=== PATIENT | male | born 1960 | race Caucasian/White ===

== ENCOUNTER 2017-01-29 14:13 | Inpatient (IN) | payer OTHER ==
[~2017-01-29] VITALS: Ht 188 cm; Wt 114.9 kg
[2017-01-29] VITALS (10 sets, daily range): BP systolic 12–150; BP diastolic 79–110
[~2017-01-29 14:13] MED LIST: AC325T; AC325T PO; AC500T PO; ACET-168 PO; ACET-2267 PO; ACID1TAB PO; AMOX-358 PO; AMPI500C9 PO; ASP325T PO; B&C/1TAB2 PO; CALC625T PO; CEFD300C3 PO; CEPH-38 PO; CEPH500C PO; CHOL4PAC16 PO; CIPR500T78 PO; CLAR-19 PO; CLIN-62 PO; CLON1TAB36 PO; CYCL-97 PO; DIAZ5TAB3 PO; DOCU-161 PO; GABA300C PO; GEMF600T3 PO; HYDR-2997 PO; HYDR-3583 PO; HYDR-3720 PO; HYDR-757 PO; HYDR1TAB85 PO; INSASP10V SQ; INSHRV SC; INSR1U SC; INSU100I16 SQ; INSU100I23 SQ; INSU100V5 SQ; INSU300I SQ; K-VANC1PB IV; LEVE1U SQ; LVF500T PO; MPR22TI TP; MTF500T PO; MULT-608 PO; MULT-974 PO; MULT1CAP27 PO; Multivitamins/Minerals Therap PO; OLOP30.5 NS; OXYC-12 PO; OXYC-272 PO; OXYC-465 PO; OXYC1TAB87 PO; PANT40VI3 IV; PNT40TEC PO; PROVIGIL 200 MG; ROSU10TA24 PO; SCR1T1 PO; SULF1TAB7 PO; VANCADD1 IV; VANCOMYCIN; ZOLP10TA5 PO; [UNRECOGNIZED DRUG - OTHER] IV
[2017-01-29] MEDS ORDERED: 1/2 NS W/KCL 20 MEQ/L 1,000 ML IV SCH (14:20)
[2017-01-29] MEDS ORDERED: 1/2 NS IV SOLUTION 1,000 ML IV SCH (14:20)
[2017-01-29] MEDS ORDERED: NS IV 1000 ML 1,000 ML IV ONE (14:20)
[2017-01-29] MEDS ORDERED: D5 1/2 NS W/KCL 20 MEQ/L 1,000 ML IV SCH (14:20)
[2017-01-29] MEDS ORDERED: D5 1/2 NS 1000 ML IV SOLUTION 1,000 ML IV SCH (14:30)
[2017-01-29] MEDS ORDERED: inSUlin REGULAR TPN/DRIP ONLY 250 UNITS in NORMAL SALINE 250 ML IV SCH (14:30)
--- NOTE | 2017-01-29 14:34 | History & Physicial ---
History of Present Illness History of Present Illness Reason for visit/HPI PT IS A 56 Y/O MALE WHO IS KNOWN TO ME FROM CLINIC. LUIS IS NOTORIOUSLY NON- COMPLIANT WITH DIABETIC MEDICATIONS AND ADMITS THAT HE HAS NOT BEEN TAKING HIS INSULIN FOR SEVERAL MONTHS. HIS REPORTS THAT THEY WERE ON A TRIP LAST WEEK, WHEN THEY GOT HOME ON SUNDAY HE WAS TIRED, AND SLEPT A LOT, AND WAS STILL "WIPED OUT" LAST NIGHT. THE PATIENT AND HIS REPORTS THAT LAST NIGHT HE WAS COMPLAINING OF HIS RIGHT ARM FEELING WEAK AND PAINFUL, THIS WAS AROUND 8PM, HE REPORTEDLY TOLD HER THAT THE SENSATION RESOLVED, AND THEN HE WENT TO BED. SHE CALLED TO WAKE HIM UP TODAY AROUND 10AM, HE WENT OUT TO FEED THE COWS, WAS STILL FEELING POORLY AND WAS SEEN IN THE OFFICE AROUND 2PM. HE DROVE HIMSELF TO THE OFFICE. BY THE TIME I GOT TO THE ROOM TO EVALUATE LUIS, HE WAS CONFUSED, NOT TRACKING CORRECTLY. DID NOT EAT BREAKFAST OR LUNCH TODAY AND HIS FSBS WAS 284. 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, 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 Recreational Drug Use: No 2nd Hand Smoke Exposure: No Physical Abuse Screen: No Sexual Abuse: No Recent Foreign Travel: No Contact w/other who traveled: No Recent Hopitalizations: Yes Recent Infectious Disease Expo: No Immunizations Up To Date Tetanus Booster (TDap): Unknown Date of Pneumonia Vaccine: Jan 02, 2011 Date of Influenza Vaccine: Aug 05, 2013 Seasonal Allergies Seasonal Allergies: No Surgeries HX Surgeries: Yes (BACK FUSION, bilateral toe amputation) Surgeries: Abdominal, Amputation, Appendectomy, Gallbladder, Orthopedic, Tonsillectomy Respiratory Hx Respiratory Disorders: No Cardiovascular Hx Cardiovascular Disorders: Yes Cardiac Disorders: High Cholesterol, Hypertension Neurological Hx Neurological Disorders: No Reproductive System Hx Reproductive Disorders: No Sexually Transmitted Disease: No HIV/AIDS: No Genitourinary Hx Genitourinary Disorders: No Gastrointestinal Hx Gastrointestinal Disorders: Yes Gastrointestinal Disorders: Abdominal Hernia Musculoskeletal Hx Musculoskeletal Disorders: Yes Musculoskeletal Disorders: Degenerate Disk Disease, Chronic Back Pain Endocrine Hx Endocrine Disorders: Yes Endocrine Disorders: Diabetes, Insulin dep HEENT HX ENT Disorders: No Loss of Vision: Denies Hearing Impairment: Denies Cancer Hx Cancer: No Psychosocial Hx Psychiatric Problems: Yes Behavioral Health Disorders: Anxiety, Depression Integumentary HX Skin/Integumentary Disorder: No Blood Transfusions Hx Blood Disorders: No Adverse Reaction to a Blood Tr: No Reviewed Nursing Assessment Reviewed/Agree w Nursing PMH: Yes Family Medical History Significant Family History: Heart Disease, Diabetes, Hypertension Family Hx: Family history: Cardiovascular disease 19 FATHER Family history: Diabetes mellitus 19 MOTHER Constitutional: No chills, No diaphoresis, malaise, weakness EENTM: other (VISION CHANGES PER FAMILY), No hearing loss Respiratory: No cough, No dyspnea on exertion, No short of breath Cardiovascular: No chest pain, No palpitations Gastrointestinal: abdominal pain (MID EPIGASTRIC), diarrhea (RECENTLY) Genitourinary: no symptoms reported Musculoskeletal: muscle pain (RIGHT ARM), muscle weakness Skin: other (SMALL ABRASION OF DORSUM OF GREAT TOES BILATERALLY) Psychiatric/Neurological: Denies Anxiety, Denies Headache, Denies Pre-Existing Deficit, Denies Tingling, Denies Tremors, Weakness (RIGHT ARM AND LEG) Physical Exam Vital Signs Vital Sign - Last 12Hours 01/29/17 14:30 Temp 99.3 Pulse 77 Resp 18 B/P (MAP) 129/91 Pulse Ox 99 O2 Delivery Room Air Capillary Refill : General Appearance: Other (MODERATE CONFUSION/WORD FINDING DIFFICULTY, ABLE TO STATE MY FIRST NAME AND THAT HE IS AT HOSPITAL) Eyes: Bilateral Eye EOMI, Bilateral Eye Normal Inspection, Bilateral Eye PERRL HEENT: Other (SLIGHTLY SLUGGISH PUPILS) Neck: Full Range of Motion, Normal Inspection, Non Tender, Supple Respiratory: Chest Non Tender, Lungs Clear, Normal Breath Sounds, No Accessory Muscle Use, No Respiratory Distress Cardiovascular: Regular Rate, Rhythm, No Edema, No Murmur, Other (DECREASED PERIPHERAL PULSES) Gastrointestinal: No Organomegaly, No Pulsatile Mass, Soft, Tenderness ( EPIGASTRIC), Other (DECREASED BOWEL SOUNDS) Rectal: Deferred Back: Normal Inspection, No Vertebral Tenderness Extremity: No Pedal Edema, Slow Capillary Refill, Other (AMPUTATION OF ALL DIGITS EXCEPT GREAT TOE ON LEFT FOOT AND TWO DIGITS ON RIGHT) Neurologic/Psychiatric: Motor Weakness (RIGHT UPPER AND LOWER EXTREMITY 3/5, LEFT 5/5), Other (AROUSABLE, ORIENTED TO PERSON, PLACE, NOT TIME, SLOW TO RESPOND) Skin: Warm/Dry Lymphatic: No Adenopathy Assessment/Plan Assessment and Plan WEAKNESS CONFUSION ENCEPHALOPATHY UNDETERMINED ETIOLOGY NONCOMPLIANT DIABETIC INSULIN DEPENDENT DIABETES HYPERTENSION HYPERLIPIDEMIA UPPER AND LOWER EXTREMITY WEAKNESS ON RIGHT HX OF INSECT BITES RECENT GASTROINTESTINAL ILLNESS RECENT TRAVEL TO [place] ENCEPHALOPATHY WITH WEAKNESS, HX OF INSECT BITES, TRAVEL ON PLANE - WILL TREAT WITH BROAD SPECTRUM ANTIBIOTICS, WAITING ON LUMBAR PUNCTURE, BLOOD CULTURE, MRI NEGATIVE, CT HEAD NEGATIVE, CAROTID NEGATIVE FOR MAJOR PLAQUE BUILD UP. PT'S HAS HISTORY OF ORAL APHTHOUS ULCERS, LAST ONE 3 WEEKS AGO - WILL TREAT PT WITH ACYCLOVIR IV, ONCE ABLE TO RELIABLY TAKE ORAL MEDICATIONS, WILL TREAT WITH ORAL ACYCLOVIR. HX OF INSECT BITES, SPECIFICALLY TIC - WILL CHECK TICK PANEL AND TREAT WITH IV DOXYCYCLINE UNTIL TICK PANEL COMES BACK. RECENT GI ILLNESS - CHECK CT SCAN OF ABDOMEN AND PELVIS. HYPERLIPIDEMIA - WHEN TAKING PO- WILL START LUIS ON STATIN HTN - START ON AZEB-INHIBITOR WHEN TAKING PO DIABETES - DIABETIC PROTOCOL WITH SLIDING SCALE, MONITOR FSBS CLOSELY. I HAVE DISCUSSED PT WITH [facility] - THEY DID NOT SEE ANY SIGN OF STROKE ON MRI, RECOMMENDED AGAINST ANY ACUTE STROKE TREATMENT AT THIS TIME. I HAVE INFORMED PT'S FAMILY OF THE PLAN AND THEY VOCALIZED UNDERSTANDING AND AGREEMENT WITH THE PLAN. Problems: Admission Diagnosis WEAKNESS CONFUSION ENCEPHALOPATHY UNDETERMINED ETIOLOGY NONCOMPLIANT DIABETIC INSULIN DEPENDENT DIABETES HYPERTENSION HYPERLIPIDEMIA UPPER AND LOWER EXTREMITY WEAKNESS ON RIGHT HX OF INSECT BITES RECENT GASTROINTESTINAL ILLNESS RECENT TRAVEL TO [place] ROSA MARIA HA MD Jan 29, 2017 14:34
--- NOTE | 2017-01-29 15:14 | Diagnostic Imaging Report ---
EXAM: CT head. TECHNIQUE: Noncontrast axial images of the brain were obtained. INDICATION: Confusion. Right arm weakness. FINDINGS: There is no intracranial hemorrhage, edema or mass effect. The brain parenchyma appears unremarkable. No hydrocephalus. The visualized portions of the orbits and paranasal sinuses appear unremarkable. IMPRESSION: Unremarkable study. Dictated by: Dictated on workstation # [id number]
[2017-01-29] MEDS ORDERED: ACET325T49 PO (15:51)
[2017-01-29] MEDS ORDERED: CLON1TAB3 PO (15:51)
[2017-01-29] MEDS ORDERED: LIDOCAINE UROJET 2% GEL 10 ML PKG ONE (15:52)
[2017-01-29] MEDS ORDERED: CATHETER FLUSH 10 ML SYR IV PRN (16:00)
[2017-01-29 16:12] LABS: MEAN PLATELET VOLUME 11.1 FL (7.4-10.4); RED BLOOD COUNT 5.56 10^6/uL (4.35-5.85); RED CELL DISTRIBUTION WIDTH 12.9 % (10.0-14.5); WHITE BLOOD COUNT 6.4 10^3/uL (4.3-11.0)
[2017-01-29 16:25] LABS: ANION GAP 10 MMOL/L (5-14); BLOOD UREA NITROGEN 15 MG/DL (7-18); BUN/CREATININE RATIO 15; CARBON DIOXIDE 23 MMOL/L (21-32); CHLORIDE 102 MMOL/L (98-107); CREATININE SERUM 1.01 MG/DL (0.60-1.30); POTASSIUM 4.1 MMOL/L (3.6-5.0); SODIUM 135 MMOL/L (135-145)
[2017-01-29 16:26] LABS: GFR ESTIMATED > 60; GLUCOSE 252 MG/DL (70-105)
[2017-01-29] MEDS ORDERED: FLU TRIvalent (5 YOA+) 2016-17 (AFLURIA) 0.5 ML IM ONE (17:30)
[2017-01-29 17:49] LABS: PROTHROMBIN TIME PATIENT 12.7 SEC (12.2-14.7)
[2017-01-29 17:50] LABS: BILIRUBIN,URINE NEGATIVE (NEGATIVE); KETONES,URINE 3+ (NEGATIVE); LEUKOCYTE ESTERASE ,URINE NEGATIVE (NEGATIVE); NITRITE,URINE NEGATIVE (NEGATIVE); PH,URINE 7 (5-9); PROTEIN,URINE 1+ (NEGATIVE); UROBILINOGEN,URINE NORMAL (NORMAL)
[2017-01-29] MEDS ORDERED: GADOBUTROL 15 MMOL/15 ML (GADAVIST) VIAL IV ONE (18:00)
--- NOTE | 2017-01-29 18:28 | Diagnostic Imaging Report ---
PROCEDURE: MR imaging of the brain with and without contrast. TECHNIQUE: Multiplanar, multisequence MR imaging of the brain was performed with and without contrast. INDICATION: Altered mental status, speech abnormalities, and right-sided weakness. FINDINGS: The diffusion series demonstrates no evidence of restriction to suggest acute ischemia. There is no MR evidence of acute intracranial hemorrhage. Sutton and white matter signal characteristics appear unremarkable. There is no intracranial mass effect or shift. There is no hydrocephalus. There is no abnormal extra-axial fluid collection. The basilar cisterns appear patent. The posterior fossa demonstrates no acute abnormalities. The pituitary gland and the pineal region appear normal. There is normal alignment of the craniocervical junction. Post contrast imaging of the brain demonstrates no MR evidence of pathologic intracranial enhancement. The intraorbital contents appear unremarkable. There are few fluid-opacified left mastoid air cells. The paranasal sinuses are clear. Expected arterial and dural venous sinus flow voids appear preserved. IMPRESSION: 1. No MR evidence of an acute intracranial abnormality. There is no evidence of acute ischemia or hemorrhage. There is no mass effect or hydrocephalus. There is no focal parenchymal signal abnormality and there is no evidence of pathologic intracranial enhancement. Dictated by: Dictated on workstation # [id number]
[2017-01-29] MEDS: NS IV 1000 ML 1,000 ML IV SCH (18:29)
[2017-01-29] MEDS: inSUlin (REGULAR) HUMAN 1 UNIT/0.01 ML (CHARGE PER UNIT) SC SCH (18:30)
[2017-01-29] MEDS ORDERED: VANCOMYCIN INJECTION 0.1 MG in NS (IVPB) 250 ML IV SCH (18:45)
[2017-01-29 19:08] LABS: ANION GAP 9 MMOL/L (5-14); BLOOD UREA NITROGEN 14 MG/DL (7-18); BUN/CREATININE RATIO 14; CALCIUM 8.6 MG/DL (8.5-10.1); CARBON DIOXIDE 24 MMOL/L (21-32); CHLORIDE 104 MMOL/L (98-107); GFR ESTIMATED > 60; GLUCOSE 201 MG/DL (70-105); POTASSIUM 3.7 MMOL/L (3.6-5.0); SODIUM 137 MMOL/L (135-145)
--- NOTE | 2017-01-29 19:18 | Diagnostic Imaging Report ---
PROCEDURE: CT abdomen and pelvis without contrast. TECHNIQUE: Multiple contiguous axial images were obtained through the abdomen and pelvis without the use of intravenous contrast. INDICATION: Abdominal tenderness. COMPARISON: CT abdomen and pelvis of 04/03/2014 FINDINGS: The lung bases are clear. No pericardial or pleural effusion. Kidneys are symmetric in size. No renal or ureteral calculi. No obstructive uropathy on either side. Urinary bladder is decompressed by Romero catheter. Prostate is not enlarged. Evaluation of the abdominal viscera is mildly limited without IV contrast. Allowing for this, liver, spleen, pancreas, and adrenals are normal. The stomach is decompressed. No bowel obstruction. Cholecystectomy. No bile duct dilatation. No pericolonic inflammatory changes. The appendix is normal. Normal caliber abdominal aorta. No abdominal or pelvic lymphadenopathy. No concerning osseous lesions. Long segment posterior instrumented fusion in the lower lumbar spine. There is also changes of discectomies in the lower lumbar spine. IMPRESSION: 1. No acute intra-abdominal process. 2. No abdominal aortic aneurysm. Dictated by: Dictated on workstation # [id number]
[2017-01-29 19:30] LABS: THYROID STIMULATING HORMONE 1.11 UIU/ML (0.35-4.94)
[2017-01-29] MEDS ORDERED: VANCOMYCIN 2000 MG/NS 500 ML IVPB IV NR ×2 (19:30)
[2017-01-29 19:32] LABS: BILIRUBIN,DIRECT 0.3 MG/DL (0.0-0.3); BILIRUBIN,INDIRECT 1.1 MG/DL; BILIRUBIN,TOTAL 1.4 MG/DL (0.1-1.0); MAGNESIUM 1.8 MG/DL (1.8-2.4); PHOSPHORUS 1.3 MG/DL (2.3-4.7)
[2017-01-29 19:33] LABS: ALBUMIN 3.7 G/DL (3.2-4.5); TOTAL PROTEIN 6.9 G/DL (6.4-8.2)
--- NOTE | 2017-01-29 20:08 | Progress Note-Standard ---
Standard Progress Note Progress Notes/Assess & Plan Progress/Assessment & Plan 01/29/17 [id number]: Called to ICU [address] Ha. Platelet count > 100, [address] of head normal. Consent obtained from patient's ; however, patient did consent by shaking his head yes. Patients LP was performed in a left lateral position. Midline scar noted on patient's lower back from what the patient indicated to me was from a fusion. Landmarks easy to identify. Patient' s lower back was cleaned with chloraprep. Sterile drape applied. 22g 3.5 inch spinal needle utilized to access space after 2 cc Lidocaine. CSF was easily obtained with 1 stick and opening pressure was measured at 32 mm Hg. A total of 4 cc of CSF was collected in each of the 4 vials, in numerical order 1-4. CSF was clear. Needle removed and bandaid applied over site. No complications. Patient tolerated well and assisted back to supine position. I will call appearance of CSF and opening pressure to Dr. Ha. Reported off to [employer]PERATOR. YASMINE THOMAS CRNA Jan 29, 2017 20:08
[2017-01-29 20:13] LABS: APPEARANCE,CSF CLEAR; COLOR,CSF COLORLESS; WHITE BLOOD CELL,CSF 0 CELLS (0-5)
[2017-01-29 20:30] LABS: ANION GAP 10 MMOL/L (5-14); BLOOD UREA NITROGEN 14 MG/DL (7-18); BUN/CREATININE RATIO 14; CALCIUM 8.8 MG/DL (8.5-10.1); CARBON DIOXIDE 24 MMOL/L (21-32); CHLORIDE 103 MMOL/L (98-107); CREATININE SERUM 1.01 MG/DL (0.60-1.30); GFR ESTIMATED > 60; GLUCOSE 181 MG/DL (70-105); POTASSIUM 3.8 MMOL/L (3.6-5.0); SODIUM 137 MMOL/L (135-145)
[2017-01-29 20:33] LABS: CSF GLUCOSE 138 MG/DL (50-80); CSF TOTAL PROTEIN 74 MG/DL (15-40)
[2017-01-29] MEDS: POTASSIUM CL 10MEQ/50ML IVPB 50 ML IV SCH ×2 (20:54→21:20)
[2017-01-29] MEDS ORDERED: clonazePAM 1 MG (KlonoPIN) TAB PO SCH (21:00)
[2017-01-29] MEDS: DOXYCYCLINE INJECTION 100 MG in NS (IVPB) 100 ML IV SCH (21:55)
[2017-01-29] MEDS: cefTRIAXone INJECTION 2,000 MG in NS (IVPB) 50 ML IV SCH (21:55)
[2017-01-29] MEDS ORDERED: clonazePAM 1 MG (KlonoPIN) TAB ONE (22:05)
[2017-01-29] MEDS ORDERED: ACETAMINOPHEN 325 MG TABLET/CAPLET (TYLENOL) ONE (22:06)
[2017-01-29] MEDS: ACETAMINOPHEN 325 MG TABLET/CAPLET (TYLENOL) PO PRN (22:20)
[2017-01-29] MEDS: NS IV SCH (23:58)
[2017-01-29] MEDS: ACYCLOVIR IV SCH (23:58)
[2017-01-30] VITALS (15 sets, daily range): BP systolic 97–136; BP diastolic 60–86
[2017-01-30] MEDS: inSUlin (REGULAR) HUMAN 1 UNIT/0.01 ML (CHARGE PER UNIT) SC SCH ×2 (00:32→05:50)
[2017-01-30] MEDS: NS IV 1000 ML 1,000 ML IV SCH ×3 (03:00→23:00)
[2017-01-30 04:01] LABS: BASOPHILS % (AUTO) 0 % (0-10); EOSINOPHILS # (AUTO) 0.1 10^3/uL (0.0-0.3); EOSINOPHILS % (AUTO) 1 % (0-10); LYMPHOCYTES # (AUTO) 2.5 X 10^3 (1.0-4.0); LYMPHOCYTES % (AUTO) 35 % (12-44); MEAN CORPUSCULAR HEMOGLOBIN 30 PG (25-34); MEAN CORPUSCULAR HGB CONC 36 G/DL (32-36); MEAN CORPUSCULAR VOLUME 83 FL (80-99); MEAN PLATELET VOLUME 10.5 FL (7.4-10.4); MONOCYTES # (AUTO) 0.6 X 10^3 (0.0-1.0); MONOCYTES % (AUTO) 8 % (0-12); NEUTROPHILS % (AUTO) 56 % (42-75); PLATELET COUNT 144 10^3/uL (130-400); RED BLOOD COUNT 5.16 10^6/uL (4.35-5.85); RED CELL DISTRIBUTION WIDTH 13.1 % (10.0-14.5); WHITE BLOOD COUNT 7.2 10^3/uL (4.3-11.0)
[2017-01-30 04:26] LABS: ALANINE AMINOTRANSFERASE 17 U/L (0-55); ALBUMIN 3.3 G/DL (3.2-4.5); ANION GAP 11 MMOL/L (5-14); ASPARTATE AMINO TRANSFERASE 18 U/L (5-34); BILIRUBIN,TOTAL 1.2 MG/DL (0.1-1.0); BLOOD UREA NITROGEN 14 MG/DL (7-18); BUN/CREATININE RATIO 14; CALCIUM 8.2 MG/DL (8.5-10.1); CARBON DIOXIDE 20 MMOL/L (21-32); CHLORIDE 107 MMOL/L (98-107); CHOLESTEROL 290 MG/DL (< 200); CREATININE SERUM 0.98 MG/DL (0.60-1.30); DIRECT LDL 138 MG/DL (1-129); GFR ESTIMATED > 60; GLUCOSE 168 MG/DL (70-105); MAGNESIUM 1.9 MG/DL (1.8-2.4); PHOSPHORUS 2.8 MG/DL (2.3-4.7); POTASSIUM 3.8 MMOL/L (3.6-5.0); SODIUM 138 MMOL/L (135-145); TOTAL PROTEIN 6.2 G/DL (6.4-8.2); TRIGLYCERIDES 493 MG/DL (<150); VLDL CHOLESTEROL 99 MG/DL (5-40)
[2017-01-30] MEDS: POTASSIUM CL 10MEQ/50ML IVPB 50 ML IV SCH (04:55)
[2017-01-30] MEDS: NS IV SCH (05:50)
[2017-01-30] MEDS: ENOXAPARIN 40 MG/0.4 ML (LOVENOX) SYR SC SCH (05:50)
[2017-01-30] MEDS: ACYCLOVIR IV SCH (05:50)
[2017-01-30] MEDS ORDERED: POTASSIUM CL 10MEQ/50ML IVPB 50 ML IV SCH (06:00)
[2017-01-30] MEDS ORDERED: KCL 20 MEQ TAB (K-DUR) PO SCH (06:00)
[2017-01-30] MEDS ORDERED: MAGNESIUM 1 GM/100 ML IVPB 100 ML IV SCH (06:00)
[2017-01-30] MEDS: DOXYCYCLINE INJECTION 100 MG in NS (IVPB) 100 ML IV SCH ×2 (08:07→20:07)
[2017-01-30] MEDS: VANCOMYCIN 1,750 MG/NS 500 ML IVPB IV SCH ×4 (08:07→20:58)
[2017-01-30] MEDS: cefTRIAXone INJECTION 2,000 MG in NS (IVPB) 50 ML IV SCH ×2 (08:07→20:37)
--- NOTE | 2017-01-30 08:24 | Diagnostic Imaging Report ---
PROCEDURE: US Carotid Duplex Bilateral. TECHNIQUE: Multiple real-time grayscale images were obtained over the carotid arteries in various projections bilaterally. Additional duplex Doppler and color Doppler images were also obtained. INDICATION: Confusion. Concern for TIA. FINDINGS: The carotid arteries demonstrate no significant plaque seen on grayscale images. Color Doppler demonstrates patency of the common, internal and external carotid arteries on both sides. The vertebral arteries demonstrate antegrade flow bilaterally. Peak systolic velocities are 44 cm/s, 68 cm/s and 82 cm/s from proximal to distal on the right and 59 cm/s, 60 cm/s and 53 cm/s on the left. ICA/CCA ratios are up to 1.1 on the right and 0.7 on the left. IMPRESSION: Estimated underlying stenosis is 0-25% bilaterally. Dictated by: Dictated on workstation # [id number]
--- NOTE | 2017-01-30 08:49 | Progress Note (SOAP) ---
Subjective Subjective/Events-last exam PT STATES THAT HE IS A LITTLE BETTER TODAY - HE DENIES CHEST PAIN, FEELING SHORT OF BREATH. HE REPORTS THAT HE FEELS A LITTLE STRONGER Review of Systems General: No Chills, No Fatigue HEENT: No Head Aches Pulmonary: No Dyspnea, No Cough Cardiovascular: No: Chest Pain Gastrointestinal: No: Abdominal Pain, Nausea Genitourinary: No Dysuria Neurological: Weakness (RIGHT HAND), No: Confusion Objective Exam Vital Signs Date Time Temp Pulse Resp B/P (MAP) Pulse Ox O2 Delivery O2 Flow Rate FiO2 01/30/17 07:00 87 01/30/17 06:00 78 6 109/80 98 Room Air 01/30/17 05:00 76 5 106/68 95 Room Air 01/30/17 04:22 96.9 01/30/17 04:00 98 01/30/17 04:00 84 5 113/75 97 Room Air 01/30/17 03:00 92 11 104/70 92 Room Air 01/30/17 02:00 17 99/70 95 Room Air 01/30/17 01:00 95 17 97/70 96 Room Air 01/30/17 01:00 96 01/30/17 00:01 97.1 89 18 136/81 100 Room Air 01/30/17 00:00 97 01/29/17 23:00 78 13 135/85 97 Room Air 01/29/17 22:00 73 12 12/79 97 Room Air 01/29/17 21:00 81 9 126/86 97 Room Air 01/29/17 20:00 97.6 98 20 126/103 100 Room Air 01/29/17 20:00 100 01/29/17 19:00 150/110 01/29/17 19:00 94 01/29/17 18:00 147/88 01/29/17 17:00 76 10 129/84 94 Room Air 01/29/17 16:00 75 18 132/91 98 Room Air 01/29/17 15:00 78 20 144/94 98 Room Air 01/29/17 14:30 99.3 77 18 129/91 98 Room Air 01/29/17 14:30 99 I & O 01/30/17 06:59 Intake Total 50 ml Output Total 900 ml Balance -850 ml Capillary Refill : Greater Than 3 Seconds General Appearance: No Apparent Distress, WD/WN HEENT: PERRL/EOMI, Pharynx Normal Neck: Full Range of Motion, Supple Respiratory: Chest Non Tender, Lungs Clear, Normal Breath Sounds Cardiovascular: Regular Rate, Rhythm Gastrointestinal: normal bowel sounds, non tender, soft, no organomegaly, no pulsatile mass Extremity: Normal Capillary Refill, No Pedal Edema, Other (SURGICAL DEFORMITIES OF FEET) Neurologic/Psychiatric: Alert, Oriented x3, No Motor/Sensory Deficits, Normal Mood/Affect Skin: Warm/Dry Lymphatic: No Adenopathy Results Lab Bad table Assessment/Plan Assessment/Plan Assess & Plan/Chief Complaint WEAKNESS CONFUSION ENCEPHALOPATHY UNDETERMINED ETIOLOGY NONCOMPLIANT DIABETIC INSULIN DEPENDENT DIABETES HYPERTENSION HYPERLIPIDEMIA UPPER AND LOWER EXTREMITY WEAKNESS ON RIGHT HX OF INSECT BITES RECENT GASTROINTESTINAL ILLNESS RECENT TRAVEL TO [place] ENCEPHALOPATHY WITH WEAKNESS, HX OF INSECT BITES, TRAVEL ON PLANE - WILL TREAT WITH BROAD SPECTRUM ANTIBIOTICS, WAITING ON LUMBAR PUNCTURE, BLOOD CULTURE, MRI NEGATIVE, CT HEAD NEGATIVE, CAROTID NEGATIVE FOR MAJOR PLAQUE BUILD UP. PT'S HAS HISTORY OF ORAL APHTHOUS ULCERS, LAST ONE 3 WEEKS AGO - WILL TREAT PT WITH ACYCLOVIR IV, ONCE ABLE TO RELIABLY TAKE ORAL MEDICATIONS, WILL TREAT WITH ORAL ACYCLOVIR. HX OF INSECT BITES, SPECIFICALLY TIC - WILL CHECK TICK PANEL AND TREAT WITH IV DOXYCYCLINE UNTIL TICK PANEL COMES BACK. RECENT GI ILLNESS - CHECK CT SCAN OF ABDOMEN AND PELVIS. HYPERLIPIDEMIA - WHEN TAKING PO- WILL START LUIS ON STATIN HTN - START ON AZEB-INHIBITOR WHEN TAKING PO DIABETES - DIABETIC PROTOCOL WITH SLIDING SCALE, MONITOR FSBS CLOSELY. I HAVE DISCUSSED PT WITH NEUROLOGY - THEY DID NOT SEE ANY SIGN OF STROKE ON MRI, RECOMMENDED AGAINST ANY ACUTE STROKE TREATMENT AT THIS TIME. I HAVE INFORMED PT'S FAMILY OF THE PLAN AND THEY VOCALIZED UNDERSTANDING AND AGREEMENT WITH THE PLAN. Clinical Quality Measures DVT/VTE Risk/Contraindication: Risk Factor Score Per Nursin RFS Level Per Nursing on Admit: 4+=Very High Stroke: Date of last known well: Jan 28, 2017 ROSA MARIA PRADO MD Jan 30, 2017 08:49
--- NOTE | 2017-01-30 09:18 | Diagnostic Imaging Report ---
INDICATION: Confusion, right-sided weakness. EXAMINATION: Chest 01/30/2017 Comparison made with prior examination from 12/01/15. FINDINGS: The heart is prominent but stable. Pulmonary vasculature is unremarkable. No infiltrates or effusions appreciated. There is no pneumothorax. IMPRESSION: 1. Stable chest with no acute process. Dictated by: Dictated on workstation # [id number]
--- NOTE | 2017-01-30 10:26 | Physical Therapy Evaluation ---
PT Evaluation-General Medical Diagnosis Admission Date Jan 29, 2017 at 14:30 Medical Diagnosis: diabetic ketoacidosis and right sided weakness Onset Date: Jan 29, 2017 Therapy Diagnosis Therapy Diagnosis: impaired mobility, endurance Height/Weight Height (Feet): 6 Height (Inches): 2.00 Weight (Pounds): 246 Weight (Ounces): 9.0 Precautions Precautions/Isolations: Standard Precautions Referral Physician: Melida Ha MD Reason for Referral: Evaluation/Treatment Medical History Pertinent Medical History: DM, HTN Additional Medical History high cholesterol, abdominal hernia, DDD, chronic back pain, anxiety, depression , surg (bilateral toe amputations, back fusions, abdominal, appendectomy, gallbladder, tonsillectomy) Current History Admitted from Dr. Ha's office with confusion, right side weakness Reviewed History: Yes Social History Home: [facility] Current Living Status: Spouse Unsure about steps, patient is a poor historian. Prior/Core FIM Prior Level of Function Functional [place] Measure 0=Not Assessed/NA 4=Minimal Assistance 1=Total Assistance 5=Supervision or Setup 2=Maximal Assistance 6=Modified [place] 3=Moderate Assistance 7=Complete [place] Bed Mobility: 7 Transfers (B,C,W/C) (FIM): 7 Gait: 7 PT Evaluation-Current Subjective Patient in bed pre tx, agrees to PT. He is nauseated but is willing to do what he can. He has no complaints of pain at this time. Pt/Family Goals "to get better and go home" Objective Patient Orientation: Confused Attachments: Romero Catheter, IV ROM/Strength ROM Lower Extremities WNL Strenght Lower Extremities 4+/5 gross bilateral lower extremities Integumentary/Posture Bladder Incontinence: Romero Cath Neuromuscular (Tone, Coordination, Reflexes) WNL Sensory Vision: Functional Hearing: Functional Sensation Right Lower Extremit: Impaired Sensation Left Lower Extremity: Impaired Sensation Lower Extremities Patient seems to have intact light touch sensation but it is decreased according to patient. Transfers Functional [place] Measure 0=Not Assessed/NA 4=Minimal Assistance 1=Total Assistance 5=Supervision or Setup 2=Maximal Assistance 6=Modified [place] 3=Moderate Assistance 7=Complete [place] Transfers (B, C, W/C) (FIM): 4 Scootin Rollin Supine to/from Sit: 5 Sit to/from Stand: 4 required some effort to go from supine to sit but he was able to do it without assist, patient did stand at the edge of the bed for a few minutes Gait Gait (FIM): 1 Distance: 3' Gait Level of Assist: 4 Gait Persons Needed: 1 Gait Assistive Device: None Comments/Gait Description slow, patient is not feeling well and did not want to walk further Balance Sitting Static: Normal Sitting Dynamic: Normal Standing Static: Fair Standing Dynamic: Fair Treatment evaluation, bed mobility and transfers, ambulation. Patient in recliner post tx with nurse call, phone, tray, all needs met. Nurse notified patient is in a chair. Assessment/Needs Patient is confused, has impairments in mobility, endurance. He was also ill and that could have contributed to his mobility impairments. 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 Time Frame: Feb 06, 2017 Transfers (B,C,W/C) (FIM): 5 Gait (FIM): 2 Distance: 50' Gait Level of Assist: 5 Gait Assistive Device: FWW PT Plan Problem List Problem List: Activity Tolerance, Functional Strength, Safety, Balance, Gait, Transfer Treatment/Plan Treatment Plan: Continue Plan of Care Treatment Plan: Bed Mobility, Education, Functional Activity Amy, Functional Strength, Gait, Safety, Therapeutic Exercise, Transfers Treatment Duration: Feb 06, 2017 # of days/week 5-6 Visits Per Week: 5-6 Minutes/Day (M-F): 15-30 Minutes/Day (Sat/For[place]): 15-30 Pt/Family Agrees w/Plan: Yes Safety Risks/Education Patient Education: Gait Training, Transfer Techniques, Correct Positioning, Safety Issues Teaching Recipient: Patient Teaching Methods: Demonstration, Discussion Response to Teaching: Reinforcement Needed Discharge Recommendations Therapy D/C Recommendations: Home w/ Family Support Time/GCodes Time In: 1000 Time Out: 1020 Total Billed Treatment Time: 20 Total Billed Treatment 1 visit EVL 20 min MAGDALENA WEN PT Jan 30, 2017 10:26
--- NOTE | 2017-01-30 11:19 | Occupational Therapy Eval ---
OT Evaluation-General/PLF Medical Diagnosis Admission Date Jan 29, 2017 at 14:30 Medical Diagnosis: diabetic ketoacidosis and right sided weakness Onset Date: Jan 29, 2017 Therapy Diagnosis Therapy Diagnosis: weakness, decr activity tolerance, decr self care Height/Weight Height (Feet): 6 Height (Inches): 2.00 Weight (Pounds): 246 Weight (Ounces): 9.0 Precautions Precautions/Isolations: Droplet Isolation, Standard Precautions Safety Interventions: None Referral Physician: Melida Ha MD Referral Reason: Evaluation/Treatment Medical History Pertinent Medical History: DM, HTN Additional Medical History Back fusion, bilat toe amputation, abdominal hernia, DJD, chronic back pain, anxiety, depression. Current History Weakness on R, confusion, encephalopathy Reviewed History: Yes Social History Home: [facility] Current Living Status: Spouse ADL-Prior Level of Function ADL PLOF Comments Pt reproted that he has been able to manage all of his basic ADLs without assistance. 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 Reported he has a headache a the base of his skull but did not rate or describe pain. Appearance Alert, cooperative Mental Status/Objective Patient Orientation: Person, Place, Situation Attachments: Romero Catheter, IV, Oxygen, Telemetry Current Hand Dominance: Right Upper Extremity ROM Grossly WFL except unable to fully extend R elbow due to discomfort. 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 It has returned. He thinks it's likely tendonitis. Upper Extremity Strength Grossly 4+/5 bilat (except R elbow) ADL-Treatment ADL-Current Pt hasn't been up out of bed to eat or toilet. Functional [place] Measure 0=Not Assessed/NA 4=Minimal Assistance 1=Total Assistance 5=Supervision or Setup 2=Maximal Assistance 6=Modified [place] 3=Moderate Assistance 7=Complete IndependenceIRFPAI Quality Coding Scale 6 Independent with activity with or without an assistive device 5 Patient requires set up or clean up by helper. Patient completes activity by themselves 4 Supervision or touching assist (CGA). [place] provide cues , steadying assist 3 The helper provides less than half the effort to complete the activity 2 The helper provides more than half the effort to complete the activity 1 Dependent. The helper does all the effort to complete an activity 7 Patient refused to complete or attempt activity 9 The patient did not perform the activity before the current illness or injury 88 Not attempted due to Medical conditions or safety concerns Other Treatments Reviewed treatment plan, with pt agreement. Education OT Patient Education: Purpose of tx/functional activities, Rehab process Teaching Recipient: Patient Teaching Methods: Discussion Response to Teaching: Verbalize Understanding OT Residential Goals Postal Transportation Clerk Goals Time Frame: Feb 06, 2017 Eating (FIM): 6 Grooming(FIM): 6 Bathing(FIM): 6 Upper Body Dressing(FIM): 6 Lower Body Dressing(FIM): 6 Toileting(FIM): 6 Transfers (B,C,W/C) (FIM): 6 Toilet/Commode Transfer(FIM): 6 Shower Transfer(FIM): 6 Additional Goals: 2-Verbalize Understanding, 3-ImproveStrength/Amy 1=Demonstrate adherence to instructed precautions during ADL tasks. 2=Patient will verbalize/demonstrate understanding of assistive devices/ modifications for ADL. 3=Patient will improve strength/tolerance for activity to enable patient to perform ADL's. OT Education/Plan Problem List/Assessment Assessment: Decreased Activ Tolerance, Decreased UE Strength, Dependent Transfers, Impaired Funct Balance, Impaired Self-Care Skills Pt would benefit from skilled OT to increase his independence in basic self care to allow him to safely return to his home, with . Discharge Recommendations Plan/Recommendations: Continue POC Treatment Plan/Plan of Care Treatment,Training & Education: Yes Patient would benefit from OT for education, treatment and training to promote independence in ADL's, mobility, safety and/or upper extremity function for ADL' s. Plan of Care: ADL Retraining, Functional Mobility, UE Funct Exercise/Act, UE Neuromus Re-Ed/Coord Treatment Duration: Feb 06, 2017 # of days/week 5 Visits Per Week: 5 Agreement: Yes Rehab Potential: Good Time/GCodes Start Time: 09:00 Stop Time: 09:14 Total Time Billed (hr/min): 14 Billed Treatment Time visit, 14 minutes evaluation low complexity JOANN RAUSCH OT Jan 30, 2017 11:19
--- NOTE | 2017-01-30 14:49 | ST Dysphagia Evaluation ---
Speech Evaluation-General Medical Diagnosis diabetic ketoacidosis and right sided weakness Onset Date: Jan 29, 2017 Therapy Diagnosis Therapy Diagnosis: Oropharyngeal Swallow Function WNL Precautions Precautions/Isolations: Droplet Isolation, Standard Precautions Referral Referring Physician: Dr. Melida Ha Reason for Referral: Evaluation/Treatment Bedside Swallowing Evaluation Medical History Pertinent Medical History: DM, HTN Reviewed History: Yes Social History Current Living Status: Spouse Speech PLF/Current-Dysphagia Prior Level of Function The patient denied any challenges with his swallowing function prior to admission. At home, the patient consumes a regular diet with thin liquids. Subjective The patient was recently admitted to [facility] with increased confusion and right sided weakness. The patient was seated upright in chair upon entrance. The patient greeted the clinician appropriately and agreed to participate in the dysphagia evaluation. CXR: 01/30/2017: Stable chest with no acute process. Cognitive Status Patient Orientation: Person, Place, Time, Situation Oral Motor Skills Dentition: Natural Ability to Follow Directions: Excellent The patient is NPO pending the results of the swallowing evaluation. Oral Expression Ability: Mild Impairment Voice Voice Phonatory-Based Quality: Normal Voice Pitch: Normal Voice Loudness: Normal Face Facial Symmetry: Symmetrical Oral-Facial Assessment Oral-Facial Dentition: Normal Smile: Normal Puff Cheeks: Normal Lingual Protrusion: Normal Lingual ROM: Normal Lingual Strength: Normal Pharynx Velopharyngeal Move.: Normal Volitional Dry Swallow: Yes Dysphagia Evaluation Consistencies Presented: Regular, Thin Liquid, Pureed No oral impairments were noted throughout the evaluation. No pharyngeal impairments were noted throughout the evaluation. - Thin Liquid, Puree, Solid: No signs/symptoms of aspiration or laryngeal penetration were demonstrated with multiple boluses of each consistency provided. The patient's vocal quality remained clear throughout the assessment. To note: The patient did report nausea with all consistencies provided. The patient's RN was notified of the patient's report. Dietary Recommendations: Regular Liquid Recommendations: Thin Swallowing Precautions: Small Bites and Sips, Sitting Upright 90 Degrees Dysphagia Evaluation Summary Oropharyngeal Swallow Function WNL Speech-Plan Treatment Plan Speech Therapy Treatment Plan: Discontinue ST Evaluation, only. Rehab Potential: Good Safety Risks/Education Teaching Recipient: Patient Teaching Methods: Discussion Response to Teaching: Verbalize Understanding Education Topics Provided: Results, Recommendations, Signs/symptoms of aspiration Time Speech Therapy Time In: 10:30 Speech Therapy Time Out: 10:45 Total Billed Time: 15 Billed Treatment Time 1, CECIL CHEEMA Jan 30, 2017 14:49
--- NOTE | 2017-01-30 15:00 | Consultation-Cardiology ---
HPI-Cardiology Cardiology Consultation Date of Consultation 01/30/17 Date of Admission Indication: change in mental status HPI 56 years old gentleman with history of hypertension, hyperlipidemia and diabetes mellitus, noncompliance with medication or appointments, last seen in my office was 2 years ago, went to Dr. Ha's office yesterday afternoon after having 2 days of increasing weakness more pronounced on the right side. She referred him for direct admission to the hospital by the time he arrived to the hospital he had more profound weakness, slurred speech, unable to talk, underwent extensive workup including CT scan of the head, MRI of the head and carotid ultrasound which were all negative. Patient was monitored in the intensive care unit, overnight he had some improvement, still having slight slurred speech but significantly better than last night, his weakness is better. Patient was started on broad-spectrum antibiotics. No signs of stroke were noted, case was discussed with Dr. kathleen yesterday and she discussed it with [facility] neurologist. 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 Alcohol Use: Denies Use Recreational Drug Use: No Smoking Status: Never a Smoker 2nd Hand Smoke Exposure: No Recent Foreign Travel: No Recent Infectious Disease Expo: No Recent Hopitalizations: Yes Physical Abuse Screen: No Sexual Abuse: No Immunizations Up To Date Tetanus Booster (TDap): Unknown Date of Pneumonia Vaccine: Jan 02, 2011 Date of Influenza Vaccine: Aug 05, 2013 Past Medical History past medical history as discussed below Family Medical History Significant Family History: Heart Disease, Diabetes, Hypertension Family History: Family history: Cardiovascular disease 19 FATHER Family history: Diabetes mellitus 19 MOTHER Constitutional: see HPI, malaise, weakness EENTM: no symptoms reported, see HPI Respiratory: no symptoms reported, see HPI Cardiovascular: no symptoms reported, see HPI Gastrointestinal: no symptoms reported, see HPI Genitourinary: no symptoms reported, see HPI Musculoskeletal: see HPI, muscle weakness Skin: no symptoms reported, see HPI Psychiatric/Neurological: See HPI, Weakness, Other (slurred speech) Reviewed Test Results Reviewed Test Results Lab Laboratory Tests Test 01/29/17 15:49 01/29/17 15:55 01/29/17 17:10 01/29/17 18:21 Range/Units Glucometer 235 H 192 H 70-110 MG/DL White Blood Count 6.4 4.3-11.0 10^3/uL Red Blood Count 5.56 4.35-5.85 10^6/uL Hemoglobin 16.6 13.3-17.7 G/DL Hematocrit 46 40-54 % Mean Corpuscular Volume 82 80-99 FL Mean Corpuscular Hemoglobin 30 25-34 PG Mean Corpuscular Hemoglobin Concent 37 H 32-36 G/DL Red Cell Distribution Width 12.9 10.0-14.5 % Platelet Count 148 130-400 10^3/uL Mean Platelet Volume 11.1 H 7.4-10.4 FL Sodium Level 135 135-145 MMOL/L Potassium Level 4.1 3.6-5.0 MMOL/L Chloride Level 102 98-107 MMOL/L Carbon Dioxide Level 23 21-32 MMOL/L Anion Gap 10 5-14 MMOL/L Blood Urea Nitrogen 15 7-18 MG/DL Creatinine 1.01 0.60-1.30 MG/DL Estimat Glomerular Filtration Rate > 60 BUN/Creatinine Ratio 15 Glucose Level 252 H 70-105 MG/DL Hemoglobin A1c 10.7 H 4.5-6.2 % Calcium Level 9.0 8.5-10.1 MG/DL Urine Color YELLOW Urine Clarity CLEAR Urine pH 7 5-9 Urine Specific [place] 1.005 L 1.016-1.022 Urine Protein 1+ H NEGATIVE Urine Glucose (UA) 4+ H NEGATIVE Urine Ketones 3+ H NEGATIVE Urine Nitrite NEGATIVE NEGATIVE Urine Bilirubin NEGATIVE NEGATIVE Urine Urobilinogen NORMAL NORMAL MG/DL Urine Leukocyte Esterase NEGATIVE NEGATIVE Urine RBC (Auto) NEGATIVE NEGATIVE Urine RBC RARE /HPF Urine WBC NONE /HPF Urine Crystals NONE /LPF Urine Bacteria NONE /HPF Urine Casts NONE /LPF Urine Mucus NEGATIVE /LPF Urine Culture Indicated NO Test 01/29/17 18:35 01/29/17 19:51 01/29/17 19:54 01/29/17 23:56 Range/Units Sodium Level 137 137 135-145 MMOL/L Potassium Level 3.7 3.8 3.6-5.0 MMOL/L Chloride Level 104 103 98-107 MMOL/L Carbon Dioxide Level 24 24 21-32 MMOL/L Anion Gap 9 10 5-14 MMOL/L Blood Urea Nitrogen 14 14 7-18 MG/DL Creatinine 1.00 1.01 0.60-1.30 MG/DL Estimat Glomerular Filtration Rate > 60 > 60 BUN/Creatinine Ratio 14 14 Glucose Level 201 H 181 H 70-105 MG/DL Calcium Level 8.6 8.8 8.5-10.1 MG/DL Phosphorus Level 1.3 L 2.3-4.7 MG/DL Magnesium Level 1.8 1.8-2.4 MG/DL Total Bilirubin 1.4 H 0.1-1.0 MG/DL Direct Bilirubin 0.3 0.0-0.3 MG/DL Indirect Bilirubin 1.1 MG/DL Aspartate Amino Transf (AST/SGOT) 16 5-34 U/L Alanine Aminotransferase (ALT/SGPT) 18 0-55 U/L Alkaline Phosphatase 74 40-136 U/L Total Protein 6.9 6.4-8.2 G/DL Albumin 3.7 3.2-4.5 G/DL Thyroid Stimulating Hormone (TSH) 1.11 0.35-4.94 UIU/ML Free Thyroxine 1.02 0.70-1.48 NG/DL CSF Tube Number 4 CSF Appearance CLEAR CSF Color COLORLESS CSF WBC 0 0-5 CELLS CSF RBC 0 0-0 CELLS CSF Lymphocytes % CSF Mononuclear WBCs % CSF Polynuclear WBCs % CSF Glucose 138 H 50-80 MG/DL CSF Total Protein 74 H 15-40 MG/DL Lactic Acid Level 1.67 0.50-2.00 MMOL/L Glucometer 152 H 70-110 MG/DL Test 01/30/17 03:40 Range/Units White Blood Count 7.2 4.3-11.0 10^3/uL Red Blood Count 5.16 4.35-5.85 10^6/uL Hemoglobin 15.6 13.3-17.7 G/DL Hematocrit 43 40-54 % Mean Corpuscular Volume 83 80-99 FL Mean Corpuscular Hemoglobin 30 25-34 PG Mean Corpuscular Hemoglobin Concent 36 32-36 G/DL Red Cell Distribution Width 13.1 10.0-14.5 % Platelet Count 144 130-400 10^3/uL Mean Platelet Volume 10.5 H 7.4-10.4 FL Neutrophils (%) (Auto) 56 42-75 % Lymphocytes (%) (Auto) 35 12-44 % Monocytes (%) (Auto) 8 0-12 % Eosinophils (%) (Auto) 1 0-10 % Basophils (%) (Auto) 0 0-10 % Neutrophils # (Auto) 4.0 1.8-7.8 X 10^3 Lymphocytes # (Auto) 2.5 1.0-4.0 X 10^3 Monocytes # (Auto) 0.6 0.0-1.0 X 10^3 Eosinophils # (Auto) 0.1 0.0-0.3 10^3/uL Basophils # (Auto) 0.0 0.0-0.1 10^3/uL Sodium Level 138 135-145 MMOL/L Potassium Level 3.8 3.6-5.0 MMOL/L Chloride Level 107 98-107 MMOL/L Carbon Dioxide Level 20 L 21-32 MMOL/L Anion Gap 11 5-14 MMOL/L Blood Urea Nitrogen 14 7-18 MG/DL Creatinine 0.98 0.60-1.30 MG/DL Estimat Glomerular Filtration Rate > 60 BUN/Creatinine Ratio 14 Glucose Level 168 H 70-105 MG/DL Calcium Level 8.2 L 8.5-10.1 MG/DL Phosphorus Level 2.8 2.3-4.7 MG/DL Magnesium Level 1.9 1.8-2.4 MG/DL Total Bilirubin 1.2 H 0.1-1.0 MG/DL Aspartate Amino Transf (AST/SGOT) 18 5-34 U/L Alanine Aminotransferase (ALT/SGPT) 17 0-55 U/L Alkaline Phosphatase 63 40-136 U/L Total Protein 6.2 L 6.4-8.2 G/DL Albumin 3.3 3.2-4.5 G/DL Triglycerides Level 493 H <150 MG/DL Cholesterol Level 290 H < 200 MG/DL LDL Cholesterol Direct 138 H 1-129 MG/DL VLDL Cholesterol 99 H 5-40 MG/DL HDL Cholesterol 34 L 40-60 MG/DL Physical Exam Vital Signs Vital Sign - Last 12Hours 01/29/17 14:30 Temp 99.3 Pulse 77 Resp 18 B/P (MAP) 129/91 Pulse Ox 99 O2 Delivery Room Air Capillary Refill : Greater Than 3 Seconds General Appearance: WD/WN, Moderate Distress Eyes: Bilateral Eye EOMI, Bilateral Eye Normal Inspection, Bilateral Eye PERRL HEENT: PERRL/EOMI, TMs Normal, Normal ENT Inspection, Pharynx Normal Neck: Full Range of Motion, Normal Inspection, Non Tender, Supple, Carotid Bruit Respiratory: Chest Non Tender, Lungs Clear, Normal Breath Sounds, No Accessory Muscle Use, No Respiratory Distress Cardiovascular: Regular Rate, Rhythm, No Edema, No Gallop, No JVD, No Murmur, Normal Peripheral Pulses Gastrointestinal: Normal Bowel Sounds, No Organomegaly, No Pulsatile Mass, Non Tender, Soft Back: Normal Inspection, No CVA Tenderness, No Vertebral Tenderness Extremity: Normal Capillary Refill, Normal Inspection, Normal Range of Motion, Non Tender, No Calf Tenderness, No Pedal Edema Neurologic/Psychiatric: Alert, Oriented x3, Other (slurred speech with weakness on the right side, improvement today compared to yesterday.) Skin: Normal Color, Warm/Dry Lymphatic: No Adenopathy A/P-Cardiology Admission Diagnosis Change in mental status Hypertension Hyperlipidemia Diabetes mellitus Assessment/Plan Acute change in mental status, unknown etiology, questionable encephalopathy, started on broad-spectrum antibiotics, CT scan of the head, MRI of the head and carotid ultrasound were all normal, case was discussed with Dr. Ha. I'll likely to be stroke. Reviewed with [facility] neurologist. Improving today. Continue to monitor Generalized fatigue and loss of energy. Secondary to above. History of chest pain, atypical in presentation, currently no active chest pain. Continue to monitor. The mellitus, poorly controlled, noncompliant with medication, managed by primary care physician. 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 DEE was normal in the past. Clinical Quality Measures DVT/VTE Risk/Contraindication: Risk Factor Score Per Nursin RFS Level Per Nursing on Admit: 4+=Very High Stroke: Date of last known well: Jan 28, 2017 JONH MARIA MD Jan 30, 2017 15:00
[2017-01-30] MEDS: ACYCLOVIR 800 MG/NS 250 ML IVPB IV SCH ×4 (15:02→21:39)
[2017-01-30] MEDS: inSUlin ASPART (NovoLOG) 1 UNIT/0.01 ML (CHARGE PER UNIT) SC SCH ×2 (16:21→21:39)
[2017-01-30] MEDS ORDERED: clonazePAM 1 MG (KlonoPIN) TAB PO SCH (21:00)
[2017-01-30] MEDS: ACETAMINOPHEN 325 MG TABLET/CAPLET (TYLENOL) PO PRN (21:20)
[2017-01-31 00:20] VITALS: BP 119/62
[2017-01-31 04:05] VITALS: BP 111/61
[2017-01-31 04:42] LABS: BASOPHILS % (AUTO) 0 % (0-10); EOSINOPHILS # (AUTO) 0.1 10^3/uL (0.0-0.3); EOSINOPHILS % (AUTO) 1 % (0-10); LYMPHOCYTES # (AUTO) 1.8 X 10^3 (1.0-4.0); LYMPHOCYTES % (AUTO) 32 % (12-44); MEAN CORPUSCULAR HEMOGLOBIN 30 PG (25-34); MEAN CORPUSCULAR HGB CONC 35 G/DL (32-36); MEAN CORPUSCULAR VOLUME 86 FL (80-99); MEAN PLATELET VOLUME 10.8 FL (7.4-10.4); MONOCYTES # (AUTO) 0.7 X 10^3 (0.0-1.0); MONOCYTES % (AUTO) 12 % (0-12); NEUTROPHILS # (AUTO) 3.2 X 10^3 (1.8-7.8); NEUTROPHILS % (AUTO) 55 % (42-75); PLATELET COUNT 124 10^3/uL (130-400); RED BLOOD COUNT 4.56 10^6/uL (4.35-5.85); RED CELL DISTRIBUTION WIDTH 13.4 % (10.0-14.5); WHITE BLOOD COUNT 5.8 10^3/uL (4.3-11.0)
[2017-01-31 05:01] LABS: CALCIUM 7.5 MG/DL (8.5-10.1); CREATININE SERUM 1.76 MG/DL (0.60-1.30); MAGNESIUM 1.7 MG/DL (1.8-2.4); PHOSPHORUS 2.7 MG/DL (2.3-4.7); POTASSIUM 3.4 MMOL/L (3.6-5.0)
[2017-01-31] MEDS: ACYCLOVIR 800 MG/NS 250 ML IVPB IV SCH ×2 (05:46)
[2017-01-31] MEDS: inSUlin ASPART (NovoLOG) 1 UNIT/0.01 ML (CHARGE PER UNIT) SC SCH ×3 (05:46→16:00)
[2017-01-31] MEDS: ENOXAPARIN 40 MG/0.4 ML (LOVENOX) SYR SC SCH (05:46)
[2017-01-31] MEDS ORDERED: TROUGH ORDER-PHARMACY XX NR (07:00)
[2017-01-31 08:47] VITALS: BP 119/74
--- NOTE | 2017-01-31 08:54 | Cardiology Progress Note ---
Subjective Subjective/Events-last exam Patient sitting up in chair, complaining of generalized fatigue. Denies any CP or dyspnea. Review of Systems General: No Night Sweats, No Fatigue, No Malaise HEENT: No Visual Changes, No Dysphasia, No Sore Throat Pulmonary: No Dyspnea, No Cough Cardiovascular: No: Chest Pain, Palpitations Gastrointestinal: Nausea, No: Vomiting Genitourinary: No Dysuria Musculoskeletal: No: back pain, neck pain Neurological: Weakness, No: Change in speech, Confusion, Numbness Objective-Cardiology Exam Last Set of Vital Signs Vital Signs 01/31/17 08:47 Temp 98.2 Pulse 98 Resp 24 B/P (MAP) 119/74 Pulse Ox 99 O2 Delivery Room Air Capillary Refill : Greater Than 3 Seconds I&O Intake and Output 01/31/17 00:00 Intake Total 3619.5 ml Output Total 1050 ml Balance 2569.5 ml Intake Oral 1050 ml IV Total 2569.5 ml Output Urine Total 1050 ml # Voids 1 # Bowel Movements 1 General: Alert, Oriented X3 HEENT: Atraumatic, PERRLA Lungs: Clear to Auscultation Heart: Regular Rate, Normal S1, Normal S2 Abdomen: Normal Bowel Sounds Skin: No Rashes, No Significant Lesion Neuro: Normal Speech, Cranial Nerves 3-12 NL Psych/Mental Status: Mental Status NL, Mood NL Results Lab Laboratory Tests 01/31/17 04:10 A/P-Cardiology Admission Diagnosis Change in mental status Hypertension Hyperlipidemia Diabetes mellitus Assessment/Plan Acute change in mental status, unknown etiology, questionable encephalopathy, started on broad-spectrum antibiotics, CT scan of the head, MRI of the head and carotid ultrasound were all normal, case was discussed with Dr. Ha, Reviewed with neurologist. Improving. Continue to monitor Generalized fatigue and loss of energy. Secondary to above. History of chest pain, atypical in presentation, currently no active chest pain. Continue to monitor. Diabetes mellitus, poorly controlled, noncompliant with medication, managed by primary care physician. Hyperlipidemia, Non compliant with medication in the past. Planning to start on statin once tolerating PO. Hypertension, controlled. Continue to monitor BP/HR. 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 DEE was normal in the past. Clinical Quality Measures DVT/VTE Risk/Contraindication: Risk Factor Score Per Nursin RFS Level Per Nursing on Admit: 4+=Very High Stroke: Date of last known well: Jan 28, 2017 CHRISTOPHER CASTELLANO Jan 31, 2017 08:54
[2017-01-31] MEDS: cefTRIAXone INJECTION 2,000 MG in NS (IVPB) 50 ML IV SCH (09:00)
[2017-01-31] MEDS: DOXYCYCLINE INJECTION 100 MG in NS (IVPB) 100 ML IV SCH (09:10)
--- NOTE | 2017-01-31 09:12 | Physical Therapy Daily Note ---
PT Daily Note-Current Subjective Pt sitting in recliner upon arrival. Pt reports feeling pretty groggy and that this episode was one of the worst feelings. Pt reports being able to talk and communicate better than yesterday. Pt agrees to PT. Pain Location: No Pain Reported Mental Status Patient Orientation: Person, Place, Time, Situation Attachments: IV Transfers Functional [place] Measure 0=Not Assessed/NA 4=Minimal Assistance 1=Total Assistance 5=Supervision or Setup 2=Maximal Assistance 6=Modified [place] 3=Moderate Assistance 7=Complete IndependenceIRFPAI Quality Coding Scale 6 Independent with activity with or without an assistive device 5 Patient requires set up or clean up by helper. Patient completes activity by themselves 4 Supervision or touching assist (CGA). [place] provide cues , steadying assist 3 The helper provides less than half the effort to complete the activity 2 The helper provides more than half the effort to complete the activity 1 Dependent. The helper does all the effort to complete an activity 7 Patient refused to complete or attempt activity 9 The patient did not perform the activity before the current illness or injury 88 Not attempted due to Medical conditions or safety concerns Transfers (B, C, W/C) (FIM): 5 Scootin Sit to/from Stand: 5 Bed to/from Chair: 5 Weight Bearing Weight Bearing Restriction: Full Weight Bearing Location Restriction: LE Bilateral Gait Training Gait (FIM): 5 Distance (FIM): 3=150 ft Distance: 150' Gait Level of Assist: 5 Gait Persons Needed: 1 Gait Assistive Device: None Pt pushed IV pole and used it for support if needed. Pt's ulises is slow but steady and no LOB. Treatments Pt communicated medical history and timeline of what occurred to get him to hospital. Pt communicating better. Pt able to put own shoes on as well as sit to stand transfer at A with no AD. Pt ambulated in hallway while pushing IV pole at A, no AD. Dr Ha arrived as pt transferred back to recliner to rest. Dr Ha reports taking pt off Precautions due to testing coming back negative. Dr aH will try to have pt discharging later today. Pt is left to visit with with all needs met at end of tx. Assessment Pt is improving with communication, transfers and mobility safely. PT Intermediate Goals Intermediate Goals PT Cardiology Tech Goals Time Frame: Feb 06, 2017 Transfers (B,C,W/C) (FIM): 5 Gait (FIM): 2 Distance: 50' Gait Level of Assist: 5 Gait Assistive Device: FWW PT Plan Problem List Problem List: Activity Tolerance, Functional Strength, Gait Treatment/Plan Treatment Plan: Continue Plan of Care Treatment Plan: Bed Mobility, Education, Functional Activity Amy, Functional Strength, Gait, Safety, Therapeutic Exercise, Transfers Treatment Duration: Feb 06, 2017 Visits Per Week: 5-6 Minutes/Day (M-F): 15-30 Minutes/Day (Sat/[place]): 15-30 Safety Risks/Education Patient Education: Correct Positioning, Safety Issues Teaching Recipient: Patient Teaching Methods: Discussion Response to Teaching: Verbalize Understanding Time/GCodes Time In: 840 Time Out: 905 Total Billed Treatment Time: 25 Total Billed Treatment visit, FA (10m) & GT (15m) FERNANDA CARNEY PTA Jan 31, 2017 09:12
--- NOTE | 2017-01-31 09:26 | Discharge Summary ---
Diagnosis/Chief Complaint Date of Admission Jan 29, 2017 at 14:30 Date of Discharge Admission Diagnosis Admission Diagnosis WEAKNESS CONFUSION ENCEPHALOPATHY UNDETERMINED ETIOLOGY NONCOMPLIANT DIABETIC INSULIN DEPENDENT DIABETES HYPERTENSION HYPERLIPIDEMIA UPPER AND LOWER EXTREMITY WEAKNESS ON RIGHT HX OF INSECT BITES RECENT GASTROINTESTINAL ILLNESS RECENT TRAVEL TO [place] Discharge Diagnosis WEAKNESS CONFUSION ENCEPHALOPATHY UNDETERMINED ETIOLOGY NONCOMPLIANT DIABETIC INSULIN DEPENDENT DIABETES HYPERTENSION HYPERLIPIDEMIA UPPER AND LOWER EXTREMITY WEAKNESS ON RIGHT HX OF INSECT BITES RECENT GASTROINTESTINAL ILLNESS RECENT TRAVEL TO [place] Reason Hospital Visit PT IS A 56 Y/O MALE WHO IS KNOWN TO ME FROM CLINIC. LUIS IS NOTORIOUSLY NON- COMPLIANT WITH DIABETIC MEDICATIONS AND ADMITS THAT HE HAS NOT BEEN TAKING HIS INSULIN FOR SEVERAL MONTHS. HIS REPORTS THAT THEY WERE ON A TRIP LAST WEEK, WHEN THEY GOT HOME ON SUNDAY HE WAS TIRED, AND SLEPT A LOT, AND WAS STILL "WIPED OUT" LAST NIGHT. THE PATIENT AND HIS REPORTS THAT LAST NIGHT HE WAS COMPLAINING OF HIS RIGHT ARM FEELING WEAK AND PAINFUL, THIS WAS AROUND 8PM, HE REPORTEDLY TOLD HER THAT THE SENSATION RESOLVED, AND THEN HE WENT TO BED. SHE CALLED TO WAKE HIM UP TODAY AROUND 10AM, HE WENT OUT TO FEED THE COWS, WAS STILL FEELING POORLY AND WAS SEEN IN THE OFFICE AROUND 2PM. HE DROVE HIMSELF TO THE OFFICE. BY THE TIME I GOT TO THE ROOM TO EVALUATE LUIS, HE WAS CONFUSED, NOT TRACKING CORRECTLY. DID NOT EAT BREAKFAST OR LUNCH TODAY AND HIS FSBS WAS 284. Discharge Summary Discharge Physical Examination Allergies: Coded Allergies: No Known Drug Allergies (Unverified , 07/23/13) Vitals & I&Os General Appearance: Alert, Oriented X3 HEENT: Atraumatic, PERRLA Respiratory: Clear to Auscultation Cardiovascular: Regular Rate, Normal S1, Normal S2 Abdominal: Normal Bowel Sounds Skin: No Rashes, No Significant Lesion Neuro: Normal Speech, Cranial Nerves 3-12 NL Psych/Mental Status: Mental Status NL, Mood NL Hospital Course WEAKNESS CONFUSION ENCEPHALOPATHY UNDETERMINED ETIOLOGY NONCOMPLIANT DIABETIC INSULIN DEPENDENT DIABETES HYPERTENSION HYPERLIPIDEMIA UPPER AND LOWER EXTREMITY WEAKNESS ON RIGHT HX OF INSECT BITES RECENT GASTROINTESTINAL ILLNESS RECENT TRAVEL TO [place] ENCEPHALOPATHY WITH WEAKNESS, HX OF INSECT BITES, TRAVEL ON PLANE - WILL TREAT WITH BROAD SPECTRUM ANTIBIOTICS, LUMBAR PUNCTURE, BLOOD CULTURE, MRI NEGATIVE, CT HEAD NEGATIVE, CAROTID NEGATIVE FOR MAJOR PLAQUE BUILD UP. 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 HX OF INSECT BITES, SPECIFICALLY TIC - WILL CHECK TICK PANEL AND TREAT WITH DOXYCYCLINE. RECENT GI ILLNESS - CHECK CT SCAN OF ABDOMEN AND PELVIS. - NEGATIVE HYPERLIPIDEMIA - WHEN TAKING PO- WILL START LUIS ON STATIN HTN - START ON AZEB-INHIBITOR WHEN TAKING PO DIABETES - DIABETIC PROTOCOL WITH SLIDING SCALE, MONITOR FSBS CLOSELY. I HAVE DISCUSSED PT WITH NEUROLOGY - THEY DID NOT SEE ANY SIGN OF STROKE ON MRI, RECOMMENDED AGAINST ANY ACUTE STROKE TREATMENT AT THIS TIME. I HAVE INFORMED PT'S FAMILY OF THE PLAN AND THEY VOCALIZED UNDERSTANDING AND AGREEMENT WITH THE PLAN. Pending Labs Discharge Condition at discharge IMPROVED Instructions to patient/family Please see electonic discharge instructions given to patient. Discharge Medications Reviewed and agree with Discharge Medication list on patient's Discharge Instruction sheet Clinical Quality Measures DVT/VTE Risk/Contraindication: Risk Factor Score Per Nursin RFS Level Per Nursing on Admit: 4+=Very High Stroke: Date of last known well: Jan 28, 2017 ROSA MARIA PRADO MD Jan 31, 2017 09:26
[2017-01-31] MEDS ORDERED: DOXY100T2 PO (09:33)
[2017-01-31] MEDS ORDERED: [UNRECOGNIZED DRUG - CODE] MC (09:33)
[2017-01-31] MEDS ORDERED: ACYC400T PO (09:33)
[2017-01-31] MEDS ORDERED: LISI10TA2 PO (09:33)
[2017-01-31] MEDS ORDERED: ATOR40TA PO (09:33)
[2017-01-31] MEDS ORDERED: INSU300I SQ (09:33)
[2017-01-31] MEDS ORDERED: CLOP75TA69 PO (09:33)
--- NOTE | 2017-01-31 09:34 | Discharge Inst-Complex ---
PDI Med Rec & Follow Up Appt. New Medications: Atorvastatin Calcium (Lipitor) 40 Mg Tablet 40 MG PO DAILY, #30 TAB 6 Refills Clopidogrel Bisulfate (Plavix) 75 Mg Tablet 75 MG PO DAILY, #30 TAB 6 Refills Doxycycline Hyclate (Doxycycline Hyclate) 100 Mg Tablet 100 MG PO BID for 10 Days, #20 TAB Insulin Glargine,Hum.rec.anlog (Toujeo Solostar) 300 Unit/1 Ml Insuln.pen 10 UNIT SQ DAILY, #3 EA Lisinopril (Lisinopril) 10 Mg Tablet 10 MG PO DAILY, #90 TAB 3 Refills Convent, Insulin Disposable (Easy Touch Pen Needle) 1 Each Dis.needle 1 EACH MC DAILY for DIABETIC INJECTION, #100 6 Refills USE WITH INSULIN PEN Acyclovir (Acyclovir) 400 Mg Tablet 800 MG PO 5XD for 5 Days, #25 TAB Continued Medications: Acetaminophen (Acetaminophen) 325 Mg Tablet 650 MG PO HS, TAB TAKES 2 (325 MG) TABLETS Clonazepam (Clonazepam) 1 Mg Tablet 2 MG PO HS TAKES 2 (1 MG) TABLETS Prescription: Transmitted to Pharmacy Activity, Diet and PDI Resume Normal Activity: No (NO DRIVING OR TRACTOR DRIVING X 1 WEEK) Discharge Diet: ADA Diet Diet After 24 Hours: Clear Liquid if Nauseous Drink 6-8 Glasses of Fluid/Day: Yes Driving Instructions: No Driving for 1 Week Symptoms to Reoprt to : Appetite Changes, Bleeding Excessive, Pain Increased , Constipation(Persistant), Fever Over 101 Degrees F, Pain/Pressure in Chest, Shortness of Breath For Problems or Questions: Contact Your Physician, Go to Emergency Room ROSA MARIA PRADO MD Jan 31, 2017 09:34
[2017-01-31] MEDS: ACYCLOVIR 400 MG TABLET (ZOVIRAX) PO SCH ×2 (10:06→13:33)
[2017-01-31] MEDS: NS IV 1000 ML 1,000 ML IV SCH (10:34)
--- NOTE | 2017-01-31 11:34 | Cardiology Progress Note ---
Subjective Subjective/Events-last exam patient is sitting up in a chair, feeling better, still having some slurred speech and right side weakness. Overall slightly better compared to yesterday. Review of Systems General: No Chills, No Night Sweats, No Fatigue, No Malaise, No Appetite, No Other HEENT: No Head Aches, No Visual Changes, No Eye Pain, No Ear Pain, No Dysphasia , No Sinus Congestion, No Post Nasal Drip, No Sore Throat, No Other Pulmonary: No Dyspnea, No Cough, No Pleuritic Chest Pain, No Other Cardiovascular: No: Chest Pain, Edema, Lt Headedness, Orthopnea, Other, Palpitations, Paroxysmal Noc. Dyspnea Objective-Cardiology Exam Last Set of Vital Signs Vital Signs 01/31/17 08:47 Temp 98.2 Pulse 98 Resp 24 B/P (MAP) 119/74 Pulse Ox 99 O2 Delivery Room Air Capillary Refill : Greater Than 3 Seconds I&O Intake and Output 01/31/17 00:00 Intake Total 3619.5 ml Output Total 1050 ml Balance 2569.5 ml Intake Oral 1050 ml IV Total 2569.5 ml Output Urine Total 1050 ml # Voids 1 # Bowel Movements 1 General: Alert, Oriented X3, Cooperative HEENT: Atraumatic, PERRLA Lungs: Clear to Auscultation Heart: Regular Rate, Normal S1, Normal S2 Abdomen: Normal Bowel Sounds Skin: No Rashes, No Significant Lesion Neuro: Normal Speech, Cranial Nerves 3-12 NL Psych/Mental Status: Mental Status NL, Mood NL Results Lab Laboratory Tests 01/31/17 04:10 A/P-Cardiology Admission Diagnosis Change in mental status Hypertension Hyperlipidemia Diabetes mellitus Assessment/Plan Acute change in mental status, unknown etiology, questionable encephalopathy, started on broad-spectrum antibiotics, CT scan of the head, MRI of the head and carotid ultrasound were all normal, case was discussed with Dr. Ha, Reviewed with neurologist. still having some residual slurred speech and weakness but overall improving. Generalized fatigue and loss of energy. Secondary to above. History of chest pain, atypical in presentation, currently no active chest pain. Continue to monitor. Diabetes mellitus, poorly controlled, noncompliant with medication, managed by primary care physician. Hyperlipidemia, Non compliant with medication in the past. Planning to start on statin once tolerating PO. Hypertension, controlled. Continue to monitor BP/HR. 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 DEE was normal in the past. Clinical Quality Measures DVT/VTE Risk/Contraindication: Risk Factor Score Per Nursin RFS Level Per Nursing on Admit: 4+=Very High Stroke: Date of last known well: Jan 28, 2017 JONH MARIA MD Jan 31, 2017 11:34
[2017-01-31 12:00] VITALS: BP 137/77
--- NOTE | 2017-01-31 12:00 | Occ Therapy Progress Note ---
Therapy Progress Note Pt. up in bathroom independently. OT checked on him before discharge. Pt. states that he does not need help with daily things. States that he is doing "fine" with tasks such as bathing and dressing. OT asked he felt he needed to practice before discharge. Pt. states "no." Pt. to discharge. 1, visit 1109 DAVID ESCOBAR OT Jan 31, 2017 12:00
[2017-01-31 13:48] LABS: EHRLICHIA CHAFFEENSIS G ABY <1:16 (<1:16)
[2017-01-31 14:42] LABS: IGG ROCKY MOUNTAIN SPOTTED FEV <1:16 (<1:16); IGM ROCKY MOUNTAIN SPOTTED FEV <1:10 (<1:10)
[2017-01-31 16:12] VITALS: BP 137/77
[2017-02-01 07:27] LABS: TULAREMIA ANTIBODY <1:20
[2017-02-01 15:45] LABS: LYME ANTIBODY C 0.27 (0.00-0.90)
--- OUTSIDE RECORDS SUMMARY | 2017-02-13 18:37 | XMS REPORT | Continuity of Care Document ---
Author Author [facility] Organization [facility] Address Unknown Phone Unavailable Care Team Providers Care Clay Molder Name Role Phone NasraGildardo ventura PCP [phone] Source Comments Some departments are not documenting in the electronic medical record. If you do not see the information that you expected, contact Release of Information in the Health Information Management department at [phone] for further assistance in locating additional records.[facility] Active Allergies and Adverse Reactions No Known Allergies Current Medications Prescription Sig. Disp. Refills Start End Date Status Date clonazePAM (KLONOPIN) 1 Take 1 mg by mouth at Active mg tablet bedtime daily. pregabalin (LYRICA) 75 mg Take 1 Cap by mouth three 270 Cap 3 Active capsule times daily. 14 Active Problems Problem Noted Date Diabetic foot (HCC) 11/19/2013 S/P repair of ventral hernia 08/30/2013 Ventral hernia 08/13/2013 Abdominal pain 08/11/2013 Most Recent Encounters Date Type Specialty Providers Description 01/30/2017 Ancillary Radiology Outpatient, Radiologist Diagnosis unknown Orders (Primary Dx) 01/29/2017 Hospital Radiology Encounter 01/29/2017 Hospital Radiology Encounter 01/29/2017 Hospital Radiology Encounter Immunizations Name Dates Previously Given Next Due Flu Vaccine Trivalent=>3 08/31/2013 Yo (Preservative Free) Social History Tobacco Use Types Packs/Day Years Used Date Never Smoker Smokeless Tobacco: Never Used Alcohol Use Drinks/Week oz/Week Comments No Last Filed Vital Signs Vital Sign Reading Time Taken Blood Pressure 146/79 11/17/2013 3:22 PM [employer] Pulse 100 11/17/2013 3:22 PM [employer] Temperature 36.2 C (97.1 F) 11/17/2013 3:22 PM [employer] Respiratory Rate 20 11/17/2013 3:22 PM [employer] Height 1.88 m (6' 2") 11/17/2013 3:22 PM [employer] Weight 116.121 kg (256 lb) 11/17/2013 3:22 PM [employer] Body Mass Index 32.85 11/17/2013 3:22 PM [employer] Oxygen Saturation 99% 09/20/2013 9:44 PM [employer] Plan of Care Health Maintenance Due Date Last Done Comments Hepatitis C Screening 1962 Physical (Comprehensive) 1969 Exam Pertussis Vaccine 1973 Tetanus Vaccine 1979 Colorectal Cancer 2012 Screening Influenza Vaccine 07/06/2017 08/31/2013 Results from Last 3 Months * CT HEAD EXTERNAL IMAGING (01/29/2017 12:30 AM) Narrative This order has been auto finalized and does not contain a result. * US CAROTID EXTERNAL IMAGING (01/29/2017 12:15 AM) Narrative This order has been auto finalized and does not contain a result. * MRI HEAD EXTERNAL IMAGING (01/29/2017) Narrative This order has been auto finalized and does not contain a result.
--- OUTSIDE RECORDS SUMMARY | 2017-02-13 18:39 | XMS REPORT | Continuity of Care Document ---
Author Author [facility] Organization [facility] Address Unknown Phone Unavailable Allergies Active Description Code Type Severity Reaction Onset Reported/Identified Relationship to Patient Clinical Status Yes No Known Drug Allergies [id number] Drug Allergy Unknown N/ A 07/23/2013 Medications Problems Date Dx Coded Attending Type Code Diagnosis Diagnosed By 10/04/1599 MARIANNE RUIZ APRN Ot E10.621 TYPE 1 DIABETES MELLITUS WITH FOOT ULCER 10/04/1599 MARIANNE RUIZ APRN Ot L97.529 NON-PRESSURE CHRONIC ULCER OTH PRT LEFT 05/01/2010 Ot 338.18 05/01/2010 Ot 789.09 05/01/2010 Ot 998.13 11/04/2011 Ot 250.80 11/04/2011 Ot 681.10 11/04/2011 Ot 682.6 11/04/2011 Ot 707.15 11/04/2011 Ot 730.17 11/04/2011 Ot 731.8 11/04/2011 Ot 785.4 11/04/2011 Ot V15.81 11/13/2011 Ot 730.27 11/25/2011 Ot 250.00 11/25/2011 Ot 997.62 12/02/2011 Ot 041.12 12/02/2011 Ot 250.00 12/02/2011 Ot 997.62 12/22/2011 Ot 041.12 12/22/2011 Ot 250.00 12/22/2011 Ot 296.20 12/22/2011 Ot 300.00 12/22/2011 Ot 682.7 12/22/2011 Ot 997.62 12/22/2011 Ot V58.67 12/26/2011 Ot 250.00 12/26/2011 Ot 276.50 12/26/2011 Ot 401.9 12/26/2011 Ot 787.01 12/26/2011 Ot E930.8 12/26/2011 Ot V58.67 02/24/2012 Ot 686.9 03/05/2012 Ot 686.9 03/21/2012 Ot 730.20 03/25/2012 Ot 730.20 04/24/2012 Ot 038.40 04/24/2012 Ot 250.00 04/24/2012 Ot 311 04/24/2012 Ot 784.0 04/24/2012 Ot 995.91 04/24/2012 Ot 999.32 04/24/2012 Ot V15.82 04/24/2012 Ot V49.72 04/24/2012 Ot V58.67 05/01/2012 Ot 682.6 07/17/2012 Ot V58.69 07/17/2012 Ot V58.81 01/02/2013 Ot 730.27 03/20/2013 Ot 681.10 04/06/2013 Ot 682.7 04/06/2013 Ot 730.27 07/24/2013 JUDIE HANSEN, BRENTON R Ot 250.00 07/24/2013 JUDIE HANSEN, BRENTON R Ot 458.9 07/24/2013 JUDIE HANSEN, BRENTON R Ot 553.21 07/24/2013 JUDIE HANSEN, BRENTON R Ot V12.79 07/24/2013 JUDIE HANSEN, BRENTON R Ot V45.89 10/10/2013 SAMUEL DPM, JOBY Marie Ot 250.00 10/10/2013 BLAKIPHO DPM, JOBY Marie Ot 701.1 10/10/2013 DREWHO DPM, JOBY Marie Ot 735.4 10/30/2013 JUDIE HANSEN, BRENTON R Ot 250.00 10/30/2013 JUDIE HANSEN, BRENTON R Ot 300.00 10/30/2013 JUDIE HANSEN, BRENTON R Ot 311 10/30/2013 JUDIE HANSEN, BRENTON R Ot 338.29 10/30/2013 JUDIE HANSEN, BRENTON R Ot 682.2 10/30/2013 JUDIE HANSEN, BRENTON R Ot 707.9 10/30/2013 JUDIE HANSEN, BRENTON R Ot 722.6 10/30/2013 JUDIE HANSEN, BRENTON R Ot 786.05 10/30/2013 JUDIE HANSEN, BRENTON R Ot 789.00 10/30/2013 JUDIE HANSEN, BRENTON R Ot 998.59 10/30/2013 JUDIE HANSEN, BRENTON R Ot V45.89 10/30/2013 JUDIE HANSEN, BRENTON R Ot V49.71 10/30/2013 JUDIE HANSEN, BRENTON R Ot V49.72 10/30/2013 JUDIE HANSEN, BRENTON R Ot V58.67 11/09/2013 JOHAN HANSEN, JAMES K Ot 724.5 11/09/2013 JOHAN HANSEN, JAMES K Ot 729.5 11/09/2013 JOHAN HANSEN, JAMES K Ot 959.19 11/09/2013 JOHAN HANSEN, JAMES K Ot E000.8 11/09/2013 JOHAN HANSEN, JAMES K Ot E001.0 11/09/2013 JOHAN HANSEN, JAMES K Ot E849.4 11/09/2013 JOHAN HANSEN, JAMES K Ot E885.9 01/28/2014 JUDIE HANSEN, BRENTON R Ot 682.7 01/28/2014 JUDIE HANSEN, BRENTON R Ot 730.27 04/06/2014 JUDIE HANSEN, BRENTON R Ot 250.00 04/06/2014 JUDIE HANSEN, BRENTON R Ot 276.8 04/06/2014 JUDIE HANSEN, BRENTON R Ot 368.13 04/06/2014 JUDIE HANSEN, BRENTON R Ot 401.9 04/06/2014 JUDIE HANSEN, BRENTON R Ot 531.90 04/06/2014 JUDIE HANSEN, BRENTON R Ot 535.40 04/06/2014 JUDIE HANSEN, BRENTON R Ot 535.50 04/06/2014 JUDIE HANSEN, BRENTON R Ot 536.9 04/06/2014 JUDIE HANSEN, BRENTON R Ot 562.11 04/06/2014 JUDIE HANSEN, BRENTON R Ot 564.00 04/06/2014 JUDIE HANSEN, BRENTON R Ot 584.9 04/06/2014 JUDIE HANSEN, BRENTON R Ot 599.0 04/06/2014 JUDIE HANSEN, BRENTON R Ot 780.64 04/06/2014 JUDIE HANSEN, BRENTON R Ot 781.6 04/06/2014 JUDIE HANSEN, BRENTON R Ot 787.91 07/14/2014 SAMUEL RO, JOBY G Ot 250.00 07/14/2014 BLANCHO DPM, JOBY Marie Ot 681.10 07/14/2014 BLANCHO DPM, JOBY Marie Ot 707.15 07/14/2014 BLANCHO DPM, JOBY Marie Ot V58.67 09/21/2014 JUDIE HANSEN, BRENTON R Ot 250.70 09/21/2014 JUDIE HANSEN, BRENTON R Ot 785.4 09/21/2014 JUDIE HANSEN, BRENTON R Ot V58.63 10/08/2014 JUDIE HANSEN, BRENTON R Ot 250.70 10/08/2014 JUDIE HANSEN, BRENTON R Ot 785.4 10/08/2014 JUDIE HANSEN, BRENTON R Ot V58.63 11/30/2014 Ot 783.21 11/30/2014 Ot 789.00 11/30/2014 Ot 782.0 11/30/2014 Ot 250.02 11/30/2014 Ot 603.9 11/30/2014 Ot 728.84 11/30/2014 Ot 789.09 11/30/2014 Ot V45.4 11/30/2014 Ot 730.27 11/30/2014 Ot 682.7 11/30/2014 Ot V72.83 11/30/2014 Ot 682.7 11/30/2014 Ot 728.71 11/30/2014 Ot 729.6 11/30/2014 Ot V90.10 11/30/2014 Ot 780.60 11/30/2014 Ot 686.9 11/30/2014 Ot 681.10 11/30/2014 Ot 730.27 11/30/2014 Ot V72.84 11/30/2014 Ot 730.27 11/30/2014 DEBORAH HANSEN, EMA Delgado Ot 724.02 11/30/2014 BLANCHO DPM, JOBY Marie Ot V72.84 11/30/2014 JUDIE HANSEN, BRENTON R Ot 780.79 11/30/2014 Ot 682.7 11/30/2014 Ot 730.27 11/30/2014 CANDACE HANSEN, JONH Mchugh Ot 278.00 11/30/2014 CANDACE HANSEN, JONH Mchugh Ot 397.0 11/30/2014 CANDACE HANSEN, JONH Mchugh Ot 424.0 11/30/2014 JONH MARIA MD Ot 780.79 11/30/2014 CANDACE HANSEN, JONH Mchugh Ot 785.1 11/30/2014 CANDACE HANSEN, JONH Jeison Ot 786.50 11/30/2014 CANDACE HANSEN, JONH Mchugh Ot V85.30 11/30/2014 BLANCHO DPM, JOBY Marie Ot 892.0 11/30/2014 BLANCHO DPM, JOBY Marie Ot E000.8 11/30/2014 BLANCHO DPM, JOBY Marie Ot E928.9 11/30/2014 BLANCHO DPM, JOBY Marie Ot V72.84 11/30/2014 JUDIE HANSEN, BRENTON Alaina Ot 250.70 11/30/2014 JUDIE HANSEN, BRENTON R Ot 785.4 11/30/2014 JUDIE HANSEN, BRENTON Foley Ot V58.63 12/03/2014 BLANCHO DPM, JOBY Marie Ot 250.80 12/03/2014 BLANCHO DPM, JOBY Marie Ot 401.9 12/03/2014 BLANCHO DPM, JOBY Marie Ot 707.15 12/03/2014 BLANCHO DPM, JOBY Marie Ot 707.22 12/03/2014 BLANCHO DPM, JOBY Marie Ot V15.81 01/29/2015 BLANCHO DPM, JOBY Marie Ot 250.00 01/29/2015 BLANCHO DPM, JOBY Marie Ot 682.7 02/02/2015 BLANCHO DPM, JOBY Marie Ot 250.80 02/02/2015 BLANCHO DPM, JOBY Marie Ot 443.9 02/02/2015 BLANCHO DPM, JOBY Marie Ot 681.10 02/02/2015 BLANCHO DPM, JOBY Marie Ot 707.15 02/02/2015 BLANCHO DPM, JOBY Marie Ot 250.80 02/02/2015 BLANCHO DPM, JOBY Marie Ot 443.9 02/02/2015 BLANCHO DPM, JOBY Marie Ot 681.10 02/02/2015 BLANCHO DPM, JOBY Marie Ot 707.15 02/03/2015 Ot 782.0 02/03/2015 Ot 250.02 02/03/2015 Ot 603.9 02/03/2015 Ot 728.84 02/03/2015 Ot 789.09 02/03/2015 Ot V45.4 02/03/2015 Ot 730.27 02/03/2015 Ot 682.7 02/03/2015 Ot V72.83 02/03/2015 Ot 682.7 02/03/2015 Ot 728.71 02/03/2015 Ot 729.6 02/03/2015 Ot V90.10 02/03/2015 Ot 780.60 02/03/2015 Ot 686.9 02/03/2015 Ot 681.10 02/03/2015 Ot 730.27 02/03/2015 Ot V72.84 02/03/2015 Ot 730.27 02/03/2015 DEBORAH HANSEN, EMA Delgado Ot 724.02 02/03/2015 BLANCHO DPM, JOBY Marie Ot V72.84 02/03/2015 JUDIE HANSEN, BRENTON Foley Ot 780.79 02/03/2015 Ot 682.7 02/03/2015 Ot 730.27 02/03/2015 CANDACE HANSEN, JONH Mchugh Ot 278.00 02/03/2015 CANDACE HANSEN, JONH Mchugh Ot 397.0 02/03/2015 CANDACE HANSEN, JONH Mchugh Ot 424.0 02/03/2015 CANDACE HANSEN, JONH Mchugh Ot 780.79 02/03/2015 CANDACE HANSEN, JONH Mchugh Ot 785.1 02/03/2015 CANDACE HANSEN, JONH Mchugh Ot 786.50 02/03/2015 CANDACE HANSEN, JONH Mchugh Ot V85.30 02/03/2015 BLANCHO DPM, JOBY Marie Ot 892.0 02/03/2015 BLANCHO DPM, JOBY Marie Ot E000.8 02/03/2015 BLANCHO DPM, JOBY Marie Ot E928.9 02/03/2015 BLANCHO DPM, JOBY Marie Ot V72.84 02/03/2015 JUDIE HANSEN, BRENTON Foley Ot 250.70 02/03/2015 JUDIE HANSEN, BRENTON Foley Ot 785.4 02/03/2015 JUDIE HANSEN, BRENTON Foley Ot V58.63 02/03/2015 BLANCHO DPM, JOBY Marie Ot 250.00 02/03/2015 BLANCHO DPM, JOBY Marie Ot 682.7 02/03/2015 BLANCHO DPM, JOBY Marie Ot 707.15 02/03/2015 BLANCHO DPM, JOBY Marie Ot V72.83 02/03/2015 BLANCHO DPM, JOBY Marie Ot V74.8 02/16/2015 BLANCHO DPM, JOBY Marie Ot 250.00 02/16/2015 BLANCHO DPM, JOBY Marie Ot 682.7 04/26/2015 JUDIE HANSEN, BRENTON R Ot 041.09 04/26/2015 JUDIE HANSEN, BRENTON R Ot 041.49 04/26/2015 JUDIE HANSEN, BRENTON R Ot 250.60 04/26/2015 JUDIE HANSEN, BRENTON R Ot 250.80 04/26/2015 JUDIE HANSEN, BRENTON R Ot 357.2 04/26/2015 JDUIE HANSEN, BRENTON R Ot 401.9 04/26/2015 JUDIE HANSEN, BRENTON R Ot 682.7 04/26/2015 JUDIE HANSEN, BRENTON R Ot 707.15 04/26/2015 JUDIE HANSEN, BRENTON R Ot 707.23 04/26/2015 JUDIE HANSEN, BRENTON R Ot V12.04 04/26/2015 JUDIE HANSEN, BRENTON R Ot V49.72 04/26/2015 JUDIE HANSEN, BRENTON R Ot V58.67 05/04/2015 EMIGDIO HANSEN, COLTON Marie Ot 250.60 05/04/2015 EMIGDIO HANSEN, COLTON Marie Ot 250.80 05/04/2015 EMIGDIO HANSEN, COLTON Marie Ot 682.7 05/04/2015 EMIGDIO HANSEN, COLTON Marie Ot 707.15 05/04/2015 EMIGDIO HANSEN, COLTON Marie Ot 735.4 05/04/2015 EMIGDIO HANSEN, COLTON Marie Ot V49.72 05/13/2015 JUDIE HANSEN, BRENTON R Ot 041.89 05/13/2015 JUDIE HANSEN, BRENTON R Ot 250.80 05/13/2015 JUDIE HANSEN, BRENTON R Ot 401.9 05/13/2015 JUDIE HANSEN, BRENTON R Ot 707.15 05/13/2015 JUIDE HANSEN, BRENTON R Ot 730.27 05/13/2015 JUDIE HANSEN, BRENTON R Ot V49.72 05/13/2015 JUDIE HANSEN, BRENTON R Ot V58.67 05/13/2015 JUDIE HANSEN, BRENTON R Ot 041.89 05/13/2015 JUDIE HANSEN, BRENTON R Ot 250.80 05/13/2015 JUDIE HANSEN, BRENTON R Ot 401.9 05/13/2015 JUDIE HANSEN, BRENTON R Ot 707.15 05/13/2015 JUDIE HANSEN, BRENTON R Ot 730.27 05/13/2015 JUDIE HANSEN, BRENTON R Ot V49.72 05/13/2015 JUDIE HANSEN, BRENTON R Ot V58.67 05/13/2015 JUDIE HANSEN, BRENTON R Ot 041.89 05/13/2015 JUDIE HANSEN, BRENTON R Ot 250.80 05/13/2015 JUDIE HANSEN, BRENTON R Ot 401.9 05/13/2015 JUDIE HANSEN, BRENTON R Ot 707.15 05/13/2015 JUDIE HANSEN, BRENTON R Ot 730.27 05/13/2015 JUDIE HANSEN, BRENTON R Ot V49.72 05/13/2015 JUDIE HANSEN, BRENTON R Ot V58.67 05/13/2015 JUDIE HANSEN, BRENTON R Ot 041.89 05/13/2015 JUDIE HANSEN, BRENTON R Ot 250.80 05/13/2015 JUDIE HANSEN, BRENTON R Ot 401.9 05/13/2015 JUDIE HANSEN, BRENTON R Ot 707.15 05/13/2015 JUDIE HANSEN, BRENTON R Ot 730.27 05/13/2015 JUDIE HANSEN, BRENTON R Ot V49.72 05/13/2015 JUDIE HANSEN, BRENTON R Ot V58.67 05/14/2015 EMIGDIO HANSEN, COLTON Marie Ot 250.60 05/14/2015 EMIGDIO HANSEN, COLTON Marie Ot 250.80 05/14/2015 EMIGDIO HANSEN, COLTON Marie Ot 682.7 05/14/2015 EMIGDIO HANSEN, COLTON Marie Ot 707.15 05/14/2015 EMIGDIO HANSEN, COLTON Marie Ot 735.4 05/14/2015 EMIGDIO HANSEN, COLTON Marie Ot V49.72 05/17/2015 EMIGDIO HANSEN, COLTON Marie Ot 250.80 05/17/2015 EMIGDIO HANSEN, COLTON Marie Ot 707.15 05/17/2015 JUDIE HANSEN, BRENTON R Ot 041.10 05/17/2015 JUDIE HANSEN, BRENTON R Ot 041.89 05/17/2015 JUDIE HANSEN, BRENTON R Ot 250.80 05/17/2015 JUDIE HANSEN, BRENTON R Ot 401.9 05/17/2015 JUDIE HANSEN, BRENTON R Ot 707.15 05/17/2015 JUDIE HANSEN, BRENTON R Ot 730.27 05/17/2015 JUDIE HANSEN, BRENTON R Ot V49.72 05/17/2015 JUDIE HANSEN, BRENTON R Ot V58.67 05/24/2015 EMIGDIO HANSEN, COLTON Marie Ot 250.60 05/24/2015 EMIGDIO HANSEN, COLTON Marie Ot 250.80 05/24/2015 EMIGDIO HANSEN, COLTON Marie Ot 682.7 05/24/2015 EMIGDIO HANSEN, COLTON Marie Ot 707.15 05/24/2015 EMIGDIO HANSEN, COLTON Marie Ot 735.4 05/24/2015 EMIGDIO HANSEN, COLTON Marie Ot V49.72 06/28/2015 JUDIE HANSEN, BRENTON R Ot 730.20 08/04/2015 JUDIE HANSEN, BRENTON R Ot 730.20 08/13/2015 ASHLEE SANTO DO Ot 724.02 02/28/2016 BRENTON DIMAS MD Ot B95.8 UNSP STAPHYLOCOCCUS THE CAUSE OF DISE 02/28/2016 BRENTON DIMAS MD Ot L08.9 LOCAL INFECTION OF THE SKIN AND SUBCUTAN 05/31/2016 Ot I82.409 ACUTE EMBOLISM AND THOMBOS UNSP DEEP VN 05/31/2016 Ot R60.9 EDEMA, UNSPECIFIED 05/31/2016 BRENTON DIMAS MD Ot B95.8 UNSP STAPHYLOCOCCUS THE CAUSE OF DISE 05/31/2016 BRENTON DIMAS MD Ot L08.9 LOCAL INFECTION OF THE SKIN AND SUBCUTAN 06/02/2016 ROSA MARIA PRADO MD Ot E11.9 TYPE 2 DIABETES MELLITUS WITHOUT COMPLIC 06/02/2016 ROSA MARIA PRADO MD Ot E78.5 HYPERLIPIDEMIA, UNSPECIFIED 06/02/2016 ROSA MARIA PRADO MD Ot E86.0 DEHYDRATION 06/02/2016 ROSA MARIA PRADO MD Ot M79.1 MYALGIA 06/02/2016 ROSA MARIA PRADO MD Ot N28.9 DISORDER OF KIDNEY AND URETER, UNSPECIFI 06/02/2016 ROSA MARIA PRADO MD Ot R19.7 DIARRHEA, UNSPECIFIED 06/02/2016 ROSA MARIA PRADO MD Ot R53.1 WEAKNESS 06/02/2016 ROSA MARIA PRADO MD Ot T67.5XXA HEAT EXHAUSTION, UNSPECIFIED, INITIAL EN 06/02/2016 ROSA MARIA PRADO MD Ot X30.XXXA EXPOSURE TO EXCESSIVE NATURAL HEAT, INIT 06/02/2016 ROSA MARIA PRADO MD Ot Y99.0 CIVILIAN ACTIVITY DONE FOR INCOME OR PAY 06/02/2016 ROSA MARIA PRADO MD Ot Z79.4 INFORMATION ASSISTANT (CURRENT) USE OF INSULIN 07/19/2016 MISAEL MAY [facility] Ot M54.5 LOW BACK PAIN 10/05/2016 JAJA AVITIA APRN Ot E11.9 TYPE 2 DIABETES MELLITUS WITHOUT COMPLIC 10/05/2016 JAJA AVITIA APRN Ot I10 ESSENTIAL (PRIMARY) HYPERTENSION 10/05/2016 JAJA AVITIA APRN Ot S90.31XA CONTUSION OF RIGHT FOOT, INITIAL ENCOUNT 10/05/2016 JAJA AVITIA APRN Ot S99.921A UNSPECIFIED INJURY OF RIGHT FOOT, INITIA 10/05/2016 JAJA AVITIA APRN Ot W20.8XXA OTH CAUSE OF STRIKE BY THROWN, PROJECTED 10/05/2016 JAJA AVITIA APRN Ot Y92.[address] [facility] [address] IN [facility] NON-INSTITUT ( PRIVATE 10/05/2016 JAJA AVITIA APRN Ot Y93.89 ACTIVITY, OTHER SPECIFIED 10/05/2016 JAJA AVITIA APRN Ot Y99.8 OTHER EXTERNAL CAUSE STATUS 10/05/2016 JAJA AVITIA APRN Ot Z79.4 INFORMATION ASSISTANT (CURRENT) USE OF INSULIN 10/05/2016 JAJA AVITIA APRN Ot Z79.899 OTHER INTERMEDIATE (CURRENT) DRUG THERAPY 10/05/2016 JAJA AVITIA APRN Ot Z87.39 PERSONAL HISTORY OF DISEASES OF THE MS S 10/05/2016 JAJA AVITIA APRN Ot Z89.421 ACQUIRED ABSENCE OF OTHER RIGHT TOE(S) 10/05/2016 Ot I82.409 ACUTE EMBOLISM AND THOMBOS UNSP DEEP VN 10/05/2016 Ot R60.9 EDEMA, UNSPECIFIED 10/05/2016 BRENTON DIMAS MD Ot B95.8 UNSP STAPHYLOCOCCUS THE CAUSE OF DISE 10/05/2016 BRENTON DIMAS MD Ot L08.9 LOCAL INFECTION OF THE SKIN AND SUBCUTAN 10/05/2016 MISAEL MAYP Ot M54.5 LOW BACK PAIN 10/25/2016 Ot I82.409 ACUTE EMBOLISM AND THOMBOS UNSP DEEP VN 10/25/2016 Ot R60.9 EDEMA, UNSPECIFIED 10/25/2016 BRENTON DIMAS MD Ot B95.8 UNSP STAPHYLOCOCCUS THE CAUSE OF DISE 10/25/2016 BRENTON DIMAS MD Ot L08.9 LOCAL INFECTION OF THE SKIN AND SUBCUTAN 10/25/2016 MISAEL MAY [facility] Ot M54.5 LOW BACK PAIN 10/25/2016 MISAEL MAY [facility] Ot E11.622 TYPE 2 DIABETES MELLITUS WITH OTHER SKIN 10/25/2016 MISAEL MAY [employer] Ot L97.529 NON-PRESSURE CHRONIC ULCER OTH PRT LEFT 10/25/2016 MARIANNE RUIZ INTELLIGENCE OFFICER Ot E10.621 TYPE 1 DIABETES MELLITUS WITH FOOT ULCER 10/25/2016 MARIANNE RUIZ INTELLIGENCE OFFICER Ot L97.529 NON-PRESSURE CHRONIC ULCER OTH PRT LEFT 01/30/2017 ROSA MARIA PRADO MD Ot E11.9 TYPE 2 DIABETES MELLITUS WITHOUT COMPLIC 01/30/2017 ROSA MARIA PRADO MD Ot E78.5 HYPERLIPIDEMIA, UNSPECIFIED 01/30/2017 ROSA MARIA PRADO MD Ot G93.40 ENCEPHALOPATHY, UNSPECIFIED 01/30/2017 ROSA MARIA PRADO MD Ot I10 ESSENTIAL (PRIMARY) HYPERTENSION 01/30/2017 ROSA MARIA PRADO MD Ot R29.898 OTH SYMPTOMS AND SIGNS INVOLVING THE MUS 01/30/2017 ROSA MARIA PRADO MD Ot Z79.4 INTERMEDIATE (CURRENT) USE OF INSULIN 01/30/2017 ROSA MARIA PRADO MD Ot Z91.14 PATIENT'S OTHER NONCOMPLIANCE WITH MEDIC 01/31/2017 ROSA MARIA PRADO MD Ot E11.9 TYPE 2 DIABETES MELLITUS WITHOUT COMPLIC 01/31/2017 ROSA MARIA PRADO MD Ot E78.5 HYPERLIPIDEMIA, UNSPECIFIED 01/31/2017 ROSA MARIA PRADO MD Ot G93.40 ENCEPHALOPATHY, UNSPECIFIED 01/31/2017 ROSA MARIA PRADO MD Ot I10 ESSENTIAL (PRIMARY) HYPERTENSION 01/31/2017 ROSA MARIA PRADO MD Ot R29.898 OTH SYMPTOMS AND SIGNS INVOLVING THE MUS 01/31/2017 ROSA MARIA PRADO MD Ot Z79.4 INFORMATION ASSISTANT (CURRENT) USE OF INSULIN 01/31/2017 ROSA MARIA PRADO MD, Ot Z91.14 PATIENT'S OTHER NONCOMPLIANCE WITH MEDIC 01/31/2017 ROSA MARIA PRADO MD Ot E11.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 AN 01/31/2017 ROSA MARIA PRADO MD Ot E11.65 TYPE 2 DIABETES MELLITUS WITH HYPERGLYCE 01/31/2017 ROSA MARIA PRADO MD, Ot E78.5 HYPERLIPIDEMIA, UNSPECIFIED 01/31/2017 ROSA MARIA PRADO MD, Ot G93.40 ENCEPHALOPATHY, UNSPECIFIED 01/31/2017 ROSA MARIA PRADO MD Ot I10 ESSENTIAL (PRIMARY) HYPERTENSION 01/31/2017 ROSA MARIA PRADO MD Ot R29.898 OTH SYMPTOMS AND SIGNS INVOLVING THE MUS 01/31/2017 ROSA MARIA PRADO MD, Ot Z79.4 INTERMEDIATE (CURRENT) USE OF INSULIN 01/31/2017 ROSA MARIA PRADO MD, Ot Z91.14 PATIENT'S OTHER NONCOMPLIANCE WITH MEDIC Procedures Code Description Performed By Performed On [id number] DRAINAGE OF SPINAL CANAL, PERCUTANEOUS A 01/29/2017 Results Test Result Range Capillary blood glucose measurement by glucometer (mass/volume) - 06/01/16 15: 49 Capillary blood glucose measurement by glucometer (mass/volume) 163 mg/dL 70-110 Clostridium difficile detection - 06/01/16 18:36 C DIFF MOLECULAR RESULT Negative for toxigenic C diff by DNA amplification NRG Capillary blood glucose measurement by glucometer (mass/volume) - 06/01/16 22: 14 Capillary blood glucose measurement by glucometer (mass/volume) 111 mg/dL 70-110 Capillary blood glucose measurement by glucometer (mass/volume) - 06/02/16 05: 40 Capillary blood glucose measurement by glucometer (mass/volume) 124 mg/dL 70-110 Capillary blood glucose measurement by glucometer (mass/volume) - 06/02/16 11: 21 Capillary blood glucose measurement by glucometer (mass/volume) 139 mg/dL 70-110 Capillary blood glucose measurement by glucometer (mass/volume) - 06/02/16 15: 34 Capillary blood glucose measurement by glucometer (mass/volume) 147 mg/dL 70-110 PT panel in platelet poor plasma by coagulation assay - 01/29/17 13:55 Prothrombin time (PT) in platelet poor plasma by coagulation assay 12.7 s 12.2-14.7 INR in platelet poor plasma or blood by coagulation assay 1.0 0.8-1.4 Activated partial thromboplastin time (aPTT) in platelet poor plasma bycoagulation assay - 01/29/17 13:55 Activated partial thromboplastin time (aPTT) in platelet poor plasma bycoagulation assay 28 s 24-35 Fibrin D-dimer FEU measurement in platelet poor plasma (mass/volume) - 13:55 Fibrin D-dimer FEU measurement in platelet poor plasma (mass/volume) 0.43 ug/mL 0.00-0.49 Tick identification panel - 01/29/17 13:55 Serum Ehrlichia chaffeensis IgG antibody detection <1:16 <1:16 Serum Ehrlichia chaffeensis IgM antibody detection <1:10 <1:10 Serum Rickettsia rickettsii IgG antibody assay (units/volume) < <1:16 [place] spotted fever panel < <1: 10 Francisella tularensis antibody assay <1:20 NR Borrelia burgdorferi (Lyme disease) antibody 0.27 0.00-0.90 Capillary blood glucose measurement by glucometer (mass/volume) - 01/29/17 15: 49 Capillary blood glucose measurement by glucometer (mass/volume) 235 mg/dL 70-110 Automated blood complete blood count (hemogram) panel - 01/29/17 15:55 Blood leukocytes automated count (number/volume) 6.4 10*3/ uL 4.3-11.0 Blood erythrocytes automated count (number/volume) 5.56 10*6 /uL 4.35-5.85 Venous blood hemoglobin measurement (mass/volume) 16.6 g/dL 13.3-17.7 Blood hematocrit (volume fraction) 46 % 40-54 Automated erythrocyte mean corpuscular volume 82 [foz_us] 80-99 Automated erythrocyte mean corpuscular hemoglobin (mass per erythrocyte) 30 pg 25-34 Automated erythrocyte mean corpuscular hemoglobin concentration measurement ( mass/volume) 37 g/dL 32-36 Automated erythrocyte distribution width ratio 12.9 % 10.0-14.5 Automated blood platelet count (count/volume) 148 10*3/uL 130-400 Automated blood platelet mean volume measurement 11.1 [foz_ us] 7.4-10.4 Whole blood basic metabolic panel - 01/29/17 15:55 Serum or plasma sodium measurement (moles/volume) 135 mmol/ L 135-145 Serum or plasma potassium measurement (moles/volume) 4.1 mmol/L 3.6-5.0 Serum or plasma chloride measurement (moles/volume) 102 mmol /L 98-107 Carbon dioxide 23 mmol/L 21-32 Serum or plasma anion gap determination (moles/volume) 10 mmol/L 5-14 Serum or plasma urea nitrogen measurement (mass/volume) 15 mg/dL 7-18 Serum or plasma creatinine measurement (mass/volume) 1.01 mg /dL 0.60-1.30 Serum or plasma urea nitrogen/creatinine mass ratio 15 NRG Serum or plasma creatinine measurement with calculation of estimated glomerular filtration rate > NRG Serum or plasma glucose measurement (mass/volume) 252 mg/dL 70-105 Serum or plasma calcium measurement (mass/volume) 9.0 mg/dL 8.5-10.1 Hemoglobin A1c - 01/29/17 15:55 Hemoglobin A1c 10.7 % 4.5-6.2 Complete urinalysis with reflex to culture - 01/29/17 17:10 Urine color determination YELLOW NRG Urine clarity determination CLEAR NRG Urine pH measurement by test strip 7 5- 9 Specific gravity of urine by test strip 1.005 1.016-1.022 Urine protein assay by test strip, semi-quantitative 1+ NEGATIVE Urine glucose detection by automated test strip 4+ NEGATIVE Erythrocytes detection in urine sediment by light microscopy NEGATIVE NEGATIVE Urine ketones detection by automated test strip 3+ NEGATIVE Urine nitrite detection by test strip NEGATIVE NEGATIVE Urine total bilirubin detection by test strip NEGATIVE NEGATIVE Urine urobilinogen measurement by automated test strip (mass/volume) NORMAL NORMAL Urine leukocyte esterase detection by dipstick NEGATIVE NEGATIVE Automated urine sediment erythrocyte count by microscopy (number/high power field) RARE NRG Automated urine sediment leukocyte count by microscopy (number/high power field ) NONE NRG Bacteria detection in urine sediment by light microscopy NONE NRG Crystals detection in urine sediment by light microscopy NONE NRG Casts detection in urine sediment by light microscopy NONE NRG Mucus detection in urine sediment by light microscopy NEGATIVE NRG Complete urinalysis with reflex to culture NO NRG Capillary blood glucose measurement by glucometer (mass/volume) - 01/29/17 18: 21 Capillary blood glucose measurement by glucometer (mass/volume) 192 mg/dL 70-110 Whole blood basic metabolic panel - 01/29/17 18:35 Serum or plasma sodium measurement (moles/volume) 137 mmol/ L 135-145 Serum or plasma potassium measurement (moles/volume) 3.7 mmol/L 3.6-5.0 Serum or plasma chloride measurement (moles/volume) 104 mmol /L 98-107 Carbon dioxide 24 mmol/L 21-32 Serum or plasma anion gap determination (moles/volume) 9 mmol/L 5-14 Serum or plasma urea nitrogen measurement (mass/volume) 14 mg/dL 7-18 Serum or plasma creatinine measurement (mass/volume) 1.00 mg /dL 0.60-1.30 Serum or plasma urea nitrogen/creatinine mass ratio 14 NRG Serum or plasma creatinine measurement with calculation of estimated glomerular filtration rate > NRG Serum or plasma glucose measurement (mass/volume) 201 mg/dL 70-105 Serum or plasma calcium measurement (mass/volume) 8.6 mg/dL 8.5-10.1 Liver function panel (serum or plasma alk phos, alb, total and direct bili, total protein, ALT, AST) - 01/29/17 18:35 Serum or plasma total bilirubin measurement (mass/volume) 1.4 mg/dL 0.1-1.0 Serum or plasma alkaline phosphatase measurement (enzymatic activity/volume) 74 U/L 40-136 Serum or plasma aspartate aminotransferase measurement (enzymatic activity/ volume) 16 U/L 5-34 Serum or plasma alanine aminotransferase measurement (enzymatic activity/volume ) 18 U/L 0-55 Serum or plasma protein measurement (mass/volume) 6.9 g/dL 6.4-8.2 Serum or plasma albumin measurement (mass/volume) 3.7 g/dL 3.2-4.5 Bilirubin direct 0.3 mg/dL 0.0-0.3 Serum or plasma indirect bilirubin measurement (mass/volume) 1.1 mg/dL NRG Serum or plasma phosphate measurement (mass/volume) - 01/29/17 18:35 Serum or plasma phosphate measurement (mass/volume) 1.3 mg/ dL 2.3-4.7 Magnesium - 01/29/17 18:35 Magnesium 1.8 mg/dL 1.8-2.4 THYROID STIMULATING HORMONE - 01/29/17 18:35 THYROID STIMULATING HORMONE 1.11 u[iU]/mL 0.35-4.94 Serum or plasma thyroxine (T4) free measurement (mass/volume) - 01/29/17 18:35 Serum or plasma thyroxine (T4) free measurement (mass/volume) 1.02 ng/dL 0.70-1.48 Bacterial blood culture - 01/29/17 18:35 Bacterial blood culture NG NRG Bacterial blood culture - 01/29/17 18:42 Bacterial blood culture NG NRG Cerebrospinal fluid cell count - 01/29/17 19:51 Cerebrospinal fluid appearance description CLEAR NRG Cerebrospinal fluid color identification COLORLESS NRG Cerebrospinal fluid leukocytes count (number/volume) 0 % 0-5 Cerebrospinal fluid erythrocytes count (number/volume) 0 % 0-0 Manual cerebrospinal fluid lymphocytes/100 leukocytes TNP NRG Manual cerebrospinal fluid mononuclear cells/100 leukocytes TNP NRG Manual cerebrospinal fluid polymorphonuclear cells/100 leukocytes TNP NR Cerebrospinal fluid cell count on specimen from last tube collected 4 NRG Cerebrospinal fluid glucose measurement (mass/volume) - 01/29/17 19:51 Cerebrospinal fluid glucose measurement (mass/volume) 138 mg /dL 50-80 Cerebrospinal fluid protein measurement (mass/volume) - 01/29/17 19:51 Cerebrospinal fluid protein measurement (mass/volume) 74 mg/ dL 15-40 Gram stain microscopy - 01/29/17 19:51 Gram stain microscopy Called to Julienne in ICU 01/29/17 21:25 by Canelo Manzanares NRG Bacterial cerebrospinal fluid culture - 01/29/17 19:51 Bacterial cerebrospinal fluid culture NG NRG Virus identification by culture - 01/29/17 19:51 Virus identification by culture FOOTNOTE NRG Blood lactic acid measurement (moles/volume) - 01/29/17 19:54 Blood lactic acid measurement (moles/volume) 1.67 mmol/L 0.50-2.00 Whole blood basic metabolic panel - 01/29/17 19:54 Serum or plasma sodium measurement (moles/volume) 137 mmol/ L 135-145 Serum or plasma potassium measurement (moles/volume) 3.8 mmol/L 3.6-5.0 Serum or plasma chloride measurement (moles/volume) 103 mmol /L 98-107 Carbon dioxide 24 mmol/L 21-32 Serum or plasma anion gap determination (moles/volume) 10 mmol/L 5-14 Serum or plasma urea nitrogen measurement (mass/volume) 14 mg/dL 7-18 Serum or plasma creatinine measurement (mass/volume) 1.01 mg /dL 0.60-1.30 Serum or plasma urea nitrogen/creatinine mass ratio 14 NRG Serum or plasma creatinine measurement with calculation of estimated glomerular filtration rate > NRG Serum or plasma glucose measurement (mass/volume) 181 mg/dL 70-105 Serum or plasma calcium measurement (mass/volume) 8.8 mg/dL 8.5-10.1 Capillary blood glucose measurement by glucometer (mass/volume) - 01/29/17 23: 56 Capillary blood glucose measurement by glucometer (mass/volume) 152 mg/dL 70-110 Complete blood count (CBC) with automated white blood cell (WBC) differential - 01/30/17 03:40 Blood leukocytes automated count (number/volume) 7.2 10*3/ uL 4.3-11.0 Blood erythrocytes automated count (number/volume) 5.16 10*6 /uL 4.35-5.85 Venous blood hemoglobin measurement (mass/volume) 15.6 g/dL 13.3-17.7 Blood hematocrit (volume fraction) 43 % 40-54 Automated erythrocyte mean corpuscular volume 83 [foz_us] 80-99 Automated erythrocyte mean corpuscular hemoglobin (mass per erythrocyte) 30 pg 25-34 Automated erythrocyte mean corpuscular hemoglobin concentration measurement ( mass/volume) 36 g/dL 32-36 Automated erythrocyte distribution width ratio 13.1 % 10.0-14.5 Automated blood platelet count (count/volume) 144 10*3/uL 130-400 Automated blood platelet mean volume measurement 10.5 [foz_ us] 7.4-10.4 Automated blood neutrophils/100 leukocytes 56 % 42-75 Automated blood lymphocytes/100 leukocytes 35 % 12-44 Blood monocytes/100 leukocytes 8 % 0-12 Automated blood eosinophils/100 leukocytes 1 % 0-10 Automated blood basophils/100 leukocytes 0 % 0-10 Blood neutrophils automated count (number/volume) 4.0 10*3 1.8-7.8 Blood lymphocytes automated count (number/volume) 2.5 10*3 1.0-4.0 Blood monocytes automated count (number/volume) 0.6 10*3 0.0-1.0 Automated eosinophil count 0.1 10*3/uL 0.0-0.3 Automated blood basophil count (count/volume) 0.0 10*3/uL 0.0-0.1 Comprehensive metabolic panel - 01/30/17 03:40 Serum or plasma sodium measurement (moles/volume) 138 mmol/ L 135-145 Serum or plasma potassium measurement (moles/volume) 3.8 mmol/L 3.6-5.0 Serum or plasma chloride measurement (moles/volume) 107 mmol /L 98-107 Carbon dioxide 20 mmol/L 21-32 Serum or plasma anion gap determination (moles/volume) 11 mmol/L 5-14 Serum or plasma urea nitrogen measurement (mass/volume) 14 mg/dL 7-18 Serum or plasma creatinine measurement (mass/volume) 0.98 mg /dL 0.60-1.30 Serum or plasma urea nitrogen/creatinine mass ratio 14 NRG Serum or plasma creatinine measurement with calculation of estimated glomerular filtration rate > NRG Serum or plasma glucose measurement (mass/volume) 168 mg/dL 70-105 Serum or plasma calcium measurement (mass/volume) 8.2 mg/dL 8.5-10.1 Serum or plasma total bilirubin measurement (mass/volume) 1.2 mg/dL 0.1-1.0 Serum or plasma alkaline phosphatase measurement (enzymatic activity/volume) 63 U/L 40-136 Serum or plasma aspartate aminotransferase measurement (enzymatic activity/ volume) 18 U/L 5-34 Serum or plasma alanine aminotransferase measurement (enzymatic activity/volume ) 17 U/L 0-55 Serum or plasma protein measurement (mass/volume) 6.2 g/dL 6.4-8.2 Serum or plasma albumin measurement (mass/volume) 3.3 g/dL 3.2-4.5 Serum or plasma phosphate measurement (mass/volume) - 01/30/17 03:40 Serum or plasma phosphate measurement (mass/volume) 2.8 mg/ dL 2.3-4.7 Magnesium - 01/30/17 03:40 Magnesium 1.9 mg/dL 1.8-2.4 Lipid 1996 panel - 01/30/17 03:40 Serum or plasma triglyceride measurement (mass/volume) 493 mg/dL <150 Serum or plasma cholesterol measurement (mass/volume) 290 mg /dL < 200 Serum or plasma cholesterol in HDL measurement (mass/volume) 34 mg/dL 40-60 Cholesterol in LDL [mass/volume] in serum or plasma by direct assay 138 mg/dL 1-129 Serum or plasma cholesterol in VLDL measurement (mass/volume) 99 mg/dL 5-40 Capillary blood glucose measurement by glucometer (mass/volume) - 01/30/17 15: 55 Capillary blood glucose measurement by glucometer (mass/volume) 220 mg/dL 70-110 Capillary blood glucose measurement by glucometer (mass/volume) - 01/30/17 21: 01 Capillary blood glucose measurement by glucometer (mass/volume) 167 mg/dL 70-110 Complete blood count (CBC) with automated white blood cell (WBC) differential - 01/31/17 04:10 Blood leukocytes automated count (number/volume) 5.8 10*3/ uL 4.3-11.0 Blood erythrocytes automated count (number/volume) 4.56 10*6 /uL 4.35-5.85 Venous blood hemoglobin measurement (mass/volume) 13.6 g/dL 13.3-17.7 Blood hematocrit (volume fraction) 39 % 40-54 Automated erythrocyte mean corpuscular volume 86 [foz_us] 80-99 Automated erythrocyte mean corpuscular hemoglobin (mass per erythrocyte) 30 pg 25-34 Automated erythrocyte mean corpuscular hemoglobin concentration measurement ( mass/volume) 35 g/dL 32-36 Automated erythrocyte distribution width ratio 13.4 % 10.0-14.5 Automated blood platelet count (count/volume) 124 10*3/uL 130-400 Automated blood platelet mean volume measurement 10.8 [foz_ us] 7.4-10.4 Automated blood neutrophils/100 leukocytes 55 % 42-75 Automated blood lymphocytes/100 leukocytes 32 % 12-44 Blood monocytes/100 leukocytes 12 % 0-12 Automated blood eosinophils/100 leukocytes 1 % 0-10 Automated blood basophils/100 leukocytes 0 % 0-10 Blood neutrophils automated count (number/volume) 3.2 10*3 1.8-7.8 Blood lymphocytes automated count (number/volume) 1.8 10*3 1.0-4.0 Blood monocytes automated count (number/volume) 0.7 10*3 0.0-1.0 Automated eosinophil count 0.1 10*3/uL 0.0-0.3 Automated blood basophil count (count/volume) 0.0 10*3/uL 0.0-0.1 Whole blood basic metabolic panel - 01/31/17 04:10 Serum or plasma sodium measurement (moles/volume) 140 mmol/ L 135-145 Serum or plasma potassium measurement (moles/volume) 3.4 mmol/L 3.6-5.0 Serum or plasma chloride measurement (moles/volume) 110 mmol /L 98-107 Carbon dioxide 22 mmol/L 21-32 Serum or plasma anion gap determination (moles/volume) 8 mmol/L 5-14 Serum or plasma urea nitrogen measurement (mass/volume) 18 mg/dL 7-18 Serum or plasma creatinine measurement (mass/volume) 1.76 mg /dL 0.60-1.30 Serum or plasma urea nitrogen/creatinine mass ratio 10 NRG Serum or plasma creatinine measurement with calculation of estimated glomerular filtration rate 41 NRG Serum or plasma glucose measurement (mass/volume) 170 mg/dL 70-105 Serum or plasma calcium measurement (mass/volume) 7.5 mg/dL 8.5-10.1 Serum or plasma phosphate measurement (mass/volume) - 01/31/17 04:10 Serum or plasma phosphate measurement (mass/volume) 2.7 mg/ dL 2.3-4.7 Magnesium - 01/31/17 04:10 Magnesium 1.7 mg/dL 1.8-2.4 Vancomycin trough - 01/31/17 07:20 Vancomycin trough 25.4 ug/mL 10.0-20.0 Capillary blood glucose measurement by glucometer (mass/volume) - 01/31/17 10: 40 Capillary blood glucose measurement by glucometer (mass/volume) 139 mg/dL 70-110 Capillary blood glucose measurement by glucometer (mass/volume) - 01/31/17 15: 56 Capillary blood glucose measurement by glucometer (mass/volume) 204 mg/dL 70-110 Encounters ACCT No. Visit Date/Time Discharge Status Pt. Type Provider Facility Loc./Unit Complaint [id number] 01/29/2017 14:30:00 2016 16:15:00 DIS Inpatient ROSA MARIA PRADO MD [facility] 4TH POSSIBLE DKA, CONFUSION [id number] 10/12/2016 11:53:00 2015 16:00:00 DIS Outpatient MARIANNE RIUZ APRN [facility] WOUNDCARE [id number] 10/05/2016 18:46:00 2015 20:18:00 DIS Emergency AVITIAJAJA APRN [facility] ER RT FOOT PAIN [id number] 05/31/2016 19:46:00 2015 16:10:00 DIS Inpatient ROSA MARIA PRADO MD [facility] 4TH DEHYDRATION;ACUTE RENAL FAILURE;HEAT EXHAUSTION [id number] 12/06/2015 08:37:00 2015 00:01:00 DIS Outpatient BRENTON DIMAS MD [facility] SDC STAFF INFECTION R LOWER EXTREMITY [id number] 06/03/2015 08:20:00 2014 00:01:00 DIS Outpatient BRENTON DIMAS MD [facility] SURG RCR [id number] 08/03/2015 16:31:00 2014 23:59:59 CLS Outpatient ASHLEE SANTO DO [facility] RAD [id number] 05/10/2015 14:01:00 2014 09:17:00 DIS Outpatient COLTON BEAL MD [facility] WOUNDCARE [id number] 05/10/2015 17:52:00 2014 18:12:00 DIS Inpatient BRENTON DIMAS MD [facility] SURGICAL [id number] 04/30/2015 10:44:00 2014 23:59:59 CLS Outpatient COLTON BEAL MD [facility] LAB [id number] 04/23/2015 13:12:00 2014 16:22:00 DIS Inpatient BRENTON DIMAS MD [facility] SURGICAL [id number] 02/02/2015 09:30:00 2014 23:59:59 CLS Preadmit BLAJOBY REYES DPM [facility] [id number] 01/30/2015 08:30:00 2014 20:08:00 DIS Inpatient BLANCHO DPMJOBY [facility] SURGICAL [id number] 01/28/2015 13:58:00 2014 23:59:59 CLS Outpatient BLANCHO DPMJOBY [facility] RAD [id number] 01/28/2015 13:42:00 2014 23:59:59 CLS Outpatient BLANCHO DPMJOBY [facility] PREOP [id number] 11/30/2014 12:14:00 2014 16:17:00 DIS Inpatient BLANCHO DPMJOBY [facility] SURGICAL [id number] 10/09/2014 00:09:00 2013 23:59:59 CLS Preadmit BRENTON DIMAS MD [facility] SURG RCR [id number] 07/13/2014 22:17:00 2013 00:01:00 DIS Outpatient BRENTON DIMAS MD [facility] SURG RCR [id number] 07/14/2014 10:17:00 2013 16:25:00 DIS Outpatient BLANCHO DPMJOBY [facility] SD [id number] 07/08/2014 10:47:00 2013 23:59:59 CLS Outpatient BLANCHO DPMJOBY [facility] PREOP [id number] 05/06/2014 09:33:00 2013 23:59:59 CLS Outpatient JONH MARIA MD [facility] CARD [id number] 04/02/2014 15:17:00 2013 10:10:00 DIS Inpatient BRENTON DIMAS MD [facility] 4TH [id number] 01/23/2014 10:30:00 2013 23:59:59 CLS Outpatient BRENTON DIMAS MD [facility] LAB [id number] 11/09/2013 07:36:00 2013 10:14:00 DIS Emergency JOHAN HANSEN, JAMES Rivero [facility] ER [id number] 11/05/2013 05:40:00 2013 23:59:59 CLS Outpatient BRENTON DIMAS MD [facility] SURG RCR [id number] 10/27/2013 00:55:00 2012 11:48:00 DIS Inpatient BRENTON DIMAS MD [facility] 4TH [id number] 10/10/2013 10:03:00 2012 16:38:00 DIS Outpatient BLANCHO JOBY ORTEZ [facility] [id number] 10/03/2013 09:36:00 2012 23:59:59 CLS Outpatient DREWHO JOBY ORTEZ [facility] PREOP [id number] 07/22/2013 00:01:00 2012 11:22:00 DIS Inpatient BRENTON DIMAS MD [facility] SURGICAL [id number] 06/25/2013 07:48:00 2012 23:59:59 CLS Outpatient EMA CABRERA MD [facility] RAD [id number] 10/12/2016 09:54:00 ACT Outpatient MISAEL MAY [facility] RAD LT FOOT PAIN,INJURY LT FOOT,DIABETIC FOOT ULCER [id number] 07/18/2016 12:18:00 ACT Outpatient MISAEL MAY [facility] RAD LOW BACK PAIN [id number] 02/29/2016 00:09:00 PEN Preadmit BRENTON DIMAS MD [facility] STAFF INFECTION R LOWER EXTREMITY [id number] 11/25/2015 13:26:00 Document Registration [id number] 11/30/2014 12:15:00 Document Registration [id number] 01/29/2014 00:00:00 Document Registration [id number] 01/20/2013 09:43:00 Document Registration [id number] 01/02/2013 07:53:00 Document Registration [id number] 01/01/2013 09:27:00 Document Registration [id number] 01/01/2013 07:41:00 Document Registration [id number] 12/30/2012 08:49:00 Document Registration [id number] 09/18/2012 16:45:00 Document Registration [id number] 05/13/2012 10:42:00 Document Registration [id number] 04/18/2012 18:48:00 Document Registration [id number] 04/18/2012 13:38:00 Document Registration [id number] 02/28/2012 07:35:00 Document Registration [id number] 02/14/2012 17:33:00 Document Registration [id number] 02/13/2012 07:38:00 Document Registration [id number] 01/03/2012 19:25:00 Document Registration [id number] 12/24/2011 23:50:00 Document Registration [id number] 12/24/2011 09:03:00 Document Registration [id number] 12/18/2011 14:02:00 Document Registration [id number] 12/18/2011 09:06:00 Document Registration [id number] 12/15/2011 08:27:00 Document Registration [id number] 11/29/2011 08:30:00 Document Registration [id number] 11/27/2011 21:35:00 Document Registration [id number] 11/23/2011 16:00:00 Document Registration [id number] 11/13/2011 09:28:00 Document Registration [id number] 11/07/2011 11:27:00 Document Registration [id number] 10/30/2011 13:00:00 Document Registration [id number] 08/15/2011 13:20:00 Document Registration [id number] 08/01/2011 14:08:00 Document Registration [id number] 12/27/2010 11:12:00 Document Registration [id number] 05/01/2010 11:08:00 Document Registration [id number] 09/16/2009 07:07:00 Document Registration [id number] 07/23/2009 09:19:00 Document Registration
== END 2017-01-31 16:15 | disposition home or self-care (01) | DRG 72 ==
LOC: DELPENDDIS → ICU 14:30 → 4TH 01-30 12:30
PROVIDERS: ADMIT Family Medicine; ATTEND Family Medicine
PROC: 009U3ZX Drainage of Spinal Canal, Percutaneous Approach, Diagnostic (ICD-10-PCS; principal; 2017-01-29)
DX: G93.40 Encephalopathy, unspecified (principal); E11.65 Type 2 diabetes mellitus with hyperglycemia; E11.51 Type 2 diabetes mellitus with diabetic peripheral angiopathy without gangrene; R29.898 Other symptoms and signs involving the musculoskeletal system; I10 Essential (primary) hypertension; E78.5 Hyperlipidemia, unspecified; Z91.14 Patient's other noncompliance with medication regimen; Z79.4 Long term (current) use of insulin
CPT/HCPCS: 36415; 70450; 70553; 71010; 74176; 80048; 80053; 80061; 80076; 80202; 81000; 82945; 82962; 83036; 83605; 83735; 84100; 84157; 84439; 84443; 85025; 85027; 85379; 85610; 85730; 86618; 86666; 86668; 86757; 87040; 87070; 87205; 87252; 89051; 93880

== ENCOUNTER 2017-05-10 09:49 | Outpatient (CLI) | payer OTHER ==
[~2017-05-10] VITALS: Ht 188 cm; Wt 112.2 kg
[~2017-05-10 09:49] MED LIST changes: +ACET325T49 PO; +ACYC400T PO; +ATOR40TA PO; +CLON1TAB3 PO; +CLOP75TA69 PO; +DOXY100T2 PO; +LISI10TA2 PO; +[UNRECOGNIZED DRUG - CODE] MC
[2017-05-10] MEDS ORDERED: INSU300I SQ (10:05)
[2017-05-10] MEDS ORDERED: LOSA25TA21 PO (10:05)
[2017-05-10 10:12] VITALS: BP 132/91
== END 2017-05-10 12:11 | disposition home or self-care (01) ==
LOC: PREOP 09:49
PROVIDERS: ATTEND Podiatrist
DX: Z01.818 Encounter for other preprocedural examination (principal); Z11.2 Encounter for screening for other bacterial diseases; M21.611 Bunion of right foot
CPT/HCPCS: 87081

== ENCOUNTER 2017-05-30 06:52 | Day surgery (SDC) | payer OTHER ==
[~2017-05-30] VITALS: Ht 188 cm; Wt 112.2 kg
[~2017-05-30 06:52] MED LIST changes: +LOSA25TA21 PO
[2017-05-30 07:00] VITALS: BP 131/82
--- NOTE | 2017-05-30 07:42 | Progress Note-Pre Operative ---
Pre-Operative Progress Note H&P Reviewed The H&P was reviewed, patient examined and no changes noted. Date Seen by Provider: May 30, 2017 Time Seen by Provider: 07:41 Date H&P Reviewed: May 30, 2017 Time H&P Reviewed: 07:41 Pre-Operative Diagnosis: Bunion Right Foot JOBY BAKER DPM May 30, 2017 07:42
[2017-05-30] MEDS ORDERED: ceFAZolin 2 GM/NS 50 ML IV ONE (07:45)
[2017-05-30] MEDS ORDERED: LACTATED RINGERS 1,000 ML IV PRN (08:16)
[2017-05-30] MEDS ORDERED: inSUlin (REGULAR) HUMAN 1 UNIT/0.01 ML (CHARGE PER UNIT) IV ONE (08:30)
[2017-05-30] MEDS ORDERED: BUPIVACAINE 0.5% 30 ML (SENSORCAINE) VIAL ONE (08:38)
[2017-05-30] MEDS ORDERED: MIDAZOLAM 2 MG/2 ML (VERSED) VIAL ONE (08:40)
[2017-05-30] MEDS ORDERED: LACTATED RINGERS 1,000 ML IV ONE (08:40)
[2017-05-30] MEDS ORDERED: LIDOCAINE PF 2% 5 ML (XYLOCAINE) VIAL ONE (08:40)
[2017-05-30] MEDS ORDERED: fentaNYL INJECTION 100 MCG/2 ML AMP ONE (08:40)
[2017-05-30] MEDS ORDERED: proPOfol 200 MG/20 ML (DIPRIVAN) VIAL IV ONE ×2 (08:40→09:14)
[2017-05-30] MEDS ORDERED: ONDANSETRON 4 MG/2 ML (SDV) Z0FRAN ONE (09:14)
[2017-05-30] MEDS ORDERED: OXYC-201 PO (09:47)
--- NOTE | 2017-05-30 09:49 | Discharge Inst-Surgical ---
Discharge Inst-Surgical Consults/Follow Up Patient Instructions: KEEP DRESSING CLEAN, DRY AND INTACT. WEAR SURGICAL SHOE AT ALL TIMES OF WEIGHT BEARING CALL DR BAKER'S OFFICE FOR FOLLOW UP IN 2 WEEKS. [phone] JOBY BAKER DPM May 30, 2017 09:49
[2017-05-30 10:15] VITALS: BP 102/72
[2017-05-30 10:45] VITALS: BP 113/75
[2017-05-30 11:15] VITALS: BP 123/79
--- NOTE | 2017-06-05 11:39 | OPERATIVE REPORT ---
DATE OF SERVICE: 05/30/2017 SURGEON: JOBY BAKER DPM BRAKE REPAIRER HYDRAULIC: None. PREOPERATIVE DIAGNOSIS: Bunion deformity right foot. POSTOPERATIVE DIAGNOSIS: Bunion deformity right foot. PROCEDURE PERFORMED: Amputation of the right great toe. ANESTHESIA: General anesthesia. HEMOSTASIS: Pneumatic ankle tourniquet at 250 mmHg. BLOOD LOSS: Minimal. MATERIALS USED: Three-0 nylon. INTRAOPERATIVE INJECTABLES: Twenty mL 0.5% Marcaine pain. COMPLICATIONS: None. INDICATIONS FOR THE PROCEDURE: The patient is a 56-year-old male with painful bunion deformity of his right foot. He has exhausted all conservative measures at this time and is requiring surgical intervention. He has signed the consent prior to being taken back to the OR. DESCRIPTION OF THE PROCEDURE: Under mild sedation, the patient was brought to the OR and placed on the operating table in supine position. Following administration of general anesthesia, pneumatic calf tourniquet was placed on the right lower extremity. The right lower extremity was scrubbed, prepped, and draped in the ascetic manner. Proper timeout was performed. Right lower extremity was identified as the surgical site. Next, 2 semielliptical incisions were made circumferencing the great toe at the level of the metatarsophalangeal joint. The dissection was taken down to the level of the joint. The joint was disarticulated. The great toe was passed from the surgical field. All bleeders were cauterized and ligated as necessary. The wound was flushed with copious amounts of sterile saline. The skin was re-approximated and closed with 3-0 nylon. Then, 20 mL 0.5% Marcaine plain were injected in the foot. dry sterile dressing consisted of 4 x 4's, Webril, Feng wrap. The patient tolerated the procedure and anesthesia well. He was transferred from operating room to recovery with vital signs stable, neurovascular status intact to the right lower extremity. Job ID: [id number] DocumentID: [id number] Dictated Date: 05/30/2017 09:52:52 Office Machine Service Supervisor Date: 06/05/2017 11:38:52 Dictated By: JOBY BAKER DPM
== END 2017-05-30 11:15 | disposition home or self-care (01) ==
LOC: SDC 06:52
PROVIDERS: ATTEND Podiatrist
DX: M21.611 Bunion of right foot (principal); F41.9 Anxiety disorder, unspecified; M12.9 Arthropathy, unspecified; E11.9 Type 2 diabetes mellitus without complications; I10 Essential (primary) hypertension; E78.5 Hyperlipidemia, unspecified; Z79.899 Other long term (current) drug therapy; Z86.73 Personal history of transient ischemic attack (TIA), and cerebral infarction without residual deficits
CPT/HCPCS: 82962; 88305

== ENCOUNTER → 2017-06-25 | Outpatient (CLI) | payer OTHER ==
[~2017-06-25] MED LIST changes: +OXYC-201 PO
== END ==
LOC: WOUNDCARE 09:30
PROVIDERS: ATTEND Nurse Practitioner
DX: T81.31XA Disruption of external operation (surgical) wound, not elsewhere classified, initial encounter (principal); E11.621 Type 2 diabetes mellitus with foot ulcer; L97.512 Non-pressure chronic ulcer of other part of right foot with fat layer exposed
CPT/HCPCS: 11042

== ENCOUNTER → 2017-07-05 | Outpatient (CLI) | payer OTHER | LOC: WOUNDCARE 15:48 | PROVIDERS: ATTEND Nurse Practitioner | DX: T81.31XA Disruption of external operation (surgical) wound, not elsewhere classified, initial encounter (principal); E11.621 Type 2 diabetes mellitus with foot ulcer; L97.512 Non-pressure chronic ulcer of other part of right foot with fat layer exposed | CPT/HCPCS: 11042; 87070; 87075; 87205 ==

== ENCOUNTER → 2017-07-10 | Outpatient (CLI) | payer OTHER | LOC: WOUNDCARE 10:51 | PROVIDERS: ATTEND Nurse Practitioner | DX: T81.31XA Disruption of external operation (surgical) wound, not elsewhere classified, initial encounter (principal); L97.512 Non-pressure chronic ulcer of other part of right foot with fat layer exposed; E11.621 Type 2 diabetes mellitus with foot ulcer | CPT/HCPCS: 11042 ==

== ENCOUNTER → 2017-07-17 | Outpatient (CLI) | payer OTHER | LOC: WOUNDCARE 10:38 | PROVIDERS: ATTEND Nurse Practitioner | DX: E11.621 Type 2 diabetes mellitus with foot ulcer (principal); L97.512 Non-pressure chronic ulcer of other part of right foot with fat layer exposed; T81.31XA Disruption of external operation (surgical) wound, not elsewhere classified, initial encounter | CPT/HCPCS: 11042 ==

== ENCOUNTER → 2017-07-24 | Outpatient (CLI) | payer OTHER | LOC: WOUNDCARE 11:21 | PROVIDERS: ATTEND Nurse Practitioner | DX: T81.31XA Disruption of external operation (surgical) wound, not elsewhere classified, initial encounter (principal); L97.512 Non-pressure chronic ulcer of other part of right foot with fat layer exposed; E11.621 Type 2 diabetes mellitus with foot ulcer | CPT/HCPCS: 11042 ==

== ENCOUNTER → 2017-07-31 | Outpatient (CLI) | payer OTHER | LOC: WOUNDCARE 10:42 | PROVIDERS: ATTEND Nurse Practitioner | DX: E11.621 Type 2 diabetes mellitus with foot ulcer (principal); T81.31XA Disruption of external operation (surgical) wound, not elsewhere classified, initial encounter; L97.512 Non-pressure chronic ulcer of other part of right foot with fat layer exposed | CPT/HCPCS: 99212 ==

== ENCOUNTER → 2017-08-04 19:50 | Outpatient (RCR) | payer OTHER ==
[2017-07-11 11:03] LABS: CALCIUM 8.7 MG/DL (8.5-10.1); CREATININE SERUM 1.38 MG/DL (0.60-1.30); POTASSIUM 4.3 MMOL/L (3.6-5.0)
[2017-07-11] MEDS: CATHETER FLUSH 10 ML SYR IV PRN (11:35)
[2017-07-11 12:04] VITALS: BP 144/92
[2017-07-12] MEDS: VANCOMYCIN 1500 MG/NS 500 ML IVPB IV SCH ×4 (08:29→20:35)
[2017-07-12] MEDS: CATHETER FLUSH 10 ML SYR IV PRN ×2 (08:29→20:35)
[2017-07-12 08:43] VITALS: BP 166/99
[2017-07-12 19:30] VITALS: BP 131/78
[2017-07-13] MEDS: CATHETER FLUSH 10 ML SYR IV PRN ×3 (09:14→21:12)
[2017-07-13] MEDS: VANCOMYCIN 1500 MG/NS 500 ML IVPB IV SCH ×4 (09:15→21:12)
[2017-07-13 11:30] VITALS: BP 149/94
[2017-07-13 21:10] VITALS: BP 147/84
[2017-07-14] MEDS: CATHETER FLUSH 10 ML SYR IV PRN ×3 (08:32→20:12)
[2017-07-14] MEDS: VANCOMYCIN 1500 MG/NS 500 ML IVPB IV SCH ×4 (08:32→20:12)
[2017-07-14 10:42] VITALS: BP 147/83
[2017-07-14 22:45] VITALS: BP 124/70
[2017-07-15] MEDS: CATHETER FLUSH 10 ML SYR IV PRN ×2 (08:41→10:42)
[2017-07-15] MEDS: VANCOMYCIN 1500 MG/NS 500 ML IVPB IV SCH ×4 (08:41→19:59)
[2017-07-15 10:45] VITALS: BP 130/86
[2017-07-15 22:33] VITALS: BP 127/93
[2017-07-16] MEDS: CATHETER FLUSH 10 ML SYR IV PRN ×3 (08:20→20:00)
[2017-07-16] MEDS: VANCOMYCIN 1500 MG/NS 500 ML IVPB IV SCH ×4 (08:20→20:00)
[2017-07-16 10:40] VITALS: BP 143/87
[2017-07-16 22:15] VITALS: BP 149/77
[2017-07-17] MEDS: CATHETER FLUSH 10 ML SYR IV PRN ×3 (08:30→19:58)
[2017-07-17] MEDS: VANCOMYCIN 1500 MG/NS 500 ML IVPB IV SCH ×4 (08:30→19:58)
[2017-07-17 09:05] VITALS: BP 136/85
[2017-07-17 19:55] VITALS: BP 145/79
[2017-07-18] MEDS: VANCOMYCIN 1500 MG/NS 500 ML IVPB IV SCH ×4 (08:26→21:16)
[2017-07-18] MEDS: CATHETER FLUSH 10 ML SYR IV PRN ×2 (08:26→10:35)
[2017-07-18 09:11] VITALS: BP 159/99
[2017-07-18 20:42] LABS: CALCIUM 8.7 MG/DL (8.5-10.1); CREATININE SERUM 1.64 MG/DL (0.60-1.30)
[2017-07-18 21:20] VITALS: BP 139/76
[2017-07-19 09:18] VITALS: BP 139/98
[2017-07-19] MEDS: CATHETER FLUSH 10 ML SYR IV PRN (09:18)
[2017-07-19] MEDS: VANCOMYCIN 1500 MG/NS 500 ML IVPB IV SCH ×4 (09:18→19:56)
[2017-07-19 11:33] VITALS: BP 139/98
[2017-07-19 12:28] VITALS: BP 124/80
[2017-07-20] MEDS: VANCOMYCIN 1500 MG/NS 500 ML IVPB IV SCH ×4 (07:24→18:57)
[2017-07-20] MEDS: CATHETER FLUSH 10 ML SYR IV PRN ×2 (07:24→09:28)
[2017-07-20 09:30] VITALS: BP 159/93
[2017-07-20 18:59] VITALS: BP 115/76
[2017-07-20 22:14] VITALS: BP 115/76
[2017-07-21 08:35] VITALS: BP 115/76
[2017-07-21] MEDS: CATHETER FLUSH 10 ML SYR IV PRN ×2 (08:55→10:26)
[2017-07-21] MEDS: VANCOMYCIN 1500 MG/NS 500 ML IVPB IV SCH ×4 (08:55→19:59)
[2017-07-21 23:11] VITALS: BP 136/77
[2017-07-22] MEDS: VANCOMYCIN 1500 MG/NS 500 ML IVPB IV SCH ×4 (08:45→19:59)
[2017-07-22 10:04] VITALS: BP 142/90
[2017-07-22 19:51] VITALS: BP 139/78
[2017-07-22] MEDS: CATHETER FLUSH 10 ML SYR IV PRN (19:59)
[2017-07-23] MEDS: CATHETER FLUSH 10 ML SYR IV PRN (08:30)
[2017-07-23] MEDS: VANCOMYCIN 1500 MG/NS 500 ML IVPB IV SCH ×4 (10:10→19:47)
[2017-07-23 12:27] VITALS: BP 135/98
[2017-07-23 19:43] VITALS: BP 155/78
[2017-07-24 08:02] VITALS: BP 156/108
[2017-07-24] MEDS: VANCOMYCIN 1500 MG/NS 500 ML IVPB IV SCH ×4 (08:02→19:43)
[2017-07-24] MEDS: CATHETER FLUSH 10 ML SYR IV PRN (08:02)
[2017-07-24 10:14] VITALS: BP 156/108
[2017-07-25 00:49] VITALS: BP 143/81
[2017-07-25 08:14] VITALS: BP 145/101
[2017-07-25] MEDS: CATHETER FLUSH 10 ML SYR IV PRN ×2 (08:14→10:18)
[2017-07-25] MEDS: VANCOMYCIN 1500 MG/NS 500 ML IVPB IV SCH ×4 (08:14→19:42)
[2017-07-25 19:30] VITALS: BP 135/88
[2017-07-25 21:41] VITALS: BP 135/88
[2017-07-26] MEDS: CATHETER FLUSH 10 ML SYR IV PRN ×2 (08:23→10:27)
[2017-07-26] MEDS: VANCOMYCIN 1500 MG/NS 500 ML IVPB IV SCH ×4 (08:23→20:05)
[2017-07-26 10:30] VITALS: BP 156/107
[2017-07-26 22:10] VITALS: BP 162/79
[2017-07-27] MEDS: VANCOMYCIN 1500 MG/NS 500 ML IVPB IV SCH ×4 (08:19→19:39)
[2017-07-27] MEDS: CATHETER FLUSH 10 ML SYR IV PRN (10:28)
[2017-07-27 10:29] VITALS: BP 160/98
[2017-07-27 21:45] VITALS: BP 155/90
[2017-07-28] MEDS: CATHETER FLUSH 10 ML SYR IV PRN ×3 (08:29→19:52)
[2017-07-28] MEDS: VANCOMYCIN 1500 MG/NS 500 ML IVPB IV SCH ×4 (08:30→19:52)
[2017-07-28 10:40] VITALS: BP 151/89
[2017-07-28 19:52] VITALS: BP 155/90
[2017-07-29] MEDS: VANCOMYCIN 1500 MG/NS 500 ML IVPB IV SCH ×4 (08:30→19:38)
[2017-07-29] MEDS: CATHETER FLUSH 10 ML SYR IV PRN ×3 (08:30→19:38)
[2017-07-29 11:00] VITALS: BP 105/85
[2017-07-29 19:38] VITALS: BP 138/82
[2017-07-30] MEDS: VANCOMYCIN 1500 MG/NS 500 ML IVPB IV SCH ×4 (08:40→19:51)
[2017-07-30] MEDS: CATHETER FLUSH 10 ML SYR IV PRN ×2 (08:40→10:45)
[2017-07-30 10:50] VITALS: BP 152/101
[2017-07-30 23:18] VITALS: BP 133/78
[2017-07-31 08:20] VITALS: BP 141/98
[2017-07-31] MEDS: VANCOMYCIN 1500 MG/NS 500 ML IVPB IV SCH ×4 (08:28→19:43)
[2017-07-31] MEDS: CATHETER FLUSH 10 ML SYR IV PRN (08:28)
[2017-07-31 21:54] VITALS: BP 159/84
[2017-08-01] MEDS: VANCOMYCIN 1500 MG/NS 500 ML IVPB IV SCH ×4 (07:55→18:28)
[2017-08-01] MEDS: CATHETER FLUSH 10 ML SYR IV PRN ×2 (07:55→10:00)
[2017-08-01 08:26] VITALS: BP 141/98
[2017-08-01 18:26] VITALS: BP 135/83
[2017-08-01 20:55] VITALS: BP 135/83
[2017-08-02 08:16] VITALS: BP 139/89
[2017-08-02] MEDS: VANCOMYCIN 1500 MG/NS 500 ML IVPB IV SCH ×4 (08:21→19:58)
[2017-08-02 10:27] VITALS: BP 139/89
[2017-08-02 19:53] VITALS: BP 134/90
[2017-08-03] MEDS: CATHETER FLUSH 10 ML SYR IV PRN (07:52)
[2017-08-03] MEDS: VANCOMYCIN 1500 MG/NS 500 ML IVPB IV SCH ×4 (07:55→20:49)
[2017-08-03 10:05] VITALS: BP 156/91
[2017-08-03 21:00] VITALS: BP 118/81
[~2017-08-04] VITALS: Ht 193 cm; Wt 109.8 kg
[2017-08-04 08:30] VITALS: BP 157/101
[2017-08-04] MEDS: VANCOMYCIN 1500 MG/NS 500 ML IVPB IV SCH ×4 (08:30→19:54)
[2017-08-04] MEDS: CATHETER FLUSH 10 ML SYR IV PRN ×2 (08:34→10:39)
[2017-08-04 10:40] VITALS: BP 157/101
[~2017-08-04 19:50] MED LIST changes: +TROUGH ORDER-PHARMACY XX NR; +TROUGH ORDER-PHARMACY XX ONE; +VANCOMYCIN 2,500 MG/NS 500 ML IVPB IV NR; +inSUlin (REGULAR) HUMAN 1 UNIT/0.01 ML (CHARGE PER UNIT) SC ONE
[2017-08-04 19:54] VITALS: BP 152/85
== END | disposition home or self-care (01) ==
LOC: SDC 07-11 10:20 → 4TH RCR 07-12 19:30 → SDC 07-13 09:08 → 4TH RCR 07-13 21:05 → SDC 07-14 08:25 → 4TH RCR 07-14 20:05 → SDC 07-15 08:25 → 4TH RCR 07-15 19:55 → SDC 07-16 08:07 → 4TH RCR 07-16 19:50 → SDC 07-17 08:23 → 4TH RCR 07-17 20:00 → SDC 07-18 08:14 → 4TH RCR 07-18 20:20 → SDC 07-19 09:09 → 4TH RCR 07-19 19:15 → SDC 07-20 06:35 → 4TH RCR 07-20 18:55 → SDC 07-21 08:35 → 4TH RCR 07-21 19:30 → SDC 07-22 08:30 → 4TH RCR 07-22 19:51 → SDC 07-23 08:10 → 4TH RCR 07-23 19:43 → SDC 07-24 07:55 → 4TH RCR 07-24 19:25 → SDC 07-25 08:07 → 4TH RCR 07-25 19:30 → SDC 07-26 08:16 → 4TH RCR 07-26 19:50 → SDC 07-27 07:51 → 4TH RCR 07-27 19:40 → SDC 07-28 08:00 → 4TH RCR 07-28 19:55 → SDC 07-29 08:25 → 4TH RCR 07-29 19:35 → SDC 07-30 08:31 → 4TH RCR 07-30 19:30
PROVIDERS: ATTEND Nurse Practitioner
DX: L97.512 Non-pressure chronic ulcer of other part of right foot with fat layer exposed; E11.621 Type 2 diabetes mellitus with foot ulcer; T81.31XA Disruption of external operation (surgical) wound, not elsewhere classified, initial encounter
CPT/HCPCS: 36415; 36569; 36584; 36592; 76937; 80048; 80202; 96365; 96366; 99211

== ENCOUNTER → 2017-08-07 | Outpatient (CLI) | payer OTHER ==
[~2017-08-07] MED LIST changes: -TROUGH ORDER-PHARMACY XX NR; -TROUGH ORDER-PHARMACY XX ONE; -VANCOMYCIN 2,500 MG/NS 500 ML IVPB IV NR; -inSUlin (REGULAR) HUMAN 1 UNIT/0.01 ML (CHARGE PER UNIT) SC ONE
== END ==
LOC: WOUNDCARE 10:29
PROVIDERS: ATTEND Nurse Practitioner
DX: T81.31XA Disruption of external operation (surgical) wound, not elsewhere classified, initial encounter (principal); L97.512 Non-pressure chronic ulcer of other part of right foot with fat layer exposed; E11.621 Type 2 diabetes mellitus with foot ulcer
CPT/HCPCS: 99212

== ENCOUNTER 2017-08-09 08:28 | Outpatient (RCR) | payer OTHER ==
[2017-08-05] MEDS: CATHETER FLUSH 10 ML SYR IV PRN ×2 (08:29→10:42)
[2017-08-05 08:30] VITALS: BP 146/89
[2017-08-05] MEDS: VANCOMYCIN 1500 MG/NS 500 ML IVPB IV SCH ×4 (08:30→18:52)
[2017-08-05 10:44] VITALS: BP 146/89
[2017-08-05 22:06] VITALS: BP 156/91
[2017-08-06] MEDS: CATHETER FLUSH 10 ML SYR IV PRN ×4 (08:52→21:55)
[2017-08-06 08:53] VITALS: BP 154/101
[2017-08-06] MEDS: VANCOMYCIN 1500 MG/NS 500 ML IVPB IV SCH ×4 (08:53→19:48)
[2017-08-06 11:01] VITALS: BP 154/101
[2017-08-06 21:55] VITALS: BP 158/89
[2017-08-07] MEDS: VANCOMYCIN 1500 MG/NS 500 ML IVPB IV SCH ×4 (08:07→19:40)
[2017-08-07] MEDS: CATHETER FLUSH 10 ML SYR IV PRN ×4 (08:07→21:45)
[2017-08-07 08:26] VITALS: BP 139/97
[2017-08-07 21:45] VITALS: BP 159/89
[2017-08-08] MEDS: VANCOMYCIN 1500 MG/NS 500 ML IVPB IV SCH ×4 (08:31→19:41)
[2017-08-08] MEDS: CATHETER FLUSH 10 ML SYR IV PRN ×2 (08:32→19:41)
[2017-08-08 08:35] VITALS: BP 159/108
[2017-08-08 10:35] VITALS: BP 159/108
[2017-08-08 20:46] VITALS: BP 144/80
[~2017-08-09] VITALS: Ht 193 cm; Wt 109.8 kg
[2017-08-09] MEDS: CATHETER FLUSH 10 ML SYR IV PRN ×2 (08:48→10:53)
[2017-08-09] MEDS: VANCOMYCIN 1500 MG/NS 500 ML IVPB IV SCH ×2 (08:48)
[2017-08-09 10:55] VITALS: BP 149/94
[2017-08-09 12:07] VITALS: BP 149/94
== END 2017-11-03 | disposition home or self-care (01) ==
LOC: SDC 08:28
PROVIDERS: ATTEND Nurse Practitioner
DX: E11.621 Type 2 diabetes mellitus with foot ulcer (principal); L97.512 Non-pressure chronic ulcer of other part of right foot with fat layer exposed; T81.31XA Disruption of external operation (surgical) wound, not elsewhere classified, initial encounter
CPT/HCPCS: 96365; 96366

== ENCOUNTER → 2017-08-14 | Outpatient (CLI) | payer OTHER | LOC: WOUNDCARE 10:47 | PROVIDERS: ATTEND Nurse Practitioner | DX: E11.621 Type 2 diabetes mellitus with foot ulcer (principal); L97.512 Non-pressure chronic ulcer of other part of right foot with fat layer exposed; T81.31XA Disruption of external operation (surgical) wound, not elsewhere classified, initial encounter | CPT/HCPCS: 11042 ==

== ENCOUNTER → 2017-08-21 | Outpatient (CLI) | payer OTHER | LOC: WOUNDCARE 10:39 | PROVIDERS: ATTEND Nurse Practitioner | DX: T81.31XA Disruption of external operation (surgical) wound, not elsewhere classified, initial encounter (principal); E11.621 Type 2 diabetes mellitus with foot ulcer; L97.512 Non-pressure chronic ulcer of other part of right foot with fat layer exposed | CPT/HCPCS: 11042 ==

== ENCOUNTER → 2017-08-28 | Outpatient (CLI) | payer OTHER | LOC: WOUNDCARE 10:27 | PROVIDERS: ATTEND Nurse Practitioner | DX: E11.621 Type 2 diabetes mellitus with foot ulcer (principal); L97.512 Non-pressure chronic ulcer of other part of right foot with fat layer exposed; T81.31XA Disruption of external operation (surgical) wound, not elsewhere classified, initial encounter | CPT/HCPCS: 97597 ==

== ENCOUNTER → 2018-03-19 | Outpatient (CLI) | payer OTHER ==
[~2018-03-19] MED LIST changes: -ROSU10TA24 PO; +ROSU10TA26 PO
== END ==
LOC: WOUNDCARE 08:01
PROVIDERS: ATTEND Nurse Practitioner
DX: E11.621 Type 2 diabetes mellitus with foot ulcer (principal); L97.522 Non-pressure chronic ulcer of other part of left foot with fat layer exposed
CPT/HCPCS: 11042; 87070; 87075; 87077; 87101; 87186; 87205

== ENCOUNTER → 2018-03-25 | Outpatient (CLI) | payer OTHER | LOC: WOUNDCARE 14:21 | PROVIDERS: ATTEND Surgery | DX: E11.621 Type 2 diabetes mellitus with foot ulcer (principal); L97.522 Non-pressure chronic ulcer of other part of left foot with fat layer exposed; E11.42 Type 2 diabetes mellitus with diabetic polyneuropathy; E11.65 Type 2 diabetes mellitus with hyperglycemia | CPT/HCPCS: 11042 ==

== ENCOUNTER 2018-04-02 09:59 | Outpatient (RCR) | payer OTHER ==
[2018-03-22 13:00] VITALS: BP 121/81
--- NOTE | 2018-03-22 15:08 | Diagnostic Imaging Report ---
INDICATION: PICC line placement. EXAMINATION: Single view of the chest was obtained at 2:32 p.m. COMPARISON: Prior chest from 01/30/2017. FINDINGS: A left upper extremity PICC line appears to have the tip projected over the lower portion of the right atrium. This could be pulled back approximately 5 cm. The lungs are clear. No pneumothorax is seen. There is no effusion. IMPRESSION: Left upper extremity PICC line, as described. Dictated by: Dictated on workstation # [id number]
[2018-03-22] MEDS: VANCOMYCIN 1,750 MG/NS 500 ML IVPB IV SCH ×2 (15:27)
--- NOTE | 2018-03-22 16:10 | Diagnostic Imaging Report ---
PATIENT HISTORY: PICC PLACEMENT. TECHNIQUE: Two views of the chest. COMPARISON: 03/22/2018 FINDINGS: Lung volumes are low. No focal consolidation is seen. There is no pleural effusion or pneumothorax. The tip of the left PICC line projects over the low SVC. Linear densities overlying the chest are thought to be external to the patient. The heart is normal in size given technique. IMPRESSION: The tip of the left PICC line projects over the low SVC. Dictated by: Dictated on workstation # [id number]
[2018-03-22 16:44] VITALS: BP 121/81
[2018-03-22 18:44] VITALS: BP 121/81
[2018-03-23] MEDS: VANCOMYCIN 1,750 MG/NS 500 ML IVPB IV SCH ×4 (09:30→20:29)
[2018-03-23 11:35] VITALS: BP 128/87
[2018-03-23 20:25] VITALS: BP 135/84
[2018-03-23 23:30] VITALS: BP 135/84
[2018-03-24] MEDS: VANCOMYCIN 1,750 MG/NS 500 ML IVPB IV SCH ×4 (09:29→19:57)
[2018-03-24 11:33] VITALS: BP 119/89
[2018-03-24 22:15] VITALS: BP 121/89
[2018-03-25] MEDS: VANCOMYCIN 1,750 MG/NS 500 ML IVPB IV SCH ×4 (10:29→20:12)
[2018-03-25 12:44] VITALS: BP 129/84
--- NOTE | 2018-03-25 12:56 | Diagnostic Imaging Report ---
INDICATION: PICC line. COMPARISON: 03/22/2018. FINDINGS: The left PICC catheter distal tip is believed seen at the mid to upper SVC level. The cardiomediastinal and hilar contours are stable. No focal consolidation. IMPRESSION: The left PICC line is at the mid to upper SVC. Dictated by: Dictated on workstation # [id number]
[2018-03-25 20:12] VITALS: BP 133/83
[2018-03-26 08:50] VITALS: BP 130/92
[2018-03-26] MEDS: VANCOMYCIN 1,750 MG/NS 500 ML IVPB IV SCH ×4 (08:50→21:45)
[2018-03-26 19:54] VITALS: BP 136/85
[2018-03-27] MEDS: VANCOMYCIN 1,750 MG/NS 500 ML IVPB IV SCH ×4 (10:03→20:30)
[2018-03-27 12:10] VITALS: BP 115/83
[2018-03-27 22:42] VITALS: BP 123/83
[2018-03-28 09:25] VITALS: BP 136/90
[2018-03-28] MEDS: VANCOMYCIN 1,750 MG/NS 500 ML IVPB IV SCH ×4 (09:42→20:48)
[2018-03-28 20:48] VITALS: BP 128/72
[2018-03-29 09:45] VITALS: BP 139/93
[2018-03-29] MEDS: VANCOMYCIN 1,750 MG/NS 500 ML IVPB IV SCH ×4 (10:45→21:59)
[2018-03-29 22:05] VITALS: BP 132/78
[2018-03-30 09:40] VITALS: BP 142/89
[2018-03-30] MEDS: VANCOMYCIN 1,750 MG/NS 500 ML IVPB IV SCH ×4 (09:48→20:19)
[2018-03-30 22:20] VITALS: BP 147/68
[2018-03-31 09:25] VITALS: BP 113/88
[2018-03-31] MEDS: VANCOMYCIN 1,750 MG/NS 500 ML IVPB IV SCH ×4 (09:35→21:00)
[2018-03-31 21:10] VITALS: BP 146/80
[2018-04-01] MEDS: VANCOMYCIN INJECTION 1,500 MG in NS IV 500 ML 500 ML IV SCH ×2 (09:38→19:56)
[2018-04-01 11:43] VITALS: BP 118/95
[2018-04-01 22:14] VITALS: BP 113/78
[~2018-04-02] VITALS: Ht 193 cm; Wt 109.8 kg
[~2018-04-02 09:59] MED LIST changes: -CLON1TAB3 PO; +CLON1TAB4 PO; +NS IV 500 ML 0 ML ONE; -ROSU10TA26 PO; +ROSU10TA27 PO; +TROUGH ORDER-PHARMACY XX ONE; +VANCOMYCIN 1000 MG/VIAL ONE
[2018-04-02] MEDS: VANCOMYCIN INJECTION 1,500 MG in NS IV 500 ML 500 ML IV SCH (10:05)
[2018-04-02 12:07] VITALS: BP 115/88
[2018-05-15] MEDS ORDERED: DULO30CA48 PO (15:22)
[2018-05-15] MEDS ORDERED: MELO15TA39 PO (15:22)
[2018-05-15] MEDS ORDERED: PREG50CA2 PO (15:26)
[2018-05-30] MEDS ORDERED: METR500P4 IV (14:35)
[2018-05-30] MEDS ORDERED: VANC1.2514 IV (14:35)
[2018-05-30] MEDS ORDERED: CEFE2PIG IV (14:35)
[2018-05-31] MEDS ORDERED: CARV6.252 PO (10:42)
[2018-05-31] MEDS ORDERED: ATOR80TA76 PO (10:42)
[2018-05-31] MEDS ORDERED: ASPI-983 PO (10:42)
[2018-05-31] MEDS ORDERED: TICA90TA PO (10:42)
[2018-05-31] MEDS ORDERED: INSU100V16 SQ (10:42)
[2018-05-31] MEDS ORDERED: METR500T21 PO (10:50)
== END 2018-06-20 | disposition home or self-care (01) ==
LOC: SDC 09:59
PROVIDERS: ATTEND Surgery
DX: E11.621 Type 2 diabetes mellitus with foot ulcer (principal); L97.522 Non-pressure chronic ulcer of other part of left foot with fat layer exposed
CPT/HCPCS: 36415; 36569; 36592; 71045; 76937; 80202; 96365; 96366; 99211

== ENCOUNTER → 2018-04-02 | Outpatient (CLI) | payer OTHER | LOC: WOUNDCARE 13:25 | PROVIDERS: ATTEND Surgery | DX: E11.621 Type 2 diabetes mellitus with foot ulcer (principal); L97.522 Non-pressure chronic ulcer of other part of left foot with fat layer exposed; E11.42 Type 2 diabetes mellitus with diabetic polyneuropathy; E11.65 Type 2 diabetes mellitus with hyperglycemia | CPT/HCPCS: 11042 ==

== ENCOUNTER → 2018-04-10 | Outpatient (CLI) | payer OTHER ==
[~2018-04-10] MED LIST changes: +CLON1TAB3 PO; -CLON1TAB4 PO; -NS IV 500 ML 0 ML ONE; +ROSU10TA26 PO; -ROSU10TA27 PO; -TROUGH ORDER-PHARMACY XX ONE; -VANCOMYCIN 1000 MG/VIAL ONE
== END ==
LOC: WOUNDCARE 10:02
PROVIDERS: ATTEND Surgery
DX: E11.621 Type 2 diabetes mellitus with foot ulcer (principal); E11.42 Type 2 diabetes mellitus with diabetic polyneuropathy; E11.65 Type 2 diabetes mellitus with hyperglycemia; L97.522 Non-pressure chronic ulcer of other part of left foot with fat layer exposed
CPT/HCPCS: 11042

== ENCOUNTER 2018-05-15 10:26 | Day surgery (SDC) | payer OTHER ==
[~2018-05-15] VITALS: Ht 193 cm; Wt 115.7 kg
[2018-05-15] VITALS (18 sets, daily range): BP systolic 80–120; BP diastolic 56–90
[~2018-05-15 10:26] MED LIST changes: -CLON1TAB3 PO; +CLON1TAB4 PO; -ROSU10TA26 PO; +ROSU10TA27 PO
[2018-05-15] MEDS ORDERED: morphine INJ 10 MG/ML 1ML (SYR OR VIAL) IV STA (10:38)
[2018-05-15 10:45] LABS: BASOPHILS % (AUTO) 0 % (0-10); EOSINOPHILS # (AUTO) 0.1 10^3/uL (0.0-0.3); EOSINOPHILS % (AUTO) 1 % (0-10); HEMATOCRIT 48 % (40-54); HEMOGLOBIN 17.3 G/DL (13.3-17.7); LYMPHOCYTES # (AUTO) 2.7 X 10^3 (1.0-4.0); LYMPHOCYTES % (AUTO) 40 % (12-44); MEAN CORPUSCULAR HEMOGLOBIN 30 PG (25-34); MEAN CORPUSCULAR HGB CONC 36 G/DL (32-36); MEAN CORPUSCULAR VOLUME 83 FL (80-99); MEAN PLATELET VOLUME 11.2 FL (7.4-10.4); MONOCYTES # (AUTO) 0.6 X 10^3 (0.0-1.0); MONOCYTES % (AUTO) 8 % (0-12); NEUTROPHILS # (AUTO) 3.4 X 10^3 (1.8-7.8); NEUTROPHILS % (AUTO) 51 % (42-75); PLATELET COUNT 154 10^3/uL (130-400); RED BLOOD COUNT 5.75 10^6/uL (4.35-5.85); RED CELL DISTRIBUTION WIDTH 13.1 % (10.0-14.5); WHITE BLOOD COUNT 6.7 10^3/uL (4.3-11.0)
[2018-05-15] MEDS ORDERED: NITROGLYCERIN 0.4 MG SL TABS BTL 25'S SL PRN (10:45)
[2018-05-15] MEDS ORDERED: ASPIRIN 81 MG CHEW (CHILDREN'S ASA) PO ONE (10:45)
[2018-05-15] MEDS ORDERED: LIDOCAINE 1% INJ 20 ML 20 ML VIAL ONE (10:47)
[2018-05-15] MEDS ORDERED: MIDAZOLAM 5 MG/5 ML (VERSED) VIAL ONE (10:48)
[2018-05-15] MEDS ORDERED: NS IV 1000 ML 1,000 ML ONE (10:48)
[2018-05-15] MEDS ORDERED: HEParin 1000 UNIT/ML (10ML VIAL) FOR BOLUS ONE (10:48)
[2018-05-15] MEDS ORDERED: fentaNYL INJECTION 100 MCG/2 ML AMP ONE ×2 (10:48→14:59)
[2018-05-15] MEDS ORDERED: HEParin (CATH LAB) 2,000 ML IV ONE (10:48)
[2018-05-15] MEDS ORDERED: NS IV 1000 ML 1,000 ML IV ONE (10:53)
[2018-05-15] MEDS ORDERED: NS IV 500 ML 500 ML ONE (10:54)
[2018-05-15] MEDS ORDERED: TICAGRELOR 90 MG TABLET (BRILINTA) PO ONE ×3 (10:59→12:29)
[2018-05-15] MEDS ORDERED: HEParin 1000 UNIT/ML (10ML VIAL) FOR BOLUS IV SCH (11:00)
[2018-05-15] MEDS ORDERED: NITRO DRIP 25000 MCG/D5W 250 ML IV ONE (11:06)
--- NOTE | 2018-05-15 11:07 | ED Chest Pain ---
General Chief Complaint: Chest Pain Stated Complaint: CHEST/LEFT ARM PAIN Source: patient Exam Limitations: other (PT IS VAGUE HISTORIAN) History of Present Illness Date Seen by Provider: May 15, 2018 Time Seen by Provider: 10:30 Initial Comments PT ARRIVES VIA POV FROM HOME C/O CHEST PAIN THAT WOKE HIM FROM SLEEP AT 0300 THIS AM PAIN IS IN CENTER AND LEFT MID AND UPPER CHEST, AND RADIATES DOWN LEFT ARM RATES PAIN 6-7/10 NOTHING WORSENS OR IMPROVES PAIN + SHORTNESS OF BREATH + SWEATS + NAUSEA, NO VOMITING NO DIZZINESS NO PALPITATIONS LEFT ARM FEELS A LITTLE NUMB NO HISTORY OF SIMILAR PT IS INSULIN DEPENDENT DIABETIC HAS NOT TAKEN ANY MEDICATIONS TODAY AND HAS NOT EATEN TODAY PT HAS HISTORY OF HTN AND HYPERLIPIDEMIA, AND HAS BEEN ON MEDICATIONS IN THE PAST, BUT THEY WERE DISCONTINUED PT ONLY TAKES INSULIN, LYRICA, CYMBALTA NOW. PER OLD RECORDS, PT HAS ALSO BEEN PRESCRIBED PLAVIX IN THE PAST Allergies and Home Medications Allergies Coded Allergies: rofecoxib (Verified Allergy, Severe, HOSPITALIZED D/T REACTION, 05/10/17) Home Medications Acetaminophen 325 Mg Tablet, 650 MG PO HS, (Reported) TAKES 2 (325 MG) TABLETS Atorvastatin Calcium 40 Mg Tablet, 40 MG PO DAILY Prescribed by: ROSA MARIA PRADO on 01/31/17 09 Clonazepam 1 Mg Tablet, 2 MG PO HS, (Reported) TAKES 2 (1 MG) TABLETS Clopidogrel Bisulfate 75 Mg Tablet, 75 MG PO DAILY Prescribed by: ROSA MARIA PRADO on 01/31/17932 Insulin Glargine,Hum.rec.anlog 300 Unit/1 Ml Insuln.pen, 25 UNIT SQ DAILY, ( Reported) Losartan Potassium 25 Mg Tablet, 25 MG PO DAILY, (Reported) Oxycodone HCl/Acetaminophen 1 Each Tablet, 1-2 EACH PO Q6H PRN for PAIN-SEVERE Prescribed by: JOBY BAKER on 05/30/17 0947 Patient Home Medication List Home Medication List Reviewed: Yes Review of Systems Constitutional: no symptoms reported Respiratory: See HPI, Shortness of Air Cardiovascular: See HPI, Chest Pain; Denies Edema, Denies Lightheadedness, Denies Palpitations, Denies Syncope Gastrointestinal: Denies Abdominal Pain; Nausea; Denies Vomiting Genitourinary: No Symptoms Reported Musculoskeletal: see HPI; No back pain Skin: other (CHRONIC DIABETIC FOOT ULCER, LEFT FOOT) Psychiatric/Neurological: See HPI Endocrine: No Symptoms Reported Hematologic/Lymphatic: No Symptoms Reported Past Hpbomku-Sgbmna-Cibtzr Hx Patient Social History Alcohol Use: Denies Use Recreational Drug Use: No Smoking Status: Never a Smoker 2nd Hand Smoke Exposure: No Recent Foreign Travel: No Contact w/Someone Who Travel: No Recent Hopitalizations: No Immunizations Up To Date Tetanus Booster (TDap): Unknown PED Vaccines UTD: No Date of Pneumonia Vaccine: Jan 02, 2011 Date of Influenza Vaccine: Aug 05, 2013 Seasonal Allergies Seasonal Allergies: No Past Medical History Surgeries: Yes (BACK FUSION, ALL RIGHT TOES AMPUTATED, LEFT TOES 2 AND 3 AMPUTATED; HERNIA REPAIR WITH INFECTION/COMPLICATIONS; PORT RIGHT CHEST/REMOVED DUE TO INFECTION; BILATERAL KNEE SCOPES; LEFT OPEN ACL REPAIR) Abdominal, Amputation, Appendectomy, Gallbladder, Orthopedic, Tonsillectomy Respiratory: No Cardiac: Yes (ON MEDICATIONS IN PAST FOR HTN AND HYPERLIPIDEMIA, BUT NOT NOW) High Cholesterol, Hypertension Neurological: Yes Neuropathy, Stroke Reproductive Disorders: No Sexually Transmitted Disease: No HIV/AIDS: No Genitourinary: Yes Kidney Stones Gastrointestinal: Yes Abdominal Hernia Musculoskeletal: Yes (OSTEOMYELITIS WITH MULTIPLE TOE AMPUTATIONS) Degenerate Disk Disease, Arthritis, Chronic Back Pain Endocrine: Yes Diabetes, Insulin dep Loss of Vision: Bilateral Hearing Impairment: Denies Cancer: No Psychosocial: Yes Anxiety Integumentary: Yes (DIABETIC FOOT ULCERS; POST OP WOUND INFECTIONS TO ABDOMEN AFTER HERNIA SURGERY AND FOR FOOT INFECTIONS/OSTEOMYELITIS--IV VANCOMYCIN VIA PORT, THEN HAD INFECTED PORT. ) Blood Disorders: No Adverse Reaction/Blood Tranf: No (N/A) Family Medical History Family history: Cardiovascular disease 19 FATHER Family history: Diabetes mellitus 19 MOTHER Heart Disease, Diabetes, Hypertension Physical Exam Vital Signs Capillary Refill : Height, Weight, BMI Height: 6'4.00" Weight: 242lbs.0.0oz.[id number]; 29.5 BMI Method:Stated General Appearance: No Apparent Distress, WD/WN HEENT: Other (NO UPPER TEETH, MANY MISSING LOWER TEETH) Neck: Normal Inspection Respiratory: Normal Breath Sounds, No Accessory Muscle Use, No Respiratory Distress Cardiovascular: Regular Rate, Rhythm, No Edema, No JVD, No Murmur, Normal Peripheral Pulses Gastrointestinal: No Pulsatile Mass, Non Tender, Soft Extremity: Normal Capillary Refill, Normal Inspection, Normal Range of Motion, Non Tender, No Calf Tenderness, No Pedal Edema Neurologic/Psychiatric: Alert, Oriented x3, No Motor/Sensory Deficits, Normal Mood/Affect, vice president of product marketing II-XII Norm as Tested Skin: Normal Color, Warm/Dry Critical Care Note Critical Care Total Time (minutes) 20 Progress/Results/Core Measures Results/Orders Lab Results Laboratory Tests Test 05/15/18 10:40 Range/Units White Blood Count 6.7 4.3-11.0 10^3/uL Red Blood Count 5.75 4.35-5.85 10^6/uL Hemoglobin 17.3 13.3-17.7 G/DL Hematocrit 48 40-54 % Mean Corpuscular Volume 83 80-99 FL Mean Corpuscular Hemoglobin 30 25-34 PG Mean Corpuscular Hemoglobin Concent 36 32-36 G/DL Red Cell Distribution Width 13.1 10.0-14.5 % Platelet Count 154 130-400 10^3/uL Mean Platelet Volume 11.2 H 7.4-10.4 FL Neutrophils (%) (Auto) 51 42-75 % Lymphocytes (%) (Auto) 40 12-44 % Monocytes (%) (Auto) 8 0-12 % Eosinophils (%) (Auto) 1 0-10 % Basophils (%) (Auto) 0 0-10 % Neutrophils # (Auto) 3.4 1.8-7.8 X 10^3 Lymphocytes # (Auto) 2.7 1.0-4.0 X 10^3 Monocytes # (Auto) 0.6 0.0-1.0 X 10^3 Eosinophils # (Auto) 0.1 0.0-0.3 10^3/uL Basophils # (Auto) 0.0 0.0-0.1 10^3/uL Sodium Level 134 L 135-145 MMOL/L Potassium Level 4.5 3.6-5.0 MMOL/L Chloride Level 101 98-107 MMOL/L Carbon Dioxide Level 20 L 21-32 MMOL/L Anion Gap 13 5-14 MMOL/L Blood Urea Nitrogen 18 7-18 MG/DL Creatinine 1.15 0.60-1.30 MG/DL Estimat Glomerular Filtration Rate > 60 BUN/Creatinine Ratio 16 Glucose Level 327 H 70-105 MG/DL Calcium Level 9.9 8.5-10.1 MG/DL Magnesium Level 2.2 1.8-2.4 MG/DL Total Bilirubin 1.4 H 0.1-1.0 MG/DL Aspartate Amino Transf (AST/SGOT) 21 5-34 U/L Alanine Aminotransferase (ALT/SGPT) 22 0-55 U/L Alkaline Phosphatase 76 40-136 U/L Myoglobin 98.5 H 10.0-92.0 NG/ML Troponin I < 0.30 <0.30 NG/ML B-Type Natriuretic Peptide 11.6 <100.0 PG/ML Total Protein 7.8 6.4-8.2 GM/DL Albumin 4.1 3.2-4.5 GM/DL Amylase Level 38 25-125 U/L Lipase 71 8-78 U/L My Orders Orders - PAUL IRVING DO Cbc With Automated Diff (05/15/18 10:38) Magnesium (05/15/18 10:38) Chest 1 View, Ap/Pa Only (05/15/18 10:38) Ekg Tracing (05/15/18 10:38) Cardiac Profile 1 (05/15/18 10:38) Comprehensive Metabolic Panel (05/15/18 10:38) Myoglobin Serum (05/15/18 10:38) Protime With Inr (05/15/18 10:38) Partial Thromboplastin Time (05/15/18 10:38) O2 (05/15/18 10:38) Monitor-Rhythm Ecg Trace Only (05/15/18 10:38) Lipid Panel (05/16/18 06:00) Aspirin Chewable Tablet (Baby Aspirin Ch (05/15/18 10:45) Nitroglycerin 0.4 Mg Btl 25's (Nitrostat (05/15/18 10:45) Morphine Injection (Morphine Injection (05/15/18 10:38) Saline Lock/Iv-Start (05/15/18 10:38) Lipase (05/15/18 10:38) Amylase (05/15/18 10:38) BNP (05/15/18 10:38) Ticagrelor Tablet (Brilinta Tablet) (05/15/18 11:00) Heparin (Bolus Per Protocol) (Heparin (B (05/15/18 11:00) Progress Progress Note : Progress Note PAIN SLIGHTLY IMPROVED WITH MEDICATIONS Initial ECG Impression Date: May 15, 2018 Initial ECG Impression Time: 10:29 Initial ECG Rate: 85 Initial ECG Rhythm: Normal Sinus Initial ECG Impression: Acute CT (ANTERIOR) Initial ECG Comparisson: Changed (FROM 2013) EKG : EKG Time: 10:50 Rate: 115 Rhythm: S.Tach ECG Impression: Acute CT (ANTERIOR) Departure Communication (Admissions) 1034--PAGING DR. PRINGLE, [employer]OCK WO[employer] INSULATOR PER CALL LIST 1041--PAGING DR. PRINGLE 1042--NO ANSWER ON DR. PRINGLE'S CELL PHONE 1042--NO ANSWER ON DR. MARIA'S CELL PHONE 1043--CONTACTED DR. RANKIN, STATES HE IS ROCK WOOL INSULATOR TODAY. INFORMED OF STEMI. HE ADVISES TO CALL IN COSTUME TECHNICIAN, GIVE BRILINTA 180 MG AND HEPARIN BOLUS 5000 UNITS 1049--DR. RANKIN HERE, CARE TURNED OVER TO HIM Impression Primary Impression: ACUTE ANTERIOR STEMI Additional Impression: IDDM (insulin dependent diabetes mellitus) Disposition: ADMITTED INPATIENT (TO COSTUME TECHNICIAN) Condition: Improved Admissions Decision to Admit Reason: Admit from ER (General) (TO COSTUME TECHNICIAN) Decision to Admit/Date: May 15, 2018 Time/Decision to Admit Time: 19:35 Departure-Patient Inst. Referrals: ROSA MARIA PRADO MD (PCP) Primary Care Physician PAUL IRVING DO May 15, 2018 11:07
[2018-05-15] MEDS ORDERED: ONDANSETRON 4 MG/2 ML (SDV) Z0FRAN ONE ×2 (11:10→14:16)
[2018-05-15 11:13] LABS: ALANINE AMINOTRANSFERASE 22 U/L (0-55); ALBUMIN 4.1 GM/DL (3.2-4.5); ALKALINE PHOSPHATASE 76 U/L (40-136); AMYLASE 38 U/L (25-125); BILIRUBIN,TOTAL 1.4 MG/DL (0.1-1.0); BUN/CREATININE RATIO 16; CALCIUM 9.9 MG/DL (8.5-10.1); CARBON DIOXIDE 20 MMOL/L (21-32); CHLORIDE 101 MMOL/L (98-107); CREATININE SERUM 1.15 MG/DL (0.60-1.30); GFR ESTIMATED > 60; GLUCOSE 327 MG/DL (70-105); LIPASE 71 U/L (8-78); MAGNESIUM 2.2 MG/DL (1.8-2.4); POTASSIUM 4.5 MMOL/L (3.6-5.0); SODIUM 134 MMOL/L (135-145); TOTAL PROTEIN 7.8 GM/DL (6.4-8.2)
[2018-05-15 11:20] LABS: MYOGLOBIN SERUM 98.5 NG/ML (10.0-92.0)
[2018-05-15 11:30] LABS: INR 0.9 (0.8-1.4); PROTHROMBIN TIME PATIENT 12.2 SEC (12.2-14.7)
[2018-05-15] MEDS ORDERED: EPTIFIBATIDE BOLUS 20 ML IV ONE (12:09)
[2018-05-15] MEDS ORDERED: EPTIFIBATIDE DRIP 100 ML IV ONE (12:09)
[2018-05-15] MEDS ORDERED: NS IV 1000 ML 1,000 ML IV SCH (12:30)
--- NOTE | 2018-05-15 12:41 | History & Physicial-Cardiolgy ---
HPI-Cardiology Cardiology Consultation: Date of Consultation 05/15/18 Date of Admission Attending Physician Chris Brennan MD Admitting Physician Melida Ha MD Consulting Physician Chris BRENNAN MD HPI: Time Seen by Provider: 10:49 Chief Complaint: Chest pain PT ARRIVES VIA POV FROM HOME C/O CHEST PAIN THAT WOKE HIM FROM SLEEP AT 0300 THIS AM This is a 57-year-old gentleman with no past history of cardiac pathology. He does have history of hypertension and hyperlipidemia. He also has history of insulin dependent diabetes. He is having substernal chest pain radiating to the left arm. Moderate intensity. He has been having chest pain for 7-8 hours before admission. Also complains of shortness of breath, sweating and nausea. No other symptoms. Review of Systems-Cardiology Review of Systems Constitutional: As described under HPI; No As described under HPI, No no symptoms reported, No chills, No fever, No lightheadedness Eyes: No As described under HPI, No no symptoms reported, No blindness, No blurred vision, No contact lenses, No drainage, No decreased acuity, No foreign body sensation, No pain, No vision change Ears/Nose/Throat: No As described under HPI, No no symptoms reported, No chronic hearing loss, No ear discharge, No ear pain, No nasal drainage, No ulcerations Respiratory: No no symptoms reported; As described under HPI; No As described under HPI, No cough, No orthopnea; shortness of breath; No SOB with excertion Cardiovascular: No no symptoms reported; As described under HPI; No As described under HPI; chest pain; No edema, No irregular heart rate, No lightheadedness, No palpitations Gastrointestinal: No no symptoms reported, No As described under HPI, No abdomen distended, No abdominal pain, No blood streaked bowels, No constipation , No diarrhea; nausea; No vomiting, No stool coloration changes Genitourinary: No As described under HPI, No burning, No dysuria, No discharge , No frequency, No flank pain, No hematuria, No urgency Musculoskeletal: No no symptoms reported, No As describe under HPI, No back pain, No gout, No joint pain, No joint swelling, No muscle pain, No muscle stiffness, No neck pain, No other Skin: No no symptoms reported, No As described under HPI, No change in color, No change in hair/nails, No dryness, No lesions, No lumps, No rash, No other, No skin related problems, No ulcerations, No rash on exposed areas, No ulcerations on exposed areas Psychiatric/Neurological: No no symptoms reported, No As described under HPI, No anxiety, No depression, No emotional problems, No headache, No numbness, No pre-existing deficit, No seizure, No tingling, No tremors, No weakness, No other , No focal weakness, No syncope Hematologic: No no symptoms reported, No As described under HPI, No anemia, No blood clots, No easy bleeding, No easy bruising, No swollen glands, No other, No bleeding abnormalities CUV-Xejpbj-Tbmzsg Hx Patient Social History Alcohol Use: Denies Use Recreational Drug Use: No Smoking Status: Never a Smoker 2nd Hand Smoke Exposure: No Recent Foreign Travel: No Immunizations Up To Date Tetanus Booster (TDap): Unknown Date of Pneumonia Vaccine: Jan 02, 2011 Date of Influenza Vaccine: Aug 05, 2013 Past Medical History PMH As described under Assessment. Family Medical History Family History: Family history: Cardiovascular disease 19 FATHER Family history: Diabetes mellitus 19 MOTHER Allergies and Home Medications Allergies Coded Allergies: rofecoxib (Verified Allergy, Severe, HOSPITALIZED D/T REACTION, 05/10/17) Home Medications Clonazepam 1 Mg Tablet, 2 MG PO HS, (Reported) TAKES 2 (1 MG) TABLETS Duloxetine HCl 30 Mg Capsule.dr, 30 MG PO DAILY, (Reported) Insulin Glargine,Hum.rec.anlog 300 Unit/1 Ml Insuln.pen, 50 UNIT SQ DAILY, ( Reported) Meloxicam 15 Mg Tablet, 15 MG PO DAILY, (Reported) Pregabalin 50 Mg Capsule, 50 MG PO DAILY, (Reported) Patient Home Medication List Home Medication List Reviewed: Yes Physical Exam-Cardiology Physical Exam Vital Signs/I&O 05/15/18 05/15/18 05/15/18 05/15/18 10:29 10:32 10:55 11:32 Temp 96.1 Pulse 111 86 Resp 20 B/P (MAP) 101/81 117/107 (110) Pulse Ox 100 100 O2 Delivery Nasal Cannula Nasal Cannula Nasal Cannula Nasal Cannula O2 Flow Rate 2.00 2.0 2.0 2.00 FiO2 100 05/15/18 05/15/18 05/15/1818 13:00 13:00 13:15 13:30 Temp 97.4 Pulse 82 83 82 78 Resp 14 16 14 B/P (MAP) 119/82 (94) 120/90 (100) 117/84 (95) Pulse Ox 94 92 97 O2 Delivery Nasal Cannula Nasal Cannula Nasal Cannula O2 Flow Rate 2.00 2.00 2.00 05/15/18 05/15/18 05/15/18 05/15/18 13:45 14:00 14:15 14:15 Pulse 79 80 89 Resp 12 14 18 B/P (MAP) 117/82 (94) 116/81 (93) 80/56 (64) Pulse Ox 92 97 98 O2 Delivery Nasal Cannula Nasal Cannula Nasal Cannula Nasal Cannula O2 Flow Rate 2.00 2.00 2.00 2.00 05/15/18 05/15/18 05/15/18 05/15/18 14:30 14:45 15:00 15:30 Pulse 74 73 69 70 Resp 15 12 18 15 B/P (MAP) 89/70 (76) 107/79 (88) 113/78 (90) 104/82 (89) Pulse Ox 98 99 100 100 O2 Delivery Nasal Cannula Nasal Cannula Nasal Cannula Nasal Cannula O2 Flow Rate 2.00 2.00 2.00 2.00 05/15/18 05/15/18 05/15/18 05/15/18 16:00 17:00 17:23 18:00 Pulse 71 82 83 Resp 14 16 18 B/P (MAP) 111/79 (90) 104/73 (83) 105/74 (84) Pulse Ox 98 91 96 O2 Delivery Nasal Cannula Nasal Cannula Room Air Room Air O2 Flow Rate 2.00 2.00 05/15/18 19:00 Pulse 89 Capillary Refill : Constitutional: appears stated age, AAO x 3, apparent distress, well-developed , well-nourished HEENT: PERRL; No normal ENT inspection, No TMs normal, No pharynx normal, No scleral icterus (R), No scleral icterus (L), No pale conjunctivae (R), No pale conjunctivae (L), No photophobia, No TM abnormal (R), No TM abnormal (L), No pharyngeal erythema, No tonsillar exudate, No other, No discharge, No EOMI; hearing is well preserved; No hard of hearing; oral hygience is good; No ulceration, No xanthelasmas are seen Neck: No non-tender, No full range of motion, No supple, No normal inspection, No carotid bruit, No limited range of motion, No lymphadenopathy (R), No lymphadenopathy (L), No tender lateral, No tender midline, No thyromegaly, No other; carotid pulses are 2 + bilaterally; No with good upstrokes Respiratory: No accessory muscle use, No respiratory distress, No chest tender , No chest expansion is symmetric; chest is bilaterally symmetric; No lungs clear to percussion; lungs clear to auscultation; No crackles, No rhonchi, No rales, No stridor, No wheezing, No pleural rub, No other Cardiovascular: regular rate-rhythm; No irregularly irregular, No extra beats, No parasternal heave is noted, No JVD, No edema, No bradycardia, No tachycardia , No point of maximal impulse, No cardiac thrills are palpable; S1 and S2; No gallop/S3, No gallop/S4, No diastolic murmur, No systolic murmur, No friction rub, No click, No other Gastrointestinal: No spleenomegaly Rectal: deferred Extremities: No normal range of motion, No non-tender, No normal inspection, No pedal edema, No calf tenderness, No normal capillary refill, No pelvis stable , No calf tenderness, No inflammation, No pedal edema, No slow capillary refill , No swelling, No other, No abrasion, No clubbing, No cyanosis, No ecchymosis, No laceration, No no lower extremity edema bilateral, No significant edema, No tenderness, No wound Neurologic/Psychiatric: alert, oriented x 3, power is 5/5 both on sides Skin: No normal color, No warm/dry, No cyanosis, No cool, No diaphoresis, No damp, No ecchymosis, No jaundice, No mottled, No pallor, No rash, No tattoos/ piercings, No ulcerations, No rash on exposed areas, No ulcerations on exposed areas, No other Data Review Labs Laboratory Tests 05/15/18 10:40: White Blood Count 6.7, Red Blood Count 5.75, Hemoglobin 17.3, Hematocrit 48, Mean Corpuscular Volume 83, Mean Corpuscular Hemoglobin 30, Mean Corpuscular Hemoglobin Concent 36, Red Cell Distribution Width 13.1, Platelet Count 154, Mean Platelet Volume 11.2H, Neutrophils (%) (Auto) 51, Lymphocytes (%) (Auto) 40 , Monocytes (%) (Auto) 8, Eosinophils (%) (Auto) 1, Basophils (%) (Auto) 0, Neutrophils # (Auto) 3.4, Lymphocytes # (Auto) 2.7, Monocytes # (Auto) 0.6, Eosinophils # (Auto) 0.1, Basophils # (Auto) 0.0, Prothrombin Time 12.2, INR Comment 0.9, Activated Partial Thromboplast Time 27, Sodium Level 134L, Potassium Level 4.5, Chloride Level 101, Carbon Dioxide Level 20L, Anion Gap 13 , Blood Urea Nitrogen 18, Creatinine 1.15, Estimat Glomerular Filtration Rate > 60, BUN/Creatinine Ratio 16, Glucose Level 327H, Calcium Level 9.9, Magnesium Level 2.2, Total Bilirubin 1.4H, Aspartate Amino Transf (AST/SGOT) 21, Alanine Aminotransferase (ALT/SGPT) 22, Alkaline Phosphatase 76, Myoglobin 98.5H, Troponin I < 0.30, B-Type Natriuretic Peptide 11.6, Total Protein 7.8, Albumin 4.1, Amylase Level 38, Lipase 71 05/15/18 14:20: Troponin I 0.62*H 05/15/18 14:32: Glucometer 234H 05/15/18 20:29: Glucometer 309H ECG Impression ECG Initial ECG Rhythm: Normal Sinus Initial ECG Impression: Acute RI A/P-Cardiology Assessment/Admission Diagnosis Acute coronary syndrome, Diabetes, Hyponatremia, High hemoglobin and hematocrit, Hypertension, hyperlipidemia Admission Status: Inpatient Order (span 2 midnights) Reason for Inpatient Admission: Acute RI Plan Acute coronary syndrome: Acute chest pain with Q waves in the anterior precordial leads and ST elevation suggest either ST elevation RI or chest pain with concomitant previous old anterior infarct with akinesis and baseline ST elevation. No old EKG are available. The patient has been having chest pain for 7-8 hours however the first troponin is negative. Urgent coronary angiography is still recommended. Aspirin bolus, Brilinta bolus, 5000 of IV heparin. Hyponatremia: Likely secondary to psychotropic medications. Diabetes: Continue insulin. Medical consultation. High hemoglobin and hematocrit. Hypertension and hyperlipidemia Chris BRENNAN MD May 15, 2018 12:41 pm
--- NOTE | 2018-05-15 12:42 | Coronary Angiography & PCI ---
Coronary Angiography & PCI DATE OF PROCEDURE: 05/15/18 INDICATION: Acute coronary syndrome PREOPERATIVE DIAGNOSIS: Acute coronary syndrome POSTOPERATIVE DIAGNOSIS: 1. 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 2. Severe ostial OM 2 artery stenosis treated successfully with a drug-eluting stent. 3. Severe distal RCA stenosis. HISTORY: This is a 57-year-old gentleman with history of diabetes, hypertension and hyperlipidemia. He presented to the ER with moderate to severe chest pain for 7-8 hours. First troponin is negative. EKG shows sinus rhythm with anterior Q waves and ST elevation. Therefore, the patient was scheduled for coronary angiography. PROCEDURES PERFORMED: 1. Coronary angiography. 2. Left heart catheterization. 3. Attempted PCI to the LAD. 4. Attempted PCI to OM1 artery. 5. Successful PCI with drug-eluting stent to OM 2 artery. 6. Aortic arch angiography. COMPLICATIONS: None. SPECIMENS: None. ESTIMATED BLOOD LOSS: 10 mL ANESTHESIA: Conscious sedation ANTICOAGULATION: IV heparin, IV Integrilin CONTRAST: 375 mL. FLUOROSCOPY: 38 minutes. FLOUROSCOPY DOSE: [id number]. PROCEDURE DETAILS: The patient is a 57 male and was brought to the photonic laboratory technician after informed consent was taken. All the risks and complications were explained in detail; this included the risk of bleeding, vascular damage, stroke , ME and even . The patient was draped and prepped in the usual sterile fashion. Access was gained in the right femoral artery with a 6 Urdu sheath. Left cardiac system was engaged with an EBU 3.5 guide catheter. RCA was engaged with a JR4 catheter. Left heart catheterization and aortic arch angiography was done with a pigtail catheter. FINDINGS: 1.Left main: Patent. 2.LAD: Total occlusion of the mid LAD, likely chronic. 3.Left circumflex artery: Total occlusion of the OM 1 artery likely chronic. Severe ostial stenosis of OM 2 artery. Stenosis severity is 99 percent. 4.RCA: Severe distal RCA and ostial PDA stenosis. 5.Left heart catheterization: Normal LV function with apical akinesis. No gradient across the aortic valve. 6. Aortic arch angiogram: No evidence of dissection or aneurysm. Patent segments proximally of the great arteries including brachiocephalic artery, common carotid artery, left subclavian artery. RECOMMENDATIONS: Attempted PCI to the LAD and OM 1 artery. PCI to OM 2 artery. INTERVENTION DETAILS: Reviewing the EKG showed Q waves in the anterior lead with ST elevation therefore we decided to proceed with an EBU 3.5 guide catheter and a whisper guidewire. Heparin was given for anticoagulation. 1 ACT was done. ACT was over 250 seconds. IV Integrilin was started after double bolus. Brilinta 180 mg bolus was given. Mid LAD occlusion was noted however there was no stump. There was very faint filling distally therefore we tried to cross the lesion with the whisper wire and then with the whisper wire and then with a 2.0x12 balloon, were unsuccessful in crossing. We tried with BMW as well as with a choice floppy wire but were unable to cross distally. This was likely due to the lesion being chronic. We therefore took the wire and balloon out into the guide catheter and decided to evaluate the left circumflex system since the LAD lesion could be a chronic total occlusion due to a previous infarct with Q waves on the EKG and persistent ST elevation due to akinetic distal anterior and apex. There was a total occlusion at the ostium of an OM1 artery. We tried whisper wire and then BMW within without the support of a balloon and were not able to cross distally which again suggested likely chronic nature of this occlusion. There was a severe ostial stenosis of OM 2 artery. This lesion was crossed with a choice floppy wire. Predilated with a 2.0 balloon. We then placed a 2.25 x 12mm Xience Alpine stent at 14 bibiana. Stenosis severity was reduced from 99 percent to 0 percent. ROBER 3 flow. Also to note that the ostium of this OM artery was hazy looking and could be the likely culprit lesion. After the stent was placed there was mild pinching of the AV groove artery. However there was ROBER-3 flow. Patient's chest pain improved. Mynx closure of the RFA. CONCLUSIONS: 1. PCI with BEBA to ostium of the second OM artery. 2. Unsuccessful PCI attempt to mid LAD and OM 1 artery. Likely chronic total occlusion. 3. Acute coronary syndrome is likely non-STEMI due to subtotal occlusion of a second OM artery. The EKG probably demonstrates an old anterior infarct with persistent ST elevations due to distal anterior wall and apical akinesis. 4. Dual antiplatelet therapy. High dose statin. Beta osmar and AZEB inhibitor. Continue Integrilin overnight. Casper Brennan MD, FACP, FACC, [facility] Interventional Cardiology Chris BRENNAN MD May 15, 2018 12:42 pm
--- NOTE | 2018-05-15 12:42 | Cardiac Procedure Note-CS/ASA ---
Pre-Procedure Note Pre-Op Procedure Note H&P Reviewed The H&P was reviewed, patient examined and no changes noted. Date H&P Reviewed: May 15, 2018 Time H&P Reviewed: 10:30 Conscious Sedation Pre-Proced Time Reviewed: 10:30 ASA Class: 3 Airway Mallampati Classification: ([place]shosh[place] appropriate class) I. II. III, IV Lungs Heart ASA score ASA 1: a normal healthy patient ASA 2: a patient with a mild systemic disease (mid diabetes, controlled hypertension, obesity ASA 3: a patient with a severe systemic disease that limits activity (angina , COPD, prior Myocardial infarction) ASA 4: a patient with an incapacitating disease that is a constant threat to life (CHF, renal failure) ASA 5: a moribund patient not expected to survive 24 hrs. (ruptured aneurysm) ASA 6: a declared brain patient whose organs are being harvested. For emergent operations, add the letter E after the classification Grade 1 Sedation Plan: Analgesia, Amnesia, Plan communicated to team members, Discussed options with patient/fam, Discussed risks with patient/fam Note The patient is an appropriate candidate to undergo the planned procedure, sedation, and anesthesia. The patient immediately re-assessed prior to indication. Chris RANKIN MD May 15, 2018 12:42
[2018-05-15] MEDS ORDERED: PATIENT MAY USE OWN MEDS, ALL PO SCH (12:45)
[2018-05-15] MEDS: NS IV 1000 ML 1,000 ML IV SCH ×2 (13:00→14:34)
[2018-05-15] MEDS ORDERED: NITROGLYCERIN 0.4 MG SL TABS BTL 25'S SL ONE (14:05)
[2018-05-15] MEDS ORDERED: morphine INJ 4 MG/ML 1 ML (VIAL/SYRINGE) ONE (14:09)
[2018-05-15] MEDS ORDERED: morphine INJ 4 MG/ML 1 ML (VIAL/SYRINGE) IVP PRN (14:15)
[2018-05-15] MEDS: fentaNYL INJECTION 100 MCG/2 ML AMP IVP PRN ×5 (15:06→23:21)
[2018-05-15] MEDS ORDERED: DULO30CA48 PO (15:22)
[2018-05-15] MEDS ORDERED: MELO15TA39 PO (15:22)
[2018-05-15] MEDS ORDERED: PREG50CA2 PO (15:26)
[2018-05-15] MEDS: EPTIFIBATIDE DRIP 100 ML IV SCH ×3 (16:27→23:04)
[2018-05-15] MEDS: SUCRALFATE 1 GM (CARAFATE) TAB PO SCH ×2 (16:27→21:54)
[2018-05-15] MEDS: PANTOPRAZOLE 40 MG/10 ML (PROTONIX) VIAL IV SCH ×2 (16:32→21:54)
[2018-05-15] MEDS ORDERED: NON-FORMULARY MEDICATION 1 EA EA (Clonazepam 2 MG) PO SCH (21:00)
[2018-05-15] MEDS ORDERED: clonazePAM 1 MG (KlonoPIN) TAB PO SCH ×2 (21:00)
[2018-05-15] MEDS ORDERED: ACETAMINOPHEN 325 MG TABLET PO ONE (21:00)
[2018-05-15] MEDS: TICAGRELOR 90 MG TABLET (BRILINTA) PO SCH (21:55)
[2018-05-15] MEDS: inSUlin ASPART (NovoLOG) 1 UNIT/0.01 ML (CHARGE PER UNIT) SQ SCH (21:56)
[2018-05-15] MEDS ORDERED: lisINopril 40 MG (PRINIVIL) TABLET PO ONE (22:45)
[2018-05-15] MEDS ORDERED: lisINopril 5 MG (PRINIVIL) TABLET PO ONE (22:45)
[2018-05-15] MEDS ORDERED: meTOprolol TARTRATE 25 MG (LOPRESSOR) TABLET ONE (23:11)
[2018-05-15] MEDS ORDERED: lisINopril 5 MG (PRINIVIL) TABLET ONE (23:11)
[2018-05-16] VITALS (15 sets, daily range): BP systolic 95–152; BP diastolic 62–93
[2018-05-16] MEDS: fentaNYL INJECTION 100 MCG/2 ML AMP IVP PRN ×5 (00:30→10:20)
[2018-05-16] MEDS: NS IV 1000 ML 1,000 ML IV SCH ×2 (01:23→12:03)
[2018-05-16 04:05] LABS: BASOPHILS % (AUTO) 0 % (0-10); EOSINOPHILS # (AUTO) 0.1 10^3/uL (0.0-0.3); EOSINOPHILS % (AUTO) 1 % (0-10); HEMATOCRIT 42 % (40-54); HEMOGLOBIN 15.1 G/DL (13.3-17.7); LYMPHOCYTES # (AUTO) 2.4 X 10^3 (1.0-4.0); LYMPHOCYTES % (AUTO) 36 % (12-44); MEAN CORPUSCULAR HEMOGLOBIN 31 PG (25-34); MEAN CORPUSCULAR HGB CONC 36 G/DL (32-36); MEAN CORPUSCULAR VOLUME 85 FL (80-99); MEAN PLATELET VOLUME 10.7 FL (7.4-10.4); MONOCYTES # (AUTO) 0.6 X 10^3 (0.0-1.0); MONOCYTES % (AUTO) 9 % (0-12); NEUTROPHILS # (AUTO) 3.6 X 10^3 (1.8-7.8); NEUTROPHILS % (AUTO) 54 % (42-75); PLATELET COUNT 120 10^3/uL (130-400); RED BLOOD COUNT 4.88 10^6/uL (4.35-5.85); RED CELL DISTRIBUTION WIDTH 13.1 % (10.0-14.5); WHITE BLOOD COUNT 6.6 10^3/uL (4.3-11.0)
[2018-05-16 04:30] LABS: BUN/CREATININE RATIO 17; CALCIUM 8.4 MG/DL (8.5-10.1); CARBON DIOXIDE 23 MMOL/L (21-32); CHLORIDE 105 MMOL/L (98-107); CHOLESTEROL 322 MG/DL (< 200); CREATININE SERUM 1.12 MG/DL (0.60-1.30); GFR ESTIMATED > 60; GLUCOSE 174 MG/DL (70-105); HDL CHOLESTEROL 29 MG/DL (40-60); MAGNESIUM 2.1 MG/DL (1.8-2.4); PHOSPHORUS 2.9 MG/DL (2.3-4.7); POTASSIUM 4.2 MMOL/L (3.6-5.0); SODIUM 137 MMOL/L (135-145); TRIGLYCERIDES 915 MG/DL (<150)
[2018-05-16] MEDS: EPTIFIBATIDE DRIP 100 ML IV SCH ×2 (04:42→10:54)
[2018-05-16] MEDS: SUCRALFATE 1 GM (CARAFATE) TAB PO SCH ×2 (05:32→09:24)
[2018-05-16] MEDS ORDERED: MAGNESIUM 1 GM/100 ML IVPB 100 ML IV SCH (06:00)
[2018-05-16] MEDS ORDERED: POTASSIUM CL 10MEQ/50ML IVPB 50 ML IV SCH (06:00)
[2018-05-16] MEDS ORDERED: KCL 20 MEQ TAB (K-DUR) PO SCH (06:00)
[2018-05-16] MEDS: inSUlin ASPART (NovoLOG) 1 UNIT/0.01 ML (CHARGE PER UNIT) SQ SCH ×2 (06:06→10:48)
[2018-05-16] MEDS ORDERED: ASPIRIN E.C. 81 MG (ECOTRIN) TAB PO SCH (09:00)
--- NOTE | 2018-05-16 09:08 | Consultation ---
History of Present Illness History of Present Illness Patient Consulted On(dm/time) 05/16/18 09:01 Date Seen by Provider: May 16, 2018 Time Seen by Provider: 08:30 Reason for Visit: CHEST PAIN History of Present Illness PT IS A 57 Y/O MALE WHO IS WELL KNOWN TO ME FROM CLINIC. HE IS A NOTORIOUSLY NON COMPLIANT DIABETIC - WITH PERIODS OF TIME THAT HE IS COMPLIANT WITH HIS MEDICATION REGIMEN, AND THEN HE WILL SLIDE BACK DOWN THE PATH OF NON COMPLIANCE. HE PRESENTED TO THE HOSPITAL YESTERDAY MID MORNING WITH CHEST PAIN OF ABOUT 7 HOURS DURATION. HE REPORTS THAT HE WAS NOT DOING ANY STRENUOUS ACTIVITY ON THE DAY OF OR THE DAY PRIOR TO HIS ADMISSION. HE WAS TAKEN BY DR. RANKIN FOR HEART CATHETERIZATION AND IT WAS FOUND THAT HIS LAD WAS COMPLETELY OCCLUDED WITH OM OCCLUDED WELL. THIS MORNING, DESPITE INTERVENTION OF THE OM - LUIS IS STILL HAVING CHEST PAIN. Allergies and Home Medications Allergies Coded Allergies: rofecoxib (Verified Allergy, Severe, HOSPITALIZED D/T REACTION, 05/10/17) Home Medications Clonazepam 1 Mg Tablet, 2 MG PO HS, (Reported) TAKES 2 (1 MG) TABLETS Duloxetine HCl 30 Mg Capsule.dr, 30 MG PO DAILY, (Reported) Insulin Glargine,Hum.rec.anlog 300 Unit/1 Ml Insuln.pen, 50 UNIT SQ DAILY, ( Reported) Meloxicam 15 Mg Tablet, 15 MG PO DAILY, (Reported) Pregabalin 50 Mg Capsule, 50 MG PO DAILY, (Reported) Patient Home Medication List Home Medication List Reviewed: Yes Past Vdlktbd-Rbjgsb-Fbsfei Hx Past Med/Social Hx: Reviewed Nursing Past Med/Soc Hx, Reviewed and Corrections made Patient Social History Alcohol Use: Denies Use Recreational Drug Use: No Smoking Status: Never a Smoker 2nd Hand Smoke Exposure: No Recent Foreign Travel: No Contact w/Someone Who Travel: No Recent Infectious Disease Expo: No Recent Hopitalizations: No Physical Abuse: No Sexual Abuse: No Immunizations Up To Date Tetanus Booster (TDap): Unknown PED Vaccines UTD: No Date of Pneumonia Vaccine: Jan 02, 2011 Date of Influenza Vaccine: Aug 05, 2013 Seasonal Allergies Seasonal Allergies: No Past Medical History Surgeries: Yes Abdominal, Amputation, Appendectomy, Gallbladder, Orthopedic, Tonsillectomy Respiratory: No Currently Using CPAP: No Currently Using BIPAP: No Cardiac: Yes High Cholesterol, Hypertension Neurological: No Neuropathy, Stroke Reproductive Disorders: No Sexually Transmitted Disease: No HIV/AIDS: No Genitourinary: Yes Kidney Stones Gastrointestinal: Yes Abdominal Hernia Musculoskeletal: Yes (OSTEOMYELITIS WITH MULTIPLE TOE AMPUTATIONS, BACK FUSION X3) Degenerate Disk Disease, Arthritis, Chronic Back Pain Endocrine: Yes Diabetes, Insulin dep HEENT: No Loss of Vision: Bilateral Hearing Impairment: Denies Cancer: No Psychosocial: Yes Anxiety, Depression Nursing Suicide Risk Score: 0 Integumentary: No Blood Disorders: No Adverse Reaction/Blood Tranf: No Family Medical History Reviewed and Corrections made Family history: Cardiovascular disease 19 FATHER Family history: Diabetes mellitus 19 MOTHER Heart Disease, Diabetes, Hypertension, Psychiatric Problems (DEPRESSION, BIPLOAR ), Renal Disease, Vascular Disease (PAD IN HIS MOM) Review of Systems-General Constitutional: No chills, No dizziness, No fever, No malaise, No weakness EENTM: No hoarseness Respiratory: No cough, No dyspnea on exertion, No short of breath Cardiovascular: chest pain Gastrointestinal: No abdominal pain, No constipation, No diarrhea Genitourinary: no symptoms reported Musculoskeletal: No muscle pain, No muscle weakness Skin: other (CHRONIC FOOT WOUNDS) Psychiatric/Neurological: Anxiety, Paresthesia All Other Systems Reviewed Negative Unless Noted: Yes Physical Exam-General Problems Physical Exam Vital Signs Vital Signs - First Documented 05/15/18 05/15/18 05/15/18 00:00 10:29 10:55 Temp 98.4 Pulse 111 Resp 20 B/P (MAP) 101/81 Pulse Ox 100 O2 Delivery Nasal Cannula O2 Flow Rate 2.00 FiO2 100 Capillary Refill : Less Than 3 Seconds General Appearance: WD/WN, no apparent distress Eyes: Bilateral Eye Normal Inspection, Bilateral Eye PERRL, Bilateral Eye EOMI HEENT: PERRL/EOMI, pharynx normal Neck: non-tender, full range of motion, supple, normal inspection Respiratory: chest non-tender, lungs clear, normal breath sounds, no respiratory distress, no accessory muscle use Cardiovascular: regular rate, rhythm, no edema Peripheral Pulses: 0 Carotid (R), 0 Carotid (L) Gastrointestinal: normal bowel sounds, non tender, soft, no organomegaly, no pulsatile mass Rectal: deferred Back: normal inspection Extremities: normal range of motion, non-tender, no pedal edema Neurologic/Psychiatric: home manager II-XII nml as tested, no motor/sensory deficits, alert, normal mood/affect, oriented x 3 Skin: warm/dry Assessment/Plan Assessment/Plan Admission Diagnosis/Plan CORONARY ARTERY DISEASE UNCONTROLLED DIABETES MELLITUS HYPERLIPIDEMIA HYPERTRIGLYCERIDEMIA CHRONIC DIABETIC FOOT WOUNDS DEPRESSION LUIS IS WELL KNOWN TO ME, HE HAS HISTORY OF EXTREME NON COMPLIANCE WITH HIS DIABETIC REGIMEN. FOR THE PAST YEAR HE HAS BEEN A LITTLE MORE DILIGENT WITH HIS COMPLIANCE, HOWEVER HE STILL HAS POORLY CONTROLLED DIABETES. HE WILL BE RESTARTED ON HIS DIABETIC REGIMEN. TODAY WE DISCUSSED THAT UPON DISCHARGE, WE WILL LOOK INTO A CONTINUOUS GLUCOSE MONITOR FOR HIM AND HOPEFULLY WE CAN GET HIS INSURANCE TO COVER THIS - HE NEEDS MORE ACCOUNTABILITY WITH HIS DIABETES FOR IMPROVED CONTROL AND HOPEFULLY IMPROVED QUALITY OF LIFE WITH LESS DIABETIC COMPLICATIONS. HYPERLIPIDEMIA, HYPERTRIGLYCERIDEMIA - PT ON STATIN - HE HAS HISTORY OF STATIN INTOLERANCE AND THEN NON COMPLIANCE WITH THE MEDICATION - AN OUTPATIENT, WE NEED TO CONSIDER REPATHA. CORONARY ARTERY DISEASE - WITH LAD OCCLUSION - DEFER TO DR. RANKIN - WE WILL POSSIBLY TRANSFER LUIS TO [facility] FOR FURTHER ATTEMPTS AT OPENING HIS BLOCKED VESSELS. THANK YOU FOR THE CONSULT Admission Status: Other (Same Day Surgery) Clinical Quality Measures DVT/VTE Risk/Contraindication: Risk Factor Score Per Nursin RFS Level Per Nursing on Admit: 1=Low/No VTE PPX ROSA MARIA PRADO MD May 16, 2018 09:08
[2018-05-16] MEDS: TICAGRELOR 90 MG TABLET (BRILINTA) PO SCH (09:24)
[2018-05-16] MEDS ORDERED: PANTOPRAZOLE 40 MG (PROTONIX) TAB PO SCH (10:00)
--- NOTE | 2018-05-16 12:20 | Diagnostic Imaging Report ---
INDICATION: Dyspnea. TECHNIQUE: Single view chest at 3:23 AM. CORRELATION STUDY: 03/25/2018 FINDINGS: Limited depth of inspiration. Given this, the heart size is enlarged. Vasculature overall within normal limits. The lungs appear generally clear. The previously noted left-sided central line is not visualized. IMPRESSION: 1. Cardiac enlargement without failure. Limited depth of inspiration. Dictated by: Dictated on workstation # [id number]
--- NOTE | 2018-05-16 12:44 | Cardiology Progress Note ---
Cardiology SOAP Progress Note Subjective: Still having chest pressure/pain. Objective: I&O/Vital Signs 05/16/18 05/16/18 05/16/18 05/16/18 03:00 04:00 04:00 05:00 Pulse 68 69 75 Resp 14 24 19 B/P (MAP) 104/72 (83) 114/81 (92) 125/93 (104) Pulse Ox 95 96 97 98 O2 Delivery Nasal Cannula Room Air Nasal Cannula Room Air O2 Flow Rate 1.00 2.00 1.00 05/16/18 05/16/18 05/16/18 05/16/18 06:00 07:00 07:00 08:00 Pulse 72 70 70 77 Resp 14 15 30 B/P (MAP) 115/72 (86) 109/73 (85) 125/82 (96) Pulse Ox 93 97 96 O2 Delivery Room Air Room Air Room Air 05/16/18 05/16/18 05/16/18 05/16/18 08:00 09:00 10:00 11:00 Pulse 86 93 76 Resp 45 10 9 B/P (MAP) 111/92 (98) 99/66 (77) 106/71 (83) Pulse Ox 96 96 95 96 O2 Delivery Room Air Room Air Room Air Room Air 05/16/18 05/16/18 05/16/18 12:00 12:00 13:00 Temp 98.3 Pulse 80 87 Resp 9 10 B/P (MAP) 95/69 (78) 118/90 (99) Pulse Ox 96 93 99 O2 Delivery Room Air Room Air 05/16/18 00:00 Intake Total 1780 ml Output Total 700 ml Balance 1080 ml Weight (Pounds): 255 Weight (Ounces): 0.0 Weight (Calculated Kilograms): 115.984559 Constitutional: appears stated age, AAO x 3, apparent distress, well-developed , well-nourished Respiratory: No accessory muscle use, No respiratory distress, No chest tender , No chest expansion is symmetric; chest is bilaterally symmetric; No lungs clear to percussion; lungs clear to auscultation; No crackles, No rhonchi, No rales, No stridor, No wheezing, No pleural rub, No other Cardiovascular: regular rate-rhythm; No irregularly irregular, No extra beats, No parasternal heave is noted, No JVD, No edema, No bradycardia, No tachycardia , No point of maximal impulse, No cardiac thrills are palpable; S1 and S2; No gallop/S3, No gallop/S4, No diastolic murmur, No systolic murmur, No friction rub, No click, No other Gastrointestional: No spleenomegaly Extremities: No normal range of motion, No non-tender, No normal inspection, No pedal edema, No calf tenderness, No normal capillary refill, No pelvis stable , No calf tenderness, No inflammation, No pedal edema, No slow capillary refill , No swelling, No other, No abrasion, No clubbing, No cyanosis, No ecchymosis, No laceration, No no lower extremity edema bilateral, No significant edema, No tenderness, No wound Neurologic/Psychiatric: alert, oriented x 3, power is 5/5 both on sides Skin: No normal color, No warm/dry, No cyanosis, No cool, No diaphoresis, No damp, No ecchymosis, No jaundice, No mottled, No pallor, No rash, No tattoos/ piercings, No ulcerations, No rash on exposed areas, No ulcerations on exposed areas, No other Results/Procedures: Labs Laboratory Tests 05/15/18 14:32: Glucometer 234H 05/15/18 20:29: Glucometer 309H 05/16/18 03:50: White Blood Count 6.6, Red Blood Count 4.88, Hemoglobin 15.1, Hematocrit 42, Mean Corpuscular Volume 85, Mean Corpuscular Hemoglobin 31, Mean Corpuscular Hemoglobin Concent 36, Red Cell Distribution Width 13.1, Platelet Count 120L, Mean Platelet Volume 10.7H, Neutrophils (%) (Auto) 54, Lymphocytes (%) (Auto) 36 , Monocytes (%) (Auto) 9, Eosinophils (%) (Auto) 1, Basophils (%) (Auto) 0, Neutrophils # (Auto) 3.6, Lymphocytes # (Auto) 2.4, Monocytes # (Auto) 0.6, Eosinophils # (Auto) 0.1, Basophils # (Auto) 0.0, Sodium Level 137, Potassium Level 4.2, Chloride Level 105, Carbon Dioxide Level 23, Anion Gap 9, Blood Urea Nitrogen 19H, Creatinine 1.12, Estimat Glomerular Filtration Rate > 60, BUN/ Creatinine Ratio 17, Glucose Level 174H, Calcium Level 8.4L, Phosphorus Level 2.9, Magnesium Level 2.1, Troponin I 16.33*H, Triglycerides Level 915H, Cholesterol Level 322H, LDL Cholesterol Direct 138H, VLDL Cholesterol , HDL Cholesterol 29L 05/16/18 10:41: Glucometer 238H A/P: Assessment/Dx: Acute coronary syndrome, Diabetes, Hyponatremia, High hemoglobin and hematocrit, Hypertension, hyperlipidemia Plan: Acute coronary syndrome: Continue aspirin, Brilinta. Continue IV Integrilin. Still having pain. Will transfer to [facility] for likely intervention to MACHINE SNELLER LAD lesion. Discussed with principal secretary refrigeration insulator who accepted the patient for transfer. Hyponatremia: Likely secondary to psychotropic medications. Diabetes: Continue insulin. Dr. Ha's consultation is appreciated. High hemoglobin and hematocrit. Hypertension and hyperlipidemia- statin intolerant. Cough with lisinopril. Blood pressure borderline therefore valsartan not started. Hypertriglyceridemia: Fenofibrate. Thank you for your consultation. Please call me if you have any questions. Casper Brennan MD, FACP, FACC, FSCAI, FHRS, CCDS Interventional Cardiology Cardiac Electrophysiology Vascular Medicine and Endovascular Interventions Chris BRENNAN MD May 16, 2018 12:44 pm
[2018-05-16] MEDS ORDERED: LORazepam INJ 2 MG/ML (ATIVAN) VIAL IVP ONE (13:00)
--- NOTE | 2018-05-16 14:24 | Cardiology Discharge Summary ---
Diagnosis/Chief Complaint Date of Admission 05/15/2018 Date of Discharge 05/16/2018 Admission Diagnosis Non-ST elevation [place] Final/Discharge Diagnosis Non-ST elevation [place] refractory to medical therapy, PCI to COSTUME DESIGN TEACHER of the LAD is recommended Chief Complaint/HPI Chief Complaint/HPI This is a 57-year-old gentleman with no past history of cardiac pathology. He does have history of hypertension and hyperlipidemia. He also has history of insulin dependent diabetes. He is having substernal chest pain radiating to the left arm. Moderate intensity. He has been having chest pain for 7-8 hours before admission. Also complains of shortness of breath, sweating and nausea. No other symptoms. Discharge Summary Procedures Coronary angiography showed chronic total occlusion of mid LAD and ostial OM1 artery. Unsuccessful attempt at PCI. Severe hazy looking stenosis of ostial OM 2 which was treated with a drug-eluting stent. LV gram showed apical akinesis. Discharge Physical Examination Stable cardiovascular examination. Hospital Course Patient was continued on IV Integrilin overnight. Second troponin done almost 12 hours since the patient has been having chest pain was 0.6. Troponin done this morning was 16. EKG shows sinus rhythm with Q waves in the anterior precordial leads with persistent ST elevation however better than on admission. Patient continued to have chest discomfort at rest. Pending Labs Laboratory Tests 05/16/18 10:41: Glucometer 238 Discussion & Recommendations Discussion The patient likely had chronic total occlusion of the LAD with persistent ST elevation due to dyskinetic apex. Worsening of ST segment elevation could be secondary to either loss of collaterals from left circumflex artery or occlusion of a small channel which may have been providing some blood flow to the distal LAD. It is unlikely that the mid LAD occlusion is acute since even after 8 hours of severe pain the first troponin was negative. The second troponin done after 12 hours of pain was 0.6. I would have expected that if this is an acute occlusion of the LAD causing ST injury pattern, his troponin levels should have been much higher. Severe ostial OM 2 stenosis were treated with drug-eluting stent with improvement in chest pain during coronary angiography, suggesting that it could be the culprit lesion. However discomfort recurred once the patient went back to the ICU. I discussed at length with the patient and family. I also discussed the case with my senior svp. And my decision was that the patient may need the LAD to be intervened on, however since it has been chronically occluded very likely, I would like that intervention to be done in a hospital with cardiac surgery backup. Therefore I called [facility] and spoke to his rail switchman supervisor photocomposition who accepted the patient for transfer to their ICU. Patient will continue dual antiplatelet therapy. Continue IV Integrilin. Hypertriglyceridemia: Fenofibrate. Hyperlipidemia: Patient was previously intolerant to statins. Might require ezetimibe and/or Repatha. Follow up appt.: Follow-up with my office after discharge from [facility]. Follow-up at Dr. Ha as well. Dicharge Diet: Cardiac Diet Activity as Tolerated: Yes Home Medications Reviewed patient Home Medication Reconciliation performed by pharmacy medication reconciliations emissions testing and repair technician and/or nursing. Patients Allergies have been reviewed. Discharge Home Medications: Reviewed and agree with Discharge Medication list on patient's Discharge Instruction sheet Condition at discharge Guarded prognosis. Instructions to patient/family Discussed at length with the patient and family. They understand and every aspect of the care and the need to transfer to [facility] in [place]. Clinical Quality Measures DVT/VTE Risk/Contraindication: Risk Factor Score Per Nursin RFS Level Per Nursing on Admit: 1=Low/No VTE PPX Chris RANKIN MD May 16, 2018 2:24 pm
[2018-05-16] MEDS ORDERED: FENOFIBRATE 134 MG (LOFIBRA) CAPSULE PO SCH (21:00)
[2018-05-16] MEDS ORDERED: ATORVASTATIN 80 MG (LIPITOR) TABLET PO SCH (21:00)
== END 2018-05-16 13:37 | disposition short-term general hospital (02) ==
LOC: EDUNIT# 10:26 → ER 10:29 → CATH 10:49 → ICU 13:00 → CATH 05-16 13:37 → ICU 05-16 14:14
PROVIDERS: ATTEND Internal Medicine Interventional Cardiology
DX: I21.4 Non-ST elevation (NSTEMI) myocardial infarction (principal); I25.10 Atherosclerotic heart disease of native coronary artery without angina pectoris; E87.1 Hypo-osmolality and hyponatremia; I10 Essential (primary) hypertension; E78.5 Hyperlipidemia, unspecified; E78.1 Pure hyperglyceridemia; E11.40 Type 2 diabetes mellitus with diabetic neuropathy, unspecified; Z79.4 Long term (current) use of insulin; Z79.899 Other long term (current) drug therapy
CPT/HCPCS: 36221; 36415; 71045; 80048; 80053; 80061; 82150; 82962; 83690; 83735; 83874; 83880; 84100; 84484; 85025; 85347; 85610; 85730; 93005; 93041; 93306; 93458; 96374

== ENCOUNTER 2018-05-28 11:50 | Inpatient (IN) | payer OTHER ==
[~2018-05-28] VITALS: Ht 193 cm; Wt 117.3 kg
[2018-05-28 11:50] VITALS: BP 126/81
[~2018-05-28 11:50] MED LIST changes: +DULO30CA48 PO; +MELO15TA39 PO; +PREG50CA2 PO
--- OUTSIDE RECORDS SUMMARY | 2018-05-28 12:14 | XMS REPORT | Clinical Summary ---
Author Author [facility] Organization [facility] Address Unknown Phone Unavailable Care Team Providers Care Plant And Machinery Valuer Name Role Phone Gordo Ferguson MD Unavailable Gildardo Craig MD PCP Georgina Roberts RN Unavailable Unavailable Bren Howard RN Unavailable Unavailable Rohini Muniz DO Unavailable Unavailable Source Comments Some departments are not documenting in the electronic medical record. If you do not see the information that you expected, contact Release of Information in the Health Information Management department at [phone] for further assistance in locating additional records.[facility] Allergies No Known Allergies Current Medications Prescription Sig. [...] 08/30/2013 Ventral hernia 08/13/2013 Abdominal pain 08/11/2013 Immunizations Name Dates Previously Given Next Due Flu Vaccine Trivalent=>3 08/31/2013 Yo (Preservative Free) Social History Tobacco Use Types Packs/Day Years Used Date Never Smoker Smokeless Tobacco: Never Used Alcohol Use Drinks/Week oz/Week Comments No Sex Assigned at Date Recorded Not on file Last Filed Vital Signs Vital Sign Reading Time Taken Blood Pressure 146/79 11/17/2013 3:22 PM BOILER REPAIRMAN Pulse 100 11/17/2013 3:22 PM BOILER REPAIRMAN Temperature 36.2 C (97.1 F) 11/17/2013 3:22 PM BOILER REPAIRMAN Respiratory Rate 20 11/17/2013 3:22 PM BOILER REPAIRMAN Oxygen Saturation 99% 09/20/2013 9:44 PM BOILER REPAIRMAN Inhaled Oxygen - - Concentration Weight 116.1 kg (256 lb) 11/17/2013 3:22 PM BOILER REPAIRMAN Height 188 cm (6' 2") 11/17/2013 3:22 PM BOILER REPAIRMAN Body Mass Index 32.87 11/17/2013 3:22 PM BOILER REPAIRMAN Plan of Treatment Health Maintenance Due Date Last Done Comments HEPATITIS C SCREENING 1962 PHYSICAL (COMPREHENSIVE) 1969 EXAM PERTUSSIS VACCINE 1973 HIV SCREENING 1977 TETANUS VACCINE 1979 COLORECTAL CANCER 2012 SCREENING SHINGLES RECOMBINANT 2012 VACCINE (1 of 2) INFLUENZA VACCINE 08/05/2018 08/31/2013 Results Not on filefrom Last 3 Months
--- OUTSIDE RECORDS SUMMARY | 2018-05-28 12:17 | XMS REPORT | CCD ---
Author Author Madeline Kenneyd MD, [facility] Address [address] [place] [address] Phone Care Team Providers Care Instrument And Control Technician Name Role Phone PP Unavailable CCM Unavailable Summary Purpose Interface Exchange Insurance Providers Payer name Policy type / Coverage type Covered constitution party ID Effective Begin Date Effective End Date Blue Cross Blue Shield [facility] Blue Cross/Blue Shield [id number] Unknown Family history Father Diagnosis Age At Onset Hyperlipidemia Unknown Heart Attack Unknown Mother Diagnosis Age At Onset Hypertension Unknown Social History Social History Element Codes Description Effective Dates Marital status Unknown Mignon 01/20/2016 Number of children Unknown 4 01/20/2016 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/[address]: 107915976 Never smoker 01/20/[address]: 943814427 Never drinks alcohol 01/20/2016 Allergies, Adverse Reactions, Alerts Allergies, Adverse Reactions, Alerts data not found Past Medical History Illness Codes Condition Status Onset Date Resolved Date Other fatigue ICD-9: 780.79 ICD-10: R53.83 Active 08/27/2017 Unknown Other malaise ICD-9: 780.79 ICD-10: R53.81 Active 08/27/2017 Unknown Pain in left shoulder ICD-9: 719.41 ICD-10: M25.512 Active 08/27/2017 Unknown Pain in right shoulder ICD-9: 719.41 ICD-10: M25.511 Active 08/27/2017 Unknown Essential (primary) hypertension ICD-9: 401.1 ICD-10: I10 Active 03/01/2017 Unknown Type 2 diabetes mellitus with hyperglycemia ICD-9: 250.00 ICD-10: E11.65 Active 06/21/2016 Unknown VACCIN FOR INFLUENZA ICD-9: V04.81 ICD-10: Z23 Active 08/16/2017 Unknown Zoster without complications ICD-9: 053.9 ICD-10: B02.9 Active 07/26/2017 Unknown Cellulitis of right lower limb ICD-9: 682.7 ICD-10: L03.115 Active 10/12/2016 Unknown Laceration without foreign body of left forearm, initial encounter ICD-9: 881.00 ICD-10: S51.812A Active 06/29/2017 Unknown Dysuria ICD-9: 788.1 ICD-10: R30.0 Active 06/21/2017 Unknown Type 2 diabetes mellitus with foot ulcer ICD-9: 250.80 ICD-10: E11.621 Active 10/08/2016 Unknown Acute laryngopharyngitis ICD-9: 465.0 ICD-10: J06.0 Active 06/07/2017 Unknown Gastro-esophageal reflux disease without esophagitis ICD-9: 530.81 ICD-10: K21.9 Active 06/07/2017 Unknown Insect bite (nonvenomous) of abdominal wall, initial encounter ICD-9: 911.4 ICD-10: S30.861A Active 05/17/2017 Unknown Diabetes Unknown Active 05/04/2017 Unknown Allergic contact dermatitis due to plants, except food ICD-9: 692.6 ICD-10: L23.7 Active 01/19/2016 Unknown Cough ICD-9: 786.2 ICD-10: R05 Active 02/16/2017 Unknown Acute recurrent maxillary sinusitis ICD-9: 461.0 ICD-10: J01.01 Active 02/16/2017 Unknown Nasal congestion ICD-9 : 478.19 ICD-10: R09.81 Active 02/16/2017 Unknown Disorientation, unspecified ICD-9: 293.0 ICD-10: R41.0 Active 01/29/2017 Unknown Muscle weakness (generalized) ICD-9: 728.87 ICD-10: M62.81 Active 01/29/2017 Unknown Pain in right foot ICD -9: 729.5 ICD-10: M79.671 Active 10/08/2016 Unknown Low back pain ICD-9: 724.2 ICD-10: M54.5 Active 07/17/2016 Unknown Other deformities of toe(s) (acquired), left foot ICD-9: 735.5 ICD-10: M20.5X2 Active 07/17/2016 Unknown Mixed hyperlipidemia ICD-9: 272.2 ICD-10: E78.2 Active 05/22/2016 Unknown Other hemoglobinopathies ICD-9: 282.7 ICD-10: D58.2 Active 05/22/2016 Unknown Encounter for general adult medical examination without abnormal findings ICD-9: V70.0 ICD-10: Z00.00 Active 05/16/2016 Unknown Dehydration ICD-9: 276.51 ICD-10: E86.0 Active 05/14/2016 Unknown Type 2 diabetes mellitus with other specified complication ICD-9: 250.80 ICD-10: E11.69 Active 05/14/2016 Unknown Problems Condition Codes Effective Dates Condition Status Other fatigue ICD-9: 780.79 ICD-10: R53.83 08/27/2017 Active Other malaise ICD-9: 780.79 ICD-10: R53.81 08/27/2017 Active Pain in left shoulder ICD-9: 719.41 ICD-10: M25.512 08/27/2017 Active Pain in right shoulder ICD-9: 719.41 ICD-10: M25.511 08/27/2017 Active Essential (primary) hypertension ICD-9: 401.1 ICD-10: I10 03/01/2017 Active Type 2 diabetes mellitus with hyperglycemia ICD-9: 250.00 ICD-10: E11.65 06/21/2016 Active VACCIN FOR INFLUENZA ICD-9: V04.81 ICD-10: Z23 08/16/2017 Active Zoster without complications ICD-9: 053.9 ICD-10: B02.9 07/26/2017 Active Cellulitis of right lower limb ICD-9: 682.7 ICD-10: L03.115 10/12/2016 Active Laceration without foreign body of left forearm, initial encounter ICD-9: 881.00 ICD-10: S51.812A 06/29/2017 Active Dysuria ICD-9: 788.1 ICD-10: R30.0 06/21/2017 Active Type 2 diabetes mellitus with foot ulcer ICD-9: 250.80 ICD-10: E11.621 10/08/2016 Active Acute laryngopharyngitis ICD-9: 465.0 ICD-10: J06.0 06/07/2017 Active Gastro-esophageal reflux disease without esophagitis ICD-9: 530.81 ICD-10: K21.9 06/07/2017 Active Insect bite (nonvenomous) of abdominal wall, initial encounter ICD-9: 911.4 ICD-10: S30.861A 05/17/2017 Active Diabetes Unknown 05/04/2017 Active Allergic contact dermatitis due to plants, except food ICD-9: 692.6 ICD-10: L23.7 01/19/2016 Active Cough ICD-9: 786.2 ICD-10: R05 02/16/2017 Active Acute recurrent maxillary sinusitis ICD-9: 461.0 ICD-10: J01.01 02/16/2017 Active Nasal congestion ICD-9 : 478.19 ICD-10: R09.81 02/16/2017 Active Disorientation, unspecified ICD-9: 293.0 ICD-10: R41.0 01/29/2017 Active Muscle weakness (generalized) ICD-9: 728.87 ICD-10: M62.81 01/29/2017 Active Pain in right foot ICD -9: 729.5 ICD-10: M79.671 10/08/2016 Active Low back pain ICD-9: 724.2 ICD-10: M54.5 07/17/2016 Active Other deformities of toe(s) (acquired), left foot ICD-9: 735.5 ICD-10: M20.5X2 07/17/2016 Active Mixed hyperlipidemia ICD-9: 272.2 ICD-10: E78.2 05/22/2016 Active Other hemoglobinopathies ICD-9: 282.7 ICD-10: D58.2 05/22/2016 Active Encounter for general adult medical examination without abnormal findings ICD-9: V70.0 ICD-10: Z00.00 05/16/2016 Active Dehydration ICD-9: 276.51 ICD-10: E86.0 05/14/2016 Active Type 2 diabetes mellitus with other specified complication ICD-9: 250.80 ICD-10: E11.69 05/14/2016 Active Medications Medication Codes Instructions Start Date Stop Date Status Fill Instructions Tamiflu 75 mg capsule RxNorm: 182619 1 Capsule(s) PO BID 201712/03/2017 Active doxycycline hyclate 100 mg capsule RxNorm: 9207856 1 Capsule(s) PO BID 09/07/2017 09/20/2017 Inactive doxycycline hyclate 100 mg capsule RxNorm: 4967309 1 Capsule(s) PO BID 08/27/2017 09/06/2017 Inactive prednisone 20 mg tablet RxNorm: 014837 2 Tablet(s) PO daily 08/31/2017 Inactive clopidogrel 75 mg tablet RxNorm: 082012 1 Tablet(s) PO daily 02/19/2018 Active atorvastatin 40 mg tablet RxNorm: 457501 1 Tablet(s) PO QHS 02/19/2018 Active losartan 25 mg tablet RxNorm: 310815 TAKE ONE TABLET BY MOUTH DAILY 08/22/2017 02/17/2018 Active Toujeo SoloStar 300 unit/mL (1.5 mL) subcutaneous insulin pen RxNorm: 1129255 45 Unit(s) daily 08/17/2017 08/20/2017 Inactive mupirocin 2 % topical ointment RxNorm: 820504 1 Application TOP TID to the lesions on chest 08/16/2017 08/25/2017 Inactive Toujeo SoloStar 300 unit/mL (1.5 mL) subcutaneous insulin pen RxNorm: 3793332 40 Unit(s) daily 08/16/2017 08/16/2017 Inactive valacyclovir 1 gram tablet RxNorm: 175861 1 Tablet(s) PO TID 08/01/2017 Inactive clonazepam 1 mg tablet RxNorm: 067708 1 Tablet(s) PO Q8 as needed 07/03/2017 09/30/2017 Inactive Levaquin 500 mg tablet RxNorm: 935249 1 Tablet(s) PO daily 06/25/2017 Inactive Levaquin 500 mg tablet RxNorm: 311614 1 Tablet(s) PO daily 06/21/2017 Inactive losartan 25 mg tablet RxNorm: 849391 1 Tablet(s) PO daily 201608/16/2017 Inactive nystatin 100,000 unit/mL oral suspension RxNorm: 437044 5 Milliliter(s) PO QID Swish et swallow 06/18/2017 06/17/2017 Inactive nystatin 100,000 unit/mL oral suspension RxNorm: 897101 5 Milliliter(s) PO QID Swish et swallow 06/18/2017 06/27/2017 Inactive Cipro 500 mg tablet RxNorm: 769401 1 Tablet(s) PO BID 201606/18/2017 Inactive Cipro 500 mg tablet RxNorm: 087257 1 Tablet(s) PO BID 201606/11/2017 Inactive Toujeo SoloStar 300 unit/mL (1.5 mL) subcutaneous insulin pen RxNorm: 7378290 INJECT 10 UNITS UNDER THE SKIN DAILY 06/12/2017 08/15/2017 Inactive Keflex 500 mg capsule RxNorm: 145637 1 Capsule(s) PO TID 201606/13/2017 Inactive doxycycline hyclate 100 mg capsule RxNorm: 9958586 1 Capsule(s) PO BID 05/17/2017 05/21/2017 Inactive doxycycline hyclate 100 mg capsule RxNorm: 1246405 1 Capsule(s) PO BID 05/11/2017 05/16/2017 Inactive losartan 25 mg tablet RxNorm: 782245 1 Tablet(s) PO daily 201606/17/2017 Inactive atorvastatin 40 mg tablet RxNorm: 536341 1 Tablet(s) PO daily 03/01/2017 08/23/2017 Inactive clopidogrel 75 mg tablet RxNorm: 918236 1 Tablet(s) PO daily 08/23/2017 Inactive Flonase Allergy Relief 50 mcg/actuation nasal spray, suspension RxNorm: 1997050 2 Ralph NASAL daily 02/16/20172016 Inactive Augmentin 875 mg-125 mg tablet RxNorm: 735556 1 Tablet(s) PO BID 02/16/2017 02/22/2017 Inactive GET PROBIOTIC TO TAKE WHILE ON ABX Tamiflu 75 mg capsule RxNorm: 371459 1 Capsule(s) PO BID 201602/20/2017 Inactive ceftriaxone 500 mg solution for injection RxNorm: 3513073 1 Milliliter(s) Inj 02/16/2017 02/16/2017 Inactive Kenalog 40 mg/mL suspension for injection RxNorm: 1389659 1 Milliliter(s) Inj 02/16/2017 02/16/2017 Inactive Toujeo SoloStar 300 unit/mL (1.5 mL) subcutaneous insulin pen RxNorm: 2277503 25 Unit(s) SQ QAM 02/12/2017 06/10/2017 Inactive Toujeo SoloStar 300 unit/mL (1.5 mL) subcutaneous insulin pen RxNorm: 1763571 10 Unit(s) SQ QAM 02/05/2017 02/11/2017 Inactive lisinopril 10 mg tablet RxNorm: 611820 1 Tablet(s) PO daily 02/28/2017 Inactive atorvastatin 40 mg tablet RxNorm: 901863 1 Tablet(s) PO daily 02/01/2017 02/28/2017 Inactive doxycycline hyclate 100 mg capsule RxNorm: 3013281 1 Capsule(s) PO BID 02/01/2017 02/10/2017 Inactive clonazepam 1 mg tablet RxNorm: 452846 1 Tablet(s) PO Q8 as needed 10/09/2016 01/05/2017 Inactive ceftriaxone 1 gram solution for injection RxNorm: 1746408 Inj 10/06/2016 10/06/2016 Inactive cyclobenzaprine 10 mg tablet RxNorm: 174389 1/2-1 Tablet(s) PO TID PRN 07/18/2016 01/28/2017 Inactive clonazepam 1 mg tablet RxNorm: 939623 1 Tablet(s) PO Q8 as needed 05/31/2016 05/29/2016 Inactive clonazepam 1 mg tablet RxNorm: 810662 1 Tablet(s) PO Q8 as needed 05/31/2016 08/28/2016 Inactive Toujeo SoloStar 300 unit/mL (1.5 mL) subcutaneous insulin pen RxNorm: 4677542 10 Unit(s) SQ daily 05/23/2016 01/28/2017 Inactive Crestor 10 mg tablet RxNorm: 812717 1 Tablet(s) PO QHS 201501/28/2017 Inactive Crestor 10 mg tablet RxNorm: 102042 1 Tablet(s) PO QHS 201505/18/2016 Inactive clonazepam 1 mg tablet RxNorm: 484779 1 Tablet(s) PO Q8 as needed 04/25/2016 05/30/2016 Inactive prednisone 20 mg tablet RxNorm: 614858 3 Tablet(s) PO daily 06/201602/10/2016 Inactive prednisone 20 mg tablet RxNorm: 809025 3 Tablet(s) PO daily 06/201605/14/2016 Inactive Kenalog 40 mg/mL suspension for injection RxNorm: 9760571 Milliliter(s) Inj 01/20/2016 01/20/2016 Inactive acetaminophen 500 mg tablet RxNorm: 452088 1-2 Tablet(s) PO as needed No Start Date Active clopidogrel 75 mg tablet RxNorm: 617582 1 Tablet(s) PO daily No Start Date 02/28/2017 Inactive clonazepam 1 mg tablet RxNorm: 127796 1 Tablet(s) PO QHS No Start Date 04/24/2016 Inactive acyclovir 400 mg tablet RxNorm: 558196 2 Tablet(s) PO 5x daily No Start Date 02/28/2017 Inactive Medication Administered Medication Codes Instructions Start Date Status ceftriaxone 500 mg solution for injection RxNorm: 6369805 1Milliliter 02/16/2017 No longer Active Kenalog 40 mg/mL suspension for injection RxNorm: 8266516 1Milliliter 02/16/2017 No longer Active ceftriaxone 1 gram solution for injection RxNorm: 0407216 10/06/2016 No longer Active Kenalog 40 mg/mL suspension for injection RxNorm: 1591104 Milliliter 01/20/2016 No longer Active Immunizations Vaccine Codes Date Status Influenza CVX: 141 08/16/2017 completed Assessments Condition Codes Effective Dates Pain in left shoulder ICD-10: M25.512 ICD-9: 719.41 08/27/2017 Other fatigue ICD-10: R53.83 ICD-9: 780.79 08/27/2017 Other malaise ICD-10: R53.81 ICD-9: 780.79 08/27/2017 Pain in right shoulder ICD-10: M25.511 ICD-9: 719.41 08/27/2017 Type 2 diabetes mellitus with hyperglycemia ICD-10: E11.65 ICD-9: 250.00 08/16/2017 Essential (primary) hypertension ICD-10: I10 ICD-9: 401.1 08/16/2017 VACCIN FOR INFLUENZA ICD-10: Z23 ICD-9: V04.81 08/16/2017 Zoster without complications ICD-10: B02.9 ICD-9: 053.9 07/26/2017 Cellulitis of right lower limb ICD-10: L03.115 ICD-9: 682.7 07/03/2017 Laceration without foreign body of left forearm, initial encounter ICD-10: S51.812A ICD-9: 881.00 06/29/2017 Dysuria ICD-10: R30.0 ICD-9: 788.1 06/21/2017 Type 2 diabetes mellitus with foot ulcer ICD-10: E11.621 ICD-9: 250.80 06/18/2017 Gastro-esophageal reflux disease without esophagitis ICD-10 : K21.9 ICD-9: 530.81 06/07/2017 Acute laryngopharyngitis ICD-10: J06.0 ICD-9: 465.0 06/07/2017 Insect bite (nonvenomous) of abdominal wall, initial encounter ICD-10: S30.861A ICD-9: 911.4 05/17/2017 Allergic contact dermatitis due to plants, except food ICD- 10: L23.7 ICD-9: 692.6 05/04/2017 Cough ICD-10: R05 ICD-9: 786.2 03/01/2017 Acute recurrent maxillary sinusitis ICD-10: J01.01 ICD-9: 461.0 02/16/2017 Nasal congestion ICD-10: R09.81 ICD-9: 478.19 02/16/2017 Muscle weakness (generalized) ICD-10: M62.81 ICD-9: 728.87 02/05/2017 Disorientation, unspecified ICD-10: R41.0 ICD-9: 293.0 02/05/2017 Pain in right foot ICD-10: M79.671 ICD-9: 729.5 10/09/2016 Other deformities of toe(s) (acquired), left foot ICD-10: M20.5X2 ICD-9: 735.5 07/18/2016 Low back pain ICD-10: M54.5 ICD-9: 724.2 07/18/2016 Other hemoglobinopathies ICD-10: D58.2 ICD-9: 282.7 05/23/2016 Mixed hyperlipidemia ICD-10: E78.2 ICD-9: 272.2 05/23/2016 Encounter for general adult medical examination without abnormal findings ICD-10: Z00.00 ICD-9: V70.0 05/17/2016 Dehydration ICD-10: E86.0 ICD-9: 276.51 05/15/2016 Type 2 diabetes mellitus with other specified complication ICD-10: E11.69 ICD-9: 250.80 05/15/2016 Reason For Visit Reason For Visit Effective Dates Notes fatigue 08/27/2017 diabetes mellitus 08/16/2017 rash 07/26/2017 Post-op wound 07/03/2017 laceration of the arm 06/29/2017 Post-op wound 06/18/2017 sore throat 06/07/2017 hyperglycemia 05/17/2017 rash 05/04/2017 cough 03/15/2017 cough 03/01/2017 dyspnea 02/16/2017 diabetes mellitus 02/12/2017 Hospital Follow Up 02/05/2017 possible stroke arm pain 01/29/2017 foot pain 10/09/2016 foot pain 10/06/2016 back pain 07/18/2016 diabetes mellitus 06/22/2016 diabetes mellitus 05/23/2016 fatigue 05/15/2016 anxiety 01/20/2016 Results Observation Observation Code Item Item Code Result Date [place] Spotted Fever Igg/Igm 908192 FEI MT SPOTTED FEVER IGM EIA . 09/05/2017 [place] Spotted Fever Igg/Igm 561409 RMSF, IGM 0.17 index 09/05/2017 [place] Spotted Fever Igg/Igm 441634 FEI MT SPOTTED FEVER IGG EIA FLEX . 09/05/2017 [place] Spotted Fever Igg/Igm 296187 RMSF, IGG SCREEN-FLEX Positive 09/05/2017 Fei Mtn Spot'D Fev Igg 096255 RMSF, IGG -TITER IFA <1:64 11/2016 Ehrlichia Chaffeensis Antibody Igm 887776 EHRLICHIA CHAFFEENSIS IGM < 1:16 09/03/2017 Ehrlichia Chaffeensis Antibody Igg 814480 EHRLICHIA CHAFFEENSIS IGG <1:64 09/03/2017 Lymes Disease Total Antibodies With Western Blot Reflex B. BURGDORFERI, IGG/IGM 0.223 08/30/2017 Lymes Disease Total Antibodies With Western Blot Reflex C-Reactive Protein Qnt Crqnt CRP 0.00 mg/dl 08/27/2017 Sed Rate Ord21 ESR 8 mm/hr 08/27/2017 Comp Metabolic Hrp292 NA 135 mEq/L 08/16/2017 Comp Metabolic Jxd780 K 4.1 mEq/L 08/16/2017 Comp Metabolic Vjh432 CL 98 mEq/L 08/16/2017 Comp Metabolic Jgw934 CO2 28.0 mEq/L 08/16/2017 Comp Metabolic Vea313 ANION GAP 13 08/16/2017 Comp Metabolic Dum867 GLUCOSE 299 mg/dL 08/16/2017 Comp Metabolic Dlt942 Creat 0.9 mg/dL 08/16/2017 Comp Metabolic Yji702 eGFR 90 ml/min/1.73m2 08/16/2017 Comp Metabolic Pjb060 BUN 20 mg/dL 08/16/2017 Comp Metabolic Dab406 B/C Ratio 21.5 Ratio 08/16/2017 Comp Metabolic Yqs590 CALCIUM 9.2 mg/dL 08/16/2017 Comp Metabolic Xsw648 ALK PHOS 84 U/L 08/16/2017 Comp Metabolic Wvi370 AST(SGOT) 19 U/L 08/16/2017 Comp Metabolic Qgb885 ALT(SGPT) 24 U/L 08/16/2017 Comp Metabolic Ruv014 BILI T 1.1 mg/dL 08/16/2017 Comp Metabolic Ymg822 ALBUMIN 4.2 g/dL 08/16/2017 Comp Metabolic Zkf009 TPRO 7.2 g/dL 08/16/2017 Comp Metabolic Eqd034 GLOB 3.0 g/dL 08/16/2017 Comp Metabolic Cqq000 A/G Ratio 1.4 Ratio 08/16/2017 Comp Metabolic Nih310 Osmo 284 mOsmo 08/16/2017 %Hba1C Tle124 % HbA1c 33162-3 12.5 % 08/16/2017 %Hba1C Gwh087 Gluc Ave 312 mg/dL 08/16/2017 Urine Culture Ucult Complete NO Growth Day 2 06/23/2017 Urine Culture Ucult Preliminary NO Growth Day 1 06/23/2017 C RAP A SC 5593350 Strep A Negative 06/08/2017 %Hba1C Qts330 % HbA1c 35826-4 9.5 % 05/04/2017 %Hba1C Blg530 Gluc Ave 226 mg/dL 05/04/2017 Tsh Ord6 hTSH II 1.47 uIU/mL 05/04/2017 Cbc With Differential Ord2 WBC 6.14 K/ul 05/04/2017 Cbc With Differential Ord2 RBC 4.86 M/ul 05/04/2017 Cbc With Differential Ord2 HGB 15.4 g/dl 05/04/2017 Cbc With Differential Ord2 Neut% 49.8 % 05/04/2017 Cbc With Differential Ord2 HCT 43.7 % 05/04/2017 Cbc With Differential Ord2 Lymph% 40.4 % 05/04/2017 Cbc With Differential Ord2 MCV 89.9 fl 05/04/2017 Cbc With Differential Ord2 Parker% 8.5 % 05/04/2017 Cbc With Differential Ord2 MCH 31.7 pg 05/04/2017 Cbc With Differential Ord2 Eos% 1.0 % 05/04/2017 Cbc With Differential Ord2 MCHC 35.2 pg 05/04/2017 Cbc With Differential Ord2 Baso% 0.3 % 05/04/2017 Cbc With Differential Ord2 PLT 158 K/ul 05/04/2017 Cbc With Differential Ord2 Neut ABS# 3.06 K/ul 05/04/2017 Cbc With Differential Ord2 RDW 13.6 % 05/04/2017 Cbc With Differential Ord2 Lymph ABS# 2.48 K/ul 05/04/2017 Cbc With Differential Ord2 Parker ABS# 0.5 K/ul 05/04/2017 Cbc With Differential Ord2 Eos ABS# 0.1 K/ul 05/04/2017 Cbc With Differential Ord2 Baso ABS# 0.0 K/ul 05/04/2017 Comp Metabolic Tpm734 NA 135 mEq/L 05/04/2017 Comp Metabolic Xje347 K 4.2 mEq/L 05/04/2017 Comp Metabolic Kqy048 CL 99 mEq/L 05/04/2017 Comp Metabolic Qdm897 CO2 26.0 mEq/L 05/04/2017 Comp Metabolic Qbf766 ANION GAP 14 05/04/2017 Comp Metabolic Yio807 GLUCOSE 277 mg/dL 05/04/2017 Comp Metabolic Dtv282 Creat 0.9 mg/dL 05/04/2017 Comp Metabolic Uws629 eGFR 96 ml/min/1.73m2 05/04/2017 Comp Metabolic Psu674 BUN 23 mg/dL 05/04/2017 Comp Metabolic Rfs858 B/C Ratio 26.1 Ratio 05/04/2017 Comp Metabolic Ckk956 CALCIUM 8.9 mg/dL 05/04/2017 Comp Metabolic Tux069 ALK PHOS 81 U/L 05/04/2017 Comp Metabolic Pkc005 AST(SGOT) 21 U/L 05/04/2017 Comp Metabolic Znf248 ALT(SGPT) 27 U/L 05/04/2017 Comp Metabolic Qul593 BILI T 1.2 mg/dL 05/04/2017 Comp Metabolic Ncz850 ALBUMIN 4.0 g/dL 05/04/2017 Comp Metabolic Pad605 TPRO 6.7 g/dL 05/04/2017 Comp Metabolic Cei374 GLOB 2.7 g/dL 05/04/2017 Comp Metabolic Hcw462 A/G Ratio 1.5 Ratio 05/04/2017 Comp Metabolic Wyf288 Osmo 284 mOsmo 05/04/2017 C A/B FLU 9399601 Influenza A Scr Negative 02/16/2017 C A/B FLU 0178820 Influenza B Scr Positive 02/16/2017 Cbc With Differential Ord2 WBC 5.22 K/ul 05/23/2016 Cbc With Differential Ord2 RBC 5.21 M/ul 05/23/2016 Cbc With Differential Ord2 HGB 15.8 g/dl 05/23/2016 Cbc With Differential Ord2 HCT 45.6 % 05/23/2016 Cbc With Differential Ord2 Neut% 50.3 % 05/23/2016 Cbc With Differential Ord2 MCV 87.5 fl 05/23/2016 Cbc With Differential Ord2 Lymph% 39.7 % 05/23/2016 Cbc With Differential Ord2 Parker% 8.8 % 05/23/2016 Cbc With Differential Ord2 MCH 30.3 pg 05/23/2016 Cbc With Differential Ord2 MCHC 34.6 pg 05/23/2016 Cbc With Differential Ord2 Eos% 1.0 % 05/23/2016 Cbc With Differential Ord2 PLT 141 K/ul 05/23/2016 Cbc With Differential Ord2 Baso% 0.2 % 05/23/2016 Cbc With Differential Ord2 Neut ABS# 2.63 K/ul 05/23/2016 Cbc With Differential Ord2 RDW 13.2 % 05/23/2016 Cbc With Differential Ord2 Lymph ABS# 2.07 K/ul 05/23/2016 Cbc With Differential Ord2 Parker ABS# 0.5 K/ul 05/23/2016 Cbc With Differential Ord2 Eos ABS# 0.1 K/ul 05/23/2016 Cbc With Differential Ord2 Baso ABS# 0.0 K/ul 05/23/2016 Lipid Ord30 CHOL 397 mg/dL 05/17/2016 Lipid Ord30 HDL 48.0 mg/dl 05/17/2016 Lipid Ord30 TRIG 578 mg/dL 05/17/2016 Lipid Ord30 LDL Unable to calculate Due to elevated triglycerides mg/dL 05/17/2016 Lipid Ord30 C/HDL 8.3 Ratio 05/17/2016 %Hba1C Pxv747 % HbA1c 68956-9 12.4 % 05/16/2016 %Hba1C Ypj843 Gluc Ave 309 mg/dL 05/16/2016 Cbc With Differential Ord2 WBC 6.40 K/ul 05/15/2016 Cbc With Differential Ord2 RBC 5.96 M/ul 05/15/2016 Cbc With Differential Ord2 HGB 18.1 g/dl 05/15/2016 Cbc With Differential Ord2 HCT 52.1 % 05/15/2016 Cbc With Differential Ord2 Neut% 59.3 % 05/15/2016 Cbc With Differential Ord2 Lymph% 31.9 % 05/15/2016 Cbc With Differential Ord2 MCV 87.4 fl 05/15/2016 Cbc With Differential Ord2 Parker% 7.8 % 05/15/2016 Cbc With Differential Ord2 MCH 30.4 pg 05/15/2016 Cbc With Differential Ord2 MCHC 34.7 pg 05/15/2016 Cbc With Differential Ord2 Eos% 0.8 % 05/15/2016 Cbc With Differential Ord2 Baso% 0.2 % 05/15/2016 Cbc With Differential Ord2 PLT 184 K/ul 05/15/2016 Cbc With Differential Ord2 Neut ABS# 3.80 K/ul 05/15/2016 Cbc With Differential Ord2 RDW 14.0 % 05/15/2016 Cbc With Differential Ord2 Lymph ABS# 2.04 K/ul 05/15/2016 Cbc With Differential Ord2 Parker ABS# 0.5 K/ul 05/15/2016 Cbc With Differential Ord2 Eos ABS# 0.1 K/ul 05/15/2016 Cbc With Differential Ord2 Baso ABS# 0.0 K/ul 05/15/2016 Tsh Ord6 hTSH II 1.70 uIU/mL 05/15/2016 Comp Metabolic Ssr414 NA 135 mEq/L 05/15/2016 Comp Metabolic Rnt866 K 3.9 mEq/L 05/15/2016 Comp Metabolic Qbp550 CL 96 mEq/L 05/15/2016 Comp Metabolic Bzc077 CO2 27.0 mEq/L 05/15/2016 Comp Metabolic Xcq563 ANION GAP 16 05/15/2016 Comp Metabolic Bfq142 GLUCOSE 183 mg/dL 05/15/2016 Comp Metabolic Not078 Creat 1.1 mg/dL 05/15/2016 Comp Metabolic Tug350 eGFR 71 ml/min/1.73m2 05/15/2016 Comp Metabolic Dwh681 BUN 17 mg/dL 05/15/2016 Comp Metabolic Lxc917 B/C Ratio 14.9 Ratio 05/15/2016 Comp Metabolic Mzt134 CALCIUM 9.6 mg/dL 05/15/2016 Comp Metabolic Kas210 ALK PHOS 100 U/L 05/15/2016 Comp Metabolic Ltu443 AST(SGOT) 20 U/L 05/15/2016 Comp Metabolic Jkj649 ALT(SGPT) 20 U/L 05/15/2016 Comp Metabolic Wzg204 BILI T 1.3 mg/dL 05/15/2016 Comp Metabolic Ald844 ALBUMIN 4.6 g/dL 05/15/2016 Comp Metabolic Deu041 TPRO 8.1 g/dL 05/15/2016 Comp Metabolic Srp504 GLOB 3.5 g/dL 05/15/2016 Comp Metabolic Uqi770 A/G Ratio 1.3 Ratio 05/15/2016 Comp Metabolic Qib553 Osmo 276 mOsmo 05/15/2016 Review of Systems System Result Effective Dates Constitutional recent illness 08/27/2017 Constitutional No chills 08/27/2017 Constitutional No diaphoresis 08/27/2017 Constitutional No fever 08/27/2017 Constitutional malaise 08/27/2017 Constitutional fatigue 08/27/2017 Eyes No eye erythema 08/27/2017 Ears/Nose/Throat/Neck nasal allergies Ears/Nose/Throat/Neck No sinus congestion 08/27/2017 Ears/Nose/Throat/Neck No sore throat Cardiovascular No chest pain/pressure Cardiovascular No dyspnea 08/27/2017 Respiratory No cough 08/27/2017 Respiratory No dyspnea 08/27/2017 Gastrointestinal No abdominal pain 2016 Musculoskeletal arthralgia(s) 08/27/2017 Musculoskeletal joint complaint 2016 Neurologic No alteration of consciousness 08/27/2017 Neurologic No mental status change 2016 Constitutional No recent illness 2016 Constitutional No anorexia 08/16/2017 Constitutional No night sweats 2016 Constitutional No chills 08/16/2017 Constitutional No diaphoresis 08/16/2017 Constitutional No fatigue 08/16/2017 Constitutional No fever 08/16/2017 Constitutional No insomnia 08/16/2017 Constitutional No malaise 08/16/2017 Eyes No eye discharge 08/16/2017 Eyes No eye erythema 08/16/2017 Ears/Nose/Throat/Neck No dizziness 2016 Ears/Nose/Throat/Neck No headache 2016 Cardiovascular No chest pain/pressure 10/2017 Cardiovascular No dyspnea 08/16/2017 Respiratory No cough 08/16/2017 Gastrointestinal No abdominal pain 2016 Gastrointestinal No constipation 2016 Gastrointestinal No diarrhea 08/16/2017 Genitourinary/Nephrology No dysuria 08/16 Musculoskeletal joint complaint 2016 Dermatologic No rash 08/16/2017 Neurologic No alteration of consciousness 08/16/2017 Psychiatric No depression 08/16/2017 Endocrine No dry or coarse skin 2016 Dermatologic sores 08/16/2017 Constitutional No recent illness 2016 Constitutional No chills 07/26/2017 Constitutional No diaphoresis 07/26/2017 Constitutional No fever 07/26/2017 Eyes No eye erythema 07/26/2017 Ears/Nose/Throat/Neck No nasal allergies 07/26/2017 Ears/Nose/Throat/Neck No nasal discharge 07/26/2017 Cardiovascular No dyspnea 07/26/2017 Cardiovascular No chest pain/pressure Respiratory No cough 07/26/2017 Respiratory No chest congestion 2016 Respiratory No dyspnea 07/26/2017 Gastrointestinal No abdominal pain 2016 Dermatologic rash 07/26/2017 Neurologic No alteration of consciousness 07/26/2017 Neurologic No mental status change 2016 Constitutional No recent illness 2016 Constitutional No anorexia 07/03/2017 Constitutional No night sweats 2016 Constitutional No chills 07/03/2017 Constitutional No diaphoresis 07/03/2017 Constitutional No fatigue 07/03/2017 Constitutional No fever 07/03/2017 Constitutional No insomnia 07/03/2017 Constitutional No malaise 07/03/2017 Constitutional No weight loss 07/03/2017 Constitutional No weight gain 07/03/2017 Dermatologic sores 07/03/2017 Constitutional No recent illness 2016 Constitutional No night sweats 2016 Constitutional No anorexia 06/29/2017 Constitutional No chills 06/29/2017 Constitutional No diaphoresis 06/29/2017 Constitutional fatigue 06/29/2017 Constitutional No fever 06/29/2017 Constitutional No insomnia 06/29/2017 Constitutional No malaise 06/29/2017 Constitutional No weight loss 06/29/2017 Constitutional No weight gain 06/29/2017 Dermatologic laceration 06/29/2017 Constitutional No recent illness 2016 Constitutional No anorexia 06/18/2017 Constitutional No night sweats 2016 Constitutional No chills 06/18/2017 Constitutional No diaphoresis 06/18/2017 Constitutional No fatigue 06/18/2017 Constitutional No fever 06/18/2017 Constitutional No insomnia 06/18/2017 Constitutional No malaise 06/18/2017 Constitutional No weight loss 06/18/2017 Constitutional No weight gain 06/18/2017 Dermatologic sores 06/18/2017 Constitutional recent illness 06/07/2017 Constitutional No anorexia 06/07/2017 Constitutional No night sweats 2016 Constitutional No chills 06/07/2017 Constitutional No diaphoresis 06/07/2017 Constitutional fatigue 06/07/2017 Constitutional No fever 06/07/2017 Constitutional No insomnia 06/07/2017 Constitutional No malaise 06/07/2017 Constitutional No weight loss 06/07/2017 Constitutional No weight gain 06/07/2017 Dermatologic erythema 06/07/2017 Ears/Nose/Throat/Neck sore throat 2016 Musculoskeletal joint complaint 2016 Genitourinary/Nephrology No dysuria 06/07 Gastrointestinal No abdominal pain 2016 Respiratory No cough 06/07/2017 Cardiovascular No chest pain/pressure 01/2017 Cardiovascular No dyspnea 06/07/2017 Eyes No eye erythema 06/07/2017 Eyes No eye discharge 06/07/2017 Gastrointestinal gastroesophageal reflux 06/07/2017 Constitutional No recent illness 2016 Constitutional No anorexia 05/17/2017 Constitutional No night sweats 2016 Constitutional No chills 05/17/2017 Constitutional No diaphoresis 05/17/2017 Constitutional No fatigue 05/17/2017 Constitutional No fever 05/17/2017 Constitutional No insomnia 05/17/2017 Constitutional No malaise 05/17/2017 Constitutional No weight loss 05/17/2017 Constitutional No weight gain 05/17/2017 Constitutional No obesity 05/17/2017 Eyes No eye pain 05/17/2017 Eyes No vision change 05/17/2017 Ears/Nose/Throat/Neck No dizziness 2016 Ears/Nose/Throat/Neck No headache 2016 Cardiovascular No chest pain/pressure Cardiovascular No dyspnea 05/17/2017 Cardiovascular No palpitations 2016 Respiratory No chest congestion 2016 Respiratory No chest tightness 2016 Respiratory No cigarette smoking 2016 Respiratory No cough 05/17/2017 Gastrointestinal No abdominal pain 2016 Gastrointestinal No constipation 2016 Gastrointestinal No diarrhea 05/17/2017 Genitourinary/Nephrology No anuria/oliguria 05/17/2017 Genitourinary/Nephrology No dysuria 05/17 Musculoskeletal No stiffness 05/17/2017 Musculoskeletal No swelling 05/17/2017 Musculoskeletal No arthralgia(s) 2016 Musculoskeletal No back pain 05/17/2017 Musculoskeletal No bone fracture 2016 Musculoskeletal No muscle weakness 2016 Dermatologic No rash 05/17/2017 Dermatologic No sores 05/17/2017 Neurologic No alteration of consciousness 05/17/2017 Neurologic No dizziness 05/17/2017 Neurologic No mental status change 2016 Psychiatric No anxiety 05/17/2017 Psychiatric No depression 05/17/2017 Endocrine No polydipsia 05/17/2017 Endocrine No polyuria 05/17/2017 Hematologic/Lymphatic No abnormal ecchymoses 05/17/2017 Hematologic/Lymphatic No abnormal bleeding and bruising 05/17/2017 Allergy/Immunology No rhinitis 2016 Allergy/Immunology No urticaria 2016 Dermatologic rash 05/04/2017 Constitutional No recent illness 2016 Constitutional No anorexia 05/04/2017 Constitutional No night sweats 2016 Constitutional No chills 05/04/2017 Constitutional No diaphoresis 05/04/2017 Constitutional No fatigue 05/04/2017 Constitutional No fever 05/04/2017 Constitutional No insomnia 05/04/2017 Constitutional No malaise 05/04/2017 Constitutional No weight loss 05/04/2017 Constitutional No weight gain 05/04/2017 Constitutional No recent illness 2016 Constitutional No anorexia 03/15/2017 Constitutional No night sweats 2016 Constitutional No chills 03/15/2017 Constitutional No diaphoresis 03/15/2017 Constitutional No fatigue 03/15/2017 Constitutional No fever 03/15/2017 Constitutional No insomnia 03/15/2017 Constitutional No malaise 03/15/2017 Constitutional No weight loss 03/15/2017 Constitutional No weight gain 03/15/2017 Constitutional No obesity 03/15/2017 Eyes No eye pain 03/15/2017 Eyes No vision change 03/15/2017 Ears/Nose/Throat/Neck No dizziness 2016 Ears/Nose/Throat/Neck No headache 2016 Cardiovascular No dyspnea 03/15/2017 Cardiovascular No palpitations 2016 Cardiovascular No chest pain/pressure 09/2017 Respiratory No chest congestion 2016 Respiratory No chest tightness 2016 Respiratory No cigarette smoking 2016 Respiratory No cough 03/15/2017 Gastrointestinal No abdominal pain 2016 Gastrointestinal No constipation 2016 Gastrointestinal No diarrhea 03/15/2017 Genitourinary/Nephrology No dysuria 03/15 Genitourinary/Nephrology No anuria/oliguria 03/15/2017 Musculoskeletal No stiffness 03/15/2017 Musculoskeletal No swelling 03/15/2017 Musculoskeletal No arthralgia(s) 2016 Musculoskeletal No bone fracture 2016 Musculoskeletal No muscle weakness 2016 Musculoskeletal No back pain 03/15/2017 Dermatologic No rash 03/15/2017 Dermatologic No sores 03/15/2017 Neurologic No alteration of consciousness 03/15/2017 Neurologic No dizziness 03/15/2017 Neurologic No mental status change 2016 Psychiatric No anxiety 03/15/2017 Psychiatric No depression 03/15/2017 Endocrine No polyuria 03/15/2017 Endocrine No polydipsia 03/15/2017 Hematologic/Lymphatic No abnormal ecchymoses 03/15/2017 Hematologic/Lymphatic No abnormal bleeding and bruising 03/15/2017 Allergy/Immunology No rhinitis 2016 Allergy/Immunology No urticaria 2016 Constitutional recent illness 03/01/2017 Constitutional No anorexia 03/01/2017 Constitutional No night sweats 2016 Constitutional No chills 03/01/2017 Constitutional No diaphoresis 03/01/2017 Constitutional fatigue 03/01/2017 Constitutional No fever 03/01/2017 Constitutional No insomnia 03/01/2017 Constitutional No malaise 03/01/2017 Constitutional No weight loss 03/01/2017 Constitutional No weight gain 03/01/2017 Constitutional No obesity 03/01/2017 Eyes No blindness 03/01/2017 Eyes No eye discharge 03/01/2017 Eyes No eye erythema 03/01/2017 Eyes No eye floaters 03/01/2017 Eyes No eye foreign body 03/01/2017 Eyes No eye pain 03/01/2017 Eyes No eye tearing 03/01/2017 Eyes No eye trauma 03/01/2017 Eyes No eyelid edema 03/01/2017 Eyes No eyelid erythema 03/01/2017 Eyes No eyelid pain 03/01/2017 Eyes No photophobia 03/01/2017 Eyes No vision change 03/01/2017 Eyes No amblyopia 03/01/2017 Eyes No cataract 03/01/2017 Eyes No glaucoma 03/01/2017 Eyes No macular degeneration 03/01/2017 Ears/Nose/Throat/Neck dizziness 2016 Ears/Nose/Throat/Neck No headache 2016 Cardiovascular No arrhythmia 03/01/2017 Cardiovascular No chest pain/pressure Cardiovascular No claudication 2016 Cardiovascular dyspnea 03/01/2017 Cardiovascular No edema 03/01/2017 Cardiovascular No exercise intolerance Cardiovascular No fatigue 03/01/2017 Cardiovascular No hypertension 2016 Cardiovascular No near-syncope/dizziness 03/01/2017 Cardiovascular No orthopnea 03/01/2017 Cardiovascular No palpitations 2016 Cardiovascular No paroxysmal nocturnal dyspnea 03/01/2017 Cardiovascular No syncope 03/01/2017 Respiratory No asthma 03/01/2017 Respiratory No pleuritic pain 03/01/2017 Respiratory No productive sputum 2016 Respiratory No foul smelling sputum 03/01 Respiratory No apneic events 03/01/2017 Respiratory No aspiration 03/01/2017 Respiratory No chest congestion 2016 Respiratory chest tightness 03/01/2017 Respiratory No cigarette smoking 2016 Respiratory cough 03/01/2017 Respiratory No daytime hypersomnolence Respiratory dyspnea on exertion 2016 Respiratory dyspnea 03/01/2017 Respiratory No hemoptysis 03/01/2017 Respiratory No hiccups 03/01/2017 Respiratory nocturnal cough 03/01/2017 Respiratory No passive smoking 2016 Respiratory No pedal edema 03/01/2017 Respiratory No orthopnea 03/01/2017 Respiratory No snoring 03/01/2017 Respiratory No stridor 03/01/2017 Respiratory No wheezing 03/01/2017 Gastrointestinal No abdominal pain 2016 Gastrointestinal No constipation 2016 Gastrointestinal No diarrhea 03/01/2017 Genitourinary/Nephrology No anuria/oliguria 03/01/2017 Genitourinary/Nephrology No dysuria 03/01 Musculoskeletal No stiffness 03/01/2017 Musculoskeletal No swelling 03/01/2017 Musculoskeletal No arthralgia(s) 2016 Musculoskeletal No back pain 03/01/2017 Dermatologic No rash 03/01/2017 Dermatologic No sores 03/01/2017 Neurologic No alteration of consciousness 03/01/2017 Neurologic No headache 03/01/2017 Neurologic No mental status change 2016 Psychiatric No anxiety 03/01/2017 Psychiatric No depression 03/01/2017 Hematologic/Lymphatic No abnormal ecchymoses 03/01/2017 Hematologic/Lymphatic No abnormal bleeding and bruising 03/01/2017 Endocrine No dry or coarse skin 2016 Endocrine No hair loss 03/01/2017 Endocrine No polyuria 03/01/2017 Endocrine No polydipsia 03/01/2017 Allergy/Immunology No anaphylactoid reaction 03/01/2017 Allergy/Immunology No food allergy 2016 Constitutional recent illness 02/16/2017 Constitutional No anorexia 02/16/2017 Constitutional No night sweats 2016 Constitutional chills 02/16/2017 Constitutional diaphoresis 02/16/2017 Constitutional fatigue 02/16/2017 Constitutional fever 02/16/2017 Constitutional No insomnia 02/16/2017 Constitutional malaise 02/16/2017 Constitutional No weight loss 02/16/2017 Constitutional No weight gain 02/16/2017 Eyes No eye erythema 02/16/2017 Eyes No eye discharge 02/16/2017 Ears/Nose/Throat/Neck dizziness 2016 Ears/Nose/Throat/Neck headache 2016 Ears/Nose/Throat/Neck nasal allergies Ears/Nose/Throat/Neck No nasal discharge 02/16/2017 Ears/Nose/Throat/Neck No otitis media Ears/Nose/Throat/Neck sinus congestion Ears/Nose/Throat/Neck No sore throat Cardiovascular No chest pain/pressure Respiratory No productive sputum 2016 Respiratory chest congestion 02/16/2017 Respiratory cough 02/16/2017 Respiratory dyspnea on exertion 2016 Gastrointestinal No abdominal pain 2016 Gastrointestinal No constipation 2016 Gastrointestinal diarrhea 02/16/2017 Genitourinary/Nephrology No dysuria 02/16 Musculoskeletal No joint complaint 2016 Dermatologic No rash 02/16/2017 Neurologic No alteration of consciousness 02/16/2017 Constitutional recent illness 02/12/2017 Constitutional No anorexia 02/12/2017 Constitutional No night sweats 2016 Constitutional No chills 02/12/2017 Constitutional No diaphoresis 02/12/2017 Constitutional fatigue 02/12/2017 Constitutional No fever 02/12/2017 Constitutional insomnia 02/12/2017 Constitutional malaise 02/12/2017 Constitutional No weight loss 02/12/2017 Constitutional No weight gain 02/12/2017 Constitutional No obesity 02/12/2017 Eyes No eye pain 02/12/2017 Eyes No vision change 02/12/2017 Ears/Nose/Throat/Neck No dizziness 2016 Ears/Nose/Throat/Neck No facial weakness 02/12/2017 Ears/Nose/Throat/Neck No headache 2016 Cardiovascular No chest pain/pressure 08/2017 Cardiovascular No palpitations 2016 Cardiovascular No orthopnea 02/12/2017 Cardiovascular No dyspnea 02/12/2017 Respiratory No chest congestion 2016 Respiratory No chest tightness 2016 Respiratory No cigarette smoking 2016 Gastrointestinal No constipation 2016 Gastrointestinal No diarrhea 02/12/2017 Gastrointestinal No abdominal pain 2016 Respiratory cough 02/12/2017 Respiratory No productive sputum 2016 Respiratory wheezing 02/12/2017 Genitourinary/Nephrology No anuria/oliguria 02/12/2017 Genitourinary/Nephrology No dysuria 02/12 Musculoskeletal No stiffness 02/12/2017 Musculoskeletal No arthralgia(s) 2016 Musculoskeletal No swelling 02/12/2017 Musculoskeletal back pain 02/12/2017 Musculoskeletal No bone pain 02/12/2017 Dermatologic No drainage 02/12/2017 Dermatologic No rash 02/12/2017 Dermatologic No sores 02/12/2017 Neurologic No alteration of consciousness 02/12/2017 Neurologic No headache 02/12/2017 Psychiatric No anxiety 02/12/2017 Psychiatric No depression 02/12/2017 Endocrine No polyuria 02/12/2017 Endocrine No polydipsia 02/12/2017 Endocrine No sweating 02/12/2017 Hematologic/Lymphatic No abnormal ecchymoses 02/12/2017 Hematologic/Lymphatic No abnormal bleeding and bruising 02/12/2017 Allergy/Immunology No anaphylactoid reaction 02/12/2017 Allergy/Immunology No rhinitis 2016 Allergy/Immunology No urticaria 2016 Constitutional recent illness 02/05/2017 Constitutional anorexia 02/05/2017 Constitutional No night sweats 2016 Constitutional No chills 02/05/2017 Constitutional diaphoresis 02/05/2017 Constitutional fatigue 02/05/2017 Constitutional No fever 02/05/2017 Constitutional No insomnia 02/05/2017 Constitutional No malaise 02/05/2017 Constitutional No weight loss 02/05/2017 Constitutional No weight gain 02/05/2017 Eyes No eye discharge 02/05/2017 Eyes No eye erythema 02/05/2017 Eyes vision change 02/05/2017 Ears/Nose/Throat/Neck dizziness 2016 Ears/Nose/Throat/Neck headache 2016 Cardiovascular No chest pain/pressure 01/2017 Cardiovascular No dyspnea 02/05/2017 Cardiovascular No edema 02/05/2017 Respiratory No cough 02/05/2017 Gastrointestinal No abdominal pain 2016 Gastrointestinal No constipation 2016 Gastrointestinal No diarrhea 02/05/2017 Gastrointestinal nausea 02/05/2017 Gastrointestinal No vomiting 02/05/2017 Genitourinary/Nephrology No dysuria 02/05 Musculoskeletal joint complaint 2016 Dermatologic No rash 02/05/2017 Neurologic gait abnormality 02/05/2017 Psychiatric anxiety 02/05/2017 Endocrine No dry or coarse skin 2016 Constitutional recent illness 01/29/2017 Constitutional anorexia 01/29/2017 Constitutional No night sweats 2016 Constitutional No chills 01/29/2017 Constitutional diaphoresis 01/29/2017 Constitutional fatigue 01/29/2017 Constitutional No fever 01/29/2017 Constitutional No insomnia 01/29/2017 Constitutional No malaise 01/29/2017 Constitutional No weight loss 01/29/2017 Constitutional No weight gain 01/29/2017 Eyes No eye erythema 01/29/2017 Eyes No eye discharge 01/29/2017 Ears/Nose/Throat/Neck dizziness 2016 Ears/Nose/Throat/Neck headache 2016 Eyes vision change 01/29/2017 Cardiovascular No chest pain/pressure Cardiovascular No dyspnea 01/29/2017 Cardiovascular No edema 01/29/2017 Respiratory No cough 01/29/2017 Gastrointestinal No abdominal pain 2016 Gastrointestinal No constipation 2016 Gastrointestinal No diarrhea 01/29/2017 Gastrointestinal nausea 01/29/2017 Gastrointestinal No vomiting 01/29/2017 Genitourinary/Nephrology No dysuria 01/29 Musculoskeletal joint complaint 2016 Dermatologic No rash 01/29/2017 Neurologic gait abnormality 01/29/2017 Psychiatric anxiety 01/29/2017 Endocrine No dry or coarse skin 2016 Dermatologic erythema 10/09/2016 Musculoskeletal joint complaint 2015 Dermatologic sores 10/09/2016 Constitutional No recent illness 2015 Constitutional No anorexia 10/06/2016 Constitutional No night sweats 2015 Constitutional No diaphoresis 10/06/2016 Constitutional No fatigue 10/06/2016 Constitutional No fever 10/06/2016 Constitutional No chills 10/06/2016 Constitutional No insomnia 10/06/2016 Constitutional No malaise 10/06/2016 Constitutional No weight loss 10/06/2016 Constitutional No weight gain 10/06/2016 Dermatologic erythema 10/06/2016 Dermatologic No drainage 10/06/2016 Musculoskeletal joint complaint 2015 Musculoskeletal back pain 07/18/2016 Constitutional No recent illness 2015 Constitutional No anorexia 07/18/2016 Constitutional No night sweats 2015 Constitutional No chills 07/18/2016 Constitutional fatigue 07/18/2016 Constitutional No diaphoresis 07/18/2016 Constitutional No fever 07/18/2016 Constitutional No insomnia 07/18/2016 Constitutional No weight loss 07/18/2016 Constitutional No malaise 07/18/2016 Constitutional No weight gain 07/18/2016 Musculoskeletal joint complaint 2015 Dermatologic sores 07/18/2016 Ears/Nose/Throat/Neck No dizziness 2015 Ears/Nose/Throat/Neck No headache 2015 Cardiovascular No chest pain/pressure Respiratory No cough 07/18/2016 Gastrointestinal No abdominal pain 2015 Genitourinary/Nephrology No dysuria 07/18 Neurologic No alteration of consciousness 07/18/2016 Constitutional No recent illness 2015 Constitutional No anorexia 06/22/2016 Constitutional No night sweats 2015 Constitutional No chills 06/22/2016 Constitutional No diaphoresis 06/22/2016 Constitutional No fatigue 06/22/2016 Constitutional No fever 06/22/2016 Constitutional No insomnia 06/22/2016 Constitutional No malaise 06/22/2016 Constitutional No weight loss 06/22/2016 Constitutional No weight gain 06/22/2016 Eyes No eye discharge 06/22/2016 Eyes No eye erythema 06/22/2016 Ears/Nose/Throat/Neck No dizziness 2015 Ears/Nose/Throat/Neck No headache 2015 Cardiovascular No chest pain/pressure Cardiovascular No dyspnea 06/22/2016 Cardiovascular No edema 06/22/2016 Respiratory No cough 06/22/2016 Gastrointestinal No abdominal pain 2015 Gastrointestinal No constipation 2015 Gastrointestinal No diarrhea 06/22/2016 Genitourinary/Nephrology No dysuria 06/22 Musculoskeletal No joint complaint 2015 Dermatologic No rash 06/22/2016 Neurologic No alteration of consciousness 06/22/2016 Psychiatric depression 06/22/2016 Musculoskeletal back pain 06/22/2016 Constitutional No recent illness 2015 Constitutional No anorexia 05/23/2016 Constitutional No night sweats 2015 Constitutional No chills 05/23/2016 Constitutional No diaphoresis 05/23/2016 Constitutional No fatigue 05/23/2016 Constitutional No insomnia 05/23/2016 Constitutional No fever 05/23/2016 Constitutional No malaise 05/23/2016 Constitutional No weight loss 05/23/2016 Constitutional No weight gain 05/23/2016 Eyes No eye discharge 05/23/2016 Eyes No eye erythema 05/23/2016 Ears/Nose/Throat/Neck No dizziness 2015 Ears/Nose/Throat/Neck No headache 2015 Cardiovascular No chest pain/pressure Cardiovascular No dyspnea 05/23/2016 Respiratory No cough 05/23/2016 Gastrointestinal No abdominal pain 2015 Gastrointestinal No constipation 2015 Gastrointestinal No diarrhea 05/23/2016 Genitourinary/Nephrology No dysuria 05/23 Dermatologic No rash 05/23/2016 Musculoskeletal joint complaint 2015 Neurologic No alteration of consciousness 05/23/2016 Endocrine No dry or coarse skin 2015 Psychiatric No depression 05/23/2016 Constitutional recent illness 05/15/2016 Constitutional anorexia 05/15/2016 Constitutional chills 05/15/2016 Constitutional diaphoresis 05/15/2016 Constitutional fatigue 05/15/2016 Constitutional No fever 05/15/2016 Constitutional No insomnia 05/15/2016 Constitutional No malaise 05/15/2016 Constitutional No weight loss 05/15/2016 Constitutional No weight gain 05/15/2016 Eyes No eye discharge 05/15/2016 Eyes No eye erythema 05/15/2016 Ears/Nose/Throat/Neck dizziness 2015 Ears/Nose/Throat/Neck headache 2015 Cardiovascular No chest pain/pressure 09/2016 Respiratory No cough 05/15/2016 Respiratory dyspnea on exertion 2015 Gastrointestinal No abdominal pain 2015 Gastrointestinal No constipation 2015 Gastrointestinal No diarrhea 05/15/2016 Cardiovascular No near-syncope/dizziness 05/15/2016 Cardiovascular No syncope 05/15/2016 Gastrointestinal nausea 05/15/2016 Gastrointestinal No vomiting 05/15/2016 Genitourinary/Nephrology No dysuria 05/15 Musculoskeletal joint complaint 2015 Dermatologic No rash 05/15/2016 Dermatologic No sores 05/15/2016 Neurologic No alteration of consciousness 05/15/2016 Neurologic paresthesia 05/15/2016 Psychiatric anxiety 05/15/2016 Endocrine No dry or coarse skin 2015 Endocrine No polydipsia 05/15/2016 Endocrine weakness 05/15/2016 Endocrine sweating 05/15/2016 Hematologic/Lymphatic No abnormal ecchymoses 05/15/2016 Constitutional No recent illness 2015 Constitutional No fatigue 01/20/2016 Constitutional No fever 01/20/2016 Constitutional No malaise 01/20/2016 Eyes No eye erythema 01/20/2016 Eyes No photophobia 01/20/2016 Ears/Nose/Throat/Neck No nasal allergies 01/20/2016 Ears/Nose/Throat/Neck No nasal discharge 01/20/2016 Ears/Nose/Throat/Neck No otalgia 2015 Ears/Nose/Throat/Neck No postnasal drip 01/20/2016 Ears/Nose/Throat/Neck No sinus congestion 01/20/2016 Cardiovascular No chest pain/pressure Cardiovascular No dyspnea 01/20/2016 Cardiovascular No edema 01/20/2016 Respiratory No productive sputum 2015 Respiratory No chest congestion 2015 Respiratory No cough 01/20/2016 Respiratory No cigarette smoking 2015 Respiratory No dyspnea 01/20/2016 Gastrointestinal No abdominal pain 2015 Gastrointestinal No constipation 2015 Gastrointestinal No diarrhea 01/20/2016 Gastrointestinal No gastroesophageal reflux 01/20/2016 Gastrointestinal No nausea 01/20/2016 Gastrointestinal No vomiting 01/20/2016 Genitourinary/Nephrology No dysuria 01/19 Musculoskeletal back pain 01/20/2016 Dermatologic rash 01/20/2016 Neurologic No alteration of consciousness 01/20/2016 Neurologic No mental status change 2015 Physical Exam Exam Name System Name Item Name Status Result Effective Dates Notes Full Exam - General 1994 Constitutional general appearance Overall: well developed 08/27/2017 None Full Exam - General 1994 Constitutional general appearance Overall: in no acute distress 08/27/2017 None Full Exam - General 1994 Constitutional general appearance Overall: well nourished 08/27/2017 None Full Exam - General 1994 Eyes conjunctiva /eyelids Overall: conjunctiva clear 08/27/2017 None Full Exam - General 1994 Eyes pupils and irises Overall: pupils equal, round, reactive to light and accomodation 08/27/2017 None Full Exam - General 1994 Ears/Nose/Throat oral cavity/pharynx/larynx Overall: oral mucosa clear 08/27/2017 None Full Exam - General 1994 Respiratory auscultation Overall: breath sounds clear bilaterally 08/27/2017 None Full Exam - General 1994 Respiratory respiratory effort/rhythm Overall: no retractions 08/27/2017 None Full Exam - General 1994 Respiratory respiratory effort/rhythm Overall: normal rate 08/27/2017 None Full Exam - General 1994 Cardiovascular auscultation of heart Overall: regular rate 08/27/2017 None Full Exam - General 1994 Cardiovascular auscultation of heart Overall: normal heart sounds 08/27/2017 None Full Exam - General 1994 Lymphatic neck nodes Overall: anterior cervical chain benign 08/27/2017 None Full Exam - General 1994 Lymphatic neck nodes Overall: posterior cervical chain benign 08/27/2017 None Full Exam - General 1994 Integument inspection of skin Rash/Lesions: surgical site 08/27/2017 healing lesion on surgical site on right foot at site where great toe would have been prior to surgical removal. Full Exam - General 1994 Psychiatric orientation/consciousness Overall: oriented to person, place and time 08/27/2017 None Full Exam - General 1994 Ears/Nose/Throat lips/teeth/gingiva Overall: benign lips 08/27/2017 None Full Exam - General 1994 Neurologic cranial nerves Overall: crainial nerves 2 - 12 grossly intact 08/27/2017 None Full Exam - General 1994 Psychiatric mood and affect Overall: normal mood and affect 08/27/2017 None Full Exam - General 1994 Psychiatric appearance Overall: well-groomed, good eye contact 08/27/2017 None Full Exam - General 1994 Musculoskeletal upper extremity Overall: normal shoulder 08/27/2017 None Full Exam - General 1994 Constitutional general appearance Overall: well developed 08/16/2017 None Full Exam - General 1994 Constitutional general appearance Overall: in no acute distress 08/16/2017 None Full Exam - General 1994 Constitutional general appearance Overall: well nourished 08/16/2017 None Full Exam - General 1994 Eyes conjunctiva /eyelids Overall: conjunctiva clear 08/16/2017 None Full Exam - General 1994 Eyes pupils and irises Overall: pupils equal, round, reactive to light and accomodation 08/16/2017 None Full Exam - General 1994 Ears/Nose/Throat otoscopic exam Overall: external auditory canals clear 08/16/2017 None Full Exam - General 1994 Ears/Nose/Throat otoscopic exam Overall: tympanic membranes clear 08/16/2017 None Full Exam - General 1994 Ears/Nose/Throat oral cavity/pharynx/larynx Overall: oral mucosa clear 08/16/2017 None Full Exam - General 1994 Respiratory auscultation Overall: breath sounds clear bilaterally 08/16/2017 None Full Exam - General 1994 Respiratory respiratory effort/rhythm Overall: no retractions 08/16/2017 None Full Exam - General 1994 Respiratory respiratory effort/rhythm Overall: normal rate 08/16/2017 None Full Exam - General 1994 Cardiovascular auscultation of heart Overall: regular rate 08/16/2017 None Full Exam - General 1994 Cardiovascular auscultation of heart Overall: normal heart sounds 08/16/2017 None Full Exam - General 1994 Abdomen abdominal exam Overall: no tenderness 08/16/2017 None Full Exam - General 1994 Abdomen abdominal exam Overall: normal bowel sounds 08/16/2017 None Full Exam - General 1994 Lymphatic neck nodes Overall: anterior cervical chain benign 08/16/2017 None Full Exam - General 1994 Lymphatic neck nodes Overall: posterior cervical chain benign 08/16/2017 None Full Exam - General 1994 Neurologic sensation Touch: (specify location of deficit): two-point discrimination _ 08/16/2017 None Full Exam - General 1994 Neurologic sensation Touch: (specify location of deficit): decreased 08/16/2017 missing toes 2 -5 left foot and middle toes x 2 right foot Full Exam - General 1994 Psychiatric orientation/consciousness Overall: oriented to person, place and time 08/16/2017 None Full Exam - General 1994 Integument inspection of skin Rash/Lesions: surgical site 08/16/2017 healing lesion on surgical site on right foot at site where great toe would have been prior to surgical removal. Full Exam - Dermatology Constitutional general appearance Overall: well nourished 07/26/2017 None Full Exam - Dermatology Constitutional general appearance Overall: well developed 07/26/2017 None Full Exam - Dermatology Constitutional general appearance Overall: in no acute distress 07/26/2017 None Full Exam - Dermatology Eyes conjunctiva/ eyelids Overall: clear conjunctiva bilaterally 07/26/2017 None Full Exam - Dermatology Eyes conjunctiva/ eyelids Overall: normal eyelids 07/26/2017 None Full Exam - Dermatology Ears/Nose/Throat lips/teeth/gingiva Overall: normal dentition 07/26/2017 None Full Exam - Dermatology Respiratory respiratory effort/rhythm Overall: no retractions 07/26/2017 None Full Exam - Dermatology Respiratory respiratory effort/rhythm Overall: normal rate 07/26/2017 None Full Exam - Dermatology Musculoskeletal head and neck Overall: head atraumatic 07/26/2017 None Full Exam - Dermatology Musculoskeletal gait and station Overall: normal gait 07/26/2017 None Full Exam - Dermatology Musculoskeletal gait and station Overall: normal station 07/26/2017 None Full Exam - Dermatology Integument insp & palp - back Location: on the left lower back 07/26/2017 None Full Exam - Dermatology Integument insp & palp - abdomen Location: on the left lower abdomen 07/26/2017 None Full Exam - Dermatology Integument insp & palp - abdomen Color: erythematous 07/26/2017 None Full Exam - Dermatology Integument insp & palp - abdomen Lesion: vesicle 07/26/2017 None Full Exam - Dermatology Integument insp & palp - back Lesion: vesicle 07/26/2017 None Full Exam - Dermatology Integument insp & palp - back Color: erythematous 07/26/2017 None Full Exam - Dermatology Psychiatric orientation Overall: oriented to person, place and time 07/26/2017 None Full Exam - Dermatology Psychiatric mood and affect Overall: normal mood and affect 07/26/2017 None Full Exam - General 1994 Constitutional general appearance Overall: well developed 07/03/2017 None Full Exam - General 1994 Constitutional general appearance Overall: in no acute distress 07/03/2017 None Full Exam - General 1994 Constitutional general appearance Overall: well nourished 07/03/2017 None Full Exam - General 1994 Respiratory auscultation Overall: breath sounds clear bilaterally 07/03/2017 None Full Exam - General 1994 Respiratory respiratory effort/rhythm Overall: no retractions 07/03/2017 None Full Exam - General 1994 Respiratory respiratory effort/rhythm Overall: normal rate 07/03/2017 None Full Exam - General 1994 Cardiovascular auscultation of heart Overall: regular rate 07/03/2017 None Full Exam - General 1994 Cardiovascular auscultation of heart Overall: normal heart sounds 07/03/2017 None Full Exam - General 1994 Cardiovascular auscultation of heart Overall: no murmurs 07/03/2017 None Full Exam - General 1994 Musculoskeletal lower extremity Inspection - foot: redness 07/03/2017 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 with approx 3cm x 3cm wound opening-boggy - culture obtain, 0.5cm ulcer anterior ankle Full Exam - General 1994 Psychiatric orientation/consciousness Overall: oriented to person, place and time 07/03/2017 None Full Exam - Dermatology Constitutional general appearance Overall: well developed 06/29/2017 None Full Exam - Dermatology Constitutional general appearance Overall: well nourished 06/29/2017 None Full Exam - Dermatology Constitutional general appearance Overall: in no acute distress 06/29/2017 None Full Exam - Dermatology Constitutional general appearance Overall: well groomed 06/29/2017 None Full Exam - Dermatology Psychiatric orientation Overall: oriented to person, place and time 06/29/2017 None Full Exam - Dermatology Integument insp & palp - left upper extremity Location: on the forearm 06/29/2017 1cm healing laceration anterior forearm and 2cm superficial abrasion lateral forearm Full Exam - General 1994 Musculoskeletal lower extremity Inspection - foot: redness 06/18/2017 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, area approx 6cm x 5cm and macerated, 1+ edema noted to right ankle Full Exam - General 1994 Constitutional general appearance Overall: well developed 06/18/2017 None Full Exam - General 1994 Constitutional general appearance Overall: in no acute distress 06/18/2017 None Full Exam - General 1994 Constitutional general appearance Overall: well nourished 06/18/2017 None Full Exam - General 1994 Respiratory auscultation Overall: breath sounds clear bilaterally 06/18/2017 None Full Exam - General 1994 Respiratory respiratory effort/rhythm Overall: no retractions 06/18/2017 None Full Exam - General 1994 Respiratory respiratory effort/rhythm Overall: normal rate 06/18/2017 None Full Exam - General 1994 Cardiovascular auscultation of heart Overall: no murmurs 06/18/2017 None Full Exam - General 1994 Cardiovascular auscultation of heart Overall: normal heart sounds 06/18/2017 None Full Exam - General 1994 Cardiovascular auscultation of heart Overall: regular rate 06/18/2017 None Full Exam - General 1994 Psychiatric orientation/consciousness Overall: oriented to person, place and time 06/18/2017 None Full Exam - General 1994 Constitutional general appearance Development: well developed 06/07/2017 None Full Exam - General 1994 Constitutional general appearance Development: appears stated age 0806/07/2017 None Full Exam - General 1994 Constitutional general appearance Overall: in no acute distress 06/07/2017 None Full Exam - General 1994 Constitutional general appearance Overall: well nourished 06/07/2017 None Full Exam - General 1994 Eyes conjunctiva /eyelids Overall: conjunctiva clear 06/07/2017 None Full Exam - General 1994 Eyes conjunctiva /eyelids Overall: cornea clear 06/07/2017 None Full Exam - General 1994 Eyes conjunctiva /eyelids Overall: eyelids normal 06/07/2017 None Full Exam - General 1994 Eyes pupils and irises Overall: pupils equal, round, reactive to light and accomodation 06/07/2017 None Full Exam - General 1994 Ears/Nose/Throat otoscopic exam Overall: external auditory canals clear 06/07/2017 None Full Exam - General 1994 Ears/Nose/Throat otoscopic exam Overall: tympanic membranes clear 06/07/2017 None Full Exam - General 1994 Ears/Nose/Throat lips/teeth/gingiva Overall: benign lips 06/07/2017 None Full Exam - General 1994 Ears/Nose/Throat lips/teeth/gingiva Overall: normal dentition 06/07/2017 None Full Exam - General 1994 Neck thyroid Overall: normal size 01/2017 None Full Exam - General 1994 Neck thyroid Overall: normal consistency 06/07/2017 None Full Exam - General 1994 Neck thyroid Overall: nontender 2016 None Full Exam - General 1994 Respiratory auscultation Overall: breath sounds clear bilaterally 06/07/2017 None Full Exam - General 1994 Respiratory respiratory effort/rhythm Overall: no retractions 06/07/2017 None Full Exam - General 1994 Respiratory respiratory effort/rhythm Overall: normal rate 06/07/2017 None Full Exam - General 1994 Cardiovascular extremities Overall: no clubbing 06/07/2017 None Full Exam - General 1994 Cardiovascular auscultation of heart Overall: regular rate 06/07/2017 None Full Exam - General 1994 Cardiovascular auscultation of heart Overall: normal heart sounds 06/07/2017 None Full Exam - General 1994 Cardiovascular auscultation of heart Overall: no murmurs 06/07/2017 None Full Exam - General 1994 Abdomen abdominal exam Overall: no tenderness 06/07/2017 None Full Exam - General 1994 Abdomen abdominal exam Overall: normal bowel sounds 06/07/2017 None Full Exam - General 1994 Lymphatic neck nodes Overall: anterior cervical chain benign 06/07/2017 None Full Exam - General 1994 Lymphatic neck nodes Overall: posterior cervical chain benign 06/07/2017 None Full Exam - General 1994 Musculoskeletal head and neck Overall: head atraumatic 06/07/2017 None Full Exam - General 1994 Integument inspection of skin Overall: few scattered moles, no gross abnormalities 06/07/2017 None Full Exam - General 1994 Neurologic mental status Overall: alert 06/07/2017 None Full Exam - General 1994 Neurologic mental status Overall: oriented 06/07/2017 None Full Exam - General 1994 Psychiatric orientation/consciousness Overall: oriented to person, place and time 06/07/2017 None Full Exam - General 1994 Psychiatric mood and affect Overall: normal mood and affect 06/07/2017 None Full Exam - General 1994 Ears/Nose/Throat oral cavity/pharynx/larynx Overall: oral mucosa clear 06/07/2017 erythema of posterior pharynx Full Exam - General 1994 Musculoskeletal lower extremity Inspection - foot: redness 06/07/2017 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 -sutures in intact with purulent drainge and erythema to midfoot , 1+ edema noted to right ankle Full Exam - General 1994 Constitutional general appearance Development: well developed 05/17/2017 None Full Exam - General 1994 Constitutional general appearance Development: appears stated age 0705/17/2017 None Full Exam - General 1994 Constitutional general appearance Overall: in no acute distress 05/17/2017 None Full Exam - General 1994 Constitutional general appearance Overall: well nourished 05/17/2017 None Full Exam - General 1994 Eyes conjunctiva /eyelids Overall: conjunctiva clear 05/17/2017 None Full Exam - General 1994 Eyes conjunctiva /eyelids Overall: cornea clear 05/17/2017 None Full Exam - General 1994 Eyes conjunctiva /eyelids Overall: eyelids normal 05/17/2017 None Full Exam - General 1994 Eyes pupils and irises Overall: pupils equal, round, reactive to light and accomodation 05/17/2017 None Full Exam - General 1994 Ears/Nose/Throat otoscopic exam Overall: external auditory canals clear 05/17/2017 None Full Exam - General 1994 Ears/Nose/Throat otoscopic exam Overall: tympanic membranes clear 05/17/2017 None Full Exam - General 1994 Ears/Nose/Throat lips/teeth/gingiva Overall: benign lips 05/17/2017 None Full Exam - General 1994 Ears/Nose/Throat lips/teeth/gingiva Overall: normal dentition 05/17/2017 None Full Exam - General 1994 Ears/Nose/Throat oral cavity/pharynx/larynx Overall: oral mucosa clear 05/17/2017 None Full Exam - General 1994 Neck thyroid Overall: normal size None Full Exam - General 1994 Neck thyroid Overall: normal consistency 05/17/2017 None Full Exam - General 1994 Neck thyroid Overall: nontender 2016 None Full Exam - General 1994 Respiratory auscultation Overall: breath sounds clear bilaterally 05/17/2017 None Full Exam - General 1994 Respiratory respiratory effort/rhythm Overall: no retractions 05/17/2017 None Full Exam - General 1994 Respiratory respiratory effort/rhythm Overall: normal rate 05/17/2017 None Full Exam - General 1994 Cardiovascular extremities Overall: no clubbing 05/17/2017 None Full Exam - General 1994 Cardiovascular auscultation of heart Overall: regular rate 05/17/2017 None Full Exam - General 1994 Cardiovascular auscultation of heart Overall: normal heart sounds 05/17/2017 None Full Exam - General 1994 Cardiovascular auscultation of heart Overall: no murmurs 05/17/2017 None Full Exam - General 1994 Abdomen abdominal exam Overall: no tenderness 05/17/2017 None Full Exam - General 1994 Abdomen abdominal exam Overall: normal bowel sounds 05/17/2017 None Full Exam - General 1994 Lymphatic neck nodes Overall: anterior cervical chain benign 05/17/2017 None Full Exam - General 1994 Lymphatic neck nodes Overall: posterior cervical chain benign 05/17/2017 None Full Exam - General 1994 Musculoskeletal head and neck Overall: head atraumatic 05/17/2017 None Full Exam - General 1994 Integument inspection of skin Overall: few scattered moles, no gross abnormalities 05/17/2017 None Full Exam - General 1994 Neurologic mental status Overall: alert 05/17/2017 None Full Exam - General 1994 Neurologic mental status Overall: oriented 05/17/2017 None Full Exam - General 1994 Psychiatric orientation/consciousness Overall: oriented to person, place and time 05/17/2017 None Full Exam - General 1994 Psychiatric mood and affect Overall: normal mood and affect 05/17/2017 None Full Exam - General 1994 Constitutional general appearance Development: well developed 05/04/2017 None Full Exam - General 1994 Constitutional general appearance Development: appears stated age 0605/04/2017 None Full Exam - General 1994 Constitutional general appearance Overall: in no acute distress 05/04/2017 None Full Exam - General 1994 Constitutional general appearance Overall: well nourished 05/04/2017 None Full Exam - General 1994 Respiratory auscultation Overall: breath sounds clear bilaterally 05/04/2017 None Full Exam - General 1994 Respiratory respiratory effort/rhythm Overall: no retractions 05/04/2017 None Full Exam - General 1994 Respiratory respiratory effort/rhythm Overall: normal rate 05/04/2017 None Full Exam - General 1994 Cardiovascular auscultation of heart Overall: regular rate 05/04/2017 None Full Exam - General 1994 Cardiovascular auscultation of heart Overall: normal heart sounds 05/04/2017 None Full Exam - General 1994 Cardiovascular auscultation of heart Overall: no murmurs 05/04/2017 None Full Exam - General 1994 Psychiatric orientation/consciousness Overall: oriented to person, place and time 05/04/2017 None Full Exam - General 1994 Integument inspection of skin Location: right leg 05/04/2017 patch right thigh-pruritic Full Exam - General 1994 Integument inspection of skin Location: left arm 05/04/2017 None Full Exam - General 1994 Integument inspection of skin Location: right arm 05/04/2017 linear vesicular rash Full Exam - General 1994 Integument inspection of skin Location: face 05/04/2017 patch left pentecostalism Full Exam - General 1994 Constitutional general appearance Development: well developed 03/15/2017 None Full Exam - General 1994 Constitutional general appearance Development: appears stated age 0503/15/2017 None Full Exam - General 1994 Constitutional general appearance Overall: in no acute distress 03/15/2017 None Full Exam - General 1994 Constitutional general appearance Overall: well nourished 03/15/2017 None Full Exam - General 1994 Eyes conjunctiva /eyelids Overall: conjunctiva clear 03/15/2017 None Full Exam - General 1994 Eyes conjunctiva /eyelids Overall: cornea clear 03/15/2017 None Full Exam - General 1994 Eyes conjunctiva /eyelids Overall: eyelids normal 03/15/2017 None Full Exam - General 1994 Eyes pupils and irises Overall: pupils equal, round, reactive to light and accomodation 03/15/2017 None Full Exam - General 1994 Ears/Nose/Throat otoscopic exam Overall: external auditory canals clear 03/15/2017 None Full Exam - General 1994 Ears/Nose/Throat otoscopic exam Overall: tympanic membranes clear 03/15/2017 None Full Exam - General 1994 Ears/Nose/Throat lips/teeth/gingiva Overall: benign lips 03/15/2017 None Full Exam - General 1994 Ears/Nose/Throat lips/teeth/gingiva Overall: normal dentition 03/15/2017 None Full Exam - General 1994 Ears/Nose/Throat oral cavity/pharynx/larynx Overall: oral mucosa clear 03/15/2017 None Full Exam - General 1994 Neck thyroid Overall: normal size 09/2017 None Full Exam - General 1994 Neck thyroid Overall: normal consistency 03/15/2017 None Full Exam - General 1994 Neck thyroid Overall: nontender 2016 None Full Exam - General 1994 Respiratory auscultation Overall: breath sounds clear bilaterally 03/15/2017 None Full Exam - General 1994 Respiratory respiratory effort/rhythm Overall: no retractions 03/15/2017 None Full Exam - General 1994 Respiratory respiratory effort/rhythm Overall: normal rate 03/15/2017 None Full Exam - General 1994 Cardiovascular extremities Overall: no clubbing 03/15/2017 None Full Exam - General 1994 Cardiovascular auscultation of heart Overall: regular rate 03/15/2017 None Full Exam - General 1994 Cardiovascular auscultation of heart Overall: normal heart sounds 03/15/2017 None Full Exam - General 1994 Cardiovascular auscultation of heart Overall: no murmurs 03/15/2017 None Full Exam - General 1994 Abdomen abdominal exam Overall: no tenderness 03/15/2017 None Full Exam - General 1994 Abdomen abdominal exam Overall: normal bowel sounds 03/15/2017 None Full Exam - General 1994 Lymphatic neck nodes Overall: anterior cervical chain benign 03/15/2017 None Full Exam - General 1994 Lymphatic neck nodes Overall: posterior cervical chain benign 03/15/2017 None Full Exam - General 1994 Musculoskeletal head and neck Overall: head atraumatic 03/15/2017 None Full Exam - General 1994 Integument inspection of skin Overall: few scattered moles, no gross abnormalities 03/15/2017 None Full Exam - General 1994 Neurologic mental status Overall: alert 03/15/2017 None Full Exam - General 1994 Neurologic mental status Overall: oriented 03/15/2017 None Full Exam - General 1994 Psychiatric orientation/consciousness Overall: oriented to person, place and time 03/15/2017 None Full Exam - General 1994 Psychiatric mood and affect Overall: normal mood and affect 03/15/2017 None Full Exam - General 1994 Constitutional general appearance Development: well developed 03/01/2017 None Full Exam - General 1994 Constitutional general appearance Development: appears stated age 0403/01/2017 None Full Exam - General 1994 Constitutional general appearance Overall: in no acute distress 03/01/2017 None Full Exam - General 1994 Constitutional general appearance Overall: well nourished 03/01/2017 None Full Exam - General 1994 Eyes conjunctiva /eyelids Overall: conjunctiva clear 03/01/2017 None Full Exam - General 1994 Eyes conjunctiva /eyelids Overall: cornea clear 03/01/2017 None Full Exam - General 1994 Eyes conjunctiva /eyelids Overall: eyelids normal 03/01/2017 None Full Exam - General 1994 Eyes pupils and irises Overall: pupils equal, round, reactive to light and accomodation 03/01/2017 None Full Exam - General 1994 Ears/Nose/Throat otoscopic exam Overall: external auditory canals clear 03/01/2017 None Full Exam - General 1994 Ears/Nose/Throat otoscopic exam Overall: tympanic membranes clear 03/01/2017 None Full Exam - General 1994 Ears/Nose/Throat lips/teeth/gingiva Overall: benign lips 03/01/2017 None Full Exam - General 1994 Ears/Nose/Throat lips/teeth/gingiva Overall: normal dentition 03/01/2017 None Full Exam - General 1994 Ears/Nose/Throat oral cavity/pharynx/larynx Overall: oral mucosa clear 03/01/2017 None Full Exam - General 1994 Neck thyroid Overall: normal size None Full Exam - General 1994 Neck thyroid Overall: normal consistency 03/01/2017 None Full Exam - General 1994 Neck thyroid Overall: nontender 2016 None Full Exam - General 1994 Respiratory auscultation Overall: breath sounds clear bilaterally 03/01/2017 None Full Exam - General 1994 Respiratory respiratory effort/rhythm Overall: no retractions 03/01/2017 None Full Exam - General 1994 Respiratory respiratory effort/rhythm Overall: normal rate 03/01/2017 None Full Exam - General 1994 Cardiovascular extremities Overall: no clubbing 03/01/2017 None Full Exam - General 1994 Cardiovascular auscultation of heart Overall: regular rate 03/01/2017 None Full Exam - General 1994 Cardiovascular auscultation of heart Overall: normal heart sounds 03/01/2017 None Full Exam - General 1994 Cardiovascular auscultation of heart Overall: no murmurs 03/01/2017 None Full Exam - General 1994 Abdomen abdominal exam Overall: no tenderness 03/01/2017 None Full Exam - General 1994 Abdomen abdominal exam Overall: normal bowel sounds 03/01/2017 None Full Exam - General 1994 Lymphatic neck nodes Overall: anterior cervical chain benign 03/01/2017 None Full Exam - General 1994 Lymphatic neck nodes Overall: posterior cervical chain benign 03/01/2017 None Full Exam - General 1994 Musculoskeletal head and neck Overall: head atraumatic 03/01/2017 None Full Exam - General 1994 Integument inspection of skin Overall: few scattered moles, no gross abnormalities 03/01/2017 None Full Exam - General 1994 Neurologic mental status Overall: alert 03/01/2017 None Full Exam - General 1994 Neurologic mental status Overall: oriented 03/01/2017 None Full Exam - General 1994 Psychiatric orientation/consciousness Overall: oriented to person, place and time 03/01/2017 None Full Exam - General 1994 Psychiatric mood and affect Overall: normal mood and affect 03/01/2017 None Full Exam - General 1994 Constitutional general appearance Development: well developed 02/16/2017 None Full Exam - General 1994 Constitutional general appearance Development: appears stated age 0402/16/2017 None Full Exam - General 1994 Constitutional general appearance Overall: in no acute distress 02/16/2017 None Full Exam - General 1994 Constitutional general appearance Overall: well nourished 02/16/2017 None Full Exam - General 1994 Eyes conjunctiva /eyelids Overall: conjunctiva clear 02/16/2017 None Full Exam - General 1994 Eyes conjunctiva /eyelids Overall: cornea clear 02/16/2017 None Full Exam - General 1994 Eyes conjunctiva /eyelids Overall: eyelids normal 02/16/2017 None Full Exam - General 1994 Eyes pupils and irises Overall: pupils equal, round, reactive to light and accomodation 02/16/2017 None Full Exam - General 1994 Ears/Nose/Throat otoscopic exam Overall: external auditory canals clear 02/16/2017 None Full Exam - General 1994 Ears/Nose/Throat otoscopic exam Overall: tympanic membranes clear 02/16/2017 None Full Exam - General 1994 Ears/Nose/Throat lips/teeth/gingiva Overall: benign lips 02/16/2017 None Full Exam - General 1994 Ears/Nose/Throat lips/teeth/gingiva Overall: normal dentition 02/16/2017 None Full Exam - General 1994 Ears/Nose/Throat oral cavity/pharynx/larynx Overall: oral mucosa clear 02/16/2017 None Full Exam - General 1994 Neck thyroid Overall: normal size None Full Exam - General 1994 Neck thyroid Overall: normal consistency 02/16/2017 None Full Exam - General 1994 Neck thyroid Overall: nontender 2016 None Full Exam - General 1994 Respiratory auscultation Overall: breath sounds clear bilaterally 02/16/2017 None Full Exam - General 1994 Respiratory respiratory effort/rhythm Overall: no retractions 02/16/2017 None Full Exam - General 1994 Respiratory respiratory effort/rhythm Overall: normal rate 02/16/2017 None Full Exam - General 1994 Cardiovascular extremities Overall: no clubbing 02/16/2017 None Full Exam - General 1994 Cardiovascular auscultation of heart Overall: regular rate 02/16/2017 None Full Exam - General 1994 Cardiovascular auscultation of heart Overall: normal heart sounds 02/16/2017 None Full Exam - General 1994 Cardiovascular auscultation of heart Overall: no murmurs 02/16/2017 None Full Exam - General 1994 Abdomen abdominal exam Overall: no tenderness 02/16/2017 None Full Exam - General 1994 Abdomen abdominal exam Overall: normal bowel sounds 02/16/2017 None Full Exam - General 1994 Lymphatic neck nodes Overall: anterior cervical chain benign 02/16/2017 None Full Exam - General 1994 Lymphatic neck nodes Overall: posterior cervical chain benign 02/16/2017 None Full Exam - General 1994 Musculoskeletal head and neck Overall: head atraumatic 02/16/2017 None Full Exam - General 1994 Integument inspection of skin Overall: few scattered moles, no gross abnormalities 02/16/2017 None Full Exam - General 1994 Neurologic mental status Overall: alert 02/16/2017 None Full Exam - General 1994 Neurologic mental status Overall: oriented 02/16/2017 None Full Exam - General 1994 Psychiatric orientation/consciousness Overall: oriented to person, place and time 02/16/2017 None Full Exam - General 1994 Psychiatric mood and affect Overall: normal mood and affect 02/16/2017 None Full Exam - General 1994 Constitutional general appearance Development: well developed 02/12/2017 None Full Exam - General 1994 Constitutional general appearance Development: appears stated age 0402/12/2017 None Full Exam - General 1994 Eyes conjunctiva /eyelids Overall: conjunctiva clear 02/12/2017 None Full Exam - General 1994 Eyes conjunctiva /eyelids Overall: cornea clear 02/12/2017 None Full Exam - General 1994 Eyes conjunctiva /eyelids Overall: eyelids normal 02/12/2017 None Full Exam - General 1994 Eyes pupils and irises Overall: pupils equal, round, reactive to light and accomodation 02/12/2017 None Full Exam - General 1994 Ears/Nose/Throat otoscopic exam Overall: external auditory canals clear 02/12/2017 None Full Exam - General 1994 Ears/Nose/Throat otoscopic exam Overall: tympanic membranes clear 02/12/2017 None Full Exam - General 1994 Ears/Nose/Throat lips/teeth/gingiva Overall: benign lips 02/12/2017 None Full Exam - General 1994 Ears/Nose/Throat lips/teeth/gingiva Overall: normal dentition 02/12/2017 None Full Exam - General 1994 Ears/Nose/Throat oral cavity/pharynx/larynx Overall: oral mucosa clear 02/12/2017 None Full Exam - General 1994 Neck thyroid Overall: normal size 08/2017 None Full Exam - General 1994 Neck thyroid Overall: normal consistency 02/12/2017 None Full Exam - General 1994 Neck thyroid Overall: nontender 2016 None Full Exam - General 1994 Respiratory auscultation Overall: breath sounds clear bilaterally 02/12/2017 None Full Exam - General 1994 Respiratory respiratory effort/rhythm Overall: no retractions 02/12/2017 None Full Exam - General 1994 Respiratory respiratory effort/rhythm Overall: normal rate 02/12/2017 None Full Exam - General 1994 Cardiovascular auscultation of heart Overall: regular rate 02/12/2017 None Full Exam - General 1994 Cardiovascular auscultation of heart Overall: normal heart sounds 02/12/2017 None Full Exam - General 1994 Cardiovascular auscultation of heart Overall: no murmurs 02/12/2017 None Full Exam - General 1994 Abdomen abdominal exam Overall: no tenderness 02/12/2017 None Full Exam - General 1994 Abdomen abdominal exam Overall: normal bowel sounds 02/12/2017 None Full Exam - General 1994 Lymphatic neck nodes Overall: anterior cervical chain benign 02/12/2017 None Full Exam - General 1994 Lymphatic neck nodes Overall: posterior cervical chain benign 02/12/2017 None Full Exam - General 1994 Integument inspection of skin Overall: few scattered moles, no gross abnormalities 02/12/2017 None Full Exam - General 1994 Neurologic mental status Overall: alert 02/12/2017 None Full Exam - General 1994 Neurologic mental status Overall: oriented 02/12/2017 None Full Exam - General 1994 Psychiatric orientation/consciousness Overall: oriented to person, place and time 02/12/2017 None Full Exam - General 1994 Psychiatric mood and affect Overall: normal mood and affect 02/12/2017 None Full Exam - General 1994 Constitutional general appearance Overall: in no acute distress 02/12/2017 None Full Exam - General 1994 Constitutional general appearance Overall: well nourished 02/12/2017 None Full Exam - General 1994 Cardiovascular extremities Overall: no clubbing 02/12/2017 None Full Exam - General 1994 Musculoskeletal head and neck Overall: head atraumatic 02/12/2017 None Full Exam - General 1994 Constitutional general appearance Overall: well developed 02/05/2017 None Full Exam - General 1994 Eyes conjunctiva /eyelids Overall: conjunctiva clear 02/05/2017 None Full Exam - General 1994 Eyes pupils and irises Overall: pupils equal, round, reactive to light and accomodation 02/05/2017 None Full Exam - General 1994 Ears/Nose/Throat otoscopic exam Overall: external auditory canals clear 02/05/2017 None Full Exam - General 1994 Ears/Nose/Throat otoscopic exam Overall: tympanic membranes clear 02/05/2017 None Full Exam - General 1994 Ears/Nose/Throat oral cavity/pharynx/larynx Overall: oral mucosa clear 02/05/2017 None Full Exam - General 1994 Respiratory auscultation Overall: breath sounds clear bilaterally 02/05/2017 None Full Exam - General 1994 Respiratory respiratory effort/rhythm Overall: no retractions 02/05/2017 None Full Exam - General 1994 Respiratory respiratory effort/rhythm Overall: normal rate 02/05/2017 None Full Exam - General 1994 Cardiovascular extremities Overall: no clubbing 02/05/2017 None Full Exam - General 1994 Cardiovascular auscultation of heart Overall: regular rate 02/05/2017 None Full Exam - General 1994 Cardiovascular auscultation of heart Overall: normal heart sounds 02/05/2017 None Full Exam - General 1994 Cardiovascular auscultation of heart Overall: no murmurs 02/05/2017 None Full Exam - General 1994 Abdomen abdominal exam Overall: no tenderness 02/05/2017 None Full Exam - General 1994 Abdomen abdominal exam Bowel sounds: hypoactive 02/05/2017 None Full Exam - General 1994 Lymphatic neck nodes Overall: anterior cervical chain benign 02/05/2017 None Full Exam - General 1994 Lymphatic neck nodes Overall: posterior cervical chain benign 02/05/2017 None Full Exam - General 1994 Musculoskeletal gait and station Gait: asymmetric 02/05/2017 None Full Exam - General 1994 Neurologic mental status Level of alertness: lethargic 02/05/2017 None Full Exam - General 1994 Neurologic gait Conventional walking: ataxic rhythm 02/05/2017 decreased strength RUE/RLE 4/5, LUE /LLE 5/5 Full Exam - General 1994 Psychiatric orientation/consciousness Overall: oriented to person, place and time 02/05/2017 None Full Exam - General 1994 Constitutional general appearance Overall: in no acute distress 02/05/2017 None Full Exam - General 1994 Constitutional general appearance Overall: well nourished 02/05/2017 None Full Exam - General 1994 Constitutional general appearance Overall: well developed 01/29/2017 moderate confusion- difficulty finding words Full Exam - General 1994 Eyes conjunctiva /eyelids Overall: conjunctiva clear 01/29/2017 None Full Exam - General 1994 Eyes pupils and irises Overall: pupils equal, round, reactive to light and accomodation 01/29/2017 None Full Exam - General 1994 Ears/Nose/Throat otoscopic exam Overall: external auditory canals clear 01/29/2017 None Full Exam - General 1994 Ears/Nose/Throat otoscopic exam Overall: tympanic membranes clear 01/29/2017 None Full Exam - General 1994 Ears/Nose/Throat oral cavity/pharynx/larynx Overall: oral mucosa clear 01/29/2017 None Full Exam - General 1994 Respiratory auscultation Overall: breath sounds clear bilaterally 01/29/2017 None Full Exam - General 1994 Respiratory respiratory effort/rhythm Overall: no retractions 01/29/2017 None Full Exam - General 1994 Respiratory respiratory effort/rhythm Overall: normal rate 01/29/2017 None Full Exam - General 1994 Cardiovascular auscultation of heart Overall: regular rate 01/29/2017 None Full Exam - General 1994 Cardiovascular auscultation of heart Overall: normal heart sounds 01/29/2017 None Full Exam - General 1994 Abdomen abdominal exam Overall: no tenderness 01/29/2017 None Full Exam - General 1994 Lymphatic neck nodes Overall: anterior cervical chain benign 01/29/2017 None Full Exam - General 1994 Lymphatic neck nodes Overall: posterior cervical chain benign 01/29/2017 None Full Exam - General 1994 Psychiatric orientation/consciousness Overall: oriented to person, place and time 01/29/2017 None Full Exam - General 1994 Cardiovascular auscultation of heart Overall: no murmurs 01/29/2017 None Full Exam - General 1994 Cardiovascular extremities Overall: no clubbing 01/29/2017 None Full Exam - General 1994 Abdomen abdominal exam Bowel sounds: hypoactive 01/29/2017 None Full Exam - General 1994 Musculoskeletal gait and station Gait: asymmetric 01/29/2017 unsteady Full Exam - General 1994 Neurologic gait Conventional walking: ataxic rhythm 01/29/2017 decreased strength RUE/RLE 3/5, LUE /LLE 5/5 Full Exam - General 1994 Neurologic mental status Level of alertness: lethargic 01/29/2017 oriented to person/ place but not time Full Exam - Dermatology Constitutional general appearance Overall: well nourished 10/09/2016 None Full Exam - Dermatology Constitutional general appearance Overall: well developed 10/09/2016 None Full Exam - Dermatology Constitutional general appearance Overall: in no acute distress 10/09/2016 None Full Exam - Dermatology Constitutional general appearance Overall: of normal body habitus 10/09/2016 None Full Exam - Dermatology Constitutional general appearance Overall: well groomed 10/09/2016 None Full Exam - Dermatology Integument insp & palp - right lower extremity Location: on the foot 10/09/2016 scabbed lesion end of right foot and top of right great toe Full Exam - Dermatology Integument insp & palp - right lower extremity Color: erythematous 10/09/2016 erythema and swelling of right great toe (all other toes missing)/foot and extends to midfoot. -Improved Full Exam - Dermatology Psychiatric orientation Overall: oriented to person, place and time 10/09/2016 None Full Exam - Dermatology Constitutional general appearance Overall: well nourished 10/06/2016 None Full Exam - Dermatology Constitutional general appearance Overall: well developed 10/06/2016 None Full Exam - Dermatology Constitutional general appearance Overall: in no acute distress 10/06/2016 None Full Exam - Dermatology Constitutional general appearance Overall: of normal body habitus 10/06/2016 None Full Exam - Dermatology Constitutional general appearance Overall: well groomed 10/06/2016 None Full Exam - Dermatology Psychiatric orientation Overall: oriented to person, place and time 10/06/2016 None Full Exam - Dermatology Integument insp & palp - right lower extremity Location: on the foot 10/06/2016 None Full Exam - Dermatology Integument insp & palp - right lower extremity Color: erythematous 10/06/2016 erythema and swelling of right great toe (all other toes missing)/foot and extends to right ankle. Full Exam - General 1994 Constitutional general appearance Overall: well developed 07/18/2016 None Full Exam - General 1994 Constitutional general appearance Overall: in no acute distress 07/18/2016 None Full Exam - General 1994 Constitutional general appearance Overall: well nourished 07/18/2016 None Full Exam - General 1994 Eyes conjunctiva /eyelids Overall: conjunctiva clear 07/18/2016 None Full Exam - General 1994 Eyes pupils and irises Overall: pupils equal, round, reactive to light and accomodation 07/18/2016 None Full Exam - General 1994 Ears/Nose/Throat otoscopic exam Overall: external auditory canals clear 07/18/2016 None Full Exam - General 1994 Ears/Nose/Throat otoscopic exam Overall: tympanic membranes clear 07/18/2016 None Full Exam - General 1994 Ears/Nose/Throat oral cavity/pharynx/larynx Overall: oral mucosa clear 07/18/2016 None Full Exam - General 1994 Respiratory auscultation Overall: breath sounds clear bilaterally 07/18/2016 None Full Exam - General 1994 Respiratory respiratory effort/rhythm Overall: no retractions 07/18/2016 None Full Exam - General 1994 Respiratory respiratory effort/rhythm Overall: normal rate 07/18/2016 None Full Exam - General 1994 Cardiovascular auscultation of heart Overall: regular rate 07/18/2016 None Full Exam - General 1994 Cardiovascular auscultation of heart Overall: normal heart sounds 07/18/2016 None Full Exam - General 1994 Abdomen abdominal exam Overall: no tenderness 07/18/2016 None Full Exam - General 1994 Abdomen abdominal exam Overall: normal bowel sounds 07/18/2016 None Full Exam - General 1994 Lymphatic neck nodes Overall: anterior cervical chain benign 07/18/2016 None Full Exam - General 1994 Lymphatic neck nodes Overall: posterior cervical chain benign 07/18/2016 None Full Exam - General 1994 Neurologic sensation Touch: (specify location of deficit): two-point discrimination _ 07/18/2016 None Full Exam - General 1994 Neurologic sensation Touch: (specify location of deficit): decreased 07/18/2016 missing toes 2 -5 left foot and middle toes x 2 right foot Full Exam - General 1994 Psychiatric orientation/consciousness Overall: oriented to person, place and time 07/18/2016 None Full Exam - General 1994 Integument inspection of skin Location: left foot 07/18/2016 ulcer tip of 4th toe Full Exam - General 1994 Musculoskeletal lower extremity Inspection - foot: claw toes 07/18/2016 None Full Exam - General 1994 Constitutional general appearance Overall: well developed 06/22/2016 None Full Exam - General 1994 Constitutional general appearance Overall: in no acute distress 06/22/2016 None Full Exam - General 1994 Constitutional general appearance Overall: well nourished 06/22/2016 None Full Exam - General 1994 Eyes conjunctiva /eyelids Overall: conjunctiva clear 06/22/2016 None Full Exam - General 1994 Eyes pupils and irises Overall: pupils equal, round, reactive to light and accomodation 06/22/2016 None Full Exam - General 1994 Ears/Nose/Throat otoscopic exam Overall: external auditory canals clear 06/22/2016 None Full Exam - General 1994 Ears/Nose/Throat otoscopic exam Overall: tympanic membranes clear 06/22/2016 None Full Exam - General 1994 Ears/Nose/Throat oral cavity/pharynx/larynx Overall: oral mucosa clear 06/22/2016 None Full Exam - General 1994 Respiratory auscultation Overall: breath sounds clear bilaterally 06/22/2016 None Full Exam - General 1994 Respiratory respiratory effort/rhythm Overall: no retractions 06/22/2016 None Full Exam - General 1994 Respiratory respiratory effort/rhythm Overall: normal rate 06/22/2016 None Full Exam - General 1994 Cardiovascular auscultation of heart Overall: regular rate 06/22/2016 None Full Exam - General 1994 Cardiovascular auscultation of heart Overall: normal heart sounds 06/22/2016 None Full Exam - General 1994 Abdomen abdominal exam Overall: no tenderness 06/22/2016 None Full Exam - General 1994 Abdomen abdominal exam Overall: normal bowel sounds 06/22/2016 None Full Exam - General 1994 Lymphatic neck nodes Overall: anterior cervical chain benign 06/22/2016 None Full Exam - General 1994 Lymphatic neck nodes Overall: posterior cervical chain benign 06/22/2016 None Full Exam - General 1994 Integument inspection of skin Overall: no rash, lesions 06/22/2016 None Full Exam - General 1994 Neurologic sensation Touch: (specify location of deficit): two-point discrimination _ 06/22/2016 None Full Exam - General 1994 Neurologic sensation Touch: (specify location of deficit): decreased 06/22/2016 missing toes 2 -5 left foot and middle toes x 2 right foot Full Exam - General 1994 Psychiatric orientation/consciousness Overall: oriented to person, place and time 06/22/2016 None Full Exam - General 1994 Constitutional general appearance Overall: well developed 05/23/2016 None Full Exam - General 1994 Constitutional general appearance Overall: in no acute distress 05/23/2016 None Full Exam - General 1994 Constitutional general appearance Overall: well nourished 05/23/2016 None Full Exam - General 1994 Eyes conjunctiva /eyelids Overall: conjunctiva clear 05/23/2016 None Full Exam - General 1994 Eyes pupils and irises Overall: pupils equal, round, reactive to light and accomodation 05/23/2016 None Full Exam - General 1994 Ears/Nose/Throat otoscopic exam Overall: external auditory canals clear 05/23/2016 None Full Exam - General 1994 Ears/Nose/Throat otoscopic exam Overall: tympanic membranes clear 05/23/2016 None Full Exam - General 1994 Ears/Nose/Throat oral cavity/pharynx/larynx Overall: oral mucosa clear 05/23/2016 None Full Exam - General 1994 Respiratory auscultation Overall: breath sounds clear bilaterally 05/23/2016 None Full Exam - General 1994 Respiratory respiratory effort/rhythm Overall: no retractions 05/23/2016 None Full Exam - General 1994 Respiratory respiratory effort/rhythm Overall: normal rate 05/23/2016 None Full Exam - General 1994 Cardiovascular auscultation of heart Overall: regular rate 05/23/2016 None Full Exam - General 1994 Cardiovascular auscultation of heart Overall: normal heart sounds 05/23/2016 None Full Exam - General 1994 Abdomen abdominal exam Overall: no tenderness 05/23/2016 None Full Exam - General 1994 Abdomen abdominal exam Overall: normal bowel sounds 05/23/2016 None Full Exam - General 1994 Lymphatic neck nodes Overall: anterior cervical chain benign 05/23/2016 None Full Exam - General 1994 Lymphatic neck nodes Overall: posterior cervical chain benign 05/23/2016 None Full Exam - General 1994 Integument inspection of skin Overall: no rash, lesions 05/23/2016 None Full Exam - General 1994 Neurologic sensation Touch: (specify location of deficit): two-point discrimination _ 05/23/2016 None Full Exam - General 1994 Neurologic sensation Touch: (specify location of deficit): decreased 05/23/2016 missing toes 2 -5 left foot and middle toes x 2 right foot Full Exam - General 1994 Psychiatric orientation/consciousness Overall: oriented to person, place and time 05/23/2016 None Full Exam - General 1994 Constitutional general appearance Overall: well developed 05/15/2016 None Full Exam - General 1994 Constitutional general appearance Overall: in no acute distress 05/15/2016 None Full Exam - General 1994 Constitutional general appearance Overall: well nourished 05/15/2016 None Full Exam - General 1994 Psychiatric orientation/consciousness Overall: oriented to person, place and time 05/15/2016 None Full Exam - General 1994 Integument inspection of skin Overall: no rash, lesions 05/15/2016 None Full Exam - General 1994 Neurologic gait Conventional walking: unsteady 05/15/2016 None Full Exam - General 1994 Neurologic sensation Touch: (specify location of deficit): two-point discrimination _ 05/15/2016 None Full Exam - General 1994 Neurologic sensation Touch: (specify location of deficit): decreased 05/15/2016 missing toes 2 -5 left foot and middle toes x 2 right foot Full Exam - General 1994 Lymphatic neck nodes Overall: anterior cervical chain benign 05/15/2016 None Full Exam - General 1994 Lymphatic neck nodes Overall: posterior cervical chain benign 05/15/2016 None Full Exam - General 1994 Abdomen abdominal exam Overall: no tenderness 05/15/2016 None Full Exam - General 1994 Abdomen abdominal exam Overall: normal bowel sounds 05/15/2016 None Full Exam - General 1994 Cardiovascular auscultation of heart Overall: regular rate 05/15/2016 None Full Exam - General 1994 Cardiovascular auscultation of heart Overall: normal heart sounds 05/15/2016 None Full Exam - General 1994 Respiratory respiratory effort/rhythm Overall: no retractions 05/15/2016 None Full Exam - General 1994 Respiratory respiratory effort/rhythm Overall: normal rate 05/15/2016 None Full Exam - General 1994 Respiratory auscultation Overall: breath sounds clear bilaterally 05/15/2016 None Full Exam - General 1994 Ears/Nose/Throat otoscopic exam Overall: external auditory canals clear 05/15/2016 None Full Exam - General 1994 Ears/Nose/Throat otoscopic exam Overall: tympanic membranes clear 05/15/2016 None Full Exam - General 1994 Ears/Nose/Throat oral cavity/pharynx/larynx Overall: oral mucosa clear 05/15/2016 None Full Exam - General 1994 Eyes conjunctiva /eyelids Overall: conjunctiva clear 05/15/2016 None Full Exam - General 1994 Eyes pupils and irises Overall: pupils equal, round, reactive to light and accomodation 05/15/2016 None Full Exam - General 1994 Constitutional general appearance Overall: well developed 01/20/2016 None Full Exam - General 1994 Constitutional general appearance Overall: in no acute distress 01/20/2016 None Full Exam - General 1994 Constitutional general appearance Overall: well nourished 01/20/2016 None Full Exam - General 1994 Eyes pupils and irises Overall: pupils equal, round, reactive to light and accomodation 01/20/2016 None Full Exam - General 1994 Eyes conjunctiva /eyelids Overall: conjunctiva clear 01/20/2016 None Full Exam - General 1994 Eyes conjunctiva /eyelids Overall: cornea clear 01/20/2016 None Full Exam - General 1994 Eyes conjunctiva /eyelids Overall: eyelids normal 01/20/2016 None Full Exam - General 1994 Ears/Nose/Throat otoscopic exam Overall: external auditory canals clear 01/20/2016 None Full Exam - General 1994 Ears/Nose/Throat otoscopic exam Overall: tympanic membranes clear 01/20/2016 None Full Exam - General 1994 Ears/Nose/Throat lips/teeth/gingiva Overall: benign lips 01/20/2016 None Full Exam - General 1994 Ears/Nose/Throat oral cavity/pharynx/larynx Overall: oral mucosa clear 01/20/2016 None Full Exam - General 1994 Ears/Nose/Throat oral cavity/pharynx/larynx Overall: oropharyngeal mucosa clear 01/20/2016 None Full Exam - General 1994 Ears/Nose/Throat oral cavity/pharynx/larynx Overall: no masses 01/20/2016 None Full Exam - General 1994 Respiratory auscultation Overall: breath sounds clear bilaterally 01/20/2016 None Full Exam - General 1994 Respiratory respiratory effort/rhythm Overall: no retractions 01/20/2016 None Full Exam - General 1994 Respiratory respiratory effort/rhythm Overall: normal rate 01/20/2016 None Full Exam - General 1994 Cardiovascular auscultation of heart Overall: regular rate 01/20/2016 None Full Exam - General 1994 Cardiovascular auscultation of heart Overall: normal heart sounds 01/20/2016 None Full Exam - General 1994 Cardiovascular extremities Overall: no clubbing 01/20/2016 None Full Exam - General 1994 Abdomen abdominal exam Overall: no tenderness 01/20/2016 None Full Exam - General 1994 Abdomen abdominal exam Overall: normal bowel sounds 01/20/2016 None Full Exam - General 1994 Lymphatic neck nodes Overall: anterior cervical chain benign 01/20/2016 None Full Exam - General 1994 Lymphatic neck nodes Overall: posterior cervical chain benign 01/20/2016 None Full Exam - General 1994 Musculoskeletal gait and station Overall: normal gait 01/20/2016 None Full Exam - General 1994 Musculoskeletal gait and station Overall: normal station 01/20/2016 None Full Exam - General 1994 Integument inspection of skin Location: right arm 01/20/2016 None Full Exam - General 1994 Integument inspection of skin Rash/Lesions: vesicle 01/20/2016 None Full Exam - General 1994 Integument inspection of skin Pigmentation: erythematous 01/20/2016 None Full Exam - General 1994 Neurologic gait Overall: no ataxia, no unsteadiness 01/20/2016 None Full Exam - General 1994 Neurologic cranial nerves Overall: crainial nerves 2 - 12 grossly intact 01/20/2016 None Full Exam - General 1994 Psychiatric orientation/consciousness Overall: oriented to person, place and time 01/20/2016 None Full Exam - General 1994 Psychiatric mood and affect Overall: normal mood and affect 01/20/2016 None Full Exam - General 1994 Psychiatric speech Overall: normal quality, no aphasia 01/20/2016 None Full Exam - General 1994 Psychiatric speech Overall: normal quality, quantity, rate 01/20/2016 None Procedures Procedure Codes Date FLU VAC NO PRSV 4 MENA 3 YRS+ CPT-4: 77414 08/16/2017 IMMUNIZATION ADMIN CPT -4: 81435 08/16/2017 URINALYSIS NONAUTO W/O SCOPE CPT-4: 19458 06/21/2017 TRIAMCINOLONE ACET INJ NOS CPT-4: J3301 05/04/2017 THER/PROPH/DIAG INJ SC/IM CPT-4: 40745 05/04/2017 TRIAMCINOLONE ACET INJ NOS CPT-4: J3301 02/16/2017 ROCEPHIN, PER 250 MG CPT-4: J0696 02/16/2017 ROCEPHIN, PER 250 MG CPT-4: J0696 10/06/2016 URINALYSIS NONAUTO W/O SCOPE CPT-4: 66742 07/18/2016 TRIAMCINOLONE ACET INJ NOS CPT-4: J3301 01/20/2016 Vital Signs Date Vital 08/27/2017 Blood Pressure 1: 134/76 Code : 8480-6 Heart Rate 1: 98 bpm Height: SpO2: 97% Weight: 08/16/2017 Blood Pressure 1: 128/80 Code : 8480-6 BMI: 32.0 Code : 83117-7 Heart Rate 1 : 94 bpm Height: 6'2" SpO2: 99% Weight: 249 lbs 07/26/2017 Blood Pressure 1: 130/72 Code : 8480-6 Heart Rate 1: 101 bpm Height: 6'2" SpO2: 97% Weight: 07/03/2017 Blood Pressure 1: 140/82 Code : 8480-6 Heart Rate 1: 105 bpm Height: 6'2" SpO2: 97% Weight: 06/29/2017 Blood Pressure 1: 130/74 Code : 8480-6 Heart Rate 1: 99 bpm Height: 6'2" SpO2: 97% Weight: 06/18/2017 Blood Pressure 1: 166/100 Code: 8480-6 Blood Pressure 1: 156/90 Code: 8480-6 Heart Rate 1: 102 bpm Height: SpO2 : 97% Temperature: 36.6 (C) / 97.9 (F) Weight: 06/07/2017 Blood Pressure 1: 146/86 Code : 8480-6 Heart Rate 1: 95 bpm Height: 6'2" SpO2: 99% 05/17/2017 Blood Pressure 1: 142/92 Code : 8480-6 BMI: 31.8 Code : 25654-2 Heart Rate 1 : 102 bpm Height: 6'2" SpO2: 95% Weight: 248 lbs 05/04/2017 Blood Pressure 1: 144/92 Code : 8480-6 Heart Rate 1: 94 bpm Height: 6'2" SpO2: 97% Weight: 03/15/2017 Blood Pressure 1: 128/84 Code : 8480-6 Heart Rate 1: 90 bpm Respiratory Rate : 16 bpm SpO2: 96% Temperature: 36.3 (C) / 97.4 (F) Weight: 244 lbs 03/01/2017 Blood Pressure 1: 115/86 Code : 8480-6 Heart Rate 1: 93 bpm Respiratory Rate : 16 bpm SpO2: 97% Temperature: 37.1 (C) / 98.7 (F) Weight: 242 lbs 02/16/2017 Blood Pressure 1: 122/72 Code : 8480-6 BMI: 31.8 Code : 89746-9 Heart Rate 1 : 85 bpm Height: 6'2" SpO2: 96% Temperature: 36.6 (C) / 97.9 (F) Weight: 248 lbs 02/12/2017 Blood Pressure 1: 126/76 Code : 8480-6 BMI: 31.8 Code : 29174-4 Heart Rate 1 : 106 bpm Height: 6'2" SpO2: 91% Weight: 248 lbs 02/05/2017 Blood Pressure 1: 146/86 Code : 8480-6 BMI: 31.9 Code : 11422-8 Heart Rate 1 : 98 bpm Height: 6'2" SpO2: 87% Temperature: 36.7 (C) / 98.0 (F) Weight: 248 lbs 8 oz 01/29/2017 Blood Pressure 1: 132/84 Code : 8480-6 BMI: 31.8 Code : 35898-6 Heart Rate 1 : 83 bpm Height: 6'2" SpO2: 97% Weight: 248 lbs 10/13/2016 Blood Pressure 1: 128/72 Code : 8480-6 Heart Rate 1: 86 bpm SpO2: 94% 10/09/2016 Blood Pressure 1: 128/68 Code : 8480-6 Heart Rate 1: 136 bpm SpO2: 94% Temperature: 36.8 (C) / 98.2 (F) 10/06/2016 Blood Pressure 1: 140/80 Code : 8480-6 BMI: 32.1 Code : 27572-5 Heart Rate 1 : 94 bpm Height: 6'2" SpO2: 95% Weight: 250 lbs 07/18/2016 Blood Pressure 1: 128/86 Code : 8480-6 BMI: 32.1 Code : 30854-7 Heart Rate 1 : 89 bpm Height: 6'2" SpO2: 96% Weight: 250 lbs 06/22/2016 Blood Pressure 1: 118/70 Code : 8480-6 BMI: 32.1 Code : 68382-9 Heart Rate 1 : 70 bpm Height: 6'2" SpO2: 97% Weight: 250 lbs 05/23/2016 Blood Pressure 1: 128/80 Code : 8480-6 BMI: 32.1 Code : 07957-9 Heart Rate 1 : 76 bpm Height: 6'2" SpO2: 98% Weight: 250 lbs 05/15/2016 Blood Pressure 1: 110/90 Code : 8480-6 BMI: 31.3 Code : 42814-0 Heart Rate 1 : 111 bpm Height: 6'2" SpO2: 97% Temperature: 36.6 (C) / 97.8 (F) Weight: 244 lbs 01/20/2016 Blood Pressure 1: 128/76 Code : 8480-6 BMI: 33.0 Code : 19519-2 Heart Rate 1 : 103 bpm Height: 6'2" SpO2: 95% Weight: 257 lbs Functional Status No Functional Status data History of Present Illness Symptom Name Status Result Effective Date Notes fatigue Limitation on Activities moderately limits activities 08/27/2017 None fatigue Pertinent Findings Denies dyspnea 08/27/2017 None fatigue Pertinent Findings dysarthria 08/27/2017 None malaise Quality acute 08/27/2017 None malaise Limitation on Activities moderately limits activities 08/27/2017 None hypertension Quality primary hypertension 08/16/2017 None hypertension Onset and Resolution ongoing 08/16/2017 None hypertension Onset of Symptom during adulthood 08/16/2017 None diabetes mellitus Quality insulin dependent 08/16/2017 None diabetes mellitus Alleviating Factors insulin 08/16/2017 None diabetes mellitus Exacerbating Factors diet 08/16/2017 None diabetes mellitus Test results Pt checking blood glucose readings, did not bring results to clinic 08/16/2017 None diabetes mellitus Glucose monitoring occasional glucose testing 08/16/2017 None diabetes mellitus Pertinent Findings Denies dizziness 08/16/2017 None hypertension Alleviating Factors medication 08/16/2017 None hypertension Blood Pressure Values not checking blood pressure at home 08/16/2017 None hypertension Pertinent Findings Denies dyspnea 08/16/2017 None hypertension Pertinent Findings edema 08/16/2017 if he is up on them skin lesion Location chest 08/16/2017 None skin lesion Quality acute 08/16/2017 None rash Location-Major on the abdomen 07/26/2017 None rash Location-Major on the back 07/26/2017 None rash Color red 2016 None rash Onset and Resolution sudden in onset 07/26/2017 None rash Onset of Symptom 4 days ago 07/26/2017 None rash Triggers no known triggers 07/26/2017 None rash Pertinent Findings itching 07/26/2017 None rash Pertinent Findings pain 07/26/2017 None Post-op wound Significant Medical Conditions diabetes 07/03/2017 None Post-op wound Significant Medical Conditions hypertension 07/03/2017 None Post-op wound Pertinent Findings pain 07/03/2017 None Post-op wound Pertinent Findings Denies fever 07/03/2017 None Post-op wound Pertinent Findings redness around the incision site 07/03/2017 None Post-op wound General Recovery poorly 07/03/2017 None laceration of the arm Location on the left 06/29/2017 None laceration of the arm Quality acute 06/29/2017 None laceration of the arm Onset of Symptom 2 days ago 06/29/2017 None laceration of the arm Limitation on Activities does not limit activities 06/29/2017 None laceration of the arm Severity mild 06/29/2017 None laceration of the arm Pertinent Findings Denies fever 06/29/2017 None Post-op wound Procedure Performed _ 06/18/2017 resection of 1st metatarsal head right food on 05/[address] Curran Post-op wound General Recovery poorly 06/18/2017 culture grew enterobactor and pseudomonas, took cipro-not getting better Post-op wound Instructions wet to dry dressings at home with betadine 06/18/2017 None Post-op wound Significant Medical Conditions diabetes 06/18/2017 None Post-op wound Significant Medical Conditions hypertension 06/18/2017 None Post-op wound Additional Comments Patient followed pre/post op instructions 06/18/2017 None Post-op wound Pertinent Findings pain 06/18/2017 None Post-op wound Pertinent Findings Denies fever 06/18/2017 None Post-op wound Pertinent Findings redness around the incision site 06/18/2017 None sore throat Location on both sides 06/07/2017 None sore throat Quality acute 06/07/2017 None sore throat Onset and Resolution ongoing 06/07/2017 None sore throat Onset of Symptom 1 weeks ago 06/07/2017 None sore throat Limitation on Activities does not limit oral intake 06/07/2017 None sore throat Frequency of Episodes unchanged 06/07/2017 None sore throat Triggers swallowing 06/07/2017 None sore throat Pertinent Findings Denies cough 06/07/2017 None sore throat Pertinent Findings decreased energy level 06/07/2017 None sore throat Pertinent Findings Denies facial pain 06/07/2017 None sore throat Pertinent Findings Denies ill contacts 06/07/2017 None sore throat Pertinent Findings Denies unable to swallow 06/07/2017 None hyperglycemia Quality chronic 05/17/2017 None hyperglycemia Onset and Resolution ongoing 05/17/2017 None hyperglycemia Onset of Symptom during adulthood 05/17/2017 None hyperglycemia Severity mild 05/17/2017 None hyperglycemia Frequency of Episodes increasing 05/17/2017 None hyperglycemia Significant Medical Conditions diabetes mellitus 05/17/2017 None hyperglycemia Triggers no known associated factors 05/17/2017 None hyperglycemia Alleviating Factors medication 05/17/2017 None hyperglycemia Exacerbating Factors diet 05/17/2017 None rash Location-Major in a generalized area 05/04/2017 None rash Pertinent Findings history of exposure 05/04/2017 None rash Alleviating Factors no alleviating factors 05/04/2017 None rash Location-Extremities on the right leg 05/04/2017 None rash Quality chronic 05/04/2017 None rash Color erythematous 05/04/2017 None rash Onset and Resolution ongoing 05/04/2017 None rash Onset of Symptom _ days ago 05/04/2017 None rash Limitation on Activities does not limit activities 05/04/2017 None rash Severity worsening 05/04/2017 None rash Prior Treatments unresponsive to treatment 05/04/2017 None rash Triggers outside 05/04/2017 None cough Location in the larynx 03/15/2017 None cough Quality dry 09/2017 None cough Onset and Resolution resolved 03/15/2017 None cough Onset of Symptom 1 months ago 03/15/2017 None cough Limitation on Activities does not limit activities 03/15/2017 None cough Frequency of Episodes decreasing 03/15/2017 None cough Triggers known allergens 03/15/2017 lisinopril cough Location in the throat 03/01/2017 None cough Quality chronic 03/01/2017 None cough Quality dry None cough Onset and Resolution ongoing 03/01/2017 None cough Quality interrupts sleep 03/01/2017 None cough Quality hacking 03/01/2017 None cough Onset of Symptom 1 months ago 03/01/2017 None cough Limitation on Activities moderately limits activities 03/01/2017 None cough Frequency of Episodes daily 03/01/2017 None cough Triggers no known associated factors 03/01/2017 None cough Exacerbating Factors exercise 03/01/2017 None cough Pertinent Findings Denies chest discomfort 03/01/2017 None cough Pertinent Findings Denies apnea 03/01/2017 None cough Pertinent Findings Denies chills 03/01/2017 None cough Pertinent Findings Denies cyanosis 03/01/2017 None cough Pertinent Findings Denies day care 03/01/2017 None cough Pertinent Findings Denies drooling 03/01/2017 None cough Pertinent Findings Denies drug abuse 03/01/2017 None cough Pertinent Findings Denies dry eyes 03/01/2017 None cough Pertinent Findings Denies dysphagia 03/01/2017 None cough Pertinent Findings dyspnea 03/01/2017 None cough Pertinent Findings Denies eczema 03/01/2017 None cough Pertinent Findings Denies facial pain 03/01/2017 None cough Pertinent Findings Denies facial swelling 03/01/2017 None cough Pertinent Findings Denies family history of allergies 03/01/2017 None cough Pertinent Findings Denies family history of asthma 03/01/2017 None cough Pertinent Findings Denies family history of pulmonary disease 03/01/2017 None cough Pertinent Findings Denies fever 03/01/2017 None cough Pertinent Findings Denies frothy pink sputum 03/01/2017 None cough Pertinent Findings Denies grunting 03/01/2017 None cough Pertinent Findings Denies heartburn 03/01/2017 None cough Pertinent Findings Denies hemoptysis 03/01/2017 None cough Pertinent Findings Denies hiccups 03/01/2017 None cough Pertinent Findings Denies hoarseness 03/01/2017 None cough Pertinent Findings Denies ill contacts 03/01/2017 None cough Pertinent Findings Denies lethargy 03/01/2017 None cough Pertinent Findings Denies muscle aches 03/01/2017 None dyspnea Quality breathlessness 02/16/2017 None dyspnea Quality chest tightness 02/16/2017 None dyspnea Quality shortness of breath 02/16/2017 None dyspnea Onset and Resolution sudden in onset 02/16/2017 None dyspnea Pertinent Findings chest discomfort 02/16/2017 None dyspnea Pertinent Findings cough 02/16/2017 None dyspnea Pertinent Findings fever 02/16/2017 None dyspnea Pertinent Findings lethargy 02/16/2017 None dyspnea Pertinent Findings lightheadedness 02/16/2017 None dyspnea Pertinent Findings weakness 02/16/2017 None cough Location in the throat 02/16/2017 None cough Quality acute None cough Onset and Resolution sudden in onset 02/16/2017 None cough Alleviating Factors OTC medications 02/16/2017 mucinex, sharron cough Pertinent Findings chest discomfort 02/16/2017 None cough Pertinent Findings chills 02/16/2017 None cough Pertinent Findings dyspnea 02/16/2017 None cough Pertinent Findings fever 02/16/2017 None cough Pertinent Findings weakness 02/16/2017 None diarrhea Onset and Resolution sudden in onset 02/16/2017 None diarrhea Pertinent Findings chills 02/16/2017 None diarrhea Pertinent Findings cough 02/16/2017 None diarrhea Pertinent Findings fever 02/16/2017 None diarrhea Pertinent Findings dyspnea 02/16/2017 None diarrhea Pertinent Findings lightheadedness 02/16/2017 None diabetes mellitus Quality insulin dependent 02/12/2017 None diabetes mellitus Test results HgbA1c level 11.7 02/12/2017 None diabetes mellitus Blood glucose levels greater than 120 02/12/2017 None diabetes mellitus Glucose monitoring daily 02/12/2017 None diabetes mellitus Significant Medications insulin 02/12/2017 None diabetes mellitus Alleviating Factors medication 02/12/2017 None diabetes mellitus Exacerbating Factors diet 02/12/2017 None diabetes mellitus Nutrition regular diet 02/12/2017 None diabetes mellitus Exercise no exercise 02/12/2017 None diabetes mellitus Onset of Symptom onset as an adult 02/12/2017 None diabetes mellitus Pertinent Findings Denies vomiting 02/12/2017 None diabetes mellitus Pertinent Findings Denies dehydration 02/12/2017 None diabetes mellitus Pertinent Findings dizziness 02/12/2017 improved Hospital Follow Up _ Other: possible stroke 02/05/2017 None Hospital Follow Up Quality acute illness 02/05/2017 None Hospital Follow Up Pertinent Findings other neurologic symptoms 02/05/2017 None dizziness Quality acute 02/05/2017 None dizziness Onset and Resolution ongoing 02/05/2017 None dizziness Onset of Symptom _ weeks ago 02/05/2017 None dizziness Limitation on Activities moderately limits activities 02/05/2017 None dizziness Frequency of Episodes unchanged 02/05/2017 None arm pain Location right arm 01/29/2017 None arm pain Onset of Symptom 1 days ago 01/29/2017 None arm pain Limitation on Activities moderately limits activities 01/29/2017 None arm pain Severity moderate 01/29/2017 None arm pain Extent of Symptoms tingling of right upper extremity 01/29/2017 None arm pain Frequency of Episodes increasing 01/29/2017 None arm pain Significant Medical Conditions diabetes 01/29/2017 None foot pain Location on the right 10/09/2016 None foot pain Quality constant 10/09/2016 None foot pain Quality worsening 10/09/2016 None foot pain Onset and Resolution ongoing 10/09/2016 None foot pain Onset of Symptom 1 days ago 10/09/2016 None foot pain Frequency of Episodes increasing 10/09/2016 None foot pain Limitation on Activities allows weight bearing activity 10/09/2016 None foot pain Severity moderate 10/09/2016 None foot pain Significant Medical Conditions diabetes mellitus 10/09/2016 None foot pain Pertinent Findings decreased range of motion 10/09/2016 None foot pain Pertinent Findings limping 10/09/2016 None foot pain Pertinent Findings pain with movement 10/09/2016 None foot pain Pertinent Findings redness 10/09/2016 None foot pain Location on the right 10/06/2016 None foot pain Quality worsening 10/06/2016 None foot pain Quality constant 10/06/2016 None foot pain Onset of Symptom 1 days ago 10/06/2016 None foot pain Pertinent Findings decreased range of motion 10/06/2016 None foot pain Pertinent Findings limping 10/06/2016 None foot pain Pertinent Findings pain with movement 10/06/2016 None foot pain Pertinent Findings redness 10/06/2016 None foot pain Onset and Resolution ongoing 10/06/2016 None foot pain Frequency of Episodes increasing 10/06/2016 None foot pain Limitation on Activities allows weight bearing activity 10/06/2016 None foot pain Severity moderate 10/06/2016 None foot pain Significant Medical Conditions diabetes mellitus 10/06/2016 None back pain Location lumbar spine 07/18/2016 None back pain Onset of Symptom 1 days ago 07/18/2016 None back pain Pertinent Findings morning stiffness 07/18/2016 None back pain Pertinent Findings Denies sleep disturbance 07/18/2016 None back pain Location in the midline of in the lower back area 07/18/2016 None back pain Quality acute 07/18/2016 None back pain Onset and Resolution ongoing 07/18/2016 None back pain Limitation on Activities does not limit activities 07/18/2016 None back pain Frequency of Episodes increasing 07/18/2016 None back pain Triggers activity 07/18/2016 None back pain Alleviating Factors rest 07/18/2016 None back pain Radiating does not radiate 07/18/2016 None diabetes mellitus Severity moderate 06/22/2016 None diabetes mellitus Exacerbating Factors diet 06/22/2016 None diabetes mellitus Pertinent Findings Denies dizziness 06/22/2016 None diabetes mellitus Pertinent Findings Denies dyspnea 06/22/2016 None diabetes mellitus Test results Pt checking blood glucose readings, did not bring results to clinic 06/22/2016 None diabetes mellitus Blood glucose levels greater than 120 06/22/2016 None diabetes mellitus Glucose monitoring occasional glucose testing 06/22/2016 None diabetes mellitus Test results HgbA1c level 12.4 06/22/2016 None diabetes mellitus Quality insulin dependent 06/22/2016 None diabetes mellitus Significant Medications insulin 06/22/2016 None diabetes mellitus Alleviating Factors medication 06/22/2016 None diabetes mellitus Nutrition regular diet 06/22/2016 None diabetes mellitus Quality NIDDM 05/23/2016 None diabetes mellitus Glucose monitoring occasional glucose testing 05/23/2016 None diabetes mellitus Pertinent Findings Denies dizziness 05/23/2016 None diabetes mellitus Pertinent Findings Denies dyspnea 05/23/2016 None diabetes mellitus Severity moderate 05/23/2016 None diabetes mellitus Test results HgbA1c level 12.4 05/23/2016 None diabetes mellitus Blood glucose levels does not test 05/23/2016 None diabetes mellitus Exacerbating Factors diet 05/23/2016 None diabetes mellitus Exercise no exercise 05/23/2016 None fatigue Limitation on Activities moderately limits activities 05/15/2016 None fatigue Onset of Symptom 2 days ago 05/15/2016 None fatigue Frequency of Episodes daily 05/15/2016 None fatigue Pertinent Findings dizziness 05/15/2016 None fatigue Pertinent Findings lightheadedness 05/15/2016 None fatigue Onset and Resolution sudden in onset 05/15/2016 None anxiety Quality agitation 01/20/2016 None anxiety Onset and Resolution ongoing 01/20/2016 None rash Location-Extremities on the right arm 01/20/2016 None rash Quality new 01/19 None rash Color red 2015 None rash Onset and Resolution sudden in onset 01/20/2016 None rash Onset of Symptom 1 days ago 01/20/2016 None rash Alleviating Factors no alleviating factors 01/20/2016 None rash Pertinent Findings itching 01/20/2016 None Advance Directives No Advance Directive data Encounters Encounter Performer Location Codes Date EST. PATIENT, LEVEL III Diagnosis: Other malaise[ICD10: R53.81] Diagnosis: Other fatigue[ICD10: R53.83] Diagnosis: Pain in right shoulder[ICD10: M25.511] Diagnosis: Pain in left shoulder[ICD10: M25.512] Madeline Ha MD, [facility] CPT-4: 98545 08/27/2017 ([id number]) 77931 EST. PATIENT, LEVEL IV Diagnosis: Essential (primary) hypertension[ICD10: I10] Diagnosis: Type 2 diabetes mellitus with hyperglycemia[ICD10: E11.65] Diagnosis: VACCIN FOR INFLUENZA[ICD10: Z23] Melida Ha MD, [facility] CPT-4: 85318 08/16/2017 82374 EST. PATIENT, LEVEL III Diagnosis: Zoster without complications[ICD10: B02.9] Madeline Ha MD, [facility] CPT-4: 87301 07/26/2017 ([id number]) 54709 EST. PATIENT, LEVEL III Diagnosis: Cellulitis of right lower limb[ICD10: L03.115] Marcela Ha MD, [facility] CPT-4: 15163 07/03/2017 07752 EST. PATIENT, LEVEL II Diagnosis: Laceration without foreign body of left forearm, initial encounter[ ICD10: S51.812A] Marcela Ha MD, [facility] CPT-4: 85567 06/29/2017 ([id number]) 71843 EST. PATIENT, LEVEL III Diagnosis: Cellulitis of right lower limb[ICD10: L03.115] Diagnosis: Type 2 diabetes mellitus with foot ulcer[ICD10: E11.621] Marcela Ha MD , [facility] CPT-4: 13333 06/18/2017 ([id number]) 89638 EST. PATIENT, LEVEL IV Diagnosis: Cellulitis of right lower limb[ICD10: L03.115] Diagnosis: Acute laryngopharyngitis[ICD10: J06.0] Diagnosis: Gastro-esophageal reflux disease without esophagitis[ICD10: K21.9] Marcela Ha MD, [facility] CPT-4: 43404 06/07/2017 ([id number]) 09217 EST. PATIENT, LEVEL III Diagnosis: Type 2 diabetes mellitus with hyperglycemia[ICD10: E11.65] Diagnosis: Insect bite (nonvenomous) of abdominal wall, initial encounter[ICD10 : S30.861A] Marcela Ha MD, [facility] CPT-4: 56142 05/17/2017 ([id number]) 69845 EST. PATIENT, LEVEL III Diagnosis: Allergic contact dermatitis due to plants, except food[ICD10: L23.7] Melida Ha MD, [facility] CPT-4: 01278 05/04/2017 ([id number]) 93273 EST. PATIENT, LEVEL III Diagnosis: Essential (primary) hypertension[ICD10: I10] Marcela Ha MD, [facility] CPT-4: 27926 03/15/2017 ([id number]) 94525 EST. PATIENT, LEVEL III Diagnosis: Cough[ICD10: R05] Diagnosis: Essential (primary) hypertension[ICD10: I10] Marcela Ha MD, [facility] CPT-4: 23769 03/01/2017 ([id number]) 90142 EST. PATIENT, LEVEL III Diagnosis: Cough[ICD10: R05] Diagnosis: Nasal congestion[ICD10: R09.81] Diagnosis: Acute recurrent maxillary sinusitis[ICD10: J01.01] Marcela Ha MD [facility] CPT-4: 78398 02/16/2017 ([id number]) 87199 EST. PATIENT, LEVEL III Diagnosis: Type 2 diabetes mellitus with hyperglycemia[ICD10: E11.65] Marcela Ha MD [facility] CPT-4: 93657 02/12/2017 ([id number]) 79806 EST. PATIENT, LEVEL IV Diagnosis: Type 2 diabetes mellitus with hyperglycemia[ICD10: E11.65] Diagnosis: Muscle weakness (generalized)[ICD10: M62.81] Diagnosis: Disorientation, unspecified[ICD10: R41.0] Marcela Ha MD [facility] CPT-4: 58167 02/05/2017 ([id number]) Patient admitted to the hospital from clinic (NO CHARGE) Diagnosis: Type 2 diabetes mellitus with hyperglycemia[ICD10: E11.65] Diagnosis: Disorientation, unspecified[ICD10: R41.0] Diagnosis: Muscle weakness (generalized)[ICD10: M62.81] Marcela Ha MD [facility] CPT-4: 16362K 01/29/2017 ([id number]) Miscellaneous no charge Diagnosis: Cellulitis of right lower limb[ICD10: L03.115] Marcela Ha MD [facility] CPT-4: 28475 10/13/2016 ([id number]) Miscellaneous no charge Diagnosis: Type 2 diabetes mellitus with foot ulcer[ICD10: E11.621] Diagnosis: Pain in right foot[ICD10: M79.671] Marcela Ha MD [facility] CPT-4: 58906 10/09/2016 09252 EST. PATIENT, LEVEL II Diagnosis: Cellulitis of right lower limb[ICD10: L03.115] Marcela Ha MD [facility] CPT-4: 51040 10/06/2016 ([id number]) 14461 EST. PATIENT, LEVEL IV Diagnosis: Low back pain[ICD10: M54.5] Diagnosis: Other deformities of toe(s) (acquired), left foot[ICD10: M20.5X2] Diagnosis: Type 2 diabetes mellitus with foot ulcer[ICD10: E11.621] Marcela Ha MD [facility] CPT-4: 58826 07/18/2016 ([id number]) 00214 EST. PATIENT, LEVEL III Diagnosis: Type 2 diabetes mellitus with hyperglycemia[ICD10: E11.65] Marcela Ha MD, [facility] CPT-4: 36563 06/22/2016 ([id number]) 22011 EST. PATIENT, LEVEL IV Diagnosis: Type 2 diabetes mellitus with hyperglycemia[ICD10: E11.65] Diagnosis: Mixed hyperlipidemia[ICD10: E78.2] Diagnosis: Other hemoglobinopathies[ICD10: D58.2] Marcela Ha MD, [facility] CPT-4: 84096 05/23/2016 ([id number]) 95912 EST. PATIENT, LEVEL IV Diagnosis: Type 2 diabetes mellitus with other specified complication[ICD10: E11.69] Diagnosis: Dehydration[ICD10: E86.0] Marcela Ha MD, [facility] [facility] CPT-4: 62620 05/15/2016 (18111) OFFICE VISIT, NEW - LEVEL 3 Diagnosis: Allergic contact dermatitis due to plants, except food[ICD10: L23.7] Madeline Ha MD, [facility] CPT-4: 86152 01/20/2016 Plan of Care Planned Activity Notes Codes Status Date Appointment: Madeline Kennedy [facility]el: [facility] (15 min) Moderate 08/27/2017 Patient Education: Patient Medication Summary Completed 08/27/2017 Appointment: Melida Ha WPtel: [facility] [place] [place] (30 min) Complex 08/16/2017 Patient Education: Patient Medication Summary Completed 08/16/2017 Patient Education: Obesity Completed 08/16/2017 Appointment: Mad[facility] Kennedy [facility]el: [phone] [facility] [place] (30 min) Complex 08/07/2017 Appointment: Madeline Kennedy WPtel: [facility] [place] (15 min) Moderate 07/26/2017 Patient Education: Patient Medication Summary Completed 07/26/2017 Appointment: Marcela Oshea [facility]Ptel[facility] [phone] [phone] [place] (30 min) Complex 07/03/2017 Patient Education: Patient Medication Summary Completed 07/03/2017 Appointment: Marcela Oshea [facility]Ptel[facility] [phone] [facility] [place] (15 min) Moderate 06/29/2017 Patient Education: Patient Medication Summary Completed 06/29/2017 Appointment: Lab Draw 06/21/2017 Patient Education: Patient Medication Summary Completed 06/21/2017 Appointment: Marcela Oshea WPtel: [facility] [place] (15 min) Moderate 06/18/2017 Patient Education: Patient Medication Summary Completed 06/18/2017 Appointment: Marcela Oshea WPtel: [phone] [place] (10 min) Simple 06/07/2017 Patient Education: Patient Medication Summary Completed 06/07/2017 Appointment: Marcela Oshea WPtel: [facility] [place] (30 min) Complex 05/17/2017 Patient Education: Patient Medication Summary Completed 05/17/2017 Patient Education: Obesity Completed 05/17/2017 Appointment: Marcela Oshea WPtel: [phone] [place] (30 min) Complex 05/04/2017 Patient Education: Patient Medication Summary Completed 05/04/2017 Appointment: Marcela Oshea WPtel: [phone] [place] (15 min) Moderate 03/15/2017 Patient Education: Patient Medication Summary Completed 03/15/2017 Appointment: Marcela Oshea WPtel: [phone] [place] (30 min) Complex 03/12/2017 Patient Education: Patient Medication Summary Completed 03/01/2017 Appointment: Marcela Oshea WPtel: [address] [place] [id number] [place] (15 min) Moderate 02/16/2017 Patient Education: Patient Medication Summary Completed 02/16/2017 Appointment: Marclea Oshea [facility]Ptel: [phone] [phone] [place] (30 min) Complex 02/12/2017 Patient Education: Patient Medication Summary Completed 02/12/2017 Appointment: Marcela Oshea WPtel: [phone] [phone] [place] (30 min) Complex 02/06/2017 Appointment: Marcela Oshea WPtel: [phone] [facility] [place] (30 min) Complex 02/05/2017 Patient Education: Patient Medication Summary Completed 02/05/2017 Appointment: Marcela Oshea WPtel: [phone] [phone] [place] (30 min) Complex 01/30/2017 Appointment: Marcela Oshea [facility]Ptel: [phone] [facility] [place] (30 min) Complex 01/29/2017 Patient Education: Patient Medication Summary Completed 01/29/2017 Patient Education: Obesity Completed 01/29/2017 Appointment: Marcela Oshea [facility]Ptel: [phone] [phone] [place] (15 min) Moderate 10/13/2016 Patient Education: Patient Medication Summary Completed 10/13/2016 Appointment: Marcela Oshea [facility]Ptel: [phone] [phone] [place] (30 min) Complex 10/12/2016 Appointment: Marcela Oshea [facility]Ptel: [phone] [phone] [place] (30 min) Complex 10/09/2016 Patient Education: Patient Medication Summary Completed 10/09/2016 Appointment: Marcela Oshea WPtel: [phone] [phone] [place] (10 min) Simple 10/06/2016 Patient Education: Patient Medication Summary Completed 10/06/2016 Appointment: Marcela Oshea WPtel: [phone] [phone] [place] (30 min) Complex 08/24/2016 Referral: Sun Glynn Referral Completed 07/21/2016 Appointment: Marcela Oshea WPtel: [phone] [phone] [place] (30 min) Complex 07/18/2016 Patient Education: Patient Medication Summary Completed 07/18/2016 Patient Education: Obesity Completed 07/18/2016 Care Plan: Referral Order SNOMED-CT : [id number] Pending 07/18/2016 Appointment: Marcela Oshea [facility]Ptel: [phone] [facility] [place] (30 min) Complex 06/22/2016 Patient Education: Patient Medication Summary Completed 06/22/2016 Patient Education: Obesity Completed 06/22/2016 Appointment: Marcela Oshea WPtel: [phone] [place] (30 min) Complex 05/23/2016 Patient Education: Patient Medication Summary Completed 05/23/2016 Patient Education: Obesity Completed 05/23/2016 Patient Education: Patient Medication Summary Completed 05/17/2016 Patient Education: Patient Medication Summary Completed 05/17/2016 Care Plan: Cbc With Differential Pending 05/17/2016 Appointment: Marcela Oshea [facility]Ptel: [phone] [phone] [place] (15 min) Moderate 05/15/2016 Patient Education: Patient Medication Summary Completed 05/15/2016 Patient Education: Obesity Completed 05/15/2016 Patient Education: Patient Medication Summary Completed 01/20/2016 Patient Education: Obesity Completed 01/20/2016 Referral: Sun Glynn Referral Initiated Instructions No Instructions
[2018-05-28] MEDS ORDERED: CEFEPIME INJECTION 2,000 MG in NS (IVPB) 50 ML IV SCH (12:19)
--- OUTSIDE RECORDS SUMMARY | 2018-05-28 12:20 | XMS REPORT | CCD ---
Author Author Madeline Kennedy MD, [facility] Address [address] [place] [address] Phone Care Team Providers Care Grain Origination Specialist Name Role Phone PP Unavailable CCM Unavailable Summary Purpose Interface Exchange Insurance Providers Payer name Policy type / Coverage type Covered republican ID Effective Begin Date Effective End Date Blue Cross Blue Shield [facility] Blue Cross/Blue Shield [id number] Unknown Family history Father Diagnosis Age At Onset Hyperlipidemia Unknown Heart Attack Unknown Mother Diagnosis Age At Onset Hypertension Unknown Social History Social History Element Codes Description Effective Dates Marital status Unknown Mignon 01/20/2016 Number of children Unknown 4 01/20/2016 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/[address]: 539388593 Never smoker 01/20/[address]: 925758761 Never drinks alcohol 01/20/2016 Allergies, Adverse Reactions, [...] Start Date Stop Date Status Fill Instructions clonazepam 1 mg tablet RxNorm: 795186 1 Tablet(s) PO Q8 as needed 12/12/2017 03/11/2018 Active Tamiflu 75 mg capsule RxNorm: 028590 1 Capsule(s) PO BID 201712/03/2017 Inactive doxycycline hyclate 100 mg capsule RxNorm: 9418052 1 Capsule(s) PO BID 09/07/2017 09/20/2017 Inactive doxycycline hyclate 100 mg capsule RxNorm: 5770084 1 Capsule(s) PO BID 08/27/2017 09/06/2017 Inactive prednisone 20 mg tablet RxNorm: 934704 2 Tablet(s) PO daily 08/31/2017 Inactive clopidogrel 75 mg tablet RxNorm: 706891 1 Tablet(s) PO daily 02/19/2018 Active atorvastatin 40 mg tablet RxNorm: 571232 1 Tablet(s) PO QHS 02/19/2018 Active losartan 25 mg tablet RxNorm: 402736 TAKE ONE TABLET BY MOUTH DAILY 08/22/2017 02/17/2018 Active Toujeo SoloStar 300 unit/mL (1.5 mL) subcutaneous insulin pen RxNorm: 5922544 45 Unit(s) daily 08/17/2017 08/20/2017 Inactive mupirocin 2 % topical ointment RxNorm: 556581 1 Application TOP TID to the lesions on chest 08/16/2017 08/25/2017 Inactive Toujeo SoloStar 300 unit/mL (1.5 mL) subcutaneous insulin pen RxNorm: 9225633 40 Unit(s) daily 08/16/2017 08/16/2017 Inactive valacyclovir 1 gram tablet RxNorm: 894226 1 Tablet(s) PO TID 08/01/2017 Inactive clonazepam 1 mg tablet RxNorm: 332246 1 Tablet(s) PO Q8 as needed 07/03/2017 09/30/2017 Inactive Levaquin 500 mg tablet RxNorm: 838209 1 Tablet(s) PO daily 06/25/2017 Inactive Levaquin 500 mg tablet RxNorm: 444234 1 Tablet(s) PO daily 06/21/2017 Inactive losartan 25 mg tablet RxNorm: 784539 1 Tablet(s) PO daily 201608/16/2017 Inactive nystatin 100,000 unit/mL oral suspension RxNorm: 399102 5 Milliliter(s) PO QID Swish et swallow 06/18/2017 06/17/2017 Inactive nystatin 100,000 unit/mL oral suspension RxNorm: 783016 5 Milliliter(s) PO QID Swish et swallow 06/18/2017 06/27/2017 Inactive Cipro 500 mg tablet RxNorm: 034932 1 Tablet(s) PO BID 201606/18/2017 Inactive Cipro 500 mg tablet RxNorm: 711858 1 Tablet(s) PO BID 201606/11/2017 Inactive Toujeo SoloStar 300 unit/mL (1.5 mL) subcutaneous insulin pen RxNorm: 3056915 INJECT 10 UNITS UNDER THE SKIN DAILY 06/12/2017 08/15/2017 Inactive Keflex 500 mg capsule RxNorm: 176137 1 Capsule(s) PO TID 201606/13/2017 Inactive doxycycline hyclate 100 mg capsule RxNorm: 5929857 1 Capsule(s) PO BID 05/17/2017 05/21/2017 Inactive doxycycline hyclate 100 mg capsule RxNorm: 2094515 1 Capsule(s) PO BID 05/11/2017 05/16/2017 Inactive losartan 25 mg tablet RxNorm: 876227 1 Tablet(s) PO daily 201606/17/2017 Inactive atorvastatin 40 mg tablet RxNorm: 795349 1 Tablet(s) PO daily 03/01/2017 08/23/2017 Inactive clopidogrel 75 mg tablet RxNorm: 672521 1 Tablet(s) PO daily 08/23/2017 Inactive Flonase Allergy Relief 50 mcg/actuation nasal spray, suspension RxNorm: 1367545 2 [place] NASAL daily 02/16/20172016 Inactive Augmentin 875 mg-125 mg tablet RxNorm: 428686 1 Tablet(s) PO BID 02/16/2017 02/22/2017 Inactive GET PROBIOTIC TO TAKE WHILE ON ABX Tamiflu 75 mg capsule RxNorm: 072754 1 Capsule(s) PO BID 201602/20/2017 Inactive ceftriaxone 500 mg solution for injection RxNorm: 8340780 1 Milliliter(s) Inj 02/16/2017 02/16/2017 Inactive Kenalog 40 mg/mL suspension for injection RxNorm: 3760830 1 Milliliter(s) Inj 02/16/2017 02/16/2017 Inactive Toujeo SoloStar 300 unit/mL (1.5 mL) subcutaneous insulin pen RxNorm: 7571111 25 Unit(s) SQ QAM 02/12/2017 06/10/2017 Inactive Toujeo SoloStar 300 unit/mL (1.5 mL) subcutaneous insulin pen RxNorm: 5757298 10 Unit(s) SQ QAM 02/05/2017 02/11/2017 Inactive lisinopril 10 mg tablet RxNorm: 994158 1 Tablet(s) PO daily 02/28/2017 Inactive atorvastatin 40 mg tablet RxNorm: 440876 1 Tablet(s) PO daily 02/01/2017 02/28/2017 Inactive doxycycline hyclate 100 mg capsule RxNorm: 0078758 1 Capsule(s) PO BID 02/01/2017 02/10/2017 Inactive clonazepam 1 mg tablet RxNorm: 123170 1 Tablet(s) PO Q8 as needed 10/09/2016 01/05/2017 Inactive ceftriaxone 1 gram solution for injection RxNorm: 8458497 Inj 10/06/2016 10/06/2016 Inactive cyclobenzaprine 10 mg tablet RxNorm: 683980 1/2-1 Tablet(s) PO TID PRN 07/18/2016 01/28/2017 Inactive clonazepam 1 mg tablet RxNorm: 662217 1 Tablet(s) PO Q8 as needed 05/31/2016 05/29/2016 Inactive clonazepam 1 mg tablet RxNorm: 024906 1 Tablet(s) PO Q8 as needed 05/31/2016 08/28/2016 Inactive Toujeo SoloStar 300 unit/mL (1.5 mL) subcutaneous insulin pen RxNorm: 0725720 10 Unit(s) SQ daily 05/23/2016 01/28/2017 Inactive Crestor 10 mg tablet RxNorm: 796753 1 Tablet(s) PO QHS 201501/28/2017 Inactive Crestor 10 mg tablet RxNorm: 016197 1 Tablet(s) PO QHS 201505/18/2016 Inactive clonazepam 1 mg tablet RxNorm: 887568 1 Tablet(s) PO Q8 as needed 04/25/2016 05/30/2016 Inactive prednisone 20 mg tablet RxNorm: 445708 3 Tablet(s) PO daily 06/201602/10/2016 Inactive prednisone 20 mg tablet RxNorm: 939597 3 Tablet(s) PO daily 06/201605/14/2016 Inactive Kenalog 40 mg/mL suspension for injection RxNorm: 5359961 Milliliter(s) Inj 01/20/2016 01/20/2016 Inactive acetaminophen 500 mg tablet RxNorm: 583123 1-2 Tablet(s) PO as needed No Start Date Active clopidogrel 75 mg tablet RxNorm: 011245 1 Tablet(s) PO daily No Start Date 02/28/2017 Inactive clonazepam 1 mg tablet RxNorm: 395514 1 Tablet(s) PO QHS No Start Date 04/24/2016 Inactive acyclovir 400 mg tablet RxNorm: 342456 2 Tablet(s) PO 5x daily No Start Date 02/28/2017 Inactive Medication Administered Medication Codes Instructions Start Date Status ceftriaxone 500 mg solution for injection RxNorm: 4702001 1Milliliter 02/16/2017 No longer Active Kenalog 40 mg/mL suspension for injection RxNorm: 0785312 1Milliliter 02/16/2017 No longer Active ceftriaxone 1 gram solution for injection RxNorm: 1240289 10/06/2016 No longer Active Kenalog 40 mg/mL suspension for injection RxNorm: 9670665 Milliliter 01/20/2016 No longer Active Immunizations Vaccine [...] Observation Code Item Item Code Result Date [place] Spotted Fever Igg/Igm 630900 FEI MT SPOTTED FEVER IGM EIA . 09/05/2017 [place] Spotted Fever Igg/Igm 304464 RMSF, IGM 0.17 index 09/05/2017 [place] Spotted Fever Igg/Igm 275654 FEI MT SPOTTED FEVER IGG EIA FLEX . 09/05/2017 [place] Spotted Fever Igg/Igm 082433 RMSF, IGG SCREEN-FLEX Positive 09/05/2017 Fei Mtn Spot'D Fev Igg 516423 RMSF, IGG -TITER IFA <1:64 11/2016 Ehrlichia Chaffeensis Antibody Igm 420206 EHRLICHIA CHAFFEENSIS IGM < 1:16 09/03/2017 Ehrlichia Chaffeensis Antibody Igg 033762 EHRLICHIA CHAFFEENSIS IGG <1:64 09/03/2017 Lymes Disease Total Antibodies With Western Blot Reflex B. BURGDORFERI, IGG/IGM 0.223 08/30/2017 Lymes Disease Total Antibodies With Western Blot Reflex C-Reactive Protein Qnt Crqnt CRP 0.00 mg/dl 08/27/2017 Sed Rate Ord21 ESR 8 mm/hr 08/27/2017 Comp Metabolic Zow701 NA 135 mEq/L 08/16/2017 Comp Metabolic Sag854 K 4.1 mEq/L 08/16/2017 Comp Metabolic Vqz626 CL 98 mEq/L 08/16/2017 Comp Metabolic Evc465 CO2 28.0 mEq/L 08/16/2017 Comp Metabolic Yiy877 ANION GAP 13 08/16/2017 Comp Metabolic Lbj995 GLUCOSE 299 mg/dL 08/16/2017 Comp Metabolic Zhu184 Creat 0.9 mg/dL 08/16/2017 Comp Metabolic Oht913 eGFR 90 ml/min/1.73m2 08/16/2017 Comp Metabolic Yma584 BUN 20 mg/dL 08/16/2017 Comp Metabolic Aww875 B/C Ratio 21.5 Ratio 08/16/2017 Comp Metabolic Wqu400 CALCIUM 9.2 mg/dL 08/16/2017 Comp Metabolic Xjw427 ALK PHOS 84 U/L 08/16/2017 Comp Metabolic Ppw826 AST(SGOT) 19 U/L 08/16/2017 Comp Metabolic Inu155 ALT(SGPT) 24 U/L 08/16/2017 Comp Metabolic Jnf425 BILI T 1.1 mg/dL 08/16/2017 Comp Metabolic Zcp596 ALBUMIN 4.2 g/dL 08/16/2017 Comp Metabolic Nzv129 TPRO 7.2 g/dL 08/16/2017 Comp Metabolic Aue072 GLOB 3.0 g/dL 08/16/2017 Comp Metabolic Jcv900 A/G Ratio 1.4 Ratio 08/16/2017 Comp Metabolic Xvl689 Osmo 284 mOsmo 08/16/2017 %Hba1C Jam086 % HbA1c 76060-6 12.5 % 08/16/2017 %Hba1C Xzl514 Gluc Ave 312 mg/dL 08/16/2017 Urine Culture Ucult Complete NO Growth Day 2 06/23/2017 Urine Culture Ucult Preliminary NO Growth Day 1 06/23/2017 C RAP A SC [id number] Strep A Negative 06/08/2017 %Hba1C Hex912 % HbA1c 43540-6 9.5 % 05/04/2017 %Hba1C Bkq580 Gluc Ave 226 mg/dL 05/04/2017 Tsh Ord6 [...] 89.9 fl 05/04/2017 Cbc With Differential Ord2 [place]% 8.5 % 05/04/2017 Cbc With Differential Ord2 [...] 2.48 K/ul 05/04/2017 Cbc With Differential Ord2 [place] ABS# 0.5 K/ul 05/04/2017 Cbc With Differential Ord2 Eos ABS# 0.1 K/ul 05/04/2017 Cbc With Differential Ord2 Baso ABS# 0.0 K/ul 05/04/2017 Comp Metabolic Bpv957 NA 135 mEq/L 05/04/2017 Comp Metabolic Rep444 K 4.2 mEq/L 05/04/2017 Comp Metabolic Oen999 CL 99 mEq/L 05/04/2017 Comp Metabolic Zua386 CO2 26.0 mEq/L 05/04/2017 Comp Metabolic Skg687 ANION GAP 14 05/04/2017 Comp Metabolic Eqw884 GLUCOSE 277 mg/dL 05/04/2017 Comp Metabolic Grd011 Creat 0.9 mg/dL 05/04/2017 Comp Metabolic Xty672 eGFR 96 ml/min/1.73m2 05/04/2017 Comp Metabolic Phs511 BUN 23 mg/dL 05/04/2017 Comp Metabolic Rxw667 B/C Ratio 26.1 Ratio 05/04/2017 Comp Metabolic Ffk890 CALCIUM 8.9 mg/dL 05/04/2017 Comp Metabolic Dzz871 ALK PHOS 81 U/L 05/04/2017 Comp Metabolic Jql220 AST(SGOT) 21 U/L 05/04/2017 Comp Metabolic Phg913 ALT(SGPT) 27 U/L 05/04/2017 Comp Metabolic Zcs477 BILI T 1.2 mg/dL 05/04/2017 Comp Metabolic Kvp616 ALBUMIN 4.0 g/dL 05/04/2017 Comp Metabolic Jwr105 TPRO 6.7 g/dL 05/04/2017 Comp Metabolic Djh183 GLOB 2.7 g/dL 05/04/2017 Comp Metabolic Hmt034 A/G Ratio 1.5 Ratio 05/04/2017 Comp Metabolic Jdc790 Osmo 284 mOsmo 05/04/2017 C A/B FLU 1556288 Influenza A Scr Negative 02/16/2017 C A/B FLU 8744160 Influenza B Scr Positive 02/16/2017 Cbc With [...] 39.7 % 05/23/2016 Cbc With Differential Ord2 [place]% 8.8 % 05/23/2016 Cbc With Differential Ord2 [...] 2.07 K/ul 05/23/2016 Cbc With Differential Ord2 [place] ABS# 0.5 K/ul 05/23/2016 Cbc With Differential Ord2 Eos ABS# 0.1 K/ul 05/23/2016 Cbc With Differential Ord2 Baso ABS# 0.0 K/ul 05/23/2016 Lipid Ord30 CHOL 397 mg/dL 05/17/2016 Lipid Ord30 HDL 48.0 mg/dl 05/17/2016 Lipid Ord30 TRIG 578 mg/dL 05/17/2016 Lipid Ord30 LDL Unable to calculate Due to elevated triglycerides mg/dL 05/17/2016 Lipid Ord30 C/HDL 8.3 Ratio 05/17/2016 %Hba1C Kef885 % HbA1c 36588-0 12.4 % 05/16/2016 %Hba1C Lst684 Gluc Ave 309 mg/dL 05/16/2016 Cbc With [...] 87.4 fl 05/15/2016 Cbc With Differential Ord2 [place]% 7.8 % 05/15/2016 Cbc With Differential Ord2 [...] 2.04 K/ul 05/15/2016 Cbc With Differential Ord2 [place] ABS# 0.5 K/ul 05/15/2016 Cbc With Differential Ord2 Eos ABS# 0.1 K/ul 05/15/2016 Cbc With Differential Ord2 Baso ABS# 0.0 K/ul 05/15/2016 Tsh Ord6 hTSH II 1.70 uIU/mL 05/15/2016 Comp Metabolic Plj820 NA 135 mEq/L 05/15/2016 Comp Metabolic Znm995 K 3.9 mEq/L 05/15/2016 Comp Metabolic Ffk888 CL 96 mEq/L 05/15/2016 Comp Metabolic Ool395 CO2 27.0 mEq/L 05/15/2016 Comp Metabolic Jyk728 ANION GAP 16 05/15/2016 Comp Metabolic Seh090 GLUCOSE 183 mg/dL 05/15/2016 Comp Metabolic Iwa373 Creat 1.1 mg/dL 05/15/2016 Comp Metabolic Byd056 eGFR 71 ml/min/1.73m2 05/15/2016 Comp Metabolic Jno656 BUN 17 mg/dL 05/15/2016 Comp Metabolic Kpk644 B/C Ratio 14.9 Ratio 05/15/2016 Comp Metabolic Chp102 CALCIUM 9.6 mg/dL 05/15/2016 Comp Metabolic Skl460 ALK PHOS 100 U/L 05/15/2016 Comp Metabolic Quw964 AST(SGOT) 20 U/L 05/15/2016 Comp Metabolic Epf269 ALT(SGPT) 20 U/L 05/15/2016 Comp Metabolic Vkp300 BILI T 1.3 mg/dL 05/15/2016 Comp Metabolic Aul263 ALBUMIN 4.6 g/dL 05/15/2016 Comp Metabolic Qng693 TPRO 8.1 g/dL 05/15/2016 Comp Metabolic Lsy313 GLOB 3.5 g/dL 05/15/2016 Comp Metabolic Zer033 A/G Ratio 1.3 Ratio 05/15/2016 Comp Metabolic Imo918 Osmo 276 mOsmo 05/15/2016 Review of Systems [...] of skin Location: face 05/04/2017 patch left congregational Full Exam - General 1994 Constitutional general [...] NO PRSV 4 MENA 3 YRS+ CPT-4: 01881 08/16/2017 IMMUNIZATION ADMIN CPT -4: 66957 08/16/2017 URINALYSIS NONAUTO W/O SCOPE CPT-4: 40974 06/21/2017 TRIAMCINOLONE ACET INJ NOS CPT-4: J3301 05/04/2017 THER/PROPH/DIAG INJ SC/IM CPT-4: 50903 05/04/2017 TRIAMCINOLONE ACET INJ NOS CPT-4: J3301 02/16/2017 ROCEPHIN, PER 250 MG CPT-4: J0696 02/16/2017 ROCEPHIN, PER 250 MG CPT-4: J0696 10/06/2016 URINALYSIS NONAUTO W/O SCOPE CPT-4: 51683 07/18/2016 TRIAMCINOLONE ACET INJ NOS CPT-4: J3301 01/20/2016 Vital Signs Date Vital 08/27/2017 Blood Pressure 1: 134/76 Code : 8480-6 Heart Rate 1: 98 bpm Height: SpO2: 97% Weight: 08/16/2017 Blood Pressure 1: 128/80 Code : 8480-6 BMI: 32.0 Code : 08993-4 Heart Rate 1 : 94 bpm Height: [...] Code : 8480-6 BMI: 31.8 Code : 21063-2 Heart Rate 1 : 102 bpm Height: [...] Code : 8480-6 BMI: 31.8 Code : 09689-5 Heart Rate 1 : 85 bpm Height: 6'2" SpO2: 96% Temperature: 36.6 (C) / 97.9 (F) Weight: 248 lbs 02/12/2017 Blood Pressure 1: 126/76 Code : 8480-6 BMI: 31.8 Code : 23058-0 Heart Rate 1 : 106 bpm Height: 6'2" SpO2: 91% Weight: 248 lbs 02/05/2017 Blood Pressure 1: 146/86 Code : 8480-6 BMI: 31.9 Code : 53400-4 Heart Rate 1 : 98 bpm Height: 6'2" SpO2: 87% Temperature: 36.7 (C) / 98.0 (F) Weight: 248 lbs 8 oz 01/29/2017 Blood Pressure 1: 132/84 Code : 8480-6 BMI: 31.8 Code : 39116-9 Heart Rate 1 : 83 bpm Height: 6'2" SpO2: 97% Weight: 248 lbs 10/13/2016 Blood Pressure 1: 128/72 Code : 8480-6 Heart Rate 1: 86 bpm SpO2: 94% 10/09/2016 Blood Pressure 1: 128/68 Code : 8480-6 Heart Rate 1: 136 bpm SpO2: 94% Temperature: 36.8 (C) / 98.2 (F) 10/06/2016 Blood Pressure 1: 140/80 Code : 8480-6 BMI: 32.1 Code : 17534-1 Heart Rate 1 : 94 bpm Height: 6'2" SpO2: 95% Weight: 250 lbs 07/18/2016 Blood Pressure 1: 128/86 Code : 8480-6 BMI: 32.1 Code : 48383-7 Heart Rate 1 : 89 bpm Height: 6'2" SpO2: 96% Weight: 250 lbs 06/22/2016 Blood Pressure 1: 118/70 Code : 8480-6 BMI: 32.1 Code : 68172-2 Heart Rate 1 : 70 bpm Height: 6'2" SpO2: 97% Weight: 250 lbs 05/23/2016 Blood Pressure 1: 128/80 Code : 8480-6 BMI: 32.1 Code : 92949-1 Heart Rate 1 : 76 bpm Height: 6'2" SpO2: 98% Weight: 250 lbs 05/15/2016 Blood Pressure 1: 110/90 Code : 8480-6 BMI: 31.3 Code : 12760-2 Heart Rate 1 : 111 bpm Height: 6'2" SpO2: 97% Temperature: 36.6 (C) / 97.8 (F) Weight: 244 lbs 01/20/2016 Blood Pressure 1: 128/76 Code : 8480-6 BMI: 33.0 Code : 61883-5 Heart Rate 1 : 103 bpm Height: [...] in left shoulder[ICD10: M25.512] Madeline Ha MD, [facility] CPT-4: 30563 08/27/2017 ([id number]) 76089 EST. PATIENT, LEVEL IV Diagnosis: Essential (primary) hypertension[ICD10: I10] Diagnosis: Type 2 diabetes mellitus with hyperglycemia[ICD10: E11.65] Diagnosis: VACCIN FOR INFLUENZA[ICD10: Z23] [facility] CPT-4: 63365 08/16/2017 [id number] EST. PATIENT, LEVEL III Diagnosis: Zoster without complications[ICD10: B02.9] Madeline Ha MD, [facility] CPT-4: 37763 07/26/2017 [id number] [id number] EST. PATIENT, LEVEL III Diagnosis: Cellulitis of right lower limb[ICD10: L03.115] Marcela Ha MD, [facility] CPT-4: 55465 07/03/2017 04815 EST. PATIENT, LEVEL II Diagnosis: Laceration without foreign body of left forearm, initial encounter[ ICD10: S51.812A] Marcela Ha MD [facility] CPT-4: 42495 06/29/2017 ([id number]) 97109 EST. PATIENT, LEVEL III Diagnosis: Cellulitis of right lower limb[ICD10: L03.115] Diagnosis: Type 2 diabetes mellitus with foot ulcer[ICD10: E11.621] Marcela Ha MD [facility] CPT-4: 68395 06/18/2017 ([id number]) 29163 EST. PATIENT, LEVEL IV Diagnosis: Cellulitis of right lower limb[ICD10: L03.115] Diagnosis: Acute laryngopharyngitis[ICD10: J06.0] Diagnosis: Gastro-esophageal reflux disease without esophagitis[ICD10: K21.9] Marcela Ha MD [facility] CPT-4: 84129 06/07/2017 ([id number]) 45756 EST. PATIENT, LEVEL III Diagnosis: Type 2 diabetes mellitus with hyperglycemia[ICD10: E11.65] Diagnosis: Insect bite (nonvenomous) of abdominal wall, initial encounter[ICD10 : S30.861A] Marcela Ha MD [facility] CPT-4: 68654 05/17/2017 ([id number]) 23796 EST. PATIENT, LEVEL III Diagnosis: Allergic contact dermatitis due to plants, except food[ICD10: L23.7] Melida Ha MD [facility] CPT-4: 79101 05/04/2017 ([id number]) 57683 EST. PATIENT, LEVEL III Diagnosis: Essential (primary) hypertension[ICD10: I10] Marcela Ha MD [facility] CPT-4: 07669 03/15/2017 ([id number]) 97559 EST. PATIENT, LEVEL III Diagnosis: Cough[ICD10: R05] Diagnosis: Essential (primary) hypertension[ICD10: I10] Marcela Ha MD [facility] CPT-4: 35055 03/01/2017 ([id number]) 15288 EST. PATIENT, LEVEL III Diagnosis: Cough[ICD10: R05] Diagnosis: Nasal congestion[ICD10: R09.81] Diagnosis: Acute recurrent maxillary sinusitis[ICD10: J01.01] Marcela Ha MD, [facility] CPT-4: 47107 02/16/2017 ([id number]) 84079 EST. PATIENT, LEVEL III Diagnosis: Type 2 diabetes mellitus with hyperglycemia[ICD10: E11.65] Marcela Ha MD [facility] CPT-4: 64304 02/12/2017 ([id number]) 56200 EST. PATIENT, LEVEL IV Diagnosis: Type 2 diabetes mellitus with hyperglycemia[ICD10: E11.65] Diagnosis: Muscle weakness (generalized)[ICD10: M62.81] Diagnosis: Disorientation, unspecified[ICD10: R41.0] Marcela Ha MD, [facility] CPT-4: 89781 02/05/2017 ([id number]) Patient admitted to the hospital from clinic (NO CHARGE) Diagnosis: Type 2 diabetes mellitus with hyperglycemia[ICD10: E11.65] Diagnosis: Disorientation, unspecified[ICD10: R41.0] Diagnosis: Muscle weakness (generalized)[ICD10: M62.81] Marcela Ha MD, [facility] CPT-4: 97713J 01/29/2017 ([id number]) Miscellaneous no charge Diagnosis: Cellulitis of right lower limb[ICD10: L03.115] Marcela Ha MD, [facility] CPT-4: 99039 10/13/2016 ([id number]) Miscellaneous no charge Diagnosis: Type 2 diabetes mellitus with foot ulcer[ICD10: E11.621] Diagnosis: Pain in right foot[ICD10: M79.671] Marcela Ha MD, [facility] CPT-4: 12927 10/09/2016 85565 EST. PATIENT, LEVEL II Diagnosis: Cellulitis of right lower limb[ICD10: L03.115] [facility] CPT-4: 21585 10/06/2016 ([id number]) 17718 EST. PATIENT, LEVEL IV Diagnosis: Low back pain[ICD10: M54.5] Diagnosis: Other deformities of toe(s) (acquired), left foot[ICD10: M20.5X2] Diagnosis: Type 2 diabetes mellitus with foot ulcer[ICD10: E11.621] [facility] CPT-4: 56864 07/18/2016 ([id number]) 21769 EST. PATIENT, LEVEL III Diagnosis: Type 2 diabetes mellitus with hyperglycemia[ICD10: E11.65] [facility] CPT-4: 18964 06/22/2016 ([id number]) 63836 EST. 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 PATIENT, LEVEL IV Diagnosis: Type 2 diabetes mellitus with other specified complication[ICD10: E11.69] Diagnosis: Dehydration[ICD10: E86.0] Marcela Ha MD, [facility] CPT-4: 43313 05/15/2016 ([id number]) OFFICE VISIT, NEW - LEVEL 3 Diagnosis: Allergic contact dermatitis due to plants, except food[ICD10: L23.7] [facility] CPT-4: 01531 01/20/2016 Plan of Care Planned Activity Notes Codes Status Date Appointment: [facility] [phone] [facility] (15 min) Moderate 08/27/2017 Patient Education: Patient Medication Summary Completed 08/27/2017 Appointment: Melida Ha [facility] [place] [place] (30 min) Complex 08/16/2017 Patient Education: Patient Medication Summary Completed 08/16/2017 Patient Education: Obesity Completed 08/16/2017 Appointment: Madeline Kennedy [facility]Ptel[facility] [place] (30 min) Complex 08/07/2017 Appointment: Madeline Kennedy WPtel[facility] [place] (15 min) Moderate 07/26/2017 Patient Education: Patient Medication Summary Completed 07/26/2017 Appointment: [facility] [phone] [phone] [place] (30 min) Complex 07/03/2017 Patient Education: Patient Medication Summary Completed 07/03/2017 App[facility]ment: [facility] [phone] [phone] [place] (15 min) Moderate 06/29/2017 Patient Education: Patient Medication Summary Completed 06/29/2017 Appointment: Lab Draw 06/21/2017 Patient Education: Patient Medication Summary Completed 06/21/2017 Appointment: Marcela Oshea WPtel[phone] (15 min) Moderate 06/18/2017 Patient Education: Patient Medication Summary Completed 06/18/2017 Appointment: Marcela Oshea WPtel: [phone] [place] (10 min) Simple 06/07/2017 Patient Education: Patient Medication Summary Completed 06/07/2017 Appointment: Marcela Oshea WPtel: [phone] [place] (30 min) Complex 05/17/2017 Patient Education: Patient Medication Summary Completed 05/17/2017 Patient Education: Obesity Completed 05/17/2017 Appointment: Marcela Oshea WPtel: [phone] [place] (30 min) Complex 05/04/2017 Patient Education: Patient Medication Summary Completed 05/04/2017 Appointment: [facility] [phone] [phone] [place] (15 min) Moderate 03/15/2017 Patient Education: Patient Medication Summary Completed 03/15/2017 App[facility]ment: [facility] [phone] [phone] [place] (30 min) Complex 03/12/2017 Patient Education: Patient Medication Summary Completed 03/01/2017 Appointment: [facility] [phone] [phone] [place] (15 min) Moderate 02/16/2017 Patient Education: Patient Medication Summary Completed 02/16/2017 App[facility]ment: [facility] [phone] [phone] [place] (30 min) Complex 02/12/2017 Patient Education: Patient Medication Summary Completed 02/12/2017 App[facility]ment: [facility] [phone] [phone] [place] (30 min) Complex 02/06/2017 Appointment: [facility] [phone] [phone] [place] (30 min) Complex 02/05/2017 Patient Education: Patient Medication Summary Completed 02/05/2017 Appointment: [facility] [phone] [phone] [place] (30 min) Complex 01/30/2017 Appointment: [facility] [phone] [phone] [place] (30 min) Complex 01/29/2017 Patient Education: Patient Medication Summary Completed 01/29/2017 Patient Education: Obesity Completed 01/29/2017 Appointment: [facility] [phone] [phone] [place] (15 min) Moderate 10/13/2016 Patient Education: Patient Medication Summary Completed 10/13/2016 Appointment: Marecla Oshea WPtel: [phone] [phone] [place] (30 min) Complex 10/12/2016 Appointment: Marcela Oshea WPtel: [phone] [phone] [place] (30 min) Complex 10/09/2016 Patient Education: Patient Medication Summary Completed 10/09/2016 Appointment: Marcela Oshea WPtel: [phone] [phone] [place] (10 min) Simple 10/06/2016 Patient Education: Patient Medication Summary Completed 10/06/2016 Appointment: Marcela Oshea WPtel: [phone] [phone] [place] (30 min) Complex 08/24/2016 Referral: Sun Glynn Referral Completed 07/21/2016 Appointment: Marcela Oshea WPtel: [phone] [phone] [place] (30 min) Complex 07/18/2016 Patient Education: Patient Medication Summary Completed 07/18/2016 Patient Education: Obesity Completed 07/18/2016 Care Plan: Referral Order SNOMED-CT : [id number] Pending 07/18/2016 Appointment: Marcela Oshea WPtel: [phone] [phone] [place] (30 min) Complex 06/22/2016 Patient Education: Patient Medication Summary Completed 06/22/2016 Patient Education: Obesity Completed 06/22/2016 Appointment: Marcela Oshea WPtel: [phone] [phone] (30 min) Complex 05/23/2016 Patient Education: Patient Medication Summary Completed 05/23/2016 Patient Education: Obesity Completed 05/23/2016 Patient Education: Patient Medication Summary Completed 05/17/2016 Patient Education: Patient Medication Summary Completed 05/17/2016 Care Plan: Cbc With Differential Pending 05/17/2016 [facility]ment[phone] [place] (15 min) Moderate 05/15/2016 Patient Education: Patient Medication Summary Completed 05/15/2016 Patient Education: Obesity Completed 05/15/2016 Patient Education: Patient Medication Summary Completed 01/20/2016 Patient Education: Obesity Completed 01/20/2016 Referral: Sun Glynn Referral Initiated Instructions No Instructions
[2018-05-28] MEDS ORDERED: CATHETER FLUSH 10 ML SYR IV PRN (12:30)
--- NOTE | 2018-05-28 13:26 | Physical Therapy Evaluation ---
PT Evaluation-General Medical Diagnosis Admission Date May 28, 2018 at 11:50 Medical Diagnosis: left great toe and 4th/5th toe amputation Onset Date: May 16, 2018 Therapy Diagnosis Therapy Diagnosis: generalized weakness/debility Height/Weight Height (Feet): 6 Height (Inches): 4.00 Weight (Pounds): 258 Weight (Ounces): 9.0 Weight Bear Status Right Lower Extremity: Right Full Weight Bearing Left Lower Extremity: Left Non Weight Bearing Referral Physician: Justin Reason for Referral: Evaluation/Treatment Medical History Pertinent Medical History: DM, HTN, TX Additional Medical History on vent for several days secondary to TX/stenting/amputations/osteomyelitis Current History transfer from [facility] Home: Single Level Current Living Status: Spouse Entry Into Home: Stairs With Railing PT Steps Into Home: 4 Prior/Core FIM Prior Level of Function Functional [place] Measure 0=Not Assessed/NA 4=Minimal Assistance 1=Total Assistance 5=Supervision or Setup 2=Maximal Assistance 6=Modified [place] 3=Moderate Assistance 7=Complete [place] Bed Mobility: 7 Transfers (B,C,W/C) (FIM): 7 Gait: 7 Locomotion: 7 PT Evaluation-Current Subjective Patient agrees to PT. Pain Numeric Pain Scale: 5-Moderate Pain Location: Left Location Body Site: Foot Pain Description: Ache, Pressure, Acute Objective Patient Orientation: Normal For Age Problem Solving: Fair ROM/Strength ROM Lower Extremities right LE WFL left LE in CAM boot Strenght Lower Extremities right LE 4/5 grossly left LE NT due to NWB Integumentary/Posture Integumentary refer to nursing notes (multiple gluteal decubitus ulcers left ) Bowel Incontinence: No Bladder Incontinence: No Posture WFL Neuromuscular (Tone, Coordination, Reflexes) grossly intact Sensory Vision: Functional Hearing: Functional Sensation Right Lower Extremit: Impaired Sensation Left Lower Extremity: Impaired Transfers Functional [place] Measure 0=Not Assessed/NA 4=Minimal Assistance 1=Total Assistance 5=Supervision or Setup 2=Maximal Assistance 6=Modified [place] 3=Moderate Assistance 7=Complete IndependenceIRFPAI Quality Coding Scale 6 Independent with activity with or without an assistive device 5 Patient requires set up or clean up by helper. Patient completes activity by themselves 4 Supervision or touching assist (CGA). [place] provide cues , steadying assist 3 The helper provides less than half the effort to complete the activity 2 The helper provides more than half the effort to complete the activity 1 Dependent. The helper does all the effort to complete an activity 7 Patient refused to complete or attempt activity 9 The patient did not perform the activity before the current illness or injury 88 Not attempted due to Medical conditions or safety concerns Transfers (B, C, W/C) (FIM): 5 Scootin Rollin Roll Left to Right (QC): 6 Supine to/from Sit: 5 Sit to/from Stand: 5 Sit to Lying (QC): 6 Lying to Sitting/Side of Bed(Q: 6 Sit to Stand (QC): 5 Chair/Bzz-nh-Mnxdy Xfer(QC): 5 Car Transfer (QC): 6 Gait Does the Patient Walk?: Yes Mode of Locomotion: Walk (knee scooter) Anticipated Mode of Locomotion: Walk Gait (FIM): 5 Distance (FIM): 3=150 ft Walk 10 feet (QC): 5 Walk 50 ft with 2 Turns(QC): 5 Walk 150 ft (QC): 5 Walking 10ft/uneven surface-QC: 5 Distance: 200' x 4 Gait Level of Assist: 5 Comments/Gait Description knee scooter for NWB left LE Patient is able to perform NWB left LE with FWW short distances only, SBA Stairs Stairs (FIM): 1 #of Steps: 1 Level of Assist: 5 1 Step (curb) (QC): 5 4 Steps (QC): 88 Assistive Device: Walker 12 Steps (QC): 88 Balance Sitting Static: Normal Sitting Dynamic: Normal Standing Static: Fair Standing Dynamic: Fair Picking up an Object (QC): 5 Treatment Patient agreed to p.m. treatment. SBA to modified independent with transfers and mobility with knee scooter 200' x 4 with recovery periods due to fatigue. Bilateral Le exercises in sit and supine 15 reps each x 2 sets of the following : AP, LAQ, SAQ, HS, SLR, QS. Patient has had a plantar release of the right foot years prior. Unable to demonstrate plantarflexion right foot. Assessment/Needs 57 y.o. male, will benefit from skilled PT to address functional mobility to ensure safe return to home with family at maximum LOF. Patient is very adamant about possible LOS and wanting to return to home [place]. PT discussed with patient the pros of receiving therapy services vs the possible negative side effects of returning home too quickly. PT consulted with SW about patient's concerns. PT to increase activity as tolerated by patient. Rehab Potential: Fair Post Rehab Potential-Barriers: NWB left LE compliance PT Detention Goals Detention Goals PT Detention Goals Time Frame: Jun 14, 2018 Transfers (B,C,W/C) (FIM): 6 Sit to Lying (QC): 6 Lying-Sitting on Side/Bed(QC): 6 Sit to Stand (QC): 6 Rollin Roll Left to Right (QC): 6 Chair/Bvh-eu-Qrgkw Xfer(QC): 6 Car Transfer (QC): 6 Does the Patient Walk: Yes Gait (FIM): 6 Gait distance (FIM): 3=150 ft Distance: 250' Walk 10 feet (QC): 6 Walk 10ft-Uneven Surface(QC): 6 Walk 50ft with 2 Turns (QC): 6 Walk 150 ft (QC): 6 Gait Level of Assist: 6 Gait Assistive Device: FWW (and knee scooter) Stairs (FIM): 2 # of Steps: 4 1 Step (curb) (QC): 5 4 Steps (QC): 5 12 Steps (QC): 88 Stairs Level Of Assist: 5 Picking up an Object (QC): 6 PT Plan Problem List Problem List: Activity Tolerance, Functional Strength, Safety, Gait Treatment/Plan Treatment Plan: Continue Plan of Care Treatment Plan: Bed Mobility, Education, Functional Activity Amy, Functional Strength, Group Therapy, Gait, Safety, Therapeutic Exercise, Transfers Treatment Duration: Jun 14, 2018 Frequency: At least 5 of 7 days/Wk (IRF) Estimated Hrs Per Day: 1.5 hours per day Patient and/or Family Agrees t: Yes Safety Risks/Education Patient Education: Gait Training, Safety Issues Teaching Recipient: Patient Teaching Methods: Demonstration, Discussion Response to Teaching: Verbalize Understanding, Return Demonstration Discharge Recommendations Therapy D/C Recommendations: Home w/ Family Support Time/GCodes Time In: 1150 Time Out: 1440 Total Billed Treatment Time: 75 Total Billed Treatment 2 visits EVModC 15 min ([id number]) EX x 2 31 min ([id number]) FA x 2 29 min ([id number]) MORAIMA PETTY PT May 28, 2018 13:26
--- NOTE | 2018-05-28 13:55 | ST Cognitive Linguistic Eval ---
Speech Evaluation-General Medical Diagnosis left great toe and 4th/5th toe amputation Onset Date: May 16, 2018 Therapy Diagnosis Therapy Diagnosis: Cognition Referral Referring Physician: Dr. 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 Subjective Pt pleasant and cooperative. Pain Numeric Pain Scale: 0-No Pain Language Eval: Auditory Comprehends Simple Yes/No Ques: Functional Follows Complex Directions: Functional Follows General Conversations: Functional Language Eval: Verbal Language Completes Spontaneous Greeting: Functional Requests Basic Needs: Functional States Basic Personal Info: Functional Expresses Complex Ideas: Functional Language Evaluation: Reading NT Objective Cognitive Domain Attention: WNL Memory: WNL Problem Solving: Functional Objective Formal/Standardized Tests [facility] Cognitive Assessment was administered to assess cognitive-linguistic functioning. The results are as follows: MEMORY - 3 word recall: Immediate 3/3/; delayed 3/3; and remote 3/3, Details in Paragraphs - Immediate 4/4; Delayed 4/4. ORGANIZATION: 3/3 PROBLEM SOLVING: Simple 3/4; Abstract - 2/2.Comparison 4/5. Results Pt's cognitive-linguistic skills are WFL. Impression Functional cognitive-linguistic skills. Communication/Social Cognition Comprehension: 7 Expression: 7 Social Interaction: 7 Problem Solvin Memory: 7 Speech Patient Assess Expression of Ideas/Wants: Expression (4) Understanding Verbal Content: Understands (4) Repetition of Three Words: Three (3) Temporal Orientation: Year: Correct (3) Temporal Orientation: Month: Accurate within 5 days(2) Temporal Orientation: Day: Correct (1) Recall : Wear to say "Sock": Yes, no cue required (2) Recall : Color: Yes, no cue required (2) Recall : Bed: Yes, no cue required (2) Speech Short Term Goals Short Term Goals Short Term Goals Skilled ST not indicated at this time. Speech Usp Goals Medication Aid Goals Skilled ST not indicated at this time. Speech-Plan Patient/Family Goals Patient/Family Goals: to return home Treatment Plan Speech Therapy Treatment Plan: Discontinue ST Skilled ST not indicated. Frequency: Modified Program (IRF) (ST not indicated) Estimated Hrs Per Day: Other (0) Rehab Potential: Good Pt/Family Agrees to Plan: Yes Safety Risks/Education Teaching Recipient: Patient Teaching Methods: Discussion Response to Teaching: Verbalize Understanding Time Speech Therapy Time In: 13:10 Speech Therapy Time Out: 13:40 Total Billed Time: 30 Billed Treatment Time 1, BHARATNDCHAPARRO Morel May 28, 2018 13:55
--- NOTE | 2018-05-28 14:21 | Occupational Therapy Eval ---
OT Evaluation-General/PLF Medical Diagnosis Admission Date May 28, 2018 at 11:50 Medical Diagnosis: left great toe and 4th/5th toe amputation Onset Date: May 15, 2018 Therapy Diagnosis Therapy Diagnosis: decr self care, decr act tolerance, decr funct mob, weakness Height/Weight Height (Feet): 6 Height (Inches): 4.00 Weight (Pounds): 258 Weight (Ounces): 9.0 Precautions Precautions/Isolations: Fall Prevention, Standard Precautions Weight Bear Status Weight Bearing Restriction: Non Weight Bearing Location Restriction: L LE Referral Physician: Justin Referral Reason: Evaluation/Treatment Medical History Pertinent Medical History: CAD, DM, HTN, MD Additional Medical History Diabetic infection L foot, hx amputation L toes, all toes on R amputated. Failed bunionectomy. Enlarged heart. Bipolar. Chronic chest pain. Back fusion. Abdominal hernia. DDD. Chronic back pain. Anxiety, depression Current History Acute MD with stent, sent to [facility] for additional interventions. Had debridement and amputation toes 1,4,5 L foot. Complicated by time on vent. Reviewed History: Yes Social History Home: Single Level Current Living Status: Spouse Entry Into Home: Stairs With Railing Steps Into Home: 4 ADL-Prior Level of Function ADL PLOF Comments Pt reported that he has been able to manage all of his basic self care needs and also care for his home. 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 Pain reported 0/10 Appearance Alert, cooperative Mental Status/Objective Patient Orientation: Person, Place, Time, Situation Attachments: Central Line (midline L arm) Current Glasses/Contacts: Yes (reading) Dentures/Partials: No (no upper teeth - has upper denture but doesn't wear it) Hand Dominance: Right Upper Extremity ROM Grossly WFL bilat Upper Extremity Sensation No problems, per pt report Upper Extremity Strength Grossly 4+/5 bilat ADL-Treatment ADL-Current Pt declined to shower or change clothes today. He said that he can't get L leg wet for two weeks after surgery.has cam boot on L LE. Pt left up in recliner, all needs met. Functional [place] Measure 0=Not Assessed/NA 4=Minimal Assistance 1=Total Assistance 5=Supervision or Setup 2=Maximal Assistance 6=Modified [place] 3=Moderate Assistance 7=Complete IndependenceIRFPAI Quality Coding Scale 6 Independent with activity with or without an assistive device 5 Patient requires set up or clean up by helper. Patient completes activity by themselves 4 Supervision or touching assist (CGA). [place] provide cues , steadying assist 3 The helper provides less than half the effort to complete the activity 2 The helper provides more than half the effort to complete the activity 1 Dependent. The helper does all the effort to complete an activity 7 Patient refused to complete or attempt activity 9 The patient did not perform the activity before the current illness or injury 88 Not attempted due to Medical conditions or safety concerns Eating (FIM): 7 (Pt was able to open packages, feed himself, get a drink without assistance. Reported he could eat steak and anything he wants except spicy foods) Eating (QC): 6 Education OT Patient Education: Purpose of tx/functional activities, Rehab process Teaching Recipient: Patient Teaching Methods: Discussion Response to Teaching: Verbalize Understanding OT Short Term Goals Short Term Goals Time Frame: Jun 04, 2018 Toileting(FIM): 5 Toilet/Commode Transfer(FIM): 5 Additional Short Term Goals: 1-Demonstrate ADL Tasks, 2-Verbalize Understanding , 3-ImproveStrength/Amy 1=Demonstrate adherence to instructed precautions during ADL tasks. 2=Patient will verbalize/demonstrate understanding of assistive devices/ modifications for ADL. 3=Patient will improve strength/tolerance for activity to enable patient to perform ADL's. OT Glove Former Goals Glove Former Goals Time Frame: Jun 14, 2018 Eating (FIM): 7 Eating (QC): 6 Groomin Oral Hygiene (QC): 6 Bathing(FIM): 6 Shower/Bathe Self (QC): 6 Upper Body Dressing(FIM): 6 Upper Body Dressing (QC): 6 Lower Body Dressing(FIM): 6 Lower Body Dressing (QC): 6 On/Off Footwear (QC): 6 Toileting(FIM): 6 Toileting Hygiene (QC): 6 Toilet/Commode Transfer(FIM): 6 Toilet/Commode Transfer (QC): 6 Shower Transfer(FIM): 6 Additional Goals: 1-Demonstrate ADL Tasks, 2-Verbalize Understanding, 3- ImproveStrength/Amy 1=Demonstrate adherence to instructed precautions during ADL tasks. 2=Patient will verbalize/demonstrate understanding of assistive devices/ modifications for ADL. 3=Patient will improve strength/tolerance for activity to enable patient to perform ADL's. OT Education/Plan Problem List/Assessment Assessment: Decreased Activ Tolerance, Decreased UE Strength, Dependent Transfers, Impaired Funct Balance, Impaired Self-Care Skills Pt would benefit from skilled OT to increase his independence with basic self car to allow him to safely return to his home after surgery and time spent in ICU Discharge Recommendations Plan/Recommendations: Continue POC Treatment Plan/Plan of Care Treatment,Training & Education: Yes Patient would benefit from OT for education, treatment and training to promote independence in ADL's, mobility, safety and/or upper extremity function for ADL' s. Plan of Care: ADL Retraining, Functional Mobility, Group Exercise/Act as Ind ( education, exercise, activity tolerance, funct mobility), UE Funct Exercise/Act , UE Neuromus Re-Ed/Coord, OTHER (energy conservation educaiton) Treatment Duration: Jun 14, 2018 Frequency: At least 5 of 7 days/Wk (IRF) Estimated Hrs Per Day: 1.5 hours per day Agreement: Yes Rehab Potential: Good Time/GCodes Start Time: 12:30 Stop Time: 13:00 Total Time Billed (hr/min): 30 Billed Treatment Time visit, evaluation moderate intensity 20 minutes, ADL 10 minutes JOANN RAUSCH OT May 28, 2018 14:21
[2018-05-28] MEDS: metroNIDAZOLE 500MG/100ML IVPB 100 ML IV SCH ×2 (14:35→21:51)
[2018-05-28] MEDS: CATHETER FLUSH 10 ML SYR IV SCH ×2 (14:35→20:16)
--- NOTE | 2018-05-28 15:13 | HISTORY AND PHYSICAL ---
DATE OF SERVICE: 05/28/2018 CHIEF COMPLAINT: Difficulty with walking. 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 The patient underwent drug-eluting coronary stent placement, but just before discharge from ICU, he developed a fever, which was felt to be due to left foot ulcer. ID consultation was obtained. The patient was placed on vancomycin and Zosyn. The patient was transferred to hospitalist service after no further chest discomfort. Antibiotics were later adjusted to vancomycin, cefepime and Flagyl. Zosyn was discontinued. The patient was continued on antibiotics for chronic left foot ulcer with infection.He was seen by DPM and underwent amputation of the infected toes and foot He has a boot and is nonweightbearing on the left lower extremity. He is using a knee scooter for mobility as well as a wheelchair. He is now referred to inpatient rehabilitation unit at [facility]. He lives with his spouse in [place], [place]. Currently, he is standby assist for transfers. He is nonweightbearing on the left lower extremity. He utilizes a knee scooter to ambulate short distances. He requires assistance for wheelchair mobility. He is modified independent for eating, set up for grooming, min assist for upper body dressing, dependent for lower body dressing. He is reported to be continent of bowel and bladder. PAST MEDICAL HISTORY: Infection of diabetic foot ulcer left, diabetes mellitus, dilated cardiomyopathy, acute coronary syndrome, hypertension, type 2 diabetes mellitus with circulatory disorder, status post drug-eluting coronary stent placement, acute delirium, history of bipolar disorder, metabolic acidosis, thrombocytopenia, fever, type 2 diabetes mellitus with hyperglycemia, tobacco use. PAST SURGICAL HISTORY: He is status post wound debridement and toe amputation workup 1, 4, 5 on the left, metatarsal head excision 2 and 3 on left and gastrocnemius recession, left.He has had amputaion of the toes of the rt foot in the past and reports no issues with regard to pain or ulcers in the rt leg PAST SURGICAL HISTORY: As per above. ALLERGIES: ZYVOX. FAMILY HISTORY: Dm,cardiac D SOCIAL HISTORY: As per above. REVIEW OF SYSTEMS: A 10-point review of systems, he reports no pain or numbness in the right foot. MEDICATIONS: 1. ASA 81 mg p.o. daily. 2. Lipitor 80 mg p.o. daily. 3. Coreg 6.25 mg p.o. b.i.d. 4. Maxipime 2000 mg IV q.12 hours for 11 days. 5. Flagyl 500 mg q.8 hours for 11 days. 6. Brilinta 90 mg p.o. b.i.d. 7. Vancomycin 1500 mg q.12 hours for 11 days. His PCP is Dr. Ha. Case was discussed with referring hospitalist today with Dr. Cheng by phone. PHYSICAL EXAMINATION: GENERAL: Significant for a male, appearing in his stated age, sitting in a chair in no acute distress with Boot on left. VITAL SIGNS: Within normal limits. He is afebrile. HEENT: Vision, speech, hearing grossly intact. No oral lesion is noted. NECK: Supple without mass. HEART: Regular rhythm. CHEST: Clear. ABDOMEN: Soft, nontender, bowel sounds are present. EXTREMITIES: No lower leg edema. No calf tenderness on the right.Well healed Amputaions of the toes Left foot is in boot. MUSCULOSKELETAL: The patient has functional active range of motion of both upper limbs and right lower limb. NEUROLOGIC: Cognition is grossly intact. Sensation is intact to touch to right leg. Strength 4+/5 both upper limbs. Left lower limb not tested due to nonweightbearing status. Right lower limb grossly 4/5. SKIN: He has pressure sores over the left buttock with Xeroform being applied daily. IMPRESSION: 1. Disuse myopathy s/p Sepsis with Vent support due to Infected daibetic foot ulcer 2 Ambulatory dysfunction secondary to left forefoot amputation as outlined above. Nonweightbearing left lower extremity. 3 An infected left diabetic foot ulcer, status post surgical procedure and on IV antibiotics x3 for the next 11 days. 4 Multivessel coronary artery disease, status post care by Dr. Rose, Cardiology, [facility], status post stent. 5. Type 2 diabetes mellitus with circulatory disorder. 6. History of bipolar disorder. 7. Thrombocytopenia. 8. Tobaccoism. 9.prior amputaion of the rt toes well healed PLAN: The patient will have a comprehensive program of inpatient rehabilitation with goal of maximizing level of functional independence prior to discharge home with his spouse. He has commercial insurance thru his 's insurance and they approved his stay for initial seven days. The patient will have PT and OT 90 minutes per day each discipline, 5 days a week for 7 to 10 days with the goal of maximizing level of function dependence prior to discharge home with his spouse. Hopefully, modified independent to supervision for ADLs and mobility skills at the wheelchair level of function. Speech therapy to do cognitive assessment and treat as indicated. Rehabilitation nursing to assist with bowel, bladder, skin, wound care, medication administration, pain management and social studies department chair to assist with discharge planning and community reentry. Clinical pharmacist to follow vancomycin peak and troughs as needed. Additional labs as needed. Consult Dr. Ha, PCP for postop medical management. Consult Dr. Linn, neonatal specialist. Consult Dr. Brennan Cardiology.F/U with his surgeon upon discharge from this facility. ESTIMATED LENGTH OF STAY: 10 to 14 days. PROGNOSIS: Rehab prognosis appears good for the above goals in mind. DIET: Carb consistent. CODE STATUS: Full code. Job ID: [id number] DocumentID: [id number] Dictated Date: 05/28/2018 14:22:50 Program Services Assistant Date: 05/28/2018 15:12:25 Dictated By: MICHEL CHENG MD MTDD
--- NOTE | 2018-05-28 15:41 | Occupational Ther Daily Note ---
OT Current Status-Daily Note Subjective Pt seen in room, up in recliner, agreeable to OT. No pain mentioned. Appearance Alert, cooperative Mental Status/Objective Functional [place] Measure 0=Not Assessed/NA 4=Minimal Assistance 1=Total Assistance 5=Supervision or Setup 2=Maximal Assistance 6=Modified [place] 3=Moderate Assistance 7=Complete [place] ADL-Treatment Pt agreeable to toileting. Able to get up from recliner but a little difficulty placing scooter. Awkward positioning of scooter to get through bathroom door and for toilet transfer. Able to get on/off tall toilet using grab bar and scooter handle for balance - would benefit from BSC over toilet but toilet seat doesn't fit him well. Used FWW for balance for hygiene - one time LOB backwards , with OT helping and reaching for grab bar to catch himself. Walked to sink with CGA, FWW to wash hands and then to recliner, CGA. Skilled cues for walker and hand placement at sink and for transfer Functional [place] Measure 0=Not Assessed/NA 4=Minimal Assistance 1=Total Assistance 5=Supervision or Setup 2=Maximal Assistance 6=Modified [place] 3=Moderate Assistance 7=Complete IndependenceIRFPAI Quality Coding Scale 6 Independent with activity with or without an assistive device 5 Patient requires set up or clean up by helper. Patient completes activity by themselves 4 Supervision or touching assist (CGA). Allred provide cues , steadying assist 3 The helper provides less than half the effort to complete the activity 2 The helper provides more than half the effort to complete the activity 1 Dependent. The helper does all the effort to complete an activity 7 Patient refused to complete or attempt activity 9 The patient did not perform the activity before the current illness or injury 88 Not attempted due to Medical conditions or safety concerns Grooming (FIM): 5 (SBA standing at sink to wash hands. Pt educ to lean against sink for balance assist) Oral Hygiene (QC): 4 Toileting (FIM): 4 (CGA for balance with clothing management and for wiping. Pt had old football injury that limits shoulder positioning for wiping with R UE. ) Toileting Hygiene (QC): 4 Toilet/Commode Transfer (FIM): 4 (CGA getting on and off tall toilet, with grab bar, FWW) Toilet Transfer (QC): 4 (CGA) Other Treatment Pt did 10-12 reps bilat UE exercise with red theraband (medium resistance), after pt educ. Occasional verbal or physical cues to do them correctly. To strengthen arms to help with safe transfers. Pt left up in recliner, all needs met. Education OT Patient Education: Exercise program, Modified ADL techniques, Purpose of tx/ functional activities, Safety issues, Transfer techniques Teaching Recipient: Patient Teaching Methods: Demonstration, Discussion Response to Teaching: Verbalize Understanding, Return Demonstration OT Short Term Goals Short Term Goals 1=Demonstrate adherence to instructed precautions during ADL tasks. 2=Patient will verbalize/demonstrate understanding of assistive devices/ modifications for ADL. 3=Patient will improve strength/tolerance for activity to enable patient to perform ADL's. OT Engine Mechanic Goals Engine Mechanic Goals Time Frame: Jun 14, 2018 Eating (FIM): 6 Toileting(FIM): 6 1=Demonstrate adherence to instructed precautions during ADL tasks. 2=Patient will verbalize/demonstrate understanding of assistive devices/ modifications for ADL. 3=Patient will improve strength/tolerance for activity to enable patient to perform ADL's. OT Education/Plan Problem List/Assessment Pt would benefit from skilled OT to increase his independence with basic self car to allow him to safely return to his home after surgery and time spent in ICU Discharge Recommendations Plan/Recommendations: Continue POC Treatment Plan/Plan of Care Patient would benefit from OT for education, treatment and training to promote independence in ADL's, mobility, safety and/or upper extremity function for ADL' s. Plan of Care: ADL Retraining, Functional Mobility, Group Exercise/Act as Ind ( education, exercise, activity tolerance, funct mobility), UE Funct Exercise/Act , UE Neuromus Re-Ed/Coord, OTHER (energy conservation educaiton) Treatment Duration: Jun 14, 2018 Frequency: At least 5 of 7 days/Wk (IRF) Estimated Hrs Per Day: 1.5 hours per day Agreement: Yes Rehab Potential: Good Time/GCodes Start Time: 14:45 Stop Time: 15:30 Total Time Billed (hr/min): 45 Billed Treatment Time visit, 35 minutes ADL, 10 minutes exercise JOANN RAUSCH OT May 28, 2018 15:41
[2018-05-28 16:03] VITALS: BP 116/75
--- NOTE | 2018-05-28 16:53 | Consultation-Cardiology ---
HPI-Cardiology Cardiology Consultation: Date of Consultation 05/28/18 Date of Admission Attending Physician Beni Anderson MD Admitting Physician Melida Ha MD Consulting Physician Chris BRENNAN MD HPI: Time Seen by Provider: 17:00 Chief Complaint: Inpatient rehabilitation This is a 57-year-old gentleman who has history of diabetes. He presented recently to our hospital with complaints of chest pain and was diagnosed with high risk ACS. PCI to OM 2 was done with drug-eluting stent. Patient had total occlusion of mid LAD and continued to have resting chest pain therefore was transferred to [facility] for RESEARCH DEVELOPMENT DIRECTOR LAD PCI which was successfully performed. The patient became agitated and was intubated at the hospital. Intra-aortic balloon pump was also placed. Subsequently the patient also became septic because of diabetic ulcers on left lower extremity and was treated with broad spectrum antibiotics. Patient subsequently improved and was transferred to our hospital for inpatient rehabilitation. Review of Systems-Cardiology Review of Systems Constitutional: As described under HPI; No As described under HPI, No no symptoms reported, No chills, No fever, No lightheadedness Eyes: No As described under HPI, No no symptoms reported, No blindness, No blurred vision, No contact lenses, No drainage, No decreased acuity, No foreign body sensation, No pain, No vision change Ears/Nose/Throat: No As described under HPI, No no symptoms reported, No chronic hearing loss, No ear discharge, No ear pain, No nasal drainage, No ulcerations Respiratory: No no symptoms reported; As described under HPI; No As described under HPI, No cough, No orthopnea, No shortness of breath, No SOB with excertion Cardiovascular: No no symptoms reported; As described under HPI; No As described under HPI, No chest pain, No edema, No irregular heart rate, No lightheadedness, No palpitations Gastrointestinal: No no symptoms reported, No As described under HPI, No abdomen distended, No abdominal pain, No blood streaked bowels, No constipation , No diarrhea, No nausea, No vomiting, No stool coloration changes Genitourinary: No As described under HPI, No burning, No dysuria, No discharge , No frequency, No flank pain, No hematuria, No urgency Skin: No rash, No skin related problems; ulcerations Psychiatric/Neurological: No anxiety, No depression, No seizure, No focal weakness, No syncope Hematologic: No bleeding abnormalities TYT-Jubrwx-Ekaxur Hx Patient Social History Smoking Status: Never a Smoker 2nd Hand Smoke Exposure: No Recent Foreign Travel: No Recent Infectious Disease Expo: No Immunizations Up To Date Tetanus Booster (TDap): Unknown Date of Pneumonia Vaccine: Jan 02, 2011 Date of Influenza Vaccine: Aug 05, 2013 Past Medical History PMH As described under Assessment. Family Medical History Family History: Family history: Cardiovascular disease 19 FATHER Family history: Diabetes mellitus 19 MOTHER Allergies and Home Medications Allergies Coded Allergies: linezolid (Verified Allergy, Unknown, 05/28/18) Home Medications Clonazepam 1 Mg Tablet, 2 MG PO HS, (Reported) TAKES 2 (1 MG) TABLETS Duloxetine HCl 30 Mg Capsule.dr, 30 MG PO DAILY, (Reported) Insulin Glargine,Hum.rec.anlog 300 Unit/1 Ml Insuln.pen, 50 UNIT SQ DAILY, ( Reported) Meloxicam 15 Mg Tablet, 15 MG PO DAILY, (Reported) Pregabalin 50 Mg Capsule, 50 MG PO DAILY, (Reported) Patient Home Medication List Home Medication List Reviewed: Yes Physical Exam-Cardiology Physical Exam Vital Signs/I&O 05/28/18 05/28/18 05/28/18 11:50 14:52 16:03 Temp 98.4 97.0 Pulse 91 87 Resp 16 16 B/P (MAP) 126/81 (96) 116/75 (89) Pulse Ox 96 95 O2 Delivery Room Air Room Air Room Air Capillary Refill : Constitutional: appears stated age, AAO x 3; No apparent distress; well- developed, well-nourished HEENT: PERRL; No normal ENT inspection, No TMs normal, No pharynx normal, No scleral icterus (R), No scleral icterus (L), No pale conjunctivae (R), No pale conjunctivae (L), No photophobia, No TM abnormal (R), No TM abnormal (L), No pharyngeal erythema, No tonsillar exudate, No other, No discharge, No EOMI; hearing is well preserved; No hard of hearing; oral hygience is good; No ulceration, No xanthelasmas are seen Neck: No non-tender, No full range of motion, No supple, No normal inspection, No carotid bruit, No limited range of motion, No lymphadenopathy (R), No lymphadenopathy (L), No tender lateral, No tender midline, No thyromegaly, No other; carotid pulses are 2 + bilaterally; No with good upstrokes Respiratory: No accessory muscle use, No respiratory distress, No chest tender , No chest expansion is symmetric; chest is bilaterally symmetric; No lungs clear to percussion; lungs clear to auscultation; No crackles, No rhonchi, No rales, No stridor, No wheezing, No pleural rub, No other Cardiovascular: regular rate-rhythm; No irregularly irregular, No extra beats, No parasternal heave is noted, No JVD, No edema, No bradycardia, No tachycardia , No point of maximal impulse, No cardiac thrills are palpable; S1 and S2; No gallop/S3, No gallop/S4, No diastolic murmur, No systolic murmur, No friction rub, No click, No other Gastrointestinal: No tender, No soft, No round, No distended, No pulsatile mass , No organomegaly, No guarding, No rebound, No tenderness, No hernia, No mass, No audible bowel sounds, No abnormal bowel sounds, No abdominal bruits, No spleenomegaly, No other Rectal: deferred Extremities: No normal range of motion, No non-tender, No normal inspection, No pedal edema, No calf tenderness, No normal capillary refill, No pelvis stable , No calf tenderness, No inflammation, No pedal edema, No slow capillary refill , No swelling, No other, No abrasion, No clubbing, No cyanosis, No ecchymosis, No laceration, No no lower extremity edema bilateral, No significant edema, No tenderness, No wound Neurologic/Psychiatric: no motor/sensory deficits, alert, normal mood/affect, oriented x 3, power is 5/5 both on sides Skin: No normal color, No warm/dry, No cyanosis, No cool, No diaphoresis, No damp, No ecchymosis, No jaundice, No mottled, No pallor, No rash, No tattoos/ piercings, No ulcerations, No rash on exposed areas, No ulcerations on exposed areas, No other Data Review Labs Laboratory Tests 05/28/18 16:00: Glucometer 200H 05/28/18 22:19: Glucometer 207H ECG Impression ECG Initial ECG Rhythm: Normal Sinus A/P-Cardiology Assessment/Admission Diagnosis Recent ACS, PCI to mid LAD and OM 2 with drug-eluting stents, Cardiomyopathy, Nonhealing ulcers left lower extremity, Diabetes Plan Recent ACS, PCI to mid LAD and OM 2 with drug-eluting stents, dual antiplatelet therapy for at least 1 year. Statin, AZEB inhibitor and beta osmar. Cardiomyopathy, continue AZEB inhibitor and beta osmar. Nonhealing ulcers left lower extremity, PAD will be ruled out. I will recommend checking bilateral lower extremity arterial duplex. Diabetes, deferred to the primary team. Thank you for your consultation. Please call me if you have any questions. Casper Brennan MD, FACP, FACC, FSCAI, FHRS, CCDS Interventional Cardiology Cardiac Electrophysiology Vascular Medicine and Endovascular Interventions Clinical Quality Measures DVT/VTE Risk/Contraindication: Risk Factor Score Per Nursin RFS Level Per Nursing on Admit: 4+=Very High Chris BRENNAN MD May 28, 2018 4:53 pm
[2018-05-28] MEDS: VANCOMYCIN 1500 MG/NS 500 ML IVPB IV SCH ×2 (18:07)
[2018-05-28] MEDS: ACETAMINOPHEN 325 MG TABLET PO PRN ×2 (18:43→22:57)
--- NOTE | 2018-05-28 18:47 | Wound Care Assessment ---
Wound Care Assessment Date Seen by Provider: May 28, 2018 Time Seen by Provider: 16:45 Chief Complaint L lower back wound. HPI The patient is a 57 year old male recovering from a heart attack complicated by sepsis, respiratory failure. He developed a pressure injury to the left lower back area, currently treated with a bordered foam dressing. The patient has a healing, dressed L forefoot surgical wound under the care of the operating compo caster. The area of his L lower back is very tender and he avoids pressure to the area. Past Medical History: Admits Diabetes Type II, Admits Heart Disease Smoking Status: Never a Smoker Review of Systems Pulmonary: No Dyspnea Cardiovascular: No: Chest Pain Exam Vital Signs Date Time Temp Pulse Resp B/P (MAP) Pulse Ox O2 Delivery O2 Flow Rate FiO2 05/28/18 16:03 97.0 87 16 116/75 (89) 95 Room Air Capillary Refill : General Appearance: no apparent distress Respiratory: no respiratory distress Skin: other (L lower back -- 3.5 x 2.5 x 0.3 cm base 50% eschar, 50% slough, small s.s. drainage.) Results Laboratory Tests 05/28/18 16:00: Glucometer 200H Assessment/Plan/Dx 1. Pressure ulcer, L lower back, unstageable. 2. Diabetes mellitus, poorly controlled. 3. Coronary artery disease. 4. S/P transmetatarsal amputation, L foot. Plan: would recommend continued bordered foam dressing to L lower back wound, air mattress. COLTON BEAL MD May 28, 2018 18:47
[2018-05-28] MEDS: CARVEDILOL 6.25 MG (COREG) TAB PO SCH (20:16)
[2018-05-28] MEDS: ATORVASTATIN 80 MG (LIPITOR) TABLET PO SCH (20:16)
[2018-05-28] MEDS: TICAGRELOR 90 MG TABLET (BRILINTA) PO SCH (20:16)
[2018-05-28] MEDS: CEFEPIME INJECTION 2,000 MG in NS (IVPB) 50 ML IV SCH (20:16)
[2018-05-28] MEDS ORDERED: clonazePAM 1 MG (KlonoPIN) TAB PO ONE (21:15)
[2018-05-28] MEDS ORDERED: clonazePAM 1 MG (KlonoPIN) TAB ONE (21:53)
[2018-05-28] MEDS: inSUlin ASPART (NovoLOG) 1 UNIT/0.01 ML (CHARGE PER UNIT) SC SCH (22:57)
[2018-05-29] MEDS: CATHETER FLUSH 10 ML SYR IV SCH ×3 (05:41→22:16)
[2018-05-29] MEDS: metroNIDAZOLE 500MG/100ML IVPB 100 ML IV SCH ×3 (05:41→22:16)
[2018-05-29 06:00] VITALS: BP 106/65
[2018-05-29] MEDS: inSUlin ASPART (NovoLOG) 1 UNIT/0.01 ML (CHARGE PER UNIT) SC SCH ×4 (06:30→20:35)
--- NOTE | 2018-05-29 08:41 | Consultation ---
History of Present Illness History of Present Illness Patient Consulted On(dm/time) 05/29/18 08:38 Date Seen by Provider: May 29, 2018 Time Seen by Provider: 09:00 Reason for Visit: SEPSIS POST PARTIAL LEFT FOOT AMPUTATION, AND CO History of Present Illness PT IS A 57 Y/O MALE WHO IS WELL KNOWN TO ME FROM CLINIC. HE PRESENTED TO [facility] ABOUT A WEEK AND A HALF AGO WITH CHEST PAIN, HE WAS TAKEN FOR HEART CATH, A STENT WAS PLACED, BUT PT PROGRESSIVELY HAD WORSENING SYMPTOMS, HE WAS SHIPPED TO [facility] IN [place] FOR EVALUATION BY CARDIOTHORACIC SURGEON WHO TOOK PT FOR REPEAT CATHETERIZATION, STENTING AND THEN HE THEN WENT INTO SEPTIC SHOCK FROM INFECTION ON HIS FOOT AND WAS SUBSEQUENTLY TAKEN FOR TRANSMETATARSAL AMPUTATION. HE HAD PROGRESSIVE WEAKNESS AND REQUIRED ADMISSION TO INPATIENT REHAB FOR CONTINUED IV ANTIBIOTICS WELL STRENGTHENING WITH PHYSICAL AND OCCUPATIONAL THERAPY PRIOR TO HIS DISCHARGE TO HOME. Allergies and Home Medications Allergies Coded Allergies: linezolid (Verified Allergy, Unknown, 05/28/18) Home Medications Clonazepam 1 Mg Tablet, 2 MG PO HS, (Reported) TAKES 2 (1 MG) TABLETS Duloxetine HCl 30 Mg Capsule.dr, 30 MG PO DAILY, (Reported) Insulin Glargine,Hum.rec.anlog 300 Unit/1 Ml Insuln.pen, 50 UNIT SQ DAILY, ( Reported) Meloxicam 15 Mg Tablet, 15 MG PO DAILY, (Reported) Pregabalin 50 Mg Capsule, 50 MG PO DAILY, (Reported) Patient Home Medication List Home Medication List Reviewed: Yes Past Fyjfsdl-Axbzsf-Altqsz Hx Past Med/Social Hx: Reviewed Nursing Past Med/Soc Hx, Reviewed and Corrections made Patient Social History Alcohol Use: Denies Use Recreational Drug Use: No Smoking Status: Never a Smoker 2nd Hand Smoke Exposure: No Recent Foreign Travel: No Contact w/Someone Who Travel: No Recent Infectious Disease Expo: No Recent Hopitalizations: Yes Ebola Symptoms: Denies Symptoms Listed Physical Abuse: No Sexual Abuse: No Mistreated: No Fear: No Immunizations Up To Date Tetanus Booster (TDap): Unknown PED Vaccines UTD: No Date of Pneumonia Vaccine: Jan 02, 2011 Date of Influenza Vaccine: Aug 05, 2013 Seasonal Allergies Seasonal Allergies: No Past Medical History Surgeries: Yes (ACL; Wrist; Heart stents) Abdominal, Amputation, Appendectomy, Gallbladder, Orthopedic, Tonsillectomy Respiratory: No Currently Using CPAP: No Currently Using BIPAP: No Cardiac: Yes (Heart stents) Coronary Artery Disease, Heart Attack, High Cholesterol, Hypertension Neurological: Yes Neuropathy, Stroke Reproductive Disorders: No Sexually Transmitted Disease: No HIV/AIDS: No Genitourinary: No Kidney Stones Gastrointestinal: Yes Abdominal Hernia Musculoskeletal: Yes (OSTEOMYELITIS WITH MULTIPLE TOE AMPUTATIONS, BACK FUSION X3) Degenerate Disk Disease, Arthritis, Chronic Back Pain Endocrine: Yes Diabetes, Insulin dep Are Your Blood Sugars Over 250: Yes HEENT: No Loss of Vision: Bilateral Hearing Impairment: Denies Cancer: No Psychosocial: Yes Anxiety, Depression Integumentary: No Blood Disorders: No Adverse Reaction/Blood Tranf: No Family Medical History Reviewed and Corrections made Family history: Cardiovascular disease 19 FATHER Family history: Diabetes mellitus 19 MOTHER Heart Disease (MOM), Diabetes (MOM), Hypertension (MOM), Psychiatric Problems ( BROTHER BIPOLAR, MOM BIPOLAR/DEPRESSION), Renal Disease, Vascular Disease Review of Systems-General Constitutional: No chills, No fever, No malaise; weakness EENTM: No hoarseness, No throat pain Respiratory: No cough, No dyspnea on exertion, No short of breath Cardiovascular: No chest pain; Hx of Intervention; No palpitations Gastrointestinal: No abdominal pain, No constipation, No diarrhea Genitourinary: no symptoms reported Musculoskeletal: other (RECENT AMPUTATION LEFT FOOT) Skin: other (RECENT AMPUTATION WITH SURGICAL SITE LEFT FOREFOOT) Psychiatric/Neurological: Anxiety, Depressed All Other Systems Reviewed Negative Unless Noted: Yes Physical Exam-General Problems Physical Exam Vital Signs Vital Signs - First Documented 05/28/18 11:50 Temp 98.4 Pulse 91 Resp 16 B/P (MAP) 126/81 (96) Pulse Ox 96 O2 Delivery Room Air Capillary Refill : General Appearance: WD/WN, no apparent distress Eyes: Bilateral Eye Normal Inspection, Bilateral Eye PERRL, Bilateral Eye EOMI HEENT: PERRL/EOMI, pharynx normal Neck: non-tender, supple, normal inspection Respiratory: chest non-tender, lungs clear, normal breath sounds, no respiratory distress, no accessory muscle use Cardiovascular: regular rate, rhythm Gastrointestinal: normal bowel sounds, non tender, soft, no organomegaly Rectal: deferred Back: no CVA tenderness, no vertebral tenderness Extremities: normal range of motion, non-tender, other (LEFT LEG IN IMMOBILIZING FOOT BRACE, DRESSING C/D/I ON FOOT OF LEFT) Neurologic/Psychiatric: traveling missionary II-XII nml as tested, no motor/sensory deficits, alert, normal mood/affect, oriented x 3 Skin: warm/dry Lymphatic: no adenopathy Assessment/Plan Assessment/Plan Admission Diagnosis/Plan MYOCARDIAL INFARCTION CORONARY ARTERY DISEASE STATUS POST STENTING OF LAD HYPERTENSION DIABETES MELLITUS HYPERLIPIDEMIA DEPRESSION LEFT FOOT DIABETIC ULCERATION NOW STATUS POST AMPUTATION 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 HYPERTENSION - CONTINUE WITH CURRENT MANAGEMENT. DIABETES MELLITUS - CONTINUE WITH SLIDING SCALE, STARTED LEVEMIR 10 UNITS AT HS , MONITOR FSBS CLOSELY WE ARE NOW IN CONTROL OF [facility] DIET AND THE LAST HOSPITALIZATION FOR UNCONTROLLED DIABETES HE DID NOT REQUIRE EVEN HALF OF HIS HOME DOSE OF INSULIN DUE TO HIS LACK OF RESTRICTION OF HIS DIETARY INTAKE WHEN AT HOME. HYPERLIPIDEMIA - CONTINUE WITH STATIN THERAPY. DEPRESSION - RESTART CYMBALTA. LEFT FOOT DIABETIC ULCERATION NOW STATUS POST AMPUTATION- CONTINUE WITH IV ANTIBIOTICS - MONITOR RENAL FUNCTION AND VANCOMYCIN LEVELS. PERIPHERAL NEUROPATHY - HOLD LYRICA AT THIS TIME, MONITOR SYMPTOMS. THANK YOU FOR CONSULT - I WILL FOLLOW PT WHILE HE IS IN THE HOSPITAL ON INPT REHAB. Admission Status: Inpatient Order (span 2 midnights) Reason for Inpatient Admission: INPT REHAB FOR IV ANTIBIOTICS STRENGTHENING Clinical Quality Measures DVT/VTE Risk/Contraindication: Risk Factor Score Per Nursin RFS Level Per Nursing on Admit: 4+=Very High ROSA MARIA PRADO MD May 29, 2018 08:40
--- NOTE | 2018-05-29 09:07 | PM & R (SOAP) Progress Note ---
Subjective This was a face to face visit with the patient. Date Seen by Provider: May 29, 2018 Time Seen by Provider: 07:50 Subjective/Events-last exam Patient was seen in his room this AM Case discussed with RN Patients midline not functioning Has been switched out by Team for continuation of IV antibiotics ,Patient adjusting well to unit Patient min assist for transfers Objective Physician Exam Last Set of Vital Signs Vital Signs Date Time Temp Pulse Resp B/P (MAP) Pulse Ox O2 Delivery O2 Flow Rate FiO2 05/29/18 06:00 98.4 65 16 106/65 (79) 94 Room Air Capillary Refill : I&O Intake and Output 05/29/18 00:00 Intake Total 1165 ml Balance 1165 ml Intake Oral 400 ml IV Total 765 ml # Voids 1 # Bowel Movements 1 Daily Weight Change No General: Alert, Oriented X3, Cooperative, No Acute Distress HEENT: Atraumatic, PERRLA, EOMI, Mucous Memb Moist/[place] Neck: Supple, No JVD Lungs: Clear to Auscultation Heart: Regular Rate Abdomen: Normal Bowel Sounds, Soft, No Tenderness Extremities: Other (and rt foot well healed with prior amputaion of all 5 toes) Neuro: Other (Strength 4+/6 BUES and 4/5 RLE left not tested due to boot and NWBstatus) Results Lab Data Laboratory Tests 05/28/18 16:00: Glucometer 200H 05/28/18 22:19: Glucometer 207H 05/29/18 02:32: Glucometer 175H 05/29/18 06:01: Glucometer 178H Assessment/Plan Assessment and Plan 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
--- NOTE | 2018-05-29 09:23 | PM&R Post Admission Assessment ---
Post Admission Physician Asses Date seen by provider: May 29, 2018 Time seen by provider: 08:00 The preadmission screen agrees with the post admission assessment that the patient is a good candidate for inpatient rehabilitation. The patient will have a comprehensive program of inpatient rehabilitation with a goal of maximizing level of functional independence prior to discharge home with spouse and HHC. The patient will have PT/OT ninety minutes per day, each discipline, five days a week for gait, strengthening, conditioning, balance, ADLs, any patient/family/caregiver training as necessary. Speech therapy to do cognitive assessment and treat as indicated. Rehabilitation nursing to assist with bowel, bladder, skin, wound care, medication administration, pain management. Librarian Head to assist with discharge planning, community reentry. SCD's for DVT prophylaxis. He appears to be well motivated to participate in three hours of therapy a day. He should be able to tolerate three hours of therapy a day from a medical and surgical standpoint. He should benefit from the three hours of therapy a day. He has a reasonable discharge plan, reasonable discharge rehabilitation goals and a supportive family. He has various comorbidities that need to be closely monitored with medications and treatments adjusted on a daily basis as needed. These include: CAD DM2 Wound on back Barriers to discharge for this patient who had been independent prior to this are for him to be modified independent to supervision for ADLs and mobility skills at the w/c level prior to discharge home with spouse and HHC, so as to lessen the burden of the caregivers. Risks for this patient include: 1. Fall 2. Fracture 3. DVT 4. Pulmonary embolism 5. Wound infection 6. Skin breakdown 7. Contractures 8. Poorly controlled pain 9. Urinary retention 10. UTI 11. Respiratory infection 12. Aspiration 13. Angina 14.poorly controlled DM Estimated Length of Stay: 10-14 days Prognosis: Rehab prognosis appears good for goal of discharge home with spouse and HHC modified independent to supervision for ADLs and mobility skills. [facility] code 03.3 Etiologic Diagnosis Disuse myopathy General: Alert, Oriented X3, Cooperative, No Acute Distress HEENT: Atraumatic, PERRLA, EOMI, Mucous Memb Moist/[place] Neck: Supple, No JVD Lungs: Clear to Auscultation Heart: Regular Rate Abdomen: Normal Bowel Sounds, Soft, No Tenderness Extremities: Other (and rt foot well healed with prior amputaion of all 5 toes) Neuro: Other (Strength 4+/6 BUES and 4/5 RLE left not tested due to boot and NWBstatus) MICHEL CHENG MD May 29, 2018 09:23
[2018-05-29] MEDS: TICAGRELOR 90 MG TABLET (BRILINTA) PO SCH ×2 (09:25→20:30)
[2018-05-29] MEDS: ASPIRIN E.C. 81 MG (ECOTRIN) TAB PO SCH (09:26)
[2018-05-29] MEDS: CARVEDILOL 6.25 MG (COREG) TAB PO SCH ×2 (09:26→20:31)
[2018-05-29] MEDS: CEFEPIME INJECTION 2,000 MG in NS (IVPB) 50 ML IV SCH ×2 (09:26→20:30)
--- NOTE | 2018-05-29 09:50 | Cardiology Progress Note ---
Cardiology SOAP Progress Note Subjective: No cardiac complaints. Objective: I&O/Vital Signs 05/29/18 06:00 Temp 98.4 Pulse 65 Resp 16 B/P (MAP) 106/65 (79) Pulse Ox 94 O2 Delivery Room Air 05/28/18 23:59 Intake Total 1165 ml Balance 1165 ml Weight (Pounds): 258 Weight (Ounces): 9.0 Weight (Calculated Kilograms): [id number] Constitutional: appears stated age, AAO x 3; No apparent distress; well- developed, well-nourished Respiratory: No accessory muscle use, No respiratory distress, No chest tender , No chest expansion is symmetric; chest is bilaterally symmetric; No lungs clear to percussion; lungs clear to auscultation; No crackles, No rhonchi, No rales, No stridor, No wheezing, No pleural rub, No other Cardiovascular: regular rate-rhythm; No irregularly irregular, No extra beats, No parasternal heave is noted, No JVD, No edema, No bradycardia, No tachycardia , No point of maximal impulse, No cardiac thrills are palpable; S1 and S2; No gallop/S3, No gallop/S4, No diastolic murmur, No systolic murmur, No friction rub, No click, No other Gastrointestional: No tender, No soft, No round, No distended, No pulsatile mass, No organomegaly, No guarding, No rebound, No tenderness, No hernia, No mass, No audible bowel sounds, No abnormal bowel sounds, No abdominal bruits, No spleenomegaly, No other Extremities: No normal range of motion, No non-tender, No normal inspection, No pedal edema, No calf tenderness, No normal capillary refill, No pelvis stable , No calf tenderness, No inflammation, No pedal edema, No slow capillary refill , No swelling, No other, No abrasion, No clubbing, No cyanosis, No ecchymosis, No laceration, No no lower extremity edema bilateral, No significant edema, No tenderness, No wound Neurologic/Psychiatric: no motor/sensory deficits, alert, normal mood/affect, oriented x 3, power is 5/5 both on sides Skin: No normal color, No warm/dry, No cyanosis, No cool, No diaphoresis, No damp, No ecchymosis, No jaundice, No mottled, No pallor, No rash, No tattoos/ piercings, No ulcerations, No rash on exposed areas, No ulcerations on exposed areas, No other Results/Procedures: Labs Laboratory Tests 05/28/18 16:00: Glucometer 200H 05/28/18 22:19: Glucometer 207H 05/29/18 02:32: Glucometer 175H 05/29/18 06:01: Glucometer 178H A/P: Assessment/Dx: Recent ACS, PCI to mid LAD and OM 2 with drug-eluting stents, Cardiomyopathy, Nonhealing ulcers left lower extremity, Diabetes Plan: Recent ACS, PCI to mid LAD and OM 2 with drug-eluting stents, dual antiplatelet therapy for at least 1 year. Statin, AZEB inhibitor and beta osmar. Cardiomyopathy, continue AZEB inhibitor and beta osmar. Nonhealing ulcers left lower extremity, PAD will be ruled out. I will recommend checking bilateral lower extremity arterial duplex. Diabetes, deferred to the primary team. Thank you for your consultation. Please call me if you have any questions. Casper Brennan MD, FACP, FACC, FSCAI, FHRS, CCDS Interventional Cardiology Cardiac Electrophysiology Vascular Medicine and Endovascular Interventions Chris BRENNAN MD May 29, 2018 9:50 am
[2018-05-29] MEDS: VANCOMYCIN 1500 MG/NS 500 ML IVPB IV SCH ×4 (10:39→18:29)
--- NOTE | 2018-05-29 10:51 | Physical Therapy Daily Note ---
PT Daily Note-Current Subjective Pt. initially stated he would not be able to have Rx b/c he was waiting on special nurses from surgery to come change his IV site. This MARINE MECHANIC suggesting we dont really know when they will come and that we could exercise etc until they arrive. Pt. then agreed to Rx.. States he is concerned about the IV in his left arm as it is apparently "no good" and they cant get blood in or out of it. Pt. c /o it is stiff and very sore to touch Pain Comment: pain only in left IV sight if touched, also uncomfortable to put weight arm Mental Status Patient Orientation: Normal For Age Attachments: Other-See Comments (boot left LE), IV Transfers Functional [place] Measure 0=Not Assessed/NA 4=Minimal Assistance 1=Total Assistance 5=Supervision or Setup 2=Maximal Assistance 6=Modified [place] 3=Moderate Assistance 7=Complete IndependenceIRFPAI Quality Coding Scale 6 Independent with activity with or without an assistive device 5 Patient requires set up or clean up by helper. Patient completes activity by themselves 4 Supervision or touching assist (CGA). [place] provide cues , steadying assist 3 The helper provides less than half the effort to complete the activity 2 The helper provides more than half the effort to complete the activity 1 Dependent. The helper does all the effort to complete an activity 7 Patient refused to complete or attempt activity 9 The patient did not perform the activity before the current illness or injury 88 Not attempted due to Medical conditions or safety concerns Transfers (B, C, W/C) (FIM): 5 Scootin Rollin Supine to/from Sit: 6 Sit to/from Stand: 6 Bed to/from Chair: 4 pt.needs instruction for safety and weight bearing status, pt. tends to put wt on LLE and not be in safe position for moving , educated and instructed multiple times, but still not always compliant Weight Bearing Right Lower Extremity: Right Full Weight Bearing Left Lower Extremity: Left Non Weight Bearing Gait Training Does the Patient Walk?: Yes Gait (FIM): 1 Distance (FIM): 1=up to 49 ft (5-10ftx3) Gait Level of Assist: 4 Gait Persons Needed: 1 Gait Assistive Device: FWW pt. with boot with very thick sole has much difficulty non wt bearing. attempt at use of scooter with pt. noted to have LOB with this MARINE MECHANIC and with OT, FWW used for TRFs and w/c training done this date to maintain NWB status Wheelchair Training Does the Pt Use a Wheelchair?: Yes Wheelchair (FIM): 4 Wheelchair Distance: 3=150 ft (x2) Wheelchair Level of Assist: 4 Type of Wheelchair: Manual pt. needed much education to use w/c, haphazard, educated in use of brakes, turns, revers, 360 turns as well as using RLE also, pts LLE up on elevated leg rest. Exercises Supine Ex: Bridging, Ankle pumps, Quad Set, Rolling, Glut sets, Heel Slides, Short Arc Quads, Scooting, Straight leg raise, Hip abd/add Supine Reps: 10 (x2) Treatments pt. did sidelying clam shells and hip abduction laying on right side exercising left LE. Pt. also performed prone exercise for glut sets and ham curls and hip extensions with knee bent x 15 ea Assessment Current Status: Good Progress pt. with no toes on RLE and decreased sensation in foot and LE as well as NWB on left, this leaving pt. with poor balance when attempting to use scooter. therefore w/c instruction was initiated this date. PT Gas Plant Operator Goals Intermediate Goals PT Intermediate Goals Time Frame: Jun 14, 2018 Transfers (B,C,W/C) (FIM): 6 Sit to Lying (QC): 6 Lying-Sitting on Side/Bed(QC): 6 Sit to Stand (QC): 6 Rollin Roll Left to Right (QC): 6 Chair/Eby-wv-Ckwve Xfer(QC): 6 Car Transfer (QC): 6 Does the Patient Walk: Yes Gait (FIM): 6 Gait distance (FIM): 3=150 ft Distance: 250' Walk 10 feet (QC): 6 Walk 10ft-Uneven Surface(QC): 6 Walk 50ft with 2 Turns (QC): 6 Walk 150 ft (QC): 6 Gait Level of Assist: 6 Gait Assistive Device: FWW (and knee scooter) Stairs (FIM): 2 # of Steps: 4 1 Step (curb) (QC): 5 4 Steps (QC): 5 12 Steps (QC): 88 Stairs Level Of Assist: 5 Picking up an Object (QC): 6 PT Plan Treatment/Plan Treatment Plan: Continue Plan of Care Treatment Plan: Bed Mobility, Education, Functional Activity Amy, Functional Strength, Group Therapy, Gait, Safety, Therapeutic Exercise, Transfers Treatment Duration: Jun 14, 2018 Frequency: At least 5 of 7 days/Wk (IRF) Estimated Hrs Per Day: 1.5 hours per day Patient and/or Family Agrees t: Yes Safety Risks/Education Patient Education: Gait Training, Transfer Techniques, Correct Positioning, W/ C Management, Disease Process, Safety Issues Teaching Recipient: Patient Teaching Methods: Demonstration, Discussion Response to Teaching: Verbalize Understanding, Return Demonstration, Reinforcement Needed Time/GCodes Time In: 800 Time Out: 930 Total Billed Treatment Time: 90 Total Billed Treatment 1,WC25m,FA30m,EX35m G Codes Necessary: No ELTON VALDES MARINE MECHANIC May 29, 2018 10:51
[2018-05-29] MEDS: DULoxetine 30 MG (CYMBALTA) CAP PO SCH (11:15)
--- NOTE | 2018-05-29 11:53 | Occupational Ther Daily Note ---
OT Current Status-Daily Note Subjective Pt seen in room, up in bed, agreeable to OT. Discomfort with some movements R shoulder due to old high school injury. Appearance Alert, cooperative Mental Status/Objective Functional [place] Measure 0=Not Assessed/NA 4=Minimal Assistance 1=Total Assistance 5=Supervision or Setup 2=Maximal Assistance 6=Modified [place] 3=Moderate Assistance 7=Complete [place] ADL-Treatment Functional [place] Measure 0=Not Assessed/NA 4=Minimal Assistance 1=Total Assistance 5=Supervision or Setup 2=Maximal Assistance 6=Modified [place] 3=Moderate Assistance 7=Complete IndependenceIRFPAI Quality Coding Scale 6 Independent with activity with or without an assistive device 5 Patient requires set up or clean up by helper. Patient completes activity by themselves 4 Supervision or touching assist (CGA). [place] provide cues , steadying assist 3 The helper provides less than half the effort to complete the activity 2 The helper provides more than half the effort to complete the activity 1 Dependent. The helper does all the effort to complete an activity 7 Patient refused to complete or attempt activity 9 The patient did not perform the activity before the current illness or injury 88 Not attempted due to Medical conditions or safety concerns Other Treatment Delays getting tx this am due to procedures and IVs. Pt got up from supine to sit EOB, sit to stand SBA and walked with CGA, FWW to recliner. Pt did 10-15 reps bilat UE exercise with red theraband and also bilat ex with exercise bar. Focus on not holding his breath, ROM, quality movements as well as strengthening. Pt educ on pacing himself for energy conservation as well. Pt left up in recliner, all needs met. Education OT Patient Education: Energy conservation, Exercise program, Purpose of tx/ functional activities Teaching Recipient: Patient Teaching Methods: Demonstration, Discussion Response to Teaching: Verbalize Understanding, Return Demonstration, Reinforcement Needed OT Short Term Goals Short Term Goals Time Frame: Jun 04, 2018 Toileting(FIM): 5 Toilet/Commode Transfer(FIM): 5 Additional Short Term Goals: 1-Demonstrate ADL Tasks, 2-Verbalize Understanding , 3-ImproveStrength/Amy 1=Demonstrate adherence to instructed precautions during ADL tasks. 2=Patient will verbalize/demonstrate understanding of assistive devices/ modifications for ADL. 3=Patient will improve strength/tolerance for activity to enable patient to perform ADL's. OT Commutator V Ring Assembler Goals Care Home Goals Time Frame: Jun 14, 2018 Eating (FIM): 7 Eating (QC): 6 Groomin Oral Hygiene (QC): 6 Bathing(FIM): 6 Shower/Bathe Self (QC): 6 Upper Body Dressing(FIM): 6 Upper Body Dressing (QC): 6 Lower Body Dressing(FIM): 6 Lower Body Dressing (QC): 6 On/Off Footwear (QC): 6 Toileting(FIM): 6 Toileting Hygiene (QC): 6 Toilet/Commode Transfer(FIM): 6 Toilet/Commode Transfer (QC): 6 Shower Transfer(FIM): 6 Additional Goals: 1-Demonstrate ADL Tasks, 2-Verbalize Understanding, 3- ImproveStrength/Amy 1=Demonstrate adherence to instructed precautions during ADL tasks. 2=Patient will verbalize/demonstrate understanding of assistive devices/ modifications for ADL. 3=Patient will improve strength/tolerance for activity to enable patient to perform ADL's. OT Education/Plan Problem List/Assessment Pt would benefit from skilled OT to increase his independence with basic self car to allow him to safely return to his home after surgery and time spent in ICU Discharge Recommendations Plan/Recommendations: Continue POC Treatment Plan/Plan of Care Patient would benefit from OT for education, treatment and training to promote independence in ADL's, mobility, safety and/or upper extremity function for ADL' s. Plan of Care: ADL Retraining, Functional Mobility, Group Exercise/Act as Ind ( education, exercise, activity tolerance, funct mobility), UE Funct Exercise/Act , UE Neuromus Re-Ed/Coord, OTHER (energy conservation educaiton) Treatment Duration: Jun 14, 2018 Frequency: At least 5 of 7 days/Wk (IRF) Estimated Hrs Per Day: 1.5 hours per day Agreement: Yes Rehab Potential: Good Time/GCodes Start Time: 11:00 Stop Time: 11:30 Total Time Billed (hr/min): 30 Billed Treatment Time visit, 30 minutes exercise JOANN RAUSCH OT May 29, 2018 11:53
--- NOTE | 2018-05-29 13:10 | Diagnostic Imaging Report ---
PROCEDURE: US Bilateral lower extremity arterial. TECHNIQUE: Multiple real-time grayscale images are obtained through both lower extremity arterial systems with color Doppler imaging and color Doppler spectral analysis. INDICATION: Lower extremity ulcers, leg pain. FINDINGS: The previous bilateral lower extremity arterial Doppler exam of 02/13/2012 noted atherosclerotic disease involving the arterial systems of both lower legs but failed to show any sign of a hemodynamically significant stenosis. On this exam, there is no abrupt alteration of the velocities to suggest a hemodynamically significant stenosis. Furthermore, triphasic and biphasic waveforms are seen at most of the levels although the waveform in the dorsalis pedis artery does seem dampened. The arteries of the lower leg near the ankle and foot could not be evaluated due to the patient's external dressings. IMPRESSION: 1. There is still no evidence for a hemodynamically significant stenosis of either lower extremity. 2. If clinical concern regarding an underlying abnormality persists, then CTA of the aorta with bilateral runoffs will be recommended. Dictated by: Dictated on workstation # [id number]
--- NOTE | 2018-05-29 13:41 | Occupational Ther Daily Note ---
OT Current Status-Daily Note Subjective Pt seen in room, up in recliner, agreeable to OT. No pain mentioned. Appearance Alert, cooperative Mental Status/Objective Functional [place] Measure 0=Not Assessed/NA 4=Minimal Assistance 1=Total Assistance 5=Supervision or Setup 2=Maximal Assistance 6=Modified [place] 3=Moderate Assistance 7=Complete [place] ADL-Treatment IV site and CAM boot/lower leg covered with plastic for shower. Pt got up from recliner and walked with CGA, FWW to bathroom. Cues to not put walker too far out in front of him. Stood with close SBA, FWW at toilet to urinate. Walked CGA , FWW to shower and transferred into shower/onto shower bench with SBA, using grab bars. Pt washed and dried all parts except back, seated, using hand held shower. Donned shirt with setup. Walked to recliner and donned underwear/shorts with setup and SBA for standing to pull them up. Also donned sock/shoe with setup. Pt is not to take CAM boot off. Stood at sink with close SBA, FWW to brush teeth,comb hair. Cues for pt to not put weight on L leg while standing and for walker placement. Pt left up in recliner, all needs met. Functional [place] Measure 0=Not Assessed/NA 4=Minimal Assistance 1=Total Assistance 5=Supervision or Setup 2=Maximal Assistance 6=Modified [place] 3=Moderate Assistance 7=Complete IndependenceIRFPAI Quality Coding Scale 6 Independent with activity with or without an assistive device 5 Patient requires set up or clean up by helper. Patient completes activity by themselves 4 Supervision or touching assist (CGA). [place] provide cues , steadying assist 3 The helper provides less than half the effort to complete the activity 2 The helper provides more than half the effort to complete the activity 1 Dependent. The helper does all the effort to complete an activity 7 Patient refused to complete or attempt activity 9 The patient did not perform the activity before the current illness or injury 88 Not attempted due to Medical conditions or safety concerns Grooming (FIM): 5 (SBA to brush teeth, comb hair. Washed face and hands in shower) Oral Hygiene (QC): 4 Bathing (FIM): 5 (Washed and dried all parts except back, setup. Shower bench, grab bar, hand held shower) Shower/Bathe Self (QC): 5 Upper Body (FIM): 5 (Setup to don t shirt) Upper Body Dressing (QC): 5 Lower Body Dressing (FIM): 5 (SBA when standing to pull pants up. pt educ modified techniques, FWW) Lower Body Dressing (QC): 4 (SBA) On/Off Footwear (QC): 5 (setup) Toileting (FIM): 5 (Close SBA to stand at toilet and manage clothing, grab bar , FWW) Toileting Hygiene (QC): 4 (SBA) Shower Transfer(FIM): 5 (Close SBA, shower bench, grab bar, FWW. Pt educ technique) Education OT Patient Education: Modified ADL techniques, Progress toward Goal/Update tx plan, Purpose of tx/functional activities, Safety issues, Transfer techniques Teaching Recipient: Patient Teaching Methods: Discussion Response to Teaching: Verbalize Understanding, Return Demonstration, Reinforcement Needed OT Short Term Goals Short Term Goals Time Frame: Jun 04, 2018 Toileting(FIM): 5 Toilet/Commode Transfer(FIM): 5 Additional Short Term Goals: 1-Demonstrate ADL Tasks, 2-Verbalize Understanding , 3-ImproveStrength/Amy 1=Demonstrate adherence to instructed precautions during ADL tasks. 2=Patient will verbalize/demonstrate understanding of assistive devices/ modifications for ADL. 3=Patient will improve strength/tolerance for activity to enable patient to perform ADL's. OT Supervisor Type Bar And Segment Goals Supervisor Type Bar And Segment Goals Time Frame: Jun 14, 2018 Eating (FIM): 7 Eating (QC): 6 Groomin Oral Hygiene (QC): 6 Bathing(FIM): 6 Shower/Bathe Self (QC): 6 Upper Body Dressing(FIM): 6 Upper Body Dressing (QC): 6 Lower Body Dressing(FIM): 6 Lower Body Dressing (QC): 6 On/Off Footwear (QC): 6 Toileting(FIM): 6 Toileting Hygiene (QC): 6 Toilet/Commode Transfer(FIM): 6 Toilet/Commode Transfer (QC): 6 Shower Transfer(FIM): 6 Additional Goals: 1-Demonstrate ADL Tasks, 2-Verbalize Understanding, 3- ImproveStrength/Amy 1=Demonstrate adherence to instructed precautions during ADL tasks. 2=Patient will verbalize/demonstrate understanding of assistive devices/ modifications for ADL. 3=Patient will improve strength/tolerance for activity to enable patient to perform ADL's. OT Education/Plan Problem List/Assessment Pt would benefit from skilled OT to increase his independence with basic self car to allow him to safely return to his home after surgery and time spent in ICU Discharge Recommendations Plan/Recommendations: Continue POC Treatment Plan/Plan of Care Patient would benefit from OT for education, treatment and training to promote independence in ADL's, mobility, safety and/or upper extremity function for ADL' s. Plan of Care: ADL Retraining, Functional Mobility, Group Exercise/Act as Ind ( education, exercise, activity tolerance, funct mobility), UE Funct Exercise/Act , UE Neuromus Re-Ed/Coord, OTHER (energy conservation educaiton) Treatment Duration: Jun 14, 2018 Frequency: At least 5 of 7 days/Wk (IRF) Estimated Hrs Per Day: 1.5 hours per day Agreement: Yes Rehab Potential: Good Time/GCodes Start Time: 12:30 Stop Time: 13:30 Total Time Billed (hr/min): 60 Billed Treatment Time visit, 60 minutes ADL JOANN RAUSCH OT May 29, 2018 13:41
--- NOTE | 2018-05-29 17:31 | Individualized Plan of Care ---
Individualized Plan of Care Rehab Nursing IPOC Order Admission Date May 28, 2018 at 11:50 Current Orders Orders Admission Order(Inpt,Obs,Sdc) (05/28/18 11:49) Vital Signs: Routine (Order) 08,16,00 (05/28/18 11:49) Bike Technician-Inpt Rehab Con (05/28/18 11:49) Rehab Nursing Orders-Ipoc (05/28/18 11:49) Physical Therapy Rehab Orders (05/28/18 11:49) Occupational Therapy Rehab Ord (05/28/18 11:49) Speech Therapy Rehab Orders (05/28/18 11:49) Turn And Reposition Q2HR (05/28/18 11:49) Intake & Output 06,14,22 (05/28/18 11:49) Weight Bearing Status (05/28/18 11:49) Weekly Weight (Lbs) WEEK (05/28/18 11:49) Code/Resuscitation (05/28/18 11:49) Initiate Admission Nursing Pro .admission (05/28/18 11:49) Accucheck Achs ACHS (05/28/18 11:55) Consult Physician (05/28/18 11:55) Consult Physician (05/28/18 11:57) Cho 60g/M 1snack (16-2000 Rustam) (05/28/18 Lunch) Aspirin Enteric Coated Tablet (Ecotrin T (05/29/18 09:00) Carvedilol Tablet (Coreg Tablet) (05/28/18 21:00) Cefepime Injection (Maxipime Injection) (05/28/18 12:19) Metronidazole 500mg/100ml Ivpb (Flagyl 5 (05/28/18 14:00) Ticagrelor Tablet (Brilinta Tablet) (05/28/18 21:00) Pharmacy Communication (Pharmacy Communi (05/28/18 12:00) Admission Arrival Bed Request (05/28/18 12:06) Atorvastatin Tablet (Lipitor Tablet) (05/28/18 21:00) Sodium Chloride Flush (Catheter Flush Sy (05/28/18 14:00) Sodium Chloride Flush (Catheter Flush Sy (05/28/18 12:30) Cefepime Injection (Maxipime Injection) (05/28/18 21:00) Vancomycin Injection (Vancomycin Injecti (05/28/18 18:00) Trough Order (Trough Order-Pharmacy Orde (05/30/18 05:00) Vancomycin,Trough (05/30/18 05:00) Ambulate TID (05/28/18 14:01) Sequential Compression Device 08,20 (05/28/18 14:01) Dvt/Vte Risk - Notifiy Physici 08 (05/28/18 14:01) Patient Visit (05/28/18 ) Speech Sound Lang Comp (05/28/18 ) Patient Visit (05/28/18 ) Pt Eval Moderate Complexity (05/28/18 ) Exercise Therap, Ea 15 Min (05/28/18 ) Functional Activities, Ea 15 (05/28/18 ) Consult Physician (05/28/18 15:37) Diabetes Education (05/28/18 17:44) Insulin Aspart (Novolog) (Novolog (Charg (05/28/18 21:00) Acetaminophen Tablet/Caplet (Tylenol T (05/28/18 18:30) Advanced Wound Care Dressing O Q48H (05/28/18 18:40) Clonazepam Tablet (Klonopin Tablet) (05/28/18 21:15) Clonazepam Tablet (Klonopin Tablet) (05/28/18 21:53) Picc Line Evaluation .on order (05/29/18 07:58) Cbc No Diff (05/30/18 05:00) Comprehensive Metabolic Panel (05/30/18 05:00) Chest Pa/Lat (2 View) (05/30/18 06:00) Duloxetine Capsule (Cymbalta Capsule) (05/29/18 09:30) Insulin Determir (Per Unit) (Levemir (Pe (05/29/18 21:00) Us Adelso Lower Ext [id number] (05/29/18 09:50) Amb Us Guide Vascular Access (05/29/18 ) Patient Visit (05/29/18 ) Wheelchair Mgmt/Propulsn 15min (05/29/18 ) Functional Activities, Ea 15 (05/29/18 ) Exercise Therap, Ea 15 Min (05/29/18 ) Rehab Nursing Orders: Ongoing Assess. of Cognitive Status, Ongoing Assess. of Function Status, Disease Management & Educaiton, DVT Prophylaxis, Fall Prevention, Fluid/Electrolyte/Nutrition Mgmt, Infection Prevention, Medication Management & Education, Management of Risks & Complications, Management of Skin Intergrity, Nutrition Management, Pain Management, Patient/Family Support Other Nursing Orders: Monitor for postop urinary retention and constipation PT IPOC Problem List: Activity Tolerance, Functional Strength, Safety, Gait Treatment Plan: Continue Plan of Care Bed Mobility, Education, Functional Activity Amy, Functional Strength, Group Therapy, Gait, Safety, Therapeutic Exercise, Transfers Treatment Duration: Jun 14, 2018 Frequency: At least 5 of 7 days/Wk (IRF) Estimated Hrs Per Day: 1.5 hours per day OT IPOC Problems: Decreased Activ Tolerance, Decreased UE Strength, Dependent Transfers , Impaired Funct Balance, Impaired Self-Care Skills OT Treatment, Training and Edu: Yes OT Problems Pt would benefit from skilled OT to increase his independence with basic self car to allow him to safely return to his home after surgery and time spent in ICU Plan of Care: ADL Retraining, Functional Mobility, Group Exercise/Act as Ind ( education, exercise, activity tolerance, funct mobility), UE Funct Exercise/Act , UE Neuromus Re-Ed/Coord, OTHER (energy conservation educaiton) Treatment Duration: Jun 14, 2018 Frequency: At least 5 of 7 days/Wk (IRF) Estimated Hrs Per Day: 1.[address] IPOC Speech Therapy Treatment Plan: Discontinue ST Treatment Duration: May 29, 2018 Frequency: Modified Program (IRF) (ST not indicated) Estimated Hrs Per Day: Other (0) Bike Technician/Case Mgmt Bike Technician/Case Managemen: Discharge Planning, Patient/Family Counseling Dietitian/Radiology Clerk Dietitian/Radiology Clerk to monitor nutritional status and make changes and/or recommendations as needed and work with speech pathology on dietary upgrades as the occur. Physician IPOC Medical Issues being managed closely and that require the 24 hour availability of a physician: DM CAD Depression C code 03.3 Etiologic DX Disuse myopathy Medical Issues: Bowel/Bladder Function, DVT Prophylaxis, Falls Precautions, Fluid/Electrolyte/Nutrition Balance, Infection Protection, Pain Management, Weight Bearing Precautions, Wound Care, Other (List) (as per above) Brief Synthesis of Preadmission Screen, Post-Admission Evaluation, and Therapy Evaluations: 57 yo male who developed sepsis as a result of infected diaaaabetic foot ulcer This was treated at OSH and then Amputaion of left toes were done to eradicate source of infection Now left foot in boot and NWB LLE PMH DM and prior amputations of rt toes with good healing Patient had been Modifiec Independent prior to this DR Ha PCP DR Linn wound care Patient also had Stenting for CAD while at OSH and Cardiology following patient here as well Patient ahs a supportive spouse who works at this facility Medical Prognosis: Good Anticipated Length of Stay: 06-07-18 Modified Independent to supervision for adls and mobility skills at the w/c level Anticipated d/c Destination: Home with spouse and [facility] MICHEL CHENG MD May 29, 2018 17:31
[2018-05-29 17:50] VITALS: BP 106/70
[2018-05-29] MEDS: ATORVASTATIN 80 MG (LIPITOR) TABLET PO SCH (20:31)
[2018-05-29] MEDS: inSUlin DETERMIR 1 UNIT/0.01 ML (LEVEMIR) CHARGE PER UNIT SQ SCH (20:35)
[2018-05-29] MEDS: ACETAMINOPHEN 325 MG TABLET PO PRN (21:20)
[2018-05-29] MEDS ORDERED: clonazePAM 1 MG (KlonoPIN) TAB ONE (22:08)
[2018-05-29] MEDS ORDERED: clonazePAM 1 MG (KlonoPIN) TAB PO PRN (22:15)
[2018-05-30] MEDS ORDERED: TROUGH ORDER-PHARMACY XX NR (05:00)
[2018-05-30] MEDS: metroNIDAZOLE 500MG/100ML IVPB 100 ML IV SCH ×3 (05:01→21:50)
[2018-05-30 05:15] LABS: HEMOGLOBIN 9.7 G/DL (13.3-17.7); MEAN PLATELET VOLUME 10.5 FL (7.4-10.4); RED BLOOD COUNT 3.19 10^6/uL (4.35-5.85); RED CELL DISTRIBUTION WIDTH 12.8 % (10.0-14.5); WHITE BLOOD COUNT 5.9 10^3/uL (4.3-11.0)
[2018-05-30 05:34] LABS: ALANINE AMINOTRANSFERASE 19 U/L (0-55); ALBUMIN 2.7 GM/DL (3.2-4.5); ALKALINE PHOSPHATASE 68 U/L (40-136); BILIRUBIN,TOTAL 0.8 MG/DL (0.1-1.0); BUN/CREATININE RATIO 19; CALCIUM 7.9 MG/DL (8.5-10.1); CARBON DIOXIDE 25 MMOL/L (21-32); CHLORIDE 106 MMOL/L (98-107); GFR ESTIMATED > 60; GLUCOSE 200 MG/DL (70-105); POTASSIUM 3.7 MMOL/L (3.6-5.0); SODIUM 137 MMOL/L (135-145); TOTAL PROTEIN 5.9 GM/DL (6.4-8.2)
[2018-05-30 05:40] VITALS: BP 108/70
[2018-05-30 05:40] LABS: VANCOMYCIN,TROUGH 20.3 UG/ML (10.0-20.0)
[2018-05-30] MEDS: VANCOMYCIN 1500 MG/NS 500 ML IVPB IV SCH ×2 (06:00)
[2018-05-30] MEDS: CATHETER FLUSH 10 ML SYR IV SCH ×3 (06:02→21:50)
[2018-05-30] MEDS: inSUlin ASPART (NovoLOG) 1 UNIT/0.01 ML (CHARGE PER UNIT) SC SCH ×4 (07:00→21:04)
[2018-05-30] MEDS ORDERED: ONDANSETRON 4 MG/2 ML (SDV) Z0FRAN ONE (07:20)
[2018-05-30] MEDS ORDERED: ONDANSETRON 4 MG/2 ML (SDV) Z0FRAN IVP PRN (07:30)
--- NOTE | 2018-05-30 08:07 | PM & R (SOAP) Progress Note ---
Subjective This was a face to face visit with the patient. Date Seen by Provider: May 30, 2018 Time Seen by Provider: 07:35 Subjective/Events-last exam Patient was seen in his room this AM Patient c/o nausea this Am and Pain Left thigh Has bruising and mild tenderness left medial thigh from procedure at OSH.Patient SBA for transfers Review of Systems Gastrointestinal: Nausea Musculoskeletal: leg pain Objective Physician Exam Last Set of Vital Signs Vital Signs Date Time Temp Pulse Resp B/P (MAP) Pulse Ox O2 Delivery O2 Flow Rate FiO2 05/30/18 05:40 97.0 94 18 108/70 (83) 98 Room Air Capillary Refill : I&O Intake and Output 05/30/18 00:00 Intake Total 2014 ml Balance 2014 ml Intake Oral 1300 ml IV Total 715 ml # Voids 5 General: Alert, Oriented X3, Cooperative, No Acute Distress HEENT: Atraumatic, PERRLA, EOMI, Mucous Memb Moist/[place] Neck: Supple, No JVD Lungs: Clear to Auscultation Heart: Regular Rate Abdomen: Normal Bowel Sounds, Soft, No Tenderness Extremities: Other (and rt foot well healed with prior amputaion of all 5 toes) Neuro: Other (Strength 4+/6 BUES and 4/5 RLE left not tested due to boot and NWBstatus) Results Lab Data Laboratory Tests 05/28/18 16:00: Glucometer 200H 05/28/18 22:19: Glucometer 207H 05/29/18 02:32: Glucometer 175H 05/29/18 06:01: Glucometer 178H 05/29/18 10:57: Glucometer 209H 05/29/18 15:46: Glucometer 201H 05/29/18 20:05: Glucometer 206H 05/30/18 05:00: White Blood Count 5.9, Red Blood Count 3.19L, Hemoglobin 9.7L, Hematocrit 29L, Mean Corpuscular Volume 89, Mean Corpuscular Hemoglobin 30, Mean Corpuscular Hemoglobin Concent 34, Red Cell Distribution Width 12.8, Platelet Count 281, Mean Platelet Volume 10.5H, Sodium Level 137, Potassium Level 3.7, Chloride Level 106, Carbon Dioxide Level 25, Anion Gap 6, Blood Urea Nitrogen 17, Creatinine 0.90, Estimat Glomerular Filtration Rate > 60, BUN/Creatinine Ratio 19, Glucose Level 200H, Calcium Level 7.9L, Total Bilirubin 0.8, Aspartate Amino Transf (AST/SGOT) 19, Alanine Aminotransferase (ALT/SGPT) 19, Alkaline Phosphatase 68, Total Protein 5.9L, Albumin 2.7L, Vancomycin Level Trough 20.3H Assessment/Plan Assessment and Plan Disuse myopathy s/p sepsis due to infected diabetic left foot ulcer s/p Amputation at OSH DM Prior amputations rt toes Nausea multifactorial Multivessel CAD s/p Stent OSH Depression on meds Insomnia-patient requested Klonopin last evening 10 more days of IV antibiotics Plan Continue PT/OT Zofran for nausea F/U with PCP PRN see Orders DR lester covering my service from 06-02-18 til 06-07-18 Co-Morbidities that are continuing to impact the rehab process: (include details ) MICHEL CHENG MD May 30, 2018 08:07
--- NOTE | 2018-05-30 09:43 | Occupational Ther Daily Note ---
OT Current Status-Daily Note Subjective Pt seen in room, up in recliner, reluctantly agreeable to OT. "I just don't feel good today. I've already thrown up once." Appearance Alert, participative Mental Status/Objective Functional [place] Measure 0=Not Assessed/NA 4=Minimal Assistance 1=Total Assistance 5=Supervision or Setup 2=Maximal Assistance 6=Modified [place] 3=Moderate Assistance 7=Complete [place] ADL-Treatment Vitals checked by nursing and WNL. Pt got up from recliner with SBA and walked with close SBA, FWW to w/c. Pt educ walker placement prior to sitting. Pt propelled himself to gym, per w/c and locked brakes appropriately. He did 12 minutes bilat UE exercise on arm bike set at 15W resistance, working at a steady pace and taking a recovery break at midpoint. He also did graded clothes pins and peg activity with 1# weight on each arm. To strengthen arms for standing during ADLs but also to work on increasing activity tolerance after cardiac procedures. He did not become SOB during activities. He propelled himself back to his room and positioned w/c at sink to brush teeth, comb hair, shave. He was able to do them with setup, seated (modified technique). He is used to doing them in standing but it is difficult to stand for that length of time and not put weight on L UE. Pt left up in bathroom, nursing notified. Functional [place] Measure 0=Not Assessed/NA 4=Minimal Assistance 1=Total Assistance 5=Supervision or Setup 2=Maximal Assistance 6=Modified [place] 3=Moderate Assistance 7=Complete IndependenceIRFPAI Quality Coding Scale 6 Independent with activity with or without an assistive device 5 Patient requires set up or clean up by helper. Patient completes activity by themselves 4 Supervision or touching assist (CGA). [place] provide cues , steadying assist 3 The helper provides less than half the effort to complete the activity 2 The helper provides more than half the effort to complete the activity 1 Dependent. The helper does all the effort to complete an activity 7 Patient refused to complete or attempt activity 9 The patient did not perform the activity before the current illness or injury 88 Not attempted due to Medical conditions or safety concerns Grooming (FIM): 5 (setup) Education OT Patient Education: Modified ADL techniques, Purpose of tx/functional activities, Safety issues, Transfer techniques Teaching Recipient: Patient Teaching Methods: Discussion Response to Teaching: Verbalize Understanding OT Short Term Goals Short Term Goals Time Frame: Jun 04, 2018 Toileting(FIM): 5 Toilet/Commode Transfer(FIM): 5 Additional Short Term Goals: 1-Demonstrate ADL Tasks, 2-Verbalize Understanding , 3-ImproveStrength/Amy 1=Demonstrate adherence to instructed precautions during ADL tasks. 2=Patient will verbalize/demonstrate understanding of assistive devices/ modifications for ADL. 3=Patient will improve strength/tolerance for activity to enable patient to perform ADL's. OT Prison Goals Functional Analyst Goals Time Frame: Jun 14, 2018 Eating (FIM): 7 Eating (QC): 6 Groomin Oral Hygiene (QC): 6 Bathing(FIM): 6 Shower/Bathe Self (QC): 6 Upper Body Dressing(FIM): 6 Upper Body Dressing (QC): 6 Lower Body Dressing(FIM): 6 Lower Body Dressing (QC): 6 On/Off Footwear (QC): 6 Toileting(FIM): 6 Toileting Hygiene (QC): 6 Toilet/Commode Transfer(FIM): 6 Toilet/Commode Transfer (QC): 6 Shower Transfer(FIM): 6 Additional Goals: 1-Demonstrate ADL Tasks, 2-Verbalize Understanding, 3- ImproveStrength/Amy 1=Demonstrate adherence to instructed precautions during ADL tasks. 2=Patient will verbalize/demonstrate understanding of assistive devices/ modifications for ADL. 3=Patient will improve strength/tolerance for activity to enable patient to perform ADL's. OT Education/Plan Problem List/Assessment Pt would benefit from skilled OT to increase his independence with basic self car to allow him to safely return to his home after surgery and time spent in ICU Discharge Recommendations Plan/Recommendations: Continue POC Treatment Plan/Plan of Care Patient would benefit from OT for education, treatment and training to promote independence in ADL's, mobility, safety and/or upper extremity function for ADL' s. Plan of Care: ADL Retraining, Functional Mobility, Group Exercise/Act as Ind ( education, exercise, activity tolerance, funct mobility), UE Funct Exercise/Act , UE Neuromus Re-Ed/Coord, OTHER (energy conservation educaiton) Treatment Duration: Jun 14, 2018 Frequency: At least 5 of 7 days/Wk (IRF) Estimated Hrs Per Day: 1.5 hours per day Agreement: Yes Rehab Potential: Good Time/GCodes Start Time: 08:30 Stop Time: 09:30 Total Time Billed (hr/min): 60 Billed Treatment Time visit, 45 minutes exercise, 15 minutes ADL JOANN RAUSCH OT May 30, 2018 09:43
[2018-05-30] MEDS: CARVEDILOL 6.25 MG (COREG) TAB PO SCH ×2 (10:17→21:12)
[2018-05-30] MEDS: CEFEPIME INJECTION 2,000 MG in NS (IVPB) 50 ML IV SCH ×2 (10:17→21:12)
[2018-05-30] MEDS: TICAGRELOR 90 MG TABLET (BRILINTA) PO SCH ×2 (10:17→21:12)
[2018-05-30] MEDS: DULoxetine 30 MG (CYMBALTA) CAP PO SCH (10:18)
[2018-05-30] MEDS: ASPIRIN E.C. 81 MG (ECOTRIN) TAB PO SCH (10:18)
--- NOTE | 2018-05-30 10:25 | Diagnostic Imaging Report ---
Indication: Sepsis. Comparison made with prior examination from 05/16/2018. Findings: Heart size is normal. There is some right basilar atelectasis and/or pneumonitis. There is no pleural effusion or pneumothorax. The mediastinum is unremarkable. Impression: Minimal right basilar atelectasis and/or pneumonitis. Dictated by: Dictated on workstation # [id number]
--- NOTE | 2018-05-30 11:44 | Physical Therapy Daily Note ---
PT Daily Note-Current Transfers Functional [place] Measure 0=Not Assessed/NA 4=Minimal Assistance 1=Total Assistance 5=Supervision or Setup 2=Maximal Assistance 6=Modified [place] 3=Moderate Assistance 7=Complete IndependenceIRFPAI Quality Coding Scale 6 Independent with activity with or without an assistive device 5 Patient requires set up or clean up by helper. Patient completes activity by themselves 4 Supervision or touching assist (CGA). [place] provide cues , steadying assist 3 The helper provides less than half the effort to complete the activity 2 The helper provides more than half the effort to complete the activity 1 Dependent. The helper does all the effort to complete an activity 7 Patient refused to complete or attempt activity 9 The patient did not perform the activity before the current illness or injury 88 Not attempted due to Medical conditions or safety concerns Transfers (B, C, W/C) (FIM): 6 Supine to/from Sit: 6 Sit to/from Stand: 6 Bed to/from Chair: 5 Needs frequent cues to maintain non wt bearing status. Weight Bearing Right Lower Extremity: Right Full Weight Bearing Left Lower Extremity: Left Non Weight Bearing Gait Training Gait (FIM): 2 Distance (FIM): 6=320-55 ft Distance: 100 Gait Level of Assist: 5 Gait Persons Needed: 1 Gait Assistive Device: FWW needs frequent cues to remain NWB on the left foot. Most steps are at a TTWB status. Wheelchair Training Wheelchair (FIM): 5 Distance: 150 Type of Wheelchair: Manual Exercises Supine Ex: Bridging, Rolling, Glut sets, Lower trunk rotation, Heel Slides, Short Arc Quads, Straight leg raise, Hip abd/add Seated Therapy Exercises: Long arc quads Assessment Current Status: Fair Progress Pt's mobility is improving. Continues to struggle with NWB on left foot. He will benefit from continued therapy. PT Longterm Goals Medical Research Scientist Goals PT Medical Research Scientist Goals Time Frame: Jun 14, 2018 Transfers (B,C,W/C) (FIM): 6 Sit to Lying (QC): 6 Lying-Sitting on Side/Bed(QC): 6 Sit to Stand (QC): 6 Rollin Roll Left to Right (QC): 6 Chair/[id number] Xfer(QC): 6 Car Transfer (QC): 6 Does the Patient Walk: Yes Gait (FIM): 6 Gait distance (FIM): 3=150 ft Distance: 250' Walk 10 feet (QC): 6 Walk 10ft-Uneven Surface(QC): 6 Walk 50ft with 2 Turns (QC): 6 Walk 150 ft (QC): 6 Gait Level of Assist: 6 Gait Assistive Device: FWW (and knee scooter) Stairs (FIM): 2 # of Steps: 4 1 Step (curb) (QC): 5 4 Steps (QC): 5 12 Steps (QC): 88 Stairs Level Of Assist: 5 Picking up an Object (QC): 6 PT Plan Treatment/Plan Treatment Plan: Continue Plan of Care Treatment Plan: Bed Mobility, Education, Functional Activity Amy, Functional Strength, Group Therapy, Gait, Safety, Therapeutic Exercise, Transfers Treatment Duration: Jun 14, 2018 Frequency: At least 5 of 7 days/Wk (IRF) Estimated Hrs Per Day: 1.5 hours per day Patient and/or Family Agrees t: Yes Time/GCodes Time In: 1040 Time Out: 1120 Total Billed Treatment Time: 60 Total Billed Treatment visit, ex 30min, FA 15, gt 15 SHE CARL PT May 30, 2018 11:44
[2018-05-30] MEDS ORDERED: CEFE2PIG IV (14:35)
[2018-05-30] MEDS ORDERED: VANC1.2514 IV (14:35)
[2018-05-30] MEDS ORDERED: METR500P4 IV (14:35)
--- NOTE | 2018-05-30 14:46 | Occupational Ther Daily Note ---
OT Current Status-Daily Note Subjective Pt seen in room, up in recliner, agreeable to OT. Pt stated that he would like to go home tomorrow when his gets off work. No pain mentioned except uncomfortable R shoulder with some exercise. Appearance Alert, cooperative Mental Status/Objective Functional [place] Measure 0=Not Assessed/NA 4=Minimal Assistance 1=Total Assistance 5=Supervision or Setup 2=Maximal Assistance 6=Modified [place] 3=Moderate Assistance 7=Complete [place] Attachments: Other-See Comments (Gilberto barnardot Carlita) ADL-Treatment Functional [place] Measure 0=Not Assessed/NA 4=Minimal Assistance 1=Total Assistance 5=Supervision or Setup 2=Maximal Assistance 6=Modified [place] 3=Moderate Assistance 7=Complete IndependenceIRFPAI Quality Coding Scale 6 Independent with activity with or without an assistive device 5 Patient requires set up or clean up by helper. Patient completes activity by themselves 4 Supervision or touching assist (CGA). [place] provide cues , steadying assist 3 The helper provides less than half the effort to complete the activity 2 The helper provides more than half the effort to complete the activity 1 Dependent. The helper does all the effort to complete an activity 7 Patient refused to complete or attempt activity 9 The patient did not perform the activity before the current illness or injury 88 Not attempted due to Medical conditions or safety concerns Other Treatment Pt got up from recliner without help. Able to get L foot onto leg scooter without help and said that he thought he did a better job maintaining his weightbearing status when he used leg scooter. Walked to gym, using leg scooter. Locked it appropriately to sit in chair with arms, with cue to reach back before sitting. Pt did 15 reps shoulder and 20 reps elbow, forearm and wrist exercise with 2# weight, with education on each exercise. Some of the exercises bothered his R shoulder so he either modified them or did fewer reps. Also did 15-20 reps bilat UE exercise with exercise bar and 2# weight, all to strengthen arms for safe transfers and for standing during ADLs. Care transferred to PT. Education OT Patient Education: Exercise program, Purpose of tx/functional activities Teaching Recipient: Patient Teaching Methods: Demonstration, Discussion Response to Teaching: Verbalize Understanding, Return Demonstration OT Short Term Goals Short Term Goals Time Frame: Jun 04, 2018 Toileting(FIM): 5 Toilet/Commode Transfer(FIM): 5 Additional Short Term Goals: 1-Demonstrate ADL Tasks, 2-Verbalize Understanding , 3-ImproveStrength/Amy 1=Demonstrate adherence to instructed precautions during ADL tasks. 2=Patient will verbalize/demonstrate understanding of assistive devices/ modifications for ADL. 3=Patient will improve strength/tolerance for activity to enable patient to perform ADL's. OT Adjunct Trainer Goals Adjunct Trainer Goals Time Frame: Jun 14, 2018 Eating (FIM): 7 Eating (QC): 6 Groomin Oral Hygiene (QC): 6 Bathing(FIM): 6 Shower/Bathe Self (QC): 6 Upper Body Dressing(FIM): 6 Upper Body Dressing (QC): 6 Lower Body Dressing(FIM): 6 Lower Body Dressing (QC): 6 On/Off Footwear (QC): 6 Toileting(FIM): 6 Toileting Hygiene (QC): 6 Toilet/Commode Transfer(FIM): 6 Toilet/Commode Transfer (QC): 6 Shower Transfer(FIM): 6 Additional Goals: 1-Demonstrate ADL Tasks, 2-Verbalize Understanding, 3- ImproveStrength/Amy 1=Demonstrate adherence to instructed precautions during ADL tasks. 2=Patient will verbalize/demonstrate understanding of assistive devices/ modifications for ADL. 3=Patient will improve strength/tolerance for activity to enable patient to perform ADL's. OT Education/Plan Problem List/Assessment Pt would benefit from skilled OT to increase his independence with basic self car to allow him to safely return to his home after surgery and time spent in ICU Discharge Recommendations Plan/Recommendations: Continue POC Treatment Plan/Plan of Care Patient would benefit from OT for education, treatment and training to promote independence in ADL's, mobility, safety and/or upper extremity function for ADL' s. Plan of Care: ADL Retraining, Functional Mobility, Group Exercise/Act as Ind ( education, exercise, activity tolerance, funct mobility), UE Funct Exercise/Act , UE Neuromus Re-Ed/Coord, OTHER (energy conservation educaiton) Treatment Duration: Jun 14, 2018 Frequency: At least 5 of 7 days/Wk (IRF) Estimated Hrs Per Day: 1.5 hours per day Agreement: Yes Rehab Potential: Good Time/GCodes Start Time: 13:00 Stop Time: 13:30 Total Time Billed (hr/min): 30 Billed Treatment Time visit, 30 minutes exercise JOANN RAUSCH OT May 30, 2018 14:46
--- NOTE | 2018-05-30 14:56 | Physical Therapy Daily Note ---
PT Daily Note-Current Subjective Patient agrees to PT. No c/o. Pain Numeric Pain Scale: 3 Location: Left Location Body Site: Hip Pain Description: Burning Mental Status Patient Orientation: Normal For Age Transfers Functional [place] Measure 0=Not Assessed/NA 4=Minimal Assistance 1=Total Assistance 5=Supervision or Setup 2=Maximal Assistance 6=Modified [place] 3=Moderate Assistance 7=Complete IndependenceIRFPAI Quality Coding Scale 6 Independent with activity with or without an assistive device 5 Patient requires set up or clean up by helper. Patient completes activity by themselves 4 Supervision or touching assist (CGA). [place] provide cues , steadying assist 3 The helper provides less than half the effort to complete the activity 2 The helper provides more than half the effort to complete the activity 1 Dependent. The helper does all the effort to complete an activity 7 Patient refused to complete or attempt activity 9 The patient did not perform the activity before the current illness or injury 88 Not attempted due to Medical conditions or safety concerns Transfers (B, C, W/C) (FIM): 6 Scootin Rollin Roll Left to Right (QC): 6 Supine to/from Sit: 6 Sit to/from Stand: 6 Sit to Lying (QC): 6 Sit to Stand (QC): 6 Chair/Fpi-fo-Hqjii Xfer(QC): 6 Bed to/from Chair: 6 Car Transfer (QC): 6 Weight Bearing Right Lower Extremity: Right Full Weight Bearing Left Lower Extremity: Left Non Weight Bearing Gait Training Does the Patient Walk?: Yes Gait (FIM): 6 Distance (FIM): 3=150 ft Distance: >400' x 4 Walk 10 feet (QC): 6 Walk 50 ft with 2 Turns(QC): 6 Walk 150 ft (QC): 6 Walking 10ft/uneven surface-QC: 6 Gait Level of Assist: 6 knee scooter inside and outside on all terrains and up and down ramp Assessment Patient progressing quickly with treatment plan and will dismiss to home tomorrow with family. PT Short Term Goals Short Term Goals Wheelchair Distance: 150 PT Halfway Goals Cotton Stripper Goals PT Halfway Goals Time Frame: Jun 14, 2018 Transfers (B,C,W/C) (FIM): 6 Sit to Lying (QC): 6 Lying-Sitting on Side/Bed(QC): 6 Sit to Stand (QC): 6 Rollin Roll Left to Right (QC): 6 Chair/Zhi-af-Iucpr Xfer(QC): 6 Car Transfer (QC): 6 Does the Patient Walk: Yes Gait (FIM): 6 Gait distance (FIM): 3=150 ft Distance: 250' Walk 10 feet (QC): 6 Walk 10ft-Uneven Surface(QC): 6 Walk 50ft with 2 Turns (QC): 6 Walk 150 ft (QC): 6 Gait Level of Assist: 6 Gait Assistive Device: FWW (and knee scooter) Stairs (FIM): 2 # of Steps: 4 1 Step (curb) (QC): 5 4 Steps (QC): 5 12 Steps (QC): 88 Stairs Level Of Assist: 5 Picking up an Object (QC): 6 PT Plan Treatment/Plan Treatment Plan: Continue Plan of Care Treatment Plan: Bed Mobility, Education, Functional Activity Amy, Functional Strength, Group Therapy, Gait, Safety, Therapeutic Exercise, Transfers Treatment Duration: Jun 14, 2018 Frequency: At least 5 of 7 days/Wk (IRF) Estimated Hrs Per Day: 1.5 hours per day Patient and/or Family Agrees t: Yes Time/GCodes Time In: 1330 Time Out: 1400 Total Billed Treatment Time: 30 Total Billed Treatment 1 visit FA x 2 30 min MORAIMA PETTY PT May 30, 2018 14:56
[2018-05-30 16:05] VITALS: BP 116/72
--- NOTE | 2018-05-30 17:20 | Cardiology Progress Note ---
Cardiology SOAP Progress Note Subjective: No cardiac complaints. Objective: I&O/Vital Signs 05/30/18 05/30/18 05/30/18 05:40 09:00 16:05 Temp 97.0 98.0 Pulse 94 88 Resp 18 16 B/P (MAP) 108/70 (83) 116/72 (87) Pulse Ox 98 97 O2 Delivery Room Air Room Air 05/29/18 23:59 Intake Total 1515 ml Balance 1515 ml Weight (Pounds): 258 Weight (Ounces): 9.0 Weight (Calculated Kilograms): 117.588640 Constitutional: appears stated age, AAO x 3; No apparent distress; well- developed, well-nourished Respiratory: No accessory muscle use, No respiratory distress, No chest tender , No chest expansion is symmetric; chest is bilaterally symmetric; No lungs clear to percussion; lungs clear to auscultation; No crackles, No rhonchi, No rales, No stridor, No wheezing, No pleural rub, No other Cardiovascular: regular rate-rhythm; No irregularly irregular, No extra beats, No parasternal heave is noted, No JVD, No edema, No bradycardia, No tachycardia , No point of maximal impulse, No cardiac thrills are palpable; S1 and S2; No gallop/S3, No gallop/S4, No diastolic murmur, No systolic murmur, No friction rub, No click, No other Gastrointestional: No tender, No soft, No round, No distended, No pulsatile mass, No organomegaly, No guarding, No rebound, No tenderness, No hernia, No mass, No audible bowel sounds, No abnormal bowel sounds, No abdominal bruits, No spleenomegaly, No other Extremities: No normal range of motion, No non-tender, No normal inspection, No pedal edema, No calf tenderness, No normal capillary refill, No pelvis stable , No calf tenderness, No inflammation, No pedal edema, No slow capillary refill , No swelling, No other, No abrasion, No clubbing, No cyanosis, No ecchymosis, No laceration, No no lower extremity edema bilateral, No significant edema, No tenderness, No wound Neurologic/Psychiatric: no motor/sensory deficits, alert, normal mood/affect, oriented x 3, power is 5/5 both on sides Skin: No normal color, No warm/dry, No cyanosis, No cool, No diaphoresis, No damp, No ecchymosis, No jaundice, No mottled, No pallor, No rash, No tattoos/ piercings, No ulcerations, No rash on exposed areas, No ulcerations on exposed areas, No other Results/Procedures: Labs Laboratory Tests 05/29/18 20:05: Glucometer 206H 05/30/18 05:00: White Blood Count 5.9, Red Blood Count 3.19L, Hemoglobin 9.7L, Hematocrit 29L, Mean Corpuscular Volume 89, Mean Corpuscular Hemoglobin 30, Mean Corpuscular Hemoglobin Concent 34, Red Cell Distribution Width 12.8, Platelet Count 281, Mean Platelet Volume 10.5H, Sodium Level 137, Potassium Level 3.7, Chloride Level 106, Carbon Dioxide Level 25, Anion Gap 6, Blood Urea Nitrogen 17, Creatinine 0.90, Estimat Glomerular Filtration Rate > 60, BUN/Creatinine Ratio 19, Glucose Level 200H, Calcium Level 7.9L, Total Bilirubin 0.8, Aspartate Amino Transf (AST/SGOT) 19, Alanine Aminotransferase (ALT/SGPT) 19, Alkaline Phosphatase 68, Total Protein 5.9L, Albumin 2.7L, Vancomycin Level Trough 20.3H 05/30/18 11:56: Glucometer 176H 05/30/18 16:02: Glucometer 191H A/P: Assessment/Dx: Recent ACS, PCI to mid LAD and OM 2 with drug-eluting stents, Cardiomyopathy, Nonhealing ulcers left lower extremity, Diabetes Plan: Recent ACS, PCI to mid LAD and OM 2 with drug-eluting stents, dual antiplatelet therapy for at least 1 year. Statin, AZEB inhibitor and beta osmar. Cardiomyopathy, continue AZEB inhibitor and beta osmar. Nonhealing ulcers left lower extremity, PAD will be ruled out. I will recommend checking bilateral lower extremity arterial duplex. Diabetes, deferred to the primary team. Thank you for your consultation. Please call me if you have any questions. Casper Brennan MD, FACP, FACC, FSCAI, FHRS, CCDS Interventional Cardiology Cardiac Electrophysiology Vascular Medicine and Endovascular Interventions Chris BRENNAN MD May 30, 2018 5:20 pm
[2018-05-30] MEDS: VANCOMYCIN 1250 MG/NS 250 ML IVPB IV SCH ×2 (17:30)
[2018-05-30] MEDS ORDERED: clonazePAM 1 MG (KlonoPIN) TAB PO PRN (20:00)
[2018-05-30] MEDS: ATORVASTATIN 80 MG (LIPITOR) TABLET PO SCH (21:12)
[2018-05-30] MEDS: inSUlin DETERMIR 1 UNIT/0.01 ML (LEVEMIR) CHARGE PER UNIT SQ SCH (21:12)
[2018-05-30] MEDS: ACETAMINOPHEN 325 MG TABLET PO PRN (21:50)
[2018-05-31 06:00] VITALS: BP 109/73
[2018-05-31] MEDS: CATHETER FLUSH 10 ML SYR IV SCH ×2 (06:04→13:38)
[2018-05-31] MEDS: metroNIDAZOLE 500MG/100ML IVPB 100 ML IV SCH ×2 (06:05→13:25)
[2018-05-31] MEDS: inSUlin ASPART (NovoLOG) 1 UNIT/0.01 ML (CHARGE PER UNIT) SC SCH ×3 (06:09→17:38)
[2018-05-31] MEDS: VANCOMYCIN 1250 MG/NS 250 ML IVPB IV SCH ×4 (06:59→17:54)
[2018-05-31 09:15] VITALS: BP 114/69
[2018-05-31] MEDS: TICAGRELOR 90 MG TABLET (BRILINTA) PO SCH (09:21)
[2018-05-31] MEDS: ASPIRIN E.C. 81 MG (ECOTRIN) TAB PO SCH (09:21)
[2018-05-31] MEDS: DULoxetine 30 MG (CYMBALTA) CAP PO SCH (09:21)
[2018-05-31] MEDS: CARVEDILOL 6.25 MG (COREG) TAB PO SCH (09:21)
[2018-05-31] MEDS: CEFEPIME INJECTION 2,000 MG in NS (IVPB) 50 ML IV SCH ×2 (09:22→18:16)
--- NOTE | 2018-05-31 10:37 | Progress Note ---
Subjective Date Seen by Provider: May 31, 2018 Time Seen by Provider: 10:30 Subjective/Events-last exam pt is a 57 y/o male who is known to me from clinic. Jarett is going home to continue with iv antibiotics as an outpatient. He states that he is going to go to diabetic education classes with his . Review of Systems General: Fatigue HEENT: No Head Aches Pulmonary: No Dyspnea, No Cough Cardiovascular: No: Chest Pain Gastrointestinal: No: Nausea, Abdominal Pain Genitourinary: No Dysuria Neurological: Weakness; No: Confusion Objective Exam Last Set of Vital Signs Vital Signs Date Time Temp Pulse Resp B/P (MAP) Pulse Ox O2 Delivery O2 Flow Rate FiO2 05/31/18 09:15 98.4 90 18 114/69 (84) 98 Room Air Capillary Refill : I&O Intake and Output 05/31/18 00:00 Intake Total 1310 ml Balance 1310 ml Intake Oral 1050 ml IV Total 260 ml # Voids 6 General: Alert, Oriented X3, Cooperative, No Acute Distress HEENT: Atraumatic, PERRLA, EOMI, Mucous Memb Moist/[place] Neck: Supple, No JVD Lungs: Clear to Auscultation Heart: Regular Rate Abdomen: Normal Bowel Sounds, Soft, No Tenderness Extremities: Other (and rt foot well healed with prior amputaion of all 5 toes) Neuro: Other (Strength 4+/6 BUES and 4/5 RLE left not tested due to boot and NWBstatus) Results Lab Laboratory Tests 05/30/18 11:56: Glucometer 176H 05/30/18 16:02: Glucometer 191H 05/30/18 20:52: Glucometer 184H 05/31/18 06:09: Glucometer 195H Assessment/Plan Assessment/Plan Assess & Plan/Chief Complaint MYOCARDIAL INFARCTION CORONARY ARTERY DISEASE STATUS POST STENTING OF LAD HYPERTENSION DIABETES MELLITUS HYPERLIPIDEMIA DEPRESSION LEFT FOOT DIABETIC ULCERATION NOW STATUS POST AMPUTATION PERIPHERAL NEUROPATHY MYOCARDIAL INFARCTION WITH CORONARY ARTERY DISEASE AND STATUS POST STENTING OF LAD - WAITING ON REPORT FROM [facility] - PT IS ON BRILINTA, STATIN, BETA TRISHA THERAPY - CONTINUE CURRENT MANAGEMENT. HYPERTENSION - CONTINUE WITH CURRENT MANAGEMENT. DIABETES MELLITUS - PT TO CONTINUE WITH HOME REGIMEN OF TOUJEO AND MEALTIME INSULIN. HYPERLIPIDEMIA - CONTINUE WITH STATIN THERAPY. DEPRESSION - RESTART CYMBALTA. LEFT FOOT DIABETIC ULCERATION NOW STATUS POST AMPUTATION- CONTINUE WITH IV ANTIBIOTICS - MONITOR RENAL FUNCTION AND VANCOMYCIN LEVELS. PERIPHERAL NEUROPATHY - RESTART LYRICA AT THIS TIME, MONITOR SYMPTOMS. THANK YOU FOR CONSULT - I WILL FOLLOW PT WHILE HE IS IN THE HOSPITAL ON INPT REHAB. Clinical Quality Measures DVT/VTE Risk/Contraindication: Risk Factor Score Per Nursin RFS Level Per Nursing on Admit: 4+=Very High ROSA MARIA PRADO MD May 31, 2018 10:37
[2018-05-31] MEDS ORDERED: TICA90TA PO (10:42)
[2018-05-31] MEDS ORDERED: ATOR80TA76 PO (10:42)
[2018-05-31] MEDS ORDERED: ASPI-983 PO (10:42)
[2018-05-31] MEDS ORDERED: CARV6.252 PO (10:42)
[2018-05-31] MEDS ORDERED: INSU100V16 SQ (10:42)
--- NOTE | 2018-05-31 10:46 | Occupational Ther Daily Note ---
OT Current Status-Daily Note Subjective Pt seen in room, up on scooter, agreeable to OT. No pain mentioned except in L thigh. Appearance Alert, cooperative Mental Status/Objective Functional [place] Measure 0=Not Assessed/NA 4=Minimal Assistance 1=Total Assistance 5=Supervision or Setup 2=Maximal Assistance 6=Modified [place] 3=Moderate Assistance 7=Complete [place] ADL-Treatment Pt walked into bathroom using knee scooter and positioned it for toilet transfer. Able to manage clothing and hygiene - balanced with grab bar to wipe. Pt attempted to "furniture walk" to shower which would not have been compliant with WB restrictions. Suggested to pt that he may want to use FWW in bathroom at home if there is not space to safely maneuver scooter. He used knee scooter to walk to shower and was able to get in/out of shower without help. Bathed mod I and washed/dried all parts except back. Used knee scooter to transfer to tall toilet for dressing. Groomed at sink using knee scooter. Pt returned to recliner to put sock and shoe on. He reported some bloody drainage from R foot and nursing looked at it. Pt walked with knee scooter to shower room and was shown how to use transfer tub bench since he has a tub/shower in his bathroom at home. He practiced transfer dry run and is considering it for home. Information provided to pt on where to purchase it. Pt returned to room, up in recliner, all needs met. Able to open food packages, cut up food, feed himself, get a drink without help and at normal speed. Functional [place] Measure 0=Not Assessed/NA 4=Minimal Assistance 1=Total Assistance 5=Supervision or Setup 2=Maximal Assistance 6=Modified [place] 3=Moderate Assistance 7=Complete IndependenceIRFPAI Quality Coding Scale 6 Independent with activity with or without an assistive device 5 Patient requires set up or clean up by helper. Patient completes activity by themselves 4 Supervision or touching assist (CGA). [place] provide cues , steadying assist 3 The helper provides less than half the effort to complete the activity 2 The helper provides more than half the effort to complete the activity 1 Dependent. The helper does all the effort to complete an activity 7 Patient refused to complete or attempt activity 9 The patient did not perform the activity before the current illness or injury 88 Not attempted due to Medical conditions or safety concerns Eating (FIM): 7 (Able to order food, open packages, cut up food, feed himself, get a drink without help and at normal speed) Eating (QC): 6 Grooming (FIM): 6 (Stood at sink, using knee scooter for balance. ABle to brush teeth, comb hair. Chose not to shave. Washed face and hand in shower) Oral Hygiene (QC): 6 Bathing (FIM): 6 (Washed and dried all parts except back. Turned water on and off and retrieved towel from bar. Shower bench, grab bars, hand held shower) Shower/Bathe Self (QC): 6 Upper Body (FIM): 6 (Doffed and donned clothing. Retrieved clean clothes) Upper Body Dressing (QC): 6 Lower Body Dressing (FIM): 6 (Doffed and donned pants and underwear, R shoe and sock, extra time, modified technique. Is not supposed to remove CAM boot on L foot. Grab bar or scooter for balance.) Lower Body Dressing (QC): 6 On/Off Footwear (QC): 6 Toileting (FIM): 6 (On/off tall toilet, using grab bar for balance and for standing for hygiene. ) Toileting Hygiene (QC): 6 Toilet/Commode Transfer (FIM): 6 (On/off tall toilet, using grab bar and scooter handle for balance.) Toilet Transfer (QC): 6 Shower Transfer(FIM): 6 (In/out of shower and on/off shower bench, using grab bar and scooter handle for balance. ) Education OT Patient Education: Modified ADL techniques, Progress toward Goal/Update tx plan, Purpose of tx/functional activities, Safety issues, Transfer techniques, Use of adapted equipment Teaching Recipient: Patient Teaching Methods: Discussion Response to Teaching: Verbalize Understanding, Return Demonstration OT Short Term Goals Short Term Goals Time Frame: Jun 04, 2018 Toileting(FIM): 5 Toilet/Commode Transfer(FIM): 5 Additional Short Term Goals: 1-Demonstrate ADL Tasks, 2-Verbalize Understanding , 3-ImproveStrength/Amy 1=Demonstrate adherence to instructed precautions during ADL tasks. 2=Patient will verbalize/demonstrate understanding of assistive devices/ modifications for ADL. 3=Patient will improve strength/tolerance for activity to enable patient to perform ADL's. OT Long-Term Goals Long-Term Goals Time Frame: Jun 14, 2018 Eating (FIM): 7 (met 05-31-18) Eating (QC): 6 (met 05-31-18) Groomin (met 05-31-18) Oral Hygiene (QC): 6 (met 05-31-18) Bathing(FIM): 6 (met 05-31-18) Shower/Bathe Self (QC): 6 (met 05-31-18) Upper Body Dressing(FIM): 6 (met 05-31-18) Upper Body Dressing (QC): 6 (met 05-31-18) Lower Body Dressing(FIM): 6 (met 05-31-18) Lower Body Dressing (QC): 6 (met 05-31-18) On/Off Footwear (QC): 6 (met 05-31-18) Toileting(FIM): 6 (met 05-31-18) Toileting Hygiene (QC): 6 (met 05-31-18) Toilet/Commode Transfer(FIM): 6 (met 05-31-18) Toilet/Commode Transfer (QC): 6 (met 05-31-18) Shower Transfer(FIM): 6 (met 05-31-18) Additional Goals: 1-Demonstrate ADL Tasks, 2-Verbalize Understanding, 3- ImproveStrength/Amy 1=Demonstrate adherence to instructed precautions during ADL tasks. 2=Patient will verbalize/demonstrate understanding of assistive devices/ modifications for ADL. 3=Patient will improve strength/tolerance for activity to enable patient to perform ADL's. OT Education/Plan Problem List/Assessment Pt would benefit from skilled OT to increase his independence with basic self car to allow him to safely return to his home after surgery and time spent in ICU Discharge Recommendations Plan/Recommendations: Discharge/Goals Met (anticipate DC later today) Treatment Plan/Plan of Care Patient would benefit from OT for education, treatment and training to promote independence in ADL's, mobility, safety and/or upper extremity function for ADL' s. Plan of Care: ADL Retraining, Functional Mobility, Group Exercise/Act as Ind ( education, exercise, activity tolerance, funct mobility), UE Funct Exercise/Act , UE Neuromus Re-Ed/Coord, OTHER (energy conservation educaiton) Treatment Duration: Jun 14, 2018 Frequency: At least 5 of 7 days/Wk (IRF) Estimated Hrs Per Day: 1.5 hours per day Agreement: Yes Rehab Potential: Good Time/GCodes Start Time: 08:30 Stop Time: 09:35 Total Time Billed (hr/min): 65 Billed Treatment Time visit, 65 minutes ADL JOANN RAUSCH OT May 31, 2018 10:46
[2018-05-31] MEDS ORDERED: METR500T21 PO (10:50)
--- NOTE | 2018-05-31 10:52 | Discharge Inst-Complex ---
PDI Med Rec & Follow Up Appt. New Medications: Cefepime HCl/D5w (Cefepime-Dextrose 2 gm/50 ml) 2 Gm/50 Ml Piggyback 2 GM IV BID for 6 Days, ML LAST DOSE DUE ON 06/07/18 Insulin Aspart (Novolog) 100 Unit/1 Ml Susp 10 UNIT SQ AC, #2 VIAL Metronidazole (Metronidazole) 500 Mg Tablet 500 MG PO TID, #14 TAB Metronidazole/Sodium Chloride (Metronidazole 500 mg/100 ml) 500 Mg/100 Ml Piggyback 500 MG IV Q8HR for 6 Days, ML LAST DOSE DUE ON 06/07/18 Vancomycin HCl in Dextrose 5 % (Vancomycin 1.25 Gram/250Ml-D5w) 1.25 Gm/250 Ml Plast..bag 1.25 GM IV BID for 6 Days, ML LAST DOSE DUE ON 06/07/18 Aspirin (Aspirin EC) 81 Mg Tablet.dr 81 MG PO DAILY, #100 TAB 3 Refills Atorvastatin Calcium (Atorvastatin Calcium) 80 Mg Tablet 80 MG PO HS, #30 TAB 6 Refills Carvedilol (Carvedilol) 6.25 Mg Tablet 6.25 MG PO BID, #30 TAB 6 Refills Ticagrelor (Brilinta) 90 Mg Tablet 90 MG PO BID, #30 TAB 6 Refills Continued Medications: Clonazepam (Clonazepam) 1 Mg Tablet 2 MG PO HS TAKES 2 (1 MG) TABLETS Duloxetine HCl (Duloxetine HCl) 30 Mg Capsule.dr 30 MG PO DAILY, CAP Insulin Glargine,Hum.rec.anlog ([place] Solostar) 300 Unit/1 Ml Insuln.pen 50 UNIT SQ DAILY, EA Pregabalin (Lyrica) 50 Mg Capsule 50 MG PO DAILY, CAP Discontinued Medications: Meloxicam (Meloxicam) 15 Mg Tablet 15 MG PO DAILY, TAB Prescription: RX on Chart Patient Instructions: we are determining if he can take the flagyl orally versus IV - a phone call has been placed to the [facility] for clarification on the flagyl. the nurse at [facility] rehab will tell Jarett if he can do the flagyl (metronidazole) orally and then he will not have to come back to the hospital three times a day for the flagyl. Activity, Diet and PDI Resume Normal Activity: Yes Discharge Diet: ADA Diet Symptoms to Reoprt to : Appetite Changes, Fever Over 101 Degrees F, Pain/ Pressure in Chest, Cough Up/Vomit Blood, Pain/Pressure in Jaw, Diarrhea( Persistant), Shortness of Breath For Problems or Questions: Contact Your Physician, Go to Emergency Room Infection Signs and Symptoms: Increased Redness, Foul Odor of Wound, Increased Swelling, Temperature Above 101 F ROSA MARIA PRADO MD May 31, 2018 10:52
[2018-05-31] MEDS: ACETAMINOPHEN 325 MG TABLET PO PRN ×2 (10:53→17:32)
--- NOTE | 2018-05-31 10:53 | Progress Note ---
Subjective Date Seen by Provider: May 31, 2018 Time Seen by Provider: 11:26 Subjective/Events-last exam DUPLICATE NOTE Objective Exam Last Set of Vital Signs Vital Signs Date Time Temp Pulse Resp B/P (MAP) Pulse Ox O2 Delivery O2 Flow Rate FiO2 05/31/18 09:15 98.4 90 18 114/69 (84) 98 Room Air Capillary Refill : I&O Intake and Output 05/31/18 00:00 Intake Total 1310 ml Balance 1310 ml Intake Oral 1050 ml IV Total 260 ml # Voids 6 General: Alert, Oriented X3, Cooperative, No Acute Distress HEENT: Atraumatic, PERRLA, EOMI, Mucous Memb Moist/[place] Neck: Supple, No JVD Lungs: Clear to Auscultation Heart: Regular Rate Abdomen: Normal Bowel Sounds, Soft, No Tenderness Extremities: Other (and rt foot well healed with prior amputaion of all 5 toes) Neuro: Other (Strength 4+/6 BUES and 4/5 RLE left not tested due to boot and NWBstatus) Results Lab Laboratory Tests 05/30/18 11:56: Glucometer 176H 05/30/18 16:02: Glucometer 191H 05/30/18 20:52: Glucometer 184H 05/31/18 06:09: Glucometer 195H Assessment/Plan Assessment/Plan Assess & Plan/Chief Complaint DUPLICATE NOTE Clinical Quality Measures DVT/VTE Risk/Contraindication: Risk Factor Score Per Nursin RFS Level Per Nursing on Admit: 4+=Very High ROSA MARIA PRADO MD May 31, 2018 10:53
--- NOTE | 2018-05-31 11:50 | Physical Therapy Daily Note ---
PT Daily Note-Current Subjective Patient is very motivated to return to home on this date. Agrees to PT. Pain Numeric Pain Scale: 5-Moderate Pain Location: Left Location Body Site: Hip Pain Description: Ache Mental Status Patient Orientation: Normal For Age Transfers Functional [place] Measure 0=Not Assessed/NA 4=Minimal Assistance 1=Total Assistance 5=Supervision or Setup 2=Maximal Assistance 6=Modified [place] 3=Moderate Assistance 7=Complete IndependenceIRFPAI Quality Coding Scale 6 Independent with activity with or without an assistive device 5 Patient requires set up or clean up by helper. Patient completes activity by themselves 4 Supervision or touching assist (CGA). [place] provide cues , steadying assist 3 The helper provides less than half the effort to complete the activity 2 The helper provides more than half the effort to complete the activity 1 Dependent. The helper does all the effort to complete an activity 7 Patient refused to complete or attempt activity 9 The patient did not perform the activity before the current illness or injury 88 Not attempted due to Medical conditions or safety concerns Transfers (B, C, W/C) (FIM): 6 Scootin Rollin Roll Left to Right (QC): 6 Supine to/from Sit: 6 Sit to/from Stand: 6 Sit to Lying (QC): 6 Sit to Stand (QC): 6 Chair/Ulx-yc-Ekmvf Xfer(QC): 6 Bed to/from Chair: 6 Car Transfer (QC): 6 Weight Bearing Right Lower Extremity: Right Full Weight Bearing Left Lower Extremity: Left Non Weight Bearing Gait Training Does the Patient Walk?: Yes Gait (FIM): 6 Distance (FIM): 3=150 ft Distance: >300' x 4 Walk 10 feet (QC): 6 Walk 50 ft with 2 Turns(QC): 6 Walk 150 ft (QC): 6 Walking 10ft/uneven surface-QC: 6 Gait Level of Assist: 6 knee scooter use on all terrains/up and down ramp with knee scooter without difficulty (family has ramp placement at home) Balance Picking up an Object (QC): 6 Assessment Patient seen by skilled PT to address functional strength and mobility to ensure safe return to home with family at maximum LOF. Patient is currently at modified independent LOF with all gross motor skills safely and ambulates with knee scooter on all terrains without difficulty. Patient's family have installed a ramp for use at home, therefore, step goals not attained. All other goals attained and, from a PT standpoint, patient is safe to return to home on this date. PT Short Term Goals Short Term Goals Wheelchair Distance: 150 PT Forest Examiner Goals Alf Goals PT Alf Goals Time Frame: Jun 14, 2018 Transfers (B,C,W/C) (FIM): 6 (met 05/31/18) Sit to Lying (QC): 6 (met 05/31/18) Lying-Sitting on Side/Bed(QC): 6 (met 05/31/18) Sit to Stand (QC): 6 (met 05/2718) Rollin (met 05/31/18) Roll Left to Right (QC): 6 (met 05/31/18) Chair/Nhm-gr-Rwgdx Xfer(QC): 6 (met 05/31/18) Car Transfer (QC): 6 (met 05/31/18) Does the Patient Walk: Yes Gait (FIM): 6 (met 05/31/18) Gait distance (FIM): 3=150 ft Distance: 250' Walk 10 feet (QC): 6 (met 05/31/18) Walk 10ft-Uneven Surface(QC): 6 (met 05/31/18) Walk 50ft with 2 Turns (QC): 6 (met 05/31/18) Walk 150 ft (QC): 6 (met 05/31/18) Gait Level of Assist: 6 (met 05/31/18) Gait Assistive Device: FWW (and knee scooter) Stairs (FIM): 2 # of Steps: 4 1 Step (curb) (QC): 5 4 Steps (QC): 5 12 Steps (QC): 88 Stairs Level Of Assist: 5 Picking up an Object (QC): 6 (met 05/31/18) PT Plan Treatment/Plan Treatment Plan: Discontinue PT Treatment Plan: Bed Mobility, Education, Functional Activity Amy, Functional Strength, Group Therapy, Gait, Safety, Therapeutic Exercise, Transfers Treatment Duration: Jun 14, 2018 Frequency: At least 5 of 7 days/Wk (IRF) Estimated Hrs Per Day: 1.5 hours per day Patient and/or Family Agrees t: Yes Time/GCodes Time In: 1112 Time Out: 1142 Total Billed Treatment Time: 30 Total Billed Treatment 1 visit FA x 2 30 min MORAIMA PETTY PT May 31, 2018 11:50
--- NOTE | 2018-05-31 11:51 | Therapy Team Discharge Summary ---
Therapy Discharge Summary Discharge Recommendations Date of Discharge Therapy D/C Recommendations: Home w/ Family Support Physical Therapy Patient seen by skilled PT to address functional strength and mobility to ensure safe return to home with family at maximum LOF. Patient is currently at modified independent LOF with all gross motor skills safely and ambulates with knee scooter on all terrains without difficulty. Patient's family have installed a ramp for use at home, therefore, step goals not attained. All other goals attained and, from a PT standpoint, patient is safe to return to home on this date. Occupational Therapy Decreased Activ Tolerance, Decreased UE Strength, Dependent Transfers, Impaired Funct Balance, Impaired Self-Care Skills PT Senior Living Goals Aircraft Shipping Checker Goals PT Senior Living Goals Time Frame: Jun 14, 2018 Transfers (B,C,W/C) (FIM): 6 (met 05/31/18) Roll Left to Right (QC): 6 (met 05/31/18) Sit to Lying (QC): 6 (met 05/31/18) Lying-Sitting on Side/Bed(QC): 6 (met 05/31/18) Sit to Stand (QC): 6 (met 05/2718) Chair/Ozt-ri-Badyd Xfer(QC): 6 (met 05/31/18) Car Transfer (QC): 6 (met 05/31/18) Does the Patient Walk: Yes Gait (FIM): 6 (met 05/31/18) Gait distance (FIM): 3=150 ft Distance: 250' Walk 10 feet (QC): 6 (met 05/31/18) Walk 10ft-Uneven Surface(QC): 6 (met 05/31/18) Walk 50ft with 2 Turns (QC): 6 (met 05/31/18) Walk 150 ft (QC): 6 (met 05/31/18) Gait Level of Assist: 6 (met 05/31/18) Gait Assistive Device: FWW (and knee scooter) Stairs (FIM): 2 # of Steps: 4 1 Step (curb) (QC): 5 4 Steps (QC): 5 12 Steps (QC): 88 Stairs Level Of Assist: 5 Picking up an Object (QC): 6 (met 05/31/18) OT Aircraft Shipping Checker Goals Aircraft Shipping Checker Goals Time Frame: Jun 14, 2018 Eating (FIM): 7 (met 05-31-18) Eating (QC): 6 (met 05-31-18) Oral Hygiene (QC): 6 (met 05-31-18) Grooming(FIM): 6 (met 05-31-18) Bathing(FIM): 6 (met 05-31-18) Shower/Bathe Self (QC): 6 (met 05-31-18) Upper Body Dressing(FIM): 6 (met 05-31-18) Upper Body Dressing (QC): 6 (met 05-31-18) Lower Body Dressing(FIM): 6 (met 05-31-18) Lower Body Dressing (QC): 6 (met 05-31-18) On/Off Footwear (QC): 6 (met 05-31-18) Toileting(FIM): 6 (met 05-31-18) Toileting Hygiene (QC): 6 (met 05-31-18) Toilet/Commode Transfer(FIM): 6 (met 05-31-18) Toilet/Commode Transfer (QC): 6 (met 05-31-18) Shower Transfer(FIM): 6 (met 05-31-18) Additional Goals: 1-Demonstrate ADL Tasks, 2-Verbalize Understanding, 3- ImproveStrength/Amy 1=Demonstrate adherence to instructed precautions during ADL tasks. 2=Patient will verbalize/demonstrate understanding of assistive devices/ modifications for ADL. 3=Patient will improve strength/tolerance for activity to enable patient to perform ADL's. Speech Senior Living Goals Aircraft Shipping Checker Goals Skilled ST not indicated at this time. MORAIMA PETTY PT May 31, 2018 11:51
[2018-05-31] MEDS ORDERED: TROUGH ORDER-PHARMACY XX NR (17:00)
--- NOTE | 2018-05-31 17:56 | Cardiology Progress Note ---
Cardiology SOAP Progress Note Subjective: No cardiac complaints. Objective: I&O/Vital Signs 05/31/18 05/31/18 06:00 09:15 Temp 98.5 98.4 Pulse 89 90 Resp 18 18 B/P (MAP) 109/73 (85) 114/69 (84) Pulse Ox 94 98 O2 Delivery Room Air Room Air 05/31/18 00:00 Intake Total 950 ml Balance 950 ml Weight (Pounds): 258 Weight (Ounces): 9.0 Weight (Calculated Kilograms): 117.896260 Constitutional: appears stated age, AAO x 3; No apparent distress; well- developed, well-nourished Respiratory: No accessory muscle use, No respiratory distress, No chest tender , No chest expansion is symmetric; chest is bilaterally symmetric; No lungs clear to percussion; lungs clear to auscultation; No crackles, No rhonchi, No rales, No stridor, No wheezing, No pleural rub, No other Cardiovascular: regular rate-rhythm; No irregularly irregular, No extra beats, No parasternal heave is noted, No JVD, No edema, No bradycardia, No tachycardia , No point of maximal impulse, No cardiac thrills are palpable; S1 and S2; No gallop/S3, No gallop/S4, No diastolic murmur, No systolic murmur, No friction rub, No click, No other Gastrointestional: No tender, No soft, No round, No distended, No pulsatile mass, No organomegaly, No guarding, No rebound, No tenderness, No hernia, No mass, No audible bowel sounds, No abnormal bowel sounds, No abdominal bruits, No spleenomegaly, No other Extremities: No normal range of motion, No non-tender, No normal inspection, No pedal edema, No calf tenderness, No normal capillary refill, No pelvis stable , No calf tenderness, No inflammation, No pedal edema, No slow capillary refill , No swelling, No other, No abrasion, No clubbing, No cyanosis, No ecchymosis, No laceration, No no lower extremity edema bilateral, No significant edema, No tenderness, No wound Neurologic/Psychiatric: no motor/sensory deficits, alert, normal mood/affect, oriented x 3, power is 5/5 both on sides Skin: No normal color, No warm/dry, No cyanosis, No cool, No diaphoresis, No damp, No ecchymosis, No jaundice, No mottled, No pallor, No rash, No tattoos/ piercings, No ulcerations, No rash on exposed areas, No ulcerations on exposed areas, No other Results/Procedures: Labs Laboratory Tests 05/30/18 20:52: Glucometer 184H 05/31/18 06:09: Glucometer 195H 05/31/18 11:09: Glucometer 225H 05/31/18 17:15: Vancomycin Level Trough 15.9 05/31/18 17:36: Glucometer 175H A/P: Assessment/Dx: Recent ACS, PCI to mid LAD and OM 2 with drug-eluting stents, Cardiomyopathy, Nonhealing ulcers left lower extremity, Diabetes Plan: Recent ACS, PCI to mid LAD and OM 2 with drug-eluting stents, dual antiplatelet therapy for at least 1 year. Statin, AZEB inhibitor and beta osmar. Cardiomyopathy, continue AZEB inhibitor and beta osmar. Nonhealing ulcers left lower extremity, PAD will be ruled out. US LE arteries did not show severe PAD. Diabetes, deferred to the primary team. I will be happy to follow as outpatient. Thank you for your consultation. Please call me if you have any questions. Casper Brennan MD, FACP, FACC, FSCAI, FHRS, CCDS Interventional Cardiology Cardiac Electrophysiology Vascular Medicine and Endovascular Interventions Chris BRENNAN MD May 31, 2018 5:56 pm
[2018-05-31 19:20] VITALS: BP 114/69
--- NOTE | 2018-06-03 13:44 | Therapy Team Discharge Summary ---
Therapy Discharge Summary Discharge Recommendations Date of Discharge May 31, 2018 at 19:20 Therapy D/C Recommendations: Home w/ Family Support Occupational Therapy Pt was seen for skilled OT to increase his independence in basic self care to allow him to safely return home after toe amputations, other LE surgery, heart procedures. He was NWB on L UE. On admission he was indep with eating, setup grooming and upper body dressing, SBA bathing and lower body dressing and CGA toileting, toilet and shower transfers. By discharge he had improved to indep eating and modified indep with all other basic ADLs. He used knee scooter, FWW, BSC over toilet, shower bench, grab bars, hand held shower. No continued therapy recommended. See tx plan for goals met. DC OT. Decreased Activ Tolerance, Decreased UE Strength, Dependent Transfers, Impaired Funct Balance, Impaired Self-Care Skills PT Platform Beater Goals Platform Beater Goals PT [facility]it[facility]iary Goals Time Frame: Jun 14, 2018 Transfers (B,C,W/C) (FIM): 6 (met 05/31/18) Roll Left to Right (QC): 6 (met 05/31/18) Sit to Lying (QC): 6 (met 05/31/18) Lying-Sitting on Side/Bed(QC): 6 (met 05/31/18) Sit to Stand (QC): 6 (met 05/2718) Chair/Xxi-jh-Kzxsp Xfer(QC): 6 (met 05/31/18) Car Transfer (QC): 6 (met 05/31/18) Does the Patient Walk: Yes Gait (FIM): 6 (met 05/31/18) Gait distance (FIM): 3=150 ft Distance: 250' Walk 10 feet (QC): 6 (met 05/31/18) Walk 10ft-Uneven Surface(QC): 6 (met 05/31/18) Walk 50ft with 2 Turns (QC): 6 (met 05/31/18) Walk 150 ft (QC): 6 (met 05/31/18) Gait Level of Assist: 6 (met 05/31/18) Gait Assistive Device: FWW (and knee scooter) Stairs (FIM): 2 # of Steps: 4 1 Step (curb) (QC): 5 4 Steps (QC): 5 12 Steps (QC): 88 Stairs Level Of Assist: 5 Picking up an Object (QC): 6 (met 05/31/18) OT Platform Beater Goals Penitentiary Goals Time Frame: Jun 14, 2018 Eating (FIM): 7 (met 05-31-18) Eating (QC): 6 (met 05-31-18) Oral Hygiene (QC): 6 (met 05-31-18) Grooming(FIM): 6 (met 05-31-18) Bathing(FIM): 6 (met 05-31-18) Shower/Bathe Self (QC): 6 (met 05-31-18) Upper Body Dressing(FIM): 6 (met 05-31-18) Upper Body Dressing (QC): 6 (met 05-31-18) Lower Body Dressing(FIM): 6 (met 05-31-18) Lower Body Dressing (QC): 6 (met 05-31-18) On/Off Footwear (QC): 6 (met 05-31-18) Toileting(FIM): 6 (met 05-31-18) Toileting Hygiene (QC): 6 (met 05-31-18) Toilet/Commode Transfer(FIM): 6 (met 05-31-18) Toilet/Commode Transfer (QC): 6 (met 05-31-18) Shower Transfer(FIM): 6 (met 05-31-18) Additional Goals: 1-Demonstrate ADL Tasks, 2-Verbalize Understanding, 3- ImproveStrength/Amy 1=Demonstrate adherence to instructed precautions during ADL tasks. 2=Patient will verbalize/demonstrate understanding of assistive devices/ modifications for ADL. 3=Patient will improve strength/tolerance for activity to enable patient to perform ADL's. Speech Platform Beater Goals Penitentiary Goals Skilled ST not indicated at this time. JOANN RAUSCH OT Jun 03, 2018 13:44
--- NOTE | 2018-06-12 04:49 | DISCHARGE SUMMARY ---
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 The patient underwent drug-eluting coronary stent placement, but just before discharge from ICU, developed a fever, which was felt to be due to left foot ulcer. ID was consulted. The patient was placed on vancomycin and Zosyn. The patient was transferred to hospital service after no further chest discomfort, antibiotics were adjusted. The patient was continued on antibiotics for chronic left foot ulcer. It was felt that it was best to do amputation, otherwise be difficult for his infection to clear up. He had been on IV antibiotics for quite some time. He had amputation with DPM and is nonweightbearing to left lower extremity. He was using a knee scooter for mobility as well as a wheelchair. He was referred to inpatient rehabilitation unit [facility]. He lives with his spouse in [facility]. PAST MEDICAL HISTORY: 1. Infection, a diabetic foot ulcer left, diabetes mellitus, dilated cardiomyopathy, acute coronary syndrome, hypertension, type 2 diabetes mellitus with circulatory disorder status post drug eluting coronary stent placement, acute delirium, history of bipolar disorder, metabolic acidosis, thrombocytopenia, fever, type 2 diabetes mellitus and tobacco use. PCP, Dr. Ha. He has been followed by Dr. Linn as well as wound care clinic. He is status post wound debridement and toe amputation 1, 4 and 5 on the left, metatarsal head excision 2 and 3 on the left and gastrocnemius resection left. He has had amputation of all the toes of the right foot in the past. Reports no issues with regards to pain of ulcers in the right leg and incision has healed well. MEDICAL COURSE: He was continued on his IV antibiotics and followed by Dr. Ha, seen by Dr. Brennan, cardiology as well. He was also seen by Dr. Linn regarding a pressure ulcer left lower back unstageable. Recommendation was continue with bordered foam dressing to left lower back wound and air mattress. The patient was anxious for discharge to home and so his stay was fairly brief. CBC on 05/30/2018 showed WBC 5.9, H and H 9.7/29, platelet count 281 K. Glucometer readings from 05/30/2018 to 05/31/2018 varied between 175 and 225. Chemistry on 05/30/2018 showed normal BUN and creatinine, sodium, potassium, calcium low at 7.9, total protein, albumin low at 5.9 and 2.7. Lower extremity ultrasound on 05/29/2018 showed no evidence for hemodynamically significant stenosis of either lower limb. A chest x-ray revealed minimal right basilar atelectasis and/or pneumonitis on 05/30/2018. This was reviewed by Dr. Ha. REHABILITATION COURSE: The patient was assessed by speech therapy upon admission and found to be cognitively intact. They signed off. OT NOTES: Upon admission, he was independent with eating, set up for grooming and upper body dressing, standby assist for bathing and lower body dressing, contact guard for toileting, toilet and shower transfers. By discharge, he had improved to independent eating and modified independent with all other basic ADLs. No continue therapy was recommended. He will have assistance from his spouse at home. PT NOTES: Upon admission, the patient was standby assist for transfers and the patient is able to perform nonweightbearing left lower extremity from wheeled walker for short distances only, standby assist. The patient is a standby assist for mobility with knee scooter. Upon discharge, the patient was modified independent level of function with all gross motor skills, safety and ambulation with the scooter on all terrains without difficulty. The patient's family have installed a ramp for use at home. Therefore, step goals not attained. DISCHARGE INSTRUCTIONS: The patient will have followup with his hydrology teacher and Dr. Tabor and PCP, Dr. Ha. Continue current diet. He is nonweightbearing left lower extremity. Accu-Cheks as per home regimen. DISCHARGE MEDICATIONS: ASA 81 mg p.o. daily, Lipitor 80 mg p.o. each day at bedtime. Coreg 6.25 mg p.o. b.i.d., cefepime 2 grams IV b.i.d. for 5 days, NovoLog 10 units subcu a.c. Flagyl 500 mg p.o. t.i.d. and 500 mg IV q.8h. for 6 days first. Brilinta 90 mg p.o. b.i.d., vancomycin 1.25 gram IV b.i.d., clonazepam 2 mg p.o. each day at bedtime, Cymbalta 30 mg p.o. daily, Toujeo SoloStar 50 units subcu daily, Lyrica 50 mg p.o. daily. DISCHARGE DIAGNOSES: 1. Postop anemia 2. 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 3. Disuse myopathy. 4. Difficulty walking. 5. Recent myocardial infarction. 6. Coronary artery disease. 7. Diabetes mellitus type 2 with polyneuropathy. 8. Diabetes mellitus type 2 9. Pressure ulcer left low back unstageable followed by Dr. Linn with pressure relief and topical care. 10. Dilated cardiomyopathy. 11. Hypertension, controlled with medication. 12. Presence of coronary angioplasty and drug-eluting stent. CONDITION AT DISCHARGE: Improved and stable. PROGNOSIS: Rehab prognosis appears good for some continued improvement at home with wound healing and return to independent living. Job ID: [id number] DocumentID: [id number] Dictated Date: 06/11/2018 12:13:32 Rigging Worker Date: 06/12/2018 04:48:31 Dictated By: MICHEL CHENG MD [facility]
== END 2018-05-31 19:20 | disposition home or self-care (01) | DRG 91 ==
PROVIDERS: ADMIT Physical Medicine & Rehabilitation; ATTEND Physical Medicine & Rehabilitation
DX: G72.89 Other specified myopathies (principal); Z47.81 Encounter for orthopedic aftercare following surgical amputation; Z89.432 Acquired absence of left foot; R26.2 Difficulty in walking, not elsewhere classified; I21.9 Acute myocardial infarction, unspecified; I42.0 Dilated cardiomyopathy; I25.10 Atherosclerotic heart disease of native coronary artery without angina pectoris; I10 Essential (primary) hypertension; L89.140 Pressure ulcer of left lower back, unstageable; E11.42 Type 2 diabetes mellitus with diabetic polyneuropathy; E11.65 Type 2 diabetes mellitus with hyperglycemia; F31.9 Bipolar disorder, unspecified; D69.6 Thrombocytopenia, unspecified; E78.00 Pure hypercholesterolemia, unspecified; F41.9 Anxiety disorder, unspecified; F32.9 Major depressive disorder, single episode, unspecified; M19.91 Primary osteoarthritis, unspecified site; Z95.5 Presence of coronary angioplasty implant and graft; Z86.73 Personal history of transient ischemic attack (TIA), and cerebral infarction without residual deficits; Z98.1 Arthrodesis status
CPT/HCPCS: 36415; 71046; 76937; 80053; 80202; 82962; 85027; 93925

== ENCOUNTER → 2018-06-12 | Outpatient (CLI) | payer OTHER ==
[~2018-06-12] MED LIST changes: +ASPI-983 PO; +ATOR80TA76 PO; +CARV6.252 PO; +CEFE2PIG IV; +INSU100V16 SQ; +METR500P4 IV; +METR500T21 PO; +TICA90TA PO; +VANC1.2514 IV
== END ==
LOC: WOUNDCARE 09:57
PROVIDERS: ATTEND Surgery
DX: E11.622 Type 2 diabetes mellitus with other skin ulcer (principal); L97.322 Non-pressure chronic ulcer of left ankle with fat layer exposed
CPT/HCPCS: 99213

== ENCOUNTER → 2018-06-19 | Outpatient (CLI) | payer OTHER | LOC: WOUNDCARE 09:55 | PROVIDERS: ATTEND Surgery | DX: E11.622 Type 2 diabetes mellitus with other skin ulcer (principal); L89.322 Pressure ulcer of left buttock, stage 2 | CPT/HCPCS: 99212 ==

== ENCOUNTER 2018-06-28 18:47 | Outpatient (RCR) | payer OTHER ==
[2018-06-01] MEDS: VANCOMYCIN 1250 MG/NS 250 ML IVPB IV SCH ×4 (09:16→20:18)
[2018-06-01] MEDS: CEFEPIME 2 GM/NS 50 ML IVPB IV SCH ×4 (09:17→20:19)
[2018-06-01 11:00] VITALS: BP 104/59
[2018-06-01 22:53] VITALS: BP 119/59
[2018-06-02 07:40] VITALS: BP 110/67
[2018-06-02] MEDS: CEFEPIME 2 GM/NS 50 ML IVPB IV SCH ×4 (07:44→21:27)
[2018-06-02] MEDS: VANCOMYCIN 1250 MG/NS 250 ML IVPB IV SCH ×4 (07:58→20:07)
[2018-06-02 22:04] VITALS: BP 114/67
[2018-06-03] MEDS: VANCOMYCIN 1250 MG/NS 250 ML IVPB IV SCH ×4 (07:39→19:46)
[2018-06-03] MEDS: CEFEPIME 2 GM/NS 50 ML IVPB IV SCH ×4 (08:53→20:48)
[2018-06-03 09:23] VITALS: BP 118/74
[2018-06-03 19:47] VITALS: BP 110/63
[2018-06-04] MEDS: CEFEPIME 2 GM/NS 50 ML IVPB IV SCH ×4 (07:43→18:43)
[2018-06-04] MEDS: VANCOMYCIN 1250 MG/NS 250 ML IVPB IV SCH ×4 (08:09→18:43)
[2018-06-04 09:35] VITALS: BP 114/69
[2018-06-04 09:48] LABS: ALANINE AMINOTRANSFERASE 11 U/L (0-55); ALBUMIN 2.8 GM/DL (3.2-4.5); ALKALINE PHOSPHATASE 70 U/L (40-136); BILIRUBIN,TOTAL 0.7 MG/DL (0.1-1.0); BUN/CREATININE RATIO 11; CALCIUM 8.8 MG/DL (8.5-10.1); CARBON DIOXIDE 26 MMOL/L (21-32); CHLORIDE 105 MMOL/L (98-107); CREATININE SERUM 0.92 MG/DL (0.60-1.30); GFR ESTIMATED > 60; GLUCOSE 106 MG/DL (70-105); POTASSIUM 4.2 MMOL/L (3.6-5.0); SODIUM 138 MMOL/L (135-145); TOTAL PROTEIN 6.1 GM/DL (6.4-8.2)
[2018-06-04 18:44] VITALS: BP 113/61
[2018-06-04 20:34] VITALS: BP 113/61
[2018-06-05 07:25] VITALS: BP 98/73
[2018-06-05] MEDS: CEFEPIME 2 GM/NS 50 ML IVPB IV SCH ×4 (07:27→19:15)
[2018-06-05] MEDS: VANCOMYCIN 1250 MG/NS 250 ML IVPB IV SCH ×4 (08:09→19:14)
--- NOTE | 2018-06-05 09:13 | Physician Query-Final Dx ---
OMAR OCONNOR 06/05/18 0913: Clinic Account Progress/Dx Physician Query: Please give diagnosis Please give a diagnosis for the Vancomycin and Cefepime treatment thank you Date of Service Jun 05, 2018 at 07:20 RED ABREU DO 06/05/18 1926: Clinic Account Progress/Dx DIAGNOSIS: Diagnosis Sepsis OMAR OCONNOR Jun 05, 2018 09:13 RED ABREU DO Jun 05, 2018 19:26
[2018-06-05 19:16] VITALS: BP 114/69
[2018-06-05 22:16] VITALS: BP 114/69
[2018-06-06 07:30] VITALS: BP 103/73
[2018-06-06] MEDS: VANCOMYCIN 1250 MG/NS 250 ML IVPB IV SCH ×4 (07:43→19:39)
[2018-06-06 07:53] LABS: BASOPHILS % (AUTO) 1 % (0-10); EOSINOPHILS # (AUTO) 0.1 10^3/uL (0.0-0.3); EOSINOPHILS % (AUTO) 1 % (0-10); HEMATOCRIT 34 % (40-54); LYMPHOCYTES % (AUTO) 24 % (12-44); MEAN CORPUSCULAR HEMOGLOBIN 29 PG (25-34); MEAN CORPUSCULAR HGB CONC 32 G/DL (32-36); MEAN CORPUSCULAR VOLUME 91 FL (80-99); MONOCYTES # (AUTO) 0.5 X 10^3 (0.0-1.0); MONOCYTES % (AUTO) 13 % (0-12); NEUTROPHILS # (AUTO) 2.7 X 10^3 (1.8-7.8); NEUTROPHILS % (AUTO) 62 % (42-75); PLATELET COUNT 345 10^3/uL (130-400); RED BLOOD COUNT 3.78 10^6/uL (4.35-5.85); RED CELL DISTRIBUTION WIDTH 14.1 % (10.0-14.5); WHITE BLOOD COUNT 4.3 10^3/uL (4.3-11.0)
[2018-06-06 08:22] LABS: ERYTHROCYTE SEDIMENTATION RATE 57 MM/HR (0-30)
[2018-06-06] MEDS: CEFEPIME 2 GM/NS 50 ML IVPB IV SCH ×4 (09:04→19:39)
[2018-06-07 00:59] VITALS: BP 117/66
[2018-06-07 07:35] VITALS: BP 113/70
[2018-06-07] MEDS: VANCOMYCIN 1250 MG/NS 250 ML IVPB IV SCH ×4 (07:35→19:41)
[2018-06-07] MEDS: CEFEPIME 2 GM/NS 50 ML IVPB IV SCH ×2 (19:41)
[2018-06-07 21:50] VITALS: BP 106/59
[2018-06-08] MEDS: CEFEPIME 2 GM/NS 50 ML IVPB IV SCH ×4 (07:50→19:26)
[2018-06-08] MEDS: VANCOMYCIN 1250 MG/NS 250 ML IVPB IV SCH ×4 (07:52→19:26)
[2018-06-08 07:56] VITALS: BP_SYST 106; BP_SYST 108; BP_DIAS 59; BP_DIAS 70
[2018-06-08 21:31] VITALS: BP 130/68
[2018-06-09 07:44] VITALS: BP 119/63
[2018-06-09] MEDS: VANCOMYCIN 1250 MG/NS 250 ML IVPB IV SCH ×4 (07:49→19:30)
[2018-06-09] MEDS: CEFEPIME 2 GM/NS 50 ML IVPB IV SCH ×4 (07:50→19:29)
[2018-06-10 00:31] VITALS: BP 113/66
[2018-06-10 07:35] VITALS: BP 120/70
[2018-06-10] MEDS: CEFEPIME 2 GM/NS 50 ML IVPB IV SCH ×4 (07:44→21:01)
[2018-06-10 07:54] LABS: HEMOGLOBIN 11.7 G/DL (13.3-17.7); MEAN PLATELET VOLUME 9.1 FL (7.4-10.4); RED BLOOD COUNT 4.03 10^6/uL (4.35-5.85); RED CELL DISTRIBUTION WIDTH 14.1 % (10.0-14.5); WHITE BLOOD COUNT 4.9 10^3/uL (4.3-11.0)
[2018-06-10] MEDS: VANCOMYCIN 1250 MG/NS 250 ML IVPB IV SCH ×4 (08:05→19:41)
[2018-06-10 08:13] LABS: ALANINE AMINOTRANSFERASE 19 U/L (0-55); ALBUMIN 3.2 GM/DL (3.2-4.5); ALKALINE PHOSPHATASE 72 U/L (40-136); BILIRUBIN,TOTAL 0.8 MG/DL (0.1-1.0); BUN/CREATININE RATIO 18; CALCIUM 9.3 MG/DL (8.5-10.1); CARBON DIOXIDE 31 MMOL/L (21-32); CHLORIDE 101 MMOL/L (98-107); CREATININE SERUM 0.87 MG/DL (0.60-1.30); GFR ESTIMATED > 60; GLUCOSE 129 MG/DL (70-105); POTASSIUM 4.2 MMOL/L (3.6-5.0); SODIUM 142 MMOL/L (135-145); TOTAL PROTEIN 6.9 GM/DL (6.4-8.2)
[2018-06-10 08:19] LABS: VANCOMYCIN,TROUGH 16.4 UG/ML (10.0-20.0)
[2018-06-10 09:20] VITALS: BP 120/70
[2018-06-10 20:26] VITALS: BP_SYST 116; BP_SYST 120; BP_DIAS 64; BP_DIAS 70
[2018-06-11 07:25] VITALS: BP 116/74
[2018-06-11] MEDS: CEFEPIME 2 GM/NS 50 ML IVPB IV SCH ×4 (07:30→18:55)
[2018-06-11] MEDS: VANCOMYCIN 1250 MG/NS 250 ML IVPB IV SCH ×4 (07:40→18:55)
[2018-06-11 18:57] VITALS: BP 120/68
[2018-06-11 23:03] VITALS: BP 120/68
[2018-06-12 07:30] VITALS: BP 119/78
[2018-06-12] MEDS: CEFEPIME 2 GM/NS 50 ML IVPB IV SCH ×4 (07:35→19:45)
[2018-06-12] MEDS: VANCOMYCIN 1250 MG/NS 250 ML IVPB IV SCH ×4 (08:03→18:44)
[2018-06-12 18:48] VITALS: BP 119/78
[2018-06-12 18:52] VITALS: BP 119/78
[2018-06-12 20:23] VITALS: BP 119/78
[2018-06-13 07:25] VITALS: BP 105/67
[2018-06-13] MEDS: VANCOMYCIN 1250 MG/NS 250 ML IVPB IV SCH ×4 (07:37→20:28)
[2018-06-13] MEDS: CEFEPIME 2 GM/NS 50 ML IVPB IV SCH ×4 (07:38→19:51)
[2018-06-13 22:00] VITALS: BP 110/66
[2018-06-14] MEDS: CEFEPIME 2 GM/NS 50 ML IVPB IV SCH ×4 (07:37→18:53)
[2018-06-14 07:40] VITALS: BP 116/77
[2018-06-14] MEDS: VANCOMYCIN 1250 MG/NS 250 ML IVPB IV SCH ×4 (08:04→18:48)
[2018-06-14 09:30] VITALS: BP 116/77
[2018-06-14 18:57] VITALS: BP 132/70
[2018-06-14 20:14] VITALS: BP 132/70
[2018-06-15] MEDS: CATHETER FLUSH 10 ML SYR IV PRN ×2 (08:20→09:40)
[2018-06-15] MEDS: VANCOMYCIN 1250 MG/NS 250 ML IVPB IV SCH ×4 (08:20→19:43)
[2018-06-15] MEDS: CEFEPIME 2 GM/NS 50 ML IVPB IV SCH ×4 (08:20→19:44)
[2018-06-15 09:45] VITALS: BP 109/76
[2018-06-15 20:57] VITALS: BP 115/75
[2018-06-16] MEDS: CEFEPIME 2 GM/NS 50 ML IVPB IV SCH ×4 (08:21→19:02)
[2018-06-16] MEDS: VANCOMYCIN 1250 MG/NS 250 ML IVPB IV SCH ×4 (08:22→18:42)
[2018-06-16] MEDS: CATHETER FLUSH 10 ML SYR IV PRN ×2 (08:22→09:37)
[2018-06-16 08:47] VITALS: BP 123/78
[2018-06-16 18:45] VITALS: BP 113/72
[2018-06-16 20:05] VITALS: BP 113/72
[2018-06-17] MEDS: CEFEPIME 2 GM/NS 50 ML IVPB IV SCH ×4 (07:50→19:53)
[2018-06-17] MEDS: CATHETER FLUSH 10 ML SYR IV PRN ×2 (07:51→19:53)
[2018-06-17 08:02] LABS: BASOPHILS % (AUTO) 1 % (0-10); EOSINOPHILS # (AUTO) 0.1 10^3/uL (0.0-0.3); EOSINOPHILS % (AUTO) 1 % (0-10); HEMATOCRIT 40 % (40-54); LYMPHOCYTES # (AUTO) 1.3 X 10^3 (1.0-4.0); LYMPHOCYTES % (AUTO) 30 % (12-44); MEAN CORPUSCULAR HEMOGLOBIN 29 PG (25-34); MEAN CORPUSCULAR HGB CONC 33 G/DL (32-36); MEAN CORPUSCULAR VOLUME 89 FL (80-99); MEAN PLATELET VOLUME 10.1 FL (7.4-10.4); MONOCYTES # (AUTO) 0.6 X 10^3 (0.0-1.0); MONOCYTES % (AUTO) 13 % (0-12); NEUTROPHILS # (AUTO) 2.4 X 10^3 (1.8-7.8); NEUTROPHILS % (AUTO) 55 % (42-75); PLATELET COUNT 235 10^3/uL (130-400); RED BLOOD COUNT 4.45 10^6/uL (4.35-5.85); RED CELL DISTRIBUTION WIDTH 14.4 % (10.0-14.5); WHITE BLOOD COUNT 4.3 10^3/uL (4.3-11.0)
[2018-06-17] MEDS: VANCOMYCIN 1250 MG/NS 250 ML IVPB IV SCH ×4 (08:20→19:53)
[2018-06-17 08:28] LABS: ALANINE AMINOTRANSFERASE 22 U/L (0-55); ALBUMIN 3.7 GM/DL (3.2-4.5); ALKALINE PHOSPHATASE 80 U/L (40-136); BILIRUBIN,TOTAL 0.5 MG/DL (0.1-1.0); BUN/CREATININE RATIO 23; CALCIUM 9.2 MG/DL (8.5-10.1); CARBON DIOXIDE 24 MMOL/L (21-32); CHLORIDE 107 MMOL/L (98-107); CREATININE SERUM 0.88 MG/DL (0.60-1.30); GFR ESTIMATED > 60; GLUCOSE 66 MG/DL (70-105); POTASSIUM 4.3 MMOL/L (3.6-5.0); SODIUM 139 MMOL/L (135-145); TOTAL PROTEIN 7.6 GM/DL (6.4-8.2)
[2018-06-17 08:35] LABS: ERYTHROCYTE SEDIMENTATION RATE 29 MM/HR (0-30); VANCOMYCIN,TROUGH 17.3 UG/ML (10.0-20.0)
[2018-06-17 09:17] VITALS: BP 118/76
[2018-06-17 21:28] VITALS: BP 126/79
[2018-06-18] MEDS: CEFEPIME 2 GM/NS 50 ML IVPB IV SCH ×4 (08:30→19:45)
[2018-06-18] MEDS: VANCOMYCIN 1250 MG/NS 250 ML IVPB IV SCH ×4 (08:31→19:45)
[2018-06-18] MEDS: CATHETER FLUSH 10 ML SYR IV PRN ×2 (08:42→19:45)
[2018-06-18 10:00] VITALS: BP 108/79
[2018-06-18 22:17] VITALS: BP 130/73
[2018-06-19] MEDS: VANCOMYCIN 1250 MG/NS 250 ML IVPB IV SCH ×4 (08:37→19:41)
[2018-06-19] MEDS: CEFEPIME 2 GM/NS 50 ML IVPB IV SCH ×4 (08:38→19:41)
[2018-06-19 09:10] VITALS: BP 113/77
[2018-06-19] MEDS: CATHETER FLUSH 10 ML SYR IV PRN (19:42)
[2018-06-19 21:37] VITALS: BP 134/77
[2018-06-20] MEDS: CEFEPIME 2 GM/NS 50 ML IVPB IV SCH ×4 (08:15→19:40)
[2018-06-20] MEDS: VANCOMYCIN 1250 MG/NS 250 ML IVPB IV SCH ×4 (08:15→19:40)
[2018-06-20 09:42] VITALS: BP 145/85
[2018-06-20 19:20] VITALS: BP 137/74
[2018-06-20] MEDS: CATHETER FLUSH 10 ML SYR IV PRN (19:40)
[2018-06-21 08:15] VITALS: BP 137/74
[2018-06-21] MEDS: CEFEPIME 2 GM/NS 50 ML IVPB IV SCH ×4 (08:26→18:43)
[2018-06-21] MEDS: VANCOMYCIN 1250 MG/NS 250 ML IVPB IV SCH ×4 (08:26→18:42)
[2018-06-21 18:49] VITALS: BP 118/74
[2018-06-21 20:01] VITALS: BP 118/74
[2018-06-22] MEDS: CEFEPIME 2 GM/NS 50 ML IVPB IV SCH ×4 (08:12→19:51)
[2018-06-22] MEDS: VANCOMYCIN 1250 MG/NS 250 ML IVPB IV SCH ×4 (08:21→19:51)
[2018-06-22 09:52] VITALS: BP 105/78
[2018-06-22] MEDS: CATHETER FLUSH 10 ML SYR IV PRN ×2 (19:59→22:00)
[2018-06-22 22:08] VITALS: BP 115/69
[2018-06-23] MEDS: CEFEPIME 2 GM/NS 50 ML IVPB IV SCH ×4 (08:18→19:30)
[2018-06-23] MEDS: VANCOMYCIN 1250 MG/NS 250 ML IVPB IV SCH ×4 (08:20→19:29)
[2018-06-23] MEDS: CATHETER FLUSH 10 ML SYR IV PRN (09:40)
[2018-06-23 10:23] VITALS: BP 134/85
[2018-06-23 21:25] VITALS: BP 112/73
[2018-06-24 07:30] VITALS: BP 122/80
[2018-06-24] MEDS: CEFEPIME 2 GM/NS 50 ML IVPB IV SCH ×4 (07:42→19:36)
[2018-06-24 08:03] LABS: BASOPHILS % (AUTO) 0 % (0-10); EOSINOPHILS # (AUTO) 0.1 10^3/uL (0.0-0.3); EOSINOPHILS % (AUTO) 1 % (0-10); HEMATOCRIT 37 % (40-54); LYMPHOCYTES # (AUTO) 1.3 X 10^3 (1.0-4.0); LYMPHOCYTES % (AUTO) 24 % (12-44); MEAN CORPUSCULAR HEMOGLOBIN 29 PG (25-34); MEAN CORPUSCULAR HGB CONC 33 G/DL (32-36); MEAN CORPUSCULAR VOLUME 90 FL (80-99); MEAN PLATELET VOLUME 10.6 FL (7.4-10.4); MONOCYTES # (AUTO) 0.6 X 10^3 (0.0-1.0); MONOCYTES % (AUTO) 12 % (0-12); NEUTROPHILS # (AUTO) 3.4 X 10^3 (1.8-7.8); NEUTROPHILS % (AUTO) 63 % (42-75); PLATELET COUNT 166 10^3/uL (130-400); RED CELL DISTRIBUTION WIDTH 14.4 % (10.0-14.5); WHITE BLOOD COUNT 5.3 10^3/uL (4.3-11.0)
[2018-06-24 08:26] LABS: ALANINE AMINOTRANSFERASE 25 U/L (0-55); ALBUMIN 3.5 GM/DL (3.2-4.5); ALKALINE PHOSPHATASE 67 U/L (40-136); BILIRUBIN,TOTAL 0.5 MG/DL (0.1-1.0); BUN/CREATININE RATIO 23; CALCIUM 8.9 MG/DL (8.5-10.1); CARBON DIOXIDE 28 MMOL/L (21-32); CHLORIDE 104 MMOL/L (98-107); CREATININE SERUM 0.83 MG/DL (0.60-1.30); GFR ESTIMATED > 60; GLUCOSE 110 MG/DL (70-105); POTASSIUM 4.1 MMOL/L (3.6-5.0); SODIUM 138 MMOL/L (135-145); TOTAL PROTEIN 6.9 GM/DL (6.4-8.2)
[2018-06-24 08:31] LABS: VANCOMYCIN,TROUGH 15.3 UG/ML (10.0-20.0)
[2018-06-24 08:48] LABS: BASOPHILS % (MANUAL) 0 %; EOSINOPHILS % (MANUAL) 4 %; ERYTHROCYTE SEDIMENTATION RATE 29 MM/HR (0-30); LYMPHOCYTES % (MANUAL) 30 %; MONOCYTES % (MANUAL) 6 %; NEUTROPHILS % (MANUAL) 60 %; SMUDGE CELLS SLIGHT
[2018-06-24 08:49] LABS: RBC MORPH NORMAL
[2018-06-24] MEDS: VANCOMYCIN 1250 MG/NS 250 ML IVPB IV SCH ×4 (08:50→19:37)
[2018-06-24] MEDS: CATHETER FLUSH 10 ML SYR IV PRN (19:37)
[2018-06-24 21:06] VITALS: BP 126/81
[2018-06-25 07:48] VITALS: BP 108/79
[2018-06-25] MEDS: CEFEPIME 2 GM/NS 50 ML IVPB IV SCH ×4 (07:48→19:08)
[2018-06-25] MEDS: VANCOMYCIN 1250 MG/NS 250 ML IVPB IV SCH ×4 (07:48→19:08)
[2018-06-25] MEDS: CATHETER FLUSH 10 ML SYR IV PRN (07:48)
[2018-06-25 19:10] VITALS: BP 126/78
[2018-06-25 19:16] VITALS: BP 126/78
[2018-06-25 21:56] VITALS: BP 126/78
[2018-06-26 08:00] VITALS: BP 121/74
[2018-06-26] MEDS: VANCOMYCIN 1250 MG/NS 250 ML IVPB IV SCH ×4 (08:06→18:41)
[2018-06-26] MEDS: CEFEPIME 2 GM/NS 50 ML IVPB IV SCH ×4 (09:15→18:42)
[2018-06-26 18:42] VITALS: BP 127/70
[2018-06-27] MEDS: CEFEPIME 2 GM/NS 50 ML IVPB IV SCH ×4 (07:55→18:55)
[2018-06-27] MEDS: VANCOMYCIN 1250 MG/NS 250 ML IVPB IV SCH ×4 (08:00→18:55)
[2018-06-27 09:15] VITALS: BP 114/76
[2018-06-27 18:55] VITALS: BP 118/64
[2018-06-27 20:40] VITALS: BP 118/64
[~2018-06-28] VITALS: Ht 175.3 cm; Wt 81.6 kg
[2018-06-28] MEDS: CEFEPIME 2 GM/NS 50 ML IVPB IV SCH ×4 (07:52→18:47)
[2018-06-28] MEDS: VANCOMYCIN 1250 MG/NS 250 ML IVPB IV SCH ×4 (07:52→18:48)
[2018-06-28 08:16] VITALS: BP 114/75
--- NOTE | 2018-06-28 09:32 | Diagnostic Imaging Report ---
CLINICAL INDICATION: Patient with chest heaviness, cough since yesterday. EXAM: Chest x-ray PA and lateral views. COMPARISONS: Chest x-ray dated 05/30/2018. FINDINGS: Lungs/pleura: Lungs are clear. There is no pneumothorax. There is no pleural effusion. Mediastinum: Unremarkable. Pulmonary vasculature: Unremarkable. Heart: There is stable mild cardiomegaly. Bones/extrathoracic soft tissue: There are hypertrophic spurs seen throughout the thoracic spine. Incompletely imaged fusion hardware of the lumbar spine noted on lateral view. IMPRESSION: 1: Stable mild cardiomegaly with no significant pulmonary vascular congestion. 2: Otherwise, there is no radiographic evidence of acute cardiopulmonary process. Dictated by: Dictated on workstation # [id number]
[~2018-06-28 18:47] MED LIST changes: +CATHETER FLUSH 10 ML SYR IV PRN; +CLON1TAB13 PO; -CLON1TAB4 PO; +HYDR-4226 PO; -HYDR-757 PO; -LOSA25TA21 PO; +LOSA25TA6 PO; +ONDANSETRON 4 MG/2 ML (SDV) Z0FRAN IVP ONE; +ONDANSETRON 4 MG/2 ML (SDV) Z0FRAN ONE; -OXYC-201 PO; +OXYC1TAB16 PO; +TROUGH ORDER-PHARMACY XX NR
[2018-06-28] MEDS: CATHETER FLUSH 10 ML SYR IV PRN ×2 (18:47→20:00)
[2018-06-28 18:52] VITALS: BP 122/68
[2018-06-28 20:15] VITALS: BP 122/68
== END 2018-08-30 | disposition home or self-care (01) ==
LOC: 4TH RCR 18:47
PROVIDERS: ATTEND Family Medicine
DX: A41.9 Sepsis, unspecified organism (principal)
CPT/HCPCS: 36415; 36592; 71046; 76937; 80053; 80202; 82962; 85007; 85025; 85027; 85652; 93005; 96365; 96366; 96367; 96368; 99211

== ENCOUNTER → 2018-07-05 | Outpatient (CLI) | payer OTHER ==
[~2018-07-05] MED LIST changes: -CATHETER FLUSH 10 ML SYR IV PRN; -ONDANSETRON 4 MG/2 ML (SDV) Z0FRAN IVP ONE; -ONDANSETRON 4 MG/2 ML (SDV) Z0FRAN ONE; -TROUGH ORDER-PHARMACY XX NR
== END ==
LOC: WOUNDCARE 11:10
PROVIDERS: ATTEND Surgery
DX: E11.622 Type 2 diabetes mellitus with other skin ulcer (principal); L89.322 Pressure ulcer of left buttock, stage 2
CPT/HCPCS: 99213

== ENCOUNTER → 2018-07-10 | Outpatient (CLI) | payer OTHER | LOC: WOUNDCARE 11:27 | PROVIDERS: ATTEND Surgery | DX: E11.622 Type 2 diabetes mellitus with other skin ulcer (principal); L89.322 Pressure ulcer of left buttock, stage 2 | CPT/HCPCS: 99212 ==

== ENCOUNTER → 2018-07-22 | Outpatient (CLI) | payer OTHER | LOC: WOUNDCARE 12:18 | PROVIDERS: ATTEND Surgery | DX: E11.622 Type 2 diabetes mellitus with other skin ulcer (principal); L89.322 Pressure ulcer of left buttock, stage 2 | CPT/HCPCS: 97597 ==

== ENCOUNTER 2018-07-26 10:38 | Outpatient (RCR) | payer OTHER | END 2018-08-04 | disposition home or self-care (01) | LOC: CR 10:38 | PROVIDERS: ATTEND Internal Medicine Cardiovascular Disease | DX: Z48.812 Encounter for surgical aftercare following surgery on the circulatory system (principal); Z95.5 Presence of coronary angioplasty implant and graft | CPT/HCPCS: 93798 ==

== ENCOUNTER 2018-08-05 14:07 | Outpatient (RCR) | payer OTHER ==
[~2018-08-05 14:07] MED LIST changes: +METR-197 PO; -METR500T21 PO
[2018-10-20] MEDS ORDERED: CEPH-507 PO (13:05)
== END 2018-11-03 | disposition home or self-care (01) ==
LOC: CR 14:07
PROVIDERS: ATTEND Internal Medicine Cardiovascular Disease
DX: Z48.812 Encounter for surgical aftercare following surgery on the circulatory system (principal); Z95.5 Presence of coronary angioplasty implant and graft
CPT/HCPCS: 93798

== ENCOUNTER → 2018-08-14 | Outpatient (CLI) | payer OTHER ==
[~2018-08-14] MED LIST changes: -METR-197 PO; +METR500T21 PO
== END ==
LOC: WOUNDCARE 12:20
PROVIDERS: ATTEND Surgery
DX: E11.622 Type 2 diabetes mellitus with other skin ulcer (principal); L89.322 Pressure ulcer of left buttock, stage 2
CPT/HCPCS: 99212

== ENCOUNTER → 2018-10-14 | Outpatient (CLI) | payer OTHER ==
[~2018-10-14] MED LIST changes: +METR-197 PO; -METR500T21 PO
--- NOTE | 2018-10-14 14:32 | Diagnostic Imaging Report ---
EXAMINATION: PA and lateral chest at 2:05 PM. INDICATION: Cough and congestion. FINDINGS: The heart size is within normal limits and the heart does seem somewhat less prominent than noted on the prior exam of 06/28/2018. The lungs are clear. There is no sign of failure, pneumonia, or pleural effusion. The mediastinum is not widened. The osseous structures are intact. IMPRESSION: There is no evidence for active disease. Dictated by: Dictated on workstation # [id number]
== END ==
LOC: RAD 13:34
PROVIDERS: ATTEND Nurse Practitioner Family
DX: R05 Cough (principal); R09.81 Nasal congestion
CPT/HCPCS: 71046

== ENCOUNTER → 2018-10-17 | Outpatient (CLI) | payer OTHER ==
[~2018-10-17] MED LIST changes: +CEPH-507 PO
== END ==
LOC: CARD 12:41
PROVIDERS: ATTEND Internal Medicine Interventional Cardiology
DX: I42.9 Cardiomyopathy, unspecified (principal); I25.10 Atherosclerotic heart disease of native coronary artery without angina pectoris; I51.9 Heart disease, unspecified
CPT/HCPCS: 93306

== ENCOUNTER 2018-10-20 10:30 | Emergency (ER) | payer OTHER ==
[~2018-10-20] VITALS: Ht 193 cm; Wt 113.4 kg
[~2018-10-20 10:30] MED LIST changes: -CEPH-507 PO
--- OUTSIDE RECORDS SUMMARY | 2018-10-20 10:36 | XMS REPORT | Clinical Summary ---
Author Author [facility] Organization [facility] Address Unknown Phone Unavailable Care Team Providers Care Hunting Guide Name Role Phone Gordo Ferguson MD Unavailable Gildardo Craig MD PCP Georgina Roberts RN Unavailable Unavailable Bren Howard RN Unavailable Unavailable Rohini Muniz DO Unavailable Unavailable Source Comments Some departments are not documenting in the electronic medical record. If you do not see the information that you expected, contact Release of Information in the Health Information Management department at [phone] for further assistance in locating additional records.[facility] Allergies No Known Allergies Medications End Date Status Medication Sig Dispensed Refills Start Date Active clonazePAM (KLONOPIN) 1 Take 1 mg by 0 mg tablet mouth at bedtime daily. Active pregabalin (LYRICA) 75 mg Take 1 Cap by 270 Cap 3 capsule mouth three 4 times daily. Active Problems Problem Noted Date Diabetic foot 11/19/2013 S/P repair of ventral hernia 08/30/2013 Ventral hernia 08/13/2013 Abdominal pain 08/11/2013 Immunizations Name Dates Previously Given Next Due Flu Vaccine Trivalent=>3 08/31/2013 Yo (Preservative Free) Social History Date Tobacco Use Types Packs/Day Years Used Never Smoker Smokeless Tobacco: Never Used Alcohol Use Drinks/Week oz/Week Comments No Sex Assigned at Date Recorded Not on file Industry Job Start Date Occupation Not on file Not on file Not on file Travel End Travel History Travel Start No recent travel history available. Last Filed Vital Signs Time Taken Vital Sign Reading 11/17/2013 3:22 PM [employer] Blood Pressure 146/79 11/17/2013 3:22 PM [employer]AC[employer] NEUROPSYCHOLOGIST Pulse 100 11/17/2013 3:22 PM FACULTY NEUROPSYCHOLOGIST Temperature 36.2 C (97.1 F) 11/17/2013 3:22 PM FACULTY NEUROPSYCHOLOGIST Respiratory Rate 20 09/20/2013 9:44 PM FACULTY NEUROPSYCHOLOGIST Oxygen Saturation 99% - Inhaled Oxygen - Concentration 11/17/2013 3:22 PM FACULTY NEUROPSYCHOLOGIST Weight 116.1 kg (256 lb) 11/17/2013 3:22 PM FACULTY NEUROPSYCHOLOGIST Height 188 cm (6' 2") 11/17/2013 3:22 PM FACULTY NEUROPSYCHOLOGIST Body Mass Index 32.87 Plan of Treatment Health Maintenance Due Date Last Done Comments HEPATITIS C SCREENING 1962 PHYSICAL (COMPREHENSIVE) 1969 EXAM HIV SCREENING 1977 DTAP/TDAP VACCINES (1 - 1980 Tdap) COLORECTAL CANCER 2012 SCREENING SHINGLES RECOMBINANT 2012 VACCINE (1 of 2) INFLUENZA VACCINE 06/05/2018 08/31/2013 Results Not on filefrom Last 3 Months Advance Directives Patient has advance care planning documents, and code status on file. For more information, please contact: [facility] [address] [place] [address] Date Inactivated Comments Code Status Date Activated 09/08/2013 6:52 PM Full Code 08/30/2013 11:52 PM Provider has discussed Code Status Yes w/Patient or Family? 08/16/2013 7:47 PM Full Code 08/13/2013 5:24 PM Provider has discussed Code Status Yes w/Patient or Family?
--- OUTSIDE RECORDS SUMMARY | 2018-10-20 10:41 | XMS REPORT | CCD ---
Author Author Madeline Kennedy MD, [facility] Address [address] [place] [address] Phone Care Team Providers Care [facility] Hand Name Role Phone PP Unavailable CCM Unavailable Summary Purpose Interface Exchange Insurance Providers Payer name Policy type / Coverage type Covered republican ID Effective Begin Date Effective End Date Blue Cross Blue Shield [facility] Blue Cross/Blue Shield [id number] Unknown Family history Father Diagnosis Age At Onset Hyperlipidemia Unknown Heart Attack Unknown Mother Diagnosis Age At Onset Hypertension Unknown Social History Social History Element Codes Description Effective Dates Marital status Unknown Mignon 01/20/2016 Number of children Unknown 4 01/20/2016 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3 Active 10/17/2018 Unknown Acute bronchitis, unspecified ICD-9: 466.0 ICD-10: J20.9 Active 10/14/2018 Unknown Cough ICD-9: 786.2 ICD-10: R05 Active 02/16/2017 Unknown Acute laryngopharyngitis ICD-9: 465.0 ICD-10: J06.0 Active 06/07/2017 Unknown Acute recurrent maxillary sinusitis ICD-9: 461.0 ICD-10: J01.01 Active 02/16/2017 Unknown Type 2 diabetes mellitus with hyperglycemia ICD-9: 250.00 ICD-10: E11.65 Active 06/21/2016 Unknown Essential (primary) hypertension ICD-9: 401.1 ICD-10: I10 Active 03/01/2017 Unknown Mixed hyperlipidemia ICD-9: 272.2 ICD-10: E78.2 Active 05/22/2016 Unknown Bipolar disorder, current episode depressed, moderate ICD-9: 296.52 ICD-10: F31.32 Active 03/07/2018 Unknown Type 2 diabetes mellitus with other specified complication ICD-9: 250.80 ICD-10: E11.69 Active 05/14/2016 Unknown VACCIN FOR INFLUENZA ICD-9: V04.81 ICD-10: Z23 Active 08/16/2017 Unknown Insomnia due to medical condition ICD-9: 327.01 ICD-10: G47.01 Active 07/16/2018 Unknown Other allergic rhinitis ICD-9: 477.8 ICD-10: J30.89 Active 06/28/2018 Unknown Diarrhea, unspecified ICD-9: 787.91 ICD-10: R19.7 Active 06/21/2018 Unknown Localized edema ICD-9 : 782.3 ICD-10: R60.0 Active 06/04/2018 Unknown Myalgia ICD-9: 729.1 ICD-10: M79.1 Active 04/29/2018 Unknown Pain in left hip ICD-9 : 719.45 ICD-10: M25.552 Active 05/02/2018 Unknown Pain in right hip ICD- 9: 719.45 ICD-10: M25.551 Active 05/02/2018 Unknown Major depressive disorder, single episode, moderate ICD-9: 296.22 ICD-10: F32.1 Active 02/28/2018 Unknown Orthostatic hypotension ICD-9: 458.0 ICD-10: I95.1 Active 02/28/2018 Unknown Other fatigue ICD-9: 780.79 ICD-10: R53.83 Active 08/27/2017 Unknown Gastro-esophageal reflux disease without esophagitis ICD-9: 530.81 ICD-10: K21.9 Active 06/07/2017 Unknown Other malaise ICD-9: 780.79 ICD-10: R53.81 Active 08/27/2017 Unknown Type 2 diabetes mellitus with foot ulcer ICD-9: 250.80 ICD-10: E11.621 Active 10/08/2016 Unknown Pain in left shoulder ICD-9: 719.41 ICD-10: M25.512 Active 08/27/2017 Unknown Pain in right shoulder ICD-9: 719.41 ICD-10: M25.511 Active 08/27/2017 Unknown Zoster without complications ICD-9: 053.9 ICD-10: B02.9 Active 07/26/2017 Unknown Cellulitis of right lower limb ICD-9: 682.7 ICD-10: L03.115 Active 10/12/2016 Unknown Laceration without foreign body of left forearm, initial encounter ICD-9: 881.00 ICD-10: S51.812A Active 06/29/2017 Unknown Dysuria ICD-9: 788.1 ICD-10: R30.0 Active 06/21/2017 Unknown Insect bite (nonvenomous) of abdominal wall, initial encounter ICD-9: 911.4 ICD-10: S30.861A Active 05/17/2017 Unknown Diabetes Unknown Active 05/04/2017 Unknown Allergic contact dermatitis due to plants, except food ICD-9: 692.6 ICD-10: L23.7 Active 01/19/2016 Unknown Nasal congestion ICD-9 : 478.19 ICD-10: [...] ICD-9: 735.5 ICD-10: M20.5X2 Active 07/17/2016 Unknown Other hemoglobinopathies ICD-9: 282.7 ICD-10: D58.2 Active 05/22/2016 Unknown Encounter for general adult medical examination without abnormal findings ICD-9: V70.0 ICD-10: Z00.00 Active 05/16/2016 Unknown Dehydration ICD-9: 276.51 ICD-10: E86.0 Active 05/14/2016 Unknown Problems Condition Codes Effective Dates Condition Status Cellulitis of left lower limb ICD-9: 682.7 ICD-10: L03.116 10/17/2018 Active Cellulitis of right lower limb ICD-9: 682.6 ICD-10: L03.115 10/17/2018 Active Spontaneous ecchymoses ICD-9: 782.7 ICD-10: R23.3 10/17/2018 Active Acute bronchitis, unspecified ICD-9: 466.0 ICD-10: J20.9 10/14/2018 Active Cough ICD-9: 786.2 ICD-10: R05 02/16/2017 Active Acute laryngopharyngitis ICD-9: 465.0 ICD-10: J06.0 06/07/2017 Active Acute recurrent maxillary sinusitis ICD-9: 461.0 ICD-10: J01.01 02/16/2017 Active Type 2 diabetes mellitus with hyperglycemia ICD-9: 250.00 ICD-10: E11.65 06/21/2016 Active Essential (primary) hypertension ICD-9: 401.1 ICD-10: I10 03/01/2017 Active Mixed hyperlipidemia ICD-9: 272.2 ICD-10: E78.2 05/22/2016 Active Bipolar disorder, current episode depressed, moderate ICD-9: 296.52 ICD-10: F31.32 03/07/2018 Active Type 2 diabetes mellitus with other specified complication ICD-9: 250.80 ICD-10: E11.69 05/14/2016 Active VACCIN FOR INFLUENZA ICD-9: V04.81 ICD-10: Z23 08/16/2017 Active Insomnia due to medical condition ICD-9: 327.01 ICD-10: G47.01 07/16/2018 Active Other allergic rhinitis ICD-9: 477.8 ICD-10: J30.89 06/28/2018 Active Diarrhea, unspecified ICD-9: 787.91 ICD-10: R19.7 06/21/2018 Active Localized edema ICD-9 : 782.3 ICD-10: R60.0 06/04/2018 Active Myalgia ICD-9: 729.1 ICD-10: M79.1 04/29/2018 Active Pain in left hip ICD-9 : 719.45 ICD-10: M25.552 05/02/2018 Active Pain in right hip ICD- 9: 719.45 ICD-10: M25.551 05/02/2018 Active Major depressive disorder, single episode, moderate ICD-9: 296.22 ICD-10: F32.1 02/28/2018 Active Orthostatic hypotension ICD-9: 458.0 ICD-10: I95.1 02/28/2018 Active Other fatigue ICD-9: 780.79 ICD-10: R53.83 08/27/2017 Active Gastro-esophageal reflux disease without esophagitis ICD-9: 530.81 ICD-10: K21.9 06/07/2017 Active Other malaise ICD-9: 780.79 ICD-10: R53.81 08/27/2017 Active Type 2 diabetes mellitus with foot ulcer ICD-9: 250.80 ICD-10: E11.621 10/08/2016 Active Pain in left shoulder ICD-9: 719.41 ICD-10: M25.512 08/27/2017 Active Pain in right shoulder ICD-9: 719.41 ICD-10: M25.511 08/27/2017 Active Zoster without complications ICD-9: 053.9 ICD-10: B02.9 07/26/2017 Active Cellulitis of right lower limb ICD-9: 682.7 ICD-10: L03.115 10/12/2016 Active Laceration without foreign body of left forearm, initial encounter ICD-9: 881.00 ICD-10: S51.812A 06/29/2017 Active Dysuria ICD-9: 788.1 ICD-10: R30.0 06/21/2017 Active Insect bite (nonvenomous) of abdominal wall, initial encounter ICD-9: 911.4 ICD-10: S30.861A 05/17/2017 Active Diabetes Unknown 05/04/2017 Active Allergic contact dermatitis due to plants, except food ICD-9: 692.6 ICD-10: L23.7 01/19/2016 Active Nasal congestion ICD-9 : 478.19 ICD-10: R09.81 02/16/2017 Active Disorientation, unspecified ICD-9: 293.0 ICD-10: R41.0 01/29/2017 Active Muscle weakness (generalized) ICD-9: 728.87 ICD-10: M62.81 01/29/2017 Active Pain in right foot ICD -9: 729.5 ICD-10: M79.671 10/08/2016 Active Low back pain ICD-9: 724.2 ICD-10: M54.5 07/17/2016 Active Other deformities of toe(s) (acquired), left foot ICD-9: 735.5 ICD-10: M20.5X2 07/17/2016 Active Other hemoglobinopathies ICD-9: 282.7 ICD-10: D58.2 05/22/2016 Active Encounter for general adult medical examination without abnormal findings ICD-9: V70.0 ICD-10: Z00.00 05/16/2016 Active Dehydration ICD-9: 276.51 ICD-10: E86.0 05/14/2016 Active Medications Medication Codes Instructions Start Date Stop Date Status Fill Instructions Levaquin 500 mg tablet RxNorm: 852202 1 Tablet(s) PO daily 10/23/2018 Active albuterol sulfate 2.5 mg/3 mL (0.083 %) solution for nebulization RxNorm: 788951 3 Milliliter(s) INH UD 10/14/2018 No Stop Date Active Tessalon Perles 100 mg capsule RxNorm: 026585 1-2 Capsule(s) PO TID PRN 10/14/2018 No Stop Date Active Levaquin 500 mg tablet RxNorm: 953014 1 Tablet(s) PO daily 08/201810/16/2018 Inactive Coreg 6.25 mg tablet RxNorm: 609019 TAKE ONE TABLET BY MOUTH TWICE A DAY 09/30/2018 03/28/2019 Active albuterol sulfate 2.5 mg/3 mL (0.083 %) solution for nebulization RxNorm: 425975 3 Milliliter(s) INH UD 09/30/201807/2018 Inactive Kenalog 40 mg/mL suspension for injection RxNorm: 9768634 1.5 Milliliter(s) Inj 09/30/2018 09/30/2018 Inactive Keflex 500 mg capsule RxNorm: 888148 1 Capsule(s) PO TID 201710/03/2018 Inactive prednisone 20 mg tablet RxNorm: 146800 2 Tablet(s) PO daily 09/29/2018 Inactive Kenalog 40 mg/mL suspension for injection RxNorm: 3647404 Milliliter(s) Inj 09/11/2018 09/11/2018 Inactive Zyrtec 10 mg tablet RxNorm: 5083497 1 Tablet(s) PO daily 09/0910/08/2018 Inactive Keflex 500 mg capsule RxNorm: 316393 1 Capsule(s) PO TID 201709/15/2018 Inactive Tresiba FlexTouch U-200 insulin 200 unit/mL (3 mL) subcutaneous pen RxNorm: 2134068 50 Unit(s) SQ daily 08/30/2018 08/29/2018 Inactive please give him 30 day supply Tresiba FlexTouch U-200 insulin 200 unit/mL (3 mL) subcutaneous pen RxNorm: 7553986 50 Unit(s) SQ daily 08/30/2018 09/28/2018 Inactive please give him 30 day supply Novolog Flexpen U-100 Insulin aspart 100 unit/mL subcutaneous RxNorm: 2125484 8 Unit(s) SQ AC 08/13/2018 No Stop Date Active Novolog Flexpen U-100 Insulin aspart 100 unit/mL subcutaneous RxNorm: 9312045 8 Unit(s) SQ AC 07/22/20182017 Inactive this is an update on his medication Novolog Flexpen U-100 Insulin aspart 100 unit/mL subcutaneous RxNorm: 2606201 12 Unit(s) SQ AC 07/05/20182017 Inactive this is an update on his medication Toujeo SoloStar U-300 Insulin 300 unit/mL (1.5 mL) subcutaneous pen RxNorm: 8986538 INJECT 50 UNITS UNDER THE SKIN DAILY 07/01/2018 08/29/2018 Inactive Mucinex 600 mg tablet, extended release RxNorm: 330940 1 Tablet(s) PO BID 06/28/2018 07/04/2018 Inactive Zofran 4 mg tablet RxNorm: 906784 1 Tablet(s) PO TID as needed nausea 06/28/2018 07/02/2018 Inactive Kenalog 40 mg/mL suspension for injection RxNorm: 2155768 Milliliter(s) Inj 06/28/2018 06/28/2018 Inactive Flonase Allergy Relief 50 mcg/actuation nasal spray, suspension RxNorm: 8653309 1 [place] NASAL BID 06/28/20182017 Inactive Lyrica 50 mg capsule RxNorm: 356520 Capsule(s) PO daily 201707/07/2018 Inactive Novolog Flexpen U-100 Insulin aspart 100 unit/mL subcutaneous RxNorm: 1785338 10 Unit(s) SQ AC 06/18/20182017 Inactive this is an update on his medication Lasix 20 mg tablet RxNorm: 599263 1 Tablet(s) PO BIW 201707/02/2018 Inactive atorvastatin 80 mg tablet RxNorm: 787044 1 Tablet(s) PO QHS 04/201812/06/2018 Active clonazepam 1 mg tablet RxNorm: 078164 2 Tablet(s) PO HS 201706/04/2019 Active clonazepam 1 mg tablet RxNorm: 050166 2 Tablet(s) PO HS as needed 06/10/2018 06/09/2018 Inactive Lyrica 50 mg capsule RxNorm: 221309 Capsule(s) PO daily 201707/08/2018 Inactive Lasix 20 mg tablet RxNorm: 322467 1 Tablet(s) PO TIW 201706/11/2018 Inactive Toujeo SoloStar U-300 Insulin 300 unit/mL (1.5 mL) subcutaneous pen RxNorm: 5289365 50 Unit(s) SQ daily 05/07/2018 06/30/2018 Inactive meloxicam 15 mg tablet RxNorm: 641471 15 Milligram(s) PO daily 05/02/2018 05/12/2018 Inactive ketorolac 30 mg/mL injection solution RxNorm: 290336 2 Milliliter(s) Inj 05/02/2018 05/02/2018 Inactive Toujeo SoloStar U-300 Insulin 300 unit/mL (1.5 mL) subcutaneous pen RxNorm: 4391518 45 Unit(s) daily 04/29/2018 Inactive clonazepam 1 mg tablet RxNorm: 238507 1 Tablet(s) PO Q8 as needed 04/29/2018 06/09/2018 Inactive doxycycline hyclate 100 mg tablet RxNorm: 0131887 1 Tablet(s) PO BID 04/29/2018 05/12/2018 Inactive Cymbalta 30 mg capsule,delayed release RxNorm: 878672 1 Capsule(s) PO QAM 03/13/2018 10/08/2018 Inactive Lexapro 10 mg tablet RxNorm: 325500 1 Tablet(s) PO QPM 201703/03/2018 Inactive Toujeo SoloStar U-300 Insulin 300 unit/mL (1.5 mL) subcutaneous pen RxNorm: 2449428 20 Unit(s) daily 02/28/2018 Inactive Protonix 40 mg tablet,delayed release RxNorm: 813085 1 Tablet(s) PO daily 01/29/2018 06/09/2018 Inactive clonazepam 1 mg tablet RxNorm: 134868 1 Tablet(s) PO Q8 as needed 12/12/2017 03/10/2018 Inactive Tamiflu 75 mg capsule RxNorm: 631250 1 Capsule(s) PO BID 201712/03/2017 Inactive doxycycline hyclate 100 mg capsule RxNorm: 8169739 1 Capsule(s) PO BID 09/07/2017 09/20/2017 Inactive doxycycline hyclate 100 mg capsule RxNorm: 1383573 1 Capsule(s) PO BID 08/27/2017 09/06/2017 Inactive prednisone 20 mg tablet RxNorm: 529284 2 Tablet(s) PO daily 08/31/2017 Inactive clopidogrel 75 mg tablet RxNorm: 134355 1 Tablet(s) PO daily 06/09/2018 Inactive atorvastatin 40 mg tablet RxNorm: 409725 1 Tablet(s) PO QHS 02/27/2018 Inactive losartan 25 mg tablet RxNorm: 633783 TAKE ONE TABLET BY MOUTH DAILY 08/22/2017 06/09/2018 Inactive Toujeo SoloStar 300 unit/mL (1.5 mL) subcutaneous insulin pen RxNorm: 9682483 45 Unit(s) daily 08/17/2017 08/20/2017 Inactive mupirocin 2 % topical ointment RxNorm: 639244 1 Application TOP TID to the lesions on chest 08/16/2017 08/25/2017 Inactive Toujeo SoloStar 300 unit/mL (1.5 mL) subcutaneous insulin pen RxNorm: 7212133 40 Unit(s) daily 08/16/2017 08/16/2017 Inactive valacyclovir 1 gram tablet RxNorm: 960075 1 Tablet(s) PO TID 08/01/2017 Inactive clonazepam 1 mg tablet RxNorm: 657666 1 Tablet(s) PO Q8 as needed 07/03/2017 09/30/2017 Inactive Levaquin 500 mg tablet RxNorm: 595331 1 Tablet(s) PO daily 06/25/2017 Inactive Levaquin 500 mg tablet RxNorm: 975716 1 Tablet(s) PO daily 06/21/2017 Inactive losartan 25 mg tablet RxNorm: 408476 1 Tablet(s) PO daily 201608/16/2017 Inactive nystatin 100,000 unit/mL oral suspension RxNorm: 465091 5 Milliliter(s) PO QID Swish et swallow 06/18/2017 06/17/2017 Inactive nystatin 100,000 unit/mL oral suspension RxNorm: 951264 5 Milliliter(s) PO QID Swish et swallow 06/18/2017 06/27/2017 Inactive Cipro 500 mg tablet RxNorm: 302126 1 Tablet(s) PO BID 201606/18/2017 Inactive Cipro 500 mg tablet RxNorm: 865742 1 Tablet(s) PO BID 201606/11/2017 Inactive Toujeo SoloStar 300 unit/mL (1.5 mL) subcutaneous insulin pen RxNorm: 8689403 INJECT 10 UNITS UNDER THE SKIN DAILY 06/12/2017 08/15/2017 Inactive Keflex 500 mg capsule RxNorm: 725135 1 Capsule(s) PO TID 201606/13/2017 Inactive doxycycline hyclate 100 mg capsule RxNorm: 7983699 1 Capsule(s) PO BID 05/17/2017 05/21/2017 Inactive doxycycline hyclate 100 mg capsule RxNorm: 4398855 1 Capsule(s) PO BID 05/11/2017 05/16/2017 Inactive losartan 25 mg tablet RxNorm: 352198 1 Tablet(s) PO daily 201606/17/2017 Inactive atorvastatin 40 mg tablet RxNorm: 631901 1 Tablet(s) PO daily 03/01/2017 08/23/2017 Inactive clopidogrel 75 mg tablet RxNorm: 152770 1 Tablet(s) PO daily 08/23/2017 Inactive Flonase Allergy Relief 50 mcg/actuation nasal spray, suspension RxNorm: 9730569 2 [place] NASAL daily 02/16/20172016 Inactive Augmentin 875 mg-125 mg tablet RxNorm: 303516 1 Tablet(s) PO BID 02/16/2017 02/22/2017 Inactive GET PROBIOTIC TO TAKE WHILE ON ABX Tamiflu 75 mg capsule RxNorm: 185550 1 Capsule(s) PO BID 201602/20/2017 Inactive ceftriaxone 500 mg solution for injection RxNorm: 1652146 1 Milliliter(s) Inj 02/16/2017 02/16/2017 Inactive Kenalog 40 mg/mL suspension for injection RxNorm: 3526764 1 Milliliter(s) Inj 02/16/2017 02/16/2017 Inactive Toujeo SoloStar 300 unit/mL (1.5 mL) subcutaneous insulin pen RxNorm: 0138788 25 Unit(s) SQ QAM 02/12/2017 06/10/2017 Inactive Toujeo SoloStar 300 unit/mL (1.5 mL) subcutaneous insulin pen RxNorm: 3813739 10 Unit(s) SQ QAM 02/05/2017 02/11/2017 Inactive lisinopril 10 mg tablet RxNorm: 018859 1 Tablet(s) PO daily 02/28/2017 Inactive atorvastatin 40 mg tablet RxNorm: 427666 1 Tablet(s) PO daily 02/01/2017 02/28/2017 Inactive doxycycline hyclate 100 mg capsule RxNorm: 6447278 1 Capsule(s) PO BID 02/01/2017 02/10/2017 Inactive clonazepam 1 mg tablet RxNorm: 286408 1 Tablet(s) PO Q8 as needed 10/09/2016 01/05/2017 Inactive ceftriaxone 1 gram solution for injection RxNorm: 5402744 Inj 10/06/2016 10/06/2016 Inactive cyclobenzaprine 10 mg tablet RxNorm: 409938 1/2-1 Tablet(s) PO TID PRN 07/18/2016 01/28/2017 Inactive clonazepam 1 mg tablet RxNorm: 170384 1 Tablet(s) PO Q8 as needed 05/31/2016 05/29/2016 Inactive clonazepam 1 mg tablet RxNorm: 925089 1 Tablet(s) PO Q8 as needed 05/31/2016 08/28/2016 Inactive Alyson SigalaoStar 300 unit/mL (1.5 mL) subcutaneous insulin pen RxNorm: 8383672 10 Unit(s) SQ daily 05/23/2016 01/28/2017 Inactive Crestor 10 mg tablet RxNorm: 642065 1 Tablet(s) PO QHS 201501/28/2017 Inactive Crestor 10 mg tablet RxNorm: 320451 1 Tablet(s) PO QHS 201505/18/2016 Inactive clonazepam 1 mg tablet RxNorm: 646369 1 Tablet(s) PO Q8 as needed 04/25/2016 05/30/2016 Inactive prednisone 20 mg tablet RxNorm: 330776 3 Tablet(s) PO daily 06/201602/10/2016 Inactive prednisone 20 mg tablet RxNorm: 554555 3 Tablet(s) PO daily 06/201605/14/2016 Inactive Kenalog 40 mg/mL suspension for injection RxNorm: 5499827 Milliliter(s) Inj 01/20/2016 01/20/2016 Inactive aspirin 81 mg tablet,delayed release RxNorm: 480149 1 Tablet(s) PO daily No Start Date Active Brilinta 90 mg tablet RxNorm: 3181927 1 Tablet(s) PO BID No Start Date Active valsartan 80 mg tablet RxNorm: 084110 1 Tablet(s) PO daily No Start Date Active acetaminophen 500 mg tablet RxNorm: 724405 1-2 Tablet(s) PO as needed No Start Date Active clopidogrel 75 mg tablet RxNorm: 002018 1 Tablet(s) PO daily No Start Date 02/28/2017 Inactive Novolog Flexpen U-100 Insulin aspart 100 unit/mL subcutaneous RxNorm: 9768732 5 units with breakfast lunch and 10 supper Unit(s) SQ No Start Date 06/17/2018 Inactive clonazepam 1 mg tablet RxNorm: 830129 1 Tablet(s) PO QHS No Start Date 04/24/2016 Inactive Coreg 6.25 mg tablet RxNorm: 635059 1 Tablet(s) PO BID No Start Date 09/29/2018 Inactive acyclovir 400 mg tablet RxNorm: 361031 2 Tablet(s) PO 5x daily No Start Date 02/28/2017 Inactive Lyrica 50 mg capsule RxNorm: 097995 Capsule(s) PO BID No Start Date 06/09/2018 Inactive Vraylar 3 mg capsule RxNorm: 8204411 1 Capsule(s) PO daily No Start Date 03/12/2018 Inactive Medication Administered Medication Codes Instructions Start Date Status Kenalog 40 mg/mL suspension for injection RxNorm: 6684937 1.5Milliliter 09/30/2018 No longer Active Kenalog 40 mg/mL suspension for injection RxNorm: 9604609 Milliliter 09/11/2018 No longer Active Kenalog 40 mg/mL suspension for injection RxNorm: 7949784 Milliliter 06/28/2018 No longer Active ketorolac 30 mg/mL injection solution RxNorm: 541732 2Milliliter 05/02/2018 No longer Active ceftriaxone 500 mg solution for injection RxNorm: 5519986 1Milliliter 02/16/2017 No longer Active Kenalog 40 mg/mL suspension for injection RxNorm: 8773946 1Milliliter 02/16/2017 No longer Active ceftriaxone 1 gram solution for injection RxNorm: 7907823 10/06/2016 No longer Active Kenalog 40 mg/mL suspension for injection RxNorm: 5268218 Milliliter 01/20/2016 No longer Active Immunizations Vaccine Codes Date Status Influenza CVX: 141 07/22/2018 completed Influenza CVX: 141 08/16/2017 completed Assessments Condition Codes Effective Dates Spontaneous ecchymoses ICD-10: R23.3 ICD-9: 782.7 10/17/2018 Cellulitis of left lower limb ICD-10: L03.116 ICD-9: 682.7 10/17/2018 Cellulitis of right lower limb ICD-10: L03.115 ICD-9: 682.6 10/17/2018 Cough ICD-10: R05 ICD-9: 786.2 10/14/2018 Acute bronchitis, unspecified ICD-10: J20.9 ICD-9: 466.0 10/14/2018 Acute laryngopharyngitis ICD-10: J06.0 ICD-9: 465.0 09/30/2018 Acute recurrent maxillary sinusitis ICD-10: J01.01 ICD-9: 461.0 09/11/2018 Type 2 diabetes mellitus with hyperglycemia ICD-10: E11.65 ICD-9: 250.00 09/09/2018 Mixed hyperlipidemia ICD-10: E78.2 ICD-9: 272.2 09/06/2018 Essential (primary) hypertension ICD-10: I10 ICD-9: 401.1 09/06/2018 Bipolar disorder, current episode depressed, moderate ICD-10 : F31.32 ICD-9: 296.52 07/22/2018 VACCIN FOR INFLUENZA ICD-10: Z23 ICD-9: V04.81 07/22/2018 Type 2 diabetes mellitus with other specified complication ICD-10: E11.69 ICD-9: 250.80 07/22/2018 Insomnia due to medical condition ICD-10: G47.01 ICD-9: 327.01 07/16/2018 Other allergic rhinitis ICD-10: J30.89 ICD-9: 477.8 06/28/2018 Diarrhea, unspecified ICD-10: R19.7 ICD-9: 787.91 06/21/2018 Localized edema ICD-10: R60.0 ICD-9: 782.3 06/04/2018 Pain in right hip ICD-10: M25.551 ICD-9: 719.45 05/13/2018 Myalgia ICD-10: M79.1 ICD-9: 729.1 05/13/2018 Pain in left hip ICD-10: M25.552 ICD-9: 719.45 05/13/2018 Major depressive disorder, single episode, moderate ICD-10: F32.1 ICD-9: 296.22 04/29/2018 Orthostatic hypotension ICD-10: I95.1 ICD-9: 458.0 03/07/2018 Other fatigue ICD-10: R53.83 ICD-9: 780.79 02/28/2018 Gastro-esophageal reflux disease without esophagitis ICD-10 : K21.9 ICD-9: 530.81 02/13/2018 Other malaise ICD-10: R53.81 ICD-9: 780.79 02/13/2018 Type 2 diabetes mellitus with foot ulcer ICD-10: E11.621 ICD-9: 250.80 01/29/2018 Pain in left shoulder ICD-10: M25.512 ICD-9: 719.41 08/27/2017 Pain in right shoulder ICD-10: M25.511 ICD-9: 719.41 08/27/2017 Zoster without complications ICD-10: B02.9 ICD-9: 053.9 07/26/2017 Cellulitis of right lower limb ICD-10: L03.115 ICD-9: 682.7 07/03/2017 Laceration without foreign body of left forearm, initial encounter ICD-10: S51.812A ICD-9: 881.00 06/29/2017 Dysuria ICD-10: R30.0 ICD-9: 788.1 06/21/2017 Insect bite (nonvenomous) of abdominal wall, initial encounter ICD-10: S30.861A ICD-9: 911.4 05/17/2017 Allergic contact dermatitis due to plants, except food ICD- 10: L23.7 ICD-9: 692.6 05/04/2017 Nasal congestion ICD-10: R09.81 ICD-9: 478.19 02/16/2017 Muscle weakness (generalized) ICD-10: M62.81 ICD-9: 728.87 02/05/2017 Disorientation, unspecified ICD-10: R41.0 ICD-9: 293.0 02/05/2017 Pain in right foot ICD-10: M79.671 ICD-9: 729.5 10/09/2016 Other deformities of toe(s) (acquired), left foot ICD-10: M20.5X2 ICD-9: 735.5 07/18/2016 Low back pain ICD-10: M54.5 ICD-9: 724.2 07/18/2016 Other hemoglobinopathies ICD-10: D58.2 ICD-9: 282.7 05/23/2016 Encounter for general adult medical examination without abnormal findings ICD-10: Z00.00 ICD-9: V70.0 05/17/2016 Dehydration ICD-10: E86.0 ICD-9: 276.51 05/15/2016 Reason For Visit Reason For Visit Effective Dates Notes lower leg pain 10/17/2018 cough 10/14/2018 cough 09/30/2018 cough 09/09/2018 diabetes mellitus 07/22/2018 insomnia 07/16/2018 cough 07/01/2018 cough 06/28/2018 diabetes mellitus 06/18/2018 diabetes mellitus 06/04/2018 arthralgias/myalgias 05/13/2018 arthralgias/myalgias 05/02/2018 dizziness 04/29/2018 fatigue 03/13/2018 fatigue 03/07/2018 fatigue 02/28/2018 fatigue 02/13/2018 sores 01/29/2018 fatigue 08/27/2017 diabetes mellitus 08/16/2017 rash 07/26/2017 [...] Observation Code Item Item Code Result Date Culture Sputum 267931 LOWER RESPIRATORY TRACT CULTURE SEE NOTES 10/16/2018 LIPID GRP [id number] CHOLESTEROL TNP:Duplicate Order 09/10/2018 LIPID GRP [id number] Triglyceride TNP:Duplicate Order 2017 LIPID GRP 3718207 HDL CHOLESTEROL TNP:Duplicate Order 2017 LIPID GRP 3224349 Chol/HDL Ratio TNP:Duplicate Order 2017 LIPID GRP 1790264 LDL Cholesterol TNP:Duplicate Order 2017 A1C HPLC [id number] Hgb A1c 73603-5 TNP:Duplicate Order 2017 C Diff An [id number] GDH TNP:Lab Request 06/22/2018 C Diff An [id number] Toxin A/B TNP:Lab Request 06/22/2018 C Diff An [id number] C Diff Analyzer TNP:Lab Request 2017 C Diff An [id number] IC OK? TNP:Lab Request 06/22/2018 CBC [id number] WBC 6.4 10e9/L 05/02/2018 CBC [id number] RBC 5.60 10e12/L 05/02/2018 CBC 2664552 HEMOGLOBIN 17.0 g/dL 05/02/2018 CBC 2802609 HEMATOCRIT 48.0 % 05/02/2018 CBC [id number] MCV 85.7 fL 05/02/2018 CBC 7137872 MCH 30.4 pg 05/02/2018 CBC 2514844 MCHC 35.4 g/dL 05/02/2018 CBC 2271332 PLATELET COUNT 166 10e9/L 05/02/2018 CBC 5416695 Mean Plt Volume 11.6 fL 05/02/2018 CBC 5562549 Neut Auto 48.6 % 05/02/2018 CBC 4046003 Lymph Auto 41.7 % 05/02/2018 CBC 3045248 [place] Auto 8.1 % 05/02/2018 CBC 0215727 RDW 13.1 % 05/02/2018 CBC [id number] Eos Auto 1.1 % 05/02/2018 CBC [id number] Baso Auto 0.5 % 05/02/2018 CBC [id number] Neutrophil Abs 3.11 10e9/L 05/02/2018 CBC [id number] Lymphocyte Abs 2.67 10e9/L 05/02/2018 CBC [id number] Monocyte Abs 0.52 10e9/L 05/02/2018 CBC [id number] Eosinophil Abs 0.07 10e9/L 05/02/2018 CBC [id number] RDW-SD 40.0 fL 05/02/2018 CBC [id number] Basophil Abs 0.03 10e9/L 05/02/2018 CHEM 14 [id number] AST 17 U/L 05/02/2018 CHEM 14 7431834 ALT 17 U/L 05/02/2018 CHEM 14 8156324 BUN 17 mg/dL 05/02/2018 CHEM 14 2384095 ALBUMIN 4.0 g/dL 05/02/2018 CHEM 14 1893065 CHLORIDE 97 mmol/L 05/02/2018 CHEM 14 7188676 Bili Total 0.9 mg/dL 05/02/2018 CHEM 14 5532387 ALK PHOS 67 U/L 05/02/2018 CHEM 14 6490334 SODIUM 135 mmol/L 05/02/2018 CHEM 14 3212347 CREATININE 1.18 mg/dL 05/02/2018 CHEM 14 4840981 CALCIUM 9.4 mg/dL 05/02/2018 CHEM 14 6292332 POTASSIUM 4.4 mmol/L 05/02/2018 CHEM 14 0788376 TOTAL PROTEIN 6.9 g/dL 05/02/2018 CHEM 14 6960654 GLUCOSE 316 mg/dL 05/02/2018 CHEM 14 7972651 Bicarbonate 29 mmol/L 05/02/2018 CHEM 14 7083532 AGAP 9 mmol/L 05/02/2018 MEAN GLUC 4740711 Calc Mean Gluc 283 mg/dL 05/02/2018 A1C HPLC 8173445 Hgb A1c 26965-9 11.5 % 05/02/2018 GFR CALC 8041310 GFR Non Afr Amr >60 mL/min 05/02/2018 GFR CALC 8949633 GFR Afr Amr >60 mL/min 05/02/2018 JIC Gold [id number] JIC Gold Complete 02/28/2018 GFR CALC 4111128 GFR Non Afr Amr >60 mL/min 02/28/2018 GFR CALC 0398389 GFR Afr Amr >60 mL/min 02/28/2018 UA W/CII 0822426 UA Urine Appear Normal 02/28/2018 UA W/CII 5895967 UA Protein 1+ 02/28/2018 UA W/CII 3159939 UA Hemoglobin Negative 02/28/2018 UA W/CII 3254951 UA Glucose 4+ 02/28/2018 UA W/CII 4565172 UA Ketones Trace 02/28/2018 UA W/CII 4047472 UA pH 5.5 02/28/2018 UA W/CII 3706728 U Spec [place] 1.015 02/28/2018 UA W/CII 1685497 UA Bilirubin Negative 02/28/2018 UA W/CII 2155475 UA Nitrite NEG 02/28/2018 UA W/CII 1943406 UA Leuk Esteras Negative 02/28/2018 MICR 3558207 UA WBC/hpf 1 02/28/2018 MICR [id number] UA RBC hpf 2 02/28/2018 MICR [id number] UA WBC auto 3.8 /uL 02/28/2018 MICR [id number] UA RBC auto 12.2 /uL 02/28/2018 MICR 1000807 UA SQ EPI auto 2.3 /uL 02/28/2018 MICR [id number] UA H Cast auto 0.10 /uL 02/28/2018 CBC [id number] WBC 6.4 10e9/L 02/28/2018 CBC 5329725 RBC 5.51 10e12/L 02/28/2018 CBC 8557882 HEMOGLOBIN 16.7 g/dL 02/28/2018 CBC [id number] HEMATOCRIT 46.9 % 02/28/2018 CBC 5568429 MCV 85.1 fL 02/28/2018 CBC 9662601 MCH 30.3 pg 02/28/2018 CBC 6445666 MCHC 35.6 g/dL 02/28/2018 CBC [id number] PLATELET COUNT 173 10e9/L 02/28/2018 CBC 7567077 Mean Plt Volume 11.6 fL 02/28/2018 CBC 3652054 Neut Auto 51.8 % 02/28/2018 CBC 9581223 Lymph Auto 39.9 % 02/28/2018 CBC 7206910 [place] Auto 7.3 % 02/28/2018 CBC 8377767 Eos Auto 0.8 % 02/28/2018 CBC 6260436 RDW 13.3 % 02/28/2018 CBC [id number] Baso Auto 0.2 % 02/28/2018 CBC 8220160 Neutrophil Abs 3.32 10e9/L 02/28/2018 CBC 3900844 Lymphocyte Abs 2.55 10e9/L 02/28/2018 CBC [id number] Monocyte Abs 0.47 10e9/L 02/28/2018 CBC 0499845 Eosinophil Abs 0.05 10e9/L 02/28/2018 CBC 1297794 Basophil Abs 0.01 10e9/L 02/28/2018 CBC 0728677 RDW-SD 40.8 fL 02/28/2018 CHEM 14 2417992 AST 17 U/L 02/28/2018 CHEM 14 8485637 ALT 17 U/L 02/28/2018 CHEM 14 7923068 BUN 20 mg/dL 02/28/2018 CHEM 14 4717588 ALBUMIN 4.1 g/dL 02/28/2018 CHEM 14 2859709 CHLORIDE 97 mmol/L 02/28/2018 CHEM 14 5921960 Bili Total 1.3 mg/dL 02/28/2018 CHEM 14 0648637 ALK PHOS 78 U/L 02/28/2018 CHEM 14 0657071 SODIUM 135 mmol/L 02/28/2018 CHEM 14 9148224 CREATININE 1.09 mg/dL 02/28/2018 CHEM 14 0699945 CALCIUM 9.6 mg/dL 02/28/2018 CHEM 14 6948772 POTASSIUM 3.8 mmol/L 02/28/2018 CHEM 14 3489996 TOTAL PROTEIN 7.3 g/dL 02/28/2018 CHEM 14 9909209 GLUCOSE 349 mg/dL 02/28/2018 CHEM 14 3250655 Bicarbonate 29 mmol/L 02/28/2018 CHEM 14 1385475 AGAP 9 mmol/L 02/28/2018 [place] Spotted Fever Igg/Igm 139166 FEI MT SPOTTED FEVER IGM EIA . 09/05/2017 [place] Spotted Fever Igg/Igm 262084 RMSF, IGM 0.17 index 09/05/2017 [place] Spotted Fever Igg/Igm 976806 FEI MT SPOTTED FEVER IGG EIA FLEX . 09/05/2017 [place] Spotted Fever Igg/Igm 244076 RMSF, IGG SCREEN-FLEX Positive 09/05/2017 Fei Mtn Spot'D Fev Igg 153789 RMSF, IGG -TITER IFA <1:64 11/2016 Ehrlichia Chaffeensis Antibody Igm [id number] EHRLICHIA CHAFFEENSIS IGM < 1:16 09/03/2017 Ehrlichia Chaffeensis Antibody Igg 819104 EHRLICHIA CHAFFEENSIS IGG <1:64 09/03/2017 Lymes Disease Total Antibodies With Western Blot Reflex B. BURGDORFERI, IGG/IGM 0.223 08/30/2017 Lymes Disease Total Antibodies With Western Blot Reflex C-Reactive Protein Qnt Crqnt CRP 0.00 mg/dl 08/27/2017 Sed Rate Ord21 ESR 8 mm/hr 08/27/2017 Comp Metabolic Kyh787 NA 135 mEq/L 08/16/2017 Comp Metabolic Ulz751 K 4.1 mEq/L 08/16/2017 Comp Metabolic Wcs144 CL 98 mEq/L 08/16/2017 Comp Metabolic Gqv441 CO2 28.0 mEq/L 08/16/2017 Comp Metabolic Rml595 ANION GAP 13 08/16/2017 Comp Metabolic Kvv284 GLUCOSE 299 mg/dL 08/16/2017 Comp Metabolic Ujs060 Creat 0.9 mg/dL 08/16/2017 Comp Metabolic Sxh504 eGFR 90 ml/min/1.73m2 08/16/2017 Comp Metabolic Hxv991 BUN 20 mg/dL 08/16/2017 Comp Metabolic Kwn842 B/C Ratio 21.5 Ratio 08/16/2017 Comp Metabolic Lms276 CALCIUM 9.2 mg/dL 08/16/2017 Comp Metabolic Odz347 ALK PHOS 84 U/L 08/16/2017 Comp Metabolic Htj129 AST(SGOT) 19 U/L 08/16/2017 Comp Metabolic Jgd808 ALT(SGPT) 24 U/L 08/16/2017 Comp Metabolic Ddk934 BILI T 1.1 mg/dL 08/16/2017 Comp Metabolic Iid905 ALBUMIN 4.2 g/dL 08/16/2017 Comp Metabolic Ujx909 TPRO 7.2 g/dL 08/16/2017 Comp Metabolic Qud428 GLOB 3.0 g/dL 08/16/2017 Comp Metabolic Eaq778 A/G Ratio 1.4 Ratio 08/16/2017 Comp Metabolic Ccx672 Osmo 284 mOsmo 08/16/2017 %Hba1C Opu732 % HbA1c 36869-3 12.5 % 08/16/2017 %Hba1C Pfc320 Gluc Ave 312 mg/dL 08/16/2017 Urine Culture Ucult Complete NO Growth Day 2 06/23/2017 Urine Culture Ucult Preliminary NO Growth Day 1 06/23/2017 C RAP A SC [id number] Strep A Negative 06/08/2017 %Hba1C Dut599 % HbA1c 72421-6 9.5 % 05/04/2017 %Hba1C Yok952 Gluc Ave 226 mg/dL 05/04/2017 Tsh Ord6 hTSH II 1.47 uIU/mL 05/04/2017 Cbc With Differential Ord2 WBC 6.14 K/ul 05/04/2017 Cbc With Differential Ord2 RBC 4.86 M/ul 05/04/2017 Cbc With Differential Ord2 HGB 15.4 g/dl 05/04/2017 Cbc With Differential Ord2 HCT 43.7 % 05/04/2017 Cbc With Differential Ord2 Neut% 49.8 % 05/04/2017 Cbc With Differential Ord2 Lymph% 40.4 % 05/04/2017 Cbc With Differential Ord2 MCV 89.9 fl 05/04/2017 Cbc With Differential Ord2 MCH 31.7 pg 05/04/2017 Cbc With Differential Ord2 [place]% 8.5 % 05/04/2017 Cbc With Differential Ord2 Eos% 1.0 % 05/04/2017 Cbc With Differential Ord2 MCHC 35.2 pg 05/04/2017 Cbc With Differential Ord2 Baso% 0.3 % 05/04/2017 Cbc With Differential Ord2 PLT 158 K/ul 05/04/2017 Cbc With Differential Ord2 Neut ABS# 3.06 K/ul 05/04/2017 Cbc With Differential Ord2 RDW 13.6 % 05/04/2017 Cbc With Differential Ord2 Lymph ABS# 2.48 K/ul 05/04/2017 Cbc With Differential Ord2 [place] ABS# 0.5 K/ul 05/04/2017 Cbc With Differential Ord2 Eos ABS# 0.1 K/ul 05/04/2017 Cbc With Differential Ord2 Baso ABS# 0.0 K/ul 05/04/2017 Comp Metabolic Xjx841 NA 135 mEq/L 05/04/2017 Comp Metabolic Qnn517 K 4.2 mEq/L 05/04/2017 Comp Metabolic Rtr868 CL 99 mEq/L 05/04/2017 Comp Metabolic Rnh812 CO2 26.0 mEq/L 05/04/2017 Comp Metabolic Zug426 ANION GAP 14 05/04/2017 Comp Metabolic Uej351 GLUCOSE 277 mg/dL 05/04/2017 Comp Metabolic Ztj010 Creat 0.9 mg/dL 05/04/2017 Comp Metabolic Mav794 eGFR 96 ml/min/1.73m2 05/04/2017 Comp Metabolic Vlh724 BUN 23 mg/dL 05/04/2017 Comp Metabolic Oyi818 B/C Ratio 26.1 Ratio 05/04/2017 Comp Metabolic Woa647 CALCIUM 8.9 mg/dL 05/04/2017 Comp Metabolic Rxv866 ALK PHOS 81 U/L 05/04/2017 Comp Metabolic Ohp881 AST(SGOT) 21 U/L 05/04/2017 Comp Metabolic Kwz340 ALT(SGPT) 27 U/L 05/04/2017 Comp Metabolic Alr609 BILI T 1.2 mg/dL 05/04/2017 Comp Metabolic Ghc910 ALBUMIN 4.0 g/dL 05/04/2017 Comp Metabolic Tug549 TPRO 6.7 g/dL 05/04/2017 Comp Metabolic Gji942 GLOB 2.7 g/dL 05/04/2017 Comp Metabolic Jng052 A/G Ratio 1.5 Ratio 05/04/2017 Comp Metabolic Vnx820 Osmo 284 mOsmo 05/04/2017 C A/B FLU [id number] Influenza A Scr Negative 02/16/2017 C A/B FLU 3301621 Influenza B Scr Positive 02/16/2017 Cbc With [...] 39.7 % 05/23/2016 Cbc With Differential Ord2 MCH 30.3 pg 05/23/2016 Cbc With Differential Ord2 [place]% 8.8 % 05/23/2016 Cbc With Differential Ord2 Eos% 1.0 % 05/23/2016 Cbc With Differential Ord2 MCHC 34.6 pg 05/23/2016 Cbc With Differential Ord2 Baso% 0.2 % 05/23/2016 Cbc With Differential Ord2 PLT 141 K/ul 05/23/2016 Cbc With Differential Ord2 Neut ABS# 2.63 K/ul 05/23/2016 Cbc With Differential Ord2 RDW 13.2 % 05/23/2016 Cbc With Differential Ord2 Lymph ABS# 2.07 K/ul 05/23/2016 Cbc With Differential Ord2 [place] ABS# 0.5 K/ul 05/23/2016 Cbc With Differential Ord2 Eos ABS# 0.1 K/ul 05/23/2016 Cbc With Differential Ord2 Baso ABS# 0.0 K/ul 05/23/2016 Lipid Ord30 CHOL 397 mg/dL 05/17/2016 Lipid Ord30 HDL 48.0 mg/dl 05/17/2016 Lipid Ord30 TRIG 578 mg/dL 05/17/2016 Lipid Ord30 LDL Unable to calculate Due to elevated triglycerides mg/dL 05/17/2016 Lipid Ord30 C/HDL 8.3 Ratio 05/17/2016 %Hba1C Vct951 % HbA1c 61478-3 12.4 % 05/16/2016 %Hba1C Emb526 Gluc Ave 309 mg/dL 05/16/2016 Cbc With Differential Ord2 WBC 6.40 K/ul 05/15/2016 Cbc With Differential Ord2 RBC 5.96 M/ul 05/15/2016 Cbc With Differential Ord2 HGB 18.1 g/dl 05/15/2016 Cbc With Differential Ord2 Neut% 59.3 % 05/15/2016 Cbc With Differential Ord2 HCT 52.1 % 05/15/2016 Cbc With Differential Ord2 Lymph% 31.9 % 05/15/2016 Cbc With Differential Ord2 MCV 87.4 fl 05/15/2016 Cbc With Differential Ord2 [place]% 7.8 % 05/15/2016 Cbc With Differential Ord2 MCH 30.4 pg 05/15/2016 Cbc With Differential Ord2 Eos% 0.8 % 05/15/2016 Cbc With Differential Ord2 MCHC 34.7 pg 05/15/2016 Cbc With Differential Ord2 Baso% 0.2 % 05/15/2016 Cbc With Differential Ord2 PLT 184 K/ul 05/15/2016 Cbc With Differential Ord2 Neut ABS# 3.80 K/ul 05/15/2016 Cbc With Differential Ord2 RDW 14.0 % 05/15/2016 Cbc With Differential Ord2 Lymph ABS# 2.04 K/ul 05/15/2016 Cbc With Differential Ord2 [place] ABS# 0.5 K/ul 05/15/2016 Cbc With Differential Ord2 Eos ABS# 0.1 K/ul 05/15/2016 Cbc With Differential Ord2 Baso ABS# 0.0 K/ul 05/15/2016 Tsh Ord6 hTSH II 1.70 uIU/mL 05/15/2016 Comp Metabolic Vge249 NA 135 mEq/L 05/15/2016 Comp Metabolic Kvq967 K 3.9 mEq/L 05/15/2016 Comp Metabolic Jmr067 CL 96 mEq/L 05/15/2016 Comp Metabolic Bop625 CO2 27.0 mEq/L 05/15/2016 Comp Metabolic Ome326 ANION GAP 16 05/15/2016 Comp Metabolic Zos716 GLUCOSE 183 mg/dL 05/15/2016 Comp Metabolic Wtw129 Creat 1.1 mg/dL 05/15/2016 Comp Metabolic Fmo070 eGFR 71 ml/min/1.73m2 05/15/2016 Comp Metabolic Cyq066 BUN 17 mg/dL 05/15/2016 Comp Metabolic Agg186 B/C Ratio 14.9 Ratio 05/15/2016 Comp Metabolic Dgb506 CALCIUM 9.6 mg/dL 05/15/2016 Comp Metabolic Rls741 ALK PHOS 100 U/L 05/15/2016 Comp Metabolic Hjc326 AST(SGOT) 20 U/L 05/15/2016 Comp Metabolic Try144 ALT(SGPT) 20 U/L 05/15/2016 Comp Metabolic Xsu751 BILI T 1.3 mg/dL 05/15/2016 Comp Metabolic Ohn527 ALBUMIN 4.6 g/dL 05/15/2016 Comp Metabolic Sju558 TPRO 8.1 g/dL 05/15/2016 Comp Metabolic Pyo667 GLOB 3.5 g/dL 05/15/2016 Comp Metabolic Cpo521 A/G Ratio 1.3 Ratio 05/15/2016 Comp Metabolic Fxl293 Osmo 276 mOsmo 05/15/2016 Review of Systems System Result Effective Dates Constitutional No recent illness 2017 Constitutional No chills 10/17/2018 Constitutional No diaphoresis 10/17/2018 Constitutional No fever 10/17/2018 Eyes No eye erythema 10/17/2018 Ears/Nose/Throat/Neck No nasal discharge 10/17/2018 Cardiovascular No chest pain/pressure Respiratory No cough 10/17/2018 Neurologic No alteration of consciousness 10/17/2018 Neurologic No mental status change 2017 Dermatologic ecchymosis 10/17/2018 Constitutional recent illness 10/14/2018 Constitutional No anorexia 10/14/2018 Constitutional No night sweats 2017 Constitutional No chills 10/14/2018 Constitutional No diaphoresis 10/14/2018 Constitutional fatigue 10/14/2018 Constitutional No fever 10/14/2018 Constitutional insomnia 10/14/2018 Constitutional No malaise 10/14/2018 Constitutional No weight loss 10/14/2018 Eyes No eye discharge 10/14/2018 Eyes No eye erythema 10/14/2018 Ears/Nose/Throat/Neck No dizziness 2017 Ears/Nose/Throat/Neck headache 2017 Ears/Nose/Throat/Neck nasal discharge 08/2018 Ears/Nose/Throat/Neck No otalgia 2017 Ears/Nose/Throat/Neck sinus congestion Ears/Nose/Throat/Neck No sore throat 08/2018 Cardiovascular No chest pain/pressure 08/2018 Cardiovascular No dyspnea 10/14/2018 Cardiovascular No edema 10/14/2018 Respiratory No productive sputum 2017 Respiratory cough 10/14/2018 Gastrointestinal No nausea 10/14/2018 Gastrointestinal No vomiting 10/14/2018 Genitourinary/Nephrology No dysuria 10/14 Musculoskeletal joint complaint 2017 Dermatologic No rash 10/14/2018 Neurologic No alteration of consciousness 10/14/2018 Endocrine No dry or coarse skin 2017 Constitutional recent illness 09/30/2018 Constitutional No chills 09/30/2018 Constitutional No diaphoresis 09/30/2018 Constitutional fatigue 09/30/2018 Constitutional No fever 09/30/2018 Eyes No eye discharge 09/30/2018 Eyes No eye erythema 09/30/2018 Ears/Nose/Throat/Neck No dizziness 2017 Ears/Nose/Throat/Neck headache 2017 Ears/Nose/Throat/Neck nasal discharge Ears/Nose/Throat/Neck No otalgia 2017 Ears/Nose/Throat/Neck sinus congestion Ears/Nose/Throat/Neck sore throat 2017 Cardiovascular No chest pain/pressure Cardiovascular No dyspnea 09/30/2018 Cardiovascular No edema 09/30/2018 Respiratory productive sputum 09/30/2018 Respiratory cough 09/30/2018 Gastrointestinal No nausea 09/30/2018 Gastrointestinal No vomiting 09/30/2018 Neurologic No alteration of consciousness 09/30/2018 Constitutional No malaise 09/30/2018 Respiratory No dyspnea 09/30/2018 Respiratory chest congestion 09/30/2018 Neurologic No mental status change 2017 Constitutional recent illness 09/09/2018 Constitutional No anorexia 09/09/2018 Constitutional No night sweats 2017 Constitutional No chills 09/09/2018 Constitutional No diaphoresis 09/09/2018 Constitutional fatigue 09/09/2018 Constitutional insomnia 09/09/2018 Constitutional No fever 09/09/2018 Constitutional No weight loss 09/09/2018 Constitutional weight gain 09/09/2018 Constitutional No malaise 09/09/2018 Eyes No eye discharge 09/09/2018 Eyes No eye erythema 09/09/2018 Ears/Nose/Throat/Neck No dizziness 2017 Ears/Nose/Throat/Neck headache 2017 Ears/Nose/Throat/Neck nasal discharge 03/2018 Ears/Nose/Throat/Neck No otalgia 2017 Ears/Nose/Throat/Neck sinus congestion Ears/Nose/Throat/Neck No sore throat 03/2018 Cardiovascular No chest pain/pressure 03/2018 Cardiovascular No dyspnea 09/09/2018 Cardiovascular No edema 09/09/2018 Respiratory No productive sputum 2017 Respiratory cough 09/09/2018 Gastrointestinal No vomiting 09/09/2018 Gastrointestinal No nausea 09/09/2018 Genitourinary/Nephrology No dysuria 09/09 Musculoskeletal joint complaint 2017 Dermatologic No rash 09/09/2018 Dermatologic sores 09/09/2018 Neurologic No alteration of consciousness 09/09/2018 Endocrine No dry or coarse skin 2017 Constitutional No recent illness 2017 Constitutional No anorexia 07/22/2018 Constitutional No night sweats 2017 Constitutional No chills 07/22/2018 Constitutional No diaphoresis 07/22/2018 Constitutional No fatigue 07/22/2018 Constitutional No fever 07/22/2018 Constitutional No insomnia 07/22/2018 Constitutional No malaise 07/22/2018 Constitutional No weight loss 07/22/2018 Constitutional No weight gain 07/22/2018 Eyes No eye discharge 07/22/2018 Eyes No eye erythema 07/22/2018 Ears/Nose/Throat/Neck No dizziness 2017 Ears/Nose/Throat/Neck No headache 2017 Cardiovascular No chest pain/pressure Cardiovascular No dyspnea 07/22/2018 Respiratory No cough 07/22/2018 Gastrointestinal No abdominal pain 2017 Gastrointestinal No constipation 2017 Gastrointestinal No diarrhea 07/22/2018 Genitourinary/Nephrology No dysuria 07/22 Dermatologic No rash 07/22/2018 Neurologic No alteration of consciousness 07/22/2018 Psychiatric No depression 07/22/2018 Endocrine No dry or coarse skin 2017 Constitutional No recent illness 2017 Constitutional No anorexia 07/16/2018 Constitutional No night sweats 2017 Constitutional No chills 07/16/2018 Constitutional No diaphoresis 07/16/2018 Constitutional No fatigue 07/16/2018 Constitutional No fever 07/16/2018 Constitutional insomnia 07/16/2018 Constitutional No malaise 07/16/2018 Constitutional No weight loss 07/16/2018 Eyes No eye discharge 07/16/2018 Eyes No eye erythema 07/16/2018 Ears/Nose/Throat/Neck No headache 2017 Cardiovascular No chest pain/pressure 09/2018 Cardiovascular No dyspnea 07/16/2018 Cardiovascular No edema 07/16/2018 Respiratory No productive sputum 2017 Respiratory No cough 07/16/2018 Gastrointestinal No abdominal pain 2017 Gastrointestinal No constipation 2017 Gastrointestinal No diarrhea 07/16/2018 Genitourinary/Nephrology No dysuria 07/16 Musculoskeletal No joint complaint 2017 Dermatologic No rash 07/16/2018 Neurologic No alteration of consciousness 07/16/2018 Psychiatric No depression 07/16/2018 Constitutional No weight gain 07/16/2018 Ears/Nose/Throat/Neck No dizziness 2017 Dermatologic No sores 07/16/2018 Constitutional recent illness 07/01/2018 Constitutional No chills 07/01/2018 Constitutional No diaphoresis 07/01/2018 Constitutional No fever 07/01/2018 Respiratory cough 07/01/2018 Respiratory No chest congestion 2017 Constitutional recent illness 06/28/2018 Constitutional chills 06/28/2018 Constitutional diaphoresis 06/28/2018 Constitutional fever 06/28/2018 Eyes No eye erythema 06/28/2018 Ears/Nose/Throat/Neck nasal allergies Ears/Nose/Throat/Neck nasal discharge Ears/Nose/Throat/Neck postnasal drip Ears/Nose/Throat/Neck No sinus congestion 06/28/2018 Ears/Nose/Throat/Neck No sore throat Cardiovascular No chest pain/pressure Respiratory chest congestion 06/28/2018 Respiratory dyspnea on exertion 2017 Respiratory No productive sputum 2017 Gastrointestinal No abdominal pain 2017 Neurologic No alteration of consciousness 06/28/2018 Neurologic No mental status change 2017 Constitutional recent illness 06/18/2018 Constitutional No anorexia 06/18/2018 Constitutional No night sweats 2017 Constitutional No chills 06/18/2018 Constitutional No diaphoresis 06/18/2018 Constitutional No fatigue 06/18/2018 Constitutional No fever 06/18/2018 Constitutional No insomnia 06/18/2018 Constitutional No malaise 06/18/2018 Eyes No eye discharge 06/18/2018 Eyes No eye erythema 06/18/2018 Ears/Nose/Throat/Neck dizziness 2017 Ears/Nose/Throat/Neck No headache 2017 Cardiovascular No chest pain/pressure Cardiovascular No dyspnea 06/18/2018 Cardiovascular No edema 06/18/2018 Respiratory No productive sputum 2017 Respiratory No cough 06/18/2018 Gastrointestinal No abdominal pain 2017 Gastrointestinal No constipation 2017 Genitourinary/Nephrology No dysuria 06/18 Musculoskeletal No joint complaint 2017 Musculoskeletal muscle weakness 2017 Musculoskeletal myalgias 06/18/2018 Dermatologic No rash 06/18/2018 Dermatologic sores 06/18/2018 Neurologic No alteration of consciousness 06/18/2018 Psychiatric No depression 06/18/2018 Constitutional weight loss 06/18/2018 Gastrointestinal No diarrhea 06/18/2018 Constitutional recent illness 06/04/2018 Constitutional chills 06/04/2018 Constitutional diaphoresis 06/04/2018 Constitutional fatigue 06/04/2018 Constitutional No fever 06/04/2018 Constitutional No insomnia 06/04/2018 Eyes No eye discharge 06/04/2018 Eyes No eye erythema 06/04/2018 Ears/Nose/Throat/Neck dizziness 2017 Ears/Nose/Throat/Neck No headache 2017 Cardiovascular No chest pain/pressure Cardiovascular No dyspnea 06/04/2018 Cardiovascular edema 06/04/2018 Respiratory No productive sputum 2017 Respiratory cough 06/04/2018 Gastrointestinal No abdominal pain 2017 Gastrointestinal No constipation 2017 Gastrointestinal No diarrhea 06/04/2018 Gastrointestinal No nausea 06/04/2018 Gastrointestinal No vomiting 06/04/2018 Musculoskeletal No joint complaint 2017 Musculoskeletal myalgias 06/04/2018 Dermatologic No rash 06/04/2018 Neurologic No alteration of consciousness 06/04/2018 Psychiatric depression 06/04/2018 Constitutional weight gain 06/04/2018 Cardiovascular exercise intolerance 06/04 Cardiovascular fatigue 06/04/2018 Dermatologic sores 06/04/2018 Constitutional night sweats 05/13/2018 Constitutional fatigue 05/13/2018 Constitutional insomnia 05/13/2018 Constitutional malaise 05/13/2018 Eyes photophobia 05/13/2018 Ears/Nose/Throat/Neck dizziness 2017 Ears/Nose/Throat/Neck neck pain 2017 Cardiovascular No chest pain/pressure 07/2018 Cardiovascular No dyspnea 05/13/2018 Cardiovascular No edema 05/13/2018 Respiratory No cough 05/13/2018 Gastrointestinal No abdominal pain 2017 Gastrointestinal No vomiting 05/13/2018 Genitourinary/Nephrology No dysuria 05/13 Musculoskeletal arthralgia(s) 05/13/2018 Musculoskeletal muscle weakness 2017 Musculoskeletal myalgias 05/13/2018 Dermatologic No rash 05/13/2018 Neurologic neck pain 05/13/2018 Neurologic weakness 05/13/2018 Psychiatric anxiety 05/13/2018 Psychiatric depression 05/13/2018 Constitutional fatigue 05/02/2018 Constitutional insomnia 05/02/2018 Constitutional malaise 05/02/2018 Eyes photophobia 05/02/2018 Ears/Nose/Throat/Neck neck pain 2017 Constitutional night sweats 05/02/2018 Musculoskeletal arthralgia(s) 05/02/2018 Musculoskeletal muscle weakness 2017 Musculoskeletal myalgias 05/02/2018 Neurologic neck pain 05/02/2018 Neurologic weakness 05/02/2018 Ears/Nose/Throat/Neck dizziness 2017 Cardiovascular No chest pain/pressure Cardiovascular No dyspnea 05/02/2018 Cardiovascular No edema 05/02/2018 Respiratory No cough 05/02/2018 Gastrointestinal No abdominal pain 2017 Gastrointestinal No vomiting 05/02/2018 Genitourinary/Nephrology No dysuria 05/02 Dermatologic No rash 05/02/2018 Psychiatric depression 05/02/2018 Psychiatric anxiety 05/02/2018 Constitutional recent illness 04/29/2018 Constitutional No anorexia 04/29/2018 Constitutional night sweats 04/29/2018 Constitutional chills 04/29/2018 Constitutional diaphoresis 04/29/2018 Constitutional fatigue 04/29/2018 Constitutional No fever 04/29/2018 Constitutional No insomnia 04/29/2018 Constitutional No malaise 04/29/2018 Constitutional No weight loss 04/29/2018 Constitutional No weight gain 04/29/2018 Eyes No eye discharge 04/29/2018 Eyes No eye erythema 04/29/2018 Ears/Nose/Throat/Neck dizziness 2017 Ears/Nose/Throat/Neck No headache 2017 Cardiovascular No chest pain/pressure Cardiovascular No dyspnea 04/29/2018 Cardiovascular No edema 04/29/2018 Respiratory No productive sputum 2017 Respiratory No cough 04/29/2018 Gastrointestinal No abdominal pain 2017 Gastrointestinal No constipation 2017 Gastrointestinal diarrhea 04/29/2018 Gastrointestinal No nausea 04/29/2018 Gastrointestinal No vomiting 04/29/2018 Genitourinary/Nephrology No dysuria 04/29 Musculoskeletal No joint complaint 2017 Musculoskeletal myalgias 04/29/2018 Dermatologic No rash 04/29/2018 Dermatologic sores 04/29/2018 Neurologic No alteration of consciousness 04/29/2018 Psychiatric depression 04/29/2018 Musculoskeletal muscle weakness 2017 Constitutional recent illness 03/13/2018 Constitutional No anorexia 03/13/2018 Constitutional No night sweats 2017 Constitutional chills 03/13/2018 Constitutional diaphoresis 03/13/2018 Constitutional fatigue 03/13/2018 Constitutional No fever 03/13/2018 Constitutional No insomnia 03/13/2018 Constitutional No malaise 03/13/2018 Constitutional No weight loss 03/13/2018 Constitutional No weight gain 03/13/2018 Eyes No eye discharge 03/13/2018 Eyes No eye erythema 03/13/2018 Ears/Nose/Throat/Neck dizziness 2017 Ears/Nose/Throat/Neck No headache 2017 Cardiovascular No chest pain/pressure 07/2018 Cardiovascular No dyspnea 03/13/2018 Cardiovascular No edema 03/13/2018 Respiratory No productive sputum 2017 Respiratory No cough 03/13/2018 Gastrointestinal No abdominal pain 2017 Gastrointestinal No constipation 2017 Gastrointestinal No diarrhea 03/13/2018 Gastrointestinal No nausea 03/13/2018 Gastrointestinal No vomiting 03/13/2018 Genitourinary/Nephrology No dysuria 03/13 Musculoskeletal No joint complaint 2017 Musculoskeletal myalgias 03/13/2018 Dermatologic No rash 03/13/2018 Dermatologic sores 03/13/2018 Neurologic No alteration of consciousness 03/13/2018 Psychiatric depression 03/13/2018 Constitutional recent illness 03/07/2018 Constitutional No anorexia 03/07/2018 Constitutional No night sweats 2017 Constitutional chills 03/07/2018 Constitutional diaphoresis 03/07/2018 Constitutional fatigue 03/07/2018 Constitutional No fever 03/07/2018 Constitutional No insomnia 03/07/2018 Constitutional No malaise 03/07/2018 Constitutional No weight loss 03/07/2018 Constitutional No weight gain 03/07/2018 Eyes No eye discharge 03/07/2018 Eyes No eye erythema 03/07/2018 Ears/Nose/Throat/Neck dizziness 2017 Ears/Nose/Throat/Neck No headache 2017 Cardiovascular No chest pain/pressure 01/2018 Cardiovascular No dyspnea 03/07/2018 Cardiovascular No edema 03/07/2018 Respiratory No productive sputum 2017 Respiratory No cough 03/07/2018 Gastrointestinal No abdominal pain 2017 Gastrointestinal No constipation 2017 Gastrointestinal No diarrhea 03/07/2018 Gastrointestinal No nausea 03/07/2018 Gastrointestinal No vomiting 03/07/2018 Genitourinary/Nephrology No dysuria 03/07 Musculoskeletal No joint complaint 2017 Musculoskeletal myalgias 03/07/2018 Dermatologic No rash 03/07/2018 Dermatologic sores 03/07/2018 Neurologic No alteration of consciousness 03/07/2018 Psychiatric depression 03/07/2018 Endocrine No dry or coarse skin 2017 Endocrine weakness 03/07/2018 Hematologic/Lymphatic No abnormal ecchymoses 03/07/2018 Constitutional recent illness 02/28/2018 Constitutional fatigue 02/28/2018 Constitutional No fever 02/28/2018 Constitutional No insomnia 02/28/2018 Constitutional No malaise 02/28/2018 Constitutional No weight loss 02/28/2018 Constitutional No weight gain 02/28/2018 Constitutional chills 02/28/2018 Constitutional No night sweats 2017 Constitutional No anorexia 02/28/2018 Constitutional diaphoresis 02/28/2018 Eyes No eye erythema 02/28/2018 Eyes No eye discharge 02/28/2018 Ears/Nose/Throat/Neck dizziness 2017 Ears/Nose/Throat/Neck No headache 2017 Cardiovascular No chest pain/pressure Cardiovascular No edema 02/28/2018 Cardiovascular No dyspnea 02/28/2018 Respiratory No cough 02/28/2018 Respiratory No productive sputum 2017 Gastrointestinal No constipation 2017 Gastrointestinal No diarrhea 02/28/2018 Gastrointestinal No abdominal pain 2017 Gastrointestinal No nausea 02/28/2018 Gastrointestinal No vomiting 02/28/2018 Genitourinary/Nephrology No dysuria 02/28 Musculoskeletal No joint complaint 2017 Musculoskeletal myalgias 02/28/2018 Dermatologic No rash 02/28/2018 Dermatologic sores 02/28/2018 Neurologic No alteration of consciousness 02/28/2018 Psychiatric depression 02/28/2018 Endocrine No dry or coarse skin 2017 Endocrine weakness 02/28/2018 Hematologic/Lymphatic No abnormal ecchymoses 02/28/2018 Constitutional anorexia 02/13/2018 Constitutional No chills 02/13/2018 Constitutional No diaphoresis 02/13/2018 Constitutional fatigue 02/13/2018 Constitutional No fever 02/13/2018 Constitutional malaise 02/13/2018 Constitutional weight loss 02/13/2018 Eyes No eye discharge 02/13/2018 Eyes No eye erythema 02/13/2018 Ears/Nose/Throat/Neck No dizziness 2017 Ears/Nose/Throat/Neck headache 2017 Cardiovascular No chest pain/pressure 09/2018 Cardiovascular No dyspnea 02/13/2018 Respiratory No cough 02/13/2018 Gastrointestinal No abdominal pain 2017 Gastrointestinal gastroesophageal reflux 02/13/2018 Genitourinary/Nephrology No dysuria 02/13 Musculoskeletal joint complaint 2017 Neurologic No alteration of consciousness 02/13/2018 Ears/Nose/Throat/Neck nasal allergies 09/2018 Ears/Nose/Throat/Neck No nasal discharge 02/13/2018 Ears/Nose/Throat/Neck No sinus congestion 02/13/2018 Ears/Nose/Throat/Neck No postnasal drip 02/13/2018 Respiratory No chest congestion 2017 Respiratory No cigarette smoking 2017 Gastrointestinal No constipation 2017 Gastrointestinal diarrhea 02/13/2018 Gastrointestinal No vomiting 02/13/2018 Gastrointestinal No nausea 02/13/2018 Gastrointestinal No melena 02/13/2018 Gastrointestinal No hematochezia 2017 Neurologic No mental status change 2017 Constitutional No recent illness 2017 Constitutional anorexia 01/29/2018 Constitutional No night sweats 2017 Constitutional No chills 01/29/2018 Constitutional No diaphoresis 01/29/2018 Constitutional fatigue 01/29/2018 Constitutional No fever 01/29/2018 Constitutional No insomnia 01/29/2018 Constitutional No malaise 01/29/2018 Constitutional weight loss 01/29/2018 Constitutional No weight gain 01/29/2018 Eyes No eye discharge 01/29/2018 Eyes No eye erythema 01/29/2018 Ears/Nose/Throat/Neck No dizziness 2017 Ears/Nose/Throat/Neck No headache 2017 Cardiovascular No chest pain/pressure Cardiovascular No dyspnea 01/29/2018 Cardiovascular No edema 01/29/2018 Respiratory No cough 01/29/2018 Gastrointestinal No abdominal pain 2017 Musculoskeletal joint complaint 2017 Genitourinary/Nephrology No dysuria 01/29 Dermatologic sores 01/29/2018 Neurologic No alteration of consciousness 01/29/2018 Gastrointestinal gastroesophageal reflux 01/29/2018 Constitutional recent illness 08/27/2017 Constitutional No chills [...] Result Effective Dates Notes Full Exam - Dermatology Constitutional general appearance Overall: well nourished 10/17/2018 None Full Exam - Dermatology Constitutional general appearance Overall: well developed 10/17/2018 None Full Exam - Dermatology Constitutional general appearance Overall: in no acute distress 10/17/2018 None Full Exam - Dermatology Eyes conjunctiva/ eyelids Overall: clear conjunctiva bilaterally 10/17/2018 None Full Exam - Dermatology Eyes conjunctiva/ eyelids Overall: clear corneas 10/17/2018 None Full Exam - Dermatology Eyes conjunctiva/ eyelids Overall: normal eyelids 10/17/2018 None Full Exam - Dermatology Ears/Nose/Throat lips/teeth/gingiva Overall: benign lips 10/17/2018 None Full Exam - Dermatology Ears/Nose/Throat oropharynx Overall: clear oral mucosa 10/17/2018 None Full Exam - Dermatology Respiratory respiratory effort/rhythm Overall: no retractions 10/17/2018 None Full Exam - Dermatology Respiratory respiratory effort/rhythm Overall: normal rate 10/17/2018 None Full Exam - Dermatology Musculoskeletal head and neck Overall: head atraumatic 10/17/2018 None Full Exam - Dermatology Psychiatric orientation Overall: oriented to person, place and time 10/17/2018 None Full Exam - Dermatology Psychiatric mood and affect Overall: normal mood and affect 10/17/2018 None Full Exam - Dermatology Integument insp & palp - right lower extremity Lesion: patch 10/17/2018 mild ecchymosis with faint erythema over anterior walsh - approximately 1 inch in diameter Full Exam - Dermatology Integument insp & palp - left lower extremity Lesion: patch 10/17/2018 None Full Exam - Dermatology Integument insp & palp - left lower extremity Location: on the walsh 10/17/2018 mild ecchymosis with faint erythema over anterior walsh - approximately 1-2 inch in diameter Full Exam - ENT Constitutional general appearance Overall: well nourished 10/14/2018 None Full Exam - ENT Constitutional general appearance Overall: well developed 10/14/2018 None Full Exam - ENT Constitutional general appearance Overall: in no acute distress 10/14/2018 None Full Exam - ENT Ears/Nose/Throat otoscopic exam Overall: external auditory canals normal 10/14/2018 None Full Exam - ENT Ears/Nose/Throat otoscopic exam Overall: tympanic membranes normal 10/14/2018 None Full Exam - ENT Ears/Nose/Throat oropharynx Overall: oral mucosa clear 10/14/2018 None Full Exam - ENT Face and Head palpation Left maxillary sinus: tender 10/14/2018 None Full Exam - ENT Face and Head palpation Right maxillary sinus: tender 10/14/2018 None Full Exam - ENT Respiratory inspection Overall: no retractions 10/14/2018 None Full Exam - ENT Respiratory inspection Overall: normal rate 08/2018 None Full Exam - ENT Cardiovascular auscultation of heart Overall: regular rate 10/14/2018 None Full Exam - ENT Cardiovascular auscultation of heart Overall: normal heart sounds 10/14/2018 None Full Exam - ENT Lymphatic palpation of lymph nodes Overall: anterior cervical chain benign 10/14/2018 None Full Exam - ENT Lymphatic palpation of lymph nodes Overall: posterior cervical chain benign 10/14/2018 None Full Exam - ENT Musculoskeletal spine, ribs and pelvis Overall: good posture 10/14/2018 None Full Exam - ENT Integument inspection of skin Overall: no rash, lesions 10/14/2018 None Full Exam - ENT Neurologic orientation Overall: oriented to person, place and time 10/14/2018 None Full Exam - ENT Respiratory auscultation Overall: breath sounds clear bilaterally 10/14/2018 with deep cough Full Exam - ENT Constitutional general appearance Overall: well nourished 09/30/2018 None Full Exam - ENT Constitutional general appearance Overall: well developed 09/30/2018 None Full Exam - ENT Constitutional general appearance Overall: in no acute distress 09/30/2018 None Full Exam - ENT Ears/Nose/Throat oropharynx Overall: oral mucosa clear 09/30/2018 None Full Exam - ENT Face and Head palpation Left maxillary sinus: tender 09/30/2018 None Full Exam - ENT Face and Head palpation Right maxillary sinus: tender 09/30/2018 None Full Exam - ENT Respiratory inspection Overall: no retractions 09/30/2018 None Full Exam - ENT Respiratory inspection Overall: normal rate None Full Exam - ENT Respiratory auscultation Overall: breath sounds clear bilaterally 09/30/2018 None Full Exam - ENT Cardiovascular auscultation of heart Overall: regular rate 09/30/2018 None Full Exam - ENT Cardiovascular auscultation of heart Overall: normal heart sounds 09/30/2018 None Full Exam - ENT Lymphatic palpation of lymph nodes Overall: anterior cervical chain benign 09/30/2018 None Full Exam - ENT Lymphatic palpation of lymph nodes Overall: posterior cervical chain benign 09/30/2018 None Full Exam - ENT Musculoskeletal spine, ribs and pelvis Overall: good posture 09/30/2018 None Full Exam - ENT Neurologic orientation Overall: oriented to person, place and time 09/30/2018 None Full Exam - ENT Ears/Nose/Throat oropharynx Posterior Pharynx: clear post nasal drainage 09/30/2018 None Full Exam - ENT Respiratory auscultation Diffuse: diminished None Full Exam - ENT Respiratory auscultation Right lower lung field: rhonchi 09/30/2018 None Full Exam - ENT Constitutional general appearance Overall: well nourished 09/09/2018 None Full Exam - ENT Constitutional general appearance Overall: well developed 09/09/2018 None Full Exam - ENT Constitutional general appearance Overall: in no acute distress 09/09/2018 None Full Exam - ENT Neurologic orientation Overall: oriented to person, place and time 09/09/2018 None Full Exam - ENT Integument inspection of skin Overall: no rash, lesions 09/09/2018 None Full Exam - ENT Musculoskeletal spine, ribs and pelvis Overall: good posture 09/09/2018 None Full Exam - ENT Lymphatic palpation of lymph nodes Overall: anterior cervical chain benign 09/09/2018 None Full Exam - ENT Lymphatic palpation of lymph nodes Overall: posterior cervical chain benign 09/09/2018 None Full Exam - ENT Cardiovascular auscultation of heart Overall: normal heart sounds 09/09/2018 None Full Exam - ENT Cardiovascular auscultation of heart Overall: regular rate 09/09/2018 None Full Exam - ENT Respiratory auscultation Overall: breath sounds clear bilaterally 09/09/2018 None Full Exam - ENT Respiratory inspection Overall: no retractions 09/09/2018 None Full Exam - ENT Respiratory inspection Overall: normal rate 03/2018 None Full Exam - ENT Face and Head palpation Left maxillary sinus: tender 09/09/2018 None Full Exam - ENT Face and Head palpation Right maxillary sinus: tender 09/09/2018 None Full Exam - ENT Ears/Nose/Throat otoscopic exam Overall: tympanic membranes normal 09/09/2018 None Full Exam - ENT Ears/Nose/Throat otoscopic exam Overall: external auditory canals normal 09/09/2018 None Full Exam - ENT Ears/Nose/Throat oropharynx Overall: oral mucosa clear 09/09/2018 None Full Exam - General 1994 Constitutional general appearance Overall: well developed 07/22/2018 None Full Exam - General 1994 Constitutional general appearance Overall: in no acute distress 07/22/2018 None Full Exam - General 1994 Constitutional general appearance Overall: well nourished 07/22/2018 None Full Exam - General 1994 Eyes conjunctiva /eyelids Overall: conjunctiva clear 07/22/2018 None Full Exam - General 1994 Eyes pupils and irises Overall: pupils equal, round, reactive to light and accomodation 07/22/2018 None Full Exam - General 1994 Ears/Nose/Throat otoscopic exam Overall: external auditory canals clear 07/22/2018 None Full Exam - General 1994 Ears/Nose/Throat otoscopic exam Overall: tympanic membranes clear 07/22/2018 None Full Exam - General 1994 Ears/Nose/Throat oral cavity/pharynx/larynx Overall: oral mucosa clear 07/22/2018 None Full Exam - General 1994 Respiratory auscultation Overall: breath sounds clear bilaterally 07/22/2018 None Full Exam - General 1994 Respiratory respiratory effort/rhythm Overall: no retractions 07/22/2018 None Full Exam - General 1994 Respiratory respiratory effort/rhythm Overall: normal rate 07/22/2018 None Full Exam - General 1994 Cardiovascular auscultation of heart Overall: regular rate 07/22/2018 None Full Exam - General 1994 Cardiovascular auscultation of heart Overall: normal heart sounds 07/22/2018 None Full Exam - General 1994 Abdomen abdominal exam Overall: no tenderness 07/22/2018 None Full Exam - General 1994 Abdomen abdominal exam Overall: normal bowel sounds 07/22/2018 None Full Exam - General 1994 Lymphatic neck nodes Overall: anterior cervical chain benign 07/22/2018 None Full Exam - General 1994 Lymphatic neck nodes Overall: posterior cervical chain benign 07/22/2018 None Full Exam - General 1994 Integument inspection of skin Overall: no rash, lesions 07/22/2018 None Full Exam - General 1994 Psychiatric orientation/consciousness Overall: oriented to person, place and time 07/22/2018 None Full Exam - General 1994 Neurologic cranial nerves Overall: crainial nerves 2 - 12 grossly intact 07/22/2018 None Full Exam - General 1994 Constitutional general appearance Overall: well developed 07/16/2018 None Full Exam - General 1994 Constitutional general appearance Overall: in no acute distress 07/16/2018 None Full Exam - General 1994 Constitutional general appearance Overall: well nourished 07/16/2018 None Full Exam - General 1994 Eyes conjunctiva /eyelids Overall: conjunctiva clear 07/16/2018 None Full Exam - General 1994 Eyes conjunctiva /eyelids Overall: cornea clear 07/16/2018 None Full Exam - General 1994 Eyes conjunctiva /eyelids Overall: eyelids normal 07/16/2018 None Full Exam - General 1994 Ears/Nose/Throat otoscopic exam Overall: external auditory canals clear 07/16/2018 None Full Exam - General 1994 Ears/Nose/Throat otoscopic exam Overall: tympanic membranes clear 07/16/2018 None Full Exam - General 1994 Ears/Nose/Throat lips/teeth/gingiva Overall: benign lips 07/16/2018 None Full Exam - General 1994 Ears/Nose/Throat oral cavity/pharynx/larynx Overall: oral mucosa clear 07/16/2018 None Full Exam - General 1994 Respiratory auscultation Overall: breath sounds clear bilaterally 07/16/2018 None Full Exam - General 1994 Respiratory respiratory effort/rhythm Overall: no retractions 07/16/2018 None Full Exam - General 1994 Respiratory respiratory effort/rhythm Overall: normal rate 07/16/2018 None Full Exam - General 1994 Cardiovascular auscultation of heart Overall: regular rate 07/16/2018 None Full Exam - General 1994 Cardiovascular auscultation of heart Overall: normal heart sounds 07/16/2018 None Full Exam - General 1994 Abdomen abdominal exam Overall: no tenderness 07/16/2018 None Full Exam - General 1994 Abdomen abdominal exam Overall: normal bowel sounds 07/16/2018 None Full Exam - General 1994 Lymphatic neck nodes Overall: anterior cervical chain benign 07/16/2018 None Full Exam - General 1994 Lymphatic neck nodes Overall: posterior cervical chain benign 07/16/2018 None Full Exam - General 1994 Musculoskeletal head and neck Overall: head atraumatic 07/16/2018 None Full Exam - General 1994 Neurologic cranial nerves Overall: crainial nerves 2 - 12 grossly intact 07/16/2018 None Full Exam - General 1994 Psychiatric orientation/consciousness Overall: oriented to person, place and time 07/16/2018 None Full Exam - General 1994 Psychiatric mood and affect Mood: euphoric 07/16/2018 None Full Exam - General 1994 Respiratory auscultation Overall: breath sounds clear bilaterally 07/01/2018 None Full Exam - General 1994 Respiratory respiratory effort/rhythm Overall: no retractions 07/01/2018 None Full Exam - General 1994 Respiratory respiratory effort/rhythm Overall: normal rate 07/01/2018 None Full Exam - General 1994 Constitutional general appearance Overall: well developed 06/28/2018 None Full Exam - General 1994 Constitutional general appearance Overall: in no acute distress 06/28/2018 None Full Exam - General 1994 Constitutional general appearance Overall: well nourished 06/28/2018 None Full Exam - General 1994 Eyes conjunctiva /eyelids Overall: conjunctiva clear 06/28/2018 None Full Exam - General 1994 Eyes conjunctiva /eyelids Overall: eyelids normal 06/28/2018 None Full Exam - General 1994 Eyes conjunctiva /eyelids Overall: cornea clear 06/28/2018 None Full Exam - General 1994 Eyes pupils and irises Overall: pupils equal, round, reactive to light and accomodation 06/28/2018 None Full Exam - General 1994 Ears/Nose/Throat otoscopic exam Overall: external auditory canals clear 06/28/2018 None Full Exam - General 1994 Ears/Nose/Throat otoscopic exam Overall: tympanic membranes clear 06/28/2018 None Full Exam - General 1994 Ears/Nose/Throat lips/teeth/gingiva Overall: benign lips 06/28/2018 None Full Exam - General 1994 Ears/Nose/Throat oral cavity/pharynx/larynx Overall: oral mucosa clear 06/28/2018 None Full Exam - General 1994 Ears/Nose/Throat oral cavity/pharynx/larynx Posterior Pharynx: clear post nasal drainage 06/28/2018 None Full Exam - General 1994 Ears/Nose/Throat oral cavity/pharynx/larynx Oropharynx: erythema 06/28/2018 mild Full Exam - General 1994 Respiratory auscultation Overall: breath sounds clear bilaterally 06/28/2018 None Full Exam - General 1994 Respiratory auscultation Diffuse: diminished 06/28/2018 None Full Exam - General 1994 Respiratory respiratory effort/rhythm Overall: normal rate 06/28/2018 None Full Exam - General 1994 Respiratory respiratory effort/rhythm Overall: no retractions 06/28/2018 None Full Exam - General 1994 Cardiovascular auscultation of heart Rate: regular rate 06/28/2018 None Full Exam - General 1994 Musculoskeletal head and neck Overall: head atraumatic 06/28/2018 None Full Exam - General 1994 Neurologic cranial nerves Overall: crainial nerves 2 - 12 grossly intact 06/28/2018 None Full Exam - General 1994 Psychiatric orientation/consciousness Overall: oriented to person, place and time 06/28/2018 None Full Exam - General 1994 Psychiatric mood and affect Overall: normal mood and affect 06/28/2018 None Full Exam - General 1994 Constitutional general appearance Overall: well developed 06/18/2018 None Full Exam - General 1994 Constitutional general appearance Overall: in no acute distress 06/18/2018 None Full Exam - General 1994 Constitutional general appearance Overall: well nourished 06/18/2018 None Full Exam - General 1994 Eyes conjunctiva /eyelids Overall: conjunctiva clear 06/18/2018 None Full Exam - General 1994 Eyes conjunctiva /eyelids Overall: cornea clear 06/18/2018 None Full Exam - General 1994 Eyes conjunctiva /eyelids Overall: eyelids normal 06/18/2018 None Full Exam - General 1994 Ears/Nose/Throat otoscopic exam Overall: external auditory canals clear 06/18/2018 None Full Exam - General 1994 Ears/Nose/Throat otoscopic exam Overall: tympanic membranes clear 06/18/2018 None Full Exam - General 1994 Ears/Nose/Throat lips/teeth/gingiva Overall: benign lips 06/18/2018 None Full Exam - General 1994 Ears/Nose/Throat oral cavity/pharynx/larynx Overall: oral mucosa clear 06/18/2018 None Full Exam - General 1994 Respiratory auscultation Overall: breath sounds clear bilaterally 06/18/2018 None Full Exam - General 1994 Respiratory respiratory effort/rhythm Overall: no retractions 06/18/2018 None Full Exam - General 1994 Respiratory respiratory effort/rhythm Overall: normal rate 06/18/2018 None Full Exam - General 1994 Cardiovascular auscultation of heart Overall: regular rate 06/18/2018 None Full Exam - General 1994 Cardiovascular auscultation of heart Overall: normal heart sounds 06/18/2018 None Full Exam - General 1994 Abdomen abdominal exam Overall: no tenderness 06/18/2018 None Full Exam - General 1994 Abdomen abdominal exam Overall: normal bowel sounds 06/18/2018 None Full Exam - General 1994 Lymphatic neck nodes Overall: anterior cervical chain benign 06/18/2018 None Full Exam - General 1994 Lymphatic neck nodes Overall: posterior cervical chain benign 06/18/2018 None Full Exam - General 1994 Musculoskeletal head and neck Overall: head atraumatic 06/18/2018 None Full Exam - General 1994 Neurologic cranial nerves Overall: crainial nerves 2 - 12 grossly intact 06/18/2018 None Full Exam - General 1994 Psychiatric orientation/consciousness Overall: oriented to person, place and time 06/18/2018 None Full Exam - General 1994 Psychiatric mood and affect Mood: depressed 06/18/2018 None Full Exam - General 1994 Constitutional general appearance Development: well developed 06/04/2018 None Full Exam - General 1994 Constitutional general appearance Development: appears stated age 0706/04/2018 None Full Exam - General 1994 Constitutional general appearance Overall: in no acute distress 06/04/2018 None Full Exam - General 1994 Constitutional general appearance Overall: well nourished 06/04/2018 None Full Exam - General 1994 Eyes conjunctiva /eyelids Overall: conjunctiva clear 06/04/2018 None Full Exam - General 1994 Eyes conjunctiva /eyelids Overall: cornea clear 06/04/2018 None Full Exam - General 1994 Eyes conjunctiva /eyelids Overall: eyelids normal 06/04/2018 None Full Exam - General 1994 Eyes pupils and irises Overall: pupils equal, round, reactive to light and accomodation 06/04/2018 None Full Exam - General 1994 Ears/Nose/Throat otoscopic exam Overall: external auditory canals clear 06/04/2018 None Full Exam - General 1994 Ears/Nose/Throat otoscopic exam Overall: tympanic membranes clear 06/04/2018 None Full Exam - General 1994 Ears/Nose/Throat lips/teeth/gingiva Overall: benign lips 06/04/2018 None Full Exam - General 1994 Ears/Nose/Throat lips/teeth/gingiva Overall: normal dentition 06/04/2018 None Full Exam - General 1994 Ears/Nose/Throat oral cavity/pharynx/larynx Overall: oral mucosa clear 06/04/2018 None Full Exam - General 1994 Respiratory auscultation Overall: breath sounds clear bilaterally 06/04/2018 None Full Exam - General 1994 Respiratory respiratory effort/rhythm Overall: no retractions 06/04/2018 None Full Exam - General 1994 Respiratory respiratory effort/rhythm Overall: normal rate 06/04/2018 None Full Exam - General 1994 Cardiovascular extremities Overall: no clubbing 06/04/2018 None Full Exam - General 1994 Cardiovascular auscultation of heart Overall: regular rate 06/04/2018 None Full Exam - General 1994 Cardiovascular auscultation of heart Overall: normal heart sounds 06/04/2018 None Full Exam - General 1994 Cardiovascular auscultation of heart Overall: no murmurs 06/04/2018 None Full Exam - General 1994 Abdomen abdominal exam Overall: no tenderness 06/04/2018 None Full Exam - General 1994 Abdomen abdominal exam Overall: normal bowel sounds 06/04/2018 None Full Exam - General 1994 Lymphatic neck nodes Overall: anterior cervical chain benign 06/04/2018 None Full Exam - General 1994 Lymphatic neck nodes Overall: posterior cervical chain benign 06/04/2018 None Full Exam - General 1994 Musculoskeletal head and neck Overall: head atraumatic 06/04/2018 None Full Exam - General 1994 Neurologic mental status Overall: alert 06/04/2018 None Full Exam - General 1994 Neurologic mental status Overall: oriented 06/04/2018 None Full Exam - General 1994 Psychiatric orientation/consciousness Overall: oriented to person, place and time 06/04/2018 None Full Exam - General 1994 Psychiatric mood and affect Overall: normal mood and affect 06/04/2018 None Full Exam - General 1994 Neurologic cranial nerves Overall: crainial nerves 2 - 12 grossly intact 06/04/2018 None Full Exam - General 1994 Psychiatric mood and affect Mood: depressed 06/04/2018 None Full Exam - General 1994 Constitutional general appearance Overall: well developed 05/13/2018 None Full Exam - General 1994 Constitutional general appearance Overall: in no acute distress 05/13/2018 None Full Exam - General 1994 Constitutional general appearance Overall: well nourished 05/13/2018 None Full Exam - General 1995 Eyes conjunctiva /eyelids Overall: conjunctiva clear 05/13/2018 None Full Exam - General 1994 Eyes conjunctiva /eyelids Overall: cornea clear 05/13/2018 None Full Exam - General 1994 Eyes conjunctiva /eyelids Overall: eyelids normal 05/13/2018 None Full Exam - General 1995 Ears/Nose/Throat otoscopic exam Overall: external auditory canals clear 05/13/2018 None Full Exam - General 1995 Ears/Nose/Throat otoscopic exam Overall: tympanic membranes clear 05/13/2018 None Full Exam - General 1995 Ears/Nose/Throat lips/teeth/gingiva Overall: benign lips 05/13/2018 None Full Exam - General 1995 Ears/Nose/Throat oral cavity/pharynx/larynx Overall: oral mucosa clear 05/13/2018 None Full Exam - General 1994 Respiratory auscultation Overall: breath sounds clear bilaterally 05/13/2018 None Full Exam - General 1994 Respiratory respiratory effort/rhythm Overall: no retractions 05/13/2018 None Full Exam - General 1994 Respiratory respiratory effort/rhythm Overall: normal rate 05/13/2018 None Full Exam - General 1994 Cardiovascular auscultation of heart Overall: regular rate 05/13/2018 None Full Exam - General 1994 Cardiovascular auscultation of heart Overall: normal heart sounds 05/13/2018 None Full Exam - General 1994 Abdomen abdominal exam Overall: no tenderness 05/13/2018 None Full Exam - General 1994 Abdomen abdominal exam Overall: normal bowel sounds 05/13/2018 None Full Exam - General 1994 Lymphatic neck nodes Overall: anterior cervical chain benign 05/13/2018 None Full Exam - General 1994 Lymphatic neck nodes Overall: posterior cervical chain benign 05/13/2018 None Full Exam - General 1994 Musculoskeletal head and neck Overall: head atraumatic 05/13/2018 None Full Exam - General 1994 Neurologic cranial nerves Overall: crainial nerves 2 - 12 grossly intact 05/13/2018 None Full Exam - General 1994 Psychiatric orientation/consciousness Overall: oriented to person, place and time 05/13/2018 None Full Exam - General 1994 Psychiatric mood and affect Mood: depressed 05/13/2018 None Full Exam - General 1994 Constitutional general appearance Overall: well developed 05/02/2018 None Full Exam - General 1994 Constitutional general appearance Overall: in no acute distress 05/02/2018 None Full Exam - General 1994 Constitutional general appearance Overall: well nourished 05/02/2018 None Full Exam - General 1994 Eyes conjunctiva /eyelids Overall: conjunctiva clear 05/02/2018 None Full Exam - General 1994 Eyes conjunctiva /eyelids Overall: cornea clear 05/02/2018 None Full Exam - General 1994 Eyes conjunctiva /eyelids Overall: eyelids normal 05/02/2018 None Full Exam - General 1994 Ears/Nose/Throat otoscopic exam Overall: external auditory canals clear 05/02/2018 None Full Exam - General 1994 Ears/Nose/Throat otoscopic exam Overall: tympanic membranes clear 05/02/2018 None Full Exam - General 1994 Ears/Nose/Throat lips/teeth/gingiva Overall: benign lips 05/02/2018 None Full Exam - General 1994 Ears/Nose/Throat oral cavity/pharynx/larynx Overall: oral mucosa clear 05/02/2018 None Full Exam - General 1994 Respiratory auscultation Overall: breath sounds clear bilaterally 05/02/2018 None Full Exam - General 1994 Respiratory respiratory effort/rhythm Overall: no retractions 05/02/2018 None Full Exam - General 1994 Respiratory respiratory effort/rhythm Overall: normal rate 05/02/2018 None Full Exam - General 1994 Cardiovascular auscultation of heart Overall: regular rate 05/02/2018 None Full Exam - General 1994 Cardiovascular auscultation of heart Overall: normal heart sounds 05/02/2018 None Full Exam - General 1994 Abdomen abdominal exam Overall: no tenderness 05/02/2018 None Full Exam - General 1994 Abdomen abdominal exam Overall: normal bowel sounds 05/02/2018 None Full Exam - General 1994 Lymphatic neck nodes Overall: anterior cervical chain benign 05/02/2018 None Full Exam - General 1994 Lymphatic neck nodes Overall: posterior cervical chain benign 05/02/2018 None Full Exam - General 1994 Musculoskeletal head and neck Overall: head atraumatic 05/02/2018 None Full Exam - General 1994 Neurologic cranial nerves Overall: crainial nerves 2 - 12 grossly intact 05/02/2018 None Full Exam - General 1994 Psychiatric orientation/consciousness Overall: oriented to person, place and time 05/02/2018 None Full Exam - General 1994 Psychiatric mood and affect Mood: depressed 05/02/2018 None Full Exam - General 1994 Constitutional general appearance Overall: well developed 04/29/2018 None Full Exam - General 1994 Constitutional general appearance Overall: in no acute distress 04/29/2018 None Full Exam - General 1994 Constitutional general appearance Overall: well nourished 04/29/2018 None Full Exam - General 1994 Eyes conjunctiva /eyelids Overall: conjunctiva clear 04/29/2018 None Full Exam - General 1994 Eyes conjunctiva /eyelids Overall: cornea clear 04/29/2018 None Full Exam - General 1994 Eyes conjunctiva /eyelids Overall: eyelids normal 04/29/2018 None Full Exam - General 1994 Ears/Nose/Throat otoscopic exam Overall: external auditory canals clear 04/29/2018 None Full Exam - General 1994 Ears/Nose/Throat otoscopic exam Overall: tympanic membranes clear 04/29/2018 None Full Exam - General 1994 Ears/Nose/Throat lips/teeth/gingiva Overall: benign lips 04/29/2018 None Full Exam - General 1994 Ears/Nose/Throat oral cavity/pharynx/larynx Overall: oral mucosa clear 04/29/2018 None Full Exam - General 1994 Respiratory auscultation Overall: breath sounds clear bilaterally 04/29/2018 None Full Exam - General 1994 Respiratory respiratory effort/rhythm Overall: no retractions 04/29/2018 None Full Exam - General 1994 Respiratory respiratory effort/rhythm Overall: normal rate 04/29/2018 None Full Exam - General 1994 Cardiovascular auscultation of heart Overall: regular rate 04/29/2018 None Full Exam - General 1994 Cardiovascular auscultation of heart Overall: normal heart sounds 04/29/2018 None Full Exam - General 1994 Abdomen abdominal exam Overall: no tenderness 04/29/2018 None Full Exam - General 1994 Abdomen abdominal exam Overall: normal bowel sounds 04/29/2018 None Full Exam - General 1994 Lymphatic neck nodes Overall: anterior cervical chain benign 04/29/2018 None Full Exam - General 1994 Lymphatic neck nodes Overall: posterior cervical chain benign 04/29/2018 None Full Exam - General 1994 Musculoskeletal head and neck Overall: head atraumatic 04/29/2018 None Full Exam - General 1994 Neurologic cranial nerves Overall: crainial nerves 2 - 12 grossly intact 04/29/2018 None Full Exam - General 1994 Psychiatric orientation/consciousness Overall: oriented to person, place and time 04/29/2018 None Full Exam - General 1994 Psychiatric mood and affect Mood: depressed 04/29/2018 None Full Exam - General 1994 Constitutional general appearance Overall: well developed 03/13/2018 None Full Exam - General 1994 Constitutional general appearance Overall: in no acute distress 03/13/2018 None Full Exam - General 1994 Constitutional general appearance Overall: well nourished 03/13/2018 None Full Exam - General 1994 Eyes conjunctiva /eyelids Overall: conjunctiva clear 03/13/2018 None Full Exam - General 1994 Eyes conjunctiva /eyelids Overall: cornea clear 03/13/2018 None Full Exam - General 1994 Eyes conjunctiva /eyelids Overall: eyelids normal 03/13/2018 None Full Exam - General 1994 Ears/Nose/Throat otoscopic exam Overall: external auditory canals clear 03/13/2018 None Full Exam - General 1994 Ears/Nose/Throat otoscopic exam Overall: tympanic membranes clear 03/13/2018 None Full Exam - General 1994 Ears/Nose/Throat lips/teeth/gingiva Overall: benign lips 03/13/2018 None Full Exam - General 1994 Ears/Nose/Throat oral cavity/pharynx/larynx Overall: oral mucosa clear 03/13/2018 None Full Exam - General 1994 Respiratory auscultation Overall: breath sounds clear bilaterally 03/13/2018 None Full Exam - General 1994 Respiratory respiratory effort/rhythm Overall: no retractions 03/13/2018 None Full Exam - General 1994 Respiratory respiratory effort/rhythm Overall: normal rate 03/13/2018 None Full Exam - General 1994 Cardiovascular auscultation of heart Overall: regular rate 03/13/2018 None Full Exam - General 1994 Cardiovascular auscultation of heart Overall: normal heart sounds 03/13/2018 None Full Exam - General 1994 Abdomen abdominal exam Overall: no tenderness 03/13/2018 None Full Exam - General 1994 Abdomen abdominal exam Overall: normal bowel sounds 03/13/2018 None Full Exam - General 1994 Lymphatic neck nodes Overall: anterior cervical chain benign 03/13/2018 None Full Exam - General 1994 Lymphatic neck nodes Overall: posterior cervical chain benign 03/13/2018 None Full Exam - General 1994 Musculoskeletal head and neck Overall: head atraumatic 03/13/2018 None Full Exam - General 1994 Neurologic cranial nerves Overall: crainial nerves 2 - 12 grossly intact 03/13/2018 None Full Exam - General 1994 Psychiatric orientation/consciousness Overall: oriented to person, place and time 03/13/2018 None Full Exam - General 1994 Psychiatric mood and affect Mood: depressed 03/13/2018 None Full Exam - General 1994 Constitutional general appearance Overall: well developed 03/07/2018 None Full Exam - General 1994 Constitutional general appearance Overall: in no acute distress 03/07/2018 None Full Exam - General 1994 Constitutional general appearance Overall: well nourished 03/07/2018 None Full Exam - General 1994 Eyes conjunctiva /eyelids Overall: conjunctiva clear 03/07/2018 None Full Exam - General 1994 Eyes conjunctiva /eyelids Overall: cornea clear 03/07/2018 None Full Exam - General 1994 Eyes conjunctiva /eyelids Overall: eyelids normal 03/07/2018 None Full Exam - General 1994 Ears/Nose/Throat otoscopic exam Overall: external auditory canals clear 03/07/2018 None Full Exam - General 1994 Ears/Nose/Throat otoscopic exam Overall: tympanic membranes clear 03/07/2018 None Full Exam - General 1994 Ears/Nose/Throat lips/teeth/gingiva Overall: benign lips 03/07/2018 None Full Exam - General 1994 Ears/Nose/Throat oral cavity/pharynx/larynx Overall: oral mucosa clear 03/07/2018 None Full Exam - General 1994 Respiratory auscultation Overall: breath sounds clear bilaterally 03/07/2018 None Full Exam - General 1994 Respiratory respiratory effort/rhythm Overall: no retractions 03/07/2018 None Full Exam - General 1994 Respiratory respiratory effort/rhythm Overall: normal rate 03/07/2018 None Full Exam - General 1994 Cardiovascular auscultation of heart Overall: regular rate 03/07/2018 None Full Exam - General 1994 Cardiovascular auscultation of heart Overall: normal heart sounds 03/07/2018 None Full Exam - General 1994 Abdomen abdominal exam Overall: no tenderness 03/07/2018 None Full Exam - General 1994 Abdomen abdominal exam Overall: normal bowel sounds 03/07/2018 None Full Exam - General 1994 Lymphatic neck nodes Overall: anterior cervical chain benign 03/07/2018 None Full Exam - General 1994 Lymphatic neck nodes Overall: posterior cervical chain benign 03/07/2018 None Full Exam - General 1994 Musculoskeletal head and neck Overall: head atraumatic 03/07/2018 None Full Exam - General 1994 Neurologic cranial nerves Overall: crainial nerves 2 - 12 grossly intact 03/07/2018 None Full Exam - General 1994 Psychiatric orientation/consciousness Overall: oriented to person, place and time 03/07/2018 None Full Exam - General 1994 Psychiatric mood and affect Mood: depressed 03/07/2018 None Full Exam - General 1994 Constitutional general appearance Overall: well developed 02/28/2018 None Full Exam - General 1994 Constitutional general appearance Overall: in no acute distress 02/28/2018 None Full Exam - General 1994 Constitutional general appearance Overall: well nourished 02/28/2018 None Full Exam - General 1994 Eyes conjunctiva /eyelids Overall: conjunctiva clear 02/28/2018 None Full Exam - General 1994 Eyes conjunctiva /eyelids Overall: cornea clear 02/28/2018 None Full Exam - General 1994 Eyes conjunctiva /eyelids Overall: eyelids normal 02/28/2018 None Full Exam - General 1994 Ears/Nose/Throat otoscopic exam Overall: external auditory canals clear 02/28/2018 None Full Exam - General 1994 Ears/Nose/Throat otoscopic exam Overall: tympanic membranes clear 02/28/2018 None Full Exam - General 1994 Ears/Nose/Throat lips/teeth/gingiva Overall: benign lips 02/28/2018 None Full Exam - General 1994 Ears/Nose/Throat oral cavity/pharynx/larynx Overall: oral mucosa clear 02/28/2018 None Full Exam - General 1994 Respiratory auscultation Overall: breath sounds clear bilaterally 02/28/2018 None Full Exam - General 1994 Respiratory respiratory effort/rhythm Overall: no retractions 02/28/2018 None Full Exam - General 1994 Respiratory respiratory effort/rhythm Overall: normal rate 02/28/2018 None Full Exam - General 1994 Cardiovascular auscultation of heart Overall: regular rate 02/28/2018 None Full Exam - General 1994 Cardiovascular auscultation of heart Overall: normal heart sounds 02/28/2018 None Full Exam - General 1994 Abdomen abdominal exam Overall: no tenderness 02/28/2018 None Full Exam - General 1994 Abdomen abdominal exam Overall: normal bowel sounds 02/28/2018 None Full Exam - General 1994 Lymphatic neck nodes Overall: anterior cervical chain benign 02/28/2018 None Full Exam - General 1994 Lymphatic neck nodes Overall: posterior cervical chain benign 02/28/2018 None Full Exam - General 1994 Musculoskeletal head and neck Overall: head atraumatic 02/28/2018 None Full Exam - General 1994 Neurologic cranial nerves Overall: crainial nerves 2 - 12 grossly intact 02/28/2018 None Full Exam - General 1994 Psychiatric orientation/consciousness Overall: oriented to person, place and time 02/28/2018 None Full Exam - General 1994 Psychiatric mood and affect Mood: depressed 02/28/2018 None Full Exam - General 1994 Constitutional general appearance Overall: well developed 02/13/2018 None Full Exam - General 1994 Constitutional general appearance Overall: in no acute distress 02/13/2018 None Full Exam - General 1994 Constitutional general appearance Overall: well nourished 02/13/2018 None Full Exam - General 1994 Eyes conjunctiva /eyelids Overall: conjunctiva clear 02/13/2018 None Full Exam - General 1994 Ears/Nose/Throat lips/teeth/gingiva Overall: benign lips 02/13/2018 None Full Exam - General 1994 Ears/Nose/Throat oral cavity/pharynx/larynx Overall: oral mucosa clear 02/13/2018 None Full Exam - General 1994 Respiratory auscultation Overall: breath sounds clear bilaterally 02/13/2018 None Full Exam - General 1994 Respiratory respiratory effort/rhythm Overall: no retractions 02/13/2018 None Full Exam - General 1994 Respiratory respiratory effort/rhythm Overall: normal rate 02/13/2018 None Full Exam - General 1994 Cardiovascular auscultation of heart Overall: regular rate 02/13/2018 None Full Exam - General 1994 Cardiovascular auscultation of heart Overall: normal heart sounds 02/13/2018 None Full Exam - General 1994 Abdomen abdominal exam Overall: no tenderness 02/13/2018 None Full Exam - General 1994 Abdomen abdominal exam Overall: normal bowel sounds 02/13/2018 None Full Exam - General 1994 Lymphatic neck nodes Overall: anterior cervical chain benign 02/13/2018 None Full Exam - General 1994 Lymphatic neck nodes Overall: posterior cervical chain benign 02/13/2018 None Full Exam - General 1994 Neurologic cranial nerves Overall: crainial nerves 2 - 12 grossly intact 02/13/2018 None Full Exam - General 1994 Psychiatric orientation/consciousness Overall: oriented to person, place and time 02/13/2018 None Full Exam - General 1994 Psychiatric mood and affect Overall: normal mood and affect 02/13/2018 None Full Exam - General 1994 Psychiatric appearance Overall: well-groomed, good eye contact 02/13/2018 None Full Exam - General 1994 Eyes conjunctiva /eyelids Overall: cornea clear 02/13/2018 None Full Exam - General 1994 Eyes conjunctiva /eyelids Overall: eyelids normal 02/13/2018 None Full Exam - General 1994 Ears/Nose/Throat otoscopic exam Overall: tympanic membranes clear 02/13/2018 None Full Exam - General 1994 Ears/Nose/Throat otoscopic exam Overall: external auditory canals clear 02/13/2018 None Full Exam - General 1994 Abdomen abdominal exam Lower quadrant: tender to palpation 02/13/2018 None Full Exam - General 1994 Abdomen abdominal exam Lower quadrant: dull pain 02/13/2018 None Full Exam - General 1994 Abdomen abdominal exam Lower quadrant: no guarding 02/13/2018 None Full Exam - General 1994 Abdomen abdominal exam Lower quadrant: no rebound tenderness 02/13/2018 None Full Exam - General 1994 Abdomen abdominal exam Lower quadrant: soft 02/13/2018 None Full Exam - General 1994 Abdomen abdominal exam Lower quadrant: non-tender to palpation 02/13/2018 None Full Exam - General 1994 Musculoskeletal head and neck Overall: head atraumatic 02/13/2018 None Full Exam - General 1994 Constitutional general appearance Overall: well developed 01/29/2018 None Full Exam - General 1994 Constitutional general appearance Overall: in no acute distress 01/29/2018 None Full Exam - General 1994 Constitutional general appearance Overall: well nourished 01/29/2018 None Full Exam - General 1994 Eyes conjunctiva /eyelids Overall: conjunctiva clear 01/29/2018 None Full Exam - General 1994 Eyes pupils and irises Overall: pupils equal, round, reactive to light and accomodation 01/29/2018 None Full Exam - General 1994 Ears/Nose/Throat lips/teeth/gingiva Overall: benign lips 01/29/2018 None Full Exam - General 1994 Ears/Nose/Throat oral cavity/pharynx/larynx Overall: oral mucosa clear 01/29/2018 None Full Exam - General 1994 Respiratory auscultation Overall: breath sounds clear bilaterally 01/29/2018 None Full Exam - General 1994 Respiratory respiratory effort/rhythm Overall: no retractions 01/29/2018 None Full Exam - General 1994 Respiratory respiratory effort/rhythm Overall: normal rate 01/29/2018 None Full Exam - General 1994 Cardiovascular auscultation of heart Overall: regular rate 01/29/2018 None Full Exam - General 1994 Cardiovascular auscultation of heart Overall: normal heart sounds 01/29/2018 None Full Exam - General 1994 Lymphatic neck nodes Overall: anterior cervical chain benign 01/29/2018 None Full Exam - General 1994 Lymphatic neck nodes Overall: posterior cervical chain benign 01/29/2018 None Full Exam - General 1994 Neurologic cranial nerves Overall: crainial nerves 2 - 12 grossly intact 01/29/2018 None Full Exam - General 1994 Psychiatric orientation/consciousness Overall: oriented to person, place and time 01/29/2018 None Full Exam - General 1994 Psychiatric mood and affect Overall: normal mood and affect 01/29/2018 None Full Exam - General 1994 Psychiatric appearance Overall: well-groomed, good eye contact 01/29/2018 None Full Exam - General 1994 Abdomen abdominal exam Overall: no tenderness 01/29/2018 None Full Exam - General 1994 Abdomen abdominal exam Overall: normal bowel sounds 01/29/2018 None Full Exam - General 1994 Integument inspection of skin Location: left foot 01/29/2018 ball of left foot -large thick callus with dried blood noted Full Exam - General 1994 Constitutional general [...] of skin Location: face 05/04/2017 patch left advent Full Exam - General 1994 Constitutional general [...] rate 01/20/2016 None Procedures Procedure Codes Date TRIAMCINOLONE ACET INJ NOS CPT-4: J3301 09/30/2018 THER/PROPH/DIAG INJ SC/IM CPT-4: 50787 09/11/2018 TRIAMCINOLONE ACET INJ NOS CPT-4: J3301 09/11/2018 IMMUNIZATION ADMIN CPT -4: 95577 07/22/2018 FLU VAC NO PRSV 4 MENA 3 YRS+ CPT-4: 71376 07/22/2018 TRIAMCINOLONE ACET INJ NOS CPT-4: J3301 06/28/2018 KETOROLAC TROMETHAMINE INJ CPT-4: J1885 05/02/2018 FLU VAC NO PRSV 4 MENA 3 YRS+ CPT-4: 69943 08/16/2017 IMMUNIZATION ADMIN CPT -4: 62982 08/16/2017 URINALYSIS NONAUTO W/O SCOPE CPT-4: 50055 06/21/2017 TRIAMCINOLONE ACET INJ NOS CPT-4: J3301 05/04/2017 THER/PROPH/DIAG INJ SC/IM CPT-4: 92811 05/04/2017 TRIAMCINOLONE ACET INJ NOS CPT-4: J3301 02/16/2017 ROCEPHIN, PER 250 MG CPT-4: J0696 02/16/2017 ROCEPHIN, PER 250 MG CPT-4: J0696 10/06/2016 URINALYSIS NONAUTO W/O SCOPE CPT-4: 20500 07/18/2016 TRIAMCINOLONE ACET INJ NOS CPT-4: J3301 01/20/2016 Vital Signs Date Vital 10/17/2018 Blood Pressure 1: 110/68 Code : 8480-6 BMI: 32.9 Code : 49895-8 Heart Rate 1 : 82 bpm Height: 6'2" SpO2: 97% Weight: 256 lbs 10/14/2018 Blood Pressure 1: 124/70 Code : 8480-6 BMI: 33.6 Code : 12348-0 Heart Rate 1 : 76 bpm Height: 6'2" SpO2: 99% Temperature: 36.3 (C) / 97.3 (F) Weight: 262 lbs 09/30/2018 Blood Pressure 1: 138/82 Code : 8480-6 BMI: 33.6 Code : 84367-6 Heart Rate 1 : 82 bpm Height: 6'2" SpO2: 98% Temperature: 36.3 (C) / 97.3 (F) Weight: 262 lbs 09/09/2018 Blood Pressure 1: 140/80 Code : 8480-6 BMI: 33.0 Code : 81437-4 Heart Rate 1 : 97 bpm Height: 6'2" SpO2: 93% Temperature: 36.8 (C) / 98.2 (F) Weight: 257 lbs 07/22/2018 Blood Pressure 1: 120/78 Code : 8480-6 BMI: 31.6 Code : 43074-8 Heart Rate 1 : 87 bpm Height: 6'2" SpO2: 98% Weight: 246 lbs 07/16/2018 Blood Pressure 1: 132/74 Code : 8480-6 BMI: 31.2 Code : 44696-9 Heart Rate 1 : 90 bpm Height: 6'2" SpO2: 96% Weight: 243 lbs 07/01/2018 Blood Pressure 1: 142/82 Code : 8480-6 BMI: 31.8 Code : 50911-1 Heart Rate 1 : 88 bpm Height: 6'2" SpO2: 98% Weight: 248 lbs 06/28/2018 Blood Pressure 1: 132/76 Code : 8480-6 BMI: 31.8 Code : 98205-4 Heart Rate 1 : 107 bpm Height: 6'2" SpO2: 98% Temperature: 37.9 (C) / 100.3 (F) Weight: 248 lbs 06/18/2018 Blood Pressure 1: 138/82 Code : 8480-6 BMI: 31.8 Code : 84371-6 Heart Rate 1 : 82 bpm Height: 6'2" SpO2: 97% Weight: 248 lbs 06/04/2018 Blood Pressure 1: 128/84 Code : 8480-6 BMI: 33.9 Code : 93110-0 Heart Rate 1 : 86 bpm Height: 6'2" SpO2: 95% Weight: 264 lbs 05/13/2018 Blood Pressure 1: 130/80 Code : 8480-6 BMI: 31.1 Code : 01034-6 Heart Rate 1 : 100 bpm Height: 6'2" SpO2: 94% Weight: 242 lbs 05/02/2018 Blood Pressure 1: 134/84 Code : 8480-6 BMI: 31.2 Code : 97871-3 Heart Rate 1 : 93 bpm Height: 6'2" SpO2: 98% Weight: 243 lbs 04/29/2018 Blood Pressure 1: 142/88 Code : 8480-6 BMI: 31.6 Code : 75871-4 Heart Rate 1 : 96 bpm Height: 6'2" SpO2: 96% Temperature: 36.7 (C) / 98.1 (F) Weight: 246 lbs 03/13/2018 Blood Pressure 1: 120/76 Code : 8480-6 BMI: 30.9 Code : 37680-1 Heart Rate 1 : 112 bpm Height: 6'2" SpO2: 97% Weight: 241 lbs 03/07/2018 Blood Pressure 1: 108/78 Code : 8480-6 BMI: 30.0 Code : 41527-7 Heart Rate 1 : 87 bpm Height: 6'2" SpO2: 98% Weight: 234 lbs 02/28/2018 Blood Pressure 1: 106/74 Code : 8480-6 BMI: 30.0 Code : 60068-8 Heart Rate 1 : 101 bpm Height: 6'2" SpO2: 98% Temperature: 36.4 (C) / 97.5 (F) Weight: 234 lbs 02/13/2018 Blood Pressure 1: 110/78 Code : 8480-6 BMI: 30.0 Code : 82473-2 Heart Rate 1 : 106 bpm Height: 6'2" SpO2: 98% Weight: 234 lbs 01/29/2018 Blood Pressure 1: 106/68 Code : 8480-6 BMI: 30.0 Code : 86887-3 Heart Rate 1 : 108 bpm Height: 6'2" SpO2: 98% Weight: 234 lbs 08/27/2017 Blood Pressure 1: 134/76 Code : 8480-6 Heart Rate 1: 98 bpm Height: SpO2: 97% Weight: 08/16/2017 Blood Pressure 1: 128/80 Code : 8480-6 BMI: 32.0 Code : 61295-0 Heart Rate 1 : 94 bpm Height: [...] Code : 8480-6 BMI: 31.8 Code : 87254-4 Heart Rate 1 : 102 bpm Height: [...] Code : 8480-6 BMI: 31.8 Code : 49771-3 Heart Rate 1 : 85 bpm Height: 6'2" SpO2: 96% Temperature: 36.6 (C) / 97.9 (F) Weight: 248 lbs 02/12/2017 Blood Pressure 1: 126/76 Code : 8480-6 BMI: 31.8 Code : 38600-7 Heart Rate 1 : 106 bpm Height: 6'2" SpO2: 91% Weight: 248 lbs 02/05/2017 Blood Pressure 1: 146/86 Code : 8480-6 BMI: 31.9 Code : 45694-7 Heart Rate 1 : 98 bpm Height: 6'2" SpO2: 87% Temperature: 36.7 (C) / 98.0 (F) Weight: 248 lbs 8 oz 01/29/2017 Blood Pressure 1: 132/84 Code : 8480-6 BMI: 31.8 Code : 45774-9 Heart Rate 1 : 83 bpm Height: 6'2" SpO2: 97% Weight: 248 lbs 10/13/2016 Blood Pressure 1: 128/72 Code : 8480-6 Heart Rate 1: 86 bpm SpO2: 94% 10/09/2016 Blood Pressure 1: 128/68 Code : 8480-6 Heart Rate 1: 136 bpm SpO2: 94% Temperature: 36.8 (C) / 98.2 (F) 10/06/2016 Blood Pressure 1: 140/80 Code : 8480-6 BMI: 32.1 Code : 86363-3 Heart Rate 1 : 94 bpm Height: 6'2" SpO2: 95% Weight: 250 lbs 07/18/2016 Blood Pressure 1: 128/86 Code : 8480-6 BMI: 32.1 Code : 34917-8 Heart Rate 1 : 89 bpm Height: 6'2" SpO2: 96% Weight: 250 lbs 06/22/2016 Blood Pressure 1: 118/70 Code : 8480-6 BMI: 32.1 Code : 98720-5 Heart Rate 1 : 70 bpm Height: 6'2" SpO2: 97% Weight: 250 lbs 05/23/2016 Blood Pressure 1: 128/80 Code : 8480-6 BMI: 32.1 Code : 92628-2 Heart Rate 1 : 76 bpm Height: 6'2" SpO2: 98% Weight: 250 lbs 05/15/2016 Blood Pressure 1: 110/90 Code : 8480-6 BMI: 31.3 Code : 65868-6 Heart Rate 1 : 111 bpm Height: 6'2" SpO2: 97% Temperature: 36.6 (C) / 97.8 (F) Weight: 244 lbs 01/20/2016 Blood Pressure 1: 128/76 Code : 8480-6 BMI: 33.0 Code : 70130-4 Heart Rate 1 : 103 bpm Height: 6'2" SpO2: 95% Weight: 257 lbs Functional Status No Functional Status data History of Present Illness Symptom Name Status Result Effective Date Notes Location on the right 10/17/2018 None Location in the throat 10/14/2018 None Quality productive None Onset and Resolution ongoing 10/14/2018 None Onset of Symptom 1 months ago 10/14/2018 None Pertinent Findings Denies chest discomfort 10/14/2018 None Pertinent Findings dyspnea 10/14/2018 None Pertinent Findings Denies fever 10/14/2018 None Significant Medications albuterol 10/14/2018 None Triggers no known associated factors 10/14/2018 None Limitation on Activities moderately limits activities 10/14/2018 None Frequency of Episodes increasing 10/14/2018 None Length of Episodes _ weeks 10/14/2018 None cough Location in the throat 09/30/2018 None cough Quality productive 09/30/2018 None cough Onset and Resolution sudden in onset 09/30/2018 None cough Pertinent Findings chest discomfort 09/30/2018 None cough Pertinent Findings Denies fever 09/30/2018 None cough Location in the throat 09/09/2018 None cough Quality dry 03/2018 None cough Onset and Resolution sudden in onset 09/09/2018 None cough Onset of Symptom 3 days ago 09/09/2018 None cough Frequency of Episodes hourly 09/09/2018 None cough Pertinent Findings chest discomfort 09/09/2018 None cough Pertinent Findings dyspnea 09/09/2018 None cough Pertinent Findings Denies fever 09/09/2018 None cough Triggers no known associated factors 09/09/2018 None cough Limitation on Activities moderately limits activities 09/09/2018 None diabetes mellitus Onset of Symptom onset as an adult 07/22/2018 None diabetes mellitus Quality insulin dependent 07/22/2018 None diabetes mellitus Significant Medications insulin 07/22/2018 None diabetes mellitus Alleviating Factors medication 07/22/2018 None diabetes mellitus Exacerbating Factors diet 07/22/2018 None diabetes mellitus Nutrition regular diet 07/22/2018 None diabetes mellitus Pertinent Findings Denies dizziness 07/22/2018 None hypertension Quality primary hypertension 07/22/2018 None hypertension Quality chronic 07/22/2018 None hypertension Onset and Resolution ongoing 07/22/2018 None hypertension Onset of Symptom during adulthood 07/22/2018 None hypertension Alleviating Factors medication 07/22/2018 None diabetes mellitus Quality chronic 07/22/2018 None diabetes mellitus Glucose monitoring fasting 07/22/2018 and as needed- 43 this morning diabetes mellitus Test results Pt checking blood glucose readings, did not bring results to clinic 07/22/2018 None hypertension Blood Pressure Values not checking blood pressure at home 07/22/2018 None hypertension Quality stable 07/22/2018 None insomnia Quality constant 07/16/2018 None insomnia Quality disrupted sleep 07/16/2018 None insomnia Onset and Resolution ongoing 07/16/2018 None insomnia Onset of Symptom 2 months ago 07/16/2018 None insomnia Severity mild 07/16/2018 None insomnia Frequency of Episodes increasing 07/16/2018 None insomnia Triggers no known associated factors 07/16/2018 None insomnia Pertinent Findings Denies depressed mood 07/16/2018 None insomnia Pertinent Findings Denies dizziness 07/16/2018 None insomnia Pertinent Findings Denies fever 07/16/2018 None cough Location in the lung 07/01/2018 None cough Quality improving 07/01/2018 None cough Location in the lung 06/28/2018 None cough Quality acute None cough Pertinent Findings dyspnea 06/28/2018 None cough Pertinent Findings Denies cyanosis 06/28/2018 None cough Pertinent Findings fever 06/28/2018 None diabetes mellitus Onset of Symptom onset as an adult 06/18/2018 None diabetes mellitus Quality insulin dependent 06/18/2018 None diabetes mellitus Significant Medications insulin 06/18/2018 None diabetes mellitus Alleviating Factors medication 06/18/2018 None diabetes mellitus Exacerbating Factors diet 06/18/2018 None diabetes mellitus Nutrition regular diet 06/18/2018 None diabetes mellitus Pertinent Findings Denies dehydration 06/18/2018 None diabetes mellitus Pertinent Findings dizziness 06/18/2018 improved diabetes mellitus Pertinent Findings Denies vomiting 06/18/2018 None Hospital Follow Up _ cardiac disease 06/18/2018 None Hospital Follow Up Pertinent Findings pain 06/18/2018 None Hospital Follow Up Pertinent Findings Denies fever 06/18/2018 None Hospital Follow Up _ infection 06/18/2018 None diabetes mellitus Quality insulin dependent 06/04/2018 None diabetes mellitus Significant Medications insulin 06/04/2018 None diabetes mellitus Alleviating Factors medication 06/04/2018 None diabetes mellitus Exacerbating Factors diet 06/04/2018 None diabetes mellitus Nutrition regular diet 06/04/2018 None diabetes mellitus Pertinent Findings Denies dehydration 06/04/2018 None diabetes mellitus Pertinent Findings dizziness 06/04/2018 improved diabetes mellitus Pertinent Findings Denies vomiting 06/04/2018 None diabetes mellitus Onset of Symptom onset as an adult 06/04/2018 None cough Location in the throat 06/04/2018 None cough Quality intermittent 06/04/2018 None cough Onset and Resolution ongoing 06/04/2018 None cough Onset of Symptom 2 weeks ago 06/04/2018 None cough Pertinent Findings Denies dyspnea 06/04/2018 None cough Pertinent Findings Denies fever 06/04/2018 None Hospital Follow Up _ cardiac disease 06/04/2018 None Hospital Follow Up Pertinent Findings pain 06/04/2018 None Hospital Follow Up Pertinent Findings Denies fever 06/04/2018 None arthralgias/myalgias Onset of Symptom abrupt in onset 05/13/2018 None arthralgias/myalgias Significant Medical Conditions diabetes 05/13/2018 None arthralgias/myalgias Triggers no known associated factors 05/13/2018 None arthralgias/myalgias Length of Episodes 2 weeks 05/13/2018 None arthralgias/myalgias Pertinent Findings Denies cough 05/13/2018 None arthralgias/myalgias Pertinent Findings Denies numbness 05/13/2018 None arthralgias/myalgias Pertinent Findings Denies pain at night 05/13/2018 None arthralgias/myalgias Onset of Symptom abrupt in onset 05/02/2018 None arthralgias/myalgias Triggers no known associated factors 05/02/2018 None arthralgias/myalgias Length of Episodes 5 days 05/02/2018 None arthralgias/myalgias Significant Medical Conditions diabetes 05/02/2018 None dizziness Quality acute 04/29/2018 None dizziness Onset and Resolution ongoing 04/29/2018 None dizziness Onset of Symptom _ days ago 04/29/2018 None dizziness Limitation on Activities does not limit activities 04/29/2018 None dizziness Frequency of Episodes increasing 04/29/2018 None dizziness Triggers no known associated factors 04/29/2018 None dizziness Pertinent Findings Denies cough 04/29/2018 None fatigue Limitation on Activities moderately limits activities 03/13/2018 None fatigue Limitation on Activities is incapacitating 03/13/2018 None fatigue Onset of Symptom 1+ months ago 03/13/2018 None fatigue Triggers no known associated factors 03/13/2018 None fatigue Quality acute 03/13/2018 None fatigue Onset and Resolution ongoing 03/13/2018 None diabetes mellitus Quality insulin dependent 03/13/2018 None diabetes mellitus Alleviating Factors medication 03/13/2018 None diabetes mellitus Exacerbating Factors diet 03/13/2018 None diabetes mellitus Pertinent Findings lethargy 03/13/2018 None diabetes mellitus Glucose monitoring daily 03/13/2018 None diabetes mellitus Test results Pt checking blood glucose readings, did not bring results to clinic 03/13/2018 None fatigue Pertinent Findings depressed mood 03/13/2018 None fatigue Pertinent Findings weakness 03/13/2018 None fatigue Limitation on Activities moderately limits activities 03/07/2018 None fatigue Limitation on Activities is incapacitating 03/07/2018 None fatigue Onset of Symptom 1+ months ago 03/07/2018 None fatigue Triggers no known associated factors 03/07/2018 None fatigue Quality acute 03/07/2018 None fatigue Onset and Resolution ongoing 03/07/2018 None diabetes mellitus Quality insulin dependent 03/07/2018 None diabetes mellitus Alleviating Factors medication 03/07/2018 None diabetes mellitus Exacerbating Factors diet 03/07/2018 None diabetes mellitus Test results Pt checking blood glucose at home, see scanned readings 2017 None diabetes mellitus Glucose monitoring daily 03/07/2018 None diabetes mellitus Pertinent Findings dizziness 03/07/2018 None diabetes mellitus Pertinent Findings lethargy 03/07/2018 None fatigue Limitation on Activities moderately limits activities 02/28/2018 None fatigue Limitation on Activities is incapacitating 02/28/2018 None fatigue Onset of Symptom 1 months ago 02/28/2018 None fatigue Triggers no known associated factors 02/28/2018 None fatigue Quality acute 02/28/2018 None fatigue Onset and Resolution ongoing 02/28/2018 None fatigue Limitation on Activities moderately limits activities 02/13/2018 None fatigue Onset of Symptom 2-3 weeks ago 02/13/2018 None fatigue Frequency of Episodes daily 02/13/2018 None fatigue Triggers no known associated factors 02/13/2018 None fatigue Quality acute 02/13/2018 None fatigue Onset and Resolution ongoing 02/13/2018 None sores Location-Major on the feet 01/29/2018 None sores Location-Extremities on the left heel 01/29/2018 None sores Location-Extremities on the left sole 01/29/2018 None sores Quality acute None sores Quality worsening 01/29/2018 None sores Onset of Symptom 2 weeks ago 01/29/2018 None sores Frequency of Episodes daily 01/29/2018 None fatigue Limitation on Activities moderately limits activities 01/29/2018 None fatigue Frequency of Episodes daily 01/29/2018 None fatigue Onset of Symptom 2-3 weeks ago 01/29/2018 None fatigue Triggers no known associated factors 01/29/2018 None fatigue Quality acute 01/29/2018 None fatigue Onset and Resolution ongoing 01/29/2018 None fatigue Limitation on Activities moderately limits [...] Codes Date EST. PATIENT, LEVEL III Diagnosis: Spontaneous ecchymoses[ICD10: R23.3] Diagnosis: Cellulitis of right lower limb[ICD10: L03.115] Diagnosis: Cellulitis of left lower limb[ICD10: L03.116] Madeline Ha MD, [facility] CPT-4: 46370 10/17/2018 ([id number]) 42023 EST. PATIENT, LEVEL III Diagnosis: Cough[ICD10: R05] Diagnosis: Acute bronchitis, unspecified[ICD10: J20.9] Melida Ha MD, [facility] CPT-4: 09435 10/14/2018 [id number] EST. PATIENT, LEVEL III Diagnosis: Acute laryngopharyngitis[ICD10: J06.0] Diagnosis: Cough[ICD10: R05] Madeline Ha MD, [facility] CPT-4: 86276 09/30/2018 ([id number]) 95317 EST. PATIENT, LEVEL III Diagnosis: Acute recurrent maxillary sinusitis[ICD10: J01.01] Diagnosis: Cough[ICD10: R05] Diagnosis: Type 2 diabetes mellitus with hyperglycemia[ICD10: E11.65] Marcela Ha MD, [facility] CPT-4: 98143 09/09/2018 ([id number]) 39603 EST. PATIENT, LEVEL IV Diagnosis: Essential (primary) hypertension[ICD10: I10] Diagnosis: Mixed hyperlipidemia[ICD10: E78.2] Diagnosis: Bipolar disorder, current episode depressed, moderate[ICD10: F31.32] Diagnosis: Type 2 diabetes mellitus with other specified complication[ICD10: E11.69] Melida Ha MD, [facility] CPT-4: 79147 2017 ([id number]) 60562 EST. PATIENT, LEVEL III Diagnosis: Insomnia due to medical condition[ICD10: G47.01] Marcela Ha MD, [facility] CPT-4: 32965 07/16/2018 ([id number]) Miscellaneous no charge Diagnosis: Cough[ICD10: R05] Madeline Ha MD, [facility] CPT-4: 59202 07/01/2018 [id number] EST. PATIENT, LEVEL III Diagnosis: Cough[ICD10: R05] Diagnosis: Acute laryngopharyngitis[ICD10: J06.0] Diagnosis: Other allergic rhinitis[ICD10: J30.89] Madeline Ha MD, [facility] CPT-4: 70214 06/28/2018 ([id number]) 91002 EST. PATIENT, LEVEL IV Diagnosis: Type 2 diabetes mellitus with hyperglycemia[ICD10: E11.65] Diagnosis: Essential (primary) hypertension[ICD10: I10] Melida Ha MD, [facility] CPT-4: 91667 06/18/2018 ([id number]) 56424 EST. PATIENT, LEVEL IV Diagnosis: Type 2 diabetes mellitus with hyperglycemia[ICD10: E11.65] Diagnosis: Essential (primary) hypertension[ICD10: I10] Diagnosis: Localized edema[ICD10: R60.0] Melida Ha MD, [facility] CPT- 4: 09886 06/04/2018 ([id number]) 72730 EST. PATIENT, LEVEL III Diagnosis: Type 2 diabetes mellitus with hyperglycemia[ICD10: E11.65] Diagnosis: Myalgia[ICD10: M79.1] Diagnosis: Pain in right hip[ICD10: M25.551] Diagnosis: Pain in left hip[ICD10: M25.552] Marcela Ha MD, [facility] CPT-4: 12347 05/13/2018 ([id number]) 08514 EST. PATIENT, LEVEL III Diagnosis: Myalgia[ICD10: M79.1] Diagnosis: Pain in right hip[ICD10: M25.551] Diagnosis: Pain in left hip[ICD10: M25.552] Marcela Ha MD, [facility] CPT-4: 35206 05/02/2018 ([id number]) 42374 EST. PATIENT, LEVEL IV Diagnosis: Essential (primary) hypertension[ICD10: I10] Diagnosis: Type 2 diabetes mellitus with hyperglycemia[ICD10: E11.65] Diagnosis: Major depressive disorder, single episode, moderate[ICD10: F32.1] Diagnosis: Myalgia[ICD10: M79.1] Marcela Ha MD, [facility] CPT-4: 53605 04/29/2018 ([id number]) 63611 EST. PATIENT, LEVEL IV Diagnosis: Type 2 diabetes mellitus with hyperglycemia[ICD10: E11.65] Diagnosis: Essential (primary) hypertension[ICD10: I10] Diagnosis: Major depressive disorder, single episode, moderate[ICD10: F32.1] Melida Ha MD, [facility] CPT-4: 27773 03/13/2018 ([id number]) 10984 EST. PATIENT, LEVEL III Diagnosis: Type 2 diabetes mellitus with hyperglycemia[ICD10: E11.65] Diagnosis: Bipolar disorder, current episode depressed, moderate[ICD10: F31.32] Diagnosis: Orthostatic hypotension[ICD10: I95.1] Marcela Ha MD, [facility] CPT-4: 52192 03/07/2018 ([id number]) 54590 EST. PATIENT, LEVEL IV Diagnosis: Type 2 diabetes mellitus with hyperglycemia[ICD10: E11.65] Diagnosis: Major depressive disorder, single episode, moderate[ICD10: F32.1] Diagnosis: Orthostatic hypotension[ICD10: I95.1] Diagnosis: Other fatigue[ICD10: R53.83] Marcela Ha MD, [facility] CPT-4: 34944 02/28/2018 [id number] EST. PATIENT, LEVEL IV Diagnosis: Other fatigue[ICD10: R53.83] Diagnosis: Other malaise[ICD10: R53.81] Diagnosis: Gastro-esophageal reflux disease without esophagitis[ICD10: K21.9] Madeline Ha MD, [facility] CPT-4: 97166 02/13/2018 ([id number]) 49412 EST. PATIENT, LEVEL IV Diagnosis: Type 2 diabetes mellitus with foot ulcer[ICD10: E11.621] Diagnosis: Essential (primary) hypertension[ICD10: I10] Diagnosis: Gastro-esophageal reflux disease without esophagitis[ICD10: K21.9] Marcela Ha MD, [facility] CPT-4: 97175 01/29/2018 00479 EST. PATIENT, LEVEL III Diagnosis: Other malaise[ICD10: R53.81] Diagnosis: Other fatigue[ICD10: R53.83] Diagnosis: Pain in right shoulder[ICD10: M25.511] Diagnosis: Pain in left shoulder[ICD10: M25.512] Madeline Ha MD, [facility] CPT-4: 36545 08/27/2017 ([id number]) 62775 EST. PATIENT, LEVEL IV Diagnosis: Essential (primary) hypertension[ICD10: I10] Diagnosis: Type 2 diabetes mellitus with hyperglycemia[ICD10: E11.65] Diagnosis: VACCIN FOR INFLUENZA[ICD10: Z23] Melida Ha MD, [facility] CPT-4: 46780 08/16/2017 [id number] EST. PATIENT, LEVEL III Diagnosis: Zoster without complications[ICD10: B02.9] Madeline Ha MD, [facility] CPT-4: 44523 07/26/2017 ([id number]) 31304 EST. PATIENT, LEVEL III Diagnosis: Cellulitis of right lower limb[ICD10: L03.115] Marcela Ha MD, [facility] CPT-4: 20698 07/03/2017 58613 EST. PATIENT, LEVEL II Diagnosis: Laceration without foreign body of left forearm, initial encounter[ ICD10: S51.812A] Marcela Ha MD, [facility] CPT-4: 74714 06/29/2017 ([id number]) 99602 EST. PATIENT, LEVEL III Diagnosis: Cellulitis of right lower limb[ICD10: L03.115] Diagnosis: Type 2 diabetes mellitus with foot ulcer[ICD10: E11.621] Marcela Ha MD , [facility] CPT-4: 54644 06/18/2017 ([id number]) 62751 EST. PATIENT, LEVEL IV Diagnosis: Cellulitis of right lower limb[ICD10: L03.115] Diagnosis: Acute laryngopharyngitis[ICD10: J06.0] Diagnosis: Gastro-esophageal reflux disease without esophagitis[ICD10: K21.9] Marcela Ha MD, [facility] CPT-4: 20826 06/07/2017 ([id number]) 15333 EST. PATIENT, LEVEL III Diagnosis: Type 2 diabetes mellitus with hyperglycemia[ICD10: E11.65] Diagnosis: Insect bite (nonvenomous) of abdominal wall, initial encounter[ICD10 : S30.861A] Marcela Ha MD, [facility] CPT-4: 45248 05/17/2017 ([id number]) 16448 EST. PATIENT, LEVEL III Diagnosis: Allergic contact dermatitis due to plants, except food[ICD10: L23.7] Melida Ha MD, [facility] CPT-4: 86527 05/04/2017 ([id number]) 87433 EST. PATIENT, LEVEL III Diagnosis: Essential (primary) hypertension[ICD10: I10] Marcela Ha MD, [facility] CPT-4: 93316 03/15/2017 ([id number]) 55711 EST. PATIENT, LEVEL III Diagnosis: Cough[ICD10: R05] Diagnosis: Essential (primary) hypertension[ICD10: I10] Marcela Ha MD, [facility] CPT-4: 15687 03/01/2017 ([id number]) 99428 EST. PATIENT, LEVEL III Diagnosis: Cough[ICD10: R05] Diagnosis: Nasal congestion[ICD10: R09.81] Diagnosis: Acute recurrent maxillary sinusitis[ICD10: J01.01] Marcela Ha MD, [facility] CPT-4: 08262 02/16/2017 ([id number]) 89022 EST. PATIENT, LEVEL III Diagnosis: Type 2 diabetes mellitus with hyperglycemia[ICD10: E11.65] Marcela Ha MD, [facility] CPT-4: 11521 02/12/2017 ([id number]) 35764 EST. PATIENT, LEVEL IV Diagnosis: Type 2 diabetes mellitus with hyperglycemia[ICD10: E11.65] Diagnosis: Muscle weakness (generalized)[ICD10: M62.81] Diagnosis: Disorientation, unspecified[ICD10: R41.0] Marcela Ha MD, [facility] CPT-4: 97888 02/05/2017 ([id number]) Patient admitted to the hospital from clinic (NO CHARGE) Diagnosis: Type 2 diabetes mellitus with hyperglycemia[ICD10: E11.65] Diagnosis: Disorientation, unspecified[ICD10: R41.0] Diagnosis: Muscle weakness (generalized)[ICD10: M62.81] Marcela Ha MD, [facility] CPT-4: 04336L 01/29/2017 ([id number]) Miscellaneous no charge Diagnosis: Cellulitis of right lower limb[ICD10: L03.115] Marcela Ha MD [facility] CPT-4: 53224 10/13/2016 ([id number]) Miscellaneous no charge Diagnosis: Type 2 diabetes mellitus with foot ulcer[ICD10: E11.621] Diagnosis: Pain in right foot[ICD10: M79.671] Marcela Ha MD, [facility] CPT-4: 77088 10/09/2016 22711 EST. PATIENT, LEVEL II Diagnosis: Cellulitis of right lower limb[ICD10: L03.115] Marcela Ha MD [facility] CPT-4: 74033 10/06/2016 ([id number]) 76180 EST. PATIENT, LEVEL IV Diagnosis: Low back pain[ICD10: M54.5] Diagnosis: Other deformities of toe(s) (acquired), left foot[ICD10: M20.5X2] Diagnosis: Type 2 diabetes mellitus with foot ulcer[ICD10: E11.621] Marcela Ha MD , [facility] CPT-4: 50540 07/18/2016 ([id number]) 05252 EST. PATIENT, LEVEL III Diagnosis: Type 2 diabetes mellitus with hyperglycemia[ICD10: E11.65] Marcela Ha MD, [facility] CPT-4: 00926 06/22/2016 ([id number]) 73333 EST. PATIENT, LEVEL IV Diagnosis: Type 2 diabetes mellitus with hyperglycemia[ICD10: E11.65] Diagnosis: Mixed hyperlipidemia[ICD10: E78.2] Diagnosis: Other hemoglobinopathies[ICD10: D58.2] [facility] CPT-4: 48362 05/23/2016 [id number]) 71254 EST. PATIENT, LEVEL IV Diagnosis: Type 2 diabetes mellitus with other specified complication[ICD10: E11.69] Diagnosis: Dehydration[ICD10: E86.0] Marcela Ha MD, [facility] CPT-4: 21799 05/15/2016 ([id number]) OFFICE VISIT, NEW - LEVEL 3 Diagnosis: Allergic contact dermatitis due to plants, except food[ICD10: L23.7] Madeline Ha MD, [facility] CPT-4: 64072 01/20/2016 Plan of Care Planned Activity Notes Codes Status Date Visit Plan: Mild ecchymosis with faint erythema - pt is to continue his levaquin that was previously prescribed - The patient was instructed in appropriate wound care. The patient was instructed to use the antibiotic as per RX. The patient is to call for any change in symptoms, increase in size of the lesion, increase in pain, worsening redness, warmth, discharge. 10/17/2018 Patient Education: Patient Medication Summary Completed 10/17/2018 Visit Plan: Bronchitis - acute case of bronchitis identified. Pt has been given antibiotics, breathing treatments as appropriate, and pt has been instructed to call if symptoms are not improved, or if symptoms acutely worsen. 10/14/2018 Visit Plan: Bronchitis - acute case of bronchitis identified. Pt has been given antibiotics, breathing treatments as appropriate, and pt has been instructed to call if symptoms are not improved, or if symptoms acutely worsen. 10/14/2018 Appointment: Marcela Oshea WPtel: [address] [place], [place] [phone] (15 min) Moderate 10/14/2018 Patient Education: Patient Medication Summary Completed 10/14/2018 Care Plan: CHEST X-RAY 2VW FRONTAL&LATL LOINC : 77349-5 Pending 10/14/2018 Visit Plan: URI - Pt advised to increase fluids, vitamin C. Discussed natural and expected course of this diagnosis and need to alert me if symptoms do not follow expected course, or if any worse. RX sent to patient' s pharmacy. Allergies - chronic - recommended pt to use allergy medication as prescribed. Pt has been counseled as to the appropriate use of the medication. Pt to call if allergy symptoms are not controlled with the medication. If using nasal spray, instructions as follows: Nasal spray- use twice daily, one spray per nostril twice daily, after 30 minutes, rinse out nose with saline spray.. Use opposite hand per nostril to spray in the nasal steroid allergy spray. 09/30/2018 Appointment: Madeline Kennedy WPtel: [id number] (15 min) Moderate 09/30/2018 Patient Education: Patient Medication Summary Completed 09/30/2018 Appointment: Nurse Visit 09/12/2018 Appointment: Injection 09/11/2018 Patient Education: Patient Medication Summary Completed 09/11/2018 Visit Plan: Sinusitis - Pt has acute infection - pain in face, maxillary region, Pt informed to use decongestant, RX given to patient, sinus rinses also recommended. Call if symptoms do not show improvement. DM- check Hgb A1C 09/09/2018 Appointment: Marcela Oshea WPtel: [address] [place] [address] (15 min) Moderate 09/09/2018 Patient Education: Patient Medication Summary Completed 09/09/2018 Patient Education: Patient Medication Summary Completed 09/06/2018 Patient Education: Cholesterol Management Completed 09/06/2018 Care Plan: Comp Metabolic Pending 09/06/2018 Care Plan: Cbc With Differential Pending 09/06/2018 Care Plan: %Hba1C LOINC : 03283-4 Pending 09/06/2018 Care Plan: Tsh Pending 09/06/2018 Care Plan: Lipid Pending 09/06/2018 Appointment: Marcela Oshea WPtel: [address] [place], [place] [phone] (15 min) Moderate 08/26/2018 Appointment: Marcela Oshea WPtel: [address] [place], [place] [phone] (15 min) Moderate 08/23/2018 Visit Plan: Hypertension - well controlled - continue with current medications, continue with no added salt diet. Pt has been encouraged to exercise daily. The pt has been advised to call the office if there are any acute concerns about change in blood pressure readings at home. Diabetes Mellitus - controlled - per recent FSBS reports. I have recommended for the patient to have follow up labs prior to the next office visit. The patient has been instructed to continue with current medications as previously directed, continue with regular FSBS monitoring to assure continued control of diabetes. Pt to call for any acute concerns, complaints, or if the blood glucose readings are starting to become less controlled. Hyperlipidemia - pt has been counseled about appropriate diet, exercise, and need for low fat food choices. I have discussed the need for the patient to take medications as prescribed. If the patient has negative side effects from the medication, they are to CALL the office and not abruptly discontinue the medication without discussion with a practitioner in the office. We will check labs in 3-6 months for follow up on the patient's chronic medical problem and to assure normal liver response to medications. Bipolar Mood disorder - supportive care and continue with Cymbalta. Flu shot given today in clinic. 07/22/2018 Appointment: Melida Ha WPtel: [phone] [phone] (15 min) Moderate 07/22/2018 Patient Education: Patient Medication Summary Completed 07/22/2018 Patient Education: Cholesterol Management Completed 07/22/2018 Visit Plan: Insomnia - Pt has been advised to increase the light in the house during the day, and start dimming the lights during the evening hours. Pt has been advised to cut out caffeine after 5pm. Daytime napping worsens night time insomnia. 07/16/2018 Appointment: Marcela Oshea WPtel: [phone] [phone] (30 min) Complex 07/16/2018 Patient Education: Patient Medication Summary Completed 07/16/2018 Visit Plan: cough - improved - notify clinic if symptoms do not completely resolve, or with any questions or concerns. 07/01/2018 Appointment: Madeline Kennedy WPtel: [phone] [facility] [place] (15 min) Moderate 07/01/2018 Patient Education: Patient Medication Summary Completed 07/01/2018 Visit Plan: URI - Pt advised to increase fluids, vitamin C. Discussed natural and expected course of this diagnosis and need to alert me if symptoms do not follow expected course, or if any worse. RX sent to patient' s pharmacy. Allergies - chronic - recommended pt to use allergy medication as prescribed. Pt has been counseled as to the appropriate use of the medication. Pt to call if allergy symptoms are not controlled with the medication. If using nasal spray, instructions as follows: Nasal spray- use twice daily, one spray per nostril twice daily, after 30 minutes, rinse out nose with saline spray.. Use opposite hand per nostril to spray in the nasal steroid allergy spray. 06/28/2018 Visit Plan: URI - Pt advised to increase fluids, vitamin C. Discussed natural and expected course of this diagnosis and need to alert me if symptoms do not follow expected course, or if any worse. RX sent to patient' s pharmacy. Allergies - chronic - recommended pt to use allergy medication as prescribed. Pt has been counseled as to the appropriate use of the medication. Pt to call if allergy symptoms are not controlled with the medication. If using nasal spray, instructions as follows: Nasal spray- use twice daily, one spray per nostril twice daily, after 30 minutes, rinse out nose with saline spray.. Use opposite hand per nostril to spray in the nasal steroid allergy spray. 06/28/2018 Appointment: Madeline Kennedy WPtel: [facility] (15 min) Moderate 06/28/2018 Patient Education: Patient Medication Summary Completed 06/28/2018 Patient Education: Patient Medication Summary Completed 06/21/2018 Care Plan: Annabel RICKS [place] Pending 06/21/2018 Visit Plan: Diabetes Mellitus - controlled - per recent FSBS reports. I have recommended for the patient to have follow up labs prior to the next office visit. The patient has been instructed to continue with current medications as previously directed, continue with regular FSBS monitoring to assure continued control of diabetes. Pt to call for any acute concerns, complaints, or if the blood glucose readings are starting to become less controlled. Hypertension - well controlled - continue with current medications, continue with no added salt diet. Pt has been encouraged to exercise daily. The pt has been advised to call the office if there are any acute concerns about change in blood pressure readings at home. 06/18/2018 Appointment: Melida Ha WPtel: [facility] [place] (15 min) Moderate 06/18/2018 Patient Education: Patient Medication Summary Completed 06/18/2018 Appointment: Nurse Visit 06/10/2018 Visit Plan: Diabetes Mellitus - controlled - per recent FSBS reports. I have recommended for the patient to have follow up labs prior to the next office visit. The patient has been instructed to continue with current medications as previously directed, continue with regular FSBS monitoring to assure continued control of diabetes. Pt to call for any acute concerns, complaints, or if the blood glucose readings are starting to become less controlled. Hypertension - well controlled - continue with current medications, continue with no added salt diet. Pt has been encouraged to exercise daily. The pt has been advised to call the office if there are any acute concerns about change in blood pressure readings at home. Edema - pt has been advised to elevate legs to prevent dependent edema, compression has been recommended to help to naturally decrease peripheral edema. Diuretic use has been discussed and pt has been instructed in appropriate use of such medication as necessary to further attempt to reduce peripheral edema. Lasix 20mg three times a week x 2 wks and may then decrease dose as swelling improves. 06/04/2018 Appointment: Melida Ha [facility]Ptel: [phone] [place] (15 min) Moderate 06/04/2018 Patient Education: Patient Medication Summary Completed 06/04/2018 Visit Plan: Diabetes Mellitus - Uncontrolled - The patient has been instructed to continue with current medications as previously directed , continue with regular FSBS monitoring to assure continued control of diabetes. Pt to call for any acute concerns, complaints, or if the blood glucose readings are starting to become less controlled. I have recommended for the patient to follow more strictly to the diabetic diet as discussed in clinic to allow for greater blood glucose control. Joint chit-imorwpcl-dfrtqkv- symptoms have improved -stop meloxicam due to upset stomach-call if symptoms return 05/13/2018 Appointment: Marcela Oshea WPtel: [phone] [place] (30 min) Complex 05/13/2018 Patient Education: Patient Medication Summary Completed 05/13/2018 Visit Plan: Bilateral hip uvol-uazbmfnf-djcqcgu IM injection administered today for c/o continued myalgia/arthralgia. Patient to start taking Meloxicam 15mg PO daily. Advised to return to clinic if symptoms do not improve. 05/02/2018 Appointment: Marcela Oshea WPtel: [facility]5 [phone] (30 min) Complex 05/02/2018 Patient Education: Patient Medication Summary Completed 05/02/2018 Patient Education: Patient Medication Summary Completed 05/01/2018 Visit Plan: Hypertension - well controlled - continue with current medications, continue with no added salt diet. Pt has been encouraged to exercise daily. The pt has been advised to call the office if there are any acute concerns about change in blood pressure readings at home. Diabetes Mellitus -check labs Pbhrjkwc-eykjger-odff bite-rx for doxycycline-follow up in 2 weeks 04/29/2018 Appointment: Marcela Oshea WPtel: [facility]5 [phone] (15 min) Moderate 04/29/2018 Patient Education: Patient Medication Summary Completed 04/29/2018 Appointment: Melida Ha WPtel: [facility]5 [facility] (15 min) Moderate 04/15/2018 Appointment: Marcela Oshea WPtel: [facility]5 [phone] (30 min) Complex 03/21/2018 Visit Plan: Hypertension - well controlled - continue with current medications, continue with no added salt diet. Pt has been encouraged to exercise daily. The pt has been advised to call the office if there are any acute concerns about change in blood pressure readings at home. Diabetes Mellitus - Uncontrolled - per recent FSBS reports. I have recommended for the patient to have follow up labs prior to the next office visit. The patient has been instructed to continue with current medications as previously directed, continue with regular FSBS monitoring to assure continued control of diabetes. Pt to call for any acute concerns, complaints, or if the blood glucose readings are starting to become less controlled. I have recommended for the patient to follow more strictly to the diabetic diet as discussed in clinic to allow for greater blood glucose control. Increase toujeo to 40 units daily. Depression - stop Vraylar and start on cymbalta 03/13/2018 Appointment: Melida Ha WPtel: [phone] (30 min) Complex 03/13/2018 Patient Education: Patient Medication Summary Completed 03/13/2018 Visit Plan: DM-continue same medications-monitor blood sugars routinely as directed -rx for new glucometer and test strips provided Bipolar-currently depressed-patient start on vraylar-follow up in 2 weeks, sooner if needed. Patient and verbalied understanding of plan. Hypotension- stay off losartan 03/07/2018 Appointment: Marcela Oshea WPtel: [phone] [phone] [place] (30 min) Complex 03/07/2018 Patient Education: Patient Medication Summary Completed 03/07/2018 Appointment: Melida Ha WPtel: [phone] [phone] (15 min) Moderate 03/04/2018 Visit Plan: Hypotension-continue to hold losartan-monitor blood pressure Fatigue-check UA Diabetes Mellitus - very uncontrolled-patient is noncompliant with treatment-stopped insulin on his own and did not notify the office and is not checking blood sugars. I have recommended for the patient to have follow up labs today. The patient has been instructed to start medications as directed, start with regular FSBS monitoring and follow up in 1 week. Pt to call for any acute concerns, complaints, or if the blood glucose readings are starting to become less controlled. I have recommended for the patient to follow more strictly to the diabetic diet as discussed in clinic to allow for greater blood glucose control. Depression - uncontrolled - Pt has been counseled about the diagnosis of depression, the potential causes, and risks associated with the diagnosis. The pt denies suicidal ideation, or plans. The patient has been counseled about treatment options, and understands the risks associated with treatment of depression, as well as the risks associated with NOT treating the depression. I believe the pt will benefit from medical intervention and an antidepressant has been appropriately prescribed for this patient. 02/28/2018 Appointment: Marcela Oshea WPtel: [phone] [phone] [place] (30 min) Complex 02/28/2018 Patient Education: Patient Medication Summary Completed 02/28/2018 Visit Plan: Fatigue, Malaise - pt states that he had labs drawn at the end of January - will call for labs and treat as indicated - pt is to stop his statin medication and is to start co enzyme Q10. He is to increase his fluid intake and notify clinic if symptoms do not improve. Esophageal Reflux - the patient has been counseled against excessive intake of caffeine, spicy foods, peppermint, and cinnamon - all of which can exacerbate esophageal reflux. The patient is to take medications as prescribed and call the office if the symptoms are not improving. 02/13/2018 Appointment: Madeline Kennedy WPtel: [phone] [facility] [place] (15 min) Moderate 02/13/2018 Patient Education: Patient Medication Summary Completed 02/13/2018 Referral: Sun Glynn Patient informed. Referral info faxed. Completed Visit Plan: DM-weight loss-not checking blood sugars- patient sent for labs today HTN-low atizl-isdbaoq-swgdl labs Callus of foot and fissue of heel-refer to Dr Glynn for evaluation Esophageal Reflux - the patient has been counseled against excessive intake of caffeine, spicy foods, peppermint , and cinnamon - all of which can exacerbate esophageal reflux. The patient is to take medications as prescribed and call the office if the symptoms are not improving. 01/29/2018 Appointment: Marcela Oshea WPtel: [phone] [place] (30 min) Complex 01/29/2018 Patient Education: Patient Medication Summary Completed 01/29/2018 Care Plan: Comp Metabolic Cancelled 01/29/2018 Care Plan: Cbc With Differential Cancelled 01/29/2018 Care Plan: %Hba1C LOINC : 35933-3 Cancelled 01/29/2018 Care Plan: Referral Order SNOMED-CT : [id number] Cancelled 01/29/2018 Visit Plan: Fatigue, malaise, joint pains - pt states that he has been outside and in areas where he would be exposed to ticks. He states that all of his joints ache - will check labs, and treat as indicated. Pt is to notify clinic if symptoms do not improve, if they worsen, or with any changes, questions, or concerns. 08/27/2017 Appointment: Madeline Kennedy WPtel: [facility]6 [facility] (15 min) Moderate 08/27/2017 Patient Education: Patient Medication Summary Completed 08/27/2017 Visit Plan: Hypertension - well controlled - continue with current medications, continue with no added salt diet. Pt has been encouraged to exercise daily. The pt has been advised to call the office if there are any acute concerns about change in blood pressure readings at home. Diabetes Mellitus - controlled - per recent FSBS reports. I have recommended for the patient to have follow up labs prior to the next office visit. The patient has been instructed to continue with current medications as previously directed, continue with regular FSBS monitoring to assure continued control of diabetes. Pt to call for any acute concerns, complaints, or if the blood glucose readings are starting to become less controlled. check HgbA1c flu shot today - 08/16/2017 Appointment: Melida Ha WPtel: [facility]6 [phone] (30 min) Complex 08/16/2017 Patient Education: Patient Medication Summary Completed 08/16/2017 Patient Education: Obesity Completed 08/16/2017 Appointment: Madeline Kennedy WPtel: [facility]6 [facility] (30 min) Complex 08/07/2017 Visit Plan: Shingles - Herpes Zoster - acute in onset - pt started on acyclovir and instructed to call if symptoms worsen or if the pt is concerned about the symptoms. Pt has been advised to avoid contact with persons who may be , or infants, or immunocompromised individuals. Pt has been instructed that shingles will continue to break out and eventually scab over a two week period, until all of the vesicles are scabbed, the pt is to be considered contagious. 07/26/2017 Appointment: Madeline Kennedy WPtel: [facility]7 [facility] (15 min) Moderate 07/26/2017 Patient Education: Patient Medication Summary Completed 07/26/2017 Visit Plan: Cellulitis right foot-cultured today in the office-home health to reapply wound vac--appt with wound care on to evaluate for debridement- 07/03/2017 Appointment: Marcela Oshea WPtel: [address] [place], [place] [phone] (30 min) Complex 07/03/2017 Patient Education: Patient Medication Summary Completed 07/03/2017 Visit Plan: Abrasion left arm - Pt was instructed to keep the wound clean, wash with antibacterial soap, use triple antibiotic ointment, call if redness, pustular drainage, or any other acute concerns. 06/29/2017 Appointment: Marcela Oshea WPtel: [address] [place], [place] [phone] (15 min) Moderate 06/29/2017 Patient Education: Patient Medication Summary Completed 06/29/2017 Appointment: Lab Draw 06/21/2017 Patient Education: Patient Medication Summary Completed 06/21/2017 Visit Plan: Cellulitis-right foot wound-post op resection of first metatarsal head-finished one week of cipro-cultured wound again today in the office-will do levaquin daily until culture is back-dressing changes today in the office-will refer to wound care-needs dressings to help with extra moisture. Patient verbalized understanding of plan. 06/18/2017 Appointment: Marcela Oshea WPtel: [address] [place], [place] [phone] (15 min) Moderate 06/18/2017 Patient Education: Patient Medication Summary Completed 06/18/2017 Visit Plan: Cellulitis - culture of wound today-start abx and directed, call for acute change in symptoms, worsening redness, warmth, discharge. Sore throat-strep swab-chloraseptic spray-add prilosec twice daily for acid reflux symptoms GERD-low spice, low fat diet-start prilosec 06/07/2017 Visit Plan: Cellulitis - culture of wound today-start abx and directed, call for acute change in symptoms, worsening redness, warmth, discharge. Sore throat-strep swab-chloraseptic spray-add prilosec twice daily for acid reflux symptoms GERD-low spice, low fat diet-start prilosec 06/07/2017 Appointment: Marcela Oshea WPtel: [facility]5 [phone] (10 min) Simple 06/07/2017 Patient Education: Patient Medication Summary Completed 06/07/2017 Visit Plan: Diabetes Mellitus - Hgb A1C down to 9.5% from 10.7% in January and 12.5% last May-no medication changes today-will repeat labs in 3 months and adjust medications at that time. I have recommended for the patient to have follow up labs prior to the next office visit. The patient has been instructed to continue with current medications as previously directed, continue with regular FSBS monitoring to assure continued control of diabetes. Pt to call for any acute concerns, complaints, or if the blood glucose readings are starting to become less controlled. I have recommended for the patient to follow more strictly to the diabetic diet as discussed in clinic to allow for greater blood glucose control. Tick bite-continue doxycycline 05/17/2017 Appointment: Marcela Oshea WPtel: [facility]6 [phone] (30 min) Complex 05/17/2017 Patient Education: Patient Medication Summary Completed 05/17/2017 Patient Education: Obesity Completed 05/17/2017 Visit Plan: Poison Jana - pt is to use topical treatments as directed. Pt is cleanse clothing in hot water with soap, and call if symptoms do not improve or if they worsen. Kenalog injection today in the office -monitor blood sugars closely over the next 2-3 days-use calamine as directed- call if you want blue minesh called into [facility]. 05/04/2017 Appointment: Marcela Oshea WPtel: [phone] [phone] (30 min) Complex 05/04/2017 Patient Education: Patient Medication Summary Completed 05/04/2017 Visit Plan: Hypertension - well controlled - continue with current medications, continue with no added salt diet. Pt has been encouraged to exercise daily. The pt has been advised to call the office if there are any acute concerns about change in blood pressure readings at home. Cough-resolved 03/15/2017 Appointment: Marcela Oshea WPtel: [phone] [phone] [place] (15 min) Moderate 03/15/2017 Patient Education: Patient Medication Summary Completed 03/15/2017 Appointment: Marcela Oshea WPtel: [phone] [phone] (30 min) Complex 03/12/2017 Visit Plan: Feng inhibitor induced cough-stop lisinopril- start losartan as directed-monitor symptoms and follow up in 2 weeks-monitor blood pressure at home and call with any questions or concerns. Patient verbalized understanding of plan. 03/01/2017 Patient Education: Patient Medication Summary Completed 03/01/2017 Visit Plan: Influenza - influenza B positive-pt started on tamiflu - pt to start on anti-inflammatories, tylenol and monitor symptoms. Pt to call if not improving. Pt to alert any close contacts as to illness. Sinusitis-kenalog and rocephin injections today in the office-monitor symptoms and call if symptoms do not resolve-start augmentin if needed as discussed 02/16/2017 Appointment: Marcela Oshea WPtel: [facility]4 [phone] [place] (15 min) Moderate 02/16/2017 Patient Education: Patient Medication Summary Completed 02/16/2017 Visit Plan: Diabetes Mellitus - I have recommended for the patient to have follow up labs prior to the next office visit. The patient has been instructed to continue with current medications as previously directed, continue with regular FSBS monitoring to assure continued control of diabetes. Pt to call for any acute concerns, complaints, or if the blood glucose readings are starting to become less controlled. 02/12/2017 Appointment: Marcela Oshea WPtel: [facility]4 [phone] [place] (30 min) Complex 02/12/2017 Patient Education: Patient Medication Summary Completed 02/12/2017 Appointment: Marcela Oshea WPtel: [phone] [place] (30 min) Complex 02/06/2017 Visit Plan: Diabetes Mellitus -patient noncompliant-he is now taking his insulin but is not checking his blood sugars- I have recommended for the patient to have follow up labs prior to the next office visit. The patient has been instructed to continue with current medications as previously directed, START regular FSBS monitoring to assure continued control of diabetes. Pt to call for any acute concerns, complaints, or if the blood glucose readings are starting to become less controlled. Confusion-resolved- continue to monitor Generalized weakness-refer for PT-patient refuses today but will consider 02/05/2017 Appointment: Marcela Oshea WPtel: [facility]1 [phone] (30 min) Complex 02/05/2017 Patient Education: Patient Medication Summary Completed 02/05/2017 Appointment: Marcela Oshea WPtel: [facility]7 [phone] [place] (30 min) Complex 01/30/2017 Visit Plan: Acute confusion-uncontrolled diabetes- chronically noncompliant with treatment and stopped his insulin several months ago-r/o stroke vs DKA-Dr Ha in to evaluate patient-plan to admit for further work up and treatment-patient's called and she transported him to the hospital 01/29/2017 Appointment: Marcela Oshea WPtel: [facility]1 [phone] [place] (30 min) Complex 01/29/2017 Patient Education: Patient Medication Summary Completed 01/29/2017 Patient Education: Obesity Completed 01/29/2017 Visit Plan: Right foot pain-MRI shows foreign body-appt with Dr Grewal for evaluation on Sunday. 10/13/2016 Appointment: Marcela Oshea WPtel: [facility]2 [phone] [place] (15 min) Moderate 10/13/2016 Patient Education: Patient Medication Summary Completed 10/13/2016 Appointment: Marcela Oshea WPtel: [facility]6 [phone] [place] (30 min) Complex 10/12/2016 Visit Plan: Right foot nqul-bybfsdci-tfdtv washer dropped on foot-xray negative but pain continues to increase-recommend MRI of foot for further evaluation-refer to wound care for lesions on right foot, patient has diabetes and history of osteomyelitis-culture obtained today-continue oral abx- follow up in the office on , sooner if needed 10/09/2016 Visit Plan: Right foot bqff-juketrqv-oticn washer dropped on foot-xray negative but pain continues to increase-recommend MRI of foot for further evaluation-refer to wound care for lesions on right foot, patient has diabetes and history of osteomyelitis-culture obtained today-continue oral abx- follow up in the office on , sooner if needed 10/09/2016 Visit Plan: Right foot xnfu-msigeetb-tctgq washer dropped on foot-xray negative but pain continues to increase-recommend MRI of foot for further evaluation-refer to wound care for lesions on right foot, patient has diabetes and history of osteomyelitis-culture obtained today-continue oral abx- follow up in the office on , sooner if needed 10/09/2016 Appointment: Marcela Oshea WPtel: [phone] (30 min) Complex 10/09/2016 Patient Education: Patient Medication Summary Completed 10/09/2016 Visit Plan: Cellulitis - continue with oral antibiotics as previously directed, return to clinic as previously directed, call for acute change in symptoms, worsening redness, warmth, discharge. 10/06/2016 Appointment: Marcela Oshea WPtel: [phone] (10 min) Simple 10/06/2016 Patient Education: Patient Medication Summary Completed 10/06/2016 Appointment: Marcela Oshea WPtel: [phone] (30 min) Complex 08/24/2016 Referral: Sun Glynn Referral Completed 07/21/2016 Visit Plan: Low back pain- history of spinal fusion- patient for xray lumbar spine-RX sent to [facility] and instructed on use-topical voltaren samples provided and instructed on use. Ok to use tylenol as needed as well. The patient is to call the office if the pain is worsening or does not improve. Pressure ulcer left 4th toe-refer to Dr Glynn for evaluation 07/18/2016 Appointment: Marcela Oshea WPtel: [phone] [phone] (30 min) Complex 07/18/2016 Patient Education: Patient Medication Summary Completed 07/18/2016 Patient Education: Obesity Completed 07/18/2016 Care Plan: Referral Order SNOMED-CT : [id number] Cancelled 07/18/2016 Visit Plan: Diabetes Mellitus - I have recommended for the patient to have follow up labs prior to the next office visit. The patient has been instructed to continue with current medications as previously directed, continue with regular FSBS monitoring to assure continued control of diabetes. Pt to call for any acute concerns, complaints, or if the blood glucose readings are starting to become less controlled. I have recommended for the patient to follow more strictly to the diabetic diet as discussed in clinic to allow for greater blood glucose control. 06/22/2016 Appointment: Marcel[facility] Oshea WPtel: [phone] [place] [phone] (30 min) Complex 06/22/2016 Patient Education: Patient Medication Summary Completed 06/22/2016 Patient Education: Obesity Completed 06/22/2016 Visit Plan: Hyperlipidemia - pt has been counseled about appropriate diet, exercise, and need for low fat food choices. I have discussed the need for the patient to take medications as prescribed. If the patient has negative side effects from the medication, they are to CALL the office and not abruptly discontinue the medication without discussion with a practitioner in the office. We will check labs in 3-6 months for follow up on the patient's chronic medical problem and to assure normal liver response to medications. Diabetes Mellitus - Uncontrolled - per recent FSBS reports. I have recommended for the patient to have follow up labs prior to the next office visit. The patient has been instructed to continue with current medications as previously directed, continue with regular FSBS monitoring to assure continued control of diabetes. Pt to call for any acute concerns, complaints, or if the blood glucose readings are starting to become less controlled. I have recommended for the patient to follow more strictly to the diabetic diet as discussed in clinic to allow for greater blood glucose control. Elevated Hgb-check CBC today 05/23/2016 Appointment: Marcela Oshea WPtel: [phone] [facility] [phone] (30 min) Complex 05/23/2016 Patient Education: Patient Medication Summary Completed 05/23/2016 Patient Education: Obesity Completed 05/23/2016 Patient Education: Patient Medication Summary Completed 05/17/2016 Patient Education: Patient Medication Summary Completed 05/17/2016 Care Plan: Cbc With Differential Cancelled 05/17/2016 Visit Plan: Diabetes Mellitus - Uncontrolled - I have recommended for the patient to have follow up labs prior to the next office visit. The patient has been instructed to continue with current medications as previously directed, continue with regular FSBS monitoring to assure continued control of diabetes. Pt to call for any acute concerns, complaints, or if the blood glucose readings are starting to become less controlled. I have recommended for the patient to follow more strictly to the diabetic diet as discussed in clinic to allow for greater blood glucose control. Dehydration- discussed oral rehydration vs IV fluid replacement-will start with oral rehydration-check labs and proceed as indicated-instructed patient to call the office if symptoms do not improve or if any worse. Patient verbalized understanding of plan. 05/15/2016 Appointment: Marcela Oshea WPtel: [phone] [phone] (15 min) Moderate 05/15/2016 Patient Education: Patient Medication Summary Completed 05/15/2016 Patient Education: Obesity Completed 05/15/2016 Visit Plan: Poison Jana - pt is to use topical treatments as directed. Pt is cleanse clothing in hot water with soap, and call if symptoms do not improve or if they worsen. 01/20/2016 Patient Education: Patient Medication Summary Completed 01/20/2016 Patient Education: Obesity Completed 01/20/2016 Referral: Sun Glynn Referral Initiated Referral: Sun Glynn Referral Appointment Requested Instructions Comment . Right foot pain-MRI shows foreign body-appt with Dr Grewal for evaluation on Sunday. . Poison Jana - pt is to use topical treatments as directed. Pt is cleanse clothing in hot water with soap, and call if symptoms do not improve or if they worsen. . Diabetes Mellitus - controlled - per recent FSBS reports. I have recommended for the patient to have follow up labs prior to the next office visit. The patient has been instructed to continue with current medications as previously directed, continue with regular FSBS monitoring to assure continued control of diabetes. Pt to call for any acute concerns, complaints, or if the blood glucose readings are starting to become less controlled. Hypertension - well controlled - continue with current medications, continue with no added salt diet. Pt has been encouraged to exercise daily. The pt has been advised to call the office if there are any acute concerns about change in blood pressure readings at home. steroid shot today flonase and mucinex over the counter nausea medication as needed . URI - Pt advised to increase fluids, vitamin C. Discussed natural and expected course of this diagnosis and need to alert me if symptoms do not follow expected course, or if any worse. RX sent to patient's pharmacy. Allergies - chronic - recommended pt to use allergy medication as prescribed. Pt has been counseled as to the appropriate use of the medication. Pt to call if allergy symptoms are not controlled with the medication. If using nasal spray, instructions as follows: Nasal spray- use twice daily, one spray per nostril twice daily, after 30 minutes, rinse out nose with saline spray.. Use opposite hand per nostril to spray in the nasal steroid allergy spray. steroid shot today flonase and mucinex over the counter nausea medication as needed . URI - Pt advised to increase fluids, vitamin C. Discussed natural and expected course of this diagnosis and need to alert me if symptoms do not follow expected course, or if any worse. RX sent to patient's pharmacy. Allergies - chronic - recommended pt to use allergy medication as prescribed. Pt has been counseled as to the appropriate use of the medication. Pt to call if allergy symptoms are not controlled with the medication. If using nasal spray, instructions as follows: Nasal spray- use twice daily, one spray per nostril twice daily, after 30 minutes, rinse out nose with saline spray.. Use opposite hand per nostril to spray in the nasal steroid allergy spray. . Mild ecchymosis with faint erythema - pt is to continue his levaquin that was previously prescribed - The patient was instructed in appropriate wound care. The patient was instructed to use the antibiotic as per RX. The patient is to call for any change in symptoms, increase in size of the lesion, increase in pain, worsening redness, warmth, discharge. REPEAT CBC Toujeo 10 units daily . Hyperlipidemia - pt has been counseled about appropriate diet, exercise, and need for low fat food choices. I have discussed the need for the patient to take medications as prescribed. If the patient has negative side effects from the medication, they are to CALL the office and not abruptly discontinue the medication without discussion with a practitioner in the office. We will check labs in 3-6 months for follow up on the patient's chronic medical problem and to assure normal liver response to medications. Diabetes Mellitus - Uncontrolled - per recent FSBS reports. I have recommended for the patient to have follow up labs prior to the next office visit. The patient has been instructed to continue with current medications as previously directed, continue with regular FSBS monitoring to assure continued control of diabetes. Pt to call for any acute concerns, complaints, or if the blood glucose readings are starting to become less controlled. I have recommended for the patient to follow more strictly to the diabetic diet as discussed in clinic to allow for greater blood glucose control. Elevated Hgb-check CBC today sputum culture chest xray levaquin 500mg daily . Bronchitis - acute case of bronchitis identified. Pt has been given antibiotics, breathing treatments as appropriate, and pt has been instructed to call if symptoms are not improved, or if symptoms acutely worsen. sputum culture chest xray levaquin 500mg daily . Bronchitis - acute case of bronchitis identified. Pt has been given antibiotics, breathing treatments as appropriate, and pt has been instructed to call if symptoms are not improved, or if symptoms acutely worsen. stop the vraylar start on cymbalta 30mg daily increase the toujeo to 40 units daily. . Hypertension - well controlled - continue with current medications, continue with no added salt diet. Pt has been encouraged to exercise daily. The pt has been advised to call the office if there are any acute concerns about change in blood pressure readings at home. Diabetes Mellitus - Uncontrolled - per recent FSBS reports. I have recommended for the patient to have follow up labs prior to the next office visit. The patient has been instructed to continue with current medications as previously directed, continue with regular FSBS monitoring to assure continued control of diabetes. Pt to call for any acute concerns, complaints, or if the blood glucose readings are starting to become less controlled. I have recommended for the patient to follow more strictly to the diabetic diet as discussed in clinic to allow for greater blood glucose control. Increase toujeo to 40 units daily. Depression - stop Vraylar and start on cymbalta levaquin re-culture wound refer to wound care . Cellulitis-right foot wound-post op resection of first metatarsal head- finished one week of cipro-cultured wound again today in the office-will do levaquin daily until culture is back-dressing changes today in the office-will refer to wound care-needs dressings to help with extra moisture. Patient verbalized understanding of plan. TOUJEO 25 UNITS DAILY. NOTIFY CLINIC IF BLOOD SUGARS ARE READING HIGH IN THE NEXT FEW WEEKS. . Diabetes Mellitus - I have recommended for the patient to have follow up labs prior to the next office visit. The patient has been instructed to continue with current medications as previously directed, continue with regular FSBS monitoring to assure continued control of diabetes. Pt to call for any acute concerns, complaints, or if the blood glucose readings are starting to become less controlled. . Cellulitis right foot-cultured today in the office-home health to reapply wound vac--appt with wound care on to evaluate for debridement- . Diabetes Mellitus - I have recommended for the patient to have follow up labs prior to the next office visit. The patient has been instructed to continue with current medications as previously directed, continue with regular FSBS monitoring to assure continued control of diabetes. Pt to call for any acute concerns, complaints, or if the blood glucose readings are starting to become less controlled. I have recommended for the patient to follow more strictly to the diabetic diet as discussed in clinic to allow for greater blood glucose control. breathing treatments 3 times a day x 2 days, twice a day x 2 days. then as needed steroid shot today. URI - Pt advised to increase fluids, vitamin C. Discussed natural and expected course of this diagnosis and need to alert me if symptoms do not follow expected course, or if any worse. RX sent to patient's pharmacy. Allergies - chronic - recommended pt to use allergy medication as prescribed. Pt has been counseled as to the appropriate use of the medication. Pt to call if allergy symptoms are not controlled with the medication. If using nasal spray, instructions as follows: Nasal spray- use twice daily, one spray per nostril twice daily, after 30 minutes, rinse out nose with saline spray.. Use opposite hand per nostril to spray in the nasal steroid allergy spray. REPEAT LABS BEFORE YOUR NEXT APPOINTMENT IN 3 MONTHS . Diabetes Mellitus - Hgb A1C down to 9.5% from 10.7% in January and 12.5% last May -no medication changes today-will repeat labs in 3 months and adjust medications at that time. I have recommended for the patient to have follow up labs prior to the next office visit. The patient has been instructed to continue with current medications as previously directed, continue with regular FSBS monitoring to assure continued control of diabetes. Pt to call for any acute concerns, complaints, or if the blood glucose readings are starting to become less controlled. I have recommended for the patient to follow more strictly to the diabetic diet as discussed in clinic to allow for greater blood glucose control. Tick bite-continue doxycycline . Poison Jana - pt is to use topical treatments as directed. Pt is cleanse clothing in hot water with soap, and call if symptoms do not improve or if they worsen. Kenalog injection today in the office-monitor blood sugars closely over the next 2-3 days-use calamine as directed-call if you want blue goo called into [facility]. 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 Low back pain- history of spinal fusion-patient for xray lumbar spine-RX sent to [facility] and instructed on use-topical voltaren samples provided and instructed on use. Ok to use tylenol as needed as well. The patient is to call the office if the pain is worsening or does not improve. Pressure ulcer left 4th toe-refer to Dr Glynn for evaluation . Abrasion left arm - Pt was instructed to keep the wound clean, wash with antibacterial soap, use triple antibiotic ointment, call if redness, pustular drainage, or any other acute concerns. . Hypertension - well controlled - continue with current medications, continue with no added salt diet. Pt has been encouraged to exercise daily. The pt has been advised to call the office if there are any acute concerns about change in blood pressure readings at home. Diabetes Mellitus - controlled - per recent FSBS reports. I have recommended for the patient to have follow up labs prior to the next office visit. The patient has been instructed to continue with current medications as previously directed, continue with regular FSBS monitoring to assure continued control of diabetes. Pt to call for any acute concerns, complaints, or if the blood glucose readings are starting to become less controlled. check HgbA1c flu shot today - . cough - improved - notify clinic if symptoms do not completely resolve, or with any questions or concerns. continue oral antibiotic start using topical antibiotic ointment to scabbed areas and cover with dressing follow up , sooner if needed refer to wound care mri left foot due to increased pain -concern for fracture from injury . Right foot mahc-fwkxzkxy-jzdfs washer dropped on foot-xray negative but pain continues to increase-recommend MRI of foot for further evaluation-refer to wound care for lesions on right foot, patient has diabetes and history of osteomyelitis-culture obtained today-continue oral abx-follow up in the office on , sooner if needed continue oral antibiotic start using topical antibiotic ointment to scabbed areas and cover with dressing follow up , sooner if needed refer to wound care mri left foot due to increased pain -concern for fracture from injury . Right foot zgfb-lsqlbuug-yfsxt washer dropped on foot-xray negative but pain continues to increase-recommend MRI of foot for further evaluation-refer to wound care for lesions on right foot, patient has diabetes and history of osteomyelitis-culture obtained today-continue oral abx-follow up in the office on , sooner if needed continue oral antibiotic start using topical antibiotic ointment to scabbed areas and cover with dressing follow up , sooner if needed refer to wound care mri left foot due to increased pain -concern for fracture from injury . Right foot eamm-wmpuluzd-rjcbu washer dropped on foot-xray negative but pain continues to increase-recommend MRI of foot for further evaluation-refer to wound care for lesions on right foot, patient has diabetes and history of osteomyelitis-culture obtained today-continue oral abx-follow up in the office on , sooner if needed . Bilateral hip rjga-pvvtpzdr-ejwckxi IM injection administered today for c/o continued myalgia/arthralgia. Patient to start taking Meloxicam 15mg PO daily. Advised to return to clinic if symptoms do not improve. . DM-weight loss-not checking blood sugars-patient sent for labs today HTN-low mordv-xhlszai-bypea labs Callus of foot and fissue of heel-refer to Dr Glynn for evaluation Esophageal Reflux - the patient has been counseled against excessive intake of caffeine, spicy foods, peppermint, and cinnamon - all of which can exacerbate esophageal reflux. The patient is to take medications as prescribed and call the office if the symptoms are not improving. START CHECKING BLOOD SUGARS . Diabetes Mellitus -patient noncompliant-he is now taking his insulin but is not checking his blood sugars- I have recommended for the patient to have follow up labs prior to the next office visit. The patient has been instructed to continue with current medications as previously directed, START regular FSBS monitoring to assure continued control of diabetes. Pt to call for any acute concerns, complaints, or if the blood glucose readings are starting to become less controlled. Axpkkbnwl-qzixubpq-lcoydzdg to monitor Generalized weakness-refer for PT-patient refuses today but will consider . Hypertension - well controlled - continue with current medications, continue with no added salt diet. Pt has been encouraged to exercise daily. The pt has been advised to call the office if there are any acute concerns about change in blood pressure readings at home. Cough-resolved STAY OFF LOSARTAN AND CHOLESTEROL MEDICATION FOR NOW . DM- continue same medications-monitor blood sugars routinely as directed -rx for new glucometer and test strips provided Bipolar-currently depressed-patient start on vraylar-follow up in 2 weeks, sooner if needed. Patient and verbalied understanding of plan. Hypotension-stay off losartan STOP MELOXICAM CONTINUE LYRICA 50 UNITS TOUJEO DAILY . Diabetes Mellitus - Uncontrolled - The patient has been instructed to continue with current medications as previously directed, continue with regular FSBS monitoring to assure continued control of diabetes. Pt to call for any acute concerns, complaints, or if the blood glucose readings are starting to become less controlled. I have recommended for the patient to follow more strictly to the diabetic diet as discussed in clinic to allow for greater blood glucose control. Joint dbgn-fnloxfmq-hjmdcgj-symptoms have improved -stop meloxicam due to upset stomach-call if symptoms return culture of right foot strep swab prilosec over the counter twice daily keflex 500mg three times daily x 7 days . Cellulitis - culture of wound today-start abx and directed, call for acute change in symptoms, worsening redness, warmth, discharge. Sore throat-strep swab-chloraseptic spray-add prilosec twice daily for acid reflux symptoms GERD-low spice, low fat diet-start prilosec culture of right foot strep swab prilosec over the counter twice daily keflex 500mg three times daily x 7 days . Cellulitis - culture of wound today-start abx and directed, call for acute change in symptoms, worsening redness, warmth, discharge. Sore throat-strep swab-chloraseptic spray-add prilosec twice daily for acid reflux symptoms GERD-low spice, low fat diet-start prilosec . Diabetes Mellitus - controlled - per recent FSBS reports. I have recommended for the patient to have follow up labs prior to the next office visit. The patient has been instructed to continue with current medications as previously directed, continue with regular FSBS monitoring to assure continued control of diabetes. Pt to call for any acute concerns, complaints, or if the blood glucose readings are starting to become less controlled. Hypertension - well controlled - continue with current medications, continue with no added salt diet. Pt has been encouraged to exercise daily. The pt has been advised to call the office if there are any acute concerns about change in blood pressure readings at home. Edema - pt has been advised to elevate legs to prevent dependent edema, compression has been recommended to help to naturally decrease peripheral edema. Diuretic use has been discussed and pt has been instructed in appropriate use of such medication as necessary to further attempt to reduce peripheral edema. Lasix 20mg three times a week x 2 wks and may then decrease dose as swelling improves. . Acute confusion-uncontrolled diabetes-chronically noncompliant with treatment and stopped his insulin several months ago-r/o stroke vs DKA-Dr Ha in to evaluate patient-plan to admit for further work up and treatment-patient's called and she transported him to the hospital decrease novolog to 8 units at meals. . Hypertension - well controlled - continue with current medications, continue with no added salt diet. Pt has been encouraged to exercise daily. The pt has been advised to call the office if there are any acute concerns about change in blood pressure readings at home. Diabetes Mellitus - controlled - per recent FSBS reports. I have recommended for the patient to have follow up labs prior to the next office visit. The patient has been instructed to continue with current medications as previously directed, continue with regular FSBS monitoring to assure continued control of diabetes. Pt to call for any acute concerns, complaints, or if the blood glucose readings are starting to become less controlled. Hyperlipidemia - pt has been counseled about appropriate diet, exercise, and need for low fat food choices. I have discussed the need for the patient to take medications as prescribed. If the patient has negative side effects from the medication, they are to CALL the office and not abruptly discontinue the medication without discussion with a practitioner in the office. We will check labs in 3-6 months for follow up on the patient's chronic medical problem and to assure normal liver response to medications. Bipolar Mood disorder - supportive care and continue with Cymbalta. Flu shot given today in clinic. STOP LISINOPRIL DUE TO COUGH -START LOSARTAN 25MG DAILY . Feng inhibitor induced cough-stop lisinopril-start losartan as directed- monitor symptoms and follow up in 2 weeks-monitor blood pressure at home and call with any questions or concerns. Patient verbalized understanding of plan. RECOMMEND PROBIOTICS TWICE DAILY FLU SWAB ROCEPHIN AND KENALOG INJECTION TODAY IN THE OFFICE FLONASE NASAL SPRAY 1 SPRAY EACH NARE DAILY . Influenza - influenza B positive-pt started on tamiflu - pt to start on anti- inflammatories, tylenol and monitor symptoms. Pt to call if not improving. Pt to alert any close contacts as to illness. Sinusitis-kenalog and rocephin injections today in the office-monitor symptoms and call if symptoms do not resolve-start augmentin if needed as discussed Stop the atorvastatin (lipitor) - start Co enzyme Q10 over the counter Use RML . Fatigue, Malaise - pt states that he had labs drawn at the end of January - will call for labs and treat as indicated - pt is to stop his statin medication and is to start co enzyme Q10. He is to increase his fluid intake and notify clinic if symptoms do not improve. Esophageal Reflux - the patient has been counseled against excessive intake of caffeine, spicy foods, peppermint, and cinnamon - all of which can exacerbate esophageal reflux. The patient is to take medications as prescribed and call the office if the symptoms are not improving. . Insomnia - Pt has been advised to increase the light in the house during the day, and start dimming the lights during the evening hours. Pt has been advised to cut out caffeine after 5pm. Daytime napping worsens night time insomnia. INCREASE FLUIDS-RECOMMEND G2 GATORADE-CHECK LABS TODAY IF NOT BETTER TOMORROW, WE WILL HAVE TO DO IV FLUIDS . Diabetes Mellitus - Uncontrolled - I have recommended for the patient to have follow up labs prior to the next office visit. The patient has been instructed to continue with current medications as previously directed, continue with regular FSBS monitoring to assure continued control of diabetes. Pt to call for any acute concerns, complaints, or if the blood glucose readings are starting to become less controlled. I have recommended for the patient to follow more strictly to the diabetic diet as discussed in clinic to allow for greater blood glucose control. Dehydration-discussed oral rehydration vs IV fluid replacement-will start with oral rehydration-check labs and proceed as indicated-instructed patient to call the office if symptoms do not improve or if any worse. Patient verbalized understanding of plan. doxycycline 100mg twice daily follow up in 2 weeks, sooner if needed . Hypertension - well controlled - continue with current medications, continue with no added salt diet. Pt has been encouraged to exercise daily. The pt has been advised to call the office if there are any acute concerns about change in blood pressure readings at home. Diabetes Mellitus -check labs [id number] bite-rx for doxycycline-follow up in 2 weeks . Fatigue, malaise, joint pains - pt states that he has been outside and in areas where he would be exposed to ticks. He states that all of his joints ache - will check labs, and treat as indicated. Pt is to notify clinic if symptoms do not improve, if they worsen, or with any changes, questions, or concerns. . Cellulitis - continue with oral antibiotics as previously directed, return to clinic as previously directed, call for acute change in symptoms, worsening redness, warmth, discharge. . Shingles - Herpes Zoster - acute in onset - pt started on acyclovir and instructed to call if symptoms worsen or if the pt is concerned about the symptoms. Pt has been advised to avoid contact with persons who may be , or infants, or immunocompromised individuals. Pt has been instructed that shingles will continue to break out and eventually scab over a two week period, until all of the vesicles are scabbed, the pt is to be considered contagious. TOUJEO 20 UNITS DAILY MONITOR BLOOD SUGARS AND BRING IN LOG LEXAPRO 10MG DAILY CBC, CMP, UA WITH C&S if indicated . Hypotension-continue to hold losartan-monitor blood pressure Fatigue-check UA Diabetes Mellitus - very uncontrolled-patient is noncompliant with treatment- stopped insulin on his own and did not notify the office and is not checking blood sugars. I have recommended for the patient to have follow up labs today. The patient has been instructed to start medications as directed, start with regular FSBS monitoring and follow up in 1 week. Pt to call for any acute concerns, complaints, or if the blood glucose readings are starting to become less controlled. I have recommended for the patient to follow more strictly to the diabetic diet as discussed in clinic to allow for greater blood glucose control. Depression - uncontrolled - Pt has been counseled about the diagnosis of depression, the potential causes, and risks associated with the diagnosis. The pt denies suicidal ideation, or plans. The patient has been counseled about treatment options, and understands the risks associated with treatment of depression, as well as the risks associated with NOT treating the depression. I believe the pt will benefit from medical intervention and an antidepressant has been appropriately prescribed for this patient. . Sinusitis - Pt has acute infection - pain in face, maxillary region, Pt informed to use decongestant, RX given to patient, sinus rinses also recommended. Call if symptoms do not show improvement. DM-check Hgb A1C
--- OUTSIDE RECORDS SUMMARY | 2018-10-20 10:45 | XMS REPORT | CCD ---
Author Author Madeline Kennedy MD, [facility] Address [address] [place] [address] Phone Care Team Providers Care Sign Designer Name Role Phone PP Unavailable CCM Unavailable Summary Purpose Interface Exchange Insurance Providers Payer name Policy type / Coverage type Covered republican ID Effective Begin Date Effective End Date Blue Cross Blue Shield [facility] Blue Cross/Blue Shield [id number] Unknown Family history Father Diagnosis Age At Onset Hyperlipidemia Unknown Heart Attack Unknown Mother Diagnosis Age At Onset Hypertension Unknown Social History Social History Element Codes Description Effective Dates Marital status Unknown Mignon 01/20/2016 Number of children Unknown 4 01/20/2016 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/[address]: 679703531 Never smoker 01/20/[address]: 101171546 Never drinks alcohol 01/20/2016 Allergies, Adverse Reactions, Alerts Substance Reaction Codes Entered Date Inactivated Date Status * NO KNOWN DRUG ALLERGIES Unknown 05/23/2016 No Inactive Date Active Past Medical History Illness Codes Condition Status Onset Date Resolved Date Acute bronchitis, unspecified ICD-9: 466.0 ICD-10: J20.9 [...] Problems Condition Codes Effective Dates Condition Status Acute bronchitis, unspecified ICD-9: 466.0 ICD-10: J20.9 [...] Start Date Stop Date Status Fill Instructions albuterol sulfate 2.5 mg/3 mL (0.083 %) solution for nebulization RxNorm: 738206 3 Milliliter(s) INH UD 10/14/2018 No Stop Date Active Levaquin 500 mg tablet RxNorm: 736013 1 Tablet(s) PO daily 08/201810/20/2018 Active Tessalon Perles 100 mg capsule RxNorm: 814976 1-2 Capsule(s) PO TID PRN 10/14/2018 No Stop Date Active Coreg 6.25 mg tablet RxNorm: 437534 TAKE ONE TABLET BY MOUTH TWICE A DAY 09/30/2018 03/28/2019 Active albuterol sulfate 2.5 mg/3 mL (0.083 %) solution for nebulization RxNorm: 190747 3 Milliliter(s) INH UD 09/30/201807/2018 Inactive Kenalog 40 mg/mL suspension for injection RxNorm: 6147469 1.5 Milliliter(s) Inj 09/30/2018 09/30/2018 Inactive Keflex 500 mg capsule RxNorm: 058281 1 Capsule(s) PO TID 201710/03/2018 Inactive prednisone 20 mg tablet RxNorm: 494639 2 Tablet(s) PO daily 09/29/2018 Inactive Kenalog 40 mg/mL suspension for injection RxNorm: 1668272 Milliliter(s) Inj 09/11/2018 09/11/2018 Inactive Zyrtec 10 mg tablet RxNorm: 1551207 1 Tablet(s) PO daily 09/0910/08/2018 Inactive Keflex 500 mg capsule RxNorm: 601433 1 Capsule(s) PO TID 201709/15/2018 Inactive Tresiba FlexTouch U-200 insulin 200 unit/mL (3 mL) subcutaneous pen RxNorm: 2187881 50 Unit(s) SQ daily 08/30/2018 08/29/2018 Inactive please give him 30 day supply Tresiba FlexTouch U-200 insulin 200 unit/mL (3 mL) subcutaneous pen RxNorm: 3564398 50 Unit(s) SQ daily 08/30/2018 09/28/2018 Inactive please give him 30 day supply Novolog Flexpen U-100 Insulin aspart 100 unit/mL subcutaneous RxNorm: 1221245 8 Unit(s) SQ AC 08/13/2018 No Stop Date Active Novolog Flexpen U-100 Insulin aspart 100 unit/mL subcutaneous RxNorm: 2907848 8 Unit(s) SQ AC 07/22/20182017 Inactive this is an update on his medication Novolog Flexpen U-100 Insulin aspart 100 unit/mL subcutaneous RxNorm: 2061041 12 Unit(s) SQ AC 07/05/20182017 Inactive this is an update on his medication Ronaldujose SigalaoStar U-300 Insulin 300 unit/mL (1.5 mL) subcutaneous pen RxNorm: 6919990 INJECT 50 UNITS UNDER THE SKIN DAILY 07/01/2018 08/29/2018 Inactive Mucinex 600 mg tablet, extended release RxNorm: 403893 1 Tablet(s) PO BID 06/28/2018 07/04/2018 Inactive Zofran 4 mg tablet RxNorm: 009923 1 Tablet(s) PO TID as needed nausea 06/28/2018 07/02/2018 Inactive Kenalog 40 mg/mL suspension for injection RxNorm: 1562175 Milliliter(s) Inj 06/28/2018 06/28/2018 Inactive Flonase Allergy Relief 50 mcg/actuation nasal spray, suspension RxNorm: 8408981 1 [place] NASAL BID 06/28/20182017 Inactive Lyrica 50 mg capsule RxNorm: 537986 Capsule(s) PO daily 201707/07/2018 Inactive Novolog Flexpen U-100 Insulin aspart 100 unit/mL subcutaneous RxNorm: 1422717 10 Unit(s) SQ AC 06/18/20182017 Inactive this is an update on his medication Lasix 20 mg tablet RxNorm: 198949 1 Tablet(s) PO BIW 201707/02/2018 Inactive atorvastatin 80 mg tablet RxNorm: 596817 1 Tablet(s) PO QHS 04/201812/06/2018 Active clonazepam 1 mg tablet RxNorm: 261595 2 Tablet(s) PO HS 201706/04/2019 Active clonazepam 1 mg tablet RxNorm: 710391 2 Tablet(s) PO HS as needed 06/10/2018 06/09/2018 Inactive Lyrica 50 mg capsule RxNorm: 649605 Capsule(s) PO daily 201707/08/2018 Inactive Lasix 20 mg tablet RxNorm: 148970 1 Tablet(s) PO TIW 201706/11/2018 Inactive Toujeo SoloStar U-300 Insulin 300 unit/mL (1.5 mL) subcutaneous pen RxNorm: 1218694 50 Unit(s) SQ daily 05/07/2018 06/30/2018 Inactive meloxicam 15 mg tablet RxNorm: 295914 15 Milligram(s) PO daily 05/02/2018 05/12/2018 Inactive ketorolac 30 mg/mL injection solution RxNorm: 240476 2 Milliliter(s) Inj 05/02/2018 05/02/2018 Inactive Toujeo SoloStar U-300 Insulin 300 unit/mL (1.5 mL) subcutaneous pen RxNorm: 6491188 45 Unit(s) daily 04/29/2018 Inactive clonazepam 1 mg tablet RxNorm: 234465 1 Tablet(s) PO Q8 as needed 04/29/2018 06/09/2018 Inactive doxycycline hyclate 100 mg tablet RxNorm: 7076243 1 Tablet(s) PO BID 04/29/2018 05/12/2018 Inactive Cymbalta 30 mg capsule,delayed release RxNorm: 747346 1 Capsule(s) PO QAM 03/13/2018 10/08/2018 Inactive Lexapro 10 mg tablet RxNorm: 470957 1 Tablet(s) PO QPM 201703/03/2018 Inactive Toujeo SoloStar U-300 Insulin 300 unit/mL (1.5 mL) subcutaneous pen RxNorm: 8353293 20 Unit(s) daily 02/28/2018 Inactive Protonix 40 mg tablet,delayed release RxNorm: 226462 1 Tablet(s) PO daily 01/29/2018 06/09/2018 Inactive clonazepam 1 mg tablet RxNorm: 141219 1 Tablet(s) PO Q8 as needed 12/12/2017 03/10/2018 Inactive Tamiflu 75 mg capsule RxNorm: 370636 1 Capsule(s) PO BID 201712/03/2017 Inactive doxycycline hyclate 100 mg capsule RxNorm: 4694055 1 Capsule(s) PO BID 09/07/2017 09/20/2017 Inactive doxycycline hyclate 100 mg capsule RxNorm: 7632693 1 Capsule(s) PO BID 08/27/2017 09/06/2017 Inactive prednisone 20 mg tablet RxNorm: 427920 2 Tablet(s) PO daily 08/31/2017 Inactive clopidogrel 75 mg tablet RxNorm: 821928 1 Tablet(s) PO daily 06/09/2018 Inactive atorvastatin 40 mg tablet RxNorm: 981092 1 Tablet(s) PO QHS 02/27/2018 Inactive losartan 25 mg tablet RxNorm: 236485 TAKE ONE TABLET BY MOUTH DAILY 08/22/2017 06/09/2018 Inactive Toujeo SoloStar 300 unit/mL (1.5 mL) subcutaneous insulin pen RxNorm: 5476988 45 Unit(s) daily 08/17/2017 08/20/2017 Inactive mupirocin 2 % topical ointment RxNorm: 635141 1 Application TOP TID to the lesions on chest 08/16/2017 08/25/2017 Inactive Toujeo SoloStar 300 unit/mL (1.5 mL) subcutaneous insulin pen RxNorm: 5836832 40 Unit(s) daily 08/16/2017 08/16/2017 Inactive valacyclovir 1 gram tablet RxNorm: 486530 1 Tablet(s) PO TID 08/01/2017 Inactive clonazepam 1 mg tablet RxNorm: 551121 1 Tablet(s) PO Q8 as needed 07/03/2017 09/30/2017 Inactive Levaquin 500 mg tablet RxNorm: 997091 1 Tablet(s) PO daily 06/25/2017 Inactive Levaquin 500 mg tablet RxNorm: 832455 1 Tablet(s) PO daily 06/21/2017 Inactive losartan 25 mg tablet RxNorm: 197706 1 Tablet(s) PO daily 201608/16/2017 Inactive nystatin 100,000 unit/mL oral suspension RxNorm: 524630 5 Milliliter(s) PO QID Swish et swallow 06/18/2017 06/17/2017 Inactive nystatin 100,000 unit/mL oral suspension RxNorm: 868823 5 Milliliter(s) PO QID Swish et swallow 06/18/2017 06/27/2017 Inactive Cipro 500 mg tablet RxNorm: 690221 1 Tablet(s) PO BID 201606/18/2017 Inactive Cipro 500 mg tablet RxNorm: 974170 1 Tablet(s) PO BID 201606/11/2017 Inactive Toujeo SoloStar 300 unit/mL (1.5 mL) subcutaneous insulin pen RxNorm: 6910524 INJECT 10 UNITS UNDER THE SKIN DAILY 06/12/2017 08/15/2017 Inactive Keflex 500 mg capsule RxNorm: 812323 1 Capsule(s) PO TID 201606/13/2017 Inactive doxycycline hyclate 100 mg capsule RxNorm: 3717882 1 Capsule(s) PO BID 05/17/2017 05/21/2017 Inactive doxycycline hyclate 100 mg capsule RxNorm: 6578723 1 Capsule(s) PO BID 05/11/2017 05/16/2017 Inactive losartan 25 mg tablet RxNorm: 385507 1 Tablet(s) PO daily 201606/17/2017 Inactive atorvastatin 40 mg tablet RxNorm: 475747 1 Tablet(s) PO daily 03/01/2017 08/23/2017 Inactive clopidogrel 75 mg tablet RxNorm: 226995 1 Tablet(s) PO daily 08/23/2017 Inactive Flonase Allergy Relief 50 mcg/actuation nasal spray, suspension RxNorm: 8290056 2 [place] NASAL daily 02/16/20172016 Inactive Augmentin 875 mg-125 mg tablet RxNorm: 356103 1 Tablet(s) PO BID 02/16/2017 02/22/2017 Inactive GET PROBIOTIC TO TAKE WHILE ON ABX Tamiflu 75 mg capsule RxNorm: 000337 1 Capsule(s) PO BID 201602/20/2017 Inactive ceftriaxone 500 mg solution for injection RxNorm: 0616340 1 Milliliter(s) Inj 02/16/2017 02/16/2017 Inactive Kenalog 40 mg/mL suspension for injection RxNorm: 3083111 1 Milliliter(s) Inj 02/16/2017 02/16/2017 Inactive Toujeo SoloStar 300 unit/mL (1.5 mL) subcutaneous insulin pen RxNorm: 5036828 25 Unit(s) SQ QAM 02/12/2017 06/10/2017 Inactive Toujeo SoloStar 300 unit/mL (1.5 mL) subcutaneous insulin pen RxNorm: 8664844 10 Unit(s) SQ QAM 02/05/2017 02/11/2017 Inactive lisinopril 10 mg tablet RxNorm: 900851 1 Tablet(s) PO daily 02/28/2017 Inactive atorvastatin 40 mg tablet RxNorm: 250984 1 Tablet(s) PO daily 02/01/2017 02/28/2017 Inactive doxycycline hyclate 100 mg capsule RxNorm: 6363190 1 Capsule(s) PO BID 02/01/2017 02/10/2017 Inactive clonazepam 1 mg tablet RxNorm: 306227 1 Tablet(s) PO Q8 as needed 10/09/2016 01/05/2017 Inactive ceftriaxone 1 gram solution for injection RxNorm: 8318625 Inj 10/06/2016 10/06/2016 Inactive cyclobenzaprine 10 mg tablet RxNorm: 622068 1/2-1 Tablet(s) PO TID PRN 07/18/2016 01/28/2017 Inactive clonazepam 1 mg tablet RxNorm: 377016 1 Tablet(s) PO Q8 as needed 05/31/2016 05/29/2016 Inactive clonazepam 1 mg tablet RxNorm: 938760 1 Tablet(s) PO Q8 as needed 05/31/2016 08/28/2016 Inactive Toujeo SoloStar 300 unit/mL (1.5 mL) subcutaneous insulin pen RxNorm: 9459430 10 Unit(s) SQ daily 05/23/2016 01/28/2017 Inactive Crestor 10 mg tablet RxNorm: 200865 1 Tablet(s) PO QHS 201501/28/2017 Inactive Crestor 10 mg tablet RxNorm: 376309 1 Tablet(s) PO QHS 201505/18/2016 Inactive clonazepam 1 mg tablet RxNorm: 421774 1 Tablet(s) PO Q8 as needed 04/25/2016 05/30/2016 Inactive prednisone 20 mg tablet RxNorm: 205412 3 Tablet(s) PO daily 06/201602/10/2016 Inactive prednisone 20 mg tablet RxNorm: 553515 3 Tablet(s) PO daily 06/201605/14/2016 Inactive Kenalog 40 mg/mL suspension for injection RxNorm: 3882621 Milliliter(s) Inj 01/20/2016 01/20/2016 Inactive aspirin 81 mg tablet,delayed release RxNorm: 142466 1 Tablet(s) PO daily No Start Date Active Brilinta 90 mg tablet RxNorm: 0921323 1 Tablet(s) PO BID No Start Date Active valsartan 80 mg tablet RxNorm: 249363 1 Tablet(s) PO daily No Start Date Active acetaminophen 500 mg tablet RxNorm: 979504 1-2 Tablet(s) PO as needed No Start Date Active clopidogrel 75 mg tablet RxNorm: 733821 1 Tablet(s) PO daily No Start Date 02/28/2017 Inactive Novolog Flexpen U-100 Insulin aspart 100 unit/mL subcutaneous RxNorm: 3184698 5 units with breakfast lunch and 10 supper Unit(s) SQ No Start Date 06/17/2018 Inactive clonazepam 1 mg tablet RxNorm: 786247 1 Tablet(s) PO QHS No Start Date 04/24/2016 Inactive Coreg 6.25 mg tablet RxNorm: 696063 1 Tablet(s) PO BID No Start Date 09/29/2018 Inactive acyclovir 400 mg tablet RxNorm: 253882 2 Tablet(s) PO 5x daily No Start Date 02/28/2017 Inactive Lyrica 50 mg capsule RxNorm: 536545 Capsule(s) PO BID No Start Date 06/09/2018 Inactive Vraylar 3 mg capsule RxNorm: 1342428 1 Capsule(s) PO daily No Start Date 03/12/2018 Inactive Medication Administered Medication Codes Instructions Start Date Status Kenalog 40 mg/mL suspension for injection RxNorm: 2744069 1.5Milliliter 09/30/2018 No longer Active Kenalog 40 mg/mL suspension for injection RxNorm: 1002869 Milliliter 09/11/2018 No longer Active Kenalog 40 mg/mL suspension for injection RxNorm: 7690695 Millil[place] 06/28/2018 No longer Active ketorolac 30 mg/mL injection solution RxNorm: 978680 2Milliliter 05/02/2018 No longer Active ceftriaxone 500 mg solution for injection RxNorm: 2126796 1Milliliter 02/16/2017 No longer Active Kenalog 40 mg/mL suspension for injection RxNorm: 7142194 1Milliliter 02/16/2017 No longer Active ceftriaxone 1 gram solution for injection RxNorm: 6814229 10/06/2016 No longer Active Kenalog 40 mg/mL suspension for injection RxNorm: 5232894 Milliliter 01/20/2016 No longer Active Immunizations Vaccine Codes Date Status Influenza CVX: 141 07/22/2018 completed Influenza CVX: 141 08/16/2017 completed Assessments Condition Codes Effective Dates Cough ICD-10: R05 ICD-9: 786.2 10/14/2018 Acute [...] Visit Reason For Visit Effective Dates Notes cough 10/14/2018 cough 09/30/2018 cough 09/09/2018 diabetes [...] Observation Code Item Item Code Result Date LIPID GRP CHOLESTEROL TNP:Duplicate Order 09/10/2018 LIPID GRP Triglyceride TNP:Duplicate Order 2017 LIPID GRP 5177949 HDL CHOLESTEROL TNP:Duplicate Order 2017 LIPID GRP Chol/HDL Ratio TNP:Duplicate Order 2017 LIPID GRP LDL Cholesterol TNP:Duplicate Order 2017 A1C HPLC 7806376 Hgb A1c 42761-5 TNP:Duplicate Order 2017 C Diff An [id number] GD TNP:Lab Request 06/22/2018 C Diff An [id number] Toxin A/B TNP:Lab Request 06/22/2018 C Diff An [id number] C Diff Analyzer TNP:Lab Request 2017 C Diff An [id number] IC OK? TNP:Lab Request 06/22/2018 CBC 0859400 WBC 6.4 10e9/L 05/02/2018 CBC 2400712 RBC 5.60 10e12/L 05/02/2018 CBC 0595119 HEMOGLOBIN 17.0 g/dL 05/02/2018 CBC 4204206 HEMATOCRIT 48.0 % 05/02/2018 CBC 7077455 MCV 85.7 fL 05/02/2018 CBC 5298304 MCH 30.4 pg 05/02/2018 CBC 8036876 MCHC 35.4 g/dL 05/02/2018 CBC 3849462 PLATELET COUNT 166 10e9/L 05/02/2018 CBC 0603717 Mean Plt Volume 11.6 fL 05/02/2018 CBC 1824100 Neut Auto 48.6 % 05/02/2018 CBC 6230329 Lymph Auto 41.7 % 05/02/2018 CBC 1029030 [place] Auto 8.1 % 05/02/2018 CBC 6392520 RDW 13.1 % 05/02/2018 CBC 2253450 Eos Auto 1.1 % 05/02/2018 CBC 9634160 Baso Auto 0.5 % 05/02/2018 CBC 5740127 Neutrophil Abs 3.11 10e9/L 05/02/2018 CBC 7503890 Lymphocyte Abs 2.67 10e9/L 05/02/2018 CBC 9338911 Monocyte Abs 0.52 10e9/L 05/02/2018 CBC 9146690 Eosinophil Abs 0.07 10e9/L 05/02/2018 CBC 0398625 RDW-SD 40.0 fL 05/02/2018 CBC 8982497 Basophil Abs 0.03 10e9/L 05/02/2018 CHEM 14 3009187 AST 17 U/L 05/02/2018 CHEM 14 6037858 ALT 17 U/L 05/02/2018 CHEM 14 3464590 BUN 17 mg/dL 05/02/2018 CHEM 14 4281879 ALBUMIN 4.0 g/dL 05/02/2018 CHEM 14 2997095 CHLORIDE 97 mmol/L 05/02/2018 CHEM 14 7753669 Bili Total 0.9 mg/dL 05/02/2018 CHEM 14 5274487 ALK PHOS 67 U/L 05/02/2018 CHEM 14 6011812 SODIUM 135 mmol/L 05/02/2018 CHEM 14 9253475 CREATININE 1.18 mg/dL 05/02/2018 CHEM 14 0406021 CALCIUM 9.4 mg/dL 05/02/2018 CHEM 14 0202848 POTASSIUM 4.4 mmol/L 05/02/2018 CHEM 14 8196648 TOTAL PROTEIN 6.9 g/dL 05/02/2018 CHEM 14 3901114 GLUCOSE 316 mg/dL 05/02/2018 CHEM 14 3723632 Bicarbonate 29 mmol/L 05/02/2018 CHEM 14 7689418 AGAP 9 mmol/L 05/02/2018 MEAN GLUC 8735161 Calc Mean Gluc 283 mg/dL 05/02/2018 A1C HPLC 1901838 Hgb A1c 45487-3 11.5 % 05/02/2018 GFR CALC 3493519 GFR Non Afr Amr >60 mL/min 05/02/2018 GFR CALC 6178981 GFR Afr Amr >60 mL/min 05/02/2018 [facility] Gold [id number] JI Gold Complete 02/28/2018 GFR CALC 5503747 GFR Non Afr Amr >60 mL/min 02/28/2018 GFR CALC 6858049 GFR Afr Amr >60 mL/min 02/28/2018 UA W/CII 1786501 UA Urine Appear Normal 02/28/2018 UA W/CII 1220529 UA Protein 1+ 02/28/2018 UA W/CII 4448972 UA Hemoglobin Negative 02/28/2018 UA W/CII 8768943 UA Glucose 4+ 02/28/2018 UA W/CII 1092798 UA Ketones Trace 02/28/2018 UA W/CII 0043782 UA pH 5.5 02/28/2018 UA W/CII 6034907 U Spec [place] 1.015 02/28/2018 UA W/CII 7979088 UA Bilirubin Negative 02/28/2018 UA W/CII 4767903 UA Nitrite NEG 02/28/2018 UA W/CII 2680898 UA Leuk Esteras Negative 02/28/2018 MICR 9072040 UA WBC/hpf 1 02/28/2018 MICR 5721626 UA RBC hpf 2 02/28/2018 MICR 1833041 UA WBC auto 3.8 /uL 02/28/2018 MICR 1612336 UA RBC auto 12.2 /uL 02/28/2018 MICR 8752761 UA SQ EPI auto 2.3 /uL 02/28/2018 MICR 9427904 UA H Cast auto 0.10 /uL 02/28/2018 CBC 9632062 WBC 6.4 10e9/L 02/28/2018 CBC 6757051 RBC 5.51 10e12/L 02/28/2018 CBC 4473514 HEMOGLOBIN 16.7 g/dL 02/28/2018 CBC 9064042 HEMATOCRIT 46.9 % 02/28/2018 CBC 5780256 MCV 85.1 fL 02/28/2018 CBC 8724838 MCH 30.3 pg 02/28/2018 CBC 3514399 MCHC 35.6 g/dL 02/28/2018 CBC 4303352 PLATELET COUNT 173 10e9/L 02/28/2018 CBC 5173761 Mean Plt Volume 11.6 fL 02/28/2018 CBC 8446708 Neut Auto 51.8 % 02/28/2018 CBC 5148759 Lymph Auto 39.9 % 02/28/2018 CBC 4542899 [place] Auto 7.3 % 02/28/2018 CBC 5688087 Eos Auto 0.8 % 02/28/2018 CBC 9549983 RDW 13.3 % 02/28/2018 CBC 1497207 Baso Auto 0.2 % 02/28/2018 CBC 3165433 Neutrophil Abs 3.32 10e9/L 02/28/2018 CBC 6686184 Lymphocyte Abs 2.55 10e9/L 02/28/2018 CBC 2908257 Monocyte Abs 0.47 10e9/L 02/28/2018 CBC 4265035 Eosinophil Abs 0.05 10e9/L 02/28/2018 CBC 9654772 Basophil Abs 0.01 10e9/L 02/28/2018 CBC 3207828 RDW-SD 40.8 fL 02/28/2018 CHEM 14 6611944 AST 17 U/L 02/28/2018 CHEM 14 5365506 ALT 17 U/L 02/28/2018 CHEM 14 7605802 BUN 20 mg/dL 02/28/2018 CHEM 14 6965742 ALBUMIN 4.1 g/dL 02/28/2018 CHEM 14 7195653 CHLORIDE 97 mmol/L 02/28/2018 CHEM 14 1747819 Bili Total 1.3 mg/dL 02/28/2018 CHEM 14 0101685 ALK PHOS 78 U/L 02/28/2018 CHEM 14 1694320 SODIUM 135 mmol/L 02/28/2018 CHEM 14 8238916 CREATININE 1.09 mg/dL 02/28/2018 CHEM 14 7865909 CALCIUM 9.6 mg/dL 02/28/2018 CHEM 14 0695242 POTASSIUM 3.8 mmol/L 02/28/2018 CHEM 14 9805530 TOTAL PROTEIN 7.3 g/dL 02/28/2018 CHEM 14 1440795 GLUCOSE 349 mg/dL 02/28/2018 CHEM 14 0289384 Bicarbonate 29 mmol/L 02/28/2018 CHEM 14 1779980 AGAP 9 mmol/L 02/28/2018 [place] Spotted Fever Igg/Igm 911699 FEI MT SPOTTED FEVER IGM EIA . 09/05/2017 [place] Spotted Fever Igg/Igm 069376 RMSF, IGM 0.17 index 09/05/2017 [place] Spotted Fever Igg/Igm 607039 FEI MT SPOTTED FEVER IGG EIA FLEX . 09/05/2017 [place] Spotted Fever Igg/Igm 641550 RMSF, IGG SCREEN-FLEX Positive 09/05/2017 Fei Mtn Spot'D Fev Igg 566291 RMSF, IGG -TITER IFA <1:64 11/2016 Ehrlichia Chaffeensis Antibody Igm 755819 EHRLICHIA CHAFFEENSIS IGM < 1:16 09/03/2017 Ehrlichia Chaffeensis Antibody Igg 117170 EHRLICHIA CHAFFEENSIS IGG <1:64 09/03/2017 Lymes Disease Total Antibodies With Western Blot Reflex B. BURGDORFERI, IGG/IGM 0.223 08/30/2017 Lymes Disease Total Antibodies With Western Blot Reflex C-Reactive Protein Qnt Crqnt CRP 0.00 mg/dl 08/27/2017 Sed Rate Ord21 ESR 8 mm/hr 08/27/2017 Comp Metabolic Cvu696 NA 135 mEq/L 08/16/2017 Comp Metabolic Gnp370 K 4.1 mEq/L 08/16/2017 Comp Metabolic Atq140 CL 98 mEq/L 08/16/2017 Comp Metabolic Gil842 CO2 28.0 mEq/L 08/16/2017 Comp Metabolic Bii862 ANION GAP 13 08/16/2017 Comp Metabolic Ext488 GLUCOSE 299 mg/dL 08/16/2017 Comp Metabolic Jlh829 Creat 0.9 mg/dL 08/16/2017 Comp Metabolic Xob959 eGFR 90 ml/min/1.73m2 08/16/2017 Comp Metabolic Zyn581 BUN 20 mg/dL 08/16/2017 Comp Metabolic Sgs636 B/C Ratio 21.5 Ratio 08/16/2017 Comp Metabolic Bfz293 CALCIUM 9.2 mg/dL 08/16/2017 Comp Metabolic Mee597 ALK PHOS 84 U/L 08/16/2017 Comp Metabolic Psq132 AST(SGOT) 19 U/L 08/16/2017 Comp Metabolic Xng348 ALT(SGPT) 24 U/L 08/16/2017 Comp Metabolic Bqm618 BILI T 1.1 mg/dL 08/16/2017 Comp Metabolic Ewk539 ALBUMIN 4.2 g/dL 08/16/2017 Comp Metabolic Dbf212 TPRO 7.2 g/dL 08/16/2017 Comp Metabolic Hfb075 GLOB 3.0 g/dL 08/16/2017 Comp Metabolic Cam563 A/G Ratio 1.4 Ratio 08/16/2017 Comp Metabolic Vno852 Osmo 284 mOsmo 08/16/2017 %Hba1C Izh292 % HbA1c 14810-3 12.5 % 08/16/2017 %Hba1C Jsy667 Gluc Ave 312 mg/dL 08/16/2017 Urine Culture Ucult Complete NO Growth Day 2 06/23/2017 Urine Culture Ucult Preliminary NO Growth Day 1 06/23/2017 C RAP A SC [id number] Strep A Negative 06/08/2017 %Hba1C Piz118 % HbA1c 76037-7 9.5 % 05/04/2017 %Hba1C Ipo022 Gluc Ave 226 mg/dL 05/04/2017 Tsh Ord6 [...] 31.7 pg 05/04/2017 Cbc With Differential Ord2 [place]% 8.5 % 05/04/2017 Cbc With Differential Ord2 MCHC 35.2 pg 05/04/2017 Cbc With Differential Ord2 Eos% 1.0 % 05/04/2017 Cbc With Differential Ord2 PLT 158 K/ul 05/04/2017 Cbc With Differential Ord2 Baso% 0.3 % 05/04/2017 Cbc With Differential Ord2 RDW 13.6 % 05/04/2017 Cbc With Differential Ord2 Neut ABS# 3.06 K/ul 05/04/2017 Cbc With Differential Ord2 Lymph ABS# 2.48 K/ul 05/04/2017 Cbc With Differential Ord2 [place] ABS# 0.5 K/ul 05/04/2017 Cbc With Differential Ord2 Eos ABS# 0.1 K/ul 05/04/2017 Cbc With Differential Ord2 Baso ABS# 0.0 K/ul 05/04/2017 Comp Metabolic Bvc691 NA 135 mEq/L 05/04/2017 Comp Metabolic Jxe944 K 4.2 mEq/L 05/04/2017 Comp Metabolic Fnh732 CL 99 mEq/L 05/04/2017 Comp Metabolic Gjj048 CO2 26.0 mEq/L 05/04/2017 Comp Metabolic Det218 ANION GAP 14 05/04/2017 Comp Metabolic Pzd502 GLUCOSE 277 mg/dL 05/04/2017 Comp Metabolic Gpy695 Creat 0.9 mg/dL 05/04/2017 Comp Metabolic Dtr874 eGFR 96 ml/min/1.73m2 05/04/2017 Comp Metabolic Pxm470 BUN 23 mg/dL 05/04/2017 Comp Metabolic Kpb821 B/C Ratio 26.1 Ratio 05/04/2017 Comp Metabolic Uik380 CALCIUM 8.9 mg/dL 05/04/2017 Comp Metabolic Jjv099 ALK PHOS 81 U/L 05/04/2017 Comp Metabolic Cda601 AST(SGOT) 21 U/L 05/04/2017 Comp Metabolic Eoi019 ALT(SGPT) 27 U/L 05/04/2017 Comp Metabolic Ppd917 BILI T 1.2 mg/dL 05/04/2017 Comp Metabolic Wle539 ALBUMIN 4.0 g/dL 05/04/2017 Comp Metabolic Sbb582 TPRO 6.7 g/dL 05/04/2017 Comp Metabolic Mgc311 GLOB 2.7 g/dL 05/04/2017 Comp Metabolic Vvr457 A/G Ratio 1.5 Ratio 05/04/2017 Comp Metabolic Jhe451 Osmo 284 mOsmo 05/04/2017 C A/B FLU 9654204 Influenza A Scr Negative 02/16/2017 C A/B FLU 1843359 Influenza B Scr Positive 02/16/2017 Cbc With [...] 30.3 pg 05/23/2016 Cbc With Differential Ord2 [place]% 8.8 % 05/23/2016 Cbc With Differential Ord2 MCHC 34.6 pg 05/23/2016 Cbc With Differential Ord2 Eos% 1.0 % 05/23/2016 Cbc With Differential Ord2 PLT 141 K/ul 05/23/2016 Cbc With Differential Ord2 Baso% 0.2 % 05/23/2016 Cbc With Differential Ord2 RDW 13.2 % 05/23/2016 Cbc With Differential Ord2 Neut ABS# 2.63 K/ul 05/23/2016 Cbc With Differential Ord2 Lymph ABS# 2.07 K/ul 05/23/2016 Cbc With Differential Ord2 [place] ABS# 0.5 K/ul 05/23/2016 Cbc With Differential Ord2 Eos ABS# 0.1 K/ul 05/23/2016 Cbc With Differential Ord2 Baso ABS# 0.0 K/ul 05/23/2016 Lipid Ord30 CHOL 397 mg/dL 05/17/2016 Lipid Ord30 HDL 48.0 mg/dl 05/17/2016 Lipid Ord30 TRIG 578 mg/dL 05/17/2016 Lipid Ord30 LDL Unable to calculate Due to elevated triglycerides mg/dL 05/17/2016 Lipid Ord30 C/HDL 8.3 Ratio 05/17/2016 %Hba1C Cph735 % HbA1c 23022-8 12.4 % 05/16/2016 %Hba1C Oiz950 Gluc Ave 309 mg/dL 05/16/2016 Cbc With [...] 87.4 fl 05/15/2016 Cbc With Differential Ord2 [place]% 7.8 % 05/15/2016 Cbc With Differential Ord2 [...] 2.04 K/ul 05/15/2016 Cbc With Differential Ord2 [place] ABS# 0.5 K/ul 05/15/2016 Cbc With Differential Ord2 Eos ABS# 0.1 K/ul 05/15/2016 Cbc With Differential Ord2 Baso ABS# 0.0 K/ul 05/15/2016 Tsh Ord6 hTSH II 1.70 uIU/mL 05/15/2016 Comp Metabolic Fjz216 NA 135 mEq/L 05/15/2016 Comp Metabolic Ryy904 K 3.9 mEq/L 05/15/2016 Comp Metabolic Tmo482 CL 96 mEq/L 05/15/2016 Comp Metabolic Lgf813 CO2 27.0 mEq/L 05/15/2016 Comp Metabolic Bdt450 ANION GAP 16 05/15/2016 Comp Metabolic Oou610 GLUCOSE 183 mg/dL 05/15/2016 Comp Metabolic Hsn828 Creat 1.1 mg/dL 05/15/2016 Comp Metabolic Mzn153 eGFR 71 ml/min/1.73m2 05/15/2016 Comp Metabolic Vlw553 BUN 17 mg/dL 05/15/2016 Comp Metabolic Nhf076 B/C Ratio 14.9 Ratio 05/15/2016 Comp Metabolic Gni544 CALCIUM 9.6 mg/dL 05/15/2016 Comp Metabolic Xrf886 ALK PHOS 100 U/L 05/15/2016 Comp Metabolic Icb246 AST(SGOT) 20 U/L 05/15/2016 Comp Metabolic Jhp706 ALT(SGPT) 20 U/L 05/15/2016 Comp Metabolic Tcq515 BILI T 1.3 mg/dL 05/15/2016 Comp Metabolic Nuj712 ALBUMIN 4.6 g/dL 05/15/2016 Comp Metabolic Fwx761 TPRO 8.1 g/dL 05/15/2016 Comp Metabolic Rhg132 GLOB 3.5 g/dL 05/15/2016 Comp Metabolic Ndt088 A/G Ratio 1.3 Ratio 05/15/2016 Comp Metabolic Ydi402 Osmo 276 mOsmo 05/15/2016 Review of Systems System Result Effective Dates Constitutional recent illness 10/14/2018 Constitutional No anorexia [...] Result Effective Dates Notes Full Exam - ENT Constitutional general appearance [...] nourished 05/13/2018 None Full Exam - General 1992 Eyes conjunctiva /eyelids Overall: conjunctiva clear 05/13/2018 None Full Exam - General 1994 Eyes conjunctiva /eyelids Overall: cornea clear 05/13/2018 None Full Exam - General 1994 Eyes conjunctiva /eyelids Overall: eyelids normal 05/13/2018 None Full Exam - General 1994 Ears/Nose/Throat otoscopic exam Overall: external auditory canals clear 05/13/2018 None Full Exam - General 1994 Ears/Nose/Throat otoscopic exam Overall: tympanic membranes clear 05/13/2018 None Full Exam - General 1994 Ears/Nose/Throat lips/teeth/gingiva Overall: benign lips 05/13/2018 None Full Exam - General 1994 Ears/Nose/Throat [...] of skin Location: face 05/04/2017 patch left yarsani Full Exam - General 1994 Constitutional general [...] CPT-4: J3301 09/30/2018 THER/PROPH/DIAG INJ SC/IM CPT-4: 43400 09/11/2018 TRIAMCINOLONE ACET INJ NOS CPT-4: J3301 09/11/2018 IMMUNIZATION ADMIN CPT -4: 10483 07/22/2018 FLU VAC NO PRSV 4 MENA 3 YRS+ CPT-4: 14907 07/22/2018 TRIAMCINOLONE ACET INJ NOS CPT-4: J3301 06/28/2018 KETOROLAC TROMETHAMINE INJ CPT-4: J1885 05/02/2018 FLU VAC NO PRSV 4 MENA 3 YRS+ CPT-4: 06339 08/16/2017 IMMUNIZATION ADMIN CPT -4: 17037 08/16/2017 URINALYSIS NONAUTO W/O SCOPE CPT-4: 00418 06/21/2017 TRIAMCINOLONE ACET INJ NOS CPT-4: J3301 05/04/2017 THER/PROPH/DIAG INJ SC/IM CPT-4: 84767 05/04/2017 TRIAMCINOLONE ACET INJ NOS CPT-4: J3301 02/16/2017 ROCEPHIN, PER 250 MG CPT-4: J0696 02/16/2017 ROCEPHIN, PER 250 MG CPT-4: J0696 10/06/2016 URINALYSIS NONAUTO W/O SCOPE CPT-4: 19497 07/18/2016 TRIAMCINOLONE ACET INJ NOS CPT-4: J3301 01/20/2016 Vital Signs Date Vital 10/14/2018 Blood Pressure 1: 124/70 Code : 8480-6 BMI: 33.6 Code : 36307-1 Heart Rate 1 : 76 bpm Height: 6'2" SpO2: 99% Temperature: 36.3 (C) / 97.3 (F) Weight: 262 lbs 09/30/2018 Blood Pressure 1: 138/82 Code : 8480-6 BMI: 33.6 Code : 01476-3 Heart Rate 1 : 82 bpm Height: 6'2" SpO2: 98% Temperature: 36.3 (C) / 97.3 (F) Weight: 262 lbs 09/09/2018 Blood Pressure 1: 140/80 Code : 8480-6 BMI: 33.0 Code : 10381-7 Heart Rate 1 : 97 bpm Height: 6'2" SpO2: 93% Temperature: 36.8 (C) / 98.2 (F) Weight: 257 lbs 07/22/2018 Blood Pressure 1: 120/78 Code : 8480-6 BMI: 31.6 Code : 99486-6 Heart Rate 1 : 87 bpm Height: 6'2" SpO2: 98% Weight: 246 lbs 07/16/2018 Blood Pressure 1: 132/74 Code : 8480-6 BMI: 31.2 Code : 76803-1 Heart Rate 1 : 90 bpm Height: 6'2" SpO2: 96% Weight: 243 lbs 07/01/2018 Blood Pressure 1: 142/82 Code : 8480-6 BMI: 31.8 Code : 37638-6 Heart Rate 1 : 88 bpm Height: 6'2" SpO2: 98% Weight: 248 lbs 06/28/2018 Blood Pressure 1: 132/76 Code : 8480-6 BMI: 31.8 Code : 95993-1 Heart Rate 1 : 107 bpm Height: 6'2" SpO2: 98% Temperature: 37.9 (C) / 100.3 (F) Weight: 248 lbs 06/18/2018 Blood Pressure 1: 138/82 Code : 8480-6 BMI: 31.8 Code : 22590-4 Heart Rate 1 : 82 bpm Height: 6'2" SpO2: 97% Weight: 248 lbs 06/04/2018 Blood Pressure 1: 128/84 Code : 8480-6 BMI: 33.9 Code : 84429-0 Heart Rate 1 : 86 bpm Height: 6'2" SpO2: 95% Weight: 264 lbs 05/13/2018 Blood Pressure 1: 130/80 Code : 8480-6 BMI: 31.1 Code : 58340-3 Heart Rate 1 : 100 bpm Height: 6'2" SpO2: 94% Weight: 242 lbs 05/02/2018 Blood Pressure 1: 134/84 Code : 8480-6 BMI: 31.2 Code : 07714-2 Heart Rate 1 : 93 bpm Height: 6'2" SpO2: 98% Weight: 243 lbs 04/29/2018 Blood Pressure 1: 142/88 Code : 8480-6 BMI: 31.6 Code : 72299-2 Heart Rate 1 : 96 bpm Height: 6'2" SpO2: 96% Temperature: 36.7 (C) / 98.1 (F) Weight: 246 lbs 03/13/2018 Blood Pressure 1: 120/76 Code : 8480-6 BMI: 30.9 Code : 40440-2 Heart Rate 1 : 112 bpm Height: 6'2" SpO2: 97% Weight: 241 lbs 03/07/2018 Blood Pressure 1: 108/78 Code : 8480-6 BMI: 30.0 Code : 48996-8 Heart Rate 1 : 87 bpm Height: 6'2" SpO2: 98% Weight: 234 lbs 02/28/2018 Blood Pressure 1: 106/74 Code : 8480-6 BMI: 30.0 Code : 31310-4 Heart Rate 1 : 101 bpm Height: 6'2" SpO2: 98% Temperature: 36.4 (C) / 97.5 (F) Weight: 234 lbs 02/13/2018 Blood Pressure 1: 110/78 Code : 8480-6 BMI: 30.0 Code : 40559-5 Heart Rate 1 : 106 bpm Height: 6'2" SpO2: 98% Weight: 234 lbs 01/29/2018 Blood Pressure 1: 106/68 Code : 8480-6 BMI: 30.0 Code : 95919-2 Heart Rate 1 : 108 bpm Height: 6'2" SpO2: 98% Weight: 234 lbs 08/27/2017 Blood Pressure 1: 134/76 Code : 8480-6 Heart Rate 1: 98 bpm Height: SpO2: 97% Weight: 08/16/2017 Blood Pressure 1: 128/80 Code : 8480-6 BMI: 32.0 Code : 90706-2 Heart Rate 1 : 94 bpm Height: [...] Code : 8480-6 BMI: 31.8 Code : 20729-6 Heart Rate 1 : 102 bpm Height: [...] Code : 8480-6 BMI: 31.8 Code : 93997-6 Heart Rate 1 : 85 bpm Height: 6'2" SpO2: 96% Temperature: 36.6 (C) / 97.9 (F) Weight: 248 lbs 02/12/2017 Blood Pressure 1: 126/76 Code : 8480-6 BMI: 31.8 Code : 18840-8 Heart Rate 1 : 106 bpm Height: 6'2" SpO2: 91% Weight: 248 lbs 02/05/2017 Blood Pressure 1: 146/86 Code : 8480-6 BMI: 31.9 Code : 54412-3 Heart Rate 1 : 98 bpm Height: 6'2" SpO2: 87% Temperature: 36.7 (C) / 98.0 (F) Weight: 248 lbs 8 oz 01/29/2017 Blood Pressure 1: 132/84 Code : 8480-6 BMI: 31.8 Code : 15713-7 Heart Rate 1 : 83 bpm Height: 6'2" SpO2: 97% Weight: 248 lbs 10/13/2016 Blood Pressure 1: 128/72 Code : 8480-6 Heart Rate 1: 86 bpm SpO2: 94% 10/09/2016 Blood Pressure 1: 128/68 Code : 8480-6 Heart Rate 1: 136 bpm SpO2: 94% Temperature: 36.8 (C) / 98.2 (F) 10/06/2016 Blood Pressure 1: 140/80 Code : 8480-6 BMI: 32.1 Code : 22614-8 Heart Rate 1 : 94 bpm Height: 6'2" SpO2: 95% Weight: 250 lbs 07/18/2016 Blood Pressure 1: 128/86 Code : 8480-6 BMI: 32.1 Code : 29541-1 Heart Rate 1 : 89 bpm Height: 6'2" SpO2: 96% Weight: 250 lbs 06/22/2016 Blood Pressure 1: 118/70 Code : 8480-6 BMI: 32.1 Code : 69313-7 Heart Rate 1 : 70 bpm Height: 6'2" SpO2: 97% Weight: 250 lbs 05/23/2016 Blood Pressure 1: 128/80 Code : 8480-6 BMI: 32.1 Code : 92147-7 Heart Rate 1 : 76 bpm Height: 6'2" SpO2: 98% Weight: 250 lbs 05/15/2016 Blood Pressure 1: 110/90 Code : 8480-6 BMI: 31.3 Code : 93383-1 Heart Rate 1 : 111 bpm Height: 6'2" SpO2: 97% Temperature: 36.6 (C) / 97.8 (F) Weight: 244 lbs 01/20/2016 Blood Pressure 1: 128/76 Code : 8480-6 BMI: 33.0 Code : 05357-0 Heart Rate 1 : 103 bpm Height: 6'2" SpO2: 95% Weight: 257 lbs Functional Status No Functional Status data History of Present Illness Symptom Name Status Result Effective Date Notes Location in the throat 10/14/2018 None Quality [...] data Encounters Encounter Performer Location Codes Date ([id number]) 52571 EST. PATIENT, LEVEL III Diagnosis: Cough[ICD10: R05] Diagnosis: Acute bronchitis, unspecified[ICD10: J20.9] Melida Ha MD, [facility] CPT-4: 90349 10/14/2018 78190 EST. PATIENT, LEVEL III Diagnosis: Acute laryngopharyngitis[ICD10: J06.0] Diagnosis: Cough[ICD10: R05] [facility] CPT-4: 42011 09/30/2018 ([id number]) 93448 EST. PATIENT, LEVEL III Diagnosis: Acute recurrent maxillary sinusitis[ICD10: J01.01] Diagnosis: Cough[ICD10: R05] Diagnosis: Type 2 diabetes mellitus with hyperglycemia[ICD10: E11.65] [facility] CPT-4: 49116 09/09/2018 ([id number]) 44231 EST. PATIENT, LEVEL IV Diagnosis: Essential (primary) hypertension[ICD10: I10] Diagnosis: Mixed hyperlipidemia[ICD10: E78.2] Diagnosis: Bipolar disorder, current episode depressed, moderate[ICD10: F31.32] Diagnosis: Type 2 diabetes mellitus with other specified complication[ICD10: E11.69] Melida Ha MD, [facility] CPT-4: 87483 2017 ([id number]) 32958 EST. PATIENT, LEVEL III Diagnosis: Insomnia due to medical condition[ICD10: G47.01] Marcela Ha MD, [facility] CPT-4: 96799 07/16/2018 ([id number]) Miscellaneous no charge Diagnosis: Cough[ICD10: R05] Madeline Ha MD, [facility] CPT-4: 48554 07/01/2018 26885 EST. PATIENT, LEVEL III Diagnosis: Cough[ICD10: R05] Diagnosis: Acute laryngopharyngitis[ICD10: J06.0] Diagnosis: Other allergic rhinitis[ICD10: J30.89] Madeline Ha MD, [facility] CPT-4: 39801 06/28/2018 ([id number]) 24347 EST. PATIENT, LEVEL IV Diagnosis: Type 2 diabetes mellitus with hyperglycemia[ICD10: E11.65] Diagnosis: Essential (primary) hypertension[ICD10: I10] Melida Ha MD, [facility] CPT-4: 82583 06/18/2018 ([id number]) 58083 EST. PATIENT, LEVEL IV Diagnosis: Type 2 diabetes mellitus with hyperglycemia[ICD10: E11.65] Diagnosis: Essential (primary) hypertension[ICD10: I10] Diagnosis: Localized edema[ICD10: R60.0] Melida Ha MD, [facility] CPT- 4: 86499 06/04/2018 ([id number]) 61237 EST. PATIENT, LEVEL III Diagnosis: Type 2 diabetes mellitus with hyperglycemia[ICD10: E11.65] Diagnosis: Myalgia[ICD10: M79.1] Diagnosis: Pain in right hip[ICD10: M25.551] Diagnosis: Pain in left hip[ICD10: M25.552] Marcela Ha MD, [facility] CPT-4: 51325 05/13/2018 ([id number]) 52816 EST. PATIENT, LEVEL III Diagnosis: Myalgia[ICD10: M79.1] Diagnosis: Pain in right hip[ICD10: M25.551] Diagnosis: Pain in left hip[ICD10: M25.552] Marcela Ha MD, [facility] CPT-4: 25318 05/02/2018 ([id number]) 19873 EST. PATIENT, LEVEL IV Diagnosis: Essential (primary) hypertension[ICD10: I10] Diagnosis: Type 2 diabetes mellitus with hyperglycemia[ICD10: E11.65] Diagnosis: Major depressive disorder, single episode, moderate[ICD10: F32.1] Diagnosis: Myalgia[ICD10: M79.1] Marcela Ha MD, [facility] CPT-4: 58196 04/29/2018 ([id number]) 09035 EST. PATIENT, LEVEL IV Diagnosis: Type 2 diabetes mellitus with hyperglycemia[ICD10: E11.65] Diagnosis: Essential (primary) hypertension[ICD10: I10] Diagnosis: Major depressive disorder, single episode, moderate[ICD10: F32.1] Melida Ha MD, [facility] CPT-4: 79203 03/13/2018 ([id number]) 64760 EST. PATIENT, LEVEL III Diagnosis: Type 2 diabetes mellitus with hyperglycemia[ICD10: E11.65] Diagnosis: Bipolar disorder, current episode depressed, moderate[ICD10: F31.32] Diagnosis: Orthostatic hypotension[ICD10: I95.1] Marcela Ha MD, [facility] CPT-4: 76466 03/07/2018 ([id number]) 11915 EST. PATIENT, LEVEL IV Diagnosis: Type 2 diabetes mellitus with hyperglycemia[ICD10: E11.65] Diagnosis: Major depressive disorder, single episode, moderate[ICD10: F32.1] Diagnosis: Orthostatic hypotension[ICD10: I95.1] Diagnosis: Other fatigue[ICD10: R53.83] Marcela Ha MD, [facility] CPT-4: 94074 02/28/2018 30450 EST. PATIENT, LEVEL IV Diagnosis: Other fatigue[ICD10: R53.83] Diagnosis: Other malaise[ICD10: R53.81] Diagnosis: Gastro-esophageal reflux disease without esophagitis[ICD10: K21.9] Madeline Ha MD, [facility] CPT-4: 70358 02/13/2018 ([id number]) 81091 EST. PATIENT, LEVEL IV Diagnosis: Type 2 diabetes mellitus with foot ulcer[ICD10: E11.621] Diagnosis: Essential (primary) hypertension[ICD10: I10] Diagnosis: Gastro-esophageal reflux disease without esophagitis[ICD10: K21.9] Marcela Ha MD, [facility] CPT-4: 49378 01/29/2018 86662 EST. PATIENT, LEVEL III Diagnosis: Other malaise[ICD10: R53.81] Diagnosis: Other fatigue[ICD10: R53.83] Diagnosis: Pain in right shoulder[ICD10: M25.511] Diagnosis: Pain in left shoulder[ICD10: M25.512] Madeline Ha MD, [facility] CPT-4: 02416 08/27/2017 ([id number]) 43261 EST. PATIENT, LEVEL IV Diagnosis: Essential (primary) hypertension[ICD10: I10] Diagnosis: Type 2 diabetes mellitus with hyperglycemia[ICD10: E11.65] Diagnosis: VACCIN FOR INFLUENZA[ICD10: Z23] Melida Ha MD, [facility] CPT-4: 34827 08/16/2017 36018 EST. PATIENT, LEVEL III Diagnosis: Zoster without complications[ICD10: B02.9] Madeline Ha MD, [facility] CPT-4: 98121 07/26/2017 ([id number]) 01617 EST. PATIENT, LEVEL III Diagnosis: Cellulitis of right lower limb[ICD10: L03.115] Marcela Ha MD, [facility] CPT-4: 23476 07/03/2017 54314 EST. PATIENT, LEVEL II Diagnosis: Laceration without foreign body of left forearm, initial encounter[ ICD10: S51.812A] Marcela Ha MD, [facility] CPT-4: 99999 06/29/2017 ([id number]) 99235 EST. PATIENT, LEVEL III Diagnosis: Cellulitis of right lower limb[ICD10: L03.115] Diagnosis: Type 2 diabetes mellitus with foot ulcer[ICD10: E11.621] Marcela Ha MD , [facility] CPT-4: 67229 06/18/2017 ([id number]) 48141 EST. PATIENT, LEVEL IV Diagnosis: Cellulitis of right lower limb[ICD10: L03.115] Diagnosis: Acute laryngopharyngitis[ICD10: J06.0] Diagnosis: Gastro-esophageal reflux disease without esophagitis[ICD10: K21.9] Marcela Ha MD, [facility] CPT-4: 55659 06/07/2017 ([id number]) 44656 EST. PATIENT, LEVEL III Diagnosis: Type 2 diabetes mellitus with hyperglycemia[ICD10: E11.65] Diagnosis: Insect bite (nonvenomous) of abdominal wall, initial encounter[ICD10 : S30.861A] Marcela Ha MD, [facility] CPT-4: 00975 05/17/2017 ([id number]) 82182 EST. PATIENT, LEVEL III Diagnosis: Allergic contact dermatitis due to plants, except food[ICD10: L23.7] Melida Ha MD, [facility] CPT-4: 29179 05/04/2017 ([id number]) 51975 EST. PATIENT, LEVEL III Diagnosis: Essential (primary) hypertension[ICD10: I10] Marcela Ha MD, [facility] CPT-4: 59406 03/15/2017 ([id number]) 15231 EST. PATIENT, LEVEL III Diagnosis: Cough[ICD10: R05] Diagnosis: Essential (primary) hypertension[ICD10: I10] Marcela Ha MD, [facility] CPT-4: 92150 03/01/2017 ([id number]) 22242 EST. PATIENT, LEVEL III Diagnosis: Cough[ICD10: R05] Diagnosis: Nasal congestion[ICD10: R09.81] Diagnosis: Acute recurrent maxillary sinusitis[ICD10: J01.01] Marcela Ha MD, [facility] CPT-4: 76717 02/16/2017 ([id number]) 49741 EST. PATIENT, LEVEL III Diagnosis: Type 2 diabetes mellitus with hyperglycemia[ICD10: E11.65] Marcela Ha MD [facility] CPT-4: 96787 02/12/2017 ([id number]) 90063 EST. PATIENT, LEVEL IV Diagnosis: Type 2 diabetes mellitus with hyperglycemia[ICD10: E11.65] Diagnosis: Muscle weakness (generalized)[ICD10: M62.81] Diagnosis: Disorientation, unspecified[ICD10: R41.0] Marcela Ha MD [facility] CPT-4: 51769 02/05/2017 ([id number]) Patient admitted to the hospital from clinic (NO CHARGE) Diagnosis: Type 2 diabetes mellitus with hyperglycemia[ICD10: E11.65] Diagnosis: Disorientation, unspecified[ICD10: R41.0] Diagnosis: Muscle weakness (generalized)[ICD10: M62.81] Marcela Ha MD [facility] CPT-4: 66427D 01/29/2017 ([id number]) Miscellaneous no charge Diagnosis: Cellulitis of right lower limb[ICD10: L03.115] Marcela Ha MD [facility] CPT-4: 09105 10/13/2016 ([id number]) Miscellaneous no charge Diagnosis: Type 2 diabetes mellitus with foot ulcer[ICD10: E11.621] Diagnosis: Pain in right foot[ICD10: M79.671] Marcela Ha MD [facility] CPT-4: 46752 10/09/2016 28350 EST. PATIENT, LEVEL II Diagnosis: Cellulitis of right lower limb[ICD10: L03.115] Marcela Ha MD [facility] CPT-4: 25026 10/06/2016 ([id number]) 33738 EST. PATIENT, LEVEL IV Diagnosis: Low back pain[ICD10: M54.5] Diagnosis: Other deformities of toe(s) (acquired), left foot[ICD10: M20.5X2] Diagnosis: Type 2 diabetes mellitus with foot ulcer[ICD10: E11.621] Marcela Ha MD [facility] CPT-4: 07190 07/18/2016 ([id number]) 44668 EST. PATIENT, LEVEL III Diagnosis: Type 2 diabetes mellitus with hyperglycemia[ICD10: E11.65] Marcela Ha MD [facility] CPT-4: 50952 06/22/2016 ([id number]) 47806 EST. PATIENT, LEVEL IV Diagnosis: Type 2 diabetes mellitus with hyperglycemia[ICD10: E11.65] Diagnosis: Mixed hyperlipidemia[ICD10: E78.2] Diagnosis: Other hemoglobinopathies[ICD10: D58.2] Marcela Ha MD, [facility] CPT-4: 40728 05/23/2016 ([id number]) 37825 EST. PATIENT, LEVEL IV Diagnosis: Type 2 diabetes mellitus with other specified complication[ICD10: E11.69] Diagnosis: Dehydration[ICD10: E86.0] Marcela Ha MD, [facility] CPT-4: 33635 05/15/2016 ([id number]) OFFICE VISIT, NEW - LEVEL 3 Diagnosis: Allergic contact dermatitis due to plants, except food[ICD10: L23.7] Madeline Ha MD, [facility] CPT-4: 78321 01/20/2016 Plan of Care Planned Activity Notes Codes Status Date Visit Plan: Bronchitis - acute case of [...] improved, or if symptoms acutely worsen. 10/14/2018 Patient Education: Patient Medication Summary Completed 10/14/2018 Care Plan: Culture Sputum Pending 10/14/2018 Care Plan: CHEST X-RAY 2VW FRONTAL&LATL LOINC : 12502-4 Pending 10/14/2018 Visit Plan: URI - Pt [...] allergy spray. 09/30/2018 App[facility]ment[facility] [phone] [facility] (15 min) Moderate 09/30/2018 Patient Education: Patient [...] Hgb A1C 09/09/2018 Appointment: Marcela Oshea WPtel: [phone] (15 min) Moderate 09/09/2018 Patient Education: Patient Medication Summary Completed 09/09/2018 Patient Education: Patient Medication Summary Completed 09/06/2018 Patient Education: Cholesterol Management Completed 09/06/2018 Care Plan: Comp Metabolic Pending 09/06/2018 Care Plan: Cbc With Differential Pending 09/06/2018 Care Plan: %Hba1C LOINC : 50883-9 Pending 09/06/2018 Care Plan: Tsh Pending 09/06/2018 Care Plan: Lipid Pending 09/06/2018 Appointment: Marcela Oshea WPtel: [phone] (15 min) Moderate 08/26/2018 Appointment: Marcela Oshea WPtel: [phone] (15 min) Moderate 08/23/2018 Visit Plan: Hypertension [...] clinic. 07/22/2018 App[facility]ment: [facility] [phone] [facility] (15 min) Moderate 07/22/2018 Patient Education: Patient [...] time insomnia. 07/16/2018 Appointment: [facility] [phone] [phone] [place] (30 min) Complex 07/16/2018 Patient Education: Patient Medication Summary Completed 07/16/2018 Visit Plan: cough - improved - notify clinic if symptoms do not completely resolve, or with any questions or concerns. 07/01/2018 Appointment: [facility] [phone] [facility] (15 min) Moderate 07/01/2018 Patient Education: Patient [...] allergy spray. 06/28/2018 Appointment: Madeline Kennedy WPtel: [facility] (15 min) Moderate 06/28/2018 Patient Education: Patient Medication Summary Completed 06/28/2018 Patient Education: Patient Medication Summary Completed 06/21/2018 Care Plan: Annabel RICKS [place] Pending 06/21/2018 Visit Plan: Diabetes Mellitus - [...] at home. 06/18/2018 Appointment: Melida Ha WPtel: [facility] [address] (15 min) Moderate 06/18/2018 Patient Education: Patient [...] improves. 06/04/2018 Appointment: Melida Ha WPtel: [phone] [facility] (15 min) Moderate 06/04/2018 Patient Education: Patient [...] allow for greater blood glucose control. Joint yhbd-dfwwewty-upxwdpv- symptoms have improved -stop meloxicam due to upset stomach-call if symptoms return 05/13/2018 Appointment: Marcela Oshea WPtel: [phone] (30 min) Complex 05/13/2018 Patient Education: Patient Medication Summary Completed 05/13/2018 Visit Plan: Bilateral hip nekm-eugtcthv-rxeqhpp IM injection administered today for c/o continued myalgia/arthralgia. Patient to start taking Meloxicam 15mg PO daily. Advised to return to clinic if symptoms do not improve. 05/02/2018 Appointment: Marcela Oshea WPtel: [phone] [phone] [place] (30 min) Complex 05/02/2018 Patient Education: Patient [...] readings at home. Diabetes Mellitus -check labs Obyqdmsk-kppmoon-uogp bite-rx for doxycycline-follow up in 2 weeks 04/29/2018 Appointment: Marcela Oshea WPtel: [phone] [phone] [place] (15 min) Moderate 04/29/2018 Patient Education: Patient Medication Summary Completed 04/29/2018 Appointment: Melida Ha WPtel: [phone] [facility] [place] (15 min) Moderate 04/15/2018 Appointment: Marcela Oshea WPtel: [phone] [phone] [place] (30 min) Complex 03/21/2018 Visit Plan: Hypertension [...] on cymbalta 03/13/2018 Appointment: Melida Ha WPtel: [phone] [facility] [place] (30 min) Complex 03/13/2018 Patient Education: Patient Medication Summary Completed 03/13/2018 Visit Plan: DM-continue same medications-monitor blood sugars routinely as directed -rx for new glucometer and test strips provided Bipolar-currently depressed-patient start on vraylar-follow up in 2 weeks, sooner if needed. Patient and verbalied understanding of plan. Hypotension- stay off losartan 03/07/2018 Appointment: Marcela Oshea WPtel: [phone] [phone] (30 min) Complex 03/07/2018 Patient Education: Patient Medication Summary Completed 03/07/2018 Appointment: Melida Ha WPtel: [phone] [facility] (15 min) Moderate 03/04/2018 Visit Plan: Hypotension-continue [...] patient. 02/28/2018 Appointment: Marcela Oshea WPtel: [phone] [phone] (30 min) Complex 02/28/2018 Patient Education: Patient [...] not improving. 02/13/2018 Appointment: Madeline Kennedy WPtel: [facility] (15 min) Moderate 02/13/2018 Patient Education: Patient Medication Summary Completed 02/13/2018 Referral: Sun Glynn Patient informed. Referral info faxed. Completed Visit Plan: DM-weight loss-not checking blood sugars- patient sent for labs today HTN-low bdack-aptdfkh-ugwnz labs Callus of foot and fissue of heel-refer to Dr Glynn for evaluation Esophageal Reflux - the patient has been counseled against excessive intake of caffeine, spicy foods, peppermint , and cinnamon - all of which can exacerbate esophageal reflux. The patient is to take medications as prescribed and call the office if the symptoms are not improving. 01/29/2018 Appointment: Marcela Oshea WPtel: [phone] [place] (30 min) Complex 01/29/2018 Patient Education: Patient Medication Summary Completed 01/29/2018 Care Plan: Comp Metabolic Cancelled 01/29/2018 Care Plan: Cbc With Differential Cancelled 01/29/2018 Care Plan: %Hba1C LOINC : 84955-7 Cancelled 01/29/2018 Care Plan: Referral Order SNOMED-CT : [id number] Cancelled 01/29/2018 Visit Plan: Fatigue, malaise, joint [...] or concerns. 08/27/2017 Appointment: Madeline Kennedy WPtel: [facility] (15 min) Moderate 08/27/2017 Patient Education: [...] today - 08/16/2017 Appointment: Melida Ha WPtel: [phone] [facility] (30 min) Complex 08/16/2017 Patient Education: Patient Medication Summary Completed 08/16/2017 Patient Education: Obesity Completed 08/16/2017 Appointment: Madeline Kennedy WPtel: [facility] (30 min) Complex 08/07/2017 Visit Plan: [...] considered contagious. 07/26/2017 Appointment: Madeline Kennedy WPtel: [phone] [facility] [place] (15 min) Moderate 07/26/2017 Patient Education: Patient Medication Summary Completed 07/26/2017 Visit Plan: Cellulitis right foot-cultured today in the office-home health to reapply wound vac--appt with wound care on to evaluate for debridement- 07/03/2017 Appointment: Marcela Oshea WPtel: [phone] [phone] [place] (30 min) Complex 07/03/2017 Patient Education: Patient Medication Summary Completed 07/03/2017 Visit Plan: Abrasion left arm - Pt was instructed to keep the wound clean, wash with antibacterial soap, use triple antibiotic ointment, call if redness, pustular drainage, or any other acute concerns. 06/29/2017 Appointment: Marcela Oshea WPtel: [phone] (15 min) Moderate 06/29/2017 Patient Education: Patient [...] of plan. 06/18/2017 Appointment: Marcela Oshea WPtel: [phone] (15 min) Moderate 06/18/2017 Patient Education: Patient [...] diet-start prilosec 06/07/2017 Appointment: Marcela Oshea WPtel: [phone] (10 min) Simple 06/07/2017 Patient Education: [...] bite-continue doxycycline 05/17/2017 Appointment: Marcela Oshea WPtel: [phone] [address] (30 min) Complex 05/17/2017 Patient Education: Patient [...] calamine as directed- call if you want anai edge called into [facility]. 05/04/2017 Appointment: Marcela Oshea WPtel: [facility] (30 min) Complex 05/04/2017 Patient Education: Patient [...] home. Cough-resolved 03/15/2017 Appointment: Marcela Oshea WPtel: [phone] (15 min) Moderate 03/15/2017 Patient Education: Patient Medication Summary Completed 03/15/2017 Appointment: Marcela Oshea WPtel: [phone] [phone] (30 min) Complex 03/12/2017 Visit Plan: [...] as discussed 02/16/2017 Appointment: Marcela Oshea WPtel: [phone] (15 min) Moderate 02/16/2017 Patient Education: Patient [...] less controlled. 02/12/2017 Appointment: Marcela Oshea WPtel: [facility]3 [phone] (30 min) Complex 02/12/2017 Patient Education: Patient Medication Summary Completed 02/12/2017 Appointment: Marcela Oshea WPtel: [facility]5 [phone] (30 min) Complex 02/06/2017 Visit Plan: Diabetes [...] will consider 02/05/2017 Appointment: Marcela Oshea WPtel: [facility]5 [phone] (30 min) Complex 02/05/2017 Patient Education: Patient Medication Summary Completed 02/05/2017 Appointment: Marcela Oshea WPtel: [address] [place], [place] [phone] [place] (30 min) Complex 01/30/2017 Visit Plan: Acute confusion-uncontrolled diabetes- chronically noncompliant with treatment and stopped his insulin several months ago-r/o stroke vs DKA-Dr Ha in to evaluate patient-plan to admit for further work up and treatment-patient's called and she transported him to the hospital 01/29/2017 Appointment: Marcela Oshea WPtel: [facility]4 [phone] (30 min) Complex 01/29/2017 Patient Education: Patient Medication Summary Completed 01/29/2017 Patient Education: Obesity Completed 01/29/2017 Visit Plan: Right foot pain-MRI shows foreign body-appt with Dr Grewal for evaluation on Sunday. 10/13/2016 Appointment: Marcela Oshea WPtel: [facility]0 [phone] [place] (15 min) Moderate 10/13/2016 Patient Education: Patient Medication Summary Completed 10/13/2016 Appointment: Marcela Oshea WPtel: [facility]5 [phone] [place] (30 min) Complex 10/12/2016 Visit Plan: Right foot nnyw-gnahweoi-rywni washer dropped on foot-xray negative but pain continues to increase-recommend MRI of foot for further evaluation-refer to wound care for lesions on right foot, patient has diabetes and history of osteomyelitis-culture obtained today-continue oral abx- follow up in the office on , sooner if needed 10/09/2016 Visit Plan: Right foot xghd-gvxirqwe-xylqr washer dropped on foot-xray negative but pain continues to increase-recommend MRI of foot for further evaluation-refer to wound care for lesions on right foot, patient has diabetes and history of osteomyelitis-culture obtained today-continue oral abx- follow up in the office on , sooner if needed 10/09/2016 Visit Plan: Right foot cegh-obandbyg-pliha washer dropped on foot-xray negative but pain continues to increase-recommend MRI of foot for further evaluation-refer to wound care for lesions on right foot, patient has diabetes and history of osteomyelitis-culture obtained today-continue oral abx- follow up in the office on , sooner if needed 10/09/2016 Appointment: Marcela Oshea WPtel: [facility]1 [phone] (30 min) Complex 10/09/2016 Patient Education: Patient Medication Summary Completed 10/09/2016 Visit Plan: Cellulitis - continue with oral antibiotics as previously directed, return to clinic as previously directed, call for acute change in symptoms, worsening redness, warmth, discharge. 10/06/2016 Appointment: aMrcela Oshea WPtel: [facility]9 [phone] (10 min) Simple 10/06/2016 Patient Education: Patient Medication Summary Completed 10/06/2016 Appointment: Marcela Oshea WPtel: [phone] (30 min) Complex 08/24/2016 Referral: Sun Glynn Referral Completed 07/21/2016 Visit Plan: Low back pain- history of spinal fusion- patient for xray lumbar spine-RX sent to [facility] and instructed on use-topical voltaren samples provided and instructed on use. Ok to use tylenol as needed as well. The patient is to call the office if the pain is worsening or does not improve. Pressure ulcer left 4th toe-refer to Dr Glynn for evaluation 07/18/2016 Appointment: Marcela Oshea WPtel: [facility]1 [phone] (30 min) Complex 07/18/2016 Patient Education: Patient Medication Summary Completed 07/18/2016 Patient Education: Obesity Completed 07/18/2016 Care Plan: Referral Order SNOMED-CT : [id number] Cancelled 07/18/2016 Visit Plan: Diabetes Mellitus - [...] control. 06/22/2016 Appointment: Marcela Oshea WPtel: [phone] [phone] (30 min) Complex 06/22/2016 Patient Education: Patient [...] today 05/23/2016 [facility]ment: [phone] ([facility]) Complex 05/23/2016 Patient Education: Patient [...] of plan. 05/15/2016 Appointment: Marcela Oshea WPtel: [phone] (15 min) Moderate 05/15/2016 Patient Education: Patient [...] in the nasal steroid allergy spray. REPEAT CBC Toujeo 10 units daily . [...] days-use calamine as directed-call if you want anai edge called into [facility]. 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 Low back pain- history of spinal fusion-patient for xray lumbar spine-RX sent to [facility] pharmacy and instructed on use-topical voltaren samples [...] for fracture from injury . Right foot arhf-fdenjiat-kxlvp washer dropped on foot-xray negative but pain [...] for fracture from injury . Right foot pvle-ienvkezm-cutxc washer dropped on foot-xray negative but pain [...] for fracture from injury . Right foot qisk-gsloutqa-ffuks washer dropped on foot-xray negative but pain continues to increase-recommend MRI of foot for further evaluation-refer to wound care for lesions on right foot, patient has diabetes and history of osteomyelitis-culture obtained today-continue oral abx-follow up in the office on , sooner if needed . Bilateral hip ibrz-dfflbpoy-ofrtygj IM injection administered today for c/o continued myalgia/arthralgia. Patient to start taking Meloxicam 15mg PO daily. Advised to return to clinic if symptoms do not improve. . DM-weight loss-not checking blood sugars-patient sent for labs today HTN-low fvxqc-cbyvver-zjipb labs Callus of foot and fissue of [...] readings are starting to become less controlled. Ysoqhnccv-uqivvjkn-yuobswjm to monitor Generalized weakness-refer for PT-patient refuses [...] allow for greater blood glucose control. Joint rxuu-nkmauukp-tqdjhtn-symptoms have improved -stop meloxicam due to upset [...] readings at home. Diabetes Mellitus -check labs Fokvjuew-tetrisz-spza bite-rx for doxycycline-follow up in 2 weeks [...]
--- OUTSIDE RECORDS SUMMARY | 2018-10-20 10:49 | XMS REPORT | CCD ---
Author Author Madeline Kennedy MD, [facility] Address [address] [place] [address] Phone Care Team Providers [facility] Name Role Phone PP Unavailable CCM Unavailable Summary Purpose Interface Exchange Insurance Providers Payer name Policy type / Coverage type Covered constitution party ID Effective Begin Date Effective End Date Blue Cross Blue Shield [facility] Blue Cross/Blue Shield [id number] Unknown Family history Father Diagnosis Age At Onset Hyperlipidemia Unknown Heart Attack Unknown Mother Diagnosis Age At Onset Hypertension Unknown Social History Social History Element Codes Description Effective Dates Marital status Unknown Mignon 01/20/2016 Number of children Unknown 4 01/20/2016 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/[address]: 419648187 Never smoker 01/20/[address]: 547921354 Never drinks alcohol 01/20/2016 Allergies, Adverse Reactions, [...] mL (0.083 %) solution for nebulization RxNorm: 106703 3 Milliliter(s) INH UD 10/14/2018 No Stop Date Active Levaquin 500 mg tablet RxNorm: 244835 1 Tablet(s) PO daily 08/201810/20/2018 Active Tessalon Perles 100 mg capsule RxNorm: 383861 1-2 Capsule(s) PO TID PRN 10/14/2018 No Stop Date Active Coreg 6.25 mg tablet RxNorm: 734571 TAKE ONE TABLET BY MOUTH TWICE A DAY 09/30/2018 03/28/2019 Active albuterol sulfate 2.5 mg/3 mL (0.083 %) solution for nebulization RxNorm: 268599 3 Milliliter(s) INH UD 09/30/201807/2018 Inactive Kenalog 40 mg/mL suspension for injection RxNorm: 3700131 1.5 Milliliter(s) Inj 09/30/2018 09/30/2018 Inactive Keflex 500 mg capsule RxNorm: 507811 1 Capsule(s) PO TID 201710/03/2018 Inactive prednisone 20 mg tablet RxNorm: 422525 2 Tablet(s) PO daily 09/29/2018 Inactive Kenalog 40 mg/mL suspension for injection RxNorm: 5588331 Milliliter(s) Inj 09/11/2018 09/11/2018 Inactive Zyrtec 10 mg tablet RxNorm: 6888927 1 Tablet(s) PO daily 09/0910/08/2018 Inactive Keflex 500 mg capsule RxNorm: 345437 1 Capsule(s) PO TID 201709/15/2018 Inactive Tresiba FlexTouch U-200 insulin 200 unit/mL (3 mL) subcutaneous pen RxNorm: 9133640 50 Unit(s) SQ daily 08/30/2018 08/29/2018 Inactive please give him 30 day supply Tresiba FlexTouch U-200 insulin 200 unit/mL (3 mL) subcutaneous pen RxNorm: 1845007 50 Unit(s) SQ daily 08/30/2018 09/28/2018 Inactive please give him 30 day supply Novolog Flexpen U-100 Insulin aspart 100 unit/mL subcutaneous RxNorm: 3626694 8 Unit(s) SQ AC 08/13/2018 No Stop Date Active Novolog Flexpen U-100 Insulin aspart 100 unit/mL subcutaneous RxNorm: 1173213 8 Unit(s) SQ AC 07/22/20182017 Inactive this is an update on his medication Novolog Flexpen U-100 Insulin aspart 100 unit/mL subcutaneous RxNorm: 4285434 12 Unit(s) SQ AC 07/05/20182017 Inactive this is an update on his medication Ronaldujose SigalaoStar U-300 Insulin 300 unit/mL (1.5 mL) subcutaneous pen RxNorm: 9550955 INJECT 50 UNITS UNDER THE SKIN DAILY 07/01/2018 08/29/2018 Inactive Mucinex 600 mg tablet, extended release RxNorm: 050868 1 Tablet(s) PO BID 06/28/2018 07/04/2018 Inactive Zofran 4 mg tablet RxNorm: 762021 1 Tablet(s) PO TID as needed nausea 06/28/2018 07/02/2018 Inactive Kenalog 40 mg/mL suspension for injection RxNorm: 0237763 Milliliter(s) Inj 06/28/2018 06/28/2018 Inactive Flonase Allergy Relief 50 mcg/actuation nasal spray, suspension RxNorm: 6715968 1 [place] NASAL BID 06/28/20182017 Inactive Lyrica 50 mg capsule RxNorm: 316805 Capsule(s) PO daily 201707/07/2018 Inactive Novolog Flexpen U-100 Insulin aspart 100 unit/mL subcutaneous RxNorm: 8043969 10 Unit(s) SQ AC 06/18/20182017 Inactive this is an update on his medication Lasix 20 mg tablet RxNorm: 991301 1 Tablet(s) PO BIW 201707/02/2018 Inactive atorvastatin 80 mg tablet RxNorm: 963712 1 Tablet(s) PO QHS 04/201812/06/2018 Active clonazepam 1 mg tablet RxNorm: 091496 2 Tablet(s) PO HS 201706/04/2019 Active clonazepam 1 mg tablet RxNorm: 938034 2 Tablet(s) PO HS as needed 06/10/2018 06/09/2018 Inactive Lyrica 50 mg capsule RxNorm: 613481 Capsule(s) PO daily 201707/08/2018 Inactive Lasix 20 mg tablet RxNorm: 275512 1 Tablet(s) PO TIW 201706/11/2018 Inactive Toujeo SoloStar U-300 Insulin 300 unit/mL (1.5 mL) subcutaneous pen RxNorm: 8007654 50 Unit(s) SQ daily 05/07/2018 06/30/2018 Inactive meloxicam 15 mg tablet RxNorm: 846346 15 Milligram(s) PO daily 05/02/2018 05/12/2018 Inactive ketorolac 30 mg/mL injection solution RxNorm: 128866 2 Milliliter(s) Inj 05/02/2018 05/02/2018 Inactive Toujeo SoloStar U-300 Insulin 300 unit/mL (1.5 mL) subcutaneous pen RxNorm: 1113005 45 Unit(s) daily 04/29/2018 Inactive clonazepam 1 mg tablet RxNorm: 808469 1 Tablet(s) PO Q8 as needed 04/29/2018 06/09/2018 Inactive doxycycline hyclate 100 mg tablet RxNorm: 1725381 1 Tablet(s) PO BID 04/29/2018 05/12/2018 Inactive Cymbalta 30 mg capsule,delayed release RxNorm: 159639 1 Capsule(s) PO QAM 03/13/2018 10/08/2018 Inactive Lexapro 10 mg tablet RxNorm: 875834 1 Tablet(s) PO QPM 201703/03/2018 Inactive Toujeo SoloStar U-300 Insulin 300 unit/mL (1.5 mL) subcutaneous pen RxNorm: 6693053 20 Unit(s) daily 02/28/2018 Inactive Protonix 40 mg tablet,delayed release RxNorm: 481082 1 Tablet(s) PO daily 01/29/2018 06/09/2018 Inactive clonazepam 1 mg tablet RxNorm: 275118 1 Tablet(s) PO Q8 as needed 12/12/2017 03/10/2018 Inactive Tamiflu 75 mg capsule RxNorm: 550104 1 Capsule(s) PO BID 201712/03/2017 Inactive doxycycline hyclate 100 mg capsule RxNorm: 4105893 1 Capsule(s) PO BID 09/07/2017 09/20/2017 Inactive doxycycline hyclate 100 mg capsule RxNorm: 1199438 1 Capsule(s) PO BID 08/27/2017 09/06/2017 Inactive prednisone 20 mg tablet RxNorm: 123693 2 Tablet(s) PO daily 08/31/2017 Inactive clopidogrel 75 mg tablet RxNorm: 495869 1 Tablet(s) PO daily 06/09/2018 Inactive atorvastatin 40 mg tablet RxNorm: 248932 1 Tablet(s) PO QHS 02/27/2018 Inactive losartan 25 mg tablet RxNorm: 624780 TAKE ONE TABLET BY MOUTH DAILY 08/22/2017 06/09/2018 Inactive Toujeo SoloStar 300 unit/mL (1.5 mL) subcutaneous insulin pen RxNorm: 3932428 45 Unit(s) daily 08/17/2017 08/20/2017 Inactive mupirocin 2 % topical ointment RxNorm: 206403 1 Application TOP TID to the lesions on chest 08/16/2017 08/25/2017 Inactive Toujeo SoloStar 300 unit/mL (1.5 mL) subcutaneous insulin pen RxNorm: 6643721 40 Unit(s) daily 08/16/2017 08/16/2017 Inactive valacyclovir 1 gram tablet RxNorm: 313582 1 Tablet(s) PO TID 08/01/2017 Inactive clonazepam 1 mg tablet RxNorm: 533738 1 Tablet(s) PO Q8 as needed 07/03/2017 09/30/2017 Inactive Levaquin 500 mg tablet RxNorm: 234320 1 Tablet(s) PO daily 06/25/2017 Inactive Levaquin 500 mg tablet RxNorm: 825584 1 Tablet(s) PO daily 06/21/2017 Inactive losartan 25 mg tablet RxNorm: 098602 1 Tablet(s) PO daily 201608/16/2017 Inactive nystatin 100,000 unit/mL oral suspension RxNorm: 621748 5 Milliliter(s) PO QID Swish et swallow 06/18/2017 06/17/2017 Inactive nystatin 100,000 unit/mL oral suspension RxNorm: 580927 5 Milliliter(s) PO QID Swish et swallow 06/18/2017 06/27/2017 Inactive Cipro 500 mg tablet RxNorm: 554666 1 Tablet(s) PO BID 201606/18/2017 Inactive Cipro 500 mg tablet RxNorm: 661589 1 Tablet(s) PO BID 201606/11/2017 Inactive Toujeo SoloStar 300 unit/mL (1.5 mL) subcutaneous insulin pen RxNorm: 8475806 INJECT 10 UNITS UNDER THE SKIN DAILY 06/12/2017 08/15/2017 Inactive Keflex 500 mg capsule RxNorm: 581300 1 Capsule(s) PO TID 201606/13/2017 Inactive doxycycline hyclate 100 mg capsule RxNorm: 1851964 1 Capsule(s) PO BID 05/17/2017 05/21/2017 Inactive doxycycline hyclate 100 mg capsule RxNorm: 7514956 1 Capsule(s) PO BID 05/11/2017 05/16/2017 Inactive losartan 25 mg tablet RxNorm: 841621 1 Tablet(s) PO daily 201606/17/2017 Inactive atorvastatin 40 mg tablet RxNorm: 359083 1 Tablet(s) PO daily 03/01/2017 08/23/2017 Inactive clopidogrel 75 mg tablet RxNorm: 456298 1 Tablet(s) PO daily 08/23/2017 Inactive Flonase Allergy Relief 50 mcg/actuation nasal spray, suspension RxNorm: 2808854 2 [place] NASAL daily 02/16/20172016 Inactive Augmentin 875 mg-125 mg tablet RxNorm: 335635 1 Tablet(s) PO BID 02/16/2017 02/22/2017 Inactive GET PROBIOTIC TO TAKE WHILE ON ABX Tamiflu 75 mg capsule RxNorm: 950353 1 Capsule(s) PO BID 201602/20/2017 Inactive ceftriaxone 500 mg solution for injection RxNorm: 9168535 1 Milliliter(s) Inj 02/16/2017 02/16/2017 Inactive Kenalog 40 mg/mL suspension for injection RxNorm: 8058924 1 Milliliter(s) Inj 02/16/2017 02/16/2017 Inactive Toujeo SoloStar 300 unit/mL (1.5 mL) subcutaneous insulin pen RxNorm: 8797389 25 Unit(s) SQ QAM 02/12/2017 06/10/2017 Inactive Toujeo SoloStar 300 unit/mL (1.5 mL) subcutaneous insulin pen RxNorm: 2162466 10 Unit(s) SQ QAM 02/05/2017 02/11/2017 Inactive lisinopril 10 mg tablet RxNorm: 285265 1 Tablet(s) PO daily 02/28/2017 Inactive atorvastatin 40 mg tablet RxNorm: 065013 1 Tablet(s) PO daily 02/01/2017 02/28/2017 Inactive doxycycline hyclate 100 mg capsule RxNorm: 2661491 1 Capsule(s) PO BID 02/01/2017 02/10/2017 Inactive clonazepam 1 mg tablet RxNorm: 072726 1 Tablet(s) PO Q8 as needed 10/09/2016 01/05/2017 Inactive ceftriaxone 1 gram solution for injection RxNorm: 3181269 Inj 10/06/2016 10/06/2016 Inactive cyclobenzaprine 10 mg tablet RxNorm: 753874 1/2-1 Tablet(s) PO TID PRN 07/18/2016 01/28/2017 Inactive clonazepam 1 mg tablet RxNorm: 106607 1 Tablet(s) PO Q8 as needed 05/31/2016 05/29/2016 Inactive clonazepam 1 mg tablet RxNorm: 821101 1 Tablet(s) PO Q8 as needed 05/31/2016 08/28/2016 Inactive Toujeo SoloStar 300 unit/mL (1.5 mL) subcutaneous insulin pen RxNorm: 9948638 10 Unit(s) SQ daily 05/23/2016 01/28/2017 Inactive Crestor 10 mg tablet RxNorm: 228019 1 Tablet(s) PO QHS 201501/28/2017 Inactive Crestor 10 mg tablet RxNorm: 229632 1 Tablet(s) PO QHS 201505/18/2016 Inactive clonazepam 1 mg tablet RxNorm: 961545 1 Tablet(s) PO Q8 as needed 04/25/2016 05/30/2016 Inactive prednisone 20 mg tablet RxNorm: 700619 3 Tablet(s) PO daily 06/201602/10/2016 Inactive prednisone 20 mg tablet RxNorm: 549910 3 Tablet(s) PO daily 06/201605/14/2016 Inactive Kenalog 40 mg/mL suspension for injection RxNorm: 2893376 Milliliter(s) Inj 01/20/2016 01/20/2016 Inactive aspirin 81 mg tablet,delayed release RxNorm: 569740 1 Tablet(s) PO daily No Start Date Active Brilinta 90 mg tablet RxNorm: 7154830 1 Tablet(s) PO BID No Start Date Active valsartan 80 mg tablet RxNorm: 449891 1 Tablet(s) PO daily No Start Date Active acetaminophen 500 mg tablet RxNorm: 682916 1-2 Tablet(s) PO as needed No Start Date Active clopidogrel 75 mg tablet RxNorm: 366569 1 Tablet(s) PO daily No Start Date 02/28/2017 Inactive Novolog Flexpen U-100 Insulin aspart 100 unit/mL subcutaneous RxNorm: 4586599 5 units with breakfast lunch and 10 supper Unit(s) SQ No Start Date 06/17/2018 Inactive clonazepam 1 mg tablet RxNorm: 513226 1 Tablet(s) PO QHS No Start Date 04/24/2016 Inactive Coreg 6.25 mg tablet RxNorm: 111691 1 Tablet(s) PO BID No Start Date 09/29/2018 Inactive acyclovir 400 mg tablet RxNorm: 702128 2 Tablet(s) PO 5x daily No Start Date 02/28/2017 Inactive Lyrica 50 mg capsule RxNorm: 101139 Capsule(s) PO BID No Start Date 06/09/2018 Inactive Vraylar 3 mg capsule RxNorm: 5441935 1 Capsule(s) PO daily No Start Date 03/12/2018 Inactive Medication Administered Medication Codes Instructions Start Date Status Kenalog 40 mg/mL suspension for injection RxNorm: 2084813 1.5Milliliter 09/30/2018 No longer Active Kenalog 40 mg/mL suspension for injection RxNorm: 3194383 Milliliter 09/11/2018 No longer Active Kenalog 40 mg/mL suspension for injection RxNorm: 0094573 Milliliter 06/28/2018 No longer Active ketorolac 30 mg/mL injection solution RxNorm: 359053 2Milliliter 05/02/2018 No longer Active ceftriaxone 500 mg solution for injection RxNorm: 8296025 1Milliliter 02/16/2017 No longer Active Kenalog 40 mg/mL suspension for injection RxNorm: 8684342 1Milliliter 02/16/2017 No longer Active ceftriaxone 1 gram solution for injection RxNorm: 2416496 10/06/2016 No longer Active Kenalog 40 mg/mL suspension for injection RxNorm: 3245815 Milliliter 01/20/2016 No longer Active Immunizations Vaccine [...] GRP Triglyceride TNP:Duplicate Order 2017 LIPID GRP 5227245 HDL CHOLESTEROL TNP:Duplicate Order 2017 LIPID GRP Chol/HDL Ratio TNP:Duplicate Order 2017 LIPID GRP LDL Cholesterol TNP:Duplicate Order 2017 A1C HPLC 1927915 Hgb A1c 80358-4 TNP:Duplicate Order 2017 C Diff An [id number] GD TNP:Lab Request 06/22/2018 C Diff An [id number] Toxin A/B TNP:Lab Request 06/22/2018 C Diff An [id number] C Diff Analyzer TNP:Lab Request 2017 C Diff An [id number] IC OK? TNP:Lab Request 06/22/2018 CBC [id number] WBC 6.4 10e9/L 05/02/2018 CBC 7917265 RBC 5.60 10e12/L 05/02/2018 CBC 7505574 HEMOGLOBIN 17.0 g/dL 05/02/2018 CBC 3686494 HEMATOCRIT 48.0 % 05/02/2018 CBC 2534255 MCV 85.7 fL 05/02/2018 CBC 7557478 MCH 30.4 pg 05/02/2018 CBC 3432453 MCHC 35.4 g/dL 05/02/2018 CBC 1751622 PLATELET COUNT 166 10e9/L 05/02/2018 CBC 8789318 Mean Plt Volume 11.6 fL 05/02/2018 CBC 4265690 Neut Auto 48.6 % 05/02/2018 CBC 7154596 Lymph Auto 41.7 % 05/02/2018 CBC 6561905 [place] Auto 8.1 % 05/02/2018 CBC 2088293 RDW 13.1 % 05/02/2018 CBC 6187700 Eos Auto 1.1 % 05/02/2018 CBC 4985813 Baso Auto 0.5 % 05/02/2018 CBC 0718178 Neutrophil Abs 3.11 10e9/L 05/02/2018 CBC 1384016 Lymphocyte Abs 2.67 10e9/L 05/02/2018 CBC 3423595 Monocyte Abs 0.52 10e9/L 05/02/2018 CBC 6011243 Eosinophil Abs 0.07 10e9/L 05/02/2018 CBC 2459894 RDW-SD 40.0 fL 05/02/2018 CBC 7016600 Basophil Abs 0.03 10e9/L 05/02/2018 CHEM 14 6475842 AST 17 U/L 05/02/2018 CHEM 14 5567238 ALT 17 U/L 05/02/2018 CHEM 14 6713922 BUN 17 mg/dL 05/02/2018 CHEM 14 5523288 ALBUMIN 4.0 g/dL 05/02/2018 CHEM 14 3176567 CHLORIDE 97 mmol/L 05/02/2018 CHEM 14 5756727 Bili Total 0.9 mg/dL 05/02/2018 CHEM 14 2911552 ALK PHOS 67 U/L 05/02/2018 CHEM 14 2357498 SODIUM 135 mmol/L 05/02/2018 CHEM 14 2794963 CREATININE 1.18 mg/dL 05/02/2018 CHEM 14 9066702 CALCIUM 9.4 mg/dL 05/02/2018 CHEM 14 0394507 POTASSIUM 4.4 mmol/L 05/02/2018 CHEM 14 8156290 TOTAL PROTEIN 6.9 g/dL 05/02/2018 CHEM 14 1138404 GLUCOSE 316 mg/dL 05/02/2018 CHEM 14 5788035 Bicarbonate 29 mmol/L 05/02/2018 CHEM 14 6493940 AGAP 9 mmol/L 05/02/2018 MEAN GLUC 1325517 Calc Mean Gluc 283 mg/dL 05/02/2018 A1C HPLC 8704878 Hgb A1c 66516-7 11.5 % 05/02/2018 GFR CALC 0244775 GFR Non Afr Amr >60 mL/min 05/02/2018 GFR CALC 3896625 GFR Afr Amr >60 mL/min 05/02/2018 [facility] Gold [id number] JI Gold Complete 02/28/2018 GFR CALC 6617001 GFR Non Afr Amr >60 mL/min 02/28/2018 GFR CALC 0452956 GFR Afr Amr >60 mL/min 02/28/2018 UA W/CII 3427266 UA Urine Appear Normal 02/28/2018 UA W/CII 4857596 UA Protein 1+ 02/28/2018 UA W/CII 1404558 UA Hemoglobin Negative 02/28/2018 UA W/CII 2787983 UA Glucose 4+ 02/28/2018 UA W/CII 0443846 UA Ketones Trace 02/28/2018 UA W/CII 1777960 UA pH 5.5 02/28/2018 UA W/CII 3299180 U Spec [place] 1.015 02/28/2018 UA W/CII 3267348 UA Bilirubin Negative 02/28/2018 UA W/CII 4159912 UA Nitrite NEG 02/28/2018 UA W/CII 2340252 UA Leuk Esteras Negative 02/28/2018 MICR 0942910 UA WBC/hpf 1 02/28/2018 MICR 9447311 UA RBC hpf 2 02/28/2018 MICR 2746599 UA WBC auto 3.8 /uL 02/28/2018 MICR 2482448 UA RBC auto 12.2 /uL 02/28/2018 MICR 4285668 UA SQ EPI auto 2.3 /uL 02/28/2018 MICR 5962600 UA H Cast auto 0.10 /uL 02/28/2018 CBC 9608515 WBC 6.4 10e9/L 02/28/2018 CBC 5159027 RBC 5.51 10e12/L 02/28/2018 CBC 5665722 HEMOGLOBIN 16.7 g/dL 02/28/2018 CBC 2179548 HEMATOCRIT 46.9 % 02/28/2018 CBC 4655353 MCV 85.1 fL 02/28/2018 CBC 2002479 MCH 30.3 pg 02/28/2018 CBC 9937037 MCHC 35.6 g/dL 02/28/2018 CBC 8009170 PLATELET COUNT 173 10e9/L 02/28/2018 CBC 3885322 Mean Plt Volume 11.6 fL 02/28/2018 CBC 8571475 Neut Auto 51.8 % 02/28/2018 CBC 5761742 Lymph Auto 39.9 % 02/28/2018 CBC 0241687 [place] Auto 7.3 % 02/28/2018 CBC 0823843 Eos Auto 0.8 % 02/28/2018 CBC 2005546 RDW 13.3 % 02/28/2018 CBC 1506238 Baso Auto 0.2 % 02/28/2018 CBC 9978675 Neutrophil Abs 3.32 10e9/L 02/28/2018 CBC 7057938 Lymphocyte Abs 2.55 10e9/L 02/28/2018 CBC 8967294 Monocyte Abs 0.47 10e9/L 02/28/2018 CBC 7997843 Eosinophil Abs 0.05 10e9/L 02/28/2018 CBC 6487610 Basophil Abs 0.01 10e9/L 02/28/2018 CBC 9534802 RDW-SD 40.8 fL 02/28/2018 CHEM 14 4562019 AST 17 U/L 02/28/2018 CHEM 14 1549419 ALT 17 U/L 02/28/2018 CHEM 14 2604667 BUN 20 mg/dL 02/28/2018 CHEM 14 2211595 ALBUMIN 4.1 g/dL 02/28/2018 CHEM 14 9348342 CHLORIDE 97 mmol/L 02/28/2018 CHEM 14 6830926 Bili Total 1.3 mg/dL 02/28/2018 CHEM 14 3658524 ALK PHOS 78 U/L 02/28/2018 CHEM 14 8470511 SODIUM 135 mmol/L 02/28/2018 CHEM 14 2164302 CREATININE 1.09 mg/dL 02/28/2018 CHEM 14 8931831 CALCIUM 9.6 mg/dL 02/28/2018 CHEM 14 3627192 POTASSIUM 3.8 mmol/L 02/28/2018 CHEM 14 7504102 TOTAL PROTEIN 7.3 g/dL 02/28/2018 CHEM 14 3125479 GLUCOSE 349 mg/dL 02/28/2018 CHEM 14 5866372 Bicarbonate 29 mmol/L 02/28/2018 CHEM 14 9008248 AGAP 9 mmol/L 02/28/2018 [place] Spotted Fever Igg/Igm 968507 FEI MT SPOTTED FEVER IGM EIA . 09/05/2017 [place] Spotted Fever Igg/Igm 095771 RMSF, IGM 0.17 index 09/05/2017 [place] Spotted Fever Igg/Igm 512657 FEI MT SPOTTED FEVER IGG EIA FLEX . 09/05/2017 [place] Spotted Fever Igg/Igm 537099 RMSF, IGG SCREEN-FLEX Positive 09/05/2017 Fei Mtn Spot'D Fev Igg 484129 RMSF, IGG -TITER IFA <1:64 11/2016 Ehrlichia Chaffeensis Antibody Igm 150443 EHRLICHIA CHAFFEENSIS IGM < 1:16 09/03/2017 Ehrlichia Chaffeensis Antibody Igg 973800 EHRLICHIA CHAFFEENSIS IGG <1:64 09/03/2017 Lymes Disease Total Antibodies With Western Blot Reflex B. BURGDORFERI, IGG/IGM 0.223 08/30/2017 Lymes Disease Total Antibodies With Western Blot Reflex C-Reactive Protein Qnt Crqnt CRP 0.00 mg/dl 08/27/2017 Sed Rate Ord21 ESR 8 mm/hr 08/27/2017 Comp Metabolic Oba150 NA 135 mEq/L 08/16/2017 Comp Metabolic Qrm051 K 4.1 mEq/L 08/16/2017 Comp Metabolic Pnm219 CL 98 mEq/L 08/16/2017 Comp Metabolic Aov814 CO2 28.0 mEq/L 08/16/2017 Comp Metabolic Iwf459 ANION GAP 13 08/16/2017 Comp Metabolic Srb759 GLUCOSE 299 mg/dL 08/16/2017 Comp Metabolic Ove269 Creat 0.9 mg/dL 08/16/2017 Comp Metabolic Gna886 eGFR 90 ml/min/1.73m2 08/16/2017 Comp Metabolic Ect037 BUN 20 mg/dL 08/16/2017 Comp Metabolic Yvr853 B/C Ratio 21.5 Ratio 08/16/2017 Comp Metabolic Dpb523 CALCIUM 9.2 mg/dL 08/16/2017 Comp Metabolic Spu850 ALK PHOS 84 U/L 08/16/2017 Comp Metabolic Egg901 AST(SGOT) 19 U/L 08/16/2017 Comp Metabolic Hmu660 ALT(SGPT) 24 U/L 08/16/2017 Comp Metabolic Hwp887 BILI T 1.1 mg/dL 08/16/2017 Comp Metabolic Zze677 ALBUMIN 4.2 g/dL 08/16/2017 Comp Metabolic Xrn656 TPRO 7.2 g/dL 08/16/2017 Comp Metabolic Dnx168 GLOB 3.0 g/dL 08/16/2017 Comp Metabolic Rzt754 A/G Ratio 1.4 Ratio 08/16/2017 Comp Metabolic Vez721 Osmo 284 mOsmo 08/16/2017 %Hba1C Pwu912 % HbA1c 60668-5 12.5 % 08/16/2017 %Hba1C Krn224 Gluc Ave 312 mg/dL 08/16/2017 Urine Culture Ucult Complete NO Growth Day 2 06/23/2017 Urine Culture Ucult Preliminary NO Growth Day 1 06/23/2017 C RAP A SC [id number] Strep A Negative 06/08/2017 %Hba1C Aqz699 % HbA1c 08559-7 9.5 % 05/04/2017 %Hba1C Vvy818 Gluc Ave 226 mg/dL 05/04/2017 Tsh Ord6 [...] 31.7 pg 05/04/2017 Cbc With Differential Ord2 [place]% 8.5 % 05/04/2017 Cbc With Differential Ord2 [...] 2.48 K/ul 05/04/2017 Cbc With Differential Ord2 [place] ABS# 0.5 K/ul 05/04/2017 Cbc With Differential Ord2 Eos ABS# 0.1 K/ul 05/04/2017 Cbc With Differential Ord2 Baso ABS# 0.0 K/ul 05/04/2017 Comp Metabolic Bnr076 NA 135 mEq/L 05/04/2017 Comp Metabolic Aij021 K 4.2 mEq/L 05/04/2017 Comp Metabolic Umv453 CL 99 mEq/L 05/04/2017 Comp Metabolic Owi872 CO2 26.0 mEq/L 05/04/2017 Comp Metabolic Pug455 ANION GAP 14 05/04/2017 Comp Metabolic Ixv167 GLUCOSE 277 mg/dL 05/04/2017 Comp Metabolic Lqv726 Creat 0.9 mg/dL 05/04/2017 Comp Metabolic Cxs953 eGFR 96 ml/min/1.73m2 05/04/2017 Comp Metabolic Tom020 BUN 23 mg/dL 05/04/2017 Comp Metabolic Ttd790 B/C Ratio 26.1 Ratio 05/04/2017 Comp Metabolic Zwb979 CALCIUM 8.9 mg/dL 05/04/2017 Comp Metabolic Uga840 ALK PHOS 81 U/L 05/04/2017 Comp Metabolic Ieg949 AST(SGOT) 21 U/L 05/04/2017 Comp Metabolic Ljf028 ALT(SGPT) 27 U/L 05/04/2017 Comp Metabolic Ffl686 BILI T 1.2 mg/dL 05/04/2017 Comp Metabolic Fvt698 ALBUMIN 4.0 g/dL 05/04/2017 Comp Metabolic Gpv762 TPRO 6.7 g/dL 05/04/2017 Comp Metabolic Jyz804 GLOB 2.7 g/dL 05/04/2017 Comp Metabolic Ikw300 A/G Ratio 1.5 Ratio 05/04/2017 Comp Metabolic Qut482 [place] 284 mOsmo 05/04/2017 C A/B FLU 9620017 Influenza A Scr Negative 02/16/2017 C A/B FLU 7854271 Influenza B Scr Positive 02/16/2017 Cbc With [...] 30.3 pg 05/23/2016 Cbc With Differential Ord2 [place]% 8.8 % 05/23/2016 Cbc With Differential Ord2 [...] 2.07 K/ul 05/23/2016 Cbc With Differential Ord2 [place] ABS# 0.5 K/ul 05/23/2016 Cbc With Differential Ord2 Eos ABS# 0.1 K/ul 05/23/2016 Cbc With Differential Ord2 Baso ABS# 0.0 K/ul 05/23/2016 Lipid Ord30 CHOL 397 mg/dL 05/17/2016 Lipid Ord30 HDL 48.0 mg/dl 05/17/2016 Lipid Ord30 TRIG 578 mg/dL 05/17/2016 Lipid Ord30 LDL Unable to calculate Due to elevated triglycerides mg/dL 05/17/2016 Lipid Ord30 C/HDL 8.3 Ratio 05/17/2016 %Hba1C Jub398 % HbA1c 39023-0 12.4 % 05/16/2016 %Hba1C Qye549 Gluc Ave 309 mg/dL 05/16/2016 Cbc With [...] 87.4 fl 05/15/2016 Cbc With Differential Ord2 [place]% 7.8 % 05/15/2016 Cbc With Differential Ord2 [...] 2.04 K/ul 05/15/2016 Cbc With Differential Ord2 [place] ABS# 0.5 K/ul 05/15/2016 Cbc With Differential Ord2 Eos ABS# 0.1 K/ul 05/15/2016 Cbc With Differential Ord2 Baso ABS# 0.0 K/ul 05/15/2016 Tsh Ord6 hTSH II 1.70 uIU/mL 05/15/2016 Comp Metabolic Fcj096 NA 135 mEq/L 05/15/2016 Comp Metabolic Kou861 K 3.9 mEq/L 05/15/2016 Comp Metabolic Ohn080 CL 96 mEq/L 05/15/2016 Comp Metabolic Bjk408 CO2 27.0 mEq/L 05/15/2016 Comp Metabolic Fvu276 ANION GAP 16 05/15/2016 Comp Metabolic Xyu351 GLUCOSE 183 mg/dL 05/15/2016 Comp Metabolic Kxu173 Creat 1.1 mg/dL 05/15/2016 Comp Metabolic Obr827 eGFR 71 ml/min/1.73m2 05/15/2016 Comp Metabolic Dob050 BUN 17 mg/dL 05/15/2016 Comp Metabolic Nfr086 B/C Ratio 14.9 Ratio 05/15/2016 Comp Metabolic Ywo680 CALCIUM 9.6 mg/dL 05/15/2016 Comp Metabolic Xyt285 ALK PHOS 100 U/L 05/15/2016 Comp Metabolic Clb724 AST(SGOT) 20 U/L 05/15/2016 Comp Metabolic Ngc659 ALT(SGPT) 20 U/L 05/15/2016 Comp Metabolic Rqi855 BILI T 1.3 mg/dL 05/15/2016 Comp Metabolic Szn681 ALBUMIN 4.6 g/dL 05/15/2016 Comp Metabolic Qzh233 TPRO 8.1 g/dL 05/15/2016 Comp Metabolic Pgo341 GLOB 3.5 g/dL 05/15/2016 Comp Metabolic Oct157 A/G Ratio 1.3 Ratio 05/15/2016 Comp Metabolic Uqc290 [place]sm[place] 276 mOsmo 05/15/2016 Review of Systems [...] of skin Location: face 05/04/2017 patch left mosque Full Exam - General 1994 Constitutional general [...] CPT-4: J3301 09/30/2018 THER/PROPH/DIAG INJ SC/IM CPT-4: 81989 09/11/2018 TRIAMCINOLONE ACET INJ NOS CPT-4: J3301 09/11/2018 IMMUNIZATION ADMIN CPT -4: 26264 07/22/2018 FLU VAC NO PRSV 4 MENA 3 YRS+ CPT-4: 12287 07/22/2018 TRIAMCINOLONE ACET INJ NOS CPT-4: J3301 06/28/2018 KETOROLAC TROMETHAMINE INJ CPT-4: J1885 05/02/2018 FLU VAC NO PRSV 4 MENA 3 YRS+ CPT-4: 36637 08/16/2017 IMMUNIZATION ADMIN CPT -4: 44361 08/16/2017 URINALYSIS NONAUTO W/O SCOPE CPT-4: 14454 06/21/2017 TRIAMCINOLONE ACET INJ NOS CPT-4: J3301 05/04/2017 THER/PROPH/DIAG INJ SC/IM CPT-4: 41085 05/04/2017 TRIAMCINOLONE ACET INJ NOS CPT-4: J3301 02/16/2017 ROCEPHIN, PER 250 MG CPT-4: J0696 02/16/2017 ROCEPHIN, PER 250 MG CPT-4: J0696 10/06/2016 URINALYSIS NONAUTO W/O SCOPE CPT-4: 88589 07/18/2016 TRIAMCINOLONE ACET INJ NOS CPT-4: J3301 01/20/2016 Vital Signs Date Vital 10/14/2018 Blood Pressure 1: 124/70 Code : 8480-6 BMI: 33.6 Code : 15669-5 Heart Rate 1 : 76 bpm Height: 6'2" SpO2: 99% Temperature: 36.3 (C) / 97.3 (F) Weight: 262 lbs 09/30/2018 Blood Pressure 1: 138/82 Code : 8480-6 BMI: 33.6 Code : 77222-0 Heart Rate 1 : 82 bpm Height: 6'2" SpO2: 98% Temperature: 36.3 (C) / 97.3 (F) Weight: 262 lbs 09/09/2018 Blood Pressure 1: 140/80 Code : 8480-6 BMI: 33.0 Code : 17027-2 Heart Rate 1 : 97 bpm Height: 6'2" SpO2: 93% Temperature: 36.8 (C) / 98.2 (F) Weight: 257 lbs 07/22/2018 Blood Pressure 1: 120/78 Code : 8480-6 BMI: 31.6 Code : 61321-5 Heart Rate 1 : 87 bpm Height: 6'2" SpO2: 98% Weight: 246 lbs 07/16/2018 Blood Pressure 1: 132/74 Code : 8480-6 BMI: 31.2 Code : 06293-2 Heart Rate 1 : 90 bpm Height: 6'2" SpO2: 96% Weight: 243 lbs 07/01/2018 Blood Pressure 1: 142/82 Code : 8480-6 BMI: 31.8 Code : 48175-5 Heart Rate 1 : 88 bpm Height: 6'2" SpO2: 98% Weight: 248 lbs 06/28/2018 Blood Pressure 1: 132/76 Code : 8480-6 BMI: 31.8 Code : 03424-4 Heart Rate 1 : 107 bpm Height: 6'2" SpO2: 98% Temperature: 37.9 (C) / 100.3 (F) Weight: 248 lbs 06/18/2018 Blood Pressure 1: 138/82 Code : 8480-6 BMI: 31.8 Code : 60673-8 Heart Rate 1 : 82 bpm Height: 6'2" SpO2: 97% Weight: 248 lbs 06/04/2018 Blood Pressure 1: 128/84 Code : 8480-6 BMI: 33.9 Code : 89610-9 Heart Rate 1 : 86 bpm Height: 6'2" SpO2: 95% Weight: 264 lbs 05/13/2018 Blood Pressure 1: 130/80 Code : 8480-6 BMI: 31.1 Code : 97907-2 Heart Rate 1 : 100 bpm Height: 6'2" SpO2: 94% Weight: 242 lbs 05/02/2018 Blood Pressure 1: 134/84 Code : 8480-6 BMI: 31.2 Code : 23782-0 Heart Rate 1 : 93 bpm Height: 6'2" SpO2: 98% Weight: 243 lbs 04/29/2018 Blood Pressure 1: 142/88 Code : 8480-6 BMI: 31.6 Code : 64961-6 Heart Rate 1 : 96 bpm Height: 6'2" SpO2: 96% Temperature: 36.7 (C) / 98.1 (F) Weight: 246 lbs 03/13/2018 Blood Pressure 1: 120/76 Code : 8480-6 BMI: 30.9 Code : 27525-1 Heart Rate 1 : 112 bpm Height: 6'2" SpO2: 97% Weight: 241 lbs 03/07/2018 Blood Pressure 1: 108/78 Code : 8480-6 BMI: 30.0 Code : 32853-2 Heart Rate 1 : 87 bpm Height: 6'2" SpO2: 98% Weight: 234 lbs 02/28/2018 Blood Pressure 1: 106/74 Code : 8480-6 BMI: 30.0 Code : 11553-9 Heart Rate 1 : 101 bpm Height: 6'2" SpO2: 98% Temperature: 36.4 (C) / 97.5 (F) Weight: 234 lbs 02/13/2018 Blood Pressure 1: 110/78 Code : 8480-6 BMI: 30.0 Code : 60645-8 Heart Rate 1 : 106 bpm Height: 6'2" SpO2: 98% Weight: 234 lbs 01/29/2018 Blood Pressure 1: 106/68 Code : 8480-6 BMI: 30.0 Code : 71285-2 Heart Rate 1 : 108 bpm Height: 6'2" SpO2: 98% Weight: 234 lbs 08/27/2017 Blood Pressure 1: 134/76 Code : 8480-6 Heart Rate 1: 98 bpm Height: SpO2: 97% Weight: 08/16/2017 Blood Pressure 1: 128/80 Code : 8480-6 BMI: 32.0 Code : 81439-7 Heart Rate 1 : 94 bpm Height: [...] Code : 8480-6 BMI: 31.8 Code : 79204-6 Heart Rate 1 : 102 bpm Height: [...] Code : 8480-6 BMI: 31.8 Code : 28206-3 Heart Rate 1 : 85 bpm Height: 6'2" SpO2: 96% Temperature: 36.6 (C) / 97.9 (F) Weight: 248 lbs 02/12/2017 Blood Pressure 1: 126/76 Code : 8480-6 BMI: 31.8 Code : 52895-5 Heart Rate 1 : 106 bpm Height: 6'2" SpO2: 91% Weight: 248 lbs 02/05/2017 Blood Pressure 1: 146/86 Code : 8480-6 BMI: 31.9 Code : 66103-5 Heart Rate 1 : 98 bpm Height: 6'2" SpO2: 87% Temperature: 36.7 (C) / 98.0 (F) Weight: 248 lbs 8 oz 01/29/2017 Blood Pressure 1: 132/84 Code : 8480-6 BMI: 31.8 Code : 71725-4 Heart Rate 1 : 83 bpm Height: 6'2" SpO2: 97% Weight: 248 lbs 10/13/2016 Blood Pressure 1: 128/72 Code : 8480-6 Heart Rate 1: 86 bpm SpO2: 94% 10/09/2016 Blood Pressure 1: 128/68 Code : 8480-6 Heart Rate 1: 136 bpm SpO2: 94% Temperature: 36.8 (C) / 98.2 (F) 10/06/2016 Blood Pressure 1: 140/80 Code : 8480-6 BMI: 32.1 Code : 83719-3 Heart Rate 1 : 94 bpm Height: 6'2" SpO2: 95% Weight: 250 lbs 07/18/2016 Blood Pressure 1: 128/86 Code : 8480-6 BMI: 32.1 Code : 41637-5 Heart Rate 1 : 89 bpm Height: 6'2" SpO2: 96% Weight: 250 lbs 06/22/2016 Blood Pressure 1: 118/70 Code : 8480-6 BMI: 32.1 Code : 30822-0 Heart Rate 1 : 70 bpm Height: 6'2" SpO2: 97% Weight: 250 lbs 05/23/2016 Blood Pressure 1: 128/80 Code : 8480-6 BMI: 32.1 Code : 51075-1 Heart Rate 1 : 76 bpm Height: 6'2" SpO2: 98% Weight: 250 lbs 05/15/2016 Blood Pressure 1: 110/90 Code : 8480-6 BMI: 31.3 Code : 18425-1 Heart Rate 1 : 111 bpm Height: 6'2" SpO2: 97% Temperature: 36.6 (C) / 97.8 (F) Weight: 244 lbs 01/20/2016 Blood Pressure 1: 128/76 Code : 8480-6 BMI: 33.0 Code : 79327-1 Heart Rate 1 : 103 bpm Height: [...] data Encounters Encounter Performer Location Codes Date ([id number]) 72729 EST. PATIENT, LEVEL III Diagnosis: Cough[ICD10: R05] Diagnosis: Acute bronchitis, unspecified[ICD10: J20.9] Melida Ha MD, [facility] CPT-4: 34353 10/14/2018 70414 EST. PATIENT, LEVEL III Diagnosis: Acute laryngopharyngitis[ICD10: J06.0] Diagnosis: Cough[ICD10: R05] [facility] CPT-4: 89920 09/30/2018 ([id number]) 59290 EST. PATIENT, LEVEL III Diagnosis: Acute recurrent maxillary sinusitis[ICD10: J01.01] Diagnosis: Cough[ICD10: R05] Diagnosis: Type 2 diabetes mellitus with hyperglycemia[ICD10: E11.65] [facility] CPT-4: 16191 09/09/2018 ([id number]) 09507 EST. PATIENT, LEVEL IV Diagnosis: Essential (primary) hypertension[ICD10: I10] Diagnosis: Mixed hyperlipidemia[ICD10: E78.2] Diagnosis: Bipolar disorder, current episode depressed, moderate[ICD10: F31.32] Diagnosis: Type 2 diabetes mellitus with other specified complication[ICD10: E11.69] Melida Ha MD, [facility] CPT-4: 65592 2017 ([id number]) 71235 EST. PATIENT, LEVEL III Diagnosis: Insomnia due to medical condition[ICD10: G47.01] Marcela Ha MD, [facility] CPT-4: 11432 07/16/2018 ([id number]) Miscellaneous no charge Diagnosis: Cough[ICD10: R05] Madeline Ha MD, [facility] CPT-4: 22592 07/01/2018 71257 EST. PATIENT, LEVEL III Diagnosis: Cough[ICD10: R05] Diagnosis: Acute laryngopharyngitis[ICD10: J06.0] Diagnosis: Other allergic rhinitis[ICD10: J30.89] Madeline Ha MD, [facility] CPT-4: 22701 06/28/2018 ([id number]) 48530 EST. PATIENT, LEVEL IV Diagnosis: Type 2 diabetes mellitus with hyperglycemia[ICD10: E11.65] Diagnosis: Essential (primary) hypertension[ICD10: I10] Melida Ha MD, [facility] CPT-4: 15991 06/18/2018 ([id number]) 55957 EST. PATIENT, LEVEL IV Diagnosis: Type 2 diabetes mellitus with hyperglycemia[ICD10: E11.65] Diagnosis: Essential (primary) hypertension[ICD10: I10] Diagnosis: Localized edema[ICD10: R60.0] Melida Ha MD, [facility] CPT- 4: 73280 06/04/2018 ([id number]) 69198 EST. PATIENT, LEVEL III Diagnosis: Type 2 diabetes mellitus with hyperglycemia[ICD10: E11.65] Diagnosis: Myalgia[ICD10: M79.1] Diagnosis: Pain in right hip[ICD10: M25.551] Diagnosis: Pain in left hip[ICD10: M25.552] Marcela Ha MD, [facility] CPT-4: 40689 05/13/2018 ([id number]) 47648 EST. PATIENT, LEVEL III Diagnosis: Myalgia[ICD10: M79.1] Diagnosis: Pain in right hip[ICD10: M25.551] Diagnosis: Pain in left hip[ICD10: M25.552] Marcela Ha MD, [facility] CPT-4: 12842 05/02/2018 ([id number]) 62296 EST. PATIENT, LEVEL IV Diagnosis: Essential (primary) hypertension[ICD10: I10] Diagnosis: Type 2 diabetes mellitus with hyperglycemia[ICD10: E11.65] Diagnosis: Major depressive disorder, single episode, moderate[ICD10: F32.1] Diagnosis: Myalgia[ICD10: M79.1] Marcela Ha MD, [facility] CPT-4: 99497 04/29/2018 ([id number]) 05819 EST. PATIENT, LEVEL IV Diagnosis: Type 2 diabetes mellitus with hyperglycemia[ICD10: E11.65] Diagnosis: Essential (primary) hypertension[ICD10: I10] Diagnosis: Major depressive disorder, single episode, moderate[ICD10: F32.1] Melida Ha MD, [facility] CPT-4: 52681 03/13/2018 ([id number]) 25720 EST. PATIENT, LEVEL III Diagnosis: Type 2 diabetes mellitus with hyperglycemia[ICD10: E11.65] Diagnosis: Bipolar disorder, current episode depressed, moderate[ICD10: F31.32] Diagnosis: Orthostatic hypotension[ICD10: I95.1] Marcela Ha MD, [facility] CPT-4: 09755 03/07/2018 ([id number]) 81010 EST. PATIENT, LEVEL IV Diagnosis: Type 2 diabetes mellitus with hyperglycemia[ICD10: E11.65] Diagnosis: Major depressive disorder, single episode, moderate[ICD10: F32.1] Diagnosis: Orthostatic hypotension[ICD10: I95.1] Diagnosis: Other fatigue[ICD10: R53.83] Marcela Ha MD, [facility] CPT-4: 49810 02/28/2018 53899 EST. PATIENT, LEVEL IV Diagnosis: Other fatigue[ICD10: R53.83] Diagnosis: Other malaise[ICD10: R53.81] Diagnosis: Gastro-esophageal reflux disease without esophagitis[ICD10: K21.9] Madeline Ha MD, [facility] CPT-4: 16773 02/13/2018 ([id number]) 52084 EST. PATIENT, LEVEL IV Diagnosis: Type 2 diabetes mellitus with foot ulcer[ICD10: E11.621] Diagnosis: Essential (primary) hypertension[ICD10: I10] Diagnosis: Gastro-esophageal reflux disease without esophagitis[ICD10: K21.9] Marcela Ha MD, [facility] CPT-4: 52571 01/29/2018 22292 EST. PATIENT, LEVEL III Diagnosis: Other malaise[ICD10: R53.81] Diagnosis: Other fatigue[ICD10: R53.83] Diagnosis: Pain in right shoulder[ICD10: M25.511] Diagnosis: Pain in left shoulder[ICD10: M25.512] Madeline Ha MD, [facility] CPT-4: 05488 08/27/2017 ([id number]) 13472 EST. PATIENT, LEVEL IV Diagnosis: Essential (primary) hypertension[ICD10: I10] Diagnosis: Type 2 diabetes mellitus with hyperglycemia[ICD10: E11.65] Diagnosis: VACCIN FOR INFLUENZA[ICD10: Z23] Melida Ha MD, [facility] CPT-4: 74474 08/16/2017 81646 EST. PATIENT, LEVEL III Diagnosis: Zoster without complications[ICD10: B02.9] Madeline Ha MD, [facility] CPT-4: 86215 07/26/2017 ([id number]) 20684 EST. PATIENT, LEVEL III Diagnosis: Cellulitis of right lower limb[ICD10: L03.115] Marcela Ha MD, [facility] CPT-4: 84192 07/03/2017 44992 EST. PATIENT, LEVEL II Diagnosis: Laceration without foreign body of left forearm, initial encounter[ ICD10: S51.812A] Marcela Ha MD, [facility] CPT-4: 35983 06/29/2017 ([id number]) 95488 EST. PATIENT, LEVEL III Diagnosis: Cellulitis of right lower limb[ICD10: L03.115] Diagnosis: Type 2 diabetes mellitus with foot ulcer[ICD10: E11.621] Marcela Ha MD , [facility] CPT-4: 85363 06/18/2017 ([id number]) 37113 EST. PATIENT, LEVEL IV Diagnosis: Cellulitis of right lower limb[ICD10: L03.115] Diagnosis: Acute laryngopharyngitis[ICD10: J06.0] Diagnosis: Gastro-esophageal reflux disease without esophagitis[ICD10: K21.9] Marcela Ha MD, [facility] CPT-4: 14557 06/07/2017 ([id number]) 39606 EST. PATIENT, LEVEL III Diagnosis: Type 2 diabetes mellitus with hyperglycemia[ICD10: E11.65] Diagnosis: Insect bite (nonvenomous) of abdominal wall, initial encounter[ICD10 : S30.861A] Marcela Ha MD, [facility] CPT-4: 47436 05/17/2017 ([id number]) 56875 EST. PATIENT, LEVEL III Diagnosis: Allergic contact dermatitis due to plants, except food[ICD10: L23.7] Melida Ha MD, [facility] CPT-4: 11147 05/04/2017 ([id number]) 92603 EST. PATIENT, LEVEL III Diagnosis: Essential (primary) hypertension[ICD10: I10] Marcela Ha MD, [facility] CPT-4: 61750 03/15/2017 ([id number]) 30562 EST. PATIENT, LEVEL III Diagnosis: Cough[ICD10: R05] Diagnosis: Essential (primary) hypertension[ICD10: I10] Marcela Ha MD, [facility] CPT-4: 61167 03/01/2017 ([id number]) 16372 EST. PATIENT, LEVEL III Diagnosis: Cough[ICD10: R05] Diagnosis: Nasal congestion[ICD10: R09.81] Diagnosis: Acute recurrent maxillary sinusitis[ICD10: J01.01] Marcela Ha MD, [facility] CPT-4: 36320 02/16/2017 ([id number]) 30520 EST. PATIENT, LEVEL III Diagnosis: Type 2 diabetes mellitus with hyperglycemia[ICD10: E11.65] Marcela Ha MD [facility] CPT-4: 07558 02/12/2017 ([id number]) 81113 EST. PATIENT, LEVEL IV Diagnosis: Type 2 diabetes mellitus with hyperglycemia[ICD10: E11.65] Diagnosis: Muscle weakness (generalized)[ICD10: M62.81] Diagnosis: Disorientation, unspecified[ICD10: R41.0] Marcela Ha MD [facility] CPT-4: 29075 02/05/2017 ([id number]) Patient admitted to the hospital from clinic (NO CHARGE) Diagnosis: Type 2 diabetes mellitus with hyperglycemia[ICD10: E11.65] Diagnosis: Disorientation, unspecified[ICD10: R41.0] Diagnosis: Muscle weakness (generalized)[ICD10: M62.81] Marcela Ha MD [facility] CPT-4: 23758R 01/29/2017 ([id number]) Miscellaneous no charge Diagnosis: Cellulitis of right lower limb[ICD10: L03.115] Marcela Ha MD [facility] CPT-4: 21224 10/13/2016 ([id number]) Miscellaneous no charge Diagnosis: Type 2 diabetes mellitus with foot ulcer[ICD10: E11.621] Diagnosis: Pain in right foot[ICD10: M79.671] Marcela Ha MD [facility] CPT-4: 50294 10/09/2016 78669 EST. PATIENT, LEVEL II Diagnosis: Cellulitis of right lower limb[ICD10: L03.115] Marcela Ha MD [facility] CPT-4: 60532 10/06/2016 ([id number]) 00584 EST. PATIENT, LEVEL IV Diagnosis: Low back pain[ICD10: M54.5] Diagnosis: Other deformities of toe(s) (acquired), left foot[ICD10: M20.5X2] Diagnosis: Type 2 diabetes mellitus with foot ulcer[ICD10: E11.621] Marcela Ha MD [facility] CPT-4: 39606 07/18/2016 ([id number]) 84736 EST. PATIENT, LEVEL III Diagnosis: Type 2 diabetes mellitus with hyperglycemia[ICD10: E11.65] Marcela Ha MD [facility] CPT-4: 02099 06/22/2016 ([id number]) 52394 EST. PATIENT, LEVEL IV Diagnosis: Type 2 diabetes mellitus with hyperglycemia[ICD10: E11.65] Diagnosis: Mixed hyperlipidemia[ICD10: E78.2] Diagnosis: Other hemoglobinopathies[ICD10: D58.2] Marcela Ha MD, [facility] CPT-4: 23588 05/23/2016 ([id number]) 58139 EST. PATIENT, LEVEL IV Diagnosis: Type 2 diabetes mellitus with other specified complication[ICD10: E11.69] Diagnosis: Dehydration[ICD10: E86.0] Marcela Ha MD, [facility] CPT-4: 76903 05/15/2016 ([id number]) OFFICE VISIT, NEW - LEVEL 3 Diagnosis: Allergic contact dermatitis due to plants, except food[ICD10: L23.7] Madeline Ha MD, [facility] CPT-4: 33572 01/20/2016 Plan of Care Planned Activity Notes [...] Plan: CHEST X-RAY 2VW FRONTAL&LATL LOINC : 18911-4 Pending 10/14/2018 Visit Plan: URI - Pt [...] spray. 09/30/2018 [facility]ment[phone] ([facility] min) Moderate 09/30/2018 Patient Education: [...] Hgb A1C 09/09/2018 Appointment: Marcela Oshea WPtel: [facility]9 [phone] (15 min) Moderate 09/09/2018 Patient Education: Patient Medication Summary Completed 09/09/2018 Patient Education: Patient Medication Summary Completed 09/06/2018 Patient Education: Cholesterol Management Completed 09/06/2018 Care Plan: Comp Metabolic Pending 09/06/2018 Care Plan: Cbc With Differential Pending 09/06/2018 Care Plan: %Hba1C LOINC : 72003-1 Pending 09/06/2018 Care Plan: Tsh Pending 09/06/2018 Care Plan: Lipid Pending 09/06/2018 Appointment: Marcela Oshea WPtel: [facility]5 [phone] (15 min) Moderate 08/26/2018 Appointment: Marcela Oshea WPtel: [facility]5 [phone] (15 min) Moderate 08/23/2018 Visit Plan: [...] clinic. 07/22/2018 [facility]ment[phone] [facility] ([facility] min) Moderate 07/22/2018 Patient Education: [...] insomnia. 07/16/2018 App[phone] [phone] [place] (30 min) Complex 07/16/2018 Patient Education: Patient Medication Summary Completed 07/16/2018 Visit Plan: cough - improved - notify clinic if symptoms do not completely resolve, or with any questions or concerns. 07/01/2018 Appointment: [phone] [facility] (15 min) Moderate 07/01/2018 Patient Education: [...] allergy spray. 06/28/2018 Appointment: Madeline Kennedy WPtel: [facility] (15 min) Moderate 06/28/2018 Patient Education: Patient Medication Summary Completed 06/28/2018 Patient Education: Patient Medication Summary Completed 06/21/2018 Care Plan: Annabel RICKS PA Pending 06/21/2018 Visit Plan: Diabetes Mellitus - [...] at home. 06/18/2018 Appointment: Melida Ha WPtel: [facility] [address] (15 min) Moderate 06/18/2018 Patient Education: [...] allow for greater blood glucose control. Joint lmps-jwtfjzue-xzslahb- symptoms have improved -stop meloxicam due to upset stomach-call if symptoms return 05/13/2018 Appointment: Marcela Oshea WPtel: [facility]5 [phone] (30 min) Complex 05/13/2018 Patient Education: Patient Medication Summary Completed 05/13/2018 Visit Plan: Bilateral hip mprz-xdgisptt-ufbowtl IM injection administered today for c/o continued myalgia/arthralgia. Patient to start taking Meloxicam 15mg PO daily. Advised to return to clinic if symptoms do not improve. 05/02/2018 Appointment: Marcela Oshea WPtel: [phone] [phone] [place] (30 min) Complex 05/02/2018 Patient [...] readings at home. Diabetes Mellitus -check labs Vnbmotdb-eagahvx-taac bite-rx for doxycycline-follow up in 2 weeks 04/29/2018 Appointment: Marcela Oshea WPtel: [phone] [phone] [place] (15 min) Moderate 04/29/2018 Patient Education: Patient Medication Summary Completed 04/29/2018 Appointment: Melida Ha WPtel: [phone] [facility] [place] (15 min) Moderate 04/15/2018 Appointment: Marcela Oshea WPtel: [phone] [phone] [place] (30 min) Complex 03/21/2018 Visit [...] on cymbalta 03/13/2018 Appointment: Melida Ha WPtel: [phone] [facility] [place] (30 min) Complex 03/13/2018 Patient Education: Patient Medication Summary Completed 03/13/2018 Visit Plan: DM-continue same medications-monitor blood sugars routinely as directed -rx for new glucometer and test strips provided Bipolar-currently depressed-patient start on vraylar-follow up in 2 weeks, sooner if needed. Patient and verbalied understanding of plan. Hypotension- stay off losartan 03/07/2018 Appointment: Marcela Oshea WPtel: [phone] [phone] (30 min) Complex 03/07/2018 Patient Education: [...] patient. 02/28/2018 Appointment: Marcela Oshea WPtel: [phone] [phone] (30 min) Complex 02/28/2018 Patient Education: [...] not improving. 02/13/2018 Appointment: Madeline Kennedy WPtel: [facility] (15 min) Moderate 02/13/2018 Patient Education: Patient Medication Summary Completed 02/13/2018 Referral: Sun Glynn Patient informed. Referral info faxed. Completed Visit Plan: DM-weight loss-not checking blood sugars- patient sent for labs today HTN-low wrwuk-nrzxkjr-sljwf labs Callus of foot and fissue of heel-refer to Dr Glynn for evaluation Esophageal Reflux - the patient has been counseled against excessive intake of caffeine, spicy foods, peppermint , and cinnamon - all of which can exacerbate esophageal reflux. The patient is to take medications as prescribed and call the office if the symptoms are not improving. 01/29/2018 Appointment: Marcela Oshea WPtel: [phone] [place] (30 min) Complex 01/29/2018 Patient Education: Patient Medication Summary Completed 01/29/2018 Care Plan: Comp Metabolic Cancelled 01/29/2018 Care Plan: Cbc With Differential Cancelled 01/29/2018 Care Plan: %Hba1C LOINC : 65952-4 Cancelled 01/29/2018 Care Plan: Referral Order SNOMED-CT : [id number] Cancelled 01/29/2018 Visit Plan: Fatigue, malaise, joint [...] or concerns. 08/27/2017 Appointment: Madeline Kennedy WPtel: [facility] (15 min) Moderate 08/27/2017 Patient Education: [...] Obesity Completed 08/16/2017 Appointment: Madeline Kennedy WPtel: [facility] (30 min) Complex 08/07/2017 Visit Plan: [...] contagious. 07/26/2017 Appointment: Madeline Kennedy WPtel: [phone] [facility] [place] (15 min) Moderate 07/26/2017 Patient Education: Patient Medication Summary Completed 07/26/2017 Visit Plan: Cellulitis right foot-cultured today in the office-home health to reapply wound vac--appt with wound care on to evaluate for debridement- 07/03/2017 Appointment: Marcela Oshea WPtel: [phone] [phone] [place] (30 min) Complex 07/03/2017 Patient Education: Patient Medication Summary Completed 07/03/2017 Visit Plan: Abrasion left arm - Pt was instructed to keep the wound clean, wash with antibacterial soap, use triple antibiotic ointment, call if redness, pustular drainage, or any other acute concerns. 06/29/2017 Appointment: Marcela Oshea WPtel: [facility]3 [phone] (15 min) Moderate 06/29/2017 Patient Education: [...] of plan. 06/18/2017 Appointment: Marcela Oshea WPtel: [facility]2 [phone] (15 min) Moderate 06/18/2017 Patient Education: [...] diet-start prilosec 06/07/2017 Appointment: Marcela Oshea WPtel: [facility]2 [phone] (10 min) Simple 06/07/2017 Patient Education: [...] doxycycline 05/17/2017 Appointment: Marcela Oshea WPtel: [phone] (30 min) Complex 05/17/2017 Patient Education: Patient [...] if you want anai edge called into [facility]. 05/04/2017 Appointment: Marcela Oshea WPtel: [facility] (30 min) Complex 05/04/2017 Patient Education: [...] home. Cough-resolved 03/15/2017 Appointment: Marcela Oshea WPtel: [phone] (15 min) Moderate 03/15/2017 Patient Education: Patient Medication Summary Completed 03/15/2017 Appointment: Marcela Oshea WPtel: [phone] [phone] (30 min) Complex 03/12/2017 Visit Plan: [...] as discussed 02/16/2017 Appointment: Marcela Oshea WPtel: [facility]9 [phone] (15 min) Moderate 02/16/2017 Patient Education: [...] less controlled. 02/12/2017 Appointment: Marcela Oshea WPtel: [facility]2 [phone] (30 min) Complex 02/12/2017 Patient Education: Patient Medication Summary Completed 02/12/2017 Appointment: Marcela Oshea WPtel: [facility]5 [phone] (30 min) Complex 02/06/2017 Visit Plan: [...] will consider 02/05/2017 Appointment: Marcela Oshea WPtel: [facility]5 [phone] (30 min) Complex 02/05/2017 Patient Education: Patient Medication Summary Completed 02/05/2017 Appointment: Marcela Oshea WPtel: [address] [place], [place] [phone] [place] (30 min) Complex 01/30/2017 Visit Plan: Acute confusion-uncontrolled diabetes- chronically noncompliant with treatment and stopped his insulin several months ago-r/o stroke vs DKA-Dr Ha in to evaluate patient-plan to admit for further work up and treatment-patient's called and she transported him to the hospital 01/29/2017 Appointment: Marcela Oshea WPtel: [facility]9 [phone] (30 min) Complex 01/29/2017 Patient Education: Patient Medication Summary Completed 01/29/2017 Patient Education: Obesity Completed 01/29/2017 Visit Plan: Right foot pain-MRI shows foreign body-appt with Dr Grewal for evaluation on Sunday. 10/13/2016 Appointment: Marcela Oshea WPtel: [phone] [place] (15 min) Moderate 10/13/2016 Patient Education: Patient Medication Summary Completed 10/13/2016 Appointment: Marcela Oshea WPtel: [facility]5 [phone] [place] (30 min) Complex 10/12/2016 Visit Plan: Right foot ymmw-zisitdep-nqdyi washer dropped on foot-xray negative but pain continues to increase-recommend MRI of foot for further evaluation-refer to wound care for lesions on right foot, patient has diabetes and history of osteomyelitis-culture obtained today-continue oral abx- follow up in the office on , sooner if needed 10/09/2016 Visit Plan: Right foot shza-iddgsxzf-sdbjk washer dropped on foot-xray negative but pain continues to increase-recommend MRI of foot for further evaluation-refer to wound care for lesions on right foot, patient has diabetes and history of osteomyelitis-culture obtained today-continue oral abx- follow up in the office on , sooner if needed 10/09/2016 Visit Plan: Right foot mijg-qiuijtst-qjina washer dropped on foot-xray negative but pain continues to increase-recommend MRI of foot for further evaluation-refer to wound care for lesions on right foot, patient has diabetes and history of osteomyelitis-culture obtained today-continue oral abx- follow up in the office on , sooner if needed 10/09/2016 Appointment: Marcela Oshea WPtel: [facility]2 [id number] (30 min) Complex 10/09/2016 Patient Education: Patient Medication Summary Completed 10/09/2016 Visit Plan: Cellulitis - continue with oral antibiotics as previously directed, return to clinic as previously directed, call for acute change in symptoms, worsening redness, warmth, discharge. 10/06/2016 Appointment: Marcela Oshea WPtel: [facility]2 [phone] (10 min) Simple 10/06/2016 Patient Education: Patient Medication Summary Completed 10/06/2016 Appointment: Marcela Oshea WPtel: [facility]4 [phone] (30 min) Complex 08/24/2016 Referral: Sun Glynn Referral Completed 07/21/2016 Visit Plan: Low back pain- history of spinal fusion- patient for xray lumbar spine-RX sent to [facility] and instructed on use-topical voltaren samples provided and instructed on use. Ok to use tylenol as needed as well. The patient is to call the office if the pain is worsening or does not improve. Pressure ulcer left 4th toe-refer to Dr Glynn for evaluation 07/18/2016 Appointment: Marcela Oshea WPtel: [facility]4 [phone] (30 min) Complex 07/18/2016 Patient Education: Patient Medication Summary Completed 07/18/2016 Patient Education: Obesity Completed 07/18/2016 Care Plan: Referral Order SNOMED-CT : [id number] Cancelled 07/18/2016 Visit Plan: Diabetes Mellitus - [...] control. 06/22/2016 Appointment: Marcela Oshea WPtel: [id number] [phone] (30 min) Complex 06/22/2016 Patient Education: [...] today 05/23/2016 [phone] ([facility] min[facility] Complex 05/23/2016 Patient Education: [...] of plan. 05/15/2016 Appointment: Marcel[facility] Oshea [facility]Ptel[phone] (15 min) Moderate 05/15/2016 Patient Education: [...] Dr Grewal for evaluation on Sunday. . Diabetes Mellitus - controlled - per [...] spray in the nasal steroid allergy spray. sputum culture chest xray levaquin 500mg daily [...] wound care on to evaluate for debridement- breathing treatments 3 times a day x [...] if you want blue goo called into [facility]. 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 Low back pain- history of spinal fusion-patient for xray lumbar spine-RX sent to [facility] and instructed on use-topical voltaren samples [...] for fracture from injury . 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 Right foot wkhw-fbysafes-jnjkm washer dropped on foot-xray negative but pain continues to increase-recommend MRI of foot for further evaluation-refer to wound care for lesions on right foot, patient has diabetes and history of osteomyelitis-culture obtained today-continue oral abx-follow up in the office on , sooner if needed . Bilateral hip trhg-iceqxamc-vaffzjs IM injection administered today for c/o continued myalgia/arthralgia. Patient to start taking Meloxicam 15mg PO daily. Advised to return to clinic if symptoms do not improve. . DM-weight loss-not checking blood sugars-patient sent for labs today HTN-low xdadw-zabbbqb-jsrhg labs Callus of foot and fissue of [...] readings are starting to become less controlled. Tygjyxils-clapjbns-bqunzihn to monitor Generalized weakness-refer for PT-patient refuses [...] allow for greater blood glucose control. Joint mrsq-emdzlgxv-xoasjjs-symptoms have improved -stop meloxicam due to upset [...] 5pm. Daytime napping worsens night time insomnia. doxycycline 100mg twice daily follow up in 2 weeks, sooner if needed . Hypertension - well controlled - continue with current medications, continue with no added salt diet. Pt has been encouraged to exercise daily. The pt has been advised to call the office if there are any acute concerns about change in blood pressure readings at home. Diabetes Mellitus -check labs Kwpqutjr-dolfuaa-ebqn bite-rx for doxycycline-follow up in 2 weeks [...] do not show improvement. DM-check Hgb A1C . Diabetes Mellitus - I have recommended [...] to allow for greater blood glucose control. REPEAT CBC Toujeo 10 units daily . [...] blood glucose control. Elevated Hgb-check CBC today . Poison Jana - pt is to use topical treatments as directed. Pt is cleanse clothing in hot water with soap, and call if symptoms do not improve or if they worsen. INCREASE FLUIDS-RECOMMEND G2 GATORADE-CHECK LABS TODAY IF [...]
--- OUTSIDE RECORDS SUMMARY | 2018-10-20 10:53 | XMS REPORT | CCD ---
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 Role Phone PP Unavailable CCM Unavailable Summary Purpose Interface Exchange Insurance Providers Payer name Policy type / Coverage type Covered democrat ID Effective Begin Date Effective End Date Blue Cross Blue Shield [facility] Blue Cross/Blue Shield [id number] Unknown Family history Father Diagnosis Age At Onset Hyperlipidemia Unknown Heart Attack Unknown Mother Diagnosis Age At Onset Hypertension Unknown Social History Social History Element Codes Description Effective Dates Marital status Unknown Mignon 01/20/2016 Number of children Unknown 4 01/20/2016 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/[address]: 140034450 Never smoker 01/20/[address]: 575591080 Never drinks alcohol 01/20/2016 Allergies, Adverse Reactions, [...] mL (0.083 %) solution for nebulization RxNorm: 788073 3 Milliliter(s) INH UD 10/14/2018 No Stop Date Active Levaquin 500 mg tablet RxNorm: 344404 1 Tablet(s) PO daily 08/201810/20/2018 Active Tessalon Perles 100 mg capsule RxNorm: 042416 1-2 Capsule(s) PO TID PRN 10/14/2018 No Stop Date Active Coreg 6.25 mg tablet RxNorm: 520291 TAKE ONE TABLET BY MOUTH TWICE A DAY 09/30/2018 03/28/2019 Active albuterol sulfate 2.5 mg/3 mL (0.083 %) solution for nebulization RxNorm: 561075 3 Milliliter(s) INH UD 09/30/201807/2018 Inactive Kenalog 40 mg/mL suspension for injection RxNorm: 8589047 1.5 Milliliter(s) Inj 09/30/2018 09/30/2018 Inactive Keflex 500 mg capsule RxNorm: 903584 1 Capsule(s) PO TID 201710/03/2018 Inactive prednisone 20 mg tablet RxNorm: 629607 2 Tablet(s) PO daily 09/29/2018 Inactive Kenalog 40 mg/mL suspension for injection RxNorm: 1255825 Milliliter(s) Inj 09/11/2018 09/11/2018 Inactive Zyrtec 10 mg tablet RxNorm: 0843662 1 Tablet(s) PO daily 09/0910/08/2018 Inactive Keflex 500 mg capsule RxNorm: 267513 1 Capsule(s) PO TID 201709/15/2018 Inactive Tresiba FlexTouch U-200 insulin 200 unit/mL (3 mL) subcutaneous pen RxNorm: 3896510 50 Unit(s) SQ daily 08/30/2018 08/29/2018 Inactive please give him 30 day supply Tresiba FlexTouch U-200 insulin 200 unit/mL (3 mL) subcutaneous pen RxNorm: 4516017 50 Unit(s) SQ daily 08/30/2018 09/28/2018 Inactive please give him 30 day supply Novolog Flexpen U-100 Insulin aspart 100 unit/mL subcutaneous RxNorm: 9475815 8 Unit(s) SQ AC 08/13/2018 No Stop Date Active Novolog Flexpen U-100 Insulin aspart 100 unit/mL subcutaneous RxNorm: 3804180 8 Unit(s) SQ AC 07/22/20182017 Inactive this is an update on his medication Novolog Flexpen U-100 Insulin aspart 100 unit/mL subcutaneous RxNorm: 4677993 12 Unit(s) SQ AC 07/05/20182017 Inactive this is an update on his medication Ronaldujose SigalaoStar U-300 Insulin 300 unit/mL (1.5 mL) subcutaneous pen RxNorm: 7108042 INJECT 50 UNITS UNDER THE SKIN DAILY 07/01/2018 08/29/2018 Inactive Mucinex 600 mg tablet, extended release RxNorm: 067240 1 Tablet(s) PO BID 06/28/2018 07/04/2018 Inactive Zofran 4 mg tablet RxNorm: 931178 1 Tablet(s) PO TID as needed nausea 06/28/2018 07/02/2018 Inactive Kenalog 40 mg/mL suspension for injection RxNorm: 8485210 Milliliter(s) Inj 06/28/2018 06/28/2018 Inactive Flonase Allergy Relief 50 mcg/actuation nasal spray, suspension RxNorm: 4766323 1 [place] NASAL BID 06/28/20182017 Inactive Lyrica 50 mg capsule RxNorm: 459413 Capsule(s) PO daily 201707/07/2018 Inactive Novolog Flexpen U-100 Insulin aspart 100 unit/mL subcutaneous RxNorm: 3302704 10 Unit(s) SQ AC 06/18/20182017 Inactive this is an update on his medication Lasix 20 mg tablet RxNorm: 466300 1 Tablet(s) PO BIW 201707/02/2018 Inactive atorvastatin 80 mg tablet RxNorm: 371127 1 Tablet(s) PO QHS 04/201812/06/2018 Active clonazepam 1 mg tablet RxNorm: 193205 2 Tablet(s) PO HS 201706/04/2019 Active clonazepam 1 mg tablet RxNorm: 759508 2 Tablet(s) PO HS as needed 06/10/2018 06/09/2018 Inactive Lyrica 50 mg capsule RxNorm: 521783 Capsule(s) PO daily 201707/08/2018 Inactive Lasix 20 mg tablet RxNorm: 247250 1 Tablet(s) PO TIW 201706/11/2018 Inactive Toujeo SoloStar U-300 Insulin 300 unit/mL (1.5 mL) subcutaneous pen RxNorm: 2634698 50 Unit(s) SQ daily 05/07/2018 06/30/2018 Inactive meloxicam 15 mg tablet RxNorm: 513228 15 Milligram(s) PO daily 05/02/2018 05/12/2018 Inactive ketorolac 30 mg/mL injection solution RxNorm: 207560 2 Milliliter(s) Inj 05/02/2018 05/02/2018 Inactive Toujeo SoloStar U-300 Insulin 300 unit/mL (1.5 mL) subcutaneous pen RxNorm: 0102874 45 Unit(s) daily 04/29/2018 Inactive clonazepam 1 mg tablet RxNorm: 603428 1 Tablet(s) PO Q8 as needed 04/29/2018 06/09/2018 Inactive doxycycline hyclate 100 mg tablet RxNorm: 6970126 1 Tablet(s) PO BID 04/29/2018 05/12/2018 Inactive Cymbalta 30 mg capsule,delayed release RxNorm: 481037 1 Capsule(s) PO QAM 03/13/2018 10/08/2018 Inactive Lexapro 10 mg tablet RxNorm: 660153 1 Tablet(s) PO QPM 201703/03/2018 Inactive Toujeo SoloStar U-300 Insulin 300 unit/mL (1.5 mL) subcutaneous pen RxNorm: 8799272 20 Unit(s) daily 02/28/2018 Inactive Protonix 40 mg tablet,delayed release RxNorm: 175284 1 Tablet(s) PO daily 01/29/2018 06/09/2018 Inactive clonazepam 1 mg tablet RxNorm: 065659 1 Tablet(s) PO Q8 as needed 12/12/2017 03/10/2018 Inactive Tamiflu 75 mg capsule RxNorm: 172440 1 Capsule(s) PO BID 201712/03/2017 Inactive doxycycline hyclate 100 mg capsule RxNorm: 8690037 1 Capsule(s) PO BID 09/07/2017 09/20/2017 Inactive doxycycline hyclate 100 mg capsule RxNorm: 3082717 1 Capsule(s) PO BID 08/27/2017 09/06/2017 Inactive prednisone 20 mg tablet RxNorm: 760139 2 Tablet(s) PO daily 08/31/2017 Inactive clopidogrel 75 mg tablet RxNorm: 426757 1 Tablet(s) PO daily 06/09/2018 Inactive atorvastatin 40 mg tablet RxNorm: 247074 1 Tablet(s) PO QHS 02/27/2018 Inactive losartan 25 mg tablet RxNorm: 173027 TAKE ONE TABLET BY MOUTH DAILY 08/22/2017 06/09/2018 Inactive Toujeo SoloStar 300 unit/mL (1.5 mL) subcutaneous insulin pen RxNorm: 4620689 45 Unit(s) daily 08/17/2017 08/20/2017 Inactive mupirocin 2 % topical ointment RxNorm: 832758 1 Application TOP TID to the lesions on chest 08/16/2017 08/25/2017 Inactive Toujeo SoloStar 300 unit/mL (1.5 mL) subcutaneous insulin pen RxNorm: 5508594 40 Unit(s) daily 08/16/2017 08/16/2017 Inactive valacyclovir 1 gram tablet RxNorm: 735012 1 Tablet(s) PO TID 08/01/2017 Inactive clonazepam 1 mg tablet RxNorm: 090490 1 Tablet(s) PO Q8 as needed 07/03/2017 09/30/2017 Inactive Levaquin 500 mg tablet RxNorm: 711862 1 Tablet(s) PO daily 06/25/2017 Inactive Levaquin 500 mg tablet RxNorm: 368984 1 Tablet(s) PO daily 06/21/2017 Inactive losartan 25 mg tablet RxNorm: 950252 1 Tablet(s) PO daily 201608/16/2017 Inactive nystatin 100,000 unit/mL oral suspension RxNorm: 787228 5 Milliliter(s) PO QID Swish et swallow 06/18/2017 06/17/2017 Inactive nystatin 100,000 unit/mL oral suspension RxNorm: 594497 5 Milliliter(s) PO QID Swish et swallow 06/18/2017 06/27/2017 Inactive Cipro 500 mg tablet RxNorm: 039090 1 Tablet(s) PO BID 201606/18/2017 Inactive Cipro 500 mg tablet RxNorm: 409306 1 Tablet(s) PO BID 201606/11/2017 Inactive Toujeo SoloStar 300 unit/mL (1.5 mL) subcutaneous insulin pen RxNorm: 9742205 INJECT 10 UNITS UNDER THE SKIN DAILY 06/12/2017 08/15/2017 Inactive Keflex 500 mg capsule RxNorm: 640655 1 Capsule(s) PO TID 201606/13/2017 Inactive doxycycline hyclate 100 mg capsule RxNorm: 2493570 1 Capsule(s) PO BID 05/17/2017 05/21/2017 Inactive doxycycline hyclate 100 mg capsule RxNorm: 9812456 1 Capsule(s) PO BID 05/11/2017 05/16/2017 Inactive losartan 25 mg tablet RxNorm: 269249 1 Tablet(s) PO daily 201606/17/2017 Inactive atorvastatin 40 mg tablet RxNorm: 780661 1 Tablet(s) PO daily 03/01/2017 08/23/2017 Inactive clopidogrel 75 mg tablet RxNorm: 357435 1 Tablet(s) PO daily 08/23/2017 Inactive Flonase Allergy Relief 50 mcg/actuation nasal spray, suspension RxNorm: 6335478 2 [place] NASAL daily 02/16/20172016 Inactive Augmentin 875 mg-125 mg tablet RxNorm: 425324 1 Tablet(s) PO BID 02/16/2017 02/22/2017 Inactive GET PROBIOTIC TO TAKE WHILE ON ABX Tamiflu 75 mg capsule RxNorm: 186431 1 Capsule(s) PO BID 201602/20/2017 Inactive ceftriaxone 500 mg solution for injection RxNorm: 5312859 1 Milliliter(s) Inj 02/16/2017 02/16/2017 Inactive Kenalog 40 mg/mL suspension for injection RxNorm: 9156111 1 Milliliter(s) Inj 02/16/2017 02/16/2017 Inactive Toujeo SoloStar 300 unit/mL (1.5 mL) subcutaneous insulin pen RxNorm: 9587907 25 Unit(s) SQ QAM 02/12/2017 06/10/2017 Inactive Toujeo SoloStar 300 unit/mL (1.5 mL) subcutaneous insulin pen RxNorm: 1873497 10 Unit(s) SQ QAM 02/05/2017 02/11/2017 Inactive lisinopril 10 mg tablet RxNorm: 588894 1 Tablet(s) PO daily 02/28/2017 Inactive atorvastatin 40 mg tablet RxNorm: 170630 1 Tablet(s) PO daily 02/01/2017 02/28/2017 Inactive doxycycline hyclate 100 mg capsule RxNorm: 9364783 1 Capsule(s) PO BID 02/01/2017 02/10/2017 Inactive clonazepam 1 mg tablet RxNorm: 883754 1 Tablet(s) PO Q8 as needed 10/09/2016 01/05/2017 Inactive ceftriaxone 1 gram solution for injection RxNorm: 0323046 Inj 10/06/2016 10/06/2016 Inactive cyclobenzaprine 10 mg tablet RxNorm: 426941 1/2-1 Tablet(s) PO TID PRN 07/18/2016 01/28/2017 Inactive clonazepam 1 mg tablet RxNorm: 935403 1 Tablet(s) PO Q8 as needed 05/31/2016 05/29/2016 Inactive clonazepam 1 mg tablet RxNorm: 270013 1 Tablet(s) PO Q8 as needed 05/31/2016 08/28/2016 Inactive Toujeo SoloStar 300 unit/mL (1.5 mL) subcutaneous insulin pen RxNorm: 3941347 10 Unit(s) SQ daily 05/23/2016 01/28/2017 Inactive Crestor 10 mg tablet RxNorm: 710350 1 Tablet(s) PO QHS 201501/28/2017 Inactive Crestor 10 mg tablet RxNorm: 245317 1 Tablet(s) PO QHS 201505/18/2016 Inactive clonazepam 1 mg tablet RxNorm: 070628 1 Tablet(s) PO Q8 as needed 04/25/2016 05/30/2016 Inactive prednisone 20 mg tablet RxNorm: 907820 3 Tablet(s) PO daily 06/201602/10/2016 Inactive prednisone 20 mg tablet RxNorm: 220099 3 Tablet(s) PO daily 06/201605/14/2016 Inactive Kenalog 40 mg/mL suspension for injection RxNorm: 9900456 Milliliter(s) Inj 01/20/2016 01/20/2016 Inactive aspirin 81 mg tablet,delayed release RxNorm: 311541 1 Tablet(s) PO daily No Start Date Active Brilinta 90 mg tablet RxNorm: 7746192 1 Tablet(s) PO BID No Start Date Active valsartan 80 mg tablet RxNorm: 884735 1 Tablet(s) PO daily No Start Date Active acetaminophen 500 mg tablet RxNorm: 421597 1-2 Tablet(s) PO as needed No Start Date Active clopidogrel 75 mg tablet RxNorm: 067188 1 Tablet(s) PO daily No Start Date 02/28/2017 Inactive Novolog Flexpen U-100 Insulin aspart 100 unit/mL subcutaneous RxNorm: 4871708 5 units with breakfast lunch and 10 supper Unit(s) SQ No Start Date 06/17/2018 Inactive clonazepam 1 mg tablet RxNorm: 792918 1 Tablet(s) PO QHS No Start Date 04/24/2016 Inactive Coreg 6.25 mg tablet RxNorm: 575686 1 Tablet(s) PO BID No Start Date 09/29/2018 Inactive acyclovir 400 mg tablet RxNorm: 451986 2 Tablet(s) PO 5x daily No Start Date 02/28/2017 Inactive Lyrica 50 mg capsule RxNorm: 775533 Capsule(s) PO BID No Start Date 06/09/2018 Inactive Vraylar 3 mg capsule RxNorm: 3039116 1 Capsule(s) PO daily No Start Date 03/12/2018 Inactive Medication Administered Medication Codes Instructions Start Date Status Kenalog 40 mg/mL suspension for injection RxNorm: 9394652 1.5Milliliter 09/30/2018 No longer Active Kenalog 40 mg/mL suspension for injection RxNorm: 2772685 Milliliter 09/11/2018 No longer Active Kenalog 40 mg/mL suspension for injection RxNorm: 2745406 Milliliter 06/28/2018 No longer Active ketorolac 30 mg/mL injection solution RxNorm: 408204 2Milliliter 05/02/2018 No longer Active ceftriaxone 500 mg solution for injection RxNorm: 6042053 1Milliliter 02/16/2017 No longer Active Kenalog 40 mg/mL suspension for injection RxNorm: 3270819 1Milliliter 02/16/2017 No longer Active ceftriaxone 1 gram solution for injection RxNorm: 7500410 10/06/2016 No longer Active Kenalog 40 mg/mL suspension for injection RxNorm: 7791017 Milliliter 01/20/2016 No longer Active Immunizations Vaccine [...] GRP Triglyceride TNP:Duplicate Order 2017 LIPID GRP 7077954 HDL CHOLESTEROL TNP:Duplicate Order 2017 LIPID GRP Chol/HDL Ratio TNP:Duplicate Order 2017 LIPID GRP LDL Cholesterol TNP:Duplicate Order 2017 A1C HPLC 4560849 Hgb A1c 59534-9 TNP:Duplicate Order 2017 C Diff An [id number] GD TNP:Lab Request 06/22/2018 C Diff An [id number] Toxin A/B TNP:Lab Request 06/22/2018 C Diff An [id number] C Diff Analyzer TNP:Lab Request 2017 C Diff An [id number] IC OK? TNP:Lab Request 06/22/2018 CBC 8018669 WBC 6.4 10e9/L 05/02/2018 CBC 9013965 RBC 5.60 10e12/L 05/02/2018 CBC 2294596 HEMOGLOBIN 17.0 g/dL 05/02/2018 CBC 4556046 HEMATOCRIT 48.0 % 05/02/2018 CBC 8650503 MCV 85.7 fL 05/02/2018 CBC 2314834 MCH 30.4 pg 05/02/2018 CBC 3166125 MCHC 35.4 g/dL 05/02/2018 CBC 3838672 PLATELET COUNT 166 10e9/L 05/02/2018 CBC 9051653 Mean Plt Volume 11.6 fL 05/02/2018 CBC 8926435 Neut Auto 48.6 % 05/02/2018 CBC 9215241 Lymph Auto 41.7 % 05/02/2018 CBC 7721753 Bacon Auto 8.1 % 05/02/2018 CBC 4945989 RDW 13.1 % 05/02/2018 CBC 3533551 Eos Auto 1.1 % 05/02/2018 CBC 2719047 Baso Auto 0.5 % 05/02/2018 CBC 7749146 Neutrophil Abs 3.11 10e9/L 05/02/2018 CBC 0213933 Lymphocyte Abs 2.67 10e9/L 05/02/2018 CBC 0723888 Monocyte Abs 0.52 10e9/L 05/02/2018 CBC 1405379 Eosinophil Abs 0.07 10e9/L 05/02/2018 CBC 5920897 RDW-SD 40.0 fL 05/02/2018 CBC 1176832 Basophil Abs 0.03 10e9/L 05/02/2018 CHEM 14 5313722 AST 17 U/L 05/02/2018 CHEM 14 4034702 ALT 17 U/L 05/02/2018 CHEM 14 5350870 BUN 17 mg/dL 05/02/2018 CHEM 14 2909090 ALBUMIN 4.0 g/dL 05/02/2018 CHEM 14 2799030 CHLORIDE 97 mmol/L 05/02/2018 CHEM 14 2820086 Bili Total 0.9 mg/dL 05/02/2018 CHEM 14 2892288 ALK PHOS 67 U/L 05/02/2018 CHEM 14 3229742 SODIUM 135 mmol/L 05/02/2018 CHEM 14 4501198 CREATININE 1.18 mg/dL 05/02/2018 CHEM 14 8936331 CALCIUM 9.4 mg/dL 05/02/2018 CHEM 14 1883669 POTASSIUM 4.4 mmol/L 05/02/2018 CHEM 14 0811660 TOTAL PROTEIN 6.9 g/dL 05/02/2018 CHEM 14 6544349 GLUCOSE 316 mg/dL 05/02/2018 CHEM 14 0863851 Bicarbonate 29 mmol/L 05/02/2018 CHEM 14 1383820 AGAP 9 mmol/L 05/02/2018 MEAN GLUC 3248459 Calc Mean Gluc 283 mg/dL 05/02/2018 A1C HPLC 6345058 Hgb A1c 75437-3 11.5 % 05/02/2018 GFR CALC 6903182 GFR Non Afr Amr >60 mL/min 05/02/2018 GFR CALC 7278307 GFR Afr Amr >60 mL/min 05/02/2018 [facility] Gold 9981983 JI Gold Complete 02/28/2018 GFR CALC 8128309 GFR Non Afr Amr >60 mL/min 02/28/2018 GFR CALC 3791081 GFR Afr Amr >60 mL/min 02/28/2018 UA W/CII 9407154 UA Urine Appear Normal 02/28/2018 UA W/CII 3823462 UA Protein 1+ 02/28/2018 UA W/CII 4847332 UA Hemoglobin Negative 02/28/2018 UA W/CII 7480777 UA Glucose 4+ 02/28/2018 UA W/CII 9299014 UA Ketones Trace 02/28/2018 UA W/CII 5450870 UA pH 5.5 02/28/2018 UA W/CII 1240424 U Spec [place] 1.015 02/28/2018 UA W/CII 1918906 UA Bilirubin Negative 02/28/2018 UA W/CII 0686740 UA Nitrite NEG 02/28/2018 UA W/CII 3590043 UA Leuk Esteras Negative 02/28/2018 MICR 5949091 UA WBC/hpf 1 02/28/2018 MICR 1384554 UA RBC hpf 2 02/28/2018 MICR 9114025 UA WBC auto 3.8 /uL 02/28/2018 MICR 1137674 UA RBC auto 12.2 /uL 02/28/2018 MICR 4953789 UA SQ EPI auto 2.3 /uL 02/28/2018 MICR 6927996 UA H Cast auto 0.10 /uL 02/28/2018 CBC 3932447 WBC 6.4 10e9/L 02/28/2018 CBC 1284964 RBC 5.51 10e12/L 02/28/2018 CBC 8902091 HEMOGLOBIN 16.7 g/dL 02/28/2018 CBC 2059522 HEMATOCRIT 46.9 % 02/28/2018 CBC 2842254 MCV 85.1 fL 02/28/2018 CBC 4245133 MCH 30.3 pg 02/28/2018 CBC 7141399 MCHC 35.6 g/dL 02/28/2018 CBC 4051228 PLATELET COUNT 173 10e9/L 02/28/2018 CBC 8589074 Mean Plt Volume 11.6 fL 02/28/2018 CBC 5581431 Neut Auto 51.8 % 02/28/2018 CBC 7146719 Lymph Auto 39.9 % 02/28/2018 CBC 2332682 Bacon Auto 7.3 % 02/28/2018 CBC 8403640 Eos Auto 0.8 % 02/28/2018 CBC 0101104 RDW 13.3 % 02/28/2018 CBC 6558362 Baso Auto 0.2 % 02/28/2018 CBC 1576422 Neutrophil Abs 3.32 10e9/L 02/28/2018 CBC 2320790 Lymphocyte Abs 2.55 10e9/L 02/28/2018 CBC 0383390 Monocyte Abs 0.47 10e9/L 02/28/2018 CBC 0461104 Eosinophil Abs 0.05 10e9/L 02/28/2018 CBC 3053930 Basophil Abs 0.01 10e9/L 02/28/2018 CBC 5875498 RDW-SD 40.8 fL 02/28/2018 CHEM 14 6586184 AST 17 U/L 02/28/2018 CHEM 14 0012067 ALT 17 U/L 02/28/2018 CHEM 14 3664190 BUN 20 mg/dL 02/28/2018 CHEM 14 9009371 ALBUMIN 4.1 g/dL 02/28/2018 CHEM 14 4939078 CHLORIDE 97 mmol/L 02/28/2018 CHEM 14 4284048 Bili Total 1.3 mg/dL 02/28/2018 CHEM 14 4285597 ALK PHOS 78 U/L 02/28/2018 CHEM 14 5603847 SODIUM 135 mmol/L 02/28/2018 CHEM 14 5555131 CREATININE 1.09 mg/dL 02/28/2018 CHEM 14 0816870 CALCIUM 9.6 mg/dL 02/28/2018 CHEM 14 7500039 POTASSIUM 3.8 mmol/L 02/28/2018 CHEM 14 9523619 TOTAL PROTEIN 7.3 g/dL 02/28/2018 CHEM 14 6061925 GLUCOSE 349 mg/dL 02/28/2018 CHEM 14 4217915 Bicarbonate 29 mmol/L 02/28/2018 CHEM 14 4190482 AGAP 9 mmol/L 02/28/2018 [place] Spotted Fever Igg/Igm 684048 FEI MT SPOTTED FEVER IGM EIA . 09/05/2017 [place] Spotted Fever Igg/Igm 049471 RMSF, IGM 0.17 index 09/05/2017 [place] Spotted Fever Igg/Igm 739347 FEI MT SPOTTED FEVER IGG EIA FLEX . 09/05/2017 [place] Spotted Fever Igg/Igm 986650 RMSF, IGG SCREEN-FLEX Positive 09/05/2017 Fei Mtn Spot'D Fev Igg 970570 RMSF, IGG -TITER IFA <1:64 11/2016 Ehrlichia Chaffeensis Antibody Igm 141674 EHRLICHIA CHAFFEENSIS IGM < 1:16 09/03/2017 Ehrlichia Chaffeensis Antibody Igg 957419 EHRLICHIA CHAFFEENSIS IGG <1:64 09/03/2017 Lymes Disease Total Antibodies With Western Blot Reflex B. BURGDORFERI, IGG/IGM 0.223 08/30/2017 [place]ym[place] Disease Total Antibodies With Western Blot Reflex C-Reactive Protein Qnt Crqnt CRP 0.00 mg/dl 08/27/2017 Sed Rate Ord21 ESR 8 mm/hr 08/27/2017 Comp Metabolic Tof999 NA 135 mEq/L 08/16/2017 Comp Metabolic Zef249 K 4.1 mEq/L 08/16/2017 Comp Metabolic Fxd863 CL 98 mEq/L 08/16/2017 Comp Metabolic Zvq748 CO2 28.0 mEq/L 08/16/2017 Comp Metabolic Jfu078 ANION GAP 13 08/16/2017 Comp Metabolic Xir327 GLUCOSE 299 mg/dL 08/16/2017 Comp Metabolic Xox790 Creat 0.9 mg/dL 08/16/2017 Comp Metabolic Dme885 eGFR 90 ml/min/1.73m2 08/16/2017 Comp Metabolic Bcj691 BUN 20 mg/dL 08/16/2017 Comp Metabolic Btp028 B/C Ratio 21.5 Ratio 08/16/2017 Comp Metabolic Yoo140 CALCIUM 9.2 mg/dL 08/16/2017 Comp Metabolic Wav792 ALK PHOS 84 U/L 08/16/2017 Comp Metabolic Zfd238 AST(SGOT) 19 U/L 08/16/2017 Comp Metabolic Sia784 ALT(SGPT) 24 U/L 08/16/2017 Comp Metabolic Enf557 BILI T 1.1 mg/dL 08/16/2017 Comp Metabolic Ghs508 ALBUMIN 4.2 g/dL 08/16/2017 Comp Metabolic Wkb466 TPRO 7.2 g/dL 08/16/2017 Comp Metabolic Kda767 GLOB 3.0 g/dL 08/16/2017 Comp Metabolic Jjf871 A/G Ratio 1.4 Ratio 08/16/2017 Comp Metabolic Bgm269 Osmo 284 mOsmo 08/16/2017 %Hba1C Wyk708 % HbA1c 39288-4 12.5 % 08/16/2017 %Hba1C Ohr142 Gluc Ave 312 mg/dL 08/16/2017 Urine Culture Ucult Complete NO Growth Day 2 06/23/2017 Urine Culture Ucult Preliminary NO Growth Day 1 06/23/2017 C RAP A SC [id number] Strep A Negative 06/08/2017 %Hba1C Hlx781 % HbA1c 38238-7 9.5 % 05/04/2017 %Hba1C Ata826 Gluc Ave 226 mg/dL 05/04/2017 Tsh Ord6 [...] 31.7 pg 05/04/2017 Cbc With Differential Ord2 Bacon% 8.5 % 05/04/2017 Cbc With Differential Ord2 [...] 2.48 K/ul 05/04/2017 Cbc With Differential Ord2 Bacon ABS# 0.5 K/ul 05/04/2017 Cbc With Differential Ord2 Eos ABS# 0.1 K/ul 05/04/2017 Cbc With Differential Ord2 Baso ABS# 0.0 K/ul 05/04/2017 Comp Metabolic Fqk568 NA 135 mEq/L 05/04/2017 Comp Metabolic Zds145 K 4.2 mEq/L 05/04/2017 Comp Metabolic Vjy258 CL 99 mEq/L 05/04/2017 Comp Metabolic Mad961 CO2 26.0 mEq/L 05/04/2017 Comp Metabolic Sto518 ANION GAP 14 05/04/2017 Comp Metabolic Wiy011 GLUCOSE 277 mg/dL 05/04/2017 Comp Metabolic Yld326 Creat 0.9 mg/dL 05/04/2017 Comp Metabolic Xee583 eGFR 96 ml/min/1.73m2 05/04/2017 Comp Metabolic Qxv974 BUN 23 mg/dL 05/04/2017 Comp Metabolic Qqy711 B/C Ratio 26.1 Ratio 05/04/2017 Comp Metabolic Qdo929 CALCIUM 8.9 mg/dL 05/04/2017 Comp Metabolic Zff208 ALK PHOS 81 U/L 05/04/2017 Comp Metabolic Tyk605 AST(SGOT) 21 U/L 05/04/2017 Comp Metabolic Psb956 ALT(SGPT) 27 U/L 05/04/2017 Comp Metabolic Seu619 BILI T 1.2 mg/dL 05/04/2017 Comp Metabolic Kvy319 ALBUMIN 4.0 g/dL 05/04/2017 Comp Metabolic Frf152 TPRO 6.7 g/dL 05/04/2017 Comp Metabolic Jos729 GLOB 2.7 g/dL 05/04/2017 Comp Metabolic Xwa578 A/G Ratio 1.5 Ratio 05/04/2017 Comp Metabolic Ggs792 Osmo 284 mOsmo 05/04/2017 C A/B FLU 1574915 Influenza A Scr Negative 02/16/2017 C A/B FLU 6447693 Influenza B Scr Positive 02/16/2017 Cbc With [...] 30.3 pg 05/23/2016 Cbc With Differential Ord2 Bacon% 8.8 % 05/23/2016 Cbc With Differential Ord2 [...] 2.07 K/ul 05/23/2016 Cbc With Differential Ord2 [place] ABS# 0.5 K/ul 05/23/2016 Cbc With Differential Ord2 Eos ABS# 0.1 K/ul 05/23/2016 Cbc With Differential Ord2 Baso ABS# 0.0 K/ul 05/23/2016 Lipid Ord30 CHOL 397 mg/dL 05/17/2016 Lipid Ord30 HDL 48.0 mg/dl 05/17/2016 Lipid Ord30 TRIG 578 mg/dL 05/17/2016 Lipid Ord30 LDL Unable to calculate Due to elevated triglycerides mg/dL 05/17/2016 Lipid Ord30 C/HDL 8.3 Ratio 05/17/2016 %Hba1C Ygl137 % HbA1c 88269-5 12.4 % 05/16/2016 %Hba1C Nla165 Gluc Ave 309 mg/dL 05/16/2016 Cbc With [...] 87.4 fl 05/15/2016 Cbc With Differential Ord2 [place]% 7.8 % 05/15/2016 Cbc With Differential Ord2 [...] 2.04 K/ul 05/15/2016 Cbc With Differential Ord2 [place] ABS# 0.5 K/ul 05/15/2016 Cbc With Differential Ord2 Eos ABS# 0.1 K/ul 05/15/2016 Cbc With Differential Ord2 Baso ABS# 0.0 K/ul 05/15/2016 Tsh Ord6 hTSH II 1.70 uIU/mL 05/15/2016 Comp Metabolic Vjf757 NA 135 mEq/L 05/15/2016 Comp Metabolic Iro245 K 3.9 mEq/L 05/15/2016 Comp Metabolic Wus699 CL 96 mEq/L 05/15/2016 Comp Metabolic Ikh321 CO2 27.0 mEq/L 05/15/2016 Comp Metabolic Iqi727 ANION GAP 16 05/15/2016 Comp Metabolic Zkr500 GLUCOSE 183 mg/dL 05/15/2016 Comp Metabolic Tnq151 Creat 1.1 mg/dL 05/15/2016 Comp Metabolic Yyo026 eGFR 71 ml/min/1.73m2 05/15/2016 Comp Metabolic Vtq272 BUN 17 mg/dL 05/15/2016 Comp Metabolic Kmf984 B/C Ratio 14.9 Ratio 05/15/2016 Comp Metabolic Fwr865 CALCIUM 9.6 mg/dL 05/15/2016 Comp Metabolic Iyn472 ALK PHOS 100 U/L 05/15/2016 Comp Metabolic Jbg983 AST(SGOT) 20 U/L 05/15/2016 Comp Metabolic Rng419 ALT(SGPT) 20 U/L 05/15/2016 Comp Metabolic Bpf259 BILI T 1.3 mg/dL 05/15/2016 Comp Metabolic Cgd295 ALBUMIN 4.6 g/dL 05/15/2016 Comp Metabolic Fgb312 TPRO 8.1 g/dL 05/15/2016 Comp Metabolic Bkc485 GLOB 3.5 g/dL 05/15/2016 Comp Metabolic Iib257 A/G Ratio 1.3 Ratio 05/15/2016 Comp Metabolic Wmx426 Osmo 276 mOsmo 05/15/2016 Review of Systems [...] of skin Location: face 05/04/2017 patch left yarsanism Full Exam - General 1994 Constitutional general [...] CPT-4: J3301 09/30/2018 THER/PROPH/DIAG INJ SC/IM CPT-4: 36146 09/11/2018 TRIAMCINOLONE ACET INJ NOS CPT-4: J3301 09/11/2018 IMMUNIZATION ADMIN CPT -4: 23001 07/22/2018 FLU VAC NO PRSV 4 MENA 3 YRS+ CPT-4: 09628 07/22/2018 TRIAMCINOLONE ACET INJ NOS CPT-4: J3301 06/28/2018 KETOROLAC TROMETHAMINE INJ CPT-4: J1885 05/02/2018 FLU VAC NO PRSV 4 MENA 3 YRS+ CPT-4: 35649 08/16/2017 IMMUNIZATION ADMIN CPT -4: 66499 08/16/2017 URINALYSIS NONAUTO W/O SCOPE CPT-4: 80111 06/21/2017 TRIAMCINOLONE ACET INJ NOS CPT-4: J3301 05/04/2017 THER/PROPH/DIAG INJ SC/IM CPT-4: 09141 05/04/2017 TRIAMCINOLONE ACET INJ NOS CPT-4: J3301 02/16/2017 ROCEPHIN, PER 250 MG CPT-4: J0696 02/16/2017 ROCEPHIN, PER 250 MG CPT-4: J0696 10/06/2016 URINALYSIS NONAUTO W/O SCOPE CPT-4: 85075 07/18/2016 TRIAMCINOLONE ACET INJ NOS CPT-4: J3301 01/20/2016 Vital Signs Date Vital 10/14/2018 Blood Pressure 1: 124/70 Code : 8480-6 BMI: 33.6 Code : 81416-5 Heart Rate 1 : 76 bpm Height: 6'2" SpO2: 99% Temperature: 36.3 (C) / 97.3 (F) Weight: 262 lbs 09/30/2018 Blood Pressure 1: 138/82 Code : 8480-6 BMI: 33.6 Code : 75768-8 Heart Rate 1 : 82 bpm Height: 6'2" SpO2: 98% Temperature: 36.3 (C) / 97.3 (F) Weight: 262 lbs 09/09/2018 Blood Pressure 1: 140/80 Code : 8480-6 BMI: 33.0 Code : 12859-2 Heart Rate 1 : 97 bpm Height: 6'2" SpO2: 93% Temperature: 36.8 (C) / 98.2 (F) Weight: 257 lbs 07/22/2018 Blood Pressure 1: 120/78 Code : 8480-6 BMI: 31.6 Code : 50315-9 Heart Rate 1 : 87 bpm Height: 6'2" SpO2: 98% Weight: 246 lbs 07/16/2018 Blood Pressure 1: 132/74 Code : 8480-6 BMI: 31.2 Code : 64872-9 Heart Rate 1 : 90 bpm Height: 6'2" SpO2: 96% Weight: 243 lbs 07/01/2018 Blood Pressure 1: 142/82 Code : 8480-6 BMI: 31.8 Code : 35593-6 Heart Rate 1 : 88 bpm Height: 6'2" SpO2: 98% Weight: 248 lbs 06/28/2018 Blood Pressure 1: 132/76 Code : 8480-6 BMI: 31.8 Code : 19523-3 Heart Rate 1 : 107 bpm Height: 6'2" SpO2: 98% Temperature: 37.9 (C) / 100.3 (F) Weight: 248 lbs 06/18/2018 Blood Pressure 1: 138/82 Code : 8480-6 BMI: 31.8 Code : 99804-5 Heart Rate 1 : 82 bpm Height: 6'2" SpO2: 97% Weight: 248 lbs 06/04/2018 Blood Pressure 1: 128/84 Code : 8480-6 BMI: 33.9 Code : 58854-1 Heart Rate 1 : 86 bpm Height: 6'2" SpO2: 95% Weight: 264 lbs 05/13/2018 Blood Pressure 1: 130/80 Code : 8480-6 BMI: 31.1 Code : 01536-8 Heart Rate 1 : 100 bpm Height: 6'2" SpO2: 94% Weight: 242 lbs 05/02/2018 Blood Pressure 1: 134/84 Code : 8480-6 BMI: 31.2 Code : 13788-6 Heart Rate 1 : 93 bpm Height: 6'2" SpO2: 98% Weight: 243 lbs 04/29/2018 Blood Pressure 1: 142/88 Code : 8480-6 BMI: 31.6 Code : 53795-5 Heart Rate 1 : 96 bpm Height: 6'2" SpO2: 96% Temperature: 36.7 (C) / 98.1 (F) Weight: 246 lbs 03/13/2018 Blood Pressure 1: 120/76 Code : 8480-6 BMI: 30.9 Code : 46763-3 Heart Rate 1 : 112 bpm Height: 6'2" SpO2: 97% Weight: 241 lbs 03/07/2018 Blood Pressure 1: 108/78 Code : 8480-6 BMI: 30.0 Code : 12832-5 Heart Rate 1 : 87 bpm Height: 6'2" SpO2: 98% Weight: 234 lbs 02/28/2018 Blood Pressure 1: 106/74 Code : 8480-6 BMI: 30.0 Code : 96494-5 Heart Rate 1 : 101 bpm Height: 6'2" SpO2: 98% Temperature: 36.4 (C) / 97.5 (F) Weight: 234 lbs 02/13/2018 Blood Pressure 1: 110/78 Code : 8480-6 BMI: 30.0 Code : 97027-3 Heart Rate 1 : 106 bpm Height: 6'2" SpO2: 98% Weight: 234 lbs 01/29/2018 Blood Pressure 1: 106/68 Code : 8480-6 BMI: 30.0 Code : 49895-2 Heart Rate 1 : 108 bpm Height: 6'2" SpO2: 98% Weight: 234 lbs 08/27/2017 Blood Pressure 1: 134/76 Code : 8480-6 Heart Rate 1: 98 bpm Height: SpO2: 97% Weight: 08/16/2017 Blood Pressure 1: 128/80 Code : 8480-6 BMI: 32.0 Code : 92923-2 Heart Rate 1 : 94 bpm Height: [...] Code : 8480-6 BMI: 31.8 Code : 22304-5 Heart Rate 1 : 102 bpm Height: [...] Code : 8480-6 BMI: 31.8 Code : 22900-0 Heart Rate 1 : 85 bpm Height: 6'2" SpO2: 96% Temperature: 36.6 (C) / 97.9 (F) Weight: 248 lbs 02/12/2017 Blood Pressure 1: 126/76 Code : 8480-6 BMI: 31.8 Code : 79316-2 Heart Rate 1 : 106 bpm Height: 6'2" SpO2: 91% Weight: 248 lbs 02/05/2017 Blood Pressure 1: 146/86 Code : 8480-6 BMI: 31.9 Code : 97469-6 Heart Rate 1 : 98 bpm Height: 6'2" SpO2: 87% Temperature: 36.7 (C) / 98.0 (F) Weight: 248 lbs 8 oz 01/29/2017 Blood Pressure 1: 132/84 Code : 8480-6 BMI: 31.8 Code : 55264-6 Heart Rate 1 : 83 bpm Height: 6'2" SpO2: 97% Weight: 248 lbs 10/13/2016 Blood Pressure 1: 128/72 Code : 8480-6 Heart Rate 1: 86 bpm SpO2: 94% 10/09/2016 Blood Pressure 1: 128/68 Code : 8480-6 Heart Rate 1: 136 bpm SpO2: 94% Temperature: 36.8 (C) / 98.2 (F) 10/06/2016 Blood Pressure 1: 140/80 Code : 8480-6 BMI: 32.1 Code : 74609-7 Heart Rate 1 : 94 bpm Height: 6'2" SpO2: 95% Weight: 250 lbs 07/18/2016 Blood Pressure 1: 128/86 Code : 8480-6 BMI: 32.1 Code : 35781-7 Heart Rate 1 : 89 bpm Height: 6'2" SpO2: 96% Weight: 250 lbs 06/22/2016 Blood Pressure 1: 118/70 Code : 8480-6 BMI: 32.1 Code : 10160-4 Heart Rate 1 : 70 bpm Height: 6'2" SpO2: 97% Weight: 250 lbs 05/23/2016 Blood Pressure 1: 128/80 Code : 8480-6 BMI: 32.1 Code : 65676-5 Heart Rate 1 : 76 bpm Height: 6'2" SpO2: 98% Weight: 250 lbs 05/15/2016 Blood Pressure 1: 110/90 Code : 8480-6 BMI: 31.3 Code : 40794-2 Heart Rate 1 : 111 bpm Height: 6'2" SpO2: 97% Temperature: 36.6 (C) / 97.8 (F) Weight: 244 lbs 01/20/2016 Blood Pressure 1: 128/76 Code : 8480-6 BMI: 33.0 Code : 10189-5 Heart Rate 1 : 103 bpm Height: [...] data Encounters Encounter Performer Location Codes Date ([id number]) 59662 EST. PATIENT, LEVEL III Diagnosis: Cough[ICD10: R05] Diagnosis: Acute bronchitis, unspecified[ICD10: J20.9] Marcela Ha MD, [facility] CPT-4: 89086 10/14/2018 63913 EST. PATIENT, LEVEL III Diagnosis: Acute laryngopharyngitis[ICD10: J06.0] Diagnosis: Cough[ICD10: R05] [facility] CPT-4: 39893 09/30/2018 ([id number]) 45001 EST. PATIENT, LEVEL III Diagnosis: Acute recurrent maxillary sinusitis[ICD10: J01.01] Diagnosis: Cough[ICD10: R05] Diagnosis: Type 2 diabetes mellitus with hyperglycemia[ICD10: E11.65] [facility] CPT-4: 39579 09/09/2018 ([id number]) 40719 EST. PATIENT, LEVEL IV Diagnosis: Essential (primary) hypertension[ICD10: I10] Diagnosis: Mixed hyperlipidemia[ICD10: E78.2] Diagnosis: Bipolar disorder, current episode depressed, moderate[ICD10: F31.32] Diagnosis: Type 2 diabetes mellitus with other specified complication[ICD10: E11.69] Melida Ha MD, [facility] CPT-4: 56831 2017 ([id number]) 69952 EST. PATIENT, LEVEL III Diagnosis: Insomnia due to medical condition[ICD10: G47.01] Marcela Ha MD, [facility] CPT-4: 39263 07/16/2018 ([id number]) Miscellaneous no charge Diagnosis: Cough[ICD10: R05] Madeline Ha MD, [facility] CPT-4: 98334 07/01/2018 [id number] EST. PATIENT, LEVEL III Diagnosis: Cough[ICD10: R05] Diagnosis: Acute laryngopharyngitis[ICD10: J06.0] Diagnosis: Other allergic rhinitis[ICD10: J30.89] Madeline Ha MD, [facility] CPT-4: 53900 06/28/2018 ([id number]) 40078 EST. PATIENT, LEVEL IV Diagnosis: Type 2 diabetes mellitus with hyperglycemia[ICD10: E11.65] Diagnosis: Essential (primary) hypertension[ICD10: I10] Melida Ha MD, [facility] CPT-4: 09941 06/18/2018 ([id number]) 33400 EST. PATIENT, LEVEL IV Diagnosis: Type 2 diabetes mellitus with hyperglycemia[ICD10: E11.65] Diagnosis: Essential (primary) hypertension[ICD10: I10] Diagnosis: Localized edema[ICD10: R60.0] Melida Ha MD, [facility] CPT- 4: 34629 06/04/2018 ([id number]) 74516 EST. PATIENT, LEVEL III Diagnosis: Type 2 diabetes mellitus with hyperglycemia[ICD10: E11.65] Diagnosis: Myalgia[ICD10: M79.1] Diagnosis: Pain in right hip[ICD10: M25.551] Diagnosis: Pain in left hip[ICD10: M25.552] Marcela Ha MD, [facility] CPT-4: 22448 05/13/2018 ([id number]) 76191 EST. PATIENT, LEVEL III Diagnosis: Myalgia[ICD10: M79.1] Diagnosis: Pain in right hip[ICD10: M25.551] Diagnosis: Pain in left hip[ICD10: M25.552] Macrela Ha MD, [facility] CPT-4: 39723 05/02/2018 ([id number]) 20581 EST. PATIENT, LEVEL IV Diagnosis: Essential (primary) hypertension[ICD10: I10] Diagnosis: Type 2 diabetes mellitus with hyperglycemia[ICD10: E11.65] Diagnosis: Major depressive disorder, single episode, moderate[ICD10: F32.1] Diagnosis: Myalgia[ICD10: M79.1] Marcela Ha MD, [facility] CPT-4: 16472 04/29/2018 ([id number]) 49238 EST. PATIENT, LEVEL IV Diagnosis: Type 2 diabetes mellitus with hyperglycemia[ICD10: E11.65] Diagnosis: Essential (primary) hypertension[ICD10: I10] Diagnosis: Major depressive disorder, single episode, moderate[ICD10: F32.1] Melida Ha MD, [facility] CPT-4: 51319 03/13/2018 ([id number]) 14510 EST. PATIENT, LEVEL III Diagnosis: Type 2 diabetes mellitus with hyperglycemia[ICD10: E11.65] Diagnosis: Bipolar disorder, current episode depressed, moderate[ICD10: F31.32] Diagnosis: Orthostatic hypotension[ICD10: I95.1] Marcela Ha MD, [facility] CPT-4: 41464 03/07/2018 ([id number]) 54350 EST. PATIENT, LEVEL IV Diagnosis: Type 2 diabetes mellitus with hyperglycemia[ICD10: E11.65] Diagnosis: Major depressive disorder, single episode, moderate[ICD10: F32.1] Diagnosis: Orthostatic hypotension[ICD10: I95.1] Diagnosis: Other fatigue[ICD10: R53.83] Marcela Ha MD, [facility] CPT-4: 46083 02/28/2018 01696 EST. PATIENT, LEVEL IV Diagnosis: Other fatigue[ICD10: R53.83] Diagnosis: Other malaise[ICD10: R53.81] Diagnosis: Gastro-esophageal reflux disease without esophagitis[ICD10: K21.9] Madeline Ha MD, [facility] CPT-4: 64268 02/13/2018 ([id number]) 11551 EST. PATIENT, LEVEL IV Diagnosis: Type 2 diabetes mellitus with foot ulcer[ICD10: E11.621] Diagnosis: Essential (primary) hypertension[ICD10: I10] Diagnosis: Gastro-esophageal reflux disease without esophagitis[ICD10: K21.9] Marcela Ha MD, [facility] CPT-4: 75767 01/29/2018 89499 EST. PATIENT, LEVEL III Diagnosis: Other malaise[ICD10: R53.81] Diagnosis: Other fatigue[ICD10: R53.83] Diagnosis: Pain in right shoulder[ICD10: M25.511] Diagnosis: Pain in left shoulder[ICD10: M25.512] Madeline Ha MD, [facility] CPT-4: 57409 08/27/2017 ([id number]) 40685 EST. PATIENT, LEVEL IV Diagnosis: Essential (primary) hypertension[ICD10: I10] Diagnosis: Type 2 diabetes mellitus with hyperglycemia[ICD10: E11.65] Diagnosis: VACCIN FOR INFLUENZA[ICD10: Z23] Melida Ha MD, [facility] CPT-4: 48257 08/16/2017 21026 EST. PATIENT, LEVEL III Diagnosis: Zoster without complications[ICD10: B02.9] Madeline Ha MD, [facility] CPT-4: 97154 07/26/2017 ([id number]) 76140 EST. PATIENT, LEVEL III Diagnosis: Cellulitis of right lower limb[ICD10: L03.115] Marcela Ha MD, [facility] CPT-4: 83587 07/03/2017 84749 EST. PATIENT, LEVEL II Diagnosis: Laceration without foreign body of left forearm, initial encounter[ ICD10: S51.812A] Marcela Ha MD, [facility] CPT-4: 56630 06/29/2017 ([id number]) 99704 EST. PATIENT, LEVEL III Diagnosis: Cellulitis of right lower limb[ICD10: L03.115] Diagnosis: Type 2 diabetes mellitus with foot ulcer[ICD10: E11.621] Marcela Ha MD , [facility] CPT-4: 40072 06/18/2017 ([id number]) 86871 EST. PATIENT, LEVEL IV Diagnosis: Cellulitis of right lower limb[ICD10: L03.115] Diagnosis: Acute laryngopharyngitis[ICD10: J06.0] Diagnosis: Gastro-esophageal reflux disease without esophagitis[ICD10: K21.9] Marcela Ha MD, [facility] CPT-4: 27678 06/07/2017 ([id number]) 50218 EST. PATIENT, LEVEL III Diagnosis: Type 2 diabetes mellitus with hyperglycemia[ICD10: E11.65] Diagnosis: Insect bite (nonvenomous) of abdominal wall, initial encounter[ICD10 : S30.861A] Marcela Ha MD, [facility] CPT-4: 42978 05/17/2017 ([id number]) 90107 EST. PATIENT, LEVEL III Diagnosis: Allergic contact dermatitis due to plants, except food[ICD10: L23.7] Melida Ha MD, [facility] CPT-4: 80459 05/04/2017 ([id number]) 74689 EST. PATIENT, LEVEL III Diagnosis: Essential (primary) hypertension[ICD10: I10] Marcela Ha MD, [facility] CPT-4: 87457 03/15/2017 ([id number]) 38477 EST. PATIENT, LEVEL III Diagnosis: Cough[ICD10: R05] Diagnosis: Essential (primary) hypertension[ICD10: I10] Marcela Ha MD, [facility] CPT-4: 88069 03/01/2017 ([id number]) 58375 EST. PATIENT, LEVEL III Diagnosis: Cough[ICD10: R05] Diagnosis: Nasal congestion[ICD10: R09.81] Diagnosis: Acute recurrent maxillary sinusitis[ICD10: J01.01] Marcela Ha MD, [facility] CPT-4: 08604 02/16/2017 ([id number]) 27225 EST. PATIENT, LEVEL III Diagnosis: Type 2 diabetes mellitus with hyperglycemia[ICD10: E11.65] Marcela Ha MD [facility] CPT-4: 62872 02/12/2017 ([id number]) 53399 EST. PATIENT, LEVEL IV Diagnosis: Type 2 diabetes mellitus with hyperglycemia[ICD10: E11.65] Diagnosis: Muscle weakness (generalized)[ICD10: M62.81] Diagnosis: Disorientation, unspecified[ICD10: R41.0] Marcela Ha MD [facility] CPT-4: 90245 02/05/2017 ([id number]) Patient admitted to the hospital from clinic (NO CHARGE) Diagnosis: Type 2 diabetes mellitus with hyperglycemia[ICD10: E11.65] Diagnosis: Disorientation, unspecified[ICD10: R41.0] Diagnosis: Muscle weakness (generalized)[ICD10: M62.81] Marcela Ha MD [facility] CPT-4: 90433A 01/29/2017 ([id number]) Miscellaneous no charge Diagnosis: Cellulitis of right lower limb[ICD10: L03.115] Marcela Ha MD [facility] CPT-4: 94189 10/13/2016 ([id number]) Miscellaneous no charge Diagnosis: Type 2 diabetes mellitus with foot ulcer[ICD10: E11.621] Diagnosis: Pain in right foot[ICD10: M79.671] Marcela Ha MD [facility] CPT-4: 55208 10/09/2016 68341 EST. PATIENT, LEVEL II Diagnosis: Cellulitis of right lower limb[ICD10: L03.115] Marcela Ha MD [facility] CPT-4: 19228 10/06/2016 ([id number]) 12745 EST. PATIENT, LEVEL IV Diagnosis: Low back pain[ICD10: M54.5] Diagnosis: Other deformities of toe(s) (acquired), left foot[ICD10: M20.5X2] Diagnosis: Type 2 diabetes mellitus with foot ulcer[ICD10: E11.621] Marcela Ha MD [facility] CPT-4: 32012 07/18/2016 ([id number]) 26557 EST. PATIENT, LEVEL III Diagnosis: Type 2 diabetes mellitus with hyperglycemia[ICD10: E11.65] Marcela Ha MD [facility] CPT-4: 66928 06/22/2016 ([id number]) 64398 EST. PATIENT, LEVEL IV Diagnosis: Type 2 diabetes mellitus with hyperglycemia[ICD10: E11.65] Diagnosis: Mixed hyperlipidemia[ICD10: E78.2] Diagnosis: Other hemoglobinopathies[ICD10: D58.2] Marcela Ha MD, [facility] CPT-4: 69527 05/23/2016 ([id number]) 12609 EST. PATIENT, LEVEL IV Diagnosis: Type 2 diabetes mellitus with other specified complication[ICD10: E11.69] Diagnosis: Dehydration[ICD10: E86.0] [facility] CPT-4: 85865 05/15/2016 ([id number]) OFFICE VISIT, NEW - LEVEL 3 Diagnosis: Allergic contact dermatitis due to plants, except food[ICD10: L23.7] Madeline Ha MD, [facility] CPT-4: 60531 01/20/2016 Plan of Care Planned Activity Notes [...] Plan: CHEST X-RAY 2VW FRONTAL&LATL LOINC : 05700-2 Pending 10/14/2018 Visit Plan: URI - Pt [...] allergy spray. 09/30/2018 Appointment: Madeline Kennedy WPtel: [address] [place], [place] [phone] (15 min) Moderate 09/30/2018 Patient Education: Patient [...] Hgb A1C 09/09/2018 Appointment: Marcela Oshea WPtel: [facility]5 [phone] (15 min) Moderate 09/09/2018 Patient Education: Patient Medication Summary Completed 09/09/2018 Patient Education: Patient Medication Summary Completed 09/06/2018 Patient Education: Cholesterol Management Completed 09/06/2018 Care Plan: Comp Metabolic Pending 09/06/2018 Care Plan: Cbc With Differential Pending 09/06/2018 Care Plan: %Hba1C LOINC : 83280-1 Pending 09/06/2018 Care Plan: Tsh Pending 09/06/2018 Care Plan: Lipid Pending 09/06/2018 Appointment: Marcela Oshea WPtel: [facility]5 [phone] (15 min) Moderate 08/26/2018 Appointment: Marcela Oshea WPtel: [address] [place], [place] [phone] (15 min) Moderate 08/23/2018 Visit Plan: Hypertension [...] clinic. 07/22/2018 Appointment: Melida Ha WPtel: [phone] [phone] (15 min) Moderate 07/22/2018 Patient Education: Patient [...] time insomnia. 07/16/2018 Appointment: Marcela Oshea WPtel: [phone] [phone] (30 min) Complex 07/16/2018 Patient Education: Patient Medication Summary Completed 07/16/2018 Visit Plan: cough - improved - notify clinic if symptoms do not completely resolve, or with any questions or concerns. 07/01/2018 Appointment: Madeline Kennedy WPtel: [phone] [phone] (15 min) Moderate 07/01/2018 Patient Education: Patient [...] allergy spray. 06/28/2018 Appointment: Madeline Kennedy WPtel: [phone] [facility] (15 min) Moderate 06/28/2018 Patient Education: Patient Medication Summary Completed 06/28/2018 Patient Education: Patient Medication Summary Completed 06/21/2018 Care Plan: Annabel RICKS MA Pending 06/21/2018 Visit Plan: Diabetes Mellitus - [...] at home. 06/18/2018 Appointment: Melida Ha WPtel: [phone] [facility] (15 min) Moderate 06/18/2018 Patient Education: Patient [...] improves. 06/04/2018 Appointment: Melida Ha WPtel: [phone] [facility] (15 min) Moderate 06/04/2018 Patient Education: Patient [...] allow for greater blood glucose control. Joint hsbc-bgyoopgr-hjaprnx- symptoms have improved -stop meloxicam due to upset stomach-call if symptoms return 05/13/2018 Appointment: Marcela Oshea WPtel: [phone] [phone] (30 min) Complex 05/13/2018 Patient Education: Patient Medication Summary Completed 05/13/2018 Visit Plan: Bilateral hip fttu-jyxggzpe-qmvkgfm IM injection administered today for c/o continued myalgia/arthralgia. Patient to start taking Meloxicam 15mg PO daily. Advised to return to clinic if symptoms do not improve. 05/02/2018 Appointment: Marcela Oshea WPtel: [phone] [phone] (30 min) Complex 05/02/2018 Patient Education: [...] readings at home. Diabetes Mellitus -check labs Mylxpagg-jwhtpsz-dzvk bite-rx for doxycycline-follow up in 2 weeks 04/29/2018 Appointment: Marcela Oshea WPtel: [phone] [phone] [place] (15 min) Moderate 04/29/2018 Patient Education: Patient Medication Summary Completed 04/29/2018 Appointment: Melida Ha WPtel: [phone] [facility] [place] (15 min) Moderate 04/15/2018 Appointment: Marcela Oshea WPtel: [phone] [phone] [place] (30 min) Complex 03/21/2018 Visit [...] on cymbalta 03/13/2018 Appointment: Melida Ha WPtel: [phone] [facility] [place] (30 min) Complex 03/13/2018 Patient Education: Patient Medication Summary Completed 03/13/2018 Visit Plan: DM-continue same medications-monitor blood sugars routinely as directed -rx for new glucometer and test strips provided Bipolar-currently depressed-patient start on vraylar-follow up in 2 weeks, sooner if needed. Patient and verbalied understanding of plan. Hypotension- stay off losartan 03/07/2018 Appointment: Marcela Oshea WPtel: [facility]0 [phone] (30 min) Complex 03/07/2018 Patient Education: Patient Medication Summary Completed 03/07/2018 Appointment: Melida Ha WPtel: [facility]7 [facility] (15 min) Moderate 03/04/2018 Visit Plan: Hypotension-continue [...] this patient. 02/28/2018 Appointment: [facility]Ptel[phone] (30 min) Complex 02/28/2018 Patient Education: Patient [...] not improving. 02/13/2018 App[facility]ment: [phone] (15 min) Moderate 02/13/2018 Patient Education: Patient Medication Summary Completed 02/13/2018 Referral: Sun Glynn Patient informed. Referral info faxed. Completed Visit Plan: DM-weight loss-not checking blood sugars- patient sent for labs today HTN-low tmzfp-rqapnhf-wzddc labs Callus of foot and fissue of heel-refer to Dr Glynn for evaluation Esophageal Reflux - the patient has been counseled against excessive intake of caffeine, spicy foods, peppermint , and cinnamon - all of which can exacerbate esophageal reflux. The patient is to take medications as prescribed and call the office if the symptoms are not improving. 01/29/2018 Appointment: [facility]el[phone] [phone] (30 min) Complex 01/29/2018 Patient Education: Patient Medication Summary Completed 01/29/2018 Care Plan: Comp Metabolic Cancelled 01/29/2018 Care Plan: Cbc With Differential Cancelled 01/29/2018 Care Plan: %Hba1C LOINC : 56138-4 Cancelled 01/29/2018 Care Plan: Referral Order SNOMED-CT : [id number] Cancelled 01/29/2018 Visit Plan: Fatigue, malaise, joint [...] or concerns. 08/27/2017 Appointment: [facility]el[phone] [facility] (15 min) Moderate 08/27/2017 Patient Education: [...] today - 08/16/2017 Appointment: Melida Ha WPtel: [phone] [phone] (30 min) Complex 08/16/2017 Patient Education: Patient Medication Summary Completed 08/16/2017 Patient Education: Obesity Completed 08/16/2017 Appointment: Madeline Kennedy WPtel: [phone] [phone] (30 min) Complex 08/07/2017 Visit Plan: [...] contagious. 07/26/2017 Appointment: Madeline Kennedy WPtel: [phone] [facility] [place] (15 min) Moderate 07/26/2017 Patient Education: Patient Medication Summary Completed 07/26/2017 Visit Plan: Cellulitis right foot-cultured today in the office-home health to reapply wound vac--appt with wound care on to evaluate for debridement- 07/03/2017 Appointment: Marcela Oshea WPtel: [phone] [phone] [place] (30 min) Complex 07/03/2017 Patient Education: Patient Medication Summary Completed 07/03/2017 Visit Plan: Abrasion left arm - Pt was instructed to keep the wound clean, wash with antibacterial soap, use triple antibiotic ointment, call if redness, pustular drainage, or any other acute concerns. 06/29/2017 Appointment: Marcela Oshea WPtel: [facility]3 [phone] (15 min) Moderate 06/29/2017 Patient Education: Patient [...] of plan. 06/18/2017 Appointment: Marcela Oshea WPtel: [facility]4 [place] [phone] (15 min) Moderate 06/18/2017 Patient Education: Patient [...] diet-start prilosec 06/07/2017 Appointment: Marcela Oshea WPtel: [facility]0 [phone] (10 min) Simple 06/07/2017 Patient Education: Patient [...] bite-continue doxycycline 05/17/2017 Appointment: Marcela Oshea WPtel: [facility]5 [phone] (30 min) Complex 05/17/2017 Patient Education: [...] if you want anai edge called into [facility]. 05/04/2017 Appointment: Marcela Oshea WPtel: [address] [place], [place] [phone] (30 min) Complex 05/04/2017 Patient Education: Patient [...] home. Cough-resolved 03/15/2017 Appointment: Marcela Oshea WPtel: [facility]0 [phone] [place] (15 min) Moderate 03/15/2017 Patient Education: Patient Medication Summary Completed 03/15/2017 Appointment: Marcela Oshea WPtel: [facility]5 [phone] (30 min) Complex 03/12/2017 Visit Plan: [...] as discussed 02/16/2017 Appointment: Marcela Oshea WPtel: [phone] (15 min) Moderate 02/16/2017 Patient Education: Patient [...] less controlled. 02/12/2017 Appointment: Marcela Oshea WPtel: [facility] (30 min) Complex 02/12/2017 Patient Education: Patient Medication Summary Completed 02/12/2017 Appointment: Marcela Oshea WPtel: [facility] (30 min) Complex 02/06/2017 Visit Plan: Diabetes [...] will consider 02/05/2017 Appointment: Marcela Oshea WPtel: [facility]5 [phone] [place] (30 min) Complex 02/05/2017 Patient Education: Patient Medication Summary Completed 02/05/2017 Appointment: Marcela Oshea WPtel: [facility]5 [phone] [place] (30 min) Complex 01/30/2017 Visit Plan: Acute confusion-uncontrolled diabetes- chronically noncompliant with treatment and stopped his insulin several months ago-r/o stroke vs DKA-Dr Ha in to evaluate patient-plan to admit for further work up and treatment-patient's called and she transported him to the hospital 01/29/2017 Appointment: Marcela Oshea WPtel: [facility]5 [phone] [place] (30 min) Complex 01/29/2017 Patient Education: Patient Medication Summary Completed 01/29/2017 Patient Education: Obesity Completed 01/29/2017 Visit Plan: Right foot pain-MRI shows foreign body-appt with Dr Grewal for evaluation on Sunday. 10/13/2016 Appointment: Marcela Oshea WPtel: [facility]5 [phone] [place] (15 min) Moderate 10/13/2016 Patient Education: Patient Medication Summary Completed 10/13/2016 Appointment: Marcela Oshea WPtel: [facility]5 [phone] [place] (30 min) Complex 10/12/2016 Visit Plan: Right foot brix-ywzgucyv-qekor washer dropped on foot-xray negative but pain continues to increase-recommend MRI of foot for further evaluation-refer to wound care for lesions on right foot, patient has diabetes and history of osteomyelitis-culture obtained today-continue oral abx- follow up in the office on , sooner if needed 10/09/2016 Visit Plan: Right foot corb-tousaqfb-cuvpk washer dropped on foot-xray negative but pain continues to increase-recommend MRI of foot for further evaluation-refer to wound care for lesions on right foot, patient has diabetes and history of osteomyelitis-culture obtained today-continue oral abx- follow up in the office on , sooner if needed 10/09/2016 Visit Plan: Right foot aszp-qbigjgzc-bmbhp washer dropped on foot-xray negative but pain continues to increase-recommend MRI of foot for further evaluation-refer to wound care for lesions on right foot, patient has diabetes and history of osteomyelitis-culture obtained today-continue oral abx- follow up in the office on , sooner if needed 10/09/2016 Appointment: Marcela Oshea WPtel: [address] [place], [place] [phone] (30 min) Complex 10/09/2016 Patient Education: Patient Medication Summary Completed 10/09/2016 Visit Plan: Cellulitis - continue with oral antibiotics as previously directed, return to clinic as previously directed, call for acute change in symptoms, worsening redness, warmth, discharge. 10/06/2016 Appointment: Marcela Oshea WPtel: [address] [place], [place] [phone] (10 min) Simple 10/06/2016 Patient Education: Patient Medication Summary Completed 10/06/2016 Appointment: Marcela Oshea WPtel: [address] [place], [place] [phone] (30 min) Complex 08/24/2016 Referral: Sun Glynn Referral Completed 07/21/2016 Visit Plan: Low back pain- history of spinal fusion- patient for xray lumbar spine-RX sent to [facility] and instructed on use-topical voltaren samples provided and instructed on use. Ok to use tylenol as needed as well. The patient is to call the office if the pain is worsening or does not improve. Pressure ulcer left 4th toe-refer to Dr Glynn for evaluation 07/18/2016 Appointment: Marcela Oshea WPtel: [phone] (30 min) Complex 07/18/2016 Patient Education: Patient Medication Summary Completed 07/18/2016 Patient Education: Obesity Completed 07/18/2016 Care Plan: Referral Order SNOMED-CT : [id number] Cancelled 07/18/2016 Visit Plan: Diabetes Mellitus - [...] glucose control. 06/22/2016 [facility]ment[facility] [phone] [phone] (30 min) Complex 06/22/2016 Patient Education: Patient [...] CBC today 05/23/2016 [facility]ment[facility] [phone] [phone] (30 min) Complex 05/23/2016 Patient Education: Patient [...] of plan. 05/15/2016 Appointment: Marcel[facility]she[facility] WPtel[phone] (15 min) Moderate 05/15/2016 Patient Education: Patient [...] if you want anai edge called into [facility]. 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 Low back pain- history of spinal fusion-patient for xray lumbar spine-RX sent to [facility] pharmacy and instructed on use-topical voltaren [...] for fracture from injury . Right foot hdfh-jerenbth-skcel washer dropped on foot-xray negative but pain [...] for fracture from injury . Right foot ccbs-tzxkgzqk-uctcm washer dropped on foot-xray negative but pain [...] for fracture from injury . Right foot gvpk-fqsdkvze-orbnt washer dropped on foot-xray negative but pain continues to increase-recommend MRI of foot for further evaluation-refer to wound care for lesions on right foot, patient has diabetes and history of osteomyelitis-culture obtained today-continue oral abx-follow up in the office on , sooner if needed . Bilateral hip gnbh-wcbxcsww-jtpxbqh IM injection administered today for c/o continued myalgia/arthralgia. Patient to start taking Meloxicam 15mg PO daily. Advised to return to clinic if symptoms do not improve. . DM-weight loss-not checking blood sugars-patient sent for labs today HTN-low aazhz-vqtkekl-budqt labs Callus of foot and fissue of [...] readings are starting to become less controlled. Cedpkpfam-kjrugapf-bghwlmfr to monitor Generalized weakness-refer for PT-patient refuses [...] allow for greater blood glucose control. Joint zkgw-dxcrsfhv-oksdlgl-symptoms have improved -stop meloxicam due to upset [...] readings at home. Diabetes Mellitus -check labs Wubqqyfr-vjlisos-iabx bite-rx for doxycycline-follow up in 2 weeks [...]
--- OUTSIDE RECORDS SUMMARY | 2018-10-20 10:58 | XMS REPORT | CCD ---
Author Author Madeline Kennedy MD, [facility] Address [address] [place] [address] Phone Care Team Providers [facility] Professor Name Role Phone PP Unavailable CCM Unavailable Summary Purpose Interface Exchange Insurance Providers Payer name Policy type / Coverage type Covered constitution party ID Effective Begin Date Effective End Date Blue Cross Blue Shield [facility] Blue Cross/Blue Shield [id number] Unknown Family history Father Diagnosis Age At Onset Hyperlipidemia Unknown Heart Attack Unknown Mother Diagnosis Age At Onset Hypertension Unknown Social History Social History Element Codes Description Effective Dates Marital status Unknown Mignon 01/20/2016 Number of children Unknown 4 01/20/2016 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/[address]: 195794031 Never smoker 01/20/[address]: 817548511 Never drinks alcohol 01/20/2016 Allergies, Adverse Reactions, Alerts Substance Reaction Codes Entered Date Inactivated Date Status * NO KNOWN DRUG ALLERGIES Unknown 05/23/2016 No Inactive Date Active Past Medical History Illness Codes Condition Status Onset Date Resolved Date Acute recurrent maxillary sinusitis ICD-9: 461.0 ICD-10: J01.01 Active 02/16/2017 Unknown Cough ICD-9: 786.2 ICD-10: R05 Active 02/16/2017 Unknown Type 2 diabetes mellitus [...] ICD-9: 327.01 ICD-10: G47.01 Active 07/16/2018 Unknown Acute laryngopharyngitis ICD-9: 465.0 ICD-10: J06.0 Active 06/07/2017 Unknown Other allergic rhinitis ICD-9: 477.8 ICD-10: [...] Condition Codes Effective Dates Condition Status Acute recurrent maxillary sinusitis ICD-9: 461.0 ICD-10: J01.01 02/16/2017 Active Cough ICD-9: 786.2 ICD-10: R05 02/16/2017 Active Type 2 diabetes mellitus with [...] condition ICD-9: 327.01 ICD-10: G47.01 07/16/2018 Active Acute laryngopharyngitis ICD-9: 465.0 ICD-10: J06.0 06/07/2017 Active Other allergic rhinitis ICD-9: 477.8 ICD-10: [...] Start Date Stop Date Status Fill Instructions Kenalog 40 mg/mL suspension for injection RxNorm: 8562205 Milliliter(s) Inj 09/11/2018 09/11/2018 Inactive Zyrtec 10 mg tablet RxNorm: 9384644 1 Tablet(s) PO daily 09/0910/08/2018 Active Keflex 500 mg capsule RxNorm: 144694 1 Capsule(s) PO TID 201709/15/2018 Active Tresiba FlexTouch U-200 insulin 200 unit/mL (3 mL) subcutaneous pen RxNorm: 1765135 50 Unit(s) SQ daily 08/30/2018 09/28/2018 Active please give him 30 day supply Tresiba FlexTouch U-200 insulin 200 unit/mL (3 mL) subcutaneous pen RxNorm: 1725356 50 Unit(s) SQ daily 08/30/2018 08/29/2018 Inactive please give him 30 day supply Novolog Flexpen U-100 Insulin aspart 100 unit/mL subcutaneous RxNorm: 6429559 8 Unit(s) SQ AC 08/13/2018 No Stop Date Active Novolog Flexpen U-100 Insulin aspart 100 unit/mL subcutaneous RxNorm: 1721598 8 Unit(s) SQ AC 07/22/20182017 Inactive this is an update on his medication Novolog Flexpen U-100 Insulin aspart 100 unit/mL subcutaneous RxNorm: 9327111 12 Unit(s) SQ AC 07/05/20182017 Inactive this is an update on his medication Toujeo SoloStar U-300 Insulin 300 unit/mL (1.5 mL) subcutaneous pen RxNorm: 1502109 INJECT 50 UNITS UNDER THE SKIN DAILY 07/01/2018 08/29/2018 Inactive Mucinex 600 mg tablet, extended release RxNorm: 762315 1 Tablet(s) PO BID 06/28/2018 07/04/2018 Inactive Zofran 4 mg tablet RxNorm: 692999 1 Tablet(s) PO TID as needed nausea 06/28/2018 07/02/2018 Inactive Kenalog 40 mg/mL suspension for injection RxNorm: 8761244 Milliliter(s) Inj 06/28/2018 06/28/2018 Inactive Flonase Allergy Relief 50 mcg/actuation nasal spray, suspension RxNorm: 0879334 1 [place] NASAL BID 06/28/20182017 Inactive Lyrica 50 mg capsule RxNorm: 633364 Capsule(s) PO daily 201707/07/2018 Inactive Novolog Flexpen U-100 Insulin aspart 100 unit/mL subcutaneous RxNorm: 7115902 10 Unit(s) SQ AC 06/18/20182017 Inactive this is an update on his medication Lasix 20 mg tablet RxNorm: 070763 1 Tablet(s) PO BIW 201707/02/2018 Inactive atorvastatin 80 mg tablet RxNorm: 439109 1 Tablet(s) PO QHS 04/201812/06/2018 Active clonazepam 1 mg tablet RxNorm: 198267 2 Tablet(s) PO HS 201706/04/2019 Active clonazepam 1 mg tablet RxNorm: 791591 2 Tablet(s) PO HS as needed 06/10/2018 06/09/2018 Inactive Lyrica 50 mg capsule RxNorm: 547677 Capsule(s) PO daily 201707/08/2018 Inactive Lasix 20 mg tablet RxNorm: 979787 1 Tablet(s) PO TIW 201706/11/2018 Inactive Toujeo SoloStar U-300 Insulin 300 unit/mL (1.5 mL) subcutaneous pen RxNorm: 7153519 50 Unit(s) SQ daily 05/07/2018 06/30/2018 Inactive meloxicam 15 mg tablet RxNorm: 753946 15 Milligram(s) PO daily 05/02/2018 05/12/2018 Inactive ketorolac 30 mg/mL injection solution RxNorm: 112849 2 Milliliter(s) Inj 05/02/2018 05/02/2018 Inactive Toujeo SoloStar U-300 Insulin 300 unit/mL (1.5 mL) subcutaneous pen RxNorm: 3686692 45 Unit(s) daily 04/29/2018 Inactive clonazepam 1 mg tablet RxNorm: 691020 1 Tablet(s) PO Q8 as needed 04/29/2018 06/09/2018 Inactive doxycycline hyclate 100 mg tablet RxNorm: 6216852 1 Tablet(s) PO BID 04/29/2018 05/12/2018 Inactive Cymbalta 30 mg capsule,delayed release RxNorm: 804265 1 Capsule(s) PO QAM 03/13/2018 10/08/2018 Active Lexapro 10 mg tablet RxNorm: 974132 1 Tablet(s) PO QPM 201703/03/2018 Inactive Toujeo SoloStar U-300 Insulin 300 unit/mL (1.5 mL) subcutaneous pen RxNorm: 5312779 20 Unit(s) daily 02/28/2018 Inactive Protonix 40 mg tablet,delayed release RxNorm: 812299 1 Tablet(s) PO daily 01/29/2018 06/09/2018 Inactive clonazepam 1 mg tablet RxNorm: 266942 1 Tablet(s) PO Q8 as needed 12/12/2017 03/10/2018 Inactive Tamiflu 75 mg capsule RxNorm: 045632 1 Capsule(s) PO BID 201712/03/2017 Inactive doxycycline hyclate 100 mg capsule RxNorm: 2375617 1 Capsule(s) PO BID 09/07/2017 09/20/2017 Inactive doxycycline hyclate 100 mg capsule RxNorm: 2930253 1 Capsule(s) PO BID 08/27/2017 09/06/2017 Inactive prednisone 20 mg tablet RxNorm: 344133 2 Tablet(s) PO daily 08/31/2017 Inactive clopidogrel 75 mg tablet RxNorm: 353407 1 Tablet(s) PO daily 06/09/2018 Inactive atorvastatin 40 mg tablet RxNorm: 387784 1 Tablet(s) PO QHS 02/27/2018 Inactive losartan 25 mg tablet RxNorm: 938133 TAKE ONE TABLET BY MOUTH DAILY 08/22/2017 06/09/2018 Inactive Toujeo SoloStar 300 unit/mL (1.5 mL) subcutaneous insulin pen RxNorm: 0828365 45 Unit(s) daily 08/17/2017 08/20/2017 Inactive mupirocin 2 % topical ointment RxNorm: 148002 1 Application TOP TID to the lesions on chest 08/16/2017 08/25/2017 Inactive Toujeo SoloStar 300 unit/mL (1.5 mL) subcutaneous insulin pen RxNorm: 7867133 40 Unit(s) daily 08/16/2017 08/16/2017 Inactive valacyclovir 1 gram tablet RxNorm: 649297 1 Tablet(s) PO TID 08/01/2017 Inactive clonazepam 1 mg tablet RxNorm: 607991 1 Tablet(s) PO Q8 as needed 07/03/2017 09/30/2017 Inactive Levaquin 500 mg tablet RxNorm: 258465 1 Tablet(s) PO daily 06/25/2017 Inactive Levaquin 500 mg tablet RxNorm: 758623 1 Tablet(s) PO daily 06/21/2017 Inactive losartan 25 mg tablet RxNorm: 730335 1 Tablet(s) PO daily 201608/16/2017 Inactive nystatin 100,000 unit/mL oral suspension RxNorm: 670555 5 Milliliter(s) PO QID Swish et swallow 06/18/2017 06/17/2017 Inactive nystatin 100,000 unit/mL oral suspension RxNorm: 185143 5 Milliliter(s) PO QID Swish et swallow 06/18/2017 06/27/2017 Inactive Cipro 500 mg tablet RxNorm: 148111 1 Tablet(s) PO BID 201606/18/2017 Inactive Cipro 500 mg tablet RxNorm: 782516 1 Tablet(s) PO BID 201606/11/2017 Inactive Toujeo SoloStar 300 unit/mL (1.5 mL) subcutaneous insulin pen RxNorm: 2350717 INJECT 10 UNITS UNDER THE SKIN DAILY 06/12/2017 08/15/2017 Inactive Keflex 500 mg capsule RxNorm: 454896 1 Capsule(s) PO TID 201606/13/2017 Inactive doxycycline hyclate 100 mg capsule RxNorm: 8032363 1 Capsule(s) PO BID 05/17/2017 05/21/2017 Inactive doxycycline hyclate 100 mg capsule RxNorm: 2182144 1 Capsule(s) PO BID 05/11/2017 05/16/2017 Inactive losartan 25 mg tablet RxNorm: 058777 1 Tablet(s) PO daily 201606/17/2017 Inactive atorvastatin 40 mg tablet RxNorm: 504229 1 Tablet(s) PO daily 03/01/2017 08/23/2017 Inactive clopidogrel 75 mg tablet RxNorm: 792119 1 Tablet(s) PO daily 08/23/2017 Inactive Flonase Allergy Relief 50 mcg/actuation nasal spray, suspension RxNorm: 7695453 2 [place] NASAL daily 02/16/20172016 Inactive Augmentin 875 mg-125 mg tablet RxNorm: 983688 1 Tablet(s) PO BID 02/16/2017 02/22/2017 Inactive GET PROBIOTIC TO TAKE WHILE ON ABX Tamiflu 75 mg capsule RxNorm: 439350 1 Capsule(s) PO BID 201602/20/2017 Inactive ceftriaxone 500 mg solution for injection RxNorm: 9060457 1 Milliliter(s) Inj 02/16/2017 02/16/2017 Inactive Kenalog 40 mg/mL suspension for injection RxNorm: 3901237 1 Milliliter(s) Inj 02/16/2017 02/16/2017 Inactive Toujeo SoloStar 300 unit/mL (1.5 mL) subcutaneous insulin pen RxNorm: 9140029 25 Unit(s) SQ QAM 02/12/2017 06/10/2017 Inactive Toujeo SoloStar 300 unit/mL (1.5 mL) subcutaneous insulin pen RxNorm: 4875197 10 Unit(s) SQ QAM 02/05/2017 02/11/2017 Inactive lisinopril 10 mg tablet RxNorm: 447234 1 Tablet(s) PO daily 02/28/2017 Inactive atorvastatin 40 mg tablet RxNorm: 334550 1 Tablet(s) PO daily 02/01/2017 02/28/2017 Inactive doxycycline hyclate 100 mg capsule RxNorm: 9715262 1 Capsule(s) PO BID 02/01/2017 02/10/2017 Inactive clonazepam 1 mg tablet RxNorm: 631790 1 Tablet(s) PO Q8 as needed 10/09/2016 01/05/2017 Inactive ceftriaxone 1 gram solution for injection RxNorm: 4734722 Inj 10/06/2016 10/06/2016 Inactive cyclobenzaprine 10 mg tablet RxNorm: 024898 1/2-1 Tablet(s) PO TID PRN 07/18/2016 01/28/2017 Inactive clonazepam 1 mg tablet RxNorm: 803560 1 Tablet(s) PO Q8 as needed 05/31/2016 05/29/2016 Inactive clonazepam 1 mg tablet RxNorm: 694094 1 Tablet(s) PO Q8 as needed 05/31/2016 08/28/2016 Inactive Alyson SigalaoStar 300 unit/mL (1.5 mL) subcutaneous insulin pen RxNorm: 9023606 10 Unit(s) SQ daily 05/23/2016 01/28/2017 Inactive Crestor 10 mg tablet RxNorm: 832723 1 Tablet(s) PO QHS 201501/28/2017 Inactive Crestor 10 mg tablet RxNorm: 820792 1 Tablet(s) PO QHS 201505/18/2016 Inactive clonazepam 1 mg tablet RxNorm: 161038 1 Tablet(s) PO Q8 as needed 04/25/2016 05/30/2016 Inactive prednisone 20 mg tablet RxNorm: 141157 3 Tablet(s) PO daily 06/201602/10/2016 Inactive prednisone 20 mg tablet RxNorm: 114423 3 Tablet(s) PO daily 06/201605/14/2016 Inactive Kenalog 40 mg/mL suspension for injection RxNorm: 4957081 Milliliter(s) Inj 01/20/2016 01/20/2016 Inactive aspirin 81 mg tablet,delayed release RxNorm: 667729 1 Tablet(s) PO daily No Start Date Active Brilinta 90 mg tablet RxNorm: 0092319 1 Tablet(s) PO BID No Start Date Active Coreg 6.25 mg tablet RxNorm: 583781 1 Tablet(s) PO BID No Start Date Active acetaminophen 500 mg tablet RxNorm: 007716 1-2 Tablet(s) PO as needed No Start Date Active clopidogrel 75 mg tablet RxNorm: 520689 1 Tablet(s) PO daily No Start Date 02/28/2017 Inactive Novolog Flexpen U-100 Insulin aspart 100 unit/mL subcutaneous RxNorm: 7451013 5 units with breakfast lunch and 10 supper Unit(s) SQ No Start Date 06/17/2018 Inactive clonazepam 1 mg tablet RxNorm: 509543 1 Tablet(s) PO QHS No Start Date 04/24/2016 Inactive acyclovir 400 mg tablet RxNorm: 346836 2 Tablet(s) PO 5x daily No Start Date 02/28/2017 Inactive Lyrica 50 mg capsule RxNorm: 597108 Capsule(s) PO BID No Start Date 06/09/2018 Inactive Vraylar 3 mg capsule RxNorm: 8530072 1 Capsule(s) PO daily No Start Date 03/12/2018 Inactive Medication Administered Medication Codes Instructions Start Date Status Kenalog 40 mg/mL suspension for injection RxNorm: 2263997 Milliliter 09/11/2018 Active Kenalog 40 mg/mL suspension for injection RxNorm: 0682877 Milliliter 06/28/2018 No longer Active ketorolac 30 mg/mL injection solution RxNorm: 964279 2Milliliter 05/02/2018 No longer Active ceftriaxone 500 mg solution for injection RxNorm: 4633480 1Milliliter 02/16/2017 No longer Active Kenalog 40 mg/mL suspension for injection RxNorm: 8864317 1Milliliter 02/16/2017 No longer Active ceftriaxone 1 gram solution for injection RxNorm: 0349602 10/06/2016 No longer Active Kenalog 40 mg/mL suspension for injection RxNorm: 5459175 Milliliter 01/20/2016 No longer Active Immunizations Vaccine Codes Date Status Influenza CVX: 141 07/22/2018 completed Influenza CVX: 141 08/16/2017 completed Assessments Condition Codes Effective Dates Acute recurrent maxillary sinusitis ICD-10: J01.01 ICD-9: 461.0 09/11/2018 Cough ICD-10: R05 ICD-9: 786.2 09/09/2018 Type 2 diabetes mellitus with hyperglycemia ICD-10: [...] allergic rhinitis ICD-10: J30.89 ICD-9: 477.8 06/28/2018 Acute laryngopharyngitis ICD-10: J06.0 ICD-9: 465.0 06/28/2018 Diarrhea, unspecified ICD-10: R19.7 ICD-9: 787.91 [...] Reason For Visit Effective Dates Notes cough 09/09/2018 diabetes mellitus 07/22/2018 insomnia 07/16/2018 [...] GRP Triglyceride TNP:Duplicate Order 2017 LIPID GRP HDL CHOLESTEROL TNP:Duplicate Order 2017 LIPID GRP Chol/HDL Ratio TNP:Duplicate Order 2017 LIPID GRP LDL Cholesterol TNP:Duplicate Order 2017 A1C HPLC 0057291 Hgb A1c 42476-2 TNP:Duplicate Order 2017 C Diff An [id number] GDH TNP:Lab Request 06/22/2018 C Diff An [id number] Toxin A/B TNP:Lab Request 06/22/2018 C Diff An [id number] C Diff Analyzer TNP:Lab Request 2017 C Diff An [id number] IC OK? TNP:Lab Request 06/22/2018 CBC 1206799 WBC 6.4 10e9/L 05/02/2018 CBC 3302042 RBC 5.60 10e12/L 05/02/2018 CBC 3262226 HEMOGLOBIN 17.0 g/dL 05/02/2018 CBC 1320397 HEMATOCRIT 48.0 % 05/02/2018 CBC 2087249 MCV 85.7 fL 05/02/2018 CBC 1357595 MCH 30.4 pg 05/02/2018 CBC 2015245 MCHC 35.4 g/dL 05/02/2018 CBC 6146921 PLATELET COUNT 166 10e9/L 05/02/2018 CBC 4469564 Mean Plt Volume 11.6 fL 05/02/2018 CBC 0938843 Neut Auto 48.6 % 05/02/2018 CBC 2345813 Lymph Auto 41.7 % 05/02/2018 CBC 9521900 [place] Auto 8.1 % 05/02/2018 CBC 2516192 RDW 13.1 % 05/02/2018 CBC 2425292 Eos Auto 1.1 % 05/02/2018 CBC 7945250 Baso Auto 0.5 % 05/02/2018 CBC 7055240 Neutrophil Abs 3.11 10e9/L 05/02/2018 CBC 5163617 Lymphocyte Abs 2.67 10e9/L 05/02/2018 CBC 7130473 Monocyte Abs 0.52 10e9/L 05/02/2018 CBC 5061362 Eosinophil Abs 0.07 10e9/L 05/02/2018 CBC 1543910 RDW-SD 40.0 fL 05/02/2018 CBC 6668999 Basophil Abs 0.03 10e9/L 05/02/2018 CHEM 14 4019128 AST 17 U/L 05/02/2018 CHEM 14 5641053 ALT 17 U/L 05/02/2018 CHEM 14 1093018 BUN 17 mg/dL 05/02/2018 CHEM 14 7033974 ALBUMIN 4.0 g/dL 05/02/2018 CHEM 14 7715167 CHLORIDE 97 mmol/L 05/02/2018 CHEM 14 1818147 Bili Total 0.9 mg/dL 05/02/2018 CHEM 14 0367079 ALK PHOS 67 U/L 05/02/2018 CHEM 14 5043120 SODIUM 135 mmol/L 05/02/2018 CHEM 14 1603541 CREATININE 1.18 mg/dL 05/02/2018 CHEM 14 8484989 CALCIUM 9.4 mg/dL 05/02/2018 CHEM 14 6866726 POTASSIUM 4.4 mmol/L 05/02/2018 CHEM 14 9549239 TOTAL PROTEIN 6.9 g/dL 05/02/2018 CHEM 14 7688823 GLUCOSE 316 mg/dL 05/02/2018 CHEM 14 4908497 Bicarbonate 29 mmol/L 05/02/2018 CHEM 14 9858741 AGAP 9 mmol/L 05/02/2018 MEAN GLUC 5072566 Calc Mean Gluc 283 mg/dL 05/02/2018 A1C HPLC 8020587 Hgb A1c 68101-8 11.5 % 05/02/2018 GFR CALC 3993112 GFR Non Afr Amr >60 mL/min 05/02/2018 GFR CALC 8213905 GFR Afr Amr >60 mL/min 05/02/2018 JI Gold 4967950 JIC Gold Complete 02/28/2018 GFR CALC 6889523 GFR Non Afr Amr >60 mL/min 02/28/2018 GFR CALC 3394970 GFR Afr Amr >60 mL/min 02/28/2018 UA W/CII 7830051 UA Urine Appear Normal 02/28/2018 UA W/CII 6176464 UA Protein 1+ 02/28/2018 UA W/CII 6013839 UA Hemoglobin Negative 02/28/2018 UA W/CII 3316160 UA Glucose 4+ 02/28/2018 UA W/CII 7606543 UA Ketones Trace 02/28/2018 UA W/CII 1038081 UA pH 5.5 02/28/2018 UA W/CII 3808846 U Spec [address] 1.015 02/28/2018 UA W/CII 5579114 UA Bilirubin Negative 02/28/2018 UA W/CII 0337963 UA Nitrite NEG 02/28/2018 UA W/CII 8650500 UA Leuk Esteras Negative 02/28/2018 MICR 5306923 UA WBC/hpf 1 02/28/2018 MICR 9638873 UA RBC hpf 2 02/28/2018 MICR 5665794 UA WBC auto 3.8 /uL 02/28/2018 MICR 8045838 UA RBC auto 12.2 /uL 02/28/2018 MICR 8913407 UA SQ EPI auto 2.3 /uL 02/28/2018 MICR 0529923 UA H Cast auto 0.10 /uL 02/28/2018 CBC 9801135 WBC 6.4 10e9/L 02/28/2018 CBC 3071394 RBC 5.51 10e12/L 02/28/2018 CBC 1185667 HEMOGLOBIN 16.7 g/dL 02/28/2018 CBC 1453810 HEMATOCRIT 46.9 % 02/28/2018 CBC 7349933 MCV 85.1 fL 02/28/2018 CBC 1160891 MCH 30.3 pg 02/28/2018 CBC 4536619 MCHC 35.6 g/dL 02/28/2018 CBC 0450182 PLATELET COUNT 173 10e9/L 02/28/2018 CBC 8208181 Mean Plt Volume 11.6 fL 02/28/2018 CBC 0610583 Neut Auto 51.8 % 02/28/2018 CBC 7210324 Lymph Auto 39.9 % 02/28/2018 CBC 3782470 [place] Auto 7.3 % 02/28/2018 CBC 2993545 Eos Auto 0.8 % 02/28/2018 CBC 6723364 RDW 13.3 % 02/28/2018 CBC 8233802 Baso Auto 0.2 % 02/28/2018 CBC 5194980 Neutrophil Abs 3.32 10e9/L 02/28/2018 CBC 3164368 Lymphocyte Abs 2.55 10e9/L 02/28/2018 CBC 5652818 Monocyte Abs 0.47 10e9/L 02/28/2018 CBC 8477945 Eosinophil Abs 0.05 10e9/L 02/28/2018 CBC 8863357 Basophil Abs 0.01 10e9/L 02/28/2018 CBC 6640111 RDW-SD 40.8 fL 02/28/2018 CHEM 14 0047610 AST 17 U/L 02/28/2018 CHEM 14 1135771 ALT 17 U/L 02/28/2018 CHEM 14 8390614 BUN 20 mg/dL 02/28/2018 CHEM 14 6225252 ALBUMIN 4.1 g/dL 02/28/2018 CHEM 14 9879796 CHLORIDE 97 mmol/L 02/28/2018 CHEM 14 5380286 Bili Total 1.3 mg/dL 02/28/2018 CHEM 14 9427227 ALK PHOS 78 U/L 02/28/2018 CHEM 14 4247866 SODIUM 135 mmol/L 02/28/2018 CHEM 14 6945009 CREATININE 1.09 mg/dL 02/28/2018 CHEM 14 7017544 CALCIUM 9.6 mg/dL 02/28/2018 CHEM 14 9965993 POTASSIUM 3.8 mmol/L 02/28/2018 CHEM 14 2544457 TOTAL PROTEIN 7.3 g/dL 02/28/2018 CHEM 14 7119964 GLUCOSE 349 mg/dL 02/28/2018 CHEM 14 7269689 Bicarbonate 29 mmol/L 02/28/2018 CHEM 14 7684983 AGAP 9 mmol/L 02/28/2018 Boulevard Spotted Fever Igg/Igm 076784 FEI MT SPOTTED FEVER IGM EIA . 09/05/2017 [place] Spotted Fever Igg/Igm 956017 RMSF, IGM 0.17 index 09/05/2017 [place] Spotted Fever Igg/Igm 790815 FEI MT SPOTTED FEVER IGG EIA FLEX . 09/05/2017 [place] Spotted Fever Igg/Igm 934076 RMSF, IGG SCREEN-FLEX Positive 09/05/2017 Fei Mtn Spot'D Fev Igg 843892 RMSF, IGG -TITER IFA <1:64 11/2016 Ehrlichia Chaffeensis Antibody Igm 277521 EHRLICHIA CHAFFEENSIS IGM < 1:16 09/03/2017 Ehrlichia Chaffeensis Antibody Igg 706141 EHRLICHIA CHAFFEENSIS IGG <1:64 09/03/2017 Lymes Disease Total Antibodies With Western Blot Reflex B. BURGDORFERI, IGG/IGM 0.223 08/30/2017 Lymes Disease Total Antibodies With Western Blot Reflex C-Reactive Protein Qnt Crqnt CRP 0.00 mg/dl 08/27/2017 Sed Rate Ord21 ESR 8 mm/hr 08/27/2017 Comp Metabolic Btf473 NA 135 mEq/L 08/16/2017 Comp Metabolic Hwt668 K 4.1 mEq/L 08/16/2017 Comp Metabolic Cbs972 CL 98 mEq/L 08/16/2017 Comp Metabolic Wud083 CO2 28.0 mEq/L 08/16/2017 Comp Metabolic Tia433 ANION GAP 13 08/16/2017 Comp Metabolic Qeb870 GLUCOSE 299 mg/dL 08/16/2017 Comp Metabolic Wll257 Creat 0.9 mg/dL 08/16/2017 Comp Metabolic Dtt540 eGFR 90 ml/min/1.73m2 08/16/2017 Comp Metabolic Eyr117 BUN 20 mg/dL 08/16/2017 Comp Metabolic Uyp968 B/C Ratio 21.5 Ratio 08/16/2017 Comp Metabolic Dor720 CALCIUM 9.2 mg/dL 08/16/2017 Comp Metabolic Ztw256 ALK PHOS 84 U/L 08/16/2017 Comp Metabolic Hnn395 AST(SGOT) 19 U/L 08/16/2017 Comp Metabolic Cce129 ALT(SGPT) 24 U/L 08/16/2017 Comp Metabolic Lph093 BILI T 1.1 mg/dL 08/16/2017 Comp Metabolic Hxy045 ALBUMIN 4.2 g/dL 08/16/2017 Comp Metabolic Var428 TPRO 7.2 g/dL 08/16/2017 Comp Metabolic F[address]520 GLOB 3.0 g/dL 08/16/2017 Comp Metabolic Kok659 A/G Ratio 1.4 Ratio 08/16/2017 Comp Metabolic Gva758 Osmo 284 mOsmo 08/16/2017 %Hba1C Qld342 % HbA1c 98467-1 12.5 % 08/16/2017 %Hba1C Fli942 Gluc Ave 312 mg/dL 08/16/2017 Urine Culture Ucult Complete NO Growth Day 2 06/23/2017 Urine Culture Ucult Preliminary NO Growth Day 1 06/23/2017 C RAP A SC [id number] Strep A Negative 06/08/2017 %Hba1C Xup396 % HbA1c 29245-0 9.5 % 05/04/2017 %Hba1C Csm355 Gluc Ave 226 mg/dL 05/04/2017 Tsh Ord6 [...] 89.9 fl 05/04/2017 Cbc With Differential Ord2 [place]% 8.5 % 05/04/2017 Cbc With Differential Ord2 [...] 2.48 K/ul 05/04/2017 Cbc With Differential Ord2 [place] ABS# 0.5 K/ul 05/04/2017 Cbc With Differential Ord2 Eos ABS# 0.1 K/ul 05/04/2017 Cbc With Differential Ord2 Baso ABS# 0.0 K/ul 05/04/2017 Comp Metabolic Qym793 NA 135 mEq/L 05/04/2017 Comp Metabolic Ivn087 K 4.2 mEq/L 05/04/2017 Comp Metabolic Rsi454 CL 99 mEq/L 05/04/2017 Comp Metabolic Igw269 CO2 26.0 mEq/L 05/04/2017 Comp Metabolic Esp470 ANION GAP 14 05/04/2017 Comp Metabolic Qgz949 GLUCOSE 277 mg/dL 05/04/2017 Comp Metabolic Xzj135 Creat 0.9 mg/dL 05/04/2017 Comp Metabolic Tgz479 eGFR 96 ml/min/1.73m2 05/04/2017 Comp Metabolic Vdq654 BUN 23 mg/dL 05/04/2017 Comp Metabolic Acw015 B/C Ratio 26.1 Ratio 05/04/2017 Comp Metabolic Atd542 CALCIUM 8.9 mg/dL 05/04/2017 Comp Metabolic Pqw229 ALK PHOS 81 U/L 05/04/2017 Comp Metabolic Idt922 AST(SGOT) 21 U/L 05/04/2017 Comp Metabolic Nde721 ALT(SGPT) 27 U/L 05/04/2017 Comp Metabolic Lgp941 BILI T 1.2 mg/dL 05/04/2017 Comp Metabolic Hvg707 ALBUMIN 4.0 g/dL 05/04/2017 Comp Metabolic Eiy003 TPRO 6.7 g/dL 05/04/2017 Comp Metabolic Ykk763 GLOB 2.7 g/dL 05/04/2017 Comp Metabolic Wpv609 A/G Ratio 1.5 Ratio 05/04/2017 Comp Metabolic Ppv194 Osmo 284 mOsmo 05/04/2017 C A/B FLU 5403976 Influenza A Scr Negative 02/16/2017 C A/B FLU 6607545 Influenza B Scr Positive 02/16/2017 Cbc With [...] 39.7 % 05/23/2016 Cbc With Differential Ord2 [place]% 8.8 % 05/23/2016 Cbc With Differential Ord2 [...] 2.07 K/ul 05/23/2016 Cbc With Differential Ord2 [place] ABS# 0.5 K/ul 05/23/2016 Cbc With Differential Ord2 Eos ABS# 0.1 K/ul 05/23/2016 Cbc With Differential Ord2 Baso ABS# 0.0 K/ul 05/23/2016 Lipid Ord30 CHOL 397 mg/dL 05/17/2016 Lipid Ord30 HDL 48.0 mg/dl 05/17/2016 Lipid Ord30 TRIG 578 mg/dL 05/17/2016 Lipid Ord30 LDL Unable to calculate Due to elevated triglycerides mg/dL 05/17/2016 Lipid Ord30 C/HDL 8.3 Ratio 05/17/2016 %Hba1C Rvt330 % HbA1c 30457-1 12.4 % 05/16/2016 %Hba1C Gfb719 Gluc Ave 309 mg/dL 05/16/2016 Cbc With [...] 87.4 fl 05/15/2016 Cbc With Differential Ord2 [place]% 7.8 % 05/15/2016 Cbc With Differential Ord2 [...] 2.04 K/ul 05/15/2016 Cbc With Differential Ord2 [place] ABS# 0.5 K/ul 05/15/2016 Cbc With Differential Ord2 Eos ABS# 0.1 K/ul 05/15/2016 Cbc With Differential Ord2 Baso ABS# 0.0 K/ul 05/15/2016 Tsh Ord6 hTSH II 1.70 uIU/mL 05/15/2016 Comp Metabolic Vge402 NA 135 mEq/L 05/15/2016 Comp Metabolic Kio377 K 3.9 mEq/L 05/15/2016 Comp Metabolic Oxm801 CL 96 mEq/L 05/15/2016 Comp Metabolic Lnl473 CO2 27.0 mEq/L 05/15/2016 Comp Metabolic Asb904 ANION GAP 16 05/15/2016 Comp Metabolic Gxq607 GLUCOSE 183 mg/dL 05/15/2016 Comp Metabolic Jqt687 Creat 1.1 mg/dL 05/15/2016 Comp Metabolic Vkx842 eGFR 71 ml/min/1.73m2 05/15/2016 Comp Metabolic Aso460 BUN 17 mg/dL 05/15/2016 Comp Metabolic Mnd024 B/C Ratio 14.9 Ratio 05/15/2016 Comp Metabolic Upl947 CALCIUM 9.6 mg/dL 05/15/2016 Comp Metabolic Bpe683 ALK PHOS 100 U/L 05/15/2016 Comp Metabolic Kyj928 AST(SGOT) 20 U/L 05/15/2016 Comp Metabolic Tzv227 ALT(SGPT) 20 U/L 05/15/2016 Comp Metabolic Hyf396 BILI T 1.3 mg/dL 05/15/2016 Comp Metabolic Yjf468 ALBUMIN 4.6 g/dL 05/15/2016 Comp Metabolic Inp129 TPRO 8.1 g/dL 05/15/2016 Comp Metabolic Ovx265 GLOB 3.5 g/dL 05/15/2016 Comp Metabolic Itq493 A/G Ratio 1.3 Ratio 05/15/2016 Comp Metabolic Qsd044 Osmo 276 mOsmo 05/15/2016 Review of Systems System Result Effective Dates Constitutional recent illness 09/09/2018 Constitutional No anorexia [...] normal 03/13/2018 None Full Exam - General 1995 Ears/Nose/Throat [...] of skin Location: face 05/04/2017 patch left confucianism Full Exam - General 1994 Constitutional general [...] rate 01/20/2016 None Procedures Procedure Codes Date THER/PROPH/DIAG INJ SC/IM CPT-4: 34930 09/11/2018 TRIAMCINOLONE ACET INJ NOS CPT-4: J3301 09/11/2018 IMMUNIZATION ADMIN CPT -4: 64392 07/22/2018 FLU VAC NO PRSV 4 MENA 3 YRS+ CPT-4: 86133 07/22/2018 TRIAMCINOLONE ACET INJ NOS CPT-4: J3301 06/28/2018 KETOROLAC TROMETHAMINE INJ CPT-4: J1885 05/02/2018 FLU VAC NO PRSV 4 MENA 3 YRS+ CPT-4: 68197 08/16/2017 IMMUNIZATION ADMIN CPT -4: 87016 08/16/2017 URINALYSIS NONAUTO W/O SCOPE CPT-4: 68780 06/21/2017 TRIAMCINOLONE ACET INJ NOS CPT-4: J3301 05/04/2017 THER/PROPH/DIAG INJ SC/IM CPT-4: 64153 05/04/2017 TRIAMCINOLONE ACET INJ NOS CPT-4: J3301 02/16/2017 ROCEPHIN, PER 250 MG CPT-4: J0696 02/16/2017 ROCEPHIN, PER 250 MG CPT-4: J0696 10/06/2016 URINALYSIS NONAUTO W/O SCOPE CPT-4: 51896 07/18/2016 TRIAMCINOLONE ACET INJ NOS CPT-4: J3301 01/20/2016 Vital Signs Date Vital 09/09/2018 Blood Pressure 1: 140/80 Code : 8480-6 BMI: 33.0 Code : 87847-4 Heart Rate 1 : 97 bpm Height: 6'2" SpO2: 93% Temperature: 36.8 (C) / 98.2 (F) Weight: 257 lbs 07/22/2018 Blood Pressure 1: 120/78 Code : 8480-6 BMI: 31.6 Code : 83800-6 Heart Rate 1 : 87 bpm Height: 6'2" SpO2: 98% Weight: 246 lbs 07/16/2018 Blood Pressure 1: 132/74 Code : 8480-6 BMI: 31.2 Code : 77011-7 Heart Rate 1 : 90 bpm Height: 6'2" SpO2: 96% Weight: 243 lbs 07/01/2018 Blood Pressure 1: 142/82 Code : 8480-6 BMI: 31.8 Code : 22016-2 Heart Rate 1 : 88 bpm Height: 6'2" SpO2: 98% Weight: 248 lbs 06/28/2018 Blood Pressure 1: 132/76 Code : 8480-6 BMI: 31.8 Code : 82990-0 Heart Rate 1 : 107 bpm Height: 6'2" SpO2: 98% Temperature: 37.9 (C) / 100.3 (F) Weight: 248 lbs 06/18/2018 Blood Pressure 1: 138/82 Code : 8480-6 BMI: 31.8 Code : 25469-9 Heart Rate 1 : 82 bpm Height: 6'2" SpO2: 97% Weight: 248 lbs 06/04/2018 Blood Pressure 1: 128/84 Code : 8480-6 BMI: 33.9 Code : 52522-2 Heart Rate 1 : 86 bpm Height: 6'2" SpO2: 95% Weight: 264 lbs 05/13/2018 Blood Pressure 1: 130/80 Code : 8480-6 BMI: 31.1 Code : 40043-5 Heart Rate 1 : 100 bpm Height: 6'2" SpO2: 94% Weight: 242 lbs 05/02/2018 Blood Pressure 1: 134/84 Code : 8480-6 BMI: 31.2 Code : 01699-9 Heart Rate 1 : 93 bpm Height: 6'2" SpO2: 98% Weight: 243 lbs 04/29/2018 Blood Pressure 1: 142/88 Code : 8480-6 BMI: 31.6 Code : 86822-1 Heart Rate 1 : 96 bpm Height: 6'2" SpO2: 96% Temperature: 36.7 (C) / 98.1 (F) Weight: 246 lbs 03/13/2018 Blood Pressure 1: 120/76 Code : 8480-6 BMI: 30.9 Code : 47434-7 Heart Rate 1 : 112 bpm Height: 6'2" SpO2: 97% Weight: 241 lbs 03/07/2018 Blood Pressure 1: 108/78 Code : 8480-6 BMI: 30.0 Code : 99462-1 Heart Rate 1 : 87 bpm Height: 6'2" SpO2: 98% Weight: 234 lbs 02/28/2018 Blood Pressure 1: 106/74 Code : 8480-6 BMI: 30.0 Code : 84483-1 Heart Rate 1 : 101 bpm Height: 6'2" SpO2: 98% Temperature: 36.4 (C) / 97.5 (F) Weight: 234 lbs 02/13/2018 Blood Pressure 1: 110/78 Code : 8480-6 BMI: 30.0 Code : 95056-8 Heart Rate 1 : 106 bpm Height: 6'2" SpO2: 98% Weight: 234 lbs 01/29/2018 Blood Pressure 1: 106/68 Code : 8480-6 BMI: 30.0 Code : 48103-0 Heart Rate 1 : 108 bpm Height: 6'2" SpO2: 98% Weight: 234 lbs 08/27/2017 Blood Pressure 1: 134/76 Code : 8480-6 Heart Rate 1: 98 bpm Height: SpO2: 97% Weight: 08/16/2017 Blood Pressure 1: 128/80 Code : 8480-6 BMI: 32.0 Code : 28278-7 Heart Rate 1 : 94 bpm Height: [...] Code : 8480-6 BMI: 31.8 Code : 24181-7 Heart Rate 1 : 102 bpm Height: [...] Code : 8480-6 BMI: 31.8 Code : 36028-9 Heart Rate 1 : 85 bpm Height: 6'2" SpO2: 96% Temperature: 36.6 (C) / 97.9 (F) Weight: 248 lbs 02/12/2017 Blood Pressure 1: 126/76 Code : 8480-6 BMI: 31.8 Code : 89866-9 Heart Rate 1 : 106 bpm Height: 6'2" SpO2: 91% Weight: 248 lbs 02/05/2017 Blood Pressure 1: 146/86 Code : 8480-6 BMI: 31.9 Code : 39564-7 Heart Rate 1 : 98 bpm Height: 6'2" SpO2: 87% Temperature: 36.7 (C) / 98.0 (F) Weight: 248 lbs 8 oz 01/29/2017 Blood Pressure 1: 132/84 Code : 8480-6 BMI: 31.8 Code : 46697-2 Heart Rate 1 : 83 bpm Height: 6'2" SpO2: 97% Weight: 248 lbs 10/13/2016 Blood Pressure 1: 128/72 Code : 8480-6 Heart Rate 1: 86 bpm SpO2: 94% 10/09/2016 Blood Pressure 1: 128/68 Code : 8480-6 Heart Rate 1: 136 bpm SpO2: 94% Temperature: 36.8 (C) / 98.2 (F) 10/06/2016 Blood Pressure 1: 140/80 Code : 8480-6 BMI: 32.1 Code : 67105-8 Heart Rate 1 : 94 bpm Height: 6'2" SpO2: 95% Weight: 250 lbs 07/18/2016 Blood Pressure 1: 128/86 Code : 8480-6 BMI: 32.1 Code : 05547-3 Heart Rate 1 : 89 bpm Height: 6'2" SpO2: 96% Weight: 250 lbs 06/22/2016 Blood Pressure 1: 118/70 Code : 8480-6 BMI: 32.1 Code : 90728-2 Heart Rate 1 : 70 bpm Height: 6'2" SpO2: 97% Weight: 250 lbs 05/23/2016 Blood Pressure 1: 128/80 Code : 8480-6 BMI: 32.1 Code : 15009-0 Heart Rate 1 : 76 bpm Height: 6'2" SpO2: 98% Weight: 250 lbs 05/15/2016 Blood Pressure 1: 110/90 Code : 8480-6 BMI: 31.3 Code : 36728-5 Heart Rate 1 : 111 bpm Height: 6'2" SpO2: 97% Temperature: 36.6 (C) / 97.8 (F) Weight: 244 lbs 01/20/2016 Blood Pressure 1: 128/76 Code : 8480-6 BMI: 33.0 Code : 08741-2 Heart Rate 1 : 103 bpm Height: 6'2" SpO2: 95% Weight: 257 lbs Functional Status No Functional Status data History of Present Illness Symptom Name Status Result Effective Date Notes cough Location in the throat 09/09/2018 None [...] data Encounters Encounter Performer Location Codes Date ( EST. PATIENT, LEVEL III Diagnosis: Acute recurrent maxillary sinusitis[ICD10: J01.01] Diagnosis: Cough[ICD10: R05] Diagnosis: Type 2 diabetes mellitus with hyperglycemia[ICD10: E11.65] [facility] CPT-[facility]: 04066 09/09/2018 ([id number]) 48309 EST. PATIENT, LEVEL IV Diagnosis: Essential (primary) hypertension[ICD10: I10] Diagnosis: Mixed hyperlipidemia[ICD10: E78.2] Diagnosis: Bipolar disorder, current episode depressed, moderate[ICD10: F31.32] Diagnosis: Type 2 diabetes mellitus with other specified complication[ICD10: E11.69] [facility] CPT-4: 37423 2017 ([id number]) 76127 EST. PATIENT, LEVEL III Diagnosis: Insomnia due to medical condition[ICD10: G47.01] [facility] CPT-4: 19056 07/16/2018 ([id number]) Miscellaneous no charge Diagnosis: Cough[ICD10: R05] [facility] CPT-4: 05617 07/01/2018 [id number] EST. PATIENT, LEVEL III Diagnosis: Cough[ICD10: R05] Diagnosis: Acute laryngopharyngitis[ICD10: J06.0] Diagnosis: Other allergic rhinitis[ICD10: J30.89] Madeline Ha MD, [facility] CPT-4: 39306 06/28/2018 ([id number]) 84615 EST. PATIENT, LEVEL IV Diagnosis: Type 2 diabetes mellitus with hyperglycemia[ICD10: E11.65] Diagnosis: Essential (primary) hypertension[ICD10: I10] Melida Ha MD, [facility] CPT-4: 86042 06/18/2018 ([id number]) 26541 EST. PATIENT, LEVEL IV Diagnosis: Type 2 diabetes mellitus with hyperglycemia[ICD10: E11.65] Diagnosis: Essential (primary) hypertension[ICD10: I10] Diagnosis: Localized edema[ICD10: R60.0] Melida Ha MD, [facility] CPT- 4: 59807 06/04/2018 ([id number]) 03079 EST. PATIENT, LEVEL III Diagnosis: Type 2 diabetes mellitus with hyperglycemia[ICD10: E11.65] Diagnosis: Myalgia[ICD10: M79.1] Diagnosis: Pain in right hip[ICD10: M25.551] Diagnosis: Pain in left hip[ICD10: M25.552] Marcela Ha MD, [facility] CPT-4: 51038 05/13/2018 ([id number]) 01144 EST. PATIENT, LEVEL III Diagnosis: Myalgia[ICD10: M79.1] Diagnosis: Pain in right hip[ICD10: M25.551] Diagnosis: Pain in left hip[ICD10: M25.552] Marcela Ha MD, [facility] CPT-4: 73079 05/02/2018 ([id number]) 98810 EST. PATIENT, LEVEL IV Diagnosis: Essential (primary) hypertension[ICD10: I10] Diagnosis: Type 2 diabetes mellitus with hyperglycemia[ICD10: E11.65] Diagnosis: Major depressive disorder, single episode, moderate[ICD10: F32.1] Diagnosis: Myalgia[ICD10: M79.1] Marcela Ha MD, [facility] CPT-4: 33341 04/29/2018 ([id number]) 84103 EST. PATIENT, LEVEL IV Diagnosis: Type 2 diabetes mellitus with hyperglycemia[ICD10: E11.65] Diagnosis: Essential (primary) hypertension[ICD10: I10] Diagnosis: Major depressive disorder, single episode, moderate[ICD10: F32.1] Melida Ha MD, [facility] CPT-4: 34107 03/13/2018 ([id number]) 49924 EST. PATIENT, LEVEL III Diagnosis: Type 2 diabetes mellitus with hyperglycemia[ICD10: E11.65] Diagnosis: Bipolar disorder, current episode depressed, moderate[ICD10: F31.32] Diagnosis: Orthostatic hypotension[ICD10: I95.1] Marcela Ha MD, [facility] CPT-4: 18072 03/07/2018 ([id number]) 87303 EST. PATIENT, LEVEL IV Diagnosis: Type 2 diabetes mellitus with hyperglycemia[ICD10: E11.65] Diagnosis: Major depressive disorder, single episode, moderate[ICD10: F32.1] Diagnosis: Orthostatic hypotension[ICD10: I95.1] Diagnosis: Other fatigue[ICD10: R53.83] Marcela Ha MD, [facility] CPT-4: 17319 02/28/2018 [id number] EST. PATIENT, LEVEL IV Diagnosis: Other fatigue[ICD10: R53.83] Diagnosis: Other malaise[ICD10: R53.81] Diagnosis: Gastro-esophageal reflux disease without esophagitis[ICD10: K21.9] Madeline Ha MD, [facility] CPT-4: 56361 02/13/2018 ([id number]) 19146 EST. PATIENT, LEVEL IV Diagnosis: Type 2 diabetes mellitus with foot ulcer[ICD10: E11.621] Diagnosis: Essential (primary) hypertension[ICD10: I10] Diagnosis: Gastro-esophageal reflux disease without esophagitis[ICD10: K21.9] Marcela Ha MD, [facility] CPT-4: 50908 01/29/2018 17109 EST. PATIENT, LEVEL III Diagnosis: Other malaise[ICD10: R53.81] Diagnosis: Other fatigue[ICD10: R53.83] Diagnosis: Pain in right shoulder[ICD10: M25.511] Diagnosis: Pain in left shoulder[ICD10: M25.512] Madeline Ha MD, [facility] CPT-4: 58970 08/27/2017 ([id number]) 96961 EST. PATIENT, LEVEL IV Diagnosis: Essential (primary) hypertension[ICD10: I10] Diagnosis: Type 2 diabetes mellitus with hyperglycemia[ICD10: E11.65] Diagnosis: VACCIN FOR INFLUENZA[ICD10: Z23] Melida Ha MD, [facility] CPT-4: 86430 08/16/2017 00662 EST. PATIENT, LEVEL III Diagnosis: Zoster without complications[ICD10: B02.9] Madeline Ha MD, [facility] CPT-4: 45728 07/26/2017 ([id number]) 69937 EST. PATIENT, LEVEL III Diagnosis: Cellulitis of right lower limb[ICD10: L03.115] Marcela Ha MD, [facility] CPT-4: 45720 07/03/2017 59745 EST. PATIENT, LEVEL II Diagnosis: Laceration without foreign body of left forearm, initial encounter[ ICD10: S51.812A] Marcela Ha MD, [facility] CPT-4: 93688 06/29/2017 ([id number]) 60640 EST. PATIENT, LEVEL III Diagnosis: Cellulitis of right lower limb[ICD10: L03.115] Diagnosis: Type 2 diabetes mellitus with foot ulcer[ICD10: E11.621] Marcela Ha MD , [facility] CPT-4: 38190 06/18/2017 ([id number]) 21669 EST. PATIENT, LEVEL IV Diagnosis: Cellulitis of right lower limb[ICD10: L03.115] Diagnosis: Acute laryngopharyngitis[ICD10: J06.0] Diagnosis: Gastro-esophageal reflux disease without esophagitis[ICD10: K21.9] Marcela Ha MD, [facility] CPT-4: 69893 06/07/2017 ([id number]) 54757 EST. PATIENT, LEVEL III Diagnosis: Type 2 diabetes mellitus with hyperglycemia[ICD10: E11.65] Diagnosis: Insect bite (nonvenomous) of abdominal wall, initial encounter[ICD10 : S30.861A] Marcela Ha MD, [facility] CPT-4: 53010 05/17/2017 ([id number]) 21047 EST. PATIENT, LEVEL III Diagnosis: Allergic contact dermatitis due to plants, except food[ICD10: L23.7] Melida Ha MD [facility] CPT-4: 79303 05/04/2017 ([id number]) 52084 EST. PATIENT, LEVEL III Diagnosis: Essential (primary) hypertension[ICD10: I10] Marcela Ha MD [facility] CPT-4: 89094 03/15/2017 ([id number]) 93184 EST. PATIENT, LEVEL III Diagnosis: Cough[ICD10: R05] Diagnosis: Essential (primary) hypertension[ICD10: I10] Marcela Ha MD [facility] CPT-4: 38471 03/01/2017 ([id number]) 56555 EST. PATIENT, LEVEL III Diagnosis: Cough[ICD10: R05] Diagnosis: Nasal congestion[ICD10: R09.81] Diagnosis: Acute recurrent maxillary sinusitis[ICD10: J01.01] Marcela Ha MD [facility] CPT-4: 83919 02/16/2017 ([id number]) 50396 EST. PATIENT, LEVEL III Diagnosis: Type 2 diabetes mellitus with hyperglycemia[ICD10: E11.65] Marcela Ha MD [facility] CPT-4: 04706 02/12/2017 ([id number]) 06714 EST. PATIENT, LEVEL IV Diagnosis: Type 2 diabetes mellitus with hyperglycemia[ICD10: E11.65] Diagnosis: Muscle weakness (generalized)[ICD10: M62.81] Diagnosis: Disorientation, unspecified[ICD10: R41.0] Marcela Ha MD [facility] CPT-4: 95760 02/05/2017 ([id number]) Patient admitted to the hospital from clinic (NO CHARGE) Diagnosis: Type 2 diabetes mellitus with hyperglycemia[ICD10: E11.65] Diagnosis: Disorientation, unspecified[ICD10: R41.0] Diagnosis: Muscle weakness (generalized)[ICD10: M62.81] Marcela Ha MD, [facility] CPT-4: 95522S 01/29/2017 ([id number]) Miscellaneous no charge Diagnosis: Cellulitis of right lower limb[ICD10: L03.115] Marcela Ha MD, [facility] CPT-4: 59628 10/13/2016 ([id number]) Miscellaneous no charge Diagnosis: Type 2 diabetes mellitus with foot ulcer[ICD10: E11.621] Diagnosis: Pain in right foot[ICD10: M79.671] Marcela Ha MD [facility] CPT-4: 69426 10/09/2016 [id number] EST. PATIENT, LEVEL II Diagnosis: Cellulitis of right lower limb[ICD10: L03.115] Marcela Ha MD [facility] CPT-4: 81005 10/06/2016 ([id number]) 86426 EST. PATIENT, LEVEL IV Diagnosis: Low back pain[ICD10: M54.5] Diagnosis: Other deformities of toe(s) (acquired), left foot[ICD10: M20.5X2] Diagnosis: Type 2 diabetes mellitus with foot ulcer[ICD10: E11.621] Marcela Ha MD [facility] CPT-4: 63675 07/18/2016 ([id number]) 29674 EST. PATIENT, LEVEL III Diagnosis: Type 2 diabetes mellitus with hyperglycemia[ICD10: E11.65] Marcela Ha MD [facility] CPT-4: 98398 06/22/2016 ([id number]) 81410 EST. PATIENT, LEVEL IV Diagnosis: Type 2 diabetes mellitus with hyperglycemia[ICD10: E11.65] Diagnosis: Mixed hyperlipidemia[ICD10: E78.2] Diagnosis: Other hemoglobinopathies[ICD10: D58.2] Marcela Ha MD, [facility] CPT-4: 09901 05/23/2016 ([id number]) 61208 EST. PATIENT, LEVEL IV Diagnosis: Type 2 diabetes mellitus with other specified complication[ICD10: E11.69] Diagnosis: Dehydration[ICD10: E86.0] Marcela Ha MD, [facility] CPT-4: 24086 05/15/2016 ([id number]) OFFICE VISIT, NEW - LEVEL 3 Diagnosis: Allergic contact dermatitis due to plants, except food[ICD10: L23.7] Madeline Ha MD, [facility] CPT-4: 42489 01/20/2016 Plan of Care Planned Activity Notes Codes Status Date Patient Education: Patient Medication Summary Completed 09/11/2018 Visit Plan: Sinusitis - Pt has acute infection - pain in face, maxillary region, Pt informed to use decongestant, RX given to patient, sinus rinses also recommended. Call if symptoms do not show improvement. DM- check Hgb A1C 09/09/2018 Appointment: Marcela Oshea WPtel: [phone] (15 min) Moderate 09/09/2018 Patient Education: Patient Medication Summary Completed 09/09/2018 Patient Education: Patient Medication Summary Completed 09/06/2018 Patient Education: Cholesterol Management Completed 09/06/2018 Care Plan: Comp Metabolic Pending 09/06/2018 Care Plan: Cbc With Differential Pending 09/06/2018 Care Plan: %Hba1C LOINC : 16894-2 Pending 09/06/2018 Care Plan: Tsh Pending 09/06/2018 Care Plan: Lipid Pending 09/06/2018 Appointment: aMrcela Oshea WPtel: [phone] (15 min) Moderate 08/26/2018 Appointment: Marcela Oshea WPtel: [phone] (15 min) Moderate 08/23/2018 Visit Plan: Hypertension [...] in clinic. 07/22/2018 Appointment: [phone] (15 min) Moderate 07/22/2018 Patient Education: Patient [...] insomnia. 07/16/2018 Appointment: Marcela Oshea WPtel: [phone] [phone] (30 min) Complex 07/16/2018 Patient Education: Patient Medication Summary Completed 07/16/2018 Visit Plan: cough - improved - notify clinic if symptoms do not completely resolve, or with any questions or concerns. 07/01/2018 Appointment: [phone] [place] (15 min) Moderate 07/01/2018 Patient Education: [...] allergy spray. 06/28/2018 Appointment: Madeline Kennedy WPtel: [phone] [facility] (15 min) Moderate 06/28/2018 Patient Education: Patient Medication Summary Completed 06/28/2018 Patient Education: Patient Medication Summary Completed 06/21/2018 Care Plan: Annabel RICKS [place] Pending 06/21/2018 Visit Plan: Diabetes Mellitus - [...] at home. 06/18/2018 Appointment: [facility] Ha [phone] [place] (15 min) Moderate 06/18/2018 Patient Education: Patient [...] improves. 06/04/2018 Appointment: Melida Ha WPtel: [phone] [facility] (15 min) Moderate 06/04/2018 Patient Education: [...] allow for greater blood glucose control. Joint djyh-efxbgqsg-hbhavbq- symptoms have improved -stop meloxicam due to upset stomach-call if symptoms return 05/13/2018 Appointment: Marcela Oshea WPtel: [phone] (30 min) Complex 05/13/2018 Patient Education: Patient Medication Summary Completed 05/13/2018 Visit Plan: Bilateral hip xght-zisqjzqt-zxvbpih IM injection administered today for c/o continued myalgia/arthralgia. Patient to start taking Meloxicam 15mg PO daily. Advised to return to clinic if symptoms do not improve. 05/02/2018 Appointment: Marcela Oshea WPtel: [phone] (30 min) Complex 05/02/2018 Patient Education: Patient [...] readings at home. Diabetes Mellitus -check labs Pujywqoz-lpivswg-bimm bite-rx for doxycycline-follow up in 2 weeks 04/29/2018 Appointment: Marcela Oshea WPtel: [phone] [phone] (15 min) Moderate 04/29/2018 Patient Education: Patient Medication Summary Completed 04/29/2018 Appointment: Melida Ha WPtel: [phone] [facility] (15 min) Moderate 04/15/2018 Appointment: Marcela Oshea WPtel: [phone] (30 min) Complex 03/21/2018 Visit Plan: Hypertension [...] on cymbalta 03/13/2018 Appointment: Melida Ha WPtel: [phone] [facility] [place] (30 min) Complex 03/13/2018 Patient Education: Patient Medication Summary Completed 03/13/2018 Visit Plan: DM-continue same medications-monitor blood sugars routinely as directed -rx for new glucometer and test strips provided Bipolar-currently depressed-patient start on vraylar-follow up in 2 weeks, sooner if needed. Patient and verbalied understanding of plan. Hypotension- stay off losartan 03/07/2018 Appointment: Marcela Oshea WPtel: [phone] (30 min) Complex 03/07/2018 Patient Education: Patient Medication Summary Completed 03/07/2018 Appointment: Melida Ha WPtel: [phone] [facility] (15 min) Moderate 03/04/2018 Visit Plan: [...] this patient. 02/28/2018 Appointment: Marcela Oshea WPtel: [phone] (30 min) Complex 02/28/2018 Patient Education: Patient [...] not improving. 02/13/2018 Appointment: Mad[facility] Kennedy [facility]Ptel: [phone] [facility] (15 min) Moderate 02/13/2018 Patient Education: Patient Medication Summary Completed 02/13/2018 Referral: Sun Glynn Patient informed. Referral info faxed. Completed Visit Plan: DM-weight loss-not checking blood sugars- patient sent for labs today HTN-low ipsmb-spsghca-fvesz labs Callus of foot and fissue of heel-refer to Dr Glynn for evaluation Esophageal Reflux - the patient has been counseled against excessive intake of caffeine, spicy foods, peppermint , and cinnamon - all of which can exacerbate esophageal reflux. The patient is to take medications as prescribed and call the office if the symptoms are not improving. 01/29/2018 Appointment: Marcela Oshea WPtel: [phone] (30 min) Complex 01/29/2018 Patient Education: Patient Medication Summary Completed 01/29/2018 Care Plan: Comp Metabolic Cancelled 01/29/2018 Care Plan: Cbc With Differential Cancelled 01/29/2018 Care Plan: %Hba1C LOINC : 18570-4 Cancelled 01/29/2018 Care Plan: Referral Order SNOMED-CT : [id number] Cancelled 01/29/2018 Visit Plan: Fatigue, malaise, joint [...] or concerns. 08/27/2017 Appointment: Madeline Kennedy WPtel: [facility] [place] (15 min) Moderate 08/27/2017 Patient Education: Patient [...] - 08/16/2017 Appointment: Melida Ha WPtel: [phone] [facility] (30 min) Complex 08/16/2017 Patient Education: Patient Medication Summary Completed 08/16/2017 Patient Education: Obesity Completed 08/16/2017 Appointment: Madeline Kennedy WPtel: [facility] (30 min) Complex 08/07/2017 Visit Plan: Shingles [...] contagious. 07/26/2017 Appointment: Madeline Kennedy WPtel: [phone] [phone] (15 min) Moderate 07/26/2017 Patient Education: Patient Medication Summary Completed 07/26/2017 Visit Plan: Cellulitis right foot-cultured today in the office-home health to reapply wound vac--appt with wound care on to evaluate for debridement- 07/03/2017 Appointment: Marcela Oshea WPtel: [phone] [phone] [place] (30 min) Complex 07/03/2017 Patient Education: Patient Medication Summary Completed 07/03/2017 Visit Plan: Abrasion left arm - Pt was instructed to keep the wound clean, wash with antibacterial soap, use triple antibiotic ointment, call if redness, pustular drainage, or any other acute concerns. 06/29/2017 Appointment: Marcela Oshea WPtel: [phone] (15 min) Moderate 06/29/2017 Patient Education: Patient [...] of plan. 06/18/2017 Appointment: Marcela Oshea WPtel: [phone] (15 min) Moderate 06/18/2017 Patient Education: Patient [...] diet-start prilosec 06/07/2017 Appointment: Marcela Oshea WPtel: [phone] (10 min) Simple 06/07/2017 Patient Education: Patient [...] doxycycline 05/17/2017 Appointment: Marcela Oshea WPtel: [phone] [phone] (30 min) Complex 05/17/2017 Patient Education: Patient [...] if you want anai edge called into [facility]. 05/04/2017 Appointment: Marcela Oshea WPtel: [phone] (30 min) Complex 05/04/2017 Patient Education: Patient [...] home. Cough-resolved 03/15/2017 Appointment: Marcela Oshea WPtel: [phone] [place] (15 min) Moderate 03/15/2017 Patient Education: Patient Medication Summary Completed 03/15/2017 Appointment: Marcela Oshea WPtel: [phone] (30 min) Complex 03/12/2017 Visit Plan: Feng [...] discussed 02/16/2017 Appointment: Marcela Oshea WPtel: [phone] [facility] [place] [address] (15 min) Moderate 02/16/2017 Patient Education: Patient [...] less controlled. 02/12/2017 Appointment: Marcela Oshea WPtel: [phone] [phone] (30 min) Complex 02/12/2017 Patient Education: Patient Medication Summary Completed 02/12/2017 Appointment: Marcela Oshea WPtel: [phone] [phone] (30 min) Complex 02/06/2017 Visit Plan: Diabetes [...] will consider 02/05/2017 Appointment: [facility]el[phone] [place] (30 min) Complex 02/05/2017 Patient Education: Patient Medication Summary Completed 02/05/2017 Appointment: Marcela Oshea WPtel: [phone] [place] (30 min) Complex 01/30/2017 Visit Plan: Acute confusion-uncontrolled diabetes- chronically noncompliant with treatment and stopped his insulin several months ago-r/o stroke vs DKA-Dr Ha in to evaluate patient-plan to admit for further work up and treatment-patient's called and she transported him to the hospital 01/29/2017 Appointment: Marcela Oshea WPtel: [phone] [place] (30 min) Complex 01/29/2017 Patient Education: Patient Medication Summary Completed 01/29/2017 Patient Education: Obesity Completed 01/29/2017 Visit Plan: Right foot pain-MRI shows foreign body-appt with Dr Grewal for evaluation on Sunday. 10/13/2016 Appointment: Marcela Oshea WPtel: [phone] [place] (15 min) Moderate 10/13/2016 Patient Education: Patient Medication Summary Completed 10/13/2016 Appointment: Marcela Oshea WPtel: [facility] [phone] [place] (30 min) Complex 10/12/2016 Visit Plan: Right foot blvm-wrgaoeti-rybhk washer dropped on foot-xray negative but pain continues to increase-recommend MRI of foot for further evaluation-refer to wound care for lesions on right foot, patient has diabetes and history of osteomyelitis-culture obtained today-continue oral abx- follow up in the office on , sooner if needed 10/09/2016 Visit Plan: Right foot jffa-qgjfurwo-vpett washer dropped on foot-xray negative but pain continues to increase-recommend MRI of foot for further evaluation-refer to wound care for lesions on right foot, patient has diabetes and history of osteomyelitis-culture obtained today-continue oral abx- follow up in the office on , sooner if needed 10/09/2016 Visit Plan: Right foot prxt-yfrpdtmh-gsadk washer dropped on foot-xray negative but pain continues to increase-recommend MRI of foot for further evaluation-refer to wound care for lesions on right foot, patient has diabetes and history of osteomyelitis-culture obtained today-continue oral abx- follow up in the office on , sooner if needed 10/09/2016 Appointment: Marcela Oshea WPtel: [address] [place], [place] [id number] (30 min) Complex 10/09/2016 Patient Education: Patient Medication Summary Completed 10/09/2016 Visit Plan: Cellulitis - continue with oral antibiotics as previously directed, return to clinic as previously directed, call for acute change in symptoms, worsening redness, warmth, discharge. 10/06/2016 Appointment: Marcela Oshea WPtel: [facility] [phone] (10 min) Simple 10/06/2016 Patient Education: Patient Medication Summary Completed 10/06/2016 Appointment: Marcela Oshea WPtel: [phone] (30 min) Complex 08/24/2016 Referral: Sun Glynn Referral Completed 07/21/2016 Visit Plan: Low back pain- history of spinal fusion- patient for xray lumbar spine-RX sent to [facility] pharmacy and instructed on use-topical voltaren samples provided and instructed on use. Ok to use tylenol as needed as well. The patient is to call the office if the pain is worsening or does not improve. Pressure ulcer left 4th toe-refer to Dr Glynn for evaluation 07/18/2016 Appointment: Marcela Oshea WPtel: [facility] [phone] [place] (30 min) Complex 07/18/2016 Patient Education: Patient Medication Summary Completed 07/18/2016 Patient Education: Obesity Completed 07/18/2016 Care Plan: Referral Order SNOMED-CT : [id number] Cancelled 07/18/2016 Visit Plan: Diabetes Mellitus - [...] glucose control. 06/22/2016 App[facility]ment: [facility] [phone] [phone] (30 min) Complex 06/22/2016 Patient Education: Patient [...] CBC today 05/23/2016 Appointment: [facility]el[facility] [phone] [phone] (30 min) Complex 05/23/2016 Patient Education: Patient [...] of plan. 05/15/2016 Appointment: Marcela Oshea WPtel: [phone] (15 min) Moderate 05/15/2016 Patient Education: Patient [...] blood glucose control. Elevated Hgb-check CBC today stop the vraylar start on cymbalta 30mg [...] allow for greater blood glucose control. 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 Low back pain- history of spinal fusion-patient for xray lumbar spine-RX sent to [facility] pharmacy and instructed on use-topical voltaren samples [...] for fracture from injury . Right foot bffu-vnzsoqqe-ggbvj washer dropped on foot-xray negative but pain [...] for fracture from injury . Right foot shhi-meiaxtpy-rgiru washer dropped on foot-xray negative but pain [...] for fracture from injury . Right foot pkgu-qafqylne-oefpb washer dropped on foot-xray negative but pain continues to increase-recommend MRI of foot for further evaluation-refer to wound care for lesions on right foot, patient has diabetes and history of osteomyelitis-culture obtained today-continue oral abx-follow up in the office on , sooner if needed . Bilateral hip bgew-vvysoske-rbsgimy IM injection administered today for c/o continued myalgia/arthralgia. Patient to start taking Meloxicam 15mg PO daily. Advised to return to clinic if symptoms do not improve. . DM-weight loss-not checking blood sugars-patient sent for labs today HTN-low fgyib-aotodzl-jracr labs Callus of foot and fissue of [...] readings are starting to become less controlled. Jwotsyrug-fucwcagz-ecxlmlis to monitor Generalized weakness-refer for PT-patient refuses [...] allow for greater blood glucose control. Joint qvfg-xwjyvlxt-zkwgckn-symptoms have improved -stop meloxicam due to upset [...] readings at home. Diabetes Mellitus -check labs Atzgtonk-xemjrzs-nenm bite-rx for doxycycline-follow up in 2 weeks [...]
--- OUTSIDE RECORDS SUMMARY | 2018-10-20 11:03 | XMS REPORT | CCD ---
Author Author Madeline Kennedy MD, [facility] Address [address] [place] [address] Phone Care Team Providers Care Access Coordinator Name Role Phone PP Unavailable CCM Unavailable Summary Purpose Interface Exchange Insurance Providers Payer name Policy type / Coverage type Covered green party ID Effective Begin Date Effective End Date Blue Cross Blue Shield [facility] Blue Cross/Blue Shield [id number] Unknown Family history Father Diagnosis Age At Onset Hyperlipidemia Unknown Heart Attack Unknown Mother Diagnosis Age At Onset Hypertension Unknown Social History Social History Element Codes Description Effective Dates Marital status Unknown Mignon 01/20/2016 Number of children Unknown 4 01/20/2016 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/[address]: 820937204 Never smoker 01/20/[address]: 824621250 Never drinks alcohol 01/20/2016 Allergies, Adverse Reactions, [...] Start Date Stop Date Status Fill Instructions Zyrtec 10 mg tablet RxNorm: 7135596 1 Tablet(s) PO daily 09/0910/08/2018 Active Keflex 500 mg capsule RxNorm: 441153 1 Capsule(s) PO TID 201709/15/2018 Active Tresiba FlexTouch U-200 insulin 200 unit/mL (3 mL) subcutaneous pen RxNorm: 8107635 50 Unit(s) SQ daily 08/30/2018 09/28/2018 Active please give him 30 day supply Tresiba FlexTouch U-200 insulin 200 unit/mL (3 mL) subcutaneous pen RxNorm: 6308956 50 Unit(s) SQ daily 08/30/2018 08/29/2018 Inactive please give him 30 day supply Novolog Flexpen U-100 Insulin aspart 100 unit/mL subcutaneous RxNorm: 8130267 8 Unit(s) SQ AC 08/13/2018 No Stop Date Active Novolog Flexpen U-100 Insulin aspart 100 unit/mL subcutaneous RxNorm: 3757222 8 Unit(s) SQ AC 07/22/20182017 Inactive this is an update on his medication Novolog Flexpen U-100 Insulin aspart 100 unit/mL subcutaneous RxNorm: 0069071 12 Unit(s) SQ AC 07/05/20182017 Inactive this is an update on his medication Toujeo SoloStar U-300 Insulin 300 unit/mL (1.5 mL) subcutaneous pen RxNorm: 2045661 INJECT 50 UNITS UNDER THE SKIN DAILY 07/01/2018 08/29/2018 Inactive Mucinex 600 mg tablet, extended release RxNorm: 793712 1 Tablet(s) PO BID 06/28/2018 07/04/2018 Inactive Zofran 4 mg tablet RxNorm: 607155 1 Tablet(s) PO TID as needed nausea 06/28/2018 07/02/2018 Inactive Kenalog 40 mg/mL suspension for injection RxNorm: 4213284 Milliliter(s) Inj 06/28/2018 06/28/2018 Inactive Flonase Allergy Relief 50 mcg/actuation nasal spray, suspension RxNorm: 5932860 1 [place] NASAL BID 06/28/20182017 Inactive Lyrica 50 mg capsule RxNorm: 483212 Capsule(s) PO daily 201707/07/2018 Inactive Novolog Flexpen U-100 Insulin aspart 100 unit/mL subcutaneous RxNorm: 2856828 10 Unit(s) SQ AC 06/18/20182017 Inactive this is an update on his medication Lasix 20 mg tablet RxNorm: 467089 1 Tablet(s) PO BIW 201707/02/2018 Inactive atorvastatin 80 mg tablet RxNorm: 288647 1 Tablet(s) PO QHS 04/201812/06/2018 Active clonazepam 1 mg tablet RxNorm: 675787 2 Tablet(s) PO HS 201706/04/2019 Active clonazepam 1 mg tablet RxNorm: 380798 2 Tablet(s) PO HS as needed 06/10/2018 06/09/2018 Inactive Lyrica 50 mg capsule RxNorm: 540139 Capsule(s) PO daily 201707/08/2018 Inactive Lasix 20 mg tablet RxNorm: 237463 1 Tablet(s) PO TIW 201706/11/2018 Inactive Toujeo SoloStar U-300 Insulin 300 unit/mL (1.5 mL) subcutaneous pen RxNorm: 1761306 50 Unit(s) SQ daily 05/07/2018 06/30/2018 Inactive meloxicam 15 mg tablet RxNorm: 889725 15 Milligram(s) PO daily 05/02/2018 05/12/2018 Inactive ketorolac 30 mg/mL injection solution RxNorm: 704734 2 Milliliter(s) Inj 05/02/2018 05/02/2018 Inactive Toujeo SoloStar U-300 Insulin 300 unit/mL (1.5 mL) subcutaneous pen RxNorm: 8530113 45 Unit(s) daily 04/29/2018 Inactive clonazepam 1 mg tablet RxNorm: 762360 1 Tablet(s) PO Q8 as needed 04/29/2018 06/09/2018 Inactive doxycycline hyclate 100 mg tablet RxNorm: 3131078 1 Tablet(s) PO BID 04/29/2018 05/12/2018 Inactive Cymbalta 30 mg capsule,delayed release RxNorm: 084789 1 Capsule(s) PO QAM 03/13/2018 10/08/2018 Active Lexapro 10 mg tablet RxNorm: 435364 1 Tablet(s) PO QPM 201703/03/2018 Inactive Toujeo SoloStar U-300 Insulin 300 unit/mL (1.5 mL) subcutaneous pen RxNorm: 3175051 20 Unit(s) daily 02/28/2018 Inactive Protonix 40 mg tablet,delayed release RxNorm: 711015 1 Tablet(s) PO daily 01/29/2018 06/09/2018 Inactive clonazepam 1 mg tablet RxNorm: 885822 1 Tablet(s) PO Q8 as needed 12/12/2017 03/10/2018 Inactive Tamiflu 75 mg capsule RxNorm: 564200 1 Capsule(s) PO BID 201712/03/2017 Inactive doxycycline hyclate 100 mg capsule RxNorm: 0381846 1 Capsule(s) PO BID 09/07/2017 09/20/2017 Inactive doxycycline hyclate 100 mg capsule RxNorm: 6391219 1 Capsule(s) PO BID 08/27/2017 09/06/2017 Inactive prednisone 20 mg tablet RxNorm: 416968 2 Tablet(s) PO daily 08/31/2017 Inactive clopidogrel 75 mg tablet RxNorm: 738259 1 Tablet(s) PO daily 06/09/2018 Inactive atorvastatin 40 mg tablet RxNorm: 988819 1 Tablet(s) PO QHS 02/27/2018 Inactive losartan 25 mg tablet RxNorm: 593564 TAKE ONE TABLET BY MOUTH DAILY 08/22/2017 06/09/2018 Inactive Toujeo SoloStar 300 unit/mL (1.5 mL) subcutaneous insulin pen RxNorm: 9763305 45 Unit(s) daily 08/17/2017 08/20/2017 Inactive mupirocin 2 % topical ointment RxNorm: 039681 1 Application TOP TID to the lesions on chest 08/16/2017 08/25/2017 Inactive Toujeo SoloStar 300 unit/mL (1.5 mL) subcutaneous insulin pen RxNorm: 5263520 40 Unit(s) daily 08/16/2017 08/16/2017 Inactive valacyclovir 1 gram tablet RxNorm: 529890 1 Tablet(s) PO TID 08/01/2017 Inactive clonazepam 1 mg tablet RxNorm: 591360 1 Tablet(s) PO Q8 as needed 07/03/2017 09/30/2017 Inactive Levaquin 500 mg tablet RxNorm: 151066 1 Tablet(s) PO daily 06/25/2017 Inactive Levaquin 500 mg tablet RxNorm: 540142 1 Tablet(s) PO daily 06/21/2017 Inactive losartan 25 mg tablet RxNorm: 483820 1 Tablet(s) PO daily 201608/16/2017 Inactive nystatin 100,000 unit/mL oral suspension RxNorm: 633460 5 Milliliter(s) PO QID Swish et swallow 06/18/2017 06/17/2017 Inactive nystatin 100,000 unit/mL oral suspension RxNorm: 208130 5 Milliliter(s) PO QID Swish et swallow 06/18/2017 06/27/2017 Inactive Cipro 500 mg tablet RxNorm: 398940 1 Tablet(s) PO BID 201606/18/2017 Inactive Cipro 500 mg tablet RxNorm: 918248 1 Tablet(s) PO BID 201606/11/2017 Inactive Toujeo SoloStar 300 unit/mL (1.5 mL) subcutaneous insulin pen RxNorm: 0457319 INJECT 10 UNITS UNDER THE SKIN DAILY 06/12/2017 08/15/2017 Inactive Keflex 500 mg capsule RxNorm: 789606 1 Capsule(s) PO TID 201606/13/2017 Inactive doxycycline hyclate 100 mg capsule RxNorm: 9392708 1 Capsule(s) PO BID 05/17/2017 05/21/2017 Inactive doxycycline hyclate 100 mg capsule RxNorm: 5032293 1 Capsule(s) PO BID 05/11/2017 05/16/2017 Inactive losartan 25 mg tablet RxNorm: 392229 1 Tablet(s) PO daily 201606/17/2017 Inactive atorvastatin 40 mg tablet RxNorm: 760254 1 Tablet(s) PO daily 03/01/2017 08/23/2017 Inactive clopidogrel 75 mg tablet RxNorm: 086855 1 Tablet(s) PO daily 08/23/2017 Inactive Flonase Allergy Relief 50 mcg/actuation nasal spray, suspension RxNorm: 5613643 2 [place] NASAL daily 02/16/20172016 Inactive Augmentin 875 mg-125 mg tablet RxNorm: 898328 1 Tablet(s) PO BID 02/16/2017 02/22/2017 Inactive GET PROBIOTIC TO TAKE WHILE ON ABX Tamiflu 75 mg capsule RxNorm: 275580 1 Capsule(s) PO BID 201602/20/2017 Inactive ceftriaxone 500 mg solution for injection RxNorm: 1166056 1 Milliliter(s) Inj 02/16/2017 02/16/2017 Inactive Kenalog 40 mg/mL suspension for injection RxNorm: 1224192 1 Milliliter(s) Inj 02/16/2017 02/16/2017 Inactive Toujeo SoloStar 300 unit/mL (1.5 mL) subcutaneous insulin pen RxNorm: 9392762 25 Unit(s) SQ QAM 02/12/2017 06/10/2017 Inactive Toujeo SoloStar 300 unit/mL (1.5 mL) subcutaneous insulin pen RxNorm: 2464843 10 Unit(s) SQ QAM 02/05/2017 02/11/2017 Inactive lisinopril 10 mg tablet RxNorm: 705076 1 Tablet(s) PO daily 02/28/2017 Inactive atorvastatin 40 mg tablet RxNorm: 612763 1 Tablet(s) PO daily 02/01/2017 02/28/2017 Inactive doxycycline hyclate 100 mg capsule RxNorm: 7091394 1 Capsule(s) PO BID 02/01/2017 02/10/2017 Inactive clonazepam 1 mg tablet RxNorm: 689136 1 Tablet(s) PO Q8 as needed 10/09/2016 01/05/2017 Inactive ceftriaxone 1 gram solution for injection RxNorm: 7157314 Inj 10/06/2016 10/06/2016 Inactive cyclobenzaprine 10 mg tablet RxNorm: 407808 1/2-1 Tablet(s) PO TID PRN 07/18/2016 01/28/2017 Inactive clonazepam 1 mg tablet RxNorm: 847606 1 Tablet(s) PO Q8 as needed 05/31/2016 05/29/2016 Inactive clonazepam 1 mg tablet RxNorm: 252305 1 Tablet(s) PO Q8 as needed 05/31/2016 08/28/2016 Inactive Toujeo SoloStar 300 unit/mL (1.5 mL) subcutaneous insulin pen RxNorm: 3558256 10 Unit(s) SQ daily 05/23/2016 01/28/2017 Inactive Crestor 10 mg tablet RxNorm: 271100 1 Tablet(s) PO QHS 201501/28/2017 Inactive Crestor 10 mg tablet RxNorm: 276833 1 Tablet(s) PO QHS 201505/18/2016 Inactive clonazepam 1 mg tablet RxNorm: 812336 1 Tablet(s) PO Q8 as needed 04/25/2016 05/30/2016 Inactive prednisone 20 mg tablet RxNorm: 782061 3 Tablet(s) PO daily 06/201602/10/2016 Inactive prednisone 20 mg tablet RxNorm: 104257 3 Tablet(s) PO daily 06/201605/14/2016 Inactive Kenalog 40 mg/mL suspension for injection RxNorm: 2155909 Milliliter(s) Inj 01/20/2016 01/20/2016 Inactive aspirin 81 mg tablet,delayed release RxNorm: 629801 1 Tablet(s) PO daily No Start Date Active Brilinta 90 mg tablet RxNorm: 6226670 1 Tablet(s) PO BID No Start Date Active Coreg 6.25 mg tablet RxNorm: 659601 1 Tablet(s) PO BID No Start Date Active acetaminophen 500 mg tablet RxNorm: 051406 1-2 Tablet(s) PO as needed No Start Date Active clopidogrel 75 mg tablet RxNorm: 820661 1 Tablet(s) PO daily No Start Date 02/28/2017 Inactive Novolog Flexpen U-100 Insulin aspart 100 unit/mL subcutaneous RxNorm: 4255526 5 units with breakfast lunch and 10 supper Unit(s) SQ No Start Date 06/17/2018 Inactive clonazepam 1 mg tablet RxNorm: 595361 1 Tablet(s) PO QHS No Start Date 04/24/2016 Inactive acyclovir 400 mg tablet RxNorm: 228919 2 Tablet(s) PO 5x daily No Start Date 02/28/2017 Inactive Lyrica 50 mg capsule RxNorm: 702411 Capsule(s) PO BID No Start Date 06/09/2018 Inactive Vraylar 3 mg capsule RxNorm: 4473139 1 Capsule(s) PO daily No Start Date 03/12/2018 Inactive Medication Administered Medication Codes Instructions Start Date Status Kenalog 40 mg/mL suspension for injection RxNorm: 1962537 Milliliter 06/28/2018 No longer Active ketorolac 30 mg/mL injection solution RxNorm: 237109 2Milliliter 05/02/2018 No longer Active ceftriaxone 500 mg solution for injection RxNorm: 2574510 1Milliliter 02/16/2017 No longer Active Kenalog 40 mg/mL suspension for injection RxNorm: 7178719 1Milliliter 02/16/2017 No longer Active ceftriaxone 1 gram solution for injection RxNorm: 9495315 10/06/2016 No longer Active Kenalog 40 mg/mL suspension for injection RxNorm: 5869071 Milliliter 01/20/2016 No longer Active Immunizations Vaccine Codes Date Status Influenza CVX: 141 07/22/2018 completed Influenza CVX: 141 08/16/2017 completed Assessments Condition Codes Effective Dates Cough ICD-10: R05 ICD-9: 786.2 09/09/2018 Acute recurrent maxillary sinusitis ICD-10: J01.01 ICD-9: 461.0 09/09/2018 Type 2 diabetes mellitus with hyperglycemia [...] Observation Code Item Item Code Result Date C Diff An [id number] GDH TNP:Lab Request 06/22/2018 C Diff An [id number] Toxin A/B TNP:Lab Request 06/22/2018 C Diff An [id number] C Diff Analyzer TNP:Lab Request 2017 C Diff An [id number] IC OK? TNP:Lab Request 06/22/2018 CBC [id number] WBC 6.4 10e9/L 05/02/2018 CBC [id number] RBC 5.60 10e12/L 05/02/2018 CBC 3768019 HEMOGLOBIN 17.0 g/dL 05/02/2018 CBC 2138491 HEMATOCRIT 48.0 % 05/02/2018 CBC 6319687 MCV 85.7 fL 05/02/2018 CBC 5323214 MCH 30.4 pg 05/02/2018 CBC 3427968 MCHC 35.4 g/dL 05/02/2018 CBC 9747497 PLATELET COUNT 166 10e9/L 05/02/2018 CBC 6955052 Mean Plt Volume 11.6 fL 05/02/2018 CBC 4799669 Neut Auto 48.6 % 05/02/2018 CBC 2968249 Lymph Auto 41.7 % 05/02/2018 CBC 8697779 [place] Auto 8.1 % 05/02/2018 CBC 3707846 RDW 13.1 % 05/02/2018 CBC 2858151 Eos Auto 1.1 % 05/02/2018 CBC 7124844 Baso Auto 0.5 % 05/02/2018 CBC 0955096 Neutrophil Abs 3.11 10e9/L 05/02/2018 CBC 4956875 Lymphocyte Abs 2.67 10e9/L 05/02/2018 CBC 6572625 Monocyte Abs 0.52 10e9/L 05/02/2018 CBC 1185679 Eosinophil Abs 0.07 10e9/L 05/02/2018 CBC 7676866 RDW-SD 40.0 fL 05/02/2018 CBC 9486434 Basophil Abs 0.03 10e9/L 05/02/2018 CHEM 14 7719726 AST 17 U/L 05/02/2018 CHEM 14 0841760 ALT 17 U/L 05/02/2018 CHEM 14 0506102 BUN 17 mg/dL 05/02/2018 CHEM 14 1018625 ALBUMIN 4.0 g/dL 05/02/2018 CHEM 14 8634454 CHLORIDE 97 mmol/L 05/02/2018 CHEM 14 4619337 Bili Total 0.9 mg/dL 05/02/2018 CHEM 14 5444488 ALK PHOS 67 U/L 05/02/2018 CHEM 14 9120520 SODIUM 135 mmol/L 05/02/2018 CHEM 14 7281510 CREATININE 1.18 mg/dL 05/02/2018 CHEM 14 4482609 CALCIUM 9.4 mg/dL 05/02/2018 CHEM 14 3001891 POTASSIUM 4.4 mmol/L 05/02/2018 CHEM 14 8714395 TOTAL PROTEIN 6.9 g/dL 05/02/2018 CHEM 14 8146009 GLUCOSE 316 mg/dL 05/02/2018 CHEM 14 1242551 Bicarbonate 29 mmol/L 05/02/2018 CHEM 14 8433975 AGAP 9 mmol/L 05/02/2018 MEAN GLUC 9910008 Calc Mean Gluc 283 mg/dL 05/02/2018 A1C HPLC 0116645 Hgb A1c 30097-8 11.5 % 05/02/2018 GFR CALC 5002265 GFR Non Afr Amr >60 mL/min 05/02/2018 GFR CALC 1838840 GFR Afr Amr >60 mL/min 05/02/2018 JIC Gold [id number] JIC Gold Complete 02/28/2018 GFR CALC 6183037 GFR Non Afr Amr >60 mL/min 02/28/2018 GFR CALC 1445622 GFR Afr Amr >60 mL/min 02/28/2018 UA W/CII 5061244 UA Urine Appear Normal 02/28/2018 UA W/CII 8566541 UA Protein 1+ 02/28/2018 UA W/CII 8418092 UA Hemoglobin Negative 02/28/2018 UA W/CII 3202946 UA Glucose 4+ 02/28/2018 UA W/CII 5388009 UA Ketones Trace 02/28/2018 UA W/CII 5723827 UA pH 5.5 02/28/2018 UA W/CII 4224896 U Spec [place] 1.015 02/28/2018 UA W/CII 6006439 UA Bilirubin Negative 02/28/2018 UA W/CII 0534612 UA Nitrite NEG 02/28/2018 UA W/CII 9104275 UA Leuk Esteras Negative 02/28/2018 MICR 0720898 UA WBC/hpf 1 02/28/2018 MICR 5077774 UA RBC hpf 2 02/28/2018 MICR 3782086 UA WBC auto 3.8 /uL 02/28/2018 MICR 2234545 UA RBC auto 12.2 /uL 02/28/2018 MICR 9636129 UA SQ EPI auto 2.3 /uL 02/28/2018 MICR 6879164 UA H Cast auto 0.10 /uL 02/28/2018 CBC 4196227 WBC 6.4 10e9/L 02/28/2018 CBC 9531649 RBC 5.51 10e12/L 02/28/2018 CBC 6326625 HEMOGLOBIN 16.7 g/dL 02/28/2018 CBC 2108138 HEMATOCRIT 46.9 % 02/28/2018 CBC 3612429 MCV 85.1 fL 02/28/2018 CBC 7873040 MCH 30.3 pg 02/28/2018 CBC 6487852 MCHC 35.6 g/dL 02/28/2018 CBC 8823410 PLATELET COUNT 173 10e9/L 02/28/2018 CBC 6610211 Mean Plt Volume 11.6 fL 02/28/2018 CBC 4355830 Neut Auto 51.8 % 02/28/2018 CBC 3562893 Lymph Auto 39.9 % 02/28/2018 CBC 9896304 [place] Auto 7.3 % 02/28/2018 CBC 4991256 Eos Auto 0.8 % 02/28/2018 CBC 7905489 RDW 13.3 % 02/28/2018 CBC 8887189 Baso Auto 0.2 % 02/28/2018 CBC 8512009 Neutrophil Abs 3.32 10e9/L 02/28/2018 CBC 4898683 Lymphocyte Abs 2.55 10e9/L 02/28/2018 CBC 1319156 Monocyte Abs 0.47 10e9/L 02/28/2018 CBC 3310022 Eosinophil Abs 0.05 10e9/L 02/28/2018 CBC 5223357 Basophil Abs 0.01 10e9/L 02/28/2018 CBC 3143552 RDW-SD 40.8 fL 02/28/2018 CHEM 14 2461829 AST 17 U/L 02/28/2018 CHEM 14 0004443 ALT 17 U/L 02/28/2018 CHEM 14 2566488 BUN 20 mg/dL 02/28/2018 CHEM 14 5945496 ALBUMIN 4.1 g/dL 02/28/2018 CHEM 14 3978137 CHLORIDE 97 mmol/L 02/28/2018 CHEM 14 9372441 Bili Total 1.3 mg/dL 02/28/2018 CHEM 14 3233381 ALK PHOS 78 U/L 02/28/2018 CHEM 14 9654571 SODIUM 135 mmol/L 02/28/2018 CHEM 14 8698289 CREATININE 1.09 mg/dL 02/28/2018 CHEM 14 0439087 CALCIUM 9.6 mg/dL 02/28/2018 CHEM 14 7402045 POTASSIUM 3.8 mmol/L 02/28/2018 CHEM 14 7717169 TOTAL PROTEIN 7.3 g/dL 02/28/2018 CHEM 14 4275222 GLUCOSE 349 mg/dL 02/28/2018 CHEM 14 6789695 Bicarbonate 29 mmol/L 02/28/2018 CHEM 14 7278491 AGAP 9 mmol/L 02/28/2018 [place] Spotted Fever Igg/Igm 118145 FEI MT SPOTTED FEVER IGM EIA . 09/05/2017 [place] Spotted Fever Igg/Igm 495493 RMSF, IGM 0.17 index 09/05/2017 [place] Spotted Fever Igg/Igm 304132 FEI MT SPOTTED FEVER IGG EIA FLEX . 09/05/2017 [place] Spotted Fever Igg/Igm 339553 RMSF, IGG SCREEN-FLEX Positive 09/05/2017 Fei Mtn Spot'D Fev Igg 979872 RMSF, IGG -TITER IFA <1:64 11/2016 Ehrlichia Chaffeensis Antibody Igm 454086 EHRLICHIA CHAFFEENSIS IGM < 1:16 09/03/2017 Ehrlichia Chaffeensis Antibody Igg 555626 EHRLICHIA CHAFFEENSIS IGG <1:64 09/03/2017 Lymes Disease Total Antibodies With Western Blot Reflex B. BURGDORFERI, IGG/IGM 0.223 08/30/2017 [place]ymes Disease Total Antibodies With Western Blot Reflex C-Reactive Protein Qnt Crqnt CRP 0.00 mg/dl 08/27/2017 Sed Rate Ord21 ESR 8 mm/hr 08/27/2017 Comp Metabolic Uux855 NA 135 mEq/L 08/16/2017 Comp Metabolic Pyc006 K 4.1 mEq/L 08/16/2017 Comp Metabolic Yqu861 CL 98 mEq/L 08/16/2017 Comp Metabolic Kvo204 CO2 28.0 mEq/L 08/16/2017 Comp Metabolic Yew441 ANION GAP 13 08/16/2017 Comp Metabolic Vdr323 GLUCOSE 299 mg/dL 08/16/2017 Comp Metabolic Gby674 Creat 0.9 mg/dL 08/16/2017 Comp Metabolic Icy373 eGFR 90 ml/min/1.73m2 08/16/2017 Comp Metabolic Byx430 BUN 20 mg/dL 08/16/2017 Comp Metabolic Tyw058 B/C Ratio 21.5 Ratio 08/16/2017 Comp Metabolic Fjn698 CALCIUM 9.2 mg/dL 08/16/2017 Comp Metabolic Xas252 ALK PHOS 84 U/L 08/16/2017 Comp Metabolic Qcx361 AST(SGOT) 19 U/L 08/16/2017 Comp Metabolic Hzi395 ALT(SGPT) 24 U/L 08/16/2017 Comp Metabolic Xvi131 BILI T 1.1 mg/dL 08/16/2017 Comp Metabolic Syi283 ALBUMIN 4.2 g/dL 08/16/2017 Comp Metabolic Kot931 TPRO 7.2 g/dL 08/16/2017 Comp Metabolic Qbq928 GLOB 3.0 g/dL 08/16/2017 Comp Metabolic Mks910 A/G Ratio 1.4 Ratio 08/16/2017 Comp Metabolic Cuu722 Osmo 284 mOsmo 08/16/2017 %Hba1C Wis657 % HbA1c 30404-9 12.5 % 08/16/2017 %Hba1C Kdm743 Gluc Ave 312 mg/dL 08/16/2017 Urine Culture Ucult Complete NO Growth Day 2 06/23/2017 Urine Culture Ucult Preliminary NO Growth Day 1 06/23/2017 C RAP A SC [id number] Strep A Negative 06/08/2017 %Hba1C Tcd213 % HbA1c 73423-9 9.5 % 05/04/2017 %Hba1C Cye797 Gluc Ave 226 mg/dL 05/04/2017 Tsh Ord6 [...] 89.9 fl 05/04/2017 Cbc With Differential Ord2 Noble% 8.5 % 05/04/2017 Cbc With Differential Ord2 [...] 2.48 K/ul 05/04/2017 Cbc With Differential Ord2 [place] ABS# 0.5 K/ul 05/04/2017 Cbc With Differential Ord2 Eos ABS# 0.1 K/ul 05/04/2017 Cbc With Differential Ord2 Baso ABS# 0.0 K/ul 05/04/2017 Comp Metabolic Xeu448 NA 135 mEq/L 05/04/2017 Comp Metabolic Qem231 K 4.2 mEq/L 05/04/2017 Comp Metabolic Zvr450 CL 99 mEq/L 05/04/2017 Comp Metabolic Wub335 CO2 26.0 mEq/L 05/04/2017 Comp Metabolic Nxc678 ANION GAP 14 05/04/2017 Comp Metabolic Djp231 GLUCOSE 277 mg/dL 05/04/2017 Comp Metabolic Oiv466 Creat 0.9 mg/dL 05/04/2017 Comp Metabolic Jkp324 eGFR 96 ml/min/1.73m2 05/04/2017 Comp Metabolic Hhy735 BUN 23 mg/dL 05/04/2017 Comp Metabolic Dty001 B/C Ratio 26.1 Ratio 05/04/2017 Comp Metabolic Dbd787 CALCIUM 8.9 mg/dL 05/04/2017 Comp Metabolic Gat283 ALK PHOS 81 U/L 05/04/2017 Comp Metabolic Uph337 AST(SGOT) 21 U/L 05/04/2017 Comp Metabolic Eny158 ALT(SGPT) 27 U/L 05/04/2017 Comp Metabolic Sld869 BILI T 1.2 mg/dL 05/04/2017 Comp Metabolic Iwv220 ALBUMIN 4.0 g/dL 05/04/2017 Comp Metabolic Zcp370 TPRO 6.7 g/dL 05/04/2017 Comp Metabolic Vbx100 GLOB 2.7 g/dL 05/04/2017 Comp Metabolic Ueg030 A/G Ratio 1.5 Ratio 05/04/2017 Comp Metabolic Obo295 Osmo 284 mOsmo 05/04/2017 C A/B FLU 2848313 Influenza A Scr Negative 02/16/2017 C A/B FLU 8264895 Influenza B Scr Positive 02/16/2017 Cbc With [...] 39.7 % 05/23/2016 Cbc With Differential Ord2 Noble% 8.8 % 05/23/2016 Cbc With Differential Ord2 [...] 2.07 K/ul 05/23/2016 Cbc With Differential Ord2 [place] ABS# 0.5 K/ul 05/23/2016 Cbc With Differential Ord2 Eos ABS# 0.1 K/ul 05/23/2016 Cbc With Differential Ord2 Baso ABS# 0.0 K/ul 05/23/2016 Lipid Ord30 CHOL 397 mg/dL 05/17/2016 Lipid Ord30 HDL 48.0 mg/dl 05/17/2016 Lipid Ord30 TRIG 578 mg/dL 05/17/2016 Lipid Ord30 LDL Unable to calculate Due to elevated triglycerides mg/dL 05/17/2016 Lipid Ord30 C/HDL 8.3 Ratio 05/17/2016 %Hba1C Ohg578 % HbA1c 19483-8 12.4 % 05/16/2016 %Hba1C Igh887 Gluc Ave 309 mg/dL 05/16/2016 Cbc With [...] 87.4 fl 05/15/2016 Cbc With Differential Ord2 [place]% 7.8 % 05/15/2016 Cbc With Differential Ord2 [...] 2.04 K/ul 05/15/2016 Cbc With Differential Ord2 [place] ABS# 0.5 K/ul 05/15/2016 Cbc With Differential Ord2 Eos ABS# 0.1 K/ul 05/15/2016 Cbc With Differential Ord2 Baso ABS# 0.0 K/ul 05/15/2016 Tsh Ord6 hTSH II 1.70 uIU/mL 05/15/2016 Comp Metabolic Dth142 NA 135 mEq/L 05/15/2016 Comp Metabolic Mfy202 K 3.9 mEq/L 05/15/2016 Comp Metabolic Uxo770 CL 96 mEq/L 05/15/2016 Comp Metabolic Jxp430 CO2 27.0 mEq/L 05/15/2016 Comp Metabolic Jtc757 ANION GAP 16 05/15/2016 Comp Metabolic Dfz617 GLUCOSE 183 mg/dL 05/15/2016 Comp Metabolic Dbs291 Creat 1.1 mg/dL 05/15/2016 Comp Metabolic Dpl654 eGFR 71 ml/min/1.73m2 05/15/2016 Comp Metabolic Qnh706 BUN 17 mg/dL 05/15/2016 Comp Metabolic Nzy645 B/C Ratio 14.9 Ratio 05/15/2016 Comp Metabolic Dti523 CALCIUM 9.6 mg/dL 05/15/2016 Comp Metabolic Hcb094 ALK PHOS 100 U/L 05/15/2016 Comp Metabolic Dcy349 AST(SGOT) 20 U/L 05/15/2016 Comp Metabolic Tov568 ALT(SGPT) 20 U/L 05/15/2016 Comp Metabolic Djs906 BILI T 1.3 mg/dL 05/15/2016 Comp Metabolic Pkf696 ALBUMIN 4.6 g/dL 05/15/2016 Comp Metabolic Etv579 TPRO 8.1 g/dL 05/15/2016 Comp Metabolic Ogi345 GLOB 3.5 g/dL 05/15/2016 Comp Metabolic Jby386 A/G Ratio 1.3 Ratio 05/15/2016 Comp Metabolic Tqi647 Osmo 276 mOsmo 05/15/2016 Review of Systems [...] clear 07/16/2018 None Full Exam - General 1995 Eyes conjunctiva /eyelids Overall: cornea clear 07/16/2018 None Full Exam - General 1994 Eyes conjunctiva /eyelids Overall: eyelids normal 07/16/2018 None Full Exam - General 1995 Ears/Nose/Throat otoscopic exam Overall: external auditory canals clear 07/16/2018 None Full Exam - General 1995 Ears/Nose/Throat [...] of skin Location: face 05/04/2017 patch left caodaism Full Exam - General 1994 Constitutional general [...] rate 01/20/2016 None Procedures Procedure Codes Date IMMUNIZATION ADMIN CPT -4: 24759 07/22/2018 FLU VAC NO PRSV 4 MENA 3 YRS+ CPT-4: 56993 07/22/2018 TRIAMCINOLONE ACET INJ NOS CPT-4: J3301 06/28/2018 KETOROLAC TROMETHAMINE INJ CPT-4: J1885 05/02/2018 FLU VAC NO PRSV 4 MENA 3 YRS+ CPT-4: 23950 08/16/2017 IMMUNIZATION ADMIN CPT -4: 43593 08/16/2017 URINALYSIS NONAUTO W/O SCOPE CPT-4: 54010 06/21/2017 TRIAMCINOLONE ACET INJ NOS CPT-4: J3301 05/04/2017 THER/PROPH/DIAG INJ SC/IM CPT-4: 35724 05/04/2017 TRIAMCINOLONE ACET INJ NOS CPT-4: J3301 02/16/2017 ROCEPHIN, PER 250 MG CPT-4: J0696 02/16/2017 ROCEPHIN, PER 250 MG CPT-4: J0696 10/06/2016 URINALYSIS NONAUTO W/O SCOPE CPT-4: 22296 07/18/2016 TRIAMCINOLONE ACET INJ NOS CPT-4: J3301 01/20/2016 Vital Signs Date Vital 09/09/2018 Blood Pressure 1: 140/80 Code : 8480-6 BMI: 33.0 Code : 90027-2 Heart Rate 1 : 97 bpm Height: 6'2" SpO2: 93% Temperature: 36.8 (C) / 98.2 (F) Weight: 257 lbs 07/22/2018 Blood Pressure 1: 120/78 Code : 8480-6 BMI: 31.6 Code : 94789-8 Heart Rate 1 : 87 bpm Height: 6'2" SpO2: 98% Weight: 246 lbs 07/16/2018 Blood Pressure 1: 132/74 Code : 8480-6 BMI: 31.2 Code : 23019-7 Heart Rate 1 : 90 bpm Height: 6'2" SpO2: 96% Weight: 243 lbs 07/01/2018 Blood Pressure 1: 142/82 Code : 8480-6 BMI: 31.8 Code : 34302-3 Heart Rate 1 : 88 bpm Height: 6'2" SpO2: 98% Weight: 248 lbs 06/28/2018 Blood Pressure 1: 132/76 Code : 8480-6 BMI: 31.8 Code : 20558-7 Heart Rate 1 : 107 bpm Height: 6'2" SpO2: 98% Temperature: 37.9 (C) / 100.3 (F) Weight: 248 lbs 06/18/2018 Blood Pressure 1: 138/82 Code : 8480-6 BMI: 31.8 Code : 44797-5 Heart Rate 1 : 82 bpm Height: 6'2" SpO2: 97% Weight: 248 lbs 06/04/2018 Blood Pressure 1: 128/84 Code : 8480-6 BMI: 33.9 Code : 35505-1 Heart Rate 1 : 86 bpm Height: 6'2" SpO2: 95% Weight: 264 lbs 05/13/2018 Blood Pressure 1: 130/80 Code : 8480-6 BMI: 31.1 Code : 43344-5 Heart Rate 1 : 100 bpm Height: 6'2" SpO2: 94% Weight: 242 lbs 05/02/2018 Blood Pressure 1: 134/84 Code : 8480-6 BMI: 31.2 Code : 34434-6 Heart Rate 1 : 93 bpm Height: 6'2" SpO2: 98% Weight: 243 lbs 04/29/2018 Blood Pressure 1: 142/88 Code : 8480-6 BMI: 31.6 Code : 63555-8 Heart Rate 1 : 96 bpm Height: 6'2" SpO2: 96% Temperature: 36.7 (C) / 98.1 (F) Weight: 246 lbs 03/13/2018 Blood Pressure 1: 120/76 Code : 8480-6 BMI: 30.9 Code : 40691-1 Heart Rate 1 : 112 bpm Height: 6'2" SpO2: 97% Weight: 241 lbs 03/07/2018 Blood Pressure 1: 108/78 Code : 8480-6 BMI: 30.0 Code : 70508-2 Heart Rate 1 : 87 bpm Height: 6'2" SpO2: 98% Weight: 234 lbs 02/28/2018 Blood Pressure 1: 106/74 Code : 8480-6 BMI: 30.0 Code : 76791-2 Heart Rate 1 : 101 bpm Height: 6'2" SpO2: 98% Temperature: 36.4 (C) / 97.5 (F) Weight: 234 lbs 02/13/2018 Blood Pressure 1: 110/78 Code : 8480-6 BMI: 30.0 Code : 81194-8 Heart Rate 1 : 106 bpm Height: 6'2" SpO2: 98% Weight: 234 lbs 01/29/2018 Blood Pressure 1: 106/68 Code : 8480-6 BMI: 30.0 Code : 27378-4 Heart Rate 1 : 108 bpm Height: 6'2" SpO2: 98% Weight: 234 lbs 08/27/2017 Blood Pressure 1: 134/76 Code : 8480-6 Heart Rate 1: 98 bpm Height: SpO2: 97% Weight: 08/16/2017 Blood Pressure 1: 128/80 Code : 8480-6 BMI: 32.0 Code : 75113-8 Heart Rate 1 : 94 bpm Height: [...] Code : 8480-6 BMI: 31.8 Code : 09259-0 Heart Rate 1 : 102 bpm Height: [...] Code : 8480-6 BMI: 31.8 Code : 11208-1 Heart Rate 1 : 85 bpm Height: 6'2" SpO2: 96% Temperature: 36.6 (C) / 97.9 (F) Weight: 248 lbs 02/12/2017 Blood Pressure 1: 126/76 Code : 8480-6 BMI: 31.8 Code : 22958-7 Heart Rate 1 : 106 bpm Height: 6'2" SpO2: 91% Weight: 248 lbs 02/05/2017 Blood Pressure 1: 146/86 Code : 8480-6 BMI: 31.9 Code : 15998-9 Heart Rate 1 : 98 bpm Height: 6'2" SpO2: 87% Temperature: 36.7 (C) / 98.0 (F) Weight: 248 lbs 8 oz 01/29/2017 Blood Pressure 1: 132/84 Code : 8480-6 BMI: 31.8 Code : 04164-7 Heart Rate 1 : 83 bpm Height: 6'2" SpO2: 97% Weight: 248 lbs 10/13/2016 Blood Pressure 1: 128/72 Code : 8480-6 Heart Rate 1: 86 bpm SpO2: 94% 10/09/2016 Blood Pressure 1: 128/68 Code : 8480-6 Heart Rate 1: 136 bpm SpO2: 94% Temperature: 36.8 (C) / 98.2 (F) 10/06/2016 Blood Pressure 1: 140/80 Code : 8480-6 BMI: 32.1 Code : 14552-8 Heart Rate 1 : 94 bpm Height: 6'2" SpO2: 95% Weight: 250 lbs 07/18/2016 Blood Pressure 1: 128/86 Code : 8480-6 BMI: 32.1 Code : 40083-9 Heart Rate 1 : 89 bpm Height: 6'2" SpO2: 96% Weight: 250 lbs 06/22/2016 Blood Pressure 1: 118/70 Code : 8480-6 BMI: 32.1 Code : 01253-7 Heart Rate 1 : 70 bpm Height: 6'2" SpO2: 97% Weight: 250 lbs 05/23/2016 Blood Pressure 1: 128/80 Code : 8480-6 BMI: 32.1 Code : 20993-8 Heart Rate 1 : 76 bpm Height: 6'2" SpO2: 98% Weight: 250 lbs 05/15/2016 Blood Pressure 1: 110/90 Code : 8480-6 BMI: 31.3 Code : 91321-7 Heart Rate 1 : 111 bpm Height: 6'2" SpO2: 97% Temperature: 36.6 (C) / 97.8 (F) Weight: 244 lbs 01/20/2016 Blood Pressure 1: 128/76 Code : 8480-6 BMI: 33.0 Code : 63826-0 Heart Rate 1 : 103 bpm Height: [...] Codes Date EST. PATIENT, LEVEL III Diagnosis: Acute recurrent maxillary sinusitis[ICD10: J01.01] Diagnosis: Cough[ICD10: R05] Diagnosis: Type 2 diabetes mellitus with hyperglycemia[ICD10: E11.65] Marcela Ha MD, [facility] CPT-4: 26197 09/09/2018 ([id number]) 54233 EST. PATIENT, LEVEL IV Diagnosis: Essential (primary) hypertension[ICD10: I10] Diagnosis: Mixed hyperlipidemia[ICD10: E78.2] Diagnosis: Bipolar disorder, current episode depressed, moderate[ICD10: F31.32] Diagnosis: Type 2 diabetes mellitus with other specified complication[ICD10: E11.69] Melida Ha MD, [facility] CPT-4: 42634 2017 ([id number]) 46051 EST. PATIENT, LEVEL III Diagnosis: Insomnia due to medical condition[ICD10: G47.01] Marcela Ha MD, [facility] CPT-4: 70898 07/16/2018 ([id number]) Miscellaneous no charge Diagnosis: Cough[ICD10: R05] Madeline Ha MD, [facility] CPT-4: 63745 07/01/2018 32847 EST. PATIENT, LEVEL III Diagnosis: Cough[ICD10: R05] Diagnosis: Acute laryngopharyngitis[ICD10: J06.0] Diagnosis: Other allergic rhinitis[ICD10: J30.89] Madeline Ha MD, [facility] CPT-4: 09909 06/28/2018 [id number]) 45820 EST. PATIENT, LEVEL IV Diagnosis: Type 2 diabetes mellitus with hyperglycemia[ICD10: E11.65] Diagnosis: Essential (primary) hypertension[ICD10: I10] Melida Ha MD, [facility] CPT-4: 61085 06/18/2018 [id number] 67415 EST. PATIENT, LEVEL IV Diagnosis: Type 2 diabetes mellitus with hyperglycemia[ICD10: E11.65] Diagnosis: Essential (primary) hypertension[ICD10: I10] Diagnosis: Localized edema[ICD10: R60.0] Melida Ha MD, [facility] CPT- 4: 34875 06/04/2018 ([id number]) 18001 EST. PATIENT, LEVEL III Diagnosis: Type 2 diabetes mellitus with hyperglycemia[ICD10: E11.65] Diagnosis: Myalgia[ICD10: M79.1] Diagnosis: Pain in right hip[ICD10: M25.551] Diagnosis: Pain in left hip[ICD10: M25.552] Marcela Ha MD, [facility] CPT-4: 68724 05/13/2018 ([id number]) 20136 EST. PATIENT, LEVEL III Diagnosis: Myalgia[ICD10: M79.1] Diagnosis: Pain in right hip[ICD10: M25.551] Diagnosis: Pain in left hip[ICD10: M25.552] Marcela Ha MD, [facility] CPT-4: 77663 05/02/2018 ([id number]) 23510 EST. PATIENT, LEVEL IV Diagnosis: Essential (primary) hypertension[ICD10: I10] Diagnosis: Type 2 diabetes mellitus with hyperglycemia[ICD10: E11.65] Diagnosis: Major depressive disorder, single episode, moderate[ICD10: F32.1] Diagnosis: Myalgia[ICD10: M79.1] Marcela Ha MD, [facility] CPT-4: 66000 04/29/2018 ([id number]) 63291 EST. PATIENT, LEVEL IV Diagnosis: Type 2 diabetes mellitus with hyperglycemia[ICD10: E11.65] Diagnosis: Essential (primary) hypertension[ICD10: I10] Diagnosis: Major depressive disorder, single episode, moderate[ICD10: F32.1] Melida Ha MD, [facility] CPT-4: 97477 03/13/2018 ([id number]) 03027 EST. PATIENT, LEVEL III Diagnosis: Type 2 diabetes mellitus with hyperglycemia[ICD10: E11.65] Diagnosis: Bipolar disorder, current episode depressed, moderate[ICD10: F31.32] Diagnosis: Orthostatic hypotension[ICD10: I95.1] Marcela Ha MD, [facility] CPT-4: 51497 03/07/2018 ([id number]) 30258 EST. PATIENT, LEVEL IV Diagnosis: Type 2 diabetes mellitus with hyperglycemia[ICD10: E11.65] Diagnosis: Major depressive disorder, single episode, moderate[ICD10: F32.1] Diagnosis: Orthostatic hypotension[ICD10: I95.1] Diagnosis: Other fatigue[ICD10: R53.83] Marcela Ha MD, [facility] CPT-4: 81646 02/28/2018 81238 EST. PATIENT, LEVEL IV Diagnosis: Other fatigue[ICD10: R53.83] Diagnosis: Other malaise[ICD10: R53.81] Diagnosis: Gastro-esophageal reflux disease without esophagitis[ICD10: K21.9] Madeline Ha MD, [facility] CPT-4: 28610 02/13/2018 ([id number]) 13460 EST. PATIENT, LEVEL IV Diagnosis: Type 2 diabetes mellitus with foot ulcer[ICD10: E11.621] Diagnosis: Essential (primary) hypertension[ICD10: I10] Diagnosis: Gastro-esophageal reflux disease without esophagitis[ICD10: K21.9] Marcela Ha MD, [facility] CPT-4: 72692 01/29/2018 46871 EST. PATIENT, LEVEL III Diagnosis: Other malaise[ICD10: R53.81] Diagnosis: Other fatigue[ICD10: R53.83] Diagnosis: Pain in right shoulder[ICD10: M25.511] Diagnosis: Pain in left shoulder[ICD10: M25.512] Madeline Ha MD, [facility] CPT-4: 89078 08/27/2017 ([id number]) 54331 EST. PATIENT, LEVEL IV Diagnosis: Essential (primary) hypertension[ICD10: I10] Diagnosis: Type 2 diabetes mellitus with hyperglycemia[ICD10: E11.65] Diagnosis: VACCIN FOR INFLUENZA[ICD10: Z23] [facility] CPT-4: 98047 08/16/2017 77050 EST. PATIENT, LEVEL III Diagnosis: Zoster without complications[ICD10: B02.9] Madeline Ha MD, [facility] CPT-4: 03961 07/26/2017 ([id number]) 26193 EST. PATIENT, LEVEL III Diagnosis: Cellulitis of right lower limb[ICD10: L03.115] Marcela Ha MD, [facility] CPT-4: 69873 07/03/2017 90298 EST. PATIENT, LEVEL II Diagnosis: Laceration without foreign body of left forearm, initial encounter[ ICD10: S51.812A] Marecla Ha MD [facility] CPT-4: 76868 06/29/2017 ([id number]) 78923 EST. PATIENT, LEVEL III Diagnosis: Cellulitis of right lower limb[ICD10: L03.115] Diagnosis: Type 2 diabetes mellitus with foot ulcer[ICD10: E11.621] Marcela Ha MD [facility] CPT-4: 07799 06/18/2017 ([id number]) 01510 EST. PATIENT, LEVEL IV Diagnosis: Cellulitis of right lower limb[ICD10: L03.115] Diagnosis: Acute laryngopharyngitis[ICD10: J06.0] Diagnosis: Gastro-esophageal reflux disease without esophagitis[ICD10: K21.9] Marcela Ha MD [facility] CPT-4: 09149 06/07/2017 ([id number]) 15144 EST. PATIENT, LEVEL III Diagnosis: Type 2 diabetes mellitus with hyperglycemia[ICD10: E11.65] Diagnosis: Insect bite (nonvenomous) of abdominal wall, initial encounter[ICD10 : S30.861A] Marcela Ha MD [facility] CPT-4: 03165 05/17/2017 ([id number]) 55618 EST. PATIENT, LEVEL III Diagnosis: Allergic contact dermatitis due to plants, except food[ICD10: L23.7] Melida Ha MD [facility] CPT-4: 78915 05/04/2017 ([id number]) 60175 EST. PATIENT, LEVEL III Diagnosis: Essential (primary) hypertension[ICD10: I10] Marcela Ha MD [facility] CPT-4: 99903 03/15/2017 ([id number]) 63279 EST. PATIENT, LEVEL III Diagnosis: Cough[ICD10: R05] Diagnosis: Essential (primary) hypertension[ICD10: I10] Marcela Ha MD [facility] CPT-4: 35813 03/01/2017 ([id number]) 31558 EST. PATIENT, LEVEL III Diagnosis: Cough[ICD10: R05] Diagnosis: Nasal congestion[ICD10: R09.81] Diagnosis: Acute recurrent maxillary sinusitis[ICD10: J01.01] Marcela Ha MD, [facility] CPT-4: 99135 02/16/2017 ([id number]) 47661 EST. PATIENT, LEVEL III Diagnosis: Type 2 diabetes mellitus with hyperglycemia[ICD10: E11.65] Marcela Ha MD [facility] CPT-4: 47406 02/12/2017 ([id number]) 86974 EST. PATIENT, LEVEL IV Diagnosis: Type 2 diabetes mellitus with hyperglycemia[ICD10: E11.65] Diagnosis: Muscle weakness (generalized)[ICD10: M62.81] Diagnosis: Disorientation, unspecified[ICD10: R41.0] Marcela Ha MD, [facility] CPT-4: 02235 02/05/2017 ([id number]) Patient admitted to the hospital from clinic (NO CHARGE) Diagnosis: Type 2 diabetes mellitus with hyperglycemia[ICD10: E11.65] Diagnosis: Disorientation, unspecified[ICD10: R41.0] Diagnosis: Muscle weakness (generalized)[ICD10: M62.81] Marcela Ha MD, [facility] CPT-4: 56682B 01/29/2017 ([id number]) Miscellaneous no charge Diagnosis: Cellulitis of right lower limb[ICD10: L03.115] Marcela Ha MD, [facility] CPT-4: 27316 10/13/2016 ([id number]) Miscellaneous no charge Diagnosis: Type 2 diabetes mellitus with foot ulcer[ICD10: E11.621] Diagnosis: Pain in right foot[ICD10: M79.671] Marcela Ha MD, [facility] CPT-4: 42586 10/09/2016 87697 EST. PATIENT, LEVEL II Diagnosis: Cellulitis of right lower limb[ICD10: L03.115] Marcela Ha MD [facility] CPT-4: 19646 10/06/2016 ([id number]) 67488 EST. PATIENT, LEVEL IV Diagnosis: Low back pain[ICD10: M54.5] Diagnosis: Other deformities of toe(s) (acquired), left foot[ICD10: M20.5X2] Diagnosis: Type 2 diabetes mellitus with foot ulcer[ICD10: E11.621] Marcela Ha MD , [facility] CPT-4: 24091 07/18/2016 ([id number]) 43425 EST. PATIENT, LEVEL III Diagnosis: Type 2 diabetes mellitus with hyperglycemia[ICD10: E11.65] Marcela Ha MD, [facility] CPT-4: 19617 06/22/2016 ([id number]) 73735 EST. PATIENT, LEVEL IV Diagnosis: Type 2 diabetes mellitus with hyperglycemia[ICD10: E11.65] Diagnosis: Mixed hyperlipidemia[ICD10: E78.2] Diagnosis: Other hemoglobinopathies[ICD10: D58.2] Marcela Ha MD, [facility] CPT-4: 37871 05/23/2016 ([id number]) 42772 EST. PATIENT, LEVEL IV Diagnosis: Type 2 diabetes mellitus with other specified complication[ICD10: E11.69] Diagnosis: Dehydration[ICD10: E86.0] Marcela Ha MD, [facility] CPT-4: 80758 05/15/2016 ([id number]) OFFICE VISIT, NEW - LEVEL 3 Diagnosis: Allergic contact dermatitis due to plants, except food[ICD10: L23.7] Madeline Ha MD, [facility] CPT-4: 50073 01/20/2016 Plan of Care Planned Activity Notes Codes Status Date Visit Plan: Sinusitis - Pt has acute infection - pain in face, maxillary region, Pt informed to use decongestant, RX given to patient, sinus rinses also recommended. Call if symptoms do not show improvement. DM- check Hgb A1C 09/09/2018 Patient Education: Patient Medication Summary Completed 09/09/2018 Care Plan: A1C HPLC LOINC : 37288-0 Pending 09/09/2018 Care Plan: LIPID GRP Pending 09/09/2018 Patient Education: Patient Medication Summary Completed 09/06/2018 Patient Education: Cholesterol Management Completed 09/06/2018 Care Plan: Comp Metabolic Pending 09/06/2018 Care Plan: Cbc With Differential Pending 09/06/2018 Care Plan: %Hba1C LOINC : 93698-4 Pending 09/06/2018 Care Plan: Tsh Pending 09/06/2018 Care Plan: Lipid Pending 09/06/2018 Appointment: Marcela Oshea WPtel: [phone] [phone] [place] (15 min) Moderate 08/26/2018 Appointment: Marcela Oshea WPtel: [phone] [phone] (15 min) Moderate 08/23/2018 Visit Plan: Hypertension [...] shot given today in clinic. 07/22/2018 Appointment: eMlida Ha WPtel[facility] (15 min) Moderate 07/22/2018 Patient Education: [...] time insomnia. 07/16/2018 Appointment: Marcela Oshea WPtel: [phone] [place] (30 min) Complex 07/16/2018 Patient Education: Patient Medication Summary Completed 07/16/2018 Visit Plan: cough - improved - notify clinic if symptoms do not completely resolve, or with any questions or concerns. 07/01/2018 Appointment: Madeline Kennedy WPtel: [address] [facility] (15 min) Moderate 07/01/2018 Patient Education: Patient [...] allergy spray. 06/28/2018 Appointment: Madeline Kennedy WPtel: [phone] [facility] [place] (15 min) Moderate 06/28/2018 Patient Education: Patient Medication Summary Completed 06/28/2018 Patient Education: Patient Medication Summary Completed 06/21/2018 Care Plan: Annabel RICKS [place] Pending 06/21/2018 Visit Plan: Diabetes Mellitus - [...] at home. 06/18/2018 Appointment: [facility] [facility] (15 min) Moderate 06/18/2018 Patient Education: Patient [...] swelling improves. 06/04/2018 Appointment: [facility] [facility] (15 min) Moderate 06/04/2018 Patient Education: Patient [...] allow for greater blood glucose control. Joint gezx-zmyhhdke-mhnjcoa- symptoms have improved -stop meloxicam due to upset stomach-call if symptoms return 05/13/2018 Appointment: Marcela Oshea WPtel: [phone] [phone] (30 min) Complex 05/13/2018 Patient Education: Patient Medication Summary Completed 05/13/2018 Visit Plan: Bilateral hip hfgb-qbacvxua-reuezzc IM injection administered today for c/o continued myalgia/arthralgia. Patient to start taking Meloxicam 15mg PO daily. Advised to return to clinic if symptoms do not improve. 05/02/2018 Appointment: Marcela Oshea WPtel: [phone] (30 min) Complex 05/02/2018 Patient Education: Patient [...] readings at home. Diabetes Mellitus -check labs Vzrzyqgx-vvbzexv-pxik bite-rx for doxycycline-follow up in 2 weeks 04/29/2018 Appointment: Marcela Oshea WPtel: [phone] [place] (15 min) Moderate 04/29/2018 Patient Education: Patient Medication Summary Completed 04/29/2018 Appointment: Melida Ha WPtel: [facility] [place] (15 min) Moderate 04/15/2018 Appointment: Marcela Oshea WPtel: [phone] (30 min) Complex 03/21/2018 Visit Plan: Hypertension [...] cymbalta 03/13/2018 Appointment: Melida Ha WPtel: [address] [phone] (30 min) Complex 03/13/2018 Patient Education: Patient Medication Summary Completed 03/13/2018 Visit Plan: DM-continue same medications-monitor blood sugars routinely as directed -rx for new glucometer and test strips provided Bipolar-currently depressed-patient start on vraylar-follow up in 2 weeks, sooner if needed. Patient and verbalied understanding of plan. Hypotension- stay off losartan 03/07/2018 App[facility]ment: [phone] [phone] (30 min) Complex 03/07/2018 Patient Education: Patient Medication Summary Completed 03/07/2018 Appointment: Melida Ha WPtel: [facility] (15 min) Moderate 03/04/2018 Visit Plan: Hypotension-continue [...] patient. 02/28/2018 Appointment: Marcela Oshea WPtel: [phone] [phone] (30 min) Complex 02/28/2018 Patient Education: Patient [...] improving. 02/13/2018 App[facility]ment: [phone] [facility] (15 min) Moderate 02/13/2018 Patient Education: Patient Medication Summary Completed 02/13/2018 Referral: [facility] [place] Patient informed. Referral info faxed. Completed Visit Plan: DM-weight loss-not checking blood sugars- patient sent for labs today HTN-low vnavt-apdwxzs-dvcxv labs Callus of foot and fissue of [...] improving. 01/29/2018 Appointment: Marcela Oshea WPtel: [phone] [phone] [place] (30 min) Complex 01/29/2018 Patient Education: Patient Medication Summary Completed 01/29/2018 Care Plan: Comp Metabolic Cancelled 01/29/2018 Care Plan: Cbc With Differential Cancelled 01/29/2018 Care Plan: %Hba1C LOINC : 75833-8 Cancelled 01/29/2018 Care Plan: Referral Order SNOMED-CT : [id number] Cancelled 01/29/2018 Visit Plan: Fatigue, malaise, joint [...] or concerns. 08/27/2017 Appointment: [phone] [facility] (15 min) Moderate 08/27/2017 Patient Education: Patient [...] - 08/16/2017 Appointment: [phone] [facility] [place] (30 min) Complex 08/16/2017 Patient Education: Patient Medication Summary Completed 08/16/2017 Patient Education: Obesity Completed 08/16/2017 App[facility]ment: [phone] [facility] (30 min) Complex 08/07/2017 Visit Plan: Shingles [...] contagious. 07/26/2017 Appointment: Madeline Kennedy WPtel: [phone] [phone] (15 min) Moderate 07/26/2017 Patient Education: Patient Medication Summary Completed 07/26/2017 Visit Plan: Cellulitis right foot-cultured today in the office-home health to reapply wound vac--appt with wound care on to evaluate for debridement- 07/03/2017 Appointment: Marcela Oshea WPtel: [phone] [phone] (30 min) Complex 07/03/2017 Patient Education: Patient Medication Summary Completed 07/03/2017 Visit Plan: Abrasion left arm - Pt was instructed to keep the wound clean, wash with antibacterial soap, use triple antibiotic ointment, call if redness, pustular drainage, or any other acute concerns. 06/29/2017 Appointment: Marcela Oshea WPtel: [phone] [phone] (15 min) Moderate 06/29/2017 Patient Education: Patient [...] of plan. 06/18/2017 Appointment: Marcela Oshea WPtel: [phone] [phone] (15 min) Moderate 06/18/2017 Patient Education: Patient [...] diet-start prilosec 06/07/2017 Appointment: Marcela Oshea WPtel: [facility]2 [phone] (10 min) Simple 06/07/2017 Patient Education: Patient [...] bite-continue doxycycline 05/17/2017 Appointment: Marcela Oshea WPtel: [phone] (30 min) Complex 05/17/2017 Patient Education: Patient [...] if you want anai edge called into [facility]. 05/04/2017 Appointment: Marcela Oshea WPtel: [facility]5 [phone] (30 min) Complex 05/04/2017 Patient Education: Patient [...] home. Cough-resolved 03/15/2017 Appointment: Marcela Oshea WPtel: [facility]4 [phone] (15 min) Moderate 03/15/2017 Patient Education: Patient Medication Summary Completed 03/15/2017 Appointment: Marcela Oshea WPtel: [facility]3 [facility] [place] [address] (30 min) Complex 03/12/2017 Visit Plan: Feng [...] as discussed 02/16/2017 Appointment: Marcela Oshea WPtel: [phone] (15 min) Moderate 02/16/2017 Patient Education: Patient [...] less controlled. 02/12/2017 Appointment: Marcela Oshea WPtel: [phone] [phone] (30 min) Complex 02/12/2017 Patient Education: Patient Medication Summary Completed 02/12/2017 Appointment: Marcela Oshea WPtel: [phone] [phone] (30 min) Complex 02/06/2017 Visit Plan: Diabetes [...] consider 02/05/2017 Appointment: [facility] [phone] [phone] (30 min) Complex 02/05/2017 Patient Education: Patient Medication Summary Completed 02/05/2017 Appointment: Marcela Oshea WPtel: [phone] (30 min) Complex 01/30/2017 Visit Plan: Acute confusion-uncontrolled diabetes- chronically noncompliant with treatment and stopped his insulin several months ago-r/o stroke vs DKA-Dr Ha in to evaluate patient-plan to admit for further work up and treatment-patient's called and she transported him to the hospital 01/29/2017 Appointment: Marcela Oshea WPtel: [phone] [phone] (30 min) Complex 01/29/2017 Patient Education: Patient Medication Summary Completed 01/29/2017 Patient Education: Obesity Completed 01/29/2017 Visit Plan: Right foot pain-MRI shows foreign body-appt with Dr Grewal for evaluation on Sunday. 10/13/2016 Appointment: Marcela Oshea WPtel: [address] [place], [place] [phone] [place] (15 min) Moderate 10/13/2016 Patient Education: Patient Medication Summary Completed 10/13/2016 Appointment: Marcela Oshea WPtel: [address] [place], [place] [phone] [place] (30 min) Complex 10/12/2016 Visit Plan: Right foot mqai-nhibkqty-cdynp washer dropped on foot-xray negative but pain continues to increase-recommend MRI of foot for further evaluation-refer to wound care for lesions on right foot, patient has diabetes and history of osteomyelitis-culture obtained today-continue oral abx- follow up in the office on , sooner if needed 10/09/2016 Visit Plan: Right foot wlxj-jugszppi-ggarm washer dropped on foot-xray negative but pain continues to increase-recommend MRI of foot for further evaluation-refer to wound care for lesions on right foot, patient has diabetes and history of osteomyelitis-culture obtained today-continue oral abx- follow up in the office on , sooner if needed 10/09/2016 Visit Plan: Right foot cnwk-yfptzfgb-pdfck washer dropped on foot-xray negative but pain continues to increase-recommend MRI of foot for further evaluation-refer to wound care for lesions on right foot, patient has diabetes and history of osteomyelitis-culture obtained today-continue oral abx- follow up in the office on , sooner if needed 10/09/2016 Appointment: Marcela Oshea WPtel: [address] [place], [place] [phone] [place] (30 min) Complex 10/09/2016 Patient Education: Patient Medication Summary Completed 10/09/2016 Visit Plan: Cellulitis - continue with oral antibiotics as previously directed, return to clinic as previously directed, call for acute change in symptoms, worsening redness, warmth, discharge. 10/06/2016 Appointment: Marcela Oshea WPtel: [address] [place], [place] [phone] [place] (10 min) Simple 10/06/2016 Patient Education: Patient Medication Summary Completed 10/06/2016 Appointment: Marcela Oshea WPtel: [address] [place], [place] [phone] (30 min) Complex 08/24/2016 Referral: [facility] Referral Completed 07/21/2016 Visit Plan: Low back pain- history of spinal fusion- patient for xray lumbar spine-RX sent to [facility] and instructed on use-topical voltaren samples provided and instructed on use. Ok to use tylenol as needed as well. The patient is to call the office if the pain is worsening or does not improve. Pressure ulcer left 4th toe-refer to Dr Glynn for evaluation 07/18/2016 Appointment: Marcela Oshea WPtel: [phone] (30 min) Complex 07/18/2016 Patient Education: Patient Medication Summary Completed 07/18/2016 Patient Education: Obesity Completed 07/18/2016 Care Plan: Referral Order SNOMED-CT : [id number] Cancelled 07/18/2016 Visit Plan: Diabetes Mellitus - [...] glucose control. 06/22/2016 Appointment: Marcela Oshea WPtel: [phone] [facility] Complex 06/22/2016 Patient Education: Patient [...] CBC today 05/23/2016 Appointment: [phone] (30 min) Complex 05/23/2016 Patient Education: Patient [...] plan. 05/15/2016 Appointment: [phone] (15 min) Moderate 05/15/2016 Patient Education: Patient [...] calamine as directed-call if you want blue rosieo called into [facility]. 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 Low back pain- history of spinal fusion-patient for xray lumbar spine-RX sent to [facility] and instructed on use-topical voltaren [...] for fracture from injury . Right foot isnt-vzdsdpmt-mjent washer dropped on foot-xray negative but pain [...] for fracture from injury . Right foot enkt-rkarilss-vsflu washer dropped on foot-xray negative but pain [...] for fracture from injury . Right foot fchy-dsibaanw-prxxj washer dropped on foot-xray negative but pain continues to increase-recommend MRI of foot for further evaluation-refer to wound care for lesions on right foot, patient has diabetes and history of osteomyelitis-culture obtained today-continue oral abx-follow up in the office on , sooner if needed . Bilateral hip bavz-bkyluyhs-kbochex IM injection administered today for c/o continued myalgia/arthralgia. Patient to start taking Meloxicam 15mg PO daily. Advised to return to clinic if symptoms do not improve. . DM-weight loss-not checking blood sugars-patient sent for labs today HTN-low meigf-iozqnjk-phhly labs Callus of foot and fissue of [...] readings are starting to become less controlled. Ubkwewckj-mkshjqqp-rgoxogne to monitor Generalized weakness-refer for PT-patient refuses [...] allow for greater blood glucose control. Joint uhnn-ktbfobyl-iwwfqhe-symptoms have improved -stop meloxicam due to upset [...] readings at home. Diabetes Mellitus -check labs Mdfiamhq-prwvnsu-unjs bite-rx for doxycycline-follow up in 2 weeks [...] not show improvement. DM-check Hgb A1C . Poison Jana - pt is to [...]
--- OUTSIDE RECORDS SUMMARY | 2018-10-20 11:07 | XMS REPORT | CCD ---
Author Author Madeline Kennedy MD, [facility] Address [address] [place] [address] Phone Care Team Providers Care Sports Medicine Specialist Name Role Phone PP Unavailable CCM Unavailable Summary Purpose Interface Exchange Insurance Providers Payer name Policy type / Coverage type Covered green party ID Effective Begin Date Effective End Date Blue Cross Blue Shield [facility] [employer]/Blue Shield [id number] Unknown Family history Father Diagnosis Age At Onset Hyperlipidemia Unknown Heart Attack Unknown Mother Diagnosis Age At Onset Hypertension Unknown Social History Social History Element Codes Description Effective Dates Marital status Unknown Mignon 01/20/2016 Number of children Unknown 4 01/20/2016 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/[address]: 272570284 Never smoker 01/20/[address]: 452573909 Never drinks alcohol 01/20/2016 Allergies, Adverse Reactions, Alerts Substance Reaction Codes Entered Date Inactivated Date Status * NO KNOWN DRUG ALLERGIES Unknown 05/23/2016 No Inactive Date Active Past Medical History Illness Codes Condition Status Onset Date Resolved Date Essential (primary) hypertension ICD-9: 401.1 ICD-10: I10 Active 03/01/2017 Unknown Mixed hyperlipidemia ICD-9: 272.2 ICD-10: E78.2 Active 05/22/2016 Unknown Type 2 diabetes mellitus with hyperglycemia ICD-9: 250.00 ICD-10: E11.65 Active 06/21/2016 Unknown Bipolar disorder, current episode depressed, moderate ICD-9: 296.52 ICD-10: F31.32 Active 03/07/2018 Unknown Type 2 diabetes mellitus with other specified complication ICD-9: 250.80 ICD-10: E11.69 Active 05/14/2016 Unknown VACCIN FOR INFLUENZA ICD-9: V04.81 ICD-10: Z23 Active 08/16/2017 Unknown Insomnia due to medical condition ICD-9: 327.01 ICD-10: G47.01 Active 07/16/2018 Unknown Cough ICD-9: 786.2 ICD-10: R05 Active [...] ICD-9: 692.6 ICD-10: L23.7 Active 01/19/2016 Unknown Acute recurrent maxillary sinusitis ICD-9: 461.0 [...] Problems Condition Codes Effective Dates Condition Status Essential (primary) hypertension ICD-9: 401.1 ICD-10: I10 03/01/2017 Active Mixed hyperlipidemia ICD-9: 272.2 ICD-10: E78.2 05/22/2016 Active Type 2 diabetes mellitus with hyperglycemia ICD-9: 250.00 ICD-10: E11.65 06/21/2016 Active Bipolar disorder, current episode depressed, moderate ICD-9: 296.52 ICD-10: F31.32 03/07/2018 Active Type 2 diabetes mellitus with other specified complication ICD-9: 250.80 ICD-10: E11.69 05/14/2016 Active VACCIN FOR INFLUENZA ICD-9: V04.81 ICD-10: Z23 08/16/2017 Active Insomnia due to medical condition ICD-9: 327.01 ICD-10: G47.01 07/16/2018 Active Cough ICD-9: 786.2 ICD-10: R05 02/16/2017 [...] food ICD-9: 692.6 ICD-10: L23.7 01/19/2016 Active Acute recurrent maxillary sinusitis ICD-9: 461.0 [...] Start Date Stop Date Status Fill Instructions Tresiba FlexTouch U-200 insulin 200 unit/mL (3 mL) subcutaneous pen RxNorm: 5578002 50 Unit(s) SQ daily 08/30/2018 09/28/2018 Active please give him 30 day supply Tresiba FlexTouch U-200 insulin 200 unit/mL (3 mL) subcutaneous pen RxNorm: 9512553 50 Unit(s) SQ daily 08/30/2018 08/29/2018 Inactive please give him 30 day supply Novolog Flexpen U-100 Insulin aspart 100 unit/mL subcutaneous RxNorm: 8923625 8 Unit(s) SQ AC 08/13/2018 No Stop Date Active Novolog Flexpen U-100 Insulin aspart 100 unit/mL subcutaneous RxNorm: 3032692 8 Unit(s) SQ AC 07/22/20182017 Inactive this is an update on his medication Novolog Flexpen U-100 Insulin aspart 100 unit/mL subcutaneous RxNorm: 1902494 12 Unit(s) SQ AC 07/05/20182017 Inactive this is an update on his medication Toujeo SoloStar U-300 Insulin 300 unit/mL (1.5 mL) subcutaneous pen RxNorm: 7068248 INJECT 50 UNITS UNDER THE SKIN DAILY 07/01/2018 08/29/2018 Inactive Mucinex 600 mg tablet, extended release RxNorm: 123028 1 Tablet(s) PO BID 06/28/2018 07/04/2018 Inactive Zofran 4 mg tablet RxNorm: 058631 1 Tablet(s) PO TID as needed nausea 06/28/2018 07/02/2018 Inactive Kenalog 40 mg/mL suspension for injection RxNorm: 6255180 Milliliter(s) Inj 06/28/2018 06/28/2018 Inactive Flonase Allergy Relief 50 mcg/actuation nasal spray, suspension RxNorm: 4001381 1 [place] NASAL BID 06/28/20182017 Inactive Lyrica 50 mg capsule RxNorm: 470552 Capsule(s) PO daily 201707/07/2018 Inactive Novolog Flexpen U-100 Insulin aspart 100 unit/mL subcutaneous RxNorm: 4673971 10 Unit(s) SQ AC 06/18/20182017 Inactive this is an update on his medication Lasix 20 mg tablet RxNorm: 082724 1 Tablet(s) PO BIW 201707/02/2018 Inactive atorvastatin 80 mg tablet RxNorm: 808683 1 Tablet(s) PO QHS 04/201812/06/2018 Active clonazepam 1 mg tablet RxNorm: 072043 2 Tablet(s) PO HS 201706/04/2019 Active clonazepam 1 mg tablet RxNorm: 771383 2 Tablet(s) PO HS as needed 06/10/2018 06/09/2018 Inactive Lyrica 50 mg capsule RxNorm: 390691 Capsule(s) PO daily 201707/08/2018 Inactive Lasix 20 mg tablet RxNorm: 831314 1 Tablet(s) PO TIW 201706/11/2018 Inactive Toujeo SoloStar U-300 Insulin 300 unit/mL (1.5 mL) subcutaneous pen RxNorm: 6406967 50 Unit(s) SQ daily 05/07/2018 06/30/2018 Inactive meloxicam 15 mg tablet RxNorm: 641266 15 Milligram(s) PO daily 05/02/2018 05/12/2018 Inactive ketorolac 30 mg/mL injection solution RxNorm: 657186 2 Milliliter(s) Inj 05/02/2018 05/02/2018 Inactive Toujeo SoloStar U-300 Insulin 300 unit/mL (1.5 mL) subcutaneous pen RxNorm: 9086145 45 Unit(s) daily 04/29/2018 Inactive clonazepam 1 mg tablet RxNorm: 948799 1 Tablet(s) PO Q8 as needed 04/29/2018 06/09/2018 Inactive doxycycline hyclate 100 mg tablet RxNorm: 9610900 1 Tablet(s) PO BID 04/29/2018 05/12/2018 Inactive Cymbalta 30 mg capsule,delayed release RxNorm: 863235 1 Capsule(s) PO QAM 03/13/2018 10/08/2018 Active Lexapro 10 mg tablet RxNorm: 192580 1 Tablet(s) PO QPM 201703/03/2018 Inactive Toujeo SoloStar U-300 Insulin 300 unit/mL (1.5 mL) subcutaneous pen RxNorm: 2175435 20 Unit(s) daily 02/28/2018 Inactive Protonix 40 mg tablet,delayed release RxNorm: 985952 1 Tablet(s) PO daily 01/29/2018 06/09/2018 Inactive clonazepam 1 mg tablet RxNorm: 769565 1 Tablet(s) PO Q8 as needed 12/12/2017 03/10/2018 Inactive Tamiflu 75 mg capsule RxNorm: 573641 1 Capsule(s) PO BID 201712/03/2017 Inactive doxycycline hyclate 100 mg capsule RxNorm: 1137777 1 Capsule(s) PO BID 09/07/2017 09/20/2017 Inactive doxycycline hyclate 100 mg capsule RxNorm: 7930801 1 Capsule(s) PO BID 08/27/2017 09/06/2017 Inactive prednisone 20 mg tablet RxNorm: 845525 2 Tablet(s) PO daily 08/31/2017 Inactive clopidogrel 75 mg tablet RxNorm: 764778 1 Tablet(s) PO daily 06/09/2018 Inactive atorvastatin 40 mg tablet RxNorm: 742943 1 Tablet(s) PO QHS 02/27/2018 Inactive losartan 25 mg tablet RxNorm: 788024 TAKE ONE TABLET BY MOUTH DAILY 08/22/2017 06/09/2018 Inactive Toujeo SoloStar 300 unit/mL (1.5 mL) subcutaneous insulin pen RxNorm: 7454025 45 Unit(s) daily 08/17/2017 08/20/2017 Inactive mupirocin 2 % topical ointment RxNorm: 494476 1 Application TOP TID to the lesions on chest 08/16/2017 08/25/2017 Inactive Toujeo SoloStar 300 unit/mL (1.5 mL) subcutaneous insulin pen RxNorm: 7556302 40 Unit(s) daily 08/16/2017 08/16/2017 Inactive valacyclovir 1 gram tablet RxNorm: 570891 1 Tablet(s) PO TID 08/01/2017 Inactive clonazepam 1 mg tablet RxNorm: 586082 1 Tablet(s) PO Q8 as needed 07/03/2017 09/30/2017 Inactive Levaquin 500 mg tablet RxNorm: 239270 1 Tablet(s) PO daily 06/25/2017 Inactive Levaquin 500 mg tablet RxNorm: 366507 1 Tablet(s) PO daily 06/21/2017 Inactive losartan 25 mg tablet RxNorm: 884000 1 Tablet(s) PO daily 201608/16/2017 Inactive nystatin 100,000 unit/mL oral suspension RxNorm: 615087 5 Milliliter(s) PO QID Swish et swallow 06/18/2017 06/17/2017 Inactive nystatin 100,000 unit/mL oral suspension RxNorm: 369387 5 Milliliter(s) PO QID Swish et swallow 06/18/2017 06/27/2017 Inactive Cipro 500 mg tablet RxNorm: 078481 1 Tablet(s) PO BID 201606/18/2017 Inactive Cipro 500 mg tablet RxNorm: 557757 1 Tablet(s) PO BID 201606/11/2017 Inactive Toujeo SoloStar 300 unit/mL (1.5 mL) subcutaneous insulin pen RxNorm: 8630331 INJECT 10 UNITS UNDER THE SKIN DAILY 06/12/2017 08/15/2017 Inactive Keflex 500 mg capsule RxNorm: 161895 1 Capsule(s) PO TID 201606/13/2017 Inactive doxycycline hyclate 100 mg capsule RxNorm: 3318703 1 Capsule(s) PO BID 05/17/2017 05/21/2017 Inactive doxycycline hyclate 100 mg capsule RxNorm: 6733599 1 Capsule(s) PO BID 05/11/2017 05/16/2017 Inactive losartan 25 mg tablet RxNorm: 944831 1 Tablet(s) PO daily 201606/17/2017 Inactive atorvastatin 40 mg tablet RxNorm: 818585 1 Tablet(s) PO daily 03/01/2017 08/23/2017 Inactive clopidogrel 75 mg tablet RxNorm: 600083 1 Tablet(s) PO daily 08/23/2017 Inactive Flonase Allergy Relief 50 mcg/actuation nasal spray, suspension RxNorm: 7577891 2 [place] NASAL daily 02/16/20172016 Inactive Augmentin 875 mg-125 mg tablet RxNorm: 211279 1 Tablet(s) PO BID 02/16/2017 02/22/2017 Inactive GET PROBIOTIC TO TAKE WHILE ON ABX Tamiflu 75 mg capsule RxNorm: 409721 1 Capsule(s) PO BID 201602/20/2017 Inactive ceftriaxone 500 mg solution for injection RxNorm: 9374429 1 Milliliter(s) Inj 02/16/2017 02/16/2017 Inactive Kenalog 40 mg/mL suspension for injection RxNorm: 4889850 1 Milliliter(s) Inj 02/16/2017 02/16/2017 Inactive Toujeo SoloStar 300 unit/mL (1.5 mL) subcutaneous insulin pen RxNorm: 3205830 25 Unit(s) SQ QAM 02/12/2017 06/10/2017 Inactive Toujeo SoloStar 300 unit/mL (1.5 mL) subcutaneous insulin pen RxNorm: 4378380 10 Unit(s) SQ QAM 02/05/2017 02/11/2017 Inactive lisinopril 10 mg tablet RxNorm: 549114 1 Tablet(s) PO daily 02/28/2017 Inactive atorvastatin 40 mg tablet RxNorm: 669079 1 Tablet(s) PO daily 02/01/2017 02/28/2017 Inactive doxycycline hyclate 100 mg capsule RxNorm: 3303785 1 Capsule(s) PO BID 02/01/2017 02/10/2017 Inactive clonazepam 1 mg tablet RxNorm: 182037 1 Tablet(s) PO Q8 as needed 10/09/2016 01/05/2017 Inactive ceftriaxone 1 gram solution for injection RxNorm: 3860589 Inj 10/06/2016 10/06/2016 Inactive cyclobenzaprine 10 mg tablet RxNorm: 451882 1/2-1 Tablet(s) PO TID PRN 07/18/2016 01/28/2017 Inactive clonazepam 1 mg tablet RxNorm: 187567 1 Tablet(s) PO Q8 as needed 05/31/2016 05/29/2016 Inactive clonazepam 1 mg tablet RxNorm: 856239 1 Tablet(s) PO Q8 as needed 05/31/2016 08/28/2016 Inactive Toujeo SoloStar 300 unit/mL (1.5 mL) subcutaneous insulin pen RxNorm: 5828861 10 Unit(s) SQ daily 05/23/2016 01/28/2017 Inactive Crestor 10 mg tablet RxNorm: 960627 1 Tablet(s) PO QHS 201501/28/2017 Inactive Crestor 10 mg tablet RxNorm: 258951 1 Tablet(s) PO QHS 201505/18/2016 Inactive clonazepam 1 mg tablet RxNorm: 724298 1 Tablet(s) PO Q8 as needed 04/25/2016 05/30/2016 Inactive prednisone 20 mg tablet RxNorm: 214209 3 Tablet(s) PO daily 06/201602/10/2016 Inactive prednisone 20 mg tablet RxNorm: 508075 3 Tablet(s) PO daily 06/201605/14/2016 Inactive Kenalog 40 mg/mL suspension for injection RxNorm: 2619282 Milliliter(s) Inj 01/20/2016 01/20/2016 Inactive aspirin 81 mg tablet,delayed release RxNorm: 631235 1 Tablet(s) PO daily No Start Date Active Brilinta 90 mg tablet RxNorm: 4896243 1 Tablet(s) PO BID No Start Date Active Coreg 6.25 mg tablet RxNorm: 297074 1 Tablet(s) PO BID No Start Date Active acetaminophen 500 mg tablet RxNorm: 606439 1-2 Tablet(s) PO as needed No Start Date Active clopidogrel 75 mg tablet RxNorm: 348856 1 Tablet(s) PO daily No Start Date 02/28/2017 Inactive Novolog Flexpen U-100 Insulin aspart 100 unit/mL subcutaneous RxNorm: 5105855 5 units with breakfast lunch and 10 supper Unit(s) SQ No Start Date 06/17/2018 Inactive clonazepam 1 mg tablet RxNorm: 576077 1 Tablet(s) PO QHS No Start Date 04/24/2016 Inactive acyclovir 400 mg tablet RxNorm: 537121 2 Tablet(s) PO 5x daily No Start Date 02/28/2017 Inactive Lyrica 50 mg capsule RxNorm: 496833 Capsule(s) PO BID No Start Date 06/09/2018 Inactive Vraylar 3 mg capsule RxNorm: 2420041 1 Capsule(s) PO daily No Start Date 03/12/2018 Inactive Medication Administered Medication Codes Instructions Start Date Status Kenalog 40 mg/mL suspension for injection RxNorm: 0095209 Milliliter 06/28/2018 No longer Active ketorolac 30 mg/mL injection solution RxNorm: 389916 2Milliliter 05/02/2018 No longer Active ceftriaxone 500 mg solution for injection RxNorm: 5242736 1Millil[place] 02/16/2017 No longer Active Kenalog 40 mg/mL suspension for injection RxNorm: 9047082 1Millil[place] 02/16/2017 No longer Active ceftriaxone 1 gram solution for injection RxNorm: 3848422 10/06/2016 No longer Active Kenalog 40 mg/mL suspension for injection RxNorm: 3725809 Millil[place] 01/20/2016 No longer Active Immunizations Vaccine Codes Date Status Influenza CVX: 141 07/22/2018 completed Influenza CVX: 141 08/16/2017 completed Assessments Condition Codes Effective Dates Mixed hyperlipidemia ICD-10: E78.2 ICD-9: 272.2 09/06/2018 Type 2 diabetes mellitus with hyperglycemia ICD-10: E11.65 ICD-9: 250.00 09/06/2018 Essential (primary) hypertension ICD-10: I10 ICD-9: 401.1 09/06/2018 Bipolar disorder, current episode depressed, moderate ICD-10 : F31.32 ICD-9: 296.52 07/22/2018 VACCIN FOR INFLUENZA ICD-10: Z23 ICD-9: V04.81 07/22/2018 Type 2 diabetes mellitus with other specified complication ICD-10: E11.69 ICD-9: 250.80 07/22/2018 Insomnia due to medical condition ICD-10: G47.01 ICD-9: 327.01 07/16/2018 Cough ICD-10: R05 ICD-9: 786.2 07/01/2018 Other allergic rhinitis ICD-10: J30.89 ICD-9: 477.8 [...] food ICD- 10: L23.7 ICD-9: 692.6 05/04/2017 Acute recurrent maxillary sinusitis ICD-10: J01.01 ICD-9: [...] Visit Reason For Visit Effective Dates Notes diabetes mellitus 07/22/2018 insomnia 07/16/2018 cough 07/01/2018 [...] Item Code Result Date C Diff An [id number] [facility] TNP:Lab Request 06/22/2018 C Diff An [id number] Toxin A/B TNP:Lab Request 06/22/2018 C Diff An [id number] C Diff Analyzer TNP:Lab Request 2017 C Diff An [id number] IC OK? TNP:Lab Request 06/22/2018 CBC 1946776 WBC 6.4 10e9/L 05/02/2018 CBC 0275854 RBC 5.60 10e12/L 05/02/2018 CBC 0383355 HEMOGLOBIN 17.0 g/dL 05/02/2018 CBC 1536536 HEMATOCRIT 48.0 % 05/02/2018 CBC 2080110 MCV 85.7 fL 05/02/2018 CBC 0991380 MCH 30.4 pg 05/02/2018 CBC 8893617 MCHC 35.4 g/dL 05/02/2018 CBC 5791105 PLATELET COUNT 166 10e9/L 05/02/2018 CBC 7912742 Mean Plt Volume 11.6 fL 05/02/2018 CBC 0006398 Neut Auto 48.6 % 05/02/2018 CBC 6868243 Lymph Auto 41.7 % 05/02/2018 CBC 2737030 [place] Auto 8.1 % 05/02/2018 CBC 5757009 Eos Auto 1.1 % 05/02/2018 CBC 4632963 RDW 13.1 % 05/02/2018 CBC 3730793 Baso Auto 0.5 % 05/02/2018 CBC 9102567 Neutrophil Abs 3.11 10e9/L 05/02/2018 CBC 6718650 Lymphocyte Abs 2.67 10e9/L 05/02/2018 CBC 1706094 Monocyte Abs 0.52 10e9/L 05/02/2018 CBC 7527186 Eosinophil Abs 0.07 10e9/L 05/02/2018 CBC 8838422 Basophil Abs 0.03 10e9/L 05/02/2018 CBC 1476485 RDW-SD 40.0 fL 05/02/2018 CHEM 14 6333958 AST 17 U/L 05/02/2018 CHEM 14 2508326 ALT 17 U/L 05/02/2018 CHEM 14 4220032 BUN 17 mg/dL 05/02/2018 CHEM 14 5603686 ALBUMIN 4.0 g/dL 05/02/2018 CHEM 14 8630643 CHLORIDE 97 mmol/L 05/02/2018 CHEM 14 5887960 Bili Total 0.9 mg/dL 05/02/2018 CHEM 14 1918898 ALK PHOS 67 U/L 05/02/2018 CHEM 14 2207763 SODIUM 135 mmol/L 05/02/2018 CHEM 14 3606082 CREATININE 1.18 mg/dL 05/02/2018 CHEM 14 6585024 CALCIUM 9.4 mg/dL 05/02/2018 CHEM 14 1868615 POTASSIUM 4.4 mmol/L 05/02/2018 CHEM 14 8839059 TOTAL PROTEIN 6.9 g/dL 05/02/2018 CHEM 14 1709902 GLUCOSE 316 mg/dL 05/02/2018 CHEM 14 4363779 Bicarbonate 29 mmol/L 05/02/2018 CHEM 14 9828548 AGAP 9 mmol/L 05/02/2018 MEAN GLUC 6833523 Calc Mean Gluc 283 mg/dL 05/02/2018 A1C HPLC 4215810 Hgb A1c 10467-9 11.5 % 05/02/2018 GFR CALC 9137559 GFR Non Afr Amr >60 mL/min 05/02/2018 GFR CALC 9521449 GFR Afr Amr >60 mL/min 05/02/2018 JIC Gold 3234792 JIC Gold Complete 02/28/2018 GFR CALC 0263109 GFR Non Afr Amr >60 mL/min 02/28/2018 GFR CALC 8635406 GFR Afr Amr >60 mL/min 02/28/2018 UA W/CII 5978300 UA Urine Appear Normal 02/28/2018 UA W/CII 5052969 UA Protein 1+ 02/28/2018 UA W/CII 9535656 UA Hemoglobin Negative 02/28/2018 UA W/CII 6810962 UA Glucose 4+ 02/28/2018 UA W/CII 8194378 UA Ketones Trace 02/28/2018 UA W/CII 1045846 UA pH 5.5 02/28/2018 UA W/CII 2433003 U Spec [place] 1.015 02/28/2018 UA W/CII 5941717 UA Bilirubin Negative 02/28/2018 UA W/CII 8544802 UA Nitrite NEG 02/28/2018 UA W/CII 3724060 UA Leuk Esteras Negative 02/28/2018 MICR 9493876 UA WBC/hpf 1 02/28/2018 MICR 5483797 UA RBC hpf 2 02/28/2018 MICR 4660770 UA WBC auto 3.8 /uL 02/28/2018 MICR 7163836 UA RBC auto 12.2 /uL 02/28/2018 MICR 7051489 UA SQ EPI auto 2.3 /uL 02/28/2018 MICR 6193406 UA H Cast auto 0.10 /uL 02/28/2018 CBC 2714738 WBC 6.4 10e9/L 02/28/2018 CBC 4658132 RBC 5.51 10e12/L 02/28/2018 CBC 1681712 HEMOGLOBIN 16.7 g/dL 02/28/2018 CBC 5798966 HEMATOCRIT 46.9 % 02/28/2018 CBC 8493285 MCV 85.1 fL 02/28/2018 CBC 2406353 MCH 30.3 pg 02/28/2018 CBC 4564980 MCHC 35.6 g/dL 02/28/2018 CBC 1500311 PLATELET COUNT 173 10e9/L 02/28/2018 CBC 3385411 Mean Plt Volume 11.6 fL 02/28/2018 CBC 0794128 Neut Auto 51.8 % 02/28/2018 CBC 0934646 Lymph Auto 39.9 % 02/28/2018 CBC 1013515 [place] Auto 7.3 % 02/28/2018 CBC 0574357 RDW 13.3 % 02/28/2018 CBC 0382574 Eos Auto 0.8 % 02/28/2018 CBC 1298131 Baso Auto 0.2 % 02/28/2018 CBC 9480429 Neutrophil Abs 3.32 10e9/L 02/28/2018 CBC 1402050 Lymphocyte Abs 2.55 10e9/L 02/28/2018 CBC 9380978 Monocyte Abs 0.47 10e9/L 02/28/2018 CBC 5169651 Eosinophil Abs 0.05 10e9/L 02/28/2018 CBC 3826712 RDW-SD 40.8 fL 02/28/2018 CBC 3113999 Basophil Abs 0.01 10e9/L 02/28/2018 CHEM 14 1332144 AST 17 U/L 02/28/2018 CHEM 14 5266255 ALT 17 U/L 02/28/2018 CHEM 14 0014287 BUN 20 mg/dL 02/28/2018 CHEM 14 0412300 ALBUMIN 4.1 g/dL 02/28/2018 CHEM 14 9097543 CHLORIDE 97 mmol/L 02/28/2018 CHEM 14 8073277 Bili Total 1.3 mg/dL 02/28/2018 CHEM 14 8116078 ALK PHOS 78 U/L 02/28/2018 CHEM 14 1644911 SODIUM 135 mmol/L 02/28/2018 CHEM 14 2768493 CREATININE 1.09 mg/dL 02/28/2018 CHEM 14 2999532 CALCIUM 9.6 mg/dL 02/28/2018 CHEM 14 0162440 POTASSIUM 3.8 mmol/L 02/28/2018 CHEM 14 3979755 TOTAL PROTEIN 7.3 g/dL 02/28/2018 CHEM 14 1511505 GLUCOSE 349 mg/dL 02/28/2018 CHEM 14 7048223 Bicarbonate 29 mmol/L 02/28/2018 CHEM 14 8064545 AGAP 9 mmol/L 02/28/2018 Fei [place] Spot'D Fev Igg 357607 RMSF, IGG -TITER IFA <1:64 11/2016 [place] Spotted Fever Igg/Igm 047888 FEI [place] SPOTTED FEVER IGM EIA . 09/05/2017 [place] Spotted Fever Igg/Igm 794104 RMSF, IGM 0.17 index 09/05/2017 [place] Spotted Fever Igg/Igm 532525 FEI MT SPOTTED FEVER IGG EIA FLEX . 09/05/2017 [place] Spotted Fever Igg/Igm 264946 RMSF, IGG SCREEN-FLEX Positive 09/05/2017 Ehrlichia Chaffeensis Antibody Igm 518078 EHRLICHIA CHAFFEENSIS IGM < 1:16 09/03/2017 Ehrlichia [place]affeensis Antibody Igg 211091 EHRLICHIA CHAFFEENSIS IGG <1:64 09/03/2017 Lymes Disease Total Antibodies With Western Blot Reflex B. BURGDORFERI, IGG/IGM 0.223 08/30/2017 Lymes Disease Total Antibodies With Western Blot Reflex C-Reactive Protein Qnt Crqnt CRP 0.00 mg/dl 08/27/2017 Sed Rate Ord21 ESR 8 mm/hr 08/27/2017 Comp Metabolic Ard665 NA 135 mEq/L 08/16/2017 Comp Metabolic Exv654 K 4.1 mEq/L 08/16/2017 Comp Metabolic Moe720 CL 98 mEq/L 08/16/2017 Comp Metabolic Qbz022 CO2 28.0 mEq/L 08/16/2017 Comp Metabolic Hmp091 ANION GAP 13 08/16/2017 Comp Metabolic Nbj598 GLUCOSE 299 mg/dL 08/16/2017 Comp Metabolic Hqz293 Creat 0.9 mg/dL 08/16/2017 Comp Metabolic Bpq930 eGFR 90 ml/min/1.73m2 08/16/2017 Comp Metabolic Hbq473 BUN 20 mg/dL 08/16/2017 Comp Metabolic Kyh846 B/C Ratio 21.5 Ratio 08/16/2017 Comp Metabolic Wao230 CALCIUM 9.2 mg/dL 08/16/2017 Comp Metabolic Cqk582 ALK PHOS 84 U/L 08/16/2017 Comp Metabolic Xvp770 AST(SGOT) 19 U/L 08/16/2017 Comp Metabolic Suk297 ALT(SGPT) 24 U/L 08/16/2017 Comp Metabolic Ruy848 BILI T 1.1 mg/dL 08/16/2017 Comp Metabolic Gae235 ALBUMIN 4.2 g/dL 08/16/2017 Comp Metabolic Kfx843 TPRO 7.2 g/dL 08/16/2017 Comp Metabolic Iwj171 GLOB 3.0 g/dL 08/16/2017 Comp Metabolic Zfd528 A/G Ratio 1.4 Ratio 08/16/2017 Comp Metabolic Jnk120 Osmo 284 mOsmo 08/16/2017 %Hba1C Znt672 % HbA1c 55801-9 12.5 % 08/16/2017 %Hba1C Bpf134 Gluc Ave 312 mg/dL 08/16/2017 Urine Culture Ucult Preliminary NO Growth Day 1 06/23/2017 Urine Culture Ucult Complete NO Growth Day 2 06/23/2017 C RAP A SC [id number] Strep A Negative 06/08/2017 %Hba1C Nad571 % HbA1c 66634-5 9.5 % 05/04/2017 %Hba1C Lhx652 Gluc Ave 226 mg/dL 05/04/2017 Tsh Ord6 hTSH II 1.47 uIU/mL 05/04/2017 Cbc With Differential Ord2 WBC 6.14 K/ul 05/04/2017 Cbc With Differential Ord2 RBC 4.86 M/ul 05/04/2017 Cbc With Differential Ord2 HGB 15.4 g/dl 05/04/2017 Cbc With Differential Ord2 HCT 43.7 % 05/04/2017 Cbc With Differential Ord2 Neut% 49.8 % 05/04/2017 Cbc With Differential Ord2 MCV 89.9 fl 05/04/2017 Cbc With Differential Ord2 Lymph% 40.4 % 05/04/2017 Cbc With Differential Ord2 MCH 31.7 pg 05/04/2017 Cbc With Differential Ord2 [place]% 8.5 % 05/04/2017 Cbc With Differential Ord2 [...] 2.48 K/ul 05/04/2017 Cbc With Differential Ord2 [place] ABS# 0.5 K/ul 05/04/2017 Cbc With Differential Ord2 Eos ABS# 0.1 K/ul 05/04/2017 Cbc With Differential Ord2 Baso ABS# 0.0 K/ul 05/04/2017 Comp Metabolic Gqi492 NA 135 mEq/L 05/04/2017 Comp Metabolic Ydb550 K 4.2 mEq/L 05/04/2017 Comp Metabolic Xmk052 CL 99 mEq/L 05/04/2017 Comp Metabolic Cbz742 CO2 26.0 mEq/L 05/04/2017 Comp Metabolic Tjs387 ANION GAP 14 05/04/2017 Comp Metabolic Sbf643 GLUCOSE 277 mg/dL 05/04/2017 Comp Metabolic Fjn376 Creat 0.9 mg/dL 05/04/2017 Comp Metabolic Wfb809 eGFR 96 ml/min/1.73m2 05/04/2017 Comp Metabolic Zvt666 BUN 23 mg/dL 05/04/2017 Comp Metabolic Gqg392 B/C Ratio 26.1 Ratio 05/04/2017 Comp Metabolic Jxm194 CALCIUM 8.9 mg/dL 05/04/2017 Comp Metabolic Xbd792 ALK PHOS 81 U/L 05/04/2017 Comp Metabolic Ryq740 AST(SGOT) 21 U/L 05/04/2017 Comp Metabolic Dyw602 ALT(SGPT) 27 U/L 05/04/2017 Comp Metabolic Jsl578 BILI T 1.2 mg/dL 05/04/2017 Comp Metabolic Gmd095 ALBUMIN 4.0 g/dL 05/04/2017 Comp Metabolic Vmj551 TPRO 6.7 g/dL 05/04/2017 Comp Metabolic Lnz506 GLOB 2.7 g/dL 05/04/2017 Comp Metabolic Vjk445 A/G Ratio 1.5 Ratio 05/04/2017 Comp Metabolic Jrk655 Osm[place] 284 mOsmo 05/04/2017 C A/B FLU 2152138 Influenza A Scr Negative 02/16/2017 C A/B FLU 1320974 Influenza B Scr Positive 02/16/2017 Cbc With [...] 39.7 % 05/23/2016 Cbc With Differential Ord2 [place]% 8.8 % 05/23/2016 Cbc With Differential Ord2 MCH 30.3 pg 05/23/2016 Cbc With Differential Ord2 Eos% [...] 2.07 K/ul 05/23/2016 Cbc With Differential Ord2 [place] ABS# 0.5 K/ul 05/23/2016 Cbc With Differential Ord2 Eos ABS# 0.1 K/ul 05/23/2016 Cbc With Differential Ord2 Baso ABS# 0.0 K/ul 05/23/2016 Lipid Ord30 CHOL 397 mg/dL 05/17/2016 Lipid Ord30 HDL 48.0 mg/dl 05/17/2016 Lipid Ord30 TRIG 578 mg/dL 05/17/2016 Lipid Ord30 LDL Unable to calculate Due to elevated triglycerides mg/dL 05/17/2016 Lipid Ord30 C/HDL 8.3 Ratio 05/17/2016 %Hba1C Yzo253 % HbA1c 42519-6 12.4 % 05/16/2016 %Hba1C Amn327 Gluc Ave 309 mg/dL 05/16/2016 Cbc With [...] 87.4 fl 05/15/2016 Cbc With Differential Ord2 [place]% 7.8 % 05/15/2016 Cbc With Differential Ord2 MCH 30.4 pg 05/15/2016 Cbc With Differential Ord2 MCHC 34.7 pg 05/15/2016 Cbc With Differential Ord2 Eos% 0.8 % 05/15/2016 Cbc With Differential Ord2 Baso% 0.2 % 05/15/2016 Cbc With Differential Ord2 PLT 184 K/ul 05/15/2016 Cbc With Differential Ord2 RDW 14.0 % 05/15/2016 Cbc With Differential Ord2 Neut ABS# 3.80 K/ul 05/15/2016 Cbc With Differential Ord2 Lymph ABS# 2.04 K/ul 05/15/2016 Cbc With Differential Ord2 [place] ABS# 0.5 K/ul 05/15/2016 Cbc With Differential Ord2 Eos ABS# 0.1 K/ul 05/15/2016 Cbc With Differential Ord2 Baso ABS# 0.0 K/ul 05/15/2016 Tsh Ord6 hTSH II 1.70 uIU/mL 05/15/2016 Comp Metabolic Nge383 NA 135 mEq/L 05/15/2016 Comp Metabolic Obs170 K 3.9 mEq/L 05/15/2016 Comp Metabolic Vdn906 CL 96 mEq/L 05/15/2016 Comp Metabolic Qot055 CO2 27.0 mEq/L 05/15/2016 Comp Metabolic Olj642 ANION GAP 16 05/15/2016 Comp Metabolic Ifp548 GLUCOSE 183 mg/dL 05/15/2016 Comp Metabolic Jia624 Creat 1.1 mg/dL 05/15/2016 Comp Metabolic Bjx805 eGFR 71 ml/min/1.73m2 05/15/2016 Comp Metabolic Vnb613 BUN 17 mg/dL 05/15/2016 Comp Metabolic Yjm299 B/C Ratio 14.9 Ratio 05/15/2016 Comp Metabolic Qkr981 CALCIUM 9.6 mg/dL 05/15/2016 Comp Metabolic Bss054 ALK PHOS 100 U/L 05/15/2016 Comp Metabolic Txv984 AST(SGOT) 20 U/L 05/15/2016 Comp Metabolic Puq892 ALT(SGPT) 20 U/L 05/15/2016 Comp Metabolic Tlw640 BILI T 1.3 mg/dL 05/15/2016 Comp Metabolic Efn592 ALBUMIN 4.6 g/dL 05/15/2016 Comp Metabolic Mxq874 TPRO 8.1 g/dL 05/15/2016 Comp Metabolic Wka223 GLOB 3.5 g/dL 05/15/2016 Comp Metabolic Pxy978 A/G Ratio 1.3 Ratio 05/15/2016 Comp Metabolic Ozl884 Osmo 276 mOsmo 05/15/2016 Review of Systems [...] lips 06/18/2018 None Full Exam - General 1995 Ears/Nose/Throat [...] of skin Location: face 05/04/2017 patch left episcopal Full Exam - General 1994 Constitutional general [...] Procedure Codes Date IMMUNIZATION ADMIN CPT -4: 77589 07/22/2018 FLU VAC NO PRSV 4 MENA 3 YRS+ CPT-4: 95492 07/22/2018 TRIAMCINOLONE ACET INJ NOS CPT-4: J3301 06/28/2018 KETOROLAC TROMETHAMINE INJ CPT-4: J1885 05/02/2018 FLU VAC NO PRSV 4 MENA 3 YRS+ CPT-4: 52465 08/16/2017 IMMUNIZATION ADMIN CPT -4: 91398 08/16/2017 URINALYSIS NONAUTO W/O SCOPE CPT-4: 92655 06/21/2017 TRIAMCINOLONE ACET INJ NOS CPT-4: J3301 05/04/2017 THER/PROPH/DIAG INJ SC/IM CPT-4: 40368 05/04/2017 TRIAMCINOLONE ACET INJ NOS CPT-4: J3301 02/16/2017 ROCEPHIN, PER 250 MG CPT-4: J0696 02/16/2017 ROCEPHIN, PER 250 MG CPT-4: J0696 10/06/2016 URINALYSIS NONAUTO W/O SCOPE CPT-4: 96097 07/18/2016 TRIAMCINOLONE ACET INJ NOS CPT-4: J3301 01/20/2016 Vital Signs Date Vital 07/22/2018 Blood Pressure 1: 120/78 Code : 8480-6 BMI: 31.6 Code : 03865-1 Heart Rate 1 : 87 bpm Height: 6'2" SpO2: 98% Weight: 246 lbs 07/16/2018 Blood Pressure 1: 132/74 Code : 8480-6 BMI: 31.2 Code : 57644-6 Heart Rate 1 : 90 bpm Height: 6'2" SpO2: 96% Weight: 243 lbs 07/01/2018 Blood Pressure 1: 142/82 Code : 8480-6 BMI: 31.8 Code : 60540-6 Heart Rate 1 : 88 bpm Height: 6'2" SpO2: 98% Weight: 248 lbs 06/28/2018 Blood Pressure 1: 132/76 Code : 8480-6 BMI: 31.8 Code : 39807-6 Heart Rate 1 : 107 bpm Height: 6'2" SpO2: 98% Temperature: 37.9 (C) / 100.3 (F) Weight: 248 lbs 06/18/2018 Blood Pressure 1: 138/82 Code : 8480-6 BMI: 31.8 Code : 95291-2 Heart Rate 1 : 82 bpm Height: 6'2" SpO2: 97% Weight: 248 lbs 06/04/2018 Blood Pressure 1: 128/84 Code : 8480-6 BMI: 33.9 Code : 95285-5 Heart Rate 1 : 86 bpm Height: 6'2" SpO2: 95% Weight: 264 lbs 05/13/2018 Blood Pressure 1: 130/80 Code : 8480-6 BMI: 31.1 Code : 03607-5 Heart Rate 1 : 100 bpm Height: 6'2" SpO2: 94% Weight: 242 lbs 05/02/2018 Blood Pressure 1: 134/84 Code : 8480-6 BMI: 31.2 Code : 79634-1 Heart Rate 1 : 93 bpm Height: 6'2" SpO2: 98% Weight: 243 lbs 04/29/2018 Blood Pressure 1: 142/88 Code : 8480-6 BMI: 31.6 Code : 32654-9 Heart Rate 1 : 96 bpm Height: 6'2" SpO2: 96% Temperature: 36.7 (C) / 98.1 (F) Weight: 246 lbs 03/13/2018 Blood Pressure 1: 120/76 Code : 8480-6 BMI: 30.9 Code : 92205-9 Heart Rate 1 : 112 bpm Height: 6'2" SpO2: 97% Weight: 241 lbs 03/07/2018 Blood Pressure 1: 108/78 Code : 8480-6 BMI: 30.0 Code : 70772-8 Heart Rate 1 : 87 bpm Height: 6'2" SpO2: 98% Weight: 234 lbs 02/28/2018 Blood Pressure 1: 106/74 Code : 8480-6 BMI: 30.0 Code : 32037-0 Heart Rate 1 : 101 bpm Height: 6'2" SpO2: 98% Temperature: 36.4 (C) / 97.5 (F) Weight: 234 lbs 02/13/2018 Blood Pressure 1: 110/78 Code : 8480-6 BMI: 30.0 Code : 08137-8 Heart Rate 1 : 106 bpm Height: 6'2" SpO2: 98% Weight: 234 lbs 01/29/2018 Blood Pressure 1: 106/68 Code : 8480-6 BMI: 30.0 Code : 04789-8 Heart Rate 1 : 108 bpm Height: 6'2" SpO2: 98% Weight: 234 lbs 08/27/2017 Blood Pressure 1: 134/76 Code : 8480-6 Heart Rate 1: 98 bpm Height: SpO2: 97% Weight: 08/16/2017 Blood Pressure 1: 128/80 Code : 8480-6 BMI: 32.0 Code : 36693-2 Heart Rate 1 : 94 bpm Height: [...] Code : 8480-6 BMI: 31.8 Code : 53955-8 Heart Rate 1 : 102 bpm Height: [...] Code : 8480-6 BMI: 31.8 Code : 74412-7 Heart Rate 1 : 85 bpm Height: 6'2" SpO2: 96% Temperature: 36.6 (C) / 97.9 (F) Weight: 248 lbs 02/12/2017 Blood Pressure 1: 126/76 Code : 8480-6 BMI: 31.8 Code : 64571-4 Heart Rate 1 : 106 bpm Height: 6'2" SpO2: 91% Weight: 248 lbs 02/05/2017 Blood Pressure 1: 146/86 Code : 8480-6 BMI: 31.9 Code : 55817-5 Heart Rate 1 : 98 bpm Height: 6'2" SpO2: 87% Temperature: 36.7 (C) / 98.0 (F) Weight: 248 lbs 8 oz 01/29/2017 Blood Pressure 1: 132/84 Code : 8480-6 BMI: 31.8 Code : 22789-6 Heart Rate 1 : 83 bpm Height: 6'2" SpO2: 97% Weight: 248 lbs 10/13/2016 Blood Pressure 1: 128/72 Code : 8480-6 Heart Rate 1: 86 bpm SpO2: 94% 10/09/2016 Blood Pressure 1: 128/68 Code : 8480-6 Heart Rate 1: 136 bpm SpO2: 94% Temperature: 36.8 (C) / 98.2 (F) 10/06/2016 Blood Pressure 1: 140/80 Code : 8480-6 BMI: 32.1 Code : 15180-9 Heart Rate 1 : 94 bpm Height: 6'2" SpO2: 95% Weight: 250 lbs 07/18/2016 Blood Pressure 1: 128/86 Code : 8480-6 BMI: 32.1 Code : 61141-6 Heart Rate 1 : 89 bpm Height: 6'2" SpO2: 96% Weight: 250 lbs 06/22/2016 Blood Pressure 1: 118/70 Code : 8480-6 BMI: 32.1 Code : 05364-9 Heart Rate 1 : 70 bpm Height: 6'2" SpO2: 97% Weight: 250 lbs 05/23/2016 Blood Pressure 1: 128/80 Code : 8480-6 BMI: 32.1 Code : 80209-0 Heart Rate 1 : 76 bpm Height: 6'2" SpO2: 98% Weight: 250 lbs 05/15/2016 Blood Pressure 1: 110/90 Code : 8480-6 BMI: 31.3 Code : 23446-4 Heart Rate 1 : 111 bpm Height: 6'2" SpO2: 97% Temperature: 36.6 (C) / 97.8 (F) Weight: 244 lbs 01/20/2016 Blood Pressure 1: 128/76 Code : 8480-6 BMI: 33.0 Code : 40063-3 Heart Rate 1 : 103 bpm Height: 6'2" SpO2: 95% Weight: 257 lbs Functional Status No Functional Status data History of Present Illness Symptom Name Status Result Effective Date Notes diabetes mellitus Onset of Symptom onset as [...] data Encounters Encounter Performer Location Codes Date ([id number]) 06854 EST. PATIENT, LEVEL IV Diagnosis: Essential (primary) hypertension[ICD10: I10] Diagnosis: Mixed hyperlipidemia[ICD10: E78.2] Diagnosis: Bipolar disorder, current episode depressed, moderate[ICD10: F31.32] Diagnosis: Type 2 diabetes mellitus with other specified complication[ICD10: E11.69] Melida Ha MD, [facility] CPT-4: 60552 2017 ([id number]) 40351 EST. PATIENT, LEVEL III Diagnosis: Insomnia due to medical condition[ICD10: G47.01] Marcela Ha MD, [facility] CPT-4: 10555 07/16/2018 ([id number]) Miscellaneous no charge Diagnosis: Cough[ICD10: R05] Madeline Ha MD, [facility] CPT-4: 88542 07/01/2018 13932 EST. PATIENT, LEVEL III Diagnosis: Cough[ICD10: R05] Diagnosis: Acute laryngopharyngitis[ICD10: J06.0] Diagnosis: Other allergic rhinitis[ICD10: J30.89] Madeline Ha MD, [facility] CPT-4: 11947 06/28/2018 ([id number]) 21408 EST. PATIENT, LEVEL IV Diagnosis: Type 2 diabetes mellitus with hyperglycemia[ICD10: E11.65] Diagnosis: Essential (primary) hypertension[ICD10: I10] Melida Ha MD, [facility] CPT-4: 14913 06/18/2018 ([id number]) 48932 EST. PATIENT, LEVEL IV Diagnosis: Type 2 diabetes mellitus with hyperglycemia[ICD10: E11.65] Diagnosis: Essential (primary) hypertension[ICD10: I10] Diagnosis: Localized edema[ICD10: R60.0] Melida Ha MD, [facility] CPT- 4: 54390 06/04/2018 ([id number]) 97563 EST. PATIENT, LEVEL III Diagnosis: Type 2 diabetes mellitus with hyperglycemia[ICD10: E11.65] Diagnosis: Myalgia[ICD10: M79.1] Diagnosis: Pain in right hip[ICD10: M25.551] Diagnosis: Pain in left hip[ICD10: M25.552] Marcela Ha MD, [facility] CPT-4: 10836 05/13/2018 ([id number]) 69990 EST. PATIENT, LEVEL III Diagnosis: Myalgia[ICD10: M79.1] Diagnosis: Pain in right hip[ICD10: M25.551] Diagnosis: Pain in left hip[ICD10: M25.552] Marcela Ha MD, [facility] CPT-4: 62986 05/02/2018 ([id number]) 11507 EST. PATIENT, LEVEL IV Diagnosis: Essential (primary) hypertension[ICD10: I10] Diagnosis: Type 2 diabetes mellitus with hyperglycemia[ICD10: E11.65] Diagnosis: Major depressive disorder, single episode, moderate[ICD10: F32.1] Diagnosis: Myalgia[ICD10: M79.1] Marcela Ha MD, [facility] CPT-4: 84791 04/29/2018 ([id number]) 99116 EST. PATIENT, LEVEL IV Diagnosis: Type 2 diabetes mellitus with hyperglycemia[ICD10: E11.65] Diagnosis: Essential (primary) hypertension[ICD10: I10] Diagnosis: Major depressive disorder, single episode, moderate[ICD10: F32.1] Melida Ha MD, [facility] CPT-4: 93074 03/13/2018 ([id number]) 16812 EST. PATIENT, LEVEL III Diagnosis: Type 2 diabetes mellitus with hyperglycemia[ICD10: E11.65] Diagnosis: Bipolar disorder, current episode depressed, moderate[ICD10: F31.32] Diagnosis: Orthostatic hypotension[ICD10: I95.1] Marcela Ha MD, [facility] CPT-4: 76952 03/07/2018 ([id number]) 60706 EST. PATIENT, LEVEL IV Diagnosis: Type 2 diabetes mellitus with hyperglycemia[ICD10: E11.65] Diagnosis: Major depressive disorder, single episode, moderate[ICD10: F32.1] Diagnosis: Orthostatic hypotension[ICD10: I95.1] Diagnosis: Other fatigue[ICD10: R53.83] Marcela Ha MD, [facility] CPT-4: 60196 02/28/2018 30322 EST. PATIENT, LEVEL IV Diagnosis: Other fatigue[ICD10: R53.83] Diagnosis: Other malaise[ICD10: R53.81] Diagnosis: Gastro-esophageal reflux disease without esophagitis[ICD10: K21.9] Madeline Ha MD, [facility] CPT-4: 68914 02/13/2018 ([id number]) 60708 EST. PATIENT, LEVEL IV Diagnosis: Type 2 diabetes mellitus with foot ulcer[ICD10: E11.621] Diagnosis: Essential (primary) hypertension[ICD10: I10] Diagnosis: Gastro-esophageal reflux disease without esophagitis[ICD10: K21.9] Marcela Ha MD, [facility] CPT-4: 01083 01/29/2018 96350 EST. PATIENT, LEVEL III Diagnosis: Other malaise[ICD10: R53.81] Diagnosis: Other fatigue[ICD10: R53.83] Diagnosis: Pain in right shoulder[ICD10: M25.511] Diagnosis: Pain in left shoulder[ICD10: M25.512] Madeline Ha MD, [facility] CPT-4: 75595 08/27/2017 ([id number]) 41217 EST. PATIENT, LEVEL IV Diagnosis: Essential (primary) hypertension[ICD10: I10] Diagnosis: Type 2 diabetes mellitus with hyperglycemia[ICD10: E11.65] Diagnosis: VACCIN FOR INFLUENZA[ICD10: Z23] Melida Ha MD, [facility] CPT-4: 12567 08/16/2017 48063 EST. PATIENT, LEVEL III Diagnosis: Zoster without complications[ICD10: B02.9] Madeline Ha MD, [facility] CPT-4: 22265 07/26/2017 ([id number]) 85565 EST. PATIENT, LEVEL III Diagnosis: Cellulitis of right lower limb[ICD10: L03.115] Marcela Ha MD, [facility] CPT-4: 19215 07/03/2017 01603 EST. PATIENT, LEVEL II Diagnosis: Laceration without foreign body of left forearm, initial encounter[ ICD10: S51.812A] Marcela Ha MD, [facility] CPT-4: 30067 06/29/2017 ([id number]) 93219 EST. PATIENT, LEVEL III Diagnosis: Cellulitis of right lower limb[ICD10: L03.115] Diagnosis: Type 2 diabetes mellitus with foot ulcer[ICD10: E11.621] Marcela Ha MD , [facility] CPT-4: 41895 06/18/2017 ([id number]) 79690 EST. PATIENT, LEVEL IV Diagnosis: Cellulitis of right lower limb[ICD10: L03.115] Diagnosis: Acute laryngopharyngitis[ICD10: J06.0] Diagnosis: Gastro-esophageal reflux disease without esophagitis[ICD10: K21.9] Marcela Ha MD, [facility] CPT-4: 64564 06/07/2017 ([id number]) 50151 EST. PATIENT, LEVEL III Diagnosis: Type 2 diabetes mellitus with hyperglycemia[ICD10: E11.65] Diagnosis: Insect bite (nonvenomous) of abdominal wall, initial encounter[ICD10 : S30.861A] Marcela Ha MD, [facility] CPT-4: 70424 05/17/2017 ([id number]) 47271 EST. PATIENT, LEVEL III Diagnosis: Allergic contact dermatitis due to plants, except food[ICD10: L23.7] Melida Ha MD, [facility] CPT-4: 01362 05/04/2017 ([id number]) 05858 EST. PATIENT, LEVEL III Diagnosis: Essential (primary) hypertension[ICD10: I10] Marcela Ha MD, [facility] CPT-4: 67996 03/15/2017 ([id number]) 86685 EST. PATIENT, LEVEL III Diagnosis: Cough[ICD10: R05] Diagnosis: Essential (primary) hypertension[ICD10: I10] Marcela Ha MD, [facility] CPT-4: 88210 03/01/2017 ([id number]) 39738 EST. PATIENT, LEVEL III Diagnosis: Cough[ICD10: R05] Diagnosis: Nasal congestion[ICD10: R09.81] Diagnosis: Acute recurrent maxillary sinusitis[ICD10: J01.01] Marcela Ha MD [facility] CPT-4: 30009 02/16/2017 ([id number]) 54571 EST. PATIENT, LEVEL III Diagnosis: Type 2 diabetes mellitus with hyperglycemia[ICD10: E11.65] CONSTANTINO Griffin MD CPT-4: 59226 02/12/2017 ([id number]) 72879 EST. PATIENT, LEVEL IV Diagnosis: Type 2 diabetes mellitus with hyperglycemia[ICD10: E11.65] Diagnosis: Muscle weakness (generalized)[ICD10: M62.81] Diagnosis: Disorientation, unspecified[ICD10: R41.0] Marcela Ha MD [facility] CPT-4: 55844 02/05/2017 ([id number]) Patient admitted to the hospital from clinic (NO CHARGE) Diagnosis: Type 2 diabetes mellitus with hyperglycemia[ICD10: E11.65] Diagnosis: Disorientation, unspecified[ICD10: R41.0] Diagnosis: Muscle weakness (generalized)[ICD10: M62.81] Marcela Ha MD, [facility] CPT-4: 45274K 01/29/2017 ([id number]) Miscellaneous no charge Diagnosis: Cellulitis of right lower limb[ICD10: L03.115] Marcela Ha MD, [facility] CPT-4: 61265 10/13/2016 ([id number]) Miscellaneous no charge Diagnosis: Type 2 diabetes mellitus with foot ulcer[ICD10: E11.621] Diagnosis: Pain in right foot[ICD10: M79.671] Marcela Ha MD [facility] CPT-4: 00615 10/09/2016 78980 EST. PATIENT, LEVEL II Diagnosis: Cellulitis of right lower limb[ICD10: L03.115] [facility] CPT-4: 40605 10/06/2016 ([id number]) 26611 EST. PATIENT, LEVEL IV Diagnosis: Low back pain[ICD10: M54.5] Diagnosis: Other deformities of toe(s) (acquired), left foot[ICD10: M20.5X2] Diagnosis: Type 2 diabetes mellitus with foot ulcer[ICD10: E11.621] Marcela Ha MD , [facility] CPT-4: 30093 07/18/2016 ([id number]) 75282 EST. PATIENT, LEVEL III Diagnosis: Type 2 diabetes mellitus with hyperglycemia[ICD10: E11.65] Marcela Ha MD, [facility] CPT-4: 86334 06/22/2016 ([id number]) 59803 EST. PATIENT, LEVEL IV Diagnosis: Type 2 diabetes mellitus with hyperglycemia[ICD10: E11.65] Diagnosis: Mixed hyperlipidemia[ICD10: E78.2] Diagnosis: Other hemoglobinopathies[ICD10: D58.2] Marcela Ha MD, [facility] CPT-4: 75395 05/23/2016 ([id number]) 83533 EST. PATIENT, LEVEL IV Diagnosis: Type 2 diabetes mellitus with other specified complication[ICD10: E11.69] Diagnosis: Dehydration[ICD10: E86.0] Marcela Ha MD, [facility] CPT-4: 73411 05/15/2016 ([id number]) OFFICE VISIT, NEW - LEVEL 3 Diagnosis: Allergic contact dermatitis due to plants, except food[ICD10: L23.7] Madeline Ha MD, [facility] CPT-4: 64582 01/20/2016 Plan of Care Planned Activity Notes Codes Status Date Patient Education: Patient Medication Summary Completed 09/06/2018 Patient Education: Cholesterol Management Completed 09/06/2018 Care Plan: Comp Metabolic Pending 09/06/2018 Care Plan: Cbc With Differential Pending 09/06/2018 Care Plan: %Hba1C LOINC : 47609-9 Pending 09/06/2018 Care Plan: Tsh Pending 09/06/2018 Care Plan: Lipid Pending 09/06/2018 Appointment: Marcela Oshea WPtel: [address] [place], [place] [phone] (15 min) Moderate 08/26/2018 Appointment: Marcela Oshea WPtel: [address] [place], [place] [phone] (15 min) Moderate 08/23/2018 Visit Plan: Hypertension [...] in clinic. 07/22/2018 Appointment: Melida Ha WPtel: [facility]4 [facility] (15 min) Moderate 07/22/2018 Patient Education: Patient [...] insomnia. 07/16/2018 Appointment: Marcela Oshea WPtel: [phone] [phone] (30 min) Complex 07/16/2018 Patient Education: Patient Medication Summary Completed 07/16/2018 Visit Plan: cough - improved - notify clinic if symptoms do not completely resolve, or with any questions or concerns. 07/01/2018 Appointment: [facility] [phone] [facility] (15 min) Moderate 07/01/2018 Patient Education: Patient [...] allergy spray. 06/28/2018 Appointment: Madeline Kennedy WPtel: [address] [place], [place] [phone] (15 min) Moderate 06/28/2018 Patient Education: Patient Medication Summary Completed 06/28/2018 Patient Education: Patient Medication Summary Completed 06/21/2018 Care Plan: Annabel RICKS [place] Pending 06/21/2018 Visit Plan: Diabetes Mellitus - [...] home. 06/18/2018 Appointment: Melida Ha [facility]Ptel: [phone] [facility] [place] (15 min) Moderate 06/18/2018 Patient Education: [...] improves. 06/04/2018 Appointment: Melida Ha [facility]Ptel: [phone] [facility] (15 min) Moderate 06/04/2018 Patient Education: Patient [...] allow for greater blood glucose control. Joint ueco-tnsudhhx-fqhqics- symptoms have improved -stop meloxicam due to upset stomach-call if symptoms return 05/13/2018 Appointment: Marcela Oshea WPtel: [phone] [phone] [place] (30 min) Complex 05/13/2018 Patient Education: Patient Medication Summary Completed 05/13/2018 Visit Plan: Bilateral hip qjwn-jejvecfn-ywmkzon IM injection administered today for c/o continued myalgia/arthralgia. Patient to start taking Meloxicam 15mg PO daily. Advised to return to clinic if symptoms do not improve. 05/02/2018 Appointment: Marcela Oshea WPtel: [phone] [phone] (30 min) Complex 05/02/2018 Patient Education: Patient [...] readings at home. Diabetes Mellitus -check labs Oorpedrm-jkttzpi-yzdr bite-rx for doxycycline-follow up in 2 weeks 04/29/2018 Appointment: Marcela Oshea WPtel: [address] [phone] (15 min) Moderate 04/29/2018 Patient Education: Patient Medication Summary Completed 04/29/2018 Appointment: Melida Ha WPtel: [phone] [phone] (15 min) Moderate 04/15/2018 Appointment: Marcela Oshea WPtel: [phone] [phone] (30 min) Complex 03/21/2018 Visit Plan: Hypertension [...] cymbalta 03/13/2018 Appointment: Melida Ha [facility]Ptel: [phone] (30 min) Complex 03/13/2018 Patient Education: Patient Medication Summary Completed 03/13/2018 Visit Plan: DM-continue same medications-monitor blood sugars routinely as directed -rx for new glucometer and test strips provided Bipolar-currently depressed-patient start on vraylar-follow up in 2 weeks, sooner if needed. Patient and verbalied understanding of plan. Hypotension- stay off losartan 03/07/2018 Appointment: Marcela Oshea WPtel: [phone] [phone] (30 min) Complex 03/07/2018 Patient Education: Patient Medication Summary Completed 03/07/2018 Appointment: Melida Ha WPtel: [facility] (15 min) Moderate 03/04/2018 Visit Plan: Hypotension-continue [...] this patient. 02/28/2018 Appointment: Marcela Oshea WPtel: [phone] (30 min) Complex 02/28/2018 Patient [...] not improving. 02/13/2018 Appointment: Madeline Kennedy [facility]Ptel[facility] [phone] [facility] (15 min) Moderate 02/13/2018 Patient Education: Patient Medication Summary Completed 02/13/2018 Referral: Sun Glynn Patient informed. Referral info faxed. Completed Visit Plan: DM-weight loss-not checking blood sugars- patient sent for labs today HTN-low ewmvl-pkklqtl-elglk labs Callus of foot and fissue of heel-refer to Dr Glynn for evaluation Esophageal Reflux - the patient has been counseled against excessive intake of caffeine, spicy foods, peppermint , and cinnamon - all of which can exacerbate esophageal reflux. The patient is to take medications as prescribed and call the office if the symptoms are not improving. 01/29/2018 Appointment: Marcela Oshea WPtel: [facility]2 [phone] (30 min) Complex 01/29/2018 Patient Education: Patient Medication Summary Completed 01/29/2018 Care Plan: Comp Metabolic Cancelled 01/29/2018 Care Plan: Cbc With Differential Cancelled 01/29/2018 Care Plan: %Hba1C LOINC : 81985-2 Cancelled 01/29/2018 Care Plan: Referral Order SNOMED-CT : [id number] Cancelled 01/29/2018 Visit Plan: Fatigue, malaise, joint [...] concerns. 08/27/2017 Appointment: Madeline Kennedy WPtel: [phone] [phone] (15 min) Moderate 08/27/2017 Patient Education: Patient [...] - 08/16/2017 Appointment: Melida Ha WPtel: [phone] [facility] (30 min) Complex 08/16/2017 Patient Education: Patient Medication Summary Completed 08/16/2017 Patient Education: Obesity Completed 08/16/2017 Appointment: Mad[facility] Kennedy [facility]Ptel: [phone] [facility] (30 min) Complex 08/07/2017 Visit Plan: Shingles [...] contagious. 07/26/2017 Appointment: Mad[facility] Kennedy [facility]Ptel: [phone] [facility] (15 min) Moderate 07/26/2017 Patient Education: Patient Medication Summary Completed 07/26/2017 Visit Plan: Cellulitis right foot-cultured today in the office-home health to reapply wound vac--appt with wound care on to evaluate for debridement- 07/03/2017 Appointment: Marcela Oshea WPtel: [facility] (30 min) Complex 07/03/2017 Patient Education: Patient Medication Summary Completed 07/03/2017 Visit Plan: Abrasion left arm - Pt was instructed to keep the wound clean, wash with antibacterial soap, use triple antibiotic ointment, call if redness, pustular drainage, or any other acute concerns. 06/29/2017 Appointment: Marcela Oshea WPtel: [address] [place], [place] [phone] (15 min) Moderate 06/29/2017 Patient Education: Patient [...] of plan. 06/18/2017 Appointment: Marcela Oshea WPtel: [address] [place], [place] [phone] (15 min) Moderate 06/18/2017 Patient Education: Patient [...] diet-start prilosec 06/07/2017 Appointment: Marcela Oshea WPtel: [facility]5 [phone] (10 min) Simple 06/07/2017 Patient Education: Patient [...] bite-continue doxycycline 05/17/2017 Appointment: Marcela Oshea WPtel: [facility]5 [phone] (30 min) Complex 05/17/2017 Patient Education: Patient [...] if you want blue minesh called into [facility]. 05/04/2017 Appointment: Marcela Oshea WPtel: [phone] [phone] (30 min) Complex 05/04/2017 Patient Education: Patient [...] home. Cough-resolved 03/15/2017 Appointment: Marcela Oshea WPtel: [facility]0 [facility] [place] [address] (15 min) Moderate 03/15/2017 Patient Education: Patient Medication Summary Completed 03/15/2017 Appointment: Marcela Oshea WPtel: [address] [place], [place] [phone] [place] [address] (30 min) Complex 03/12/2017 Visit Plan: Feng [...] as discussed 02/16/2017 Appointment: Marcela Oshea WPtel: [address] [place], [place] [phone] [place] [address] (15 min) Moderate 02/16/2017 Patient Education: Patient [...] less controlled. 02/12/2017 Appointment: Marcela Oshea WPtel: [address] [place], [place] [phone] [place] [address] (30 min) Complex 02/12/2017 Patient Education: Patient Medication Summary Completed 02/12/2017 Appointment: Marcela Oshea WPtel: [address] [place], [place] [phone] [place] [address] (30 min) Complex 02/06/2017 Visit Plan: Diabetes [...] will consider 02/05/2017 Appointment: Marcela Oshea WPtel: [address] [phone] [place] (30 min) Complex 02/05/2017 Patient Education: Patient Medication Summary Completed 02/05/2017 Appointment: Marcela Oshea WPtel: [facility]5 [phone] [place] (30 min) Complex 01/30/2017 Visit Plan: Acute confusion-uncontrolled diabetes- chronically noncompliant with treatment and stopped his insulin several months ago-r/o stroke vs DKA-Dr Ha in to evaluate patient-plan to admit for further work up and treatment-patient's called and she transported him to the hospital 01/29/2017 Appointment: Marcela Oshea WPtel: [facility]0 [phone] [place] (30 min) Complex 01/29/2017 Patient Education: Patient Medication Summary Completed 01/29/2017 Patient Education: Obesity Completed 01/29/2017 Visit Plan: Right foot pain-MRI shows foreign body-appt with Dr Grewal for evaluation on Sunday. 10/13/2016 Appointment: Marcela Oshea WPtel: [phone] [phone] [place] (15 min) Moderate 10/13/2016 Patient Education: Patient Medication Summary Completed 10/13/2016 Appointment: Marcela Oshea WPtel: [phone] [place] (30 min) Complex 10/12/2016 Visit Plan: Right foot pify-qyjpgigj-zffbk washer dropped on foot-xray negative but pain continues to increase-recommend MRI of foot for further evaluation-refer to wound care for lesions on right foot, patient has diabetes and history of osteomyelitis-culture obtained today-continue oral abx- follow up in the office on , sooner if needed 10/09/2016 Visit Plan: Right foot snzi-cicgvthh-skjyl washer dropped on foot-xray negative but pain continues to increase-recommend MRI of foot for further evaluation-refer to wound care for lesions on right foot, patient has diabetes and history of osteomyelitis-culture obtained today-continue oral abx- follow up in the office on , sooner if needed 10/09/2016 Visit Plan: Right foot zrkd-lyvgqicb-sciwi washer dropped on foot-xray negative but pain continues to increase-recommend MRI of foot for further evaluation-refer to wound care for lesions on right foot, patient has diabetes and history of osteomyelitis-culture obtained today-continue oral abx- follow up in the office on , sooner if needed 10/09/2016 Appointment: Marcela Oshea WPtel: [address] [place] [address] (30 min) Complex 10/09/2016 Patient Education: Patient Medication Summary Completed 10/09/2016 Visit Plan: Cellulitis - continue with oral antibiotics as previously directed, return to clinic as previously directed, call for acute change in symptoms, worsening redness, warmth, discharge. 10/06/2016 Appointment: Marcela Oshea WPtel: [address] [place] [address] (10 min) Simple 10/06/2016 Patient Education: Patient Medication Summary Completed 10/06/2016 Appointment: Marcela Oshea WPtel: [address] [place], [place] [phone] [place] [address] (30 min) Complex 08/24/2016 Referral: Sun Glynn Referral Completed 07/21/2016 Visit Plan: Low back pain- history of spinal fusion- patient for xray lumbar spine-RX sent to [facility] and instructed on use-topical voltaren samples provided and instructed on use. Ok to use tylenol as needed as well. The patient is to call the office if the pain is worsening or does not improve. Pressure ulcer left 4th toe-refer to Dr Glynn for evaluation 07/18/2016 Appointment: Marcela Oshea WPtel: [phone] [phone] (30 min) Complex 07/18/2016 Patient Education: Patient Medication Summary Completed 07/18/2016 Patient Education: Obesity Completed 07/18/2016 Care Plan: Referral Order SNOMED-CT : [id number] Cancelled 07/18/2016 Visit Plan: Diabetes Mellitus - [...] glucose control. 06/22/2016 [facility]ment[phone] ([facility] min) Complex 06/22/2016 Patient [...] today 05/23/2016 Appointment: Marcela Oshea WPtel: [phone] [phone] (30 min) Complex 05/23/2016 Patient Education: Patient [...] plan. 05/15/2016 Appointment: Marcela Oshea WPtel: [phone] [phone] (15 min) Moderate 05/15/2016 Patient Education: Patient [...] if you want blue goo called into [facility]. 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 Low back pain- history of spinal fusion-patient for xray lumbar spine-RX sent to [facility] and instructed on use-topical voltaren samples [...] for fracture from injury . Right foot rgoj-grwitdqk-robfy washer dropped on foot-xray negative but pain [...] for fracture from injury . Right foot uyqn-tyrxuqos-whbzc washer dropped on foot-xray negative but pain [...] for fracture from injury . Right foot njla-wnwfqhzd-ipsdm washer dropped on foot-xray negative but pain continues to increase-recommend MRI of foot for further evaluation-refer to wound care for lesions on right foot, patient has diabetes and history of osteomyelitis-culture obtained today-continue oral abx-follow up in the office on , sooner if needed . Bilateral hip hnqd-bckichmg-xvgxqse IM injection administered today for c/o continued myalgia/arthralgia. Patient to start taking Meloxicam 15mg PO daily. Advised to return to clinic if symptoms do not improve. . DM-weight loss-not checking blood sugars-patient sent for labs today HTN-low imzwf-ajyukyd-zohgp labs Callus of foot and fissue of [...] readings are starting to become less controlled. Nwmzkrhoj-mvfnsxyw-cuacnyuh to monitor Generalized weakness-refer for PT-patient refuses [...] allow for greater blood glucose control. Joint bqcn-xszyfvlo-tosdfbl-symptoms have improved -stop meloxicam due to upset [...] readings at home. Diabetes Mellitus -check labs Fldgpotf-lqgifua-xdzc bite-rx for doxycycline-follow up in 2 weeks [...]
--- OUTSIDE RECORDS SUMMARY | 2018-10-20 11:12 | XMS REPORT | CCD ---
Author Author Madeline Kennedy MD, [facility] Address [address] [place] [address] Phone Care Team Providers Care Radio Director Name Role Phone PP Unavailable CCM Unavailable Summary Purpose Interface Exchange Insurance Providers Payer name Policy type / Coverage type Covered green party ID Effective Begin Date Effective End Date Blue Cross Blue Shield [facility] Blue Cross/Blue Shield [id number] Unknown Family history Father Diagnosis Age At Onset Hyperlipidemia Unknown Heart Attack Unknown Mother Diagnosis Age At Onset Hypertension Unknown Social History Social History Element Codes Description Effective Dates Marital status Unknown Mignon 01/20/2016 Number of children Unknown 4 01/20/2016 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/[address]: 022711162 Never smoker 01/20/[address]: 177883230 Never drinks alcohol 01/20/2016 Allergies, Adverse Reactions, Alerts Substance Reaction Codes Entered Date Inactivated Date Status * NO KNOWN DRUG ALLERGIES Unknown 05/23/2016 No Inactive Date Active Past Medical History Illness Codes Condition Status Onset Date Resolved Date Diarrhea, unspecified ICD-9: 787.91 ICD-10: R19.7 Active 06/21/2018 Unknown Essential (primary) hypertension ICD-9: 401.1 ICD-10: I10 Active 03/01/2017 Unknown Type 2 diabetes mellitus with hyperglycemia ICD-9: 250.00 ICD-10: E11.65 Active 06/21/2016 Unknown Localized edema ICD-9 : 782.3 ICD-10: R60.0 Active 06/04/2018 Unknown Myalgia ICD-9: 729.1 ICD-10: M79.1 Active 04/29/2018 Unknown Pain in left hip ICD-9 : 719.45 ICD-10: M25.552 Active 05/02/2018 Unknown Pain in right hip ICD- 9: 719.45 ICD-10: M25.551 Active 05/02/2018 Unknown Major depressive disorder, single episode, moderate ICD-9: 296.22 ICD-10: F32.1 Active 02/28/2018 Unknown Bipolar disorder, current episode depressed, moderate ICD-9: 296.52 ICD-10: F31.32 Active 03/07/2018 Unknown Orthostatic hypotension ICD-9: 458.0 ICD-10: I95.1 [...] ICD-9: 719.41 ICD-10: M25.511 Active 08/27/2017 Unknown VACCIN FOR INFLUENZA ICD-9: V04.81 ICD-10: Z23 Active 08/16/2017 Unknown Zoster without complications ICD-9: 053.9 ICD-10: B02.9 Active 07/26/2017 Unknown Cellulitis of right lower limb ICD-9: 682.7 ICD-10: L03.115 Active 10/12/2016 Unknown Laceration without foreign body of left forearm, initial encounter ICD-9: 881.00 ICD-10: S51.812A Active 06/29/2017 Unknown Dysuria ICD-9: 788.1 ICD-10: R30.0 Active 06/21/2017 Unknown Acute laryngopharyngitis ICD-9: 465.0 ICD-10: J06.0 Active 06/07/2017 Unknown Insect bite (nonvenomous) of [...] Problems Condition Codes Effective Dates Condition Status Diarrhea, unspecified ICD-9: 787.91 ICD-10: R19.7 06/21/2018 Active Essential (primary) hypertension ICD-9: 401.1 ICD-10: I10 03/01/2017 Active Type 2 diabetes mellitus with hyperglycemia ICD-9: 250.00 ICD-10: E11.65 06/21/2016 Active Localized edema ICD-9 : 782.3 ICD-10: R60.0 06/04/2018 Active Myalgia ICD-9: 729.1 ICD-10: M79.1 04/29/2018 Active Pain in left hip ICD-9 : 719.45 ICD-10: M25.552 05/02/2018 Active Pain in right hip ICD- 9: 719.45 ICD-10: M25.551 05/02/2018 Active Major depressive disorder, single episode, moderate ICD-9: 296.22 ICD-10: F32.1 02/28/2018 Active Bipolar disorder, current episode depressed, moderate ICD-9: 296.52 ICD-10: F31.32 03/07/2018 Active Orthostatic hypotension ICD-9: 458.0 ICD-10: I95.1 [...] shoulder ICD-9: 719.41 ICD-10: M25.511 08/27/2017 Active VACCIN FOR INFLUENZA ICD-9: V04.81 ICD-10: Z23 08/16/2017 Active Zoster without complications ICD-9: 053.9 ICD-10: B02.9 07/26/2017 Active Cellulitis of right lower limb ICD-9: 682.7 ICD-10: L03.115 10/12/2016 Active Laceration without foreign body of left forearm, initial encounter ICD-9: 881.00 ICD-10: S51.812A 06/29/2017 Active Dysuria ICD-9: 788.1 ICD-10: R30.0 06/21/2017 Active Acute laryngopharyngitis ICD-9: 465.0 ICD-10: J06.0 06/07/2017 Active Insect bite (nonvenomous) of abdominal [...] Start Date Stop Date Status Fill Instructions Lyrica 50 mg capsule RxNorm: 516811 Capsule(s) PO daily 201709/21/2018 Active Novolog Flexpen U-100 Insulin aspart 100 unit/mL subcutaneous RxNorm: 4947164 10 Unit(s) SQ AC 06/18/20182017 Active this is an update on his medication Lasix 20 mg tablet RxNorm: 755123 1 Tablet(s) PO BIW 201710/09/2018 Active atorvastatin 80 mg tablet RxNorm: 902890 1 Tablet(s) PO QHS 04/201812/06/2018 Active clonazepam 1 mg tablet RxNorm: 317105 2 Tablet(s) PO HS 201706/04/2019 Active Lyrica 50 mg capsule RxNorm: 081078 Capsule(s) PO daily 2017 No Stop Date Active clonazepam 1 mg tablet RxNorm: 398632 2 Tablet(s) PO HS as needed 06/10/2018 06/09/2018 Inactive Lasix 20 mg tablet RxNorm: 800245 1 Tablet(s) PO TIW 201706/11/2018 Inactive Toujeo SoloStar U-300 Insulin 300 unit/mL (1.5 mL) subcutaneous pen RxNorm: 0774610 50 Unit(s) SQ daily 05/07/2018 No Stop Date Active meloxicam 15 mg tablet RxNorm: 489167 15 Milligram(s) PO daily 05/02/2018 05/12/2018 Inactive ketorolac 30 mg/mL injection solution RxNorm: 681009 2 Milliliter(s) Inj 05/02/2018 05/02/2018 Inactive Toujeo SoloStar U-300 Insulin 300 unit/mL (1.5 mL) subcutaneous pen RxNorm: 0977411 45 Unit(s) daily 04/29/2018 Inactive clonazepam 1 mg tablet RxNorm: 188852 1 Tablet(s) PO Q8 as needed 04/29/2018 06/09/2018 Inactive doxycycline hyclate 100 mg tablet RxNorm: 3175222 1 Tablet(s) PO BID 04/29/2018 05/12/2018 Inactive Cymbalta 30 mg capsule,delayed release RxNorm: 492344 1 Capsule(s) PO QAM 03/13/2018 10/08/2018 Active Lexapro 10 mg tablet RxNorm: 358475 1 Tablet(s) PO QPM 201703/03/2018 Inactive Toujeo SoloStar U-300 Insulin 300 unit/mL (1.5 mL) subcutaneous pen RxNorm: 1454617 20 Unit(s) daily 02/28/2018 Inactive Protonix 40 mg tablet,delayed release RxNorm: 268467 1 Tablet(s) PO daily 01/29/2018 06/09/2018 Inactive clonazepam 1 mg tablet RxNorm: 169922 1 Tablet(s) PO Q8 as needed 12/12/2017 03/10/2018 Inactive Tamiflu 75 mg capsule RxNorm: 084203 1 Capsule(s) PO BID 201712/03/2017 Inactive doxycycline hyclate 100 mg capsule RxNorm: 5049168 1 Capsule(s) PO BID 09/07/2017 09/20/2017 Inactive doxycycline hyclate 100 mg capsule RxNorm: 2674961 1 Capsule(s) PO BID 08/27/2017 09/06/2017 Inactive prednisone 20 mg tablet RxNorm: 192680 2 Tablet(s) PO daily 08/31/2017 Inactive clopidogrel 75 mg tablet RxNorm: 746672 1 Tablet(s) PO daily 06/09/2018 Inactive atorvastatin 40 mg tablet RxNorm: 942603 1 Tablet(s) PO QHS 02/27/2018 Inactive losartan 25 mg tablet RxNorm: 583237 TAKE ONE TABLET BY MOUTH DAILY 08/22/2017 06/09/2018 Inactive Toujeo SoloStar 300 unit/mL (1.5 mL) subcutaneous insulin pen RxNorm: 3960375 45 Unit(s) daily 08/17/2017 08/20/2017 Inactive mupirocin 2 % topical ointment RxNorm: 426413 1 Application TOP TID to the lesions on chest 08/16/2017 08/25/2017 Inactive Toujeo SoloStar 300 unit/mL (1.5 mL) subcutaneous insulin pen RxNorm: 3991349 40 Unit(s) daily 08/16/2017 08/16/2017 Inactive valacyclovir 1 gram tablet RxNorm: 563070 1 Tablet(s) PO TID 08/01/2017 Inactive clonazepam 1 mg tablet RxNorm: 352863 1 Tablet(s) PO Q8 as needed 07/03/2017 09/30/2017 Inactive Levaquin 500 mg tablet RxNorm: 622882 1 Tablet(s) PO daily 06/25/2017 Inactive Levaquin 500 mg tablet RxNorm: 707320 1 Tablet(s) PO daily 06/21/2017 Inactive losartan 25 mg tablet RxNorm: 132956 1 Tablet(s) PO daily 201608/16/2017 Inactive nystatin 100,000 unit/mL oral suspension RxNorm: 397518 5 Milliliter(s) PO QID Swish et swallow 06/18/2017 06/17/2017 Inactive nystatin 100,000 unit/mL oral suspension RxNorm: 749529 5 Milliliter(s) PO QID Swish et swallow 06/18/2017 06/27/2017 Inactive Cipro 500 mg tablet RxNorm: 975960 1 Tablet(s) PO BID 201606/18/2017 Inactive Cipro 500 mg tablet RxNorm: 629592 1 Tablet(s) PO BID 201606/11/2017 Inactive Toujeo SoloStar 300 unit/mL (1.5 mL) subcutaneous insulin pen RxNorm: 3461512 INJECT 10 UNITS UNDER THE SKIN DAILY 06/12/2017 08/15/2017 Inactive Keflex 500 mg capsule RxNorm: 804771 1 Capsule(s) PO TID 201606/13/2017 Inactive doxycycline hyclate 100 mg capsule RxNorm: 5159606 1 Capsule(s) PO BID 05/17/2017 05/21/2017 Inactive doxycycline hyclate 100 mg capsule RxNorm: 6055718 1 Capsule(s) PO BID 05/11/2017 05/16/2017 Inactive losartan 25 mg tablet RxNorm: 215559 1 Tablet(s) PO daily 201606/17/2017 Inactive atorvastatin 40 mg tablet RxNorm: 851499 1 Tablet(s) PO daily 03/01/2017 08/23/2017 Inactive clopidogrel 75 mg tablet RxNorm: 955833 1 Tablet(s) PO daily 08/23/2017 Inactive Flonase Allergy Relief 50 mcg/actuation nasal spray, suspension RxNorm: 4446912 2 [place] NASAL daily 02/16/20172016 Inactive Augmentin 875 mg-125 mg tablet RxNorm: 847108 1 Tablet(s) PO BID 02/16/2017 02/22/2017 Inactive GET PROBIOTIC TO TAKE WHILE ON ABX Tamiflu 75 mg capsule RxNorm: 185517 1 Capsule(s) PO BID 201602/20/2017 Inactive ceftriaxone 500 mg solution for injection RxNorm: 0933032 1 Milliliter(s) Inj 02/16/2017 02/16/2017 Inactive Kenalog 40 mg/mL suspension for injection RxNorm: 7892471 1 Milliliter(s) Inj 02/16/2017 02/16/2017 Inactive Toujeo SoloStar 300 unit/mL (1.5 mL) subcutaneous insulin pen RxNorm: 3198855 25 Unit(s) SQ QAM 02/12/2017 06/10/2017 Inactive Toujeo SoloStar 300 unit/mL (1.5 mL) subcutaneous insulin pen RxNorm: 8015235 10 Unit(s) SQ QAM 02/05/2017 02/11/2017 Inactive lisinopril 10 mg tablet RxNorm: 556427 1 Tablet(s) PO daily 02/28/2017 Inactive atorvastatin 40 mg tablet RxNorm: 050421 1 Tablet(s) PO daily 02/01/2017 02/28/2017 Inactive doxycycline hyclate 100 mg capsule RxNorm: 9664979 1 Capsule(s) PO BID 02/01/2017 02/10/2017 Inactive clonazepam 1 mg tablet RxNorm: 640265 1 Tablet(s) PO Q8 as needed 10/09/2016 01/05/2017 Inactive ceftriaxone 1 gram solution for injection RxNorm: 3203528 Inj 10/06/2016 10/06/2016 Inactive cyclobenzaprine 10 mg tablet RxNorm: 898996 1/2-1 Tablet(s) PO TID PRN 07/18/2016 01/28/2017 Inactive clonazepam 1 mg tablet RxNorm: 250584 1 Tablet(s) PO Q8 as needed 05/31/2016 05/29/2016 Inactive clonazepam 1 mg tablet RxNorm: 000191 1 Tablet(s) PO Q8 as needed 05/31/2016 08/28/2016 Inactive Toujeo SoloStar 300 unit/mL (1.5 mL) subcutaneous insulin pen RxNorm: 1667676 10 Unit(s) SQ daily 05/23/2016 01/28/2017 Inactive Crestor 10 mg tablet RxNorm: 236062 1 Tablet(s) PO QHS 201501/28/2017 Inactive Crestor 10 mg tablet RxNorm: 781091 1 Tablet(s) PO QHS 201505/18/2016 Inactive clonazepam 1 mg tablet RxNorm: 654563 1 Tablet(s) PO Q8 as needed 04/25/2016 05/30/2016 Inactive prednisone 20 mg tablet RxNorm: 437529 3 Tablet(s) PO daily 06/201602/10/2016 Inactive prednisone 20 mg tablet RxNorm: 115223 3 Tablet(s) PO daily 06/201605/14/2016 Inactive Kenalog 40 mg/mL suspension for injection RxNorm: 6739643 Milliliter(s) Inj 01/20/2016 01/20/2016 Inactive aspirin 81 mg tablet,delayed release RxNorm: 245536 1 Tablet(s) PO daily No Start Date Active Brilinta 90 mg tablet RxNorm: 4297291 1 Tablet(s) PO BID No Start Date Active Coreg 6.25 mg tablet RxNorm: 154199 1 Tablet(s) PO BID No Start Date Active acetaminophen 500 mg tablet RxNorm: 686958 1-2 Tablet(s) PO as needed No Start Date Active clopidogrel 75 mg tablet RxNorm: 028347 1 Tablet(s) PO daily No Start Date 02/28/2017 Inactive Novolog Flexpen U-100 Insulin aspart 100 unit/mL subcutaneous RxNorm: 7591274 5 units with breakfast lunch and 10 supper Unit(s) SQ No Start Date 06/17/2018 Inactive clonazepam 1 mg tablet RxNorm: 040191 1 Tablet(s) PO QHS No Start Date 04/24/2016 Inactive acyclovir 400 mg tablet RxNorm: 344607 2 Tablet(s) PO 5x daily No Start Date 02/28/2017 Inactive Lyrica 50 mg capsule RxNorm: 543561 Capsule(s) PO BID No Start Date 06/09/2018 Inactive Vraylar 3 mg capsule RxNorm: 4949197 1 Capsule(s) PO daily No Start Date 03/12/2018 Inactive Medication Administered Medication Codes Instructions Start Date Status ketorolac 30 mg/mL injection solution RxNorm: 651794 2Milliliter 05/02/2018 No longer Active ceftriaxone 500 mg solution for injection RxNorm: 9933743 1Milliliter 02/16/2017 No longer Active Kenalog 40 mg/mL suspension for injection RxNorm: 6628664 1Milliliter 02/16/2017 No longer Active ceftriaxone 1 gram solution for injection RxNorm: 2951556 10/06/2016 No longer Active Kenalog 40 mg/mL suspension for injection RxNorm: 8067578 Milliliter 01/20/2016 No longer Active Immunizations Vaccine Codes Date Status Influenza CVX: 141 08/16/2017 completed Assessments Condition Codes Effective Dates Diarrhea, unspecified ICD-10: R19.7 ICD-9: 787.91 06/21/2018 Type 2 diabetes mellitus with hyperglycemia ICD-10: E11.65 ICD-9: 250.00 06/18/2018 Essential (primary) hypertension ICD-10: I10 ICD-9: 401.1 06/18/2018 Localized edema ICD-10: R60.0 ICD-9: 782.3 06/04/2018 Pain in right hip ICD-10: M25.551 ICD-9: 719.45 05/13/2018 Myalgia ICD-10: M79.1 ICD-9: 729.1 05/13/2018 Pain in left hip ICD-10: M25.552 ICD-9: 719.45 05/13/2018 Major depressive disorder, single episode, moderate ICD-10: F32.1 ICD-9: 296.22 04/29/2018 Bipolar disorder, current episode depressed, moderate ICD-10 : F31.32 ICD-9: 296.52 03/07/2018 Orthostatic hypotension ICD-10: I95.1 ICD-9: 458.0 03/07/2018 Other fatigue ICD-10: R53.83 ICD-9: 780.79 02/28/2018 Gastro-esophageal reflux disease without esophagitis ICD-10 : K21.9 ICD-9: 530.81 02/13/2018 Other malaise ICD-10: R53.81 ICD-9: 780.79 02/13/2018 Type 2 diabetes mellitus with foot ulcer ICD-10: E11.621 ICD-9: 250.80 01/29/2018 Pain in left shoulder ICD-10: M25.512 ICD-9: 719.41 08/27/2017 Pain in right shoulder ICD-10: M25.511 ICD-9: 719.41 08/27/2017 VACCIN FOR INFLUENZA ICD-10: Z23 ICD-9: V04.81 08/16/2017 Zoster without complications ICD-10: B02.9 ICD-9: 053.9 07/26/2017 Cellulitis of right lower limb ICD-10: L03.115 ICD-9: 682.7 07/03/2017 Laceration without foreign body of left forearm, initial encounter ICD-10: S51.812A ICD-9: 881.00 06/29/2017 Dysuria ICD-10: R30.0 ICD-9: 788.1 06/21/2017 Acute laryngopharyngitis ICD-10: J06.0 ICD-9: 465.0 06/07/2017 [...] For Visit Effective Dates Notes diabetes mellitus 06/18/2018 diabetes mellitus 06/04/2018 arthralgias/myalgias [...] Item Code Result Date C Diff An 99749644 GDH TNP:Lab Request 06/22/2018 C Diff An [id number] Toxin A/B TNP:Lab Request 06/22/2018 C Diff An [id number] C Diff Analyzer TNP:Lab Request 2017 C Diff An [id number] IC OK? TNP:Lab Request 06/22/2018 CBC [id number] WBC 6.4 10e9/L 05/02/2018 CBC 1267184 RBC 5.60 10e12/L 05/02/2018 CBC 8573036 HEMOGLOBIN 17.0 g/dL 05/02/2018 CBC 3312851 HEMATOCRIT 48.0 % 05/02/2018 CBC 9764309 MCV 85.7 fL 05/02/2018 CBC 3571944 MCH 30.4 pg 05/02/2018 CBC 4191865 MCHC 35.4 g/dL 05/02/2018 CBC 2124657 PLATELET COUNT 166 10e9/L 05/02/2018 CBC 9139240 Mean Plt Volume 11.6 fL 05/02/2018 CBC 0050207 Neut Auto 48.6 % 05/02/2018 CBC 2117678 Lymph Auto 41.7 % 05/02/2018 CBC 1853599 [place] Auto 8.1 % 05/02/2018 CBC 9074864 RDW 13.1 % 05/02/2018 CBC 0645932 Eos Auto 1.1 % 05/02/2018 CBC 7390169 Baso Auto 0.5 % 05/02/2018 CBC 6476907 Neutrophil Abs 3.11 10e9/L 05/02/2018 CBC 9465315 Lymphocyte Abs 2.67 10e9/L 05/02/2018 CBC 0606512 Monocyte Abs 0.52 10e9/L 05/02/2018 CBC 3281808 Eosinophil Abs 0.07 10e9/L 05/02/2018 CBC 0638656 RDW-SD 40.0 fL 05/02/2018 CBC 2918154 Basophil Abs 0.03 10e9/L 05/02/2018 CHEM 14 4835062 AST 17 U/L 05/02/2018 CHEM 14 4422314 ALT 17 U/L 05/02/2018 CHEM 14 7340643 BUN 17 mg/dL 05/02/2018 CHEM 14 2036097 ALBUMIN 4.0 g/dL 05/02/2018 CHEM 14 5432962 CHLORIDE 97 mmol/L 05/02/2018 CHEM 14 5307327 Bili Total 0.9 mg/dL 05/02/2018 CHEM 14 5210866 ALK PHOS 67 U/L 05/02/2018 CHEM 14 7306308 SODIUM 135 mmol/L 05/02/2018 CHEM 14 9802561 CREATININE 1.18 mg/dL 05/02/2018 CHEM 14 7650590 CALCIUM 9.4 mg/dL 05/02/2018 CHEM 14 8396195 POTASSIUM 4.4 mmol/L 05/02/2018 CHEM 14 6771861 TOTAL PROTEIN 6.9 g/dL 05/02/2018 CHEM 14 5412693 GLUCOSE 316 mg/dL 05/02/2018 CHEM 14 7310805 Bicarbonate 29 mmol/L 05/02/2018 CHEM 14 4942194 AGAP 9 mmol/L 05/02/2018 MEAN GLUC 0615003 Calc Mean Gluc 283 mg/dL 05/02/2018 A1C HPLC 0999207 Hgb A1c 12901-2 11.5 % 05/02/2018 GFR CALC 4693304 GFR Non Afr Amr >60 mL/min 05/02/2018 GFR CALC 9671933 GFR Afr Amr >60 mL/min 05/02/2018 [facility] Gold [id number] JI Gold Complete 02/28/2018 GFR CALC 8318119 GFR Non Afr Amr >60 mL/min 02/28/2018 GFR CALC 8387653 GFR Afr Amr >60 mL/min 02/28/2018 UA W/CII 4557347 UA Urine Appear Normal 02/28/2018 UA W/CII 2692289 UA Protein 1+ 02/28/2018 UA W/CII 6768857 UA Hemoglobin Negative 02/28/2018 UA W/CII 3414968 UA Glucose 4+ 02/28/2018 UA W/CII 4035740 UA Ketones Trace 02/28/2018 UA W/CII 6109201 UA pH 5.5 02/28/2018 UA W/CII 7531503 U Spec [place] 1.015 02/28/2018 UA W/CII 3376127 UA Bilirubin Negative 02/28/2018 UA W/CII 6817316 UA Nitrite NEG 02/28/2018 UA W/CII 4261535 UA Leuk Esteras Negative 02/28/2018 MICR 4871206 UA WBC/hpf 1 02/28/2018 MICR 3993782 UA RBC hpf 2 02/28/2018 MICR 5323663 UA WBC auto 3.8 /uL 02/28/2018 MICR 6193059 UA RBC auto 12.2 /uL 02/28/2018 MICR 3372290 UA SQ EPI auto 2.3 /uL 02/28/2018 MICR 3433014 UA H Cast auto 0.10 /uL 02/28/2018 CBC 1035657 WBC 6.4 10e9/L 02/28/2018 CBC 4934832 RBC 5.51 10e12/L 02/28/2018 CBC 2709323 HEMOGLOBIN 16.7 g/dL 02/28/2018 CBC 7983920 HEMATOCRIT 46.9 % 02/28/2018 CBC 6619269 MCV 85.1 fL 02/28/2018 CBC 9169196 MCH 30.3 pg 02/28/2018 CBC 6856907 MCHC 35.6 g/dL 02/28/2018 CBC 0513539 PLATELET COUNT 173 10e9/L 02/28/2018 CBC 2089479 Mean Plt Volume 11.6 fL 02/28/2018 CBC 7371258 Neut Auto 51.8 % 02/28/2018 CBC 0757233 Lymph Auto 39.9 % 02/28/2018 CBC 9206752 [place] Auto 7.3 % 02/28/2018 CBC 8439359 Eos Auto 0.8 % 02/28/2018 CBC 1246416 RDW 13.3 % 02/28/2018 CBC 0645653 Baso Auto 0.2 % 02/28/2018 CBC 9948863 Neutrophil Abs 3.32 10e9/L 02/28/2018 CBC 6774184 Lymphocyte Abs 2.55 10e9/L 02/28/2018 CBC 1712373 Monocyte Abs 0.47 10e9/L 02/28/2018 CBC 0013982 Eosinophil Abs 0.05 10e9/L 02/28/2018 CBC 8834306 Basophil Abs 0.01 10e9/L 02/28/2018 CBC 4616425 RDW-SD 40.8 fL 02/28/2018 CHEM 14 3886064 AST 17 U/L 02/28/2018 CHEM 14 9698503 ALT 17 U/L 02/28/2018 CHEM 14 4008046 BUN 20 mg/dL 02/28/2018 CHEM 14 7019688 ALBUMIN 4.1 g/dL 02/28/2018 CHEM 14 8656601 CHLORIDE 97 mmol/L 02/28/2018 CHEM 14 4998759 Bili Total 1.3 mg/dL 02/28/2018 CHEM 14 6830189 ALK PHOS 78 U/L 02/28/2018 CHEM 14 6263923 SODIUM 135 mmol/L 02/28/2018 CHEM 14 0479637 CREATININE 1.09 mg/dL 02/28/2018 CHEM 14 4779909 CALCIUM 9.6 mg/dL 02/28/2018 CHEM 14 3229983 POTASSIUM 3.8 mmol/L 02/28/2018 CHEM 14 3554537 TOTAL PROTEIN 7.3 g/dL 02/28/2018 CHEM 14 9641345 GLUCOSE 349 mg/dL 02/28/2018 CHEM 14 8463852 Bicarbonate 29 mmol/L 02/28/2018 CHEM 14 6245110 AGAP 9 mmol/L 02/28/2018 Fei Mtn Spot'D Fev Igg 916812 RMSF, IGG -TITER IFA <1:64 11/2016 [place] Spotted Fever Igg/Igm 585498 FEI MT SPOTTED FEVER IGM EIA . 09/05/2017 [place] Spotted Fever Igg/Igm 570652 RMSF, IGM 0.17 index 09/05/2017 [place] Spotted Fever Igg/Igm 380752 FEI MT SPOTTED FEVER IGG EIA FLEX . 09/05/2017 [place] Spotted Fever Igg/Igm 972347 RMSF, IGG SCREEN-FLEX Positive 09/05/2017 Ehrlichia Chaffeensis Antibody Igm 531639 EHRLICHIA CHAFFEENSIS IGM < 1:16 09/03/2017 Ehrlichia Chaffeensis Antibody Igg 264989 EHRLICHIA CHAFFEENSIS IGG <1:64 09/03/2017 Lymes Disease Total Antibodies With Western Blot Reflex B. BURGDORFERI, IGG/IGM 0.223 08/30/2017 Lymes Disease Total Antibodies With Western Blot Reflex C-Reactive Protein Qnt Crqnt CRP 0.00 mg/dl 08/27/2017 Sed Rate Ord21 ESR 8 mm/hr 08/27/2017 Comp Metabolic Zns480 NA 135 mEq/L 08/16/2017 Comp Metabolic Rsu290 K 4.1 mEq/L 08/16/2017 Comp Metabolic Jgt681 CL 98 mEq/L 08/16/2017 Comp Metabolic Qmy263 CO2 28.0 mEq/L 08/16/2017 Comp Metabolic Nqm284 ANION GAP 13 08/16/2017 Comp Metabolic Nsb813 GLUCOSE 299 mg/dL 08/16/2017 Comp Metabolic Yzf938 Creat 0.9 mg/dL 08/16/2017 Comp Metabolic Jne906 eGFR 90 ml/min/1.73m2 08/16/2017 Comp Metabolic Vzj899 BUN 20 mg/dL 08/16/2017 Comp Metabolic Yhx508 B/C Ratio 21.5 Ratio 08/16/2017 Comp Metabolic Qci238 CALCIUM 9.2 mg/dL 08/16/2017 Comp Metabolic Mer771 ALK PHOS 84 U/L 08/16/2017 Comp Metabolic Ezn514 AST(SGOT) 19 U/L 08/16/2017 Comp Metabolic Yoe748 ALT(SGPT) 24 U/L 08/16/2017 Comp Metabolic Jhr259 BILI T 1.1 mg/dL 08/16/2017 Comp Metabolic Cls034 ALBUMIN 4.2 g/dL 08/16/2017 Comp Metabolic Tvl097 TPRO 7.2 g/dL 08/16/2017 Comp Metabolic Pcn907 GLOB 3.0 g/dL 08/16/2017 Comp Metabolic Twn418 A/G Ratio 1.4 Ratio 08/16/2017 Comp Metabolic Hze823 Osmo 284 mOsmo 08/16/2017 %Hba1C Jei170 % HbA1c 91480-3 12.5 % 08/16/2017 %Hba1C Kmb351 Gluc Ave 312 mg/dL 08/16/2017 Urine Culture Ucult Complete NO Growth Day 2 06/23/2017 Urine Culture Ucult Preliminary NO Growth Day 1 06/23/2017 C RAP A SC [id number] Strep A Negative 06/08/2017 %Hba1C Gtp313 % HbA1c 41593-8 9.5 % 05/04/2017 %Hba1C Www857 Gluc Ave 226 mg/dL 05/04/2017 Tsh Ord6 [...] 89.9 fl 05/04/2017 Cbc With Differential Ord2 [place]% 8.5 % 05/04/2017 Cbc With Differential Ord2 [...] 2.48 K/ul 05/04/2017 Cbc With Differential Ord2 [place] ABS# 0.5 K/ul 05/04/2017 Cbc With Differential Ord2 Eos ABS# 0.1 K/ul 05/04/2017 Cbc With Differential Ord2 Baso ABS# 0.0 K/ul 05/04/2017 Comp Metabolic Orv647 NA 135 mEq/L 05/04/2017 Comp Metabolic Mqv461 K 4.2 mEq/L 05/04/2017 Comp Metabolic Jun466 CL 99 mEq/L 05/04/2017 Comp Metabolic Siw475 CO2 26.0 mEq/L 05/04/2017 Comp Metabolic Hue181 ANION GAP 14 05/04/2017 Comp Metabolic Zhq877 GLUCOSE 277 mg/dL 05/04/2017 Comp Metabolic Wft820 Creat 0.9 mg/dL 05/04/2017 Comp Metabolic Hex734 eGFR 96 ml/min/1.73m2 05/04/2017 Comp Metabolic Nql792 BUN 23 mg/dL 05/04/2017 Comp Metabolic Diz995 B/C Ratio 26.1 Ratio 05/04/2017 Comp Metabolic Lbo307 CALCIUM 8.9 mg/dL 05/04/2017 Comp Metabolic Dje658 ALK PHOS 81 U/L 05/04/2017 Comp Metabolic Knf241 AST(SGOT) 21 U/L 05/04/2017 Comp Metabolic Enb586 ALT(SGPT) 27 U/L 05/04/2017 Comp Metabolic Tgq241 BILI T 1.2 mg/dL 05/04/2017 Comp Metabolic Lil329 ALBUMIN 4.0 g/dL 05/04/2017 Comp Metabolic Hnc364 TPRO 6.7 g/dL 05/04/2017 Comp Metabolic Onx174 GLOB 2.7 g/dL 05/04/2017 Comp Metabolic Trc113 A/G Ratio 1.5 Ratio 05/04/2017 Comp Metabolic Iqw806 Osmo 284 mOsmo 05/04/2017 C A/B FLU 0026735 Influenza A Scr Negative 02/16/2017 C A/B FLU 9679063 Influenza B Scr Positive 02/16/2017 Cbc With [...] 39.7 % 05/23/2016 Cbc With Differential Ord2 [place]% 8.8 % 05/23/2016 Cbc With Differential Ord2 [...] 2.07 K/ul 05/23/2016 Cbc With Differential Ord2 [place] ABS# 0.5 K/ul 05/23/2016 Cbc With Differential Ord2 Eos ABS# 0.1 K/ul 05/23/2016 Cbc With Differential Ord2 Baso ABS# 0.0 K/ul 05/23/2016 Lipid Ord30 CHOL 397 mg/dL 05/17/2016 Lipid Ord30 HDL 48.0 mg/dl 05/17/2016 Lipid Ord30 TRIG 578 mg/dL 05/17/2016 Lipid Ord30 LDL Unable to calculate Due to elevated triglycerides mg/dL 05/17/2016 Lipid Ord30 C/HDL 8.3 Ratio 05/17/2016 %Hba1C Coj654 % HbA1c 17244-1 12.4 % 05/16/2016 %Hba1C Tmf823 Gluc Ave 309 mg/dL 05/16/2016 Cbc With [...] 87.4 fl 05/15/2016 Cbc With Differential Ord2 [place]% 7.8 % 05/15/2016 Cbc With Differential Ord2 [...] 2.04 K/ul 05/15/2016 Cbc With Differential Ord2 [place] ABS# 0.5 K/ul 05/15/2016 Cbc With Differential Ord2 Eos ABS# 0.1 K/ul 05/15/2016 Cbc With Differential Ord2 Baso ABS# 0.0 K/ul 05/15/2016 Tsh Ord6 hTSH II 1.70 uIU/mL 05/15/2016 Comp Metabolic Ghb609 NA 135 mEq/L 05/15/2016 Comp Metabolic Iug533 K 3.9 mEq/L 05/15/2016 Comp Metabolic Kpa546 CL 96 mEq/L 05/15/2016 Comp Metabolic Djo517 CO2 27.0 mEq/L 05/15/2016 Comp Metabolic Owe455 ANION GAP 16 05/15/2016 Comp Metabolic Gos976 GLUCOSE 183 mg/dL 05/15/2016 Comp Metabolic Hyp093 Creat 1.1 mg/dL 05/15/2016 Comp Metabolic Rlk581 eGFR 71 ml/min/1.73m2 05/15/2016 Comp Metabolic Hur506 BUN 17 mg/dL 05/15/2016 Comp Metabolic Fav955 B/C Ratio 14.9 Ratio 05/15/2016 Comp Metabolic Pgu118 CALCIUM 9.6 mg/dL 05/15/2016 Comp Metabolic Hcz440 ALK PHOS 100 U/L 05/15/2016 Comp Metabolic Wqg502 AST(SGOT) 20 U/L 05/15/2016 Comp Metabolic Yoc215 ALT(SGPT) 20 U/L 05/15/2016 Comp Metabolic Chw324 BILI T 1.3 mg/dL 05/15/2016 Comp Metabolic Xhz134 ALBUMIN 4.6 g/dL 05/15/2016 Comp Metabolic Xpw685 TPRO 8.1 g/dL 05/15/2016 Comp Metabolic Jfw727 GLOB 3.5 g/dL 05/15/2016 Comp Metabolic Gwu325 A/G Ratio 1.3 Ratio 05/15/2016 Comp Metabolic Zmo309 Osmo 276 mOsmo 05/15/2016 Review of Systems System Result Effective Dates Constitutional recent illness 06/18/2018 Constitutional No anorexia [...] of skin Location: face 05/04/2017 patch left syn[facility] Full Exam - General 1994 Constitutional general [...] clear 02/05/2017 None Full Exam - General 1995 Ears/Nose/Throat [...] rate 01/20/2016 None Procedures Procedure Codes Date KETOROLAC TROMETHAMINE INJ CPT-4: J1885 05/02/2018 FLU VAC NO PRSV 4 MENA 3 YRS+ CPT-4: 05267 08/16/2017 IMMUNIZATION ADMIN CPT -4: 79364 08/16/2017 URINALYSIS NONAUTO W/O SCOPE CPT-4: 57882 06/21/2017 TRIAMCINOLONE ACET INJ NOS CPT-4: J3301 05/04/2017 THER/PROPH/DIAG INJ SC/IM CPT-4: 67914 05/04/2017 TRIAMCINOLONE ACET INJ NOS CPT-4: J3301 02/16/2017 ROCEPHIN, PER 250 MG CPT-4: J0696 02/16/2017 ROCEPHIN, PER 250 MG CPT-4: J0696 10/06/2016 URINALYSIS NONAUTO W/O SCOPE CPT-4: 82595 07/18/2016 TRIAMCINOLONE ACET INJ NOS CPT-4: J3301 01/20/2016 Vital Signs Date Vital 06/18/2018 Blood Pressure 1: 138/82 Code : 8480-6 BMI: 31.8 Code : 00854-2 Heart Rate 1 : 82 bpm Height: 6'2" SpO2: 97% Weight: 248 lbs 06/04/2018 Blood Pressure 1: 128/84 Code : 8480-6 BMI: 33.9 Code : 61547-4 Heart Rate 1 : 86 bpm Height: 6'2" SpO2: 95% Weight: 264 lbs 05/13/2018 Blood Pressure 1: 130/80 Code : 8480-6 BMI: 31.1 Code : 53482-1 Heart Rate 1 : 100 bpm Height: 6'2" SpO2: 94% Weight: 242 lbs 05/02/2018 Blood Pressure 1: 134/84 Code : 8480-6 BMI: 31.2 Code : 84740-6 Heart Rate 1 : 93 bpm Height: 6'2" SpO2: 98% Weight: 243 lbs 04/29/2018 Blood Pressure 1: 142/88 Code : 8480-6 BMI: 31.6 Code : 96331-2 Heart Rate 1 : 96 bpm Height: 6'2" SpO2: 96% Temperature: 36.7 (C) / 98.1 (F) Weight: 246 lbs 03/13/2018 Blood Pressure 1: 120/76 Code : 8480-6 BMI: 30.9 Code : 48408-0 Heart Rate 1 : 112 bpm Height: 6'2" SpO2: 97% Weight: 241 lbs 03/07/2018 Blood Pressure 1: 108/78 Code : 8480-6 BMI: 30.0 Code : 15336-5 Heart Rate 1 : 87 bpm Height: 6'2" SpO2: 98% Weight: 234 lbs 02/28/2018 Blood Pressure 1: 106/74 Code : 8480-6 BMI: 30.0 Code : 18013-9 Heart Rate 1 : 101 bpm Height: 6'2" SpO2: 98% Temperature: 36.4 (C) / 97.5 (F) Weight: 234 lbs 02/13/2018 Blood Pressure 1: 110/78 Code : 8480-6 BMI: 30.0 Code : 58540-4 Heart Rate 1 : 106 bpm Height: 6'2" SpO2: 98% Weight: 234 lbs 01/29/2018 Blood Pressure 1: 106/68 Code : 8480-6 BMI: 30.0 Code : 13080-3 Heart Rate 1 : 108 bpm Height: 6'2" SpO2: 98% Weight: 234 lbs 08/27/2017 Blood Pressure 1: 134/76 Code : 8480-6 Heart Rate 1: 98 bpm Height: SpO2: 97% Weight: 08/16/2017 Blood Pressure 1: 128/80 Code : 8480-6 BMI: 32.0 Code : 82229-8 Heart Rate 1 : 94 bpm Height: [...] Code : 8480-6 BMI: 31.8 Code : 19630-1 Heart Rate 1 : 102 bpm Height: [...] Code : 8480-6 BMI: 31.8 Code : 78839-0 Heart Rate 1 : 85 bpm Height: 6'2" SpO2: 96% Temperature: 36.6 (C) / 97.9 (F) Weight: 248 lbs 02/12/2017 Blood Pressure 1: 126/76 Code : 8480-6 BMI: 31.8 Code : 89766-0 Heart Rate 1 : 106 bpm Height: 6'2" SpO2: 91% Weight: 248 lbs 02/05/2017 Blood Pressure 1: 146/86 Code : 8480-6 BMI: 31.9 Code : 82511-9 Heart Rate 1 : 98 bpm Height: 6'2" SpO2: 87% Temperature: 36.7 (C) / 98.0 (F) Weight: 248 lbs 8 oz 01/29/2017 Blood Pressure 1: 132/84 Code : 8480-6 BMI: 31.8 Code : 29201-3 Heart Rate 1 : 83 bpm Height: 6'2" SpO2: 97% Weight: 248 lbs 10/13/2016 Blood Pressure 1: 128/72 Code : 8480-6 Heart Rate 1: 86 bpm SpO2: 94% 10/09/2016 Blood Pressure 1: 128/68 Code : 8480-6 Heart Rate 1: 136 bpm SpO2: 94% Temperature: 36.8 (C) / 98.2 (F) 10/06/2016 Blood Pressure 1: 140/80 Code : 8480-6 BMI: 32.1 Code : 01956-1 Heart Rate 1 : 94 bpm Height: 6'2" SpO2: 95% Weight: 250 lbs 07/18/2016 Blood Pressure 1: 128/86 Code : 8480-6 BMI: 32.1 Code : 94327-3 Heart Rate 1 : 89 bpm Height: 6'2" SpO2: 96% Weight: 250 lbs 06/22/2016 Blood Pressure 1: 118/70 Code : 8480-6 BMI: 32.1 Code : 90695-4 Heart Rate 1 : 70 bpm Height: 6'2" SpO2: 97% Weight: 250 lbs 05/23/2016 Blood Pressure 1: 128/80 Code : 8480-6 BMI: 32.1 Code : 93371-9 Heart Rate 1 : 76 bpm Height: 6'2" SpO2: 98% Weight: 250 lbs 05/15/2016 Blood Pressure 1: 110/90 Code : 8480-6 BMI: 31.3 Code : 55311-8 Heart Rate 1 : 111 bpm Height: 6'2" SpO2: 97% Temperature: 36.6 (C) / 97.8 (F) Weight: 244 lbs 01/20/2016 Blood Pressure 1: 128/76 Code : 8480-6 BMI: 33.0 Code : 72632-7 Heart Rate 1 : 103 bpm Height: [...] data Encounters Encounter Performer Location Codes Date ([id number]) 80905 EST. PATIENT, LEVEL IV Diagnosis: Type 2 diabetes mellitus with hyperglycemia[ICD10: E11.65] Diagnosis: Essential (primary) hypertension[ICD10: I10] Melida Ha MD, [facility] CPT-4: 08513 06/18/2018 ([id number]) 00043 EST. PATIENT, LEVEL IV Diagnosis: Type 2 diabetes mellitus with hyperglycemia[ICD10: E11.65] Diagnosis: Essential (primary) hypertension[ICD10: I10] Diagnosis: Localized edema[ICD10: R60.0] Melida Ha MD, [facility] CPT- 4: 61838 06/04/2018 ([id number]) 50959 EST. PATIENT, LEVEL III Diagnosis: Type 2 diabetes mellitus with hyperglycemia[ICD10: E11.65] Diagnosis: Myalgia[ICD10: M79.1] Diagnosis: Pain in right hip[ICD10: M25.551] Diagnosis: Pain in left hip[ICD10: M25.552] Marcela Ha MD, [facility] CPT-4: 44156 05/13/2018 ([id number]) 70155 EST. PATIENT, LEVEL III Diagnosis: Myalgia[ICD10: M79.1] Diagnosis: Pain in right hip[ICD10: M25.551] Diagnosis: Pain in left hip[ICD10: M25.552] Marcela Ha MD, [facility] CPT-4: 74212 05/02/2018 ([id number]) 76305 EST. PATIENT, LEVEL IV Diagnosis: Essential (primary) hypertension[ICD10: I10] Diagnosis: Type 2 diabetes mellitus with hyperglycemia[ICD10: E11.65] Diagnosis: Major depressive disorder, single episode, moderate[ICD10: F32.1] Diagnosis: Myalgia[ICD10: M79.1] Marcela Ha MD, [facility] CPT-4: 33450 04/29/2018 ([id number]) 83732 EST. PATIENT, LEVEL IV Diagnosis: Type 2 diabetes mellitus with hyperglycemia[ICD10: E11.65] Diagnosis: Essential (primary) hypertension[ICD10: I10] Diagnosis: Major depressive disorder, single episode, moderate[ICD10: F32.1] Melida Ha MD, [facility] CPT-4: 59544 03/13/2018 ([id number]) 24031 EST. PATIENT, LEVEL III Diagnosis: Type 2 diabetes mellitus with hyperglycemia[ICD10: E11.65] Diagnosis: Bipolar disorder, current episode depressed, moderate[ICD10: F31.32] Diagnosis: Orthostatic hypotension[ICD10: I95.1] Marcela Ha MD, [facility] CPT-4: 04197 03/07/2018 ([id number]) 73966 EST. PATIENT, LEVEL IV Diagnosis: Type 2 diabetes mellitus with hyperglycemia[ICD10: E11.65] Diagnosis: Major depressive disorder, single episode, moderate[ICD10: F32.1] Diagnosis: Orthostatic hypotension[ICD10: I95.1] Diagnosis: Other fatigue[ICD10: R53.83] Marcela Ha MD, [facility] CPT-4: 52783 02/28/2018 [id number] EST. PATIENT, LEVEL IV Diagnosis: Other fatigue[ICD10: R53.83] Diagnosis: Other malaise[ICD10: R53.81] Diagnosis: Gastro-esophageal reflux disease without esophagitis[ICD10: K21.9] Madeline Ha MD, [facility] CPT-4: 23705 02/13/2018 ([id number]) 79881 EST. PATIENT, LEVEL IV Diagnosis: Type 2 diabetes mellitus with foot ulcer[ICD10: E11.621] Diagnosis: Essential (primary) hypertension[ICD10: I10] Diagnosis: Gastro-esophageal reflux disease without esophagitis[ICD10: K21.9] Marcela Ha MD, [facility] CPT-4: 11479 01/29/2018 12636 EST. PATIENT, LEVEL III Diagnosis: Other malaise[ICD10: R53.81] Diagnosis: Other fatigue[ICD10: R53.83] Diagnosis: Pain in right shoulder[ICD10: M25.511] Diagnosis: Pain in left shoulder[ICD10: M25.512] Madeline Ha MD, [facility] CPT-4: 08654 08/27/2017 ([id number]) 79723 EST. PATIENT, LEVEL IV Diagnosis: Essential (primary) hypertension[ICD10: I10] Diagnosis: Type 2 diabetes mellitus with hyperglycemia[ICD10: E11.65] Diagnosis: VACCIN FOR INFLUENZA[ICD10: Z23] Melida Ha MD, [facility] CPT-4: 59324 08/16/2017 57513 EST. PATIENT, LEVEL III Diagnosis: Zoster without complications[ICD10: B02.9] Madeline Ha MD, [facility] CPT-4: 77595 07/26/2017 ([id number]) 31220 EST. PATIENT, LEVEL III Diagnosis: Cellulitis of right lower limb[ICD10: L03.115] Marcela Ha MD, [facility] CPT-4: 89369 07/03/2017 68573 EST. PATIENT, LEVEL II Diagnosis: Laceration without foreign body of left forearm, initial encounter[ ICD10: S51.812A] Marcela Ha MD, [facility] CPT-4: 06433 06/29/2017 ([id number]) 10601 EST. PATIENT, LEVEL III Diagnosis: Cellulitis of right lower limb[ICD10: L03.115] Diagnosis: Type 2 diabetes mellitus with foot ulcer[ICD10: E11.621] Marcela Ha MD , [facility] CPT-4: 92320 06/18/2017 ([id number]) 86402 EST. PATIENT, LEVEL IV Diagnosis: Cellulitis of right lower limb[ICD10: L03.115] Diagnosis: Acute laryngopharyngitis[ICD10: J06.0] Diagnosis: Gastro-esophageal reflux disease without esophagitis[ICD10: K21.9] Marcela Ha MD, [facility] CPT-4: 95493 06/07/2017 ([id number]) 98747 EST. PATIENT, LEVEL III Diagnosis: Type 2 diabetes mellitus with hyperglycemia[ICD10: E11.65] Diagnosis: Insect bite (nonvenomous) of abdominal wall, initial encounter[ICD10 : S30.861A] Marcela Ha MD, [facility] CPT-4: 79596 05/17/2017 ([id number]) 94600 EST. PATIENT, LEVEL III Diagnosis: Allergic contact dermatitis due to plants, except food[ICD10: L23.7] Melida Ha MD, [facility] CPT-4: 11603 05/04/2017 ([id number]) 54691 EST. PATIENT, LEVEL III Diagnosis: Essential (primary) hypertension[ICD10: I10] Marcela Ha MD, [facility] CPT-4: 25390 03/15/2017 ([id number]) 70291 EST. PATIENT, LEVEL III Diagnosis: Cough[ICD10: R05] Diagnosis: Essential (primary) hypertension[ICD10: I10] Marcela Ha MD [facility] CPT-4: 20713 03/01/2017 ([id number]) 59868 EST. PATIENT, LEVEL III Diagnosis: Cough[ICD10: R05] Diagnosis: Nasal congestion[ICD10: R09.81] Diagnosis: Acute recurrent maxillary sinusitis[ICD10: J01.01] Marcela Ha MD [facility] CPT-4: 92395 02/16/2017 ([id number]) 68792 EST. PATIENT, LEVEL III Diagnosis: Type 2 diabetes mellitus with hyperglycemia[ICD10: E11.65] Marcela Ha MD [facility] CPT-4: 44985 02/12/2017 ([id number]) 20279 EST. PATIENT, LEVEL IV Diagnosis: Type 2 diabetes mellitus with hyperglycemia[ICD10: E11.65] Diagnosis: Muscle weakness (generalized)[ICD10: M62.81] Diagnosis: Disorientation, unspecified[ICD10: R41.0] Marcela Ha MD, [facility] CPT-4: 20246 02/05/2017 ([id number]) Patient admitted to the hospital from clinic (NO CHARGE) Diagnosis: Type 2 diabetes mellitus with hyperglycemia[ICD10: E11.65] Diagnosis: Disorientation, unspecified[ICD10: R41.0] Diagnosis: Muscle weakness (generalized)[ICD10: M62.81] Marcela Ha MD, [facility] CPT-4: 75986Y 01/29/2017 ([id number]) Miscellaneous no charge Diagnosis: Cellulitis of right lower limb[ICD10: L03.115] Marcela Ha MD, [facility] CPT-4: 40969 10/13/2016 ([id number]) Miscellaneous no charge Diagnosis: Type 2 diabetes mellitus with foot ulcer[ICD10: E11.621] Diagnosis: Pain in right foot[ICD10: M79.671] Marcela Ha MD, [facility] CPT-4: 05782 10/09/2016 96967 EST. PATIENT, LEVEL II Diagnosis: Cellulitis of right lower limb[ICD10: L03.115] Marcela Ha MD, [facility] CPT-4: 11826 10/06/2016 ([id number]) 38911 EST. PATIENT, LEVEL IV Diagnosis: Low back pain[ICD10: M54.5] Diagnosis: Other deformities of toe(s) (acquired), left foot[ICD10: M20.5X2] Diagnosis: Type 2 diabetes mellitus with foot ulcer[ICD10: E11.621] Marcela Ha MD [facility] CPT-4: 77305 07/18/2016 ([id number]) 20865 EST. PATIENT, LEVEL III Diagnosis: Type 2 diabetes mellitus with hyperglycemia[ICD10: E11.65] CONSTANTINO Griffin MD CPT-4: 97875 06/22/2016 ([id number]) 92236 EST. PATIENT, LEVEL IV Diagnosis: Type 2 diabetes mellitus with hyperglycemia[ICD10: E11.65] Diagnosis: Mixed hyperlipidemia[ICD10: E78.2] Diagnosis: Other hemoglobinopathies[ICD10: D58.2] Marcela Ha MD [facility] CPT-4: 52834 05/23/2016 ([id number]) 93178 EST. PATIENT, LEVEL IV Diagnosis: Type 2 diabetes mellitus with other specified complication[ICD10: E11.69] Diagnosis: Dehydration[ICD10: E86.0] Marcela Ha MD [facility] CPT-4: 83037 05/15/2016 ([id number]) OFFICE VISIT, NEW - LEVEL 3 Diagnosis: Allergic contact dermatitis due to plants, except food[ICD10: L23.7] Madeline Ha MD [facility] CPT-4: 17024 01/20/2016 Plan of Care Planned Activity Notes Codes Status Date Patient Education: Patient Medication Summary Completed 06/21/2018 Care Plan: C CDIFF SC Pending 06/21/2018 Visit Plan: Diabetes Mellitus - [...] home. 06/18/2018 [facility]ment[phone] [facility] (15 min) Moderate 06/18/2018 Patient Education: Patient [...] improves. 06/04/2018 Appointment: [phone] [facility] (15 min) Moderate 06/04/2018 Patient Education: Patient [...] allow for greater blood glucose control. Joint koqq-ymgelxgt-kvubacw- symptoms have improved -stop meloxicam due to upset stomach-call if symptoms return 05/13/2018 Appointment: Marcela Oshea WPtel: [phone] [place] (30 min) Complex 05/13/2018 Patient Education: Patient Medication Summary Completed 05/13/2018 Visit Plan: Bilateral hip ywyc-xyfjqxht-tevebnb IM injection administered today for c/o continued myalgia/arthralgia. Patient to start taking Meloxicam 15mg PO daily. Advised to return to clinic if symptoms do not improve. 05/02/2018 Appointment: Marcela Oshea WPtel: [phone] (30 min) Complex 05/02/2018 Patient Education: Patient [...] readings at home. Diabetes Mellitus -check labs Mhlwogmo-spuenxy-bcks bite-rx for doxycycline-follow up in 2 weeks 04/29/2018 Appointment: Marcela Oshea WPtel: [phone] (15 min) Moderate 04/29/2018 Patient Education: Patient Medication Summary Completed 04/29/2018 Appointment: Melida Ha WPtel: [address] [place], [place] [address] (15 min) Moderate 04/15/2018 Appointment: Marcela Oshea WPtel: [address] [place], [place] [phone] (30 min) Complex 03/21/2018 Visit Plan: Hypertension [...] on cymbalta 03/13/2018 Appointment: Melida Ha WPtel: [facility] (30 min) Complex 03/13/2018 Patient Education: Patient Medication Summary Completed 03/13/2018 Visit Plan: DM-continue same medications-monitor blood sugars routinely as directed -rx for new glucometer and test strips provided Bipolar-currently depressed-patient start on vraylar-follow up in 2 weeks, sooner if needed. Patient and verbalied understanding of plan. Hypotension- stay off losartan 03/07/2018 Appointment: [phone] [phone] (30 min) Complex 03/07/2018 Patient Education: Patient Medication Summary Completed 03/07/2018 Appointment: [facility]el[facility] [phone] [facility] (15 min) Moderate 03/04/2018 Visit Plan: Hypotension-continue [...] 02/28/2018 Appointment: [facility] [phone] [phone] (30 min) Complex 02/28/2018 Patient Education: Patient [...] not improving. 02/13/2018 Appointment: Madeline Kennedy WPtel: [facility] (15 min) Moderate 02/13/2018 Patient Education: Patient Medication Summary Completed 02/13/2018 Referral: Sun Glynn Patient informed. Referral info faxed. Completed Visit Plan: DM-weight loss-not checking blood sugars- patient sent for labs today HTN-low gzgon-butzehh-npisr labs Callus of foot and fissue of [...] 01/29/2018 Appointment: [facility] [phone] [phone] (30 min) Complex 01/29/2018 Patient Education: Patient Medication Summary Completed 01/29/2018 Care Plan: Comp Metabolic Cancelled 01/29/2018 Care Plan: Cbc With Differential Cancelled 01/29/2018 Care Plan: %Hba1C LOINC : 35259-3 Cancelled 01/29/2018 Care Plan: Referral Order SNOMED-CT : [id number] Cancelled 01/29/2018 Visit Plan: Fatigue, malaise, joint [...] or concerns. 08/27/2017 Appointment: Madeline Kennedy WPtel: [facility] (15 min) Moderate 08/27/2017 Patient Education: Patient [...] today - 08/16/2017 Appointment: Melida Ha WPtel: [phone] (30 min) Complex 08/16/2017 Patient Education: Patient Medication Summary Completed 08/16/2017 Patient Education: Obesity Completed 08/16/2017 Appointment: Madeline Kennedy WPtel: [facility] [place] (30 min) Complex 08/07/2017 Visit Plan: Shingles [...] considered contagious. 07/26/2017 Appointment: Madeline Kennedy WPtel: [facility] (15 min) Moderate 07/26/2017 Patient Education: Patient Medication Summary Completed 07/26/2017 Visit Plan: Cellulitis right foot-cultured today in the office-home health to reapply wound vac--appt with wound care on to evaluate for debridement- 07/03/2017 Appointment: Marcela Oshea WPtel: [phone] (30 min) Complex 07/03/2017 Patient Education: Patient Medication Summary Completed 07/03/2017 Visit Plan: Abrasion left arm - Pt was instructed to keep the wound clean, wash with antibacterial soap, use triple antibiotic ointment, call if redness, pustular drainage, or any other acute concerns. 06/29/2017 Appointment: Marcela Oshea WPtel: [phone] (15 min) Moderate 06/29/2017 Patient Education: Patient [...] of plan. 06/18/2017 Appointment: Marcela Oshea WPtel: [phone] (15 min) Moderate 06/18/2017 Patient Education: Patient [...] diet-start prilosec 06/07/2017 Appointment: Marcela Oshea WPtel: [address] [place], [place] [phone] (10 min) Simple 06/07/2017 Patient Education: Patient [...] bite-continue doxycycline 05/17/2017 Appointment: Marcela Oshea WPtel: [phone] (30 min) Complex 05/17/2017 Patient Education: Patient [...] as directed- call if you want blue rosieo called into [facility]. 05/04/2017 Appointment: Marcel[facility]Ptel[facility] [phone] [phone] (30 min) Complex 05/04/2017 Patient Education: Patient [...] home. Cough-resolved 03/15/2017 Appointment: Marcela Oshea WPtel: [phone] [phone] (15 min) Moderate 03/15/2017 Patient Education: Patient Medication Summary Completed 03/15/2017 Appointment: Marcela Oshea WPtel: [phone] [phone] (30 min) Complex 03/12/2017 Visit Plan: Feng [...] discussed 02/16/2017 Appointment: Marcela Oshea WPtel: [phone] [phone] (15 min) Moderate 02/16/2017 Patient Education: Patient [...] controlled. 02/12/2017 Appointment: Marcela Oshea WPtel: [phone] [phone] [place] (30 min) Complex 02/12/2017 Patient Education: Patient Medication Summary Completed 02/12/2017 Appointment: Marcela Oshea WPtel: [phone] [place] (30 min) Complex 02/06/2017 Visit Plan: [...] will consider 02/05/2017 Appointment: Marcela Oshea WPtel: [phone] [place] (30 min) Complex 02/05/2017 Patient Education: Patient Medication Summary Completed 02/05/2017 Appointment: Marcela Oshea WPtel[phone] [place] (30 min) Complex 01/30/2017 Visit Plan: Acute confusion-uncontrolled diabetes- chronically noncompliant with treatment and stopped his insulin several months ago-r/o stroke vs DKA-Dr Ha in to evaluate patient-plan to admit for further work up and treatment-patient's called and she transported him to the hospital 01/29/2017 Appointment: Marcela Oshea WPtel: [phone] [place] (30 min) Complex 01/29/2017 Patient Education: Patient Medication Summary Completed 01/29/2017 Patient Education: Obesity Completed 01/29/2017 Visit Plan: Right foot pain-MRI shows foreign body-appt with Dr Grewal for evaluation on Sunday. 10/13/2016 Appointment: Marcela Oshea WPtel: [phone] [phone] [place] (15 min) Moderate 10/13/2016 Patient Education: Patient Medication Summary Completed 10/13/2016 Appointment: Marcela Oshea WPtel: [address] [place], [place] [phone] (30 min) Complex 10/12/2016 Visit Plan: Right foot enhl-ghhxflrx-mpxla washer dropped on foot-xray negative but pain continues to increase-recommend MRI of foot for further evaluation-refer to wound care for lesions on right foot, patient has diabetes and history of osteomyelitis-culture obtained today-continue oral abx- follow up in the office on , sooner if needed 10/09/2016 Visit Plan: Right foot evrd-dvkanfud-igmpk washer dropped on foot-xray negative but pain continues to increase-recommend MRI of foot for further evaluation-refer to wound care for lesions on right foot, patient has diabetes and history of osteomyelitis-culture obtained today-continue oral abx- follow up in the office on , sooner if needed 10/09/2016 Visit Plan: Right foot zgzn-dhjfivew-uxjbg washer dropped on foot-xray negative but pain continues to increase-recommend MRI of foot for further evaluation-refer to wound care for lesions on right foot, patient has diabetes and history of osteomyelitis-culture obtained today-continue oral abx- follow up in the office on , sooner if needed 10/09/2016 Appointment: Marcela Oshea WPtel: [address] [place], [place] [phone] (30 min) Complex 10/09/2016 Patient Education: Patient Medication Summary Completed 10/09/2016 Visit Plan: Cellulitis - continue with oral antibiotics as previously directed, return to clinic as previously directed, call for acute change in symptoms, worsening redness, warmth, discharge. 10/06/2016 Appointment: Marcela Oshea WPtel: [address] [place], [place] [phone] [place] (10 min) Simple 10/06/2016 Patient Education: Patient Medication Summary Completed 10/06/2016 Appointment: Marcela Oshea WPtel: [address] [place], [place] [phone] (30 min) Complex 08/24/2016 Referral: Sun Glynn Referral Completed 07/21/2016 Visit Plan: Low back pain- history of spinal fusion- patient for xray lumbar spine-RX sent to [facility] pharmacy and instructed on use-topical voltaren samples provided and instructed on use. Ok to use tylenol as needed as well. The patient is to call the office if the pain is worsening or does not improve. Pressure ulcer left 4th toe-refer to Dr Glynn for evaluation 07/18/2016 Appointment: Marcela Oshea WPtel: [address] [facility] [place] [address] (30 min) Complex 07/18/2016 Patient Education: Patient Medication Summary Completed 07/18/2016 Patient Education: Obesity Completed 07/18/2016 Care Plan: Referral Order SNOMED-CT : [id number] Cancelled 07/18/2016 Visit Plan: Diabetes Mellitus - [...] control. 06/22/2016 Appointment: Marcela Oshea WPtel: [phone] [phone] (30 min) Complex 06/22/2016 Patient Education: Patient [...] today 05/23/2016 Appointment: Marcela Oshea WPtel: [phone] [phone] (30 min) Complex 05/23/2016 Patient Education: Patient [...] of plan. 05/15/2016 Appointment: [phone] (15 min) Moderate 05/15/2016 Patient Education: [...] change in blood pressure readings at home. REPEAT CBC Toujeo 10 units daily . [...] you want blue rosieo called into [facility]. xray lumbar spine flexeril as needed voltaren gel ulcer left 4th toe-refer to [facility] . Low back pain- history of spinal fusion-patient for xray lumbar spine-RX sent to [facility] pharmacy and instructed on use-topical voltaren [...] controlled. check HgbA1c flu shot today - continue oral antibiotic start using topical antibiotic ointment to scabbed areas and cover with dressing follow up , sooner if needed refer to wound care mri left foot due to increased pain -concern for fracture from injury . Right foot trnw-wbekafuv-oesjj washer dropped on foot-xray negative but pain [...] for fracture from injury . Right foot txkc-pycsqedv-ifgvq washer dropped on foot-xray negative but pain [...] for fracture from injury . Right foot xclo-pnakdbeu-gbijr washer dropped on foot-xray negative but pain continues to increase-recommend MRI of foot for further evaluation-refer to wound care for lesions on right foot, patient has diabetes and history of osteomyelitis-culture obtained today-continue oral abx-follow up in the office on , sooner if needed . Bilateral hip wrug-kdxuqpqg-adjklsa IM injection administered today for c/o continued myalgia/arthralgia. Patient to start taking Meloxicam 15mg PO daily. Advised to return to clinic if symptoms do not improve. . DM-weight loss-not checking blood sugars-patient sent for labs today HTN-low abqbe-wquprfb-snllq labs Callus of foot and fissue of [...] readings are starting to become less controlled. Hfkrqovit-qltlbfpa-lbefwuwn to monitor Generalized weakness-refer for PT-patient refuses [...] allow for greater blood glucose control. Joint nbtd-lnjbxxsb-cqsdqbt-symptoms have improved -stop meloxicam due to upset [...] and she transported him to the hospital STOP LISINOPRIL DUE TO COUGH -START LOSARTAN [...] office if the symptoms are not improving. INCREASE FLUIDS-RECOMMEND G2 GATORADE-CHECK LABS TODAY IF [...] readings at home. Diabetes Mellitus -check labs Akothuzg-nbqgbvr-jeow bite-rx for doxycycline-follow up in 2 weeks [...]
--- OUTSIDE RECORDS SUMMARY | 2018-10-20 11:16 | XMS REPORT | CCD ---
Author Author Madeline Kennedy MD, [facility] Address [address] [place] [address] Phone Care Team Providers Care [place] Bottom Maker Name Role Phone PP Unavailable CCM Unavailable Summary Purpose Interface Exchange Insurance Providers Payer name Policy type / Coverage type Covered libertarian ID Effective Begin Date Effective End Date Blue Cross Blue Shield [facility] Blue Cross/Blue Shield [id number] Unknown Family history Father Diagnosis Age At Onset Hyperlipidemia Unknown Heart Attack Unknown Mother Diagnosis Age At Onset Hypertension Unknown Social History Social History Element Codes Description Effective Dates Marital status Unknown Mignon 01/20/2016 Number of children Unknown 4 01/20/2016 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/[address]: 396949821 Never smoker 01/20/[address]: 708229163 Never drinks alcohol 01/20/2016 Allergies, Adverse Reactions, [...] Start Date Stop Date Status Fill Instructions Novolog Flexpen U-100 Insulin aspart 100 unit/mL subcutaneous RxNorm: 9499155 10 Unit(s) SQ AC 06/18/20182017 Active this is an update on his medication Lasix 20 mg tablet RxNorm: 948839 1 Tablet(s) PO BIW 201710/09/2018 Active atorvastatin 80 mg tablet RxNorm: 391372 1 Tablet(s) PO QHS 04/201812/06/2018 Active clonazepam 1 mg tablet RxNorm: 673250 2 Tablet(s) PO HS 201706/04/2019 Active clonazepam 1 mg tablet RxNorm: 122592 2 Tablet(s) PO HS as needed 06/10/2018 06/09/2018 Inactive Lyrica 50 mg capsule RxNorm: 271653 Capsule(s) PO daily 201706/23/2018 Inactive Lasix 20 mg tablet RxNorm: 555963 1 Tablet(s) PO TIW 201706/11/2018 Inactive Toujeo SoloStar U-300 Insulin 300 unit/mL (1.5 mL) subcutaneous pen RxNorm: 2878579 50 Unit(s) SQ daily 05/07/2018 No Stop Date Active meloxicam 15 mg tablet RxNorm: 500165 15 Milligram(s) PO daily 05/02/2018 05/12/2018 Inactive ketorolac 30 mg/mL injection solution RxNorm: 878020 2 Milliliter(s) Inj 05/02/2018 05/02/2018 Inactive Toujeo SoloStar U-300 Insulin 300 unit/mL (1.5 mL) subcutaneous pen RxNorm: 2120944 45 Unit(s) daily 04/29/2018 Inactive clonazepam 1 mg tablet RxNorm: 314733 1 Tablet(s) PO Q8 as needed 04/29/2018 06/09/2018 Inactive doxycycline hyclate 100 mg tablet RxNorm: 1734984 1 Tablet(s) PO BID 04/29/2018 05/12/2018 Inactive Cymbalta 30 mg capsule,delayed release RxNorm: 792175 1 Capsule(s) PO QAM 03/13/2018 10/08/2018 Active Lexapro 10 mg tablet RxNorm: 604787 1 Tablet(s) PO QPM 201703/03/2018 Inactive Toujeo SoloStar U-300 Insulin 300 unit/mL (1.5 mL) subcutaneous pen RxNorm: 5517569 20 Unit(s) daily 02/28/2018 Inactive Protonix 40 mg tablet,delayed release RxNorm: 381256 1 Tablet(s) PO daily 01/29/2018 06/09/2018 Inactive clonazepam 1 mg tablet RxNorm: 070454 1 Tablet(s) PO Q8 as needed 12/12/2017 03/10/2018 Inactive Tamiflu 75 mg capsule RxNorm: 824031 1 Capsule(s) PO BID 201712/03/2017 Inactive doxycycline hyclate 100 mg capsule RxNorm: 5199425 1 Capsule(s) PO BID 09/07/2017 09/20/2017 Inactive doxycycline hyclate 100 mg capsule RxNorm: 1802018 1 Capsule(s) PO BID 08/27/2017 09/06/2017 Inactive prednisone 20 mg tablet RxNorm: 115410 2 Tablet(s) PO daily 08/31/2017 Inactive clopidogrel 75 mg tablet RxNorm: 331831 1 Tablet(s) PO daily 06/09/2018 Inactive atorvastatin 40 mg tablet RxNorm: 199509 1 Tablet(s) PO QHS 02/27/2018 Inactive losartan 25 mg tablet RxNorm: 731695 TAKE ONE TABLET BY MOUTH DAILY 08/22/2017 06/09/2018 Inactive Toujeo SoloStar 300 unit/mL (1.5 mL) subcutaneous insulin pen RxNorm: 4592767 45 Unit(s) daily 08/17/2017 08/20/2017 Inactive mupirocin 2 % topical ointment RxNorm: 848527 1 Application TOP TID to the lesions on chest 08/16/2017 08/25/2017 Inactive Toujeo SoloStar 300 unit/mL (1.5 mL) subcutaneous insulin pen RxNorm: 8853934 40 Unit(s) daily 08/16/2017 08/16/2017 Inactive valacyclovir 1 gram tablet RxNorm: 105340 1 Tablet(s) PO TID 08/01/2017 Inactive clonazepam 1 mg tablet RxNorm: 824223 1 Tablet(s) PO Q8 as needed 07/03/2017 09/30/2017 Inactive Levaquin 500 mg tablet RxNorm: 339643 1 Tablet(s) PO daily 06/25/2017 Inactive Levaquin 500 mg tablet RxNorm: 164782 1 Tablet(s) PO daily 06/21/2017 Inactive losartan 25 mg tablet RxNorm: 420570 1 Tablet(s) PO daily 201608/16/2017 Inactive nystatin 100,000 unit/mL oral suspension RxNorm: 161238 5 Milliliter(s) PO QID Swish et swallow 06/18/2017 06/17/2017 Inactive nystatin 100,000 unit/mL oral suspension RxNorm: 323524 5 Milliliter(s) PO QID Swish et swallow 06/18/2017 06/27/2017 Inactive Cipro 500 mg tablet RxNorm: 174107 1 Tablet(s) PO BID 201606/18/2017 Inactive Cipro 500 mg tablet RxNorm: 415253 1 Tablet(s) PO BID 201606/11/2017 Inactive Toujeo SoloStar 300 unit/mL (1.5 mL) subcutaneous insulin pen RxNorm: 9253167 INJECT 10 UNITS UNDER THE SKIN DAILY 06/12/2017 08/15/2017 Inactive Keflex 500 mg capsule RxNorm: 275965 1 Capsule(s) PO TID 201606/13/2017 Inactive doxycycline hyclate 100 mg capsule RxNorm: 5422706 1 Capsule(s) PO BID 05/17/2017 05/21/2017 Inactive doxycycline hyclate 100 mg capsule RxNorm: 0707310 1 Capsule(s) PO BID 05/11/2017 05/16/2017 Inactive losartan 25 mg tablet RxNorm: 005702 1 Tablet(s) PO daily 201606/17/2017 Inactive atorvastatin 40 mg tablet RxNorm: 430506 1 Tablet(s) PO daily 03/01/2017 08/23/2017 Inactive clopidogrel 75 mg tablet RxNorm: 629476 1 Tablet(s) PO daily 08/23/2017 Inactive Flonase Allergy Relief 50 mcg/actuation nasal spray, suspension RxNorm: 3078637 2 [place] NASAL daily 02/16/20172016 Inactive Augmentin 875 mg-125 mg tablet RxNorm: 115815 1 Tablet(s) PO BID 02/16/2017 02/22/2017 Inactive GET PROBIOTIC TO TAKE WHILE ON ABX Tamiflu 75 mg capsule RxNorm: 008020 1 Capsule(s) PO BID 201602/20/2017 Inactive ceftriaxone 500 mg solution for injection RxNorm: 9231563 1 Milliliter(s) Inj 02/16/2017 02/16/2017 Inactive Kenalog 40 mg/mL suspension for injection RxNorm: 7854787 1 Milliliter(s) Inj 02/16/2017 02/16/2017 Inactive Toujeo SoloStar 300 unit/mL (1.5 mL) subcutaneous insulin pen RxNorm: 0831858 25 Unit(s) SQ QAM 02/12/2017 06/10/2017 Inactive Toujeo SoloStar 300 unit/mL (1.5 mL) subcutaneous insulin pen RxNorm: 5083238 10 Unit(s) SQ QAM 02/05/2017 02/11/2017 Inactive lisinopril 10 mg tablet RxNorm: 459849 1 Tablet(s) PO daily 02/28/2017 Inactive atorvastatin 40 mg tablet RxNorm: 119422 1 Tablet(s) PO daily 02/01/2017 02/28/2017 Inactive doxycycline hyclate 100 mg capsule RxNorm: 9295309 1 Capsule(s) PO BID 02/01/2017 02/10/2017 Inactive clonazepam 1 mg tablet RxNorm: 658485 1 Tablet(s) PO Q8 as needed 10/09/2016 01/05/2017 Inactive ceftriaxone 1 gram solution for injection RxNorm: 1537034 Inj 10/06/2016 10/06/2016 Inactive cyclobenzaprine 10 mg tablet RxNorm: 558626 1/2-1 Tablet(s) PO TID PRN 07/18/2016 01/28/2017 Inactive clonazepam 1 mg tablet RxNorm: 624197 1 Tablet(s) PO Q8 as needed 05/31/2016 05/29/2016 Inactive clonazepam 1 mg tablet RxNorm: 238438 1 Tablet(s) PO Q8 as needed 05/31/2016 08/28/2016 Inactive Toujeo SoloStar 300 unit/mL (1.5 mL) subcutaneous insulin pen RxNorm: 8131464 10 Unit(s) SQ daily 05/23/2016 01/28/2017 Inactive Crestor 10 mg tablet RxNorm: 016280 1 Tablet(s) PO QHS 201501/28/2017 Inactive Crestor 10 mg tablet RxNorm: 949477 1 Tablet(s) PO QHS 201505/18/2016 Inactive clonazepam 1 mg tablet RxNorm: 296965 1 Tablet(s) PO Q8 as needed 04/25/2016 05/30/2016 Inactive prednisone 20 mg tablet RxNorm: 134275 3 Tablet(s) PO daily 06/201602/10/2016 Inactive prednisone 20 mg tablet RxNorm: 191960 3 Tablet(s) PO daily 06/201605/14/2016 Inactive Kenalog 40 mg/mL suspension for injection RxNorm: 7022549 Milliliter(s) Inj 01/20/2016 01/20/2016 Inactive aspirin 81 mg tablet,delayed release RxNorm: 132205 1 Tablet(s) PO daily No Start Date Active Brilinta 90 mg tablet RxNorm: 2961853 1 Tablet(s) PO BID No Start Date Active Coreg 6.25 mg tablet RxNorm: 357255 1 Tablet(s) PO BID No Start Date Active acetaminophen 500 mg tablet RxNorm: 662038 1-2 Tablet(s) PO as needed No Start Date Active clopidogrel 75 mg tablet RxNorm: 619518 1 Tablet(s) PO daily No Start Date 02/28/2017 Inactive Novolog Flexpen U-100 Insulin aspart 100 unit/mL subcutaneous RxNorm: 1675855 5 units with breakfast lunch and 10 supper Unit(s) SQ No Start Date 06/17/2018 Inactive clonazepam 1 mg tablet RxNorm: 299200 1 Tablet(s) PO QHS No Start Date 04/24/2016 Inactive acyclovir 400 mg tablet RxNorm: 290855 2 Tablet(s) PO 5x daily No Start Date 02/28/2017 Inactive Lyrica 50 mg capsule RxNorm: 234742 Capsule(s) PO BID No Start Date 06/09/2018 Inactive Vraylar 3 mg capsule RxNorm: 7082576 1 Capsule(s) PO daily No Start Date 03/12/2018 Inactive Medication Administered Medication Codes Instructions Start Date Status ketorolac 30 mg/mL injection solution RxNorm: 948489 2Milliliter 05/02/2018 No longer Active ceftriaxone 500 mg solution for injection RxNorm: 8535272 1Milliliter 02/16/2017 No longer Active Kenalog 40 mg/mL suspension for injection RxNorm: 2981294 1Milliliter 02/16/2017 No longer Active ceftriaxone 1 gram solution for injection RxNorm: 1953968 10/06/2016 No longer Active Kenalog 40 mg/mL suspension for injection RxNorm: 4082105 Milliliter 01/20/2016 No longer Active Immunizations Vaccine [...] Item Code Result Date C Diff An [id number] GDH TNP:Lab Request 06/22/2018 C Diff An [id number] Toxin A/B TNP:Lab Request 06/22/2018 C Diff An [id number] C Diff Analyzer TNP:Lab Request 2017 C Diff An [id number] IC OK? TNP:Lab Request 06/22/2018 CBC 3081930 WBC 6.4 10e9/L 05/02/2018 CBC 3025492 RBC 5.60 10e12/L 05/02/2018 CBC 6187045 HEMOGLOBIN 17.0 g/dL 05/02/2018 CBC 9267460 HEMATOCRIT 48.0 % 05/02/2018 CBC 3881997 MCV 85.7 fL 05/02/2018 CBC 2527838 MCH 30.4 pg 05/02/2018 CBC 2842621 MCHC 35.4 g/dL 05/02/2018 CBC 5043013 PLATELET COUNT 166 10e9/L 05/02/2018 CBC 9851715 Mean Plt Volume 11.6 fL 05/02/2018 CBC 9051466 Neut Auto 48.6 % 05/02/2018 CBC 8057851 Lymph Auto 41.7 % 05/02/2018 CBC 2496816 [place] Auto 8.1 % 05/02/2018 CBC 0424798 RDW 13.1 % 05/02/2018 CBC 1731036 Eos Auto 1.1 % 05/02/2018 CBC 4052648 Baso Auto 0.5 % 05/02/2018 CBC 8159096 Neutrophil Abs 3.11 10e9/L 05/02/2018 CBC 2537497 Lymphocyte Abs 2.67 10e9/L 05/02/2018 CBC 9839273 Monocyte Abs 0.52 10e9/L 05/02/2018 CBC 3730433 Eosinophil Abs 0.07 10e9/L 05/02/2018 CBC 5442305 RDW-SD 40.0 fL 05/02/2018 CBC 0219400 Basophil Abs 0.03 10e9/L 05/02/2018 CHEM 14 0067655 AST 17 U/L 05/02/2018 CHEM 14 8613900 ALT 17 U/L 05/02/2018 CHEM 14 4953551 BUN 17 mg/dL 05/02/2018 CHEM 14 6586618 ALBUMIN 4.0 g/dL 05/02/2018 CHEM 14 2273184 CHLORIDE 97 mmol/L 05/02/2018 CHEM 14 9208401 Bili Total 0.9 mg/dL 05/02/2018 CHEM 14 7935483 ALK PHOS 67 U/L 05/02/2018 CHEM 14 8485553 SODIUM 135 mmol/L 05/02/2018 CHEM 14 2264255 CREATININE 1.18 mg/dL 05/02/2018 CHEM 14 0220226 CALCIUM 9.4 mg/dL 05/02/2018 CHEM 14 8851982 POTASSIUM 4.4 mmol/L 05/02/2018 CHEM 14 8870956 TOTAL PROTEIN 6.9 g/dL 05/02/2018 CHEM 14 5412108 GLUCOSE 316 mg/dL 05/02/2018 CHEM 14 8454074 Bicarbonate 29 mmol/L 05/02/2018 CHEM 14 7525375 AGAP 9 mmol/L 05/02/2018 MEAN GLUC 4084758 Calc Mean Gluc 283 mg/dL 05/02/2018 A1C HPLC 5923862 Hgb A1c 21819-7 11.5 % 05/02/2018 GFR CALC 8213881 GFR Non Afr Amr >60 mL/min 05/02/2018 GFR CALC 7018021 GFR Afr Amr >60 mL/min 05/02/2018 JI Gold 3120979 JIC Gold Complete 02/28/2018 GFR CALC 6628563 GFR Non Afr Amr >60 mL/min 02/28/2018 GFR CALC 9120078 GFR Afr Amr >60 mL/min 02/28/2018 UA W/CII 7774119 UA Urine Appear Normal 02/28/2018 UA W/CII 2463301 UA Protein 1+ 02/28/2018 UA W/CII 7591391 UA Hemoglobin Negative 02/28/2018 UA W/CII 6003877 UA Glucose 4+ 02/28/2018 UA W/CII 7982030 UA Ketones Trace 02/28/2018 UA W/CII 3302757 UA pH 5.5 02/28/2018 UA W/CII 2844232 U Spec [place] 1.015 02/28/2018 UA W/CII 4654203 UA Bilirubin Negative 02/28/2018 UA W/CII 2800702 UA Nitrite NEG 02/28/2018 UA W/CII 1582271 UA Leuk Esteras Negative 02/28/2018 MICR 6223779 UA WBC/hpf 1 02/28/2018 MICR 5224627 UA RBC hpf 2 02/28/2018 MICR 9178207 UA WBC auto 3.8 /uL 02/28/2018 MICR 8563878 UA RBC auto 12.2 /uL 02/28/2018 MICR 3846694 UA SQ EPI auto 2.3 /uL 02/28/2018 MICR 6272580 UA H Cast auto 0.10 /uL 02/28/2018 CBC 9827666 WBC 6.4 10e9/L 02/28/2018 CBC 0668113 RBC 5.51 10e12/L 02/28/2018 CBC 4565447 HEMOGLOBIN 16.7 g/dL 02/28/2018 CBC 0306207 HEMATOCRIT 46.9 % 02/28/2018 CBC 0108087 MCV 85.1 fL 02/28/2018 CBC 3373009 MCH 30.3 pg 02/28/2018 CBC 0892867 MCHC 35.6 g/dL 02/28/2018 CBC 8961068 PLATELET COUNT 173 10e9/L 02/28/2018 CBC 1202527 Mean Plt Volume 11.6 fL 02/28/2018 CBC 4354350 Neut Auto 51.8 % 02/28/2018 CBC 1708672 Lymph Auto 39.9 % 02/28/2018 CBC 6824200 [place] Auto 7.3 % 02/28/2018 CBC 9074152 Eos Auto 0.8 % 02/28/2018 CBC 4453843 RDW 13.3 % 02/28/2018 CBC 8254956 Baso Auto 0.2 % 02/28/2018 CBC 3967137 Neutrophil Abs 3.32 10e9/L 02/28/2018 CBC 8663604 Lymphocyte Abs 2.55 10e9/L 02/28/2018 CBC 4605420 Monocyte Abs 0.47 10e9/L 02/28/2018 CBC 6372701 Eosinophil Abs 0.05 10e9/L 02/28/2018 CBC 9304473 Basophil Abs 0.01 10e9/L 02/28/2018 CBC 9618179 RDW-SD 40.8 fL 02/28/2018 CHEM 14 3847500 AST 17 U/L 02/28/2018 CHEM 14 7352126 ALT 17 U/L 02/28/2018 CHEM 14 3093303 BUN 20 mg/dL 02/28/2018 CHEM 14 6909201 ALBUMIN 4.1 g/dL 02/28/2018 CHEM 14 7231496 CHLORIDE 97 mmol/L 02/28/2018 CHEM 14 3934119 Bili Total 1.3 mg/dL 02/28/2018 CHEM 14 8071324 ALK PHOS 78 U/L 02/28/2018 CHEM 14 9935919 SODIUM 135 mmol/L 02/28/2018 CHEM 14 0276781 CREATININE 1.09 mg/dL 02/28/2018 CHEM 14 0319125 CALCIUM 9.6 mg/dL 02/28/2018 CHEM 14 8207847 POTASSIUM 3.8 mmol/L 02/28/2018 CHEM 14 5851398 TOTAL PROTEIN 7.3 g/dL 02/28/2018 CHEM 14 8339310 GLUCOSE 349 mg/dL 02/28/2018 CHEM 14 5260674 Bicarbonate 29 mmol/L 02/28/2018 CHEM 14 8005118 AGAP 9 mmol/L 02/28/2018 Fei Mtn Spot'D Fev Igg 433208 RMSF, IGG -TITER IFA <1:64 11/2016 [place] Spotted Fever Igg/Igm 641685 FEI MT SPOTTED FEVER IGM EIA . 09/05/2017 [place] Spotted Fever Igg/Igm 438202 RMSF, IGM 0.17 index 09/05/2017 [place] Spotted Fever Igg/Igm 635804 FEI MT SPOTTED FEVER IGG EIA FLEX . 09/05/2017 [place] Spotted Fever Igg/Igm 346765 RMSF, IGG SCREEN-FLEX Positive 09/05/2017 Ehrlichia Chaffeensis Antibody Igm 611147 EHRLICHIA CHAFFEENSIS IGM < 1:16 09/03/2017 Ehrlichia Chaffeensis Antibody Igg 230939 EHRLICHIA CHAFFEENSIS IGG <1:64 09/03/2017 Lymes Disease Total Antibodies With Western Blot Reflex B. BURGDORFERI, IGG/IGM 0.223 08/30/2017 Lymes Disease Total Antibodies With Western Blot Reflex C-Reactive Protein Qnt Crqnt CRP 0.00 mg/dl 08/27/2017 Sed Rate Ord21 ESR 8 mm/hr 08/27/2017 Comp Metabolic Tkt240 NA 135 mEq/L 08/16/2017 Comp Metabolic Mwq760 K 4.1 mEq/L 08/16/2017 Comp Metabolic Ljw907 CL 98 mEq/L 08/16/2017 Comp Metabolic Ezx620 CO2 28.0 mEq/L 08/16/2017 Comp Metabolic Pjl386 ANION GAP 13 08/16/2017 Comp Metabolic Jpr181 GLUCOSE 299 mg/dL 08/16/2017 Comp Metabolic Lut374 Creat 0.9 mg/dL 08/16/2017 Comp Metabolic Vzg029 eGFR 90 ml/min/1.73m2 08/16/2017 Comp Metabolic Dpj255 BUN 20 mg/dL 08/16/2017 Comp Metabolic Fuq551 B/C Ratio 21.5 Ratio 08/16/2017 Comp Metabolic Kwo118 CALCIUM 9.2 mg/dL 08/16/2017 Comp Metabolic Jyp566 ALK PHOS 84 U/L 08/16/2017 Comp Metabolic Kly655 AST(SGOT) 19 U/L 08/16/2017 Comp Metabolic Iey092 ALT(SGPT) 24 U/L 08/16/2017 Comp Metabolic Agv007 BILI T 1.1 mg/dL 08/16/2017 Comp Metabolic Jsk576 ALBUMIN 4.2 g/dL 08/16/2017 Comp Metabolic Nin226 TPRO 7.2 g/dL 08/16/2017 Comp Metabolic Yjy212 GLOB 3.0 g/dL 08/16/2017 Comp Metabolic Qbt058 A/G Ratio 1.4 Ratio 08/16/2017 Comp Metabolic Okh448 Osmo 284 mOsmo 08/16/2017 %Hba1C Lgd312 % HbA1c 40571-1 12.5 % 08/16/2017 %Hba1C Bcp871 Gluc Ave 312 mg/dL 08/16/2017 Urine Culture Ucult Complete NO Growth Day 2 06/23/2017 Urine Culture Ucult Preliminary NO Growth Day 1 06/23/2017 C RAP A SC [id number] Strep A Negative 06/08/2017 %Hba1C Neu347 % HbA1c 91323-0 9.5 % 05/04/2017 %Hba1C Jje568 Gluc Ave 226 mg/dL 05/04/2017 Tsh Ord6 [...] 89.9 fl 05/04/2017 Cbc With Differential Ord2 [place]% 8.5 % 05/04/2017 Cbc With Differential Ord2 [...] 2.48 K/ul 05/04/2017 Cbc With Differential Ord2 [place] ABS# 0.5 K/ul 05/04/2017 Cbc With Differential Ord2 Eos ABS# 0.1 K/ul 05/04/2017 Cbc With Differential Ord2 Baso ABS# 0.0 K/ul 05/04/2017 Comp Metabolic Gvv888 NA 135 mEq/L 05/04/2017 Comp Metabolic Wir291 K 4.2 mEq/L 05/04/2017 Comp Metabolic Ftr684 CL 99 mEq/L 05/04/2017 Comp Metabolic Lrh998 CO2 26.0 mEq/L 05/04/2017 Comp Metabolic Ygr741 ANION GAP 14 05/04/2017 Comp Metabolic Tcu144 GLUCOSE 277 mg/dL 05/04/2017 Comp Metabolic Kpn809 Creat 0.9 mg/dL 05/04/2017 Comp Metabolic Pcu531 eGFR 96 ml/min/1.73m2 05/04/2017 Comp Metabolic Uiv683 BUN 23 mg/dL 05/04/2017 Comp Metabolic Qng839 B/C Ratio 26.1 Ratio 05/04/2017 Comp Metabolic Sfr832 CALCIUM 8.9 mg/dL 05/04/2017 Comp Metabolic Dgl533 ALK PHOS 81 U/L 05/04/2017 Comp Metabolic Mjp922 AST(SGOT) 21 U/L 05/04/2017 Comp Metabolic Zme087 ALT(SGPT) 27 U/L 05/04/2017 Comp Metabolic Ewk494 BILI T 1.2 mg/dL 05/04/2017 Comp Metabolic Yvw435 ALBUMIN 4.0 g/dL 05/04/2017 Comp Metabolic Mwq348 TPRO 6.7 g/dL 05/04/2017 Comp Metabolic Eln178 GLOB 2.7 g/dL 05/04/2017 Comp Metabolic Gjn216 A/G Ratio 1.5 Ratio 05/04/2017 Comp Metabolic Gpc925 Osmo 284 mOsmo 05/04/2017 C A/B FLU 8880572 Influenza A Scr Negative 02/16/2017 C A/B FLU 6768693 Influenza B Scr Positive 02/16/2017 Cbc With [...] 39.7 % 05/23/2016 Cbc With Differential Ord2 [place]% 8.8 % 05/23/2016 Cbc With Differential Ord2 [...] 2.07 K/ul 05/23/2016 Cbc With Differential Ord2 [place] ABS# 0.5 K/ul 05/23/2016 Cbc With Differential Ord2 Eos ABS# 0.1 K/ul 05/23/2016 Cbc With Differential Ord2 Baso ABS# 0.0 K/ul 05/23/2016 Lipid Ord30 CHOL 397 mg/dL 05/17/2016 Lipid Ord30 HDL 48.0 mg/dl 05/17/2016 Lipid Ord30 TRIG 578 mg/dL 05/17/2016 Lipid Ord30 LDL Unable to calculate Due to elevated triglycerides mg/dL 05/17/2016 Lipid Ord30 C/HDL 8.3 Ratio 05/17/2016 %Hba1C Uxe384 % HbA1c 09251-3 12.4 % 05/16/2016 %Hba1C Hcv289 Gluc Ave 309 mg/dL 05/16/2016 Cbc With [...] 87.4 fl 05/15/2016 Cbc With Differential Ord2 [place]% 7.8 % 05/15/2016 Cbc With Differential Ord2 [...] 2.04 K/ul 05/15/2016 Cbc With Differential Ord2 [place] ABS# 0.5 K/ul 05/15/2016 Cbc With Differential Ord2 Eos ABS# 0.1 K/ul 05/15/2016 Cbc With Differential Ord2 Baso ABS# 0.0 K/ul 05/15/2016 Tsh Ord6 hTSH II 1.70 uIU/mL 05/15/2016 Comp Metabolic Jgh277 NA 135 mEq/L 05/15/2016 Comp Metabolic Jmf181 K 3.9 mEq/L 05/15/2016 Comp Metabolic Arp300 CL 96 mEq/L 05/15/2016 Comp Metabolic Eer788 CO2 27.0 mEq/L 05/15/2016 Comp Metabolic Mht941 ANION GAP 16 05/15/2016 Comp Metabolic Atj453 GLUCOSE 183 mg/dL 05/15/2016 Comp Metabolic Luj437 Creat 1.1 mg/dL 05/15/2016 Comp Metabolic Wms293 eGFR 71 ml/min/1.73m2 05/15/2016 Comp Metabolic Gqh893 BUN 17 mg/dL 05/15/2016 Comp Metabolic Vrs107 B/C Ratio 14.9 Ratio 05/15/2016 Comp Metabolic Cnp927 CALCIUM 9.6 mg/dL 05/15/2016 Comp Metabolic Gce616 ALK PHOS 100 U/L 05/15/2016 Comp Metabolic Lgc871 AST(SGOT) 20 U/L 05/15/2016 Comp Metabolic Lhu814 ALT(SGPT) 20 U/L 05/15/2016 Comp Metabolic Gbk844 BILI T 1.3 mg/dL 05/15/2016 Comp Metabolic Swz414 ALBUMIN 4.6 g/dL 05/15/2016 Comp Metabolic Nir045 TPRO 8.1 g/dL 05/15/2016 Comp Metabolic Zpu682 GLOB 3.5 g/dL 05/15/2016 Comp Metabolic Jpp402 A/G Ratio 1.3 Ratio 05/15/2016 Comp Metabolic Qws570 Osmo 276 mOsmo 05/15/2016 Review of Systems [...] of skin Location: face 05/04/2017 patch left amish Full Exam - General 1994 Constitutional general [...] NO PRSV 4 MENA 3 YRS+ CPT-4: 38568 08/16/2017 IMMUNIZATION ADMIN CPT -4: 95460 08/16/2017 URINALYSIS NONAUTO W/O SCOPE CPT-4: 95731 06/21/2017 TRIAMCINOLONE ACET INJ NOS CPT-4: J3301 05/04/2017 THER/PROPH/DIAG INJ SC/IM CPT-4: 82585 05/04/2017 TRIAMCINOLONE ACET INJ NOS CPT-4: J3301 02/16/2017 ROCEPHIN, PER 250 MG CPT-4: J0696 02/16/2017 ROCEPHIN, PER 250 MG CPT-4: J0696 10/06/2016 URINALYSIS NONAUTO W/O SCOPE CPT-4: 83453 07/18/2016 TRIAMCINOLONE ACET INJ NOS CPT-4: J3301 01/20/2016 Vital Signs Date Vital 06/18/2018 Blood Pressure 1: 138/82 Code : 8480-6 BMI: 31.8 Code : 71867-3 Heart Rate 1 : 82 bpm Height: 6'2" SpO2: 97% Weight: 248 lbs 06/04/2018 Blood Pressure 1: 128/84 Code : 8480-6 BMI: 33.9 Code : 85126-4 Heart Rate 1 : 86 bpm Height: 6'2" SpO2: 95% Weight: 264 lbs 05/13/2018 Blood Pressure 1: 130/80 Code : 8480-6 BMI: 31.1 Code : 05570-5 Heart Rate 1 : 100 bpm Height: 6'2" SpO2: 94% Weight: 242 lbs 05/02/2018 Blood Pressure 1: 134/84 Code : 8480-6 BMI: 31.2 Code : 24565-4 Heart Rate 1 : 93 bpm Height: 6'2" SpO2: 98% Weight: 243 lbs 04/29/2018 Blood Pressure 1: 142/88 Code : 8480-6 BMI: 31.6 Code : 23253-5 Heart Rate 1 : 96 bpm Height: 6'2" SpO2: 96% Temperature: 36.7 (C) / 98.1 (F) Weight: 246 lbs 03/13/2018 Blood Pressure 1: 120/76 Code : 8480-6 BMI: 30.9 Code : 73223-7 Heart Rate 1 : 112 bpm Height: 6'2" SpO2: 97% Weight: 241 lbs 03/07/2018 Blood Pressure 1: 108/78 Code : 8480-6 BMI: 30.0 Code : 86788-1 Heart Rate 1 : 87 bpm Height: 6'2" SpO2: 98% Weight: 234 lbs 02/28/2018 Blood Pressure 1: 106/74 Code : 8480-6 BMI: 30.0 Code : 51867-0 Heart Rate 1 : 101 bpm Height: 6'2" SpO2: 98% Temperature: 36.4 (C) / 97.5 (F) Weight: 234 lbs 02/13/2018 Blood Pressure 1: 110/78 Code : 8480-6 BMI: 30.0 Code : 64865-1 Heart Rate 1 : 106 bpm Height: 6'2" SpO2: 98% Weight: 234 lbs 01/29/2018 Blood Pressure 1: 106/68 Code : 8480-6 BMI: 30.0 Code : 47179-8 Heart Rate 1 : 108 bpm Height: 6'2" SpO2: 98% Weight: 234 lbs 08/27/2017 Blood Pressure 1: 134/76 Code : 8480-6 Heart Rate 1: 98 bpm Height: SpO2: 97% Weight: 08/16/2017 Blood Pressure 1: 128/80 Code : 8480-6 BMI: 32.0 Code : 75605-9 Heart Rate 1 : 94 bpm Height: [...] Code : 8480-6 BMI: 31.8 Code : 81309-0 Heart Rate 1 : 102 bpm Height: [...] Code : 8480-6 BMI: 31.8 Code : 74605-5 Heart Rate 1 : 85 bpm Height: 6'2" SpO2: 96% Temperature: 36.6 (C) / 97.9 (F) Weight: 248 lbs 02/12/2017 Blood Pressure 1: 126/76 Code : 8480-6 BMI: 31.8 Code : 63200-3 Heart Rate 1 : 106 bpm Height: 6'2" SpO2: 91% Weight: 248 lbs 02/05/2017 Blood Pressure 1: 146/86 Code : 8480-6 BMI: 31.9 Code : 92178-7 Heart Rate 1 : 98 bpm Height: 6'2" SpO2: 87% Temperature: 36.7 (C) / 98.0 (F) Weight: 248 lbs 8 oz 01/29/2017 Blood Pressure 1: 132/84 Code : 8480-6 BMI: 31.8 Code : 47881-5 Heart Rate 1 : 83 bpm Height: 6'2" SpO2: 97% Weight: 248 lbs 10/13/2016 Blood Pressure 1: 128/72 Code : 8480-6 Heart Rate 1: 86 bpm SpO2: 94% 10/09/2016 Blood Pressure 1: 128/68 Code : 8480-6 Heart Rate 1: 136 bpm SpO2: 94% Temperature: 36.8 (C) / 98.2 (F) 10/06/2016 Blood Pressure 1: 140/80 Code : 8480-6 BMI: 32.1 Code : 24810-2 Heart Rate 1 : 94 bpm Height: 6'2" SpO2: 95% Weight: 250 lbs 07/18/2016 Blood Pressure 1: 128/86 Code : 8480-6 BMI: 32.1 Code : 59779-1 Heart Rate 1 : 89 bpm Height: 6'2" SpO2: 96% Weight: 250 lbs 06/22/2016 Blood Pressure 1: 118/70 Code : 8480-6 BMI: 32.1 Code : 61722-0 Heart Rate 1 : 70 bpm Height: 6'2" SpO2: 97% Weight: 250 lbs 05/23/2016 Blood Pressure 1: 128/80 Code : 8480-6 BMI: 32.1 Code : 65385-9 Heart Rate 1 : 76 bpm Height: 6'2" SpO2: 98% Weight: 250 lbs 05/15/2016 Blood Pressure 1: 110/90 Code : 8480-6 BMI: 31.3 Code : 96466-0 Heart Rate 1 : 111 bpm Height: 6'2" SpO2: 97% Temperature: 36.6 (C) / 97.8 (F) Weight: 244 lbs 01/20/2016 Blood Pressure 1: 128/76 Code : 8480-6 BMI: 33.0 Code : 59818-3 Heart Rate 1 : 103 bpm Height: [...] data Encounters Encounter Performer Location Codes Date ([id number]) [id number] EST. PATIENT, LEVEL IV Diagnosis: Type 2 diabetes mellitus with hyperglycemia[ICD10: E11.65] Diagnosis: Essential (primary) hypertension[ICD10: I10] Melida Ha MD, [facility] CPT-4: 54606 06/18/2018 ([id number]) [id number] EST. PATIENT, LEVEL IV Diagnosis: Type 2 diabetes mellitus with hyperglycemia[ICD10: E11.65] Diagnosis: Essential (primary) hypertension[ICD10: I10] Diagnosis: Localized edema[ICD10: R60.0] Melida Ha MD, [facility] CPT- 4: 78388 06/04/2018 ([id number]) [id number] EST. PATIENT, LEVEL III Diagnosis: Type 2 diabetes mellitus with hyperglycemia[ICD10: E11.65] Diagnosis: Myalgia[ICD10: M79.1] Diagnosis: Pain in right hip[ICD10: M25.551] Diagnosis: Pain in left hip[ICD10: M25.552] Marcela Ha MD, [facility] CPT-4: 54047 05/13/2018 ([id number]) [id number] EST. PATIENT, LEVEL III Diagnosis: Myalgia[ICD10: M79.1] Diagnosis: Pain in right hip[ICD10: M25.551] Diagnosis: Pain in left hip[ICD10: M25.552] Marcela Ha MD, [facility] CPT-4: 38598 05/02/2018 ([id number]) 74171 EST. PATIENT, LEVEL IV Diagnosis: Essential (primary) hypertension[ICD10: I10] Diagnosis: Type 2 diabetes mellitus with hyperglycemia[ICD10: E11.65] Diagnosis: Major depressive disorder, single episode, moderate[ICD10: F32.1] Diagnosis: Myalgia[ICD10: M79.1] Marcela Ha MD, [facility] CPT-4: 54635 04/29/2018 ([id number]) 81393 EST. PATIENT, LEVEL IV Diagnosis: Type 2 diabetes mellitus with hyperglycemia[ICD10: E11.65] Diagnosis: Essential (primary) hypertension[ICD10: I10] Diagnosis: Major depressive disorder, single episode, moderate[ICD10: F32.1] Melida Ha MD, [facility] CPT-4: 30033 03/13/2018 ([id number]) 97100 EST. PATIENT, LEVEL III Diagnosis: Type 2 diabetes mellitus with hyperglycemia[ICD10: E11.65] Diagnosis: Bipolar disorder, current episode depressed, moderate[ICD10: F31.32] Diagnosis: Orthostatic hypotension[ICD10: I95.1] Marcela Ha MD, [facility] CPT-4: 26599 03/07/2018 ([id number]) 69619 EST. PATIENT, LEVEL IV Diagnosis: Type 2 diabetes mellitus with hyperglycemia[ICD10: E11.65] Diagnosis: Major depressive disorder, single episode, moderate[ICD10: F32.1] Diagnosis: Orthostatic hypotension[ICD10: I95.1] Diagnosis: Other fatigue[ICD10: R53.83] Marcela Ha MD, [facility] CPT-4: 71659 02/28/2018 76955 EST. PATIENT, LEVEL IV Diagnosis: Other fatigue[ICD10: R53.83] Diagnosis: Other malaise[ICD10: R53.81] Diagnosis: Gastro-esophageal reflux disease without esophagitis[ICD10: K21.9] Madeline Ha MD, [facility] CPT-4: 31791 02/13/2018 ([id number]) 41667 EST. PATIENT, LEVEL IV Diagnosis: Type 2 diabetes mellitus with foot ulcer[ICD10: E11.621] Diagnosis: Essential (primary) hypertension[ICD10: I10] Diagnosis: Gastro-esophageal reflux disease without esophagitis[ICD10: K21.9] Marcela Ha MD, [facility] CPT-4: 15437 01/29/2018 39063 EST. PATIENT, LEVEL III Diagnosis: Other malaise[ICD10: R53.81] Diagnosis: Other fatigue[ICD10: R53.83] Diagnosis: Pain in right shoulder[ICD10: M25.511] Diagnosis: Pain in left shoulder[ICD10: M25.512] Madeline Ha MD, [facility] CPT-4: 52325 08/27/2017 ([id number]) 43985 EST. PATIENT, LEVEL IV Diagnosis: Essential (primary) hypertension[ICD10: I10] Diagnosis: Type 2 diabetes mellitus with hyperglycemia[ICD10: E11.65] Diagnosis: VACCIN FOR INFLUENZA[ICD10: Z23] Melida Ha MD, [facility] CPT-4: 69344 08/16/2017 09131 EST. PATIENT, LEVEL III Diagnosis: Zoster without complications[ICD10: B02.9] Madeline Ha MD, [facility] CPT-4: 42498 07/26/2017 ([id number]) 91072 EST. PATIENT, LEVEL III Diagnosis: Cellulitis of right lower limb[ICD10: L03.115] Marcela Ha MD [facility] CPT-4: 02772 07/03/2017 87822 EST. PATIENT, LEVEL II Diagnosis: Laceration without foreign body of left forearm, initial encounter[ ICD10: S51.812A] Marcela Ha MD [facility] CPT-4: 26506 06/29/2017 ([id number]) 95642 EST. PATIENT, LEVEL III Diagnosis: Cellulitis of right lower limb[ICD10: L03.115] Diagnosis: Type 2 diabetes mellitus with foot ulcer[ICD10: E11.621] Marcela Ha MD [facility] CPT-4: 10290 06/18/2017 ([id number]) 12764 EST. PATIENT, LEVEL IV Diagnosis: Cellulitis of right lower limb[ICD10: L03.115] Diagnosis: Acute laryngopharyngitis[ICD10: J06.0] Diagnosis: Gastro-esophageal reflux disease without esophagitis[ICD10: K21.9] Marcela Ha MD [facility] CPT-4: 82832 06/07/2017 ([id number]) 65113 EST. PATIENT, LEVEL III Diagnosis: Type 2 diabetes mellitus with hyperglycemia[ICD10: E11.65] Diagnosis: Insect bite (nonvenomous) of abdominal wall, initial encounter[ICD10 : S30.861A] Marcela Ha MD [facility] CPT-4: 38758 05/17/2017 ([id number]) 29926 EST. PATIENT, LEVEL III Diagnosis: Allergic contact dermatitis due to plants, except food[ICD10: L23.7] Melida Ha MD [facility] CPT-4: 20140 05/04/2017 ([id number]) 66132 EST. PATIENT, LEVEL III Diagnosis: Essential (primary) hypertension[ICD10: I10] Marcela Ha MD [facility] CPT-4: 14950 03/15/2017 ([id number]) 66729 EST. PATIENT, LEVEL III Diagnosis: Cough[ICD10: R05] Diagnosis: Essential (primary) hypertension[ICD10: I10] Marcela Ha MD [facility] CPT-4: 67565 03/01/2017 ([id number]) 21439 EST. PATIENT, LEVEL III Diagnosis: Cough[ICD10: R05] Diagnosis: Nasal congestion[ICD10: R09.81] Diagnosis: Acute recurrent maxillary sinusitis[ICD10: J01.01] Marcela Ha MD [facility] CPT-4: 89582 02/16/2017 ([id number]) 53754 EST. PATIENT, LEVEL III Diagnosis: Type 2 diabetes mellitus with hyperglycemia[ICD10: E11.65] Marcela Ha MD [facility] CPT-4: 37524 02/12/2017 ([id number]) 00420 EST. PATIENT, LEVEL IV Diagnosis: Type 2 diabetes mellitus with hyperglycemia[ICD10: E11.65] Diagnosis: Muscle weakness (generalized)[ICD10: M62.81] Diagnosis: Disorientation, unspecified[ICD10: R41.0] Marcela Ha MD [facility] CPT-4: 60262 02/05/2017 ([id number]) Patient admitted to the hospital from clinic (NO CHARGE) Diagnosis: Type 2 diabetes mellitus with hyperglycemia[ICD10: E11.65] Diagnosis: Disorientation, unspecified[ICD10: R41.0] Diagnosis: Muscle weakness (generalized)[ICD10: M62.81] Marcela Ha MD [facility] CPT-4: 12725Q 01/29/2017 ([id number]) Miscellaneous no charge Diagnosis: Cellulitis of right lower limb[ICD10: L03.115] Marcela Ha MD, [facility] CPT-4: 04971 10/13/2016 ([id number]) Miscellaneous no charge Diagnosis: Type 2 diabetes mellitus with foot ulcer[ICD10: E11.621] Diagnosis: Pain in right foot[ICD10: M79.671] Marcela Ha MD [facility] CPT-4: 89278 10/09/2016 58012 EST. PATIENT, LEVEL II Diagnosis: Cellulitis of right lower limb[ICD10: L03.115] Marcela Ha MD [facility] CPT-4: 86578 10/06/2016 ([id number]) 78330 EST. PATIENT, LEVEL IV Diagnosis: Low back pain[ICD10: M54.5] Diagnosis: Other deformities of toe(s) (acquired), left foot[ICD10: M20.5X2] Diagnosis: Type 2 diabetes mellitus with foot ulcer[ICD10: E11.621] Marcela Ha MD , [facility] CPT-4: 49651 07/18/2016 ([id number]) 04305 EST. PATIENT, LEVEL III Diagnosis: Type 2 diabetes mellitus with hyperglycemia[ICD10: E11.65] Marcela Ha MD, [facility] CPT-4: 26411 06/22/2016 ([id number]) 93948 EST. PATIENT, LEVEL IV Diagnosis: Type 2 diabetes mellitus with hyperglycemia[ICD10: E11.65] Diagnosis: Mixed hyperlipidemia[ICD10: E78.2] Diagnosis: Other hemoglobinopathies[ICD10: D58.2] Marcela Ha MD, [facility] CPT-4: 33463 05/23/2016 ([id number]) 01889 EST. PATIENT, LEVEL IV Diagnosis: Type 2 diabetes mellitus with other specified complication[ICD10: E11.69] Diagnosis: Dehydration[ICD10: E86.0] Marcela Ha MD, [facility] CPT-4: 73282 05/15/2016 ([id number]) OFFICE VISIT, NEW - LEVEL 3 Diagnosis: Allergic contact dermatitis due to plants, except food[ICD10: L23.7] Madeline Ha MD, [facility] CPT-4: 49053 01/20/2016 Plan of Care Planned Activity Notes Codes Status Date Patient Education: Patient Medication Summary Completed 06/21/2018 Care Plan: C CDIFF [place] Pending 06/21/2018 Visit Plan: Diabetes Mellitus - [...] home. 06/18/2018 Appointment: Melida Ha WPtel: [phone] [facility] [place] (15 min) Moderate 06/18/2018 Patient Education: [...] improves. 06/04/2018 App[facility]ment: [phone] [place] (15 min) Moderate 06/04/2018 Patient Education: [...] allow for greater blood glucose control. Joint nodp-gdrbmqci-auwgagk- symptoms have improved -stop meloxicam due to upset stomach-call if symptoms return 05/13/2018 Appointment: Marcela Oshea WPtel: [phone] [phone] [place] (30 min) Complex 05/13/2018 Patient Education: Patient Medication Summary Completed 05/13/2018 Visit Plan: Bilateral hip padf-ogwjioal-behpzuw IM injection administered today for c/o continued myalgia/arthralgia. Patient to start taking Meloxicam 15mg PO daily. Advised to return to clinic if symptoms do not improve. 05/02/2018 Appointment: Marcela Oshea WPtel: [phone] [place] (30 min) Complex 05/02/2018 Patient [...] readings at home. Diabetes Mellitus -check labs Zleixgjq-kfqpkfj-xupr bite-rx for doxycycline-follow up in 2 weeks 04/29/2018 Appointment: Marcela Oshea WPtel: [phone] [place] (15 min) Moderate 04/29/2018 Patient Education: Patient Medication Summary Completed 04/29/2018 Appointment: Melida Ha WPtel: [facility]5 [facility] [place] (15 min) Moderate 04/15/2018 Appointment: Marcela Oshea WPtel: [address] [place], [place] [phone] [place] (30 min) Complex 03/21/2018 Visit Plan: [...] cymbalta 03/13/2018 Appointment: Mel[facility] Ha [facility]el[phone] [place] (30 min) Complex 03/13/2018 Patient Education: Patient Medication Summary Completed 03/13/2018 Visit Plan: DM-continue same medications-monitor blood sugars routinely as directed -rx for new glucometer and test strips provided Bipolar-currently depressed-patient start on vraylar-follow up in 2 weeks, sooner if needed. Patient and verbalied understanding of plan. Hypotension- stay off losartan 03/07/2018 Appointment: [facility]Ptel[facility] [phone] [phone] [place] (30 min) Complex 03/07/2018 Patient Education: Patient Medication Summary Completed 03/07/2018 Appointment: Mel[facility]Ptel[phone] [facility] [place] (15 min) Moderate 03/04/2018 Visit Plan: Hypotension-continue [...] this patient. 02/28/2018 Appointment: Marcela Oshea WPtel: [facility]5 [phone] (30 min) Complex 02/28/2018 Patient Education: [...] improving. 02/13/2018 Appointment: Madeline Kennedy [facility]Ptel[facility] [phone] [facility] (15 min) Moderate 02/13/2018 Patient Education: Patient Medication Summary Completed 02/13/2018 Referral: Sun Glynn Patient informed. Referral info faxed. Completed Visit Plan: DM-weight loss-not checking blood sugars- patient sent for labs today HTN-low bsolo-flmbtwy-yxvho labs Callus of foot and fissue of [...] improving. 01/29/2018 Appointment: [facility]Ptel[facility] [phone] [phone] (30 min) Complex 01/29/2018 Patient Education: Patient Medication Summary Completed 01/29/2018 Care Plan: Comp Metabolic Cancelled 01/29/2018 Care Plan: Cbc With Differential Cancelled 01/29/2018 Care Plan: %Hba1C LOINC : 86905-8 Cancelled 01/29/2018 Care Plan: Referral Order SNOMED-CT : [id number] Cancelled 01/29/2018 Visit Plan: Fatigue, malaise, joint [...] concerns. 08/27/2017 Appointment: Madeline Kennedy WPtel: [phone] [facility] (15 min) Moderate 08/27/2017 Patient Education: Patient [...] today - 08/16/2017 Appointment: Melida Ha WPtel: [facility]5 [facility] (30 min) Complex 08/16/2017 Patient Education: Patient Medication Summary Completed 08/16/2017 Patient Education: Obesity Completed 08/16/2017 Appointment: Madeline Kennedy WPtel: [facility]5 [facility] (30 min) Complex 08/07/2017 Visit Plan: [...] considered contagious. 07/26/2017 Appointment: Madeline Kennedy WPtel: [facility] (15 min) Moderate 07/26/2017 Patient Education: Patient Medication Summary Completed 07/26/2017 Visit Plan: Cellulitis right foot-cultured today in the office-home health to reapply wound vac--appt with wound care on to evaluate for debridement- 07/03/2017 Appointment: Marcela Oshea WPtel: [address] [place], [place] [phone] (30 min) Complex 07/03/2017 Patient Education: Patient Medication Summary Completed 07/03/2017 Visit Plan: Abrasion left arm - Pt was instructed to keep the wound clean, wash with antibacterial soap, use triple antibiotic ointment, call if redness, pustular drainage, or any other acute concerns. 06/29/2017 Appointment: Marcela Oshea WPtel: [phone] (15 min) Moderate 06/29/2017 Patient Education: [...] of plan. 06/18/2017 Appointment: Marcela Oshea WPtel: [facility]8 [phone] (15 min) Moderate 06/18/2017 Patient Education: [...] diet-start prilosec 06/07/2017 Appointment: Marcela Oshea WPtel: [phone] [phone] (10 min) Simple 06/07/2017 Patient Education: [...] doxycycline 05/17/2017 Appointment: Marcela Oshea WPtel: [phone] [phone] (30 min) Complex 05/17/2017 Patient Education: [...] you want anai edge called into [facility]. 05/04/2017 Appointment: Marcela Oshea WPtel: [phone] [phone] (30 min) Complex 05/04/2017 Patient Education: [...] home. Cough-resolved 03/15/2017 Appointment: Marcela Oshea WPtel: [facility] (15 min) Moderate 03/15/2017 Patient Education: Patient Medication Summary Completed 03/15/2017 Appointment: Marcela Oshea WPtel: [address] [place] [address] (30 min) Complex 03/12/2017 Visit Plan: Feng [...] as discussed 02/16/2017 Appointment: Marcela Oshea WPtel: [address] [place] [address] (15 min) Moderate 02/16/2017 Patient Education: Patient [...] less controlled. 02/12/2017 Appointment: Marcela Oshea WPtel: [facility] [address] (30 min) Complex 02/12/2017 Patient Education: Patient Medication Summary Completed 02/12/2017 Appointment: Marcela Oshea WPtel: [phone] [phone] (30 min) Complex 02/06/2017 Visit Plan: [...] will consider 02/05/2017 Appointment: Marcela Oshea WPtel: [phone] (30 min) Complex 02/05/2017 Patient Education: Patient Medication Summary Completed 02/05/2017 Appointment: Marcela Oshea WPtel: [facility]4 [phone] (30 min) Complex 01/30/2017 Visit Plan: Acute confusion-uncontrolled diabetes- chronically noncompliant with treatment and stopped his insulin several months ago-r/o stroke vs DKA-Dr Ha in to evaluate patient-plan to admit for further work up and treatment-patient's called and she transported him to the hospital 01/29/2017 Appointment: Marcela Oshea WPtel: [facility]4 [phone] (30 min) Complex 01/29/2017 Patient Education: Patient Medication Summary Completed 01/29/2017 Patient Education: Obesity Completed 01/29/2017 Visit Plan: Right foot pain-MRI shows foreign body-appt with Dr Grewal for evaluation on Sunday. 10/13/2016 Appointment: Marcela Oshea WPtel: [phone] (15 min) Moderate 10/13/2016 Patient Education: Patient Medication Summary Completed 10/13/2016 Appointment: Marcela Oshea WPtel: [address] [place], [place] [phone] (30 min) Complex 10/12/2016 Visit Plan: Right foot zbio-gbwfufow-wqtik washer dropped on foot-xray negative but pain continues to increase-recommend MRI of foot for further evaluation-refer to wound care for lesions on right foot, patient has diabetes and history of osteomyelitis-culture obtained today-continue oral abx- follow up in the office on , sooner if needed 10/09/2016 Visit Plan: Right foot lfhd-qhlvpdyl-oqtis washer dropped on foot-xray negative but pain continues to increase-recommend MRI of foot for further evaluation-refer to wound care for lesions on right foot, patient has diabetes and history of osteomyelitis-culture obtained today-continue oral abx- follow up in the office on , sooner if needed 10/09/2016 Visit Plan: Right foot cbns-vbkcawzk-vpgic washer dropped on foot-xray negative but pain continues to increase-recommend MRI of foot for further evaluation-refer to wound care for lesions on right foot, patient has diabetes and history of osteomyelitis-culture obtained today-continue oral abx- follow up in the office on , sooner if needed 10/09/2016 Appointment: Marcela Oshea WPtel: [address] [place], [place] [phone] (30 min) Complex 10/09/2016 Patient Education: Patient Medication Summary Completed 10/09/2016 Visit Plan: Cellulitis - continue with oral antibiotics as previously directed, return to clinic as previously directed, call for acute change in symptoms, worsening redness, warmth, discharge. 10/06/2016 Appointment: Marcela Oshea WPtel: [address] [place] [phone] [place] (10 min) Simple 10/06/2016 Patient Education: Patient Medication Summary Completed 10/06/2016 Appointment: Marcela Oshea WPtel: [address] [place], [place] [phone] [place] (30 min) Complex 08/24/2016 Referral: Sun Glynn Referral Completed 07/21/2016 Visit Plan: Low back pain- history of spinal fusion- patient for xray lumbar spine-RX sent to [facility] pharmacy and instructed on use-topical voltaren samples provided and instructed on use. Ok to use tylenol as needed as well. The patient is to call the office if the pain is worsening or does not improve. Pressure ulcer left 4th toe-refer to Dr Glynn for evaluation 07/18/2016 Appointment: Marcela Oshea WPtel: [phone] [facility] [place] [address] (30 min) Complex 07/18/2016 Patient Education: Patient Medication Summary Completed 07/18/2016 Patient Education: Obesity Completed 07/18/2016 Care Plan: Referral Order SNOMED-CT : [id number] Cancelled 07/18/2016 Visit Plan: Diabetes Mellitus - [...] glucose control. 06/22/2016 Appointment: Marcela Oshea WPtel: [phone] [phone] (30 min) Complex 06/22/2016 Patient Education: [...] CBC today 05/23/2016 Appointment: Marcela Oshea WPtel: [phone] [phone] (30 min) Complex 05/23/2016 Patient Education: [...] of plan. 05/15/2016 Appointment: Marcela Oshea WPtel: [phone] [phone] (15 min) Moderate 05/15/2016 Patient Education: Patient [...] Sun [facility]nn Referral Appointment Requested Instructions Comment STAY OFF LOSARTAN AND CHOLESTEROL MEDICATION FOR NOW . DM- continue same medications-monitor blood sugars routinely as directed -rx for new glucometer and test strips provided Bipolar-currently depressed-patient start on vraylar-follow up in 2 weeks, sooner if needed. Patient and verbalied understanding of plan. Hypotension-stay off losartan . Hypertension - well controlled - continue with current medications, continue with no added salt diet. Pt has been encouraged to exercise daily. The pt has been advised to call the office if there are any acute concerns about change in blood pressure readings at home. Cough-resolved START CHECKING BLOOD SUGARS . Diabetes Mellitus [...] readings are starting to become less controlled. Elmhdkxec-vahpqyxm-safytgll to monitor Generalized weakness-refer for PT-patient refuses today but will consider continue oral antibiotic start using topical antibiotic ointment to scabbed areas and cover with dressing follow up , sooner if needed refer to wound care mri left foot due to increased pain -concern for fracture from injury . Right foot zvgu-lsqmijbl-wgyiw washer dropped on foot-xray negative but pain [...] for fracture from injury . Right foot ptyv-omktpmoi-gfgaw washer dropped on foot-xray negative but pain [...] for fracture from injury . Right foot hoas-dqxdmvky-pamjh washer dropped on foot-xray negative but pain continues to increase-recommend MRI of foot for further evaluation-refer to wound care for lesions on right foot, patient has diabetes and history of osteomyelitis-culture obtained today-continue oral abx-follow up in the office on , sooner if needed . Hypertension - well [...] check HgbA1c flu shot today - . Abrasion left arm - Pt was instructed to keep the wound clean, wash with antibacterial soap, use triple antibiotic ointment, call if redness, pustular drainage, or any other acute concerns. . Poison Jana - pt is to use topical treatments as directed. Pt is cleanse clothing in hot water with soap, and call if symptoms do not improve or if they worsen. Kenalog injection today in the office-monitor blood sugars closely over the next 2-3 days-use calamine as directed-call if you want anai edge called into [facility]. REPEAT LABS BEFORE YOUR NEXT APPOINTMENT IN [...] blood glucose control. Tick bite-continue doxycycline . Diabetes Mellitus - I have recommended [...] to allow for greater blood glucose control. . Cellulitis right foot-cultured today in the office-home health to reapply wound vac--appt with wound care on to evaluate for debridement- TOUJEO 25 UNITS DAILY. NOTIFY CLINIC IF [...] readings are starting to become less controlled. levaquin re-culture wound refer to wound care . Cellulitis-right foot wound-post op resection of first metatarsal head- finished one week of cipro-cultured wound again today in the office-will do levaquin daily until culture is back-dressing changes today in the office-will refer to wound care-needs dressings to help with extra moisture. Patient verbalized understanding of plan. stop the vraylar start on cymbalta 30mg [...] - stop Vraylar and start on cymbalta REPEAT CBC Toujeo 10 units daily . [...] glucose control. Elevated Hgb-check CBC today . Diabetes Mellitus - controlled - per [...] change in blood pressure readings at home. . Poison Jana - pt is to use topical treatments as directed. Pt is cleanse clothing in hot water with soap, and call if symptoms do not improve or if they worsen. . Right foot pain-MRI shows foreign body-appt with Dr Grewal for evaluation on Sunday. STOP MELOXICAM CONTINUE LYRICA 50 UNITS TOUJEO [...] allow for greater blood glucose control. Joint ecin-bgbdgcqt-dxyxnfn-symptoms have improved -stop meloxicam due to upset stomach-call if symptoms return . DM-weight loss-not checking blood sugars-patient sent for labs today HTN-low wilim-bhuolas-zlinx labs Callus of foot and fissue of heel-refer to Dr Glynn for evaluation Esophageal Reflux - the patient has been counseled against excessive intake of caffeine, spicy foods, peppermint, and cinnamon - all of which can exacerbate esophageal reflux. The patient is to take medications as prescribed and call the office if the symptoms are not improving. . Bilateral hip puad-lyhdlmai-cmkjlqp IM injection administered today for c/o continued myalgia/arthralgia. Patient to start taking Meloxicam 15mg PO daily. Advised to return to clinic if symptoms do not improve. culture of right foot strep swab prilosec [...] or concerns. Patient verbalized understanding of plan. 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 Low back pain- history of spinal fusion-patient for xray lumbar spine-RX sent to [facility] pharmacy and instructed on use-topical voltaren samples provided and instructed on use. Ok to use tylenol as needed as well. The patient is to call the office if the pain is worsening or does not improve. Pressure ulcer left 4th toe-refer to Dr Glynn for evaluation RECOMMEND PROBIOTICS TWICE DAILY FLU SWAB ROCEPHIN [...] readings at home. Diabetes Mellitus -check labs Yynqbnqv-vehdeys-apaq bite-rx for doxycycline-follow up in 2 weeks [...]
--- OUTSIDE RECORDS SUMMARY | 2018-10-20 11:20 | XMS REPORT | CCD ---
Author Author Madeline Kennedy MD, 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 Name Role Phone PP Unavailable CCM Unavailable Summary Purpose Interface Exchange Insurance Providers Payer name Policy type / Coverage type Covered constitution party ID Effective Begin Date Effective End Date Blue Cross Blue Shield [facility] Blue Cross/Blue Shield [id number] Unknown Family history Father Diagnosis Age At Onset Hyperlipidemia Unknown Heart Attack Unknown Mother Diagnosis Age At Onset Hypertension Unknown Social History Social History Element Codes Description Effective Dates Marital status Unknown Mignon 01/20/2016 Number of children Unknown 4 01/20/2016 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/[address]: 604980696 Never smoker 01/20/[address]: 709139547 Never drinks alcohol 01/20/2016 Allergies, Adverse Reactions, [...] U-100 Insulin aspart 100 unit/mL subcutaneous RxNorm: 7953508 10 Unit(s) SQ AC 06/18/20182017 Active this is an update on his medication Lasix 20 mg tablet RxNorm: 417971 1 Tablet(s) PO BIW 201710/09/2018 Active atorvastatin 80 mg tablet RxNorm: 809499 1 Tablet(s) PO QHS 04/201812/06/2018 Active clonazepam 1 mg tablet RxNorm: 273988 2 Tablet(s) PO HS 201706/04/2019 Active Lyrica 50 mg capsule RxNorm: 490550 Capsule(s) PO daily 2017 No Stop Date Active clonazepam 1 mg tablet RxNorm: 796540 2 Tablet(s) PO HS as needed 06/10/2018 06/09/2018 Inactive Lasix 20 mg tablet RxNorm: 578586 1 Tablet(s) PO TIW 201706/11/2018 Inactive Toujeo SoloStar U-300 Insulin 300 unit/mL (1.5 mL) subcutaneous pen RxNorm: 3835999 50 Unit(s) SQ daily 05/07/2018 No Stop Date Active meloxicam 15 mg tablet RxNorm: 937694 15 Milligram(s) PO daily 05/02/2018 05/12/2018 Inactive ketorolac 30 mg/mL injection solution RxNorm: 319867 2 Milliliter(s) Inj 05/02/2018 05/02/2018 Inactive Toujeo SoloStar U-300 Insulin 300 unit/mL (1.5 mL) subcutaneous pen RxNorm: 4215950 45 Unit(s) daily 04/29/2018 Inactive clonazepam 1 mg tablet RxNorm: 660975 1 Tablet(s) PO Q8 as needed 04/29/2018 06/09/2018 Inactive doxycycline hyclate 100 mg tablet RxNorm: 2984620 1 Tablet(s) PO BID 04/29/2018 05/12/2018 Inactive Cymbalta 30 mg capsule,delayed release RxNorm: 731094 1 Capsule(s) PO QAM 03/13/2018 10/08/2018 Active Lexapro 10 mg tablet RxNorm: 892787 1 Tablet(s) PO QPM 201703/03/2018 Inactive Toujeo SoloStar U-300 Insulin 300 unit/mL (1.5 mL) subcutaneous pen RxNorm: 6447619 20 Unit(s) daily 02/28/2018 Inactive Protonix 40 mg tablet,delayed release RxNorm: 720403 1 Tablet(s) PO daily 01/29/2018 06/09/2018 Inactive clonazepam 1 mg tablet RxNorm: 858012 1 Tablet(s) PO Q8 as needed 12/12/2017 03/10/2018 Inactive Tamiflu 75 mg capsule RxNorm: 848690 1 Capsule(s) PO BID 201712/03/2017 Inactive doxycycline hyclate 100 mg capsule RxNorm: 9782414 1 Capsule(s) PO BID 09/07/2017 09/20/2017 Inactive doxycycline hyclate 100 mg capsule RxNorm: 0691737 1 Capsule(s) PO BID 08/27/2017 09/06/2017 Inactive prednisone 20 mg tablet RxNorm: 374758 2 Tablet(s) PO daily 08/31/2017 Inactive clopidogrel 75 mg tablet RxNorm: 832405 1 Tablet(s) PO daily 06/09/2018 Inactive atorvastatin 40 mg tablet RxNorm: 683690 1 Tablet(s) PO QHS 02/27/2018 Inactive losartan 25 mg tablet RxNorm: 272490 TAKE ONE TABLET BY MOUTH DAILY 08/22/2017 06/09/2018 Inactive Toujeo SoloStar 300 unit/mL (1.5 mL) subcutaneous insulin pen RxNorm: 9590348 45 Unit(s) daily 08/17/2017 08/20/2017 Inactive mupirocin 2 % topical ointment RxNorm: 944002 1 Application TOP TID to the lesions on chest 08/16/2017 08/25/2017 Inactive Toujeo SoloStar 300 unit/mL (1.5 mL) subcutaneous insulin pen RxNorm: 5963565 40 Unit(s) daily 08/16/2017 08/16/2017 Inactive valacyclovir 1 gram tablet RxNorm: 800292 1 Tablet(s) PO TID 08/01/2017 Inactive clonazepam 1 mg tablet RxNorm: 867301 1 Tablet(s) PO Q8 as needed 07/03/2017 09/30/2017 Inactive Levaquin 500 mg tablet RxNorm: 178203 1 Tablet(s) PO daily 06/25/2017 Inactive Levaquin 500 mg tablet RxNorm: 855293 1 Tablet(s) PO daily 06/21/2017 Inactive losartan 25 mg tablet RxNorm: 793181 1 Tablet(s) PO daily 201608/16/2017 Inactive nystatin 100,000 unit/mL oral suspension RxNorm: 541803 5 Milliliter(s) PO QID Swish et swallow 06/18/2017 06/17/2017 Inactive nystatin 100,000 unit/mL oral suspension RxNorm: 560829 5 Milliliter(s) PO QID Swish et swallow 06/18/2017 06/27/2017 Inactive Cipro 500 mg tablet RxNorm: 371218 1 Tablet(s) PO BID 201606/18/2017 Inactive Cipro 500 mg tablet RxNorm: 491124 1 Tablet(s) PO BID 201606/11/2017 Inactive Toujeo SoloStar 300 unit/mL (1.5 mL) subcutaneous insulin pen RxNorm: 7085896 INJECT 10 UNITS UNDER THE SKIN DAILY 06/12/2017 08/15/2017 Inactive Keflex 500 mg capsule RxNorm: 316839 1 Capsule(s) PO TID 201606/13/2017 Inactive doxycycline hyclate 100 mg capsule RxNorm: 2166730 1 Capsule(s) PO BID 05/17/2017 05/21/2017 Inactive doxycycline hyclate 100 mg capsule RxNorm: 7903246 1 Capsule(s) PO BID 05/11/2017 05/16/2017 Inactive losartan 25 mg tablet RxNorm: 600990 1 Tablet(s) PO daily 201606/17/2017 Inactive atorvastatin 40 mg tablet RxNorm: 459761 1 Tablet(s) PO daily 03/01/2017 08/23/2017 Inactive clopidogrel 75 mg tablet RxNorm: 745721 1 Tablet(s) PO daily 08/23/2017 Inactive Flonase Allergy Relief 50 mcg/actuation nasal spray, suspension RxNorm: 2914229 2 [place] NASAL daily 02/16/20172016 Inactive Augmentin 875 mg-125 mg tablet RxNorm: 068560 1 Tablet(s) PO BID 02/16/2017 02/22/2017 Inactive GET PROBIOTIC TO TAKE WHILE ON ABX Tamiflu 75 mg capsule RxNorm: 753234 1 Capsule(s) PO BID 201602/20/2017 Inactive ceftriaxone 500 mg solution for injection RxNorm: 9950495 1 Milliliter(s) Inj 02/16/2017 02/16/2017 Inactive Kenalog 40 mg/mL suspension for injection RxNorm: 3714690 1 Milliliter(s) Inj 02/16/2017 02/16/2017 Inactive Toujeo SoloStar 300 unit/mL (1.5 mL) subcutaneous insulin pen RxNorm: 3926738 25 Unit(s) SQ QAM 02/12/2017 06/10/2017 Inactive Toujeo SoloStar 300 unit/mL (1.5 mL) subcutaneous insulin pen RxNorm: 4798218 10 Unit(s) SQ QAM 02/05/2017 02/11/2017 Inactive lisinopril 10 mg tablet RxNorm: 426231 1 Tablet(s) PO daily 02/28/2017 Inactive atorvastatin 40 mg tablet RxNorm: 558770 1 Tablet(s) PO daily 02/01/2017 02/28/2017 Inactive doxycycline hyclate 100 mg capsule RxNorm: 8861672 1 Capsule(s) PO BID 02/01/2017 02/10/2017 Inactive clonazepam 1 mg tablet RxNorm: 269668 1 Tablet(s) PO Q8 as needed 10/09/2016 01/05/2017 Inactive ceftriaxone 1 gram solution for injection RxNorm: 1552322 Inj 10/06/2016 10/06/2016 Inactive cyclobenzaprine 10 mg tablet RxNorm: 644209 1/2-1 Tablet(s) PO TID PRN 07/18/2016 01/28/2017 Inactive clonazepam 1 mg tablet RxNorm: 170937 1 Tablet(s) PO Q8 as needed 05/31/2016 05/29/2016 Inactive clonazepam 1 mg tablet RxNorm: 476147 1 Tablet(s) PO Q8 as needed 05/31/2016 08/28/2016 Inactive Toujeo SoloStar 300 unit/mL (1.5 mL) subcutaneous insulin pen RxNorm: 9494764 10 Unit(s) SQ daily 05/23/2016 01/28/2017 Inactive Crestor 10 mg tablet RxNorm: 546695 1 Tablet(s) PO QHS 201501/28/2017 Inactive Crestor 10 mg tablet RxNorm: 144065 1 Tablet(s) PO QHS 201505/18/2016 Inactive clonazepam 1 mg tablet RxNorm: 868470 1 Tablet(s) PO Q8 as needed 04/25/2016 05/30/2016 Inactive prednisone 20 mg tablet RxNorm: 773356 3 Tablet(s) PO daily 06/201602/10/2016 Inactive prednisone 20 mg tablet RxNorm: 545138 3 Tablet(s) PO daily 06/201605/14/2016 Inactive Kenalog 40 mg/mL suspension for injection RxNorm: 1437782 Milliliter(s) Inj 01/20/2016 01/20/2016 Inactive aspirin 81 mg tablet,delayed release RxNorm: 907421 1 Tablet(s) PO daily No Start Date Active Brilinta 90 mg tablet RxNorm: 0505049 1 Tablet(s) PO BID No Start Date Active Coreg 6.25 mg tablet RxNorm: 255058 1 Tablet(s) PO BID No Start Date Active acetaminophen 500 mg tablet RxNorm: 695491 1-2 Tablet(s) PO as needed No Start Date Active clopidogrel 75 mg tablet RxNorm: 955313 1 Tablet(s) PO daily No Start Date 02/28/2017 Inactive Novolog Flexpen U-100 Insulin aspart 100 unit/mL subcutaneous RxNorm: 2241708 5 units with breakfast lunch and 10 supper Unit(s) SQ No Start Date 06/17/2018 Inactive clonazepam 1 mg tablet RxNorm: 339856 1 Tablet(s) PO QHS No Start Date 04/24/2016 Inactive acyclovir 400 mg tablet RxNorm: 370568 2 Tablet(s) PO 5x daily No Start Date 02/28/2017 Inactive Lyrica 50 mg capsule RxNorm: 308086 Capsule(s) PO BID No Start Date 06/09/2018 Inactive Vraylar 3 mg capsule RxNorm: 2621704 1 Capsule(s) PO daily No Start Date 03/12/2018 Inactive Medication Administered Medication Codes Instructions Start Date Status ketorolac 30 mg/mL injection solution RxNorm: 668764 2Milliliter 05/02/2018 No longer Active ceftriaxone 500 mg solution for injection RxNorm: 5826491 1Milliliter 02/16/2017 No longer Active Kenalog 40 mg/mL suspension for injection RxNorm: 2211098 1Milliliter 02/16/2017 No longer Active ceftriaxone 1 gram solution for injection RxNorm: 1037889 10/06/2016 No longer Active Kenalog 40 mg/mL suspension for injection RxNorm: 0547120 Milliliter 01/20/2016 No longer Active Immunizations Vaccine Codes Date Status Influenza CVX: 141 08/16/2017 completed Assessments Condition Codes Effective Dates Diarrhea, unspecified ICD-10: R19.7 ICD-9: 787.91 06/21/2018 Type 2 diabetes mellitus with hyperglycemia ICD-10: E11.65 ICD-9: 250.00 06/18/2018 Essential (primary) hypertension ICD-10: I10 ICD-9: 401.1 06/18/2018 Localized edema ICD-10: R60.0 ICD-9: 782.3 06/04/2018 Pain in right hip ICD-10: M25.551 ICD-9: 719.45 05/13/2018 Pain in left hip ICD-10: M25.552 ICD-9: 719.45 05/13/2018 Myalgia ICD-10: M79.1 ICD-9: 729.1 05/13/2018 Major depressive disorder, single episode, moderate [...] ICD-10: E11.621 ICD-9: 250.80 01/29/2018 Pain in right shoulder ICD-10: M25.511 ICD-9: 719.41 08/27/2017 Pain in left shoulder ICD-10: M25.512 ICD-9: 719.41 08/27/2017 VACCIN FOR INFLUENZA ICD-10: [...] 05/04/2017 Cough ICD-10: R05 ICD-9: 786.2 03/01/2017 Nasal congestion ICD-10: R09.81 ICD-9: 478.19 02/16/2017 Acute recurrent maxillary sinusitis ICD-10: J01.01 ICD-9: 461.0 02/16/2017 Disorientation, unspecified ICD-10: R41.0 ICD-9: 293.0 02/05/2017 Muscle weakness (generalized) ICD-10: M62.81 ICD-9: 728.87 02/05/2017 Pain in right foot ICD-10: M79.671 ICD-9: 729.5 10/09/2016 Other deformities of toe(s) (acquired), left foot ICD-10: M20.5X2 ICD-9: 735.5 07/18/2016 Low back pain ICD-10: M54.5 ICD-9: 724.2 07/18/2016 Mixed hyperlipidemia ICD-10: E78.2 ICD-9: 272.2 05/23/2016 Other hemoglobinopathies ICD-10: D58.2 ICD-9: 282.7 05/23/2016 [...] Item Code Result Date C Diff An [id number] GDH TNP:Lab Request 06/22/2018 C Diff An [id number] Toxin A/B TNP:Lab Request 06/22/2018 C Diff An [id number] C Diff Analyzer TNP:Lab Request 2017 C Diff An [id number] IC OK? TNP:Lab Request 06/22/2018 CBC [id number] WBC 6.4 10e9/L 05/02/2018 CBC 3684871 RBC 5.60 10e12/L 05/02/2018 CBC 6502806 HEMOGLOBIN 17.0 g/dL 05/02/2018 CBC 8813257 HEMATOCRIT 48.0 % 05/02/2018 CBC 2437543 MCV 85.7 fL 05/02/2018 CBC 4964808 MCH 30.4 pg 05/02/2018 CBC 0677099 MCHC 35.4 g/dL 05/02/2018 CBC 0785748 PLATELET COUNT 166 10e9/L 05/02/2018 CBC 4667133 Mean Plt Volume 11.6 fL 05/02/2018 CBC 7112824 Neut Auto 48.6 % 05/02/2018 CBC 2413849 Lymph Auto 41.7 % 05/02/2018 CBC 5018130 Harlan Auto 8.1 % 05/02/2018 CBC 2267416 Eos Auto 1.1 % 05/02/2018 CBC 9642337 RDW 13.1 % 05/02/2018 CBC 6559887 Baso Auto 0.5 % 05/02/2018 CBC 6360801 Neutrophil Abs 3.11 10e9/L 05/02/2018 CBC 1821632 Lymphocyte Abs 2.67 10e9/L 05/02/2018 CBC 5118486 Monocyte Abs 0.52 10e9/L 05/02/2018 CBC 2302662 Eosinophil Abs 0.07 10e9/L 05/02/2018 CBC 9934065 Basophil Abs 0.03 10e9/L 05/02/2018 CBC 5670364 RDW-SD 40.0 fL 05/02/2018 CHEM 14 2656286 AST 17 U/L 05/02/2018 CHEM 14 1083971 ALT 17 U/L 05/02/2018 CHEM 14 7167328 BUN 17 mg/dL 05/02/2018 CHEM 14 6006206 ALBUMIN 4.0 g/dL 05/02/2018 CHEM 14 5861505 CHLORIDE 97 mmol/L 05/02/2018 CHEM 14 5914767 Bili Total 0.9 mg/dL 05/02/2018 CHEM 14 4922615 ALK PHOS 67 U/L 05/02/2018 CHEM 14 6103992 SODIUM 135 mmol/L 05/02/2018 CHEM 14 9622766 CREATININE 1.18 mg/dL 05/02/2018 CHEM 14 2783623 CALCIUM 9.4 mg/dL 05/02/2018 CHEM 14 8601386 POTASSIUM 4.4 mmol/L 05/02/2018 CHEM 14 5626885 TOTAL PROTEIN 6.9 g/dL 05/02/2018 CHEM 14 5463209 GLUCOSE 316 mg/dL 05/02/2018 CHEM 14 8230522 Bicarbonate 29 mmol/L 05/02/2018 CHEM 14 5070816 AGAP 9 mmol/L 05/02/2018 MEAN GLUC 0356115 Calc Mean Gluc 283 mg/dL 05/02/2018 A1C HPLC 7438992 Hgb A1c 05490-4 11.5 % 05/02/2018 GFR CALC 8976223 GFR Non Afr Amr >60 mL/min 05/02/2018 GFR CALC 0584144 GFR Afr Amr >60 mL/min 05/02/2018 JI Gold 6401026 JIC Gold Complete 02/28/2018 GFR CALC 3215324 GFR Non Afr Amr >60 mL/min 02/28/2018 GFR CALC 8947995 GFR Afr Amr >60 mL/min 02/28/2018 UA W/CII 6423843 UA Urine Appear Normal 02/28/2018 UA W/CII 6998672 UA Protein 1+ 02/28/2018 UA W/CII 4944985 UA Hemoglobin Negative 02/28/2018 UA W/CII 3406560 UA Glucose 4+ 02/28/2018 UA W/CII 7509480 UA Ketones Trace 02/28/2018 UA W/CII 5460046 UA pH 5.5 02/28/2018 UA W/CII 7139535 U Spec [place] 1.015 02/28/2018 UA W/CII 4278924 UA Bilirubin Negative 02/28/2018 UA W/CII 5023304 UA Nitrite NEG 02/28/2018 UA W/CII 4076577 UA Leuk Esteras Negative 02/28/2018 MICR 3553483 UA WBC/hpf 1 02/28/2018 MICR 1006225 UA RBC hpf 2 02/28/2018 MICR 4012699 UA WBC auto 3.8 /uL 02/28/2018 MICR 4563460 UA RBC auto 12.2 /uL 02/28/2018 MICR 9628894 UA SQ EPI auto 2.3 /uL 02/28/2018 MICR 6407676 UA H Cast auto 0.10 /uL 02/28/2018 CBC 5719753 WBC 6.4 10e9/L 02/28/2018 CBC 7792688 RBC 5.51 10e12/L 02/28/2018 CBC 6647970 HEMOGLOBIN 16.7 g/dL 02/28/2018 CBC 3617321 HEMATOCRIT 46.9 % 02/28/2018 CBC 7631336 MCV 85.1 fL 02/28/2018 CBC 1385168 MCH 30.3 pg 02/28/2018 CBC 7321369 MCHC 35.6 g/dL 02/28/2018 CBC 5799732 PLATELET COUNT 173 10e9/L 02/28/2018 CBC 1996979 Mean Plt Volume 11.6 fL 02/28/2018 CBC 8215039 Neut Auto 51.8 % 02/28/2018 CBC 1078782 Lymph Auto 39.9 % 02/28/2018 CBC 8278906 [place] Auto 7.3 % 02/28/2018 CBC 9861186 RDW 13.3 % 02/28/2018 CBC 7199293 Eos Auto 0.8 % 02/28/2018 CBC 9158546 Baso Auto 0.2 % 02/28/2018 CBC 6923799 Neutrophil Abs 3.32 10e9/L 02/28/2018 CBC 8172761 Lymphocyte Abs 2.55 10e9/L 02/28/2018 CBC 2870707 Monocyte Abs 0.47 10e9/L 02/28/2018 CBC 4005581 Eosinophil Abs 0.05 10e9/L 02/28/2018 CBC 1358500 RDW-SD 40.8 fL 02/28/2018 CBC 1628490 Basophil Abs 0.01 10e9/L 02/28/2018 CHEM 14 2031217 AST 17 U/L 02/28/2018 CHEM 14 1975211 ALT 17 U/L 02/28/2018 CHEM 14 2819295 BUN 20 mg/dL 02/28/2018 CHEM 14 7195675 ALBUMIN 4.1 g/dL 02/28/2018 CHEM 14 4861920 CHLORIDE 97 mmol/L 02/28/2018 CHEM 14 6677731 Bili Total 1.3 mg/dL 02/28/2018 CHEM 14 6319672 ALK PHOS 78 U/L 02/28/2018 CHEM 14 9717775 SODIUM 135 mmol/L 02/28/2018 CHEM 14 1717043 CREATININE 1.09 mg/dL 02/28/2018 CHEM 14 4365551 CALCIUM 9.6 mg/dL 02/28/2018 CHEM 14 9391950 POTASSIUM 3.8 mmol/L 02/28/2018 CHEM 14 7723611 TOTAL PROTEIN 7.3 g/dL 02/28/2018 CHEM 14 7594321 GLUCOSE 349 mg/dL 02/28/2018 CHEM 14 8096952 Bicarbonate 29 mmol/L 02/28/2018 CHEM 14 5791310 AGAP 9 mmol/L 02/28/2018 Fei Mtn Spot'D Fev Igg 962591 RMSF, IGG -TITER IFA <1:64 11/2016 [place] Spotted Fever Igg/Igm 646193 FEI MT SPOTTED FEVER IGM EIA . 09/05/2017 [place] Spotted Fever Igg/Igm 884082 RMSF, IGM 0.17 index 09/05/2017 [place] Spotted Fever Igg/Igm 109263 FEI MT SPOTTED FEVER IGG EIA FLEX . 09/05/2017 [place] Spotted Fever Igg/Igm 531614 RMSF, IGG SCREEN-FLEX Positive 09/05/2017 Ehrlichia Chaffeensis Antibody Igm 510084 EHRLICHIA CHAFFEENSIS IGM < 1:16 09/03/2017 Ehrlichia Chaffeensis Antibody Igg 133681 EHRLICHIA CHAFFEENSIS IGG <1:64 09/03/2017 Lymes Disease Total Antibodies With Western Blot Reflex B. BURGDORFERI, IGG/IGM 0.223 08/30/2017 Lymes Disease Total Antibodies With Western Blot Reflex C-Reactive Protein Qnt Crqnt CRP 0.00 mg/dl 08/27/2017 Sed Rate Ord21 ESR 8 mm/hr 08/27/2017 Comp Metabolic Zan616 NA 135 mEq/L 08/16/2017 Comp Metabolic Tuo597 K 4.1 mEq/L 08/16/2017 Comp Metabolic Arc981 CL 98 mEq/L 08/16/2017 Comp Metabolic Uuk857 CO2 28.0 mEq/L 08/16/2017 Comp Metabolic Okx565 ANION GAP 13 08/16/2017 Comp Metabolic Gua961 GLUCOSE 299 mg/dL 08/16/2017 Comp Metabolic Xwf370 Creat 0.9 mg/dL 08/16/2017 Comp Metabolic Zbq451 eGFR 90 ml/min/1.73m2 08/16/2017 Comp Metabolic Whz282 BUN 20 mg/dL 08/16/2017 Comp Metabolic Agy592 B/C Ratio 21.5 Ratio 08/16/2017 Comp Metabolic Bft337 CALCIUM 9.2 mg/dL 08/16/2017 Comp Metabolic Vjd741 ALK PHOS 84 U/L 08/16/2017 Comp Metabolic Xvm648 AST(SGOT) 19 U/L 08/16/2017 Comp Metabolic Ugx387 ALT(SGPT) 24 U/L 08/16/2017 Comp Metabolic Omv810 BILI T 1.1 mg/dL 08/16/2017 Comp Metabolic Owy814 ALBUMIN 4.2 g/dL 08/16/2017 Comp Metabolic Fsv659 TPRO 7.2 g/dL 08/16/2017 Comp Metabolic Uwy431 GLOB 3.0 g/dL 08/16/2017 Comp Metabolic Ivi764 A/G Ratio 1.4 Ratio 08/16/2017 Comp Metabolic Bjr035 Osmo 284 mOsmo 08/16/2017 %Hba1C Gts500 % HbA1c 95070-0 12.5 % 08/16/2017 %Hba1C Arm920 Gluc Ave 312 mg/dL 08/16/2017 Urine Culture Ucult Complete NO Growth Day 2 06/23/2017 Urine Culture Ucult Preliminary NO Growth Day 1 06/23/2017 C RAP A SC [id number] Strep A Negative 06/08/2017 %Hba1C Mux595 % HbA1c 96329-8 9.5 % 05/04/2017 %Hba1C Dfz290 Gluc Ave 226 mg/dL 05/04/2017 Tsh Ord6 [...] 31.7 pg 05/04/2017 Cbc With Differential Ord2 Harlan% 8.5 % 05/04/2017 Cbc With Differential Ord2 MCHC 35.2 pg 05/04/2017 Cbc With Differential Ord2 Eos% 1.0 % 05/04/2017 Cbc With Differential Ord2 Baso% 0.3 % 05/04/2017 Cbc With Differential Ord2 PLT 158 K/ul 05/04/2017 Cbc With Differential Ord2 Neut ABS# 3.06 K/ul 05/04/2017 Cbc With Differential Ord2 RDW 13.6 % 05/04/2017 Cbc With Differential Ord2 Lymph ABS# 2.48 K/ul 05/04/2017 Cbc With Differential Ord2 [place] ABS# 0.5 K/ul 05/04/2017 Cbc With Differential Ord2 Eos ABS# 0.1 K/ul 05/04/2017 Cbc With Differential Ord2 Baso ABS# 0.0 K/ul 05/04/2017 Comp Metabolic Kgx204 NA 135 mEq/L 05/04/2017 Comp Metabolic Zjw975 K 4.2 mEq/L 05/04/2017 Comp Metabolic Mqo102 CL 99 mEq/L 05/04/2017 Comp Metabolic Oik641 CO2 26.0 mEq/L 05/04/2017 Comp Metabolic Ukg516 ANION GAP 14 05/04/2017 Comp Metabolic Fik607 GLUCOSE 277 mg/dL 05/04/2017 Comp Metabolic Kcf663 Creat 0.9 mg/dL 05/04/2017 Comp Metabolic Qkd526 eGFR 96 ml/min/1.73m2 05/04/2017 Comp Metabolic Xbf929 BUN 23 mg/dL 05/04/2017 Comp Metabolic Zlt119 B/C Ratio 26.1 Ratio 05/04/2017 Comp Metabolic Sjv848 CALCIUM 8.9 mg/dL 05/04/2017 Comp Metabolic Vat064 ALK PHOS 81 U/L 05/04/2017 Comp Metabolic Ghj657 AST(SGOT) 21 U/L 05/04/2017 Comp Metabolic Xxy021 ALT(SGPT) 27 U/L 05/04/2017 Comp Metabolic Tcx332 BILI T 1.2 mg/dL 05/04/2017 Comp Metabolic Zjd595 ALBUMIN 4.0 g/dL 05/04/2017 Comp Metabolic Moz199 TPRO 6.7 g/dL 05/04/2017 Comp Metabolic Uxg896 GLOB 2.7 g/dL 05/04/2017 Comp Metabolic Ycy171 A/G Ratio 1.5 Ratio 05/04/2017 Comp Metabolic Dkj354 Osmo 284 mOsmo 05/04/2017 C A/B FLU 1988180 Influenza A Scr Negative 02/16/2017 C A/B FLU 8015837 Influenza B Scr Positive 02/16/2017 Cbc With Differential Ord2 WBC 5.22 K/ul 05/23/2016 Cbc With Differential Ord2 RBC 5.21 M/ul 05/23/2016 Cbc With Differential Ord2 HGB 15.8 g/dl 05/23/2016 Cbc With Differential Ord2 Neut% 50.3 % 05/23/2016 Cbc With Differential Ord2 HCT 45.6 % 05/23/2016 Cbc With Differential Ord2 Lymph% 39.7 % 05/23/2016 Cbc With Differential Ord2 MCV 87.5 fl 05/23/2016 Cbc With Differential Ord2 MCH 30.3 pg 05/23/2016 Cbc With Differential Ord2 [place]% 8.8 % 05/23/2016 Cbc With Differential Ord2 MCHC 34.6 pg 05/23/2016 Cbc With Differential Ord2 Eos% 1.0 % 05/23/2016 Cbc With Differential Ord2 Baso% 0.2 % 05/23/2016 Cbc With Differential Ord2 PLT 141 K/ul 05/23/2016 Cbc With Differential Ord2 RDW 13.2 % 05/23/2016 Cbc With Differential Ord2 Neut ABS# 2.63 K/ul 05/23/2016 Cbc With Differential Ord2 Lymph ABS# 2.07 K/ul 05/23/2016 Cbc With Differential Ord2 [place] ABS# 0.5 K/ul 05/23/2016 Cbc With Differential Ord2 Eos ABS# 0.1 K/ul 05/23/2016 Cbc With Differential Ord2 Baso ABS# 0.0 K/ul 05/23/2016 Lipid Ord30 CHOL 397 mg/dL 05/17/2016 Lipid Ord30 HDL 48.0 mg/dl 05/17/2016 Lipid Ord30 TRIG 578 mg/dL 05/17/2016 Lipid Ord30 LDL Unable to calculate Due to elevated triglycerides mg/dL 05/17/2016 Lipid Ord30 C/HDL 8.3 Ratio 05/17/2016 %Hba1C Ukt724 % HbA1c 84874-1 12.4 % 05/16/2016 %Hba1C Mal446 Gluc Ave 309 mg/dL 05/16/2016 Cbc With [...] 87.4 fl 05/15/2016 Cbc With Differential Ord2 MCH 30.4 pg 05/15/2016 Cbc With Differential Ord2 [place]% 7.8 % 05/15/2016 Cbc With Differential Ord2 MCHC [...] 2.04 K/ul 05/15/2016 Cbc With Differential Ord2 [place] ABS# 0.5 K/ul 05/15/2016 Cbc With Differential Ord2 Eos ABS# 0.1 K/ul 05/15/2016 Cbc With Differential Ord2 Baso ABS# 0.0 K/ul 05/15/2016 Tsh Ord6 hTSH II 1.70 uIU/mL 05/15/2016 Comp Metabolic Mum943 NA 135 mEq/L 05/15/2016 Comp Metabolic Nzc947 K 3.9 mEq/L 05/15/2016 Comp Metabolic Lvn175 CL 96 mEq/L 05/15/2016 Comp Metabolic Cfb822 CO2 27.0 mEq/L 05/15/2016 Comp Metabolic Ekw592 ANION GAP 16 05/15/2016 Comp Metabolic Mda534 GLUCOSE 183 mg/dL 05/15/2016 Comp Metabolic Xpb089 Creat 1.1 mg/dL 05/15/2016 Comp Metabolic Axf600 eGFR 71 ml/min/1.73m2 05/15/2016 Comp Metabolic Sig646 BUN 17 mg/dL 05/15/2016 Comp Metabolic Ofp883 B/C Ratio 14.9 Ratio 05/15/2016 Comp Metabolic Vuf790 CALCIUM 9.6 mg/dL 05/15/2016 Comp Metabolic Kzm054 ALK PHOS 100 U/L 05/15/2016 Comp Metabolic Haq305 AST(SGOT) 20 U/L 05/15/2016 Comp Metabolic Yxz177 ALT(SGPT) 20 U/L 05/15/2016 Comp Metabolic Jsa265 BILI T 1.3 mg/dL 05/15/2016 Comp Metabolic Ydo332 ALBUMIN 4.6 g/dL 05/15/2016 Comp Metabolic Dsv757 TPRO 8.1 g/dL 05/15/2016 Comp Metabolic Nha219 GLOB 3.5 g/dL 05/15/2016 Comp Metabolic Stc451 A/G Ratio 1.3 Ratio 05/15/2016 Comp Metabolic Pbq756 Osmo 276 mOsmo 05/15/2016 Review of Systems [...] developed 05/13/2018 None Full Exam - General 1995 Constitutional general appearance Overall: in no acute distress 05/13/2018 None Full Exam - General 1994 Constitutional general appearance Overall: well nourished 05/13/2018 None Full Exam - General 1995 Eyes conjunctiva /eyelids Overall: conjunctiva clear 05/13/2018 None Full Exam - General 1995 Eyes conjunctiva /eyelids Overall: cornea clear 05/13/2018 [...] time 08/16/2017 None Full Exam - General 1995 Integument inspection of skin Rash/Lesions: surgical site [...] NO PRSV 4 MENA 3 YRS+ CPT-4: 30515 08/16/2017 IMMUNIZATION ADMIN CPT -4: 49711 08/16/2017 URINALYSIS NONAUTO W/O SCOPE CPT-4: 84385 06/21/2017 TRIAMCINOLONE ACET INJ NOS CPT-4: J3301 05/04/2017 THER/PROPH/DIAG INJ SC/IM CPT-4: 39318 05/04/2017 TRIAMCINOLONE ACET INJ NOS CPT-4: J3301 02/16/2017 ROCEPHIN, PER 250 MG CPT-4: J0696 02/16/2017 ROCEPHIN, PER 250 MG CPT-4: J0696 10/06/2016 URINALYSIS NONAUTO W/O SCOPE CPT-4: 92658 07/18/2016 TRIAMCINOLONE ACET INJ NOS CPT-4: J3301 01/20/2016 Vital Signs Date Vital 06/18/2018 Blood Pressure 1: 138/82 Code : 8480-6 BMI: 31.8 Code : 54219-2 Heart Rate 1 : 82 bpm Height: 6'2" SpO2: 97% Weight: 248 lbs 06/04/2018 Blood Pressure 1: 128/84 Code : 8480-6 BMI: 33.9 Code : 96304-9 Heart Rate 1 : 86 bpm Height: 6'2" SpO2: 95% Weight: 264 lbs 05/13/2018 Blood Pressure 1: 130/80 Code : 8480-6 BMI: 31.1 Code : 15802-7 Heart Rate 1 : 100 bpm Height: 6'2" SpO2: 94% Weight: 242 lbs 05/02/2018 Blood Pressure 1: 134/84 Code : 8480-6 BMI: 31.2 Code : 69736-1 Heart Rate 1 : 93 bpm Height: 6'2" SpO2: 98% Weight: 243 lbs 04/29/2018 Blood Pressure 1: 142/88 Code : 8480-6 BMI: 31.6 Code : 70691-2 Heart Rate 1 : 96 bpm Height: 6'2" SpO2: 96% Temperature: 36.7 (C) / 98.1 (F) Weight: 246 lbs 03/13/2018 Blood Pressure 1: 120/76 Code : 8480-6 BMI: 30.9 Code : 28313-8 Heart Rate 1 : 112 bpm Height: 6'2" SpO2: 97% Weight: 241 lbs 03/07/2018 Blood Pressure 1: 108/78 Code : 8480-6 BMI: 30.0 Code : 09078-8 Heart Rate 1 : 87 bpm Height: 6'2" SpO2: 98% Weight: 234 lbs 02/28/2018 Blood Pressure 1: 106/74 Code : 8480-6 BMI: 30.0 Code : 21563-3 Heart Rate 1 : 101 bpm Height: 6'2" SpO2: 98% Temperature: 36.4 (C) / 97.5 (F) Weight: 234 lbs 02/13/2018 Blood Pressure 1: 110/78 Code : 8480-6 BMI: 30.0 Code : 45910-8 Heart Rate 1 : 106 bpm Height: 6'2" SpO2: 98% Weight: 234 lbs 01/29/2018 Blood Pressure 1: 106/68 Code : 8480-6 BMI: 30.0 Code : 05085-8 Heart Rate 1 : 108 bpm Height: 6'2" SpO2: 98% Weight: 234 lbs 08/27/2017 Blood Pressure 1: 134/76 Code : 8480-6 Heart Rate 1: 98 bpm Height: SpO2: 97% Weight: 08/16/2017 Blood Pressure 1: 128/80 Code : 8480-6 BMI: 32.0 Code : 91647-7 Heart Rate 1 : 94 bpm Height: [...] SpO2: 97% Weight: 06/18/2017 Blood Pressure 1: 156/90 Code : 8480-6 Blood Pressure 1: 166/100 Code: 8480-6 Heart Rate 1: 102 bpm Height: SpO2: 97% Temperature: 36.6 (C) / 97.9 (F) Weight: 06/07/2017 Blood Pressure 1: 146/86 Code : 8480-6 Heart Rate 1: 95 bpm Height: 6'2" SpO2: 99% 05/17/2017 Blood Pressure 1: 142/92 Code : 8480-6 BMI: 31.8 Code : 10182-4 Heart Rate 1 : 102 bpm Height: [...] Code : 8480-6 BMI: 31.8 Code : 81550-0 Heart Rate 1 : 85 bpm Height: 6'2" SpO2: 96% Temperature: 36.6 (C) / 97.9 (F) Weight: 248 lbs 02/12/2017 Blood Pressure 1: 126/76 Code : 8480-6 BMI: 31.8 Code : 58302-4 Heart Rate 1 : 106 bpm Height: 6'2" SpO2: 91% Weight: 248 lbs 02/05/2017 Blood Pressure 1: 146/86 Code : 8480-6 BMI: 31.9 Code : 91627-2 Heart Rate 1 : 98 bpm Height: 6'2" SpO2: 87% Temperature: 36.7 (C) / 98.0 (F) Weight: 248 lbs 8 oz 01/29/2017 Blood Pressure 1: 132/84 Code : 8480-6 BMI: 31.8 Code : 68578-0 Heart Rate 1 : 83 bpm Height: 6'2" SpO2: 97% Weight: 248 lbs 10/13/2016 Blood Pressure 1: 128/72 Code : 8480-6 Heart Rate 1: 86 bpm SpO2: 94% 10/09/2016 Blood Pressure 1: 128/68 Code : 8480-6 Heart Rate 1: 136 bpm SpO2: 94% Temperature: 36.8 (C) / 98.2 (F) 10/06/2016 Blood Pressure 1: 140/80 Code : 8480-6 BMI: 32.1 Code : 04254-4 Heart Rate 1 : 94 bpm Height: 6'2" SpO2: 95% Weight: 250 lbs 07/18/2016 Blood Pressure 1: 128/86 Code : 8480-6 BMI: 32.1 Code : 83408-6 Heart Rate 1 : 89 bpm Height: 6'2" SpO2: 96% Weight: 250 lbs 06/22/2016 Blood Pressure 1: 118/70 Code : 8480-6 BMI: 32.1 Code : 53450-6 Heart Rate 1 : 70 bpm Height: 6'2" SpO2: 97% Weight: 250 lbs 05/23/2016 Blood Pressure 1: 128/80 Code : 8480-6 BMI: 32.1 Code : 88689-6 Heart Rate 1 : 76 bpm Height: 6'2" SpO2: 98% Weight: 250 lbs 05/15/2016 Blood Pressure 1: 110/90 Code : 8480-6 BMI: 31.3 Code : 77284-5 Heart Rate 1 : 111 bpm Height: 6'2" SpO2: 97% Temperature: 36.6 (C) / 97.8 (F) Weight: 244 lbs 01/20/2016 Blood Pressure 1: 128/76 Code : 8480-6 BMI: 33.0 Code : 10725-4 Heart Rate 1 : 103 bpm Height: [...] data Encounters Encounter Performer Location Codes Date ([id number]) 73073 EST. PATIENT, LEVEL IV Diagnosis: Type 2 diabetes mellitus with hyperglycemia[ICD10: E11.65] Diagnosis: Essential (primary) hypertension[ICD10: I10] [facility] CPT-4: 73455 06/18/2018 ([id number]) 81102 EST. PATIENT, LEVEL IV Diagnosis: Type 2 diabetes mellitus with hyperglycemia[ICD10: E11.65] Diagnosis: Essential (primary) hypertension[ICD10: I10] Diagnosis: Localized edema[ICD10: R60.0] Melida Ha MD, [facility] CPT- 4: 89233 06/04/2018 ([id number]) 60230 EST. PATIENT, LEVEL III Diagnosis: Type 2 diabetes mellitus with hyperglycemia[ICD10: E11.65] Diagnosis: Myalgia[ICD10: M79.1] Diagnosis: Pain in right hip[ICD10: M25.551] Diagnosis: Pain in left hip[ICD10: M25.552] Marcela Ha MD, [facility] CPT-4: 42660 05/13/2018 ([id number]) 34385 EST. PATIENT, LEVEL III Diagnosis: Myalgia[ICD10: M79.1] Diagnosis: Pain in right hip[ICD10: M25.551] Diagnosis: Pain in left hip[ICD10: M25.552] Marcela Ha MD, [facility] CPT-4: 76294 05/02/2018 ([id number]) 40481 EST. PATIENT, LEVEL IV Diagnosis: Essential (primary) hypertension[ICD10: I10] Diagnosis: Type 2 diabetes mellitus with hyperglycemia[ICD10: E11.65] Diagnosis: Major depressive disorder, single episode, moderate[ICD10: F32.1] Diagnosis: Myalgia[ICD10: M79.1] Marcela Ha MD, [facility] CPT-4: 97591 04/29/2018 ([id number]) 09035 EST. PATIENT, LEVEL IV Diagnosis: Type 2 diabetes mellitus with hyperglycemia[ICD10: E11.65] Diagnosis: Essential (primary) hypertension[ICD10: I10] Diagnosis: Major depressive disorder, single episode, moderate[ICD10: F32.1] Melida Ha MD, [facility] CPT-4: 67576 03/13/2018 ([id number]) 30338 EST. PATIENT, LEVEL III Diagnosis: Type 2 diabetes mellitus with hyperglycemia[ICD10: E11.65] Diagnosis: Bipolar disorder, current episode depressed, moderate[ICD10: F31.32] Diagnosis: Orthostatic hypotension[ICD10: I95.1] Marcela Ha MD, [facility] CPT-4: 22265 03/07/2018 ([id number]) 48012 EST. PATIENT, LEVEL IV Diagnosis: Type 2 diabetes mellitus with hyperglycemia[ICD10: E11.65] Diagnosis: Major depressive disorder, single episode, moderate[ICD10: F32.1] Diagnosis: Orthostatic hypotension[ICD10: I95.1] Diagnosis: Other fatigue[ICD10: R53.83] Marcela Ha MD, [facility] CPT-4: 40016 02/28/2018 12626 EST. PATIENT, LEVEL IV Diagnosis: Other fatigue[ICD10: R53.83] Diagnosis: Other malaise[ICD10: R53.81] Diagnosis: Gastro-esophageal reflux disease without esophagitis[ICD10: K21.9] Madeline Ha MD, [facility] CPT-4: 98327 02/13/2018 ([id number]) 86747 EST. PATIENT, LEVEL IV Diagnosis: Type 2 diabetes mellitus with foot ulcer[ICD10: E11.621] Diagnosis: Essential (primary) hypertension[ICD10: I10] Diagnosis: Gastro-esophageal reflux disease without esophagitis[ICD10: K21.9] Marcela Ha MD, [facility] CPT-4: 46357 01/29/2018 83970 EST. PATIENT, LEVEL III Diagnosis: Other malaise[ICD10: R53.81] Diagnosis: Other fatigue[ICD10: R53.83] Diagnosis: Pain in right shoulder[ICD10: M25.511] Diagnosis: Pain in left shoulder[ICD10: M25.512] Madeline Ha MD, [facility] CPT-4: 37054 08/27/2017 ([id number]) 29426 EST. PATIENT, LEVEL IV Diagnosis: Essential (primary) hypertension[ICD10: I10] Diagnosis: Type 2 diabetes mellitus with hyperglycemia[ICD10: E11.65] Diagnosis: VACCIN FOR INFLUENZA[ICD10: Z23] Melida Ha MD, [facility] CPT-4: 95200 08/16/2017 72924 EST. PATIENT, LEVEL III Diagnosis: Zoster without complications[ICD10: B02.9] Madeline Ha MD, [facility] CPT-4: 29646 07/26/2017 ([id number]) 66661 EST. PATIENT, LEVEL III Diagnosis: Cellulitis of right lower limb[ICD10: L03.115] Marcela Ha MD [facility] CPT-4: 97114 07/03/2017 68488 EST. PATIENT, LEVEL II Diagnosis: Laceration without foreign body of left forearm, initial encounter[ ICD10: S51.812A] Marcela Ha MD [facility] CPT-4: 83106 06/29/2017 ([id number]) 98958 EST. PATIENT, LEVEL III Diagnosis: Cellulitis of right lower limb[ICD10: L03.115] Diagnosis: Type 2 diabetes mellitus with foot ulcer[ICD10: E11.621] Marcela Ha MD [facility] CPT-4: 65514 06/18/2017 ([id number]) 26964 EST. PATIENT, LEVEL IV Diagnosis: Cellulitis of right lower limb[ICD10: L03.115] Diagnosis: Acute laryngopharyngitis[ICD10: J06.0] Diagnosis: Gastro-esophageal reflux disease without esophagitis[ICD10: K21.9] Marcela Ha MD [facility] CPT-4: 38057 06/07/2017 ([id number]) 99472 EST. PATIENT, LEVEL III Diagnosis: Type 2 diabetes mellitus with hyperglycemia[ICD10: E11.65] Diagnosis: Insect bite (nonvenomous) of abdominal wall, initial encounter[ICD10 : S30.861A] Marcela Ha MD [facility] CPT-4: 78308 05/17/2017 ([id number]) 63456 EST. PATIENT, LEVEL III Diagnosis: Allergic contact dermatitis due to plants, except food[ICD10: L23.7] Melida Ha MD [facility] CPT-4: 02459 05/04/2017 ([id number]) 82006 EST. PATIENT, LEVEL III Diagnosis: Essential (primary) hypertension[ICD10: I10] Marcela Ha MD, [facility] CPT-4: 62079 03/15/2017 ([id number]) 91540 EST. PATIENT, LEVEL III Diagnosis: Cough[ICD10: R05] Diagnosis: Essential (primary) hypertension[ICD10: I10] Marcela Ha MD [facility] CPT-4: 75423 03/01/2017 ([id number]) 50214 EST. PATIENT, LEVEL III Diagnosis: Cough[ICD10: R05] Diagnosis: Nasal congestion[ICD10: R09.81] Diagnosis: Acute recurrent maxillary sinusitis[ICD10: J01.01] CONSTANTINO Griffin MD CPT-4: 34337 02/16/2017 ([id number]) 44743 EST. PATIENT, LEVEL III Diagnosis: Type 2 diabetes mellitus with hyperglycemia[ICD10: E11.65] Marcela Ha MD [facility] CPT-4: 45799 02/12/2017 ([id number]) 43161 EST. PATIENT, LEVEL IV Diagnosis: Type 2 diabetes mellitus with hyperglycemia[ICD10: E11.65] Diagnosis: Muscle weakness (generalized)[ICD10: M62.81] Diagnosis: Disorientation, unspecified[ICD10: R41.0] Marcela Ha MD [facility] CPT-4: 66926 02/05/2017 ([id number]) Patient admitted to the hospital from clinic (NO CHARGE) Diagnosis: Type 2 diabetes mellitus with hyperglycemia[ICD10: E11.65] Diagnosis: Disorientation, unspecified[ICD10: R41.0] Diagnosis: Muscle weakness (generalized)[ICD10: M62.81] Marcela Ha MD [facility] CPT-4: 67104P 01/29/2017 ([id number]) Miscellaneous no charge Diagnosis: Cellulitis of right lower limb[ICD10: L03.115] Marcela Ha MD [facility] CPT-4: 50436 10/13/2016 ([id number]) Miscellaneous no charge Diagnosis: Type 2 diabetes mellitus with foot ulcer[ICD10: E11.621] Diagnosis: Pain in right foot[ICD10: M79.671] Marcela Ha MD [facility] CPT-4: 71301 10/09/2016 93319 EST. PATIENT, LEVEL II Diagnosis: Cellulitis of right lower limb[ICD10: L03.115] Marcela Ha MD [facility] CPT-4: 83168 10/06/2016 ([id number]) 61621 EST. PATIENT, LEVEL IV Diagnosis: Low back pain[ICD10: M54.5] Diagnosis: Other deformities of toe(s) (acquired), left foot[ICD10: M20.5X2] Diagnosis: Type 2 diabetes mellitus with foot ulcer[ICD10: E11.621] Marcela Ha MD , [facility] CPT-4: 28463 07/18/2016 ([id number]) 49011 EST. PATIENT, LEVEL III Diagnosis: Type 2 diabetes mellitus with hyperglycemia[ICD10: E11.65] Marcela Ha MD, [facility] CPT-4: 35887 06/22/2016 ([id number]) 65012 EST. PATIENT, LEVEL IV Diagnosis: Type 2 diabetes mellitus with hyperglycemia[ICD10: E11.65] Diagnosis: Mixed hyperlipidemia[ICD10: E78.2] Diagnosis: Other hemoglobinopathies[ICD10: D58.2] Marcela Ha MD, [facility] CPT-4: 44605 05/23/2016 ([id number]) 76074 EST. PATIENT, LEVEL IV Diagnosis: Type 2 diabetes mellitus with other specified complication[ICD10: E11.69] Diagnosis: Dehydration[ICD10: E86.0] Marcela Ha MD, [facility] CPT-4: 94586 05/15/2016 ([id number]) OFFICE VISIT, NEW - LEVEL 3 Diagnosis: Allergic contact dermatitis due to plants, except food[ICD10: L23.7] Madeline Ha MD, [facility] CPT-4: 96662 01/20/2016 Plan of Care Planned Activity Notes Codes Status Date Patient Education: Patient Medication Summary Completed 06/21/2018 Care Plan: C CDIFF MO Pending 06/21/2018 Visit Plan: Diabetes Mellitus - [...] home. 06/18/2018 Appointment: Melida Ha WPtel: [phone] [facility] [place] (15 min) Moderate 06/18/2018 Patient Education: [...] improves. 06/04/2018 [phone] [place] ([facility]) Moderate 06/04/2018 Patient [...] allow for greater blood glucose control. Joint ngka-kklircte-eymdwbt- symptoms have improved -stop meloxicam due to upset stomach-call if symptoms return 05/13/2018 Appointment: Marcela Oshea WPtel: [phone] [phone] [place] (30 min) Complex 05/13/2018 Patient Education: Patient Medication Summary Completed 05/13/2018 Visit Plan: Bilateral hip qbsb-nlyxedlo-psvchls IM injection administered today for c/o continued myalgia/arthralgia. Patient to start taking Meloxicam 15mg PO daily. Advised to return to clinic if symptoms do not improve. 05/02/2018 Appointment: Marcela Oshea WPtel: [phone] (30 min) Complex 05/02/2018 Patient Education: [...] readings at home. Diabetes Mellitus -check labs Ytvxknax-btuejsr-rhqc bite-rx for doxycycline-follow up in 2 weeks 04/29/2018 Appointment: Marcela Oshea WPtel: [phone] (15 min) Moderate 04/29/2018 Patient Education: Patient Medication Summary Completed 04/29/2018 Appointment: Melida Ha WPtel: [facility] (15 min) Moderate 04/15/2018 Appointment: Marcela Oshea WPtel: [address] [place], [place] [phone] (30 min) Complex 03/21/2018 Visit Plan: Hypertension [...] cymbalta 03/13/2018 Appointment: [phone] [place] (30 min) Complex 03/13/2018 Patient Education: Patient Medication Summary Completed 03/13/2018 Visit Plan: DM-continue same medications-monitor blood sugars routinely as directed -rx for new glucometer and test strips provided Bipolar-currently depressed-patient start on vraylar-follow up in 2 weeks, sooner if needed. Patient and verbalied understanding of plan. Hypotension- stay off losartan 03/07/2018 Appointment: [phone] [place] (30 min) Complex 03/07/2018 Patient Education: Patient Medication Summary Completed 03/07/2018 Appointment: [phone] [place] (15 min) Moderate 03/04/2018 Visit [...] patient. 02/28/2018 Appointment: Marcela Oshea WPtel: [phone] (30 min) Complex 02/28/2018 Patient Education: [...] not improving. 02/13/2018 Appointment: Madeline Kennedy WPtel: [facility] (15 min) Moderate 02/13/2018 Patient Education: Patient Medication Summary Completed 02/13/2018 Referral: Sun Glynn Patient informed. Referral info faxed. Completed Visit Plan: DM-weight loss-not checking blood sugars- patient sent for labs today HTN-low qzmny-vsmpvnc-rhbfe labs Callus of foot and fissue of heel-refer to Dr Glynn for evaluation Esophageal Reflux - the patient has been counseled against excessive intake of caffeine, spicy foods, peppermint , and cinnamon - all of which can exacerbate esophageal reflux. The patient is to take medications as prescribed and call the office if the symptoms are not improving. 01/29/2018 Appointment: [facility] Oshe[phone] [phone] (30 min) Complex 01/29/2018 Patient Education: Patient Medication Summary Completed 01/29/2018 Care Plan: Comp Metabolic Cancelled 01/29/2018 Care Plan: Cbc With Differential Cancelled 01/29/2018 Care Plan: %Hba1C LOINC : 21821-5 Cancelled 01/29/2018 Care Plan: Referral Order SNOMED-CT : [id number] Cancelled 01/29/2018 Visit Plan: Fatigue, malaise, joint [...] concerns. 08/27/2017 Appointment: Madeline Kennedy WPtel: [facility] (15 min) Moderate 08/27/2017 Patient Education: [...] today - 08/16/2017 Appointment: Melida Ha WPtel: [facility] (30 min) Complex 08/16/2017 Patient Education: Patient Medication Summary Completed 08/16/2017 Patient Education: Obesity Completed 08/16/2017 Appointment: Madeline Kennedy WPtel: [facility] (30 min) Complex 08/07/2017 Visit Plan: Shingles [...] considered contagious. 07/26/2017 Appointment: Madeline Kennedy WPtel: [facility] (15 min) Moderate 07/26/2017 Patient Education: Patient Medication Summary Completed 07/26/2017 Visit Plan: Cellulitis right foot-cultured today in the office-home health to reapply wound vac--appt with wound care on to evaluate for debridement- 07/03/2017 Appointment: Marcela Oshea WPtel: [address] [place], [place] [phone] (30 min) Complex 07/03/2017 Patient Education: Patient Medication Summary Completed 07/03/2017 Visit Plan: Abrasion left arm - Pt was instructed to keep the wound clean, wash with antibacterial soap, use triple antibiotic ointment, call if redness, pustular drainage, or any other acute concerns. 06/29/2017 Appointment: Marcela Oshea WPtel: [phone] (15 min) Moderate 06/29/2017 Patient Education: [...] plan. 06/18/2017 Appointment: Marcela Oshea WPtel: [phone] (15 min) Moderate 06/18/2017 Patient Education: [...] prilosec 06/07/2017 Appointment: Marcela Oshea WPtel: [phone] (10 min) Simple 06/07/2017 Patient Education: [...] bite-continue doxycycline 05/17/2017 Appointment: Marcela Oshea WPtel: [phone] (30 min) Complex 05/17/2017 Patient Education: [...] if you want anai edge called into [facility]. 05/04/2017 Appointment: Marcela Oshea WPtel: [phone] (30 min) Complex 05/04/2017 Patient Education: [...] Cough-resolved 03/15/2017 Appointment: Marcela Oshea WPtel: [facility] [address] (15 min) Moderate 03/15/2017 Patient Education: Patient Medication Summary Completed 03/15/2017 Appointment: Marcela Oshea WPtel: [address] [place] [address] (30 min) Complex 03/12/2017 Visit Plan: Feng [...] as discussed 02/16/2017 Appointment: Marcela Oshea WPtel: [facility] [address] (15 min) Moderate 02/16/2017 Patient Education: [...] less controlled. 02/12/2017 Appointment: Marcela Oshea WPtel: [facility] [address] (30 min) Complex 02/12/2017 Patient Education: Patient Medication Summary Completed 02/12/2017 Appointment: Marcela Oshea WPtel: [phone] (30 min) Complex 02/06/2017 Visit Plan: Diabetes [...] will consider 02/05/2017 Appointment: Marcela Oshea WPtel: [phone] (30 min) Complex 02/05/2017 Patient Education: Patient Medication Summary Completed 02/05/2017 Appointment: Marcela Oshea WPtel: [phone] (30 min) Complex 01/30/2017 Visit Plan: Acute confusion-uncontrolled diabetes- chronically noncompliant with treatment and stopped his insulin several months ago-r/o stroke vs DKA-Dr Ha in to evaluate patient-plan to admit for further work up and treatment-patient's called and she transported him to the hospital 01/29/2017 Appointment: Marcela Oshea WPtel: [phone] (30 min) Complex 01/29/2017 Patient Education: Patient Medication Summary Completed 01/29/2017 Patient Education: Obesity Completed 01/29/2017 Visit Plan: Right foot pain-MRI shows foreign body-appt with Dr Grewal for evaluation on Sunday. 10/13/2016 Appointment: Marcela Oshea WPtel: [phone] [place] (15 min) Moderate 10/13/2016 Patient Education: Patient Medication Summary Completed 10/13/2016 Appointment: Marcela Oshea WPtel: [address] [place], [place] [phone] (30 min) Complex 10/12/2016 Visit Plan: Right foot pcrg-lrilbpjr-rcxsj washer dropped on foot-xray negative but pain continues to increase-recommend MRI of foot for further evaluation-refer to wound care for lesions on right foot, patient has diabetes and history of osteomyelitis-culture obtained today-continue oral abx- follow up in the office on , sooner if needed 10/09/2016 Visit Plan: Right foot gmuv-irmncbrl-bqexe washer dropped on foot-xray negative but pain continues to increase-recommend MRI of foot for further evaluation-refer to wound care for lesions on right foot, patient has diabetes and history of osteomyelitis-culture obtained today-continue oral abx- follow up in the office on , sooner if needed 10/09/2016 Visit Plan: Right foot xpub-ullsuoej-fxsvr washer dropped on foot-xray negative but pain continues to increase-recommend MRI of foot for further evaluation-refer to wound care for lesions on right foot, patient has diabetes and history of osteomyelitis-culture obtained today-continue oral abx- follow up in the office on , sooner if needed 10/09/2016 Appointment: Marcela Oshea WPtel: [address] [place], [place] [phone] (30 min) Complex 10/09/2016 Patient Education: Patient Medication Summary Completed 10/09/2016 Visit Plan: Cellulitis - continue with oral antibiotics as previously directed, return to clinic as previously directed, call for acute change in symptoms, worsening redness, warmth, discharge. 10/06/2016 Appointment: Marcela Oshea WPtel: [address] [place], [place] [phone] [place] (10 min) Simple 10/06/2016 Patient Education: Patient Medication Summary Completed 10/06/2016 Appointment: Marcela Oshea WPtel: [address] [place], [place] [phone] [place] (30 min) Complex 08/24/2016 Referral: Sun Glynn Referral Completed 07/21/2016 Visit Plan: Low back pain- history of spinal fusion- patient for xray lumbar spine-RX sent to [facility] and instructed on use-topical voltaren samples provided and instructed on use. Ok to use tylenol as needed as well. The patient is to call the office if the pain is worsening or does not improve. Pressure ulcer left 4th toe-refer to Dr Glynn for evaluation 07/18/2016 Appointment: Marcela Oshea WPtel: [phone] [phone] (30 min) Complex 07/18/2016 Patient Education: Patient Medication Summary Completed 07/18/2016 Patient Education: Obesity Completed 07/18/2016 Care Plan: Referral Order SNOMED-CT : [id number] Cancelled 07/18/2016 Visit Plan: Diabetes Mellitus - [...] glucose control. 06/22/2016 Appointment: Marcela Oshea WPtel: [phone] [phone] (30 min) Complex 06/22/2016 Patient Education: [...] CBC today 05/23/2016 Appointment: Marcela Oshea WPtel: [phone] [phone] (30 min) Complex 05/23/2016 Patient Education: [...] of plan. 05/15/2016 Appointment: Marcela Oshea WPtel: [phone] [phone] (15 min) Moderate 05/15/2016 Patient Education: [...] Sun Glynn Referral Appointment Requested Instructions Comment START CHECKING BLOOD SUGARS . Diabetes Mellitus [...] readings are starting to become less controlled. Mchmpipeo-jslwyqxs-hufchfmx to monitor Generalized weakness-refer for PT-patient refuses today but will consider . Diabetes Mellitus - controlled - per [...] do not improve or if they worsen. STAY OFF LOSARTAN AND CHOLESTEROL MEDICATION FOR NOW . DM- continue same medications-monitor blood sugars routinely as directed -rx for new glucometer and test strips provided Bipolar-currently depressed-patient start on vraylar-follow up in 2 weeks, sooner if needed. Patient and verbalied understanding of plan. Hypotension-stay off losartan . DM-weight loss-not checking blood sugars-patient sent for labs today HTN-low zahiq-mwiiihr-tnhkk labs Callus of foot and fissue of heel-refer to Dr Glynn for evaluation Esophageal Reflux - the patient has been counseled against excessive intake of caffeine, spicy foods, peppermint, and cinnamon - all of which can exacerbate esophageal reflux. The patient is to take medications as prescribed and call the office if the symptoms are not improving. . Bilateral hip rawz-yzcahpoz-oiuwbnm IM injection administered today for c/o continued myalgia/arthralgia. Patient to start taking Meloxicam 15mg PO daily. Advised to return to clinic if symptoms do not improve. continue oral antibiotic start using topical antibiotic ointment to scabbed areas and cover with dressing follow up , sooner if needed refer to wound care mri left foot due to increased pain -concern for fracture from injury . Right foot isrx-bwcyvyhw-jdzlf washer dropped on foot-xray negative but pain [...] for fracture from injury . Right foot bpem-yhyaceko-swbqs washer dropped on foot-xray negative but pain continues to increase-recommend MRI of foot for further evaluation-refer to wound care for lesions on right foot, patient has diabetes and history of osteomyelitis-culture obtained today-continue oral abx-follow up in the office on , sooner if needed . Poison Jana - pt is to use topical treatments as directed. Pt is cleanse clothing in hot water with soap, and call if symptoms do not improve or if they worsen. Kenalog injection today in the office-monitor blood sugars closely over the next 2-3 days-use calamine as directed-call if you want blue minesh called into [facility] [facility]. REPEAT LABS BEFORE YOUR NEXT APPOINTMENT IN [...] extra moisture. Patient verbalized understanding of plan. REPEAT CBC Toujeo 10 units daily . [...] glucose control. Elevated Hgb-check CBC today . Right foot pain-MRI shows foreign body-appt with Dr Grewal for evaluation on Sunday. . Hypertension - well controlled - continue with current medications, continue with no added salt diet. Pt has been encouraged to exercise daily. The pt has been advised to call the office if there are any acute concerns about change in blood pressure readings at home. Cough-resolved STOP MELOXICAM CONTINUE LYRICA 50 UNITS TOUJEO [...] allow for greater blood glucose control. Joint fzay-qdqvpgxc-aiwingq-symptoms have improved -stop meloxicam due to upset stomach-call if symptoms return . Diabetes Mellitus - controlled - per [...] may then decrease dose as swelling improves. continue oral antibiotic start using topical antibiotic ointment to scabbed areas and cover with dressing follow up , sooner if needed refer to wound care mri left foot due to increased pain -concern for fracture from injury . Right foot mgbl-phvovkcm-pheic washer dropped on foot-xray negative but pain [...] pustular drainage, or any other acute concerns. xray lumbar spine flexeril as needed voltaren gel ulcer left 4th toe-refer to [employer] . Low back pain- history of spinal fusion-patient for xray lumbar spine-RX sent to [facility] pharmacy and instructed on use-topical voltaren samples provided and instructed on use. Ok to use tylenol as needed as well. The patient is to call the office if the pain is worsening or does not improve. Pressure ulcer left 4th toe-refer to Dr Glynn for evaluation INCREASE FLUIDS-RECOMMEND G2 GATORADE-CHECK LABS TODAY IF [...] any worse. Patient verbalized understanding of plan. stop the [...] - stop Vraylar and start on cymbalta culture of right foot strep swab prilosec over the counter twice daily keflex 500mg three times daily x 7 days . Cellulitis - culture of wound today-start abx and directed, call for acute change in symptoms, worsening redness, warmth, discharge. Sore throat-strep swab-chloraseptic spray-add prilosec twice daily for acid reflux symptoms GERD-low spice, low fat diet-start prilosec . Shingles - Herpes Zoster - acute [...] the pt is to be considered contagious. culture of right foot strep swab prilosec over the counter twice daily keflex 500mg three times daily x 7 days . Cellulitis - culture of wound today-start abx and directed, call for acute change in symptoms, worsening redness, warmth, discharge. Sore throat-strep swab-chloraseptic spray-add prilosec twice daily for acid reflux symptoms GERD-low spice, low fat diet-start prilosec . Acute confusion-uncontrolled diabetes-chronically noncompliant with treatment [...] office if the symptoms are not improving. doxycycline 100mg twice daily follow up in 2 weeks, sooner if needed . Hypertension - well controlled - continue with current medications, continue with no added salt diet. Pt has been encouraged to exercise daily. The pt has been advised to call the office if there are any acute concerns about change in blood pressure readings at home. Diabetes Mellitus -check labs Javermun-nrzbvkm-flqq bite-rx for doxycycline-follow up in 2 weeks . Cellulitis - continue with oral antibiotics as previously directed, return to clinic as previously directed, call for acute change in symptoms, worsening redness, warmth, discharge. TOUJEO 20 UNITS DAILY MONITOR BLOOD SUGARS [...] been appropriately prescribed for this patient. . Fatigue, malaise, joint pains - pt [...]
--- OUTSIDE RECORDS SUMMARY | 2018-10-20 11:24 | XMS REPORT | CCD ---
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 Name Role Phone PP Unavailable CCM Unavailable Summary Purpose Interface Exchange Insurance Providers Payer name Policy type / Coverage type Covered democrat ID Effective Begin Date Effective End Date Blue Cross Blue Shield [facility] Blue Cross/Blue Shield [id number] Unknown Family history Father Diagnosis Age At Onset Hyperlipidemia Unknown Heart Attack Unknown Mother Diagnosis Age At Onset Hypertension Unknown Social History Social History Element Codes Description Effective Dates Marital status Unknown Mignon 01/20/2016 Number of children Unknown 4 01/20/2016 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/[address]: 942572446 Never smoker 01/20/[address]: 034541105 Never drinks alcohol 01/20/2016 Allergies, Adverse Reactions, [...] U-100 Insulin aspart 100 unit/mL subcutaneous RxNorm: 0313919 10 Unit(s) SQ AC 06/18/20182017 Active this is an update on his medication Lasix 20 mg tablet RxNorm: 505697 1 Tablet(s) PO BIW 201710/09/2018 Active atorvastatin 80 mg tablet RxNorm: 878391 1 Tablet(s) PO QHS 04/201812/06/2018 Active clonazepam 1 mg tablet RxNorm: 202032 2 Tablet(s) PO HS 201706/04/2019 Active Lyrica 50 mg capsule RxNorm: 098334 Capsule(s) PO daily 2017 No Stop Date Active clonazepam 1 mg tablet RxNorm: 010771 2 Tablet(s) PO HS as needed 06/10/2018 06/09/2018 Inactive Lasix 20 mg tablet RxNorm: 911187 1 Tablet(s) PO TIW 201706/11/2018 Inactive Toujeo SoloStar U-300 Insulin 300 unit/mL (1.5 mL) subcutaneous pen RxNorm: 3974962 50 Unit(s) SQ daily 05/07/2018 No Stop Date Active meloxicam 15 mg tablet RxNorm: 287595 15 Milligram(s) PO daily 05/02/2018 05/12/2018 Inactive ketorolac 30 mg/mL injection solution RxNorm: 896833 2 Milliliter(s) Inj 05/02/2018 05/02/2018 Inactive Toujeo SoloStar U-300 Insulin 300 unit/mL (1.5 mL) subcutaneous pen RxNorm: 6438250 45 Unit(s) daily 04/29/2018 Inactive clonazepam 1 mg tablet RxNorm: 519102 1 Tablet(s) PO Q8 as needed 04/29/2018 06/09/2018 Inactive doxycycline hyclate 100 mg tablet RxNorm: 4759323 1 Tablet(s) PO BID 04/29/2018 05/12/2018 Inactive Cymbalta 30 mg capsule,delayed release RxNorm: 140925 1 Capsule(s) PO QAM 03/13/2018 10/08/2018 Active Lexapro 10 mg tablet RxNorm: 862353 1 Tablet(s) PO QPM 201703/03/2018 Inactive Toujeo SoloStar U-300 Insulin 300 unit/mL (1.5 mL) subcutaneous pen RxNorm: 5229874 20 Unit(s) daily 02/28/2018 Inactive Protonix 40 mg tablet,delayed release RxNorm: 660738 1 Tablet(s) PO daily 01/29/2018 06/09/2018 Inactive clonazepam 1 mg tablet RxNorm: 340356 1 Tablet(s) PO Q8 as needed 12/12/2017 03/10/2018 Inactive Tamiflu 75 mg capsule RxNorm: 507359 1 Capsule(s) PO BID 201712/03/2017 Inactive doxycycline hyclate 100 mg capsule RxNorm: 9442752 1 Capsule(s) PO BID 09/07/2017 09/20/2017 Inactive doxycycline hyclate 100 mg capsule RxNorm: 9656973 1 Capsule(s) PO BID 08/27/2017 09/06/2017 Inactive prednisone 20 mg tablet RxNorm: 463978 2 Tablet(s) PO daily 08/31/2017 Inactive clopidogrel 75 mg tablet RxNorm: 931729 1 Tablet(s) PO daily 06/09/2018 Inactive atorvastatin 40 mg tablet RxNorm: 975701 1 Tablet(s) PO QHS 02/27/2018 Inactive losartan 25 mg tablet RxNorm: 794126 TAKE ONE TABLET BY MOUTH DAILY 08/22/2017 06/09/2018 Inactive Toujeo SoloStar 300 unit/mL (1.5 mL) subcutaneous insulin pen RxNorm: 7371146 45 Unit(s) daily 08/17/2017 08/20/2017 Inactive mupirocin 2 % topical ointment RxNorm: 557665 1 Application TOP TID to the lesions on chest 08/16/2017 08/25/2017 Inactive Toujeo SoloStar 300 unit/mL (1.5 mL) subcutaneous insulin pen RxNorm: 0613118 40 Unit(s) daily 08/16/2017 08/16/2017 Inactive valacyclovir 1 gram tablet RxNorm: 691826 1 Tablet(s) PO TID 08/01/2017 Inactive clonazepam 1 mg tablet RxNorm: 299377 1 Tablet(s) PO Q8 as needed 07/03/2017 09/30/2017 Inactive Levaquin 500 mg tablet RxNorm: 874393 1 Tablet(s) PO daily 06/25/2017 Inactive Levaquin 500 mg tablet RxNorm: 537567 1 Tablet(s) PO daily 06/21/2017 Inactive losartan 25 mg tablet RxNorm: 504815 1 Tablet(s) PO daily 201608/16/2017 Inactive nystatin 100,000 unit/mL oral suspension RxNorm: 548157 5 Milliliter(s) PO QID Swish et swallow 06/18/2017 06/17/2017 Inactive nystatin 100,000 unit/mL oral suspension RxNorm: 482154 5 Milliliter(s) PO QID Swish et swallow 06/18/2017 06/27/2017 Inactive Cipro 500 mg tablet RxNorm: 845329 1 Tablet(s) PO BID 201606/18/2017 Inactive Cipro 500 mg tablet RxNorm: 726871 1 Tablet(s) PO BID 201606/11/2017 Inactive Toujeo SoloStar 300 unit/mL (1.5 mL) subcutaneous insulin pen RxNorm: 8424952 INJECT 10 UNITS UNDER THE SKIN DAILY 06/12/2017 08/15/2017 Inactive Keflex 500 mg capsule RxNorm: 209123 1 Capsule(s) PO TID 201606/13/2017 Inactive doxycycline hyclate 100 mg capsule RxNorm: 0951735 1 Capsule(s) PO BID 05/17/2017 05/21/2017 Inactive doxycycline hyclate 100 mg capsule RxNorm: 4560755 1 Capsule(s) PO BID 05/11/2017 05/16/2017 Inactive losartan 25 mg tablet RxNorm: 994040 1 Tablet(s) PO daily 201606/17/2017 Inactive atorvastatin 40 mg tablet RxNorm: 323879 1 Tablet(s) PO daily 03/01/2017 08/23/2017 Inactive clopidogrel 75 mg tablet RxNorm: 624534 1 Tablet(s) PO daily 08/23/2017 Inactive Flonase Allergy Relief 50 mcg/actuation nasal spray, suspension RxNorm: 0936151 2 [place] NASAL daily 02/16/20172016 Inactive Augmentin 875 mg-125 mg tablet RxNorm: 209959 1 Tablet(s) PO BID 02/16/2017 02/22/2017 Inactive GET PROBIOTIC TO TAKE WHILE ON ABX Tamiflu 75 mg capsule RxNorm: 779847 1 Capsule(s) PO BID 201602/20/2017 Inactive ceftriaxone 500 mg solution for injection RxNorm: 1164400 1 Milliliter(s) Inj 02/16/2017 02/16/2017 Inactive Kenalog 40 mg/mL suspension for injection RxNorm: 4412991 1 Milliliter(s) Inj 02/16/2017 02/16/2017 Inactive Toujeo SoloStar 300 unit/mL (1.5 mL) subcutaneous insulin pen RxNorm: 4704226 25 Unit(s) SQ QAM 02/12/2017 06/10/2017 Inactive Toujeo SoloStar 300 unit/mL (1.5 mL) subcutaneous insulin pen RxNorm: 1224197 10 Unit(s) SQ QAM 02/05/2017 02/11/2017 Inactive lisinopril 10 mg tablet RxNorm: 625738 1 Tablet(s) PO daily 02/28/2017 Inactive atorvastatin 40 mg tablet RxNorm: 169576 1 Tablet(s) PO daily 02/01/2017 02/28/2017 Inactive doxycycline hyclate 100 mg capsule RxNorm: 1863011 1 Capsule(s) PO BID 02/01/2017 02/10/2017 Inactive clonazepam 1 mg tablet RxNorm: 494722 1 Tablet(s) PO Q8 as needed 10/09/2016 01/05/2017 Inactive ceftriaxone 1 gram solution for injection RxNorm: 4986776 Inj 10/06/2016 10/06/2016 Inactive cyclobenzaprine 10 mg tablet RxNorm: 949254 1/2-1 Tablet(s) PO TID PRN 07/18/2016 01/28/2017 Inactive clonazepam 1 mg tablet RxNorm: 690422 1 Tablet(s) PO Q8 as needed 05/31/2016 05/29/2016 Inactive clonazepam 1 mg tablet RxNorm: 731234 1 Tablet(s) PO Q8 as needed 05/31/2016 08/28/2016 Inactive Toujeo SoloStar 300 unit/mL (1.5 mL) subcutaneous insulin pen RxNorm: 5769048 10 Unit(s) SQ daily 05/23/2016 01/28/2017 Inactive Crestor 10 mg tablet RxNorm: 413493 1 Tablet(s) PO QHS 201501/28/2017 Inactive Crestor 10 mg tablet RxNorm: 922467 1 Tablet(s) PO QHS 201505/18/2016 Inactive clonazepam 1 mg tablet RxNorm: 616241 1 Tablet(s) PO Q8 as needed 04/25/2016 05/30/2016 Inactive prednisone 20 mg tablet RxNorm: 192719 3 Tablet(s) PO daily 06/201602/10/2016 Inactive prednisone 20 mg tablet RxNorm: 566665 3 Tablet(s) PO daily 06/201605/14/2016 Inactive Kenalog 40 mg/mL suspension for injection RxNorm: 3840096 Milliliter(s) Inj 01/20/2016 01/20/2016 Inactive aspirin 81 mg tablet,delayed release RxNorm: 176094 1 Tablet(s) PO daily No Start Date Active Brilinta 90 mg tablet RxNorm: 8700119 1 Tablet(s) PO BID No Start Date Active Coreg 6.25 mg tablet RxNorm: 315819 1 Tablet(s) PO BID No Start Date Active acetaminophen 500 mg tablet RxNorm: 118947 1-2 Tablet(s) PO as needed No Start Date Active clopidogrel 75 mg tablet RxNorm: 837531 1 Tablet(s) PO daily No Start Date 02/28/2017 Inactive Novolog Flexpen U-100 Insulin aspart 100 unit/mL subcutaneous RxNorm: 8389833 5 units with breakfast lunch and 10 supper Unit(s) SQ No Start Date 06/17/2018 Inactive clonazepam 1 mg tablet RxNorm: 817509 1 Tablet(s) PO QHS No Start Date 04/24/2016 Inactive acyclovir 400 mg tablet RxNorm: 486903 2 Tablet(s) PO 5x daily No Start Date 02/28/2017 Inactive Lyrica 50 mg capsule RxNorm: 106582 Capsule(s) PO BID No Start Date 06/09/2018 Inactive Vraylar 3 mg capsule RxNorm: 1872451 1 Capsule(s) PO daily No Start Date 03/12/2018 Inactive Medication Administered Medication Codes Instructions Start Date Status ketorolac 30 mg/mL injection solution RxNorm: 481138 2Milliliter 05/02/2018 No longer Active ceftriaxone 500 mg solution for injection RxNorm: 4301299 1Milliliter 02/16/2017 No longer Active Kenalog 40 mg/mL suspension for injection RxNorm: 9444641 1Milliliter 02/16/2017 No longer Active ceftriaxone 1 gram solution for injection RxNorm: 0871446 10/06/2016 No longer Active Kenalog 40 mg/mL suspension for injection RxNorm: 5574256 Milliliter 01/20/2016 No longer Active Immunizations Vaccine [...] Observation Code Item Item Code Result Date CBC 6844796 WBC 6.4 10e9/L 05/02/2018 CBC 7086388 RBC 5.60 10e12/L 05/02/2018 CBC 4805845 HEMOGLOBIN 17.0 g/dL 05/02/2018 CBC 3242313 HEMATOCRIT 48.0 % 05/02/2018 CBC 9415921 MCV 85.7 fL 05/02/2018 CBC 3905975 MCH 30.4 pg 05/02/2018 CBC 8442072 MCHC 35.4 g/dL 05/02/2018 CBC 4414278 PLATELET COUNT 166 10e9/L 05/02/2018 CBC 1653660 Mean Plt Volume 11.6 fL 05/02/2018 CBC 5323303 Neut Auto 48.6 % 05/02/2018 CBC 3810767 Lymph Auto 41.7 % 05/02/2018 CBC 0895765 Saunders Auto 8.1 % 05/02/2018 CBC 7791354 RDW 13.1 % 05/02/2018 CBC 6790242 Eos Auto 1.1 % 05/02/2018 CBC 7841526 Baso Auto 0.5 % 05/02/2018 CBC 8593251 Neutrophil Abs 3.11 10e9/L 05/02/2018 CBC 0050812 Lymphocyte Abs 2.67 10e9/L 05/02/2018 CBC 1758881 Monocyte Abs 0.52 10e9/L 05/02/2018 CBC 2606680 Eosinophil Abs 0.07 10e9/L 05/02/2018 CBC 0387540 RDW-SD 40.0 fL 05/02/2018 CBC 7971679 Basophil Abs 0.03 10e9/L 05/02/2018 CHEM 14 3386848 AST 17 U/L 05/02/2018 CHEM 14 3226826 ALT 17 U/L 05/02/2018 CHEM 14 0882208 BUN 17 mg/dL 05/02/2018 CHEM 14 2071286 ALBUMIN 4.0 g/dL 05/02/2018 CHEM 14 3610515 CHLORIDE 97 mmol/L 05/02/2018 CHEM 14 6478490 Bili Total 0.9 mg/dL 05/02/2018 CHEM 14 7531273 ALK PHOS 67 U/L 05/02/2018 CHEM 14 5173297 SODIUM 135 mmol/L 05/02/2018 CHEM 14 9088803 CREATININE 1.18 mg/dL 05/02/2018 CHEM 14 2738894 CALCIUM 9.4 mg/dL 05/02/2018 CHEM 14 5403420 POTASSIUM 4.4 mmol/L 05/02/2018 CHEM 14 7273760 TOTAL PROTEIN 6.9 g/dL 05/02/2018 CHEM 14 7263702 GLUCOSE 316 mg/dL 05/02/2018 CHEM 14 5881301 Bicarbonate 29 mmol/L 05/02/2018 CHEM 14 7142375 AGAP 9 mmol/L 05/02/2018 MEAN GLUC 5958495 Calc Mean Gluc 283 mg/dL 05/02/2018 A1C HPLC 0917974 Hgb A1c 10583-4 11.5 % 05/02/2018 GFR CALC 8048325 GFR Non Afr Amr >60 mL/min 05/02/2018 GFR CALC 1928218 GFR Afr Amr >60 mL/min 05/02/2018 JIC Gold 5615598 JIC Gold Complete 02/28/2018 GFR CALC 1800847 GFR Non Afr Amr >60 mL/min 02/28/2018 GFR CALC 7053149 GFR Afr Amr >60 mL/min 02/28/2018 UA W/CII 5534782 UA Urine Appear Normal 02/28/2018 UA W/CII 2200738 UA Protein 1+ 02/28/2018 UA W/CII 6951084 UA Hemoglobin Negative 02/28/2018 UA W/CII 2315112 UA Glucose 4+ 02/28/2018 UA W/CII 1551483 UA Ketones Trace 02/28/2018 UA W/CII 1479382 UA pH 5.5 02/28/2018 UA W/CII 1717002 U Spec [place] 1.015 02/28/2018 UA W/CII 1323929 UA Bilirubin Negative 02/28/2018 UA W/CII 3635940 UA Nitrite NEG 02/28/2018 UA W/CII 4288604 UA Leuk Esteras Negative 02/28/2018 MICR 0658912 UA WBC/hpf 1 02/28/2018 MICR 7298196 UA RBC hpf 2 02/28/2018 MICR 3003962 UA WBC auto 3.8 /uL 02/28/2018 MICR 0956110 UA RBC auto 12.2 /uL 02/28/2018 MICR 8994720 UA SQ EPI auto 2.3 /uL 02/28/2018 MICR 5964957 UA H Cast auto 0.10 /uL 02/28/2018 CBC 8447340 WBC 6.4 10e9/L 02/28/2018 CBC 5896249 RBC 5.51 10e12/L 02/28/2018 CBC 3603245 HEMOGLOBIN 16.7 g/dL 02/28/2018 CBC 6426412 HEMATOCRIT 46.9 % 02/28/2018 CBC 6136340 MCV 85.1 fL 02/28/2018 CBC 2588919 MCH 30.3 pg 02/28/2018 CBC 0519023 MCHC 35.6 g/dL 02/28/2018 CBC 5017581 PLATELET COUNT 173 10e9/L 02/28/2018 CBC 4844714 Mean Plt Volume 11.6 fL 02/28/2018 CBC 6312975 Neut Auto 51.8 % 02/28/2018 CBC 2610167 Lymph Auto 39.9 % 02/28/2018 CBC 4060091 Saunders Auto 7.3 % 02/28/2018 CBC 9985630 Eos Auto 0.8 % 02/28/2018 CBC 6366953 RDW 13.3 % 02/28/2018 CBC 7507347 Baso Auto 0.2 % 02/28/2018 CBC 4935916 Neutrophil Abs 3.32 10e9/L 02/28/2018 CBC 8852103 Lymphocyte Abs 2.55 10e9/L 02/28/2018 CBC 2463839 Monocyte Abs 0.47 10e9/L 02/28/2018 CBC 8503411 Eosinophil Abs 0.05 10e9/L 02/28/2018 CBC 8097143 Basophil Abs 0.01 10e9/L 02/28/2018 CBC 0481594 RDW-SD 40.8 fL 02/28/2018 CHEM 14 3448909 AST 17 U/L 02/28/2018 CHEM 14 4181830 ALT 17 U/L 02/28/2018 CHEM 14 8780208 BUN 20 mg/dL 02/28/2018 CHEM 14 7603594 ALBUMIN 4.1 g/dL 02/28/2018 CHEM 14 8622382 CHLORIDE 97 mmol/L 02/28/2018 CHEM 14 6771290 Bili Total 1.3 mg/dL 02/28/2018 CHEM 14 8052719 ALK PHOS 78 U/L 02/28/2018 CHEM 14 7216092 SODIUM 135 mmol/L 02/28/2018 CHEM 14 0185894 CREATININE 1.09 mg/dL 02/28/2018 CHEM 14 0394542 CALCIUM 9.6 mg/dL 02/28/2018 CHEM 14 7107981 POTASSIUM 3.8 mmol/L 02/28/2018 CHEM 14 9644144 TOTAL PROTEIN 7.3 g/dL 02/28/2018 CHEM 14 7772114 GLUCOSE 349 mg/dL 02/28/2018 CHEM 14 2136857 Bicarbonate 29 mmol/L 02/28/2018 CHEM 14 6256098 AGAP 9 mmol/L 02/28/2018 Fei Mtn Spot'D Fev Igg 520582 RMSF, IGG -TITER IFA <1:64 11/2016 [place] Spotted Fever Igg/Igm 911169 FEI MT SPOTTED FEVER IGM EIA . 09/05/2017 [place] Spotted Fever Igg/Igm 328154 RMSF, IGM 0.17 index 09/05/2017 [place] Spotted Fever Igg/Igm 105062 FEI MT SPOTTED FEVER IGG EIA FLEX . 09/05/2017 [place] Spotted Fever Igg/Igm 893573 RMSF, IGG SCREEN-FLEX Positive 09/05/2017 Ehrlichia Chaffeensis Antibody Igm 541508 EHRLICHIA CHAFFEENSIS IGM < 1:16 09/03/2017 Ehrlichia Chaffeensis Antibody Igg 851806 EHRLICHIA CHAFFEENSIS IGG <1:64 09/03/2017 Lymes Disease Total Antibodies With Western Blot Reflex B. BURGDORFERI, IGG/IGM 0.223 08/30/2017 Lymes Disease Total Antibodies With Western Blot Reflex C-Reactive Protein Qnt Crqnt CRP 0.00 mg/dl 08/27/2017 Sed Rate Ord21 ESR 8 mm/hr 08/27/2017 Comp Metabolic Gyp425 NA 135 mEq/L 08/16/2017 Comp Metabolic Nde640 K 4.1 mEq/L 08/16/2017 Comp Metabolic Wxw712 CL 98 mEq/L 08/16/2017 Comp Metabolic Znz963 CO2 28.0 mEq/L 08/16/2017 Comp Metabolic Wsa699 ANION GAP 13 08/16/2017 Comp Metabolic Tys903 GLUCOSE 299 mg/dL 08/16/2017 Comp Metabolic Zbn952 Creat 0.9 mg/dL 08/16/2017 Comp Metabolic Eew819 eGFR 90 ml/min/1.73m2 08/16/2017 Comp Metabolic Aca856 BUN 20 mg/dL 08/16/2017 Comp Metabolic Fdg682 B/C Ratio 21.5 Ratio 08/16/2017 Comp Metabolic Eng763 CALCIUM 9.2 mg/dL 08/16/2017 Comp Metabolic Uax490 ALK PHOS 84 U/L 08/16/2017 Comp Metabolic Ddt381 AST(SGOT) 19 U/L 08/16/2017 Comp Metabolic Agr443 ALT(SGPT) 24 U/L 08/16/2017 Comp Metabolic Ydp013 BILI T 1.1 mg/dL 08/16/2017 Comp Metabolic Paj489 ALBUMIN 4.2 g/dL 08/16/2017 Comp Metabolic Ycf178 TPRO 7.2 g/dL 08/16/2017 Comp Metabolic Smq372 GLOB 3.0 g/dL 08/16/2017 Comp Metabolic Pqp003 A/G Ratio 1.4 Ratio 08/16/2017 Comp Metabolic Hmr697 Osmo 284 mOsmo 08/16/2017 %Hba1C Rsf132 % HbA1c 12817-9 12.5 % 08/16/2017 %Hba1C Pda870 Gluc Ave 312 mg/dL 08/16/2017 Urine Culture Ucult Complete NO Growth Day 2 06/23/2017 Urine Culture Ucult Preliminary NO Growth Day 1 06/23/2017 C RAP A SC [id number] Strep A Negative 06/08/2017 %Hba1C Ufu035 % HbA1c 53754-3 9.5 % 05/04/2017 %Hba1C Uyf880 Gluc Ave 226 mg/dL 05/04/2017 Tsh Ord6 [...] 89.9 fl 05/04/2017 Cbc With Differential Ord2 Saunders% 8.5 % 05/04/2017 Cbc With Differential Ord2 [...] 2.48 K/ul 05/04/2017 Cbc With Differential Ord2 Saunders ABS# 0.5 K/ul 05/04/2017 Cbc With Differential Ord2 Eos ABS# 0.1 K/ul 05/04/2017 Cbc With Differential Ord2 Baso ABS# 0.0 K/ul 05/04/2017 Comp Metabolic Xyd161 NA 135 mEq/L 05/04/2017 Comp Metabolic Wqr261 K 4.2 mEq/L 05/04/2017 Comp Metabolic Fqp279 CL 99 mEq/L 05/04/2017 Comp Metabolic Gky255 CO2 26.0 mEq/L 05/04/2017 Comp Metabolic Yok674 ANION GAP 14 05/04/2017 Comp Metabolic Hew183 GLUCOSE 277 mg/dL 05/04/2017 Comp Metabolic Ayw022 Creat 0.9 mg/dL 05/04/2017 Comp Metabolic Voa442 eGFR 96 ml/min/1.73m2 05/04/2017 Comp Metabolic Mtb637 BUN 23 mg/dL 05/04/2017 Comp Metabolic Fzb412 B/C Ratio 26.1 Ratio 05/04/2017 Comp Metabolic Ofc389 CALCIUM 8.9 mg/dL 05/04/2017 Comp Metabolic Ion586 ALK PHOS 81 U/L 05/04/2017 Comp Metabolic Lmh209 AST(SGOT) 21 U/L 05/04/2017 Comp Metabolic Aed476 ALT(SGPT) 27 U/L 05/04/2017 Comp Metabolic Jsx455 BILI T 1.2 mg/dL 05/04/2017 Comp Metabolic Inx056 ALBUMIN 4.0 g/dL 05/04/2017 Comp Metabolic Zzl993 TPRO 6.7 g/dL 05/04/2017 Comp Metabolic Efo555 GLOB 2.7 g/dL 05/04/2017 Comp Metabolic Wos232 A/G Ratio 1.5 Ratio 05/04/2017 Comp Metabolic Upk632 Osmo 284 mOsmo 05/04/2017 C A/B FLU 1388271 Influenza A Scr Negative 02/16/2017 C A/B FLU 4818427 Influenza B Scr Positive 02/16/2017 Cbc With [...] 39.7 % 05/23/2016 Cbc With Differential Ord2 Saunders% 8.8 % 05/23/2016 Cbc With Differential Ord2 [...] 2.07 K/ul 05/23/2016 Cbc With Differential Ord2 Saunders ABS# 0.5 K/ul 05/23/2016 Cbc With Differential Ord2 Eos ABS# 0.1 K/ul 05/23/2016 Cbc With Differential Ord2 Baso ABS# 0.0 K/ul 05/23/2016 Lipid Ord30 CHOL 397 mg/dL 05/17/2016 Lipid Ord30 HDL 48.0 mg/dl 05/17/2016 Lipid Ord30 TRIG 578 mg/dL 05/17/2016 Lipid Ord30 LDL Unable to calculate Due to elevated triglycerides mg/dL 05/17/2016 Lipid Ord30 C/HDL 8.3 Ratio 05/17/2016 %Hba1C Lpj141 % HbA1c 89886-1 12.4 % 05/16/2016 %Hba1C Eor781 Gluc Ave 309 mg/dL 05/16/2016 Cbc With [...] 87.4 fl 05/15/2016 Cbc With Differential Ord2 Saunders% 7.8 % 05/15/2016 Cbc With Differential Ord2 [...] 2.04 K/ul 05/15/2016 Cbc With Differential Ord2 Saunders ABS# 0.5 K/ul 05/15/2016 Cbc With Differential Ord2 Eos ABS# 0.1 K/ul 05/15/2016 Cbc With Differential Ord2 Baso ABS# 0.0 K/ul 05/15/2016 Tsh Ord6 hTSH II 1.70 uIU/mL 05/15/2016 Comp Metabolic Jza199 NA 135 mEq/L 05/15/2016 Comp Metabolic Pni931 K 3.9 mEq/L 05/15/2016 Comp Metabolic Onj802 CL 96 mEq/L 05/15/2016 Comp Metabolic Gvu877 CO2 27.0 mEq/L 05/15/2016 Comp Metabolic Xsw629 ANION GAP 16 05/15/2016 Comp Metabolic Yzp059 GLUCOSE 183 mg/dL 05/15/2016 Comp Metabolic Ybn057 Creat 1.1 mg/dL 05/15/2016 Comp Metabolic Loy433 eGFR 71 ml/min/1.73m2 05/15/2016 Comp Metabolic Lbi326 BUN 17 mg/dL 05/15/2016 Comp Metabolic Hlp776 B/C Ratio 14.9 Ratio 05/15/2016 Comp Metabolic Iwe399 CALCIUM 9.6 mg/dL 05/15/2016 Comp Metabolic Pfj474 ALK PHOS 100 U/L 05/15/2016 Comp Metabolic Jxy338 AST(SGOT) 20 U/L 05/15/2016 Comp Metabolic Yls293 ALT(SGPT) 20 U/L 05/15/2016 Comp Metabolic Cae973 BILI T 1.3 mg/dL 05/15/2016 Comp Metabolic Vgj865 ALBUMIN 4.6 g/dL 05/15/2016 Comp Metabolic Vxn990 TPRO 8.1 g/dL 05/15/2016 Comp Metabolic Rqg964 GLOB 3.5 g/dL 05/15/2016 Comp Metabolic Tld782 A/G Ratio 1.3 Ratio 05/15/2016 Comp Metabolic Rvj829 Osmo 276 mOsmo 05/15/2016 Review of Systems [...] of skin Location: face 05/04/2017 patch left hoahaoism Full Exam - General 1994 Constitutional general [...] NO PRSV 4 MENA 3 YRS+ CPT-4: 38631 08/16/2017 IMMUNIZATION ADMIN CPT -4: 61939 08/16/2017 URINALYSIS NONAUTO W/O SCOPE CPT-4: 52579 06/21/2017 TRIAMCINOLONE ACET INJ NOS CPT-4: J3301 05/04/2017 THER/PROPH/DIAG INJ SC/IM CPT-4: 31456 05/04/2017 TRIAMCINOLONE ACET INJ NOS CPT-4: J3301 02/16/2017 ROCEPHIN, PER 250 MG CPT-4: J0696 02/16/2017 ROCEPHIN, PER 250 MG CPT-4: J0696 10/06/2016 URINALYSIS NONAUTO W/O SCOPE CPT-4: 72753 07/18/2016 TRIAMCINOLONE ACET INJ NOS CPT-4: J3301 01/20/2016 Vital Signs Date Vital 06/18/2018 Blood Pressure 1: 138/82 Code : 8480-6 BMI: 31.8 Code : 68721-3 Heart Rate 1 : 82 bpm Height: 6'2" SpO2: 97% Weight: 248 lbs 06/04/2018 Blood Pressure 1: 128/84 Code : 8480-6 BMI: 33.9 Code : 35583-8 Heart Rate 1 : 86 bpm Height: 6'2" SpO2: 95% Weight: 264 lbs 05/13/2018 Blood Pressure 1: 130/80 Code : 8480-6 BMI: 31.1 Code : 01358-6 Heart Rate 1 : 100 bpm Height: 6'2" SpO2: 94% Weight: 242 lbs 05/02/2018 Blood Pressure 1: 134/84 Code : 8480-6 BMI: 31.2 Code : 14037-8 Heart Rate 1 : 93 bpm Height: 6'2" SpO2: 98% Weight: 243 lbs 04/29/2018 Blood Pressure 1: 142/88 Code : 8480-6 BMI: 31.6 Code : 94541-8 Heart Rate 1 : 96 bpm Height: 6'2" SpO2: 96% Temperature: 36.7 (C) / 98.1 (F) Weight: 246 lbs 03/13/2018 Blood Pressure 1: 120/76 Code : 8480-6 BMI: 30.9 Code : 33773-3 Heart Rate 1 : 112 bpm Height: 6'2" SpO2: 97% Weight: 241 lbs 03/07/2018 Blood Pressure 1: 108/78 Code : 8480-6 BMI: 30.0 Code : 39904-2 Heart Rate 1 : 87 bpm Height: 6'2" SpO2: 98% Weight: 234 lbs 02/28/2018 Blood Pressure 1: 106/74 Code : 8480-6 BMI: 30.0 Code : 81821-3 Heart Rate 1 : 101 bpm Height: 6'2" SpO2: 98% Temperature: 36.4 (C) / 97.5 (F) Weight: 234 lbs 02/13/2018 Blood Pressure 1: 110/78 Code : 8480-6 BMI: 30.0 Code : 89532-8 Heart Rate 1 : 106 bpm Height: 6'2" SpO2: 98% Weight: 234 lbs 01/29/2018 Blood Pressure 1: 106/68 Code : 8480-6 BMI: 30.0 Code : 52166-7 Heart Rate 1 : 108 bpm Height: 6'2" SpO2: 98% Weight: 234 lbs 08/27/2017 Blood Pressure 1: 134/76 Code : 8480-6 Heart Rate 1: 98 bpm Height: SpO2: 97% Weight: 08/16/2017 Blood Pressure 1: 128/80 Code : 8480-6 BMI: 32.0 Code : 67226-4 Heart Rate 1 : 94 bpm Height: [...] Code : 8480-6 BMI: 31.8 Code : 29565-0 Heart Rate 1 : 102 bpm Height: [...] Code : 8480-6 BMI: 31.8 Code : 71320-7 Heart Rate 1 : 85 bpm Height: 6'2" SpO2: 96% Temperature: 36.6 (C) / 97.9 (F) Weight: 248 lbs 02/12/2017 Blood Pressure 1: 126/76 Code : 8480-6 BMI: 31.8 Code : 22222-9 Heart Rate 1 : 106 bpm Height: 6'2" SpO2: 91% Weight: 248 lbs 02/05/2017 Blood Pressure 1: 146/86 Code : 8480-6 BMI: 31.9 Code : 51911-3 Heart Rate 1 : 98 bpm Height: 6'2" SpO2: 87% Temperature: 36.7 (C) / 98.0 (F) Weight: 248 lbs 8 oz 01/29/2017 Blood Pressure 1: 132/84 Code : 8480-6 BMI: 31.8 Code : 66241-3 Heart Rate 1 : 83 bpm Height: 6'2" SpO2: 97% Weight: 248 lbs 10/13/2016 Blood Pressure 1: 128/72 Code : 8480-6 Heart Rate 1: 86 bpm SpO2: 94% 10/09/2016 Blood Pressure 1: 128/68 Code : 8480-6 Heart Rate 1: 136 bpm SpO2: 94% Temperature: 36.8 (C) / 98.2 (F) 10/06/2016 Blood Pressure 1: 140/80 Code : 8480-6 BMI: 32.1 Code : 89600-2 Heart Rate 1 : 94 bpm Height: 6'2" SpO2: 95% Weight: 250 lbs 07/18/2016 Blood Pressure 1: 128/86 Code : 8480-6 BMI: 32.1 Code : 44535-3 Heart Rate 1 : 89 bpm Height: 6'2" SpO2: 96% Weight: 250 lbs 06/22/2016 Blood Pressure 1: 118/70 Code : 8480-6 BMI: 32.1 Code : 55171-0 Heart Rate 1 : 70 bpm Height: 6'2" SpO2: 97% Weight: 250 lbs 05/23/2016 Blood Pressure 1: 128/80 Code : 8480-6 BMI: 32.1 Code : 36403-7 Heart Rate 1 : 76 bpm Height: 6'2" SpO2: 98% Weight: 250 lbs 05/15/2016 Blood Pressure 1: 110/90 Code : 8480-6 BMI: 31.3 Code : 26195-3 Heart Rate 1 : 111 bpm Height: 6'2" SpO2: 97% Temperature: 36.6 (C) / 97.8 (F) Weight: 244 lbs 01/20/2016 Blood Pressure 1: 128/76 Code : 8480-6 BMI: 33.0 Code : 49611-7 Heart Rate 1 : 103 bpm Height: [...] data Encounters Encounter Performer Location Codes Date ([id number]) [id number] EST. PATIENT, LEVEL IV Diagnosis: Type 2 diabetes mellitus with hyperglycemia[ICD10: E11.65] Diagnosis: Essential (primary) hypertension[ICD10: I10] [facility] CPT-4: 11967 06/18/2018 ([id number]) [id number] EST. PATIENT, LEVEL IV Diagnosis: Type 2 diabetes mellitus with hyperglycemia[ICD10: E11.65] Diagnosis: Essential (primary) hypertension[ICD10: I10] Diagnosis: Localized edema[ICD10: R60.0] [facility] CPT- 4: 73680 06/04/2018 ([id number]) 53112 EST. PATIENT, LEVEL III Diagnosis: Type 2 diabetes mellitus with hyperglycemia[ICD10: E11.65] Diagnosis: Myalgia[ICD10: M79.1] Diagnosis: Pain in right hip[ICD10: M25.551] Diagnosis: Pain in left hip[ICD10: M25.552] Marcela Ha MD, [facility] CPT-4: 15348 05/13/2018 ([id number]) [id number] EST. PATIENT, LEVEL III Diagnosis: Myalgia[ICD10: M79.1] Diagnosis: Pain in right hip[ICD10: M25.551] Diagnosis: Pain in left hip[ICD10: M25.552] Marcela Ha MD, [facility] CPT-4: 66479 05/02/2018 ([id number]) 21176 EST. PATIENT, LEVEL IV Diagnosis: Essential (primary) hypertension[ICD10: I10] Diagnosis: Type 2 diabetes mellitus with hyperglycemia[ICD10: E11.65] Diagnosis: Major depressive disorder, single episode, moderate[ICD10: F32.1] Diagnosis: Myalgia[ICD10: M79.1] Marcela Ha MD, [facility] CPT-4: 56899 04/29/2018 ([id number]) 04620 EST. PATIENT, LEVEL IV Diagnosis: Type 2 diabetes mellitus with hyperglycemia[ICD10: E11.65] Diagnosis: Essential (primary) hypertension[ICD10: I10] Diagnosis: Major depressive disorder, single episode, moderate[ICD10: F32.1] Melida Ha MD, [facility] CPT-4: 94113 03/13/2018 ([id number]) 27086 EST. PATIENT, LEVEL III Diagnosis: Type 2 diabetes mellitus with hyperglycemia[ICD10: E11.65] Diagnosis: Bipolar disorder, current episode depressed, moderate[ICD10: F31.32] Diagnosis: Orthostatic hypotension[ICD10: I95.1] Marcela Ha MD, [facility] CPT-4: 48224 03/07/2018 ([id number]) 52631 EST. PATIENT, LEVEL IV Diagnosis: Type 2 diabetes mellitus with hyperglycemia[ICD10: E11.65] Diagnosis: Major depressive disorder, single episode, moderate[ICD10: F32.1] Diagnosis: Orthostatic hypotension[ICD10: I95.1] Diagnosis: Other fatigue[ICD10: R53.83] Marcela Ha MD, [facility] CPT-4: 16479 02/28/2018 15458 EST. PATIENT, LEVEL IV Diagnosis: Other fatigue[ICD10: R53.83] Diagnosis: Other malaise[ICD10: R53.81] Diagnosis: Gastro-esophageal reflux disease without esophagitis[ICD10: K21.9] Madeline Ha MD, [facility] CPT-4: 49315 02/13/2018 ([id number]) 12834 EST. PATIENT, LEVEL IV Diagnosis: Type 2 diabetes mellitus with foot ulcer[ICD10: E11.621] Diagnosis: Essential (primary) hypertension[ICD10: I10] Diagnosis: Gastro-esophageal reflux disease without esophagitis[ICD10: K21.9] Marcela Ha MD, [facility] CPT-4: 08079 01/29/2018 13705 EST. PATIENT, LEVEL III Diagnosis: Other malaise[ICD10: R53.81] Diagnosis: Other fatigue[ICD10: R53.83] Diagnosis: Pain in right shoulder[ICD10: M25.511] Diagnosis: Pain in left shoulder[ICD10: M25.512] Madeline Ha MD, [facility] CPT-4: 68307 08/27/2017 ([id number]) 54252 EST. PATIENT, LEVEL IV Diagnosis: Essential (primary) hypertension[ICD10: I10] Diagnosis: Type 2 diabetes mellitus with hyperglycemia[ICD10: E11.65] Diagnosis: VACCIN FOR INFLUENZA[ICD10: Z23] Melida Ha MD, [facility] CPT-4: 39765 08/16/2017 66594 EST. PATIENT, LEVEL III Diagnosis: Zoster without complications[ICD10: B02.9] Madeline Ha MD, [facility] CPT-4: 54175 07/26/2017 ([id number]) 78852 EST. PATIENT, LEVEL III Diagnosis: Cellulitis of right lower limb[ICD10: L03.115] Marcela Ha MD, [facility] CPT-4: 31858 07/03/2017 91508 EST. PATIENT, LEVEL II Diagnosis: Laceration without foreign body of left forearm, initial encounter[ ICD10: S51.812A] Marcela Ha MD, [facility] CPT-4: 86978 06/29/2017 ([id number]) 54788 EST. PATIENT, LEVEL III Diagnosis: Cellulitis of right lower limb[ICD10: L03.115] Diagnosis: Type 2 diabetes mellitus with foot ulcer[ICD10: E11.621] Marcela Ha MD , [facility] CPT-4: 90963 06/18/2017 ([id number]) 14141 EST. PATIENT, LEVEL IV Diagnosis: Cellulitis of right lower limb[ICD10: L03.115] Diagnosis: Acute laryngopharyngitis[ICD10: J06.0] Diagnosis: Gastro-esophageal reflux disease without esophagitis[ICD10: K21.9] Marcela Ha MD, [facility] CPT-4: 97500 06/07/2017 ([id number]) 78082 EST. PATIENT, LEVEL III Diagnosis: Type 2 diabetes mellitus with hyperglycemia[ICD10: E11.65] Diagnosis: Insect bite (nonvenomous) of abdominal wall, initial encounter[ICD10 : S30.861A] Marcela Ha MD, [facility] CPT-4: 46503 05/17/2017 ([id number]) 38966 EST. PATIENT, LEVEL III Diagnosis: Allergic contact dermatitis due to plants, except food[ICD10: L23.7] Melida Ha MD, [facility] CPT-4: 78266 05/04/2017 ([id number]) 74749 EST. PATIENT, LEVEL III Diagnosis: Essential (primary) hypertension[ICD10: I10] Marcela Ha MD, [facility] CPT-4: 94520 03/15/2017 ([id number]) 15088 EST. PATIENT, LEVEL III Diagnosis: Cough[ICD10: R05] Diagnosis: Essential (primary) hypertension[ICD10: I10] Marcela Ha MD, [facility] CPT-4: 04185 03/01/2017 ([id number]) 39193 EST. PATIENT, LEVEL III Diagnosis: Cough[ICD10: R05] Diagnosis: Nasal congestion[ICD10: R09.81] Diagnosis: Acute recurrent maxillary sinusitis[ICD10: J01.01] Marcela Ha MD [facility] CPT-4: 72104 02/16/2017 ([id number]) 94285 EST. PATIENT, LEVEL III Diagnosis: Type 2 diabetes mellitus with hyperglycemia[ICD10: E11.65] CONSTANTINO Griffin MD CPT-4: 57949 02/12/2017 ([id number]) 68596 EST. PATIENT, LEVEL IV Diagnosis: Type 2 diabetes mellitus with hyperglycemia[ICD10: E11.65] Diagnosis: Muscle weakness (generalized)[ICD10: M62.81] Diagnosis: Disorientation, unspecified[ICD10: R41.0] Marcela Ha MD [facility] CPT-4: 12148 02/05/2017 ([id number]) Patient admitted to the hospital from clinic (NO CHARGE) Diagnosis: Type 2 diabetes mellitus with hyperglycemia[ICD10: E11.65] Diagnosis: Disorientation, unspecified[ICD10: R41.0] Diagnosis: Muscle weakness (generalized)[ICD10: M62.81] Marcela Ha MD, [facility] CPT-4: 31864E 01/29/2017 ([id number]) Miscellaneous no charge Diagnosis: Cellulitis of right lower limb[ICD10: L03.115] Marcela Ha MD, [facility] CPT-4: 19007 10/13/2016 ([id number]) Miscellaneous no charge Diagnosis: Type 2 diabetes mellitus with foot ulcer[ICD10: E11.621] Diagnosis: Pain in right foot[ICD10: M79.671] Marcela Ha MD [facility] CPT-4: 51826 10/09/2016 58185 EST. PATIENT, LEVEL II Diagnosis: Cellulitis of right lower limb[ICD10: L03.115] [facility] CPT-4: 04341 10/06/2016 ([id number]) 85534 EST. PATIENT, LEVEL IV Diagnosis: Low back pain[ICD10: M54.5] Diagnosis: Other deformities of toe(s) (acquired), left foot[ICD10: M20.5X2] Diagnosis: Type 2 diabetes mellitus with foot ulcer[ICD10: E11.621] Marcela Ha MD , [facility] CPT-4: 78932 07/18/2016 ([id number]) 75703 EST. PATIENT, LEVEL III Diagnosis: Type 2 diabetes mellitus with hyperglycemia[ICD10: E11.65] CONSTANTINO Griffin MD CPT-4: 70750 06/22/2016 ([id number]) 18858 EST. PATIENT, LEVEL IV Diagnosis: Type 2 diabetes mellitus with hyperglycemia[ICD10: E11.65] Diagnosis: Mixed hyperlipidemia[ICD10: E78.2] Diagnosis: Other hemoglobinopathies[ICD10: D58.2] Marcela Ha MD, [facility] CPT-4: 14023 05/23/2016 ([id number]) 02711 EST. PATIENT, LEVEL IV Diagnosis: Type 2 diabetes mellitus with other specified complication[ICD10: E11.69] Diagnosis: Dehydration[ICD10: E86.0] CONSTANTINO Griffin MD CPT-4: 91016 05/15/2016 ([id number]) OFFICE VISIT, NEW - LEVEL 3 Diagnosis: Allergic contact dermatitis due to plants, except food[ICD10: L23.7] Madeline Ha MD, [facility] CPT-4: 27943 01/20/2016 Plan of Care Planned Activity Notes Codes Status Date Patient Education: Patient Medication Summary Completed 06/21/2018 Care Plan: Annabel RICKS [place] Pending 06/21/2018 Visit Plan: Diabetes Mellitus - [...] at home. 06/18/2018 Appointment: Melida Ha WPtel: [address] [place], [place] [address] (15 min) Moderate 06/18/2018 Patient Education: Patient [...] [phone] (15 min) Moderate 06/04/2018 Patient Education: Patient [...] allow for greater blood glucose control. Joint swnw-ndfaaaqu-wbowork- symptoms have improved -stop meloxicam due to upset stomach-call if symptoms return 05/13/2018 Appointment: [phone] [phone] [place] (30 min) Complex 05/13/2018 Patient Education: Patient Medication Summary Completed 05/13/2018 Visit Plan: Bilateral hip iqmm-cwrlwchb-dnjwlng IM injection administered today for c/o continued myalgia/arthralgia. Patient to start taking Meloxicam 15mg PO daily. Advised to return to clinic if symptoms do not improve. 05/02/2018 Appointment: Marcela Osheal: [facility]5 [phone] (30 min) Complex 05/02/2018 Patient Education: [...] readings at home. Diabetes Mellitus -check labs Sfhwcggy-vcpicmc-hsgr bite-rx for doxycycline-follow up in 2 weeks 04/29/2018 Appointment: Marcela Oshea WPtel: [facility]6 [phone] (15 min) Moderate 04/29/2018 Patient Education: Patient Medication Summary Completed 04/29/2018 Appointment: Melida Ha WPtel: [phone] [facility] (15 min) Moderate 04/15/2018 Appointment: Marcela Oshea WPtel: [phone] (30 min) Complex 03/21/2018 Visit Plan: [...] cymbalta 03/13/2018 Appointment: Melida Ha WPtel: [phone] [facility] (30 min) Complex 03/13/2018 Patient Education: Patient Medication Summary Completed 03/13/2018 Visit Plan: DM-continue same medications-monitor blood sugars routinely as directed -rx for new glucometer and test strips provided Bipolar-currently depressed-patient start on vraylar-follow up in 2 weeks, sooner if needed. Patient and verbalied understanding of plan. Hypotension- stay off losartan 03/07/2018 Appointment: Marcela Oshea WPtel: [facility]7 [phone] (30 min) Complex 03/07/2018 Patient Education: Patient Medication Summary Completed 03/07/2018 Appointment: Melida Ha WPtel: [phone] [facility] (15 min) Moderate 03/04/2018 Visit Plan: [...] patient. 02/28/2018 Appointment: Marcela Oshea WPtel: [phone] [phone] (30 min) Complex 02/28/2018 Patient [...] improving. 02/13/2018 Appointment: Madeline Kennedy [facility] [phone] [facility] (15 min) Moderate 02/13/2018 Patient Education: Patient Medication Summary Completed 02/13/2018 Referral: Sun Glynn Patient informed. Referral info faxed. Completed Visit Plan: DM-weight loss-not checking blood sugars- patient sent for labs today HTN-low mdeaa-bprdfqw-dsboy labs Callus of foot and fissue of heel-refer to Dr Glynn for evaluation Esophageal Reflux - the patient has been counseled against excessive intake of caffeine, spicy foods, peppermint , and cinnamon - all of which can exacerbate esophageal reflux. The patient is to take medications as prescribed and call the office if the symptoms are not improving. 01/29/2018 Appointment: Marcela Oshea WPtel: [phone] [place] (30 min) Complex 01/29/2018 Patient Education: Patient Medication Summary Completed 01/29/2018 Care Plan: Comp Metabolic Cancelled 01/29/2018 Care Plan: Cbc With Differential Cancelled 01/29/2018 Care Plan: %Hba1C LOINC : 61204-5 Cancelled 01/29/2018 Care Plan: Referral Order SNOMED-CT : [id number] Cancelled 01/29/2018 Visit Plan: Fatigue, malaise, joint [...] or concerns. 08/27/2017 Appointment: Madeline Kennedy WPtel: [phone] [facility] (15 min) Moderate 08/27/2017 Patient Education: [...] today - 08/16/2017 Appointment: Melida Ha WPtel: [phone] [facility] (30 min) Complex 08/16/2017 Patient Education: Patient Medication Summary Completed 08/16/2017 Patient Education: Obesity Completed 08/16/2017 Appointment: Madeline Kennedy WPtel: [phone] [facility] (30 min) Complex 08/07/2017 Visit [...] considered contagious. 07/26/2017 Appointment: Mad[facility] Kennedy [facility]el[facility] [phone] [facility] (15 min) Moderate 07/26/2017 Patient Education: Patient Medication Summary Completed 07/26/2017 Visit Plan: Cellulitis right foot-cultured today in the office-home health to reapply wound vac--appt with wound care on to evaluate for debridement- 07/03/2017 Appointment: Marcela Oshea WPtel: [address] [place], [place] [phone] (30 min) Complex 07/03/2017 Patient Education: Patient Medication Summary Completed 07/03/2017 Visit Plan: Abrasion left arm - Pt was instructed to keep the wound clean, wash with antibacterial soap, use triple antibiotic ointment, call if redness, pustular drainage, or any other acute concerns. 06/29/2017 Appointment: Marcela Oshea WPtel: [address] [place], [place] [phone] (15 min) Moderate 06/29/2017 Patient Education: Patient [...] of plan. 06/18/2017 Appointment: Marcela Oshea WPtel: [address] [place], [place] [phone] (15 min) Moderate 06/18/2017 Patient Education: Patient [...] diet-start prilosec 06/07/2017 Appointment: Marcel[facility] Oshea [facility]Ptel: [phone] [phone] (10 min) Simple 06/07/2017 Patient Education: Patient [...] doxycycline 05/17/2017 Appointment: Marcela Oshea WPtel: [phone] [phone] (30 min) Complex 05/17/2017 Patient Education: [...] if you want blue rosieo called into [facility]. 05/04/2017 Appointment: Marcela Oshea WPtel: [phone] [phone] (30 min) Complex 05/04/2017 Patient Education: [...] Cough-resolved 03/15/2017 Appointment: Marcela Oshea WPtel: [phone] [phone] (15 min) Moderate 03/15/2017 Patient Education: Patient Medication Summary Completed 03/15/2017 Appointment: Marcela Oshea WPtel: [address] [place], [place] [phone] [place] [address] (30 min) Complex 03/12/2017 Visit Plan: Feng [...] as discussed 02/16/2017 Appointment: Marcela Oshea WPtel: [address] [place], [place] [phone] [place] [address] (15 min) Moderate 02/16/2017 Patient Education: Patient [...] less controlled. 02/12/2017 Appointment: Marcela Oshea WPtel: [address] [place], [place] [phone] (30 min) Complex 02/12/2017 Patient Education: Patient Medication Summary Completed 02/12/2017 Appointment: Marcela Oshea WPtel: [address] [place], [place] [phone] (30 min) Complex 02/06/2017 Visit Plan: Diabetes [...] will consider 02/05/2017 Appointment: Marcela Oshea WPtel: [facility]5 [phone] (30 min) Complex 02/05/2017 Patient Education: Patient Medication Summary Completed 02/05/2017 Appointment: Marcela Oshea WPtel: [address] [place], [place] [phone] (30 min) Complex 01/30/2017 Visit Plan: Acute confusion-uncontrolled diabetes- chronically noncompliant with treatment and stopped his insulin several months ago-r/o stroke vs DKA-Dr Ha in to evaluate patient-plan to admit for further work up and treatment-patient's called and she transported him to the hospital 01/29/2017 Appointment: Marcela Oshea WPtel: [facility]4 [phone] (30 min) Complex 01/29/2017 Patient Education: Patient Medication Summary Completed 01/29/2017 Patient Education: Obesity Completed 01/29/2017 Visit Plan: Right foot pain-MRI shows foreign body-appt with Dr Grewal for evaluation on Sunday. 10/13/2016 Appointment: Marcela Oshea WPtel: [address] [place], [place] [phone] [place] (15 min) Moderate 10/13/2016 Patient Education: Patient Medication Summary Completed 10/13/2016 Appointment: Marcela Oshea WPtel: [address] [place], [place] [phone] (30 min) Complex 10/12/2016 Visit Plan: Right foot hdow-brezcepn-khoyj washer dropped on foot-xray negative but pain continues to increase-recommend MRI of foot for further evaluation-refer to wound care for lesions on right foot, patient has diabetes and history of osteomyelitis-culture obtained today-continue oral abx- follow up in the office on , sooner if needed 10/09/2016 Visit Plan: Right foot xgke-qrtcuxye-wpnuz washer dropped on foot-xray negative but pain continues to increase-recommend MRI of foot for further evaluation-refer to wound care for lesions on right foot, patient has diabetes and history of osteomyelitis-culture obtained today-continue oral abx- follow up in the office on , sooner if needed 10/09/2016 Visit Plan: Right foot qvif-nodqojci-kihmf washer dropped on foot-xray negative but pain continues to increase-recommend MRI of foot for further evaluation-refer to wound care for lesions on right foot, patient has diabetes and history of osteomyelitis-culture obtained today-continue oral abx- follow up in the office on , sooner if needed 10/09/2016 Appointment: Marcela Oshea WPtel: [address] [place] [address] (30 min) Complex 10/09/2016 Patient Education: Patient Medication Summary Completed 10/09/2016 Visit Plan: Cellulitis - continue with oral antibiotics as previously directed, return to clinic as previously directed, call for acute change in symptoms, worsening redness, warmth, discharge. 10/06/2016 Appointment: Marcela Oshea WPtel: [address] [place], [place] [phone] (10 min) Simple 10/06/2016 Patient Education: Patient Medication Summary Completed 10/06/2016 Appointment: Marcela Oshea WPtel: [address] [place], [place] [phone] (30 min) Complex 08/24/2016 Referral: Sun Glynn Referral Completed 07/21/2016 Visit Plan: Low back pain- history of spinal fusion- patient for xray lumbar spine-RX sent to [facility] and instructed on use-topical voltaren samples provided and instructed on use. Ok to use tylenol as needed as well. The patient is to call the office if the pain is worsening or does not improve. Pressure ulcer left 4th toe-refer to Dr Glynn for evaluation 07/18/2016 Appointment: Marcela Oshea WPtel: [phone] [phone] (30 min) Complex 07/18/2016 Patient Education: Patient Medication Summary Completed 07/18/2016 Patient Education: Obesity Completed 07/18/2016 Care Plan: Referral Order SNOMED-CT : [id number] Cancelled 07/18/2016 Visit Plan: Diabetes Mellitus - [...] control. 06/22/2016 Appointment: Marcela Oshea WPtel: [phone] [phone] (30 min) Complex 06/22/2016 Patient [...] today 05/23/2016 Appointment: Marcela Oshea WPtel: [phone] [phone] (30 min) Complex 05/23/2016 Patient Education: [...] of plan. 05/15/2016 Appointment: Marcela Oshea WPtel: [phone] (15 min) Moderate 05/15/2016 Patient Education: [...] if you want anai edge called into [facility]. 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 Low back pain- history of spinal fusion-patient for xray lumbar spine-RX [facility] and instructed on use-topical [...] for fracture from injury . Right foot dcot-gnrkayuz-nwkdc washer dropped on foot-xray negative but pain [...] for fracture from injury . Right foot smvh-iwzroxlp-myahs washer dropped on foot-xray negative but pain [...] for fracture from injury . Right foot grgo-taxgtmqd-rdtli washer dropped on foot-xray negative but pain continues to increase-recommend MRI of foot for further evaluation-refer to wound care for lesions on right foot, patient has diabetes and history of osteomyelitis-culture obtained today-continue oral abx-follow up in the office on , sooner if needed . Bilateral hip nxbt-sgqnxivw-vkipqpd IM injection administered today for c/o continued myalgia/arthralgia. Patient to start taking Meloxicam 15mg PO daily. Advised to return to clinic if symptoms do not improve. . DM-weight loss-not checking blood sugars-patient sent for labs today HTN-low gqjca-fretzni-ywtct labs Callus of foot and fissue of [...] readings are starting to become less controlled. Yknebfbto-ughcoxte-rqwnzkxq to monitor Generalized weakness-refer for PT-patient refuses [...] allow for greater blood glucose control. Joint zbyr-wwgdnddu-jvfpbxn-symptoms have improved -stop meloxicam due to upset [...] readings at home. Diabetes Mellitus -check labs Qdzqkhjr-krcexwk-lnhs bite-rx for doxycycline-follow up in 2 weeks [...]
--- OUTSIDE RECORDS SUMMARY | 2018-10-20 11:29 | XMS REPORT | CCD ---
Author Author Madeline Kennedy MD, [facility] Address [address] [place] [address] Phone Care Team Providers Care Product Marketing Manager Name Role Phone PP Unavailable CCM Unavailable Summary Purpose Interface Exchange Insurance Providers Payer name Policy type / Coverage type Covered libertarian ID Effective Begin Date Effective End Date Blue Cross Blue Shield [facility] Blue Cross/Blue Shield [id number] Unknown Family history Father Diagnosis Age At Onset Hyperlipidemia Unknown Heart Attack Unknown Mother Diagnosis Age At Onset Hypertension Unknown Social History Social History Element Codes Description Effective Dates Marital status Unknown Mignon 01/20/2016 Number of children Unknown 4 01/20/2016 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/[address]: 572895868 Never smoker 01/20/[address]: 646440637 Never drinks alcohol 01/20/2016 Allergies, Adverse Reactions, [...] U-100 Insulin aspart 100 unit/mL subcutaneous RxNorm: 5520171 10 Unit(s) SQ AC 06/18/20182017 Active this is an update on his medication Lasix 20 mg tablet RxNorm: 359577 1 Tablet(s) PO BIW 201710/09/2018 Active atorvastatin 80 mg tablet RxNorm: 788279 1 Tablet(s) PO QHS 04/201812/06/2018 Active clonazepam 1 mg tablet RxNorm: 375510 2 Tablet(s) PO HS 201706/04/2019 Active Lyrica 50 mg capsule RxNorm: 826623 Capsule(s) PO daily 2017 No Stop Date Active clonazepam 1 mg tablet RxNorm: 351406 2 Tablet(s) PO HS as needed 06/10/2018 06/09/2018 Inactive Lasix 20 mg tablet RxNorm: 358592 1 Tablet(s) PO TIW 201706/11/2018 Inactive Toujeo SoloStar U-300 Insulin 300 unit/mL (1.5 mL) subcutaneous pen RxNorm: 7485128 50 Unit(s) SQ daily 05/07/2018 No Stop Date Active meloxicam 15 mg tablet RxNorm: 671039 15 Milligram(s) PO daily 05/02/2018 05/12/2018 Inactive ketorolac 30 mg/mL injection solution RxNorm: 850434 2 Milliliter(s) Inj 05/02/2018 05/02/2018 Inactive Toujeo SoloStar U-300 Insulin 300 unit/mL (1.5 mL) subcutaneous pen RxNorm: 7210263 45 Unit(s) daily 04/29/2018 Inactive clonazepam 1 mg tablet RxNorm: 492012 1 Tablet(s) PO Q8 as needed 04/29/2018 06/09/2018 Inactive doxycycline hyclate 100 mg tablet RxNorm: 6823473 1 Tablet(s) PO BID 04/29/2018 05/12/2018 Inactive Cymbalta 30 mg capsule,delayed release RxNorm: 832880 1 Capsule(s) PO QAM 03/13/2018 10/08/2018 Active Lexapro 10 mg tablet RxNorm: 387253 1 Tablet(s) PO QPM 201703/03/2018 Inactive Toujeo SoloStar U-300 Insulin 300 unit/mL (1.5 mL) subcutaneous pen RxNorm: 5484824 20 Unit(s) daily 02/28/2018 Inactive Protonix 40 mg tablet,delayed release RxNorm: 238494 1 Tablet(s) PO daily 01/29/2018 06/09/2018 Inactive clonazepam 1 mg tablet RxNorm: 273986 1 Tablet(s) PO Q8 as needed 12/12/2017 03/10/2018 Inactive Tamiflu 75 mg capsule RxNorm: 951020 1 Capsule(s) PO BID 201712/03/2017 Inactive doxycycline hyclate 100 mg capsule RxNorm: 8415711 1 Capsule(s) PO BID 09/07/2017 09/20/2017 Inactive doxycycline hyclate 100 mg capsule RxNorm: 8227210 1 Capsule(s) PO BID 08/27/2017 09/06/2017 Inactive prednisone 20 mg tablet RxNorm: 454170 2 Tablet(s) PO daily 08/31/2017 Inactive clopidogrel 75 mg tablet RxNorm: 509029 1 Tablet(s) PO daily 06/09/2018 Inactive atorvastatin 40 mg tablet RxNorm: 002979 1 Tablet(s) PO QHS 02/27/2018 Inactive losartan 25 mg tablet RxNorm: 979964 TAKE ONE TABLET BY MOUTH DAILY 08/22/2017 06/09/2018 Inactive Toujeo SoloStar 300 unit/mL (1.5 mL) subcutaneous insulin pen RxNorm: 5578150 45 Unit(s) daily 08/17/2017 08/20/2017 Inactive mupirocin 2 % topical ointment RxNorm: 280929 1 Application TOP TID to the lesions on chest 08/16/2017 08/25/2017 Inactive Toujeo SoloStar 300 unit/mL (1.5 mL) subcutaneous insulin pen RxNorm: 7414582 40 Unit(s) daily 08/16/2017 08/16/2017 Inactive valacyclovir 1 gram tablet RxNorm: 641836 1 Tablet(s) PO TID 08/01/2017 Inactive clonazepam 1 mg tablet RxNorm: 848358 1 Tablet(s) PO Q8 as needed 07/03/2017 09/30/2017 Inactive Levaquin 500 mg tablet RxNorm: 337811 1 Tablet(s) PO daily 06/25/2017 Inactive Levaquin 500 mg tablet RxNorm: 234678 1 Tablet(s) PO daily 06/21/2017 Inactive losartan 25 mg tablet RxNorm: 193868 1 Tablet(s) PO daily 201608/16/2017 Inactive nystatin 100,000 unit/mL oral suspension RxNorm: 221163 5 Milliliter(s) PO QID Swish et swallow 06/18/2017 06/17/2017 Inactive nystatin 100,000 unit/mL oral suspension RxNorm: 925091 5 Milliliter(s) PO QID Swish et swallow 06/18/2017 06/27/2017 Inactive Cipro 500 mg tablet RxNorm: 816330 1 Tablet(s) PO BID 201606/18/2017 Inactive Cipro 500 mg tablet RxNorm: 407249 1 Tablet(s) PO BID 201606/11/2017 Inactive Toujeo SoloStar 300 unit/mL (1.5 mL) subcutaneous insulin pen RxNorm: 2130832 INJECT 10 UNITS UNDER THE SKIN DAILY 06/12/2017 08/15/2017 Inactive Keflex 500 mg capsule RxNorm: 487190 1 Capsule(s) PO TID 201606/13/2017 Inactive doxycycline hyclate 100 mg capsule RxNorm: 6154364 1 Capsule(s) PO BID 05/17/2017 05/21/2017 Inactive doxycycline hyclate 100 mg capsule RxNorm: 6086910 1 Capsule(s) PO BID 05/11/2017 05/16/2017 Inactive losartan 25 mg tablet RxNorm: 163896 1 Tablet(s) PO daily 201606/17/2017 Inactive atorvastatin 40 mg tablet RxNorm: 219776 1 Tablet(s) PO daily 03/01/2017 08/23/2017 Inactive clopidogrel 75 mg tablet RxNorm: 946806 1 Tablet(s) PO daily 08/23/2017 Inactive Flonase Allergy Relief 50 mcg/actuation nasal spray, suspension RxNorm: 0176356 2 [place] NASAL daily 02/16/20172016 Inactive Augmentin 875 mg-125 mg tablet RxNorm: 584412 1 Tablet(s) PO BID 02/16/2017 02/22/2017 Inactive GET PROBIOTIC TO TAKE WHILE ON ABX Tamiflu 75 mg capsule RxNorm: 171836 1 Capsule(s) PO BID 201602/20/2017 Inactive ceftriaxone 500 mg solution for injection RxNorm: 7910117 1 Milliliter(s) Inj 02/16/2017 02/16/2017 Inactive Kenalog 40 mg/mL suspension for injection RxNorm: 0981611 1 Milliliter(s) Inj 02/16/2017 02/16/2017 Inactive Toujeo SoloStar 300 unit/mL (1.5 mL) subcutaneous insulin pen RxNorm: 9157766 25 Unit(s) SQ QAM 02/12/2017 06/10/2017 Inactive Toujeo SoloStar 300 unit/mL (1.5 mL) subcutaneous insulin pen RxNorm: 0315272 10 Unit(s) SQ QAM 02/05/2017 02/11/2017 Inactive lisinopril 10 mg tablet RxNorm: 634113 1 Tablet(s) PO daily 02/28/2017 Inactive atorvastatin 40 mg tablet RxNorm: 377727 1 Tablet(s) PO daily 02/01/2017 02/28/2017 Inactive doxycycline hyclate 100 mg capsule RxNorm: 4402603 1 Capsule(s) PO BID 02/01/2017 02/10/2017 Inactive clonazepam 1 mg tablet RxNorm: 722744 1 Tablet(s) PO Q8 as needed 10/09/2016 01/05/2017 Inactive ceftriaxone 1 gram solution for injection RxNorm: 7154070 Inj 10/06/2016 10/06/2016 Inactive cyclobenzaprine 10 mg tablet RxNorm: 147771 1/2-1 Tablet(s) PO TID PRN 07/18/2016 01/28/2017 Inactive clonazepam 1 mg tablet RxNorm: 520050 1 Tablet(s) PO Q8 as needed 05/31/2016 05/29/2016 Inactive clonazepam 1 mg tablet RxNorm: 636157 1 Tablet(s) PO Q8 as needed 05/31/2016 08/28/2016 Inactive Toujeo SoloStar 300 unit/mL (1.5 mL) subcutaneous insulin pen RxNorm: 3035622 10 Unit(s) SQ daily 05/23/2016 01/28/2017 Inactive Crestor 10 mg tablet RxNorm: 599887 1 Tablet(s) PO QHS 201501/28/2017 Inactive Crestor 10 mg tablet RxNorm: 824935 1 Tablet(s) PO QHS 201505/18/2016 Inactive clonazepam 1 mg tablet RxNorm: 222492 1 Tablet(s) PO Q8 as needed 04/25/2016 05/30/2016 Inactive prednisone 20 mg tablet RxNorm: 120771 3 Tablet(s) PO daily 06/201602/10/2016 Inactive prednisone 20 mg tablet RxNorm: 407914 3 Tablet(s) PO daily 06/201605/14/2016 Inactive Kenalog 40 mg/mL suspension for injection RxNorm: 3104393 Milliliter(s) Inj 01/20/2016 01/20/2016 Inactive aspirin 81 mg tablet,delayed release RxNorm: 239385 1 Tablet(s) PO daily No Start Date Active Brilinta 90 mg tablet RxNorm: 8164280 1 Tablet(s) PO BID No Start Date Active Coreg 6.25 mg tablet RxNorm: 598055 1 Tablet(s) PO BID No Start Date Active acetaminophen 500 mg tablet RxNorm: 610158 1-2 Tablet(s) PO as needed No Start Date Active clopidogrel 75 mg tablet RxNorm: 895295 1 Tablet(s) PO daily No Start Date 02/28/2017 Inactive Novolog Flexpen U-100 Insulin aspart 100 unit/mL subcutaneous RxNorm: 2297567 5 units with breakfast lunch and 10 supper Unit(s) SQ No Start Date 06/17/2018 Inactive clonazepam 1 mg tablet RxNorm: 718368 1 Tablet(s) PO QHS No Start Date 04/24/2016 Inactive acyclovir 400 mg tablet RxNorm: 174753 2 Tablet(s) PO 5x daily No Start Date 02/28/2017 Inactive Lyrica 50 mg capsule RxNorm: 553049 Capsule(s) PO BID No Start Date 06/09/2018 Inactive Vraylar 3 mg capsule RxNorm: 0864167 1 Capsule(s) PO daily No Start Date 03/12/2018 Inactive Medication Administered Medication Codes Instructions Start Date Status ketorolac 30 mg/mL injection solution RxNorm: 807771 2Milliliter 05/02/2018 No longer Active ceftriaxone 500 mg solution for injection RxNorm: 0970335 1Milliliter 02/16/2017 No longer Active Kenalog 40 mg/mL suspension for injection RxNorm: 1673334 1Milliliter 02/16/2017 No longer Active ceftriaxone 1 gram solution for injection RxNorm: 9377604 10/06/2016 No longer Active Kenalog 40 mg/mL suspension for injection RxNorm: 0013209 Milliliter 01/20/2016 No longer Active Immunizations Vaccine Codes Date Status Influenza CVX: 141 08/16/2017 completed Assessments Condition Codes Effective Dates Type 2 diabetes mellitus with hyperglycemia ICD-10: [...] Code Item Item Code Result Date CBC 0485871 WBC 6.4 10e9/L 05/02/2018 CBC 0137133 RBC 5.60 10e12/L 05/02/2018 CBC 9001892 HEMOGLOBIN 17.0 g/dL 05/02/2018 CBC 2978690 HEMATOCRIT 48.0 % 05/02/2018 CBC 8604683 MCV 85.7 fL 05/02/2018 CBC 2321543 MCH 30.4 pg 05/02/2018 CBC 5670434 MCHC 35.4 g/dL 05/02/2018 CBC 5111589 PLATELET COUNT 166 10e9/L 05/02/2018 CBC 6445324 Mean Plt Volume 11.6 fL 05/02/2018 CBC 1466753 Neut Auto 48.6 % 05/02/2018 CBC 6257408 Lymph Auto 41.7 % 05/02/2018 CBC 9024523 [place] Auto 8.1 % 05/02/2018 CBC 5653974 RDW 13.1 % 05/02/2018 CBC 9934186 Eos Auto 1.1 % 05/02/2018 CBC 5309204 Baso Auto 0.5 % 05/02/2018 CBC 2341819 Neutrophil Abs 3.11 10e9/L 05/02/2018 CBC 9893268 Lymphocyte Abs 2.67 10e9/L 05/02/2018 CBC 5916862 Monocyte Abs 0.52 10e9/L 05/02/2018 CBC 4276842 Eosinophil Abs 0.07 10e9/L 05/02/2018 CBC 8685613 RDW-SD 40.0 fL 05/02/2018 CBC 9670608 Basophil Abs 0.03 10e9/L 05/02/2018 CHEM 14 6676723 AST 17 U/L 05/02/2018 CHEM 14 5428863 ALT 17 U/L 05/02/2018 CHEM 14 6871151 BUN 17 mg/dL 05/02/2018 CHEM 14 8397113 ALBUMIN 4.0 g/dL 05/02/2018 CHEM 14 9590121 CHLORIDE 97 mmol/L 05/02/2018 CHEM 14 6958102 Bili Total 0.9 mg/dL 05/02/2018 CHEM 14 7299732 ALK PHOS 67 U/L 05/02/2018 CHEM 14 3246952 SODIUM 135 mmol/L 05/02/2018 CHEM 14 6360756 CREATININE 1.18 mg/dL 05/02/2018 CHEM 14 5066575 CALCIUM 9.4 mg/dL 05/02/2018 CHEM 14 6276758 POTASSIUM 4.4 mmol/L 05/02/2018 CHEM 14 9143290 TOTAL PROTEIN 6.9 g/dL 05/02/2018 CHEM 14 1997741 GLUCOSE 316 mg/dL 05/02/2018 CHEM 14 9717701 Bicarbonate 29 mmol/L 05/02/2018 CHEM 14 9456529 AGAP 9 mmol/L 05/02/2018 MEAN GLUC 2974359 Calc Mean Gluc 283 mg/dL 05/02/2018 A1C HPLC 5052905 Hgb A1c 53720-9 11.5 % 05/02/2018 GFR CALC 1899939 GFR Non Afr Amr >60 mL/min 05/02/2018 GFR CALC 2290637 GFR Afr Amr >60 mL/min 05/02/2018 JIC Gold 6827294 JIC Gold Complete 02/28/2018 GFR CALC 5790475 GFR Non Afr Amr >60 mL/min 02/28/2018 GFR CALC 6094961 GFR Afr Amr >60 mL/min 02/28/2018 UA W/CII 4987707 UA Urine Appear Normal 02/28/2018 UA W/CII 6299453 UA Protein 1+ 02/28/2018 UA W/CII 8453321 UA Hemoglobin Negative 02/28/2018 UA W/CII 3101306 UA Glucose 4+ 02/28/2018 UA W/CII 9815632 UA Ketones Trace 02/28/2018 UA W/CII 7597959 UA pH 5.5 02/28/2018 UA W/CII 1947973 U Spec [place] 1.015 02/28/2018 UA W/CII 1584769 UA Bilirubin Negative 02/28/2018 UA W/CII 9443541 UA Nitrite NEG 02/28/2018 UA W/CII 2470619 UA Leuk Esteras Negative 02/28/2018 MICR 6956895 UA WBC/hpf 1 02/28/2018 MICR 8880252 UA RBC hpf 2 02/28/2018 MICR 3916548 UA WBC auto 3.8 /uL 02/28/2018 MICR 1443703 UA RBC auto 12.2 /uL 02/28/2018 MICR 6689949 UA SQ EPI auto 2.3 /uL 02/28/2018 MICR 1421823 UA H Cast auto 0.10 /uL 02/28/2018 CBC 4544720 WBC 6.4 10e9/L 02/28/2018 CBC 7793916 RBC 5.51 10e12/L 02/28/2018 CBC 8046485 HEMOGLOBIN 16.7 g/dL 02/28/2018 CBC 8332370 HEMATOCRIT 46.9 % 02/28/2018 CBC 8204932 MCV 85.1 fL 02/28/2018 CBC 4948797 MCH 30.3 pg 02/28/2018 CBC 5456707 MCHC 35.6 g/dL 02/28/2018 CBC 3505286 PLATELET COUNT 173 10e9/L 02/28/2018 CBC 5222679 Mean Plt Volume 11.6 fL 02/28/2018 CBC 3772027 Neut Auto 51.8 % 02/28/2018 CBC 4176240 Lymph Auto 39.9 % 02/28/2018 CBC 9870008 [place] Auto 7.3 % 02/28/2018 CBC 6595133 Eos Auto 0.8 % 02/28/2018 CBC 2500850 RDW 13.3 % 02/28/2018 CBC 4094608 Baso Auto 0.2 % 02/28/2018 CBC 7478091 Neutrophil Abs 3.32 10e9/L 02/28/2018 CBC 5599273 Lymphocyte Abs 2.55 10e9/L 02/28/2018 CBC 5443322 Monocyte Abs 0.47 10e9/L 02/28/2018 CBC 5917263 Eosinophil Abs 0.05 10e9/L 02/28/2018 CBC 9341122 Basophil Abs 0.01 10e9/L 02/28/2018 CBC 2002370 RDW-SD 40.8 fL 02/28/2018 CHEM 14 4174328 AST 17 U/L 02/28/2018 CHEM 14 1455337 ALT 17 U/L 02/28/2018 CHEM 14 7755922 BUN 20 mg/dL 02/28/2018 CHEM 14 2804073 ALBUMIN 4.1 g/dL 02/28/2018 CHEM 14 9811170 CHLORIDE 97 mmol/L 02/28/2018 CHEM 14 5871151 Bili Total 1.3 mg/dL 02/28/2018 CHEM 14 8749116 ALK PHOS 78 U/L 02/28/2018 CHEM 14 0269525 SODIUM 135 mmol/L 02/28/2018 CHEM 14 7010495 CREATININE 1.09 mg/dL 02/28/2018 CHEM 14 0896331 CALCIUM 9.6 mg/dL 02/28/2018 CHEM 14 9080677 POTASSIUM 3.8 mmol/L 02/28/2018 CHEM 14 6025183 TOTAL PROTEIN 7.3 g/dL 02/28/2018 CHEM 14 0583366 GLUCOSE 349 mg/dL 02/28/2018 CHEM 14 2110768 Bicarbonate 29 mmol/L 02/28/2018 CHEM 14 2387431 AGAP 9 mmol/L 02/28/2018 [place] Spotted Fever Igg/Igm 480351 FEI MT SPOTTED FEVER IGM EIA . 09/05/2017 [place] Spotted Fever Igg/Igm 940145 RMSF, IGM 0.17 index 09/05/2017 [place] Spotted Fever Igg/Igm 649211 FEI MT SPOTTED FEVER IGG EIA FLEX . 09/05/2017 [place] Spotted Fever Igg/Igm 550839 RMSF, IGG SCREEN-FLEX Positive 09/05/2017 Fei Mtn Spot'D Fev Igg 048128 RMSF, IGG -TITER IFA <1:64 11/2016 Ehrlichia Chaffeensis Antibody Igm 296372 EHRLICHIA CHAFFEENSIS IGM < 1:16 09/03/2017 Ehrlichia Chaffeensis Antibody Igg 798760 EHRLICHIA CHAFFEENSIS IGG <1:64 09/03/2017 Lymes Disease Total Antibodies With Western Blot Reflex B. BURGDORFERI, IGG/IGM 0.223 08/30/2017 Lymes Disease Total Antibodies With Western Blot Reflex C-Reactive Protein Qnt Crqnt CRP 0.00 mg/dl 08/27/2017 Sed Rate Ord21 ESR 8 mm/hr 08/27/2017 Comp Metabolic Nsu026 NA 135 mEq/L 08/16/2017 Comp Metabolic Bvm234 K 4.1 mEq/L 08/16/2017 Comp Metabolic Jri823 CL 98 mEq/L 08/16/2017 Comp Metabolic Tdo032 CO2 28.0 mEq/L 08/16/2017 Comp Metabolic Hhr553 ANION GAP 13 08/16/2017 Comp Metabolic Jvr115 GLUCOSE 299 mg/dL 08/16/2017 Comp Metabolic Wts535 Creat 0.9 mg/dL 08/16/2017 Comp Metabolic Ijy121 eGFR 90 ml/min/1.73m2 08/16/2017 Comp Metabolic Bkf367 BUN 20 mg/dL 08/16/2017 Comp Metabolic Fcj814 B/C Ratio 21.5 Ratio 08/16/2017 Comp Metabolic Rjw759 CALCIUM 9.2 mg/dL 08/16/2017 Comp Metabolic Kqd867 ALK PHOS 84 U/L 08/16/2017 Comp Metabolic Hhw505 AST(SGOT) 19 U/L 08/16/2017 Comp Metabolic Orq109 ALT(SGPT) 24 U/L 08/16/2017 Comp Metabolic Jue813 BILI T 1.1 mg/dL 08/16/2017 Comp Metabolic Xeu580 ALBUMIN 4.2 g/dL 08/16/2017 Comp Metabolic Mnn943 TPRO 7.2 g/dL 08/16/2017 Comp Metabolic Kyv892 GLOB 3.0 g/dL 08/16/2017 Comp Metabolic Fda414 A/G Ratio 1.4 Ratio 08/16/2017 Comp Metabolic Tzn973 Osmo 284 mOsmo 08/16/2017 %Hba1C Usf225 % HbA1c 70265-3 12.5 % 08/16/2017 %Hba1C Lew188 Gluc Ave 312 mg/dL 08/16/2017 Urine Culture Ucult Complete NO Growth Day 2 06/23/2017 Urine Culture Ucult Preliminary NO Growth Day 1 06/23/2017 C RAP A SC 6525900 Strep A Negative 06/08/2017 %Hba1C Ghh478 % HbA1c 80816-9 9.5 % 05/04/2017 %Hba1C Alk682 Gluc Ave 226 mg/dL 05/04/2017 Tsh Ord6 [...] 89.9 fl 05/04/2017 Cbc With Differential Ord2 [place]% 8.5 % 05/04/2017 Cbc With Differential Ord2 [...] 2.48 K/ul 05/04/2017 Cbc With Differential Ord2 [place] ABS# 0.5 K/ul 05/04/2017 Cbc With Differential Ord2 Eos ABS# 0.1 K/ul 05/04/2017 Cbc With Differential Ord2 Baso ABS# 0.0 K/ul 05/04/2017 Comp Metabolic Oal175 NA 135 mEq/L 05/04/2017 Comp Metabolic Jnl474 K 4.2 mEq/L 05/04/2017 Comp Metabolic Ouj920 CL 99 mEq/L 05/04/2017 Comp Metabolic Jsp255 CO2 26.0 mEq/L 05/04/2017 Comp Metabolic Ibh951 ANION GAP 14 05/04/2017 Comp Metabolic Cgv301 GLUCOSE 277 mg/dL 05/04/2017 Comp Metabolic Csd253 Creat 0.9 mg/dL 05/04/2017 Comp Metabolic Yaq377 eGFR 96 ml/min/1.73m2 05/04/2017 Comp Metabolic Ppp889 BUN 23 mg/dL 05/04/2017 Comp Metabolic Wsp442 B/C Ratio 26.1 Ratio 05/04/2017 Comp Metabolic Efb409 CALCIUM 8.9 mg/dL 05/04/2017 Comp Metabolic Kxa570 ALK PHOS 81 U/L 05/04/2017 Comp Metabolic Xln303 AST(SGOT) 21 U/L 05/04/2017 Comp Metabolic Jyf342 ALT(SGPT) 27 U/L 05/04/2017 Comp Metabolic Kux254 BILI T 1.2 mg/dL 05/04/2017 Comp Metabolic Uyu767 ALBUMIN 4.0 g/dL 05/04/2017 Comp Metabolic Lbc649 TPRO 6.7 g/dL 05/04/2017 Comp Metabolic Xof455 GLOB 2.7 g/dL 05/04/2017 Comp Metabolic Xbk704 A/G Ratio 1.5 Ratio 05/04/2017 Comp Metabolic Urt559 Osmo 284 mOsmo 05/04/2017 C A/B FLU 5732043 Influenza A Scr Negative 02/16/2017 C A/B FLU 2940777 Influenza B Scr Positive 02/16/2017 Cbc With [...] 39.7 % 05/23/2016 Cbc With Differential Ord2 [place]% 8.8 % 05/23/2016 Cbc With Differential Ord2 [...] 2.07 K/ul 05/23/2016 Cbc With Differential Ord2 [place] ABS# 0.5 K/ul 05/23/2016 Cbc With Differential Ord2 Eos ABS# 0.1 K/ul 05/23/2016 Cbc With Differential Ord2 Baso ABS# 0.0 K/ul 05/23/2016 Lipid Ord30 CHOL 397 mg/dL 05/17/2016 Lipid Ord30 HDL 48.0 mg/dl 05/17/2016 Lipid Ord30 TRIG 578 mg/dL 05/17/2016 Lipid Ord30 LDL Unable to calculate Due to elevated triglycerides mg/dL 05/17/2016 Lipid Ord30 C/HDL 8.3 Ratio 05/17/2016 %Hba1C Vug337 % HbA1c 14208-0 12.4 % 05/16/2016 %Hba1C Iup558 Gluc Ave 309 mg/dL 05/16/2016 Cbc With [...] 87.4 fl 05/15/2016 Cbc With Differential Ord2 [place]% 7.8 % 05/15/2016 Cbc With Differential Ord2 [...] 2.04 K/ul 05/15/2016 Cbc With Differential Ord2 [place] ABS# 0.5 K/ul 05/15/2016 Cbc With Differential Ord2 Eos ABS# 0.1 K/ul 05/15/2016 Cbc With Differential Ord2 Baso ABS# 0.0 K/ul 05/15/2016 Tsh Ord6 hTSH II 1.70 uIU/mL 05/15/2016 Comp Metabolic Vsi917 NA 135 mEq/L 05/15/2016 Comp Metabolic Oor183 K 3.9 mEq/L 05/15/2016 Comp Metabolic Rue949 CL 96 mEq/L 05/15/2016 Comp Metabolic Phv802 CO2 27.0 mEq/L 05/15/2016 Comp Metabolic Agf336 ANION GAP 16 05/15/2016 Comp Metabolic Kdl231 GLUCOSE 183 mg/dL 05/15/2016 Comp Metabolic Azp583 Creat 1.1 mg/dL 05/15/2016 Comp Metabolic Idw714 eGFR 71 ml/min/1.73m2 05/15/2016 Comp Metabolic Jqc918 BUN 17 mg/dL 05/15/2016 Comp Metabolic Zbq690 B/C Ratio 14.9 Ratio 05/15/2016 Comp Metabolic Vrw431 CALCIUM 9.6 mg/dL 05/15/2016 Comp Metabolic Azo477 ALK PHOS 100 U/L 05/15/2016 Comp Metabolic Cjd880 AST(SGOT) 20 U/L 05/15/2016 Comp Metabolic Pae364 ALT(SGPT) 20 U/L 05/15/2016 Comp Metabolic Mjk087 BILI T 1.3 mg/dL 05/15/2016 Comp Metabolic Rdm017 ALBUMIN 4.6 g/dL 05/15/2016 Comp Metabolic Mbh061 TPRO 8.1 g/dL 05/15/2016 Comp Metabolic Zxf850 GLOB 3.5 g/dL 05/15/2016 Comp Metabolic Zjm332 A/G Ratio 1.3 Ratio 05/15/2016 Comp Metabolic Tug060 Osmo 276 mOsmo 05/15/2016 Review of Systems [...] clear 03/13/2018 None Full Exam - General 1995 [...] of skin Location: face 05/04/2017 patch left buddhist Full Exam - General 1994 Constitutional general [...] NO PRSV 4 MENA 3 YRS+ CPT-4: 83251 08/16/2017 IMMUNIZATION ADMIN CPT -4: 45597 08/16/2017 URINALYSIS NONAUTO W/O SCOPE CPT-4: 90921 06/21/2017 TRIAMCINOLONE ACET INJ NOS CPT-4: J3301 05/04/2017 THER/PROPH/DIAG INJ SC/IM CPT-4: 23162 05/04/2017 TRIAMCINOLONE ACET INJ NOS CPT-4: J3301 02/16/2017 ROCEPHIN, PER 250 MG CPT-4: J0696 02/16/2017 ROCEPHIN, PER 250 MG CPT-4: J0696 10/06/2016 URINALYSIS NONAUTO W/O SCOPE CPT-4: 10619 07/18/2016 TRIAMCINOLONE ACET INJ NOS CPT-4: J3301 01/20/2016 Vital Signs Date Vital 06/18/2018 Blood Pressure 1: 138/82 Code : 8480-6 BMI: 31.8 Code : 18469-1 Heart Rate 1 : 82 bpm Height: 6'2" SpO2: 97% Weight: 248 lbs 06/04/2018 Blood Pressure 1: 128/84 Code : 8480-6 BMI: 33.9 Code : 46349-6 Heart Rate 1 : 86 bpm Height: 6'2" SpO2: 95% Weight: 264 lbs 05/13/2018 Blood Pressure 1: 130/80 Code : 8480-6 BMI: 31.1 Code : 16698-8 Heart Rate 1 : 100 bpm Height: 6'2" SpO2: 94% Weight: 242 lbs 05/02/2018 Blood Pressure 1: 134/84 Code : 8480-6 BMI: 31.2 Code : 59189-6 Heart Rate 1 : 93 bpm Height: 6'2" SpO2: 98% Weight: 243 lbs 04/29/2018 Blood Pressure 1: 142/88 Code : 8480-6 BMI: 31.6 Code : 13553-8 Heart Rate 1 : 96 bpm Height: 6'2" SpO2: 96% Temperature: 36.7 (C) / 98.1 (F) Weight: 246 lbs 03/13/2018 Blood Pressure 1: 120/76 Code : 8480-6 BMI: 30.9 Code : 53196-0 Heart Rate 1 : 112 bpm Height: 6'2" SpO2: 97% Weight: 241 lbs 03/07/2018 Blood Pressure 1: 108/78 Code : 8480-6 BMI: 30.0 Code : 04656-4 Heart Rate 1 : 87 bpm Height: 6'2" SpO2: 98% Weight: 234 lbs 02/28/2018 Blood Pressure 1: 106/74 Code : 8480-6 BMI: 30.0 Code : 53793-8 Heart Rate 1 : 101 bpm Height: 6'2" SpO2: 98% Temperature: 36.4 (C) / 97.5 (F) Weight: 234 lbs 02/13/2018 Blood Pressure 1: 110/78 Code : 8480-6 BMI: 30.0 Code : 35170-7 Heart Rate 1 : 106 bpm Height: 6'2" SpO2: 98% Weight: 234 lbs 01/29/2018 Blood Pressure 1: 106/68 Code : 8480-6 BMI: 30.0 Code : 82834-6 Heart Rate 1 : 108 bpm Height: 6'2" SpO2: 98% Weight: 234 lbs 08/27/2017 Blood Pressure 1: 134/76 Code : 8480-6 Heart Rate 1: 98 bpm Height: SpO2: 97% Weight: 08/16/2017 Blood Pressure 1: 128/80 Code : 8480-6 BMI: 32.0 Code : 07614-5 Heart Rate 1 : 94 bpm Height: [...] Code : 8480-6 BMI: 31.8 Code : 44272-6 Heart Rate 1 : 102 bpm Height: [...] Code : 8480-6 BMI: 31.8 Code : 82107-6 Heart Rate 1 : 85 bpm Height: 6'2" SpO2: 96% Temperature: 36.6 (C) / 97.9 (F) Weight: 248 lbs 02/12/2017 Blood Pressure 1: 126/76 Code : 8480-6 BMI: 31.8 Code : 01810-2 Heart Rate 1 : 106 bpm Height: 6'2" SpO2: 91% Weight: 248 lbs 02/05/2017 Blood Pressure 1: 146/86 Code : 8480-6 BMI: 31.9 Code : 37175-8 Heart Rate 1 : 98 bpm Height: 6'2" SpO2: 87% Temperature: 36.7 (C) / 98.0 (F) Weight: 248 lbs 8 oz 01/29/2017 Blood Pressure 1: 132/84 Code : 8480-6 BMI: 31.8 Code : 92608-5 Heart Rate 1 : 83 bpm Height: 6'2" SpO2: 97% Weight: 248 lbs 10/13/2016 Blood Pressure 1: 128/72 Code : 8480-6 Heart Rate 1: 86 bpm SpO2: 94% 10/09/2016 Blood Pressure 1: 128/68 Code : 8480-6 Heart Rate 1: 136 bpm SpO2: 94% Temperature: 36.8 (C) / 98.2 (F) 10/06/2016 Blood Pressure 1: 140/80 Code : 8480-6 BMI: 32.1 Code : 71499-3 Heart Rate 1 : 94 bpm Height: 6'2" SpO2: 95% Weight: 250 lbs 07/18/2016 Blood Pressure 1: 128/86 Code : 8480-6 BMI: 32.1 Code : 92024-7 Heart Rate 1 : 89 bpm Height: 6'2" SpO2: 96% Weight: 250 lbs 06/22/2016 Blood Pressure 1: 118/70 Code : 8480-6 BMI: 32.1 Code : 37730-2 Heart Rate 1 : 70 bpm Height: 6'2" SpO2: 97% Weight: 250 lbs 05/23/2016 Blood Pressure 1: 128/80 Code : 8480-6 BMI: 32.1 Code : 66880-7 Heart Rate 1 : 76 bpm Height: 6'2" SpO2: 98% Weight: 250 lbs 05/15/2016 Blood Pressure 1: 110/90 Code : 8480-6 BMI: 31.3 Code : 49675-4 Heart Rate 1 : 111 bpm Height: 6'2" SpO2: 97% Temperature: 36.6 (C) / 97.8 (F) Weight: 244 lbs 01/20/2016 Blood Pressure 1: 128/76 Code : 8480-6 BMI: 33.0 Code : 63508-1 Heart Rate 1 : 103 bpm Height: [...] data Encounters Encounter Performer Location Codes Date ([id number]) [id number] EST. PATIENT, LEVEL IV Diagnosis: Type 2 diabetes mellitus with hyperglycemia[ICD10: E11.65] Diagnosis: Essential (primary) hypertension[ICD10: I10] Melida Ha MD, [facility] CPT-4: 13879 06/18/2018 ([id number]) [id number] EST. PATIENT, LEVEL IV Diagnosis: Type 2 diabetes mellitus with hyperglycemia[ICD10: E11.65] Diagnosis: Essential (primary) hypertension[ICD10: I10] Diagnosis: Localized edema[ICD10: R60.0] Melida Ha MD, [facility] CPT- 4: 87299 06/04/2018 ([id number]) [id number] EST. PATIENT, LEVEL III Diagnosis: Type 2 diabetes mellitus with hyperglycemia[ICD10: E11.65] Diagnosis: Myalgia[ICD10: M79.1] Diagnosis: Pain in right hip[ICD10: M25.551] Diagnosis: Pain in left hip[ICD10: M25.552] Marcela Ha MD, [facility] CPT-4: 10203 05/13/2018 ([id number]) [id number] EST. PATIENT, LEVEL III Diagnosis: Myalgia[ICD10: M79.1] Diagnosis: Pain in right hip[ICD10: M25.551] Diagnosis: Pain in left hip[ICD10: M25.552] Marcela Ha MD, [facility] CPT-4: 16691 05/02/2018 ([id number]) 13407 EST. PATIENT, LEVEL IV Diagnosis: Essential (primary) hypertension[ICD10: I10] Diagnosis: Type 2 diabetes mellitus with hyperglycemia[ICD10: E11.65] Diagnosis: Major depressive disorder, single episode, moderate[ICD10: F32.1] Diagnosis: Myalgia[ICD10: M79.1] Marcela Ha MD, [facility] CPT-4: 34837 04/29/2018 ([id number]) 29829 EST. PATIENT, LEVEL IV Diagnosis: Type 2 diabetes mellitus with hyperglycemia[ICD10: E11.65] Diagnosis: Essential (primary) hypertension[ICD10: I10] Diagnosis: Major depressive disorder, single episode, moderate[ICD10: F32.1] Melida Ha MD, [facility] CPT-4: 14768 03/13/2018 ([id number]) 84084 EST. PATIENT, LEVEL III Diagnosis: Type 2 diabetes mellitus with hyperglycemia[ICD10: E11.65] Diagnosis: Bipolar disorder, current episode depressed, moderate[ICD10: F31.32] Diagnosis: Orthostatic hypotension[ICD10: I95.1] Marcela Ha MD, [facility] CPT-4: 97218 03/07/2018 ([id number]) 78236 EST. PATIENT, LEVEL IV Diagnosis: Type 2 diabetes mellitus with hyperglycemia[ICD10: E11.65] Diagnosis: Major depressive disorder, single episode, moderate[ICD10: F32.1] Diagnosis: Orthostatic hypotension[ICD10: I95.1] Diagnosis: Other fatigue[ICD10: R53.83] Marcela Ha MD, [facility] CPT-4: 57036 02/28/2018 01062 EST. PATIENT, LEVEL IV Diagnosis: Other fatigue[ICD10: R53.83] Diagnosis: Other malaise[ICD10: R53.81] Diagnosis: Gastro-esophageal reflux disease without esophagitis[ICD10: K21.9] Madeline Ha MD, [facility] CPT-4: 80646 02/13/2018 ([id number]) 52345 EST. PATIENT, LEVEL IV Diagnosis: Type 2 diabetes mellitus with foot ulcer[ICD10: E11.621] Diagnosis: Essential (primary) hypertension[ICD10: I10] Diagnosis: Gastro-esophageal reflux disease without esophagitis[ICD10: K21.9] Marcela Ha MD, [facility] CPT-4: 93324 01/29/2018 07167 EST. PATIENT, LEVEL III Diagnosis: Other malaise[ICD10: R53.81] Diagnosis: Other fatigue[ICD10: R53.83] Diagnosis: Pain in right shoulder[ICD10: M25.511] Diagnosis: Pain in left shoulder[ICD10: M25.512] Madeline Ha MD, [facility] CPT-4: 01568 08/27/2017 ([id number]) 87608 EST. PATIENT, LEVEL IV Diagnosis: Essential (primary) hypertension[ICD10: I10] Diagnosis: Type 2 diabetes mellitus with hyperglycemia[ICD10: E11.65] Diagnosis: VACCIN FOR INFLUENZA[ICD10: Z23] Melida Ha MD, [facility] CPT-4: 63732 08/16/2017 30061 EST. PATIENT, LEVEL III Diagnosis: Zoster without complications[ICD10: B02.9] Madeline Ha MD, [facility] CPT-4: 14659 07/26/2017 ([id number]) 99339 EST. PATIENT, LEVEL III Diagnosis: Cellulitis of right lower limb[ICD10: L03.115] Marcela Ha MD, [facility] CPT-4: 81674 07/03/2017 39577 EST. PATIENT, LEVEL II Diagnosis: Laceration without foreign body of left forearm, initial encounter[ ICD10: S51.812A] Marcela Ha MD, [facility] CPT-4: 88500 06/29/2017 ([id number]) 14726 EST. PATIENT, LEVEL III Diagnosis: Cellulitis of right lower limb[ICD10: L03.115] Diagnosis: Type 2 diabetes mellitus with foot ulcer[ICD10: E11.621] Marcela Ha MD [facility] CPT-4: 76215 06/18/2017 ([id number]) 12097 EST. PATIENT, LEVEL IV Diagnosis: Cellulitis of right lower limb[ICD10: L03.115] Diagnosis: Acute laryngopharyngitis[ICD10: J06.0] Diagnosis: Gastro-esophageal reflux disease without esophagitis[ICD10: K21.9] Marcela Ha MD [facility] CPT-4: 48479 06/07/2017 ([id number]) 17812 EST. PATIENT, LEVEL III Diagnosis: Type 2 diabetes mellitus with hyperglycemia[ICD10: E11.65] Diagnosis: Insect bite (nonvenomous) of abdominal wall, initial encounter[ICD10 : S30.861A] Marcela Ha MD [facility] CPT-4: 81894 05/17/2017 ([id number]) 96246 EST. PATIENT, LEVEL III Diagnosis: Allergic contact dermatitis due to plants, except food[ICD10: L23.7] Melida Ha MD [facility] CPT-4: 63836 05/04/2017 ([id number]) 31602 EST. PATIENT, LEVEL III Diagnosis: Essential (primary) hypertension[ICD10: I10] Marcela Ha MD [facility] CPT-4: 28564 03/15/2017 ([id number]) 04879 EST. PATIENT, LEVEL III Diagnosis: Cough[ICD10: R05] Diagnosis: Essential (primary) hypertension[ICD10: I10] Marcela Ha MD [facility] CPT-4: 70641 03/01/2017 ([id number]) 41427 EST. PATIENT, LEVEL III Diagnosis: Cough[ICD10: R05] Diagnosis: Nasal congestion[ICD10: R09.81] Diagnosis: Acute recurrent maxillary sinusitis[ICD10: J01.01] Marcela Ha MD [facility] CPT-4: 28314 02/16/2017 ([id number]) 15604 EST. PATIENT, LEVEL III Diagnosis: Type 2 diabetes mellitus with hyperglycemia[ICD10: E11.65] Marcela Ha MD [facility] CPT-4: 38057 02/12/2017 ([id number]) 34745 EST. PATIENT, LEVEL IV Diagnosis: Type 2 diabetes mellitus with hyperglycemia[ICD10: E11.65] Diagnosis: Muscle weakness (generalized)[ICD10: M62.81] Diagnosis: Disorientation, unspecified[ICD10: R41.0] Marcela Ha MD, [facility] CPT-4: 96499 02/05/2017 ([id number]) Patient admitted to the hospital from clinic (NO CHARGE) Diagnosis: Type 2 diabetes mellitus with hyperglycemia[ICD10: E11.65] Diagnosis: Disorientation, unspecified[ICD10: R41.0] Diagnosis: Muscle weakness (generalized)[ICD10: M62.81] Marcela Ha MD, [facility] CPT-4: 57087J 01/29/2017 ([id number]) Miscellaneous no charge Diagnosis: Cellulitis of right lower limb[ICD10: L03.115] Marcela Ha MD, [facility] CPT-4: 52451 10/13/2016 ([id number]) Miscellaneous no charge Diagnosis: Type 2 diabetes mellitus with foot ulcer[ICD10: E11.621] Diagnosis: Pain in right foot[ICD10: M79.671] Marcela Ha MD, [facility] CPT-4: 87804 10/09/2016 41210 EST. PATIENT, LEVEL II Diagnosis: Cellulitis of right lower limb[ICD10: L03.115] Marcela Ha MD, [facility] CPT-4: 48170 10/06/2016 ([id number]) 28757 EST. PATIENT, LEVEL IV Diagnosis: Low back pain[ICD10: M54.5] Diagnosis: Other deformities of toe(s) (acquired), left foot[ICD10: M20.5X2] Diagnosis: Type 2 diabetes mellitus with foot ulcer[ICD10: E11.621] [facility] CPT-4: 74054 07/18/2016 ([id number]) 65372 EST. PATIENT, LEVEL III Diagnosis: Type 2 diabetes mellitus with hyperglycemia[ICD10: E11.65] [facility] CPT-4: 55863 06/22/2016 ([id number]) 53971 EST. PATIENT, LEVEL IV Diagnosis: Type 2 diabetes mellitus with hyperglycemia[ICD10: E11.65] Diagnosis: Mixed hyperlipidemia[ICD10: E78.2] Diagnosis: Other hemoglobinopathies[ICD10: D58.2] Marcela Ha MD, [facility] CPT-4: 02223 05/23/2016 ([id number]) 73830 EST. PATIENT, LEVEL IV Diagnosis: Type 2 diabetes mellitus with other specified complication[ICD10: E11.69] Diagnosis: Dehydration[ICD10: E86.0] [facility] CPT-4: 81550 05/15/2016 ([id number]) OFFICE VISIT, NEW - LEVEL 3 Diagnosis: Allergic contact dermatitis due to plants, except food[ICD10: L23.7] Madeline Ha MD, [facility] CPT-4: 73072 01/20/2016 Plan of Care Planned Activity Notes Codes Status Date Visit Plan: Diabetes Mellitus - controlled - [...] in blood pressure readings at home. 06/18/2018 Patient Education: Patient Medication Summary Completed [...] swelling improves. 06/04/2018 Appointment: Melida Ha WPtel: [phone] [facility] (15 min) Moderate 06/04/2018 Patient Education: Patient [...] allow for greater blood glucose control. Joint muej-chudmtrh-qxcncqw- symptoms have improved -stop meloxicam due to upset stomach-call if symptoms return 05/13/2018 Appointment: Marcela Oshea WPtel: [phone] [phone] (30 min) Complex 05/13/2018 Patient Education: Patient Medication Summary Completed 05/13/2018 Visit Plan: Bilateral hip esuh-siujjiim-obdpgmy IM injection administered today for c/o continued myalgia/arthralgia. Patient to start taking Meloxicam 15mg PO daily. Advised to return to clinic if symptoms do not improve. 05/02/2018 Appointment: Marcela Oshea WPtel: [facility][note 3]1 [phone] (30 min) Complex 05/02/2018 Patient Education: [...] readings at home. Diabetes Mellitus -check labs Zeasnhnv-fdlzmqo-lxvx bite-rx for doxycycline-follow up in 2 weeks 04/29/2018 Appointment: Marcela Oshea WPtel: [phone] [phone] (15 min) Moderate 04/29/2018 Patient Education: Patient Medication Summary Completed 04/29/2018 Appointment: Melida Ha WPtel: [phone] [facility] (15 min) Moderate 04/15/2018 Appointment: Marcela Oshea WPtel: [phone] [phone] (30 min) Complex 03/21/2018 Visit Plan: [...] on cymbalta 03/13/2018 Appointment: Melida Ha WPtel: [facility]note 3]4 [facility] (30 min) Complex 03/13/2018 Patient Education: Patient Medication Summary Completed 03/13/2018 Visit Plan: DM-continue same medications-monitor blood sugars routinely as directed -rx for new glucometer and test strips provided Bipolar-currently depressed-patient start on vraylar-follow up in 2 weeks, sooner if needed. Patient and verbalied understanding of plan. Hypotension- stay off losartan 03/07/2018 Appointment: Marcela Oshea WPtel: [phone] [phone] [place] (30 min) Complex 03/07/2018 Patient Education: Patient Medication Summary Completed 03/07/2018 Appointment: Melida Ha WPtel: [phone] [facility] (15 min) Moderate 03/04/2018 Visit Plan: Hypotension-continue [...] patient. 02/28/2018 Appointment: Marcela Oshea WPtel: [phone] [phone] [place] (30 min) Complex 02/28/2018 Patient [...] improving. 02/13/2018 Appointment: Madeline Kennedy WPtel: [phone] [facility] [place] (15 min) Moderate 02/13/2018 Patient Education: Patient Medication Summary Completed 02/13/2018 Referral: Sun Glynn Patient informed. Referral info faxed. Completed Visit Plan: DM-weight loss-not checking blood sugars- patient sent for labs today HTN-low hpjai-whdxpkh-duxdo labs Callus of foot and fissue of heel-refer to Dr Glynn for evaluation Esophageal Reflux - the patient has been counseled against excessive intake of caffeine, spicy foods, peppermint , and cinnamon - all of which can exacerbate esophageal reflux. The patient is to take medications as prescribed and call the office if the symptoms are not improving. 01/29/2018 Appointment: Marcela Oshea WPtel: [facility][note 3]0 [phone] [place] (30 min) Complex 01/29/2018 Patient Education: Patient Medication Summary Completed 01/29/2018 Care Plan: Comp Metabolic Cancelled 01/29/2018 Care Plan: Cbc With Differential Cancelled 01/29/2018 Care Plan: %Hba1C LOINC : 98903-4 Cancelled 01/29/2018 Care Plan: Referral Order SNOMED-CT : [id number] Cancelled 01/29/2018 Visit Plan: Fatigue, malaise, joint [...] or concerns. 08/27/2017 Appointment: [phone] [place] (15 min) Moderate 08/27/2017 Patient Education: [...] today - 08/16/2017 Appointment: Melida Ha WPtel: [phone] [facility] (30 min) Complex 08/16/2017 Patient Education: Patient Medication Summary Completed 08/16/2017 Patient Education: Obesity Completed 08/16/2017 Appointment: Madeline Kennedy WPtel: [phone] [facility] (30 min) Complex 08/07/2017 Visit Plan: [...] contagious. 07/26/2017 Appointment: Madeline Kennedy WPtel: [phone] [facility] (15 min) Moderate 07/26/2017 Patient Education: Patient Medication Summary Completed 07/26/2017 Visit Plan: Cellulitis right foot-cultured today in the office-home health to reapply wound vac--appt with wound care on to evaluate for debridement- 07/03/2017 Appointment: Marcela Oshea WPtel: [facility][note 3] [phone] [place] (30 min) Complex 07/03/2017 Patient Education: Patient Medication Summary Completed 07/03/2017 Visit Plan: Abrasion left arm - Pt was instructed to keep the wound clean, wash with antibacterial soap, use triple antibiotic ointment, call if redness, pustular drainage, or any other acute concerns. 06/29/2017 Appointment: Marcela Oshea WPtel: [facility][note 3] [phone] [place] (15 min) Moderate 06/29/2017 Patient Education: [...] of plan. 06/18/2017 Appointment: Marcela Oshea WPtel: [facility]note 3]5 [phone] (15 min) Moderate 06/18/2017 Patient Education: [...] diet-start prilosec 06/07/2017 Appointment: Marcela Oshea WPtel: [facility]note 3]5 [phone] (10 min) Simple 06/07/2017 Patient Education: [...] bite-continue doxycycline 05/17/2017 Appointment: Marcela Oshea WPtel: [facility][note 3]8 [phone] (30 min) Complex 05/17/2017 Patient Education: [...] if you want anai edge called into [facility]. 05/04/2017 Appointment: Marcela Oshea WPtel: [phone] [phone] [place] [address] (30 min) Complex 05/04/2017 Patient Education: Patient [...] home. Cough-resolved 03/15/2017 Appointment: Marcela Oshea WPtel: [facility][note 3]3 [phone] (15 min) Moderate 03/15/2017 Patient Education: Patient Medication Summary Completed 03/15/2017 Appointment: Marcela Oshea WPtel: [phone] [phone] (30 min) Complex 03/12/2017 Visit Plan: [...] discussed 02/16/2017 Appointment: Marcela Oshea WPtel: [phone] (15 min) Moderate 02/16/2017 Patient Education: [...] controlled. 02/12/2017 Appointment: Marcela Oshea WPtel: [phone] (30 min) Complex 02/12/2017 Patient Education: Patient Medication Summary Completed 02/12/2017 Appointment: Marcela Oshea WPtel: [phone] (30 min) Complex 02/06/2017 Visit Plan: [...] consider 02/05/2017 Appointment: Marcela Oshea WPtel: [phone] [place] [phone] (30 min) Complex 02/05/2017 Patient Education: Patient Medication Summary Completed 02/05/2017 Appointment: Marcela Oshea WPtel: [phone] [phone] [place] (30 min) Complex 01/30/2017 Visit Plan: Acute confusion-uncontrolled diabetes- chronically noncompliant with treatment and stopped his insulin several months ago-r/o stroke vs DKA-Dr Ha in to evaluate patient-plan to admit for further work up and treatment-patient's called and she transported him to the hospital 01/29/2017 Appointment: Marcela Oshea WPtel: [phone] [phone] [place] (30 min) Complex 01/29/2017 Patient Education: Patient Medication Summary Completed 01/29/2017 Patient Education: Obesity Completed 01/29/2017 Visit Plan: Right foot pain-MRI shows foreign body-appt with Dr Grewal for evaluation on Sunday. 10/13/2016 Appointment: Marcela Oshea WPtel: [facility][note 3]8 [phone] [place] (15 min) Moderate 10/13/2016 Patient Education: Patient Medication Summary Completed 10/13/2016 Appointment: Marcela Oshea WPtel: [facility][note 3]5 [phone] [place] (30 min) Complex 10/12/2016 Visit Plan: Right foot txdx-qmdivdxv-vityd washer dropped on foot-xray negative but pain continues to increase-recommend MRI of foot for further evaluation-refer to wound care for lesions on right foot, patient has diabetes and history of osteomyelitis-culture obtained today-continue oral abx- follow up in the office on , sooner if needed 10/09/2016 Visit Plan: Right foot gocl-xaqcyien-ogtdj washer dropped on foot-xray negative but pain continues to increase-recommend MRI of foot for further evaluation-refer to wound care for lesions on right foot, patient has diabetes and history of osteomyelitis-culture obtained today-continue oral abx- follow up in the office on , sooner if needed 10/09/2016 Visit Plan: Right foot tfgw-hbyrgybv-oyjda washer dropped on foot-xray negative but pain continues to increase-recommend MRI of foot for further evaluation-refer to wound care for lesions on right foot, patient has diabetes and history of osteomyelitis-culture obtained today-continue oral abx- follow up in the office on , sooner if needed 10/09/2016 Appointment: Marcela Oshea WPtel: [address] [place], [place] [phone] [place] [address] (30 min) Complex 10/09/2016 Patient Education: Patient Medication Summary Completed 10/09/2016 Visit Plan: Cellulitis - continue with oral antibiotics as previously directed, return to clinic as previously directed, call for acute change in symptoms, worsening redness, warmth, discharge. 10/06/2016 Appointment: Marcela Oshea WPtel: [address] [place], [place] [phone] [place] [address] (10 min) Simple 10/06/2016 Patient Education: Patient Medication Summary Completed 10/06/2016 Appointment: Marcela Oshea WPtel: [address] [place] [address] (30 min) Complex 08/24/2016 Referral: Sun Glynn Referral Completed 07/21/2016 Visit Plan: Low back pain- history of spinal fusion- patient for xray lumbar spine-RX sent to [facility] and instructed on use-topical voltaren samples provided and instructed on use. Ok to use tylenol as needed as well. The patient is to call the office if the pain is worsening or does not improve. Pressure ulcer left 4th toe-refer to Dr Glynn for evaluation 07/18/2016 Appointment: Marcela Oshea WPtel: [address] [place], [place] [phone] (30 min) Complex 07/18/2016 Patient Education: Patient Medication Summary Completed 07/18/2016 Patient Education: Obesity Completed 07/18/2016 Care Plan: Referral Order SNOMED-CT : [id number] Cancelled 07/18/2016 Visit Plan: Diabetes Mellitus - [...] control. 06/22/2016 Appointment: [phone] (30 min) Complex 06/22/2016 Patient Education: Patient [...] today 05/23/2016 Appointment: Marcel[facility]she[phone] [phone] (30 min) Complex 05/23/2016 Patient Education: [...] Patient verbalized understanding of plan. 05/15/2016 Appointment: Dayo Marcela WPtel: [facility]note 3]1 [phone] [place] (15 min) Moderate 05/15/2016 Patient [...] if you want blue goo called into [facility]. 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 Low back pain- history of spinal fusion-patient for xray lumbar spine-RX sent to [facility] and instructed on use-topical voltaren samples provided and instructed on use. Ok to use tylenol as needed as well. The patient is to call the office if the pain is worsening or does not improve. Pressure ulcer left 4th toe-refer to Dr Renard for evaluation . Abrasion left arm - [...] for fracture from injury . Right foot zpal-kpkyhtre-gejlo washer dropped on foot-xray negative but pain [...] for fracture from injury . Right foot yaka-agnendvi-xafku washer dropped on foot-xray negative but pain [...] for fracture from injury . Right foot fcmk-iwuqowyy-htrkx washer dropped on foot-xray negative but pain continues to increase-recommend MRI of foot for further evaluation-refer to wound care for lesions on right foot, patient has diabetes and history of osteomyelitis-culture obtained today-continue oral abx-follow up in the office on , sooner if needed . Bilateral hip zhug-doscysuh-uedebih IM injection administered today for c/o continued myalgia/arthralgia. Patient to start taking Meloxicam 15mg PO daily. Advised to return to clinic if symptoms do not improve. . DM-weight loss-not checking blood sugars-patient sent for labs today HTN-low nowsn-dldmvzq-woxfs labs Callus of foot and fissue of [...] readings are starting to become less controlled. [place]-fxbamyed-gljqzdfr to monitor Generalized weakness-refer for PT-patient refuses [...] allow for greater blood glucose control. Joint umhs-dbianzbq-ssbmmeg-symptoms have improved -stop meloxicam due to upset [...] readings at home. Diabetes Mellitus -check labs Bvzuwpep-wkwqyzy-jxyb bite-rx for doxycycline-follow up in 2 weeks [...]
[2018-10-20 11:46] LABS: BASOPHILS % (AUTO) 0 % (0-10); EOSINOPHILS # (AUTO) 0.1 10^3/uL (0.0-0.3); EOSINOPHILS % (AUTO) 1 % (0-10); HEMATOCRIT 39 % (40-54); HEMOGLOBIN 13.2 G/DL (13.3-17.7); LYMPHOCYTES # (AUTO) 2.3 X 10^3 (1.0-4.0); LYMPHOCYTES % (AUTO) 31 % (12-44); MEAN CORPUSCULAR HEMOGLOBIN 30 PG (25-34); MEAN CORPUSCULAR HGB CONC 34 G/DL (32-36); MEAN CORPUSCULAR VOLUME 89 FL (80-99); MEAN PLATELET VOLUME 9.8 FL (7.4-10.4); MONOCYTES # (AUTO) 0.6 X 10^3 (0.0-1.0); MONOCYTES % (AUTO) 7 % (0-12); NEUTROPHILS # (AUTO) 4.7 X 10^3 (1.8-7.8); NEUTROPHILS % (AUTO) 61 % (42-75); PLATELET COUNT 139 10^3/uL (130-400); RED BLOOD COUNT 4.34 10^6/uL (4.35-5.85); RED CELL DISTRIBUTION WIDTH 14.9 % (10.0-14.5); WHITE BLOOD COUNT 7.6 10^3/uL (4.3-11.0)
[2018-10-20 11:59] LABS: INR 0.9 (0.8-1.4)
[2018-10-20 12:05] LABS: ALANINE AMINOTRANSFERASE 86 U/L (0-55); ALBUMIN 3.6 GM/DL (3.2-4.5); ALKALINE PHOSPHATASE 84 U/L (40-136); BILIRUBIN,TOTAL 1.5 MG/DL (0.1-1.0); BUN/CREATININE RATIO 25; CALCIUM 9.3 MG/DL (8.5-10.1); CARBON DIOXIDE 29 MMOL/L (21-32); CHLORIDE 102 MMOL/L (98-107); CREATININE SERUM 0.95 MG/DL (0.60-1.30); GFR ESTIMATED > 60; GLUCOSE 160 MG/DL (70-105); POTASSIUM 4.4 MMOL/L (3.6-5.0); SODIUM 138 MMOL/L (135-145); TOTAL PROTEIN 6.5 GM/DL (6.4-8.2); URIC ACID 3.8 MG/DL (2.6-7.2)
[2018-10-20 12:11] LABS: ERYTHROCYTE SEDIMENTATION RATE 15 MM/HR (0-30)
--- NOTE | 2018-10-20 12:14 | Diagnostic Imaging Report ---
INDICATION: Pain and swelling to right hand. FINDINGS: 3 views. There are no fractures or dislocations. Articulating surfaces are smooth. No evidence of periarticular erosion. There is soft tissue swelling over the dorsum of the hand. IMPRESSION: Soft tissue swelling with no bony abnormalities demonstrated. Dictated by: Dictated on workstation # [id number]
[2018-10-20] MEDS ORDERED: cefTRIAXone FOR IV USE 1,000 MG in NS (IVPB) 50 ML IV ONE (13:00)
[2018-10-20] MEDS ORDERED: CEPH-507 PO (13:05)
--- NOTE | 2018-10-20 13:05 | ED Upper Extremity ---
General Chief Complaint: Upper Extremity Stated Complaint: RIGHT HAND SWELLING Nursing Triage Note: PT REPORTS SWELLING TO RIGHT HAND THAT HAS GOTTEN WORSE OVERNIGHT. PT REPORTS HIS HAND IS NUMB AND FEELS LIKE IT HAS FALLEN ASLEEP. NO PUNCTURE WOUND PRESENT. Nursing Sepsis Screen: No Definite Risk Source: patient Exam Limitations: no limitations History of Present Illness Date Seen by Provider: Oct 20, 2018 Time Seen by Provider: 11:30 Initial Comments Patient is a 58-year-old male who presents to the emergency room with signs of redness and swelling to the right hand that has gotten worse overnight. Patient reports that he was working on a tractor yesterday but does not recall causing a scratch and abrasion to the hand. He has had numerous ear infections in the past requiring amputation to the toes. He did ayana the redness last night before he went to bed with a skin marker and the redness has grown outside of the marking throughout the night. Onset: yesterday Pain/Injury Location: right hand Method of Injury: unknown Allergies and Home Medications Allergies Coded Allergies: linezolid (Verified Allergy, Unknown, 05/28/18) Home Medications Aspirin 81 Mg Tablet.dr, 81 MG PO DAILY Prescribed by: ROSA MARIA HA on 05/31/18 1042 Atorvastatin Calcium 80 Mg Tablet, 80 MG PO HS Prescribed by: ROSA MARIA HA on 05/31/18 1042 Carvedilol 6.25 Mg Tablet, 6.25 MG PO BID Prescribed by: ROSA MARIA HA on 05/31/18 1042 Cefepime HCl/D5w 2 Gm/50 Ml Piggyback, 2 GM IV BID LAST DOSE DUE ON 06/07/18 Prescribed by: RED ABREU on 05/30/18 1435 Cephalexin 500 Mg Capsule, 500 MG PO Q6H Prescribed by: EARNEST MULLINS on 10/20/18 1305 Clonazepam 1 Mg Tablet, 2 MG PO HS, (Reported) TAKES 2 (1 MG) TABLETS Duloxetine HCl 30 Mg Capsule.dr, 30 MG PO DAILY, (Reported) Insulin Aspart 100 Unit/1 Ml Susp, 10 UNIT SQ AC Prescribed by: ROSA MARIA HA on 05/31/18 1042 Insulin Glargine,Hum.rec.anlog 300 Unit/1 Ml Insuln.pen, 50 UNIT SQ DAILY, ( Reported) Metronidazole 500 Mg Tablet, 500 MG PO TID Prescribed by: ROSA MARIA HA on 05/31/18 1050 Metronidazole/Sodium Chloride 500 Mg/100 Ml Piggyback, 500 MG IV Q8HR LAST DOSE DUE ON 06/07/18 Prescribed by: RED ABREU on 05/30/18 1435 Pregabalin 50 Mg Capsule, 50 MG PO DAILY, (Reported) Ticagrelor 90 Mg Tablet, 90 MG PO BID Prescribed by: ROSA MARIA HA on 05/31/18 1042 Vancomycin HCl in Dextrose 5 % 1.25 Gm/250 Ml Plast..bag, 1.25 GM IV BID LAST DOSE DUE ON 06/07/18 Prescribed by: RED ABREU on 05/30/18 1435 Patient Home Medication List Home Medication List Reviewed: Yes Review of Systems Constitutional: no symptoms reported, see HPI Musculoskeletal: see HPI, joint swelling Skin: see HPI, other (reddness and swelling to right hand. ) All Other Systems Reviewed Negative Unless Noted: Yes Past Rkzqayv-Vxstfl-Oogokr Hx Past Med/Social Hx: Reviewed Nursing Past Med/Soc Hx Patient Social History Alcohol Use: Denies Use Recreational Drug Use: No 2nd Hand Smoke Exposure: No Recent Foreign Travel: No Contact w/Someone Who Travel: No Recent Infectious Disease Expo: No Recent Hopitalizations: Yes (MAY 2018) Physical Abuse: No Sexual Abuse: No Immunizations Up To Date Tetanus Booster (TDap): Unknown PED Vaccines UTD: No Date of Pneumonia Vaccine: Jan 02, 2011 Date of Influenza Vaccine: Aug 05, 2013 Seasonal Allergies Seasonal Allergies: No Past Medical History Surgeries: Yes (ACL; Wrist; Heart stents) Abdominal, Amputation, Appendectomy, Gallbladder, Orthopedic, Tonsillectomy Respiratory: No Currently Using CPAP: No Currently Using BIPAP: No Cardiac: Yes (Heart stents) Coronary Artery Disease, Heart Attack, High Cholesterol, Hypertension Neurological: Yes Neuropathy, Stroke Reproductive Disorders: No Sexually Transmitted Disease: No HIV/AIDS: No Genitourinary: No Kidney Stones Gastrointestinal: Yes Abdominal Hernia Musculoskeletal: Yes (OSTEOMYELITIS WITH MULTIPLE TOE AMPUTATIONS, BACK FUSION X3) Degenerate Disk Disease, Arthritis, Chronic Back Pain Endocrine: Yes Diabetes, Insulin dep HEENT: No Loss of Vision: Bilateral Hearing Impairment: Denies Cancer: No Psychosocial: Yes Anxiety, Depression Integumentary: No Blood Disorders: No Adverse Reaction/Blood Tranf: No Family Medical History Reviewed Nursing Family Hx Family history: Cardiovascular disease 19 FATHER Family history: Diabetes mellitus 19 MOTHER Heart Disease, Diabetes, Hypertension, Psychiatric Problems, Renal Disease, Vascular Disease Physical Exam Vital Signs Vital Signs - First Documented 10/20/18 11:25 Temp 97.6 Pulse 89 Resp 14 B/P (MAP) 94/70 (78) Pulse Ox 98 Capillary Refill : Less Than 3 Seconds Height, Weight, BMI Height: 6'4.00" Weight: 250lbs. 0.0oz. 113.932128mo; 31.5 BMI Method:Stated General Appearance: WD/WN, no apparent distress HEENT: PERRL/EOMI, normal ENT inspection, TMs normal, pharynx normal Cardiovascular: normal peripheral pulses, regular rate, rhythm, no edema, no gallop, no JVD, no murmur Respiratory: chest non-tender, lungs clear, normal breath sounds, no respiratory distress, no accessory muscle use Hand: Right, swelling Neurologic/Psychiatric: alert, oriented x 3 Skin: normal color, warm/dry Progress/Results/Core Measures Results/Orders Lab Results My Orders Vital Signs/I&O Blood Pressure Mean: 78 Progress Progress Note : Time: 13:03 Progress Note I have seen and evaluated the patient. I have informed him of his laboratory and imaging studies. Given his history of cellulitis I will be giving him a dose of IV antibiotics and a course of oral for 7 days. He agrees with plan of care, plans for close follow up, return precautions were given. Diagnostic Imaging Diagonstic Imaging: Xray Plain Films/CT/US/NM/MRI: hand Comments NAME: LUIS BARRERA [facility] REC#: [id number] PHYSICIAN: EARNEST MULLINS CC: HARMONY MULLINS ERIC D MD Page 1 of 1 RADIOLOGY REPORT [facility] [place] CC: HARMONY MULLINS ERIC D MD Page 1 of 1 RADIOLOGY REPORT NAME: LUIS BARRERA [facility] REC#: [id number] PT STATUS: DEP ER : [id number] PHYSICIAN: EARNEST MULLINS ADMIT DATE: 10/20/18/ER Signed Date of Exam: 10/20/18 HAND, RIGHT, 3 VIEWS INDICATION: Pain and swelling to right hand. FINDINGS: 3 views. There are no fractures or dislocations. Articulating surfaces are smooth. No evidence of periarticular erosion. There is soft tissue swelling over the dorsum of the hand. IMPRESSION: Soft tissue swelling with no bony abnormalities demonstrated. Dictated by: Dictated on workstation # [id number] Dict: 10/20/18 1209 Trans: 10/20/18 1534 Interpreted by: MICHEL MAJOR MD Electronically signed by: MICHEL MAJOR MD 10/20/18 1534 Reviewed: Reviewed by Me Departure Impression Primary Impression: Cellulitis of right hand Disposition: HOME, SELF-CARE Condition: Stable/Unchanged Departure-Patient Inst. Decision time for Depature: 13:03 Referrals: ROSA MARIA HA MD (PCP/Family) Primary Care Physician Patient Instructions: Cellulitis (Skin Infection), Adult (DC) Add. Discharge Instructions: Take medications as directed. Follow-up with Dr. Ha's office as scheduled on 10/23/18 for a recheck. Return back to the emergency room for any worsening symptoms, pain, fever, red streaks going up the arm, or any other concerns as needed. All discharge instructions reviewed with patient and/or family. Voiced understanding. Scripts Cephalexin (Keflex) 500 Mg Capsule 500 MG PO Q6H for 7 Days, #28 CAP Prov: EARNEST MULLINS 10/20/18 Images Extremities-Upper 1 - Cellulitis, Swelling, Tenderness EARNEST MULLINS Oct 20, 2018 13:05
[2018-10-20 13:35] VITALS: BP 94/70
== END 2018-10-20 13:35 | disposition home or self-care (01) ==
LOC: EDUNIT# 10:30 → ER 10:31
DX: L03.113 Cellulitis of right upper limb (principal); I25.10 Atherosclerotic heart disease of native coronary artery without angina pectoris; I25.2 Old myocardial infarction; E78.00 Pure hypercholesterolemia, unspecified; I10 Essential (primary) hypertension; E11.40 Type 2 diabetes mellitus with diabetic neuropathy, unspecified; F41.9 Anxiety disorder, unspecified; F32.9 Major depressive disorder, single episode, unspecified; Z98.1 Arthrodesis status; Z87.442 Personal history of urinary calculi; Z82.49 Family history of ischemic heart disease and other diseases of the circulatory system; Z86.73 Personal history of transient ischemic attack (TIA), and cerebral infarction without residual deficits; Z88.8 Allergy status to other drugs, medicaments and biological substances; Z79.82 Long term (current) use of aspirin; Z79.4 Long term (current) use of insulin; Z95.5 Presence of coronary angioplasty implant and graft; Z90.89 Acquired absence of other organs
CPT/HCPCS: 36415; 73130; 80053; 83605; 84550; 85025; 85610; 85652; 85730; 86141; 87040

== ENCOUNTER → 2018-11-07 | Outpatient (CLI) | payer OTHER ==
[~2018-11-07] MED LIST changes: +CEPH-507 PO
--- NOTE | 2018-11-07 15:45 | Diagnostic Imaging Report ---
EXAMINATION: PA and lateral chest at 02:14 p.m. INDICATION: Cough and congestion. FINDINGS: The heart size is within normal limits and stable when compared to 10/14/2018. The lungs remain clear. There is still no sign of failure, pneumonia, or pleural effusion to indicate an acute abnormality. The mediastinum is not widened. The osseous structures are intact. IMPRESSION: There is no evidence for an acute cardiopulmonary abnormality. When compared to the prior study, there has been no adverse change. Dictated by: Dictated on workstation # [id number]
== END ==
LOC: RAD 13:39
PROVIDERS: ATTEND Nurse Practitioner Family
DX: R05 Cough (principal); R09.89 Other specified symptoms and signs involving the circulatory and respiratory systems
CPT/HCPCS: 71046

== ENCOUNTER → 2018-11-14 | Outpatient (CLI) | payer OTHER ==
[~2018-11-14] MED LIST changes: +IOHEXOL 350 MG/ML 100 ML (OMNIPAQUE 350) VIAL IV ONE; +NS 100 ML (IVPB) BAG IV ONE; +RECEIVED CONTRAST (Hold Metformin) IV SCH
--- NOTE | 2018-11-14 15:29 | Diagnostic Imaging Report ---
PROCEDURE: CT chest with contrast only. TECHNIQUE: Multiple contiguous axial images were obtained through the chest after administration of intravenous contrast. INDICATION: Cough and shortness of breath. COMPARISON: Comparison is made with prior CT chest from 10/26/2013. FINDINGS: No axillary lymphadenopathy is detected. No definite hilar or mediastinal lymphadenopathy is seen. No pericardial or pleural fluid is identified. Central airways are patent. Lungs appear to be clear. No infiltrates, nodules, or masses are seen. The upper abdomen is unremarkable. IMPRESSION: Unremarkable CT of the chest. No thoracic lymphadenopathy or pulmonary mass is detected. Dictated by: Dictated on workstation # [id number]
== END ==
LOC: RAD 14:09
PROVIDERS: ATTEND Nurse Practitioner Family
DX: R06.02 Shortness of breath (principal); R05 Cough
CPT/HCPCS: 71260

== ENCOUNTER 2018-11-25 08:00 | Outpatient (RCR) | payer OTHER ==
[~2018-11-25 08:00] MED LIST changes: -DULO30CA48 PO; +DULO30CA49 PO; -IOHEXOL 350 MG/ML 100 ML (OMNIPAQUE 350) VIAL IV ONE; +LOSA25TA41 PO; -LOSA25TA6 PO; +METR-145 PO; -METR-197 PO; -NS 100 ML (IVPB) BAG IV ONE; -RECEIVED CONTRAST (Hold Metformin) IV SCH; -ROSU10TA27 PO; +ROSU10TA28 PO
[2019-01-02] MEDS ORDERED: VALS80TA31 PO ×2 (11:08→14:02)
[2019-01-02] MEDS ORDERED: AMOX1TAB11 PO (14:02)
[2019-01-02] MEDS ORDERED: ATOR80TA64 PO (14:02)
[2019-01-02] MEDS ORDERED: INSU200I4 SC (14:02)
[2019-01-02] MEDS ORDERED: INSU100I14 SC (14:02)
[2019-01-02] MEDS ORDERED: PANT40TA3 PO (14:02)
[2019-01-02] MEDS ORDERED: MULT-633 PO (14:05)
[2019-01-02] MEDS ORDERED: ACET-2267 PO (14:09)
[2019-01-03] MEDS ORDERED: VALS80TA31 PO (09:53)
[2019-01-03] MEDS ORDERED: Nitroglycerin SL (09:53)
[2019-04-09] MEDS ORDERED: CARV3.122 PO (09:35)
[2019-04-09] MEDS ORDERED: ISOS30TA3 PO (09:35)
[2019-04-24] MEDS ORDERED: ATOR80TA76 PO (15:31)
[2019-04-24] MEDS ORDERED: TICA90TA PO (15:31)
[2019-04-24] MEDS ORDERED: NITR0.4T39 SL (15:31)
[2019-04-24] MEDS ORDERED: ISOS30TA3 PO (15:31)
[2019-04-24] MEDS ORDERED: ASPI-983 PO (15:31)
[2019-04-24] MEDS ORDERED: DULO30CA49 PO (15:31)
[2019-04-27] MEDS ORDERED: DULO30CA3 PO (12:47)
[2019-04-27] MEDS ORDERED: PANT40TA2 PO (12:47)
[2019-04-28] MEDS ORDERED: CARV6.252 PO (09:41)
[2019-04-28] MEDS ORDERED: CLOP75TA28 PO (09:41)
[2019-04-28] MEDS ORDERED: RANO500T3 PO (09:41)
[2019-04-28] MEDS ORDERED: ENAL5TAB PO (09:41)
[2019-04-28] MEDS ORDERED: ASPI-999 PO (09:41)
[2019-06-17] MEDS ORDERED: DOXY100C2 PO (09:04)
[2019-06-17] MEDS ORDERED: ASPI-999 PO (09:04)
[2019-06-17] MEDS ORDERED: ENAL5TAB PO (09:04)
[2019-06-17] MEDS ORDERED: RANO500T5 PO (09:04)
[2019-06-17] MEDS ORDERED: CLOP75TA69 PO (09:04)
== END 2019-06-30 | disposition home or self-care (01) ==
LOC: DSME 08:00
PROVIDERS: ATTEND Family Medicine
DX: E11.40 Type 2 diabetes mellitus with diabetic neuropathy, unspecified (principal); E11.51 Type 2 diabetes mellitus with diabetic peripheral angiopathy without gangrene; E11.21 Type 2 diabetes mellitus with diabetic nephropathy; I25.10 Atherosclerotic heart disease of native coronary artery without angina pectoris; Z79.4 Long term (current) use of insulin

== ENCOUNTER → 2018-12-26 | Outpatient (CLI) | payer OTHER ==
[~2018-12-26] MED LIST changes: +DULO30CA48 PO; -DULO30CA49 PO; +ROSU10TA27 PO; -ROSU10TA28 PO
[2018-12-26 12:34] LABS: BASOPHILS % (AUTO) 0 % (0-10); EOSINOPHILS # (AUTO) 0.1 10^3/uL (0.0-0.3); EOSINOPHILS % (AUTO) 1 % (0-10); HEMATOCRIT 43 % (40-54); HEMOGLOBIN 14.5 G/DL (13.3-17.7); LYMPHOCYTES % (AUTO) 28 % (12-44); MEAN CORPUSCULAR HEMOGLOBIN 31 PG (25-34); MEAN CORPUSCULAR HGB CONC 34 G/DL (32-36); MEAN CORPUSCULAR VOLUME 91 FL (80-99); MEAN PLATELET VOLUME 10.2 FL (7.4-10.4); MONOCYTES # (AUTO) 0.8 X 10^3 (0.0-1.0); MONOCYTES % (AUTO) 11 % (0-12); NEUTROPHILS # (AUTO) 4.4 X 10^3 (1.8-7.8); NEUTROPHILS % (AUTO) 60 % (42-75); PLATELET COUNT 168 10^3/uL (130-400); RED CELL DISTRIBUTION WIDTH 13.9 % (10.0-14.5); WHITE BLOOD COUNT 7.2 10^3/uL (4.3-11.0)
[2018-12-26 12:49] LABS: ALANINE AMINOTRANSFERASE 25 U/L (0-55); ALBUMIN 3.9 GM/DL (3.2-4.5); ALKALINE PHOSPHATASE 101 U/L (40-136); BILIRUBIN,TOTAL 1.7 MG/DL (0.1-1.0); BUN/CREATININE RATIO 16; CALCIUM 9.7 MG/DL (8.5-10.1); CARBON DIOXIDE 28 MMOL/L (21-32); CHLORIDE 104 MMOL/L (98-107); CREATININE SERUM 1.06 MG/DL (0.60-1.30); GFR ESTIMATED > 60; GLUCOSE 122 MG/DL (70-105); POTASSIUM 4.4 MMOL/L (3.6-5.0); SODIUM 140 MMOL/L (135-145); TOTAL PROTEIN 7.1 GM/DL (6.4-8.2)
[2018-12-26 12:55] LABS: CREATINE KINASE MB 3.6 NG/ML (<6.6)
== END ==
LOC: CARD 12:17
PROVIDERS: ATTEND Nurse Practitioner Family
DX: R07.9 Chest pain, unspecified (principal); M79.602 Pain in left arm
CPT/HCPCS: 36415; 80053; 82553; 84484; 85025; 93005

== ENCOUNTER 2019-01-01 12:41 | Observation (INO) | payer OTHER ==
[~2019-01-01] VITALS: Ht 193 cm; Wt 117.9 kg
[2019-01-01] MEDS ORDERED: ASPIRIN 81 MG CHEW (CHILDREN'S ASA) ONE (12:54)
[2019-01-01 12:58] LABS: BASOPHILS % (AUTO) 0 % (0-10); EOSINOPHILS # (AUTO) 0.1 10^3/uL (0.0-0.3); EOSINOPHILS % (AUTO) 1 % (0-10); HEMATOCRIT 40 % (40-54); HEMOGLOBIN 13.6 G/DL (13.3-17.7); LYMPHOCYTES # (AUTO) 2.1 X 10^3 (1.0-4.0); LYMPHOCYTES % (AUTO) 22 % (12-44); MEAN CORPUSCULAR HEMOGLOBIN 31 PG (25-34); MEAN CORPUSCULAR HGB CONC 34 G/DL (32-36); MEAN CORPUSCULAR VOLUME 90 FL (80-99); MEAN PLATELET VOLUME 10.5 FL (7.4-10.4); MONOCYTES # (AUTO) 1.1 X 10^3 (0.0-1.0); MONOCYTES % (AUTO) 12 % (0-12); NEUTROPHILS # (AUTO) 6.3 X 10^3 (1.8-7.8); NEUTROPHILS % (AUTO) 65 % (42-75); PLATELET COUNT 192 10^3/uL (130-400); RED CELL DISTRIBUTION WIDTH 12.7 % (10.0-14.5); WHITE BLOOD COUNT 9.6 10^3/uL (4.3-11.0)
[2019-01-01] MEDS ORDERED: morphine INJ 10 MG/ML 1ML (SYR OR VIAL) ONE (13:19)
[2019-01-01 13:21] LABS: ALANINE AMINOTRANSFERASE 21 U/L (0-55); ALBUMIN 3.8 GM/DL (3.2-4.5); ALKALINE PHOSPHATASE 109 U/L (40-136); AMYLASE 27 U/L (25-125); BILIRUBIN,TOTAL 2.2 MG/DL (0.1-1.0); BUN/CREATININE RATIO 20; CALCIUM 9.6 MG/DL (8.5-10.1); CARBON DIOXIDE 25 MMOL/L (21-32); CHLORIDE 103 MMOL/L (98-107); GFR ESTIMATED > 60; GLUCOSE 147 MG/DL (70-105); LIPASE 35 U/L (8-78); MAGNESIUM 1.6 MG/DL (1.8-2.4); POTASSIUM 4.5 MMOL/L (3.6-5.0); SODIUM 139 MMOL/L (135-145); TOTAL PROTEIN 7.4 GM/DL (6.4-8.2)
[2019-01-01 13:27] LABS: MYOGLOBIN SERUM 125.2 NG/ML (10.0-92.0)
[2019-01-01] MEDS ORDERED: morphine INJ 10 MG/ML 1ML (SYR OR VIAL) IVP ONE (13:30)
--- NOTE | 2019-01-01 13:45 | NUR ---
PT HAS FEELINGS OF IMPENDING DOOM
--- OUTSIDE RECORDS SUMMARY | 2019-01-01 13:56 | XMS REPORT | Clinical Summary ---
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 For more information, please contact: [facility] [address] [place] [address] Date Inactivated Comments Code Status Date Activated 09/08/2013 6:52 PM Full Code 08/30/2013 11:52 PM Provider has discussed Code Status Yes w/Patient or Family? 08/16/2013 7:47 PM Full Code 08/13/2013 5:24 PM Provider has discussed Code Status Yes w/Patient or Family?
--- NOTE | 2019-01-01 13:57 | Diagnostic Imaging Report ---
EXAMINATION: Portable erect AP chest at 1:26 PM. INDICATION: Chest pain. FINDINGS: Allowing for the portable technique of this exam, the heart size is within normal limits and stable when compared to 11/07/2018. The lungs are generally clear. There is still no sign of failure, pneumonia, or pleural effusion. The mediastinum is not widened. The osseous structures are intact. IMPRESSION: 1. Stable chest. There has been no adverse change since the prior exam. 2. Reportedly, CTA of the chest is pending for further evaluation. Dictated by: Dictated on workstation # [id number]
[2019-01-01] MEDS ORDERED: IOHEXOL 350 MG/ML 150 ML (OMNIPAQUE 350) VIAL IV ONE (14:00)
[2019-01-01] MEDS ORDERED: NS 100 ML (IVPB) BAG IV ONE (14:00)
[2019-01-01] MEDS ORDERED: RECEIVED CONTRAST 20 ML VIAL IV SCH (14:00)
--- OUTSIDE RECORDS SUMMARY | 2019-01-01 14:02 | XMS REPORT | CCD ---
Author Author Madeline Kennedy MD, 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 Name Role Phone PP Unavailable CCM Unavailable Summary Purpose Interface Exchange Insurance Providers Payer name Policy type / Coverage type Covered alliance party ID Effective Begin Date Effective End Date [place] [employer] Commercial Insurance [id number] 2018 Unknown Family history Father Diagnosis Age At Onset Hyperlipidemia Unknown Heart Attack Unknown Mother Diagnosis Age At Onset Hypertension Unknown Social History Social History Element Codes Description Effective Dates Marital status Unknown Mignon 01/20/2016 Number of children Unknown 4 01/20/2016 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/[address]: 010323303 Never smoker 01/20/[address]: 411342600 Never drinks alcohol 01/20/2016 Allergies, Adverse Reactions, Alerts Substance Reaction Codes Entered Date Inactivated Date Status * NO KNOWN DRUG ALLERGIES Unknown 05/23/2016 No Inactive Date Active Past Medical History Illness Codes Condition Status Onset Date Resolved Date Epigastric pain ICD-9 : 789.06 ICD-10: R10.13 Active 12/31/2018 Unknown Pain in joints of right hand ICD-9: 719.44 ICD-10: M25.541 Active 10/24/2018 Unknown Shortness of breath ICD-9: 786.05 ICD-10: R06.02 Active 12/31/2018 Unknown Type 2 diabetes mellitus with hyperglycemia ICD-9: 250.00 ICD-10: E11.65 Active 06/21/2016 Unknown Cough ICD-9: 786.2 ICD-10: R05 Active 02/16/2017 Unknown Other chest pain ICD-9 : 786.59 ICD-10: R07.89 Active 12/26/2018 Unknown Pneumonia due to other Gram-negative bacteria ICD-9: 482.83 ICD-10: J15.6 Active 10/30/2018 Unknown Trigger finger, right middle finger ICD-9: 727.03 ICD-10: M65.331 Active 10/24/2018 Unknown Essential (primary) hypertension ICD-9: 401.1 ICD-10: I10 Active 03/01/2017 Unknown Type 2 diabetes mellitus with foot ulcer ICD-9: 250.80 ICD-10: E11.621 Active 10/08/2016 Unknown Cellulitis of right finger ICD-9: 681.00 ICD-10: L03.011 Active 10/21/2018 Unknown Pain in right hand ICD -9: 729.5 ICD-10: M79.641 Active 10/21/2018 Unknown Cellulitis of left lower limb ICD-9: 682.7 ICD-10: L03.116 Active 10/17/2018 Unknown Cellulitis of right lower limb ICD-9: 682.6 ICD-10: L03.115 Active 10/17/2018 Unknown Spontaneous ecchymoses ICD-9: 782.7 ICD-10: R23.3 Active 10/17/2018 Unknown Acute bronchitis, unspecified ICD-9: 466.0 ICD-10: J20.9 Active 10/14/2018 Unknown Acute laryngopharyngitis ICD-9: 465.0 ICD-10: J06.0 Active 06/07/2017 Unknown Acute recurrent maxillary sinusitis ICD-9: 461.0 ICD-10: J01.01 Active 02/16/2017 Unknown Mixed hyperlipidemia ICD-9: 272.2 ICD-10: E78.2 [...] Problems Condition Codes Effective Dates Condition Status Epigastric pain ICD-9 : 789.06 ICD-10: R10.13 12/31/2018 Active Pain in joints of right hand ICD-9: 719.44 ICD-10: M25.541 10/24/2018 Active Shortness of breath ICD-9: 786.05 ICD-10: R06.02 12/31/2018 Active Type 2 diabetes mellitus with hyperglycemia ICD-9: 250.00 ICD-10: E11.65 06/21/2016 Active Cough ICD-9: 786.2 ICD-10: R05 02/16/2017 Active Other chest pain ICD-9 : 786.59 ICD-10: R07.89 12/26/2018 Active Pneumonia due to other Gram-negative bacteria ICD-9: 482.83 ICD-10: J15.6 10/30/2018 Active Trigger finger, right middle finger ICD-9: 727.03 ICD-10: M65.331 10/24/2018 Active Essential (primary) hypertension ICD-9: 401.1 ICD-10: I10 03/01/2017 Active Type 2 diabetes mellitus with foot ulcer ICD-9: 250.80 ICD-10: E11.621 10/08/2016 Active Cellulitis of right finger ICD-9: 681.00 ICD-10: L03.011 10/21/2018 Active Pain in right hand ICD -9: 729.5 ICD-10: M79.641 10/21/2018 Active Cellulitis of left lower limb ICD-9: 682.7 ICD-10: L03.116 10/17/2018 Active Cellulitis of right lower limb ICD-9: 682.6 ICD-10: L03.115 10/17/2018 Active Spontaneous ecchymoses ICD-9: 782.7 ICD-10: R23.3 10/17/2018 Active Acute bronchitis, unspecified ICD-9: 466.0 ICD-10: J20.9 10/14/2018 Active Acute laryngopharyngitis ICD-9: 465.0 ICD-10: J06.0 06/07/2017 Active Acute recurrent maxillary sinusitis ICD-9: 461.0 ICD-10: J01.01 02/16/2017 Active Mixed hyperlipidemia ICD-9: 272.2 ICD-10: E78.2 [...] Start Date Stop Date Status Fill Instructions Protonix 40 mg tablet,delayed release RxNorm: 191420 1 Tablet(s) PO daily 12/31/2018 01/29/2019 Active Tresiba FlexTouch U-200 insulin 200 unit/mL (3 mL) subcutaneous pen RxNorm: 7567490 50 Unit(s) SQ daily 12/31/2018 01/29/2019 Active please give him 30 day supply Augmentin 500 mg-125 mg tablet RxNorm: 491055 1 Tablet(s) PO TID 12/26/2018 01/04/2019 Active Augmentin 500 mg-125 mg tablet RxNorm: 776222 1 Tablet(s) PO TID 12/26/2018 12/25/2018 Inactive ProAir HFA 90 mcg/actuation aerosol inhaler RxNorm: 6173062 2 Puff(s) INH QID as needed 11/18/2018 No Stop Date Active Lyrica 50 mg capsule RxNorm: 390197 Capsule(s) PO daily 201802/08/2019 Active Cymbalta 30 mg capsule,delayed release RxNorm: 097670 1 Capsule(s) PO QAM 11/13/2018 06/10/2019 Active Lyrica 50 mg capsule RxNorm: 337784 Capsule(s) PO daily 201811/12/2018 Inactive Symbicort 160 mcg-4.5 mcg/actuation HFA aerosol inhaler RxNorm: 3368379 2 Puff(s) INH BID 11/12/2018 12/11/2018 Inactive albuterol sulfate 2.5 mg/3 mL (0.083 %) solution for nebulization RxNorm: 991889 3 Milliliter(s) INH UD 11/07/2018 No Stop Date Active azithromycin 500 mg tablet RxNorm: 829009 500mg on day 1 then 250 mg daily x 4 more day Tablet(s) PO 11/07/20182018 Inactive 500mg on day 1 and then 250mg daily 2-4 azithromycin 500 mg tablet RxNorm: 908528 500mg on day 1 then 250 mg daily x 4 more day Tablet(s) PO 11/07/20182018 Inactive 500mg on day 1 and then 250mg daily 2-4 cefdinir 300 mg capsule RxNorm: 818518 1 Capsule(s) PO BID 01/201911/06/2018 Inactive cefdinir 300 mg capsule RxNorm: 861224 1 Capsule(s) PO BID 01/201911/13/2018 Inactive Levaquin 500 mg tablet RxNorm: 582206 1 Tablet(s) PO daily TAKE ONE TABLET BY MOUTH DAILY UNTIL GONE 10/31/20182018 Inactive Levaquin 500 mg tablet RxNorm: 981816 1 Tablet(s) PO daily 11/12/2018 Inactive valsartan 80 mg tablet RxNorm: 517495 1/2 Tablet(s) PO daily 04/20/2019 Active doxycycline hyclate 100 mg tablet RxNorm: 7797926 1 Tablet(s) PO BID 10/21/2018 10/27/2018 Inactive ketorolac 60 mg/2 mL intramuscular solution RxNorm: 8931606 Milliliter(s) IM 10/21/2018 10/21/2018 Inactive Levaquin 500 mg tablet RxNorm: 923678 1 Tablet(s) PO daily 10/31/2018 Inactive Tessalon Perles 100 mg capsule RxNorm: 048206 1-2 Capsule(s) PO TID PRN 10/14/2018 No Stop Date Active albuterol sulfate 2.5 mg/3 mL (0.083 %) solution for nebulization RxNorm: 576866 3 Milliliter(s) INH UD 10/14/201812/2018 Inactive Levaquin 500 mg tablet RxNorm: 352008 1 Tablet(s) PO daily 08/201810/16/2018 Inactive Coreg 6.25 mg tablet RxNorm: 726522 TAKE ONE TABLET BY MOUTH TWICE A DAY 09/30/2018 03/28/2019 Active albuterol sulfate 2.5 mg/3 mL (0.083 %) solution for nebulization RxNorm: 449317 3 Milliliter(s) INH UD 09/30/201807/2018 Inactive Kenalog 40 mg/mL suspension for injection RxNorm: 4803238 1.5 Milliliter(s) Inj 09/30/2018 09/30/2018 Inactive Keflex 500 mg capsule RxNorm: 079956 1 Capsule(s) PO TID 201710/03/2018 Inactive prednisone 20 mg tablet RxNorm: 347257 2 Tablet(s) PO daily 09/29/2018 Inactive Kenalog 40 mg/mL suspension for injection RxNorm: 2683484 Milliliter(s) Inj 09/11/2018 09/11/2018 Inactive Zyrtec 10 mg tablet RxNorm: 1696617 1 Tablet(s) PO daily 09/0910/08/2018 Inactive Keflex 500 mg capsule RxNorm: 522619 1 Capsule(s) PO TID 201709/15/2018 Inactive Tresiba FlexTouch U-200 insulin 200 unit/mL (3 mL) subcutaneous pen RxNorm: 8847960 50 Unit(s) SQ daily 08/30/2018 08/29/2018 Inactive please give him 30 day supply Tresiba FlexTouch U-200 insulin 200 unit/mL (3 mL) subcutaneous pen RxNorm: 4263074 50 Unit(s) SQ daily 08/30/2018 09/28/2018 Inactive please give him 30 day supply Novolog Flexpen U-100 Insulin aspart 100 unit/mL subcutaneous RxNorm: 1762303 8 Unit(s) SQ AC 08/13/2018 No Stop Date Active Novolog Flexpen U-100 Insulin aspart 100 unit/mL subcutaneous RxNorm: 2086253 8 Unit(s) SQ AC 07/22/20182017 Inactive this is an update on his medication Novolog Flexpen U-100 Insulin aspart 100 unit/mL subcutaneous RxNorm: 0514329 12 Unit(s) SQ AC 07/05/20182017 Inactive this is an update on his medication Toujeo SoloStar U-300 Insulin 300 unit/mL (1.5 mL) subcutaneous pen RxNorm: 9503052 INJECT 50 UNITS UNDER THE SKIN DAILY 07/01/2018 08/29/2018 Inactive Mucinex 600 mg tablet, extended release RxNorm: 557373 1 Tablet(s) PO BID 06/28/2018 07/04/2018 Inactive Zofran 4 mg tablet RxNorm: 907779 1 Tablet(s) PO TID as needed nausea 06/28/2018 07/02/2018 Inactive Kenalog 40 mg/mL suspension for injection RxNorm: 8571292 Milliliter(s) Inj 06/28/2018 06/28/2018 Inactive Flonase Allergy Relief 50 mcg/actuation nasal spray, suspension RxNorm: 3303615 1 [place] NASAL BID 06/28/20182017 Inactive Lyrica 50 mg capsule RxNorm: 545847 Capsule(s) PO daily 201707/06/2018 Inactive Novolog Flexpen U-100 Insulin aspart 100 unit/mL subcutaneous RxNorm: 7313566 10 Unit(s) SQ AC 06/18/20182017 Inactive this is an update on his medication Lasix 20 mg tablet RxNorm: 806137 1 Tablet(s) PO BIW 201707/02/2018 Inactive atorvastatin 80 mg tablet RxNorm: 794201 1 Tablet(s) PO QHS 04/201812/06/2018 Inactive clonazepam 1 mg tablet RxNorm: 630609 2 Tablet(s) PO HS 201706/04/2019 Active clonazepam 1 mg tablet RxNorm: 388170 2 Tablet(s) PO HS as needed 06/10/2018 06/09/2018 Inactive Lyrica 50 mg capsule RxNorm: 606427 Capsule(s) PO daily 201707/08/2018 Inactive Lasix 20 mg tablet RxNorm: 1 Tablet(s) PO TIW 201706/11/2018 Inactive Toujeo SoloStar U-300 Insulin 300 unit/mL (1.5 mL) subcutaneous pen RxNorm: 3034899 50 Unit(s) SQ daily 05/07/2018 06/30/2018 Inactive meloxicam 15 mg tablet RxNorm: 791358 15 Milligram(s) PO daily 05/02/2018 05/12/2018 Inactive ketorolac 30 mg/mL injection solution RxNorm: 903473 2 Milliliter(s) Inj 05/02/2018 05/02/2018 Inactive Toujeo SoloStar U-300 Insulin 300 unit/mL (1.5 mL) subcutaneous pen RxNorm: 2778213 45 Unit(s) daily 04/29/2018 Inactive clonazepam 1 mg tablet RxNorm: 349073 1 Tablet(s) PO Q8 as needed 04/29/2018 06/09/2018 Inactive doxycycline hyclate 100 mg tablet RxNorm: 5867274 1 Tablet(s) PO BID 04/29/2018 05/12/2018 Inactive Cymbalta 30 mg capsule,delayed release RxNorm: 438846 1 Capsule(s) PO QAM 03/13/2018 10/08/2018 Inactive Lexapro 10 mg tablet RxNorm: 389757 1 Tablet(s) PO QPM 201703/03/2018 Inactive Toujeo SoloStar U-300 Insulin 300 unit/mL (1.5 mL) subcutaneous pen RxNorm: 3423505 20 Unit(s) daily 02/28/2018 Inactive Protonix 40 mg tablet,delayed release RxNorm: 082282 1 Tablet(s) PO daily 01/29/2018 06/09/2018 Inactive clonazepam 1 mg tablet RxNorm: 091166 1 Tablet(s) PO Q8 as needed 12/12/2017 03/10/2018 Inactive Tamiflu 75 mg capsule RxNorm: 870408 1 Capsule(s) PO BID 201712/03/2017 Inactive doxycycline hyclate 100 mg capsule RxNorm: 0965540 1 Capsule(s) PO BID 09/07/2017 09/20/2017 Inactive doxycycline hyclate 100 mg capsule RxNorm: 0062860 1 Capsule(s) PO BID 08/27/2017 09/06/2017 Inactive prednisone 20 mg tablet RxNorm: 792690 2 Tablet(s) PO daily 08/31/2017 Inactive clopidogrel 75 mg tablet RxNorm: 561418 1 Tablet(s) PO daily 06/09/2018 Inactive atorvastatin 40 mg tablet RxNorm: 541469 1 Tablet(s) PO QHS 02/27/2018 Inactive losartan 25 mg tablet RxNorm: 432445 TAKE ONE TABLET BY MOUTH DAILY 08/22/2017 06/09/2018 Inactive Toujeo SoloStar 300 unit/mL (1.5 mL) subcutaneous insulin pen RxNorm: 9137528 45 Unit(s) daily 08/17/2017 08/20/2017 Inactive mupirocin 2 % topical ointment RxNorm: 702121 1 Application TOP TID to the lesions on chest 08/16/2017 08/25/2017 Inactive Toujeo SoloStar 300 unit/mL (1.5 mL) subcutaneous insulin pen RxNorm: 5047402 40 Unit(s) daily 08/16/2017 08/16/2017 Inactive valacyclovir 1 gram tablet RxNorm: 494443 1 Tablet(s) PO TID 08/01/2017 Inactive clonazepam 1 mg tablet RxNorm: 425656 1 Tablet(s) PO Q8 as needed 07/03/2017 09/30/2017 Inactive Levaquin 500 mg tablet RxNorm: 109732 1 Tablet(s) PO daily 06/25/2017 Inactive Levaquin 500 mg tablet RxNorm: 761054 1 Tablet(s) PO daily 06/21/2017 Inactive losartan 25 mg tablet RxNorm: 952987 1 Tablet(s) PO daily 201608/16/2017 Inactive nystatin 100,000 unit/mL oral suspension RxNorm: 596299 5 Milliliter(s) PO QID Swish et swallow 06/18/2017 06/17/2017 Inactive nystatin 100,000 unit/mL oral suspension RxNorm: 282419 5 Milliliter(s) PO QID Swish et swallow 06/18/2017 06/27/2017 Inactive Cipro 500 mg tablet RxNorm: 137510 1 Tablet(s) PO BID 201606/18/2017 Inactive Cipro 500 mg tablet RxNorm: 867526 1 Tablet(s) PO BID 201606/11/2017 Inactive Toujeo SoloStar 300 unit/mL (1.5 mL) subcutaneous insulin pen RxNorm: 0970422 INJECT 10 UNITS UNDER THE SKIN DAILY 06/12/2017 08/15/2017 Inactive Keflex 500 mg capsule RxNorm: 636415 1 Capsule(s) PO TID 201606/13/2017 Inactive doxycycline hyclate 100 mg capsule RxNorm: 5145585 1 Capsule(s) PO BID 05/17/2017 05/21/2017 Inactive doxycycline hyclate 100 mg capsule RxNorm: 8212466 1 Capsule(s) PO BID 05/11/2017 05/16/2017 Inactive losartan 25 mg tablet RxNorm: 576450 1 Tablet(s) PO daily 201606/17/2017 Inactive atorvastatin 40 mg tablet RxNorm: 992252 1 Tablet(s) PO daily 03/01/2017 08/23/2017 Inactive clopidogrel 75 mg tablet RxNorm: 268604 1 Tablet(s) PO daily 08/23/2017 Inactive Flonase Allergy Relief 50 mcg/actuation nasal spray, suspension RxNorm: 7905012 2 [place] NASAL daily 02/16/20172016 Inactive Augmentin 875 mg-125 mg tablet RxNorm: 116940 1 Tablet(s) PO BID 02/16/2017 02/22/2017 Inactive GET PROBIOTIC TO TAKE WHILE ON ABX Tamiflu 75 mg capsule RxNorm: 500492 1 Capsule(s) PO BID 201602/20/2017 Inactive ceftriaxone 500 mg solution for injection RxNorm: 0790236 1 Milliliter(s) Inj 02/16/2017 02/16/2017 Inactive Kenalog 40 mg/mL suspension for injection RxNorm: 5882553 1 Milliliter(s) Inj 02/16/2017 02/16/2017 Inactive Toujeo SoloStar 300 unit/mL (1.5 mL) subcutaneous insulin pen RxNorm: 2978299 25 Unit(s) SQ QAM 02/12/2017 06/10/2017 Inactive Toujeo SoloStar 300 unit/mL (1.5 mL) subcutaneous insulin pen RxNorm: 9073715 10 Unit(s) SQ QAM 02/05/2017 02/11/2017 Inactive lisinopril 10 mg tablet RxNorm: 050957 1 Tablet(s) PO daily 02/28/2017 Inactive atorvastatin 40 mg tablet RxNorm: 285201 1 Tablet(s) PO daily 02/01/2017 02/28/2017 Inactive doxycycline hyclate 100 mg capsule RxNorm: 5376481 1 Capsule(s) PO BID 02/01/2017 02/10/2017 Inactive clonazepam 1 mg tablet RxNorm: 439647 1 Tablet(s) PO Q8 as needed 10/09/2016 01/05/2017 Inactive ceftriaxone 1 gram solution for injection RxNorm: 4755618 Inj 10/06/2016 10/06/2016 Inactive cyclobenzaprine 10 mg tablet RxNorm: 741778 1/2-1 Tablet(s) PO TID PRN 07/18/2016 01/28/2017 Inactive clonazepam 1 mg tablet RxNorm: 944822 1 Tablet(s) PO Q8 as needed 05/31/2016 05/29/2016 Inactive clonazepam 1 mg tablet RxNorm: 112438 1 Tablet(s) PO Q8 as needed 05/31/2016 08/28/2016 Inactive Toujeo SoloStar 300 unit/mL (1.5 mL) subcutaneous insulin pen RxNorm: 9583818 10 Unit(s) SQ daily 05/23/2016 01/28/2017 Inactive Crestor 10 mg tablet RxNorm: 904791 1 Tablet(s) PO QHS 201501/28/2017 Inactive Crestor 10 mg tablet RxNorm: 148745 1 Tablet(s) PO QHS 201505/18/2016 Inactive clonazepam 1 mg tablet RxNorm: 632240 1 Tablet(s) PO Q8 as needed 04/25/2016 05/30/2016 Inactive prednisone 20 mg tablet RxNorm: 994951 3 Tablet(s) PO daily 06/201602/10/2016 Inactive prednisone 20 mg tablet RxNorm: 453823 3 Tablet(s) PO daily 06/201605/14/2016 Inactive Kenalog 40 mg/mL suspension for injection RxNorm: 6128956 Milliliter(s) Inj 01/20/2016 01/20/2016 Inactive aspirin 81 mg tablet,delayed release RxNorm: 244210 1 Tablet(s) PO daily No Start Date Active Brilinta 90 mg tablet RxNorm: 2933078 1 Tablet(s) PO BID No Start Date Active acetaminophen 500 mg tablet RxNorm: 626144 1-2 Tablet(s) PO as needed No Start Date Active clopidogrel 75 mg tablet RxNorm: 509230 1 Tablet(s) PO daily No Start Date 02/28/2017 Inactive Novolog Flexpen U-100 Insulin aspart 100 unit/mL subcutaneous RxNorm: 1705814 5 units with breakfast lunch and 10 supper Unit(s) SQ No Start Date 06/17/2018 Inactive clonazepam 1 mg tablet RxNorm: 291416 1 Tablet(s) PO QHS No Start Date 04/24/2016 Inactive Coreg 6.25 mg tablet RxNorm: 661716 1 Tablet(s) PO BID No Start Date 09/29/2018 Inactive acyclovir 400 mg tablet RxNorm: 381933 2 Tablet(s) PO 5x daily No Start Date 02/28/2017 Inactive Lyrica 50 mg capsule RxNorm: 654235 Capsule(s) PO BID No Start Date 06/09/2018 Inactive Vraylar 3 mg capsule RxNorm: 0603791 1 Capsule(s) PO daily No Start Date 03/12/2018 Inactive valsartan 80 mg tablet RxNorm: 959336 1 Tablet(s) PO daily No Start Date 10/22/2018 Inactive Medication Administered Medication Codes Instructions Start Date Status ketorolac 60 mg/2 mL intramuscular solution RxNorm: 9411710 Milliliter 10/21/2018 No longer Active Kenalog 40 mg/mL suspension for injection RxNorm: 9618097 1.5Milliliter 09/30/2018 No longer Active Kenalog 40 mg/mL suspension for injection RxNorm: 0808698 Milliliter 09/11/2018 No longer Active Kenalog 40 mg/mL suspension for injection RxNorm: 9030175 Milliliter 06/28/2018 No longer Active ketorolac 30 mg/mL injection solution RxNorm: 208296 2Milliliter 05/02/2018 No longer Active ceftriaxone 500 mg solution for injection RxNorm: 3208704 1Milliliter 02/16/2017 No longer Active Kenalog 40 mg/mL suspension for injection RxNorm: 9290906 1Milliliter 02/16/2017 No longer Active ceftriaxone 1 gram solution for injection RxNorm: 8645598 10/06/2016 No longer Active Kenalog 40 mg/mL suspension for injection RxNorm: 9777822 Milliliter 01/20/2016 No longer Active Immunizations Vaccine Codes Date Status Influenza CVX: 141 07/22/2018 completed Influenza CVX: 141 08/16/2017 completed Assessments Condition Codes Effective Dates Type 2 diabetes mellitus with hyperglycemia ICD-10: E11.65 ICD-9: 250.00 12/31/2018 Shortness of breath ICD-10: R06.02 ICD-9: 786.05 12/31/2018 Pain in joints of right hand ICD-10: M25.541 ICD-9: 719.44 12/31/2018 Epigastric pain ICD-10: R10.13 ICD-9: 789.06 12/31/2018 Other chest pain ICD-10: R07.89 ICD-9: 786.59 12/26/2018 Cough ICD-10: R05 ICD-9: 786.2 12/26/2018 Pneumonia due to other Gram-negative bacteria ICD-10: J15.6 ICD-9: 482.83 11/12/2018 Trigger finger, right middle finger ICD-10: M65.331 ICD-9: 727.03 10/24/2018 Essential (primary) hypertension ICD-10: I10 ICD-9: 401.1 10/23/2018 Type 2 diabetes mellitus with foot ulcer ICD-10: E11.621 ICD-9: 250.80 10/23/2018 Cellulitis of right finger ICD-10: L03.011 ICD-9: 681.00 10/21/2018 Pain in right hand ICD-10: M79.641 ICD-9: 729.5 10/21/2018 Spontaneous ecchymoses ICD-10: R23.3 ICD-9: 782.7 10/17/2018 Cellulitis of right lower limb ICD-10: L03.115 ICD-9: 682.6 10/17/2018 Cellulitis of left lower limb ICD-10: L03.116 ICD-9: 682.7 10/17/2018 Acute bronchitis, unspecified ICD-10: J20.9 ICD-9: 466.0 10/14/2018 Acute laryngopharyngitis ICD-10: J06.0 ICD-9: 465.0 09/30/2018 Acute recurrent maxillary sinusitis ICD-10: J01.01 ICD-9: 461.0 09/11/2018 Mixed hyperlipidemia ICD-10: E78.2 ICD-9: 272.2 09/06/2018 VACCIN FOR INFLUENZA ICD-10: Z23 ICD-9: V04.81 07/22/2018 Type 2 diabetes mellitus with other specified complication ICD-10: E11.69 ICD-9: 250.80 07/22/2018 Bipolar disorder, current episode depressed, moderate ICD-10 : F31.32 ICD-9: 296.52 07/22/2018 Insomnia due to medical condition ICD-10: G47.01 ICD-9: 327.01 07/16/2018 Other allergic rhinitis ICD-10: J30.89 ICD-9: 477.8 06/28/2018 Diarrhea, unspecified ICD-10: R19.7 ICD-9: 787.91 06/21/2018 Localized edema ICD-10: R60.0 ICD-9: 782.3 06/04/2018 Myalgia ICD-10: M79.1 ICD-9: 729.1 05/13/2018 Pain in left hip ICD-10: M25.552 ICD-9: 719.45 05/13/2018 Pain in right hip ICD-10: M25.551 ICD-9: 719.45 05/13/2018 Major depressive disorder, single episode, moderate ICD-10: F32.1 ICD-9: 296.22 04/29/2018 Orthostatic hypotension ICD-10: I95.1 ICD-9: 458.0 03/07/2018 Other fatigue ICD-10: R53.83 ICD-9: 780.79 02/28/2018 Gastro-esophageal reflux disease without esophagitis ICD-10 : K21.9 ICD-9: 530.81 02/13/2018 Other malaise ICD-10: R53.81 ICD-9: 780.79 02/13/2018 Pain in right shoulder ICD-10: M25.511 ICD-9: 719.41 08/27/2017 Pain in left shoulder ICD-10: M25.512 ICD-9: 719.41 08/27/2017 [place] without complications ICD-10: [...] right foot ICD-10: M79.671 ICD-9: 729.5 10/09/2016 Low back pain ICD-10: M54.5 ICD-9: 724.2 07/18/2016 Other deformities of toe(s) (acquired), left foot ICD-10: M20.5X2 ICD-9: 735.5 07/18/2016 Other hemoglobinopathies ICD-10: D58.2 ICD-9: 282.7 05/23/2016 Encounter for general adult medical examination without abnormal findings ICD-10: Z00.00 ICD-9: V70.0 05/17/2016 Dehydration ICD-10: E86.0 ICD-9: 276.51 05/15/2016 Reason For Visit Reason For Visit Effective Dates Notes chest pain/pressure 12/31/2018 chest pain/pressure 12/26/2018 cough 11/18/2018 cough 11/12/2018 cough 10/30/2018 finger pain 10/24/2018 hand pain 10/23/2018 hand pain 10/21/2018 lower leg pain 10/17/2018 cough 10/14/2018 cough [...] Item Item Code Result Date Culture Sputum 888612 LOWER RESPIRATORY TRACT CULTURE SEE NOTES 11/14/2018 Culture Sputum 523296 LOWER RESPIRATORY TRACT CULTURE SEE NOTES 10/16/2018 LIPID GRP [id number] CHOLESTEROL TNP:Duplicate Order 09/10/2018 LIPID GRP [id number] Triglyceride TNP:Duplicate Order 2017 LIPID GRP [id number] HDL CHOLESTEROL TNP:Duplicate Order 2017 LIPID GRP 8933274 Chol/HDL Ratio TNP:Duplicate Order 2017 LIPID GRP [id number] LDL Cholesterol TNP:Duplicate Order 2017 A1C HPLC 2268466 Hgb A1c 69924-3 TNP:Duplicate Order 2017 C Diff An [id number] GDH TNP:Lab Request 06/22/2018 C Diff An [id number] Toxin A/B TNP:Lab Request 06/22/2018 C Diff An [id number] C Diff Analyzer TNP:Lab Request 2017 C Diff An [id number] IC OK? TNP:Lab Request 06/22/2018 CBC 0880176 WBC 6.4 10e9/L 05/02/2018 CBC 1963519 RBC 5.60 10e12/L 05/02/2018 CBC 6131618 HEMOGLOBIN 17.0 g/dL 05/02/2018 CBC 9537219 HEMATOCRIT 48.0 % 05/02/2018 CBC 1976880 MCV 85.7 fL 05/02/2018 CBC 7043564 MCH 30.4 pg 05/02/2018 CBC 0950987 MCHC 35.4 g/dL 05/02/2018 CBC 0943060 PLATELET COUNT 166 10e9/L 05/02/2018 CBC 4140067 Mean Plt Volume 11.6 fL 05/02/2018 CBC 0763295 Neut Auto 48.6 % 05/02/2018 CBC 5075438 Lymph Auto 41.7 % 05/02/2018 CBC 9066969 [place] Auto 8.1 % 05/02/2018 CBC 5918171 RDW 13.1 % 05/02/2018 CBC 9101459 Eos Auto 1.1 % 05/02/2018 CBC 9034187 Baso Auto 0.5 % 05/02/2018 CBC 9185603 Neutrophil Abs 3.11 10e9/L 05/02/2018 CBC 5733436 Lymphocyte Abs 2.67 10e9/L 05/02/2018 CBC 8006270 Monocyte Abs 0.52 10e9/L 05/02/2018 CBC 8063576 Eosinophil Abs 0.07 10e9/L 05/02/2018 CBC 0598893 RDW-SD 40.0 fL 05/02/2018 CBC 2020719 Basophil Abs 0.03 10e9/L 05/02/2018 CHEM 14 7569588 AST 17 U/L 05/02/2018 CHEM 14 1890074 ALT 17 U/L 05/02/2018 CHEM 14 8904124 BUN 17 mg/dL 05/02/2018 CHEM 14 1241661 ALBUMIN 4.0 g/dL 05/02/2018 CHEM 14 3945907 CHLORIDE 97 mmol/L 05/02/2018 CHEM 14 0056366 Bili Total 0.9 mg/dL 05/02/2018 CHEM 14 3232458 ALK PHOS 67 U/L 05/02/2018 CHEM 14 4192535 SODIUM 135 mmol/L 05/02/2018 CHEM 14 7711493 CREATININE 1.18 mg/dL 05/02/2018 CHEM 14 7563905 CALCIUM 9.4 mg/dL 05/02/2018 CHEM 14 4153536 POTASSIUM 4.4 mmol/L 05/02/2018 CHEM 14 6647495 TOTAL PROTEIN 6.9 g/dL 05/02/2018 CHEM 14 1607139 GLUCOSE 316 mg/dL 05/02/2018 CHEM 14 5648252 Bicarbonate 29 mmol/L 05/02/2018 CHEM 14 2256161 AGAP 9 mmol/L 05/02/2018 MEAN GLUC 3406450 Calc Mean Gluc 283 mg/dL 05/02/2018 A1C HPLC 1682317 Hgb A1c 56412-0 11.5 % 05/02/2018 GFR CALC 0347666 GFR Non Afr Amr >60 mL/min 05/02/2018 GFR CALC 0120363 GFR Afr Amr >60 mL/min 05/02/2018 [facility] Gold [id number] JI Gold Complete 02/28/2018 GFR CALC 6943583 GFR Non Afr Amr >60 mL/min 02/28/2018 GFR CALC 5093073 GFR Afr Amr >60 mL/min 02/28/2018 UA W/CII 4274583 UA Urine Appear Normal 02/28/2018 UA W/CII 3727836 UA Protein 1+ 02/28/2018 UA W/CII 7940913 UA Hemoglobin Negative 02/28/2018 UA W/CII 2415427 UA Glucose 4+ 02/28/2018 UA W/CII 3760182 UA Ketones Trace 02/28/2018 UA W/CII 7610612 UA pH 5.5 02/28/2018 UA W/CII 1011844 U Spec [place] 1.015 02/28/2018 UA W/CII 6149017 UA Bilirubin Negative 02/28/2018 UA W/CII 2583584 UA Nitrite NEG 02/28/2018 UA W/CII 3733534 UA Leuk Esteras Negative 02/28/2018 MICR [id number] UA WBC/hpf 1 02/28/2018 MICR [id number] UA RBC hpf 2 02/28/2018 MICR [id number] UA WBC auto 3.8 /uL 02/28/2018 MICR [id number] UA RBC auto 12.2 /uL 02/28/2018 MICR [id number] UA SQ EPI auto 2.3 /uL 02/28/2018 MICR [id number] UA H Cast auto 0.10 /uL 02/28/2018 CBC [id number] WBC 6.4 10e9/L 02/28/2018 CBC [id number] RBC 5.51 10e12/L 02/28/2018 CBC [id number] HEMOGLOBIN 16.7 g/dL 02/28/2018 CBC [id number] HEMATOCRIT 46.9 % 02/28/2018 CBC [id number] MCV 85.1 fL 02/28/2018 CBC [id number] MCH 30.3 pg 02/28/2018 CBC [id number] MCHC 35.6 g/dL 02/28/2018 CBC [id number] PLATELET COUNT 173 10e9/L 02/28/2018 CBC [id number] Mean Plt Volume 11.6 fL 02/28/2018 CBC [id number] Neut Auto 51.8 % 02/28/2018 CBC [id number] Lymph Auto 39.9 % 02/28/2018 CBC [id number] [place] Auto 7.3 % 02/28/2018 CBC [id number] RDW 13.3 % 02/28/2018 CBC [id number] Eos Auto 0.8 % 02/28/2018 CBC [id number] Baso Auto 0.2 % 02/28/2018 CBC [id number] Neutrophil Abs 3.32 10e9/L 02/28/2018 CBC [id number] Lymphocyte Abs 2.55 10e9/L 02/28/2018 CBC [id number] Monocyte Abs 0.47 10e9/L 02/28/2018 CBC 0545313 Eosinophil Abs 0.05 10e9/L 02/28/2018 CBC [id number] Basophil Abs 0.01 10e9/L 02/28/2018 CBC [id number] RDW-SD 40.8 fL 02/28/2018 CHEM 14 [id number] AST 17 U/L 02/28/2018 CHEM 14 1410160 ALT 17 U/L 02/28/2018 CHEM 14 6970708 BUN 20 mg/dL 02/28/2018 CHEM 14 3993722 ALBUMIN 4.1 g/dL 02/28/2018 CHEM 14 2493000 CHLORIDE 97 mmol/L 02/28/2018 CHEM 14 4608144 Bili Total 1.3 mg/dL 02/28/2018 CHEM 14 [id number] ALK PHOS 78 U/L 02/28/2018 CHEM 14 [id number] SODIUM 135 mmol/L 02/28/2018 CHEM 14 [id number] CREATININE 1.09 mg/dL 02/28/2018 CHEM 14 4562307 CALCIUM 9.6 mg/dL 02/28/2018 CHEM 14 5974727 POTASSIUM 3.8 mmol/L 02/28/2018 CHEM 14 8366872 TOTAL PROTEIN 7.3 g/dL 02/28/2018 CHEM 14 2669745 GLUCOSE 349 mg/dL 02/28/2018 CHEM 14 0943537 Bicarbonate 29 mmol/L 02/28/2018 CHEM 14 0333040 AGAP 9 mmol/L 02/28/2018 [place] Spotted Fever Igg/Igm 033530 FEI MT SPOTTED FEVER IGM EIA . 09/05/2017 [place] Spotted Fever Igg/Igm [id number] RMSF, IGM 0.17 index 09/05/2017 [place] Spotted Fever Igg/Igm 295632 FEI MT SPOTTED FEVER IGG EIA FLEX . 09/05/2017 [place] Spotted Fever Igg/Igm 834858 RMSF, IGG SCREEN-FLEX Positive 09/05/2017 Fei Mtn Spot'D Fev Igg 275790 RMSF, IGG -TITER IFA <1:64 11/2016 Ehrlichia Chaffeensis Antibody Igm [id number] EHRLICHIA CHAFFEENSIS IGM < 1:16 09/03/2017 Ehrlichia Chaffeensis Antibody Igg [id number] EHRLICHIA CHAFFEENSIS IGG <1:64 09/03/2017 Lymes Disease Total Antibodies With Western Blot Reflex B. BURGDORFERI, IGG/IGM 0.223 08/30/2017 Lymes Disease Total Antibodies With Western Blot Reflex C-Reactive Protein Qnt Crqnt CRP 0.00 mg/dl 08/27/2017 Sed Rate Ord21 ESR 8 mm/hr 08/27/2017 Comp Metabolic Ldt910 NA 135 mEq/L 08/16/2017 Comp Metabolic Vlv960 K 4.1 mEq/L 08/16/2017 Comp Metabolic Zeu314 CL 98 mEq/L 08/16/2017 Comp Metabolic Jyl652 CO2 28.0 mEq/L 08/16/2017 Comp Metabolic Prg009 ANION GAP 13 08/16/2017 Comp Metabolic Osl706 GLUCOSE 299 mg/dL 08/16/2017 Comp Metabolic Iqf568 Creat 0.9 mg/dL 08/16/2017 Comp Metabolic Bja982 eGFR 90 ml/min/1.73m2 08/16/2017 Comp Metabolic Ocy063 BUN 20 mg/dL 08/16/2017 Comp Metabolic Gpz910 B/C Ratio 21.5 Ratio 08/16/2017 Comp Metabolic Lek218 CALCIUM 9.2 mg/dL 08/16/2017 Comp Metabolic Roy569 ALK PHOS 84 U/L 08/16/2017 Comp Metabolic Aii174 AST(SGOT) 19 U/L 08/16/2017 Comp Metabolic Tid146 ALT(SGPT) 24 U/L 08/16/2017 Comp Metabolic Aix714 BILI T 1.1 mg/dL 08/16/2017 Comp Metabolic Lds792 ALBUMIN 4.2 g/dL 08/16/2017 Comp Metabolic Idr697 TPRO 7.2 g/dL 08/16/2017 Comp Metabolic Zrt218 GLOB 3.0 g/dL 08/16/2017 Comp Metabolic Jmn382 A/G Ratio 1.4 Ratio 08/16/2017 Comp Metabolic Spy777 Osmo 284 mOsmo 08/16/2017 %Hba1C Gsc146 % HbA1c 78213-0 12.5 % 08/16/2017 %Hba1C Bpb539 Gluc Ave 312 mg/dL 08/16/2017 Urine Culture Ucult Preliminary NO Growth Day 1 06/23/2017 Urine Culture Ucult Complete NO Growth Day 2 06/23/2017 C RAP A SC [id number] Strep A Negative 06/08/2017 %Hba1C Pgr650 % HbA1c 92174-5 9.5 % 05/04/2017 %Hba1C Ser743 Gluc Ave 226 mg/dL 05/04/2017 Tsh Ord6 [...] 40.4 % 05/04/2017 Cbc With Differential Ord2 [place]% 8.5 % 05/04/2017 Cbc With Differential Ord2 MCH 31.7 pg 05/04/2017 Cbc With Differential Ord2 Eos% 1.0 % 05/04/2017 Cbc With Differential Ord2 MCHC 35.2 pg 05/04/2017 Cbc With Differential Ord2 PLT 158 K/ul 05/04/2017 Cbc With Differential Ord2 Baso% 0.3 % 05/04/2017 Cbc With Differential Ord2 RDW 13.6 % 05/04/2017 Cbc With Differential Ord2 Neut ABS# 3.06 K/ul 05/04/2017 Cbc With Differential Ord2 Lymph ABS# 2.48 K/ul 05/04/2017 Cbc With Differential Ord2 [place] ABS# 0.5 K/ul 05/04/2017 Cbc With Differential Ord2 Eos ABS# 0.1 K/ul 05/04/2017 Cbc With Differential Ord2 Baso ABS# 0.0 K/ul 05/04/2017 Comp Metabolic Ynh179 NA 135 mEq/L 05/04/2017 Comp Metabolic Tvy056 K 4.2 mEq/L 05/04/2017 Comp Metabolic Gbx713 CL 99 mEq/L 05/04/2017 Comp Metabolic Pkx885 CO2 26.0 mEq/L 05/04/2017 Comp Metabolic Jzj582 ANION GAP 14 05/04/2017 Comp Metabolic Nxh819 GLUCOSE 277 mg/dL 05/04/2017 Comp Metabolic Ytr539 Creat 0.9 mg/dL 05/04/2017 Comp Metabolic Dmw683 eGFR 96 ml/min/1.73m2 05/04/2017 Comp Metabolic Xzw077 BUN 23 mg/dL 05/04/2017 Comp Metabolic Bll662 B/C Ratio 26.1 Ratio 05/04/2017 Comp Metabolic Ywk012 CALCIUM 8.9 mg/dL 05/04/2017 Comp Metabolic Wsl195 ALK PHOS 81 U/L 05/04/2017 Comp Metabolic Qsf842 AST(SGOT) 21 U/L 05/04/2017 Comp Metabolic Jpg986 ALT(SGPT) 27 U/L 05/04/2017 Comp Metabolic Tbk167 BILI T 1.2 mg/dL 05/04/2017 Comp Metabolic Umg297 ALBUMIN 4.0 g/dL 05/04/2017 Comp Metabolic Lrb359 TPRO 6.7 g/dL 05/04/2017 Comp Metabolic Yos248 GLOB 2.7 g/dL 05/04/2017 Comp Metabolic Ocv421 A/G Ratio 1.5 Ratio 05/04/2017 Comp Metabolic Gvm314 Osmo 284 mOsmo 05/04/2017 C A/B FLU [id number] Influenza A Scr Negative 02/16/2017 C A/B FLU [id number] Influenza B Scr Positive 02/16/2017 Cbc With [...] 30.3 pg 05/23/2016 Cbc With Differential Ord2 [place]% 8.8 % 05/23/2016 Cbc With Differential Ord2 [...] 2.07 K/ul 05/23/2016 Cbc With Differential Ord2 [place] ABS# 0.5 K/ul 05/23/2016 Cbc With Differential Ord2 Eos ABS# 0.1 K/ul 05/23/2016 Cbc With Differential Ord2 Baso ABS# 0.0 K/ul 05/23/2016 Lipid Ord30 CHOL 397 mg/dL 05/17/2016 Lipid Ord30 HDL 48.0 mg/dl 05/17/2016 Lipid Ord30 TRIG 578 mg/dL 05/17/2016 Lipid Ord30 LDL Unable to calculate Due to elevated triglycerides mg/dL 05/17/2016 Lipid Ord30 C/HDL 8.3 Ratio 05/17/2016 %Hba1C Iwu408 % HbA1c 62655-7 12.4 % 05/16/2016 %Hba1C Anw714 Gluc Ave 309 mg/dL 05/16/2016 Cbc With Differential Ord2 WBC 6.40 K/ul 05/15/2016 Cbc With Differential Ord2 RBC 5.96 M/ul 05/15/2016 Cbc With Differential Ord2 HGB 18.1 g/dl 05/15/2016 Cbc With Differential Ord2 HCT 52.1 % 05/15/2016 Cbc With Differential Ord2 Neut% 59.3 % 05/15/2016 Cbc With Differential Ord2 MCV 87.4 fl 05/15/2016 Cbc With Differential Ord2 Lymph% 31.9 % 05/15/2016 Cbc With Differential Ord2 MCH 30.4 pg 05/15/2016 Cbc With Differential Ord2 [place]% 7.8 % 05/15/2016 Cbc With Differential Ord2 Eos% 0.8 % 05/15/2016 Cbc With Differential Ord2 MCHC 34.7 pg 05/15/2016 Cbc With Differential Ord2 Baso% 0.2 % 05/15/2016 Cbc With Differential Ord2 PLT 184 K/ul 05/15/2016 Cbc With Differential Ord2 Neut ABS# 3.80 K/ul 05/15/2016 Cbc With Differential Ord2 RDW 14.0 % 05/15/2016 Cbc With Differential Ord2 Lymph ABS# 2.04 K/ul 05/15/2016 Cbc With Differential Ord2 [place] ABS# 0.5 K/ul 05/15/2016 Cbc With Differential Ord2 Eos ABS# 0.1 K/ul 05/15/2016 Cbc With Differential Ord2 Baso ABS# 0.0 K/ul 05/15/2016 Tsh Ord6 hTSH II 1.70 uIU/mL 05/15/2016 Comp Metabolic Dwo883 NA 135 mEq/L 05/15/2016 Comp Metabolic Xtv440 K 3.9 mEq/L 05/15/2016 Comp Metabolic Skc878 CL 96 mEq/L 05/15/2016 Comp Metabolic Sgx502 CO2 27.0 mEq/L 05/15/2016 Comp Metabolic Htz653 ANION GAP 16 05/15/2016 Comp Metabolic Evz169 GLUCOSE 183 mg/dL 05/15/2016 Comp Metabolic Blf332 Creat 1.1 mg/dL 05/15/2016 Comp Metabolic Rbl573 eGFR 71 ml/min/1.73m2 05/15/2016 Comp Metabolic Oax934 BUN 17 mg/dL 05/15/2016 Comp Metabolic Hbh285 B/C Ratio 14.9 Ratio 05/15/2016 Comp Metabolic Xga214 CALCIUM 9.6 mg/dL 05/15/2016 Comp Metabolic Ooh603 ALK PHOS 100 U/L 05/15/2016 Comp Metabolic Cvw428 AST(SGOT) 20 U/L 05/15/2016 Comp Metabolic Ctn466 ALT(SGPT) 20 U/L 05/15/2016 Comp Metabolic Jxn084 BILI T 1.3 mg/dL 05/15/2016 Comp Metabolic Vye804 ALBUMIN 4.6 g/dL 05/15/2016 Comp Metabolic Ycn528 TPRO 8.1 g/dL 05/15/2016 Comp Metabolic Sgl961 GLOB 3.5 g/dL 05/15/2016 Comp Metabolic Pws146 A/G Ratio 1.3 Ratio 05/15/2016 Comp Metabolic Wme767 Osmo 276 mOsmo 05/15/2016 Review of Systems System Result Effective Dates Constitutional recent illness 12/31/2018 Constitutional anorexia 12/31/2018 Constitutional No night sweats 2018 Constitutional chills 12/31/2018 Constitutional No diaphoresis 12/31/2018 Constitutional fatigue 12/31/2018 Constitutional No fever 12/31/2018 Constitutional No insomnia 12/31/2018 Constitutional No malaise 12/31/2018 Constitutional No weight loss 12/31/2018 Constitutional No weight gain 12/31/2018 Eyes No eye erythema 12/31/2018 Eyes No eye discharge 12/31/2018 Ears/Nose/Throat/Neck dizziness 2018 Ears/Nose/Throat/Neck headache 2018 Ears/Nose/Throat/Neck No nasal discharge 12/31/2018 Ears/Nose/Throat/Neck No otalgia 2018 Ears/Nose/Throat/Neck No sinus congestion 12/31/2018 Ears/Nose/Throat/Neck No sore throat Cardiovascular chest pain/pressure 2018 Cardiovascular No edema 12/31/2018 Respiratory cough 12/31/2018 Respiratory No productive sputum 2018 Gastrointestinal No abdominal pain 2018 Gastrointestinal No constipation 2018 Gastrointestinal No diarrhea 12/31/2018 Genitourinary/Nephrology No dysuria 12/31 Musculoskeletal joint complaint 2018 Dermatologic No rash 12/31/2018 Neurologic No alteration of consciousness 12/31/2018 Psychiatric anxiety 12/31/2018 Endocrine diabetes mellitus type 2 2018 Constitutional No recent illness 2018 Constitutional No chills 12/26/2018 Constitutional No diaphoresis 12/26/2018 Constitutional No fever 12/26/2018 Eyes No eye erythema 12/26/2018 Ears/Nose/Throat/Neck No nasal discharge 12/26/2018 Cardiovascular chest pain/pressure 2018 Cardiovascular No dyspnea 12/26/2018 Respiratory cough 12/26/2018 Respiratory No dyspnea 12/26/2018 Respiratory chest congestion 12/26/2018 Gastrointestinal No abdominal pain 2018 Neurologic No alteration of consciousness 12/26/2018 Neurologic No mental status change 2018 Constitutional recent illness 11/18/2018 Constitutional No anorexia 11/18/2018 Constitutional No night sweats 2018 Constitutional No chills 11/18/2018 Constitutional No diaphoresis 11/18/2018 Constitutional fatigue 11/18/2018 Constitutional No fever 11/18/2018 Constitutional insomnia 11/18/2018 Constitutional No malaise 11/18/2018 Eyes No eye discharge 11/18/2018 Eyes No eye erythema 11/18/2018 Ears/Nose/Throat/Neck No dizziness 2018 Ears/Nose/Throat/Neck headache 2018 Ears/Nose/Throat/Neck nasal discharge Ears/Nose/Throat/Neck No otalgia 2018 Ears/Nose/Throat/Neck sinus congestion Ears/Nose/Throat/Neck No sore throat Cardiovascular No chest pain/pressure Cardiovascular dyspnea 11/18/2018 Cardiovascular No edema 11/18/2018 Respiratory productive sputum 11/18/2018 Respiratory cough 11/18/2018 Musculoskeletal joint complaint 2018 Neurologic No alteration of consciousness 11/18/2018 Constitutional recent illness 11/12/2018 Constitutional No anorexia 11/12/2018 Constitutional No night sweats 2018 Constitutional No chills 11/12/2018 Constitutional No diaphoresis 11/12/2018 Constitutional fatigue 11/12/2018 Constitutional No fever 11/12/2018 Constitutional insomnia 11/12/2018 Constitutional No malaise 11/12/2018 Eyes No eye discharge 11/12/2018 Eyes No eye erythema 11/12/2018 Ears/Nose/Throat/Neck No dizziness 2018 Ears/Nose/Throat/Neck headache 2018 Ears/Nose/Throat/Neck nasal discharge 06/2019 Ears/Nose/Throat/Neck No sore throat 06/2019 Ears/Nose/Throat/Neck No otalgia 2018 Ears/Nose/Throat/Neck sinus congestion Cardiovascular No chest pain/pressure 06/2019 Cardiovascular No dyspnea 11/12/2018 Cardiovascular No edema 11/12/2018 Respiratory productive sputum 11/12/2018 Respiratory cough 11/12/2018 Gastrointestinal No nausea 11/12/2018 Gastrointestinal No vomiting 11/12/2018 Genitourinary/Nephrology No dysuria 11/12 Musculoskeletal joint complaint 2018 Dermatologic No rash 11/12/2018 Neurologic No alteration of consciousness 11/12/2018 Endocrine No dry or coarse skin 2018 Constitutional recent illness 10/30/2018 Constitutional No anorexia 10/30/2018 Constitutional No night sweats 2017 Constitutional No chills 10/30/2018 Constitutional No diaphoresis 10/30/2018 Constitutional fatigue 10/30/2018 Constitutional No fever 10/30/2018 Constitutional insomnia 10/30/2018 Constitutional No malaise 10/30/2018 Eyes No eye discharge 10/30/2018 Eyes No eye erythema 10/30/2018 Ears/Nose/Throat/Neck No dizziness 2017 Ears/Nose/Throat/Neck headache 2017 Ears/Nose/Throat/Neck nasal discharge Ears/Nose/Throat/Neck No otalgia 2017 Ears/Nose/Throat/Neck sinus congestion Ears/Nose/Throat/Neck No sore throat Cardiovascular No chest pain/pressure Cardiovascular No dyspnea 10/30/2018 Cardiovascular No edema 10/30/2018 Respiratory productive sputum 10/30/2018 Respiratory cough 10/30/2018 Gastrointestinal No nausea 10/30/2018 Gastrointestinal No vomiting 10/30/2018 Genitourinary/Nephrology No dysuria 10/30 Musculoskeletal joint complaint 2017 Dermatologic No rash 10/30/2018 Neurologic No alteration of consciousness 10/30/2018 Endocrine No dry or coarse skin 2017 Constitutional recent illness 10/24/2018 Constitutional No anorexia 10/24/2018 Constitutional No night sweats 2017 Constitutional No chills 10/24/2018 Constitutional No diaphoresis 10/24/2018 Constitutional fatigue 10/24/2018 Constitutional No fever 10/24/2018 Constitutional No insomnia 10/24/2018 Constitutional No malaise 10/24/2018 Constitutional No weight loss 10/24/2018 Constitutional No weight gain 10/24/2018 Musculoskeletal joint complaint 2017 Constitutional recent illness 10/23/2018 Constitutional anorexia 10/23/2018 Constitutional No night sweats 2017 Constitutional No chills 10/23/2018 Constitutional No diaphoresis 10/23/2018 Constitutional fatigue 10/23/2018 Constitutional No fever 10/23/2018 Constitutional No insomnia 10/23/2018 Constitutional No malaise 10/23/2018 Eyes No eye discharge 10/23/2018 Eyes No eye erythema 10/23/2018 Ears/Nose/Throat/Neck No dizziness 2017 Cardiovascular No chest pain/pressure Respiratory cough 10/23/2018 Gastrointestinal No constipation 2017 Gastrointestinal No diarrhea 10/23/2018 Gastrointestinal nausea 10/23/2018 Genitourinary/Nephrology No dysuria 10/23 Musculoskeletal joint complaint 2017 Dermatologic erythema 10/23/2018 Neurologic No alteration of consciousness 10/23/2018 Psychiatric anxiety 10/23/2018 Constitutional recent illness 10/21/2018 Constitutional anorexia 10/21/2018 Constitutional No night sweats 2017 Constitutional No chills 10/21/2018 Constitutional No diaphoresis 10/21/2018 Constitutional fatigue 10/21/2018 Constitutional No fever 10/21/2018 Constitutional No insomnia 10/21/2018 Constitutional No malaise 10/21/2018 Constitutional No weight loss 10/21/2018 Constitutional No weight gain 10/21/2018 Eyes No eye discharge 10/21/2018 Eyes No eye erythema 10/21/2018 Ears/Nose/Throat/Neck No dizziness 2017 Cardiovascular No chest pain/pressure Respiratory cough 10/21/2018 Gastrointestinal No constipation 2017 Gastrointestinal No diarrhea 10/21/2018 Gastrointestinal nausea 10/21/2018 Genitourinary/Nephrology No dysuria 10/21 Musculoskeletal joint complaint 2017 Dermatologic sores 10/21/2018 Dermatologic erythema 10/21/2018 Neurologic No alteration of consciousness 10/21/2018 Psychiatric anxiety 10/21/2018 Constitutional No recent illness 2017 Constitutional No [...] Effective Dates Notes Full Exam - General 1995 Constitutional general appearance Overall: well developed 12/31/2018 None Full Exam - General 1994 Constitutional general appearance Overall: in no acute distress 12/31/2018 None Full Exam - General 1994 Constitutional general appearance Overall: well nourished 12/31/2018 None Full Exam - General 1995 Eyes conjunctiva /eyelids Overall: conjunctiva clear 12/31/2018 None Full Exam - General 1994 Eyes conjunctiva /eyelids Overall: cornea clear 12/31/2018 None Full Exam - General 1994 Eyes conjunctiva /eyelids Overall: eyelids normal 12/31/2018 None Full Exam - General 1994 Ears/Nose/Throat lips/teeth/gingiva Overall: benign lips 12/31/2018 None Full Exam - General 1994 Ears/Nose/Throat oral cavity/pharynx/larynx Overall: oral mucosa clear 12/31/2018 None Full Exam - General 1994 Respiratory auscultation Overall: breath sounds clear bilaterally 12/31/2018 None Full Exam - General 1994 Respiratory respiratory effort/rhythm Overall: no retractions 12/31/2018 None Full Exam - General 1994 Respiratory respiratory effort/rhythm Overall: normal rate 12/31/2018 None Full Exam - General 1994 Cardiovascular auscultation of heart Overall: regular rate 12/31/2018 None Full Exam - General 1994 Cardiovascular auscultation of heart Overall: normal heart sounds 12/31/2018 None Full Exam - General 1994 Abdomen abdominal exam Overall: normal bowel sounds 12/31/2018 None Full Exam - General 1994 Musculoskeletal gait and station Overall: normal gait 12/31/2018 None Full Exam - General 1994 Musculoskeletal gait and station Overall: normal station 12/31/2018 None Full Exam - General 1994 Musculoskeletal head and neck Overall: head atraumatic 12/31/2018 None Full Exam - General 1994 Neurologic cranial nerves Overall: crainial nerves 2 - 12 grossly intact 12/31/2018 None Full Exam - General 1994 Psychiatric orientation/consciousness Overall: oriented to person, place and time 12/31/2018 None Full Exam - General 1994 Psychiatric mood and affect Overall: normal mood and affect 12/31/2018 None Full Exam - Cardiology Integument inspection/palpation Overall: no rash, lesions 12/31/2018 None Full Exam - General 1994 Constitutional general appearance Overall: well developed 12/26/2018 None Full Exam - General 1994 Constitutional general appearance Overall: in no acute distress 12/26/2018 None Full Exam - General 1994 Constitutional general appearance Overall: well nourished 12/26/2018 None Full Exam - General 1994 Eyes conjunctiva /eyelids Overall: eyelids normal 12/26/2018 None Full Exam - General 1994 Eyes conjunctiva /eyelids Overall: cornea clear 12/26/2018 None Full Exam - General 1994 Eyes conjunctiva /eyelids Overall: conjunctiva clear 12/26/2018 None Full Exam - General 1994 Ears/Nose/Throat lips/teeth/gingiva Overall: benign lips 12/26/2018 None Full Exam - General 1994 Ears/Nose/Throat oral cavity/pharynx/larynx Overall: oral mucosa clear 12/26/2018 None Full Exam - General 1994 Respiratory respiratory effort/rhythm Overall: normal rate 12/26/2018 None Full Exam - General 1994 Respiratory respiratory effort/rhythm Overall: no retractions 12/26/2018 None Full Exam - General 1994 Respiratory auscultation Overall: breath sounds clear bilaterally 12/26/2018 None Full Exam - General 1994 Cardiovascular auscultation of heart Overall: regular rate 12/26/2018 None Full Exam - General 1994 Cardiovascular auscultation of heart Overall: normal heart sounds 12/26/2018 None Full Exam - General 1994 Abdomen abdominal exam Overall: normal bowel sounds 12/26/2018 None Full Exam - General 1994 Musculoskeletal head and neck Overall: head atraumatic 12/26/2018 None Full Exam - General 1994 Musculoskeletal gait and station Overall: normal station 12/26/2018 None Full Exam - General 1994 Musculoskeletal gait and station Overall: normal gait 12/26/2018 None Full Exam - General 1994 Neurologic cranial nerves Overall: crainial nerves 2 - 12 grossly intact 12/26/2018 None Full Exam - General 1994 Psychiatric orientation/consciousness Overall: oriented to person, place and time 12/26/2018 None Full Exam - General 1994 Psychiatric mood and affect Overall: normal mood and affect 12/26/2018 None Full Exam - ENT Constitutional general appearance Overall: well nourished 11/18/2018 None Full Exam - ENT Constitutional general appearance Overall: well developed 11/18/2018 None Full Exam - ENT Constitutional general appearance Overall: in no acute distress 11/18/2018 None Full Exam - ENT Ears/Nose/Throat otoscopic exam Overall: external auditory canals normal 11/18/2018 None Full Exam - ENT Ears/Nose/Throat otoscopic exam Overall: tympanic membranes normal 11/18/2018 None Full Exam - ENT Ears/Nose/Throat oropharynx Overall: oral mucosa clear 11/18/2018 None Full Exam - ENT Face and Head palpation Left maxillary sinus: tender 11/18/2018 --Improved Full Exam - ENT Face and Head palpation Right maxillary sinus: tender 11/18/2018 --Improved Full Exam - ENT Respiratory inspection Overall: no retractions 11/18/2018 None Full Exam - ENT Respiratory inspection Overall: normal rate None Full Exam - ENT Cardiovascular auscultation of heart Overall: regular rate 11/18/2018 None Full Exam - ENT Cardiovascular auscultation of heart Overall: normal heart sounds 11/18/2018 None Full Exam - ENT Lymphatic palpation of lymph nodes Overall: anterior cervical chain benign 11/18/2018 None Full Exam - ENT Lymphatic palpation of lymph nodes Overall: posterior cervical chain benign 11/18/2018 None Full Exam - ENT Musculoskeletal spine, ribs and pelvis Overall: good posture 11/18/2018 None Full Exam - ENT Neurologic orientation Overall: oriented to person, place and time 11/18/2018 None Full Exam - ENT Respiratory auscultation Overall: breath sounds clear bilaterally 11/18/2018 None Full Exam - ENT Constitutional general appearance Overall: well nourished 11/12/2018 None Full Exam - ENT Constitutional general appearance Overall: well developed 11/12/2018 None Full Exam - ENT Constitutional general appearance Overall: in no acute distress 11/12/2018 None Full Exam - ENT Ears/Nose/Throat otoscopic exam Overall: external auditory canals normal 11/12/2018 None Full Exam - ENT Ears/Nose/Throat otoscopic exam Overall: tympanic membranes normal 11/12/2018 None Full Exam - ENT Ears/Nose/Throat oropharynx Overall: oral mucosa clear 11/12/2018 None Full Exam - ENT Face and Head palpation Left maxillary sinus: tender 11/12/2018 None Full Exam - ENT Face and Head palpation Right maxillary sinus: tender 11/12/2018 None Full Exam - ENT Respiratory inspection Overall: no retractions 11/12/2018 None Full Exam - ENT Respiratory inspection Overall: normal rate 06/2019 None Full Exam - ENT Cardiovascular auscultation of heart Overall: regular rate 11/12/2018 None Full Exam - ENT Cardiovascular auscultation of heart Overall: normal heart sounds 11/12/2018 None Full Exam - ENT Lymphatic palpation of lymph nodes Overall: anterior cervical chain benign 11/12/2018 None Full Exam - ENT Lymphatic palpation of lymph nodes Overall: posterior cervical chain benign 11/12/2018 None Full Exam - ENT Musculoskeletal spine, ribs and pelvis Overall: good posture 11/12/2018 None Full Exam - ENT Neurologic orientation Overall: oriented to person, place and time 11/12/2018 None Full Exam - ENT Respiratory auscultation Diffuse: expiratory wheezes 11/12/2018 and deep cough Full Exam - ENT Constitutional general appearance Overall: well nourished 10/30/2018 None Full Exam - ENT Constitutional general appearance Overall: well developed 10/30/2018 None Full Exam - ENT Constitutional general appearance Overall: in no acute distress 10/30/2018 None Full Exam - ENT Ears/Nose/Throat otoscopic exam Overall: external auditory canals normal 10/30/2018 None Full Exam - ENT Ears/Nose/Throat otoscopic exam Overall: tympanic membranes normal 10/30/2018 None Full Exam - ENT Ears/Nose/Throat oropharynx Overall: oral mucosa clear 10/30/2018 None Full Exam - ENT Face and Head palpation Left maxillary sinus: tender 10/30/2018 None Full Exam - ENT Face and Head palpation Right maxillary sinus: tender 10/30/2018 None Full Exam - ENT Respiratory inspection Overall: no retractions 10/30/2018 None Full Exam - ENT Respiratory inspection Overall: normal rate None Full Exam - ENT Respiratory auscultation Overall: breath sounds clear bilaterally 10/30/2018 with deep cough Full Exam - ENT Cardiovascular auscultation of heart Overall: regular rate 10/30/2018 None Full Exam - ENT Cardiovascular auscultation of heart Overall: normal heart sounds 10/30/2018 None Full Exam - ENT Lymphatic palpation of lymph nodes Overall: anterior cervical chain benign 10/30/2018 None Full Exam - ENT Lymphatic palpation of lymph nodes Overall: posterior cervical chain benign 10/30/2018 None Full Exam - ENT Musculoskeletal spine, ribs and pelvis Overall: good posture 10/30/2018 None Full Exam - ENT Neurologic orientation Overall: oriented to person, place and time 10/30/2018 None Full Exam - Orthopedics Constitutional general appearance Overall: well nourished 10/24/2018 None Full Exam - Orthopedics Constitutional general appearance Overall: well developed 10/24/2018 None Full Exam - Orthopedics Constitutional general appearance Overall: in no acute distress 10/24/2018 None Full Exam - Orthopedics Psychiatric orientation/consciousness Overall: oriented to person, place and time 10/24/2018 None Full Exam - Orthopedics MS: right upper extremity insp & palp - RUE Long finger: tenderness 10/24/2018 None Full Exam - Orthopedics MS: right upper extremity range of motion - RUE Long finger: decreased flexion at the PIP joint 10/24/2018 None Full Exam - Orthopedics MS: right upper extremity range of motion - RUE Long finger: decreased extension at the PIP joint 10/24/2018 None Full Exam - Orthopedics MS: right upper extremity range of motion - RUE Long finger: decreased extension at the MCP joint 10/24/2018 None Full Exam - Orthopedics MS: right upper extremity range of motion - RUE Long finger: decreased flexion at the MCP joint 10/24/2018 None Full Exam - Orthopedics MS: right upper extremity range of motion - RUE Long finger: pain with flexion at the MCP joint 10/24/2018 None Full Exam - Orthopedics MS: right upper extremity range of motion - RUE Long finger: pain with extension at the MCP joint 10/24/2018 None Full Exam - Orthopedics MS: right upper extremity range of motion - RUE Index finger: pain with flexion at the MCP joint 10/24/2018 None Full Exam - Orthopedics MS: right upper extremity range of motion - RUE Index finger: pain with extension at the MCP joint 10/24/2018 None Full Exam - Orthopedics MS: right upper extremity range of motion - RUE Index finger: decreased extension at the MCP joint 10/24/2018 None Full Exam - Orthopedics MS: right upper extremity range of motion - RUE Index finger: decreased flexion at the MCP joint 10/24/2018 None Full Exam - General 1994 Constitutional general appearance Overall: well developed 10/23/2018 None Full Exam - General 1994 Constitutional general appearance Overall: in no acute distress 10/23/2018 None Full Exam - General 1994 Constitutional general appearance Overall: well nourished 10/23/2018 None Full Exam - General 1994 Eyes conjunctiva /eyelids Overall: conjunctiva clear 10/23/2018 None Full Exam - General 1994 Eyes pupils and irises Overall: pupils equal, round, reactive to light and accomodation 10/23/2018 None Full Exam - General 1994 Ears/Nose/Throat otoscopic exam Overall: external auditory canals clear 10/23/2018 None Full Exam - General 1994 Ears/Nose/Throat otoscopic exam Overall: tympanic membranes clear 10/23/2018 None Full Exam - General 1994 Ears/Nose/Throat oral cavity/pharynx/larynx Overall: oral mucosa clear 10/23/2018 None Full Exam - General 1994 Respiratory auscultation Overall: breath sounds clear bilaterally 10/23/2018 None Full Exam - General 1994 Respiratory respiratory effort/rhythm Overall: no retractions 10/23/2018 None Full Exam - General 1994 Respiratory respiratory effort/rhythm Overall: normal rate 10/23/2018 None Full Exam - General 1994 Cardiovascular auscultation of heart Overall: regular rate 10/23/2018 None Full Exam - General 1994 Cardiovascular auscultation of heart Overall: normal heart sounds 10/23/2018 None Full Exam - General 1994 Abdomen abdominal exam Overall: no tenderness 10/23/2018 None Full Exam - General 1994 Abdomen abdominal exam Overall: normal bowel sounds 10/23/2018 None Full Exam - General 1994 Lymphatic neck nodes Overall: anterior cervical chain benign 10/23/2018 None Full Exam - General 1994 Lymphatic neck nodes Overall: posterior cervical chain benign 10/23/2018 None Full Exam - Cardiology Integument inspection/palpation Location: right hand 10/23/2018 erythema swelling 2nd MCP joint right hand Full Exam - Cardiology Integument inspection/palpation Location: left foot 10/23/2018 ulcer of left heel Full Exam - General 1994 Neurologic cranial nerves Overall: crainial nerves 2 - 12 grossly intact 10/23/2018 None Full Exam - General 1994 Psychiatric orientation/consciousness Overall: oriented to person, place and time 10/23/2018 None Full Exam - General 1994 Constitutional general appearance Overall: well developed 10/21/2018 None Full Exam - General 1994 Constitutional general appearance Overall: in no acute distress 10/21/2018 None Full Exam - General 1994 Constitutional general appearance Overall: well nourished 10/21/2018 None Full Exam - General 1994 Eyes conjunctiva /eyelids Overall: conjunctiva clear 10/21/2018 None Full Exam - General 1994 Eyes pupils and irises Overall: pupils equal, round, reactive to light and accomodation 10/21/2018 None Full Exam - General 1994 Ears/Nose/Throat otoscopic exam Overall: external auditory canals clear 10/21/2018 None Full Exam - General 1994 Ears/Nose/Throat otoscopic exam Overall: tympanic membranes clear 10/21/2018 None Full Exam - General 1994 Ears/Nose/Throat oral cavity/pharynx/larynx Overall: oral mucosa clear 10/21/2018 None Full Exam - General 1994 Respiratory auscultation Overall: breath sounds clear bilaterally 10/21/2018 None Full Exam - General 1994 Respiratory respiratory effort/rhythm Overall: no retractions 10/21/2018 None Full Exam - General 1994 Respiratory respiratory effort/rhythm Overall: normal rate 10/21/2018 None Full Exam - General 1994 Cardiovascular auscultation of heart Overall: regular rate 10/21/2018 None Full Exam - General 1994 Cardiovascular auscultation of heart Overall: normal heart sounds 10/21/2018 None Full Exam - General 1994 Abdomen abdominal exam Overall: no tenderness 10/21/2018 None Full Exam - General 1994 Abdomen abdominal exam Overall: normal bowel sounds 10/21/2018 None Full Exam - General 1994 Lymphatic neck nodes Overall: anterior cervical chain benign 10/21/2018 None Full Exam - General 1994 Lymphatic neck nodes Overall: posterior cervical chain benign 10/21/2018 None Full Exam - General 1994 Integument inspection of skin Overall: no rash, lesions 10/21/2018 None Full Exam - General 1994 Neurologic cranial nerves Overall: crainial nerves 2 - 12 grossly intact 10/21/2018 None Full Exam - General 1994 Psychiatric orientation/consciousness Overall: oriented to person, place and time 10/21/2018 None Full Exam - Cardiology Integument inspection/palpation Location: right hand 10/21/2018 erythema swelling 2nd MCP joint right hand Full Exam - Cardiology Integument inspection/palpation Location: left foot 10/21/2018 ulcer of left heel Full Exam - Dermatology Constitutional general appearance [...] lips 07/16/2018 None Full Exam - General 1995 [...] Codes Date KETOROLAC TROMETHAMINE INJ CPT-4: J1885 10/21/2018 TRIAMCINOLONE ACET INJ NOS CPT-4: J3301 09/30/2018 THER/PROPH/DIAG INJ SC/IM CPT-4: 88165 09/11/2018 TRIAMCINOLONE ACET INJ NOS CPT-4: J3301 09/11/2018 IMMUNIZATION ADMIN CPT -4: 68394 07/22/2018 FLU VAC NO PRSV 4 MENA 3 YRS+ CPT-4: 02442 07/22/2018 TRIAMCINOLONE ACET INJ NOS CPT-4: J3301 06/28/2018 KETOROLAC TROMETHAMINE INJ CPT-4: J1885 05/02/2018 FLU VAC NO PRSV 4 MENA 3 YRS+ CPT-4: 28644 08/16/2017 IMMUNIZATION ADMIN CPT -4: 63185 08/16/2017 URINALYSIS NONAUTO W/O SCOPE CPT-4: 87982 06/21/2017 TRIAMCINOLONE ACET INJ NOS CPT-4: J3301 05/04/2017 THER/PROPH/DIAG INJ SC/IM CPT-4: 96664 05/04/2017 TRIAMCINOLONE ACET INJ NOS CPT-4: J3301 02/16/2017 ROCEPHIN, PER 250 MG CPT-4: J0696 02/16/2017 ROCEPHIN, PER 250 MG CPT-4: J0696 10/06/2016 URINALYSIS NONAUTO W/O SCOPE CPT-4: 29410 07/18/2016 TRIAMCINOLONE ACET INJ NOS CPT-4: J3301 01/20/2016 Vital Signs Date Vital 12/31/2018 Blood Pressure 1: 122/70 Code : 8480-6 BMI: 34.4 Code : 27373-3 Heart Rate 1 : 90 bpm Height: 6'2" SpO2: 97% Temperature: 36.6 (C) / 97.8 (F) Weight: 268 lbs 12/26/2018 Blood Pressure 1: 118/72 Code : 8480-6 BMI: 34.4 Code : 47067-7 Heart Rate 1 : 82 bpm Height: 6'2" SpO2: 98% Temperature: 36.6 (C) / 97.9 (F) Weight: 268 lbs 11/18/2018 Blood Pressure 1: 120/84 Code : 8480-6 BMI: 33.9 Code : 74484-5 Heart Rate 1 : 77 bpm Height: 6'2" SpO2: 99% Temperature: 36.7 (C) / 98.1 (F) Weight: 264 lbs 11/12/2018 Blood Pressure 1: 138/76 Code : 8480-6 BMI: 33.9 Code : 92217-9 Heart Rate 1 : 91 bpm Height: 6'2" SpO2: 99% Weight: 264 lbs 10/30/2018 Blood Pressure 1: 130/72 Code : 8480-6 BMI: 33.3 Code : 90453-0 Heart Rate 1 : 83 bpm Height: 6'2" SpO2: 95% Temperature: 36.5 (C) / 97.7 (F) Weight: 259 lbs 10/24/2018 Blood Pressure 1: 130/70 Code : 8480-6 Heart Rate 1: 95 bpm Height: 6'2" SpO2: 96% 10/23/2018 Blood Pressure 1: 100/70 Code : 8480-6 Blood Pressure 2: 102/70 Code: 8480-6 BMI: 33.3 Code: 61702-1 Heart Rate 1: 106 bpm Height: 6'2" SpO2: 98% Weight: 259 lbs 10/21/2018 Blood Pressure 1: 140/90 Code : 8480-6 BMI: 32.9 Code : 25383-6 Heart Rate 1 : 96 bpm Height: 6'2" SpO2: 92% Weight: 256 lbs 10/17/2018 Blood Pressure 1: 110/68 Code : 8480-6 BMI: 32.9 Code : 52247-4 Heart Rate 1 : 82 bpm Height: 6'2" SpO2: 97% Weight: 256 lbs 10/14/2018 Blood Pressure 1: 124/70 Code : 8480-6 BMI: 33.6 Code : 14452-5 Heart Rate 1 : 76 bpm Height: 6'2" SpO2: 99% Temperature: 36.3 (C) / 97.3 (F) Weight: 262 lbs 09/30/2018 Blood Pressure 1: 138/82 Code : 8480-6 BMI: 33.6 Code : 83990-4 Heart Rate 1 : 82 bpm Height: 6'2" SpO2: 98% Temperature: 36.3 (C) / 97.3 (F) Weight: 262 lbs 09/09/2018 Blood Pressure 1: 140/80 Code : 8480-6 BMI: 33.0 Code : 69013-5 Heart Rate 1 : 97 bpm Height: 6'2" SpO2: 93% Temperature: 36.8 (C) / 98.2 (F) Weight: 257 lbs 07/22/2018 Blood Pressure 1: 120/78 Code : 8480-6 BMI: 31.6 Code : 73392-1 Heart Rate 1 : 87 bpm Height: 6'2" SpO2: 98% Weight: 246 lbs 07/16/2018 Blood Pressure 1: 132/74 Code : 8480-6 BMI: 31.2 Code : 64141-8 Heart Rate 1 : 90 bpm Height: 6'2" SpO2: 96% Weight: 243 lbs 07/01/2018 Blood Pressure 1: 142/82 Code : 8480-6 BMI: 31.8 Code : 00379-7 Heart Rate 1 : 88 bpm Height: 6'2" SpO2: 98% Weight: 248 lbs 06/28/2018 Blood Pressure 1: 132/76 Code : 8480-6 BMI: 31.8 Code : 28844-5 Heart Rate 1 : 107 bpm Height: 6'2" SpO2: 98% Temperature: 37.9 (C) / 100.3 (F) Weight: 248 lbs 06/18/2018 Blood Pressure 1: 138/82 Code : 8480-6 BMI: 31.8 Code : 21798-4 Heart Rate 1 : 82 bpm Height: 6'2" SpO2: 97% Weight: 248 lbs 06/04/2018 Blood Pressure 1: 128/84 Code : 8480-6 BMI: 33.9 Code : 98751-7 Heart Rate 1 : 86 bpm Height: 6'2" SpO2: 95% Weight: 264 lbs 05/13/2018 Blood Pressure 1: 130/80 Code : 8480-6 BMI: 31.1 Code : 39315-4 Heart Rate 1 : 100 bpm Height: 6'2" SpO2: 94% Weight: 242 lbs 05/02/2018 Blood Pressure 1: 134/84 Code : 8480-6 BMI: 31.2 Code : 52918-3 Heart Rate 1 : 93 bpm Height: 6'2" SpO2: 98% Weight: 243 lbs 04/29/2018 Blood Pressure 1: 142/88 Code : 8480-6 BMI: 31.6 Code : 64036-7 Heart Rate 1 : 96 bpm Height: 6'2" SpO2: 96% Temperature: 36.7 (C) / 98.1 (F) Weight: 246 lbs 03/13/2018 Blood Pressure 1: 120/76 Code : 8480-6 BMI: 30.9 Code : 78768-4 Heart Rate 1 : 112 bpm Height: 6'2" SpO2: 97% Weight: 241 lbs 03/07/2018 Blood Pressure 1: 108/78 Code : 8480-6 BMI: 30.0 Code : 22106-3 Heart Rate 1 : 87 bpm Height: 6'2" SpO2: 98% Weight: 234 lbs 02/28/2018 Blood Pressure 1: 106/74 Code : 8480-6 BMI: 30.0 Code : 76908-4 Heart Rate 1 : 101 bpm Height: 6'2" SpO2: 98% Temperature: 36.4 (C) / 97.5 (F) Weight: 234 lbs 02/13/2018 Blood Pressure 1: 110/78 Code : 8480-6 BMI: 30.0 Code : 86862-8 Heart Rate 1 : 106 bpm Height: 6'2" SpO2: 98% Weight: 234 lbs 01/29/2018 Blood Pressure 1: 106/68 Code : 8480-6 BMI: 30.0 Code : 93647-1 Heart Rate 1 : 108 bpm Height: 6'2" SpO2: 98% Weight: 234 lbs 08/27/2017 Blood Pressure 1: 134/76 Code : 8480-6 Heart Rate 1: 98 bpm Height: SpO2: 97% Weight: 08/16/2017 Blood Pressure 1: 128/80 Code : 8480-6 BMI: 32.0 Code : 82821-1 Heart Rate 1 : 94 bpm Height: [...] Code : 8480-6 BMI: 31.8 Code : 34161-8 Heart Rate 1 : 102 bpm Height: [...] Code : 8480-6 BMI: 31.8 Code : 59895-9 Heart Rate 1 : 85 bpm Height: 6'2" SpO2: 96% Temperature: 36.6 (C) / 97.9 (F) Weight: 248 lbs 02/12/2017 Blood Pressure 1: 126/76 Code : 8480-6 BMI: 31.8 Code : 64243-9 Heart Rate 1 : 106 bpm Height: 6'2" SpO2: 91% Weight: 248 lbs 02/05/2017 Blood Pressure 1: 146/86 Code : 8480-6 BMI: 31.9 Code : 41851-1 Heart Rate 1 : 98 bpm Height: 6'2" SpO2: 87% Temperature: 36.7 (C) / 98.0 (F) Weight: 248 lbs 8 oz 01/29/2017 Blood Pressure 1: 132/84 Code : 8480-6 BMI: 31.8 Code : 65429-1 Heart Rate 1 : 83 bpm Height: 6'2" SpO2: 97% Weight: 248 lbs 10/13/2016 Blood Pressure 1: 128/72 Code : 8480-6 Heart Rate 1: 86 bpm SpO2: 94% 10/09/2016 Blood Pressure 1: 128/68 Code : 8480-6 Heart Rate 1: 136 bpm SpO2: 94% Temperature: 36.8 (C) / 98.2 (F) 10/06/2016 Blood Pressure 1: 140/80 Code : 8480-6 BMI: 32.1 Code : 98016-9 Heart Rate 1 : 94 bpm Height: 6'2" SpO2: 95% Weight: 250 lbs 07/18/2016 Blood Pressure 1: 128/86 Code : 8480-6 BMI: 32.1 Code : 72774-8 Heart Rate 1 : 89 bpm Height: 6'2" SpO2: 96% Weight: 250 lbs 06/22/2016 Blood Pressure 1: 118/70 Code : 8480-6 BMI: 32.1 Code : 22694-0 Heart Rate 1 : 70 bpm Height: 6'2" SpO2: 97% Weight: 250 lbs 05/23/2016 Blood Pressure 1: 128/80 Code : 8480-6 BMI: 32.1 Code : 57666-1 Heart Rate 1 : 76 bpm Height: 6'2" SpO2: 98% Weight: 250 lbs 05/15/2016 Blood Pressure 1: 110/90 Code : 8480-6 BMI: 31.3 Code : 65083-4 Heart Rate 1 : 111 bpm Height: 6'2" SpO2: 97% Temperature: 36.6 (C) / 97.8 (F) Weight: 244 lbs 01/20/2016 Blood Pressure 1: 128/76 Code : 8480-6 BMI: 33.0 Code : 17352-5 Heart Rate 1 : 103 bpm Height: 6'2" SpO2: 95% Weight: 257 lbs Functional Status No Functional Status data History of Present Illness Symptom Name Status Result Effective Date Notes Location diffusely None Quality aching 2018 None Quality heavy 2018 None Quality constant None Onset and Resolution sudden in onset 12/31/2018 None Onset of Symptom 1 weeks ago 12/31/2018 None Onset of Symptom 1 weeks ago 12/31/2018 None Limitation on Activities moderately limits activities 12/31/2018 None Frequency of Episodes increasing 12/31/2018 None Triggers activity None Exacerbating Factors exertion 12/31/2018 None Location on the left side of on the chest 12/26/2018 None Radiating the left arm 12/26/2018 None Radiating the back None Quality aching 2018 None Pertinent Findings cough 12/26/2018 None Pertinent Findings Denies dyspnea 12/26/2018 None Quality acute 2018 None Quality intermittent 11/18/2018 None Quality productive None Onset and Resolution ongoing 11/18/2018 None Onset of Symptom ~2 months ago 11/18/2018 None Limitation on Activities moderately limits activities 11/18/2018 None Frequency of Episodes daily 11/18/2018 None Frequency of Episodes unchanged 11/18/2018 None Significant Medications albuterol 11/18/2018 None Triggers no known associated factors 11/18/2018 None Pertinent Findings chest discomfort 11/18/2018 feels tight Pertinent Findings dyspnea 11/18/2018 None Pertinent Findings Denies fever 11/18/2018 None Pertinent Findings post nasal drip 11/18/2018 None Pertinent Findings sputum production 11/18/2018 None Quality productive None Onset and Resolution ongoing 11/12/2018 None Limitation on Activities moderately limits activities 11/12/2018 None Pertinent Findings chest discomfort 11/12/2018 feels tight Pertinent Findings dyspnea 11/12/2018 None Pertinent Findings Denies fever 11/12/2018 None Quality acute 2018 None Quality intermittent 11/12/2018 None Onset of Symptom ~2 months ago 11/12/2018 None Frequency of Episodes daily 11/12/2018 None Pertinent Findings sputum production 11/12/2018 None Pertinent Findings post nasal drip 11/12/2018 None Frequency of Episodes unchanged 11/12/2018 None Significant Medications albuterol 11/12/2018 None Triggers no known associated factors 11/12/2018 None Location in the throat 10/30/2018 None Quality productive None Onset and Resolution ongoing 10/30/2018 None Onset of Symptom 6 weeks ago 10/30/2018 None Limitation on Activities moderately limits activities 10/30/2018 None Pertinent Findings chest discomfort 10/30/2018 feels tight Pertinent Findings dyspnea 10/30/2018 None Pertinent Findings Denies fever 10/30/2018 None Pertinent Findings hoarseness 10/30/2018 None Limitation on Activities is incapacitating 10/24/2018 None Location in the right index fingertip pad 10/24/2018 None Location in the right middle finger 10/24/2018 None Onset of Symptom 5 days ago 10/24/2018 None Pertinent Findings decreased range of motion 10/24/2018 None Pertinent Findings swelling 10/24/2018 None Location on the right 10/23/2018 2nd MCP Quality throbbing cramping Onset and Resolution sudden in onset 10/23/2018 None Onset of Symptom 3 days ago 10/23/2018 None Frequency of Episodes daily 10/23/2018 None Limitation on Activities moderately limits activities 10/23/2018 None Severity moderate None Significant Medical Conditions diabetes mellitus 10/23/2018 None Pertinent Findings decreased range of motion 10/23/2018 None Pertinent Findings pain with movement 10/23/2018 None Pertinent Findings redness 10/23/2018 None Pertinent Findings swelling 10/23/2018 None Onset of Symptom onset as an adult 10/23/2018 None Quality insulin dependent 10/23/2018 None Quality chronic 10/23 None Significant Medications insulin 10/23/2018 None Alleviating Factors medication 10/23/2018 None Exacerbating Factors diet 10/23/2018 None Nutrition regular diet 10/23/2018 None Pertinent Findings Denies dizziness 10/23/2018 None Quality chronic 10/23 None Quality primary hypertension 10/23/2018 None Quality stable 2017 None Onset and Resolution ongoing 10/23/2018 None Onset of Symptom during adulthood 10/23/2018 None Blood Pressure Values not checking blood pressure at home 10/23/2018 None Alleviating Factors medication 10/23/2018 None Test results Pt checking blood glucose readings, did not bring results to clinic 10/23/2018 (Has been over 200 due to steroids and other medications) Glucose monitoring fasting 10/23/2018 and as needed Quality productive None Onset and Resolution ongoing 10/23/2018 None Quality acute 2017 None Quality intermittent 10/23/2018 None Frequency of Episodes daily 10/23/2018 None Onset of Symptom 1+ months ago 10/23/2018 None Pertinent Findings sputum production 10/23/2018 (milky white, green, blood specks ) Pertinent Findings dyspnea 10/23/2018 None Frequency of Episodes unchanged 10/23/2018 None Pertinent Findings Denies edema 10/23/2018 None Significant Medications albuterol 10/23/2018 None Significant Medications steroids 10/23/2018 None Location on the right 10/21/2018 2nd MCP Quality throbbing cramping Onset and Resolution sudden in onset 10/21/2018 None Onset of Symptom 1 days ago 10/21/2018 None Frequency of Episodes daily 10/21/2018 None Pertinent Findings decreased range of motion 10/21/2018 None Pertinent Findings pain with movement 10/21/2018 None Pertinent Findings redness 10/21/2018 None Pertinent Findings swelling 10/21/2018 None Limitation on Activities moderately limits activities 10/21/2018 None Severity moderate None Significant Medical Conditions diabetes mellitus 10/21/2018 None Sports Participation not significant 10/21/2018 None Location on the right 10/17/2018 None Location [...] data Encounters Encounter Performer Location Codes Date ([id number]) [id number] EST. PATIENT, LEVEL IV Diagnosis: Type 2 diabetes mellitus with hyperglycemia[ICD10: E11.65] Diagnosis: Epigastric pain[ICD10: R10.13] Diagnosis: Pain in joints of right hand[ICD10: M25.541] Diagnosis: Shortness of breath[ICD10: R06.02] Marcela Ha MD, [facility] CPT-4: 56696 12/31/2018 [id number] EST. PATIENT, LEVEL III Diagnosis: Other chest pain[ICD10: R07.89] Diagnosis: Cough[ICD10: R05] Madeline Ha MD, [facility] CPT-4: 91149 12/26/2018 ([id number]) 28807 EST. PATIENT, LEVEL III Diagnosis: Cough[ICD10: R05] Melida Ha MD, [facility] CPT-4: 34182 11/18/2018 ([id number]) 44511 EST. PATIENT, LEVEL III Diagnosis: Cough[ICD10: R05] Diagnosis: Pneumonia due to other Gram-negative bacteria[ICD10: J15.6] Marcela Ha MD, [facility] CPT-4: 06432 11/12/2018 ([id number]) 99361 EST. PATIENT, LEVEL III Diagnosis: Pneumonia due to other Gram-negative bacteria[ICD10: J15.6] Diagnosis: Cough[ICD10: R05] Melida Ha MD, [facility] CPT-4: 90241 10/30/2018 ([id number]) 94273 EST. PATIENT, LEVEL II Diagnosis: Pain in joints of right hand[ICD10: M25.541] Diagnosis: Trigger finger, right middle finger[ICD10: M65.331] Marcela Ha MD, [facility] CPT-4: 71332 10/24/2018 ([id number]) 45832 EST. PATIENT, LEVEL IV Diagnosis: Essential (primary) hypertension[ICD10: I10] Diagnosis: Type 2 diabetes mellitus with foot ulcer[ICD10: E11.621] Melida Ha MD, [facility] CPT-4: 48993 10/23/2018 ([id number]) 23879 EST. PATIENT, LEVEL III Diagnosis: Cellulitis of right finger[ICD10: L03.011] Diagnosis: Type 2 diabetes mellitus with foot ulcer[ICD10: E11.621] Diagnosis: Pain in right hand[ICD10: M79.641] Melida Ha MD, [facility] CPT-4: 66804 10/21/2018 34741 EST. PATIENT, LEVEL III Diagnosis: Spontaneous ecchymoses[ICD10: R23.3] Diagnosis: Cellulitis of right lower limb[ICD10: L03.115] Diagnosis: Cellulitis of left lower limb[ICD10: L03.116] Madeline Ha MD, [facility] CPT-4: 91509 10/17/2018 ([id number]) 11968 EST. PATIENT, LEVEL III Diagnosis: Cough[ICD10: R05] Diagnosis: Acute bronchitis, unspecified[ICD10: J20.9] Melida Ha MD, [facility] CPT-4: 94067 10/14/2018 [id number] EST. PATIENT, LEVEL III Diagnosis: Acute laryngopharyngitis[ICD10: J06.0] Diagnosis: Cough[ICD10: R05] Madeline Ha MD, [facility] CPT-4: 13719 09/30/2018 ([id number]) 47486 EST. PATIENT, LEVEL III Diagnosis: Acute recurrent maxillary sinusitis[ICD10: J01.01] Diagnosis: Cough[ICD10: R05] Diagnosis: Type 2 diabetes mellitus with hyperglycemia[ICD10: E11.65] Marcela Ha MD, [facility] CPT-4: 45727 09/09/2018 ([id number]) 60951 EST. PATIENT, LEVEL IV Diagnosis: Essential (primary) hypertension[ICD10: I10] Diagnosis: Mixed hyperlipidemia[ICD10: E78.2] Diagnosis: Bipolar disorder, current episode depressed, moderate[ICD10: F31.32] Diagnosis: Type 2 diabetes mellitus with other specified complication[ICD10: E11.69] Melida Ha MD, [facility] CPT-4: 26720 2017 ([id number]) 07928 EST. PATIENT, LEVEL III Diagnosis: Insomnia due to medical condition[ICD10: G47.01] Marcela Ha MD [facility] CPT-4: 38222 07/16/2018 ([id number]) Miscellaneous no charge Diagnosis: Cough[ICD10: R05] Madeline Ha MD [facility] CPT-4: 78571 07/01/2018 [id number] EST. PATIENT, LEVEL III Diagnosis: Cough[ICD10: R05] Diagnosis: Acute laryngopharyngitis[ICD10: J06.0] Diagnosis: Other allergic rhinitis[ICD10: J30.89] Madeline Ha MD [facility] CPT-4: 83611 06/28/2018 ([id number]) 91636 EST. PATIENT, LEVEL IV Diagnosis: Type 2 diabetes mellitus with hyperglycemia[ICD10: E11.65] Diagnosis: Essential (primary) hypertension[ICD10: I10] Melida Ha MD, [facility] CPT-4: 93655 06/18/2018 ([id number]) 79952 EST. PATIENT, LEVEL IV Diagnosis: Type 2 diabetes mellitus with hyperglycemia[ICD10: E11.65] Diagnosis: Essential (primary) hypertension[ICD10: I10] Diagnosis: Localized edema[ICD10: R60.0] Melida Ha MD, [facility] CPT- 4: 16106 06/04/2018 ([id number]) 30151 EST. PATIENT, LEVEL III Diagnosis: Type 2 diabetes mellitus with hyperglycemia[ICD10: E11.65] Diagnosis: Myalgia[ICD10: M79.1] Diagnosis: Pain in right hip[ICD10: M25.551] Diagnosis: Pain in left hip[ICD10: M25.552] Marcela Ha MD, [facility] CPT-4: 97102 05/13/2018 ([id number]) 26665 EST. PATIENT, LEVEL III Diagnosis: Myalgia[ICD10: M79.1] Diagnosis: Pain in right hip[ICD10: M25.551] Diagnosis: Pain in left hip[ICD10: M25.552] Marcela Ha MD, [facility] CPT-4: 61880 05/02/[id number]) [id number] EST. PATIENT, LEVEL IV Diagnosis: Essential (primary) hypertension[ICD10: I10] Diagnosis: Type 2 diabetes mellitus with hyperglycemia[ICD10: E11.65] Diagnosis: Major depressive disorder, single episode, moderate[ICD10: F32.1] Diagnosis: Myalgia[ICD10: M79.1] Marcela Ha MD, [facility] CPT-4: 56386 04/29/2018 ([id number]) 42236 EST. PATIENT, LEVEL IV Diagnosis: Type 2 diabetes mellitus with hyperglycemia[ICD10: E11.65] Diagnosis: Essential (primary) hypertension[ICD10: I10] Diagnosis: Major depressive disorder, single episode, moderate[ICD10: F32.1] Melida Ha MD, [facility] CPT-4: 20487 03/13/2018 ([id number]) 44933 EST. PATIENT, LEVEL III Diagnosis: Type 2 diabetes mellitus with hyperglycemia[ICD10: E11.65] Diagnosis: Bipolar disorder, current episode depressed, moderate[ICD10: F31.32] Diagnosis: Orthostatic hypotension[ICD10: I95.1] Marcela Ha MD, [facility] CPT-4: 73628 03/07/2018 ([id number]) 67877 EST. PATIENT, LEVEL IV Diagnosis: Type 2 diabetes mellitus with hyperglycemia[ICD10: E11.65] Diagnosis: Major depressive disorder, single episode, moderate[ICD10: F32.1] Diagnosis: Orthostatic hypotension[ICD10: I95.1] Diagnosis: Other fatigue[ICD10: R53.83] Marcela Ha MD, [facility] CPT-4: 83423 02/28/2018 [id number] EST. PATIENT, LEVEL IV Diagnosis: Other fatigue[ICD10: R53.83] Diagnosis: Other malaise[ICD10: R53.81] Diagnosis: Gastro-esophageal reflux disease without esophagitis[ICD10: K21.9] Madeline Ha MD, [facility] CPT-4: 96933 02/13/2018 ([id number]) 37141 EST. PATIENT, LEVEL IV Diagnosis: Type 2 diabetes mellitus with foot ulcer[ICD10: E11.621] Diagnosis: Essential (primary) hypertension[ICD10: I10] Diagnosis: Gastro-esophageal reflux disease without esophagitis[ICD10: K21.9] Marcela Ha MD, [facility] CPT-4: 18904 01/29/2018 26068 EST. PATIENT, LEVEL III Diagnosis: Other malaise[ICD10: R53.81] Diagnosis: Other fatigue[ICD10: R53.83] Diagnosis: Pain in right shoulder[ICD10: M25.511] Diagnosis: Pain in left shoulder[ICD10: M25.512] Madeline Ha MD, [facility] CPT-4: 44129 08/27/2017 ([id number]) 54415 EST. PATIENT, LEVEL IV Diagnosis: Essential (primary) hypertension[ICD10: I10] Diagnosis: Type 2 diabetes mellitus with hyperglycemia[ICD10: E11.65] Diagnosis: VACCIN FOR INFLUENZA[ICD10: Z23] Melida Ha MD, [facility] CPT-4: 50700 08/16/2017 33646 EST. PATIENT, LEVEL III Diagnosis: Zoster without complications[ICD10: B02.9] Madeline Ha MD, [facility] CPT-4: 04595 07/26/2017 ([id number]) 18047 EST. PATIENT, LEVEL III Diagnosis: Cellulitis of right lower limb[ICD10: L03.115] Marcela Ha MD, [facility] CPT-4: 45449 07/03/2017 52829 EST. PATIENT, LEVEL II Diagnosis: Laceration without foreign body of left forearm, initial encounter[ ICD10: S51.812A] Marcela Ha MD, [facility] CPT-4: 33601 06/29/2017 ([id number]) 50978 EST. PATIENT, LEVEL III Diagnosis: Cellulitis of right lower limb[ICD10: L03.115] Diagnosis: Type 2 diabetes mellitus with foot ulcer[ICD10: E11.621] Marcela Ha MD , [facility] CPT-4: 55176 06/18/2017 ([id number]) 89475 EST. PATIENT, LEVEL IV Diagnosis: Cellulitis of right lower limb[ICD10: L03.115] Diagnosis: Acute laryngopharyngitis[ICD10: J06.0] Diagnosis: Gastro-esophageal reflux disease without esophagitis[ICD10: K21.9] Marcela Ha MD, [facility] CPT-4: 30880 06/07/2017 ([id number]) 21647 EST. PATIENT, LEVEL III Diagnosis: Type 2 diabetes mellitus with hyperglycemia[ICD10: E11.65] Diagnosis: Insect bite (nonvenomous) of abdominal wall, initial encounter[ICD10 : S30.861A] Marcela Ha MD, [facility] CPT-4: 53046 05/17/2017 ([id number]) 73768 EST. PATIENT, LEVEL III Diagnosis: Allergic contact dermatitis due to plants, except food[ICD10: L23.7] Melida Ha MD, [facility] CPT-4: 81300 05/04/2017 ([id number]) 08830 EST. PATIENT, LEVEL III Diagnosis: Essential (primary) hypertension[ICD10: I10] Marcela Ha MD, [facility] CPT-4: 73330 03/15/2017 ([id number]) 87156 EST. PATIENT, LEVEL III Diagnosis: Cough[ICD10: R05] Diagnosis: Essential (primary) hypertension[ICD10: I10] Marcela Ha MD, [facility] CPT-4: 27532 03/01/2017 ([id number]) 72343 EST. PATIENT, LEVEL III Diagnosis: Cough[ICD10: R05] Diagnosis: Nasal congestion[ICD10: R09.81] Diagnosis: Acute recurrent maxillary sinusitis[ICD10: J01.01] Marcela Ha MD, [facility] CPT-4: 58839 02/16/2017 ([id number]) 10306 EST. PATIENT, LEVEL III Diagnosis: Type 2 diabetes mellitus with hyperglycemia[ICD10: E11.65] Marcela Ha MD, [facility] CPT-4: 91117 02/12/2017 ([id number]) 80573 EST. PATIENT, LEVEL IV Diagnosis: Type 2 diabetes mellitus with hyperglycemia[ICD10: E11.65] Diagnosis: Muscle weakness (generalized)[ICD10: M62.81] Diagnosis: Disorientation, unspecified[ICD10: R41.0] Marcela Ha MD, [facility] CPT-4: 94439 02/05/2017 ([id number]) Patient admitted to the hospital from clinic (NO CHARGE) Diagnosis: Type 2 diabetes mellitus with hyperglycemia[ICD10: E11.65] Diagnosis: Disorientation, unspecified[ICD10: R41.0] Diagnosis: Muscle weakness (generalized)[ICD10: M62.81] Marcela Ha MD, [facility] CPT-4: 80786Z 01/29/2017 ([id number]) Miscellaneous no charge Diagnosis: Cellulitis of right lower limb[ICD10: L03.115] Marcela Ha MD [facility] CPT-4: 77621 10/13/2016 ([id number]) Miscellaneous no charge Diagnosis: Type 2 diabetes mellitus with foot ulcer[ICD10: E11.621] Diagnosis: Pain in right foot[ICD10: M79.671] Marcela Ha MD [facility] CPT-4: 01335 10/09/2016 06801 EST. PATIENT, LEVEL II Diagnosis: Cellulitis of right lower limb[ICD10: L03.115] Marcela Ha MD [facility] CPT-4: 33944 10/06/2016 ([id number]) 14882 EST. PATIENT, LEVEL IV Diagnosis: Low back pain[ICD10: M54.5] Diagnosis: Other deformities of toe(s) (acquired), left foot[ICD10: M20.5X2] Diagnosis: Type 2 diabetes mellitus with foot ulcer[ICD10: E11.621] Marcela Ha MD [facility] CPT-4: 30189 07/18/2016 ([id number]) 03402 EST. PATIENT, LEVEL III Diagnosis: Type 2 diabetes mellitus with hyperglycemia[ICD10: E11.65] Marcela Ha MD, [facility] CPT-4: 71645 06/22/2016 ([id number]) 31108 EST. PATIENT, LEVEL IV Diagnosis: Type 2 diabetes mellitus with hyperglycemia[ICD10: E11.65] Diagnosis: Mixed hyperlipidemia[ICD10: E78.2] Diagnosis: Other hemoglobinopathies[ICD10: D58.2] Marcela Ha MD [facility] CPT-4: 23927 05/23/2016 ([id number]) 11859 EST. PATIENT, LEVEL IV Diagnosis: Type 2 diabetes mellitus with other specified complication[ICD10: E11.69] Diagnosis: Dehydration[ICD10: E86.0] [facility] CPT-4: 30688 05/15/2016 ([id number]) OFFICE VISIT, NEW - LEVEL 3 Diagnosis: Allergic contact dermatitis due to plants, except food[ICD10: L23.7] [facility] CPT-4: 44067 01/20/2016 Plan of Care Planned Activity Notes Codes Status Date Visit Plan: Epigastric pain -start protonix daily- monitor symptoms Chest pain -work up negative done last week with Madeline-recommend appt with Dr Brennan Joint pain-check inflammation makers DM-check Hgb a1c 12/31/2018 Patient Education: Patient Medication Summary Completed 12/31/2018 Visit Plan: chest pain - EKG and cardiac enzymes OK - discussed with Dr. Ha - will treat for pneumonia - pt is to notify clinic if symptoms do not improve, if they worsen, or with any changes questions, or concerns. 12/26/2018 Appointment: [phone] [facility] (30 min) Complex 12/26/2018 Patient Education: Patient Medication Summary Completed 12/26/2018 Referral: Andrew Cross Patient informed. Referral info faxed. Completed Visit Plan: cough - improved - continue with inhalers - continue with symbicort - rx for proair for PRN use when pt is feelign short of breath with activity. 11/18/2018 Appointment: [facility]el: [phone] [facility] (15 min) Moderate 11/18/2018 Patient Education: Patient Medication Summary Completed 11/18/2018 Visit Plan: Cough-pneumonia- patient continues to have symptoms after treatment with levaquin and most recently zithromax/cefdinir - chest xray was negative -will obtain follow up sputum culture and schedule CT chest for further evaluation -rx for symbicort provided and instructed on use - will also refer to Dr Cross for evaluation -patient may need a bronchoscopy. Patient verbalized understanding of plan. 11/12/2018 Visit Plan: Cough-pneumonia- patient continues to have symptoms after treatment with levaquin and most recently zithromax/cefdinir - chest xray was negative -will obtain follow up sputum culture and schedule CT chest for further evaluation -rx for symbicort provided and instructed on use - will also refer to Dr Cross for evaluation -patient may need a bronchoscopy. Patient verbalized understanding of plan. 11/12/2018 Appointment: Marcela Oshea WPtel: [phone] (30 min) Complex 11/12/2018 Patient Education: Patient Medication Summary Completed 11/12/2018 Patient Education: Symbicort - 18-64 - eCopay Completed 11/12/2018 Care Plan: Referral Order SNOMED-CT : 416186303 Pending 11/12/2018 Referral: Niko Mantilla Referral Completed 11/04/2018 Visit Plan: Pneumonia, cough - recent diagnosis of Moraxella Cattharalis - with sensitivity to levaquin - will give 2 wks of levaquin since he had improvement but no full resolution of symptoms. 10/30/2018 Appointment: Melida Ha WPtel: [facility]9 [facility] 30 min appointments only in this slot 10/30/2018 Patient Education: Patient Medication Summary Completed 10/30/2018 Visit Plan: Right hand-joint pain and swelling -negative for gout -treated for cellulitis right 2nd mcp joint -now having difficulty with long finger "locking" -Dr Ha in to evaluate patient and tape index and long finger in place-refer to Dr Mantilla for evaluation 10/24/2018 Appointment: Marcela Oshea WPtel: [phone] (30 min) Complex 10/24/2018 Patient Education: Patient Medication Summary Completed 10/24/2018 Care Plan: Referral Order SNOMED-CT : 880291242 Pending 10/24/2018 Visit Plan: Hypotension - discussed with Dr. Brennan - he is in agreement to decrease the valsartan to 1/2 dose daily. Continue with coreg at current dosing - he is to keep track of his blood pressure and heart rate and bring it to the office in 2 weeks to his next appt. Diabetes Mellitus - controlled - per recent [...] readings are starting to become less controlled. 10/23/2018 Appointment: Melida Ha WPtel: [phone] [facility] (15 min) Moderate 10/23/2018 Patient Education: Patient Medication Summary Completed 10/23/2018 Visit Plan: Cellulitis -right hand- stop keflex- start doxycycline as directed, return to clinic as previously directed, call for acute change in symptoms, worsening redness, warmth, discharge. Right hand pain- toradol injection today in the office Diabetic foot ulcer- patient to see specialist this afternoon 10/21/2018 Visit Plan: Cellulitis -right hand- stop keflex- start doxycycline as directed, return to clinic as previously directed, call for acute change in symptoms, worsening redness, warmth, discharge. Right hand pain- toradol injection today in the office Diabetic foot ulcer- patient to see specialist this afternoon ADDENDUM: Doctor's eval of the patient - I, Dr. Ha, personally evaluated the patient with the nurse practitioner. I have reviewed the patient's chart, I have reviewed the patient's past medical history , problem list, medication list, and personal history. I agree with the documentation by the nurse practitioner in the HPI, physical exam, and the assessment and plan. 10/21/2018 Visit Plan: Cellulitis -right hand- stop keflex- start doxycycline as directed, return to clinic as previously directed, call for acute change in symptoms, worsening redness, warmth, discharge. Right hand pain- toradol injection today in the office Diabetic foot ulcer- patient to see specialist this afternoon ADDENDUM: Doctor's eval of the patient - I, Dr. Ha, personally evaluated the patient with the nurse practitioner. I have reviewed the patient's chart, I have reviewed the patient's past medical history , problem list, medication list, and personal history. I agree with the documentation by the nurse practitioner in the HPI, physical exam, and the assessment and plan. 10/21/2018 Appointment: Marcela Osheatel: [facility]6 [phone] (30 min) Complex 10/21/2018 Patient Education: Patient Medication Summary Completed 10/21/2018 Visit Plan: Mild ecchymosis with faint erythema - pt is to continue his levaquin that was previously prescribed - The patient was instructed in appropriate wound care. The patient was instructed to use the antibiotic as per RX. The patient is to call for any change in symptoms, increase in size of the lesion, increase in pain, worsening redness, warmth, discharge. 10/17/2018 Appointment: Madeline Kennedy WPtel: [facility] [address] (15 min) Moderate 10/17/2018 Patient Education: Patient Medication Summary Completed [...] acutely worsen. 10/14/2018 Appointment: Marcela Oshea WPtel: [facility]8 [phone] (15 min) Moderate 10/14/2018 Patient Education: Patient Medication Summary Completed 10/14/2018 Care Plan: CHEST X-RAY 2VW FRONTAL&LATL LOINC : 27461-2 Pending 10/14/2018 Visit Plan: URI - Pt [...] allergy spray. 09/30/2018 Appointment: Madeline Kennedy WPtel: [address] [place], [place] [phone] (15 min) Moderate 09/30/2018 Patient Education: Patient [...] Hgb A1C 09/09/2018 Appointment: Marcela Oshea WPtel: [address] [place], [place] [phone] (15 min) Moderate 09/09/2018 Patient Education: Patient Medication Summary Completed 09/09/2018 Patient Education: Patient Medication Summary Completed 09/06/2018 Patient Education: Cholesterol Management Completed 09/06/2018 Care Plan: Comp Metabolic Pending 09/06/2018 Care Plan: Cbc With Differential Pending 09/06/2018 Care Plan: %Hba1C LOINC : 38663-6 Pending 09/06/2018 Care Plan: Tsh Pending 09/06/2018 Care Plan: Lipid Pending 09/06/2018 Appointment: Marcela Oshea WPtel: [address] [place], [place] [phone] (15 min) Moderate 08/26/2018 Appointment: Marcela Oshea WPtel: [address] [place], [place] [phone] (15 min) Moderate 08/23/2018 Visit Plan: Hypertension [...] clinic. 07/22/2018 Appointment: Melida Ha WPtel: [phone] [facility] (15 min) Moderate 07/22/2018 Patient Education: Patient [...] insomnia. 07/16/2018 Appointment: [facility]Ptel[phone] (30 min) Complex 07/16/2018 Patient Education: Patient Medication Summary Completed 07/16/2018 Visit Plan: cough - improved - notify clinic if symptoms do not completely resolve, or with any questions or concerns. 07/01/2018 Appointment: Madeline Kennedy [facility]Ptel[facility] [phone] [facility] (15 min) Moderate 07/01/2018 Patient Education: [...] allergy spray. 06/28/2018 Appointment: Madeline Kennedy WPtel: [facility] (15 min) Moderate 06/28/2018 Patient Education: Patient Medication Summary Completed 06/28/2018 Patient Education: Patient Medication Summary Completed 06/21/2018 Care Plan: Annabel RICKS [place] Pending 06/21/2018 Visit Plan: Diabetes Mellitus - [...] pressure readings at home. 06/18/2018 Appointment: Melida aH WPtel: [facility] (15 min) Moderate 06/18/2018 Patient Education: Patient [...] improves. 06/04/2018 Appointment: Melida Ha WPtel: [phone] [facility] [place] (15 min) Moderate 06/04/2018 Patient Education: [...] allow for greater blood glucose control. Joint sdwn-giqlxift-rmthyxy- symptoms have improved -stop meloxicam due to upset stomach-call if symptoms return 05/13/2018 Appointment: Marcela Oshea WPtel: [phone] [phone] [place] (30 min) Complex 05/13/2018 Patient Education: Patient Medication Summary Completed 05/13/2018 Visit Plan: Bilateral hip jjfp-xggqtowt-mksonit IM injection administered today for c/o continued myalgia/arthralgia. Patient to start taking Meloxicam 15mg PO daily. Advised to return to clinic if symptoms do not improve. 05/02/2018 Appointment: Marcela Oshea WPtel: [phone] [phone] (30 min) Complex 05/02/2018 Patient [...] readings at home. Diabetes Mellitus -check labs Lufrlnua-lpyophr-spda bite-rx for doxycycline-follow up in 2 weeks 04/29/2018 Appointment: Marcela Oshea WPtel: [phone] [phone] [place] (15 min) Moderate 04/29/2018 Patient Education: Patient Medication Summary Completed 04/29/2018 Appointment: Melida Ha WPtel: [phone] [facility] (15 min) Moderate 04/15/2018 Appointment: Marcela Oshea WPtel: [phone] [phone] [place] (30 min) Complex 03/21/2018 Visit [...] on cymbalta 03/13/2018 Appointment: Melida Ha WPtel: [phone] [facility] [place] (30 min) Complex 03/13/2018 Patient Education: Patient Medication Summary Completed 03/13/2018 Visit Plan: DM-continue same medications-monitor blood sugars routinely as directed -rx for new glucometer and test strips provided Bipolar-currently depressed-patient start on vraylar-follow up in 2 weeks, sooner if needed. Patient and verbalied understanding of plan. Hypotension- stay off losartan 03/07/2018 Appointment: Marcela Oshea WPtel: [phone] [phone] (30 min) Complex 03/07/2018 Patient Education: Patient Medication Summary Completed 03/07/2018 Appointment: Melida Ha WPtel: [phone] [facility] (15 min) Moderate 03/04/2018 Visit [...] patient. 02/28/2018 Appointment: Marcela Oshea WPtel: [phone] [phone] (30 min) Complex 02/28/2018 Patient Education: [...] improving. 02/13/2018 Appointment: Madeline Kennedy [facility]Ptel[phone] [facility] (15 min) Moderate 02/13/2018 Patient Education: Patient Medication Summary Completed 02/13/2018 Referral: Sun Glynn Patient informed. Referral info faxed. Completed Visit Plan: DM-weight loss-not checking blood sugars- patient sent for labs today HTN-low dihdb-eerguaf-uhlrr labs Callus of foot and fissue of heel-refer to Dr Glynn for evaluation Esophageal Reflux - the patient has been counseled against excessive intake of caffeine, spicy foods, peppermint , and cinnamon - all of which can exacerbate esophageal reflux. The patient is to take medications as prescribed and call the office if the symptoms are not improving. 01/29/2018 Appointment: Marcela Oshea WPtel: [phone] [place] (30 min) Complex 01/29/2018 Patient Education: Patient Medication Summary Completed 01/29/2018 Care Plan: Comp Metabolic Cancelled 01/29/2018 Care Plan: Cbc With Differential Cancelled 01/29/2018 Care Plan: %Hba1C LOINC : 15983-1 Cancelled 01/29/2018 Care Plan: Referral Order SNOMED-CT : [id number] Cancelled 01/29/2018 Visit Plan: Fatigue, malaise, joint [...] concerns. 08/27/2017 Appointment: Madeline Kennedy [facility]Ptel: [phone] [facility] (15 min) Moderate 08/27/2017 Patient Education: [...] - 08/16/2017 Appointment: Melida Ha WPtel: [phone] [facility] (30 min) Complex 08/16/2017 Patient Education: Patient Medication Summary Completed 08/16/2017 Patient Education: Obesity Completed 08/16/2017 Appointment: Madeline Kennedy [facility]Ptel: [phone] [facility] (30 min) Complex 08/07/2017 Visit Plan: Shingles [...] contagious. 07/26/2017 Appointment: Madeline Kennedy WPtel: [phone] [facility] (15 min) Moderate 07/26/2017 Patient Education: Patient Medication Summary Completed 07/26/2017 Visit Plan: Cellulitis right foot-cultured today in the office-home health to reapply wound vac--appt with wound care on to evaluate for debridement- 07/03/2017 Appointment: Marcela Oshea WPtel: [address] [place], [place] [phone] (30 min) Complex 07/03/2017 Patient Education: Patient Medication Summary Completed 07/03/2017 Visit Plan: Abrasion left arm - Pt was instructed to keep the wound clean, wash with antibacterial soap, use triple antibiotic ointment, call if redness, pustular drainage, or any other acute concerns. 06/29/2017 Appointment: Marcela Oshea WPtel: [address] [place], [place] [phone] (15 min) Moderate 06/29/2017 Patient Education: Patient [...] of plan. 06/18/2017 Appointment: Marcela Oshea WPtel: [address] [place], [place] [phone] (15 min) Moderate 06/18/2017 Patient Education: Patient [...] diet-start prilosec 06/07/2017 Appointment: Marcela Oshea WPtel: [address] [place], [place] [phone] (10 min) Simple 06/07/2017 Patient Education: Patient [...] doxycycline 05/17/2017 Appointment: Marcela Oshea WPtel: [phone] [phone] (30 min) Complex 05/17/2017 Patient [...] if you want blue minesh called into [facility]. 05/04/2017 Appointment: Marcela Oshea WPtel: [phone] (30 min) Complex 05/04/2017 Patient Education: [...] home. Cough-resolved 03/15/2017 Appointment: Marcela Oshea WPtel: [phone] (15 min) Moderate 03/15/2017 Patient Education: Patient Medication Summary Completed 03/15/2017 Appointment: Marcela Oshea WPtel: [facility] [place] [address] (30 min) Complex 03/12/2017 Visit Plan: Feng [...] as discussed 02/16/2017 Appointment: Marcela Oshea WPtel: [facility] [place] [address] (15 min) Moderate 02/16/2017 Patient Education: Patient [...] less controlled. 02/12/2017 Appointment: Marcela Oshea WPtel: [facility] [place] [address] (30 min) Complex 02/12/2017 Patient Education: Patient Medication Summary Completed 02/12/2017 Appointment: Marcela Oshea WPtel: [address] [place], [place] [phone] [place] [address] (30 min) Complex 02/06/2017 Visit Plan: Diabetes [...] will consider 02/05/2017 Appointment: Marcela Oshea WPtel: [phone] [phone] (30 min) Complex 02/05/2017 Patient Education: Patient Medication Summary Completed 02/05/2017 Appointment: Marcela Oshea WPtel: [phone] [phone] [place] (30 min) Complex 01/30/2017 Visit Plan: Acute confusion-uncontrolled diabetes- chronically noncompliant with treatment and stopped his insulin several months ago-r/o stroke vs DKA-Dr Ha in to evaluate patient-plan to admit for further work up and treatment-patient's called and she transported him to the hospital 01/29/2017 Appointment: Marcela Oshea WPtel: [phone] [place] (30 min) Complex 01/29/2017 Patient Education: Patient Medication Summary Completed 01/29/2017 Patient Education: Obesity Completed 01/29/2017 Visit Plan: Right foot pain-MRI shows foreign body-appt with Dr Grewal for evaluation on Sunday. 10/13/2016 Appointment: Marcela Oshea WPtel: [address] [place], [place] [phone] [place] (15 min) Moderate 10/13/2016 Patient Education: Patient Medication Summary Completed 10/13/2016 Appointment: Marcela Oshea WPtel: [phone] [phone] [place] (30 min) Complex 10/12/2016 Visit Plan: Right foot uomt-okjfevph-bdogw washer dropped on foot-xray negative but pain continues to increase-recommend MRI of foot for further evaluation-refer to wound care for lesions on right foot, patient has diabetes and history of osteomyelitis-culture obtained today-continue oral abx- follow up in the office on , sooner if needed 10/09/2016 Visit Plan: Right foot rtuk-zqdzhxki-dcagj washer dropped on foot-xray negative but pain continues to increase-recommend MRI of foot for further evaluation-refer to wound care for lesions on right foot, patient has diabetes and history of osteomyelitis-culture obtained today-continue oral abx- follow up in the office on , sooner if needed 10/09/2016 Visit Plan: Right foot mbzn-ihfnysxe-brjqs washer dropped on foot-xray negative but pain continues to increase-recommend MRI of foot for further evaluation-refer to wound care for lesions on right foot, patient has diabetes and history of osteomyelitis-culture obtained today-continue oral abx- follow up in the office on , sooner if needed 10/09/2016 Appointment: Marcela Oshea WPtel: [address] [place] [address] (30 min) Complex 10/09/2016 Patient Education: Patient Medication Summary Completed 10/09/2016 Visit Plan: Cellulitis - continue with oral antibiotics as previously directed, return to clinic as previously directed, call for acute change in symptoms, worsening redness, warmth, discharge. 10/06/2016 Appointment: Marcela Oshea WPtel: [address] [place] [address] (10 min) Simple 10/06/2016 Patient Education: Patient Medication Summary Completed 10/06/2016 Appointment: Marcela Oshea WPtel: [address] [place], [place] [phone] (30 min) Complex 08/24/2016 Referral: Sun Glynn Referral Completed 07/21/2016 Visit Plan: Low back pain- history of spinal fusion- patient for xray lumbar spine-RX sent to [facility] pharmacy and instructed on use-topical voltaren samples provided and instructed on use. Ok to use tylenol as needed as well. The patient is to call the office if the pain is worsening or does not improve. Pressure ulcer left 4th toe-refer to Dr Glynn for evaluation 07/18/2016 [facility]ment: [facility] [address] [phone] (30 min) Complex 07/18/2016 Patient Education: Patient Medication Summary Completed 07/18/2016 Patient Education: Obesity Completed 07/18/2016 Care Plan: Referral Order SNOMED-CT : [id number] Cancelled 07/18/2016 Visit Plan: Diabetes Mellitus - [...] control. 06/22/2016 [facility]ment: [facility] [phone] [phone] (30 min) Complex 06/22/2016 Patient Education: [...] today 05/23/2016 Appointment: Marcela Oshea WPtel: [phone] [phone] (30 min) Complex 05/23/2016 Patient Education: [...] of plan. 05/15/2016 Appointment: Marcela Oshea WPtel: [address] [place], [place] [phone] (15 min) Moderate 05/15/2016 Patient Education: Patient Medication Summary Completed 05/15/2016 Patient Education: Obesity Completed 05/15/2016 Visit Plan: Poison Jana - pt is to use topical treatments as directed. Pt is cleanse clothing in hot water with soap, and call if symptoms do not improve or if they worsen. 01/20/2016 Patient Education: Patient Medication Summary Completed 01/20/2016 Patient Education: Obesity Completed 01/20/2016 Referral: Niko Mantilla Referral Appointment Requested Referral: Andrew Cross Referral Appointment Requested Referral: Sun Glynn Referral Initiated Referral: Sun [...] in blood pressure readings at home. . Right hand-joint pain and swelling -negative for gout - treated for cellulitis right 2nd mcp joint -now having difficulty with long finger "locking" -Dr Ha in to evaluate patient and tape index and long finger in place-refer to Dr Mantilla for evaluation steroid shot today flonase and mucinex over [...] not improved, or if symptoms acutely worsen. PROTONIX 40MG DAILY CHECK LABS APPT WITH DR BRENNAN . Epigastric pain -start protonix daily- monitor symptoms Chest pain -work up negative done last week with Madeline-recommend appt with Dr Brennan Joint pain-check inflammation makers DM-check Hgb a1c CT Chest sputum culture symbicort 2 puffs twice daily flonase 1 spray each nare twice daily refer to Dr Cross . Cough-pneumonia- patient continues to have symptoms after treatment with levaquin and most recently zithromax/cefdinir -chest xray was negative -will obtain follow up sputum culture and schedule CT chest for further evaluation - rx for symbicort provided and instructed on use -will also refer to Dr Cross for evaluation -patient may need a bronchoscopy. Patient verbalized understanding of plan. START CHECKING BLOOD SUGARS . Diabetes Mellitus [...] readings are starting to become less controlled. Qxarlucxp-bqhglipp-ywgcqkbd to monitor Generalized weakness-refer for PT-patient refuses today but will consider . Bilateral hip xqoi-mxffzwie-erpkafv IM injection administered today for c/o continued [...] for fracture from injury . Right foot ylri-pyzyjaml-hhdpg washer dropped on foot-xray negative but pain [...] for fracture from injury . Right foot yinl-mbbfaxil-kwepz washer dropped on foot-xray negative but pain [...] for fracture from injury . Right foot goyz-ogwbvhsm-qfbny washer dropped on foot-xray negative but pain continues to increase-recommend MRI of foot for further evaluation-refer to wound care for lesions on right foot, patient has diabetes and history of osteomyelitis-culture obtained today-continue oral abx-follow up in the office on , sooner if needed . cough - improved - notify clinic if symptoms do not completely resolve, or with any questions or concerns. . Hypertension - well controlled - [...] check HgbA1c flu shot today - . Pneumonia, cough - recent diagnosis of Moraxella Cattharalis - with sensitivity to levaquin - will give 2 wks of levaquin since he had improvement but no full resolution of symptoms. . Abrasion left arm - Pt was [...] anai edge called into [facility]. REPEAT LABS BEFORE YOUR NEXT APPOINTMENT [...] greater blood glucose control. Tick bite-continue doxycycline breathing treatments 3 times a day x [...] in the nasal steroid allergy spray. . Cellulitis right foot-cultured today in the [...] - stop Vraylar and start on cymbalta . Hypertension - well controlled - continue with current medications, continue with no added salt diet. Pt has been encouraged to exercise daily. The pt has been advised to call the office if there are any acute concerns about change in blood pressure readings at home. Cough-resolved CT Chest sputum culture symbicort 2 puffs twice daily flonase 1 spray each nare twice daily refer to Dr Cross . Cough-pneumonia- patient continues to have symptoms after treatment with levaquin and most recently zithromax/cefdinir -chest xray was negative -will obtain follow up sputum culture and schedule CT chest for further evaluation - rx for symbicort provided and instructed on use -will also refer to Dr Cross for evaluation -patient may need a bronchoscopy. Patient verbalized understanding of plan. STAY OFF LOSARTAN AND CHOLESTEROL MEDICATION FOR NOW . DM- continue same medications-monitor blood sugars routinely as directed -rx for new glucometer and test strips provided Bipolar-currently depressed-patient start on vraylar-follow up in 2 weeks, sooner if needed. Patient and verbalied understanding of plan. Hypotension-stay off losartan . DM-weight loss-not checking blood sugars-patient sent for labs today HTN-low wuzpg-itvsviu-wlzrf labs Callus of foot and fissue of heel-refer to Dr Glynn for evaluation Esophageal Reflux - the patient has been counseled against excessive intake of caffeine, spicy foods, peppermint, and cinnamon - all of which can exacerbate esophageal reflux. The patient is to take medications as prescribed and call the office if the symptoms are not improving. STOP MELOXICAM CONTINUE LYRICA 50 UNITS TOUJEO [...] allow for greater blood glucose control. Joint vqxq-rluvxwei-qtukjnm-symptoms have improved -stop meloxicam due to upset [...] she transported him to the hospital decrease the valsartan to 2 pill daily keep a log of your blood pressure and heart rate, bring it to the office in 2 weeks . Hypotension - discussed with Dr. Brennan - he is in agreement to decrease the valsartan to 1/2 dose daily. Continue with coreg at current dosing - he is to keep track of his blood pressure and heart rate and bring it to the office in 2 weeks to his next appt. Diabetes Mellitus - controlled - per recent [...] readings are starting to become less controlled. will check labs and EKG if it is negative will start you on an antibiotic -. chest pain - EKG and cardiac enzymes OK - discussed with Dr. Ha - will treat for pneumonia - pt is to notify clinic if symptoms do not improve, if they worsen, or with any changes questions, or concerns. decrease novolog to 8 units at meals. [...] Cymbalta. Flu shot given today in clinic. 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 Low back pain- history of spinal fusion-patient for xray lumbar spine-RX sent to [facility]'s pharmacy and instructed on use-topical voltaren samples provided and instructed on use. Ok to use tylenol as needed as well. The patient is to call the office if the pain is worsening or does not improve. Pressure ulcer left 4th toe-refer to Dr Glynn for evaluation STOP LISINOPRIL DUE TO COUGH -START LOSARTAN [...] not resolve-start augmentin if needed as discussed . cough - improved - continue with inhalers - continue with symbicort - rx for proair for PRN use when pt is feelign short of breath with activity. Stop the atorvastatin (lipitor) - start Co [...] if the symptoms are not improving. . Diabetes Mellitus - I have recommended [...] allow for greater blood glucose control. . Insomnia - Pt has been advised [...] any worse. Patient verbalized understanding of plan. DOXYCYCLINE 100MG TWICE DAILY TORADOL INJECTION STOP KEFLEX FINISH THE LEVAQUIN . Cellulitis -right hand- stop keflex- start doxycycline as directed, return to clinic as previously directed, call for acute change in symptoms, worsening redness, warmth, discharge. Right hand pain-toradol injection today in the office Diabetic foot ulcer- patient to see specialist this afternoon DOXYCYCLINE 100MG TWICE DAILY TORADOL INJECTION STOP KEFLEX FINISH THE LEVAQUIN . Cellulitis -right hand- stop keflex- start doxycycline as directed, return to clinic as previously directed, call for acute change in symptoms, worsening redness, warmth, discharge. Right hand pain-toradol injection today in the office Diabetic foot ulcer- patient to see specialist this afternoon ADDENDUM: Doctor's eval of the patient - I, Dr. Ha, personally evaluated the patient with the nurse practitioner. I have reviewed the patient's chart, I have reviewed the patient's past medical history, problem list, medication list, and personal history. I agree with the documentation by the nurse practitioner in the HPI, physical exam, and the assessment and plan. doxycycline 100mg twice daily follow up in 2 weeks, sooner if needed . Hypertension - well controlled - continue with current medications, continue with no added salt diet. Pt has been encouraged to exercise daily. The pt has been advised to call the office if there are any acute concerns about change in blood pressure readings at home. Diabetes Mellitus -check labs Hbwwtacv-atgmlin-zkyk bite-rx for doxycycline-follow up in 2 weeks [...] do not show improvement. DM-check Hgb A1C DOXYCYCLINE 100MG TWICE DAILY TORADOL INJECTION STOP KEFLEX FINISH THE LEVAQUIN . Cellulitis -right hand- stop keflex- start doxycycline as directed, return to clinic as previously directed, call for acute change in symptoms, worsening redness, warmth, discharge. Right hand pain-toradol injection today in the office Diabetic foot ulcer- patient to see specialist this afternoon ADDENDUM: Doctor's eval of the patient - I, Dr. Ha, personally evaluated the patient with the nurse practitioner. I have reviewed the patient's chart, I have reviewed the patient's past medical history, problem list, medication list, and personal history. I agree with the documentation by the nurse practitioner in the HPI, physical exam, and the assessment and plan.
--- OUTSIDE RECORDS SUMMARY | 2019-01-01 14:07 | XMS REPORT | CCD ---
Author Author Madeline Kennedy MD, [facility] Address [address] [place] [address] Phone Care Team Providers Care [employer] Manager Name Role Phone PP Unavailable CCM Unavailable Summary Purpose Interface Exchange Insurance Providers Payer name Policy type / Coverage type Covered republican ID Effective Begin Date Effective End Date [place] [employer] Commercial [employer] [id number] 2018 Unknown Family history Father Diagnosis Age At Onset Hyperlipidemia Unknown Heart Attack Unknown Mother Diagnosis Age At Onset Hypertension Unknown Social History Social History Element Codes Description Effective Dates Marital status Unknown Mignon 01/20/2016 Number of children Unknown 4 01/20/2016 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/[address]: 121174585 Never smoker 01/20/[address]: 911017151 Never drinks alcohol 01/20/2016 Allergies, Adverse Reactions, [...] Instructions Protonix 40 mg tablet,delayed release RxNorm: 472031 1 Tablet(s) PO daily 12/31/2018 01/29/2019 Active Tresiba FlexTouch U-200 insulin 200 unit/mL (3 mL) subcutaneous pen RxNorm: 4176487 50 Unit(s) SQ daily 12/31/2018 01/29/2019 Active please give him 30 day supply Augmentin 500 mg-125 mg tablet RxNorm: 036627 1 Tablet(s) PO TID 12/26/2018 01/04/2019 Active Augmentin 500 mg-125 mg tablet RxNorm: 306301 1 Tablet(s) PO TID 12/26/2018 12/25/2018 Inactive ProAir HFA 90 mcg/actuation aerosol inhaler RxNorm: 2918299 2 Puff(s) INH QID as needed 11/18/2018 No Stop Date Active Lyrica 50 mg capsule RxNorm: 531369 Capsule(s) PO daily 201802/08/2019 Active Cymbalta 30 mg capsule,delayed release RxNorm: 837251 1 Capsule(s) PO QAM 11/13/2018 06/10/2019 Active Lyrica 50 mg capsule RxNorm: 822360 Capsule(s) PO daily 201811/12/2018 Inactive Symbicort 160 mcg-4.5 mcg/actuation HFA aerosol inhaler RxNorm: 1944236 2 Puff(s) INH BID 11/12/2018 12/11/2018 Inactive albuterol sulfate 2.5 mg/3 mL (0.083 %) solution for nebulization RxNorm: 420892 3 Milliliter(s) INH UD 11/07/2018 No Stop Date Active azithromycin 500 mg tablet RxNorm: 752057 500mg on day 1 then 250 mg daily x 4 more day Tablet(s) PO 11/07/20182018 Inactive 500mg on day 1 and then 250mg daily 2-4 azithromycin 500 mg tablet RxNorm: 436665 500mg on day 1 then 250 mg daily x 4 more day Tablet(s) PO 11/07/20182018 Inactive 500mg on day 1 and then 250mg daily 2-4 cefdinir 300 mg capsule RxNorm: 718737 1 Capsule(s) PO BID 01/201911/06/2018 Inactive cefdinir 300 mg capsule RxNorm: 776359 1 Capsule(s) PO BID 01/201911/13/2018 Inactive Levaquin 500 mg tablet RxNorm: 620366 1 Tablet(s) PO daily TAKE ONE TABLET BY MOUTH DAILY UNTIL GONE 10/31/20182018 Inactive Levaquin 500 mg tablet RxNorm: 755630 1 Tablet(s) PO daily 11/12/2018 Inactive valsartan 80 mg tablet RxNorm: 377267 1/2 Tablet(s) PO daily 04/20/2019 Active doxycycline hyclate 100 mg tablet RxNorm: 0734210 1 Tablet(s) PO BID 10/21/2018 10/27/2018 Inactive ketorolac 60 mg/2 mL intramuscular solution RxNorm: 7547623 Milliliter(s) IM 10/21/2018 10/21/2018 Inactive Levaquin 500 mg tablet RxNorm: 336084 1 Tablet(s) PO daily 10/31/2018 Inactive Tessalon Perles 100 mg capsule RxNorm: 367237 1-2 Capsule(s) PO TID PRN 10/14/2018 No Stop Date Active albuterol sulfate 2.5 mg/3 mL (0.083 %) solution for nebulization RxNorm: 430025 3 Milliliter(s) INH UD 10/14/201812/2018 Inactive Levaquin 500 mg tablet RxNorm: 861848 1 Tablet(s) PO daily 08/201810/16/2018 Inactive Coreg 6.25 mg tablet RxNorm: 764850 TAKE ONE TABLET BY MOUTH TWICE A DAY 09/30/2018 03/28/2019 Active albuterol sulfate 2.5 mg/3 mL (0.083 %) solution for nebulization RxNorm: 642979 3 Milliliter(s) INH UD 09/30/201807/2018 Inactive Kenalog 40 mg/mL suspension for injection RxNorm: 3074659 1.5 Milliliter(s) Inj 09/30/2018 09/30/2018 Inactive Keflex 500 mg capsule RxNorm: 705158 1 Capsule(s) PO TID 201710/03/2018 Inactive prednisone 20 mg tablet RxNorm: 737014 2 Tablet(s) PO daily 09/29/2018 Inactive Kenalog 40 mg/mL suspension for injection RxNorm: 0018960 Milliliter(s) Inj 09/11/2018 09/11/2018 Inactive Zyrtec 10 mg tablet RxNorm: 5478926 1 Tablet(s) PO daily 09/0910/08/2018 Inactive Keflex 500 mg capsule RxNorm: 688873 1 Capsule(s) PO TID 201709/15/2018 Inactive Tresiba FlexTouch U-200 insulin 200 unit/mL (3 mL) subcutaneous pen RxNorm: 6036346 50 Unit(s) SQ daily 08/30/2018 08/29/2018 Inactive please give him 30 day supply Tresiba FlexTouch U-200 insulin 200 unit/mL (3 mL) subcutaneous pen RxNorm: 5011726 50 Unit(s) SQ daily 08/30/2018 09/28/2018 Inactive please give him 30 day supply Novolog Flexpen U-100 Insulin aspart 100 unit/mL subcutaneous RxNorm: 0235620 8 Unit(s) SQ AC 08/13/2018 No Stop Date Active Novolog Flexpen U-100 Insulin aspart 100 unit/mL subcutaneous RxNorm: 5482023 8 Unit(s) SQ AC 07/22/20182017 Inactive this is an update on his medication Novolog Flexpen U-100 Insulin aspart 100 unit/mL subcutaneous RxNorm: 7277035 12 Unit(s) SQ AC 07/05/20182017 Inactive this is an update on his medication Toujeo SoloStar U-300 Insulin 300 unit/mL (1.5 mL) subcutaneous pen RxNorm: 7859635 INJECT 50 UNITS UNDER THE SKIN DAILY 07/01/2018 08/29/2018 Inactive Mucinex 600 mg tablet, extended release RxNorm: 746002 1 Tablet(s) PO BID 06/28/2018 07/04/2018 Inactive Zofran 4 mg tablet RxNorm: 223498 1 Tablet(s) PO TID as needed nausea 06/28/2018 07/02/2018 Inactive Kenalog 40 mg/mL suspension for injection RxNorm: 1757987 Milliliter(s) Inj 06/28/2018 06/28/2018 Inactive Flonase Allergy Relief 50 mcg/actuation nasal spray, suspension RxNorm: 5658333 1 [place] NASAL BID 06/28/20182017 Inactive Lyrica 50 mg capsule RxNorm: 865739 Capsule(s) PO daily 201707/06/2018 Inactive Novolog Flexpen U-100 Insulin aspart 100 unit/mL subcutaneous RxNorm: 5275090 10 Unit(s) SQ AC 06/18/20182017 Inactive this is an update on his medication Lasix 20 mg tablet RxNorm: 914947 1 Tablet(s) PO BIW 201707/02/2018 Inactive atorvastatin 80 mg tablet RxNorm: 387622 1 Tablet(s) PO QHS 04/201812/06/2018 Inactive clonazepam 1 mg tablet RxNorm: 083284 2 Tablet(s) PO HS 201706/04/2019 Active clonazepam 1 mg tablet RxNorm: 803377 2 Tablet(s) PO HS as needed 06/10/2018 06/09/2018 Inactive Lyrica 50 mg capsule RxNorm: 218856 Capsule(s) PO daily 201707/08/2018 Inactive Lasix 20 mg tablet RxNorm: 1 Tablet(s) PO TIW 201706/11/2018 Inactive Toujeo SoloStar U-300 Insulin 300 unit/mL (1.5 mL) subcutaneous pen RxNorm: 7952337 50 Unit(s) SQ daily 05/07/2018 06/30/2018 Inactive meloxicam 15 mg tablet RxNorm: 821698 15 Milligram(s) PO daily 05/02/2018 05/12/2018 Inactive ketorolac 30 mg/mL injection solution RxNorm: 284527 2 Milliliter(s) Inj 05/02/2018 05/02/2018 Inactive Toujeo SoloStar U-300 Insulin 300 unit/mL (1.5 mL) subcutaneous pen RxNorm: 8514211 45 Unit(s) daily 04/29/2018 Inactive clonazepam 1 mg tablet RxNorm: 863739 1 Tablet(s) PO Q8 as needed 04/29/2018 06/09/2018 Inactive doxycycline hyclate 100 mg tablet RxNorm: 2156116 1 Tablet(s) PO BID 04/29/2018 05/12/2018 Inactive Cymbalta 30 mg capsule,delayed release RxNorm: 731366 1 Capsule(s) PO QAM 03/13/2018 10/08/2018 Inactive Lexapro 10 mg tablet RxNorm: 012693 1 Tablet(s) PO QPM 201703/03/2018 Inactive Toujeo SoloStar U-300 Insulin 300 unit/mL (1.5 mL) subcutaneous pen RxNorm: 4754079 20 Unit(s) daily 02/28/2018 Inactive Protonix 40 mg tablet,delayed release RxNorm: 400212 1 Tablet(s) PO daily 01/29/2018 06/09/2018 Inactive clonazepam 1 mg tablet RxNorm: 916000 1 Tablet(s) PO Q8 as needed 12/12/2017 03/10/2018 Inactive Tamiflu 75 mg capsule RxNorm: 641092 1 Capsule(s) PO BID 201712/03/2017 Inactive doxycycline hyclate 100 mg capsule RxNorm: 6391947 1 Capsule(s) PO BID 09/07/2017 09/20/2017 Inactive doxycycline hyclate 100 mg capsule RxNorm: 6610861 1 Capsule(s) PO BID 08/27/2017 09/06/2017 Inactive prednisone 20 mg tablet RxNorm: 541095 2 Tablet(s) PO daily 08/31/2017 Inactive clopidogrel 75 mg tablet RxNorm: 236687 1 Tablet(s) PO daily 06/09/2018 Inactive atorvastatin 40 mg tablet RxNorm: 189259 1 Tablet(s) PO QHS 02/27/2018 Inactive losartan 25 mg tablet RxNorm: 221929 TAKE ONE TABLET BY MOUTH DAILY 08/22/2017 06/09/2018 Inactive Toujeo SoloStar 300 unit/mL (1.5 mL) subcutaneous insulin pen RxNorm: 7302449 45 Unit(s) daily 08/17/2017 08/20/2017 Inactive mupirocin 2 % topical ointment RxNorm: 768200 1 Application TOP TID to the lesions on chest 08/16/2017 08/25/2017 Inactive Toujeo SoloStar 300 unit/mL (1.5 mL) subcutaneous insulin pen RxNorm: 8357192 40 Unit(s) daily 08/16/2017 08/16/2017 Inactive valacyclovir 1 gram tablet RxNorm: 590236 1 Tablet(s) PO TID 08/01/2017 Inactive clonazepam 1 mg tablet RxNorm: 963671 1 Tablet(s) PO Q8 as needed 07/03/2017 09/30/2017 Inactive Levaquin 500 mg tablet RxNorm: 042132 1 Tablet(s) PO daily 06/25/2017 Inactive Levaquin 500 mg tablet RxNorm: 173243 1 Tablet(s) PO daily 06/21/2017 Inactive losartan 25 mg tablet RxNorm: 752989 1 Tablet(s) PO daily 201608/16/2017 Inactive nystatin 100,000 unit/mL oral suspension RxNorm: 150921 5 Milliliter(s) PO QID Swish et swallow 06/18/2017 06/17/2017 Inactive nystatin 100,000 unit/mL oral suspension RxNorm: 630043 5 Milliliter(s) PO QID Swish et swallow 06/18/2017 06/27/2017 Inactive Cipro 500 mg tablet RxNorm: 795215 1 Tablet(s) PO BID 201606/18/2017 Inactive Cipro 500 mg tablet RxNorm: 097251 1 Tablet(s) PO BID 201606/11/2017 Inactive Toujeo SoloStar 300 unit/mL (1.5 mL) subcutaneous insulin pen RxNorm: 8213222 INJECT 10 UNITS UNDER THE SKIN DAILY 06/12/2017 08/15/2017 Inactive Keflex 500 mg capsule RxNorm: 525733 1 Capsule(s) PO TID 201606/13/2017 Inactive doxycycline hyclate 100 mg capsule RxNorm: 2394163 1 Capsule(s) PO BID 05/17/2017 05/21/2017 Inactive doxycycline hyclate 100 mg capsule RxNorm: 6480168 1 Capsule(s) PO BID 05/11/2017 05/16/2017 Inactive losartan 25 mg tablet RxNorm: 805849 1 Tablet(s) PO daily 201606/17/2017 Inactive atorvastatin 40 mg tablet RxNorm: 028637 1 Tablet(s) PO daily 03/01/2017 08/23/2017 Inactive clopidogrel 75 mg tablet RxNorm: 245468 1 Tablet(s) PO daily 08/23/2017 Inactive Flonase Allergy Relief 50 mcg/actuation nasal spray, suspension RxNorm: 6323181 2 [place] NASAL daily 02/16/20172016 Inactive Augmentin 875 mg-125 mg tablet RxNorm: 992694 1 Tablet(s) PO BID 02/16/2017 02/22/2017 Inactive GET PROBIOTIC TO TAKE WHILE ON ABX Tamiflu 75 mg capsule RxNorm: 476747 1 Capsule(s) PO BID 201602/20/2017 Inactive ceftriaxone 500 mg solution for injection RxNorm: 9845109 1 Milliliter(s) Inj 02/16/2017 02/16/2017 Inactive Kenalog 40 mg/mL suspension for injection RxNorm: 1426549 1 Milliliter(s) Inj 02/16/2017 02/16/2017 Inactive Toujeo SoloStar 300 unit/mL (1.5 mL) subcutaneous insulin pen RxNorm: 1726509 25 Unit(s) SQ QAM 02/12/2017 06/10/2017 Inactive Toujeo SoloStar 300 unit/mL (1.5 mL) subcutaneous insulin pen RxNorm: 0050018 10 Unit(s) SQ QAM 02/05/2017 02/11/2017 Inactive lisinopril 10 mg tablet RxNorm: 741082 1 Tablet(s) PO daily 02/28/2017 Inactive atorvastatin 40 mg tablet RxNorm: 674668 1 Tablet(s) PO daily 02/01/2017 02/28/2017 Inactive doxycycline hyclate 100 mg capsule RxNorm: 2323014 1 Capsule(s) PO BID 02/01/2017 02/10/2017 Inactive clonazepam 1 mg tablet RxNorm: 077543 1 Tablet(s) PO Q8 as needed 10/09/2016 01/05/2017 Inactive ceftriaxone 1 gram solution for injection RxNorm: 2685745 Inj 10/06/2016 10/06/2016 Inactive cyclobenzaprine 10 mg tablet RxNorm: 860975 1/2-1 Tablet(s) PO TID PRN 07/18/2016 01/28/2017 Inactive clonazepam 1 mg tablet RxNorm: 018799 1 Tablet(s) PO Q8 as needed 05/31/2016 05/29/2016 Inactive clonazepam 1 mg tablet RxNorm: 751044 1 Tablet(s) PO Q8 as needed 05/31/2016 08/28/2016 Inactive Toujeo SoloStar 300 unit/mL (1.5 mL) subcutaneous insulin pen RxNorm: 4088657 10 Unit(s) SQ daily 05/23/2016 01/28/2017 Inactive Crestor 10 mg tablet RxNorm: 876008 1 Tablet(s) PO QHS 201501/28/2017 Inactive Crestor 10 mg tablet RxNorm: 726182 1 Tablet(s) PO QHS 201505/18/2016 Inactive clonazepam 1 mg tablet RxNorm: 713853 1 Tablet(s) PO Q8 as needed 04/25/2016 05/30/2016 Inactive prednisone 20 mg tablet RxNorm: 678955 3 Tablet(s) PO daily 06/201602/10/2016 Inactive prednisone 20 mg tablet RxNorm: 646973 3 Tablet(s) PO daily 06/201605/14/2016 Inactive Kenalog 40 mg/mL suspension for injection RxNorm: 2536318 Milliliter(s) Inj 01/20/2016 01/20/2016 Inactive aspirin 81 mg tablet,delayed release RxNorm: 321933 1 Tablet(s) PO daily No Start Date Active Brilinta 90 mg tablet RxNorm: 7819362 1 Tablet(s) PO BID No Start Date Active acetaminophen 500 mg tablet RxNorm: 816486 1-2 Tablet(s) PO as needed No Start Date Active clopidogrel 75 mg tablet RxNorm: 399872 1 Tablet(s) PO daily No Start Date 02/28/2017 Inactive Novolog Flexpen U-100 Insulin aspart 100 unit/mL subcutaneous RxNorm: 1401203 5 units with breakfast lunch and 10 supper Unit(s) SQ No Start Date 06/17/2018 Inactive clonazepam 1 mg tablet RxNorm: 810676 1 Tablet(s) PO QHS No Start Date 04/24/2016 Inactive Coreg 6.25 mg tablet RxNorm: 150716 1 Tablet(s) PO BID No Start Date 09/29/2018 Inactive acyclovir 400 mg tablet RxNorm: 115629 2 Tablet(s) PO 5x daily No Start Date 02/28/2017 Inactive Lyrica 50 mg capsule RxNorm: 435730 Capsule(s) PO BID No Start Date 06/09/2018 Inactive Vraylar 3 mg capsule RxNorm: 4112946 1 Capsule(s) PO daily No Start Date 03/12/2018 Inactive valsartan 80 mg tablet RxNorm: 707855 1 Tablet(s) PO daily No Start Date 10/22/2018 Inactive Medication Administered Medication Codes Instructions Start Date Status ketorolac 60 mg/2 mL intramuscular solution RxNorm: 6157817 Milliliter 10/21/2018 No longer Active Kenalog 40 mg/mL suspension for injection RxNorm: 4851565 1.5Milliliter 09/30/2018 No longer Active Kenalog 40 mg/mL suspension for injection RxNorm: 6332509 Milliliter 09/11/2018 No longer Active Kenalog 40 mg/mL suspension for injection RxNorm: 3866426 Milliliter 06/28/2018 No longer Active ketorolac 30 mg/mL injection solution RxNorm: 902193 2Milliliter 05/02/2018 No longer Active ceftriaxone 500 mg solution for injection RxNorm: 3709867 1Milliliter 02/16/2017 No longer Active Kenalog 40 mg/mL suspension for injection RxNorm: 1477646 1Milliliter 02/16/2017 No longer Active ceftriaxone 1 gram solution for injection RxNorm: 9294252 10/06/2016 No longer Active Kenalog 40 mg/mL suspension for injection RxNorm: 9940879 Milliliter 01/20/2016 No longer Active Immunizations Vaccine [...] lower limb ICD-10: L03.115 ICD-9: 682.6 10/17/2018 Acute bronchitis, unspecified ICD-10: J20.9 ICD-9: 466.0 10/14/2018 Acute laryngopharyngitis ICD-10: J06.0 ICD-9: 465.0 09/30/2018 Acute recurrent maxillary sinusitis ICD-10: J01.01 ICD-9: 461.0 09/11/2018 Mixed hyperlipidemia ICD-10: E78.2 ICD-9: 272.2 09/06/2018 Bipolar disorder, current episode depressed, moderate [...] ICD-10: R53.81 ICD-9: 780.79 02/13/2018 Pain in left shoulder ICD-10: M25.512 ICD-9: [...] Nasal congestion ICD-10: R09.81 ICD-9: 478.19 02/16/2017 Disorientation, unspecified ICD-10: R41.0 ICD-9: 293.0 [...] Item Item Code Result Date Culture Sputum 058541 LOWER RESPIRATORY TRACT CULTURE SEE NOTES 11/14/2018 Culture Sputum 412922 LOWER RESPIRATORY TRACT CULTURE SEE NOTES 10/16/2018 LIPID GRP [id number] CHOLESTEROL TNP:Duplicate Order 09/10/2018 LIPID GRP 4334043 Triglyceride TNP:Duplicate Order 2017 LIPID GRP 1462400 HDL CHOLESTEROL TNP:Duplicate Order 2017 LIPID GRP 5270615 Chol/HDL Ratio TNP:Duplicate Order 2017 LIPID GRP 3342872 LDL Cholesterol TNP:Duplicate Order 2017 A1C HPLC 4241441 Hgb A1c 78652-8 TNP:Duplicate Order 2017 C Diff An [id number] GDH TNP:Lab Request 06/22/2018 C Diff An [id number] Toxin A/B TNP:Lab Request 06/22/2018 C Diff An [id number] C Diff Analyzer TNP:Lab Request 2017 C Diff An [id number] IC OK? TNP:Lab Request 06/22/2018 CBC 9821901 WBC 6.4 10e9/L 05/02/2018 CBC 1990797 RBC 5.60 10e12/L 05/02/2018 CBC 4118769 HEMOGLOBIN 17.0 g/dL 05/02/2018 CBC 4876820 HEMATOCRIT 48.0 % 05/02/2018 CBC 8460801 MCV 85.7 fL 05/02/2018 CBC 2055843 MCH 30.4 pg 05/02/2018 CBC 2779639 MCHC 35.4 g/dL 05/02/2018 CBC 9876004 PLATELET COUNT 166 10e9/L 05/02/2018 CBC 8243365 Mean Plt Volume 11.6 fL 05/02/2018 CBC 6092362 Neut Auto 48.6 % 05/02/2018 CBC 3494177 Lymph Auto 41.7 % 05/02/2018 CBC 7456782 [place] Auto 8.1 % 05/02/2018 CBC 6788234 RDW 13.1 % 05/02/2018 CBC 6691321 Eos Auto 1.1 % 05/02/2018 CBC 7720183 Baso Auto 0.5 % 05/02/2018 CBC 4884271 Neutrophil Abs 3.11 10e9/L 05/02/2018 CBC 0617269 Lymphocyte Abs 2.67 10e9/L 05/02/2018 CBC 5065033 Monocyte Abs 0.52 10e9/L 05/02/2018 CBC 9978923 Eosinophil Abs 0.07 10e9/L 05/02/2018 CBC 9629532 RDW-SD 40.0 fL 05/02/2018 CBC 3983200 Basophil Abs 0.03 10e9/L 05/02/2018 CHEM 14 6544767 AST 17 U/L 05/02/2018 CHEM 14 7010349 ALT 17 U/L 05/02/2018 CHEM 14 5104934 BUN 17 mg/dL 05/02/2018 CHEM 14 2781516 ALBUMIN 4.0 g/dL 05/02/2018 CHEM 14 3841530 CHLORIDE 97 mmol/L 05/02/2018 CHEM 14 8439523 Bili Total 0.9 mg/dL 05/02/2018 CHEM 14 5467950 ALK PHOS 67 U/L 05/02/2018 CHEM 14 1975736 SODIUM 135 mmol/L 05/02/2018 CHEM 14 7510735 CREATININE 1.18 mg/dL 05/02/2018 CHEM 14 8164263 CALCIUM 9.4 mg/dL 05/02/2018 CHEM 14 3216134 POTASSIUM 4.4 mmol/L 05/02/2018 CHEM 14 8091238 TOTAL PROTEIN 6.9 g/dL 05/02/2018 CHEM 14 6975159 GLUCOSE 316 mg/dL 05/02/2018 CHEM 14 2102508 Bicarbonate 29 mmol/L 05/02/2018 CHEM 14 0093118 AGAP 9 mmol/L 05/02/2018 MEAN GLUC 4393625 Calc Mean Gluc 283 mg/dL 05/02/2018 A1C HPLC 5827001 Hgb A1c 31279-3 11.5 % 05/02/2018 GFR CALC 8875496 GFR Non Afr Amr >60 mL/min 05/02/2018 GFR CALC 4505793 GFR Afr Amr >60 mL/min 05/02/2018 [facility] Gold [id number] JI Gold Complete 02/28/2018 GFR CALC 6509790 GFR Non Afr Amr >60 mL/min 02/28/2018 GFR CALC 1455390 GFR Afr Amr >60 mL/min 02/28/2018 UA W/CII 9309042 UA Urine Appear Normal 02/28/2018 UA W/CII 4481466 UA Protein 1+ 02/28/2018 UA W/CII 6745091 UA Hemoglobin Negative 02/28/2018 UA W/CII 0022943 UA Glucose 4+ 02/28/2018 UA W/CII 8492661 UA Ketones Trace 02/28/2018 UA W/CII 2547392 UA pH 5.5 02/28/2018 UA W/CII 0384210 U Spec [place] 1.015 02/28/2018 UA W/CII 5066292 UA Bilirubin Negative 02/28/2018 UA W/CII 5587682 UA Nitrite NEG 02/28/2018 UA W/CII 4791006 UA Leuk Esteras Negative 02/28/2018 MICR 5399605 UA WBC/hpf 1 02/28/2018 MICR 2487179 UA RBC hpf 2 02/28/2018 MICR 0438599 UA WBC auto 3.8 /uL 02/28/2018 MICR 0897896 UA RBC auto 12.2 /uL 02/28/2018 MICR 1558317 UA SQ EPI auto 2.3 /uL 02/28/2018 MICR 2692646 UA H Cast auto 0.10 /uL 02/28/2018 CBC 5828462 WBC 6.4 10e9/L 02/28/2018 CBC 6706911 RBC 5.51 10e12/L 02/28/2018 CBC 5557002 HEMOGLOBIN 16.7 g/dL 02/28/2018 CBC 9088034 HEMATOCRIT 46.9 % 02/28/2018 CBC 3539102 MCV 85.1 fL 02/28/2018 CBC 8103210 MCH 30.3 pg 02/28/2018 CBC 0728563 MCHC 35.6 g/dL 02/28/2018 CBC 1994521 PLATELET COUNT 173 10e9/L 02/28/2018 CBC 6795962 Mean Plt Volume 11.6 fL 02/28/2018 CBC 9703522 Neut Auto 51.8 % 02/28/2018 CBC 0540960 Lymph Auto 39.9 % 02/28/2018 CBC 4303644 [place] Auto 7.3 % 02/28/2018 CBC 3008520 RDW 13.3 % 02/28/2018 CBC 6593944 Eos Auto 0.8 % 02/28/2018 CBC 3606430 Baso Auto 0.2 % 02/28/2018 CBC 7163621 Neutrophil Abs 3.32 10e9/L 02/28/2018 CBC 1059322 Lymphocyte Abs 2.55 10e9/L 02/28/2018 CBC 3691590 Monocyte Abs 0.47 10e9/L 02/28/2018 CBC 3153348 Eosinophil Abs 0.05 10e9/L 02/28/2018 CBC 1570299 RDW-SD 40.8 fL 02/28/2018 CBC 1483443 Basophil Abs 0.01 10e9/L 02/28/2018 CHEM 14 1985397 AST 17 U/L 02/28/2018 CHEM 14 9553078 ALT 17 U/L 02/28/2018 CHEM 14 7545649 BUN 20 mg/dL 02/28/2018 CHEM 14 1292896 ALBUMIN 4.1 g/dL 02/28/2018 CHEM 14 5644947 CHLORIDE 97 mmol/L 02/28/2018 CHEM 14 4175696 Bili Total 1.3 mg/dL 02/28/2018 CHEM 14 6617245 ALK PHOS 78 U/L 02/28/2018 CHEM 14 0521060 SODIUM 135 mmol/L 02/28/2018 CHEM 14 3252531 CREATININE 1.09 mg/dL 02/28/2018 CHEM 14 9693209 CALCIUM 9.6 mg/dL 02/28/2018 CHEM 14 7961284 POTASSIUM 3.8 mmol/L 02/28/2018 CHEM 14 9138972 TOTAL PROTEIN 7.3 g/dL 02/28/2018 CHEM 14 2337052 GLUCOSE 349 mg/dL 02/28/2018 CHEM 14 0214871 Bicarbonate 29 mmol/L 02/28/2018 CHEM 14 8613439 AGAP 9 mmol/L 02/28/2018 [place] Spotted Fever Igg/Igm 190356 FEI MT SPOTTED FEVER IGM EIA . 09/05/2017 [place] Spotted Fever Igg/Igm 451300 RMSF, IGM 0.17 index 09/05/2017 [place] Spotted Fever Igg/Igm 009477 FEI MT SPOTTED FEVER IGG EIA FLEX . 09/05/2017 [place] Spotted Fever Igg/Igm 126530 RMSF, IGG SCREEN-FLEX Positive 09/05/2017 Fei Mtn Spot'D Fev Igg 606441 RMSF, IGG -TITER IFA <1:64 11/2016 Ehrlichia Chaffeensis Antibody Igm 733296 EHRLICHIA CHAFFEENSIS IGM < 1:16 09/03/2017 Ehrlichia Chaffeensis Antibody Igg 698740 EHRLICHIA CHAFFEENSIS IGG <1:64 09/03/2017 Lymes Disease Total Antibodies With Western Blot Reflex B. BURGDORFERI, IGG/IGM 0.223 08/30/2017 Lymes Disease Total Antibodies With Western Blot Reflex C-Reactive Protein Qnt Crqnt CRP 0.00 mg/dl 08/27/2017 Sed Rate Ord21 ESR 8 mm/hr 08/27/2017 Comp Metabolic Nql745 NA 135 mEq/L 08/16/2017 Comp Metabolic Pqy066 K 4.1 mEq/L 08/16/2017 Comp Metabolic Ftu745 CL 98 mEq/L 08/16/2017 Comp Metabolic Fqr567 CO2 28.0 mEq/L 08/16/2017 Comp Metabolic Npx238 ANION GAP 13 08/16/2017 Comp Metabolic Uwn477 GLUCOSE 299 mg/dL 08/16/2017 Comp Metabolic Gbv962 Creat 0.9 mg/dL 08/16/2017 Comp Metabolic Tte546 eGFR 90 ml/min/1.73m2 08/16/2017 Comp Metabolic Wja986 BUN 20 mg/dL 08/16/2017 Comp Metabolic Shf811 B/C Ratio 21.5 Ratio 08/16/2017 Comp Metabolic Oiy523 CALCIUM 9.2 mg/dL 08/16/2017 Comp Metabolic Sms731 ALK PHOS 84 U/L 08/16/2017 Comp Metabolic Qpj271 AST(SGOT) 19 U/L 08/16/2017 Comp Metabolic Buu558 ALT(SGPT) 24 U/L 08/16/2017 Comp Metabolic Tuq469 BILI T 1.1 mg/dL 08/16/2017 Comp Metabolic Cdl329 ALBUMIN 4.2 g/dL 08/16/2017 Comp Metabolic Mls534 TPRO 7.2 g/dL 08/16/2017 Comp Metabolic Xtw279 GLOB 3.0 g/dL 08/16/2017 Comp Metabolic Phu440 A/G Ratio 1.4 Ratio 08/16/2017 Comp Metabolic Pev326 Osmo 284 mOsmo 08/16/2017 %Hba1C Ots789 % HbA1c 17848-8 12.5 % 08/16/2017 %Hba1C Ifg437 Gluc Ave 312 mg/dL 08/16/2017 Urine Culture Ucult Preliminary NO Growth Day 1 06/23/2017 Urine Culture Ucult Complete NO Growth Day 2 06/23/2017 C RAP A SC [id number] Strep A Negative 06/08/2017 %Hba1C Mch378 % HbA1c 45109-0 9.5 % 05/04/2017 %Hba1C Noz306 Gluc Ave 226 mg/dL 05/04/2017 Tsh Ord6 [...] 31.7 pg 05/04/2017 Cbc With Differential Ord2 [place]% 8.5 % 05/04/2017 Cbc With Differential Ord2 [...] 2.48 K/ul 05/04/2017 Cbc With Differential Ord2 [place] ABS# 0.5 K/ul 05/04/2017 Cbc With Differential Ord2 Eos ABS# 0.1 K/ul 05/04/2017 Cbc With Differential Ord2 Baso ABS# 0.0 K/ul 05/04/2017 Comp Metabolic Hwt237 NA 135 mEq/L 05/04/2017 Comp Metabolic Cqs455 K 4.2 mEq/L 05/04/2017 Comp Metabolic Ysk622 CL 99 mEq/L 05/04/2017 Comp Metabolic Fuh751 CO2 26.0 mEq/L 05/04/2017 Comp Metabolic Kyw139 ANION GAP 14 05/04/2017 Comp Metabolic Kew078 GLUCOSE 277 mg/dL 05/04/2017 Comp Metabolic Aif586 Creat 0.9 mg/dL 05/04/2017 Comp Metabolic Kdh784 eGFR 96 ml/min/1.73m2 05/04/2017 Comp Metabolic Ady275 BUN 23 mg/dL 05/04/2017 Comp Metabolic Dmi553 B/C Ratio 26.1 Ratio 05/04/2017 Comp Metabolic Hix417 CALCIUM 8.9 mg/dL 05/04/2017 Comp Metabolic Ose998 ALK PHOS 81 U/L 05/04/2017 Comp Metabolic Xfz324 AST(SGOT) 21 U/L 05/04/2017 Comp Metabolic Xne864 ALT(SGPT) 27 U/L 05/04/2017 Comp Metabolic Eim848 BILI T 1.2 mg/dL 05/04/2017 Comp Metabolic Xic492 ALBUMIN 4.0 g/dL 05/04/2017 Comp Metabolic Vhu999 TPRO 6.7 g/dL 05/04/2017 Comp Metabolic Shw434 GLOB 2.7 g/dL 05/04/2017 Comp Metabolic Zme956 A/G Ratio 1.5 Ratio 05/04/2017 Comp Metabolic Wun167 Osmo 284 mOsmo 05/04/2017 C A/B FLU [id number] Influenza A Scr Negative 02/16/2017 C A/B FLU [id number] Influenza B Scr Positive 02/16/2017 Cbc With [...] 30.3 pg 05/23/2016 Cbc With Differential Ord2 Peach% 8.8 % 05/23/2016 Cbc With Differential Ord2 [...] 2.07 K/ul 05/23/2016 Cbc With Differential Ord2 Peach ABS# 0.5 K/ul 05/23/2016 Cbc With Differential Ord2 Eos ABS# 0.1 K/ul 05/23/2016 Cbc With Differential Ord2 Baso ABS# 0.0 K/ul 05/23/2016 Lipid Ord30 CHOL 397 mg/dL 05/17/2016 Lipid Ord30 HDL 48.0 mg/dl 05/17/2016 Lipid Ord30 TRIG 578 mg/dL 05/17/2016 Lipid Ord30 LDL Unable to calculate Due to elevated triglycerides mg/dL 05/17/2016 Lipid Ord30 C/HDL 8.3 Ratio 05/17/2016 %Hba1C Phn676 % HbA1c 53393-6 12.4 % 05/16/2016 %Hba1C Wcm531 Gluc Ave 309 mg/dL 05/16/2016 Cbc With [...] 30.4 pg 05/15/2016 Cbc With Differential Ord2 Peach% 7.8 % 05/15/2016 Cbc With Differential Ord2 MCHC 34.7 pg 05/15/2016 Cbc With Differential Ord2 Eos% 0.8 % 05/15/2016 Cbc With Differential Ord2 PLT 184 K/ul 05/15/2016 Cbc With Differential Ord2 Baso% 0.2 % 05/15/2016 Cbc With Differential Ord2 RDW 14.0 % 05/15/2016 Cbc With Differential Ord2 Neut ABS# 3.80 K/ul 05/15/2016 Cbc With Differential Ord2 Lymph ABS# 2.04 K/ul 05/15/2016 Cbc With Differential Ord2 Peach ABS# 0.5 K/ul 05/15/2016 Cbc With Differential Ord2 Eos ABS# 0.1 K/ul 05/15/2016 Cbc With Differential Ord2 Baso ABS# 0.0 K/ul 05/15/2016 Tsh Ord6 hTSH II 1.70 uIU/mL 05/15/2016 Comp Metabolic Xuj004 NA 135 mEq/L 05/15/2016 Comp Metabolic Oor143 K 3.9 mEq/L 05/15/2016 Comp Metabolic Roj369 CL 96 mEq/L 05/15/2016 Comp Metabolic Rjd294 CO2 27.0 mEq/L 05/15/2016 Comp Metabolic Mfa220 ANION GAP 16 05/15/2016 Comp Metabolic Las120 GLUCOSE 183 mg/dL 05/15/2016 Comp Metabolic Amz830 Creat 1.1 mg/dL 05/15/2016 Comp Metabolic Hkk708 eGFR 71 ml/min/1.73m2 05/15/2016 Comp Metabolic Xqw372 BUN 17 mg/dL 05/15/2016 Comp Metabolic Wxa879 B/C Ratio 14.9 Ratio 05/15/2016 Comp Metabolic Quz422 CALCIUM 9.6 mg/dL 05/15/2016 Comp Metabolic Wrg464 ALK PHOS 100 U/L 05/15/2016 Comp Metabolic Kpk688 AST(SGOT) 20 U/L 05/15/2016 Comp Metabolic Bbq596 ALT(SGPT) 20 U/L 05/15/2016 Comp Metabolic Juv928 BILI T 1.3 mg/dL 05/15/2016 Comp Metabolic Btp708 ALBUMIN 4.6 g/dL 05/15/2016 Comp Metabolic Xvl126 TPRO 8.1 g/dL 05/15/2016 Comp Metabolic Lfc565 GLOB 3.5 g/dL 05/15/2016 Comp Metabolic Jmp404 A/G Ratio 1.3 Ratio 05/15/2016 Comp Metabolic Kwd592 Osmo 276 mOsmo 05/15/2016 Review of Systems [...] of skin Location: face 05/04/2017 patch left tenriism Full Exam - General 1994 Constitutional general [...] CPT-4: J3301 09/30/2018 THER/PROPH/DIAG INJ SC/IM CPT-4: 24898 09/11/2018 TRIAMCINOLONE ACET INJ NOS CPT-4: J3301 09/11/2018 IMMUNIZATION ADMIN CPT -4: 73251 07/22/2018 FLU VAC NO PRSV 4 MNEA 3 YRS+ CPT-4: 21821 07/22/2018 TRIAMCINOLONE ACET INJ NOS CPT-4: J3301 06/28/2018 KETOROLAC TROMETHAMINE INJ CPT-4: J1885 05/02/2018 FLU VAC NO PRSV 4 MENA 3 YRS+ CPT-4: 22971 08/16/2017 IMMUNIZATION ADMIN CPT -4: 49735 08/16/2017 URINALYSIS NONAUTO W/O SCOPE CPT-4: 82441 06/21/2017 TRIAMCINOLONE ACET INJ NOS CPT-4: J3301 05/04/2017 THER/PROPH/DIAG INJ SC/IM CPT-4: 40329 05/04/2017 TRIAMCINOLONE ACET INJ NOS CPT-4: J3301 02/16/2017 ROCEPHIN, PER 250 MG CPT-4: J0696 02/16/2017 ROCEPHIN, PER 250 MG CPT-4: J0696 10/06/2016 URINALYSIS NONAUTO W/O SCOPE CPT-4: 48095 07/18/2016 TRIAMCINOLONE ACET INJ NOS CPT-4: J3301 01/20/2016 Vital Signs Date Vital 12/31/2018 Blood Pressure 1: 122/70 Code : 8480-6 BMI: 34.4 Code : 24531-9 Heart Rate 1 : 90 bpm Height: 6'2" SpO2: 97% Temperature: 36.6 (C) / 97.8 (F) Weight: 268 lbs 12/26/2018 Blood Pressure 1: 118/72 Code : 8480-6 BMI: 34.4 Code : 99800-0 Heart Rate 1 : 82 bpm Height: 6'2" SpO2: 98% Temperature: 36.6 (C) / 97.9 (F) Weight: 268 lbs 11/18/2018 Blood Pressure 1: 120/84 Code : 8480-6 BMI: 33.9 Code : 50906-3 Heart Rate 1 : 77 bpm Height: 6'2" SpO2: 99% Temperature: 36.7 (C) / 98.1 (F) Weight: 264 lbs 11/12/2018 Blood Pressure 1: 138/76 Code : 8480-6 BMI: 33.9 Code : 14774-9 Heart Rate 1 : 91 bpm Height: 6'2" SpO2: 99% Weight: 264 lbs 10/30/2018 Blood Pressure 1: 130/72 Code : 8480-6 BMI: 33.3 Code : 84924-1 Heart Rate 1 : 83 bpm Height: 6'2" SpO2: 95% Temperature: 36.5 (C) / 97.7 (F) Weight: 259 lbs 10/24/2018 Blood Pressure 1: 130/70 Code : 8480-6 Heart Rate 1: 95 bpm Height: 6'2" SpO2: 96% 10/23/2018 Blood Pressure 1: 100/70 Code : 8480-6 Blood Pressure 2: 102/70 Code: 8480-6 BMI: 33.3 Code: 67112-9 Heart Rate 1: 106 bpm Height: 6'2" SpO2: 98% Weight: 259 lbs 10/21/2018 Blood Pressure 1: 140/90 Code : 8480-6 BMI: 32.9 Code : 89843-1 Heart Rate 1 : 96 bpm Height: 6'2" SpO2: 92% Weight: 256 lbs 10/17/2018 Blood Pressure 1: 110/68 Code : 8480-6 BMI: 32.9 Code : 54541-7 Heart Rate 1 : 82 bpm Height: 6'2" SpO2: 97% Weight: 256 lbs 10/14/2018 Blood Pressure 1: 124/70 Code : 8480-6 BMI: 33.6 Code : 66809-1 Heart Rate 1 : 76 bpm Height: 6'2" SpO2: 99% Temperature: 36.3 (C) / 97.3 (F) Weight: 262 lbs 09/30/2018 Blood Pressure 1: 138/82 Code : 8480-6 BMI: 33.6 Code : 67643-5 Heart Rate 1 : 82 bpm Height: 6'2" SpO2: 98% Temperature: 36.3 (C) / 97.3 (F) Weight: 262 lbs 09/09/2018 Blood Pressure 1: 140/80 Code : 8480-6 BMI: 33.0 Code : 04677-5 Heart Rate 1 : 97 bpm Height: 6'2" SpO2: 93% Temperature: 36.8 (C) / 98.2 (F) Weight: 257 lbs 07/22/2018 Blood Pressure 1: 120/78 Code : 8480-6 BMI: 31.6 Code : 70318-4 Heart Rate 1 : 87 bpm Height: 6'2" SpO2: 98% Weight: 246 lbs 07/16/2018 Blood Pressure 1: 132/74 Code : 8480-6 BMI: 31.2 Code : 25409-3 Heart Rate 1 : 90 bpm Height: 6'2" SpO2: 96% Weight: 243 lbs 07/01/2018 Blood Pressure 1: 142/82 Code : 8480-6 BMI: 31.8 Code : 87856-5 Heart Rate 1 : 88 bpm Height: 6'2" SpO2: 98% Weight: 248 lbs 06/28/2018 Blood Pressure 1: 132/76 Code : 8480-6 BMI: 31.8 Code : 90682-0 Heart Rate 1 : 107 bpm Height: 6'2" SpO2: 98% Temperature: 37.9 (C) / 100.3 (F) Weight: 248 lbs 06/18/2018 Blood Pressure 1: 138/82 Code : 8480-6 BMI: 31.8 Code : 56350-2 Heart Rate 1 : 82 bpm Height: 6'2" SpO2: 97% Weight: 248 lbs 06/04/2018 Blood Pressure 1: 128/84 Code : 8480-6 BMI: 33.9 Code : 41306-7 Heart Rate 1 : 86 bpm Height: 6'2" SpO2: 95% Weight: 264 lbs 05/13/2018 Blood Pressure 1: 130/80 Code : 8480-6 BMI: 31.1 Code : 34097-7 Heart Rate 1 : 100 bpm Height: 6'2" SpO2: 94% Weight: 242 lbs 05/02/2018 Blood Pressure 1: 134/84 Code : 8480-6 BMI: 31.2 Code : 04668-6 Heart Rate 1 : 93 bpm Height: 6'2" SpO2: 98% Weight: 243 lbs 04/29/2018 Blood Pressure 1: 142/88 Code : 8480-6 BMI: 31.6 Code : 66793-5 Heart Rate 1 : 96 bpm Height: 6'2" SpO2: 96% Temperature: 36.7 (C) / 98.1 (F) Weight: 246 lbs 03/13/2018 Blood Pressure 1: 120/76 Code : 8480-6 BMI: 30.9 Code : 20991-2 Heart Rate 1 : 112 bpm Height: 6'2" SpO2: 97% Weight: 241 lbs 03/07/2018 Blood Pressure 1: 108/78 Code : 8480-6 BMI: 30.0 Code : 41502-9 Heart Rate 1 : 87 bpm Height: 6'2" SpO2: 98% Weight: 234 lbs 02/28/2018 Blood Pressure 1: 106/74 Code : 8480-6 BMI: 30.0 Code : 90444-4 Heart Rate 1 : 101 bpm Height: 6'2" SpO2: 98% Temperature: 36.4 (C) / 97.5 (F) Weight: 234 lbs 02/13/2018 Blood Pressure 1: 110/78 Code : 8480-6 BMI: 30.0 Code : 57975-4 Heart Rate 1 : 106 bpm Height: 6'2" SpO2: 98% Weight: 234 lbs 01/29/2018 Blood Pressure 1: 106/68 Code : 8480-6 BMI: 30.0 Code : 83964-1 Heart Rate 1 : 108 bpm Height: 6'2" SpO2: 98% Weight: 234 lbs 08/27/2017 Blood Pressure 1: 134/76 Code : 8480-6 Heart Rate 1: 98 bpm Height: SpO2: 97% Weight: 08/16/2017 Blood Pressure 1: 128/80 Code : 8480-6 BMI: 32.0 Code : 65358-0 Heart Rate 1 : 94 bpm Height: [...] Code : 8480-6 BMI: 31.8 Code : 09820-3 Heart Rate 1 : 102 bpm Height: [...] Code : 8480-6 BMI: 31.8 Code : 71102-7 Heart Rate 1 : 85 bpm Height: 6'2" SpO2: 96% Temperature: 36.6 (C) / 97.9 (F) Weight: 248 lbs 02/12/2017 Blood Pressure 1: 126/76 Code : 8480-6 BMI: 31.8 Code : 82885-3 Heart Rate 1 : 106 bpm Height: 6'2" SpO2: 91% Weight: 248 lbs 02/05/2017 Blood Pressure 1: 146/86 Code : 8480-6 BMI: 31.9 Code : 82381-7 Heart Rate 1 : 98 bpm Height: 6'2" SpO2: 87% Temperature: 36.7 (C) / 98.0 (F) Weight: 248 lbs 8 oz 01/29/2017 Blood Pressure 1: 132/84 Code : 8480-6 BMI: 31.8 Code : 60551-2 Heart Rate 1 : 83 bpm Height: 6'2" SpO2: 97% Weight: 248 lbs 10/13/2016 Blood Pressure 1: 128/72 Code : 8480-6 Heart Rate 1: 86 bpm SpO2: 94% 10/09/2016 Blood Pressure 1: 128/68 Code : 8480-6 Heart Rate 1: 136 bpm SpO2: 94% Temperature: 36.8 (C) / 98.2 (F) 10/06/2016 Blood Pressure 1: 140/80 Code : 8480-6 BMI: 32.1 Code : 53692-2 Heart Rate 1 : 94 bpm Height: 6'2" SpO2: 95% Weight: 250 lbs 07/18/2016 Blood Pressure 1: 128/86 Code : 8480-6 BMI: 32.1 Code : 56730-9 Heart Rate 1 : 89 bpm Height: 6'2" SpO2: 96% Weight: 250 lbs 06/22/2016 Blood Pressure 1: 118/70 Code : 8480-6 BMI: 32.1 Code : 90301-1 Heart Rate 1 : 70 bpm Height: 6'2" SpO2: 97% Weight: 250 lbs 05/23/2016 Blood Pressure 1: 128/80 Code : 8480-6 BMI: 32.1 Code : 86900-2 Heart Rate 1 : 76 bpm Height: 6'2" SpO2: 98% Weight: 250 lbs 05/15/2016 Blood Pressure 1: 110/90 Code : 8480-6 BMI: 31.3 Code : 63080-5 Heart Rate 1 : 111 bpm Height: 6'2" SpO2: 97% Temperature: 36.6 (C) / 97.8 (F) Weight: 244 lbs 01/20/2016 Blood Pressure 1: 128/76 Code : 8480-6 BMI: 33.0 Code : 55490-7 Heart Rate 1 : 103 bpm Height: [...] data Encounters Encounter Performer Location Codes Date ([id number]) 11270 EST. PATIENT, LEVEL IV Diagnosis: Type 2 diabetes mellitus with hyperglycemia[ICD10: E11.65] Diagnosis: Epigastric pain[ICD10: R10.13] Diagnosis: Pain in joints of right hand[ICD10: M25.541] Diagnosis: Shortness of breath[ICD10: R06.02] Marcela Ha MD, [facility] CPT-4: 41492 12/31/2018 18219 EST. PATIENT, LEVEL III Diagnosis: Other chest pain[ICD10: R07.89] Diagnosis: Cough[ICD10: R05] Madeline Ha MD, [facility] CPT-4: 40411 12/26/2018 ([id number]) 37485 EST. PATIENT, LEVEL III Diagnosis: Cough[ICD10: R05] Melida Ha MD, [facility] CPT-4: 63877 11/18/2018 ([id number]) 67536 EST. PATIENT, LEVEL III Diagnosis: Cough[ICD10: R05] Diagnosis: Pneumonia due to other Gram-negative bacteria[ICD10: J15.6] Marcela Ha MD, [facility] CPT-4: 88619 11/12/2018 ([id number]) 88668 EST. PATIENT, LEVEL III Diagnosis: Pneumonia due to other Gram-negative bacteria[ICD10: J15.6] Diagnosis: Cough[ICD10: R05] Melida Ha MD, [facility] CPT-4: 41602 10/30/2018 ([id number]) 13570 EST. PATIENT, LEVEL II Diagnosis: Pain in joints of right hand[ICD10: M25.541] Diagnosis: Trigger finger, right middle finger[ICD10: M65.331] Marcela Ha MD, [facility] CPT-4: 61769 10/24/2018 ([id number]) 93239 EST. PATIENT, LEVEL IV Diagnosis: Essential (primary) hypertension[ICD10: I10] Diagnosis: Type 2 diabetes mellitus with foot ulcer[ICD10: E11.621] Melida Ha MD, [facility] CPT-4: 83076 10/23/2018 ([id number]) 24527 EST. PATIENT, LEVEL III Diagnosis: Cellulitis of right finger[ICD10: L03.011] Diagnosis: Type 2 diabetes mellitus with foot ulcer[ICD10: E11.621] Diagnosis: Pain in right hand[ICD10: M79.641] Melida Ha MD, [facility] CPT-4: 07207 10/21/2018 [id number] EST. PATIENT, LEVEL III Diagnosis: Spontaneous ecchymoses[ICD10: R23.3] Diagnosis: Cellulitis of right lower limb[ICD10: L03.115] Diagnosis: Cellulitis of left lower limb[ICD10: L03.116] Madeline Ha MD, [facility] CPT-4: 62049 10/17/2018 ([id number]) 60135 EST. PATIENT, LEVEL III Diagnosis: Cough[ICD10: R05] Diagnosis: Acute bronchitis, unspecified[ICD10: J20.9] Melida Ha MD, [facility] CPT-4: 52217 10/14/2018 89572 EST. PATIENT, LEVEL III Diagnosis: Acute laryngopharyngitis[ICD10: J06.0] Diagnosis: Cough[ICD10: R05] Madeline Ha MD, [facility] CPT-4: 87595 09/30/2018 ([id number]) 41050 EST. PATIENT, LEVEL III Diagnosis: Acute recurrent maxillary sinusitis[ICD10: J01.01] Diagnosis: Cough[ICD10: R05] Diagnosis: Type 2 diabetes mellitus with hyperglycemia[ICD10: E11.65] Marcela Ha MD, [facility] CPT-4: 93272 09/09/2018 ([id number]) 23241 EST. PATIENT, LEVEL IV Diagnosis: Essential (primary) hypertension[ICD10: I10] Diagnosis: Mixed hyperlipidemia[ICD10: E78.2] Diagnosis: Bipolar disorder, current episode depressed, moderate[ICD10: F31.32] Diagnosis: Type 2 diabetes mellitus with other specified complication[ICD10: E11.69] Melida Ha MD, [facility] CPT-4: 45705 2017 ([id number]) 04999 EST. PATIENT, LEVEL III Diagnosis: Insomnia due to medical condition[ICD10: G47.01] Marcela Ha MD [facility] CPT-4: 36340 07/16/2018 ([id number]) Miscellaneous no charge Diagnosis: Cough[ICD10: R05] Madeline Ha MD [facility] CPT-4: 21994 07/01/2018 39908 EST. PATIENT, LEVEL III Diagnosis: Cough[ICD10: R05] Diagnosis: Acute laryngopharyngitis[ICD10: J06.0] Diagnosis: Other allergic rhinitis[ICD10: J30.89] Madeline Ha MD [facility] CPT-4: 25339 06/28/2018 ([id number]) 73255 EST. PATIENT, LEVEL IV Diagnosis: Type 2 diabetes mellitus with hyperglycemia[ICD10: E11.65] Diagnosis: Essential (primary) hypertension[ICD10: I10] Melida Ha MD, [facility] CPT-4: 16281 06/18/2018 ([id number]) 02352 EST. PATIENT, LEVEL IV Diagnosis: Type 2 diabetes mellitus with hyperglycemia[ICD10: E11.65] Diagnosis: Essential (primary) hypertension[ICD10: I10] Diagnosis: Localized edema[ICD10: R60.0] Melida Ha MD, [facility] CPT- 4: 26359 06/04/2018 ([id number]) 64681 EST. PATIENT, LEVEL III Diagnosis: Type 2 diabetes mellitus with hyperglycemia[ICD10: E11.65] Diagnosis: Myalgia[ICD10: M79.1] Diagnosis: Pain in right hip[ICD10: M25.551] Diagnosis: Pain in left hip[ICD10: M25.552] Marcela Ha MD, [facility] CPT-4: 39063 05/13/2018 ([id number]) 12859 EST. PATIENT, LEVEL III Diagnosis: Myalgia[ICD10: M79.1] Diagnosis: Pain in right hip[ICD10: M25.551] Diagnosis: Pain in left hip[ICD10: M25.552] Marcela Ha MD, [facility] CPT-4: 55176 05/02/2018 [id number]) 52269 EST. PATIENT, LEVEL IV Diagnosis: Essential (primary) hypertension[ICD10: I10] Diagnosis: Type 2 diabetes mellitus with hyperglycemia[ICD10: E11.65] Diagnosis: Major depressive disorder, single episode, moderate[ICD10: F32.1] Diagnosis: Myalgia[ICD10: M79.1] Marcela Ha MD, [facility] CPT-4: 72633 04/29/2018 ([id number]) 63258 EST. PATIENT, LEVEL IV Diagnosis: Type 2 diabetes mellitus with hyperglycemia[ICD10: E11.65] Diagnosis: Essential (primary) hypertension[ICD10: I10] Diagnosis: Major depressive disorder, single episode, moderate[ICD10: F32.1] Melida Ha MD, [facility] CPT-4: 82629 03/13/2018 ([id number]) 09176 EST. PATIENT, LEVEL III Diagnosis: Type 2 diabetes mellitus with hyperglycemia[ICD10: E11.65] Diagnosis: Bipolar disorder, current episode depressed, moderate[ICD10: F31.32] Diagnosis: Orthostatic hypotension[ICD10: I95.1] Marcela Ha MD, [facility] CPT-4: 28684 03/07/2018 ([id number]) 38660 EST. PATIENT, LEVEL IV Diagnosis: Type 2 diabetes mellitus with hyperglycemia[ICD10: E11.65] Diagnosis: Major depressive disorder, single episode, moderate[ICD10: F32.1] Diagnosis: Orthostatic hypotension[ICD10: I95.1] Diagnosis: Other fatigue[ICD10: R53.83] Marcela Ha MD, [facility] CPT-4: 47901 02/28/2018 71819 EST. PATIENT, LEVEL IV Diagnosis: Other fatigue[ICD10: R53.83] Diagnosis: Other malaise[ICD10: R53.81] Diagnosis: Gastro-esophageal reflux disease without esophagitis[ICD10: K21.9] Madeline Ha MD, [facility] CPT-4: 28732 02/13/2018 ([id number]) 28459 EST. PATIENT, LEVEL IV Diagnosis: Type 2 diabetes mellitus with foot ulcer[ICD10: E11.621] Diagnosis: Essential (primary) hypertension[ICD10: I10] Diagnosis: Gastro-esophageal reflux disease without esophagitis[ICD10: K21.9] Marcela Ha MD, [facility] CPT-4: 43263 01/29/2018 91953 EST. PATIENT, LEVEL III Diagnosis: Other malaise[ICD10: R53.81] Diagnosis: Other fatigue[ICD10: R53.83] Diagnosis: Pain in right shoulder[ICD10: M25.511] Diagnosis: Pain in left shoulder[ICD10: M25.512] Madeline Ha MD, [facility] CPT-4: 65795 08/27/2017 ([id number]) 87703 EST. PATIENT, LEVEL IV Diagnosis: Essential (primary) hypertension[ICD10: I10] Diagnosis: Type 2 diabetes mellitus with hyperglycemia[ICD10: E11.65] Diagnosis: VACCIN FOR INFLUENZA[ICD10: Z23] Melida Ha MD, [facility] CPT-4: 72561 08/16/2017 57062 EST. PATIENT, LEVEL III Diagnosis: Zoster without complications[ICD10: B02.9] Madeline Ha MD, [facility] CPT-4: 73473 07/26/2017 ([id number]) 62687 EST. PATIENT, LEVEL III Diagnosis: Cellulitis of right lower limb[ICD10: L03.115] Marcela Ha MD, [facility] CPT-4: 50267 07/03/2017 85469 EST. PATIENT, LEVEL II Diagnosis: Laceration without foreign body of left forearm, initial encounter[ ICD10: S51.812A] Marcela Ha MD, [facility] CPT-4: 57720 06/29/2017 ([id number]) 83689 EST. PATIENT, LEVEL III Diagnosis: Cellulitis of right lower limb[ICD10: L03.115] Diagnosis: Type 2 diabetes mellitus with foot ulcer[ICD10: E11.621] Marcela Ha MD , [facility] CPT-4: 87065 06/18/2017 ([id number]) 63596 EST. PATIENT, LEVEL IV Diagnosis: Cellulitis of right lower limb[ICD10: L03.115] Diagnosis: Acute laryngopharyngitis[ICD10: J06.0] Diagnosis: Gastro-esophageal reflux disease without esophagitis[ICD10: K21.9] Marcela Ha MD, [facility] CPT-4: 64165 06/07/2017 ([id number]) 86345 EST. PATIENT, LEVEL III Diagnosis: Type 2 diabetes mellitus with hyperglycemia[ICD10: E11.65] Diagnosis: Insect bite (nonvenomous) of abdominal wall, initial encounter[ICD10 : S30.861A] Marcela Ha MD, [facility] CPT-4: 38092 05/17/2017 ([id number]) 21899 EST. PATIENT, LEVEL III Diagnosis: Allergic contact dermatitis due to plants, except food[ICD10: L23.7] Melida Ha MD, [facility] CPT-4: 90668 05/04/2017 ([id number]) 39782 EST. PATIENT, LEVEL III Diagnosis: Essential (primary) hypertension[ICD10: I10] Marcela Ha MD, [facility] CPT-4: 03430 03/15/2017 ([id number]) 27708 EST. PATIENT, LEVEL III Diagnosis: Cough[ICD10: R05] Diagnosis: Essential (primary) hypertension[ICD10: I10] Marcela Ha MD, [facility] CPT-4: 28157 03/01/2017 ([id number]) 39288 EST. PATIENT, LEVEL III Diagnosis: Cough[ICD10: R05] Diagnosis: Nasal congestion[ICD10: R09.81] Diagnosis: Acute recurrent maxillary sinusitis[ICD10: J01.01] Marcela Ha MD, [facility] CPT-4: 51170 02/16/2017 ([id number]) 83331 EST. PATIENT, LEVEL III Diagnosis: Type 2 diabetes mellitus with hyperglycemia[ICD10: E11.65] Marcela Ha MD, [facility] CPT-4: 82802 02/12/2017 ([id number]) 72308 EST. PATIENT, LEVEL IV Diagnosis: Type 2 diabetes mellitus with hyperglycemia[ICD10: E11.65] Diagnosis: Muscle weakness (generalized)[ICD10: M62.81] Diagnosis: Disorientation, unspecified[ICD10: R41.0] Marcela Ha MD, [facility] CPT-4: 33225 02/05/2017 ([id number]) Patient admitted to the hospital from clinic (NO CHARGE) Diagnosis: Type 2 diabetes mellitus with hyperglycemia[ICD10: E11.65] Diagnosis: Disorientation, unspecified[ICD10: R41.0] Diagnosis: Muscle weakness (generalized)[ICD10: M62.81] Marcela Ha MD, [facility] CPT-4: 95224F 01/29/2017 ([id number]) Miscellaneous no charge Diagnosis: Cellulitis of right lower limb[ICD10: L03.115] Marcela Ha MD [facility] CPT-4: 11173 10/13/2016 ([id number]) Miscellaneous no charge Diagnosis: Type 2 diabetes mellitus with foot ulcer[ICD10: E11.621] Diagnosis: Pain in right foot[ICD10: M79.671] Marcela Ha MD [facility] CPT-4: 20393 10/09/2016 69140 EST. PATIENT, LEVEL II Diagnosis: Cellulitis of right lower limb[ICD10: L03.115] Marcela Ha MD [facility] CPT-4: 17779 10/06/2016 ([id number]) 46928 EST. PATIENT, LEVEL IV Diagnosis: Low back pain[ICD10: M54.5] Diagnosis: Other deformities of toe(s) (acquired), left foot[ICD10: M20.5X2] Diagnosis: Type 2 diabetes mellitus with foot ulcer[ICD10: E11.621] Marcela Ha MD [facility] CPT-4: 02544 07/18/2016 ([id number]) 55227 EST. PATIENT, LEVEL III Diagnosis: Type 2 diabetes mellitus with hyperglycemia[ICD10: E11.65] Marcela Ha MD, [facility] CPT-4: 63346 06/22/2016 ([id number]) 02143 EST. PATIENT, LEVEL IV Diagnosis: Type 2 diabetes mellitus with hyperglycemia[ICD10: E11.65] Diagnosis: Mixed hyperlipidemia[ICD10: E78.2] Diagnosis: Other hemoglobinopathies[ICD10: D58.2] Marcela Ha MD [facility] CPT-4: 93327 05/23/2016 ([id number]) 79156 EST. PATIENT, LEVEL IV Diagnosis: Type 2 diabetes mellitus with other specified complication[ICD10: E11.69] Diagnosis: Dehydration[ICD10: E86.0] [facility] CPT-4: 99649 05/15/2016 ([id number]) OFFICE VISIT, NEW - LEVEL 3 Diagnosis: Allergic contact dermatitis due to plants, except food[ICD10: L23.7] [facility] CPT-4: 58374 01/20/2016 Plan of Care Planned Activity Notes [...] concerns. 12/26/2018 [facility]ment[id number] ([facility] Complex 12/26/2018 Patient Education: Patient Medication Summary Completed 12/26/2018 Referral: Andrew Cross Patient informed. Referral info faxed. Completed Visit Plan: cough - improved - continue with inhalers - continue with symbicort - rx for proair for PRN use when pt is feelign short of breath with activity. 11/18/2018 Appointment: [id number] (15 min) Moderate 11/18/2018 Patient Education: Patient [...] of plan. 11/12/2018 Appointment: Marcela Oshea WPtel: [phone] (30 min) Complex 11/12/2018 Patient Education: Patient Medication Summary Completed 11/12/2018 Patient Education: Symbicort - 18-64 - eCopay Completed 11/12/2018 Care Plan: Referral Order SNOMED-CT : [id number] Pending 11/12/2018 Referral: Niko Mantilla Referral Completed 11/04/2018 Visit Plan: Pneumonia, cough - recent diagnosis of Moraxella Cattharalis - with sensitivity to levaquin - will give 2 wks of levaquin since he had improvement but no full resolution of symptoms. 10/30/2018 Appointment: Melida Ha WPtel: [facility] 30 min appointments only in [...] for evaluation 10/24/2018 Appointment: Marcela Oshea WPtel: [phone] (30 min) Complex 10/24/2018 Patient Education: Patient Medication Summary Completed 10/24/2018 Care Plan: Referral Order SNOMED-CT : [id number] Pending 10/24/2018 Visit Plan: Hypotension - discussed [...] controlled. 10/23/2018 Appointment: Melida Ha [facility]el[id number] (15 min) Moderate 10/23/2018 Patient Education: Patient [...] assessment and plan. 10/21/2018 Appointment: Marcela Osheatel: [phone] (30 min) Complex 10/21/2018 Patient Education: Patient [...] warmth, discharge. 10/17/2018 Appointment: Madeline Kennedy WPtel: [facility] (15 min) Moderate 10/17/2018 Patient Education: [...] acutely worsen. 10/14/2018 Appointment: Marcela Oshea WPtel: [phone] (15 min) Moderate 10/14/2018 Patient Education: Patient Medication Summary Completed 10/14/2018 Care Plan: CHEST X-RAY 2VW FRONTAL&LATL LOINC : 79357-7 Pending 10/14/2018 Visit Plan: URI - Pt [...] allergy spray. 09/30/2018 Appointment: Madeline Kennedy WPtel: [address] [place], [place] [phone] (15 min) Moderate 09/30/2018 Patient [...] Hgb A1C 09/09/2018 Appointment: Marcela Oshea WPtel: [address] [place], [place] [phone] (15 min) Moderate 09/09/2018 Patient Education: Patient Medication Summary Completed 09/09/2018 Patient Education: Patient Medication Summary Completed 09/06/2018 Patient Education: Cholesterol Management Completed 09/06/2018 Care Plan: Comp Metabolic Pending 09/06/2018 Care Plan: Cbc With Differential Pending 09/06/2018 Care Plan: %Hba1C LOINC : 54575-2 Pending 09/06/2018 Care Plan: Tsh Pending 09/06/2018 Care Plan: Lipid Pending 09/06/2018 Appointment: Marcela Oshea WPtel: [address] [place], [place] [phone] (15 min) Moderate 08/26/2018 Appointment: Marcela Oshea WPtel: [address] [place], [place] [phone] (15 min) Moderate 08/23/2018 Visit Plan: Hypertension [...] clinic. 07/22/2018 Appointment: Melida Ha WPtel: [phone] [phone] (15 min) Moderate 07/22/2018 Patient Education: Patient [...] insomnia. 07/16/2018 [facility]ment[phone] (30 min) Complex 07/16/2018 Patient Education: Patient Medication Summary Completed 07/16/2018 Visit Plan: cough - improved - notify clinic if symptoms do not completely resolve, or with any questions or concerns. 07/01/2018 Appointment: Mad[facility]el[phone] (15 min) Moderate 07/01/2018 Patient Education: [...] Appointment: Madeline Kennedy WPtel: [facility]66[facility] (15 min) Moderate 06/28/2018 Patient Education: Patient Medication Summary Completed 06/28/2018 Patient Education: Patient Medication Summary Completed 06/21/2018 Care Plan: Annabel RICKS [place] Pending 06/21/2018 Visit Plan: Diabetes Mellitus - [...] Appointment: Melida Ha WPtel: [facility]8 [facility] (15 min) Moderate 06/18/2018 Patient [...] improves. 06/04/2018 Appointment: [facility]el: [phone] [place] (15 min) Moderate 06/04/2018 Patient Education: [...] allow for greater blood glucose control. Joint kylj-jhssywag-glguxkc- symptoms have improved -stop meloxicam due to upset stomach-call if symptoms return 05/13/2018 Appointment: Marcel[phone] [place] (30 min) Complex 05/13/2018 Patient Education: Patient Medication Summary Completed 05/13/2018 Visit Plan: Bilateral hip dkvn-mbxwplis-appjvll IM injection administered today for c/o continued myalgia/arthralgia. Patient to start taking Meloxicam 15mg PO daily. Advised to return to clinic if symptoms do not improve. 05/02/2018 Appointment: Marcela Oshea WPtel: [phone] [phone] (30 min) Complex 05/02/2018 Patient Education: Patient [...] readings at home. Diabetes Mellitus -check labs Bqrfppsa-rhajyno-qzpy bite-rx for doxycycline-follow up in 2 weeks 04/29/2018 Appointment: Marcela Oshea WPtel: [phone] [phone] [place] (15 min) Moderate 04/29/2018 Patient Education: Patient Medication Summary Completed 04/29/2018 Appointment: Melida Ha WPtel: [phone] [phone] (15 min) Moderate 04/15/2018 Appointment: Marcela Oshea WPtel: [phone] [phone] [place] (30 min) Complex 03/21/2018 Visit Plan: [...] on cymbalta 03/13/2018 Appointment: Melida Ha WPtel: [phone] [facility] [place] (30 min) Complex 03/13/2018 Patient Education: Patient Medication Summary Completed 03/13/2018 Visit Plan: DM-continue same medications-monitor blood sugars routinely as directed -rx for new glucometer and test strips provided Bipolar-currently depressed-patient start on vraylar-follow up in 2 weeks, sooner if needed. Patient and verbalied understanding of plan. Hypotension- stay off losartan 03/07/2018 Appointment: Marcela Oshea WPtel: [phone] [phone] (30 min) Complex 03/07/2018 Patient Education: Patient Medication Summary Completed 03/07/2018 Appointment: Melida Ha WPtel: [phone] [facility] (15 min) Moderate 03/04/2018 Visit Plan: Hypotension-continue [...] patient. 02/28/2018 Appointment: Marcela Oshea WPtel: [phone] [phone] (30 min) Complex 02/28/2018 Patient Education: Patient [...] improving. 02/13/2018 Appointment: Madeline Kennedy [facility]el[phone] (15 min) Moderate 02/13/2018 Patient Education: Patient Medication Summary Completed 02/13/2018 Referral: Sun Glynn Patient informed. Referral info faxed. Completed Visit Plan: DM-weight loss-not checking blood sugars- patient sent for labs today HTN-low ynwyg-kkmmxaz-oknyt labs Callus of foot and fissue of [...] Marcela Oshea WPtel: [phone] [place] (30 min) Complex 01/29/2018 Patient Education: Patient Medication Summary Completed 01/29/2018 Care Plan: Comp Metabolic Cancelled 01/29/2018 Care Plan: Cbc With Differential Cancelled 01/29/2018 Care Plan: %Hba1C LOINC : 43602-9 Cancelled 01/29/2018 Care Plan: Referral Order SNOMED-CT : [id number] Cancelled 01/29/2018 Visit Plan: Fatigue, malaise, joint [...] concerns. 08/27/2017 Appointment: Madeline Kennedy [facility]Ptel[phone] (15 min) Moderate 08/27/2017 Patient Education: [...] - 08/16/2017 Appointment: Melida Ha WPtel: [phone] [facility] (30 min) Complex 08/16/2017 Patient Education: Patient Medication Summary Completed 08/16/2017 Patient Education: Obesity Completed 08/16/2017 Appointment: Madeline Kennedy [facility]Ptel: [phone] (30 min) Complex 08/07/2017 Visit Plan: [...] contagious. 07/26/2017 Appointment: Madeline Kennedy WPtel: [phone] [phone] (15 min) Moderate 07/26/2017 Patient Education: Patient Medication Summary Completed 07/26/2017 Visit Plan: Cellulitis right foot-cultured today in the office-home health to reapply wound vac--appt with wound care on to evaluate for debridement- 07/03/2017 Appointment: Marcela Oshea WPtel: [address] [place], [place] [phone] (30 min) Complex 07/03/2017 Patient Education: Patient Medication Summary Completed 07/03/2017 Visit Plan: Abrasion left arm - Pt was instructed to keep the wound clean, wash with antibacterial soap, use triple antibiotic ointment, call if redness, pustular drainage, or any other acute concerns. 06/29/2017 Appointment: Marcela Oshea WPtel: [address] [place], [place] [phone] (15 min) Moderate 06/29/2017 Patient Education: Patient [...] of plan. 06/18/2017 Appointment: Marcela Oshea WPtel: [address] [place], [place] [phone] (15 min) Moderate 06/18/2017 Patient Education: Patient [...] diet-start prilosec 06/07/2017 Appointment: Marcela Oshea WPtel: [address] [place], [place] [phone] (10 min) Simple 06/07/2017 [...] doxycycline 05/17/2017 Appointment: Marcela Oshea WPtel: [phone] [phone] (30 min) Complex 05/17/2017 Patient Education: Patient [...] if you want blue minesh called into [facility]. 05/04/2017 Appointment: Marcela Oshea WPtel: [phone] (30 min) Complex 05/04/2017 Patient Education: Patient [...] home. Cough-resolved 03/15/2017 Appointment: Marcela Oshea WPtel: [facility]0 [phone] (15 min) Moderate 03/15/2017 Patient Education: Patient Medication Summary Completed 03/15/2017 Appointment: Marcela Oshea WPtel: [facility]5 [facility] [place] [address] (30 min) Complex 03/12/2017 Visit Plan: Feng [...] Appointment: Marcela Oshea WPtel: [facility]1 [facility] [place] [address] (15 min) Moderate 02/16/2017 Patient Education: Patient [...] Marcela Oshea WPtel: [facility]5 [facility] [place] [address] (30 min) Complex 02/12/2017 Patient Education: Patient Medication Summary Completed 02/12/2017 Appointment: Marcela Oshea WPtel: [address] [place], [place] [phone] [place] [address] (30 min) Complex 02/06/2017 Visit Plan: Diabetes [...] will consider 02/05/2017 Appointment: Marcela Oshea WPtel: [phone] [phone] (30 min) Complex 02/05/2017 Patient Education: Patient Medication Summary Completed 02/05/2017 Appointment: Marcela Oshea WPtel: [phone] [phone] [place] (30 min) Complex 01/30/2017 Visit Plan: Acute confusion-uncontrolled diabetes- chronically noncompliant with treatment and stopped his insulin several months ago-r/o stroke vs DKA-Dr Ha in to evaluate patient-plan to admit for further work up and treatment-patient's called and she transported him to the hospital 01/29/2017 Appointment: Marcela Oshea WPtel: [phone] [place] (30 min) Complex 01/29/2017 Patient Education: Patient Medication Summary Completed 01/29/2017 Patient Education: Obesity Completed 01/29/2017 Visit Plan: Right foot pain-MRI shows foreign body-appt with Dr Grewal for evaluation on Sunday. 10/13/2016 Appointment: Marcela Oshea WPtel: [address] [place], [place] [phone] [place] (15 min) Moderate 10/13/2016 Patient Education: Patient Medication Summary Completed 10/13/2016 Appointment: Marcela Oshea WPtel: [phone] [phone] [place] (30 min) Complex 10/12/2016 Visit Plan: Right foot pkah-pofbegpg-hjokf washer dropped on foot-xray negative but pain continues to increase-recommend MRI of foot for further evaluation-refer to wound care for lesions on right foot, patient has diabetes and history of osteomyelitis-culture obtained today-continue oral abx- follow up in the office on , sooner if needed 10/09/2016 Visit Plan: Right foot swwy-nbbywryj-xssfn washer dropped on foot-xray negative but pain continues to increase-recommend MRI of foot for further evaluation-refer to wound care for lesions on right foot, patient has diabetes and history of osteomyelitis-culture obtained today-continue oral abx- follow up in the office on , sooner if needed 10/09/2016 Visit Plan: Right foot pivy-lqxdrxyk-qhyss washer dropped on foot-xray negative but pain continues to increase-recommend MRI of foot for further evaluation-refer to wound care for lesions on right foot, patient has diabetes and history of osteomyelitis-culture obtained today-continue oral abx- follow up in the office on , sooner if needed 10/09/2016 Appointment: Marcela Oshea WPtel: [address] [place] [address] (30 min) Complex 10/09/2016 Patient Education: Patient Medication Summary Completed 10/09/2016 Visit Plan: Cellulitis - continue with oral antibiotics as previously directed, return to clinic as previously directed, call for acute change in symptoms, worsening redness, warmth, discharge. 10/06/2016 Appointment: Marcela Oshea WPtel: [address] [place] [address] (10 min) Simple 10/06/2016 Patient Education: Patient Medication Summary Completed 10/06/2016 Appointment: Marcela Oshea WPtel: [address] [place], [place] [phone] (30 min) Complex 08/24/2016 Referral: Sun Glynn Referral Completed 07/21/2016 Visit Plan: Low back pain- history of spinal fusion- patient for xray lumbar spine-RX sent to [facility] and instructed on use-topical voltaren samples provided and instructed on use. Ok to use tylenol as needed as well. The patient is to call the office if the pain is worsening or does not improve. Pressure ulcer left 4th toe-refer to Dr Glynn for evaluation 07/18/2016 Appointment: Marcela Oshea WPtel: [phone] (30 min) Complex 07/18/2016 Patient Education: Patient Medication Summary Completed 07/18/2016 Patient Education: Obesity Completed 07/18/2016 Care Plan: Referral Order SNOMED-CT : [id number] Cancelled 07/18/2016 Visit Plan: Diabetes Mellitus - [...] control. 06/22/2016 Appointment: Marcela Oshea WPtel: [phone] (30 min) Complex 06/22/2016 Patient Education: [...] today 05/23/2016 Appointment: Marcela Oshea WPtel: [phone] [phone] (30 min) Complex 05/23/2016 Patient Education: Patient [...] of plan. 05/15/2016 Appointment: Marcela Oshea WPtel: [address] [place] [phone] (15 min) Moderate 05/15/2016 Patient Education: Patient [...] if you want blue goo called into [facility]. xray lumbar spine flexeril as needed voltaren gel ulcer left 4th toe-refer to regional account executive . Low back pain- history of spinal fusion-patient for xray lumbar spine-RX sent to [facility] and instructed on use-topical voltaren samples [...] pustular drainage, or any other acute concerns. will check labs and EKG if it is negative will start you on an antibiotic -. chest pain - EKG and cardiac enzymes OK - discussed with Dr. Ha - will treat for pneumonia - pt is to notify clinic if symptoms do not improve, if they worsen, or with any changes questions, or concerns. . Pneumonia, cough - recent diagnosis of Moraxella Cattharalis - with sensitivity to levaquin - will give 2 wks of levaquin since he had improvement but no full resolution of symptoms. . Hypertension - well controlled - continue [...] for fracture from injury . Right foot mmxj-qqgjwupt-xqgrq washer dropped on foot-xray negative but pain [...] for fracture from injury . Right foot sukn-orgctdvr-ttnch washer dropped on foot-xray negative but pain [...] for fracture from injury . Right foot xwqd-hujqcwii-copuz washer dropped on foot-xray negative but pain continues to increase-recommend MRI of foot for further evaluation-refer to wound care for lesions on right foot, patient has diabetes and history of osteomyelitis-culture obtained today-continue oral abx-follow up in the office on , sooner if needed PROTONIX 40MG DAILY CHECK LABS APPT WITH DR BRENNAN . Epigastric pain -start protonix daily- monitor symptoms Chest pain -work up negative done last week with Madeline-recommend appt with Dr Brennan Joint pain-check inflammation makers DM-check Hgb a1c . Bilateral hip rjab-gztcivju-ietymsm IM injection administered today for c/o continued myalgia/arthralgia. Patient to start taking Meloxicam 15mg PO daily. Advised to return to clinic if symptoms do not improve. . DM-weight loss-not checking blood sugars-patient sent for labs today HTN-low gdwfy-xpjgkwj-jrlaq labs Callus of foot and fissue of [...] readings are starting to become less controlled. Kuskgtryc-zxjnqgqe-crfpfwhg to monitor Generalized weakness-refer for PT-patient refuses today but will consider CT Chest sputum culture symbicort 2 puffs [...] a bronchoscopy. Patient verbalized understanding of plan. CT Chest sputum culture symbicort 2 puffs [...] a bronchoscopy. Patient verbalized understanding of plan. . Hypertension - well controlled - continue [...] allow for greater blood glucose control. Joint uxqp-kqmcwokz-japxtxu-symptoms have improved -stop meloxicam due to upset [...] to the hospital decrease the valsartan to 1/2 pill daily keep a log of your [...] readings are starting to become less controlled. decrease novolog to 8 units at meals. [...] physical exam, and the assessment and plan. DOXYCYCLINE 100MG TWICE DAILY TORADOL INJECTION [...] readings at home. Diabetes Mellitus -check labs Qujqyqts-cpqyjgl-renf bite-rx for doxycycline-follow up in 2 weeks [...]
--- OUTSIDE RECORDS SUMMARY | 2019-01-01 14:11 | XMS REPORT | CCD ---
Author Author Madeline Kennedy MD, [facility] Address [address] [place] [address] Phone Care Team Providers [employer] Pilot Name Role Phone PP Unavailable CCM Unavailable Summary Purpose Interface Exchange Insurance Providers Payer name Policy type / Coverage type Covered constitution party ID Effective Begin Date Effective End Date [place] [employer] Commercial Insurance [id number] Unknown Family history Father Diagnosis Age At Onset Hyperlipidemia Unknown Heart Attack Unknown Mother Diagnosis Age At Onset Hypertension Unknown Social History Social History Element Codes Description Effective Dates Marital status Unknown Mignon 01/20/2016 Number of children Unknown 4 01/20/2016 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/[address]: 456549583 Never smoker 01/20/[address]: 579045575 Never drinks alcohol 01/20/2016 Allergies, Adverse Reactions, Alerts Substance Reaction Codes Entered Date Inactivated Date Status * NO KNOWN DRUG ALLERGIES Unknown 05/23/2016 No Inactive Date Active Past Medical History Illness Codes Condition Status Onset Date Resolved Date Cough ICD-9: 786.2 ICD-10: R05 Active 02/16/2017 Unknown Other chest pain ICD-9 : 786.59 ICD-10: R07.89 Active 12/26/2018 Unknown Pneumonia due to other Gram-negative bacteria ICD-9: 482.83 ICD-10: J15.6 Active 10/30/2018 Unknown Pain in joints of right hand ICD-9: 719.44 ICD-10: M25.541 Active 10/24/2018 Unknown Trigger finger, right middle finger ICD-9: [...] ICD-9: 250.00 ICD-10: E11.65 Active 06/21/2016 Unknown Mixed hyperlipidemia ICD-9: 272.2 ICD-10: E78.2 [...] Problems Condition Codes Effective Dates Condition Status Cough ICD-9: 786.2 ICD-10: R05 02/16/2017 Active Other chest pain ICD-9 : 786.59 ICD-10: R07.89 12/26/2018 Active Pneumonia due to other Gram-negative bacteria ICD-9: 482.83 ICD-10: J15.6 10/30/2018 Active Pain in joints of right hand ICD-9: 719.44 ICD-10: M25.541 10/24/2018 Active Trigger finger, right middle finger ICD-9: [...] hyperglycemia ICD-9: 250.00 ICD-10: E11.65 06/21/2016 Active Mixed hyperlipidemia ICD-9: 272.2 ICD-10: E78.2 [...] Start Date Stop Date Status Fill Instructions Augmentin 500 mg-125 mg tablet RxNorm: 493578 1 Tablet(s) PO TID 12/26/2018 01/04/2019 Active Augmentin 500 mg-125 mg tablet RxNorm: 971067 1 Tablet(s) PO TID 12/26/2018 12/25/2018 Inactive ProAir HFA 90 mcg/actuation aerosol inhaler RxNorm: 4657529 2 Puff(s) INH QID as needed 11/18/2018 No Stop Date Active Lyrica 50 mg capsule RxNorm: 625898 Capsule(s) PO daily 201802/08/2019 Active Cymbalta 30 mg capsule,delayed release RxNorm: 733449 1 Capsule(s) PO QAM 11/13/2018 06/10/2019 Active Lyrica 50 mg capsule RxNorm: 503119 Capsule(s) PO daily 201811/12/2018 Inactive Symbicort 160 mcg-4.5 mcg/actuation HFA aerosol inhaler RxNorm: 1960534 2 Puff(s) INH BID 11/12/2018 12/11/2018 Inactive albuterol sulfate 2.5 mg/3 mL (0.083 %) solution for nebulization RxNorm: 536354 3 Milliliter(s) INH UD 11/07/2018 No Stop Date Active azithromycin 500 mg tablet RxNorm: 692903 500mg on day 1 then 250 mg daily x 4 more day Tablet(s) PO 11/07/20182018 Inactive 500mg on day 1 and then 250mg daily 2-4 azithromycin 500 mg tablet RxNorm: 106759 500mg on day 1 then 250 mg daily x 4 more day Tablet(s) PO 11/07/20182018 Inactive 500mg on day 1 and then 250mg daily 2-4 cefdinir 300 mg capsule RxNorm: 136051 1 Capsule(s) PO BID 01/201911/06/2018 Inactive cefdinir 300 mg capsule RxNorm: 003235 1 Capsule(s) PO BID 01/201911/13/2018 Inactive Levaquin 500 mg tablet RxNorm: 487253 1 Tablet(s) PO daily TAKE ONE TABLET BY MOUTH DAILY UNTIL GONE 10/31/20182018 Inactive Levaquin 500 mg tablet RxNorm: 578631 1 Tablet(s) PO daily 11/12/2018 Inactive valsartan 80 mg tablet RxNorm: 463493 1/2 Tablet(s) PO daily 04/20/2019 Active doxycycline hyclate 100 mg tablet RxNorm: 2551820 1 Tablet(s) PO BID 10/21/2018 10/27/2018 Inactive ketorolac 60 mg/2 mL intramuscular solution RxNorm: 6949524 Milliliter(s) IM 10/21/2018 10/21/2018 Inactive Levaquin 500 mg tablet RxNorm: 820100 1 Tablet(s) PO daily 10/31/2018 Inactive Tessalon Perles 100 mg capsule RxNorm: 527427 1-2 Capsule(s) PO TID PRN 10/14/2018 No Stop Date Active albuterol sulfate 2.5 mg/3 mL (0.083 %) solution for nebulization RxNorm: 555325 3 Milliliter(s) INH UD 10/14/201812/2018 Inactive Levaquin 500 mg tablet RxNorm: 499320 1 Tablet(s) PO daily 08/201810/16/2018 Inactive Coreg 6.25 mg tablet RxNorm: 345710 TAKE ONE TABLET BY MOUTH TWICE A DAY 09/30/2018 03/28/2019 Active albuterol sulfate 2.5 mg/3 mL (0.083 %) solution for nebulization RxNorm: 478153 3 Milliliter(s) INH UD 09/30/201807/2018 Inactive Kenalog 40 mg/mL suspension for injection RxNorm: 0694996 1.5 Milliliter(s) Inj 09/30/2018 09/30/2018 Inactive Keflex 500 mg capsule RxNorm: 638711 1 Capsule(s) PO TID 201710/03/2018 Inactive prednisone 20 mg tablet RxNorm: 303328 2 Tablet(s) PO daily 09/29/2018 Inactive Kenalog 40 mg/mL suspension for injection RxNorm: 0967896 Milliliter(s) Inj 09/11/2018 09/11/2018 Inactive Zyrtec 10 mg tablet RxNorm: 1165759 1 Tablet(s) PO daily 09/0910/08/2018 Inactive Keflex 500 mg capsule RxNorm: 768136 1 Capsule(s) PO TID 201709/15/2018 Inactive Tresiba FlexTouch U-200 insulin 200 unit/mL (3 mL) subcutaneous pen RxNorm: 0559521 50 Unit(s) SQ daily 08/30/2018 08/29/2018 Inactive please give him 30 day supply Tresiba FlexTouch U-200 insulin 200 unit/mL (3 mL) subcutaneous pen RxNorm: 1711805 50 Unit(s) SQ daily 08/30/2018 09/28/2018 Inactive please give him 30 day supply Novolog Flexpen U-100 Insulin aspart 100 unit/mL subcutaneous RxNorm: 5297151 8 Unit(s) SQ AC 08/13/2018 No Stop Date Active Novolog Flexpen U-100 Insulin aspart 100 unit/mL subcutaneous RxNorm: 6914764 8 Unit(s) SQ AC 07/22/20182017 Inactive this is an update on his medication Novolog Flexpen U-100 Insulin aspart 100 unit/mL subcutaneous RxNorm: 8161891 12 Unit(s) SQ AC 07/05/20182017 Inactive this is an update on his medication Toujeo SoloStar U-300 Insulin 300 unit/mL (1.5 mL) subcutaneous pen RxNorm: 3064989 INJECT 50 UNITS UNDER THE SKIN DAILY 07/01/2018 08/29/2018 Inactive Mucinex 600 mg tablet, extended release RxNorm: 635707 1 Tablet(s) PO BID 06/28/2018 07/04/2018 Inactive Zofran 4 mg tablet RxNorm: 572071 1 Tablet(s) PO TID as needed nausea 06/28/2018 07/02/2018 Inactive Kenalog 40 mg/mL suspension for injection RxNorm: 7825828 Milliliter(s) Inj 06/28/2018 06/28/2018 Inactive Flonase Allergy Relief 50 mcg/actuation nasal spray, suspension RxNorm: 8559915 1 [facility] NASAL BID 06/28/20182017 Inactive Lyrica 50 mg capsule RxNorm: 497272 Capsule(s) PO daily 201707/06/2018 Inactive Novolog Flexpen U-100 Insulin aspart 100 unit/mL subcutaneous RxNorm: 3709623 10 Unit(s) SQ AC 06/18/20182017 Inactive this is an update on his medication Lasix 20 mg tablet RxNorm: 820440 1 Tablet(s) PO BIW 201707/02/2018 Inactive atorvastatin 80 mg tablet RxNorm: 305516 1 Tablet(s) PO QHS 04/201812/06/2018 Inactive clonazepam 1 mg tablet RxNorm: 054428 2 Tablet(s) PO HS 201706/04/2019 Active clonazepam 1 mg tablet RxNorm: 859235 2 Tablet(s) PO HS as needed 06/10/2018 06/09/2018 Inactive Lyrica 50 mg capsule RxNorm: 254066 Capsule(s) PO daily 201707/08/2018 Inactive Lasix 20 mg tablet RxNorm: 529612 1 Tablet(s) PO TIW 201706/11/2018 Inactive Toujeo SoloStar U-300 Insulin 300 unit/mL (1.5 mL) subcutaneous pen RxNorm: 0775349 50 Unit(s) SQ daily 05/07/2018 06/30/2018 Inactive meloxicam 15 mg tablet RxNorm: 730213 15 Milligram(s) PO daily 05/02/2018 05/12/2018 Inactive ketorolac 30 mg/mL injection solution RxNorm: 393394 2 Milliliter(s) Inj 05/02/2018 05/02/2018 Inactive Toujeo SoloStar U-300 Insulin 300 unit/mL (1.5 mL) subcutaneous pen RxNorm: 7883179 45 Unit(s) daily 04/29/2018 Inactive clonazepam 1 mg tablet RxNorm: 045676 1 Tablet(s) PO Q8 as needed 04/29/2018 06/09/2018 Inactive doxycycline hyclate 100 mg tablet RxNorm: 4786944 1 Tablet(s) PO BID 04/29/2018 05/12/2018 Inactive Cymbalta 30 mg capsule,delayed release RxNorm: 903910 1 Capsule(s) PO QAM 03/13/2018 10/08/2018 Inactive Lexapro 10 mg tablet RxNorm: 458420 1 Tablet(s) PO QPM 201703/03/2018 Inactive Toujeo SoloStar U-300 Insulin 300 unit/mL (1.5 mL) subcutaneous pen RxNorm: 1898970 20 Unit(s) daily 02/28/2018 Inactive Protonix 40 mg tablet,delayed release RxNorm: 440408 1 Tablet(s) PO daily 01/29/2018 06/09/2018 Inactive clonazepam 1 mg tablet RxNorm: 785833 1 Tablet(s) PO Q8 as needed 12/12/2017 03/10/2018 Inactive Tamiflu 75 mg capsule RxNorm: 447674 1 Capsule(s) PO BID 201712/03/2017 Inactive doxycycline hyclate 100 mg capsule RxNorm: 9279219 1 Capsule(s) PO BID 09/07/2017 09/20/2017 Inactive doxycycline hyclate 100 mg capsule RxNorm: 1614745 1 Capsule(s) PO BID 08/27/2017 09/06/2017 Inactive prednisone 20 mg tablet RxNorm: 071402 2 Tablet(s) PO daily 08/31/2017 Inactive clopidogrel 75 mg tablet RxNorm: 693529 1 Tablet(s) PO daily 06/09/2018 Inactive atorvastatin 40 mg tablet RxNorm: 570579 1 Tablet(s) PO QHS 02/27/2018 Inactive losartan 25 mg tablet RxNorm: 000915 TAKE ONE TABLET BY MOUTH DAILY 08/22/2017 06/09/2018 Inactive Toujeo SoloStar 300 unit/mL (1.5 mL) subcutaneous insulin pen RxNorm: 4836652 45 Unit(s) daily 08/17/2017 08/20/2017 Inactive mupirocin 2 % topical ointment RxNorm: 036538 1 Application TOP TID to the lesions on chest 08/16/2017 08/25/2017 Inactive Toujeo SoloStar 300 unit/mL (1.5 mL) subcutaneous insulin pen RxNorm: 5647064 40 Unit(s) daily 08/16/2017 08/16/2017 Inactive valacyclovir 1 gram tablet RxNorm: 794509 1 Tablet(s) PO TID 08/01/2017 Inactive clonazepam 1 mg tablet RxNorm: 650359 1 Tablet(s) PO Q8 as needed 07/03/2017 09/30/2017 Inactive Levaquin 500 mg tablet RxNorm: 755008 1 Tablet(s) PO daily 06/25/2017 Inactive Levaquin 500 mg tablet RxNorm: 838914 1 Tablet(s) PO daily 06/21/2017 Inactive losartan 25 mg tablet RxNorm: 293837 1 Tablet(s) PO daily 201608/16/2017 Inactive nystatin 100,000 unit/mL oral suspension RxNorm: 402356 5 Milliliter(s) PO QID Swish et swallow 06/18/2017 06/17/2017 Inactive nystatin 100,000 unit/mL oral suspension RxNorm: 496150 5 Milliliter(s) PO QID Swish et swallow 06/18/2017 06/27/2017 Inactive Cipro 500 mg tablet RxNorm: 629964 1 Tablet(s) PO BID 201606/18/2017 Inactive Cipro 500 mg tablet RxNorm: 137495 1 Tablet(s) PO BID 201606/11/2017 Inactive Toujeo SoloStar 300 unit/mL (1.5 mL) subcutaneous insulin pen RxNorm: 0358154 INJECT 10 UNITS UNDER THE SKIN DAILY 06/12/2017 08/15/2017 Inactive Keflex 500 mg capsule RxNorm: 019176 1 Capsule(s) PO TID 201606/13/2017 Inactive doxycycline hyclate 100 mg capsule RxNorm: 8045681 1 Capsule(s) PO BID 05/17/2017 05/21/2017 Inactive doxycycline hyclate 100 mg capsule RxNorm: 8892118 1 Capsule(s) PO BID 05/11/2017 05/16/2017 Inactive losartan 25 mg tablet RxNorm: 270804 1 Tablet(s) PO daily 201606/17/2017 Inactive atorvastatin 40 mg tablet RxNorm: 416839 1 Tablet(s) PO daily 03/01/2017 08/23/2017 Inactive clopidogrel 75 mg tablet RxNorm: 690587 1 Tablet(s) PO daily 08/23/2017 Inactive Flonase Allergy Relief 50 mcg/actuation nasal spray, suspension RxNorm: 1946257 2 [facility]langer NASAL daily 02/16/20172016 Inactive Augmentin 875 mg-125 mg tablet RxNorm: 620987 1 Tablet(s) PO BID 02/16/2017 02/22/2017 Inactive GET PROBIOTIC TO TAKE WHILE ON ABX Tamiflu 75 mg capsule RxNorm: 073532 1 Capsule(s) PO BID 201602/20/2017 Inactive ceftriaxone 500 mg solution for injection RxNorm: 3863746 1 Milliliter(s) Inj 02/16/2017 02/16/2017 Inactive Kenalog 40 mg/mL suspension for injection RxNorm: 6112334 1 Milliliter(s) Inj 02/16/2017 02/16/2017 Inactive Toujeo SoloStar 300 unit/mL (1.5 mL) subcutaneous insulin pen RxNorm: 6694126 25 Unit(s) SQ QAM 02/12/2017 06/10/2017 Inactive Toujeo SoloStar 300 unit/mL (1.5 mL) subcutaneous insulin pen RxNorm: 8854537 10 Unit(s) SQ QAM 02/05/2017 02/11/2017 Inactive lisinopril 10 mg tablet RxNorm: 261914 1 Tablet(s) PO daily 02/28/2017 Inactive atorvastatin 40 mg tablet RxNorm: 403936 1 Tablet(s) PO daily 02/01/2017 02/28/2017 Inactive doxycycline hyclate 100 mg capsule RxNorm: 1358925 1 Capsule(s) PO BID 02/01/2017 02/10/2017 Inactive clonazepam 1 mg tablet RxNorm: 313229 1 Tablet(s) PO Q8 as needed 10/09/2016 01/05/2017 Inactive ceftriaxone 1 gram solution for injection RxNorm: 5583406 Inj 10/06/2016 10/06/2016 Inactive cyclobenzaprine 10 mg tablet RxNorm: 980043 1/2-1 Tablet(s) PO TID PRN 07/18/2016 01/28/2017 Inactive clonazepam 1 mg tablet RxNorm: 600292 1 Tablet(s) PO Q8 as needed 05/31/2016 05/29/2016 Inactive clonazepam 1 mg tablet RxNorm: 370448 1 Tablet(s) PO Q8 as needed 05/31/2016 08/28/2016 Inactive Alyson SigalaoStar 300 unit/mL (1.5 mL) subcutaneous insulin pen RxNorm: 1912634 10 Unit(s) SQ daily 05/23/2016 01/28/2017 Inactive Crestor 10 mg tablet RxNorm: 213168 1 Tablet(s) PO QHS 201501/28/2017 Inactive Crestor 10 mg tablet RxNorm: 498048 1 Tablet(s) PO QHS 201505/18/2016 Inactive clonazepam 1 mg tablet RxNorm: 439578 1 Tablet(s) PO Q8 as needed 04/25/2016 05/30/2016 Inactive prednisone 20 mg tablet RxNorm: 326893 3 Tablet(s) PO daily 06/201602/10/2016 Inactive prednisone 20 mg tablet RxNorm: 122309 3 Tablet(s) PO daily 06/201605/14/2016 Inactive Kenalog 40 mg/mL suspension for injection RxNorm: 2121317 Milliliter(s) Inj 01/20/2016 01/20/2016 Inactive aspirin 81 mg tablet,delayed release RxNorm: 791752 1 Tablet(s) PO daily No Start Date Active Brilinta 90 mg tablet RxNorm: 8179824 1 Tablet(s) PO BID No Start Date Active acetaminophen 500 mg tablet RxNorm: 298850 1-2 Tablet(s) PO as needed No Start Date Active clopidogrel 75 mg tablet RxNorm: 754638 1 Tablet(s) PO daily No Start Date 02/28/2017 Inactive Novolog Flexpen U-100 Insulin aspart 100 unit/mL subcutaneous RxNorm: 9526426 5 units with breakfast lunch and 10 supper Unit(s) SQ No Start Date 06/17/2018 Inactive clonazepam 1 mg tablet RxNorm: 371765 1 Tablet(s) PO QHS No Start Date 04/24/2016 Inactive Coreg 6.25 mg tablet RxNorm: 768931 1 Tablet(s) PO BID No Start Date 09/29/2018 Inactive acyclovir 400 mg tablet RxNorm: 306345 2 Tablet(s) PO 5x daily No Start Date 02/28/2017 Inactive Lyrica 50 mg capsule RxNorm: 270007 Capsule(s) PO BID No Start Date 06/09/2018 Inactive Vraylar 3 mg capsule RxNorm: 9101224 1 Capsule(s) PO daily No Start Date 03/12/2018 Inactive valsartan 80 mg tablet RxNorm: 546182 1 Tablet(s) PO daily No Start Date 10/22/2018 Inactive Medication Administered Medication Codes Instructions Start Date Status ketorolac 60 mg/2 mL intramuscular solution RxNorm: 6879026 Milliliter 10/21/2018 No longer Active Kenalog 40 mg/mL suspension for injection RxNorm: 3695101 1.5Milliliter 09/30/2018 No longer Active Kenalog 40 mg/mL suspension for injection RxNorm: 4019338 Milliliter 09/11/2018 No longer Active Kenalog 40 mg/mL suspension for injection RxNorm: 4627998 Milliliter 06/28/2018 No longer Active ketorolac 30 mg/mL injection solution RxNorm: 129232 2Milliliter 05/02/2018 No longer Active ceftriaxone 500 mg solution for injection RxNorm: 0337393 1Milliliter 02/16/2017 No longer Active Kenalog 40 mg/mL suspension for injection RxNorm: 6343617 1Milliliter 02/16/2017 No longer Active ceftriaxone 1 gram solution for injection RxNorm: 4882962 10/06/2016 No longer Active Kenalog 40 mg/mL suspension for injection RxNorm: 4125027 Milliliter 01/20/2016 No longer Active Immunizations Vaccine Codes Date Status Influenza CVX: 141 07/22/2018 completed Influenza CVX: 141 08/16/2017 completed Assessments Condition Codes Effective Dates Other chest pain ICD-10: R07.89 ICD-9: 786.59 12/26/2018 Cough ICD-10: R05 ICD-9: 786.2 12/26/2018 Pneumonia due to other Gram-negative bacteria ICD-10: J15.6 ICD-9: 482.83 11/12/2018 Pain in joints of right hand ICD-10: M25.541 ICD-9: 719.44 10/24/2018 Trigger finger, right middle finger ICD-10: M65.331 [...] For Visit Effective Dates Notes chest pain/pressure 12/26/2018 cough 11/18/2018 cough 11/12/2018 [...] Item Item Code Result Date Culture Sputum 406239 LOWER RESPIRATORY TRACT CULTURE SEE NOTES 11/14/2018 Culture Sputum 610111 LOWER RESPIRATORY TRACT CULTURE SEE NOTES 10/16/2018 LIPID GRP [id number] CHOLESTEROL TNP:Duplicate Order 09/10/2018 LIPID GRP Triglyceride TNP:Duplicate Order 2017 LIPID GRP HDL CHOLESTEROL TNP:Duplicate Order 2017 LIPID GRP Chol/HDL Ratio TNP:Duplicate Order 2017 LIPID GRP LDL Cholesterol TNP:Duplicate Order 2017 A1C HPLC 3102715 Hgb A1c 91356-1 TNP:Duplicate Order 2017 C Diff An [id number] GDH TNP:Lab Request 06/22/2018 C Diff An [id number] Toxin A/B TNP:Lab Request 06/22/2018 C Diff An [id number] C Diff Analyzer TNP:Lab Request 2017 C Diff An [id number] IC OK? TNP:Lab Request 06/22/2018 CBC [id number] WBC 6.4 10e9/L 05/02/2018 CBC 2277518 RBC 5.60 10e12/L 05/02/2018 CBC 7233478 HEMOGLOBIN 17.0 g/dL 05/02/2018 CBC 5574747 HEMATOCRIT 48.0 % 05/02/2018 CBC 5233803 MCV 85.7 fL 05/02/2018 CBC 0408533 MCH 30.4 pg 05/02/2018 CBC 3273403 MCHC 35.4 g/dL 05/02/2018 CBC 2086728 PLATELET COUNT 166 10e9/L 05/02/2018 CBC 6394814 Mean Plt Volume 11.6 fL 05/02/2018 CBC 8055151 Neut Auto 48.6 % 05/02/2018 CBC 6304514 Lymph Auto 41.7 % 05/02/2018 CBC 9038427 [place] Auto 8.1 % 05/02/2018 CBC 2770857 RDW 13.1 % 05/02/2018 CBC 7298096 Eos Auto 1.1 % 05/02/2018 CBC 4567304 Baso Auto 0.5 % 05/02/2018 CBC 2742198 Neutrophil Abs 3.11 10e9/L 05/02/2018 CBC 5634659 Lymphocyte Abs 2.67 10e9/L 05/02/2018 CBC 0939802 Monocyte Abs 0.52 10e9/L 05/02/2018 CBC 4687263 Eosinophil Abs 0.07 10e9/L 05/02/2018 CBC 6794067 RDW-SD 40.0 fL 05/02/2018 CBC 8902551 Basophil Abs 0.03 10e9/L 05/02/2018 CHEM 14 0729557 AST 17 U/L 05/02/2018 CHEM 14 7115871 ALT 17 U/L 05/02/2018 CHEM 14 8899093 BUN 17 mg/dL 05/02/2018 CHEM 14 3431094 ALBUMIN 4.0 g/dL 05/02/2018 CHEM 14 3834769 CHLORIDE 97 mmol/L 05/02/2018 CHEM 14 2071147 Bili Total 0.9 mg/dL 05/02/2018 CHEM 14 7218928 ALK PHOS 67 U/L 05/02/2018 CHEM 14 5232465 SODIUM 135 mmol/L 05/02/2018 CHEM 14 7980205 CREATININE 1.18 mg/dL 05/02/2018 CHEM 14 1958714 CALCIUM 9.4 mg/dL 05/02/2018 CHEM 14 4058215 POTASSIUM 4.4 mmol/L 05/02/2018 CHEM 14 5207427 TOTAL PROTEIN 6.9 g/dL 05/02/2018 CHEM 14 7611784 GLUCOSE 316 mg/dL 05/02/2018 CHEM 14 3496677 Bicarbonate 29 mmol/L 05/02/2018 CHEM 14 6248491 AGAP 9 mmol/L 05/02/2018 MEAN GLUC 9681300 Calc Mean Gluc 283 mg/dL 05/02/2018 A1C HPLC 0387708 Hgb A1c 64749-7 11.5 % 05/02/2018 GFR CALC 6806168 GFR Non Afr Amr >60 mL/min 05/02/2018 GFR CALC 7720766 GFR Afr Amr >60 mL/min 05/02/2018 JI Gold 1950098 JIC Gold Complete 02/28/2018 GFR CALC 4490284 GFR Non Afr Amr >60 mL/min 02/28/2018 GFR CALC 4424585 GFR Afr Amr >60 mL/min 02/28/2018 UA W/CII 2560198 UA Urine Appear Normal 02/28/2018 UA W/CII 5404008 UA Protein 1+ 02/28/2018 UA W/CII 8156206 UA Hemoglobin Negative 02/28/2018 UA W/CII 6800647 UA Glucose 4+ 02/28/2018 UA W/CII 5227130 UA Ketones Trace 02/28/2018 UA W/CII 5504704 UA pH 5.5 02/28/2018 UA W/CII 8553058 U Spec [place] 1.015 02/28/2018 UA W/CII 3613098 UA Bilirubin Negative 02/28/2018 UA W/CII 8284187 UA Nitrite NEG 02/28/2018 UA W/CII 3298878 UA Leuk Esteras Negative 02/28/2018 MICR 7401785 UA WBC/hpf 1 02/28/2018 MICR 6748181 UA RBC hpf 2 02/28/2018 MICR 4815449 UA WBC auto 3.8 /uL 02/28/2018 MICR 1617159 UA RBC auto 12.2 /uL 02/28/2018 MICR 1516564 UA SQ EPI auto 2.3 /uL 02/28/2018 MICR 5112641 UA H Cast auto 0.10 /uL 02/28/2018 CBC 2294172 WBC 6.4 10e9/L 02/28/2018 CBC 5401378 RBC 5.51 10e12/L 02/28/2018 CBC 5486383 HEMOGLOBIN 16.7 g/dL 02/28/2018 CBC 4654286 HEMATOCRIT 46.9 % 02/28/2018 CBC 9545814 MCV 85.1 fL 02/28/2018 CBC 6025376 MCH 30.3 pg 02/28/2018 CBC 5070794 MCHC 35.6 g/dL 02/28/2018 CBC 3248099 PLATELET COUNT 173 10e9/L 02/28/2018 CBC 3011330 Mean Plt Volume 11.6 fL 02/28/2018 CBC 1424512 Neut Auto 51.8 % 02/28/2018 CBC 8978669 Lymph Auto 39.9 % 02/28/2018 CBC 8721509 [place] Auto 7.3 % 02/28/2018 CBC 0192131 Eos Auto 0.8 % 02/28/2018 CBC 9273782 RDW 13.3 % 02/28/2018 CBC 0540554 Baso Auto 0.2 % 02/28/2018 CBC 9647457 Neutrophil Abs 3.32 10e9/L 02/28/2018 CBC 5853704 Lymphocyte Abs 2.55 10e9/L 02/28/2018 CBC 3466505 Monocyte Abs 0.47 10e9/L 02/28/2018 CBC 0140684 Eosinophil Abs 0.05 10e9/L 02/28/2018 CBC 6628521 Basophil Abs 0.01 10e9/L 02/28/2018 CBC 8613425 RDW-SD 40.8 fL 02/28/2018 CHEM 14 20280509 AST 17 U/L 02/28/2018 CHEM 14 0606820 ALT 17 U/L 02/28/2018 CHEM 14 7103377 BUN 20 mg/dL 02/28/2018 CHEM 14 6351191 ALBUMIN 4.1 g/dL 02/28/2018 CHEM 14 8435816 CHLORIDE 97 mmol/L 02/28/2018 CHEM 14 2675448 Bili Total 1.3 mg/dL 02/28/2018 CHEM 14 8478392 ALK PHOS 78 U/L 02/28/2018 CHEM 14 7777807 SODIUM 135 mmol/L 02/28/2018 CHEM 14 1601712 CREATININE 1.09 mg/dL 02/28/2018 CHEM 14 1408085 CALCIUM 9.6 mg/dL 02/28/2018 CHEM 14 4257843 POTASSIUM 3.8 mmol/L 02/28/2018 CHEM 14 3210843 TOTAL PROTEIN 7.3 g/dL 02/28/2018 CHEM 14 4486317 GLUCOSE 349 mg/dL 02/28/2018 CHEM 14 2521348 Bicarbonate 29 mmol/L 02/28/2018 CHEM 14 5598767 AGAP 9 mmol/L 02/28/2018 [place] Spotted Fever Igg/Igm 042757 FEI MT SPOTTED FEVER IGM EIA . 09/05/2017 [place] Spotted Fever Igg/Igm 188323 RMSF, IGM 0.17 index 09/05/2017 [place] Spotted Fever Igg/Igm 764638 FEI MT SPOTTED FEVER IGG EIA FLEX . 09/05/2017 [place] Spotted Fever Igg/Igm 454618 RMSF, IGG SCREEN-FLEX Positive 09/05/2017 Fei Mtn Spot'D Fev Igg 676462 RMSF, IGG -TITER IFA <1:64 11/2016 Ehrlichia Chaffeensis Antibody Igm 413133 EHRLICHIA CHAFFEENSIS IGM < 1:16 09/03/2017 Ehrlichia Chaffeensis Antibody Igg 816631 EHRLICHIA CHAFFEENSIS IGG <1:64 09/03/2017 Lymes Disease Total Antibodies With Western Blot Reflex B. BURGDORFERI, IGG/IGM 0.223 08/30/2017 [place]ymes Disease Total Antibodies With Western Blot Reflex C-Reactive Protein Qnt Crqnt CRP 0.00 mg/dl 08/27/2017 Sed Rate Ord21 ESR 8 mm/hr 08/27/2017 Comp Metabolic Fgt222 NA 135 mEq/L 08/16/2017 Comp Metabolic Bgc777 K 4.1 mEq/L 08/16/2017 Comp Metabolic Hyi833 CL 98 mEq/L 08/16/2017 Comp Metabolic Qeq174 CO2 28.0 mEq/L 08/16/2017 Comp Metabolic Uiu808 ANION GAP 13 08/16/2017 Comp Metabolic Mgs929 GLUCOSE 299 mg/dL 08/16/2017 Comp Metabolic Pom423 Creat 0.9 mg/dL 08/16/2017 Comp Metabolic Pqs404 eGFR 90 ml/min/1.73m2 08/16/2017 Comp Metabolic Eyz085 BUN 20 mg/dL 08/16/2017 Comp Metabolic Uib180 B/C Ratio 21.5 Ratio 08/16/2017 Comp Metabolic Zpa197 CALCIUM 9.2 mg/dL 08/16/2017 Comp Metabolic Lby641 ALK PHOS 84 U/L 08/16/2017 Comp Metabolic Mtg094 AST(SGOT) 19 U/L 08/16/2017 Comp Metabolic Zdl952 ALT(SGPT) 24 U/L 08/16/2017 Comp Metabolic Zyn218 BILI T 1.1 mg/dL 08/16/2017 Comp Metabolic Xos666 ALBUMIN 4.2 g/dL 08/16/2017 Comp Metabolic Jxc648 TPRO 7.2 g/dL 08/16/2017 Comp Metabolic Ocj387 GLOB 3.0 g/dL 08/16/2017 Comp Metabolic Zpn351 A/G Ratio 1.4 Ratio 08/16/2017 Comp Metabolic Vmq514 Osmo 284 mOsmo 08/16/2017 %Hba1C Osr112 % HbA1c 39531-2 12.5 % 08/16/2017 %Hba1C Rvh853 Gluc Ave 312 mg/dL 08/16/2017 Urine Culture Ucult Complete NO Growth Day 2 06/23/2017 Urine Culture Ucult Preliminary NO Growth Day 1 06/23/2017 C RAP A SC [id number] Strep A Negative 06/08/2017 %Hba1C Lir196 % HbA1c 68653-8 9.5 % 05/04/2017 %Hba1C Izf362 Gluc Ave 226 mg/dL 05/04/2017 Tsh Ord6 [...] 31.7 pg 05/04/2017 Cbc With Differential Ord2 Finney% 8.5 % 05/04/2017 Cbc With Differential Ord2 [...] 2.48 K/ul 05/04/2017 Cbc With Differential Ord2 Finney ABS# 0.5 K/ul 05/04/2017 Cbc With Differential Ord2 Eos ABS# 0.1 K/ul 05/04/2017 Cbc With Differential Ord2 Baso ABS# 0.0 K/ul 05/04/2017 Comp Metabolic Ymv002 NA 135 mEq/L 05/04/2017 Comp Metabolic Kln866 K 4.2 mEq/L 05/04/2017 Comp Metabolic Ivg090 CL 99 mEq/L 05/04/2017 Comp Metabolic Uxo520 CO2 26.0 mEq/L 05/04/2017 Comp Metabolic Wmf812 ANION GAP 14 05/04/2017 Comp Metabolic Alf307 GLUCOSE 277 mg/dL 05/04/2017 Comp Metabolic Iuu405 Creat 0.9 mg/dL 05/04/2017 Comp Metabolic Voj906 eGFR 96 ml/min/1.73m2 05/04/2017 Comp Metabolic Ptt438 BUN 23 mg/dL 05/04/2017 Comp Metabolic Yxw024 B/C Ratio 26.1 Ratio 05/04/2017 Comp Metabolic Dcn877 CALCIUM 8.9 mg/dL 05/04/2017 Comp Metabolic Jmz121 ALK PHOS 81 U/L 05/04/2017 Comp Metabolic Ayo658 AST(SGOT) 21 U/L 05/04/2017 Comp Metabolic Oqz488 ALT(SGPT) 27 U/L 05/04/2017 Comp Metabolic Ldi555 BILI T 1.2 mg/dL 05/04/2017 Comp Metabolic Crz807 ALBUMIN 4.0 g/dL 05/04/2017 Comp Metabolic Wze686 TPRO 6.7 g/dL 05/04/2017 Comp Metabolic Eoc965 GLOB 2.7 g/dL 05/04/2017 Comp Metabolic Cak138 A/G Ratio 1.5 Ratio 05/04/2017 Comp Metabolic Lhu605 Osmo 284 mOsmo 05/04/2017 C A/B FLU [id number] Influenza A Scr Negative 02/16/2017 C A/B FLU [id number] Influenza B Scr Positive 02/16/2017 Cbc With Differential Ord2 WBC 5.22 K/ul 05/23/2016 Cbc With Differential Ord2 RBC 5.21 M/ul 05/23/2016 Cbc With Differential Ord2 HGB 15.8 g/dl 05/23/2016 Cbc With Differential Ord2 Neut% 50.3 % 05/23/2016 Cbc With Differential Ord2 HCT 45.6 % 05/23/2016 Cbc With Differential Ord2 MCV 87.5 fl 05/23/2016 Cbc With Differential Ord2 Lymph% 39.7 % 05/23/2016 Cbc With Differential Ord2 Finney% 8.8 % 05/23/2016 Cbc With Differential Ord2 [...] 2.07 K/ul 05/23/2016 Cbc With Differential Ord2 Finney ABS# 0.5 K/ul 05/23/2016 Cbc With Differential Ord2 Eos ABS# 0.1 K/ul 05/23/2016 Cbc With Differential Ord2 Baso ABS# 0.0 K/ul 05/23/2016 Lipid Ord30 CHOL 397 mg/dL 05/17/2016 Lipid Ord30 HDL 48.0 mg/dl 05/17/2016 Lipid Ord30 TRIG 578 mg/dL 05/17/2016 Lipid Ord30 LDL Unable to calculate Due to elevated triglycerides mg/dL 05/17/2016 Lipid Ord30 C/HDL 8.3 Ratio 05/17/2016 %Hba1C Fkg394 % HbA1c 83328-3 12.4 % 05/16/2016 %Hba1C Wro598 Gluc [address] 309 mg/dL 05/16/2016 Cbc With [...] 87.4 fl 05/15/2016 Cbc With Differential Ord2 Finney% 7.8 % 05/15/2016 Cbc With Differential Ord2 [...] 2.04 K/ul 05/15/2016 Cbc With Differential Ord2 Finney ABS# 0.5 K/ul 05/15/2016 Cbc With Differential Ord2 Eos ABS# 0.1 K/ul 05/15/2016 Cbc With Differential Ord2 Baso ABS# 0.0 K/ul 05/15/2016 Tsh Ord6 hTSH II 1.70 uIU/mL 05/15/2016 Comp Metabolic Okw102 NA 135 mEq/L 05/15/2016 Comp Metabolic Qzz105 K 3.9 mEq/L 05/15/2016 Comp Metabolic Ycq406 CL 96 mEq/L 05/15/2016 Comp Metabolic Aol138 CO2 27.0 mEq/L 05/15/2016 Comp Metabolic Fek553 ANION GAP 16 05/15/2016 Comp Metabolic Xyl868 GLUCOSE 183 mg/dL 05/15/2016 Comp Metabolic Ofr692 Creat 1.1 mg/dL 05/15/2016 Comp Metabolic Gwi399 eGFR 71 ml/min/1.73m2 05/15/2016 Comp Metabolic Ssb911 BUN 17 mg/dL 05/15/2016 Comp Metabolic Fnf028 B/C Ratio 14.9 Ratio 05/15/2016 Comp Metabolic Zft863 CALCIUM 9.6 mg/dL 05/15/2016 Comp Metabolic Yub724 ALK PHOS 100 U/L 05/15/2016 Comp Metabolic Asi205 AST(SGOT) 20 U/L 05/15/2016 Comp Metabolic Zgk697 ALT(SGPT) 20 U/L 05/15/2016 Comp Metabolic War314 BILI T 1.3 mg/dL 05/15/2016 Comp Metabolic Zrs752 ALBUMIN 4.6 g/dL 05/15/2016 Comp Metabolic Jhh249 TPRO 8.1 g/dL 05/15/2016 Comp Metabolic Cvf070 GLOB 3.5 g/dL 05/15/2016 Comp Metabolic Knm996 A/G Ratio 1.3 Ratio 05/15/2016 Comp Metabolic Hzp309 Osmo 276 mOsmo 05/15/2016 Review of Systems System Result Effective Dates Constitutional No recent illness 2018 Constitutional No [...] 1995 Constitutional general appearance Overall: well developed 12/26/2018 [...] lips 12/26/2018 None Full Exam - General 1995 Ears/Nose/Throat [...] clear 07/22/2018 None Full Exam - General 1995 Ears/Nose/Throat otoscopic exam Overall: tympanic membranes clear 07/22/2018 None Full Exam - General 1995 Ears/Nose/Throat [...] General 1995 Ears/Nose/Throat lips/teeth/gingiva Overall: benign lips 07/16/2018 None [...] of skin Location: face 05/04/2017 patch left worship Full Exam - General 1994 Constitutional general [...] accomodation 07/18/2016 None Full Exam - General 1995 Ears/Nose/Throat [...] CPT-4: J3301 09/30/2018 THER/PROPH/DIAG INJ SC/IM CPT-4: 55739 09/11/2018 TRIAMCINOLONE ACET INJ NOS CPT-4: J3301 09/11/2018 IMMUNIZATION ADMIN CPT -4: 74750 07/22/2018 FLU VAC NO PRSV 4 MENA 3 YRS+ CPT-4: 83487 07/22/2018 TRIAMCINOLONE ACET INJ NOS CPT-4: J3301 06/28/2018 KETOROLAC TROMETHAMINE INJ CPT-4: J1885 05/02/2018 FLU VAC NO PRSV 4 MENA 3 YRS+ CPT-4: 14230 08/16/2017 IMMUNIZATION ADMIN CPT -4: 02898 08/16/2017 URINALYSIS NONAUTO W/O SCOPE CPT-4: 16081 06/21/2017 TRIAMCINOLONE ACET INJ NOS CPT-4: J3301 05/04/2017 THER/PROPH/DIAG INJ SC/IM CPT-4: 34793 05/04/2017 TRIAMCINOLONE ACET INJ NOS CPT-4: J3301 02/16/2017 ROCEPHIN, PER 250 MG CPT-4: J0696 02/16/2017 ROCEPHIN, PER 250 MG CPT-4: J0696 10/06/2016 URINALYSIS NONAUTO W/O SCOPE CPT-4: 98609 07/18/2016 TRIAMCINOLONE ACET INJ NOS CPT-4: J3301 01/20/2016 Vital Signs Date Vital 12/26/2018 Blood Pressure 1: 118/72 Code : 8480-6 BMI: 34.4 Code : 22727-0 Heart Rate 1 : 82 bpm Height: 6'2" SpO2: 98% Temperature: 36.6 (C) / 97.9 (F) Weight: 268 lbs 11/18/2018 Blood Pressure 1: 120/84 Code : 8480-6 BMI: 33.9 Code : 42803-7 Heart Rate 1 : 77 bpm Height: 6'2" SpO2: 99% Temperature: 36.7 (C) / 98.1 (F) Weight: 264 lbs 11/12/2018 Blood Pressure 1: 138/76 Code : 8480-6 BMI: 33.9 Code : 77923-0 Heart Rate 1 : 91 bpm Height: 6'2" SpO2: 99% Weight: 264 lbs 10/30/2018 Blood Pressure 1: 130/72 Code : 8480-6 BMI: 33.3 Code : 40463-5 Heart Rate 1 : 83 bpm Height: 6'2" SpO2: 95% Temperature: 36.5 (C) / 97.7 (F) Weight: 259 lbs 10/24/2018 Blood Pressure 1: 130/70 Code : 8480-6 Heart Rate 1: 95 bpm Height: 6'2" SpO2: 96% 10/23/2018 Blood Pressure 1: 100/70 Code : 8480-6 Blood Pressure 2: 102/70 Code: 8480-6 BMI: 33.3 Code: 77624-7 Heart Rate 1: 106 bpm Height: 6'2" SpO2: 98% Weight: 259 lbs 10/21/2018 Blood Pressure 1: 140/90 Code : 8480-6 BMI: 32.9 Code : 36013-1 Heart Rate 1 : 96 bpm Height: 6'2" SpO2: 92% Weight: 256 lbs 10/17/2018 Blood Pressure 1: 110/68 Code : 8480-6 BMI: 32.9 Code : 53800-4 Heart Rate 1 : 82 bpm Height: 6'2" SpO2: 97% Weight: 256 lbs 10/14/2018 Blood Pressure 1: 124/70 Code : 8480-6 BMI: 33.6 Code : 71908-0 Heart Rate 1 : 76 bpm Height: 6'2" SpO2: 99% Temperature: 36.3 (C) / 97.3 (F) Weight: 262 lbs 09/30/2018 Blood Pressure 1: 138/82 Code : 8480-6 BMI: 33.6 Code : 49872-0 Heart Rate 1 : 82 bpm Height: 6'2" SpO2: 98% Temperature: 36.3 (C) / 97.3 (F) Weight: 262 lbs 09/09/2018 Blood Pressure 1: 140/80 Code : 8480-6 BMI: 33.0 Code : 34128-1 Heart Rate 1 : 97 bpm Height: 6'2" SpO2: 93% Temperature: 36.8 (C) / 98.2 (F) Weight: 257 lbs 07/22/2018 Blood Pressure 1: 120/78 Code : 8480-6 BMI: 31.6 Code : 20536-7 Heart Rate 1 : 87 bpm Height: 6'2" SpO2: 98% Weight: 246 lbs 07/16/2018 Blood Pressure 1: 132/74 Code : 8480-6 BMI: 31.2 Code : 46576-0 Heart Rate 1 : 90 bpm Height: 6'2" SpO2: 96% Weight: 243 lbs 07/01/2018 Blood Pressure 1: 142/82 Code : 8480-6 BMI: 31.8 Code : 14395-5 Heart Rate 1 : 88 bpm Height: 6'2" SpO2: 98% Weight: 248 lbs 06/28/2018 Blood Pressure 1: 132/76 Code : 8480-6 BMI: 31.8 Code : 39330-5 Heart Rate 1 : 107 bpm Height: 6'2" SpO2: 98% Temperature: 37.9 (C) / 100.3 (F) Weight: 248 lbs 06/18/2018 Blood Pressure 1: 138/82 Code : 8480-6 BMI: 31.8 Code : 77336-3 Heart Rate 1 : 82 bpm Height: 6'2" SpO2: 97% Weight: 248 lbs 06/04/2018 Blood Pressure 1: 128/84 Code : 8480-6 BMI: 33.9 Code : 89752-8 Heart Rate 1 : 86 bpm Height: 6'2" SpO2: 95% Weight: 264 lbs 05/13/2018 Blood Pressure 1: 130/80 Code : 8480-6 BMI: 31.1 Code : 14768-5 Heart Rate 1 : 100 bpm Height: 6'2" SpO2: 94% Weight: 242 lbs 05/02/2018 Blood Pressure 1: 134/84 Code : 8480-6 BMI: 31.2 Code : 97596-8 Heart Rate 1 : 93 bpm Height: 6'2" SpO2: 98% Weight: 243 lbs 04/29/2018 Blood Pressure 1: 142/88 Code : 8480-6 BMI: 31.6 Code : 49381-6 Heart Rate 1 : 96 bpm Height: 6'2" SpO2: 96% Temperature: 36.7 (C) / 98.1 (F) Weight: 246 lbs 03/13/2018 Blood Pressure 1: 120/76 Code : 8480-6 BMI: 30.9 Code : 92910-7 Heart Rate 1 : 112 bpm Height: 6'2" SpO2: 97% Weight: 241 lbs 03/07/2018 Blood Pressure 1: 108/78 Code : 8480-6 BMI: 30.0 Code : 55394-7 Heart Rate 1 : 87 bpm Height: 6'2" SpO2: 98% Weight: 234 lbs 02/28/2018 Blood Pressure 1: 106/74 Code : 8480-6 BMI: 30.0 Code : 12745-7 Heart Rate 1 : 101 bpm Height: 6'2" SpO2: 98% Temperature: 36.4 (C) / 97.5 (F) Weight: 234 lbs 02/13/2018 Blood Pressure 1: 110/78 Code : 8480-6 BMI: 30.0 Code : 37005-2 Heart Rate 1 : 106 bpm Height: 6'2" SpO2: 98% Weight: 234 lbs 01/29/2018 Blood Pressure 1: 106/68 Code : 8480-6 BMI: 30.0 Code : 91204-4 Heart Rate 1 : 108 bpm Height: 6'2" SpO2: 98% Weight: 234 lbs 08/27/2017 Blood Pressure 1: 134/76 Code : 8480-6 Heart Rate 1: 98 bpm Height: SpO2: 97% Weight: 08/16/2017 Blood Pressure 1: 128/80 Code : 8480-6 BMI: 32.0 Code : 49928-5 Heart Rate 1 : 94 bpm Height: [...] Code : 8480-6 BMI: 31.8 Code : 65813-2 Heart Rate 1 : 102 bpm Height: [...] Code : 8480-6 BMI: 31.8 Code : 14198-2 Heart Rate 1 : 85 bpm Height: 6'2" SpO2: 96% Temperature: 36.6 (C) / 97.9 (F) Weight: 248 lbs 02/12/2017 Blood Pressure 1: 126/76 Code : 8480-6 BMI: 31.8 Code : 43133-6 Heart Rate 1 : 106 bpm Height: 6'2" SpO2: 91% Weight: 248 lbs 02/05/2017 Blood Pressure 1: 146/86 Code : 8480-6 BMI: 31.9 Code : 18247-0 Heart Rate 1 : 98 bpm Height: 6'2" SpO2: 87% Temperature: 36.7 (C) / 98.0 (F) Weight: 248 lbs 8 oz 01/29/2017 Blood Pressure 1: 132/84 Code : 8480-6 BMI: 31.8 Code : 05636-5 Heart Rate 1 : 83 bpm Height: 6'2" SpO2: 97% Weight: 248 lbs 10/13/2016 Blood Pressure 1: 128/72 Code : 8480-6 Heart Rate 1: 86 bpm SpO2: 94% 10/09/2016 Blood Pressure 1: 128/68 Code : 8480-6 Heart Rate 1: 136 bpm SpO2: 94% Temperature: 36.8 (C) / 98.2 (F) 10/06/2016 Blood Pressure 1: 140/80 Code : 8480-6 BMI: 32.1 Code : 93479-0 Heart Rate 1 : 94 bpm Height: 6'2" SpO2: 95% Weight: 250 lbs 07/18/2016 Blood Pressure 1: 128/86 Code : 8480-6 BMI: 32.1 Code : 91254-4 Heart Rate 1 : 89 bpm Height: 6'2" SpO2: 96% Weight: 250 lbs 06/22/2016 Blood Pressure 1: 118/70 Code : 8480-6 BMI: 32.1 Code : 08125-4 Heart Rate 1 : 70 bpm Height: 6'2" SpO2: 97% Weight: 250 lbs 05/23/2016 Blood Pressure 1: 128/80 Code : 8480-6 BMI: 32.1 Code : 32149-0 Heart Rate 1 : 76 bpm Height: 6'2" SpO2: 98% Weight: 250 lbs 05/15/2016 Blood Pressure 1: 110/90 Code : 8480-6 BMI: 31.3 Code : 68361-8 Heart Rate 1 : 111 bpm Height: 6'2" SpO2: 97% Temperature: 36.6 (C) / 97.8 (F) Weight: 244 lbs 01/20/2016 Blood Pressure 1: 128/76 Code : 8480-6 BMI: 33.0 Code : 89734-8 Heart Rate 1 : 103 bpm Height: 6'2" SpO2: 95% Weight: 257 lbs Functional Status No Functional Status data History of Present Illness Symptom Name Status Result Effective Date Notes Location on the left side of on [...] Date EST. PATIENT, LEVEL III Diagnosis: Other chest pain[ICD10: R07.89] Diagnosis: Cough[ICD10: R05] [facility] CPT-4: 91405 12/26/2018 ([id number]) 40145 EST. PATIENT, LEVEL III Diagnosis: Cough[ICD10: R05] [facility] CPT-4: 04286 11/18/2018 ([id number]) 39946 EST. PATIENT, LEVEL III Diagnosis: Cough[ICD10: R05] Diagnosis: Pneumonia due to other Gram-negative bacteria[ICD10: J15.6] Marcela Ha MD, [facility] CPT-4: 13170 11/12/2018 ([id number]) 95993 EST. PATIENT, LEVEL III Diagnosis: Pneumonia due to other Gram-negative bacteria[ICD10: J15.6] Diagnosis: Cough[ICD10: R05] Melida Ha MD, [facility] CPT-4: 75329 10/30/2018 ([id number]) 62824 EST. PATIENT, LEVEL II Diagnosis: Pain in joints of right hand[ICD10: M25.541] Diagnosis: Trigger finger, right middle finger[ICD10: M65.331] Marcela Ha MD, [facility] CPT-4: 40510 10/24/2018 ([id number]) 83931 EST. PATIENT, LEVEL IV Diagnosis: Essential (primary) hypertension[ICD10: I10] Diagnosis: Type 2 diabetes mellitus with foot ulcer[ICD10: E11.621] Melida Ha MD, [facility] CPT-4: 39733 10/23/2018 ([id number]) 90144 EST. PATIENT, LEVEL III Diagnosis: Cellulitis of right finger[ICD10: L03.011] Diagnosis: Type 2 diabetes mellitus with foot ulcer[ICD10: E11.621] Diagnosis: Pain in right hand[ICD10: M79.641] Melida Ha MD, [facility] CPT-4: 09155 10/21/2018 60989 EST. PATIENT, LEVEL III Diagnosis: Spontaneous ecchymoses[ICD10: R23.3] Diagnosis: Cellulitis of right lower limb[ICD10: L03.115] Diagnosis: Cellulitis of left lower limb[ICD10: L03.116] Madeline Ha MD, [facility] CPT-4: 39249 10/17/2018 ([id number]) 33219 EST. PATIENT, LEVEL III Diagnosis: Cough[ICD10: R05] Diagnosis: Acute bronchitis, unspecified[ICD10: J20.9] Melida Ha MD, [facility] CPT-4: 90129 10/14/2018 51384 EST. PATIENT, LEVEL III Diagnosis: Acute laryngopharyngitis[ICD10: J06.0] Diagnosis: Cough[ICD10: R05] Madeline Ha MD, [facility] CPT-4: 13824 09/30/2018 ([id number]) 09118 EST. PATIENT, LEVEL III Diagnosis: Acute recurrent maxillary sinusitis[ICD10: J01.01] Diagnosis: Cough[ICD10: R05] Diagnosis: Type 2 diabetes mellitus with hyperglycemia[ICD10: E11.65] Marcela Ha MD, [facility] CPT-4: 61765 09/09/2018 ([id number]) 28155 EST. PATIENT, LEVEL IV Diagnosis: Essential (primary) hypertension[ICD10: I10] Diagnosis: Mixed hyperlipidemia[ICD10: E78.2] Diagnosis: Bipolar disorder, current episode depressed, moderate[ICD10: F31.32] Diagnosis: Type 2 diabetes mellitus with other specified complication[ICD10: E11.69] Melida Ha MD, [facility] CPT-4: 01135 2017 ([id number]) 82704 EST. PATIENT, LEVEL III Diagnosis: Insomnia due to medical condition[ICD10: G47.01] Marcela Ha MD, [facility] CPT-4: 34899 07/16/2018 ([id number]) Miscellaneous no charge Diagnosis: Cough[ICD10: R05] Madeline Ha MD, [facility] CPT-4: 45233 07/01/2018 [id number] EST. PATIENT, LEVEL III Diagnosis: Cough[ICD10: R05] Diagnosis: Acute laryngopharyngitis[ICD10: J06.0] Diagnosis: Other allergic rhinitis[ICD10: J30.89] Madeline Ha MD, [facility] CPT-4: 31674 06/28/2018 ([id number]) 93847 EST. PATIENT, LEVEL IV Diagnosis: Type 2 diabetes mellitus with hyperglycemia[ICD10: E11.65] Diagnosis: Essential (primary) hypertension[ICD10: I10] Melida Ha MD, [facility] CPT-4: 28535 06/18/2018 ([id number]) 82398 EST. PATIENT, LEVEL IV Diagnosis: Type 2 diabetes mellitus with hyperglycemia[ICD10: E11.65] Diagnosis: Essential (primary) hypertension[ICD10: I10] Diagnosis: Localized edema[ICD10: R60.0] Melida Ha MD, [facility] CPT- 4: 45595 06/04/2018 ([id number]) 02299 EST. PATIENT, LEVEL III Diagnosis: Type 2 diabetes mellitus with hyperglycemia[ICD10: E11.65] Diagnosis: Myalgia[ICD10: M79.1] Diagnosis: Pain in right hip[ICD10: M25.551] Diagnosis: Pain in left hip[ICD10: M25.552] Marcela Ha MD, [facility] CPT-4: 71381 05/13/2018 ([id number]) 85451 EST. PATIENT, LEVEL III Diagnosis: Myalgia[ICD10: M79.1] Diagnosis: Pain in right hip[ICD10: M25.551] Diagnosis: Pain in left hip[ICD10: M25.552] Marcela Ha MD, [facility] CPT-4: 81727 05/02/2018 ([id number]) 45469 EST. PATIENT, LEVEL IV Diagnosis: Essential (primary) hypertension[ICD10: I10] Diagnosis: Type 2 diabetes mellitus with hyperglycemia[ICD10: E11.65] Diagnosis: Major depressive disorder, single episode, moderate[ICD10: F32.1] Diagnosis: Myalgia[ICD10: M79.1] Marcela Ha MD, [facility] CPT-4: 02535 04/29/2018 ([id number]) 90853 EST. PATIENT, LEVEL IV Diagnosis: Type 2 diabetes mellitus with hyperglycemia[ICD10: E11.65] Diagnosis: Essential (primary) hypertension[ICD10: I10] Diagnosis: Major depressive disorder, single episode, moderate[ICD10: F32.1] Melida Ha MD, [facility] CPT-4: 86885 03/13/2018 ([id number]) 03917 EST. PATIENT, LEVEL III Diagnosis: Type 2 diabetes mellitus with hyperglycemia[ICD10: E11.65] Diagnosis: Bipolar disorder, current episode depressed, moderate[ICD10: F31.32] Diagnosis: Orthostatic hypotension[ICD10: I95.1] Marcela Ha MD, [facility] CPT-4: 60643 03/07/2018 ([id number]) 37230 EST. PATIENT, LEVEL IV Diagnosis: Type 2 diabetes mellitus with hyperglycemia[ICD10: E11.65] Diagnosis: Major depressive disorder, single episode, moderate[ICD10: F32.1] Diagnosis: Orthostatic hypotension[ICD10: I95.1] Diagnosis: Other fatigue[ICD10: R53.83] Marcela Ha MD, [facility] CPT-4: 96164 02/28/2018 32073 EST. PATIENT, LEVEL IV Diagnosis: Other fatigue[ICD10: R53.83] Diagnosis: Other malaise[ICD10: R53.81] Diagnosis: Gastro-esophageal reflux disease without esophagitis[ICD10: K21.9] Madeline Ha MD, [facility] CPT-4: 50438 02/13/2018 ([id number]) 80690 EST. PATIENT, LEVEL IV Diagnosis: Type 2 diabetes mellitus with foot ulcer[ICD10: E11.621] Diagnosis: Essential (primary) hypertension[ICD10: I10] Diagnosis: Gastro-esophageal reflux disease without esophagitis[ICD10: K21.9] Marcela Ha MD, [facility] CPT-4: 50438 01/29/2018 12747 EST. PATIENT, LEVEL III Diagnosis: Other malaise[ICD10: R53.81] Diagnosis: Other fatigue[ICD10: R53.83] Diagnosis: Pain in right shoulder[ICD10: M25.511] Diagnosis: Pain in left shoulder[ICD10: M25.512] Madeline Ha MD, [facility] CPT-4: 53015 08/27/2017 ([id number]) 01124 EST. PATIENT, LEVEL IV Diagnosis: Essential (primary) hypertension[ICD10: I10] Diagnosis: Type 2 diabetes mellitus with hyperglycemia[ICD10: E11.65] Diagnosis: VACCIN FOR INFLUENZA[ICD10: Z23] Melida Ha MD, [facility] CPT-4: 57451 08/16/2017 60439 EST. PATIENT, LEVEL III Diagnosis: Zoster without complications[ICD10: B02.9] Madeline Ha MD, [facility] CPT-4: 10603 07/26/2017 ([id number]) 42505 EST. PATIENT, LEVEL III Diagnosis: Cellulitis of right lower limb[ICD10: L03.115] Marcela Ha MD, [facility] CPT-4: 49549 07/03/2017 13669 EST. PATIENT, LEVEL II Diagnosis: Laceration without foreign body of left forearm, initial encounter[ ICD10: S51.812A] Marcela Ha MD [facility] CPT-4: 34200 06/29/2017 ([id number]) 00387 EST. PATIENT, LEVEL III Diagnosis: Cellulitis of right lower limb[ICD10: L03.115] Diagnosis: Type 2 diabetes mellitus with foot ulcer[ICD10: E11.621] Marcela Ha MD [facility] CPT-4: 00380 06/18/2017 ([id number]) 41794 EST. PATIENT, LEVEL IV Diagnosis: Cellulitis of right lower limb[ICD10: L03.115] Diagnosis: Acute laryngopharyngitis[ICD10: J06.0] Diagnosis: Gastro-esophageal reflux disease without esophagitis[ICD10: K21.9] Marcela Ha MD [facility] CPT-4: 09200 06/07/2017 ([id number]) 77337 EST. PATIENT, LEVEL III Diagnosis: Type 2 diabetes mellitus with hyperglycemia[ICD10: E11.65] Diagnosis: Insect bite (nonvenomous) of abdominal wall, initial encounter[ICD10 : S30.861A] Marcela Ha MD [facility] CPT-4: 77620 05/17/2017 ([id number]) 63087 EST. PATIENT, LEVEL III Diagnosis: Allergic contact dermatitis due to plants, except food[ICD10: L23.7] Melida Ha MD [facility] CPT-4: 96480 05/04/2017 ([id number]) 04151 EST. PATIENT, LEVEL III Diagnosis: Essential (primary) hypertension[ICD10: I10] Marcela Ha MD [facility] CPT-4: 29786 03/15/2017 ([id number]) 16102 EST. PATIENT, LEVEL III Diagnosis: Cough[ICD10: R05] Diagnosis: Essential (primary) hypertension[ICD10: I10] Marcela Ha MD [facility] CPT-4: 40316 03/01/2017 ([id number]) 97757 EST. PATIENT, LEVEL III Diagnosis: Cough[ICD10: R05] Diagnosis: Nasal congestion[ICD10: R09.81] Diagnosis: Acute recurrent maxillary sinusitis[ICD10: J01.01] Marcela Ha MD [facility] CPT-4: 88069 02/16/2017 ([id number]) 93469 EST. PATIENT, LEVEL III Diagnosis: Type 2 diabetes mellitus with hyperglycemia[ICD10: E11.65] Marcela Ha MD [facility] CPT-4: 38558 02/12/2017 ([id number]) 36164 EST. PATIENT, LEVEL IV Diagnosis: Type 2 diabetes mellitus with hyperglycemia[ICD10: E11.65] Diagnosis: Muscle weakness (generalized)[ICD10: M62.81] Diagnosis: Disorientation, unspecified[ICD10: R41.0] Marcela Ha MD [facility] CPT-4: 87741 02/05/2017 ([id number]) Patient admitted to the hospital from clinic (NO CHARGE) Diagnosis: Type 2 diabetes mellitus with hyperglycemia[ICD10: E11.65] Diagnosis: Disorientation, unspecified[ICD10: R41.0] Diagnosis: Muscle weakness (generalized)[ICD10: M62.81] Marcela Ha MD, [facility] CPT-4: 65940T 01/29/2017 ([id number]) Miscellaneous no charge Diagnosis: Cellulitis of right lower limb[ICD10: L03.115] Marcela Ha MD, [facility] CPT-4: 55407 10/13/2016 ([id number]) Miscellaneous no charge Diagnosis: Type 2 diabetes mellitus with foot ulcer[ICD10: E11.621] Diagnosis: Pain in right foot[ICD10: M79.671] Marcela Ha MD, [facility] CPT-4: 70984 10/09/2016 84630 EST. PATIENT, LEVEL II Diagnosis: Cellulitis of right lower limb[ICD10: L03.115] Marcela Ha MD [facility] CPT-4: 49401 10/06/2016 ([id number]) 36001 EST. PATIENT, LEVEL IV Diagnosis: Low back pain[ICD10: M54.5] Diagnosis: Other deformities of toe(s) (acquired), left foot[ICD10: M20.5X2] Diagnosis: Type 2 diabetes mellitus with foot ulcer[ICD10: E11.621] Marcela Ha MD , [facility] CPT-4: 02690 07/18/2016 ([id number]) 49419 EST. PATIENT, LEVEL III Diagnosis: Type 2 diabetes mellitus with hyperglycemia[ICD10: E11.65] Marcela Ha MD, [facility] CPT-4: 73622 06/22/2016 ([id number]) 67986 EST. PATIENT, LEVEL IV Diagnosis: Type 2 diabetes mellitus with hyperglycemia[ICD10: E11.65] Diagnosis: Mixed hyperlipidemia[ICD10: E78.2] Diagnosis: Other hemoglobinopathies[ICD10: D58.2] Marcela Ha MD, [facility] CPT-4: 92239 05/23/2016 ([id number]) 87554 EST. PATIENT, LEVEL IV Diagnosis: Type 2 diabetes mellitus with other specified complication[ICD10: E11.69] Diagnosis: Dehydration[ICD10: E86.0] Marcela Ha MD, [facility] CPT-4: 14424 05/15/2016 ([id number]) OFFICE VISIT, NEW - LEVEL 3 Diagnosis: Allergic contact dermatitis due to plants, except food[ICD10: L23.7] Madeline Ha MD, [facility] CPT-4: 88242 01/20/2016 Plan of Care Planned Activity Notes Codes Status Date Visit Plan: chest pain - EKG and cardiac enzymes OK - discussed with Dr. Ha - will treat for pneumonia - pt is to notify clinic if symptoms do not improve, if they worsen, or with any changes questions, or concerns. 12/26/2018 Appointment: Madeline Kennedy [facility]Ptel: [facility] ([facility] min[facility] Complex 12/26/2018 Patient Education: Patient Medication Summary Completed 12/26/2018 Referral: Andrew Cross Patient informed. Referral info faxed. Completed Visit Plan: cough - improved - continue with inhalers - continue with symbicort - rx for proair for PRN use when pt is feelign short of breath with activity. 11/18/2018 Appointment: Melida Ha WPtel: [facility] (15 min) Moderate 11/18/2018 Patient [...] of plan. 11/12/2018 Appointment: Marcela Oshea WPtel: [address] [place], [place] [phone] (30 min) Complex 11/12/2018 Patient Education: Patient Medication Summary Completed 11/12/2018 Patient Education: Symbicort - 18-64 - eCopay Completed 11/12/2018 Care Plan: Referral Order SNOMED-CT : [id number] Pending 11/12/2018 Referral: Niko Mantilla Referral Completed 11/04/2018 Visit Plan: Pneumonia, cough - recent diagnosis of Moraxella Cattharalis - with sensitivity to levaquin - will give 2 wks of levaquin since he had improvement but no full resolution of symptoms. 10/30/2018 Appointment: Melida aH WPtel: [address] [place], [place] [phone] 30 min appointments only in this slot 10/30/2018 Patient Education: Patient Medication Summary Completed 10/30/2018 Visit Plan: Right hand-joint pain and swelling -negative for gout -treated for cellulitis right 2nd mcp joint -now having difficulty with long finger "locking" -Dr Ha in to evaluate patient and tape index and long finger in place-refer to Dr Mantilla for evaluation 10/24/2018 Appointment: Marcel[facility] Oshea [facility]el[facility] [phone] [phone] (30 min) Complex 10/24/2018 Patient Education: Patient Medication Summary Completed 10/24/2018 Care Plan: Referral Order SNOMED-CT : [id number] Pending 10/24/2018 Visit Plan: Hypotension - discussed [...] less controlled. 10/23/2018 Appointment: [facility] [phone] [facility] (15 min) Moderate 10/23/2018 Patient [...] the assessment and plan. 10/21/2018 Appointment: Marcela Oshea WPtel: [phone] (30 min) Complex 10/21/2018 Patient Education: Patient [...] warmth, discharge. 10/17/2018 Appointment: Madeline Kennedy WPtel: [facility] (15 min) Moderate 10/17/2018 Patient Education: [...] acutely worsen. 10/14/2018 Appointment: Marcela Oshea WPtel: [phone] (15 min) Moderate 10/14/2018 Patient Education: Patient Medication Summary Completed 10/14/2018 Care Plan: CHEST X-RAY 2VW FRONTAL&LATL LOINC : 25269-8 Pending 10/14/2018 Visit Plan: URI - Pt [...] allergy spray. 09/30/2018 Appointment: Madeline Kennedy WPtel: [address] [place], [place] [phone] (15 min) Moderate 09/30/2018 Patient Education: Patient [...] Hgb A1C 09/09/2018 Appointment: Marcela Oshea WPtel: [address] [place], [place] [phone] (15 min) Moderate 09/09/2018 Patient Education: Patient Medication Summary Completed 09/09/2018 Patient Education: Patient Medication Summary Completed 09/06/2018 Patient Education: Cholesterol Management Completed 09/06/2018 Care Plan: Comp Metabolic Pending 09/06/2018 Care Plan: Cbc With Differential Pending 09/06/2018 Care Plan: %Hba1C LOINC : 74179-2 Pending 09/06/2018 Care Plan: Tsh Pending 09/06/2018 Care Plan: Lipid Pending 09/06/2018 Appointment: Marcela Oshea WPtel: [address] [place], [place] [phone] (15 min) Moderate 08/26/2018 Appointment: [phone] [phone] (15 min) Moderate 08/23/2018 Visit Plan: Hypertension [...] clinic. 07/22/2018 [facility]ment[phone] (15 min) Moderate 07/22/2018 Patient Education: Patient [...] time insomnia. 07/16/2018 Appointment: [facility] [phone] [phone] (30 min) Complex 07/16/2018 Patient Education: Patient Medication Summary Completed 07/16/2018 Visit Plan: cough - improved - notify clinic if symptoms do not completely resolve, or with any questions or concerns. 07/01/2018 Appointment: [phone] [facility] (15 min) Moderate 07/01/2018 Patient Education: [...] spray. 06/28/2018 Appointment: [phone] [facility] (15 min) Moderate 06/28/2018 Patient Education: Patient Medication Summary Completed 06/28/2018 Patient Education: Patient Medication Summary Completed 06/21/2018 Care Plan: Annabel BLACK Pending 06/21/2018 Visit Plan: Diabetes Mellitus - [...] home. 06/18/2018 [facility]ment[phone] [facility] (15 min) Moderate 06/18/2018 Patient [...] improves. 06/04/2018 Appointment: [phone] [facility] (15 min) Moderate 06/04/2018 Patient [...] allow for greater blood glucose control. Joint gyuv-wonqvmrm-ajgptmn- symptoms have improved -stop meloxicam due to upset stomach-call if symptoms return 05/13/2018 Appointment: Marcela Oshea WPtel: [address] [place], [place] [phone] (30 min) Complex 05/13/2018 Patient Education: Patient Medication Summary Completed 05/13/2018 Visit Plan: Bilateral hip ccsj-xuyafohf-jrtmqhv IM injection administered today for c/o continued myalgia/arthralgia. Patient to start taking Meloxicam 15mg PO daily. Advised to return to clinic if symptoms do not improve. 05/02/2018 Appointment: Marcela Oshea WPtel: [phone] (30 min) Complex 05/02/2018 Patient Education: Patient [...] readings at home. Diabetes Mellitus -check labs Bqoowkwr-aliswkh-dzlr bite-rx for doxycycline-follow up in 2 weeks 04/29/2018 Appointment: Marcela Oshea WPtel: [address] [place], [place] [phone] (15 min) Moderate 04/29/2018 Patient Education: Patient Medication Summary Completed 04/29/2018 Appointment: Melida Ha WPtel: [address] [place], [place] [phone] (15 min) Moderate 04/15/2018 Appointment: Marcela Oshea WPtel: [address] [place], [place] [phone] (30 min) Complex 03/21/2018 Visit Plan: Hypertension [...] cymbalta 03/13/2018 Appointment: [phone] [facility] (30 min) Complex 03/13/2018 Patient Education: Patient Medication Summary Completed 03/13/2018 Visit Plan: DM-continue same medications-monitor blood sugars routinely as directed -rx for new glucometer and test strips provided Bipolar-currently depressed-patient start on vraylar-follow up in 2 weeks, sooner if needed. Patient and verbalied understanding of plan. Hypotension- stay off losartan 03/07/2018 Appointment: Marcela Oshea WPtel: [phone] [phone] [place] (30 min) Complex 03/07/2018 Patient Education: Patient Medication Summary Completed 03/07/2018 Appointment: [facility]el[phone] [facility] (15 min) Moderate 03/04/2018 Visit [...] this patient. 02/28/2018 Appointment: [facility] [phone] [phone] (30 min) Complex 02/28/2018 Patient Education: [...] improving. 02/13/2018 Appointment: Mad[facility] Kennedy [facility]el[facility] [phone] [facility] (15 min) Moderate 02/13/2018 Patient Education: Patient Medication Summary Completed 02/13/2018 Referral: Sun Glynn Patient informed. Referral info faxed. Completed Visit Plan: DM-weight loss-not checking blood sugars- patient sent for labs today HTN-low vyxfk-ghubkqb-wbaju labs Callus of foot and fissue of [...] improving. 01/29/2018 Appointment: [facility]el[facility] [phone] [phone] (30 min) Complex 01/29/2018 Patient Education: Patient Medication Summary Completed 01/29/2018 Care Plan: Comp Metabolic Cancelled 01/29/2018 Care Plan: Cbc With Differential Cancelled 01/29/2018 Care Plan: %Hba1C LOINC : 88748-2 Cancelled 01/29/2018 Care Plan: Referral Order SNOMED-CT : [id number] Cancelled 01/29/2018 Visit Plan: Fatigue, malaise, joint [...] concerns. 08/27/2017 Appointment: Mad[facility] Kennedy [facility] [phone] [facility] (15 min) Moderate 08/27/2017 Patient Education: [...] - 08/16/2017 App[facility]ment: [phone] (30 min) Complex 08/16/2017 Patient Education: Patient Medication Summary Completed 08/16/2017 Patient Education: Obesity Completed 08/16/2017 Appointment: [facility] [phone] [facility] (30 min) Complex 08/07/2017 Visit Plan: [...] considered contagious. 07/26/2017 Appointment: Madeline Kennedy WPtel: [phone] (15 min) Moderate 07/26/2017 Patient Education: Patient Medication Summary Completed 07/26/2017 Visit Plan: Cellulitis right foot-cultured today in the office-home health to reapply wound vac--appt with wound care on to evaluate for debridement- 07/03/2017 Appointment: Marcela Oshea WPtel: [phone] (30 min) Complex 07/03/2017 Patient Education: Patient Medication Summary Completed 07/03/2017 Visit Plan: Abrasion left arm - Pt was instructed to keep the wound clean, wash with antibacterial soap, use triple antibiotic ointment, call if redness, pustular drainage, or any other acute concerns. 06/29/2017 Appointment: Marcela Oshea WPtel: [phone] (15 min) Moderate 06/29/2017 Patient Education: Patient [...] of plan. 06/18/2017 Appointment: Marcela Oshea WPtel: [phone] (15 min) Moderate 06/18/2017 Patient Education: Patient [...] diet-start prilosec 06/07/2017 Appointment: Marcela Oshea WPtel: [address] [place], [place] [phone] (10 min) Simple 06/07/2017 Patient Education: Patient [...] bite-continue doxycycline 05/17/2017 Appointment: Marcela Oshea WPtel: [phone] (30 min) Complex 05/17/2017 Patient Education: Patient [...] as directed- call if you want blue goo called into [facility]. 05/04/2017 Appointment: Marcela Oshea WPtel: [phone] [place] (30 min) Complex 05/04/2017 Patient Education: [...] home. Cough-resolved 03/15/2017 Appointment: Marcela Oshea WPtel: [facility] [place] [phone] (15 min) Moderate 03/15/2017 Patient Education: Patient Medication Summary Completed 03/15/2017 Appointment: Marcela Oshea WPtel: [phone] [place] [phone] (30 min) Complex 03/12/2017 Visit Plan: Feng [...] as discussed 02/16/2017 Appointment: Marcela Oshea WPtel: [phone] (15 min) Moderate 02/16/2017 Patient Education: Patient [...] less controlled. 02/12/2017 Appointment: Marcela Oshea WPtel: [phone] (30 min) Complex 02/12/2017 Patient Education: Patient Medication Summary Completed 02/12/2017 Appointment: Marcela Oshea WPtel: [phone] (30 min) Complex 02/06/2017 Visit Plan: Diabetes [...] will consider 02/05/2017 Appointment: Marcela Oshea WPtel: [phone] (30 min) Complex 02/05/2017 Patient Education: Patient Medication Summary Completed 02/05/2017 Appointment: Marcela Oshea WPtel: [phone] (30 min) Complex 01/30/2017 Visit Plan: Acute confusion-uncontrolled diabetes- chronically noncompliant with treatment and stopped his insulin several months ago-r/o stroke vs DKA-Dr Ha in to evaluate patient-plan to admit for further work up and treatment-patient's called and she transported him to the hospital 01/29/2017 Appointment: Marcela Oshea WPtel: [phone] (30 min) Complex 01/29/2017 Patient Education: Patient Medication Summary Completed 01/29/2017 Patient Education: Obesity Completed 01/29/2017 Visit Plan: Right foot pain-MRI shows foreign body-appt with Dr Grewal for evaluation on Sunday. 10/13/2016 Appointment: Marcela Oshea WPtel: [phone] [place] (15 min) Moderate 10/13/2016 Patient Education: Patient Medication Summary Completed 10/13/2016 Appointment: Marcela Oshea WPtel: [address] [place], [place] [phone] [place] (30 min) Complex 10/12/2016 Visit Plan: Right foot olra-nxzibcqf-yoqdn washer dropped on foot-xray negative but pain continues to increase-recommend MRI of foot for further evaluation-refer to wound care for lesions on right foot, patient has diabetes and history of osteomyelitis-culture obtained today-continue oral abx- follow up in the office on , sooner if needed 10/09/2016 Visit Plan: Right foot qdqp-mpzedgmj-dzrhu washer dropped on foot-xray negative but pain continues to increase-recommend MRI of foot for further evaluation-refer to wound care for lesions on right foot, patient has diabetes and history of osteomyelitis-culture obtained today-continue oral abx- follow up in the office on , sooner if needed 10/09/2016 Visit Plan: Right foot xqof-mnvfazyk-dzlgq washer dropped on foot-xray negative but pain continues to increase-recommend MRI of foot for further evaluation-refer to wound care for lesions on right foot, patient has diabetes and history of osteomyelitis-culture obtained today-continue oral abx- follow up in the office on , sooner if needed 10/09/2016 Appointment: Marcela Oshea WPtel: [address] [place], [place] [phone] [place] (30 min) Complex 10/09/2016 Patient Education: Patient Medication Summary Completed 10/09/2016 Visit Plan: Cellulitis - continue with oral antibiotics as previously directed, return to clinic as previously directed, call for acute change in symptoms, worsening redness, warmth, discharge. 10/06/2016 Appointment: Marcela Oshea WPtel: [address] [place], [place] [phone] [place] (10 min) Simple 10/06/2016 Patient Education: Patient Medication Summary Completed 10/06/2016 Appointment: Marcela Oshea WPtel: [address] [place], [place] [phone] [place] (30 min) Complex 08/24/2016 Referral: Sun Glynn Referral Completed 07/21/2016 Visit Plan: Low back pain- history of spinal fusion- patient for xray lumbar spine-RX sent to [facility] pharmacy and instructed on use-topical voltaren samples provided and instructed on use. Ok to use tylenol as needed as well. The patient is to call the office if the pain is worsening or does not improve. Pressure ulcer left 4th toe-refer to Dr Glynn for evaluation 07/18/2016 Appointment: Marcela Oshea WPtel: [phone] [phone] [place] (30 min) Complex 07/18/2016 Patient Education: Patient Medication Summary Completed 07/18/2016 Patient Education: Obesity Completed 07/18/2016 Care Plan: Referral Order SNOMED-CT : [id number] Cancelled 07/18/2016 Visit Plan: Diabetes Mellitus - [...] glucose control. 06/22/2016 Appointment: Marcela Oshea WPtel: [phone] [phone] (30 min) Complex 06/22/2016 Patient Education: Patient [...] CBC today 05/23/2016 Appointment: [phone] [phone] (30 min) Complex 05/23/2016 Patient Education: [...] plan. 05/15/2016 Appointment: Marcel[facility]Ptel[facility] [phone] [phone] (15 min) Moderate 05/15/2016 Patient Education: [...] Requested Referral: Sun Glynn Referral Initiated Referral: uSn Glynn Referral Appointment Requested Instructions Comment continue oral antibiotic start using topical antibiotic ointment to scabbed areas and cover with dressing follow up , sooner if needed refer to wound care mri left foot due to increased pain -concern for fracture from injury . Right foot ffse-zhxztzli-pdcio washer dropped on foot-xray negative but pain [...] for fracture from injury . Right foot mabl-rnivlwzm-fkcag washer dropped on foot-xray negative but pain continues to increase-recommend MRI of foot for further evaluation-refer to wound care for lesions on right foot, patient has diabetes and history of osteomyelitis-culture obtained today-continue oral abx-follow up in the office on , sooner if needed REPEAT LABS BEFORE YOUR NEXT APPOINTMENT IN [...] greater blood glucose control. Tick bite-continue doxycycline REPEAT CBC Toujeo 10 units daily . [...] not improved, or if symptoms acutely worsen. steroid shot today flonase and mucinex over [...] spray in the nasal steroid allergy spray. TOUJEO 25 UNITS DAILY. NOTIFY CLINIC IF [...] readings are starting to become less controlled. culture of right foot strep swab prilosec over the counter twice daily keflex 500mg three times daily x 7 days . Cellulitis - culture of wound today-start abx and directed, call for acute change in symptoms, worsening redness, warmth, discharge. Sore throat-strep swab-chloraseptic spray-add prilosec twice daily for acid reflux symptoms GERD-low spice, low fat diet-start prilosec . Pneumonia, cough - recent diagnosis of Moraxella Cattharalis - with sensitivity to levaquin - will give 2 wks of levaquin since he had improvement but no full resolution of symptoms. . Diabetes Mellitus - controlled - per [...] may then decrease dose as swelling improves. sputum culture chest xray levaquin 500mg daily . Bronchitis - acute case of bronchitis identified. Pt has been given antibiotics, breathing treatments as appropriate, and pt has been instructed to call if symptoms are not improved, or if symptoms acutely worsen. CT Chest sputum culture symbicort 2 puffs [...] a bronchoscopy. Patient verbalized understanding of plan. will check labs and EKG if it is negative will start you on an antibiotic -. chest pain - EKG and cardiac enzymes OK - discussed with Dr. Ha - will treat for pneumonia - pt is to notify clinic if symptoms do not improve, if they worsen, or with any changes questions, or concerns. . Fatigue, malaise, joint pains - pt states that he has been outside and in areas where he would be exposed to ticks. He states that all of his joints ache - will check labs, and treat as indicated. Pt is to notify clinic if symptoms do not improve, if they worsen, or with any changes, questions, or concerns. breathing treatments 3 times a day x [...] spray in the nasal steroid allergy spray. START CHECKING BLOOD SUGARS . Diabetes Mellitus [...] readings are starting to become less controlled. Lxpgrbbij-bnyffpqy-sxfxauof to monitor Generalized weakness-refer for PT-patient refuses today but will consider . Cellulitis right foot-cultured today in the office-home health to reapply wound vac--appt with wound care on to evaluate for debridement- . Acute confusion-uncontrolled diabetes-chronically noncompliant with treatment and stopped his insulin several months ago-r/o stroke vs DKA-Dr Ha in to evaluate patient-plan to admit for further work up and treatment-patient's called and she transported him to the hospital . Cellulitis - continue with oral antibiotics as previously directed, return to clinic as previously directed, call for acute change in symptoms, worsening redness, warmth, discharge. DOXYCYCLINE 100MG TWICE DAILY TORADOL INJECTION STOP [...] ulcer- patient to see specialist this afternoon STOP MELOXICAM CONTINUE LYRICA 50 UNITS TOUJEO [...] allow for greater blood glucose control. Joint niby-llwydscp-unefzil-symptoms have improved -stop meloxicam due to upset stomach-call if symptoms return decrease the valsartan to 1/2 pill daily [...] readings are starting to become less controlled. stop the vraylar start on cymbalta 30mg [...] stop Vraylar and start on cymbalta . Right hand-joint pain and swelling -negative for gout - treated for cellulitis right 2nd mcp joint -now having difficulty with long finger "locking" -Dr Ha in to evaluate patient and tape index and long finger in place-refer to Dr Mantilla for evaluation . Diabetes Mellitus - I have recommended [...] allow for greater blood glucose control. . Mild ecchymosis with faint erythema - pt is to continue his levaquin that was previously prescribed - The patient was instructed in appropriate wound care. The patient was instructed to use the antibiotic as per RX. The patient is to call for any change in symptoms, increase in size of the lesion, increase in pain, worsening redness, warmth, discharge. STOP LISINOPRIL DUE TO COUGH -START LOSARTAN 25MG DAILY . Feng inhibitor induced cough-stop lisinopril-start losartan as directed- monitor symptoms and follow up in 2 weeks-monitor blood pressure at home and call with any questions or concerns. Patient verbalized understanding of plan. . Poison Jana - pt is to use topical treatments as directed. Pt is cleanse clothing in hot water with soap, and call if symptoms do not improve or if they worsen. Kenalog injection today in the office-monitor blood sugars closely over the next 2-3 days-use calamine as directed-call if you want blue rosieo called into [facility]. . Hypertension - well controlled - continue with current medications, continue with no added salt diet. Pt has been encouraged to exercise daily. The pt has been advised to call the office if there are any acute concerns about change in blood pressure readings at home. Cough-resolved doxycycline 100mg twice daily follow up in 2 weeks, sooner if needed . Hypertension - well controlled - continue with current medications, continue with no added salt diet. Pt has been encouraged to exercise daily. The pt has been advised to call the office if there are any acute concerns about change in blood pressure readings at home. Diabetes Mellitus -check labs Eycabjwm-oborbrn-thgp bite-rx for doxycycline-follow up in 2 weeks . Sinusitis - Pt has acute infection [...] physical exam, and the assessment and plan. . cough - improved - notify clinic if symptoms do not completely resolve, or with any questions or concerns. culture of right foot strep swab prilosec over the counter twice daily keflex 500mg three times daily x 7 days . Cellulitis - culture of wound today-start abx and directed, call for acute change in symptoms, worsening redness, warmth, discharge. Sore throat-strep swab-chloraseptic spray-add prilosec twice daily for acid reflux symptoms GERD-low spice, low fat diet-start prilosec Stop the atorvastatin (lipitor) - start Co [...] office if the symptoms are not improving. TOUJEO 20 UNITS DAILY MONITOR BLOOD SUGARS [...] has been appropriately prescribed for this patient. xray lumbar spine flexeril as needed voltaren gel ulcer left 4th toe-refer to eggs inspector . Low back pain- history of spinal fusion-patient for xray lumbar spine-[facility] and instructed on use-topical voltaren samples [...] not resolve-start augmentin if needed as discussed INCREASE FLUIDS-RECOMMEND G2 GATORADE-CHECK LABS TODAY IF [...] any worse. Patient verbalized understanding of plan. . Abrasion left arm - Pt was instructed to keep the wound clean, wash with antibacterial soap, use triple antibiotic ointment, call if redness, pustular drainage, or any other acute concerns. continue oral antibiotic start using topical antibiotic ointment to scabbed areas and cover with dressing follow up , sooner if needed refer to wound care mri left foot due to increased pain -concern for fracture from injury . Right foot rjbb-gqyvdgqd-yldph washer dropped on foot-xray negative but pain continues to increase-recommend MRI of foot for further evaluation-refer to wound care for lesions on right foot, patient has diabetes and history of osteomyelitis-culture obtained today-continue oral abx-follow up in the office on , sooner if needed STAY OFF LOSARTAN AND CHOLESTEROL MEDICATION FOR NOW . DM- continue same medications-monitor blood sugars routinely as directed -rx for new glucometer and test strips provided Bipolar-currently depressed-patient start on vraylar-follow up in 2 weeks, sooner if needed. Patient and verbalied understanding of plan. Hypotension-stay off losartan decrease novolog to 8 units at meals. [...] Cymbalta. Flu shot given today in clinic. . Poison Jana - pt is to use topical treatments as directed. Pt is cleanse clothing in hot water with soap, and call if symptoms do not improve or if they worsen. . Bilateral hip uwqv-dlayieya-ubwhxvy IM injection administered today for c/o continued myalgia/arthralgia. Patient to start taking Meloxicam 15mg PO daily. Advised to return to clinic if symptoms do not improve. steroid shot today flonase and mucinex over [...] in the nasal steroid allergy spray. . Hypertension - well controlled - continue [...] check HgbA1c flu shot today - . Diabetes Mellitus - controlled - per [...] change in blood pressure readings at home. levaquin re-culture wound refer to wound care . Cellulitis-right foot wound-post op resection of first metatarsal head- finished one week of cipro-cultured wound again today in the office-will do levaquin daily until culture is back-dressing changes today in the office-will refer to wound care-needs dressings to help with extra moisture. Patient verbalized understanding of plan. . Shingles - Herpes Zoster - acute [...] the pt is to be considered contagious. . DM-weight loss-not checking blood sugars-patient sent for labs today HTN-low txuxj-ivjhgzu-omymh labs Callus of foot and fissue of heel-refer to Dr Glynn for evaluation Esophageal Reflux - the patient has been counseled against excessive intake of caffeine, spicy foods, peppermint, and cinnamon - all of which can exacerbate esophageal reflux. The patient is to take medications as prescribed and call the office if the symptoms are not improving. . cough - improved - continue with inhalers - continue with symbicort - rx for proair for PRN use when pt is feelign short of breath with activity. . Right foot pain-MRI shows foreign body-appt with Dr Grewal for evaluation on Sunday. CT Chest sputum culture symbicort 2 puffs [...] bronchoscopy. Patient verbalized understanding of plan. . Insomnia - Pt has been advised to increase the light in the house during the day, and start dimming the lights during the evening hours. Pt has been advised to cut out caffeine after 5pm. Daytime napping worsens night time insomnia.
[2019-01-01] MEDS ORDERED: ONDANSETRON 4 MG/2 ML (SDV) Z0FRAN IVP ONE (14:15)
--- OUTSIDE RECORDS SUMMARY | 2019-01-01 14:16 | XMS REPORT | CCD ---
Author Author Madeline Kennedy MD, [facility] Address [address] [place] [address] Phone Care Team Providers Care Supervisor Type Disk Quality Control Name Role Phone PP Unavailable CCM Unavailable Summary Purpose Interface Exchange Insurance Providers Payer name Policy type / Coverage type Covered alliance party ID Effective Begin Date Effective End Date [place] Clinical Data Commercial Insurance [id number] Unknown Family history Father Diagnosis Age At Onset Hyperlipidemia Unknown Heart Attack Unknown Mother Diagnosis Age At Onset Hypertension Unknown Social History Social History Element Codes Description Effective Dates Marital status Unknown [place] 01/20/2016 Number of children Unknown 4 01/20/2016 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/[address]: 899693983 Never smoker 01/20/[address]: 109872250 Never drinks alcohol 01/20/2016 Allergies, Adverse Reactions, [...] Instructions Augmentin 500 mg-125 mg tablet RxNorm: 535526 1 Tablet(s) PO TID 12/26/2018 01/04/2019 Active Augmentin 500 mg-125 mg tablet RxNorm: 922869 1 Tablet(s) PO TID 12/26/2018 12/25/2018 Inactive ProAir HFA 90 mcg/actuation aerosol inhaler RxNorm: 5550413 2 Puff(s) INH QID as needed 11/18/2018 No Stop Date Active Lyrica 50 mg capsule RxNorm: 221118 Capsule(s) PO daily 201802/08/2019 Active Cymbalta 30 mg capsule,delayed release RxNorm: 585528 1 Capsule(s) PO QAM 11/13/2018 06/10/2019 Active Lyrica 50 mg capsule RxNorm: 180214 Capsule(s) PO daily 201811/12/2018 Inactive Symbicort 160 mcg-4.5 mcg/actuation HFA aerosol inhaler RxNorm: 3683918 2 Puff(s) INH BID 11/12/2018 12/11/2018 Inactive albuterol sulfate 2.5 mg/3 mL (0.083 %) solution for nebulization RxNorm: 897693 3 Milliliter(s) INH UD 11/07/2018 No Stop Date Active azithromycin 500 mg tablet RxNorm: 783475 500mg on day 1 then 250 mg daily x 4 more day Tablet(s) PO 11/07/20182018 Inactive 500mg on day 1 and then 250mg daily 2-4 azithromycin 500 mg tablet RxNorm: 186617 500mg on day 1 then 250 mg daily x 4 more day Tablet(s) PO 11/07/20182018 Inactive 500mg on day 1 and then 250mg daily 2-4 cefdinir 300 mg capsule RxNorm: 007218 1 Capsule(s) PO BID 01/201911/06/2018 Inactive cefdinir 300 mg capsule RxNorm: 349785 1 Capsule(s) PO BID 01/201911/13/2018 Inactive Levaquin 500 mg tablet RxNorm: 193869 1 Tablet(s) PO daily TAKE ONE TABLET BY MOUTH DAILY UNTIL GONE 10/31/20182018 Inactive Levaquin 500 mg tablet RxNorm: 126887 1 Tablet(s) PO daily 11/12/2018 Inactive valsartan 80 mg tablet RxNorm: 366526 1/2 Tablet(s) PO daily 04/20/2019 Active doxycycline hyclate 100 mg tablet RxNorm: 3638834 1 Tablet(s) PO BID 10/21/2018 10/27/2018 Inactive ketorolac 60 mg/2 mL intramuscular solution RxNorm: 4453671 Milliliter(s) IM 10/21/2018 10/21/2018 Inactive Levaquin 500 mg tablet RxNorm: 110648 1 Tablet(s) PO daily 10/31/2018 Inactive Tessalon Perles 100 mg capsule RxNorm: 227364 1-2 Capsule(s) PO TID PRN 10/14/2018 No Stop Date Active albuterol sulfate 2.5 mg/3 mL (0.083 %) solution for nebulization RxNorm: 825959 3 Milliliter(s) INH UD 10/14/201812/2018 Inactive Levaquin 500 mg tablet RxNorm: 471197 1 Tablet(s) PO daily 08/201810/16/2018 Inactive Coreg 6.25 mg tablet RxNorm: 805759 TAKE ONE TABLET BY MOUTH TWICE A DAY 09/30/2018 03/28/2019 Active albuterol sulfate 2.5 mg/3 mL (0.083 %) solution for nebulization RxNorm: 122884 3 Milliliter(s) INH UD 09/30/201807/2018 Inactive Kenalog 40 mg/mL suspension for injection RxNorm: 0798755 1.5 Milliliter(s) Inj 09/30/2018 09/30/2018 Inactive Keflex 500 mg capsule RxNorm: 023223 1 Capsule(s) PO TID 201710/03/2018 Inactive prednisone 20 mg tablet RxNorm: 932307 2 Tablet(s) PO daily 09/29/2018 Inactive Kenalog 40 mg/mL suspension for injection RxNorm: 9615045 Milliliter(s) Inj 09/11/2018 09/11/2018 Inactive Zyrtec 10 mg tablet RxNorm: 8418719 1 Tablet(s) PO daily 09/0910/08/2018 Inactive Keflex 500 mg capsule RxNorm: 850649 1 Capsule(s) PO TID 201709/15/2018 Inactive Tresiba FlexTouch U-200 insulin 200 unit/mL (3 mL) subcutaneous pen RxNorm: 7766718 50 Unit(s) SQ daily 08/30/2018 08/29/2018 Inactive please give him 30 day supply Tresiba FlexTouch U-200 insulin 200 unit/mL (3 mL) subcutaneous pen RxNorm: 9042018 50 Unit(s) SQ daily 08/30/2018 09/28/2018 Inactive please give him 30 day supply Novolog Flexpen U-100 Insulin aspart 100 unit/mL subcutaneous RxNorm: 2606439 8 Unit(s) SQ AC 08/13/2018 No Stop Date Active Novolog Flexpen U-100 Insulin aspart 100 unit/mL subcutaneous RxNorm: 5612538 8 Unit(s) SQ AC 07/22/20182017 Inactive this is an update on his medication Novolog Flexpen U-100 Insulin aspart 100 unit/mL subcutaneous RxNorm: 6898760 12 Unit(s) SQ AC 07/05/20182017 Inactive this is an update on his medication Toujeo SoloStar U-300 Insulin 300 unit/mL (1.5 mL) subcutaneous pen RxNorm: 0008804 INJECT 50 UNITS UNDER THE SKIN DAILY 07/01/2018 08/29/2018 Inactive Mucinex 600 mg tablet, extended release RxNorm: 305812 1 Tablet(s) PO BID 06/28/2018 07/04/2018 Inactive Zofran 4 mg tablet RxNorm: 018211 1 Tablet(s) PO TID as needed nausea 06/28/2018 07/02/2018 Inactive Kenalog 40 mg/mL suspension for injection RxNorm: 4607723 Milliliter(s) Inj 06/28/2018 06/28/2018 Inactive Flonase Allergy Relief 50 mcg/actuation nasal spray, suspension RxNorm: 9502549 1 [place] NASAL BID 06/28/20182017 Inactive Lyrica 50 mg capsule RxNorm: 063367 Capsule(s) PO daily 201707/06/2018 Inactive Novolog Flexpen U-100 Insulin aspart 100 unit/mL subcutaneous RxNorm: 9123651 10 Unit(s) SQ AC 06/18/20182017 Inactive this is an update on his medication Lasix 20 mg tablet RxNorm: 045777 1 Tablet(s) PO BIW 201707/02/2018 Inactive atorvastatin 80 mg tablet RxNorm: 180954 1 Tablet(s) PO QHS 04/201812/06/2018 Inactive clonazepam 1 mg tablet RxNorm: 248761 2 Tablet(s) PO HS 201706/04/2019 Active clonazepam 1 mg tablet RxNorm: 351450 2 Tablet(s) PO HS as needed 06/10/2018 06/09/2018 Inactive Lyrica 50 mg capsule RxNorm: 419580 Capsule(s) PO daily 201707/08/2018 Inactive Lasix 20 mg tablet RxNorm: 147705 1 Tablet(s) PO TIW 201706/11/2018 Inactive Toujeo SoloStar U-300 Insulin 300 unit/mL (1.5 mL) subcutaneous pen RxNorm: 5029017 50 Unit(s) SQ daily 05/07/2018 06/30/2018 Inactive meloxicam 15 mg tablet RxNorm: 755317 15 Milligram(s) PO daily 05/02/2018 05/12/2018 Inactive ketorolac 30 mg/mL injection solution RxNorm: 430613 2 Milliliter(s) Inj 05/02/2018 05/02/2018 Inactive Toujeo SoloStar U-300 Insulin 300 unit/mL (1.5 mL) subcutaneous pen RxNorm: 9039132 45 Unit(s) daily 04/29/2018 Inactive clonazepam 1 mg tablet RxNorm: 050464 1 Tablet(s) PO Q8 as needed 04/29/2018 06/09/2018 Inactive doxycycline hyclate 100 mg tablet RxNorm: 9967458 1 Tablet(s) PO BID 04/29/2018 05/12/2018 Inactive Cymbalta 30 mg capsule,delayed release RxNorm: 600304 1 Capsule(s) PO QAM 03/13/2018 10/08/2018 Inactive Lexapro 10 mg tablet RxNorm: 597876 1 Tablet(s) PO QPM 201703/03/2018 Inactive Toujeo SoloStar U-300 Insulin 300 unit/mL (1.5 mL) subcutaneous pen RxNorm: 4482843 20 Unit(s) daily 02/28/2018 Inactive Protonix 40 mg tablet,delayed release RxNorm: 324204 1 Tablet(s) PO daily 01/29/2018 06/09/2018 Inactive clonazepam 1 mg tablet RxNorm: 968093 1 Tablet(s) PO Q8 as needed 12/12/2017 03/10/2018 Inactive Tamiflu 75 mg capsule RxNorm: 160272 1 Capsule(s) PO BID 201712/03/2017 Inactive doxycycline hyclate 100 mg capsule RxNorm: 4238022 1 Capsule(s) PO BID 09/07/2017 09/20/2017 Inactive doxycycline hyclate 100 mg capsule RxNorm: 5919685 1 Capsule(s) PO BID 08/27/2017 09/06/2017 Inactive prednisone 20 mg tablet RxNorm: 637053 2 Tablet(s) PO daily 08/31/2017 Inactive clopidogrel 75 mg tablet RxNorm: 160613 1 Tablet(s) PO daily 06/09/2018 Inactive atorvastatin 40 mg tablet RxNorm: 179123 1 Tablet(s) PO QHS 02/27/2018 Inactive losartan 25 mg tablet RxNorm: 789614 TAKE ONE TABLET BY MOUTH DAILY 08/22/2017 06/09/2018 Inactive Toujeo SoloStar 300 unit/mL (1.5 mL) subcutaneous insulin pen RxNorm: 7239677 45 Unit(s) daily 08/17/2017 08/20/2017 Inactive mupirocin 2 % topical ointment RxNorm: 137925 1 Application TOP TID to the lesions on chest 08/16/2017 08/25/2017 Inactive Toujeo SoloStar 300 unit/mL (1.5 mL) subcutaneous insulin pen RxNorm: 8038922 40 Unit(s) daily 08/16/2017 08/16/2017 Inactive valacyclovir 1 gram tablet RxNorm: 534116 1 Tablet(s) PO TID 08/01/2017 Inactive clonazepam 1 mg tablet RxNorm: 332366 1 Tablet(s) PO Q8 as needed 07/03/2017 09/30/2017 Inactive Levaquin 500 mg tablet RxNorm: 142260 1 Tablet(s) PO daily 06/25/2017 Inactive Levaquin 500 mg tablet RxNorm: 503994 1 Tablet(s) PO daily 06/21/2017 Inactive losartan 25 mg tablet RxNorm: 103060 1 Tablet(s) PO daily 201608/16/2017 Inactive nystatin 100,000 unit/mL oral suspension RxNorm: 643982 5 Milliliter(s) PO QID Swish et swallow 06/18/2017 06/17/2017 Inactive nystatin 100,000 unit/mL oral suspension RxNorm: 337168 5 Milliliter(s) PO QID Swish et swallow 06/18/2017 06/27/2017 Inactive Cipro 500 mg tablet RxNorm: 974457 1 Tablet(s) PO BID 201606/18/2017 Inactive Cipro 500 mg tablet RxNorm: 624835 1 Tablet(s) PO BID 201606/11/2017 Inactive Toujeo SoloStar 300 unit/mL (1.5 mL) subcutaneous insulin pen RxNorm: 0926803 INJECT 10 UNITS UNDER THE SKIN DAILY 06/12/2017 08/15/2017 Inactive Keflex 500 mg capsule RxNorm: 324292 1 Capsule(s) PO TID 201606/13/2017 Inactive doxycycline hyclate 100 mg capsule RxNorm: 0348084 1 Capsule(s) PO BID 05/17/2017 05/21/2017 Inactive doxycycline hyclate 100 mg capsule RxNorm: 6442151 1 Capsule(s) PO BID 05/11/2017 05/16/2017 Inactive losartan 25 mg tablet RxNorm: 535815 1 Tablet(s) PO daily 201606/17/2017 Inactive atorvastatin 40 mg tablet RxNorm: 213469 1 Tablet(s) PO daily 03/01/2017 08/23/2017 Inactive clopidogrel 75 mg tablet RxNorm: 990853 1 Tablet(s) PO daily 08/23/2017 Inactive Flonase Allergy Relief 50 mcg/actuation nasal spray, suspension RxNorm: 2732602 2 [place] NASAL daily 02/16/20172016 Inactive Augmentin 875 mg-125 mg tablet RxNorm: 506464 1 Tablet(s) PO BID 02/16/2017 02/22/2017 Inactive GET PROBIOTIC TO TAKE WHILE ON ABX Tamiflu 75 mg capsule RxNorm: 487201 1 Capsule(s) PO BID 201602/20/2017 Inactive ceftriaxone 500 mg solution for injection RxNorm: 4896596 1 Milliliter(s) Inj 02/16/2017 02/16/2017 Inactive Kenalog 40 mg/mL suspension for injection RxNorm: 7713861 1 Milliliter(s) Inj 02/16/2017 02/16/2017 Inactive Toujeo SoloStar 300 unit/mL (1.5 mL) subcutaneous insulin pen RxNorm: 2097457 25 Unit(s) SQ QAM 02/12/2017 06/10/2017 Inactive Toujeo SoloStar 300 unit/mL (1.5 mL) subcutaneous insulin pen RxNorm: 6066585 10 Unit(s) SQ QAM 02/05/2017 02/11/2017 Inactive lisinopril 10 mg tablet RxNorm: 379073 1 Tablet(s) PO daily 02/28/2017 Inactive atorvastatin 40 mg tablet RxNorm: 736829 1 Tablet(s) PO daily 02/01/2017 02/28/2017 Inactive doxycycline hyclate 100 mg capsule RxNorm: 5073512 1 Capsule(s) PO BID 02/01/2017 02/10/2017 Inactive clonazepam 1 mg tablet RxNorm: 579431 1 Tablet(s) PO Q8 as needed 10/09/2016 01/05/2017 Inactive ceftriaxone 1 gram solution for injection RxNorm: 6642568 Inj 10/06/2016 10/06/2016 Inactive cyclobenzaprine 10 mg tablet RxNorm: 755911 1/2-1 Tablet(s) PO TID PRN 07/18/2016 01/28/2017 Inactive clonazepam 1 mg tablet RxNorm: 412693 1 Tablet(s) PO Q8 as needed 05/31/2016 05/29/2016 Inactive clonazepam 1 mg tablet RxNorm: 772661 1 Tablet(s) PO Q8 as needed 05/31/2016 08/28/2016 Inactive Alyson SigalaoStar 300 unit/mL (1.5 mL) subcutaneous insulin pen RxNorm: 0767280 10 Unit(s) SQ daily 05/23/2016 01/28/2017 Inactive Crestor 10 mg tablet RxNorm: 807502 1 Tablet(s) PO QHS 201501/28/2017 Inactive Crestor 10 mg tablet RxNorm: 193056 1 Tablet(s) PO QHS 201505/18/2016 Inactive clonazepam 1 mg tablet RxNorm: 118920 1 Tablet(s) PO Q8 as needed 04/25/2016 05/30/2016 Inactive prednisone 20 mg tablet RxNorm: 335163 3 Tablet(s) PO daily 06/201602/10/2016 Inactive prednisone 20 mg tablet RxNorm: 282766 3 Tablet(s) PO daily 06/201605/14/2016 Inactive Kenalog 40 mg/mL suspension for injection RxNorm: 8194457 Milliliter(s) Inj 01/20/2016 01/20/2016 Inactive aspirin 81 mg tablet,delayed release RxNorm: 644326 1 Tablet(s) PO daily No Start Date Active Brilinta 90 mg tablet RxNorm: 3513881 1 Tablet(s) PO BID No Start Date Active acetaminophen 500 mg tablet RxNorm: 173748 1-2 Tablet(s) PO as needed No Start Date Active clopidogrel 75 mg tablet RxNorm: 468923 1 Tablet(s) PO daily No Start Date 02/28/2017 Inactive Novolog Flexpen U-100 Insulin aspart 100 unit/mL subcutaneous RxNorm: 2701203 5 units with breakfast lunch and 10 supper Unit(s) SQ No Start Date 06/17/2018 Inactive clonazepam 1 mg tablet RxNorm: 068038 1 Tablet(s) PO QHS No Start Date 04/24/2016 Inactive Coreg 6.25 mg tablet RxNorm: 545911 1 Tablet(s) PO BID No Start Date 09/29/2018 Inactive acyclovir 400 mg tablet RxNorm: 045201 2 Tablet(s) PO 5x daily No Start Date 02/28/2017 Inactive Lyrica 50 mg capsule RxNorm: 554576 Capsule(s) PO BID No Start Date 06/09/2018 Inactive Vraylar 3 mg capsule RxNorm: 1445033 1 Capsule(s) PO daily No Start Date 03/12/2018 Inactive valsartan 80 mg tablet RxNorm: 088099 1 Tablet(s) PO daily No Start Date 10/22/2018 Inactive Medication Administered Medication Codes Instructions Start Date Status ketorolac 60 mg/2 mL intramuscular solution RxNorm: 1486793 Milliliter 10/21/2018 No longer Active Kenalog 40 mg/mL suspension for injection RxNorm: 9711196 1.5Milliliter 09/30/2018 No longer Active Kenalog 40 mg/mL suspension for injection RxNorm: 4305634 Milliliter 09/11/2018 No longer Active Kenalog 40 mg/mL suspension for injection RxNorm: 1436513 Milliliter 06/28/2018 No longer Active ketorolac 30 mg/mL injection solution RxNorm: 760747 2Milliliter 05/02/2018 No longer Active ceftriaxone 500 mg solution for injection RxNorm: 9232353 1Milliliter 02/16/2017 No longer Active Kenalog 40 mg/mL suspension for injection RxNorm: 4794290 1Milliliter 02/16/2017 No longer Active ceftriaxone 1 gram solution for injection RxNorm: 8608419 10/06/2016 No longer Active Kenalog 40 mg/mL suspension for injection RxNorm: 5543560 Milliliter 01/20/2016 No longer Active Immunizations Vaccine [...] Item Item Code Result Date Culture Sputum 357903 LOWER RESPIRATORY TRACT CULTURE SEE NOTES 11/14/2018 Culture Sputum 579713 LOWER RESPIRATORY TRACT CULTURE SEE NOTES 10/16/2018 LIPID GRP [id number] CHOLESTEROL TNP:Duplicate Order 09/10/2018 LIPID GRP Triglyceride TNP:Duplicate Order 2017 LIPID GRP HDL CHOLESTEROL TNP:Duplicate Order 2017 LIPID GRP Chol/HDL Ratio TNP:Duplicate Order 2017 LIPID GRP LDL Cholesterol TNP:Duplicate Order 2017 A1C HPLC 7039764 Hgb A1c 36541-4 TNP:Duplicate Order 2017 C Diff An [id number] GDH TNP:Lab Request 06/22/2018 C Diff An [id number] Toxin A/B TNP:Lab Request 06/22/2018 C Diff An [id number] C Diff Analyzer TNP:Lab Request 2017 C Diff An [id number] IC OK? TNP:Lab Request 06/22/2018 CBC 4497690 WBC 6.4 10e9/L 05/02/2018 CBC 6324632 RBC 5.60 10e12/L 05/02/2018 CBC 6828811 HEMOGLOBIN 17.0 g/dL 05/02/2018 CBC 1991548 HEMATOCRIT 48.0 % 05/02/2018 CBC 7478849 MCV 85.7 fL 05/02/2018 CBC 6699167 MCH 30.4 pg 05/02/2018 CBC 6941454 MCHC 35.4 g/dL 05/02/2018 CBC 3922286 PLATELET COUNT 166 10e9/L 05/02/2018 CBC 0904877 Mean Plt Volume 11.6 fL 05/02/2018 CBC 6468411 Neut Auto 48.6 % 05/02/2018 CBC 5100301 Lymph Auto 41.7 % 05/02/2018 CBC 4955266 [place] Auto 8.1 % 05/02/2018 CBC 9280190 RDW 13.1 % 05/02/2018 CBC 8304592 Eos Auto 1.1 % 05/02/2018 CBC 2770134 Baso Auto 0.5 % 05/02/2018 CBC 4645816 Neutrophil Abs 3.11 10e9/L 05/02/2018 CBC 7868896 Lymphocyte Abs 2.67 10e9/L 05/02/2018 CBC 0372969 Monocyte Abs 0.52 10e9/L 05/02/2018 CBC 0784974 Eosinophil Abs 0.07 10e9/L 05/02/2018 CBC 6954290 RDW-SD 40.0 fL 05/02/2018 CBC 3249254 Basophil Abs 0.03 10e9/L 05/02/2018 CHEM 14 0462845 AST 17 U/L 05/02/2018 CHEM 14 3234565 ALT 17 U/L 05/02/2018 CHEM 14 7011960 BUN 17 mg/dL 05/02/2018 CHEM 14 0080295 ALBUMIN 4.0 g/dL 05/02/2018 CHEM 14 8941191 CHLORIDE 97 mmol/L 05/02/2018 CHEM 14 8958631 Bili Total 0.9 mg/dL 05/02/2018 CHEM 14 6319439 ALK PHOS 67 U/L 05/02/2018 CHEM 14 9198144 SODIUM 135 mmol/L 05/02/2018 CHEM 14 4574945 CREATININE 1.18 mg/dL 05/02/2018 CHEM 14 2444161 CALCIUM 9.4 mg/dL 05/02/2018 CHEM 14 6249419 POTASSIUM 4.4 mmol/L 05/02/2018 CHEM 14 1152588 TOTAL PROTEIN 6.9 g/dL 05/02/2018 CHEM 14 4898909 GLUCOSE 316 mg/dL 05/02/2018 CHEM 14 5384507 Bicarbonate 29 mmol/L 05/02/2018 CHEM 14 8862142 AGAP 9 mmol/L 05/02/2018 MEAN GLUC 1272475 Calc Mean Gluc 283 mg/dL 05/02/2018 A1C HPLC 8741172 Hgb A1c 60214-4 11.5 % 05/02/2018 GFR CALC 1989226 GFR Non Afr Amr >60 mL/min 05/02/2018 GFR CALC 0600300 GFR Afr Amr >60 mL/min 05/02/2018 JI Gold 7473257 JIC Gold Complete 02/28/2018 GFR CALC 1352558 GFR Non Afr Amr >60 mL/min 02/28/2018 GFR CALC 6034038 GFR Afr Amr >60 mL/min 02/28/2018 UA W/CII 2653159 UA Urine Appear Normal 02/28/2018 UA W/CII 6160833 UA Protein 1+ 02/28/2018 UA W/CII 1910205 UA Hemoglobin Negative 02/28/2018 UA W/CII 2748801 UA Glucose 4+ 02/28/2018 UA W/CII 1510990 UA Ketones Trace 02/28/2018 UA W/CII 5671228 UA pH 5.5 02/28/2018 UA W/CII 5274717 U Spec [place] 1.015 02/28/2018 UA W/CII 1618725 UA Bilirubin Negative 02/28/2018 UA W/CII 0385120 UA Nitrite NEG 02/28/2018 UA W/CII 0173783 UA Leuk Esteras Negative 02/28/2018 MICR 7221933 UA WBC/hpf 1 02/28/2018 MICR 4600902 UA RBC hpf 2 02/28/2018 MICR 3704614 UA WBC auto 3.8 /uL 02/28/2018 MICR 3506222 UA RBC auto 12.2 /uL 02/28/2018 MICR 8537252 UA SQ EPI auto 2.3 /uL 02/28/2018 MICR 1040587 UA H Cast auto 0.10 /uL 02/28/2018 CBC 3070248 WBC 6.4 10e9/L 02/28/2018 CBC 9615399 RBC 5.51 10e12/L 02/28/2018 CBC 2442558 HEMOGLOBIN 16.7 g/dL 02/28/2018 CBC 1049517 HEMATOCRIT 46.9 % 02/28/2018 CBC 5156283 MCV 85.1 fL 02/28/2018 CBC 0062998 MCH 30.3 pg 02/28/2018 CBC 5435435 MCHC 35.6 g/dL 02/28/2018 CBC 8721272 PLATELET COUNT 173 10e9/L 02/28/2018 CBC 4545554 Mean Plt Volume 11.6 fL 02/28/2018 CBC 9765844 Neut Auto 51.8 % 02/28/2018 CBC 6741499 Lymph Auto 39.9 % 02/28/2018 CBC 6346717 [place] Auto 7.3 % 02/28/2018 CBC 6865497 Eos Auto 0.8 % 02/28/2018 CBC 3426539 RDW 13.3 % 02/28/2018 CBC 9236404 Baso Auto 0.2 % 02/28/2018 CBC 5449906 Neutrophil Abs 3.32 10e9/L 02/28/2018 CBC 8889949 Lymphocyte Abs 2.55 10e9/L 02/28/2018 CBC 7359781 Monocyte Abs 0.47 10e9/L 02/28/2018 CBC 3753505 Eosinophil Abs 0.05 10e9/L 02/28/2018 CBC 5389749 Basophil Abs 0.01 10e9/L 02/28/2018 CBC 1395660 RDW-SD 40.8 fL 02/28/2018 CHEM 14 20280509 AST 17 U/L 02/28/2018 CHEM 14 2444781 ALT 17 U/L 02/28/2018 CHEM 14 1019596 BUN 20 mg/dL 02/28/2018 CHEM 14 0795879 ALBUMIN 4.1 g/dL 02/28/2018 CHEM 14 6054686 CHLORIDE 97 mmol/L 02/28/2018 CHEM 14 9022223 Bili Total 1.3 mg/dL 02/28/2018 CHEM 14 0094162 ALK PHOS 78 U/L 02/28/2018 CHEM 14 4826042 SODIUM 135 mmol/L 02/28/2018 CHEM 14 8011016 CREATININE 1.09 mg/dL 02/28/2018 CHEM 14 0283311 CALCIUM 9.6 mg/dL 02/28/2018 CHEM 14 4400990 POTASSIUM 3.8 mmol/L 02/28/2018 CHEM 14 2961120 TOTAL PROTEIN 7.3 g/dL 02/28/2018 CHEM 14 8682244 GLUCOSE 349 mg/dL 02/28/2018 CHEM 14 7147264 Bicarbonate 29 mmol/L 02/28/2018 CHEM 14 9708059 AGAP 9 mmol/L 02/28/2018 Mogul Spotted Fever Igg/Igm 801921 FEI MT SPOTTED FEVER IGM EIA . 09/05/2017 Mogul Spotted Fever Igg/Igm 838871 RMSF, IGM 0.17 index 09/05/2017 Mogul Spotted Fever Igg/Igm 369621 FEI MT SPOTTED FEVER IGG EIA FLEX . 09/05/2017 Mogul Spotted Fever Igg/Igm 775684 RMSF, IGG SCREEN-FLEX Positive 09/05/2017 Fei Mtn Spot'D Fev Igg 831545 RMSF, IGG -TITER IFA <1:64 11/2016 Ehrlichia Chaffeensis Antibody Igm 648472 EHRLICHIA CHAFFEENSIS IGM < 1:16 09/03/2017 Ehrlichia Chaffeensis Antibody Igg 701734 EHRLICHIA CHAFFEENSIS IGG <1:64 09/03/2017 Lymes Disease Total Antibodies With Western Blot Reflex B. BURGDORFERI, IGG/IGM 0.223 08/30/2017 Lymes Disease Total Antibodies With Western Blot Reflex C-Reactive Protein Qnt Crqnt CRP 0.00 mg/dl 08/27/2017 Sed Rate Ord21 ESR 8 mm/hr 08/27/2017 Comp Metabolic Iwy375 NA 135 mEq/L 08/16/2017 Comp Metabolic Zem380 K 4.1 mEq/L 08/16/2017 Comp Metabolic Yzg261 CL 98 mEq/L 08/16/2017 Comp Metabolic Psb749 CO2 28.0 mEq/L 08/16/2017 Comp Metabolic Ipw301 ANION GAP 13 08/16/2017 Comp Metabolic Cbm251 GLUCOSE 299 mg/dL 08/16/2017 Comp Metabolic Cwo681 Creat 0.9 mg/dL 08/16/2017 Comp Metabolic Kgr061 eGFR 90 ml/min/1.73m2 08/16/2017 Comp Metabolic Uzb554 BUN 20 mg/dL 08/16/2017 Comp Metabolic Maj677 B/C Ratio 21.5 Ratio 08/16/2017 Comp Metabolic Iab650 CALCIUM 9.2 mg/dL 08/16/2017 Comp Metabolic Rml928 ALK PHOS 84 U/L 08/16/2017 Comp Metabolic Yjv834 AST(SGOT) 19 U/L 08/16/2017 Comp Metabolic Atn314 ALT(SGPT) 24 U/L 08/16/2017 Comp Metabolic Enl694 BILI T 1.1 mg/dL 08/16/2017 Comp Metabolic Bzx442 ALBUMIN 4.2 g/dL 08/16/2017 Comp Metabolic Smq366 TPRO 7.2 g/dL 08/16/2017 Comp Metabolic Vek857 GLOB 3.0 g/dL 08/16/2017 Comp Metabolic Jwn442 A/G Ratio 1.4 Ratio 08/16/2017 Comp Metabolic Gjl911 Osmo 284 mOsmo 08/16/2017 %Hba1C Xru303 % HbA1c 27391-5 12.5 % 08/16/2017 %Hba1C Nzz252 Gluc Ave 312 mg/dL 08/16/2017 Urine Culture Ucult Complete NO Growth Day 2 06/23/2017 Urine Culture Ucult Preliminary NO Growth Day 1 06/23/2017 C RAP A SC [id number] Strep A Negative 06/08/2017 %Hba1C Hfi098 % HbA1c 19967-7 9.5 % 05/04/2017 %Hba1C Tpl939 Gluc Ave 226 mg/dL 05/04/2017 Tsh Ord6 [...] 31.7 pg 05/04/2017 Cbc With Differential Ord2 [place]% 8.5 % 05/04/2017 Cbc With Differential Ord2 [...] 2.48 K/ul 05/04/2017 Cbc With Differential Ord2 [place] ABS# 0.5 K/ul 05/04/2017 Cbc With Differential Ord2 Eos ABS# 0.1 K/ul 05/04/2017 Cbc With Differential Ord2 Baso ABS# 0.0 K/ul 05/04/2017 Comp Metabolic Wwy797 NA 135 mEq/L 05/04/2017 Comp Metabolic Nlu348 K 4.2 mEq/L 05/04/2017 Comp Metabolic Uvd460 CL 99 mEq/L 05/04/2017 Comp Metabolic Dsc682 CO2 26.0 mEq/L 05/04/2017 Comp Metabolic Vjm223 ANION GAP 14 05/04/2017 Comp Metabolic Fxx856 GLUCOSE 277 mg/dL 05/04/2017 Comp Metabolic Ghj123 Creat 0.9 mg/dL 05/04/2017 Comp Metabolic Gsa536 eGFR 96 ml/min/1.73m2 05/04/2017 Comp Metabolic Lie040 BUN 23 mg/dL 05/04/2017 Comp Metabolic Yvk308 B/C Ratio 26.1 Ratio 05/04/2017 Comp Metabolic Hik015 CALCIUM 8.9 mg/dL 05/04/2017 Comp Metabolic Jqi580 ALK PHOS 81 U/L 05/04/2017 Comp Metabolic Ufg179 AST(SGOT) 21 U/L 05/04/2017 Comp Metabolic Yhn854 ALT(SGPT) 27 U/L 05/04/2017 Comp Metabolic Wxd542 BILI T 1.2 mg/dL 05/04/2017 Comp Metabolic Vvp152 ALBUMIN 4.0 g/dL 05/04/2017 Comp Metabolic Jen384 TPRO 6.7 g/dL 05/04/2017 Comp Metabolic Woa648 GLOB 2.7 g/dL 05/04/2017 Comp Metabolic Duk692 A/G Ratio 1.5 Ratio 05/04/2017 Comp Metabolic Ynr095 Osmo 284 mOsmo 05/04/2017 C A/B FLU 6470340 Influenza A Scr Negative 02/16/2017 C A/B FLU [id number] Influenza B Scr Positive 02/16/2017 Cbc With [...] 39.7 % 05/23/2016 Cbc With Differential Ord2 [place]% 8.8 % 05/23/2016 Cbc With Differential Ord2 [...] 2.07 K/ul 05/23/2016 Cbc With Differential Ord2 [place] ABS# 0.5 K/ul 05/23/2016 Cbc With Differential Ord2 Eos ABS# 0.1 K/ul 05/23/2016 Cbc With Differential Ord2 Baso ABS# 0.0 K/ul 05/23/2016 Lipid Ord30 CHOL 397 mg/dL 05/17/2016 Lipid Ord30 HDL 48.0 mg/dl 05/17/2016 Lipid Ord30 TRIG 578 mg/dL 05/17/2016 Lipid Ord30 LDL Unable to calculate Due to elevated triglycerides mg/dL 05/17/2016 Lipid Ord30 C/HDL 8.3 Ratio 05/17/2016 %Hba1C Lca776 % HbA1c 41153-9 12.4 % 05/16/2016 %Hba1C Zag078 Gluc Ave 309 mg/dL 05/16/2016 Cbc With [...] 87.4 fl 05/15/2016 Cbc With Differential Ord2 [place]% 7.8 % 05/15/2016 Cbc With Differential Ord2 [...] 2.04 K/ul 05/15/2016 Cbc With Differential Ord2 [place] ABS# 0.5 K/ul 05/15/2016 Cbc With Differential Ord2 Eos ABS# 0.1 K/ul 05/15/2016 Cbc With Differential Ord2 Baso ABS# 0.0 K/ul 05/15/2016 Tsh Ord6 hTSH II 1.70 uIU/mL 05/15/2016 Comp Metabolic Nmz791 NA 135 mEq/L 05/15/2016 Comp Metabolic Ilw886 K 3.9 mEq/L 05/15/2016 Comp Metabolic Pab386 CL 96 mEq/L 05/15/2016 Comp Metabolic Alc523 CO2 27.0 mEq/L 05/15/2016 Comp Metabolic Jio541 ANION GAP 16 05/15/2016 Comp Metabolic Zjx354 GLUCOSE 183 mg/dL 05/15/2016 Comp Metabolic Dyv172 Creat 1.1 mg/dL 05/15/2016 Comp Metabolic Fiu121 eGFR 71 ml/min/1.73m2 05/15/2016 Comp Metabolic Ynf785 BUN 17 mg/dL 05/15/2016 Comp Metabolic Czd472 B/C Ratio 14.9 Ratio 05/15/2016 Comp Metabolic Gdp434 CALCIUM 9.6 mg/dL 05/15/2016 Comp Metabolic Sew136 ALK PHOS 100 U/L 05/15/2016 Comp Metabolic Bbc044 AST(SGOT) 20 U/L 05/15/2016 Comp Metabolic Zsd413 ALT(SGPT) 20 U/L 05/15/2016 Comp Metabolic Xxz211 BILI T 1.3 mg/dL 05/15/2016 Comp Metabolic Gkv686 ALBUMIN 4.6 g/dL 05/15/2016 Comp Metabolic Ojp027 TPRO 8.1 g/dL 05/15/2016 Comp Metabolic Sij916 GLOB 3.5 g/dL 05/15/2016 Comp Metabolic Wye620 A/G Ratio 1.3 Ratio 05/15/2016 Comp Metabolic Emt463 Osmo 276 mOsmo 05/15/2016 Review of Systems [...] of skin Location: face 05/04/2017 patch left [facility] Full Exam - General 1994 Constitutional general [...] CPT-4: J3301 09/30/2018 THER/PROPH/DIAG INJ SC/IM CPT-4: 16058 09/11/2018 TRIAMCINOLONE ACET INJ NOS CPT-4: J3301 09/11/2018 IMMUNIZATION ADMIN CPT -4: 51095 07/22/2018 FLU VAC NO PRSV 4 MENA 3 YRS+ CPT-4: 78913 07/22/2018 TRIAMCINOLONE ACET INJ NOS CPT-4: J3301 06/28/2018 KETOROLAC TROMETHAMINE INJ CPT-4: J1885 05/02/2018 FLU VAC NO PRSV 4 MENA 3 YRS+ CPT-4: 88171 08/16/2017 IMMUNIZATION ADMIN CPT -4: 79927 08/16/2017 URINALYSIS NONAUTO W/O SCOPE CPT-4: 95585 06/21/2017 TRIAMCINOLONE ACET INJ NOS CPT-4: J3301 05/04/2017 THER/PROPH/DIAG INJ SC/IM CPT-4: 04418 05/04/2017 TRIAMCINOLONE ACET INJ NOS CPT-4: J3301 02/16/2017 ROCEPHIN, PER 250 MG CPT-4: J0696 02/16/2017 ROCEPHIN, PER 250 MG CPT-4: J0696 10/06/2016 URINALYSIS NONAUTO W/O SCOPE CPT-4: 08588 07/18/2016 TRIAMCINOLONE ACET INJ NOS CPT-4: J3301 01/20/2016 Vital Signs Date Vital 12/26/2018 Blood Pressure 1: 118/72 Code : 8480-6 BMI: 34.4 Code : 73622-5 Heart Rate 1 : 82 bpm Height: 6'2" SpO2: 98% Temperature: 36.6 (C) / 97.9 (F) Weight: 268 lbs 11/18/2018 Blood Pressure 1: 120/84 Code : 8480-6 BMI: 33.9 Code : 08762-8 Heart Rate 1 : 77 bpm Height: 6'2" SpO2: 99% Temperature: 36.7 (C) / 98.1 (F) Weight: 264 lbs 11/12/2018 Blood Pressure 1: 138/76 Code : 8480-6 BMI: 33.9 Code : 08509-0 Heart Rate 1 : 91 bpm Height: 6'2" SpO2: 99% Weight: 264 lbs 10/30/2018 Blood Pressure 1: 130/72 Code : 8480-6 BMI: 33.3 Code : 93267-2 Heart Rate 1 : 83 bpm Height: 6'2" SpO2: 95% Temperature: 36.5 (C) / 97.7 (F) Weight: 259 lbs 10/24/2018 Blood Pressure 1: 130/70 Code : 8480-6 Heart Rate 1: 95 bpm Height: 6'2" SpO2: 96% 10/23/2018 Blood Pressure 1: 100/70 Code : 8480-6 Blood Pressure 2: 102/70 Code: 8480-6 BMI: 33.3 Code: 07245-8 Heart Rate 1: 106 bpm Height: 6'2" SpO2: 98% Weight: 259 lbs 10/21/2018 Blood Pressure 1: 140/90 Code : 8480-6 BMI: 32.9 Code : 60153-4 Heart Rate 1 : 96 bpm Height: 6'2" SpO2: 92% Weight: 256 lbs 10/17/2018 Blood Pressure 1: 110/68 Code : 8480-6 BMI: 32.9 Code : 34998-5 Heart Rate 1 : 82 bpm Height: 6'2" SpO2: 97% Weight: 256 lbs 10/14/2018 Blood Pressure 1: 124/70 Code : 8480-6 BMI: 33.6 Code : 57380-3 Heart Rate 1 : 76 bpm Height: 6'2" SpO2: 99% Temperature: 36.3 (C) / 97.3 (F) Weight: 262 lbs 09/30/2018 Blood Pressure 1: 138/82 Code : 8480-6 BMI: 33.6 Code : 38773-8 Heart Rate 1 : 82 bpm Height: 6'2" SpO2: 98% Temperature: 36.3 (C) / 97.3 (F) Weight: 262 lbs 09/09/2018 Blood Pressure 1: 140/80 Code : 8480-6 BMI: 33.0 Code : 62623-1 Heart Rate 1 : 97 bpm Height: 6'2" SpO2: 93% Temperature: 36.8 (C) / 98.2 (F) Weight: 257 lbs 07/22/2018 Blood Pressure 1: 120/78 Code : 8480-6 BMI: 31.6 Code : 12204-6 Heart Rate 1 : 87 bpm Height: 6'2" SpO2: 98% Weight: 246 lbs 07/16/2018 Blood Pressure 1: 132/74 Code : 8480-6 BMI: 31.2 Code : 87167-8 Heart Rate 1 : 90 bpm Height: 6'2" SpO2: 96% Weight: 243 lbs 07/01/2018 Blood Pressure 1: 142/82 Code : 8480-6 BMI: 31.8 Code : 88071-7 Heart Rate 1 : 88 bpm Height: 6'2" SpO2: 98% Weight: 248 lbs 06/28/2018 Blood Pressure 1: 132/76 Code : 8480-6 BMI: 31.8 Code : 79609-6 Heart Rate 1 : 107 bpm Height: 6'2" SpO2: 98% Temperature: 37.9 (C) / 100.3 (F) Weight: 248 lbs 06/18/2018 Blood Pressure 1: 138/82 Code : 8480-6 BMI: 31.8 Code : 80641-9 Heart Rate 1 : 82 bpm Height: 6'2" SpO2: 97% Weight: 248 lbs 06/04/2018 Blood Pressure 1: 128/84 Code : 8480-6 BMI: 33.9 Code : 04703-1 Heart Rate 1 : 86 bpm Height: 6'2" SpO2: 95% Weight: 264 lbs 05/13/2018 Blood Pressure 1: 130/80 Code : 8480-6 BMI: 31.1 Code : 34591-4 Heart Rate 1 : 100 bpm Height: 6'2" SpO2: 94% Weight: 242 lbs 05/02/2018 Blood Pressure 1: 134/84 Code : 8480-6 BMI: 31.2 Code : 06255-7 Heart Rate 1 : 93 bpm Height: 6'2" SpO2: 98% Weight: 243 lbs 04/29/2018 Blood Pressure 1: 142/88 Code : 8480-6 BMI: 31.6 Code : 18164-6 Heart Rate 1 : 96 bpm Height: 6'2" SpO2: 96% Temperature: 36.7 (C) / 98.1 (F) Weight: 246 lbs 03/13/2018 Blood Pressure 1: 120/76 Code : 8480-6 BMI: 30.9 Code : 80232-6 Heart Rate 1 : 112 bpm Height: 6'2" SpO2: 97% Weight: 241 lbs 03/07/2018 Blood Pressure 1: 108/78 Code : 8480-6 BMI: 30.0 Code : 95084-2 Heart Rate 1 : 87 bpm Height: 6'2" SpO2: 98% Weight: 234 lbs 02/28/2018 Blood Pressure 1: 106/74 Code : 8480-6 BMI: 30.0 Code : 05040-9 Heart Rate 1 : 101 bpm Height: 6'2" SpO2: 98% Temperature: 36.4 (C) / 97.5 (F) Weight: 234 lbs 02/13/2018 Blood Pressure 1: 110/78 Code : 8480-6 BMI: 30.0 Code : 45831-2 Heart Rate 1 : 106 bpm Height: 6'2" SpO2: 98% Weight: 234 lbs 01/29/2018 Blood Pressure 1: 106/68 Code : 8480-6 BMI: 30.0 Code : 18480-0 Heart Rate 1 : 108 bpm Height: 6'2" SpO2: 98% Weight: 234 lbs 08/27/2017 Blood Pressure 1: 134/76 Code : 8480-6 Heart Rate 1: 98 bpm Height: SpO2: 97% Weight: 08/16/2017 Blood Pressure 1: 128/80 Code : 8480-6 BMI: 32.0 Code : 91430-9 Heart Rate 1 : 94 bpm Height: [...] Code : 8480-6 BMI: 31.8 Code : 72108-1 Heart Rate 1 : 102 bpm Height: [...] Code : 8480-6 BMI: 31.8 Code : 28794-8 Heart Rate 1 : 85 bpm Height: 6'2" SpO2: 96% Temperature: 36.6 (C) / 97.9 (F) Weight: 248 lbs 02/12/2017 Blood Pressure 1: 126/76 Code : 8480-6 BMI: 31.8 Code : 46736-4 Heart Rate 1 : 106 bpm Height: 6'2" SpO2: 91% Weight: 248 lbs 02/05/2017 Blood Pressure 1: 146/86 Code : 8480-6 BMI: 31.9 Code : 38639-5 Heart Rate 1 : 98 bpm Height: 6'2" SpO2: 87% Temperature: 36.7 (C) / 98.0 (F) Weight: 248 lbs 8 oz 01/29/2017 Blood Pressure 1: 132/84 Code : 8480-6 BMI: 31.8 Code : 76623-8 Heart Rate 1 : 83 bpm Height: 6'2" SpO2: 97% Weight: 248 lbs 10/13/2016 Blood Pressure 1: 128/72 Code : 8480-6 Heart Rate 1: 86 bpm SpO2: 94% 10/09/2016 Blood Pressure 1: 128/68 Code : 8480-6 Heart Rate 1: 136 bpm SpO2: 94% Temperature: 36.8 (C) / 98.2 (F) 10/06/2016 Blood Pressure 1: 140/80 Code : 8480-6 BMI: 32.1 Code : 27801-0 Heart Rate 1 : 94 bpm Height: 6'2" SpO2: 95% Weight: 250 lbs 07/18/2016 Blood Pressure 1: 128/86 Code : 8480-6 BMI: 32.1 Code : 29636-5 Heart Rate 1 : 89 bpm Height: 6'2" SpO2: 96% Weight: 250 lbs 06/22/2016 Blood Pressure 1: 118/70 Code : 8480-6 BMI: 32.1 Code : 63784-4 Heart Rate 1 : 70 bpm Height: 6'2" SpO2: 97% Weight: 250 lbs 05/23/2016 Blood Pressure 1: 128/80 Code : 8480-6 BMI: 32.1 Code : 33117-3 Heart Rate 1 : 76 bpm Height: 6'2" SpO2: 98% Weight: 250 lbs 05/15/2016 Blood Pressure 1: 110/90 Code : 8480-6 BMI: 31.3 Code : 76133-5 Heart Rate 1 : 111 bpm Height: 6'2" SpO2: 97% Temperature: 36.6 (C) / 97.8 (F) Weight: 244 lbs 01/20/2016 Blood Pressure 1: 128/76 Code : 8480-6 BMI: 33.0 Code : 96275-0 Heart Rate 1 : 103 bpm Height: [...] Cough[ICD10: R05] [facility] CPT-4: 62605 12/26/2018 ([id number]) 63235 EST. PATIENT, LEVEL III Diagnosis: Cough[ICD10: R05] [facility] CPT-4: 56521 11/18/2018 ([id number]) 88437 EST. PATIENT, LEVEL III Diagnosis: Cough[ICD10: R05] Diagnosis: Pneumonia due to other Gram-negative bacteria[ICD10: J15.6] Marcela Ha MD, [facility] CPT-4: 98306 11/12/2018 ([id number]) 50305 EST. PATIENT, LEVEL III Diagnosis: Pneumonia due to other Gram-negative bacteria[ICD10: J15.6] Diagnosis: Cough[ICD10: R05] Melida Ha MD, [facility] CPT-4: 93625 10/30/2018 ([id number]) 85952 EST. PATIENT, LEVEL II Diagnosis: Pain in joints of right hand[ICD10: M25.541] Diagnosis: Trigger finger, right middle finger[ICD10: M65.331] Marcela Ha MD, [facility] CPT-4: 16858 10/24/2018 ([id number]) 21000 EST. PATIENT, LEVEL IV Diagnosis: Essential (primary) hypertension[ICD10: I10] Diagnosis: Type 2 diabetes mellitus with foot ulcer[ICD10: E11.621] Melida Ha MD, [facility] CPT-4: 09224 10/23/2018 ([id number]) 84586 EST. PATIENT, LEVEL III Diagnosis: Cellulitis of right finger[ICD10: L03.011] Diagnosis: Type 2 diabetes mellitus with foot ulcer[ICD10: E11.621] Diagnosis: Pain in right hand[ICD10: M79.641] Melida Ha MD, [facility] CPT-4: 15902 10/21/2018 29326 EST. PATIENT, LEVEL III Diagnosis: Spontaneous ecchymoses[ICD10: R23.3] Diagnosis: Cellulitis of right lower limb[ICD10: L03.115] Diagnosis: Cellulitis of left lower limb[ICD10: L03.116] Madeline Ha MD, [facility] CPT-4: 54302 10/17/2018 ([id number]) 23135 EST. PATIENT, LEVEL III Diagnosis: Cough[ICD10: R05] Diagnosis: Acute bronchitis, unspecified[ICD10: J20.9] Melida Ha MD, [facility] CPT-4: 62874 10/14/2018 [id number] EST. PATIENT, LEVEL III Diagnosis: Acute laryngopharyngitis[ICD10: J06.0] Diagnosis: Cough[ICD10: R05] Madeline Ha MD, [facility] CPT-4: 26229 09/30/2018 ([id number]) 36352 EST. PATIENT, LEVEL III Diagnosis: Acute recurrent maxillary sinusitis[ICD10: J01.01] Diagnosis: Cough[ICD10: R05] Diagnosis: Type 2 diabetes mellitus with hyperglycemia[ICD10: E11.65] Marcela Ha MD, [facility] CPT-4: 04227 09/09/2018 ([id number]) 59241 EST. PATIENT, LEVEL IV Diagnosis: Essential (primary) hypertension[ICD10: I10] Diagnosis: Mixed hyperlipidemia[ICD10: E78.2] Diagnosis: Bipolar disorder, current episode depressed, moderate[ICD10: F31.32] Diagnosis: Type 2 diabetes mellitus with other specified complication[ICD10: E11.69] Melida Ha MD, [facility] CPT-4: 99120 2017 ([id number]) 74200 EST. PATIENT, LEVEL III Diagnosis: Insomnia due to medical condition[ICD10: G47.01] Marcela Ha MD, [facility] CPT-4: 79614 07/16/2018 ([id number]) Miscellaneous no charge Diagnosis: Cough[ICD10: R05] Madeline Ha MD, [facility] CPT-4: 13095 07/01/2018 37601 EST. PATIENT, LEVEL III Diagnosis: Cough[ICD10: R05] Diagnosis: Acute laryngopharyngitis[ICD10: J06.0] Diagnosis: Other allergic rhinitis[ICD10: J30.89] Madeline Ha MD, [facility] CPT-4: 20830 06/28/2018 ([id number]) 65395 EST. PATIENT, LEVEL IV Diagnosis: Type 2 diabetes mellitus with hyperglycemia[ICD10: E11.65] Diagnosis: Essential (primary) hypertension[ICD10: I10] Melida Ha MD, [facility] CPT-4: 52306 06/18/2018 ([id number]) 81285 EST. PATIENT, LEVEL IV Diagnosis: Type 2 diabetes mellitus with hyperglycemia[ICD10: E11.65] Diagnosis: Essential (primary) hypertension[ICD10: I10] Diagnosis: Localized edema[ICD10: R60.0] Melida Ha MD, [facility] CPT- 4: 78409 06/04/2018 ([id number]) 53007 EST. PATIENT, LEVEL III Diagnosis: Type 2 diabetes mellitus with hyperglycemia[ICD10: E11.65] Diagnosis: Myalgia[ICD10: M79.1] Diagnosis: Pain in right hip[ICD10: M25.551] Diagnosis: Pain in left hip[ICD10: M25.552] Marcela Ha MD, [facility] CPT-4: 29834 05/13/2018 ([id number]) 67917 EST. PATIENT, LEVEL III Diagnosis: Myalgia[ICD10: M79.1] Diagnosis: Pain in right hip[ICD10: M25.551] Diagnosis: Pain in left hip[ICD10: M25.552] Marcela Ha MD, [facility] CPT-4: 33314 05/02/2018 ([id number]) 11510 EST. PATIENT, LEVEL IV Diagnosis: Essential (primary) hypertension[ICD10: I10] Diagnosis: Type 2 diabetes mellitus with hyperglycemia[ICD10: E11.65] Diagnosis: Major depressive disorder, single episode, moderate[ICD10: F32.1] Diagnosis: Myalgia[ICD10: M79.1] Marcela Ha MD, [facility] CPT-4: 82315 04/29/2018 ([id number]) 94539 EST. PATIENT, LEVEL IV Diagnosis: Type 2 diabetes mellitus with hyperglycemia[ICD10: E11.65] Diagnosis: Essential (primary) hypertension[ICD10: I10] Diagnosis: Major depressive disorder, single episode, moderate[ICD10: F32.1] Melida Ha MD, [facility] CPT-4: 47697 03/13/2018 ([id number]) 26847 EST. PATIENT, LEVEL III Diagnosis: Type 2 diabetes mellitus with hyperglycemia[ICD10: E11.65] Diagnosis: Bipolar disorder, current episode depressed, moderate[ICD10: F31.32] Diagnosis: Orthostatic hypotension[ICD10: I95.1] Marcela Ha MD, [facility] CPT-4: 86187 03/07/2018 ([id number]) 51919 EST. PATIENT, LEVEL IV Diagnosis: Type 2 diabetes mellitus with hyperglycemia[ICD10: E11.65] Diagnosis: Major depressive disorder, single episode, moderate[ICD10: F32.1] Diagnosis: Orthostatic hypotension[ICD10: I95.1] Diagnosis: Other fatigue[ICD10: R53.83] Marcela Ha MD, [facility] CPT-4: 32241 02/28/2018 89106 EST. PATIENT, LEVEL IV Diagnosis: Other fatigue[ICD10: R53.83] Diagnosis: Other malaise[ICD10: R53.81] Diagnosis: Gastro-esophageal reflux disease without esophagitis[ICD10: K21.9] Madeline Ha MD, [facility] CPT-4: 30734 02/13/2018 ([id number]) 15712 EST. PATIENT, LEVEL IV Diagnosis: Type 2 diabetes mellitus with foot ulcer[ICD10: E11.621] Diagnosis: Essential (primary) hypertension[ICD10: I10] Diagnosis: Gastro-esophageal reflux disease without esophagitis[ICD10: K21.9] Marcela Ha MD, [facility] CPT-4: 17157 01/29/2018 87916 EST. PATIENT, LEVEL III Diagnosis: Other malaise[ICD10: R53.81] Diagnosis: Other fatigue[ICD10: R53.83] Diagnosis: Pain in right shoulder[ICD10: M25.511] Diagnosis: Pain in left shoulder[ICD10: M25.512] Madeline Ha MD, [facility] CPT-4: 60855 08/27/2017 ([id number]) 40629 EST. PATIENT, LEVEL IV Diagnosis: Essential (primary) hypertension[ICD10: I10] Diagnosis: Type 2 diabetes mellitus with hyperglycemia[ICD10: E11.65] Diagnosis: VACCIN FOR INFLUENZA[ICD10: Z23] Melida Ha MD, [facility] CPT-4: 11251 08/16/2017 71587 EST. PATIENT, LEVEL III Diagnosis: Zoster without complications[ICD10: B02.9] Madeline Ha MD, [facility] CPT-4: 12278 07/26/2017 ([id number]) 16865 EST. PATIENT, LEVEL III Diagnosis: Cellulitis of right lower limb[ICD10: L03.115] Marcela Ha MD, [facility] CPT-4: 65833 07/03/2017 87745 EST. PATIENT, LEVEL II Diagnosis: Laceration without foreign body of left forearm, initial encounter[ ICD10: S51.812A] Marcela Ha MD [facility] CPT-4: 18343 06/29/2017 ([id number]) 83638 EST. PATIENT, LEVEL III Diagnosis: Cellulitis of right lower limb[ICD10: L03.115] Diagnosis: Type 2 diabetes mellitus with foot ulcer[ICD10: E11.621] Marcela Ha MD [facility] CPT-4: 66922 06/18/2017 ([id number]) 76974 EST. PATIENT, LEVEL IV Diagnosis: Cellulitis of right lower limb[ICD10: L03.115] Diagnosis: Acute laryngopharyngitis[ICD10: J06.0] Diagnosis: Gastro-esophageal reflux disease without esophagitis[ICD10: K21.9] Marcela Ha MD [facility] CPT-4: 93412 06/07/2017 ([id number]) 18127 EST. PATIENT, LEVEL III Diagnosis: Type 2 diabetes mellitus with hyperglycemia[ICD10: E11.65] Diagnosis: Insect bite (nonvenomous) of abdominal wall, initial encounter[ICD10 : S30.861A] Marcela Ha MD [facility] CPT-4: 94805 05/17/2017 ([id number]) 55122 EST. PATIENT, LEVEL III Diagnosis: Allergic contact dermatitis due to plants, except food[ICD10: L23.7] Melida Ha MD [facility] CPT-4: 22051 05/04/2017 ([id number]) 12555 EST. PATIENT, LEVEL III Diagnosis: Essential (primary) hypertension[ICD10: I10] Marcela Ha MD [facility] CPT-4: 31349 03/15/2017 ([id number]) 57986 EST. PATIENT, LEVEL III Diagnosis: Cough[ICD10: R05] Diagnosis: Essential (primary) hypertension[ICD10: I10] Marcela Ha MD [facility] CPT-4: 77045 03/01/2017 ([id number]) 57343 EST. PATIENT, LEVEL III Diagnosis: Cough[ICD10: R05] Diagnosis: Nasal congestion[ICD10: R09.81] Diagnosis: Acute recurrent maxillary sinusitis[ICD10: J01.01] Marcela Ha MD [facility] CPT-4: 73387 02/16/2017 ([id number]) 94607 EST. PATIENT, LEVEL III Diagnosis: Type 2 diabetes mellitus with hyperglycemia[ICD10: E11.65] Marcela Ha MD [facility] CPT-4: 78617 02/12/2017 ([id number]) 44136 EST. PATIENT, LEVEL IV Diagnosis: Type 2 diabetes mellitus with hyperglycemia[ICD10: E11.65] Diagnosis: Muscle weakness (generalized)[ICD10: M62.81] Diagnosis: Disorientation, unspecified[ICD10: R41.0] Marcela Ha MD [facility] CPT-4: 79505 02/05/2017 ([id number]) Patient admitted to the hospital from clinic (NO CHARGE) Diagnosis: Type 2 diabetes mellitus with hyperglycemia[ICD10: E11.65] Diagnosis: Disorientation, unspecified[ICD10: R41.0] Diagnosis: Muscle weakness (generalized)[ICD10: M62.81] Marcela Ha MD, [facility] CPT-4: 70567S 01/29/2017 ([id number]) Miscellaneous no charge Diagnosis: Cellulitis of right lower limb[ICD10: L03.115] Marcela Ha MD, [facility] CPT-4: 98384 10/13/2016 ([id number]) Miscellaneous no charge Diagnosis: Type 2 diabetes mellitus with foot ulcer[ICD10: E11.621] Diagnosis: Pain in right foot[ICD10: M79.671] Marcela Ha MD, [facility] CPT-4: 73488 10/09/2016 47487 EST. PATIENT, LEVEL II Diagnosis: Cellulitis of right lower limb[ICD10: L03.115] Marcela Ha MD [facility] CPT-4: 10556 10/06/2016 ([id number]) 81610 EST. PATIENT, LEVEL IV Diagnosis: Low back pain[ICD10: M54.5] Diagnosis: Other deformities of toe(s) (acquired), left foot[ICD10: M20.5X2] Diagnosis: Type 2 diabetes mellitus with foot ulcer[ICD10: E11.621] Marcela Ha MD , [facility] CPT-4: 64387 07/18/2016 ([id number]) 76873 EST. PATIENT, LEVEL III Diagnosis: Type 2 diabetes mellitus with hyperglycemia[ICD10: E11.65] Marcela Ha MD, [facility] CPT-4: 70835 06/22/2016 ([id number]) 22543 EST. PATIENT, LEVEL IV Diagnosis: Type 2 diabetes mellitus with hyperglycemia[ICD10: E11.65] Diagnosis: Mixed hyperlipidemia[ICD10: E78.2] Diagnosis: Other hemoglobinopathies[ICD10: D58.2] Marcela Ha MD, [facility] CPT-4: 31293 05/23/2016 ([id number]) 72878 EST. PATIENT, LEVEL IV Diagnosis: Type 2 diabetes mellitus with other specified complication[ICD10: E11.69] Diagnosis: Dehydration[ICD10: E86.0] Marcela Ha MD, [facility] CPT-4: 34094 05/15/2016 ([id number]) OFFICE VISIT, NEW - LEVEL 3 Diagnosis: Allergic contact dermatitis due to plants, except food[ICD10: L23.7] Madeline Ha MD, [facility] CPT-4: 63924 01/20/2016 Plan of Care Planned Activity Notes Codes Status Date Visit Plan: chest pain - EKG and cardiac enzymes OK - discussed with Dr. Ha - will treat for pneumonia - pt is to notify clinic if symptoms do not improve, if they worsen, or with any changes questions, or concerns. 12/26/2018 Appointment: [facility] ([facility] Complex 12/26/2018 Patient Education: Patient Medication Summary Completed 12/26/2018 Referral: Andrew Cross Patient informed. Referral info faxed. Completed Visit Plan: cough - improved - continue with inhalers - continue with symbicort - rx for proair for PRN use when pt is feelign short of breath with activity. 11/18/2018 Appointment: Melida Ha WPtel: [facility] (15 min) Moderate 11/18/2018 Patient Education: Patient [...] of plan. 11/12/2018 Appointment: Marcela Oshea WPtel: [address] [place], [place] [phone] (30 min) Complex 11/12/2018 Patient Education: Patient Medication Summary Completed 11/12/2018 Patient Education: Symbicort - 18-64 - eCopay Completed 11/12/2018 Care Plan: Referral Order SNOMED-CT : [id number] Pending 11/12/2018 Referral: Niko Mantilla Referral Completed 11/04/2018 Visit Plan: Pneumonia, cough - recent diagnosis of Moraxella Cattharalis - with sensitivity to levaquin - will give 2 wks of levaquin since he had improvement but no full resolution of symptoms. 10/30/2018 Appointment: Melida Ha WPtel: [address] [place], [place] [phone] 30 min appointments only in this slot [...] evaluation 10/24/2018 App[facility]ment: [facility] [phone] [phone] (30 min) Complex 10/24/2018 Patient Education: Patient Medication Summary Completed 10/24/2018 Care Plan: Referral Order SNOMED-CT : 262270064 Pending 10/24/2018 Visit Plan: Hypotension - discussed [...] controlled. 10/23/2018 Appointment: [facility] Ha [facility]el[facility] [phone] [facility] (15 min) Moderate 10/23/2018 Patient Education: Patient [...] and plan. 10/21/2018 Appointment: Marcela Oshea WPtel: [phone] (30 min) Complex 10/21/2018 Patient Education: Patient [...] warmth, discharge. 10/17/2018 Appointment: Madeline Kennedy WPtel: [facility] (15 min) Moderate 10/17/2018 Patient Education: [...] acutely worsen. 10/14/2018 Appointment: Marcela Oshea WPtel: [phone] (15 min) Moderate 10/14/2018 Patient Education: Patient Medication Summary Completed 10/14/2018 Care Plan: CHEST X-RAY 2VW FRONTAL&LATL LOINC : 34549-3 Pending 10/14/2018 Visit Plan: URI - Pt [...] allergy spray. 09/30/2018 Appointment: Madeline Kennedy WPtel: [address] [place], [place] [phone] (15 min) Moderate 09/30/2018 Patient Education: Patient [...] Hgb A1C 09/09/2018 Appointment: Marcela Oshea WPtel: [address] [place], [place] [phone] (15 min) Moderate 09/09/2018 Patient Education: Patient Medication Summary Completed 09/09/2018 Patient Education: Patient Medication Summary Completed 09/06/2018 Patient Education: Cholesterol Management Completed 09/06/2018 Care Plan: Comp Metabolic Pending 09/06/2018 Care Plan: Cbc With Differential Pending 09/06/2018 Care Plan: %Hba1C LOINC : 18657-0 Pending 09/06/2018 Care Plan: Tsh Pending 09/06/2018 Care Plan: Lipid Pending 09/06/2018 Appointment: Marcela Oshea WPtel: [address] [place], [place] [phone] (15 min) Moderate 08/26/2018 Appointment: [facility] [phone] [phone] (15 min) Moderate 08/23/2018 Visit Plan: [...] clinic. 07/22/2018 Appointment: [facility] Ha [facility]Ptel[facility] [phone] [facility] (15 min) Moderate 07/22/2018 Patient Education: Patient [...] time insomnia. 07/16/2018 App[facility]ment: [phone] [phone] (30 min) Complex 07/16/2018 Patient Education: Patient Medication Summary Completed 07/16/2018 Visit Plan: cough - improved - notify clinic if symptoms do not completely resolve, or with any questions or concerns. 07/01/2018 App[facility]ment: [phone] [facility] ([facility]) Moderate 07/01/2018 Patient Education: [...] spray. 06/28/2018 Appointment: [phone] [facility] ([facility] min) Moderate 06/28/2018 Patient Education: [...] home. 06/18/2018 Appointment: Melida Ha [facility]Ptel[facility] [phone] [facility] (15 min) Moderate 06/18/2018 Patient Education: Patient [...] improves. 06/04/2018 Appointment: Melida Ha WPtel: [phone] [facility] (15 min) Moderate 06/04/2018 Patient Education: Patient [...] allow for greater blood glucose control. Joint wxbn-ifyevebu-fqzueiy- symptoms have improved -stop meloxicam due to upset stomach-call if symptoms return 05/13/2018 Appointment: Marcela Oshea WPtel: [address] [place], [place] [phone] (30 min) Complex 05/13/2018 Patient Education: Patient Medication Summary Completed 05/13/2018 Visit Plan: Bilateral hip wtvz-nojonrmv-bollzjy IM injection administered today for c/o continued myalgia/arthralgia. Patient to start taking Meloxicam 15mg PO daily. Advised to return to clinic if symptoms do not improve. 05/02/2018 Appointment: Marcela Oshea WPtel: [phone] (30 min) Complex 05/02/2018 Patient Education: Patient [...] readings at home. Diabetes Mellitus -check labs Sgfdstdc-pygpoox-gzen bite-rx for doxycycline-follow up in 2 weeks 04/29/2018 Appointment: Marcela Oshea WPtel: [address] [place], [place] [phone] (15 min) Moderate 04/29/2018 Patient Education: Patient Medication Summary Completed 04/29/2018 Appointment: Melida Ha WPtel: [address] [place], [place] [phone] (15 min) Moderate 04/15/2018 Appointment: Marcela Oshea WPtel: [address] [place], [place] [phone] (30 min) Complex 03/21/2018 Visit Plan: Hypertension [...] cymbalta 03/13/2018 Appointment: Melida Ha [facility]el[facility] [phone] [phone] (30 min) Complex 03/13/2018 Patient Education: Patient Medication Summary Completed 03/13/2018 Visit Plan: DM-continue same medications-monitor blood sugars routinely as directed -rx for new glucometer and test strips provided Bipolar-currently depressed-patient start on vraylar-follow up in 2 weeks, sooner if needed. Patient and verbalied understanding of plan. Hypotension- stay off losartan 03/07/2018 Appointment: Marcela Oshea WPtel: [phone] [phone] [place] (30 min) Complex 03/07/2018 Patient Education: Patient Medication Summary Completed 03/07/2018 Appointment: [phone] (15 min) Moderate 03/04/2018 Visit Plan: Hypotension-continue [...] this patient. 02/28/2018 [facility]ment[phone] (30 min) Complex 02/28/2018 Patient Education: [...] improving. 02/13/2018 [facility]ment: [phone] (15 min) Moderate 02/13/2018 Patient Education: Patient Medication Summary Completed 02/13/2018 Referral: Sun Glynn Patient informed. Referral info faxed. Completed Visit Plan: DM-weight loss-not checking blood sugars- patient sent for labs today HTN-low hgrto-wvsrwgo-ivmhq labs Callus of foot and fissue of [...] improving. 01/29/2018 Appointment: [phone] (30 min) Complex 01/29/2018 Patient Education: Patient Medication Summary Completed 01/29/2018 Care Plan: Comp Metabolic Cancelled 01/29/2018 Care Plan: Cbc With Differential Cancelled 01/29/2018 Care Plan: %Hba1C LOINC : 79133-3 Cancelled 01/29/2018 Care Plan: Referral Order SNOMED-CT : [id number] Cancelled 01/29/2018 Visit Plan: Fatigue, malaise, joint [...] or concerns. 08/27/2017 Appointment: [phone] (15 min) Moderate 08/27/2017 Patient Education: [...] - 08/16/2017 Appointment: [phone] (30 min) Complex 08/16/2017 Patient Education: Patient Medication Summary Completed 08/16/2017 Patient Education: Obesity Completed 08/16/2017 [facility]ment: [phone] ([place] min) Complex 08/07/2017 Visit Plan: [...] considered contagious. 07/26/2017 Appointment: Madeline Kennedy WPtel: [facility] (15 min) Moderate 07/26/2017 Patient Education: Patient Medication Summary Completed 07/26/2017 Visit Plan: Cellulitis right foot-cultured today in the office-home health to reapply wound vac--appt with wound care on to evaluate for debridement- 07/03/2017 Appointment: Marcela Oshea WPtel: [phone] (30 min) Complex 07/03/2017 Patient Education: Patient Medication Summary Completed 07/03/2017 Visit Plan: Abrasion left arm - Pt was instructed to keep the wound clean, wash with antibacterial soap, use triple antibiotic ointment, call if redness, pustular drainage, or any other acute concerns. 06/29/2017 Appointment: Marcela Oshea WPtel: [phone] (15 min) Moderate 06/29/2017 Patient Education: Patient [...] of plan. 06/18/2017 Appointment: Marcela Oshea WPtel: [phone] (15 min) Moderate 06/18/2017 Patient Education: Patient [...] diet-start prilosec 06/07/2017 Appointment: Marcela Oshea WPtel: [address] [place], [place] [phone] (10 min) Simple 06/07/2017 Patient Education: Patient [...] control. Tick bite-continue doxycycline 05/17/2017 Appointment: Marcela sOhea WPtel: [phone] (30 min) Complex 05/17/2017 Patient Education: Patient [...] goo called into [facility]. 05/04/2017 Appointment: Marcela Oshea WPtel: [phone] [place] (30 min) Complex 05/04/2017 Patient Education: [...] home. Cough-resolved 03/15/2017 Appointment: Marcela Oshea WPtel: [facility] [place] [phone] (15 min) Moderate 03/15/2017 Patient Education: Patient Medication Summary Completed 03/15/2017 Appointment: Marcela Oshea WPtel: [phone] [place] [phone] (30 min) Complex 03/12/2017 Visit Plan: Feng [...] as discussed 02/16/2017 Appointment: Marcela Oshea WPtel: [phone] (15 min) Moderate 02/16/2017 Patient Education: Patient [...] less controlled. 02/12/2017 Appointment: Marcela Oshea WPtel: [phone] (30 min) Complex 02/12/2017 Patient Education: Patient Medication Summary Completed 02/12/2017 Appointment: Marcel[facility]Ptel[phone] (30 min) Complex 02/06/2017 Visit Plan: [...] will consider 02/05/2017 Appointment: Marcela Oshea WPtel: [phone] (30 min) Complex 02/05/2017 Patient Education: Patient Medication Summary Completed 02/05/2017 Appointment: Marcel[facility] Oshea [facility]Ptel[phone] (30 min) Complex 01/30/2017 Visit Plan: Acute confusion-uncontrolled diabetes- chronically noncompliant with treatment and stopped his insulin several months ago-r/o stroke vs DKA-Dr Ha in to evaluate patient-plan to admit for further work up and treatment-patient's called and she transported him to the hospital 01/29/2017 Appointment: Marcela Oshea WPtel[phone] (30 min) Complex 01/29/2017 Patient Education: Patient Medication Summary Completed 01/29/2017 Patient Education: Obesity Completed 01/29/2017 Visit Plan: Right foot pain-MRI shows foreign body-appt with Dr Grewal for evaluation on Sunday. 10/13/2016 Appointment: Marcela Oshea WPtel: [phone] [place] (15 min) Moderate 10/13/2016 Patient Education: Patient Medication Summary Completed 10/13/2016 Appointment: Marcela Oshea WPtel: [address] [place], [place] [phone] [place] (30 min) Complex 10/12/2016 Visit Plan: Right foot laxm-afobiwhq-vauzn washer dropped on foot-xray negative but pain continues to increase-recommend MRI of foot for further evaluation-refer to wound care for lesions on right foot, patient has diabetes and history of osteomyelitis-culture obtained today-continue oral abx- follow up in the office on , sooner if needed 10/09/2016 Visit Plan: Right foot wmhs-rzxjjxml-rhlzq washer dropped on foot-xray negative but pain continues to increase-recommend MRI of foot for further evaluation-refer to wound care for lesions on right foot, patient has diabetes and history of osteomyelitis-culture obtained today-continue oral abx- follow up in the office on , sooner if needed 10/09/2016 Visit Plan: Right foot lkbu-yrfspwpu-oaeoh washer dropped on foot-xray negative but pain continues to increase-recommend MRI of foot for further evaluation-refer to wound care for lesions on right foot, patient has diabetes and history of osteomyelitis-culture obtained today-continue oral abx- follow up in the office on , sooner if needed 10/09/2016 Appointment: Marcela Oshea WPtel: [address] [place], [place] [phone] [place] (30 min) Complex 10/09/2016 Patient Education: Patient Medication Summary Completed 10/09/2016 Visit Plan: Cellulitis - continue with oral antibiotics as previously directed, return to clinic as previously directed, call for acute change in symptoms, worsening redness, warmth, discharge. 10/06/2016 Appointment: Marcela Oshea WPtel: [address] [place], [place] [phone] [place] (10 min) Simple 10/06/2016 Patient Education: Patient Medication Summary Completed 10/06/2016 Appointment: Marcela Oshea WPtel: [address] [place], [place] [phone] [place] (30 min) Complex 08/24/2016 Referral: Sun Glynn Referral Completed 07/21/2016 Visit Plan: Low back pain- history of spinal fusion- patient for xray lumbar spine-RX sent to [facility] and instructed on use-topical voltaren samples provided and instructed on use. Ok to use tylenol as needed as well. The patient is to call the office if the pain is worsening or does not improve. Pressure ulcer left 4th toe-refer to Dr Glynn for evaluation 07/18/2016 Appointment: Marcela Oshea WPtel: [phone] [phone] [place] (30 min) Complex 07/18/2016 Patient Education: Patient Medication Summary Completed 07/18/2016 Patient Education: Obesity Completed 07/18/2016 Care Plan: Referral Order SNOMED-CT : [id number] Cancelled 07/18/2016 Visit Plan: Diabetes Mellitus - [...] glucose control. 06/22/2016 Appointment: Marcela Oshea WPtel: [phone] [phone] (30 min) Complex 06/22/2016 Patient Education: Patient [...] CBC today 05/23/2016 Appointment: [phone] (30 min) Complex 05/23/2016 Patient Education: [...] plan. 05/15/2016 App[facility]ment: [phone] (15 min) Moderate 05/15/2016 Patient Education: [...] Sun Glynn Referral Appointment Requested Instructions Comment continue oral antibiotic start using topical antibiotic ointment to scabbed areas and cover with dressing follow up , sooner if needed refer to wound care mri left foot due to increased pain -concern for fracture from injury . Right foot kwnu-mdefpupy-klsqp washer dropped on foot-xray negative but pain [...] for fracture from injury . Right foot qoqe-ovockdod-bylyy washer dropped on foot-xray negative but pain [...] readings are starting to become less controlled. Zymlvujqc-bdulsgll-igbzoejd to monitor Generalized weakness-refer for PT-patient refuses [...] allow for greater blood glucose control. Joint hnpk-ftauttkk-thprfts-symptoms have improved -stop meloxicam due to upset [...] you want blue rosieo called into [facility]. . Hypertension - well controlled - [...] readings at home. 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 Low back pain- history of spinal fusion-patient for xray lumbar spine-[facility] and instructed on use-topical voltaren [...] for fracture from injury . Right foot foeu-omizbisd-idzhd washer dropped on foot-xray negative but pain [...] or if they worsen. . Bilateral hip dbld-jxtlawar-zjpjwev IM injection administered today for c/o continued [...] blood sugars-patient sent for labs today HTN-low bhhzm-rvcszvp-uaddh labs Callus of foot and fissue of [...]
--- NOTE | 2019-01-01 14:20 | ED Chest Pain ---
General Chief Complaint: Chest Pain Stated Complaint: CHEST PAIN Nursing Triage Note: PT CO OF CHEST PAIN STATES STARTED SUNDAY HAS SEEN DR HA AND DR TERRY FOR CHEST PAIN. RATES 7/10 Nursing Sepsis Screen: No Definite Risk Source: patient Exam Limitations: no limitations History of Present Illness Date Seen by Provider: Jan 01, 2019 Time Seen by Provider: 12:42 Initial Comments 58-year-old male who presents to the emergency room with complaints of chest pain that started 6 days ago. At that time he was was seen in Dr. Ha's office where he had outpatient EKG and laboratory studies done. He was seen and evaluated at Dr. Brennan's office this morning for his recurrent chest pain and was instructed to go home and take 3 nitroglycerin sublinguals in five-minute intervals and if his pain did not improve go to the emergency room. He is rating his chest pain is 7 out of 10 on arrival to the emergency room. He denies shortness of breath, lightheadedness, dizziness. He does report nausea. 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 MECHANIC ELEVATORS: Yes Associated Symptoms: nausea/vomiting Allergies and Home Medications Allergies Coded Allergies: linezolid (Verified Allergy, Unknown, 05/28/18) Home Medications Aspirin 81 Mg Tablet., 81 MG PO DAILY Prescribed by: ROSA MARIA HA on 05/31/18 1042 Atorvastatin Calcium 80 Mg Tablet, 80 MG PO HS Prescribed by: ROSA MARIA HA on 05/31/18 1042 Carvedilol 6.25 Mg Tablet, 6.25 MG PO BID Prescribed by: ROSA MARIA HA on 05/31/18 1042 Cefepime HCl/D5w 2 Gm/50 Ml Piggyback, 2 GM IV BID LAST DOSE DUE ON 06/07/18 Prescribed by: RED ABREU on 05/30/18 1435 Cephalexin 500 Mg Capsule, 500 MG PO Q6H Prescribed by: EARNEST MULLINS on 10/20/18 1305 Clonazepam 1 Mg Tablet, 2 MG PO HS, (Reported) TAKES 2 (1 MG) TABLETS Duloxetine HCl 30 Mg Capsule.dr, 30 MG PO DAILY, (Reported) Insulin Aspart 100 Unit/1 Ml Susp, 10 UNIT SQ AC Prescribed by: ROSA MARIA HA on 05/31/18 1042 Insulin Glargine,Hum.rec.anlog 300 Unit/1 Ml Insuln.pen, 50 UNIT SQ DAILY, ( Reported) Metronidazole 500 Mg Tablet, 500 MG PO TID Prescribed by: ROSA MARIA HA on 05/31/18 1050 Metronidazole/Sodium Chloride 500 Mg/100 Ml Piggyback, 500 MG IV Q8HR LAST DOSE DUE ON 06/07/18 Prescribed by: RED ABREU on 05/30/18 1435 Pregabalin 50 Mg Capsule, 50 MG PO DAILY, (Reported) Ticagrelor 90 Mg Tablet, 90 MG PO BID Prescribed by: ROSA MARIA HA on 05/31/18 1042 Vancomycin HCl in Dextrose 5 % 1.25 Gm/250 Ml Plast..bag, 1.25 GM IV BID LAST DOSE DUE ON 06/07/18 Prescribed by: RED ABREU on 05/30/18 1435 Patient Home Medication List Home Medication List Reviewed: Yes Review of Systems Review of Systems Constitutional: see HPI; No chills, No fever Cardiovascular: See HPI, Chest Pain Gastrointestinal: See HPI, Nausea All Other Systems Reviewed Negative Unless Noted: Yes Past Qfnimxg-Azeepj-Wmbbgz Hx Past Med/Social Hx: Reviewed Nursing Past Med/Soc Hx Patient Social History Alcohol Use: Denies Use Recreational Drug Use: No Smoking Status: Never a Smoker 2nd Hand Smoke Exposure: No Recent Foreign Travel: No Contact w/Someone Who Travel: No Recent Infectious Disease Expo: No Recent Hopitalizations: No (MAY 2018) Immunizations Up To Date Tetanus Booster (TDap): Unknown PED Vaccines UTD: No Date of Pneumonia Vaccine: Jan 02, 2011 Date of Influenza Vaccine: Aug 05, 2013 Seasonal Allergies Seasonal Allergies: No Past Medical History Surgeries: Yes (ACL; Wrist; Heart stents) Abdominal, Amputation, Appendectomy, Gallbladder, Orthopedic, Tonsillectomy Respiratory: No Currently Using CPAP: No Currently Using BIPAP: No Cardiac: Yes (Heart stents) Coronary Artery Disease, Heart Attack, High Cholesterol, Hypertension Neurological: Yes Neuropathy, Stroke Reproductive Disorders: No Sexually Transmitted Disease: No HIV/AIDS: No Genitourinary: No Kidney Stones Gastrointestinal: Yes Abdominal Hernia Musculoskeletal: Yes (OSTEOMYELITIS WITH MULTIPLE TOE AMPUTATIONS, BACK FUSION X3) Degenerate Disk Disease, Arthritis, Chronic Back Pain Endocrine: Yes Diabetes, Insulin dep HEENT: No Loss of Vision: Bilateral Hearing Impairment: Denies Cancer: No Psychosocial: Yes Anxiety, Depression Integumentary: No Blood Disorders: No Adverse Reaction/Blood Tranf: No Family Medical History Reviewed Nursing Family Hx Family history: Cardiovascular disease 19 FATHER Family history: Diabetes mellitus 19 MOTHER Heart Disease, Diabetes, Hypertension, Psychiatric Problems, Renal Disease, Vascular Disease Physical Exam Vital Signs Vital Signs - First Documented 01/01/19 12:41 Temp 97.2 Pulse 91 Resp 18 B/P (MAP) 115/77 (90) Pulse Ox 99 O2 Delivery Room Air Capillary Refill : Less Than 3 Seconds Height, Weight, BMI Height: 6'4.00" Weight: 260lbs. 0.0oz. 117.070262gz; 31.5 BMI Method:Stated General Appearance: No Apparent Distress, WD/WN HEENT: PERRL/EOMI, TMs Normal, Normal ENT Inspection, Pharynx Normal Respiratory: Chest Non Tender, Lungs Clear, Normal Breath Sounds, No Accessory Muscle Use, No Respiratory Distress Cardiovascular: Regular Rate, Rhythm, No Edema, No Gallop, No JVD, No Murmur, Normal Peripheral Pulses Gastrointestinal: Normal Bowel Sounds, No Organomegaly, No Pulsatile Mass, Non Tender, Soft Extremity: Normal Capillary Refill, No Calf Tenderness, No Pedal Edema Neurologic/Psychiatric: Alert, Oriented x3 Skin: Normal Color, Warm/Dry Progress/Results/Core Measures Results/Orders Lab Results Laboratory Tests Test 01/01/19 12:50 Range/Units White Blood Count 9.6 4.3-11.0 10^3/uL Red Blood Count 4.42 4.35-5.85 10^6/uL Hemoglobin 13.6 13.3-17.7 G/DL Hematocrit 40 40-54 % Mean Corpuscular Volume 90 80-99 FL Mean Corpuscular Hemoglobin 31 25-34 PG Mean Corpuscular Hemoglobin Concent 34 32-36 G/DL Red Cell Distribution Width 12.7 10.0-14.5 % Platelet Count 192 130-400 10^3/uL Mean Platelet Volume 10.5 H 7.4-10.4 FL Neutrophils (%) (Auto) 65 42-75 % Lymphocytes (%) (Auto) 22 12-44 % Monocytes (%) (Auto) 12 0-12 % Eosinophils (%) (Auto) 1 0-10 % Basophils (%) (Auto) 0 0-10 % Neutrophils # (Auto) 6.3 1.8-7.8 X 10^3 Lymphocytes # (Auto) 2.1 1.0-4.0 X 10^3 Monocytes # (Auto) 1.1 H 0.0-1.0 X 10^3 Eosinophils # (Auto) 0.1 0.0-0.3 10^3/uL Basophils # (Auto) 0.0 0.0-0.1 10^3/uL Prothrombin Time 13.0 12.2-14.7 SEC INR Comment 1.0 0.8-1.4 Activated Partial Thromboplast Time 35 24-35 SEC D-Dimer 3.06 H 0.00-0.49 UG/ML Sodium Level 139 135-145 MMOL/L Potassium Level 4.5 3.6-5.0 MMOL/L Chloride Level 103 98-107 MMOL/L Carbon Dioxide Level 25 21-32 MMOL/L Anion Gap 11 5-14 MMOL/L Blood Urea Nitrogen 24 H 7-18 MG/DL Creatinine 1.20 0.60-1.30 MG/DL Estimat Glomerular Filtration Rate > 60 BUN/Creatinine Ratio 20 Glucose Level 147 H 70-105 MG/DL Calcium Level 9.6 8.5-10.1 MG/DL Corrected Calcium 9.8 8.5-10.1 MG/DL Magnesium Level 1.6 L 1.8-2.4 MG/DL Total Bilirubin 2.2 H 0.1-1.0 MG/DL Aspartate Amino Transf (AST/SGOT) 20 5-34 U/L Alanine Aminotransferase (ALT/SGPT) 21 0-55 U/L Alkaline Phosphatase 109 40-136 U/L Myoglobin 125.2 H 10.0-92.0 NG/ML Troponin I < 0.028 <0.028 NG/ML B-Type Natriuretic Peptide 84.5 <100.0 PG/ML Total Protein 7.4 6.4-8.2 GM/DL Albumin 3.8 3.2-4.5 GM/DL Amylase Level 27 25-125 U/L Lipase 35 8-78 U/L My Orders Orders - EARNEST MULLINS Cbc With Automated Diff (01/01/19 12:42) Magnesium (01/01/19 12:42) Ekg Tracing (01/01/19 12:42) Cardiac Profile 1 (01/01/19 12:42) Comprehensive Metabolic Panel (01/01/19 12:42) Myoglobin Serum (01/01/19 12:42) Protime With Inr (01/01/19 12:42) Partial Thromboplastin Time (01/01/19 12:42) O2 (01/01/19 12:42) Monitor-Rhythm Ecg Trace Only (01/01/19 12:42) Lipid Panel (01/02/19 06:00) Saline Lock/Iv-Start (01/01/19 12:42) Lipase (01/01/19 12:42) Amylase (01/01/19 12:42) BNP (01/01/19 12:42) Fibrin Degradation Products (01/01/19 12:42) Aspirin Chewable Tablet (Baby Aspirin Ch (01/01/19 12:54) Morphine Injection (Morphine Injection (01/01/19 13:30) Morphine Injection (Morphine Injection (01/01/19 13:19) Chest 1 View, Ap/Pa Only (01/01/19 13:26) Ct Angio Chest W (01/01/19 13:44) Iohexol Injection (Omnipaque 350 Mg/Ml 1 (01/01/19 14:00) Contrast Received (Contrast Received) (01/01/19 14:00) Ns (Ivpb) (Sodium Chloride 0.9% Ivpb Bag (01/01/19 14:00) Ondansetron Injection (Zofran Injectio (01/01/19 14:15) Diphenhydramine Injection (Benadryl Inje (01/01/19 14:23) Famotidine Injection (Pepcid Injection) (01/01/19 14:23) Medications Given in ED Current Medications Medications Dose Ordered Sig/Aylin Route Start Time Stop Time Status Last Admin Dose Admin Aspirin 81 mg STK-MED ONCE .ROUTE 01/01/19 12:54 01/01/19 12:57 DC 01/01/19 12:59 243 MG Iohexol 150 ml ONCE ONCE IV 01/01/19 14:00 01/01/19 14:11 DC 01/01/19 13:58 140 ML Morphine Sulfate 2 mg ONCE ONCE IVP 01/01/19 13:30 01/01/19 13:31 DC 01/01/19 13:23 2 MG Sodium Chloride 100 ml ONCE ONCE IV 01/01/19 14:00 01/01/19 14:11 DC 01/01/19 13:58 80 ML Vital Signs/I&O 01/01/19 01/01/19 12:41 12:41 Temp 97.2 Pulse 91 Resp 18 B/P (MAP) 115/77 (90) Pulse Ox 99 O2 Delivery Room Air Blood Pressure Mean: 90 Progress Progress Note : Time: 13:44 Progress Note I have seen and evaluated the patient. I've discussed his laboratory findings with him and the need for a CT angios of his chest to rule out pulmonary embolism. He agrees with plans for CT scan. 1500: I have discussed the case with Dr. Ha and Dr. Brennan and they agreed to admit the patient to their services. Dr. Brennan and would like a echocardiogram today and plan for a heart cath in the morning. The patient agrees with plans for admission. Initial ECG Impression Date: Jan 01, 2019 Initial ECG Impression Time: 12:42 Initial ECG Rate: 90 Initial ECG Rhythm: Normal Sinus Initial ECG Comparisson: Unchanged Comment EKG was reviewed by Dr. Brennan Diagnostic Imaging Diagonstic Imaging: Xray, CT Plain Films/CT/US/NM/MRI: chest Comments NAME: LUIS BARRERA [facility] REC#: [id number] PT STATUS: REG ER : 1960 PHYSICIAN: EARNEST MULLINS ADMIT DATE: 01/01/19/ER Draft Date of Exam:01/01/19 CHEST 1 VIEW, AP/PA ONLY EXAMINATION: Portable erect AP chest at 1:26 PM. INDICATION: Chest pain. FINDINGS: Allowing for the portable technique of this exam, the heart size is within normal limits and stable when compared to 11/07/2018. The lungs are generally clear. There is still no sign of failure, pneumonia, or pleural effusion. The mediastinum is not widened. The osseous structures are intact. IMPRESSION: Stable chest. There has been no adverse change since the prior exam. Dictated on workstation # [id number] Dict: 01/01/19 1346 Trans: 01/01/19 1356 [id number] Interpreted by: MOE MEHTA MD Electronically signed by: NAME: LUIS BARRERA [facility] REC#: [id number] PT STATUS: REG ER : 1960 PHYSICIAN: EARNEST MULLINS ADMIT DATE: 01/01/19/ER Signed Date of Exam:01/01/19 CT ANGIO CHEST W PROCEDURE: CT angiography of the chest with contrast. TECHNIQUE: Multiple contiguous axial images were obtained through the chest after uneventful bolus administration of intravenous contrast. 2D reconstructed CTA MIP acquisitions were also performed. INDICATION: Chest pain. FINDINGS: The previous CT chest exam of 11/14/2018 failed to show any sign of an acute cardiopulmonary abnormality. On this study however, there is now approximately 1 cm pericardial effusion. The heart size itself has not changed significantly, but the heart does seem to be borderline enlarged. Dense coronary artery calcifications involving the distal LAD are again noted. There is no defect within the pulmonary arteries to indicate a pulmonary mass and there is no sign of aneurysm of the aorta or of dissection. The lungs remain generally clear. There is no evidence for failure, pneumonia or for pleural effusion. There is no mediastinal or hilar adenopathy. The thyroid gland was visualized as unremarkable. The sections through the upper abdomen fail to show any sign of an acute abnormality. The bone windows are unremarkable for fracture or for destructive lesion. IMPRESSION: 1. In the interval since the prior exam, pericardial effusion has developed. The heart itself may be slightly larger than noted previously. Coronary artery calcifications are again noted. 2. There is no acute cardiopulmonary abnormality identified otherwise. 3. These results were discussed with YAIR Chopra. Dictated by: Dictated on workstation # [id number] Dict: 01/01/19 1422 Trans: 01/01/[address] [facility] [id number] Interpreted by: MOE MEHTA MD Electronically signed by: MOE MEHTA MD 01/01/19 1526 Reviewed: Reviewed by Ga Departure Communication (Admissions) Time/Spoke to Admitting Phy: 15:00 Dr. Ha. Time/Spoke to Consulting Phy: 15:00 Dr. Brennan Impression Primary Impression: Chest pain Additional Impression: Pericardial effusion Disposition: ADMITTED INPATIENT Condition: Stable/Unchanged Admissions Decision to Admit Reason: Admit from ER (General) Decision to Admit/Date: Jan 01, 2019 Time/Decision to Admit Time: 15:15 Departure-Patient Inst. Referrals: ROSA MARIA HA MD (PCP/Family) Primary Care Physician EARNEST MULLINS Jan 01, 2019 14:20
--- OUTSIDE RECORDS SUMMARY | 2019-01-01 14:20 | XMS REPORT | CCD ---
Author Author Madeline Kennedy MD, [facility] Address [address] [place] [address] Phone Care Team Providers Care Box Toe Buffer Name Role Phone PP Unavailable CCM Unavailable Summary Purpose Interface Exchange Insurance Providers Payer name Policy type / Coverage type Covered democrat ID Effective Begin Date Effective End Date [place] [employer] Commercial Insurance [id number] Unknown Family history Father Diagnosis Age At Onset Hyperlipidemia Unknown Heart Attack Unknown Mother Diagnosis Age At Onset Hypertension Unknown Social History Social History Element Codes Description Effective Dates Marital status Unknown Mignon 01/20/2016 Number of children Unknown 4 01/20/2016 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/[address]: 226895481 Never smoker 01/20/[address]: 637741938 Never drinks alcohol 01/20/2016 Allergies, Adverse Reactions, Alerts Substance Reaction Codes Entered Date Inactivated Date Status * NO KNOWN DRUG ALLERGIES Unknown 05/23/2016 No Inactive Date Active Past Medical History Illness Codes Condition Status Onset Date Resolved Date Cough ICD-9: 786.2 ICD-10: R05 Active 02/16/2017 Unknown Pneumonia due to other Gram-negative bacteria [...] Cough ICD-9: 786.2 ICD-10: R05 02/16/2017 Active Pneumonia due to other Gram-negative bacteria [...] Instructions Augmentin 500 mg-125 mg tablet RxNorm: 149897 1 Tablet(s) PO TID 12/26/2018 01/04/2019 Active Augmentin 500 mg-125 mg tablet RxNorm: 613629 1 Tablet(s) PO TID 12/26/2018 12/25/2018 Inactive ProAir HFA 90 mcg/actuation aerosol inhaler RxNorm: 5978927 2 Puff(s) INH QID as needed 11/18/2018 No Stop Date Active Lyrica 50 mg capsule RxNorm: 196142 Capsule(s) PO daily 201802/08/2019 Active Cymbalta 30 mg capsule,delayed release RxNorm: 074551 1 Capsule(s) PO QAM 11/13/2018 06/10/2019 Active Lyrica 50 mg capsule RxNorm: 307391 Capsule(s) PO daily 201811/12/2018 Inactive Symbicort 160 mcg-4.5 mcg/actuation HFA aerosol inhaler RxNorm: 9016289 2 Puff(s) INH BID 11/12/2018 12/11/2018 Inactive albuterol sulfate 2.5 mg/3 mL (0.083 %) solution for nebulization RxNorm: 382263 3 Milliliter(s) INH UD 11/07/2018 No Stop Date Active azithromycin 500 mg tablet RxNorm: 289905 500mg on day 1 then 250 mg daily x 4 more day Tablet(s) PO 11/07/20182018 Inactive 500mg on day 1 and then 250mg daily 2-4 azithromycin 500 mg tablet RxNorm: 124920 500mg on day 1 then 250 mg daily x 4 more day Tablet(s) PO 11/07/20182018 Inactive 500mg on day 1 and then 250mg daily 2-4 cefdinir 300 mg capsule RxNorm: 454342 1 Capsule(s) PO BID 01/201911/06/2018 Inactive cefdinir 300 mg capsule RxNorm: 066420 1 Capsule(s) PO BID 01/201911/13/2018 Inactive Levaquin 500 mg tablet RxNorm: 360042 1 Tablet(s) PO daily TAKE ONE TABLET BY MOUTH DAILY UNTIL GONE 10/31/20182018 Inactive Levaquin 500 mg tablet RxNorm: 099832 1 Tablet(s) PO daily 11/12/2018 Inactive valsartan 80 mg tablet RxNorm: 156165 1/2 Tablet(s) PO daily 04/20/2019 Active doxycycline hyclate 100 mg tablet RxNorm: 5217896 1 Tablet(s) PO BID 10/21/2018 10/27/2018 Inactive ketorolac 60 mg/2 mL intramuscular solution RxNorm: 3207340 Milliliter(s) IM 10/21/2018 10/21/2018 Inactive Levaquin 500 mg tablet RxNorm: 340910 1 Tablet(s) PO daily 10/31/2018 Inactive Tessalon Perles 100 mg capsule RxNorm: 533701 1-2 Capsule(s) PO TID PRN 10/14/2018 No Stop Date Active albuterol sulfate 2.5 mg/3 mL (0.083 %) solution for nebulization RxNorm: 994912 3 Milliliter(s) INH UD 10/14/201812/2018 Inactive Levaquin 500 mg tablet RxNorm: 458537 1 Tablet(s) PO daily 08/201810/16/2018 Inactive Coreg 6.25 mg tablet RxNorm: 497957 TAKE ONE TABLET BY MOUTH TWICE A DAY 09/30/2018 03/28/2019 Active albuterol sulfate 2.5 mg/3 mL (0.083 %) solution for nebulization RxNorm: 403961 3 Milliliter(s) INH UD 09/30/201807/2018 Inactive Kenalog 40 mg/mL suspension for injection RxNorm: 4675504 1.5 Milliliter(s) Inj 09/30/2018 09/30/2018 Inactive Keflex 500 mg capsule RxNorm: 209848 1 Capsule(s) PO TID 201710/03/2018 Inactive prednisone 20 mg tablet RxNorm: 905244 2 Tablet(s) PO daily 09/29/2018 Inactive Kenalog 40 mg/mL suspension for injection RxNorm: 6697716 Milliliter(s) Inj 09/11/2018 09/11/2018 Inactive Zyrtec 10 mg tablet RxNorm: 4964296 1 Tablet(s) PO daily 09/0910/08/2018 Inactive Keflex 500 mg capsule RxNorm: 861324 1 Capsule(s) PO TID 201709/15/2018 Inactive Tresiba FlexTouch U-200 insulin 200 unit/mL (3 mL) subcutaneous pen RxNorm: 0542460 50 Unit(s) SQ daily 08/30/2018 08/29/2018 Inactive please give him 30 day supply Tresiba FlexTouch U-200 insulin 200 unit/mL (3 mL) subcutaneous pen RxNorm: 6516525 50 Unit(s) SQ daily 08/30/2018 09/28/2018 Inactive please give him 30 day supply Novolog Flexpen U-100 Insulin aspart 100 unit/mL subcutaneous RxNorm: 5108605 8 Unit(s) SQ AC 08/13/2018 No Stop Date Active Novolog Flexpen U-100 Insulin aspart 100 unit/mL subcutaneous RxNorm: 3772577 8 Unit(s) SQ AC 07/22/20182017 Inactive this is an update on his medication Novolog Flexpen U-100 Insulin aspart 100 unit/mL subcutaneous RxNorm: 0073157 12 Unit(s) SQ AC 07/05/20182017 Inactive this is an update on his medication Toujeo SoloStar U-300 Insulin 300 unit/mL (1.5 mL) subcutaneous pen RxNorm: 0884128 INJECT 50 UNITS UNDER THE SKIN DAILY 07/01/2018 08/29/2018 Inactive Mucinex 600 mg tablet, extended release RxNorm: 919392 1 Tablet(s) PO BID 06/28/2018 07/04/2018 Inactive Zofran 4 mg tablet RxNorm: 579035 1 Tablet(s) PO TID as needed nausea 06/28/2018 07/02/2018 Inactive Kenalog 40 mg/mL suspension for injection RxNorm: 9256146 Milliliter(s) Inj 06/28/2018 06/28/2018 Inactive Flonase Allergy Relief 50 mcg/actuation nasal spray, suspension RxNorm: 4957156 1 [place] NASAL BID 06/28/20182017 Inactive Lyrica 50 mg capsule RxNorm: 189696 Capsule(s) PO daily 201707/06/2018 Inactive Novolog Flexpen U-100 Insulin aspart 100 unit/mL subcutaneous RxNorm: 1373264 10 Unit(s) SQ AC 06/18/20182017 Inactive this is an update on his medication Lasix 20 mg tablet RxNorm: 413509 1 Tablet(s) PO BIW 201707/02/2018 Inactive atorvastatin 80 mg tablet RxNorm: 890535 1 Tablet(s) PO QHS 04/201812/06/2018 Inactive clonazepam 1 mg tablet RxNorm: 257955 2 Tablet(s) PO HS 201706/04/2019 Active clonazepam 1 mg tablet RxNorm: 626074 2 Tablet(s) PO HS as needed 06/10/2018 06/09/2018 Inactive Lyrica 50 mg capsule RxNorm: 964384 Capsule(s) PO daily 201707/08/2018 Inactive Lasix 20 mg tablet RxNorm: 555756 1 Tablet(s) PO TIW 201706/11/2018 Inactive Toujeo SoloStar U-300 Insulin 300 unit/mL (1.5 mL) subcutaneous pen RxNorm: 6943582 50 Unit(s) SQ daily 05/07/2018 06/30/2018 Inactive meloxicam 15 mg tablet RxNorm: 354394 15 Milligram(s) PO daily 05/02/2018 05/12/2018 Inactive ketorolac 30 mg/mL injection solution RxNorm: 013181 2 Milliliter(s) Inj 05/02/2018 05/02/2018 Inactive Toujeo SoloStar U-300 Insulin 300 unit/mL (1.5 mL) subcutaneous pen RxNorm: 5461364 45 Unit(s) daily 04/29/2018 Inactive clonazepam 1 mg tablet RxNorm: 530422 1 Tablet(s) PO Q8 as needed 04/29/2018 06/09/2018 Inactive doxycycline hyclate 100 mg tablet RxNorm: 6995410 1 Tablet(s) PO BID 04/29/2018 05/12/2018 Inactive Cymbalta 30 mg capsule,delayed release RxNorm: 230503 1 Capsule(s) PO QAM 03/13/2018 10/08/2018 Inactive Lexapro 10 mg tablet RxNorm: 622904 1 Tablet(s) PO QPM 201703/03/2018 Inactive Toujeo SoloStar U-300 Insulin 300 unit/mL (1.5 mL) subcutaneous pen RxNorm: 0760872 20 Unit(s) daily 02/28/2018 Inactive Protonix 40 mg tablet,delayed release RxNorm: 685186 1 Tablet(s) PO daily 01/29/2018 06/09/2018 Inactive clonazepam 1 mg tablet RxNorm: 490141 1 Tablet(s) PO Q8 as needed 12/12/2017 03/10/2018 Inactive Tamiflu 75 mg capsule RxNorm: 669727 1 Capsule(s) PO BID 201712/03/2017 Inactive doxycycline hyclate 100 mg capsule RxNorm: 5255756 1 Capsule(s) PO BID 09/07/2017 09/20/2017 Inactive doxycycline hyclate 100 mg capsule RxNorm: 9081359 1 Capsule(s) PO BID 08/27/2017 09/06/2017 Inactive prednisone 20 mg tablet RxNorm: 296280 2 Tablet(s) PO daily 08/31/2017 Inactive clopidogrel 75 mg tablet RxNorm: 669706 1 Tablet(s) PO daily 06/09/2018 Inactive atorvastatin 40 mg tablet RxNorm: 538021 1 Tablet(s) PO QHS 02/27/2018 Inactive losartan 25 mg tablet RxNorm: 993838 TAKE ONE TABLET BY MOUTH DAILY 08/22/2017 06/09/2018 Inactive Toujeo SoloStar 300 unit/mL (1.5 mL) subcutaneous insulin pen RxNorm: 1381371 45 Unit(s) daily 08/17/2017 08/20/2017 Inactive mupirocin 2 % topical ointment RxNorm: 269066 1 Application TOP TID to the lesions on chest 08/16/2017 08/25/2017 Inactive Toujeo SoloStar 300 unit/mL (1.5 mL) subcutaneous insulin pen RxNorm: 5539599 40 Unit(s) daily 08/16/2017 08/16/2017 Inactive valacyclovir 1 gram tablet RxNorm: 768880 1 Tablet(s) PO TID 08/01/2017 Inactive clonazepam 1 mg tablet RxNorm: 292533 1 Tablet(s) PO Q8 as needed 07/03/2017 09/30/2017 Inactive Levaquin 500 mg tablet RxNorm: 099642 1 Tablet(s) PO daily 06/25/2017 Inactive Levaquin 500 mg tablet RxNorm: 673174 1 Tablet(s) PO daily 06/21/2017 Inactive losartan 25 mg tablet RxNorm: 374397 1 Tablet(s) PO daily 201608/16/2017 Inactive nystatin 100,000 unit/mL oral suspension RxNorm: 153465 5 Milliliter(s) PO QID Swish et swallow 06/18/2017 06/17/2017 Inactive nystatin 100,000 unit/mL oral suspension RxNorm: 550170 5 Milliliter(s) PO QID Swish et swallow 06/18/2017 06/27/2017 Inactive Cipro 500 mg tablet RxNorm: 210069 1 Tablet(s) PO BID 201606/18/2017 Inactive Cipro 500 mg tablet RxNorm: 340560 1 Tablet(s) PO BID 201606/11/2017 Inactive Toujeo SoloStar 300 unit/mL (1.5 mL) subcutaneous insulin pen RxNorm: 5512860 INJECT 10 UNITS UNDER THE SKIN DAILY 06/12/2017 08/15/2017 Inactive Keflex 500 mg capsule RxNorm: 751336 1 Capsule(s) PO TID 201606/13/2017 Inactive doxycycline hyclate 100 mg capsule RxNorm: 6888029 1 Capsule(s) PO BID 05/17/2017 05/21/2017 Inactive doxycycline hyclate 100 mg capsule RxNorm: 6733593 1 Capsule(s) PO BID 05/11/2017 05/16/2017 Inactive losartan 25 mg tablet RxNorm: 158522 1 Tablet(s) PO daily 201606/17/2017 Inactive atorvastatin 40 mg tablet RxNorm: 852344 1 Tablet(s) PO daily 03/01/2017 08/23/2017 Inactive clopidogrel 75 mg tablet RxNorm: 385287 1 Tablet(s) PO daily 08/23/2017 Inactive Flonase Allergy Relief 50 mcg/actuation nasal spray, suspension RxNorm: 3106952 2 [place] NASAL daily 02/16/20172016 Inactive Augmentin 875 mg-125 mg tablet RxNorm: 642022 1 Tablet(s) PO BID 02/16/2017 02/22/2017 Inactive GET PROBIOTIC TO TAKE WHILE ON ABX Tamiflu 75 mg capsule RxNorm: 782127 1 Capsule(s) PO BID 201602/20/2017 Inactive ceftriaxone 500 mg solution for injection RxNorm: 8786318 1 Milliliter(s) Inj 02/16/2017 02/16/2017 Inactive Kenalog 40 mg/mL suspension for injection RxNorm: 9027769 1 Milliliter(s) Inj 02/16/2017 02/16/2017 Inactive Toujeo SoloStar 300 unit/mL (1.5 mL) subcutaneous insulin pen RxNorm: 4838111 25 Unit(s) SQ QAM 02/12/2017 06/10/2017 Inactive Toujeo SoloStar 300 unit/mL (1.5 mL) subcutaneous insulin pen RxNorm: 7445485 10 Unit(s) SQ QAM 02/05/2017 02/11/2017 Inactive lisinopril 10 mg tablet RxNorm: 405187 1 Tablet(s) PO daily 02/28/2017 Inactive atorvastatin 40 mg tablet RxNorm: 697850 1 Tablet(s) PO daily 02/01/2017 02/28/2017 Inactive doxycycline hyclate 100 mg capsule RxNorm: 5018351 1 Capsule(s) PO BID 02/01/2017 02/10/2017 Inactive clonazepam 1 mg tablet RxNorm: 461704 1 Tablet(s) PO Q8 as needed 10/09/2016 01/05/2017 Inactive ceftriaxone 1 gram solution for injection RxNorm: 0135966 Inj 10/06/2016 10/06/2016 Inactive cyclobenzaprine 10 mg tablet RxNorm: 095477 1/2-1 Tablet(s) PO TID PRN 07/18/2016 01/28/2017 Inactive clonazepam 1 mg tablet RxNorm: 134953 1 Tablet(s) PO Q8 as needed 05/31/2016 05/29/2016 Inactive clonazepam 1 mg tablet RxNorm: 809794 1 Tablet(s) PO Q8 as needed 05/31/2016 08/28/2016 Inactive Toujeo SoloStar 300 unit/mL (1.5 mL) subcutaneous insulin pen RxNorm: 1076890 10 Unit(s) SQ daily 05/23/2016 01/28/2017 Inactive Crestor 10 mg tablet RxNorm: 429523 1 Tablet(s) PO QHS 201501/28/2017 Inactive Crestor 10 mg tablet RxNorm: 539776 1 Tablet(s) PO QHS 201505/18/2016 Inactive clonazepam 1 mg tablet RxNorm: 337721 1 Tablet(s) PO Q8 as needed 04/25/2016 05/30/2016 Inactive prednisone 20 mg tablet RxNorm: 974265 3 Tablet(s) PO daily 06/201602/10/2016 Inactive prednisone 20 mg tablet RxNorm: 986852 3 Tablet(s) PO daily 06/201605/14/2016 Inactive Kenalog 40 mg/mL suspension for injection RxNorm: 9803199 Milliliter(s) Inj 01/20/2016 01/20/2016 Inactive aspirin 81 mg tablet,delayed release RxNorm: 779872 1 Tablet(s) PO daily No Start Date Active Brilinta 90 mg tablet RxNorm: 9215401 1 Tablet(s) PO BID No Start Date Active acetaminophen 500 mg tablet RxNorm: 222012 1-2 Tablet(s) PO as needed No Start Date Active clopidogrel 75 mg tablet RxNorm: 634715 1 Tablet(s) PO daily No Start Date 02/28/2017 Inactive Novolog Flexpen U-100 Insulin aspart 100 unit/mL subcutaneous RxNorm: 1744162 5 units with breakfast lunch and 10 supper Unit(s) SQ No Start Date 06/17/2018 Inactive clonazepam 1 mg tablet RxNorm: 271098 1 Tablet(s) PO QHS No Start Date 04/24/2016 Inactive Coreg 6.25 mg tablet RxNorm: 330795 1 Tablet(s) PO BID No Start Date 09/29/2018 Inactive acyclovir 400 mg tablet RxNorm: 724355 2 Tablet(s) PO 5x daily No Start Date 02/28/2017 Inactive Lyrica 50 mg capsule RxNorm: 204589 Capsule(s) PO BID No Start Date 06/09/2018 Inactive Vraylar 3 mg capsule RxNorm: 6972365 1 Capsule(s) PO daily No Start Date 03/12/2018 Inactive valsartan 80 mg tablet RxNorm: 190026 1 Tablet(s) PO daily No Start Date 10/22/2018 Inactive Medication Administered Medication Codes Instructions Start Date Status ketorolac 60 mg/2 mL intramuscular solution RxNorm: 7227284 Milliliter 10/21/2018 No longer Active Kenalog 40 mg/mL suspension for injection RxNorm: 1859552 1.5Milliliter 09/30/2018 No longer Active Kenalog 40 mg/mL suspension for injection RxNorm: 5693092 Milliliter 09/11/2018 No longer Active Kenalog 40 mg/mL suspension for injection RxNorm: 1135142 Milliliter 06/28/2018 No longer Active ketorolac 30 mg/mL injection solution RxNorm: 700441 2Milliliter 05/02/2018 No longer Active ceftriaxone 500 mg solution for injection RxNorm: 4361472 1Milliliter 02/16/2017 No longer Active Kenalog 40 mg/mL suspension for injection RxNorm: 8470344 1Milliliter 02/16/2017 No longer Active ceftriaxone 1 gram solution for injection RxNorm: 1300914 10/06/2016 No longer Active Kenalog 40 mg/mL suspension for injection RxNorm: 8351117 Milliliter 01/20/2016 No longer Active Immunizations Vaccine Codes Date Status Influenza CVX: 141 07/22/2018 completed Influenza CVX: 141 08/16/2017 completed Assessments Condition Codes Effective Dates Cough ICD-10: R05 ICD-9: 786.2 11/18/2018 Pneumonia due to other Gram-negative bacteria ICD-10: [...] Reason For Visit Effective Dates Notes cough 11/18/2018 cough 11/12/2018 cough 10/30/2018 finger [...] Item Item Code Result Date Culture Sputum 881073 LOWER RESPIRATORY TRACT CULTURE SEE NOTES 11/14/2018 Culture Sputum 244560 LOWER RESPIRATORY TRACT CULTURE SEE NOTES 10/16/2018 LIPID GRP [id number] CHOLESTEROL TNP:Duplicate Order 09/10/2018 LIPID GRP 5502402 Triglyceride TNP:Duplicate Order 2017 LIPID GRP 9623071 HDL CHOLESTEROL TNP:Duplicate Order 2017 LIPID GRP [id number] Chol/HDL Ratio TNP:Duplicate Order 2017 LIPID GRP 1347365 LDL Cholesterol TNP:Duplicate Order 2017 A1C HPLC 5422668 Hgb A1c 19806-3 TNP:Duplicate Order 2017 C Diff An [id number] GDH TNP:Lab Request 06/22/2018 C Diff An [id number] Toxin A/B TNP:Lab Request 06/22/2018 C Diff An [id number] C Diff Analyzer TNP:Lab Request 2017 C Diff An [id number] IC OK? TNP:Lab Request 06/22/2018 CBC 0864781 WBC 6.4 10e9/L 05/02/2018 CBC 9763206 RBC 5.60 10e12/L 05/02/2018 CBC 2623023 HEMOGLOBIN 17.0 g/dL 05/02/2018 CBC 3531572 HEMATOCRIT 48.0 % 05/02/2018 CBC 7231226 MCV 85.7 fL 05/02/2018 CBC 0642794 MCH 30.4 pg 05/02/2018 CBC 4520682 MCHC 35.4 g/dL 05/02/2018 CBC 2249794 PLATELET COUNT 166 10e9/L 05/02/2018 CBC 9052348 Mean Plt Volume 11.6 fL 05/02/2018 CBC 9320182 Neut Auto 48.6 % 05/02/2018 CBC 1637672 Lymph Auto 41.7 % 05/02/2018 CBC 6976990 [place] Auto 8.1 % 05/02/2018 CBC 7154249 RDW 13.1 % 05/02/2018 CBC 6009684 Eos Auto 1.1 % 05/02/2018 CBC 9230810 Baso Auto 0.5 % 05/02/2018 CBC 8405559 Neutrophil Abs 3.11 10e9/L 05/02/2018 CBC 0123334 Lymphocyte Abs 2.67 10e9/L 05/02/2018 CBC 6051185 Monocyte Abs 0.52 10e9/L 05/02/2018 CBC 0130737 Eosinophil Abs 0.07 10e9/L 05/02/2018 CBC 9427609 RDW-SD 40.0 fL 05/02/2018 CBC 6708471 Basophil Abs 0.03 10e9/L 05/02/2018 CHEM 14 8958011 AST 17 U/L 05/02/2018 CHEM 14 0176742 ALT 17 U/L 05/02/2018 CHEM 14 5095597 BUN 17 mg/dL 05/02/2018 CHEM 14 5512375 ALBUMIN 4.0 g/dL 05/02/2018 CHEM 14 4853445 CHLORIDE 97 mmol/L 05/02/2018 CHEM 14 5532067 Bili Total 0.9 mg/dL 05/02/2018 CHEM 14 6870408 ALK PHOS 67 U/L 05/02/2018 CHEM 14 1532433 SODIUM 135 mmol/L 05/02/2018 CHEM 14 1340715 CREATININE 1.18 mg/dL 05/02/2018 CHEM 14 5820024 CALCIUM 9.4 mg/dL 05/02/2018 CHEM 14 3582683 POTASSIUM 4.4 mmol/L 05/02/2018 CHEM 14 1123225 TOTAL PROTEIN 6.9 g/dL 05/02/2018 CHEM 14 8243376 GLUCOSE 316 mg/dL 05/02/2018 CHEM 14 4085259 Bicarbonate 29 mmol/L 05/02/2018 CHEM 14 6995222 AGAP 9 mmol/L 05/02/2018 MEAN GLUC 8997913 Calc Mean Gluc 283 mg/dL 05/02/2018 A1C HPLC 3475239 Hgb A1c 67365-0 11.5 % 05/02/2018 GFR CALC 8741871 GFR Non Afr Amr >60 mL/min 05/02/2018 GFR CALC 2604928 GFR Afr Amr >60 mL/min 05/02/2018 JIC Gold 4140975 JIC Gold Complete 02/28/2018 GFR CALC 0612239 GFR Non Afr Amr >60 mL/min 02/28/2018 GFR CALC 3903132 GFR Afr Amr >60 mL/min 02/28/2018 UA W/CII 1174513 UA Urine Appear Normal 02/28/2018 UA W/CII 1700494 UA Protein 1+ 02/28/2018 UA W/CII 9994638 UA Hemoglobin Negative 02/28/2018 UA W/CII 6243527 UA Glucose 4+ 02/28/2018 UA W/CII 2807442 UA Ketones Trace 02/28/2018 UA W/CII 0626219 UA pH 5.5 02/28/2018 UA W/CII 1174902 U Spec [place] 1.015 02/28/2018 UA W/CII 4605781 UA Bilirubin Negative 02/28/2018 UA W/CII 7630773 UA Nitrite NEG 02/28/2018 UA W/CII 6573646 UA Leuk Esteras Negative 02/28/2018 MICR 9398926 UA WBC/hpf 1 02/28/2018 MICR 2048822 UA RBC hpf 2 02/28/2018 MICR 0891838 UA WBC auto 3.8 /uL 02/28/2018 MICR 4803233 UA RBC auto 12.2 /uL 02/28/2018 MICR 7987247 UA SQ EPI auto 2.3 /uL 02/28/2018 MICR 3146571 UA H Cast auto 0.10 /uL 02/28/2018 CBC 7151250 WBC 6.4 10e9/L 02/28/2018 CBC 3463944 RBC 5.51 10e12/L 02/28/2018 CBC 2498584 HEMOGLOBIN 16.7 g/dL 02/28/2018 CBC 5579266 HEMATOCRIT 46.9 % 02/28/2018 CBC 5793793 MCV 85.1 fL 02/28/2018 CBC 3068078 MCH 30.3 pg 02/28/2018 CBC 4259363 MCHC 35.6 g/dL 02/28/2018 CBC 5668150 PLATELET COUNT 173 10e9/L 02/28/2018 CBC 1333137 Mean Plt Volume 11.6 fL 02/28/2018 CBC 6502961 Neut Auto 51.8 % 02/28/2018 CBC 0724370 Lymph Auto 39.9 % 02/28/2018 CBC 4877855 [place] Auto 7.3 % 02/28/2018 CBC 2156438 Eos Auto 0.8 % 02/28/2018 CBC 5311109 RDW 13.3 % 02/28/2018 CBC 1631606 Baso Auto 0.2 % 02/28/2018 CBC 8546349 Neutrophil Abs 3.32 10e9/L 02/28/2018 CBC 5244850 Lymphocyte Abs 2.55 10e9/L 02/28/2018 CBC 5754992 Monocyte Abs 0.47 10e9/L 02/28/2018 CBC 8098695 Eosinophil Abs 0.05 10e9/L 02/28/2018 CBC 4423586 Basophil Abs 0.01 10e9/L 02/28/2018 CBC 1348571 RDW-SD 40.8 fL 02/28/2018 CHEM 14 9057660 AST 17 U/L 02/28/2018 CHEM 14 1042995 ALT 17 U/L 02/28/2018 CHEM 14 7773862 BUN 20 mg/dL 02/28/2018 CHEM 14 6121095 ALBUMIN 4.1 g/dL 02/28/2018 CHEM 14 7721025 CHLORIDE 97 mmol/L 02/28/2018 CHEM 14 8491200 Bili Total 1.3 mg/dL 02/28/2018 CHEM 14 4503471 ALK PHOS 78 U/L 02/28/2018 CHEM 14 2334665 SODIUM 135 mmol/L 02/28/2018 CHEM 14 9103966 CREATININE 1.09 mg/dL 02/28/2018 CHEM 14 1427230 CALCIUM 9.6 mg/dL 02/28/2018 CHEM 14 8177976 POTASSIUM 3.8 mmol/L 02/28/2018 CHEM 14 8162800 TOTAL PROTEIN 7.3 g/dL 02/28/2018 CHEM 14 3042654 GLUCOSE 349 mg/dL 02/28/2018 CHEM 14 5820854 Bicarbonate 29 mmol/L 02/28/2018 CHEM 14 6698509 AGAP 9 mmol/L 02/28/2018 [place] Spotted Fever Igg/Igm 149835 FEI MT SPOTTED FEVER IGM EIA . 09/05/2017 [place] Spotted Fever Igg/Igm 763619 RMSF, IGM 0.17 index 09/05/2017 [place] Spotted Fever Igg/Igm 901381 FEI MT SPOTTED FEVER IGG EIA FLEX . 09/05/2017 [place] Spotted Fever Igg/Igm 047662 RMSF, IGG SCREEN-FLEX Positive 09/05/2017 Fei Mtn Spot'D Fev Igg 867946 RMSF, IGG -TITER IFA <1:64 11/2016 Ehrlichia Chaffeensis Antibody Igm 884875 EHRLICHIA CHAFFEENSIS IGM < 1:16 09/03/2017 Ehrlichia Chaffeensis Antibody Igg 060407 EHRLICHIA CHAFFEENSIS IGG <1:64 09/03/2017 Lymes Disease Total Antibodies With Western Blot Reflex B. BURGDORFERI, IGG/IGM 0.223 08/30/2017 Lymes Disease Total Antibodies With Western Blot Reflex C-Reactive Protein Qnt Crqnt CRP 0.00 mg/dl 08/27/2017 Sed Rate Ord21 ESR 8 mm/hr 08/27/2017 Comp Metabolic Cdm528 NA 135 mEq/L 08/16/2017 Comp Metabolic Vhj752 K 4.1 mEq/L 08/16/2017 Comp Metabolic Lkz912 CL 98 mEq/L 08/16/2017 Comp Metabolic Oui715 CO2 28.0 mEq/L 08/16/2017 Comp Metabolic Scc323 ANION GAP 13 08/16/2017 Comp Metabolic Urw784 GLUCOSE 299 mg/dL 08/16/2017 Comp Metabolic Qix358 Creat 0.9 mg/dL 08/16/2017 Comp Metabolic Qku061 eGFR 90 ml/min/1.73m2 08/16/2017 Comp Metabolic Qxm810 BUN 20 mg/dL 08/16/2017 Comp Metabolic Bxh467 B/C Ratio 21.5 Ratio 08/16/2017 Comp Metabolic Bqp382 CALCIUM 9.2 mg/dL 08/16/2017 Comp Metabolic Zct228 ALK PHOS 84 U/L 08/16/2017 Comp Metabolic Etq746 AST(SGOT) 19 U/L 08/16/2017 Comp Metabolic Ikg201 ALT(SGPT) 24 U/L 08/16/2017 Comp Metabolic Uez270 BILI T 1.1 mg/dL 08/16/2017 Comp Metabolic Wzb747 ALBUMIN 4.2 g/dL 08/16/2017 Comp Metabolic Wtt104 TPRO 7.2 g/dL 08/16/2017 Comp Metabolic Fow297 GLOB 3.0 g/dL 08/16/2017 Comp Metabolic Fkb611 A/G Ratio 1.4 Ratio 08/16/2017 Comp Metabolic Wrh945 Osmo 284 mOsmo 08/16/2017 %Hba1C Mzn497 % HbA1c 38773-6 12.5 % 08/16/2017 %Hba1C Xrs086 Gluc Ave 312 mg/dL 08/16/2017 Urine Culture Ucult Complete NO Growth Day 2 06/23/2017 Urine Culture Ucult Preliminary NO Growth Day 1 06/23/2017 C RAP A SC [id number] Strep A Negative 06/08/2017 %Hba1C Xpm981 % HbA1c 91867-9 9.5 % 05/04/2017 %Hba1C Huv665 Gluc Ave 226 mg/dL 05/04/2017 Tsh Ord6 [...] 31.7 pg 05/04/2017 Cbc With Differential Ord2 [place]% 8.5 % 05/04/2017 Cbc With Differential Ord2 [...] 2.48 K/ul 05/04/2017 Cbc With Differential Ord2 [place] ABS# 0.5 K/ul 05/04/2017 Cbc With Differential Ord2 Eos ABS# 0.1 K/ul 05/04/2017 Cbc With Differential Ord2 Baso ABS# 0.0 K/ul 05/04/2017 Comp Metabolic Zic954 NA 135 mEq/L 05/04/2017 Comp Metabolic Npw972 K 4.2 mEq/L 05/04/2017 Comp Metabolic Xug051 CL 99 mEq/L 05/04/2017 Comp Metabolic Vjd278 CO2 26.0 mEq/L 05/04/2017 Comp Metabolic Bch178 ANION GAP 14 05/04/2017 Comp Metabolic Mls968 GLUCOSE 277 mg/dL 05/04/2017 Comp Metabolic Beb272 Creat 0.9 mg/dL 05/04/2017 Comp Metabolic Cjt157 eGFR 96 ml/min/1.73m2 05/04/2017 Comp Metabolic Wxt177 BUN 23 mg/dL 05/04/2017 Comp Metabolic Yvq969 B/C Ratio 26.1 Ratio 05/04/2017 Comp Metabolic Kme898 CALCIUM 8.9 mg/dL 05/04/2017 Comp Metabolic Iwy116 ALK PHOS 81 U/L 05/04/2017 Comp Metabolic Nos221 AST(SGOT) 21 U/L 05/04/2017 Comp Metabolic Gkc465 ALT(SGPT) 27 U/L 05/04/2017 Comp Metabolic Zqa543 BILI T 1.2 mg/dL 05/04/2017 Comp Metabolic Qth411 ALBUMIN 4.0 g/dL 05/04/2017 Comp Metabolic Ywc175 TPRO 6.7 g/dL 05/04/2017 Comp Metabolic Rrk658 GLOB 2.7 g/dL 05/04/2017 Comp Metabolic Enr723 A/G Ratio 1.5 Ratio 05/04/2017 Comp Metabolic Aeo593 Osmo 284 mOsmo 05/04/2017 C A/B FLU [id number] Influenza A Scr Negative 02/16/2017 C A/B FLU [id number] Influenza B Scr Positive 02/16/2017 Cbc With [...] 39.7 % 05/23/2016 Cbc With Differential Ord2 [place]% 8.8 % 05/23/2016 Cbc With Differential Ord2 [...] 2.07 K/ul 05/23/2016 Cbc With Differential Ord2 [place] ABS# 0.5 K/ul 05/23/2016 Cbc With Differential Ord2 Eos ABS# 0.1 K/ul 05/23/2016 Cbc With Differential Ord2 Baso ABS# 0.0 K/ul 05/23/2016 Lipid Ord30 CHOL 397 mg/dL 05/17/2016 Lipid Ord30 HDL 48.0 mg/dl 05/17/2016 Lipid Ord30 TRIG 578 mg/dL 05/17/2016 Lipid Ord30 LDL Unable to calculate Due to elevated triglycerides mg/dL 05/17/2016 Lipid Ord30 C/HDL 8.3 Ratio 05/17/2016 %Hba1C Lrg845 % HbA1c 64480-1 12.4 % 05/16/2016 %Hba1C Nin759 Gluc Ave 309 mg/dL 05/16/2016 Cbc With [...] 87.4 fl 05/15/2016 Cbc With Differential Ord2 [place]% 7.8 % 05/15/2016 Cbc With Differential Ord2 [...] 2.04 K/ul 05/15/2016 Cbc With Differential Ord2 M[place]urtain ABS# 0.5 K/ul 05/15/2016 Cbc With Differential Ord2 Eos ABS# 0.1 K/ul 05/15/2016 Cbc With Differential Ord2 Baso ABS# 0.0 K/ul 05/15/2016 Tsh Ord6 hTSH II 1.70 uIU/mL 05/15/2016 Comp Metabolic Vpw826 NA 135 mEq/L 05/15/2016 Comp Metabolic Qse062 K 3.9 mEq/L 05/15/2016 Comp Metabolic Xof289 CL 96 mEq/L 05/15/2016 Comp Metabolic Mme104 CO2 27.0 mEq/L 05/15/2016 Comp Metabolic Cln657 ANION GAP 16 05/15/2016 Comp Metabolic Yeu942 GLUCOSE 183 mg/dL 05/15/2016 Comp Metabolic Pst319 Creat 1.1 mg/dL 05/15/2016 Comp Metabolic Tpv992 eGFR 71 ml/min/1.73m2 05/15/2016 Comp Metabolic Bjt554 BUN 17 mg/dL 05/15/2016 Comp Metabolic Doe792 B/C Ratio 14.9 Ratio 05/15/2016 Comp Metabolic Uvp649 CALCIUM 9.6 mg/dL 05/15/2016 Comp Metabolic Rsl833 ALK PHOS 100 U/L 05/15/2016 Comp Metabolic Pqa236 AST(SGOT) 20 U/L 05/15/2016 Comp Metabolic Fvv752 ALT(SGPT) 20 U/L 05/15/2016 Comp Metabolic Tlv800 BILI T 1.3 mg/dL 05/15/2016 Comp Metabolic Lhd131 ALBUMIN 4.6 g/dL 05/15/2016 Comp Metabolic Bgg808 TPRO 8.1 g/dL 05/15/2016 Comp Metabolic Los796 GLOB 3.5 g/dL 05/15/2016 Comp Metabolic Msw598 A/G Ratio 1.3 Ratio 05/15/2016 Comp Metabolic Xqe937 Osmo 276 mOsmo 05/15/2016 Review of Systems System Result Effective Dates Constitutional recent illness 11/18/2018 Constitutional No anorexia [...] normal 05/02/2018 None Full Exam - General 1995 Ears/Nose/Throat [...] of skin Location: face 05/04/2017 patch left latter-day Full Exam - General 1994 Constitutional general [...] CPT-4: J3301 09/30/2018 THER/PROPH/DIAG INJ SC/IM CPT-4: 63034 09/11/2018 TRIAMCINOLONE ACET INJ NOS CPT-4: J3301 09/11/2018 IMMUNIZATION ADMIN CPT -4: 23882 07/22/2018 FLU VAC NO PRSV 4 MENA 3 YRS+ CPT-4: 55316 07/22/2018 TRIAMCINOLONE ACET INJ NOS CPT-4: J3301 06/28/2018 KETOROLAC TROMETHAMINE INJ CPT-4: J1885 05/02/2018 FLU VAC NO PRSV 4 MENA 3 YRS+ CPT-4: 39077 08/16/2017 IMMUNIZATION ADMIN CPT -4: 94069 08/16/2017 URINALYSIS NONAUTO W/O SCOPE CPT-4: 67639 06/21/2017 TRIAMCINOLONE ACET INJ NOS CPT-4: J3301 05/04/2017 THER/PROPH/DIAG INJ SC/IM CPT-4: 99780 05/04/2017 TRIAMCINOLONE ACET INJ NOS CPT-4: J3301 02/16/2017 ROCEPHIN, PER 250 MG CPT-4: J0696 02/16/2017 ROCEPHIN, PER 250 MG CPT-4: J0696 10/06/2016 URINALYSIS NONAUTO W/O SCOPE CPT-4: 78623 07/18/2016 TRIAMCINOLONE ACET INJ NOS CPT-4: J3301 01/20/2016 Vital Signs Date Vital 11/18/2018 Blood Pressure 1: 120/84 Code : 8480-6 BMI: 33.9 Code : 67493-2 Heart Rate 1 : 77 bpm Height: 6'2" SpO2: 99% Temperature: 36.7 (C) / 98.1 (F) Weight: 264 lbs 11/12/2018 Blood Pressure 1: 138/76 Code : 8480-6 BMI: 33.9 Code : 26218-2 Heart Rate 1 : 91 bpm Height: 6'2" SpO2: 99% Weight: 264 lbs 10/30/2018 Blood Pressure 1: 130/72 Code : 8480-6 BMI: 33.3 Code : 39663-8 Heart Rate 1 : 83 bpm Height: 6'2" SpO2: 95% Temperature: 36.5 (C) / 97.7 (F) Weight: 259 lbs 10/24/2018 Blood Pressure 1: 130/70 Code : 8480-6 Heart Rate 1: 95 bpm Height: 6'2" SpO2: 96% 10/23/2018 Blood Pressure 1: 100/70 Code : 8480-6 Blood Pressure 2: 102/70 Code: 8480-6 BMI: 33.3 Code: 34353-6 Heart Rate 1: 106 bpm Height: 6'2" SpO2: 98% Weight: 259 lbs 10/21/2018 Blood Pressure 1: 140/90 Code : 8480-6 BMI: 32.9 Code : 00603-8 Heart Rate 1 : 96 bpm Height: 6'2" SpO2: 92% Weight: 256 lbs 10/17/2018 Blood Pressure 1: 110/68 Code : 8480-6 BMI: 32.9 Code : 20403-0 Heart Rate 1 : 82 bpm Height: 6'2" SpO2: 97% Weight: 256 lbs 10/14/2018 Blood Pressure 1: 124/70 Code : 8480-6 BMI: 33.6 Code : 04225-2 Heart Rate 1 : 76 bpm Height: 6'2" SpO2: 99% Temperature: 36.3 (C) / 97.3 (F) Weight: 262 lbs 09/30/2018 Blood Pressure 1: 138/82 Code : 8480-6 BMI: 33.6 Code : 02900-8 Heart Rate 1 : 82 bpm Height: 6'2" SpO2: 98% Temperature: 36.3 (C) / 97.3 (F) Weight: 262 lbs 09/09/2018 Blood Pressure 1: 140/80 Code : 8480-6 BMI: 33.0 Code : 51943-5 Heart Rate 1 : 97 bpm Height: 6'2" SpO2: 93% Temperature: 36.8 (C) / 98.2 (F) Weight: 257 lbs 07/22/2018 Blood Pressure 1: 120/78 Code : 8480-6 BMI: 31.6 Code : 94465-8 Heart Rate 1 : 87 bpm Height: 6'2" SpO2: 98% Weight: 246 lbs 07/16/2018 Blood Pressure 1: 132/74 Code : 8480-6 BMI: 31.2 Code : 80390-5 Heart Rate 1 : 90 bpm Height: 6'2" SpO2: 96% Weight: 243 lbs 07/01/2018 Blood Pressure 1: 142/82 Code : 8480-6 BMI: 31.8 Code : 73114-6 Heart Rate 1 : 88 bpm Height: 6'2" SpO2: 98% Weight: 248 lbs 06/28/2018 Blood Pressure 1: 132/76 Code : 8480-6 BMI: 31.8 Code : 18792-6 Heart Rate 1 : 107 bpm Height: 6'2" SpO2: 98% Temperature: 37.9 (C) / 100.3 (F) Weight: 248 lbs 06/18/2018 Blood Pressure 1: 138/82 Code : 8480-6 BMI: 31.8 Code : 94044-1 Heart Rate 1 : 82 bpm Height: 6'2" SpO2: 97% Weight: 248 lbs 06/04/2018 Blood Pressure 1: 128/84 Code : 8480-6 BMI: 33.9 Code : 14855-7 Heart Rate 1 : 86 bpm Height: 6'2" SpO2: 95% Weight: 264 lbs 05/13/2018 Blood Pressure 1: 130/80 Code : 8480-6 BMI: 31.1 Code : 28899-7 Heart Rate 1 : 100 bpm Height: 6'2" SpO2: 94% Weight: 242 lbs 05/02/2018 Blood Pressure 1: 134/84 Code : 8480-6 BMI: 31.2 Code : 13427-5 Heart Rate 1 : 93 bpm Height: 6'2" SpO2: 98% Weight: 243 lbs 04/29/2018 Blood Pressure 1: 142/88 Code : 8480-6 BMI: 31.6 Code : 00625-7 Heart Rate 1 : 96 bpm Height: 6'2" SpO2: 96% Temperature: 36.7 (C) / 98.1 (F) Weight: 246 lbs 03/13/2018 Blood Pressure 1: 120/76 Code : 8480-6 BMI: 30.9 Code : 21235-2 Heart Rate 1 : 112 bpm Height: 6'2" SpO2: 97% Weight: 241 lbs 03/07/2018 Blood Pressure 1: 108/78 Code : 8480-6 BMI: 30.0 Code : 22276-6 Heart Rate 1 : 87 bpm Height: 6'2" SpO2: 98% Weight: 234 lbs 02/28/2018 Blood Pressure 1: 106/74 Code : 8480-6 BMI: 30.0 Code : 60494-9 Heart Rate 1 : 101 bpm Height: 6'2" SpO2: 98% Temperature: 36.4 (C) / 97.5 (F) Weight: 234 lbs 02/13/2018 Blood Pressure 1: 110/78 Code : 8480-6 BMI: 30.0 Code : 10325-9 Heart Rate 1 : 106 bpm Height: 6'2" SpO2: 98% Weight: 234 lbs 01/29/2018 Blood Pressure 1: 106/68 Code : 8480-6 BMI: 30.0 Code : 46729-5 Heart Rate 1 : 108 bpm Height: 6'2" SpO2: 98% Weight: 234 lbs 08/27/2017 Blood Pressure 1: 134/76 Code : 8480-6 Heart Rate 1: 98 bpm Height: SpO2: 97% Weight: 08/16/2017 Blood Pressure 1: 128/80 Code : 8480-6 BMI: 32.0 Code : 75402-5 Heart Rate 1 : 94 bpm Height: [...] Code : 8480-6 BMI: 31.8 Code : 55129-9 Heart Rate 1 : 102 bpm Height: [...] Code : 8480-6 BMI: 31.8 Code : 21440-0 Heart Rate 1 : 85 bpm Height: 6'2" SpO2: 96% Temperature: 36.6 (C) / 97.9 (F) Weight: 248 lbs 02/12/2017 Blood Pressure 1: 126/76 Code : 8480-6 BMI: 31.8 Code : 85505-4 Heart Rate 1 : 106 bpm Height: 6'2" SpO2: 91% Weight: 248 lbs 02/05/2017 Blood Pressure 1: 146/86 Code : 8480-6 BMI: 31.9 Code : 88811-1 Heart Rate 1 : 98 bpm Height: 6'2" SpO2: 87% Temperature: 36.7 (C) / 98.0 (F) Weight: 248 lbs 8 oz 01/29/2017 Blood Pressure 1: 132/84 Code : 8480-6 BMI: 31.8 Code : 48910-4 Heart Rate 1 : 83 bpm Height: 6'2" SpO2: 97% Weight: 248 lbs 10/13/2016 Blood Pressure 1: 128/72 Code : 8480-6 Heart Rate 1: 86 bpm SpO2: 94% 10/09/2016 Blood Pressure 1: 128/68 Code : 8480-6 Heart Rate 1: 136 bpm SpO2: 94% Temperature: 36.8 (C) / 98.2 (F) 10/06/2016 Blood Pressure 1: 140/80 Code : 8480-6 BMI: 32.1 Code : 33582-5 Heart Rate 1 : 94 bpm Height: 6'2" SpO2: 95% Weight: 250 lbs 07/18/2016 Blood Pressure 1: 128/86 Code : 8480-6 BMI: 32.1 Code : 24528-6 Heart Rate 1 : 89 bpm Height: 6'2" SpO2: 96% Weight: 250 lbs 06/22/2016 Blood Pressure 1: 118/70 Code : 8480-6 BMI: 32.1 Code : 09750-0 Heart Rate 1 : 70 bpm Height: 6'2" SpO2: 97% Weight: 250 lbs 05/23/2016 Blood Pressure 1: 128/80 Code : 8480-6 BMI: 32.1 Code : 70643-6 Heart Rate 1 : 76 bpm Height: 6'2" SpO2: 98% Weight: 250 lbs 05/15/2016 Blood Pressure 1: 110/90 Code : 8480-6 BMI: 31.3 Code : 29167-7 Heart Rate 1 : 111 bpm Height: 6'2" SpO2: 97% Temperature: 36.6 (C) / 97.8 (F) Weight: 244 lbs 01/20/2016 Blood Pressure 1: 128/76 Code : 8480-6 BMI: 33.0 Code : 16441-4 Heart Rate 1 : 103 bpm Height: 6'2" SpO2: 95% Weight: 257 lbs Functional Status No Functional Status data History of Present Illness Symptom Name Status Result Effective Date Notes Quality acute 2018 None Quality intermittent 11/18/2018 [...] data Encounters Encounter Performer Location Codes Date ([id number]) 27213 EST. PATIENT, LEVEL III Diagnosis: Cough[ICD10: R05] Melida Ha MD, [facility] CPT-4: 84224 11/18/2018 ([id number]) 22768 EST. PATIENT, LEVEL III Diagnosis: Cough[ICD10: R05] Diagnosis: Pneumonia due to other Gram-negative bacteria[ICD10: J15.6] Marcela Ha MD, [facility] CPT-4: 58518 11/12/2018 ([id number]) 96144 EST. PATIENT, LEVEL III Diagnosis: Pneumonia due to other Gram-negative bacteria[ICD10: J15.6] Diagnosis: Cough[ICD10: R05] Melida Ha MD, [facility] CPT-4: 35395 10/30/2018 ([id number]) 41180 EST. PATIENT, LEVEL II Diagnosis: Pain in joints of right hand[ICD10: M25.541] Diagnosis: Trigger finger, right middle finger[ICD10: M65.331] Marcela Ha MD, [facility] CPT-4: 58295 10/24/2018 ([id number]) 09156 EST. PATIENT, LEVEL IV Diagnosis: Essential (primary) hypertension[ICD10: I10] Diagnosis: Type 2 diabetes mellitus with foot ulcer[ICD10: E11.621] Melida Ha MD, [facility] CPT-4: 87282 10/23/2018 ([id number]) 98179 EST. PATIENT, LEVEL III Diagnosis: Cellulitis of right finger[ICD10: L03.011] Diagnosis: Type 2 diabetes mellitus with foot ulcer[ICD10: E11.621] Diagnosis: Pain in right hand[ICD10: M79.641] Melida Ha MD, [facility] CPT-4: 82678 10/21/2018 [id number] EST. PATIENT, LEVEL III Diagnosis: Spontaneous ecchymoses[ICD10: R23.3] Diagnosis: Cellulitis of right lower limb[ICD10: L03.115] Diagnosis: Cellulitis of left lower limb[ICD10: L03.116] Madeline Ha MD, [facility] CPT-4: 45223 10/17/2018 ([id number]) 24285 EST. PATIENT, LEVEL III Diagnosis: Cough[ICD10: R05] Diagnosis: Acute bronchitis, unspecified[ICD10: J20.9] Melida Ha MD, [facility] CPT-4: 86140 10/14/2018 [id number] EST. PATIENT, LEVEL III Diagnosis: Acute laryngopharyngitis[ICD10: J06.0] Diagnosis: Cough[ICD10: R05] Madeline Ha MD, [facility] CPT-4: 79154 09/30/2018 ([id number]) 90714 EST. PATIENT, LEVEL III Diagnosis: Acute recurrent maxillary sinusitis[ICD10: J01.01] Diagnosis: Cough[ICD10: R05] Diagnosis: Type 2 diabetes mellitus with hyperglycemia[ICD10: E11.65] Marcela Ha MD, [facility] CPT-4: 79094 09/09/2018 ([id number]) 26204 EST. PATIENT, LEVEL IV Diagnosis: Essential (primary) hypertension[ICD10: I10] Diagnosis: Mixed hyperlipidemia[ICD10: E78.2] Diagnosis: Bipolar disorder, current episode depressed, moderate[ICD10: F31.32] Diagnosis: Type 2 diabetes mellitus with other specified complication[ICD10: E11.69] Melida Ha MD, [facility] CPT-4: 04164 2017 ([id number]) 44572 EST. PATIENT, LEVEL III Diagnosis: Insomnia due to medical condition[ICD10: G47.01] Marcela Ha MD, [facility] CPT-4: 33238 07/16/2018 ([id number]) Miscellaneous no charge Diagnosis: Cough[ICD10: R05] Madeline Ha MD, [facility] CPT-4: 46077 07/01/2018 23449 EST. PATIENT, LEVEL III Diagnosis: Cough[ICD10: R05] Diagnosis: Acute laryngopharyngitis[ICD10: J06.0] Diagnosis: Other allergic rhinitis[ICD10: J30.89] Madeline Ha MD, [facility] CPT-4: 83965 06/28/2018 ([id number]) 89973 EST. PATIENT, LEVEL IV Diagnosis: Type 2 diabetes mellitus with hyperglycemia[ICD10: E11.65] Diagnosis: Essential (primary) hypertension[ICD10: I10] Melida Ha MD, [facility] CPT-4: 56040 06/18/2018 ([id number]) 97634 EST. PATIENT, LEVEL IV Diagnosis: Type 2 diabetes mellitus with hyperglycemia[ICD10: E11.65] Diagnosis: Essential (primary) hypertension[ICD10: I10] Diagnosis: Localized edema[ICD10: R60.0] Melida Ha MD, [facility] CPT- 4: 59171 06/04/2018 ([id number]) 05767 EST. PATIENT, LEVEL III Diagnosis: Type 2 diabetes mellitus with hyperglycemia[ICD10: E11.65] Diagnosis: Myalgia[ICD10: M79.1] Diagnosis: Pain in right hip[ICD10: M25.551] Diagnosis: Pain in left hip[ICD10: M25.552] Marcela Ha MD, [facility] CPT-4: 32837 05/13/2018 ([id number]) 71297 EST. PATIENT, LEVEL III Diagnosis: Myalgia[ICD10: M79.1] Diagnosis: Pain in right hip[ICD10: M25.551] Diagnosis: Pain in left hip[ICD10: M25.552] Marcela Ha MD, [facility] CPT-4: 64508 05/02/2018 ([id number]) 88026 EST. PATIENT, LEVEL IV Diagnosis: Essential (primary) hypertension[ICD10: I10] Diagnosis: Type 2 diabetes mellitus with hyperglycemia[ICD10: E11.65] Diagnosis: Major depressive disorder, single episode, moderate[ICD10: F32.1] Diagnosis: Myalgia[ICD10: M79.1] Marcela Ha MD, [facility] CPT-4: 94080 04/29/2018 ([id number]) 82423 EST. PATIENT, LEVEL IV Diagnosis: Type 2 diabetes mellitus with hyperglycemia[ICD10: E11.65] Diagnosis: Essential (primary) hypertension[ICD10: I10] Diagnosis: Major depressive disorder, single episode, moderate[ICD10: F32.1] Melida Ha MD, [facility] CPT-4: 04738 03/13/2018 ([id number]) 63345 EST. PATIENT, LEVEL III Diagnosis: Type 2 diabetes mellitus with hyperglycemia[ICD10: E11.65] Diagnosis: Bipolar disorder, current episode depressed, moderate[ICD10: F31.32] Diagnosis: Orthostatic hypotension[ICD10: I95.1] Marcela Ha MD, [facility] CPT-4: 93279 03/07/2018 ([id number]) 82196 EST. PATIENT, LEVEL IV Diagnosis: Type 2 diabetes mellitus with hyperglycemia[ICD10: E11.65] Diagnosis: Major depressive disorder, single episode, moderate[ICD10: F32.1] Diagnosis: Orthostatic hypotension[ICD10: I95.1] Diagnosis: Other fatigue[ICD10: R53.83] Marcela Ha MD, [facility] CPT-4: 89809 02/28/2018 80499 EST. PATIENT, LEVEL IV Diagnosis: Other fatigue[ICD10: R53.83] Diagnosis: Other malaise[ICD10: R53.81] Diagnosis: Gastro-esophageal reflux disease without esophagitis[ICD10: K21.9] Madeline Ha MD, [facility] CPT-4: 07892 02/13/2018 ([id number]) 91481 EST. PATIENT, LEVEL IV Diagnosis: Type 2 diabetes mellitus with foot ulcer[ICD10: E11.621] Diagnosis: Essential (primary) hypertension[ICD10: I10] Diagnosis: Gastro-esophageal reflux disease without esophagitis[ICD10: K21.9] Marcela Ha MD, [facility] CPT-4: 53785 01/29/2018 42709 EST. PATIENT, LEVEL III Diagnosis: Other malaise[ICD10: R53.81] Diagnosis: Other fatigue[ICD10: R53.83] Diagnosis: Pain in right shoulder[ICD10: M25.511] Diagnosis: Pain in left shoulder[ICD10: M25.512] Madeline Ha MD, [facility] CPT-4: 92886 08/27/2017 ([id number]) 96846 EST. PATIENT, LEVEL IV Diagnosis: Essential (primary) hypertension[ICD10: I10] Diagnosis: Type 2 diabetes mellitus with hyperglycemia[ICD10: E11.65] Diagnosis: VACCIN FOR INFLUENZA[ICD10: Z23] Melida Ha MD, [facility] CPT-4: 61652 08/16/2017 02892 EST. PATIENT, LEVEL III Diagnosis: Zoster without complications[ICD10: B02.9] Madeline Ha MD, [facility] CPT-4: 10851 07/26/2017 ([id number]) 00520 EST. PATIENT, LEVEL III Diagnosis: Cellulitis of right lower limb[ICD10: L03.115] Marcela Ha MD [facility] CPT-4: 98017 07/03/2017 91203 EST. PATIENT, LEVEL II Diagnosis: Laceration without foreign body of left forearm, initial encounter[ ICD10: S51.812A] Marcela Ha MD, [facility] CPT-4: 36264 06/29/2017 ([id number]) 03833 EST. PATIENT, LEVEL III Diagnosis: Cellulitis of right lower limb[ICD10: L03.115] Diagnosis: Type 2 diabetes mellitus with foot ulcer[ICD10: E11.621] Marcela Ha MD , [facility] CPT-4: 46982 06/18/2017 ([id number]) 25375 EST. PATIENT, LEVEL IV Diagnosis: Cellulitis of right lower limb[ICD10: L03.115] Diagnosis: Acute laryngopharyngitis[ICD10: J06.0] Diagnosis: Gastro-esophageal reflux disease without esophagitis[ICD10: K21.9] Marcela Ha MD, [facility] CPT-4: 10818 06/07/2017 ([id number]) 38729 EST. PATIENT, LEVEL III Diagnosis: Type 2 diabetes mellitus with hyperglycemia[ICD10: E11.65] Diagnosis: Insect bite (nonvenomous) of abdominal wall, initial encounter[ICD10 : S30.861A] Marcela Ha MD, [facility] CPT-4: 45112 05/17/2017 ([id number]) 29514 EST. PATIENT, LEVEL III Diagnosis: Allergic contact dermatitis due to plants, except food[ICD10: L23.7] Melida Ha MD [facility] CPT-4: 06746 05/04/2017 ([id number]) 95558 EST. PATIENT, LEVEL III Diagnosis: Essential (primary) hypertension[ICD10: I10] Marcela Ha MD [facility] CPT-4: 56168 03/15/2017 ([id number]) 97371 EST. PATIENT, LEVEL III Diagnosis: Cough[ICD10: R05] Diagnosis: Essential (primary) hypertension[ICD10: I10] Marcela Ha MD [facility] CPT-4: 88396 03/01/2017 ([id number]) 37784 EST. PATIENT, LEVEL III Diagnosis: Cough[ICD10: R05] Diagnosis: Nasal congestion[ICD10: R09.81] Diagnosis: Acute recurrent maxillary sinusitis[ICD10: J01.01] Marcela Ha MD [facility] CPT-4: 22586 02/16/2017 ([id number]) 93824 EST. PATIENT, LEVEL III Diagnosis: Type 2 diabetes mellitus with hyperglycemia[ICD10: E11.65] Marcela Ha MD [facility] CPT-4: 07679 02/12/2017 ([id number]) 60335 EST. PATIENT, LEVEL IV Diagnosis: Type 2 diabetes mellitus with hyperglycemia[ICD10: E11.65] Diagnosis: Muscle weakness (generalized)[ICD10: M62.81] Diagnosis: Disorientation, unspecified[ICD10: R41.0] Marcela Ha MD [facility] CPT-4: 73843 02/05/2017 ([id number]) Patient admitted to the hospital from clinic (NO CHARGE) Diagnosis: Type 2 diabetes mellitus with hyperglycemia[ICD10: E11.65] Diagnosis: Disorientation, unspecified[ICD10: R41.0] Diagnosis: Muscle weakness (generalized)[ICD10: M62.81] Marcela Ha MD [facility] CPT-4: 03482I 01/29/2017 ([id number]) Miscellaneous no charge Diagnosis: Cellulitis of right lower limb[ICD10: L03.115] Marcela Ha MD [facility] CPT-4: 44081 10/13/2016 ([id number]) Miscellaneous no charge Diagnosis: Type 2 diabetes mellitus with foot ulcer[ICD10: E11.621] Diagnosis: Pain in right foot[ICD10: M79.671] Marcela Ha MD, [facility] CPT-4: 61410 10/09/2016 44868 EST. PATIENT, LEVEL II Diagnosis: Cellulitis of right lower limb[ICD10: L03.115] Marcela Ha MD, [facility] CPT-4: 04320 10/06/2016 ([id number]) 74792 EST. PATIENT, LEVEL IV Diagnosis: Low back pain[ICD10: M54.5] Diagnosis: Other deformities of toe(s) (acquired), left foot[ICD10: M20.5X2] Diagnosis: Type 2 diabetes mellitus with foot ulcer[ICD10: E11.621] Marcela Ha MD , [facility] CPT-4: 35422 07/18/2016 ([id number]) 61311 EST. PATIENT, LEVEL III Diagnosis: Type 2 diabetes mellitus with hyperglycemia[ICD10: E11.65] Marcela Ha MD, [facility] CPT-4: 75011 06/22/2016 ([id number]) 61096 EST. 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 PATIENT, LEVEL IV Diagnosis: Type 2 diabetes mellitus with other specified complication[ICD10: E11.69] Diagnosis: Dehydration[ICD10: E86.0] Marcela Ha MD, [facility] CPT-4: 10012 05/15/2016 ([id number]) OFFICE VISIT, NEW - LEVEL 3 Diagnosis: Allergic contact dermatitis due to plants, except food[ICD10: L23.7] Madeline Ha MD, [facility] CPT-4: 65892 01/20/2016 Plan of Care Planned Activity Notes Codes Status Date Referral: Andrew Cross Patient informed. Referral info faxed. Completed Visit Plan: cough - improved - continue with inhalers - continue with symbicort - rx for proair for PRN use when pt is feelign short of breath with activity. 11/18/2018 [facility]ment[phone] ([facility] Moderate 11/18/2018 Patient [...] of plan. 11/12/2018 Appointment: [phone] (30 min) Complex 11/12/2018 Patient Education: Patient Medication Summary Completed 11/12/2018 Patient Education: Symbicort - 18-64 - eCopay Completed 11/12/2018 Care Plan: Referral Order SNOMED-CT : 134326432 Pending 11/12/2018 Referral: Niko Mantilla Referral Completed 11/04/2018 Visit Plan: Pneumonia, cough - recent diagnosis of Moraxella Cattharalis - with sensitivity to levaquin - will give 2 wks of levaquin since he had improvement but no full resolution of symptoms. 10/30/2018 Appointment: [phone] [facility] 30 min appointments only in this slot [...] evaluation 10/24/2018 Appointment: Marcela Oshea WPtel: [phone] [phone] (30 min) Complex 10/24/2018 Patient Education: Patient Medication Summary Completed 10/24/2018 Care Plan: Referral Order SNOMED-CT : [id number] Pending 10/24/2018 Visit Plan: Hypotension - discussed [...] controlled. 10/23/2018 Appointment: Melida Ha WPtel: [phone] [facility] (15 min) Moderate 10/23/2018 Patient Education: Patient [...] and plan. 10/21/2018 Appointment: Marcela Oshea WPtel: [phone] (30 min) Complex 10/21/2018 Patient Education: [...] warmth, discharge. 10/17/2018 Appointment: Madeline Kennedy WPtel: [facility] (15 min) Moderate 10/17/2018 Patient Education: Patient [...] acutely worsen. 10/14/2018 Appointment: Marcela Oshea WPtel: [phone] (15 min) Moderate 10/14/2018 Patient Education: Patient Medication Summary Completed 10/14/2018 Care Plan: CHEST X-RAY 2VW FRONTAL&LATL LOINC : 72535-5 Pending 10/14/2018 Visit Plan: URI - Pt [...] allergy spray. 09/30/2018 Appointment: Madeline Kennedy WPtel: [address] [place], [place] [address] (15 min) Moderate 09/30/2018 Patient Education: Patient [...] Hgb A1C 09/09/2018 Appointment: Marcela Oshea WPtel: [address] [place] [phone] (15 min) Moderate 09/09/2018 Patient Education: Patient Medication Summary Completed 09/09/2018 Patient Education: Patient Medication Summary Completed 09/06/2018 Patient Education: Cholesterol Management Completed 09/06/2018 Care Plan: Comp Metabolic Pending 09/06/2018 Care Plan: Cbc With Differential Pending 09/06/2018 Care Plan: %Hba1C LOINC : 22566-6 Pending 09/06/2018 Care Plan: Tsh Pending 09/06/2018 Care Plan: Lipid Pending 09/06/2018 Appointment: Marcela Oshea WPtel: [phone] [phone] (15 min) Moderate 08/26/2018 Appointment: Marcela Oshea WPtel: [phone] [phone] (15 min) Moderate 08/23/2018 Visit Plan: [...] in clinic. 07/22/2018 Appointment: Melida [facility]Ptel[facility] ([facility]) Moderate 07/22/2018 Patient [...] time insomnia. 07/16/2018 Appointment: Marcela Oshea WPtel: [phone] [place] (30 min) Complex 07/16/2018 Patient Education: Patient Medication Summary Completed 07/16/2018 Visit Plan: cough - improved - notify clinic if symptoms do not completely resolve, or with any questions or concerns. 07/01/2018 Appointment: Madeline Kennedy WPtel: [phone] [facility] (15 min) Moderate 07/01/2018 Patient Education: Patient [...] allergy spray. 06/28/2018 Appointment: Madeline Kennedy WPtel: [phone] [facility] (15 min) Moderate 06/28/2018 Patient Education: Patient Medication Summary Completed 06/28/2018 Patient Education: Patient Medication Summary Completed 06/21/2018 Care Plan: Annabel RICKS [place] Pending 06/21/2018 Visit Plan: Diabetes Mellitus [...] home. 06/18/2018 Appointment: [phone] (15 min) Moderate 06/18/2018 Patient [...] swelling improves. 06/04/2018 App[facility]ment: [phone] [place] (15 min) Moderate 06/04/2018 [...] allow for greater blood glucose control. Joint [id number]-[id number]-[id number]- symptoms have improved -stop meloxicam due to upset stomach-call if symptoms return 05/13/2018 Appointment: Marcela Oshea WPtel: [phone] [phone] (30 min) Complex 05/13/2018 Patient Education: Patient Medication Summary Completed 05/13/2018 Visit Plan: Bilateral hip [id number]-[id number]-[id number] IM injection administered today for c/o continued myalgia/arthralgia. Patient to start taking Meloxicam 15mg PO daily. Advised to return to clinic if symptoms do not improve. 05/02/2018 Appointment: Marcela Oshea WPtel: [phone] (30 min) Complex 05/02/2018 Patient Education: [...] readings at home. Diabetes Mellitus -check labs Xbxgvtag-sjwcaaj-gjbo bite-rx for doxycycline-follow up in 2 weeks 04/29/2018 Appointment: Marcela Oshea WPtel: [phone] (15 min) Moderate 04/29/2018 Patient Education: Patient Medication Summary Completed 04/29/2018 Appointment: Melida Ha WPtel: [address] [place], [place] [address] [place] (15 min) Moderate 04/15/2018 Appointment: Marcela Oshea WPtel: [address] [place], [place] [phone] (30 min) Complex 03/21/2018 Visit Plan: Hypertension [...] on cymbalta 03/13/2018 Appointment: [facility] (30 min) Complex 03/13/2018 Patient Education: Patient Medication Summary Completed 03/13/2018 Visit Plan: DM-continue same medications-monitor blood sugars routinely as directed -rx for new glucometer and test strips provided Bipolar-currently depressed-patient start on vraylar-follow up in 2 weeks, sooner if needed. Patient and verbalied understanding of plan. Hypotension- stay off losartan 03/07/2018 Appointment: Marcela Oshea WPtel: [phone] [place] (30 min) Complex 03/07/2018 Patient Education: Patient Medication Summary Completed 03/07/2018 Appointment: Melida Ha [facility]Ptel[facility] (15 min) Moderate 03/04/2018 Visit [...] this patient. 02/28/2018 Appointment: Marcela Oshea WPtel: [phone] (30 min) Complex 02/28/2018 Patient Education: [...] not improving. 02/13/2018 Appointment: Madeline Kennedy WPtel: [facility] (15 min) Moderate 02/13/2018 Patient Education: Patient Medication Summary Completed 02/13/2018 Referral: Sun Glynn Patient informed. Referral info faxed. Completed Visit Plan: DM-weight loss-not checking blood sugars- patient sent for labs today HTN-low ipiup-czjlaad-bafgz labs Callus of foot and fissue of [...] improving. 01/29/2018 Appointment: Marcela Oshea WPtel: [phone] [phone] [place] (30 min) Complex 01/29/2018 Patient Education: Patient Medication Summary Completed 01/29/2018 Care Plan: Comp Metabolic Cancelled 01/29/2018 Care Plan: Cbc With Differential Cancelled 01/29/2018 Care Plan: %Hba1C LOINC : 88864-8 Cancelled 01/29/2018 Care Plan: Referral Order SNOMED-CT : [id number] Cancelled 01/29/2018 Visit Plan: Fatigue, malaise, joint [...] or concerns. 08/27/2017 Appointment: Madeline Kennedy WPtel: [facility] (15 min) Moderate 08/27/2017 Patient Education: Patient [...] today - 08/16/2017 Appointment: Melida Ha WPtel[facility] [place] (30 min) Complex 08/16/2017 Patient Education: Patient Medication Summary Completed 08/16/2017 Patient Education: Obesity Completed 08/16/2017 Appointment: Madeline Kennedy WPtel: [facility] [place] (30 min) Complex 08/07/2017 Visit Plan: Shingles [...] considered contagious. 07/26/2017 Appointment: Madeline Kennedy WPtel: [facility] (15 min) Moderate 07/26/2017 Patient Education: Patient Medication Summary Completed 07/26/2017 Visit Plan: Cellulitis right foot-cultured today in the office-home health to reapply wound vac--appt with wound care on to evaluate for debridement- 07/03/2017 Appointment: Marcela Oshea WPtel: [phone] [phone] (30 min) Complex 07/03/2017 Patient Education: Patient Medication Summary Completed 07/03/2017 Visit Plan: Abrasion left arm - Pt was instructed to keep the wound clean, wash with antibacterial soap, use triple antibiotic ointment, call if redness, pustular drainage, or any other acute concerns. 06/29/2017 Appointment: Marcela Oshea WPtel: [phone] [phone] (15 min) Moderate 06/29/2017 Patient Education: [...] of plan. 06/18/2017 Appointment: Marcela Oshea WPtel: [phone] (15 min) Moderate 06/18/2017 Patient Education: [...] diet-start prilosec 06/07/2017 Appointment: Marcela Oshea WPtel: [phone] (10 min) Simple 06/07/2017 Patient Education: Patient [...] bite-continue doxycycline 05/17/2017 Appointment: Marcela Oshea WPtel: [phone] (30 min) Complex 05/17/2017 Patient Education: Patient [...] if you want blue goo called into [facility]. 05/04/2017 Appointment: Marcela Oshea WPtel: [phone] [phone] (30 min) Complex 05/04/2017 Patient Education: [...] Cough-resolved 03/15/2017 Appointment: Marcela Oshea WPtel: [phone] [phone] (15 min) Moderate 03/15/2017 Patient Education: Patient Medication Summary Completed 03/15/2017 Appointment: Marcela Oshea WPtel: [phone] [phone] (30 min) Complex 03/12/2017 Visit Plan: [...] discussed 02/16/2017 Appointment: Marcela Oshea WPtel: [phone] [phone] (15 min) Moderate 02/16/2017 Patient Education: Patient [...] less controlled. 02/12/2017 Appointment: Marcela Oshea WPtel: [phone] (30 min) Complex 02/12/2017 Patient Education: Patient Medication Summary Completed 02/12/2017 Appointment: Marcela Oshea WPtel: [facility]6 [facility] [place] [address] (30 min) Complex 02/06/2017 Visit Plan: Diabetes [...] will consider 02/05/2017 Appointment: Marcela Oshea WPtel: [phone] (30 min) Complex 02/05/2017 Patient Education: Patient Medication Summary Completed 02/05/2017 Appointment: Marcela Oshea WPtel: [phone] (30 min) Complex 01/30/2017 Visit Plan: Acute confusion-uncontrolled diabetes- chronically noncompliant with treatment and stopped his insulin several months ago-r/o stroke vs DKA-Dr Ha in to evaluate patient-plan to admit for further work up and treatment-patient's called and she transported him to the hospital 01/29/2017 Appointment: Marcela Oshea WPtel: [phone] (30 min) Complex 01/29/2017 Patient Education: Patient Medication Summary Completed 01/29/2017 Patient Education: Obesity Completed 01/29/2017 Visit Plan: Right foot pain-MRI shows foreign body-appt with Dr Grewal for evaluation on Sunday. 10/13/2016 Appointment: Marcela Oshea WPtel: [address] [place], [place] [phone] [place] (15 min) Moderate 10/13/2016 Patient Education: Patient Medication Summary Completed 10/13/2016 Appointment: Marcela Oshea WPtel: [address] [place], [place] [phone] (30 min) Complex 10/12/2016 Visit Plan: Right foot ppui-qsnohmeq-iqfvx washer dropped on foot-xray negative but pain continues to increase-recommend MRI of foot for further evaluation-refer to wound care for lesions on right foot, patient has diabetes and history of osteomyelitis-culture obtained today-continue oral abx- follow up in the office on , sooner if needed 10/09/2016 Visit Plan: Right foot zoit-znkzlfkm-vovbk washer dropped on foot-xray negative but pain continues to increase-recommend MRI of foot for further evaluation-refer to wound care for lesions on right foot, patient has diabetes and history of osteomyelitis-culture obtained today-continue oral abx- follow up in the office on , sooner if needed 10/09/2016 Visit Plan: Right foot vlqa-qywfzqgc-ykadj washer dropped on foot-xray negative but pain continues to increase-recommend MRI of foot for further evaluation-refer to wound care for lesions on right foot, patient has diabetes and history of osteomyelitis-culture obtained today-continue oral abx- follow up in the office on , sooner if needed 10/09/2016 Appointment: Marcela Oshea WPtel: [address] [place], [place] [phone] [place] (30 min) Complex 10/09/2016 Patient Education: Patient Medication Summary Completed 10/09/2016 Visit Plan: Cellulitis - continue with oral antibiotics as previously directed, return to clinic as previously directed, call for acute change in symptoms, worsening redness, warmth, discharge. 10/06/2016 Appointment: Marcela Oshea WPtel: [address] [place], [place] [phone] [place] (10 min) Simple 10/06/2016 Patient Education: Patient Medication Summary Completed 10/06/2016 Appointment: Marcela Oshea WPtel: [address] [place], [place] [phone] (30 min) Complex 08/24/2016 Referral: Sun Glynn Referral Completed 07/21/2016 Visit Plan: Low back pain- history of spinal fusion- patient for xray lumbar spine-RX sent to [facility] pharmacy and instructed on use-topical voltaren samples provided and instructed on use. Ok to use tylenol as needed as well. The patient is to call the office if the pain is worsening or does not improve. Pressure ulcer left 4th toe-refer to Dr Glynn for evaluation 07/18/2016 Appointment: Marcela Oshea WPtel: [phone] (30 min) Complex 07/18/2016 Patient Education: Patient Medication Summary Completed 07/18/2016 Patient Education: Obesity Completed 07/18/2016 Care Plan: Referral Order SNOMED-CT : [id number] Cancelled 07/18/2016 Visit Plan: Diabetes Mellitus - [...] glucose control. 06/22/2016 Appointment: Marcela Oshea WPtel: [phone] (30 min) Complex 06/22/2016 Patient Education: [...] today 05/23/2016 Appointment: Marcela Oshea WPtel: [phone] [phone] (30 min) Complex 05/23/2016 Patient Education: Patient [...] of plan. 05/15/2016 Appointment: Marcela Oshea WPtel: [phone] (15 min) Moderate 05/15/2016 Patient Education: Patient [...] for fracture from injury . Right foot wabt-inzoccle-geqnp washer dropped on foot-xray negative but pain [...] for fracture from injury . Right foot qcxu-szmbjqvy-gamru washer dropped on foot-xray negative but pain [...] swab prilosec over the counter twice daily gardeniaflex 500mg three times daily x 7 days [...] bronchoscopy. Patient verbalized understanding of plan. . Fatigue, malaise, joint pains - pt [...] readings are starting to become less controlled. Lbxbbjwkm-whshuakx-oqsgtdmp to monitor Generalized weakness-refer for PT-patient refuses [...] allow for greater blood glucose control. Joint tzfd-utkmwrgs-nvbcytu-symptoms have improved -stop meloxicam due to upset [...] if you want anai edge called into [facility]. . Hypertension - well controlled - continue [...] readings at home. Diabetes Mellitus -check labs Autmqvxp-mncrznn-ijmo bite-rx for doxycycline-follow up in 2 weeks [...] voltaren gel ulcer left 4th toe-refer to shot tube machine tender . Low back pain- history of spinal fusion-patient for xray lumbar spine-RX sent to [facility] pharmacy and instructed on use-topical voltaren [...] for fracture from injury . Right foot vjbf-lfdnhfdf-ptloy washer dropped on foot-xray negative but pain [...] or if they worsen. . Bilateral hip tpat-bsjozuqi-jnlidrp IM injection administered today for c/o continued [...] blood sugars-patient sent for labs today HTN-low hivti-gojjiga-pahie labs Callus of foot and fissue of [...]
[2019-01-01] MEDS ORDERED: diphenhydrAMINE 50 MG/ML INJ (BENADRYL) ONE (14:23)
[2019-01-01] MEDS ORDERED: FAMOTIDINE 20MG/2ML IV (PEPCID) ONE (14:23)
--- OUTSIDE RECORDS SUMMARY | 2019-01-01 14:25 | XMS REPORT | CCD ---
Author Author Madeline Kennedy MD, [facility] Address [address] [place] [address] Phone Care Team Providers Care Vegetable Cook Name Role Phone PP Unavailable CCM Unavailable Summary Purpose Interface Exchange Insurance Providers Payer name Policy type / Coverage type Covered republican ID Effective Begin Date Effective End Date Blue Cross Blue Shield [facility] Blue Cross/Blue Shield [id number] Unknown Family history Father Diagnosis Age At Onset Hyperlipidemia Unknown Heart Attack Unknown Mother Diagnosis Age At Onset Hypertension Unknown Social History Social History Element Codes Description Effective Dates Marital status Unknown Mignon 01/20/2016 Number of children Unknown 4 01/20/2016 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/[address]: 003018878 Never smoker 01/20/[address]: 577316280 Never drinks alcohol 01/20/2016 Allergies, Adverse Reactions, [...] Start Date Stop Date Status Fill Instructions Cymbalta 30 mg capsule,delayed release RxNorm: 329840 1 Capsule(s) PO QAM 11/13/2018 06/10/2019 Active Lyrica 50 mg capsule RxNorm: 799919 Capsule(s) PO daily 201801/11/2019 Active Symbicort 160 mcg-4.5 mcg/actuation HFA aerosol inhaler RxNorm: 5019762 2 Puff(s) INH BID 11/12/2018 12/11/2018 Active albuterol sulfate 2.5 mg/3 mL (0.083 %) solution for nebulization RxNorm: 521634 3 Milliliter(s) INH UD 11/07/2018 No Stop Date Active azithromycin 500 mg tablet RxNorm: 369311 500mg on day 1 then 250 mg daily x 4 more day Tablet(s) PO 11/07/20182018 Inactive 500mg on day 1 and then 250mg daily 2-4 cefdinir 300 mg capsule RxNorm: 997088 1 Capsule(s) PO BID 01/201911/13/2018 Inactive azithromycin 500 mg tablet RxNorm: 592735 500mg on day 1 then 250 mg daily x 4 more day Tablet(s) PO 11/07/20182018 Inactive 500mg on day 1 and then 250mg daily 2-4 cefdinir 300 mg capsule RxNorm: 149975 1 Capsule(s) PO BID 01/201911/06/2018 Inactive Levaquin 500 mg tablet RxNorm: 760695 1 Tablet(s) PO daily TAKE ONE TABLET BY MOUTH DAILY UNTIL GONE 10/31/20182018 Inactive Levaquin 500 mg tablet RxNorm: 139555 1 Tablet(s) PO daily 11/12/2018 Inactive valsartan 80 mg tablet RxNorm: 108614 1/2 Tablet(s) PO daily 04/20/2019 Active doxycycline hyclate 100 mg tablet RxNorm: 0608442 1 Tablet(s) PO BID 10/21/2018 10/27/2018 Inactive ketorolac 60 mg/2 mL intramuscular solution RxNorm: 7723056 Milliliter(s) IM 10/21/2018 10/21/2018 Inactive Levaquin 500 mg tablet RxNorm: 674680 1 Tablet(s) PO daily 10/31/2018 Inactive Tessalon Perles 100 mg capsule RxNorm: 276933 1-2 Capsule(s) PO TID PRN 10/14/2018 No Stop Date Active albuterol sulfate 2.5 mg/3 mL (0.083 %) solution for nebulization RxNorm: 944929 3 Milliliter(s) INH UD 10/14/201812/2018 Inactive Levaquin 500 mg tablet RxNorm: 998723 1 Tablet(s) PO daily 08/201810/16/2018 Inactive Coreg 6.25 mg tablet RxNorm: 314878 TAKE ONE TABLET BY MOUTH TWICE A DAY 09/30/2018 03/28/2019 Active albuterol sulfate 2.5 mg/3 mL (0.083 %) solution for nebulization RxNorm: 878656 3 Milliliter(s) INH UD 09/30/201807/2018 Inactive Kenalog 40 mg/mL suspension for injection RxNorm: 5554421 1.5 Milliliter(s) Inj 09/30/2018 09/30/2018 Inactive Keflex 500 mg capsule RxNorm: 464998 1 Capsule(s) PO TID 201710/03/2018 Inactive prednisone 20 mg tablet RxNorm: 502961 2 Tablet(s) PO daily 09/29/2018 Inactive Kenalog 40 mg/mL suspension for injection RxNorm: 7440293 Milliliter(s) Inj 09/11/2018 09/11/2018 Inactive Zyrtec 10 mg tablet RxNorm: 2637918 1 Tablet(s) PO daily 09/0910/08/2018 Inactive Keflex 500 mg capsule RxNorm: 238904 1 Capsule(s) PO TID 201709/15/2018 Inactive Tresiba FlexTouch U-200 insulin 200 unit/mL (3 mL) subcutaneous pen RxNorm: 4024509 50 Unit(s) SQ daily 08/30/2018 08/29/2018 Inactive please give him 30 day supply Tresiba FlexTouch U-200 insulin 200 unit/mL (3 mL) subcutaneous pen RxNorm: 4164928 50 Unit(s) SQ daily 08/30/2018 09/28/2018 Inactive please give him 30 day supply Novolog Flexpen U-100 Insulin aspart 100 unit/mL subcutaneous RxNorm: 9446875 8 Unit(s) SQ AC 08/13/2018 No Stop Date Active Novolog Flexpen U-100 Insulin aspart 100 unit/mL subcutaneous RxNorm: 6309102 8 Unit(s) SQ AC 07/22/20182017 Inactive this is an update on his medication Novolog Flexpen U-100 Insulin aspart 100 unit/mL subcutaneous RxNorm: 7287713 12 Unit(s) SQ AC 07/05/20182017 Inactive this is an update on his medication Ronaldujose SoloStar U-300 Insulin 300 unit/mL (1.5 mL) subcutaneous pen RxNorm: 5444010 INJECT 50 UNITS UNDER THE SKIN DAILY 07/01/2018 08/29/2018 Inactive Mucinex 600 mg tablet, extended release RxNorm: 592666 1 Tablet(s) PO BID 06/28/2018 07/04/2018 Inactive Zofran 4 mg tablet RxNorm: 223157 1 Tablet(s) PO TID as needed nausea 06/28/2018 07/02/2018 Inactive Kenalog 40 mg/mL suspension for injection RxNorm: 1008420 Milliliter(s) Inj 06/28/2018 06/28/2018 Inactive Flonase Allergy Relief 50 mcg/actuation nasal spray, suspension RxNorm: 4305447 1 [place] NASAL BID 06/28/20182017 Inactive Lyrica 50 mg capsule RxNorm: 316922 Capsule(s) PO daily 201707/07/2018 Inactive Novolog Flexpen U-100 Insulin aspart 100 unit/mL subcutaneous RxNorm: 7465144 10 Unit(s) SQ AC 06/18/20182017 Inactive this is an update on his medication Lasix 20 mg tablet RxNorm: 269134 1 Tablet(s) PO BIW 201707/02/2018 Inactive atorvastatin 80 mg tablet RxNorm: 125001 1 Tablet(s) PO QHS 04/201812/06/2018 Active clonazepam 1 mg tablet RxNorm: 072312 2 Tablet(s) PO HS 201706/04/2019 Active clonazepam 1 mg tablet RxNorm: 593774 2 Tablet(s) PO HS as needed 06/10/2018 06/09/2018 Inactive Lyrica 50 mg capsule RxNorm: 546458 Capsule(s) PO daily 201707/08/2018 Inactive Lasix 20 mg tablet RxNorm: 151087 1 Tablet(s) PO TIW 201706/11/2018 Inactive Toujeo SoloStar U-300 Insulin 300 unit/mL (1.5 mL) subcutaneous pen RxNorm: 5735135 50 Unit(s) SQ daily 05/07/2018 06/30/2018 Inactive meloxicam 15 mg tablet RxNorm: 680182 15 Milligram(s) PO daily 05/02/2018 05/12/2018 Inactive ketorolac 30 mg/mL injection solution RxNorm: 204735 2 Milliliter(s) Inj 05/02/2018 05/02/2018 Inactive Toujeo SoloStar U-300 Insulin 300 unit/mL (1.5 mL) subcutaneous pen RxNorm: 5773395 45 Unit(s) daily 04/29/2018 Inactive clonazepam 1 mg tablet RxNorm: 614771 1 Tablet(s) PO Q8 as needed 04/29/2018 06/09/2018 Inactive doxycycline hyclate 100 mg tablet RxNorm: 2815208 1 Tablet(s) PO BID 04/29/2018 05/12/2018 Inactive Cymbalta 30 mg capsule,delayed release RxNorm: 865918 1 Capsule(s) PO QAM 03/13/2018 10/08/2018 Inactive Lexapro 10 mg tablet RxNorm: 539661 1 Tablet(s) PO QPM 201703/03/2018 Inactive Toujeo SoloStar U-300 Insulin 300 unit/mL (1.5 mL) subcutaneous pen RxNorm: 6527060 20 Unit(s) daily 02/28/2018 Inactive Protonix 40 mg tablet,delayed release RxNorm: 493125 1 Tablet(s) PO daily 01/29/2018 06/09/2018 Inactive clonazepam 1 mg tablet RxNorm: 193545 1 Tablet(s) PO Q8 as needed 12/12/2017 03/10/2018 Inactive Tamiflu 75 mg capsule RxNorm: 086297 1 Capsule(s) PO BID 201712/03/2017 Inactive doxycycline hyclate 100 mg capsule RxNorm: 6423590 1 Capsule(s) PO BID 09/07/2017 09/20/2017 Inactive doxycycline hyclate 100 mg capsule RxNorm: 0786012 1 Capsule(s) PO BID 08/27/2017 09/06/2017 Inactive prednisone 20 mg tablet RxNorm: 739289 2 Tablet(s) PO daily 08/31/2017 Inactive clopidogrel 75 mg tablet RxNorm: 369775 1 Tablet(s) PO daily 06/09/2018 Inactive atorvastatin 40 mg tablet RxNorm: 939250 1 Tablet(s) PO QHS 02/27/2018 Inactive losartan 25 mg tablet RxNorm: 930335 TAKE ONE TABLET BY MOUTH DAILY 08/22/2017 06/09/2018 Inactive Toujeo SoloStar 300 unit/mL (1.5 mL) subcutaneous insulin pen RxNorm: 1555170 45 Unit(s) daily 08/17/2017 08/20/2017 Inactive mupirocin 2 % topical ointment RxNorm: 802041 1 Application TOP TID to the lesions on chest 08/16/2017 08/25/2017 Inactive Toujeo SoloStar 300 unit/mL (1.5 mL) subcutaneous insulin pen RxNorm: 7853141 40 Unit(s) daily 08/16/2017 08/16/2017 Inactive valacyclovir 1 gram tablet RxNorm: 801110 1 Tablet(s) PO TID 08/01/2017 Inactive clonazepam 1 mg tablet RxNorm: 633986 1 Tablet(s) PO Q8 as needed 07/03/2017 09/30/2017 Inactive Levaquin 500 mg tablet RxNorm: 645301 1 Tablet(s) PO daily 06/25/2017 Inactive Levaquin 500 mg tablet RxNorm: 748564 1 Tablet(s) PO daily 06/21/2017 Inactive losartan 25 mg tablet RxNorm: 954810 1 Tablet(s) PO daily 201608/16/2017 Inactive nystatin 100,000 unit/mL oral suspension RxNorm: 957671 5 Milliliter(s) PO QID Swish et swallow 06/18/2017 06/17/2017 Inactive nystatin 100,000 unit/mL oral suspension RxNorm: 902950 5 Milliliter(s) PO QID Swish et swallow 06/18/2017 06/27/2017 Inactive Cipro 500 mg tablet RxNorm: 799508 1 Tablet(s) PO BID 201606/18/2017 Inactive Cipro 500 mg tablet RxNorm: 632991 1 Tablet(s) PO BID 201606/11/2017 Inactive Toujeo SoloStar 300 unit/mL (1.5 mL) subcutaneous insulin pen RxNorm: 5747005 INJECT 10 UNITS UNDER THE SKIN DAILY 06/12/2017 08/15/2017 Inactive Keflex 500 mg capsule RxNorm: 539997 1 Capsule(s) PO TID 201606/13/2017 Inactive doxycycline hyclate 100 mg capsule RxNorm: 2690487 1 Capsule(s) PO BID 05/17/2017 05/21/2017 Inactive doxycycline hyclate 100 mg capsule RxNorm: 8643078 1 Capsule(s) PO BID 05/11/2017 05/16/2017 Inactive losartan 25 mg tablet RxNorm: 790403 1 Tablet(s) PO daily 201606/17/2017 Inactive atorvastatin 40 mg tablet RxNorm: 757258 1 Tablet(s) PO daily 03/01/2017 08/23/2017 Inactive clopidogrel 75 mg tablet RxNorm: 011327 1 Tablet(s) PO daily 08/23/2017 Inactive Flonase Allergy Relief 50 mcg/actuation nasal spray, suspension RxNorm: 4323547 2 [place] NASAL daily 02/16/20172016 Inactive Augmentin 875 mg-125 mg tablet RxNorm: 673119 1 Tablet(s) PO BID 02/16/2017 02/22/2017 Inactive GET PROBIOTIC TO TAKE WHILE ON ABX Tamiflu 75 mg capsule RxNorm: 689912 1 Capsule(s) PO BID 201602/20/2017 Inactive ceftriaxone 500 mg solution for injection RxNorm: 3306796 1 Milliliter(s) Inj 02/16/2017 02/16/2017 Inactive Kenalog 40 mg/mL suspension for injection RxNorm: 9595251 1 Milliliter(s) Inj 02/16/2017 02/16/2017 Inactive Toujeo SoloStar 300 unit/mL (1.5 mL) subcutaneous insulin pen RxNorm: 4723437 25 Unit(s) SQ QAM 02/12/2017 06/10/2017 Inactive Toujeo SoloStar 300 unit/mL (1.5 mL) subcutaneous insulin pen RxNorm: 4720268 10 Unit(s) SQ QAM 02/05/2017 02/11/2017 Inactive lisinopril 10 mg tablet RxNorm: 527115 1 Tablet(s) PO daily 02/28/2017 Inactive atorvastatin 40 mg tablet RxNorm: 204227 1 Tablet(s) PO daily 02/01/2017 02/28/2017 Inactive doxycycline hyclate 100 mg capsule RxNorm: 9947286 1 Capsule(s) PO BID 02/01/2017 02/10/2017 Inactive clonazepam 1 mg tablet RxNorm: 864510 1 Tablet(s) PO Q8 as needed 10/09/2016 01/05/2017 Inactive ceftriaxone 1 gram solution for injection RxNorm: 4153857 Inj 10/06/2016 10/06/2016 Inactive cyclobenzaprine 10 mg tablet RxNorm: 000276 1/2-1 Tablet(s) PO TID PRN 07/18/2016 01/28/2017 Inactive clonazepam 1 mg tablet RxNorm: 820118 1 Tablet(s) PO Q8 as needed 05/31/2016 05/29/2016 Inactive clonazepam 1 mg tablet RxNorm: 987965 1 Tablet(s) PO Q8 as needed 05/31/2016 08/28/2016 Inactive Toujeo SoloStar 300 unit/mL (1.5 mL) subcutaneous insulin pen RxNorm: 9135114 10 Unit(s) SQ daily 05/23/2016 01/28/2017 Inactive Crestor 10 mg tablet RxNorm: 043614 1 Tablet(s) PO QHS 201501/28/2017 Inactive Crestor 10 mg tablet RxNorm: 283063 1 Tablet(s) PO QHS 201505/18/2016 Inactive clonazepam 1 mg tablet RxNorm: 455825 1 Tablet(s) PO Q8 as needed 04/25/2016 05/30/2016 Inactive prednisone 20 mg tablet RxNorm: 887900 3 Tablet(s) PO daily 06/201602/10/2016 Inactive prednisone 20 mg tablet RxNorm: 752725 3 Tablet(s) PO daily 06/201605/14/2016 Inactive Kenalog 40 mg/mL suspension for injection RxNorm: 0933509 Milliliter(s) Inj 01/20/2016 01/20/2016 Inactive aspirin 81 mg tablet,delayed release RxNorm: 598828 1 Tablet(s) PO daily No Start Date Active Brilinta 90 mg tablet RxNorm: 1570337 1 Tablet(s) PO BID No Start Date Active acetaminophen 500 mg tablet RxNorm: 836802 1-2 Tablet(s) PO as needed No Start Date Active clopidogrel 75 mg tablet RxNorm: 793647 1 Tablet(s) PO daily No Start Date 02/28/2017 Inactive Novolog Flexpen U-100 Insulin aspart 100 unit/mL subcutaneous RxNorm: 3505933 5 units with breakfast lunch and 10 supper Unit(s) SQ No Start Date 06/17/2018 Inactive clonazepam 1 mg tablet RxNorm: 745664 1 Tablet(s) PO QHS No Start Date 04/24/2016 Inactive Coreg 6.25 mg tablet RxNorm: 072692 1 Tablet(s) PO BID No Start Date 09/29/2018 Inactive acyclovir 400 mg tablet RxNorm: 389021 2 Tablet(s) PO 5x daily No Start Date 02/28/2017 Inactive Lyrica 50 mg capsule RxNorm: 427966 Capsule(s) PO BID No Start Date 06/09/2018 Inactive Vraylar 3 mg capsule RxNorm: 4126512 1 Capsule(s) PO daily No Start Date 03/12/2018 Inactive valsartan 80 mg tablet RxNorm: 364914 1 Tablet(s) PO daily No Start Date 10/22/2018 Inactive Medication Administered Medication Codes Instructions Start Date Status ketorolac 60 mg/2 mL intramuscular solution RxNorm: 1278569 Milliliter 10/21/2018 No longer Active Kenalog 40 mg/mL suspension for injection RxNorm: 9043359 1.5Milliliter 09/30/2018 No longer Active Kenalog 40 mg/mL suspension for injection RxNorm: 5844608 Milliliter 09/11/2018 No longer Active Kenalog 40 mg/mL suspension for injection RxNorm: 6543796 Milliliter 06/28/2018 No longer Active ketorolac 30 mg/mL injection solution RxNorm: 936672 2Milliliter 05/02/2018 No longer Active ceftriaxone 500 mg solution for injection RxNorm: 2695079 1Milliliter 02/16/2017 No longer Active Kenalog 40 mg/mL suspension for injection RxNorm: 0217743 1Milliliter 02/16/2017 No longer Active ceftriaxone 1 gram solution for injection RxNorm: 5386715 10/06/2016 No longer Active Kenalog 40 mg/mL suspension for injection RxNorm: 0595616 Milliliter 01/20/2016 No longer Active Immunizations Vaccine Codes Date Status Influenza CVX: 141 07/22/2018 completed Influenza CVX: 141 08/16/2017 completed Assessments Condition Codes Effective Dates Pneumonia due to other Gram-negative bacteria ICD-10: J15.6 ICD-9: 482.83 11/12/2018 Cough ICD-10: R05 ICD-9: 786.2 11/12/2018 Pain in joints of right hand [...] Reason For Visit Effective Dates Notes cough 11/12/2018 cough 10/30/2018 finger pain 10/24/2018 [...] Item Item Code Result Date Culture Sputum 054671 LOWER RESPIRATORY TRACT CULTURE SEE NOTES 10/16/2018 LIPID GRP 5927144 CHOLESTEROL TNP:Duplicate Order 09/10/2018 LIPID GRP 3738902 Triglyceride TNP:Duplicate Order 2017 LIPID GRP 6738572 HDL CHOLESTEROL TNP:Duplicate Order 2017 LIPID GRP 1468043 Chol/HDL Ratio TNP:Duplicate Order 2017 LIPID GRP 2637039 LDL Cholesterol TNP:Duplicate Order 2017 A1C HPLC 6899829 Hgb A1c 87915-4 TNP:Duplicate Order 2017 C Diff An [id number] GDH TNP:Lab Request 06/22/2018 C Diff An [id number] Toxin A/B TNP:Lab Request 06/22/2018 C Diff An [id number] C Diff Analyzer TNP:Lab Request 2017 C Diff An [id number] IC OK? TNP:Lab Request 06/22/2018 CBC 1975524 WBC 6.4 10e9/L 05/02/2018 CBC 8680476 RBC 5.60 10e12/L 05/02/2018 CBC 0935509 HEMOGLOBIN 17.0 g/dL 05/02/2018 CBC 0891332 HEMATOCRIT 48.0 % 05/02/2018 CBC 7705651 MCV 85.7 fL 05/02/2018 CBC 0431255 MCH 30.4 pg 05/02/2018 CBC 5444675 MCHC 35.4 g/dL 05/02/2018 CBC 0138614 PLATELET COUNT 166 10e9/L 05/02/2018 CBC 5542718 Mean Plt Volume 11.6 fL 05/02/2018 CBC 9695492 Neut Auto 48.6 % 05/02/2018 CBC 3194000 Lymph Auto 41.7 % 05/02/2018 CBC 2859962 [place] Auto 8.1 % 05/02/2018 CBC 6432306 RDW 13.1 % 05/02/2018 CBC 5175119 Eos Auto 1.1 % 05/02/2018 CBC 2152803 Baso Auto 0.5 % 05/02/2018 CBC 8347030 Neutrophil Abs 3.11 10e9/L 05/02/2018 CBC 8730532 Lymphocyte Abs 2.67 10e9/L 05/02/2018 CBC 5037402 Monocyte Abs 0.52 10e9/L 05/02/2018 CBC 0817795 Eosinophil Abs 0.07 10e9/L 05/02/2018 CBC 7362783 RDW-SD 40.0 fL 05/02/2018 CBC 4271952 Basophil Abs 0.03 10e9/L 05/02/2018 CHEM 14 3631068 AST 17 U/L 05/02/2018 CHEM 14 9495987 ALT 17 U/L 05/02/2018 CHEM 14 4669014 BUN 17 mg/dL 05/02/2018 CHEM 14 1935295 ALBUMIN 4.0 g/dL 05/02/2018 CHEM 14 4582799 CHLORIDE 97 mmol/L 05/02/2018 CHEM 14 5825675 Bili Total 0.9 mg/dL 05/02/2018 CHEM 14 7540983 ALK PHOS 67 U/L 05/02/2018 CHEM 14 4413338 SODIUM 135 mmol/L 05/02/2018 CHEM 14 9311118 CREATININE 1.18 mg/dL 05/02/2018 CHEM 14 3748159 CALCIUM 9.4 mg/dL 05/02/2018 CHEM 14 0000749 POTASSIUM 4.4 mmol/L 05/02/2018 CHEM 14 9723009 TOTAL PROTEIN 6.9 g/dL 05/02/2018 CHEM 14 8806556 GLUCOSE 316 mg/dL 05/02/2018 CHEM 14 5950609 Bicarbonate 29 mmol/L 05/02/2018 CHEM 14 5301611 AGAP 9 mmol/L 05/02/2018 MEAN GLUC 4611850 Calc Mean Gluc 283 mg/dL 05/02/2018 A1C HPLC 3673728 Hgb A1c 85566-4 11.5 % 05/02/2018 GFR CALC 6344297 GFR Non Afr Amr >60 mL/min 05/02/2018 GFR CALC 1964528 GFR Afr Amr >60 mL/min 05/02/2018 JIC Gold 9923515 JIC Gold Complete 02/28/2018 GFR CALC 3412151 GFR Non Afr Amr >60 mL/min 02/28/2018 GFR CALC 0539470 GFR Afr Amr >60 mL/min 02/28/2018 UA W/CII 1456537 UA Urine Appear Normal 02/28/2018 UA W/CII 9900889 UA Protein 1+ 02/28/2018 UA W/CII 3465147 UA Hemoglobin Negative 02/28/2018 UA W/CII 7578564 UA Glucose 4+ 02/28/2018 UA W/CII 2539610 UA Ketones Trace 02/28/2018 UA W/CII 5359271 UA pH 5.5 02/28/2018 UA W/CII 4452894 U Spec [place] 1.015 02/28/2018 UA W/CII 1551280 UA Bilirubin Negative 02/28/2018 UA W/CII 5328722 UA Nitrite NEG 02/28/2018 UA W/CII 8965845 UA Leuk Esteras Negative 02/28/2018 MICR 4119119 UA WBC/hpf 1 02/28/2018 MICR 1725075 UA RBC hpf 2 02/28/2018 MICR 0005408 UA WBC auto 3.8 /uL 02/28/2018 MICR 1794281 UA RBC auto 12.2 /uL 02/28/2018 MICR 6513395 UA SQ EPI auto 2.3 /uL 02/28/2018 MICR 3480667 UA H Cast auto 0.10 /uL 02/28/2018 CBC 3931919 WBC 6.4 10e9/L 02/28/2018 CBC 3520901 RBC 5.51 10e12/L 02/28/2018 CBC 8686795 HEMOGLOBIN 16.7 g/dL 02/28/2018 CBC 5185189 HEMATOCRIT 46.9 % 02/28/2018 CBC 9676941 MCV 85.1 fL 02/28/2018 CBC 5007736 MCH 30.3 pg 02/28/2018 CBC 8773444 MCHC 35.6 g/dL 02/28/2018 CBC 8575538 PLATELET COUNT 173 10e9/L 02/28/2018 CBC 3025417 Mean Plt Volume 11.6 fL 02/28/2018 CBC 2650894 Neut Auto 51.8 % 02/28/2018 CBC 4608369 Lymph Auto 39.9 % 02/28/2018 CBC 4435616 [place] Auto 7.3 % 02/28/2018 CBC 9118052 Eos Auto 0.8 % 02/28/2018 CBC 1958310 RDW 13.3 % 02/28/2018 CBC 0055529 Baso Auto 0.2 % 02/28/2018 CBC 5294322 Neutrophil Abs 3.32 10e9/L 02/28/2018 CBC 2244739 Lymphocyte Abs 2.55 10e9/L 02/28/2018 CBC 9409429 Monocyte Abs 0.47 10e9/L 02/28/2018 CBC 0670988 Eosinophil Abs 0.05 10e9/L 02/28/2018 CBC 6219344 Basophil Abs 0.01 10e9/L 02/28/2018 CBC 2097584 RDW-SD 40.8 fL 02/28/2018 CHEM 14 1240007 AST 17 U/L 02/28/2018 CHEM 14 7846361 ALT 17 U/L 02/28/2018 CHEM 14 7681555 BUN 20 mg/dL 02/28/2018 CHEM 14 3532636 ALBUMIN 4.1 g/dL 02/28/2018 CHEM 14 7816068 CHLORIDE 97 mmol/L 02/28/2018 CHEM 14 1999765 Bili Total 1.3 mg/dL 02/28/2018 CHEM 14 3988394 ALK PHOS 78 U/L 02/28/2018 CHEM 14 4172258 SODIUM 135 mmol/L 02/28/2018 CHEM 14 6572175 CREATININE 1.09 mg/dL 02/28/2018 CHEM 14 9035064 CALCIUM 9.6 mg/dL 02/28/2018 CHEM 14 5887009 POTASSIUM 3.8 mmol/L 02/28/2018 CHEM 14 3912510 TOTAL PROTEIN 7.3 g/dL 02/28/2018 CHEM 14 2118298 GLUCOSE 349 mg/dL 02/28/2018 CHEM 14 2338021 Bicarbonate 29 mmol/L 02/28/2018 CHEM 14 9388245 AGAP 9 mmol/L 02/28/2018 [place] Spotted Fever Igg/Igm 456769 FEI MT SPOTTED FEVER IGM EIA . 09/05/2017 [place] Spotted Fever Igg/Igm 008873 RMSF, IGM 0.17 index 09/05/2017 [place] Spotted Fever Igg/Igm 772581 FEI MT SPOTTED FEVER IGG EIA FLEX . 09/05/2017 [place] Spotted Fever Igg/Igm 417950 RMSF, IGG SCREEN-FLEX Positive 09/05/2017 Fei Mtn Spot'D Fev Igg 152608 RMSF, IGG -TITER IFA <1:64 11/2016 Ehrlichia Chaffeensis Antibody Igm 052594 EHRLICHIA CHAFFEENSIS IGM < 1:16 09/03/2017 Ehrlichia Chaffeensis Antibody Igg 098449 EHRLICHIA CHAFFEENSIS IGG <1:64 09/03/2017 Lymes Disease Total Antibodies With Western Blot Reflex B. BURGDORFERI, IGG/IGM 0.223 08/30/2017 Lymes Disease Total Antibodies With Western Blot Reflex C-Reactive Protein Qnt Crqnt CRP 0.00 mg/dl 08/27/2017 Sed Rate Ord21 ESR 8 mm/hr 08/27/2017 Comp Metabolic Uha354 NA 135 mEq/L 08/16/2017 Comp Metabolic Ofi370 K 4.1 mEq/L 08/16/2017 Comp Metabolic Pii706 CL 98 mEq/L 08/16/2017 Comp Metabolic Nvx947 CO2 28.0 mEq/L 08/16/2017 Comp Metabolic Sgf625 ANION GAP 13 08/16/2017 Comp Metabolic Jmh553 GLUCOSE 299 mg/dL 08/16/2017 Comp Metabolic Dlx821 Creat 0.9 mg/dL 08/16/2017 Comp Metabolic Duw209 eGFR 90 ml/min/1.73m2 08/16/2017 Comp Metabolic Anl870 BUN 20 mg/dL 08/16/2017 Comp Metabolic Oim999 B/C Ratio 21.5 Ratio 08/16/2017 Comp Metabolic Zjq077 CALCIUM 9.2 mg/dL 08/16/2017 Comp Metabolic Hqi329 ALK PHOS 84 U/L 08/16/2017 Comp Metabolic Yvd754 AST(SGOT) 19 U/L 08/16/2017 Comp Metabolic Rwt339 ALT(SGPT) 24 U/L 08/16/2017 Comp Metabolic Zuh160 BILI T 1.1 mg/dL 08/16/2017 Comp Metabolic Rig909 ALBUMIN 4.2 g/dL 08/16/2017 Comp Metabolic Fxa879 TPRO 7.2 g/dL 08/16/2017 Comp Metabolic Hub522 GLOB 3.0 g/dL 08/16/2017 Comp Metabolic Dxw980 A/G Ratio 1.4 Ratio 08/16/2017 Comp Metabolic Mcj527 Osmo 284 mOsmo 08/16/2017 %Hba1C Naf493 % HbA1c 52593-5 12.5 % 08/16/2017 %Hba1C Vlo568 Gluc Ave 312 mg/dL 08/16/2017 Urine Culture Ucult Complete NO Growth Day 2 06/23/2017 Urine Culture Ucult Preliminary NO Growth Day 1 06/23/2017 C RAP A SC [id number] Strep A Negative 06/08/2017 %Hba1C Lxz097 % HbA1c 51723-2 9.5 % 05/04/2017 %Hba1C Mtj375 Gluc Ave 226 mg/dL 05/04/2017 Tsh Ord6 [...] 31.7 pg 05/04/2017 Cbc With Differential Ord2 [place]% 8.5 % 05/04/2017 Cbc With Differential Ord2 [...] 2.48 K/ul 05/04/2017 Cbc With Differential Ord2 [place] ABS# 0.5 K/ul 05/04/2017 Cbc With Differential Ord2 Eos ABS# 0.1 K/ul 05/04/2017 Cbc With Differential Ord2 Baso ABS# 0.0 K/ul 05/04/2017 Comp Metabolic Tzw516 NA 135 mEq/L 05/04/2017 Comp Metabolic Fst077 K 4.2 mEq/L 05/04/2017 Comp Metabolic Hzg310 CL 99 mEq/L 05/04/2017 Comp Metabolic Bns873 CO2 26.0 mEq/L 05/04/2017 Comp Metabolic Izm167 ANION GAP 14 05/04/2017 Comp Metabolic Auv944 GLUCOSE 277 mg/dL 05/04/2017 Comp Metabolic Uvt062 Creat 0.9 mg/dL 05/04/2017 Comp Metabolic Bgw773 eGFR 96 ml/min/1.73m2 05/04/2017 Comp Metabolic Xzo419 BUN 23 mg/dL 05/04/2017 Comp Metabolic Jqk396 B/C Ratio 26.1 Ratio 05/04/2017 Comp Metabolic Fgl617 CALCIUM 8.9 mg/dL 05/04/2017 Comp Metabolic Qul276 ALK PHOS 81 U/L 05/04/2017 Comp Metabolic Hsi793 AST(SGOT) 21 U/L 05/04/2017 Comp Metabolic Dwj572 ALT(SGPT) 27 U/L 05/04/2017 Comp Metabolic Dgj086 BILI T 1.2 mg/dL 05/04/2017 Comp Metabolic Jei371 ALBUMIN 4.0 g/dL 05/04/2017 Comp Metabolic Ybk104 TPRO 6.7 g/dL 05/04/2017 Comp Metabolic Xqb647 GLOB 2.7 g/dL 05/04/2017 Comp Metabolic Nmy538 A/G Ratio 1.5 Ratio 05/04/2017 Comp Metabolic Hft139 Osmo 284 mOsmo 05/04/2017 C A/B FLU 1088388 Influenza A Scr Negative 02/16/2017 C A/B FLU 9653421 Influenza B Scr Positive 02/16/2017 Cbc With [...] 39.7 % 05/23/2016 Cbc With Differential Ord2 [place]% 8.8 % 05/23/2016 Cbc With Differential Ord2 [...] 2.07 K/ul 05/23/2016 Cbc With Differential Ord2 [place] ABS# 0.5 K/ul 05/23/2016 Cbc With Differential Ord2 Eos ABS# 0.1 K/ul 05/23/2016 Cbc With Differential Ord2 Baso ABS# 0.0 K/ul 05/23/2016 Lipid Ord30 CHOL 397 mg/dL 05/17/2016 Lipid Ord30 HDL 48.0 mg/dl 05/17/2016 Lipid Ord30 TRIG 578 mg/dL 05/17/2016 Lipid Ord30 LDL Unable to calculate Due to elevated triglycerides mg/dL 05/17/2016 Lipid Ord30 C/HDL 8.3 Ratio 05/17/2016 %Hba1C Ghb390 % HbA1c 55363-3 12.4 % 05/16/2016 %Hba1C Bgy921 Gluc Ave 309 mg/dL 05/16/2016 Cbc With [...] 87.4 fl 05/15/2016 Cbc With Differential Ord2 [place]% 7.8 % 05/15/2016 Cbc With Differential Ord2 [...] 2.04 K/ul 05/15/2016 Cbc With Differential Ord2 [place] ABS# 0.5 K/ul 05/15/2016 Cbc With Differential Ord2 Eos ABS# 0.1 K/ul 05/15/2016 Cbc With Differential Ord2 Baso ABS# 0.0 K/ul 05/15/2016 Tsh Ord6 hTSH II 1.70 uIU/mL 05/15/2016 Comp Metabolic Ter068 NA 135 mEq/L 05/15/2016 Comp Metabolic Ymh566 K 3.9 mEq/L 05/15/2016 Comp Metabolic Ejq861 CL 96 mEq/L 05/15/2016 Comp Metabolic Qzs989 CO2 27.0 mEq/L 05/15/2016 Comp Metabolic Qnx170 ANION GAP 16 05/15/2016 Comp Metabolic Uje796 GLUCOSE 183 mg/dL 05/15/2016 Comp Metabolic Xoe906 Creat 1.1 mg/dL 05/15/2016 Comp Metabolic Ngn842 eGFR 71 ml/min/1.73m2 05/15/2016 Comp Metabolic Vnp685 BUN 17 mg/dL 05/15/2016 Comp Metabolic Ctz791 B/C Ratio 14.9 Ratio 05/15/2016 Comp Metabolic Adg716 CALCIUM 9.6 mg/dL 05/15/2016 Comp Metabolic Spw815 ALK PHOS 100 U/L 05/15/2016 Comp Metabolic Jqf802 AST(SGOT) 20 U/L 05/15/2016 Comp Metabolic Wck004 ALT(SGPT) 20 U/L 05/15/2016 Comp Metabolic Ros290 BILI T 1.3 mg/dL 05/15/2016 Comp Metabolic Jev047 ALBUMIN 4.6 g/dL 05/15/2016 Comp Metabolic Uds279 TPRO 8.1 g/dL 05/15/2016 Comp Metabolic Rmi767 GLOB 3.5 g/dL 05/15/2016 Comp Metabolic Itc756 A/G Ratio 1.3 Ratio 05/15/2016 Comp Metabolic Gki167 Osmo 276 mOsmo 05/15/2016 Review of Systems System Result Effective Dates Constitutional recent illness 11/12/2018 Constitutional No anorexia [...] of skin Location: face 05/04/2017 patch left quaker Full Exam - General 1994 Constitutional general [...] walking: ataxic rhythm 01/29/2017 decreased strength RUE/RLE 01/07, LUE /LLE 03/09 Full Exam - General 1994 Neurologic mental [...] CPT-4: J3301 09/30/2018 THER/PROPH/DIAG INJ SC/IM CPT-4: 30624 09/11/2018 TRIAMCINOLONE ACET INJ NOS CPT-4: J3301 09/11/2018 IMMUNIZATION ADMIN CPT -4: 87018 07/22/2018 FLU VAC NO PRSV 4 MENA 3 YRS+ CPT-4: 58704 07/22/2018 TRIAMCINOLONE ACET INJ NOS CPT-4: J3301 06/28/2018 KETOROLAC TROMETHAMINE INJ CPT-4: J1885 05/02/2018 FLU VAC NO PRSV 4 MENA 3 YRS+ CPT-4: 04463 08/16/2017 IMMUNIZATION ADMIN CPT -4: 96385 08/16/2017 URINALYSIS NONAUTO W/O SCOPE CPT-4: 42886 06/21/2017 TRIAMCINOLONE ACET INJ NOS CPT-4: J3301 05/04/2017 THER/PROPH/DIAG INJ SC/IM CPT-4: 87908 05/04/2017 TRIAMCINOLONE ACET INJ NOS CPT-4: J3301 02/16/2017 ROCEPHIN, PER 250 MG CPT-4: J0696 02/16/2017 ROCEPHIN, PER 250 MG CPT-4: J0696 10/06/2016 URINALYSIS NONAUTO W/O SCOPE CPT-4: 45483 07/18/2016 TRIAMCINOLONE ACET INJ NOS CPT-4: J3301 01/20/2016 Vital Signs Date Vital 11/12/2018 Blood Pressure 1: 138/76 Code : 8480-6 BMI: 33.9 Code : 55632-5 Heart Rate 1 : 91 bpm Height: 6'2" SpO2: 99% Weight: 264 lbs 10/30/2018 Blood Pressure 1: 130/72 Code : 8480-6 BMI: 33.3 Code : 02602-3 Heart Rate 1 : 83 bpm Height: 6'2" SpO2: 95% Temperature: 36.5 (C) / 97.7 (F) Weight: 259 lbs 10/24/2018 Blood Pressure 1: 130/70 Code : 8480-6 Heart Rate 1: 95 bpm Height: 6'2" SpO2: 96% 10/23/2018 Blood Pressure 1: 100/70 Code : 8480-6 Blood Pressure 2: 102/70 Code: 8480-6 BMI: 33.3 Code: 92398-4 Heart Rate 1: 106 bpm Height: 6'2" SpO2: 98% Weight: 259 lbs 10/21/2018 Blood Pressure 1: 140/90 Code : 8480-6 BMI: 32.9 Code : 05187-8 Heart Rate 1 : 96 bpm Height: 6'2" SpO2: 92% Weight: 256 lbs 10/17/2018 Blood Pressure 1: 110/68 Code : 8480-6 BMI: 32.9 Code : 98174-4 Heart Rate 1 : 82 bpm Height: 6'2" SpO2: 97% Weight: 256 lbs 10/14/2018 Blood Pressure 1: 124/70 Code : 8480-6 BMI: 33.6 Code : 05409-3 Heart Rate 1 : 76 bpm Height: 6'2" SpO2: 99% Temperature: 36.3 (C) / 97.3 (F) Weight: 262 lbs 09/30/2018 Blood Pressure 1: 138/82 Code : 8480-6 BMI: 33.6 Code : 75491-7 Heart Rate 1 : 82 bpm Height: 6'2" SpO2: 98% Temperature: 36.3 (C) / 97.3 (F) Weight: 262 lbs 09/09/2018 Blood Pressure 1: 140/80 Code : 8480-6 BMI: 33.0 Code : 37992-7 Heart Rate 1 : 97 bpm Height: 6'2" SpO2: 93% Temperature: 36.8 (C) / 98.2 (F) Weight: 257 lbs 07/22/2018 Blood Pressure 1: 120/78 Code : 8480-6 BMI: 31.6 Code : 46339-8 Heart Rate 1 : 87 bpm Height: 6'2" SpO2: 98% Weight: 246 lbs 07/16/2018 Blood Pressure 1: 132/74 Code : 8480-6 BMI: 31.2 Code : 80014-2 Heart Rate 1 : 90 bpm Height: 6'2" SpO2: 96% Weight: 243 lbs 07/01/2018 Blood Pressure 1: 142/82 Code : 8480-6 BMI: 31.8 Code : 52028-1 Heart Rate 1 : 88 bpm Height: 6'2" SpO2: 98% Weight: 248 lbs 06/28/2018 Blood Pressure 1: 132/76 Code : 8480-6 BMI: 31.8 Code : 18959-4 Heart Rate 1 : 107 bpm Height: 6'2" SpO2: 98% Temperature: 37.9 (C) / 100.3 (F) Weight: 248 lbs 06/18/2018 Blood Pressure 1: 138/82 Code : 8480-6 BMI: 31.8 Code : 56361-3 Heart Rate 1 : 82 bpm Height: 6'2" SpO2: 97% Weight: 248 lbs 06/04/2018 Blood Pressure 1: 128/84 Code : 8480-6 BMI: 33.9 Code : 92043-1 Heart Rate 1 : 86 bpm Height: 6'2" SpO2: 95% Weight: 264 lbs 05/13/2018 Blood Pressure 1: 130/80 Code : 8480-6 BMI: 31.1 Code : 69375-8 Heart Rate 1 : 100 bpm Height: 6'2" SpO2: 94% Weight: 242 lbs 05/02/2018 Blood Pressure 1: 134/84 Code : 8480-6 BMI: 31.2 Code : 58699-0 Heart Rate 1 : 93 bpm Height: 6'2" SpO2: 98% Weight: 243 lbs 04/29/2018 Blood Pressure 1: 142/88 Code : 8480-6 BMI: 31.6 Code : 19928-2 Heart Rate 1 : 96 bpm Height: 6'2" SpO2: 96% Temperature: 36.7 (C) / 98.1 (F) Weight: 246 lbs 03/13/2018 Blood Pressure 1: 120/76 Code : 8480-6 BMI: 30.9 Code : 17551-0 Heart Rate 1 : 112 bpm Height: 6'2" SpO2: 97% Weight: 241 lbs 03/07/2018 Blood Pressure 1: 108/78 Code : 8480-6 BMI: 30.0 Code : 06002-9 Heart Rate 1 : 87 bpm Height: 6'2" SpO2: 98% Weight: 234 lbs 02/28/2018 Blood Pressure 1: 106/74 Code : 8480-6 BMI: 30.0 Code : 73845-3 Heart Rate 1 : 101 bpm Height: 6'2" SpO2: 98% Temperature: 36.4 (C) / 97.5 (F) Weight: 234 lbs 02/13/2018 Blood Pressure 1: 110/78 Code : 8480-6 BMI: 30.0 Code : 44398-6 Heart Rate 1 : 106 bpm Height: 6'2" SpO2: 98% Weight: 234 lbs 01/29/2018 Blood Pressure 1: 106/68 Code : 8480-6 BMI: 30.0 Code : 96183-7 Heart Rate 1 : 108 bpm Height: 6'2" SpO2: 98% Weight: 234 lbs 08/27/2017 Blood Pressure 1: 134/76 Code : 8480-6 Heart Rate 1: 98 bpm Height: SpO2: 97% Weight: 08/16/2017 Blood Pressure 1: 128/80 Code : 8480-6 BMI: 32.0 Code : 16225-4 Heart Rate 1 : 94 bpm Height: [...] Code : 8480-6 BMI: 31.8 Code : 83215-7 Heart Rate 1 : 102 bpm Height: [...] Code : 8480-6 BMI: 31.8 Code : 72849-9 Heart Rate 1 : 85 bpm Height: 6'2" SpO2: 96% Temperature: 36.6 (C) / 97.9 (F) Weight: 248 lbs 02/12/2017 Blood Pressure 1: 126/76 Code : 8480-6 BMI: 31.8 Code : 72983-5 Heart Rate 1 : 106 bpm Height: 6'2" SpO2: 91% Weight: 248 lbs 02/05/2017 Blood Pressure 1: 146/86 Code : 8480-6 BMI: 31.9 Code : 17335-0 Heart Rate 1 : 98 bpm Height: 6'2" SpO2: 87% Temperature: 36.7 (C) / 98.0 (F) Weight: 248 lbs 8 oz 01/29/2017 Blood Pressure 1: 132/84 Code : 8480-6 BMI: 31.8 Code : 70446-1 Heart Rate 1 : 83 bpm Height: 6'2" SpO2: 97% Weight: 248 lbs 10/13/2016 Blood Pressure 1: 128/72 Code : 8480-6 Heart Rate 1: 86 bpm SpO2: 94% 10/09/2016 Blood Pressure 1: 128/68 Code : 8480-6 Heart Rate 1: 136 bpm SpO2: 94% Temperature: 36.8 (C) / 98.2 (F) 10/06/2016 Blood Pressure 1: 140/80 Code : 8480-6 BMI: 32.1 Code : 77741-5 Heart Rate 1 : 94 bpm Height: 6'2" SpO2: 95% Weight: 250 lbs 07/18/2016 Blood Pressure 1: 128/86 Code : 8480-6 BMI: 32.1 Code : 95122-2 Heart Rate 1 : 89 bpm Height: 6'2" SpO2: 96% Weight: 250 lbs 06/22/2016 Blood Pressure 1: 118/70 Code : 8480-6 BMI: 32.1 Code : 30503-4 Heart Rate 1 : 70 bpm Height: 6'2" SpO2: 97% Weight: 250 lbs 05/23/2016 Blood Pressure 1: 128/80 Code : 8480-6 BMI: 32.1 Code : 77337-1 Heart Rate 1 : 76 bpm Height: 6'2" SpO2: 98% Weight: 250 lbs 05/15/2016 Blood Pressure 1: 110/90 Code : 8480-6 BMI: 31.3 Code : 55012-4 Heart Rate 1 : 111 bpm Height: 6'2" SpO2: 97% Temperature: 36.6 (C) / 97.8 (F) Weight: 244 lbs 01/20/2016 Blood Pressure 1: 128/76 Code : 8480-6 BMI: 33.0 Code : 32172-8 Heart Rate 1 : 103 bpm Height: 6'2" SpO2: 95% Weight: 257 lbs Functional Status No Functional Status data History of Present Illness Symptom Name Status Result Effective Date Notes Quality productive None Onset and Resolution ongoing [...] data Encounters Encounter Performer Location Codes Date ([id number] EST. PATIENT, LEVEL III Diagnosis: Cough[ICD10: R05] Diagnosis: Pneumonia due to other Gram-negative bacteria[ICD10: J15.6] Marcela Ha MD, [facility] CPT-4: 82987 11/12/2018 ([id number]) 64420 EST. PATIENT, LEVEL III Diagnosis: Pneumonia due to other Gram-negative bacteria[ICD10: J15.6] Diagnosis: Cough[ICD10: R05] Melida Ha MD, [facility] CPT-4: 38422 10/30/2018 ([id number]) 20014 EST. PATIENT, LEVEL II Diagnosis: Pain in joints of right hand[ICD10: M25.541] Diagnosis: Trigger finger, right middle finger[ICD10: M65.331] Marcela Ha MD, [facility] CPT-4: 52132 10/24/2018 ([id number]) 86105 EST. PATIENT, LEVEL IV Diagnosis: Essential (primary) hypertension[ICD10: I10] Diagnosis: Type 2 diabetes mellitus with foot ulcer[ICD10: E11.621] Melida Ha MD, [facility] CPT-4: 02936 10/23/2018 ([id number]) 50384 EST. PATIENT, LEVEL III Diagnosis: Cellulitis of right finger[ICD10: L03.011] Diagnosis: Type 2 diabetes mellitus with foot ulcer[ICD10: E11.621] Diagnosis: Pain in right hand[ICD10: M79.641] Melida Ha MD, [facility] CPT-4: 65844 10/21/2018 05819 EST. PATIENT, LEVEL III Diagnosis: Spontaneous ecchymoses[ICD10: R23.3] Diagnosis: Cellulitis of right lower limb[ICD10: L03.115] Diagnosis: Cellulitis of left lower limb[ICD10: L03.116] Madeline Ha MD, [facility] CPT-4: 50584 10/17/2018 ([id number]) 44275 EST. PATIENT, LEVEL III Diagnosis: Cough[ICD10: R05] Diagnosis: Acute bronchitis, unspecified[ICD10: J20.9] Melida Ha MD, [facility] CPT-4: 27653 10/14/2018 10301 EST. PATIENT, LEVEL III Diagnosis: Acute laryngopharyngitis[ICD10: J06.0] Diagnosis: Cough[ICD10: R05] Madeline Ha MD, [facility] CPT-4: 31529 09/30/2018 ([id number]) 54214 EST. PATIENT, LEVEL III Diagnosis: Acute recurrent maxillary sinusitis[ICD10: J01.01] Diagnosis: Cough[ICD10: R05] Diagnosis: Type 2 diabetes mellitus with hyperglycemia[ICD10: E11.65] Marcela Ha MD, [facility] CPT-4: 17073 09/09/2018 ([id number]) 37092 EST. PATIENT, LEVEL IV Diagnosis: Essential (primary) hypertension[ICD10: I10] Diagnosis: Mixed hyperlipidemia[ICD10: E78.2] Diagnosis: Bipolar disorder, current episode depressed, moderate[ICD10: F31.32] Diagnosis: Type 2 diabetes mellitus with other specified complication[ICD10: E11.69] Melida Ha MD, [facility] CPT-4: 20982 2017 ([id number]) 00117 EST. PATIENT, LEVEL III Diagnosis: Insomnia due to medical condition[ICD10: G47.01] Marcela Ha MD, [facility] CPT-4: 52083 07/16/2018 ([id number]) Miscellaneous no charge Diagnosis: Cough[ICD10: R05] Madeline Ha MD, [facility] CPT-4: 81163 07/01/2018 25441 EST. PATIENT, LEVEL III Diagnosis: Cough[ICD10: R05] Diagnosis: Acute laryngopharyngitis[ICD10: J06.0] Diagnosis: Other allergic rhinitis[ICD10: J30.89] Madeline Ha MD, [facility] CPT-4: 96920 06/28/2018 ([id number]) 47587 EST. PATIENT, LEVEL IV Diagnosis: Type 2 diabetes mellitus with hyperglycemia[ICD10: E11.65] Diagnosis: Essential (primary) hypertension[ICD10: I10] Melida Ha MD, [facility] CPT-4: 47517 06/18/2018 ([id number]) 75876 EST. PATIENT, LEVEL IV Diagnosis: Type 2 diabetes mellitus with hyperglycemia[ICD10: E11.65] Diagnosis: Essential (primary) hypertension[ICD10: I10] Diagnosis: Localized edema[ICD10: R60.0] Melida Ha MD, [facility] CPT- 4: 52557 06/04/2018 ([id number]) 46421 EST. PATIENT, LEVEL III Diagnosis: Type 2 diabetes mellitus with hyperglycemia[ICD10: E11.65] Diagnosis: Myalgia[ICD10: M79.1] Diagnosis: Pain in right hip[ICD10: M25.551] Diagnosis: Pain in left hip[ICD10: M25.552] Marcela Ha MD, [facility] CPT-4: 60835 05/13/2018 ([id number]) 16569 EST. PATIENT, LEVEL III Diagnosis: Myalgia[ICD10: M79.1] Diagnosis: Pain in right hip[ICD10: M25.551] Diagnosis: Pain in left hip[ICD10: M25.552] Marcela Ha MD, [facility] CPT-4: 05781 05/02/2018 ([id number]) 04409 EST. PATIENT, LEVEL IV Diagnosis: Essential (primary) hypertension[ICD10: I10] Diagnosis: Type 2 diabetes mellitus with hyperglycemia[ICD10: E11.65] Diagnosis: Major depressive disorder, single episode, moderate[ICD10: F32.1] Diagnosis: Myalgia[ICD10: M79.1] Marcela Ha MD, [facility] CPT-4: 26136 04/29/2018 ([id number]) 88736 EST. PATIENT, LEVEL IV Diagnosis: Type 2 diabetes mellitus with hyperglycemia[ICD10: E11.65] Diagnosis: Essential (primary) hypertension[ICD10: I10] Diagnosis: Major depressive disorder, single episode, moderate[ICD10: F32.1] Melida Ha MD, [facility] CPT-4: 02293 03/13/2018 ([id number]) 68028 EST. PATIENT, LEVEL III Diagnosis: Type 2 diabetes mellitus with hyperglycemia[ICD10: E11.65] Diagnosis: Bipolar disorder, current episode depressed, moderate[ICD10: F31.32] Diagnosis: Orthostatic hypotension[ICD10: I95.1] Marcela Ha MD, [facility] CPT-4: 89374 03/07/2018 ([id number]) 29596 EST. PATIENT, LEVEL IV Diagnosis: Type 2 diabetes mellitus with hyperglycemia[ICD10: E11.65] Diagnosis: Major depressive disorder, single episode, moderate[ICD10: F32.1] Diagnosis: Orthostatic hypotension[ICD10: I95.1] Diagnosis: Other fatigue[ICD10: R53.83] Marcela Ha MD, [facility] CPT-4: 07427 02/28/2018 33581 EST. PATIENT, LEVEL IV Diagnosis: Other fatigue[ICD10: R53.83] Diagnosis: Other malaise[ICD10: R53.81] Diagnosis: Gastro-esophageal reflux disease without esophagitis[ICD10: K21.9] Madeline Ha MD, [facility] CPT-4: 63988 02/13/2018 ([id number]) 22139 EST. PATIENT, LEVEL IV Diagnosis: Type 2 diabetes mellitus with foot ulcer[ICD10: E11.621] Diagnosis: Essential (primary) hypertension[ICD10: I10] Diagnosis: Gastro-esophageal reflux disease without esophagitis[ICD10: K21.9] Marcela Ha MD, [facility] CPT-4: 33517 01/29/2018 04237 EST. PATIENT, LEVEL III Diagnosis: Other malaise[ICD10: R53.81] Diagnosis: Other fatigue[ICD10: R53.83] Diagnosis: Pain in right shoulder[ICD10: M25.511] Diagnosis: Pain in left shoulder[ICD10: M25.512] Madeline Ha MD, [facility] CPT-4: 77494 08/27/2017 ([id number]) 75924 EST. PATIENT, LEVEL IV Diagnosis: Essential (primary) hypertension[ICD10: I10] Diagnosis: Type 2 diabetes mellitus with hyperglycemia[ICD10: E11.65] Diagnosis: VACCIN FOR INFLUENZA[ICD10: Z23] Melida Ha MD, [facility] CPT-4: 99911 08/16/2017 96928 EST. PATIENT, LEVEL III Diagnosis: Zoster without complications[ICD10: B02.9] Madeline Ha MD, [facility] CPT-4: 89572 07/26/2017 ([id number]) 54313 EST. PATIENT, LEVEL III Diagnosis: Cellulitis of right lower limb[ICD10: L03.115] Marcela Ha MD [facility] CPT-4: 15245 07/03/2017 07127 EST. PATIENT, LEVEL II Diagnosis: Laceration without foreign body of left forearm, initial encounter[ ICD10: S51.812A] Marcela Ha MD [facility] CPT-4: 84796 06/29/2017 ([id number]) 80648 EST. PATIENT, LEVEL III Diagnosis: Cellulitis of right lower limb[ICD10: L03.115] Diagnosis: Type 2 diabetes mellitus with foot ulcer[ICD10: E11.621] Marcela Ha MD , [facility] CPT-4: 80368 06/18/2017 ([id number]) 61825 EST. PATIENT, LEVEL IV Diagnosis: Cellulitis of right lower limb[ICD10: L03.115] Diagnosis: Acute laryngopharyngitis[ICD10: J06.0] Diagnosis: Gastro-esophageal reflux disease without esophagitis[ICD10: K21.9] Marcela Ha MD [facility] CPT-4: 26294 06/07/2017 ([id number]) 44332 EST. PATIENT, LEVEL III Diagnosis: Type 2 diabetes mellitus with hyperglycemia[ICD10: E11.65] Diagnosis: Insect bite (nonvenomous) of abdominal wall, initial encounter[ICD10 : S30.861A] Marcela Ha MD, [facility] CPT-4: 24122 05/17/2017 ([id number]) 77097 EST. PATIENT, LEVEL III Diagnosis: Allergic contact dermatitis due to plants, except food[ICD10: L23.7] Melida Ha MD, [facility] CPT-4: 02857 05/04/2017 ([id number]) 59557 EST. PATIENT, LEVEL III Diagnosis: Essential (primary) hypertension[ICD10: I10] Marcela Ha MD, [facility] CPT-4: 97735 03/15/2017 ([id number]) 62991 EST. PATIENT, LEVEL III Diagnosis: Cough[ICD10: R05] Diagnosis: Essential (primary) hypertension[ICD10: I10] Marcela Ha MD, [facility] CPT-4: 92114 03/01/2017 ([id number]) 04336 EST. PATIENT, LEVEL III Diagnosis: Cough[ICD10: R05] Diagnosis: Nasal congestion[ICD10: R09.81] Diagnosis: Acute recurrent maxillary sinusitis[ICD10: J01.01] Marcela Ha MD [facility] CPT-4: 62502 02/16/2017 ([id number]) 33967 EST. PATIENT, LEVEL III Diagnosis: Type 2 diabetes mellitus with hyperglycemia[ICD10: E11.65] Marcela Ha MD [facility] CPT-4: 39235 02/12/2017 ([id number]) 02807 EST. PATIENT, LEVEL IV Diagnosis: Type 2 diabetes mellitus with hyperglycemia[ICD10: E11.65] Diagnosis: Muscle weakness (generalized)[ICD10: M62.81] Diagnosis: Disorientation, unspecified[ICD10: R41.0] Marcela Ha MD, [facility] CPT-4: 93954 02/05/2017 ([id number]) Patient admitted to the hospital from clinic (NO CHARGE) Diagnosis: Type 2 diabetes mellitus with hyperglycemia[ICD10: E11.65] Diagnosis: Disorientation, unspecified[ICD10: R41.0] Diagnosis: Muscle weakness (generalized)[ICD10: M62.81] [facility] CPT-4: 06632M 01/29/2017 ([id number]) Miscellaneous no charge Diagnosis: Cellulitis of right lower limb[ICD10: L03.115] [facility] CPT-4: 89259 10/13/2016 ([id number]) Miscellaneous no charge Diagnosis: Type 2 diabetes mellitus with foot ulcer[ICD10: E11.621] Diagnosis: Pain in right foot[ICD10: M79.671] Marcela Ha MD, [facility] CPT-4: 03637 10/09/2016 93260 EST. PATIENT, LEVEL II Diagnosis: Cellulitis of right lower limb[ICD10: L03.115] Marcela Ha MD, [facility] CPT-4: 82723 10/06/2016 ([id number]) 32211 EST. PATIENT, LEVEL IV Diagnosis: Low back pain[ICD10: M54.5] Diagnosis: Other deformities of toe(s) (acquired), left foot[ICD10: M20.5X2] Diagnosis: Type 2 diabetes mellitus with foot ulcer[ICD10: E11.621] Marcela Ha MD , [facility] CPT-4: 64655 07/18/2016 ([id number]) 45469 EST. PATIENT, LEVEL III Diagnosis: Type 2 diabetes mellitus with hyperglycemia[ICD10: E11.65] Marcela Ha MD, [facility] CPT-4: 55117 06/22/2016 ([id number]) 99812 EST. PATIENT, LEVEL IV Diagnosis: Type 2 diabetes mellitus with hyperglycemia[ICD10: E11.65] Diagnosis: Mixed hyperlipidemia[ICD10: E78.2] Diagnosis: Other hemoglobinopathies[ICD10: D58.2] Marcela Ha MD, [facility] CPT-4: 98557 05/23/2016 ([id number]) 01918 EST. PATIENT, LEVEL IV Diagnosis: Type 2 diabetes mellitus with other specified complication[ICD10: E11.69] Diagnosis: Dehydration[ICD10: E86.0] Marcela Ha MD, [facility] CPT-4: 31870 05/15/2016 ([id number]) OFFICE VISIT, NEW - LEVEL 3 Diagnosis: Allergic contact dermatitis due to plants, except food[ICD10: L23.7] Madeline Ha MD, [facility] CPT-4: 67713 01/20/2016 Plan of Care Planned Activity Notes Codes Status Date Visit Plan: Cough-pneumonia- patient continues to have [...] of plan. 11/12/2018 Appointment: Marcela Oshea WPtel: [facility]5 [phone] (30 min) Complex 11/12/2018 Patient Education: Patient Medication Summary Completed 11/12/2018 Patient Education: Symbicort - 18-64 - eCopay Completed 11/12/2018 Care Plan: Referral Order SNOMED-CT : [id number] Pending 11/12/2018 Care Plan: Culture Sputum Pending 11/12/2018 Referral: Niko Mantilla Referral Completed 11/04/2018 Visit Plan: Pneumonia, cough - recent diagnosis of Moraxella Cattharalis - with sensitivity to levaquin - will give 2 wks of levaquin since he had improvement but no full resolution of symptoms. 10/30/2018 Appointment: Melida Ha WPtel: [address] [place], [place] [phone] 30 min appointments only in this slot 10/30/2018 Patient Education: Patient Medication Summary Completed 10/30/2018 Visit Plan: Right hand-joint pain and swelling -negative for gout -treated for cellulitis right 2nd mcp joint -now having difficulty with long finger "locking" -Dr Ha in to evaluate patient and tape index and long finger in place-refer to Dr Mantilla for evaluation 10/24/2018 Appointment: Marcela Oshea WPtel: [address] [place], [place] [phone] (30 min) Complex 10/24/2018 Patient Education: Patient Medication Summary Completed 10/24/2018 Care Plan: Referral Order SNOMED-CT : [id number] Pending 10/24/2018 Visit Plan: Hypotension - discussed with Dr. Khalid - he is in agreement to decrease [...] less controlled. 10/23/2018 Appointment: Melida Ha WPtel: [address] [place], [place] [phone] (15 min) Moderate 10/23/2018 Patient Education: Patient [...] and plan. 10/21/2018 Appointment: Marcela Oshea WPtel: [phone] [phone] (30 min) Complex 10/21/2018 Patient Education: [...] warmth, discharge. 10/17/2018 Appointment: Madeline Kennedy WPtel: [facility] (15 min) Moderate 10/17/2018 Patient Education: [...] acutely worsen. 10/14/2018 Appointment: Marcela Oshea WPtel: [facility]3 [phone] (15 min) Moderate 10/14/2018 Patient Education: Patient Medication Summary Completed 10/14/2018 Care Plan: CHEST X-RAY 2VW FRONTAL&LATL LOINC : 16569-5 Pending 10/14/2018 Visit Plan: URI - Pt [...] allergy spray. 09/30/2018 Appointment: Madeline Kennedy WPtel: [address] [place], [place] [phone] (15 min) Moderate 09/30/2018 Patient Education: Patient [...] Hgb A1C 09/09/2018 Appointment: Marcela Oshea WPtel: [address] [place], [place] [phone] (15 min) Moderate 09/09/2018 Patient Education: Patient Medication Summary Completed 09/09/2018 Patient Education: Patient Medication Summary Completed 09/06/2018 Patient Education: Cholesterol Management Completed 09/06/2018 Care Plan: Comp Metabolic Pending 09/06/2018 Care Plan: Cbc With Differential Pending 09/06/2018 Care Plan: %Hba1C LOINC : 14246-4 Pending 09/06/2018 Care Plan: Tsh Pending 09/06/2018 Care Plan: Lipid Pending 09/06/2018 Appointment: Marcela Oshea WPtel: [address] [place], [place] [phone] (15 min) Moderate 08/26/2018 Appointment: Marcela Oshea WPtel: [address] [place], [place] [phone] (15 min) Moderate 08/23/2018 Visit Plan: Hypertension [...] in clinic. 07/22/2018 Appointment: Melida Ha WPtel: [facility]5 [facility] (15 min) Moderate 07/22/2018 Patient Education: Patient [...] Oshea WPtel: [facility]5 [phone] (30 min) Complex 07/16/2018 Patient Education: Patient Medication Summary Completed 07/16/2018 Visit Plan: cough - improved - notify clinic if symptoms do not completely resolve, or with any questions or concerns. 07/01/2018 Appointment: [phone] (15 min) Moderate 07/01/2018 Patient Education: Patient [...] allergy spray. 06/28/2018 Appointment: Madeline Kennedy WPtel: [address] [place], [place] [phone] (15 min) Moderate 06/28/2018 Patient Education: Patient [...] at home. 06/18/2018 Appointment: Melida Ha WPtel[facility] [place] (15 min) Moderate 06/18/2018 Patient Education: [...] [phone] [facility] (15 min) Moderate 06/04/2018 Patient Education: [...] allow for greater blood glucose control. Joint dqaf-ffjlghey-lmgnims- symptoms have improved -stop meloxicam due to upset stomach-call if symptoms return 05/13/2018 Appointment: Marcela Oshea WPtel: [phone] [phone] [place] (30 min) Complex 05/13/2018 Patient Education: Patient Medication Summary Completed 05/13/2018 Visit Plan: Bilateral hip mhgj-nvxxjsyy-tyxhfdm IM injection administered today for c/o continued myalgia/arthralgia. Patient to start taking Meloxicam 15mg PO daily. Advised to return to clinic if symptoms do not improve. 05/02/2018 Appointment: Marcela Oshea WPtel: [phone] [phone] (30 min) Complex 05/02/2018 Patient Education: [...] readings at home. Diabetes Mellitus -check labs Zqoujyxf-bexdlrc-itxe bite-rx for doxycycline-follow up in 2 weeks 04/29/2018 Appointment: Marcela Oshea WPtel: [address] [phone] [place] (15 min) Moderate 04/29/2018 Patient Education: Patient Medication Summary Completed 04/29/2018 Appointment: Melida Ha WPtel: [address] [facility] (15 min) Moderate 04/15/2018 Appointment: Marcela Oshea WPtel: [phone] [phone] (30 min) Complex 03/21/2018 Visit Plan: [...] [facility] (30 min) Complex 03/13/2018 Patient Education: Patient Medication Summary Completed 03/13/2018 Visit Plan: DM-continue same medications-monitor blood sugars routinely as directed -rx for new glucometer and test strips provided Bipolar-currently depressed-patient start on vraylar-follow up in 2 weeks, sooner if needed. Patient and verbalied understanding of plan. Hypotension- stay off losartan 03/07/2018 Appointment: Marcela [phone] [phone] [place] (30 min) Complex 03/07/2018 Patient [...] patient. 02/28/2018 Appointment: Marcel[phone] (30 min) Complex 02/28/2018 Patient Education: Patient [...] not improving. 02/13/2018 Appointment: Madeline Kennedy WPtel: [facility] (15 min) Moderate 02/13/2018 Patient Education: Patient Medication Summary Completed 02/13/2018 Referral: Sun Glynn Patient informed. Referral info faxed. Completed Visit Plan: DM-weight loss-not checking blood sugars- patient sent for labs today HTN-low yaowu-ubxfesy-ncfsq labs Callus of foot and fissue of heel-refer to Dr Glynn for evaluation Esophageal Reflux - the patient has been counseled against excessive intake of caffeine, spicy foods, peppermint , and cinnamon - all of which can exacerbate esophageal reflux. The patient is to take medications as prescribed and call the office if the symptoms are not improving. 01/29/2018 Appointment: Marcela Oshea WPtel: [phone] (30 min) Complex 01/29/2018 Patient Education: Patient Medication Summary Completed 01/29/2018 Care Plan: Comp Metabolic Cancelled 01/29/2018 Care Plan: Cbc With Differential Cancelled 01/29/2018 Care Plan: %Hba1C LOINC : 76293-1 Cancelled 01/29/2018 Care Plan: Referral Order SNOMED-CT : [id number] Cancelled 01/29/2018 Visit Plan: Fatigue, malaise, joint [...] concerns. 08/27/2017 Appointment: Madeline Kennedy WPtel: [phone] [phone] (15 min) Moderate 08/27/2017 Patient Education: [...] - 08/16/2017 Appointment: Melida Ha WPtel: [phone] [phone] (30 min) Complex 08/16/2017 Patient Education: Patient Medication Summary Completed 08/16/2017 Patient Education: Obesity Completed 08/16/2017 Appointment: Madeline Kennedy WPtel: [phone] [facility] (30 min) Complex 08/07/2017 Visit Plan: [...] contagious. 07/26/2017 Appointment: Madeline Kennedy WPtel: [phone] [facility] (15 min) Moderate 07/26/2017 Patient Education: Patient Medication Summary Completed 07/26/2017 Visit Plan: Cellulitis right foot-cultured today in the office-home health to reapply wound vac--appt with wound care on to evaluate for debridement- 07/03/2017 Appointment: Marcela Oshea WPtel: [facility] [address] (30 min) Complex 07/03/2017 Patient Education: Patient Medication Summary Completed 07/03/2017 Visit Plan: Abrasion left arm - Pt was instructed to keep the wound clean, wash with antibacterial soap, use triple antibiotic ointment, call if redness, pustular drainage, or any other acute concerns. 06/29/2017 Appointment: Marcela Oshea WPtel: [address] [place] [address] (15 min) Moderate 06/29/2017 Patient Education: Patient [...] of plan. 06/18/2017 Appointment: Marcela Oshea WPtel: [address] [place] [address] (15 min) Moderate 06/18/2017 Patient Education: Patient [...] Oshea WPtel: [phone] (10 min) Simple 06/07/2017 Patient Education: Patient [...] Oshea WPtel: [facility]5 [phone] (30 min) Complex 05/17/2017 Patient Education: [...] if you want blue minesh called into [facility]. 05/04/2017 Appointment: Marcela Oshea WPtel: [phone] [phone] (30 min) Complex 05/04/2017 Patient Education: Patient [...] Oshea WPtel: [facility]8 [phone] (15 min) Moderate 03/15/2017 Patient Education: Patient Medication Summary Completed 03/15/2017 Appointment: Marcela Oshea WPtel: [facility]7 [phone] (30 min) Complex 03/12/2017 Visit Plan: [...] as discussed 02/16/2017 Appointment: Marcela Oshea WPtel: [address] [place], [place] [phone] (15 min) Moderate 02/16/2017 Patient Education: Patient [...] less controlled. 02/12/2017 Appointment: Marcela Oshea WPtel: [facility]2 [phone] (30 min) Complex 02/12/2017 Patient Education: Patient Medication Summary Completed 02/12/2017 Appointment: Marcela Oshea WPtel: [facility]3 [phone] (30 min) Complex 02/06/2017 Visit Plan: [...] will consider 02/05/2017 Appointment: Marcela Oshea WPtel: [phone] [phone] [place] (30 min) Complex 02/05/2017 Patient Education: Patient Medication Summary Completed 02/05/2017 Appointment: Marcela Oshea WPtel: [phone] [phone] [place] (30 min) Complex 01/30/2017 Visit Plan: Acute confusion-uncontrolled diabetes- chronically noncompliant with treatment and stopped his insulin several months ago-r/o stroke vs DKA-Dr Ha in to evaluate patient-plan to admit for further work up and treatment-patient's called and she transported him to the hospital 01/29/2017 Appointment: Marcela Oshea WPtel: [phone] [phone] [place] (30 min) Complex 01/29/2017 Patient Education: Patient Medication Summary Completed 01/29/2017 Patient Education: Obesity Completed 01/29/2017 Visit Plan: Right foot pain-MRI shows foreign body-appt with Dr Grewal for evaluation on Sunday. 10/13/2016 Appointment: Marcela Oshea WPtel: [phone] [phone] [place] (15 min) Moderate 10/13/2016 Patient Education: Patient Medication Summary Completed 10/13/2016 Appointment: Macrela Oshea WPtel: [phone] [phone] [place] (30 min) Complex 10/12/2016 Visit Plan: Right foot vnbt-kealdksu-hvopx washer dropped on foot-xray negative but pain continues to increase-recommend MRI of foot for further evaluation-refer to wound care for lesions on right foot, patient has diabetes and history of osteomyelitis-culture obtained today-continue oral abx- follow up in the office on , sooner if needed 10/09/2016 Visit Plan: Right foot rzfi-kbylexri-wnkbt washer dropped on foot-xray negative but pain continues to increase-recommend MRI of foot for further evaluation-refer to wound care for lesions on right foot, patient has diabetes and history of osteomyelitis-culture obtained today-continue oral abx- follow up in the office on , sooner if needed 10/09/2016 Visit Plan: Right foot psxa-ysuzcugp-qvsuq washer dropped on foot-xray negative but pain continues to increase-recommend MRI of foot for further evaluation-refer to wound care for lesions on right foot, patient has diabetes and history of osteomyelitis-culture obtained today-continue oral abx- follow up in the office on , sooner if needed 10/09/2016 Appointment: Marcela Oshea WPtel: [address] [place], [place] [phone] [place] [address] (30 min) Complex 10/09/2016 Patient Education: Patient Medication Summary Completed 10/09/2016 Visit Plan: Cellulitis - continue with oral antibiotics as previously directed, return to clinic as previously directed, call for acute change in symptoms, worsening redness, warmth, discharge. 10/06/2016 Appointment: Marcela Oshea WPtel: [address] [place], [place] [phone] [place] [address] (10 min) Simple 10/06/2016 Patient Education: Patient Medication Summary Completed 10/06/2016 Appointment: Marcela Oshea WPtel: [address] [place], [place] [phone] [address] (30 min) Complex 08/24/2016 Referral: Sun Glynn Referral Completed 07/21/2016 Visit Plan: Low back pain- history of spinal fusion- patient for xray lumbar spine-RX sent to [facility] pharmacy and instructed on use-topical voltaren samples provided and instructed on use. Ok to use tylenol as needed as well. The patient is to call the office if the pain is worsening or does not improve. Pressure ulcer left 4th toe-refer to Dr Glynn for evaluation 07/18/2016 Appointment: Marcela Oshea WPtel: [phone] [phone] (30 min) Complex 07/18/2016 Patient Education: Patient Medication Summary Completed 07/18/2016 Patient Education: Obesity Completed 07/18/2016 Care Plan: Referral Order SNOMED-CT : [id number] Cancelled 07/18/2016 Visit Plan: Diabetes Mellitus - [...] control. 06/22/2016 Appointment: Marcela Oshea WPtel: [phone] [phone] (30 min) Complex 06/22/2016 Patient Education: [...] today 05/23/2016 Appointment: Marcela Oshea WPtel: [phone] [phone] (30 min) Complex 05/23/2016 Patient Education: [...] plan. 05/15/2016 Appointment: [phone] (15 min) Moderate 05/15/2016 Patient Education: Patient [...] if you want anai edge called into [facility]. 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 Low back pain- history of spinal fusion-patient for xray lumbar spine-RX sent to [facility] pharmacy and instructed on use-topical voltaren [...] drainage, or any other acute concerns. . Pneumonia, cough - recent diagnosis [...] for fracture from injury . Right foot nlse-xzixkpqw-mimxj washer dropped on foot-xray negative but pain [...] for fracture from injury . Right foot keqf-ypdjniol-ojzgs washer dropped on foot-xray negative but pain [...] for fracture from injury . Right foot ojzo-zcuubxnu-cdlsz washer dropped on foot-xray negative but pain continues to increase-recommend MRI of foot for further evaluation-refer to wound care for lesions on right foot, patient has diabetes and history of osteomyelitis-culture obtained today-continue oral abx-follow up in the office on , sooner if needed . Bilateral hip elqo-fdiwqwra-ffybnio IM injection administered today for c/o continued myalgia/arthralgia. Patient to start taking Meloxicam 15mg PO daily. Advised to return to clinic if symptoms do not improve. . DM-weight loss-not checking blood sugars-patient sent for labs today HTN-low ycnfe-pdjplcr-fieoj labs Callus of foot and fissue of [...] readings are starting to become less controlled. Iwcstgzqx-rxyhugpn-uzvpwfnz to monitor Generalized weakness-refer for PT-patient refuses [...] allow for greater blood glucose control. Joint oslm-iguecgpz-gcbjgmk-symptoms have improved -stop meloxicam due to upset [...] readings at home. Diabetes Mellitus -check labs Mrprwylt-cbzgvis-clbk bite-rx for doxycycline-follow up in 2 weeks [...]
--- OUTSIDE RECORDS SUMMARY | 2019-01-01 14:29 | XMS REPORT | CCD ---
Author Author Madeline Kennedy MD, [facility] Address [address] [place] [address] Phone Care Team Providers Care District Ranger Name Role Phone PP Unavailable CCM Unavailable Summary Purpose Interface Exchange Insurance Providers Payer name Policy type / Coverage type Covered libertarian ID Effective Begin Date Effective End Date Blue Cross Blue Shield [facility] Blue Cross/Blue Shield [id number] Unknown Family history Father Diagnosis Age At Onset Hyperlipidemia Unknown Heart Attack Unknown Mother Diagnosis Age At Onset Hypertension Unknown Social History Social History Element Codes Description Effective Dates Marital status Unknown [place] 01/20/2016 Number of children Unknown 4 01/20/2016 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/[address]: 257978417 Never smoker 01/20/[address]: 919245358 Never drinks alcohol 01/20/2016 Allergies, Adverse Reactions, [...] Instructions Cymbalta 30 mg capsule,delayed release RxNorm: 577069 1 Capsule(s) PO QAM 11/13/2018 06/10/2019 Active Symbicort 160 mcg-4.5 mcg/actuation HFA aerosol inhaler RxNorm: 2171339 2 Puff(s) INH BID 11/12/2018 12/11/2018 Active albuterol sulfate 2.5 mg/3 mL (0.083 %) solution for nebulization RxNorm: 050362 3 Milliliter(s) INH UD 11/07/2018 No Stop Date Active azithromycin 500 mg tablet RxNorm: 607616 500mg on day 1 then 250 mg daily x 4 more day Tablet(s) PO 11/07/20182018 Inactive 500mg on day 1 and then 250mg daily 2-4 cefdinir 300 mg capsule RxNorm: 346689 1 Capsule(s) PO BID 01/201911/13/2018 Inactive azithromycin 500 mg tablet RxNorm: 091219 500mg on day 1 then 250 mg daily x 4 more day Tablet(s) PO 11/07/20182018 Inactive 500mg on day 1 and then 250mg daily 2-4 cefdinir 300 mg capsule RxNorm: 502964 1 Capsule(s) PO BID 01/201911/06/2018 Inactive Levaquin 500 mg tablet RxNorm: 508118 1 Tablet(s) PO daily TAKE ONE TABLET BY MOUTH DAILY UNTIL GONE 10/31/20182018 Inactive Levaquin 500 mg tablet RxNorm: 139982 1 Tablet(s) PO daily 11/12/2018 Inactive valsartan 80 mg tablet RxNorm: 395600 1/2 Tablet(s) PO daily 04/20/2019 Active doxycycline hyclate 100 mg tablet RxNorm: 1128247 1 Tablet(s) PO BID 10/21/2018 10/27/2018 Inactive ketorolac 60 mg/2 mL intramuscular solution RxNorm: 7235917 Milliliter(s) IM 10/21/2018 10/21/2018 Inactive Levaquin 500 mg tablet RxNorm: 805407 1 Tablet(s) PO daily 10/31/2018 Inactive Tessalon Perles 100 mg capsule RxNorm: 370829 1-2 Capsule(s) PO TID PRN 10/14/2018 No Stop Date Active albuterol sulfate 2.5 mg/3 mL (0.083 %) solution for nebulization RxNorm: 157139 3 Milliliter(s) INH UD 10/14/201812/2018 Inactive Levaquin 500 mg tablet RxNorm: 079345 1 Tablet(s) PO daily 08/201810/16/2018 Inactive Coreg 6.25 mg tablet RxNorm: 633778 TAKE ONE TABLET BY MOUTH TWICE A DAY 09/30/2018 03/28/2019 Active albuterol sulfate 2.5 mg/3 mL (0.083 %) solution for nebulization RxNorm: 381295 3 Milliliter(s) INH UD 09/30/201807/2018 Inactive Kenalog 40 mg/mL suspension for injection RxNorm: 9085583 1.5 Milliliter(s) Inj 09/30/2018 09/30/2018 Inactive Keflex 500 mg capsule RxNorm: 151335 1 Capsule(s) PO TID 201710/03/2018 Inactive prednisone 20 mg tablet RxNorm: 214479 2 Tablet(s) PO daily 09/29/2018 Inactive Kenalog 40 mg/mL suspension for injection RxNorm: 9247299 Milliliter(s) Inj 09/11/2018 09/11/2018 Inactive Zyrtec 10 mg tablet RxNorm: 7461871 1 Tablet(s) PO daily 09/0910/08/2018 Inactive Keflex 500 mg capsule RxNorm: 906585 1 Capsule(s) PO TID 201709/15/2018 Inactive Tresiba FlexTouch U-200 insulin 200 unit/mL (3 mL) subcutaneous pen RxNorm: 7892458 50 Unit(s) SQ daily 08/30/2018 08/29/2018 Inactive please give him 30 day supply Tresiba FlexTouch U-200 insulin 200 unit/mL (3 mL) subcutaneous pen RxNorm: 3723312 50 Unit(s) SQ daily 08/30/2018 09/28/2018 Inactive please give him 30 day supply Novolog Flexpen U-100 Insulin aspart 100 unit/mL subcutaneous RxNorm: 1758052 8 Unit(s) SQ AC 08/13/2018 No Stop Date Active Novolog Flexpen U-100 Insulin aspart 100 unit/mL subcutaneous RxNorm: 0254689 8 Unit(s) SQ AC 07/22/20182017 Inactive this is an update on his medication Novolog Flexpen U-100 Insulin aspart 100 unit/mL subcutaneous RxNorm: 2784777 12 Unit(s) SQ AC 07/05/20182017 Inactive this is an update on his medication Toujose SoloStar U-300 Insulin 300 unit/mL (1.5 mL) subcutaneous pen RxNorm: 0015788 INJECT 50 UNITS UNDER THE SKIN DAILY 07/01/2018 08/29/2018 Inactive Mucinex 600 mg tablet, extended release RxNorm: 264185 1 Tablet(s) PO BID 06/28/2018 07/04/2018 Inactive Zofran 4 mg tablet RxNorm: 720573 1 Tablet(s) PO TID as needed nausea 06/28/2018 07/02/2018 Inactive Kenalog 40 mg/mL suspension for injection RxNorm: 1214318 Milliliter(s) Inj 06/28/2018 06/28/2018 Inactive Flonase Allergy Relief 50 mcg/actuation nasal spray, suspension RxNorm: 4798127 1 [place] NASAL BID 06/28/20182017 Inactive Lyrica 50 mg capsule RxNorm: 347870 Capsule(s) PO daily 201707/07/2018 Inactive Novolog Flexpen U-100 Insulin aspart 100 unit/mL subcutaneous RxNorm: 9323665 10 Unit(s) SQ AC 06/18/20182017 Inactive this is an update on his medication Lasix 20 mg tablet RxNorm: 1 Tablet(s) PO BIW 201707/02/2018 Inactive atorvastatin 80 mg tablet RxNorm: 546899 1 Tablet(s) PO QHS 04/201812/06/2018 Active clonazepam 1 mg tablet RxNorm: 267578 2 Tablet(s) PO HS 201706/04/2019 Active clonazepam 1 mg tablet RxNorm: 831946 2 Tablet(s) PO HS as needed 06/10/2018 06/09/2018 Inactive Lyrica 50 mg capsule RxNorm: 039058 Capsule(s) PO daily 201707/08/2018 Inactive Lasix 20 mg tablet RxNorm: 1 Tablet(s) PO TIW 201706/11/2018 Inactive Toujeo SoloStar U-300 Insulin 300 unit/mL (1.5 mL) subcutaneous pen RxNorm: 4062095 50 Unit(s) SQ daily 05/07/2018 06/30/2018 Inactive meloxicam 15 mg tablet RxNorm: 204073 15 Milligram(s) PO daily 05/02/2018 05/12/2018 Inactive ketorolac 30 mg/mL injection solution RxNorm: 934059 2 Milliliter(s) Inj 05/02/2018 05/02/2018 Inactive Toujeo SoloStar U-300 Insulin 300 unit/mL (1.5 mL) subcutaneous pen RxNorm: 3342966 45 Unit(s) daily 04/29/2018 Inactive clonazepam 1 mg tablet RxNorm: 742601 1 Tablet(s) PO Q8 as needed 04/29/2018 06/09/2018 Inactive doxycycline hyclate 100 mg tablet RxNorm: 6091017 1 Tablet(s) PO BID 04/29/2018 05/12/2018 Inactive Cymbalta 30 mg capsule,delayed release RxNorm: 214806 1 Capsule(s) PO QAM 03/13/2018 10/08/2018 Inactive Lexapro 10 mg tablet RxNorm: 109855 1 Tablet(s) PO QPM 201703/03/2018 Inactive Toujeo SoloStar U-300 Insulin 300 unit/mL (1.5 mL) subcutaneous pen RxNorm: 5531865 20 Unit(s) daily 02/28/2018 Inactive Protonix 40 mg tablet,delayed release RxNorm: 727962 1 Tablet(s) PO daily 01/29/2018 06/09/2018 Inactive clonazepam 1 mg tablet RxNorm: 276811 1 Tablet(s) PO Q8 as needed 12/12/2017 03/10/2018 Inactive Tamiflu 75 mg capsule RxNorm: 307566 1 Capsule(s) PO BID 201712/03/2017 Inactive doxycycline hyclate 100 mg capsule RxNorm: 3571060 1 Capsule(s) PO BID 09/07/2017 09/20/2017 Inactive doxycycline hyclate 100 mg capsule RxNorm: 9878464 1 Capsule(s) PO BID 08/27/2017 09/06/2017 Inactive prednisone 20 mg tablet RxNorm: 107575 2 Tablet(s) PO daily 08/31/2017 Inactive clopidogrel 75 mg tablet RxNorm: 253280 1 Tablet(s) PO daily 06/09/2018 Inactive atorvastatin 40 mg tablet RxNorm: 308955 1 Tablet(s) PO QHS 02/27/2018 Inactive losartan 25 mg tablet RxNorm: 503988 TAKE ONE TABLET BY MOUTH DAILY 08/22/2017 06/09/2018 Inactive Toujeo SoloStar 300 unit/mL (1.5 mL) subcutaneous insulin pen RxNorm: 1542227 45 Unit(s) daily 08/17/2017 08/20/2017 Inactive mupirocin 2 % topical ointment RxNorm: 482874 1 Application TOP TID to the lesions on chest 08/16/2017 08/25/2017 Inactive Toujeo SoloStar 300 unit/mL (1.5 mL) subcutaneous insulin pen RxNorm: 9251209 40 Unit(s) daily 08/16/2017 08/16/2017 Inactive valacyclovir 1 gram tablet RxNorm: 010533 1 Tablet(s) PO TID 08/01/2017 Inactive clonazepam 1 mg tablet RxNorm: 108586 1 Tablet(s) PO Q8 as needed 07/03/2017 09/30/2017 Inactive Levaquin 500 mg tablet RxNorm: 595893 1 Tablet(s) PO daily 06/25/2017 Inactive Levaquin 500 mg tablet RxNorm: 444046 1 Tablet(s) PO daily 06/21/2017 Inactive losartan 25 mg tablet RxNorm: 049805 1 Tablet(s) PO daily 201608/16/2017 Inactive nystatin 100,000 unit/mL oral suspension RxNorm: 852882 5 Milliliter(s) PO QID Swish et swallow 06/18/2017 06/17/2017 Inactive nystatin 100,000 unit/mL oral suspension RxNorm: 860907 5 Milliliter(s) PO QID Swish et swallow 06/18/2017 06/27/2017 Inactive Cipro 500 mg tablet RxNorm: 336495 1 Tablet(s) PO BID 201606/18/2017 Inactive Cipro 500 mg tablet RxNorm: 775220 1 Tablet(s) PO BID 201606/11/2017 Inactive Toujeo SoloStar 300 unit/mL (1.5 mL) subcutaneous insulin pen RxNorm: 5548354 INJECT 10 UNITS UNDER THE SKIN DAILY 06/12/2017 08/15/2017 Inactive Keflex 500 mg capsule RxNorm: 667992 1 Capsule(s) PO TID 201606/13/2017 Inactive doxycycline hyclate 100 mg capsule RxNorm: 0277554 1 Capsule(s) PO BID 05/17/2017 05/21/2017 Inactive doxycycline hyclate 100 mg capsule RxNorm: 0292500 1 Capsule(s) PO BID 05/11/2017 05/16/2017 Inactive losartan 25 mg tablet RxNorm: 355203 1 Tablet(s) PO daily 201606/17/2017 Inactive atorvastatin 40 mg tablet RxNorm: 611089 1 Tablet(s) PO daily 03/01/2017 08/23/2017 Inactive clopidogrel 75 mg tablet RxNorm: 667921 1 Tablet(s) PO daily 08/23/2017 Inactive Flonase Allergy Relief 50 mcg/actuation nasal spray, suspension RxNorm: 1712590 2 [place] NASAL daily 02/16/20172016 Inactive Augmentin 875 mg-125 mg tablet RxNorm: 913098 1 Tablet(s) PO BID 02/16/2017 02/22/2017 Inactive GET PROBIOTIC TO TAKE WHILE ON ABX Tamiflu 75 mg capsule RxNorm: 118584 1 Capsule(s) PO BID 201602/20/2017 Inactive ceftriaxone 500 mg solution for injection RxNorm: 0455934 1 Milliliter(s) Inj 02/16/2017 02/16/2017 Inactive Kenalog 40 mg/mL suspension for injection RxNorm: 3945448 1 Milliliter(s) Inj 02/16/2017 02/16/2017 Inactive Toujeo SoloStar 300 unit/mL (1.5 mL) subcutaneous insulin pen RxNorm: 7858067 25 Unit(s) SQ QAM 02/12/2017 06/10/2017 Inactive Toujeo SoloStar 300 unit/mL (1.5 mL) subcutaneous insulin pen RxNorm: 4157940 10 Unit(s) SQ QAM 02/05/2017 02/11/2017 Inactive lisinopril 10 mg tablet RxNorm: 071603 1 Tablet(s) PO daily 02/28/2017 Inactive atorvastatin 40 mg tablet RxNorm: 728741 1 Tablet(s) PO daily 02/01/2017 02/28/2017 Inactive doxycycline hyclate 100 mg capsule RxNorm: 3286517 1 Capsule(s) PO BID 02/01/2017 02/10/2017 Inactive clonazepam 1 mg tablet RxNorm: 938063 1 Tablet(s) PO Q8 as needed 10/09/2016 01/05/2017 Inactive ceftriaxone 1 gram solution for injection RxNorm: 3751701 Inj 10/06/2016 10/06/2016 Inactive cyclobenzaprine 10 mg tablet RxNorm: 390042 1/2-1 Tablet(s) PO TID PRN 07/18/2016 01/28/2017 Inactive clonazepam 1 mg tablet RxNorm: 977580 1 Tablet(s) PO Q8 as needed 05/31/2016 05/29/2016 Inactive clonazepam 1 mg tablet RxNorm: 706868 1 Tablet(s) PO Q8 as needed 05/31/2016 08/28/2016 Inactive Toujeo SoloStar 300 unit/mL (1.5 mL) subcutaneous insulin pen RxNorm: 8233428 10 Unit(s) SQ daily 05/23/2016 01/28/2017 Inactive Crestor 10 mg tablet RxNorm: 341059 1 Tablet(s) PO QHS 201501/28/2017 Inactive Crestor 10 mg tablet RxNorm: 400495 1 Tablet(s) PO QHS 201505/18/2016 Inactive clonazepam 1 mg tablet RxNorm: 774153 1 Tablet(s) PO Q8 as needed 04/25/2016 05/30/2016 Inactive prednisone 20 mg tablet RxNorm: 242228 3 Tablet(s) PO daily 06/201602/10/2016 Inactive prednisone 20 mg tablet RxNorm: 724976 3 Tablet(s) PO daily 06/201605/14/2016 Inactive Kenalog 40 mg/mL suspension for injection RxNorm: 4528763 Milliliter(s) Inj 01/20/2016 01/20/2016 Inactive aspirin 81 mg tablet,delayed release RxNorm: 111699 1 Tablet(s) PO daily No Start Date Active Brilinta 90 mg tablet RxNorm: 9406487 1 Tablet(s) PO BID No Start Date Active acetaminophen 500 mg tablet RxNorm: 069375 1-2 Tablet(s) PO as needed No Start Date Active clopidogrel 75 mg tablet RxNorm: 896409 1 Tablet(s) PO daily No Start Date 02/28/2017 Inactive Novolog Flexpen U-100 Insulin aspart 100 unit/mL subcutaneous RxNorm: 9387037 5 units with breakfast lunch and 10 supper Unit(s) SQ No Start Date 06/17/2018 Inactive clonazepam 1 mg tablet RxNorm: 426926 1 Tablet(s) PO QHS No Start Date 04/24/2016 Inactive Coreg 6.25 mg tablet RxNorm: 265000 1 Tablet(s) PO BID No Start Date 09/29/2018 Inactive acyclovir 400 mg tablet RxNorm: 394397 2 Tablet(s) PO 5x daily No Start Date 02/28/2017 Inactive Lyrica 50 mg capsule RxNorm: 327367 Capsule(s) PO BID No Start Date 06/09/2018 Inactive Vraylar 3 mg capsule RxNorm: 8021519 1 Capsule(s) PO daily No Start Date 03/12/2018 Inactive valsartan 80 mg tablet RxNorm: 992664 1 Tablet(s) PO daily No Start Date 10/22/2018 Inactive Medication Administered Medication Codes Instructions Start Date Status ketorolac 60 mg/2 mL intramuscular solution RxNorm: 5388113 Milliliter 10/21/2018 No longer Active Kenalog 40 mg/mL suspension for injection RxNorm: 6422052 1.5Milliliter 09/30/2018 No longer Active Kenalog 40 mg/mL suspension for injection RxNorm: 0276633 Milliliter 09/11/2018 No longer Active Kenalog 40 mg/mL suspension for injection RxNorm: 4873399 Milliliter 06/28/2018 No longer Active ketorolac 30 mg/mL injection solution RxNorm: 856474 2Milliliter 05/02/2018 No longer Active ceftriaxone 500 mg solution for injection RxNorm: 1339008 1Milliliter 02/16/2017 No longer Active Kenalog 40 mg/mL suspension for injection RxNorm: 1139348 1Milliliter 02/16/2017 No longer Active ceftriaxone 1 gram solution for injection RxNorm: 6100477 10/06/2016 No longer Active Kenalog 40 mg/mL suspension for injection RxNorm: 8884255 Milliliter 01/20/2016 No longer Active Immunizations Vaccine [...] Item Item Code Result Date Culture Sputum [id number] LOWER RESPIRATORY TRACT CULTURE SEE NOTES 10/16/2018 LIPID GRP [id number] CHOLESTEROL TNP:Duplicate Order 09/10/2018 LIPID GRP [id number] Triglyceride TNP:Duplicate Order 2017 LIPID GRP 4497599 HDL CHOLESTEROL TNP:Duplicate Order 2017 LIPID GRP 7815663 Chol/HDL Ratio TNP:Duplicate Order 2017 LIPID GRP 1575404 LDL Cholesterol TNP:Duplicate Order 2017 A1C HPLC 8071692 Hgb A1c 88991-3 TNP:Duplicate Order 2017 C Diff An [id number] GDH TNP:Lab Request 06/22/2018 C Diff An [id number] Toxin A/B TNP:Lab Request 06/22/2018 C Diff An [id number] C Diff Analyzer TNP:Lab Request 2017 C Diff An [id number] IC OK? TNP:Lab Request 06/22/2018 CBC 8421455 WBC 6.4 10e9/L 05/02/2018 CBC 9177148 RBC 5.60 10e12/L 05/02/2018 CBC 5478415 HEMOGLOBIN 17.0 g/dL 05/02/2018 CBC 0603942 HEMATOCRIT 48.0 % 05/02/2018 CBC 6832824 MCV 85.7 fL 05/02/2018 CBC 9815873 MCH 30.4 pg 05/02/2018 CBC 0665572 MCHC 35.4 g/dL 05/02/2018 CBC 5665536 PLATELET COUNT 166 10e9/L 05/02/2018 CBC 2442279 Mean Plt Volume 11.6 fL 05/02/2018 CBC 5987481 Neut Auto 48.6 % 05/02/2018 CBC 9882041 Lymph Auto 41.7 % 05/02/2018 CBC 8483592 [place] Auto 8.1 % 05/02/2018 CBC 5661006 RDW 13.1 % 05/02/2018 CBC 5391362 Eos Auto 1.1 % 05/02/2018 CBC 3782487 Baso Auto 0.5 % 05/02/2018 CBC 2158982 Neutrophil Abs 3.11 10e9/L 05/02/2018 CBC 5293979 Lymphocyte Abs 2.67 10e9/L 05/02/2018 CBC 5886642 Monocyte Abs 0.52 10e9/L 05/02/2018 CBC 0496042 Eosinophil Abs 0.07 10e9/L 05/02/2018 CBC 5285202 RDW-SD 40.0 fL 05/02/2018 CBC 0862564 Basophil Abs 0.03 10e9/L 05/02/2018 CHEM 14 4608131 AST 17 U/L 05/02/2018 CHEM 14 3361198 ALT 17 U/L 05/02/2018 CHEM 14 6022979 BUN 17 mg/dL 05/02/2018 CHEM 14 7311302 ALBUMIN 4.0 g/dL 05/02/2018 CHEM 14 8712263 CHLORIDE 97 mmol/L 05/02/2018 CHEM 14 9543273 Bili Total 0.9 mg/dL 05/02/2018 CHEM 14 6143076 ALK PHOS 67 U/L 05/02/2018 CHEM 14 5043701 SODIUM 135 mmol/L 05/02/2018 CHEM 14 2102915 CREATININE 1.18 mg/dL 05/02/2018 CHEM 14 0802876 CALCIUM 9.4 mg/dL 05/02/2018 CHEM 14 9833148 POTASSIUM 4.4 mmol/L 05/02/2018 CHEM 14 4454809 TOTAL PROTEIN 6.9 g/dL 05/02/2018 CHEM 14 9687748 GLUCOSE 316 mg/dL 05/02/2018 CHEM 14 0812739 Bicarbonate 29 mmol/L 05/02/2018 CHEM 14 5782154 AGAP 9 mmol/L 05/02/2018 MEAN GLUC 9169423 Calc Mean Gluc 283 mg/dL 05/02/2018 A1C HPLC 3508046 Hgb A1c 87422-7 11.5 % 05/02/2018 GFR CALC 0306692 GFR Non Afr Amr >60 mL/min 05/02/2018 GFR CALC 9436338 GFR Afr Amr >60 mL/min 05/02/2018 [facility] Gold [id number] JI Gold Complete 02/28/2018 GFR CALC 1095009 GFR Non Afr Amr >60 mL/min 02/28/2018 GFR CALC 6079794 GFR Afr Amr >60 mL/min 02/28/2018 UA W/CII 6931064 UA Urine Appear Normal 02/28/2018 UA W/CII 1610819 UA Protein 1+ 02/28/2018 UA W/CII 1415437 UA Hemoglobin Negative 02/28/2018 UA W/CII 0006602 UA Glucose 4+ 02/28/2018 UA W/CII 4503907 UA Ketones Trace 02/28/2018 UA W/CII 2583603 UA pH 5.5 02/28/2018 UA W/CII 4210338 U Spec [place] 1.015 02/28/2018 UA W/CII 5524737 UA Bilirubin Negative 02/28/2018 UA W/CII 5813868 UA Nitrite NEG 02/28/2018 UA W/CII 3794421 UA Leuk Esteras Negative 02/28/2018 MICR 3625745 UA WBC/hpf 1 02/28/2018 MICR 2110888 UA RBC hpf 2 02/28/2018 MICR 3964720 UA WBC auto 3.8 /uL 02/28/2018 MICR 2137803 UA RBC auto 12.2 /uL 02/28/2018 MICR 4576787 UA SQ EPI auto 2.3 /uL 02/28/2018 MICR 4796445 UA H Cast auto 0.10 /uL 02/28/2018 CBC 5461608 WBC 6.4 10e9/L 02/28/2018 CBC 8357119 RBC 5.51 10e12/L 02/28/2018 CBC 0460307 HEMOGLOBIN 16.7 g/dL 02/28/2018 CBC 1116212 HEMATOCRIT 46.9 % 02/28/2018 CBC 0849631 MCV 85.1 fL 02/28/2018 CBC 1666423 MCH 30.3 pg 02/28/2018 CBC 3904686 MCHC 35.6 g/dL 02/28/2018 CBC 3945799 PLATELET COUNT 173 10e9/L 02/28/2018 CBC 5832160 Mean Plt Volume 11.6 fL 02/28/2018 CBC 9867004 Neut Auto 51.8 % 02/28/2018 CBC 2398533 Lymph Auto 39.9 % 02/28/2018 CBC 6835515 [place] Auto 7.3 % 02/28/2018 CBC 1106101 Eos Auto 0.8 % 02/28/2018 CBC 1152381 RDW 13.3 % 02/28/2018 CBC 1516778 Baso Auto 0.2 % 02/28/2018 CBC 8818328 Neutrophil Abs 3.32 10e9/L 02/28/2018 CBC 3451755 Lymphocyte Abs 2.55 10e9/L 02/28/2018 CBC 1236890 Monocyte Abs 0.47 10e9/L 02/28/2018 CBC 1434070 Eosinophil Abs 0.05 10e9/L 02/28/2018 CBC 5172125 Basophil Abs 0.01 10e9/L 02/28/2018 CBC 4696869 RDW-SD 40.8 fL 02/28/2018 CHEM 14 0532253 AST 17 U/L 02/28/2018 CHEM 14 3202819 ALT 17 U/L 02/28/2018 CHEM 14 4240138 BUN 20 mg/dL 02/28/2018 CHEM 14 1012548 ALBUMIN 4.1 g/dL 02/28/2018 CHEM 14 0979932 CHLORIDE 97 mmol/L 02/28/2018 CHEM 14 6857413 Bili Total 1.3 mg/dL 02/28/2018 CHEM 14 8540199 ALK PHOS 78 U/L 02/28/2018 CHEM 14 9339514 SODIUM 135 mmol/L 02/28/2018 CHEM 14 4902765 CREATININE 1.09 mg/dL 02/28/2018 CHEM 14 1860155 CALCIUM 9.6 mg/dL 02/28/2018 CHEM 14 4800437 POTASSIUM 3.8 mmol/L 02/28/2018 CHEM 14 6658470 TOTAL PROTEIN 7.3 g/dL 02/28/2018 CHEM 14 2145957 GLUCOSE 349 mg/dL 02/28/2018 CHEM 14 9433327 Bicarbonate 29 mmol/L 02/28/2018 CHEM 14 3436282 AGAP 9 mmol/L 02/28/2018 [place] Spotted Fever Igg/Igm 422190 FEI MT SPOTTED FEVER IGM EIA . 09/05/2017 [place] Spotted Fever Igg/Igm 064262 RMSF, IGM 0.17 index 09/05/2017 [place] Spotted Fever Igg/Igm 127658 FEI MT SPOTTED FEVER IGG EIA FLEX . 09/05/2017 [place] Spotted Fever Igg/Igm 889923 RMSF, IGG SCREEN-FLEX Positive 09/05/2017 Fei Mtn Spot'D Fev Igg 572391 RMSF, IGG -TITER IFA <1:64 11/2016 Ehrlichia Chaffeensis Antibody Igm 838496 EHRLICHIA CHAFFEENSIS IGM < 1:16 09/03/2017 Ehrlichia [place]affeensis Antibody Igg 573966 EHRLICHIA CHAFFEENSIS IGG <1:64 09/03/2017 Lymes Disease Total Antibodies With Western Blot Reflex B. BURGDORFERI, IGG/IGM 0.223 08/30/2017 Lymes Disease Total Antibodies With Western Blot Reflex C-Reactive Protein Qnt Crqnt CRP 0.00 mg/dl 08/27/2017 Sed Rate Ord21 ESR 8 mm/hr 08/27/2017 Comp Metabolic Que466 NA 135 mEq/L 08/16/2017 Comp Metabolic Qnl515 K 4.1 mEq/L 08/16/2017 Comp Metabolic Rje099 CL 98 mEq/L 08/16/2017 Comp Metabolic Yds125 CO2 28.0 mEq/L 08/16/2017 Comp Metabolic Svy628 ANION GAP 13 08/16/2017 Comp Metabolic Biv551 GLUCOSE 299 mg/dL 08/16/2017 Comp Metabolic Ure759 Creat 0.9 mg/dL 08/16/2017 Comp Metabolic Kbp064 eGFR 90 ml/min/1.73m2 08/16/2017 Comp Metabolic Akf905 BUN 20 mg/dL 08/16/2017 Comp Metabolic Pic388 B/C Ratio 21.5 Ratio 08/16/2017 Comp Metabolic Ffm518 CALCIUM 9.2 mg/dL 08/16/2017 Comp Metabolic Wod142 ALK PHOS 84 U/L 08/16/2017 Comp Metabolic Agk428 AST(SGOT) 19 U/L 08/16/2017 Comp Metabolic Sbm854 ALT(SGPT) 24 U/L 08/16/2017 Comp Metabolic Gzs088 BILI T 1.1 mg/dL 08/16/2017 Comp Metabolic Oxo794 ALBUMIN 4.2 g/dL 08/16/2017 Comp Metabolic Bvt317 TPRO 7.2 g/dL 08/16/2017 Comp Metabolic Zfa933 GLOB 3.0 g/dL 08/16/2017 Comp Metabolic Xfd499 A/G Ratio 1.4 Ratio 08/16/2017 Comp Metabolic Lcq494 Osmo 284 mOsmo 08/16/2017 %Hba1C Kdy063 % HbA1c 06943-2 12.5 % 08/16/2017 %Hba1C Wem669 Gluc Ave 312 mg/dL 08/16/2017 Urine Culture Ucult Complete NO Growth Day 2 06/23/2017 Urine Culture Ucult Preliminary NO Growth Day 1 06/23/2017 C RAP A SC [id number] Strep A Negative 06/08/2017 %Hba1C Hxn095 % HbA1c 40787-6 9.5 % 05/04/2017 %Hba1C Weq963 Gluc Ave 226 mg/dL 05/04/2017 Tsh Ord6 [...] 31.7 pg 05/04/2017 Cbc With Differential Ord2 [place]% 8.5 % 05/04/2017 Cbc With Differential Ord2 [...] 2.48 K/ul 05/04/2017 Cbc With Differential Ord2 [place] ABS# 0.5 K/ul 05/04/2017 Cbc With Differential Ord2 Eos ABS# 0.1 K/ul 05/04/2017 Cbc With Differential Ord2 Baso ABS# 0.0 K/ul 05/04/2017 Comp Metabolic Jxk628 NA 135 mEq/L 05/04/2017 Comp Metabolic Xos732 K 4.2 mEq/L 05/04/2017 Comp Metabolic Utt860 CL 99 mEq/L 05/04/2017 Comp Metabolic Vyb965 CO2 26.0 mEq/L 05/04/2017 Comp Metabolic Jxz560 ANION GAP 14 05/04/2017 Comp Metabolic Jjv857 GLUCOSE 277 mg/dL 05/04/2017 Comp Metabolic Sim277 Creat 0.9 mg/dL 05/04/2017 Comp Metabolic Yxh975 eGFR 96 ml/min/1.73m2 05/04/2017 Comp Metabolic Dhx874 BUN 23 mg/dL 05/04/2017 Comp Metabolic Iug210 B/C Ratio 26.1 Ratio 05/04/2017 Comp Metabolic Kvo915 CALCIUM 8.9 mg/dL 05/04/2017 Comp Metabolic Fmt392 ALK PHOS 81 U/L 05/04/2017 Comp Metabolic Ies675 AST(SGOT) 21 U/L 05/04/2017 Comp Metabolic Mrr949 ALT(SGPT) 27 U/L 05/04/2017 Comp Metabolic Xqv958 BILI T 1.2 mg/dL 05/04/2017 Comp Metabolic Ive762 ALBUMIN 4.0 g/dL 05/04/2017 Comp Metabolic Ded468 TPRO 6.7 g/dL 05/04/2017 Comp Metabolic Eoa448 GLOB 2.7 g/dL 05/04/2017 Comp Metabolic Zzb624 A/G Ratio 1.5 Ratio 05/04/2017 Comp Metabolic Soh602 Osmo 284 mOsmo 05/04/2017 C A/B FLU [id number] Influenza A Scr Negative 02/16/2017 C A/B FLU 3835968 Influenza B Scr Positive 02/16/2017 Cbc With [...] 39.7 % 05/23/2016 Cbc With Differential Ord2 [place]% 8.8 % 05/23/2016 Cbc With Differential Ord2 [...] 2.07 K/ul 05/23/2016 Cbc With Differential Ord2 [place] ABS# 0.5 K/ul 05/23/2016 Cbc With Differential Ord2 Eos ABS# 0.1 K/ul 05/23/2016 Cbc With Differential Ord2 Baso ABS# 0.0 K/ul 05/23/2016 Lipid Ord30 CHOL 397 mg/dL 05/17/2016 Lipid Ord30 HDL 48.0 mg/dl 05/17/2016 Lipid Ord30 TRIG 578 mg/dL 05/17/2016 Lipid Ord30 LDL Unable to calculate Due to elevated triglycerides mg/dL 05/17/2016 Lipid Ord30 C/HDL 8.3 Ratio 05/17/2016 %Hba1C Ict721 % HbA1c 21266-1 12.4 % 05/16/2016 %Hba1C Kxk965 Gluc Ave 309 mg/dL 05/16/2016 Cbc With [...] 87.4 fl 05/15/2016 Cbc With Differential Ord2 [place]% 7.8 % 05/15/2016 Cbc With Differential Ord2 [...] 2.04 K/ul 05/15/2016 Cbc With Differential Ord2 [place] ABS# 0.5 K/ul 05/15/2016 Cbc With Differential Ord2 Eos ABS# 0.1 K/ul 05/15/2016 Cbc With Differential Ord2 Baso ABS# 0.0 K/ul 05/15/2016 Tsh Ord6 hTSH II 1.70 uIU/mL 05/15/2016 Comp Metabolic Job397 NA 135 mEq/L 05/15/2016 Comp Metabolic Pwc929 K 3.9 mEq/L 05/15/2016 Comp Metabolic Qzw348 CL 96 mEq/L 05/15/2016 Comp Metabolic Erf755 CO2 27.0 mEq/L 05/15/2016 Comp Metabolic Rwl706 ANION GAP 16 05/15/2016 Comp Metabolic Xyv385 GLUCOSE 183 mg/dL 05/15/2016 Comp Metabolic Jno042 Creat 1.1 mg/dL 05/15/2016 Comp Metabolic Gsu563 eGFR 71 ml/min/1.73m2 05/15/2016 Comp Metabolic Olz077 BUN 17 mg/dL 05/15/2016 Comp Metabolic Gwa881 B/C Ratio 14.9 Ratio 05/15/2016 Comp Metabolic Pix790 CALCIUM 9.6 mg/dL 05/15/2016 Comp Metabolic Slh180 ALK PHOS 100 U/L 05/15/2016 Comp Metabolic Nso894 AST(SGOT) 20 U/L 05/15/2016 Comp Metabolic Pll757 ALT(SGPT) 20 U/L 05/15/2016 Comp Metabolic Pkb325 BILI T 1.3 mg/dL 05/15/2016 Comp Metabolic Abt642 ALBUMIN 4.6 g/dL 05/15/2016 Comp Metabolic Emx861 TPRO 8.1 g/dL 05/15/2016 Comp Metabolic Tfp736 GLOB 3.5 g/dL 05/15/2016 Comp Metabolic Hxa994 A/G Ratio 1.3 Ratio 05/15/2016 Comp Metabolic Icd493 Osmo 276 mOsmo 05/15/2016 Review of Systems [...] of skin Location: face 05/04/2017 patch left jewish Full Exam - General 1994 Constitutional general [...] CPT-4: J3301 09/30/2018 THER/PROPH/DIAG INJ SC/IM CPT-4: 71781 09/11/2018 TRIAMCINOLONE ACET INJ NOS CPT-4: J3301 09/11/2018 IMMUNIZATION ADMIN CPT -4: 94109 07/22/2018 FLU VAC NO PRSV 4 MENA 3 YRS+ CPT-4: 92912 07/22/2018 TRIAMCINOLONE ACET INJ NOS CPT-4: J3301 06/28/2018 KETOROLAC TROMETHAMINE INJ CPT-4: J1885 05/02/2018 FLU VAC NO PRSV 4 MENA 3 YRS+ CPT-4: 86553 08/16/2017 IMMUNIZATION ADMIN CPT -4: 60451 08/16/2017 URINALYSIS NONAUTO W/O SCOPE CPT-4: 15469 06/21/2017 TRIAMCINOLONE ACET INJ NOS CPT-4: J3301 05/04/2017 THER/PROPH/DIAG INJ SC/IM CPT-4: 20326 05/04/2017 TRIAMCINOLONE ACET INJ NOS CPT-4: J3301 02/16/2017 ROCEPHIN, PER 250 MG CPT-4: J0696 02/16/2017 ROCEPHIN, PER 250 MG CPT-4: J0696 10/06/2016 URINALYSIS NONAUTO W/O SCOPE CPT-4: 30801 07/18/2016 TRIAMCINOLONE ACET INJ NOS CPT-4: J3301 01/20/2016 Vital Signs Date Vital 11/12/2018 Blood Pressure 1: 138/76 Code : 8480-6 BMI: 33.9 Code : 44795-1 Heart Rate 1 : 91 bpm Height: 6'2" SpO2: 99% Weight: 264 lbs 10/30/2018 Blood Pressure 1: 130/72 Code : 8480-6 BMI: 33.3 Code : 52815-4 Heart Rate 1 : 83 bpm Height: 6'2" SpO2: 95% Temperature: 36.5 (C) / 97.7 (F) Weight: 259 lbs 10/24/2018 Blood Pressure 1: 130/70 Code : 8480-6 Heart Rate 1: 95 bpm Height: 6'2" SpO2: 96% 10/23/2018 Blood Pressure 1: 100/70 Code : 8480-6 Blood Pressure 2: 102/70 Code: 8480-6 BMI: 33.3 Code: 98503-7 Heart Rate 1: 106 bpm Height: 6'2" SpO2: 98% Weight: 259 lbs 10/21/2018 Blood Pressure 1: 140/90 Code : 8480-6 BMI: 32.9 Code : 73009-9 Heart Rate 1 : 96 bpm Height: 6'2" SpO2: 92% Weight: 256 lbs 10/17/2018 Blood Pressure 1: 110/68 Code : 8480-6 BMI: 32.9 Code : 34862-9 Heart Rate 1 : 82 bpm Height: 6'2" SpO2: 97% Weight: 256 lbs 10/14/2018 Blood Pressure 1: 124/70 Code : 8480-6 BMI: 33.6 Code : 15595-9 Heart Rate 1 : 76 bpm Height: 6'2" SpO2: 99% Temperature: 36.3 (C) / 97.3 (F) Weight: 262 lbs 09/30/2018 Blood Pressure 1: 138/82 Code : 8480-6 BMI: 33.6 Code : 95731-7 Heart Rate 1 : 82 bpm Height: 6'2" SpO2: 98% Temperature: 36.3 (C) / 97.3 (F) Weight: 262 lbs 09/09/2018 Blood Pressure 1: 140/80 Code : 8480-6 BMI: 33.0 Code : 43103-6 Heart Rate 1 : 97 bpm Height: 6'2" SpO2: 93% Temperature: 36.8 (C) / 98.2 (F) Weight: 257 lbs 07/22/2018 Blood Pressure 1: 120/78 Code : 8480-6 BMI: 31.6 Code : 33185-8 Heart Rate 1 : 87 bpm Height: 6'2" SpO2: 98% Weight: 246 lbs 07/16/2018 Blood Pressure 1: 132/74 Code : 8480-6 BMI: 31.2 Code : 39547-3 Heart Rate 1 : 90 bpm Height: 6'2" SpO2: 96% Weight: 243 lbs 07/01/2018 Blood Pressure 1: 142/82 Code : 8480-6 BMI: 31.8 Code : 92520-1 Heart Rate 1 : 88 bpm Height: 6'2" SpO2: 98% Weight: 248 lbs 06/28/2018 Blood Pressure 1: 132/76 Code : 8480-6 BMI: 31.8 Code : 69084-6 Heart Rate 1 : 107 bpm Height: 6'2" SpO2: 98% Temperature: 37.9 (C) / 100.3 (F) Weight: 248 lbs 06/18/2018 Blood Pressure 1: 138/82 Code : 8480-6 BMI: 31.8 Code : 17622-8 Heart Rate 1 : 82 bpm Height: 6'2" SpO2: 97% Weight: 248 lbs 06/04/2018 Blood Pressure 1: 128/84 Code : 8480-6 BMI: 33.9 Code : 71689-4 Heart Rate 1 : 86 bpm Height: 6'2" SpO2: 95% Weight: 264 lbs 05/13/2018 Blood Pressure 1: 130/80 Code : 8480-6 BMI: 31.1 Code : 77720-6 Heart Rate 1 : 100 bpm Height: 6'2" SpO2: 94% Weight: 242 lbs 05/02/2018 Blood Pressure 1: 134/84 Code : 8480-6 BMI: 31.2 Code : 12361-2 Heart Rate 1 : 93 bpm Height: 6'2" SpO2: 98% Weight: 243 lbs 04/29/2018 Blood Pressure 1: 142/88 Code : 8480-6 BMI: 31.6 Code : 05196-0 Heart Rate 1 : 96 bpm Height: 6'2" SpO2: 96% Temperature: 36.7 (C) / 98.1 (F) Weight: 246 lbs 03/13/2018 Blood Pressure 1: 120/76 Code : 8480-6 BMI: 30.9 Code : 39964-0 Heart Rate 1 : 112 bpm Height: 6'2" SpO2: 97% Weight: 241 lbs 03/07/2018 Blood Pressure 1: 108/78 Code : 8480-6 BMI: 30.0 Code : 67659-8 Heart Rate 1 : 87 bpm Height: 6'2" SpO2: 98% Weight: 234 lbs 02/28/2018 Blood Pressure 1: 106/74 Code : 8480-6 BMI: 30.0 Code : 51168-8 Heart Rate 1 : 101 bpm Height: 6'2" SpO2: 98% Temperature: 36.4 (C) / 97.5 (F) Weight: 234 lbs 02/13/2018 Blood Pressure 1: 11078 Code : 8480-6 BMI: 30.0 Code : 21346-5 Heart Rate 1 : 106 bpm Height: 6'2" SpO2: 98% Weight: 234 lbs 01/29/2018 Blood Pressure 1: 106/68 Code : 8480-6 BMI: 30.0 Code : 03979-4 Heart Rate 1 : 108 bpm Height: 6'2" SpO2: 98% Weight: 234 lbs 08/27/2017 Blood Pressure 1: 134/76 Code : 8480-6 Heart Rate 1: 98 bpm Height: SpO2: 97% Weight: 08/16/2017 Blood Pressure 1: 128/80 Code : 8480-6 BMI: 32.0 Code : 45934-8 Heart Rate 1 : 94 bpm Height: [...] Code : 8480-6 BMI: 31.8 Code : 40368-4 Heart Rate 1 : 102 bpm Height: [...] Code : 8480-6 BMI: 31.8 Code : 02011-9 Heart Rate 1 : 85 bpm Height: 6'2" SpO2: 96% Temperature: 36.6 (C) / 97.9 (F) Weight: 248 lbs 02/12/2017 Blood Pressure 1: 126/76 Code : 8480-6 BMI: 31.8 Code : 93859-4 Heart Rate 1 : 106 bpm Height: 6'2" SpO2: 91% Weight: 248 lbs 02/05/2017 Blood Pressure 1: 146/86 Code : 8480-6 BMI: 31.9 Code : 79436-4 Heart Rate 1 : 98 bpm Height: 6'2" SpO2: 87% Temperature: 36.7 (C) / 98.0 (F) Weight: 248 lbs 8 oz 01/29/2017 Blood Pressure 1: 132/84 Code : 8480-6 BMI: 31.8 Code : 40198-4 Heart Rate 1 : 83 bpm Height: 6'2" SpO2: 97% Weight: 248 lbs 10/13/2016 Blood Pressure 1: 128/72 Code : 8480-6 Heart Rate 1: 86 bpm SpO2: 94% 10/09/2016 Blood Pressure 1: 128/68 Code : 8480-6 Heart Rate 1: 136 bpm SpO2: 94% Temperature: 36.8 (C) / 98.2 (F) 10/06/2016 Blood Pressure 1: 140/80 Code : 8480-6 BMI: 32.1 Code : 11149-2 Heart Rate 1 : 94 bpm Height: 6'2" SpO2: 95% Weight: 250 lbs 07/18/2016 Blood Pressure 1: 128/86 Code : 8480-6 BMI: 32.1 Code : 42779-6 Heart Rate 1 : 89 bpm Height: 6'2" SpO2: 96% Weight: 250 lbs 06/22/2016 Blood Pressure 1: 118/70 Code : 8480-6 BMI: 32.1 Code : 40098-5 Heart Rate 1 : 70 bpm Height: 6'2" SpO2: 97% Weight: 250 lbs 05/23/2016 Blood Pressure 1: 128/80 Code : 8480-6 BMI: 32.1 Code : 10457-0 Heart Rate 1 : 76 bpm Height: 6'2" SpO2: 98% Weight: 250 lbs 05/15/2016 Blood Pressure 1: 110/90 Code : 8480-6 BMI: 31.3 Code : 59937-8 Heart Rate 1 : 111 bpm Height: 6'2" SpO2: 97% Temperature: 36.6 (C) / 97.8 (F) Weight: 244 lbs 01/20/2016 Blood Pressure 1: 128/76 Code : 8480-6 BMI: 33.0 Code : 90013-7 Heart Rate 1 : 103 bpm Height: [...] data Encounters Encounter Performer Location Codes Date ([id number] 71417 EST. PATIENT, LEVEL III Diagnosis: Cough[ICD10: R05] Diagnosis: Pneumonia due to other Gram-negative bacteria[ICD10: J15.6] Marcela Ha MD, [facility] CPT-4: 00402 11/12/2018 ([id number]) 20865 EST. PATIENT, LEVEL III Diagnosis: Pneumonia due to other Gram-negative bacteria[ICD10: J15.6] Diagnosis: Cough[ICD10: R05] Melida Ha MD, [facility] CPT-4: 81043 10/30/2018 ([id number]) 31432 EST. PATIENT, LEVEL II Diagnosis: Pain in joints of right hand[ICD10: M25.541] Diagnosis: Trigger finger, right middle finger[ICD10: M65.331] Marcela Ha MD, [facility] CPT-4: 62827 10/24/2018 ([id number]) 01809 EST. PATIENT, LEVEL IV Diagnosis: Essential (primary) hypertension[ICD10: I10] Diagnosis: Type 2 diabetes mellitus with foot ulcer[ICD10: E11.621] Melida Ha MD, [facility] CPT-4: 15133 10/23/2018 ([id number]) 58930 EST. PATIENT, LEVEL III Diagnosis: Cellulitis of right finger[ICD10: L03.011] Diagnosis: Type 2 diabetes mellitus with foot ulcer[ICD10: E11.621] Diagnosis: Pain in right hand[ICD10: M79.641] Melida Ha MD, [facility] CPT-4: 58507 10/21/2018 83463 EST. PATIENT, LEVEL III Diagnosis: Spontaneous ecchymoses[ICD10: R23.3] Diagnosis: Cellulitis of right lower limb[ICD10: L03.115] Diagnosis: Cellulitis of left lower limb[ICD10: L03.116] Madeline Ha MD, [facility] CPT-4: 23375 10/17/2018 ([id number]) 35285 EST. PATIENT, LEVEL III Diagnosis: Cough[ICD10: R05] Diagnosis: Acute bronchitis, unspecified[ICD10: J20.9] Melida Ha MD, [facility] CPT-4: 11756 10/14/2018 06135 EST. PATIENT, LEVEL III Diagnosis: Acute laryngopharyngitis[ICD10: J06.0] Diagnosis: Cough[ICD10: R05] Madeline Ha MD, [facility] CPT-4: 19424 09/30/2018 ([id number]) 45656 EST. PATIENT, LEVEL III Diagnosis: Acute recurrent maxillary sinusitis[ICD10: J01.01] Diagnosis: Cough[ICD10: R05] Diagnosis: Type 2 diabetes mellitus with hyperglycemia[ICD10: E11.65] Marcela Ha MD, [facility] CPT-4: 84855 09/09/2018 ([id number]) 13917 EST. PATIENT, LEVEL IV Diagnosis: Essential (primary) hypertension[ICD10: I10] Diagnosis: Mixed hyperlipidemia[ICD10: E78.2] Diagnosis: Bipolar disorder, current episode depressed, moderate[ICD10: F31.32] Diagnosis: Type 2 diabetes mellitus with other specified complication[ICD10: E11.69] Melida Ha MD, [facility] CPT-4: 25076 2017 ([id number]) 81645 EST. PATIENT, LEVEL III Diagnosis: Insomnia due to medical condition[ICD10: G47.01] Marcela Ha MD, [facility] CPT-4: 76977 07/16/2018 ([id number]) Miscellaneous no charge Diagnosis: Cough[ICD10: R05] Madeline Ha MD, [facility] CPT-4: 85415 07/01/2018 [id number] EST. PATIENT, LEVEL III Diagnosis: Cough[ICD10: R05] Diagnosis: Acute laryngopharyngitis[ICD10: J06.0] Diagnosis: Other allergic rhinitis[ICD10: J30.89] Madeline Ha MD, [facility] CPT-4: 76636 06/28/2018 ([id number]) 99793 EST. PATIENT, LEVEL IV Diagnosis: Type 2 diabetes mellitus with hyperglycemia[ICD10: E11.65] Diagnosis: Essential (primary) hypertension[ICD10: I10] Melida Ha MD, [facility] CPT-4: 20551 06/18/2018 ([id number]) 87225 EST. PATIENT, LEVEL IV Diagnosis: Type 2 diabetes mellitus with hyperglycemia[ICD10: E11.65] Diagnosis: Essential (primary) hypertension[ICD10: I10] Diagnosis: Localized edema[ICD10: R60.0] Melida Ha MD, [facility] CPT- 4: 34806 06/04/2018 ([id number]) 35765 EST. PATIENT, LEVEL III Diagnosis: Type 2 diabetes mellitus with hyperglycemia[ICD10: E11.65] Diagnosis: Myalgia[ICD10: M79.1] Diagnosis: Pain in right hip[ICD10: M25.551] Diagnosis: Pain in left hip[ICD10: M25.552] Marcela Ha MD, [facility] CPT-4: 56527 05/13/2018 ([id number]) 12394 EST. PATIENT, LEVEL III Diagnosis: Myalgia[ICD10: M79.1] Diagnosis: Pain in right hip[ICD10: M25.551] Diagnosis: Pain in left hip[ICD10: M25.552] Marcela Ha MD, [facility] CPT-4: 06854 05/02/2018 ([id number]) 96722 EST. PATIENT, LEVEL IV Diagnosis: Essential (primary) hypertension[ICD10: I10] Diagnosis: Type 2 diabetes mellitus with hyperglycemia[ICD10: E11.65] Diagnosis: Major depressive disorder, single episode, moderate[ICD10: F32.1] Diagnosis: Myalgia[ICD10: M79.1] Marcela Ha MD, [facility] CPT-4: 76072 04/29/2018 ([id number]) 58866 EST. PATIENT, LEVEL IV Diagnosis: Type 2 diabetes mellitus with hyperglycemia[ICD10: E11.65] Diagnosis: Essential (primary) hypertension[ICD10: I10] Diagnosis: Major depressive disorder, single episode, moderate[ICD10: F32.1] Melida Ha MD, [facility] CPT-4: 06638 03/13/2018 ([id number]) 47471 EST. PATIENT, LEVEL III Diagnosis: Type 2 diabetes mellitus with hyperglycemia[ICD10: E11.65] Diagnosis: Bipolar disorder, current episode depressed, moderate[ICD10: F31.32] Diagnosis: Orthostatic hypotension[ICD10: I95.1] Marcela Ha MD, [facility] CPT-4: 26745 03/07/2018 ([id number]) 69759 EST. PATIENT, LEVEL IV Diagnosis: Type 2 diabetes mellitus with hyperglycemia[ICD10: E11.65] Diagnosis: Major depressive disorder, single episode, moderate[ICD10: F32.1] Diagnosis: Orthostatic hypotension[ICD10: I95.1] Diagnosis: Other fatigue[ICD10: R53.83] Marcela Ha MD, [facility] CPT-4: 74485 02/28/2018 06682 EST. PATIENT, LEVEL IV Diagnosis: Other fatigue[ICD10: R53.83] Diagnosis: Other malaise[ICD10: R53.81] Diagnosis: Gastro-esophageal reflux disease without esophagitis[ICD10: K21.9] Madeline Ha MD, [facility] CPT-4: 19561 02/13/2018 ([id number]) 93670 EST. PATIENT, LEVEL IV Diagnosis: Type 2 diabetes mellitus with foot ulcer[ICD10: E11.621] Diagnosis: Essential (primary) hypertension[ICD10: I10] Diagnosis: Gastro-esophageal reflux disease without esophagitis[ICD10: K21.9] Marcela Ha MD, [facility] CPT-4: 84763 01/29/2018 00347 EST. PATIENT, LEVEL III Diagnosis: Other malaise[ICD10: R53.81] Diagnosis: Other fatigue[ICD10: R53.83] Diagnosis: Pain in right shoulder[ICD10: M25.511] Diagnosis: Pain in left shoulder[ICD10: M25.512] Madeline Ha MD, [facility] CPT-4: 68255 08/27/2017 ([id number]) 52069 EST. PATIENT, LEVEL IV Diagnosis: Essential (primary) hypertension[ICD10: I10] Diagnosis: Type 2 diabetes mellitus with hyperglycemia[ICD10: E11.65] Diagnosis: VACCIN FOR INFLUENZA[ICD10: Z23] Melida Ha MD [facility] CPT-4: 23690 08/16/2017 38012 EST. PATIENT, LEVEL III Diagnosis: Zoster without complications[ICD10: B02.9] Madeline Ha MD [facility] CPT-4: 93348 07/26/2017 ([id number]) 18806 EST. PATIENT, LEVEL III Diagnosis: Cellulitis of right lower limb[ICD10: L03.115] Marcela Ha MD [facility] CPT-4: 93934 07/03/2017 70672 EST. PATIENT, LEVEL II Diagnosis: Laceration without foreign body of left forearm, initial encounter[ ICD10: S51.812A] Marcela Ha MD [facility] CPT-4: 47240 06/29/2017 ([id number]) 69044 EST. PATIENT, LEVEL III Diagnosis: Cellulitis of right lower limb[ICD10: L03.115] Diagnosis: Type 2 diabetes mellitus with foot ulcer[ICD10: E11.621] Marcela Ha MD [facility] CPT-4: 93496 06/18/2017 ([id number]) 26497 EST. PATIENT, LEVEL IV Diagnosis: Cellulitis of right lower limb[ICD10: L03.115] Diagnosis: Acute laryngopharyngitis[ICD10: J06.0] Diagnosis: Gastro-esophageal reflux disease without esophagitis[ICD10: K21.9] Marcela Ha MD [facility] CPT-4: 69459 06/07/2017 ([id number]) 05484 EST. PATIENT, LEVEL III Diagnosis: Type 2 diabetes mellitus with hyperglycemia[ICD10: E11.65] Diagnosis: Insect bite (nonvenomous) of abdominal wall, initial encounter[ICD10 : S30.861A] Marcela Ha MD, [facility] CPT-4: 59200 05/17/2017 ([id number]) 41857 EST. PATIENT, LEVEL III Diagnosis: Allergic contact dermatitis due to plants, except food[ICD10: L23.7] Melida Ha MD, [facility] CPT-4: 56375 05/04/2017 ([id number]) 71511 EST. PATIENT, LEVEL III Diagnosis: Essential (primary) hypertension[ICD10: I10] Marcela Ha MD [facility] CPT-4: 86766 03/15/2017 ([id number]) 84676 EST. PATIENT, LEVEL III Diagnosis: Cough[ICD10: R05] Diagnosis: Essential (primary) hypertension[ICD10: I10] Marcela Ha MD [facility] CPT-4: 93656 03/01/2017 ([id number]) 11355 EST. PATIENT, LEVEL III Diagnosis: Cough[ICD10: R05] Diagnosis: Nasal congestion[ICD10: R09.81] Diagnosis: Acute recurrent maxillary sinusitis[ICD10: J01.01] Marcela Ha MD [facility] CPT-4: 79753 02/16/2017 ([id number]) 13005 EST. PATIENT, LEVEL III Diagnosis: Type 2 diabetes mellitus with hyperglycemia[ICD10: E11.65] Marcela Ha MD [facility] CPT-4: 83456 02/12/2017 ([id number]) 67150 EST. PATIENT, LEVEL IV Diagnosis: Type 2 diabetes mellitus with hyperglycemia[ICD10: E11.65] Diagnosis: Muscle weakness (generalized)[ICD10: M62.81] Diagnosis: Disorientation, unspecified[ICD10: R41.0] Marcela Ha MD [facility] CPT-4: 10894 02/05/2017 ([id number]) Patient admitted to the hospital from clinic (NO CHARGE) Diagnosis: Type 2 diabetes mellitus with hyperglycemia[ICD10: E11.65] Diagnosis: Disorientation, unspecified[ICD10: R41.0] Diagnosis: Muscle weakness (generalized)[ICD10: M62.81] Marcela Ha MD [facility] CPT-4: 25836W 01/29/2017 ([id number]) Miscellaneous no charge Diagnosis: Cellulitis of right lower limb[ICD10: L03.115] Marcela Ha MD [facility] CPT-4: 50007 10/13/2016 ([id number]) Miscellaneous no charge Diagnosis: Type 2 diabetes mellitus with foot ulcer[ICD10: E11.621] Diagnosis: Pain in right foot[ICD10: M79.671] Marcela Ha MD [facility] CPT-4: 09593 10/09/2016 53927 EST. PATIENT, LEVEL II Diagnosis: Cellulitis of right lower limb[ICD10: L03.115] Marcela Ha MD, [facility] CPT-4: 35620 10/06/2016 ([id number]) 69256 EST. PATIENT, LEVEL IV Diagnosis: Low back pain[ICD10: M54.5] Diagnosis: Other deformities of toe(s) (acquired), left foot[ICD10: M20.5X2] Diagnosis: Type 2 diabetes mellitus with foot ulcer[ICD10: E11.621] Marcela Ha MD , [facility] CPT-4: 62778 07/18/2016 ([id number]) 25523 EST. PATIENT, LEVEL III Diagnosis: Type 2 diabetes mellitus with hyperglycemia[ICD10: E11.65] Marcela Ha MD, [facility] CPT-4: 00364 06/22/2016 ([id number]) 73915 EST. PATIENT, LEVEL IV Diagnosis: Type 2 diabetes mellitus with hyperglycemia[ICD10: E11.65] Diagnosis: Mixed hyperlipidemia[ICD10: E78.2] Diagnosis: Other hemoglobinopathies[ICD10: D58.2] Marcela Ha MD, [facility] CPT-4: 94570 05/23/2016 ([id number]) 33638 EST. PATIENT, LEVEL IV Diagnosis: Type 2 diabetes mellitus with other specified complication[ICD10: E11.69] Diagnosis: Dehydration[ICD10: E86.0] Marcela Ha MD, [facility] CPT-4: 28407 05/15/2016 ([id number]) OFFICE VISIT, NEW - LEVEL 3 Diagnosis: Allergic contact dermatitis due to plants, except food[ICD10: L23.7] Madeline Ha MD, [facility] CPT-4: 75975 01/20/2016 Plan of Care Planned Activity Notes [...] Oshea WPtel: [facility]5 [phone] (30 min) Complex 11/12/2018 Patient Education: Patient Medication Summary Completed 11/12/2018 Patient Education: Symbicort - 18-64 - eCopay Completed 11/12/2018 Care Plan: Referral Order SNOMED-CT : [id number] Pending 11/12/2018 Care Plan: Culture Sputum Pending 11/12/2018 Referral: Niko Mantilla Referral Completed 11/04/2018 Visit Plan: Pneumonia, cough - recent diagnosis of Moraxella Cattharalis - with sensitivity to levaquin - will give 2 wks of levaquin since he had improvement but no full resolution of symptoms. 10/30/2018 Appointment: Melida Ha WPtel: [address] [place], [place] [address] 30 min appointments only in this slot 10/30/2018 Patient Education: Patient Medication Summary Completed 10/30/2018 Visit Plan: Right hand-joint pain and swelling -negative for gout -treated for cellulitis right 2nd mcp joint -now having difficulty with long finger "locking" -Dr Ha in to evaluate patient and tape index and long finger in place-refer to Dr Mantilla for evaluation 10/24/2018 Appointment: Marcela Oshea WPtel: [facility]9 [phone] (30 min) Complex 10/24/2018 Patient Education: Patient Medication Summary Completed 10/24/2018 Care Plan: Referral Order SNOMED-CT : [id number] Pending 10/24/2018 Visit Plan: Hypotension - discussed [...] less controlled. 10/23/2018 Appointment: Melida Ha WPtel: [facility] (15 min) Moderate 10/23/2018 Patient Education: Patient [...] patient to see specialist this afternoon 10/21/2018 Appointment: Marcela Oshea WPtel: [address] [place], [place] [phone] (30 min) Complex 10/21/2018 Patient Education: Patient [...] warmth, discharge. 10/17/2018 Appointment: Madeline Kennedy WPtel: [address] [place] [address] (15 min) Moderate 10/17/2018 Patient Education: Patient [...] acutely worsen. 10/14/2018 Appointment: Marcela Oshea WPtel: [address] [place], [place] [phone] (15 min) Moderate 10/14/2018 Patient Education: Patient Medication Summary Completed 10/14/2018 Care Plan: CHEST X-RAY 2VW FRONTAL&LATL LOINC : 28775-5 Pending 10/14/2018 Visit Plan: URI - Pt [...] allergy spray. 09/30/2018 Appointment: Madeline Kennedy WPtel: [address] [place], [place] [phone] (15 min) Moderate 09/30/2018 Patient [...] Hgb A1C 09/09/2018 Appointment: Marcela Oshea WPtel: [address] [place], [place] [phone] (15 min) Moderate 09/09/2018 Patient Education: Patient Medication Summary Completed 09/09/2018 Patient Education: Patient Medication Summary Completed 09/06/2018 Patient Education: Cholesterol Management Completed 09/06/2018 Care Plan: Comp Metabolic Pending 09/06/2018 Care Plan: Cbc With Differential Pending 09/06/2018 Care Plan: %Hba1C LOINC : 24753-7 Pending 09/06/2018 Care Plan: Tsh Pending 09/06/2018 Care Plan: Lipid Pending 09/06/2018 Appointment: Marcela Oshea WPtel: [address] [place], [place] [phone] (15 min) Moderate 08/26/2018 Appointment: Marcela Oshea WPtel: [address] [place], [place] [phone] (15 min) Moderate 08/23/2018 Visit Plan: Hypertension [...] in clinic. 07/22/2018 Appointment: Melida Ha WPtel: [phone] [facility] (15 min) Moderate 07/22/2018 Patient Education: Patient [...] insomnia. 07/16/2018 Appointment: [phone] (30 min) Complex 07/16/2018 Patient Education: Patient Medication Summary Completed 07/16/2018 Visit Plan: cough - improved - notify clinic if symptoms do not completely resolve, or with any questions or concerns. 07/01/2018 Appointment: Madeline Kennedy WPtel: [phone] [facility] [place] (15 min) Moderate 07/01/2018 Patient Education: [...] spray. 06/28/2018 Appointment: Madeline Kennedy [facility]Ptel[facility] [phone] [facility] (15 min) Moderate 06/28/2018 Patient Education: [...] [facility] (15 min) Moderate 06/18/2018 Patient Education: Patient [...] allow for greater blood glucose control. Joint ooks-mcbaevpr-ypcpegx- symptoms have improved -stop meloxicam due to upset stomach-call if symptoms return 05/13/2018 Appointment: Marcela Oshea WPtel: [phone] [phone] (30 min) Complex 05/13/2018 Patient Education: Patient Medication Summary Completed 05/13/2018 Visit Plan: Bilateral hip xdbl-nmuxruwq-gybswir IM injection administered today for c/o continued myalgia/arthralgia. Patient to start taking Meloxicam 15mg PO daily. Advised to return to clinic if symptoms do not improve. 05/02/2018 Appointment: Marcela Oshea WPtel: [address] [place] [address] (30 min) Complex 05/02/2018 Patient Education: Patient [...] readings at home. Diabetes Mellitus -check labs Scrjuxxo-bekszjp-loan bite-rx for doxycycline-follow up in 2 weeks 04/29/2018 Appointment: Marcela Oshea WPtel: [facility]5 [facility] [place] [address] (15 min) Moderate 04/29/2018 Patient Education: Patient Medication Summary Completed 04/29/2018 Appointment: Melida Ha WPtel: [facility]5 [facility] (15 min) Moderate 04/15/2018 Appointment: Marcela Oshea WPtel: [address] [place] [address] (30 min) Complex 03/21/2018 Visit Plan: Hypertension [...] cymbalta 03/13/2018 Appointment: Melida Ha WPtel: [phone] [facility] (30 min) Complex 03/13/2018 Patient Education: Patient Medication Summary Completed 03/13/2018 Visit Plan: DM-continue same medications-monitor blood sugars routinely as directed -rx for new glucometer and test strips provided Bipolar-currently depressed-patient start on vraylar-follow up in 2 weeks, sooner if needed. Patient and verbalied understanding of plan. Hypotension- stay off losartan 03/07/2018 Appointment: Marcela Oshea WPtel: [phone] [phone] [place] (30 min) Complex 03/07/2018 Patient Education: Patient Medication Summary Completed 03/07/2018 Appointment: Melida Ha WPtel: [phone] [facility] [place] (15 min) Moderate 03/04/2018 Visit Plan: [...] Marcela Oshea WPtel: [phone] [phone] [place] (30 min) Complex 02/28/2018 Patient [...] improving. 02/13/2018 Appointment: Madeline Kennedy [facility]Ptel: [phone] [facility] [place] (15 min) Moderate 02/13/2018 Patient Education: Patient Medication Summary Completed 02/13/2018 Referral: Sun Glynn Patient informed. Referral info faxed. Completed Visit Plan: DM-weight loss-not checking blood sugars- patient sent for labs today HTN-low rlvbv-xxuneyo-qrkci labs Callus of foot and fissue of heel-refer to Dr Glynn for evaluation Esophageal Reflux - the patient has been counseled against excessive intake of caffeine, spicy foods, peppermint , and cinnamon - all of which can exacerbate esophageal reflux. The patient is to take medications as prescribed and call the office if the symptoms are not improving. 01/29/2018 Appointment: [phone] [place] (30 min) Complex 01/29/2018 Patient Education: Patient Medication Summary Completed 01/29/2018 Care Plan: Comp Metabolic Cancelled 01/29/2018 Care Plan: Cbc With Differential Cancelled 01/29/2018 Care Plan: %Hba1C LOINC : 72218-4 Cancelled 01/29/2018 Care Plan: Referral Order SNOMED-CT : [id number] Cancelled 01/29/2018 Visit Plan: Fatigue, malaise, joint [...] concerns. 08/27/2017 Appointment: Madeline Kennedy WPtel: [phone] [facility] (15 min) Moderate 08/27/2017 Patient [...] Ha WPtel: [phone] [facility] (30 min) Complex 08/16/2017 Patient Education: Patient Medication Summary Completed 08/16/2017 Patient Education: Obesity Completed 08/16/2017 Appointment: Madeline Kennedy WPtel: [facility]7 [facility] (30 min) Complex 08/07/2017 [...] contagious. 07/26/2017 Appointment: Madeline Kennedy WPtel: [phone] [facility] (15 min) Moderate 07/26/2017 Patient Education: Patient Medication Summary Completed 07/26/2017 Visit Plan: Cellulitis right foot-cultured today in the office-home health to reapply wound vac--appt with wound care on to evaluate for debridement- 07/03/2017 Appointment: Marcela Oshea WPtel: [facility]7 [address] (30 min) Complex 07/03/2017 Patient Education: Patient Medication Summary Completed 07/03/2017 Visit Plan: Abrasion left arm - Pt was instructed to keep the wound clean, wash with antibacterial soap, use triple antibiotic ointment, call if redness, pustular drainage, or any other acute concerns. 06/29/2017 Appointment: Marcela Oshea WPtel: [facility]2 [address] (15 min) Moderate 06/29/2017 Patient Education: [...] of plan. 06/18/2017 Appointment: Marcela Oshea WPtel: [facility]8 [address] (15 min) Moderate 06/18/2017 Patient Education: Patient [...] low fat diet-start prilosec 06/07/2017 Appointment: Marcela Osheal: [phone] (10 min) Simple 06/07/2017 Patient Education: [...] Oshea WPtel: [facility]5 [phone] (30 min) Complex 05/17/2017 [...] if you want blue minesh called into [facility]. 05/04/2017 Appointment: Marcela Oshea WPtel: [phone] (30 min) Complex 05/04/2017 Patient Education: [...] Oshea WPtel: [facility]5 [phone] (30 min) Complex 03/12/2017 Visit [...] as discussed 02/16/2017 Appointment: Marcela Oshea WPtel: [address] [place], [place] [phone] (15 min) Moderate 02/16/2017 Patient Education: Patient [...] less controlled. 02/12/2017 Appointment: Marcela Oshea WPtel: [address] [place], [place] [phone] [place] (30 min) Complex 02/12/2017 Patient Education: Patient Medication Summary Completed 02/12/2017 Appointment: Marcela Oshea WPtel: [address] [place], [place] [phone] (30 min) Complex 02/06/2017 Visit Plan: Diabetes [...] will consider 02/05/2017 Appointment: Marcela Oshea WPtel: [address] [place], [place] [phone] (30 min) Complex 02/05/2017 Patient Education: Patient Medication Summary Completed 02/05/2017 Appointment: Marcela Oshea WPtel: [address] [place], [place] [phone] (30 min) Complex 01/30/2017 Visit Plan: Acute confusion-uncontrolled diabetes- chronically noncompliant with treatment and stopped his insulin several months ago-r/o stroke vs DKA-Dr Ha in to evaluate patient-plan to admit for further work up and treatment-patient's called and she transported him to the hospital 01/29/2017 Appointment: Marcela Oshea WPtel: [address] [place], [place] [phone] [place] (30 min) Complex 01/29/2017 Patient Education: Patient Medication Summary Completed 01/29/2017 Patient Education: Obesity Completed 01/29/2017 Visit Plan: Right foot pain-MRI shows foreign body-appt with Dr Grewal for evaluation on Sunday. 10/13/2016 Appointment: Marcela Oshea WPtel: [address] [place], [place] [phone] [place] (15 min) Moderate 10/13/2016 Patient Education: Patient Medication Summary Completed 10/13/2016 Appointment: Marcela Oshea WPtel: [address] [place], [place] [phone] [place] (30 min) Complex 10/12/2016 Visit Plan: Right foot jrvz-jgvdajxg-fdtte washer dropped on foot-xray negative but pain continues to increase-recommend MRI of foot for further evaluation-refer to wound care for lesions on right foot, patient has diabetes and history of osteomyelitis-culture obtained today-continue oral abx- follow up in the office on , sooner if needed 10/09/2016 Visit Plan: Right foot gier-zrfdmdox-abnnj washer dropped on foot-xray negative but pain continues to increase-recommend MRI of foot for further evaluation-refer to wound care for lesions on right foot, patient has diabetes and history of osteomyelitis-culture obtained today-continue oral abx- follow up in the office on , sooner if needed 10/09/2016 Visit Plan: Right foot owjs-dstcbrwk-kxlxo washer dropped on foot-xray negative but pain continues to increase-recommend MRI of foot for further evaluation-refer to wound care for lesions on right foot, patient has diabetes and history of osteomyelitis-culture obtained today-continue oral abx- follow up in the office on , sooner if needed 10/09/2016 Appointment: Marcela Oshea WPtel: [address] [place] [address] (30 min) Complex 10/09/2016 Patient Education: Patient Medication Summary Completed 10/09/2016 Visit Plan: Cellulitis - continue with oral antibiotics as previously directed, return to clinic as previously directed, call for acute change in symptoms, worsening redness, warmth, discharge. 10/06/2016 Appointment: Marcela Oshea WPtel: [address] [place], [place] [phone] (10 min) Simple 10/06/2016 Patient Education: Patient Medication Summary Completed 10/06/2016 Appointment: Marcela Oshea WPtel: [address] [place], [place] [phone] (30 min) Complex 08/24/2016 Referral: Sun Glynn Referral Completed 07/21/2016 Visit Plan: Low back pain- history of spinal fusion- patient for xray lumbar spine-RX sent to [facility] pharmacy and instructed on use-topical voltaren samples provided and instructed on use. Ok to use tylenol as needed as well. The patient is to call the office if the pain is worsening or does not improve. Pressure ulcer left 4th toe-refer to Dr Glynn for evaluation 07/18/2016 Appointment: Marcela Oshea WPtel: [phone] [phone] (30 min) Complex 07/18/2016 Patient Education: Patient Medication Summary Completed 07/18/2016 Patient Education: Obesity Completed 07/18/2016 Care Plan: Referral Order SNOMED-CT : [id number] Cancelled 07/18/2016 Visit Plan: Diabetes Mellitus - [...] control. 06/22/2016 Appointment: Marcela Oshea WPtel: [phone] [phone] (30 min) Complex 06/22/2016 Patient Education: [...] today 05/23/2016 Appointment: Marcela Oshea WPtel: [phone] [phone] (30 min) Complex 05/23/2016 Patient Education: [...] plan. 05/15/2016 Appointment: Marcela Oshea WPtel: [phone] [phone] (15 min) Moderate 05/15/2016 Patient Education: [...] Sun Glynn Referral Appointment Requested Instructions Comment steroid shot today flonase and mucinex over [...] increase in pain, worsening redness, warmth, discharge. sputum culture chest xray levaquin 500mg daily . Bronchitis - acute case of bronchitis identified. Pt has been given antibiotics, breathing treatments as appropriate, and pt has been instructed to call if symptoms are not improved, or if symptoms acutely worsen. . Pneumonia, cough - recent diagnosis of Moraxella Cattharalis - with sensitivity to levaquin - will give 2 wks of levaquin since he had improvement but no full resolution of symptoms. steroid shot today flonase and mucinex over [...] in the nasal steroid allergy spray. . Right hand-joint pain and swelling -negative for gout - treated for cellulitis right 2nd mcp joint -now having difficulty with long finger "locking" -Dr Ha in to evaluate patient and tape index and long finger in place-refer to Dr Mantilla for evaluation . Diabetes Mellitus - controlled - per [...] with Dr Grewal for evaluation on Sunday. continue oral antibiotic start using topical antibiotic ointment to scabbed areas and cover with dressing follow up , sooner if needed refer to wound care mri left foot due to increased pain -concern for fracture from injury . Right foot swib-ydmyfyzh-dahnk washer dropped on foot-xray negative but pain [...] controlled. check HgbA1c flu shot today - STOP MELOXICAM CONTINUE LYRICA 50 UNITS TOUJEO [...] allow for greater blood glucose control. Joint desv-zhbufyta-hwgqlsf-symptoms have improved -stop meloxicam due to upset stomach-call if symptoms return . Abrasion left arm - Pt was instructed to keep the wound clean, wash with antibacterial soap, use triple antibiotic ointment, call if redness, pustular drainage, or any other acute concerns. 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 Low back pain- history of spinal fusion-patient for xray lumbar spine-RX sent to [facility] pharmacy and instructed on use-topical voltaren samples provided and instructed on use. Ok to use tylenol as needed as well. The patient is to call the office if the pain is worsening or does not improve. Pressure ulcer left 4th toe-refer to Dr Glynn for evaluation . Poison Jana - pt is to use topical treatments as directed. Pt is cleanse clothing in hot water with soap, and call if symptoms do not improve or if they worsen. Kenalog injection today in the office-monitor blood sugars closely over the next 2-3 days-use calamine as directed-call if you want blue goo called into [facility]. culture of right foot strep swab prilosec over the counter twice daily keflex 500mg three times daily x 7 days . Cellulitis - culture of wound today-start abx and directed, call for acute change in symptoms, worsening redness, warmth, discharge. Sore throat-strep swab-chloraseptic spray-add prilosec twice daily for acid reflux symptoms GERD-low spice, low fat diet-start prilosec REPEAT LABS BEFORE YOUR NEXT APPOINTMENT IN [...] - stop Vraylar and start on cymbalta sputum culture chest xray levaquin 500mg daily . Bronchitis - acute case of bronchitis identified. Pt has been given antibiotics, breathing treatments as appropriate, and pt has been instructed to call if symptoms are not improved, or if symptoms acutely worsen. . Insomnia - Pt has been advised to increase the light in the house during the day, and start dimming the lights during the evening hours. Pt has been advised to cut out caffeine after 5pm. Daytime napping worsens night time insomnia. REPEAT CBC Toujeo 10 units daily . [...] glucose control. Elevated Hgb-check CBC today . DM-weight loss-not checking blood sugars-patient sent for labs today HTN-low cyrtd-zujiryi-ifyka labs Callus of foot and fissue of [...] readings are starting to become less controlled. Smvdpuacq-rhoymxsv-lffzjwom to monitor Generalized weakness-refer for PT-patient refuses today but will consider continue oral antibiotic start using topical antibiotic ointment to scabbed areas and cover with dressing follow up , sooner if needed refer to wound care mri left foot due to increased pain -concern for fracture from injury . Right foot ufeo-wizwnhoo-rhoht washer dropped on foot-xray negative but pain continues to increase-recommend MRI of foot for further evaluation-refer to wound care for lesions on right foot, patient has diabetes and history of osteomyelitis-culture obtained today-continue oral abx-follow up in the office on , sooner if needed doxycycline 100mg twice daily follow up in 2 weeks, sooner if needed . Hypertension - well controlled - continue with current medications, continue with no added salt diet. Pt has been encouraged to exercise daily. The pt has been advised to call the office if there are any acute concerns about change in blood pressure readings at home. Diabetes Mellitus -check labs Pxwtfndt-jostwex-lsyw bite-rx for doxycycline-follow up in 2 weeks continue oral antibiotic start using topical antibiotic ointment to scabbed areas and cover with dressing follow up , sooner if needed refer to wound care mri left foot due to increased pain -concern for fracture from injury . Right foot aupo-efojzwuq-xysoa washer dropped on foot-xray negative but pain [...] understanding of plan. Hypotension-stay off losartan . Shingles - Herpes Zoster - acute [...] symptoms are not improving. . Bilateral hip mdjw-gvolprep-eintqyw IM injection administered today for c/o continued myalgia/arthralgia. Patient to start taking Meloxicam 15mg PO daily. Advised to return to clinic if symptoms do not improve. INCREASE FLUIDS-RECOMMEND G2 GATORADE-CHECK LABS TODAY IF [...] physical exam, and the assessment and plan. CT Chest sputum culture symbicort 2 [...] a bronchoscopy. Patient verbalized understanding of plan. DOXYCYCLINE 100MG [...] exam, and the assessment and plan. . Fatigue, malaise, joint pains - [...] ulcer- patient to see specialist this afternoon breathing treatments 3 times a day x [...]
--- OUTSIDE RECORDS SUMMARY | 2019-01-01 14:34 | XMS REPORT | CCD ---
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 Name Role Phone PP Unavailable CCM Unavailable Summary Purpose Interface Exchange Insurance Providers Payer name Policy type / Coverage type Covered republican ID Effective Begin Date Effective End Date Blue Cross Blue Shield [facility] Blue Cross/Blue Shield [id number] Unknown Family history Father Diagnosis Age At Onset Hyperlipidemia Unknown Heart Attack Unknown Mother Diagnosis Age At Onset Hypertension Unknown Social History Social History Element Codes Description Effective Dates Marital status Unknown Mignon 01/20/2016 Number of children Unknown 4 01/20/2016 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/[address]: 497518357 Never smoker 01/20/[address]: 831955105 Never drinks alcohol 01/20/2016 Allergies, Adverse Reactions, [...] Start Date Stop Date Status Fill Instructions Symbicort 160 mcg-4.5 mcg/actuation HFA aerosol inhaler RxNorm: 3169963 2 Puff(s) INH BID 11/12/2018 12/11/2018 Active albuterol sulfate 2.5 mg/3 mL (0.083 %) solution for nebulization RxNorm: 392880 3 Milliliter(s) INH UD 11/07/2018 No Stop Date Active azithromycin 500 mg tablet RxNorm: 315011 500mg on day 1 then 250 mg daily x 4 more day Tablet(s) PO 11/07/20182018 Inactive 500mg on day 1 and then 250mg daily 2-4 cefdinir 300 mg capsule RxNorm: 751157 1 Capsule(s) PO BID 01/201911/13/2018 Active azithromycin 500 mg tablet RxNorm: 238380 500mg on day 1 then 250 mg daily x 4 more day Tablet(s) PO 11/07/20182018 Inactive 500mg on day 1 and then 250mg daily 2-4 cefdinir 300 mg capsule RxNorm: 447267 1 Capsule(s) PO BID 01/201911/06/2018 Inactive Levaquin 500 mg tablet RxNorm: 025102 1 Tablet(s) PO daily TAKE ONE TABLET BY MOUTH DAILY UNTIL GONE 10/31/20182018 Active Levaquin 500 mg tablet RxNorm: 131244 1 Tablet(s) PO daily 11/12/2018 Inactive valsartan 80 mg tablet RxNorm: 137183 1/2 Tablet(s) PO daily 04/20/2019 Active doxycycline hyclate 100 mg tablet RxNorm: 5415535 1 Tablet(s) PO BID 10/21/2018 10/27/2018 Inactive ketorolac 60 mg/2 mL intramuscular solution RxNorm: 6974988 Milliliter(s) IM 10/21/2018 10/21/2018 Inactive Levaquin 500 mg tablet RxNorm: 665670 1 Tablet(s) PO daily 10/31/2018 Inactive Tessalon Perles 100 mg capsule RxNorm: 285997 1-2 Capsule(s) PO TID PRN 10/14/2018 No Stop Date Active albuterol sulfate 2.5 mg/3 mL (0.083 %) solution for nebulization RxNorm: 340339 3 Milliliter(s) INH UD 10/14/201812/2018 Inactive Levaquin 500 mg tablet RxNorm: 710702 1 Tablet(s) PO daily 08/201810/16/2018 Inactive Coreg 6.25 mg tablet RxNorm: 645975 TAKE ONE TABLET BY MOUTH TWICE A DAY 09/30/2018 03/28/2019 Active albuterol sulfate 2.5 mg/3 mL (0.083 %) solution for nebulization RxNorm: 438328 3 Milliliter(s) INH UD 09/30/201807/2018 Inactive Kenalog 40 mg/mL suspension for injection RxNorm: 0516114 1.5 Milliliter(s) Inj 09/30/2018 09/30/2018 Inactive Keflex 500 mg capsule RxNorm: 091070 1 Capsule(s) PO TID 201710/03/2018 Inactive prednisone 20 mg tablet RxNorm: 523117 2 Tablet(s) PO daily 09/29/2018 Inactive Kenalog 40 mg/mL suspension for injection RxNorm: 3404080 Milliliter(s) Inj 09/11/2018 09/11/2018 Inactive Zyrtec 10 mg tablet RxNorm: 2080343 1 Tablet(s) PO daily 09/0910/08/2018 Inactive Keflex 500 mg capsule RxNorm: 814806 1 Capsule(s) PO TID 201709/15/2018 Inactive Tresiba FlexTouch U-200 insulin 200 unit/mL (3 mL) subcutaneous pen RxNorm: 8661701 50 Unit(s) SQ daily 08/30/2018 08/29/2018 Inactive please give him 30 day supply Tresiba FlexTouch U-200 insulin 200 unit/mL (3 mL) subcutaneous pen RxNorm: 0010111 50 Unit(s) SQ daily 08/30/2018 09/28/2018 Inactive please give him 30 day supply Novolog Flexpen U-100 Insulin aspart 100 unit/mL subcutaneous RxNorm: 3464263 8 Unit(s) SQ AC 08/13/2018 No Stop Date Active Novolog Flexpen U-100 Insulin aspart 100 unit/mL subcutaneous RxNorm: 9386552 8 Unit(s) SQ AC 07/22/20182017 Inactive this is an update on his medication Novolog Flexpen U-100 Insulin aspart 100 unit/mL subcutaneous RxNorm: 7566149 12 Unit(s) SQ AC 07/05/20182017 Inactive this is an update on his medication Toujeo SoloStar U-300 Insulin 300 unit/mL (1.5 mL) subcutaneous pen RxNorm: 3083951 INJECT 50 UNITS UNDER THE SKIN DAILY 07/01/2018 08/29/2018 Inactive Mucinex 600 mg tablet, extended release RxNorm: 106077 1 Tablet(s) PO BID 06/28/2018 07/04/2018 Inactive Zofran 4 mg tablet RxNorm: 301118 1 Tablet(s) PO TID as needed nausea 06/28/2018 07/02/2018 Inactive Kenalog 40 mg/mL suspension for injection RxNorm: 1577670 Milliliter(s) Inj 06/28/2018 06/28/2018 Inactive Flonase Allergy Relief 50 mcg/actuation nasal spray, suspension RxNorm: 1874046 1 [place] NASAL BID 06/28/20182017 Inactive Lyrica 50 mg capsule RxNorm: 804629 Capsule(s) PO daily 201707/07/2018 Inactive Novolog Flexpen U-100 Insulin aspart 100 unit/mL subcutaneous RxNorm: 8077040 10 Unit(s) SQ AC 06/18/20182017 Inactive this is an update on his medication Lasix 20 mg tablet RxNorm: 154567 1 Tablet(s) PO BIW 201707/02/2018 Inactive atorvastatin 80 mg tablet RxNorm: 936576 1 Tablet(s) PO QHS 04/201812/06/2018 Active clonazepam 1 mg tablet RxNorm: 982224 2 Tablet(s) PO HS 201706/04/2019 Active clonazepam 1 mg tablet RxNorm: 123072 2 Tablet(s) PO HS as needed 06/10/2018 06/09/2018 Inactive Lyrica 50 mg capsule RxNorm: 279715 Capsule(s) PO daily 201707/08/2018 Inactive Lasix 20 mg tablet RxNorm: 995471 1 Tablet(s) PO TIW 201706/11/2018 Inactive Toujeo SoloStar U-300 Insulin 300 unit/mL (1.5 mL) subcutaneous pen RxNorm: 8142919 50 Unit(s) SQ daily 05/07/2018 06/30/2018 Inactive meloxicam 15 mg tablet RxNorm: 620763 15 Milligram(s) PO daily 05/02/2018 05/12/2018 Inactive ketorolac 30 mg/mL injection solution RxNorm: 710236 2 Milliliter(s) Inj 05/02/2018 05/02/2018 Inactive Toujeo SoloStar U-300 Insulin 300 unit/mL (1.5 mL) subcutaneous pen RxNorm: 6315097 45 Unit(s) daily 04/29/2018 Inactive clonazepam 1 mg tablet RxNorm: 285948 1 Tablet(s) PO Q8 as needed 04/29/2018 06/09/2018 Inactive doxycycline hyclate 100 mg tablet RxNorm: 7333318 1 Tablet(s) PO BID 04/29/2018 05/12/2018 Inactive Cymbalta 30 mg capsule,delayed release RxNorm: 212288 1 Capsule(s) PO QAM 03/13/2018 10/08/2018 Inactive Lexapro 10 mg tablet RxNorm: 067797 1 Tablet(s) PO QPM 201703/03/2018 Inactive Toujeo SoloStar U-300 Insulin 300 unit/mL (1.5 mL) subcutaneous pen RxNorm: 0016773 20 Unit(s) daily 02/28/2018 Inactive Protonix 40 mg tablet,delayed release RxNorm: 293120 1 Tablet(s) PO daily 01/29/2018 06/09/2018 Inactive clonazepam 1 mg tablet RxNorm: 298025 1 Tablet(s) PO Q8 as needed 12/12/2017 03/10/2018 Inactive Tamiflu 75 mg capsule RxNorm: 355032 1 Capsule(s) PO BID 201712/03/2017 Inactive doxycycline hyclate 100 mg capsule RxNorm: 5155772 1 Capsule(s) PO BID 09/07/2017 09/20/2017 Inactive doxycycline hyclate 100 mg capsule RxNorm: 2455054 1 Capsule(s) PO BID 08/27/2017 09/06/2017 Inactive prednisone 20 mg tablet RxNorm: 728992 2 Tablet(s) PO daily 08/31/2017 Inactive clopidogrel 75 mg tablet RxNorm: 629572 1 Tablet(s) PO daily 06/09/2018 Inactive atorvastatin 40 mg tablet RxNorm: 555129 1 Tablet(s) PO QHS 02/27/2018 Inactive losartan 25 mg tablet RxNorm: 137292 TAKE ONE TABLET BY MOUTH DAILY 08/22/2017 06/09/2018 Inactive Toujeo SoloStar 300 unit/mL (1.5 mL) subcutaneous insulin pen RxNorm: 2489958 45 Unit(s) daily 08/17/2017 08/20/2017 Inactive mupirocin 2 % topical ointment RxNorm: 673787 1 Application TOP TID to the lesions on chest 08/16/2017 08/25/2017 Inactive Toujeo SoloStar 300 unit/mL (1.5 mL) subcutaneous insulin pen RxNorm: 1078839 40 Unit(s) daily 08/16/2017 08/16/2017 Inactive valacyclovir 1 gram tablet RxNorm: 955729 1 Tablet(s) PO TID 08/01/2017 Inactive clonazepam 1 mg tablet RxNorm: 681630 1 Tablet(s) PO Q8 as needed 07/03/2017 09/30/2017 Inactive Levaquin 500 mg tablet RxNorm: 940163 1 Tablet(s) PO daily 06/25/2017 Inactive Levaquin 500 mg tablet RxNorm: 056624 1 Tablet(s) PO daily 06/21/2017 Inactive losartan 25 mg tablet RxNorm: 474128 1 Tablet(s) PO daily 201608/16/2017 Inactive nystatin 100,000 unit/mL oral suspension RxNorm: 254752 5 Milliliter(s) PO QID Swish et swallow 06/18/2017 06/17/2017 Inactive nystatin 100,000 unit/mL oral suspension RxNorm: 945991 5 Milliliter(s) PO QID Swish et swallow 06/18/2017 06/27/2017 Inactive Cipro 500 mg tablet RxNorm: 785528 1 Tablet(s) PO BID 201606/18/2017 Inactive Cipro 500 mg tablet RxNorm: 728064 1 Tablet(s) PO BID 201606/11/2017 Inactive Toujeo SoloStar 300 unit/mL (1.5 mL) subcutaneous insulin pen RxNorm: 1521372 INJECT 10 UNITS UNDER THE SKIN DAILY 06/12/2017 08/15/2017 Inactive Keflex 500 mg capsule RxNorm: 115295 1 Capsule(s) PO TID 201606/13/2017 Inactive doxycycline hyclate 100 mg capsule RxNorm: 1493176 1 Capsule(s) PO BID 05/17/2017 05/21/2017 Inactive doxycycline hyclate 100 mg capsule RxNorm: 1964611 1 Capsule(s) PO BID 05/11/2017 05/16/2017 Inactive losartan 25 mg tablet RxNorm: 208684 1 Tablet(s) PO daily 201606/17/2017 Inactive atorvastatin 40 mg tablet RxNorm: 987399 1 Tablet(s) PO daily 03/01/2017 08/23/2017 Inactive clopidogrel 75 mg tablet RxNorm: 299706 1 Tablet(s) PO daily 08/23/2017 Inactive Flonase Allergy Relief 50 mcg/actuation nasal spray, suspension RxNorm: 5796367 2 [place] NASAL daily 02/16/20172016 Inactive Augmentin 875 mg-125 mg tablet RxNorm: 102120 1 Tablet(s) PO BID 02/16/2017 02/22/2017 Inactive GET PROBIOTIC TO TAKE WHILE ON ABX Tamiflu 75 mg capsule RxNorm: 099855 1 Capsule(s) PO BID 201602/20/2017 Inactive ceftriaxone 500 mg solution for injection RxNorm: 3489260 1 Milliliter(s) Inj 02/16/2017 02/16/2017 Inactive Kenalog 40 mg/mL suspension for injection RxNorm: 0658596 1 Milliliter(s) Inj 02/16/2017 02/16/2017 Inactive Toujeo SoloStar 300 unit/mL (1.5 mL) subcutaneous insulin pen RxNorm: 5742254 25 Unit(s) SQ QAM 02/12/2017 06/10/2017 Inactive Toujeo SoloStar 300 unit/mL (1.5 mL) subcutaneous insulin pen RxNorm: 2702704 10 Unit(s) SQ QAM 02/05/2017 02/11/2017 Inactive lisinopril 10 mg tablet RxNorm: 407040 1 Tablet(s) PO daily 02/28/2017 Inactive atorvastatin 40 mg tablet RxNorm: 709853 1 Tablet(s) PO daily 02/01/2017 02/28/2017 Inactive doxycycline hyclate 100 mg capsule RxNorm: 0795858 1 Capsule(s) PO BID 02/01/2017 02/10/2017 Inactive clonazepam 1 mg tablet RxNorm: 597019 1 Tablet(s) PO Q8 as needed 10/09/2016 01/05/2017 Inactive ceftriaxone 1 gram solution for injection RxNorm: 8423326 Inj 10/06/2016 10/06/2016 Inactive cyclobenzaprine 10 mg tablet RxNorm: 124686 1/2-1 Tablet(s) PO TID PRN 07/18/2016 01/28/2017 Inactive clonazepam 1 mg tablet RxNorm: 928332 1 Tablet(s) PO Q8 as needed 05/31/2016 05/29/2016 Inactive clonazepam 1 mg tablet RxNorm: 498374 1 Tablet(s) PO Q8 as needed 05/31/2016 08/28/2016 Inactive Toujeo SoloStar 300 unit/mL (1.5 mL) subcutaneous insulin pen RxNorm: 1284825 10 Unit(s) SQ daily 05/23/2016 01/28/2017 Inactive Crestor 10 mg tablet RxNorm: 064143 1 Tablet(s) PO QHS 201501/28/2017 Inactive Crestor 10 mg tablet RxNorm: 747684 1 Tablet(s) PO QHS 201505/18/2016 Inactive clonazepam 1 mg tablet RxNorm: 860592 1 Tablet(s) PO Q8 as needed 04/25/2016 05/30/2016 Inactive prednisone 20 mg tablet RxNorm: 465548 3 Tablet(s) PO daily 06/201602/10/2016 Inactive prednisone 20 mg tablet RxNorm: 713876 3 Tablet(s) PO daily 06/201605/14/2016 Inactive Kenalog 40 mg/mL suspension for injection RxNorm: 7279987 Milliliter(s) Inj 01/20/2016 01/20/2016 Inactive aspirin 81 mg tablet,delayed release RxNorm: 691098 1 Tablet(s) PO daily No Start Date Active Brilinta 90 mg tablet RxNorm: 1934167 1 Tablet(s) PO BID No Start Date Active acetaminophen 500 mg tablet RxNorm: 668174 1-2 Tablet(s) PO as needed No Start Date Active clopidogrel 75 mg tablet RxNorm: 092667 1 Tablet(s) PO daily No Start Date 02/28/2017 Inactive Novolog Flexpen U-100 Insulin aspart 100 unit/mL subcutaneous RxNorm: 7393905 5 units with breakfast lunch and 10 supper Unit(s) SQ No Start Date 06/17/2018 Inactive clonazepam 1 mg tablet RxNorm: 013278 1 Tablet(s) PO QHS No Start Date 04/24/2016 Inactive Coreg 6.25 mg tablet RxNorm: 952716 1 Tablet(s) PO BID No Start Date 09/29/2018 Inactive acyclovir 400 mg tablet RxNorm: 084533 2 Tablet(s) PO 5x daily No Start Date 02/28/2017 Inactive Lyrica 50 mg capsule RxNorm: 209825 Capsule(s) PO BID No Start Date 06/09/2018 Inactive Vraylar 3 mg capsule RxNorm: 5944385 1 Capsule(s) PO daily No Start Date 03/12/2018 Inactive valsartan 80 mg tablet RxNorm: 219476 1 Tablet(s) PO daily No Start Date 10/22/2018 Inactive Medication Administered Medication Codes Instructions Start Date Status ketorolac 60 mg/2 mL intramuscular solution RxNorm: 6041610 Milliliter 10/21/2018 No longer Active Kenalog 40 mg/mL suspension for injection RxNorm: 0025936 1.5Milliliter 09/30/2018 No longer Active Kenalog 40 mg/mL suspension for injection RxNorm: 1511729 Milliliter 09/11/2018 No longer Active Kenalog 40 mg/mL suspension for injection RxNorm: 9977644 Milliliter 06/28/2018 No longer Active ketorolac 30 mg/mL injection solution RxNorm: 907614 2Milliliter 05/02/2018 No longer Active ceftriaxone 500 mg solution for injection RxNorm: 3549448 1Milliliter 02/16/2017 No longer Active Kenalog 40 mg/mL suspension for injection RxNorm: 7075351 1Milliliter 02/16/2017 No longer Active ceftriaxone 1 gram solution for injection RxNorm: 3663993 10/06/2016 No longer Active Kenalog 40 mg/mL suspension for injection RxNorm: 3827919 Milliliter 01/20/2016 No longer Active Immunizations Vaccine [...] Item Item Code Result Date Culture Sputum 037172 LOWER RESPIRATORY TRACT CULTURE SEE NOTES 10/16/2018 LIPID GRP 8985799 CHOLESTEROL TNP:Duplicate Order 09/10/2018 LIPID GRP 5138789 Triglyceride TNP:Duplicate Order 2017 LIPID GRP HDL CHOLESTEROL TNP:Duplicate Order 2017 LIPID GRP 9124896 Chol/HDL Ratio TNP:Duplicate Order 2017 LIPID GRP 8876617 LDL Cholesterol TNP:Duplicate Order 2017 A1C HPLC 3941968 Hgb A1c 43431-9 TNP:Duplicate Order 2017 C Diff An [id number] GDH TNP:Lab Request 06/22/2018 C Diff An [id number] Toxin A/B TNP:Lab Request 06/22/2018 C Diff An [id number] C Diff Analyzer TNP:Lab Request 2017 C Diff An [id number] IC OK? TNP:Lab Request 06/22/2018 CBC 1606874 WBC 6.4 10e9/L 05/02/2018 CBC 3067117 RBC 5.60 10e12/L 05/02/2018 CBC 0017903 HEMOGLOBIN 17.0 g/dL 05/02/2018 CBC 3102529 HEMATOCRIT 48.0 % 05/02/2018 CBC 3852248 MCV 85.7 fL 05/02/2018 CBC 4328992 MCH 30.4 pg 05/02/2018 CBC 4212728 MCHC 35.4 g/dL 05/02/2018 CBC 3925911 PLATELET COUNT 166 10e9/L 05/02/2018 CBC 1831976 Mean Plt Volume 11.6 fL 05/02/2018 CBC 4120815 Neut Auto 48.6 % 05/02/2018 CBC 5365408 Lymph Auto 41.7 % 05/02/2018 CBC 1799872 [place] Auto 8.1 % 05/02/2018 CBC 1457608 RDW 13.1 % 05/02/2018 CBC 6744993 Eos Auto 1.1 % 05/02/2018 CBC 1154893 Baso Auto 0.5 % 05/02/2018 CBC 6531106 Neutrophil Abs 3.11 10e9/L 05/02/2018 CBC 5704550 Lymphocyte Abs 2.67 10e9/L 05/02/2018 CBC 9035339 Monocyte Abs 0.52 10e9/L 05/02/2018 CBC 2243100 Eosinophil Abs 0.07 10e9/L 05/02/2018 CBC 7142726 RDW-SD 40.0 fL 05/02/2018 CBC 5774153 Basophil Abs 0.03 10e9/L 05/02/2018 CHEM 14 9662805 AST 17 U/L 05/02/2018 CHEM 14 9407135 ALT 17 U/L 05/02/2018 CHEM 14 7203708 BUN 17 mg/dL 05/02/2018 CHEM 14 7340935 ALBUMIN 4.0 g/dL 05/02/2018 CHEM 14 1213225 CHLORIDE 97 mmol/L 05/02/2018 CHEM 14 4238273 Bili Total 0.9 mg/dL 05/02/2018 CHEM 14 9491388 ALK PHOS 67 U/L 05/02/2018 CHEM 14 2585121 SODIUM 135 mmol/L 05/02/2018 CHEM 14 0118066 CREATININE 1.18 mg/dL 05/02/2018 CHEM 14 9315285 CALCIUM 9.4 mg/dL 05/02/2018 CHEM 14 8531253 POTASSIUM 4.4 mmol/L 05/02/2018 CHEM 14 6118263 TOTAL PROTEIN 6.9 g/dL 05/02/2018 CHEM 14 2000256 GLUCOSE 316 mg/dL 05/02/2018 CHEM 14 9481780 Bicarbonate 29 mmol/L 05/02/2018 CHEM 14 2195986 AGAP 9 mmol/L 05/02/2018 MEAN GLUC 2449156 Calc Mean Gluc 283 mg/dL 05/02/2018 A1C HPLC 6846310 Hgb A1c 23117-3 11.5 % 05/02/2018 GFR CALC 4958151 GFR Non Afr Amr >60 mL/min 05/02/2018 GFR CALC 0873203 GFR Afr Amr >60 mL/min 05/02/2018 [facility] Rickey 5857278 JADE Rickey Complete 02/28/2018 GFR CALC 8552131 GFR Non Afr Amr >60 mL/min 02/28/2018 GFR CALC 1784186 GFR Afr Amr >60 mL/min 02/28/2018 UA W/CII 0625588 UA Urine Appear Normal 02/28/2018 UA W/CII 7267766 UA Protein 1+ 02/28/2018 UA W/CII 4632366 UA Hemoglobin Negative 02/28/2018 UA W/CII 6646214 UA Glucose 4+ 02/28/2018 UA W/CII 1751180 UA Ketones Trace 02/28/2018 UA W/CII 0186800 UA pH 5.5 02/28/2018 UA W/CII 1110693 U Spec [place] 1.015 02/28/2018 UA W/CII 3916472 UA Bilirubin Negative 02/28/2018 UA W/CII 1382364 UA Nitrite NEG 02/28/2018 UA W/CII 9865202 UA Leuk Esteras Negative 02/28/2018 MICR 8338968 UA WBC/hpf 1 02/28/2018 MICR 0813870 UA RBC hpf 2 02/28/2018 MICR 2064256 UA WBC auto 3.8 /uL 02/28/2018 MICR 2519885 UA RBC auto 12.2 /uL 02/28/2018 MICR 9949935 UA SQ EPI auto 2.3 /uL 02/28/2018 MICR 8166568 UA H Cast auto 0.10 /uL 02/28/2018 CBC 6434702 WBC 6.4 10e9/L 02/28/2018 CBC 9093931 RBC 5.51 10e12/L 02/28/2018 CBC 2080314 HEMOGLOBIN 16.7 g/dL 02/28/2018 CBC 3819994 HEMATOCRIT 46.9 % 02/28/2018 CBC 7075139 MCV 85.1 fL 02/28/2018 CBC 4773945 MCH 30.3 pg 02/28/2018 CBC 6041283 MCHC 35.6 g/dL 02/28/2018 CBC 4549878 PLATELET COUNT 173 10e9/L 02/28/2018 CBC 9302683 Mean Plt Volume 11.6 fL 02/28/2018 CBC 7188368 Neut Auto 51.8 % 02/28/2018 CBC 2704577 Lymph Auto 39.9 % 02/28/2018 CBC 5590555 [place] Auto 7.3 % 02/28/2018 CBC 0147316 Eos Auto 0.8 % 02/28/2018 CBC 7651240 RDW 13.3 % 02/28/2018 CBC 7673891 Baso Auto 0.2 % 02/28/2018 CBC 9804721 Neutrophil Abs 3.32 10e9/L 02/28/2018 CBC 3541229 Lymphocyte Abs 2.55 10e9/L 02/28/2018 CBC 7435173 Monocyte Abs 0.47 10e9/L 02/28/2018 CBC 8924204 Eosinophil Abs 0.05 10e9/L 02/28/2018 CBC 7631716 Basophil Abs 0.01 10e9/L 02/28/2018 CBC 3757407 RDW-SD 40.8 fL 02/28/2018 CHEM 14 9563112 AST 17 U/L 02/28/2018 CHEM 14 3743920 ALT 17 U/L 02/28/2018 CHEM 14 7449183 BUN 20 mg/dL 02/28/2018 CHEM 14 8890632 ALBUMIN 4.1 g/dL 02/28/2018 CHEM 14 2286828 CHLORIDE 97 mmol/L 02/28/2018 CHEM 14 8616010 Bili Total 1.3 mg/dL 02/28/2018 CHEM 14 2769996 ALK PHOS 78 U/L 02/28/2018 CHEM 14 0596515 SODIUM 135 mmol/L 02/28/2018 CHEM 14 6492224 CREATININE 1.09 mg/dL 02/28/2018 CHEM 14 8271068 CALCIUM 9.6 mg/dL 02/28/2018 CHEM 14 7263606 POTASSIUM 3.8 mmol/L 02/28/2018 CHEM 14 7574668 TOTAL PROTEIN 7.3 g/dL 02/28/2018 CHEM 14 1303626 GLUCOSE 349 mg/dL 02/28/2018 CHEM 14 9471456 Bicarbonate 29 mmol/L 02/28/2018 CHEM 14 2037270 AGAP 9 mmol/L 02/28/2018 [place] Spotted Fever Igg/Igm 501155 FEI MT SPOTTED FEVER IGM EIA . 09/05/2017 [place] Spotted Fever Igg/Igm 843564 RMSF, IGM 0.17 index 09/05/2017 [place] Spotted Fever Igg/Igm 246437 FEI MT SPOTTED FEVER IGG EIA FLEX . 09/05/2017 [place] Spotted Fever Igg/Igm 777029 RMSF, IGG SCREEN-FLEX Positive 09/05/2017 [place] Spot'D Fev Igg 707431 RMSF, IGG -TITER IFA <1:64 11/2016 Ehrlichia Chaffeensis Antibody Igm 405005 EHRLICHIA CHAFFEENSIS IGM < 1:16 09/03/2017 Ehrlichia Chaffeensis Antibody Igg 060813 EHRLICHIA CHAFFEENSIS IGG <1:64 09/03/2017 Lymes Disease Total Antibodies With Western Blot Reflex B. BURGDORFERI, IGG/IGM 0.223 08/30/2017 Lymes Disease Total Antibodies With Western Blot Reflex C-Reactive Protein Qnt Crqnt CRP 0.00 mg/dl 08/27/2017 Sed Rate Ord21 ESR 8 mm/hr 08/27/2017 Comp Metabolic Pwf772 NA 135 mEq/L 08/16/2017 Comp Metabolic Lir568 K 4.1 mEq/L 08/16/2017 Comp Metabolic Yyy670 CL 98 mEq/L 08/16/2017 Comp Metabolic Mrv547 CO2 28.0 mEq/L 08/16/2017 Comp Metabolic Qew529 ANION GAP 13 08/16/2017 Comp Metabolic Sgh777 GLUCOSE 299 mg/dL 08/16/2017 Comp Metabolic Zwr776 Creat 0.9 mg/dL 08/16/2017 Comp Metabolic Wcn178 eGFR 90 ml/min/1.73m2 08/16/2017 Comp Metabolic Tiy506 BUN 20 mg/dL 08/16/2017 Comp Metabolic Gie187 B/C Ratio 21.5 Ratio 08/16/2017 Comp Metabolic Boq686 CALCIUM 9.2 mg/dL 08/16/2017 Comp Metabolic Ryf495 ALK PHOS 84 U/L 08/16/2017 Comp Metabolic Gbw925 AST(SGOT) 19 U/L 08/16/2017 Comp Metabolic Vfk900 ALT(SGPT) 24 U/L 08/16/2017 Comp Metabolic Ytk117 BILI T 1.1 mg/dL 08/16/2017 Comp Metabolic Euz597 ALBUMIN 4.2 g/dL 08/16/2017 Comp Metabolic Rsp210 TPRO 7.2 g/dL 08/16/2017 Comp Metabolic Sue003 GLOB 3.0 g/dL 08/16/2017 Comp Metabolic Pwq666 A/G Ratio 1.4 Ratio 08/16/2017 Comp Metabolic Bcd543 Osmo 284 mOsmo 08/16/2017 %Hba1C Kpw075 % HbA1c 05084-3 12.5 % 08/16/2017 %Hba1C Tbt973 Gluc Ave 312 mg/dL 08/16/2017 Urine Culture Ucult Complete NO Growth Day 2 06/23/2017 Urine Culture Ucult Preliminary NO Growth Day 1 06/23/2017 C RAP A SC [id number] Strep A Negative 06/08/2017 %Hba1C Tgq953 % HbA1c 27956-8 9.5 % 05/04/2017 %Hba1C Kor827 Gluc Ave 226 mg/dL 05/04/2017 Tsh Ord6 [...] 31.7 pg 05/04/2017 Cbc With Differential Ord2 [place]% 8.5 % 05/04/2017 Cbc With Differential Ord2 [...] 2.48 K/ul 05/04/2017 Cbc With Differential Ord2 [place] ABS# 0.5 K/ul 05/04/2017 Cbc With Differential Ord2 Eos ABS# 0.1 K/ul 05/04/2017 Cbc With Differential Ord2 Baso ABS# 0.0 K/ul 05/04/2017 Comp Metabolic Mde022 NA 135 mEq/L 05/04/2017 Comp Metabolic Abv631 K 4.2 mEq/L 05/04/2017 Comp Metabolic Wyb574 CL 99 mEq/L 05/04/2017 Comp Metabolic Igg108 CO2 26.0 mEq/L 05/04/2017 Comp Metabolic Fte241 ANION GAP 14 05/04/2017 Comp Metabolic Nsn906 GLUCOSE 277 mg/dL 05/04/2017 Comp Metabolic Zuk251 Creat 0.9 mg/dL 05/04/2017 Comp Metabolic Ldc291 eGFR 96 ml/min/1.73m2 05/04/2017 Comp Metabolic Lks260 BUN 23 mg/dL 05/04/2017 Comp Metabolic Otd768 B/C Ratio 26.1 Ratio 05/04/2017 Comp Metabolic Rtw752 CALCIUM 8.9 mg/dL 05/04/2017 Comp Metabolic Mwm308 ALK PHOS 81 U/L 05/04/2017 Comp Metabolic Cgw306 AST(SGOT) 21 U/L 05/04/2017 Comp Metabolic Vtz600 ALT(SGPT) 27 U/L 05/04/2017 Comp Metabolic Cbs487 BILI T 1.2 mg/dL 05/04/2017 Comp Metabolic Qnk317 ALBUMIN 4.0 g/dL 05/04/2017 Comp Metabolic Jer616 TPRO 6.7 g/dL 05/04/2017 Comp Metabolic Lbz687 GLOB 2.7 g/dL 05/04/2017 Comp Metabolic Fuv561 A/G Ratio 1.5 Ratio 05/04/2017 Comp Metabolic Hpk038 O[place] 284 mOsmo 05/04/2017 C A/B FLU 2134884 Influenza A Scr Negative 02/16/2017 C A/B FLU 6144918 Influenza B Scr Positive 02/16/2017 Cbc With [...] 39.7 % 05/23/2016 Cbc With Differential Ord2 [place]% 8.8 % 05/23/2016 Cbc With Differential Ord2 [...] 2.07 K/ul 05/23/2016 Cbc With Differential Ord2 [place] ABS# 0.5 K/ul 05/23/2016 Cbc With Differential Ord2 Eos ABS# 0.1 K/ul 05/23/2016 Cbc With Differential Ord2 Baso ABS# 0.0 K/ul 05/23/2016 Lipid Ord30 CHOL 397 mg/dL 05/17/2016 Lipid Ord30 HDL 48.0 mg/dl 05/17/2016 Lipid Ord30 TRIG 578 mg/dL 05/17/2016 Lipid Ord30 LDL Unable to calculate Due to elevated triglycerides mg/dL 05/17/2016 Lipid Ord30 C/HDL 8.3 Ratio 05/17/2016 %Hba1C Ziy578 % HbA1c 75632-8 12.4 % 05/16/2016 %Hba1C Owl997 Gluc Ave 309 mg/dL 05/16/2016 Cbc With [...] 87.4 fl 05/15/2016 Cbc With Differential Ord2 [place]% 7.8 % 05/15/2016 Cbc With Differential Ord2 [...] 2.04 K/ul 05/15/2016 Cbc With Differential Ord2 [place] ABS# 0.5 K/ul 05/15/2016 Cbc With Differential Ord2 Eos ABS# 0.1 K/ul 05/15/2016 Cbc With Differential Ord2 Baso ABS# 0.0 K/ul 05/15/2016 Tsh Ord6 hTSH II 1.70 uIU/mL 05/15/2016 Comp Metabolic Zbp129 NA 135 mEq/L 05/15/2016 Comp Metabolic Eor540 K 3.9 mEq/L 05/15/2016 Comp Metabolic Xvl396 CL 96 mEq/L 05/15/2016 Comp Metabolic Akz106 CO2 27.0 mEq/L 05/15/2016 Comp Metabolic Faf917 ANION GAP 16 05/15/2016 Comp Metabolic Bfx011 GLUCOSE 183 mg/dL 05/15/2016 Comp Metabolic Erw717 Creat 1.1 mg/dL 05/15/2016 Comp Metabolic Iya853 eGFR 71 ml/min/1.73m2 05/15/2016 Comp Metabolic Ial167 BUN 17 mg/dL 05/15/2016 Comp Metabolic Zge878 B/C Ratio 14.9 Ratio 05/15/2016 Comp Metabolic Hwq345 CALCIUM 9.6 mg/dL 05/15/2016 Comp Metabolic Ram725 ALK PHOS 100 U/L 05/15/2016 Comp Metabolic Mrx931 AST(SGOT) 20 U/L 05/15/2016 Comp Metabolic Djf906 ALT(SGPT) 20 U/L 05/15/2016 Comp Metabolic Chi811 BILI T 1.3 mg/dL 05/15/2016 Comp Metabolic Bhj178 ALBUMIN 4.6 g/dL 05/15/2016 Comp Metabolic Qfh366 TPRO 8.1 g/dL 05/15/2016 Comp Metabolic Eun287 GLOB 3.5 g/dL 05/15/2016 Comp Metabolic Bqv552 A/G Ratio 1.3 Ratio 05/15/2016 Comp Metabolic Ixr010 Osmo 276 mOsmo 05/15/2016 Review of Systems [...] of skin Location: face 05/04/2017 patch left evangelical Full Exam - General 1992 Constitutional general [...] CPT-4: J3301 09/30/2018 THER/PROPH/DIAG INJ SC/IM CPT-4: 48118 09/11/2018 TRIAMCINOLONE ACET INJ NOS CPT-4: J3301 09/11/2018 IMMUNIZATION ADMIN CPT -4: 66566 07/22/2018 FLU VAC NO PRSV 4 MENA 3 YRS+ CPT-4: 04479 07/22/2018 TRIAMCINOLONE ACET INJ NOS CPT-4: J3301 06/28/2018 KETOROLAC TROMETHAMINE INJ CPT-4: J1885 05/02/2018 FLU VAC NO PRSV 4 MENA 3 YRS+ CPT-4: 31903 08/16/2017 IMMUNIZATION ADMIN CPT -4: 42363 08/16/2017 URINALYSIS NONAUTO W/O SCOPE CPT-4: 89805 06/21/2017 TRIAMCINOLONE ACET INJ NOS CPT-4: J3301 05/04/2017 THER/PROPH/DIAG INJ SC/IM CPT-4: 65752 05/04/2017 TRIAMCINOLONE ACET INJ NOS CPT-4: J3301 02/16/2017 ROCEPHIN, PER 250 MG CPT-4: J0696 02/16/2017 ROCEPHIN, PER 250 MG CPT-4: J0696 10/06/2016 URINALYSIS NONAUTO W/O SCOPE CPT-4: 47736 07/18/2016 TRIAMCINOLONE ACET INJ NOS CPT-4: J3301 01/20/2016 Vital Signs Date Vital 11/12/2018 Blood Pressure 1: 138/76 Code : 8480-6 BMI: 33.9 Code : 84673-7 Heart Rate 1 : 91 bpm Height: 6'2" SpO2: 99% Weight: 264 lbs 10/30/2018 Blood Pressure 1: 130/72 Code : 8480-6 BMI: 33.3 Code : 76671-6 Heart Rate 1 : 83 bpm Height: 6'2" SpO2: 95% Temperature: 36.5 (C) / 97.7 (F) Weight: 259 lbs 10/24/2018 Blood Pressure 1: 130/70 Code : 8480-6 Heart Rate 1: 95 bpm Height: 6'2" SpO2: 96% 10/23/2018 Blood Pressure 1: 100/70 Code : 8480-6 Blood Pressure 2: 102/70 Code: 8480-6 BMI: 33.3 Code: 93734-6 Heart Rate 1: 106 bpm Height: 6'2" SpO2: 98% Weight: 259 lbs 10/21/2018 Blood Pressure 1: 140/90 Code : 8480-6 BMI: 32.9 Code : 17617-2 Heart Rate 1 : 96 bpm Height: 6'2" SpO2: 92% Weight: 256 lbs 10/17/2018 Blood Pressure 1: 110/68 Code : 8480-6 BMI: 32.9 Code : 30690-5 Heart Rate 1 : 82 bpm Height: 6'2" SpO2: 97% Weight: 256 lbs 10/14/2018 Blood Pressure 1: 124/70 Code : 8480-6 BMI: 33.6 Code : 19385-8 Heart Rate 1 : 76 bpm Height: 6'2" SpO2: 99% Temperature: 36.3 (C) / 97.3 (F) Weight: 262 lbs 09/30/2018 Blood Pressure 1: 138/82 Code : 8480-6 BMI: 33.6 Code : 21791-0 Heart Rate 1 : 82 bpm Height: 6'2" SpO2: 98% Temperature: 36.3 (C) / 97.3 (F) Weight: 262 lbs 09/09/2018 Blood Pressure 1: 140/80 Code : 8480-6 BMI: 33.0 Code : 83060-8 Heart Rate 1 : 97 bpm Height: 6'2" SpO2: 93% Temperature: 36.8 (C) / 98.2 (F) Weight: 257 lbs 07/22/2018 Blood Pressure 1: 120/78 Code : 8480-6 BMI: 31.6 Code : 85138-4 Heart Rate 1 : 87 bpm Height: 6'2" SpO2: 98% Weight: 246 lbs 07/16/2018 Blood Pressure 1: 132/74 Code : 8480-6 BMI: 31.2 Code : 51239-1 Heart Rate 1 : 90 bpm Height: 6'2" SpO2: 96% Weight: 243 lbs 07/01/2018 Blood Pressure 1: 142/82 Code : 8480-6 BMI: 31.8 Code : 90664-8 Heart Rate 1 : 88 bpm Height: 6'2" SpO2: 98% Weight: 248 lbs 06/28/2018 Blood Pressure 1: 132/76 Code : 8480-6 BMI: 31.8 Code : 23756-6 Heart Rate 1 : 107 bpm Height: 6'2" SpO2: 98% Temperature: 37.9 (C) / 100.3 (F) Weight: 248 lbs 06/18/2018 Blood Pressure 1: 138/82 Code : 8480-6 BMI: 31.8 Code : 04439-5 Heart Rate 1 : 82 bpm Height: 6'2" SpO2: 97% Weight: 248 lbs 06/04/2018 Blood Pressure 1: 128/84 Code : 8480-6 BMI: 33.9 Code : 93407-4 Heart Rate 1 : 86 bpm Height: 6'2" SpO2: 95% Weight: 264 lbs 05/13/2018 Blood Pressure 1: 130/80 Code : 8480-6 BMI: 31.1 Code : 72300-2 Heart Rate 1 : 100 bpm Height: 6'2" SpO2: 94% Weight: 242 lbs 05/02/2018 Blood Pressure 1: 134/84 Code : 8480-6 BMI: 31.2 Code : 99227-7 Heart Rate 1 : 93 bpm Height: 6'2" SpO2: 98% Weight: 243 lbs 04/29/2018 Blood Pressure 1: 142/88 Code : 8480-6 BMI: 31.6 Code : 00512-3 Heart Rate 1 : 96 bpm Height: 6'2" SpO2: 96% Temperature: 36.7 (C) / 98.1 (F) Weight: 246 lbs 03/13/2018 Blood Pressure 1: 120/76 Code : 8480-6 BMI: 30.9 Code : 82239-4 Heart Rate 1 : 112 bpm Height: 6'2" SpO2: 97% Weight: 241 lbs 03/07/2018 Blood Pressure 1: 108/78 Code : 8480-6 BMI: 30.0 Code : 54144-4 Heart Rate 1 : 87 bpm Height: 6'2" SpO2: 98% Weight: 234 lbs 02/28/2018 Blood Pressure 1: 106/74 Code : 8480-6 BMI: 30.0 Code : 21549-1 Heart Rate 1 : 101 bpm Height: 6'2" SpO2: 98% Temperature: 36.4 (C) / 97.5 (F) Weight: 234 lbs 02/13/2018 Blood Pressure 1: 110/78 Code : 8480-6 BMI: 30.0 Code : 14736-2 Heart Rate 1 : 106 bpm Height: 6'2" SpO2: 98% Weight: 234 lbs 01/29/2018 Blood Pressure 1: 106/68 Code : 8480-6 BMI: 30.0 Code : 71467-5 Heart Rate 1 : 108 bpm Height: 6'2" SpO2: 98% Weight: 234 lbs 08/27/2017 Blood Pressure 1: 134/76 Code : 8480-6 Heart Rate 1: 98 bpm Height: SpO2: 97% Weight: 08/16/2017 Blood Pressure 1: 128/80 Code : 8480-6 BMI: 32.0 Code : 76237-1 Heart Rate 1 : 94 bpm Height: [...] Code : 8480-6 BMI: 31.8 Code : 67915-9 Heart Rate 1 : 102 bpm Height: [...] Code : 8480-6 BMI: 31.8 Code : 10587-2 Heart Rate 1 : 85 bpm Height: 6'2" SpO2: 96% Temperature: 36.6 (C) / 97.9 (F) Weight: 248 lbs 02/12/2017 Blood Pressure 1: 126/76 Code : 8480-6 BMI: 31.8 Code : 86036-9 Heart Rate 1 : 106 bpm Height: 6'2" SpO2: 91% Weight: 248 lbs 02/05/2017 Blood Pressure 1: 146/86 Code : 8480-6 BMI: 31.9 Code : 44820-1 Heart Rate 1 : 98 bpm Height: 6'2" SpO2: 87% Temperature: 36.7 (C) / 98.0 (F) Weight: 248 lbs 8 oz 01/29/2017 Blood Pressure 1: 132/84 Code : 8480-6 BMI: 31.8 Code : 79580-0 Heart Rate 1 : 83 bpm Height: 6'2" SpO2: 97% Weight: 248 lbs 10/13/2016 Blood Pressure 1: 128/72 Code : 8480-6 Heart Rate 1: 86 bpm SpO2: 94% 10/09/2016 Blood Pressure 1: 128/68 Code : 8480-6 Heart Rate 1: 136 bpm SpO2: 94% Temperature: 36.8 (C) / 98.2 (F) 10/06/2016 Blood Pressure 1: 140/80 Code : 8480-6 BMI: 32.1 Code : 92069-3 Heart Rate 1 : 94 bpm Height: 6'2" SpO2: 95% Weight: 250 lbs 07/18/2016 Blood Pressure 1: 128/86 Code : 8480-6 BMI: 32.1 Code : 25424-4 Heart Rate 1 : 89 bpm Height: 6'2" SpO2: 96% Weight: 250 lbs 06/22/2016 Blood Pressure 1: 118/70 Code : 8480-6 BMI: 32.1 Code : 94796-3 Heart Rate 1 : 70 bpm Height: 6'2" SpO2: 97% Weight: 250 lbs 05/23/2016 Blood Pressure 1: 128/80 Code : 8480-6 BMI: 32.1 Code : 50876-2 Heart Rate 1 : 76 bpm Height: 6'2" SpO2: 98% Weight: 250 lbs 05/15/2016 Blood Pressure 1: 110/90 Code : 8480-6 BMI: 31.3 Code : 51317-7 Heart Rate 1 : 111 bpm Height: 6'2" SpO2: 97% Temperature: 36.6 (C) / 97.8 (F) Weight: 244 lbs 01/20/2016 Blood Pressure 1: 128/76 Code : 8480-6 BMI: 33.0 Code : 91355-1 Heart Rate 1 : 103 bpm Height: [...] data Encounters Encounter Performer Location Codes Date ([id number]) [id number] EST. PATIENT, LEVEL III Diagnosis: Cough[ICD10: R05] Diagnosis: Pneumonia due to other Gram-negative bacteria[ICD10: J15.6] Marcela Ha MD, [facility] CPT-4: 39328 11/12/2018 ([id number]) 87366 EST. PATIENT, LEVEL III Diagnosis: Pneumonia due to other Gram-negative bacteria[ICD10: J15.6] Diagnosis: Cough[ICD10: R05] Melida Ha MD, [facility] CPT-4: 51839 10/30/2018 ([id number]) 79040 EST. PATIENT, LEVEL II Diagnosis: Pain in joints of right hand[ICD10: M25.541] Diagnosis: Trigger finger, right middle finger[ICD10: M65.331] Marcela Ha MD, [facility] CPT-4: 39668 10/24/2018 ([id number]) 12684 EST. PATIENT, LEVEL IV Diagnosis: Essential (primary) hypertension[ICD10: I10] Diagnosis: Type 2 diabetes mellitus with foot ulcer[ICD10: E11.621] Melida Ha MD, [facility] CPT-4: 68369 10/23/2018 ([id number]) 26298 EST. PATIENT, LEVEL III Diagnosis: Cellulitis of right finger[ICD10: L03.011] Diagnosis: Type 2 diabetes mellitus with foot ulcer[ICD10: E11.621] Diagnosis: Pain in right hand[ICD10: M79.641] Melida Ha MD, [facility] CPT-4: 34075 10/21/2018 [id number] EST. PATIENT, LEVEL III Diagnosis: Spontaneous ecchymoses[ICD10: R23.3] Diagnosis: Cellulitis of right lower limb[ICD10: L03.115] Diagnosis: Cellulitis of left lower limb[ICD10: L03.116] Madeline Ha MD, [facility] CPT-4: 29106 10/17/2018 ([id number]) 21274 EST. PATIENT, LEVEL III Diagnosis: Cough[ICD10: R05] Diagnosis: Acute bronchitis, unspecified[ICD10: J20.9] Melida Ha MD, [facility] CPT-4: 08520 10/14/2018 [id number] EST. PATIENT, LEVEL III Diagnosis: Acute laryngopharyngitis[ICD10: J06.0] Diagnosis: Cough[ICD10: R05] Madeline Ha MD, [facility] CPT-4: 40808 09/30/2018 ([id number]) 41814 EST. PATIENT, LEVEL III Diagnosis: Acute recurrent maxillary sinusitis[ICD10: J01.01] Diagnosis: Cough[ICD10: R05] Diagnosis: Type 2 diabetes mellitus with hyperglycemia[ICD10: E11.65] Marcela Ha MD, [facility] CPT-4: 87480 09/09/2018 ([id number]) 12997 EST. PATIENT, LEVEL IV Diagnosis: Essential (primary) hypertension[ICD10: I10] Diagnosis: Mixed hyperlipidemia[ICD10: E78.2] Diagnosis: Bipolar disorder, current episode depressed, moderate[ICD10: F31.32] Diagnosis: Type 2 diabetes mellitus with other specified complication[ICD10: E11.69] Melida Ha MD, [facility] CPT-4: 01768 2017 ([id number]) 76608 EST. PATIENT, LEVEL III Diagnosis: Insomnia due to medical condition[ICD10: G47.01] Marcela Ha MD, [facility] CPT-4: 29172 07/16/2018 ([id number]) Miscellaneous no charge Diagnosis: Cough[ICD10: R05] Madeline Ha MD, [facility] CPT-4: 92220 07/01/2018 35068 EST. PATIENT, LEVEL III Diagnosis: Cough[ICD10: R05] Diagnosis: Acute laryngopharyngitis[ICD10: J06.0] Diagnosis: Other allergic rhinitis[ICD10: J30.89] Madeline Ha MD, [facility] CPT-4: 62391 06/28/2018 ([id number]) 23540 EST. PATIENT, LEVEL IV Diagnosis: Type 2 diabetes mellitus with hyperglycemia[ICD10: E11.65] Diagnosis: Essential (primary) hypertension[ICD10: I10] Melida Ha MD, [facility] CPT-4: 75405 06/18/2018 ([id number]) 73673 EST. PATIENT, LEVEL IV Diagnosis: Type 2 diabetes mellitus with hyperglycemia[ICD10: E11.65] Diagnosis: Essential (primary) hypertension[ICD10: I10] Diagnosis: Localized edema[ICD10: R60.0] Melida Ha MD, [facility] CPT- 4: 18456 06/04/2018 ([id number]) 54973 EST. PATIENT, LEVEL III Diagnosis: Type 2 diabetes mellitus with hyperglycemia[ICD10: E11.65] Diagnosis: Myalgia[ICD10: M79.1] Diagnosis: Pain in right hip[ICD10: M25.551] Diagnosis: Pain in left hip[ICD10: M25.552] Marcela Ha MD, [facility] CPT-4: 32856 05/13/2018 ([id number]) 86437 EST. PATIENT, LEVEL III Diagnosis: Myalgia[ICD10: M79.1] Diagnosis: Pain in right hip[ICD10: M25.551] Diagnosis: Pain in left hip[ICD10: M25.552] Marcela Ha MD, [facility] CPT-4: 51585 05/02/2018 ([id number]) 26095 EST. PATIENT, LEVEL IV Diagnosis: Essential (primary) hypertension[ICD10: I10] Diagnosis: Type 2 diabetes mellitus with hyperglycemia[ICD10: E11.65] Diagnosis: Major depressive disorder, single episode, moderate[ICD10: F32.1] Diagnosis: Myalgia[ICD10: M79.1] Marcela Ha MD, [facility] CPT-4: 98699 04/29/2018 ([id number]) 91121 EST. PATIENT, LEVEL IV Diagnosis: Type 2 diabetes mellitus with hyperglycemia[ICD10: E11.65] Diagnosis: Essential (primary) hypertension[ICD10: I10] Diagnosis: Major depressive disorder, single episode, moderate[ICD10: F32.1] Melida Ha MD, [facility] CPT-4: 30230 03/13/2018 ([id number]) 38140 EST. PATIENT, LEVEL III Diagnosis: Type 2 diabetes mellitus with hyperglycemia[ICD10: E11.65] Diagnosis: Bipolar disorder, current episode depressed, moderate[ICD10: F31.32] Diagnosis: Orthostatic hypotension[ICD10: I95.1] Marcela Ha MD, [facility] CPT-4: 90972 03/07/2018 ([id number]) 61720 EST. PATIENT, LEVEL IV Diagnosis: Type 2 diabetes mellitus with hyperglycemia[ICD10: E11.65] Diagnosis: Major depressive disorder, single episode, moderate[ICD10: F32.1] Diagnosis: Orthostatic hypotension[ICD10: I95.1] Diagnosis: Other fatigue[ICD10: R53.83] Marcela Ha MD, [facility] CPT-4: 94825 02/28/2018 59126 EST. PATIENT, LEVEL IV Diagnosis: Other fatigue[ICD10: R53.83] Diagnosis: Other malaise[ICD10: R53.81] Diagnosis: Gastro-esophageal reflux disease without esophagitis[ICD10: K21.9] Madeline Ha MD, [facility] CPT-4: 63444 02/13/2018 ([id number]) 24433 EST. PATIENT, LEVEL IV Diagnosis: Type 2 diabetes mellitus with foot ulcer[ICD10: E11.621] Diagnosis: Essential (primary) hypertension[ICD10: I10] Diagnosis: Gastro-esophageal reflux disease without esophagitis[ICD10: K21.9] Marcela Ha MD, [facility] CPT-4: 02042 01/29/2018 20030 EST. PATIENT, LEVEL III Diagnosis: Other malaise[ICD10: R53.81] Diagnosis: Other fatigue[ICD10: R53.83] Diagnosis: Pain in right shoulder[ICD10: M25.511] Diagnosis: Pain in left shoulder[ICD10: M25.512] Madeline Ha MD, [facility] CPT-4: 79089 08/27/2017 ([id number]) 61699 EST. PATIENT, LEVEL IV Diagnosis: Essential (primary) hypertension[ICD10: I10] Diagnosis: Type 2 diabetes mellitus with hyperglycemia[ICD10: E11.65] Diagnosis: VACCIN FOR INFLUENZA[ICD10: Z23] Melida Ha MD, [facility] CPT-4: 63281 08/16/2017 21234 EST. PATIENT, LEVEL III Diagnosis: Zoster without complications[ICD10: B02.9] Madeline Ha MD [facility] CPT-4: 31765 07/26/2017 ([id number]) 70581 EST. PATIENT, LEVEL III Diagnosis: Cellulitis of right lower limb[ICD10: L03.115] Marcela Ha MD [facility] CPT-4: 84380 07/03/2017 38593 EST. PATIENT, LEVEL II Diagnosis: Laceration without foreign body of left forearm, initial encounter[ ICD10: S51.812A] Marcela Ha MD [facility] CPT-4: 59229 06/29/2017 ([id number]) 18524 EST. PATIENT, LEVEL III Diagnosis: Cellulitis of right lower limb[ICD10: L03.115] Diagnosis: Type 2 diabetes mellitus with foot ulcer[ICD10: E11.621] Marcela Ha MD [facility] CPT-4: 53435 06/18/2017 ([id number]) 56430 EST. PATIENT, LEVEL IV Diagnosis: Cellulitis of right lower limb[ICD10: L03.115] Diagnosis: Acute laryngopharyngitis[ICD10: J06.0] Diagnosis: Gastro-esophageal reflux disease without esophagitis[ICD10: K21.9] Marcela Ha MD [facility] CPT-4: 43633 06/07/2017 ([id number]) 31926 EST. PATIENT, LEVEL III Diagnosis: Type 2 diabetes mellitus with hyperglycemia[ICD10: E11.65] Diagnosis: Insect bite (nonvenomous) of abdominal wall, initial encounter[ICD10 : S30.861A] Marcela Ha MD [facility] CPT-4: 27401 05/17/2017 ([id number]) 85006 EST. PATIENT, LEVEL III Diagnosis: Allergic contact dermatitis due to plants, except food[ICD10: L23.7] Melida Ha MD [facility] CPT-4: 89369 05/04/2017 ([id number]) 73085 EST. PATIENT, LEVEL III Diagnosis: Essential (primary) hypertension[ICD10: I10] Marcela Ha MD [facility] CPT-4: 16760 03/15/2017 ([id number]) 99842 EST. PATIENT, LEVEL III Diagnosis: Cough[ICD10: R05] Diagnosis: Essential (primary) hypertension[ICD10: I10] Marcela Ha MD [facility] CPT-4: 01027 03/01/2017 ([id number]) 34047 EST. PATIENT, LEVEL III Diagnosis: Cough[ICD10: R05] Diagnosis: Nasal congestion[ICD10: R09.81] Diagnosis: Acute recurrent maxillary sinusitis[ICD10: J01.01] Marcela Ha MD [facility] CPT-4: 70509 02/16/2017 ([id number]) 45919 EST. PATIENT, LEVEL III Diagnosis: Type 2 diabetes mellitus with hyperglycemia[ICD10: E11.65] Marcela Ha MD [facility] CPT-4: 13664 02/12/2017 ([id number]) 26701 EST. PATIENT, LEVEL IV Diagnosis: Type 2 diabetes mellitus with hyperglycemia[ICD10: E11.65] Diagnosis: Muscle weakness (generalized)[ICD10: M62.81] Diagnosis: Disorientation, unspecified[ICD10: R41.0] Marcela Ha MD [facility] CPT-4: 16294 02/05/2017 ([id number]) Patient admitted to the hospital from clinic (NO CHARGE) Diagnosis: Type 2 diabetes mellitus with hyperglycemia[ICD10: E11.65] Diagnosis: Disorientation, unspecified[ICD10: R41.0] Diagnosis: Muscle weakness (generalized)[ICD10: M62.81] Marcela Ha MD [facility] CPT-4: 91049Y 01/29/2017 ([id number]) Miscellaneous no charge Diagnosis: Cellulitis of right lower limb[ICD10: L03.115] [facility] CPT-4: 42436 10/13/2016 ([id number]) Miscellaneous no charge Diagnosis: Type 2 diabetes mellitus with foot ulcer[ICD10: E11.621] Diagnosis: Pain in right foot[ICD10: M79.671] [facility] CPT-4: 66730 10/09/2016 76493 EST. PATIENT, LEVEL II Diagnosis: Cellulitis of right lower limb[ICD10: L03.115] Marcela Ha MD [facility] CPT-4: 63892 10/06/2016 ([id number]) 57920 EST. PATIENT, LEVEL IV Diagnosis: Low back pain[ICD10: M54.5] Diagnosis: Other deformities of toe(s) (acquired), left foot[ICD10: M20.5X2] Diagnosis: Type 2 diabetes mellitus with foot ulcer[ICD10: E11.621] Marcela Ha MD , [facility] CPT-4: 85532 07/18/2016 ([id number]) 57354 EST. PATIENT, LEVEL III Diagnosis: Type 2 diabetes mellitus with hyperglycemia[ICD10: E11.65] Marcela Ha MD, [facility] CPT-4: 64900 06/22/2016 ([id number]) 38972 EST. PATIENT, LEVEL IV Diagnosis: Type 2 diabetes mellitus with hyperglycemia[ICD10: E11.65] Diagnosis: Mixed hyperlipidemia[ICD10: E78.2] Diagnosis: Other hemoglobinopathies[ICD10: D58.2] Marcela Ha MD, [facility] CPT-4: 54512 05/23/2016 ([id number]) 00227 EST. PATIENT, LEVEL IV Diagnosis: Type 2 diabetes mellitus with other specified complication[ICD10: E11.69] Diagnosis: Dehydration[ICD10: E86.0] Marcela Ha MD, [facility] CPT-4: 63204 05/15/2016 ([id number]) OFFICE VISIT, NEW - LEVEL 3 Diagnosis: Allergic contact dermatitis due to plants, except food[ICD10: L23.7] Madeline Ha MD, [facility] CPT-4: 49711 01/20/2016 Plan of Care Planned Activity Notes [...] bronchoscopy. Patient verbalized understanding of plan. 11/12/2018 Patient Education: Patient Medication Summary Completed 11/12/2018 Patient Education: Symbicort - 18-64 - eCopay Completed 11/12/2018 Care Plan: Referral Order SNOMED-CT : [id number] Pending 11/12/2018 Care Plan: Culture Sputum Pending 11/12/2018 Referral: Niko Mantilla Referral Completed 11/04/2018 Visit Plan: Pneumonia, cough - recent diagnosis of Moraxella Cattharalis - with sensitivity to levaquin - will give 2 wks of levaquin since he had improvement but no full resolution of symptoms. 10/30/2018 Appointment: Mel[facility] Ha [facility]el[facility] [facility] appointments only in this slot 10/30/2018 Patient Education: Patient Medication Summary Completed 10/30/2018 Visit Plan: Right hand-joint pain and swelling -negative for gout -treated for cellulitis right 2nd mcp joint -now having difficulty with long finger "locking" -Dr Ha in to evaluate patient and tape index and long finger in place-refer to Dr Mantilla for evaluation 10/24/2018 Appointment: [phone] (30 min) Complex 10/24/2018 Patient Education: Patient Medication Summary Completed 10/24/2018 Care Plan: Referral Order SNOMED-CT : [id number] Pending 10/24/2018 Visit Plan: Hypotension - discussed [...] less controlled. 10/23/2018 Appointment: Melida Ha [facility]el[facility] [phone] [facility] [place] (15 min) Moderate 10/23/2018 Patient Education: Patient [...] and plan. 10/21/2018 App[facility]ment: [phone] [phone] [place] (30 min) Complex 10/21/2018 Patient Education: Patient [...] warmth, discharge. 10/17/2018 Appointment: Madeline Kennedy WPtel: [email or web address] (15 min) Moderate 10/17/2018 Patient Education: Patient [...] acutely worsen. 10/14/2018 Appointment: Marcela Oshea WPtel: [phone] [place] (15 min) Moderate 10/14/2018 Patient Education: Patient Medication Summary Completed 10/14/2018 Care Plan: CHEST X-RAY 2VW FRONTAL&LATL LOINC : 50889-4 Pending 10/14/2018 Visit Plan: URI - Pt [...] spray. 09/30/2018 Appointment: Madeline Kennedy WPtel: [phone] [facility] (15 min) Moderate 09/30/2018 Patient Education: Patient [...] Hgb A1C 09/09/2018 Appointment: Marcela Oshea WPtel: [phone] [phone] (15 min) Moderate 09/09/2018 Patient Education: Patient Medication Summary Completed 09/09/2018 Patient Education: Patient Medication Summary Completed 09/06/2018 Patient Education: Cholesterol Management Completed 09/06/2018 Care Plan: Comp Metabolic Pending 09/06/2018 Care Plan: Cbc With Differential Pending 09/06/2018 Care Plan: %Hba1C LOINC : 51460-5 Pending 09/06/2018 Care Plan: Tsh Pending 09/06/2018 Care Plan: Lipid Pending 09/06/2018 Appointment: Marcela Oshea WPtel: [phone] [phone] [place] (15 min) Moderate 08/26/2018 Appointment: Marcela Oshea WPtel: [phone] (15 min) Moderate 08/23/2018 Visit Plan: Hypertension [...] in clinic. 07/22/2018 Appointment: Melida Ha WPtel: [phone] [facility] (15 min) Moderate 07/22/2018 Patient Education: Patient [...] insomnia. 07/16/2018 Appointment: Marcela Oshea WPtel: [phone] [phone] (30 min) Complex 07/16/2018 Patient Education: Patient Medication Summary Completed 07/16/2018 Visit Plan: cough - improved - notify clinic if symptoms do not completely resolve, or with any questions or concerns. 07/01/2018 Appointment: Madeline Kennedy WPtel: [phone] [facility] (15 min) Moderate 07/01/2018 Patient Education: Patient [...] allergy spray. 06/28/2018 Appointment: Madeline Kennedy WPtel: [phone] [facility] (15 min) Moderate 06/28/2018 Patient Education: Patient Medication Summary Completed 06/28/2018 Patient Education: Patient Medication Summary Completed 06/21/2018 Care Plan: Annabel RICKS ID Pending 06/21/2018 Visit Plan: Diabetes Mellitus - [...] at home. 06/18/2018 Appointment: [facility] [phone] [facility] (15 min) Moderate 06/18/2018 Patient Education: [...] improves. 06/04/2018 Appointment: Melida Ha WPtel: [phone] [facility] (15 min) Moderate 06/04/2018 Patient Education: Patient [...] allow for greater blood glucose control. Joint ixlb-ggslmshp-hkgcbsy- symptoms have improved -stop meloxicam due to upset stomach-call if symptoms return 05/13/2018 Appointment: Marcela Oshea WPtel: [phone] [phone] (30 min) Complex 05/13/2018 Patient Education: Patient Medication Summary Completed 05/13/2018 Visit Plan: Bilateral hip evxa-epukncpj-xbttwke IM injection administered today for c/o continued myalgia/arthralgia. Patient to start taking Meloxicam 15mg PO daily. Advised to return to clinic if symptoms do not improve. 05/02/2018 Appointment: Marcela Oshea WPtel: [phone] [phone] (30 min) Complex 05/02/2018 Patient [...] readings at home. Diabetes Mellitus -check labs Pqduljmx-rkgcdfj-qczz bite-rx for doxycycline-follow up in 2 weeks 04/29/2018 Appointment: Marcela Oshea WPtel: [phone] [phone] [place] (15 min) Moderate 04/29/2018 Patient Education: Patient Medication Summary Completed 04/29/2018 Appointment: Melida Ha WPtel: [phone] [facility] [place] (15 min) Moderate 04/15/2018 Appointment: Marcela Oshea WPtel: [phone] [phone] [place] (30 min) Complex 03/21/2018 Visit Plan: [...] on cymbalta 03/13/2018 Appointment: Melida Ha WPtel: [phone] [facility] [place] (30 min) Complex 03/13/2018 Patient Education: Patient Medication Summary Completed 03/13/2018 Visit Plan: DM-continue same medications-monitor blood sugars routinely as directed -rx for new glucometer and test strips provided Bipolar-currently depressed-patient start on vraylar-follow up in 2 weeks, sooner if needed. Patient and verbalied understanding of plan. Hypotension- stay off losartan 03/07/2018 Appointment: Marcela Oshea WPtel: [phone] [phone] (30 min) Complex 03/07/2018 Patient Education: Patient Medication Summary Completed 03/07/2018 [facility]ment[phone] (15 min) Moderate 03/04/2018 Visit Plan: [...] this patient. 02/28/2018 [facility]: [phone] [place] (30 min) Complex 02/28/2018 Patient Education: [...] improving. 02/13/2018 Appointment: Madeline [phone] (15 min) Moderate 02/13/2018 Patient Education: Patient Medication Summary Completed 02/13/2018 Referral: Sun Glynn Patient informed. Referral info faxed. Completed Visit Plan: DM-weight loss-not checking blood sugars- patient sent for labs today HTN-low qjyfq-hcowhco-zaycl labs Callus of foot and fissue of heel-refer to Dr Glynn for evaluation Esophageal Reflux - the patient has been counseled against excessive intake of caffeine, spicy foods, peppermint , and cinnamon - all of which can exacerbate esophageal reflux. The patient is to take medications as prescribed and call the office if the symptoms are not improving. 01/29/2018 Appointment: Marcela Oshea WPtel[phone] [place] (30 min) Complex 01/29/2018 Patient Education: Patient Medication Summary Completed 01/29/2018 Care Plan: Comp Metabolic Cancelled 01/29/2018 Care Plan: Cbc With Differential Cancelled 01/29/2018 Care Plan: %Hba1C LOINC : 91341-0 Cancelled 01/29/2018 Care Plan: Referral Order SNOMED-CT : [id number] Cancelled 01/29/2018 Visit Plan: Fatigue, malaise, joint [...] concerns. 08/27/2017 Appointment: [phone] [facility] [place] (15 min) Moderate 08/27/2017 Patient Education: [...] today - 08/16/2017 Appointment: Melida Ha WPtel: [phone] [facility] (30 min) Complex 08/16/2017 Patient Education: Patient Medication Summary Completed 08/16/2017 Patient Education: Obesity Completed 08/16/2017 Appointment: Madeline Kennedy WPtel: [phone] [facility] (30 min) Complex 08/07/2017 Visit Plan: Shingles [...] considered contagious. 07/26/2017 Appointment: Madeline Kennedy WPtel: [phone] [facility] [place] (15 min) Moderate 07/26/2017 Patient Education: Patient Medication Summary Completed 07/26/2017 Visit Plan: Cellulitis right foot-cultured today in the office-home health to reapply wound vac--appt with wound care on to evaluate for debridement- 07/03/2017 Appointment: Marcela Oshea WPtel: [phone] [phone] [place] (30 min) Complex 07/03/2017 Patient Education: Patient Medication Summary Completed 07/03/2017 Visit Plan: Abrasion left arm - Pt was instructed to keep the wound clean, wash with antibacterial soap, use triple antibiotic ointment, call if redness, pustular drainage, or any other acute concerns. 06/29/2017 Appointment: Marcela Oshea WPtel: [facility] (15 min) Moderate 06/29/2017 Patient Education: Patient [...] of plan. 06/18/2017 Appointment: Marcela Oshea WPtel: [facility] [address] (15 min) Moderate 06/18/2017 Patient Education: Patient [...] diet-start prilosec 06/07/2017 Appointment: Marcela Oshea WPtel: [facility]1 [address] (10 min) Simple 06/07/2017 Patient Education: [...] bite-continue doxycycline 05/17/2017 Appointment: Marcela Oshea WPtel: [address] [place], [place] [phone] (30 min) Complex 05/17/2017 Patient Education: Patient [...] if you want blue minesh called into [facility]. 05/04/2017 Appointment: Marcela Oshea WPtel: [address] [place], [place] [phone] (30 min) Complex 05/04/2017 Patient Education: Patient [...] home. Cough-resolved 03/15/2017 Appointment: Marcela Oshea WPtel: [facility]2 [phone] (15 min) Moderate 03/15/2017 Patient Education: Patient Medication Summary Completed 03/15/2017 Appointment: Marcela Oshea WPtel: [facility]8 [phone] (30 min) Complex 03/12/2017 Visit [...] as discussed 02/16/2017 Appointment: Marcela Oshea WPtel: [address] [place] [address] (15 min) Moderate 02/16/2017 Patient Education: Patient [...] less controlled. 02/12/2017 Appointment: Marcela Oshea WPtel: [facility] [place] [address] (30 min) Complex 02/12/2017 Patient Education: Patient Medication Summary Completed 02/12/2017 Appointment: Marcela Oshea WPtel: [address] [place], [place] [phone] [place] [address] (30 min) Complex 02/06/2017 Visit Plan: Diabetes [...] will consider 02/05/2017 Appointment: Marcela Oshea WPtel: [phone] (30 min) Complex 02/05/2017 Patient Education: Patient Medication Summary Completed 02/05/2017 Appointment: Marcela Oshea WPtel: [phone] (30 min) Complex 01/30/2017 Visit Plan: Acute confusion-uncontrolled diabetes- chronically noncompliant with treatment and stopped his insulin several months ago-r/o stroke vs DKA-Dr Ha in to evaluate patient-plan to admit for further work up and treatment-patient's called and she transported him to the hospital 01/29/2017 Appointment: Marcela Oshea WPtel: [phone] (30 min) Complex 01/29/2017 Patient Education: Patient Medication Summary Completed 01/29/2017 Patient Education: Obesity Completed 01/29/2017 Visit Plan: Right foot pain-MRI shows foreign body-appt with Dr Grewal for evaluation on Sunday. 10/13/2016 Appointment: Marcela Oshea WPtel: [facility]5 [phone] [place] (15 min) Moderate 10/13/2016 Patient Education: Patient Medication Summary Completed 10/13/2016 Appointment: Marcela Oshea WPtel: [phone] [place] (30 min) Complex 10/12/2016 Visit Plan: Right foot luiw-islqkrwe-okvri washer dropped on foot-xray negative but pain continues to increase-recommend MRI of foot for further evaluation-refer to wound care for lesions on right foot, patient has diabetes and history of osteomyelitis-culture obtained today-continue oral abx- follow up in the office on , sooner if needed 10/09/2016 Visit Plan: Right foot zbaz-azdfbzhx-jxhcw washer dropped on foot-xray negative but pain continues to increase-recommend MRI of foot for further evaluation-refer to wound care for lesions on right foot, patient has diabetes and history of osteomyelitis-culture obtained today-continue oral abx- follow up in the office on , sooner if needed 10/09/2016 Visit Plan: Right foot opii-tnrmbqbq-zlfyl washer dropped on foot-xray negative but pain continues to increase-recommend MRI of foot for further evaluation-refer to wound care for lesions on right foot, patient has diabetes and history of osteomyelitis-culture obtained today-continue oral abx- follow up in the office on , sooner if needed 10/09/2016 Appointment: Marcela Oshea WPtel: [phone] (30 min) Complex 10/09/2016 Patient Education: Patient Medication Summary Completed 10/09/2016 Visit Plan: Cellulitis - continue with oral antibiotics as previously directed, return to clinic as previously directed, call for acute change in symptoms, worsening redness, warmth, discharge. 10/06/2016 Appointment: Marcela Oshea WPtel: [address] [place], [place] [phone] (10 min) Simple 10/06/2016 Patient Education: Patient Medication Summary Completed 10/06/2016 Appointment: Marcela Oshea WPtel: [address] [place], [place] [phone] (30 min) Complex 08/24/2016 Referral: Sun Glynn Referral Completed 07/21/2016 Visit Plan: Low back pain- history of spinal fusion- patient for xray lumbar spine-RX sent to [facility] pharmacy and instructed on use-topical voltaren samples provided and instructed on use. Ok to use tylenol as needed as well. The patient is to call the office if the pain is worsening or does not improve. Pressure ulcer left 4th toe-refer to Dr Glynn for evaluation 07/18/2016 Appointment: Marcela Oshea WPtel: [facility]9 [phone] (30 min) Complex 07/18/2016 Patient Education: Patient Medication Summary Completed 07/18/2016 Patient Education: Obesity Completed 07/18/2016 Care Plan: Referral Order SNOMED-CT : [id number] Cancelled 07/18/2016 Visit Plan: Diabetes Mellitus - [...] control. 06/22/2016 App[facility]ment: [facility]el[phone] (30 min) Complex 06/22/2016 Patient Education: [...] today 05/23/2016 Appointment: Marcel[facility]el[phone] (30 min) Complex 05/23/2016 Patient Education: [...] of plan. 05/15/2016 Appointment: Marcel[facility] Oshea WPtel[phone] (15 min) Moderate 05/15/2016 Patient Education: [...] Patient Education: Obesity Completed 01/20/2016 Referral: Niko aMntilla Referral Appointment Requested Referral: Andrew Cross Referral Appointment Requested Referral: Sun Glynn Referral Initiated Referral: Sun Glynn Referral Appointment Requested Instructions Comment . Right foot pain-MRI shows foreign body-appt with Dr Grewal for evaluation on Sunday. . cough - improved - notify clinic [...] voltaren gel ulcer left 4th toe-refer to [facility] . Low back pain- history of spinal fusion-patient for xray lumbar spine-RX sent to [facility] pharmacy and instructed on use-topical [...] if you want anai edge called into [facility]. REPEAT LABS BEFORE YOUR NEXT APPOINTMENT [...] greater blood glucose control. Tick bite-continue doxycycline CT Chest sputum culture symbicort 2 puffs [...] a bronchoscopy. Patient verbalized understanding of plan. breathing treatments 3 times a day x [...] not improved, or if symptoms acutely worsen. REPEAT CBC Toujeo 10 units daily . [...] blood glucose control. Elevated Hgb-check CBC today steroid shot today flonase and mucinex over [...] change in blood pressure readings at home. continue oral antibiotic start using topical antibiotic ointment to scabbed areas and cover with dressing follow up , sooner if needed refer to wound care mri left foot due to increased pain -concern for fracture from injury . Right foot mgnv-tuontrgz-hzjwv washer dropped on foot-xray negative but pain [...] for fracture from injury . Right foot phuw-zmpltyru-bwehg washer dropped on foot-xray negative but pain [...] for fracture from injury . Right foot rbdv-fsnnidqy-ibbwj washer dropped on foot-xray negative but pain continues to increase-recommend MRI of foot for further evaluation-refer to wound care for lesions on right foot, patient has diabetes and history of osteomyelitis-culture obtained today-continue oral abx-follow up in the office on , sooner if needed . Bilateral hip nafc-iuuznyrt-gvurpvt IM injection administered today for c/o continued myalgia/arthralgia. Patient to start taking Meloxicam 15mg PO daily. Advised to return to clinic if symptoms do not improve. . DM-weight loss-not checking blood sugars-patient sent for labs today HTN-low hbawe-slvfsvj-iyyfa labs Callus of foot and fissue of [...] readings are starting to become less controlled. Fmotpxubs-kdovagdg-exsmhmwl to monitor Generalized weakness-refer for PT-patient refuses [...] understanding of plan. Hypotension-stay off losartan . Diabetes Mellitus - I have recommended [...] to allow for greater blood glucose control. STOP MELOXICAM CONTINUE LYRICA 50 UNITS TOUJEO [...] allow for greater blood glucose control. Joint fgfa-xgmbqfyp-bpayoqi-symptoms have improved -stop meloxicam due to upset [...] she transported him to the hospital . Mild ecchymosis with faint erythema - pt is to continue his levaquin that was previously prescribed - The patient was instructed in appropriate wound care. The patient was instructed to use the antibiotic as per RX. The patient is to call for any change in symptoms, increase in size of the lesion, increase in pain, worsening redness, warmth, discharge. decrease the valsartan to 1/2 pill daily [...] not improve or if they worsen. . Insomnia - Pt has been [...] readings at home. Diabetes Mellitus -check labs Ocomgcye-uwbsaif-iphk bite-rx for doxycycline-follow up in 2 weeks [...] do not show improvement. DM-check Hgb A1C RECOMMEND PROBIOTICS TWICE DAILY FLU SWAB ROCEPHIN [...] office if the symptoms are not improving. DOXYCYCLINE 100MG TWICE DAILY TORADOL INJECTION STOP [...]
--- OUTSIDE RECORDS SUMMARY | 2019-01-01 14:40 | XMS REPORT | CCD ---
Author Author Madeline Kennedy MD, [facility] Address [address] [place] [address] Phone Care Team Providers Care Special Agent In Charge Name Role Phone PP Unavailable CCM Unavailable Summary Purpose Interface Exchange Insurance Providers Payer name Policy type / Coverage type Covered libertarian ID Effective Begin Date Effective End Date Blue Cross Blue Shield [facility] Blue Cross/Blue Shield [id number] Unknown Family history Father Diagnosis Age At Onset Hyperlipidemia Unknown Heart Attack Unknown Mother Diagnosis Age At Onset Hypertension Unknown Social History Social History Element Codes Description Effective Dates Marital status Unknown Mignon 01/20/2016 Number of children Unknown 4 01/20/2016 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/[address]: 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 Never smoker 01/20/[address]: 043541032 Never drinks alcohol 01/20/2016 Allergies, Adverse Reactions, [...] 160 mcg-4.5 mcg/actuation HFA aerosol inhaler RxNorm: 0452332 2 Puff(s) INH BID 11/12/2018 12/11/2018 Active albuterol sulfate 2.5 mg/3 mL (0.083 %) solution for nebulization RxNorm: 429987 3 Milliliter(s) INH UD 11/07/2018 No Stop Date Active azithromycin 500 mg tablet RxNorm: 953837 500mg on day 1 then 250 mg daily x 4 more day Tablet(s) PO 11/07/20182018 Inactive 500mg on day 1 and then 250mg daily 2-4 cefdinir 300 mg capsule RxNorm: 827219 1 Capsule(s) PO BID 01/201911/13/2018 Active azithromycin 500 mg tablet RxNorm: 993958 500mg on day 1 then 250 mg daily x 4 more day Tablet(s) PO 11/07/20182018 Inactive 500mg on day 1 and then 250mg daily 2-4 cefdinir 300 mg capsule RxNorm: 940816 1 Capsule(s) PO BID 01/201911/06/2018 Inactive Levaquin 500 mg tablet RxNorm: 281681 1 Tablet(s) PO daily TAKE ONE TABLET BY MOUTH DAILY UNTIL GONE 10/31/20182018 Active Levaquin 500 mg tablet RxNorm: 356071 1 Tablet(s) PO daily 11/12/2018 Inactive valsartan 80 mg tablet RxNorm: 028467 1/2 Tablet(s) PO daily 04/20/2019 Active doxycycline hyclate 100 mg tablet RxNorm: 2392905 1 Tablet(s) PO BID 10/21/2018 10/27/2018 Inactive ketorolac 60 mg/2 mL intramuscular solution RxNorm: 4213398 Milliliter(s) IM 10/21/2018 10/21/2018 Inactive Levaquin 500 mg tablet RxNorm: 015193 1 Tablet(s) PO daily 10/31/2018 Inactive Tessalon Perles 100 mg capsule RxNorm: 373468 1-2 Capsule(s) PO TID PRN 10/14/2018 No Stop Date Active albuterol sulfate 2.5 mg/3 mL (0.083 %) solution for nebulization RxNorm: 355929 3 Milliliter(s) INH UD 10/14/201812/2018 Inactive Levaquin 500 mg tablet RxNorm: 499502 1 Tablet(s) PO daily 08/201810/16/2018 Inactive Coreg 6.25 mg tablet RxNorm: 745193 TAKE ONE TABLET BY MOUTH TWICE A DAY 09/30/2018 03/28/2019 Active albuterol sulfate 2.5 mg/3 mL (0.083 %) solution for nebulization RxNorm: 658415 3 Milliliter(s) INH UD 09/30/201807/2018 Inactive Kenalog 40 mg/mL suspension for injection RxNorm: 5109912 1.5 Milliliter(s) Inj 09/30/2018 09/30/2018 Inactive Keflex 500 mg capsule RxNorm: 972034 1 Capsule(s) PO TID 201710/03/2018 Inactive prednisone 20 mg tablet RxNorm: 063569 2 Tablet(s) PO daily 09/29/2018 Inactive Kenalog 40 mg/mL suspension for injection RxNorm: 6811688 Milliliter(s) Inj 09/11/2018 09/11/2018 Inactive Zyrtec 10 mg tablet RxNorm: 0819539 1 Tablet(s) PO daily 09/0910/08/2018 Inactive Keflex 500 mg capsule RxNorm: 913413 1 Capsule(s) PO TID 201709/15/2018 Inactive Tresiba FlexTouch U-200 insulin 200 unit/mL (3 mL) subcutaneous pen RxNorm: 7049828 50 Unit(s) SQ daily 08/30/2018 08/29/2018 Inactive please give him 30 day supply Tresiba FlexTouch U-200 insulin 200 unit/mL (3 mL) subcutaneous pen RxNorm: 6200993 50 Unit(s) SQ daily 08/30/2018 09/28/2018 Inactive please give him 30 day supply Novolog Flexpen U-100 Insulin aspart 100 unit/mL subcutaneous RxNorm: 2545705 8 Unit(s) SQ AC 08/13/2018 No Stop Date Active Novolog Flexpen U-100 Insulin aspart 100 unit/mL subcutaneous RxNorm: 6222239 8 Unit(s) SQ AC 07/22/20182017 Inactive this is an update on his medication Novolog Flexpen U-100 Insulin aspart 100 unit/mL subcutaneous RxNorm: 4192985 12 Unit(s) SQ AC 07/05/20182017 Inactive this is an update on his medication Toujeo SoloStar U-300 Insulin 300 unit/mL (1.5 mL) subcutaneous pen RxNorm: 3135835 INJECT 50 UNITS UNDER THE SKIN DAILY 07/01/2018 08/29/2018 Inactive Mucinex 600 mg tablet, extended release RxNorm: 006165 1 Tablet(s) PO BID 06/28/2018 07/04/2018 Inactive Zofran 4 mg tablet RxNorm: 452418 1 Tablet(s) PO TID as needed nausea 06/28/2018 07/02/2018 Inactive Kenalog 40 mg/mL suspension for injection RxNorm: 0785239 Milliliter(s) Inj 06/28/2018 06/28/2018 Inactive Flonase Allergy Relief 50 mcg/actuation nasal spray, suspension RxNorm: 2042400 1 [place] NASAL BID 06/28/20182017 Inactive Lyrica 50 mg capsule RxNorm: 206949 Capsule(s) PO daily 201707/07/2018 Inactive Novolog Flexpen U-100 Insulin aspart 100 unit/mL subcutaneous RxNorm: 3146831 10 Unit(s) SQ AC 06/18/20182017 Inactive this is an update on his medication Lasix 20 mg tablet RxNorm: 174940 1 Tablet(s) PO BIW 201707/02/2018 Inactive atorvastatin 80 mg tablet RxNorm: 318986 1 Tablet(s) PO QHS 04/201812/06/2018 Active clonazepam 1 mg tablet RxNorm: 930199 2 Tablet(s) PO HS 201706/04/2019 Active clonazepam 1 mg tablet RxNorm: 799604 2 Tablet(s) PO HS as needed 06/10/2018 06/09/2018 Inactive Lyrica 50 mg capsule RxNorm: 007097 Capsule(s) PO daily 201707/08/2018 Inactive Lasix 20 mg tablet RxNorm: 466937 1 Tablet(s) PO TIW 201706/11/2018 Inactive Toujeo SoloStar U-300 Insulin 300 unit/mL (1.5 mL) subcutaneous pen RxNorm: 8927842 50 Unit(s) SQ daily 05/07/2018 06/30/2018 Inactive meloxicam 15 mg tablet RxNorm: 406667 15 Milligram(s) PO daily 05/02/2018 05/12/2018 Inactive ketorolac 30 mg/mL injection solution RxNorm: 380373 2 Milliliter(s) Inj 05/02/2018 05/02/2018 Inactive Toujeo SoloStar U-300 Insulin 300 unit/mL (1.5 mL) subcutaneous pen RxNorm: 5439750 45 Unit(s) daily 04/29/2018 Inactive clonazepam 1 mg tablet RxNorm: 738345 1 Tablet(s) PO Q8 as needed 04/29/2018 06/09/2018 Inactive doxycycline hyclate 100 mg tablet RxNorm: 8198865 1 Tablet(s) PO BID 04/29/2018 05/12/2018 Inactive Cymbalta 30 mg capsule,delayed release RxNorm: 344872 1 Capsule(s) PO QAM 03/13/2018 10/08/2018 Inactive Lexapro 10 mg tablet RxNorm: 735247 1 Tablet(s) PO QPM 201703/03/2018 Inactive Toujeo SoloStar U-300 Insulin 300 unit/mL (1.5 mL) subcutaneous pen RxNorm: 3878348 20 Unit(s) daily 02/28/2018 Inactive Protonix 40 mg tablet,delayed release RxNorm: 758322 1 Tablet(s) PO daily 01/29/2018 06/09/2018 Inactive clonazepam 1 mg tablet RxNorm: 441838 1 Tablet(s) PO Q8 as needed 12/12/2017 03/10/2018 Inactive Tamiflu 75 mg capsule RxNorm: 722490 1 Capsule(s) PO BID 201712/03/2017 Inactive doxycycline hyclate 100 mg capsule RxNorm: 3336218 1 Capsule(s) PO BID 09/07/2017 09/20/2017 Inactive doxycycline hyclate 100 mg capsule RxNorm: 4915876 1 Capsule(s) PO BID 08/27/2017 09/06/2017 Inactive prednisone 20 mg tablet RxNorm: 074150 2 Tablet(s) PO daily 08/31/2017 Inactive clopidogrel 75 mg tablet RxNorm: 092159 1 Tablet(s) PO daily 06/09/2018 Inactive atorvastatin 40 mg tablet RxNorm: 291020 1 Tablet(s) PO QHS 02/27/2018 Inactive losartan 25 mg tablet RxNorm: 961334 TAKE ONE TABLET BY MOUTH DAILY 08/22/2017 06/09/2018 Inactive Toujeo SoloStar 300 unit/mL (1.5 mL) subcutaneous insulin pen RxNorm: 9374861 45 Unit(s) daily 08/17/2017 08/20/2017 Inactive mupirocin 2 % topical ointment RxNorm: 917834 1 Application TOP TID to the lesions on chest 08/16/2017 08/25/2017 Inactive Toujeo SoloStar 300 unit/mL (1.5 mL) subcutaneous insulin pen RxNorm: 5891327 40 Unit(s) daily 08/16/2017 08/16/2017 Inactive valacyclovir 1 gram tablet RxNorm: 265619 1 Tablet(s) PO TID 08/01/2017 Inactive clonazepam 1 mg tablet RxNorm: 727329 1 Tablet(s) PO Q8 as needed 07/03/2017 09/30/2017 Inactive Levaquin 500 mg tablet RxNorm: 218152 1 Tablet(s) PO daily 06/25/2017 Inactive Levaquin 500 mg tablet RxNorm: 328212 1 Tablet(s) PO daily 06/21/2017 Inactive losartan 25 mg tablet RxNorm: 999646 1 Tablet(s) PO daily 201608/16/2017 Inactive nystatin 100,000 unit/mL oral suspension RxNorm: 954083 5 Milliliter(s) PO QID Swish et swallow 06/18/2017 06/17/2017 Inactive nystatin 100,000 unit/mL oral suspension RxNorm: 096401 5 Milliliter(s) PO QID Swish et swallow 06/18/2017 06/27/2017 Inactive Cipro 500 mg tablet RxNorm: 844561 1 Tablet(s) PO BID 201606/18/2017 Inactive Cipro 500 mg tablet RxNorm: 931950 1 Tablet(s) PO BID 201606/11/2017 Inactive Toujeo SoloStar 300 unit/mL (1.5 mL) subcutaneous insulin pen RxNorm: 3463630 INJECT 10 UNITS UNDER THE SKIN DAILY 06/12/2017 08/15/2017 Inactive Keflex 500 mg capsule RxNorm: 922981 1 Capsule(s) PO TID 201606/13/2017 Inactive doxycycline hyclate 100 mg capsule RxNorm: 8121797 1 Capsule(s) PO BID 05/17/2017 05/21/2017 Inactive doxycycline hyclate 100 mg capsule RxNorm: 0972327 1 Capsule(s) PO BID 05/11/2017 05/16/2017 Inactive losartan 25 mg tablet RxNorm: 215913 1 Tablet(s) PO daily 201606/17/2017 Inactive atorvastatin 40 mg tablet RxNorm: 385925 1 Tablet(s) PO daily 03/01/2017 08/23/2017 Inactive clopidogrel 75 mg tablet RxNorm: 317914 1 Tablet(s) PO daily 08/23/2017 Inactive Flonase Allergy Relief 50 mcg/actuation nasal spray, suspension RxNorm: 4355149 2 [place] NASAL daily 02/16/20172016 Inactive Augmentin 875 mg-125 mg tablet RxNorm: 584169 1 Tablet(s) PO BID 02/16/2017 02/22/2017 Inactive GET PROBIOTIC TO TAKE WHILE ON ABX Tamiflu 75 mg capsule RxNorm: 587291 1 Capsule(s) PO BID 201602/20/2017 Inactive ceftriaxone 500 mg solution for injection RxNorm: 8159132 1 Milliliter(s) Inj 02/16/2017 02/16/2017 Inactive Kenalog 40 mg/mL suspension for injection RxNorm: 6205250 1 Milliliter(s) Inj 02/16/2017 02/16/2017 Inactive Toujeo SoloStar 300 unit/mL (1.5 mL) subcutaneous insulin pen RxNorm: 6971362 25 Unit(s) SQ QAM 02/12/2017 06/10/2017 Inactive Toujeo SoloStar 300 unit/mL (1.5 mL) subcutaneous insulin pen RxNorm: 0958947 10 Unit(s) SQ QAM 02/05/2017 02/11/2017 Inactive lisinopril 10 mg tablet RxNorm: 111798 1 Tablet(s) PO daily 02/28/2017 Inactive atorvastatin 40 mg tablet RxNorm: 543184 1 Tablet(s) PO daily 02/01/2017 02/28/2017 Inactive doxycycline hyclate 100 mg capsule RxNorm: 2070458 1 Capsule(s) PO BID 02/01/2017 02/10/2017 Inactive clonazepam 1 mg tablet RxNorm: 057074 1 Tablet(s) PO Q8 as needed 10/09/2016 01/05/2017 Inactive ceftriaxone 1 gram solution for injection RxNorm: 9619200 Inj 10/06/2016 10/06/2016 Inactive cyclobenzaprine 10 mg tablet RxNorm: 994305 1/2-1 Tablet(s) PO TID PRN 07/18/2016 01/28/2017 Inactive clonazepam 1 mg tablet RxNorm: 747323 1 Tablet(s) PO Q8 as needed 05/31/2016 05/29/2016 Inactive clonazepam 1 mg tablet RxNorm: 443253 1 Tablet(s) PO Q8 as needed 05/31/2016 08/28/2016 Inactive Toujeo SoloStar 300 unit/mL (1.5 mL) subcutaneous insulin pen RxNorm: 7978313 10 Unit(s) SQ daily 05/23/2016 01/28/2017 Inactive Crestor 10 mg tablet RxNorm: 233692 1 Tablet(s) PO QHS 201501/28/2017 Inactive Crestor 10 mg tablet RxNorm: 227922 1 Tablet(s) PO QHS 201505/18/2016 Inactive clonazepam 1 mg tablet RxNorm: 453807 1 Tablet(s) PO Q8 as needed 04/25/2016 05/30/2016 Inactive prednisone 20 mg tablet RxNorm: 267082 3 Tablet(s) PO daily 06/201602/10/2016 Inactive prednisone 20 mg tablet RxNorm: 184946 3 Tablet(s) PO daily 06/201605/14/2016 Inactive Kenalog 40 mg/mL suspension for injection RxNorm: 4514653 Milliliter(s) Inj 01/20/2016 01/20/2016 Inactive aspirin 81 mg tablet,delayed release RxNorm: 237939 1 Tablet(s) PO daily No Start Date Active Brilinta 90 mg tablet RxNorm: 0802629 1 Tablet(s) PO BID No Start Date Active acetaminophen 500 mg tablet RxNorm: 838641 1-2 Tablet(s) PO as needed No Start Date Active clopidogrel 75 mg tablet RxNorm: 041900 1 Tablet(s) PO daily No Start Date 02/28/2017 Inactive Novolog Flexpen U-100 Insulin aspart 100 unit/mL subcutaneous RxNorm: 0071416 5 units with breakfast lunch and 10 supper Unit(s) SQ No Start Date 06/17/2018 Inactive clonazepam 1 mg tablet RxNorm: 686911 1 Tablet(s) PO QHS No Start Date 04/24/2016 Inactive Coreg 6.25 mg tablet RxNorm: 430245 1 Tablet(s) PO BID No Start Date 09/29/2018 Inactive acyclovir 400 mg tablet RxNorm: 724265 2 Tablet(s) PO 5x daily No Start Date 02/28/2017 Inactive Lyrica 50 mg capsule RxNorm: 719454 Capsule(s) PO BID No Start Date 06/09/2018 Inactive Vraylar 3 mg capsule RxNorm: 3785022 1 Capsule(s) PO daily No Start Date 03/12/2018 Inactive valsartan 80 mg tablet RxNorm: 638206 1 Tablet(s) PO daily No Start Date 10/22/2018 Inactive Medication Administered Medication Codes Instructions Start Date Status ketorolac 60 mg/2 mL intramuscular solution RxNorm: 0619764 Milliliter 10/21/2018 No longer Active Kenalog 40 mg/mL suspension for injection RxNorm: 0983121 1.5Milliliter 09/30/2018 No longer Active Kenalog 40 mg/mL suspension for injection RxNorm: 4477372 Milliliter 09/11/2018 No longer Active Kenalog 40 mg/mL suspension for injection RxNorm: 1566696 Milliliter 06/28/2018 No longer Active ketorolac 30 mg/mL injection solution RxNorm: 868279 2Milliliter 05/02/2018 No longer Active ceftriaxone 500 mg solution for injection RxNorm: 7804070 1Milliliter 02/16/2017 No longer Active Kenalog 40 mg/mL suspension for injection RxNorm: 7131639 1Milliliter 02/16/2017 No longer Active ceftriaxone 1 gram solution for injection RxNorm: 8607746 10/06/2016 No longer Active Kenalog 40 mg/mL suspension for injection RxNorm: 7823821 Milliliter 01/20/2016 No longer Active Immunizations Vaccine [...] Item Item Code Result Date Culture Sputum 506479 LOWER RESPIRATORY TRACT CULTURE SEE NOTES 10/16/2018 LIPID GRP [id number] CHOLESTEROL TNP:Duplicate Order 09/10/2018 LIPID GRP 2190716 Triglyceride TNP:Duplicate Order 2017 LIPID GRP HDL CHOLESTEROL TNP:Duplicate Order 2017 LIPID GRP 9753792 Chol/HDL Ratio TNP:Duplicate Order 2017 LIPID GRP 4241834 LDL Cholesterol TNP:Duplicate Order 2017 A1C HPLC 7941128 Hgb A1c 08446-6 TNP:Duplicate Order 2017 C Diff An [id number] GDH TNP:Lab Request 06/22/2018 C Diff An [id number] Toxin A/B TNP:Lab Request 06/22/2018 C Diff An [id number] C Diff Analyzer TNP:Lab Request 2017 C Diff An [id number] IC OK? TNP:Lab Request 06/22/2018 CBC 4708551 WBC 6.4 10e9/L 05/02/2018 CBC 7521446 RBC 5.60 10e12/L 05/02/2018 CBC 0823989 HEMOGLOBIN 17.0 g/dL 05/02/2018 CBC 8675213 HEMATOCRIT 48.0 % 05/02/2018 CBC 0446452 MCV 85.7 fL 05/02/2018 CBC 9883052 MCH 30.4 pg 05/02/2018 CBC 1017994 MCHC 35.4 g/dL 05/02/2018 CBC 1198560 PLATELET COUNT 166 10e9/L 05/02/2018 CBC 6026416 Mean Plt Volume 11.6 fL 05/02/2018 CBC 7645366 Neut Auto 48.6 % 05/02/2018 CBC 0519143 Lymph Auto 41.7 % 05/02/2018 CBC 4007354 [place] Auto 8.1 % 05/02/2018 CBC 2710044 RDW 13.1 % 05/02/2018 CBC 9049581 Eos Auto 1.1 % 05/02/2018 CBC 3479230 Baso Auto 0.5 % 05/02/2018 CBC 3512917 Neutrophil Abs 3.11 10e9/L 05/02/2018 CBC 9167397 Lymphocyte Abs 2.67 10e9/L 05/02/2018 CBC 6059002 Monocyte Abs 0.52 10e9/L 05/02/2018 CBC 4385736 Eosinophil Abs 0.07 10e9/L 05/02/2018 CBC 7706612 RDW-SD 40.0 fL 05/02/2018 CBC 9412933 Basophil Abs 0.03 10e9/L 05/02/2018 CHEM 14 2407662 AST 17 U/L 05/02/2018 CHEM 14 1370803 ALT 17 U/L 05/02/2018 CHEM 14 8688247 BUN 17 mg/dL 05/02/2018 CHEM 14 8703716 ALBUMIN 4.0 g/dL 05/02/2018 CHEM 14 5275717 CHLORIDE 97 mmol/L 05/02/2018 CHEM 14 4658530 Bili Total 0.9 mg/dL 05/02/2018 CHEM 14 7695667 ALK PHOS 67 U/L 05/02/2018 CHEM 14 6547737 SODIUM 135 mmol/L 05/02/2018 CHEM 14 7912173 CREATININE 1.18 mg/dL 05/02/2018 CHEM 14 2546698 CALCIUM 9.4 mg/dL 05/02/2018 CHEM 14 9375287 POTASSIUM 4.4 mmol/L 05/02/2018 CHEM 14 5078957 TOTAL PROTEIN 6.9 g/dL 05/02/2018 CHEM 14 6817109 GLUCOSE 316 mg/dL 05/02/2018 CHEM 14 9852960 Bicarbonate 29 mmol/L 05/02/2018 CHEM 14 0526894 AGAP 9 mmol/L 05/02/2018 MEAN GLUC 9774948 Calc Mean Gluc 283 mg/dL 05/02/2018 A1C HPLC 8944115 Hgb A1c 30732-7 11.5 % 05/02/2018 GFR CALC 1480519 GFR Non Afr Amr >60 mL/min 05/02/2018 GFR CALC 2541918 GFR Afr Amr >60 mL/min 05/02/2018 [facility] Rickey [id number] JADE Rickey Complete 02/28/2018 GFR CALC 2565087 GFR Non Afr Amr >60 mL/min 02/28/2018 GFR CALC 2466058 GFR Afr Amr >60 mL/min 02/28/2018 UA W/CII 2081072 UA Urine Appear Normal 02/28/2018 UA W/CII 7753671 UA Protein 1+ 02/28/2018 UA W/CII 6768149 UA Hemoglobin Negative 02/28/2018 UA W/CII 5421681 UA Glucose 4+ 02/28/2018 UA W/CII 1366098 UA Ketones Trace 02/28/2018 UA W/CII 5451529 UA pH 5.5 02/28/2018 UA W/CII 5772383 U Spec [place] 1.015 02/28/2018 UA W/CII 0096894 UA Bilirubin Negative 02/28/2018 UA W/CII 2259605 UA Nitrite NEG 02/28/2018 UA W/CII 9340842 UA Leuk Esteras Negative 02/28/2018 MICR 6521769 UA WBC/hpf 1 02/28/2018 MICR 1012316 UA RBC hpf 2 02/28/2018 MICR 8115280 UA WBC auto 3.8 /uL 02/28/2018 MICR 1903695 UA RBC auto 12.2 /uL 02/28/2018 MICR 9117320 UA SQ EPI auto 2.3 /uL 02/28/2018 MICR 8583875 UA H Cast auto 0.10 /uL 02/28/2018 CBC 3401059 WBC 6.4 10e9/L 02/28/2018 CBC 2895188 RBC 5.51 10e12/L 02/28/2018 CBC 7442046 HEMOGLOBIN 16.7 g/dL 02/28/2018 CBC 1582342 HEMATOCRIT 46.9 % 02/28/2018 CBC 9839847 MCV 85.1 fL 02/28/2018 CBC 6155780 MCH 30.3 pg 02/28/2018 CBC 3151267 MCHC 35.6 g/dL 02/28/2018 CBC 1049596 PLATELET COUNT 173 10e9/L 02/28/2018 CBC 0980337 Mean Plt Volume 11.6 fL 02/28/2018 CBC 2673700 Neut Auto 51.8 % 02/28/2018 CBC 6248422 Lymph Auto 39.9 % 02/28/2018 CBC 4262869 [place] Auto 7.3 % 02/28/2018 CBC 3399614 Eos Auto 0.8 % 02/28/2018 CBC 4640865 RDW 13.3 % 02/28/2018 CBC 2576960 Baso Auto 0.2 % 02/28/2018 CBC 7352760 Neutrophil Abs 3.32 10e9/L 02/28/2018 CBC 8268263 Lymphocyte Abs 2.55 10e9/L 02/28/2018 CBC 2864725 Monocyte Abs 0.47 10e9/L 02/28/2018 CBC 1636679 Eosinophil Abs 0.05 10e9/L 02/28/2018 CBC 5816310 Basophil Abs 0.01 10e9/L 02/28/2018 CBC 1981151 RDW-SD 40.8 fL 02/28/2018 CHEM 14 4815650 AST 17 U/L 02/28/2018 CHEM 14 3431991 ALT 17 U/L 02/28/2018 CHEM 14 2795742 BUN 20 mg/dL 02/28/2018 CHEM 14 4611074 ALBUMIN 4.1 g/dL 02/28/2018 CHEM 14 6419346 CHLORIDE 97 mmol/L 02/28/2018 CHEM 14 2653900 Bili Total 1.3 mg/dL 02/28/2018 CHEM 14 1061158 ALK PHOS 78 U/L 02/28/2018 CHEM 14 8345655 SODIUM 135 mmol/L 02/28/2018 CHEM 14 8865506 CREATININE 1.09 mg/dL 02/28/2018 CHEM 14 2171166 CALCIUM 9.6 mg/dL 02/28/2018 CHEM 14 0673251 POTASSIUM 3.8 mmol/L 02/28/2018 CHEM 14 9188239 TOTAL PROTEIN 7.3 g/dL 02/28/2018 CHEM 14 3999647 GLUCOSE 349 mg/dL 02/28/2018 CHEM 14 1420932 Bicarbonate 29 mmol/L 02/28/2018 CHEM 14 2159692 AGAP 9 mmol/L 02/28/2018 Dora Spotted Fever Igg/Igm 667769 FEI MT SPOTTED FEVER IGM EIA . 09/05/2017 Dora Spotted Fever Igg/Igm 904010 RMSF, IGM 0.17 index 09/05/2017 Dora Spotted Fever Igg/Igm 397994 FEI MT SPOTTED FEVER IGG EIA FLEX . 09/05/2017 Dora Spotted Fever Igg/Igm 744310 RMSF, IGG SCREEN-FLEX Positive 09/05/2017 Fei Varelan Spot'D Fev Igg 107538 RMSF, IGG -TITER IFA <1:64 11/2016 Ehrlichia Chaffeensis Antibody Igm 929481 EHRLICHIA CHAFFEENSIS IGM < 1:16 09/03/2017 Ehrlichia Chaffeensis Antibody Igg 755929 EHRLICHIA CHAFFEENSIS IGG <1:64 09/03/2017 Lymes Disease Total Antibodies With Western Blot Reflex B. BURGDORFERI, IGG/IGM 0.223 08/30/2017 Lymes Disease Total Antibodies With Western Blot Reflex C-Reactive Protein Qnt Crqnt CRP 0.00 mg/dl 08/27/2017 Sed Rate Ord21 ESR 8 mm/hr 08/27/2017 Comp Metabolic Ese575 NA 135 mEq/L 08/16/2017 Comp Metabolic Jsv163 K 4.1 mEq/L 08/16/2017 Comp Metabolic Ywo684 CL 98 mEq/L 08/16/2017 Comp Metabolic Sbr198 CO2 28.0 mEq/L 08/16/2017 Comp Metabolic Byr053 ANION GAP 13 08/16/2017 Comp Metabolic Wen879 GLUCOSE 299 mg/dL 08/16/2017 Comp Metabolic Hbq425 Creat 0.9 mg/dL 08/16/2017 Comp Metabolic Zkj942 eGFR 90 ml/min/1.73m2 08/16/2017 Comp Metabolic Flz410 BUN 20 mg/dL 08/16/2017 Comp Metabolic Vjq845 B/C Ratio 21.5 Ratio 08/16/2017 Comp Metabolic Nqx737 CALCIUM 9.2 mg/dL 08/16/2017 Comp Metabolic Bxl636 ALK PHOS 84 U/L 08/16/2017 Comp Metabolic Vad241 AST(SGOT) 19 U/L 08/16/2017 Comp Metabolic Pob843 ALT(SGPT) 24 U/L 08/16/2017 Comp Metabolic Tdn242 BILI T 1.1 mg/dL 08/16/2017 Comp Metabolic Nkc309 ALBUMIN 4.2 g/dL 08/16/2017 Comp Metabolic Luq138 TPRO 7.2 g/dL 08/16/2017 Comp Metabolic Brb374 GLOB 3.0 g/dL 08/16/2017 Comp Metabolic Kjd537 A/G Ratio 1.4 Ratio 08/16/2017 Comp Metabolic Oik434 Osmo 284 mOsmo 08/16/2017 %Hba1C Vkw881 % HbA1c 17906-6 12.5 % 08/16/2017 %Hba1C Dvl914 Gluc Ave 312 mg/dL 08/16/2017 Urine Culture Ucult Complete NO Growth Day 2 06/23/2017 Urine Culture Ucult Preliminary NO Growth Day 1 06/23/2017 C RAP A SC [id number] Strep A Negative 06/08/2017 %Hba1C Tdu685 % HbA1c 38380-3 9.5 % 05/04/2017 %Hba1C Raz376 Gluc Ave 226 mg/dL 05/04/2017 Tsh Ord6 [...] 31.7 pg 05/04/2017 Cbc With Differential Ord2 [place]% 8.5 % 05/04/2017 Cbc With Differential Ord2 [...] 2.48 K/ul 05/04/2017 Cbc With Differential Ord2 [place] ABS# 0.5 K/ul 05/04/2017 Cbc With Differential Ord2 Eos ABS# 0.1 K/ul 05/04/2017 Cbc With Differential Ord2 Baso ABS# 0.0 K/ul 05/04/2017 Comp Metabolic Rtp237 NA 135 mEq/L 05/04/2017 Comp Metabolic Mai460 K 4.2 mEq/L 05/04/2017 Comp Metabolic Cnf576 CL 99 mEq/L 05/04/2017 Comp Metabolic Ojy351 CO2 26.0 mEq/L 05/04/2017 Comp Metabolic Ann311 ANION GAP 14 05/04/2017 Comp Metabolic Rpn097 GLUCOSE 277 mg/dL 05/04/2017 Comp Metabolic Zqz484 Creat 0.9 mg/dL 05/04/2017 Comp Metabolic Dqm096 eGFR 96 ml/min/1.73m2 05/04/2017 Comp Metabolic Pgp550 BUN 23 mg/dL 05/04/2017 Comp Metabolic Wrw951 B/C Ratio 26.1 Ratio 05/04/2017 Comp Metabolic Mom548 CALCIUM 8.9 mg/dL 05/04/2017 Comp Metabolic Sqn417 ALK PHOS 81 U/L 05/04/2017 Comp Metabolic Siw238 AST(SGOT) 21 U/L 05/04/2017 Comp Metabolic Vng423 ALT(SGPT) 27 U/L 05/04/2017 Comp Metabolic Zet170 BILI T 1.2 mg/dL 05/04/2017 Comp Metabolic Zyf080 ALBUMIN 4.0 g/dL 05/04/2017 Comp Metabolic Kjq854 TPRO 6.7 g/dL 05/04/2017 Comp Metabolic Dnh391 GLOB 2.7 g/dL 05/04/2017 Comp Metabolic Cdf119 A/G Ratio 1.5 Ratio 05/04/2017 Comp Metabolic Exn436 Osmo 284 mOsmo 05/04/2017 C A/B FLU 6519191 Influenza A Scr Negative 02/16/2017 C A/B FLU 1907938 Influenza B Scr Positive 02/16/2017 Cbc With [...] 30.3 pg 05/23/2016 Cbc With Differential Ord2 [place]% 8.8 % 05/23/2016 Cbc With Differential Ord2 [...] 2.07 K/ul 05/23/2016 Cbc With Differential Ord2 [place] ABS# 0.5 K/ul 05/23/2016 Cbc With Differential Ord2 Eos ABS# 0.1 K/ul 05/23/2016 Cbc With Differential Ord2 Baso ABS# 0.0 K/ul 05/23/2016 Lipid Ord30 CHOL 397 mg/dL 05/17/2016 Lipid Ord30 HDL 48.0 mg/dl 05/17/2016 Lipid Ord30 TRIG 578 mg/dL 05/17/2016 Lipid Ord30 LDL Unable to calculate Due to elevated triglycerides mg/dL 05/17/2016 Lipid Ord30 C/HDL 8.3 Ratio 05/17/2016 %Hba1C Ell655 % HbA1c 90176-6 12.4 % 05/16/2016 %Hba1C Wfd712 Gluc Ave 309 mg/dL 05/16/2016 Cbc With [...] 30.4 pg 05/15/2016 Cbc With Differential Ord2 [place]% 7.8 % 05/15/2016 Cbc With Differential Ord2 [...] 2.04 K/ul 05/15/2016 Cbc With Differential Ord2 [place] ABS# 0.5 K/ul 05/15/2016 Cbc With Differential Ord2 Eos ABS# 0.1 K/ul 05/15/2016 Cbc With Differential Ord2 Baso ABS# 0.0 K/ul 05/15/2016 Tsh Ord6 hTSH II 1.70 uIU/mL 05/15/2016 Comp Metabolic Yxc187 NA 135 mEq/L 05/15/2016 Comp Metabolic Jbx405 K 3.9 mEq/L 05/15/2016 Comp Metabolic Jbi365 CL 96 mEq/L 05/15/2016 Comp Metabolic Imw356 CO2 27.0 mEq/L 05/15/2016 Comp Metabolic Lzk986 ANION GAP 16 05/15/2016 Comp Metabolic Dam960 GLUCOSE 183 mg/dL 05/15/2016 Comp Metabolic Wez647 Creat 1.1 mg/dL 05/15/2016 Comp Metabolic Kpj808 eGFR 71 ml/min/1.73m2 05/15/2016 Comp Metabolic Qth579 BUN 17 mg/dL 05/15/2016 Comp Metabolic Xdv701 B/C Ratio 14.9 Ratio 05/15/2016 Comp Metabolic Bsu507 CALCIUM 9.6 mg/dL 05/15/2016 Comp Metabolic Dav267 ALK PHOS 100 U/L 05/15/2016 Comp Metabolic Imt093 AST(SGOT) 20 U/L 05/15/2016 Comp Metabolic Ard155 ALT(SGPT) 20 U/L 05/15/2016 Comp Metabolic Tvq293 BILI T 1.3 mg/dL 05/15/2016 Comp Metabolic Ien451 ALBUMIN 4.6 g/dL 05/15/2016 Comp Metabolic Shg409 TPRO 8.1 g/dL 05/15/2016 Comp Metabolic Eqx064 GLOB 3.5 g/dL 05/15/2016 Comp Metabolic Uvd498 A/G Ratio 1.3 Ratio 05/15/2016 Comp Metabolic Mpq009 Osmo 276 mOsmo 05/15/2016 Review of Systems [...] of skin Location: face 05/04/2017 patch left jehovah's witness Full Exam - General 1994 Constitutional general [...] CPT-4: J3301 09/30/2018 THER/PROPH/DIAG INJ SC/IM CPT-4: 45735 09/11/2018 TRIAMCINOLONE ACET INJ NOS CPT-4: J3301 09/11/2018 IMMUNIZATION ADMIN CPT -4: 45542 07/22/2018 FLU VAC NO PRSV 4 MENA 3 YRS+ CPT-4: 13875 07/22/2018 TRIAMCINOLONE ACET INJ NOS CPT-4: J3301 06/28/2018 KETOROLAC TROMETHAMINE INJ CPT-4: J1885 05/02/2018 FLU VAC NO PRSV 4 MENA 3 YRS+ CPT-4: 13568 08/16/2017 IMMUNIZATION ADMIN CPT -4: 62638 08/16/2017 URINALYSIS NONAUTO W/O SCOPE CPT-4: 08297 06/21/2017 TRIAMCINOLONE ACET INJ NOS CPT-4: J3301 05/04/2017 THER/PROPH/DIAG INJ SC/IM CPT-4: 90999 05/04/2017 TRIAMCINOLONE ACET INJ NOS CPT-4: J3301 02/16/2017 ROCEPHIN, PER 250 MG CPT-4: J0696 02/16/2017 ROCEPHIN, PER 250 MG CPT-4: J0696 10/06/2016 URINALYSIS NONAUTO W/O SCOPE CPT-4: 32850 07/18/2016 TRIAMCINOLONE ACET INJ NOS CPT-4: J3301 01/20/2016 Vital Signs Date Vital 11/12/2018 Blood Pressure 1: 138/76 Code : 8480-6 BMI: 33.9 Code : 72650-7 Heart Rate 1 : 91 bpm Height: 6'2" SpO2: 99% Weight: 264 lbs 10/30/2018 Blood Pressure 1: 130/72 Code : 8480-6 BMI: 33.3 Code : 77142-2 Heart Rate 1 : 83 bpm Height: 6'2" SpO2: 95% Temperature: 36.5 (C) / 97.7 (F) Weight: 259 lbs 10/24/2018 Blood Pressure 1: 130/70 Code : 8480-6 Heart Rate 1: 95 bpm Height: 6'2" SpO2: 96% 10/23/2018 Blood Pressure 1: 100/70 Code : 8480-6 Blood Pressure 2: 102/70 Code: 8480-6 BMI: 33.3 Code: 89838-4 Heart Rate 1: 106 bpm Height: 6'2" SpO2: 98% Weight: 259 lbs 10/21/2018 Blood Pressure 1: 140/90 Code : 8480-6 BMI: 32.9 Code : 19672-6 Heart Rate 1 : 96 bpm Height: 6'2" SpO2: 92% Weight: 256 lbs 10/17/2018 Blood Pressure 1: 110/68 Code : 8480-6 BMI: 32.9 Code : 28675-9 Heart Rate 1 : 82 bpm Height: 6'2" SpO2: 97% Weight: 256 lbs 10/14/2018 Blood Pressure 1: 124/70 Code : 8480-6 BMI: 33.6 Code : 03586-7 Heart Rate 1 : 76 bpm Height: 6'2" SpO2: 99% Temperature: 36.3 (C) / 97.3 (F) Weight: 262 lbs 09/30/2018 Blood Pressure 1: 138/82 Code : 8480-6 BMI: 33.6 Code : 41594-1 Heart Rate 1 : 82 bpm Height: 6'2" SpO2: 98% Temperature: 36.3 (C) / 97.3 (F) Weight: 262 lbs 09/09/2018 Blood Pressure 1: 140/80 Code : 8480-6 BMI: 33.0 Code : 21359-8 Heart Rate 1 : 97 bpm Height: 6'2" SpO2: 93% Temperature: 36.8 (C) / 98.2 (F) Weight: 257 lbs 07/22/2018 Blood Pressure 1: 120/78 Code : 8480-6 BMI: 31.6 Code : 42285-5 Heart Rate 1 : 87 bpm Height: 6'2" SpO2: 98% Weight: 246 lbs 07/16/2018 Blood Pressure 1: 132/74 Code : 8480-6 BMI: 31.2 Code : 85925-8 Heart Rate 1 : 90 bpm Height: 6'2" SpO2: 96% Weight: 243 lbs 07/01/2018 Blood Pressure 1: 142/82 Code : 8480-6 BMI: 31.8 Code : 84613-6 Heart Rate 1 : 88 bpm Height: 6'2" SpO2: 98% Weight: 248 lbs 06/28/2018 Blood Pressure 1: 132/76 Code : 8480-6 BMI: 31.8 Code : 67228-0 Heart Rate 1 : 107 bpm Height: 6'2" SpO2: 98% Temperature: 37.9 (C) / 100.3 (F) Weight: 248 lbs 06/18/2018 Blood Pressure 1: 138/82 Code : 8480-6 BMI: 31.8 Code : 04922-6 Heart Rate 1 : 82 bpm Height: 6'2" SpO2: 97% Weight: 248 lbs 06/04/2018 Blood Pressure 1: 128/84 Code : 8480-6 BMI: 33.9 Code : 88592-4 Heart Rate 1 : 86 bpm Height: 6'2" SpO2: 95% Weight: 264 lbs 05/13/2018 Blood Pressure 1: 130/80 Code : 8480-6 BMI: 31.1 Code : 70424-9 Heart Rate 1 : 100 bpm Height: 6'2" SpO2: 94% Weight: 242 lbs 05/02/2018 Blood Pressure 1: 134/84 Code : 8480-6 BMI: 31.2 Code : 09891-1 Heart Rate 1 : 93 bpm Height: 6'2" SpO2: 98% Weight: 243 lbs 04/29/2018 Blood Pressure 1: 142/88 Code : 8480-6 BMI: 31.6 Code : 50929-6 Heart Rate 1 : 96 bpm Height: 6'2" SpO2: 96% Temperature: 36.7 (C) / 98.1 (F) Weight: 246 lbs 03/13/2018 Blood Pressure 1: 120/76 Code : 8480-6 BMI: 30.9 Code : 43838-1 Heart Rate 1 : 112 bpm Height: 6'2" SpO2: 97% Weight: 241 lbs 03/07/2018 Blood Pressure 1: 108/78 Code : 8480-6 BMI: 30.0 Code : 09280-9 Heart Rate 1 : 87 bpm Height: 6'2" SpO2: 98% Weight: 234 lbs 02/28/2018 Blood Pressure 1: 106/74 Code : 8480-6 BMI: 30.0 Code : 81678-3 Heart Rate 1 : 101 bpm Height: 6'2" SpO2: 98% Temperature: 36.4 (C) / 97.5 (F) Weight: 234 lbs 02/13/2018 Blood Pressure 1: 110/78 Code : 8480-6 BMI: 30.0 Code : 93520-7 Heart Rate 1 : 106 bpm Height: 6'2" SpO2: 98% Weight: 234 lbs 01/29/2018 Blood Pressure 1: 106/68 Code : 8480-6 BMI: 30.0 Code : 10576-0 Heart Rate 1 : 108 bpm Height: 6'2" SpO2: 98% Weight: 234 lbs 08/27/2017 Blood Pressure 1: 134/76 Code : 8480-6 Heart Rate 1: 98 bpm Height: SpO2: 97% Weight: 08/16/2017 Blood Pressure 1: 128/80 Code : 8480-6 BMI: 32.0 Code : 99762-1 Heart Rate 1 : 94 bpm Height: [...] Code : 8480-6 BMI: 31.8 Code : 40469-6 Heart Rate 1 : 102 bpm Height: [...] Code : 8480-6 BMI: 31.8 Code : 19471-5 Heart Rate 1 : 85 bpm Height: 6'2" SpO2: 96% Temperature: 36.6 (C) / 97.9 (F) Weight: 248 lbs 02/12/2017 Blood Pressure 1: 126/76 Code : 8480-6 BMI: 31.8 Code : 04905-2 Heart Rate 1 : 106 bpm Height: 6'2" SpO2: 91% Weight: 248 lbs 02/05/2017 Blood Pressure 1: 146/86 Code : 8480-6 BMI: 31.9 Code : 97247-6 Heart Rate 1 : 98 bpm Height: 6'2" SpO2: 87% Temperature: 36.7 (C) / 98.0 (F) Weight: 248 lbs 8 oz 01/29/2017 Blood Pressure 1: 132/84 Code : 8480-6 BMI: 31.8 Code : 04419-7 Heart Rate 1 : 83 bpm Height: 6'2" SpO2: 97% Weight: 248 lbs 10/13/2016 Blood Pressure 1: 128/72 Code : 8480-6 Heart Rate 1: 86 bpm SpO2: 94% 10/09/2016 Blood Pressure 1: 128/68 Code : 8480-6 Heart Rate 1: 136 bpm SpO2: 94% Temperature: 36.8 (C) / 98.2 (F) 10/06/2016 Blood Pressure 1: 140/80 Code : 8480-6 BMI: 32.1 Code : 59981-3 Heart Rate 1 : 94 bpm Height: 6'2" SpO2: 95% Weight: 250 lbs 07/18/2016 Blood Pressure 1: 128/86 Code : 8480-6 BMI: 32.1 Code : 72733-1 Heart Rate 1 : 89 bpm Height: 6'2" SpO2: 96% Weight: 250 lbs 06/22/2016 Blood Pressure 1: 118/70 Code : 8480-6 BMI: 32.1 Code : 49819-0 Heart Rate 1 : 70 bpm Height: 6'2" SpO2: 97% Weight: 250 lbs 05/23/2016 Blood Pressure 1: 128/80 Code : 8480-6 BMI: 32.1 Code : 66397-5 Heart Rate 1 : 76 bpm Height: 6'2" SpO2: 98% Weight: 250 lbs 05/15/2016 Blood Pressure 1: 110/90 Code : 8480-6 BMI: 31.3 Code : 76698-8 Heart Rate 1 : 111 bpm Height: 6'2" SpO2: 97% Temperature: 36.6 (C) / 97.8 (F) Weight: 244 lbs 01/20/2016 Blood Pressure 1: 128/76 Code : 8480-6 BMI: 33.0 Code : 90427-7 Heart Rate 1 : 103 bpm Height: [...] data Encounters Encounter Performer Location Codes Date ([id number]) [id number] EST. PATIENT, LEVEL III Diagnosis: Cough[ICD10: R05] Diagnosis: Pneumonia due to other Gram-negative bacteria[ICD10: J15.6] Marcela Ha MD, [facility] CPT-4: 58898 11/12/2018 ([id number]) 68126 EST. PATIENT, LEVEL III Diagnosis: Pneumonia due to other Gram-negative bacteria[ICD10: J15.6] Diagnosis: Cough[ICD10: R05] Melida Ha MD, [facility] CPT-4: 67372 10/30/2018 ([id number]) 01258 EST. PATIENT, LEVEL II Diagnosis: Pain in joints of right hand[ICD10: M25.541] Diagnosis: Trigger finger, right middle finger[ICD10: M65.331] Marcela Ha MD, [facility] CPT-4: 27796 10/24/2018 ([id number]) 05653 EST. PATIENT, LEVEL IV Diagnosis: Essential (primary) hypertension[ICD10: I10] Diagnosis: Type 2 diabetes mellitus with foot ulcer[ICD10: E11.621] Melida Ha MD, [facility] CPT-4: 90675 10/23/2018 ([id number]) 34859 EST. PATIENT, LEVEL III Diagnosis: Cellulitis of right finger[ICD10: L03.011] Diagnosis: Type 2 diabetes mellitus with foot ulcer[ICD10: E11.621] Diagnosis: Pain in right hand[ICD10: M79.641] Melida Ha MD, [facility] CPT-4: 95776 10/21/2018 [id number] EST. PATIENT, LEVEL III Diagnosis: Spontaneous ecchymoses[ICD10: R23.3] Diagnosis: Cellulitis of right lower limb[ICD10: L03.115] Diagnosis: Cellulitis of left lower limb[ICD10: L03.116] Madeline Ha MD, [facility] CPT-4: 09797 10/17/2018 ([id number]) 17456 EST. PATIENT, LEVEL III Diagnosis: Cough[ICD10: R05] Diagnosis: Acute bronchitis, unspecified[ICD10: J20.9] Melida Ha MD, [facility] CPT-4: 56318 10/14/2018 73343 EST. PATIENT, LEVEL III Diagnosis: Acute laryngopharyngitis[ICD10: J06.0] Diagnosis: Cough[ICD10: R05] Madeline Ha MD, [facility] CPT-4: 63280 09/30/2018 ([id number]) 92636 EST. PATIENT, LEVEL III Diagnosis: Acute recurrent maxillary sinusitis[ICD10: J01.01] Diagnosis: Cough[ICD10: R05] Diagnosis: Type 2 diabetes mellitus with hyperglycemia[ICD10: E11.65] Marcela Ha MD, [facility] CPT-4: 04535 09/09/2018 ([id number]) 83885 EST. PATIENT, LEVEL IV Diagnosis: Essential (primary) hypertension[ICD10: I10] Diagnosis: Mixed hyperlipidemia[ICD10: E78.2] Diagnosis: Bipolar disorder, current episode depressed, moderate[ICD10: F31.32] Diagnosis: Type 2 diabetes mellitus with other specified complication[ICD10: E11.69] Melida Ha MD, [facility] CPT-4: 64534 2017 ([id number]) 60447 EST. PATIENT, LEVEL III Diagnosis: Insomnia due to medical condition[ICD10: G47.01] Marcela Ha MD, [facility] CPT-4: 22170 07/16/2018 ([id number]) Miscellaneous no charge Diagnosis: Cough[ICD10: R05] Madeline Ha MD, [facility] CPT-4: 19649 07/01/2018 84876 EST. PATIENT, LEVEL III Diagnosis: Cough[ICD10: R05] Diagnosis: Acute laryngopharyngitis[ICD10: J06.0] Diagnosis: Other allergic rhinitis[ICD10: J30.89] Madeline Ha MD, [facility] CPT-4: 04425 06/28/2018 ([id number]) 57088 EST. PATIENT, LEVEL IV Diagnosis: Type 2 diabetes mellitus with hyperglycemia[ICD10: E11.65] Diagnosis: Essential (primary) hypertension[ICD10: I10] Melida Ha MD, [facility] CPT-4: 84357 06/18/2018 ([id number]) 11441 EST. PATIENT, LEVEL IV Diagnosis: Type 2 diabetes mellitus with hyperglycemia[ICD10: E11.65] Diagnosis: Essential (primary) hypertension[ICD10: I10] Diagnosis: Localized edema[ICD10: R60.0] Melida Ha MD, [facility] CPT- 4: 07871 06/04/2018 ([id number]) 88131 EST. PATIENT, LEVEL III Diagnosis: Type 2 diabetes mellitus with hyperglycemia[ICD10: E11.65] Diagnosis: Myalgia[ICD10: M79.1] Diagnosis: Pain in right hip[ICD10: M25.551] Diagnosis: Pain in left hip[ICD10: M25.552] Marcela Ha MD, [facility] CPT-4: 65559 05/13/2018 ([id number]) 20604 EST. PATIENT, LEVEL III Diagnosis: Myalgia[ICD10: M79.1] Diagnosis: Pain in right hip[ICD10: M25.551] Diagnosis: Pain in left hip[ICD10: M25.552] Marcela Ha MD, [facility] CPT-4: 49495 05/02/2018 ([id number]) 55414 EST. PATIENT, LEVEL IV Diagnosis: Essential (primary) hypertension[ICD10: I10] Diagnosis: Type 2 diabetes mellitus with hyperglycemia[ICD10: E11.65] Diagnosis: Major depressive disorder, single episode, moderate[ICD10: F32.1] Diagnosis: Myalgia[ICD10: M79.1] Marcela Ha MD, [facility] CPT-4: 77027 04/29/2018 ([id number]) 18658 EST. PATIENT, LEVEL IV Diagnosis: Type 2 diabetes mellitus with hyperglycemia[ICD10: E11.65] Diagnosis: Essential (primary) hypertension[ICD10: I10] Diagnosis: Major depressive disorder, single episode, moderate[ICD10: F32.1] Melida Ha MD, [facility] CPT-4: 85640 03/13/2018 ([id number]) 58345 EST. PATIENT, LEVEL III Diagnosis: Type 2 diabetes mellitus with hyperglycemia[ICD10: E11.65] Diagnosis: Bipolar disorder, current episode depressed, moderate[ICD10: F31.32] Diagnosis: Orthostatic hypotension[ICD10: I95.1] Marcela Ha MD, [facility] CPT-4: 64689 03/07/2018 ([id number]) 04132 EST. PATIENT, LEVEL IV Diagnosis: Type 2 diabetes mellitus with hyperglycemia[ICD10: E11.65] Diagnosis: Major depressive disorder, single episode, moderate[ICD10: F32.1] Diagnosis: Orthostatic hypotension[ICD10: I95.1] Diagnosis: Other fatigue[ICD10: R53.83] Marcela Ha MD, [facility] CPT-4: 86260 02/28/2018 58952 EST. PATIENT, LEVEL IV Diagnosis: Other fatigue[ICD10: R53.83] Diagnosis: Other malaise[ICD10: R53.81] Diagnosis: Gastro-esophageal reflux disease without esophagitis[ICD10: K21.9] Madeline Ha MD, [facility] CPT-4: 79120 02/13/2018 ([id number]) 77026 EST. PATIENT, LEVEL IV Diagnosis: Type 2 diabetes mellitus with foot ulcer[ICD10: E11.621] Diagnosis: Essential (primary) hypertension[ICD10: I10] Diagnosis: Gastro-esophageal reflux disease without esophagitis[ICD10: K21.9] Marcela Ha MD, [facility] CPT-4: 93084 01/29/2018 16976 EST. PATIENT, LEVEL III Diagnosis: Other malaise[ICD10: R53.81] Diagnosis: Other fatigue[ICD10: R53.83] Diagnosis: Pain in right shoulder[ICD10: M25.511] Diagnosis: Pain in left shoulder[ICD10: M25.512] Madeline Ha MD, [facility] CPT-4: 63581 08/27/2017 ([id number]) 53586 EST. PATIENT, LEVEL IV Diagnosis: Essential (primary) hypertension[ICD10: I10] Diagnosis: Type 2 diabetes mellitus with hyperglycemia[ICD10: E11.65] Diagnosis: VACCIN FOR INFLUENZA[ICD10: Z23] Melida Ha MD, [facility] CPT-4: 81551 08/16/2017 93364 EST. PATIENT, LEVEL III Diagnosis: Zoster without complications[ICD10: B02.9] Madeline Ha MD [facility] CPT-4: 84097 07/26/2017 ([id number]) 47658 EST. PATIENT, LEVEL III Diagnosis: Cellulitis of right lower limb[ICD10: L03.115] Marcela Ha MD [facility] CPT-4: 79015 07/03/2017 29422 EST. PATIENT, LEVEL II Diagnosis: Laceration without foreign body of left forearm, initial encounter[ ICD10: S51.812A] Marcela Ha MD [facility] CPT-4: 10569 06/29/2017 ([id number]) 64848 EST. PATIENT, LEVEL III Diagnosis: Cellulitis of right lower limb[ICD10: L03.115] Diagnosis: Type 2 diabetes mellitus with foot ulcer[ICD10: E11.621] Marcela Ha MD [facility] CPT-4: 72716 06/18/2017 ([id number]) 87799 EST. PATIENT, LEVEL IV Diagnosis: Cellulitis of right lower limb[ICD10: L03.115] Diagnosis: Acute laryngopharyngitis[ICD10: J06.0] Diagnosis: Gastro-esophageal reflux disease without esophagitis[ICD10: K21.9] Marcela Ha MD [facility] CPT-4: 78812 06/07/2017 ([id number]) 58500 EST. PATIENT, LEVEL III Diagnosis: Type 2 diabetes mellitus with hyperglycemia[ICD10: E11.65] Diagnosis: Insect bite (nonvenomous) of abdominal wall, initial encounter[ICD10 : S30.861A] Marcela Ha MD [facility] CPT-4: 09600 05/17/2017 ([id number]) 15595 EST. PATIENT, LEVEL III Diagnosis: Allergic contact dermatitis due to plants, except food[ICD10: L23.7] Melida Ha MD [facility] CPT-4: 52741 05/04/2017 ([id number]) 39097 EST. PATIENT, LEVEL III Diagnosis: Essential (primary) hypertension[ICD10: I10] Marcela Ha MD [facility] CPT-4: 00398 03/15/2017 ([id number]) 88256 EST. PATIENT, LEVEL III Diagnosis: Cough[ICD10: R05] Diagnosis: Essential (primary) hypertension[ICD10: I10] Marcela Ha MD [facility] CPT-4: 84048 03/01/2017 ([id number]) 94245 EST. PATIENT, LEVEL III Diagnosis: Cough[ICD10: R05] Diagnosis: Nasal congestion[ICD10: R09.81] Diagnosis: Acute recurrent maxillary sinusitis[ICD10: J01.01] Marcela Ha MD [facility] CPT-4: 97744 02/16/2017 ([id number]) 33083 EST. PATIENT, LEVEL III Diagnosis: Type 2 diabetes mellitus with hyperglycemia[ICD10: E11.65] Marcela Ha MD [facility] CPT-4: 31349 02/12/2017 ([id number]) 65186 EST. PATIENT, LEVEL IV Diagnosis: Type 2 diabetes mellitus with hyperglycemia[ICD10: E11.65] Diagnosis: Muscle weakness (generalized)[ICD10: M62.81] Diagnosis: Disorientation, unspecified[ICD10: R41.0] Marcela Ha MD [facility] CPT-4: 41876 02/05/2017 ([id number]) Patient admitted to the hospital from clinic (NO CHARGE) Diagnosis: Type 2 diabetes mellitus with hyperglycemia[ICD10: E11.65] Diagnosis: Disorientation, unspecified[ICD10: R41.0] Diagnosis: Muscle weakness (generalized)[ICD10: M62.81] Marcela Ha MD [facility] CPT-4: 89905N 01/29/2017 ([id number]) Miscellaneous no charge Diagnosis: Cellulitis of right lower limb[ICD10: L03.115] [facility] CPT-4: 41573 10/13/2016 ([id number]) Miscellaneous no charge Diagnosis: Type 2 diabetes mellitus with foot ulcer[ICD10: E11.621] Diagnosis: Pain in right foot[ICD10: M79.671] [facility] CPT-4: 95302 10/09/2016 33649 EST. PATIENT, LEVEL II Diagnosis: Cellulitis of right lower limb[ICD10: L03.115] Marcela Ha MD [facility] CPT-4: 90969 10/06/2016 ([id number]) 43544 EST. PATIENT, LEVEL IV Diagnosis: Low back pain[ICD10: M54.5] Diagnosis: Other deformities of toe(s) (acquired), left foot[ICD10: M20.5X2] Diagnosis: Type 2 diabetes mellitus with foot ulcer[ICD10: E11.621] Marcela Ha MD , [facility] CPT-4: 32209 07/18/2016 ([id number]) 61847 EST. PATIENT, LEVEL III Diagnosis: Type 2 diabetes mellitus with hyperglycemia[ICD10: E11.65] Marcela Ha MD, [facility] CPT-4: 99305 06/22/2016 ([id number]) 32812 EST. PATIENT, LEVEL IV Diagnosis: Type 2 diabetes mellitus with hyperglycemia[ICD10: E11.65] Diagnosis: Mixed hyperlipidemia[ICD10: E78.2] Diagnosis: Other hemoglobinopathies[ICD10: D58.2] Marcela Ha MD, [facility] CPT-4: 58471 05/23/2016 ([id number]) 17358 EST. PATIENT, LEVEL IV Diagnosis: Type 2 diabetes mellitus with other specified complication[ICD10: E11.69] Diagnosis: Dehydration[ICD10: E86.0] Marcela Ha MD, [facility] CPT-4: 43592 05/15/2016 ([id number]) OFFICE VISIT, NEW - LEVEL 3 Diagnosis: Allergic contact dermatitis due to plants, except food[ICD10: L23.7] Madeline Ha MD, [facility] CPT-4: 53330 01/20/2016 Plan of Care Planned Activity Notes [...] 11/12/2018 Care Plan: Referral Order SNOMED-CT : 842087423 Pending 11/12/2018 Care Plan: Culture Sputum Pending 11/12/2018 Referral: Niko Mantilla Referral Completed 11/04/2018 Visit Plan: Pneumonia, cough - recent diagnosis of Moraxella Cattharalis - with sensitivity to levaquin - will give 2 wks of levaquin since he had improvement but no full resolution of symptoms. 10/30/2018 Appointment: Melida Ha WPtel: [facility] 30 min appointments only in this slot 10/30/2018 Patient Education: Patient Medication Summary Completed 10/30/2018 Visit Plan: Right hand-joint pain and swelling -negative for gout -treated for cellulitis right 2nd mcp joint -now having difficulty with long finger "locking" -Dr Ha in to evaluate patient and tape index and long finger in place-refer to Dr Mantilla for evaluation 10/24/2018 Appointment: Marcela Oshea WPtel: [facility]8 [phone] [place] (30 min) Complex 10/24/2018 Patient Education: Patient Medication Summary Completed 10/24/2018 Care Plan: Referral Order SNOMED-CT : [id number] Pending 10/24/2018 Visit Plan: Hypotension - discussed [...] less controlled. 10/23/2018 Appointment: Melida Ha WPtel: [facility] [place] (15 min) Moderate 10/23/2018 Patient Education: [...] and plan. 10/21/2018 Appointment: [phone] ([facility] min) [facility] 10/21/2018 Patient Education: Patient Medication Summary Completed [...] warmth, discharge. 10/17/2018 Appointment: Madeline Kennedy WPtel: [phone] [facility] (15 min) Moderate 10/17/2018 Patient Education: [...] acutely worsen. 10/14/2018 Appointment: Marcela Oshea WPtel: [phone] [facility] (15 min) Moderate 10/14/2018 Patient Education: Patient Medication Summary Completed 10/14/2018 Care Plan: CHEST X-RAY 2VW FRONTAL&LATL LOINC : 37308-4 Pending 10/14/2018 Visit Plan: URI - Pt [...] allergy spray. 09/30/2018 Appointment: Madeline Kennedy WPtel: [phone] [facility] (15 min) Moderate 09/30/2018 Patient Education: [...] improvement. DM- check Hgb A1C 09/09/2018 Appointment: Dayo Marcela WPtel: [phone] (15 min) Moderate 09/09/2018 Patient Education: Patient Medication Summary Completed 09/09/2018 Patient Education: Patient Medication Summary Completed 09/06/2018 Patient Education: Cholesterol Management Completed 09/06/2018 Care Plan: Comp Metabolic Pending 09/06/2018 Care Plan: Cbc With Differential Pending 09/06/2018 Care Plan: %Hba1C LOINC : 62070-1 Pending 09/06/2018 Care Plan: Tsh Pending 09/06/2018 Care Plan: Lipid Pending 09/06/2018 Appointment: Marcela Oshea WPtel: [phone] (15 min) Moderate 08/26/2018 Appointment: Marcela Oshea WPtel: [facility] [address] (15 min) Moderate 08/23/2018 Visit Plan: Hypertension [...] clinic. 07/22/2018 Appointment: [facility]el[phone] (15 [facility]) Moderate 07/22/2018 Patient Education: [...] time insomnia. 07/16/2018 Appointment: Marcela Oshea WPtel: [phone] [phone] (30 min) Complex 07/16/2018 Patient Education: Patient Medication Summary Completed 07/16/2018 Visit Plan: cough - improved - notify clinic if symptoms do not completely resolve, or with any questions or concerns. 07/01/2018 Appointment: Madeline Kennedy [facility]Ptel[phone] (15 min) Moderate 07/01/2018 Patient Education: Patient [...] spray. 06/28/2018 Appointment: Madeline Kennedy WPtel: [phone] [facility] (15 min) Moderate 06/28/2018 Patient Education: Patient Medication Summary Completed 06/28/2018 Patient Education: Patient Medication Summary Completed 06/21/2018 Care Plan: Annabel RICKS [place] Pending 06/21/2018 Visit Plan: Diabetes Mellitus - [...] home. 06/18/2018 Appointment: Melida Ha WPtel: [phone] [facility] (15 min) Moderate 06/18/2018 Patient Education: [...] swelling improves. 06/04/2018 Appointment: Melida Ha WPtel: [phone] [facility] (15 min) Moderate 06/04/2018 Patient [...] allow for greater blood glucose control. Joint vwfe-kmdwrrbs-pmvsjom- symptoms have improved -stop meloxicam due to upset stomach-call if symptoms return 05/13/2018 Appointment: Marcela Oshea WPtel: [phone] (30 min) Complex 05/13/2018 Patient Education: Patient Medication Summary Completed 05/13/2018 Visit Plan: Bilateral hip gqqy-nmztlogq-aqgwmmf IM injection administered today for c/o continued myalgia/arthralgia. Patient to start taking Meloxicam 15mg PO daily. Advised to return to clinic if symptoms do not improve. 05/02/2018 Appointment: Marcela Oshea WPtel: [phone] (30 min) Complex 05/02/2018 Patient Education: [...] readings at home. Diabetes Mellitus -check labs Rrqtounb-vzbbtza-ajer bite-rx for doxycycline-follow up in 2 weeks 04/29/2018 Appointment: Marcela Oshea WPtel: [phone] [phone] [place] (15 min) Moderate 04/29/2018 Patient Education: Patient Medication Summary Completed 04/29/2018 Appointment: Melida Ha WPtel: [phone] [facility] (15 min) Moderate 04/15/2018 Appointment: Marcela Oshea WPtel: [phone] [phone] (30 min) Complex 03/21/2018 Visit Plan: [...] cymbalta 03/13/2018 Appointment: Melida Ha [facility]el[phone] (30 min) Complex 03/13/2018 Patient Education: Patient Medication Summary Completed 03/13/2018 Visit Plan: DM-continue same medications-monitor blood sugars routinely as directed -rx for new glucometer and test strips provided Bipolar-currently depressed-patient start on vraylar-follow up in 2 weeks, sooner if needed. Patient and verbalied understanding of plan. Hypotension- stay off losartan 03/07/2018 Appointment: Marcela Oshea WPtel: [phone] [phone] [place] (30 min) Complex 03/07/2018 Patient Education: Patient Medication Summary Completed 03/07/2018 Appointment: Leland Melida WPtel: [phone] [facility] (15 min) Moderate 03/04/2018 Visit [...] this patient. 02/28/2018 Appointment: Marcel[facility] Oshea [facility]Ptel: [phone] (30 min) Complex 02/28/2018 Patient Education: Patient [...] improving. 02/13/2018 Appointment: Madeline Kennedy [facility]Ptel: [phone] (15 min) Moderate 02/13/2018 Patient Education: Patient Medication Summary Completed 02/13/2018 Referral: Sun Glynn Patient informed. Referral info faxed. Completed Visit Plan: DM-weight loss-not checking blood sugars- patient sent for labs today HTN-low weqqf-rfwmqws-pyuqx labs Callus of foot and fissue of heel-refer to Dr Glynn for evaluation Esophageal Reflux - the patient has been counseled against excessive intake of caffeine, spicy foods, peppermint , and cinnamon - all of which can exacerbate esophageal reflux. The patient is to take medications as prescribed and call the office if the symptoms are not improving. 01/29/2018 Appointment: Marcela Oshea WPtel: [phone] (30 min) Complex 01/29/2018 Patient Education: Patient Medication Summary Completed 01/29/2018 Care Plan: Comp Metabolic Cancelled 01/29/2018 Care Plan: Cbc With Differential Cancelled 01/29/2018 Care Plan: %Hba1C LOINC : 00421-1 Cancelled 01/29/2018 Care Plan: Referral Order SNOMED-CT : [id number] Cancelled 01/29/2018 Visit Plan: Fatigue, malaise, joint [...] or concerns. 08/27/2017 Appointment: Madeline Kennedy [facility]Ptel[facility] (15 min) Moderate 08/27/2017 Patient Education: Patient [...] today - 08/16/2017 Appointment: Melida Ha WPtel: [phone] [phone] (30 min) Complex 08/16/2017 Patient Education: Patient Medication Summary Completed 08/16/2017 Patient Education: Obesity Completed 08/16/2017 Appointment: Madeline Kennedy WPtel: [facility] (30 min) Complex 08/07/2017 Visit Plan: [...] contagious. 07/26/2017 Appointment: Mad[facility] Kennedy [facility]Ptel: [phone] (15 min) Moderate 07/26/2017 Patient Education: Patient Medication Summary Completed 07/26/2017 Visit Plan: Cellulitis right foot-cultured today in the office-home health to reapply wound vac--appt with wound care on to evaluate for debridement- 07/03/2017 Appointment: Marcela Oshea WPtel: [phone] [place] (30 min) Complex 07/03/2017 Patient Education: Patient Medication Summary Completed 07/03/2017 Visit Plan: Abrasion left arm - Pt was instructed to keep the wound clean, wash with antibacterial soap, use triple antibiotic ointment, call if redness, pustular drainage, or any other acute concerns. 06/29/2017 Appointment: Marcela Oshea WPtel: [phone] [phone] [place] (15 min) Moderate 06/29/2017 Patient [...] of plan. 06/18/2017 Appointment: Marcela Oshea WPtel: [address] [place], [place] [phone] (15 min) Moderate 06/18/2017 Patient Education: Patient [...] diet-start prilosec 06/07/2017 Appointment: Marcela Oshea WPtel: [phone] (10 min) Simple 06/07/2017 Patient Education: [...] bite-continue doxycycline 05/17/2017 Appointment: Marcela Oshea WPtel: [address] [place] [address] (30 min) Complex 05/17/2017 Patient Education: Patient [...] if you want anai edge called into [facility]. 05/04/2017 Appointment: Marcela Oshea WPtel: [facility] [place] [place] [address] (30 min) Complex 05/04/2017 Patient Education: Patient [...] home. Cough-resolved 03/15/2017 Appointment: Marcela Oshea WPtel: [phone] (15 min) Moderate 03/15/2017 Patient Education: Patient Medication Summary Completed 03/15/2017 Appointment: Marcela Oshea WPtel: [address] [place], [place] [phone] (30 min) Complex 03/12/2017 Visit Plan: Feng [...] discussed 02/16/2017 Appointment: Marcela Oshea WPtel: [phone] (15 min) Moderate 02/16/2017 Patient Education: [...] controlled. 02/12/2017 Appointment: Marcela Oshea WPtel: [phone] (30 min) Complex 02/12/2017 Patient Education: Patient Medication Summary Completed 02/12/2017 Appointment: Marcela Oshea WPtel: [phone] (30 min) Complex 02/06/2017 Visit Plan: [...] will consider 02/05/2017 Appointment: Marcela Oshea WPtel: [phone] (30 min) Complex 02/05/2017 Patient Education: Patient Medication Summary Completed 02/05/2017 Appointment: Marcela Oshea WPtel: [phone] [phone] [place] (30 min) Complex 01/30/2017 Visit Plan: Acute confusion-uncontrolled diabetes- chronically noncompliant with treatment and stopped his insulin several months ago-r/o stroke vs DKA-Dr Ha in to evaluate patient-plan to admit for further work up and treatment-patient's called and she transported him to the hospital 01/29/2017 Appointment: Marcela Oshea WPtel: [phone] [phone] [place] (30 min) Complex 01/29/2017 Patient Education: Patient Medication Summary Completed 01/29/2017 Patient Education: Obesity Completed 01/29/2017 Visit Plan: Right foot pain-MRI shows foreign body-appt with Dr Gerwal for evaluation on Sunday. 10/13/2016 Appointment: Marcela Oshea WPtel: [phone] [phone] [place] (15 min) Moderate 10/13/2016 Patient Education: Patient Medication Summary Completed 10/13/2016 Appointment: [facility]shea [facility]Ptel: [phone] [place] (30 min) Complex 10/12/2016 Visit Plan: Right foot ewzv-vrbqloax-vdolx washer dropped on foot-xray negative but pain continues to increase-recommend MRI of foot for further evaluation-refer to wound care for lesions on right foot, patient has diabetes and history of osteomyelitis-culture obtained today-continue oral abx- follow up in the office on , sooner if needed 10/09/2016 Visit Plan: Right foot fnbb-hsahezaz-waooq washer dropped on foot-xray negative but pain continues to increase-recommend MRI of foot for further evaluation-refer to wound care for lesions on right foot, patient has diabetes and history of osteomyelitis-culture obtained today-continue oral abx- follow up in the office on , sooner if needed 10/09/2016 Visit Plan: Right foot rtjn-stamtnro-ldtuw washer dropped on foot-xray negative but pain continues to increase-recommend MRI of foot for further evaluation-refer to wound care for lesions on right foot, patient has diabetes and history of osteomyelitis-culture obtained today-continue oral abx- follow up in the office on , sooner if needed 10/09/2016 Appointment: Marcela Oshea WPtel: [phone] (30 min) Complex 10/09/2016 Patient Education: Patient Medication Summary Completed 10/09/2016 Visit Plan: Cellulitis - continue with oral antibiotics as previously directed, return to clinic as previously directed, call for acute change in symptoms, worsening redness, warmth, discharge. 10/06/2016 Appointment: Marcela Oshea WPtel: [phone] (10 min) Simple 10/06/2016 Patient Education: Patient Medication Summary Completed 10/06/2016 Appointment: Marcela Oshea WPtel: [phone] (30 min) Complex 08/24/2016 Referral: Sun Glynn Referral Completed 07/21/2016 Visit Plan: Low back pain- history of spinal fusion- patient for xray lumbar spine-RX sent to [facility] pharmacy and instructed on use-topical voltaren samples provided and instructed on use. Ok to use tylenol as needed as well. The patient is to call the office if the pain is worsening or does not improve. Pressure ulcer left 4th toe-refer to Dr Glynn for evaluation 07/18/2016 Appointment: Marcela Oshea WPtel: [phone] (30 min) Complex 07/18/2016 Patient Education: Patient Medication Summary Completed 07/18/2016 Patient Education: Obesity Completed 07/18/2016 Care Plan: Referral Order SNOMED-CT : [id number] Cancelled 07/18/2016 Visit Plan: Diabetes Mellitus - [...] [facility]el: [phone] (30 min) Complex 06/22/2016 Patient Education: Patient [...] [facility]el: [phone] (30 min) Complex 05/23/2016 Patient Education: Patient [...] of plan. 05/15/2016 Appointment: Marcela Oshea WPtel: [phone] [place] (15 min) Moderate 05/15/2016 Patient Education: [...] if you want blue rosieo called into [facility]. 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 Low back pain- history of spinal fusion-patient for xray lumbar spine-RX sent to [facility] pharmacy and instructed on use-topical [...] for fracture from injury . Right foot isbr-mqnktxxn-hlxvf washer dropped on foot-xray negative but pain [...] for fracture from injury . Right foot glzk-vscgyafr-dugob washer dropped on foot-xray negative but pain [...] for fracture from injury . Right foot nwfs-gizppfek-rjjhr washer dropped on foot-xray negative but pain continues to increase-recommend MRI of foot for further evaluation-refer to wound care for lesions on right foot, patient has diabetes and history of osteomyelitis-culture obtained today-continue oral abx-follow up in the office on , sooner if needed . Bilateral hip omdk-piytdgdn-cheabuz IM injection administered today for c/o continued myalgia/arthralgia. Patient to start taking Meloxicam 15mg PO daily. Advised to return to clinic if symptoms do not improve. . DM-weight loss-not checking blood sugars-patient sent for labs today HTN-low uybli-rcfpeub-jatxj labs Callus of foot and fissue of [...] readings are starting to become less controlled. Qwinzafim-svdkjhyv-sghvehpi to monitor Generalized weakness-refer for PT-patient refuses [...] allow for greater blood glucose control. Joint rkso-xxfjxesw-ulvjyub-symptoms have improved -stop meloxicam due to upset [...] readings at home. Diabetes Mellitus -check labs Ndzjyxkg-higdbge-hyij bite-rx for doxycycline-follow up in 2 weeks [...]
--- OUTSIDE RECORDS SUMMARY | 2019-01-01 14:46 | XMS REPORT | CCD ---
Author Author Madeline Kennedy MD, [facility] Address [address] [place] [address] Phone Care Team Providers Care Shift Superintendent Name Role Phone PP Unavailable CCM Unavailable Summary Purpose Interface Exchange Insurance Providers Payer name Policy type / Coverage type Covered green party ID Effective Begin Date Effective End Date Blue Cross Blue Shield 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/[address]: 171159845 Never smoker 01/20/[address]: 489148063 Never drinks alcohol 01/20/2016 Allergies, Adverse Reactions, [...] mL (0.083 %) solution for nebulization RxNorm: 686135 3 Milliliter(s) INH UD 11/07/2018 No Stop Date Active azithromycin 500 mg tablet RxNorm: 906938 500mg on day 1 then 250 mg daily x 4 more day Tablet(s) PO 11/07/20182018 Active 500mg on day 1 and then 250mg daily 2-4 cefdinir 300 mg capsule RxNorm: 425714 1 Capsule(s) PO BID 01/201911/13/2018 Active azithromycin 500 mg tablet RxNorm: 718395 500mg on day 1 then 250 mg daily x 4 more day Tablet(s) PO 11/07/20182018 Inactive 500mg on day 1 and then 250mg daily 2-4 cefdinir 300 mg capsule RxNorm: 971263 1 Capsule(s) PO BID 01/201911/06/2018 Inactive Levaquin 500 mg tablet RxNorm: 279853 1 Tablet(s) PO daily TAKE ONE TABLET BY MOUTH DAILY UNTIL GONE 10/31/20182018 Active Levaquin 500 mg tablet RxNorm: 098804 1 Tablet(s) PO daily 11/12/2018 Active valsartan 80 mg tablet RxNorm: 802511 1/2 Tablet(s) PO daily 04/20/2019 Active doxycycline hyclate 100 mg tablet RxNorm: 6143339 1 Tablet(s) PO BID 10/21/2018 10/27/2018 Inactive ketorolac 60 mg/2 mL intramuscular solution RxNorm: 1479845 Milliliter(s) IM 10/21/2018 10/21/2018 Inactive Levaquin 500 mg tablet RxNorm: 443196 1 Tablet(s) PO daily 10/31/2018 Inactive Tessalon Perles 100 mg capsule RxNorm: 025288 1-2 Capsule(s) PO TID PRN 10/14/2018 No Stop Date Active albuterol sulfate 2.5 mg/3 mL (0.083 %) solution for nebulization RxNorm: 377675 3 Milliliter(s) INH UD 10/14/201812/2018 Inactive Levaquin 500 mg tablet RxNorm: 321118 1 Tablet(s) PO daily 08/201810/16/2018 Inactive Coreg 6.25 mg tablet RxNorm: 032063 TAKE ONE TABLET BY MOUTH TWICE A DAY 09/30/2018 03/28/2019 Active albuterol sulfate 2.5 mg/3 mL (0.083 %) solution for nebulization RxNorm: 078662 3 Milliliter(s) INH UD 09/30/201807/2018 Inactive Kenalog 40 mg/mL suspension for injection RxNorm: 1839321 1.5 Milliliter(s) Inj 09/30/2018 09/30/2018 Inactive Keflex 500 mg capsule RxNorm: 064344 1 Capsule(s) PO TID 201710/03/2018 Inactive prednisone 20 mg tablet RxNorm: 058203 2 Tablet(s) PO daily 09/29/2018 Inactive Kenalog 40 mg/mL suspension for injection RxNorm: 9444984 Milliliter(s) Inj 09/11/2018 09/11/2018 Inactive Zyrtec 10 mg tablet RxNorm: 5106237 1 Tablet(s) PO daily 09/0910/08/2018 Inactive Keflex 500 mg capsule RxNorm: 049760 1 Capsule(s) PO TID 201709/15/2018 Inactive Tresiba FlexTouch U-200 insulin 200 unit/mL (3 mL) subcutaneous pen RxNorm: 7126803 50 Unit(s) SQ daily 08/30/2018 08/29/2018 Inactive please give him 30 day supply Tresiba FlexTouch U-200 insulin 200 unit/mL (3 mL) subcutaneous pen RxNorm: 4198783 50 Unit(s) SQ daily 08/30/2018 09/28/2018 Inactive please give him 30 day supply Novolog Flexpen U-100 Insulin aspart 100 unit/mL subcutaneous RxNorm: 1460118 8 Unit(s) SQ AC 08/13/2018 No Stop Date Active Novolog Flexpen U-100 Insulin aspart 100 unit/mL subcutaneous RxNorm: 1280039 8 Unit(s) SQ AC 07/22/20182017 Inactive this is an update on his medication Novolog Flexpen U-100 Insulin aspart 100 unit/mL subcutaneous RxNorm: 1309272 12 Unit(s) SQ AC 07/05/20182017 Inactive this is an update on his medication Toujeo SoloStar U-300 Insulin 300 unit/mL (1.5 mL) subcutaneous pen RxNorm: 5801311 INJECT 50 UNITS UNDER THE SKIN DAILY 07/01/2018 08/29/2018 Inactive Mucinex 600 mg tablet, extended release RxNorm: 474602 1 Tablet(s) PO BID 06/28/2018 07/04/2018 Inactive Zofran 4 mg tablet RxNorm: 823513 1 Tablet(s) PO TID as needed nausea 06/28/2018 07/02/2018 Inactive Kenalog 40 mg/mL suspension for injection RxNorm: 5906417 Milliliter(s) Inj 06/28/2018 06/28/2018 Inactive Flonase Allergy Relief 50 mcg/actuation nasal spray, suspension RxNorm: 7689287 1 Sherman NASAL BID 06/28/20182017 Inactive Lyrica 50 mg capsule RxNorm: 974227 Capsule(s) PO daily 201707/07/2018 Inactive Novolog Flexpen U-100 Insulin aspart 100 unit/mL subcutaneous RxNorm: 4147626 10 Unit(s) SQ AC 06/18/20182017 Inactive this is an update on his medication Lasix 20 mg tablet RxNorm: 482841 1 Tablet(s) PO BIW 201707/02/2018 Inactive atorvastatin 80 mg tablet RxNorm: 630250 1 Tablet(s) PO QHS 04/201812/06/2018 Active clonazepam 1 mg tablet RxNorm: 959448 2 Tablet(s) PO HS 201706/04/2019 Active clonazepam 1 mg tablet RxNorm: 836591 2 Tablet(s) PO HS as needed 06/10/2018 06/09/2018 Inactive Lyrica 50 mg capsule RxNorm: 078530 Capsule(s) PO daily 201707/08/2018 Inactive Lasix 20 mg tablet RxNorm: 1 Tablet(s) PO TIW 201706/11/2018 Inactive Toujeo SoloStar U-300 Insulin 300 unit/mL (1.5 mL) subcutaneous pen RxNorm: 6484255 50 Unit(s) SQ daily 05/07/2018 06/30/2018 Inactive meloxicam 15 mg tablet RxNorm: 610690 15 Milligram(s) PO daily 05/02/2018 05/12/2018 Inactive ketorolac 30 mg/mL injection solution RxNorm: 781358 2 Milliliter(s) Inj 05/02/2018 05/02/2018 Inactive Toujeo SoloStar U-300 Insulin 300 unit/mL (1.5 mL) subcutaneous pen RxNorm: 3259220 45 Unit(s) daily 04/29/2018 Inactive clonazepam 1 mg tablet RxNorm: 724846 1 Tablet(s) PO Q8 as needed 04/29/2018 06/09/2018 Inactive doxycycline hyclate 100 mg tablet RxNorm: 6319784 1 Tablet(s) PO BID 04/29/2018 05/12/2018 Inactive Cymbalta 30 mg capsule,delayed release RxNorm: 449215 1 Capsule(s) PO QAM 03/13/2018 10/08/2018 Inactive Lexapro 10 mg tablet RxNorm: 606561 1 Tablet(s) PO QPM 201703/03/2018 Inactive Toujeo SoloStar U-300 Insulin 300 unit/mL (1.5 mL) subcutaneous pen RxNorm: 5358585 20 Unit(s) daily 02/28/2018 Inactive Protonix 40 mg tablet,delayed release RxNorm: 700612 1 Tablet(s) PO daily 01/29/2018 06/09/2018 Inactive clonazepam 1 mg tablet RxNorm: 650259 1 Tablet(s) PO Q8 as needed 12/12/2017 03/10/2018 Inactive Tamiflu 75 mg capsule RxNorm: 233920 1 Capsule(s) PO BID 201712/03/2017 Inactive doxycycline hyclate 100 mg capsule RxNorm: 8478308 1 Capsule(s) PO BID 09/07/2017 09/20/2017 Inactive doxycycline hyclate 100 mg capsule RxNorm: 8548095 1 Capsule(s) PO BID 08/27/2017 09/06/2017 Inactive prednisone 20 mg tablet RxNorm: 897250 2 Tablet(s) PO daily 08/31/2017 Inactive clopidogrel 75 mg tablet RxNorm: 683205 1 Tablet(s) PO daily 06/09/2018 Inactive atorvastatin 40 mg tablet RxNorm: 360448 1 Tablet(s) PO QHS 02/27/2018 Inactive losartan 25 mg tablet RxNorm: 272631 TAKE ONE TABLET BY MOUTH DAILY 08/22/2017 06/09/2018 Inactive Toujeo SoloStar 300 unit/mL (1.5 mL) subcutaneous insulin pen RxNorm: 4190593 45 Unit(s) daily 08/17/2017 08/20/2017 Inactive mupirocin 2 % topical ointment RxNorm: 199657 1 Application TOP TID to the lesions on chest 08/16/2017 08/25/2017 Inactive Toujeo SoloStar 300 unit/mL (1.5 mL) subcutaneous insulin pen RxNorm: 0852126 40 Unit(s) daily 08/16/2017 08/16/2017 Inactive valacyclovir 1 gram tablet RxNorm: 786660 1 Tablet(s) PO TID 08/01/2017 Inactive clonazepam 1 mg tablet RxNorm: 874504 1 Tablet(s) PO Q8 as needed 07/03/2017 09/30/2017 Inactive Levaquin 500 mg tablet RxNorm: 886968 1 Tablet(s) PO daily 06/25/2017 Inactive Levaquin 500 mg tablet RxNorm: 608418 1 Tablet(s) PO daily 06/21/2017 Inactive losartan 25 mg tablet RxNorm: 486877 1 Tablet(s) PO daily 201608/16/2017 Inactive nystatin 100,000 unit/mL oral suspension RxNorm: 596178 5 Milliliter(s) PO QID Swish et swallow 06/18/2017 06/17/2017 Inactive nystatin 100,000 unit/mL oral suspension RxNorm: 999112 5 Milliliter(s) PO QID Swish et swallow 06/18/2017 06/27/2017 Inactive Cipro 500 mg tablet RxNorm: 063464 1 Tablet(s) PO BID 201606/18/2017 Inactive Cipro 500 mg tablet RxNorm: 465911 1 Tablet(s) PO BID 201606/11/2017 Inactive Toujeo SoloStar 300 unit/mL (1.5 mL) subcutaneous insulin pen RxNorm: 4338391 INJECT 10 UNITS UNDER THE SKIN DAILY 06/12/2017 08/15/2017 Inactive Keflex 500 mg capsule RxNorm: 556810 1 Capsule(s) PO TID 201606/13/2017 Inactive doxycycline hyclate 100 mg capsule RxNorm: 1759198 1 Capsule(s) PO BID 05/17/2017 05/21/2017 Inactive doxycycline hyclate 100 mg capsule RxNorm: 0923328 1 Capsule(s) PO BID 05/11/2017 05/16/2017 Inactive losartan 25 mg tablet RxNorm: 321495 1 Tablet(s) PO daily 201606/17/2017 Inactive atorvastatin 40 mg tablet RxNorm: 558039 1 Tablet(s) PO daily 03/01/2017 08/23/2017 Inactive clopidogrel 75 mg tablet RxNorm: 149849 1 Tablet(s) PO daily 08/23/2017 Inactive Flonase Allergy Relief 50 mcg/actuation nasal spray, suspension RxNorm: 4572350 2 Sherman NASAL daily 02/16/20172016 Inactive Augmentin 875 mg-125 mg tablet RxNorm: 734952 1 Tablet(s) PO BID 02/16/2017 02/22/2017 Inactive GET PROBIOTIC TO TAKE WHILE ON ABX Tamiflu 75 mg capsule RxNorm: 879375 1 Capsule(s) PO BID 201602/20/2017 Inactive ceftriaxone 500 mg solution for injection RxNorm: 5465465 1 Milliliter(s) Inj 02/16/2017 02/16/2017 Inactive Kenalog 40 mg/mL suspension for injection RxNorm: 1173822 1 Milliliter(s) Inj 02/16/2017 02/16/2017 Inactive Toujeo SoloStar 300 unit/mL (1.5 mL) subcutaneous insulin pen RxNorm: 0312012 25 Unit(s) SQ QAM 02/12/2017 06/10/2017 Inactive Toujeo SoloStar 300 unit/mL (1.5 mL) subcutaneous insulin pen RxNorm: 4620762 10 Unit(s) SQ QAM 02/05/2017 02/11/2017 Inactive lisinopril 10 mg tablet RxNorm: 460698 1 Tablet(s) PO daily 02/28/2017 Inactive atorvastatin 40 mg tablet RxNorm: 762789 1 Tablet(s) PO daily 02/01/2017 02/28/2017 Inactive doxycycline hyclate 100 mg capsule RxNorm: 5260266 1 Capsule(s) PO BID 02/01/2017 02/10/2017 Inactive clonazepam 1 mg tablet RxNorm: 491062 1 Tablet(s) PO Q8 as needed 10/09/2016 01/05/2017 Inactive ceftriaxone 1 gram solution for injection RxNorm: 9021627 Inj 10/06/2016 10/06/2016 Inactive cyclobenzaprine 10 mg tablet RxNorm: 917616 1/2-1 Tablet(s) PO TID PRN 07/18/2016 01/28/2017 Inactive clonazepam 1 mg tablet RxNorm: 416144 1 Tablet(s) PO Q8 as needed 05/31/2016 05/29/2016 Inactive clonazepam 1 mg tablet RxNorm: 609515 1 Tablet(s) PO Q8 as needed 05/31/2016 08/28/2016 Inactive Toujeo SoloStar 300 unit/mL (1.5 mL) subcutaneous insulin pen RxNorm: 0691394 10 Unit(s) SQ daily 05/23/2016 01/28/2017 Inactive Crestor 10 mg tablet RxNorm: 840125 1 Tablet(s) PO QHS 201501/28/2017 Inactive Crestor 10 mg tablet RxNorm: 789084 1 Tablet(s) PO QHS 201505/18/2016 Inactive clonazepam 1 mg tablet RxNorm: 005576 1 Tablet(s) PO Q8 as needed 04/25/2016 05/30/2016 Inactive prednisone 20 mg tablet RxNorm: 201735 3 Tablet(s) PO daily 06/201602/10/2016 Inactive prednisone 20 mg tablet RxNorm: 510096 3 Tablet(s) PO daily 06/201605/14/2016 Inactive Kenalog 40 mg/mL suspension for injection RxNorm: 5786239 Milliliter(s) Inj 01/20/2016 01/20/2016 Inactive aspirin 81 mg tablet,delayed release RxNorm: 043081 1 Tablet(s) PO daily No Start Date Active Brilinta 90 mg tablet RxNorm: 9414844 1 Tablet(s) PO BID No Start Date Active acetaminophen 500 mg tablet RxNorm: 368192 1-2 Tablet(s) PO as needed No Start Date Active clopidogrel 75 mg tablet RxNorm: 570998 1 Tablet(s) PO daily No Start Date 02/28/2017 Inactive Novolog Flexpen U-100 Insulin aspart 100 unit/mL subcutaneous RxNorm: 4238509 5 units with breakfast lunch and 10 supper Unit(s) SQ No Start Date 06/17/2018 Inactive clonazepam 1 mg tablet RxNorm: 823444 1 Tablet(s) PO QHS No Start Date 04/24/2016 Inactive Coreg 6.25 mg tablet RxNorm: 124678 1 Tablet(s) PO BID No Start Date 09/29/2018 Inactive acyclovir 400 mg tablet RxNorm: 865903 2 Tablet(s) PO 5x daily No Start Date 02/28/2017 Inactive Lyrica 50 mg capsule RxNorm: 831535 Capsule(s) PO BID No Start Date 06/09/2018 Inactive Vraylar 3 mg capsule RxNorm: 5199315 1 Capsule(s) PO daily No Start Date 03/12/2018 Inactive valsartan 80 mg tablet RxNorm: 215621 1 Tablet(s) PO daily No Start Date 10/22/2018 Inactive Medication Administered Medication Codes Instructions Start Date Status ketorolac 60 mg/2 mL intramuscular solution RxNorm: 8740342 Milliliter 10/21/2018 No longer Active Kenalog 40 mg/mL suspension for injection RxNorm: 5522329 1.5Milliliter 09/30/2018 No longer Active Kenalog 40 mg/mL suspension for injection RxNorm: 6043651 Milliliter 09/11/2018 No longer Active Kenalog 40 mg/mL suspension for injection RxNorm: 5186667 Milliliter 06/28/2018 No longer Active ketorolac 30 mg/mL injection solution RxNorm: 922275 2Milliliter 05/02/2018 No longer Active ceftriaxone 500 mg solution for injection RxNorm: 7887054 1Milliliter 02/16/2017 No longer Active Kenalog 40 mg/mL suspension for injection RxNorm: 9893267 1Milliliter 02/16/2017 No longer Active ceftriaxone 1 gram solution for injection RxNorm: 4826565 10/06/2016 No longer Active Kenalog 40 mg/mL suspension for injection RxNorm: 6986650 Milliliter 01/20/2016 No longer Active Immunizations Vaccine Codes Date Status Influenza CVX: 141 07/22/2018 completed Influenza CVX: 141 08/16/2017 completed Assessments Condition Codes Effective Dates Cough ICD-10: R05 ICD-9: 786.2 10/30/2018 Pneumonia due to other Gram-negative bacteria ICD-10: J15.6 ICD-9: 482.83 10/30/2018 Pain in joints of right hand ICD-10: [...] Reason For Visit Effective Dates Notes cough 10/30/2018 finger pain 10/24/2018 hand pain [...] Item Item Code Result Date Culture Sputum 046149 LOWER RESPIRATORY TRACT CULTURE SEE NOTES 10/16/2018 LIPID GRP 0891223 CHOLESTEROL TNP:Duplicate Order 09/10/2018 LIPID GRP Triglyceride TNP:Duplicate Order 2017 LIPID GRP HDL CHOLESTEROL TNP:Duplicate Order 2017 LIPID GRP Chol/HDL Ratio TNP:Duplicate Order 2017 LIPID GRP LDL Cholesterol TNP:Duplicate Order 2017 A1C HPLC 2913927 Hgb A1c 72921-3 TNP:Duplicate Order 2017 C Diff An [id number] GDH TNP:Lab Request 06/22/2018 C Diff An [id number] Toxin A/B TNP:Lab Request 06/22/2018 C Diff An [id number] C Diff Analyzer TNP:Lab Request 2017 C Diff An [id number] IC OK? TNP:Lab Request 06/22/2018 CBC [id number] WBC 6.4 10e9/L 05/02/2018 CBC 4192652 RBC 5.60 10e12/L 05/02/2018 CBC 9708876 HEMOGLOBIN 17.0 g/dL 05/02/2018 CBC 5136832 HEMATOCRIT 48.0 % 05/02/2018 CBC 1610955 MCV 85.7 fL 05/02/2018 CBC 8502783 MCH 30.4 pg 05/02/2018 CBC 0668385 MCHC 35.4 g/dL 05/02/2018 CBC 3894517 PLATELET COUNT 166 10e9/L 05/02/2018 CBC 0580628 Mean Plt Volume 11.6 fL 05/02/2018 CBC 9270065 Neut Auto 48.6 % 05/02/2018 CBC 5797218 Lymph Auto 41.7 % 05/02/2018 CBC 6015037 Reagan Auto 8.1 % 05/02/2018 CBC 5536137 RDW 13.1 % 05/02/2018 CBC 4387767 Eos Auto 1.1 % 05/02/2018 CBC 9922838 Baso Auto 0.5 % 05/02/2018 CBC 6904733 Neutrophil Abs 3.11 10e9/L 05/02/2018 CBC 4111637 Lymphocyte Abs 2.67 10e9/L 05/02/2018 CBC 5520460 Monocyte Abs 0.52 10e9/L 05/02/2018 CBC 2172163 Eosinophil Abs 0.07 10e9/L 05/02/2018 CBC 7611590 RDW-SD 40.0 fL 05/02/2018 CBC 1493480 Basophil Abs 0.03 10e9/L 05/02/2018 CHEM 14 9753290 AST 17 U/L 05/02/2018 CHEM 14 6616010 ALT 17 U/L 05/02/2018 CHEM 14 7589667 BUN 17 mg/dL 05/02/2018 CHEM 14 6884257 ALBUMIN 4.0 g/dL 05/02/2018 CHEM 14 9665055 CHLORIDE 97 mmol/L 05/02/2018 CHEM 14 0124195 Bili Total 0.9 mg/dL 05/02/2018 CHEM 14 7366817 ALK PHOS 67 U/L 05/02/2018 CHEM 14 2720618 SODIUM 135 mmol/L 05/02/2018 CHEM 14 7909559 CREATININE 1.18 mg/dL 05/02/2018 CHEM 14 1305289 CALCIUM 9.4 mg/dL 05/02/2018 CHEM 14 6163997 POTASSIUM 4.4 mmol/L 05/02/2018 CHEM 14 8574872 TOTAL PROTEIN 6.9 g/dL 05/02/2018 CHEM 14 7980159 GLUCOSE 316 mg/dL 05/02/2018 CHEM 14 7633660 Bicarbonate 29 mmol/L 05/02/2018 CHEM 14 2897940 AGAP 9 mmol/L 05/02/2018 MEAN GLUC 3418580 Calc Mean Gluc 283 mg/dL 05/02/2018 A1C HPLC 2921976 Hgb A1c 45045-2 11.5 % 05/02/2018 GFR CALC 1778417 GFR Non Afr Amr >60 mL/min 05/02/2018 GFR CALC 5123774 GFR Afr Amr >60 mL/min 05/02/2018 JI Gold 3600332 JIC Gold Complete 02/28/2018 GFR CALC 0319482 GFR Non Afr Amr >60 mL/min 02/28/2018 GFR CALC 3994356 GFR Afr Amr >60 mL/min 02/28/2018 UA W/CII 8146409 UA Urine Appear Normal 02/28/2018 UA W/CII 9170527 UA Protein 1+ 02/28/2018 UA W/CII 6458152 UA Hemoglobin Negative 02/28/2018 UA W/CII 8045750 UA Glucose 4+ 02/28/2018 UA W/CII 1647679 UA Ketones Trace 02/28/2018 UA W/CII 3331996 UA pH 5.5 02/28/2018 UA W/CII 9502803 U Spec Kathryn 1.015 02/28/2018 UA W/CII 4095658 UA Bilirubin Negative 02/28/2018 UA W/CII 0881843 UA Nitrite NEG 02/28/2018 UA W/CII 1787798 UA Leuk Esteras Negative 02/28/2018 MICR 6050465 UA WBC/hpf 1 02/28/2018 MICR 8047844 UA RBC hpf 2 02/28/2018 MICR 6773338 UA WBC auto 3.8 /uL 02/28/2018 MICR 4904681 UA RBC auto 12.2 /uL 02/28/2018 MICR 4063797 UA SQ EPI auto 2.3 /uL 02/28/2018 MICR 2411222 UA H Cast auto 0.10 /uL 02/28/2018 CBC 5505386 WBC 6.4 10e9/L 02/28/2018 CBC 8773377 RBC 5.51 10e12/L 02/28/2018 CBC 9366527 HEMOGLOBIN 16.7 g/dL 02/28/2018 CBC 0307431 HEMATOCRIT 46.9 % 02/28/2018 CBC 6083404 MCV 85.1 fL 02/28/2018 CBC 8205005 MCH 30.3 pg 02/28/2018 CBC 0413787 MCHC 35.6 g/dL 02/28/2018 CBC 8604762 PLATELET COUNT 173 10e9/L 02/28/2018 CBC 6320923 Mean Plt Volume 11.6 fL 02/28/2018 CBC 5104597 Neut Auto 51.8 % 02/28/2018 CBC 8215505 Lymph Auto 39.9 % 02/28/2018 CBC 8876930 Reagan Auto 7.3 % 02/28/2018 CBC 6319600 Eos Auto 0.8 % 02/28/2018 CBC 7960076 RDW 13.3 % 02/28/2018 CBC 9517760 Baso Auto 0.2 % 02/28/2018 CBC 2145159 Neutrophil Abs 3.32 10e9/L 02/28/2018 CBC 6905417 Lymphocyte Abs 2.55 10e9/L 02/28/2018 CBC 8777584 Monocyte Abs 0.47 10e9/L 02/28/2018 CBC 5845804 Eosinophil Abs 0.05 10e9/L 02/28/2018 CBC 0960587 Basophil Abs 0.01 10e9/L 02/28/2018 CBC 1322107 RDW-SD 40.8 fL 02/28/2018 CHEM 14 3344212 AST 17 U/L 02/28/2018 CHEM 14 0368576 ALT 17 U/L 02/28/2018 CHEM 14 7872542 BUN 20 mg/dL 02/28/2018 CHEM 14 4467119 ALBUMIN 4.1 g/dL 02/28/2018 CHEM 14 5067772 CHLORIDE 97 mmol/L 02/28/2018 CHEM 14 7776199 Bili Total 1.3 mg/dL 02/28/2018 CHEM 14 2741738 ALK PHOS 78 U/L 02/28/2018 CHEM 14 1237717 SODIUM 135 mmol/L 02/28/2018 CHEM 14 9799864 CREATININE 1.09 mg/dL 02/28/2018 CHEM 14 2810370 CALCIUM 9.6 mg/dL 02/28/2018 CHEM 14 7043709 POTASSIUM 3.8 mmol/L 02/28/2018 CHEM 14 7968887 TOTAL PROTEIN 7.3 g/dL 02/28/2018 CHEM 14 2652896 GLUCOSE 349 mg/dL 02/28/2018 CHEM 14 0907795 Bicarbonate 29 mmol/L 02/28/2018 CHEM 14 2329668 AGAP 9 mmol/L 02/28/2018 [place] Spotted Fever Igg/Igm 907023 FEI MT SPOTTED FEVER IGM EIA . 09/05/2017 [place] Spotted Fever Igg/Igm 112611 RMSF, IGM 0.17 index 09/05/2017 [place] Spotted Fever Igg/Igm 340205 FEI MT SPOTTED FEVER IGG EIA FLEX . 09/05/2017 [place] Spotted Fever Igg/Igm 969826 RMSF, IGG SCREEN-FLEX Positive 09/05/2017 Fei Mtn Spot'D Fev Igg 783466 RMSF, IGG -TITER IFA <1:64 11/2016 Ehrlichia Chaffeensis Antibody Igm 319956 EHRLICHIA CHAFFEENSIS IGM < 1:16 09/03/2017 Ehrlichia [place]affeensis Antibody Igg 355251 EHRLICHIA CHAFFEENSIS IGG <1:64 09/03/2017 Lymes Disease Total Antibodies With Western Blot Reflex B. BURGDORFERI, IGG/IGM 0.223 08/30/2017 Lymes Disease Total Antibodies With Western Blot Reflex C-Reactive Protein Qnt Crqnt CRP 0.00 mg/dl 08/27/2017 Sed Rate Ord21 ESR 8 mm/hr 08/27/2017 Comp Metabolic Dmm469 NA 135 mEq/L 08/16/2017 Comp Metabolic Mxp427 K 4.1 mEq/L 08/16/2017 Comp Metabolic Sjp507 CL 98 mEq/L 08/16/2017 Comp Metabolic Und611 CO2 28.0 mEq/L 08/16/2017 Comp Metabolic Vwr877 ANION GAP 13 08/16/2017 Comp Metabolic Cwp895 GLUCOSE 299 mg/dL 08/16/2017 Comp Metabolic Zog623 Creat 0.9 mg/dL 08/16/2017 Comp Metabolic Pvw557 eGFR 90 ml/min/1.73m2 08/16/2017 Comp Metabolic Orf499 BUN 20 mg/dL 08/16/2017 Comp Metabolic Zgc293 B/C Ratio 21.5 Ratio 08/16/2017 Comp Metabolic Bmi656 CALCIUM 9.2 mg/dL 08/16/2017 Comp Metabolic Hbq665 ALK PHOS 84 U/L 08/16/2017 Comp Metabolic Ctz807 AST(SGOT) 19 U/L 08/16/2017 Comp Metabolic Rwz415 ALT(SGPT) 24 U/L 08/16/2017 Comp Metabolic Kjq529 BILI T 1.1 mg/dL 08/16/2017 Comp Metabolic Npg577 ALBUMIN 4.2 g/dL 08/16/2017 Comp Metabolic Zdx462 TPRO 7.2 g/dL 08/16/2017 Comp Metabolic Bpo454 GLOB 3.0 g/dL 08/16/2017 Comp Metabolic Awo922 A/G Ratio 1.4 Ratio 08/16/2017 Comp Metabolic Jai439 Osmo 284 mOsmo 08/16/2017 %Hba1C Pul438 % HbA1c 31595-4 12.5 % 08/16/2017 %Hba1C Jad782 Gluc Ave 312 mg/dL 08/16/2017 Urine Culture Ucult Complete NO Growth Day 2 06/23/2017 Urine Culture Ucult Preliminary NO Growth Day 1 06/23/2017 C RAP A SC [id number] Strep A Negative 06/08/2017 %Hba1C Pdc792 % HbA1c 74375-4 9.5 % 05/04/2017 %Hba1C Oov876 Gluc Ave 226 mg/dL 05/04/2017 Tsh Ord6 [...] 31.7 pg 05/04/2017 Cbc With Differential Ord2 Reagan% 8.5 % 05/04/2017 Cbc With Differential Ord2 [...] 2.48 K/ul 05/04/2017 Cbc With Differential Ord2 Reagan ABS# 0.5 K/ul 05/04/2017 Cbc With Differential Ord2 Eos ABS# 0.1 K/ul 05/04/2017 Cbc With Differential Ord2 Baso ABS# 0.0 K/ul 05/04/2017 Comp Metabolic Fqb001 NA 135 mEq/L 05/04/2017 Comp Metabolic Bpt346 K 4.2 mEq/L 05/04/2017 Comp Metabolic Chx432 CL 99 mEq/L 05/04/2017 Comp Metabolic Cmn316 CO2 26.0 mEq/L 05/04/2017 Comp Metabolic Khm015 ANION GAP 14 05/04/2017 Comp Metabolic Pqd938 GLUCOSE 277 mg/dL 05/04/2017 Comp Metabolic Xij948 Creat 0.9 mg/dL 05/04/2017 Comp Metabolic Kud255 eGFR 96 ml/min/1.73m2 05/04/2017 Comp Metabolic Rsg156 BUN 23 mg/dL 05/04/2017 Comp Metabolic Irw227 B/C Ratio 26.1 Ratio 05/04/2017 Comp Metabolic Mhg023 CALCIUM 8.9 mg/dL 05/04/2017 Comp Metabolic Yud790 ALK PHOS 81 U/L 05/04/2017 Comp Metabolic Tcv967 AST(SGOT) 21 U/L 05/04/2017 Comp Metabolic Jsh144 ALT(SGPT) 27 U/L 05/04/2017 Comp Metabolic Oyp399 BILI T 1.2 mg/dL 05/04/2017 Comp Metabolic Gyx922 ALBUMIN 4.0 g/dL 05/04/2017 Comp Metabolic Wyf096 TPRO 6.7 g/dL 05/04/2017 Comp Metabolic Epr196 GLOB 2.7 g/dL 05/04/2017 Comp Metabolic Egw084 A/G Ratio 1.5 Ratio 05/04/2017 Comp Metabolic Yxy387 Osmo 284 mOsmo 05/04/2017 C A/B FLU 7350975 Influenza A Scr Negative 02/16/2017 C A/B FLU 4521040 Influenza B Scr Positive 02/16/2017 Cbc With [...] 39.7 % 05/23/2016 Cbc With Differential Ord2 Reagan% 8.8 % 05/23/2016 Cbc With Differential Ord2 [...] 2.07 K/ul 05/23/2016 Cbc With Differential Ord2 Reagan ABS# 0.5 K/ul 05/23/2016 Cbc With Differential Ord2 Eos ABS# 0.1 K/ul 05/23/2016 Cbc With Differential Ord2 Baso ABS# 0.0 K/ul 05/23/2016 Lipid Ord30 CHOL 397 mg/dL 05/17/2016 Lipid Ord30 HDL 48.0 mg/dl 05/17/2016 Lipid Ord30 TRIG 578 mg/dL 05/17/2016 Lipid Ord30 LDL Unable to calculate Due to elevated triglycerides mg/dL 05/17/2016 Lipid Ord30 C/HDL 8.3 Ratio 05/17/2016 %Hba1C Cjd462 % HbA1c 79854-6 12.4 % 05/16/2016 %Hba1C Rwm635 Gluc Ave 309 mg/dL 05/16/2016 Cbc With [...] 87.4 fl 05/15/2016 Cbc With Differential Ord2 Reagan% 7.8 % 05/15/2016 Cbc With Differential Ord2 [...] 2.04 K/ul 05/15/2016 Cbc With Differential Ord2 Reagan ABS# 0.5 K/ul 05/15/2016 Cbc With Differential Ord2 Eos ABS# 0.1 K/ul 05/15/2016 Cbc With Differential Ord2 Baso ABS# 0.0 K/ul 05/15/2016 Tsh Ord6 hTSH II 1.70 uIU/mL 05/15/2016 Comp Metabolic Eyr430 NA 135 mEq/L 05/15/2016 Comp Metabolic Uzr182 K 3.9 mEq/L 05/15/2016 Comp Metabolic Hkr899 CL 96 mEq/L 05/15/2016 Comp Metabolic Gck340 CO2 27.0 mEq/L 05/15/2016 Comp Metabolic Uvf595 ANION GAP 16 05/15/2016 Comp Metabolic Iuo551 GLUCOSE 183 mg/dL 05/15/2016 Comp Metabolic Rzt270 Creat 1.1 mg/dL 05/15/2016 Comp Metabolic Xhs053 eGFR 71 ml/min/1.73m2 05/15/2016 Comp Metabolic Aul231 BUN 17 mg/dL 05/15/2016 Comp Metabolic Bmh200 B/C Ratio 14.9 Ratio 05/15/2016 Comp Metabolic Kov464 CALCIUM 9.6 mg/dL 05/15/2016 Comp Metabolic Cgh961 ALK PHOS 100 U/L 05/15/2016 Comp Metabolic Xqy487 AST(SGOT) 20 U/L 05/15/2016 Comp Metabolic Yag942 ALT(SGPT) 20 U/L 05/15/2016 Comp Metabolic Oxh959 BILI T 1.3 mg/dL 05/15/2016 Comp Metabolic Mmy130 ALBUMIN 4.6 g/dL 05/15/2016 Comp Metabolic Usz645 TPRO 8.1 g/dL 05/15/2016 Comp Metabolic Gpv250 GLOB 3.5 g/dL 05/15/2016 Comp Metabolic Joo028 A/G Ratio 1.3 Ratio 05/15/2016 Comp Metabolic Lhd984 Osmo 276 mOsmo 05/15/2016 Review of Systems System Result Effective Dates Constitutional recent illness 10/30/2018 Constitutional No anorexia [...] lips 06/04/2018 None Full Exam - General 1995 Ears/Nose/Throat lips/teeth/gingiva Overall: normal dentition 06/04/2018 None [...] of skin Location: face 05/04/2017 patch left yazdanism Full Exam - General 1994 Constitutional general [...] CPT-4: J3301 09/30/2018 THER/PROPH/DIAG INJ SC/IM CPT-4: 70061 09/11/2018 TRIAMCINOLONE ACET INJ NOS CPT-4: J3301 09/11/2018 IMMUNIZATION ADMIN CPT -4: 23915 07/22/2018 FLU VAC NO PRSV 4 MENA 3 YRS+ CPT-4: 02412 07/22/2018 TRIAMCINOLONE ACET INJ NOS CPT-4: J3301 06/28/2018 KETOROLAC TROMETHAMINE INJ CPT-4: J1885 05/02/2018 FLU VAC NO PRSV 4 MENA 3 YRS+ CPT-4: 24097 08/16/2017 IMMUNIZATION ADMIN CPT -4: 66709 08/16/2017 URINALYSIS NONAUTO W/O SCOPE CPT-4: 13038 06/21/2017 TRIAMCINOLONE ACET INJ NOS CPT-4: J3301 05/04/2017 THER/PROPH/DIAG INJ SC/IM CPT-4: 89037 05/04/2017 TRIAMCINOLONE ACET INJ NOS CPT-4: J3301 02/16/2017 ROCEPHIN, PER 250 MG CPT-4: J0696 02/16/2017 ROCEPHIN, PER 250 MG CPT-4: J0696 10/06/2016 URINALYSIS NONAUTO W/O SCOPE CPT-4: 76850 07/18/2016 TRIAMCINOLONE ACET INJ NOS CPT-4: J3301 01/20/2016 Vital Signs Date Vital 10/30/2018 Blood Pressure 1: 130/72 Code : 8480-6 BMI: 33.3 Code : 16642-4 Heart Rate 1 : 83 bpm Height: 6'2" SpO2: 95% Temperature: 36.5 (C) / 97.7 (F) Weight: 259 lbs 10/24/2018 Blood Pressure 1: 130/70 Code : 8480-6 Heart Rate 1: 95 bpm Height: 6'2" SpO2: 96% 10/23/2018 Blood Pressure 1: 100/70 Code : 8480-6 Blood Pressure 2: 102/70 Code: 8480-6 BMI: 33.3 Code: 34693-2 Heart Rate 1: 106 bpm Height: 6'2" SpO2: 98% Weight: 259 lbs 10/21/2018 Blood Pressure 1: 140/90 Code : 8480-6 BMI: 32.9 Code : 14894-5 Heart Rate 1 : 96 bpm Height: 6'2" SpO2: 92% Weight: 256 lbs 10/17/2018 Blood Pressure 1: 110/68 Code : 8480-6 BMI: 32.9 Code : 99143-4 Heart Rate 1 : 82 bpm Height: 6'2" SpO2: 97% Weight: 256 lbs 10/14/2018 Blood Pressure 1: 124/70 Code : 8480-6 BMI: 33.6 Code : 81179-3 Heart Rate 1 : 76 bpm Height: 6'2" SpO2: 99% Temperature: 36.3 (C) / 97.3 (F) Weight: 262 lbs 09/30/2018 Blood Pressure 1: 138/82 Code : 8480-6 BMI: 33.6 Code : 96292-0 Heart Rate 1 : 82 bpm Height: 6'2" SpO2: 98% Temperature: 36.3 (C) / 97.3 (F) Weight: 262 lbs 09/09/2018 Blood Pressure 1: 140/80 Code : 8480-6 BMI: 33.0 Code : 18519-2 Heart Rate 1 : 97 bpm Height: 6'2" SpO2: 93% Temperature: 36.8 (C) / 98.2 (F) Weight: 257 lbs 07/22/2018 Blood Pressure 1: 120/78 Code : 8480-6 BMI: 31.6 Code : 75245-4 Heart Rate 1 : 87 bpm Height: 6'2" SpO2: 98% Weight: 246 lbs 07/16/2018 Blood Pressure 1: 132/74 Code : 8480-6 BMI: 31.2 Code : 36017-8 Heart Rate 1 : 90 bpm Height: 6'2" SpO2: 96% Weight: 243 lbs 07/01/2018 Blood Pressure 1: 142/82 Code : 8480-6 BMI: 31.8 Code : 72476-7 Heart Rate 1 : 88 bpm Height: 6'2" SpO2: 98% Weight: 248 lbs 06/28/2018 Blood Pressure 1: 132/76 Code : 8480-6 BMI: 31.8 Code : 96442-1 Heart Rate 1 : 107 bpm Height: 6'2" SpO2: 98% Temperature: 37.9 (C) / 100.3 (F) Weight: 248 lbs 06/18/2018 Blood Pressure 1: 138/82 Code : 8480-6 BMI: 31.8 Code : 75054-5 Heart Rate 1 : 82 bpm Height: 6'2" SpO2: 97% Weight: 248 lbs 06/04/2018 Blood Pressure 1: 128/84 Code : 8480-6 BMI: 33.9 Code : 38113-8 Heart Rate 1 : 86 bpm Height: 6'2" SpO2: 95% Weight: 264 lbs 05/13/2018 Blood Pressure 1: 130/80 Code : 8480-6 BMI: 31.1 Code : 20242-2 Heart Rate 1 : 100 bpm Height: 6'2" SpO2: 94% Weight: 242 lbs 05/02/2018 Blood Pressure 1: 134/84 Code : 8480-6 BMI: 31.2 Code : 12719-5 Heart Rate 1 : 93 bpm Height: 6'2" SpO2: 98% Weight: 243 lbs 04/29/2018 Blood Pressure 1: 142/88 Code : 8480-6 BMI: 31.6 Code : 88481-4 Heart Rate 1 : 96 bpm Height: 6'2" SpO2: 96% Temperature: 36.7 (C) / 98.1 (F) Weight: 246 lbs 03/13/2018 Blood Pressure 1: 120/76 Code : 8480-6 BMI: 30.9 Code : 14943-2 Heart Rate 1 : 112 bpm Height: 6'2" SpO2: 97% Weight: 241 lbs 03/07/2018 Blood Pressure 1: 108/78 Code : 8480-6 BMI: 30.0 Code : 41876-1 Heart Rate 1 : 87 bpm Height: 6'2" SpO2: 98% Weight: 234 lbs 02/28/2018 Blood Pressure 1: 106/74 Code : 8480-6 BMI: 30.0 Code : 82177-5 Heart Rate 1 : 101 bpm Height: 6'2" SpO2: 98% Temperature: 36.4 (C) / 97.5 (F) Weight: 234 lbs 02/13/2018 Blood Pressure 1: 110/78 Code : 8480-6 BMI: 30.0 Code : 79388-5 Heart Rate 1 : 106 bpm Height: 6'2" SpO2: 98% Weight: 234 lbs 01/29/2018 Blood Pressure 1: 106/68 Code : 8480-6 BMI: 30.0 Code : 41642-3 Heart Rate 1 : 108 bpm Height: 6'2" SpO2: 98% Weight: 234 lbs 08/27/2017 Blood Pressure 1: 134/76 Code : 8480-6 Heart Rate 1: 98 bpm Height: SpO2: 97% Weight: 08/16/2017 Blood Pressure 1: 128/80 Code : 8480-6 BMI: 32.0 Code : 87408-7 Heart Rate 1 : 94 bpm Height: [...] Code : 8480-6 BMI: 31.8 Code : 20288-2 Heart Rate 1 : 102 bpm Height: [...] Code : 8480-6 BMI: 31.8 Code : 86149-1 Heart Rate 1 : 85 bpm Height: 6'2" SpO2: 96% Temperature: 36.6 (C) / 97.9 (F) Weight: 248 lbs 02/12/2017 Blood Pressure 1: 126/76 Code : 8480-6 BMI: 31.8 Code : 56990-1 Heart Rate 1 : 106 bpm Height: 6'2" SpO2: 91% Weight: 248 lbs 02/05/2017 Blood Pressure 1: 146/86 Code : 8480-6 BMI: 31.9 Code : 90323-5 Heart Rate 1 : 98 bpm Height: 6'2" SpO2: 87% Temperature: 36.7 (C) / 98.0 (F) Weight: 248 lbs 8 oz 01/29/2017 Blood Pressure 1: 132/84 Code : 8480-6 BMI: 31.8 Code : 84023-1 Heart Rate 1 : 83 bpm Height: 6'2" SpO2: 97% Weight: 248 lbs 10/13/2016 Blood Pressure 1: 128/72 Code : 8480-6 Heart Rate 1: 86 bpm SpO2: 94% 10/09/2016 Blood Pressure 1: 128/68 Code : 8480-6 Heart Rate 1: 136 bpm SpO2: 94% Temperature: 36.8 (C) / 98.2 (F) 10/06/2016 Blood Pressure 1: 140/80 Code : 8480-6 BMI: 32.1 Code : 16733-2 Heart Rate 1 : 94 bpm Height: 6'2" SpO2: 95% Weight: 250 lbs 07/18/2016 Blood Pressure 1: 128/86 Code : 8480-6 BMI: 32.1 Code : 51105-1 Heart Rate 1 : 89 bpm Height: 6'2" SpO2: 96% Weight: 250 lbs 06/22/2016 Blood Pressure 1: 118/70 Code : 8480-6 BMI: 32.1 Code : 01187-7 Heart Rate 1 : 70 bpm Height: 6'2" SpO2: 97% Weight: 250 lbs 05/23/2016 Blood Pressure 1: 128/80 Code : 8480-6 BMI: 32.1 Code : 90796-4 Heart Rate 1 : 76 bpm Height: 6'2" SpO2: 98% Weight: 250 lbs 05/15/2016 Blood Pressure 1: 110/90 Code : 8480-6 BMI: 31.3 Code : 00809-4 Heart Rate 1 : 111 bpm Height: 6'2" SpO2: 97% Temperature: 36.6 (C) / 97.8 (F) Weight: 244 lbs 01/20/2016 Blood Pressure 1: 128/76 Code : 8480-6 BMI: 33.0 Code : 29547-0 Heart Rate 1 : 103 bpm Height: 6'2" SpO2: 95% Weight: 257 lbs Functional Status No Functional Status data History of Present Illness Symptom Name Status Result Effective Date Notes Location in the throat 10/30/2018 None Quality [...] data Encounters Encounter Performer Location Codes Date ([id number]) 07797 EST. PATIENT, LEVEL III Diagnosis: Pneumonia due to other Gram-negative bacteria[ICD10: J15.6] Diagnosis: Cough[ICD10: R05] Melida Ha MD, [facility] CPT-4: 39507 10/30/2018 ([id number]) 23611 EST. PATIENT, LEVEL II Diagnosis: Pain in joints of right hand[ICD10: M25.541] Diagnosis: Trigger finger, right middle finger[ICD10: M65.331] Marcela Ha MD, [facility] CPT-4: 23960 10/24/2018 ([id number]) 27448 EST. PATIENT, LEVEL IV Diagnosis: Essential (primary) hypertension[ICD10: I10] Diagnosis: Type 2 diabetes mellitus with foot ulcer[ICD10: E11.621] Melida Ha MD, [facility] CPT-4: 90738 10/23/2018 ([id number]) 04963 EST. PATIENT, LEVEL III Diagnosis: Cellulitis of right finger[ICD10: L03.011] Diagnosis: Type 2 diabetes mellitus with foot ulcer[ICD10: E11.621] Diagnosis: Pain in right hand[ICD10: M79.641] Melida Ha MD, [facility] CPT-4: 75464 10/21/2018 [id number] EST. PATIENT, LEVEL III Diagnosis: Spontaneous ecchymoses[ICD10: R23.3] Diagnosis: Cellulitis of right lower limb[ICD10: L03.115] Diagnosis: Cellulitis of left lower limb[ICD10: L03.116] Madeline Ha MD, [facility] CPT-4: 99450 10/17/2018 ([id number]) 61162 EST. PATIENT, LEVEL III Diagnosis: Cough[ICD10: R05] Diagnosis: Acute bronchitis, unspecified[ICD10: J20.9] Melida Ha MD, [facility] CPT-4: 98972 10/14/2018 72331 EST. PATIENT, LEVEL III Diagnosis: Acute laryngopharyngitis[ICD10: J06.0] Diagnosis: Cough[ICD10: R05] Madeline Ha MD, [facility] CPT-4: 97663 09/30/2018 ([id number]) 45065 EST. PATIENT, LEVEL III Diagnosis: Acute recurrent maxillary sinusitis[ICD10: J01.01] Diagnosis: Cough[ICD10: R05] Diagnosis: Type 2 diabetes mellitus with hyperglycemia[ICD10: E11.65] Marcela Ha MD, [facility] CPT-4: 60484 09/09/2018 ([id number]) 66103 EST. PATIENT, LEVEL IV Diagnosis: Essential (primary) hypertension[ICD10: I10] Diagnosis: Mixed hyperlipidemia[ICD10: E78.2] Diagnosis: Bipolar disorder, current episode depressed, moderate[ICD10: F31.32] Diagnosis: Type 2 diabetes mellitus with other specified complication[ICD10: E11.69] Melida Ha MD, [facility] CPT-4: 80273 2017 ([id number]) 45366 EST. PATIENT, LEVEL III Diagnosis: Insomnia due to medical condition[ICD10: G47.01] Marcela Ha MD, [facility] CPT-4: 50524 07/16/2018 ([id number]) Miscellaneous no charge Diagnosis: Cough[ICD10: R05] Madeline Ha MD, [facility] CPT-4: 29894 07/01/2018 [id number] EST. PATIENT, LEVEL III Diagnosis: Cough[ICD10: R05] Diagnosis: Acute laryngopharyngitis[ICD10: J06.0] Diagnosis: Other allergic rhinitis[ICD10: J30.89] Madeline Ha MD, [facility] CPT-4: 25060 06/28/2018 ([id number]) 75837 EST. PATIENT, LEVEL IV Diagnosis: Type 2 diabetes mellitus with hyperglycemia[ICD10: E11.65] Diagnosis: Essential (primary) hypertension[ICD10: I10] Melida Ha MD, [facility] CPT-4: 59078 06/18/2018 ([id number]) 76749 EST. PATIENT, LEVEL IV Diagnosis: Type 2 diabetes mellitus with hyperglycemia[ICD10: E11.65] Diagnosis: Essential (primary) hypertension[ICD10: I10] Diagnosis: Localized edema[ICD10: R60.0] Melida Ha MD, [facility] CPT- 4: 36742 06/04/2018 ([id number]) 63147 EST. PATIENT, LEVEL III Diagnosis: Type 2 diabetes mellitus with hyperglycemia[ICD10: E11.65] Diagnosis: Myalgia[ICD10: M79.1] Diagnosis: Pain in right hip[ICD10: M25.551] Diagnosis: Pain in left hip[ICD10: M25.552] Marcela Ha MD, [facility] CPT-4: 28178 05/13/2018 ([id number]) 75166 EST. PATIENT, LEVEL III Diagnosis: Myalgia[ICD10: M79.1] Diagnosis: Pain in right hip[ICD10: M25.551] Diagnosis: Pain in left hip[ICD10: M25.552] Marcela Ha MD, [facility] CPT-4: 90111 05/02/2018 ([id number]) 82118 EST. PATIENT, LEVEL IV Diagnosis: Essential (primary) hypertension[ICD10: I10] Diagnosis: Type 2 diabetes mellitus with hyperglycemia[ICD10: E11.65] Diagnosis: Major depressive disorder, single episode, moderate[ICD10: F32.1] Diagnosis: Myalgia[ICD10: M79.1] Marcela Ha MD, [facility] CPT-4: 24818 04/29/2018 ([id number]) 41276 EST. PATIENT, LEVEL IV Diagnosis: Type 2 diabetes mellitus with hyperglycemia[ICD10: E11.65] Diagnosis: Essential (primary) hypertension[ICD10: I10] Diagnosis: Major depressive disorder, single episode, moderate[ICD10: F32.1] Melida Ha MD, [facility] CPT-4: 65798 03/13/2018 ([id number]) 80614 EST. PATIENT, LEVEL III Diagnosis: Type 2 diabetes mellitus with hyperglycemia[ICD10: E11.65] Diagnosis: Bipolar disorder, current episode depressed, moderate[ICD10: F31.32] Diagnosis: Orthostatic hypotension[ICD10: I95.1] Marcela Ha MD, [facility] CPT-4: 33977 03/07/2018 ([id number]) 51268 EST. PATIENT, LEVEL IV Diagnosis: Type 2 diabetes mellitus with hyperglycemia[ICD10: E11.65] Diagnosis: Major depressive disorder, single episode, moderate[ICD10: F32.1] Diagnosis: Orthostatic hypotension[ICD10: I95.1] Diagnosis: Other fatigue[ICD10: R53.83] Marcela Ha MD, [facility] CPT-4: 83160 02/28/2018 52324 EST. PATIENT, LEVEL IV Diagnosis: Other fatigue[ICD10: R53.83] Diagnosis: Other malaise[ICD10: R53.81] Diagnosis: Gastro-esophageal reflux disease without esophagitis[ICD10: K21.9] Madeline Ha MD, [facility] CPT-4: 08895 02/13/2018 ([id number]) 66757 EST. PATIENT, LEVEL IV Diagnosis: Type 2 diabetes mellitus with foot ulcer[ICD10: E11.621] Diagnosis: Essential (primary) hypertension[ICD10: I10] Diagnosis: Gastro-esophageal reflux disease without esophagitis[ICD10: K21.9] Marcela Ha MD, [facility] CPT-4: 52351 01/29/2018 69406 EST. PATIENT, LEVEL III Diagnosis: Other malaise[ICD10: R53.81] Diagnosis: Other fatigue[ICD10: R53.83] Diagnosis: Pain in right shoulder[ICD10: M25.511] Diagnosis: Pain in left shoulder[ICD10: M25.512] Madeline Ha MD, [facility] CPT-4: 28630 08/27/2017 ([id number]) 76178 EST. PATIENT, LEVEL IV Diagnosis: Essential (primary) hypertension[ICD10: I10] Diagnosis: Type 2 diabetes mellitus with hyperglycemia[ICD10: E11.65] Diagnosis: VACCIN FOR INFLUENZA[ICD10: Z23] Melida Ha MD, [facility] CPT-4: 63016 08/16/2017 10920 EST. PATIENT, LEVEL III Diagnosis: Zoster without complications[ICD10: B02.9] Madeline Ha MD, [facility] CPT-4: 73181 07/26/2017 ([id number]) 62501 EST. PATIENT, LEVEL III Diagnosis: Cellulitis of right lower limb[ICD10: L03.115] Marcela Ha MD [facility] CPT-4: 32292 07/03/2017 54297 EST. PATIENT, LEVEL II Diagnosis: Laceration without foreign body of left forearm, initial encounter[ ICD10: S51.812A] Marcela Ha MD [facility] CPT-4: 88790 06/29/2017 ([id number]) 22357 EST. PATIENT, LEVEL III Diagnosis: Cellulitis of right lower limb[ICD10: L03.115] Diagnosis: Type 2 diabetes mellitus with foot ulcer[ICD10: E11.621] Marcela Ha MD [facility] CPT-4: 47939 06/18/2017 ([id number]) 78320 EST. PATIENT, LEVEL IV Diagnosis: Cellulitis of right lower limb[ICD10: L03.115] Diagnosis: Acute laryngopharyngitis[ICD10: J06.0] Diagnosis: Gastro-esophageal reflux disease without esophagitis[ICD10: K21.9] Marcela Ha MD [facility] CPT-4: 94013 06/07/2017 ([id number]) 94545 EST. PATIENT, LEVEL III Diagnosis: Type 2 diabetes mellitus with hyperglycemia[ICD10: E11.65] Diagnosis: Insect bite (nonvenomous) of abdominal wall, initial encounter[ICD10 : S30.861A] Marcela Ha MD, [facility] CPT-4: 13762 05/17/2017 ([id number]) 66795 EST. PATIENT, LEVEL III Diagnosis: Allergic contact dermatitis due to plants, except food[ICD10: L23.7] Melida Ha MD, [facility] CPT-4: 88746 05/04/2017 ([id number]) 34261 EST. PATIENT, LEVEL III Diagnosis: Essential (primary) hypertension[ICD10: I10] Marcela Ha MD, [facility] CPT-4: 89622 03/15/2017 ([id number]) 94004 EST. PATIENT, LEVEL III Diagnosis: Cough[ICD10: R05] Diagnosis: Essential (primary) hypertension[ICD10: I10] Marcela Ha MD [facility] CPT-4: 28404 03/01/2017 ([id number]) 38209 EST. PATIENT, LEVEL III Diagnosis: Cough[ICD10: R05] Diagnosis: Nasal congestion[ICD10: R09.81] Diagnosis: Acute recurrent maxillary sinusitis[ICD10: J01.01] Marcela Ha MD [facility] CPT-4: 36197 02/16/2017 ([id number]) 23119 EST. PATIENT, LEVEL III Diagnosis: Type 2 diabetes mellitus with hyperglycemia[ICD10: E11.65] Marcela Ha MD [facility] CPT-4: 05060 02/12/2017 ([id number]) 09533 EST. PATIENT, LEVEL IV Diagnosis: Type 2 diabetes mellitus with hyperglycemia[ICD10: E11.65] Diagnosis: Muscle weakness (generalized)[ICD10: M62.81] Diagnosis: Disorientation, unspecified[ICD10: R41.0] Marcela Ha MD [facility] CPT-4: 32447 02/05/2017 ([id number]) Patient admitted to the hospital from clinic (NO CHARGE) Diagnosis: Type 2 diabetes mellitus with hyperglycemia[ICD10: E11.65] Diagnosis: Disorientation, unspecified[ICD10: R41.0] Diagnosis: Muscle weakness (generalized)[ICD10: M62.81] Marcela Ha MD [facility] CPT-4: 96297M 01/29/2017 ([id number]) Miscellaneous no charge Diagnosis: Cellulitis of right lower limb[ICD10: L03.115] Marcela Ha MD [facility] CPT-4: 34278 10/13/2016 ([id number]) Miscellaneous no charge Diagnosis: Type 2 diabetes mellitus with foot ulcer[ICD10: E11.621] Diagnosis: Pain in right foot[ICD10: M79.671] Marcela Ha MD [facility] CPT-4: 27024 10/09/2016 25155 EST. PATIENT, LEVEL II Diagnosis: Cellulitis of right lower limb[ICD10: L03.115] Marcela Ha MD, [facility] CPT-4: 88292 10/06/2016 ([id number]) 38192 EST. PATIENT, LEVEL IV Diagnosis: Low back pain[ICD10: M54.5] Diagnosis: Other deformities of toe(s) (acquired), left foot[ICD10: M20.5X2] Diagnosis: Type 2 diabetes mellitus with foot ulcer[ICD10: E11.621] Marcela Ha MD , [facility] CPT-4: 35818 07/18/2016 ([id number]) 49255 EST. PATIENT, LEVEL III Diagnosis: Type 2 diabetes mellitus with hyperglycemia[ICD10: E11.65] Marcela Ha MD, [facility] CPT-4: 25293 06/22/2016 ([id number]) 70209 EST. PATIENT, LEVEL IV Diagnosis: Type 2 diabetes mellitus with hyperglycemia[ICD10: E11.65] Diagnosis: Mixed hyperlipidemia[ICD10: E78.2] Diagnosis: Other hemoglobinopathies[ICD10: D58.2] Marcela Ha MD, [facility] CPT-4: 97994 05/23/2016 ([id number]) 61677 EST. PATIENT, LEVEL IV Diagnosis: Type 2 diabetes mellitus with other specified complication[ICD10: E11.69] Diagnosis: Dehydration[ICD10: E86.0] Marcela Ha MD, [facility] CPT-4: 65196 05/15/2016 ([id number]) OFFICE VISIT, NEW - LEVEL 3 Diagnosis: Allergic contact dermatitis due to plants, except food[ICD10: L23.7] Madeline Ha MD, [facility] CPT-4: 80047 01/20/2016 Plan of Care Planned Activity Notes Codes Status Date Referral: Jose Rafael Niko Referral Completed 11/04/2018 Visit Plan: Pneumonia, cough - recent diagnosis of Moraxella Cattharalis - with sensitivity to levaquin - will give 2 wks of levaquin since he had improvement but no full resolution of symptoms. 10/30/2018 Appointment: Melida Ha WPtel: [address] [place], [place] [phone] 30 min appointments only in this slot 10/30/2018 Patient Education: Patient Medication Summary Completed 10/30/2018 Visit Plan: Right hand-joint pain and swelling -negative for gout -treated for cellulitis right 2nd mcp joint -now having difficulty with long finger "locking" -Dr Ha in to evaluate patient and tape index and long finger in place-refer to Dr Mantilla for evaluation 10/24/2018 Appointment: Dayo Marcela WPtel: [phone] [phone] [place] (30 min) Complex 10/24/2018 Patient Education: Patient Medication Summary Completed 10/24/2018 Care Plan: Referral Order SNOMED-CT : [id number] Pending 10/24/2018 Visit Plan: Hypotension - discussed [...] less controlled. 10/23/2018 Appointment: Melida Ha WPtel: [phone] [facility] (15 min) Moderate 10/23/2018 Patient Education: Patient [...] plan. 10/21/2018 App[facility]ment[phone] (30 min) Complex 10/21/2018 Patient Education: Patient [...] warmth, discharge. 10/17/2018 Appointment: [facility]el[phone] (15 min) Moderate 10/17/2018 Patient Education: Patient [...] acutely worsen. 10/14/2018 Appointment: Marcela Oshea WPtel: [phone] (15 min) Moderate 10/14/2018 Patient Education: Patient Medication Summary Completed 10/14/2018 Care Plan: CHEST X-RAY 2VW FRONTAL&LATL LOINC : 03022-5 Pending 10/14/2018 Visit Plan: URI - Pt [...] allergy spray. 09/30/2018 Appointment: Madeline Kennedy WPtel: [facility] (15 min) Moderate 09/30/2018 Patient Education: [...] Hgb A1C 09/09/2018 Appointment: Marcela Oshea WPtel: [phone] (15 min) Moderate 09/09/2018 Patient Education: Patient Medication Summary Completed 09/09/2018 Patient Education: Patient Medication Summary Completed 09/06/2018 Patient Education: Cholesterol Management Completed 09/06/2018 Care Plan: Comp Metabolic Pending 09/06/2018 Care Plan: Cbc With Differential Pending 09/06/2018 Care Plan: %Hba1C LOINC : 53755-1 Pending 09/06/2018 Care Plan: Tsh Pending 09/06/2018 Care Plan: Lipid Pending 09/06/2018 Appointment: Dayo Marcela WPtel: [phone] [phone] (15 min) Moderate 08/26/2018 Appointment: Dayo Marcela WPtel: [phone] [phone] (15 min) Moderate 08/23/2018 Visit Plan: [...] clinic. 07/22/2018 [phone] ([facility]) Moderate 07/22/2018 Patient Education: [...] time insomnia. 07/16/2018 Appointment: Marcela Oshea WPtel: [phone] [phone] [place] (30 min) Complex 07/16/2018 Patient Education: Patient Medication Summary Completed 07/16/2018 Visit Plan: cough - improved - notify clinic if symptoms do not completely resolve, or with any questions or concerns. 07/01/2018 Appointment: Madeline Kennedy WPtel: [facility] (15 min) Moderate 07/01/2018 Patient Education: [...] spray. 06/28/2018 Appointment: Madeline Kennedy WPtel: [phone] [facility] [place] (15 min) Moderate 06/28/2018 Patient Education: Patient Medication Summary Completed 06/28/2018 Patient Education: Patient Medication Summary Completed 06/21/2018 Care Plan: Annabel RICKS [place] Pending 06/21/2018 Visit Plan: Diabetes Mellitus - [...] home. 06/18/2018 Appointment: [phone] (15 min) Moderate 06/18/2018 Patient Education: [...] swelling improves. 06/04/2018 Appointment: [phone] (15 min) Moderate 06/04/2018 Patient Education: [...] allow for greater blood glucose control. Joint hiax-btinwvhp-syqcata- symptoms have improved -stop meloxicam due to upset stomach-call if symptoms return 05/13/2018 Appointment: Marcela Oshea WPtel: [phone] [phone] (30 min) Complex 05/13/2018 Patient Education: Patient Medication Summary Completed 05/13/2018 Visit Plan: Bilateral hip ruqg-azkflsmk-fwbhopp IM injection administered today for c/o continued myalgia/arthralgia. Patient to start taking Meloxicam 15mg PO daily. Advised to return to clinic if symptoms do not improve. 05/02/2018 Appointment: Marcela Oshea WPtel: [phone] (30 min) Complex 05/02/2018 Patient Education: [...] readings at home. Diabetes Mellitus -check labs Wseovqta-giemoks-mjwn bite-rx for doxycycline-follow up in 2 weeks 04/29/2018 Appointment: Marcela Oshea WPtel: [phone] [place] (15 min) Moderate 04/29/2018 Patient Education: Patient Medication Summary Completed 04/29/2018 Appointment: [phone] [place] (15 min) Moderate 04/15/2018 Appointment: Marcela Oshea WPtel: [phone] [place] (30 min) Complex 03/21/2018 Visit [...] cymbalta 03/13/2018 Appointment: [phone] (30 min) Complex 03/13/2018 Patient Education: Patient Medication Summary Completed 03/13/2018 Visit Plan: DM-continue same medications-monitor blood sugars routinely as directed -rx for new glucometer and test strips provided Bipolar-currently depressed-patient start on vraylar-follow up in 2 weeks, sooner if needed. Patient and verbalied understanding of plan. Hypotension- stay off losartan 03/07/2018 Appointment: Marcel[facility] Oshea [facility]Ptel[phone] (30 min) Complex 03/07/2018 Patient Education: Patient Medication Summary Completed 03/07/2018 Appointment: [facility]Ptel[phone] (15 min) Moderate 03/04/2018 Visit Plan: [...] patient. 02/28/2018 Appointment: Marcel[facility] Oshea [facility]Ptel[phone] (30 min) Complex 02/28/2018 Patient Education: [...] improving. 02/13/2018 Appointment: Madeline Kennedy [facility]Ptel[phone] (15 min) Moderate 02/13/2018 Patient Education: Patient Medication Summary Completed 02/13/2018 Referral: Sun Glynn Patient informed. Referral info faxed. Completed Visit Plan: DM-weight loss-not checking blood sugars- patient sent for labs today HTN-low zbqjy-phpxrfl-cqxuy labs Callus of foot and fissue of heel-refer to Dr Glynn for evaluation Esophageal Reflux - the patient has been counseled against excessive intake of caffeine, spicy foods, peppermint , and cinnamon - all of which can exacerbate esophageal reflux. The patient is to take medications as prescribed and call the office if the symptoms are not improving. 01/29/2018 Appointment: Marcela Oshea WPtel: [facility] [phone] [place] (30 min) Complex 01/29/2018 Patient Education: Patient Medication Summary Completed 01/29/2018 Care Plan: Comp Metabolic Cancelled 01/29/2018 Care Plan: Cbc With Differential Cancelled 01/29/2018 Care Plan: %Hba1C LOINC : 28630-5 Cancelled 01/29/2018 Care Plan: Referral Order SNOMED-CT : [id number] Cancelled 01/29/2018 Visit Plan: Fatigue, malaise, joint [...] or concerns. 08/27/2017 Appointment: Madeline Kennedy WPtel: [facility]5 [facility] (15 min) Moderate 08/27/2017 Patient Education: [...] - 08/16/2017 [phone] ([facility]) Complex 08/16/2017 Patient Education: Patient Medication Summary Completed 08/16/2017 Patient Education: Obesity Completed 08/16/2017 Appointment: Madeline Kennedy WPtel: [facility]6 [facility] (30 min) Complex 08/07/2017 Visit Plan: [...] considered contagious. 07/26/2017 Appointment: Madeline Kennedy WPtel: [facility] (15 min) Moderate 07/26/2017 Patient Education: Patient Medication Summary Completed 07/26/2017 Visit Plan: Cellulitis right foot-cultured today in the office-home health to reapply wound vac--appt with wound care on to evaluate for debridement- 07/03/2017 Appointment: Marcela Oshea WPtel: [phone] (30 min) Complex 07/03/2017 Patient Education: Patient Medication Summary Completed 07/03/2017 Visit Plan: Abrasion left arm - Pt was instructed to keep the wound clean, wash with antibacterial soap, use triple antibiotic ointment, call if redness, pustular drainage, or any other acute concerns. 06/29/2017 Appointment: Marcela Oshea WPtel: [facility]5 [phone] (15 min) Moderate 06/29/2017 Patient Education: [...] of plan. 06/18/2017 Appointment: Marcela Oshea WPtel: [phone] (15 min) Moderate 06/18/2017 Patient Education: [...] diet-start prilosec 06/07/2017 Appointment: Marcela Oshea WPtel: [phone] (10 min) Simple 06/07/2017 Patient Education: [...] bite-continue doxycycline 05/17/2017 Appointment: Marcela Oshea WPtel: [phone] (30 min) Complex 05/17/2017 Patient Education: Patient [...] [facility]. 05/04/2017 Appointment: Marcela Oshea WPtel: [phone] (30 min) Complex 05/04/2017 Patient Education: [...] home. Cough-resolved 03/15/2017 Appointment: Marcela Oshea WPtel: [phone] (15 min) Moderate 03/15/2017 Patient Education: Patient Medication Summary Completed 03/15/2017 Appointment: Marcela Oshea WPtel: [phone] (30 min) Complex 03/12/2017 Visit Plan: [...] as discussed 02/16/2017 Appointment: Marcela Oshea WPtel: [phone] (15 min) Moderate 02/16/2017 Patient Education: [...] controlled. 02/12/2017 Appointment: Marcela Oshea WPtel: [phone] [phone] (30 min) Complex 02/12/2017 Patient Education: Patient Medication Summary Completed 02/12/2017 Appointment: Marcela Oshea WPtel: [phone] [phone] [place] (30 min) Complex 02/06/2017 Visit [...] consider 02/05/2017 Appointment: Marcela Oshea WPtel: [address] [phone] [place] (30 min) Complex 02/05/2017 Patient Education: Patient Medication Summary Completed 02/05/2017 Appointment: Marcela Oshea WPtel: [phone] [phone] [place] (30 min) Complex 01/30/2017 Visit Plan: Acute confusion-uncontrolled diabetes- chronically noncompliant with treatment and stopped his insulin several months ago-r/o stroke vs DKA-Dr Ha in to evaluate patient-plan to admit for further work up and treatment-patient's called and she transported him to the hospital 01/29/2017 Appointment: Marcela Oshea WPtel: [phone] [phone] [place] (30 min) Complex 01/29/2017 Patient Education: Patient Medication Summary Completed 01/29/2017 Patient Education: Obesity Completed 01/29/2017 Visit Plan: Right foot pain-MRI shows foreign body-appt with Dr Grewal for evaluation on Sunday. 10/13/2016 Appointment: Marcela Oshea WPtel: [address] [place], [place] [phone] [place] (15 min) Moderate 10/13/2016 Patient Education: Patient Medication Summary Completed 10/13/2016 Appointment: Marcela Oshea WPtel: [phone] [place] (30 min) Complex 10/12/2016 Visit Plan: Right foot itig-pxhkdkqd-ebhtg washer dropped on foot-xray negative but pain continues to increase-recommend MRI of foot for further evaluation-refer to wound care for lesions on right foot, patient has diabetes and history of osteomyelitis-culture obtained today-continue oral abx- follow up in the office on , sooner if needed 10/09/2016 Visit Plan: Right foot bhtm-catcvcmr-foasj washer dropped on foot-xray negative but pain continues to increase-recommend MRI of foot for further evaluation-refer to wound care for lesions on right foot, patient has diabetes and history of osteomyelitis-culture obtained today-continue oral abx- follow up in the office on , sooner if needed 10/09/2016 Visit Plan: Right foot ozar-itjefznb-mpoun washer dropped on foot-xray negative but pain continues to increase-recommend MRI of foot for further evaluation-refer to wound care for lesions on right foot, patient has diabetes and history of osteomyelitis-culture obtained today-continue oral abx- follow up in the office on , sooner if needed 10/09/2016 Appointment: Marcela Oshea WPtel: [phone] [place] (30 min) Complex 10/09/2016 Patient Education: Patient Medication Summary Completed 10/09/2016 Visit Plan: Cellulitis - continue with oral antibiotics as previously directed, return to clinic as previously directed, call for acute change in symptoms, worsening redness, warmth, discharge. 10/06/2016 Appointment: Marcela Oshea WPtel: [address] [place], [place] [phone] [place] (10 min) Simple 10/06/2016 Patient Education: Patient Medication Summary Completed 10/06/2016 Appointment: Marcela Oshea WPtel: [facility]5 [phone] (30 min) Complex 08/24/2016 Referral: Sun Glynn Referral Completed 07/21/2016 Visit Plan: Low back pain- history of spinal fusion- patient for xray lumbar spine-RX sent to [facility] pharmacy and instructed on use-topical voltaren samples provided and instructed on use. Ok to use tylenol as needed as well. The patient is to call the office if the pain is worsening or does not improve. Pressure ulcer left 4th toe-refer to Dr Glynn for evaluation 07/18/2016 Appointment: Marcela Oshea WPtel: [address] [place], [place] [phone] (30 min) Complex 07/18/2016 Patient Education: Patient Medication Summary Completed 07/18/2016 Patient Education: Obesity Completed 07/18/2016 Care Plan: Referral Order SNOMED-CT : [id number] Cancelled 07/18/2016 Visit Plan: Diabetes Mellitus - [...] glucose control. 06/22/2016 Appointment: Marcela Oshea WPtel: [address] [place] [phone] [place] (30 min) Complex 06/22/2016 Patient Education: [...] CBC today 05/23/2016 Appointment: Marcela Oshea WPtel: [phone] (30 min) Complex 05/23/2016 Patient Education: Patient [...] plan. 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 Low back pain- history of spinal fusion-patient for xray lumbar spine-RX sent to [facility] pharmacy and instructed on use-topical voltaren [...] for fracture from injury . Right foot pbnm-nvmavsgd-ptvag washer dropped on foot-xray negative but pain [...] for fracture from injury . Right foot fhor-ilrfeuyx-vazpw washer dropped on foot-xray negative but pain [...] for fracture from injury . Right foot twvu-hnsesufc-lfroi washer dropped on foot-xray negative but pain continues to increase-recommend MRI of foot for further evaluation-refer to wound care for lesions on right foot, patient has diabetes and history of osteomyelitis-culture obtained today-continue oral abx-follow up in the office on , sooner if needed . Bilateral hip aqqd-cnwxsrex-fxlyngp IM injection administered today for c/o continued myalgia/arthralgia. Patient to start taking Meloxicam 15mg PO daily. Advised to return to clinic if symptoms do not improve. . DM-weight loss-not checking blood sugars-patient sent for labs today HTN-low hhdcq-frpcpyk-kefhm labs Callus of foot and fissue of [...] readings are starting to become less controlled. Olgyftzfv-rigiklyq-kmncgmxt to monitor Generalized weakness-refer for PT-patient refuses [...] allow for greater blood glucose control. Joint cuuq-xpylfnqi-dyhudil-symptoms have improved -stop meloxicam due to upset [...] readings at home. Diabetes Mellitus -check labs Cxosoikh-pvbuard-lnrq bite-rx for doxycycline-follow up in 2 weeks [...]
--- OUTSIDE RECORDS SUMMARY | 2019-01-01 14:50 | XMS REPORT | CCD ---
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 Name Role Phone PP Unavailable CCM Unavailable Summary Purpose Interface Exchange Insurance Providers Payer name Policy type / Coverage type Covered alliance party ID Effective Begin Date Effective End Date Blue Cross Blue Shield [facility] Blue Cross/Blue Shield [id number] Unknown Family history Father Diagnosis Age At Onset Hyperlipidemia Unknown Heart Attack Unknown Mother Diagnosis Age At Onset Hypertension Unknown Social History Social History Element Codes Description Effective Dates Marital status Unknown Mignon 01/20/2016 Number of children Unknown 4 01/20/2016 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 Never smoker 01/20/[address]: 908028270 Never drinks alcohol 01/20/2016 Allergies, Adverse Reactions, [...] Start Date Stop Date Status Fill Instructions azithromycin 500 mg tablet RxNorm: 231701 500mg on day 1 then 250 mg daily x 4 more day Tablet(s) PO 11/07/20182018 Active 500mg on day 1 and then 250mg daily 2-4 cefdinir 300 mg capsule RxNorm: 724732 1 Capsule(s) PO BID 01/201911/13/2018 Active azithromycin 500 mg tablet RxNorm: 998086 500mg on day 1 then 250 mg daily x 4 more day Tablet(s) PO 11/07/20182018 Inactive 500mg on day 1 and then 250mg daily 2-4 cefdinir 300 mg capsule RxNorm: 781775 1 Capsule(s) PO BID 01/201911/06/2018 Inactive Levaquin 500 mg tablet RxNorm: 292638 1 Tablet(s) PO daily TAKE ONE TABLET BY MOUTH DAILY UNTIL GONE 10/31/20182018 Active Levaquin 500 mg tablet RxNorm: 039958 1 Tablet(s) PO daily 11/12/2018 Active valsartan 80 mg tablet RxNorm: 881152 1/2 Tablet(s) PO daily 04/20/2019 Active doxycycline hyclate 100 mg tablet RxNorm: 9083300 1 Tablet(s) PO BID 10/21/2018 10/27/2018 Inactive ketorolac 60 mg/2 mL intramuscular solution RxNorm: 6625589 Milliliter(s) IM 10/21/2018 10/21/2018 Inactive Levaquin 500 mg tablet RxNorm: 756555 1 Tablet(s) PO daily 10/31/2018 Inactive albuterol sulfate 2.5 mg/3 mL (0.083 %) solution for nebulization RxNorm: 514392 3 Milliliter(s) INH UD 10/14/2018 No Stop Date Active Tessalon Perles 100 mg capsule RxNorm: 188320 1-2 Capsule(s) PO TID PRN 10/14/2018 No Stop Date Active Levaquin 500 mg tablet RxNorm: 232988 1 Tablet(s) PO daily 08/201810/16/2018 Inactive Coreg 6.25 mg tablet RxNorm: 177813 TAKE ONE TABLET BY MOUTH TWICE A DAY 09/30/2018 03/28/2019 Active albuterol sulfate 2.5 mg/3 mL (0.083 %) solution for nebulization RxNorm: 710907 3 Milliliter(s) INH UD 09/30/201807/2018 Inactive Kenalog 40 mg/mL suspension for injection RxNorm: 6280189 1.5 Milliliter(s) Inj 09/30/2018 09/30/2018 Inactive Keflex 500 mg capsule RxNorm: 329802 1 Capsule(s) PO TID 201710/03/2018 Inactive prednisone 20 mg tablet RxNorm: 828244 2 Tablet(s) PO daily 09/29/2018 Inactive Kenalog 40 mg/mL suspension for injection RxNorm: 3968239 Milliliter(s) Inj 09/11/2018 09/11/2018 Inactive Zyrtec 10 mg tablet RxNorm: 6273417 1 Tablet(s) PO daily 09/0910/08/2018 Inactive Keflex 500 mg capsule RxNorm: 236364 1 Capsule(s) PO TID 201709/15/2018 Inactive Tresiba FlexTouch U-200 insulin 200 unit/mL (3 mL) subcutaneous pen RxNorm: 0709598 50 Unit(s) SQ daily 08/30/2018 08/29/2018 Inactive please give him 30 day supply Tresiba FlexTouch U-200 insulin 200 unit/mL (3 mL) subcutaneous pen RxNorm: 4411473 50 Unit(s) SQ daily 08/30/2018 09/28/2018 Inactive please give him 30 day supply Novolog Flexpen U-100 Insulin aspart 100 unit/mL subcutaneous RxNorm: 7271306 8 Unit(s) SQ AC 08/13/2018 No Stop Date Active Novolog Flexpen U-100 Insulin aspart 100 unit/mL subcutaneous RxNorm: 7134061 8 Unit(s) SQ AC 07/22/20182017 Inactive this is an update on his medication Novolog Flexpen U-100 Insulin aspart 100 unit/mL subcutaneous RxNorm: 0253079 12 Unit(s) SQ AC 07/05/20182017 Inactive this is an update on his medication Toujeo SoloStar U-300 Insulin 300 unit/mL (1.5 mL) subcutaneous pen RxNorm: 3782718 INJECT 50 UNITS UNDER THE SKIN DAILY 07/01/2018 08/29/2018 Inactive Mucinex 600 mg tablet, extended release RxNorm: 106746 1 Tablet(s) PO BID 06/28/2018 07/04/2018 Inactive Zofran 4 mg tablet RxNorm: 014814 1 Tablet(s) PO TID as needed nausea 06/28/2018 07/02/2018 Inactive Kenalog 40 mg/mL suspension for injection RxNorm: 3874258 Milliliter(s) Inj 06/28/2018 06/28/2018 Inactive Flonase Allergy Relief 50 mcg/actuation nasal spray, suspension RxNorm: 1776920 1 Centrahoma NASAL BID 06/28/20182017 Inactive Lyrica 50 mg capsule RxNorm: 657438 Capsule(s) PO daily 201707/07/2018 Inactive Novolog Flexpen U-100 Insulin aspart 100 unit/mL subcutaneous RxNorm: 8528227 10 Unit(s) SQ AC 06/18/20182017 Inactive this is an update on his medication Lasix 20 mg tablet RxNorm: 617707 1 Tablet(s) PO BIW 201707/02/2018 Inactive atorvastatin 80 mg tablet RxNorm: 385990 1 Tablet(s) PO QHS 04/201812/06/2018 Active clonazepam 1 mg tablet RxNorm: 075487 2 Tablet(s) PO HS 201706/04/2019 Active clonazepam 1 mg tablet RxNorm: 196124 2 Tablet(s) PO HS as needed 06/10/2018 06/09/2018 Inactive Lyrica 50 mg capsule RxNorm: 015462 Capsule(s) PO daily 201707/08/2018 Inactive Lasix 20 mg tablet RxNorm: 1 Tablet(s) PO TIW 201706/11/2018 Inactive Toujeo SoloStar U-300 Insulin 300 unit/mL (1.5 mL) subcutaneous pen RxNorm: 4580549 50 Unit(s) SQ daily 05/07/2018 06/30/2018 Inactive meloxicam 15 mg tablet RxNorm: 282501 15 Milligram(s) PO daily 05/02/2018 05/12/2018 Inactive ketorolac 30 mg/mL injection solution RxNorm: 721787 2 Milliliter(s) Inj 05/02/2018 05/02/2018 Inactive Toujeo SoloStar U-300 Insulin 300 unit/mL (1.5 mL) subcutaneous pen RxNorm: 8268284 45 Unit(s) daily 04/29/2018 Inactive clonazepam 1 mg tablet RxNorm: 071157 1 Tablet(s) PO Q8 as needed 04/29/2018 06/09/2018 Inactive doxycycline hyclate 100 mg tablet RxNorm: 0578965 1 Tablet(s) PO BID 04/29/2018 05/12/2018 Inactive Cymbalta 30 mg capsule,delayed release RxNorm: 158569 1 Capsule(s) PO QAM 03/13/2018 10/08/2018 Inactive Lexapro 10 mg tablet RxNorm: 811367 1 Tablet(s) PO QPM 201703/03/2018 Inactive Toujeo SoloStar U-300 Insulin 300 unit/mL (1.5 mL) subcutaneous pen RxNorm: 3070880 20 Unit(s) daily 02/28/2018 Inactive Protonix 40 mg tablet,delayed release RxNorm: 415845 1 Tablet(s) PO daily 01/29/2018 06/09/2018 Inactive clonazepam 1 mg tablet RxNorm: 846255 1 Tablet(s) PO Q8 as needed 12/12/2017 03/10/2018 Inactive Tamiflu 75 mg capsule RxNorm: 511456 1 Capsule(s) PO BID 201712/03/2017 Inactive doxycycline hyclate 100 mg capsule RxNorm: 5865898 1 Capsule(s) PO BID 09/07/2017 09/20/2017 Inactive doxycycline hyclate 100 mg capsule RxNorm: 6195805 1 Capsule(s) PO BID 08/27/2017 09/06/2017 Inactive prednisone 20 mg tablet RxNorm: 658439 2 Tablet(s) PO daily 08/31/2017 Inactive clopidogrel 75 mg tablet RxNorm: 092105 1 Tablet(s) PO daily 06/09/2018 Inactive atorvastatin 40 mg tablet RxNorm: 790397 1 Tablet(s) PO QHS 02/27/2018 Inactive losartan 25 mg tablet RxNorm: 377987 TAKE ONE TABLET BY MOUTH DAILY 08/22/2017 06/09/2018 Inactive Toujeo SoloStar 300 unit/mL (1.5 mL) subcutaneous insulin pen RxNorm: 3662062 45 Unit(s) daily 08/17/2017 08/20/2017 Inactive mupirocin 2 % topical ointment RxNorm: 427444 1 Application TOP TID to the lesions on chest 08/16/2017 08/25/2017 Inactive Toujeo SoloStar 300 unit/mL (1.5 mL) subcutaneous insulin pen RxNorm: 1634799 40 Unit(s) daily 08/16/2017 08/16/2017 Inactive valacyclovir 1 gram tablet RxNorm: 260403 1 Tablet(s) PO TID 08/01/2017 Inactive clonazepam 1 mg tablet RxNorm: 842910 1 Tablet(s) PO Q8 as needed 07/03/2017 09/30/2017 Inactive Levaquin 500 mg tablet RxNorm: 414410 1 Tablet(s) PO daily 06/25/2017 Inactive Levaquin 500 mg tablet RxNorm: 486140 1 Tablet(s) PO daily 06/21/2017 Inactive losartan 25 mg tablet RxNorm: 764486 1 Tablet(s) PO daily 201608/16/2017 Inactive nystatin 100,000 unit/mL oral suspension RxNorm: 074744 5 Milliliter(s) PO QID Swish et swallow 06/18/2017 06/17/2017 Inactive nystatin 100,000 unit/mL oral suspension RxNorm: 166396 5 Milliliter(s) PO QID Swish et swallow 06/18/2017 06/27/2017 Inactive Cipro 500 mg tablet RxNorm: 432785 1 Tablet(s) PO BID 201606/18/2017 Inactive Cipro 500 mg tablet RxNorm: 690729 1 Tablet(s) PO BID 201606/11/2017 Inactive Toujeo SoloStar 300 unit/mL (1.5 mL) subcutaneous insulin pen RxNorm: 7690700 INJECT 10 UNITS UNDER THE SKIN DAILY 06/12/2017 08/15/2017 Inactive Keflex 500 mg capsule RxNorm: 541638 1 Capsule(s) PO TID 201606/13/2017 Inactive doxycycline hyclate 100 mg capsule RxNorm: 5927851 1 Capsule(s) PO BID 05/17/2017 05/21/2017 Inactive doxycycline hyclate 100 mg capsule RxNorm: 9753311 1 Capsule(s) PO BID 05/11/2017 05/16/2017 Inactive losartan 25 mg tablet RxNorm: 269118 1 Tablet(s) PO daily 201606/17/2017 Inactive atorvastatin 40 mg tablet RxNorm: 145727 1 Tablet(s) PO daily 03/01/2017 08/23/2017 Inactive clopidogrel 75 mg tablet RxNorm: 860864 1 Tablet(s) PO daily 08/23/2017 Inactive Flonase Allergy Relief 50 mcg/actuation nasal spray, suspension RxNorm: 2706638 2 Centrahoma NASAL daily 02/16/20172016 Inactive Augmentin 875 mg-125 mg tablet RxNorm: 123044 1 Tablet(s) PO BID 02/16/2017 02/22/2017 Inactive GET PROBIOTIC TO TAKE WHILE ON ABX Tamiflu 75 mg capsule RxNorm: 211881 1 Capsule(s) PO BID 201602/20/2017 Inactive ceftriaxone 500 mg solution for injection RxNorm: 2683327 1 Milliliter(s) Inj 02/16/2017 02/16/2017 Inactive Kenalog 40 mg/mL suspension for injection RxNorm: 6398216 1 Milliliter(s) Inj 02/16/2017 02/16/2017 Inactive Toujeo SoloStar 300 unit/mL (1.5 mL) subcutaneous insulin pen RxNorm: 7158763 25 Unit(s) SQ QAM 02/12/2017 06/10/2017 Inactive Toujeo SoloStar 300 unit/mL (1.5 mL) subcutaneous insulin pen RxNorm: 8688716 10 Unit(s) SQ QAM 02/05/2017 02/11/2017 Inactive lisinopril 10 mg tablet RxNorm: 835440 1 Tablet(s) PO daily 02/28/2017 Inactive atorvastatin 40 mg tablet RxNorm: 321025 1 Tablet(s) PO daily 02/01/2017 02/28/2017 Inactive doxycycline hyclate 100 mg capsule RxNorm: 9514150 1 Capsule(s) PO BID 02/01/2017 02/10/2017 Inactive clonazepam 1 mg tablet RxNorm: 878935 1 Tablet(s) PO Q8 as needed 10/09/2016 01/05/2017 Inactive ceftriaxone 1 gram solution for injection RxNorm: 0525130 Inj 10/06/2016 10/06/2016 Inactive cyclobenzaprine 10 mg tablet RxNorm: 333026 1/2-1 Tablet(s) PO TID PRN 07/18/2016 01/28/2017 Inactive clonazepam 1 mg tablet RxNorm: 040662 1 Tablet(s) PO Q8 as needed 05/31/2016 05/29/2016 Inactive clonazepam 1 mg tablet RxNorm: 411510 1 Tablet(s) PO Q8 as needed 05/31/2016 08/28/2016 Inactive Toujeo SoloStar 300 unit/mL (1.5 mL) subcutaneous insulin pen RxNorm: 7398965 10 Unit(s) SQ daily 05/23/2016 01/28/2017 Inactive Crestor 10 mg tablet RxNorm: 973491 1 Tablet(s) PO QHS 201501/28/2017 Inactive Crestor 10 mg tablet RxNorm: 395504 1 Tablet(s) PO QHS 201505/18/2016 Inactive clonazepam 1 mg tablet RxNorm: 153417 1 Tablet(s) PO Q8 as needed 04/25/2016 05/30/2016 Inactive prednisone 20 mg tablet RxNorm: 648649 3 Tablet(s) PO daily 06/201602/10/2016 Inactive prednisone 20 mg tablet RxNorm: 647847 3 Tablet(s) PO daily 06/201605/14/2016 Inactive Kenalog 40 mg/mL suspension for injection RxNorm: 2312821 Milliliter(s) Inj 01/20/2016 01/20/2016 Inactive aspirin 81 mg tablet,delayed release RxNorm: 608228 1 Tablet(s) PO daily No Start Date Active Brilinta 90 mg tablet RxNorm: 7809513 1 Tablet(s) PO BID No Start Date Active acetaminophen 500 mg tablet RxNorm: 644745 1-2 Tablet(s) PO as needed No Start Date Active clopidogrel 75 mg tablet RxNorm: 658121 1 Tablet(s) PO daily No Start Date 02/28/2017 Inactive Novolog Flexpen U-100 Insulin aspart 100 unit/mL subcutaneous RxNorm: 4714633 5 units with breakfast lunch and 10 supper Unit(s) SQ No Start Date 06/17/2018 Inactive clonazepam 1 mg tablet RxNorm: 637119 1 Tablet(s) PO QHS No Start Date 04/24/2016 Inactive Coreg 6.25 mg tablet RxNorm: 587328 1 Tablet(s) PO BID No Start Date 09/29/2018 Inactive acyclovir 400 mg tablet RxNorm: 820416 2 Tablet(s) PO 5x daily No Start Date 02/28/2017 Inactive Lyrica 50 mg capsule RxNorm: 052259 Capsule(s) PO BID No Start Date 06/09/2018 Inactive Vraylar 3 mg capsule RxNorm: 6355166 1 Capsule(s) PO daily No Start Date 03/12/2018 Inactive valsartan 80 mg tablet RxNorm: 603490 1 Tablet(s) PO daily No Start Date 10/22/2018 Inactive Medication Administered Medication Codes Instructions Start Date Status ketorolac 60 mg/2 mL intramuscular solution RxNorm: 2022835 Milliliter 10/21/2018 No longer Active Kenalog 40 mg/mL suspension for injection RxNorm: 6217765 1.5Milliliter 09/30/2018 No longer Active Kenalog 40 mg/mL suspension for injection RxNorm: 0610501 Milliliter 09/11/2018 No longer Active Kenalog 40 mg/mL suspension for injection RxNorm: 6800274 Milliliter 06/28/2018 No longer Active ketorolac 30 mg/mL injection solution RxNorm: 284895 2Milliliter 05/02/2018 No longer Active ceftriaxone 500 mg solution for injection RxNorm: 9284260 1Milliliter 02/16/2017 No longer Active Kenalog 40 mg/mL suspension for injection RxNorm: 4782700 1Milliliter 02/16/2017 No longer Active ceftriaxone 1 gram solution for injection RxNorm: 1513345 10/06/2016 No longer Active Kenalog 40 mg/mL suspension for injection RxNorm: 9033643 Milliliter 01/20/2016 No longer Active Immunizations Vaccine [...] Item Item Code Result Date Culture Sputum 322196 LOWER RESPIRATORY TRACT CULTURE SEE NOTES 10/16/2018 LIPID GRP 3088784 CHOLESTEROL TNP:Duplicate Order 09/10/2018 LIPID GRP Triglyceride TNP:Duplicate Order 2017 LIPID GRP HDL CHOLESTEROL TNP:Duplicate Order 2017 LIPID GRP Chol/HDL Ratio TNP:Duplicate Order 2017 LIPID GRP LDL Cholesterol TNP:Duplicate Order 2017 A1C HPLC 9872833 Hgb A1c 46671-0 TNP:Duplicate Order 2017 C Diff An [id number] GDH TNP:Lab Request 06/22/2018 C Diff An [id number] Toxin A/B TNP:Lab Request 06/22/2018 C Diff An [id number] C Diff Analyzer TNP:Lab Request 2017 C Diff An [id number] IC OK? TNP:Lab Request 06/22/2018 CBC 1254263 WBC 6.4 10e9/L 05/02/2018 CBC 5132167 RBC 5.60 10e12/L 05/02/2018 CBC 5044424 HEMOGLOBIN 17.0 g/dL 05/02/2018 CBC 3204466 HEMATOCRIT 48.0 % 05/02/2018 CBC 5885867 MCV 85.7 fL 05/02/2018 CBC 0708853 MCH 30.4 pg 05/02/2018 CBC 8656975 MCHC 35.4 g/dL 05/02/2018 CBC 8139752 PLATELET COUNT 166 10e9/L 05/02/2018 CBC 5115516 Mean Plt Volume 11.6 fL 05/02/2018 CBC 0146483 Neut Auto 48.6 % 05/02/2018 CBC 3063050 Lymph Auto 41.7 % 05/02/2018 CBC 6028765 [place] Auto 8.1 % 05/02/2018 CBC 8908949 RDW 13.1 % 05/02/2018 CBC 2453457 Eos Auto 1.1 % 05/02/2018 CBC 7192314 Baso Auto 0.5 % 05/02/2018 CBC 1609489 Neutrophil Abs 3.11 10e9/L 05/02/2018 CBC 1144473 Lymphocyte Abs 2.67 10e9/L 05/02/2018 CBC 3367170 Monocyte Abs 0.52 10e9/L 05/02/2018 CBC 0830956 Eosinophil Abs 0.07 10e9/L 05/02/2018 CBC 7927103 RDW-SD 40.0 fL 05/02/2018 CBC 4686778 Basophil Abs 0.03 10e9/L 05/02/2018 CHEM 14 0118262 AST 17 U/L 05/02/2018 CHEM 14 2115922 ALT 17 U/L 05/02/2018 CHEM 14 8254918 BUN 17 mg/dL 05/02/2018 CHEM 14 9961654 ALBUMIN 4.0 g/dL 05/02/2018 CHEM 14 9391455 CHLORIDE 97 mmol/L 05/02/2018 CHEM 14 4174882 Bili Total 0.9 mg/dL 05/02/2018 CHEM 14 0107100 ALK PHOS 67 U/L 05/02/2018 CHEM 14 5918520 SODIUM 135 mmol/L 05/02/2018 CHEM 14 1740112 CREATININE 1.18 mg/dL 05/02/2018 CHEM 14 7068175 CALCIUM 9.4 mg/dL 05/02/2018 CHEM 14 5666248 POTASSIUM 4.4 mmol/L 05/02/2018 CHEM 14 7150731 TOTAL PROTEIN 6.9 g/dL 05/02/2018 CHEM 14 0323657 GLUCOSE 316 mg/dL 05/02/2018 CHEM 14 6793348 Bicarbonate 29 mmol/L 05/02/2018 CHEM 14 5517073 AGAP 9 mmol/L 05/02/2018 MEAN GLUC 4913504 Calc Mean Gluc 283 mg/dL 05/02/2018 A1C HPLC 1518186 Hgb A1c 15963-0 11.5 % 05/02/2018 GFR CALC 8010283 GFR Non Afr Amr >60 mL/min 05/02/2018 GFR CALC 0443166 GFR Afr Amr >60 mL/min 05/02/2018 JIC Gold 4640048 JIC Gold Complete 02/28/2018 GFR CALC 4648050 GFR Non Afr Amr >60 mL/min 02/28/2018 GFR CALC 4201866 GFR Afr Amr >60 mL/min 02/28/2018 UA W/CII 4818953 UA Urine Appear Normal 02/28/2018 UA W/CII 7039182 UA Protein 1+ 02/28/2018 UA W/CII 2382018 UA Hemoglobin Negative 02/28/2018 UA W/CII 7259779 UA Glucose 4+ 02/28/2018 UA W/CII 1465823 UA Ketones Trace 02/28/2018 UA W/CII 9041399 UA pH 5.5 02/28/2018 UA W/CII 4151096 U Spec Bishop 1.015 02/28/2018 UA W/CII 5423284 UA Bilirubin Negative 02/28/2018 UA W/CII 4618351 UA Nitrite NEG 02/28/2018 UA W/CII 9181102 UA Leuk Esteras Negative 02/28/2018 MICR 3685668 UA WBC/hpf 1 02/28/2018 MICR 4590865 UA RBC hpf 2 02/28/2018 MICR 7241552 UA WBC auto 3.8 /uL 02/28/2018 MICR 9366937 UA RBC auto 12.2 /uL 02/28/2018 MICR 7597035 UA SQ EPI auto 2.3 /uL 02/28/2018 MICR 0527923 UA H Cast auto 0.10 /uL 02/28/2018 CBC 3643631 WBC 6.4 10e9/L 02/28/2018 CBC 5260998 RBC 5.51 10e12/L 02/28/2018 CBC 1798254 HEMOGLOBIN 16.7 g/dL 02/28/2018 CBC 7011347 HEMATOCRIT 46.9 % 02/28/2018 CBC 3454571 MCV 85.1 fL 02/28/2018 CBC 3457996 MCH 30.3 pg 02/28/2018 CBC 1978439 MCHC 35.6 g/dL 02/28/2018 CBC 3740694 PLATELET COUNT 173 10e9/L 02/28/2018 CBC 6263451 Mean Plt Volume 11.6 fL 02/28/2018 CBC 5075555 Neut Auto 51.8 % 02/28/2018 CBC 4902255 Lymph Auto 39.9 % 02/28/2018 CBC 3822310 [place] Auto 7.3 % 02/28/2018 CBC 0286174 Eos Auto 0.8 % 02/28/2018 CBC 7552713 RDW 13.3 % 02/28/2018 CBC 1843465 Baso Auto 0.2 % 02/28/2018 CBC 6160579 Neutrophil Abs 3.32 10e9/L 02/28/2018 CBC 3264629 Lymphocyte Abs 2.55 10e9/L 02/28/2018 CBC 3564400 Monocyte Abs 0.47 10e9/L 02/28/2018 CBC 5675852 Eosinophil Abs 0.05 10e9/L 02/28/2018 CBC 0311460 Basophil Abs 0.01 10e9/L 02/28/2018 CBC 2774014 RDW-SD 40.8 fL 02/28/2018 CHEM 14 2914338 AST 17 U/L 02/28/2018 CHEM 14 1732747 ALT 17 U/L 02/28/2018 CHEM 14 4511573 BUN 20 mg/dL 02/28/2018 CHEM 14 3713130 ALBUMIN 4.1 g/dL 02/28/2018 CHEM 14 4673340 CHLORIDE 97 mmol/L 02/28/2018 CHEM 14 1877880 Bili Total 1.3 mg/dL 02/28/2018 CHEM 14 2935063 ALK PHOS 78 U/L 02/28/2018 CHEM 14 4283119 SODIUM 135 mmol/L 02/28/2018 CHEM 14 3381130 CREATININE 1.09 mg/dL 02/28/2018 CHEM 14 6370610 CALCIUM 9.6 mg/dL 02/28/2018 CHEM 14 1020616 POTASSIUM 3.8 mmol/L 02/28/2018 CHEM 14 5454951 TOTAL PROTEIN 7.3 g/dL 02/28/2018 CHEM 14 6812482 GLUCOSE 349 mg/dL 02/28/2018 CHEM 14 2839717 Bicarbonate 29 mmol/L 02/28/2018 CHEM 14 5022432 AGAP 9 mmol/L 02/28/2018 [place] Spotted Fever Igg/Igm 626853 FEI MT SPOTTED FEVER IGM EIA . 09/05/2017 [place] Spotted Fever Igg/Igm 123650 RMSF, IGM 0.17 index 09/05/2017 [place] Spotted Fever Igg/Igm 207226 FEI MT SPOTTED FEVER IGG EIA FLEX . 09/05/2017 [place] Spotted Fever Igg/Igm 451783 RMSF, IGG SCREEN-FLEX Positive 09/05/2017 Fei Mtn Spot'D Fev Igg 645947 RMSF, IGG -TITER IFA <1:64 11/2016 Ehrlichia Chaffeensis Antibody Igm 052210 EHRLICHIA CHAFFEENSIS IGM < 1:16 09/03/2017 Ehrlichia Chaffeensis Antibody Igg 051962 EHRLICHIA CHAFFEENSIS IGG <1:64 09/03/2017 Lymes Disease Total Antibodies With Western Blot Reflex B. BURGDORFERI, IGG/IGM 0.223 08/30/2017 Lymes Disease Total Antibodies With Western Blot Reflex C-Reactive Protein Qnt Crqnt CRP 0.00 mg/dl 08/27/2017 Sed Rate Ord21 ESR 8 mm/hr 08/27/2017 Comp Metabolic Yeq935 NA 135 mEq/L 08/16/2017 Comp Metabolic Ytm558 K 4.1 mEq/L 08/16/2017 Comp Metabolic Byq715 CL 98 mEq/L 08/16/2017 Comp Metabolic Ygv991 CO2 28.0 mEq/L 08/16/2017 Comp Metabolic Rst799 ANION GAP 13 08/16/2017 Comp Metabolic Drg877 GLUCOSE 299 mg/dL 08/16/2017 Comp Metabolic Wfq573 Creat 0.9 mg/dL 08/16/2017 Comp Metabolic Yal094 eGFR 90 ml/min/1.73m2 08/16/2017 Comp Metabolic Pei487 BUN 20 mg/dL 08/16/2017 Comp Metabolic Bzj814 B/C Ratio 21.5 Ratio 08/16/2017 Comp Metabolic Obg866 CALCIUM 9.2 mg/dL 08/16/2017 Comp Metabolic Acx975 ALK PHOS 84 U/L 08/16/2017 Comp Metabolic Qvl083 AST(SGOT) 19 U/L 08/16/2017 Comp Metabolic Mgt018 ALT(SGPT) 24 U/L 08/16/2017 Comp Metabolic Huo637 BILI T 1.1 mg/dL 08/16/2017 Comp Metabolic Dxp086 ALBUMIN 4.2 g/dL 08/16/2017 Comp Metabolic Zrs469 TPRO 7.2 g/dL 08/16/2017 Comp Metabolic Tbw970 GLOB 3.0 g/dL 08/16/2017 Comp Metabolic Ywk455 A/G Ratio 1.4 Ratio 08/16/2017 Comp Metabolic Ukp027 Osmo 284 mOsmo 08/16/2017 %Hba1C Isj212 % HbA1c 45464-3 12.5 % 08/16/2017 %Hba1C Qpb403 Gluc Ave 312 mg/dL 08/16/2017 Urine Culture Ucult Complete NO Growth Day 2 06/23/2017 Urine Culture Ucult Preliminary NO Growth Day 1 06/23/2017 C RAP A SC [id number] Strep A Negative 06/08/2017 %Hba1C Ove420 % HbA1c 00570-9 9.5 % 05/04/2017 %Hba1C Ofk562 Gluc Ave 226 mg/dL 05/04/2017 Tsh Ord6 [...] 31.7 pg 05/04/2017 Cbc With Differential Ord2 Dubois% 8.5 % 05/04/2017 Cbc With Differential Ord2 [...] 2.48 K/ul 05/04/2017 Cbc With Differential Ord2 [place] ABS# 0.5 K/ul 05/04/2017 Cbc With Differential Ord2 Eos ABS# 0.1 K/ul 05/04/2017 Cbc With Differential Ord2 Baso ABS# 0.0 K/ul 05/04/2017 Comp Metabolic Htn962 NA 135 mEq/L 05/04/2017 Comp Metabolic Ghb718 K 4.2 mEq/L 05/04/2017 Comp Metabolic Ibu861 CL 99 mEq/L 05/04/2017 Comp Metabolic Qoo613 CO2 26.0 mEq/L 05/04/2017 Comp Metabolic Zau992 ANION GAP 14 05/04/2017 Comp Metabolic Bdh258 GLUCOSE 277 mg/dL 05/04/2017 Comp Metabolic Npv076 Creat 0.9 mg/dL 05/04/2017 Comp Metabolic Ljk892 eGFR 96 ml/min/1.73m2 05/04/2017 Comp Metabolic Vay649 BUN 23 mg/dL 05/04/2017 Comp Metabolic Bkr138 B/C Ratio 26.1 Ratio 05/04/2017 Comp Metabolic Ucj920 CALCIUM 8.9 mg/dL 05/04/2017 Comp Metabolic Old442 ALK PHOS 81 U/L 05/04/2017 Comp Metabolic Oid218 AST(SGOT) 21 U/L 05/04/2017 Comp Metabolic Vke190 ALT(SGPT) 27 U/L 05/04/2017 Comp Metabolic Yig134 BILI T 1.2 mg/dL 05/04/2017 Comp Metabolic Tlv536 ALBUMIN 4.0 g/dL 05/04/2017 Comp Metabolic Crg011 TPRO 6.7 g/dL 05/04/2017 Comp Metabolic Ufm141 GLOB 2.7 g/dL 05/04/2017 Comp Metabolic Lrw695 A/G Ratio 1.5 Ratio 05/04/2017 Comp Metabolic Ean526 Osmo 284 mOsmo 05/04/2017 C A/B FLU 1161459 Influenza A Scr Negative 02/16/2017 C A/B FLU 0726758 Influenza B Scr Positive 02/16/2017 Cbc With [...] 39.7 % 05/23/2016 Cbc With Differential Ord2 [place]% 8.8 % 05/23/2016 Cbc With Differential Ord2 [...] 2.07 K/ul 05/23/2016 Cbc With Differential Ord2 [place] ABS# 0.5 K/ul 05/23/2016 Cbc With Differential Ord2 Eos ABS# 0.1 K/ul 05/23/2016 Cbc With Differential Ord2 Baso ABS# 0.0 K/ul 05/23/2016 Lipid Ord30 CHOL 397 mg/dL 05/17/2016 Lipid Ord30 HDL 48.0 mg/dl 05/17/2016 Lipid Ord30 TRIG 578 mg/dL 05/17/2016 Lipid Ord30 LDL Unable to calculate Due to elevated triglycerides mg/dL 05/17/2016 Lipid Ord30 C/HDL 8.3 Ratio 05/17/2016 %Hba1C Bjc414 % HbA1c 05823-2 12.4 % 05/16/2016 %Hba1C Iaq366 Gluc Ave 309 mg/dL 05/16/2016 Cbc With [...] 87.4 fl 05/15/2016 Cbc With Differential Ord2 [place]% 7.8 % 05/15/2016 Cbc With Differential Ord2 [...] 2.04 K/ul 05/15/2016 Cbc With Differential Ord2 [place] ABS# 0.5 K/ul 05/15/2016 Cbc With Differential Ord2 Eos ABS# 0.1 K/ul 05/15/2016 Cbc With Differential Ord2 Baso ABS# 0.0 K/ul 05/15/2016 Tsh Ord6 hTSH II 1.70 uIU/mL 05/15/2016 Comp Metabolic Zqz286 NA 135 mEq/L 05/15/2016 Comp Metabolic Vnh493 K 3.9 mEq/L 05/15/2016 Comp Metabolic Hgc701 CL 96 mEq/L 05/15/2016 Comp Metabolic Dwj909 CO2 27.0 mEq/L 05/15/2016 Comp Metabolic Xre456 ANION GAP 16 05/15/2016 Comp Metabolic Loj577 GLUCOSE 183 mg/dL 05/15/2016 Comp Metabolic Irz952 Creat 1.1 mg/dL 05/15/2016 Comp Metabolic Djq479 eGFR 71 ml/min/1.73m2 05/15/2016 Comp Metabolic Xoa112 BUN 17 mg/dL 05/15/2016 Comp Metabolic Add822 B/C Ratio 14.9 Ratio 05/15/2016 Comp Metabolic Rle770 CALCIUM 9.6 mg/dL 05/15/2016 Comp Metabolic Tfv306 ALK PHOS 100 U/L 05/15/2016 Comp Metabolic Kdq954 AST(SGOT) 20 U/L 05/15/2016 Comp Metabolic Mvs075 ALT(SGPT) 20 U/L 05/15/2016 Comp Metabolic Hjw289 BILI T 1.3 mg/dL 05/15/2016 Comp Metabolic Qxc983 ALBUMIN 4.6 g/dL 05/15/2016 Comp Metabolic Drc699 TPRO 8.1 g/dL 05/15/2016 Comp Metabolic Vya579 GLOB 3.5 g/dL 05/15/2016 Comp Metabolic Smb325 A/G Ratio 1.3 Ratio 05/15/2016 Comp Metabolic Ymh342 Osmo 276 mOsmo 05/15/2016 Review of Systems [...] CPT-4: J3301 09/30/2018 THER/PROPH/DIAG INJ SC/IM CPT-4: 54158 09/11/2018 TRIAMCINOLONE ACET INJ NOS CPT-4: J3301 09/11/2018 IMMUNIZATION ADMIN CPT -4: 12064 07/22/2018 FLU VAC NO PRSV 4 MENA 3 YRS+ CPT-4: 12670 07/22/2018 TRIAMCINOLONE ACET INJ NOS CPT-4: J3301 06/28/2018 KETOROLAC TROMETHAMINE INJ CPT-4: J1885 05/02/2018 FLU VAC NO PRSV 4 MENA 3 YRS+ CPT-4: [id number] 08/16/2017 IMMUNIZATION ADMIN CPT -4: 70409 08/16/2017 URINALYSIS NONAUTO W/O SCOPE CPT-4: 50003 06/21/2017 TRIAMCINOLONE ACET INJ NOS CPT-4: J3301 05/04/2017 THER/PROPH/DIAG INJ SC/IM CPT-4: 77992 05/04/2017 TRIAMCINOLONE ACET INJ NOS CPT-4: J3301 02/16/2017 ROCEPHIN, PER 250 MG CPT-4: J0696 02/16/2017 ROCEPHIN, PER 250 MG CPT-4: J0696 10/06/2016 URINALYSIS NONAUTO W/O SCOPE CPT-4: 42891 07/18/2016 TRIAMCINOLONE ACET INJ NOS CPT-4: J3301 01/20/2016 Vital Signs Date Vital 10/30/2018 Blood Pressure 1: 130/72 Code : 8480-6 BMI: 33.3 Code : 04749-0 Heart Rate 1 : 83 bpm Height: 6'2" SpO2: 95% Temperature: 36.5 (C) / 97.7 (F) Weight: 259 lbs 10/24/2018 Blood Pressure 1: 130/70 Code : 8480-6 Heart Rate 1: 95 bpm Height: 6'2" SpO2: 96% 10/23/2018 Blood Pressure 1: 100/70 Code : 8480-6 Blood Pressure 2: 102/70 Code: 8480-6 BMI: 33.3 Code: 02870-1 Heart Rate 1: 106 bpm Height: 6'2" SpO2: 98% Weight: 259 lbs 10/21/2018 Blood Pressure 1: 140/90 Code : 8480-6 BMI: 32.9 Code : 41845-6 Heart Rate 1 : 96 bpm Height: 6'2" SpO2: 92% Weight: 256 lbs 10/17/2018 Blood Pressure 1: 110/68 Code : 8480-6 BMI: 32.9 Code : 92903-6 Heart Rate 1 : 82 bpm Height: 6'2" SpO2: 97% Weight: 256 lbs 10/14/2018 Blood Pressure 1: 124/70 Code : 8480-6 BMI: 33.6 Code : 24690-3 Heart Rate 1 : 76 bpm Height: 6'2" SpO2: 99% Temperature: 36.3 (C) / 97.3 (F) Weight: 262 lbs 09/30/2018 Blood Pressure 1: 138/82 Code : 8480-6 BMI: 33.6 Code : 40463-0 Heart Rate 1 : 82 bpm Height: 6'2" SpO2: 98% Temperature: 36.3 (C) / 97.3 (F) Weight: 262 lbs 09/09/2018 Blood Pressure 1: 140/80 Code : 8480-6 BMI: 33.0 Code : 01860-2 Heart Rate 1 : 97 bpm Height: 6'2" SpO2: 93% Temperature: 36.8 (C) / 98.2 (F) Weight: 257 lbs 07/22/2018 Blood Pressure 1: 120/78 Code : 8480-6 BMI: 31.6 Code : 69952-0 Heart Rate 1 : 87 bpm Height: 6'2" SpO2: 98% Weight: 246 lbs 07/16/2018 Blood Pressure 1: 132/74 Code : 8480-6 BMI: 31.2 Code : 62920-6 Heart Rate 1 : 90 bpm Height: 6'2" SpO2: 96% Weight: 243 lbs 07/01/2018 Blood Pressure 1: 142/82 Code : 8480-6 BMI: 31.8 Code : 82103-9 Heart Rate 1 : 88 bpm Height: 6'2" SpO2: 98% Weight: 248 lbs 06/28/2018 Blood Pressure 1: 132/76 Code : 8480-6 BMI: 31.8 Code : 69553-8 Heart Rate 1 : 107 bpm Height: 6'2" SpO2: 98% Temperature: 37.9 (C) / 100.3 (F) Weight: 248 lbs 06/18/2018 Blood Pressure 1: 138/82 Code : 8480-6 BMI: 31.8 Code : 42608-3 Heart Rate 1 : 82 bpm Height: 6'2" SpO2: 97% Weight: 248 lbs 06/04/2018 Blood Pressure 1: 128/84 Code : 8480-6 BMI: 33.9 Code : 49853-0 Heart Rate 1 : 86 bpm Height: 6'2" SpO2: 95% Weight: 264 lbs 05/13/2018 Blood Pressure 1: 130/80 Code : 8480-6 BMI: 31.1 Code : 93425-3 Heart Rate 1 : 100 bpm Height: 6'2" SpO2: 94% Weight: 242 lbs 05/02/2018 Blood Pressure 1: 134/84 Code : 8480-6 BMI: 31.2 Code : 22215-8 Heart Rate 1 : 93 bpm Height: 6'2" SpO2: 98% Weight: 243 lbs 04/29/2018 Blood Pressure 1: 142/88 Code : 8480-6 BMI: 31.6 Code : 39155-7 Heart Rate 1 : 96 bpm Height: 6'2" SpO2: 96% Temperature: 36.7 (C) / 98.1 (F) Weight: 246 lbs 03/13/2018 Blood Pressure 1: 120/76 Code : 8480-6 BMI: 30.9 Code : 39723-8 Heart Rate 1 : 112 bpm Height: 6'2" SpO2: 97% Weight: 241 lbs 03/07/2018 Blood Pressure 1: 108/78 Code : 8480-6 BMI: 30.0 Code : 58340-7 Heart Rate 1 : 87 bpm Height: 6'2" SpO2: 98% Weight: 234 lbs 02/28/2018 Blood Pressure 1: 106/74 Code : 8480-6 BMI: 30.0 Code : 70941-6 Heart Rate 1 : 101 bpm Height: 6'2" SpO2: 98% Temperature: 36.4 (C) / 97.5 (F) Weight: 234 lbs 02/13/2018 Blood Pressure 1: 110/78 Code : 8480-6 BMI: 30.0 Code : 56893-9 Heart Rate 1 : 106 bpm Height: 6'2" SpO2: 98% Weight: 234 lbs 01/29/2018 Blood Pressure 1: 106/68 Code : 8480-6 BMI: 30.0 Code : 28293-7 Heart Rate 1 : 108 bpm Height: 6'2" SpO2: 98% Weight: 234 lbs 08/27/2017 Blood Pressure 1: 134/76 Code : 8480-6 Heart Rate 1: 98 bpm Height: SpO2: 97% Weight: 08/16/2017 Blood Pressure 1: 128/80 Code : 8480-6 BMI: 32.0 Code : 98946-3 Heart Rate 1 : 94 bpm Height: [...] Code : 8480-6 BMI: 31.8 Code : 00124-0 Heart Rate 1 : 102 bpm Height: [...] Code : 8480-6 BMI: 31.8 Code : 77764-5 Heart Rate 1 : 85 bpm Height: 6'2" SpO2: 96% Temperature: 36.6 (C) / 97.9 (F) Weight: 248 lbs 02/12/2017 Blood Pressure 1: 126/76 Code : 8480-6 BMI: 31.8 Code : 24220-7 Heart Rate 1 : 106 bpm Height: 6'2" SpO2: 91% Weight: 248 lbs 02/05/2017 Blood Pressure 1: 146/86 Code : 8480-6 BMI: 31.9 Code : 66587-0 Heart Rate 1 : 98 bpm Height: 6'2" SpO2: 87% Temperature: 36.7 (C) / 98.0 (F) Weight: 248 lbs 8 oz 01/29/2017 Blood Pressure 1: 132/84 Code : 8480-6 BMI: 31.8 Code : 55807-5 Heart Rate 1 : 83 bpm Height: 6'2" SpO2: 97% Weight: 248 lbs 10/13/2016 Blood Pressure 1: 128/72 Code : 8480-6 Heart Rate 1: 86 bpm SpO2: 94% 10/09/2016 Blood Pressure 1: 128/68 Code : 8480-6 Heart Rate 1: 136 bpm SpO2: 94% Temperature: 36.8 (C) / 98.2 (F) 10/06/2016 Blood Pressure 1: 140/80 Code : 8480-6 BMI: 32.1 Code : 15122-8 Heart Rate 1 : 94 bpm Height: 6'2" SpO2: 95% Weight: 250 lbs 07/18/2016 Blood Pressure 1: 128/86 Code : 8480-6 BMI: 32.1 Code : 89278-7 Heart Rate 1 : 89 bpm Height: 6'2" SpO2: 96% Weight: 250 lbs 06/22/2016 Blood Pressure 1: 118/70 Code : 8480-6 BMI: 32.1 Code : 81312-5 Heart Rate 1 : 70 bpm Height: 6'2" SpO2: 97% Weight: 250 lbs 05/23/2016 Blood Pressure 1: 128/80 Code : 8480-6 BMI: 32.1 Code : 39320-6 Heart Rate 1 : 76 bpm Height: 6'2" SpO2: 98% Weight: 250 lbs 05/15/2016 Blood Pressure 1: 110/90 Code : 8480-6 BMI: 31.3 Code : 67369-5 Heart Rate 1 : 111 bpm Height: 6'2" SpO2: 97% Temperature: 36.6 (C) / 97.8 (F) Weight: 244 lbs 01/20/2016 Blood Pressure 1: 128/76 Code : 8480-6 BMI: 33.0 Code : 76780-7 Heart Rate 1 : 103 bpm Height: [...] data Encounters Encounter Performer Location Codes Date [id number] EST. PATIENT, LEVEL III Diagnosis: Pneumonia due to other Gram-negative bacteria[ICD10: J15.6] Diagnosis: Cough[ICD10: R05] Melida Ha MD, [facility] CPT-4: 49106 10/30/2018 ([id number]) 58797 EST. PATIENT, LEVEL II Diagnosis: Pain in joints of right hand[ICD10: M25.541] Diagnosis: Trigger finger, right middle finger[ICD10: M65.331] Marcela Ha MD, [facility] CPT-4: 22191 10/24/2018 ([id number]) 37943 EST. PATIENT, LEVEL IV Diagnosis: Essential (primary) hypertension[ICD10: I10] Diagnosis: Type 2 diabetes mellitus with foot ulcer[ICD10: E11.621] Melida Ha MD, [facility] CPT-4: 23309 10/23/2018 ([id number]) 09637 EST. PATIENT, LEVEL III Diagnosis: Cellulitis of right finger[ICD10: L03.011] Diagnosis: Type 2 diabetes mellitus with foot ulcer[ICD10: E11.621] Diagnosis: Pain in right hand[ICD10: M79.641] Melida Ha MD, [facility] CPT-4: 93877 10/21/2018 70030 EST. PATIENT, LEVEL III Diagnosis: Spontaneous ecchymoses[ICD10: R23.3] Diagnosis: Cellulitis of right lower limb[ICD10: L03.115] Diagnosis: Cellulitis of left lower limb[ICD10: L03.116] Madeline Ha MD, [facility] CPT-4: 75513 10/17/2018 ([id number]) 47340 EST. PATIENT, LEVEL III Diagnosis: Cough[ICD10: R05] Diagnosis: Acute bronchitis, unspecified[ICD10: J20.9] Melida Ha MD, [facility] CPT-4: 23480 10/14/2018 [id number] EST. PATIENT, LEVEL III Diagnosis: Acute laryngopharyngitis[ICD10: J06.0] Diagnosis: Cough[ICD10: R05] Madeline Ha MD, [facility] CPT-4: 34903 09/30/2018 ([id number]) 30278 EST. PATIENT, LEVEL III Diagnosis: Acute recurrent maxillary sinusitis[ICD10: J01.01] Diagnosis: Cough[ICD10: R05] Diagnosis: Type 2 diabetes mellitus with hyperglycemia[ICD10: E11.65] Marcela Ha MD, [facility] CPT-4: 00711 09/09/2018 ([id number]) 46794 EST. PATIENT, LEVEL IV Diagnosis: Essential (primary) hypertension[ICD10: I10] Diagnosis: Mixed hyperlipidemia[ICD10: E78.2] Diagnosis: Bipolar disorder, current episode depressed, moderate[ICD10: F31.32] Diagnosis: Type 2 diabetes mellitus with other specified complication[ICD10: E11.69] Melida Ha MD, [facility] CPT-4: 17016 2017 ([id number]) 24491 EST. PATIENT, LEVEL III Diagnosis: Insomnia due to medical condition[ICD10: G47.01] Marcela Ha MD, [facility] CPT-4: 20456 07/16/2018 ([id number]) Miscellaneous no charge Diagnosis: Cough[ICD10: R05] Madeline Ha MD, [facility] CPT-4: 06309 07/01/2018 [id number] EST. PATIENT, LEVEL III Diagnosis: Cough[ICD10: R05] Diagnosis: Acute laryngopharyngitis[ICD10: J06.0] Diagnosis: Other allergic rhinitis[ICD10: J30.89] Madeline Ha MD, [facility] CPT-4: 76591 06/28/2018 ([id number]) 53056 EST. PATIENT, LEVEL IV Diagnosis: Type 2 diabetes mellitus with hyperglycemia[ICD10: E11.65] Diagnosis: Essential (primary) hypertension[ICD10: I10] Melida Ha MD, [facility] CPT-4: 98067 06/18/2018 ([id number]) 59781 EST. PATIENT, LEVEL IV Diagnosis: Type 2 diabetes mellitus with hyperglycemia[ICD10: E11.65] Diagnosis: Essential (primary) hypertension[ICD10: I10] Diagnosis: Localized edema[ICD10: R60.0] Melida Ha MD, [facility] CPT- 4: 19806 06/04/2018 ([id number]) 84846 EST. PATIENT, LEVEL III Diagnosis: Type 2 diabetes mellitus with hyperglycemia[ICD10: E11.65] Diagnosis: Myalgia[ICD10: M79.1] Diagnosis: Pain in right hip[ICD10: M25.551] Diagnosis: Pain in left hip[ICD10: M25.552] Marcela Ha MD, [facility] CPT-4: 52674 05/13/2018 ([id number]) 78316 EST. PATIENT, LEVEL III Diagnosis: Myalgia[ICD10: M79.1] Diagnosis: Pain in right hip[ICD10: M25.551] Diagnosis: Pain in left hip[ICD10: M25.552] Marcela Ha MD, [facility] CPT-4: 73653 05/02/2018 ([id number]) 09570 EST. PATIENT, LEVEL IV Diagnosis: Essential (primary) hypertension[ICD10: I10] Diagnosis: Type 2 diabetes mellitus with hyperglycemia[ICD10: E11.65] Diagnosis: Major depressive disorder, single episode, moderate[ICD10: F32.1] Diagnosis: Myalgia[ICD10: M79.1] Marcela Ha MD, [facility] CPT-4: 22917 04/29/2018 ([id number]) 14455 EST. PATIENT, LEVEL IV Diagnosis: Type 2 diabetes mellitus with hyperglycemia[ICD10: E11.65] Diagnosis: Essential (primary) hypertension[ICD10: I10] Diagnosis: Major depressive disorder, single episode, moderate[ICD10: F32.1] Melida Ha MD, [facility] CPT-4: 05216 03/13/2018 ([id number]) 53923 EST. PATIENT, LEVEL III Diagnosis: Type 2 diabetes mellitus with hyperglycemia[ICD10: E11.65] Diagnosis: Bipolar disorder, current episode depressed, moderate[ICD10: F31.32] Diagnosis: Orthostatic hypotension[ICD10: I95.1] Marcela Ha MD, [facility] CPT-4: 44341 03/07/2018 ([id number]) 00947 EST. PATIENT, LEVEL IV Diagnosis: Type 2 diabetes mellitus with hyperglycemia[ICD10: E11.65] Diagnosis: Major depressive disorder, single episode, moderate[ICD10: F32.1] Diagnosis: Orthostatic hypotension[ICD10: I95.1] Diagnosis: Other fatigue[ICD10: R53.83] Marcela Ha MD, [facility] CPT-4: 50248 02/28/2018 46400 EST. PATIENT, LEVEL IV Diagnosis: Other fatigue[ICD10: R53.83] Diagnosis: Other malaise[ICD10: R53.81] Diagnosis: Gastro-esophageal reflux disease without esophagitis[ICD10: K21.9] Madeline Ha MD, [facility] CPT-4: 58548 02/13/2018 ([id number]) 10273 EST. PATIENT, LEVEL IV Diagnosis: Type 2 diabetes mellitus with foot ulcer[ICD10: E11.621] Diagnosis: Essential (primary) hypertension[ICD10: I10] Diagnosis: Gastro-esophageal reflux disease without esophagitis[ICD10: K21.9] Marcela Ha MD, [facility] CPT-4: 82508 01/29/2018 72026 EST. PATIENT, LEVEL III Diagnosis: Other malaise[ICD10: R53.81] Diagnosis: Other fatigue[ICD10: R53.83] Diagnosis: Pain in right shoulder[ICD10: M25.511] Diagnosis: Pain in left shoulder[ICD10: M25.512] Madeline Ha MD, [facility] CPT-4: 96925 08/27/2017 ([id number]) 17717 EST. PATIENT, LEVEL IV Diagnosis: Essential (primary) hypertension[ICD10: I10] Diagnosis: Type 2 diabetes mellitus with hyperglycemia[ICD10: E11.65] Diagnosis: VACCIN FOR INFLUENZA[ICD10: Z23] Melida Ha MD, [facility] CPT-4: 69563 08/16/2017 70988 EST. PATIENT, LEVEL III Diagnosis: Zoster without complications[ICD10: B02.9] Madeline Ha MD, [facility] CPT-4: 05006 07/26/2017 ([id number]) 07178 EST. PATIENT, LEVEL III Diagnosis: Cellulitis of right lower limb[ICD10: L03.115] Marcela Ha MD [facility] CPT-4: 53034 07/03/2017 72946 EST. PATIENT, LEVEL II Diagnosis: Laceration without foreign body of left forearm, initial encounter[ ICD10: S51.812A] Marcela Ha MD [facility] CPT-4: 91491 06/29/2017 ([id number]) 75644 EST. PATIENT, LEVEL III Diagnosis: Cellulitis of right lower limb[ICD10: L03.115] Diagnosis: Type 2 diabetes mellitus with foot ulcer[ICD10: E11.621] Marcela Ha MD [facility] CPT-4: 10759 06/18/2017 ([id number]) 28229 EST. PATIENT, LEVEL IV Diagnosis: Cellulitis of right lower limb[ICD10: L03.115] Diagnosis: Acute laryngopharyngitis[ICD10: J06.0] Diagnosis: Gastro-esophageal reflux disease without esophagitis[ICD10: K21.9] Marcela Ha MD, [facility] CPT-4: 40043 06/07/2017 ([id number]) 08099 EST. PATIENT, LEVEL III Diagnosis: Type 2 diabetes mellitus with hyperglycemia[ICD10: E11.65] Diagnosis: Insect bite (nonvenomous) of abdominal wall, initial encounter[ICD10 : S30.861A] Marcela Ha MD [facility] CPT-4: 99579 05/17/2017 ([id number]) 94961 EST. PATIENT, LEVEL III Diagnosis: Allergic contact dermatitis due to plants, except food[ICD10: L23.7] Melida Ha MD, [facility] CPT-4: 66556 05/04/2017 ([id number]) 14692 EST. PATIENT, LEVEL III Diagnosis: Essential (primary) hypertension[ICD10: I10] Marcela Ha MD, [facility] CPT-4: 55807 03/15/2017 ([id number]) 85112 EST. PATIENT, LEVEL III Diagnosis: Cough[ICD10: R05] Diagnosis: Essential (primary) hypertension[ICD10: I10] Marcela Ha MD [facility] CPT-4: 94442 03/01/2017 ([id number]) 01061 EST. PATIENT, LEVEL III Diagnosis: Cough[ICD10: R05] Diagnosis: Nasal congestion[ICD10: R09.81] Diagnosis: Acute recurrent maxillary sinusitis[ICD10: J01.01] Marcela Ha MD [facility] CPT-4: 21168 02/16/2017 ([id number]) 03777 EST. PATIENT, LEVEL III Diagnosis: Type 2 diabetes mellitus with hyperglycemia[ICD10: E11.65] Marcela Ha MD [facility] CPT-4: 91715 02/12/2017 ([id number]) 08951 EST. PATIENT, LEVEL IV Diagnosis: Type 2 diabetes mellitus with hyperglycemia[ICD10: E11.65] Diagnosis: Muscle weakness (generalized)[ICD10: M62.81] Diagnosis: Disorientation, unspecified[ICD10: R41.0] Marcela Ha MD [facility] CPT-4: 14820 02/05/2017 ([id number]) Patient admitted to the hospital from clinic (NO CHARGE) Diagnosis: Type 2 diabetes mellitus with hyperglycemia[ICD10: E11.65] Diagnosis: Disorientation, unspecified[ICD10: R41.0] Diagnosis: Muscle weakness (generalized)[ICD10: M62.81] Marcela Ha MD [facility] CPT-4: 38893A 01/29/2017 ([id number]) Miscellaneous no charge Diagnosis: Cellulitis of right lower limb[ICD10: L03.115] Marcela Ha MD [facility] CPT-4: 34841 10/13/2016 ([id number]) Miscellaneous no charge Diagnosis: Type 2 diabetes mellitus with foot ulcer[ICD10: E11.621] Diagnosis: Pain in right foot[ICD10: M79.671] Marcela Ha MD [facility] CPT-4: 75175 10/09/2016 [id number] EST. PATIENT, LEVEL II Diagnosis: Cellulitis of right lower limb[ICD10: L03.115] Marcela Ha MD [facility] CPT-4: 91415 10/06/2016 ([id number]) 76028 EST. PATIENT, LEVEL IV Diagnosis: Low back pain[ICD10: M54.5] Diagnosis: Other deformities of toe(s) (acquired), left foot[ICD10: M20.5X2] Diagnosis: Type 2 diabetes mellitus with foot ulcer[ICD10: E11.621] Marcela Ha MD , [facility] CPT-4: 51751 07/18/2016 ([id number]) 02476 EST. PATIENT, LEVEL III Diagnosis: Type 2 diabetes mellitus with hyperglycemia[ICD10: E11.65] Marcela Ha MD, [facility] CPT-4: 33036 06/22/2016 ([id number]) 87082 EST. PATIENT, LEVEL IV Diagnosis: Type 2 diabetes mellitus with hyperglycemia[ICD10: E11.65] Diagnosis: Mixed hyperlipidemia[ICD10: E78.2] Diagnosis: Other hemoglobinopathies[ICD10: D58.2] Marcela Ha MD, [facility] CPT-4: 38787 05/23/2016 ([id number]) 93460 EST. PATIENT, LEVEL IV Diagnosis: Type 2 diabetes mellitus with other specified complication[ICD10: E11.69] Diagnosis: Dehydration[ICD10: E86.0] Marcela Ha MD, [facility] CPT-4: 62069 05/15/2016 ([id number]) OFFICE VISIT, NEW - LEVEL 3 Diagnosis: Allergic contact dermatitis due to plants, except food[ICD10: L23.7] Madeline Ha MD, [facility] CPT-4: 90253 01/20/2016 Plan of Care Planned Activity Notes Codes Status Date Referral: Niko Mantilla Referral Completed 11/04/2018 Visit Plan: Pneumonia, cough - recent diagnosis of Moraxella Cattharalis - with sensitivity to levaquin - will give 2 wks of levaquin since he had improvement but no full resolution of symptoms. 10/30/2018 Appointment: Melida Ha WPtel: [address] [place], [place] [address] 30 min appointments only in this slot [...] evaluation 10/24/2018 App[facility]ment[phone] [phone] ([facility]) Complex 10/24/2018 Patient Education: Patient Medication Summary Completed 10/24/2018 Care Plan: Referral Order SNOMED-CT : [id number] Pending 10/24/2018 Visit Plan: Hypotension - discussed [...] controlled. 10/23/2018 Appointment: [phone] [facility] (15 min) Moderate 10/23/2018 Patient Education: [...] and plan. 10/21/2018 Appointment: Marcela Oshea WPtel: [facility] [address] (30 min) Complex 10/21/2018 Patient Education: Patient [...] warmth, discharge. 10/17/2018 Appointment: Madeline Kennedy WPtel: [facility] (15 min) Moderate 10/17/2018 Patient Education: [...] acutely worsen. 10/14/2018 Appointment: Marcela Oshea WPtel: [phone] (15 min) Moderate 10/14/2018 Patient Education: Patient Medication Summary Completed 10/14/2018 Care Plan: CHEST X-RAY 2VW FRONTAL&LATL LOINC : 96604-9 Pending 10/14/2018 Visit Plan: URI - Pt [...] allergy spray. 09/30/2018 Appointment: Madeline Kennedy WPtel: [address] [place], [place] [phone] (15 min) Moderate 09/30/2018 Patient Education: Patient [...] A1C 09/09/2018 Appointment: Marcela Oshea WPtel: [address] [place], [place] [phone] (15 min) Moderate 09/09/2018 Patient Education: Patient Medication Summary Completed 09/09/2018 Patient Education: Patient Medication Summary Completed 09/06/2018 Patient Education: Cholesterol Management Completed 09/06/2018 Care Plan: Comp Metabolic Pending 09/06/2018 Care Plan: Cbc With Differential Pending 09/06/2018 Care Plan: %Hba1C LOINC : 28823-9 Pending 09/06/2018 Care Plan: Tsh Pending 09/06/2018 Care Plan: Lipid Pending 09/06/2018 Appointment: Marcela Oshea WPtel: [phone] (15 min) Moderate 08/26/2018 Appointment: Marcela Oshea WPtel: [phone] (15 min) Moderate 08/23/2018 Visit Plan: [...] in clinic. 07/22/2018 Appointment: Melida Ha WPtel: [facility] ([facility] min) Moderate 07/22/2018 Patient Education: [...] time insomnia. 07/16/2018 Appointment: Marcela Oshea WPtel: [phone] (30 min) Complex 07/16/2018 Patient Education: Patient Medication Summary Completed 07/16/2018 Visit Plan: cough - improved - notify clinic if symptoms do not completely resolve, or with any questions or concerns. 07/01/2018 Appointment: Madeline Kennedy WPtel: [phone] [facility] (15 min) Moderate 07/01/2018 Patient [...] spray. 06/28/2018 Appointment: Madeline Kennedy WPtel: [phone] [facility] (15 min) Moderate 06/28/2018 Patient Education: [...] at home. 06/18/2018 Appointment: Melida aH [facility]Ptel[phone] [facility] (15 min) Moderate 06/18/2018 Patient Education: [...] swelling improves. 06/04/2018 Appointment: Melida Ha [phone] [place] (15 min) Moderate 06/04/2018 Patient [...] allow for greater blood glucose control. Joint ggsn-prqlmarx-qmevdmu- symptoms have improved -stop meloxicam due to upset stomach-call if symptoms return 05/13/2018 Appointment: Marcela Oshea WPtel: [phone] (30 min) Complex 05/13/2018 Patient Education: Patient Medication Summary Completed 05/13/2018 Visit Plan: Bilateral hip kadi-upgbxoxk-cludltg IM injection administered today for c/o continued myalgia/arthralgia. Patient to start taking Meloxicam 15mg PO daily. Advised to return to clinic if symptoms do not improve. 05/02/2018 Appointment: Marcela Oshea WPtel: [phone] (30 min) Complex 05/02/2018 Patient Education: [...] readings at home. Diabetes Mellitus -check labs Wespfyfc-amfjizy-xkty bite-rx for doxycycline-follow up in 2 weeks 04/29/2018 Appointment: Marcela Oshea WPtel: [phone] (15 min) Moderate 04/29/2018 Patient Education: Patient Medication Summary Completed 04/29/2018 Appointment: Melida Ha WPtel: [facility] (15 min) Moderate 04/15/2018 Appointment: Marcela Oshea WPtel: [address] [place], [place] [phone] (30 min) Complex 03/21/2018 Visit Plan: Hypertension [...] on cymbalta 03/13/2018 Appointment: Melida Ha WPtel: [facility] (30 min) Complex 03/13/2018 Patient Education: Patient Medication Summary Completed 03/13/2018 Visit Plan: DM-continue same medications-monitor blood sugars routinely as directed -rx for new glucometer and test strips provided Bipolar-currently depressed-patient start on vraylar-follow up in 2 weeks, sooner if needed. Patient and verbalied understanding of plan. Hypotension- stay off losartan 03/07/2018 Appointment: Marcela Oshea WPtel: [phone] [place] (30 min) Complex 03/07/2018 Patient Education: Patient Medication Summary Completed 03/07/2018 Appointment: Melida Ha WPtel: [facility] (15 min) Moderate 03/04/2018 Visit Plan: [...] this patient. 02/28/2018 Appointment: Marcela Oshea WPtel: [phone] (30 min) Complex 02/28/2018 Patient Education: [...] not improving. 02/13/2018 Appointment: Madeline Kennedy WPtel: [facility] (15 min) Moderate 02/13/2018 Patient Education: Patient Medication Summary Completed 02/13/2018 Referral: [place] Patient informed. Referral info faxed. Completed Visit Plan: DM-weight loss-not checking blood sugars- patient sent for labs today HTN-low ozfmj-fotzfhc-dbrnh labs Callus of foot and fissue of [...] improving. 01/29/2018 Appointment: Marcela Oshea WPtel: [phone] [phone] [place] (30 min) Complex 01/29/2018 Patient Education: Patient Medication Summary Completed 01/29/2018 Care Plan: Comp Metabolic Cancelled 01/29/2018 Care Plan: Cbc With Differential Cancelled 01/29/2018 Care Plan: %Hba1C LOINC : 78780-8 Cancelled 01/29/2018 Care Plan: Referral Order SNOMED-CT : [id number] Cancelled 01/29/2018 Visit Plan: Fatigue, malaise, joint [...] or concerns. 08/27/2017 Appointment: Madeline Kennedy WPtel: [facility] (15 min) Moderate 08/27/2017 Patient Education: [...] today - 08/16/2017 Appointment: Melida Ha WPtel: [facility] [place] (30 min) Complex 08/16/2017 Patient Education: Patient Medication Summary Completed 08/16/2017 Patient Education: Obesity Completed 08/16/2017 Appointment: Madeline Kennedy WPtel: [facility] [place] (30 min) Complex 08/07/2017 Visit Plan: [...] contagious. 07/26/2017 Appointment: Madeline Kennedy WPtel: [address] [facility] (15 min) Moderate 07/26/2017 Patient Education: Patient Medication Summary Completed 07/26/2017 Visit Plan: Cellulitis right foot-cultured today in the office-home health to reapply wound vac--appt with wound care on to evaluate for debridement- 07/03/2017 Appointment: Marcela Oshea WPtel: [phone] [phone] (30 min) Complex 07/03/2017 Patient Education: Patient Medication Summary Completed 07/03/2017 Visit Plan: Abrasion left arm - Pt was instructed to keep the wound clean, wash with antibacterial soap, use triple antibiotic ointment, call if redness, pustular drainage, or any other acute concerns. 06/29/2017 Appointment: Marcela Oshea WPtel: [phone] [phone] (15 min) Moderate 06/29/2017 Patient Education: [...] plan. 06/18/2017 Appointment: Marcela Oshea WPtel: [phone] [phone] (15 min) Moderate 06/18/2017 Patient Education: [...] prilosec 06/07/2017 [facility]ment[phone] (10 min) Simple 06/07/2017 Patient Education: [...] doxycycline 05/17/2017 App[facility]ment: [phone] (30 min) Complex 05/17/2017 Patient Education: Patient [...] if you want blue goo called into [facility]. 05/04/2017 Appointment: Marcela Oshea [facility]Ptel[phone] (30 min) Complex 05/04/2017 Patient Education: Patient [...] home. Cough-resolved 03/15/2017 Appointment: Marcela Oshea WPtel[phone] (15 min) Moderate 03/15/2017 Patient Education: Patient Medication Summary Completed 03/15/2017 Appointment: Marcela Oshea WPtel: [phone] (30 min) Complex 03/12/2017 Visit Plan: [...] discussed 02/16/2017 Appointment: [phone] (15 min) Moderate 02/16/2017 Patient Education: Patient [...] less controlled. 02/12/2017 Appointment: Marcela Oshea WPtel: [phone] (30 min) Complex 02/12/2017 Patient Education: Patient Medication Summary Completed 02/12/2017 Appointment: Marcela Oshea WPtel: [phone] (30 min) Complex 02/06/2017 Visit Plan: [...] will consider 02/05/2017 Appointment: Marcela Oshea WPtel: [phone] (30 min) Complex 02/05/2017 Patient Education: Patient Medication Summary Completed 02/05/2017 Appointment: Marcela Oshea WPtel: [phone] (30 min) Complex 01/30/2017 Visit Plan: Acute confusion-uncontrolled diabetes- chronically noncompliant with treatment and stopped his insulin several months ago-r/o stroke vs DKA-Dr Ha in to evaluate patient-plan to admit for further work up and treatment-patient's called and she transported him to the hospital 01/29/2017 Appointment: Marcela Oshea WPtel: [phone] (30 min) Complex 01/29/2017 Patient Education: Patient Medication Summary Completed 01/29/2017 Patient Education: Obesity Completed 01/29/2017 Visit Plan: Right foot pain-MRI shows foreign body-appt with Dr Grewal for evaluation on Sunday. 10/13/2016 Appointment: Marcela Oshea WPtel: [address] [place], [place] [phone] [place] (15 min) Moderate 10/13/2016 Patient Education: Patient Medication Summary Completed 10/13/2016 Appointment: Marcela Oshea WPtel: [phone] (30 min) Complex 10/12/2016 Visit Plan: Right foot bhbo-nrmmhiqb-ccljq washer dropped on foot-xray negative but pain continues to increase-recommend MRI of foot for further evaluation-refer to wound care for lesions on right foot, patient has diabetes and history of osteomyelitis-culture obtained today-continue oral abx- follow up in the office on , sooner if needed 10/09/2016 Visit Plan: Right foot yzxd-txlblvcz-dsnbw washer dropped on foot-xray negative but pain continues to increase-recommend MRI of foot for further evaluation-refer to wound care for lesions on right foot, patient has diabetes and history of osteomyelitis-culture obtained today-continue oral abx- follow up in the office on , sooner if needed 10/09/2016 Visit Plan: Right foot egxb-nvavzwjz-arxzx washer dropped on foot-xray negative but pain continues to increase-recommend MRI of foot for further evaluation-refer to wound care for lesions on right foot, patient has diabetes and history of osteomyelitis-culture obtained today-continue oral abx- follow up in the office on , sooner if needed 10/09/2016 Appointment: Marcela Oshea WPtel: [address] [place], [place] [phone] [place] (30 min) Complex 10/09/2016 Patient Education: Patient Medication Summary Completed 10/09/2016 Visit Plan: Cellulitis - continue with oral antibiotics as previously directed, return to clinic as previously directed, call for acute change in symptoms, worsening redness, warmth, discharge. 10/06/2016 Appointment: Marcela Oshea WPtel: [address] [place], [place] [phone] [place] (10 min) Simple 10/06/2016 Patient Education: Patient Medication Summary Completed 10/06/2016 Appointment: Marcela Oshea WPtel: [address] [place], [place] [phone] (30 min) Complex 08/24/2016 Referral: Sun Glynn Referral Completed 07/21/2016 Visit Plan: Low back pain- history of spinal fusion- patient for xray lumbar spine-RX sent to [facility] and instructed on use-topical voltaren samples provided and instructed on use. Ok to use tylenol as needed as well. The patient is to call the office if the pain is worsening or does not improve. Pressure ulcer left 4th toe-refer to Dr Glynn for evaluation 07/18/2016 Appointment: Marcela Oshea WPtel: [address] [place], [place] [phone] (30 min) Complex 07/18/2016 Patient Education: Patient Medication Summary Completed 07/18/2016 Patient Education: Obesity Completed 07/18/2016 Care Plan: Referral Order SNOMED-CT : [id number] Cancelled 07/18/2016 Visit Plan: Diabetes Mellitus - [...] glucose control. 06/22/2016 Appointment: Marcela Oshea WPtel: [phone] (30 min) Complex 06/22/2016 Patient Education: [...] CBC today 05/23/2016 [facility]ment: [phone] (30 min) Complex 05/23/2016 Patient Education: [...] plan. 05/15/2016 App[facility]ment: [facility] [address] [phone] (15 min) Moderate 05/15/2016 Patient Education: [...] if you want anai edge called into [facility]. 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 Low back pain- history of spinal fusion-patient for xray lumbar spine-RX sent to [facility] and instructed on use-topical voltaren samples [...] for fracture from injury . Right foot erja-fjxrekyx-pyivy washer dropped on foot-xray negative but pain [...] for fracture from injury . Right foot ecmw-cytfkuhd-fagmg washer dropped on foot-xray negative but pain [...] for fracture from injury . Right foot jrax-lvivvyot-kqeci washer dropped on foot-xray negative but pain continues to increase-recommend MRI of foot for further evaluation-refer to wound care for lesions on right foot, patient has diabetes and history of osteomyelitis-culture obtained today-continue oral abx-follow up in the office on , sooner if needed . Bilateral hip lfjz-vybzrsix-vuspqki IM injection administered today for c/o continued myalgia/arthralgia. Patient to start taking Meloxicam 15mg PO daily. Advised to return to clinic if symptoms do not improve. . DM-weight loss-not checking blood sugars-patient sent for labs today HTN-low hndyw-vdomtgp-terwe labs Callus of foot and fissue of [...] readings are starting to become less controlled. Crrltkxda-qtlmgfme-dxafpdfb to monitor Generalized weakness-refer for PT-patient refuses [...] allow for greater blood glucose control. Joint lqni-cgdmcnel-pfjysxg-symptoms have improved -stop meloxicam due to upset [...] readings at home. Diabetes Mellitus -check labs Lupqgxsw-arkpjft-rokz bite-rx for doxycycline-follow up in 2 weeks [...]
--- OUTSIDE RECORDS SUMMARY | 2019-01-01 14:54 | XMS REPORT | CCD ---
Author Author Madeline Kennedy MD, [facility] Address [address] [place] [address] Phone Care Team Providers Care Social Contact Worker Name Role Phone PP Unavailable CCM Unavailable Summary Purpose Interface Exchange Insurance Providers Payer name Policy type / Coverage type Covered green party ID Effective Begin Date Effective End Date Blue Cross Blue Shield [facility] Blue Cross/Blue Shield [id number] Unknown Family history Father Diagnosis Age At Onset Hyperlipidemia Unknown Heart Attack Unknown Mother Diagnosis Age At Onset Hypertension Unknown Social History Social History Element Codes Description Effective Dates Marital status Unknown Mignon 01/20/2016 Number of children Unknown 4 01/20/2016 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/[address]: 717028966 Never smoker 01/20/[address]: 683745797 Never drinks alcohol 01/20/2016 Allergies, Adverse Reactions, [...] Fill Instructions Levaquin 500 mg tablet RxNorm: 072952 1 Tablet(s) PO daily TAKE ONE TABLET BY MOUTH DAILY UNTIL GONE 10/31/20182018 Active Levaquin 500 mg tablet RxNorm: 571786 1 Tablet(s) PO daily 11/12/2018 Active valsartan 80 mg tablet RxNorm: 421698 1/2 Tablet(s) PO daily 04/20/2019 Active doxycycline hyclate 100 mg tablet RxNorm: 5157495 1 Tablet(s) PO BID 10/21/2018 10/27/2018 Inactive ketorolac 60 mg/2 mL intramuscular solution RxNorm: 5492926 Milliliter(s) IM 10/21/2018 10/21/2018 Inactive Levaquin 500 mg tablet RxNorm: 297189 1 Tablet(s) PO daily 10/31/2018 Inactive albuterol sulfate 2.5 mg/3 mL (0.083 %) solution for nebulization RxNorm: 982148 3 Milliliter(s) INH UD 10/14/2018 No Stop Date Active Tessalon Perles 100 mg capsule RxNorm: 921238 1-2 Capsule(s) PO TID PRN 10/14/2018 No Stop Date Active Levaquin 500 mg tablet RxNorm: 066712 1 Tablet(s) PO daily 08/201810/16/2018 Inactive Coreg 6.25 mg tablet RxNorm: 339121 TAKE ONE TABLET BY MOUTH TWICE A DAY 09/30/2018 03/28/2019 Active albuterol sulfate 2.5 mg/3 mL (0.083 %) solution for nebulization RxNorm: 993108 3 Milliliter(s) INH UD 09/30/201807/2018 Inactive Kenalog 40 mg/mL suspension for injection RxNorm: 4469168 1.5 Milliliter(s) Inj 09/30/2018 09/30/2018 Inactive Keflex 500 mg capsule RxNorm: 496198 1 Capsule(s) PO TID 201710/03/2018 Inactive prednisone 20 mg tablet RxNorm: 696745 2 Tablet(s) PO daily 09/29/2018 Inactive Kenalog 40 mg/mL suspension for injection RxNorm: 8541348 Milliliter(s) Inj 09/11/2018 09/11/2018 Inactive Zyrtec 10 mg tablet RxNorm: 4616913 1 Tablet(s) PO daily 09/0910/08/2018 Inactive Keflex 500 mg capsule RxNorm: 882753 1 Capsule(s) PO TID 201709/15/2018 Inactive Tresiba FlexTouch U-200 insulin 200 unit/mL (3 mL) subcutaneous pen RxNorm: 6603050 50 Unit(s) SQ daily 08/30/2018 08/29/2018 Inactive please give him 30 day supply Tresiba FlexTouch U-200 insulin 200 unit/mL (3 mL) subcutaneous pen RxNorm: 8697072 50 Unit(s) SQ daily 08/30/2018 09/28/2018 Inactive please give him 30 day supply Novolog Flexpen U-100 Insulin aspart 100 unit/mL subcutaneous RxNorm: 3613274 8 Unit(s) SQ AC 08/13/2018 No Stop Date Active Novolog Flexpen U-100 Insulin aspart 100 unit/mL subcutaneous RxNorm: 1813867 8 Unit(s) SQ AC 07/22/20182017 Inactive this is an update on his medication Novolog Flexpen U-100 Insulin aspart 100 unit/mL subcutaneous RxNorm: 5699948 12 Unit(s) SQ AC 07/05/20182017 Inactive this is an update on his medication Toujeo SoloStar U-300 Insulin 300 unit/mL (1.5 mL) subcutaneous pen RxNorm: 5217784 INJECT 50 UNITS UNDER THE SKIN DAILY 07/01/2018 08/29/2018 Inactive Mucinex 600 mg tablet, extended release RxNorm: 753867 1 Tablet(s) PO BID 06/28/2018 07/04/2018 Inactive Zofran 4 mg tablet RxNorm: 704988 1 Tablet(s) PO TID as needed nausea 06/28/2018 07/02/2018 Inactive Kenalog 40 mg/mL suspension for injection RxNorm: 6311280 Milliliter(s) Inj 06/28/2018 06/28/2018 Inactive Flonase Allergy Relief 50 mcg/actuation nasal spray, suspension RxNorm: 2311720 1 [place] NASAL BID 06/28/20182017 Inactive Lyrica 50 mg capsule RxNorm: 355285 Capsule(s) PO daily 201707/07/2018 Inactive Novolog Flexpen U-100 Insulin aspart 100 unit/mL subcutaneous RxNorm: 6812493 10 Unit(s) SQ AC 06/18/20182017 Inactive this is an update on his medication Lasix 20 mg tablet RxNorm: 155058 1 Tablet(s) PO BIW 201707/02/2018 Inactive atorvastatin 80 mg tablet RxNorm: 878343 1 Tablet(s) PO QHS 04/201812/06/2018 Active clonazepam 1 mg tablet RxNorm: 432462 2 Tablet(s) PO HS 201706/04/2019 Active clonazepam 1 mg tablet RxNorm: 989144 2 Tablet(s) PO HS as needed 06/10/2018 06/09/2018 Inactive Lyrica 50 mg capsule RxNorm: 542286 Capsule(s) PO daily 201707/08/2018 Inactive Lasix 20 mg tablet RxNorm: 565286 1 Tablet(s) PO TIW 201706/11/2018 Inactive Toujeo SoloStar U-300 Insulin 300 unit/mL (1.5 mL) subcutaneous pen RxNorm: 6560672 50 Unit(s) SQ daily 05/07/2018 06/30/2018 Inactive meloxicam 15 mg tablet RxNorm: 876639 15 Milligram(s) PO daily 05/02/2018 05/12/2018 Inactive ketorolac 30 mg/mL injection solution RxNorm: 993915 2 Milliliter(s) Inj 05/02/2018 05/02/2018 Inactive Toujeo SoloStar U-300 Insulin 300 unit/mL (1.5 mL) subcutaneous pen RxNorm: 6844828 45 Unit(s) daily 04/29/2018 Inactive clonazepam 1 mg tablet RxNorm: 555564 1 Tablet(s) PO Q8 as needed 04/29/2018 06/09/2018 Inactive doxycycline hyclate 100 mg tablet RxNorm: 3760982 1 Tablet(s) PO BID 04/29/2018 05/12/2018 Inactive Cymbalta 30 mg capsule,delayed release RxNorm: 190535 1 Capsule(s) PO QAM 03/13/2018 10/08/2018 Inactive Lexapro 10 mg tablet RxNorm: 784105 1 Tablet(s) PO QPM 201703/03/2018 Inactive Toujeo SoloStar U-300 Insulin 300 unit/mL (1.5 mL) subcutaneous pen RxNorm: 5016478 20 Unit(s) daily 02/28/2018 Inactive Protonix 40 mg tablet,delayed release RxNorm: 854790 1 Tablet(s) PO daily 01/29/2018 06/09/2018 Inactive clonazepam 1 mg tablet RxNorm: 537023 1 Tablet(s) PO Q8 as needed 12/12/2017 03/10/2018 Inactive Tamiflu 75 mg capsule RxNorm: 646669 1 Capsule(s) PO BID 201712/03/2017 Inactive doxycycline hyclate 100 mg capsule RxNorm: 7285947 1 Capsule(s) PO BID 09/07/2017 09/20/2017 Inactive doxycycline hyclate 100 mg capsule RxNorm: 1991654 1 Capsule(s) PO BID 08/27/2017 09/06/2017 Inactive prednisone 20 mg tablet RxNorm: 260957 2 Tablet(s) PO daily 08/31/2017 Inactive clopidogrel 75 mg tablet RxNorm: 563437 1 Tablet(s) PO daily 06/09/2018 Inactive atorvastatin 40 mg tablet RxNorm: 758445 1 Tablet(s) PO QHS 02/27/2018 Inactive losartan 25 mg tablet RxNorm: 545202 TAKE ONE TABLET BY MOUTH DAILY 08/22/2017 06/09/2018 Inactive Toujeo SoloStar 300 unit/mL (1.5 mL) subcutaneous insulin pen RxNorm: 2504236 45 Unit(s) daily 08/17/2017 08/20/2017 Inactive mupirocin 2 % topical ointment RxNorm: 796128 1 Application TOP TID to the lesions on chest 08/16/2017 08/25/2017 Inactive Toujeo SoloStar 300 unit/mL (1.5 mL) subcutaneous insulin pen RxNorm: 3951540 40 Unit(s) daily 08/16/2017 08/16/2017 Inactive valacyclovir 1 gram tablet RxNorm: 743211 1 Tablet(s) PO TID 08/01/2017 Inactive clonazepam 1 mg tablet RxNorm: 383426 1 Tablet(s) PO Q8 as needed 07/03/2017 09/30/2017 Inactive Levaquin 500 mg tablet RxNorm: 631479 1 Tablet(s) PO daily 06/25/2017 Inactive Levaquin 500 mg tablet RxNorm: 437476 1 Tablet(s) PO daily 06/21/2017 Inactive losartan 25 mg tablet RxNorm: 436247 1 Tablet(s) PO daily 201608/16/2017 Inactive nystatin 100,000 unit/mL oral suspension RxNorm: 000345 5 Milliliter(s) PO QID Swish et swallow 06/18/2017 06/17/2017 Inactive nystatin 100,000 unit/mL oral suspension RxNorm: 450081 5 Milliliter(s) PO QID Swish et swallow 06/18/2017 06/27/2017 Inactive Cipro 500 mg tablet RxNorm: 855042 1 Tablet(s) PO BID 201606/18/2017 Inactive Cipro 500 mg tablet RxNorm: 238579 1 Tablet(s) PO BID 201606/11/2017 Inactive Toujeo SoloStar 300 unit/mL (1.5 mL) subcutaneous insulin pen RxNorm: 4271372 INJECT 10 UNITS UNDER THE SKIN DAILY 06/12/2017 08/15/2017 Inactive Keflex 500 mg capsule RxNorm: 749902 1 Capsule(s) PO TID 201606/13/2017 Inactive doxycycline hyclate 100 mg capsule RxNorm: 7661073 1 Capsule(s) PO BID 05/17/2017 05/21/2017 Inactive doxycycline hyclate 100 mg capsule RxNorm: 5602757 1 Capsule(s) PO BID 05/11/2017 05/16/2017 Inactive losartan 25 mg tablet RxNorm: 819119 1 Tablet(s) PO daily 201606/17/2017 Inactive atorvastatin 40 mg tablet RxNorm: 964380 1 Tablet(s) PO daily 03/01/2017 08/23/2017 Inactive clopidogrel 75 mg tablet RxNorm: 039119 1 Tablet(s) PO daily 08/23/2017 Inactive Flonase Allergy Relief 50 mcg/actuation nasal spray, suspension RxNorm: 2583395 2 [place] NASAL daily 02/16/20172016 Inactive Augmentin 875 mg-125 mg tablet RxNorm: 531502 1 Tablet(s) PO BID 02/16/2017 02/22/2017 Inactive GET PROBIOTIC TO TAKE WHILE ON ABX Tamiflu 75 mg capsule RxNorm: 147798 1 Capsule(s) PO BID 201602/20/2017 Inactive ceftriaxone 500 mg solution for injection RxNorm: 2635047 1 Milliliter(s) Inj 02/16/2017 02/16/2017 Inactive Kenalog 40 mg/mL suspension for injection RxNorm: 6565170 1 Milliliter(s) Inj 02/16/2017 02/16/2017 Inactive Toujeo SoloStar 300 unit/mL (1.5 mL) subcutaneous insulin pen RxNorm: 3009280 25 Unit(s) SQ QAM 02/12/2017 06/10/2017 Inactive Toujeo SoloStar 300 unit/mL (1.5 mL) subcutaneous insulin pen RxNorm: 1526734 10 Unit(s) SQ QAM 02/05/2017 02/11/2017 Inactive lisinopril 10 mg tablet RxNorm: 713705 1 Tablet(s) PO daily 02/28/2017 Inactive atorvastatin 40 mg tablet RxNorm: 664158 1 Tablet(s) PO daily 02/01/2017 02/28/2017 Inactive doxycycline hyclate 100 mg capsule RxNorm: 8122489 1 Capsule(s) PO BID 02/01/2017 02/10/2017 Inactive clonazepam 1 mg tablet RxNorm: 560467 1 Tablet(s) PO Q8 as needed 10/09/2016 01/05/2017 Inactive ceftriaxone 1 gram solution for injection RxNorm: 4064486 Inj 10/06/2016 10/06/2016 Inactive cyclobenzaprine 10 mg tablet RxNorm: 388883 1/2-1 Tablet(s) PO TID PRN 07/18/2016 01/28/2017 Inactive clonazepam 1 mg tablet RxNorm: 544048 1 Tablet(s) PO Q8 as needed 05/31/2016 05/29/2016 Inactive clonazepam 1 mg tablet RxNorm: 806628 1 Tablet(s) PO Q8 as needed 05/31/2016 08/28/2016 Inactive Alyson SoloStar 300 unit/mL (1.5 mL) subcutaneous insulin pen RxNorm: 9831043 10 Unit(s) SQ daily 05/23/2016 01/28/2017 Inactive Crestor 10 mg tablet RxNorm: 670861 1 Tablet(s) PO QHS 201501/28/2017 Inactive Crestor 10 mg tablet RxNorm: 729116 1 Tablet(s) PO QHS 201505/18/2016 Inactive clonazepam 1 mg tablet RxNorm: 013595 1 Tablet(s) PO Q8 as needed 04/25/2016 05/30/2016 Inactive prednisone 20 mg tablet RxNorm: 647459 3 Tablet(s) PO daily 06/201602/10/2016 Inactive prednisone 20 mg tablet RxNorm: 253138 3 Tablet(s) PO daily 06/201605/14/2016 Inactive Kenalog 40 mg/mL suspension for injection RxNorm: 0816597 Milliliter(s) Inj 01/20/2016 01/20/2016 Inactive aspirin 81 mg tablet,delayed release RxNorm: 120476 1 Tablet(s) PO daily No Start Date Active Brilinta 90 mg tablet RxNorm: 3933741 1 Tablet(s) PO BID No Start Date Active acetaminophen 500 mg tablet RxNorm: 360085 1-2 Tablet(s) PO as needed No Start Date Active clopidogrel 75 mg tablet RxNorm: 173925 1 Tablet(s) PO daily No Start Date 02/28/2017 Inactive Novolog Flexpen U-100 Insulin aspart 100 unit/mL subcutaneous RxNorm: 9663718 5 units with breakfast lunch and 10 supper Unit(s) SQ No Start Date 06/17/2018 Inactive clonazepam 1 mg tablet RxNorm: 321611 1 Tablet(s) PO QHS No Start Date 04/24/2016 Inactive Coreg 6.25 mg tablet RxNorm: 969488 1 Tablet(s) PO BID No Start Date 09/29/2018 Inactive acyclovir 400 mg tablet RxNorm: 181519 2 Tablet(s) PO 5x daily No Start Date 02/28/2017 Inactive Lyrica 50 mg capsule RxNorm: 128074 Capsule(s) PO BID No Start Date 06/09/2018 Inactive Vraylar 3 mg capsule RxNorm: 6574260 1 Capsule(s) PO daily No Start Date 03/12/2018 Inactive valsartan 80 mg tablet RxNorm: 623258 1 Tablet(s) PO daily No Start Date 10/22/2018 Inactive Medication Administered Medication Codes Instructions Start Date Status ketorolac 60 mg/2 mL intramuscular solution RxNorm: 5806951 Milliliter 10/21/2018 No longer Active Kenalog 40 mg/mL suspension for injection RxNorm: 9595178 1.5Milliliter 09/30/2018 No longer Active Kenalog 40 mg/mL suspension for injection RxNorm: 3545788 Milliliter 09/11/2018 No longer Active Kenalog 40 mg/mL suspension for injection RxNorm: 7518269 Milliliter 06/28/2018 No longer Active ketorolac 30 mg/mL injection solution RxNorm: 211306 2Milliliter 05/02/2018 No longer Active ceftriaxone 500 mg solution for injection RxNorm: 8563419 1Milliliter 02/16/2017 No longer Active Kenalog 40 mg/mL suspension for injection RxNorm: 5214388 1Milliliter 02/16/2017 No longer Active ceftriaxone 1 gram solution for injection RxNorm: 5521987 10/06/2016 No longer Active Kenalog 40 mg/mL suspension for injection RxNorm: 0438995 Milliliter 01/20/2016 No longer Active Immunizations Vaccine [...] Item Item Code Result Date Culture Sputum 252219 LOWER RESPIRATORY TRACT CULTURE SEE NOTES 10/16/2018 LIPID GRP 1108870 CHOLESTEROL TNP:Duplicate Order 09/10/2018 LIPID GRP 3819765 Triglyceride TNP:Duplicate Order 2017 LIPID GRP 5589049 HDL CHOLESTEROL TNP:Duplicate Order 2017 LIPID GRP 1817617 Chol/HDL Ratio TNP:Duplicate Order 2017 LIPID GRP 5323340 LDL Cholesterol TNP:Duplicate Order 2017 A1C HPLC 2211462 Hgb A1c 00664-9 TNP:Duplicate Order 2017 C Diff An [id number] GDH TNP:Lab Request 06/22/2018 C Diff An [id number] Toxin A/B TNP:Lab Request 06/22/2018 C Diff An [id number] C Diff Analyzer TNP:Lab Request 2017 C Diff An [id number] IC OK? TNP:Lab Request 06/22/2018 CBC 6122059 WBC 6.4 10e9/L 05/02/2018 CBC 6138621 RBC 5.60 10e12/L 05/02/2018 CBC 2322888 HEMOGLOBIN 17.0 g/dL 05/02/2018 CBC 3779692 HEMATOCRIT 48.0 % 05/02/2018 CBC 8089378 MCV 85.7 fL 05/02/2018 CBC 0986313 MCH 30.4 pg 05/02/2018 CBC 8360443 MCHC 35.4 g/dL 05/02/2018 CBC 1471826 PLATELET COUNT 166 10e9/L 05/02/2018 CBC 4578612 Mean Plt Volume 11.6 fL 05/02/2018 CBC 9762213 Neut Auto 48.6 % 05/02/2018 CBC 3496742 Lymph Auto 41.7 % 05/02/2018 CBC 6285392 [place] Auto 8.1 % 05/02/2018 CBC 7766874 RDW 13.1 % 05/02/2018 CBC 8385808 Eos Auto 1.1 % 05/02/2018 CBC 3299203 Baso Auto 0.5 % 05/02/2018 CBC 8961211 Neutrophil Abs 3.11 10e9/L 05/02/2018 CBC 0083822 Lymphocyte Abs 2.67 10e9/L 05/02/2018 CBC 7012452 Monocyte Abs 0.52 10e9/L 05/02/2018 CBC 5952782 Eosinophil Abs 0.07 10e9/L 05/02/2018 CBC 4548552 RDW-SD 40.0 fL 05/02/2018 CBC 2126172 Basophil Abs 0.03 10e9/L 05/02/2018 CHEM 14 2435025 AST 17 U/L 05/02/2018 CHEM 14 1406271 ALT 17 U/L 05/02/2018 CHEM 14 8723812 BUN 17 mg/dL 05/02/2018 CHEM 14 9413075 ALBUMIN 4.0 g/dL 05/02/2018 CHEM 14 2977342 CHLORIDE 97 mmol/L 05/02/2018 CHEM 14 8836639 Bili Total 0.9 mg/dL 05/02/2018 CHEM 14 1339435 ALK PHOS 67 U/L 05/02/2018 CHEM 14 5912790 SODIUM 135 mmol/L 05/02/2018 CHEM 14 8657558 CREATININE 1.18 mg/dL 05/02/2018 CHEM 14 4904109 CALCIUM 9.4 mg/dL 05/02/2018 CHEM 14 4720346 POTASSIUM 4.4 mmol/L 05/02/2018 CHEM 14 7714590 TOTAL PROTEIN 6.9 g/dL 05/02/2018 CHEM 14 8223522 GLUCOSE 316 mg/dL 05/02/2018 CHEM 14 1764480 Bicarbonate 29 mmol/L 05/02/2018 CHEM 14 0116390 AGAP 9 mmol/L 05/02/2018 MEAN GLUC 5459097 Calc Mean Gluc 283 mg/dL 05/02/2018 A1C HPLC 8921422 Hgb A1c 60667-9 11.5 % 05/02/2018 GFR CALC 1793297 GFR Non Afr Amr >60 mL/min 05/02/2018 GFR CALC 5910786 GFR Afr Amr >60 mL/min 05/02/2018 JIC Gold 6623653 JIC Gold Complete 02/28/2018 GFR CALC 3044526 GFR Non Afr Amr >60 mL/min 02/28/2018 GFR CALC 3157345 GFR Afr Amr >60 mL/min 02/28/2018 UA W/CII 0515366 UA Urine Appear Normal 02/28/2018 UA W/CII 0288316 UA Protein 1+ 02/28/2018 UA W/CII 7225572 UA Hemoglobin Negative 02/28/2018 UA W/CII 7275639 UA Glucose 4+ 02/28/2018 UA W/CII 7666419 UA Ketones Trace 02/28/2018 UA W/CII 2674952 UA pH 5.5 02/28/2018 UA W/CII 2281498 U Spec [place] 1.015 02/28/2018 UA W/CII 6516596 UA Bilirubin Negative 02/28/2018 UA W/CII 0367250 UA Nitrite NEG 02/28/2018 UA W/CII 6769771 UA Leuk Esteras Negative 02/28/2018 MICR 0769564 UA WBC/hpf 1 02/28/2018 MICR 7566669 UA RBC hpf 2 02/28/2018 MICR 1564328 UA WBC auto 3.8 /uL 02/28/2018 MICR 4547116 UA RBC auto 12.2 /uL 02/28/2018 MICR 1092848 UA SQ EPI auto 2.3 /uL 02/28/2018 MICR 7969457 UA H Cast auto 0.10 /uL 02/28/2018 CBC 8865248 WBC 6.4 10e9/L 02/28/2018 CBC 5446232 RBC 5.51 10e12/L 02/28/2018 CBC 3025483 HEMOGLOBIN 16.7 g/dL 02/28/2018 CBC 6143522 HEMATOCRIT 46.9 % 02/28/2018 CBC 2712905 MCV 85.1 fL 02/28/2018 CBC 5733989 MCH 30.3 pg 02/28/2018 CBC 4753815 MCHC 35.6 g/dL 02/28/2018 CBC 2591683 PLATELET COUNT 173 10e9/L 02/28/2018 CBC 4754463 Mean Plt Volume 11.6 fL 02/28/2018 CBC 0753710 Neut Auto 51.8 % 02/28/2018 CBC 0088337 Lymph Auto 39.9 % 02/28/2018 CBC 0722409 [place] Auto 7.3 % 02/28/2018 CBC 5821563 Eos Auto 0.8 % 02/28/2018 CBC 4199509 RDW 13.3 % 02/28/2018 CBC 6137449 Baso Auto 0.2 % 02/28/2018 CBC 1395934 Neutrophil Abs 3.32 10e9/L 02/28/2018 CBC 2030938 Lymphocyte Abs 2.55 10e9/L 02/28/2018 CBC 0348638 Monocyte Abs 0.47 10e9/L 02/28/2018 CBC 9472769 Eosinophil Abs 0.05 10e9/L 02/28/2018 CBC 8687661 Basophil Abs 0.01 10e9/L 02/28/2018 CBC 9614221 RDW-SD 40.8 fL 02/28/2018 CHEM 14 0924954 AST 17 U/L 02/28/2018 CHEM 14 2651195 ALT 17 U/L 02/28/2018 CHEM 14 2790201 BUN 20 mg/dL 02/28/2018 CHEM 14 5029474 ALBUMIN 4.1 g/dL 02/28/2018 CHEM 14 4665307 CHLORIDE 97 mmol/L 02/28/2018 CHEM 14 2268543 Bili Total 1.3 mg/dL 02/28/2018 CHEM 14 1999551 ALK PHOS 78 U/L 02/28/2018 CHEM 14 8706392 SODIUM 135 mmol/L 02/28/2018 CHEM 14 2847695 CREATININE 1.09 mg/dL 02/28/2018 CHEM 14 6226121 CALCIUM 9.6 mg/dL 02/28/2018 CHEM 14 5739014 POTASSIUM 3.8 mmol/L 02/28/2018 CHEM 14 2482014 TOTAL PROTEIN 7.3 g/dL 02/28/2018 CHEM 14 5733369 GLUCOSE 349 mg/dL 02/28/2018 CHEM 14 5259298 Bicarbonate 29 mmol/L 02/28/2018 CHEM 14 0273169 AGAP 9 mmol/L 02/28/2018 [place] Spotted Fever Igg/Igm 555137 FEI MT SPOTTED FEVER IGM EIA . 09/05/2017 [place] Spotted Fever Igg/Igm 119492 RMSF, IGM 0.17 index 09/05/2017 [place] Spotted Fever Igg/Igm 303343 FEI MT SPOTTED FEVER IGG EIA FLEX . 09/05/2017 [place] Spotted Fever Igg/Igm 255860 RMSF, IGG SCREEN-FLEX Positive 09/05/2017 Fei Mtn Spot'D Fev Igg 966913 RMSF, IGG -TITER IFA <1:64 11/2016 Ehrlichia Chaffeensis Antibody Igm 642787 EHRLICHIA CHAFFEENSIS IGM < 1:16 09/03/2017 Ehrlichia Chaffeensis Antibody Igg 981600 EHRLICHIA CHAFFEENSIS IGG <1:64 09/03/2017 Lymes Disease Total Antibodies With Western Blot Reflex B. BURGDORFERI, IGG/IGM 0.223 08/30/2017 Lymes Disease Total Antibodies With Western Blot Reflex C-Reactive Protein Qnt Crqnt CRP 0.00 mg/dl 08/27/2017 Sed Rate Ord21 ESR 8 mm/hr 08/27/2017 Comp Metabolic Hgp402 NA 135 mEq/L 08/16/2017 Comp Metabolic Xgl202 K 4.1 mEq/L 08/16/2017 Comp Metabolic Pvt611 CL 98 mEq/L 08/16/2017 Comp Metabolic Yyo254 CO2 28.0 mEq/L 08/16/2017 Comp Metabolic Ung292 ANION GAP 13 08/16/2017 Comp Metabolic Vzs582 GLUCOSE 299 mg/dL 08/16/2017 Comp Metabolic Dra794 Creat 0.9 mg/dL 08/16/2017 Comp Metabolic Dit958 eGFR 90 ml/min/1.73m2 08/16/2017 Comp Metabolic Esx802 BUN 20 mg/dL 08/16/2017 Comp Metabolic Lcv648 B/C Ratio 21.5 Ratio 08/16/2017 Comp Metabolic Exr587 CALCIUM 9.2 mg/dL 08/16/2017 Comp Metabolic Pol351 ALK PHOS 84 U/L 08/16/2017 Comp Metabolic Apy374 AST(SGOT) 19 U/L 08/16/2017 Comp Metabolic Kcx358 ALT(SGPT) 24 U/L 08/16/2017 Comp Metabolic Hiq666 BILI T 1.1 mg/dL 08/16/2017 Comp Metabolic Dos908 ALBUMIN 4.2 g/dL 08/16/2017 Comp Metabolic Jdm874 TPRO 7.2 g/dL 08/16/2017 Comp Metabolic Sfo933 GLOB 3.0 g/dL 08/16/2017 Comp Metabolic Djo480 A/G Ratio 1.4 Ratio 08/16/2017 Comp Metabolic Mqf188 Osmo 284 mOsmo 08/16/2017 %Hba1C Qtp359 % HbA1c 44308-0 12.5 % 08/16/2017 %Hba1C Lgc807 Gluc Ave 312 mg/dL 08/16/2017 Urine Culture Ucult Complete NO Growth Day 2 06/23/2017 Urine Culture Ucult Preliminary NO Growth Day 1 06/23/2017 C RAP A SC [id number] Strep A Negative 06/08/2017 %Hba1C Zer410 % HbA1c 64986-6 9.5 % 05/04/2017 %Hba1C Ygw420 Gluc Ave 226 mg/dL 05/04/2017 Tsh Ord6 [...] 31.7 pg 05/04/2017 Cbc With Differential Ord2 [place]% 8.5 % 05/04/2017 Cbc With Differential Ord2 [...] 2.48 K/ul 05/04/2017 Cbc With Differential Ord2 [place] ABS# 0.5 K/ul 05/04/2017 Cbc With Differential Ord2 Eos ABS# 0.1 K/ul 05/04/2017 Cbc With Differential Ord2 Baso ABS# 0.0 K/ul 05/04/2017 Comp Metabolic Jof379 NA 135 mEq/L 05/04/2017 Comp Metabolic Zwf748 K 4.2 mEq/L 05/04/2017 Comp Metabolic Uju809 CL 99 mEq/L 05/04/2017 Comp Metabolic Gqg349 CO2 26.0 mEq/L 05/04/2017 Comp Metabolic Tla710 ANION GAP 14 05/04/2017 Comp Metabolic Vua729 GLUCOSE 277 mg/dL 05/04/2017 Comp Metabolic Wel443 Creat 0.9 mg/dL 05/04/2017 Comp Metabolic Tjo142 eGFR 96 ml/min/1.73m2 05/04/2017 Comp Metabolic Lwl672 BUN 23 mg/dL 05/04/2017 Comp Metabolic Xnq216 B/C Ratio 26.1 Ratio 05/04/2017 Comp Metabolic Fzr482 CALCIUM 8.9 mg/dL 05/04/2017 Comp Metabolic Ory391 ALK PHOS 81 U/L 05/04/2017 Comp Metabolic Svl248 AST(SGOT) 21 U/L 05/04/2017 Comp Metabolic Czw951 ALT(SGPT) 27 U/L 05/04/2017 Comp Metabolic Ikc038 BILI T 1.2 mg/dL 05/04/2017 Comp Metabolic Jdq197 ALBUMIN 4.0 g/dL 05/04/2017 Comp Metabolic Snn896 TPRO 6.7 g/dL 05/04/2017 Comp Metabolic Hpa241 GLOB 2.7 g/dL 05/04/2017 Comp Metabolic Vgo380 A/G Ratio 1.5 Ratio 05/04/2017 Comp Metabolic Uwy091 Osmo 284 mOsmo 05/04/2017 C A/B FLU 3493350 Influenza A Scr Negative 02/16/2017 C A/B FLU 4937126 Influenza B Scr Positive 02/16/2017 Cbc With [...] 39.7 % 05/23/2016 Cbc With Differential Ord2 [place]% 8.8 % 05/23/2016 Cbc With Differential Ord2 [...] 2.07 K/ul 05/23/2016 Cbc With Differential Ord2 [place] ABS# 0.5 K/ul 05/23/2016 Cbc With Differential Ord2 Eos ABS# 0.1 K/ul 05/23/2016 Cbc With Differential Ord2 Baso ABS# 0.0 K/ul 05/23/2016 Lipid Ord30 CHOL 397 mg/dL 05/17/2016 Lipid Ord30 HDL 48.0 mg/dl 05/17/2016 Lipid Ord30 TRIG 578 mg/dL 05/17/2016 Lipid Ord30 LDL Unable to calculate Due to elevated triglycerides mg/dL 05/17/2016 Lipid Ord30 C/HDL 8.3 Ratio 05/17/2016 %Hba1C Okd173 % HbA1c 32876-6 12.4 % 05/16/2016 %Hba1C Uwn841 Gluc Ave 309 mg/dL 05/16/2016 Cbc With [...] 87.4 fl 05/15/2016 Cbc With Differential Ord2 [place]% 7.8 % 05/15/2016 Cbc With Differential Ord2 [...] 2.04 K/ul 05/15/2016 Cbc With Differential Ord2 [place] ABS# 0.5 K/ul 05/15/2016 Cbc With Differential Ord2 Eos ABS# 0.1 K/ul 05/15/2016 Cbc With Differential Ord2 Baso ABS# 0.0 K/ul 05/15/2016 Tsh Ord6 hTSH II 1.70 uIU/mL 05/15/2016 Comp Metabolic Ptd401 NA 135 mEq/L 05/15/2016 Comp Metabolic Ipt262 K 3.9 mEq/L 05/15/2016 Comp Metabolic Qpk182 CL 96 mEq/L 05/15/2016 Comp Metabolic Haq276 CO2 27.0 mEq/L 05/15/2016 Comp Metabolic Dpn382 ANION GAP 16 05/15/2016 Comp Metabolic Ewh634 GLUCOSE 183 mg/dL 05/15/2016 Comp Metabolic Ddd149 Creat 1.1 mg/dL 05/15/2016 Comp Metabolic Aks444 eGFR 71 ml/min/1.73m2 05/15/2016 Comp Metabolic Xzo209 BUN 17 mg/dL 05/15/2016 Comp Metabolic Gei511 B/C Ratio 14.9 Ratio 05/15/2016 Comp Metabolic Kgb605 CALCIUM 9.6 mg/dL 05/15/2016 Comp Metabolic Okl234 ALK PHOS 100 U/L 05/15/2016 Comp Metabolic Jvx252 AST(SGOT) 20 U/L 05/15/2016 Comp Metabolic Mpa290 ALT(SGPT) 20 U/L 05/15/2016 Comp Metabolic Bpl968 BILI T 1.3 mg/dL 05/15/2016 Comp Metabolic Upf087 ALBUMIN 4.6 g/dL 05/15/2016 Comp Metabolic Inw441 TPRO 8.1 g/dL 05/15/2016 Comp Metabolic Vpo455 GLOB 3.5 g/dL 05/15/2016 Comp Metabolic Oto650 A/G Ratio 1.3 Ratio 05/15/2016 Comp Metabolic Ywx527 Osmo 276 mOsmo 05/15/2016 Review of Systems [...] clear 09/09/2018 None Full Exam - General 1995 Constitutional general appearance Overall: well developed 07/22/2018 [...] of skin Location: face 05/04/2017 patch left christianity Full Exam - General 1994 Constitutional general [...] walking: ataxic rhythm 01/29/2017 decreased strength RUE/RLE 35, LUE /LLE 5/ Full Exam - General 1994 Neurologic mental [...] CPT-4: J3301 09/30/2018 THER/PROPH/DIAG INJ SC/IM CPT-4: 20101 09/11/2018 TRIAMCINOLONE ACET INJ NOS CPT-4: J3301 09/11/2018 IMMUNIZATION ADMIN CPT -4: 76062 07/22/2018 FLU VAC NO PRSV 4 MENA 3 YRS+ CPT-4: 30333 07/22/2018 TRIAMCINOLONE ACET INJ NOS CPT-4: J3301 06/28/2018 KETOROLAC TROMETHAMINE INJ CPT-4: J1885 05/02/2018 FLU VAC NO PRSV 4 MENA 3 YRS+ CPT-4: 24036 08/16/2017 IMMUNIZATION ADMIN CPT -4: 37868 08/16/2017 URINALYSIS NONAUTO W/O SCOPE CPT-4: 01809 06/21/2017 TRIAMCINOLONE ACET INJ NOS CPT-4: J3301 05/04/2017 THER/PROPH/DIAG INJ SC/IM CPT-4: 37359 05/04/2017 TRIAMCINOLONE ACET INJ NOS CPT-4: J3301 02/16/2017 ROCEPHIN, PER 250 MG CPT-4: J0696 02/16/2017 ROCEPHIN, PER 250 MG CPT-4: J0696 10/06/2016 URINALYSIS NONAUTO W/O SCOPE CPT-4: 06217 07/18/2016 TRIAMCINOLONE ACET INJ NOS CPT-4: J3301 01/20/2016 Vital Signs Date Vital 10/30/2018 Blood Pressure 1: 130/72 Code : 8480-6 BMI: 33.3 Code : 59974-5 Heart Rate 1 : 83 bpm Height: 6'2" SpO2: 95% Temperature: 36.5 (C) / 97.7 (F) Weight: 259 lbs 10/24/2018 Blood Pressure 1: 130/70 Code : 8480-6 Heart Rate 1: 95 bpm Height: 6'2" SpO2: 96% 10/23/2018 Blood Pressure 1: 100/70 Code : 8480-6 Blood Pressure 2: 102/70 Code: 8480-6 BMI: 33.3 Code: 62877-0 Heart Rate 1: 106 bpm Height: 6'2" SpO2: 98% Weight: 259 lbs 10/21/2018 Blood Pressure 1: 140/90 Code : 8480-6 BMI: 32.9 Code : 76144-2 Heart Rate 1 : 96 bpm Height: 6'2" SpO2: 92% Weight: 256 lbs 10/17/2018 Blood Pressure 1: 110/68 Code : 8480-6 BMI: 32.9 Code : 61215-6 Heart Rate 1 : 82 bpm Height: 6'2" SpO2: 97% Weight: 256 lbs 10/14/2018 Blood Pressure 1: 124/70 Code : 8480-6 BMI: 33.6 Code : 51214-8 Heart Rate 1 : 76 bpm Height: 6'2" SpO2: 99% Temperature: 36.3 (C) / 97.3 (F) Weight: 262 lbs 09/30/2018 Blood Pressure 1: 138/82 Code : 8480-6 BMI: 33.6 Code : 72213-0 Heart Rate 1 : 82 bpm Height: 6'2" SpO2: 98% Temperature: 36.3 (C) / 97.3 (F) Weight: 262 lbs 09/09/2018 Blood Pressure 1: 140/80 Code : 8480-6 BMI: 33.0 Code : 56106-8 Heart Rate 1 : 97 bpm Height: 6'2" SpO2: 93% Temperature: 36.8 (C) / 98.2 (F) Weight: 257 lbs 07/22/2018 Blood Pressure 1: 120/78 Code : 8480-6 BMI: 31.6 Code : 98134-6 Heart Rate 1 : 87 bpm Height: 6'2" SpO2: 98% Weight: 246 lbs 07/16/2018 Blood Pressure 1: 132/74 Code : 8480-6 BMI: 31.2 Code : 82270-1 Heart Rate 1 : 90 bpm Height: 6'2" SpO2: 96% Weight: 243 lbs 07/01/2018 Blood Pressure 1: 142/82 Code : 8480-6 BMI: 31.8 Code : 44147-5 Heart Rate 1 : 88 bpm Height: 6'2" SpO2: 98% Weight: 248 lbs 06/28/2018 Blood Pressure 1: 132/76 Code : 8480-6 BMI: 31.8 Code : 59527-1 Heart Rate 1 : 107 bpm Height: 6'2" SpO2: 98% Temperature: 37.9 (C) / 100.3 (F) Weight: 248 lbs 06/18/2018 Blood Pressure 1: 138/82 Code : 8480-6 BMI: 31.8 Code : 69999-3 Heart Rate 1 : 82 bpm Height: 6'2" SpO2: 97% Weight: 248 lbs 06/04/2018 Blood Pressure 1: 128/84 Code : 8480-6 BMI: 33.9 Code : 74784-6 Heart Rate 1 : 86 bpm Height: 6'2" SpO2: 95% Weight: 264 lbs 05/13/2018 Blood Pressure 1: 130/80 Code : 8480-6 BMI: 31.1 Code : 68863-5 Heart Rate 1 : 100 bpm Height: 6'2" SpO2: 94% Weight: 242 lbs 05/02/2018 Blood Pressure 1: 134/84 Code : 8480-6 BMI: 31.2 Code : 65012-6 Heart Rate 1 : 93 bpm Height: 6'2" SpO2: 98% Weight: 243 lbs 04/29/2018 Blood Pressure 1: 142/88 Code : 8480-6 BMI: 31.6 Code : 77374-4 Heart Rate 1 : 96 bpm Height: 6'2" SpO2: 96% Temperature: 36.7 (C) / 98.1 (F) Weight: 246 lbs 03/13/2018 Blood Pressure 1: 120/76 Code : 8480-6 BMI: 30.9 Code : 33404-7 Heart Rate 1 : 112 bpm Height: 6'2" SpO2: 97% Weight: 241 lbs 03/07/2018 Blood Pressure 1: 108/78 Code : 8480-6 BMI: 30.0 Code : 04430-9 Heart Rate 1 : 87 bpm Height: 6'2" SpO2: 98% Weight: 234 lbs 02/28/2018 Blood Pressure 1: 106/74 Code : 8480-6 BMI: 30.0 Code : 52717-2 Heart Rate 1 : 101 bpm Height: 6'2" SpO2: 98% Temperature: 36.4 (C) / 97.5 (F) Weight: 234 lbs 02/13/2018 Blood Pressure 1: 11078 Code : 8480-6 BMI: 30.0 Code : 94281-1 Heart Rate 1 : 106 bpm Height: 6'2" SpO2: 98% Weight: 234 lbs 01/29/2018 Blood Pressure 1: 106/68 Code : 8480-6 BMI: 30.0 Code : 51989-8 Heart Rate 1 : 108 bpm Height: 6'2" SpO2: 98% Weight: 234 lbs 08/27/2017 Blood Pressure 1: 134/76 Code : 8480-6 Heart Rate 1: 98 bpm Height: SpO2: 97% Weight: 08/16/2017 Blood Pressure 1: 128/80 Code : 8480-6 BMI: 32.0 Code : 97805-8 Heart Rate 1 : 94 bpm Height: [...] Code : 8480-6 BMI: 31.8 Code : 08305-9 Heart Rate 1 : 102 bpm Height: [...] Code : 8480-6 BMI: 31.8 Code : 28114-3 Heart Rate 1 : 85 bpm Height: 6'2" SpO2: 96% Temperature: 36.6 (C) / 97.9 (F) Weight: 248 lbs 02/12/2017 Blood Pressure 1: 126/76 Code : 8480-6 BMI: 31.8 Code : 53639-7 Heart Rate 1 : 106 bpm Height: 6'2" SpO2: 91% Weight: 248 lbs 02/05/2017 Blood Pressure 1: 146/86 Code : 8480-6 BMI: 31.9 Code : 72161-7 Heart Rate 1 : 98 bpm Height: 6'2" SpO2: 87% Temperature: 36.7 (C) / 98.0 (F) Weight: 248 lbs 8 oz 01/29/2017 Blood Pressure 1: 132/84 Code : 8480-6 BMI: 31.8 Code : 44225-6 Heart Rate 1 : 83 bpm Height: 6'2" SpO2: 97% Weight: 248 lbs 10/13/2016 Blood Pressure 1: 128/72 Code : 8480-6 Heart Rate 1: 86 bpm SpO2: 94% 10/09/2016 Blood Pressure 1: 128/68 Code : 8480-6 Heart Rate 1: 136 bpm SpO2: 94% Temperature: 36.8 (C) / 98.2 (F) 10/06/2016 Blood Pressure 1: 140/80 Code : 8480-6 BMI: 32.1 Code : 88352-3 Heart Rate 1 : 94 bpm Height: 6'2" SpO2: 95% Weight: 250 lbs 07/18/2016 Blood Pressure 1: 128/86 Code : 8480-6 BMI: 32.1 Code : 65134-5 Heart Rate 1 : 89 bpm Height: 6'2" SpO2: 96% Weight: 250 lbs 06/22/2016 Blood Pressure 1: 118/70 Code : 8480-6 BMI: 32.1 Code : 15732-5 Heart Rate 1 : 70 bpm Height: 6'2" SpO2: 97% Weight: 250 lbs 05/23/2016 Blood Pressure 1: 128/80 Code : 8480-6 BMI: 32.1 Code : 96119-7 Heart Rate 1 : 76 bpm Height: 6'2" SpO2: 98% Weight: 250 lbs 05/15/2016 Blood Pressure 1: 110/90 Code : 8480-6 BMI: 31.3 Code : 07415-9 Heart Rate 1 : 111 bpm Height: 6'2" SpO2: 97% Temperature: 36.6 (C) / 97.8 (F) Weight: 244 lbs 01/20/2016 Blood Pressure 1: 128/76 Code : 8480-6 BMI: 33.0 Code : 98356-6 Heart Rate 1 : 103 bpm Height: [...] data Encounters Encounter Performer Location Codes Date ([id number]) 17613 EST. PATIENT, LEVEL III Diagnosis: Pneumonia due to other Gram-negative bacteria[ICD10: J15.6] Diagnosis: Cough[ICD10: R05] Melida Ha MD, [facility] CPT-4: 80103 10/30/2018 ([id number]) 18714 EST. PATIENT, LEVEL II Diagnosis: Pain in joints of right hand[ICD10: M25.541] Diagnosis: Trigger finger, right middle finger[ICD10: M65.331] Marcela Ha MD, [facility] CPT-4: 10760 10/24/2018 ([id number]) 78838 EST. PATIENT, LEVEL IV Diagnosis: Essential (primary) hypertension[ICD10: I10] Diagnosis: Type 2 diabetes mellitus with foot ulcer[ICD10: E11.621] Melida Ha MD, [facility] CPT-4: 94558 10/23/2018 ([id number]) 07625 EST. PATIENT, LEVEL III Diagnosis: Cellulitis of right finger[ICD10: L03.011] Diagnosis: Type 2 diabetes mellitus with foot ulcer[ICD10: E11.621] Diagnosis: Pain in right hand[ICD10: M79.641] Melida Ha MD, [facility] CPT-4: 59809 10/21/2018 42845 EST. PATIENT, LEVEL III Diagnosis: Spontaneous ecchymoses[ICD10: R23.3] Diagnosis: Cellulitis of right lower limb[ICD10: L03.115] Diagnosis: Cellulitis of left lower limb[ICD10: L03.116] Madeline Ha MD, [facility] CPT-4: 40480 10/17/2018 ([id number]) 84724 EST. PATIENT, LEVEL III Diagnosis: Cough[ICD10: R05] Diagnosis: Acute bronchitis, unspecified[ICD10: J20.9] Melida Ha MD, [facility] CPT-4: 23182 10/14/2018 [id number] EST. PATIENT, LEVEL III Diagnosis: Acute laryngopharyngitis[ICD10: J06.0] Diagnosis: Cough[ICD10: R05] Madeline Ha MD, [facility] CPT-4: 29404 09/30/2018 ([id number]) 77700 EST. PATIENT, LEVEL III Diagnosis: Acute recurrent maxillary sinusitis[ICD10: J01.01] Diagnosis: Cough[ICD10: R05] Diagnosis: Type 2 diabetes mellitus with hyperglycemia[ICD10: E11.65] Marcela Ha MD, [facility] CPT-4: 60725 09/09/2018 ([id number]) 43769 EST. PATIENT, LEVEL IV Diagnosis: Essential (primary) hypertension[ICD10: I10] Diagnosis: Mixed hyperlipidemia[ICD10: E78.2] Diagnosis: Bipolar disorder, current episode depressed, moderate[ICD10: F31.32] Diagnosis: Type 2 diabetes mellitus with other specified complication[ICD10: E11.69] Melida Ha MD, [facility] CPT-4: 48356 2017 ([id number]) 54107 EST. PATIENT, LEVEL III Diagnosis: Insomnia due to medical condition[ICD10: G47.01] Marcela Ha MD, [facility] CPT-4: 68574 07/16/2018 ([id number]) Miscellaneous no charge Diagnosis: Cough[ICD10: R05] Madeline Ha MD, [facility] CPT-4: 63739 07/01/2018 78514 EST. PATIENT, LEVEL III Diagnosis: Cough[ICD10: R05] Diagnosis: Acute laryngopharyngitis[ICD10: J06.0] Diagnosis: Other allergic rhinitis[ICD10: J30.89] Madeline Ha MD, [facility] CPT-4: 35291 06/28/2018 ([id number]) 43320 EST. PATIENT, LEVEL IV Diagnosis: Type 2 diabetes mellitus with hyperglycemia[ICD10: E11.65] Diagnosis: Essential (primary) hypertension[ICD10: I10] Melida Ha MD, [facility] CPT-4: 02736 06/18/2018 ([id number]) 96910 EST. PATIENT, LEVEL IV Diagnosis: Type 2 diabetes mellitus with hyperglycemia[ICD10: E11.65] Diagnosis: Essential (primary) hypertension[ICD10: I10] Diagnosis: Localized edema[ICD10: R60.0] Melida Ha MD, [facility] CPT- 4: 01609 06/04/2018 ([id number]) 67846 EST. PATIENT, LEVEL III Diagnosis: Type 2 diabetes mellitus with hyperglycemia[ICD10: E11.65] Diagnosis: Myalgia[ICD10: M79.1] Diagnosis: Pain in right hip[ICD10: M25.551] Diagnosis: Pain in left hip[ICD10: M25.552] Marcela Ha MD, [facility] CPT-4: 52696 05/13/2018 ([id number]) 61562 EST. PATIENT, LEVEL III Diagnosis: Myalgia[ICD10: M79.1] Diagnosis: Pain in right hip[ICD10: M25.551] Diagnosis: Pain in left hip[ICD10: M25.552] Marcela Ha MD, [facility] CPT-4: 96015 05/02/2018 ([id number]) 73722 EST. PATIENT, LEVEL IV Diagnosis: Essential (primary) hypertension[ICD10: I10] Diagnosis: Type 2 diabetes mellitus with hyperglycemia[ICD10: E11.65] Diagnosis: Major depressive disorder, single episode, moderate[ICD10: F32.1] Diagnosis: Myalgia[ICD10: M79.1] Marcela Ha MD, [facility] CPT-4: 77419 04/29/2018 ([id number]) 32386 EST. PATIENT, LEVEL IV Diagnosis: Type 2 diabetes mellitus with hyperglycemia[ICD10: E11.65] Diagnosis: Essential (primary) hypertension[ICD10: I10] Diagnosis: Major depressive disorder, single episode, moderate[ICD10: F32.1] Melida Ha MD, [facility] CPT-4: 30628 03/13/2018 ([id number]) 75067 EST. PATIENT, LEVEL III Diagnosis: Type 2 diabetes mellitus with hyperglycemia[ICD10: E11.65] Diagnosis: Bipolar disorder, current episode depressed, moderate[ICD10: F31.32] Diagnosis: Orthostatic hypotension[ICD10: I95.1] Marcela Ha MD, [facility] CPT-4: 19790 03/07/2018 ([id number]) 30289 EST. PATIENT, LEVEL IV Diagnosis: Type 2 diabetes mellitus with hyperglycemia[ICD10: E11.65] Diagnosis: Major depressive disorder, single episode, moderate[ICD10: F32.1] Diagnosis: Orthostatic hypotension[ICD10: I95.1] Diagnosis: Other fatigue[ICD10: R53.83] Marcela Ha MD, [facility] CPT-4: 78001 02/28/2018 75956 EST. PATIENT, LEVEL IV Diagnosis: Other fatigue[ICD10: R53.83] Diagnosis: Other malaise[ICD10: R53.81] Diagnosis: Gastro-esophageal reflux disease without esophagitis[ICD10: K21.9] Madeline Ha MD, [facility] CPT-4: 02486 02/13/2018 ([id number]) 31046 EST. PATIENT, LEVEL IV Diagnosis: Type 2 diabetes mellitus with foot ulcer[ICD10: E11.621] Diagnosis: Essential (primary) hypertension[ICD10: I10] Diagnosis: Gastro-esophageal reflux disease without esophagitis[ICD10: K21.9] Marcela Ha MD, [facility] CPT-4: 21763 01/29/2018 58887 EST. PATIENT, LEVEL III Diagnosis: Other malaise[ICD10: R53.81] Diagnosis: Other fatigue[ICD10: R53.83] Diagnosis: Pain in right shoulder[ICD10: M25.511] Diagnosis: Pain in left shoulder[ICD10: M25.512] Madeline Ha MD, [facility] CPT-4: 32462 08/27/2017 ([id number]) 28761 EST. PATIENT, LEVEL IV Diagnosis: Essential (primary) hypertension[ICD10: I10] Diagnosis: Type 2 diabetes mellitus with hyperglycemia[ICD10: E11.65] Diagnosis: VACCIN FOR INFLUENZA[ICD10: Z23] Melida Ha MD, [facility] CPT-4: 43622 08/16/2017 92558 EST. PATIENT, LEVEL III Diagnosis: Zoster without complications[ICD10: B02.9] Madeline Ha MD, [facility] CPT-4: 97209 07/26/2017 ([id number]) 26646 EST. PATIENT, LEVEL III Diagnosis: Cellulitis of right lower limb[ICD10: L03.115] Marcela Ha MD, [facility] CPT-4: 11554 07/03/2017 86779 EST. PATIENT, LEVEL II Diagnosis: Laceration without foreign body of left forearm, initial encounter[ ICD10: S51.812A] Marcela Ha MD, [facility] CPT-4: 05985 06/29/2017 ([id number]) 82213 EST. PATIENT, LEVEL III Diagnosis: Cellulitis of right lower limb[ICD10: L03.115] Diagnosis: Type 2 diabetes mellitus with foot ulcer[ICD10: E11.621] Marcela Ha MD [facility] CPT-4: 15689 06/18/2017 ([id number]) 74736 EST. PATIENT, LEVEL IV Diagnosis: Cellulitis of right lower limb[ICD10: L03.115] Diagnosis: Acute laryngopharyngitis[ICD10: J06.0] Diagnosis: Gastro-esophageal reflux disease without esophagitis[ICD10: K21.9] Marcela Ha MD [facility] CPT-4: 24029 06/07/2017 ([id number]) 23590 EST. PATIENT, LEVEL III Diagnosis: Type 2 diabetes mellitus with hyperglycemia[ICD10: E11.65] Diagnosis: Insect bite (nonvenomous) of abdominal wall, initial encounter[ICD10 : S30.861A] Marcela Ha MD [facility] CPT-4: 43935 05/17/2017 ([id number]) 44603 EST. PATIENT, LEVEL III Diagnosis: Allergic contact dermatitis due to plants, except food[ICD10: L23.7] Melida Ha MD [facility] CPT-4: 83451 05/04/2017 ([id number]) 43868 EST. PATIENT, LEVEL III Diagnosis: Essential (primary) hypertension[ICD10: I10] Marcela Ha MD [facility] CPT-4: 21050 03/15/2017 ([id number]) 41861 EST. PATIENT, LEVEL III Diagnosis: Cough[ICD10: R05] Diagnosis: Essential (primary) hypertension[ICD10: I10] Marcela Ha MD [facility] CPT-4: 05307 03/01/2017 ([id number]) 79260 EST. PATIENT, LEVEL III Diagnosis: Cough[ICD10: R05] Diagnosis: Nasal congestion[ICD10: R09.81] Diagnosis: Acute recurrent maxillary sinusitis[ICD10: J01.01] Marcela Ha MD [facility] CPT-4: 97377 02/16/2017 ([id number]) 60123 EST. PATIENT, LEVEL III Diagnosis: Type 2 diabetes mellitus with hyperglycemia[ICD10: E11.65] Marcela Ha MD [facility] CPT-4: 58820 02/12/2017 ([id number]) 00431 EST. PATIENT, LEVEL IV Diagnosis: Type 2 diabetes mellitus with hyperglycemia[ICD10: E11.65] Diagnosis: Muscle weakness (generalized)[ICD10: M62.81] Diagnosis: Disorientation, unspecified[ICD10: R41.0] Marcela Ha MD, [facility] CPT-4: 38143 02/05/2017 ([id number]) Patient admitted to the hospital from clinic (NO CHARGE) Diagnosis: Type 2 diabetes mellitus with hyperglycemia[ICD10: E11.65] Diagnosis: Disorientation, unspecified[ICD10: R41.0] Diagnosis: Muscle weakness (generalized)[ICD10: M62.81] Marcela Ha MD, [facility] CPT-4: 83443J 01/29/2017 ([id number]) Miscellaneous no charge Diagnosis: Cellulitis of right lower limb[ICD10: L03.115] Marcela Ha MD, [facility] CPT-4: 04724 10/13/2016 ([id number]) Miscellaneous no charge Diagnosis: Type 2 diabetes mellitus with foot ulcer[ICD10: E11.621] Diagnosis: Pain in right foot[ICD10: M79.671] Marcela Ha MD, [facility] CPT-4: 00424 10/09/2016 42939 EST. PATIENT, LEVEL II Diagnosis: Cellulitis of right lower limb[ICD10: L03.115] Marcela Ha MD, [facility] CPT-4: 65844 10/06/2016 ([id number]) 27550 EST. PATIENT, LEVEL IV Diagnosis: Low back pain[ICD10: M54.5] Diagnosis: Other deformities of toe(s) (acquired), left foot[ICD10: M20.5X2] Diagnosis: Type 2 diabetes mellitus with foot ulcer[ICD10: E11.621] [facility] CPT-4: 61392 07/18/2016 ([id number]) 32752 EST. PATIENT, LEVEL III Diagnosis: Type 2 diabetes mellitus with hyperglycemia[ICD10: E11.65] Marcela Ha MD, [facility] CPT-4: 04576 06/22/2016 ([id number]) 45059 EST. PATIENT, LEVEL IV Diagnosis: Type 2 diabetes mellitus with hyperglycemia[ICD10: E11.65] Diagnosis: Mixed hyperlipidemia[ICD10: E78.2] Diagnosis: Other hemoglobinopathies[ICD10: D58.2] Marcela Ha MD, [facility] CPT-4: 27766 05/23/2016 ([id number]) 23303 EST. PATIENT, LEVEL IV Diagnosis: Type 2 diabetes mellitus with other specified complication[ICD10: E11.69] Diagnosis: Dehydration[ICD10: E86.0] [facility] CPT-4: 24041 05/15/2016 ([id number]) OFFICE VISIT, NEW - LEVEL 3 Diagnosis: Allergic contact dermatitis due to plants, except food[ICD10: L23.7] [facility] CPT-4: 14423 01/20/2016 Plan of Care Planned Activity Notes Codes Status Date Referral: Niko Mantilla Referral Completed 11/04/2018 Visit Plan: Pneumonia, cough - recent diagnosis of Moraxella Cattharalis - with sensitivity to levaquin - will give 2 wks of levaquin since he had improvement but no full resolution of symptoms. 10/30/2018 Appointment: Melida Ha [facility]Ptel[facility] [facility] appointments only in [...] for evaluation 10/24/2018 Appointment: Marcela Oshea WPtel: [phone] (30 min) Complex 10/24/2018 Patient Education: Patient Medication Summary Completed 10/24/2018 Care Plan: Referral Order SNOMED-CT : [id number] Pending 10/24/2018 Visit Plan: Hypotension - discussed [...] less controlled. 10/23/2018 Appointment: Melida Ha WPtel: [facility] (15 min) Moderate 10/23/2018 Patient [...] this afternoon 10/21/2018 Appointment: Marcela Oshea WPtel: [address] [place] [address] (30 min) Complex 10/21/2018 Patient Education: Patient [...] warmth, discharge. 10/17/2018 Appointment: Madeline Kennedy WPtel: [address] [place] [address] (15 min) Moderate 10/17/2018 Patient Education: Patient [...] acutely worsen. 10/14/2018 Appointment: Marcela Oshea WPtel: [facility]5 [phone] (15 min) Moderate 10/14/2018 Patient Education: Patient Medication Summary Completed 10/14/2018 Care Plan: CHEST X-RAY 2VW FRONTAL&LATL LOINC : 93268-3 Pending 10/14/2018 Visit Plan: URI - Pt [...] allergy spray. 09/30/2018 Appointment: Madeline Kennedy WPtel: [facility] (15 min) Moderate 09/30/2018 Patient [...] Hgb A1C 09/09/2018 Appointment: Marcela Oshea WPtel: [phone] (15 min) Moderate 09/09/2018 Patient Education: Patient Medication Summary Completed 09/09/2018 Patient Education: Patient Medication Summary Completed 09/06/2018 Patient Education: Cholesterol Management Completed 09/06/2018 Care Plan: Comp Metabolic Pending 09/06/2018 Care Plan: Cbc With Differential Pending 09/06/2018 Care Plan: %Hba1C LOINC : 21911-3 Pending 09/06/2018 Care Plan: Tsh Pending 09/06/2018 Care Plan: Lipid Pending 09/06/2018 Appointment: Marcela Oshea WPtel: [address] [place], [place] [phone] (15 min) Moderate 08/26/2018 Appointment: Marcela Oshea WPtel: [address] [place], [place] [phone] (15 min) Moderate 08/23/2018 Visit Plan: Hypertension [...] clinic. 07/22/2018 Appointment: Melida Ha WPtel: [facility] (15 min) Moderate 07/22/2018 Patient Education: Patient [...] time insomnia. 07/16/2018 Appointment: Marcela Oshea WPtel: [phone] [place] (30 min) Complex 07/16/2018 Patient Education: Patient Medication Summary Completed 07/16/2018 Visit Plan: cough - improved - notify clinic if symptoms do not completely resolve, or with any questions or concerns. 07/01/2018 Appointment: Madeline Kennedy WPtel: [facility] [place] (15 min) Moderate 07/01/2018 Patient Education: [...] allergy spray. 06/28/2018 Appointment: Madeline Kennedy WPtel: [facility] [address] (15 min) Moderate 06/28/2018 Patient Education: [...] at home. 06/18/2018 Appointment: Melida Ha WPtel: [facility] (15 min) Moderate 06/18/2018 Patient Education: Patient [...] 06/04/2018 Appointment: [facility]Ptel[facility] [phone] [facility] (15 min) Moderate 06/04/2018 Patient [...] allow for greater blood glucose control. Joint ntdn-bdpnmxws-gguqskl- symptoms have improved -stop meloxicam due to upset stomach-call if symptoms return 05/13/2018 Appointment: Marcela Oshea WPtel: [phone] [phone] (30 min) Complex 05/13/2018 Patient Education: Patient Medication Summary Completed 05/13/2018 Visit Plan: Bilateral hip lsdy-pgcphyzo-sstxkdb IM injection administered today for c/o continued myalgia/arthralgia. Patient to start taking Meloxicam 15mg PO daily. Advised to return to clinic if symptoms do not improve. 05/02/2018 Appointment: Marcela Oshea WPtel: [phone] [phone] (30 min) Complex 05/02/2018 Patient [...] readings at home. Diabetes Mellitus -check labs Yfhablmo-airlizf-qgqb bite-rx for doxycycline-follow up in 2 weeks 04/29/2018 Appointment: Marcela Oshea WPtel: [phone] [phone] (15 min) Moderate 04/29/2018 Patient Education: Patient Medication Summary Completed 04/29/2018 Appointment: Melida Ha WPtel: [address] [facility] (15 min) Moderate 04/15/2018 Appointment: Marcela Oshea [...] cymbalta 03/13/2018 Appointment: [facility]el[phone] [facility] (30 min) Complex 03/13/2018 Patient Education: Patient Medication Summary Completed 03/13/2018 Visit Plan: DM-continue same medications-monitor blood sugars routinely as directed -rx for new glucometer and test strips provided Bipolar-currently depressed-patient start on vraylar-follow up in 2 weeks, sooner if needed. Patient and verbalied understanding of plan. Hypotension- stay off losartan 03/07/2018 Appointment: Marcela Oshea WPtel: [phone] [phone] [place] (30 min) Complex 03/07/2018 Patient Education: Patient Medication Summary Completed 03/07/2018 Appointment: Melida Ha WPtel: [phone] [facility] (15 min) Moderate 03/04/2018 Visit Plan: Hypotension-continue [...] patient. 02/28/2018 Appointment: Marcela Oshea WPtel: [phone] [phone] [place] (30 min) Complex 02/28/2018 Patient [...] improving. 02/13/2018 Appointment: Madeline Kennedy WPtel: [phone] [facility] [place] (15 min) Moderate 02/13/2018 Patient Education: Patient Medication Summary Completed 02/13/2018 Referral: [place] Patient informed. Referral info faxed. Completed Visit Plan: DM-weight loss-not checking blood sugars- patient sent for labs today HTN-low iydvu-yvmghgu-qrnqp labs Callus of foot and fissue of [...] improving. 01/29/2018 Appointment: Marcela Oshea WPtel: [phone] [place] (30 min) Complex 01/29/2018 Patient Education: Patient Medication Summary Completed 01/29/2018 Care Plan: Comp Metabolic Cancelled 01/29/2018 Care Plan: Cbc With Differential Cancelled 01/29/2018 Care Plan: %Hba1C LOINC : 80789-9 Cancelled 01/29/2018 Care Plan: Referral Order SNOMED-CT : [id number] Cancelled 01/29/2018 Visit Plan: Fatigue, malaise, joint [...] or concerns. 08/27/2017 Appointment: Madeline Kennedy WPtel: [facility] (15 min) Moderate 08/27/2017 Patient Education: [...] today - 08/16/2017 Appointment: Melida Ha WPtel: [facility] (30 min) Complex 08/16/2017 Patient Education: Patient Medication Summary Completed 08/16/2017 Patient Education: Obesity Completed 08/16/2017 Appointment: Madeline Kennedy WPtel: [facility] (30 min) Complex 08/07/2017 Visit [...] contagious. 07/26/2017 Appointment: Madeline Kennedy WPtel: [phone] [facility] (15 min) Moderate 07/26/2017 Patient Education: Patient Medication Summary Completed 07/26/2017 Visit Plan: Cellulitis right foot-cultured today in the office-home health to reapply wound vac--appt with wound care on to evaluate for debridement- 07/03/2017 Appointment: Marcela Oshea WPtel: [address] [place] [address] (30 min) Complex 07/03/2017 Patient Education: Patient Medication Summary Completed 07/03/2017 Visit Plan: Abrasion left arm - Pt was instructed to keep the wound clean, wash with antibacterial soap, use triple antibiotic ointment, call if redness, pustular drainage, or any other acute concerns. 06/29/2017 Appointment: Marcela Oshea WPtel: [address] [place], [place] [phone] (15 min) Moderate 06/29/2017 Patient Education: Patient [...] of plan. 06/18/2017 Appointment: Marcela Oshea WPtel: [address] [place], [place] [phone] (15 min) Moderate 06/18/2017 Patient Education: Patient [...] prilosec 06/07/2017 Appointment: Marcela Oshea WPtel: [phone] [phone] (10 min) Simple 06/07/2017 Patient [...] doxycycline 05/17/2017 Appointment: Marcela Oshea WPtel: [phone] [phone] (30 min) Complex 05/17/2017 Patient Education: [...] if you want blue rosieo called into [facility]. 05/04/2017 Appointment: Marcela Oshea WPtel: [phone] (30 min) Complex 05/04/2017 Patient Education: [...] Cough-resolved 03/15/2017 Appointment: Marcela Oshea WPtel: [phone] [phone] [place] (15 min) Moderate 03/15/2017 Patient Education: Patient Medication Summary Completed 03/15/2017 Appointment: Marcela Oshea WPtel: [address] [place], [place] [phone] (30 min) Complex 03/12/2017 Visit Plan: Feng [...] as discussed 02/16/2017 Appointment: Marcela Oshea WPtel: [address] [place], [place] [phone] (15 min) Moderate 02/16/2017 Patient Education: Patient [...] less controlled. 02/12/2017 Appointment: Marcela Oshea WPtel: [address] [place], [place] [phone] (30 min) Complex 02/12/2017 Patient Education: Patient Medication Summary Completed 02/12/2017 Appointment: Marcela Oshea WPtel: [address] [place], [place] [phone] (30 min) Complex 02/06/2017 Visit Plan: Diabetes [...] will consider 02/05/2017 Appointment: Marcela Oshea WPtel: [phone] (30 min) Complex 02/05/2017 Patient Education: Patient Medication Summary Completed 02/05/2017 Appointment: Marcela Oshea WPtel: [address] [place], [place] [phone] (30 min) Complex 01/30/2017 Visit Plan: Acute confusion-uncontrolled diabetes- chronically noncompliant with treatment and stopped his insulin several months ago-r/o stroke vs DKA-Dr Ha in to evaluate patient-plan to admit for further work up and treatment-patient's called and she transported him to the hospital 01/29/2017 Appointment: Marcela Oshea WPtel: [address] [place], [place] [phone] [place] (30 min) Complex 01/29/2017 Patient Education: Patient Medication Summary Completed 01/29/2017 Patient Education: Obesity Completed 01/29/2017 Visit Plan: Right foot pain-MRI shows foreign body-appt with Dr Grewal for evaluation on Sunday. 10/13/2016 Appointment: Marcela Oshea WPtel: [phone] [place] (15 min) Moderate 10/13/2016 Patient Education: Patient Medication Summary Completed 10/13/2016 Appointment: Marcela Oshea WPtel: [phone] [place] (30 min) Complex 10/12/2016 Visit Plan: Right foot svje-hqwnyqap-jxzpj washer dropped on foot-xray negative but pain continues to increase-recommend MRI of foot for further evaluation-refer to wound care for lesions on right foot, patient has diabetes and history of osteomyelitis-culture obtained today-continue oral abx- follow up in the office on , sooner if needed 10/09/2016 Visit Plan: Right foot kdoz-ecncejrj-zwgae washer dropped on foot-xray negative but pain continues to increase-recommend MRI of foot for further evaluation-refer to wound care for lesions on right foot, patient has diabetes and history of osteomyelitis-culture obtained today-continue oral abx- follow up in the office on , sooner if needed 10/09/2016 Visit Plan: Right foot mims-qhdscmcj-pcikf washer dropped on foot-xray negative but pain continues to increase-recommend MRI of foot for further evaluation-refer to wound care for lesions on right foot, patient has diabetes and history of osteomyelitis-culture obtained today-continue oral abx- follow up in the office on , sooner if needed 10/09/2016 Appointment: Marcela Oshea WPtel: [address] [place] [address] (30 min) Complex 10/09/2016 Patient Education: Patient Medication Summary Completed 10/09/2016 Visit Plan: Cellulitis - continue with oral antibiotics as previously directed, return to clinic as previously directed, call for acute change in symptoms, worsening redness, warmth, discharge. 10/06/2016 Appointment: Marcela Osheatel: [address] [place] [address] (10 min) Simple 10/06/2016 Patient Education: Patient Medication Summary Completed 10/06/2016 Appointment: Marcela Oshea WPtel: [address] [place] [address] (30 min) Complex 08/24/2016 Referral: Sun Glynn Referral Completed 07/21/2016 Visit Plan: Low back pain- history of spinal fusion- patient for xray lumbar spine-RX sent to [facility] and instructed on use-topical voltaren samples provided and instructed on use. Ok to use tylenol as needed as well. The patient is to call the office if the pain is worsening or does not improve. Pressure ulcer left 4th toe-refer to Dr Glynn for evaluation 07/18/2016 Appointment: Marcela Oshea: [phone] (30 min) Complex 07/18/2016 Patient Education: Patient Medication Summary Completed 07/18/2016 Patient Education: Obesity Completed 07/18/2016 Care Plan: Referral Order SNOMED-CT : [id number] Cancelled 07/18/2016 Visit Plan: Diabetes Mellitus - [...] control. 06/22/2016 Appointment: Marcela Oshea WPtel: [phone] [phone] (30 min) Complex 06/22/2016 Patient Education: [...] today 05/23/2016 Appointment: Marcela Oshea WPtel: [phone] [place] [phone] (30 min) Complex 05/23/2016 Patient Education: Patient [...] plan. 05/15/2016 App[facility]ment: [phone] (15 min) Moderate 05/15/2016 Patient Education: Patient [...] Sun Glynn Referral Appointment Requested Instructions Comment sputum culture chest xray levaquin 500mg daily [...] spray in the nasal steroid allergy spray. continue oral antibiotic start using topical antibiotic ointment to scabbed areas and cover with dressing follow up , sooner if needed refer to wound care mri left foot due to increased pain -concern for fracture from injury . Right foot vowc-danfcvkl-unkel washer dropped on foot-xray negative but pain [...] for fracture from injury . Right foot muef-uumfkpbg-xwbno washer dropped on foot-xray negative but pain [...] voltaren gel ulcer left 4th toe-refer to project developer . Low back pain- history of spinal fusion-patient for xray lumbar spine-RX sent to [facility] and instructed on use-topical voltaren samples [...] if you want blue rosieo called into [facility]. REPEAT LABS BEFORE YOUR NEXT [...] extra moisture. Patient verbalized understanding of plan. sputum culture chest xray levaquin 500mg daily . Bronchitis - acute case of bronchitis identified. Pt has been given antibiotics, breathing treatments as appropriate, and pt has been instructed to call if symptoms are not improved, or if symptoms acutely worsen. . Diabetes Mellitus - controlled - [...] may then decrease dose as swelling improves. REPEAT CBC Toujeo 10 units daily . [...] glucose control. Elevated Hgb-check CBC today . Mild ecchymosis with faint erythema - pt is to continue his levaquin that was previously prescribed - The patient was instructed in appropriate wound care. The patient was instructed to use the antibiotic as per RX. The patient is to call for any change in symptoms, increase in size of the lesion, increase in pain, worsening redness, warmth, discharge. decrease novolog to 8 units at meals. [...] Flu shot given today in clinic. . Right hand-joint pain and swelling -negative [...] change in blood pressure readings at home. Stop the atorvastatin (lipitor) - start Co [...] if the symptoms are not improving. . Poison Jana - pt is to use topical treatments as directed. Pt is cleanse clothing in hot water with soap, and call if symptoms do not improve or if they worsen. . Right foot pain-MRI shows foreign body-appt with Dr Grewal for evaluation on Sunday. . Bilateral hip auhh-eyygfpmx-yxuakxt IM injection administered today for c/o continued myalgia/arthralgia. Patient to start taking Meloxicam 15mg PO daily. Advised to return to clinic if symptoms do not improve. . DM-weight loss-not checking blood sugars-patient sent for labs today HTN-low nsqrv-wtbieiy-jaszr labs Callus of foot and fissue of [...] physical exam, and the assessment and plan. START CHECKING BLOOD SUGARS . Diabetes [...] readings are starting to become less controlled. Gonbsawbd-cnxmtqdn-qienhrvv to monitor Generalized weakness-refer for PT-patient refuses [...] allow for greater blood glucose control. Joint owmn-skxrodko-phikbln-symptoms have improved -stop meloxicam due to upset stomach-call if symptoms return breathing treatments 3 times a day x [...] spray in the nasal steroid allergy spray. culture of right foot strep swab prilosec [...] symptoms GERD-low spice, low fat diet-start prilosec stop the vraylar start on cymbalta 30mg [...] stop Vraylar and start on cymbalta . Acute confusion-uncontrolled diabetes-chronically noncompliant with treatment [...] readings are starting to become less controlled. STOP LISINOPRIL DUE TO COUGH -START LOSARTAN 25MG DAILY . Feng inhibitor induced cough-stop lisinopril-start losartan as directed- monitor symptoms and follow up in 2 weeks-monitor blood pressure at home and call with any questions or concerns. Patient verbalized understanding of plan. steroid shot today flonase and mucinex over [...] spray in the nasal steroid allergy spray. continue oral antibiotic start using topical antibiotic ointment to scabbed areas and cover with dressing follow up , sooner if needed refer to wound care mri left foot due to increased pain -concern for fracture from injury . Right foot evff-byuzvadg-tmqke washer dropped on foot-xray negative but pain continues to increase-recommend MRI of foot for further evaluation-refer to wound care for lesions on right foot, patient has diabetes and history of osteomyelitis-culture obtained today-continue oral abx-follow up in the office on , sooner if needed RECOMMEND PROBIOTICS TWICE DAILY FLU SWAB ROCEPHIN [...] resolve-start augmentin if needed as discussed . Insomnia - Pt has been advised [...] ulcer- patient to see specialist this afternoon doxycycline 100mg twice daily follow up in 2 weeks, sooner if needed . Hypertension - well controlled - continue with current medications, continue with no added salt diet. Pt has been encouraged to exercise daily. The pt has been advised to call the office if there are any acute concerns about change in blood pressure readings at home. Diabetes Mellitus -check labs Vnswreqs-suenamx-qwne bite-rx for doxycycline-follow up in 2 weeks [...] or with any changes, questions, or concerns. STAY OFF LOSARTAN AND CHOLESTEROL MEDICATION FOR NOW . DM- continue same medications-monitor blood sugars routinely as directed -rx for new glucometer and test strips provided Bipolar-currently depressed-patient start on vraylar-follow up in 2 weeks, sooner if needed. Patient and verbalied understanding of plan. Hypotension-stay off losartan . Cellulitis - continue with oral antibiotics [...]
--- OUTSIDE RECORDS SUMMARY | 2019-01-01 14:58 | XMS REPORT | CCD ---
Author Author Madeline Kennedy MD, [facility] Address [address] [place] [address] Phone Care Team Providers Care Bonsai Tender Name Role Phone PP Unavailable CCM Unavailable Summary Purpose Interface Exchange Insurance Providers Payer name Policy type / Coverage type Covered libertarian ID Effective Begin Date Effective End Date Blue Cross Blue Shield [facility] Blue Cross/Blue Shield [id number] Unknown Family history Father Diagnosis Age At Onset Hyperlipidemia Unknown Heart Attack Unknown Mother Diagnosis Age At Onset Hypertension Unknown Social History Social History Element Codes Description Effective Dates Marital status Unknown Mignon 01/20/2016 Number of children Unknown 4 01/20/2016 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/[address]: 738177981 Never smoker 01/20/[address]: 345041711 Never drinks alcohol 01/20/2016 Allergies, Adverse Reactions, [...] Fill Instructions Levaquin 500 mg tablet RxNorm: 443524 1 Tablet(s) PO daily 11/12/2018 Active valsartan 80 mg tablet RxNorm: 676753 1/2 Tablet(s) PO daily 04/20/2019 Active doxycycline hyclate 100 mg tablet RxNorm: 4982321 1 Tablet(s) PO BID 10/21/2018 10/27/2018 Inactive ketorolac 60 mg/2 mL intramuscular solution RxNorm: 2020591 Milliliter(s) IM 10/21/2018 10/21/2018 Inactive Levaquin 500 mg tablet RxNorm: 841353 1 Tablet(s) PO daily 10/23/2018 Inactive albuterol sulfate 2.5 mg/3 mL (0.083 %) solution for nebulization RxNorm: 783829 3 Milliliter(s) INH UD 10/14/2018 No Stop Date Active Tessalon Perles 100 mg capsule RxNorm: 728731 1-2 Capsule(s) PO TID PRN 10/14/2018 No Stop Date Active Levaquin 500 mg tablet RxNorm: 374505 1 Tablet(s) PO daily 08/201810/16/2018 Inactive Coreg 6.25 mg tablet RxNorm: 264668 TAKE ONE TABLET BY MOUTH TWICE A DAY 09/30/2018 03/28/2019 Active albuterol sulfate 2.5 mg/3 mL (0.083 %) solution for nebulization RxNorm: 928645 3 Milliliter(s) INH UD 09/30/201807/2018 Inactive Kenalog 40 mg/mL suspension for injection RxNorm: 1369454 1.5 Milliliter(s) Inj 09/30/2018 09/30/2018 Inactive Keflex 500 mg capsule RxNorm: 695516 1 Capsule(s) PO TID 201710/03/2018 Inactive prednisone 20 mg tablet RxNorm: 841835 2 Tablet(s) PO daily 09/29/2018 Inactive Kenalog 40 mg/mL suspension for injection RxNorm: 9596619 Milliliter(s) Inj 09/11/2018 09/11/2018 Inactive Zyrtec 10 mg tablet RxNorm: 5711374 1 Tablet(s) PO daily 09/0910/08/2018 Inactive Keflex 500 mg capsule RxNorm: 092829 1 Capsule(s) PO TID 201709/15/2018 Inactive Tresiba FlexTouch U-200 insulin 200 unit/mL (3 mL) subcutaneous pen RxNorm: 5987048 50 Unit(s) SQ daily 08/30/2018 08/29/2018 Inactive please give him 30 day supply Tresiba FlexTouch U-200 insulin 200 unit/mL (3 mL) subcutaneous pen RxNorm: 5373384 50 Unit(s) SQ daily 08/30/2018 09/28/2018 Inactive please give him 30 day supply Novolog Flexpen U-100 Insulin aspart 100 unit/mL subcutaneous RxNorm: 4241008 8 Unit(s) SQ AC 08/13/2018 No Stop Date Active Novolog Flexpen U-100 Insulin aspart 100 unit/mL subcutaneous RxNorm: 6608878 8 Unit(s) SQ AC 07/22/20182017 Inactive this is an update on his medication Novolog Flexpen U-100 Insulin aspart 100 unit/mL subcutaneous RxNorm: 8478383 12 Unit(s) SQ AC 07/05/20182017 Inactive this is an update on his medication Toujeo SoloStar U-300 Insulin 300 unit/mL (1.5 mL) subcutaneous pen RxNorm: 1095212 INJECT 50 UNITS UNDER THE SKIN DAILY 07/01/2018 08/29/2018 Inactive Mucinex 600 mg tablet, extended release RxNorm: 440488 1 Tablet(s) PO BID 06/28/2018 07/04/2018 Inactive Zofran 4 mg tablet RxNorm: 718247 1 Tablet(s) PO TID as needed nausea 06/28/2018 07/02/2018 Inactive Kenalog 40 mg/mL suspension for injection RxNorm: 7111894 Milliliter(s) Inj 06/28/2018 06/28/2018 Inactive Flonase Allergy Relief 50 mcg/actuation nasal spray, suspension RxNorm: 0625830 1 [place] NASAL BID 06/28/20182017 Inactive Lyrica 50 mg capsule RxNorm: 080047 Capsule(s) PO daily 201707/07/2018 Inactive Novolog Flexpen U-100 Insulin aspart 100 unit/mL subcutaneous RxNorm: 1263120 10 Unit(s) SQ AC 06/18/20182017 Inactive this is an update on his medication Lasix 20 mg tablet RxNorm: 278322 1 Tablet(s) PO BIW 201707/02/2018 Inactive atorvastatin 80 mg tablet RxNorm: 847660 1 Tablet(s) PO QHS 04/201812/06/2018 Active clonazepam 1 mg tablet RxNorm: 020205 2 Tablet(s) PO HS 201706/04/2019 Active clonazepam 1 mg tablet RxNorm: 893362 2 Tablet(s) PO HS as needed 06/10/2018 06/09/2018 Inactive Lyrica 50 mg capsule RxNorm: 208545 Capsule(s) PO daily 201707/08/2018 Inactive Lasix 20 mg tablet RxNorm: 037460 1 Tablet(s) PO TIW 201706/11/2018 Inactive Toujeo SoloStar U-300 Insulin 300 unit/mL (1.5 mL) subcutaneous pen RxNorm: 4046342 50 Unit(s) SQ daily 05/07/2018 06/30/2018 Inactive meloxicam 15 mg tablet RxNorm: 141629 15 Milligram(s) PO daily 05/02/2018 05/12/2018 Inactive ketorolac 30 mg/mL injection solution RxNorm: 548969 2 Milliliter(s) Inj 05/02/2018 05/02/2018 Inactive Toujeo SoloStar U-300 Insulin 300 unit/mL (1.5 mL) subcutaneous pen RxNorm: 2794831 45 Unit(s) daily 04/29/2018 Inactive clonazepam 1 mg tablet RxNorm: 985194 1 Tablet(s) PO Q8 as needed 04/29/2018 06/09/2018 Inactive doxycycline hyclate 100 mg tablet RxNorm: 0743520 1 Tablet(s) PO BID 04/29/2018 05/12/2018 Inactive Cymbalta 30 mg capsule,delayed release RxNorm: 049037 1 Capsule(s) PO QAM 03/13/2018 10/08/2018 Inactive Lexapro 10 mg tablet RxNorm: 597924 1 Tablet(s) PO QPM 201703/03/2018 Inactive Toujeo SoloStar U-300 Insulin 300 unit/mL (1.5 mL) subcutaneous pen RxNorm: 7303679 20 Unit(s) daily 02/28/2018 Inactive Protonix 40 mg tablet,delayed release RxNorm: 078574 1 Tablet(s) PO daily 01/29/2018 06/09/2018 Inactive clonazepam 1 mg tablet RxNorm: 693077 1 Tablet(s) PO Q8 as needed 12/12/2017 03/10/2018 Inactive Tamiflu 75 mg capsule RxNorm: 280857 1 Capsule(s) PO BID 201712/03/2017 Inactive doxycycline hyclate 100 mg capsule RxNorm: 3907137 1 Capsule(s) PO BID 09/07/2017 09/20/2017 Inactive doxycycline hyclate 100 mg capsule RxNorm: 1833830 1 Capsule(s) PO BID 08/27/2017 09/06/2017 Inactive prednisone 20 mg tablet RxNorm: 361760 2 Tablet(s) PO daily 08/31/2017 Inactive clopidogrel 75 mg tablet RxNorm: 905265 1 Tablet(s) PO daily 06/09/2018 Inactive atorvastatin 40 mg tablet RxNorm: 782979 1 Tablet(s) PO QHS 02/27/2018 Inactive losartan 25 mg tablet RxNorm: 334333 TAKE ONE TABLET BY MOUTH DAILY 08/22/2017 06/09/2018 Inactive Toujeo SoloStar 300 unit/mL (1.5 mL) subcutaneous insulin pen RxNorm: 5794001 45 Unit(s) daily 08/17/2017 08/20/2017 Inactive mupirocin 2 % topical ointment RxNorm: 885929 1 Application TOP TID to the lesions on chest 08/16/2017 08/25/2017 Inactive Toujeo SoloStar 300 unit/mL (1.5 mL) subcutaneous insulin pen RxNorm: 7815460 40 Unit(s) daily 08/16/2017 08/16/2017 Inactive valacyclovir 1 gram tablet RxNorm: 078869 1 Tablet(s) PO TID 08/01/2017 Inactive clonazepam 1 mg tablet RxNorm: 839676 1 Tablet(s) PO Q8 as needed 07/03/2017 09/30/2017 Inactive Levaquin 500 mg tablet RxNorm: 480762 1 Tablet(s) PO daily 06/25/2017 Inactive Levaquin 500 mg tablet RxNorm: 285023 1 Tablet(s) PO daily 06/21/2017 Inactive losartan 25 mg tablet RxNorm: 623025 1 Tablet(s) PO daily 201608/16/2017 Inactive nystatin 100,000 unit/mL oral suspension RxNorm: 182238 5 Milliliter(s) PO QID Swish et swallow 06/18/2017 06/17/2017 Inactive nystatin 100,000 unit/mL oral suspension RxNorm: 022700 5 Milliliter(s) PO QID Swish et swallow 06/18/2017 06/27/2017 Inactive Cipro 500 mg tablet RxNorm: 032956 1 Tablet(s) PO BID 201606/18/2017 Inactive Cipro 500 mg tablet RxNorm: 583613 1 Tablet(s) PO BID 201606/11/2017 Inactive Toujeo SoloStar 300 unit/mL (1.5 mL) subcutaneous insulin pen RxNorm: 1284196 INJECT 10 UNITS UNDER THE SKIN DAILY 06/12/2017 08/15/2017 Inactive Keflex 500 mg capsule RxNorm: 159151 1 Capsule(s) PO TID 201606/13/2017 Inactive doxycycline hyclate 100 mg capsule RxNorm: 6798865 1 Capsule(s) PO BID 05/17/2017 05/21/2017 Inactive doxycycline hyclate 100 mg capsule RxNorm: 1368208 1 Capsule(s) PO BID 05/11/2017 05/16/2017 Inactive losartan 25 mg tablet RxNorm: 768547 1 Tablet(s) PO daily 201606/17/2017 Inactive atorvastatin 40 mg tablet RxNorm: 904652 1 Tablet(s) PO daily 03/01/2017 08/23/2017 Inactive clopidogrel 75 mg tablet RxNorm: 966910 1 Tablet(s) PO daily 08/23/2017 Inactive Flonase Allergy Relief 50 mcg/actuation nasal spray, suspension RxNorm: 6570374 2 [place] NASAL daily 02/16/20172016 Inactive Augmentin 875 mg-125 mg tablet RxNorm: 695405 1 Tablet(s) PO BID 02/16/2017 02/22/2017 Inactive GET PROBIOTIC TO TAKE WHILE ON ABX Tamiflu 75 mg capsule RxNorm: 605456 1 Capsule(s) PO BID 201602/20/2017 Inactive ceftriaxone 500 mg solution for injection RxNorm: 0533115 1 Milliliter(s) Inj 02/16/2017 02/16/2017 Inactive Kenalog 40 mg/mL suspension for injection RxNorm: 0708423 1 Milliliter(s) Inj 02/16/2017 02/16/2017 Inactive Toujeo SoloStar 300 unit/mL (1.5 mL) subcutaneous insulin pen RxNorm: 4717503 25 Unit(s) SQ QAM 02/12/2017 06/10/2017 Inactive Toujeo SoloStar 300 unit/mL (1.5 mL) subcutaneous insulin pen RxNorm: 5174286 10 Unit(s) SQ QAM 02/05/2017 02/11/2017 Inactive lisinopril 10 mg tablet RxNorm: 717669 1 Tablet(s) PO daily 02/28/2017 Inactive atorvastatin 40 mg tablet RxNorm: 253184 1 Tablet(s) PO daily 02/01/2017 02/28/2017 Inactive doxycycline hyclate 100 mg capsule RxNorm: 1495442 1 Capsule(s) PO BID 02/01/2017 02/10/2017 Inactive clonazepam 1 mg tablet RxNorm: 157245 1 Tablet(s) PO Q8 as needed 10/09/2016 01/05/2017 Inactive ceftriaxone 1 gram solution for injection RxNorm: 4480230 Inj 10/06/2016 10/06/2016 Inactive cyclobenzaprine 10 mg tablet RxNorm: 526164 1/2-1 Tablet(s) PO TID PRN 07/18/2016 01/28/2017 Inactive clonazepam 1 mg tablet RxNorm: 996477 1 Tablet(s) PO Q8 as needed 05/31/2016 05/29/2016 Inactive clonazepam 1 mg tablet RxNorm: 534521 1 Tablet(s) PO Q8 as needed 05/31/2016 08/28/2016 Inactive Toujeo SoloStar 300 unit/mL (1.5 mL) subcutaneous insulin pen RxNorm: 9357367 10 Unit(s) SQ daily 05/23/2016 01/28/2017 Inactive Crestor 10 mg tablet RxNorm: 091818 1 Tablet(s) PO QHS 201501/28/2017 Inactive Crestor 10 mg tablet RxNorm: 474112 1 Tablet(s) PO QHS 201505/18/2016 Inactive clonazepam 1 mg tablet RxNorm: 590945 1 Tablet(s) PO Q8 as needed 04/25/2016 05/30/2016 Inactive prednisone 20 mg tablet RxNorm: 191706 3 Tablet(s) PO daily 06/201602/10/2016 Inactive prednisone 20 mg tablet RxNorm: 358298 3 Tablet(s) PO daily 06/201605/14/2016 Inactive Kenalog 40 mg/mL suspension for injection RxNorm: 2570922 Milliliter(s) Inj 01/20/2016 01/20/2016 Inactive aspirin 81 mg tablet,delayed release RxNorm: 182579 1 Tablet(s) PO daily No Start Date Active Brilinta 90 mg tablet RxNorm: 1501111 1 Tablet(s) PO BID No Start Date Active acetaminophen 500 mg tablet RxNorm: 216171 1-2 Tablet(s) PO as needed No Start Date Active clopidogrel 75 mg tablet RxNorm: 796541 1 Tablet(s) PO daily No Start Date 02/28/2017 Inactive Novolog Flexpen U-100 Insulin aspart 100 unit/mL subcutaneous RxNorm: 9577523 5 units with breakfast lunch and 10 supper Unit(s) SQ No Start Date 06/17/2018 Inactive clonazepam 1 mg tablet RxNorm: 150192 1 Tablet(s) PO QHS No Start Date 04/24/2016 Inactive Coreg 6.25 mg tablet RxNorm: 851185 1 Tablet(s) PO BID No Start Date 09/29/2018 Inactive acyclovir 400 mg tablet RxNorm: 733897 2 Tablet(s) PO 5x daily No Start Date 02/28/2017 Inactive Lyrica 50 mg capsule RxNorm: 075078 Capsule(s) PO BID No Start Date 06/09/2018 Inactive Vraylar 3 mg capsule RxNorm: 5551088 1 Capsule(s) PO daily No Start Date 03/12/2018 Inactive valsartan 80 mg tablet RxNorm: 804003 1 Tablet(s) PO daily No Start Date 10/22/2018 Inactive Medication Administered Medication Codes Instructions Start Date Status ketorolac 60 mg/2 mL intramuscular solution RxNorm: 6272571 Milliliter 10/21/2018 No longer Active Kenalog 40 mg/mL suspension for injection RxNorm: 4671982 1.5Milliliter 09/30/2018 No longer Active Kenalog 40 mg/mL suspension for injection RxNorm: 0247158 Milliliter 09/11/2018 No longer Active Kenalog 40 mg/mL suspension for injection RxNorm: 2106154 Milliliter 06/28/2018 No longer Active ketorolac 30 mg/mL injection solution RxNorm: 904832 2Milliliter 05/02/2018 No longer Active ceftriaxone 500 mg solution for injection RxNorm: 7572172 1Milliliter 02/16/2017 No longer Active Kenalog 40 mg/mL suspension for injection RxNorm: 1078904 1Milliliter 02/16/2017 No longer Active ceftriaxone 1 gram solution for injection RxNorm: 0639134 10/06/2016 No longer Active Kenalog 40 mg/mL suspension for injection RxNorm: 7473624 Milliliter 01/20/2016 No longer Active Immunizations Vaccine [...] Item Item Code Result Date Culture Sputum 132252 LOWER RESPIRATORY TRACT CULTURE SEE NOTES 10/16/2018 LIPID GRP 1241251 CHOLESTEROL TNP:Duplicate Order 09/10/2018 LIPID GRP Triglyceride TNP:Duplicate Order 2017 LIPID GRP HDL CHOLESTEROL TNP:Duplicate Order 2017 LIPID GRP Chol/HDL Ratio TNP:Duplicate Order 2017 LIPID GRP 4394189 LDL Cholesterol TNP:Duplicate Order 2017 A1C HPLC 4860506 Hgb A1c 32656-5 TNP:Duplicate Order 2017 C Diff An [id number] GDH TNP:Lab Request 06/22/2018 C Diff An [id number] Toxin A/B TNP:Lab Request 06/22/2018 C Diff An [id number] C Diff Analyzer TNP:Lab Request 2017 C Diff An [id number] IC OK? TNP:Lab Request 06/22/2018 CBC 0252885 WBC 6.4 10e9/L 05/02/2018 CBC 8330652 RBC 5.60 10e12/L 05/02/2018 CBC 5023124 HEMOGLOBIN 17.0 g/dL 05/02/2018 CBC 5337896 HEMATOCRIT 48.0 % 05/02/2018 CBC 6657833 MCV 85.7 fL 05/02/2018 CBC 6088200 MCH 30.4 pg 05/02/2018 CBC 6236782 MCHC 35.4 g/dL 05/02/2018 CBC 9776813 PLATELET COUNT 166 10e9/L 05/02/2018 CBC 1740545 Mean Plt Volume 11.6 fL 05/02/2018 CBC 9647195 Neut Auto 48.6 % 05/02/2018 CBC 3092811 Lymph Auto 41.7 % 05/02/2018 CBC 8810115 [place] Auto 8.1 % 05/02/2018 CBC 6311523 RDW 13.1 % 05/02/2018 CBC 4545700 Eos Auto 1.1 % 05/02/2018 CBC 5102721 Baso Auto 0.5 % 05/02/2018 CBC 2179615 Neutrophil Abs 3.11 10e9/L 05/02/2018 CBC 9824348 Lymphocyte Abs 2.67 10e9/L 05/02/2018 CBC 5616188 Monocyte Abs 0.52 10e9/L 05/02/2018 CBC 1984265 Eosinophil Abs 0.07 10e9/L 05/02/2018 CBC 2915263 RDW-SD 40.0 fL 05/02/2018 CBC 1692812 Basophil Abs 0.03 10e9/L 05/02/2018 CHEM 14 5386625 AST 17 U/L 05/02/2018 CHEM 14 0782099 ALT 17 U/L 05/02/2018 CHEM 14 3980851 BUN 17 mg/dL 05/02/2018 CHEM 14 5761193 ALBUMIN 4.0 g/dL 05/02/2018 CHEM 14 0108066 CHLORIDE 97 mmol/L 05/02/2018 CHEM 14 6788661 Bili Total 0.9 mg/dL 05/02/2018 CHEM 14 5680122 ALK PHOS 67 U/L 05/02/2018 CHEM 14 7201658 SODIUM 135 mmol/L 05/02/2018 CHEM 14 6264649 CREATININE 1.18 mg/dL 05/02/2018 CHEM 14 9386187 CALCIUM 9.4 mg/dL 05/02/2018 CHEM 14 3233001 POTASSIUM 4.4 mmol/L 05/02/2018 CHEM 14 4082247 TOTAL PROTEIN 6.9 g/dL 05/02/2018 CHEM 14 3086787 GLUCOSE 316 mg/dL 05/02/2018 CHEM 14 0181564 Bicarbonate 29 mmol/L 05/02/2018 CHEM 14 6842669 AGAP 9 mmol/L 05/02/2018 MEAN GLUC 6159953 Calc Mean Gluc 283 mg/dL 05/02/2018 A1C HPLC 0622076 Hgb A1c 62532-6 11.5 % 05/02/2018 GFR CALC 2839737 GFR Non Afr Amr >60 mL/min 05/02/2018 GFR CALC 8325361 GFR Afr Amr >60 mL/min 05/02/2018 JIC Gold 5250137 JIC Gold Complete 02/28/2018 GFR CALC 1043295 GFR Non Afr Amr >60 mL/min 02/28/2018 GFR CALC 2032980 GFR Afr Amr >60 mL/min 02/28/2018 UA W/CII 3778903 UA Urine Appear Normal 02/28/2018 UA W/CII 9979259 UA Protein 1+ 02/28/2018 UA W/CII 6116978 UA Hemoglobin Negative 02/28/2018 UA W/CII 7340374 UA Glucose 4+ 02/28/2018 UA W/CII 1693967 UA Ketones Trace 02/28/2018 UA W/CII 2885140 UA pH 5.5 02/28/2018 UA W/CII 2615906 U Spec [place] 1.015 02/28/2018 UA W/CII 4452991 UA Bilirubin Negative 02/28/2018 UA W/CII 1497770 UA Nitrite NEG 02/28/2018 UA W/CII 1737340 UA Leuk Esteras Negative 02/28/2018 MICR 8139266 UA WBC/hpf 1 02/28/2018 MICR 1045187 UA RBC hpf 2 02/28/2018 MICR 4641960 UA WBC auto 3.8 /uL 02/28/2018 MICR 5094293 UA RBC auto 12.2 /uL 02/28/2018 MICR 1617209 UA SQ EPI auto 2.3 /uL 02/28/2018 MICR 7951823 UA H Cast auto 0.10 /uL 02/28/2018 CBC 7755877 WBC 6.4 10e9/L 02/28/2018 CBC 0151870 RBC 5.51 10e12/L 02/28/2018 CBC 0775908 HEMOGLOBIN 16.7 g/dL 02/28/2018 CBC 0686248 HEMATOCRIT 46.9 % 02/28/2018 CBC 5317077 MCV 85.1 fL 02/28/2018 CBC 3583702 MCH 30.3 pg 02/28/2018 CBC 6404261 MCHC 35.6 g/dL 02/28/2018 CBC 5015983 PLATELET COUNT 173 10e9/L 02/28/2018 CBC 5413371 Mean Plt Volume 11.6 fL 02/28/2018 CBC 5071661 Neut Auto 51.8 % 02/28/2018 CBC 4172064 Lymph Auto 39.9 % 02/28/2018 CBC 1287578 [place] Auto 7.3 % 02/28/2018 CBC 4947778 Eos Auto 0.8 % 02/28/2018 CBC 6765708 RDW 13.3 % 02/28/2018 CBC 5940905 Baso Auto 0.2 % 02/28/2018 CBC 5248945 Neutrophil Abs 3.32 10e9/L 02/28/2018 CBC 1845318 Lymphocyte Abs 2.55 10e9/L 02/28/2018 CBC 3350116 Monocyte Abs 0.47 10e9/L 02/28/2018 CBC 4920662 Eosinophil Abs 0.05 10e9/L 02/28/2018 CBC 6914043 Basophil Abs 0.01 10e9/L 02/28/2018 CBC 1508178 RDW-SD 40.8 fL 02/28/2018 CHEM 14 8789541 AST 17 U/L 02/28/2018 CHEM 14 4379719 ALT 17 U/L 02/28/2018 CHEM 14 1708419 BUN 20 mg/dL 02/28/2018 CHEM 14 4544804 ALBUMIN 4.1 g/dL 02/28/2018 CHEM 14 8504040 CHLORIDE 97 mmol/L 02/28/2018 CHEM 14 7431388 Bili Total 1.3 mg/dL 02/28/2018 CHEM 14 3550086 ALK PHOS 78 U/L 02/28/2018 CHEM 14 2176365 SODIUM 135 mmol/L 02/28/2018 CHEM 14 9528752 CREATININE 1.09 mg/dL 02/28/2018 CHEM 14 7199262 CALCIUM 9.6 mg/dL 02/28/2018 CHEM 14 4324816 POTASSIUM 3.8 mmol/L 02/28/2018 CHEM 14 9078935 TOTAL PROTEIN 7.3 g/dL 02/28/2018 CHEM 14 8342751 GLUCOSE 349 mg/dL 02/28/2018 CHEM 14 4332844 Bicarbonate 29 mmol/L 02/28/2018 CHEM 14 8375555 AGAP 9 mmol/L 02/28/2018 [place] Spotted Fever Igg/Igm 676056 FEI MT SPOTTED FEVER IGM EIA . 09/05/2017 [place] Spotted Fever Igg/Igm 447440 RMSF, IGM 0.17 index 09/05/2017 [place] Spotted Fever Igg/Igm 364119 FEI MT SPOTTED FEVER IGG EIA FLEX . 09/05/2017 [place] Spotted Fever Igg/Igm 899878 RMSF, IGG SCREEN-FLEX Positive 09/05/2017 Fei Mtn Spot'D Fev Igg 739204 RMSF, IGG -TITER IFA <1:64 11/2016 Ehrlichia Chaffeensis Antibody Igm 142124 EHRLICHIA CHAFFEENSIS IGM < 1:16 09/03/2017 Ehrlichia [place]affeensis Antibody Igg 138590 EHRLICHIA CHAFFEENSIS IGG <1:64 09/03/2017 Lymes Disease Total Antibodies With Western Blot Reflex B. BURGDORFERI, IGG/IGM 0.223 08/30/2017 Lymes Disease Total Antibodies With Western Blot Reflex C-Reactive Protein Qnt Crqnt CRP 0.00 mg/dl 08/27/2017 Sed Rate Ord21 ESR 8 mm/hr 08/27/2017 Comp Metabolic Udz342 NA 135 mEq/L 08/16/2017 Comp Metabolic Yex382 K 4.1 mEq/L 08/16/2017 Comp Metabolic Ljv785 CL 98 mEq/L 08/16/2017 Comp Metabolic Jvx198 CO2 28.0 mEq/L 08/16/2017 Comp Metabolic Ddj190 ANION GAP 13 08/16/2017 Comp Metabolic Wxv686 GLUCOSE 299 mg/dL 08/16/2017 Comp Metabolic Egb780 Creat 0.9 mg/dL 08/16/2017 Comp Metabolic Lon002 eGFR 90 ml/min/1.73m2 08/16/2017 Comp Metabolic Ahq382 BUN 20 mg/dL 08/16/2017 Comp Metabolic Wod196 B/C Ratio 21.5 Ratio 08/16/2017 Comp Metabolic Pju771 CALCIUM 9.2 mg/dL 08/16/2017 Comp Metabolic Jyq312 ALK PHOS 84 U/L 08/16/2017 Comp Metabolic Pgl904 AST(SGOT) 19 U/L 08/16/2017 Comp Metabolic Ext754 ALT(SGPT) 24 U/L 08/16/2017 Comp Metabolic Zyb271 BILI T 1.1 mg/dL 08/16/2017 Comp Metabolic Rwe003 ALBUMIN 4.2 g/dL 08/16/2017 Comp Metabolic Hdh751 TPRO 7.2 g/dL 08/16/2017 Comp Metabolic Aib433 GLOB 3.0 g/dL 08/16/2017 Comp Metabolic Onu967 A/G Ratio 1.4 Ratio 08/16/2017 Comp Metabolic Rej115 Osmo 284 mOsmo 08/16/2017 %Hba1C Wlr281 % HbA1c 59519-4 12.5 % 08/16/2017 %Hba1C Xlb337 Gluc Ave 312 mg/dL 08/16/2017 Urine Culture Ucult Complete NO Growth Day 2 06/23/2017 Urine Culture Ucult Preliminary NO Growth Day 1 06/23/2017 C RAP A SC [id number] Strep A Negative 06/08/2017 %Hba1C Btx412 % HbA1c 72470-5 9.5 % 05/04/2017 %Hba1C Exl045 Gluc Ave 226 mg/dL 05/04/2017 Tsh Ord6 [...] 31.7 pg 05/04/2017 Cbc With Differential Ord2 [place]% 8.5 % 05/04/2017 Cbc With Differential Ord2 [...] 2.48 K/ul 05/04/2017 Cbc With Differential Ord2 [place] ABS# 0.5 K/ul 05/04/2017 Cbc With Differential Ord2 Eos ABS# 0.1 K/ul 05/04/2017 Cbc With Differential Ord2 Baso ABS# 0.0 K/ul 05/04/2017 Comp Metabolic Gre344 NA 135 mEq/L 05/04/2017 Comp Metabolic Cok853 K 4.2 mEq/L 05/04/2017 Comp Metabolic Kdb101 CL 99 mEq/L 05/04/2017 Comp Metabolic Kve060 CO2 26.0 mEq/L 05/04/2017 Comp Metabolic Nva412 ANION GAP 14 05/04/2017 Comp Metabolic Qaj587 GLUCOSE 277 mg/dL 05/04/2017 Comp Metabolic Mes471 Creat 0.9 mg/dL 05/04/2017 Comp Metabolic Sef921 eGFR 96 ml/min/1.73m2 05/04/2017 Comp Metabolic Vzq597 BUN 23 mg/dL 05/04/2017 Comp Metabolic Hnf723 B/C Ratio 26.1 Ratio 05/04/2017 Comp Metabolic Qja555 CALCIUM 8.9 mg/dL 05/04/2017 Comp Metabolic Qbm297 ALK PHOS 81 U/L 05/04/2017 Comp Metabolic Ixb515 AST(SGOT) 21 U/L 05/04/2017 Comp Metabolic Pcx981 ALT(SGPT) 27 U/L 05/04/2017 Comp Metabolic Tpg061 BILI T 1.2 mg/dL 05/04/2017 Comp Metabolic Jbo132 ALBUMIN 4.0 g/dL 05/04/2017 Comp Metabolic Xzg258 TPRO 6.7 g/dL 05/04/2017 Comp Metabolic Plz152 GLOB 2.7 g/dL 05/04/2017 Comp Metabolic Spf706 A/G Ratio 1.5 Ratio 05/04/2017 Comp Metabolic Ygz704 Osmo 284 mOsmo 05/04/2017 C A/B FLU 5945463 Influenza A Scr Negative 02/16/2017 C A/B FLU 1817700 Influenza B Scr Positive 02/16/2017 Cbc With [...] 39.7 % 05/23/2016 Cbc With Differential Ord2 [place]% 8.8 % 05/23/2016 Cbc With Differential Ord2 [...] 2.07 K/ul 05/23/2016 Cbc With Differential Ord2 [place] ABS# 0.5 K/ul 05/23/2016 Cbc With Differential Ord2 Eos ABS# 0.1 K/ul 05/23/2016 Cbc With Differential Ord2 Baso ABS# 0.0 K/ul 05/23/2016 Lipid Ord30 CHOL 397 mg/dL 05/17/2016 Lipid Ord30 HDL 48.0 mg/dl 05/17/2016 Lipid Ord30 TRIG 578 mg/dL 05/17/2016 Lipid Ord30 LDL Unable to calculate Due to elevated triglycerides mg/dL 05/17/2016 Lipid Ord30 C/HDL 8.3 Ratio 05/17/2016 %Hba1C Dpk573 % HbA1c 87195-4 12.4 % 05/16/2016 %Hba1C Rxe000 Gluc Ave 309 mg/dL 05/16/2016 Cbc With [...] 87.4 fl 05/15/2016 Cbc With Differential Ord2 [place]% 7.8 % 05/15/2016 Cbc With Differential Ord2 [...] 2.04 K/ul 05/15/2016 Cbc With Differential Ord2 [place] ABS# 0.5 K/ul 05/15/2016 Cbc With Differential Ord2 Eos ABS# 0.1 K/ul 05/15/2016 Cbc With Differential Ord2 Baso ABS# 0.0 K/ul 05/15/2016 Tsh Ord6 hTSH II 1.70 uIU/mL 05/15/2016 Comp Metabolic Pmi822 NA 135 mEq/L 05/15/2016 Comp Metabolic Usd405 K 3.9 mEq/L 05/15/2016 Comp Metabolic Qot686 CL 96 mEq/L 05/15/2016 Comp Metabolic Xpo982 CO2 27.0 mEq/L 05/15/2016 Comp Metabolic Byg956 ANION GAP 16 05/15/2016 Comp Metabolic Tei485 GLUCOSE 183 mg/dL 05/15/2016 Comp Metabolic Yhk412 Creat 1.1 mg/dL 05/15/2016 Comp Metabolic Ncd620 eGFR 71 ml/min/1.73m2 05/15/2016 Comp Metabolic Fto102 BUN 17 mg/dL 05/15/2016 Comp Metabolic Hjq994 B/C Ratio 14.9 Ratio 05/15/2016 Comp Metabolic Irw608 CALCIUM 9.6 mg/dL 05/15/2016 Comp Metabolic Gig847 ALK PHOS 100 U/L 05/15/2016 Comp Metabolic Peo400 AST(SGOT) 20 U/L 05/15/2016 Comp Metabolic Zzu148 ALT(SGPT) 20 U/L 05/15/2016 Comp Metabolic Rwp738 BILI T 1.3 mg/dL 05/15/2016 Comp Metabolic Fvl962 ALBUMIN 4.6 g/dL 05/15/2016 Comp Metabolic Byb739 TPRO 8.1 g/dL 05/15/2016 Comp Metabolic Rqu198 GLOB 3.5 g/dL 05/15/2016 Comp Metabolic Crm398 A/G Ratio 1.3 Ratio 05/15/2016 Comp Metabolic Sjb188 Osmo 276 mOsmo 05/15/2016 Review of Systems [...] joint 10/24/2018 None Full Exam - General 1995 Constitutional general appearance Overall: well developed 10/23/2018 [...] of skin Location: face 05/04/2017 patch left bahai Full Exam - General 1994 Constitutional general [...] 01/29/2017 decreased strength RUE/RLE 3/5, LUE /LLE 5/ Full Exam - General [...] CPT-4: J3301 09/30/2018 THER/PROPH/DIAG INJ SC/IM CPT-4: 18379 09/11/2018 TRIAMCINOLONE ACET INJ NOS CPT-4: J3301 09/11/2018 IMMUNIZATION ADMIN CPT -4: 85861 07/22/2018 FLU VAC NO PRSV 4 EMNA 3 YRS+ CPT-4: 88777 07/22/2018 TRIAMCINOLONE ACET INJ NOS CPT-4: J3301 06/28/2018 KETOROLAC TROMETHAMINE INJ CPT-4: J1885 05/02/2018 FLU VAC NO PRSV 4 MENA 3 YRS+ CPT-4: 69082 08/16/2017 IMMUNIZATION ADMIN CPT -4: 94813 08/16/2017 URINALYSIS NONAUTO W/O SCOPE CPT-4: 04098 06/21/2017 TRIAMCINOLONE ACET INJ NOS CPT-4: J3301 05/04/2017 THER/PROPH/DIAG INJ SC/IM CPT-4: 33123 05/04/2017 TRIAMCINOLONE ACET INJ NOS CPT-4: J3301 02/16/2017 ROCEPHIN, PER 250 MG CPT-4: J0696 02/16/2017 ROCEPHIN, PER 250 MG CPT-4: J0696 10/06/2016 URINALYSIS NONAUTO W/O SCOPE CPT-4: 53166 07/18/2016 TRIAMCINOLONE ACET INJ NOS CPT-4: J3301 01/20/2016 Vital Signs Date Vital 10/30/2018 Blood Pressure 1: 130/72 Code : 8480-6 BMI: 33.3 Code : 14644-4 Heart Rate 1 : 83 bpm Height: 6'2" SpO2: 95% Temperature: 36.5 (C) / 97.7 (F) Weight: 259 lbs 10/24/2018 Blood Pressure 1: 130/70 Code : 8480-6 Heart Rate 1: 95 bpm Height: 6'2" SpO2: 96% 10/23/2018 Blood Pressure 1: 100/70 Code : 8480-6 Blood Pressure 2: 102/70 Code: 8480-6 BMI: 33.3 Code: 88217-1 Heart Rate 1: 106 bpm Height: 6'2" SpO2: 98% Weight: 259 lbs 10/21/2018 Blood Pressure 1: 140/90 Code : 8480-6 BMI: 32.9 Code : 76948-4 Heart Rate 1 : 96 bpm Height: 6'2" SpO2: 92% Weight: 256 lbs 10/17/2018 Blood Pressure 1: 110/68 Code : 8480-6 BMI: 32.9 Code : 37694-3 Heart Rate 1 : 82 bpm Height: 6'2" SpO2: 97% Weight: 256 lbs 10/14/2018 Blood Pressure 1: 124/70 Code : 8480-6 BMI: 33.6 Code : 39393-3 Heart Rate 1 : 76 bpm Height: 6'2" SpO2: 99% Temperature: 36.3 (C) / 97.3 (F) Weight: 262 lbs 09/30/2018 Blood Pressure 1: 138/82 Code : 8480-6 BMI: 33.6 Code : 99190-4 Heart Rate 1 : 82 bpm Height: 6'2" SpO2: 98% Temperature: 36.3 (C) / 97.3 (F) Weight: 262 lbs 09/09/2018 Blood Pressure 1: 140/80 Code : 8480-6 BMI: 33.0 Code : 00197-1 Heart Rate 1 : 97 bpm Height: 6'2" SpO2: 93% Temperature: 36.8 (C) / 98.2 (F) Weight: 257 lbs 07/22/2018 Blood Pressure 1: 120/78 Code : 8480-6 BMI: 31.6 Code : 69196-4 Heart Rate 1 : 87 bpm Height: 6'2" SpO2: 98% Weight: 246 lbs 07/16/2018 Blood Pressure 1: 132/74 Code : 8480-6 BMI: 31.2 Code : 12328-8 Heart Rate 1 : 90 bpm Height: 6'2" SpO2: 96% Weight: 243 lbs 07/01/2018 Blood Pressure 1: 142/82 Code : 8480-6 BMI: 31.8 Code : 25766-0 Heart Rate 1 : 88 bpm Height: 6'2" SpO2: 98% Weight: 248 lbs 06/28/2018 Blood Pressure 1: 132/76 Code : 8480-6 BMI: 31.8 Code : 65492-7 Heart Rate 1 : 107 bpm Height: 6'2" SpO2: 98% Temperature: 37.9 (C) / 100.3 (F) Weight: 248 lbs 06/18/2018 Blood Pressure 1: 138/82 Code : 8480-6 BMI: 31.8 Code : 06312-7 Heart Rate 1 : 82 bpm Height: 6'2" SpO2: 97% Weight: 248 lbs 06/04/2018 Blood Pressure 1: 128/84 Code : 8480-6 BMI: 33.9 Code : 24366-4 Heart Rate 1 : 86 bpm Height: 6'2" SpO2: 95% Weight: 264 lbs 05/13/2018 Blood Pressure 1: 130/80 Code : 8480-6 BMI: 31.1 Code : 51168-9 Heart Rate 1 : 100 bpm Height: 6'2" SpO2: 94% Weight: 242 lbs 05/02/2018 Blood Pressure 1: 134/84 Code : 8480-6 BMI: 31.2 Code : 99514-1 Heart Rate 1 : 93 bpm Height: 6'2" SpO2: 98% Weight: 243 lbs 04/29/2018 Blood Pressure 1: 142/88 Code : 8480-6 BMI: 31.6 Code : 41813-1 Heart Rate 1 : 96 bpm Height: 6'2" SpO2: 96% Temperature: 36.7 (C) / 98.1 (F) Weight: 246 lbs 03/13/2018 Blood Pressure 1: 120/76 Code : 8480-6 BMI: 30.9 Code : 44686-8 Heart Rate 1 : 112 bpm Height: 6'2" SpO2: 97% Weight: 241 lbs 03/07/2018 Blood Pressure 1: 108/78 Code : 8480-6 BMI: 30.0 Code : 19709-5 Heart Rate 1 : 87 bpm Height: 6'2" SpO2: 98% Weight: 234 lbs 02/28/2018 Blood Pressure 1: 106/74 Code : 8480-6 BMI: 30.0 Code : 45342-1 Heart Rate 1 : 101 bpm Height: 6'2" SpO2: 98% Temperature: 36.4 (C) / 97.5 (F) Weight: 234 lbs 02/13/2018 Blood Pressure 1: 110/78 Code : 8480-6 BMI: 30.0 Code : 86516-4 Heart Rate 1 : 106 bpm Height: 6'2" SpO2: 98% Weight: 234 lbs 01/29/2018 Blood Pressure 1: 106/68 Code : 8480-6 BMI: 30.0 Code : 11310-4 Heart Rate 1 : 108 bpm Height: 6'2" SpO2: 98% Weight: 234 lbs 08/27/2017 Blood Pressure 1: 134/76 Code : 8480-6 Heart Rate 1: 98 bpm Height: SpO2: 97% Weight: 08/16/2017 Blood Pressure 1: 128/80 Code : 8480-6 BMI: 32.0 Code : 51710-5 Heart Rate 1 : 94 bpm Height: [...] Code : 8480-6 BMI: 31.8 Code : 78382-8 Heart Rate 1 : 102 bpm Height: [...] Code : 8480-6 BMI: 31.8 Code : 68715-7 Heart Rate 1 : 85 bpm Height: 6'2" SpO2: 96% Temperature: 36.6 (C) / 97.9 (F) Weight: 248 lbs 02/12/2017 Blood Pressure 1: 126/76 Code : 8480-6 BMI: 31.8 Code : 79401-5 Heart Rate 1 : 106 bpm Height: 6'2" SpO2: 91% Weight: 248 lbs 02/05/2017 Blood Pressure 1: 146/86 Code : 8480-6 BMI: 31.9 Code : 04504-4 Heart Rate 1 : 98 bpm Height: 6'2" SpO2: 87% Temperature: 36.7 (C) / 98.0 (F) Weight: 248 lbs 8 oz 01/29/2017 Blood Pressure 1: 132/84 Code : 8480-6 BMI: 31.8 Code : 21546-0 Heart Rate 1 : 83 bpm Height: 6'2" SpO2: 97% Weight: 248 lbs 10/13/2016 Blood Pressure 1: 128/72 Code : 8480-6 Heart Rate 1: 86 bpm SpO2: 94% 10/09/2016 Blood Pressure 1: 128/68 Code : 8480-6 Heart Rate 1: 136 bpm SpO2: 94% Temperature: 36.8 (C) / 98.2 (F) 10/06/2016 Blood Pressure 1: 140/80 Code : 8480-6 BMI: 32.1 Code : 67503-4 Heart Rate 1 : 94 bpm Height: 6'2" SpO2: 95% Weight: 250 lbs 07/18/2016 Blood Pressure 1: 128/86 Code : 8480-6 BMI: 32.1 Code : 58290-4 Heart Rate 1 : 89 bpm Height: 6'2" SpO2: 96% Weight: 250 lbs 06/22/2016 Blood Pressure 1: 118/70 Code : 8480-6 BMI: 32.1 Code : 42005-1 Heart Rate 1 : 70 bpm Height: 6'2" SpO2: 97% Weight: 250 lbs 05/23/2016 Blood Pressure 1: 128/80 Code : 8480-6 BMI: 32.1 Code : 04074-9 Heart Rate 1 : 76 bpm Height: 6'2" SpO2: 98% Weight: 250 lbs 05/15/2016 Blood Pressure 1: 110/90 Code : 8480-6 BMI: 31.3 Code : 38904-1 Heart Rate 1 : 111 bpm Height: 6'2" SpO2: 97% Temperature: 36.6 (C) / 97.8 (F) Weight: 244 lbs 01/20/2016 Blood Pressure 1: 128/76 Code : 8480-6 BMI: 33.0 Code : 05745-5 Heart Rate 1 : 103 bpm Height: [...] data Encounters Encounter Performer Location Codes Date ([id number]) 99373 EST. PATIENT, LEVEL III Diagnosis: Pneumonia due to other Gram-negative bacteria[ICD10: J15.6] Diagnosis: Cough[ICD10: R05] Melida Ha MD, [facility] CPT-4: 93459 10/30/2018 ([id number]) 21604 EST. PATIENT, LEVEL II Diagnosis: Pain in joints of right hand[ICD10: M25.541] Diagnosis: Trigger finger, right middle finger[ICD10: M65.331] Marcela Ha MD, [facility] CPT-4: 89640 10/24/2018 ([id number]) 81059 EST. PATIENT, LEVEL IV Diagnosis: Essential (primary) hypertension[ICD10: I10] Diagnosis: Type 2 diabetes mellitus with foot ulcer[ICD10: E11.621] Melida Ha MD [facility] CPT-4: 59199 10/23/2018 ([id number]) 29787 EST. PATIENT, LEVEL III Diagnosis: Cellulitis of right finger[ICD10: L03.011] Diagnosis: Type 2 diabetes mellitus with foot ulcer[ICD10: E11.621] Diagnosis: Pain in right hand[ICD10: M79.641] Melida Ha MD, [facility] CPT-4: 38021 10/21/2018 76085 EST. PATIENT, LEVEL III Diagnosis: Spontaneous ecchymoses[ICD10: R23.3] Diagnosis: Cellulitis of right lower limb[ICD10: L03.115] Diagnosis: Cellulitis of left lower limb[ICD10: L03.116] Madeline Ha MD, [facility] CPT-4: 49472 10/17/2018 ([id number]) 46225 EST. PATIENT, LEVEL III Diagnosis: Cough[ICD10: R05] Diagnosis: Acute bronchitis, unspecified[ICD10: J20.9] Melida Ha MD, [facility] CPT-4: 21671 10/14/2018 [id number] EST. PATIENT, LEVEL III Diagnosis: Acute laryngopharyngitis[ICD10: J06.0] Diagnosis: Cough[ICD10: R05] Madeline Ha MD, [facility] CPT-4: 43772 09/30/2018 ([id number]) 39549 EST. PATIENT, LEVEL III Diagnosis: Acute recurrent maxillary sinusitis[ICD10: J01.01] Diagnosis: Cough[ICD10: R05] Diagnosis: Type 2 diabetes mellitus with hyperglycemia[ICD10: E11.65] Marcela Ha MD, [facility] CPT-4: 50747 09/09/2018 ([id number]) 98311 EST. PATIENT, LEVEL IV Diagnosis: Essential (primary) hypertension[ICD10: I10] Diagnosis: Mixed hyperlipidemia[ICD10: E78.2] Diagnosis: Bipolar disorder, current episode depressed, moderate[ICD10: F31.32] Diagnosis: Type 2 diabetes mellitus with other specified complication[ICD10: E11.69] Melida Ha MD, [facility] CPT-4: 69271 2017 ([id number]) 21036 EST. PATIENT, LEVEL III Diagnosis: Insomnia due to medical condition[ICD10: G47.01] Marcela Ha MD, [facility] CPT-4: 01366 07/16/2018 ([id number]) Miscellaneous no charge Diagnosis: Cough[ICD10: R05] Madeline Ha MD, [facility] CPT-4: 37564 07/01/2018 [id number] EST. PATIENT, LEVEL III Diagnosis: Cough[ICD10: R05] Diagnosis: Acute laryngopharyngitis[ICD10: J06.0] Diagnosis: Other allergic rhinitis[ICD10: J30.89] Madeline Ha MD, [facility] CPT-4: 24240 06/28/2018 ([id number]) 95827 EST. PATIENT, LEVEL IV Diagnosis: Type 2 diabetes mellitus with hyperglycemia[ICD10: E11.65] Diagnosis: Essential (primary) hypertension[ICD10: I10] Melida Ha MD, [facility] CPT-4: 43035 06/18/2018 ([id number]) 04403 EST. PATIENT, LEVEL IV Diagnosis: Type 2 diabetes mellitus with hyperglycemia[ICD10: E11.65] Diagnosis: Essential (primary) hypertension[ICD10: I10] Diagnosis: Localized edema[ICD10: R60.0] Melida Ha MD, [facility] CPT- 4: 24098 06/04/2018 ([id number]) 29494 EST. PATIENT, LEVEL III Diagnosis: Type 2 diabetes mellitus with hyperglycemia[ICD10: E11.65] Diagnosis: Myalgia[ICD10: M79.1] Diagnosis: Pain in right hip[ICD10: M25.551] Diagnosis: Pain in left hip[ICD10: M25.552] Marcela Ha MD, [facility] CPT-4: 19127 05/13/2018 ([id number]) 16410 EST. PATIENT, LEVEL III Diagnosis: Myalgia[ICD10: M79.1] Diagnosis: Pain in right hip[ICD10: M25.551] Diagnosis: Pain in left hip[ICD10: M25.552] Marcela Ha MD, [facility] CPT-4: 03380 05/02/2018 ([id number]) 82682 EST. PATIENT, LEVEL IV Diagnosis: Essential (primary) hypertension[ICD10: I10] Diagnosis: Type 2 diabetes mellitus with hyperglycemia[ICD10: E11.65] Diagnosis: Major depressive disorder, single episode, moderate[ICD10: F32.1] Diagnosis: Myalgia[ICD10: M79.1] Marcela Ha MD, [facility] CPT-4: 62163 04/29/2018 ([id number]) 26776 EST. PATIENT, LEVEL IV Diagnosis: Type 2 diabetes mellitus with hyperglycemia[ICD10: E11.65] Diagnosis: Essential (primary) hypertension[ICD10: I10] Diagnosis: Major depressive disorder, single episode, moderate[ICD10: F32.1] Melida Ha MD, [facility] CPT-4: 16993 03/13/2018 ([id number]) 61403 EST. PATIENT, LEVEL III Diagnosis: Type 2 diabetes mellitus with hyperglycemia[ICD10: E11.65] Diagnosis: Bipolar disorder, current episode depressed, moderate[ICD10: F31.32] Diagnosis: Orthostatic hypotension[ICD10: I95.1] Marcela Ha MD, [facility] CPT-4: 73075 03/07/2018 ([id number]) 63490 EST. PATIENT, LEVEL IV Diagnosis: Type 2 diabetes mellitus with hyperglycemia[ICD10: E11.65] Diagnosis: Major depressive disorder, single episode, moderate[ICD10: F32.1] Diagnosis: Orthostatic hypotension[ICD10: I95.1] Diagnosis: Other fatigue[ICD10: R53.83] Marcela Ha MD, [facility] CPT-4: 29308 02/28/2018 47813 EST. PATIENT, LEVEL IV Diagnosis: Other fatigue[ICD10: R53.83] Diagnosis: Other malaise[ICD10: R53.81] Diagnosis: Gastro-esophageal reflux disease without esophagitis[ICD10: K21.9] Madeline Ha MD, [facility] CPT-4: 75005 02/13/2018 ([id number]) 78872 EST. PATIENT, LEVEL IV Diagnosis: Type 2 diabetes mellitus with foot ulcer[ICD10: E11.621] Diagnosis: Essential (primary) hypertension[ICD10: I10] Diagnosis: Gastro-esophageal reflux disease without esophagitis[ICD10: K21.9] Marcela Ha MD, [facility] CPT-4: 44687 01/29/2018 32206 EST. PATIENT, LEVEL III Diagnosis: Other malaise[ICD10: R53.81] Diagnosis: Other fatigue[ICD10: R53.83] Diagnosis: Pain in right shoulder[ICD10: M25.511] Diagnosis: Pain in left shoulder[ICD10: M25.512] Madeline Ha MD, [facility] CPT-4: 13823 08/27/2017 ([id number]) 90773 EST. PATIENT, LEVEL IV Diagnosis: Essential (primary) hypertension[ICD10: I10] Diagnosis: Type 2 diabetes mellitus with hyperglycemia[ICD10: E11.65] Diagnosis: VACCIN FOR INFLUENZA[ICD10: Z23] Melida Ha MD, [facility] CPT-4: 19543 08/16/2017 65639 EST. PATIENT, LEVEL III Diagnosis: Zoster without complications[ICD10: B02.9] Madeline Ha MD, [facility] CPT-4: 50338 07/26/2017 ([id number]) 53500 EST. PATIENT, LEVEL III Diagnosis: Cellulitis of right lower limb[ICD10: L03.115] Marcela Ha MD, [facility] CPT-4: 14135 07/03/2017 60571 EST. PATIENT, LEVEL II Diagnosis: Laceration without foreign body of left forearm, initial encounter[ ICD10: S51.812A] Marcela Ha MD, [facility] CPT-4: 89000 06/29/2017 ([id number]) 64080 EST. PATIENT, LEVEL III Diagnosis: Cellulitis of right lower limb[ICD10: L03.115] Diagnosis: Type 2 diabetes mellitus with foot ulcer[ICD10: E11.621] Marcela Ha MD , [facility] CPT-4: 39115 06/18/2017 ([id number]) 23722 EST. PATIENT, LEVEL IV Diagnosis: Cellulitis of right lower limb[ICD10: L03.115] Diagnosis: Acute laryngopharyngitis[ICD10: J06.0] Diagnosis: Gastro-esophageal reflux disease without esophagitis[ICD10: K21.9] Marcela Ha MD, [facility] CPT-4: 83982 06/07/2017 ([id number]) 35866 EST. PATIENT, LEVEL III Diagnosis: Type 2 diabetes mellitus with hyperglycemia[ICD10: E11.65] Diagnosis: Insect bite (nonvenomous) of abdominal wall, initial encounter[ICD10 : S30.861A] Marcela Ha MD, [facility] CPT-4: 10865 05/17/2017 ([id number]) 40853 EST. PATIENT, LEVEL III Diagnosis: Allergic contact dermatitis due to plants, except food[ICD10: L23.7] Melida Ha MD, [facility] CPT-4: 38585 05/04/2017 ([id number]) 86657 EST. PATIENT, LEVEL III Diagnosis: Essential (primary) hypertension[ICD10: I10] Marcela Ha MD, [facility] CPT-4: 01347 03/15/2017 ([id number]) 82131 EST. PATIENT, LEVEL III Diagnosis: Cough[ICD10: R05] Diagnosis: Essential (primary) hypertension[ICD10: I10] Marcela Ha MD, [facility] CPT-4: 77023 03/01/2017 ([id number]) 34027 EST. PATIENT, LEVEL III Diagnosis: Cough[ICD10: R05] Diagnosis: Nasal congestion[ICD10: R09.81] Diagnosis: Acute recurrent maxillary sinusitis[ICD10: J01.01] Marcela Ha MD, [facility] CPT-4: 15771 02/16/2017 ([id number]) 16238 EST. PATIENT, LEVEL III Diagnosis: Type 2 diabetes mellitus with hyperglycemia[ICD10: E11.65] Marcela Ha MD, [facility] CPT-4: 47687 02/12/2017 ([id number]) 66344 EST. PATIENT, LEVEL IV Diagnosis: Type 2 diabetes mellitus with hyperglycemia[ICD10: E11.65] Diagnosis: Muscle weakness (generalized)[ICD10: M62.81] Diagnosis: Disorientation, unspecified[ICD10: R41.0] Marcela Ha MD, [facility] CPT-4: 59265 02/05/2017 ([id number]) Patient admitted to the hospital from clinic (NO CHARGE) Diagnosis: Type 2 diabetes mellitus with hyperglycemia[ICD10: E11.65] Diagnosis: Disorientation, unspecified[ICD10: R41.0] Diagnosis: Muscle weakness (generalized)[ICD10: M62.81] Marcela Ha MD, [facility] CPT-4: 77738A 01/29/2017 ([id number]) Miscellaneous no charge Diagnosis: Cellulitis of right lower limb[ICD10: L03.115] Marcela Ha MD, [facility] CPT-4: 37826 10/13/2016 ([id number]) Miscellaneous no charge Diagnosis: Type 2 diabetes mellitus with foot ulcer[ICD10: E11.621] Diagnosis: Pain in right foot[ICD10: M79.671] Marcela Ha MD, [facility] CPT-4: 47535 10/09/2016 27063 EST. PATIENT, LEVEL II Diagnosis: Cellulitis of right lower limb[ICD10: L03.115] Marcela Ha MD, [facility] CPT-4: 40361 10/06/2016 ([id number]) 40685 EST. PATIENT, LEVEL IV Diagnosis: Low back pain[ICD10: M54.5] Diagnosis: Other deformities of toe(s) (acquired), left foot[ICD10: M20.5X2] Diagnosis: Type 2 diabetes mellitus with foot ulcer[ICD10: E11.621] Marcela Ha MD , [facility] CPT-4: 35769 07/18/2016 ([id number]) 26369 EST. PATIENT, LEVEL III Diagnosis: Type 2 diabetes mellitus with hyperglycemia[ICD10: E11.65] [facility] CPT-4: 99131 06/22/2016 ([id number]) 52359 EST. PATIENT, LEVEL IV Diagnosis: Type 2 diabetes mellitus with hyperglycemia[ICD10: E11.65] Diagnosis: Mixed hyperlipidemia[ICD10: E78.2] Diagnosis: Other hemoglobinopathies[ICD10: D58.2] Marcela Ha MD, [facility] CPT-4: 29608 05/23/2016 ([id number] 68232 EST. PATIENT, LEVEL IV Diagnosis: Type 2 diabetes mellitus with other specified complication[ICD10: E11.69] Diagnosis: Dehydration[ICD10: E86.0] [facility] CPT-4: 08614 05/15/2016 ([id number]) OFFICE VISIT, NEW - LEVEL 3 Diagnosis: Allergic contact dermatitis due to plants, except food[ICD10: L23.7] Madeline Ha MD, [facility] CPT-4: 96142 01/20/2016 Plan of Care Planned Activity Notes Codes Status Date Referral: Niko Mantilla Referral Completed 11/04/2018 Visit Plan: Pneumonia, cough - recent diagnosis of Moraxella Cattharalis - with sensitivity to levaquin - will give 2 wks of levaquin since he had improvement but no full resolution of symptoms. 10/30/2018 Patient Education: Patient Medication Summary Completed 10/30/2018 Visit Plan: Right hand-joint pain and swelling -negative for gout -treated for cellulitis right 2nd mcp joint -now having difficulty with long finger "locking" -Dr Ha in to evaluate patient and tape index and long finger in place-refer to Dr Mantilla for evaluation 10/24/2018 Appointment: Marcela Oshea WPtel: [address] [place], [place] [phone] (30 min) [facility] 10/24/2018 Patient Education: Patient Medication Summary Completed 10/24/2018 Care Plan: Referral Order SNOMED-CT : [id number] Pending 10/24/2018 Visit Plan: Hypotension - discussed [...] controlled. 10/23/2018 Appointment: [facility] [phone] [facility] [place] (15 min) Moderate 10/23/2018 Patient Education: [...] and plan. 10/21/2018 Appointment[facility] [phone] [phone] [place] (30 min) Complex 10/21/2018 Patient Education: [...] warmth, discharge. 10/17/2018 Appointment: Madeline Kennedy WPtel: [phone] [phone] (15 min) Moderate 10/17/2018 Patient Education: Patient [...] acutely worsen. 10/14/2018 Appointment: Marcela Oshea WPtel: [phone] [phone] (15 min) Moderate 10/14/2018 Patient Education: Patient Medication Summary Completed 10/14/2018 Care Plan: CHEST X-RAY 2VW FRONTAL&LATL LOINC : 52975-2 Pending 10/14/2018 Visit Plan: URI - Pt [...] spray. 09/30/2018 Appointment: Madeline Kennedy WPtel: [phone] [phone] (15 min) Moderate 09/30/2018 Patient Education: Patient [...] A1C 09/09/2018 Appointment: Marcela Oshea WPtel: [phone] (15 min) Moderate 09/09/2018 Patient Education: Patient Medication Summary Completed 09/09/2018 Patient Education: Patient Medication Summary Completed 09/06/2018 Patient Education: Cholesterol Management Completed 09/06/2018 Care Plan: Comp Metabolic Pending 09/06/2018 Care Plan: Cbc With Differential Pending 09/06/2018 Care Plan: %Hba1C LOINC : 05080-7 Pending 09/06/2018 Care Plan: Tsh Pending 09/06/2018 Care Plan: Lipid Pending 09/06/2018 Appointment: Marcela Oshea WPtel: [facility]5 [phone] (15 min) Moderate 08/26/2018 Appointment: Marcela Oshea WPtel: [address] [place], [place] [phone] (15 min) Moderate 08/23/2018 Visit Plan: Hypertension [...] shot given today in clinic. 07/22/2018 Appointment: Meldia Ha WPtel: [facility] (15 min) Moderate 07/22/2018 Patient [...] insomnia. 07/16/2018 Appointment: Marcela Oshea WPtel: [facility]3 [phone] (30 min) Complex 07/16/2018 Patient Education: Patient Medication Summary Completed 07/16/2018 Visit Plan: cough - improved - notify clinic if symptoms do not completely resolve, or with any questions or concerns. 07/01/2018 Appointment: [facility] [phone] [facility] (15 min) Moderate 07/01/2018 Patient Education: Patient [...] spray. 06/28/2018 Appointment: Madeline Kennedy WPtel: [phone] [facility] (15 min) Moderate 06/28/2018 Patient Education: Patient Medication Summary Completed 06/28/2018 Patient Education: Patient Medication Summary Completed 06/21/2018 Care Plan: Annabel RICKS [place] Pending 06/21/2018 Visit Plan: Diabetes Mellitus [...] home. 06/18/2018 Appointment: Melida Ha WPtel: [phone] [facility] (15 min) Moderate 06/18/2018 Patient Education: [...] improves. 06/04/2018 Appointment: Melida Ha WPtel: [phone] [facility] (15 min) Moderate 06/04/2018 Patient Education: [...] allow for greater blood glucose control. Joint zkhm-tibfxeak-abmczuo- symptoms have improved -stop meloxicam due to upset stomach-call if symptoms return 05/13/2018 Appointment: Marcela Oshea WPtel: [phone] [phone] (30 min) Complex 05/13/2018 Patient Education: Patient Medication Summary Completed 05/13/2018 Visit Plan: Bilateral hip rezi-lpwkcdqe-jqdwatl IM injection administered today for c/o continued myalgia/arthralgia. Patient to start taking Meloxicam 15mg PO daily. Advised to return to clinic if symptoms do not improve. 05/02/2018 Appointment: Marcela Oshea WPtel: [phone] [phone] (30 min) Complex 05/02/2018 Patient Education: [...] readings at home. Diabetes Mellitus -check labs Pynocnlw-orrtiky-xsvp bite-rx for doxycycline-follow up in 2 weeks 04/29/2018 Appointment: Marcela Oshea WPtel: [phone] [phone] [place] (15 min) Moderate 04/29/2018 Patient Education: Patient Medication Summary Completed 04/29/2018 Appointment: Melida Ha WPtel: [phone] [facility] [place] (15 min) Moderate 04/15/2018 Appointment: Marcela Oshea WPtel: [phone] [phone] [place] (30 min) Complex 03/21/2018 Visit Plan: [...] cymbalta 03/13/2018 Appointment: Melida Ha WPtel: [phone] [facility] [place] (30 min) Complex 03/13/2018 Patient Education: Patient Medication Summary Completed 03/13/2018 Visit Plan: DM-continue same medications-monitor blood sugars routinely as directed -rx for new glucometer and test strips provided Bipolar-currently depressed-patient start on vraylar-follow up in 2 weeks, sooner if needed. Patient and verbalied understanding of plan. Hypotension- stay off losartan 03/07/2018 Appointment: Marcela Oshea WPtel: [facility]4 [phone] (30 min) Complex 03/07/2018 Patient Education: Patient Medication Summary Completed 03/07/2018 Appointment: Melida Ha WPtel: [facility] (15 min) Moderate 03/04/2018 Visit [...] patient. 02/28/2018 Appointment: Marcela Oshea WPtel: [phone] (30 min) Complex 02/28/2018 Patient Education: Patient [...] sugars- patient sent for labs today HTN-low bsobv-zdiwwoc-pfuxz labs Callus of foot and fissue of [...] improving. 01/29/2018 Appointment: [facility] [phone] [phone] (30 min) Complex 01/29/2018 Patient Education: Patient Medication Summary Completed 01/29/2018 Care Plan: Comp Metabolic Cancelled 01/29/2018 Care Plan: Cbc With Differential Cancelled 01/29/2018 Care Plan: %Hba1C LOINC : 51300-9 Cancelled 01/29/2018 Care Plan: Referral Order SNOMED-CT : [id number] Cancelled 01/29/2018 Visit Plan: Fatigue, malaise, joint [...] concerns. 08/27/2017 Appointment: Mad[facility] Kennedy [facility]el[facility] [phone] [facility] (15 min) Moderate [...] today - 08/16/2017 Appointment: Melida Ha WPtel: [phone] [facility] [place] (30 min) Complex 08/16/2017 Patient Education: Patient Medication Summary Completed 08/16/2017 Patient Education: Obesity Completed 08/16/2017 Appointment: Madeline Kennedy WPtel: [phone] [phone] (30 min) Complex 08/07/2017 Visit Plan: Shingles [...] Appointment: Madeline Kennedy WPtel: [phone] [facility] [place] (15 min) Moderate 07/26/2017 Patient Education: Patient Medication Summary Completed 07/26/2017 Visit Plan: Cellulitis right foot-cultured today in the office-home health to reapply wound vac--appt with wound care on to evaluate for debridement- 07/03/2017 Appointment: Marcela Oshea WPtel: [phone] [phone] [place] (30 min) Complex 07/03/2017 Patient Education: Patient Medication Summary Completed 07/03/2017 Visit Plan: Abrasion left arm - Pt was instructed to keep the wound clean, wash with antibacterial soap, use triple antibiotic ointment, call if redness, pustular drainage, or any other acute concerns. 06/29/2017 Appointment: Marcela Oshea WPtel: [address] [place], [place] [phone] (15 min) Moderate 06/29/2017 Patient Education: Patient [...] of plan. 06/18/2017 Appointment: Marcela Oshea WPtel: [facility] [place] [phone] (15 min) Moderate 06/18/2017 Patient Education: Patient [...] diet-start prilosec 06/07/2017 Appointment: Marcela Oshea WPtel: [address] [place], [place] [phone] (10 min) Simple 06/07/2017 Patient Education: Patient [...] bite-continue doxycycline 05/17/2017 Appointment: Marcela Oshea WPtel: [phone] [phone] (30 min) Complex 05/17/2017 Patient Education: [...] if you want anai edge called into [facility]. 05/04/2017 Appointment: Marcela Oshea WPtel: [address] [place], [place] [phone] (30 min) Complex 05/04/2017 Patient Education: Patient [...] Cough-resolved 03/15/2017 Appointment: Marcela Oshea WPtel: [phone] (15 min) Moderate 03/15/2017 Patient Education: Patient Medication Summary Completed 03/15/2017 Appointment: Marcela Oshea WPtel: [phone] (30 min) Complex 03/12/2017 Visit Plan: Feng [...] as discussed 02/16/2017 Appointment: Marcela Oshea WPtel: [address] [place] [address] (15 min) Moderate 02/16/2017 Patient Education: Patient [...] to become less controlled. 02/12/2017 Appointment: Marcela Osheatel: [address] [place] [address] (30 min) Complex 02/12/2017 Patient Education: Patient Medication Summary Completed 02/12/2017 Appointment: Marcela Oshea WPtel: [address] [place] [address] (30 min) Complex 02/06/2017 Visit Plan: Diabetes [...] today but will consider 02/05/2017 Appointment: Marcela Oshea: [phone] [place] (30 min) Complex 02/05/2017 Patient Education: Patient Medication Summary Completed 02/05/2017 Appointment: Marcela Oshea WPtel: [phone] [phone] [place] (30 min) Complex 01/30/2017 Visit Plan: Acute confusion-uncontrolled diabetes- chronically noncompliant with treatment and stopped his insulin several months ago-r/o stroke vs DKA-Dr Ha in to evaluate patient-plan to admit for further work up and treatment-patient's called and she transported him to the hospital 01/29/2017 Appointment: Marcela Oshea WPtel: [phone] [place] (30 min) Complex 01/29/2017 Patient Education: Patient Medication Summary Completed 01/29/2017 Patient Education: Obesity Completed 01/29/2017 Visit Plan: Right foot pain-MRI shows foreign body-appt with Dr Grewal for evaluation on Sunday. 10/13/2016 Appointment: Marcela Oshea WPtel: [phone] [place] (15 min) Moderate 10/13/2016 Patient Education: Patient Medication Summary Completed 10/13/2016 Appointment: Marcela Oshea WPtel: [address] [place], [place] [phone] [place] (30 min) Complex 10/12/2016 Visit Plan: Right foot ahax-uaxjenwm-dauxt washer dropped on foot-xray negative but pain continues to increase-recommend MRI of foot for further evaluation-refer to wound care for lesions on right foot, patient has diabetes and history of osteomyelitis-culture obtained today-continue oral abx- follow up in the office on , sooner if needed 10/09/2016 Visit Plan: Right foot llys-cccpootu-mahsx washer dropped on foot-xray negative but pain continues to increase-recommend MRI of foot for further evaluation-refer to wound care for lesions on right foot, patient has diabetes and history of osteomyelitis-culture obtained today-continue oral abx- follow up in the office on , sooner if needed 10/09/2016 Visit Plan: Right foot khec-sdojiwjf-rjctt washer dropped on foot-xray negative but pain continues to increase-recommend MRI of foot for further evaluation-refer to wound care for lesions on right foot, patient has diabetes and history of osteomyelitis-culture obtained today-continue oral abx- follow up in the office on , sooner if needed 10/09/2016 Appointment: Marcela Oshea WPtel: [address] [place], [place] [phone] (30 min) Complex 10/09/2016 Patient Education: Patient Medication Summary Completed 10/09/2016 Visit Plan: Cellulitis - continue with oral antibiotics as previously directed, return to clinic as previously directed, call for acute change in symptoms, worsening redness, warmth, discharge. 10/06/2016 Appointment: Marcela Oshea WPtel: [address] [place], [place] [phone] (10 min) Simple 10/06/2016 Patient Education: Patient Medication Summary Completed 10/06/2016 Appointment: Marcela Oshea WPtel: [address] [place], [place] [phone] (30 min) Complex 08/24/2016 Referral: Sun Glynn Referral Completed 07/21/2016 Visit Plan: Low back pain- history of spinal fusion- patient for xray lumbar spine-RX sent to [facility] and instructed on use-topical voltaren samples provided and instructed on use. Ok to use tylenol as needed as well. The patient is to call the office if the pain is worsening or does not improve. Pressure ulcer left 4th toe-refer to Dr Glynn for evaluation 07/18/2016 Appointment: Marcela Oshea WPtel: [address] [place], [place] [phone] (30 min) Complex 07/18/2016 Patient Education: Patient Medication Summary Completed 07/18/2016 Patient Education: Obesity Completed 07/18/2016 Care Plan: Referral Order SNOMED-CT : [id number] Cancelled 07/18/2016 Visit Plan: Diabetes Mellitus - [...] glucose control. 06/22/2016 [facility]ment: [phone] ([facility]) Complex [...] today 05/23/2016 App[facility]ment: [phone] (30 min) Complex [...] of plan. 05/15/2016 Appointment: Marcel[facility] Oshea WPtel[phone] (15 min) Moderate [...] Glynn Referral Appointment Requested Instructions Comment . Pneumonia, cough - recent diagnosis of Moraxella Cattharalis - with sensitivity to levaquin - will give 2 wks of levaquin since he had improvement but no full resolution of symptoms. . Diabetes Mellitus - I have recommended [...] wound care on to evaluate for debridement- levaquin re-culture wound refer to wound care [...] increase in pain, worsening redness, warmth, discharge. steroid shot today flonase and mucinex over [...] for fracture from injury . 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 Low back pain- history of spinal fusion-patient for xray lumbar spine-RX sent to [facility] and instructed on use-topical voltaren samples [...] if you want anai edge called into [facility]. REPEAT LABS BEFORE YOUR NEXT [...] for fracture from injury . Right foot amlb-jarjpors-muolo washer dropped on foot-xray negative but pain [...] for fracture from injury . Right foot wdpi-iamphthc-wtmtz washer dropped on foot-xray negative but pain continues to increase-recommend MRI of foot for further evaluation-refer to wound care for lesions on right foot, patient has diabetes and history of osteomyelitis-culture obtained today-continue oral abx-follow up in the office on , sooner if needed TOUJEO 25 UNITS DAILY. NOTIFY CLINIC IF [...] are starting to become less controlled. . Bilateral hip vknr-tzlffoig-dzvofay IM injection administered today for c/o continued myalgia/arthralgia. Patient to start taking Meloxicam 15mg PO daily. Advised to return to clinic if symptoms do not improve. . DM-weight loss-not checking blood sugars-patient sent for labs today HTN-low dnusc-eyconzn-isqug labs Callus of foot and fissue of [...] readings are starting to become less controlled. Usnsntsxj-vrnudphm-kiltgeas to monitor Generalized weakness-refer for PT-patient refuses [...] allow for greater blood glucose control. Joint eaak-eziqphbk-ayhrxfa-symptoms have improved -stop meloxicam due to upset [...] eval of the patient - I, Dr. aH, personally evaluated the patient with the nurse [...] readings at home. Diabetes Mellitus -check labs Xpophrnw-sxadvmg-whgy bite-rx for doxycycline-follow up in 2 weeks [...] do not show improvement. DM-check Hgb A1C culture of right foot strep swab prilosec [...]
--- NOTE | 2019-01-01 15:00 | Diagnostic Imaging Report ---
PROCEDURE: CT angiography of the chest with contrast. TECHNIQUE: Multiple contiguous axial images were obtained through the chest after uneventful bolus administration of intravenous contrast. 2D reconstructed CTA MIP acquisitions were also performed. INDICATION: Chest pain. FINDINGS: The previous CT chest exam of 11/14/2018 failed to show any sign of an acute cardiopulmonary abnormality. On this study however, there is now approximately 1 cm pericardial effusion. The heart size itself has not changed significantly, but the heart does seem to be borderline enlarged. Dense coronary artery calcifications involving the distal LAD are again noted. There is no defect within the pulmonary arteries to indicate a pulmonary mass and there is no sign of aneurysm of the aorta or of dissection. The lungs remain generally clear. There is no evidence for failure, pneumonia or for pleural effusion. There is no mediastinal or hilar adenopathy. The thyroid gland was visualized as unremarkable. The sections through the upper abdomen fail to show any sign of an acute abnormality. The bone windows are unremarkable for fracture or for destructive lesion. IMPRESSION: 1. In the interval since the prior exam, pericardial effusion has developed. The heart itself may be slightly larger than noted previously. Coronary artery calcifications are again noted. 2. There is no acute cardiopulmonary abnormality identified otherwise. 3. These results were discussed with YAIR Chopra. Dictated by: Dictated on workstation # [id number]
--- OUTSIDE RECORDS SUMMARY | 2019-01-01 15:03 | XMS REPORT | CCD ---
Author Author Madeline Kennedy MD, [facility] Address [address] [place] [address] Phone Care Team Providers Care Technician Automatic Name Role Phone PP Unavailable CCM Unavailable Summary Purpose Interface Exchange Insurance Providers Payer name Policy type / Coverage type Covered democrat ID Effective Begin Date Effective End Date Blue Cross Blue Shield [facility] Blue Cross/Blue Shield [id number] Unknown Family history Father Diagnosis Age At Onset Hyperlipidemia Unknown Heart Attack Unknown Mother Diagnosis Age At Onset Hypertension Unknown Social History Social History Element Codes Description Effective Dates Marital status Unknown Mignon 01/20/2016 Number of children Unknown 4 01/20/2016 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/[address]: 631627801 Never smoker 01/20/[address]: 195422563 Never drinks alcohol 01/20/2016 Allergies, Adverse Reactions, [...] Fill Instructions Levaquin 500 mg tablet RxNorm: 870105 1 Tablet(s) PO daily 11/12/2018 Active valsartan 80 mg tablet RxNorm: 040673 1/2 Tablet(s) PO daily 04/20/2019 Active doxycycline hyclate 100 mg tablet RxNorm: 3455634 1 Tablet(s) PO BID 10/21/2018 10/27/2018 Inactive ketorolac 60 mg/2 mL intramuscular solution RxNorm: 2087055 Milliliter(s) IM 10/21/2018 10/21/2018 Inactive Levaquin 500 mg tablet RxNorm: 928429 1 Tablet(s) PO daily 10/23/2018 Inactive albuterol sulfate 2.5 mg/3 mL (0.083 %) solution for nebulization RxNorm: 803166 3 Milliliter(s) INH UD 10/14/2018 No Stop Date Active Tessalon Perles 100 mg capsule RxNorm: 291612 1-2 Capsule(s) PO TID PRN 10/14/2018 No Stop Date Active Levaquin 500 mg tablet RxNorm: 156110 1 Tablet(s) PO daily 08/201810/16/2018 Inactive Coreg 6.25 mg tablet RxNorm: 751746 TAKE ONE TABLET BY MOUTH TWICE A DAY 09/30/2018 03/28/2019 Active albuterol sulfate 2.5 mg/3 mL (0.083 %) solution for nebulization RxNorm: 754126 3 Milliliter(s) INH UD 09/30/201807/2018 Inactive Kenalog 40 mg/mL suspension for injection RxNorm: 1202568 1.5 Milliliter(s) Inj 09/30/2018 09/30/2018 Inactive Keflex 500 mg capsule RxNorm: 529056 1 Capsule(s) PO TID 201710/03/2018 Inactive prednisone 20 mg tablet RxNorm: 305745 2 Tablet(s) PO daily 09/29/2018 Inactive Kenalog 40 mg/mL suspension for injection RxNorm: 9498882 Milliliter(s) Inj 09/11/2018 09/11/2018 Inactive Zyrtec 10 mg tablet RxNorm: 7314710 1 Tablet(s) PO daily 09/0910/08/2018 Inactive Keflex 500 mg capsule RxNorm: 575767 1 Capsule(s) PO TID 201709/15/2018 Inactive Tresiba FlexTouch U-200 insulin 200 unit/mL (3 mL) subcutaneous pen RxNorm: 2521320 50 Unit(s) SQ daily 08/30/2018 08/29/2018 Inactive please give him 30 day supply Tresiba FlexTouch U-200 insulin 200 unit/mL (3 mL) subcutaneous pen RxNorm: 3384877 50 Unit(s) SQ daily 08/30/2018 09/28/2018 Inactive please give him 30 day supply Novolog Flexpen U-100 Insulin aspart 100 unit/mL subcutaneous RxNorm: 3995224 8 Unit(s) SQ AC 08/13/2018 No Stop Date Active Novolog Flexpen U-100 Insulin aspart 100 unit/mL subcutaneous RxNorm: 6778552 8 Unit(s) SQ AC 07/22/20182017 Inactive this is an update on his medication Novolog Flexpen U-100 Insulin aspart 100 unit/mL subcutaneous RxNorm: 6642424 12 Unit(s) SQ AC 07/05/20182017 Inactive this is an update on his medication Toujeo SoloStar U-300 Insulin 300 unit/mL (1.5 mL) subcutaneous pen RxNorm: 5156961 INJECT 50 UNITS UNDER THE SKIN DAILY 07/01/2018 08/29/2018 Inactive Mucinex 600 mg tablet, extended release RxNorm: 468457 1 Tablet(s) PO BID 06/28/2018 07/04/2018 Inactive Zofran 4 mg tablet RxNorm: 254592 1 Tablet(s) PO TID as needed nausea 06/28/2018 07/02/2018 Inactive Kenalog 40 mg/mL suspension for injection RxNorm: 8435443 Milliliter(s) Inj 06/28/2018 06/28/2018 Inactive Flonase Allergy Relief 50 mcg/actuation nasal spray, suspension RxNorm: 3383810 1 [place] NASAL BID 06/28/20182017 Inactive Lyrica 50 mg capsule RxNorm: 499490 Capsule(s) PO daily 201707/07/2018 Inactive Novolog Flexpen U-100 Insulin aspart 100 unit/mL subcutaneous RxNorm: 4133603 10 Unit(s) SQ AC 06/18/20182017 Inactive this is an update on his medication Lasix 20 mg tablet RxNorm: 019179 1 Tablet(s) PO BIW 201707/02/2018 Inactive atorvastatin 80 mg tablet RxNorm: 800519 1 Tablet(s) PO QHS 04/201812/06/2018 Active clonazepam 1 mg tablet RxNorm: 470018 2 Tablet(s) PO HS 201706/04/2019 Active clonazepam 1 mg tablet RxNorm: 993544 2 Tablet(s) PO HS as needed 06/10/2018 06/09/2018 Inactive Lyrica 50 mg capsule RxNorm: 739329 Capsule(s) PO daily 201707/08/2018 Inactive Lasix 20 mg tablet RxNorm: 571680 1 Tablet(s) PO TIW 201706/11/2018 Inactive Toujeo SoloStar U-300 Insulin 300 unit/mL (1.5 mL) subcutaneous pen RxNorm: 2476628 50 Unit(s) SQ daily 05/07/2018 06/30/2018 Inactive meloxicam 15 mg tablet RxNorm: 351996 15 Milligram(s) PO daily 05/02/2018 05/12/2018 Inactive ketorolac 30 mg/mL injection solution RxNorm: 448315 2 Milliliter(s) Inj 05/02/2018 05/02/2018 Inactive Toujeo SoloStar U-300 Insulin 300 unit/mL (1.5 mL) subcutaneous pen RxNorm: 8510464 45 Unit(s) daily 04/29/2018 Inactive clonazepam 1 mg tablet RxNorm: 137494 1 Tablet(s) PO Q8 as needed 04/29/2018 06/09/2018 Inactive doxycycline hyclate 100 mg tablet RxNorm: 9775009 1 Tablet(s) PO BID 04/29/2018 05/12/2018 Inactive Cymbalta 30 mg capsule,delayed release RxNorm: 362827 1 Capsule(s) PO QAM 03/13/2018 10/08/2018 Inactive Lexapro 10 mg tablet RxNorm: 283212 1 Tablet(s) PO QPM 201703/03/2018 Inactive Toujeo SoloStar U-300 Insulin 300 unit/mL (1.5 mL) subcutaneous pen RxNorm: 0561764 20 Unit(s) daily 02/28/2018 Inactive Protonix 40 mg tablet,delayed release RxNorm: 833967 1 Tablet(s) PO daily 01/29/2018 06/09/2018 Inactive clonazepam 1 mg tablet RxNorm: 135644 1 Tablet(s) PO Q8 as needed 12/12/2017 03/10/2018 Inactive Tamiflu 75 mg capsule RxNorm: 620474 1 Capsule(s) PO BID 201712/03/2017 Inactive doxycycline hyclate 100 mg capsule RxNorm: 9155885 1 Capsule(s) PO BID 09/07/2017 09/20/2017 Inactive doxycycline hyclate 100 mg capsule RxNorm: 3330932 1 Capsule(s) PO BID 08/27/2017 09/06/2017 Inactive prednisone 20 mg tablet RxNorm: 249961 2 Tablet(s) PO daily 08/31/2017 Inactive clopidogrel 75 mg tablet RxNorm: 485370 1 Tablet(s) PO daily 06/09/2018 Inactive atorvastatin 40 mg tablet RxNorm: 084423 1 Tablet(s) PO QHS 02/27/2018 Inactive losartan 25 mg tablet RxNorm: 575379 TAKE ONE TABLET BY MOUTH DAILY 08/22/2017 06/09/2018 Inactive Toujeo SoloStar 300 unit/mL (1.5 mL) subcutaneous insulin pen RxNorm: 4506641 45 Unit(s) daily 08/17/2017 08/20/2017 Inactive mupirocin 2 % topical ointment RxNorm: 474832 1 Application TOP TID to the lesions on chest 08/16/2017 08/25/2017 Inactive Toujeo SoloStar 300 unit/mL (1.5 mL) subcutaneous insulin pen RxNorm: 3795335 40 Unit(s) daily 08/16/2017 08/16/2017 Inactive valacyclovir 1 gram tablet RxNorm: 726546 1 Tablet(s) PO TID 08/01/2017 Inactive clonazepam 1 mg tablet RxNorm: 369648 1 Tablet(s) PO Q8 as needed 07/03/2017 09/30/2017 Inactive Levaquin 500 mg tablet RxNorm: 238467 1 Tablet(s) PO daily 06/25/2017 Inactive Levaquin 500 mg tablet RxNorm: 730562 1 Tablet(s) PO daily 06/21/2017 Inactive losartan 25 mg tablet RxNorm: 411487 1 Tablet(s) PO daily 201608/16/2017 Inactive nystatin 100,000 unit/mL oral suspension RxNorm: 827246 5 Milliliter(s) PO QID Swish et swallow 06/18/2017 06/17/2017 Inactive nystatin 100,000 unit/mL oral suspension RxNorm: 737079 5 Milliliter(s) PO QID Swish et swallow 06/18/2017 06/27/2017 Inactive Cipro 500 mg tablet RxNorm: 884706 1 Tablet(s) PO BID 201606/18/2017 Inactive Cipro 500 mg tablet RxNorm: 554451 1 Tablet(s) PO BID 201606/11/2017 Inactive Toujeo SoloStar 300 unit/mL (1.5 mL) subcutaneous insulin pen RxNorm: 8045441 INJECT 10 UNITS UNDER THE SKIN DAILY 06/12/2017 08/15/2017 Inactive Keflex 500 mg capsule RxNorm: 716363 1 Capsule(s) PO TID 201606/13/2017 Inactive doxycycline hyclate 100 mg capsule RxNorm: 8794337 1 Capsule(s) PO BID 05/17/2017 05/21/2017 Inactive doxycycline hyclate 100 mg capsule RxNorm: 7894323 1 Capsule(s) PO BID 05/11/2017 05/16/2017 Inactive losartan 25 mg tablet RxNorm: 580617 1 Tablet(s) PO daily 201606/17/2017 Inactive atorvastatin 40 mg tablet RxNorm: 423964 1 Tablet(s) PO daily 03/01/2017 08/23/2017 Inactive clopidogrel 75 mg tablet RxNorm: 350957 1 Tablet(s) PO daily 08/23/2017 Inactive Flonase Allergy Relief 50 mcg/actuation nasal spray, suspension RxNorm: 0310511 2 [place] NASAL daily 02/16/20172016 Inactive Augmentin 875 mg-125 mg tablet RxNorm: 859214 1 Tablet(s) PO BID 02/16/2017 02/22/2017 Inactive GET PROBIOTIC TO TAKE WHILE ON ABX Tamiflu 75 mg capsule RxNorm: 897716 1 Capsule(s) PO BID 201602/20/2017 Inactive ceftriaxone 500 mg solution for injection RxNorm: 5849872 1 Milliliter(s) Inj 02/16/2017 02/16/2017 Inactive Kenalog 40 mg/mL suspension for injection RxNorm: 7105618 1 Milliliter(s) Inj 02/16/2017 02/16/2017 Inactive Toujeo SoloStar 300 unit/mL (1.5 mL) subcutaneous insulin pen RxNorm: 5381598 25 Unit(s) SQ QAM 02/12/2017 06/10/2017 Inactive Toujeo SoloStar 300 unit/mL (1.5 mL) subcutaneous insulin pen RxNorm: 4021971 10 Unit(s) SQ QAM 02/05/2017 02/11/2017 Inactive lisinopril 10 mg tablet RxNorm: 015382 1 Tablet(s) PO daily 02/28/2017 Inactive atorvastatin 40 mg tablet RxNorm: 665053 1 Tablet(s) PO daily 02/01/2017 02/28/2017 Inactive doxycycline hyclate 100 mg capsule RxNorm: 7358756 1 Capsule(s) PO BID 02/01/2017 02/10/2017 Inactive clonazepam 1 mg tablet RxNorm: 006509 1 Tablet(s) PO Q8 as needed 10/09/2016 01/05/2017 Inactive ceftriaxone 1 gram solution for injection RxNorm: 5092875 Inj 10/06/2016 10/06/2016 Inactive cyclobenzaprine 10 mg tablet RxNorm: 029775 1/2-1 Tablet(s) PO TID PRN 07/18/2016 01/28/2017 Inactive clonazepam 1 mg tablet RxNorm: 057947 1 Tablet(s) PO Q8 as needed 05/31/2016 05/29/2016 Inactive clonazepam 1 mg tablet RxNorm: 573025 1 Tablet(s) PO Q8 as needed 05/31/2016 08/28/2016 Inactive Toujeo SoloStar 300 unit/mL (1.5 mL) subcutaneous insulin pen RxNorm: 2848312 10 Unit(s) SQ daily 05/23/2016 01/28/2017 Inactive Crestor 10 mg tablet RxNorm: 581215 1 Tablet(s) PO QHS 201501/28/2017 Inactive Crestor 10 mg tablet RxNorm: 141545 1 Tablet(s) PO QHS 201505/18/2016 Inactive clonazepam 1 mg tablet RxNorm: 713070 1 Tablet(s) PO Q8 as needed 04/25/2016 05/30/2016 Inactive prednisone 20 mg tablet RxNorm: 609700 3 Tablet(s) PO daily 06/201602/10/2016 Inactive prednisone 20 mg tablet RxNorm: 143285 3 Tablet(s) PO daily 06/201605/14/2016 Inactive Kenalog 40 mg/mL suspension for injection RxNorm: 3862212 Milliliter(s) Inj 01/20/2016 01/20/2016 Inactive aspirin 81 mg tablet,delayed release RxNorm: 191826 1 Tablet(s) PO daily No Start Date Active Brilinta 90 mg tablet RxNorm: 1586608 1 Tablet(s) PO BID No Start Date Active acetaminophen 500 mg tablet RxNorm: 147796 1-2 Tablet(s) PO as needed No Start Date Active clopidogrel 75 mg tablet RxNorm: 162293 1 Tablet(s) PO daily No Start Date 02/28/2017 Inactive Novolog Flexpen U-100 Insulin aspart 100 unit/mL subcutaneous RxNorm: 4175539 5 units with breakfast lunch and 10 supper Unit(s) SQ No Start Date 06/17/2018 Inactive clonazepam 1 mg tablet RxNorm: 002962 1 Tablet(s) PO QHS No Start Date 04/24/2016 Inactive Coreg 6.25 mg tablet RxNorm: 811434 1 Tablet(s) PO BID No Start Date 09/29/2018 Inactive acyclovir 400 mg tablet RxNorm: 044507 2 Tablet(s) PO 5x daily No Start Date 02/28/2017 Inactive Lyrica 50 mg capsule RxNorm: 720487 Capsule(s) PO BID No Start Date 06/09/2018 Inactive Vraylar 3 mg capsule RxNorm: 3450535 1 Capsule(s) PO daily No Start Date 03/12/2018 Inactive valsartan 80 mg tablet RxNorm: 512095 1 Tablet(s) PO daily No Start Date 10/22/2018 Inactive Medication Administered Medication Codes Instructions Start Date Status ketorolac 60 mg/2 mL intramuscular solution RxNorm: 2341417 Milliliter 10/21/2018 No longer Active Kenalog 40 mg/mL suspension for injection RxNorm: 5209919 1.5Milliliter 09/30/2018 No longer Active Kenalog 40 mg/mL suspension for injection RxNorm: 0539865 Milliliter 09/11/2018 No longer Active Kenalog 40 mg/mL suspension for injection RxNorm: 3702339 Milliliter 06/28/2018 No longer Active ketorolac 30 mg/mL injection solution RxNorm: 862116 2Milliliter 05/02/2018 No longer Active ceftriaxone 500 mg solution for injection RxNorm: 2766681 1Milliliter 02/16/2017 No longer Active Kenalog 40 mg/mL suspension for injection RxNorm: 5608775 1Milliliter 02/16/2017 No longer Active ceftriaxone 1 gram solution for injection RxNorm: 2495832 10/06/2016 No longer Active Kenalog 40 mg/mL suspension for injection RxNorm: 1748891 Milliliter 01/20/2016 No longer Active Immunizations Vaccine [...] Item Item Code Result Date Culture Sputum 235389 LOWER RESPIRATORY TRACT CULTURE SEE NOTES 10/16/2018 LIPID GRP 1000760 CHOLESTEROL TNP:Duplicate Order 09/10/2018 LIPID GRP Triglyceride TNP:Duplicate Order 2017 LIPID GRP HDL CHOLESTEROL TNP:Duplicate Order 2017 LIPID GRP Chol/HDL Ratio TNP:Duplicate Order 2017 LIPID GRP 9464010 LDL Cholesterol TNP:Duplicate Order 2017 A1C HPLC 9730363 Hgb A1c 47220-9 TNP:Duplicate Order 2017 C Diff An [id number] GDH TNP:Lab Request 06/22/2018 C Diff An [id number] Toxin A/B TNP:Lab Request 06/22/2018 C Diff An [id number] C Diff Analyzer TNP:Lab Request 2017 C Diff An [id number] IC OK? TNP:Lab Request 06/22/2018 CBC 1801061 WBC 6.4 10e9/L 05/02/2018 CBC 3599429 RBC 5.60 10e12/L 05/02/2018 CBC 4627721 HEMOGLOBIN 17.0 g/dL 05/02/2018 CBC 3863893 HEMATOCRIT 48.0 % 05/02/2018 CBC 5523668 MCV 85.7 fL 05/02/2018 CBC 4973305 MCH 30.4 pg 05/02/2018 CBC 4563556 MCHC 35.4 g/dL 05/02/2018 CBC 1069216 PLATELET COUNT 166 10e9/L 05/02/2018 CBC 9406219 Mean Plt Volume 11.6 fL 05/02/2018 CBC 8255345 Neut Auto 48.6 % 05/02/2018 CBC 0843870 Lymph Auto 41.7 % 05/02/2018 CBC 2240932 [place] Auto 8.1 % 05/02/2018 CBC 6769145 RDW 13.1 % 05/02/2018 CBC 3920001 Eos Auto 1.1 % 05/02/2018 CBC 6872548 Baso Auto 0.5 % 05/02/2018 CBC 0564234 Neutrophil Abs 3.11 10e9/L 05/02/2018 CBC 8440484 Lymphocyte Abs 2.67 10e9/L 05/02/2018 CBC 8578418 Monocyte Abs 0.52 10e9/L 05/02/2018 CBC 4368411 Eosinophil Abs 0.07 10e9/L 05/02/2018 CBC 5884603 RDW-SD 40.0 fL 05/02/2018 CBC 3635413 Basophil Abs 0.03 10e9/L 05/02/2018 CHEM 14 8834294 AST 17 U/L 05/02/2018 CHEM 14 7605773 ALT 17 U/L 05/02/2018 CHEM 14 9505786 BUN 17 mg/dL 05/02/2018 CHEM 14 6930100 ALBUMIN 4.0 g/dL 05/02/2018 CHEM 14 5765240 CHLORIDE 97 mmol/L 05/02/2018 CHEM 14 5489384 Bili Total 0.9 mg/dL 05/02/2018 CHEM 14 1888870 ALK PHOS 67 U/L 05/02/2018 CHEM 14 0962022 SODIUM 135 mmol/L 05/02/2018 CHEM 14 5415553 CREATININE 1.18 mg/dL 05/02/2018 CHEM 14 1963830 CALCIUM 9.4 mg/dL 05/02/2018 CHEM 14 4857763 POTASSIUM 4.4 mmol/L 05/02/2018 CHEM 14 5464535 TOTAL PROTEIN 6.9 g/dL 05/02/2018 CHEM 14 1939270 GLUCOSE 316 mg/dL 05/02/2018 CHEM 14 7140721 Bicarbonate 29 mmol/L 05/02/2018 CHEM 14 4954169 AGAP 9 mmol/L 05/02/2018 MEAN GLUC 9376821 Calc Mean Gluc 283 mg/dL 05/02/2018 A1C HPLC 9092547 Hgb A1c 22386-5 11.5 % 05/02/2018 GFR CALC 6772735 GFR Non Afr Amr >60 mL/min 05/02/2018 GFR CALC 2363134 GFR Afr Amr >60 mL/min 05/02/2018 JIC Gold 9267550 JIC Gold Complete 02/28/2018 GFR CALC 8796228 GFR Non Afr Amr >60 mL/min 02/28/2018 GFR CALC 7371667 GFR Afr Amr >60 mL/min 02/28/2018 UA W/CII 0738002 UA Urine Appear Normal 02/28/2018 UA W/CII 1892878 UA Protein 1+ 02/28/2018 UA W/CII 6460838 UA Hemoglobin Negative 02/28/2018 UA W/CII 3797302 UA Glucose 4+ 02/28/2018 UA W/CII 3961233 UA Ketones Trace 02/28/2018 UA W/CII 1203874 UA pH 5.5 02/28/2018 UA W/CII 6139179 U Spec Moore 1.015 02/28/2018 UA W/CII 5655357 UA Bilirubin Negative 02/28/2018 UA W/CII 6341483 UA Nitrite NEG 02/28/2018 UA W/CII 1087331 UA Leuk Esteras Negative 02/28/2018 MICR 0895075 UA WBC/hpf 1 02/28/2018 MICR 3993030 UA RBC hpf 2 02/28/2018 MICR 3967444 UA WBC auto 3.8 /uL 02/28/2018 MICR 0197362 UA RBC auto 12.2 /uL 02/28/2018 MICR 6725175 UA SQ EPI auto 2.3 /uL 02/28/2018 MICR 1589030 UA H Cast auto 0.10 /uL 02/28/2018 CBC 3887289 WBC 6.4 10e9/L 02/28/2018 CBC 7117570 RBC 5.51 10e12/L 02/28/2018 CBC 4066755 HEMOGLOBIN 16.7 g/dL 02/28/2018 CBC 4837994 HEMATOCRIT 46.9 % 02/28/2018 CBC 0265927 MCV 85.1 fL 02/28/2018 CBC 9929637 MCH 30.3 pg 02/28/2018 CBC 3509493 MCHC 35.6 g/dL 02/28/2018 CBC 5341492 PLATELET COUNT 173 10e9/L 02/28/2018 CBC 1255351 Mean Plt Volume 11.6 fL 02/28/2018 CBC 5127552 Neut Auto 51.8 % 02/28/2018 CBC 0530791 Lymph Auto 39.9 % 02/28/2018 CBC 6941420 [place] Auto 7.3 % 02/28/2018 CBC 7648399 Eos Auto 0.8 % 02/28/2018 CBC 5239628 RDW 13.3 % 02/28/2018 CBC 1135750 Baso Auto 0.2 % 02/28/2018 CBC 7925794 Neutrophil Abs 3.32 10e9/L 02/28/2018 CBC 7695303 Lymphocyte Abs 2.55 10e9/L 02/28/2018 CBC 4168449 Monocyte Abs 0.47 10e9/L 02/28/2018 CBC 3207125 Eosinophil Abs 0.05 10e9/L 02/28/2018 CBC 5652913 Basophil Abs 0.01 10e9/L 02/28/2018 CBC 3190524 RDW-SD 40.8 fL 02/28/2018 CHEM 14 8411384 AST 17 U/L 02/28/2018 CHEM 14 5069391 ALT 17 U/L 02/28/2018 CHEM 14 9951165 BUN 20 mg/dL 02/28/2018 CHEM 14 4305310 ALBUMIN 4.1 g/dL 02/28/2018 CHEM 14 9094917 CHLORIDE 97 mmol/L 02/28/2018 CHEM 14 1436728 Bili Total 1.3 mg/dL 02/28/2018 CHEM 14 9402526 ALK PHOS 78 U/L 02/28/2018 CHEM 14 6691976 SODIUM 135 mmol/L 02/28/2018 CHEM 14 2021932 CREATININE 1.09 mg/dL 02/28/2018 CHEM 14 5250857 CALCIUM 9.6 mg/dL 02/28/2018 CHEM 14 0382838 POTASSIUM 3.8 mmol/L 02/28/2018 CHEM 14 4470558 TOTAL PROTEIN 7.3 g/dL 02/28/2018 CHEM 14 4442002 GLUCOSE 349 mg/dL 02/28/2018 CHEM 14 7821345 Bicarbonate 29 mmol/L 02/28/2018 CHEM 14 2493419 AGAP 9 mmol/L 02/28/2018 [place] Spotted Fever Igg/Igm 232335 FEI MT SPOTTED FEVER IGM EIA . 09/05/2017 [place] Spotted Fever Igg/Igm 097089 RMSF, IGM 0.17 index 09/05/2017 [place] Spotted Fever Igg/Igm 620626 FEI MT SPOTTED FEVER IGG EIA FLEX . 09/05/2017 [place] Spotted Fever Igg/Igm 239978 RMSF, IGG SCREEN-FLEX Positive 09/05/2017 Fei Mtn Spot'D Fev Igg 760884 RMSF, IGG -TITER IFA <1:64 11/2016 Ehrlichia Chaffeensis Antibody Igm 309278 EHRLICHIA CHAFFEENSIS IGM < 1:16 09/03/2017 Ehrlichia Chaffeensis Antibody Igg 957235 EHRLICHIA CHAFFEENSIS IGG <1:64 09/03/2017 Lymes Disease Total Antibodies With Western Blot Reflex B. BURGDORFERI, IGG/IGM 0.223 08/30/2017 Lymes Disease Total Antibodies With Western Blot Reflex C-Reactive Protein Qnt Crqnt CRP 0.00 mg/dl 08/27/2017 Sed Rate Ord21 ESR 8 mm/hr 08/27/2017 Comp Metabolic Dht138 NA 135 mEq/L 08/16/2017 Comp Metabolic Gjj617 K 4.1 mEq/L 08/16/2017 Comp Metabolic Sro212 CL 98 mEq/L 08/16/2017 Comp Metabolic Glo403 CO2 28.0 mEq/L 08/16/2017 Comp Metabolic Wdu876 ANION GAP 13 08/16/2017 Comp Metabolic Psk195 GLUCOSE 299 mg/dL 08/16/2017 Comp Metabolic Dwg164 Creat 0.9 mg/dL 08/16/2017 Comp Metabolic Vyi833 eGFR 90 ml/min/1.73m2 08/16/2017 Comp Metabolic Fje198 BUN 20 mg/dL 08/16/2017 Comp Metabolic Qqx411 B/C Ratio 21.5 Ratio 08/16/2017 Comp Metabolic Gxc185 CALCIUM 9.2 mg/dL 08/16/2017 Comp Metabolic Amd458 ALK PHOS 84 U/L 08/16/2017 Comp Metabolic Iyr693 AST(SGOT) 19 U/L 08/16/2017 Comp Metabolic Liy558 ALT(SGPT) 24 U/L 08/16/2017 Comp Metabolic Ema314 BILI T 1.1 mg/dL 08/16/2017 Comp Metabolic Hef362 ALBUMIN 4.2 g/dL 08/16/2017 Comp Metabolic Unc763 TPRO 7.2 g/dL 08/16/2017 Comp Metabolic Apq233 GLOB 3.0 g/dL 08/16/2017 Comp Metabolic Gqw665 A/G Ratio 1.4 Ratio 08/16/2017 Comp Metabolic Jfn030 Osmo 284 mOsmo 08/16/2017 %Hba1C Tgn805 % HbA1c 70179-5 12.5 % 08/16/2017 %Hba1C Ogd320 Gluc Ave 312 mg/dL 08/16/2017 Urine Culture Ucult Complete NO Growth Day 2 06/23/2017 Urine Culture Ucult Preliminary NO Growth Day 1 06/23/2017 C RAP A SC [id number] Strep A Negative 06/08/2017 %Hba1C Xng071 % HbA1c 74608-2 9.5 % 05/04/2017 %Hba1C Siz412 Gluc Ave 226 mg/dL 05/04/2017 Tsh Ord6 [...] 31.7 pg 05/04/2017 Cbc With Differential Ord2 [place]% 8.5 % 05/04/2017 Cbc With Differential Ord2 [...] 2.48 K/ul 05/04/2017 Cbc With Differential Ord2 [place] ABS# 0.5 K/ul 05/04/2017 Cbc With Differential Ord2 Eos ABS# 0.1 K/ul 05/04/2017 Cbc With Differential Ord2 Baso ABS# 0.0 K/ul 05/04/2017 Comp Metabolic Ito852 NA 135 mEq/L 05/04/2017 Comp Metabolic Utz063 K 4.2 mEq/L 05/04/2017 Comp Metabolic Jyu018 CL 99 mEq/L 05/04/2017 Comp Metabolic Fja259 CO2 26.0 mEq/L 05/04/2017 Comp Metabolic Yzc359 ANION GAP 14 05/04/2017 Comp Metabolic Lgg517 GLUCOSE 277 mg/dL 05/04/2017 Comp Metabolic Vuo662 Creat 0.9 mg/dL 05/04/2017 Comp Metabolic Xnz159 eGFR 96 ml/min/1.73m2 05/04/2017 Comp Metabolic Wmv514 BUN 23 mg/dL 05/04/2017 Comp Metabolic Xls012 B/C Ratio 26.1 Ratio 05/04/2017 Comp Metabolic Uzh542 CALCIUM 8.9 mg/dL 05/04/2017 Comp Metabolic Xgk532 ALK PHOS 81 U/L 05/04/2017 Comp Metabolic Ubt829 AST(SGOT) 21 U/L 05/04/2017 Comp Metabolic Iab428 ALT(SGPT) 27 U/L 05/04/2017 Comp Metabolic Uew110 BILI T 1.2 mg/dL 05/04/2017 Comp Metabolic Nmt019 ALBUMIN 4.0 g/dL 05/04/2017 Comp Metabolic Ysv169 TPRO 6.7 g/dL 05/04/2017 Comp Metabolic Wqg390 GLOB 2.7 g/dL 05/04/2017 Comp Metabolic Pqs071 A/G Ratio 1.5 Ratio 05/04/2017 Comp Metabolic Yet551 Osmo 284 mOsmo 05/04/2017 C A/B FLU 9357626 Influenza A Scr Negative 02/16/2017 C A/B FLU 6290288 Influenza B Scr Positive 02/16/2017 Cbc With [...] 39.7 % 05/23/2016 Cbc With Differential Ord2 [place]% 8.8 % 05/23/2016 Cbc With Differential Ord2 [...] 2.07 K/ul 05/23/2016 Cbc With Differential Ord2 [place] ABS# 0.5 K/ul 05/23/2016 Cbc With Differential Ord2 Eos ABS# 0.1 K/ul 05/23/2016 Cbc With Differential Ord2 Baso ABS# 0.0 K/ul 05/23/2016 Lipid Ord30 CHOL 397 mg/dL 05/17/2016 Lipid Ord30 HDL 48.0 mg/dl 05/17/2016 Lipid Ord30 TRIG 578 mg/dL 05/17/2016 Lipid Ord30 LDL Unable to calculate Due to elevated triglycerides mg/dL 05/17/2016 Lipid Ord30 C/HDL 8.3 Ratio 05/17/2016 %Hba1C Ofq792 % HbA1c 97226-6 12.4 % 05/16/2016 %Hba1C Tee355 Gluc Ave 309 mg/dL 05/16/2016 Cbc With [...] 87.4 fl 05/15/2016 Cbc With Differential Ord2 [place]% 7.8 % 05/15/2016 Cbc With Differential Ord2 [...] 2.04 K/ul 05/15/2016 Cbc With Differential Ord2 [place] ABS# 0.5 K/ul 05/15/2016 Cbc With Differential Ord2 Eos ABS# 0.1 K/ul 05/15/2016 Cbc With Differential Ord2 Baso ABS# 0.0 K/ul 05/15/2016 Tsh Ord6 hTSH II 1.70 uIU/mL 05/15/2016 Comp Metabolic Opt495 NA 135 mEq/L 05/15/2016 Comp Metabolic Vso104 K 3.9 mEq/L 05/15/2016 Comp Metabolic Vnx244 CL 96 mEq/L 05/15/2016 Comp Metabolic Hfa800 CO2 27.0 mEq/L 05/15/2016 Comp Metabolic Vnd046 ANION GAP 16 05/15/2016 Comp Metabolic Poh746 GLUCOSE 183 mg/dL 05/15/2016 Comp Metabolic Mbp918 Creat 1.1 mg/dL 05/15/2016 Comp Metabolic Jxe548 eGFR 71 ml/min/1.73m2 05/15/2016 Comp Metabolic Fhp900 BUN 17 mg/dL 05/15/2016 Comp Metabolic Iqw039 B/C Ratio 14.9 Ratio 05/15/2016 Comp Metabolic Fri281 CALCIUM 9.6 mg/dL 05/15/2016 Comp Metabolic Sjn994 ALK PHOS 100 U/L 05/15/2016 Comp Metabolic Bew743 AST(SGOT) 20 U/L 05/15/2016 Comp Metabolic Hon345 ALT(SGPT) 20 U/L 05/15/2016 Comp Metabolic Whn514 BILI T 1.3 mg/dL 05/15/2016 Comp Metabolic Urd276 ALBUMIN 4.6 g/dL 05/15/2016 Comp Metabolic Kkc062 TPRO 8.1 g/dL 05/15/2016 Comp Metabolic Vyj586 GLOB 3.5 g/dL 05/15/2016 Comp Metabolic Gyi446 A/G Ratio 1.3 Ratio 05/15/2016 Comp Metabolic Gya220 Osmo 276 mOsmo 05/15/2016 Review of Systems [...] of skin Location: face 05/04/2017 patch left [facility] Full Exam - General 1994 Constitutional general [...] CPT-4: J3301 09/30/2018 THER/PROPH/DIAG INJ SC/IM CPT-4: 87742 09/11/2018 TRIAMCINOLONE ACET INJ NOS CPT-4: J3301 09/11/2018 IMMUNIZATION ADMIN CPT -4: 07759 07/22/2018 FLU VAC NO PRSV 4 MNEA 3 YRS+ CPT-4: 28216 07/22/2018 TRIAMCINOLONE ACET INJ NOS CPT-4: J3301 06/28/2018 KETOROLAC TROMETHAMINE INJ CPT-4: J1885 05/02/2018 FLU VAC NO PRSV 4 MENA 3 YRS+ CPT-4: 93902 08/16/2017 IMMUNIZATION ADMIN CPT -4: 75911 08/16/2017 URINALYSIS NONAUTO W/O SCOPE CPT-4: 19494 06/21/2017 TRIAMCINOLONE ACET INJ NOS CPT-4: J3301 05/04/2017 THER/PROPH/DIAG INJ SC/IM CPT-4: 25486 05/04/2017 TRIAMCINOLONE ACET INJ NOS CPT-4: J3301 02/16/2017 ROCEPHIN, PER 250 MG CPT-4: J0696 02/16/2017 ROCEPHIN, PER 250 MG CPT-4: J0696 10/06/2016 URINALYSIS NONAUTO W/O SCOPE CPT-4: 05442 07/18/2016 TRIAMCINOLONE ACET INJ NOS CPT-4: J3301 01/20/2016 Vital Signs Date Vital 10/30/2018 Blood Pressure 1: 130/72 Code : 8480-6 BMI: 33.3 Code : 14101-6 Heart Rate 1 : 83 bpm Height: 6'2" SpO2: 95% Temperature: 36.5 (C) / 97.7 (F) Weight: 259 lbs 10/24/2018 Blood Pressure 1: 130/70 Code : 8480-6 Heart Rate 1: 95 bpm Height: 6'2" SpO2: 96% 10/23/2018 Blood Pressure 1: 100/70 Code : 8480-6 Blood Pressure 2: 102/70 Code: 8480-6 BMI: 33.3 Code: 71685-8 Heart Rate 1: 106 bpm Height: 6'2" SpO2: 98% Weight: 259 lbs 10/21/2018 Blood Pressure 1: 140/90 Code : 8480-6 BMI: 32.9 Code : 91182-7 Heart Rate 1 : 96 bpm Height: 6'2" SpO2: 92% Weight: 256 lbs 10/17/2018 Blood Pressure 1: 110/68 Code : 8480-6 BMI: 32.9 Code : 41454-7 Heart Rate 1 : 82 bpm Height: 6'2" SpO2: 97% Weight: 256 lbs 10/14/2018 Blood Pressure 1: 124/70 Code : 8480-6 BMI: 33.6 Code : 14817-8 Heart Rate 1 : 76 bpm Height: 6'2" SpO2: 99% Temperature: 36.3 (C) / 97.3 (F) Weight: 262 lbs 09/30/2018 Blood Pressure 1: 138/82 Code : 8480-6 BMI: 33.6 Code : 45174-3 Heart Rate 1 : 82 bpm Height: 6'2" SpO2: 98% Temperature: 36.3 (C) / 97.3 (F) Weight: 262 lbs 09/09/2018 Blood Pressure 1: 140/80 Code : 8480-6 BMI: 33.0 Code : 91723-5 Heart Rate 1 : 97 bpm Height: 6'2" SpO2: 93% Temperature: 36.8 (C) / 98.2 (F) Weight: 257 lbs 07/22/2018 Blood Pressure 1: 120/78 Code : 8480-6 BMI: 31.6 Code : 62600-0 Heart Rate 1 : 87 bpm Height: 6'2" SpO2: 98% Weight: 246 lbs 07/16/2018 Blood Pressure 1: 132/74 Code : 8480-6 BMI: 31.2 Code : 99388-4 Heart Rate 1 : 90 bpm Height: 6'2" SpO2: 96% Weight: 243 lbs 07/01/2018 Blood Pressure 1: 142/82 Code : 8480-6 BMI: 31.8 Code : 61475-5 Heart Rate 1 : 88 bpm Height: 6'2" SpO2: 98% Weight: 248 lbs 06/28/2018 Blood Pressure 1: 132/76 Code : 8480-6 BMI: 31.8 Code : 76708-6 Heart Rate 1 : 107 bpm Height: 6'2" SpO2: 98% Temperature: 37.9 (C) / 100.3 (F) Weight: 248 lbs 06/18/2018 Blood Pressure 1: 138/82 Code : 8480-6 BMI: 31.8 Code : 21831-2 Heart Rate 1 : 82 bpm Height: 6'2" SpO2: 97% Weight: 248 lbs 06/04/2018 Blood Pressure 1: 128/84 Code : 8480-6 BMI: 33.9 Code : 19576-3 Heart Rate 1 : 86 bpm Height: 6'2" SpO2: 95% Weight: 264 lbs 05/13/2018 Blood Pressure 1: 130/80 Code : 8480-6 BMI: 31.1 Code : 35810-4 Heart Rate 1 : 100 bpm Height: 6'2" SpO2: 94% Weight: 242 lbs 05/02/2018 Blood Pressure 1: 134/84 Code : 8480-6 BMI: 31.2 Code : 50942-3 Heart Rate 1 : 93 bpm Height: 6'2" SpO2: 98% Weight: 243 lbs 04/29/2018 Blood Pressure 1: 142/88 Code : 8480-6 BMI: 31.6 Code : 22868-3 Heart Rate 1 : 96 bpm Height: 6'2" SpO2: 96% Temperature: 36.7 (C) / 98.1 (F) Weight: 246 lbs 03/13/2018 Blood Pressure 1: 120/76 Code : 8480-6 BMI: 30.9 Code : 45997-3 Heart Rate 1 : 112 bpm Height: 6'2" SpO2: 97% Weight: 241 lbs 03/07/2018 Blood Pressure 1: 108/78 Code : 8480-6 BMI: 30.0 Code : 87522-1 Heart Rate 1 : 87 bpm Height: 6'2" SpO2: 98% Weight: 234 lbs 02/28/2018 Blood Pressure 1: 106/74 Code : 8480-6 BMI: 30.0 Code : 29691-0 Heart Rate 1 : 101 bpm Height: 6'2" SpO2: 98% Temperature: 36.4 (C) / 97.5 (F) Weight: 234 lbs 02/13/2018 Blood Pressure 1: 110/78 Code : 8480-6 BMI: 30.0 Code : 36599-0 Heart Rate 1 : 106 bpm Height: 6'2" SpO2: 98% Weight: 234 lbs 01/29/2018 Blood Pressure 1: 106/68 Code : 8480-6 BMI: 30.0 Code : 62379-8 Heart Rate 1 : 108 bpm Height: 6'2" SpO2: 98% Weight: 234 lbs 08/27/2017 Blood Pressure 1: 134/76 Code : 8480-6 Heart Rate 1: 98 bpm Height: SpO2: 97% Weight: 08/16/2017 Blood Pressure 1: 128/80 Code : 8480-6 BMI: 32.0 Code : 93848-7 Heart Rate 1 : 94 bpm Height: [...] Code : 8480-6 BMI: 31.8 Code : 86392-8 Heart Rate 1 : 102 bpm Height: [...] Code : 8480-6 BMI: 31.8 Code : 56651-5 Heart Rate 1 : 85 bpm Height: 6'2" SpO2: 96% Temperature: 36.6 (C) / 97.9 (F) Weight: 248 lbs 02/12/2017 Blood Pressure 1: 126/76 Code : 8480-6 BMI: 31.8 Code : 74776-9 Heart Rate 1 : 106 bpm Height: 6'2" SpO2: 91% Weight: 248 lbs 02/05/2017 Blood Pressure 1: 146/86 Code : 8480-6 BMI: 31.9 Code : 60636-5 Heart Rate 1 : 98 bpm Height: 6'2" SpO2: 87% Temperature: 36.7 (C) / 98.0 (F) Weight: 248 lbs 8 oz 01/29/2017 Blood Pressure 1: 132/84 Code : 8480-6 BMI: 31.8 Code : 19088-7 Heart Rate 1 : 83 bpm Height: 6'2" SpO2: 97% Weight: 248 lbs 10/13/2016 Blood Pressure 1: 128/72 Code : 8480-6 Heart Rate 1: 86 bpm SpO2: 94% 10/09/2016 Blood Pressure 1: 128/68 Code : 8480-6 Heart Rate 1: 136 bpm SpO2: 94% Temperature: 36.8 (C) / 98.2 (F) 10/06/2016 Blood Pressure 1: 140/80 Code : 8480-6 BMI: 32.1 Code : 57941-1 Heart Rate 1 : 94 bpm Height: 6'2" SpO2: 95% Weight: 250 lbs 07/18/2016 Blood Pressure 1: 128/86 Code : 8480-6 BMI: 32.1 Code : 44706-7 Heart Rate 1 : 89 bpm Height: 6'2" SpO2: 96% Weight: 250 lbs 06/22/2016 Blood Pressure 1: 118/70 Code : 8480-6 BMI: 32.1 Code : 84892-7 Heart Rate 1 : 70 bpm Height: 6'2" SpO2: 97% Weight: 250 lbs 05/23/2016 Blood Pressure 1: 128/80 Code : 8480-6 BMI: 32.1 Code : 31705-7 Heart Rate 1 : 76 bpm Height: 6'2" SpO2: 98% Weight: 250 lbs 05/15/2016 Blood Pressure 1: 110/90 Code : 8480-6 BMI: 31.3 Code : 75064-9 Heart Rate 1 : 111 bpm Height: 6'2" SpO2: 97% Temperature: 36.6 (C) / 97.8 (F) Weight: 244 lbs 01/20/2016 Blood Pressure 1: 128/76 Code : 8480-6 BMI: 33.0 Code : 30445-7 Heart Rate 1 : 103 bpm Height: [...] data Encounters Encounter Performer Location Codes Date ([id number]) 36000 EST. PATIENT, LEVEL III Diagnosis: Pneumonia due to other Gram-negative bacteria[ICD10: J15.6] Diagnosis: Cough[ICD10: R05] Melida Ha MD, [facility] CPT-4: 04133 10/30/2018 ([id number]) 42629 EST. PATIENT, LEVEL II Diagnosis: Pain in joints of right hand[ICD10: M25.541] Diagnosis: Trigger finger, right middle finger[ICD10: M65.331] Marcela Ha MD, [facility] CPT-4: 20436 10/24/2018 ([id number]) 25346 EST. PATIENT, LEVEL IV Diagnosis: Essential (primary) hypertension[ICD10: I10] Diagnosis: Type 2 diabetes mellitus with foot ulcer[ICD10: E11.621] Melida Ha MD [facility] CPT-4: 80370 10/23/2018 ([id number]) 96832 EST. PATIENT, LEVEL III Diagnosis: Cellulitis of right finger[ICD10: L03.011] Diagnosis: Type 2 diabetes mellitus with foot ulcer[ICD10: E11.621] Diagnosis: Pain in right hand[ICD10: M79.641] Melida Ha MD, [facility] CPT-4: 53311 10/21/2018 21424 EST. PATIENT, LEVEL III Diagnosis: Spontaneous ecchymoses[ICD10: R23.3] Diagnosis: Cellulitis of right lower limb[ICD10: L03.115] Diagnosis: Cellulitis of left lower limb[ICD10: L03.116] Madeline Ha MD, [facility] CPT-4: 95091 10/17/2018 ([id number]) 08682 EST. PATIENT, LEVEL III Diagnosis: Cough[ICD10: R05] Diagnosis: Acute bronchitis, unspecified[ICD10: J20.9] Melida Ha MD, [facility] CPT-4: 60445 10/14/2018 06028 EST. PATIENT, LEVEL III Diagnosis: Acute laryngopharyngitis[ICD10: J06.0] Diagnosis: Cough[ICD10: R05] Madeline Ha MD, [facility] CPT-4: 76138 09/30/2018 ([id number]) 13160 EST. PATIENT, LEVEL III Diagnosis: Acute recurrent maxillary sinusitis[ICD10: J01.01] Diagnosis: Cough[ICD10: R05] Diagnosis: Type 2 diabetes mellitus with hyperglycemia[ICD10: E11.65] Marcela Ha MD, [facility] CPT-4: 40174 09/09/2018 ([id number]) 87139 EST. PATIENT, LEVEL IV Diagnosis: Essential (primary) hypertension[ICD10: I10] Diagnosis: Mixed hyperlipidemia[ICD10: E78.2] Diagnosis: Bipolar disorder, current episode depressed, moderate[ICD10: F31.32] Diagnosis: Type 2 diabetes mellitus with other specified complication[ICD10: E11.69] Melida Ha MD, [facility] CPT-4: 12404 2017 ([id number]) 93034 EST. PATIENT, LEVEL III Diagnosis: Insomnia due to medical condition[ICD10: G47.01] Marcela Ha MD, [facility] CPT-4: 89102 07/16/2018 ([id number]) Miscellaneous no charge Diagnosis: Cough[ICD10: R05] Madeline Ha MD, [facility] CPT-4: 95156 07/01/2018 43870 EST. PATIENT, LEVEL III Diagnosis: Cough[ICD10: R05] Diagnosis: Acute laryngopharyngitis[ICD10: J06.0] Diagnosis: Other allergic rhinitis[ICD10: J30.89] Madeline Ha MD, [facility] CPT-4: 14206 06/28/2018 ([id number]) 19874 EST. PATIENT, LEVEL IV Diagnosis: Type 2 diabetes mellitus with hyperglycemia[ICD10: E11.65] Diagnosis: Essential (primary) hypertension[ICD10: I10] Melida Ha MD, [facility] CPT-4: 39673 06/18/2018 ([id number]) 62731 EST. PATIENT, LEVEL IV Diagnosis: Type 2 diabetes mellitus with hyperglycemia[ICD10: E11.65] Diagnosis: Essential (primary) hypertension[ICD10: I10] Diagnosis: Localized edema[ICD10: R60.0] Melida Ha MD, [facility] CPT- 4: 70842 06/04/2018 ([id number]) 75026 EST. PATIENT, LEVEL III Diagnosis: Type 2 diabetes mellitus with hyperglycemia[ICD10: E11.65] Diagnosis: Myalgia[ICD10: M79.1] Diagnosis: Pain in right hip[ICD10: M25.551] Diagnosis: Pain in left hip[ICD10: M25.552] Marcela Ha MD, [facility] CPT-4: 36871 05/13/2018 ([id number]) 28451 EST. PATIENT, LEVEL III Diagnosis: Myalgia[ICD10: M79.1] Diagnosis: Pain in right hip[ICD10: M25.551] Diagnosis: Pain in left hip[ICD10: M25.552] Marcela Ha MD, [facility] CPT-4: 48334 05/02/2018 ([id number]) 38729 EST. PATIENT, LEVEL IV Diagnosis: Essential (primary) hypertension[ICD10: I10] Diagnosis: Type 2 diabetes mellitus with hyperglycemia[ICD10: E11.65] Diagnosis: Major depressive disorder, single episode, moderate[ICD10: F32.1] Diagnosis: Myalgia[ICD10: M79.1] Marcela Ha MD, [facility] CPT-4: 56817 04/29/2018 ([id number]) 18348 EST. PATIENT, LEVEL IV Diagnosis: Type 2 diabetes mellitus with hyperglycemia[ICD10: E11.65] Diagnosis: Essential (primary) hypertension[ICD10: I10] Diagnosis: Major depressive disorder, single episode, moderate[ICD10: F32.1] Melida Ha MD, [facility] CPT-4: 84327 03/13/2018 ([id number]) 73779 EST. PATIENT, LEVEL III Diagnosis: Type 2 diabetes mellitus with hyperglycemia[ICD10: E11.65] Diagnosis: Bipolar disorder, current episode depressed, moderate[ICD10: F31.32] Diagnosis: Orthostatic hypotension[ICD10: I95.1] Marcela Ha MD, [facility] CPT-4: 46597 03/07/2018 ([id number]) 53854 EST. PATIENT, LEVEL IV Diagnosis: Type 2 diabetes mellitus with hyperglycemia[ICD10: E11.65] Diagnosis: Major depressive disorder, single episode, moderate[ICD10: F32.1] Diagnosis: Orthostatic hypotension[ICD10: I95.1] Diagnosis: Other fatigue[ICD10: R53.83] Marcela Ha MD, [facility] CPT-4: 18545 02/28/2018 00348 EST. PATIENT, LEVEL IV Diagnosis: Other fatigue[ICD10: R53.83] Diagnosis: Other malaise[ICD10: R53.81] Diagnosis: Gastro-esophageal reflux disease without esophagitis[ICD10: K21.9] Madeline Ha MD, [facility] CPT-4: 44948 02/13/2018 ([id number]) 27155 EST. PATIENT, LEVEL IV Diagnosis: Type 2 diabetes mellitus with foot ulcer[ICD10: E11.621] Diagnosis: Essential (primary) hypertension[ICD10: I10] Diagnosis: Gastro-esophageal reflux disease without esophagitis[ICD10: K21.9] Marcela Ha MD, [facility] CPT-4: 78696 01/29/2018 90613 EST. PATIENT, LEVEL III Diagnosis: Other malaise[ICD10: R53.81] Diagnosis: Other fatigue[ICD10: R53.83] Diagnosis: Pain in right shoulder[ICD10: M25.511] Diagnosis: Pain in left shoulder[ICD10: M25.512] Madeline Ha MD, [facility] CPT-4: 25076 08/27/2017 ([id number]) 53534 EST. PATIENT, LEVEL IV Diagnosis: Essential (primary) hypertension[ICD10: I10] Diagnosis: Type 2 diabetes mellitus with hyperglycemia[ICD10: E11.65] Diagnosis: VACCIN FOR INFLUENZA[ICD10: Z23] Melida Ha MD, [facility] CPT-4: 18045 08/16/2017 13173 EST. PATIENT, LEVEL III Diagnosis: Zoster without complications[ICD10: B02.9] Madeline Ha MD, [facility] CPT-4: 28968 07/26/2017 ([id number]) 66685 EST. PATIENT, LEVEL III Diagnosis: Cellulitis of right lower limb[ICD10: L03.115] Marcela Ha MD, [facility] CPT-4: 31895 07/03/2017 44919 EST. PATIENT, LEVEL II Diagnosis: Laceration without foreign body of left forearm, initial encounter[ ICD10: S51.812A] Marcela Ha MD, [facility] CPT-4: 13809 06/29/2017 ([id number]) 20168 EST. PATIENT, LEVEL III Diagnosis: Cellulitis of right lower limb[ICD10: L03.115] Diagnosis: Type 2 diabetes mellitus with foot ulcer[ICD10: E11.621] Marcela Ha MD , [facility] CPT-4: 44562 06/18/2017 ([id number]) 76052 EST. PATIENT, LEVEL IV Diagnosis: Cellulitis of right lower limb[ICD10: L03.115] Diagnosis: Acute laryngopharyngitis[ICD10: J06.0] Diagnosis: Gastro-esophageal reflux disease without esophagitis[ICD10: K21.9] Marcela Ha MD, [facility] CPT-4: 29347 06/07/2017 ([id number]) 91175 EST. PATIENT, LEVEL III Diagnosis: Type 2 diabetes mellitus with hyperglycemia[ICD10: E11.65] Diagnosis: Insect bite (nonvenomous) of abdominal wall, initial encounter[ICD10 : S30.861A] Marcela Ha MD, [facility] CPT-4: 91291 05/17/2017 ([id number]) 10541 EST. PATIENT, LEVEL III Diagnosis: Allergic contact dermatitis due to plants, except food[ICD10: L23.7] Melida Ha MD, [facility] CPT-4: 64863 05/04/2017 ([id number]) 28880 EST. PATIENT, LEVEL III Diagnosis: Essential (primary) hypertension[ICD10: I10] Marcela Ha MD, [facility] CPT-4: 09039 03/15/2017 ([id number]) 05342 EST. PATIENT, LEVEL III Diagnosis: Cough[ICD10: R05] Diagnosis: Essential (primary) hypertension[ICD10: I10] Marcela Ha MD, [facility] CPT-4: 78486 03/01/2017 ([id number]) 47893 EST. PATIENT, LEVEL III Diagnosis: Cough[ICD10: R05] Diagnosis: Nasal congestion[ICD10: R09.81] Diagnosis: Acute recurrent maxillary sinusitis[ICD10: J01.01] Marcela Ha MD, [facility] CPT-4: 16601 02/16/2017 ([id number]) 78794 EST. PATIENT, LEVEL III Diagnosis: Type 2 diabetes mellitus with hyperglycemia[ICD10: E11.65] Marcela Ha MD, [facility] CPT-4: 59395 02/12/2017 ([id number]) 94102 EST. PATIENT, LEVEL IV Diagnosis: Type 2 diabetes mellitus with hyperglycemia[ICD10: E11.65] Diagnosis: Muscle weakness (generalized)[ICD10: M62.81] Diagnosis: Disorientation, unspecified[ICD10: R41.0] Marcela Ha MD, [facility] CPT-4: 64874 02/05/2017 ([id number]) Patient admitted to the hospital from clinic (NO CHARGE) Diagnosis: Type 2 diabetes mellitus with hyperglycemia[ICD10: E11.65] Diagnosis: Disorientation, unspecified[ICD10: R41.0] Diagnosis: Muscle weakness (generalized)[ICD10: M62.81] Marcela Ha MD, [facility] CPT-4: 95562Z 01/29/2017 ([id number]) Miscellaneous no charge Diagnosis: Cellulitis of right lower limb[ICD10: L03.115] Marcela Ha MD, [facility] CPT-4: 90073 10/13/2016 ([id number]) Miscellaneous no charge Diagnosis: Type 2 diabetes mellitus with foot ulcer[ICD10: E11.621] Diagnosis: Pain in right foot[ICD10: M79.671] Marcela Ha MD, [facility] CPT-4: 21978 10/09/2016 29993 EST. PATIENT, LEVEL II Diagnosis: Cellulitis of right lower limb[ICD10: L03.115] Marcela Ha MD, [facility] CPT-4: 89835 10/06/2016 ([id number]) 22789 EST. PATIENT, LEVEL IV Diagnosis: Low back pain[ICD10: M54.5] Diagnosis: Other deformities of toe(s) (acquired), left foot[ICD10: M20.5X2] Diagnosis: Type 2 diabetes mellitus with foot ulcer[ICD10: E11.621] Marcela Ha MD , [facility] CPT-4: 30068 07/18/2016 ([id number]) 67826 EST. PATIENT, LEVEL III Diagnosis: Type 2 diabetes mellitus with hyperglycemia[ICD10: E11.65] [facility] CPT-4: 88516 06/22/2016 ([id number]) 64314 EST. PATIENT, LEVEL IV Diagnosis: Type 2 diabetes mellitus with hyperglycemia[ICD10: E11.65] Diagnosis: Mixed hyperlipidemia[ICD10: E78.2] Diagnosis: Other hemoglobinopathies[ICD10: D58.2] Marcela Ha MD, [facility] CPT-4: 11701 05/23/2016 ([id number] 49479 EST. PATIENT, LEVEL IV Diagnosis: Type 2 diabetes mellitus with other specified complication[ICD10: E11.69] Diagnosis: Dehydration[ICD10: E86.0] [facility] CPT-4: 03608 05/15/2016 ([id number]) OFFICE VISIT, NEW - LEVEL 3 Diagnosis: Allergic contact dermatitis due to plants, except food[ICD10: L23.7] Madeline Ha MD, [facility] CPT-4: 50020 01/20/2016 Plan of Care Planned Activity Notes [...] for evaluation 10/24/2018 Appointment: Marcela Oshea WPtel: [address] [place], [place] [phone] (30 min) [facility] 10/24/2018 Patient Education: Patient Medication Summary Completed 10/24/2018 Care Plan: Referral Order SNOMED-CT : [id number] Pending 10/24/2018 Visit Plan: Hypotension - discussed [...] controlled. 10/23/2018 Appointment: [phone] [facility] [place] (15 min) Moderate 10/23/2018 [...] and plan. 10/21/2018 App[facility]ment[phone] [phone] [place] (30 min) Complex 10/21/2018 Patient Education: [...] discharge. 10/17/2018 Appointment: Madeline Kennedy WPtel: [phone] [facility] (15 min) Moderate 10/17/2018 Patient Education: [...] worsen. 10/14/2018 Appointment: Marcela Oshea WPtel: [phone] [phone] (15 min) Moderate 10/14/2018 Patient Education: Patient Medication Summary Completed 10/14/2018 Care Plan: CHEST X-RAY 2VW FRONTAL&LATL LOINC : 82558-5 Pending 10/14/2018 Visit Plan: URI - Pt [...] spray. 09/30/2018 Appointment: Madeline Kennedy WPtel: [phone] [facility] (15 min) Moderate 09/30/2018 Patient Education: [...] Hgb A1C 09/09/2018 Appointment: Marcela Oshea WPtel: [phone] (15 min) Moderate 09/09/2018 Patient Education: Patient Medication Summary Completed 09/09/2018 Patient Education: Patient Medication Summary Completed 09/06/2018 Patient Education: Cholesterol Management Completed 09/06/2018 Care Plan: Comp Metabolic Pending 09/06/2018 Care Plan: Cbc With Differential Pending 09/06/2018 Care Plan: %Hba1C LOINC : 61130-8 Pending 09/06/2018 Care Plan: Tsh Pending 09/06/2018 Care Plan: Lipid Pending 09/06/2018 Appointment: Marcela Oshea WPtel: [phone] (15 min) Moderate 08/26/2018 Appointment: Marcela Oshea WPtel: [address] [place], [place] [phone] (15 min) Moderate 08/23/2018 Visit Plan: Hypertension [...] Melida Ha WPtel: [facility] (15 min) Moderate 07/22/2018 Patient [...] Marcela Oshea WPtel: [phone] (30 min) Complex 07/16/2018 Patient Education: Patient Medication Summary Completed 07/16/2018 Visit Plan: cough - improved - notify clinic if symptoms do not completely resolve, or with any questions or concerns. 07/01/2018 Appointment: [phone] [facility] (15 min) Moderate 07/01/2018 Patient Education: [...] spray. 06/28/2018 Appointment: Madeline Kennedy WPtel: [phone] [facility] (15 min) Moderate 06/28/2018 Patient Education: [...] at home. 06/18/2018 Appointment: Melida Ha WPtel: [phone] [facility] (15 min) Moderate 06/18/2018 Patient Education: [...] 06/04/2018 Appointment: Melida Ha WPtel: [phone] [facility] (15 min) Moderate 06/04/2018 Patient Education: [...] allow for greater blood glucose control. Joint zbww-zjziwkyc-yywfjky- symptoms have improved -stop meloxicam due to upset stomach-call if symptoms return 05/13/2018 Appointment: Marcela Oshea WPtel: [phone] [phone] (30 min) Complex 05/13/2018 Patient Education: Patient Medication Summary Completed 05/13/2018 Visit Plan: Bilateral hip hies-ajhbppsx-afoxorr IM injection administered today for c/o continued myalgia/arthralgia. Patient to start taking Meloxicam 15mg PO daily. Advised to return to clinic if symptoms do not improve. 05/02/2018 Appointment: Marcela Oshea WPtel: [phone] [phone] (30 min) Complex 05/02/2018 Patient Education: [...] readings at home. Diabetes Mellitus -check labs Nnpdlndt-kumctae-rcyi bite-rx for doxycycline-follow up in 2 weeks 04/29/2018 Appointment: Marcela Oshea WPtel: [phone] [phone] [place] (15 min) Moderate 04/29/2018 Patient Education: Patient Medication Summary Completed 04/29/2018 Appointment: Melida Ha WPtel: [phone] [facility] [place] (15 min) Moderate 04/15/2018 Appointment: Marcela Oshea WPtel: [phone] [phone] [place] (30 min) Complex 03/21/2018 Visit [...] cymbalta 03/13/2018 Appointment: Melida Ha WPtel: [phone] [facility] [place] (30 min) Complex 03/13/2018 Patient Education: Patient Medication Summary Completed 03/13/2018 Visit Plan: DM-continue same medications-monitor blood sugars routinely as directed -rx for new glucometer and test strips provided Bipolar-currently depressed-patient start on vraylar-follow up in 2 weeks, sooner if needed. Patient and verbalied understanding of plan. Hypotension- stay off losartan 03/07/2018 Appointment: Marcela Oshea WPtel: [phone] (30 min) Complex 03/07/2018 Patient Education: Patient Medication Summary Completed 03/07/2018 Appointment: Melida Ha WPtel: [facility] (15 min) Moderate 03/04/2018 Visit [...] Marcela Oshea WPtel: [phone] (30 min) Complex 02/28/2018 Patient Education: [...] improving. 02/13/2018 Appointment: [facility] [phone] [facility] (15 min) Moderate 02/13/2018 Patient Education: Patient Medication Summary Completed 02/13/2018 Referral: [place] Patient informed. Referral info faxed. Completed Visit Plan: DM-weight loss-not checking blood sugars- patient sent for labs today HTN-low jhkgu-mymueva-xtbkj labs Callus of foot and fissue of [...] improving. 01/29/2018 Appointment: [facility] [phone] [phone] (30 min) Complex 01/29/2018 Patient Education: Patient Medication Summary Completed 01/29/2018 Care Plan: Comp Metabolic Cancelled 01/29/2018 Care Plan: Cbc With Differential Cancelled 01/29/2018 Care Plan: %Hba1C LOINC : 97345-1 Cancelled 01/29/2018 Care Plan: Referral Order SNOMED-CT : [id number] Cancelled 01/29/2018 Visit Plan: Fatigue, malaise, joint [...] or concerns. 08/27/2017 Appointment: Mad[facility] Kennedy [phone] [facility] (15 min) Moderate 08/27/2017 Patient Education: [...] - 08/16/2017 Appointment: Melida Ha WPtel: [phone] [facility] [place] (30 min) Complex 08/16/2017 Patient Education: Patient Medication Summary Completed 08/16/2017 Patient Education: Obesity Completed 08/16/2017 Appointment: Madeline Kennedy WPtel: [phone] [facility] (30 min) Complex 08/07/2017 Visit Plan: [...] contagious. 07/26/2017 Appointment: Madeline Kennedy WPtel: [phone] [facility] [place] (15 min) Moderate 07/26/2017 Patient Education: Patient Medication Summary Completed 07/26/2017 Visit Plan: Cellulitis right foot-cultured today in the office-home health to reapply wound vac--appt with wound care on to evaluate for debridement- 07/03/2017 Appointment: Marcela Oshea WPtel: [phone] [phone] [place] (30 min) Complex 07/03/2017 Patient Education: Patient Medication Summary Completed 07/03/2017 Visit Plan: Abrasion left arm - Pt was instructed to keep the wound clean, wash with antibacterial soap, use triple antibiotic ointment, call if redness, pustular drainage, or any other acute concerns. 06/29/2017 Appointment: Marcela Oshea WPtel: [address] [place], [place] [phone] (15 min) Moderate 06/29/2017 Patient Education: Patient [...] of plan. 06/18/2017 Appointment: Marcela Oshea WPtel: [facility] [place] [phone] (15 min) Moderate 06/18/2017 Patient Education: Patient [...] prilosec 06/07/2017 Appointment: Marcela Oshea WPtel: [address] [place], [place] [phone] (10 min) Simple 06/07/2017 Patient Education: Patient [...] bite-continue doxycycline 05/17/2017 Appointment: Marcela Oshea WPtel: [phone] [phone] (30 min) Complex 05/17/2017 Patient Education: [...] if you want anai edge called into [facility]. 05/04/2017 Appointment: Marcela Oshea WPtel: [address] [place], [place] [phone] (30 min) Complex 05/04/2017 Patient Education: Patient [...] Marcela Oshea WPtel: [phone] (15 min) Moderate 03/15/2017 Patient Education: Patient Medication Summary Completed 03/15/2017 Appointment: Marcela Oshea WPtel: [phone] (30 min) Complex 03/12/2017 Visit Plan: [...] as discussed 02/16/2017 Appointment: Marcela Oshea WPtel: [address] [place] [address] (15 min) Moderate 02/16/2017 Patient Education: Patient [...] become less controlled. 02/12/2017 Appointment: Marcela Osheatel: [address] [place] [address] (30 min) Complex 02/12/2017 Patient Education: Patient Medication Summary Completed 02/12/2017 Appointment: Marcela Oshea WPtel: [address] [place] [address] (30 min) Complex 02/06/2017 Visit Plan: Diabetes [...] but will consider 02/05/2017 Appointment: Marcela Oshea: [phone] [place] (30 min) Complex 02/05/2017 Patient Education: Patient Medication Summary Completed 02/05/2017 Appointment: Marcela Oshea WPtel: [phone] [phone] [place] (30 min) Complex 01/30/2017 Visit Plan: Acute confusion-uncontrolled diabetes- chronically noncompliant with treatment and stopped his insulin several months ago-r/o stroke vs DKA-Dr Ha in to evaluate patient-plan to admit for further work up and treatment-patient's called and she transported him to the hospital 01/29/2017 Appointment: Marcela Oshea WPtel: [phone] [place] (30 min) Complex 01/29/2017 Patient Education: Patient Medication Summary Completed 01/29/2017 Patient Education: Obesity Completed 01/29/2017 Visit Plan: Right foot pain-MRI shows foreign body-appt with Dr Grewal for evaluation on Sunday. 10/13/2016 Appointment: Marcela Oshea WPtel: [phone] [place] (15 min) Moderate 10/13/2016 Patient Education: Patient Medication Summary Completed 10/13/2016 Appointment: Marcela Oshea WPtel: [address] [place], [place] [phone] [place] (30 min) Complex 10/12/2016 Visit Plan: Right foot vxtp-fettaebt-lbwbf washer dropped on foot-xray negative but pain continues to increase-recommend MRI of foot for further evaluation-refer to wound care for lesions on right foot, patient has diabetes and history of osteomyelitis-culture obtained today-continue oral abx- follow up in the office on , sooner if needed 10/09/2016 Visit Plan: Right foot egrx-tcifmwio-uapif washer dropped on foot-xray negative but pain continues to increase-recommend MRI of foot for further evaluation-refer to wound care for lesions on right foot, patient has diabetes and history of osteomyelitis-culture obtained today-continue oral abx- follow up in the office on , sooner if needed 10/09/2016 Visit Plan: Right foot qfuf-hdoefovj-qnoli washer dropped on foot-xray negative but pain continues to increase-recommend MRI of foot for further evaluation-refer to wound care for lesions on right foot, patient has diabetes and history of osteomyelitis-culture obtained today-continue oral abx- follow up in the office on , sooner if needed 10/09/2016 Appointment: Marcela Oshea WPtel: [address] [place], [place] [phone] (30 min) Complex 10/09/2016 Patient Education: Patient Medication Summary Completed 10/09/2016 Visit Plan: Cellulitis - continue with oral antibiotics as previously directed, return to clinic as previously directed, call for acute change in symptoms, worsening redness, warmth, discharge. 10/06/2016 Appointment: Marcela Oshea WPtel: [address] [place], [place] [phone] (10 min) Simple 10/06/2016 Patient Education: Patient Medication Summary Completed 10/06/2016 Appointment: Marcela Oshea WPtel: [address] [place], [place] [phone] (30 min) Complex 08/24/2016 Referral: Sun Glynn Referral Completed 07/21/2016 Visit Plan: Low back pain- history of spinal fusion- patient for xray lumbar spine-RX sent to [facility] and instructed on use-topical voltaren samples provided and instructed on use. Ok to use tylenol as needed as well. The patient is to call the office if the pain is worsening or does not improve. Pressure ulcer left 4th toe-refer to Dr Glynn for evaluation 07/18/2016 Appointment: Marcela Oshea WPtel: [address] [place], [place] [phone] (30 min) Complex 07/18/2016 Patient Education: Patient Medication Summary Completed 07/18/2016 Patient Education: Obesity Completed 07/18/2016 Care Plan: Referral Order SNOMED-CT : [id number] Cancelled 07/18/2016 Visit Plan: Diabetes Mellitus - [...] glucose control. 06/22/2016 [phone] [facility] Complex 06/22/2016 Patient Education: [...] today 05/23/2016 [facility]ment: [phone] ([facility] min) Complex 05/23/2016 Patient Education: [...] Patient verbalized understanding of plan. 05/15/2016 Appointment: Mracela Oshea WPtel: [address] [place], [place] [phone] (15 min) Moderate 05/15/2016 Patient Education: Patient [...] but no full resolution of symptoms. . Mild ecchymosis with faint erythema - [...] for evaluation on Sunday. . Bilateral hip tzbg-njmwwhoq-kofrtpx IM injection administered today for c/o continued [...] for fracture from injury . Right foot afut-igcezbag-ezudt washer dropped on foot-xray negative but pain [...] for fracture from injury . Right foot exbx-erfvrpui-dbnmq washer dropped on foot-xray negative but pain [...] for fracture from injury . 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 Low back pain- history of spinal fusion-patient for xray lumbar spine-RX sent to [facility] pharmacy and instructed on use-topical voltaren samples [...] if you want anai edge called into [facility]. REPEAT LABS BEFORE YOUR NEXT APPOINTMENT IN [...] in the nasal steroid allergy spray. . Diabetes Mellitus - I have recommended [...] stop Vraylar and start on cymbalta . DM-weight loss-not checking blood sugars-patient sent for labs today HTN-low bynpf-zywoogq-kjeuc labs Callus of foot and fissue of [...] readings are starting to become less controlled. Cgnwturbp-vdiuqbie-zylknfim to monitor Generalized weakness-refer for PT-patient refuses [...] verbalied understanding of plan. Hypotension-stay off losartan culture of right foot strep swab prilosec [...] readings at home. Diabetes Mellitus -check labs Iwrmiprb-jdjzies-fioi bite-rx for doxycycline-follow up in 2 weeks [...] change in symptoms, worsening redness, warmth, discharge. STOP MELOXICAM CONTINUE LYRICA 50 UNITS TOUJEO [...] allow for greater blood glucose control. Joint qeuu-kjtohnsl-owhdngr-symptoms have improved -stop meloxicam due to upset stomach-call if symptoms return TOUJEO 20 UNITS DAILY MONITOR BLOOD SUGARS [...] not show improvement. DM-check Hgb A1C . Shingles - Herpes Zoster - acute [...]
--- OUTSIDE RECORDS SUMMARY | 2019-01-01 15:07 | XMS REPORT | CCD ---
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 Name Role Phone PP Unavailable CCM Unavailable Summary Purpose Interface Exchange Insurance Providers Payer name Policy type / Coverage type Covered republican ID Effective Begin Date Effective End Date Blue Cross Blue Shield [facility] Blue Cross/Blue Shield [id number] Unknown Family history Father Diagnosis Age At Onset Hyperlipidemia Unknown Heart Attack Unknown Mother Diagnosis Age At Onset Hypertension Unknown Social History Social History Element Codes Description Effective Dates Marital status Unknown Mignon 01/20/2016 Number of children Unknown 4 01/20/2016 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/[address]: 059595095 Never smoker 01/20/[address]: 185740326 Never drinks alcohol 01/20/2016 Allergies, Adverse Reactions, Alerts Substance Reaction Codes Entered Date Inactivated Date Status * NO KNOWN DRUG ALLERGIES Unknown 05/23/2016 No Inactive Date Active Past Medical History Illness Codes Condition Status Onset Date Resolved Date Pain in joints of right hand ICD-9: [...] Problems Condition Codes Effective Dates Condition Status Pain in joints of right hand ICD-9: [...] Start Date Stop Date Status Fill Instructions valsartan 80 mg tablet RxNorm: 902716 1/2 Tablet(s) PO daily 04/20/2019 Active doxycycline hyclate 100 mg tablet RxNorm: 0769263 1 Tablet(s) PO BID 10/21/2018 10/27/2018 Active ketorolac 60 mg/2 mL intramuscular solution RxNorm: 7102647 Milliliter(s) IM 10/21/2018 10/21/2018 Inactive Levaquin 500 mg tablet RxNorm: 658949 1 Tablet(s) PO daily 10/23/2018 Inactive albuterol sulfate 2.5 mg/3 mL (0.083 %) solution for nebulization RxNorm: 869107 3 Milliliter(s) INH UD 10/14/2018 No Stop Date Active Tessalon Perles 100 mg capsule RxNorm: 833710 1-2 Capsule(s) PO TID PRN 10/14/2018 No Stop Date Active Levaquin 500 mg tablet RxNorm: 944372 1 Tablet(s) PO daily 08/201810/16/2018 Inactive Coreg 6.25 mg tablet RxNorm: 531348 TAKE ONE TABLET BY MOUTH TWICE A DAY 09/30/2018 03/28/2019 Active albuterol sulfate 2.5 mg/3 mL (0.083 %) solution for nebulization RxNorm: 600702 3 Milliliter(s) INH UD 09/30/201807/2018 Inactive Kenalog 40 mg/mL suspension for injection RxNorm: 5503140 1.5 Milliliter(s) Inj 09/30/2018 09/30/2018 Inactive Keflex 500 mg capsule RxNorm: 266089 1 Capsule(s) PO TID 201710/03/2018 Inactive prednisone 20 mg tablet RxNorm: 930521 2 Tablet(s) PO daily 09/29/2018 Inactive Kenalog 40 mg/mL suspension for injection RxNorm: 8130272 Milliliter(s) Inj 09/11/2018 09/11/2018 Inactive Zyrtec 10 mg tablet RxNorm: 9491212 1 Tablet(s) PO daily 09/0910/08/2018 Inactive Keflex 500 mg capsule RxNorm: 568924 1 Capsule(s) PO TID 201709/15/2018 Inactive Tresiba FlexTouch U-200 insulin 200 unit/mL (3 mL) subcutaneous pen RxNorm: 2690940 50 Unit(s) SQ daily 08/30/2018 08/29/2018 Inactive please give him 30 day supply Tresiba FlexTouch U-200 insulin 200 unit/mL (3 mL) subcutaneous pen RxNorm: 8687471 50 Unit(s) SQ daily 08/30/2018 09/28/2018 Inactive please give him 30 day supply Novolog Flexpen U-100 Insulin aspart 100 unit/mL subcutaneous RxNorm: 5257445 8 Unit(s) SQ AC 08/13/2018 No Stop Date Active Novolog Flexpen U-100 Insulin aspart 100 unit/mL subcutaneous RxNorm: 7704835 8 Unit(s) SQ AC 07/22/20182017 Inactive this is an update on his medication Novolog Flexpen U-100 Insulin aspart 100 unit/mL subcutaneous RxNorm: 4423789 12 Unit(s) SQ AC 07/05/20182017 Inactive this is an update on his medication Toujeo SoloStar U-300 Insulin 300 unit/mL (1.5 mL) subcutaneous pen RxNorm: 7345845 INJECT 50 UNITS UNDER THE SKIN DAILY 07/01/2018 08/29/2018 Inactive Mucinex 600 mg tablet, extended release RxNorm: 576085 1 Tablet(s) PO BID 06/28/2018 07/04/2018 Inactive Zofran 4 mg tablet RxNorm: 445599 1 Tablet(s) PO TID as needed nausea 06/28/2018 07/02/2018 Inactive Kenalog 40 mg/mL suspension for injection RxNorm: 4962716 Milliliter(s) Inj 06/28/2018 06/28/2018 Inactive Flonase Allergy Relief 50 mcg/actuation nasal spray, suspension RxNorm: 2534101 1 [place] NASAL BID 06/28/20182017 Inactive Lyrica 50 mg capsule RxNorm: 952246 Capsule(s) PO daily 201707/07/2018 Inactive Novolog Flexpen U-100 Insulin aspart 100 unit/mL subcutaneous RxNorm: 7277237 10 Unit(s) SQ AC 06/18/20182017 Inactive this is an update on his medication Lasix 20 mg tablet RxNorm: 563390 1 Tablet(s) PO BIW 201707/02/2018 Inactive atorvastatin 80 mg tablet RxNorm: 115825 1 Tablet(s) PO QHS 04/201812/06/2018 Active clonazepam 1 mg tablet RxNorm: 325340 2 Tablet(s) PO HS 201706/04/2019 Active clonazepam 1 mg tablet RxNorm: 218882 2 Tablet(s) PO HS as needed 06/10/2018 06/09/2018 Inactive Lyrica 50 mg capsule RxNorm: 547908 Capsule(s) PO daily 201707/08/2018 Inactive Lasix 20 mg tablet RxNorm: 028294 1 Tablet(s) PO TIW 201706/11/2018 Inactive Toujeo SoloStar U-300 Insulin 300 unit/mL (1.5 mL) subcutaneous pen RxNorm: 0619203 50 Unit(s) SQ daily 05/07/2018 06/30/2018 Inactive meloxicam 15 mg tablet RxNorm: 335957 15 Milligram(s) PO daily 05/02/2018 05/12/2018 Inactive ketorolac 30 mg/mL injection solution RxNorm: 598651 2 Milliliter(s) Inj 05/02/2018 05/02/2018 Inactive Toujeo SoloStar U-300 Insulin 300 unit/mL (1.5 mL) subcutaneous pen RxNorm: 3844099 45 Unit(s) daily 04/29/2018 Inactive clonazepam 1 mg tablet RxNorm: 711572 1 Tablet(s) PO Q8 as needed 04/29/2018 06/09/2018 Inactive doxycycline hyclate 100 mg tablet RxNorm: 0529628 1 Tablet(s) PO BID 04/29/2018 05/12/2018 Inactive Cymbalta 30 mg capsule,delayed release RxNorm: 777305 1 Capsule(s) PO QAM 03/13/2018 10/08/2018 Inactive Lexapro 10 mg tablet RxNorm: 004746 1 Tablet(s) PO QPM 201703/03/2018 Inactive Toujeo SoloStar U-300 Insulin 300 unit/mL (1.5 mL) subcutaneous pen RxNorm: 7593692 20 Unit(s) daily 02/28/2018 Inactive Protonix 40 mg tablet,delayed release RxNorm: 808423 1 Tablet(s) PO daily 01/29/2018 06/09/2018 Inactive clonazepam 1 mg tablet RxNorm: 028659 1 Tablet(s) PO Q8 as needed 12/12/2017 03/10/2018 Inactive Tamiflu 75 mg capsule RxNorm: 979811 1 Capsule(s) PO BID 201712/03/2017 Inactive doxycycline hyclate 100 mg capsule RxNorm: 8517010 1 Capsule(s) PO BID 09/07/2017 09/20/2017 Inactive doxycycline hyclate 100 mg capsule RxNorm: 1370272 1 Capsule(s) PO BID 08/27/2017 09/06/2017 Inactive prednisone 20 mg tablet RxNorm: 732993 2 Tablet(s) PO daily 08/31/2017 Inactive clopidogrel 75 mg tablet RxNorm: 134452 1 Tablet(s) PO daily 06/09/2018 Inactive atorvastatin 40 mg tablet RxNorm: 097338 1 Tablet(s) PO QHS 02/27/2018 Inactive losartan 25 mg tablet RxNorm: 420706 TAKE ONE TABLET BY MOUTH DAILY 08/22/2017 06/09/2018 Inactive Toujeo SoloStar 300 unit/mL (1.5 mL) subcutaneous insulin pen RxNorm: 4760367 45 Unit(s) daily 08/17/2017 08/20/2017 Inactive mupirocin 2 % topical ointment RxNorm: 358581 1 Application TOP TID to the lesions on chest 08/16/2017 08/25/2017 Inactive Toujeo SoloStar 300 unit/mL (1.5 mL) subcutaneous insulin pen RxNorm: 2307976 40 Unit(s) daily 08/16/2017 08/16/2017 Inactive valacyclovir 1 gram tablet RxNorm: 361406 1 Tablet(s) PO TID 08/01/2017 Inactive clonazepam 1 mg tablet RxNorm: 065079 1 Tablet(s) PO Q8 as needed 07/03/2017 09/30/2017 Inactive Levaquin 500 mg tablet RxNorm: 665361 1 Tablet(s) PO daily 06/25/2017 Inactive Levaquin 500 mg tablet RxNorm: 629790 1 Tablet(s) PO daily 06/21/2017 Inactive losartan 25 mg tablet RxNorm: 055473 1 Tablet(s) PO daily 201608/16/2017 Inactive nystatin 100,000 unit/mL oral suspension RxNorm: 807589 5 Milliliter(s) PO QID Swish et swallow 06/18/2017 06/17/2017 Inactive nystatin 100,000 unit/mL oral suspension RxNorm: 325990 5 Milliliter(s) PO QID Swish et swallow 06/18/2017 06/27/2017 Inactive Cipro 500 mg tablet RxNorm: 879921 1 Tablet(s) PO BID 201606/18/2017 Inactive Cipro 500 mg tablet RxNorm: 012109 1 Tablet(s) PO BID 201606/11/2017 Inactive Toujeo SoloStar 300 unit/mL (1.5 mL) subcutaneous insulin pen RxNorm: 2759412 INJECT 10 UNITS UNDER THE SKIN DAILY 06/12/2017 08/15/2017 Inactive Keflex 500 mg capsule RxNorm: 832808 1 Capsule(s) PO TID 201606/13/2017 Inactive doxycycline hyclate 100 mg capsule RxNorm: 4343700 1 Capsule(s) PO BID 05/17/2017 05/21/2017 Inactive doxycycline hyclate 100 mg capsule RxNorm: 0567898 1 Capsule(s) PO BID 05/11/2017 05/16/2017 Inactive losartan 25 mg tablet RxNorm: 423613 1 Tablet(s) PO daily 201606/17/2017 Inactive atorvastatin 40 mg tablet RxNorm: 342866 1 Tablet(s) PO daily 03/01/2017 08/23/2017 Inactive clopidogrel 75 mg tablet RxNorm: 914852 1 Tablet(s) PO daily 08/23/2017 Inactive Flonase Allergy Relief 50 mcg/actuation nasal spray, suspension RxNorm: 2210383 2 [place] NASAL daily 02/16/20172016 Inactive Augmentin 875 mg-125 mg tablet RxNorm: 306587 1 Tablet(s) PO BID 02/16/2017 02/22/2017 Inactive GET PROBIOTIC TO TAKE WHILE ON ABX Tamiflu 75 mg capsule RxNorm: 927495 1 Capsule(s) PO BID 201602/20/2017 Inactive ceftriaxone 500 mg solution for injection RxNorm: 6493527 1 Milliliter(s) Inj 02/16/2017 02/16/2017 Inactive Kenalog 40 mg/mL suspension for injection RxNorm: 6717074 1 Milliliter(s) Inj 02/16/2017 02/16/2017 Inactive Toujeo SoloStar 300 unit/mL (1.5 mL) subcutaneous insulin pen RxNorm: 2230428 25 Unit(s) SQ QAM 02/12/2017 06/10/2017 Inactive Toujeo SoloStar 300 unit/mL (1.5 mL) subcutaneous insulin pen RxNorm: 5086560 10 Unit(s) SQ QAM 02/05/2017 02/11/2017 Inactive lisinopril 10 mg tablet RxNorm: 210049 1 Tablet(s) PO daily 02/28/2017 Inactive atorvastatin 40 mg tablet RxNorm: 521023 1 Tablet(s) PO daily 02/01/2017 02/28/2017 Inactive doxycycline hyclate 100 mg capsule RxNorm: 8318835 1 Capsule(s) PO BID 02/01/2017 02/10/2017 Inactive clonazepam 1 mg tablet RxNorm: 783379 1 Tablet(s) PO Q8 as needed 10/09/2016 01/05/2017 Inactive ceftriaxone 1 gram solution for injection RxNorm: 6685785 Inj 10/06/2016 10/06/2016 Inactive cyclobenzaprine 10 mg tablet RxNorm: 686639 1/2-1 Tablet(s) PO TID PRN 07/18/2016 01/28/2017 Inactive clonazepam 1 mg tablet RxNorm: 017496 1 Tablet(s) PO Q8 as needed 05/31/2016 05/29/2016 Inactive clonazepam 1 mg tablet RxNorm: 528999 1 Tablet(s) PO Q8 as needed 05/31/2016 08/28/2016 Inactive Toujeo SoloStar 300 unit/mL (1.5 mL) subcutaneous insulin pen RxNorm: 5370487 10 Unit(s) SQ daily 05/23/2016 01/28/2017 Inactive Crestor 10 mg tablet RxNorm: 541179 1 Tablet(s) PO QHS 201501/28/2017 Inactive Crestor 10 mg tablet RxNorm: 475975 1 Tablet(s) PO QHS 201505/18/2016 Inactive clonazepam 1 mg tablet RxNorm: 077142 1 Tablet(s) PO Q8 as needed 04/25/2016 05/30/2016 Inactive prednisone 20 mg tablet RxNorm: 341686 3 Tablet(s) PO daily 06/201602/10/2016 Inactive prednisone 20 mg tablet RxNorm: 573007 3 Tablet(s) PO daily 06/201605/14/2016 Inactive Kenalog 40 mg/mL suspension for injection RxNorm: 0884229 Milliliter(s) Inj 01/20/2016 01/20/2016 Inactive aspirin 81 mg tablet,delayed release RxNorm: 315411 1 Tablet(s) PO daily No Start Date Active Brilinta 90 mg tablet RxNorm: 4077542 1 Tablet(s) PO BID No Start Date Active acetaminophen 500 mg tablet RxNorm: 257509 1-2 Tablet(s) PO as needed No Start Date Active clopidogrel 75 mg tablet RxNorm: 767444 1 Tablet(s) PO daily No Start Date 02/28/2017 Inactive Novolog Flexpen U-100 Insulin aspart 100 unit/mL subcutaneous RxNorm: 1154723 5 units with breakfast lunch and 10 supper Unit(s) SQ No Start Date 06/17/2018 Inactive clonazepam 1 mg tablet RxNorm: 430491 1 Tablet(s) PO QHS No Start Date 04/24/2016 Inactive Coreg 6.25 mg tablet RxNorm: 081777 1 Tablet(s) PO BID No Start Date 09/29/2018 Inactive acyclovir 400 mg tablet RxNorm: 446682 2 Tablet(s) PO 5x daily No Start Date 02/28/2017 Inactive Lyrica 50 mg capsule RxNorm: 441861 Capsule(s) PO BID No Start Date 06/09/2018 Inactive Vraylar 3 mg capsule RxNorm: 7641182 1 Capsule(s) PO daily No Start Date 03/12/2018 Inactive valsartan 80 mg tablet RxNorm: 236976 1 Tablet(s) PO daily No Start Date 10/22/2018 Inactive Medication Administered Medication Codes Instructions Start Date Status ketorolac 60 mg/2 mL intramuscular solution RxNorm: 1168167 Milliliter 10/21/2018 No longer Active Kenalog 40 mg/mL suspension for injection RxNorm: 6134032 1.5Milliliter 09/30/2018 No longer Active Kenalog 40 mg/mL suspension for injection RxNorm: 1005525 Milliliter 09/11/2018 No longer Active Kenalog 40 mg/mL suspension for injection RxNorm: 7342560 Milliliter 06/28/2018 No longer Active ketorolac 30 mg/mL injection solution RxNorm: 913487 2Milliliter 05/02/2018 No longer Active ceftriaxone 500 mg solution for injection RxNorm: 4048514 1Milliliter 02/16/2017 No longer Active Kenalog 40 mg/mL suspension for injection RxNorm: 1609848 1Milliliter 02/16/2017 No longer Active ceftriaxone 1 gram solution for injection RxNorm: 7089390 10/06/2016 No longer Active Kenalog 40 mg/mL suspension for injection RxNorm: 0531930 Milliliter 01/20/2016 No longer Active Immunizations Vaccine Codes Date Status Influenza CVX: 141 07/22/2018 completed Influenza CVX: 141 08/16/2017 completed Assessments Condition Codes Effective Dates Pain in joints of right hand ICD-10: [...] Visit Reason For Visit Effective Dates Notes finger pain 10/24/2018 hand pain 10/23/2018 hand [...] Item Item Code Result Date Culture Sputum 692788 LOWER RESPIRATORY TRACT CULTURE SEE NOTES 10/16/2018 LIPID GRP 1359381 CHOLESTEROL TNP:Duplicate Order 09/10/2018 LIPID GRP 5676168 Triglyceride TNP:Duplicate Order 2017 LIPID GRP 4133647 HDL CHOLESTEROL TNP:Duplicate Order 2017 LIPID GRP 1151358 Chol/HDL Ratio TNP:Duplicate Order 2017 LIPID GRP 2599385 LDL Cholesterol TNP:Duplicate Order 2017 A1C HPLC 5252052 Hgb A1c 18277-3 TNP:Duplicate Order 2017 C Diff An [id number] GDH TNP:Lab Request 06/22/2018 C Diff An [id number] Toxin A/B TNP:Lab Request 06/22/2018 C Diff An [id number] C Diff Analyzer TNP:Lab Request 2017 C Diff An [id number] IC OK? TNP:Lab Request 06/22/2018 CBC 0784702 WBC 6.4 10e9/L 05/02/2018 CBC 1658097 RBC 5.60 10e12/L 05/02/2018 CBC 8687932 HEMOGLOBIN 17.0 g/dL 05/02/2018 CBC 1968608 HEMATOCRIT 48.0 % 05/02/2018 CBC 1611511 MCV 85.7 fL 05/02/2018 CBC 3590974 MCH 30.4 pg 05/02/2018 CBC 2846717 MCHC 35.4 g/dL 05/02/2018 CBC 6617526 PLATELET COUNT 166 10e9/L 05/02/2018 CBC 8371504 Mean Plt Volume 11.6 fL 05/02/2018 CBC 2185941 Neut Auto 48.6 % 05/02/2018 CBC 8793314 Lymph Auto 41.7 % 05/02/2018 CBC 5177875 Mower Auto 8.1 % 05/02/2018 CBC 0613983 RDW 13.1 % 05/02/2018 CBC 1374627 Eos Auto 1.1 % 05/02/2018 CBC 4234666 Baso Auto 0.5 % 05/02/2018 CBC 2330035 Neutrophil Abs 3.11 10e9/L 05/02/2018 CBC 0724158 Lymphocyte Abs 2.67 10e9/L 05/02/2018 CBC 9220121 Monocyte Abs 0.52 10e9/L 05/02/2018 CBC 2982854 Eosinophil Abs 0.07 10e9/L 05/02/2018 CBC 2188124 RDW-SD 40.0 fL 05/02/2018 CBC 0192773 Basophil Abs 0.03 10e9/L 05/02/2018 CHEM 14 0374549 AST 17 U/L 05/02/2018 CHEM 14 6263029 ALT 17 U/L 05/02/2018 CHEM 14 2532271 BUN 17 mg/dL 05/02/2018 CHEM 14 7361408 ALBUMIN 4.0 g/dL 05/02/2018 CHEM 14 5279589 CHLORIDE 97 mmol/L 05/02/2018 CHEM 14 4048359 Bili Total 0.9 mg/dL 05/02/2018 CHEM 14 8298189 ALK PHOS 67 U/L 05/02/2018 CHEM 14 7484512 SODIUM 135 mmol/L 05/02/2018 CHEM 14 7336953 CREATININE 1.18 mg/dL 05/02/2018 CHEM 14 6270277 CALCIUM 9.4 mg/dL 05/02/2018 CHEM 14 2035482 POTASSIUM 4.4 mmol/L 05/02/2018 CHEM 14 1074104 TOTAL PROTEIN 6.9 g/dL 05/02/2018 CHEM 14 9058914 GLUCOSE 316 mg/dL 05/02/2018 CHEM 14 4876367 Bicarbonate 29 mmol/L 05/02/2018 CHEM 14 7575300 AGAP 9 mmol/L 05/02/2018 MEAN GLUC 4964130 Calc Mean Gluc 283 mg/dL 05/02/2018 A1C HPLC 0128263 Hgb A1c 13622-9 11.5 % 05/02/2018 GFR CALC 1167379 GFR Non Afr Amr >60 mL/min 05/02/2018 GFR CALC 9178262 GFR Afr Amr >60 mL/min 05/02/2018 JI Gold 9975466 JI Gold Complete 02/28/2018 GFR CALC 6911624 GFR Non Afr Amr >60 mL/min 02/28/2018 GFR CALC 5119316 GFR Afr Amr >60 mL/min 02/28/2018 UA W/CII 8840826 UA Urine Appear Normal 02/28/2018 UA W/CII 4842471 UA Protein 1+ 02/28/2018 UA W/CII 9675131 UA Hemoglobin Negative 02/28/2018 UA W/CII 1976012 UA Glucose 4+ 02/28/2018 UA W/CII 6638640 UA Ketones Trace 02/28/2018 UA W/CII 6651851 UA pH 5.5 02/28/2018 UA W/CII 9483024 U Spec [place] 1.015 02/28/2018 UA W/CII 7586986 UA Bilirubin Negative 02/28/2018 UA W/CII 3557863 UA Nitrite NEG 02/28/2018 UA W/CII 2183809 UA Leuk Esteras Negative 02/28/2018 MICR 3551867 UA WBC/hpf 1 02/28/2018 MICR 6347703 UA RBC hpf 2 02/28/2018 MICR 4866154 UA WBC auto 3.8 /uL 02/28/2018 MICR 2112770 UA RBC auto 12.2 /uL 02/28/2018 MICR 0448080 UA SQ EPI auto 2.3 /uL 02/28/2018 MICR 6805952 UA H Cast auto 0.10 /uL 02/28/2018 CBC 1870220 WBC 6.4 10e9/L 02/28/2018 CBC 0640197 RBC 5.51 10e12/L 02/28/2018 CBC 8823054 HEMOGLOBIN 16.7 g/dL 02/28/2018 CBC 3029190 HEMATOCRIT 46.9 % 02/28/2018 CBC 7206490 MCV 85.1 fL 02/28/2018 CBC 2679222 MCH 30.3 pg 02/28/2018 CBC 0788119 MCHC 35.6 g/dL 02/28/2018 CBC 7823795 PLATELET COUNT 173 10e9/L 02/28/2018 CBC 2209895 Mean Plt Volume 11.6 fL 02/28/2018 CBC 7312629 Neut Auto 51.8 % 02/28/2018 CBC 3166305 Lymph Auto 39.9 % 02/28/2018 CBC 4944124 Mower Auto 7.3 % 02/28/2018 CBC 1361368 RDW 13.3 % 02/28/2018 CBC 5507423 Eos Auto 0.8 % 02/28/2018 CBC 1249861 Baso Auto 0.2 % 02/28/2018 CBC 1436711 Neutrophil Abs 3.32 10e9/L 02/28/2018 CBC 5984032 Lymphocyte Abs 2.55 10e9/L 02/28/2018 CBC 5521760 Monocyte Abs 0.47 10e9/L 02/28/2018 CBC 3230113 Eosinophil Abs 0.05 10e9/L 02/28/2018 CBC 4280293 RDW-SD 40.8 fL 02/28/2018 CBC 9176327 Basophil Abs 0.01 10e9/L 02/28/2018 CHEM 14 3301974 AST 17 U/L 02/28/2018 CHEM 14 6170072 ALT 17 U/L 02/28/2018 CHEM 14 6313352 BUN 20 mg/dL 02/28/2018 CHEM 14 1979869 ALBUMIN 4.1 g/dL 02/28/2018 CHEM 14 2449659 CHLORIDE 97 mmol/L 02/28/2018 CHEM 14 2604939 Bili Total 1.3 mg/dL 02/28/2018 CHEM 14 9432431 ALK PHOS 78 U/L 02/28/2018 CHEM 14 2120845 SODIUM 135 mmol/L 02/28/2018 CHEM 14 2041176 CREATININE 1.09 mg/dL 02/28/2018 CHEM 14 9900569 CALCIUM 9.6 mg/dL 02/28/2018 CHEM 14 9853718 POTASSIUM 3.8 mmol/L 02/28/2018 CHEM 14 2916635 TOTAL PROTEIN 7.3 g/dL 02/28/2018 CHEM 14 1443874 GLUCOSE 349 mg/dL 02/28/2018 CHEM 14 4247359 Bicarbonate 29 mmol/L 02/28/2018 CHEM 14 2165901 AGAP 9 mmol/L 02/28/2018 [place] Spotted Fever Igg/Igm 314155 FEI MT SPOTTED FEVER IGM EIA . 09/05/2017 [place] Spotted Fever Igg/Igm 032421 RMSF, IGM 0.17 index 09/05/2017 [place] Spotted Fever Igg/Igm 106741 FEI MT SPOTTED FEVER IGG EIA FLEX . 09/05/2017 [place] Spotted Fever Igg/Igm 966100 RMSF, IGG SCREEN-FLEX Positive 09/05/2017 Fei Mtn Spot'D Fev Igg 518738 RMSF, IGG -TITER IFA <1:64 11/2016 Ehrlichia Chaffeensis Antibody Igm 322470 EHRLICHIA CHAFFEENSIS IGM < 1:16 09/03/2017 Ehrlichia Chaffeensis Antibody Igg 578188 EHRLICHIA CHAFFEENSIS IGG <1:64 09/03/2017 Lymes Disease Total Antibodies With Western Blot Reflex B. BURGDORFERI, IGG/IGM 0.223 08/30/2017 Lymes Disease Total Antibodies With Western Blot Reflex C-Reactive Protein Qnt Crqnt CRP 0.00 mg/dl 08/27/2017 Sed Rate Ord21 ESR 8 mm/hr 08/27/2017 Comp Metabolic Aej073 NA 135 mEq/L 08/16/2017 Comp Metabolic Plt756 K 4.1 mEq/L 08/16/2017 Comp Metabolic Zac828 CL 98 mEq/L 08/16/2017 Comp Metabolic Zkz923 CO2 28.0 mEq/L 08/16/2017 Comp Metabolic Jeq038 ANION GAP 13 08/16/2017 Comp Metabolic Mca418 GLUCOSE 299 mg/dL 08/16/2017 Comp Metabolic Znc580 Creat 0.9 mg/dL 08/16/2017 Comp Metabolic Cpu896 eGFR 90 ml/min/1.73m2 08/16/2017 Comp Metabolic Byb553 BUN 20 mg/dL 08/16/2017 Comp Metabolic Wck319 B/C Ratio 21.5 Ratio 08/16/2017 Comp Metabolic Nbs006 CALCIUM 9.2 mg/dL 08/16/2017 Comp Metabolic Phq872 ALK PHOS 84 U/L 08/16/2017 Comp Metabolic Cgk125 AST(SGOT) 19 U/L 08/16/2017 Comp Metabolic Bcz571 ALT(SGPT) 24 U/L 08/16/2017 Comp Metabolic Fyy057 BILI T 1.1 mg/dL 08/16/2017 Comp Metabolic Pxn925 ALBUMIN 4.2 g/dL 08/16/2017 Comp Metabolic Ksw255 TPRO 7.2 g/dL 08/16/2017 Comp Metabolic Yqy342 GLOB 3.0 g/dL 08/16/2017 Comp Metabolic Krw746 A/G Ratio 1.4 Ratio 08/16/2017 Comp Metabolic Skj646 Osmo 284 mOsmo 08/16/2017 %Hba1C Egk155 % HbA1c 95721-0 12.5 % 08/16/2017 %Hba1C Sxb778 Gluc Ave 312 mg/dL 08/16/2017 Urine Culture Ucult Preliminary NO Growth Day 1 06/23/2017 Urine Culture Ucult Complete NO Growth Day 2 06/23/2017 C RAP A SC [id number] Strep A Negative 06/08/2017 %Hba1C Isz502 % HbA1c 31941-8 9.5 % 05/04/2017 %Hba1C Nju164 Gluc Ave 226 mg/dL 05/04/2017 Tsh Ord6 [...] 31.7 pg 05/04/2017 Cbc With Differential Ord2 Mower% 8.5 % 05/04/2017 Cbc With Differential Ord2 [...] 2.48 K/ul 05/04/2017 Cbc With Differential Ord2 Mower ABS# 0.5 K/ul 05/04/2017 Cbc With Differential Ord2 Eos ABS# 0.1 K/ul 05/04/2017 Cbc With Differential Ord2 Baso ABS# 0.0 K/ul 05/04/2017 Comp Metabolic Hzs120 NA 135 mEq/L 05/04/2017 Comp Metabolic Wnd240 K 4.2 mEq/L 05/04/2017 Comp Metabolic Hsj301 CL 99 mEq/L 05/04/2017 Comp Metabolic Ply021 CO2 26.0 mEq/L 05/04/2017 Comp Metabolic Ddt631 ANION GAP 14 05/04/2017 Comp Metabolic Dem005 GLUCOSE 277 mg/dL 05/04/2017 Comp Metabolic Hhk424 Creat 0.9 mg/dL 05/04/2017 Comp Metabolic Mdt295 eGFR 96 ml/min/1.73m2 05/04/2017 Comp Metabolic Clp153 BUN 23 mg/dL 05/04/2017 Comp Metabolic Czg438 B/C Ratio 26.1 Ratio 05/04/2017 Comp Metabolic Aui900 CALCIUM 8.9 mg/dL 05/04/2017 Comp Metabolic Oaf487 ALK PHOS 81 U/L 05/04/2017 Comp Metabolic Pso077 AST(SGOT) 21 U/L 05/04/2017 Comp Metabolic Pji738 ALT(SGPT) 27 U/L 05/04/2017 Comp Metabolic Nvl995 BILI T 1.2 mg/dL 05/04/2017 Comp Metabolic Ndb874 ALBUMIN 4.0 g/dL 05/04/2017 Comp Metabolic Pyr804 TPRO 6.7 g/dL 05/04/2017 Comp Metabolic Eyg695 GLOB 2.7 g/dL 05/04/2017 Comp Metabolic Dfg668 A/G Ratio 1.5 Ratio 05/04/2017 Comp Metabolic Ate896 Osmo 284 mOsmo 05/04/2017 C A/B FLU 8475316 Influenza A Scr Negative 02/16/2017 C A/B FLU 3903224 Influenza B Scr Positive 02/16/2017 Cbc With [...] 30.3 pg 05/23/2016 Cbc With Differential Ord2 Mower% 8.8 % 05/23/2016 Cbc With Differential Ord2 [...] 2.07 K/ul 05/23/2016 Cbc With Differential Ord2 Mower ABS# 0.5 K/ul 05/23/2016 Cbc With Differential Ord2 Eos ABS# 0.1 K/ul 05/23/2016 Cbc With Differential Ord2 Baso ABS# 0.0 K/ul 05/23/2016 Lipid Ord30 CHOL 397 mg/dL 05/17/2016 Lipid Ord30 HDL 48.0 mg/dl 05/17/2016 Lipid Ord30 TRIG 578 mg/dL 05/17/2016 Lipid Ord30 LDL Unable to calculate Due to elevated triglycerides mg/dL 05/17/2016 Lipid Ord30 C/HDL 8.3 Ratio 05/17/2016 %Hba1C Brg709 % HbA1c 86579-7 12.4 % 05/16/2016 %Hba1C Byq238 Gluc Ave 309 mg/dL 05/16/2016 Cbc With [...] 30.4 pg 05/15/2016 Cbc With Differential Ord2 Mower% 7.8 % 05/15/2016 Cbc With Differential Ord2 [...] 2.04 K/ul 05/15/2016 Cbc With Differential Ord2 Mower ABS# 0.5 K/ul 05/15/2016 Cbc With Differential Ord2 Eos ABS# 0.1 K/ul 05/15/2016 Cbc With Differential Ord2 Baso ABS# 0.0 K/ul 05/15/2016 Tsh Ord6 hTSH II 1.70 uIU/mL 05/15/2016 Comp Metabolic Idk574 NA 135 mEq/L 05/15/2016 Comp Metabolic Sit239 K 3.9 mEq/L 05/15/2016 Comp Metabolic Oqu111 CL 96 mEq/L 05/15/2016 Comp Metabolic Bmt925 CO2 27.0 mEq/L 05/15/2016 Comp Metabolic Mfn467 ANION GAP 16 05/15/2016 Comp Metabolic Kyg134 GLUCOSE 183 mg/dL 05/15/2016 Comp Metabolic Spf663 Creat 1.1 mg/dL 05/15/2016 Comp Metabolic Vtn762 eGFR 71 ml/min/1.73m2 05/15/2016 Comp Metabolic Nvl932 BUN 17 mg/dL 05/15/2016 Comp Metabolic Vuj292 B/C Ratio 14.9 Ratio 05/15/2016 Comp Metabolic Lzf963 CALCIUM 9.6 mg/dL 05/15/2016 Comp Metabolic Nsf654 ALK PHOS 100 U/L 05/15/2016 Comp Metabolic Hry480 AST(SGOT) 20 U/L 05/15/2016 Comp Metabolic Iiq207 ALT(SGPT) 20 U/L 05/15/2016 Comp Metabolic Kmb183 BILI T 1.3 mg/dL 05/15/2016 Comp Metabolic Lkz328 ALBUMIN 4.6 g/dL 05/15/2016 Comp Metabolic Zur550 TPRO 8.1 g/dL 05/15/2016 Comp Metabolic Qrh032 GLOB 3.5 g/dL 05/15/2016 Comp Metabolic Jya085 A/G Ratio 1.3 Ratio 05/15/2016 Comp Metabolic Sav415 Osmo 276 mOsmo 05/15/2016 Review of Systems System Result Effective Dates Constitutional recent illness 10/24/2018 Constitutional No anorexia [...] Result Effective Dates Notes Full Exam - Orthopedics Constitutional general appearance [...] of skin Location: face 05/04/2017 patch left sikh Full Exam - General 1994 Constitutional general [...] CPT-4: J3301 09/30/2018 THER/PROPH/DIAG INJ SC/IM CPT-4: 01130 09/11/2018 TRIAMCINOLONE ACET INJ NOS CPT-4: J3301 09/11/2018 IMMUNIZATION ADMIN CPT -4: 60878 07/22/2018 FLU VAC NO PRSV 4 MENA 3 YRS+ CPT-4: 68776 07/22/2018 TRIAMCINOLONE ACET INJ NOS CPT-4: J3301 06/28/2018 KETOROLAC TROMETHAMINE INJ CPT-4: J1885 05/02/2018 FLU VAC NO PRSV 4 MENA 3 YRS+ CPT-4: 80927 08/16/2017 IMMUNIZATION ADMIN CPT -4: 42696 08/16/2017 URINALYSIS NONAUTO W/O SCOPE CPT-4: 97362 06/21/2017 TRIAMCINOLONE ACET INJ NOS CPT-4: J3301 05/04/2017 THER/PROPH/DIAG INJ SC/IM CPT-4: 40702 05/04/2017 TRIAMCINOLONE ACET INJ NOS CPT-4: J3301 02/16/2017 ROCEPHIN, PER 250 MG CPT-4: J0696 02/16/2017 ROCEPHIN, PER 250 MG CPT-4: J0696 10/06/2016 URINALYSIS NONAUTO W/O SCOPE CPT-4: 55183 07/18/2016 TRIAMCINOLONE ACET INJ NOS CPT-4: J3301 01/20/2016 Vital Signs Date Vital 10/24/2018 Blood Pressure 1: 130/70 Code : 8480-6 Heart Rate 1: 95 bpm Height: 6'2" SpO2: 96% 10/23/2018 Blood Pressure 1: 100/70 Code : 8480-6 Blood Pressure 2: 102/70 Code: 8480-6 BMI: 33.3 Code: 59695-4 Heart Rate 1: 106 bpm Height: 6'2" SpO2: 98% Weight: 259 lbs 10/21/2018 Blood Pressure 1: 140/90 Code : 8480-6 BMI: 32.9 Code : 55867-4 Heart Rate 1 : 96 bpm Height: 6'2" SpO2: 92% Weight: 256 lbs 10/17/2018 Blood Pressure 1: 110/68 Code : 8480-6 BMI: 32.9 Code : 42483-4 Heart Rate 1 : 82 bpm Height: 6'2" SpO2: 97% Weight: 256 lbs 10/14/2018 Blood Pressure 1: 124/70 Code : 8480-6 BMI: 33.6 Code : 83517-1 Heart Rate 1 : 76 bpm Height: 6'2" SpO2: 99% Temperature: 36.3 (C) / 97.3 (F) Weight: 262 lbs 09/30/2018 Blood Pressure 1: 138/82 Code : 8480-6 BMI: 33.6 Code : 42444-7 Heart Rate 1 : 82 bpm Height: 6'2" SpO2: 98% Temperature: 36.3 (C) / 97.3 (F) Weight: 262 lbs 09/09/2018 Blood Pressure 1: 140/80 Code : 8480-6 BMI: 33.0 Code : 74133-9 Heart Rate 1 : 97 bpm Height: 6'2" SpO2: 93% Temperature: 36.8 (C) / 98.2 (F) Weight: 257 lbs 07/22/2018 Blood Pressure 1: 120/78 Code : 8480-6 BMI: 31.6 Code : 09437-6 Heart Rate 1 : 87 bpm Height: 6'2" SpO2: 98% Weight: 246 lbs 07/16/2018 Blood Pressure 1: 132/74 Code : 8480-6 BMI: 31.2 Code : 46500-1 Heart Rate 1 : 90 bpm Height: 6'2" SpO2: 96% Weight: 243 lbs 07/01/2018 Blood Pressure 1: 142/82 Code : 8480-6 BMI: 31.8 Code : 50889-2 Heart Rate 1 : 88 bpm Height: 6'2" SpO2: 98% Weight: 248 lbs 06/28/2018 Blood Pressure 1: 132/76 Code : 8480-6 BMI: 31.8 Code : 67314-8 Heart Rate 1 : 107 bpm Height: 6'2" SpO2: 98% Temperature: 37.9 (C) / 100.3 (F) Weight: 248 lbs 06/18/2018 Blood Pressure 1: 138/82 Code : 8480-6 BMI: 31.8 Code : 48414-4 Heart Rate 1 : 82 bpm Height: 6'2" SpO2: 97% Weight: 248 lbs 06/04/2018 Blood Pressure 1: 128/84 Code : 8480-6 BMI: 33.9 Code : 46990-4 Heart Rate 1 : 86 bpm Height: 6'2" SpO2: 95% Weight: 264 lbs 05/13/2018 Blood Pressure 1: 130/80 Code : 8480-6 BMI: 31.1 Code : 66229-1 Heart Rate 1 : 100 bpm Height: 6'2" SpO2: 94% Weight: 242 lbs 05/02/2018 Blood Pressure 1: 134/84 Code : 8480-6 BMI: 31.2 Code : 87664-8 Heart Rate 1 : 93 bpm Height: 6'2" SpO2: 98% Weight: 243 lbs 04/29/2018 Blood Pressure 1: 142/88 Code : 8480-6 BMI: 31.6 Code : 88381-3 Heart Rate 1 : 96 bpm Height: 6'2" SpO2: 96% Temperature: 36.7 (C) / 98.1 (F) Weight: 246 lbs 03/13/2018 Blood Pressure 1: 120/76 Code : 8480-6 BMI: 30.9 Code : 79058-4 Heart Rate 1 : 112 bpm Height: 6'2" SpO2: 97% Weight: 241 lbs 03/07/2018 Blood Pressure 1: 10878 Code : 8480-6 BMI: 30.0 Code : 11858-9 Heart Rate 1 : 87 bpm Height: 6'2" SpO2: 98% Weight: 234 lbs 02/28/2018 Blood Pressure 1: 106/74 Code : 8480-6 BMI: 30.0 Code : 59859-8 Heart Rate 1 : 101 bpm Height: 6'2" SpO2: 98% Temperature: 36.4 (C) / 97.5 (F) Weight: 234 lbs 02/13/2018 Blood Pressure 1: 110/78 Code : 8480-6 BMI: 30.0 Code : 82544-6 Heart Rate 1 : 106 bpm Height: 6'2" SpO2: 98% Weight: 234 lbs 01/29/2018 Blood Pressure 1: 106/68 Code : 8480-6 BMI: 30.0 Code : 35760-2 Heart Rate 1 : 108 bpm Height: 6'2" SpO2: 98% Weight: 234 lbs 08/27/2017 Blood Pressure 1: 134/76 Code : 8480-6 Heart Rate 1: 98 bpm Height: SpO2: 97% Weight: 08/16/2017 Blood Pressure 1: 128/80 Code : 8480-6 BMI: 32.0 Code : 62211-1 Heart Rate 1 : 94 bpm Height: [...] Code : 8480-6 BMI: 31.8 Code : 26357-5 Heart Rate 1 : 102 bpm Height: [...] Code : 8480-6 BMI: 31.8 Code : 63372-9 Heart Rate 1 : 85 bpm Height: 6'2" SpO2: 96% Temperature: 36.6 (C) / 97.9 (F) Weight: 248 lbs 02/12/2017 Blood Pressure 1: 126/76 Code : 8480-6 BMI: 31.8 Code : 17260-5 Heart Rate 1 : 106 bpm Height: 6'2" SpO2: 91% Weight: 248 lbs 02/05/2017 Blood Pressure 1: 146/86 Code : 8480-6 BMI: 31.9 Code : 02806-1 Heart Rate 1 : 98 bpm Height: 6'2" SpO2: 87% Temperature: 36.7 (C) / 98.0 (F) Weight: 248 lbs 8 oz 01/29/2017 Blood Pressure 1: 132/84 Code : 8480-6 BMI: 31.8 Code : 63578-9 Heart Rate 1 : 83 bpm Height: 6'2" SpO2: 97% Weight: 248 lbs 10/13/2016 Blood Pressure 1: 128/72 Code : 8480-6 Heart Rate 1: 86 bpm SpO2: 94% 10/09/2016 Blood Pressure 1: 12868 Code : 8480-6 Heart Rate 1: 136 bpm SpO2: 94% Temperature: 36.8 (C) / 98.2 (F) 10/06/2016 Blood Pressure 1: 140/80 Code : 8480-6 BMI: 32.1 Code : 03344-3 Heart Rate 1 : 94 bpm Height: 6'2" SpO2: 95% Weight: 250 lbs 07/18/2016 Blood Pressure 1: 128/86 Code : 8480-6 BMI: 32.1 Code : 93211-9 Heart Rate 1 : 89 bpm Height: 6'2" SpO2: 96% Weight: 250 lbs 06/22/2016 Blood Pressure 1: 118/70 Code : 8480-6 BMI: 32.1 Code : 61799-1 Heart Rate 1 : 70 bpm Height: 6'2" SpO2: 97% Weight: 250 lbs 05/23/2016 Blood Pressure 1: 128/80 Code : 8480-6 BMI: 32.1 Code : 67958-7 Heart Rate 1 : 76 bpm Height: 6'2" SpO2: 98% Weight: 250 lbs 05/15/2016 Blood Pressure 1: 110/90 Code : 8480-6 BMI: 31.3 Code : 35379-0 Heart Rate 1 : 111 bpm Height: 6'2" SpO2: 97% Temperature: 36.6 (C) / 97.8 (F) Weight: 244 lbs 01/20/2016 Blood Pressure 1: 128/76 Code : 8480-6 BMI: 33.0 Code : 75157-9 Heart Rate 1 : 103 bpm Height: 6'2" SpO2: 95% Weight: 257 lbs Functional Status No Functional Status data History of Present Illness Symptom Name Status Result Effective Date Notes Limitation on Activities is incapacitating 10/24/2018 None [...] data Encounters Encounter Performer Location Codes Date ([id number]) 34307 EST. PATIENT, LEVEL II Diagnosis: Pain in joints of right hand[ICD10: M25.541] Diagnosis: Trigger finger, right middle finger[ICD10: M65.331] Marcela Ha MD, [facility] CPT-4: 41908 10/24/2018 ([id number]) 09946 EST. PATIENT, LEVEL IV Diagnosis: Essential (primary) hypertension[ICD10: I10] Diagnosis: Type 2 diabetes mellitus with foot ulcer[ICD10: E11.621] Melida Ha MD [facility] CPT-4: 48212 10/23/2018 ([id number]) 95265 EST. PATIENT, LEVEL III Diagnosis: Cellulitis of right finger[ICD10: L03.011] Diagnosis: Type 2 diabetes mellitus with foot ulcer[ICD10: E11.621] Diagnosis: Pain in right hand[ICD10: M79.641] Melida Ha MD, [facility] CPT-4: 71948 10/21/2018 33484 EST. PATIENT, LEVEL III Diagnosis: Spontaneous ecchymoses[ICD10: R23.3] Diagnosis: Cellulitis of right lower limb[ICD10: L03.115] Diagnosis: Cellulitis of left lower limb[ICD10: L03.116] Madeline Ha MD, [facility] CPT-4: 48342 10/17/2018 ([id number]) 02750 EST. PATIENT, LEVEL III Diagnosis: Cough[ICD10: R05] Diagnosis: Acute bronchitis, unspecified[ICD10: J20.9] Melida Ha MD, [facility] CPT-4: 08118 10/14/2018 05064 EST. PATIENT, LEVEL III Diagnosis: Acute laryngopharyngitis[ICD10: J06.0] Diagnosis: Cough[ICD10: R05] Madeline Ha MD, [facility] CPT-4: 81319 09/30/2018 ([id number]) 17260 EST. PATIENT, LEVEL III Diagnosis: Acute recurrent maxillary sinusitis[ICD10: J01.01] Diagnosis: Cough[ICD10: R05] Diagnosis: Type 2 diabetes mellitus with hyperglycemia[ICD10: E11.65] Marcela Ha MD, [facility] CPT-4: 36909 09/09/2018 ([id number]) 03065 EST. PATIENT, LEVEL IV Diagnosis: Essential (primary) hypertension[ICD10: I10] Diagnosis: Mixed hyperlipidemia[ICD10: E78.2] Diagnosis: Bipolar disorder, current episode depressed, moderate[ICD10: F31.32] Diagnosis: Type 2 diabetes mellitus with other specified complication[ICD10: E11.69] Melida Ha MD, [facility] CPT-4: 68606 2017 ([id number]) 78414 EST. PATIENT, LEVEL III Diagnosis: Insomnia due to medical condition[ICD10: G47.01] Marcela Ha MD, [facility] CPT-4: 62040 07/16/2018 ([id number]) Miscellaneous no charge Diagnosis: Cough[ICD10: R05] Madeline Ha MD, [facility] CPT-4: 53206 07/01/2018 93997 EST. PATIENT, LEVEL III Diagnosis: Cough[ICD10: R05] Diagnosis: Acute laryngopharyngitis[ICD10: J06.0] Diagnosis: Other allergic rhinitis[ICD10: J30.89] Madeline Ha MD, [facility] CPT-4: 37697 06/28/2018 ([id number]) 44880 EST. PATIENT, LEVEL IV Diagnosis: Type 2 diabetes mellitus with hyperglycemia[ICD10: E11.65] Diagnosis: Essential (primary) hypertension[ICD10: I10] Melida Ha MD, [facility] CPT-4: 40990 06/18/2018 ([id number]) 17036 EST. PATIENT, LEVEL IV Diagnosis: Type 2 diabetes mellitus with hyperglycemia[ICD10: E11.65] Diagnosis: Essential (primary) hypertension[ICD10: I10] Diagnosis: Localized edema[ICD10: R60.0] Melida Ha MD, [facility] CPT- 4: 72092 06/04/2018 ([id number]) 70069 EST. PATIENT, LEVEL III Diagnosis: Type 2 diabetes mellitus with hyperglycemia[ICD10: E11.65] Diagnosis: Myalgia[ICD10: M79.1] Diagnosis: Pain in right hip[ICD10: M25.551] Diagnosis: Pain in left hip[ICD10: M25.552] Marcela Ha MD, [facility] CPT-4: 29199 05/13/2018 ([id number]) 06469 EST. PATIENT, LEVEL III Diagnosis: Myalgia[ICD10: M79.1] Diagnosis: Pain in right hip[ICD10: M25.551] Diagnosis: Pain in left hip[ICD10: M25.552] Marcela Ha MD, [facility] CPT-4: 35917 05/02/2018 ([id number]) 96566 EST. PATIENT, LEVEL IV Diagnosis: Essential (primary) hypertension[ICD10: I10] Diagnosis: Type 2 diabetes mellitus with hyperglycemia[ICD10: E11.65] Diagnosis: Major depressive disorder, single episode, moderate[ICD10: F32.1] Diagnosis: Myalgia[ICD10: M79.1] Marcela Ha MD, [facility] CPT-4: 24501 04/29/2018 ([id number]) 93278 EST. PATIENT, LEVEL IV Diagnosis: Type 2 diabetes mellitus with hyperglycemia[ICD10: E11.65] Diagnosis: Essential (primary) hypertension[ICD10: I10] Diagnosis: Major depressive disorder, single episode, moderate[ICD10: F32.1] Melida Ha MD, [facility] CPT-4: 97070 03/13/2018 ([id number]) 63178 EST. PATIENT, LEVEL III Diagnosis: Type 2 diabetes mellitus with hyperglycemia[ICD10: E11.65] Diagnosis: Bipolar disorder, current episode depressed, moderate[ICD10: F31.32] Diagnosis: Orthostatic hypotension[ICD10: I95.1] Marcela Ha MD, [facility] CPT-4: 56774 03/07/2018 ([id number]) 75400 EST. PATIENT, LEVEL IV Diagnosis: Type 2 diabetes mellitus with hyperglycemia[ICD10: E11.65] Diagnosis: Major depressive disorder, single episode, moderate[ICD10: F32.1] Diagnosis: Orthostatic hypotension[ICD10: I95.1] Diagnosis: Other fatigue[ICD10: R53.83] Marcela Ha MD, [facility] CPT-4: 48164 02/28/2018 12743 EST. PATIENT, LEVEL IV Diagnosis: Other fatigue[ICD10: R53.83] Diagnosis: Other malaise[ICD10: R53.81] Diagnosis: Gastro-esophageal reflux disease without esophagitis[ICD10: K21.9] Madeline Ha MD, [facility] CPT-4: 03640 02/13/2018 ([id number]) 82721 EST. PATIENT, LEVEL IV Diagnosis: Type 2 diabetes mellitus with foot ulcer[ICD10: E11.621] Diagnosis: Essential (primary) hypertension[ICD10: I10] Diagnosis: Gastro-esophageal reflux disease without esophagitis[ICD10: K21.9] Marcela Ha MD, [facility] CPT-4: 82568 01/29/2018 46331 EST. PATIENT, LEVEL III Diagnosis: Other malaise[ICD10: R53.81] Diagnosis: Other fatigue[ICD10: R53.83] Diagnosis: Pain in right shoulder[ICD10: M25.511] Diagnosis: Pain in left shoulder[ICD10: M25.512] Madeline Ha MD, [facility] CPT-4: 41448 08/27/2017 ([id number]) 23721 EST. PATIENT, LEVEL IV Diagnosis: Essential (primary) hypertension[ICD10: I10] Diagnosis: Type 2 diabetes mellitus with hyperglycemia[ICD10: E11.65] Diagnosis: VACCIN FOR INFLUENZA[ICD10: Z23] Melida Ha MD, [facility] CPT-4: 29725 08/16/2017 84288 EST. PATIENT, LEVEL III Diagnosis: Zoster without complications[ICD10: B02.9] Madeline Ha MD, [facility] CPT-4: 86579 07/26/2017 ([id number]) 02164 EST. PATIENT, LEVEL III Diagnosis: Cellulitis of right lower limb[ICD10: L03.115] Marcela Ha MD, [facility] CPT-4: 71550 07/03/2017 71731 EST. PATIENT, LEVEL II Diagnosis: Laceration without foreign body of left forearm, initial encounter[ ICD10: S51.812A] Marcela Ha MD, [facility] CPT-4: 12058 06/29/2017 ([id number]) 17379 EST. PATIENT, LEVEL III Diagnosis: Cellulitis of right lower limb[ICD10: L03.115] Diagnosis: Type 2 diabetes mellitus with foot ulcer[ICD10: E11.621] Marcela Ha MD , [facility] CPT-4: 69609 06/18/2017 ([id number]) 46256 EST. PATIENT, LEVEL IV Diagnosis: Cellulitis of right lower limb[ICD10: L03.115] Diagnosis: Acute laryngopharyngitis[ICD10: J06.0] Diagnosis: Gastro-esophageal reflux disease without esophagitis[ICD10: K21.9] Marcela Ha MD, [facility] CPT-4: 07900 06/07/2017 ([id number]) 71292 EST. PATIENT, LEVEL III Diagnosis: Type 2 diabetes mellitus with hyperglycemia[ICD10: E11.65] Diagnosis: Insect bite (nonvenomous) of abdominal wall, initial encounter[ICD10 : S30.861A] Marcela Ha MD, [facility] CPT-4: 49106 05/17/2017 ([id number]) 52227 EST. PATIENT, LEVEL III Diagnosis: Allergic contact dermatitis due to plants, except food[ICD10: L23.7] Melida Ha MD, [facility] CPT-4: 01843 05/04/2017 ([id number]) 98150 EST. PATIENT, LEVEL III Diagnosis: Essential (primary) hypertension[ICD10: I10] Marcela Ha MD, [facility] CPT-4: 76756 03/15/2017 ([id number]) 98172 EST. PATIENT, LEVEL III Diagnosis: Cough[ICD10: R05] Diagnosis: Essential (primary) hypertension[ICD10: I10] Marcela Ha MD, [facility] CPT-4: 00586 03/01/2017 ([id number]) 88326 EST. PATIENT, LEVEL III Diagnosis: Cough[ICD10: R05] Diagnosis: Nasal congestion[ICD10: R09.81] Diagnosis: Acute recurrent maxillary sinusitis[ICD10: J01.01] Marcela Ha MD, [facility] CPT-4: 47123 02/16/2017 ([id number]) 61344 EST. PATIENT, LEVEL III Diagnosis: Type 2 diabetes mellitus with hyperglycemia[ICD10: E11.65] Marcela Ha MD, [facility] CPT-4: 50832 02/12/2017 ([id number]) 16500 EST. PATIENT, LEVEL IV Diagnosis: Type 2 diabetes mellitus with hyperglycemia[ICD10: E11.65] Diagnosis: Muscle weakness (generalized)[ICD10: M62.81] Diagnosis: Disorientation, unspecified[ICD10: R41.0] Marcela Ha MD, [facility] CPT-4: 04259 02/05/2017 ([id number]) Patient admitted to the hospital from clinic (NO CHARGE) Diagnosis: Type 2 diabetes mellitus with hyperglycemia[ICD10: E11.65] Diagnosis: Disorientation, unspecified[ICD10: R41.0] Diagnosis: Muscle weakness (generalized)[ICD10: M62.81] Marcela Ha MD, [facility] CPT-4: 82954G 01/29/2017 ([id number]) Miscellaneous no charge Diagnosis: Cellulitis of right lower limb[ICD10: L03.115] Marcela Ha MD [facility] CPT-4: 86837 10/13/2016 ([id number]) Miscellaneous no charge Diagnosis: Type 2 diabetes mellitus with foot ulcer[ICD10: E11.621] Diagnosis: Pain in right foot[ICD10: M79.671] Marcela Ha MD, [facility] CPT-4: 87933 10/09/2016 61607 EST. PATIENT, LEVEL II Diagnosis: Cellulitis of right lower limb[ICD10: L03.115] Marcela Ha MD [facility] CPT-4: 74127 10/06/2016 ([id number]) 00907 EST. PATIENT, LEVEL IV Diagnosis: Low back pain[ICD10: M54.5] Diagnosis: Other deformities of toe(s) (acquired), left foot[ICD10: M20.5X2] Diagnosis: Type 2 diabetes mellitus with foot ulcer[ICD10: E11.621] Marcela Ha MD , [facility] CPT-4: 66866 07/18/2016 ([id number]) 46493 EST. PATIENT, LEVEL III Diagnosis: Type 2 diabetes mellitus with hyperglycemia[ICD10: E11.65] Marcela Ha MD, [facility] CPT-4: 82750 06/22/2016 ([id number]) 15139 EST. PATIENT, LEVEL IV Diagnosis: Type 2 diabetes mellitus with hyperglycemia[ICD10: E11.65] Diagnosis: Mixed hyperlipidemia[ICD10: E78.2] Diagnosis: Other hemoglobinopathies[ICD10: D58.2] [facility] CPT-4: 45667 05/23/2016 [id number]) 10988 EST. PATIENT, LEVEL IV Diagnosis: Type 2 diabetes mellitus with other specified complication[ICD10: E11.69] Diagnosis: Dehydration[ICD10: E86.0] [facility] CPT-4: 83237 05/15/2016 ([id number]) OFFICE VISIT, NEW - LEVEL 3 Diagnosis: Allergic contact dermatitis due to plants, except food[ICD10: L23.7] [facility] CPT-4: 59402 01/20/2016 Plan of Care Planned Activity Notes Codes Status Date Visit Plan: Right hand-joint pain and swelling -negative for gout -treated for cellulitis right 2nd mcp joint -now having difficulty with long finger "locking" -Dr Ha in to evaluate patient and tape index and long finger in place-refer to Dr Mantilla for evaluation 10/24/2018 Patient Education: Patient Medication Summary Completed 10/24/2018 Care Plan: Referral Order SNOMED-CT : [id number] Pending 10/24/2018 Visit Plan: Hypotension - discussed [...] less controlled. 10/23/2018 Appointment: Melida Ha WPtel: [address] [place], [place] [phone] (15 min) Moderate 10/23/2018 Patient Education: Patient [...] plan. 10/21/2018 Appointment: [facility] [phone] [phone] [place] (30 min) Complex 10/21/2018 Patient [...] discharge. 10/17/2018 Appointment: Mad[facility] [phone] [facility] [place] (15 min) Moderate 10/17/2018 Patient Education: Patient [...] acutely worsen. 10/14/2018 Appointment: Marcela Oshea WPtel: [phone] (15 min) Moderate 10/14/2018 Patient Education: Patient Medication Summary Completed 10/14/2018 Care Plan: CHEST X-RAY 2VW FRONTAL&LATL LOINC : 93854-5 Pending 10/14/2018 Visit Plan: URI - Pt [...] A1C 09/09/2018 Appointment: Marcela Oshea WPtel: [phone] [phone] [place] (15 min) Moderate 09/09/2018 Patient Education: Patient Medication Summary Completed 09/09/2018 Patient Education: Patient Medication Summary Completed 09/06/2018 Patient Education: Cholesterol Management Completed 09/06/2018 Care Plan: Comp Metabolic Pending 09/06/2018 Care Plan: Cbc With Differential Pending 09/06/2018 Care Plan: %Hba1C LOINC : 78269-2 Pending 09/06/2018 Care Plan: Tsh Pending 09/06/2018 Care Plan: Lipid Pending 09/06/2018 Appointment: Marcela Oshea WPtel: [phone] [phone] [place] (15 min) Moderate 08/26/2018 Appointment: Marcela Oshea WPtel: [phone] [phone] [place] (15 min) Moderate 08/23/2018 Visit Plan: Hypertension [...] in clinic. 07/22/2018 App[facility]ment[facility] [phone] [facility] [place] (15 min) Moderate 07/22/2018 Patient Education: Patient [...] insomnia. 07/16/2018 Appointment: Marcela Oshea WPtel: [phone] [phone] (30 min) Complex 07/16/2018 Patient Education: Patient Medication Summary Completed 07/16/2018 Visit Plan: cough - improved - notify clinic if symptoms do not completely resolve, or with any questions or concerns. 07/01/2018 Appointment: Mad[facility] Kennedy [facility]el[facility] [phone] [facility] [place] (15 min) Moderate 07/01/2018 Patient [...] spray. 06/28/2018 Appointment: Madeline Kennedy WPtel: [phone] [facility] (15 min) Moderate 06/28/2018 Patient Education: Patient Medication Summary Completed 06/28/2018 Patient Education: Patient Medication Summary Completed 06/21/2018 Care Plan: C RAMBO [place] Pending 06/21/2018 Visit Plan: Diabetes Mellitus [...] 06/18/2018 Appointment: [facility] [phone] [facility] (15 min) Moderate 06/18/2018 Patient [...] swelling improves. 06/04/2018 Appointment: Melida Ha WPtel: [facility] (15 min) Moderate 06/04/2018 Patient Education: [...] allow for greater blood glucose control. Joint dide-cyoquuhx-hofzhhn- symptoms have improved -stop meloxicam due to upset stomach-call if symptoms return 05/13/2018 Appointment: Marcela Oshea WPtel: [phone] [phone] (30 min) Complex 05/13/2018 Patient Education: Patient Medication Summary Completed 05/13/2018 Visit Plan: Bilateral hip crta-tmkdbmyh-wjkgpip IM injection administered today for c/o continued myalgia/arthralgia. Patient to start taking Meloxicam 15mg PO daily. Advised to return to clinic if symptoms do not improve. 05/02/2018 Appointment: Marcela Oshea WPtel: [phone] (30 min) Complex 05/02/2018 [...] readings at home. Diabetes Mellitus -check labs Mmlboixk-lbbnspr-unkf bite-rx for doxycycline-follow up in 2 weeks 04/29/2018 Appointment: Marcela Oshea WPtel: [phone] [phone] (15 min) Moderate 04/29/2018 Patient Education: Patient Medication Summary Completed 04/29/2018 Appointment: [facility] [phone] [facility] (15 min) Moderate 04/15/2018 Appointment: Marcela [...] cymbalta 03/13/2018 Appointment: [facility]el[facility] [phone] [facility] (30 min) Complex 03/13/2018 Patient Education: Patient Medication Summary Completed 03/13/2018 Visit Plan: DM-continue same medications-monitor blood sugars routinely as directed -rx for new glucometer and test strips provided Bipolar-currently depressed-patient start on vraylar-follow up in 2 weeks, sooner if needed. Patient and verbalied understanding of plan. Hypotension- stay off losartan 03/07/2018 Appointment: Marcela Oshea WPtel: [phone] [phone] [place] (30 min) Complex 03/07/2018 Patient Education: Patient Medication Summary Completed 03/07/2018 Appointment: [facility]el[facility] [phone] [facility] [place] (15 min) Moderate 03/04/2018 Visit Plan: [...] patient. 02/28/2018 Appointment: [facility] [phone] [phone] (30 min) Complex 02/28/2018 Patient Education: [...] improving. 02/13/2018 Appointment: Mad[facility] Kennedy [facility] [phone] [facility] (15 min) Moderate 02/13/2018 Patient Education: Patient Medication Summary Completed 02/13/2018 Referral: Sun Glynn Patient informed. Referral info faxed. Completed Visit Plan: DM-weight loss-not checking blood sugars- patient sent for labs today HTN-low dgrku-ynljics-wmutw labs Callus of foot and fissue of heel-refer to Dr Glynn for evaluation Esophageal Reflux - the patient has been counseled against excessive intake of caffeine, spicy foods, peppermint , and cinnamon - all of which can exacerbate esophageal reflux. The patient is to take medications as prescribed and call the office if the symptoms are not improving. 01/29/2018 Appointment: Marcela Oshea WPtel: [phone] (30 min) Complex 01/29/2018 Patient Education: Patient Medication Summary Completed 01/29/2018 Care Plan: Comp Metabolic Cancelled 01/29/2018 Care Plan: Cbc With Differential Cancelled 01/29/2018 Care Plan: %Hba1C LOINC : 75397-6 Cancelled 01/29/2018 Care Plan: Referral Order SNOMED-CT : [id number] Cancelled 01/29/2018 Visit Plan: Fatigue, malaise, joint [...] or concerns. 08/27/2017 Appointment: Madeline Kennedy WPtel: [facility] (15 min) Moderate 08/27/2017 Patient Education: [...] - 08/16/2017 Appointment: [facility] [phone] [facility] (30 min) Complex 08/16/2017 Patient Education: Patient Medication Summary Completed 08/16/2017 Patient Education: Obesity Completed 08/16/2017 Appointment: [facility] [phone] [facility] (30 min) Complex 08/07/2017 Visit Plan: [...] considered contagious. 07/26/2017 Appointment: Madeline Kennedy WPtel: [facility] (15 min) Moderate 07/26/2017 Patient Education: Patient Medication Summary Completed 07/26/2017 Visit Plan: Cellulitis right foot-cultured today in the office-home health to reapply wound vac--appt with wound care on to evaluate for debridement- 07/03/2017 Appointment: Marcela Oshea WPtel: [phone] [place] [phone] ([facility] min) Complex 07/03/2017 Patient Education: Patient Medication Summary Completed 07/03/2017 Visit Plan: Abrasion left arm - Pt was instructed to keep the wound clean, wash with antibacterial soap, use triple antibiotic ointment, call if redness, pustular drainage, or any other acute concerns. 06/29/2017 Appointment: Marcela Oshea WPtel: [phone] (15 min) Moderate 06/29/2017 Patient Education: Patient [...] verbalized understanding of plan. 06/18/2017 Appointment: Marcela Oshae WPtel: [phone] (15 min) Moderate 06/18/2017 Patient Education: [...] prilosec 06/07/2017 Appointment: Marcela Oshea WPtel: [phone] [place] [phone] (10 min) Simple 06/07/2017 Patient Education: Patient [...] doxycycline 05/17/2017 Appointment: Marcela Oshea WPtel: [phone] [phone] (30 min) Complex 05/17/2017 [...] [facility] Hospital. 05/04/2017 Appointment: Marcela Oshea WPtel: [facility]5 [phone] [place] [address] (30 min) Complex 05/04/2017 Patient Education: Patient [...] home. Cough-resolved 03/15/2017 Appointment: Marcela Oshea WPtel: [facility]5 [phone] (15 min) Moderate 03/15/2017 Patient Education: Patient Medication Summary Completed 03/15/2017 Appointment: Marcela Oshea WPtel: [facility]5 [phone] (30 min) Complex 03/12/2017 [...] discussed 02/16/2017 Appointment: Marcela Oshea WPtel: [phone] [phone] (15 min) Moderate 02/16/2017 Patient Education: [...] less controlled. 02/12/2017 Appointment: Marcela Oshea WPtel: [facility]9 [phone] (30 min) Complex 02/12/2017 Patient Education: Patient Medication Summary Completed 02/12/2017 Appointment: Marcela Oshea WPtel: [facility]9 [phone] (30 min) Complex 02/06/2017 Visit Plan: [...] will consider 02/05/2017 Appointment: Marcela Oshea WPtel: [facility]6 [phone] [place] (30 min) Complex 02/05/2017 Patient Education: Patient Medication Summary Completed 02/05/2017 Appointment: Marcela Oshea WPtel: [phone] (30 min) Complex 01/30/2017 Visit Plan: Acute confusion-uncontrolled diabetes- chronically noncompliant with treatment and stopped his insulin several months ago-r/o stroke vs DKA-Dr Ha in to evaluate patient-plan to admit for further work up and treatment-patient's called and she transported him to the hospital 01/29/2017 Appointment: Marcela Oshea WPtel: [phone] [phone] [place] (30 min) Complex 01/29/2017 Patient Education: Patient Medication Summary Completed 01/29/2017 Patient Education: Obesity Completed 01/29/2017 Visit Plan: Right foot pain-MRI shows foreign body-appt with Dr Grewal for evaluation on Sunday. 10/13/2016 Appointment: Marcela Oshea WPtel: [phone] [place] [phone] [place] (15 min) Moderate 10/13/2016 Patient Education: Patient Medication Summary Completed 10/13/2016 Appointment: Marcela Oshea WPtel: [phone] [place] [phone] [place] (30 min) Complex 10/12/2016 Visit Plan: Right foot cirm-jumdvpnb-uednc washer dropped on foot-xray negative but pain continues to increase-recommend MRI of foot for further evaluation-refer to wound care for lesions on right foot, patient has diabetes and history of osteomyelitis-culture obtained today-continue oral abx- follow up in the office on , sooner if needed 10/09/2016 Visit Plan: Right foot cdcf-cjsegiov-prdfx washer dropped on foot-xray negative but pain continues to increase-recommend MRI of foot for further evaluation-refer to wound care for lesions on right foot, patient has diabetes and history of osteomyelitis-culture obtained today-continue oral abx- follow up in the office on , sooner if needed 10/09/2016 Visit Plan: Right foot itdk-hranhhtj-malul washer dropped on foot-xray negative but pain continues to increase-recommend MRI of foot for further evaluation-refer to wound care for lesions on right foot, patient has diabetes and history of osteomyelitis-culture obtained today-continue oral abx- follow up in the office on , sooner if needed 10/09/2016 Appointment: Marcela Oshea WPtel: [phone] [phone] (30 min) Complex 10/09/2016 Patient Education: Patient Medication Summary Completed 10/09/2016 Visit Plan: Cellulitis - continue with oral antibiotics as previously directed, return to clinic as previously directed, call for acute change in symptoms, worsening redness, warmth, discharge. 10/06/2016 Appointment: Marcela Oshea WPtel: [facility]5 [phone] (10 min) Simple 10/06/2016 Patient Education: Patient Medication Summary Completed 10/06/2016 Appointment: Marecla Oshea WPtel: [facility]5 [phone] (30 min) Complex 08/24/2016 Referral: Sun Glynn Referral Completed 07/21/2016 Visit Plan: Low back pain- history of spinal fusion- patient for xray lumbar spine-RX sent to [facility] pharmacy and instructed on use-topical voltaren samples provided and instructed on use. Ok to use tylenol as needed as well. The patient is to call the office if the pain is worsening or does not improve. Pressure ulcer left 4th toe-refer to Dr Glynn for evaluation 07/18/2016 Appointment: Marcela Oshea WPtel: [facility]5 [phone] (30 min) Complex 07/18/2016 Patient Education: Patient Medication Summary Completed 07/18/2016 Patient Education: Obesity Completed 07/18/2016 Care Plan: Referral Order SNOMED-CT : [id number] Cancelled 07/18/2016 Visit Plan: Diabetes Mellitus - [...] glucose control. 06/22/2016 Appointment: Marcela Oshea WPtel: [address] [place] [phone] (30 min) Complex 06/22/2016 Patient Education: Patient [...] CBC today 05/23/2016 Appointment: Marcela Oshea WPtel: [phone] (30 min) Complex 05/23/2016 Patient Education: [...] verbalized understanding of plan. 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 Low back pain- history of spinal fusion-patient for xray lumbar spine-RX sent to [facility] pharmacy and instructed on [...] for fracture from injury . Right foot ackw-cjnciqhd-ihhun washer dropped on foot-xray negative but pain [...] for fracture from injury . Right foot mtmh-ayiuoawe-edxnq washer dropped on foot-xray negative but pain [...] for fracture from injury . Right foot msfs-ousbutly-cwjpq washer dropped on foot-xray negative but pain continues to increase-recommend MRI of foot for further evaluation-refer to wound care for lesions on right foot, patient has diabetes and history of osteomyelitis-culture obtained today-continue oral abx-follow up in the office on , sooner if needed . Bilateral hip buxt-qvtekatv-pvwsrkc IM injection administered today for c/o continued myalgia/arthralgia. Patient to start taking Meloxicam 15mg PO daily. Advised to return to clinic if symptoms do not improve. . DM-weight loss-not checking blood sugars-patient sent for labs today HTN-low wmiuo-iiqnvih-qgrjg labs Callus of foot and fissue of [...] readings are starting to become less controlled. Mukcmnbti-eivvejlf-jbcfsetb to monitor Generalized weakness-refer for PT-patient refuses [...] allow for greater blood glucose control. Joint ahpe-xwxmrlyi-rdxqime-symptoms have improved -stop meloxicam due to upset [...] readings at home. Diabetes Mellitus -check labs Prkhjtlp-jhhbnrw-delc bite-rx for doxycycline-follow up in 2 weeks [...]
--- OUTSIDE RECORDS SUMMARY | 2019-01-01 15:11 | XMS REPORT | CCD ---
Author Author Madeline Kenndey MD, [facility] Address [address] [place] [address] Phone Care Team Providers Care Assistant Site Manager Name Role Phone PP Unavailable CCM Unavailable Summary Purpose Interface Exchange Insurance Providers Payer name Policy type / Coverage type Covered republican ID Effective Begin Date Effective End Date Blue Cross Blue Shield [facility] Blue Cross/Blue Shield [id number] 2016 Unknown Family history Father Diagnosis Age At Onset Hyperlipidemia Unknown Heart Attack Unknown Mother Diagnosis Age At Onset Hypertension Unknown Social History Social History Element Codes Description Effective Dates Marital status Unknown Mignon 01/20/2016 Number of children Unknown 4 01/20/2016 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/[address]: 050473215 Never smoker 01/20/[address]: 680797477 Never drinks alcohol 01/20/2016 Allergies, Adverse Reactions, [...] Fill Instructions valsartan 80 mg tablet RxNorm: 906656 1/2 Tablet(s) PO daily 04/20/2019 Active doxycycline hyclate 100 mg tablet RxNorm: 1236052 1 Tablet(s) PO BID 10/21/2018 10/27/2018 Active ketorolac 60 mg/2 mL intramuscular solution RxNorm: 2139912 Milliliter(s) IM 10/21/2018 10/21/2018 Inactive Levaquin 500 mg tablet RxNorm: 971964 1 Tablet(s) PO daily 10/23/2018 Inactive albuterol sulfate 2.5 mg/3 mL (0.083 %) solution for nebulization RxNorm: 026416 3 Milliliter(s) INH UD 10/14/2018 No Stop Date Active Tessalon Perles 100 mg capsule RxNorm: 878012 1-2 Capsule(s) PO TID PRN 10/14/2018 No Stop Date Active Levaquin 500 mg tablet RxNorm: 595927 1 Tablet(s) PO daily 08/201810/16/2018 Inactive Coreg 6.25 mg tablet RxNorm: 226376 TAKE ONE TABLET BY MOUTH TWICE A DAY 09/30/2018 03/28/2019 Active albuterol sulfate 2.5 mg/3 mL (0.083 %) solution for nebulization RxNorm: 621186 3 Milliliter(s) INH UD 09/30/201807/2018 Inactive Kenalog 40 mg/mL suspension for injection RxNorm: 6286360 1.5 Milliliter(s) Inj 09/30/2018 09/30/2018 Inactive Keflex 500 mg capsule RxNorm: 802337 1 Capsule(s) PO TID 201710/03/2018 Inactive prednisone 20 mg tablet RxNorm: 020332 2 Tablet(s) PO daily 09/29/2018 Inactive Kenalog 40 mg/mL suspension for injection RxNorm: 9055642 Milliliter(s) Inj 09/11/2018 09/11/2018 Inactive Zyrtec 10 mg tablet RxNorm: 3736953 1 Tablet(s) PO daily 09/0910/08/2018 Inactive Keflex 500 mg capsule RxNorm: 864804 1 Capsule(s) PO TID 201709/15/2018 Inactive Tresiba FlexTouch U-200 insulin 200 unit/mL (3 mL) subcutaneous pen RxNorm: 1154138 50 Unit(s) SQ daily 08/30/2018 08/29/2018 Inactive please give him 30 day supply Tresiba FlexTouch U-200 insulin 200 unit/mL (3 mL) subcutaneous pen RxNorm: 1094429 50 Unit(s) SQ daily 08/30/2018 09/28/2018 Inactive please give him 30 day supply Novolog Flexpen U-100 Insulin aspart 100 unit/mL subcutaneous RxNorm: 2217634 8 Unit(s) SQ AC 08/13/2018 No Stop Date Active Novolog Flexpen U-100 Insulin aspart 100 unit/mL subcutaneous RxNorm: 3533523 8 Unit(s) SQ AC 07/22/20182017 Inactive this is an update on his medication Novolog Flexpen U-100 Insulin aspart 100 unit/mL subcutaneous RxNorm: 9731902 12 Unit(s) SQ AC 07/05/20182017 Inactive this is an update on his medication Toujeo SoloStar U-300 Insulin 300 unit/mL (1.5 mL) subcutaneous pen RxNorm: 4453168 INJECT 50 UNITS UNDER THE SKIN DAILY 07/01/2018 08/29/2018 Inactive Mucinex 600 mg tablet, extended release RxNorm: 985627 1 Tablet(s) PO BID 06/28/2018 07/04/2018 Inactive Zofran 4 mg tablet RxNorm: 447046 1 Tablet(s) PO TID as needed nausea 06/28/2018 07/02/2018 Inactive Kenalog 40 mg/mL suspension for injection RxNorm: 0511315 Milliliter(s) Inj 06/28/2018 06/28/2018 Inactive Flonase Allergy Relief 50 mcg/actuation nasal spray, suspension RxNorm: 3707798 1 [place] NASAL BID 06/28/20182017 Inactive Lyrica 50 mg capsule RxNorm: 382499 Capsule(s) PO daily 201707/07/2018 Inactive Novolog Flexpen U-100 Insulin aspart 100 unit/mL subcutaneous RxNorm: 2065114 10 Unit(s) SQ AC 06/18/20182017 Inactive this is an update on his medication Lasix 20 mg tablet RxNorm: 066696 1 Tablet(s) PO BIW 201707/02/2018 Inactive atorvastatin 80 mg tablet RxNorm: 754675 1 Tablet(s) PO QHS 04/201812/06/2018 Active clonazepam 1 mg tablet RxNorm: 210738 2 Tablet(s) PO HS 201706/04/2019 Active clonazepam 1 mg tablet RxNorm: 784895 2 Tablet(s) PO HS as needed 06/10/2018 06/09/2018 Inactive Lyrica 50 mg capsule RxNorm: 788802 Capsule(s) PO daily 201707/08/2018 Inactive Lasix 20 mg tablet RxNorm: 150124 1 Tablet(s) PO TIW 201706/11/2018 Inactive Toujeo SoloStar U-300 Insulin 300 unit/mL (1.5 mL) subcutaneous pen RxNorm: 7899782 50 Unit(s) SQ daily 05/07/2018 06/30/2018 Inactive meloxicam 15 mg tablet RxNorm: 316367 15 Milligram(s) PO daily 05/02/2018 05/12/2018 Inactive ketorolac 30 mg/mL injection solution RxNorm: 487738 2 Milliliter(s) Inj 05/02/2018 05/02/2018 Inactive Toujeo SoloStar U-300 Insulin 300 unit/mL (1.5 mL) subcutaneous pen RxNorm: 8819386 45 Unit(s) daily 04/29/2018 Inactive clonazepam 1 mg tablet RxNorm: 980409 1 Tablet(s) PO Q8 as needed 04/29/2018 06/09/2018 Inactive doxycycline hyclate 100 mg tablet RxNorm: 1686748 1 Tablet(s) PO BID 04/29/2018 05/12/2018 Inactive Cymbalta 30 mg capsule,delayed release RxNorm: 452975 1 Capsule(s) PO QAM 03/13/2018 10/08/2018 Inactive Lexapro 10 mg tablet RxNorm: 686461 1 Tablet(s) PO QPM 201703/03/2018 Inactive Toujeo SoloStar U-300 Insulin 300 unit/mL (1.5 mL) subcutaneous pen RxNorm: 3263035 20 Unit(s) daily 02/28/2018 Inactive Protonix 40 mg tablet,delayed release RxNorm: 450528 1 Tablet(s) PO daily 01/29/2018 06/09/2018 Inactive clonazepam 1 mg tablet RxNorm: 726090 1 Tablet(s) PO Q8 as needed 12/12/2017 03/10/2018 Inactive Tamiflu 75 mg capsule RxNorm: 185944 1 Capsule(s) PO BID 201712/03/2017 Inactive doxycycline hyclate 100 mg capsule RxNorm: 6811083 1 Capsule(s) PO BID 09/07/2017 09/20/2017 Inactive doxycycline hyclate 100 mg capsule RxNorm: 6370696 1 Capsule(s) PO BID 08/27/2017 09/06/2017 Inactive prednisone 20 mg tablet RxNorm: 938521 2 Tablet(s) PO daily 08/31/2017 Inactive clopidogrel 75 mg tablet RxNorm: 994753 1 Tablet(s) PO daily 06/09/2018 Inactive atorvastatin 40 mg tablet RxNorm: 963787 1 Tablet(s) PO QHS 02/27/2018 Inactive losartan 25 mg tablet RxNorm: 825178 TAKE ONE TABLET BY MOUTH DAILY 08/22/2017 06/09/2018 Inactive Toujeo SoloStar 300 unit/mL (1.5 mL) subcutaneous insulin pen RxNorm: 4820115 45 Unit(s) daily 08/17/2017 08/20/2017 Inactive mupirocin 2 % topical ointment RxNorm: 347760 1 Application TOP TID to the lesions on chest 08/16/2017 08/25/2017 Inactive Toujeo SoloStar 300 unit/mL (1.5 mL) subcutaneous insulin pen RxNorm: 4650803 40 Unit(s) daily 08/16/2017 08/16/2017 Inactive valacyclovir 1 gram tablet RxNorm: 953741 1 Tablet(s) PO TID 08/01/2017 Inactive clonazepam 1 mg tablet RxNorm: 569103 1 Tablet(s) PO Q8 as needed 07/03/2017 09/30/2017 Inactive Levaquin 500 mg tablet RxNorm: 091837 1 Tablet(s) PO daily 06/25/2017 Inactive Levaquin 500 mg tablet RxNorm: 272702 1 Tablet(s) PO daily 06/21/2017 Inactive losartan 25 mg tablet RxNorm: 155652 1 Tablet(s) PO daily 201608/16/2017 Inactive nystatin 100,000 unit/mL oral suspension RxNorm: 469439 5 Milliliter(s) PO QID Swish et swallow 06/18/2017 06/17/2017 Inactive nystatin 100,000 unit/mL oral suspension RxNorm: 681135 5 Milliliter(s) PO QID Swish et swallow 06/18/2017 06/27/2017 Inactive Cipro 500 mg tablet RxNorm: 628141 1 Tablet(s) PO BID 201606/18/2017 Inactive Cipro 500 mg tablet RxNorm: 661506 1 Tablet(s) PO BID 201606/11/2017 Inactive Toujeo SoloStar 300 unit/mL (1.5 mL) subcutaneous insulin pen RxNorm: 1295654 INJECT 10 UNITS UNDER THE SKIN DAILY 06/12/2017 08/15/2017 Inactive Keflex 500 mg capsule RxNorm: 016589 1 Capsule(s) PO TID 201606/13/2017 Inactive doxycycline hyclate 100 mg capsule RxNorm: 0385422 1 Capsule(s) PO BID 05/17/2017 05/21/2017 Inactive doxycycline hyclate 100 mg capsule RxNorm: 9159293 1 Capsule(s) PO BID 05/11/2017 05/16/2017 Inactive losartan 25 mg tablet RxNorm: 056918 1 Tablet(s) PO daily 201606/17/2017 Inactive atorvastatin 40 mg tablet RxNorm: 160097 1 Tablet(s) PO daily 03/01/2017 08/23/2017 Inactive clopidogrel 75 mg tablet RxNorm: 006585 1 Tablet(s) PO daily 08/23/2017 Inactive Flonase Allergy Relief 50 mcg/actuation nasal spray, suspension RxNorm: 6313391 2 [place] NASAL daily 02/16/20172016 Inactive Augmentin 875 mg-125 mg tablet RxNorm: 456957 1 Tablet(s) PO BID 02/16/2017 02/22/2017 Inactive GET PROBIOTIC TO TAKE WHILE ON ABX Tamiflu 75 mg capsule RxNorm: 181727 1 Capsule(s) PO BID 201602/20/2017 Inactive ceftriaxone 500 mg solution for injection RxNorm: 6436566 1 Milliliter(s) Inj 02/16/2017 02/16/2017 Inactive Kenalog 40 mg/mL suspension for injection RxNorm: 6118524 1 Milliliter(s) Inj 02/16/2017 02/16/2017 Inactive Toujeo SoloStar 300 unit/mL (1.5 mL) subcutaneous insulin pen RxNorm: 3768096 25 Unit(s) SQ QAM 02/12/2017 06/10/2017 Inactive Toujeo SoloStar 300 unit/mL (1.5 mL) subcutaneous insulin pen RxNorm: 6513011 10 Unit(s) SQ QAM 02/05/2017 02/11/2017 Inactive lisinopril 10 mg tablet RxNorm: 699113 1 Tablet(s) PO daily 02/28/2017 Inactive atorvastatin 40 mg tablet RxNorm: 713124 1 Tablet(s) PO daily 02/01/2017 02/28/2017 Inactive doxycycline hyclate 100 mg capsule RxNorm: 7194159 1 Capsule(s) PO BID 02/01/2017 02/10/2017 Inactive clonazepam 1 mg tablet RxNorm: 729660 1 Tablet(s) PO Q8 as needed 10/09/2016 01/05/2017 Inactive ceftriaxone 1 gram solution for injection RxNorm: 9574113 Inj 10/06/2016 10/06/2016 Inactive cyclobenzaprine 10 mg tablet RxNorm: 600039 1/2-1 Tablet(s) PO TID PRN 07/18/2016 01/28/2017 Inactive clonazepam 1 mg tablet RxNorm: 973886 1 Tablet(s) PO Q8 as needed 05/31/2016 05/29/2016 Inactive clonazepam 1 mg tablet RxNorm: 356886 1 Tablet(s) PO Q8 as needed 05/31/2016 08/28/2016 Inactive Toujeo SoloStar 300 unit/mL (1.5 mL) subcutaneous insulin pen RxNorm: 6625120 10 Unit(s) SQ daily 05/23/2016 01/28/2017 Inactive Crestor 10 mg tablet RxNorm: 349026 1 Tablet(s) PO QHS 201501/28/2017 Inactive Crestor 10 mg tablet RxNorm: 208080 1 Tablet(s) PO QHS 201505/18/2016 Inactive clonazepam 1 mg tablet RxNorm: 743635 1 Tablet(s) PO Q8 as needed 04/25/2016 05/30/2016 Inactive prednisone 20 mg tablet RxNorm: 182502 3 Tablet(s) PO daily 06/201602/10/2016 Inactive prednisone 20 mg tablet RxNorm: 403997 3 Tablet(s) PO daily 06/201605/14/2016 Inactive Kenalog 40 mg/mL suspension for injection RxNorm: 4090741 Milliliter(s) Inj 01/20/2016 01/20/2016 Inactive aspirin 81 mg tablet,delayed release RxNorm: 146882 1 Tablet(s) PO daily No Start Date Active Brilinta 90 mg tablet RxNorm: 5165242 1 Tablet(s) PO BID No Start Date Active acetaminophen 500 mg tablet RxNorm: 246172 1-2 Tablet(s) PO as needed No Start Date Active clopidogrel 75 mg tablet RxNorm: 037384 1 Tablet(s) PO daily No Start Date 02/28/2017 Inactive Novolog Flexpen U-100 Insulin aspart 100 unit/mL subcutaneous RxNorm: 7969774 5 units with breakfast lunch and 10 supper Unit(s) SQ No Start Date 06/17/2018 Inactive clonazepam 1 mg tablet RxNorm: 336584 1 Tablet(s) PO QHS No Start Date 04/24/2016 Inactive Coreg 6.25 mg tablet RxNorm: 506027 1 Tablet(s) PO BID No Start Date 09/29/2018 Inactive acyclovir 400 mg tablet RxNorm: 223226 2 Tablet(s) PO 5x daily No Start Date 02/28/2017 Inactive Lyrica 50 mg capsule RxNorm: 832296 Capsule(s) PO BID No Start Date 06/09/2018 Inactive Vraylar 3 mg capsule RxNorm: 8867235 1 Capsule(s) PO daily No Start Date 03/12/2018 Inactive valsartan 80 mg tablet RxNorm: 199482 1 Tablet(s) PO daily No Start Date 10/22/2018 Inactive Medication Administered Medication Codes Instructions Start Date Status ketorolac 60 mg/2 mL intramuscular solution RxNorm: 2452740 Milliliter 10/21/2018 No longer Active Kenalog 40 mg/mL suspension for injection RxNorm: 0361388 1.5Milliliter 09/30/2018 No longer Active Kenalog 40 mg/mL suspension for injection RxNorm: 9973017 Milliliter 09/11/2018 No longer Active Kenalog 40 mg/mL suspension for injection RxNorm: 9855548 Milliliter 06/28/2018 No longer Active ketorolac 30 mg/mL injection solution RxNorm: 081420 2Milliliter 05/02/2018 No longer Active ceftriaxone 500 mg solution for injection RxNorm: 9220163 1Milliliter 02/16/2017 No longer Active Kenalog 40 mg/mL suspension for injection RxNorm: 4640723 1Milliliter 02/16/2017 No longer Active ceftriaxone 1 gram solution for injection RxNorm: 3605552 10/06/2016 No longer Active Kenalog 40 mg/mL suspension for injection RxNorm: 9953534 Milliliter 01/20/2016 No longer Active Immunizations Vaccine Codes Date Status Influenza CVX: 141 07/22/2018 completed Influenza CVX: 141 08/16/2017 completed Assessments Condition Codes Effective Dates Essential (primary) hypertension ICD-10: I10 ICD-9: 401.1 [...] Visit Reason For Visit Effective Dates Notes hand pain 10/23/2018 hand pain 10/21/2018 lower [...] Item Item Code Result Date Culture Sputum 541268 LOWER RESPIRATORY TRACT CULTURE SEE NOTES 10/16/2018 LIPID GRP [id number] CHOLESTEROL TNP:Duplicate Order 09/10/2018 LIPID GRP Triglyceride TNP:Duplicate Order 2017 LIPID GRP 7252073 HDL CHOLESTEROL TNP:Duplicate Order 2017 LIPID GRP 6746405 Chol/HDL Ratio TNP:Duplicate Order 2017 LIPID GRP 5761253 LDL Cholesterol TNP:Duplicate Order 2017 A1C HPLC 5525288 Hgb A1c 84425-3 TNP:Duplicate Order 2017 C Diff An [id number] GDH TNP:Lab Request 06/22/2018 C Diff An [id number] Toxin A/B TNP:Lab Request 06/22/2018 C Diff An [id number] C Diff Analyzer TNP:Lab Request 2017 C Diff An [id number] IC OK? TNP:Lab Request 06/22/2018 CBC 7147984 WBC 6.4 10e9/L 05/02/2018 CBC 7381634 RBC 5.60 10e12/L 05/02/2018 CBC 5178898 HEMOGLOBIN 17.0 g/dL 05/02/2018 CBC 5392624 HEMATOCRIT 48.0 % 05/02/2018 CBC 5369172 MCV 85.7 fL 05/02/2018 CBC 4548326 MCH 30.4 pg 05/02/2018 CBC 7388764 MCHC 35.4 g/dL 05/02/2018 CBC 9984792 PLATELET COUNT 166 10e9/L 05/02/2018 CBC 7710158 Mean Plt Volume 11.6 fL 05/02/2018 CBC 3452972 Neut Auto 48.6 % 05/02/2018 CBC 9677349 Lymph Auto 41.7 % 05/02/2018 CBC 2779098 Schley Auto 8.1 % 05/02/2018 CBC 8012864 RDW 13.1 % 05/02/2018 CBC 4053619 Eos Auto 1.1 % 05/02/2018 CBC 7755544 Baso Auto 0.5 % 05/02/2018 CBC 2758533 Neutrophil Abs 3.11 10e9/L 05/02/2018 CBC 2901180 Lymphocyte Abs 2.67 10e9/L 05/02/2018 CBC 6725927 Monocyte Abs 0.52 10e9/L 05/02/2018 CBC 3024142 Eosinophil Abs 0.07 10e9/L 05/02/2018 CBC 4336710 RDW-SD 40.0 fL 05/02/2018 CBC 0800084 Basophil Abs 0.03 10e9/L 05/02/2018 CHEM 14 4845861 AST 17 U/L 05/02/2018 CHEM 14 5760020 ALT 17 U/L 05/02/2018 CHEM 14 7598594 BUN 17 mg/dL 05/02/2018 CHEM 14 5844708 ALBUMIN 4.0 g/dL 05/02/2018 CHEM 14 4120672 CHLORIDE 97 mmol/L 05/02/2018 CHEM 14 1516636 Bili Total 0.9 mg/dL 05/02/2018 CHEM 14 9276937 ALK PHOS 67 U/L 05/02/2018 CHEM 14 6342749 SODIUM 135 mmol/L 05/02/2018 CHEM 14 1712900 CREATININE 1.18 mg/dL 05/02/2018 CHEM 14 1143488 CALCIUM 9.4 mg/dL 05/02/2018 CHEM 14 5730733 POTASSIUM 4.4 mmol/L 05/02/2018 CHEM 14 1776669 TOTAL PROTEIN 6.9 g/dL 05/02/2018 CHEM 14 8029839 GLUCOSE 316 mg/dL 05/02/2018 CHEM 14 6236104 Bicarbonate 29 mmol/L 05/02/2018 CHEM 14 7353818 AGAP 9 mmol/L 05/02/2018 MEAN GLUC 2476433 Calc Mean Gluc 283 mg/dL 05/02/2018 A1C HPLC 8268054 Hgb A1c 18628-7 11.5 % 05/02/2018 GFR CALC 7281037 GFR Non Afr Amr >60 mL/min 05/02/2018 GFR CALC 7775007 GFR Afr Amr >60 mL/min 05/02/2018 JI Gold 5697374 JIC Gold Complete 02/28/2018 GFR CALC 5955660 GFR Non Afr Amr >60 mL/min 02/28/2018 GFR CALC 5259195 GFR Afr Amr >60 mL/min 02/28/2018 UA W/CII 0821872 UA Urine Appear Normal 02/28/2018 UA W/CII 5879476 UA Protein 1+ 02/28/2018 UA W/CII 5320578 UA Hemoglobin Negative 02/28/2018 UA W/CII 0348813 UA Glucose 4+ 02/28/2018 UA W/CII 0729743 UA Ketones Trace 02/28/2018 UA W/CII 6150560 UA pH 5.5 02/28/2018 UA W/CII 2308258 U Spec Odell 1.015 02/28/2018 UA W/CII 1355729 UA Bilirubin Negative 02/28/2018 UA W/CII 3225274 UA Nitrite NEG 02/28/2018 UA W/CII 6946982 UA Leuk Esteras Negative 02/28/2018 MICR 9796393 UA WBC/hpf 1 02/28/2018 MICR 8555583 UA RBC hpf 2 02/28/2018 MICR 5579715 UA WBC auto 3.8 /uL 02/28/2018 MICR 5126496 UA RBC auto 12.2 /uL 02/28/2018 MICR 8570293 UA SQ EPI auto 2.3 /uL 02/28/2018 MICR 5717621 UA H Cast auto 0.10 /uL 02/28/2018 CBC 3740454 WBC 6.4 10e9/L 02/28/2018 CBC 6317281 RBC 5.51 10e12/L 02/28/2018 CBC 6292113 HEMOGLOBIN 16.7 g/dL 02/28/2018 CBC 6076529 HEMATOCRIT 46.9 % 02/28/2018 CBC 3211168 MCV 85.1 fL 02/28/2018 CBC 4071752 MCH 30.3 pg 02/28/2018 CBC 6474222 MCHC 35.6 g/dL 02/28/2018 CBC 2764565 PLATELET COUNT 173 10e9/L 02/28/2018 CBC 6001171 Mean Plt Volume 11.6 fL 02/28/2018 CBC 3068539 Neut Auto 51.8 % 02/28/2018 CBC 7524316 Lymph Auto 39.9 % 02/28/2018 CBC 9143932 Schley Auto 7.3 % 02/28/2018 CBC 1765745 Eos Auto 0.8 % 02/28/2018 CBC 8093278 RDW 13.3 % 02/28/2018 CBC 5295143 Baso Auto 0.2 % 02/28/2018 CBC 6698672 Neutrophil Abs 3.32 10e9/L 02/28/2018 CBC 9951881 Lymphocyte Abs 2.55 10e9/L 02/28/2018 CBC 7314881 Monocyte Abs 0.47 10e9/L 02/28/2018 CBC 0456810 Eosinophil Abs 0.05 10e9/L 02/28/2018 CBC 2026658 Basophil Abs 0.01 10e9/L 02/28/2018 CBC 7027609 RDW-SD 40.8 fL 02/28/2018 CHEM 14 4576535 AST 17 U/L 02/28/2018 CHEM 14 5261325 ALT 17 U/L 02/28/2018 CHEM 14 1289161 BUN 20 mg/dL 02/28/2018 CHEM 14 3186041 ALBUMIN 4.1 g/dL 02/28/2018 CHEM 14 2351823 CHLORIDE 97 mmol/L 02/28/2018 CHEM 14 7449560 Bili Total 1.3 mg/dL 02/28/2018 CHEM 14 6219499 ALK PHOS 78 U/L 02/28/2018 CHEM 14 2666789 SODIUM 135 mmol/L 02/28/2018 CHEM 14 3087131 CREATININE 1.09 mg/dL 02/28/2018 CHEM 14 6347948 CALCIUM 9.6 mg/dL 02/28/2018 CHEM 14 2884002 POTASSIUM 3.8 mmol/L 02/28/2018 CHEM 14 8291637 TOTAL PROTEIN 7.3 g/dL 02/28/2018 CHEM 14 0615263 GLUCOSE 349 mg/dL 02/28/2018 CHEM 14 1229937 Bicarbonate 29 mmol/L 02/28/2018 CHEM 14 8538010 AGAP 9 mmol/L 02/28/2018 Jamul Spotted Fever Igg/Igm 952662 FEI MT SPOTTED FEVER IGM EIA . 09/05/2017 Jamul Spotted Fever Igg/Igm 490842 RMSF, IGM 0.17 index 09/05/2017 Jamul Spotted Fever Igg/Igm 076837 FEI MT SPOTTED FEVER IGG EIA FLEX . 09/05/2017 Jamul Spotted Fever Igg/Igm 670733 RMSF, IGG SCREEN-FLEX Positive 09/05/2017 Fei Mtn Spot'D Fev Igg 746021 RMSF, IGG -TITER IFA <1:64 11/2016 Ehrlichia Chaffeensis Antibody Igm 467997 EHRLICHIA CHAFFEENSIS IGM < 1:16 09/03/2017 Ehrlichia Chaffeensis Antibody Igg 730506 EHRLICHIA CHAFFEENSIS IGG <1:64 09/03/2017 Lymes Disease Total Antibodies With Western Blot Reflex B. BURGDORFERI, IGG/IGM 0.223 08/30/2017 Lymes Disease Total Antibodies With Western Blot Reflex C-Reactive Protein Qnt Crqnt CRP 0.00 mg/dl 08/27/2017 Sed Rate Ord21 ESR 8 mm/hr 08/27/2017 Comp Metabolic Qpf406 NA 135 mEq/L 08/16/2017 Comp Metabolic Tok265 K 4.1 mEq/L 08/16/2017 Comp Metabolic Rsf481 CL 98 mEq/L 08/16/2017 Comp Metabolic Jpq727 CO2 28.0 mEq/L 08/16/2017 Comp Metabolic Wgg288 ANION GAP 13 08/16/2017 Comp Metabolic Rgn460 GLUCOSE 299 mg/dL 08/16/2017 Comp Metabolic Yyt016 Creat 0.9 mg/dL 08/16/2017 Comp Metabolic Nkk894 eGFR 90 ml/min/1.73m2 08/16/2017 Comp Metabolic Jma465 BUN 20 mg/dL 08/16/2017 Comp Metabolic Fwe147 B/C Ratio 21.5 Ratio 08/16/2017 Comp Metabolic Wor260 CALCIUM 9.2 mg/dL 08/16/2017 Comp Metabolic Nlx738 ALK PHOS 84 U/L 08/16/2017 Comp Metabolic Xan360 AST(SGOT) 19 U/L 08/16/2017 Comp Metabolic Kub620 ALT(SGPT) 24 U/L 08/16/2017 Comp Metabolic Hns221 BILI T 1.1 mg/dL 08/16/2017 Comp Metabolic Tvz437 ALBUMIN 4.2 g/dL 08/16/2017 Comp Metabolic Ocu655 TPRO 7.2 g/dL 08/16/2017 Comp Metabolic Fhj845 GLOB 3.0 g/dL 08/16/2017 Comp Metabolic Dvx647 A/G Ratio 1.4 Ratio 08/16/2017 Comp Metabolic Flp596 Osmo 284 mOsmo 08/16/2017 %Hba1C Vzm260 % HbA1c 25174-6 12.5 % 08/16/2017 %Hba1C Kbj695 Gluc Ave 312 mg/dL 08/16/2017 Urine Culture Ucult Complete NO Growth Day 2 06/23/2017 Urine Culture Ucult Preliminary NO Growth Day 1 06/23/2017 C RAP A SC [id number] Strep A Negative 06/08/2017 %Hba1C Byn866 % HbA1c 48286-9 9.5 % 05/04/2017 %Hba1C Igc104 Gluc Ave 226 mg/dL 05/04/2017 Tsh Ord6 [...] 31.7 pg 05/04/2017 Cbc With Differential Ord2 Schley% 8.5 % 05/04/2017 Cbc With Differential Ord2 [...] 2.48 K/ul 05/04/2017 Cbc With Differential Ord2 Schley ABS# 0.5 K/ul 05/04/2017 Cbc With Differential Ord2 Eos ABS# 0.1 K/ul 05/04/2017 Cbc With Differential Ord2 Baso ABS# 0.0 K/ul 05/04/2017 Comp Metabolic Fcv631 NA 135 mEq/L 05/04/2017 Comp Metabolic Bcr517 K 4.2 mEq/L 05/04/2017 Comp Metabolic Nok961 CL 99 mEq/L 05/04/2017 Comp Metabolic Fyt514 CO2 26.0 mEq/L 05/04/2017 Comp Metabolic Nci960 ANION GAP 14 05/04/2017 Comp Metabolic Eeb675 GLUCOSE 277 mg/dL 05/04/2017 Comp Metabolic Atc401 Creat 0.9 mg/dL 05/04/2017 Comp Metabolic Hiq322 eGFR 96 ml/min/1.73m2 05/04/2017 Comp Metabolic Lix136 BUN 23 mg/dL 05/04/2017 Comp Metabolic Fjy544 B/C Ratio 26.1 Ratio 05/04/2017 Comp Metabolic Ryr980 CALCIUM 8.9 mg/dL 05/04/2017 Comp Metabolic Fmi979 ALK PHOS 81 U/L 05/04/2017 Comp Metabolic Fpa084 AST(SGOT) 21 U/L 05/04/2017 Comp Metabolic Fap590 ALT(SGPT) 27 U/L 05/04/2017 Comp Metabolic Qje457 BILI T 1.2 mg/dL 05/04/2017 Comp Metabolic Skx151 ALBUMIN 4.0 g/dL 05/04/2017 Comp Metabolic Jgy114 TPRO 6.7 g/dL 05/04/2017 Comp Metabolic Cyg780 GLOB 2.7 g/dL 05/04/2017 Comp Metabolic Kcd437 A/G Ratio 1.5 Ratio 05/04/2017 Comp Metabolic Zsr720 Osmo 284 mOsmo 05/04/2017 C A/B FLU 5928063 Influenza A Scr Negative 02/16/2017 C A/B FLU 9639819 Influenza B Scr Positive 02/16/2017 Cbc With [...] 30.3 pg 05/23/2016 Cbc With Differential Ord2 Schley% 8.8 % 05/23/2016 Cbc With Differential Ord2 [...] 2.07 K/ul 05/23/2016 Cbc With Differential Ord2 Schley ABS# 0.5 K/ul 05/23/2016 Cbc With Differential Ord2 Eos ABS# 0.1 K/ul 05/23/2016 Cbc With Differential Ord2 Baso ABS# 0.0 K/ul 05/23/2016 Lipid Ord30 CHOL 397 mg/dL 05/17/2016 Lipid Ord30 HDL 48.0 mg/dl 05/17/2016 Lipid Ord30 TRIG 578 mg/dL 05/17/2016 Lipid Ord30 LDL Unable to calculate Due to elevated triglycerides mg/dL 05/17/2016 Lipid Ord30 C/HDL 8.3 Ratio 05/17/2016 %Hba1C Sck981 % HbA1c 44975-3 12.4 % 05/16/2016 %Hba1C Ber564 Gluc Ave 309 mg/dL 05/16/2016 Cbc With [...] 87.4 fl 05/15/2016 Cbc With Differential Ord2 Schley% 7.8 % 05/15/2016 Cbc With Differential Ord2 [...] 2.04 K/ul 05/15/2016 Cbc With Differential Ord2 Schley ABS# 0.5 K/ul 05/15/2016 Cbc With Differential Ord2 Eos ABS# 0.1 K/ul 05/15/2016 Cbc With Differential Ord2 Baso ABS# 0.0 K/ul 05/15/2016 Tsh Ord6 hTSH II 1.70 uIU/mL 05/15/2016 Comp Metabolic Uhw215 NA 135 mEq/L 05/15/2016 Comp Metabolic Hfg988 K 3.9 mEq/L 05/15/2016 Comp Metabolic Ziy940 CL 96 mEq/L 05/15/2016 Comp Metabolic Jqd139 CO2 27.0 mEq/L 05/15/2016 Comp Metabolic Yqx756 ANION GAP 16 05/15/2016 Comp Metabolic Grr963 GLUCOSE 183 mg/dL 05/15/2016 Comp Metabolic Enh684 Creat 1.1 mg/dL 05/15/2016 Comp Metabolic God264 eGFR 71 ml/min/1.73m2 05/15/2016 Comp Metabolic Kpt387 BUN 17 mg/dL 05/15/2016 Comp Metabolic Jpf059 B/C Ratio 14.9 Ratio 05/15/2016 Comp Metabolic Nin794 CALCIUM 9.6 mg/dL 05/15/2016 Comp Metabolic Fmg635 ALK PHOS 100 U/L 05/15/2016 Comp Metabolic Yot319 AST(SGOT) 20 U/L 05/15/2016 Comp Metabolic Jga358 ALT(SGPT) 20 U/L 05/15/2016 Comp Metabolic Mht138 BILI T 1.3 mg/dL 05/15/2016 Comp Metabolic Fcm963 ALBUMIN 4.6 g/dL 05/15/2016 Comp Metabolic Cvx051 TPRO 8.1 g/dL 05/15/2016 Comp Metabolic Vyo286 GLOB 3.5 g/dL 05/15/2016 Comp Metabolic Qub726 A/G Ratio 1.3 Ratio 05/15/2016 Comp Metabolic Lkq307 Osmo 276 mOsmo 05/15/2016 Review of Systems System Result Effective Dates Constitutional recent illness 10/23/2018 Constitutional anorexia 10/23/2018 [...] of skin Location: face 05/04/2017 patch left [facility] Full Exam - General 1994 Constitutional general [...] CPT-4: J3301 09/30/2018 THER/PROPH/DIAG INJ SC/IM CPT-4: 80371 09/11/2018 TRIAMCINOLONE ACET INJ NOS CPT-4: J3301 09/11/2018 IMMUNIZATION ADMIN CPT -4: 27375 07/22/2018 FLU VAC NO PRSV 4 MENA 3 YRS+ CPT-4: 20513 07/22/2018 TRIAMCINOLONE ACET INJ NOS CPT-4: J3301 06/28/2018 KETOROLAC TROMETHAMINE INJ CPT-4: J1885 05/02/2018 FLU VAC NO PRSV 4 MENA 3 YRS+ CPT-4: 76943 08/16/2017 IMMUNIZATION ADMIN CPT -4: 45131 08/16/2017 URINALYSIS NONAUTO W/O SCOPE CPT-4: 02099 06/21/2017 TRIAMCINOLONE ACET INJ NOS CPT-4: J3301 05/04/2017 THER/PROPH/DIAG INJ SC/IM CPT-4: 13998 05/04/2017 TRIAMCINOLONE ACET INJ NOS CPT-4: J3301 02/16/2017 ROCEPHIN, PER 250 MG CPT-4: J0696 02/16/2017 ROCEPHIN, PER 250 MG CPT-4: J0696 10/06/2016 URINALYSIS NONAUTO W/O SCOPE CPT-4: 04803 07/18/2016 TRIAMCINOLONE ACET INJ NOS CPT-4: J3301 01/20/2016 Vital Signs Date Vital 10/23/2018 Blood Pressure 1: 100/70 Code : 8480-6 Blood Pressure 2: 102/70 Code: 8480-6 BMI: 33.3 Code: 84854-0 Heart Rate 1: 106 bpm Height: 6'2" SpO2: 98% Weight: 259 lbs 10/21/2018 Blood Pressure 1: 140/90 Code : 8480-6 BMI: 32.9 Code : 90170-3 Heart Rate 1 : 96 bpm Height: 6'2" SpO2: 92% Weight: 256 lbs 10/17/2018 Blood Pressure 1: 110/68 Code : 8480-6 BMI: 32.9 Code : 60003-9 Heart Rate 1 : 82 bpm Height: 6'2" SpO2: 97% Weight: 256 lbs 10/14/2018 Blood Pressure 1: 124/70 Code : 8480-6 BMI: 33.6 Code : 80228-3 Heart Rate 1 : 76 bpm Height: 6'2" SpO2: 99% Temperature: 36.3 (C) / 97.3 (F) Weight: 262 lbs 09/30/2018 Blood Pressure 1: 138/82 Code : 8480-6 BMI: 33.6 Code : 04585-9 Heart Rate 1 : 82 bpm Height: 6'2" SpO2: 98% Temperature: 36.3 (C) / 97.3 (F) Weight: 262 lbs 09/09/2018 Blood Pressure 1: 140/80 Code : 8480-6 BMI: 33.0 Code : 68452-7 Heart Rate 1 : 97 bpm Height: 6'2" SpO2: 93% Temperature: 36.8 (C) / 98.2 (F) Weight: 257 lbs 07/22/2018 Blood Pressure 1: 120/78 Code : 8480-6 BMI: 31.6 Code : 03789-7 Heart Rate 1 : 87 bpm Height: 6'2" SpO2: 98% Weight: 246 lbs 07/16/2018 Blood Pressure 1: 132/74 Code : 8480-6 BMI: 31.2 Code : 33184-7 Heart Rate 1 : 90 bpm Height: 6'2" SpO2: 96% Weight: 243 lbs 07/01/2018 Blood Pressure 1: 142/82 Code : 8480-6 BMI: 31.8 Code : 93566-7 Heart Rate 1 : 88 bpm Height: 6'2" SpO2: 98% Weight: 248 lbs 06/28/2018 Blood Pressure 1: 132/76 Code : 8480-6 BMI: 31.8 Code : 27899-5 Heart Rate 1 : 107 bpm Height: 6'2" SpO2: 98% Temperature: 37.9 (C) / 100.3 (F) Weight: 248 lbs 06/18/2018 Blood Pressure 1: 138/82 Code : 8480-6 BMI: 31.8 Code : 13894-8 Heart Rate 1 : 82 bpm Height: 6'2" SpO2: 97% Weight: 248 lbs 06/04/2018 Blood Pressure 1: 128/84 Code : 8480-6 BMI: 33.9 Code : 82292-6 Heart Rate 1 : 86 bpm Height: 6'2" SpO2: 95% Weight: 264 lbs 05/13/2018 Blood Pressure 1: 130/80 Code : 8480-6 BMI: 31.1 Code : 33779-8 Heart Rate 1 : 100 bpm Height: 6'2" SpO2: 94% Weight: 242 lbs 05/02/2018 Blood Pressure 1: 134/84 Code : 8480-6 BMI: 31.2 Code : 36144-0 Heart Rate 1 : 93 bpm Height: 6'2" SpO2: 98% Weight: 243 lbs 04/29/2018 Blood Pressure 1: 142/88 Code : 8480-6 BMI: 31.6 Code : 13022-1 Heart Rate 1 : 96 bpm Height: 6'2" SpO2: 96% Temperature: 36.7 (C) / 98.1 (F) Weight: 246 lbs 03/13/2018 Blood Pressure 1: 120/76 Code : 8480-6 BMI: 30.9 Code : 87589-9 Heart Rate 1 : 112 bpm Height: 6'2" SpO2: 97% Weight: 241 lbs 03/07/2018 Blood Pressure 1: 108/78 Code : 8480-6 BMI: 30.0 Code : 32251-6 Heart Rate 1 : 87 bpm Height: 6'2" SpO2: 98% Weight: 234 lbs 02/28/2018 Blood Pressure 1: 106/74 Code : 8480-6 BMI: 30.0 Code : 47188-6 Heart Rate 1 : 101 bpm Height: 6'2" SpO2: 98% Temperature: 36.4 (C) / 97.5 (F) Weight: 234 lbs 02/13/2018 Blood Pressure 1: 110/78 Code : 8480-6 BMI: 30.0 Code : 20246-7 Heart Rate 1 : 106 bpm Height: 6'2" SpO2: 98% Weight: 234 lbs 01/29/2018 Blood Pressure 1: 106/68 Code : 8480-6 BMI: 30.0 Code : 74813-7 Heart Rate 1 : 108 bpm Height: 6'2" SpO2: 98% Weight: 234 lbs 08/27/2017 Blood Pressure 1: 134/76 Code : 8480-6 Heart Rate 1: 98 bpm Height: SpO2: 97% Weight: 08/16/2017 Blood Pressure 1: 128/80 Code : 8480-6 BMI: 32.0 Code : 46600-1 Heart Rate 1 : 94 bpm Height: [...] Code : 8480-6 BMI: 31.8 Code : 37439-3 Heart Rate 1 : 102 bpm Height: [...] Code : 8480-6 BMI: 31.8 Code : 46923-0 Heart Rate 1 : 85 bpm Height: 6'2" SpO2: 96% Temperature: 36.6 (C) / 97.9 (F) Weight: 248 lbs 02/12/2017 Blood Pressure 1: 126/76 Code : 8480-6 BMI: 31.8 Code : 90606-8 Heart Rate 1 : 106 bpm Height: 6'2" SpO2: 91% Weight: 248 lbs 02/05/2017 Blood Pressure 1: 146/86 Code : 8480-6 BMI: 31.9 Code : 47055-0 Heart Rate 1 : 98 bpm Height: 6'2" SpO2: 87% Temperature: 36.7 (C) / 98.0 (F) Weight: 248 lbs 8 oz 01/29/2017 Blood Pressure 1: 132/84 Code : 8480-6 BMI: 31.8 Code : 47896-4 Heart Rate 1 : 83 bpm Height: 6'2" SpO2: 97% Weight: 248 lbs 10/13/2016 Blood Pressure 1: 128/72 Code : 8480-6 Heart Rate 1: 86 bpm SpO2: 94% 10/09/2016 Blood Pressure 1: 128/68 Code : 8480-6 Heart Rate 1: 136 bpm SpO2: 94% Temperature: 36.8 (C) / 98.2 (F) 10/06/2016 Blood Pressure 1: 140/80 Code : 8480-6 BMI: 32.1 Code : 69798-8 Heart Rate 1 : 94 bpm Height: 6'2" SpO2: 95% Weight: 250 lbs 07/18/2016 Blood Pressure 1: 128/86 Code : 8480-6 BMI: 32.1 Code : 37113-9 Heart Rate 1 : 89 bpm Height: 6'2" SpO2: 96% Weight: 250 lbs 06/22/2016 Blood Pressure 1: 118/70 Code : 8480-6 BMI: 32.1 Code : 65888-4 Heart Rate 1 : 70 bpm Height: 6'2" SpO2: 97% Weight: 250 lbs 05/23/2016 Blood Pressure 1: 128/80 Code : 8480-6 BMI: 32.1 Code : 29698-9 Heart Rate 1 : 76 bpm Height: 6'2" SpO2: 98% Weight: 250 lbs 05/15/2016 Blood Pressure 1: 110/90 Code : 8480-6 BMI: 31.3 Code : 93572-6 Heart Rate 1 : 111 bpm Height: 6'2" SpO2: 97% Temperature: 36.6 (C) / 97.8 (F) Weight: 244 lbs 01/20/2016 Blood Pressure 1: 128/76 Code : 8480-6 BMI: 33.0 Code : 68514-4 Heart Rate 1 : 103 bpm Height: 6'2" SpO2: 95% Weight: 257 lbs Functional Status No Functional Status data History of Present Illness Symptom Name Status Result Effective Date Notes Location on the right 10/23/2018 2nd [facility] [...] None Location on the right 10/21/2018 2nd [facility] Quality throbbing cramping Onset and Resolution sudden [...] Encounters Encounter Performer Location Codes Date ( 51885 EST. PATIENT, LEVEL IV Diagnosis: Essential (primary) hypertension[ICD10: I10] Diagnosis: Type 2 diabetes mellitus with foot ulcer[ICD10: E11.621] Melida Ha MD, [facility] CPT-4: 46173 10/23/2018 ([id number]) 19425 EST. PATIENT, LEVEL III Diagnosis: Cellulitis of right finger[ICD10: L03.011] Diagnosis: Type 2 diabetes mellitus with foot ulcer[ICD10: E11.621] Diagnosis: Pain in right hand[ICD10: M79.641] Melida Ha MD, [facility] CPT-4: 74843 10/21/2018 43413 EST. PATIENT, LEVEL III Diagnosis: Spontaneous ecchymoses[ICD10: R23.3] Diagnosis: Cellulitis of right lower limb[ICD10: L03.115] Diagnosis: Cellulitis of left lower limb[ICD10: L03.116] Madeline Ha MD, [facility] CPT-4: 46361 10/17/2018 ([id number]) 38512 EST. PATIENT, LEVEL III Diagnosis: Cough[ICD10: R05] Diagnosis: Acute bronchitis, unspecified[ICD10: J20.9] Melida Ha MD, [facility] CPT-4: 06720 10/14/2018 71284 EST. PATIENT, LEVEL III Diagnosis: Acute laryngopharyngitis[ICD10: J06.0] Diagnosis: Cough[ICD10: R05] Madeline Ha MD, [facility] CPT-4: 64491 09/30/2018 ([id number]) 49174 EST. PATIENT, LEVEL III Diagnosis: Acute recurrent maxillary sinusitis[ICD10: J01.01] Diagnosis: Cough[ICD10: R05] Diagnosis: Type 2 diabetes mellitus with hyperglycemia[ICD10: E11.65] Marcela Ha MD, [facility] CPT-4: 18747 09/09/2018 ([id number]) 07672 EST. PATIENT, LEVEL IV Diagnosis: Essential (primary) hypertension[ICD10: I10] Diagnosis: Mixed hyperlipidemia[ICD10: E78.2] Diagnosis: Bipolar disorder, current episode depressed, moderate[ICD10: F31.32] Diagnosis: Type 2 diabetes mellitus with other specified complication[ICD10: E11.69] Melida Ha MD, [facility] CPT-4: 78981 2017 ([id number]) 31764 EST. PATIENT, LEVEL III Diagnosis: Insomnia due to medical condition[ICD10: G47.01] Marcela Ha MD, [facility] CPT-4: 81663 07/16/2018 ([id number]) Miscellaneous no charge Diagnosis: Cough[ICD10: R05] Madeline Ha MD, [facility] CPT-4: 38759 07/01/2018 06415 EST. PATIENT, LEVEL III Diagnosis: Cough[ICD10: R05] Diagnosis: Acute laryngopharyngitis[ICD10: J06.0] Diagnosis: Other allergic rhinitis[ICD10: J30.89] Madeline Ha MD, [facility] CPT-4: 35699 06/28/2018 ([id number]) 64533 EST. PATIENT, LEVEL IV Diagnosis: Type 2 diabetes mellitus with hyperglycemia[ICD10: E11.65] Diagnosis: Essential (primary) hypertension[ICD10: I10] Melida Ha MD, [facility] CPT-4: 02319 06/18/2018 ([id number]) 29635 EST. PATIENT, LEVEL IV Diagnosis: Type 2 diabetes mellitus with hyperglycemia[ICD10: E11.65] Diagnosis: Essential (primary) hypertension[ICD10: I10] Diagnosis: Localized edema[ICD10: R60.0] Melida Ha MD, [facility] CPT- 4: 97759 06/04/2018 ([id number]) 65383 EST. PATIENT, LEVEL III Diagnosis: Type 2 diabetes mellitus with hyperglycemia[ICD10: E11.65] Diagnosis: Myalgia[ICD10: M79.1] Diagnosis: Pain in right hip[ICD10: M25.551] Diagnosis: Pain in left hip[ICD10: M25.552] Marcela Ha MD, [facility] CPT-4: 31319 05/13/2018 ([id number]) 46491 EST. PATIENT, LEVEL III Diagnosis: Myalgia[ICD10: M79.1] Diagnosis: Pain in right hip[ICD10: M25.551] Diagnosis: Pain in left hip[ICD10: M25.552] Marcela Ha MD, [facility] CPT-4: 40723 05/02/2018 ([id number]) 81640 EST. PATIENT, LEVEL IV Diagnosis: Essential (primary) hypertension[ICD10: I10] Diagnosis: Type 2 diabetes mellitus with hyperglycemia[ICD10: E11.65] Diagnosis: Major depressive disorder, single episode, moderate[ICD10: F32.1] Diagnosis: Myalgia[ICD10: M79.1] Marcela Ha MD, [facility] CPT-4: 91767 04/29/2018 ([id number]) 14365 EST. PATIENT, LEVEL IV Diagnosis: Type 2 diabetes mellitus with hyperglycemia[ICD10: E11.65] Diagnosis: Essential (primary) hypertension[ICD10: I10] Diagnosis: Major depressive disorder, single episode, moderate[ICD10: F32.1] Melida Ha MD, [facility] CPT-4: 88708 03/13/2018 [id number]) 16421 EST. PATIENT, LEVEL III Diagnosis: Type 2 diabetes mellitus with hyperglycemia[ICD10: E11.65] Diagnosis: Bipolar disorder, current episode depressed, moderate[ICD10: F31.32] Diagnosis: Orthostatic hypotension[ICD10: I95.1] Marcela Ha MD, [facility] CPT-4: 39418 03/07/2018 ([id number]) 04691 EST. PATIENT, LEVEL IV Diagnosis: Type 2 diabetes mellitus with hyperglycemia[ICD10: E11.65] Diagnosis: Major depressive disorder, single episode, moderate[ICD10: F32.1] Diagnosis: Orthostatic hypotension[ICD10: I95.1] Diagnosis: Other fatigue[ICD10: R53.83] Marcela Ha MD, [facility] CPT-4: 82095 02/28/2018 58577 EST. PATIENT, LEVEL IV Diagnosis: Other fatigue[ICD10: R53.83] Diagnosis: Other malaise[ICD10: R53.81] Diagnosis: Gastro-esophageal reflux disease without esophagitis[ICD10: K21.9] Madeline aH MD, [facility] CPT-4: 27177 02/13/2018 ([id number]) 07301 EST. PATIENT, LEVEL IV Diagnosis: Type 2 diabetes mellitus with foot ulcer[ICD10: E11.621] Diagnosis: Essential (primary) hypertension[ICD10: I10] Diagnosis: Gastro-esophageal reflux disease without esophagitis[ICD10: K21.9] Marcela Ha MD, [facility] CPT-4: 87350 01/29/2018 36483 EST. PATIENT, LEVEL III Diagnosis: Other malaise[ICD10: R53.81] Diagnosis: Other fatigue[ICD10: R53.83] Diagnosis: Pain in right shoulder[ICD10: M25.511] Diagnosis: Pain in left shoulder[ICD10: M25.512] Madeline Ha MD, [facility] CPT-4: 80679 08/27/2017 ([id number]) 57366 EST. PATIENT, LEVEL IV Diagnosis: Essential (primary) hypertension[ICD10: I10] Diagnosis: Type 2 diabetes mellitus with hyperglycemia[ICD10: E11.65] Diagnosis: VACCIN FOR INFLUENZA[ICD10: Z23] Melida Ha MD, [facility] CPT-4: 92860 08/16/2017 63790 EST. PATIENT, LEVEL III Diagnosis: Zoster without complications[ICD10: B02.9] Madeline Ha MD, [facility] CPT-4: 51384 07/26/2017 ([id number]) 63419 EST. PATIENT, LEVEL III Diagnosis: Cellulitis of right lower limb[ICD10: L03.115] Marcela Ha MD, [facility] CPT-4: 16074 07/03/2017 20422 EST. PATIENT, LEVEL II Diagnosis: Laceration without foreign body of left forearm, initial encounter[ ICD10: S51.812A] Marcela Ha MD, [facility] CPT-4: 72321 06/29/2017 ([id number]) 51171 EST. PATIENT, LEVEL III Diagnosis: Cellulitis of right lower limb[ICD10: L03.115] Diagnosis: Type 2 diabetes mellitus with foot ulcer[ICD10: E11.621] Marcela Ha MD [facility] CPT-4: 91675 06/18/2017 ([id number]) 06396 EST. PATIENT, LEVEL IV Diagnosis: Cellulitis of right lower limb[ICD10: L03.115] Diagnosis: Acute laryngopharyngitis[ICD10: J06.0] Diagnosis: Gastro-esophageal reflux disease without esophagitis[ICD10: K21.9] Marcela Ha MD [facility] CPT-4: 69100 06/07/2017 ([id number]) 23151 EST. PATIENT, LEVEL III Diagnosis: Type 2 diabetes mellitus with hyperglycemia[ICD10: E11.65] Diagnosis: Insect bite (nonvenomous) of abdominal wall, initial encounter[ICD10 : S30.861A] Marcela Ha MD [facility] CPT-4: 39927 05/17/2017 ([id number]) 37448 EST. PATIENT, LEVEL III Diagnosis: Allergic contact dermatitis due to plants, except food[ICD10: L23.7] Melida Ha MD [facility] CPT-4: 07510 05/04/2017 ([id number]) 02632 EST. PATIENT, LEVEL III Diagnosis: Essential (primary) hypertension[ICD10: I10] Marcela Ha MD [facility] CPT-4: 52634 03/15/2017 ([id number]) 18110 EST. PATIENT, LEVEL III Diagnosis: Cough[ICD10: R05] Diagnosis: Essential (primary) hypertension[ICD10: I10] Marcela Ha MD [facility] CPT-4: 47506 03/01/2017 ([id number]) 99663 EST. PATIENT, LEVEL III Diagnosis: Cough[ICD10: R05] Diagnosis: Nasal congestion[ICD10: R09.81] Diagnosis: Acute recurrent maxillary sinusitis[ICD10: J01.01] Marcela Ha MD [facility] CPT-4: 88768 02/16/2017 ([id number]) 40050 EST. PATIENT, LEVEL III Diagnosis: Type 2 diabetes mellitus with hyperglycemia[ICD10: E11.65] Marcela Ha MD, [facility] CPT-4: 60091 02/12/2017 ([id number]) 54837 EST. PATIENT, LEVEL IV Diagnosis: Type 2 diabetes mellitus with hyperglycemia[ICD10: E11.65] Diagnosis: Muscle weakness (generalized)[ICD10: M62.81] Diagnosis: Disorientation, unspecified[ICD10: R41.0] Marcela Ha MD, [facility] CPT-4: 03800 02/05/2017 ([id number]) Patient admitted to the hospital from clinic (NO CHARGE) Diagnosis: Type 2 diabetes mellitus with hyperglycemia[ICD10: E11.65] Diagnosis: Disorientation, unspecified[ICD10: R41.0] Diagnosis: Muscle weakness (generalized)[ICD10: M62.81] Marcela Ha MD, [facility] CPT-4: 81109X 01/29/2017 ([id number]) Miscellaneous no charge Diagnosis: Cellulitis of right lower limb[ICD10: L03.115] Marcela Ha MD, [facility] CPT-4: 69907 10/13/2016 ([id number]) Miscellaneous no charge Diagnosis: Type 2 diabetes mellitus with foot ulcer[ICD10: E11.621] Diagnosis: Pain in right foot[ICD10: M79.671] Marcela Ha MD, [facility] CPT-4: 60850 10/09/2016 46090 EST. PATIENT, LEVEL II Diagnosis: Cellulitis of right lower limb[ICD10: L03.115] Marcela Ha MD, [facility] CPT-4: 88875 10/06/2016 ([id number]) 01822 EST. PATIENT, LEVEL IV Diagnosis: Low back pain[ICD10: M54.5] Diagnosis: Other deformities of toe(s) (acquired), left foot[ICD10: M20.5X2] Diagnosis: Type 2 diabetes mellitus with foot ulcer[ICD10: E11.621] Marcela Ha MD , [facility] CPT-4: 85562 07/18/2016 ([id number]) 06596 EST. PATIENT, LEVEL III Diagnosis: Type 2 diabetes mellitus with hyperglycemia[ICD10: E11.65] Marcela Ha MD, [facility] CPT-4: 56371 06/22/2016 ([id number]) 49146 EST. PATIENT, LEVEL IV Diagnosis: Type 2 diabetes mellitus with hyperglycemia[ICD10: E11.65] Diagnosis: Mixed hyperlipidemia[ICD10: E78.2] Diagnosis: Other hemoglobinopathies[ICD10: D58.2] Marcela Ha MD, [facility] CPT-4: 10942 05/23/2016 ([id number]) 37592 EST. PATIENT, LEVEL IV Diagnosis: Type 2 diabetes mellitus with other specified complication[ICD10: E11.69] Diagnosis: Dehydration[ICD10: E86.0] Marcela Ha MD, [facility] CPT-4: 88279 05/15/2016 ([id number]) OFFICE VISIT, NEW - LEVEL 3 Diagnosis: Allergic contact dermatitis due to plants, except food[ICD10: L23.7] Madeline Ha MD, [facility] CPT-4: 10470 01/20/2016 Plan of Care Planned Activity Notes Codes Status Date Visit Plan: Hypotension - discussed with Dr. [...] are starting to become less controlled. 10/23/2018 Patient Education: Patient Medication Summary Completed [...] and plan. 10/21/2018 Appointment: [phone] (30 min) Complex 10/21/2018 Patient Education: Patient [...] warmth, discharge. 10/17/2018 Appointment: Madeline Kennedy WPtel[facility] (15 min) Moderate 10/17/2018 Patient Education: Patient [...] acutely worsen. 10/14/2018 Appointment: Marcela Oshea WPtel: [facility]4 [phone] (15 min) Moderate 10/14/2018 Patient Education: Patient Medication Summary Completed 10/14/2018 Care Plan: CHEST X-RAY 2VW FRONTAL&LATL LOINC : 87500-1 Pending 10/14/2018 Visit Plan: URI - Pt [...] allergy spray. 09/30/2018 Appointment: Madeline Kennedy WPtel: [facility]8 [facility] (15 min) Moderate 09/30/2018 Patient Education: Patient [...] Hgb A1C 09/09/2018 Appointment: Marcela Oshea WPtel: [facility]1 [phone] (15 min) Moderate 09/09/2018 Patient Education: Patient Medication Summary Completed 09/09/2018 Patient Education: Patient Medication Summary Completed 09/06/2018 Patient Education: Cholesterol Management Completed 09/06/2018 Care Plan: Comp Metabolic Pending 09/06/2018 Care Plan: Cbc With Differential Pending 09/06/2018 Care Plan: %Hba1C LOINC : 84027-0 Pending 09/06/2018 Care Plan: Tsh Pending 09/06/2018 Care Plan: Lipid Pending 09/06/2018 Appointment: Marcela Oshea WPtel: [phone] [phone] [place] (15 min) Moderate 08/26/2018 Appointment: Marcela Oshea WPtel: [phone] [phone] [place] (15 min) Moderate 08/23/2018 Visit Plan: [...] clinic. 07/22/2018 [phone] [place] (15 min) Moderate 07/22/2018 Patient Education: [...] insomnia. 07/16/2018 Appointment: Marcela Oshea WPtel: [phone] [phone] [place] (30 min) Complex 07/16/2018 Patient Education: Patient Medication Summary Completed 07/16/2018 Visit Plan: cough - improved - notify clinic if symptoms do not completely resolve, or with any questions or concerns. 07/01/2018 Appointment: [phone] [facility] [place] (15 min) Moderate 07/01/2018 Patient [...] spray. 06/28/2018 Appointment: Madeline Kennedy WPtel: [phone] [facility] (15 min) Moderate 06/28/2018 Patient Education: Patient [...] home. 06/18/2018 Appointment[phone] (15 min) Moderate 06/18/2018 Patient Education: [...] improves. 06/04/2018 Appointment: [phone] [place] (15 min) Moderate 06/04/2018 Patient [...] allow for greater blood glucose control. Joint bqld-woaqziiq-hhkqbke- symptoms have improved -stop meloxicam due to upset stomach-call if symptoms return 05/13/2018 Appointment: Marcela Oshea WPtel: [phone] [phone] [place] (30 min) Complex 05/13/2018 Patient Education: Patient Medication Summary Completed 05/13/2018 Visit Plan: Bilateral hip zpaw-xzprktic-tcbyuhz IM injection administered today for c/o continued myalgia/arthralgia. Patient to start taking Meloxicam 15mg PO daily. Advised to return to clinic if symptoms do not improve. 05/02/2018 Appointment: Marcela Oshea WPtel: [facility]5 [phone] [place] (30 min) Complex 05/02/2018 Patient Education: [...] readings at home. Diabetes Mellitus -check labs Wtaokghp-mskrras-uumq bite-rx for doxycycline-follow up in 2 weeks 04/29/2018 Appointment: Marcela Oshea WPtel: [phone] [phone] [place] (15 min) Moderate 04/29/2018 Patient Education: Patient Medication Summary Completed 04/29/2018 Appointment: Melida Ha WPtel: [phone] [facility] [place] (15 min) Moderate 04/15/2018 Appointment: Marcela Oshea WPtel: [phone] (30 min) Complex 03/21/2018 Visit Plan: Hypertension [...] on cymbalta 03/13/2018 Appointment: Melida Ha WPtel: [facility] (30 min) Complex 03/13/2018 Patient Education: Patient Medication Summary Completed 03/13/2018 Visit Plan: DM-continue same medications-monitor blood sugars routinely as directed -rx for new glucometer and test strips provided Bipolar-currently depressed-patient start on vraylar-follow up in 2 weeks, sooner if needed. Patient and verbalied understanding of plan. Hypotension- stay off losartan 03/07/2018 Appointment: Marcela Oshea WPtel: [phone] (30 min) Complex 03/07/2018 Patient Education: Patient Medication Summary Completed 03/07/2018 Appointment: Melida Ha WPtel: [facility] (15 min) Moderate 03/04/2018 Visit Plan: [...] patient. 02/28/2018 Appointment: Marcela Oshea WPtel: [phone] [phone] (30 min) Complex 02/28/2018 Patient Education: Patient [...] 02/13/2018 Appointment: [facility]el[facility] [phone] [facility] (15 min) Moderate 02/13/2018 Patient Education: Patient Medication Summary Completed 02/13/2018 Referral: Sun Glynn Patient informed. Referral info faxed. Completed Visit Plan: DM-weight loss-not checking blood sugars- patient sent for labs today HTN-low shcxv-qffyftp-orfjm labs Callus of foot and fissue of heel-refer to Dr Glynn for evaluation Esophageal Reflux - the patient has been counseled against excessive intake of caffeine, spicy foods, peppermint , and cinnamon - all of which can exacerbate esophageal reflux. The patient is to take medications as prescribed and call the office if the symptoms are not improving. 01/29/2018 Appointment: [facility]el[facility] [phone] [phone] (30 min) Complex 01/29/2018 Patient Education: Patient Medication Summary Completed 01/29/2018 Care Plan: Comp Metabolic Cancelled 01/29/2018 Care Plan: Cbc With Differential Cancelled 01/29/2018 Care Plan: %Hba1C LOINC : 12517-9 Cancelled 01/29/2018 Care Plan: Referral Order SNOMED-CT : [id number] Cancelled 01/29/2018 Visit Plan: Fatigue, malaise, joint [...] concerns. 08/27/2017 Appointment: [facility]el[facility] [phone] [facility] (15 min) Moderate 08/27/2017 Patient Education: [...] - 08/16/2017 Appointment: [phone] ([facility] min) Complex 08/16/2017 Patient Education: Patient Medication Summary Completed 08/16/2017 Patient Education: Obesity Completed 08/16/2017 Appointment: Madeline Kennedy WPtel: [facility]5 [facility] (30 min) Complex 08/07/2017 Visit Plan: Shingles [...] considered contagious. 07/26/2017 Appointment: Madeline Kennedy WPtel: [facility]5 [facility] (15 min) Moderate 07/26/2017 Patient Education: Patient Medication Summary Completed 07/26/2017 Visit Plan: Cellulitis right foot-cultured today in the office-home health to reapply wound vac--appt with wound care on to evaluate for debridement- 07/03/2017 Appointment: Marcela Oshea WPtel: [facility]5 [phone] (30 min) Complex 07/03/2017 Patient Education: Patient Medication Summary Completed 07/03/2017 Visit Plan: Abrasion left arm - Pt was instructed to keep the wound clean, wash with antibacterial soap, use triple antibiotic ointment, call if redness, pustular drainage, or any other acute concerns. 06/29/2017 Appointment: Marcela Oshea WPtel: [facility]5 [phone] (15 min) Moderate 06/29/2017 Patient Education: Patient [...] of plan. 06/18/2017 Appointment: Marcela Oshea WPtel: [facility]5 [phone] (15 min) Moderate 06/18/2017 Patient Education: Patient [...] diet-start prilosec 06/07/2017 Appointment: Marcela Oshea WPtel: [facility]5 [phone] (10 min) Simple 06/07/2017 Patient Education: Patient [...] bite-continue doxycycline 05/17/2017 Appointment: Marcela Oshea WPtel: [facility]9 [phone] (30 min) Complex 05/17/2017 Patient Education: Patient [...] if you want anai edge called into [facility]. 05/04/2017 Appointment: Marcela Oshea WPtel: [address] [place], [place] [phone] (30 min) Complex 05/04/2017 Patient Education: Patient [...] home. Cough-resolved 03/15/2017 Appointment: Marcela Oshea WPtel: [address] [place], [place] [phone] (15 min) Moderate 03/15/2017 Patient Education: Patient Medication Summary Completed 03/15/2017 Appointment: Marcela Oshea WPtel: [address] [place], [place] [phone] (30 min) Complex 03/12/2017 Visit Plan: Feng [...] as discussed 02/16/2017 Appointment: Marcela Oshea WPtel: [facility]9 [phone] (15 min) Moderate 02/16/2017 Patient Education: Patient [...] less controlled. 02/12/2017 Appointment: Marcela Oshea WPtel: [phone] [phone] (30 min) Complex 02/12/2017 Patient Education: Patient Medication Summary Completed 02/12/2017 Appointment: Marcela Oshea WPtel: [facility]9 [phone] (30 min) Complex 02/06/2017 Visit Plan: Diabetes [...] will consider 02/05/2017 Appointment: Marcela Oshea WPtel: [facility]8 [phone] (30 min) Complex 02/05/2017 Patient Education: Patient Medication Summary Completed 02/05/2017 Appointment: Marcela Oshea WPtel: [phone] [phone] (30 min) Complex 01/30/2017 Visit Plan: Acute confusion-uncontrolled diabetes- chronically noncompliant with treatment and stopped his insulin several months ago-r/o stroke vs DKA-Dr Ha in to evaluate patient-plan to admit for further work up and treatment-patient's called and she transported him to the hospital 01/29/2017 Appointment: Marcela Oshea WPtel: [phone] [phone] [place] (30 min) Complex 01/29/2017 Patient Education: Patient Medication Summary Completed 01/29/2017 Patient Education: Obesity Completed 01/29/2017 Visit Plan: Right foot pain-MRI shows foreign body-appt with Dr Grewal for evaluation on Sunday. 10/13/2016 Appointment: Marcela Oshea WPtel: [facility]5 [phone] [place] (15 min) Moderate 10/13/2016 Patient Education: Patient Medication Summary Completed 10/13/2016 Appointment: Marcela Oshea WPtel: [phone] [phone] [place] (30 min) Complex 10/12/2016 Visit Plan: Right foot rsug-rroxqkzd-ehxmh washer dropped on foot-xray negative but pain continues to increase-recommend MRI of foot for further evaluation-refer to wound care for lesions on right foot, patient has diabetes and history of osteomyelitis-culture obtained today-continue oral abx- follow up in the office on , sooner if needed 10/09/2016 Visit Plan: Right foot bodo-nujcoinw-wqvvv washer dropped on foot-xray negative but pain continues to increase-recommend MRI of foot for further evaluation-refer to wound care for lesions on right foot, patient has diabetes and history of osteomyelitis-culture obtained today-continue oral abx- follow up in the office on , sooner if needed 10/09/2016 Visit Plan: Right foot kosz-cnnkjnxt-chxme washer dropped on foot-xray negative but pain continues to increase-recommend MRI of foot for further evaluation-refer to wound care for lesions on right foot, patient has diabetes and history of osteomyelitis-culture obtained today-continue oral abx- follow up in the office on , sooner if needed 10/09/2016 Appointment: Marcela Oshea WPtel: [phone] [phone] [place] (30 min) Complex 10/09/2016 Patient Education: Patient Medication Summary Completed 10/09/2016 Visit Plan: Cellulitis - continue with oral antibiotics as previously directed, return to clinic as previously directed, call for acute change in symptoms, worsening redness, warmth, discharge. 10/06/2016 Appointment: Marcela Oshea WPtel: [phone] (10 min) Simple 10/06/2016 Patient Education: Patient Medication Summary Completed 10/06/2016 Appointment: Marcela Oshea WPtel: [facility]1 [place] [phone] (30 min) Complex 08/24/2016 Referral: Sun Glynn Referral Completed 07/21/2016 Visit Plan: Low back pain- history of spinal fusion- patient for xray lumbar spine-RX sent to [facility] pharmacy and instructed on use-topical voltaren samples provided and instructed on use. Ok to use tylenol as needed as well. The patient is to call the office if the pain is worsening or does not improve. Pressure ulcer left 4th toe-refer to Dr Glynn for evaluation 07/18/2016 Appointment: Marcela Oshea WPtel: [phone] [place] (30 min) Complex 07/18/2016 Patient Education: Patient Medication Summary Completed 07/18/2016 Patient Education: Obesity Completed 07/18/2016 Care Plan: Referral Order SNOMED-CT : [id number] Cancelled 07/18/2016 Visit Plan: Diabetes Mellitus - [...] glucose control. 06/22/2016 Appointment: Marcela Oshea WPtel: [facility]8 [phone] (30 min) Complex 06/22/2016 Patient Education: Patient [...] CBC today 05/23/2016 Appointment: Marcela Oshea WPtel: [address] [place], [place] [phone] (30 min) [facility] 05/23/2016 Patient Education: Patient Medication Summary Completed [...] plan. 05/15/2016 [facility]: [phone] ([facility] min) Moderate 05/15/2016 Patient Education: [...] Glynn Referral Appointment Requested Instructions Comment . Mild ecchymosis with faint erythema - pt is to continue his levaquin that was previously prescribed - The patient was instructed in appropriate wound care. The patient was instructed to use the antibiotic as per RX. The patient is to call for any change in symptoms, increase in size of the lesion, increase in pain, worsening redness, warmth, discharge. continue oral antibiotic start using topical antibiotic ointment to scabbed areas and cover with dressing follow up , sooner if needed refer to wound care mri left foot due to increased pain -concern for fracture from injury . Right foot myzm-mprmsytg-qpfwc washer dropped on foot-xray negative but pain [...] for fracture from injury . Right foot phns-ocubwerv-ldpcg washer dropped on foot-xray negative but pain [...] for fracture from injury . Right foot wxfl-fkfvkhgr-ntagc washer dropped on foot-xray negative but pain [...] if you want anai edge called into [facility]. breathing treatments 3 times a day x [...] in the nasal steroid allergy spray. . Poison Jana - pt is to use topical treatments as directed. Pt is cleanse clothing in hot water with soap, and call if symptoms do not improve or if they worsen. . Right foot pain-MRI shows foreign body-appt with Dr Grewal for evaluation on Sunday. decrease the valsartan to 1/2 pill daily [...] Flu shot given today in clinic. . Bilateral hip tnbz-idwsmowh-sexafll IM injection administered today for c/o continued myalgia/arthralgia. Patient to start taking Meloxicam 15mg PO daily. Advised to return to clinic if symptoms do not improve. . cough - improved - notify clinic [...] voltaren gel ulcer left 4th toe-refer to can maker . Low back pain- history of spinal fusion-patient for xray lumbar spine-RX sent to [facility] pharmacy and instructed on use-topical voltaren samples provided and instructed on use. Ok to use tylenol as needed as well. The patient is to call the office if the pain is worsening or does not improve. Pressure ulcer left 4th toe-refer to Dr Glynn for evaluation . DM-weight loss-not checking blood sugars-patient sent for labs today HTN-low xlnfi-mqnolel-dfwco labs Callus of foot and fissue of [...] physical exam, and the assessment and plan. REPEAT LABS BEFORE YOUR NEXT APPOINTMENT IN [...] greater blood glucose control. Tick bite-continue doxycycline START CHECKING BLOOD SUGARS . Diabetes Mellitus [...] readings are starting to become less controlled. Ozedzikaj-ntcmdlid-pljazmvm to monitor Generalized weakness-refer for PT-patient refuses today but will consider . Diabetes Mellitus - I have recommended [...] allow for greater blood glucose control. . Hypertension - well controlled - continue with current medications, continue with no added salt diet. Pt has been encouraged to exercise daily. The pt has been advised to call the office if there are any acute concerns about change in blood pressure readings at home. Cough-resolved TOUJEO 25 UNITS DAILY. NOTIFY CLINIC IF [...] readings are starting to become less controlled. STAY OFF LOSARTAN AND CHOLESTEROL MEDICATION FOR NOW . DM- continue same medications-monitor blood sugars routinely as directed -rx for new glucometer and test strips provided Bipolar-currently depressed-patient start on vraylar-follow up in 2 weeks, sooner if needed. Patient and verbalied understanding of plan. Hypotension-stay off losartan . Sinusitis - Pt has acute infection - pain in face, maxillary region, Pt informed to use decongestant, RX given to patient, sinus rinses also recommended. Call if symptoms do not show improvement. DM-check Hgb A1C STOP MELOXICAM CONTINUE LYRICA 50 UNITS TOUJEO [...] allow for greater blood glucose control. Joint vfxd-linlwrfe-fktjblk-symptoms have improved -stop meloxicam due to upset [...] change in blood pressure readings at home. STOP LISINOPRIL DUE TO COUGH -START LOSARTAN [...] readings at home. Diabetes Mellitus -check labs Tsfxwkei-esyxpvr-aowu bite-rx for doxycycline-follow up in 2 weeks [...] been appropriately prescribed for this patient. . Diabetes Mellitus - controlled - per [...]
--- OUTSIDE RECORDS SUMMARY | 2019-01-01 15:16 | XMS REPORT | CCD ---
Author Author Madelien Kennedy MD, [facility] Address [address] [place] [address] Phone Care Team Providers Care Paraprofessional Education Assistant Name Role Phone PP Unavailable CCM Unavailable Summary Purpose Interface Exchange Insurance Providers Payer name Policy type / Coverage type Covered democrat ID Effective Begin Date Effective End Date Blue Cross Blue Shield [facility] Blue Cross/Blue Shield [id number] 2016 Unknown Family history Father Diagnosis Age At Onset Hyperlipidemia Unknown Heart Attack Unknown Mother Diagnosis Age At Onset Hypertension Unknown Social History Social History Element Codes Description Effective Dates Marital status Unknown Mignon 01/20/2016 Number of children Unknown 4 01/20/2016 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/[address]: 711072083 Never smoker 01/20/[address]: 456493285 Never drinks alcohol 01/20/2016 Allergies, Adverse Reactions, Alerts Substance Reaction Codes Entered Date Inactivated Date Status * NO KNOWN DRUG ALLERGIES Unknown 05/23/2016 No Inactive Date Active Past Medical History Illness Codes Condition Status Onset Date Resolved Date Cellulitis of right finger ICD-9: 681.00 ICD-10: L03.011 Active 10/21/2018 Unknown Pain in right hand ICD -9: 729.5 ICD-10: M79.641 Active 10/21/2018 Unknown Type 2 diabetes mellitus with foot ulcer ICD-9: 250.80 ICD-10: E11.621 Active 10/08/2016 Unknown Cellulitis of left lower limb ICD-9: [...] Codes Effective Dates Condition Status Cellulitis of right finger ICD-9: 681.00 ICD-10: L03.011 10/21/2018 Active Pain in right hand ICD -9: 729.5 ICD-10: M79.641 10/21/2018 Active Type 2 diabetes mellitus with foot ulcer ICD-9: 250.80 ICD-10: E11.621 10/08/2016 Active Cellulitis of left lower limb ICD-9: [...] Start Date Stop Date Status Fill Instructions doxycycline hyclate 100 mg tablet RxNorm: 0015301 1 Tablet(s) PO BID 10/21/2018 10/27/2018 Active ketorolac 60 mg/2 mL intramuscular solution RxNorm: 0781855 Milliliter(s) IM 10/21/2018 10/21/2018 Inactive Levaquin 500 mg tablet RxNorm: 995627 1 Tablet(s) PO daily 10/23/2018 Active albuterol sulfate 2.5 mg/3 mL (0.083 %) solution for nebulization RxNorm: 606481 3 Milliliter(s) INH UD 10/14/2018 No Stop Date Active Tessalon Perles 100 mg capsule RxNorm: 781662 1-2 Capsule(s) PO TID PRN 10/14/2018 No Stop Date Active Levaquin 500 mg tablet RxNorm: 209580 1 Tablet(s) PO daily 08/201810/16/2018 Inactive Coreg 6.25 mg tablet RxNorm: 978435 TAKE ONE TABLET BY MOUTH TWICE A DAY 09/30/2018 03/28/2019 Active albuterol sulfate 2.5 mg/3 mL (0.083 %) solution for nebulization RxNorm: 583870 3 Milliliter(s) INH UD 09/30/201807/2018 Inactive Kenalog 40 mg/mL suspension for injection RxNorm: 1628706 1.5 Milliliter(s) Inj 09/30/2018 09/30/2018 Inactive Keflex 500 mg capsule RxNorm: 737055 1 Capsule(s) PO TID 201710/03/2018 Inactive prednisone 20 mg tablet RxNorm: 555207 2 Tablet(s) PO daily 09/29/2018 Inactive Kenalog 40 mg/mL suspension for injection RxNorm: 1383843 Milliliter(s) Inj 09/11/2018 09/11/2018 Inactive Zyrtec 10 mg tablet RxNorm: 4405765 1 Tablet(s) PO daily 09/0910/08/2018 Inactive Keflex 500 mg capsule RxNorm: 309119 1 Capsule(s) PO TID 201709/15/2018 Inactive Tresiba FlexTouch U-200 insulin 200 unit/mL (3 mL) subcutaneous pen RxNorm: 3041858 50 Unit(s) SQ daily 08/30/2018 08/29/2018 Inactive please give him 30 day supply Tresiba FlexTouch U-200 insulin 200 unit/mL (3 mL) subcutaneous pen RxNorm: 9376854 50 Unit(s) SQ daily 08/30/2018 09/28/2018 Inactive please give him 30 day supply Novolog Flexpen U-100 Insulin aspart 100 unit/mL subcutaneous RxNorm: 7030855 8 Unit(s) SQ AC 08/13/2018 No Stop Date Active Novolog Flexpen U-100 Insulin aspart 100 unit/mL subcutaneous RxNorm: 4235926 8 Unit(s) SQ AC 07/22/20182017 Inactive this is an update on his medication Novolog Flexpen U-100 Insulin aspart 100 unit/mL subcutaneous RxNorm: 6340752 12 Unit(s) SQ AC 07/05/20182017 Inactive this is an update on his medication Toujeo SoloStar U-300 Insulin 300 unit/mL (1.5 mL) subcutaneous pen RxNorm: 8888730 INJECT 50 UNITS UNDER THE SKIN DAILY 07/01/2018 08/29/2018 Inactive Mucinex 600 mg tablet, extended release RxNorm: 605861 1 Tablet(s) PO BID 06/28/2018 07/04/2018 Inactive Zofran 4 mg tablet RxNorm: 674670 1 Tablet(s) PO TID as needed nausea 06/28/2018 07/02/2018 Inactive Kenalog 40 mg/mL suspension for injection RxNorm: 3721031 Milliliter(s) Inj 06/28/2018 06/28/2018 Inactive Flonase Allergy Relief 50 mcg/actuation nasal spray, suspension RxNorm: 2933232 1 [place] NASAL BID 06/28/20182017 Inactive Lyrica 50 mg capsule RxNorm: 625675 Capsule(s) PO daily 201707/07/2018 Inactive Novolog Flexpen U-100 Insulin aspart 100 unit/mL subcutaneous RxNorm: 4534297 10 Unit(s) SQ AC 06/18/20182017 Inactive this is an update on his medication Lasix 20 mg tablet RxNorm: 610975 1 Tablet(s) PO BIW 201707/02/2018 Inactive atorvastatin 80 mg tablet RxNorm: 163834 1 Tablet(s) PO QHS 04/201812/06/2018 Active clonazepam 1 mg tablet RxNorm: 938654 2 Tablet(s) PO HS 201706/04/2019 Active clonazepam 1 mg tablet RxNorm: 604397 2 Tablet(s) PO HS as needed 06/10/2018 06/09/2018 Inactive Lyrica 50 mg capsule RxNorm: 347397 Capsule(s) PO daily 201707/08/2018 Inactive Lasix 20 mg tablet RxNorm: 1 Tablet(s) PO TIW 201706/11/2018 Inactive Toujeo SoloStar U-300 Insulin 300 unit/mL (1.5 mL) subcutaneous pen RxNorm: 2710513 50 Unit(s) SQ daily 05/07/2018 06/30/2018 Inactive meloxicam 15 mg tablet RxNorm: 917910 15 Milligram(s) PO daily 05/02/2018 05/12/2018 Inactive ketorolac 30 mg/mL injection solution RxNorm: 558579 2 Milliliter(s) Inj 05/02/2018 05/02/2018 Inactive Toujeo SoloStar U-300 Insulin 300 unit/mL (1.5 mL) subcutaneous pen RxNorm: 9273535 45 Unit(s) daily 04/29/2018 Inactive clonazepam 1 mg tablet RxNorm: 554505 1 Tablet(s) PO Q8 as needed 04/29/2018 06/09/2018 Inactive doxycycline hyclate 100 mg tablet RxNorm: 5252573 1 Tablet(s) PO BID 04/29/2018 05/12/2018 Inactive Cymbalta 30 mg capsule,delayed release RxNorm: 400432 1 Capsule(s) PO QAM 03/13/2018 10/08/2018 Inactive Lexapro 10 mg tablet RxNorm: 162252 1 Tablet(s) PO QPM 201703/03/2018 Inactive Toujeo SoloStar U-300 Insulin 300 unit/mL (1.5 mL) subcutaneous pen RxNorm: 5249517 20 Unit(s) daily 02/28/2018 Inactive Protonix 40 mg tablet,delayed release RxNorm: 080521 1 Tablet(s) PO daily 01/29/2018 06/09/2018 Inactive clonazepam 1 mg tablet RxNorm: 239550 1 Tablet(s) PO Q8 as needed 12/12/2017 03/10/2018 Inactive Tamiflu 75 mg capsule RxNorm: 196701 1 Capsule(s) PO BID 201712/03/2017 Inactive doxycycline hyclate 100 mg capsule RxNorm: 3183847 1 Capsule(s) PO BID 09/07/2017 09/20/2017 Inactive doxycycline hyclate 100 mg capsule RxNorm: 2015657 1 Capsule(s) PO BID 08/27/2017 09/06/2017 Inactive prednisone 20 mg tablet RxNorm: 151086 2 Tablet(s) PO daily 08/31/2017 Inactive clopidogrel 75 mg tablet RxNorm: 757530 1 Tablet(s) PO daily 06/09/2018 Inactive atorvastatin 40 mg tablet RxNorm: 043937 1 Tablet(s) PO QHS 02/27/2018 Inactive losartan 25 mg tablet RxNorm: 125016 TAKE ONE TABLET BY MOUTH DAILY 08/22/2017 06/09/2018 Inactive Toujeo SoloStar 300 unit/mL (1.5 mL) subcutaneous insulin pen RxNorm: 5498370 45 Unit(s) daily 08/17/2017 08/20/2017 Inactive mupirocin 2 % topical ointment RxNorm: 535517 1 Application TOP TID to the lesions on chest 08/16/2017 08/25/2017 Inactive Toujeo SoloStar 300 unit/mL (1.5 mL) subcutaneous insulin pen RxNorm: 0725247 40 Unit(s) daily 08/16/2017 08/16/2017 Inactive valacyclovir 1 gram tablet RxNorm: 271248 1 Tablet(s) PO TID 08/01/2017 Inactive clonazepam 1 mg tablet RxNorm: 772031 1 Tablet(s) PO Q8 as needed 07/03/2017 09/30/2017 Inactive Levaquin 500 mg tablet RxNorm: 611935 1 Tablet(s) PO daily 06/25/2017 Inactive Levaquin 500 mg tablet RxNorm: 126635 1 Tablet(s) PO daily 06/21/2017 Inactive losartan 25 mg tablet RxNorm: 311835 1 Tablet(s) PO daily 201608/16/2017 Inactive nystatin 100,000 unit/mL oral suspension RxNorm: 570985 5 Milliliter(s) PO QID Swish et swallow 06/18/2017 06/17/2017 Inactive nystatin 100,000 unit/mL oral suspension RxNorm: 692096 5 Milliliter(s) PO QID Swish et swallow 06/18/2017 06/27/2017 Inactive Cipro 500 mg tablet RxNorm: 958650 1 Tablet(s) PO BID 201606/18/2017 Inactive Cipro 500 mg tablet RxNorm: 576487 1 Tablet(s) PO BID 201606/11/2017 Inactive Toujeo SoloStar 300 unit/mL (1.5 mL) subcutaneous insulin pen RxNorm: 6767175 INJECT 10 UNITS UNDER THE SKIN DAILY 06/12/2017 08/15/2017 Inactive Keflex 500 mg capsule RxNorm: 716690 1 Capsule(s) PO TID 201606/13/2017 Inactive doxycycline hyclate 100 mg capsule RxNorm: 4084068 1 Capsule(s) PO BID 05/17/2017 05/21/2017 Inactive doxycycline hyclate 100 mg capsule RxNorm: 0634058 1 Capsule(s) PO BID 05/11/2017 05/16/2017 Inactive losartan 25 mg tablet RxNorm: 600949 1 Tablet(s) PO daily 201606/17/2017 Inactive atorvastatin 40 mg tablet RxNorm: 083413 1 Tablet(s) PO daily 03/01/2017 08/23/2017 Inactive clopidogrel 75 mg tablet RxNorm: 978409 1 Tablet(s) PO daily 08/23/2017 Inactive Flonase Allergy Relief 50 mcg/actuation nasal spray, suspension RxNorm: 3484353 2 [place] NASAL daily 02/16/20172016 Inactive Augmentin 875 mg-125 mg tablet RxNorm: 952339 1 Tablet(s) PO BID 02/16/2017 02/22/2017 Inactive GET PROBIOTIC TO TAKE WHILE ON ABX Tamiflu 75 mg capsule RxNorm: 861703 1 Capsule(s) PO BID 201602/20/2017 Inactive ceftriaxone 500 mg solution for injection RxNorm: 8936941 1 Milliliter(s) Inj 02/16/2017 02/16/2017 Inactive Kenalog 40 mg/mL suspension for injection RxNorm: 7176004 1 Milliliter(s) Inj 02/16/2017 02/16/2017 Inactive Toujeo SoloStar 300 unit/mL (1.5 mL) subcutaneous insulin pen RxNorm: 5543179 25 Unit(s) SQ QAM 02/12/2017 06/10/2017 Inactive Toujeo SoloStar 300 unit/mL (1.5 mL) subcutaneous insulin pen RxNorm: 3579016 10 Unit(s) SQ QAM 02/05/2017 02/11/2017 Inactive lisinopril 10 mg tablet RxNorm: 159461 1 Tablet(s) PO daily 02/28/2017 Inactive atorvastatin 40 mg tablet RxNorm: 509462 1 Tablet(s) PO daily 02/01/2017 02/28/2017 Inactive doxycycline hyclate 100 mg capsule RxNorm: 8646849 1 Capsule(s) PO BID 02/01/2017 02/10/2017 Inactive clonazepam 1 mg tablet RxNorm: 517987 1 Tablet(s) PO Q8 as needed 10/09/2016 01/05/2017 Inactive ceftriaxone 1 gram solution for injection RxNorm: 3073691 Inj 10/06/2016 10/06/2016 Inactive cyclobenzaprine 10 mg tablet RxNorm: 438071 1/2-1 Tablet(s) PO TID PRN 07/18/2016 01/28/2017 Inactive clonazepam 1 mg tablet RxNorm: 447689 1 Tablet(s) PO Q8 as needed 05/31/2016 05/29/2016 Inactive clonazepam 1 mg tablet RxNorm: 898035 1 Tablet(s) PO Q8 as needed 05/31/2016 08/28/2016 Inactive Toujeo SoloStar 300 unit/mL (1.5 mL) subcutaneous insulin pen RxNorm: 1630761 10 Unit(s) SQ daily 05/23/2016 01/28/2017 Inactive Crestor 10 mg tablet RxNorm: 350086 1 Tablet(s) PO QHS 201501/28/2017 Inactive Crestor 10 mg tablet RxNorm: 252308 1 Tablet(s) PO QHS 201505/18/2016 Inactive clonazepam 1 mg tablet RxNorm: 455117 1 Tablet(s) PO Q8 as needed 04/25/2016 05/30/2016 Inactive prednisone 20 mg tablet RxNorm: 541471 3 Tablet(s) PO daily 06/201602/10/2016 Inactive prednisone 20 mg tablet RxNorm: 092682 3 Tablet(s) PO daily 06/201605/14/2016 Inactive Kenalog 40 mg/mL suspension for injection RxNorm: 6798211 Milliliter(s) Inj 01/20/2016 01/20/2016 Inactive aspirin 81 mg tablet,delayed release RxNorm: 406097 1 Tablet(s) PO daily No Start Date Active Brilinta 90 mg tablet RxNorm: 0491119 1 Tablet(s) PO BID No Start Date Active valsartan 80 mg tablet RxNorm: 085492 1 Tablet(s) PO daily No Start Date Active acetaminophen 500 mg tablet RxNorm: 066804 1-2 Tablet(s) PO as needed No Start Date Active clopidogrel 75 mg tablet RxNorm: 098148 1 Tablet(s) PO daily No Start Date 02/28/2017 Inactive Novolog Flexpen U-100 Insulin aspart 100 unit/mL subcutaneous RxNorm: 9540782 5 units with breakfast lunch and 10 supper Unit(s) SQ No Start Date 06/17/2018 Inactive clonazepam 1 mg tablet RxNorm: 267206 1 Tablet(s) PO QHS No Start Date 04/24/2016 Inactive Coreg 6.25 mg tablet RxNorm: 899511 1 Tablet(s) PO BID No Start Date 09/29/2018 Inactive acyclovir 400 mg tablet RxNorm: 834867 2 Tablet(s) PO 5x daily No Start Date 02/28/2017 Inactive Lyrica 50 mg capsule RxNorm: 243661 Capsule(s) PO BID No Start Date 06/09/2018 Inactive Vraylar 3 mg capsule RxNorm: 9262921 1 Capsule(s) PO daily No Start Date 03/12/2018 Inactive Medication Administered Medication Codes Instructions Start Date Status ketorolac 60 mg/2 mL intramuscular solution RxNorm: 4305380 Milliliter 10/21/2018 No longer Active Kenalog 40 mg/mL suspension for injection RxNorm: 3684035 1.5Milliliter 09/30/2018 No longer Active Kenalog 40 mg/mL suspension for injection RxNorm: 3833142 Milliliter 09/11/2018 No longer Active Kenalog 40 mg/mL suspension for injection RxNorm: 0164037 Milliliter 06/28/2018 No longer Active ketorolac 30 mg/mL injection solution RxNorm: 371625 2Milliliter 05/02/2018 No longer Active ceftriaxone 500 mg solution for injection RxNorm: 8274263 1Milliliter 02/16/2017 No longer Active Kenalog 40 mg/mL suspension for injection RxNorm: 5946005 1Milliliter 02/16/2017 No longer Active ceftriaxone 1 gram solution for injection RxNorm: 4146161 10/06/2016 No longer Active Kenalog 40 mg/mL suspension for injection RxNorm: 0899088 Milliliter 01/20/2016 No longer Active Immunizations Vaccine Codes Date Status Influenza CVX: 141 07/22/2018 completed Influenza CVX: 141 08/16/2017 completed Assessments Condition Codes Effective Dates Cellulitis of right finger ICD-10: L03.011 ICD-9: 681.00 10/21/2018 Type 2 diabetes mellitus with foot ulcer ICD-10: E11.621 ICD-9: 250.80 10/21/2018 Pain in right hand ICD-10: M79.641 [...] For Visit Effective Dates Notes hand pain 10/21/2018 lower leg pain 10/17/2018 [...] Item Item Code Result Date Culture Sputum 919570 LOWER RESPIRATORY TRACT CULTURE SEE NOTES 10/16/2018 LIPID GRP 9141083 CHOLESTEROL TNP:Duplicate Order 09/10/2018 LIPID GRP Triglyceride TNP:Duplicate Order 2017 LIPID GRP [id number] HDL CHOLESTEROL TNP:Duplicate Order 2017 LIPID GRP Chol/HDL Ratio TNP:Duplicate Order 2017 LIPID GRP LDL Cholesterol TNP:Duplicate Order 2017 A1C HPLC 9861237 Hgb A1c 70049-6 TNP:Duplicate Order 2017 C Diff An [id number] GDH TNP:Lab Request 06/22/2018 C Diff An [id number] Toxin A/B TNP:Lab Request 06/22/2018 C Diff An [id number] C Diff Analyzer TNP:Lab Request 2017 C Diff An [id number] IC OK? TNP:Lab Request 06/22/2018 CBC 0286159 WBC 6.4 10e9/L 05/02/2018 CBC 2223495 RBC 5.60 10e12/L 05/02/2018 CBC 4441190 HEMOGLOBIN 17.0 g/dL 05/02/2018 CBC 4469782 HEMATOCRIT 48.0 % 05/02/2018 CBC 4496826 MCV 85.7 fL 05/02/2018 CBC 1004363 MCH 30.4 pg 05/02/2018 CBC 9197303 MCHC 35.4 g/dL 05/02/2018 CBC 4172047 PLATELET COUNT 166 10e9/L 05/02/2018 CBC 6142029 Mean Plt Volume 11.6 fL 05/02/2018 CBC 3759287 Neut Auto 48.6 % 05/02/2018 CBC 1490317 Lymph Auto 41.7 % 05/02/2018 CBC 2047349 [place] Auto 8.1 % 05/02/2018 CBC 1960286 RDW 13.1 % 05/02/2018 CBC 8928567 Eos Auto 1.1 % 05/02/2018 CBC 0865332 Baso Auto 0.5 % 05/02/2018 CBC 5843208 Neutrophil Abs 3.11 10e9/L 05/02/2018 CBC 3408098 Lymphocyte Abs 2.67 10e9/L 05/02/2018 CBC 4074435 Monocyte Abs 0.52 10e9/L 05/02/2018 CBC 5725991 Eosinophil Abs 0.07 10e9/L 05/02/2018 CBC 2102123 RDW-SD 40.0 fL 05/02/2018 CBC 4555797 Basophil Abs 0.03 10e9/L 05/02/2018 CHEM 14 1651828 AST 17 U/L 05/02/2018 CHEM 14 7996679 ALT 17 U/L 05/02/2018 CHEM 14 9347383 BUN 17 mg/dL 05/02/2018 CHEM 14 0075171 ALBUMIN 4.0 g/dL 05/02/2018 CHEM 14 3816428 CHLORIDE 97 mmol/L 05/02/2018 CHEM 14 4954916 Bili Total 0.9 mg/dL 05/02/2018 CHEM 14 0098645 ALK PHOS 67 U/L 05/02/2018 CHEM 14 8512081 SODIUM 135 mmol/L 05/02/2018 CHEM 14 2789908 CREATININE 1.18 mg/dL 05/02/2018 CHEM 14 5883652 CALCIUM 9.4 mg/dL 05/02/2018 CHEM 14 5772422 POTASSIUM 4.4 mmol/L 05/02/2018 CHEM 14 6727549 TOTAL PROTEIN 6.9 g/dL 05/02/2018 CHEM 14 0146030 GLUCOSE 316 mg/dL 05/02/2018 CHEM 14 6858476 Bicarbonate 29 mmol/L 05/02/2018 CHEM 14 1675774 AGAP 9 mmol/L 05/02/2018 MEAN GLUC 7189911 Calc Mean Gluc 283 mg/dL 05/02/2018 A1C HPLC 4818095 Hgb A1c 38905-8 11.5 % 05/02/2018 GFR CALC 0756168 GFR Non Afr Amr >60 mL/min 05/02/2018 GFR CALC 8072079 GFR Afr Amr >60 mL/min 05/02/2018 JIC Gold 3793081 JIC Gold Complete 02/28/2018 GFR CALC 3428808 GFR Non Afr Amr >60 mL/min 02/28/2018 GFR CALC 9433987 GFR Afr Amr >60 mL/min 02/28/2018 UA W/CII 3576264 UA Urine Appear Normal 02/28/2018 UA W/CII 2052998 UA Protein 1+ 02/28/2018 UA W/CII 1603409 UA Hemoglobin Negative 02/28/2018 UA W/CII 0001208 UA Glucose 4+ 02/28/2018 UA W/CII 0621009 UA Ketones Trace 02/28/2018 UA W/CII 5131594 UA pH 5.5 02/28/2018 UA W/CII 4699697 U Spec [place] 1.015 02/28/2018 UA W/CII 3346437 UA Bilirubin Negative 02/28/2018 UA W/CII 8918637 UA Nitrite NEG 02/28/2018 UA W/CII 9799542 UA Leuk Esteras Negative 02/28/2018 MICR 5632690 UA WBC/hpf 1 02/28/2018 MICR 9909584 UA RBC hpf 2 02/28/2018 MICR 8164185 UA WBC auto 3.8 /uL 02/28/2018 MICR 6255226 UA RBC auto 12.2 /uL 02/28/2018 MICR 0413194 UA SQ EPI auto 2.3 /uL 02/28/2018 MICR 6959368 UA H Cast auto 0.10 /uL 02/28/2018 CBC 5842430 WBC 6.4 10e9/L 02/28/2018 CBC 3943093 RBC 5.51 10e12/L 02/28/2018 CBC 9395637 HEMOGLOBIN 16.7 g/dL 02/28/2018 CBC 7852735 HEMATOCRIT 46.9 % 02/28/2018 CBC 7042182 MCV 85.1 fL 02/28/2018 CBC 9214623 MCH 30.3 pg 02/28/2018 CBC 4674333 MCHC 35.6 g/dL 02/28/2018 CBC 8011350 PLATELET COUNT 173 10e9/L 02/28/2018 CBC 8659626 Mean Plt Volume 11.6 fL 02/28/2018 CBC 5573731 Neut Auto 51.8 % 02/28/2018 CBC 2890883 Lymph Auto 39.9 % 02/28/2018 CBC 1275392 [place] Auto 7.3 % 02/28/2018 CBC 9037972 Eos Auto 0.8 % 02/28/2018 CBC 4159467 RDW 13.3 % 02/28/2018 CBC 1665092 Baso Auto 0.2 % 02/28/2018 CBC 0839479 Neutrophil Abs 3.32 10e9/L 02/28/2018 CBC 1958240 Lymphocyte Abs 2.55 10e9/L 02/28/2018 CBC 1795408 Monocyte Abs 0.47 10e9/L 02/28/2018 CBC 4332771 Eosinophil Abs 0.05 10e9/L 02/28/2018 CBC 7644887 Basophil Abs 0.01 10e9/L 02/28/2018 CBC 9301521 RDW-SD 40.8 fL 02/28/2018 CHEM 14 5248097 AST 17 U/L 02/28/2018 CHEM 14 9697598 ALT 17 U/L 02/28/2018 CHEM 14 9839011 BUN 20 mg/dL 02/28/2018 CHEM 14 9055778 ALBUMIN 4.1 g/dL 02/28/2018 CHEM 14 8719065 CHLORIDE 97 mmol/L 02/28/2018 CHEM 14 2399105 Bili Total 1.3 mg/dL 02/28/2018 CHEM 14 4171248 ALK PHOS 78 U/L 02/28/2018 CHEM 14 3544066 SODIUM 135 mmol/L 02/28/2018 CHEM 14 3208586 CREATININE 1.09 mg/dL 02/28/2018 CHEM 14 9475942 CALCIUM 9.6 mg/dL 02/28/2018 CHEM 14 0508476 POTASSIUM 3.8 mmol/L 02/28/2018 CHEM 14 6094607 TOTAL PROTEIN 7.3 g/dL 02/28/2018 CHEM 14 5288376 GLUCOSE 349 mg/dL 02/28/2018 CHEM 14 4323900 Bicarbonate 29 mmol/L 02/28/2018 CHEM 14 1545684 AGAP 9 mmol/L 02/28/2018 [place] Spotted Fever Igg/Igm 051925 FEI MT SPOTTED FEVER IGM EIA . 09/05/2017 [place] Spotted Fever Igg/Igm 595378 RMSF, IGM 0.17 index 09/05/2017 [place] Spotted Fever Igg/Igm 751872 FEI MT SPOTTED FEVER IGG EIA FLEX . 09/05/2017 [place] Spotted Fever Igg/Igm 081910 RMSF, IGG SCREEN-FLEX Positive 09/05/2017 Fei Mtn Spot'D Fev Igg 737575 RMSF, IGG -TITER IFA <1:64 11/2016 Ehrlichia Chaffeensis Antibody Igm 185623 EHRLICHIA CHAFFEENSIS IGM < 1:16 09/03/2017 Ehrlichia Chaffeensis Antibody Igg 849252 EHRLICHIA CHAFFEENSIS IGG <1:64 09/03/2017 Lymes Disease Total Antibodies With Western Blot Reflex B. BURGDORFERI, IGG/IGM 0.223 08/30/2017 Lymes Disease Total Antibodies With Western Blot Reflex C-Reactive Protein Qnt Crqnt CRP 0.00 mg/dl 08/27/2017 Sed Rate Ord21 ESR 8 mm/hr 08/27/2017 Comp Metabolic Raz099 NA 135 mEq/L 08/16/2017 Comp Metabolic Vdj167 K 4.1 mEq/L 08/16/2017 Comp Metabolic Dmw070 CL 98 mEq/L 08/16/2017 Comp Metabolic Jzj138 CO2 28.0 mEq/L 08/16/2017 Comp Metabolic Enr842 ANION GAP 13 08/16/2017 Comp Metabolic Fck931 GLUCOSE 299 mg/dL 08/16/2017 Comp Metabolic Mlf811 Creat 0.9 mg/dL 08/16/2017 Comp Metabolic Atr868 eGFR 90 ml/min/1.73m2 08/16/2017 Comp Metabolic Wwb644 BUN 20 mg/dL 08/16/2017 Comp Metabolic Lga339 B/C Ratio 21.5 Ratio 08/16/2017 Comp Metabolic Wgo051 CALCIUM 9.2 mg/dL 08/16/2017 Comp Metabolic Epk962 ALK PHOS 84 U/L 08/16/2017 Comp Metabolic Jle178 AST(SGOT) 19 U/L 08/16/2017 Comp Metabolic Iuk591 ALT(SGPT) 24 U/L 08/16/2017 Comp Metabolic Ybi474 BILI T 1.1 mg/dL 08/16/2017 Comp Metabolic Prz603 ALBUMIN 4.2 g/dL 08/16/2017 Comp Metabolic Rrz700 TPRO 7.2 g/dL 08/16/2017 Comp Metabolic Mvk676 GLOB 3.0 g/dL 08/16/2017 Comp Metabolic Frv368 A/G Ratio 1.4 Ratio 08/16/2017 Comp Metabolic Yok545 Osmo 284 mOsmo 08/16/2017 %Hba1C Fbu744 % HbA1c 36372-1 12.5 % 08/16/2017 %Hba1C Fkp665 Gluc Ave 312 mg/dL 08/16/2017 Urine Culture Ucult Complete NO Growth Day 2 06/23/2017 Urine Culture Ucult Preliminary NO Growth Day 1 06/23/2017 C RAP A SC [id number] Strep A Negative 06/08/2017 %Hba1C Eby427 % HbA1c 21948-5 9.5 % 05/04/2017 %Hba1C Qfi233 Gluc Ave 226 mg/dL 05/04/2017 Tsh Ord6 [...] 31.7 pg 05/04/2017 Cbc With Differential Ord2 [place]% 8.5 % 05/04/2017 Cbc With Differential Ord2 [...] 2.48 K/ul 05/04/2017 Cbc With Differential Ord2 [place] ABS# 0.5 K/ul 05/04/2017 Cbc With Differential Ord2 Eos ABS# 0.1 K/ul 05/04/2017 Cbc With Differential Ord2 Baso ABS# 0.0 K/ul 05/04/2017 Comp Metabolic Cvv830 NA 135 mEq/L 05/04/2017 Comp Metabolic Rot223 K 4.2 mEq/L 05/04/2017 Comp Metabolic Nxf674 CL 99 mEq/L 05/04/2017 Comp Metabolic Oyw195 CO2 26.0 mEq/L 05/04/2017 Comp Metabolic Yxn938 ANION GAP 14 05/04/2017 Comp Metabolic Msg171 GLUCOSE 277 mg/dL 05/04/2017 Comp Metabolic Fbm033 Creat 0.9 mg/dL 05/04/2017 Comp Metabolic Ggi405 eGFR 96 ml/min/1.73m2 05/04/2017 Comp Metabolic Yft556 BUN 23 mg/dL 05/04/2017 Comp Metabolic Yux119 B/C Ratio 26.1 Ratio 05/04/2017 Comp Metabolic Ovt197 CALCIUM 8.9 mg/dL 05/04/2017 Comp Metabolic Bjy021 ALK PHOS 81 U/L 05/04/2017 Comp Metabolic Yfk545 AST(SGOT) 21 U/L 05/04/2017 Comp Metabolic Mpo497 ALT(SGPT) 27 U/L 05/04/2017 Comp Metabolic Ydh373 BILI T 1.2 mg/dL 05/04/2017 Comp Metabolic Orb089 ALBUMIN 4.0 g/dL 05/04/2017 Comp Metabolic Mhy994 TPRO 6.7 g/dL 05/04/2017 Comp Metabolic Shy463 GLOB 2.7 g/dL 05/04/2017 Comp Metabolic Den291 A/G Ratio 1.5 Ratio 05/04/2017 Comp Metabolic Zvh817 Osmo 284 mOsmo 05/04/2017 C A/B FLU 3925552 Influenza A Scr Negative 02/16/2017 C A/B FLU 6983771 Influenza B Scr Positive 02/16/2017 Cbc With [...] 30.3 pg 05/23/2016 Cbc With Differential Ord2 [place]% 8.8 % 05/23/2016 Cbc With Differential Ord2 [...] 2.07 K/ul 05/23/2016 Cbc With Differential Ord2 [place] ABS# 0.5 K/ul 05/23/2016 Cbc With Differential Ord2 Eos ABS# 0.1 K/ul 05/23/2016 Cbc With Differential Ord2 Baso ABS# 0.0 K/ul 05/23/2016 Lipid Ord30 CHOL 397 mg/dL 05/17/2016 Lipid Ord30 HDL 48.0 mg/dl 05/17/2016 Lipid Ord30 TRIG 578 mg/dL 05/17/2016 Lipid Ord30 LDL Unable to calculate Due to elevated triglycerides mg/dL 05/17/2016 Lipid Ord30 C/HDL 8.3 Ratio 05/17/2016 %Hba1C Blb658 % HbA1c 71297-8 12.4 % 05/16/2016 %Hba1C Ltk354 Gluc Ave 309 mg/dL 05/16/2016 Cbc With [...] 87.4 fl 05/15/2016 Cbc With Differential Ord2 [place]% 7.8 % 05/15/2016 Cbc With Differential Ord2 [...] 2.04 K/ul 05/15/2016 Cbc With Differential Ord2 [place] ABS# 0.5 K/ul 05/15/2016 Cbc With Differential Ord2 Eos ABS# 0.1 K/ul 05/15/2016 Cbc With Differential Ord2 Baso ABS# 0.0 K/ul 05/15/2016 Tsh Ord6 hTSH II 1.70 uIU/mL 05/15/2016 Comp Metabolic Xtf493 NA 135 mEq/L 05/15/2016 Comp Metabolic Dmq668 K 3.9 mEq/L 05/15/2016 Comp Metabolic Tgt084 CL 96 mEq/L 05/15/2016 Comp Metabolic Hao591 CO2 27.0 mEq/L 05/15/2016 Comp Metabolic Inc358 ANION GAP 16 05/15/2016 Comp Metabolic Epf503 GLUCOSE 183 mg/dL 05/15/2016 Comp Metabolic Ewg942 Creat 1.1 mg/dL 05/15/2016 Comp Metabolic Fxv074 eGFR 71 ml/min/1.73m2 05/15/2016 Comp Metabolic Rnm404 BUN 17 mg/dL 05/15/2016 Comp Metabolic Kdz405 B/C Ratio 14.9 Ratio 05/15/2016 Comp Metabolic Wbb579 CALCIUM 9.6 mg/dL 05/15/2016 Comp Metabolic Atm193 ALK PHOS 100 U/L 05/15/2016 Comp Metabolic Qxy381 AST(SGOT) 20 U/L 05/15/2016 Comp Metabolic Xpf799 ALT(SGPT) 20 U/L 05/15/2016 Comp Metabolic Hoy137 BILI T 1.3 mg/dL 05/15/2016 Comp Metabolic Ijr408 ALBUMIN 4.6 g/dL 05/15/2016 Comp Metabolic Fnz330 TPRO 8.1 g/dL 05/15/2016 Comp Metabolic Roo936 GLOB 3.5 g/dL 05/15/2016 Comp Metabolic Dbj571 A/G Ratio 1.3 Ratio 05/15/2016 Comp Metabolic Dxl428 Osmo 276 mOsmo 05/15/2016 Review of Systems System Result Effective Dates Constitutional recent illness 10/21/2018 Constitutional anorexia 10/21/2018 [...] of skin Location: face 05/04/2017 patch left mormonism Full Exam - General 1994 Constitutional general [...] CPT-4: J3301 09/30/2018 THER/PROPH/DIAG INJ SC/IM CPT-4: 28020 09/11/2018 TRIAMCINOLONE ACET INJ NOS CPT-4: J3301 09/11/2018 IMMUNIZATION ADMIN CPT -4: 82587 07/22/2018 FLU VAC NO PRSV 4 MENA 3 YRS+ CPT-4: 54541 07/22/2018 TRIAMCINOLONE ACET INJ NOS CPT-4: J3301 06/28/2018 KETOROLAC TROMETHAMINE INJ CPT-4: J1885 05/02/2018 FLU VAC NO PRSV 4 MENA 3 YRS+ CPT-4: 73851 08/16/2017 IMMUNIZATION ADMIN CPT -4: 88348 08/16/2017 URINALYSIS NONAUTO W/O SCOPE CPT-4: 96485 06/21/2017 TRIAMCINOLONE ACET INJ NOS CPT-4: J3301 05/04/2017 THER/PROPH/DIAG INJ SC/IM CPT-4: 78383 05/04/2017 TRIAMCINOLONE ACET INJ NOS CPT-4: J3301 02/16/2017 ROCEPHIN, PER 250 MG CPT-4: J0696 02/16/2017 ROCEPHIN, PER 250 MG CPT-4: J0696 10/06/2016 URINALYSIS NONAUTO W/O SCOPE CPT-4: 59495 07/18/2016 TRIAMCINOLONE ACET INJ NOS CPT-4: J3301 01/20/2016 Vital Signs Date Vital 10/21/2018 Blood Pressure 1: 140/90 Code : 8480-6 BMI: 32.9 Code : 15648-0 Heart Rate 1 : 96 bpm Height: 6'2" SpO2: 92% Weight: 256 lbs 10/17/2018 Blood Pressure 1: 110/68 Code : 8480-6 BMI: 32.9 Code : 50013-2 Heart Rate 1 : 82 bpm Height: 6'2" SpO2: 97% Weight: 256 lbs 10/14/2018 Blood Pressure 1: 124/70 Code : 8480-6 BMI: 33.6 Code : 72403-1 Heart Rate 1 : 76 bpm Height: 6'2" SpO2: 99% Temperature: 36.3 (C) / 97.3 (F) Weight: 262 lbs 09/30/2018 Blood Pressure 1: 138/82 Code : 8480-6 BMI: 33.6 Code : 55786-3 Heart Rate 1 : 82 bpm Height: 6'2" SpO2: 98% Temperature: 36.3 (C) / 97.3 (F) Weight: 262 lbs 09/09/2018 Blood Pressure 1: 140/80 Code : 8480-6 BMI: 33.0 Code : 29108-5 Heart Rate 1 : 97 bpm Height: 6'2" SpO2: 93% Temperature: 36.8 (C) / 98.2 (F) Weight: 257 lbs 07/22/2018 Blood Pressure 1: 120/78 Code : 8480-6 BMI: 31.6 Code : 76447-9 Heart Rate 1 : 87 bpm Height: 6'2" SpO2: 98% Weight: 246 lbs 07/16/2018 Blood Pressure 1: 132/74 Code : 8480-6 BMI: 31.2 Code : 39012-6 Heart Rate 1 : 90 bpm Height: 6'2" SpO2: 96% Weight: 243 lbs 07/01/2018 Blood Pressure 1: 142/82 Code : 8480-6 BMI: 31.8 Code : 49234-4 Heart Rate 1 : 88 bpm Height: 6'2" SpO2: 98% Weight: 248 lbs 06/28/2018 Blood Pressure 1: 132/76 Code : 8480-6 BMI: 31.8 Code : 92681-6 Heart Rate 1 : 107 bpm Height: 6'2" SpO2: 98% Temperature: 37.9 (C) / 100.3 (F) Weight: 248 lbs 06/18/2018 Blood Pressure 1: 138/82 Code : 8480-6 BMI: 31.8 Code : 36142-9 Heart Rate 1 : 82 bpm Height: 6'2" SpO2: 97% Weight: 248 lbs 06/04/2018 Blood Pressure 1: 128/84 Code : 8480-6 BMI: 33.9 Code : 31578-7 Heart Rate 1 : 86 bpm Height: 6'2" SpO2: 95% Weight: 264 lbs 05/13/2018 Blood Pressure 1: 130/80 Code : 8480-6 BMI: 31.1 Code : 71330-1 Heart Rate 1 : 100 bpm Height: 6'2" SpO2: 94% Weight: 242 lbs 05/02/2018 Blood Pressure 1: 134/84 Code : 8480-6 BMI: 31.2 Code : 69430-1 Heart Rate 1 : 93 bpm Height: 6'2" SpO2: 98% Weight: 243 lbs 04/29/2018 Blood Pressure 1: 142/88 Code : 8480-6 BMI: 31.6 Code : 85266-1 Heart Rate 1 : 96 bpm Height: 6'2" SpO2: 96% Temperature: 36.7 (C) / 98.1 (F) Weight: 246 lbs 03/13/2018 Blood Pressure 1: 120/76 Code : 8480-6 BMI: 30.9 Code : 60098-2 Heart Rate 1 : 112 bpm Height: 6'2" SpO2: 97% Weight: 241 lbs 03/07/2018 Blood Pressure 1: 108/78 Code : 8480-6 BMI: 30.0 Code : 45888-4 Heart Rate 1 : 87 bpm Height: 6'2" SpO2: 98% Weight: 234 lbs 02/28/2018 Blood Pressure 1: 106/74 Code : 8480-6 BMI: 30.0 Code : 99211-3 Heart Rate 1 : 101 bpm Height: 6'2" SpO2: 98% Temperature: 36.4 (C) / 97.5 (F) Weight: 234 lbs 02/13/2018 Blood Pressure 1: 110/78 Code : 8480-6 BMI: 30.0 Code : 58049-3 Heart Rate 1 : 106 bpm Height: 6'2" SpO2: 98% Weight: 234 lbs 01/29/2018 Blood Pressure 1: 106/68 Code : 8480-6 BMI: 30.0 Code : 18503-6 Heart Rate 1 : 108 bpm Height: 6'2" SpO2: 98% Weight: 234 lbs 08/27/2017 Blood Pressure 1: 134/76 Code : 8480-6 Heart Rate 1: 98 bpm Height: SpO2: 97% Weight: 08/16/2017 Blood Pressure 1: 128/80 Code : 8480-6 BMI: 32.0 Code : 15439-5 Heart Rate 1 : 94 bpm Height: [...] Code : 8480-6 BMI: 31.8 Code : 01735-2 Heart Rate 1 : 102 bpm Height: [...] Code : 8480-6 BMI: 31.8 Code : 92804-3 Heart Rate 1 : 85 bpm Height: 6'2" SpO2: 96% Temperature: 36.6 (C) / 97.9 (F) Weight: 248 lbs 02/12/2017 Blood Pressure 1: 126/76 Code : 8480-6 BMI: 31.8 Code : 22939-9 Heart Rate 1 : 106 bpm Height: 6'2" SpO2: 91% Weight: 248 lbs 02/05/2017 Blood Pressure 1: 146/86 Code : 8480-6 BMI: 31.9 Code : 97772-0 Heart Rate 1 : 98 bpm Height: 6'2" SpO2: 87% Temperature: 36.7 (C) / 98.0 (F) Weight: 248 lbs 8 oz 01/29/2017 Blood Pressure 1: 132/84 Code : 8480-6 BMI: 31.8 Code : 24465-2 Heart Rate 1 : 83 bpm Height: 6'2" SpO2: 97% Weight: 248 lbs 10/13/2016 Blood Pressure 1: 128/72 Code : 8480-6 Heart Rate 1: 86 bpm SpO2: 94% 10/09/2016 Blood Pressure 1: 128/68 Code : 8480-6 Heart Rate 1: 136 bpm SpO2: 94% Temperature: 36.8 (C) / 98.2 (F) 10/06/2016 Blood Pressure 1: 140/80 Code : 8480-6 BMI: 32.1 Code : 65392-4 Heart Rate 1 : 94 bpm Height: 6'2" SpO2: 95% Weight: 250 lbs 07/18/2016 Blood Pressure 1: 128/86 Code : 8480-6 BMI: 32.1 Code : 62167-6 Heart Rate 1 : 89 bpm Height: 6'2" SpO2: 96% Weight: 250 lbs 06/22/2016 Blood Pressure 1: 118/70 Code : 8480-6 BMI: 32.1 Code : 35503-1 Heart Rate 1 : 70 bpm Height: 6'2" SpO2: 97% Weight: 250 lbs 05/23/2016 Blood Pressure 1: 128/80 Code : 8480-6 BMI: 32.1 Code : 07713-5 Heart Rate 1 : 76 bpm Height: 6'2" SpO2: 98% Weight: 250 lbs 05/15/2016 Blood Pressure 1: 110/90 Code : 8480-6 BMI: 31.3 Code : 33342-4 Heart Rate 1 : 111 bpm Height: 6'2" SpO2: 97% Temperature: 36.6 (C) / 97.8 (F) Weight: 244 lbs 01/20/2016 Blood Pressure 1: 128/76 Code : 8480-6 BMI: 33.0 Code : 02445-6 Heart Rate 1 : 103 bpm Height: 6'2" SpO2: 95% Weight: 257 lbs Functional Status No Functional Status data History of Present Illness Symptom Name Status Result Effective Date Notes Location on the right 10/21/2018 2nd MCP [...] data Encounters Encounter Performer Location Codes Date ([id number]) 18798 EST. PATIENT, LEVEL III Diagnosis: Cellulitis of right finger[ICD10: L03.011] Diagnosis: Type 2 diabetes mellitus with foot ulcer[ICD10: E11.621] Diagnosis: Pain in right hand[ICD10: M79.641] [facility] CPT-4: 20071 10/21/2018 79553 EST. PATIENT, LEVEL III Diagnosis: Spontaneous ecchymoses[ICD10: R23.3] Diagnosis: Cellulitis of right lower limb[ICD10: L03.115] Diagnosis: Cellulitis of left lower limb[ICD10: L03.116] Madeline Ha MD, [facility] CPT-4: 70391 10/17/2018 ([id number]) 23575 EST. PATIENT, LEVEL III Diagnosis: Cough[ICD10: R05] Diagnosis: Acute bronchitis, unspecified[ICD10: J20.9] Melida Ha MD [facility] CPT-4: 69377 10/14/2018 76125 EST. PATIENT, LEVEL III Diagnosis: Acute laryngopharyngitis[ICD10: J06.0] Diagnosis: Cough[ICD10: R05] Madeline Ha MD, [facility] CPT-4: 98552 09/30/2018 ([id number]) 80119 EST. PATIENT, LEVEL III Diagnosis: Acute recurrent maxillary sinusitis[ICD10: J01.01] Diagnosis: Cough[ICD10: R05] Diagnosis: Type 2 diabetes mellitus with hyperglycemia[ICD10: E11.65] Marcela Ha MD, [facility] CPT-4: 49722 09/09/2018 ([id number]) 73062 EST. PATIENT, LEVEL IV Diagnosis: Essential (primary) hypertension[ICD10: I10] Diagnosis: Mixed hyperlipidemia[ICD10: E78.2] Diagnosis: Bipolar disorder, current episode depressed, moderate[ICD10: F31.32] Diagnosis: Type 2 diabetes mellitus with other specified complication[ICD10: E11.69] Melida Ha MD [facility] CPT-4: 12221 2017 ([id number]) 93529 EST. PATIENT, LEVEL III Diagnosis: Insomnia due to medical condition[ICD10: G47.01] Marcela Ha MD [facility] CPT-4: 01445 07/16/2018 ([id number]) Miscellaneous no charge Diagnosis: Cough[ICD10: R05] Madeline Ha MD, [facility] CPT-4: 71945 07/01/2018 03616 EST. PATIENT, LEVEL III Diagnosis: Cough[ICD10: R05] Diagnosis: Acute laryngopharyngitis[ICD10: J06.0] Diagnosis: Other allergic rhinitis[ICD10: J30.89] Madeline Ha MD, [facility] CPT-4: 99129 06/28/2018 ([id number]) 59859 EST. PATIENT, LEVEL IV Diagnosis: Type 2 diabetes mellitus with hyperglycemia[ICD10: E11.65] Diagnosis: Essential (primary) hypertension[ICD10: I10] Melida Ha MD, [facility] CPT-4: 82482 06/18/2018 ([id number]) 00085 EST. PATIENT, LEVEL IV Diagnosis: Type 2 diabetes mellitus with hyperglycemia[ICD10: E11.65] Diagnosis: Essential (primary) hypertension[ICD10: I10] Diagnosis: Localized edema[ICD10: R60.0] Melida Ha MD, [facility] CPT- 4: 64263 06/04/2018 ([id number]) 08949 EST. PATIENT, LEVEL III Diagnosis: Type 2 diabetes mellitus with hyperglycemia[ICD10: E11.65] Diagnosis: Myalgia[ICD10: M79.1] Diagnosis: Pain in right hip[ICD10: M25.551] Diagnosis: Pain in left hip[ICD10: M25.552] Marcela Ha MD, [facility] CPT-4: 46787 05/13/2018 ([id number]) 41113 EST. PATIENT, LEVEL III Diagnosis: Myalgia[ICD10: M79.1] Diagnosis: Pain in right hip[ICD10: M25.551] Diagnosis: Pain in left hip[ICD10: M25.552] Marcela Ha MD, [facility] CPT-4: 16428 05/02/2018 ([id number]) 92044 EST. PATIENT, LEVEL IV Diagnosis: Essential (primary) hypertension[ICD10: I10] Diagnosis: Type 2 diabetes mellitus with hyperglycemia[ICD10: E11.65] Diagnosis: Major depressive disorder, single episode, moderate[ICD10: F32.1] Diagnosis: Myalgia[ICD10: M79.1] Marcela Ha MD, [facility] CPT-4: 45211 04/29/2018 ([id number]) 46575 EST. PATIENT, LEVEL IV Diagnosis: Type 2 diabetes mellitus with hyperglycemia[ICD10: E11.65] Diagnosis: Essential (primary) hypertension[ICD10: I10] Diagnosis: Major depressive disorder, single episode, moderate[ICD10: F32.1] Melida Ha MD, [facility] CPT-4: 80297 03/13/2018 ([id number]) 48562 EST. PATIENT, LEVEL III Diagnosis: Type 2 diabetes mellitus with hyperglycemia[ICD10: E11.65] Diagnosis: Bipolar disorder, current episode depressed, moderate[ICD10: F31.32] Diagnosis: Orthostatic hypotension[ICD10: I95.1] Marcela Ha MD, [facility] CPT-4: 30575 03/07/2018 ([id number]) 00465 EST. PATIENT, LEVEL IV Diagnosis: Type 2 diabetes mellitus with hyperglycemia[ICD10: E11.65] Diagnosis: Major depressive disorder, single episode, moderate[ICD10: F32.1] Diagnosis: Orthostatic hypotension[ICD10: I95.1] Diagnosis: Other fatigue[ICD10: R53.83] Marcela Ha MD, [facility] CPT-4: 01408 02/28/2018 69706 EST. PATIENT, LEVEL IV Diagnosis: Other fatigue[ICD10: R53.83] Diagnosis: Other malaise[ICD10: R53.81] Diagnosis: Gastro-esophageal reflux disease without esophagitis[ICD10: K21.9] Madeline Ha MD, [facility] CPT-4: 90846 02/13/2018 ([id number]) 15953 EST. PATIENT, LEVEL IV Diagnosis: Type 2 diabetes mellitus with foot ulcer[ICD10: E11.621] Diagnosis: Essential (primary) hypertension[ICD10: I10] Diagnosis: Gastro-esophageal reflux disease without esophagitis[ICD10: K21.9] Marcela Ha MD, [facility] CPT-4: 74032 01/29/2018 15304 EST. PATIENT, LEVEL III Diagnosis: Other malaise[ICD10: R53.81] Diagnosis: Other fatigue[ICD10: R53.83] Diagnosis: Pain in right shoulder[ICD10: M25.511] Diagnosis: Pain in left shoulder[ICD10: M25.512] Madeline Ha MD, [facility] CPT-4: 29457 08/27/2017 ([id number]) 50551 EST. PATIENT, LEVEL IV Diagnosis: Essential (primary) hypertension[ICD10: I10] Diagnosis: Type 2 diabetes mellitus with hyperglycemia[ICD10: E11.65] Diagnosis: VACCIN FOR INFLUENZA[ICD10: Z23] Melida Ha MD, [facility] CPT-4: 95788 08/16/2017 17921 EST. PATIENT, LEVEL III Diagnosis: Zoster without complications[ICD10: B02.9] Madeline Ha MD, [facility] CPT-4: 95878 07/26/2017 ([id number]) 85889 EST. PATIENT, LEVEL III Diagnosis: Cellulitis of right lower limb[ICD10: L03.115] Marcela Ha MD [facility] CPT-4: 00528 07/03/2017 89499 EST. PATIENT, LEVEL II Diagnosis: Laceration without foreign body of left forearm, initial encounter[ ICD10: S51.812A] Marcela Ha MD [facility] CPT-4: 95300 06/29/2017 ([id number]) 81171 EST. PATIENT, LEVEL III Diagnosis: Cellulitis of right lower limb[ICD10: L03.115] Diagnosis: Type 2 diabetes mellitus with foot ulcer[ICD10: E11.621] Marcela Ha MD , [facility] CPT-4: 78195 06/18/2017 ([id number]) 98641 EST. PATIENT, LEVEL IV Diagnosis: Cellulitis of right lower limb[ICD10: L03.115] Diagnosis: Acute laryngopharyngitis[ICD10: J06.0] Diagnosis: Gastro-esophageal reflux disease without esophagitis[ICD10: K21.9] Marcela Ha MD, [facility] CPT-4: 32840 06/07/2017 ([id number]) 36080 EST. PATIENT, LEVEL III Diagnosis: Type 2 diabetes mellitus with hyperglycemia[ICD10: E11.65] Diagnosis: Insect bite (nonvenomous) of abdominal wall, initial encounter[ICD10 : S30.861A] Marcela Ha MD, [facility] CPT-4: 36755 05/17/2017 ([id number]) 90459 EST. PATIENT, LEVEL III Diagnosis: Allergic contact dermatitis due to plants, except food[ICD10: L23.7] Melida Ha MD, [facility] CPT-4: 03949 05/04/2017 ([id number]) 71953 EST. PATIENT, LEVEL III Diagnosis: Essential (primary) hypertension[ICD10: I10] Marcela Ha MD [facility] CPT-4: 68318 03/15/2017 ([id number]) 82904 EST. PATIENT, LEVEL III Diagnosis: Cough[ICD10: R05] Diagnosis: Essential (primary) hypertension[ICD10: I10] Marcela Ha MD [facility] CPT-4: 17050 03/01/2017 ([id number]) 22411 EST. PATIENT, LEVEL III Diagnosis: Cough[ICD10: R05] Diagnosis: Nasal congestion[ICD10: R09.81] Diagnosis: Acute recurrent maxillary sinusitis[ICD10: J01.01] Marcela Ha MD [facility] CPT-4: 26187 02/16/2017 ([id number]) 59315 EST. PATIENT, LEVEL III Diagnosis: Type 2 diabetes mellitus with hyperglycemia[ICD10: E11.65] Marclea Ha MD [facility] CPT-4: 27806 02/12/2017 ([id number]) 62028 EST. PATIENT, LEVEL IV Diagnosis: Type 2 diabetes mellitus with hyperglycemia[ICD10: E11.65] Diagnosis: Muscle weakness (generalized)[ICD10: M62.81] Diagnosis: Disorientation, unspecified[ICD10: R41.0] Marcela Ha MD, [facility] CPT-4: 21510 02/05/2017 ([id number]) Patient admitted to the hospital from clinic (NO CHARGE) Diagnosis: Type 2 diabetes mellitus with hyperglycemia[ICD10: E11.65] Diagnosis: Disorientation, unspecified[ICD10: R41.0] Diagnosis: Muscle weakness (generalized)[ICD10: M62.81] Marcela Ha MD, [facility] CPT-4: 73803Z 01/29/2017 ([id number]) Miscellaneous no charge Diagnosis: Cellulitis of right lower limb[ICD10: L03.115] Marcela Ha MD, [facility] CPT-4: 36176 10/13/2016 ([id number]) Miscellaneous no charge Diagnosis: Type 2 diabetes mellitus with foot ulcer[ICD10: E11.621] Diagnosis: Pain in right foot[ICD10: M79.671] Marcela Ha MD, [facility] CPT-4: 36024 10/09/2016 93270 EST. PATIENT, LEVEL II Diagnosis: Cellulitis of right lower limb[ICD10: L03.115] Marcela Ha MD, [facility] CPT-4: 70886 10/06/2016 ([id number]) 28971 EST. PATIENT, LEVEL IV Diagnosis: Low back pain[ICD10: M54.5] Diagnosis: Other deformities of toe(s) (acquired), left foot[ICD10: M20.5X2] Diagnosis: Type 2 diabetes mellitus with foot ulcer[ICD10: E11.621] Marcela Ha MD , [facility] CPT-4: 35990 07/18/2016 ([id number]) 05311 EST. PATIENT, LEVEL III Diagnosis: Type 2 diabetes mellitus with hyperglycemia[ICD10: E11.65] Marcela Ha MD, [facility] CPT-4: 20870 06/22/2016 ([id number]) 34419 EST. PATIENT, LEVEL IV Diagnosis: Type 2 diabetes mellitus with hyperglycemia[ICD10: E11.65] Diagnosis: Mixed hyperlipidemia[ICD10: E78.2] Diagnosis: Other hemoglobinopathies[ICD10: D58.2] Marcela Ha MD, [facility] CPT-4: 70058 05/23/2016 ([id number]) 86643 EST. PATIENT, LEVEL IV Diagnosis: Type 2 diabetes mellitus with other specified complication[ICD10: E11.69] Diagnosis: Dehydration[ICD10: E86.0] Marcela Ha MD, [facility] CPT-4: 26237 05/15/2016 ([id number]) OFFICE VISIT, NEW - LEVEL 3 Diagnosis: Allergic contact dermatitis due to plants, except food[ICD10: L23.7] Madeline Ha MD, [facility] CPT-4: 01341 01/20/2016 Plan of Care Planned Activity Notes Codes Status Date Visit Plan: Cellulitis -right hand- stop keflex- [...] and plan. 10/21/2018 Appointment: [facility]she[facility]el: [phone] (30 min) Complex 10/21/2018 Patient Education: Patient [...] discharge. 10/17/2018 Appointment: Mad[phone] [facility] (15 min) Moderate 10/17/2018 Patient Education: Patient [...] worsen. 10/14/2018 Appointment: Marcela Oshea WPtel: [phone] [phone] (15 min) Moderate 10/14/2018 Patient Education: Patient Medication Summary Completed 10/14/2018 Care Plan: CHEST X-RAY 2VW FRONTAL&LATL LOINC : 01877-5 Pending 10/14/2018 Visit Plan: URI - Pt [...] spray. 09/30/2018 Appointment: [facility] [phone] [facility] (15 min) Moderate 09/30/2018 Patient Education: Patient [...] A1C 09/09/2018 Appointment: Marcela Oshea WPtel: [phone] [phone] (15 min) Moderate 09/09/2018 Patient Education: Patient Medication Summary Completed 09/09/2018 Patient Education: Patient Medication Summary Completed 09/06/2018 Patient Education: Cholesterol Management Completed 09/06/2018 Care Plan: Comp Metabolic Pending 09/06/2018 Care Plan: Cbc With Differential Pending 09/06/2018 Care Plan: %Hba1C LOINC : 12076-2 Pending 09/06/2018 Care Plan: Tsh Pending 09/06/2018 Care Plan: Lipid Pending 09/06/2018 Appointment: Marcela Oshea WPtel: [phone] [phone] [place] (15 min) Moderate 08/26/2018 Appointment: Marcela Oshea WPtel: [phone] [phone] [place] (15 min) Moderate 08/23/2018 Visit [...] in clinic. 07/22/2018 Appointment: [facility] [phone] [facility] [place] (15 min) Moderate 07/22/2018 Patient [...] insomnia. 07/16/2018 Appointment: Marcela Oshea WPtel: [phone] [phone] (30 min) Complex 07/16/2018 Patient Education: Patient Medication Summary Completed 07/16/2018 Visit Plan: cough - improved - notify clinic if symptoms do not completely resolve, or with any questions or concerns. 07/01/2018 Appointment: [facility] [phone] [facility] (15 min) Moderate 07/01/2018 Patient Education: [...] spray. 06/28/2018 Appointment: Madeline Kennedy WPtel: [phone] [facility] (15 min) Moderate 06/28/2018 Patient Education: Patient Medication Summary Completed 06/28/2018 Patient Education: Patient Medication Summary Completed 06/21/2018 Care Plan: Annabel RICKS [place] Pending 06/21/2018 Visit Plan: Diabetes Mellitus - [...] home. 06/18/2018 Appointment: Melida Ha WPtel: [phone] [facility] (15 min) Moderate 06/18/2018 Patient Education: [...] swelling improves. 06/04/2018 Appointment: Melida Ha WPtel: [facility] (15 min) Moderate 06/04/2018 Patient Education: [...] allow for greater blood glucose control. Joint xxpl-kxxstfku-xxreefj- symptoms have improved -stop meloxicam due to upset stomach-call if symptoms return 05/13/2018 Appointment: Marcela Oshea WPtel: [phone] (30 min) Complex 05/13/2018 Patient Education: Patient Medication Summary Completed 05/13/2018 Visit Plan: Bilateral hip ldbc-qhqynouk-ubwdipg IM injection administered today for c/o continued myalgia/arthralgia. Patient to start taking Meloxicam 15mg PO daily. Advised to return to clinic if symptoms do not improve. 05/02/2018 Appointment: Marcela Oshea WPtel: [phone] (30 min) Complex 05/02/2018 Patient Education: [...] readings at home. Diabetes Mellitus -check labs Utihaaag-eaucyrh-wrhy bite-rx for doxycycline-follow up in 2 weeks 04/29/2018 Appointment: Marcela Oshea WPtel: [phone] [phone] (15 min) Moderate 04/29/2018 Patient Education: Patient Medication Summary Completed 04/29/2018 Appointment: [facility]el[phone] [facility] (15 min) Moderate 04/15/2018 Appointment: Marcela Oshea WPtel: [phone] (30 min) Complex 03/21/2018 Visit Plan: [...] on cymbalta 03/13/2018 Appointment: Melida Ha WPtel: [facility] (30 min) Complex 03/13/2018 Patient Education: Patient Medication Summary Completed 03/13/2018 Visit Plan: DM-continue same medications-monitor blood sugars routinely as directed -rx for new glucometer and test strips provided Bipolar-currently depressed-patient start on vraylar-follow up in 2 weeks, sooner if needed. Patient and verbalied understanding of plan. Hypotension- stay off losartan 03/07/2018 Appointment: Marcela Oshea WPtel: [phone] [place] (30 min) Complex 03/07/2018 Patient Education: Patient Medication Summary Completed 03/07/2018 Appointment: Melida Ha WPtel: [facility] (15 min) Moderate 03/04/2018 Visit Plan: [...] patient. 02/28/2018 Appointment: Marcela Oshea WPtel: [phone] [phone] (30 min) Complex 02/28/2018 Patient Education: [...] improving. 02/13/2018 Appointment: Madeline Kennedy WPtel: [phone] [facility] (15 min) Moderate 02/13/2018 Patient Education: Patient Medication Summary Completed 02/13/2018 Referral: Sun Glynn Patient informed. Referral info faxed. Completed Visit Plan: DM-weight loss-not checking blood sugars- patient sent for labs today HTN-low xcztv-osvrfxy-lcthd labs Callus of foot and fissue of heel-refer to Dr Glynn for evaluation Esophageal Reflux - the patient has been counseled against excessive intake of caffeine, spicy foods, peppermint , and cinnamon - all of which can exacerbate esophageal reflux. The patient is to take medications as prescribed and call the office if the symptoms are not improving. 01/29/2018 Appointment: Marcela Oshea WPtel: [address] [place], [place] [phone] (30 min) Complex 01/29/2018 Patient Education: Patient Medication Summary Completed 01/29/2018 Care Plan: Comp Metabolic Cancelled 01/29/2018 Care Plan: Cbc With Differential Cancelled 01/29/2018 Care Plan: %Hba1C LOINC : 34424-2 Cancelled 01/29/2018 Care Plan: Referral Order SNOMED-CT : [id number] Cancelled 01/29/2018 Visit Plan: Fatigue, malaise, joint [...] or concerns. 08/27/2017 Appointment: Madeline Kennedy WPtel: [address] [place], [place] [phone] (15 min) Moderate 08/27/2017 Patient Education: Patient [...] today - 08/16/2017 Appointment: Melida Ha WPtel: [facility] (30 min) Complex 08/16/2017 Patient Education: Patient Medication Summary Completed 08/16/2017 Patient Education: Obesity Completed 08/16/2017 Appointment: Madeline Kennedy WPtel: [facility] (30 min) Complex 08/07/2017 Visit Plan: [...] considered contagious. 07/26/2017 Appointment: Madeline Kennedy WPtel: [facility] (15 min) Moderate 07/26/2017 Patient Education: Patient Medication Summary Completed 07/26/2017 Visit Plan: Cellulitis right foot-cultured today in the office-home health to reapply wound vac--appt with wound care on to evaluate for debridement- 07/03/2017 Appointment: Marcela Oshea WPtel: [phone] (30 min) Complex 07/03/2017 Patient Education: Patient Medication Summary Completed 07/03/2017 Visit Plan: Abrasion left arm - Pt was instructed to keep the wound clean, wash with antibacterial soap, use triple antibiotic ointment, call if redness, pustular drainage, or any other acute concerns. 06/29/2017 Appointment: Marcela Oshea WPtel: [facility]5 [phone] (15 min) Moderate 06/29/2017 Patient Education: [...] of plan. 06/18/2017 Appointment: Marcela Oshea WPtel: [address] [place], [place] [phone] (15 min) Moderate 06/18/2017 Patient Education: Patient [...] prilosec 06/07/2017 Appointment: Marcela Oshea WPtel: [address] [place], [place] [phone] (10 min) Simple 06/07/2017 Patient Education: Patient [...] bite-continue doxycycline 05/17/2017 Appointment: Marcela Oshea WPtel: [facility]3 [phone] (30 min) Complex 05/17/2017 Patient Education: [...] [facility]. 05/04/2017 Appointment: Marcela Oshea WPtel: [facility]5 [facility] [place] [address] (30 min) Complex 05/04/2017 Patient Education: Patient [...] home. Cough-resolved 03/15/2017 Appointment: Marcela Oshea WPtel: [address] [place], [place] [phone] (15 min) Moderate 03/15/2017 Patient Education: Patient Medication Summary Completed 03/15/2017 Appointment: Marcela Oshea WPtel: [address] [place], [place] [phone] (30 min) Complex 03/12/2017 Visit Plan: Feng [...] as discussed 02/16/2017 Appointment: Marcela Oshea WPtel: [phone] [phone] (15 min) Moderate 02/16/2017 Patient Education: [...] controlled. 02/12/2017 Appointment: Marcela Oshea WPtel: [phone] [phone] (30 min) Complex 02/12/2017 Patient Education: Patient Medication Summary Completed 02/12/2017 Appointment: Marcela Oshea WPtel: [phone] [phone] (30 min) Complex 02/06/2017 Visit Plan: [...] consider 02/05/2017 [facility]ment[phone] (30 min) Complex 02/05/2017 Patient Education: Patient Medication Summary Completed 02/05/2017 Appointment: Marcela Oshea WPtel: [phone] [phone] (30 min) Complex 01/30/2017 Visit Plan: Acute confusion-uncontrolled diabetes- chronically noncompliant with treatment and stopped his insulin several months ago-r/o stroke vs DKA-Dr Ha in to evaluate patient-plan to admit for further work up and treatment-patient's called and she transported him to the hospital 01/29/2017 Appointment: Marcela Oshea WPtel: [phone] [phone] [place] (30 min) Complex 01/29/2017 Patient Education: Patient Medication Summary Completed 01/29/2017 Patient Education: Obesity Completed 01/29/2017 Visit Plan: Right foot pain-MRI shows foreign body-appt with Dr Grewal for evaluation on Sunday. 10/13/2016 Appointment: Marcela Oshea WPtel: [phone] [phone] [place] (15 min) Moderate 10/13/2016 Patient Education: Patient Medication Summary Completed 10/13/2016 Appointment: Marcela Oshea WPtel: [phone] [phone] [place] (30 min) Complex 10/12/2016 Visit Plan: Right foot qkbu-rrkqabmh-kmvrn washer dropped on foot-xray negative but pain continues to increase-recommend MRI of foot for further evaluation-refer to wound care for lesions on right foot, patient has diabetes and history of osteomyelitis-culture obtained today-continue oral abx- follow up in the office on , sooner if needed 10/09/2016 Visit Plan: Right foot nazx-arltxera-bqrpc washer dropped on foot-xray negative but pain continues to increase-recommend MRI of foot for further evaluation-refer to wound care for lesions on right foot, patient has diabetes and history of osteomyelitis-culture obtained today-continue oral abx- follow up in the office on , sooner if needed 10/09/2016 Visit Plan: Right foot lpyx-riduzhhl-bcbba washer dropped on foot-xray negative but pain continues to increase-recommend MRI of foot for further evaluation-refer to wound care for lesions on right foot, patient has diabetes and history of osteomyelitis-culture obtained today-continue oral abx- follow up in the office on , sooner if needed 10/09/2016 Appointment: Marcela Oshea WPtel: [phone] [facility] [place] [address] (30 min) Complex 10/09/2016 Patient Education: Patient Medication Summary Completed 10/09/2016 Visit Plan: Cellulitis - continue with oral antibiotics as previously directed, return to clinic as previously directed, call for acute change in symptoms, worsening redness, warmth, discharge. 10/06/2016 Appointment: Marcela Oshea WPtel: [facility]7 [facility] [place] [address] (10 min) Simple 10/06/2016 Patient Education: Patient Medication Summary Completed 10/06/2016 Appointment: Marcela Oshea WPtel: [facility]2 [facility] [place] [address] (30 min) Complex 08/24/2016 Referral: Sun Glynn Referral Completed 07/21/2016 Visit Plan: Low back pain- history of spinal fusion- patient for xray lumbar spine-RX sent to [facility] pharmacy and instructed on use-topical voltaren samples provided and instructed on use. Ok to use tylenol as needed as well. The patient is to call the office if the pain is worsening or does not improve. Pressure ulcer left 4th toe-refer to Dr Glynn for evaluation 07/18/2016 Appointment: Marcela Oshea WPtel: [facility] [place] [address] (30 min) Complex 07/18/2016 Patient Education: Patient Medication Summary Completed 07/18/2016 Patient Education: Obesity Completed 07/18/2016 Care Plan: Referral Order SNOMED-CT : [id number] Cancelled 07/18/2016 Visit Plan: Diabetes Mellitus - [...] glucose control. 06/22/2016 Appointment: Marcela Oshea WPtel: [facility]4 [phone] (30 min) Complex 06/22/2016 Patient Education: [...] today 05/23/2016 Appointment: [phone] (30 min) Complex 05/23/2016 Patient Education: [...] of plan. 05/15/2016 Appointment: Marcela Oshea WPtel: [phone] [place] (15 min) Moderate 05/15/2016 Patient [...] into [facility]. . Abrasion left arm - Pt was [...] for fracture from injury . Right foot leev-riqphvcz-urthg washer dropped on foot-xray negative but pain [...] for fracture from injury . Right foot iouh-fgdcafqc-ptcqn washer dropped on foot-xray negative but pain [...] for fracture from injury . Right foot jrij-fggawhra-ozfyh washer dropped on foot-xray negative but pain continues to increase-recommend MRI of foot for further evaluation-refer to wound care for lesions on right foot, patient has diabetes and history of osteomyelitis-culture obtained today-continue oral abx-follow up in the office on , sooner if needed . Bilateral hip jouf-keykbnla-rtdojhy IM injection administered today for c/o continued myalgia/arthralgia. Patient to start taking Meloxicam 15mg PO daily. Advised to return to clinic if symptoms do not improve. . DM-weight loss-not checking blood sugars-patient sent for labs today HTN-low xiywj-ryukjqd-naeid labs Callus of foot and fissue of [...] readings are starting to become less controlled. Oklkfneym-ibwlwrpt-hzphzpzs to monitor Generalized weakness-refer for PT-patient refuses [...] allow for greater blood glucose control. Joint phrc-ibtfgmzb-rmluwle-symptoms have improved -stop meloxicam due to upset [...] 5pm. Daytime napping worsens night time insomnia. DOXYCYCLINE 100MG TWICE DAILY TORADOL INJECTION STOP [...] readings at home. Diabetes Mellitus -check labs Qgbnmipi-cnztzuu-abcc bite-rx for doxycycline-follow up in 2 weeks [...] with any changes, questions, or concerns. . Shingles - Herpes Zoster - acute [...] do not show improvement. 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 Low back pain- history of spinal fusion-patient for xray lumbar spine-RX sent to [facility] pharmacy and instructed on use-topical voltaren samples provided and instructed on use. Ok to use tylenol as needed as well. The patient is to call the office if the pain is worsening or does not improve. Pressure ulcer left 4th toe-refer to Dr Glynn for evaluation . Diabetes Mellitus - I [...] not improve or if they worsen. . Cellulitis - continue with oral antibiotics as previously directed, return to clinic as previously directed, call for acute change in symptoms, worsening redness, warmth, discharge. INCREASE FLUIDS-RECOMMEND G2 GATORADE-CHECK LABS TODAY IF [...]
--- OUTSIDE RECORDS SUMMARY | 2019-01-01 15:20 | XMS REPORT | CCD ---
Author Author Madeline Kennedy MD, [facility] Address [address] [place] [address] Phone Care Team Providers Care Instrumentation Tech Name Role Phone PP Unavailable CCM Unavailable Summary Purpose Interface Exchange Insurance Providers Payer name Policy type / Coverage type Covered democrat ID Effective Begin Date Effective End Date Blue Cross Blue Shield [facility] Blue Cross/Blue Shield [id number] 2016 Unknown Family history Father Diagnosis Age At Onset Hyperlipidemia Unknown Heart Attack Unknown Mother Diagnosis Age At Onset Hypertension Unknown Social History Social History Element Codes Description Effective Dates Marital status Unknown Mignon 01/20/2016 Number of children Unknown 4 01/20/2016 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/[address]: 014365208 Never smoker 01/20/[address]: 069111527 Never drinks alcohol 01/20/2016 Allergies, Adverse Reactions, [...] Instructions doxycycline hyclate 100 mg tablet RxNorm: 6355503 1 Tablet(s) PO BID 10/21/2018 10/27/2018 Active ketorolac 60 mg/2 mL intramuscular solution RxNorm: 4668321 Milliliter(s) IM 10/21/2018 10/21/2018 Inactive Levaquin 500 mg tablet RxNorm: 672648 1 Tablet(s) PO daily 10/23/2018 Active albuterol sulfate 2.5 mg/3 mL (0.083 %) solution for nebulization RxNorm: 782707 3 Milliliter(s) INH UD 10/14/2018 No Stop Date Active Tessalon Perles 100 mg capsule RxNorm: 968112 1-2 Capsule(s) PO TID PRN 10/14/2018 No Stop Date Active Levaquin 500 mg tablet RxNorm: 428772 1 Tablet(s) PO daily 08/201810/16/2018 Inactive Coreg 6.25 mg tablet RxNorm: 160213 TAKE ONE TABLET BY MOUTH TWICE A DAY 09/30/2018 03/28/2019 Active albuterol sulfate 2.5 mg/3 mL (0.083 %) solution for nebulization RxNorm: 459537 3 Milliliter(s) INH UD 09/30/201807/2018 Inactive Kenalog 40 mg/mL suspension for injection RxNorm: 6939661 1.5 Milliliter(s) Inj 09/30/2018 09/30/2018 Inactive Keflex 500 mg capsule RxNorm: 158392 1 Capsule(s) PO TID 201710/03/2018 Inactive prednisone 20 mg tablet RxNorm: 711663 2 Tablet(s) PO daily 09/29/2018 Inactive Kenalog 40 mg/mL suspension for injection RxNorm: 2723562 Milliliter(s) Inj 09/11/2018 09/11/2018 Inactive Zyrtec 10 mg tablet RxNorm: 2499830 1 Tablet(s) PO daily 09/0910/08/2018 Inactive Keflex 500 mg capsule RxNorm: 780588 1 Capsule(s) PO TID 201709/15/2018 Inactive Tresiba FlexTouch U-200 insulin 200 unit/mL (3 mL) subcutaneous pen RxNorm: 8151470 50 Unit(s) SQ daily 08/30/2018 08/29/2018 Inactive please give him 30 day supply Tresiba FlexTouch U-200 insulin 200 unit/mL (3 mL) subcutaneous pen RxNorm: 8315066 50 Unit(s) SQ daily 08/30/2018 09/28/2018 Inactive please give him 30 day supply Novolog Flexpen U-100 Insulin aspart 100 unit/mL subcutaneous RxNorm: 6673339 8 Unit(s) SQ AC 08/13/2018 No Stop Date Active Novolog Flexpen U-100 Insulin aspart 100 unit/mL subcutaneous RxNorm: 7402513 8 Unit(s) SQ AC 07/22/20182017 Inactive this is an update on his medication Novolog Flexpen U-100 Insulin aspart 100 unit/mL subcutaneous RxNorm: 7333047 12 Unit(s) SQ AC 07/05/20182017 Inactive this is an update on his medication Toujeo SoloStar U-300 Insulin 300 unit/mL (1.5 mL) subcutaneous pen RxNorm: 6955220 INJECT 50 UNITS UNDER THE SKIN DAILY 07/01/2018 08/29/2018 Inactive Mucinex 600 mg tablet, extended release RxNorm: 103100 1 Tablet(s) PO BID 06/28/2018 07/04/2018 Inactive Zofran 4 mg tablet RxNorm: 280355 1 Tablet(s) PO TID as needed nausea 06/28/2018 07/02/2018 Inactive Kenalog 40 mg/mL suspension for injection RxNorm: 0937995 Milliliter(s) Inj 06/28/2018 06/28/2018 Inactive Flonase Allergy Relief 50 mcg/actuation nasal spray, suspension RxNorm: 5409519 1 [place] NASAL BID 06/28/20182017 Inactive Lyrica 50 mg capsule RxNorm: 069024 Capsule(s) PO daily 201707/07/2018 Inactive Novolog Flexpen U-100 Insulin aspart 100 unit/mL subcutaneous RxNorm: 7031985 10 Unit(s) SQ AC 06/18/20182017 Inactive this is an update on his medication Lasix 20 mg tablet RxNorm: 191311 1 Tablet(s) PO BIW 201707/02/2018 Inactive atorvastatin 80 mg tablet RxNorm: 081654 1 Tablet(s) PO QHS 04/201812/06/2018 Active clonazepam 1 mg tablet RxNorm: 595673 2 Tablet(s) PO HS 201706/04/2019 Active clonazepam 1 mg tablet RxNorm: 397418 2 Tablet(s) PO HS as needed 06/10/2018 06/09/2018 Inactive Lyrica 50 mg capsule RxNorm: 107207 Capsule(s) PO daily 201707/08/2018 Inactive Lasix 20 mg tablet RxNorm: 1 Tablet(s) PO TIW 201706/11/2018 Inactive Toujeo SoloStar U-300 Insulin 300 unit/mL (1.5 mL) subcutaneous pen RxNorm: 3523368 50 Unit(s) SQ daily 05/07/2018 06/30/2018 Inactive meloxicam 15 mg tablet RxNorm: 885097 15 Milligram(s) PO daily 05/02/2018 05/12/2018 Inactive ketorolac 30 mg/mL injection solution RxNorm: 611176 2 Milliliter(s) Inj 05/02/2018 05/02/2018 Inactive Toujeo SoloStar U-300 Insulin 300 unit/mL (1.5 mL) subcutaneous pen RxNorm: 9543074 45 Unit(s) daily 04/29/2018 Inactive clonazepam 1 mg tablet RxNorm: 532755 1 Tablet(s) PO Q8 as needed 04/29/2018 06/09/2018 Inactive doxycycline hyclate 100 mg tablet RxNorm: 1587250 1 Tablet(s) PO BID 04/29/2018 05/12/2018 Inactive Cymbalta 30 mg capsule,delayed release RxNorm: 288587 1 Capsule(s) PO QAM 03/13/2018 10/08/2018 Inactive Lexapro 10 mg tablet RxNorm: 571272 1 Tablet(s) PO QPM 201703/03/2018 Inactive Toujeo SoloStar U-300 Insulin 300 unit/mL (1.5 mL) subcutaneous pen RxNorm: 9007180 20 Unit(s) daily 02/28/2018 Inactive Protonix 40 mg tablet,delayed release RxNorm: 482715 1 Tablet(s) PO daily 01/29/2018 06/09/2018 Inactive clonazepam 1 mg tablet RxNorm: 734724 1 Tablet(s) PO Q8 as needed 12/12/2017 03/10/2018 Inactive Tamiflu 75 mg capsule RxNorm: 177221 1 Capsule(s) PO BID 201712/03/2017 Inactive doxycycline hyclate 100 mg capsule RxNorm: 3693799 1 Capsule(s) PO BID 09/07/2017 09/20/2017 Inactive doxycycline hyclate 100 mg capsule RxNorm: 7443403 1 Capsule(s) PO BID 08/27/2017 09/06/2017 Inactive prednisone 20 mg tablet RxNorm: 628070 2 Tablet(s) PO daily 08/31/2017 Inactive clopidogrel 75 mg tablet RxNorm: 395622 1 Tablet(s) PO daily 06/09/2018 Inactive atorvastatin 40 mg tablet RxNorm: 018510 1 Tablet(s) PO QHS 02/27/2018 Inactive losartan 25 mg tablet RxNorm: 496321 TAKE ONE TABLET BY MOUTH DAILY 08/22/2017 06/09/2018 Inactive Toujeo SoloStar 300 unit/mL (1.5 mL) subcutaneous insulin pen RxNorm: 0714072 45 Unit(s) daily 08/17/2017 08/20/2017 Inactive mupirocin 2 % topical ointment RxNorm: 975931 1 Application TOP TID to the lesions on chest 08/16/2017 08/25/2017 Inactive Toujeo SoloStar 300 unit/mL (1.5 mL) subcutaneous insulin pen RxNorm: 8247582 40 Unit(s) daily 08/16/2017 08/16/2017 Inactive valacyclovir 1 gram tablet RxNorm: 140954 1 Tablet(s) PO TID 08/01/2017 Inactive clonazepam 1 mg tablet RxNorm: 540020 1 Tablet(s) PO Q8 as needed 07/03/2017 09/30/2017 Inactive Levaquin 500 mg tablet RxNorm: 921224 1 Tablet(s) PO daily 06/25/2017 Inactive Levaquin 500 mg tablet RxNorm: 433502 1 Tablet(s) PO daily 06/21/2017 Inactive losartan 25 mg tablet RxNorm: 605047 1 Tablet(s) PO daily 201608/16/2017 Inactive nystatin 100,000 unit/mL oral suspension RxNorm: 514345 5 Milliliter(s) PO QID Swish et swallow 06/18/2017 06/17/2017 Inactive nystatin 100,000 unit/mL oral suspension RxNorm: 202243 5 Milliliter(s) PO QID Swish et swallow 06/18/2017 06/27/2017 Inactive Cipro 500 mg tablet RxNorm: 719586 1 Tablet(s) PO BID 201606/18/2017 Inactive Cipro 500 mg tablet RxNorm: 942168 1 Tablet(s) PO BID 201606/11/2017 Inactive Toujeo SoloStar 300 unit/mL (1.5 mL) subcutaneous insulin pen RxNorm: 0753983 INJECT 10 UNITS UNDER THE SKIN DAILY 06/12/2017 08/15/2017 Inactive Keflex 500 mg capsule RxNorm: 721519 1 Capsule(s) PO TID 201606/13/2017 Inactive doxycycline hyclate 100 mg capsule RxNorm: 5989716 1 Capsule(s) PO BID 05/17/2017 05/21/2017 Inactive doxycycline hyclate 100 mg capsule RxNorm: 2263058 1 Capsule(s) PO BID 05/11/2017 05/16/2017 Inactive losartan 25 mg tablet RxNorm: 942349 1 Tablet(s) PO daily 201606/17/2017 Inactive atorvastatin 40 mg tablet RxNorm: 890926 1 Tablet(s) PO daily 03/01/2017 08/23/2017 Inactive clopidogrel 75 mg tablet RxNorm: 639662 1 Tablet(s) PO daily 08/23/2017 Inactive Flonase Allergy Relief 50 mcg/actuation nasal spray, suspension RxNorm: 1018851 2 [place] NASAL daily 02/16/20172016 Inactive Augmentin 875 mg-125 mg tablet RxNorm: 789843 1 Tablet(s) PO BID 02/16/2017 02/22/2017 Inactive GET PROBIOTIC TO TAKE WHILE ON ABX Tamiflu 75 mg capsule RxNorm: 508084 1 Capsule(s) PO BID 201602/20/2017 Inactive ceftriaxone 500 mg solution for injection RxNorm: 0810875 1 Milliliter(s) Inj 02/16/2017 02/16/2017 Inactive Kenalog 40 mg/mL suspension for injection RxNorm: 0498636 1 Milliliter(s) Inj 02/16/2017 02/16/2017 Inactive Toujeo SoloStar 300 unit/mL (1.5 mL) subcutaneous insulin pen RxNorm: 6860197 25 Unit(s) SQ QAM 02/12/2017 06/10/2017 Inactive Toujeo SoloStar 300 unit/mL (1.5 mL) subcutaneous insulin pen RxNorm: 2243619 10 Unit(s) SQ QAM 02/05/2017 02/11/2017 Inactive lisinopril 10 mg tablet RxNorm: 605251 1 Tablet(s) PO daily 02/28/2017 Inactive atorvastatin 40 mg tablet RxNorm: 703761 1 Tablet(s) PO daily 02/01/2017 02/28/2017 Inactive doxycycline hyclate 100 mg capsule RxNorm: 0293448 1 Capsule(s) PO BID 02/01/2017 02/10/2017 Inactive clonazepam 1 mg tablet RxNorm: 135876 1 Tablet(s) PO Q8 as needed 10/09/2016 01/05/2017 Inactive ceftriaxone 1 gram solution for injection RxNorm: 0805626 Inj 10/06/2016 10/06/2016 Inactive cyclobenzaprine 10 mg tablet RxNorm: 878230 1/2-1 Tablet(s) PO TID PRN 07/18/2016 01/28/2017 Inactive clonazepam 1 mg tablet RxNorm: 712336 1 Tablet(s) PO Q8 as needed 05/31/2016 05/29/2016 Inactive clonazepam 1 mg tablet RxNorm: 876480 1 Tablet(s) PO Q8 as needed 05/31/2016 08/28/2016 Inactive Toujeo SoloStar 300 unit/mL (1.5 mL) subcutaneous insulin pen RxNorm: 0867264 10 Unit(s) SQ daily 05/23/2016 01/28/2017 Inactive Crestor 10 mg tablet RxNorm: 048084 1 Tablet(s) PO QHS 201501/28/2017 Inactive Crestor 10 mg tablet RxNorm: 740307 1 Tablet(s) PO QHS 201505/18/2016 Inactive clonazepam 1 mg tablet RxNorm: 072735 1 Tablet(s) PO Q8 as needed 04/25/2016 05/30/2016 Inactive prednisone 20 mg tablet RxNorm: 980651 3 Tablet(s) PO daily 06/201602/10/2016 Inactive prednisone 20 mg tablet RxNorm: 490923 3 Tablet(s) PO daily 06/201605/14/2016 Inactive Kenalog 40 mg/mL suspension for injection RxNorm: 9256756 Milliliter(s) Inj 01/20/2016 01/20/2016 Inactive aspirin 81 mg tablet,delayed release RxNorm: 591479 1 Tablet(s) PO daily No Start Date Active Brilinta 90 mg tablet RxNorm: 2417521 1 Tablet(s) PO BID No Start Date Active valsartan 80 mg tablet RxNorm: 827823 1 Tablet(s) PO daily No Start Date Active acetaminophen 500 mg tablet RxNorm: 261249 1-2 Tablet(s) PO as needed No Start Date Active clopidogrel 75 mg tablet RxNorm: 009880 1 Tablet(s) PO daily No Start Date 02/28/2017 Inactive Novolog Flexpen U-100 Insulin aspart 100 unit/mL subcutaneous RxNorm: 2099813 5 units with breakfast lunch and 10 supper Unit(s) SQ No Start Date 06/17/2018 Inactive clonazepam 1 mg tablet RxNorm: 386045 1 Tablet(s) PO QHS No Start Date 04/24/2016 Inactive Coreg 6.25 mg tablet RxNorm: 105373 1 Tablet(s) PO BID No Start Date 09/29/2018 Inactive acyclovir 400 mg tablet RxNorm: 618233 2 Tablet(s) PO 5x daily No Start Date 02/28/2017 Inactive Lyrica 50 mg capsule RxNorm: 856443 Capsule(s) PO BID No Start Date 06/09/2018 Inactive Vraylar 3 mg capsule RxNorm: 0494457 1 Capsule(s) PO daily No Start Date 03/12/2018 Inactive Medication Administered Medication Codes Instructions Start Date Status ketorolac 60 mg/2 mL intramuscular solution RxNorm: 0524021 Milliliter 10/21/2018 Active Kenalog 40 mg/mL suspension for injection RxNorm: 4749776 1.5Milliliter 09/30/2018 No longer Active Kenalog 40 mg/mL suspension for injection RxNorm: 7927513 Milliliter 09/11/2018 No longer Active Kenalog 40 mg/mL suspension for injection RxNorm: 6185542 Milliliter 06/28/2018 No longer Active ketorolac 30 mg/mL injection solution RxNorm: 401155 2Milliliter 05/02/2018 No longer Active ceftriaxone 500 mg solution for injection RxNorm: 2501451 1Milliliter 02/16/2017 No longer Active Kenalog 40 mg/mL suspension for injection RxNorm: 3738058 1Milliliter 02/16/2017 No longer Active ceftriaxone 1 gram solution for injection RxNorm: 2733496 10/06/2016 No longer Active Kenalog 40 mg/mL suspension for injection RxNorm: 9261013 Milliliter 01/20/2016 No longer Active Immunizations Vaccine [...] Item Item Code Result Date Culture Sputum 350618 LOWER RESPIRATORY TRACT CULTURE SEE NOTES 10/16/2018 LIPID GRP [id number] CHOLESTEROL TNP:Duplicate Order 09/10/2018 LIPID GRP Triglyceride TNP:Duplicate Order 2017 LIPID GRP 7549617 HDL CHOLESTEROL TNP:Duplicate Order 2017 LIPID GRP Chol/HDL Ratio TNP:Duplicate Order 2017 LIPID GRP LDL Cholesterol TNP:Duplicate Order 2017 A1C HPLC 5902475 Hgb A1c 74130-0 TNP:Duplicate Order 2017 C Diff An [id number] GDH TNP:Lab Request 06/22/2018 C Diff An [id number] Toxin A/B TNP:Lab Request 06/22/2018 C Diff An [id number] C Diff Analyzer TNP:Lab Request 2017 C Diff An [id number] IC OK? TNP:Lab Request 06/22/2018 CBC 7981230 WBC 6.4 10e9/L 05/02/2018 CBC 9593250 RBC 5.60 10e12/L 05/02/2018 CBC 4029173 HEMOGLOBIN 17.0 g/dL 05/02/2018 CBC 1179509 HEMATOCRIT 48.0 % 05/02/2018 CBC 8438659 MCV 85.7 fL 05/02/2018 CBC 3964921 MCH 30.4 pg 05/02/2018 CBC 2184099 MCHC 35.4 g/dL 05/02/2018 CBC 7639063 PLATELET COUNT 166 10e9/L 05/02/2018 CBC 7687204 Mean Plt Volume 11.6 fL 05/02/2018 CBC 2999452 Neut Auto 48.6 % 05/02/2018 CBC 8371306 Lymph Auto 41.7 % 05/02/2018 CBC 4030823 [place] Auto 8.1 % 05/02/2018 CBC 9500408 RDW 13.1 % 05/02/2018 CBC 0468189 Eos Auto 1.1 % 05/02/2018 CBC 2001864 Baso Auto 0.5 % 05/02/2018 CBC 4351991 Neutrophil Abs 3.11 10e9/L 05/02/2018 CBC 0528565 Lymphocyte Abs 2.67 10e9/L 05/02/2018 CBC 1842517 Monocyte Abs 0.52 10e9/L 05/02/2018 CBC 4414072 Eosinophil Abs 0.07 10e9/L 05/02/2018 CBC 4844454 RDW-SD 40.0 fL 05/02/2018 CBC 8669237 Basophil Abs 0.03 10e9/L 05/02/2018 CHEM 14 4747885 AST 17 U/L 05/02/2018 CHEM 14 8098711 ALT 17 U/L 05/02/2018 CHEM 14 8604337 BUN 17 mg/dL 05/02/2018 CHEM 14 3755194 ALBUMIN 4.0 g/dL 05/02/2018 CHEM 14 2192903 CHLORIDE 97 mmol/L 05/02/2018 CHEM 14 2060746 Bili Total 0.9 mg/dL 05/02/2018 CHEM 14 0773054 ALK PHOS 67 U/L 05/02/2018 CHEM 14 4076219 SODIUM 135 mmol/L 05/02/2018 CHEM 14 7001280 CREATININE 1.18 mg/dL 05/02/2018 CHEM 14 9916515 CALCIUM 9.4 mg/dL 05/02/2018 CHEM 14 7396522 POTASSIUM 4.4 mmol/L 05/02/2018 CHEM 14 2074116 TOTAL PROTEIN 6.9 g/dL 05/02/2018 CHEM 14 3158813 GLUCOSE 316 mg/dL 05/02/2018 CHEM 14 0183368 Bicarbonate 29 mmol/L 05/02/2018 CHEM 14 4726044 AGAP 9 mmol/L 05/02/2018 MEAN GLUC 6091427 Calc Mean Gluc 283 mg/dL 05/02/2018 A1C HPLC 0807725 Hgb A1c 84970-7 11.5 % 05/02/2018 GFR CALC 2965901 GFR Non Afr Amr >60 mL/min 05/02/2018 GFR CALC 3004509 GFR Afr Amr >60 mL/min 05/02/2018 JI Gold 0331325 JIC Gold Complete 02/28/2018 GFR CALC 9901400 GFR Non Afr Amr >60 mL/min 02/28/2018 GFR CALC 9731661 GFR Afr Amr >60 mL/min 02/28/2018 UA W/CII 8120892 UA Urine Appear Normal 02/28/2018 UA W/CII 6770949 UA Protein 1+ 02/28/2018 UA W/CII 3886959 UA Hemoglobin Negative 02/28/2018 UA W/CII 8193676 UA Glucose 4+ 02/28/2018 UA W/CII 8994236 UA Ketones Trace 02/28/2018 UA W/CII 6405936 UA pH 5.5 02/28/2018 UA W/CII 1159724 U Spec [place] 1.015 02/28/2018 UA W/CII 3693471 UA Bilirubin Negative 02/28/2018 UA W/CII 3325140 UA Nitrite NEG 02/28/2018 UA W/CII 3080558 UA Leuk Esteras Negative 02/28/2018 MICR 3907322 UA WBC/hpf 1 02/28/2018 MICR 6459546 UA RBC hpf 2 02/28/2018 MICR 1525690 UA WBC auto 3.8 /uL 02/28/2018 MICR 8784614 UA RBC auto 12.2 /uL 02/28/2018 MICR 4288652 UA SQ EPI auto 2.3 /uL 02/28/2018 MICR 1864313 UA H Cast auto 0.10 /uL 02/28/2018 CBC 6105954 WBC 6.4 10e9/L 02/28/2018 CBC 8879133 RBC 5.51 10e12/L 02/28/2018 CBC 1711027 HEMOGLOBIN 16.7 g/dL 02/28/2018 CBC 6976023 HEMATOCRIT 46.9 % 02/28/2018 CBC 3098149 MCV 85.1 fL 02/28/2018 CBC 4785536 MCH 30.3 pg 02/28/2018 CBC 4819326 MCHC 35.6 g/dL 02/28/2018 CBC 2779502 PLATELET COUNT 173 10e9/L 02/28/2018 CBC 0623828 Mean Plt Volume 11.6 fL 02/28/2018 CBC 0589769 Neut Auto 51.8 % 02/28/2018 CBC 1668265 Lymph Auto 39.9 % 02/28/2018 CBC 1109686 [place] Auto 7.3 % 02/28/2018 CBC 9320238 Eos Auto 0.8 % 02/28/2018 CBC 3516335 RDW 13.3 % 02/28/2018 CBC 0918593 Baso Auto 0.2 % 02/28/2018 CBC 8546841 Neutrophil Abs 3.32 10e9/L 02/28/2018 CBC 7873497 Lymphocyte Abs 2.55 10e9/L 02/28/2018 CBC 1033156 Monocyte Abs 0.47 10e9/L 02/28/2018 CBC 7247761 Eosinophil Abs 0.05 10e9/L 02/28/2018 CBC 6540958 Basophil Abs 0.01 10e9/L 02/28/2018 CBC 3585697 RDW-SD 40.8 fL 02/28/2018 CHEM 14 8134596 AST 17 U/L 02/28/2018 CHEM 14 3241792 ALT 17 U/L 02/28/2018 CHEM 14 6311397 BUN 20 mg/dL 02/28/2018 CHEM 14 8025203 ALBUMIN 4.1 g/dL 02/28/2018 CHEM 14 3436031 CHLORIDE 97 mmol/L 02/28/2018 CHEM 14 9188384 Bili Total 1.3 mg/dL 02/28/2018 CHEM 14 0059251 ALK PHOS 78 U/L 02/28/2018 CHEM 14 5811169 SODIUM 135 mmol/L 02/28/2018 CHEM 14 5196791 CREATININE 1.09 mg/dL 02/28/2018 CHEM 14 1367259 CALCIUM 9.6 mg/dL 02/28/2018 CHEM 14 8410165 POTASSIUM 3.8 mmol/L 02/28/2018 CHEM 14 2948395 TOTAL PROTEIN 7.3 g/dL 02/28/2018 CHEM 14 9332144 GLUCOSE 349 mg/dL 02/28/2018 CHEM 14 1785848 Bicarbonate 29 mmol/L 02/28/2018 CHEM 14 9518317 AGAP 9 mmol/L 02/28/2018 [place] Spotted Fever Igg/Igm 181628 FEI MT SPOTTED FEVER IGM EIA . 09/05/2017 [place] Spotted Fever Igg/Igm 810631 RMSF, IGM 0.17 index 09/05/2017 [place] Spotted Fever Igg/Igm 090909 FEI MT SPOTTED FEVER IGG EIA FLEX . 09/05/2017 [place] Spotted Fever Igg/Igm 152475 RMSF, IGG SCREEN-FLEX Positive 09/05/2017 Fei Mtn Spot'D Fev Igg 857074 RMSF, IGG -TITER IFA <1:64 11/2016 Ehrlichia Chaffeensis Antibody Igm 319488 EHRLICHIA CHAFFEENSIS IGM < 1:16 09/03/2017 Ehrlichia Chaffeensis Antibody Igg 814403 EHRLICHIA CHAFFEENSIS IGG <1:64 09/03/2017 Lymes Disease Total Antibodies With Western Blot Reflex B. BURGDORFERI, IGG/IGM 0.223 08/30/2017 Lymes Disease Total Antibodies With Western Blot Reflex C-Reactive Protein Qnt Crqnt CRP 0.00 mg/dl 08/27/2017 Sed Rate Ord21 ESR 8 mm/hr 08/27/2017 Comp Metabolic Mqk967 NA 135 mEq/L 08/16/2017 Comp Metabolic Beo431 K 4.1 mEq/L 08/16/2017 Comp Metabolic Wyi626 CL 98 mEq/L 08/16/2017 Comp Metabolic Guw174 CO2 28.0 mEq/L 08/16/2017 Comp Metabolic Tmu122 ANION GAP 13 08/16/2017 Comp Metabolic Fxd976 GLUCOSE 299 mg/dL 08/16/2017 Comp Metabolic Pyo936 Creat 0.9 mg/dL 08/16/2017 Comp Metabolic Flp913 eGFR 90 ml/min/1.73m2 08/16/2017 Comp Metabolic Slw533 BUN 20 mg/dL 08/16/2017 Comp Metabolic Sxl314 B/C Ratio 21.5 Ratio 08/16/2017 Comp Metabolic Ztb004 CALCIUM 9.2 mg/dL 08/16/2017 Comp Metabolic Cww969 ALK PHOS 84 U/L 08/16/2017 Comp Metabolic Jhi176 AST(SGOT) 19 U/L 08/16/2017 Comp Metabolic Izt412 ALT(SGPT) 24 U/L 08/16/2017 Comp Metabolic Ksv496 BILI T 1.1 mg/dL 08/16/2017 Comp Metabolic Iqi429 ALBUMIN 4.2 g/dL 08/16/2017 Comp Metabolic Byw082 TPRO 7.2 g/dL 08/16/2017 Comp Metabolic Wzi900 GLOB 3.0 g/dL 08/16/2017 Comp Metabolic Vae307 A/G Ratio 1.4 Ratio 08/16/2017 Comp Metabolic Yje754 Osmo 284 mOsmo 08/16/2017 %Hba1C Gkt736 % HbA1c 32036-1 12.5 % 08/16/2017 %Hba1C Raq957 Gluc Ave 312 mg/dL 08/16/2017 Urine Culture Ucult Complete NO Growth Day 2 06/23/2017 Urine Culture Ucult Preliminary NO Growth Day 1 06/23/2017 C RAP A SC [id number] Strep A Negative 06/08/2017 %Hba1C Cqc808 % HbA1c 34714-4 9.5 % 05/04/2017 %Hba1C Plw569 Gluc Ave 226 mg/dL 05/04/2017 Tsh Ord6 [...] 31.7 pg 05/04/2017 Cbc With Differential Ord2 [place]% 8.5 % 05/04/2017 Cbc With Differential Ord2 [...] 2.48 K/ul 05/04/2017 Cbc With Differential Ord2 [place] ABS# 0.5 K/ul 05/04/2017 Cbc With Differential Ord2 Eos ABS# 0.1 K/ul 05/04/2017 Cbc With Differential Ord2 Baso ABS# 0.0 K/ul 05/04/2017 Comp Metabolic Ime299 NA 135 mEq/L 05/04/2017 Comp Metabolic Zwl319 K 4.2 mEq/L 05/04/2017 Comp Metabolic Ezd023 CL 99 mEq/L 05/04/2017 Comp Metabolic Xpn141 CO2 26.0 mEq/L 05/04/2017 Comp Metabolic Lei067 ANION GAP 14 05/04/2017 Comp Metabolic Mfa816 GLUCOSE 277 mg/dL 05/04/2017 Comp Metabolic Xvy947 Creat 0.9 mg/dL 05/04/2017 Comp Metabolic Ymt623 eGFR 96 ml/min/1.73m2 05/04/2017 Comp Metabolic Bmu591 BUN 23 mg/dL 05/04/2017 Comp Metabolic Fxk920 B/C Ratio 26.1 Ratio 05/04/2017 Comp Metabolic Wwt857 CALCIUM 8.9 mg/dL 05/04/2017 Comp Metabolic Uuv762 ALK PHOS 81 U/L 05/04/2017 Comp Metabolic Gdk481 AST(SGOT) 21 U/L 05/04/2017 Comp Metabolic Iah648 ALT(SGPT) 27 U/L 05/04/2017 Comp Metabolic Zpr644 BILI T 1.2 mg/dL 05/04/2017 Comp Metabolic Aan264 ALBUMIN 4.0 g/dL 05/04/2017 Comp Metabolic Gks637 TPRO 6.7 g/dL 05/04/2017 Comp Metabolic Yxc759 GLOB 2.7 g/dL 05/04/2017 Comp Metabolic Mgl462 A/G Ratio 1.5 Ratio 05/04/2017 Comp Metabolic Zbs107 Osmo 284 mOsmo 05/04/2017 C A/B FLU 6016411 Influenza A Scr Negative 02/16/2017 C A/B FLU 7325591 Influenza B Scr Positive 02/16/2017 Cbc With [...] 30.3 pg 05/23/2016 Cbc With Differential Ord2 [place]% 8.8 % 05/23/2016 Cbc With Differential Ord2 [...] 2.07 K/ul 05/23/2016 Cbc With Differential Ord2 [place] ABS# 0.5 K/ul 05/23/2016 Cbc With Differential Ord2 Eos ABS# 0.1 K/ul 05/23/2016 Cbc With Differential Ord2 Baso ABS# 0.0 K/ul 05/23/2016 Lipid Ord30 CHOL 397 mg/dL 05/17/2016 Lipid Ord30 HDL 48.0 mg/dl 05/17/2016 Lipid Ord30 TRIG 578 mg/dL 05/17/2016 Lipid Ord30 LDL Unable to calculate Due to elevated triglycerides mg/dL 05/17/2016 Lipid Ord30 C/HDL 8.3 Ratio 05/17/2016 %Hba1C Vho266 % HbA1c 27352-6 12.4 % 05/16/2016 %Hba1C Mwj303 Gluc Ave 309 mg/dL 05/16/2016 Cbc With [...] 87.4 fl 05/15/2016 Cbc With Differential Ord2 [place]% 7.8 % 05/15/2016 Cbc With Differential Ord2 [...] 2.04 K/ul 05/15/2016 Cbc With Differential Ord2 [place] ABS# 0.5 K/ul 05/15/2016 Cbc With Differential Ord2 Eos ABS# 0.1 K/ul 05/15/2016 Cbc With Differential Ord2 Baso ABS# 0.0 K/ul 05/15/2016 Tsh Ord6 hTSH II 1.70 uIU/mL 05/15/2016 Comp Metabolic Zhf106 NA 135 mEq/L 05/15/2016 Comp Metabolic Fgg044 K 3.9 mEq/L 05/15/2016 Comp Metabolic Vpz551 CL 96 mEq/L 05/15/2016 Comp Metabolic Vkl589 CO2 27.0 mEq/L 05/15/2016 Comp Metabolic Tfs409 ANION GAP 16 05/15/2016 Comp Metabolic Yly095 GLUCOSE 183 mg/dL 05/15/2016 Comp Metabolic Adk917 Creat 1.1 mg/dL 05/15/2016 Comp Metabolic Obc677 eGFR 71 ml/min/1.73m2 05/15/2016 Comp Metabolic Uvl937 BUN 17 mg/dL 05/15/2016 Comp Metabolic Dwp951 B/C Ratio 14.9 Ratio 05/15/2016 Comp Metabolic Smb166 CALCIUM 9.6 mg/dL 05/15/2016 Comp Metabolic Kps944 ALK PHOS 100 U/L 05/15/2016 Comp Metabolic Msb798 AST(SGOT) 20 U/L 05/15/2016 Comp Metabolic Wck597 ALT(SGPT) 20 U/L 05/15/2016 Comp Metabolic Crn537 BILI T 1.3 mg/dL 05/15/2016 Comp Metabolic Lhy914 ALBUMIN 4.6 g/dL 05/15/2016 Comp Metabolic Rtr777 TPRO 8.1 g/dL 05/15/2016 Comp Metabolic Xev316 GLOB 3.5 g/dL 05/15/2016 Comp Metabolic Frx943 A/G Ratio 1.3 Ratio 05/15/2016 Comp Metabolic Enn056 Osmo 276 mOsmo 05/15/2016 Review of Systems [...] of skin Location: face 05/04/2017 patch left shinto Full Exam - General 1994 Constitutional general [...] Procedure Codes Date THER/PROPH/DIAG INJ SC/IM CPT-4: 95277 10/21/2018 KETOROLAC TROMETHAMINE INJ CPT-4: J1885 10/21/2018 TRIAMCINOLONE ACET INJ NOS CPT-4: J3301 09/30/2018 THER/PROPH/DIAG INJ SC/IM CPT-4: 32201 09/11/2018 TRIAMCINOLONE ACET INJ NOS CPT-4: J3301 09/11/2018 IMMUNIZATION ADMIN CPT -4: 47806 07/22/2018 FLU VAC NO PRSV 4 MENA 3 YRS+ CPT-4: 86912 07/22/2018 TRIAMCINOLONE ACET INJ NOS CPT-4: J3301 06/28/2018 KETOROLAC TROMETHAMINE INJ CPT-4: J1885 05/02/2018 FLU VAC NO PRSV 4 MENA 3 YRS+ CPT-4: 89889 08/16/2017 IMMUNIZATION ADMIN CPT -4: 54646 08/16/2017 URINALYSIS NONAUTO W/O SCOPE CPT-4: 10052 06/21/2017 TRIAMCINOLONE ACET INJ NOS CPT-4: J3301 05/04/2017 THER/PROPH/DIAG INJ SC/IM CPT-4: 94729 05/04/2017 TRIAMCINOLONE ACET INJ NOS CPT-4: J3301 02/16/2017 ROCEPHIN, PER 250 MG CPT-4: J0696 02/16/2017 ROCEPHIN, PER 250 MG CPT-4: J0696 10/06/2016 URINALYSIS NONAUTO W/O SCOPE CPT-4: 83727 07/18/2016 TRIAMCINOLONE ACET INJ NOS CPT-4: J3301 01/20/2016 Vital Signs Date Vital 10/21/2018 Blood Pressure 1: 140/90 Code : 8480-6 BMI: 32.9 Code : 56010-7 Heart Rate 1 : 96 bpm Height: 6'2" SpO2: 92% Weight: 256 lbs 10/17/2018 Blood Pressure 1: 110/68 Code : 8480-6 BMI: 32.9 Code : 98885-3 Heart Rate 1 : 82 bpm Height: 6'2" SpO2: 97% Weight: 256 lbs 10/14/2018 Blood Pressure 1: 124/70 Code : 8480-6 BMI: 33.6 Code : 27440-5 Heart Rate 1 : 76 bpm Height: 6'2" SpO2: 99% Temperature: 36.3 (C) / 97.3 (F) Weight: 262 lbs 09/30/2018 Blood Pressure 1: 138/82 Code : 8480-6 BMI: 33.6 Code : 46361-5 Heart Rate 1 : 82 bpm Height: 6'2" SpO2: 98% Temperature: 36.3 (C) / 97.3 (F) Weight: 262 lbs 09/09/2018 Blood Pressure 1: 140/80 Code : 8480-6 BMI: 33.0 Code : 59622-0 Heart Rate 1 : 97 bpm Height: 6'2" SpO2: 93% Temperature: 36.8 (C) / 98.2 (F) Weight: 257 lbs 07/22/2018 Blood Pressure 1: 120/78 Code : 8480-6 BMI: 31.6 Code : 07337-2 Heart Rate 1 : 87 bpm Height: 6'2" SpO2: 98% Weight: 246 lbs 07/16/2018 Blood Pressure 1: 132/74 Code : 8480-6 BMI: 31.2 Code : 57367-9 Heart Rate 1 : 90 bpm Height: 6'2" SpO2: 96% Weight: 243 lbs 07/01/2018 Blood Pressure 1: 142/82 Code : 8480-6 BMI: 31.8 Code : 47481-6 Heart Rate 1 : 88 bpm Height: 6'2" SpO2: 98% Weight: 248 lbs 06/28/2018 Blood Pressure 1: 132/76 Code : 8480-6 BMI: 31.8 Code : 27349-4 Heart Rate 1 : 107 bpm Height: 6'2" SpO2: 98% Temperature: 37.9 (C) / 100.3 (F) Weight: 248 lbs 06/18/2018 Blood Pressure 1: 138/82 Code : 8480-6 BMI: 31.8 Code : 03404-9 Heart Rate 1 : 82 bpm Height: 6'2" SpO2: 97% Weight: 248 lbs 06/04/2018 Blood Pressure 1: 128/84 Code : 8480-6 BMI: 33.9 Code : 99532-2 Heart Rate 1 : 86 bpm Height: 6'2" SpO2: 95% Weight: 264 lbs 05/13/2018 Blood Pressure 1: 130/80 Code : 8480-6 BMI: 31.1 Code : 56110-8 Heart Rate 1 : 100 bpm Height: 6'2" SpO2: 94% Weight: 242 lbs 05/02/2018 Blood Pressure 1: 134/84 Code : 8480-6 BMI: 31.2 Code : 94211-7 Heart Rate 1 : 93 bpm Height: 6'2" SpO2: 98% Weight: 243 lbs 04/29/2018 Blood Pressure 1: 142/88 Code : 8480-6 BMI: 31.6 Code : 48676-6 Heart Rate 1 : 96 bpm Height: 6'2" SpO2: 96% Temperature: 36.7 (C) / 98.1 (F) Weight: 246 lbs 03/13/2018 Blood Pressure 1: 120/76 Code : 8480-6 BMI: 30.9 Code : 45366-5 Heart Rate 1 : 112 bpm Height: 6'2" SpO2: 97% Weight: 241 lbs 03/07/2018 Blood Pressure 1: 108/78 Code : 8480-6 BMI: 30.0 Code : 05599-2 Heart Rate 1 : 87 bpm Height: 6'2" SpO2: 98% Weight: 234 lbs 02/28/2018 Blood Pressure 1: 106/74 Code : 8480-6 BMI: 30.0 Code : 94455-9 Heart Rate 1 : 101 bpm Height: 6'2" SpO2: 98% Temperature: 36.4 (C) / 97.5 (F) Weight: 234 lbs 02/13/2018 Blood Pressure 1: 110/78 Code : 8480-6 BMI: 30.0 Code : 74416-3 Heart Rate 1 : 106 bpm Height: 6'2" SpO2: 98% Weight: 234 lbs 01/29/2018 Blood Pressure 1: 106/68 Code : 8480-6 BMI: 30.0 Code : 24423-4 Heart Rate 1 : 108 bpm Height: 6'2" SpO2: 98% Weight: 234 lbs 08/27/2017 Blood Pressure 1: 134/76 Code : 8480-6 Heart Rate 1: 98 bpm Height: SpO2: 97% Weight: 08/16/2017 Blood Pressure 1: 128/80 Code : 8480-6 BMI: 32.0 Code : 27507-6 Heart Rate 1 : 94 bpm Height: [...] Code : 8480-6 BMI: 31.8 Code : 71082-7 Heart Rate 1 : 102 bpm Height: [...] Code : 8480-6 BMI: 31.8 Code : 86171-8 Heart Rate 1 : 85 bpm Height: 6'2" SpO2: 96% Temperature: 36.6 (C) / 97.9 (F) Weight: 248 lbs 02/12/2017 Blood Pressure 1: 126/76 Code : 8480-6 BMI: 31.8 Code : 75118-5 Heart Rate 1 : 106 bpm Height: 6'2" SpO2: 91% Weight: 248 lbs 02/05/2017 Blood Pressure 1: 146/86 Code : 8480-6 BMI: 31.9 Code : 41794-4 Heart Rate 1 : 98 bpm Height: 6'2" SpO2: 87% Temperature: 36.7 (C) / 98.0 (F) Weight: 248 lbs 8 oz 01/29/2017 Blood Pressure 1: 132/84 Code : 8480-6 BMI: 31.8 Code : 29948-3 Heart Rate 1 : 83 bpm Height: 6'2" SpO2: 97% Weight: 248 lbs 10/13/2016 Blood Pressure 1: 128/72 Code : 8480-6 Heart Rate 1: 86 bpm SpO2: 94% 10/09/2016 Blood Pressure 1: 128/68 Code : 8480-6 Heart Rate 1: 136 bpm SpO2: 94% Temperature: 36.8 (C) / 98.2 (F) 10/06/2016 Blood Pressure 1: 140/80 Code : 8480-6 BMI: 32.1 Code : 91841-7 Heart Rate 1 : 94 bpm Height: 6'2" SpO2: 95% Weight: 250 lbs 07/18/2016 Blood Pressure 1: 128/86 Code : 8480-6 BMI: 32.1 Code : 52852-5 Heart Rate 1 : 89 bpm Height: 6'2" SpO2: 96% Weight: 250 lbs 06/22/2016 Blood Pressure 1: 118/70 Code : 8480-6 BMI: 32.1 Code : 96873-3 Heart Rate 1 : 70 bpm Height: 6'2" SpO2: 97% Weight: 250 lbs 05/23/2016 Blood Pressure 1: 128/80 Code : 8480-6 BMI: 32.1 Code : 08625-4 Heart Rate 1 : 76 bpm Height: 6'2" SpO2: 98% Weight: 250 lbs 05/15/2016 Blood Pressure 1: 110/90 Code : 8480-6 BMI: 31.3 Code : 19636-2 Heart Rate 1 : 111 bpm Height: 6'2" SpO2: 97% Temperature: 36.6 (C) / 97.8 (F) Weight: 244 lbs 01/20/2016 Blood Pressure 1: 128/76 Code : 8480-6 BMI: 33.0 Code : 97973-8 Heart Rate 1 : 103 bpm Height: [...] data Encounters Encounter Performer Location Codes Date ([id number]) 45669 EST. PATIENT, LEVEL III Diagnosis: Cellulitis of right finger[ICD10: L03.011] Diagnosis: Type 2 diabetes mellitus with foot ulcer[ICD10: E11.621] Diagnosis: Pain in right hand[ICD10: M79.641] Marcela Ha MD, [facility] CPT-4: 61709 10/21/2018 99035 EST. PATIENT, LEVEL III Diagnosis: Spontaneous ecchymoses[ICD10: R23.3] Diagnosis: Cellulitis of right lower limb[ICD10: L03.115] Diagnosis: Cellulitis of left lower limb[ICD10: L03.116] Madeline Ha MD, [facility] CPT-4: 75545 10/17/2018 ([id number]) 21076 EST. PATIENT, LEVEL III Diagnosis: Cough[ICD10: R05] Diagnosis: Acute bronchitis, unspecified[ICD10: J20.9] Melida Ha MD, [facility] CPT-4: 73602 10/14/2018 76155 EST. PATIENT, LEVEL III Diagnosis: Acute laryngopharyngitis[ICD10: J06.0] Diagnosis: Cough[ICD10: R05] Madeline Ha MD, [facility] CPT-4: 62736 09/30/2018 ([id number]) 73259 EST. PATIENT, LEVEL III Diagnosis: Acute recurrent maxillary sinusitis[ICD10: J01.01] Diagnosis: Cough[ICD10: R05] Diagnosis: Type 2 diabetes mellitus with hyperglycemia[ICD10: E11.65] Marcela Ha MD, [facility] CPT-4: 00582 09/09/2018 ([id number]) 82700 EST. PATIENT, LEVEL IV Diagnosis: Essential (primary) hypertension[ICD10: I10] Diagnosis: Mixed hyperlipidemia[ICD10: E78.2] Diagnosis: Bipolar disorder, current episode depressed, moderate[ICD10: F31.32] Diagnosis: Type 2 diabetes mellitus with other specified complication[ICD10: E11.69] Melida Ha MD, [facility] CPT-4: 26644 2017 ([id number]) 36173 EST. PATIENT, LEVEL III Diagnosis: Insomnia due to medical condition[ICD10: G47.01] Marcela Ha MD, [facility] CPT-4: 81967 07/16/2018 ([id number]) Miscellaneous no charge Diagnosis: Cough[ICD10: R05] Madeline Ha MD, [facility] CPT-4: 44301 07/01/2018 86035 EST. PATIENT, LEVEL III Diagnosis: Cough[ICD10: R05] Diagnosis: Acute laryngopharyngitis[ICD10: J06.0] Diagnosis: Other allergic rhinitis[ICD10: J30.89] Madeline Ha MD, [facility] CPT-4: 49133 06/28/2018 ([id number]) 01282 EST. PATIENT, LEVEL IV Diagnosis: Type 2 diabetes mellitus with hyperglycemia[ICD10: E11.65] Diagnosis: Essential (primary) hypertension[ICD10: I10] Melida Ha MD, [facility] CPT-4: 22232 06/18/2018 ([id number]) 76248 EST. PATIENT, LEVEL IV Diagnosis: Type 2 diabetes mellitus with hyperglycemia[ICD10: E11.65] Diagnosis: Essential (primary) hypertension[ICD10: I10] Diagnosis: Localized edema[ICD10: R60.0] Melida Ha MD, [facility] CPT- 4: 27887 06/04/2018 ([id number]) 19728 EST. PATIENT, LEVEL III Diagnosis: Type 2 diabetes mellitus with hyperglycemia[ICD10: E11.65] Diagnosis: Myalgia[ICD10: M79.1] Diagnosis: Pain in right hip[ICD10: M25.551] Diagnosis: Pain in left hip[ICD10: M25.552] Marcela Ha MD, [facility] CPT-4: 19230 05/13/2018 ([id number]) 71735 EST. PATIENT, LEVEL III Diagnosis: Myalgia[ICD10: M79.1] Diagnosis: Pain in right hip[ICD10: M25.551] Diagnosis: Pain in left hip[ICD10: M25.552] Marcela Ha MD, [facility] CPT-4: 70501 05/02/2018 ([id number]) 87955 EST. PATIENT, LEVEL IV Diagnosis: Essential (primary) hypertension[ICD10: I10] Diagnosis: Type 2 diabetes mellitus with hyperglycemia[ICD10: E11.65] Diagnosis: Major depressive disorder, single episode, moderate[ICD10: F32.1] Diagnosis: Myalgia[ICD10: M79.1] Marcela Ha MD, [facility] CPT-4: 01425 04/29/2018 ([id number]) 40797 EST. PATIENT, LEVEL IV Diagnosis: Type 2 diabetes mellitus with hyperglycemia[ICD10: E11.65] Diagnosis: Essential (primary) hypertension[ICD10: I10] Diagnosis: Major depressive disorder, single episode, moderate[ICD10: F32.1] Melida Ha MD, [facility] CPT-4: 57174 03/13/2018 ([id number]) 53716 EST. PATIENT, LEVEL III Diagnosis: Type 2 diabetes mellitus with hyperglycemia[ICD10: E11.65] Diagnosis: Bipolar disorder, current episode depressed, moderate[ICD10: F31.32] Diagnosis: Orthostatic hypotension[ICD10: I95.1] Marcela Ha MD, [facility] CPT-4: 97962 03/07/2018 ([id number]) 58443 EST. PATIENT, LEVEL IV Diagnosis: Type 2 diabetes mellitus with hyperglycemia[ICD10: E11.65] Diagnosis: Major depressive disorder, single episode, moderate[ICD10: F32.1] Diagnosis: Orthostatic hypotension[ICD10: I95.1] Diagnosis: Other fatigue[ICD10: R53.83] Marcela Ha MD, [facility] CPT-4: 63724 02/28/2018 57821 EST. PATIENT, LEVEL IV Diagnosis: Other fatigue[ICD10: R53.83] Diagnosis: Other malaise[ICD10: R53.81] Diagnosis: Gastro-esophageal reflux disease without esophagitis[ICD10: K21.9] Madeline Ha MD, [facility] CPT-4: 14925 02/13/2018 ([id number]) 68865 EST. PATIENT, LEVEL IV Diagnosis: Type 2 diabetes mellitus with foot ulcer[ICD10: E11.621] Diagnosis: Essential (primary) hypertension[ICD10: I10] Diagnosis: Gastro-esophageal reflux disease without esophagitis[ICD10: K21.9] Marcela Ha MD, [facility] CPT-4: 11382 01/29/2018 37814 EST. PATIENT, LEVEL III Diagnosis: Other malaise[ICD10: R53.81] Diagnosis: Other fatigue[ICD10: R53.83] Diagnosis: Pain in right shoulder[ICD10: M25.511] Diagnosis: Pain in left shoulder[ICD10: M25.512] Madeline Ha MD, [facility] CPT-4: 88894 08/27/2017 ([id number]) 93739 EST. PATIENT, LEVEL IV Diagnosis: Essential (primary) hypertension[ICD10: I10] Diagnosis: Type 2 diabetes mellitus with hyperglycemia[ICD10: E11.65] Diagnosis: VACCIN FOR INFLUENZA[ICD10: Z23] Melida Ha MD, [facility] CPT-4: 96227 08/16/2017 82116 EST. PATIENT, LEVEL III Diagnosis: Zoster without complications[ICD10: B02.9] Madeline Ha MD, [facility] CPT-4: 13649 07/26/2017 ([id number]) 92195 EST. PATIENT, LEVEL III Diagnosis: Cellulitis of right lower limb[ICD10: L03.115] Marcela Ha MD [facility] CPT-4: 76508 07/03/2017 17989 EST. PATIENT, LEVEL II Diagnosis: Laceration without foreign body of left forearm, initial encounter[ ICD10: S51.812A] Marcela Ha MD, [facility] CPT-4: 80417 06/29/2017 ([id number]) 10983 EST. PATIENT, LEVEL III Diagnosis: Cellulitis of right lower limb[ICD10: L03.115] Diagnosis: Type 2 diabetes mellitus with foot ulcer[ICD10: E11.621] Marcela Ha MD , [facility] CPT-4: 88238 06/18/2017 ([id number]) 63940 EST. PATIENT, LEVEL IV Diagnosis: Cellulitis of right lower limb[ICD10: L03.115] Diagnosis: Acute laryngopharyngitis[ICD10: J06.0] Diagnosis: Gastro-esophageal reflux disease without esophagitis[ICD10: K21.9] Marcela Ha MD, [facility] CPT-4: 29620 06/07/2017 ([id number]) 82621 EST. PATIENT, LEVEL III Diagnosis: Type 2 diabetes mellitus with hyperglycemia[ICD10: E11.65] Diagnosis: Insect bite (nonvenomous) of abdominal wall, initial encounter[ICD10 : S30.861A] Marcela Ha MD, [facility] CPT-4: 38793 05/17/2017 ([id number]) 12623 EST. PATIENT, LEVEL III Diagnosis: Allergic contact dermatitis due to plants, except food[ICD10: L23.7] Melida Ha MD, [facility] CPT-4: 24688 05/04/2017 ([id number]) 24557 EST. PATIENT, LEVEL III Diagnosis: Essential (primary) hypertension[ICD10: I10] Marcela Ha MD [facility] CPT-4: 52450 03/15/2017 ([id number]) 06361 EST. PATIENT, LEVEL III Diagnosis: Cough[ICD10: R05] Diagnosis: Essential (primary) hypertension[ICD10: I10] Marcela Ha MD [facility] CPT-4: 39803 03/01/2017 ([id number]) 81478 EST. PATIENT, LEVEL III Diagnosis: Cough[ICD10: R05] Diagnosis: Nasal congestion[ICD10: R09.81] Diagnosis: Acute recurrent maxillary sinusitis[ICD10: J01.01] Marcela Ha MD [facility] CPT-4: 32971 02/16/2017 ([id number]) 29485 EST. PATIENT, LEVEL III Diagnosis: Type 2 diabetes mellitus with hyperglycemia[ICD10: E11.65] Marcela Ha MD [facility] CPT-4: 96299 02/12/2017 ([id number]) 77085 EST. PATIENT, LEVEL IV Diagnosis: Type 2 diabetes mellitus with hyperglycemia[ICD10: E11.65] Diagnosis: Muscle weakness (generalized)[ICD10: M62.81] Diagnosis: Disorientation, unspecified[ICD10: R41.0] Marcela Ha MD [facility] CPT-4: 59357 02/05/2017 ([id number]) Patient admitted to the hospital from clinic (NO CHARGE) Diagnosis: Type 2 diabetes mellitus with hyperglycemia[ICD10: E11.65] Diagnosis: Disorientation, unspecified[ICD10: R41.0] Diagnosis: Muscle weakness (generalized)[ICD10: M62.81] Marcela Ha MD [facility] CPT-4: 14528T 01/29/2017 ([id number]) Miscellaneous no charge Diagnosis: Cellulitis of right lower limb[ICD10: L03.115] Marcela Ha MD [facility] CPT-4: 27326 10/13/2016 ([id number]) Miscellaneous no charge Diagnosis: Type 2 diabetes mellitus with foot ulcer[ICD10: E11.621] Diagnosis: Pain in right foot[ICD10: M79.671] Marcela Ha MD, [facility] CPT-4: 68808 10/09/2016 75942 EST. PATIENT, LEVEL II Diagnosis: Cellulitis of right lower limb[ICD10: L03.115] Marcela Ha MD [facility] CPT-4: 10036 10/06/2016 ([id number]) 17571 EST. PATIENT, LEVEL IV Diagnosis: Low back pain[ICD10: M54.5] Diagnosis: Other deformities of toe(s) (acquired), left foot[ICD10: M20.5X2] Diagnosis: Type 2 diabetes mellitus with foot ulcer[ICD10: E11.621] Marcela Ha MD , [facility] CPT-4: 88620 07/18/2016 ([id number]) 06771 EST. PATIENT, LEVEL III Diagnosis: Type 2 diabetes mellitus with hyperglycemia[ICD10: E11.65] Marcela Ha MD, [facility] CPT-4: 31595 06/22/2016 ([id number]) 64013 EST. PATIENT, LEVEL IV Diagnosis: Type 2 diabetes mellitus with hyperglycemia[ICD10: E11.65] Diagnosis: Mixed hyperlipidemia[ICD10: E78.2] Diagnosis: Other hemoglobinopathies[ICD10: D58.2] Marcela Ha MD, [facility] CPT-4: 15895 05/23/2016 ([id number]) 09771 EST. PATIENT, LEVEL IV Diagnosis: Type 2 diabetes mellitus with other specified complication[ICD10: E11.69] Diagnosis: Dehydration[ICD10: E86.0] Marcela Ha MD, [facility] CPT-4: 78975 05/15/2016 ([id number]) OFFICE VISIT, NEW - LEVEL 3 Diagnosis: Allergic contact dermatitis due to plants, except food[ICD10: L23.7] Madeline Ha MD, [facility] CPT-4: 14812 01/20/2016 Plan of Care Planned Activity Notes Codes Status Date Visit Plan: Cellulitis -right hand- stop keflex- start doxycycline as directed, return to clinic as previously directed, call for acute change in symptoms, worsening redness, warmth, discharge. Right hand pain- toradol injection today in the office Diabetic foot ulcer- patient to see specialist this afternoon 10/21/2018 Patient Education: Patient Medication Summary Completed [...] discharge. 10/17/2018 Appointment: Madeline Kennedy WPtel: [phone] (15 min) Moderate 10/17/2018 Patient Education: [...] acutely worsen. 10/14/2018 Appointment: Marcela Oshea WPtel: [facility] (15 min) Moderate 10/14/2018 Patient Education: Patient Medication Summary Completed 10/14/2018 Care Plan: CHEST X-RAY 2VW FRONTAL&LATL LOINC : 64987-4 Pending 10/14/2018 Visit Plan: URI - Pt [...] spray. 09/30/2018 App[facility]ment: [phone] ([facility]) Moderate 09/30/2018 Patient [...] Hgb A1C 09/09/2018 Appointment: Marcela Oshea WPtel: [facility]9 [phone] (15 min) Moderate 09/09/2018 Patient Education: Patient Medication Summary Completed 09/09/2018 Patient Education: Patient Medication Summary Completed 09/06/2018 Patient Education: Cholesterol Management Completed 09/06/2018 Care Plan: Comp Metabolic Pending 09/06/2018 Care Plan: Cbc With Differential Pending 09/06/2018 Care Plan: %Hba1C LOINC : 72247-5 Pending 09/06/2018 Care Plan: Tsh Pending 09/06/2018 Care Plan: Lipid Pending 09/06/2018 Appointment: Marcela Oshea WPtel: [facility]5 [phone] (15 min) Moderate 08/26/2018 Appointment: Marcela Oshea WPtel: [facility]5 [phone] (15 min) Moderate 08/23/2018 Visit [...] clinic. 07/22/2018 Appointment: [phone] ([facility]) Moderate 07/22/2018 Patient Education: [...] insomnia. 07/16/2018 Appointment: [phone] [place] (30 min) Complex 07/16/2018 Patient Education: Patient Medication Summary Completed 07/16/2018 Visit Plan: cough - improved - notify clinic if symptoms do not completely resolve, or with any questions or concerns. 07/01/2018 Appointment: Madeline Kennedy WPtel: [facility] (15 min) Moderate 07/01/2018 Patient [...] allergy spray. 06/28/2018 Appointment: Madeline Kennedy WPtel: [facility]4 [facility] (15 min) Moderate 06/28/2018 Patient Education: Patient Medication Summary Completed 06/28/2018 Patient Education: Patient Medication Summary Completed 06/21/2018 Care Plan: Annabel RICKS [place] Pending 06/21/2018 Visit Plan: Diabetes Mellitus - [...] at home. 06/18/2018 Appointment: Melida Ha WPtel: [facility]4 [facility] (15 min) Moderate 06/18/2018 Patient [...] Ha WPtel: [phone] [facility] (15 min) Moderate 06/04/2018 Patient Education: Patient [...] allow for greater blood glucose control. Joint fvul-vcxsvbil-kcnwmow- symptoms have improved -stop meloxicam due to upset stomach-call if symptoms return 05/13/2018 Appointment: Marcela Oshea WPtel: [facility]1 [phone] (30 min) Complex 05/13/2018 Patient Education: Patient Medication Summary Completed 05/13/2018 Visit Plan: Bilateral hip eueh-evniydem-ndglcjc IM injection administered today for c/o continued myalgia/arthralgia. Patient to start taking Meloxicam 15mg PO daily. Advised to return to clinic if symptoms do not improve. 05/02/2018 Appointment: Marcela Oshea WPtel: [phone] [phone] (30 min) Complex 05/02/2018 Patient [...] readings at home. Diabetes Mellitus -check labs Mshhphah-kfgkvah-zlvt bite-rx for doxycycline-follow up in 2 weeks 04/29/2018 Appointment: Marcela Oshea WPtel: [phone] [phone] (15 min) Moderate 04/29/2018 Patient Education: Patient Medication Summary Completed 04/29/2018 Appointment: Melida Ha WPtel: [phone] [facility] (15 min) Moderate 04/15/2018 Appointment: Marcela Oshea WPtel: [phone] [phone] (30 min) Complex 03/21/2018 Visit Plan: Hypertension [...] cymbalta 03/13/2018 Appointment: Melida Ha WPtel: [phone] [facility] (30 min) Complex 03/13/2018 Patient Education: Patient Medication Summary Completed 03/13/2018 Visit Plan: DM-continue same medications-monitor blood sugars routinely as directed -rx for new glucometer and test strips provided Bipolar-currently depressed-patient start on vraylar-follow up in 2 weeks, sooner if needed. Patient and verbalied understanding of plan. Hypotension- stay off losartan 03/07/2018 Appointment: Marcela Oshea WPtel: [phone] [phone] (30 min) Complex 03/07/2018 Patient Education: Patient Medication Summary Completed 03/07/2018 Appointment: [phone] (15 min) Moderate 03/04/2018 Visit Plan: [...] patient. 02/28/2018 Appointment: Marcela Oshea WPtel: [phone] [phone] [place] (30 min) Complex 02/28/2018 Patient Education: [...] Kennedy WPtel: [facility] (15 min) Moderate 02/13/2018 Patient Education: Patient Medication Summary Completed 02/13/2018 Referral: Sun Glynn Patient informed. Referral info faxed. Completed Visit Plan: DM-weight loss-not checking blood sugars- patient sent for labs today HTN-low nttzm-fpayzyn-rnbzq labs Callus of foot and fissue of heel-refer to Dr Glynn for evaluation Esophageal Reflux - the patient has been counseled against excessive intake of caffeine, spicy foods, peppermint , and cinnamon - all of which can exacerbate esophageal reflux. The patient is to take medications as prescribed and call the office if the symptoms are not improving. 01/29/2018 Appointment: Marcela Oshea WPtel: [phone] [place] (30 min) Complex 01/29/2018 Patient Education: Patient Medication Summary Completed 01/29/2018 Care Plan: Comp Metabolic Cancelled 01/29/2018 Care Plan: Cbc With Differential Cancelled 01/29/2018 Care Plan: %Hba1C LOINC : 28212-4 Cancelled 01/29/2018 Care Plan: Referral Order SNOMED-CT : [id number] Cancelled 01/29/2018 Visit Plan: Fatigue, malaise, joint [...] Kennedy WPtel: [facility] (15 min) Moderate 08/27/2017 Patient [...] - 08/16/2017 Appointment: Melida Ha WPtel: [phone] [facility] (30 min) Complex 08/16/2017 Patient Education: Patient Medication Summary Completed 08/16/2017 Patient Education: Obesity Completed 08/16/2017 Appointment: Madeline Kennedy WPtel: [facility]1 [facility] (30 min) Complex 08/07/2017 Visit [...] contagious. 07/26/2017 Appointment: Madeline Kennedy WPtel: [phone] [facility] [place] (15 min) Moderate 07/26/2017 Patient Education: Patient Medication Summary Completed 07/26/2017 Visit Plan: Cellulitis right foot-cultured today in the office-home health to reapply wound vac--appt with wound care on to evaluate for debridement- 07/03/2017 Appointment: Marcela Oshea WPtel: [phone] [phone] [place] (30 min) Complex 07/03/2017 Patient Education: Patient Medication Summary Completed 07/03/2017 Visit Plan: Abrasion left arm - Pt was instructed to keep the wound clean, wash with antibacterial soap, use triple antibiotic ointment, call if redness, pustular drainage, or any other acute concerns. 06/29/2017 Appointment: Marcela Oshea WPtel: [facility]9 [phone] (15 min) Moderate 06/29/2017 Patient [...] Marcela Oshea WPtel: [phone] [place] (15 min) Moderate 06/18/2017 Patient Education: [...] diet-start prilosec 06/07/2017 Appointment: Marcela Oshea WPtel: [phone] (10 min) Simple 06/07/2017 Patient Education: [...] Oshea WPtel: [facility]2 [phone] (30 min) Complex 05/17/2017 Patient Education: Patient [...] edge called into [facility]. 05/04/2017 Appointment: Marcela Oshea WPtel: [facility]7 [address] (30 min) Complex 05/04/2017 Patient Education: [...] home. Cough-resolved 03/15/2017 Appointment: Marcela Oshea WPtel: [facility]0 [address] (15 min) Moderate 03/15/2017 Patient Education: Patient Medication Summary Completed 03/15/2017 Appointment: Marcela Oshea WPtel: [phone] [phone] (30 min) Complex 03/12/2017 Visit [...] as discussed 02/16/2017 Appointment: Marcela Oshea WPtel: [facility]0 [phone] (15 min) Moderate 02/16/2017 Patient [...] less controlled. 02/12/2017 Appointment: Marcela Oshea WPtel: [facility] [phone] (30 min) Complex 02/12/2017 Patient Education: Patient Medication Summary Completed 02/12/2017 Appointment: Marcela Oshea WPtel: [facility]8 [phone] (30 min) Complex 02/06/2017 Visit Plan: Diabetes [...] Oshea WPtel: [facility]5 [phone] (30 min) Complex 02/05/2017 Patient Education: Patient Medication Summary Completed 02/05/2017 Appointment: Marcela Oshea WPtel: [address] [place], [place] [phone] [place] (30 min) Complex 01/30/2017 Visit Plan: Acute confusion-uncontrolled diabetes- chronically noncompliant with treatment and stopped his insulin several months ago-r/o stroke vs DKA-Dr Ha in to evaluate patient-plan to admit for further work up and treatment-patient's called and she transported him to the hospital 01/29/2017 Appointment: Marcela Oshea WPtel: [address] [place], [place] [phone] (30 min) Complex 01/29/2017 Patient Education: Patient Medication Summary Completed 01/29/2017 Patient Education: Obesity Completed 01/29/2017 Visit Plan: Right foot pain-MRI shows foreign body-appt with Dr Grewal for evaluation on Sunday. 10/13/2016 Appointment: Marcela Oshea WPtel: [facility]5 [phone] [place] (15 min) Moderate 10/13/2016 Patient Education: Patient Medication Summary Completed 10/13/2016 Appointment: Marcel[facility]Ptel[phone] [place] (30 min) Complex 10/12/2016 Visit Plan: Right foot ufan-wsylirpi-crhiv washer dropped on foot-xray negative but pain continues to increase-recommend MRI of foot for further evaluation-refer to wound care for lesions on right foot, patient has diabetes and history of osteomyelitis-culture obtained today-continue oral abx- follow up in the office on , sooner if needed 10/09/2016 Visit Plan: Right foot qyqv-lazvwkde-jytyk washer dropped on foot-xray negative but pain continues to increase-recommend MRI of foot for further evaluation-refer to wound care for lesions on right foot, patient has diabetes and history of osteomyelitis-culture obtained today-continue oral abx- follow up in the office on , sooner if needed 10/09/2016 Visit Plan: Right foot tmmi-gbbjkymo-xspel washer dropped on foot-xray negative but pain continues to increase-recommend MRI of foot for further evaluation-refer to wound care for lesions on right foot, patient has diabetes and history of osteomyelitis-culture obtained today-continue oral abx- follow up in the office on , sooner if needed 10/09/2016 Appointment: Marcela Oshea WPtel: [facility]9 [phone] (30 min) Complex 10/09/2016 Patient Education: Patient Medication Summary Completed 10/09/2016 Visit Plan: Cellulitis - continue with oral antibiotics as previously directed, return to clinic as previously directed, call for acute change in symptoms, worsening redness, warmth, discharge. 10/06/2016 Appointment: Marcela Oshea WPtel: [facility]7 [phone] [place] (10 min) Simple 10/06/2016 Patient Education: Patient Medication Summary Completed 10/06/2016 Appointment: Marcela Oshea WPtel: [facility]8 [phone] (30 min) Complex 08/24/2016 Referral: Sun Glynn Referral Completed 07/21/2016 Visit Plan: Low back pain- history of spinal fusion- patient for xray lumbar spine-RX sent to [facility] pharmacy and instructed on use-topical voltaren samples provided and instructed on use. Ok to use tylenol as needed as well. The patient is to call the office if the pain is worsening or does not improve. Pressure ulcer left 4th toe-refer to Dr Glynn for evaluation 07/18/2016 Appointment: Marcela Oshea WPtel: [facility]8 [phone] (30 min) Complex 07/18/2016 Patient Education: Patient Medication Summary Completed 07/18/2016 Patient Education: Obesity Completed 07/18/2016 Care Plan: Referral Order SNOMED-CT : [id number] Cancelled 07/18/2016 Visit Plan: Diabetes Mellitus - [...] control. 06/22/2016 Appointment: Marcela Oshea WPtel: [address] [phone] (30 min) Complex 06/22/2016 Patient [...] today 05/23/2016 Appointment: Marcela Oshea WPtel: [address] [phone] (30 min) Complex 05/23/2016 Patient [...] of plan. 05/15/2016 Appointment: Marcela Oshea WPtel: [phone] (15 min) Moderate 05/15/2016 Patient [...] if you want blue rosieo called into [facility]. xray lumbar spine flexeril as needed voltaren gel ulcer left 4th toe-refer to compliance and control analyst . Low back pain- history of spinal fusion-patient for xray lumbar spine-RX sent to [facility] pharmacy and instructed on [...] for fracture from injury . Right foot fkyw-umtwmmei-dlgpf washer dropped on foot-xray negative but pain [...] for fracture from injury . Right foot psbe-kssdfdnv-nkdvo washer dropped on foot-xray negative but pain [...] for fracture from injury . Right foot cydi-lmgjjlak-kqvqp washer dropped on foot-xray negative but pain continues to increase-recommend MRI of foot for further evaluation-refer to wound care for lesions on right foot, patient has diabetes and history of osteomyelitis-culture obtained today-continue oral abx-follow up in the office on , sooner if needed . Bilateral hip qdvw-mcatqdqp-hzstztm IM injection administered today for c/o continued myalgia/arthralgia. Patient to start taking Meloxicam 15mg PO daily. Advised to return to clinic if symptoms do not improve. . DM-weight loss-not checking blood sugars-patient sent for labs today HTN-low dclwe-zdicuqc-vyweq labs Callus of foot and fissue of [...] readings are starting to become less controlled. Wskdqdycj-pwyxjrnl-qajctwgb to monitor Generalized weakness-refer for PT-patient refuses [...] allow for greater blood glucose control. Joint ygkm-vjcesxxk-dkpppqr-symptoms have improved -stop meloxicam due to upset [...] readings at home. Diabetes Mellitus -check labs Fieqrrqd-jabqghb-cslo bite-rx for doxycycline-follow up in 2 weeks [...]
[2019-01-01 16:15] VITALS: BP 140/88
[2019-01-01] MEDS ORDERED: ONDANSETRON 4 MG/2 ML (SDV) Z0FRAN IV PRN (16:15)
[2019-01-01] MEDS ORDERED: CATHETER FLUSH 10 ML SYR IV PRN (16:15)
[2019-01-01 16:30] VITALS: BP 130/86
[2019-01-01] MEDS ORDERED: NITROGLYCERIN 0.4 MG SL TABS BTL 25'S SL PRN (16:30)
[2019-01-01 16:45] VITALS: BP 118/81
[2019-01-01 17:00] VITALS: BP 124/96
[2019-01-01] MEDS ORDERED: FLU QUADRIvalent (5+ YOA) 2018-2019 (AFLURIA) 0.5 ML IM ONE (17:15)
--- OUTSIDE RECORDS SUMMARY | 2019-01-01 18:41 | XMS REPORT | Clinical Summary ---
Author Author [facility] Organization [facility] Address Unknown Phone Unavailable Care Team Providers Care News Videographer Name Role Phone Gordo Ferguson MD Unavailable Gildardo Craig MD PCP Georgina Roberts RN Unavailable Unavailable Bren Howard RN Unavailable Unavailable Rohini Muniz DO Unavailable Unavailable Source Comments Some departments are not documenting in the electronic medical record. If you do not see the information that you expected, contact Release of Information in the Health Information Management department at [phone] for further assistance in locating additional records.[facility] Allergies No Known Allergies Medications End [...] Taken Vital Sign Reading 11/17/2013 3:22 PM COMMERCIAL ESCROW ASSISTANT Blood Pressure 146/79 11/17/2013 3:22 PM COMMERCIAL ESCROW ASSISTANT Pulse 100 11/17/2013 3:22 PM COMMERCIAL ESCROW ASSISTANT Temperature 36.2 C (97.1 F) 11/17/2013 3:22 PM COMMERCIAL ESCROW ASSISTANT Respiratory Rate 20 09/20/2013 9:44 PM COMMERCIAL ESCROW ASSISTANT Oxygen Saturation 99% - Inhaled Oxygen - Concentration 11/17/2013 3:22 PM COMMERCIAL ESCROW ASSISTANT Weight 116.1 kg (256 lb) 11/17/2013 3:22 PM COMMERCIAL ESCROW ASSISTANT Height 188 cm (6' 2") 11/17/2013 3:22 PM COMMERCIAL ESCROW ASSISTANT Body Mass Index 32.87 Plan of Treatment [...] on file. For more information, please contact: [facility] [address] [place] [address] Date Inactivated Comments Code Status Date Activated 09/08/2013 6:52 PM Full Code 08/30/2013 11:52 PM Provider has discussed Code Status Yes w/Patient or Family? 08/16/2013 7:47 PM Full Code 08/13/2013 5:24 PM Provider has discussed Code Status Yes w/Patient or Family?
[2019-01-01 19:31] LABS: MYOGLOBIN SERUM 86.7 NG/ML (10.0-92.0)
[2019-01-01 19:41] VITALS: BP 126/86
[2019-01-01] MEDS: morphine INJ 4 MG/ML 1 ML (VIAL/SYRINGE) IV PRN ×2 (20:00→22:43)
[2019-01-01] MEDS: CATHETER FLUSH 10 ML SYR IV SCH (21:34)
[2019-01-02] VITALS (7 sets, daily range): BP systolic 100–135; BP diastolic 61–89
[2019-01-02 00:23] LABS: MYOGLOBIN SERUM 90.6 NG/ML (10.0-92.0)
[2019-01-02 03:56] LABS: BASOPHILS % (AUTO) 0 % (0-10); EOSINOPHILS # (AUTO) 0.1 10^3/uL (0.0-0.3); EOSINOPHILS % (AUTO) 1 % (0-10); HEMATOCRIT 39 % (40-54); HEMOGLOBIN 13.3 G/DL (13.3-17.7); LYMPHOCYTES # (AUTO) 2.4 X 10^3 (1.0-4.0); LYMPHOCYTES % (AUTO) 28 % (12-44); MEAN CORPUSCULAR HEMOGLOBIN 31 PG (25-34); MEAN CORPUSCULAR HGB CONC 34 G/DL (32-36); MEAN CORPUSCULAR VOLUME 91 FL (80-99); MEAN PLATELET VOLUME 10.4 FL (7.4-10.4); MONOCYTES # (AUTO) 1.1 X 10^3 (0.0-1.0); MONOCYTES % (AUTO) 13 % (0-12); NEUTROPHILS # (AUTO) 4.9 X 10^3 (1.8-7.8); NEUTROPHILS % (AUTO) 58 % (42-75); PLATELET COUNT 200 10^3/uL (130-400); WHITE BLOOD COUNT 8.4 10^3/uL (4.3-11.0)
[2019-01-02 04:16] LABS: ALBUMIN 3.4 GM/DL (3.2-4.5); BILIRUBIN,TOTAL 1.4 MG/DL (0.1-1.0); CREATININE SERUM 1.24 MG/DL (0.60-1.30); POTASSIUM 4.1 MMOL/L (3.6-5.0); TOTAL PROTEIN 6.7 GM/DL (6.4-8.2)
[2019-01-02] MEDS: CATHETER FLUSH 10 ML SYR IV SCH ×3 (06:00→22:27)
[2019-01-02] MEDS ORDERED: HEParin 1000 UNIT/ML (10ML VIAL) FOR BOLUS ONE (06:44)
[2019-01-02] MEDS ORDERED: LIDOCAINE 1% INJ 20 ML 20 ML VIAL ONE (06:44)
[2019-01-02] MEDS ORDERED: NS IV 1000 ML 2,000 ML ONE (06:44)
--- NOTE | 2019-01-02 07:51 | NUR ---
pt already received vac in 2018. will call doc office for date
--- NOTE | 2019-01-02 08:25 | Consultation-Cardiology ---
HPI-Cardiology Cardiology Consultation: Date of Consultation 01/02/19 Date of Admission Attending Physician Rosa Maria Ha MD Admitting Physician Rosa Maria Ha MD Consulting Physician Chris BRENNAN MD HPI: Time Seen by a Provider: 08:10 Chief Complaint: Chest pain This is a 58-year-old gentleman who has history of diabetes, hypertension and hyperlipidemia. He presented to the office yesterday with complains of chest pain. His chest pain was 6/10, moderate intensity but constant. No significant radiation. Similar quality as the chest pain during his NE however less intense. No associated cardiac symptoms. No significant benefit with 3 nitroglycerin. He therefore decided to come to the ER. I saw him first as an inpatient consultation on 05/15/2018 with complain of moderate to severe chest pain for 7-8 hours. EKG showed anterior Q waves with ST elevation. Urgent coronary angiography was done which showed chronic total occlusion of the LAD. Chronic total occlusion of the OM 1 artery. Severe ostial OM 2 artery stenosis which was treated successfully with a drug-eluting stent. Severe distal RCA stenosis. We were not able to perform PCI to the mid LAD. Patient continued to have chest discomfort. Significantly elevated troponin. The patient was transferred to [facility] and CAR BODY INSPECTOR PCI to the LAD was done. Patient was transferred back to her hospital for inpatient rehabilitation and did well during inpatient rehabilitation. Patient is on dual antiplatelet therapy including aspirin and Brilinta. His also on atorvastatin 80 mg, carvedilol. LV gram showed normal LV function with apical akinesis. During his hospitalization in [facility] he received intra- aortic balloon pump. He was also agitated and therefore intubated. He became septic because of diabetic ulcers on left lower extremity and were treated with broad-spectrum antibiotics. He subsequently improved. Review of Systems-Cardiology Review of Systems Constitutional: As described under HPI; No As described under HPI, No no symptoms reported, No chills, No fever, No lightheadedness Eyes: No As described under HPI, No no symptoms reported, No blindness, No blurred vision, No contact lenses, No drainage, No decreased acuity, No foreign body sensation, No pain, No vision change Ears/Nose/Throat: No As described under HPI, No no symptoms reported, No chronic hearing loss, No ear discharge, No ear pain, No nasal drainage, No ulcerations Respiratory: No no symptoms reported; As described under HPI; No As described under HPI, No cough, No orthopnea, No shortness of breath, No SOB with excertion Cardiovascular: No no symptoms reported; As described under HPI; No As described under HPI; chest pain; No edema, No irregular heart rate, No lightheadedness, No palpitations Gastrointestinal: No no symptoms reported, No As described under HPI, No abdomen distended, No abdominal pain, No blood streaked bowels, No constipation , No diarrhea, No nausea, No vomiting, No stool coloration changes Genitourinary: No As described under HPI, No burning, No dysuria, No discharge , No frequency, No flank pain, No hematuria, No urgency Skin: No rash, No skin related problems, No ulcerations Psychiatric/Neurological: No anxiety, No depression, No seizure, No focal weakness, No syncope Hematologic: No bleeding abnormalities All Other Systems Reviewed Negative Unless Noted: Yes IOG-Gmoptt-Zihvya Hx Patient Social History Alcohol Use: Denies Use Recreational Drug Use: No Smoking Status: Never a Smoker 2nd Hand Smoke Exposure: No Recent Foreign Travel: No Recent Infectious Disease Expo: No Hospitalization with Isolation: Denies Immunizations Up To Date Tetanus Booster (TDap): Unknown Date of Pneumonia Vaccine: Jan 02, 2011 Date of Influenza Vaccine: Aug 05, 2013 Past Medical History PMH As described under Assessment. Family Medical History Family History: Family history: Cardiovascular disease 19 FATHER Family history: Diabetes mellitus 19 MOTHER Allergies and Home Medications Allergies Coded Allergies: linezolid (Verified Allergy, Unknown, 05/28/18) Home Medications Aspirin 81 Mg Tablet.dr, 81 MG PO DAILY Prescribed by: ROSA MARIA HA on 05/31/18 1042 Atorvastatin Calcium 80 Mg Tablet, 80 MG PO HS Prescribed by: ROSA MARIA HA on 05/31/18 1042 Carvedilol 6.25 Mg Tablet, 6.25 MG PO BID Prescribed by: ROSA MARIA HA on 05/31/18 1042 Cefepime HCl/D5w 2 Gm/50 Ml Piggyback, 2 GM IV BID LAST DOSE DUE ON 06/07/18 Prescribed by: RED ABREU on 05/30/18 1435 Cephalexin 500 Mg Capsule, 500 MG PO Q6H Prescribed by: EARNEST MULLINS on 10/20/18 1305 Clonazepam 1 Mg Tablet, 2 MG PO HS, (Reported) TAKES 2 (1 MG) TABLETS Duloxetine HCl 30 Mg Capsule.dr, 30 MG PO DAILY, (Reported) Insulin Aspart 100 Unit/1 Ml Susp, 10 UNIT SQ AC Prescribed by: ROSA MARIA HA on 05/31/18 1042 Insulin Glargine,Hum.rec.anlog 300 Unit/1 Ml Insuln.pen, 50 UNIT SQ DAILY, ( Reported) Metronidazole 500 Mg Tablet, 500 MG PO TID Prescribed by: ROSA MARIA HA on 05/31/18 1050 Metronidazole/Sodium Chloride 500 Mg/100 Ml Piggyback, 500 MG IV Q8HR LAST DOSE DUE ON 06/07/18 Prescribed by: RED ABREU on 05/30/18 1435 Pregabalin 50 Mg Capsule, 50 MG PO DAILY, (Reported) Ticagrelor 90 Mg Tablet, 90 MG PO BID Prescribed by: ROSA MARIA HA on 05/31/18 1042 Vancomycin HCl in Dextrose 5 % 1.25 Gm/250 Ml Plast..bag, 1.25 GM IV BID LAST DOSE DUE ON 06/07/18 Prescribed by: RED ABREU on 05/30/18 1435 Patient Home Medication List Home Medication List Reviewed: Yes Physical Exam-Cardiology Physical Exam Vital Signs/I&O 01/02/19 01/02/19 01/02/19 01/02/19 00:00 01:00 01:22 04:00 Temp 98.0 Pulse 83 81 Resp 18 B/P (MAP) 100/70 (80) Pulse Ox 93 96 94 O2 Delivery Nasal Cannula Nasal Cannula Nasal Cannula O2 Flow Rate 2.00 2.00 2.00 01/02/19 01/02/19 01/02/19 01/02/19 04:27 07:00 08:00 08:00 Temp 97.7 Pulse 80 84 84 Resp 16 10 B/P (MAP) 105/68 (80) 118/89 (99) Pulse Ox 93 96 98 O2 Delivery Nasal Cannula Room Air Nasal Cannula O2 Flow Rate 2.00 2.00 01/02/19 00:00 Intake Total 400 ml Balance 400 ml Capillary Refill : Less Than 3 Seconds Constitutional: appears stated age, AAO x 3; No apparent distress; well- developed, well-nourished HEENT: PERRL; No normal ENT inspection, No TMs normal, No pharynx normal, No scleral icterus (R), No scleral icterus (L), No pale conjunctivae (R), No pale conjunctivae (L), No photophobia, No TM abnormal (R), No TM abnormal (L), No pharyngeal erythema, No tonsillar exudate, No other, No discharge, No EOMI; hearing is well preserved; No hard of hearing; oral hygience is good; No ulceration, No xanthelasmas are seen Neck: No non-tender, No full range of motion, No supple, No normal inspection, No carotid bruit, No limited range of motion, No lymphadenopathy (R), No lymphadenopathy (L), No tender lateral, No tender midline, No thyromegaly, No other; carotid pulses are 2 + bilaterally; No with good upstrokes Respiratory: No accessory muscle use, No respiratory distress, No chest tender , No chest expansion is symmetric; chest is bilaterally symmetric; No lungs clear to percussion; lungs clear to auscultation; No crackles, No rhonchi, No rales, No stridor, No wheezing, No pleural rub, No other Cardiovascular: regular rate-rhythm; No irregularly irregular, No extra beats, No parasternal heave is noted, No JVD, No edema, No bradycardia, No tachycardia , No point of maximal impulse, No cardiac thrills are palpable; S1 and S2; No gallop/S3, No gallop/S4, No diastolic murmur, No systolic murmur, No friction rub, No click, No other Gastrointestinal: No tender, No soft, No round, No distended, No pulsatile mass , No organomegaly, No guarding, No rebound, No tenderness, No hernia, No mass, No audible bowel sounds, No abnormal bowel sounds, No abdominal bruits, No spleenomegaly, No other Rectal: deferred Extremities: No normal range of motion, No non-tender, No normal inspection, No pedal edema, No calf tenderness, No normal capillary refill, No pelvis stable , No calf tenderness, No inflammation, No pedal edema, No slow capillary refill , No swelling, No other, No abrasion, No clubbing, No cyanosis, No ecchymosis, No laceration, No no lower extremity edema bilateral, No significant edema, No tenderness, No wound Neurologic/Psychiatric: no motor/sensory deficits, alert, normal mood/affect, oriented x 3, power is 5/5 both on sides Skin: No normal color, No warm/dry, No cyanosis, No cool, No diaphoresis, No damp, No ecchymosis, No jaundice, No mottled, No pallor, No rash, No tattoos/ piercings, No ulcerations, No rash on exposed areas, No ulcerations on exposed areas, No other Data Review Labs Laboratory Tests 01/01/19 12:50: White Blood Count 9.6, Red Blood Count 4.42, Hemoglobin 13.6, Hematocrit 40, Mean Corpuscular Volume 90, Mean Corpuscular Hemoglobin 31, Mean Corpuscular Hemoglobin Concent 34, Red Cell Distribution Width 12.7, Platelet Count 192, Mean Platelet Volume 10.5H, Neutrophils (%) (Auto) 65, Lymphocytes (%) (Auto) 22 , Monocytes (%) (Auto) 12, Eosinophils (%) (Auto) 1, Basophils (%) (Auto) 0, Neutrophils # (Auto) 6.3, Lymphocytes # (Auto) 2.1, Monocytes # (Auto) 1.1H, Eosinophils # (Auto) 0.1, Basophils # (Auto) 0.0, Prothrombin Time 13.0, INR Comment 1.0, Activated Partial Thromboplast Time 35, D-Dimer 3.06H, Sodium Level 139, Potassium Level 4.5, Chloride Level 103, Carbon Dioxide Level 25, Anion Gap 11, Blood Urea Nitrogen 24H, Creatinine 1.20, Estimat Glomerular Filtration Rate > 60, BUN/Creatinine Ratio 20, Glucose Level 147H, Calcium Level 9.6, Corrected Calcium 9.8, Magnesium Level 1.6L, Total Bilirubin 2.2H, Aspartate Amino Transf (AST/SGOT) 20, Alanine Aminotransferase (ALT/SGPT) 21, Alkaline Phosphatase 109, Myoglobin 125.2H, Troponin I < 0.028, B-Type Natriuretic Peptide 84.5, Total Protein 7.4, Albumin 3.8, Amylase Level 27, Lipase 35 01/01/19 18:15: Myoglobin 86.7, Troponin I < 0.028 01/01/19 23:40: Myoglobin 90.6, Troponin I < 0.028 01/02/19 03:10: White Blood Count 8.4, Red Blood Count 4.33L, Hemoglobin 13.3, Hematocrit 39L, Mean Corpuscular Volume 91, Mean Corpuscular Hemoglobin 31, Mean Corpuscular Hemoglobin Concent 34, Red Cell Distribution Width 13.0, Platelet Count 200, Mean Platelet Volume 10.4, Neutrophils (%) (Auto) 58, Lymphocytes (%) (Auto) 28 , Monocytes (%) (Auto) 13H, Eosinophils (%) (Auto) 1, Basophils (%) (Auto) 0, Neutrophils # (Auto) 4.9, Lymphocytes # (Auto) 2.4, Monocytes # (Auto) 1.1H, Eosinophils # (Auto) 0.1, Basophils # (Auto) 0.0, Sodium Level 139, Potassium Level 4.1, Chloride Level 100, Carbon Dioxide Level 27, Anion Gap 12, Blood Urea Nitrogen 25H, Creatinine 1.24, Estimat Glomerular Filtration Rate 60, BUN/ Creatinine Ratio 20, Glucose Level 132H, Calcium Level 9.0, Corrected Calcium 9.5, Total Bilirubin 1.4H, Aspartate Amino Transf (AST/SGOT) 21, Alanine Aminotransferase (ALT/SGPT) 20, Alkaline Phosphatase 100, Total Protein 6.7, Albumin 3.4, Triglycerides Level 288H, Cholesterol Level 144, LDL Cholesterol Direct 56, VLDL Cholesterol 58H, HDL Cholesterol 30L ECG Impression ECG Initial ECG Rhythm: Normal Sinus Comment Previous NE. A/P-Cardiology Assessment/Admission Diagnosis Unstable angina, Cardiomyopathy, Known history of CAD, PCI, Hypertension, hyperlipidemia, Mild pericardial effusion Plan 1. CAD/Unstable angina: Negative serial troponin. no change on EKG. However chest pain is very similar to the pain he had during his NE, however less intense. Coronary angiography is recommended. Informed consent was taken. Previous history: Status post-PCI to mid LAD and ostium of second OM with drug- eluting stents. Aspirin and Brilinta. Continue atorvastatin and beta osmar. coronary angiography was done which showed chronic total occlusion of the LAD. Chronic total occlusion of the OM 1 artery. Severe ostial OM 2 artery stenosis which was treated successfully with a drug-eluting stent. Severe distal RCA stenosis. We were not able to perform PCI to the mid LAD. Patient continued to have chest discomfort. Significantly elevated troponin. The patient was transferred to [facility] and CAR BODY INSPECTOR PCI to the LAD was done. 2. Diabetic ulcers: Ultrasound lower extremity did not show severe PAD. Likely nonvascular diabetic ulcers. 3. Cardiomyopathy: Continue beta osmar. AZEB inhibitor was discontinued due to dry cough. on valsartan. Echo 10/2018 - LVEF 45-50%. 4. Hypertension: Continue beta osmar. Continue valsartan. 5. Hyperlipidemia: On high-dose statin therapy. 6. Small pericardial effusion: follow clinically. No hemodynamic compromise. Thank you for your consultation. Please call me if you have any questions. Casper Brennan MD, FACP, FACC, FSCAI, FHRS, CCDS Interventional Cardiology Cardiac Electrophysiology Vascular Medicine and Endovascular Interventions Clinical Quality Measures AMI/AHF: ASA po Prior to arrival: Yes (81) DVT/VTE Risk/Contraindication: Risk Factor Score Per Nursin RFS Level Per Nursing on Admit: 4+=Very High Chris BRENNAN MD Jan 02, 2019 08:25
[2019-01-02] MEDS ORDERED: fentaNYL INJECTION 100 MCG/2 ML AMP ONE (08:26)
[2019-01-02] MEDS ORDERED: MIDAZOLAM 5 MG/5 ML (VERSED) VIAL ONE (08:26)
[2019-01-02] MEDS ORDERED: NS IV 1000 ML 1,000 ML ONE (08:27)
[2019-01-02] MEDS ORDERED: NS IV 1000 ML 1,000 ML IV SCH ×2 (08:45→09:49)
--- NOTE | 2019-01-02 08:52 | History & Physicial ---
History of Present Illness History of Present Illness Reason for visit/HPI PT IS A 58 Y/O MALE WHO IS KNOWN TO ME FROM CLINIC. LUIS HAD BEEN SEEN IN MY OFFICE BY THE NURSE PRACTITIONER EARLY IN THE WEEK AND APPARENTLY HE HAD ALSO SEEN HIS PLANT ENGINEERING MANAGER ON 01/01/19 WHERE HE WAS INSTRUCTED TO GO HOME AND TO TAKE NITRO AT HOME IN 5 MINUTE INTERVALS FOR A TOTAL OF THREE NITRO, AND IF HE DID NOT HAVE ANY ALLEVIATION OF HIS PAIN HE WAS TO GO TO THE ER. HE PRESENTED TO THE EMERGENCY DEPARTMENT DIRECTED BY CARDIOLOGY SINCE HIS CHEST PAIN DID NOT RESOLVE WITH THE NITROGLYCERINE. IN THE EMERGENCY DEPARTMENT HE HAD A CT ANGIOGRAM WHICH SHOWED A SMALL PERICARDIAL EFFUSION AND CARDIOLOGY WAS COMFORTABLE WITH ADMISSION TO [facility], THEREFORE HE WAS ADMITTED TO THE HOSPITAL YESTERDAY EVENING. WHEN I CAME BY TO EVALUATE PT THIS MORNING, HE WAS DOWN IN HEART POST OFFICE MANAGER. Date of Admission Jan 01, 2019 at 15:15 Date Seen by a Provider: Jan 02, 2019 Time Seen by a Provider: 08:20 I consulted on this patient on 01/02/19 08:49 Attending Physician Rosa Maria Ha MD Admitting Physician Rosa Maria Ha MD Consult Allergies and Home Medications Allergies Coded Allergies: linezolid (Verified Allergy, Unknown, 05/28/18) Home Medications Aspirin 81 Mg Tablet.dr, 81 MG PO DAILY Prescribed by: ROSA MARIA HA on 05/31/18 1042 Atorvastatin Calcium 80 Mg Tablet, 80 MG PO HS Prescribed by: ROSA MARIA HA on 05/31/18 1042 Carvedilol 6.25 Mg Tablet, 6.25 MG PO BID Prescribed by: ROSA MARIA HA on 05/31/18 1042 Cefepime HCl/D5w 2 Gm/50 Ml Piggyback, 2 GM IV BID LAST DOSE DUE ON 06/07/18 Prescribed by: RED ABREU on 05/30/18 1435 Cephalexin 500 Mg Capsule, 500 MG PO Q6H Prescribed by: EARNETS MULLINS on 10/20/18 1305 Clonazepam 1 Mg Tablet, 2 MG PO HS, (Reported) TAKES 2 (1 MG) TABLETS Duloxetine HCl 30 Mg Capsule.dr, 30 MG PO DAILY, (Reported) Insulin Aspart 100 Unit/1 Ml Susp, 10 UNIT SQ AC Prescribed by: ROSA MARIA HA on 05/31/18 1042 Insulin Glargine,Hum.rec.anlog 300 Unit/1 Ml Insuln.pen, 50 UNIT SQ DAILY, ( Reported) Metronidazole 500 Mg Tablet, 500 MG PO TID Prescribed by: ROSA MARIA HA on 05/31/18 1050 Metronidazole/Sodium Chloride 500 Mg/100 Ml Piggyback, 500 MG IV Q8HR LAST DOSE DUE ON 06/07/18 Prescribed by: RED ABREU on 05/30/18 1435 Pregabalin 50 Mg Capsule, 50 MG PO DAILY, (Reported) Ticagrelor 90 Mg Tablet, 90 MG PO BID Prescribed by: ROSA MARIA HA on 05/31/18 1042 Vancomycin HCl in Dextrose 5 % 1.25 Gm/250 Ml Plast..bag, 1.25 GM IV BID LAST DOSE DUE ON 06/07/18 Prescribed by: RED ABREU on 05/30/18 1435 Past Yketbme-Mfigdw-Gnzbdt Hx Patient Social History Alcohol Use: Denies Use Recreational Drug Use: No Smoking Status: Never a Smoker 2nd Hand Smoke Exposure: No Recent Foreign Travel: No Contact w/other who traveled: No Recent Hopitalizations: No (MAY 2018) Recent Infectious Disease Expo: No Immunizations Up To Date Tetanus Booster (TDap): Unknown Pediatric: No Date of Pneumonia Vaccine: Jan 02, 2011 Date of Influenza Vaccine: Aug 05, 2013 Seasonal Allergies Seasonal Allergies: No Surgeries Yes (ACL; Wrist; Heart stents) Abdominal, Amputation, Appendectomy, Gallbladder, Orthopedic, Tonsillectomy Respiratory No Currently Using CPAP: No Currently Using BIPAP: No Cardiovascular Yes (Heart stents) Coronary Artery Disease, Heart Attack, High Cholesterol, Hypertension Neurological Yes Neuropathy, Stroke Reproductive System Hx Reproductive Disorders: No Sexually Transmitted Disease: No HIV/AIDS: No Genitourinary No Kidney Stones Gastrointestinal Yes Abdominal Hernia Musculoskeletal Yes (OSTEOMYELITIS WITH MULTIPLE TOE AMPUTATIONS, BACK FUSION X3) Degenerate Disk Disease, Arthritis, Chronic Back Pain Endocrine History of Endocrine Disorders: Yes Endocrine Disorders: Diabetes, Insulin dep HEENT History of HEENT Disorders: No Loss of Vision: Bilateral Hearing Impairment: Denies Cancer No Psychosocial History of Psychiatric Problem: Yes Behavioral Health Disorders: Anxiety, Depression Integumentary History of Skin or Integumenta: No Blood Transfusions History of Blood Disorders: No Adverse Reaction to a Blood Tr: No Family Medical History Significant Family History: Heart Disease, Diabetes, Hypertension, Psychiatric Problems, Renal Disease, Vascular Disease Family Hx: Family history: Cardiovascular disease 19 FATHER Family history: Diabetes mellitus 19 MOTHER Physical Exam Vital Signs Vital Signs - First Documented 01/01/19 01/02/19 12:41 00:00 Temp 97.2 Pulse 91 Resp 18 B/P (MAP) 115/77 (90) Pulse Ox 99 O2 Delivery Room Air O2 Flow Rate 2.00 Capillary Refill : Less Than 3 Seconds Height, Weight, BMI Height: 6'4.00" Weight: 260lbs. 0.0oz. 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
[2019-01-02] MEDS ORDERED: ASPIRIN E.C. 81 MG (ECOTRIN) TAB PO SCH (09:00)
[2019-01-02] MEDS ORDERED: TICAGRELOR 90 MG TABLET (BRILINTA) PO ONE (09:03)
[2019-01-02] MEDS ORDERED: NITRO DRIP 25000 MCG/D5W 250 ML IV ONE (09:24)
--- NOTE | 2019-01-02 09:35 | Cardiac Procedure Note-CS/ASA ---
Pre-Procedure Note Pre-Op Procedure Note H&P Reviewed The H&P was reviewed, patient examined and no changes noted. Date H&P Reviewed: Jan 02, 2019 Time H&P Reviewed: 08:00 Conscious Sedation Pre-Proced Time 08:00 ASA Score 3 For ASA 3 and 4: Consider anesthesia and medical clearance. Also, for patients with a history of failed moderate sedation consider anesthesia. Airway Lungs Heart ASA score ASA 1: a normal healthy patient ASA 2: a patient with a mild systemic disease (mid diabetes, controlled hypertension, obesity ASA 3: a patient with a severe systemic disease that limits activity (angina , COPD, prior Myocardial infarction) ASA 4: a patient with an incapacitating disease that is a constant threat to life (CHF, renal failure) ASA 5: a moribund patient not expected to survive 24 hrs. (ruptured aneurysm) ASA 6: a declared brain- patient whose organs are being harvested. For emergent operations, add the letter E after the classification Mallampati Classification Grade 1 Sedation Plan Analgesia, Amnesia, Plan communicated to team members, Discussed options with patient/fam, Discussed risks with patient/fam The patient is an appropriate candidate to undergo the planned procedure, sedation, and anesthesia. The patient immediately re-assessed prior to indication. Chris RANKIN MD Jan 02, 2019 09:35
--- NOTE | 2019-01-02 09:49 | Coronary Angiography & PCI ---
Coronary Angiography & PCI DATE OF PROCEDURE: 01/02/19 INDICATION: Unstable angina. PREOPERATIVE DIAGNOSIS: Unstable angina. POSTOPERATIVE DIAGNOSIS: Severe distal RCA stenosis, treated successfully with drug-eluting stent. HISTORY: This is a 58-year-old gentleman with previous history of acute IA. PCI to OM 2 with drug-eluting stent. Occluded OM1. PCI to mid LAD with drug- eluting stent. A moderate lesion in distal RCA was left alone. Mild ischemic cardiomyopathy with an EF of 45 percent. Patient was on optimal medical therapy including dual antiplatelet therapy but presented with prolonged episode of chest pain not responding to 3 nitroglycerin. Therefore, the patient was scheduled for coronary angiography. PROCEDURES PERFORMED: 1.Coronary angiography. 2.Left heart catheterization. 3.PCI to the distal RCA with drug-eluting stent. COMPLICATIONS: None. SPECIMENS: None. ESTIMATED BLOOD LOSS: 10 mL ANESTHESIA: Conscious sedation ANTICOAGULATION: IV heparin CONTRAST: 109ml. FLUOROSCOPY: 9.6 minutes. FLOUROSCOPY DOSE: 2038 mgy. PROCEDURE DETAILS: The patient is a 58 male and was brought to the cath lab manager after informed consent was taken. All the risks and complications were explained in detail; this included the risk of bleeding, vascular damage, stroke , IA and even . The patient was draped and prepped in the usual sterile fashion. Cem's test was abnormal, therefore, access was gained in the right femoral artery with a 5 Cambodian sheath. Coronary angiography and left heart catheterization was performed with JR4 and JL4 catheter. FINDINGS: 1.Left main: Patent. 2.LAD: Patent stent with mild in-stent restenosis. 3.Left circumflex artery: Occluded OM1, supplied by left to left collaterals. This is known occluded artery. Patent stent in OM 2 with no ISR. 4.RCA: Severe distal RCA stenosis with stenosis severity of 90 percent. Mild to moderate ostial PL and PDA disease. RCA is a dominant artery. 5.Left heart catheterization: LV pressure 116/10 mmHg. LVEDP 15 mmHg. Aortic pressure 107/70 mmHg. Mild LV systolic dysfunction with an EF of 45-50 percent with mild apical hypokinesis. No gradient across the aortic valve. RECOMMENDATIONS: PCI with drug-eluting stent to the distal RCA is recommended. INTERVENTION DETAILS: The sheath was upsized to a 6 Cambodian sheath. A JR4 guide catheter, BMW guidewire, IV heparin for anticoagulation. ACT was done once which was 253 seconds. The lesion was crossed with the BMW wire and the tip of the wire was placed in the distal PDA. Direct stenting was done with a resolute integrity 2.75 x 14 mm stent at 12 bibiana for 32 seconds. Postdilatation was done twice at 16 bibiana for 26 seconds and 20 bibiana for 66 seconds. Excellent results with no significant residual stenosis. Mild to moderate PDA disease was left alone. Mild spasm which improved with 200 g of IC nitroglycerin. Right femoral artery was closed with a mynx device. She tolerated the procedure well and did not have any complications. CONCLUSIONS: 1. Severe distal RCA stenosis treated successfully with a drug-eluting stent. Mild to moderate PDA disease left alone. 2. Mild in-stent restenosis in the LAD stent. Patent stent in the OM 2 artery. 3. Mild LV systolic dysfunction with apical hypokinesis. 4. Continue long-term dual antiplatelet therapy. Angiotensin receptor osmar , beta osmar and high-dose statin therapy. Casper Brennan MD, FACP, FACC, [facility] Interventional Cardiology Chris BRENNAN MD Jan 02, 2019 09:49
[2019-01-02] MEDS ORDERED: PATIENT MAY USE OWN MEDS, ALL PO SCH (10:00)
[2019-01-02] MEDS ORDERED: VALS80TA31 PO ×2 (11:08→14:02)
--- NOTE | 2019-01-02 13:03 | NUR ---
Initial visit: rapport established during prior admission. Pt expressed gratitude that I came to visit; he expressed hopes of not having an extended stay. Pt shared feelings emotionally fatigued and states he is trying to sleep as much as possible to pass the time. At close of the visit pt expressed he felt better and appreciated getting to talk.
[2019-01-02] MEDS ORDERED: NON-FORMULARY MEDICATION 1 EA EA (Cephalexin (Keflex) 500 MG) PO SCH (13:15)
[2019-01-02] MEDS ORDERED: AMOX1TAB11 PO (14:02)
[2019-01-02] MEDS ORDERED: INSU100I14 SC (14:02)
[2019-01-02] MEDS ORDERED: INSU200I4 SC (14:02)
[2019-01-02] MEDS ORDERED: ATOR80TA64 PO (14:02)
[2019-01-02] MEDS ORDERED: PANT40TA3 PO (14:02)
[2019-01-02] MEDS ORDERED: MULT-633 PO (14:05)
[2019-01-02] MEDS ORDERED: ACET-2267 PO (14:09)
--- NOTE | 2019-01-02 14:17 | NUR ---
PATIENT HAD HIS MEDICATIONS BOTTLES WITH THIM. WE WENT OVER THE EXT MED HX AND HE VERIFIED HOW HE TAKES THEM. HE FILLED CYMBALTA ON 12-08-18 AND THE BOTTLE IS IN HIS BAG HOWEVER HE STATES HE HAS NOT BEEN TAKING IT. HIS CLONAZEPAM WAS FILLED IN SEPTEMBER FOR 1 Q8H PRN, HE STATES HE TAKES 2 AT HS ONLY. HE TAKES 2 EXTRA STRENGTH TYLENOL HS, ASPIRIN 81MG DAILY, AND A MTV DAILY OTC. HE FILLED SOME INHALERS IN NOVEMBER AND HE STATES THAT WAS A ONE TIME THING FOR A RESPIRATORY ILLNESS AND HE DOES NOT TAKE THEM NORMALLY.
[2019-01-02] MEDS ORDERED: INSULIN VIAL ASPART for PUMP 100 UNIT/ML VIAL SQ SCH (16:00)
[2019-01-02] MEDS: AUGMENTIN 500 MG TAB (AMOXICILLIN/CLAVULANATE) PO SCH ×2 (16:07→22:22)
--- NOTE | 2019-01-02 16:25 | NUR ---
bedside report given to Barbie VIVAR
--- NOTE | 2019-01-02 16:25 | NUR ---
REPORT RECEIVED FROM GHAZALA VALERA ICU. PT TO ROOM 422 WITH PERSONAL BELONGINGS. 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 3 HOME MEDICATIONS IN LOCKED CABINET IN [facility] ROOM. RIGHT GROIN DRESSING DRY AND INTACT. THIS RN AND GHAZALA ALMONTE WILL ASSUME PT CARE AT THIS TIME.
[2019-01-02] MEDS: inSUlin ASPART (NovoLOG) 1 UNIT/0.01 ML (CHARGE PER UNIT) SC SCH (18:34)
[2019-01-02] MEDS ORDERED: clonazePAM 1 MG (KlonoPIN) TAB PO SCH (21:00)
[2019-01-02] MEDS ORDERED: ACETAMINOPHEN 500 MG TAB (TYLENOL) PO SCH (21:00)
[2019-01-02] MEDS ORDERED: TICAGRELOR 90 MG TABLET (BRILINTA) PO SCH (21:00)
[2019-01-02] MEDS ORDERED: PREGABALIN 50 MG (LYRICA) CAP PO SCH (21:00)
[2019-01-02] MEDS ORDERED: ATORVASTATIN 80 MG (LIPITOR) TABLET PO SCH (21:00)
[2019-01-02] MEDS: TICAGRELOR 90 MG TABLET (BRILINTA) PO SCH (22:23)
[2019-01-02] MEDS: CARVEDILOL 6.25 MG (COREG) TAB PO SCH (22:25)
[2019-01-03 00:05] VITALS: BP 134/60
[2019-01-03 04:15] VITALS: BP 105/67
--- NOTE | 2019-01-03 06:25 | NUR ---
pt FSBS 167mg/dl. pt states wants insulin given when he eats breakfast.
[2019-01-03] MEDS: CATHETER FLUSH 10 ML SYR IV SCH ×2 (06:26→14:12)
[2019-01-03 06:43] LABS: MEAN PLATELET VOLUME 10.7 FL (7.4-10.4); RED CELL DISTRIBUTION WIDTH 12.3 % (10.0-14.5); WHITE BLOOD COUNT 8.2 10^3/uL (4.3-11.0)
[2019-01-03] MEDS ORDERED: MULTIVIT W/MINERALS TAB (THERAGRAN M) PO SCH (07:00)
[2019-01-03 07:08] LABS: BUN/CREATININE RATIO 21; CALCIUM 8.3 MG/DL (8.5-10.1); CARBON DIOXIDE 23 MMOL/L (21-32); CHLORIDE 102 MMOL/L (98-107); CREATININE SERUM 1.08 MG/DL (0.60-1.30); GFR ESTIMATED > 60; GLUCOSE 155 MG/DL (70-105); POTASSIUM 3.5 MMOL/L (3.6-5.0); SODIUM 136 MMOL/L (135-145)
[2019-01-03 08:00] VITALS: BP 92/61
[2019-01-03] MEDS ORDERED: VALSARTAN 80 MG (DIOVAN) TAB PO SCH (09:00)
[2019-01-03] MEDS ORDERED: DULoxetine 30 MG (CYMBALTA) CAP PO SCH (09:00)
[2019-01-03] MEDS ORDERED: [UNRECOGNIZED DRUG - OTHER] SQ SCH (09:00)
[2019-01-03] MEDS ORDERED: VALSARTAN 80 MG PO SCH (09:00)
[2019-01-03] MEDS ORDERED: INSULIN GLARGINE HUM REC ANLOG 50 UNIT SQ SCH (09:00)
[2019-01-03] MEDS ORDERED: NON-FORMULARY MEDICATION 1 EA EA (Atorvastatin Calcium (Lipitor) 80 MG) PO SCH (09:00)
[2019-01-03] MEDS ORDERED: ASPIRIN E.C. 81 MG (ECOTRIN) TAB PO SCH ×2 (09:00)
[2019-01-03] MEDS ORDERED: PANTOPRAZOLE 40 MG (PROTONIX) TAB PO SCH (09:00)
[2019-01-03] MEDS ORDERED: N SQ SCH (09:00)
[2019-01-03 09:14] VITALS: BP 108/68
[2019-01-03] MEDS: CARVEDILOL 6.25 MG (COREG) TAB PO SCH (09:18)
[2019-01-03] MEDS: TICAGRELOR 90 MG TABLET (BRILINTA) PO SCH (09:26)
--- NOTE | 2019-01-03 09:30 | NUR ---
NOTIFIED DR. RANKIN OF DECREASED B/P, REC'D ORDERS TO HOLD DIOVAN THIS AM. NOTIFIED PT. PT DENIES DIZZY OR LIGHT HEADED. PT SITTING UP ON SIDE OF BED EATING BREAKFAST
[2019-01-03] MEDS: AUGMENTIN 500 MG TAB (AMOXICILLIN/CLAVULANATE) PO SCH ×2 (09:40→13:55)
[2019-01-03] MEDS: inSUlin ASPART (NovoLOG) 1 UNIT/0.01 ML (CHARGE PER UNIT) SC SCH ×2 (09:41→13:34)
[2019-01-03] MEDS ORDERED: VALS80TA31 PO (09:53)
[2019-01-03] MEDS ORDERED: Nitroglycerin SL (09:53)
--- NOTE | 2019-01-03 09:55 | Discharge Inst-Complex ---
PDI Med Rec & Follow Up Appt. New Medications: [Nitroglycerin] () 0.4 MG BTL 0 MG SL UD PRN for CHEST PAIN, #10 TAB Changed Medications: Valsartan (Valsartan) 80 Mg Tablet 40 MG PO DAILY, #30 TAB 3 Refills (Changed from: Refills: ; TAKES 1/2 (80MG) TABLET) TAKES 1/2 (80MG) TABLET -take bp prior to medication and hold if blood pressure is less than 110 on top number Continued Medications: Acetaminophen (Tylenol Extra Strength) 500 Mg Tablet 1000 MG PO HS, TAB TAKES 2 (500MG) TABLETS Amoxicillin/Potassium Clav (Amox Tr-K Clv 500-125 mg Tab) 1 Each Tablet 1 TAB PO TID for 10 Days, TAB 10 DAY THERAPY FILLED 12-26-18 Aspirin (Aspirin EC) 81 Mg Tablet.dr 81 MG PO DAILY, #100 TAB 3 Refills Atorvastatin Calcium (Lipitor) 80 Mg Tablet 80 MG PO DAILY, TAB Carvedilol (Carvedilol) 6.25 Mg Tablet 6.25 MG PO BID, #30 TAB 6 Refills Clonazepam (Clonazepam) 1 Mg Tablet 2 MG PO HS, TAB TAKES 2 (1 MG) TABLETS Insulin Aspart (Novolog Flexpen) 300 Units/3 Ml Solution 10 UNITS SC TIDAC, EA Insulin Degludec (Tresiba Flextouch U-200) 200 Unit/1 Ml Insuln.pen 50 UNITS SC DAILY, EA Multivitamin (Daily Value) 1 Each Tablet 1 TAB PO DAILY, TAB Pantoprazole Sodium (Pantoprazole Sodium) 40 Mg Tablet.dr 40 MG PO DAILY, TAB Pregabalin (Lyrica) 50 Mg Capsule 50 MG PO HS, CAP Ticagrelor (Brilinta) 90 Mg Tablet 90 MG PO BID, #30 TAB 6 Refills Prescription: Call to Patients Pharmacy Activity, Diet and PDI Resume Normal Activity: Yes Discharge Diet: ADA Diet, Low Fat/Low Cholesterol Drink 6-8 Glasses of Fluid/Day: Yes Driving Instructions: No Driving for 24 Hours Return to The Hospital For: any concern for lifethreatening illness or injury Symptoms to Reoprt to : Fever Over 101 Degrees F, Pain/Pressure in Chest, Questions/Concerns, Shortness of Breath, Weight Gain Over 2 Pounds For Problems or Questions: Contact Your Physician, Go to Emergency Room ROSA MARIA PRADO MD Jan 03, 2019 09:55
--- NOTE | 2019-01-03 10:52 | Cardiology Progress Note ---
Cardiology SOAP Progress Note Subjective: No Cardiac complaints. Objective: I&O/Vital Signs 01/02/19 01/03/19 01/03/19 01/03/19 23:23 00:05 01:00 04:15 Temp 98.7 97.8 Pulse 107 87 96 88 Resp 16 20 B/P (MAP) 134/60 (84) 105/67 (80) Pulse Ox 93 92 O2 Delivery Room Air 01/03/19 01/03/19 01/03/19 07:00 08:00 09:14 Temp 98.3 Pulse 91 91 89 Resp 16 20 B/P (MAP) 92/61 (71) 108/68 (81) Pulse Ox 98 96 O2 Delivery Nasal Cannula Room Air O2 Flow Rate 2.00 01/03/19 00:00 Intake Total 850 ml Output Total 650 ml Balance 200 ml Weight (Pounds): 260 Weight (Ounces): 0.0 Weight (Calculated Kilograms): 117.489215 Constitutional: appears stated age, AAO x 3; No apparent distress; well- developed, well-nourished Respiratory: No accessory muscle use, No respiratory distress, No chest tender , No chest expansion is symmetric; chest is bilaterally symmetric; No lungs clear to percussion; lungs clear to auscultation; No crackles, No rhonchi, No rales, No stridor, No wheezing, No pleural rub, No other Cardiovascular: regular rate-rhythm; No irregularly irregular, No extra beats, No parasternal heave is noted, No JVD, No edema, No bradycardia, No tachycardia , No point of maximal impulse, No cardiac thrills are palpable; S1 and S2; No gallop/S3, No gallop/S4, No diastolic murmur, No systolic murmur, No friction rub, No click, No other Gastrointestional: No tender, No soft, No round, No distended, No pulsatile mass, No organomegaly, No guarding, No rebound, No tenderness, No hernia, No mass, No audible bowel sounds, No abnormal bowel sounds, No abdominal bruits, No spleenomegaly, No other Extremities: No normal range of motion, No non-tender, No normal inspection, No pedal edema, No calf tenderness, No normal capillary refill, No pelvis stable , No calf tenderness, No inflammation, No pedal edema, No slow capillary refill , No swelling, No other, No abrasion, No clubbing, No cyanosis, No ecchymosis, No laceration, No no lower extremity edema bilateral, No significant edema, No tenderness, No wound Neurologic/Psychiatric: no motor/sensory deficits, alert, normal mood/affect, oriented x 3, power is 5/5 both on sides Skin: No normal color, No warm/dry, No cyanosis, No cool, No diaphoresis, No damp, No ecchymosis, No jaundice, No mottled, No pallor, No rash, No tattoos/ piercings, No ulcerations, No rash on exposed areas, No ulcerations on exposed areas, No other Results/Procedures: Labs Laboratory Tests 01/02/19 18:34: Glucometer 135H 01/03/19 05:49: White Blood Count 8.2, Red Blood Count 3.91L, Hemoglobin 12.0L, Hematocrit 36L, Mean Corpuscular Volume 91, Mean Corpuscular Hemoglobin 31, Mean Corpuscular Hemoglobin Concent 34, Red Cell Distribution Width 12.3, Platelet Count 171, Mean Platelet Volume 10.7H, Sodium Level 136, Potassium Level 3.5L, Chloride Level 102, Carbon Dioxide Level 23, Anion Gap 11, Blood Urea Nitrogen 23H, Creatinine 1.08, Estimat Glomerular Filtration Rate > 60, BUN/Creatinine Ratio 21, Glucose Level 155H, Calcium Level 8.3L 01/03/19 06:23: Glucometer 167H A/P: Assessment/Dx: Unstable angina, Cardiomyopathy, Known history of CAD, PCI, Hypertension, hyperlipidemia, Mild pericardial effusion Plan: 1. CAD/Unstable angina: Negative serial troponin. no change on EKG. However chest pain is very similar to the pain he had during his GA, however less intense. Coronary angiography done 01/02/2019 which showed mild in-stent restenosis in the LAD stent. Patent stent in the OM 2 artery. Severe distal RCA stenosis treated successfully with a drug-eluting stent. Continue dual antiplatelet therapy for at least a year. Previous history: Status post-PCI to mid LAD and ostium of second OM with drug- eluting stents. Aspirin and Brilinta. Continue atorvastatin and beta osmar. coronary angiography was done which showed chronic total occlusion of the LAD. Chronic total occlusion of the OM 1 artery. Severe ostial OM 2 artery stenosis which was treated successfully with a drug-eluting stent. Severe distal RCA stenosis. We were not able to perform PCI to the mid LAD. Patient continued to have chest discomfort. Significantly elevated troponin. The patient was transferred to [facility] and HOME IMPROVEMENT ADVISOR PCI to the LAD was done. 2. Diabetic ulcers: Ultrasound lower extremity did not show severe PAD. Likely nonvascular diabetic ulcers. 3. Cardiomyopathy: Continue beta osmar. AZEB inhibitor was discontinued due to dry cough. on valsartan. Echo 10/2018 - LVEF 45-50%. 4. Hypertension: Continue beta osmar. Continue valsartan. 5. Hyperlipidemia: On high-dose statin therapy. 6. Small pericardial effusion: follow clinically. No hemodynamic compromise. Okay to discharge, follow-up in cardiology office in 2-3 weeks. Thank you for your consultation. Please call me if you have any questions. Casper Brennan MD, FACP, FACC, FSCAI, FHRS, CCDS Interventional Cardiology Cardiac Electrophysiology Vascular Medicine and Endovascular Interventions Clinical Quality Measures AMI/AHF: ASA po Prior to arrival: Yes (81) Chris BRENNAN MD Jan 03, 2019 10:52 am
--- NOTE | 2019-01-03 10:53 | Discharge Inst-Post CATH ---
Discharge Inst-CATH/EP Post Cardiac Cath/EP D/C Inst Follow Up/Plan Dr. Brennan in 2-3 weeks. CARDIAC CATH DISCHARGE INSTRUCTIONS *Hold Metformin for 48 hours post heart cath. ACTIVITY * Go Home directly and rest. * Limit activity of the leg (or wrist if it was used) for 7 days including aerobics, swimming, jogging, bicycling, etc. * Restrict stair-climbing for 7 days if possible, if not, climb up with your non -cath leg, then bring together on the same step. * Avoid lifting, pushing, pulling or excessive movement of the affected extremity for 7 days. * Customary sexual activity may be resumed after 2 days-use caution not to use a position that strains or causes pain to the affected extremity. * No driving for 24 hours. * NO SMOKING. * Avoid straining for bowel movements for 7 days. * Gentle walking on level ground is allowed. * Returning to work will depend on the type of procedure and the results. Your doctor will discuss this with you. CALL YOUR DOCTOR FOR ANY OF THE FOLLOWING: *If bleeding from the puncture site occurs- Apply gentle pressure to site with clean cloth and call your doctor or EMS. * If a knot or lump forms under the skin, increases in size, or causes pain. * If bruising appears to be worsening or moving further down your leg instead of disappearing. * Temperature above 101 F. CARE OF YOUR GROIN INCISION; * Bruising or purple discoloration of the skin near the puncture site is common. * You may shower only, no bathtub bathing for 5 days. Be careful to avoid slipping as your leg may feel stiff. * If a closure device was used on your femoral artery, please see the attached guide regarding care of the device and your leg. * Leave the dressing on, until removed by office staff. CARE OF YOUR WRIST INCISION; * Bruising or purple discoloration of the skin near the puncture site is common. * You may shower. * DO NOT submerge wrist. * Leave dressing on, until removed by office staff.. Chris BRENNAN MD Jan 03, 2019 10:53 am
--- NOTE | 2019-01-03 13:31 | NUR ---
Pt is Confucianist. Marketing Segment Manager provided prayer and Communion.
[2019-01-03 13:50] VITALS: BP 116/67
[2019-01-03 16:30] VITALS: BP 116/67
--- NOTE | 2019-01-03 17:15 | NUR ---
Electrical Cad TechnicianNeida Bassett states that she saw pt leave w his black bag, & go down the stairs around 1630. Pt had been told twice at least to turn meter maintenance person lt, & inform this RN when his got here to take him home. Pt's works here [place] [employer] & she was going to picker and packer pt after work. This RN had already given pt discharge instructions, in red folder, & reviewed them w him, he verbalized understanding.
== END 2019-01-03 16:30 | disposition home or self-care (01) ==
LOC: EDUNIT# 12:41 → ER 12:44 → ICU 15:15 → 4TH 01-02 16:13
PROVIDERS: ADMIT Family Medicine; ATTEND Family Medicine
DX: I25.110 Atherosclerotic heart disease of native coronary artery with unstable angina pectoris (principal); Z95.5 Presence of coronary angioplasty implant and graft; I42.9 Cardiomyopathy, unspecified; I10 Essential (primary) hypertension; E78.5 Hyperlipidemia, unspecified; I31.3 Pericardial effusion (noninflammatory); E78.00 Pure hypercholesterolemia, unspecified; I25.2 Old myocardial infarction; E11.42 Type 2 diabetes mellitus with diabetic polyneuropathy; F41.9 Anxiety disorder, unspecified; F32.9 Major depressive disorder, single episode, unspecified; E11.51 Type 2 diabetes mellitus with diabetic peripheral angiopathy without gangrene; E11.622 Type 2 diabetes mellitus with other skin ulcer; L97.909 Non-pressure chronic ulcer of unspecified part of unspecified lower leg with unspecified severity; Z79.899 Other long term (current) drug therapy; Z79.02 Long term (current) use of antithrombotics/antiplatelets; Z79.82 Long term (current) use of aspirin; Z79.4 Long term (current) use of insulin; Z98.1 Arthrodesis status; Z89.429 Acquired absence of other toe(s), unspecified side; Z87.442 Personal history of urinary calculi
CPT/HCPCS: 36415; 71045; 71275; 80048; 80053; 80061; 82150; 82962; 83690; 83735; 83874; 83880; 84484; 85025; 85027; 85347; 85379; 85610; 85730; 93005; 93041; 93306; 93458; 96374

== ENCOUNTER 2019-03-10 08:23 | Emergency (ER) | payer OTHER ==
[~2019-03-10] VITALS: Ht 193 cm; Wt 115.7 kg
[~2019-03-10 08:23] MED LIST changes: +AMOX1TAB11 PO; +ATOR80TA64 PO; +INSU100I14 SC; +INSU200I4 SC; +MULT-633 PO; +Nitroglycerin SL; +PANT40TA3 PO; +VALS80TA31 PO
[2019-03-10] MEDS ORDERED: ASPIRIN 81 MG CHEW (CHILDREN'S ASA) ONE (08:43)
[2019-03-10] MEDS ORDERED: ASPIRIN 81 MG CHEW (CHILDREN'S ASA) PO ONE (08:45)
[2019-03-10 08:51] LABS: BASOPHILS % (AUTO) 0 % (0-10); EOSINOPHILS # (AUTO) 0.1 10^3/uL (0.0-0.3); EOSINOPHILS % (AUTO) 1 % (0-10); HEMATOCRIT 47 % (40-54); HEMOGLOBIN 16.2 G/DL (13.3-17.7); LYMPHOCYTES # (AUTO) 2.5 X 10^3 (1.0-4.0); LYMPHOCYTES % (AUTO) 40 % (12-44); MEAN CORPUSCULAR HEMOGLOBIN 30 PG (25-34); MEAN CORPUSCULAR HGB CONC 35 G/DL (32-36); MEAN CORPUSCULAR VOLUME 87 FL (80-99); MEAN PLATELET VOLUME 10.5 FL (7.4-10.4); MONOCYTES # (AUTO) 0.6 X 10^3 (0.0-1.0); MONOCYTES % (AUTO) 9 % (0-12); NEUTROPHILS # (AUTO) 3.1 X 10^3 (1.8-7.8); NEUTROPHILS % (AUTO) 50 % (42-75); PLATELET COUNT 153 10^3/uL (130-400); RED CELL DISTRIBUTION WIDTH 13.6 % (10.0-14.5); WHITE BLOOD COUNT 6.2 10^3/uL (4.3-11.0)
[2019-03-10 09:04] LABS: INR 0.9 (0.8-1.4); PROTHROMBIN TIME PATIENT 12.6 SEC (12.2-14.7)
[2019-03-10 09:15] LABS: ALANINE AMINOTRANSFERASE 50 U/L (0-55); ALBUMIN 4.1 GM/DL (3.2-4.5); ALKALINE PHOSPHATASE 89 U/L (40-136); BILIRUBIN,TOTAL 1.3 MG/DL (0.1-1.0); BUN/CREATININE RATIO 15; CALCIUM 9.7 MG/DL (8.5-10.1); CARBON DIOXIDE 25 MMOL/L (21-32); CHLORIDE 105 MMOL/L (98-107); CREATININE SERUM 1.06 MG/DL (0.60-1.30); GFR ESTIMATED > 60; GLUCOSE 110 MG/DL (70-105); MAGNESIUM 2.2 MG/DL (1.8-2.4); POTASSIUM 4.4 MMOL/L (3.6-5.0); SODIUM 141 MMOL/L (135-145); TOTAL PROTEIN 7.6 GM/DL (6.4-8.2)
--- OUTSIDE RECORDS SUMMARY | 2019-03-10 09:21 | XMS REPORT | Clinical Summary ---
Author Author [facility] Organization [facility] Address Unknown Phone Unavailable Care Team Providers Care Cnc Mill Programmer Name Role Phone Gordo Ferguson MD Unavailable Gildardo Craig MD PCP Georgina Roberts RN Unavailable Unavailable Bren Howard RN Unavailable Unavailable Rohini Muniz DO Unavailable Unavailable Source Comments Some departments are not documenting in the electronic medical record. If you do not see the information that you expected, contact Release of Information in the Health Information Management department at [phone] for further assistance in locating additional records.[facility] [...] Taken Vital Sign Reading 11/17/2013 3:22 PM GREEN CHAIN MARKER Blood Pressure 146/79 11/17/2013 3:22 PM GREEN CHAIN MARKER Pulse 100 11/17/2013 3:22 PM GREEN CHAIN MARKER Temperature 36.2 C (97.1 F) 11/17/2013 3:22 PM GREEN CHAIN MARKER Respiratory Rate 20 09/20/2013 9:44 PM GREEN CHAIN MARKER Oxygen Saturation 99% - Inhaled Oxygen - Concentration 11/17/2013 3:22 PM GREEN CHAIN MARKER Weight 116.1 kg (256 lb) 11/17/2013 3:22 PM GREEN CHAIN MARKER Height 188 cm (6' 2") 11/17/2013 3:22 PM GREEN CHAIN MARKER Body Mass Index 32.87 Plan of Treatment Health Maintenance Due Date Last Done Comments HEPATITIS C SCREENING 1962 PHYSICAL (COMPREHENSIVE) 1969 EXAM HIV SCREENING 1977 DTAP/TDAP VACCINES (1 - 1980 Tdap) COLORECTAL CANCER 2012 SCREENING SHINGLES RECOMBINANT 2012 VACCINE (1 of 2) INFLUENZA VACCINE 08/05/2019 08/31/2013 Results Not on filefrom Last 3 Months Advance Directives Patient has advance care planning documents, and code status on file. For more information, please contact: [facility] [address] [place] [address] Date Inactivated Comments Code Status Date Activated 09/08/2013 6:52 PM Full Code 08/30/2013 11:52 PM Provider has discussed Code Status Yes w/Patient or Family? 08/16/2013 7:47 PM Full Code 08/13/2013 5:24 PM Provider has discussed Code Status Yes w/Patient or Family?
--- OUTSIDE RECORDS SUMMARY | 2019-03-10 09:22 | XMS REPORT | CCD ---
Author Author Madeline Kennedy MD, [facility] Address [address] [place] [address] Phone Care Team Providers Care Proof Sorter Name Role Phone PP Unavailable CCM Unavailable Summary Purpose Interface Exchange Insurance Providers Payer name Policy type / Coverage type Covered green party ID Effective Begin Date Effective End Date Blue Cross Blue Shield [facility] Blue Cross/Blue Shield [id number] Unknown Family history Father Diagnosis Age At Onset Hyperlipidemia Unknown Heart Attack Unknown Mother Diagnosis Age At Onset Hypertension Unknown Social History Social History Element Codes Description Effective Dates Marital status Unknown Mignon 01/20/2016 Number of children Unknown 4 01/20/2016 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/[address]: 097791965 Never smoker 01/20/[address]: 301855503 Never drinks alcohol 01/20/2016 Allergies, Adverse Reactions, Alerts Allergies, Adverse Reactions, Alerts data not found Past Medical History Illness Codes Condition Status Onset Date Resolved Date Insect bite (nonvenomous) of abdominal wall, initial encounter ICD-9: 911.4 ICD-10: S30.861A Active 05/17/2017 Unknown Type 2 diabetes mellitus with hyperglycemia ICD-9: 250.00 ICD-10: E11.65 Active 06/21/2016 Unknown Diabetes Unknown Active 05/04/2017 Unknown Allergic contact dermatitis due to plants, except food ICD-9: 692.6 ICD-10: L23.7 Active 01/19/2016 Unknown Essential (primary) hypertension ICD-9: 401.1 ICD-10: I10 Active 03/01/2017 Unknown Cough ICD-9: 786.2 ICD-10: R05 Active 02/16/2017 Unknown Acute recurrent maxillary sinusitis ICD-9: 461.0 ICD-10: J01.01 Active 02/16/2017 Unknown Nasal congestion ICD-9 : 478.19 ICD-10: R09.81 Active 02/16/2017 Unknown Disorientation, unspecified ICD-9: 293.0 ICD-10: R41.0 Active 01/29/2017 Unknown Muscle weakness (generalized) ICD-9: 728.87 ICD-10: M62.81 Active 01/29/2017 Unknown Cellulitis of right lower limb ICD-9: 682.7 ICD-10: L03.115 Active 10/12/2016 Unknown Pain in left foot ICD- 9: 729.5 ICD-10: M79.672 Active 10/08/2016 10/09/2016 Pain in right foot ICD -9: 729.5 ICD-10: M79.671 Active 10/08/2016 Unknown Type 2 diabetes mellitus with foot ulcer ICD-9: 250.80 ICD-10: E11.621 Active 10/08/2016 Unknown Low back pain ICD-9: [...] Problems Condition Codes Effective Dates Condition Status Insect bite (nonvenomous) of abdominal wall, initial encounter ICD-9: 911.4 ICD-10: S30.861A 05/17/2017 Active Type 2 diabetes mellitus with hyperglycemia ICD-9: 250.00 ICD-10: E11.65 06/21/2016 Active Diabetes Unknown 05/04/2017 Active Allergic contact dermatitis due to plants, except food ICD-9: 692.6 ICD-10: L23.7 01/19/2016 Active Essential (primary) hypertension ICD-9: 401.1 ICD-10: I10 03/01/2017 Active Cough ICD-9: 786.2 ICD-10: R05 02/16/2017 Active Acute recurrent maxillary sinusitis ICD-9: 461.0 ICD-10: J01.01 02/16/2017 Active Nasal congestion ICD-9 : 478.19 ICD-10: R09.81 02/16/2017 Active Disorientation, unspecified ICD-9: 293.0 ICD-10: R41.0 01/29/2017 Active Muscle weakness (generalized) ICD-9: 728.87 ICD-10: M62.81 01/29/2017 Active Cellulitis of right lower limb ICD-9: 682.7 ICD-10: L03.115 10/12/2016 Active Pain in left foot ICD- 9: 729.5 ICD-10: M79.672 10/08/2016 Active Pain in right foot ICD -9: 729.5 ICD-10: M79.671 10/08/2016 Active Type 2 diabetes mellitus with foot ulcer ICD-9: 250.80 ICD-10: E11.621 10/08/2016 Active Low back pain ICD-9: 724.2 [...] Status Fill Instructions doxycycline hyclate 100 mg capsule RxNorm: 7880597 1 Capsule(s) PO BID 05/17/2017 05/21/2017 Active doxycycline hyclate 100 mg capsule RxNorm: 2477927 1 Capsule(s) PO BID 05/11/2017 05/16/2017 Inactive losartan 25 mg tablet RxNorm: 694698 1 Tablet(s) PO daily 201606/28/2017 Active atorvastatin 40 mg tablet RxNorm: 029476 1 Tablet(s) PO daily 03/01/2017 08/27/2017 Active clopidogrel 75 mg tablet RxNorm: 132832 1 Tablet(s) PO daily 08/27/2017 Active Flonase Allergy Relief 50 mcg/actuation nasal spray, suspension RxNorm: 1422105 2 [place] NASAL daily 02/16/20172016 Inactive Augmentin 875 mg-125 mg tablet RxNorm: 390940 1 Tablet(s) PO BID 02/16/2017 02/22/2017 Inactive GET PROBIOTIC TO TAKE WHILE ON ABX Tamiflu 75 mg capsule RxNorm: 440084 1 Capsule(s) PO BID 201602/20/2017 Inactive ceftriaxone 500 mg solution for injection RxNorm: 3282669 1 Milliliter(s) Inj 02/16/2017 02/16/2017 Inactive Kenalog 40 mg/mL suspension for injection RxNorm: 3909646 1 Milliliter(s) Inj 02/16/2017 02/16/2017 Inactive Toujeo SoloStar 300 unit/mL (1.5 mL) subcutaneous insulin pen RxNorm: 1021158 25 Unit(s) SQ QAM 02/12/2017 06/10/2017 Active Toujeo SoloStar 300 unit/mL (1.5 mL) subcutaneous insulin pen RxNorm: 1664922 10 Unit(s) SQ QAM 02/05/2017 02/11/2017 Inactive lisinopril 10 mg tablet RxNorm: 906597 1 Tablet(s) PO daily 02/28/2017 Inactive atorvastatin 40 mg tablet RxNorm: 901016 1 Tablet(s) PO daily 02/01/2017 02/28/2017 Inactive doxycycline hyclate 100 mg capsule RxNorm: 3867916 1 Capsule(s) PO BID 02/01/2017 02/10/2017 Inactive clonazepam 1 mg tablet RxNorm: 058396 1 Tablet(s) PO Q8 as needed 10/09/2016 01/06/2017 Inactive ceftriaxone 1 gram solution for injection RxNorm: 7929319 Inj 10/06/2016 10/06/2016 Inactive cyclobenzaprine 10 mg tablet RxNorm: 836955 1/2-1 Tablet(s) PO TID PRN 07/18/2016 01/28/2017 Inactive clonazepam 1 mg tablet RxNorm: 470289 1 Tablet(s) PO Q8 as needed 05/31/2016 05/29/2016 Inactive clonazepam 1 mg tablet RxNorm: 010532 1 Tablet(s) PO Q8 as needed 05/31/2016 08/28/2016 Inactive Toujose SoloStar 300 unit/mL (1.5 mL) subcutaneous insulin pen RxNorm: 9799549 10 Unit(s) SQ daily 05/23/2016 01/28/2017 Inactive Crestor 10 mg tablet RxNorm: 646756 1 Tablet(s) PO QHS 201501/28/2017 Inactive Crestor 10 mg tablet RxNorm: 777185 1 Tablet(s) PO QHS 201505/18/2016 Inactive clonazepam 1 mg tablet RxNorm: 445846 1 Tablet(s) PO Q8 as needed 04/25/2016 05/30/2016 Inactive prednisone 20 mg tablet RxNorm: 010503 3 Tablet(s) PO daily 06/201602/10/2016 Inactive prednisone 20 mg tablet RxNorm: 160849 3 Tablet(s) PO daily 06/201605/14/2016 Inactive Kenalog 40 mg/mL suspension for injection RxNorm: 9546266 Milliliter(s) Inj 01/20/2016 01/20/2016 Inactive acetaminophen 500 mg tablet RxNorm: 566766 1-2 Tablet(s) PO as needed No Start Date Active clopidogrel 75 mg tablet RxNorm: 534206 1 Tablet(s) PO daily No Start Date 02/28/2017 Inactive clonazepam 1 mg tablet RxNorm: 522801 1 Tablet(s) PO QHS No Start Date 04/24/2016 Inactive acyclovir 400 mg tablet RxNorm: 305038 2 Tablet(s) PO 5x daily No Start Date 02/28/2017 Inactive Medication Administered Medication Codes Instructions Start Date Status ceftriaxone 500 mg solution for injection RxNorm: 7136337 1Milliliter 02/16/2017 No longer Active Kenalog 40 mg/mL suspension for injection RxNorm: 4394651 1Milliliter 02/16/2017 No longer Active ceftriaxone 1 gram solution for injection RxNorm: 1567175 10/06/2016 No longer Active Kenalog 40 mg/mL suspension for injection RxNorm: 2357874 Milliliter 01/20/2016 No longer Active Immunizations No Immunization data Assessments Condition Codes Effective Dates Type 2 diabetes mellitus with hyperglycemia ICD-10: E11.65 ICD-9: 250.00 05/17/2017 Insect bite (nonvenomous) of abdominal wall, initial encounter ICD-10: S30.861A ICD-9: 911.4 05/17/2017 Allergic contact dermatitis due to plants, except food ICD- 10: L23.7 ICD-9: 692.6 05/04/2017 Essential (primary) hypertension ICD-10: I10 ICD-9: 401.1 03/15/2017 Cough ICD-10: R05 ICD-9: 786.2 03/01/2017 Acute recurrent maxillary sinusitis ICD-10: J01.01 ICD-9: 461.0 02/16/2017 Nasal congestion ICD-10: R09.81 ICD-9: 478.19 02/16/2017 Muscle weakness (generalized) ICD-10: M62.81 ICD-9: 728.87 02/05/2017 Disorientation, unspecified ICD-10: R41.0 ICD-9: 293.0 02/05/2017 Cellulitis of right lower limb ICD-10: L03.115 ICD-9: 682.7 10/13/2016 Type 2 diabetes mellitus with foot ulcer ICD-10: E11.621 ICD-9: 250.80 10/09/2016 Pain in right foot ICD-10: M79.671 ICD-9: [...] Visit Reason For Visit Effective Dates Notes hyperglycemia 05/17/2017 rash 05/04/2017 cough 03/15/2017 cough 03/01/2017 dyspnea 02/16/2017 diabetes mellitus 02/12/2017 Hospital Follow Up 02/05/2017 possible stroke arm pain 01/29/2017 foot pain 10/09/2016 foot pain 10/06/2016 back pain 07/18/2016 diabetes mellitus 06/22/2016 diabetes mellitus 05/23/2016 fatigue 05/15/2016 anxiety 01/20/2016 Results Observation Observation Code Item Item Code Result Date %Hba1C Ymp156 % HbA1c 13500-0 9.5 % 05/04/2017 %Hba1C Uhn349 Gluc Ave 226 mg/dL 05/04/2017 Tsh Ord6 hTSH II 1.47 uIU/mL 05/04/2017 Cbc With Differential Ord2 WBC 6.14 K/ul 05/04/2017 Cbc With Differential Ord2 RBC 4.86 M/ul 05/04/2017 Cbc With Differential Ord2 HGB 15.4 g/dl 05/04/2017 Cbc With Differential Ord2 Neut% 49.8 % 05/04/2017 Cbc With Differential Ord2 HCT 43.7 % 05/04/2017 Cbc With Differential Ord2 MCV 89.9 fl 05/04/2017 Cbc With Differential Ord2 Lymph% 40.4 % 05/04/2017 Cbc With Differential Ord2 MCH 31.7 pg 05/04/2017 Cbc With Differential Ord2 Long% 8.5 % 05/04/2017 Cbc With Differential Ord2 [...] 2.48 K/ul 05/04/2017 Cbc With Differential Ord2 Long ABS# 0.5 K/ul 05/04/2017 Cbc With Differential Ord2 Eos ABS# 0.1 K/ul 05/04/2017 Cbc With Differential Ord2 Baso ABS# 0.0 K/ul 05/04/2017 Comp Metabolic Iif421 NA 135 mEq/L 05/04/2017 Comp Metabolic Pib524 K 4.2 mEq/L 05/04/2017 Comp Metabolic Bhv360 CL 99 mEq/L 05/04/2017 Comp Metabolic Bud549 CO2 26.0 mEq/L 05/04/2017 Comp Metabolic Iuy751 ANION GAP 14 05/04/2017 Comp Metabolic Qnt594 GLUCOSE 277 mg/dL 05/04/2017 Comp Metabolic Ptq138 Creat 0.9 mg/dL 05/04/2017 Comp Metabolic Hlf098 eGFR 96 ml/min/1.73m2 05/04/2017 Comp Metabolic Pvi762 BUN 23 mg/dL 05/04/2017 Comp Metabolic Rru849 B/C Ratio 26.1 Ratio 05/04/2017 Comp Metabolic Qaf549 CALCIUM 8.9 mg/dL 05/04/2017 Comp Metabolic Bcb351 ALK PHOS 81 U/L 05/04/2017 Comp Metabolic Mbg134 AST(SGOT) 21 U/L 05/04/2017 Comp Metabolic Azv182 ALT(SGPT) 27 U/L 05/04/2017 Comp Metabolic Kok652 BILI T 1.2 mg/dL 05/04/2017 Comp Metabolic Aku718 ALBUMIN 4.0 g/dL 05/04/2017 Comp Metabolic Ynq339 TPRO 6.7 g/dL 05/04/2017 Comp Metabolic Ccp444 GLOB 2.7 g/dL 05/04/2017 Comp Metabolic Qpk302 A/G Ratio 1.5 Ratio 05/04/2017 Comp Metabolic Xts889 Osmo 284 mOsmo 05/04/2017 C A/B FLU 5562056 Influenza A Scr Negative 02/16/2017 C A/B FLU 6907701 Influenza B Scr Positive 02/16/2017 Cbc With [...] 39.7 % 05/23/2016 Cbc With Differential Ord2 Long% 8.8 % 05/23/2016 Cbc With Differential Ord2 [...] 2.07 K/ul 05/23/2016 Cbc With Differential Ord2 Long ABS# 0.5 K/ul 05/23/2016 Cbc With Differential Ord2 Eos ABS# 0.1 K/ul 05/23/2016 Cbc With Differential Ord2 Baso ABS# 0.0 K/ul 05/23/2016 Lipid Ord30 CHOL 397 mg/dL 05/17/2016 Lipid Ord30 HDL 48.0 mg/dl 05/17/2016 Lipid Ord30 TRIG 578 mg/dL 05/17/2016 Lipid Ord30 LDL Unable to calculate Due to elevated triglycerides mg/dL 05/17/2016 Lipid Ord30 C/HDL 8.3 Ratio 05/17/2016 %Hba1C Vbs169 % HbA1c 74902-9 12.4 % 05/16/2016 %Hba1C Yqz250 Gluc Ave 309 mg/dL 05/16/2016 Cbc With Differential Ord2 WBC 6.40 K/ul 05/15/2016 Cbc With Differential Ord2 RBC 5.96 M/ul 05/15/2016 Cbc With Differential Ord2 HGB 18.1 g/dl 05/15/2016 Cbc With Differential Ord2 Neut% 59.3 % 05/15/2016 Cbc With Differential Ord2 HCT 52.1 % 05/15/2016 Cbc With Differential Ord2 MCV 87.4 fl 05/15/2016 Cbc With Differential Ord2 Lymph% 31.9 % 05/15/2016 Cbc With Differential Ord2 MCH 30.4 pg 05/15/2016 Cbc With Differential Ord2 Long% 7.8 % 05/15/2016 Cbc With Differential Ord2 [...] 2.04 K/ul 05/15/2016 Cbc With Differential Ord2 Long ABS# 0.5 K/ul 05/15/2016 Cbc With Differential Ord2 Eos ABS# 0.1 K/ul 05/15/2016 Cbc With Differential Ord2 Baso ABS# 0.0 K/ul 05/15/2016 Tsh Ord6 hTSH II 1.70 uIU/mL 05/15/2016 Comp Metabolic Qid035 NA 135 mEq/L 05/15/2016 Comp Metabolic Qhz761 K 3.9 mEq/L 05/15/2016 Comp Metabolic Fzw524 CL 96 mEq/L 05/15/2016 Comp Metabolic Tmf837 CO2 27.0 mEq/L 05/15/2016 Comp Metabolic Xuw546 ANION GAP 16 05/15/2016 Comp Metabolic Zet906 GLUCOSE 183 mg/dL 05/15/2016 Comp Metabolic Xde206 Creat 1.1 mg/dL 05/15/2016 Comp Metabolic Fjp846 eGFR 71 ml/min/1.73m2 05/15/2016 Comp Metabolic Erv419 BUN 17 mg/dL 05/15/2016 Comp Metabolic Zqm410 B/C Ratio 14.9 Ratio 05/15/2016 Comp Metabolic Egy914 CALCIUM 9.6 mg/dL 05/15/2016 Comp Metabolic Saa981 ALK PHOS 100 U/L 05/15/2016 Comp Metabolic Xgv816 AST(SGOT) 20 U/L 05/15/2016 Comp Metabolic Dhq781 ALT(SGPT) 20 U/L 05/15/2016 Comp Metabolic Ebu755 BILI T 1.3 mg/dL 05/15/2016 Comp Metabolic Krx741 ALBUMIN 4.6 g/dL 05/15/2016 Comp Metabolic Sje949 TPRO 8.1 g/dL 05/15/2016 Comp Metabolic Dfp020 GLOB 3.5 g/dL 05/15/2016 Comp Metabolic Ujf842 A/G Ratio 1.3 Ratio 05/15/2016 Comp Metabolic Gbm467 Osmo 276 mOsmo 05/15/2016 Review of Systems System Result Effective Dates Constitutional No recent illness 2016 Constitutional No [...] Codes Date TRIAMCINOLONE ACET INJ NOS CPT-4: A2302Evclezh THER/PROPH/DIAG INJ SC/IM CPT-4: 69804Vjspahr TRIAMCINOLONE ACET INJ NOS CPT-4: F8578Goxyucd ROCEPHIN, PER 250 MG CPT-4: X1444Acjsteo ROCEPHIN, PER 250 MG CPT-4: M8370Hltgsxt 12/2015 URINALYSIS NONAUTO W/O SCOPE CPT-4: 16750Nqghivd TRIAMCINOLONE ACET INJ NOS CPT-4: D8959Kljubyj Vital Signs Date Vital 05/17/2017 Blood Pressure 1: 142/92 Code : 8480-6 BMI: 31.8 Code : 16195-4 Heart Rate 1 : 102 bpm Height: [...] Code : 8480-6 BMI: 31.8 Code : 02073-9 Heart Rate 1 : 85 bpm Height: 6'2" SpO2: 96% Temperature: 36.6 (C) / 97.9 (F) Weight: 248 lbs 02/12/2017 Blood Pressure 1: 126/76 Code : 8480-6 BMI: 31.8 Code : 59716-7 Heart Rate 1 : 106 bpm Height: 6'2" SpO2: 91% Weight: 248 lbs 02/05/2017 Blood Pressure 1: 146/86 Code : 8480-6 BMI: 31.9 Code : 82083-2 Heart Rate 1 : 98 bpm Height: 6'2" SpO2: 87% Temperature: 36.7 (C) / 98.0 (F) Weight: 248 lbs 8 oz 01/29/2017 Blood Pressure 1: 132/84 Code : 8480-6 BMI: 31.8 Code : 51606-2 Heart Rate 1 : 83 bpm Height: 6'2" SpO2: 97% Weight: 248 lbs 10/13/2016 Blood Pressure 1: 128/72 Code : 8480-6 Heart Rate 1: 86 bpm SpO2: 94% 10/09/2016 Blood Pressure 1: 128/68 Code : 8480-6 Heart Rate 1: 136 bpm SpO2: 94% Temperature: 36.8 (C) / 98.2 (F) 10/06/2016 Blood Pressure 1: 140/80 Code : 8480-6 BMI: 32.1 Code : 98606-8 Heart Rate 1 : 94 bpm Height: 6'2" SpO2: 95% Weight: 250 lbs 07/18/2016 Blood Pressure 1: 128/86 Code : 8480-6 BMI: 32.1 Code : 51033-0 Heart Rate 1 : 89 bpm Height: 6'2" SpO2: 96% Weight: 250 lbs 06/22/2016 Blood Pressure 1: 118/70 Code : 8480-6 BMI: 32.1 Code : 79823-9 Heart Rate 1 : 70 bpm Height: 6'2" SpO2: 97% Weight: 250 lbs 05/23/2016 Blood Pressure 1: 128/80 Code : 8480-6 BMI: 32.1 Code : 59447-9 Heart Rate 1 : 76 bpm Height: 6'2" SpO2: 98% Weight: 250 lbs 05/15/2016 Blood Pressure 1: 110/90 Code : 8480-6 BMI: 31.3 Code : 75414-3 Heart Rate 1 : 111 bpm Height: 6'2" SpO2: 97% Temperature: 36.6 (C) / 97.8 (F) Weight: 244 lbs 01/20/2016 Blood Pressure 1: 128/76 Code : 8480-6 BMI: 33.0 Code : 80751-8 Heart Rate 1 : 103 bpm Height: 6'2" SpO2: 95% Weight: 257 lbs Functional Status No Functional Status data History of Present Illness Symptom Name Status Result Effective Date Notes hyperglycemia Quality chronic 05/17/2017 None hyperglycemia Onset [...] data Encounters Encounter Performer Location Codes Date ([id number]) 99331 EST. PATIENT, LEVEL III Diagnosis: Type 2 diabetes mellitus with hyperglycemia[ICD10: E11.65] Diagnosis: Insect bite (nonvenomous) of abdominal wall, initial encounter[ICD10 : S30.861A] [facility] CPT-4: 07523 05/17/2017 ([id number]) 92412 EST. PATIENT, LEVEL III Diagnosis: Allergic contact dermatitis due to plants, except food[ICD10: L23.7] [facility] CPT-4: 17248 05/04/2017 ([id number]) 57888 EST. PATIENT, LEVEL III Diagnosis: Essential (primary) hypertension[ICD10: I10] Marcela Ha MD [facility] CPT-4: 40314 03/15/2017 ([id number]) 92382 EST. PATIENT, LEVEL III Diagnosis: Cough[ICD10: R05] Diagnosis: Essential (primary) hypertension[ICD10: I10] Marcela Ha MD [facility] CPT-4: 44981 03/01/2017 ([id number]) 97321 EST. PATIENT, LEVEL III Diagnosis: Cough[ICD10: R05] Diagnosis: Nasal congestion[ICD10: R09.81] Diagnosis: Acute recurrent maxillary sinusitis[ICD10: J01.01] Marcela Ha MD [facility] CPT-4: 95419 02/16/2017 ([id number]) 07835 EST. PATIENT, LEVEL III Diagnosis: Type 2 diabetes mellitus with hyperglycemia[ICD10: E11.65] Marcela Ha MD [facility] CPT-4: 40158 02/12/2017 ([id number]) 71072 EST. PATIENT, LEVEL IV Diagnosis: Type 2 diabetes mellitus with hyperglycemia[ICD10: E11.65] Diagnosis: Muscle weakness (generalized)[ICD10: M62.81] Diagnosis: Disorientation, unspecified[ICD10: R41.0] Marcela Ha MD [facility] CPT-4: 17000 02/05/2017 ([id number]) Patient admitted to the hospital from clinic (NO CHARGE) Diagnosis: Type 2 diabetes mellitus with hyperglycemia[ICD10: E11.65] Diagnosis: Disorientation, unspecified[ICD10: R41.0] Diagnosis: Muscle weakness (generalized)[ICD10: M62.81] Marcela Ha MD [facility] CPT-4: 51918X 01/29/2017 ([id number]) Miscellaneous no charge Diagnosis: Cellulitis of right lower limb[ICD10: L03.115] Marcela Ha MD [facility] CPT-4: 23906 10/13/2016 ([id number]) Miscellaneous no charge Diagnosis: Type 2 diabetes mellitus with foot ulcer[ICD10: E11.621] Diagnosis: Pain in right foot[ICD10: M79.671] Marcela Ha MD, [facility] CPT-4: 62022 10/09/2016 85214 EST. PATIENT, LEVEL II Diagnosis: Cellulitis of right lower limb[ICD10: L03.115] Marcela Ha MD, [facility] CPT-4: 57124 10/06/2016 ([id number]) 61246 EST. PATIENT, LEVEL IV Diagnosis: Low back pain[ICD10: M54.5] Diagnosis: Other deformities of toe(s) (acquired), left foot[ICD10: M20.5X2] Diagnosis: Type 2 diabetes mellitus with foot ulcer[ICD10: E11.621] Marcela Ha MD , [facility] CPT-4: 88820 07/18/2016 ([id number]) 34521 EST. PATIENT, LEVEL III Diagnosis: Type 2 diabetes mellitus with hyperglycemia[ICD10: E11.65] Marcela Ha MD, [facility] CPT-4: 01353 06/22/2016 ([id number]) 55070 EST. PATIENT, LEVEL IV Diagnosis: Type 2 diabetes mellitus with hyperglycemia[ICD10: E11.65] Diagnosis: Mixed hyperlipidemia[ICD10: E78.2] Diagnosis: Other hemoglobinopathies[ICD10: D58.2] Marcela Ha MD, [facility] CPT-4: 99107 05/23/2016 ([id number]) 89636 EST. PATIENT, LEVEL IV Diagnosis: Type 2 diabetes mellitus with other specified complication[ICD10: E11.69] Diagnosis: Dehydration[ICD10: E86.0] Marcela Ha MD, [facility] CPT-4: 77638 05/15/2016 ([id number]) OFFICE VISIT, NEW - LEVEL 3 Diagnosis: Allergic contact dermatitis due to plants, except food[ICD10: L23.7] Madeline Ha MD, [facility] CPT-4: 62898 01/20/2016 Plan of Care Planned Activity Notes Codes Status Date Visit Plan: Diabetes Mellitus - Hgb A1C [...] glucose readings are starting to become less controlled.I have recommended for the patient to follow more strictly to the diabetic diet as discussed in clinic to allow for greater blood glucose control.Tick bite-continue doxycycline 05/17/2017 Patient Education: Patient Medication Summary Completed 05/17/2017 Patient Education: Obesity Completed 05/17/2017 Visit Plan: Poison Jana - pt is to use topical treatments as directed. Pt is cleanse clothing in hot water with soap, and call if symptoms do not improve or if they worsen.Kenalog injection today in the office-monitor blood sugars closely over the next 2-3 days-use calamine as directed-call if you want anai edge called into [facility]. 05/04/2017 Appointment: Marcela Oshea WPtel: [facility]5 [facility] [place] [address] (30 min) Complex 05/04/2017 Patient Education: Patient Medication Summary Completed 05/04/2017 Visit Plan: Hypertension - well controlled - continue with current medications , continue with no added salt diet. Pt has been encouraged to exercise daily.The pt has been advised to call the office if there are any acute concerns about change in blood pressure readings at home.Cough-resolved 2016 Appointment: Marcela Oshea WPtel: [facility]5 [facility] [place] [address] (15 min) Moderate 03/15/2017 Patient Education: Patient Medication Summary Completed 03/15/2017 Appointment: Marcel[facility] Oshea [facility]Ptel: [phone] (30 min) Complex 03/12/2017 Visit Plan: Feng inhibitor induced cough-stop lisinopril-start losartan as directed-monitor symptoms and follow up [...] to alert any close contacts as to illness.Sinusitis-kenalog and rocephin injections today in the office-monitor symptoms and call if symptoms do not resolve-start augmentin if needed as discussed 02/16/2017 Appointment: Marcela Oshea WPtel: [address] (15 min) Moderate 02/16/2017 Patient Education: [...] controlled. 02/12/2017 Appointment: Marcela Oshea WPtel: [phone] [facility] [place] [address] (30 min) Complex 02/12/2017 Patient Education: Patient Medication Summary Completed 02/12/2017 Appointment: Marcela Oshea WPtel: [phone] [phone] (30 min) Complex 02/06/2017 Visit Plan: Diabetes [...] glucose readings are starting to become less controlled.Lxnpwlkmi-oewknpcu-dgbrxejx to monitor Generalized weakness-refer for PT-patient refuses today but will consider 01/2017 Appointment: Marcela Oshea WPtel: [phone] [facility] [place] [address] (30 min) Complex 02/05/2017 Patient Education: Patient Medication Summary Completed 02/05/2017 Appointment: Marcela Oshea WPtel: [phone] [place] (30 min) Complex 01/30/2017 Visit Plan: Acute confusion-uncontrolled diabetes-chronically noncompliant with treatment and stopped his insulin several months ago-r/o stroke vs DKA-Dr Ha in to evaluate patient-plan to admit for further work up and treatment- patient's called and she transported him to the hospital 01/29/2017 Appointment: Marcela Oshea WPtel: [phone] [place] (30 min) Complex 01/29/2017 Patient Education: Patient Medication Summary Completed 01/29/2017 Patient Education: Obesity Completed 01/29/2017 Visit Plan: Right foot pain-MRI shows foreign body-appt with Dr Grewal for evaluation on Sunday. 10/13/2016 Appointment: Marcela Oshea WPtel: [phone] [place] (15 min) Moderate 10/13/2016 Patient Education: Patient Medication Summary Completed 10/13/2016 Appointment: Marcela Oshea WPtel: [facility]5 [phone] [place] (30 min) Complex 10/12/2016 Visit Plan: Right foot zwas-tlisjegz-bdpxa washer dropped on foot-xray negative but pain continues to increase-recommend MRI of foot for further evaluation-refer to wound care for lesions on right foot, patient has diabetes and history of osteomyelitis-culture obtained today-continue oral abx-follow up in the office on , sooner if needed 10/09/2016 Visit Plan: Right foot pkwv-jhbcoedh-qplxz washer dropped 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-xray negative but pain continues to increase-recommend MRI of foot for further evaluation-refer to wound care for lesions on right foot, patient has diabetes and history of osteomyelitis-culture obtained today-continue oral abx-follow up in the office on , sooner if needed 10/09/2016 Visit Plan: Right foot sozm-trwskfjj-vvmvn washer dropped on foot-xray negative but pain continues to increase-recommend MRI of foot for further evaluation-refer to wound care for lesions on right foot, patient has diabetes and history of osteomyelitis-culture obtained today-continue oral abx-follow up in the office on , sooner if needed 10/09/2016 Appointment: Marcela Oshea WPtel: [facility]4 [phone] (30 min) Complex 10/09/2016 Patient Education: Patient Medication Summary Completed 10/09/2016 Visit Plan: Cellulitis - continue with oral antibiotics as previously directed , return to clinic as previously directed, call for acute change in symptoms, worsening redness, warmth, discharge. 10/06/2016 Appointment: Marcela Oshea WPtel: [facility]4 [place] [phone] (10 min) Simple 10/06/2016 Patient Education: Patient Medication Summary Completed 10/06/2016 Appointment: Marclea Oshea WPtel: [address] [place], [place] [phone] (30 min) Complex 08/24/2016 Referral: Sun Glynn Referral Completed 07/21/2016 Visit Plan: Low back pain- history of spinal fusion-patient for xray lumbar spine-RX sent to [facility] and instructed on use-topical voltaren samples provided and instructed on use. Ok to use tylenol as needed as well. The patient is to call the office if the pain is worsening or does not improve. Pressure ulcer left 4th toe-refer to Dr Glynn for evaluation 07/18/2016 Appointment: Marcela Oshea WPtel: [address] [place], [place] [phone] (30 min) Complex 07/18/2016 Patient Education: Patient Medication Summary Completed 07/18/2016 Patient Education: Obesity Completed 07/18/2016 Care Plan: Referral Order SNOMED-CT : [id number] Pending 07/18/2016 Visit Plan: Diabetes Mellitus - I [...] glucose readings are starting to become less controlled.I have recommended for the patient to follow more strictly to the diabetic diet as discussed in clinic to allow for greater blood glucose control. 06/22/2016 Appointment: Marcela Oshea WPtel: [phone] [phone] (30 min) Complex 06/22/2016 Patient Education: [...] and to assure normal liver response to medications.Diabetes Mellitus - Uncontrolled - per recent FSBS [...] glucose readings are starting to become less controlled.I have recommended for the patient to follow more strictly to the diabetic diet as discussed in clinic to allow for greater blood glucose control.Elevated Hgb- check CBC today 05/23/2016 Appointment: Marcela Oshea WPtel: [phone] [phone] (30 min) Complex 05/23/2016 Patient Education: Patient Medication Summary Completed 05/23/2016 Patient Education: Obesity Completed 05/23/2016 Patient Education: Patient Medication Summary Completed 05/17/2016 Patient Education: Patient Medication Summary Completed 05/17/2016 Care Plan: Cbc With Differential Pending 05/17/2016 Visit Plan: Diabetes Mellitus - Uncontrolled [...] glucose readings are starting to become less controlled.I have recommended for the patient to follow more strictly to the diabetic diet as discussed in clinic to allow for greater blood glucose control.Dehydration-discussed oral rehydration vs IV fluid replacement-will start with oral rehydration-check labs and proceed as indicated-instructed patient to call the office if symptoms do not improve or if any worse. Patient verbalized understanding of plan. 05/15/2016 App[facility]ment: [facility] [phone] [phone] (15 min) Moderate 05/15/2016 Patient Education: [...] 01/20/2016 Referral: Sun Glynn Referral Initiated Instructions Comment . Right foot pain-MRI shows foreign body-appt with Dr Grewal for evaluation on Sunday. . Poison Jana - pt is to use topical treatments as directed. Pt is cleanse clothing in hot water with soap, and call if symptoms do not improve or if they worsen. REPEAT CBC Toujeo 10 units daily [...] blood glucose control. Elevated Hgb-check CBC today TOUJEO 25 UNITS DAILY. NOTIFY CLINIC IF [...] are starting to become less controlled. . Diabetes Mellitus - I have recommended [...] if you want blue rosieo called into [facility]. xray lumbar spine flexeril as needed voltaren gel ulcer left 4th toe-refer to assistant scientist . Low back pain- history of spinal fusion-patient for xray lumbar spine-RX sent to [facility] and instructed on use-topical voltaren samples provided and instructed on use. Ok to use tylenol as needed as well. The patient is to call the office if the pain is worsening or does not improve. Pressure ulcer left 4th toe-refer to Dr Glynn for evaluation continue oral antibiotic start using topical antibiotic ointment to scabbed areas and cover with dressing follow up , sooner if needed refer to wound care mri left foot due to increased pain -concern for fracture from injury . Right foot xzkh-wuytwyxz-eynil washer dropped on foot-xray negative but pain [...] for fracture from injury . Right foot wjlx-bfhmdlfw-kxymh washer dropped on foot-xray negative but pain [...] for fracture from injury . Right foot oxwx-nzfkabce-jrsln washer dropped on foot-xray negative but pain continues to increase-recommend MRI of foot for further evaluation-refer to wound care for lesions on right foot, patient has diabetes and history of osteomyelitis-culture obtained today-continue oral abx-follow up in the office on , sooner if needed START CHECKING BLOOD SUGARS . Diabetes Mellitus [...] readings are starting to become less controlled. Iqizfhpud-asvampfq-siaznwhu to monitor Generalized weakness-refer for PT-patient refuses today but will consider . Hypertension - well controlled - continue with current medications, continue with no added salt diet. Pt has been encouraged to exercise daily. The pt has been advised to call the office if there are any acute concerns about change in blood pressure readings at home. Cough-resolved . Acute confusion-uncontrolled diabetes-chronically noncompliant with treatment [...] worse. Patient verbalized understanding of plan. . Cellulitis - continue with oral antibiotics as previously directed, return to clinic as previously directed, call for acute change in symptoms, worsening redness, warmth, discharge.
--- OUTSIDE RECORDS SUMMARY | 2019-03-10 09:23 | XMS REPORT | CCD ---
Author Author Madeline Kennedy MD, [facility] Address [address] [place] [address] Phone Care Team Providers Care Deicer Repairer Pneumatic Name Role Phone PP Unavailable CCM Unavailable Summary Purpose Interface Exchange Insurance Providers Payer name Policy type / Coverage type Covered constitution party ID Effective Begin Date Effective End Date Blue Cross Blue Shield [facility] Blue Cross/Blue Shield [id number] Unknown Family history Father Diagnosis Age At Onset Hyperlipidemia Unknown Heart Attack Unknown Mother Diagnosis Age At Onset Hypertension Unknown Social History Social History Element Codes Description Effective Dates Marital status Unknown Mignon 01/20/2016 Number of children Unknown 4 01/20/2016 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/[address]: 760524721 Never smoker 01/20/[address]: 585452711 Never drinks alcohol 01/20/2016 Allergies, Adverse Reactions, [...] Instructions doxycycline hyclate 100 mg capsule RxNorm: 9271983 1 Capsule(s) PO BID 05/17/2017 05/21/2017 Active doxycycline hyclate 100 mg capsule RxNorm: 3390385 1 Capsule(s) PO BID 05/11/2017 05/16/2017 Inactive losartan 25 mg tablet RxNorm: 988202 1 Tablet(s) PO daily 201606/28/2017 Active atorvastatin 40 mg tablet RxNorm: 618514 1 Tablet(s) PO daily 03/01/2017 08/27/2017 Active clopidogrel 75 mg tablet RxNorm: 635736 1 Tablet(s) PO daily 08/27/2017 Active Flonase Allergy Relief 50 mcg/actuation nasal spray, suspension RxNorm: 6161597 2 [place] NASAL daily 02/16/20172016 Inactive Augmentin 875 mg-125 mg tablet RxNorm: 107681 1 Tablet(s) PO BID 02/16/2017 02/22/2017 Inactive GET PROBIOTIC TO TAKE WHILE ON ABX Tamiflu 75 mg capsule RxNorm: 747818 1 Capsule(s) PO BID 201602/20/2017 Inactive ceftriaxone 500 mg solution for injection RxNorm: 1735262 1 Milliliter(s) Inj 02/16/2017 02/16/2017 Inactive Kenalog 40 mg/mL suspension for injection RxNorm: 4949172 1 Milliliter(s) Inj 02/16/2017 02/16/2017 Inactive Toujeo SoloStar 300 unit/mL (1.5 mL) subcutaneous insulin pen RxNorm: 9371541 25 Unit(s) SQ QAM 02/12/2017 06/10/2017 Active Toujeo SoloStar 300 unit/mL (1.5 mL) subcutaneous insulin pen RxNorm: 7657155 10 Unit(s) SQ QAM 02/05/2017 02/11/2017 Inactive lisinopril 10 mg tablet RxNorm: 790832 1 Tablet(s) PO daily 02/28/2017 Inactive atorvastatin 40 mg tablet RxNorm: 419618 1 Tablet(s) PO daily 02/01/2017 02/28/2017 Inactive doxycycline hyclate 100 mg capsule RxNorm: 4332566 1 Capsule(s) PO BID 02/01/2017 02/10/2017 Inactive clonazepam 1 mg tablet RxNorm: 223399 1 Tablet(s) PO Q8 as needed 10/09/2016 01/06/2017 Inactive ceftriaxone 1 gram solution for injection RxNorm: 1322759 Inj 10/06/2016 10/06/2016 Inactive cyclobenzaprine 10 mg tablet RxNorm: 327277 1/2-1 Tablet(s) PO TID PRN 07/18/2016 01/28/2017 Inactive clonazepam 1 mg tablet RxNorm: 844931 1 Tablet(s) PO Q8 as needed 05/31/2016 05/29/2016 Inactive clonazepam 1 mg tablet RxNorm: 292620 1 Tablet(s) PO Q8 as needed 05/31/2016 08/28/2016 Inactive Toujose SoloStar 300 unit/mL (1.5 mL) subcutaneous insulin pen RxNorm: 5496843 10 Unit(s) SQ daily 05/23/2016 01/28/2017 Inactive Crestor 10 mg tablet RxNorm: 301653 1 Tablet(s) PO QHS 201501/28/2017 Inactive Crestor 10 mg tablet RxNorm: 113917 1 Tablet(s) PO QHS 201505/18/2016 Inactive clonazepam 1 mg tablet RxNorm: 530169 1 Tablet(s) PO Q8 as needed 04/25/2016 05/30/2016 Inactive prednisone 20 mg tablet RxNorm: 899932 3 Tablet(s) PO daily 06/201602/10/2016 Inactive prednisone 20 mg tablet RxNorm: 276481 3 Tablet(s) PO daily 06/201605/14/2016 Inactive Kenalog 40 mg/mL suspension for injection RxNorm: 4690222 Milliliter(s) Inj 01/20/2016 01/20/2016 Inactive acetaminophen 500 mg tablet RxNorm: 090277 1-2 Tablet(s) PO as needed No Start Date Active clopidogrel 75 mg tablet RxNorm: 375938 1 Tablet(s) PO daily No Start Date 02/28/2017 Inactive clonazepam 1 mg tablet RxNorm: 337392 1 Tablet(s) PO QHS No Start Date 04/24/2016 Inactive acyclovir 400 mg tablet RxNorm: 060669 2 Tablet(s) PO 5x daily No Start Date 02/28/2017 Inactive Medication Administered Medication Codes Instructions Start Date Status ceftriaxone 500 mg solution for injection RxNorm: 6417078 1Milliliter 02/16/2017 No longer Active Kenalog 40 mg/mL suspension for injection RxNorm: 1733530 1Milliliter 02/16/2017 No longer Active ceftriaxone 1 gram solution for injection RxNorm: 1215888 10/06/2016 No longer Active Kenalog 40 mg/mL suspension for injection RxNorm: 3858533 Milliliter 01/20/2016 No longer Active Immunizations No [...] Code Item Item Code Result Date %Hba1C Boe881 % HbA1c 36064-0 9.5 % 05/04/2017 %Hba1C Dtd509 Gluc Ave 226 mg/dL 05/04/2017 Tsh Ord6 [...] 31.7 pg 05/04/2017 Cbc With Differential Ord2 [place]% 8.5 % 05/04/2017 Cbc With Differential Ord2 [...] 2.48 K/ul 05/04/2017 Cbc With Differential Ord2 [place] ABS# 0.5 K/ul 05/04/2017 Cbc With Differential Ord2 Eos ABS# 0.1 K/ul 05/04/2017 Cbc With Differential Ord2 Baso ABS# 0.0 K/ul 05/04/2017 Comp Metabolic Tdk848 NA 135 mEq/L 05/04/2017 Comp Metabolic Uxk256 K 4.2 mEq/L 05/04/2017 Comp Metabolic Hqq171 CL 99 mEq/L 05/04/2017 Comp Metabolic Efe888 CO2 26.0 mEq/L 05/04/2017 Comp Metabolic Jox229 ANION GAP 14 05/04/2017 Comp Metabolic Qvq221 GLUCOSE 277 mg/dL 05/04/2017 Comp Metabolic Olp467 Creat 0.9 mg/dL 05/04/2017 Comp Metabolic Ucj338 eGFR 96 ml/min/1.73m2 05/04/2017 Comp Metabolic Vlq750 BUN 23 mg/dL 05/04/2017 Comp Metabolic Rhx090 B/C Ratio 26.1 Ratio 05/04/2017 Comp Metabolic Csc035 CALCIUM 8.9 mg/dL 05/04/2017 Comp Metabolic Vdj140 ALK PHOS 81 U/L 05/04/2017 Comp Metabolic Amr400 AST(SGOT) 21 U/L 05/04/2017 Comp Metabolic Wzt855 ALT(SGPT) 27 U/L 05/04/2017 Comp Metabolic Xjy043 BILI T 1.2 mg/dL 05/04/2017 Comp Metabolic Awg656 ALBUMIN 4.0 g/dL 05/04/2017 Comp Metabolic Tai208 TPRO 6.7 g/dL 05/04/2017 Comp Metabolic Xmn313 GLOB 2.7 g/dL 05/04/2017 Comp Metabolic Qms439 A/G Ratio 1.5 Ratio 05/04/2017 Comp Metabolic Uel666 Osmo 284 mOsmo 05/04/2017 C A/B FLU 4035839 Influenza A Scr Negative 02/16/2017 C A/B FLU 8878738 Influenza B Scr Positive 02/16/2017 Cbc With [...] 39.7 % 05/23/2016 Cbc With Differential Ord2 [place]% 8.8 % 05/23/2016 Cbc With Differential Ord2 [...] 2.07 K/ul 05/23/2016 Cbc With Differential Ord2 [place] ABS# 0.5 K/ul 05/23/2016 Cbc With Differential Ord2 Eos ABS# 0.1 K/ul 05/23/2016 Cbc With Differential Ord2 Baso ABS# 0.0 K/ul 05/23/2016 Lipid Ord30 CHOL 397 mg/dL 05/17/2016 Lipid Ord30 HDL 48.0 mg/dl 05/17/2016 Lipid Ord30 TRIG 578 mg/dL 05/17/2016 Lipid Ord30 LDL Unable to calculate Due to elevated triglycerides mg/dL 05/17/2016 Lipid Ord30 C/HDL 8.3 Ratio 05/17/2016 %Hba1C Ehw506 % HbA1c 50531-9 12.4 % 05/16/2016 %Hba1C Wcs879 Gluc Ave 309 mg/dL 05/16/2016 Cbc With [...] 30.4 pg 05/15/2016 Cbc With Differential Ord2 [place]% 7.8 % 05/15/2016 Cbc With Differential Ord2 [...] 2.04 K/ul 05/15/2016 Cbc With Differential Ord2 [place] ABS# 0.5 K/ul 05/15/2016 Cbc With Differential Ord2 Eos ABS# 0.1 K/ul 05/15/2016 Cbc With Differential Ord2 Baso ABS# 0.0 K/ul 05/15/2016 Tsh Ord6 hTSH II 1.70 uIU/mL 05/15/2016 Comp Metabolic Dxo725 NA 135 mEq/L 05/15/2016 Comp Metabolic Iqf548 K 3.9 mEq/L 05/15/2016 Comp Metabolic Nxc316 CL 96 mEq/L 05/15/2016 Comp Metabolic Dll894 CO2 27.0 mEq/L 05/15/2016 Comp Metabolic Bvd721 ANION GAP 16 05/15/2016 Comp Metabolic Qhh458 GLUCOSE 183 mg/dL 05/15/2016 Comp Metabolic Cmw471 Creat 1.1 mg/dL 05/15/2016 Comp Metabolic Rgb803 eGFR 71 ml/min/1.73m2 05/15/2016 Comp Metabolic Tga965 BUN 17 mg/dL 05/15/2016 Comp Metabolic Rqf983 B/C Ratio 14.9 Ratio 05/15/2016 Comp Metabolic Akz551 CALCIUM 9.6 mg/dL 05/15/2016 Comp Metabolic Jqr953 ALK PHOS 100 U/L 05/15/2016 Comp Metabolic Jxo541 AST(SGOT) 20 U/L 05/15/2016 Comp Metabolic Rnb577 ALT(SGPT) 20 U/L 05/15/2016 Comp Metabolic Miz342 BILI T 1.3 mg/dL 05/15/2016 Comp Metabolic Jfq545 ALBUMIN 4.6 g/dL 05/15/2016 Comp Metabolic Uix620 TPRO 8.1 g/dL 05/15/2016 Comp Metabolic Cdh338 GLOB 3.5 g/dL 05/15/2016 Comp Metabolic Wcg856 A/G Ratio 1.3 Ratio 05/15/2016 Comp Metabolic Oje086 Osmo 276 mOsmo 05/15/2016 Review of Systems [...] of skin Location: face 05/04/2017 patch left gnosticist Full Exam - General 1994 Constitutional general [...] Codes Date TRIAMCINOLONE ACET INJ NOS CPT-4: A5422Witeorf THER/PROPH/DIAG INJ SC/IM CPT-4: 40165Uckwxwt TRIAMCINOLONE ACET INJ NOS CPT-4: D8412Desoqgu ROCEPHIN, PER 250 MG CPT-4: Q1405Ndehkth ROCEPHIN, PER 250 MG CPT-4: Q2553Txaapig 12/2015 URINALYSIS NONAUTO W/O SCOPE CPT-4: 96602Csjgouy TRIAMCINOLONE ACET INJ NOS CPT-4: U9477Ykulqpu Vital Signs Date Vital 05/17/2017 Blood Pressure 1: 142/92 Code : 8480-6 BMI: 31.8 Code : 04374-3 Heart Rate 1 : 102 bpm Height: [...] Code : 8480-6 BMI: 31.8 Code : 61796-0 Heart Rate 1 : 85 bpm Height: 6'2" SpO2: 96% Temperature: 36.6 (C) / 97.9 (F) Weight: 248 lbs 02/12/2017 Blood Pressure 1: 126/76 Code : 8480-6 BMI: 31.8 Code : 68865-4 Heart Rate 1 : 106 bpm Height: 6'2" SpO2: 91% Weight: 248 lbs 02/05/2017 Blood Pressure 1: 146/86 Code : 8480-6 BMI: 31.9 Code : 77493-0 Heart Rate 1 : 98 bpm Height: 6'2" SpO2: 87% Temperature: 36.7 (C) / 98.0 (F) Weight: 248 lbs 8 oz 01/29/2017 Blood Pressure 1: 132/84 Code : 8480-6 BMI: 31.8 Code : 75167-1 Heart Rate 1 : 83 bpm Height: 6'2" SpO2: 97% Weight: 248 lbs 10/13/2016 Blood Pressure 1: 128/72 Code : 8480-6 Heart Rate 1: 86 bpm SpO2: 94% 10/09/2016 Blood Pressure 1: 128/68 Code : 8480-6 Heart Rate 1: 136 bpm SpO2: 94% Temperature: 36.8 (C) / 98.2 (F) 10/06/2016 Blood Pressure 1: 140/80 Code : 8480-6 BMI: 32.1 Code : 34570-4 Heart Rate 1 : 94 bpm Height: 6'2" SpO2: 95% Weight: 250 lbs 07/18/2016 Blood Pressure 1: 128/86 Code : 8480-6 BMI: 32.1 Code : 60021-0 Heart Rate 1 : 89 bpm Height: 6'2" SpO2: 96% Weight: 250 lbs 06/22/2016 Blood Pressure 1: 118/70 Code : 8480-6 BMI: 32.1 Code : 12449-0 Heart Rate 1 : 70 bpm Height: 6'2" SpO2: 97% Weight: 250 lbs 05/23/2016 Blood Pressure 1: 128/80 Code : 8480-6 BMI: 32.1 Code : 39146-8 Heart Rate 1 : 76 bpm Height: 6'2" SpO2: 98% Weight: 250 lbs 05/15/2016 Blood Pressure 1: 110/90 Code : 8480-6 BMI: 31.3 Code : 66322-1 Heart Rate 1 : 111 bpm Height: 6'2" SpO2: 97% Temperature: 36.6 (C) / 97.8 (F) Weight: 244 lbs 01/20/2016 Blood Pressure 1: 128/76 Code : 8480-6 BMI: 33.0 Code : 92115-9 Heart Rate 1 : 103 bpm Height: [...] data Encounters Encounter Performer Location Codes Date ([id number]) 68306 EST. PATIENT, LEVEL III Diagnosis: Type 2 diabetes mellitus with hyperglycemia[ICD10: E11.65] Diagnosis: Insect bite (nonvenomous) of abdominal wall, initial encounter[ICD10 : S30.861A] [facility] CPT-4: 91380 05/17/2017 ([id number]) 96520 EST. PATIENT, LEVEL III Diagnosis: Allergic contact dermatitis due to plants, except food[ICD10: L23.7] [facility] CPT-4: 72612 05/04/2017 ([id number]) 63385 EST. PATIENT, LEVEL III Diagnosis: Essential (primary) hypertension[ICD10: I10] Marcela Ha MD [facility] CPT-4: 43376 03/15/2017 ([id number]) 83647 EST. PATIENT, LEVEL III Diagnosis: Cough[ICD10: R05] Diagnosis: Essential (primary) hypertension[ICD10: I10] Marcela Ha MD [facility] CPT-4: 06644 03/01/2017 ([id number]) 91117 EST. PATIENT, LEVEL III Diagnosis: Cough[ICD10: R05] Diagnosis: Nasal congestion[ICD10: R09.81] Diagnosis: Acute recurrent maxillary sinusitis[ICD10: J01.01] Marcela Ha MD [facility] CPT-4: 67077 02/16/2017 ([id number]) 19533 EST. PATIENT, LEVEL III Diagnosis: Type 2 diabetes mellitus with hyperglycemia[ICD10: E11.65] Marcela Ha MD [facility] CPT-4: 39734 02/12/2017 ([id number]) 04603 EST. PATIENT, LEVEL IV Diagnosis: Type 2 diabetes mellitus with hyperglycemia[ICD10: E11.65] Diagnosis: Muscle weakness (generalized)[ICD10: M62.81] Diagnosis: Disorientation, unspecified[ICD10: R41.0] Marcela Ha MD [facility] CPT-4: 38302 02/05/2017 ([id number]) Patient admitted to the hospital from clinic (NO CHARGE) Diagnosis: Type 2 diabetes mellitus with hyperglycemia[ICD10: E11.65] Diagnosis: Disorientation, unspecified[ICD10: R41.0] Diagnosis: Muscle weakness (generalized)[ICD10: M62.81] Marcela Ha MD [facility] CPT-4: 39200C 01/29/2017 ([id number]) Miscellaneous no charge Diagnosis: Cellulitis of right lower limb[ICD10: L03.115] Marcela Ha MD [facility] CPT-4: 13394 10/13/2016 ([id number]) Miscellaneous no charge Diagnosis: Type 2 diabetes mellitus with foot ulcer[ICD10: E11.621] Diagnosis: Pain in right foot[ICD10: M79.671] Marcela Ha MD, [facility] CPT-4: 89250 10/09/2016 57246 EST. PATIENT, LEVEL II Diagnosis: Cellulitis of right lower limb[ICD10: L03.115] Marcela Ha MD, [facility] CPT-4: 14174 10/06/2016 ([id number]) 24015 EST. PATIENT, LEVEL IV Diagnosis: Low back pain[ICD10: M54.5] Diagnosis: Other deformities of toe(s) (acquired), left foot[ICD10: M20.5X2] Diagnosis: Type 2 diabetes mellitus with foot ulcer[ICD10: E11.621] Marcela Ha MD , [facility] CPT-4: 47623 07/18/2016 ([id number]) 08099 EST. PATIENT, LEVEL III Diagnosis: Type 2 diabetes mellitus with hyperglycemia[ICD10: E11.65] Marcela Ha MD, [facility] CPT-4: 01095 06/22/2016 ([id number]) 96396 EST. PATIENT, LEVEL IV Diagnosis: Type 2 diabetes mellitus with hyperglycemia[ICD10: E11.65] Diagnosis: Mixed hyperlipidemia[ICD10: E78.2] Diagnosis: Other hemoglobinopathies[ICD10: D58.2] Marcela Ha MD, [facility] CPT-4: 08189 05/23/2016 ([id number]) 04033 EST. PATIENT, LEVEL IV Diagnosis: Type 2 diabetes mellitus with other specified complication[ICD10: E11.69] Diagnosis: Dehydration[ICD10: E86.0] Marcela Ha MD, [facility] CPT-4: 16152 05/15/2016 ([id number]) OFFICE VISIT, NEW - LEVEL 3 Diagnosis: Allergic contact dermatitis due to plants, except food[ICD10: L23.7] Madeline Ha MD, [facility] CPT-4: 05906 01/20/2016 Plan of Care Planned Activity Notes [...] Center. 05/04/2017 Appointment: Marcela Oshea WPtel: [facility]5 [facility] [place] [address] (30 min) Complex 05/04/2017 Patient Education: Patient Medication Summary Completed 05/04/2017 Visit Plan: Hypertension - well controlled - continue with current medications , continue with no added salt diet. Pt has been encouraged to exercise daily.The pt has been advised to call the office if there are any acute concerns about change in blood pressure readings at home.Cough-resolved 2016 Appointment: Marcela Oshea WPtel: [facility]5 [facility] [place] [address] (15 min) Moderate 03/15/2017 Patient Education: Patient Medication Summary Completed 03/15/2017 Appointment: Marcel[facility]she[facility] WPtel[phone] (30 min) Complex 03/12/2017 Visit Plan: [...] discussed 02/16/2017 Appointment: Marcela Oshea WPtel: [address] (15 min) Moderate 02/16/2017 Patient Education: [...] controlled. 02/12/2017 Appointment: Marcela Oshea WPtel: [phone] [facility] [place] [address] (30 min) Complex 02/12/2017 Patient Education: Patient Medication Summary Completed 02/12/2017 Appointment: Marcela Oshea WPtel: [phone] [phone] (30 min) Complex 02/06/2017 Visit Plan: [...] glucose readings are starting to become less controlled.Plwalzgid-anbjjrwx-bbuojgaq to monitor Generalized weakness-refer for PT-patient refuses today but will consider 01/2017 Appointment: Marcela Oshea WPtel: [phone] [facility] [place] [address] (30 min) Complex 02/05/2017 Patient Education: Patient Medication Summary Completed 02/05/2017 Appointment: Marcela Oshea WPtel: [phone] [place] (30 min) Complex 01/30/2017 Visit Plan: Acute confusion-uncontrolled diabetes-chronically noncompliant with treatment and stopped his insulin several months ago-r/o stroke vs DKA-Dr Ha in to evaluate patient-plan to admit for further work up and treatment- patient's called and she transported him to the hospital 01/29/2017 Appointment: Marcela Oshea WPtel: [phone] [place] (30 min) Complex 01/29/2017 Patient Education: Patient Medication Summary Completed 01/29/2017 Patient Education: Obesity Completed 01/29/2017 Visit Plan: Right foot pain-MRI shows foreign body-appt with Dr Grewal for evaluation on Sunday. 10/13/2016 Appointment: Marcela Oshea WPtel: [phone] [place] (15 min) Moderate 10/13/2016 Patient Education: Patient Medication Summary Completed 10/13/2016 Appointment: Marcela Oshea WPtel: [phone] [place] (30 min) Complex 10/12/2016 Visit Plan: Right foot yrnz-qqwgpubk-oxvus washer dropped on foot-xray negative but pain continues to increase-recommend MRI of foot for further evaluation-refer to wound care for lesions on right foot, patient has diabetes and history of osteomyelitis-culture obtained today-continue oral abx-follow up in the office on , sooner if needed 10/09/2016 Visit Plan: Right foot vqvs-fojazesa-kqqsm washer dropped on foot-xray negative but pain continues to increase-recommend MRI of foot for further evaluation-refer to wound care for lesions on right foot, patient has diabetes and history of osteomyelitis-culture obtained today-continue oral abx-follow up in the office on , sooner if needed 10/09/2016 Visit Plan: Right foot hfif-ouzcyhdn-zurbb washer dropped on foot-xray negative but pain continues to increase-recommend MRI of foot for further evaluation-refer to wound care for lesions on right foot, patient has diabetes and history of osteomyelitis-culture obtained today-continue oral abx-follow up in the office on , sooner if needed 10/09/2016 Appointment: Marcela Oshea WPtel: [facility] [address] (30 min) Complex 10/09/2016 Patient Education: Patient Medication Summary Completed 10/09/2016 Visit Plan: Cellulitis - continue with oral antibiotics as previously directed , return to clinic as previously directed, call for acute change in symptoms, worsening redness, warmth, discharge. 10/06/2016 Appointment: Marcela Oshea WPtel: [facility] [place] [phone] (10 min) Simple 10/06/2016 Patient Education: Patient Medication Summary Completed 10/06/2016 Appointment: Marcela Oshea WPtel: [address] [place], [place] [phone] (30 min) Complex 08/24/2016 Referral: Sun Glynn Referral Completed 07/21/2016 Visit Plan: Low back pain- history of spinal fusion-patient for xray lumbar spine-RX sent to [facility] and instructed on use-topical voltaren samples provided and instructed on use. Ok to use tylenol as needed as well. The patient is to call the office if the pain is worsening or does not improve. Pressure ulcer left 4th toe-refer to Dr Glynn for evaluation 07/18/2016 Appointment: Marcela Oshea WPtel: [address] [place], [place] [phone] (30 min) Complex 07/18/2016 Patient Education: Patient Medication Summary Completed 07/18/2016 Patient Education: Obesity Completed 07/18/2016 Care Plan: Referral Order SNOMED-CT : [id number] Pending 07/18/2016 Visit Plan: Diabetes Mellitus - [...] control. 06/22/2016 Appointment: Marcela Oshea WPtel: [phone] [phone] (30 min) Complex 06/22/2016 Patient Education: [...] today 05/23/2016 Appointment: Marcela Oshea WPtel: [phone] [phone] (30 min) Complex 05/23/2016 Patient Education: [...] of plan. 05/15/2016 Appointment: [facility]el[phone] [phone] (15 min) Moderate 05/15/2016 Patient Education: [...] blue rosieo called into [facility]. xray lumbar spine flexeril as needed voltaren gel ulcer left 4th toe-refer to [facility] . Low back pain- history of spinal fusion-patient for xray lumbar spine-RX sent to [facility] and instructed on use-topical voltaren [...] for fracture from injury . Right foot maky-olwxnous-nodgn washer dropped on foot-xray negative but pain [...] for fracture from injury . Right foot ssus-canfcbek-kupvs washer dropped on foot-xray negative but pain [...] for fracture from injury . Right foot nyrd-euaioyat-qlytb washer dropped on foot-xray negative but pain [...] readings are starting to become less controlled. Wtkuvmesc-uichrvfb-wkaqyleo to monitor Generalized weakness-refer for PT-patient refuses [...]
--- NOTE | 2019-03-10 09:25 | ED Chest Pain ---
General Chief Complaint: Chest Pain Stated Complaint: CHEST PAIN Nursing Triage Note: PT STATES CHEST PAIN AND HEADACHE THAT STARTED SUNDAY, SAW HIS DR AND HAD SOME MEDS CHANGED, WAS STARTED ON METOPROLOL 25 MG AND HAD HIS VALSARTAN CUT IN HALF TO 40 MG. PT WAS SEEN THERE THE WEEK BEFORE FOR CP AND HEADACHE AND AGAIN SUNDAY. Nursing Sepsis Screen: No Definite Risk Source: patient Exam Limitations: no limitations History of Present Illness Date Seen by Provider: March 10, 2019 Time Seen by Provider: 08:45 Initial Comments Here with both chest pain and headache that are both on the left side and has been going on for a couple of days. Worse today. Had recent medication changes decreasing valsartan to 40 mg daily and initiated on metoprolol 25 mg daily. Does have history of cardiac disturbance as well as stroke in the past. Denies fevers but states that he had chills yesterday. He is on aspirin and Brilinta. Denies nausea or vomiting. States he has decreased sensation on the left slightly. Able to talk and walk. Describes chest pain as tightness in encompasses left-sided and radiates to the right side. Describes headache as throbbing on the left side. Pain is worse with sitting up and better with lying back. Timing/Duration: 2-3 days Severity/Quality: moderate, tightness Location: central Radiation: other (across chest) Activities at Onset: none Prior CP/Workup: cardiac cath, echocardiography Modifying Factors: improves with lying down, improves with rest ASA po QC ANALYST: No NTG SL QC ANALYST: No Associated Symptoms: No abdominal pain, No back pain; fever/chills, headache; No nausea/vomiting, No shortness of breath; weakness Allergies and Home Medications Allergies Coded Allergies: linezolid (Verified Allergy, Unknown, 05/28/18) Home Medications Acetaminophen 500 Mg Tablet, 1,000 MG PO HS, (Reported) TAKES 2 (500MG) TABLETS Amoxicillin/Potassium Clav 1 Each Tablet, 1 TAB PO TID, (Reported) 10 DAY THERAPY FILLED 12-26-18 Aspirin 81 Mg Tablet., 81 MG PO DAILY Prescribed by: ROSA MARIA PRADO on 05/31/18 104 Atorvastatin Calcium 80 Mg Tablet, 80 MG PO DAILY, (Reported) Carvedilol 6.25 Mg Tablet, 6.25 MG PO BID Prescribed by: ROSA MARIA PRADO on 05/31/18 1042 Clonazepam 1 Mg Tablet, 2 MG PO HS, (Reported) TAKES 2 (1 MG) TABLETS Insulin Aspart 300 Units/3 Ml Solution, 10 UNITS SC TIDAC, (Reported) Insulin Degludec 200 Unit/1 Ml Insuln.pen, 50 UNITS SC DAILY, (Reported) Multivitamin 1 Each Tablet, 1 TAB PO DAILY, (Reported) Pantoprazole Sodium 40 Mg Tablet.dr, 40 MG PO DAILY, (Reported) Pregabalin 50 Mg Capsule, 50 MG PO HS, (Reported) Ticagrelor 90 Mg Tablet, 90 MG PO BID Prescribed by: ROSA MARIA PRADO on 05/31/18 1042 Valsartan 80 Mg Tablet, 40 MG PO DAILY TAKES 1/2 (80MG) TABLET -take bp prior to medication and hold if blood pressure is less than 110 on top number Prescribed by: ROSA MARIA PRADO on 01/03/19 09 [Nitroglycerin] 0.4 MG BTL, 0 MG SL UD PRN for CHEST PAIN Prescribed by: ROSA MARIA PRADO on 01/03/19 0953 Patient Home Medication List Home Medication List Reviewed: Yes Review of Systems Review of Systems Constitutional: see HPI, chills; No fever; malaise, weakness EENTM: No Symptoms Reported Respiratory: No Symptoms Reported Cardiovascular: See HPI, Chest Pain; Denies Edema, Denies Irregular Heart Rate Gastrointestinal: Denies Diarrhea, Denies Nausea, Denies Vomiting Genitourinary: No Symptoms Reported Musculoskeletal: No back pain, No muscle stiffness, No neck pain Skin: no symptoms reported Psychiatric/Neurological: See HPI, Headache, Numbness, Weakness Endocrine: No Symptoms Reported All Other Systems Reviewed Negative Unless Noted: Yes Past Whabmcl-Xkrgst-Hvykpa Hx Past Med/Social Hx: Reviewed Nursing Past Med/Soc Hx Patient Social History Alcohol Use: Denies Use Recreational Drug Use: No Smoking Status: Never a Smoker 2nd Hand Smoke Exposure: No Recent Foreign Travel: No Contact w/Someone Who Travel: No Recent Infectious Disease Expo: No Recent Hopitalizations: Yes (JANUARY 2019 HEART STENT) Immunizations Up To Date Tetanus Booster (TDap): Unknown PED Vaccines UTD: No Date of Pneumonia Vaccine: Jan 02, 2011 Date of Influenza Vaccine: Aug 07, 2018 Seasonal Allergies Seasonal Allergies: No Past Medical History Surgeries: Yes (ACL; Wrist; Heart stents) Abdominal, Amputation, Appendectomy, Gallbladder, Orthopedic, Tonsillectomy Respiratory: No Currently Using CPAP: No Currently Using BIPAP: No Cardiac: Yes (Heart stents) Coronary Artery Disease, Heart Attack, High Cholesterol, Hypertension Neurological: Yes Neuropathy, Stroke Reproductive Disorders: No Sexually Transmitted Disease: No HIV/AIDS: No Genitourinary: No Kidney Stones Gastrointestinal: Yes Abdominal Hernia Musculoskeletal: Yes (OSTEOMYELITIS WITH MULTIPLE TOE AMPUTATIONS, BACK FUSION X3) Degenerate Disk Disease, Arthritis, Chronic Back Pain Endocrine: Yes Diabetes, Insulin dep HEENT: No Loss of Vision: Bilateral Hearing Impairment: Denies Cancer: No Psychosocial: Yes Anxiety, Depression Integumentary: No Blood Disorders: No Adverse Reaction/Blood Tranf: No Family Medical History Reviewed Nursing Family Hx Family history: Cardiovascular disease 19 FATHER Family history: Diabetes mellitus 19 MOTHER Heart Disease, Diabetes, Hypertension, Psychiatric Problems, Renal Disease, Vascular Disease Physical Exam Vital Signs Vital Signs - First Documented 03/10/19 08:41 Temp 96.0 Pulse 64 Resp 22 B/P (MAP) 146/94 (111) Pulse Ox 99 O2 Delivery Room Air Capillary Refill : Less Than 3 Seconds Height, Weight, BMI Height: 6'4.00" Weight: 255lbs. 0.0oz. [id number]; 31.7 BMI Method:Stated General Appearance: No Apparent Distress, Mild Distress HEENT: PERRL/EOMI, Pharynx Normal Neck: Non Tender, Supple Respiratory: Lungs Clear, Normal Breath Sounds Cardiovascular: Regular Rate, Rhythm, No Murmur Gastrointestinal: Non Tender, Soft Extremity: Normal Range of Motion, Non Tender Neurologic/Psychiatric: Alert, Depressed Affect, Motor Weakness (global), Sensory Deficit (reports slightly decreased on the left versus right on the face , arm and leg.) Skin: Normal Color, Warm/Dry Focused Exam Lactate Level 03/10/19 09:04: Lactic Acid Level 1.87 Lactic Acid Level Laboratory Tests Test 03/10/19 09:04 Lactic Acid Level 1.87 MMOL/L (0.50-2.00) Progress/Results/Core Measures Results/Orders Lab Results Laboratory Tests Test 03/10/19 08:40 03/10/19 09:04 03/10/19 11:45 Range/Units White Blood Count 6.2 4.3-11.0 10^3/uL Red Blood Count 5.39 4.35-5.85 10^6/uL Hemoglobin 16.2 13.3-17.7 G/DL Hematocrit 47 40-54 % Mean Corpuscular Volume 87 80-99 FL Mean Corpuscular Hemoglobin 30 25-34 PG Mean Corpuscular Hemoglobin Concent 35 32-36 G/DL Red Cell Distribution Width 13.6 10.0-14.5 % Platelet Count 153 130-400 10^3/uL Mean Platelet Volume 10.5 H 7.4-10.4 FL Neutrophils (%) (Auto) 50 42-75 % Lymphocytes (%) (Auto) 40 12-44 % Monocytes (%) (Auto) 9 0-12 % Eosinophils (%) (Auto) 1 0-10 % Basophils (%) (Auto) 0 0-10 % Neutrophils # (Auto) 3.1 1.8-7.8 X 10^3 Lymphocytes # (Auto) 2.5 1.0-4.0 X 10^3 Monocytes # (Auto) 0.6 0.0-1.0 X 10^3 Eosinophils # (Auto) 0.1 0.0-0.3 10^3/uL Basophils # (Auto) 0.0 0.0-0.1 10^3/uL Prothrombin Time 12.6 12.2-14.7 SEC INR Comment 0.9 0.8-1.4 Activated Partial Thromboplast Time 30 24-35 SEC D-Dimer 0.67 H 0.00-0.49 UG/ML Sodium Level 141 135-145 MMOL/L Potassium Level 4.4 3.6-5.0 MMOL/L Chloride Level 105 98-107 MMOL/L Carbon Dioxide Level 25 21-32 MMOL/L Anion Gap 11 5-14 MMOL/L Blood Urea Nitrogen 16 7-18 MG/DL Creatinine 1.06 0.60-1.30 MG/DL Estimat Glomerular Filtration Rate > 60 BUN/Creatinine Ratio 15 Glucose Level 110 H 70-105 MG/DL Calcium Level 9.7 8.5-10.1 MG/DL Corrected Calcium 9.6 8.5-10.1 MG/DL Magnesium Level 2.2 1.8-2.4 MG/DL Total Bilirubin 1.3 H 0.1-1.0 MG/DL Aspartate Amino Transf (AST/SGOT) 38 H 5-34 U/L Alanine Aminotransferase (ALT/SGPT) 50 0-55 U/L Alkaline Phosphatase 89 40-136 U/L Myoglobin 65.1 10.0-92.0 NG/ML Troponin I < 0.028 <0.028 NG/ML C-Reactive Protein High Sensitivity 0.03 0.00-0.50 MG/DL Total Protein 7.6 6.4-8.2 GM/DL Albumin 4.1 3.2-4.5 GM/DL Lactic Acid Level 1.87 0.50-2.00 MMOL/L Urine Color YELLOW Urine Clarity CLEAR Urine pH 7 5-9 Urine Specific Jackson 1.010 L 1.016-1.022 Urine Protein 1+ H NEGATIVE Urine Glucose (UA) NEGATIVE NEGATIVE Urine Ketones NEGATIVE NEGATIVE Urine Nitrite NEGATIVE NEGATIVE Urine Bilirubin NEGATIVE NEGATIVE Urine Urobilinogen NORMAL NORMAL MG/DL Urine Leukocyte Esterase NEGATIVE NEGATIVE Urine RBC (Auto) NEGATIVE NEGATIVE Urine RBC NONE /HPF Urine WBC RARE /HPF Urine Squamous Epithelial Cells 0-2 /HPF Urine Crystals NONE /LPF Urine Bacteria NEGATIVE /HPF Urine Casts NONE /LPF Urine Mucus NEGATIVE /LPF Urine Culture Indicated NO My Orders Orders - VJ FONTANEZ MD Cbc With Automated Diff (03/10/19 08:44) Magnesium (03/10/19 08:44) Chest 1 View, Ap/Pa Only (03/10/19 08:44) Ekg Tracing (03/10/19 08:44) Cardiac Profile 1 (03/10/19 08:44) Comprehensive Metabolic Panel (03/10/19 08:44) Myoglobin Serum (03/10/19 08:44) Protime With Inr (03/10/19 08:44) Partial Thromboplastin Time (03/10/19 08:44) O2 (03/10/19 08:44) Monitor-Rhythm Ecg Trace Only (03/10/19 08:44) Lipid Panel (03/11/19 06:00) Ed Iv/Invasive Line Start (03/10/19 08:44) Aspirin Chewable Tablet (Baby Aspirin Ch (03/10/19 08:45) Aspirin Chewable Tablet (Baby Aspirin Ch (03/10/19 08:43) Vital Signs Stroke Patient Q15M (03/10/19 08:59) Ct Head Wo-R/O Stroke (03/10/19 08:59) Dysphagia Screening Tool (03/10/19 08:59) Lactic Acid Analyzer (03/10/19 08:59) Ua Culture If Indicated (03/10/19 08:59) Blood Culture (03/10/19 08:59) Hs C Reactive Protein (03/10/19 09:39) Fibrin Degradation Products (03/10/19 09:39) Fentanyl Injection (Sublimaze Injection (03/10/19 09:41) Ketorolac Injection (Toradol Injection) (03/10/19 10:45) Diphenhydramine Injection (Benadryl Inje (03/10/19 10:45) Promethazine Injection (Phenergan Injec (03/10/19 10:45) Ns Iv 1000 Ml (Sodium Chloride 0.9%) (03/10/19 10:45) Dexamethasone Injection (Decadron Inject (03/10/19 12:00) Medications Given in ED Current Medications Medications Dose Ordered Sig/Aylin Route Start Time Stop Time Status Last Admin Dose Admin Aspirin 324 mg ONCE ONCE PO 03/10/19 08:45 03/10/19 08:46 DC 03/10/19 08:48 324 MG Dexamethasone Sodium Phosphate 10 mg ONCE ONCE IV 03/10/19 12:00 03/10/19 12:01 DC 03/10/19 11:58 10 MG Diphenhydramine HCl 25 mg ONCE ONCE IV 03/10/19 10:45 03/10/19 10:47 DC 03/10/19 11:00 25 MG Vital Signs/I&O 03/10/19 03/10/19 03/10/19 03/10/19 08:41 08:48 09:48 11:00 Temp 96.0 96.0 96.0 96.0 Pulse 64 Resp 22 B/P (MAP) 146/94 (111) Pulse Ox 99 O2 Delivery Room Air Blood Pressure Mean: 111 Progress Progress Note : Progress Note Seen and evaluated. Patient is a mixed presentation including both cardiac and stroke concerns. IV, labs, x-ray, EKG, CT head, blood cultures, lactic acid and UA ordered. ASA 324 mg by mouth given. Monitor patient. Fentanyl 50 g IV ordered for headache. Monitor patient. Patient did receive Toradol 30 mg IV, Benadryl 25 mg IV and Phenergan 25 mg IV for headache. This did not initially help and Decadron 10 mg IV was given. Labs and radiological evaluation was negative. No significant findings on EKG 1250: Patient is actually feeling better after Decadron and pain is down to 3 or less now and feels like he can tolerate this at home. I did discuss all the findings with the patient and his . Discharged home with return precautions. Patient verbalize understanding instructions and agreement with plan. Initial ECG Impression Date: March 10, 2019 Initial ECG Impression Time: 08:24 Initial ECG Rate: 63 Initial ECG Rhythm: Normal Sinus Comment Sinus rhythm with left axis deviation. Probable anteroseptal infarct. No evidence of ST elevation NV. Similar to previous of 01/03/19. Interpreted by me. Diagnostic Imaging Diagonstic Imaging: CT Plain Films/CT/US/NM/MRI: head Comments [facility] [place], [place] NAME: LUIS BARRERA [place] REC#: [id number] PT STATUS: REG ER : 1960 PHYSICIAN: VJ FONTANEZ MD ADMIT DATE: 03/10/19/ER Draft Date of Exam:03/10/19 CT HEAD WO-R/O STROKE PROCEDURE: CT head wo r/o stroke. TECHNIQUE: Multiple contiguous axial images were obtained through the brain without the use of intravenous contrast. Auto Exposure Controls were utilized during the CT exam to meet ALARA standards for radiation dose reduction. INDICATION: Headache and chest pain. Comparison is made with prior CT head from 01/29/2017. FINDINGS: The ventricles and sulci are within normal limits. No sulcal effacement, midline shift or hemorrhage is detected. Cisterns are patent. Visualized paranasal sinuses are clear. IMPRESSION: No acute intracranial process is detected. Results were discussed with Dr. Fontanez prior to this dictation. Dictated on workstation # [id number] Dict: 03/10/19923 Trans: 03/10/19 0998 KB [id number] Interpreted by: ERASTO MONZON MD Electronically signed by: Diagonstic Imaging: Xray Plain Films/CT/US/NM/MRI: chest Comments [facility]. [place], [place] NAME: BRUCELUIS K MED REC#: [id number] PT STATUS: REG ER : 1960 PHYSICIAN: VJ FONTANEZ MD ADMIT DATE: 03/10/19/ER Draft Date of Exam:03/10/19 CHEST 1 VIEW, AP/PA ONLY INDICATION: Chest pain. COMPARISON: 01/01/2019 FINDINGS: Single frontal view of the chest demonstrates normal heart size and pulmonary vascularity. The lungs are well aerated and clear. No large pleural effusion or pneumothorax is seen. The visualized osseous structures show no acute abnormalities. IMPRESSION: 1. No acute cardiopulmonary process. Dictated on workstation # [id number] Dict: 03/10/19 0942 Trans: 03/10/19 0943 KB [id number] Interpreted by: MARCOS ARVIZU MD Electronically signed by: Departure Impression Primary Impression: Chest pain Qualified Codes: R07.9 - Chest pain, unspecified Additional Impression: Headache Qualified Codes: R51 - Headache Disposition: 01 HOME, SELF-CARE Condition: Improved Departure-Patient Inst. Decision time for Depature: 12:58 Referrals: ROSA MARIA PRADO MD (PCP/Family) Primary Care Physician Patient Instructions: Chest Pain (DC), Headache, Adult (DC) Add. Discharge Instructions: All discharge instructions reviewed with patient and/or family. Voiced understanding. You may take ibuprofen 600 mg every 8 hours as needed for pain. You may also take Tylenol/acetaminophen 1000 mg every 8 hours as needed for pain. Plenty of fluids. Follow-up with your doctor this week for recheck. Return for worse pain , fever, vomiting, weakness, breathing problems or other concerns as needed. Copy Copies To 1: Chris RANKIN MD Copies To 2: ROSA MARIA PRADO MD, TIMOTHY D MD March 10, 2019 09:24
--- OUTSIDE RECORDS SUMMARY | 2019-03-10 09:25 | XMS REPORT | CCD ---
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 Name Role Phone PP Unavailable CCM Unavailable Summary Purpose Interface Exchange Insurance Providers Payer name Policy type / Coverage type Covered constitution party ID Effective Begin Date Effective End Date Blue Cross Blue Shield [facility] Blue Cross/Blue Shield [id number] Unknown Family history Father Diagnosis Age At Onset Hyperlipidemia Unknown Heart Attack Unknown Mother Diagnosis Age At Onset Hypertension Unknown Social History Social History Element Codes Description Effective Dates Marital status Unknown Mignon 01/20/2016 Number of children Unknown 4 01/20/2016 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/[address]: 941852960 Never smoker 01/20/[address]: 177174169 Never drinks alcohol 01/20/2016 Allergies, Adverse Reactions, Alerts Allergies, Adverse Reactions, Alerts data not found Past Medical History Illness Codes Condition Status Onset Date Resolved Date Diabetes Unknown Active 05/04/2017 Unknown Allergic contact [...] Problems Condition Codes Effective Dates Condition Status Diabetes Unknown 05/04/2017 Active Allergic contact dermatitis [...] Instructions doxycycline hyclate 100 mg capsule RxNorm: 8708518 1 Capsule(s) PO BID 05/11/2017 05/20/2017 Active losartan 25 mg tablet RxNorm: 196121 1 Tablet(s) PO daily 201606/28/2017 Active atorvastatin 40 mg tablet RxNorm: 609979 1 Tablet(s) PO daily 03/01/2017 08/27/2017 Active clopidogrel 75 mg tablet RxNorm: 236097 1 Tablet(s) PO daily 08/27/2017 Active Flonase Allergy Relief 50 mcg/actuation nasal spray, suspension RxNorm: 2629137 2 [place] NASAL daily 02/16/20172016 Inactive Augmentin 875 mg-125 mg tablet RxNorm: 109653 1 Tablet(s) PO BID 02/16/2017 02/22/2017 Inactive GET PROBIOTIC TO TAKE WHILE ON ABX Tamiflu 75 mg capsule RxNorm: 350657 1 Capsule(s) PO BID 201602/20/2017 Inactive ceftriaxone 500 mg solution for injection RxNorm: 0879130 1 Milliliter(s) Inj 02/16/2017 02/16/2017 Inactive Kenalog 40 mg/mL suspension for injection RxNorm: 4131440 1 Milliliter(s) Inj 02/16/2017 02/16/2017 Inactive Toujeo SoloStar 300 unit/mL (1.5 mL) subcutaneous insulin pen RxNorm: 5421668 25 Unit(s) SQ QAM 02/12/2017 06/11/2017 Active Toujeo SoloStar 300 unit/mL (1.5 mL) subcutaneous insulin pen RxNorm: 8146764 10 Unit(s) SQ QAM 02/05/2017 02/11/2017 Inactive lisinopril 10 mg tablet RxNorm: 661485 1 Tablet(s) PO daily 02/28/2017 Inactive atorvastatin 40 mg tablet RxNorm: 139165 1 Tablet(s) PO daily 02/01/2017 02/28/2017 Inactive doxycycline hyclate 100 mg capsule RxNorm: 3517102 1 Capsule(s) PO BID 02/01/2017 02/10/2017 Inactive clonazepam 1 mg tablet RxNorm: 479032 1 Tablet(s) PO Q8 as needed 10/09/2016 01/06/2017 Inactive ceftriaxone 1 gram solution for injection RxNorm: 4259573 Inj 10/06/2016 10/06/2016 Inactive cyclobenzaprine 10 mg tablet RxNorm: 611654 1/2-1 Tablet(s) PO TID PRN 07/18/2016 01/28/2017 Inactive clonazepam 1 mg tablet RxNorm: 397577 1 Tablet(s) PO Q8 as needed 05/31/2016 05/29/2016 Inactive clonazepam 1 mg tablet RxNorm: 574774 1 Tablet(s) PO Q8 as needed 05/31/2016 08/28/2016 Inactive Toujeo SoloStar 300 unit/mL (1.5 mL) subcutaneous insulin pen RxNorm: 6925800 10 Unit(s) SQ daily 05/23/2016 01/28/2017 Inactive Crestor 10 mg tablet RxNorm: 199552 1 Tablet(s) PO QHS 201501/28/2017 Inactive Crestor 10 mg tablet RxNorm: 114490 1 Tablet(s) PO QHS 201505/18/2016 Inactive clonazepam 1 mg tablet RxNorm: 557493 1 Tablet(s) PO Q8 as needed 04/25/2016 05/30/2016 Inactive prednisone 20 mg tablet RxNorm: 309343 3 Tablet(s) PO daily 06/201602/10/2016 Inactive prednisone 20 mg tablet RxNorm: 908633 3 Tablet(s) PO daily 06/201605/14/2016 Inactive Kenalog 40 mg/mL suspension for injection RxNorm: 2956737 Milliliter(s) Inj 01/20/2016 01/20/2016 Inactive acetaminophen 500 mg tablet RxNorm: 737561 1-2 Tablet(s) PO as needed No Start Date Active clopidogrel 75 mg tablet RxNorm: 380108 1 Tablet(s) PO daily No Start Date 02/28/2017 Inactive clonazepam 1 mg tablet RxNorm: 759688 1 Tablet(s) PO QHS No Start Date 04/24/2016 Inactive acyclovir 400 mg tablet RxNorm: 933776 2 Tablet(s) PO 5x daily No Start Date 02/28/2017 Inactive Medication Administered Medication Codes Instructions Start Date Status ceftriaxone 500 mg solution for injection RxNorm: 2855644 1Milliliter 02/16/2017 No longer Active Kenalog 40 mg/mL suspension for injection RxNorm: 2858366 1Milliliter 02/16/2017 No longer Active ceftriaxone 1 gram solution for injection RxNorm: 2188969 10/06/2016 No longer Active Kenalog 40 mg/mL suspension for injection RxNorm: 7518703 Milliliter 01/20/2016 No longer Active Immunizations No Immunization data Assessments Condition Codes Effective Dates Allergic contact dermatitis due to plants, except food ICD- 10: L23.7 ICD-9: 692.6 05/04/2017 Essential (primary) hypertension ICD-10: I10 ICD-9: 401.1 03/15/2017 Cough ICD-10: R05 ICD-9: 786.2 03/01/2017 Acute recurrent maxillary sinusitis ICD-10: J01.01 ICD-9: 461.0 02/16/2017 Nasal congestion ICD-10: R09.81 ICD-9: 478.19 02/16/2017 Type 2 diabetes mellitus with hyperglycemia ICD-10: E11.65 ICD-9: 250.00 02/12/2017 Muscle weakness (generalized) ICD-10: M62.81 ICD-9: 728.87 02/05/2017 Disorientation, unspecified ICD-10: R41.0 ICD-9: 293.0 02/05/2017 Cellulitis of right lower limb ICD-10: L03.115 ICD-9: 682.7 10/13/2016 Pain in right foot ICD-10: M79.671 ICD-9: 729.5 10/09/2016 Type 2 diabetes mellitus with foot ulcer ICD-10: E11.621 ICD-9: 250.80 10/09/2016 Low back pain ICD-10: M54.5 ICD-9: 724.2 07/18/2016 Other deformities of toe(s) (acquired), left foot ICD-10: M20.5X2 ICD-9: 735.5 07/18/2016 Other hemoglobinopathies ICD-10: 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.2 ICD-9: 282.7 05/23/2016 Mixed hyperlipidemia ICD-10: E78.2 ICD-9: 272.2 05/23/2016 Encounter for general adult medical examination without abnormal findings ICD-10: Z00.00 ICD-9: V70.0 05/17/2016 Type 2 diabetes mellitus with other specified complication ICD-10: E11.69 ICD-9: 250.80 05/15/2016 Dehydration ICD-10: E86.0 ICD-9: 276.51 05/15/2016 Reason For Visit Reason For Visit Effective Dates Notes rash 05/04/2017 cough 03/15/2017 cough 03/01/2017 dyspnea 02/16/2017 diabetes mellitus 02/12/2017 Hospital Follow Up 02/05/2017 possible stroke arm pain 01/29/2017 foot pain 10/09/2016 foot pain 10/06/2016 back pain 07/18/2016 diabetes mellitus 06/22/2016 diabetes mellitus 05/23/2016 fatigue 05/15/2016 anxiety 01/20/2016 Results Observation Observation Code Item Item Code Result Date %Hba1C Vid898 % HbA1c 18936-2 9.5 % 05/04/2017 %Hba1C Hmk851 Gluc Ave 226 mg/dL 05/04/2017 Tsh Ord6 [...] 31.7 pg 05/04/2017 Cbc With Differential Ord2 [place]% 8.5 % 05/04/2017 Cbc With Differential Ord2 [...] 2.48 K/ul 05/04/2017 Cbc With Differential Ord2 [place] ABS# 0.5 K/ul 05/04/2017 Cbc With Differential Ord2 Eos ABS# 0.1 K/ul 05/04/2017 Cbc With Differential Ord2 Baso ABS# 0.0 K/ul 05/04/2017 Comp Metabolic Ppo426 NA 135 mEq/L 05/04/2017 Comp Metabolic Ieg190 K 4.2 mEq/L 05/04/2017 Comp Metabolic Psq787 CL 99 mEq/L 05/04/2017 Comp Metabolic Axc443 CO2 26.0 mEq/L 05/04/2017 Comp Metabolic Vbj442 ANION GAP 14 05/04/2017 Comp Metabolic Epc406 GLUCOSE 277 mg/dL 05/04/2017 Comp Metabolic Xhy931 Creat 0.9 mg/dL 05/04/2017 Comp Metabolic Ezv558 eGFR 96 ml/min/1.73m2 05/04/2017 Comp Metabolic Kwr126 BUN 23 mg/dL 05/04/2017 Comp Metabolic Dat201 B/C Ratio 26.1 Ratio 05/04/2017 Comp Metabolic Sgo375 CALCIUM 8.9 mg/dL 05/04/2017 Comp Metabolic Ibl179 ALK PHOS 81 U/L 05/04/2017 Comp Metabolic Tlo899 AST(SGOT) 21 U/L 05/04/2017 Comp Metabolic Hra752 ALT(SGPT) 27 U/L 05/04/2017 Comp Metabolic Kpd490 BILI T 1.2 mg/dL 05/04/2017 Comp Metabolic Vce813 ALBUMIN 4.0 g/dL 05/04/2017 Comp Metabolic Vlr564 TPRO 6.7 g/dL 05/04/2017 Comp Metabolic Dwz419 GLOB 2.7 g/dL 05/04/2017 Comp Metabolic Rpj919 A/G Ratio 1.5 Ratio 05/04/2017 Comp Metabolic Fgl095 Osmo 284 mOsmo 05/04/2017 C A/B FLU 2053020 Influenza A Scr Negative 02/16/2017 C A/B FLU 9256707 Influenza B Scr Positive 02/16/2017 Cbc With [...] 39.7 % 05/23/2016 Cbc With Differential Ord2 [place]% 8.8 % 05/23/2016 Cbc With Differential Ord2 [...] 2.07 K/ul 05/23/2016 Cbc With Differential Ord2 [place] ABS# 0.5 K/ul 05/23/2016 Cbc With Differential Ord2 Eos ABS# 0.1 K/ul 05/23/2016 Cbc With Differential Ord2 Baso ABS# 0.0 K/ul 05/23/2016 Lipid Ord30 CHOL 397 mg/dL 05/17/2016 Lipid Ord30 HDL 48.0 mg/dl 05/17/2016 Lipid Ord30 TRIG 578 mg/dL 05/17/2016 Lipid Ord30 LDL Unable to calculate Due to elevated triglycerides mg/dL 05/17/2016 Lipid Ord30 C/HDL 8.3 Ratio 05/17/2016 %Hba1C Pjs578 % HbA1c 47619-1 12.4 % 05/16/2016 %Hba1C Pgf284 Gluc Ave 309 mg/dL 05/16/2016 Cbc With [...] 30.4 pg 05/15/2016 Cbc With Differential Ord2 [place]% 7.8 % 05/15/2016 Cbc With Differential Ord2 [...] 2.04 K/ul 05/15/2016 Cbc With Differential Ord2 [place] ABS# 0.5 K/ul 05/15/2016 Cbc With Differential Ord2 Eos ABS# 0.1 K/ul 05/15/2016 Cbc With Differential Ord2 Baso ABS# 0.0 K/ul 05/15/2016 Tsh Ord6 hTSH II 1.70 uIU/mL 05/15/2016 Comp Metabolic Sbj903 NA 135 mEq/L 05/15/2016 Comp Metabolic Vhm126 K 3.9 mEq/L 05/15/2016 Comp Metabolic Xpo902 CL 96 mEq/L 05/15/2016 Comp Metabolic Tfe157 CO2 27.0 mEq/L 05/15/2016 Comp Metabolic Udt401 ANION GAP 16 05/15/2016 Comp Metabolic Jkq938 GLUCOSE 183 mg/dL 05/15/2016 Comp Metabolic Lhf686 Creat 1.1 mg/dL 05/15/2016 Comp Metabolic Elv969 eGFR 71 ml/min/1.73m2 05/15/2016 Comp Metabolic Jcj446 BUN 17 mg/dL 05/15/2016 Comp Metabolic Lko056 B/C Ratio 14.9 Ratio 05/15/2016 Comp Metabolic Hex109 CALCIUM 9.6 mg/dL 05/15/2016 Comp Metabolic Zmx290 ALK PHOS 100 U/L 05/15/2016 Comp Metabolic Krm986 AST(SGOT) 20 U/L 05/15/2016 Comp Metabolic Muj273 ALT(SGPT) 20 U/L 05/15/2016 Comp Metabolic Oim245 BILI T 1.3 mg/dL 05/15/2016 Comp Metabolic Jdi217 ALBUMIN 4.6 g/dL 05/15/2016 Comp Metabolic Chr320 TPRO 8.1 g/dL 05/15/2016 Comp Metabolic Btk374 GLOB 3.5 g/dL 05/15/2016 Comp Metabolic Zfj797 A/G Ratio 1.3 Ratio 05/15/2016 Comp Metabolic Xxq992 Osmo 276 mOsmo 05/15/2016 Review of Systems System Result Effective Dates Dermatologic rash 05/04/2017 Constitutional No recent illness [...] of skin Location: face 05/04/2017 patch left alevism Full Exam - General 1994 Constitutional general [...] Codes Date TRIAMCINOLONE ACET INJ NOS CPT-4: R5523Skhtcya THER/PROPH/DIAG INJ SC/IM CPT-4: 99852Gfhnnrf TRIAMCINOLONE ACET INJ NOS CPT-4: T6838Fjorzfu ROCEPHIN, PER 250 MG CPT-4: L9280Chblxep ROCEPHIN, PER 250 MG CPT-4: L4128Msktwzl 12/2015 URINALYSIS NONAUTO W/O SCOPE CPT-4: 07379Qedfbvp TRIAMCINOLONE ACET INJ NOS CPT-4: R3968Gztsnxz Vital Signs Date Vital 05/04/2017 Blood Pressure 1: 144/92 Code : [...] Code : 8480-6 BMI: 31.8 Code : 48594-9 Heart Rate 1 : 85 bpm Height: 6'2" SpO2: 96% Temperature: 36.6 (C) / 97.9 (F) Weight: 248 lbs 02/12/2017 Blood Pressure 1: 126/76 Code : 8480-6 BMI: 31.8 Code : 22953-0 Heart Rate 1 : 106 bpm Height: 6'2" SpO2: 91% Weight: 248 lbs 02/05/2017 Blood Pressure 1: 146/86 Code : 8480-6 BMI: 31.9 Code : 48408-0 Heart Rate 1 : 98 bpm Height: 6'2" SpO2: 87% Temperature: 36.7 (C) / 98.0 (F) Weight: 248 lbs 8 oz 01/29/2017 Blood Pressure 1: 132/84 Code : 8480-6 BMI: 31.8 Code : 21299-5 Heart Rate 1 : 83 bpm Height: 6'2" SpO2: 97% Weight: 248 lbs 10/13/2016 Blood Pressure 1: 128/72 Code : 8480-6 Heart Rate 1: 86 bpm SpO2: 94% 10/09/2016 Blood Pressure 1: 128/68 Code : 8480-6 Heart Rate 1: 136 bpm SpO2: 94% Temperature: 36.8 (C) / 98.2 (F) 10/06/2016 Blood Pressure 1: 140/80 Code : 8480-6 BMI: 32.1 Code : 67094-7 Heart Rate 1 : 94 bpm Height: 6'2" SpO2: 95% Weight: 250 lbs 07/18/2016 Blood Pressure 1: 128/86 Code : 8480-6 BMI: 32.1 Code : 09289-0 Heart Rate 1 : 89 bpm Height: 6'2" SpO2: 96% Weight: 250 lbs 06/22/2016 Blood Pressure 1: 118/70 Code : 8480-6 BMI: 32.1 Code : 52044-8 Heart Rate 1 : 70 bpm Height: 6'2" SpO2: 97% Weight: 250 lbs 05/23/2016 Blood Pressure 1: 128/80 Code : 8480-6 BMI: 32.1 Code : 93242-8 Heart Rate 1 : 76 bpm Height: 6'2" SpO2: 98% Weight: 250 lbs 05/15/2016 Blood Pressure 1: 110/90 Code : 8480-6 BMI: 31.3 Code : 13667-7 Heart Rate 1 : 111 bpm Height: 6'2" SpO2: 97% Temperature: 36.6 (C) / 97.8 (F) Weight: 244 lbs 01/20/2016 Blood Pressure 1: 128/76 Code : 8480-6 BMI: 33.0 Code : 06582-0 Heart Rate 1 : 103 bpm Height: 6'2" SpO2: 95% Weight: 257 lbs Functional Status No Functional Status data History of Present Illness Symptom Name Status Result Effective Date Notes rash Location-Major in a generalized area 05/04/2017 [...] data Encounters Encounter Performer Location Codes Date ([id number]) 45601 EST. PATIENT, LEVEL III Diagnosis: Allergic contact dermatitis due to plants, except food[ICD10: L23.7] [facility] CPT-4: 77919 05/04/2017 ([id number]) 60329 EST. PATIENT, LEVEL III Diagnosis: Essential (primary) hypertension[ICD10: I10] [facility] CPT-4: 29572 03/15/2017 ([id number]) 96035 EST. PATIENT, LEVEL III Diagnosis: Cough[ICD10: R05] Diagnosis: Essential (primary) hypertension[ICD10: I10] Marcela Ha MD [facility] CPT-4: 36572 03/01/2017 ([id number]) 22659 EST. PATIENT, LEVEL III Diagnosis: Cough[ICD10: R05] Diagnosis: Nasal congestion[ICD10: R09.81] Diagnosis: Acute recurrent maxillary sinusitis[ICD10: J01.01] Marcela Ha MD [facility] CPT-4: 87270 02/16/2017 ([id number]) 92478 EST. PATIENT, LEVEL III Diagnosis: Type 2 diabetes mellitus with hyperglycemia[ICD10: E11.65] Marcela Ha MD [facility] CPT-4: 98552 02/12/2017 ([id number]) 35242 EST. PATIENT, LEVEL IV Diagnosis: Type 2 diabetes mellitus with hyperglycemia[ICD10: E11.65] Diagnosis: Muscle weakness (generalized)[ICD10: M62.81] Diagnosis: Disorientation, unspecified[ICD10: R41.0] Marcela Ha MD, [facility] CPT-4: 91699 02/05/2017 ([id number]) Patient admitted to the hospital from clinic (NO CHARGE) Diagnosis: Type 2 diabetes mellitus with hyperglycemia[ICD10: E11.65] Diagnosis: Disorientation, unspecified[ICD10: R41.0] Diagnosis: Muscle weakness (generalized)[ICD10: M62.81] Marcela Ha MD, [facility] CPT-4: 90345N 01/29/2017 ([id number]) Miscellaneous no charge Diagnosis: Cellulitis of right lower limb[ICD10: L03.115] Marcela Ha MD, [facility] CPT-4: 88091 10/13/2016 ([id number]) Miscellaneous no charge Diagnosis: Type 2 diabetes mellitus with foot ulcer[ICD10: E11.621] Diagnosis: Pain in right foot[ICD10: M79.671] Marcela Ha MD [facility] CPT-4: 74035 10/09/2016 01564 EST. PATIENT, LEVEL II Diagnosis: Cellulitis of right lower limb[ICD10: L03.115] Marcela Ha MD, [facility] CPT-4: 24207 10/06/2016 ([id number]) 47932 EST. PATIENT, LEVEL IV Diagnosis: Low back pain[ICD10: M54.5] Diagnosis: Other deformities of toe(s) (acquired), left foot[ICD10: M20.5X2] Diagnosis: Type 2 diabetes mellitus with foot ulcer[ICD10: E11.621] Marcela Ha MD , [facility] CPT-4: 90581 07/18/2016 ([id number]) 06150 EST. PATIENT, LEVEL III Diagnosis: Type 2 diabetes mellitus with hyperglycemia[ICD10: E11.65] Marcela Ha MD, [facility] CPT-4: 58641 06/22/2016 ([id number]) 67466 EST. PATIENT, LEVEL IV Diagnosis: Type 2 diabetes mellitus with hyperglycemia[ICD10: E11.65] Diagnosis: Mixed hyperlipidemia[ICD10: E78.2] Diagnosis: Other hemoglobinopathies[ICD10: D58.2] Marcela Ha MD, [facility] CPT-4: 13494 05/23/2016 ([id number]) 56720 EST. PATIENT, LEVEL IV Diagnosis: Type 2 diabetes mellitus with other specified complication[ICD10: E11.69] Diagnosis: Dehydration[ICD10: E86.0] Marcela Ha MD, [facility] CPT-4: 80100 05/15/2016 ([id number]) OFFICE VISIT, NEW - LEVEL 3 Diagnosis: Allergic contact dermatitis due to plants, except food[ICD10: L23.7] Madeline Ha MD, [facility] CPT-4: 37586 01/20/2016 Plan of Care Planned Activity Notes Codes Status Date Visit Plan: Poison Jana - pt is to use topical treatments as directed. Pt is cleanse clothing in hot water with soap, and call if symptoms do not improve or if they worsen.Kenalog injection today in the office-monitor blood sugars closely over the next 2-3 days-use calamine as directed-call if you want blue rosieo called into [facility]. 05/04/2017 Appointment: Marcela Oshea WPtel: [address] [place], [place] [phone] (30 min) Complex 05/04/2017 Patient Education: Patient Medication Summary Completed 05/04/2017 Visit Plan: Hypertension - well controlled - continue with current medications , continue with no added salt diet. Pt has been encouraged to exercise daily.The pt has been advised to call the office if there are any acute concerns about change in blood pressure readings at home.Cough-resolved 2016 Appointment: Marcela Oshea WPtel: [address] [place], [place] [phone] [place] [address] (15 min) Moderate 03/15/2017 Patient Education: Patient Medication Summary Completed 03/15/2017 Appointment: Marcela Oshea WPtel: [address] [place] [address] (30 min) Complex 03/12/2017 Visit Plan: Feng [...] Appointment: Marcela Oshea WPtel: [phone] (15 min) Moderate 02/16/2017 Patient Education: Patient [...] less controlled. 02/12/2017 Appointment: Marcela Oshea WPtel: [facility] [place] [phone] [place] (30 min) Complex 02/12/2017 Patient Education: Patient Medication Summary Completed 02/12/2017 Appointment: Marcela Oshea WPtel: [phone] [phone] (30 min) Complex 02/06/2017 Visit Plan: Diabetes [...] glucose readings are starting to become less controlled.Wywyaxzcr-xezzimie-ghyybhjy to monitor Generalized weakness-refer for PT-patient refuses today but will consider 01/2017 Appointment: Marcela Oshea WPtel: [phone] [phone] (30 min) Complex 02/05/2017 Patient Education: Patient Medication Summary Completed 02/05/2017 Appointment: Marcela Oshea WPtel: [phone] (30 min) Complex 01/30/2017 Visit Plan: Acute confusion-uncontrolled diabetes-chronically noncompliant with treatment and stopped his insulin several months ago-r/o stroke vs DKA-Dr Ha in to evaluate patient-plan to admit for further work up and treatment- patient's called and she transported him to the hospital 01/29/2017 Appointment: Marcela Oshea WPtel: [phone] [phone] [place] (30 min) Complex 01/29/2017 Patient Education: Patient Medication Summary Completed 01/29/2017 Patient Education: Obesity Completed 01/29/2017 Visit Plan: Right foot pain-MRI shows foreign body-appt with Dr Grewal for evaluation on Sunday. 10/13/2016 Appointment: Marcela Oshea WPtel: [phone] [place] (15 min) Moderate 10/13/2016 Patient Education: Patient Medication Summary Completed 10/13/2016 Appointment: Marcela Oshea WPtel: [address] [place], [place] [phone] [place] (30 min) Complex 10/12/2016 Visit Plan: Right foot pvra-ylmmvypj-debio washer dropped on foot-xray negative but pain continues to increase-recommend MRI of foot for further evaluation-refer to wound care for lesions on right foot, patient has diabetes and history of osteomyelitis-culture obtained today-continue oral abx-follow up in the office on , sooner if needed 10/09/2016 Visit Plan: Right foot ppau-tghxxlde-rekfx washer dropped on foot-xray negative but pain continues to increase-recommend MRI of foot for further evaluation-refer to wound care for lesions on right foot, patient has diabetes and history of osteomyelitis-culture obtained today-continue oral abx-follow up in the office on , sooner if needed 10/09/2016 Visit Plan: Right foot mfql-pnxgiuly-wjpxh washer dropped on foot-xray negative but pain continues to increase-recommend MRI of foot for further evaluation-refer to wound care for lesions on right foot, patient has diabetes and history of osteomyelitis-culture obtained today-continue oral abx-follow up in the office on , sooner if needed 10/09/2016 Appointment: Marcela Oshea WPtel: [address] [place], [place] [phone] [place] (30 min) Complex 10/09/2016 Patient Education: Patient Medication Summary Completed 10/09/2016 Visit Plan: Cellulitis - continue with oral antibiotics as previously directed , return to clinic as previously directed, call for acute change in symptoms, worsening redness, warmth, discharge. 10/06/2016 Appointment: Marcela Oshea WPtel: [address] [place], [place] [phone] [place] (10 min) Simple 10/06/2016 Patient Education: Patient Medication Summary Completed 10/06/2016 Appointment: Marcela Oshea WPtel: [address] [place], [place] [phone] [place] (30 min) Complex 08/24/2016 Referral: Sun Glynn Referral Completed 07/21/2016 Visit Plan: Low back pain- history of spinal fusion-patient for xray lumbar spine-RX sent to [facility] pharmacy and instructed on use-topical voltaren samples provided and instructed on use. Ok to use tylenol as needed as well. The patient is to call the office if the pain is worsening or does not improve. Pressure ulcer left 4th toe-refer to Dr Glynn for evaluation 07/18/2016 Appointment: Marcela Oshea WPtel: [phone] (30 min) Complex 07/18/2016 Patient Education: Patient Medication Summary Completed 07/18/2016 Patient Education: Obesity Completed 07/18/2016 Care Plan: Referral Order SNOMED-CT : [id number] Pending 07/18/2016 Visit Plan: Diabetes Mellitus - [...] Marcela Oshea WPtel: [phone] (30 min) Complex 06/22/2016 Patient Education: Patient [...] today 05/23/2016 [phone] (30 min) Complex 05/23/2016 Patient Education: [...] of plan. 05/15/2016 [facility]: [phone] (15 min) Moderate 05/15/2016 Patient Education: [...] allow for greater blood glucose control. . Poison Jana - pt is to use topical treatments as directed. Pt is cleanse clothing in hot water with soap, and call if symptoms do not improve or if they worsen. Kenalog injection today in the office-monitor blood sugars closely over the next 2-3 days-use calamine as directed-call if you want anai edge called into [facility]. xray lumbar spine flexeril as needed voltaren gel ulcer left 4th toe-refer to blood tester fowl . Low back pain- history of spinal fusion-patient for xray lumbar spine-RX sent to [facility] pharmacy and instructed on use-topical voltaren [...] for fracture from injury . Right foot ezxj-wlamefuo-rqzwl washer dropped on foot-xray negative but pain [...] for fracture from injury . Right foot heof-eijmsxaf-zfbak washer dropped on foot-xray negative but pain [...] for fracture from injury . Right foot wphy-onujkvkg-uvevj washer dropped on foot-xray negative but pain [...] readings are starting to become less controlled. Vfaqlekzw-minjtqye-xxmkfqdk to monitor Generalized weakness-refer for PT-patient refuses [...]
--- OUTSIDE RECORDS SUMMARY | 2019-03-10 09:26 | XMS REPORT | CCD ---
Author Author Madeline Kennedy MD, [facility] Address [address] [place] [address] Phone Care Team Providers Care Supervisor Shipping Room Name Role Phone PP Unavailable CCM Unavailable Summary Purpose Interface Exchange Insurance Providers Payer name Policy type / Coverage type Covered alliance party ID Effective Begin Date Effective End Date Blue Cross Blue Shield [facility] Blue Cross/Blue Shield [id number] Unknown Family history Father Diagnosis Age At Onset Hyperlipidemia Unknown Heart Attack Unknown Mother Diagnosis Age At Onset Hypertension Unknown Social History Social History Element Codes Description Effective Dates Marital status Unknown Mignon 01/20/2016 Number of children Unknown 4 01/20/2016 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/[address]: 796089088 Never smoker 01/20/[address]: 859912154 Never drinks alcohol 01/20/2016 Allergies, Adverse Reactions, [...] Start Date Stop Date Status Fill Instructions losartan 25 mg tablet RxNorm: 848121 1 Tablet(s) PO daily 201606/28/2017 Active atorvastatin 40 mg tablet RxNorm: 598668 1 Tablet(s) PO daily 03/01/2017 08/27/2017 Active clopidogrel 75 mg tablet RxNorm: 941979 1 Tablet(s) PO daily 08/27/2017 Active Flonase Allergy Relief 50 mcg/actuation nasal spray, suspension RxNorm: 5988038 2 [place] NASAL daily 02/16/20172016 Inactive Augmentin 875 mg-125 mg tablet RxNorm: 514826 1 Tablet(s) PO BID 02/16/2017 02/22/2017 Inactive GET PROBIOTIC TO TAKE WHILE ON ABX Tamiflu 75 mg capsule RxNorm: 419110 1 Capsule(s) PO BID 201602/20/2017 Inactive ceftriaxone 500 mg solution for injection RxNorm: 0040366 1 Milliliter(s) Inj 02/16/2017 02/16/2017 Inactive Kenalog 40 mg/mL suspension for injection RxNorm: 4398872 1 Milliliter(s) Inj 02/16/2017 02/16/2017 Inactive Toujeo SoloStar 300 unit/mL (1.5 mL) subcutaneous insulin pen RxNorm: 1486298 25 Unit(s) SQ QAM 02/12/2017 06/11/2017 Active Toujeo SoloStar 300 unit/mL (1.5 mL) subcutaneous insulin pen RxNorm: 3637158 10 Unit(s) SQ QAM 02/05/2017 02/11/2017 Inactive lisinopril 10 mg tablet RxNorm: 041142 1 Tablet(s) PO daily 02/28/2017 Inactive atorvastatin 40 mg tablet RxNorm: 770450 1 Tablet(s) PO daily 02/01/2017 02/28/2017 Inactive doxycycline hyclate 100 mg capsule RxNorm: 9540416 1 Capsule(s) PO BID 02/01/2017 02/10/2017 Inactive clonazepam 1 mg tablet RxNorm: 131291 1 Tablet(s) PO Q8 as needed 10/09/2016 01/06/2017 Inactive ceftriaxone 1 gram solution for injection RxNorm: 4564512 Inj 10/06/2016 10/06/2016 Inactive cyclobenzaprine 10 mg tablet RxNorm: 898359 1/2-1 Tablet(s) PO TID PRN 07/18/2016 01/28/2017 Inactive clonazepam 1 mg tablet RxNorm: 937497 1 Tablet(s) PO Q8 as needed 05/31/2016 05/29/2016 Inactive clonazepam 1 mg tablet RxNorm: 527195 1 Tablet(s) PO Q8 as needed 05/31/2016 08/28/2016 Inactive Toujeo SoloStar 300 unit/mL (1.5 mL) subcutaneous insulin pen RxNorm: 3296579 10 Unit(s) SQ daily 05/23/2016 01/28/2017 Inactive Crestor 10 mg tablet RxNorm: 850731 1 Tablet(s) PO QHS 201501/28/2017 Inactive Crestor 10 mg tablet RxNorm: 988737 1 Tablet(s) PO QHS 201505/18/2016 Inactive clonazepam 1 mg tablet RxNorm: 081423 1 Tablet(s) PO Q8 as needed 04/25/2016 05/30/2016 Inactive prednisone 20 mg tablet RxNorm: 574553 3 Tablet(s) PO daily 06/201602/10/2016 Inactive prednisone 20 mg tablet RxNorm: 939742 3 Tablet(s) PO daily 06/201605/14/2016 Inactive Kenalog 40 mg/mL suspension for injection RxNorm: 5244619 Milliliter(s) Inj 01/20/2016 01/20/2016 Inactive acetaminophen 500 mg tablet RxNorm: 617338 1-2 Tablet(s) PO as needed No Start Date Active clopidogrel 75 mg tablet RxNorm: 455249 1 Tablet(s) PO daily No Start Date 02/28/2017 Inactive clonazepam 1 mg tablet RxNorm: 173060 1 Tablet(s) PO QHS No Start Date 04/24/2016 Inactive acyclovir 400 mg tablet RxNorm: 489576 2 Tablet(s) PO 5x daily No Start Date 02/28/2017 Inactive Medication Administered Medication Codes Instructions Start Date Status ceftriaxone 500 mg solution for injection RxNorm: 5903729 1Milliliter 02/16/2017 No longer Active Kenalog 40 mg/mL suspension for injection RxNorm: 1654047 1Milliliter 02/16/2017 No longer Active ceftriaxone 1 gram solution for injection RxNorm: 7275564 10/06/2016 No longer Active Kenalog 40 mg/mL suspension for injection RxNorm: 4673522 Milliliter 01/20/2016 No longer Active Immunizations No [...] Code Item Item Code Result Date %Hba1C Rny092 % HbA1c 87563-0 9.5 % 05/04/2017 %Hba1C Ibt288 Gluc Ave 226 mg/dL 05/04/2017 Tsh Ord6 [...] 31.7 pg 05/04/2017 Cbc With Differential Ord2 [place]% 8.5 % 05/04/2017 Cbc With Differential Ord2 [...] 2.48 K/ul 05/04/2017 Cbc With Differential Ord2 [place] ABS# 0.5 K/ul 05/04/2017 Cbc With Differential Ord2 Eos ABS# 0.1 K/ul 05/04/2017 Cbc With Differential Ord2 Baso ABS# 0.0 K/ul 05/04/2017 Comp Metabolic Gei408 NA 135 mEq/L 05/04/2017 Comp Metabolic Xmi903 K 4.2 mEq/L 05/04/2017 Comp Metabolic Xpk974 CL 99 mEq/L 05/04/2017 Comp Metabolic Dog605 CO2 26.0 mEq/L 05/04/2017 Comp Metabolic Mpl674 ANION GAP 14 05/04/2017 Comp Metabolic Hnv304 GLUCOSE 277 mg/dL 05/04/2017 Comp Metabolic Jfj619 Creat 0.9 mg/dL 05/04/2017 Comp Metabolic Hxq285 eGFR 96 ml/min/1.73m2 05/04/2017 Comp Metabolic Pbs593 BUN 23 mg/dL 05/04/2017 Comp Metabolic Ydc437 B/C Ratio 26.1 Ratio 05/04/2017 Comp Metabolic Vkr050 CALCIUM 8.9 mg/dL 05/04/2017 Comp Metabolic Fve548 ALK PHOS 81 U/L 05/04/2017 Comp Metabolic Ifm900 AST(SGOT) 21 U/L 05/04/2017 Comp Metabolic Hov105 ALT(SGPT) 27 U/L 05/04/2017 Comp Metabolic Tfk622 BILI T 1.2 mg/dL 05/04/2017 Comp Metabolic Dlw755 ALBUMIN 4.0 g/dL 05/04/2017 Comp Metabolic Cbi624 TPRO 6.7 g/dL 05/04/2017 Comp Metabolic Dcv231 GLOB 2.7 g/dL 05/04/2017 Comp Metabolic Fzi190 A/G Ratio 1.5 Ratio 05/04/2017 Comp Metabolic Vop190 Osmo 284 mOsmo 05/04/2017 C A/B FLU 8066203 Influenza A Scr Negative 02/16/2017 C A/B FLU 6173103 Influenza B Scr Positive 02/16/2017 Cbc With [...] 39.7 % 05/23/2016 Cbc With Differential Ord2 [place]% 8.8 % 05/23/2016 Cbc With Differential Ord2 [...] 2.07 K/ul 05/23/2016 Cbc With Differential Ord2 [place] ABS# 0.5 K/ul 05/23/2016 Cbc With Differential Ord2 Eos ABS# 0.1 K/ul 05/23/2016 Cbc With Differential Ord2 Baso ABS# 0.0 K/ul 05/23/2016 Lipid Ord30 CHOL 397 mg/dL 05/17/2016 Lipid Ord30 HDL 48.0 mg/dl 05/17/2016 Lipid Ord30 TRIG 578 mg/dL 05/17/2016 Lipid Ord30 LDL Unable to calculate Due to elevated triglycerides mg/dL 05/17/2016 Lipid Ord30 C/HDL 8.3 Ratio 05/17/2016 %Hba1C Tct006 % HbA1c 85910-7 12.4 % 05/16/2016 %Hba1C Tdg282 Gluc Ave 309 mg/dL 05/16/2016 Cbc With [...] 30.4 pg 05/15/2016 Cbc With Differential Ord2 [place]% 7.8 % 05/15/2016 Cbc With Differential Ord2 [...] 2.04 K/ul 05/15/2016 Cbc With Differential Ord2 [place] ABS# 0.5 K/ul 05/15/2016 Cbc With Differential Ord2 Eos ABS# 0.1 K/ul 05/15/2016 Cbc With Differential Ord2 Baso ABS# 0.0 K/ul 05/15/2016 Tsh Ord6 hTSH II 1.70 uIU/mL 05/15/2016 Comp Metabolic Npp669 NA 135 mEq/L 05/15/2016 Comp Metabolic Qfp340 K 3.9 mEq/L 05/15/2016 Comp Metabolic Nmj824 CL 96 mEq/L 05/15/2016 Comp Metabolic Ujq100 CO2 27.0 mEq/L 05/15/2016 Comp Metabolic Qia722 ANION GAP 16 05/15/2016 Comp Metabolic Kti441 GLUCOSE 183 mg/dL 05/15/2016 Comp Metabolic Ukl901 Creat 1.1 mg/dL 05/15/2016 Comp Metabolic Ttb068 eGFR 71 ml/min/1.73m2 05/15/2016 Comp Metabolic Hnv488 BUN 17 mg/dL 05/15/2016 Comp Metabolic Llx690 B/C Ratio 14.9 Ratio 05/15/2016 Comp Metabolic Jrv641 CALCIUM 9.6 mg/dL 05/15/2016 Comp Metabolic Upd654 ALK PHOS 100 U/L 05/15/2016 Comp Metabolic Bgc638 AST(SGOT) 20 U/L 05/15/2016 Comp Metabolic Gwz304 ALT(SGPT) 20 U/L 05/15/2016 Comp Metabolic Zdi029 BILI T 1.3 mg/dL 05/15/2016 Comp Metabolic Vqp129 ALBUMIN 4.6 g/dL 05/15/2016 Comp Metabolic Way058 TPRO 8.1 g/dL 05/15/2016 Comp Metabolic Nxq923 GLOB 3.5 g/dL 05/15/2016 Comp Metabolic Dgv389 A/G Ratio 1.3 Ratio 05/15/2016 Comp Metabolic Mlq265 Osmo 276 mOsmo 05/15/2016 Review of Systems [...] of skin Location: face 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/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 Full Exam - General 1994 Constitutional general [...] Codes Date TRIAMCINOLONE ACET INJ NOS CPT-4: G2087Rdgktge THER/PROPH/DIAG INJ SC/IM CPT-4: 05875Guxbabt TRIAMCINOLONE ACET INJ NOS CPT-4: B2096Wutmaoz ROCEPHIN, PER 250 MG CPT-4: M5972Zdyncyi ROCEPHIN, PER 250 MG CPT-4: H5519Atmcohp 12/2015 URINALYSIS NONAUTO W/O SCOPE CPT-4: 57801Azsayzx TRIAMCINOLONE ACET INJ NOS CPT-4: C9158Fwburep Vital Signs Date Vital 05/04/2017 Blood Pressure [...] Code : 8480-6 BMI: 31.8 Code : 01462-2 Heart Rate 1 : 85 bpm Height: 6'2" SpO2: 96% Temperature: 36.6 (C) / 97.9 (F) Weight: 248 lbs 02/12/2017 Blood Pressure 1: 126/76 Code : 8480-6 BMI: 31.8 Code : 81875-9 Heart Rate 1 : 106 bpm Height: 6'2" SpO2: 91% Weight: 248 lbs 02/05/2017 Blood Pressure 1: 146/86 Code : 8480-6 BMI: 31.9 Code : 52215-7 Heart Rate 1 : 98 bpm Height: 6'2" SpO2: 87% Temperature: 36.7 (C) / 98.0 (F) Weight: 248 lbs 8 oz 01/29/2017 Blood Pressure 1: 132/84 Code : 8480-6 BMI: 31.8 Code : 15453-9 Heart Rate 1 : 83 bpm Height: 6'2" SpO2: 97% Weight: 248 lbs 10/13/2016 Blood Pressure 1: 128/72 Code : 8480-6 Heart Rate 1: 86 bpm SpO2: 94% 10/09/2016 Blood Pressure 1: 128/68 Code : 8480-6 Heart Rate 1: 136 bpm SpO2: 94% Temperature: 36.8 (C) / 98.2 (F) 10/06/2016 Blood Pressure 1: 140/80 Code : 8480-6 BMI: 32.1 Code : 20522-6 Heart Rate 1 : 94 bpm Height: 6'2" SpO2: 95% Weight: 250 lbs 07/18/2016 Blood Pressure 1: 128/86 Code : 8480-6 BMI: 32.1 Code : 70233-0 Heart Rate 1 : 89 bpm Height: 6'2" SpO2: 96% Weight: 250 lbs 06/22/2016 Blood Pressure 1: 118/70 Code : 8480-6 BMI: 32.1 Code : 52764-1 Heart Rate 1 : 70 bpm Height: 6'2" SpO2: 97% Weight: 250 lbs 05/23/2016 Blood Pressure 1: 128/80 Code : 8480-6 BMI: 32.1 Code : 07020-1 Heart Rate 1 : 76 bpm Height: 6'2" SpO2: 98% Weight: 250 lbs 05/15/2016 Blood Pressure 1: 110/90 Code : 8480-6 BMI: 31.3 Code : 28904-0 Heart Rate 1 : 111 bpm Height: 6'2" SpO2: 97% Temperature: 36.6 (C) / 97.8 (F) Weight: 244 lbs 01/20/2016 Blood Pressure 1: 128/76 Code : 8480-6 BMI: 33.0 Code : 50432-3 Heart Rate 1 : 103 bpm Height: [...] data Encounters Encounter Performer Location Codes Date ([id number]) 72844 EST. PATIENT, LEVEL III Diagnosis: Allergic contact dermatitis due to plants, except food[ICD10: L23.7] [facility] CPT-4: 80877 05/04/2017 ([id number]) 15901 EST. PATIENT, LEVEL III Diagnosis: Essential (primary) hypertension[ICD10: I10] [facility] CPT-4: 83939 03/15/2017 [id number]) 60086 EST. PATIENT, LEVEL III Diagnosis: Cough[ICD10: R05] Diagnosis: Essential (primary) hypertension[ICD10: I10] Marcela Ha MD [facility] CPT-4: 10969 03/01/2017 ([id number]) 66586 EST. PATIENT, LEVEL III Diagnosis: Cough[ICD10: R05] Diagnosis: Nasal congestion[ICD10: R09.81] Diagnosis: Acute recurrent maxillary sinusitis[ICD10: J01.01] Marcela Ha MD [facility] CPT-4: 30995 02/16/2017 ([id number]) 84230 EST. PATIENT, LEVEL III Diagnosis: Type 2 diabetes mellitus with hyperglycemia[ICD10: E11.65] Marcela Ha MD [facility] CPT-4: 71613 02/12/2017 ([id number]) 97583 EST. PATIENT, LEVEL IV Diagnosis: Type 2 diabetes mellitus with hyperglycemia[ICD10: E11.65] Diagnosis: Muscle weakness (generalized)[ICD10: M62.81] Diagnosis: Disorientation, unspecified[ICD10: R41.0] Marcela Ha MD [facility] CPT-4: 87841 02/05/2017 ([id number]) Patient admitted to the hospital from clinic (NO CHARGE) Diagnosis: Type 2 diabetes mellitus with hyperglycemia[ICD10: E11.65] Diagnosis: Disorientation, unspecified[ICD10: R41.0] Diagnosis: Muscle weakness (generalized)[ICD10: M62.81] Marcela Ha MD [facility] CPT-4: 31579K 01/29/2017 ([id number]) Miscellaneous no charge Diagnosis: Cellulitis of right lower limb[ICD10: L03.115] Marcela Ha MD [facility] CPT-4: 59333 10/13/2016 ([id number]) Miscellaneous no charge Diagnosis: Type 2 diabetes mellitus with foot ulcer[ICD10: E11.621] Diagnosis: Pain in right foot[ICD10: M79.671] Marcela Ha MD [facility] CPT-4: 00078 10/09/2016 23853 EST. PATIENT, LEVEL II Diagnosis: Cellulitis of right lower limb[ICD10: L03.115] Marcela Ha MD [facility] CPT-4: 53125 10/06/2016 ([id number]) 16998 EST. PATIENT, LEVEL IV Diagnosis: Low back pain[ICD10: M54.5] Diagnosis: Other deformities of toe(s) (acquired), left foot[ICD10: M20.5X2] Diagnosis: Type 2 diabetes mellitus with foot ulcer[ICD10: E11.621] Marcela Ha MD , [facility] CPT-4: 25443 07/18/2016 ([id number]) 89480 EST. PATIENT, LEVEL III Diagnosis: Type 2 diabetes mellitus with hyperglycemia[ICD10: E11.65] Marcela Ha MD, [facility] CPT-4: 81919 06/22/2016 ([id number]) 08221 EST. 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 PATIENT, LEVEL IV Diagnosis: Type 2 diabetes mellitus with other specified complication[ICD10: E11.69] Diagnosis: Dehydration[ICD10: E86.0] Marcela Ha MD, [facility] CPT-4: 28953 05/15/2016 ([id number]) OFFICE VISIT, NEW - LEVEL 3 Diagnosis: Allergic contact dermatitis due to plants, except food[ICD10: L23.7] Madeline Ha MD, [facility] CPT-4: 32743 01/20/2016 Plan of Care Planned Activity Notes [...] if you want anai edge called into [facility]. 05/04/2017 Appointment: Marcela Oshea WPtel: [address] [place], [place] [phone] (30 min) Complex 05/04/2017 Patient Education: Patient Medication Summary Completed 05/04/2017 Visit Plan: Hypertension - well controlled - continue with current medications , continue with no added salt diet. Pt has been encouraged to exercise daily.The pt has been advised to call the office if there are any acute concerns about change in blood pressure readings at home.Cough-resolved 2016 Appointment: Marcela Oshea WPtel: [phone] [phone] (15 min) Moderate 03/15/2017 Patient Education: Patient Medication Summary Completed 03/15/2017 Appointment: Marcela Oshea WPtel: [phone] [phone] (30 min) Complex 03/12/2017 Visit Plan: Feng [...] Oshea WPtel: [phone] (15 min) Moderate 02/16/2017 Patient Education: Patient [...] less controlled. 02/12/2017 Appointment: Marcela Oshea WPtel: [phone] [phone] (30 min) Complex 02/12/2017 Patient Education: Patient Medication Summary Completed 02/12/2017 Appointment: Marcela Oshea WPtel: [facility]6 [phone] (30 min) Complex 02/06/2017 Visit Plan: Diabetes [...] glucose readings are starting to become less controlled.Kqbokujeu-hysfwjqo-ptxyqnpi to monitor Generalized weakness-refer for PT-patient refuses today but will consider 01/2017 Appointment: Marcela Oshea WPtel: [phone] (30 min) Complex 02/05/2017 Patient Education: Patient Medication Summary Completed 02/05/2017 Appointment: Marcela Oshea WPtel: [phone] (30 min) Complex 01/30/2017 Visit Plan: Acute confusion-uncontrolled diabetes-chronically noncompliant with treatment and stopped his insulin several months ago-r/o stroke vs DKA-Dr Ha in to evaluate patient-plan to admit for further work up and treatment- patient's called and she transported him to the hospital 01/29/2017 Appointment: Marcela Oshea WPtel: [phone] (30 min) Complex 01/29/2017 Patient Education: Patient Medication Summary Completed 01/29/2017 Patient Education: Obesity Completed 01/29/2017 Visit Plan: Right foot pain-MRI shows foreign body-appt with Dr Grewal for evaluation on Sunday. 10/13/2016 Appointment: Marcela Oshea WPtel: [phone] (15 min) Moderate 10/13/2016 Patient Education: Patient Medication Summary Completed 10/13/2016 Appointment: Marcela Oshea WPtel: [phone] [place] (30 min) Complex 10/12/2016 Visit Plan: Right foot viga-obnypngz-uzula washer dropped on foot-xray negative but pain continues to increase-recommend MRI of foot for further evaluation-refer to wound care for lesions on right foot, patient has diabetes and history of osteomyelitis-culture obtained today-continue oral abx-follow up in the office on , sooner if needed 10/09/2016 Visit Plan: Right foot ojll-gpthxond-btktc washer dropped on foot-xray negative but pain continues to increase-recommend MRI of foot for further evaluation-refer to wound care for lesions on right foot, patient has diabetes and history of osteomyelitis-culture obtained today-continue oral abx-follow up in the office on , sooner if needed 10/09/2016 Visit Plan: Right foot ajgf-qgwuowgj-ydday washer dropped on foot-xray negative but pain continues to increase-recommend MRI of foot for further evaluation-refer to wound care for lesions on right foot, patient has diabetes and history of osteomyelitis-culture obtained today-continue oral abx-follow up in the office on , sooner if needed 10/09/2016 Appointment: Marcela Oshea WPtel: [phone] [place] (30 min) Complex 10/09/2016 Patient Education: Patient Medication Summary Completed 10/09/2016 Visit Plan: Cellulitis - continue with oral antibiotics as previously directed , return to clinic as previously directed, call for acute change in symptoms, worsening redness, warmth, discharge. 10/06/2016 Appointment: Marcela Oshea WPtel: [address] [place], [place] [phone] [place] (10 min) Simple 10/06/2016 Patient Education: Patient Medication Summary Completed 10/06/2016 Appointment: Marcela Oshea WPtel: [facility]5 [phone] (30 min) Complex 08/24/2016 Referral: Sun Glynn Referral Completed 07/21/2016 Visit Plan: Low back pain- history of spinal fusion-patient for xray lumbar spine-RX sent to [facility] and instructed on use-topical voltaren samples provided and instructed on use. Ok to use tylenol as needed as well. The patient is to call the office if the pain is worsening or does not improve. Pressure ulcer left 4th toe-refer to Dr Glynn for evaluation 07/18/2016 Appointment: Marcela Oshea WPtel: [facility]5 [facility] [place] [address] (30 min) Complex 07/18/2016 Patient Education: Patient Medication Summary Completed 07/18/2016 Patient Education: Obesity Completed 07/18/2016 Care Plan: Referral Order SNOMED-CT : 889110105 Pending 07/18/2016 Visit Plan: Diabetes Mellitus - [...] glucose control. 06/22/2016 Appointment: Marcela Oshea WPtel: [facility]8 [phone] (30 min) Complex 06/22/2016 Patient Education: Patient [...] today 05/23/2016 Appointment: Marcela Oshea WPtel: [phone] [phone] (30 min) Complex 05/23/2016 Patient Education: [...] plan. 05/15/2016 Appointment: Marcela Oshea WPtel: [phone] [phone] (15 min) Moderate 05/15/2016 Patient Education: Patient [...] if you want anai edge called into [facility]. xray lumbar spine flexeril as needed voltaren gel ulcer left 4th toe-refer to ada accommodation consultant . Low back pain- history of spinal fusion-patient for xray lumbar spine-RX sent to [facility] and instructed on use-topical voltaren samples [...] for fracture from injury . Right foot zpti-qlvfudtv-ohjoz washer dropped on foot-xray negative but pain [...] for fracture from injury . Right foot snsu-zutanbmf-ttxta washer dropped on foot-xray negative but pain [...] for fracture from injury . Right foot nttw-ukmeypfv-jfqhz washer dropped on foot-xray negative but pain [...] readings are starting to become less controlled. Pixuymsad-euypgdri-xbhuzxol to monitor Generalized weakness-refer for PT-patient refuses [...]
--- OUTSIDE RECORDS SUMMARY | 2019-03-10 09:31 | XMS REPORT | CCD ---
Author Author Madeline Kennedy MD, [facility] Address [address] [place] [address] Phone Care Team Providers Care Press Box Custodian Name Role Phone PP Unavailable CCM Unavailable Summary Purpose Interface Exchange Insurance Providers Payer name Policy type / Coverage type Covered republican ID Effective Begin Date Effective End Date [place] Commercial Insurance [id number] Unknown Family history Father Diagnosis Age At Onset Hyperlipidemia Unknown Heart Attack Unknown Mother Diagnosis Age At Onset Hypertension Unknown Social History Social History Element Codes Description Effective Dates Marital status Unknown Mignon 01/20/2016 Number of children Unknown 4 01/20/2016 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/[address]: 105605888 Never smoker 01/20/[address]: 604615544 Never drinks alcohol 01/20/2016 Allergies, Adverse Reactions, Alerts Substance Reaction Codes Entered Date Inactivated Date Status * NO KNOWN DRUG ALLERGIES Unknown 05/23/2016 No Inactive Date Active Past Medical History Illness Codes Condition Status Onset Date Resolved Date Essential (primary) hypertension ICD-9: 401.1 ICD-10: I10 Active 03/01/2017 Unknown 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 ICD-10: I95.2 Active 02/17/2019 Unknown Other fatigue ICD-9: 780.79 ICD-10: R53.83 Active 08/27/2017 Unknown 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 ICD-10: I25.10 Active 01/13/2019 Unknown Epigastric pain ICD-9 : 789.06 ICD-10: R10.13 [...] ICD-9: 727.03 ICD-10: M65.331 Active 10/24/2018 Unknown Type 2 diabetes mellitus with foot [...] ICD-9: 458.0 ICD-10: I95.1 Active 02/28/2018 Unknown Gastro-esophageal reflux disease without esophagitis ICD-9: [...] hypertension ICD-9: 401.1 ICD-10: I10 03/01/2017 Active 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 ICD-10: I95.2 02/17/2019 Active Other fatigue ICD-9: 780.79 ICD-10: R53.83 08/27/2017 Active 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 ICD-10: I25.10 01/13/2019 Active Epigastric pain ICD-9 : 789.06 ICD-10: R10.13 [...] finger ICD-9: 727.03 ICD-10: M65.331 10/24/2018 Active Type 2 diabetes mellitus with foot [...] hypotension ICD-9: 458.0 ICD-10: I95.1 02/28/2018 Active Gastro-esophageal reflux disease without esophagitis ICD-9: [...] Date Stop Date Status Fill Instructions valsartan 40 mg tablet RxNorm: 924560 1/2 Tablet(s) PO daily 09/02/2019 Active metoprolol succinate ER 25 mg tablet,extended release 24 hr RxNorm: 472588 1 Tablet(s) PO QPM 03/07/2019 09/02/2019 Active Cymbalta 30 mg capsule,delayed release RxNorm: 996281 1 Capsule(s) PO daily 02/27/2019 No Stop Date Active Lyrica 50 mg capsule RxNorm: 909301 Capsule(s) PO daily 201806/25/2019 Active Cymbalta 60 mg capsule,delayed release RxNorm: 751358 1 Capsule(s) PO QAM 02/19/2019 02/26/2019 Inactive will call for refill- dose change Coreg 6.25 mg tablet RxNorm: 328274 1 Tablet(s) daily 201802/26/2019 Inactive clonazepam 1 mg tablet RxNorm: 666995 2 Tablet(s) PO HS 201806/14/2019 Active Tresiba FlexTouch U-200 insulin 200 unit/mL (3 mL) subcutaneous pen RxNorm: 1462124 50 Unit(s) SQ daily 01/08/2019 05/07/2019 Active please give him 30 day supply Protonix 40 mg tablet,delayed release RxNorm: 582114 1 Tablet(s) PO daily 12/31/2018 01/29/2019 Inactive Tresiba FlexTouch U-200 insulin 200 unit/mL (3 mL) subcutaneous pen RxNorm: 2432382 50 Unit(s) SQ daily 12/31/2018 01/07/2019 Inactive please give him 30 day supply Augmentin 500 mg-125 mg tablet RxNorm: 224391 1 Tablet(s) PO TID 12/26/2018 01/04/2019 Inactive Augmentin 500 mg-125 mg tablet RxNorm: 596361 1 Tablet(s) PO TID 12/26/2018 12/25/2018 Inactive ProAir HFA 90 mcg/actuation aerosol inhaler RxNorm: 8052175 2 Puff(s) INH QID as needed 11/18/2018 No Stop Date Active Lyrica 50 mg capsule RxNorm: 251518 Capsule(s) PO daily 201802/07/2019 Inactive Cymbalta 30 mg capsule,delayed release RxNorm: 337808 1 Capsule(s) PO QAM 11/13/2018 02/18/2019 Inactive Lyrica 50 mg capsule RxNorm: 044094 Capsule(s) PO daily 201811/12/2018 Inactive Symbicort 160 mcg-4.5 mcg/actuation HFA aerosol inhaler RxNorm: 2885705 2 Puff(s) INH BID 11/12/2018 12/11/2018 Inactive albuterol sulfate 2.5 mg/3 mL (0.083 %) solution for nebulization RxNorm: 394865 3 Milliliter(s) INH UD 11/07/2018 No Stop Date Active azithromycin 500 mg tablet RxNorm: 720805 500mg on day 1 then 250 mg daily x 4 more day Tablet(s) PO 11/07/20182018 Inactive 500mg on day 1 and then 250mg daily 2-4 cefdinir 300 mg capsule RxNorm: 593741 1 Capsule(s) PO BID 01/201911/06/2018 Inactive azithromycin 500 mg tablet RxNorm: 036059 500mg on day 1 then 250 mg daily x 4 more day Tablet(s) PO 11/07/20182018 Inactive 500mg on day 1 and then 250mg daily 2-4 cefdinir 300 mg capsule RxNorm: 109977 1 Capsule(s) PO BID 01/201911/13/2018 Inactive Levaquin 500 mg tablet RxNorm: 768858 1 Tablet(s) PO daily TAKE ONE TABLET BY MOUTH DAILY UNTIL GONE 10/31/20182018 Inactive Levaquin 500 mg tablet RxNorm: 733420 1 Tablet(s) PO daily 11/12/2018 Inactive valsartan 80 mg tablet RxNorm: 025462 1/2 Tablet(s) PO daily 03/06/2019 Inactive doxycycline hyclate 100 mg tablet RxNorm: 1151031 1 Tablet(s) PO BID 10/21/2018 10/27/2018 Inactive ketorolac 60 mg/2 mL intramuscular solution RxNorm: 8546170 Milliliter(s) IM 10/21/2018 10/21/2018 Inactive Levaquin 500 mg tablet RxNorm: 206408 1 Tablet(s) PO daily 10/31/2018 Inactive Tessalon Perles 100 mg capsule RxNorm: 731022 1-2 Capsule(s) PO TID PRN 10/14/2018 No Stop Date Active albuterol sulfate 2.5 mg/3 mL (0.083 %) solution for nebulization RxNorm: 770371 3 Milliliter(s) INH UD 10/14/201812/2018 Inactive Levaquin 500 mg tablet RxNorm: 714213 1 Tablet(s) PO daily 08/201810/16/2018 Inactive albuterol sulfate 2.5 mg/3 mL (0.083 %) solution for nebulization RxNorm: 820312 3 Milliliter(s) INH UD 09/30/201807/2018 Inactive Kenalog 40 mg/mL suspension for injection RxNorm: 6807172 1.5 Milliliter(s) Inj 09/30/2018 09/30/2018 Inactive Coreg 6.25 mg tablet RxNorm: 479111 TAKE ONE TABLET BY MOUTH TWICE A DAY 09/30/2018 02/18/2019 Inactive Keflex 500 mg capsule RxNorm: 606513 1 Capsule(s) PO TID 201710/03/2018 Inactive prednisone 20 mg tablet RxNorm: 787459 2 Tablet(s) PO daily 09/29/2018 Inactive Kenalog 40 mg/mL suspension for injection RxNorm: 5802409 Milliliter(s) Inj 09/11/2018 09/11/2018 Inactive Zyrtec 10 mg tablet RxNorm: 2627773 1 Tablet(s) PO daily 09/0910/08/2018 Inactive Keflex 500 mg capsule RxNorm: 156912 1 Capsule(s) PO TID 201709/15/2018 Inactive Tresiba FlexTouch U-200 insulin 200 unit/mL (3 mL) subcutaneous pen RxNorm: 5896538 50 Unit(s) SQ daily 08/30/2018 08/29/2018 Inactive please give him 30 day supply Tresiba FlexTouch U-200 insulin 200 unit/mL (3 mL) subcutaneous pen RxNorm: 4464930 50 Unit(s) SQ daily 08/30/2018 09/28/2018 Inactive please give him 30 day supply Novolog Flexpen U-100 Insulin aspart 100 unit/mL subcutaneous RxNorm: 9293568 8 Unit(s) SQ AC 08/13/2018 No Stop Date Active Novolog Flexpen U-100 Insulin aspart 100 unit/mL subcutaneous RxNorm: 7973834 8 Unit(s) SQ AC 07/22/20182017 Inactive this is an update on his medication Novolog Flexpen U-100 Insulin aspart 100 unit/mL subcutaneous RxNorm: 3341736 12 Unit(s) SQ AC 07/05/20182017 Inactive this is an update on his medication Toujeo SoloStar U-300 Insulin 300 unit/mL (1.5 mL) subcutaneous pen RxNorm: 5959782 INJECT 50 UNITS UNDER THE SKIN DAILY 07/01/2018 08/29/2018 Inactive Mucinex 600 mg tablet, extended release RxNorm: 549130 1 Tablet(s) PO BID 06/28/2018 07/04/2018 Inactive Zofran 4 mg tablet RxNorm: 779428 1 Tablet(s) PO TID as needed nausea 06/28/2018 07/02/2018 Inactive Kenalog 40 mg/mL suspension for injection RxNorm: 2294210 Milliliter(s) Inj 06/28/2018 06/28/2018 Inactive Flonase Allergy Relief 50 mcg/actuation nasal spray, suspension RxNorm: 1600934 1 [place] NASAL BID 06/28/20182017 Inactive Lyrica 50 mg capsule RxNorm: 168966 Capsule(s) PO daily 201707/06/2018 Inactive Novolog Flexpen U-100 Insulin aspart 100 unit/mL subcutaneous RxNorm: 8865919 10 Unit(s) SQ AC 06/18/20182017 Inactive this is an update on his medication Lasix 20 mg tablet RxNorm: 814511 1 Tablet(s) PO BIW 201707/02/2018 Inactive atorvastatin 80 mg tablet RxNorm: 945378 1 Tablet(s) PO QHS 04/201812/06/2018 Inactive clonazepam 1 mg tablet RxNorm: 373019 2 Tablet(s) PO HS as needed 06/10/2018 06/08/2018 Inactive clonazepam 1 mg tablet RxNorm: 569098 2 Tablet(s) PO HS 201702/17/2019 Inactive Lyrica 50 mg capsule RxNorm: 793123 Capsule(s) PO daily 201707/08/2018 Inactive Lasix 20 mg tablet RxNorm: 1 Tablet(s) PO TIW 201706/11/2018 Inactive Toujeo SoloStar U-300 Insulin 300 unit/mL (1.5 mL) subcutaneous pen RxNorm: 4226099 50 Unit(s) SQ daily 05/07/2018 06/30/2018 Inactive meloxicam 15 mg tablet RxNorm: 137521 15 Milligram(s) PO daily 05/02/2018 05/12/2018 Inactive ketorolac 30 mg/mL injection solution RxNorm: 526771 2 Milliliter(s) Inj 05/02/2018 05/02/2018 Inactive Toujeo SoloStar U-300 Insulin 300 unit/mL (1.5 mL) subcutaneous pen RxNorm: 4177663 45 Unit(s) daily 04/29/2018 Inactive clonazepam 1 mg tablet RxNorm: 521966 1 Tablet(s) PO Q8 as needed 04/29/2018 06/09/2018 Inactive doxycycline hyclate 100 mg tablet RxNorm: 3939260 1 Tablet(s) PO BID 04/29/2018 05/12/2018 Inactive Cymbalta 30 mg capsule,delayed release RxNorm: 142187 1 Capsule(s) PO QAM 03/13/2018 10/08/2018 Inactive Lexapro 10 mg tablet RxNorm: 449620 1 Tablet(s) PO QPM 201703/03/2018 Inactive Toujeo SoloStar U-300 Insulin 300 unit/mL (1.5 mL) subcutaneous pen RxNorm: 0653853 20 Unit(s) daily 02/28/2018 Inactive Protonix 40 mg tablet,delayed release RxNorm: 279698 1 Tablet(s) PO daily 01/29/2018 06/09/2018 Inactive clonazepam 1 mg tablet RxNorm: 827930 1 Tablet(s) PO Q8 as needed 12/12/2017 03/10/2018 Inactive Tamiflu 75 mg capsule RxNorm: 515931 1 Capsule(s) PO BID 201712/03/2017 Inactive doxycycline hyclate 100 mg capsule RxNorm: 9604601 1 Capsule(s) PO BID 09/07/2017 09/20/2017 Inactive doxycycline hyclate 100 mg capsule RxNorm: 4856897 1 Capsule(s) PO BID 08/27/2017 09/06/2017 Inactive prednisone 20 mg tablet RxNorm: 471999 2 Tablet(s) PO daily 08/31/2017 Inactive clopidogrel 75 mg tablet RxNorm: 633201 1 Tablet(s) PO daily 06/09/2018 Inactive atorvastatin 40 mg tablet RxNorm: 540951 1 Tablet(s) PO QHS 02/27/2018 Inactive losartan 25 mg tablet RxNorm: 344698 TAKE ONE TABLET BY MOUTH DAILY 08/22/2017 06/09/2018 Inactive Toujeo SoloStar 300 unit/mL (1.5 mL) subcutaneous insulin pen RxNorm: 8351754 45 Unit(s) daily 08/17/2017 08/20/2017 Inactive mupirocin 2 % topical ointment RxNorm: 224415 1 Application TOP TID to the lesions on chest 08/16/2017 08/25/2017 Inactive Toujeo SoloStar 300 unit/mL (1.5 mL) subcutaneous insulin pen RxNorm: 7078364 40 Unit(s) daily 08/16/2017 08/16/2017 Inactive valacyclovir 1 gram tablet RxNorm: 794765 1 Tablet(s) PO TID 08/01/2017 Inactive clonazepam 1 mg tablet RxNorm: 586469 1 Tablet(s) PO Q8 as needed 07/03/2017 09/30/2017 Inactive Levaquin 500 mg tablet RxNorm: 692936 1 Tablet(s) PO daily 06/25/2017 Inactive Levaquin 500 mg tablet RxNorm: 125235 1 Tablet(s) PO daily 06/21/2017 Inactive losartan 25 mg tablet RxNorm: 726532 1 Tablet(s) PO daily 201608/16/2017 Inactive nystatin 100,000 unit/mL oral suspension RxNorm: 192536 5 Milliliter(s) PO QID Swish et swallow 06/18/2017 06/17/2017 Inactive nystatin 100,000 unit/mL oral suspension RxNorm: 709962 5 Milliliter(s) PO QID Swish et swallow 06/18/2017 06/27/2017 Inactive Cipro 500 mg tablet RxNorm: 040820 1 Tablet(s) PO BID 201606/18/2017 Inactive Cipro 500 mg tablet RxNorm: 711272 1 Tablet(s) PO BID 201606/11/2017 Inactive Toujeo SoloStar 300 unit/mL (1.5 mL) subcutaneous insulin pen RxNorm: 6014160 INJECT 10 UNITS UNDER THE SKIN DAILY 06/12/2017 08/15/2017 Inactive Keflex 500 mg capsule RxNorm: 534188 1 Capsule(s) PO TID 201606/13/2017 Inactive doxycycline hyclate 100 mg capsule RxNorm: 1540688 1 Capsule(s) PO BID 05/17/2017 05/21/2017 Inactive doxycycline hyclate 100 mg capsule RxNorm: 5431262 1 Capsule(s) PO BID 05/11/2017 05/16/2017 Inactive losartan 25 mg tablet RxNorm: 851869 1 Tablet(s) PO daily 201606/17/2017 Inactive atorvastatin 40 mg tablet RxNorm: 562636 1 Tablet(s) PO daily 03/01/2017 08/23/2017 Inactive clopidogrel 75 mg tablet RxNorm: 975134 1 Tablet(s) PO daily 08/23/2017 Inactive Flonase Allergy Relief 50 mcg/actuation nasal spray, suspension RxNorm: 2288595 2 [place] NASAL daily 02/16/20172016 Inactive Augmentin 875 mg-125 mg tablet RxNorm: 747449 1 Tablet(s) PO BID 02/16/2017 02/22/2017 Inactive GET PROBIOTIC TO TAKE WHILE ON ABX Tamiflu 75 mg capsule RxNorm: 737140 1 Capsule(s) PO BID 201602/20/2017 Inactive ceftriaxone 500 mg solution for injection RxNorm: 8977246 1 Milliliter(s) Inj 02/16/2017 02/16/2017 Inactive Kenalog 40 mg/mL suspension for injection RxNorm: 0023700 1 Milliliter(s) Inj 02/16/2017 02/16/2017 Inactive Toujeo SoloStar 300 unit/mL (1.5 mL) subcutaneous insulin pen RxNorm: 4301994 25 Unit(s) SQ QAM 02/12/2017 06/10/2017 Inactive Toujeo SoloStar 300 unit/mL (1.5 mL) subcutaneous insulin pen RxNorm: 3290779 10 Unit(s) SQ QAM 02/05/2017 02/11/2017 Inactive lisinopril 10 mg tablet RxNorm: 453798 1 Tablet(s) PO daily 02/28/2017 Inactive atorvastatin 40 mg tablet RxNorm: 633397 1 Tablet(s) PO daily 02/01/2017 02/28/2017 Inactive doxycycline hyclate 100 mg capsule RxNorm: 6395286 1 Capsule(s) PO BID 02/01/2017 02/10/2017 Inactive clonazepam 1 mg tablet RxNorm: 720049 1 Tablet(s) PO Q8 as needed 10/09/2016 01/05/2017 Inactive ceftriaxone 1 gram solution for injection RxNorm: 0993024 Inj 10/06/2016 10/06/2016 Inactive cyclobenzaprine 10 mg tablet RxNorm: 548786 1/2-1 Tablet(s) PO TID PRN 07/18/2016 01/28/2017 Inactive clonazepam 1 mg tablet RxNorm: 611249 1 Tablet(s) PO Q8 as needed 05/31/2016 05/29/2016 Inactive clonazepam 1 mg tablet RxNorm: 362712 1 Tablet(s) PO Q8 as needed 05/31/2016 08/28/2016 Inactive Toujeo SoloStar 300 unit/mL (1.5 mL) subcutaneous insulin pen RxNorm: 7917169 10 Unit(s) SQ daily 05/23/2016 01/28/2017 Inactive Crestor 10 mg tablet RxNorm: 059115 1 Tablet(s) PO QHS 201501/28/2017 Inactive Crestor 10 mg tablet RxNorm: 985208 1 Tablet(s) PO QHS 201505/18/2016 Inactive clonazepam 1 mg tablet RxNorm: 009788 1 Tablet(s) PO Q8 as needed 04/25/2016 05/30/2016 Inactive prednisone 20 mg tablet RxNorm: 443641 3 Tablet(s) PO daily 06/201602/10/2016 Inactive prednisone 20 mg tablet RxNorm: 834423 3 Tablet(s) PO daily 06/201605/14/2016 Inactive Kenalog 40 mg/mL suspension for injection RxNorm: 3471822 Milliliter(s) Inj 01/20/2016 01/20/2016 Inactive aspirin 81 mg tablet,delayed release RxNorm: 171692 1 Tablet(s) PO daily No Start Date Active Brilinta 90 mg tablet RxNorm: 5602376 1 Tablet(s) PO BID No Start Date Active acetaminophen 500 mg tablet RxNorm: 467699 1-2 Tablet(s) PO as needed No Start Date Active clopidogrel 75 mg tablet RxNorm: 368068 1 Tablet(s) PO daily No Start Date 02/28/2017 Inactive Novolog Flexpen U-100 Insulin aspart 100 unit/mL subcutaneous RxNorm: 3966237 5 units with breakfast lunch and 10 supper Unit(s) SQ No Start Date 06/17/2018 Inactive clonazepam 1 mg tablet RxNorm: 961729 1 Tablet(s) PO QHS No Start Date 04/24/2016 Inactive Coreg 6.25 mg tablet RxNorm: 827485 1 Tablet(s) PO BID No Start Date 09/29/2018 Inactive acyclovir 400 mg tablet RxNorm: 623819 2 Tablet(s) PO 5x daily No Start Date 02/28/2017 Inactive Lyrica 50 mg capsule RxNorm: 069808 Capsule(s) PO BID No Start Date 06/09/2018 Inactive Vraylar 3 mg capsule RxNorm: 4501773 1 Capsule(s) PO daily No Start Date 03/12/2018 Inactive valsartan 80 mg tablet RxNorm: 919396 1 Tablet(s) PO daily No Start Date 10/22/2018 Inactive Medication Administered Medication Codes Instructions Start Date Status ketorolac 60 mg/2 mL intramuscular solution RxNorm: 6021494 Milliliter 10/21/2018 No longer Active Kenalog 40 mg/mL suspension for injection RxNorm: 4148368 1.5Milliliter 09/30/2018 No longer Active Kenalog 40 mg/mL suspension for injection RxNorm: 5578052 Milliliter 09/11/2018 No longer Active Kenalog 40 mg/mL suspension for injection RxNorm: 7909296 Milliliter 06/28/2018 No longer Active ketorolac 30 mg/mL injection solution RxNorm: 082373 2Milliliter 05/02/2018 No longer Active ceftriaxone 500 mg solution for injection RxNorm: 5304615 1Milliliter 02/16/2017 No longer Active Kenalog 40 mg/mL suspension for injection RxNorm: 0539378 1Milliliter 02/16/2017 No longer Active ceftriaxone 1 gram solution for injection RxNorm: 7207365 10/06/2016 No longer Active Kenalog 40 mg/mL suspension for injection RxNorm: 8553192 Milliliter 01/20/2016 No longer Active Immunizations Vaccine Codes Date Status Influenza CVX: 141 07/22/2018 completed Influenza CVX: 141 08/16/2017 completed Assessments Condition Codes Effective Dates Essential (primary) hypertension ICD-10: I10 ICD-9: 401.1 03/07/2019 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-10: I95.2 ICD-9: 458.8 02/27/2019 Other fatigue ICD-10: R53.83 ICD-9: 780.79 02/17/2019 Atherosclerotic heart disease of [place] coronary artery without angina pectoris ICD-10: I25.10 ICD-9: 414.00 01/13/2019 Type 2 diabetes mellitus with hyperglycemia ICD-10: [...] middle finger ICD-10: M65.331 ICD-9: 727.03 10/24/2018 Type 2 diabetes mellitus with foot ulcer [...] Orthostatic hypotension ICD-10: I95.1 ICD-9: 458.0 03/07/2018 Gastro-esophageal reflux disease without esophagitis ICD-10 : [...] Visit Reason For Visit Effective Dates Notes tinnitus 03/07/2019 blood pressure followup 02/27/2019 vertigo 02/17/2019 Hospital Follow Up 01/13/2019 chest pain/pressure 12/31/2018 chest pain/pressure 12/26/2018 cough [...] Item Item Code Result Date Culture Sputum 578586 LOWER RESPIRATORY TRACT CULTURE SEE NOTES 11/14/2018 Culture Sputum 557609 LOWER RESPIRATORY TRACT CULTURE SEE NOTES 10/16/2018 LIPID GRP CHOLESTEROL TNP:Duplicate Order 09/10/2018 LIPID GRP Triglyceride TNP:Duplicate Order 2017 LIPID GRP [id number] HDL CHOLESTEROL TNP:Duplicate Order 2017 LIPID GRP 9506950 Chol/HDL Ratio TNP:Duplicate Order 2017 LIPID GRP [id number] LDL Cholesterol TNP:Duplicate Order 2017 A1C HPLC 7413613 Hgb A1c 13507-3 TNP:Duplicate Order 2017 C Diff An [id number] GDH TNP:Lab Request 06/22/2018 C Diff An [id number] Toxin A/B TNP:Lab Request 06/22/2018 C Diff An [id number] C Diff Analyzer TNP:Lab Request 2017 C Diff An [id number] IC OK? TNP:Lab Request 06/22/2018 CBC [id number] WBC 6.4 10e9/L 05/02/2018 CBC 6135366 RBC 5.60 10e12/L 05/02/2018 CBC 7614840 HEMOGLOBIN 17.0 g/dL 05/02/2018 CBC 4234875 HEMATOCRIT 48.0 % 05/02/2018 CBC 8526494 MCV 85.7 fL 05/02/2018 CBC 3953099 MCH 30.4 pg 05/02/2018 CBC 5156347 MCHC 35.4 g/dL 05/02/2018 CBC 7861209 PLATELET COUNT 166 10e9/L 05/02/2018 CBC 3658297 Mean Plt Volume 11.6 fL 05/02/2018 CBC 7738438 Neut Auto 48.6 % 05/02/2018 CBC 7409503 Lymph Auto 41.7 % 05/02/2018 CBC 7087608 [place] Auto 8.1 % 05/02/2018 CBC 6080788 RDW 13.1 % 05/02/2018 CBC 2670681 Eos Auto 1.1 % 05/02/2018 CBC 5044616 Baso Auto 0.5 % 05/02/2018 CBC 5823039 Neutrophil Abs 3.11 10e9/L 05/02/2018 CBC 1343709 Lymphocyte Abs 2.67 10e9/L 05/02/2018 CBC 1391717 Monocyte Abs 0.52 10e9/L 05/02/2018 CBC 2253369 Eosinophil Abs 0.07 10e9/L 05/02/2018 CBC 0634743 RDW-SD 40.0 fL 05/02/2018 CBC 9481573 Basophil Abs 0.03 10e9/L 05/02/2018 CHEM 14 7696151 AST 17 U/L 05/02/2018 CHEM 14 4717311 ALT 17 U/L 05/02/2018 CHEM 14 9417124 BUN 17 mg/dL 05/02/2018 CHEM 14 1318873 ALBUMIN 4.0 g/dL 05/02/2018 CHEM 14 3433030 CHLORIDE 97 mmol/L 05/02/2018 CHEM 14 2692084 Bili Total 0.9 mg/dL 05/02/2018 CHEM 14 0910388 ALK PHOS 67 U/L 05/02/2018 CHEM 14 1197384 SODIUM 135 mmol/L 05/02/2018 CHEM 14 9069332 CREATININE 1.18 mg/dL 05/02/2018 CHEM 14 2259181 CALCIUM 9.4 mg/dL 05/02/2018 CHEM 14 7311107 POTASSIUM 4.4 mmol/L 05/02/2018 CHEM 14 7360748 TOTAL PROTEIN 6.9 g/dL 05/02/2018 CHEM 14 8977975 GLUCOSE 316 mg/dL 05/02/2018 CHEM 14 9414428 Bicarbonate 29 mmol/L 05/02/2018 CHEM 14 2148633 AGAP 9 mmol/L 05/02/2018 MEAN GLUC 2127887 Calc Mean Gluc 283 mg/dL 05/02/2018 A1C HPLC 7017926 Hgb A1c 59925-4 11.5 % 05/02/2018 GFR CALC 0255806 GFR Non Afr Amr >60 mL/min 05/02/2018 GFR CALC 8489103 GFR Afr Amr >60 mL/min 05/02/2018 JADE Rickey [id number] CR Lang Complete 02/28/2018 GFR CALC 8629611 GFR Non Afr Amr >60 mL/min 02/28/2018 GFR CALC 0181802 GFR Afr Amr >60 mL/min 02/28/2018 UA W/CII 9916059 UA Urine Appear Normal 02/28/2018 UA W/CII 9903662 UA Protein 1+ 02/28/2018 UA W/CII 6554150 UA Hemoglobin Negative 02/28/2018 UA W/CII 5761382 UA Glucose 4+ 02/28/2018 UA W/CII 7807733 UA Ketones Trace 02/28/2018 UA W/CII 1791587 UA pH 5.5 02/28/2018 UA W/CII 1384236 U Spec [place] 1.015 02/28/2018 UA W/CII 4044202 UA Bilirubin Negative 02/28/2018 UA W/CII 1331697 UA Nitrite NEG 02/28/2018 UA W/CII 8134258 UA Leuk Esteras Negative 02/28/2018 MICR 8877782 UA WBC/hpf 1 02/28/2018 MICR 9224273 UA RBC hpf 2 02/28/2018 MICR 7879595 UA WBC auto 3.8 /uL 02/28/2018 MICR 4326094 UA RBC auto 12.2 /uL 02/28/2018 MICR 1409766 UA SQ EPI auto 2.3 /uL 02/28/2018 MICR 1914486 UA H Cast auto 0.10 /uL 02/28/2018 CBC 6213388 WBC 6.4 10e9/L 02/28/2018 CBC 4383832 RBC 5.51 10e12/L 02/28/2018 CBC 4111473 HEMOGLOBIN 16.7 g/dL 02/28/2018 CBC 6111943 HEMATOCRIT 46.9 % 02/28/2018 CBC 4070965 MCV 85.1 fL 02/28/2018 CBC 2542536 MCH 30.3 pg 02/28/2018 CBC 9471663 MCHC 35.6 g/dL 02/28/2018 CBC 4446254 PLATELET COUNT 173 10e9/L 02/28/2018 CBC 8956549 Mean Plt Volume 11.6 fL 02/28/2018 CBC 1736457 Neut Auto 51.8 % 02/28/2018 CBC 1988126 Lymph Auto 39.9 % 02/28/2018 CBC 7078567 [place] Auto 7.3 % 02/28/2018 CBC 5767305 RDW 13.3 % 02/28/2018 CBC 2719708 Eos Auto 0.8 % 02/28/2018 CBC 8929447 Baso Auto 0.2 % 02/28/2018 CBC 0900085 Neutrophil Abs 3.32 10e9/L 02/28/2018 CBC 8257011 Lymphocyte Abs 2.55 10e9/L 02/28/2018 CBC 4385676 Monocyte Abs 0.47 10e9/L 02/28/2018 CBC 4458919 Eosinophil Abs 0.05 10e9/L 02/28/2018 CBC 0315532 RDW-SD 40.8 fL 02/28/2018 CBC 2847122 Basophil Abs 0.01 10e9/L 02/28/2018 CHEM 14 2408290 AST 17 U/L 02/28/2018 CHEM 14 8191038 ALT 17 U/L 02/28/2018 CHEM 14 0952191 BUN 20 mg/dL 02/28/2018 CHEM 14 3755546 ALBUMIN 4.1 g/dL 02/28/2018 CHEM 14 5280675 CHLORIDE 97 mmol/L 02/28/2018 CHEM 14 9551353 Bili Total 1.3 mg/dL 02/28/2018 CHEM 14 3976938 ALK PHOS 78 U/L 02/28/2018 CHEM 14 4962991 SODIUM 135 mmol/L 02/28/2018 CHEM 14 9462996 CREATININE 1.09 mg/dL 02/28/2018 CHEM 14 0958385 CALCIUM 9.6 mg/dL 02/28/2018 CHEM 14 9689093 POTASSIUM 3.8 mmol/L 02/28/2018 CHEM 14 3502201 TOTAL PROTEIN 7.3 g/dL 02/28/2018 CHEM 14 1662749 GLUCOSE 349 mg/dL 02/28/2018 CHEM 14 7982996 Bicarbonate 29 mmol/L 02/28/2018 CHEM 14 4952614 AGAP 9 mmol/L 02/28/2018 [place] Spotted Fever Igg/Igm 953436 FEI MT SPOTTED FEVER IGM EIA . 09/05/2017 [place] Spotted Fever Igg/Igm 052270 RMSF, IGM 0.17 index 09/05/2017 [place] Spotted Fever Igg/Igm 667221 FEI MT SPOTTED FEVER IGG EIA FLEX . 09/05/2017 [place] Spotted Fever Igg/Igm 697186 RMSF, IGG SCREEN-FLEX Positive 09/05/2017 Fei Mtn Spot'D Fev Igg 883451 RMSF, IGG -TITER IFA <1:64 11/2016 Ehrlichia Chaffeensis Antibody Igm 063666 EHRLICHIA CHAFFEENSIS IGM < 1:16 09/03/2017 Ehrlichia Chaffeensis Antibody Igg 284469 EHRLICHIA CHAFFEENSIS IGG <1:64 09/03/2017 Lymes Disease Total Antibodies With Western Blot Reflex B. BURGDORFERI, IGG/IGM 0.223 08/30/2017 Lymes Disease Total Antibodies With Western Blot Reflex C-Reactive Protein Qnt Crqnt CRP 0.00 mg/dl 08/27/2017 Sed Rate Ord21 ESR 8 mm/hr 08/27/2017 Comp Metabolic Qgl942 NA 135 mEq/L 08/16/2017 Comp Metabolic Esp631 K 4.1 mEq/L 08/16/2017 Comp Metabolic Xry833 CL 98 mEq/L 08/16/2017 Comp Metabolic Bnh109 CO2 28.0 mEq/L 08/16/2017 Comp Metabolic Etq203 ANION GAP 13 08/16/2017 Comp Metabolic Ebp841 GLUCOSE 299 mg/dL 08/16/2017 Comp Metabolic Uaw735 Creat 0.9 mg/dL 08/16/2017 Comp Metabolic Ils353 eGFR 90 ml/min/1.73m2 08/16/2017 Comp Metabolic Zdp278 BUN 20 mg/dL 08/16/2017 Comp Metabolic Wnw049 B/C Ratio 21.5 Ratio 08/16/2017 Comp Metabolic Kwd427 CALCIUM 9.2 mg/dL 08/16/2017 Comp Metabolic Pju756 ALK PHOS 84 U/L 08/16/2017 Comp Metabolic Zwe823 AST(SGOT) 19 U/L 08/16/2017 Comp Metabolic Lfq648 ALT(SGPT) 24 U/L 08/16/2017 Comp Metabolic Kel617 BILI T 1.1 mg/dL 08/16/2017 Comp Metabolic Jxf409 ALBUMIN 4.2 g/dL 08/16/2017 Comp Metabolic Zea605 TPRO 7.2 g/dL 08/16/2017 Comp Metabolic Ngk649 GLOB 3.0 g/dL 08/16/2017 Comp Metabolic Xmd047 A/G Ratio 1.4 Ratio 08/16/2017 Comp Metabolic Ccd693 Osmo 284 mOsmo 08/16/2017 %Hba1C Gmi474 % HbA1c 35737-3 12.5 % 08/16/2017 %Hba1C Ptz442 Gluc Ave 312 mg/dL 08/16/2017 Urine Culture Ucult Preliminary NO Growth Day 1 06/23/2017 Urine Culture Ucult Complete NO Growth Day 2 06/23/2017 C RAP A SC [id number] Strep A Negative 06/08/2017 %Hba1C Mkr125 % HbA1c 31272-8 9.5 % 05/04/2017 %Hba1C Oou729 Gluc Ave 226 mg/dL 05/04/2017 Tsh Ord6 [...] 31.7 pg 05/04/2017 Cbc With Differential Ord2 [place]% 8.5 % 05/04/2017 Cbc With Differential Ord2 [...] 2.48 K/ul 05/04/2017 Cbc With Differential Ord2 [place] ABS# 0.5 K/ul 05/04/2017 Cbc With Differential Ord2 [place] ABS# 0.1 K/ul 05/04/2017 Cbc With Differential Ord2 Baso ABS# 0.0 K/ul 05/04/2017 Comp Metabolic Ddh593 NA 135 mEq/L 05/04/2017 Comp Metabolic Xie045 K 4.2 mEq/L 05/04/2017 Comp Metabolic Rke967 CL 99 mEq/L 05/04/2017 Comp Metabolic Vsi515 CO2 26.0 mEq/L 05/04/2017 Comp Metabolic Qui395 ANION GAP 14 05/04/2017 Comp Metabolic Ius713 GLUCOSE 277 mg/dL 05/04/2017 Comp Metabolic Dql347 Creat 0.9 mg/dL 05/04/2017 Comp Metabolic Rgn137 eGFR 96 ml/min/1.73m2 05/04/2017 Comp Metabolic Cvm038 BUN 23 mg/dL 05/04/2017 Comp Metabolic Dtk142 B/C Ratio 26.1 Ratio 05/04/2017 Comp Metabolic Uzm371 CALCIUM 8.9 mg/dL 05/04/2017 Comp Metabolic Opz252 ALK PHOS 81 U/L 05/04/2017 Comp Metabolic Iyh822 AST(SGOT) 21 U/L 05/04/2017 Comp Metabolic Fse839 ALT(SGPT) 27 U/L 05/04/2017 Comp Metabolic Maw508 BILI T 1.2 mg/dL 05/04/2017 Comp Metabolic Kjc010 ALBUMIN 4.0 g/dL 05/04/2017 Comp Metabolic Osn340 TPRO 6.7 g/dL 05/04/2017 Comp Metabolic Lty799 GLOB 2.7 g/dL 05/04/2017 Comp Metabolic Igt142 A/G Ratio 1.5 Ratio 05/04/2017 Comp Metabolic Tev743 Osmo 284 mOsmo 05/04/2017 C A/B FLU [id number] Influenza A Scr Negative 02/16/2017 C A/B FLU [id number] Influenza B Scr Positive 02/16/2017 Cbc With [...] 30.3 pg 05/23/2016 Cbc With Differential Ord2 [place]% 8.8 % 05/23/2016 Cbc With Differential Ord2 [...] 2.07 K/ul 05/23/2016 Cbc With Differential Ord2 [place] ABS# 0.5 K/ul 05/23/2016 Cbc With Differential Ord2 [place] ABS# 0.1 K/ul 05/23/2016 Cbc With Differential Ord2 Baso ABS# 0.0 K/ul 05/23/2016 Lipid Ord30 CHOL 397 mg/dL 05/17/2016 Lipid Ord30 HDL 48.0 mg/dl 05/17/2016 Lipid Ord30 TRIG 578 mg/dL 05/17/2016 Lipid Ord30 LDL Unable to calculate Due to elevated triglycerides mg/dL 05/17/2016 Lipid Ord30 C/HDL 8.3 Ratio 05/17/2016 %Hba1C Ttw278 % HbA1c 73551-2 12.4 % 05/16/2016 %Hba1C Bhp016 Gluc Ave 309 mg/dL 05/16/2016 Cbc With [...] 30.4 pg 05/15/2016 Cbc With Differential Ord2 [place]% 7.8 % 05/15/2016 Cbc With Differential Ord2 [...] 2.04 K/ul 05/15/2016 Cbc With Differential Ord2 [place] ABS# 0.5 K/ul 05/15/2016 Cbc With Differential Ord2 [place] ABS# 0.1 K/ul 05/15/2016 Cbc With Differential Ord2 Baso ABS# 0.0 K/ul 05/15/2016 Tsh Ord6 hTSH II 1.70 uIU/mL 05/15/2016 Comp Metabolic Uzn825 NA 135 mEq/L 05/15/2016 Comp Metabolic Qdj939 K 3.9 mEq/L 05/15/2016 Comp Metabolic Cqe620 CL 96 mEq/L 05/15/2016 Comp Metabolic Taa163 CO2 27.0 mEq/L 05/15/2016 Comp Metabolic Sbw174 ANION GAP 16 05/15/2016 Comp Metabolic Mbs699 GLUCOSE 183 mg/dL 05/15/2016 Comp Metabolic Crn216 Creat 1.1 mg/dL 05/15/2016 Comp Metabolic Hiz569 eGFR 71 ml/min/1.73m2 05/15/2016 Comp Metabolic Sul592 BUN 17 mg/dL 05/15/2016 Comp Metabolic Nyd552 B/C Ratio 14.9 Ratio 05/15/2016 Comp Metabolic Yog500 CALCIUM 9.6 mg/dL 05/15/2016 Comp Metabolic Sqv262 ALK PHOS 100 U/L 05/15/2016 Comp Metabolic Jha090 AST(SGOT) 20 U/L 05/15/2016 Comp Metabolic Tpn560 ALT(SGPT) 20 U/L 05/15/2016 Comp Metabolic Kos317 BILI T 1.3 mg/dL 05/15/2016 Comp Metabolic Hvb657 ALBUMIN 4.6 g/dL 05/15/2016 Comp Metabolic Loz002 TPRO 8.1 g/dL 05/15/2016 Comp Metabolic Yqv577 GLOB 3.5 g/dL 05/15/2016 Comp Metabolic Fxt045 A/G Ratio 1.3 Ratio 05/15/2016 Comp Metabolic Pwg512 Osmo 276 mOsmo 05/15/2016 Review of Systems System Result Effective Dates Constitutional No recent illness 2018 Constitutional No anorexia 03/07/2019 Constitutional No night sweats 2018 Constitutional No chills 03/07/2019 Constitutional No diaphoresis 03/07/2019 Constitutional fatigue 03/07/2019 Constitutional No fever 03/07/2019 Constitutional No insomnia 03/07/2019 Constitutional No malaise 03/07/2019 Constitutional No weight loss 03/07/2019 Constitutional No weight gain 03/07/2019 Eyes No eye discharge 03/07/2019 Eyes No eye erythema 03/07/2019 Ears/Nose/Throat/Neck dizziness 2018 Ears/Nose/Throat/Neck headache 2018 Cardiovascular No chest pain/pressure 01/2019 Cardiovascular No dyspnea 03/07/2019 Cardiovascular No edema 03/07/2019 Respiratory No cough 03/07/2019 Gastrointestinal No abdominal pain 2018 Gastrointestinal No constipation 2018 Gastrointestinal No diarrhea 03/07/2019 Genitourinary/Nephrology No dysuria 03/07 Musculoskeletal No joint complaint 2018 Dermatologic No rash 03/07/2019 Neurologic No alteration of consciousness 03/07/2019 Psychiatric No depression 03/07/2019 Endocrine No dry or coarse skin 2018 Neurologic tinnitus 03/07/2019 Ears/Nose/Throat/Neck nasal allergies 01/2019 Constitutional recent illness 02/27/2019 Constitutional No anorexia 02/27/2019 Constitutional No night sweats 2018 Constitutional No chills 02/27/2019 Constitutional No diaphoresis 02/27/2019 Constitutional No fatigue 02/27/2019 Constitutional No fever 02/27/2019 Constitutional No insomnia 02/27/2019 Constitutional No malaise 02/27/2019 Constitutional No weight loss 02/27/2019 Constitutional No weight gain 02/27/2019 Eyes No eye discharge 02/27/2019 Eyes No eye erythema 02/27/2019 Ears/Nose/Throat/Neck dizziness 2018 Ears/Nose/Throat/Neck No headache 2018 Cardiovascular No chest pain/pressure Respiratory No cough 02/27/2019 Gastrointestinal No abdominal pain 2018 Gastrointestinal No nausea 02/27/2019 Gastrointestinal No vomiting 02/27/2019 Genitourinary/Nephrology No dysuria 02/27 Musculoskeletal joint complaint 2018 Dermatologic No rash 02/27/2019 Neurologic No alteration of consciousness 02/27/2019 Neurologic dizziness 02/27/2019 Psychiatric anxiety 02/27/2019 Constitutional recent illness 02/17/2019 Constitutional No anorexia 02/17/2019 Constitutional No night sweats 2018 Constitutional No chills 02/17/2019 Constitutional No diaphoresis 02/17/2019 Constitutional fatigue 02/17/2019 Constitutional No fever 02/17/2019 Constitutional No insomnia 02/17/2019 Constitutional malaise 02/17/2019 Constitutional No weight loss 02/17/2019 Constitutional No weight gain 02/17/2019 Eyes No eye discharge 02/17/2019 Eyes No eye erythema 02/17/2019 Ears/Nose/Throat/Neck dizziness 2018 Ears/Nose/Throat/Neck No headache 2018 Cardiovascular No chest pain/pressure Respiratory No cough 02/17/2019 Gastrointestinal No abdominal pain 2018 Gastrointestinal No vomiting 02/17/2019 Gastrointestinal No nausea 02/17/2019 Genitourinary/Nephrology No dysuria 02/17 Musculoskeletal joint complaint 2018 Dermatologic No rash 02/17/2019 Neurologic No alteration of consciousness 02/17/2019 Neurologic dizziness 02/17/2019 Constitutional No recent illness 2018 Constitutional No anorexia 01/13/2019 Constitutional No night sweats 2018 Constitutional No chills 01/13/2019 Constitutional No diaphoresis 01/13/2019 Constitutional fatigue 01/13/2019 Constitutional No fever 01/13/2019 Constitutional No insomnia 01/13/2019 Constitutional No malaise 01/13/2019 Constitutional No weight loss 01/13/2019 Constitutional No weight gain 01/13/2019 Eyes No eye discharge 01/13/2019 Eyes No eye erythema 01/13/2019 Ears/Nose/Throat/Neck No dizziness 2018 Ears/Nose/Throat/Neck No headache 2018 Cardiovascular No chest pain/pressure 09/2019 Cardiovascular No dyspnea 01/13/2019 Respiratory No cough 01/13/2019 Gastrointestinal No abdominal pain 2018 Gastrointestinal No constipation 2018 Gastrointestinal No diarrhea 01/13/2019 Genitourinary/Nephrology No dysuria 01/13 Dermatologic No rash 01/13/2019 Neurologic No alteration of consciousness 01/13/2019 Psychiatric No depression 01/13/2019 Endocrine No dry or coarse skin 2018 Musculoskeletal No joint complaint 2018 Cardiovascular No edema 01/13/2019 Constitutional recent illness 12/31/2018 Constitutional anorexia 12/31/2018 [...] 1994 Constitutional general appearance Overall: well developed 03/07/2019 None Full Exam - General 1994 Constitutional general appearance Overall: in no acute distress 03/07/2019 None Full Exam - General 1994 Constitutional general appearance Overall: well nourished 03/07/2019 None Full Exam - General 1994 Eyes conjunctiva /eyelids Overall: conjunctiva clear 03/07/2019 None Full Exam - General 1994 Eyes conjunctiva /eyelids Overall: cornea clear 03/07/2019 None Full Exam - General 1994 Eyes conjunctiva /eyelids Overall: eyelids normal 03/07/2019 None Full Exam - General 1994 Ears/Nose/Throat lips/teeth/gingiva Overall: benign lips 03/07/2019 None Full Exam - General 1994 Ears/Nose/Throat oral cavity/pharynx/larynx Overall: oral mucosa clear 03/07/2019 None Full Exam - General 1994 Respiratory auscultation Overall: breath sounds clear bilaterally 03/07/2019 None Full Exam - General 1994 Respiratory respiratory effort/rhythm Overall: no retractions 03/07/2019 None Full Exam - General 1994 Respiratory respiratory effort/rhythm Overall: normal rate 03/07/2019 None Full Exam - General 1994 Cardiovascular auscultation of heart Overall: normal heart sounds 03/07/2019 None Full Exam - General 1994 Abdomen abdominal exam Overall: normal bowel sounds 03/07/2019 None Full Exam - General 1994 Musculoskeletal gait and station Overall: normal gait 03/07/2019 None Full Exam - General 1994 Musculoskeletal gait and station Overall: normal station 03/07/2019 None Full Exam - General 1994 Musculoskeletal head and neck Overall: head atraumatic 03/07/2019 None Full Exam - General 1994 Neurologic cranial nerves Overall: crainial nerves 2 - 12 grossly intact 03/07/2019 None Full Exam - General 1994 Psychiatric orientation/consciousness Overall: oriented to person, place and time 03/07/2019 None Full Exam - General 1994 Psychiatric mood and affect Overall: normal mood and affect 03/07/2019 None Full Exam - General 1994 Cardiovascular auscultation of heart Rate: tachycardia 03/07/2019 None Full Exam - General 1994 Constitutional general appearance Overall: well developed 02/27/2019 None Full Exam - General 1994 Constitutional general appearance Overall: in no acute distress 02/27/2019 None Full Exam - General 1994 Constitutional general appearance Overall: well nourished 02/27/2019 None Full Exam - General 1994 Eyes conjunctiva /eyelids Overall: conjunctiva clear 02/27/2019 None Full Exam - General 1994 Eyes conjunctiva /eyelids Overall: cornea clear 02/27/2019 None Full Exam - General 1994 Eyes conjunctiva /eyelids Overall: eyelids normal 02/27/2019 None Full Exam - General 1994 Ears/Nose/Throat lips/teeth/gingiva Overall: benign lips 02/27/2019 None Full Exam - General 1994 Ears/Nose/Throat oral cavity/pharynx/larynx Overall: oral mucosa clear 02/27/2019 None Full Exam - General 1994 Respiratory auscultation Overall: breath sounds clear bilaterally 02/27/2019 None Full Exam - General 1994 Respiratory respiratory effort/rhythm Overall: no retractions 02/27/2019 None Full Exam - General 1994 Respiratory respiratory effort/rhythm Overall: normal rate 02/27/2019 None Full Exam - General 1994 Cardiovascular auscultation of heart Overall: regular rate 02/27/2019 None Full Exam - General 1994 Cardiovascular auscultation of heart Overall: normal heart sounds 02/27/2019 None Full Exam - General 1994 Abdomen abdominal exam Overall: normal bowel sounds 02/27/2019 None Full Exam - General 1994 Musculoskeletal gait and station Overall: normal gait 02/27/2019 None Full Exam - General 1994 Musculoskeletal gait and station Overall: normal station 02/27/2019 None Full Exam - General 1994 Musculoskeletal head and neck Overall: head atraumatic 02/27/2019 None Full Exam - General 1994 Neurologic cranial nerves Overall: crainial nerves 2 - 12 grossly intact 02/27/2019 None Full Exam - General 1994 Psychiatric orientation/consciousness Overall: oriented to person, place and time 02/27/2019 None Full Exam - General 1994 Psychiatric mood and affect Overall: normal mood and affect 02/27/2019 None Full Exam - General 1994 Constitutional general appearance Overall: well developed 02/17/2019 None Full Exam - General 1994 Constitutional general appearance Overall: in no acute distress 02/17/2019 None Full Exam - General 1994 Constitutional general appearance Overall: well nourished 02/17/2019 None Full Exam - General 1994 Eyes conjunctiva /eyelids Overall: conjunctiva clear 02/17/2019 None Full Exam - General 1994 Eyes conjunctiva /eyelids Overall: cornea clear 02/17/2019 None Full Exam - General 1994 Eyes conjunctiva /eyelids Overall: eyelids normal 02/17/2019 None Full Exam - General 1994 Ears/Nose/Throat lips/teeth/gingiva Overall: benign lips 02/17/2019 None Full Exam - General 1994 Ears/Nose/Throat oral cavity/pharynx/larynx Overall: oral mucosa clear 02/17/2019 None Full Exam - General 1994 Respiratory auscultation Overall: breath sounds clear bilaterally 02/17/2019 None Full Exam - General 1994 Respiratory respiratory effort/rhythm Overall: no retractions 02/17/2019 None Full Exam - General 1994 Respiratory respiratory effort/rhythm Overall: normal rate 02/17/2019 None Full Exam - General 1994 Cardiovascular auscultation of heart Overall: regular rate 02/17/2019 None Full Exam - General 1994 Cardiovascular auscultation of heart Overall: normal heart sounds 02/17/2019 None Full Exam - General 1994 Abdomen abdominal exam Overall: normal bowel sounds 02/17/2019 None Full Exam - General 1994 Musculoskeletal gait and station Overall: normal gait 02/17/2019 None Full Exam - General 1994 Musculoskeletal gait and station Overall: normal station 02/17/2019 None Full Exam - General 1994 Musculoskeletal head and neck Overall: head atraumatic 02/17/2019 None Full Exam - General 1994 Neurologic cranial nerves Overall: crainial nerves 2 - 12 grossly intact 02/17/2019 None Full Exam - General 1994 Psychiatric orientation/consciousness Overall: oriented to person, place and time 02/17/2019 None Full Exam - General 1994 Psychiatric mood and affect Overall: normal mood and affect 02/17/2019 None Full Exam - General 1994 Constitutional general appearance Overall: well developed 01/13/2019 None Full Exam - General 1994 Constitutional general appearance Overall: in no acute distress 01/13/2019 None Full Exam - General 1994 Constitutional general appearance Overall: well nourished 01/13/2019 None Full Exam - General 1995 Eyes conjunctiva /eyelids Overall: conjunctiva clear 01/13/2019 None Full Exam - General 1994 Eyes conjunctiva /eyelids Overall: cornea clear 01/13/2019 None Full Exam - General 1994 Eyes conjunctiva /eyelids Overall: eyelids normal 01/13/2019 None Full Exam - General 1994 Ears/Nose/Throat lips/teeth/gingiva Overall: benign lips 01/13/2019 None Full Exam - General 1994 Ears/Nose/Throat oral cavity/pharynx/larynx Overall: oral mucosa clear 01/13/2019 None Full Exam - General 1994 Respiratory auscultation Overall: breath sounds clear bilaterally 01/13/2019 None Full Exam - General 1994 Respiratory respiratory effort/rhythm Overall: no retractions 01/13/2019 None Full Exam - General 1994 Respiratory respiratory effort/rhythm Overall: normal rate 01/13/2019 None Full Exam - General 1994 Cardiovascular auscultation of heart Overall: regular rate 01/13/2019 None Full Exam - General 1994 Cardiovascular auscultation of heart Overall: normal heart sounds 01/13/2019 None Full Exam - General 1994 Abdomen abdominal exam Overall: normal bowel sounds 01/13/2019 None Full Exam - General 1994 Musculoskeletal gait and station Overall: normal gait 01/13/2019 None Full Exam - General 1994 Musculoskeletal gait and station Overall: normal station 01/13/2019 None Full Exam - General 1994 Musculoskeletal head and neck Overall: head atraumatic 01/13/2019 None Full Exam - General 1994 Neurologic cranial nerves Overall: crainial nerves 2 - 12 grossly intact 01/13/2019 None Full Exam - General 1994 Psychiatric orientation/consciousness Overall: oriented to person, place and time 01/13/2019 None Full Exam - General 1994 Psychiatric mood and affect Overall: normal mood and affect 01/13/2019 None Full Exam - General 1994 Constitutional general appearance Overall: well developed 12/31/2018 None Full Exam - General 1994 Constitutional general appearance Overall: in no acute distress 12/31/2018 None Full Exam - General 1994 Constitutional general appearance Overall: well nourished 12/31/2018 None Full Exam - General 1994 Eyes conjunctiva /eyelids Overall: conjunctiva clear 12/31/2018 None Full Exam - General 1994 Eyes conjunctiva /eyelids Overall: cornea clear 12/31/2018 None Full Exam - General 1994 Eyes conjunctiva /eyelids Overall: eyelids normal 12/31/2018 None Full Exam - General 1994 Ears/Nose/Throat lips/teeth/gingiva Overall: benign lips 12/31/2018 None Full Exam - General 1995 Ears/Nose/Throat [...] of skin Location: face 05/04/2017 patch left zoroastrian Full Exam - General 1994 Constitutional general [...] rate 01/20/2016 None Procedures Procedure Codes Date URINALYSIS NONAUTO W/O SCOPE CPT-4: 06079 02/17/2019 KETOROLAC TROMETHAMINE INJ CPT-4: J1885 10/21/2018 TRIAMCINOLONE ACET INJ NOS CPT-4: J3301 09/30/2018 THER/PROPH/DIAG INJ SC/IM CPT-4: 53925 09/11/2018 TRIAMCINOLONE ACET INJ NOS CPT-4: J3301 09/11/2018 IMMUNIZATION ADMIN CPT -4: 11421 07/22/2018 FLU VAC NO PRSV 4 MENA 3 YRS+ CPT-4: 67730 07/22/2018 TRIAMCINOLONE ACET INJ NOS CPT-4: J3301 06/28/2018 KETOROLAC TROMETHAMINE INJ CPT-4: J1885 05/02/2018 FLU VAC NO PRSV 4 MENA 3 YRS+ CPT-4: 63542 08/16/2017 IMMUNIZATION ADMIN CPT -4: 35945 08/16/2017 URINALYSIS NONAUTO W/O SCOPE CPT-4: 10225 06/21/2017 TRIAMCINOLONE ACET INJ NOS CPT-4: J3301 05/04/2017 THER/PROPH/DIAG INJ SC/IM CPT-4: 64307 05/04/2017 TRIAMCINOLONE ACET INJ NOS CPT-4: J3301 02/16/2017 ROCEPHIN, PER 250 MG CPT-4: J0696 02/16/2017 ROCEPHIN, PER 250 MG CPT-4: J0696 10/06/2016 URINALYSIS NONAUTO W/O SCOPE CPT-4: 84899 07/18/2016 TRIAMCINOLONE ACET INJ NOS CPT-4: J3301 01/20/2016 Vital Signs Date Vital 03/07/2019 Blood Pressure 1: 110/70 Code : 8480-6 BMI: 33.0 Code : 59878-8 Heart Rate 1 : 112 bpm Height: 6'2" SpO2: 95% Weight: 257 lbs 02/27/2019 Blood Pressure 1: 110/80 Code : 8480-6 BMI: 33.0 Code : 23103-1 Heart Rate 1 : 89 bpm Height: 6'2" SpO2: 95% Weight: 257 lbs 02/17/2019 Blood Pressure 1: 120/80 Code : 8480-6 Blood Pressure 2: 102/80 Code: 8480-6 Heart Rate 1: 89 bpm SpO2: 96% 01/13/2019 Blood Pressure 1: 120/70 Code : 8480-6 BMI: 34.2 Code : 81426-1 Heart Rate 1 : 74 bpm Height: 6'2" SpO2: 96% Weight: 266 lbs 12/31/2018 Blood Pressure 1: 122/70 Code : 8480-6 BMI: 34.4 Code : 92527-6 Heart Rate 1 : 90 bpm Height: 6'2" SpO2: 97% Temperature: 36.6 (C) / 97.8 (F) Weight: 268 lbs 12/26/2018 Blood Pressure 1: 118/72 Code : 8480-6 BMI: 34.4 Code : 81101-9 Heart Rate 1 : 82 bpm Height: 6'2" SpO2: 98% Temperature: 36.6 (C) / 97.9 (F) Weight: 268 lbs 11/18/2018 Blood Pressure 1: 120/84 Code : 8480-6 BMI: 33.9 Code : 21358-1 Heart Rate 1 : 77 bpm Height: 6'2" SpO2: 99% Temperature: 36.7 (C) / 98.1 (F) Weight: 264 lbs 11/12/2018 Blood Pressure 1: 138/76 Code : 8480-6 BMI: 33.9 Code : 22720-9 Heart Rate 1 : 91 bpm Height: 6'2" SpO2: 99% Weight: 264 lbs 10/30/2018 Blood Pressure 1: 130/72 Code : 8480-6 BMI: 33.3 Code : 69247-9 Heart Rate 1 : 83 bpm Height: 6'2" SpO2: 95% Temperature: 36.5 (C) / 97.7 (F) Weight: 259 lbs 10/24/2018 Blood Pressure 1: 130/70 Code : 8480-6 Heart Rate 1: 95 bpm Height: 6'2" SpO2: 96% 10/23/2018 Blood Pressure 1: 100/70 Code : 8480-6 Blood Pressure 2: 102/70 Code: 8480-6 BMI: 33.3 Code: 39389-8 Heart Rate 1: 106 bpm Height: 6'2" SpO2: 98% Weight: 259 lbs 10/21/2018 Blood Pressure 1: 140/90 Code : 8480-6 BMI: 32.9 Code : 93842-8 Heart Rate 1 : 96 bpm Height: 6'2" SpO2: 92% Weight: 256 lbs 10/17/2018 Blood Pressure 1: 110/68 Code : 8480-6 BMI: 32.9 Code : 51007-4 Heart Rate 1 : 82 bpm Height: 6'2" SpO2: 97% Weight: 256 lbs 10/14/2018 Blood Pressure 1: 124/70 Code : 8480-6 BMI: 33.6 Code : 22766-4 Heart Rate 1 : 76 bpm Height: 6'2" SpO2: 99% Temperature: 36.3 (C) / 97.3 (F) Weight: 262 lbs 09/30/2018 Blood Pressure 1: 138/82 Code : 8480-6 BMI: 33.6 Code : 10306-6 Heart Rate 1 : 82 bpm Height: 6'2" SpO2: 98% Temperature: 36.3 (C) / 97.3 (F) Weight: 262 lbs 09/09/2018 Blood Pressure 1: 140/80 Code : 8480-6 BMI: 33.0 Code : 89955-3 Heart Rate 1 : 97 bpm Height: 6'2" SpO2: 93% Temperature: 36.8 (C) / 98.2 (F) Weight: 257 lbs 07/22/2018 Blood Pressure 1: 120/78 Code : 8480-6 BMI: 31.6 Code : 43028-1 Heart Rate 1 : 87 bpm Height: 6'2" SpO2: 98% Weight: 246 lbs 07/16/2018 Blood Pressure 1: 132/74 Code : 8480-6 BMI: 31.2 Code : 10513-2 Heart Rate 1 : 90 bpm Height: 6'2" SpO2: 96% Weight: 243 lbs 07/01/2018 Blood Pressure 1: 142/82 Code : 8480-6 BMI: 31.8 Code : 79755-8 Heart Rate 1 : 88 bpm Height: 6'2" SpO2: 98% Weight: 248 lbs 06/28/2018 Blood Pressure 1: 132/76 Code : 8480-6 BMI: 31.8 Code : 36493-4 Heart Rate 1 : 107 bpm Height: 6'2" SpO2: 98% Temperature: 37.9 (C) / 100.3 (F) Weight: 248 lbs 06/18/2018 Blood Pressure 1: 138/82 Code : 8480-6 BMI: 31.8 Code : 23918-1 Heart Rate 1 : 82 bpm Height: 6'2" SpO2: 97% Weight: 248 lbs 06/04/2018 Blood Pressure 1: 128/84 Code : 8480-6 BMI: 33.9 Code : 64949-9 Heart Rate 1 : 86 bpm Height: 6'2" SpO2: 95% Weight: 264 lbs 05/13/2018 Blood Pressure 1: 130/80 Code : 8480-6 BMI: 31.1 Code : 11726-9 Heart Rate 1 : 100 bpm Height: 6'2" SpO2: 94% Weight: 242 lbs 05/02/2018 Blood Pressure 1: 134/84 Code : 8480-6 BMI: 31.2 Code : 71441-7 Heart Rate 1 : 93 bpm Height: 6'2" SpO2: 98% Weight: 243 lbs 04/29/2018 Blood Pressure 1: 142/88 Code : 8480-6 BMI: 31.6 Code : 63099-0 Heart Rate 1 : 96 bpm Height: 6'2" SpO2: 96% Temperature: 36.7 (C) / 98.1 (F) Weight: 246 lbs 03/13/2018 Blood Pressure 1: 120/76 Code : 8480-6 BMI: 30.9 Code : 44764-3 Heart Rate 1 : 112 bpm Height: 6'2" SpO2: 97% Weight: 241 lbs 03/07/2018 Blood Pressure 1: 108/78 Code : 8480-6 BMI: 30.0 Code : 03653-3 Heart Rate 1 : 87 bpm Height: 6'2" SpO2: 98% Weight: 234 lbs 02/28/2018 Blood Pressure 1: 106/74 Code : 8480-6 BMI: 30.0 Code : 37805-1 Heart Rate 1 : 101 bpm Height: 6'2" SpO2: 98% Temperature: 36.4 (C) / 97.5 (F) Weight: 234 lbs 02/13/2018 Blood Pressure 1: 110/78 Code : 8480-6 BMI: 30.0 Code : 76304-0 Heart Rate 1 : 106 bpm Height: 6'2" SpO2: 98% Weight: 234 lbs 01/29/2018 Blood Pressure 1: 106/68 Code : 8480-6 BMI: 30.0 Code : 32881-1 Heart Rate 1 : 108 bpm Height: 6'2" SpO2: 98% Weight: 234 lbs 08/27/2017 Blood Pressure 1: 134/76 Code : 8480-6 Heart Rate 1: 98 bpm Height: SpO2: 97% Weight: 08/16/2017 Blood Pressure 1: 128/80 Code : 8480-6 BMI: 32.0 Code : 29906-0 Heart Rate 1 : 94 bpm Height: [...] Code : 8480-6 BMI: 31.8 Code : 72893-3 Heart Rate 1 : 102 bpm Height: [...] Code : 8480-6 BMI: 31.8 Code : 34637-3 Heart Rate 1 : 85 bpm Height: 6'2" SpO2: 96% Temperature: 36.6 (C) / 97.9 (F) Weight: 248 lbs 02/12/2017 Blood Pressure 1: 126/76 Code : 8480-6 BMI: 31.8 Code : 70623-2 Heart Rate 1 : 106 bpm Height: 6'2" SpO2: 91% Weight: 248 lbs 02/05/2017 Blood Pressure 1: 146/86 Code : 8480-6 BMI: 31.9 Code : 31075-8 Heart Rate 1 : 98 bpm Height: 6'2" SpO2: 87% Temperature: 36.7 (C) / 98.0 (F) Weight: 248 lbs 8 oz 01/29/2017 Blood Pressure 1: 132/84 Code : 8480-6 BMI: 31.8 Code : 23937-3 Heart Rate 1 : 83 bpm Height: 6'2" SpO2: 97% Weight: 248 lbs 10/13/2016 Blood Pressure 1: 128/72 Code : 8480-6 Heart Rate 1: 86 bpm SpO2: 94% 10/09/2016 Blood Pressure 1: 128/68 Code : 8480-6 Heart Rate 1: 136 bpm SpO2: 94% Temperature: 36.8 (C) / 98.2 (F) 10/06/2016 Blood Pressure 1: 140/80 Code : 8480-6 BMI: 32.1 Code : 54001-7 Heart Rate 1 : 94 bpm Height: 6'2" SpO2: 95% Weight: 250 lbs 07/18/2016 Blood Pressure 1: 128/86 Code : 8480-6 BMI: 32.1 Code : 85706-9 Heart Rate 1 : 89 bpm Height: 6'2" SpO2: 96% Weight: 250 lbs 06/22/2016 Blood Pressure 1: 118/70 Code : 8480-6 BMI: 32.1 Code : 82042-4 Heart Rate 1 : 70 bpm Height: 6'2" SpO2: 97% Weight: 250 lbs 05/23/2016 Blood Pressure 1: 128/80 Code : 8480-6 BMI: 32.1 Code : 24648-4 Heart Rate 1 : 76 bpm Height: 6'2" SpO2: 98% Weight: 250 lbs 05/15/2016 Blood Pressure 1: 110/90 Code : 8480-6 BMI: 31.3 Code : 61002-0 Heart Rate 1 : 111 bpm Height: 6'2" SpO2: 97% Temperature: 36.6 (C) / 97.8 (F) Weight: 244 lbs 01/20/2016 Blood Pressure 1: 128/76 Code : 8480-6 BMI: 33.0 Code : 50104-3 Heart Rate 1 : 103 bpm Height: 6'2" SpO2: 95% Weight: 257 lbs Functional Status No Functional Status data History of Present Illness Symptom Name Status Result Effective Date Notes Location in both ears 03/07/2019 None Quality ringing 03/07 None Onset of Symptom 1 days ago 03/07/2019 None Frequency of Episodes hourly 03/07/2019 None Frequency of Episodes increasing 03/07/2019 None Pertinent Findings Denies cough 03/07/2019 None Pertinent Findings Denies fever 03/07/2019 None Pertinent Findings Denies hearing change 03/07/2019 None Pertinent Findings Denies dyspnea 02/27/2019 None Pertinent Findings Denies dizziness 02/27/2019 None Pertinent Findings Denies edema 02/27/2019 None Pertinent Findings decreased energy 02/27/2019 None Quality primary hypertension 02/27/2019 None Onset and Resolution ongoing 02/27/2019 None Onset of Symptom Denies during adulthood 02/27/2019 None Alleviating Factors medication 02/27/2019 None Quality intermittent 02/17/2019 None Onset and Resolution sudden in onset 02/17/2019 None Onset of Symptom 1 weeks ago 02/17/2019 None Pertinent Findings dizziness 02/17/2019 None Pertinent Findings Denies syncope 02/17/2019 None Pertinent Findings Denies dyspnea 02/17/2019 None _ cardiac disease 09/2019 None Onset of Symptom 2 weeks ago 01/13/2019 None Pertinent Findings Denies pain 01/13/2019 None Quality acute illness 01/13/2019 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 stent placed by Dr Brennan Severity moderate 09/2019 None Significant Medical Conditions acute illness 01/13/2019 None Mechanism of injury unknown 01/13/2019 None Alleviating Factors activity 01/13/2019 stent Location diffusely None Quality aching 2018 None [...] Directive data Encounters Encounter Performer Location Codes ([id number]) 95618 EST. PATIENT, LEVEL III Diagnosis: Essential (primary) hypertension[ICD10: I10] Marcela Ha MD, [facility] CPT-4: 93610 03/07/2019 ([id number]) 85345 EST. PATIENT, LEVEL III Diagnosis: Hypotension due to drugs[ICD10: I95.2] Marcela Ha MD, [facility] CPT-4: 47473 02/27/2019 ([id number]) 09813 EST. PATIENT, LEVEL III Diagnosis: Hypotension due to drugs[ICD10: I95.2] Diagnosis: Other fatigue[ICD10: R53.83] Marcela Ha MD, [facility] CPT-4: 32882 02/17/2019 ([id number]) 44908 EST. 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 PATIENT, LEVEL IV Diagnosis: Type 2 diabetes mellitus with hyperglycemia[ICD10: E11.65] Diagnosis: Epigastric pain[ICD10: R10.13] Diagnosis: Pain in joints of right hand[ICD10: M25.541] Diagnosis: Shortness of breath[ICD10: R06.02] Marcela Ha MD, [facility] CPT-4: 35695 12/31/2018 54682 EST. PATIENT, LEVEL III Diagnosis: Other chest pain[ICD10: R07.89] Diagnosis: Cough[ICD10: R05] Madeline Ha MD, [facility] CPT-4: 25480 12/26/2018 ([id number]) 46895 EST. PATIENT, LEVEL III Diagnosis: Cough[ICD10: R05] Melida Ha MD, [facility] CPT-4: 66967 11/18/2018 ([id number]) 45984 EST. PATIENT, LEVEL III Diagnosis: Cough[ICD10: R05] Diagnosis: Pneumonia due to other Gram-negative bacteria[ICD10: J15.6] Marcela Ha MD, [facility] CPT-4: 43187 11/12/2018 ([id number]) 20770 EST. PATIENT, LEVEL III Diagnosis: Pneumonia due to other Gram-negative bacteria[ICD10: J15.6] Diagnosis: Cough[ICD10: R05] Melida Ha MD, [facility] CPT-4: 58342 10/30/2018 ([id number]) 27898 EST. PATIENT, LEVEL II Diagnosis: Pain in joints of right hand[ICD10: M25.541] Diagnosis: Trigger finger, right middle finger[ICD10: M65.331] Marcela Ha MD, [facility] CPT-4: 31994 10/24/2018 ([id number]) 30370 EST. PATIENT, LEVEL IV Diagnosis: Essential (primary) hypertension[ICD10: I10] Diagnosis: Type 2 diabetes mellitus with foot ulcer[ICD10: E11.621] Melida Ha MD, [facility] CPT-4: 40577 10/23/2018 ([id number]) 41082 EST. PATIENT, LEVEL III Diagnosis: Cellulitis of right finger[ICD10: L03.011] Diagnosis: Type 2 diabetes mellitus with foot ulcer[ICD10: E11.621] Diagnosis: Pain in right hand[ICD10: M79.641] Melida Ha MD, [facility] CPT-4: 41789 10/21/2018 61887 EST. PATIENT, LEVEL III Diagnosis: Spontaneous ecchymoses[ICD10: R23.3] Diagnosis: Cellulitis of right lower limb[ICD10: L03.115] Diagnosis: Cellulitis of left lower limb[ICD10: L03.116] Madeline Ha MD, [facility] CPT-4: 05421 10/17/2018 ([id number]) 47352 EST. PATIENT, LEVEL III Diagnosis: Cough[ICD10: R05] Diagnosis: Acute bronchitis, unspecified[ICD10: J20.9] Melida Ha MD, [facility] CPT-4: 81752 10/14/2018 58087 EST. PATIENT, LEVEL III Diagnosis: Acute laryngopharyngitis[ICD10: J06.0] Diagnosis: Cough[ICD10: R05] Madeline Ha MD, [facility] CPT-4: 78716 09/30/2018 ([id number]) 47748 EST. PATIENT, LEVEL III Diagnosis: Acute recurrent maxillary sinusitis[ICD10: J01.01] Diagnosis: Cough[ICD10: R05] Diagnosis: Type 2 diabetes mellitus with hyperglycemia[ICD10: E11.65] Marcela Ha MD, [facility] CPT-4: 19547 09/09/2018 ([id number]) 18254 EST. PATIENT, LEVEL IV Diagnosis: Essential (primary) hypertension[ICD10: I10] Diagnosis: Mixed hyperlipidemia[ICD10: E78.2] Diagnosis: Bipolar disorder, current episode depressed, moderate[ICD10: F31.32] Diagnosis: Type 2 diabetes mellitus with other specified complication[ICD10: E11.69] Melida Ha MD, [facility] CPT-4: 32770 2017 ([id number]) 47551 EST. PATIENT, LEVEL III Diagnosis: Insomnia due to medical condition[ICD10: G47.01] Marcela Ha MD, [facility] CPT-4: 70997 07/16/2018 ([id number]) Miscellaneous no charge Diagnosis: Cough[ICD10: R05] Madeline Ha MD, [facility] CPT-4: 01215 07/01/2018 42685 EST. PATIENT, LEVEL III Diagnosis: Cough[ICD10: R05] Diagnosis: Acute laryngopharyngitis[ICD10: J06.0] Diagnosis: Other allergic rhinitis[ICD10: J30.89] Madeline Ha MD, [facility] CPT-4: 29413 06/28/2018 ([id number]) 88275 EST. PATIENT, LEVEL IV Diagnosis: Type 2 diabetes mellitus with hyperglycemia[ICD10: E11.65] Diagnosis: Essential (primary) hypertension[ICD10: I10] Melida Ha MD, [facility] CPT-4: 88439 06/18/2018 ([id number]) 29932 EST. PATIENT, LEVEL IV Diagnosis: Type 2 diabetes mellitus with hyperglycemia[ICD10: E11.65] Diagnosis: Essential (primary) hypertension[ICD10: I10] Diagnosis: Localized edema[ICD10: R60.0] Melida Ha MD, [facility] CPT- 4: 59728 06/04/2018 ([id number]) 88883 EST. PATIENT, LEVEL III Diagnosis: Type 2 diabetes mellitus with hyperglycemia[ICD10: E11.65] Diagnosis: Myalgia[ICD10: M79.1] Diagnosis: Pain in right hip[ICD10: M25.551] Diagnosis: Pain in left hip[ICD10: M25.552] Marcela Ha MD, [facility] CPT-4: 72342 05/13/2018 ([id number]) 92819 EST. PATIENT, LEVEL III Diagnosis: Myalgia[ICD10: M79.1] Diagnosis: Pain in right hip[ICD10: M25.551] Diagnosis: Pain in left hip[ICD10: M25.552] Marcela Ha MD, [facility] CPT-4: 49329 05/02/2018 ([id number]) 38403 EST. PATIENT, LEVEL IV Diagnosis: Essential (primary) hypertension[ICD10: I10] Diagnosis: Type 2 diabetes mellitus with hyperglycemia[ICD10: E11.65] Diagnosis: Major depressive disorder, single episode, moderate[ICD10: F32.1] Diagnosis: Myalgia[ICD10: M79.1] Marcela Ha MD, [facility] CPT-4: 81360 04/29/2018 ([id number]) 71236 EST. PATIENT, LEVEL IV Diagnosis: Type 2 diabetes mellitus with hyperglycemia[ICD10: E11.65] Diagnosis: Essential (primary) hypertension[ICD10: I10] Diagnosis: Major depressive disorder, single episode, moderate[ICD10: F32.1] Melida Ha MD, [facility] CPT-4: 37208 03/13/2018 ([id number]) 38014 EST. PATIENT, LEVEL III Diagnosis: Type 2 diabetes mellitus with hyperglycemia[ICD10: E11.65] Diagnosis: Bipolar disorder, current episode depressed, moderate[ICD10: F31.32] Diagnosis: Orthostatic hypotension[ICD10: I95.1] Marcela Ha MD, [facility] CPT-4: 76387 03/07/2018 ([id number]) 13148 EST. PATIENT, LEVEL IV Diagnosis: Type 2 diabetes mellitus with hyperglycemia[ICD10: E11.65] Diagnosis: Major depressive disorder, single episode, moderate[ICD10: F32.1] Diagnosis: Orthostatic hypotension[ICD10: I95.1] Diagnosis: Other fatigue[ICD10: R53.83] Marcela Ha MD, [facility] CPT-4: 37927 02/28/2018 29537 EST. PATIENT, LEVEL IV Diagnosis: Other fatigue[ICD10: R53.83] Diagnosis: Other malaise[ICD10: R53.81] Diagnosis: Gastro-esophageal reflux disease without esophagitis[ICD10: K21.9] Madeline Ha MD, [facility] CPT-4: 25542 02/13/2018 ([id number]) 56660 EST. PATIENT, LEVEL IV Diagnosis: Type 2 diabetes mellitus with foot ulcer[ICD10: E11.621] Diagnosis: Essential (primary) hypertension[ICD10: I10] Diagnosis: Gastro-esophageal reflux disease without esophagitis[ICD10: K21.9] Marcela Ha MD, [facility] CPT-4: 54635 01/29/2018 91851 EST. PATIENT, LEVEL III Diagnosis: Other malaise[ICD10: R53.81] Diagnosis: Other fatigue[ICD10: R53.83] Diagnosis: Pain in right shoulder[ICD10: M25.511] Diagnosis: Pain in left shoulder[ICD10: M25.512] Madeline Ha MD, [facility] CPT-4: 91989 08/27/2017 ([id number]) 83547 EST. PATIENT, LEVEL IV Diagnosis: Essential (primary) hypertension[ICD10: I10] Diagnosis: Type 2 diabetes mellitus with hyperglycemia[ICD10: E11.65] Diagnosis: VACCIN FOR INFLUENZA[ICD10: Z23] Melida Ha MD, [facility] CPT-4: 43322 08/16/2017 53575 EST. PATIENT, LEVEL III Diagnosis: Zoster without complications[ICD10: B02.9] Madeline Ha MD, [facility] CPT-4: 89671 07/26/2017 ([id number]) 99139 EST. PATIENT, LEVEL III Diagnosis: Cellulitis of right lower limb[ICD10: L03.115] Marcela Ha MD, [facility] CPT-4: 99512 07/03/2017 80304 EST. PATIENT, LEVEL II Diagnosis: Laceration without foreign body of left forearm, initial encounter[ ICD10: S51.812A] Marcela Ha MD, [facility] CPT-4: 03172 06/29/2017 ([id number]) 33899 EST. PATIENT, LEVEL III Diagnosis: Cellulitis of right lower limb[ICD10: L03.115] Diagnosis: Type 2 diabetes mellitus with foot ulcer[ICD10: E11.621] Marcela Ha MD [facility] CPT-4: 07365 06/18/2017 ([id number]) 05120 EST. PATIENT, LEVEL IV Diagnosis: Cellulitis of right lower limb[ICD10: L03.115] Diagnosis: Acute laryngopharyngitis[ICD10: J06.0] Diagnosis: Gastro-esophageal reflux disease without esophagitis[ICD10: K21.9] Marcela Ha MD [facility] CPT-4: 10726 06/07/2017 ([id number]) 75386 EST. PATIENT, LEVEL III Diagnosis: Type 2 diabetes mellitus with hyperglycemia[ICD10: E11.65] Diagnosis: Insect bite (nonvenomous) of abdominal wall, initial encounter[ICD10 : S30.861A] Marcela Ha MD [facility] CPT-4: 52104 05/17/2017 ([id number]) 03289 EST. PATIENT, LEVEL III Diagnosis: Allergic contact dermatitis due to plants, except food[ICD10: L23.7] Melida Ha MD [facility] CPT-4: 86998 05/04/2017 ([id number]) 19505 EST. PATIENT, LEVEL III Diagnosis: Essential (primary) hypertension[ICD10: I10] Marcela Ha MD [facility] CPT-4: 76360 03/15/2017 ([id number]) 27135 EST. PATIENT, LEVEL III Diagnosis: Cough[ICD10: R05] Diagnosis: Essential (primary) hypertension[ICD10: I10] Marcela Ha MD [facility] CPT-4: 89376 03/01/2017 ([id number]) 67625 EST. PATIENT, LEVEL III Diagnosis: Cough[ICD10: R05] Diagnosis: Nasal congestion[ICD10: R09.81] Diagnosis: Acute recurrent maxillary sinusitis[ICD10: J01.01] Marcela Ha MD [facility] CPT-4: 48419 02/16/2017 ([id number]) 12111 EST. PATIENT, LEVEL III Diagnosis: Type 2 diabetes mellitus with hyperglycemia[ICD10: E11.65] Marcela Ha MD [facility] CPT-4: 13414 02/12/2017 ([id number]) 36703 EST. PATIENT, LEVEL IV Diagnosis: Type 2 diabetes mellitus with hyperglycemia[ICD10: E11.65] Diagnosis: Muscle weakness (generalized)[ICD10: M62.81] Diagnosis: Disorientation, unspecified[ICD10: R41.0] Marcela Ha MD, [facility] CPT-4: 35149 02/05/2017 ([id number]) Patient admitted to the hospital from clinic (NO CHARGE) Diagnosis: Type 2 diabetes mellitus with hyperglycemia[ICD10: E11.65] Diagnosis: Disorientation, unspecified[ICD10: R41.0] Diagnosis: Muscle weakness (generalized)[ICD10: M62.81] Marcela Ha MD, [facility] CPT-4: 49830O 01/29/2017 ([id number]) Miscellaneous no charge Diagnosis: Cellulitis of right lower limb[ICD10: L03.115] Marcela Ha MD, [facility] CPT-4: 17907 10/13/2016 ([id number]) Miscellaneous no charge Diagnosis: Type 2 diabetes mellitus with foot ulcer[ICD10: E11.621] Diagnosis: Pain in right foot[ICD10: M79.671] Marcela Ha MD, [facility] CPT-4: 39910 10/09/2016 57018 EST. PATIENT, LEVEL II Diagnosis: Cellulitis of right lower limb[ICD10: L03.115] Marcela Ha MD, [facility] CPT-4: 39146 10/06/2016 ([id number]) 94497 EST. PATIENT, LEVEL IV Diagnosis: Low back pain[ICD10: M54.5] Diagnosis: Other deformities of toe(s) (acquired), left foot[ICD10: M20.5X2] Diagnosis: Type 2 diabetes mellitus with foot ulcer[ICD10: E11.621] [facility] CPT-4: 42635 07/18/2016 ([id number]) 78517 EST. PATIENT, LEVEL III Diagnosis: Type 2 diabetes mellitus with hyperglycemia[ICD10: E11.65] Marcela Ha MD, [facility] CPT-4: 96637 06/22/2016 ([id number]) 72579 EST. PATIENT, LEVEL IV Diagnosis: Type 2 diabetes mellitus with hyperglycemia[ICD10: E11.65] Diagnosis: Mixed hyperlipidemia[ICD10: E78.2] Diagnosis: Other hemoglobinopathies[ICD10: D58.2] Marcela Ha MD, [facility] CPT-4: 64879 05/23/2016 ([id number]) 06102 EST. PATIENT, LEVEL IV Diagnosis: Type 2 diabetes mellitus with other specified complication[ICD10: E11.69] Diagnosis: Dehydration[ICD10: E86.0] [facility] CPT-4: 32186 05/15/2016 ([id number]) OFFICE VISIT, NEW - LEVEL 3 Diagnosis: Allergic contact dermatitis due to plants, except food[ICD10: L23.7] Madeline Ha MD, [facility] CPT-4: 11494 01/20/2016 Plan of Care Planned Activity Notes Codes Status Date Visit Plan: HTN -heart rate not well controlled -decrease valsartan -start metoprolol 25mg daily -return next week for blood pressure check -10 days for appt -discussed scheduling f/u appt with Dr Brennan as well - patient verbalized understanding of plan. 03/07/2019 Patient Education: Patient Medication Summary Completed 03/07/2019 Visit Plan: Hypotension -patient extremely symptomatic with coreg and blood pressures continue to be borderline low and he has not had any coreg today -due to risk of falls from dizziness, instructed patient to stop the coreg -monitor blood pressure and pulse and follow up in 2 weeks. Anxiety- patient is not tolerating increased dose of cymbalta- go back to 30mg daily -monitor symptoms and call with any concerns 02/27/2019 Appointment: Marcela Oshea WPtel: [address] [place] [address] (30 min) Complex 02/27/2019 Patient Education: Patient Medication Summary Completed 02/27/2019 Visit Plan: Orthostasis -decrease coreg -monitor symptoms and follow up in 10 days- sooner if needed Fatigue-check labs 02/17/2019 Appointment: Marcela Oshea WPtel: [address] [place] [address] (30 min) Complex 02/17/2019 Patient Education: Patient Medication Summary Completed 02/17/2019 Appointment: Marcela Osheal: [phone] (30 min) Complex 01/14/2019 Visit Plan: Hypertension - well controlled - continue with current medications, continue with no added salt diet. Pt has been encouraged to exercise daily. The pt has been advised to call the office if there are any acute concerns about change in blood pressure readings at home. CAD-hospital follow up -patient had cardiac cath with stent placement by Dr Brennan -chest pain has resolved 01/13/2019 Patient Education: Patient Medication Summary Completed 01/13/2019 Appointment: Marcela Oshea WPtel: [phone] (30 min) Complex 01/10/2019 Visit Plan: Epigastric pain -start protonix daily- monitor symptoms Chest pain -work up negative done last week with Madeline-recommend appt with Dr Brennan Joint pain-check inflammation makers DM-check Hgb a1c 12/31/2018 Appointment: Marcela Oshea WPtel: [phone] (15 min) Moderate 12/31/2018 Patient Education: Patient Medication Summary Completed 12/31/2018 Visit Plan: chest pain - EKG and cardiac enzymes OK - discussed with Dr. Ha - will treat for pneumonia - pt is to notify clinic if symptoms do not improve, if they worsen, or with any changes questions, or concerns. 12/26/2018 Appointment: Madeline Kennedy WPtel[facility] (30 min) Complex 12/26/2018 Patient Education: Patient Medication Summary Completed 12/26/2018 Referral: Andrew Cross Patient informed. Referral info faxed. Completed Visit Plan: cough - improved - continue with inhalers - continue with symbicort - rx for proair for PRN use when pt is feelign short of breath with activity. 11/18/2018 Appointment: Melida Ha WPtel: [facility] [place] (15 min) Moderate 11/18/2018 Patient Education: Patient [...] of plan. 11/12/2018 Appointment: Marcela Oshea WPtel: [address] [place], [place] [phone] [place] (30 min) Complex 11/12/2018 Patient Education: Patient Medication Summary Completed 11/12/2018 Patient Education: Symbicort - 18-64 - eCopay Completed 11/12/2018 Care Plan: Referral Order SNOMED-CT : 011929004 Pending 11/12/2018 Referral: Niko Mantilla Referral Completed 11/04/2018 Visit Plan: Pneumonia, cough - recent diagnosis of Moraxella Cattharalis - with sensitivity to levaquin - will give 2 wks of levaquin since he had improvement but no full resolution of symptoms. 10/30/2018 Appointment: Melida Ha WPtel: [address] [place], [place] [phone] 30 min appointments only in this slot [...] evaluation 10/24/2018 Appointment: [facility] [phone] [phone] (30 min) Complex 10/24/2018 Patient Education: Patient Medication Summary Completed 10/24/2018 Care Plan: Referral Order SNOMED-CT : 712723211 Pending 10/24/2018 Visit Plan: Hypotension - discussed [...] to become less controlled. 10/23/2018 Appointment: [phone] [facility] (15 min) Moderate 10/23/2018 Patient Education: Patient [...] Marcela Oshea WPtel: [facility] [address] (30 min) Complex 10/21/2018 Patient Education: [...] Appointment: Madeline Kennedy WPtel: [facility] [address] (15 min) Moderate 10/17/2018 Patient Education: [...] Marcela Oshea WPtel: [phone] (15 min) Moderate 10/14/2018 Patient Education: Patient Medication Summary Completed 10/14/2018 Care Plan: CHEST X-RAY 2VW FRONTAL&LATL LOINC : 84143-5 Pending 10/14/2018 Visit Plan: URI - Pt [...] allergy spray. 09/30/2018 Appointment: Madeline Kennedy WPtel: [address] [place] [address] (15 min) Moderate 09/30/2018 Patient Education: Patient [...] Hgb A1C 09/09/2018 Appointment: Marcela Oshea WPtel: [address] [place], [place] [phone] (15 min) Moderate 09/09/2018 Patient Education: Patient Medication Summary Completed 09/09/2018 Patient Education: Patient Medication Summary Completed 09/06/2018 Patient Education: Cholesterol Management Completed 09/06/2018 Care Plan: Comp Metabolic Pending 09/06/2018 Care Plan: Cbc With Differential Pending 09/06/2018 Care Plan: %Hba1C LOINC : 48059-4 Pending 09/06/2018 Care Plan: Tsh Pending 09/06/2018 Care Plan: Lipid Pending 09/06/2018 Appointment: Marcela Oshea WPtel: [address] [place], [place] [phone] (15 min) Moderate 08/26/2018 Appointment: [facility]she[facility]Ptel[facility] [phone] [phone] (15 min) Moderate 08/23/2018 Visit Plan: [...] clinic. 07/22/2018 Appointment: [phone] [facility] (15 min) Moderate 07/22/2018 Patient [...] insomnia. 07/16/2018 Appointment: Marcel[facility] Oshea WPtel[facility] [phone] [phone] (30 min) Complex 07/16/2018 Patient Education: Patient Medication Summary Completed 07/16/2018 Visit Plan: cough - improved - notify clinic if symptoms do not completely resolve, or with any questions or concerns. 07/01/2018 Appointment: Madeline Kennedy [facility]Ptel[facility] [phone] [facility] (15 min) Moderate 07/01/2018 Patient Education: [...] spray. 06/28/2018 Appointment: Madeline Kennedy [facility]Ptel[facility] [phone] [facility] (15 min) Moderate 06/28/2018 Patient Education: [...] home. 06/18/2018 Appointment: [facility] [phone] [facility] (15 min) Moderate 06/18/2018 Patient Education: [...] improves. 06/04/2018 Appointment: Melida Ha [facility] [phone] [phone] (15 min) Moderate 06/04/2018 Patient Education: [...] allow for greater blood glucose control. Joint pait-xooycikd-svsenpo- symptoms have improved -stop meloxicam due to upset stomach-call if symptoms return 05/13/2018 Appointment: Marcela Oshea WPtel: [address] [place], [place] [phone] (30 min) Complex 05/13/2018 Patient Education: Patient Medication Summary Completed 05/13/2018 Visit Plan: Bilateral hip fuey-llstcbie-gxszozk IM injection administered today for c/o continued myalgia/arthralgia. Patient to start taking Meloxicam 15mg PO daily. Advised to return to clinic if symptoms do not improve. 05/02/2018 Appointment: Marcela Oshea WPtel: [facility]5 [phone] (30 min) Complex 05/02/2018 Patient Education: [...] readings at home. Diabetes Mellitus -check labs Stgqyjhz-lpccgcj-eavb bite-rx for doxycycline-follow up in 2 weeks 04/29/2018 Appointment: Marcela Oshea WPtel: [address] [place], [place] [phone] (15 min) Moderate 04/29/2018 Patient Education: Patient Medication Summary Completed 04/29/2018 Appointment: Melida Ha WPtel: [address] [place], [place] [phone] (15 min) Moderate 04/15/2018 Appointment: Marcela Oshea WPtel: [address] [place], [place] [phone] (30 min) Complex 03/21/2018 Visit Plan: Hypertension [...] cymbalta 03/13/2018 Appointment: Melida Ha WPtel: [phone] [phone] (30 min) Complex 03/13/2018 Patient Education: Patient Medication Summary Completed 03/13/2018 Visit Plan: DM-continue same medications-monitor blood sugars routinely as directed -rx for new glucometer and test strips provided Bipolar-currently depressed-patient start on vraylar-follow up in 2 weeks, sooner if needed. Patient and verbalied understanding of plan. Hypotension- stay off losartan 03/07/2018 Appointment: Marcel[facility] Oshea WPtel[facility] [phone] [phone] [place] (30 min) Complex 03/07/2018 Patient Education: Patient Medication Summary Completed 03/07/2018 Appointment: Melida Ha [facility]Ptel[facility] [phone] [facility] (15 min) Moderate 03/04/2018 Visit [...] patient. 02/28/2018 Appointment: Marcel[facility] Oshea WPtel[facility] [phone] [phone] (30 min) Complex 02/28/2018 Patient Education: [...] improving. 02/13/2018 Appointment: Madeline Kennedy [facility]el: [phone] [facility] [id number] ([place] min[place] Moderate 02/13/2018 Patient Education: Patient Medication Summary Completed 02/13/2018 Referral: Sun Glynn Patient informed. Referral info faxed. Completed Visit Plan: DM-weight loss-not checking blood sugars- patient sent for labs today HTN-low bnxsq-zqcxekj-tzxhh labs Callus of foot and fissue of [...] improving. 01/29/2018 Appointment: [phone] [phone] (30 min) Complex 01/29/2018 Patient Education: Patient Medication Summary Completed 01/29/2018 Care Plan: Comp Metabolic Cancelled 01/29/2018 Care Plan: Cbc With Differential Cancelled 01/29/2018 Care Plan: %Hba1C LOINC : 38852-7 Cancelled 01/29/2018 Care Plan: Referral Order SNOMED-CT : [id number] Cancelled 01/29/2018 Visit Plan: Fatigue, malaise, joint [...] concerns. 08/27/2017 Appointment: [phone] (15 min) Moderate 08/27/2017 Patient Education: [...] - 08/16/2017 [phone] ([facility] min) Complex 08/16/2017 Patient Education: Patient Medication Summary Completed 08/16/2017 Patient Education: Obesity Completed 08/16/2017 Appointment: [phone] ([place] min) Complex 08/07/2017 Visit Plan: [...] Appointment: Madeline Kennedy WPtel: [facility]7 [facility] (15 min) Moderate 07/26/2017 Patient Education: Patient Medication Summary Completed 07/26/2017 Visit Plan: Cellulitis right foot-cultured today in the office-home health to reapply wound vac--appt with wound care on to evaluate for debridement- 07/03/2017 Appointment: Marcela Oshea WPtel: [phone] (30 min) Complex 07/03/2017 Patient Education: Patient Medication Summary Completed 07/03/2017 Visit Plan: Abrasion left arm - Pt was instructed to keep the wound clean, wash with antibacterial soap, use triple antibiotic ointment, call if redness, pustular drainage, or any other acute concerns. 06/29/2017 Appointment: Marcela Oshea WPtel: [phone] (15 min) Moderate 06/29/2017 Patient Education: [...] Marcela Oshea WPtel: [phone] (15 min) Moderate 06/18/2017 Patient Education: [...] Marcela Oshea WPtel: [phone] (10 min) Simple 06/07/2017 Patient Education: Patient [...] Marcela Oshea WPtel: [phone] (30 min) Complex 05/17/2017 Patient Education: Patient [...] if you want blue goo called into [facility]. 05/04/2017 Appointment: Marcela Oshea WPtel: [phone] [place] (30 min) Complex 05/04/2017 Patient Education: [...] home. Cough-resolved 03/15/2017 Appointment: Marcela Oshea WPtel: [phone] (15 min) Moderate 03/15/2017 Patient Education: Patient Medication Summary Completed 03/15/2017 Appointment: Marcela Oshea WPtel: [phone] (30 min) Complex 03/12/2017 Visit Plan: [...] Marcela Oshea WPtel: [phone] (15 min) Moderate 02/16/2017 Patient Education: [...] Marcela Oshea WPtel: [phone] (30 min) Complex 02/12/2017 Patient Education: Patient Medication Summary Completed 02/12/2017 Appointment: Marcela Oshea WPtel: [phone] (30 min) Complex 02/06/2017 Visit Plan: [...] Appointment: Marcela Oshea WPtel: [phone] (30 min) Complex 02/05/2017 Patient Education: Patient Medication Summary Completed 02/05/2017 Appointment: Marcela Oshea WPtel: [phone] (30 min) Complex 01/30/2017 Visit Plan: Acute confusion-uncontrolled diabetes- chronically noncompliant with treatment and stopped his insulin several months ago-r/o stroke vs DKA-Dr Ha in to evaluate patient-plan to admit for further work up and treatment-patient's called and she transported him to the hospital 01/29/2017 Appointment: Marcela Oshea WPtel: [phone] (30 min) Complex 01/29/2017 Patient Education: Patient Medication Summary Completed 01/29/2017 Patient Education: Obesity Completed 01/29/2017 Visit Plan: Right foot pain-MRI shows foreign body-appt with Dr Grewal for evaluation on Sunday. 10/13/2016 Appointment: Marcela Oshea WPtel: [phone] [place] (15 min) Moderate 10/13/2016 Patient Education: Patient Medication Summary Completed 10/13/2016 Appointment: Marcela Oshea WPtel: [address] [place], [place] [phone] [place] (30 min) Complex 10/12/2016 Visit Plan: Right foot tnbc-nkncebug-oytsx washer dropped on foot-xray negative but pain continues to increase-recommend MRI of foot for further evaluation-refer to wound care for lesions on right foot, patient has diabetes and history of osteomyelitis-culture obtained today-continue oral abx- follow up in the office on , sooner if needed 10/09/2016 Visit Plan: Right foot rcdx-pkdkbnkx-vwxeh washer dropped on foot-xray negative but pain continues to increase-recommend MRI of foot for further evaluation-refer to wound care for lesions on right foot, patient has diabetes and history of osteomyelitis-culture obtained today-continue oral abx- follow up in the office on , sooner if needed 10/09/2016 Visit Plan: Right foot jsbv-irilsuos-vvomq washer dropped on foot-xray negative but pain continues to increase-recommend MRI of foot for further evaluation-refer to wound care for lesions on right foot, patient has diabetes and history of osteomyelitis-culture obtained today-continue oral abx- follow up in the office on , sooner if needed 10/09/2016 Appointment: Marcela Oshea WPtel: [address] [place], [place] [phone] [place] (30 min) Complex 10/09/2016 Patient Education: Patient Medication Summary Completed 10/09/2016 Visit Plan: Cellulitis - continue with oral antibiotics as previously directed, return to clinic as previously directed, call for acute change in symptoms, worsening redness, warmth, discharge. 10/06/2016 Appointment: Marcela Oshea WPtel: [address] [place], [place] [phone] [place] (10 min) Simple 10/06/2016 Patient Education: Patient Medication Summary Completed 10/06/2016 Appointment: Marcela Oshea WPtel: [address] [place], [place] [phone] [place] (30 min) Complex 08/24/2016 Referral: Sun Glynn Referral Completed 07/21/2016 Visit Plan: Low back pain- history of spinal fusion- patient for xray lumbar spine-RX sent to [facility] and instructed on use-topical voltaren samples provided and instructed on use. Ok to use tylenol as needed as well. The patient is to call the office if the pain is worsening or does not improve. Pressure ulcer left 4th toe-refer to Dr Glynn for evaluation 07/18/2016 Appointment: Marcela Oshea WPtel: [phone] [phone] [place] (30 min) Complex 07/18/2016 Patient Education: Patient Medication Summary Completed 07/18/2016 Patient Education: Obesity Completed 07/18/2016 Care Plan: Referral Order SNOMED-CT : [id number] Cancelled 07/18/2016 Visit Plan: Diabetes Mellitus - [...] Appointment: Marcela Oshea WPtel: [phone] [place] (30 min) Complex 06/22/2016 Patient Education: [...] today 05/23/2016 Appointment: Marcela [facility]she[facility]Ptel[facility] [phone] [phone] (30 min) Complex 05/23/2016 Patient Education: [...] of plan. 05/15/2016 Appointment: Marcela Oshea WPtel: [phone] [phone] (15 min) Moderate 05/15/2016 Patient Education: [...] change in blood pressure readings at home. HOLD COREG FOLLOW UP IN 2 WEEKS . Hypotension -patient extremely symptomatic with coreg and blood pressures continue to be borderline low and he has not had any coreg today -due to risk of falls from dizziness, instructed patient to stop the coreg -monitor blood pressure and pulse and follow up in 2 weeks. Anxiety- patient is not tolerating increased dose of cymbalta- go back to 30mg daily -monitor symptoms and call with any concerns . Right hand-joint pain and swelling -negative [...] glucose control. Elevated Hgb-check CBC today . Hypertension - well controlled - continue with current medications, continue with no added salt diet. Pt has been encouraged to exercise daily. The pt has been advised to call the office if there are any acute concerns about change in blood pressure readings at home. CAD-hospital follow up -patient had cardiac cath with stent placement by Dr Brennan -chest pain has resolved sputum culture chest xray levaquin 500mg daily [...] voltaren gel ulcer left 4th toe-refer to animal health technician . Low back pain- history of spinal fusion-patient for xray lumbar spine-RX sent to [facility] and instructed on use-topical voltaren samples [...] for fracture from injury . Right foot wxvm-psrdqail-sxtju washer dropped on foot-xray negative but pain [...] for fracture from injury . Right foot wkqv-ktlyvtbq-skkeq washer dropped on foot-xray negative but pain [...] for fracture from injury . Right foot nbtr-fmthigrt-hmhlw washer dropped on foot-xray negative but pain [...] Joint pain-check inflammation makers DM-check Hgb a1c CHECK UA TODAY LABS HOLD A.M. DOSE OF COREG AND MONITOR SYMPTOMS . Orthostasis -decrease coreg -monitor symptoms and follow up in 10 days- sooner if needed Fatigue-check labs . Bilateral hip ddwo-ypfmbczy-ptpqidt IM injection administered today for c/o continued myalgia/arthralgia. Patient to start taking Meloxicam 15mg PO daily. Advised to return to clinic if symptoms do not improve. . DM-weight loss-not checking blood sugars-patient sent for labs today HTN-low jmjgx-heqyxxe-mhxgn labs Callus of foot and fissue of [...] readings are starting to become less controlled. Pkkupywjf-nupfecev-gebcrbvm to monitor Generalized weakness-refer for PT-patient refuses [...] in blood pressure readings at home. 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 HTN -heart rate not well controlled -decrease valsartan -start metoprolol 25mg daily -return next week for blood pressure check -10 days for appt -discussed scheduling f/u appt with Dr Brennan as well -patient verbalized understanding of plan. STAY OFF LOSARTAN [...] allow for greater blood glucose control. Joint uryx-bwakelii-zbkjynp-symptoms have improved -stop meloxicam due to upset [...] readings at home. Diabetes Mellitus -check labs Vggabetv-cvrisad-wilp bite-rx for doxycycline-follow up in 2 weeks [...]
--- NOTE | 2019-03-10 09:32 | Diagnostic Imaging Report ---
PROCEDURE: CT head wo r/o stroke. TECHNIQUE: Multiple contiguous axial images were obtained through the brain without the use of intravenous contrast. Auto Exposure Controls were utilized during the CT exam to meet ALARA standards for radiation dose reduction. INDICATION: Headache and chest pain. Comparison is made with prior CT head from 01/29/2017. FINDINGS: The ventricles and sulci are within normal limits. No sulcal effacement, midline shift or hemorrhage is detected. Cisterns are patent. Visualized paranasal sinuses are clear. IMPRESSION: No acute intracranial process is detected. Results were discussed with Dr. López prior to this dictation. Dictated by: Dictated on workstation # [id number]
--- OUTSIDE RECORDS SUMMARY | 2019-03-10 09:36 | XMS REPORT | CCD ---
Author Author Madeline Kennedy MD, [facility] Address [address] [place] [address] Phone Care Team Providers Care Bonding Supervisor Name Role Phone PP Unavailable CCM Unavailable Summary Purpose Interface Exchange Insurance Providers Payer name Policy type / Coverage type Covered democrat ID Effective Begin Date Effective End Date [employer] Commercial Insurance [id number] Unknown Family history Father Diagnosis Age At Onset Hyperlipidemia Unknown Heart Attack Unknown Mother Diagnosis Age At Onset Hypertension Unknown Social History Social History Element Codes Description Effective Dates Marital status Unknown Mignon 01/20/2016 Number of children Unknown 4 01/20/2016 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/[address]: 991810367 Never smoker 01/20/[address]: 035443576 Never drinks alcohol 01/20/2016 Allergies, Adverse Reactions, [...] Active 08/27/2017 Unknown 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 [...] R53.83 08/27/2017 Active 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 [...] Instructions Cymbalta 30 mg capsule,delayed release RxNorm: 249808 1 Capsule(s) PO daily 02/27/2019 No Stop Date Active Lyrica 50 mg capsule RxNorm: 017041 Capsule(s) PO daily 201806/25/2019 Active Cymbalta 60 mg capsule,delayed release RxNorm: 223896 1 Capsule(s) PO QAM 02/19/2019 02/26/2019 Inactive will call for refill- dose change Coreg 6.25 mg tablet RxNorm: 372717 1 Tablet(s) daily 201802/26/2019 Inactive clonazepam 1 mg tablet RxNorm: 119132 2 Tablet(s) PO HS 201806/14/2019 Active Tresiba FlexTouch U-200 insulin 200 unit/mL (3 mL) subcutaneous pen RxNorm: 0465828 50 Unit(s) SQ daily 01/08/2019 05/07/2019 Active please give him 30 day supply Protonix 40 mg tablet,delayed release RxNorm: 623576 1 Tablet(s) PO daily 12/31/2018 01/29/2019 Inactive Tresiba FlexTouch U-200 insulin 200 unit/mL (3 mL) subcutaneous pen RxNorm: 4558782 50 Unit(s) SQ daily 12/31/2018 01/07/2019 Inactive please give him 30 day supply Augmentin 500 mg-125 mg tablet RxNorm: 673213 1 Tablet(s) PO TID 12/26/2018 01/04/2019 Inactive Augmentin 500 mg-125 mg tablet RxNorm: 950675 1 Tablet(s) PO TID 12/26/2018 12/25/2018 Inactive ProAir HFA 90 mcg/actuation aerosol inhaler RxNorm: 0201420 2 Puff(s) INH QID as needed 11/18/2018 No Stop Date Active Lyrica 50 mg capsule RxNorm: 560017 Capsule(s) PO daily 201802/07/2019 Inactive Cymbalta 30 mg capsule,delayed release RxNorm: 656410 1 Capsule(s) PO QAM 11/13/2018 02/18/2019 Inactive Lyrica 50 mg capsule RxNorm: 634365 Capsule(s) PO daily 201811/12/2018 Inactive Symbicort 160 mcg-4.5 mcg/actuation HFA aerosol inhaler RxNorm: 4374554 2 Puff(s) INH BID 11/12/2018 12/11/2018 Inactive albuterol sulfate 2.5 mg/3 mL (0.083 %) solution for nebulization RxNorm: 818257 3 Milliliter(s) INH UD 11/07/2018 No Stop Date Active azithromycin 500 mg tablet RxNorm: 619846 500mg on day 1 then 250 mg daily x 4 more day Tablet(s) PO 11/07/20182018 Inactive 500mg on day 1 and then 250mg daily 2-4 cefdinir 300 mg capsule RxNorm: 298567 1 Capsule(s) PO BID 01/201911/06/2018 Inactive azithromycin 500 mg tablet RxNorm: 254349 500mg on day 1 then 250 mg daily x 4 more day Tablet(s) PO 11/07/20182018 Inactive 500mg on day 1 and then 250mg daily 2-4 cefdinir 300 mg capsule RxNorm: 813235 1 Capsule(s) PO BID 01/201911/13/2018 Inactive Levaquin 500 mg tablet RxNorm: 774216 1 Tablet(s) PO daily TAKE ONE TABLET BY MOUTH DAILY UNTIL GONE 10/31/20182018 Inactive Levaquin 500 mg tablet RxNorm: 851053 1 Tablet(s) PO daily 11/12/2018 Inactive valsartan 80 mg tablet RxNorm: 490795 1/2 Tablet(s) PO daily 04/20/2019 Active doxycycline hyclate 100 mg tablet RxNorm: 2511122 1 Tablet(s) PO BID 10/21/2018 10/27/2018 Inactive ketorolac 60 mg/2 mL intramuscular solution RxNorm: 3732417 Milliliter(s) IM 10/21/2018 10/21/2018 Inactive Levaquin 500 mg tablet RxNorm: 636866 1 Tablet(s) PO daily 10/31/2018 Inactive Tessalon Perles 100 mg capsule RxNorm: 113116 1-2 Capsule(s) PO TID PRN 10/14/2018 No Stop Date Active albuterol sulfate 2.5 mg/3 mL (0.083 %) solution for nebulization RxNorm: 740777 3 Milliliter(s) INH UD 10/14/201812/2018 Inactive Levaquin 500 mg tablet RxNorm: 022516 1 Tablet(s) PO daily 08/201810/16/2018 Inactive albuterol sulfate 2.5 mg/3 mL (0.083 %) solution for nebulization RxNorm: 517309 3 Milliliter(s) INH UD 09/30/201807/2018 Inactive Kenalog 40 mg/mL suspension for injection RxNorm: 3726823 1.5 Milliliter(s) Inj 09/30/2018 09/30/2018 Inactive Coreg 6.25 mg tablet RxNorm: 290970 TAKE ONE TABLET BY MOUTH TWICE A DAY 09/30/2018 02/18/2019 Inactive Keflex 500 mg capsule RxNorm: 033272 1 Capsule(s) PO TID 201710/03/2018 Inactive prednisone 20 mg tablet RxNorm: 716074 2 Tablet(s) PO daily 09/29/2018 Inactive Kenalog 40 mg/mL suspension for injection RxNorm: 9336606 Milliliter(s) Inj 09/11/2018 09/11/2018 Inactive Zyrtec 10 mg tablet RxNorm: 7798692 1 Tablet(s) PO daily 09/0910/08/2018 Inactive Keflex 500 mg capsule RxNorm: 936574 1 Capsule(s) PO TID 201709/15/2018 Inactive Tresiba FlexTouch U-200 insulin 200 unit/mL (3 mL) subcutaneous pen RxNorm: 5661279 50 Unit(s) SQ daily 08/30/2018 08/29/2018 Inactive please give him 30 day supply Tresiba FlexTouch U-200 insulin 200 unit/mL (3 mL) subcutaneous pen RxNorm: 4012782 50 Unit(s) SQ daily 08/30/2018 09/28/2018 Inactive please give him 30 day supply Novolog Flexpen U-100 Insulin aspart 100 unit/mL subcutaneous RxNorm: 4575939 8 Unit(s) SQ AC 08/13/2018 No Stop Date Active Novolog Flexpen U-100 Insulin aspart 100 unit/mL subcutaneous RxNorm: 3506855 8 Unit(s) SQ AC 07/22/20182017 Inactive this is an update on his medication Novolog Flexpen U-100 Insulin aspart 100 unit/mL subcutaneous RxNorm: 0454252 12 Unit(s) SQ AC 07/05/20182017 Inactive this is an update on his medication Toujeo SoloStar U-300 Insulin 300 unit/mL (1.5 mL) subcutaneous pen RxNorm: 7991683 INJECT 50 UNITS UNDER THE SKIN DAILY 07/01/2018 08/29/2018 Inactive Mucinex 600 mg tablet, extended release RxNorm: 568882 1 Tablet(s) PO BID 06/28/2018 07/04/2018 Inactive Zofran 4 mg tablet RxNorm: 976996 1 Tablet(s) PO TID as needed nausea 06/28/2018 07/02/2018 Inactive Kenalog 40 mg/mL suspension for injection RxNorm: 9947663 Milliliter(s) Inj 06/28/2018 06/28/2018 Inactive Flonase Allergy Relief 50 mcg/actuation nasal spray, suspension RxNorm: 9258071 1 [place] NASAL BID 06/28/20182017 Inactive Lyrica 50 mg capsule RxNorm: 187098 Capsule(s) PO daily 201707/06/2018 Inactive Novolog Flexpen U-100 Insulin aspart 100 unit/mL subcutaneous RxNorm: 4545994 10 Unit(s) SQ AC 06/18/20182017 Inactive this is an update on his medication Lasix 20 mg tablet RxNorm: 466251 1 Tablet(s) PO BIW 201707/02/2018 Inactive atorvastatin 80 mg tablet RxNorm: 395014 1 Tablet(s) PO QHS 04/201812/06/2018 Inactive clonazepam 1 mg tablet RxNorm: 324832 2 Tablet(s) PO HS as needed 06/10/2018 06/08/2018 Inactive clonazepam 1 mg tablet RxNorm: 804063 2 Tablet(s) PO HS 201702/17/2019 Inactive Lyrica 50 mg capsule RxNorm: 123502 Capsule(s) PO daily 201707/08/2018 Inactive Lasix 20 mg tablet RxNorm: 246510 1 Tablet(s) PO TIW 201706/11/2018 Inactive Toujeo SoloStar U-300 Insulin 300 unit/mL (1.5 mL) subcutaneous pen RxNorm: 1050900 50 Unit(s) SQ daily 05/07/2018 06/30/2018 Inactive meloxicam 15 mg tablet RxNorm: 045126 15 Milligram(s) PO daily 05/02/2018 05/12/2018 Inactive ketorolac 30 mg/mL injection solution RxNorm: 684356 2 Milliliter(s) Inj 05/02/2018 05/02/2018 Inactive Toujeo SoloStar U-300 Insulin 300 unit/mL (1.5 mL) subcutaneous pen RxNorm: 9473410 45 Unit(s) daily 04/29/2018 Inactive clonazepam 1 mg tablet RxNorm: 920652 1 Tablet(s) PO Q8 as needed 04/29/2018 06/09/2018 Inactive doxycycline hyclate 100 mg tablet RxNorm: 5442046 1 Tablet(s) PO BID 04/29/2018 05/12/2018 Inactive Cymbalta 30 mg capsule,delayed release RxNorm: 182275 1 Capsule(s) PO QAM 03/13/2018 10/08/2018 Inactive Lexapro 10 mg tablet RxNorm: 277145 1 Tablet(s) PO QPM 201703/03/2018 Inactive Toujeo SoloStar U-300 Insulin 300 unit/mL (1.5 mL) subcutaneous pen RxNorm: 3707083 20 Unit(s) daily 02/28/2018 Inactive Protonix 40 mg tablet,delayed release RxNorm: 523100 1 Tablet(s) PO daily 01/29/2018 06/09/2018 Inactive clonazepam 1 mg tablet RxNorm: 864709 1 Tablet(s) PO Q8 as needed 12/12/2017 03/10/2018 Inactive Tamiflu 75 mg capsule RxNorm: 583677 1 Capsule(s) PO BID 201712/03/2017 Inactive doxycycline hyclate 100 mg capsule RxNorm: 8590696 1 Capsule(s) PO BID 09/07/2017 09/20/2017 Inactive doxycycline hyclate 100 mg capsule RxNorm: 0572312 1 Capsule(s) PO BID 08/27/2017 09/06/2017 Inactive prednisone 20 mg tablet RxNorm: 597886 2 Tablet(s) PO daily 08/31/2017 Inactive clopidogrel 75 mg tablet RxNorm: 588958 1 Tablet(s) PO daily 06/09/2018 Inactive atorvastatin 40 mg tablet RxNorm: 873408 1 Tablet(s) PO QHS 02/27/2018 Inactive losartan 25 mg tablet RxNorm: 242937 TAKE ONE TABLET BY MOUTH DAILY 08/22/2017 06/09/2018 Inactive Toujeo SoloStar 300 unit/mL (1.5 mL) subcutaneous insulin pen RxNorm: 2141186 45 Unit(s) daily 08/17/2017 08/20/2017 Inactive mupirocin 2 % topical ointment RxNorm: 344907 1 Application TOP TID to the lesions on chest 08/16/2017 08/25/2017 Inactive Toujeo SoloStar 300 unit/mL (1.5 mL) subcutaneous insulin pen RxNorm: 0886204 40 Unit(s) daily 08/16/2017 08/16/2017 Inactive valacyclovir 1 gram tablet RxNorm: 347659 1 Tablet(s) PO TID 08/01/2017 Inactive clonazepam 1 mg tablet RxNorm: 353817 1 Tablet(s) PO Q8 as needed 07/03/2017 09/30/2017 Inactive Levaquin 500 mg tablet RxNorm: 296424 1 Tablet(s) PO daily 06/25/2017 Inactive Levaquin 500 mg tablet RxNorm: 287018 1 Tablet(s) PO daily 06/21/2017 Inactive losartan 25 mg tablet RxNorm: 344892 1 Tablet(s) PO daily 201608/16/2017 Inactive nystatin 100,000 unit/mL oral suspension RxNorm: 120596 5 Milliliter(s) PO QID Swish et swallow 06/18/2017 06/17/2017 Inactive nystatin 100,000 unit/mL oral suspension RxNorm: 830866 5 Milliliter(s) PO QID Swish et swallow 06/18/2017 06/27/2017 Inactive Cipro 500 mg tablet RxNorm: 755706 1 Tablet(s) PO BID 201606/18/2017 Inactive Cipro 500 mg tablet RxNorm: 807198 1 Tablet(s) PO BID 201606/11/2017 Inactive Toujeo SoloStar 300 unit/mL (1.5 mL) subcutaneous insulin pen RxNorm: 1266766 INJECT 10 UNITS UNDER THE SKIN DAILY 06/12/2017 08/15/2017 Inactive Keflex 500 mg capsule RxNorm: 908443 1 Capsule(s) PO TID 201606/13/2017 Inactive doxycycline hyclate 100 mg capsule RxNorm: 3124991 1 Capsule(s) PO BID 05/17/2017 05/21/2017 Inactive doxycycline hyclate 100 mg capsule RxNorm: 6268882 1 Capsule(s) PO BID 05/11/2017 05/16/2017 Inactive losartan 25 mg tablet RxNorm: 676620 1 Tablet(s) PO daily 201606/17/2017 Inactive atorvastatin 40 mg tablet RxNorm: 925657 1 Tablet(s) PO daily 03/01/2017 08/23/2017 Inactive clopidogrel 75 mg tablet RxNorm: 065187 1 Tablet(s) PO daily 08/23/2017 Inactive Flonase Allergy Relief 50 mcg/actuation nasal spray, suspension RxNorm: 9845450 2 [place] NASAL daily 02/16/20172016 Inactive Augmentin 875 mg-125 mg tablet RxNorm: 866231 1 Tablet(s) PO BID 02/16/2017 02/22/2017 Inactive GET PROBIOTIC TO TAKE WHILE ON ABX Tamiflu 75 mg capsule RxNorm: 756087 1 Capsule(s) PO BID 201602/20/2017 Inactive ceftriaxone 500 mg solution for injection RxNorm: 2825945 1 Milliliter(s) Inj 02/16/2017 02/16/2017 Inactive Kenalog 40 mg/mL suspension for injection RxNorm: 4663230 1 Milliliter(s) Inj 02/16/2017 02/16/2017 Inactive Toujeo SoloStar 300 unit/mL (1.5 mL) subcutaneous insulin pen RxNorm: 6610294 25 Unit(s) SQ QAM 02/12/2017 06/10/2017 Inactive Toujeo SoloStar 300 unit/mL (1.5 mL) subcutaneous insulin pen RxNorm: 9899468 10 Unit(s) SQ QAM 02/05/2017 02/11/2017 Inactive lisinopril 10 mg tablet RxNorm: 154279 1 Tablet(s) PO daily 02/28/2017 Inactive atorvastatin 40 mg tablet RxNorm: 654796 1 Tablet(s) PO daily 02/01/2017 02/28/2017 Inactive doxycycline hyclate 100 mg capsule RxNorm: 2908812 1 Capsule(s) PO BID 02/01/2017 02/10/2017 Inactive clonazepam 1 mg tablet RxNorm: 543461 1 Tablet(s) PO Q8 as needed 10/09/2016 01/05/2017 Inactive ceftriaxone 1 gram solution for injection RxNorm: 4069617 Inj 10/06/2016 10/06/2016 Inactive cyclobenzaprine 10 mg tablet RxNorm: 389754 1/2-1 Tablet(s) PO TID PRN 07/18/2016 01/28/2017 Inactive clonazepam 1 mg tablet RxNorm: 705897 1 Tablet(s) PO Q8 as needed 05/31/2016 05/29/2016 Inactive clonazepam 1 mg tablet RxNorm: 656958 1 Tablet(s) PO Q8 as needed 05/31/2016 08/28/2016 Inactive Toujose SoloStar 300 unit/mL (1.5 mL) subcutaneous insulin pen RxNorm: 0011421 10 Unit(s) SQ daily 05/23/2016 01/28/2017 Inactive Crestor 10 mg tablet RxNorm: 686603 1 Tablet(s) PO QHS 201501/28/2017 Inactive Crestor 10 mg tablet RxNorm: 905493 1 Tablet(s) PO QHS 201505/18/2016 Inactive clonazepam 1 mg tablet RxNorm: 351935 1 Tablet(s) PO Q8 as needed 04/25/2016 05/30/2016 Inactive prednisone 20 mg tablet RxNorm: 687644 3 Tablet(s) PO daily 06/201602/10/2016 Inactive prednisone 20 mg tablet RxNorm: 403222 3 Tablet(s) PO daily 06/201605/14/2016 Inactive Kenalog 40 mg/mL suspension for injection RxNorm: 9600259 Milliliter(s) Inj 01/20/2016 01/20/2016 Inactive aspirin 81 mg tablet,delayed release RxNorm: 327637 1 Tablet(s) PO daily No Start Date Active Brilinta 90 mg tablet RxNorm: 5150492 1 Tablet(s) PO BID No Start Date Active acetaminophen 500 mg tablet RxNorm: 903767 1-2 Tablet(s) PO as needed No Start Date Active clopidogrel 75 mg tablet RxNorm: 403595 1 Tablet(s) PO daily No Start Date 02/28/2017 Inactive Novolog Flexpen U-100 Insulin aspart 100 unit/mL subcutaneous RxNorm: 0442179 5 units with breakfast lunch and 10 supper Unit(s) SQ No Start Date 06/17/2018 Inactive clonazepam 1 mg tablet RxNorm: 255127 1 Tablet(s) PO QHS No Start Date 04/24/2016 Inactive Coreg 6.25 mg tablet RxNorm: 451329 1 Tablet(s) PO BID No Start Date 09/29/2018 Inactive acyclovir 400 mg tablet RxNorm: 623210 2 Tablet(s) PO 5x daily No Start Date 02/28/2017 Inactive Lyrica 50 mg capsule RxNorm: 993529 Capsule(s) PO BID No Start Date 06/09/2018 Inactive Vraylar 3 mg capsule RxNorm: 0040052 1 Capsule(s) PO daily No Start Date 03/12/2018 Inactive valsartan 80 mg tablet RxNorm: 444490 1 Tablet(s) PO daily No Start Date 10/22/2018 Inactive Medication Administered Medication Codes Instructions Start Date Status ketorolac 60 mg/2 mL intramuscular solution RxNorm: 9223934 Milliliter 10/21/2018 No longer Active Kenalog 40 mg/mL suspension for injection RxNorm: 7095894 1.5Milliliter 09/30/2018 No longer Active Kenalog 40 mg/mL suspension for injection RxNorm: 8607628 Milliliter 09/11/2018 No longer Active Kenalog 40 mg/mL suspension for injection RxNorm: 9388427 Milliliter 06/28/2018 No longer Active ketorolac 30 mg/mL injection solution RxNorm: 929814 2Milliliter 05/02/2018 No longer Active ceftriaxone 500 mg solution for injection RxNorm: 1954597 1Milliliter 02/16/2017 No longer Active Kenalog 40 mg/mL suspension for injection RxNorm: 3460373 1Milliliter 02/16/2017 No longer Active ceftriaxone 1 gram solution for injection RxNorm: 4155559 10/06/2016 No longer Active Kenalog 40 mg/mL suspension for injection RxNorm: 0917152 Milliliter 01/20/2016 No longer Active Immunizations Vaccine Codes Date Status Influenza CVX: 141 07/22/2018 completed Influenza CVX: 141 08/16/2017 completed Assessments Condition Codes Effective Dates 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-10: I95.2 ICD-9: 458.8 02/27/2019 Other fatigue ICD-10: R53.83 ICD-9: 780.79 02/17/2019 Atherosclerotic heart disease of [place] coronary artery without angina pectoris ICD-10: I25.10 ICD-9: 414.00 01/13/2019 Essential (primary) hypertension ICD-10: I10 ICD-9: 401.1 01/13/2019 Type 2 diabetes mellitus with hyperglycemia [...] Visit Reason For Visit Effective Dates Notes blood pressure followup 02/27/2019 vertigo 02/17/2019 Hospital [...] Item Item Code Result Date Culture Sputum 961690 LOWER RESPIRATORY TRACT CULTURE SEE NOTES 11/14/2018 Culture Sputum 248881 LOWER RESPIRATORY TRACT CULTURE SEE NOTES 10/16/2018 LIPID GRP [id number] CHOLESTEROL TNP:Duplicate Order 09/10/2018 LIPID GRP Triglyceride TNP:Duplicate Order 2017 LIPID GRP HDL CHOLESTEROL TNP:Duplicate Order 2017 LIPID GRP [id number] Chol/HDL Ratio TNP:Duplicate Order 2017 LIPID GRP LDL Cholesterol TNP:Duplicate Order 2017 A1C HPLC 8217941 Hgb A1c 06787-7 TNP:Duplicate Order 2017 C Diff An [id number] GDH TNP:Lab Request 06/22/2018 C Diff An [id number] Toxin A/B TNP:Lab Request 06/22/2018 C Diff An [id number] C Diff Analyzer TNP:Lab Request 2017 C Diff An [id number] IC OK? TNP:Lab Request 06/22/2018 CBC 6230758 WBC 6.4 10e9/L 05/02/2018 CBC 7957923 RBC 5.60 10e12/L 05/02/2018 CBC 9909366 HEMOGLOBIN 17.0 g/dL 05/02/2018 CBC 6364229 HEMATOCRIT 48.0 % 05/02/2018 CBC 5802108 MCV 85.7 fL 05/02/2018 CBC 0489497 MCH 30.4 pg 05/02/2018 CBC 7893079 MCHC 35.4 g/dL 05/02/2018 CBC 6757391 PLATELET COUNT 166 10e9/L 05/02/2018 CBC 4268675 Mean Plt Volume 11.6 fL 05/02/2018 CBC 4990725 Neut Auto 48.6 % 05/02/2018 CBC 1700731 Lymph Auto 41.7 % 05/02/2018 CBC 3910614 Brooke Auto 8.1 % 05/02/2018 CBC 6328431 RDW 13.1 % 05/02/2018 CBC 5322170 Eos Auto 1.1 % 05/02/2018 CBC 9040024 Baso Auto 0.5 % 05/02/2018 CBC 8685660 Neutrophil Abs 3.11 10e9/L 05/02/2018 CBC 4335895 Lymphocyte Abs 2.67 10e9/L 05/02/2018 CBC 6878416 Monocyte Abs 0.52 10e9/L 05/02/2018 CBC 4470919 Eosinophil Abs 0.07 10e9/L 05/02/2018 CBC 1897701 RDW-SD 40.0 fL 05/02/2018 CBC 7281622 Basophil Abs 0.03 10e9/L 05/02/2018 CHEM 14 5545326 AST 17 U/L 05/02/2018 CHEM 14 0691248 ALT 17 U/L 05/02/2018 CHEM 14 1282573 BUN 17 mg/dL 05/02/2018 CHEM 14 2323251 ALBUMIN 4.0 g/dL 05/02/2018 CHEM 14 1183716 CHLORIDE 97 mmol/L 05/02/2018 CHEM 14 5954806 Bili Total 0.9 mg/dL 05/02/2018 CHEM 14 8799592 ALK PHOS 67 U/L 05/02/2018 CHEM 14 4620051 SODIUM 135 mmol/L 05/02/2018 CHEM 14 2675377 CREATININE 1.18 mg/dL 05/02/2018 CHEM 14 0614676 CALCIUM 9.4 mg/dL 05/02/2018 CHEM 14 4384483 POTASSIUM 4.4 mmol/L 05/02/2018 CHEM 14 2588859 TOTAL PROTEIN 6.9 g/dL 05/02/2018 CHEM 14 2951019 GLUCOSE 316 mg/dL 05/02/2018 CHEM 14 0347458 Bicarbonate 29 mmol/L 05/02/2018 CHEM 14 9270059 AGAP 9 mmol/L 05/02/2018 MEAN GLUC 5841297 Calc Mean Gluc 283 mg/dL 05/02/2018 A1C HPLC 0745595 Hgb A1c 23025-7 11.5 % 05/02/2018 GFR CALC 9689322 GFR Non Afr Amr >60 mL/min 05/02/2018 GFR CALC 9351889 GFR Afr Amr >60 mL/min 05/02/2018 JI Gold 6785396 JIC Gold Complete 02/28/2018 GFR CALC 6766212 GFR Non Afr Amr >60 mL/min 02/28/2018 GFR CALC 0790791 GFR Afr Amr >60 mL/min 02/28/2018 UA W/CII 6790065 UA Urine Appear Normal 02/28/2018 UA W/CII 1770810 UA Protein 1+ 02/28/2018 UA W/CII 8414177 UA Hemoglobin Negative 02/28/2018 UA W/CII 2375420 UA Glucose 4+ 02/28/2018 UA W/CII 2545264 UA Ketones Trace 02/28/2018 UA W/CII 6233156 UA pH 5.5 02/28/2018 UA W/CII 0213973 U Spec [place] 1.015 02/28/2018 UA W/CII 1265899 UA Bilirubin Negative 02/28/2018 UA W/CII 8692645 UA Nitrite NEG 02/28/2018 UA W/CII 1660915 UA Leuk Esteras Negative 02/28/2018 MICR 7244596 UA WBC/hpf 1 02/28/2018 MICR 1789392 UA RBC hpf 2 02/28/2018 MICR 8105628 UA WBC auto 3.8 /uL 02/28/2018 MICR 1970577 UA RBC auto 12.2 /uL 02/28/2018 MICR 9618377 UA SQ EPI auto 2.3 /uL 02/28/2018 MICR 8101749 UA H Cast auto 0.10 /uL 02/28/2018 CBC 7752254 WBC 6.4 10e9/L 02/28/2018 CBC 8391125 RBC 5.51 10e12/L 02/28/2018 CBC 1878911 HEMOGLOBIN 16.7 g/dL 02/28/2018 CBC 4748961 HEMATOCRIT 46.9 % 02/28/2018 CBC 3147356 MCV 85.1 fL 02/28/2018 CBC 3433792 MCH 30.3 pg 02/28/2018 CBC 7321396 MCHC 35.6 g/dL 02/28/2018 CBC 0546232 PLATELET COUNT 173 10e9/L 02/28/2018 CBC 8138845 Mean Plt Volume 11.6 fL 02/28/2018 CBC 5091912 Neut Auto 51.8 % 02/28/2018 CBC 0547143 Lymph Auto 39.9 % 02/28/2018 CBC 5950807 Brooke Auto 7.3 % 02/28/2018 CBC 4508595 RDW 13.3 % 02/28/2018 CBC 5187797 Eos Auto 0.8 % 02/28/2018 CBC 9446786 Baso Auto 0.2 % 02/28/2018 CBC 2278643 Neutrophil Abs 3.32 10e9/L 02/28/2018 CBC 6507276 Lymphocyte Abs 2.55 10e9/L 02/28/2018 CBC 1639462 Monocyte Abs 0.47 10e9/L 02/28/2018 CBC 4609017 Eosinophil Abs 0.05 10e9/L 02/28/2018 CBC 0148760 RDW-SD 40.8 fL 02/28/2018 CBC 2038733 Basophil Abs 0.01 10e9/L 02/28/2018 CHEM 14 6981739 AST 17 U/L 02/28/2018 CHEM 14 5865413 ALT 17 U/L 02/28/2018 CHEM 14 0554870 BUN 20 mg/dL 02/28/2018 CHEM 14 9421827 ALBUMIN 4.1 g/dL 02/28/2018 CHEM 14 5495759 CHLORIDE 97 mmol/L 02/28/2018 CHEM 14 7332360 Bili Total 1.3 mg/dL 02/28/2018 CHEM 14 0983756 ALK PHOS 78 U/L 02/28/2018 CHEM 14 9437674 SODIUM 135 mmol/L 02/28/2018 CHEM 14 0923042 CREATININE 1.09 mg/dL 02/28/2018 CHEM 14 0077971 CALCIUM 9.6 mg/dL 02/28/2018 CHEM 14 6121348 POTASSIUM 3.8 mmol/L 02/28/2018 CHEM 14 4972965 TOTAL PROTEIN 7.3 g/dL 02/28/2018 CHEM 14 3598991 GLUCOSE 349 mg/dL 02/28/2018 CHEM 14 0640149 Bicarbonate 29 mmol/L 02/28/2018 CHEM 14 7236686 AGAP 9 mmol/L 02/28/2018 [place] Spotted Fever Igg/Igm 999175 FEI MT SPOTTED FEVER IGM EIA . 09/05/2017 [place] Spotted Fever Igg/Igm 480384 RMSF, IGM 0.17 index 09/05/2017 [place] Spotted Fever Igg/Igm 532497 FEI MT SPOTTED FEVER IGG EIA FLEX . 09/05/2017 [place] Spotted Fever Igg/Igm 393467 RMSF, IGG SCREEN-FLEX Positive 09/05/2017 Fei Mtn Spot'D Fev Igg 180773 RMSF, IGG -TITER IFA <1:64 11/2016 Ehrlichia Chaffeensis Antibody Igm 476083 EHRLICHIA CHAFFEENSIS IGM < 1:16 09/03/2017 Ehrlichia Chaffeensis Antibody Igg 057099 EHRLICHIA CHAFFEENSIS IGG <1:64 09/03/2017 Lymes Disease Total Antibodies With Western Blot Reflex B. BURGDORFERI, IGG/IGM 0.223 08/30/2017 Lymes Disease Total Antibodies With Western Blot Reflex C-Reactive Protein Qnt Crqnt CRP 0.00 mg/dl 08/27/2017 Sed Rate Ord21 ESR 8 mm/hr 08/27/2017 Comp Metabolic Hti394 NA 135 mEq/L 08/16/2017 Comp Metabolic Yoc748 K 4.1 mEq/L 08/16/2017 Comp Metabolic Qhh235 CL 98 mEq/L 08/16/2017 Comp Metabolic Uyg609 CO2 28.0 mEq/L 08/16/2017 Comp Metabolic Ksy345 ANION GAP 13 08/16/2017 Comp Metabolic Rmu279 GLUCOSE 299 mg/dL 08/16/2017 Comp Metabolic Acy176 Creat 0.9 mg/dL 08/16/2017 Comp Metabolic Nwp254 eGFR 90 ml/min/1.73m2 08/16/2017 Comp Metabolic Wdv921 BUN 20 mg/dL 08/16/2017 Comp Metabolic Cyw729 B/C Ratio 21.5 Ratio 08/16/2017 Comp Metabolic Wsv400 CALCIUM 9.2 mg/dL 08/16/2017 Comp Metabolic Dpm262 ALK PHOS 84 U/L 08/16/2017 Comp Metabolic Mnb623 AST(SGOT) 19 U/L 08/16/2017 Comp Metabolic Kqs080 ALT(SGPT) 24 U/L 08/16/2017 Comp Metabolic Iic070 BILI T 1.1 mg/dL 08/16/2017 Comp Metabolic Zmd793 ALBUMIN 4.2 g/dL 08/16/2017 Comp Metabolic Meu357 TPRO 7.2 g/dL 08/16/2017 Comp Metabolic Unj830 GLOB 3.0 g/dL 08/16/2017 Comp Metabolic Jhf525 A/G Ratio 1.4 Ratio 08/16/2017 Comp Metabolic Rml582 Osmo 284 mOsmo 08/16/2017 %Hba1C Evr847 % HbA1c 64324-4 12.5 % 08/16/2017 %Hba1C Ibk511 Gluc Ave 312 mg/dL 08/16/2017 Urine Culture Ucult Preliminary NO Growth Day 1 06/23/2017 Urine Culture Ucult Complete NO Growth Day 2 06/23/2017 C RAP A SC [id number] Strep A Negative 06/08/2017 %Hba1C Npq276 % HbA1c 32912-5 9.5 % 05/04/2017 %Hba1C Tvu568 Gluc Ave 226 mg/dL 05/04/2017 Tsh Ord6 [...] 31.7 pg 05/04/2017 Cbc With Differential Ord2 Brooke% 8.5 % 05/04/2017 Cbc With Differential Ord2 [...] 2.48 K/ul 05/04/2017 Cbc With Differential Ord2 Brooke ABS# 0.5 K/ul 05/04/2017 Cbc With Differential Ord2 Eos ABS# 0.1 K/ul 05/04/2017 Cbc With Differential Ord2 Baso ABS# 0.0 K/ul 05/04/2017 Comp Metabolic Vvz953 NA 135 mEq/L 05/04/2017 Comp Metabolic Zfs686 K 4.2 mEq/L 05/04/2017 Comp Metabolic Xkb405 CL 99 mEq/L 05/04/2017 Comp Metabolic Lwd802 CO2 26.0 mEq/L 05/04/2017 Comp Metabolic Jgl577 ANION GAP 14 05/04/2017 Comp Metabolic Btg190 GLUCOSE 277 mg/dL 05/04/2017 Comp Metabolic Min957 Creat 0.9 mg/dL 05/04/2017 Comp Metabolic Ymy734 eGFR 96 ml/min/1.73m2 05/04/2017 Comp Metabolic Urn036 BUN 23 mg/dL 05/04/2017 Comp Metabolic Paj750 B/C Ratio 26.1 Ratio 05/04/2017 Comp Metabolic Xsc272 CALCIUM 8.9 mg/dL 05/04/2017 Comp Metabolic Smv372 ALK PHOS 81 U/L 05/04/2017 Comp Metabolic Kaa691 AST(SGOT) 21 U/L 05/04/2017 Comp Metabolic Ora369 ALT(SGPT) 27 U/L 05/04/2017 Comp Metabolic Bca695 BILI T 1.2 mg/dL 05/04/2017 Comp Metabolic Oye422 ALBUMIN 4.0 g/dL 05/04/2017 Comp Metabolic Oeh452 TPRO 6.7 g/dL 05/04/2017 Comp Metabolic Pfk944 GLOB 2.7 g/dL 05/04/2017 Comp Metabolic Pir327 A/G Ratio 1.5 Ratio 05/04/2017 Comp Metabolic Nlx941 Osmo 284 mOsmo 05/04/2017 C A/B FLU [id number] Influenza A Scr Negative 02/16/2017 C A/B FLU [id number] Influenza B Scr Positive 02/16/2017 Cbc With [...] 30.3 pg 05/23/2016 Cbc With Differential Ord2 Brooke% 8.8 % 05/23/2016 Cbc With Differential Ord2 [...] 2.07 K/ul 05/23/2016 Cbc With Differential Ord2 Brooke ABS# 0.5 K/ul 05/23/2016 Cbc With Differential Ord2 Eos ABS# 0.1 K/ul 05/23/2016 Cbc With Differential Ord2 Baso ABS# 0.0 K/ul 05/23/2016 Lipid Ord30 CHOL 397 mg/dL 05/17/2016 Lipid Ord30 HDL 48.0 mg/dl 05/17/2016 Lipid Ord30 TRIG 578 mg/dL 05/17/2016 Lipid Ord30 LDL Unable to calculate Due to elevated triglycerides mg/dL 05/17/2016 Lipid Ord30 C/HDL 8.3 Ratio 05/17/2016 %Hba1C Zod371 % HbA1c 61510-9 12.4 % 05/16/2016 %Hba1C Kwm554 Gluc Ave 309 mg/dL 05/16/2016 Cbc With [...] 30.4 pg 05/15/2016 Cbc With Differential Ord2 Brooke% 7.8 % 05/15/2016 Cbc With Differential Ord2 [...] 2.04 K/ul 05/15/2016 Cbc With Differential Ord2 Brooke ABS# 0.5 K/ul 05/15/2016 Cbc With Differential Ord2 Eos ABS# 0.1 K/ul 05/15/2016 Cbc With Differential Ord2 Baso ABS# 0.0 K/ul 05/15/2016 Tsh Ord6 hTSH II 1.70 uIU/mL 05/15/2016 Comp Metabolic Fto321 NA 135 mEq/L 05/15/2016 Comp Metabolic Cqn323 K 3.9 mEq/L 05/15/2016 Comp Metabolic Zfs374 CL 96 mEq/L 05/15/2016 Comp Metabolic Rny507 CO2 27.0 mEq/L 05/15/2016 Comp Metabolic Kav643 ANION GAP 16 05/15/2016 Comp Metabolic Wfp286 GLUCOSE 183 mg/dL 05/15/2016 Comp Metabolic Pdb922 Creat 1.1 mg/dL 05/15/2016 Comp Metabolic Hod059 eGFR 71 ml/min/1.73m2 05/15/2016 Comp Metabolic Ipu394 BUN 17 mg/dL 05/15/2016 Comp Metabolic Rhq081 B/C Ratio 14.9 Ratio 05/15/2016 Comp Metabolic Rvo653 CALCIUM 9.6 mg/dL 05/15/2016 Comp Metabolic Hsp024 ALK PHOS 100 U/L 05/15/2016 Comp Metabolic Hbd167 AST(SGOT) 20 U/L 05/15/2016 Comp Metabolic Mgg224 ALT(SGPT) 20 U/L 05/15/2016 Comp Metabolic Moq455 BILI T 1.3 mg/dL 05/15/2016 Comp Metabolic Qyy286 ALBUMIN 4.6 g/dL 05/15/2016 Comp Metabolic Zex686 TPRO 8.1 g/dL 05/15/2016 Comp Metabolic Vrb503 GLOB 3.5 g/dL 05/15/2016 Comp Metabolic Yqb241 A/G Ratio 1.3 Ratio 05/15/2016 Comp Metabolic Xyj529 Osmo 276 mOsmo 05/15/2016 Review of Systems System Result Effective Dates Constitutional recent illness 02/27/2019 Constitutional No anorexia [...] nourished 01/13/2019 None Full Exam - General 1994 Eyes conjunctiva /eyelids Overall: conjunctiva clear 01/13/2019 [...] of skin Location: face 05/04/2017 patch left roman catholic Full Exam - General 1994 Constitutional general [...] Codes Date URINALYSIS NONAUTO W/O SCOPE CPT-4: 60196 02/17/2019 KETOROLAC TROMETHAMINE INJ CPT-4: J1885 10/21/2018 TRIAMCINOLONE ACET INJ NOS CPT-4: J3301 09/30/2018 THER/PROPH/DIAG INJ SC/IM CPT-4: 00902 09/11/2018 TRIAMCINOLONE ACET INJ NOS CPT-4: J3301 09/11/2018 IMMUNIZATION ADMIN CPT -4: 35680 07/22/2018 FLU VAC NO PRSV 4 MENA 3 YRS+ CPT-4: 30876 07/22/2018 TRIAMCINOLONE ACET INJ NOS CPT-4: J3301 06/28/2018 KETOROLAC TROMETHAMINE INJ CPT-4: J1885 05/02/2018 FLU VAC NO PRSV 4 MENA 3 YRS+ CPT-4: 76742 08/16/2017 IMMUNIZATION ADMIN CPT -4: 44349 08/16/2017 URINALYSIS NONAUTO W/O SCOPE CPT-4: 84393 06/21/2017 TRIAMCINOLONE ACET INJ NOS CPT-4: J3301 05/04/2017 THER/PROPH/DIAG INJ SC/IM CPT-4: 80792 05/04/2017 TRIAMCINOLONE ACET INJ NOS CPT-4: J3301 02/16/2017 ROCEPHIN, PER 250 MG CPT-4: J0696 02/16/2017 ROCEPHIN, PER 250 MG CPT-4: J0696 10/06/2016 URINALYSIS NONAUTO W/O SCOPE CPT-4: 93153 07/18/2016 TRIAMCINOLONE ACET INJ NOS CPT-4: J3301 01/20/2016 Vital Signs Date Vital 02/27/2019 Blood Pressure 1: 110/80 Code : 8480-6 BMI: 33.0 Code : 22422-7 Heart Rate 1 : 89 bpm Height: 6'2" SpO2: 95% Weight: 257 lbs 02/17/2019 Blood Pressure 1: 120/80 Code : 8480-6 Blood Pressure 2: 102/80 Code: 8480-6 Heart Rate 1: 89 bpm SpO2: 96% 01/13/2019 Blood Pressure 1: 120/70 Code : 8480-6 BMI: 34.2 Code : 05876-4 Heart Rate 1 : 74 bpm Height: 6'2" SpO2: 96% Weight: 266 lbs 12/31/2018 Blood Pressure 1: 122/70 Code : 8480-6 BMI: 34.4 Code : 79225-4 Heart Rate 1 : 90 bpm Height: 6'2" SpO2: 97% Temperature: 36.6 (C) / 97.8 (F) Weight: 268 lbs 12/26/2018 Blood Pressure 1: 118/72 Code : 8480-6 BMI: 34.4 Code : 46892-8 Heart Rate 1 : 82 bpm Height: 6'2" SpO2: 98% Temperature: 36.6 (C) / 97.9 (F) Weight: 268 lbs 11/18/2018 Blood Pressure 1: 120/84 Code : 8480-6 BMI: 33.9 Code : 80866-2 Heart Rate 1 : 77 bpm Height: 6'2" SpO2: 99% Temperature: 36.7 (C) / 98.1 (F) Weight: 264 lbs 11/12/2018 Blood Pressure 1: 138/76 Code : 8480-6 BMI: 33.9 Code : 71778-4 Heart Rate 1 : 91 bpm Height: 6'2" SpO2: 99% Weight: 264 lbs 10/30/2018 Blood Pressure 1: 130/72 Code : 8480-6 BMI: 33.3 Code : 75294-5 Heart Rate 1 : 83 bpm Height: 6'2" SpO2: 95% Temperature: 36.5 (C) / 97.7 (F) Weight: 259 lbs 10/24/2018 Blood Pressure 1: 130/70 Code : 8480-6 Heart Rate 1: 95 bpm Height: 6'2" SpO2: 96% 10/23/2018 Blood Pressure 1: 100/70 Code : 8480-6 Blood Pressure 2: 102/70 Code: 8480-6 BMI: 33.3 Code: 85910-3 Heart Rate 1: 106 bpm Height: 6'2" SpO2: 98% Weight: 259 lbs 10/21/2018 Blood Pressure 1: 140/90 Code : 8480-6 BMI: 32.9 Code : 79651-3 Heart Rate 1 : 96 bpm Height: 6'2" SpO2: 92% Weight: 256 lbs 10/17/2018 Blood Pressure 1: 110/68 Code : 8480-6 BMI: 32.9 Code : 98305-4 Heart Rate 1 : 82 bpm Height: 6'2" SpO2: 97% Weight: 256 lbs 10/14/2018 Blood Pressure 1: 124/70 Code : 8480-6 BMI: 33.6 Code : 37548-0 Heart Rate 1 : 76 bpm Height: 6'2" SpO2: 99% Temperature: 36.3 (C) / 97.3 (F) Weight: 262 lbs 09/30/2018 Blood Pressure 1: 138/82 Code : 8480-6 BMI: 33.6 Code : 40227-2 Heart Rate 1 : 82 bpm Height: 6'2" SpO2: 98% Temperature: 36.3 (C) / 97.3 (F) Weight: 262 lbs 09/09/2018 Blood Pressure 1: 140/80 Code : 8480-6 BMI: 33.0 Code : 87369-9 Heart Rate 1 : 97 bpm Height: 6'2" SpO2: 93% Temperature: 36.8 (C) / 98.2 (F) Weight: 257 lbs 07/22/2018 Blood Pressure 1: 120/78 Code : 8480-6 BMI: 31.6 Code : 47310-0 Heart Rate 1 : 87 bpm Height: 6'2" SpO2: 98% Weight: 246 lbs 07/16/2018 Blood Pressure 1: 132/74 Code : 8480-6 BMI: 31.2 Code : 31723-1 Heart Rate 1 : 90 bpm Height: 6'2" SpO2: 96% Weight: 243 lbs 07/01/2018 Blood Pressure 1: 142/82 Code : 8480-6 BMI: 31.8 Code : 51269-1 Heart Rate 1 : 88 bpm Height: 6'2" SpO2: 98% Weight: 248 lbs 06/28/2018 Blood Pressure 1: 132/76 Code : 8480-6 BMI: 31.8 Code : 21961-3 Heart Rate 1 : 107 bpm Height: 6'2" SpO2: 98% Temperature: 37.9 (C) / 100.3 (F) Weight: 248 lbs 06/18/2018 Blood Pressure 1: 138/82 Code : 8480-6 BMI: 31.8 Code : 61732-9 Heart Rate 1 : 82 bpm Height: 6'2" SpO2: 97% Weight: 248 lbs 06/04/2018 Blood Pressure 1: 128/84 Code : 8480-6 BMI: 33.9 Code : 41650-5 Heart Rate 1 : 86 bpm Height: 6'2" SpO2: 95% Weight: 264 lbs 05/13/2018 Blood Pressure 1: 130/80 Code : 8480-6 BMI: 31.1 Code : 83647-3 Heart Rate 1 : 100 bpm Height: 6'2" SpO2: 94% Weight: 242 lbs 05/02/2018 Blood Pressure 1: 134/84 Code : 8480-6 BMI: 31.2 Code : 55134-1 Heart Rate 1 : 93 bpm Height: 6'2" SpO2: 98% Weight: 243 lbs 04/29/2018 Blood Pressure 1: 142/88 Code : 8480-6 BMI: 31.6 Code : 73300-7 Heart Rate 1 : 96 bpm Height: 6'2" SpO2: 96% Temperature: 36.7 (C) / 98.1 (F) Weight: 246 lbs 03/13/2018 Blood Pressure 1: 120/76 Code : 8480-6 BMI: 30.9 Code : 35932-9 Heart Rate 1 : 112 bpm Height: 6'2" SpO2: 97% Weight: 241 lbs 03/07/2018 Blood Pressure 1: 108/78 Code : 8480-6 BMI: 30.0 Code : 57183-7 Heart Rate 1 : 87 bpm Height: 6'2" SpO2: 98% Weight: 234 lbs 02/28/2018 Blood Pressure 1: 106/74 Code : 8480-6 BMI: 30.0 Code : 58002-0 Heart Rate 1 : 101 bpm Height: 6'2" SpO2: 98% Temperature: 36.4 (C) / 97.5 (F) Weight: 234 lbs 02/13/2018 Blood Pressure 1: 110/78 Code : 8480-6 BMI: 30.0 Code : 01129-0 Heart Rate 1 : 106 bpm Height: 6'2" SpO2: 98% Weight: 234 lbs 01/29/2018 Blood Pressure 1: 106/68 Code : 8480-6 BMI: 30.0 Code : 92306-6 Heart Rate 1 : 108 bpm Height: 6'2" SpO2: 98% Weight: 234 lbs 08/27/2017 Blood Pressure 1: 134/76 Code : 8480-6 Heart Rate 1: 98 bpm Height: SpO2: 97% Weight: 08/16/2017 Blood Pressure 1: 128/80 Code : 8480-6 BMI: 32.0 Code : 90488-7 Heart Rate 1 : 94 bpm Height: [...] Code : 8480-6 BMI: 31.8 Code : 28060-9 Heart Rate 1 : 102 bpm Height: [...] Code : 8480-6 BMI: 31.8 Code : 64167-3 Heart Rate 1 : 85 bpm Height: 6'2" SpO2: 96% Temperature: 36.6 (C) / 97.9 (F) Weight: 248 lbs 02/12/2017 Blood Pressure 1: 126/76 Code : 8480-6 BMI: 31.8 Code : 44763-7 Heart Rate 1 : 106 bpm Height: 6'2" SpO2: 91% Weight: 248 lbs 02/05/2017 Blood Pressure 1: 146/86 Code : 8480-6 BMI: 31.9 Code : 18162-2 Heart Rate 1 : 98 bpm Height: 6'2" SpO2: 87% Temperature: 36.7 (C) / 98.0 (F) Weight: 248 lbs 8 01/29/2017 Blood Pressure 1: 132/84 Code : 8480-6 BMI: 31.8 Code : 66054-8 Heart Rate 1 : 83 bpm Height: 6'2" SpO2: 97% Weight: 248 lbs 10/13/2016 Blood Pressure 1: 128/72 Code : 8480-6 Heart Rate 1: 86 bpm SpO2: 94% 10/09/2016 Blood Pressure 1: 128/68 Code : 8480-6 Heart Rate 1: 136 bpm SpO2: 94% Temperature: 36.8 (C) / 98.2 (F) 10/06/2016 Blood Pressure 1: 140/80 Code : 8480-6 BMI: 32.1 Code : 04144-6 Heart Rate 1 : 94 bpm Height: 6'2" SpO2: 95% Weight: 250 lbs 07/18/2016 Blood Pressure 1: 128/86 Code : 8480-6 BMI: 32.1 Code : 03511-4 Heart Rate 1 : 89 bpm Height: 6'2" SpO2: 96% Weight: 250 lbs 06/22/2016 Blood Pressure 1: 118/70 Code : 8480-6 BMI: 32.1 Code : 60440-8 Heart Rate 1 : 70 bpm Height: 6'2" SpO2: 97% Weight: 250 lbs 05/23/2016 Blood Pressure 1: 128/80 Code : 8480-6 BMI: 32.1 Code : 62990-3 Heart Rate 1 : 76 bpm Height: 6'2" SpO2: 98% Weight: 250 lbs 05/15/2016 Blood Pressure 1: 110/90 Code : 8480-6 BMI: 31.3 Code : 50935-8 Heart Rate 1 : 111 bpm Height: 6'2" SpO2: 97% Temperature: 36.6 (C) / 97.8 (F) Weight: 244 lbs 01/20/2016 Blood Pressure 1: 128/76 Code : 8480-6 BMI: 33.0 Code : 89329-1 Heart Rate 1 : 103 bpm Height: 6'2" SpO2: 95% Weight: 257 lbs Functional Status No Functional Status data History of Present Illness Symptom Name Status Result Effective Date Notes Pertinent Findings Denies dyspnea 02/27/2019 None Pertinent [...] data Encounters Encounter Performer Location Codes Date ([id number]) 88131 EST. PATIENT, LEVEL III Diagnosis: Hypotension due to drugs[ICD10: I95.2] Marcela Ha MD, [facility] CPT-4: 28667 02/27/2019 ([id number]) 16430 EST. PATIENT, LEVEL III Diagnosis: Hypotension due to drugs[ICD10: I95.2] Diagnosis: Other fatigue[ICD10: R53.83] Marcela Ha MD, [facility] CPT-4: 42191 02/17/2019 ([id number]) 40006 EST. 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 PATIENT, LEVEL IV Diagnosis: Type 2 diabetes mellitus with hyperglycemia[ICD10: E11.65] Diagnosis: Epigastric pain[ICD10: R10.13] Diagnosis: Pain in joints of right hand[ICD10: M25.541] Diagnosis: Shortness of breath[ICD10: R06.02] Marcela Ha MD, [facility] CPT-4: 57369 12/31/2018 84887 EST. PATIENT, LEVEL III Diagnosis: Other chest pain[ICD10: R07.89] Diagnosis: Cough[ICD10: R05] Madeline Ha MD, [facility] CPT-4: 06918 12/26/2018 ([id number]) 38188 EST. PATIENT, LEVEL III Diagnosis: Cough[ICD10: R05] Melida Ha MD, [facility] CPT-4: 60889 11/18/2018 ([id number]) 54816 EST. PATIENT, LEVEL III Diagnosis: Cough[ICD10: R05] Diagnosis: Pneumonia due to other Gram-negative bacteria[ICD10: J15.6] Marcela Ha MD, [facility] CPT-4: 29954 11/12/2018 ([id number]) 32766 EST. PATIENT, LEVEL III Diagnosis: Pneumonia due to other Gram-negative bacteria[ICD10: J15.6] Diagnosis: Cough[ICD10: R05] Melida Ha MD, [facility] CPT-4: 67965 10/30/2018 ([id number]) 04958 EST. PATIENT, LEVEL II Diagnosis: Pain in joints of right hand[ICD10: M25.541] Diagnosis: Trigger finger, right middle finger[ICD10: M65.331] Marcela Ha MD, [facility] CPT-4: 67398 10/24/2018 ([id number]) 73480 EST. PATIENT, LEVEL IV Diagnosis: Essential (primary) hypertension[ICD10: I10] Diagnosis: Type 2 diabetes mellitus with foot ulcer[ICD10: E11.621] Melida aH MD, [facility] CPT-4: 60516 10/23/2018 ([id number]) 30430 EST. PATIENT, LEVEL III Diagnosis: Cellulitis of right finger[ICD10: L03.011] Diagnosis: Type 2 diabetes mellitus with foot ulcer[ICD10: E11.621] Diagnosis: Pain in right hand[ICD10: M79.641] Melida Ha MD, [facility] CPT-4: 56226 10/21/2018 20586 EST. PATIENT, LEVEL III Diagnosis: Spontaneous ecchymoses[ICD10: R23.3] Diagnosis: Cellulitis of right lower limb[ICD10: L03.115] Diagnosis: Cellulitis of left lower limb[ICD10: L03.116] Madeline Ha MD, [facility] CPT-4: 99724 10/17/2018 ([id number]) 34402 EST. PATIENT, LEVEL III Diagnosis: Cough[ICD10: R05] Diagnosis: Acute bronchitis, unspecified[ICD10: J20.9] Melida Ha MD, [facility] CPT-4: 89290 10/14/2018 54179 EST. PATIENT, LEVEL III Diagnosis: Acute laryngopharyngitis[ICD10: J06.0] Diagnosis: Cough[ICD10: R05] Madeline Ha MD, [facility] CPT-4: 03541 09/30/2018 ([id number]) 89699 EST. PATIENT, LEVEL III Diagnosis: Acute recurrent maxillary sinusitis[ICD10: J01.01] Diagnosis: Cough[ICD10: R05] Diagnosis: Type 2 diabetes mellitus with hyperglycemia[ICD10: E11.65] Marcela Ha MD, [facility] CPT-4: 21562 09/09/2018 ([id number]) 06814 EST. PATIENT, LEVEL IV Diagnosis: Essential (primary) hypertension[ICD10: I10] Diagnosis: Mixed hyperlipidemia[ICD10: E78.2] Diagnosis: Bipolar disorder, current episode depressed, moderate[ICD10: F31.32] Diagnosis: Type 2 diabetes mellitus with other specified complication[ICD10: E11.69] Melida Ha MD, [facility] CPT-4: 79511 2017 ([id number]) 20403 EST. PATIENT, LEVEL III Diagnosis: Insomnia due to medical condition[ICD10: G47.01] Marcela Ha MD, [facility] CPT-4: 84423 07/16/2018 ([id number]) Miscellaneous no charge Diagnosis: Cough[ICD10: R05] Madeline Ha MD, [facility] CPT-4: 23469 07/01/2018 24141 EST. PATIENT, LEVEL III Diagnosis: Cough[ICD10: R05] Diagnosis: Acute laryngopharyngitis[ICD10: J06.0] Diagnosis: Other allergic rhinitis[ICD10: J30.89] Madeline Ha MD, [facility] CPT-4: 51718 06/28/2018 ([id number]) 99817 EST. PATIENT, LEVEL IV Diagnosis: Type 2 diabetes mellitus with hyperglycemia[ICD10: E11.65] Diagnosis: Essential (primary) hypertension[ICD10: I10] Melida Ha MD, [facility] CPT-4: 53338 06/18/2018 ([id number]) 79085 EST. PATIENT, LEVEL IV Diagnosis: Type 2 diabetes mellitus with hyperglycemia[ICD10: E11.65] Diagnosis: Essential (primary) hypertension[ICD10: I10] Diagnosis: Localized edema[ICD10: R60.0] Melida Ha MD, [facility] CPT- 4: 68449 06/04/2018 ([id number]) 02091 EST. PATIENT, LEVEL III Diagnosis: Type 2 diabetes mellitus with hyperglycemia[ICD10: E11.65] Diagnosis: Myalgia[ICD10: M79.1] Diagnosis: Pain in right hip[ICD10: M25.551] Diagnosis: Pain in left hip[ICD10: M25.552] Marcela Ha MD, [facility] CPT-4: 63340 05/13/2018 ([id number]) 31673 EST. PATIENT, LEVEL III Diagnosis: Myalgia[ICD10: M79.1] Diagnosis: Pain in right hip[ICD10: M25.551] Diagnosis: Pain in left hip[ICD10: M25.552] Marcela Ha MD, [facility] CPT-4: 30470 05/02/2018 ([id number]) 48948 EST. PATIENT, LEVEL IV Diagnosis: Essential (primary) hypertension[ICD10: I10] Diagnosis: Type 2 diabetes mellitus with hyperglycemia[ICD10: E11.65] Diagnosis: Major depressive disorder, single episode, moderate[ICD10: F32.1] Diagnosis: Myalgia[ICD10: M79.1] Marcela Ha MD, [facility] CPT-4: 26519 04/29/2018 ([id number]) 32473 EST. PATIENT, LEVEL IV Diagnosis: Type 2 diabetes mellitus with hyperglycemia[ICD10: E11.65] Diagnosis: Essential (primary) hypertension[ICD10: I10] Diagnosis: Major depressive disorder, single episode, moderate[ICD10: F32.1] Melida Ha MD, [facility] CPT-4: 83071 03/13/2018 ([id number]) 58957 EST. PATIENT, LEVEL III Diagnosis: Type 2 diabetes mellitus with hyperglycemia[ICD10: E11.65] Diagnosis: Bipolar disorder, current episode depressed, moderate[ICD10: F31.32] Diagnosis: Orthostatic hypotension[ICD10: I95.1] Marcela Ha MD, [facility] CPT-4: 63148 03/07/2018 ([id number]) 69412 EST. PATIENT, LEVEL IV Diagnosis: Type 2 diabetes mellitus with hyperglycemia[ICD10: E11.65] Diagnosis: Major depressive disorder, single episode, moderate[ICD10: F32.1] Diagnosis: Orthostatic hypotension[ICD10: I95.1] Diagnosis: Other fatigue[ICD10: R53.83] Marcela Ha MD, [facility] CPT-4: 89366 02/28/2018 13011 EST. PATIENT, LEVEL IV Diagnosis: Other fatigue[ICD10: R53.83] Diagnosis: Other malaise[ICD10: R53.81] Diagnosis: Gastro-esophageal reflux disease without esophagitis[ICD10: K21.9] Madeline Ha MD, [facility] CPT-4: 67243 02/13/2018 ([id number]) 35271 EST. PATIENT, LEVEL IV Diagnosis: Type 2 diabetes mellitus with foot ulcer[ICD10: E11.621] Diagnosis: Essential (primary) hypertension[ICD10: I10] Diagnosis: Gastro-esophageal reflux disease without esophagitis[ICD10: K21.9] Marcela Ha MD, [facility] CPT-4: 23051 01/29/2018 70190 EST. PATIENT, LEVEL III Diagnosis: Other malaise[ICD10: R53.81] Diagnosis: Other fatigue[ICD10: R53.83] Diagnosis: Pain in right shoulder[ICD10: M25.511] Diagnosis: Pain in left shoulder[ICD10: M25.512] Madeline Ha MD, [facility] CPT-4: 98277 08/27/2017 ([id number]) 96282 EST. PATIENT, LEVEL IV Diagnosis: Essential (primary) hypertension[ICD10: I10] Diagnosis: Type 2 diabetes mellitus with hyperglycemia[ICD10: E11.65] Diagnosis: VACCIN FOR INFLUENZA[ICD10: Z23] Melida Ha MD, [facility] CPT-4: 91703 08/16/2017 87402 EST. PATIENT, LEVEL III Diagnosis: Zoster without complications[ICD10: B02.9] Madeline Ha MD, [facility] CPT-4: 23034 07/26/2017 ([id number]) 33883 EST. PATIENT, LEVEL III Diagnosis: Cellulitis of right lower limb[ICD10: L03.115] Marcela Ha MD, [facility] CPT-4: 02499 07/03/2017 39783 EST. PATIENT, LEVEL II Diagnosis: Laceration without foreign body of left forearm, initial encounter[ ICD10: S51.812A] Marcela Ha MD, [facility] CPT-4: 83230 06/29/2017 ([id number]) 92669 EST. PATIENT, LEVEL III Diagnosis: Cellulitis of right lower limb[ICD10: L03.115] Diagnosis: Type 2 diabetes mellitus with foot ulcer[ICD10: E11.621] Marcela Ha MD [facility] CPT-4: 43845 06/18/2017 ([id number]) 42006 EST. PATIENT, LEVEL IV Diagnosis: Cellulitis of right lower limb[ICD10: L03.115] Diagnosis: Acute laryngopharyngitis[ICD10: J06.0] Diagnosis: Gastro-esophageal reflux disease without esophagitis[ICD10: K21.9] Marcela Ha MD [facility] CPT-4: 76836 06/07/2017 ([id number]) 42496 EST. PATIENT, LEVEL III Diagnosis: Type 2 diabetes mellitus with hyperglycemia[ICD10: E11.65] Diagnosis: Insect bite (nonvenomous) of abdominal wall, initial encounter[ICD10 : S30.861A] Marcela Ha MD [facility] CPT-4: 90304 05/17/2017 ([id number]) 19938 EST. PATIENT, LEVEL III Diagnosis: Allergic contact dermatitis due to plants, except food[ICD10: L23.7] Melida Ha MD [facility] CPT-4: 76042 05/04/2017 ([id number]) 98112 EST. PATIENT, LEVEL III Diagnosis: Essential (primary) hypertension[ICD10: I10] Marcela Ha MD [facility] CPT-4: 10705 03/15/2017 ([id number]) 47224 EST. PATIENT, LEVEL III Diagnosis: Cough[ICD10: R05] Diagnosis: Essential (primary) hypertension[ICD10: I10] Marcela Ha MD [facility] CPT-4: 29857 03/01/2017 ([id number]) 57740 EST. PATIENT, LEVEL III Diagnosis: Cough[ICD10: R05] Diagnosis: Nasal congestion[ICD10: R09.81] Diagnosis: Acute recurrent maxillary sinusitis[ICD10: J01.01] Marcela Ha MD [facility] CPT-4: 89834 02/16/2017 ([id number]) 93150 EST. PATIENT, LEVEL III Diagnosis: Type 2 diabetes mellitus with hyperglycemia[ICD10: E11.65] Marcela Ha MD [facility] CPT-4: 40605 02/12/2017 ([id number]) 81153 EST. PATIENT, LEVEL IV Diagnosis: Type 2 diabetes mellitus with hyperglycemia[ICD10: E11.65] Diagnosis: Muscle weakness (generalized)[ICD10: M62.81] Diagnosis: Disorientation, unspecified[ICD10: R41.0] Marcela Ha MD, [facility] CPT-4: 71075 02/05/2017 ([id number]) Patient admitted to the hospital from clinic (NO CHARGE) Diagnosis: Type 2 diabetes mellitus with hyperglycemia[ICD10: E11.65] Diagnosis: Disorientation, unspecified[ICD10: R41.0] Diagnosis: Muscle weakness (generalized)[ICD10: M62.81] Marcela Ha MD, [facility] CPT-4: 80259N 01/29/2017 ([id number]) Miscellaneous no charge Diagnosis: Cellulitis of right lower limb[ICD10: L03.115] Marcela Ha MD, [facility] CPT-4: 96900 10/13/2016 ([id number]) Miscellaneous no charge Diagnosis: Type 2 diabetes mellitus with foot ulcer[ICD10: E11.621] Diagnosis: Pain in right foot[ICD10: M79.671] Marcela Ha MD, [facility] CPT-4: 56058 10/09/2016 83112 EST. PATIENT, LEVEL II Diagnosis: Cellulitis of right lower limb[ICD10: L03.115] Marcela Ha MD, [facility] CPT-4: 70801 10/06/2016 ([id number]) 75774 EST. PATIENT, LEVEL IV Diagnosis: Low back pain[ICD10: M54.5] Diagnosis: Other deformities of toe(s) (acquired), left foot[ICD10: M20.5X2] Diagnosis: Type 2 diabetes mellitus with foot ulcer[ICD10: E11.621] Marcela Ha MD , [facility] CPT-4: 12712 07/18/2016 ([id number]) 08257 EST. PATIENT, LEVEL III Diagnosis: Type 2 diabetes mellitus with hyperglycemia[ICD10: E11.65] Marcela Ha MD, [facility] CPT-4: 34669 06/22/2016 ([id number]) 80870 EST. PATIENT, LEVEL IV Diagnosis: Type 2 diabetes mellitus with hyperglycemia[ICD10: E11.65] Diagnosis: Mixed hyperlipidemia[ICD10: E78.2] Diagnosis: Other hemoglobinopathies[ICD10: D58.2] Marcela Ha MD, [facility] CPT-4: 62098 05/23/2016 ([id number]) 07430 EST. PATIENT, LEVEL IV Diagnosis: Type 2 diabetes mellitus with other specified complication[ICD10: E11.69] Diagnosis: Dehydration[ICD10: E86.0] [facility] CPT-4: 46955 05/15/2016 ([id number]) OFFICE VISIT, NEW - LEVEL 3 Diagnosis: Allergic contact dermatitis due to plants, except food[ICD10: L23.7] Madeline Ha MD, [facility] CPT-4: 25592 01/20/2016 Plan of Care Planned Activity Notes Codes Status Date Visit Plan: Hypotension -patient extremely symptomatic with [...] symptoms and call with any concerns 02/27/2019 Patient Education: Patient Medication Summary Completed 02/27/2019 Visit Plan: Orthostasis -decrease coreg -monitor symptoms and follow up in 10 days- sooner if needed Fatigue-check labs 02/17/2019 Appointment: Marcela Oshea WPtel: [address] [place], [place] [phone] (30 min) Complex 02/17/2019 Patient Education: Patient Medication Summary Completed 02/17/2019 Appointment: Marcela Oshea WPtel: [address] [place], [place] [phone] (30 min) Complex 01/14/2019 Visit Plan: Hypertension [...] Summary Completed 01/13/2019 Appointment: Marcela Oshea WPtel: [phone] (30 min) Complex 01/10/2019 Visit Plan: Epigastric pain -start protonix daily- monitor symptoms Chest pain -work up negative done last week with Madeline-recommend appt with Dr Brennan Joint pain-check inflammation makers DM-check Hgb a1c 12/31/2018 Appointment: Marcela Oshea WPtel: [phone] (15 min) Moderate 12/31/2018 Patient Education: Patient Medication Summary Completed 12/31/2018 Visit Plan: chest pain - EKG and cardiac enzymes OK - discussed with Dr. Ha - will treat for pneumonia - pt is to notify clinic if symptoms do not improve, if they worsen, or with any changes questions, or concerns. 12/26/2018 Appointment: Madeline Kennedy WPtel: [phone] (30 min) Complex 12/26/2018 Patient Education: Patient Medication Summary Completed 12/26/2018 Referral: Andrew Cross Patient informed. Referral info faxed. Completed Visit Plan: cough - improved - continue with inhalers - continue with symbicort - rx for proair for PRN use when pt is feelign short of breath with activity. 11/18/2018 Appointment: Melida Ha WPtel: [facility]5 [phone] (15 min) Moderate 11/18/2018 Patient Education: Patient [...] of plan. 11/12/2018 Appointment: Marcela Oshea WPtel: [facility]5 [phone] (30 min) Complex 11/12/2018 Patient Education: Patient Medication Summary Completed 11/12/2018 Patient Education: Symbicort - 18-64 - eCopay Completed 11/12/2018 Care Plan: Referral Order SNOMED-CT : 931512977 Pending 11/12/2018 Referral: Niko Mantilla Referral Completed 11/04/2018 Visit Plan: Pneumonia, cough - recent diagnosis of Moraxella Cattharalis - with sensitivity to levaquin - will give 2 wks of levaquin since he had improvement but no full resolution of symptoms. 10/30/2018 Appointment: Melida Ha WPtel: [facility]5 [phone] 30 min appointments only in this slot 10/30/2018 Patient Education: Patient Medication Summary Completed 10/30/2018 Visit Plan: Right hand-joint pain and swelling -negative for gout -treated for cellulitis right 2nd mcp joint -now having difficulty with long finger "locking" -Dr Ha in to evaluate patient and tape index and long finger in place-refer to Dr Mantilla for evaluation 10/24/2018 Appointment: Marcela Oshea WPtel: [facility]5 [phone] (30 min) Complex 10/24/2018 Patient Education: Patient Medication Summary Completed 10/24/2018 Care Plan: Referral Order SNOMED-CT : [id number] Pending 10/24/2018 Visit Plan: Hypotension - discussed [...] less controlled. 10/23/2018 Appointment: Melida Ha WPtel: [address] [place], [place] [phone] (15 min) Moderate 10/23/2018 Patient Education: Patient [...] and plan. 10/21/2018 Appointment: Marcela Oshea WPtel: [facility]3 [phone] (30 min) Complex 10/21/2018 Patient Education: [...] warmth, discharge. 10/17/2018 Appointment: Madeline Kennedy WPtel: [facility] (15 min) Moderate 10/17/2018 Patient Education: [...] acutely worsen. 10/14/2018 Appointment: Marcela Oshea WPtel: [phone] [phone] (15 min) Moderate 10/14/2018 Patient Education: Patient Medication Summary Completed 10/14/2018 Care Plan: CHEST X-RAY 2VW FRONTAL&LATL LOINC : 61695-8 Pending 10/14/2018 Visit Plan: URI - Pt [...] allergy spray. 09/30/2018 Appointment: Madeline Kennedy WPtel: [facility]5 [phone] (15 min) Moderate 09/30/2018 Patient Education: [...] Hgb A1C 09/09/2018 Appointment: Marcela Oshea WPtel: [address] [place], [place] [phone] (15 min) Moderate 09/09/2018 Patient Education: Patient Medication Summary Completed 09/09/2018 Patient Education: Patient Medication Summary Completed 09/06/2018 Patient Education: Cholesterol Management Completed 09/06/2018 Care Plan: Comp Metabolic Pending 09/06/2018 Care Plan: Cbc With Differential Pending 09/06/2018 Care Plan: %Hba1C LOINC : 50566-1 Pending 09/06/2018 Care Plan: Tsh Pending 09/06/2018 Care Plan: Lipid Pending 09/06/2018 Appointment: Marcela Oshea WPtel: [address] [place], [place] [phone] (15 min) Moderate 08/26/2018 Appointment: Marcela Oshea WPtel: [address] [place], [place] [phone] (15 min) Moderate 08/23/2018 Visit Plan: Hypertension [...] clinic. 07/22/2018 Appointment: Melida Ha WPtel: [phone] [phone] (15 min) Moderate 07/22/2018 Patient Education: [...] insomnia. 07/16/2018 Appointment: Marcela Oshea WPtel: [phone] [phone] (30 min) Complex 07/16/2018 Patient Education: Patient Medication Summary Completed 07/16/2018 Visit Plan: cough - improved - notify clinic if symptoms do not completely resolve, or with any questions or concerns. 07/01/2018 Appointment: [phone] (15 min) Moderate 07/01/2018 Patient Education: Patient [...] allergy spray. 06/28/2018 Appointment: Madeline Kennedy WPtel: [facility]6 [facility] (15 min) Moderate 06/28/2018 Patient Education: [...] at home. 06/18/2018 Appointment: Melida Ha WPtel: [facility]7 [facility] (15 min) Moderate 06/18/2018 Patient [...] allow for greater blood glucose control. Joint hrso-piqvnvfe-ybjdydx- symptoms have improved -stop meloxicam due to upset stomach-call if symptoms return 05/13/2018 Appointment: Marcel[facility]a [facility]Ptel[phone] [place] (30 min) Complex 05/13/2018 Patient Education: Patient Medication Summary Completed 05/13/2018 Visit Plan: Bilateral hip eibo-tethwarl-eqhfqtb IM injection administered today for c/o continued myalgia/arthralgia. Patient to start taking Meloxicam 15mg PO daily. Advised to return to clinic if symptoms do not improve. 05/02/2018 Appointment: Marcela Osheal: [facility]5 [phone] (30 min) Complex 05/02/2018 Patient Education: [...] readings at home. Diabetes Mellitus -check labs Mqvyosht-siryzrx-ckaw bite-rx for doxycycline-follow up in 2 weeks 04/29/2018 Appointment: Marcela Oshea WPtel: [facility]9 [phone] (15 min) Moderate 04/29/2018 Patient Education: Patient Medication Summary Completed 04/29/2018 Appointment: Melida Ha WPtel: [phone] [phone] (15 min) Moderate 04/15/2018 Appointment: Marcela Oshea WPtel: [facility]7 [phone] (30 min) Complex 03/21/2018 Visit Plan: [...] cymbalta 03/13/2018 Appointment: Melida Ha WPtel: [phone] [phone] (30 min) Complex 03/13/2018 Patient Education: Patient Medication Summary Completed 03/13/2018 Visit Plan: DM-continue same medications-monitor blood sugars routinely as directed -rx for new glucometer and test strips provided Bipolar-currently depressed-patient start on vraylar-follow up in 2 weeks, sooner if needed. Patient and verbalied understanding of plan. Hypotension- stay off losartan 03/07/2018 Appointment: Marcela Oshea WPtel: [facility]8 [phone] (30 min) Complex 03/07/2018 Patient Education: Patient Medication Summary Completed 03/07/2018 Appointment: Melida Ha WPtel: [phone] [phone] (15 min) Moderate 03/04/2018 Visit Plan: [...] patient. 02/28/2018 Appointment: Marcela Oshea WPtel: [phone] [phone] (30 min) Complex 02/28/2018 Patient Education: [...] improving. 02/13/2018 Appointment: Madeline Kennedy [facility]Ptel: [phone] (15 min) Moderate 02/13/2018 Patient Education: Patient Medication Summary Completed 02/13/2018 Referral: Sun Glynn Patient informed. Referral info faxed. Completed Visit Plan: DM-weight loss-not checking blood sugars- patient sent for labs today HTN-low pxgev-hpthfyn-avlym labs Callus of foot and fissue of heel-refer to Dr Glynn for evaluation Esophageal Reflux - the patient has been counseled against excessive intake of caffeine, spicy foods, peppermint , and cinnamon - all of which can exacerbate esophageal reflux. The patient is to take medications as prescribed and call the office if the symptoms are not improving. 01/29/2018 Appointment: Marcela Oshea WPtel: [phone] [place] (30 min) Complex 01/29/2018 Patient Education: Patient Medication Summary Completed 01/29/2018 Care Plan: Comp Metabolic Cancelled 01/29/2018 Care Plan: Cbc With Differential Cancelled 01/29/2018 Care Plan: %Hba1C LOINC : 91297-3 Cancelled 01/29/2018 Care Plan: Referral Order SNOMED-CT : [id number] Cancelled 01/29/2018 Visit Plan: Fatigue, malaise, joint [...] concerns. 08/27/2017 Appointment: Madeline Kennedy WPtel: [phone] [phone] (15 min) Moderate 08/27/2017 Patient Education: [...] today - 08/16/2017 Appointment: Melida Ha WPtel: [phone] [phone] (30 min) Complex 08/16/2017 Patient Education: Patient Medication Summary Completed 08/16/2017 Patient Education: Obesity Completed 08/16/2017 Appointment: Madeline Kennedy WPtel: [phone] [phone] (30 min) Complex 08/07/2017 Visit Plan: [...] considered contagious. 07/26/2017 Appointment: Madeline Kennedy [facility]Ptel: [phone] (15 min) Moderate 07/26/2017 Patient Education: Patient Medication Summary Completed 07/26/2017 Visit Plan: Cellulitis right foot-cultured today in the office-home health to reapply wound vac--appt with wound care on to evaluate for debridement- 07/03/2017 Appointment: Marcela Oshea WPtel: [address] [place], [place] [phone] (30 min) Complex 07/03/2017 Patient Education: Patient Medication Summary Completed 07/03/2017 Visit Plan: Abrasion left arm - Pt was instructed to keep the wound clean, wash with antibacterial soap, use triple antibiotic ointment, call if redness, pustular drainage, or any other acute concerns. 06/29/2017 Appointment: Marcela Oshea WPtel: [address] [place], [place] [phone] (15 min) Moderate 06/29/2017 Patient Education: Patient [...] of plan. 06/18/2017 Appointment: Marcela Oshea WPtel: [address] [place], [place] [phone] (15 min) Moderate 06/18/2017 Patient Education: Patient [...] prilosec 06/07/2017 Appointment: Marcela Oshea WPtel: [phone] (10 min) Simple 06/07/2017 Patient Education: Patient [...] doxycycline 05/17/2017 Appointment: Marcela Oshea WPtel: [phone] [phone] (30 min) Complex 05/17/2017 Patient Education: [...] blue rosieo called into [facility]. 05/04/2017 Appointment: Marcela Oshea WPtel: [phone] [phone] (30 min) Complex 05/04/2017 Patient Education: [...] Cough-resolved 03/15/2017 Appointment: Marcela Oshea WPtel: [phone] [phone] (15 min) Moderate 03/15/2017 Patient Education: Patient Medication Summary Completed 03/15/2017 Appointment: Marcela Oshea WPtel: [address] [place], [place] [phone] [place] [address] (30 min) Complex 03/12/2017 Visit Plan: Feng [...] as discussed 02/16/2017 Appointment: Marcela Oshea WPtel: [address] [place], [place] [phone] [place] [address] (15 min) Moderate 02/16/2017 Patient Education: Patient [...] less controlled. 02/12/2017 Appointment: Marcela Oshea WPtel: [address] [place], [place] [phone] (30 min) Complex 02/12/2017 Patient Education: Patient Medication Summary Completed 02/12/2017 Appointment: Marcela Oshea WPtel: [address] [place], [place] [phone] (30 min) Complex 02/06/2017 Visit Plan: Diabetes [...] will consider 02/05/2017 Appointment: Marcela Oshea WPtel: [facility]5 [phone] (30 min) Complex 02/05/2017 Patient Education: Patient Medication Summary Completed 02/05/2017 Appointment: Marcela Oshea WPtel: [address] [place], [place] [phone] (30 min) Complex 01/30/2017 Visit Plan: Acute confusion-uncontrolled diabetes- chronically noncompliant with treatment and stopped his insulin several months ago-r/o stroke vs DKA-Dr Ha in to evaluate patient-plan to admit for further work up and treatment-patient's called and she transported him to the hospital 01/29/2017 Appointment: Marcela Oshea WPtel: [phone] (30 min) Complex 01/29/2017 Patient Education: Patient Medication Summary Completed 01/29/2017 Patient Education: Obesity Completed 01/29/2017 Visit Plan: Right foot pain-MRI shows foreign body-appt with Dr Grewal for evaluation on Sunday. 10/13/2016 Appointment: Marcela Oshea WPtel: [address] [place], [place] [phone] [place] (15 min) Moderate 10/13/2016 Patient Education: Patient Medication Summary Completed 10/13/2016 Appointment: Marcela Oshea WPtel: [address] [place], [place] [phone] (30 min) Complex 10/12/2016 Visit Plan: Right foot fnkp-lwyvzmap-zriab washer dropped on foot-xray negative but pain continues to increase-recommend MRI of foot for further evaluation-refer to wound care for lesions on right foot, patient has diabetes and history of osteomyelitis-culture obtained today-continue oral abx- follow up in the office on , sooner if needed 10/09/2016 Visit Plan: Right foot vcsv-ayokmfoz-gftae washer dropped on foot-xray negative but pain continues to increase-recommend MRI of foot for further evaluation-refer to wound care for lesions on right foot, patient has diabetes and history of osteomyelitis-culture obtained today-continue oral abx- follow up in the office on , sooner if needed 10/09/2016 Visit Plan: Right foot iopa-nwoxyija-uwbrn washer dropped on foot-xray negative but pain continues to increase-recommend MRI of foot for further evaluation-refer to wound care for lesions on right foot, patient has diabetes and history of osteomyelitis-culture obtained today-continue oral abx- follow up in the office on , sooner if needed 10/09/2016 Appointment: Marcela Oshea WPtel: [address] [place] [address] (30 min) Complex 10/09/2016 Patient Education: Patient Medication Summary Completed 10/09/2016 Visit Plan: Cellulitis - continue with oral antibiotics as previously directed, return to clinic as previously directed, call for acute change in symptoms, worsening redness, warmth, discharge. 10/06/2016 Appointment: Marcela Oshea WPtel: [address] [place], [place] [phone] (10 min) Simple 10/06/2016 Patient Education: Patient Medication Summary Completed 10/06/2016 Appointment: Marcela Oshea WPtel: [address] [place], [place] [phone] (30 min) Complex 08/24/2016 Referral: Sun Glynn Referral Completed 07/21/2016 Visit Plan: Low back pain- history of spinal fusion- patient for xray lumbar spine-RX sent to [facility] pharmacy and instructed on use-topical voltaren samples provided and instructed on use. Ok to use tylenol as needed as well. The patient is to call the office if the pain is worsening or does not improve. Pressure ulcer left 4th toe-refer to Dr Glynn for evaluation 07/18/2016 Appointment: Marcela Oshea WPtel: [phone] [phone] (30 min) Complex 07/18/2016 Patient Education: Patient Medication Summary Completed 07/18/2016 Patient Education: Obesity Completed 07/18/2016 Care Plan: Referral Order SNOMED-CT : [id number] Cancelled 07/18/2016 Visit Plan: Diabetes Mellitus - [...] control. 06/22/2016 Appointment: Marcela Oshea WPtel: [phone] [phone] (30 min) Complex 06/22/2016 Patient Education: [...] today 05/23/2016 Appointment: Marcela Oshea WPtel: [phone] [phone] (30 min) Complex 05/23/2016 Patient Education: [...] of plan. 05/15/2016 Appointment: Marcela Oshea WPtel: [phone] (15 min) Moderate 05/15/2016 Patient Education: Patient [...] anai edge called into [facility]. xray lumbar spine flexeril as needed voltaren gel ulcer left 4th toe-refer to rn wound . Low back pain- history of spinal fusion-patient for xray lumbar spine-RX sent to [facility] pharmacy and instructed on use-topical [...] for fracture from injury . Right foot sdzl-tekpicah-lnamv washer dropped on foot-xray negative but pain [...] for fracture from injury . Right foot qbbs-dutwezos-ubfin washer dropped on foot-xray negative but pain [...] for fracture from injury . Right foot muly-nhqfqbbg-kbsbu washer dropped on foot-xray negative but pain [...] if needed Fatigue-check labs . Bilateral hip buxq-duztznqf-pkupfxw IM injection administered today for c/o continued myalgia/arthralgia. Patient to start taking Meloxicam 15mg PO daily. Advised to return to clinic if symptoms do not improve. . DM-weight loss-not checking blood sugars-patient sent for labs today HTN-low cgkuq-pgtzetp-rrowp labs Callus of foot and fissue of [...] readings are starting to become less controlled. Ecpzrhgpv-yrttjtyn-mywwldmj to monitor Generalized weakness-refer for PT-patient refuses [...] allow for greater blood glucose control. Joint yivt-laubgnzh-zrlrwgf-symptoms have improved -stop meloxicam due to upset [...] readings at home. Diabetes Mellitus -check labs Qtrwpnhr-skvakkk-prma bite-rx for doxycycline-follow up in 2 weeks [...]
[2019-03-10] MEDS ORDERED: fentaNYL INJECTION 100 MCG/2 ML AMP IVP STA (09:41)
--- OUTSIDE RECORDS SUMMARY | 2019-03-10 09:41 | XMS REPORT | CCD ---
Author Author Madeline Kennedy MD, [facility] Address [address] [place] [address] Phone Care Team Providers Care Lockstitch Front Maker Name Role Phone PP Unavailable CCM Unavailable Summary Purpose Interface Exchange Insurance Providers Payer name Policy type / Coverage type Covered libertarian ID Effective Begin Date Effective End Date [employer] 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 [...] R53.83 08/27/2017 Active 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 [...] Instructions Cymbalta 30 mg capsule,delayed release RxNorm: 271268 1 Capsule(s) PO daily 02/27/2019 No Stop Date Active Lyrica 50 mg capsule RxNorm: 720754 Capsule(s) PO daily 201806/25/2019 Active Cymbalta 60 mg capsule,delayed release RxNorm: 165164 1 Capsule(s) PO QAM 02/19/2019 02/26/2019 Inactive will call for refill- dose change Coreg 6.25 mg tablet RxNorm: 943281 1 Tablet(s) daily 201802/26/2019 Inactive clonazepam 1 mg tablet RxNorm: 215532 2 Tablet(s) PO HS 201806/14/2019 Active Tresiba FlexTouch U-200 insulin 200 unit/mL (3 mL) subcutaneous pen RxNorm: 1288887 50 Unit(s) SQ daily 01/08/2019 05/07/2019 Active please give him 30 day supply Protonix 40 mg tablet,delayed release RxNorm: 040304 1 Tablet(s) PO daily 12/31/2018 01/29/2019 Inactive Tresiba FlexTouch U-200 insulin 200 unit/mL (3 mL) subcutaneous pen RxNorm: 9362588 50 Unit(s) SQ daily 12/31/2018 01/07/2019 Inactive please give him 30 day supply Augmentin 500 mg-125 mg tablet RxNorm: 283350 1 Tablet(s) PO TID 12/26/2018 01/04/2019 Inactive Augmentin 500 mg-125 mg tablet RxNorm: 058410 1 Tablet(s) PO TID 12/26/2018 12/25/2018 Inactive ProAir HFA 90 mcg/actuation aerosol inhaler RxNorm: 0517191 2 Puff(s) INH QID as needed 11/18/2018 No Stop Date Active Lyrica 50 mg capsule RxNorm: 854579 Capsule(s) PO daily 201802/07/2019 Inactive Cymbalta 30 mg capsule,delayed release RxNorm: 161927 1 Capsule(s) PO QAM 11/13/2018 02/18/2019 Inactive Lyrica 50 mg capsule RxNorm: 456570 Capsule(s) PO daily 201811/12/2018 Inactive Symbicort 160 mcg-4.5 mcg/actuation HFA aerosol inhaler RxNorm: 2266674 2 Puff(s) INH BID 11/12/2018 12/11/2018 Inactive albuterol sulfate 2.5 mg/3 mL (0.083 %) solution for nebulization RxNorm: 086280 3 Milliliter(s) INH UD 11/07/2018 No Stop Date Active azithromycin 500 mg tablet RxNorm: 613141 500mg on day 1 then 250 mg daily x 4 more day Tablet(s) PO 11/07/20182018 Inactive 500mg on day 1 and then 250mg daily 2-4 cefdinir 300 mg capsule RxNorm: 021634 1 Capsule(s) PO BID 01/201911/06/2018 Inactive azithromycin 500 mg tablet RxNorm: 376841 500mg on day 1 then 250 mg daily x 4 more day Tablet(s) PO 11/07/20182018 Inactive 500mg on day 1 and then 250mg daily 2-4 cefdinir 300 mg capsule RxNorm: 439386 1 Capsule(s) PO BID 01/201911/13/2018 Inactive Levaquin 500 mg tablet RxNorm: 903701 1 Tablet(s) PO daily TAKE ONE TABLET BY MOUTH DAILY UNTIL GONE 10/31/20182018 Inactive Levaquin 500 mg tablet RxNorm: 158720 1 Tablet(s) PO daily 11/12/2018 Inactive valsartan 80 mg tablet RxNorm: 722429 1/2 Tablet(s) PO daily 04/20/2019 Active doxycycline hyclate 100 mg tablet RxNorm: 6063605 1 Tablet(s) PO BID 10/21/2018 10/27/2018 Inactive ketorolac 60 mg/2 mL intramuscular solution RxNorm: 1002962 Milliliter(s) IM 10/21/2018 10/21/2018 Inactive Levaquin 500 mg tablet RxNorm: 070658 1 Tablet(s) PO daily 10/31/2018 Inactive Tessalon Perles 100 mg capsule RxNorm: 645263 1-2 Capsule(s) PO TID PRN 10/14/2018 No Stop Date Active albuterol sulfate 2.5 mg/3 mL (0.083 %) solution for nebulization RxNorm: 494412 3 Milliliter(s) INH UD 10/14/201812/2018 Inactive Levaquin 500 mg tablet RxNorm: 309988 1 Tablet(s) PO daily 08/201810/16/2018 Inactive albuterol sulfate 2.5 mg/3 mL (0.083 %) solution for nebulization RxNorm: 825083 3 Milliliter(s) INH UD 09/30/201807/2018 Inactive Kenalog 40 mg/mL suspension for injection RxNorm: 3594310 1.5 Milliliter(s) Inj 09/30/2018 09/30/2018 Inactive Coreg 6.25 mg tablet RxNorm: 686301 TAKE ONE TABLET BY MOUTH TWICE A DAY 09/30/2018 02/18/2019 Inactive Keflex 500 mg capsule RxNorm: 854805 1 Capsule(s) PO TID 201710/03/2018 Inactive prednisone 20 mg tablet RxNorm: 356823 2 Tablet(s) PO daily 09/29/2018 Inactive Kenalog 40 mg/mL suspension for injection RxNorm: 5162486 Milliliter(s) Inj 09/11/2018 09/11/2018 Inactive Zyrtec 10 mg tablet RxNorm: 6249351 1 Tablet(s) PO daily 09/0910/08/2018 Inactive Keflex 500 mg capsule RxNorm: 816106 1 Capsule(s) PO TID 201709/15/2018 Inactive Tresiba FlexTouch U-200 insulin 200 unit/mL (3 mL) subcutaneous pen RxNorm: 6343843 50 Unit(s) SQ daily 08/30/2018 08/29/2018 Inactive please give him 30 day supply Tresiba FlexTouch U-200 insulin 200 unit/mL (3 mL) subcutaneous pen RxNorm: 4689306 50 Unit(s) SQ daily 08/30/2018 09/28/2018 Inactive please give him 30 day supply Novolog Flexpen U-100 Insulin aspart 100 unit/mL subcutaneous RxNorm: 1740897 8 Unit(s) SQ AC 08/13/2018 No Stop Date Active Novolog Flexpen U-100 Insulin aspart 100 unit/mL subcutaneous RxNorm: 0501900 8 Unit(s) SQ AC 07/22/20182017 Inactive this is an update on his medication Novolog Flexpen U-100 Insulin aspart 100 unit/mL subcutaneous RxNorm: 2565991 12 Unit(s) SQ AC 07/05/20182017 Inactive this is an update on his medication Toujeo SoloStar U-300 Insulin 300 unit/mL (1.5 mL) subcutaneous pen RxNorm: 6135989 INJECT 50 UNITS UNDER THE SKIN DAILY 07/01/2018 08/29/2018 Inactive Mucinex 600 mg tablet, extended release RxNorm: 248535 1 Tablet(s) PO BID 06/28/2018 07/04/2018 Inactive Zofran 4 mg tablet RxNorm: 800438 1 Tablet(s) PO TID as needed nausea 06/28/2018 07/02/2018 Inactive Kenalog 40 mg/mL suspension for injection RxNorm: 1440864 Milliliter(s) Inj 06/28/2018 06/28/2018 Inactive Flonase Allergy Relief 50 mcg/actuation nasal spray, suspension RxNorm: 2507366 1 [place] NASAL BID 06/28/20182017 Inactive Lyrica 50 mg capsule RxNorm: 903542 Capsule(s) PO daily 201707/06/2018 Inactive Novolog Flexpen U-100 Insulin aspart 100 unit/mL subcutaneous RxNorm: 5582097 10 Unit(s) SQ AC 06/18/20182017 Inactive this is an update on his medication Lasix 20 mg tablet RxNorm: 119896 1 Tablet(s) PO BIW 201707/02/2018 Inactive atorvastatin 80 mg tablet RxNorm: 431159 1 Tablet(s) PO QHS 04/201812/06/2018 Inactive clonazepam 1 mg tablet RxNorm: 292286 2 Tablet(s) PO HS as needed 06/10/2018 06/08/2018 Inactive clonazepam 1 mg tablet RxNorm: 808098 2 Tablet(s) PO HS 201702/17/2019 Inactive Lyrica 50 mg capsule RxNorm: 150969 Capsule(s) PO daily 201707/08/2018 Inactive Lasix 20 mg tablet RxNorm: 173769 1 Tablet(s) PO TIW 201706/11/2018 Inactive Toujeo SoloStar U-300 Insulin 300 unit/mL (1.5 mL) subcutaneous pen RxNorm: 1232921 50 Unit(s) SQ daily 05/07/2018 06/30/2018 Inactive meloxicam 15 mg tablet RxNorm: 774732 15 Milligram(s) PO daily 05/02/2018 05/12/2018 Inactive ketorolac 30 mg/mL injection solution RxNorm: 173673 2 Milliliter(s) Inj 05/02/2018 05/02/2018 Inactive Toujeo SoloStar U-300 Insulin 300 unit/mL (1.5 mL) subcutaneous pen RxNorm: 6717933 45 Unit(s) daily 04/29/2018 Inactive clonazepam 1 mg tablet RxNorm: 673132 1 Tablet(s) PO Q8 as needed 04/29/2018 06/09/2018 Inactive doxycycline hyclate 100 mg tablet RxNorm: 5786033 1 Tablet(s) PO BID 04/29/2018 05/12/2018 Inactive Cymbalta 30 mg capsule,delayed release RxNorm: 394450 1 Capsule(s) PO QAM 03/13/2018 10/08/2018 Inactive Lexapro 10 mg tablet RxNorm: 757294 1 Tablet(s) PO QPM 201703/03/2018 Inactive Toujeo SoloStar U-300 Insulin 300 unit/mL (1.5 mL) subcutaneous pen RxNorm: 6018627 20 Unit(s) daily 02/28/2018 Inactive Protonix 40 mg tablet,delayed release RxNorm: 272119 1 Tablet(s) PO daily 01/29/2018 06/09/2018 Inactive clonazepam 1 mg tablet RxNorm: 387411 1 Tablet(s) PO Q8 as needed 12/12/2017 03/10/2018 Inactive Tamiflu 75 mg capsule RxNorm: 684917 1 Capsule(s) PO BID 201712/03/2017 Inactive doxycycline hyclate 100 mg capsule RxNorm: 3327968 1 Capsule(s) PO BID 09/07/2017 09/20/2017 Inactive doxycycline hyclate 100 mg capsule RxNorm: 8777064 1 Capsule(s) PO BID 08/27/2017 09/06/2017 Inactive prednisone 20 mg tablet RxNorm: 290702 2 Tablet(s) PO daily 08/31/2017 Inactive clopidogrel 75 mg tablet RxNorm: 953517 1 Tablet(s) PO daily 06/09/2018 Inactive atorvastatin 40 mg tablet RxNorm: 858190 1 Tablet(s) PO QHS 02/27/2018 Inactive losartan 25 mg tablet RxNorm: 404248 TAKE ONE TABLET BY MOUTH DAILY 08/22/2017 06/09/2018 Inactive Toujeo SoloStar 300 unit/mL (1.5 mL) subcutaneous insulin pen RxNorm: 8990380 45 Unit(s) daily 08/17/2017 08/20/2017 Inactive mupirocin 2 % topical ointment RxNorm: 683177 1 Application TOP TID to the lesions on chest 08/16/2017 08/25/2017 Inactive Toujeo SoloStar 300 unit/mL (1.5 mL) subcutaneous insulin pen RxNorm: 9416710 40 Unit(s) daily 08/16/2017 08/16/2017 Inactive valacyclovir 1 gram tablet RxNorm: 035867 1 Tablet(s) PO TID 08/01/2017 Inactive clonazepam 1 mg tablet RxNorm: 728062 1 Tablet(s) PO Q8 as needed 07/03/2017 09/30/2017 Inactive Levaquin 500 mg tablet RxNorm: 794981 1 Tablet(s) PO daily 06/25/2017 Inactive Levaquin 500 mg tablet RxNorm: 232387 1 Tablet(s) PO daily 06/21/2017 Inactive losartan 25 mg tablet RxNorm: 797148 1 Tablet(s) PO daily 201608/16/2017 Inactive nystatin 100,000 unit/mL oral suspension RxNorm: 259736 5 Milliliter(s) PO QID Swish et swallow 06/18/2017 06/17/2017 Inactive nystatin 100,000 unit/mL oral suspension RxNorm: 193301 5 Milliliter(s) PO QID Swish et swallow 06/18/2017 06/27/2017 Inactive Cipro 500 mg tablet RxNorm: 182932 1 Tablet(s) PO BID 201606/18/2017 Inactive Cipro 500 mg tablet RxNorm: 754750 1 Tablet(s) PO BID 201606/11/2017 Inactive Toujeo SoloStar 300 unit/mL (1.5 mL) subcutaneous insulin pen RxNorm: 6932046 INJECT 10 UNITS UNDER THE SKIN DAILY 06/12/2017 08/15/2017 Inactive Keflex 500 mg capsule RxNorm: 167008 1 Capsule(s) PO TID 201606/13/2017 Inactive doxycycline hyclate 100 mg capsule RxNorm: 2895429 1 Capsule(s) PO BID 05/17/2017 05/21/2017 Inactive doxycycline hyclate 100 mg capsule RxNorm: 8280130 1 Capsule(s) PO BID 05/11/2017 05/16/2017 Inactive losartan 25 mg tablet RxNorm: 241209 1 Tablet(s) PO daily 201606/17/2017 Inactive atorvastatin 40 mg tablet RxNorm: 271032 1 Tablet(s) PO daily 03/01/2017 08/23/2017 Inactive clopidogrel 75 mg tablet RxNorm: 556235 1 Tablet(s) PO daily 08/23/2017 Inactive Flonase Allergy Relief 50 mcg/actuation nasal spray, suspension RxNorm: 1663132 2 [place] NASAL daily 02/16/20172016 Inactive Augmentin 875 mg-125 mg tablet RxNorm: 412375 1 Tablet(s) PO BID 02/16/2017 02/22/2017 Inactive GET PROBIOTIC TO TAKE WHILE ON ABX Tamiflu 75 mg capsule RxNorm: 969238 1 Capsule(s) PO BID 201602/20/2017 Inactive ceftriaxone 500 mg solution for injection RxNorm: 0797542 1 Milliliter(s) Inj 02/16/2017 02/16/2017 Inactive Kenalog 40 mg/mL suspension for injection RxNorm: 4867179 1 Milliliter(s) Inj 02/16/2017 02/16/2017 Inactive Toujeo SoloStar 300 unit/mL (1.5 mL) subcutaneous insulin pen RxNorm: 6576503 25 Unit(s) SQ QAM 02/12/2017 06/10/2017 Inactive Toujeo SoloStar 300 unit/mL (1.5 mL) subcutaneous insulin pen RxNorm: 5710910 10 Unit(s) SQ QAM 02/05/2017 02/11/2017 Inactive lisinopril 10 mg tablet RxNorm: 635092 1 Tablet(s) PO daily 02/28/2017 Inactive atorvastatin 40 mg tablet RxNorm: 611554 1 Tablet(s) PO daily 02/01/2017 02/28/2017 Inactive doxycycline hyclate 100 mg capsule RxNorm: 0746519 1 Capsule(s) PO BID 02/01/2017 02/10/2017 Inactive clonazepam 1 mg tablet RxNorm: 362157 1 Tablet(s) PO Q8 as needed 10/09/2016 01/05/2017 Inactive ceftriaxone 1 gram solution for injection RxNorm: 7389879 Inj 10/06/2016 10/06/2016 Inactive cyclobenzaprine 10 mg tablet RxNorm: 991889 1/2-1 Tablet(s) PO TID PRN 07/18/2016 01/28/2017 Inactive clonazepam 1 mg tablet RxNorm: 129705 1 Tablet(s) PO Q8 as needed 05/31/2016 05/29/2016 Inactive clonazepam 1 mg tablet RxNorm: 894048 1 Tablet(s) PO Q8 as needed 05/31/2016 08/28/2016 Inactive Toujose SoloStar 300 unit/mL (1.5 mL) subcutaneous insulin pen RxNorm: 7122615 10 Unit(s) SQ daily 05/23/2016 01/28/2017 Inactive Crestor 10 mg tablet RxNorm: 723044 1 Tablet(s) PO QHS 201501/28/2017 Inactive Crestor 10 mg tablet RxNorm: 824948 1 Tablet(s) PO QHS 201505/18/2016 Inactive clonazepam 1 mg tablet RxNorm: 796564 1 Tablet(s) PO Q8 as needed 04/25/2016 05/30/2016 Inactive prednisone 20 mg tablet RxNorm: 983227 3 Tablet(s) PO daily 06/201602/10/2016 Inactive prednisone 20 mg tablet RxNorm: 756600 3 Tablet(s) PO daily 06/201605/14/2016 Inactive Kenalog 40 mg/mL suspension for injection RxNorm: 7097663 Milliliter(s) Inj 01/20/2016 01/20/2016 Inactive aspirin 81 mg tablet,delayed release RxNorm: 552831 1 Tablet(s) PO daily No Start Date Active Brilinta 90 mg tablet RxNorm: 8226990 1 Tablet(s) PO BID No Start Date Active acetaminophen 500 mg tablet RxNorm: 741693 1-2 Tablet(s) PO as needed No Start Date Active clopidogrel 75 mg tablet RxNorm: 349796 1 Tablet(s) PO daily No Start Date 02/28/2017 Inactive Novolog Flexpen U-100 Insulin aspart 100 unit/mL subcutaneous RxNorm: 0251675 5 units with breakfast lunch and 10 supper Unit(s) SQ No Start Date 06/17/2018 Inactive clonazepam 1 mg tablet RxNorm: 904371 1 Tablet(s) PO QHS No Start Date 04/24/2016 Inactive Coreg 6.25 mg tablet RxNorm: 712567 1 Tablet(s) PO BID No Start Date 09/29/2018 Inactive acyclovir 400 mg tablet RxNorm: 057439 2 Tablet(s) PO 5x daily No Start Date 02/28/2017 Inactive Lyrica 50 mg capsule RxNorm: 810076 Capsule(s) PO BID No Start Date 06/09/2018 Inactive Vraylar 3 mg capsule RxNorm: 6498456 1 Capsule(s) PO daily No Start Date 03/12/2018 Inactive valsartan 80 mg tablet RxNorm: 946782 1 Tablet(s) PO daily No Start Date 10/22/2018 Inactive Medication Administered Medication Codes Instructions Start Date Status ketorolac 60 mg/2 mL intramuscular solution RxNorm: 3400829 Milliliter 10/21/2018 No longer Active Kenalog 40 mg/mL suspension for injection RxNorm: 6164845 1.5Milliliter 09/30/2018 No longer Active Kenalog 40 mg/mL suspension for injection RxNorm: 4610000 Milliliter 09/11/2018 No longer Active Kenalog 40 mg/mL suspension for injection RxNorm: 3911361 Milliliter 06/28/2018 No longer Active ketorolac 30 mg/mL injection solution RxNorm: 308352 2Milliliter 05/02/2018 No longer Active ceftriaxone 500 mg solution for injection RxNorm: 6583100 1Milliliter 02/16/2017 No longer Active Kenalog 40 mg/mL suspension for injection RxNorm: 9180037 1Milliliter 02/16/2017 No longer Active ceftriaxone 1 gram solution for injection RxNorm: 8562799 10/06/2016 No longer Active Kenalog 40 mg/mL suspension for injection RxNorm: 8183826 Milliliter 01/20/2016 No longer Active Immunizations Vaccine Codes Date Status Influenza CVX: 141 07/22/2018 completed Influenza CVX: 141 08/16/2017 completed Assessments Condition Codes Effective Dates 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-10: I95.2 ICD-9: 458.8 02/27/2019 Other fatigue ICD-10: R53.83 ICD-9: 780.79 02/17/2019 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-10: I25.10 [...] Item Item Code Result Date Culture Sputum 907414 LOWER RESPIRATORY TRACT CULTURE SEE NOTES 11/14/2018 Culture Sputum 254563 LOWER RESPIRATORY TRACT CULTURE SEE NOTES 10/16/2018 LIPID GRP [id number] CHOLESTEROL TNP:Duplicate Order 09/10/2018 LIPID GRP Triglyceride TNP:Duplicate Order 2017 LIPID GRP HDL CHOLESTEROL TNP:Duplicate Order 2017 LIPID GRP 0901217 Chol/HDL Ratio TNP:Duplicate Order 2017 LIPID GRP LDL Cholesterol TNP:Duplicate Order 2017 A1C HPLC 0319505 Hgb A1c 35381-6 TNP:Duplicate Order 2017 C Diff An [id number] GDH TNP:Lab Request 06/22/2018 C Diff An [id number] Toxin A/B TNP:Lab Request 06/22/2018 C Diff An [id number] C Diff Analyzer TNP:Lab Request 2017 C Diff An [id number] IC OK? TNP:Lab Request 06/22/2018 CBC 0628107 WBC 6.4 10e9/L 05/02/2018 CBC 5307641 RBC 5.60 10e12/L 05/02/2018 CBC 8747927 HEMOGLOBIN 17.0 g/dL 05/02/2018 CBC 8999009 HEMATOCRIT 48.0 % 05/02/2018 CBC 0173009 MCV 85.7 fL 05/02/2018 CBC 6103188 MCH 30.4 pg 05/02/2018 CBC 3276614 MCHC 35.4 g/dL 05/02/2018 CBC 8499096 PLATELET COUNT 166 10e9/L 05/02/2018 CBC 5840151 Mean Plt Volume 11.6 fL 05/02/2018 CBC 2128323 Neut Auto 48.6 % 05/02/2018 CBC 2265093 Lymph Auto 41.7 % 05/02/2018 CBC 4154029 [place] Auto 8.1 % 05/02/2018 CBC 2410653 RDW 13.1 % 05/02/2018 CBC 6983442 Eos Auto 1.1 % 05/02/2018 CBC 5512858 Baso Auto 0.5 % 05/02/2018 CBC 4022926 Neutrophil Abs 3.11 10e9/L 05/02/2018 CBC 1608037 Lymphocyte Abs 2.67 10e9/L 05/02/2018 CBC 5472196 Monocyte Abs 0.52 10e9/L 05/02/2018 CBC 5521169 Eosinophil Abs 0.07 10e9/L 05/02/2018 CBC 3608901 RDW-SD 40.0 fL 05/02/2018 CBC 0740242 Basophil Abs 0.03 10e9/L 05/02/2018 CHEM 14 7461156 AST 17 U/L 05/02/2018 CHEM 14 7584399 ALT 17 U/L 05/02/2018 CHEM 14 5340886 BUN 17 mg/dL 05/02/2018 CHEM 14 0600033 ALBUMIN 4.0 g/dL 05/02/2018 CHEM 14 8096432 CHLORIDE 97 mmol/L 05/02/2018 CHEM 14 9829165 Bili Total 0.9 mg/dL 05/02/2018 CHEM 14 2810943 ALK PHOS 67 U/L 05/02/2018 CHEM 14 7576412 SODIUM 135 mmol/L 05/02/2018 CHEM 14 7058373 CREATININE 1.18 mg/dL 05/02/2018 CHEM 14 0614975 CALCIUM 9.4 mg/dL 05/02/2018 CHEM 14 5681097 POTASSIUM 4.4 mmol/L 05/02/2018 CHEM 14 3602003 TOTAL PROTEIN 6.9 g/dL 05/02/2018 CHEM 14 5446817 GLUCOSE 316 mg/dL 05/02/2018 CHEM 14 5232834 Bicarbonate 29 mmol/L 05/02/2018 CHEM 14 9580166 AGAP 9 mmol/L 05/02/2018 MEAN GLUC 8647702 Calc Mean Gluc 283 mg/dL 05/02/2018 A1C HPLC 8458139 Hgb A1c 87935-1 11.5 % 05/02/2018 GFR CALC 8176656 GFR Non Afr Amr >60 mL/min 05/02/2018 GFR CALC 7610279 GFR Afr Amr >60 mL/min 05/02/2018 JI Gold 6978086 JIC Gold Complete 02/28/2018 GFR CALC 3843375 GFR Non Afr Amr >60 mL/min 02/28/2018 GFR CALC 4936753 GFR Afr Amr >60 mL/min 02/28/2018 UA W/CII 5589898 UA Urine Appear Normal 02/28/2018 UA W/CII 3262921 UA Protein 1+ 02/28/2018 UA W/CII 3815556 UA Hemoglobin Negative 02/28/2018 UA W/CII 0052295 UA Glucose 4+ 02/28/2018 UA W/CII 5527669 UA Ketones Trace 02/28/2018 UA W/CII 1422292 UA pH 5.5 02/28/2018 UA W/CII 4901938 U Spec [place] 1.015 02/28/2018 UA W/CII 7261661 UA Bilirubin Negative 02/28/2018 UA W/CII 8832687 UA Nitrite NEG 02/28/2018 UA W/CII 5294860 UA Leuk Esteras Negative 02/28/2018 MICR 6448510 UA WBC/hpf 1 02/28/2018 MICR 8278716 UA RBC hpf 2 02/28/2018 MICR 5898183 UA WBC auto 3.8 /uL 02/28/2018 MICR 0897961 UA RBC auto 12.2 /uL 02/28/2018 MICR 4235299 UA SQ EPI auto 2.3 /uL 02/28/2018 MICR 6473501 UA H Cast auto 0.10 /uL 02/28/2018 CBC 5874687 WBC 6.4 10e9/L 02/28/2018 CBC 4760004 RBC 5.51 10e12/L 02/28/2018 CBC 8100984 HEMOGLOBIN 16.7 g/dL 02/28/2018 CBC 6853334 HEMATOCRIT 46.9 % 02/28/2018 CBC 6588255 MCV 85.1 fL 02/28/2018 CBC 3410268 MCH 30.3 pg 02/28/2018 CBC 1702059 MCHC 35.6 g/dL 02/28/2018 CBC 3394624 PLATELET COUNT 173 10e9/L 02/28/2018 CBC 3117207 Mean Plt Volume 11.6 fL 02/28/2018 CBC 2373053 Neut Auto 51.8 % 02/28/2018 CBC 4283647 Lymph Auto 39.9 % 02/28/2018 CBC 3519651 [place] Auto 7.3 % 02/28/2018 CBC 1425292 RDW 13.3 % 02/28/2018 CBC 7867991 Eos Auto 0.8 % 02/28/2018 CBC 3382715 Baso Auto 0.2 % 02/28/2018 CBC 1974032 Neutrophil Abs 3.32 10e9/L 02/28/2018 CBC 6549269 Lymphocyte Abs 2.55 10e9/L 02/28/2018 CBC 0170019 Monocyte Abs 0.47 10e9/L 02/28/2018 CBC 0836553 Eosinophil Abs 0.05 10e9/L 02/28/2018 CBC 8768323 RDW-SD 40.8 fL 02/28/2018 CBC 1504901 Basophil Abs 0.01 10e9/L 02/28/2018 CHEM 14 7939197 AST 17 U/L 02/28/2018 CHEM 14 7158527 ALT 17 U/L 02/28/2018 CHEM 14 5239037 BUN 20 mg/dL 02/28/2018 CHEM 14 2531288 ALBUMIN 4.1 g/dL 02/28/2018 CHEM 14 7623692 CHLORIDE 97 mmol/L 02/28/2018 CHEM 14 6592734 Bili Total 1.3 mg/dL 02/28/2018 CHEM 14 0607388 ALK PHOS 78 U/L 02/28/2018 CHEM 14 0916911 SODIUM 135 mmol/L 02/28/2018 CHEM 14 1168615 CREATININE 1.09 mg/dL 02/28/2018 CHEM 14 2619261 CALCIUM 9.6 mg/dL 02/28/2018 CHEM 14 5799237 POTASSIUM 3.8 mmol/L 02/28/2018 CHEM 14 4451868 TOTAL PROTEIN 7.3 g/dL 02/28/2018 CHEM 14 3922461 GLUCOSE 349 mg/dL 02/28/2018 CHEM 14 5050793 Bicarbonate 29 mmol/L 02/28/2018 CHEM 14 1432659 AGAP 9 mmol/L 02/28/2018 [place] Spotted Fever Igg/Igm 057343 FEI MT SPOTTED FEVER IGM EIA . 09/05/2017 [place] Spotted Fever Igg/Igm 102771 RMSF, IGM 0.17 index 09/05/2017 [place] Spotted Fever Igg/Igm 398197 FEI MT SPOTTED FEVER IGG EIA FLEX . 09/05/2017 [place] Spotted Fever Igg/Igm 864530 RMSF, IGG SCREEN-FLEX Positive 09/05/2017 Fie Mtn Spot'D Fev Igg 544934 RMSF, IGG -TITER IFA <1:64 11/2016 Ehrlichia Chaffeensis Antibody Igm 026938 EHRLICHIA CHAFFEENSIS IGM < 1:16 09/03/2017 Ehrlichia Chaffeensis Antibody Igg 570356 EHRLICHIA CHAFFEENSIS IGG <1:64 09/03/2017 Lymes Disease Total Antibodies With Western Blot Reflex B. BURGDORFERI, IGG/IGM 0.223 08/30/2017 [place]ymes Disease Total Antibodies With Western Blot Reflex C-Reactive Protein Qnt Crqnt CRP 0.00 mg/dl 08/27/2017 Sed Rate Ord21 ESR 8 mm/hr 08/27/2017 Comp Metabolic Mqr830 NA 135 mEq/L 08/16/2017 Comp Metabolic Qnc846 K 4.1 mEq/L 08/16/2017 Comp Metabolic Qqp388 CL 98 mEq/L 08/16/2017 Comp Metabolic Znj034 CO2 28.0 mEq/L 08/16/2017 Comp Metabolic Cqz908 ANION GAP 13 08/16/2017 Comp Metabolic Xae875 GLUCOSE 299 mg/dL 08/16/2017 Comp Metabolic Gri237 Creat 0.9 mg/dL 08/16/2017 Comp Metabolic Opu885 eGFR 90 ml/min/1.73m2 08/16/2017 Comp Metabolic Yhk710 BUN 20 mg/dL 08/16/2017 Comp Metabolic Geu621 B/C Ratio 21.5 Ratio 08/16/2017 Comp Metabolic Qkm332 CALCIUM 9.2 mg/dL 08/16/2017 Comp Metabolic Coc255 ALK PHOS 84 U/L 08/16/2017 Comp Metabolic Kfe634 AST(SGOT) 19 U/L 08/16/2017 Comp Metabolic Fct264 ALT(SGPT) 24 U/L 08/16/2017 Comp Metabolic Zyg871 BILI T 1.1 mg/dL 08/16/2017 Comp Metabolic Ajb225 ALBUMIN 4.2 g/dL 08/16/2017 Comp Metabolic Vcr157 TPRO 7.2 g/dL 08/16/2017 Comp Metabolic Sje456 GLOB 3.0 g/dL 08/16/2017 Comp Metabolic Sss008 A/G Ratio 1.4 Ratio 08/16/2017 Comp Metabolic Jaz937 Osmo 284 mOsmo 08/16/2017 %Hba1C Zuk335 % HbA1c 90576-1 12.5 % 08/16/2017 %Hba1C Poh844 Gluc Ave 312 mg/dL 08/16/2017 Urine Culture Ucult Preliminary NO Growth Day 1 06/23/2017 Urine Culture Ucult Complete NO Growth Day 2 06/23/2017 C RAP A SC [id number] Strep A Negative 06/08/2017 %Hba1C Uzx083 % HbA1c 28598-0 9.5 % 05/04/2017 %Hba1C Dbm298 Gluc Ave 226 mg/dL 05/04/2017 Tsh Ord6 [...] 31.7 pg 05/04/2017 Cbc With Differential Ord2 [place]% 8.5 % 05/04/2017 Cbc With Differential Ord2 [...] 2.48 K/ul 05/04/2017 Cbc With Differential Ord2 Mills ABS# 0.5 K/ul 05/04/2017 Cbc With Differential Ord2 Eos ABS# 0.1 K/ul 05/04/2017 Cbc With Differential Ord2 Baso ABS# 0.0 K/ul 05/04/2017 Comp Metabolic Oio294 NA 135 mEq/L 05/04/2017 Comp Metabolic Hyg977 K 4.2 mEq/L 05/04/2017 Comp Metabolic Zrn001 CL 99 mEq/L 05/04/2017 Comp Metabolic Nkn940 CO2 26.0 mEq/L 05/04/2017 Comp Metabolic Hvq081 ANION GAP 14 05/04/2017 Comp Metabolic Flr017 GLUCOSE 277 mg/dL 05/04/2017 Comp Metabolic Olr735 Creat 0.9 mg/dL 05/04/2017 Comp Metabolic Xxe735 eGFR 96 ml/min/1.73m2 05/04/2017 Comp Metabolic Qlt940 BUN 23 mg/dL 05/04/2017 Comp Metabolic Dnj589 B/C Ratio 26.1 Ratio 05/04/2017 Comp Metabolic Uwx561 CALCIUM 8.9 mg/dL 05/04/2017 Comp Metabolic Nhz850 ALK PHOS 81 U/L 05/04/2017 Comp Metabolic Fcb184 AST(SGOT) 21 U/L 05/04/2017 Comp Metabolic Hln050 ALT(SGPT) 27 U/L 05/04/2017 Comp Metabolic Vxi173 BILI T 1.2 mg/dL 05/04/2017 Comp Metabolic Edg012 ALBUMIN 4.0 g/dL 05/04/2017 Comp Metabolic Mzt517 TPRO 6.7 g/dL 05/04/2017 Comp Metabolic Eui914 GLOB 2.7 g/dL 05/04/2017 Comp Metabolic Rxd646 A/G Ratio 1.5 Ratio 05/04/2017 Comp Metabolic Ulp606 Osmo 284 mOsmo 05/04/2017 C A/B FLU [id number] Influenza A Scr Negative 02/16/2017 C A/B FLU [id number] Influenza B Scr Positive 02/16/2017 Cbc With [...] 30.3 pg 05/23/2016 Cbc With Differential Ord2 Mills% 8.8 % 05/23/2016 Cbc With Differential Ord2 [...] 2.07 K/ul 05/23/2016 Cbc With Differential Ord2 [place] ABS# 0.5 K/ul 05/23/2016 Cbc With Differential Ord2 Eos ABS# 0.1 K/ul 05/23/2016 Cbc With Differential Ord2 Baso ABS# 0.0 K/ul 05/23/2016 Lipid Ord30 CHOL 397 mg/dL 05/17/2016 Lipid Ord30 HDL 48.0 mg/dl 05/17/2016 Lipid Ord30 TRIG 578 mg/dL 05/17/2016 Lipid Ord30 LDL Unable to calculate Due to elevated triglycerides mg/dL 05/17/2016 Lipid Ord30 C/HDL 8.3 Ratio 05/17/2016 %Hba1C Jju853 % HbA1c 85584-6 12.4 % 05/16/2016 %Hba1C Hct458 Gluc Ave 309 mg/dL 05/16/2016 Cbc With [...] 30.4 pg 05/15/2016 Cbc With Differential Ord2 [place]% 7.8 % 05/15/2016 Cbc With Differential Ord2 [...] 2.04 K/ul 05/15/2016 Cbc With Differential Ord2 [place] ABS# 0.5 K/ul 05/15/2016 Cbc With Differential Ord2 Eos ABS# 0.1 K/ul 05/15/2016 Cbc With Differential Ord2 Baso ABS# 0.0 K/ul 05/15/2016 Tsh Ord6 hTSH II 1.70 uIU/mL 05/15/2016 Comp Metabolic Ccl189 NA 135 mEq/L 05/15/2016 Comp Metabolic Ysz261 K 3.9 mEq/L 05/15/2016 Comp Metabolic Xvf722 CL 96 mEq/L 05/15/2016 Comp Metabolic Rdw811 CO2 27.0 mEq/L 05/15/2016 Comp Metabolic Mhk092 ANION GAP 16 05/15/2016 Comp Metabolic Clx100 GLUCOSE 183 mg/dL 05/15/2016 Comp Metabolic Xcp791 Creat 1.1 mg/dL 05/15/2016 Comp Metabolic Zxp753 eGFR 71 ml/min/1.73m2 05/15/2016 Comp Metabolic Fuc440 BUN 17 mg/dL 05/15/2016 Comp Metabolic Mzj114 B/C Ratio 14.9 Ratio 05/15/2016 Comp Metabolic Jxg690 CALCIUM 9.6 mg/dL 05/15/2016 Comp Metabolic Qit614 ALK PHOS 100 U/L 05/15/2016 Comp Metabolic Iiz092 AST(SGOT) 20 U/L 05/15/2016 Comp Metabolic Oxu955 ALT(SGPT) 20 U/L 05/15/2016 Comp Metabolic Eme708 BILI T 1.3 mg/dL 05/15/2016 Comp Metabolic Cps146 ALBUMIN 4.6 g/dL 05/15/2016 Comp Metabolic Epv463 TPRO 8.1 g/dL 05/15/2016 Comp Metabolic Avt960 GLOB 3.5 g/dL 05/15/2016 Comp Metabolic Wmx370 A/G Ratio 1.3 Ratio 05/15/2016 Comp Metabolic Qbx532 Osmo 276 mOsmo 05/15/2016 Review of Systems [...] Codes Date URINALYSIS NONAUTO W/O SCOPE CPT-4: 79502 02/17/2019 KETOROLAC TROMETHAMINE INJ CPT-4: J1885 10/21/2018 TRIAMCINOLONE ACET INJ NOS CPT-4: J3301 09/30/2018 THER/PROPH/DIAG INJ SC/IM CPT-4: 34503 09/11/2018 TRIAMCINOLONE ACET INJ NOS CPT-4: J3301 09/11/2018 IMMUNIZATION ADMIN CPT -4: 39764 07/22/2018 FLU VAC NO PRSV 4 MENA 3 YRS+ CPT-4: 12377 07/22/2018 TRIAMCINOLONE ACET INJ NOS CPT-4: J3301 06/28/2018 KETOROLAC TROMETHAMINE INJ CPT-4: J1885 05/02/2018 FLU VAC NO PRSV 4 MENA 3 YRS+ CPT-4: 63182 08/16/2017 IMMUNIZATION ADMIN CPT -4: 31231 08/16/2017 URINALYSIS NONAUTO W/O SCOPE CPT-4: 15512 06/21/2017 TRIAMCINOLONE ACET INJ NOS CPT-4: J3301 05/04/2017 THER/PROPH/DIAG INJ SC/IM CPT-4: 85714 05/04/2017 TRIAMCINOLONE ACET INJ NOS CPT-4: J3301 02/16/2017 ROCEPHIN, PER 250 MG CPT-4: J0696 02/16/2017 ROCEPHIN, PER 250 MG CPT-4: J0696 10/06/2016 URINALYSIS NONAUTO W/O SCOPE CPT-4: 16193 07/18/2016 TRIAMCINOLONE ACET INJ NOS CPT-4: J3301 01/20/2016 Vital Signs Date Vital 02/27/2019 Blood Pressure 1: 110/80 Code : 8480-6 BMI: 33.0 Code : 21180-5 Heart Rate 1 : 89 bpm Height: 6'2" SpO2: 95% Weight: 257 lbs 02/17/2019 Blood Pressure 1: 120/80 Code : 8480-6 Blood Pressure 2: 102/80 Code: 8480-6 Heart Rate 1: 89 bpm SpO2: 96% 01/13/2019 Blood Pressure 1: 120/70 Code : 8480-6 BMI: 34.2 Code : 52985-8 Heart Rate 1 : 74 bpm Height: 6'2" SpO2: 96% Weight: 266 lbs 12/31/2018 Blood Pressure 1: 122/70 Code : 8480-6 BMI: 34.4 Code : 51644-3 Heart Rate 1 : 90 bpm Height: 6'2" SpO2: 97% Temperature: 36.6 (C) / 97.8 (F) Weight: 268 lbs 12/26/2018 Blood Pressure 1: 118/72 Code : 8480-6 BMI: 34.4 Code : 94566-1 Heart Rate 1 : 82 bpm Height: 6'2" SpO2: 98% Temperature: 36.6 (C) / 97.9 (F) Weight: 268 lbs 11/18/2018 Blood Pressure 1: 120/84 Code : 8480-6 BMI: 33.9 Code : 87604-8 Heart Rate 1 : 77 bpm Height: 6'2" SpO2: 99% Temperature: 36.7 (C) / 98.1 (F) Weight: 264 lbs 11/12/2018 Blood Pressure 1: 138/76 Code : 8480-6 BMI: 33.9 Code : 88968-1 Heart Rate 1 : 91 bpm Height: 6'2" SpO2: 99% Weight: 264 lbs 10/30/2018 Blood Pressure 1: 130/72 Code : 8480-6 BMI: 33.3 Code : 29728-0 Heart Rate 1 : 83 bpm Height: 6'2" SpO2: 95% Temperature: 36.5 (C) / 97.7 (F) Weight: 259 lbs 10/24/2018 Blood Pressure 1: 130/70 Code : 8480-6 Heart Rate 1: 95 bpm Height: 6'2" SpO2: 96% 10/23/2018 Blood Pressure 1: 100/70 Code : 8480-6 Blood Pressure 2: 102/70 Code: 8480-6 BMI: 33.3 Code: 90034-6 Heart Rate 1: 106 bpm Height: 6'2" SpO2: 98% Weight: 259 lbs 10/21/2018 Blood Pressure 1: 140/90 Code : 8480-6 BMI: 32.9 Code : 23678-9 Heart Rate 1 : 96 bpm Height: 6'2" SpO2: 92% Weight: 256 lbs 10/17/2018 Blood Pressure 1: 110/68 Code : 8480-6 BMI: 32.9 Code : 02659-7 Heart Rate 1 : 82 bpm Height: 6'2" SpO2: 97% Weight: 256 lbs 10/14/2018 Blood Pressure 1: 124/70 Code : 8480-6 BMI: 33.6 Code : 11100-4 Heart Rate 1 : 76 bpm Height: 6'2" SpO2: 99% Temperature: 36.3 (C) / 97.3 (F) Weight: 262 lbs 09/30/2018 Blood Pressure 1: 138/82 Code : 8480-6 BMI: 33.6 Code : 91559-1 Heart Rate 1 : 82 bpm Height: 6'2" SpO2: 98% Temperature: 36.3 (C) / 97.3 (F) Weight: 262 lbs 09/09/2018 Blood Pressure 1: 140/80 Code : 8480-6 BMI: 33.0 Code : 60161-6 Heart Rate 1 : 97 bpm Height: 6'2" SpO2: 93% Temperature: 36.8 (C) / 98.2 (F) Weight: 257 lbs 07/22/2018 Blood Pressure 1: 120/78 Code : 8480-6 BMI: 31.6 Code : 67794-6 Heart Rate 1 : 87 bpm Height: 6'2" SpO2: 98% Weight: 246 lbs 07/16/2018 Blood Pressure 1: 132/74 Code : 8480-6 BMI: 31.2 Code : 73621-4 Heart Rate 1 : 90 bpm Height: 6'2" SpO2: 96% Weight: 243 lbs 07/01/2018 Blood Pressure 1: 142/82 Code : 8480-6 BMI: 31.8 Code : 72867-0 Heart Rate 1 : 88 bpm Height: 6'2" SpO2: 98% Weight: 248 lbs 06/28/2018 Blood Pressure 1: 132/76 Code : 8480-6 BMI: 31.8 Code : 25747-1 Heart Rate 1 : 107 bpm Height: 6'2" SpO2: 98% Temperature: 37.9 (C) / 100.3 (F) Weight: 248 lbs 06/18/2018 Blood Pressure 1: 138/82 Code : 8480-6 BMI: 31.8 Code : 89928-7 Heart Rate 1 : 82 bpm Height: 6'2" SpO2: 97% Weight: 248 lbs 06/04/2018 Blood Pressure 1: 128/84 Code : 8480-6 BMI: 33.9 Code : 02216-7 Heart Rate 1 : 86 bpm Height: 6'2" SpO2: 95% Weight: 264 lbs 05/13/2018 Blood Pressure 1: 130/80 Code : 8480-6 BMI: 31.1 Code : 95980-0 Heart Rate 1 : 100 bpm Height: 6'2" SpO2: 94% Weight: 242 lbs 05/02/2018 Blood Pressure 1: 134/84 Code : 8480-6 BMI: 31.2 Code : 50178-9 Heart Rate 1 : 93 bpm Height: 6'2" SpO2: 98% Weight: 243 lbs 04/29/2018 Blood Pressure 1: 142/88 Code : 8480-6 BMI: 31.6 Code : 87388-3 Heart Rate 1 : 96 bpm Height: 6'2" SpO2: 96% Temperature: 36.7 (C) / 98.1 (F) Weight: 246 lbs 03/13/2018 Blood Pressure 1: 120/76 Code : 8480-6 BMI: 30.9 Code : 31980-9 Heart Rate 1 : 112 bpm Height: 6'2" SpO2: 97% Weight: 241 lbs 03/07/2018 Blood Pressure 1: 108/78 Code : 8480-6 BMI: 30.0 Code : 52213-6 Heart Rate 1 : 87 bpm Height: 6'2" SpO2: 98% Weight: 234 lbs 02/28/2018 Blood Pressure 1: 106/74 Code : 8480-6 BMI: 30.0 Code : 42579-4 Heart Rate 1 : 101 bpm Height: 6'2" SpO2: 98% Temperature: 36.4 (C) / 97.5 (F) Weight: 234 lbs 02/13/2018 Blood Pressure 1: 110/78 Code : 8480-6 BMI: 30.0 Code : 14607-4 Heart Rate 1 : 106 bpm Height: 6'2" SpO2: 98% Weight: 234 lbs 01/29/2018 Blood Pressure 1: 106/68 Code : 8480-6 BMI: 30.0 Code : 97819-4 Heart Rate 1 : 108 bpm Height: 6'2" SpO2: 98% Weight: 234 lbs 08/27/2017 Blood Pressure 1: 134/76 Code : 8480-6 Heart Rate 1: 98 bpm Height: SpO2: 97% Weight: 08/16/2017 Blood Pressure 1: 128/80 Code : 8480-6 BMI: 32.0 Code : 33949-4 Heart Rate 1 : 94 bpm Height: [...] Code : 8480-6 BMI: 31.8 Code : 11466-5 Heart Rate 1 : 102 bpm Height: [...] Code : 8480-6 BMI: 31.8 Code : 49582-0 Heart Rate 1 : 85 bpm Height: 6'2" SpO2: 96% Temperature: 36.6 (C) / 97.9 (F) Weight: 248 lbs 02/12/2017 Blood Pressure 1: 126/76 Code : 8480-6 BMI: 31.8 Code : 33306-4 Heart Rate 1 : 106 bpm Height: 6'2" SpO2: 91% Weight: 248 lbs 02/05/2017 Blood Pressure 1: 146/86 Code : 8480-6 BMI: 31.9 Code : 53497-8 Heart Rate 1 : 98 bpm Height: 6'2" SpO2: 87% Temperature: 36.7 (C) / 98.0 (F) Weight: 248 lbs 8 01/29/2017 Blood Pressure 1: 132/84 Code : 8480-6 BMI: 31.8 Code : 84303-5 Heart Rate 1 : 83 bpm Height: 6'2" SpO2: 97% Weight: 248 lbs 10/13/2016 Blood Pressure 1: 128/72 Code : 8480-6 Heart Rate 1: 86 bpm SpO2: 94% 10/09/2016 Blood Pressure 1: 128/68 Code : 8480-6 Heart Rate 1: 136 bpm SpO2: 94% Temperature: 36.8 (C) / 98.2 (F) 10/06/2016 Blood Pressure 1: 140/80 Code : 8480-6 BMI: 32.1 Code : 88170-8 Heart Rate 1 : 94 bpm Height: 6'2" SpO2: 95% Weight: 250 lbs 07/18/2016 Blood Pressure 1: 128/86 Code : 8480-6 BMI: 32.1 Code : 77560-5 Heart Rate 1 : 89 bpm Height: 6'2" SpO2: 96% Weight: 250 lbs 06/22/2016 Blood Pressure 1: 118/70 Code : 8480-6 BMI: 32.1 Code : 62341-1 Heart Rate 1 : 70 bpm Height: 6'2" SpO2: 97% Weight: 250 lbs 05/23/2016 Blood Pressure 1: 128/80 Code : 8480-6 BMI: 32.1 Code : 34629-2 Heart Rate 1 : 76 bpm Height: 6'2" SpO2: 98% Weight: 250 lbs 05/15/2016 Blood Pressure 1: 110/90 Code : 8480-6 BMI: 31.3 Code : 98787-9 Heart Rate 1 : 111 bpm Height: 6'2" SpO2: 97% Temperature: 36.6 (C) / 97.8 (F) Weight: 244 lbs 01/20/2016 Blood Pressure 1: 128/76 Code : 8480-6 BMI: 33.0 Code : 39434-3 Heart Rate 1 : 103 bpm Height: [...] data Encounters Encounter Performer Location Codes Date ([id number]) 68059 EST. PATIENT, LEVEL III Diagnosis: Hypotension due to drugs[ICD10: I95.2] Marcela Ha MD, [facility] CPT-4: 78908 02/27/2019 ([id number]) 69409 EST. PATIENT, LEVEL III Diagnosis: Hypotension due to drugs[ICD10: I95.2] Diagnosis: Other fatigue[ICD10: R53.83] Marcela Ha MD, [facility] CPT-4: 95844 02/17/2019 ([id number]) 40915 EST. 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 PATIENT, LEVEL IV Diagnosis: Type 2 diabetes mellitus with hyperglycemia[ICD10: E11.65] Diagnosis: Epigastric pain[ICD10: R10.13] Diagnosis: Pain in joints of right hand[ICD10: M25.541] Diagnosis: Shortness of breath[ICD10: R06.02] Marcela Ha MD, [facility] CPT-4: 53196 12/31/2018 03147 EST. PATIENT, LEVEL III Diagnosis: Other chest pain[ICD10: R07.89] Diagnosis: Cough[ICD10: R05] Madeline Ha MD, [facility] CPT-4: 26793 12/26/2018 ([id number]) 06356 EST. PATIENT, LEVEL III Diagnosis: Cough[ICD10: R05] Melida Ha MD, [facility] CPT-4: 67313 11/18/2018 ([id number]) 73140 EST. PATIENT, LEVEL III Diagnosis: Cough[ICD10: R05] Diagnosis: Pneumonia due to other Gram-negative bacteria[ICD10: J15.6] Marcela Ha MD, [facility] CPT-4: 20604 11/12/2018 ([id number]) 30104 EST. PATIENT, LEVEL III Diagnosis: Pneumonia due to other Gram-negative bacteria[ICD10: J15.6] Diagnosis: Cough[ICD10: R05] Melida Ha MD, [facility] CPT-4: 01016 10/30/2018 ([id number]) 58555 EST. PATIENT, LEVEL II Diagnosis: Pain in joints of right hand[ICD10: M25.541] Diagnosis: Trigger finger, right middle finger[ICD10: M65.331] Marcela Ha MD, [facility] CPT-4: 57640 10/24/2018 ([id number]) 63380 EST. PATIENT, LEVEL IV Diagnosis: Essential (primary) hypertension[ICD10: I10] Diagnosis: Type 2 diabetes mellitus with foot ulcer[ICD10: E11.621] Melida Ha MD, [facility] CPT-4: 46314 10/23/2018 ([id number]) 89172 EST. PATIENT, LEVEL III Diagnosis: Cellulitis of right finger[ICD10: L03.011] Diagnosis: Type 2 diabetes mellitus with foot ulcer[ICD10: E11.621] Diagnosis: Pain in right hand[ICD10: M79.641] Melida Ha MD, [facility] CPT-4: 08500 10/21/2018 26173 EST. PATIENT, LEVEL III Diagnosis: Spontaneous ecchymoses[ICD10: R23.3] Diagnosis: Cellulitis of right lower limb[ICD10: L03.115] Diagnosis: Cellulitis of left lower limb[ICD10: L03.116] Madeline Ha MD, [facility] CPT-4: 08426 10/17/2018 ([id number]) 10441 EST. PATIENT, LEVEL III Diagnosis: Cough[ICD10: R05] Diagnosis: Acute bronchitis, unspecified[ICD10: J20.9] Melida Ha MD, [facility] CPT-4: 94589 10/14/2018 11259 EST. PATIENT, LEVEL III Diagnosis: Acute laryngopharyngitis[ICD10: J06.0] Diagnosis: Cough[ICD10: R05] Madeline Ha MD, [facility] CPT-4: 98926 09/30/2018 ([id number]) 67016 EST. PATIENT, LEVEL III Diagnosis: Acute recurrent maxillary sinusitis[ICD10: J01.01] Diagnosis: Cough[ICD10: R05] Diagnosis: Type 2 diabetes mellitus with hyperglycemia[ICD10: E11.65] Marcela Ha MD, [facility] CPT-4: 31036 09/09/2018 ([id number]) 67441 EST. PATIENT, LEVEL IV Diagnosis: Essential (primary) hypertension[ICD10: I10] Diagnosis: Mixed hyperlipidemia[ICD10: E78.2] Diagnosis: Bipolar disorder, current episode depressed, moderate[ICD10: F31.32] Diagnosis: Type 2 diabetes mellitus with other specified complication[ICD10: E11.69] Melida Ha MD, [facility] CPT-4: 38406 2017 ([id number]) 18727 EST. PATIENT, LEVEL III Diagnosis: Insomnia due to medical condition[ICD10: G47.01] Marcela Ha MD, [facility] CPT-4: 24796 07/16/2018 ([id number]) Miscellaneous no charge Diagnosis: Cough[ICD10: R05] Madeline Ha MD, [facility] CPT-4: 84691 07/01/2018 52761 EST. PATIENT, LEVEL III Diagnosis: Cough[ICD10: R05] Diagnosis: Acute laryngopharyngitis[ICD10: J06.0] Diagnosis: Other allergic rhinitis[ICD10: J30.89] Madeline Ha MD, [facility] CPT-4: 11280 06/28/2018 ([id number]) 44589 EST. PATIENT, LEVEL IV Diagnosis: Type 2 diabetes mellitus with hyperglycemia[ICD10: E11.65] Diagnosis: Essential (primary) hypertension[ICD10: I10] Melida Ha MD, [facility] CPT-4: 54548 06/18/2018 ([id number]) 43893 EST. PATIENT, LEVEL IV Diagnosis: Type 2 diabetes mellitus with hyperglycemia[ICD10: E11.65] Diagnosis: Essential (primary) hypertension[ICD10: I10] Diagnosis: Localized edema[ICD10: R60.0] Melida Ha MD, [facility] CPT- 4: 90769 06/04/2018 ([id number]) 90430 EST. PATIENT, LEVEL III Diagnosis: Type 2 diabetes mellitus with hyperglycemia[ICD10: E11.65] Diagnosis: Myalgia[ICD10: M79.1] Diagnosis: Pain in right hip[ICD10: M25.551] Diagnosis: Pain in left hip[ICD10: M25.552] Marcela Ha MD, [facility] CPT-4: 72741 05/13/2018 ([id number]) 51994 EST. PATIENT, LEVEL III Diagnosis: Myalgia[ICD10: M79.1] Diagnosis: Pain in right hip[ICD10: M25.551] Diagnosis: Pain in left hip[ICD10: M25.552] Marcela Ha MD, [facility] CPT-4: 67036 05/02/2018 ([id number]) 13024 EST. PATIENT, LEVEL IV Diagnosis: Essential (primary) hypertension[ICD10: I10] Diagnosis: Type 2 diabetes mellitus with hyperglycemia[ICD10: E11.65] Diagnosis: Major depressive disorder, single episode, moderate[ICD10: F32.1] Diagnosis: Myalgia[ICD10: M79.1] Marcela Ha MD, [facility] CPT-4: 85224 04/29/2018 ([id number]) 94640 EST. PATIENT, LEVEL IV Diagnosis: Type 2 diabetes mellitus with hyperglycemia[ICD10: E11.65] Diagnosis: Essential (primary) hypertension[ICD10: I10] Diagnosis: Major depressive disorder, single episode, moderate[ICD10: F32.1] Melida Ha MD, [facility] CPT-4: 34769 03/13/2018 ([id number]) 29362 EST. PATIENT, LEVEL III Diagnosis: Type 2 diabetes mellitus with hyperglycemia[ICD10: E11.65] Diagnosis: Bipolar disorder, current episode depressed, moderate[ICD10: F31.32] Diagnosis: Orthostatic hypotension[ICD10: I95.1] Marcela Ha MD, [facility] CPT-4: 61530 03/07/2018 ([id number]) 61545 EST. PATIENT, LEVEL IV Diagnosis: Type 2 diabetes mellitus with hyperglycemia[ICD10: E11.65] Diagnosis: Major depressive disorder, single episode, moderate[ICD10: F32.1] Diagnosis: Orthostatic hypotension[ICD10: I95.1] Diagnosis: Other fatigue[ICD10: R53.83] Marcela Ha MD, [facility] CPT-4: 45010 02/28/2018 45578 EST. PATIENT, LEVEL IV Diagnosis: Other fatigue[ICD10: R53.83] Diagnosis: Other malaise[ICD10: R53.81] Diagnosis: Gastro-esophageal reflux disease without esophagitis[ICD10: K21.9] Madeline Ha MD, [facility] CPT-4: 75772 02/13/2018 ([id number]) 90089 EST. PATIENT, LEVEL IV Diagnosis: Type 2 diabetes mellitus with foot ulcer[ICD10: E11.621] Diagnosis: Essential (primary) hypertension[ICD10: I10] Diagnosis: Gastro-esophageal reflux disease without esophagitis[ICD10: K21.9] Marcela Ha MD, [facility] CPT-4: 30065 01/29/2018 28091 EST. PATIENT, LEVEL III Diagnosis: Other malaise[ICD10: R53.81] Diagnosis: Other fatigue[ICD10: R53.83] Diagnosis: Pain in right shoulder[ICD10: M25.511] Diagnosis: Pain in left shoulder[ICD10: M25.512] Madeline Ha MD, [facility] CPT-4: 23466 08/27/2017 ([id number]) 60705 EST. PATIENT, LEVEL IV Diagnosis: Essential (primary) hypertension[ICD10: I10] Diagnosis: Type 2 diabetes mellitus with hyperglycemia[ICD10: E11.65] Diagnosis: VACCIN FOR INFLUENZA[ICD10: Z23] Melida Ha MD, [facility] CPT-4: 40268 08/16/2017 49530 EST. PATIENT, LEVEL III Diagnosis: Zoster without complications[ICD10: B02.9] Madeline Ha MD, [facility] CPT-4: 03351 07/26/2017 ([id number]) 72741 EST. PATIENT, LEVEL III Diagnosis: Cellulitis of right lower limb[ICD10: L03.115] Marcela Ha MD, [facility] CPT-4: 76099 07/03/2017 89117 EST. PATIENT, LEVEL II Diagnosis: Laceration without foreign body of left forearm, initial encounter[ ICD10: S51.812A] Marcela Ha MD, [facility] CPT-4: 30339 06/29/2017 ([id number]) 93508 EST. PATIENT, LEVEL III Diagnosis: Cellulitis of right lower limb[ICD10: L03.115] Diagnosis: Type 2 diabetes mellitus with foot ulcer[ICD10: E11.621] Marcela Ha MD [facility] CPT-4: 19789 06/18/2017 ([id number]) 07171 EST. PATIENT, LEVEL IV Diagnosis: Cellulitis of right lower limb[ICD10: L03.115] Diagnosis: Acute laryngopharyngitis[ICD10: J06.0] Diagnosis: Gastro-esophageal reflux disease without esophagitis[ICD10: K21.9] Marcela Ha MD [facility] CPT-4: 52500 06/07/2017 ([id number]) 54098 EST. PATIENT, LEVEL III Diagnosis: Type 2 diabetes mellitus with hyperglycemia[ICD10: E11.65] Diagnosis: Insect bite (nonvenomous) of abdominal wall, initial encounter[ICD10 : S30.861A] Marcela Ha MD [facility] CPT-4: 26931 05/17/2017 ([id number]) 62126 EST. PATIENT, LEVEL III Diagnosis: Allergic contact dermatitis due to plants, except food[ICD10: L23.7] Melida Ha MD [facility] CPT-4: 26721 05/04/2017 ([id number]) 91676 EST. PATIENT, LEVEL III Diagnosis: Essential (primary) hypertension[ICD10: I10] Marcela Ha MD [facility] CPT-4: 92496 03/15/2017 ([id number]) 75606 EST. PATIENT, LEVEL III Diagnosis: Cough[ICD10: R05] Diagnosis: Essential (primary) hypertension[ICD10: I10] Marcela Ha MD [facility] CPT-4: 39440 03/01/2017 ([id number]) 25967 EST. PATIENT, LEVEL III Diagnosis: Cough[ICD10: R05] Diagnosis: Nasal congestion[ICD10: R09.81] Diagnosis: Acute recurrent maxillary sinusitis[ICD10: J01.01] Marcela Ha MD [facility] CPT-4: 54193 02/16/2017 ([id number]) 60561 EST. PATIENT, LEVEL III Diagnosis: Type 2 diabetes mellitus with hyperglycemia[ICD10: E11.65] Marcela Ha MD [facility] CPT-4: 20822 02/12/2017 ([id number]) 50019 EST. PATIENT, LEVEL IV Diagnosis: Type 2 diabetes mellitus with hyperglycemia[ICD10: E11.65] Diagnosis: Muscle weakness (generalized)[ICD10: M62.81] Diagnosis: Disorientation, unspecified[ICD10: R41.0] Marcela Ha MD, [facility] CPT-4: 53395 02/05/2017 ([id number]) Patient admitted to the hospital from clinic (NO CHARGE) Diagnosis: Type 2 diabetes mellitus with hyperglycemia[ICD10: E11.65] Diagnosis: Disorientation, unspecified[ICD10: R41.0] Diagnosis: Muscle weakness (generalized)[ICD10: M62.81] Marcela Ha MD, [facility] CPT-4: 49357M 01/29/2017 ([id number]) Miscellaneous no charge Diagnosis: Cellulitis of right lower limb[ICD10: L03.115] Marcela Ha MD, [facility] CPT-4: 52289 10/13/2016 ([id number]) Miscellaneous no charge Diagnosis: Type 2 diabetes mellitus with foot ulcer[ICD10: E11.621] Diagnosis: Pain in right foot[ICD10: M79.671] Marcela Ha MD, [facility] CPT-4: 28790 10/09/2016 85580 EST. PATIENT, LEVEL II Diagnosis: Cellulitis of right lower limb[ICD10: L03.115] Marcela Ha MD, [facility] CPT-4: 00716 10/06/2016 ([id number]) 14662 EST. PATIENT, LEVEL IV Diagnosis: Low back pain[ICD10: M54.5] Diagnosis: Other deformities of toe(s) (acquired), left foot[ICD10: M20.5X2] Diagnosis: Type 2 diabetes mellitus with foot ulcer[ICD10: E11.621] Marcela Ha MD , [facility] CPT-4: 37575 07/18/2016 ([id number]) 00435 EST. PATIENT, LEVEL III Diagnosis: Type 2 diabetes mellitus with hyperglycemia[ICD10: E11.65] Marcela Ha MD, [facility] CPT-4: 72760 06/22/2016 ([id number]) 05785 EST. PATIENT, LEVEL IV Diagnosis: Type 2 diabetes mellitus with hyperglycemia[ICD10: E11.65] Diagnosis: Mixed hyperlipidemia[ICD10: E78.2] Diagnosis: Other hemoglobinopathies[ICD10: D58.2] Marcela Ha MD, [facility] CPT-4: 63334 05/23/2016 ([id number]) 12365 EST. PATIENT, LEVEL IV Diagnosis: Type 2 diabetes mellitus with other specified complication[ICD10: E11.69] Diagnosis: Dehydration[ICD10: E86.0] [facility] CPT-4: 89092 05/15/2016 ([id number]) OFFICE VISIT, NEW - LEVEL 3 Diagnosis: Allergic contact dermatitis due to plants, except food[ICD10: L23.7] Madeline Ha MD, [facility] CPT-4: 92972 01/20/2016 Plan of Care Planned Activity Notes [...] Fatigue-check labs 02/17/2019 Appointment: Marcela Oshea WPtel: [address] [place], [place] [phone] (30 min) Complex 02/17/2019 Patient Education: Patient Medication Summary Completed 02/17/2019 Appointment: Marcela Oshea WPtel: [address] [place], [place] [phone] (30 min) Complex 01/14/2019 Visit Plan: Hypertension [...] Summary Completed 01/13/2019 Appointment: Marcela Oshea WPtel: [phone] (30 min) Complex 01/10/2019 Visit Plan: Epigastric pain -start protonix daily- monitor symptoms Chest pain -work up negative done last week with Madeline-recommend appt with Dr Brennan Joint pain-check inflammation makers DM-check Hgb a1c 12/31/2018 Appointment: Marcela Oshea WPtel: [phone] (15 min) Moderate 12/31/2018 Patient Education: Patient Medication Summary Completed 12/31/2018 Visit Plan: chest pain - EKG and cardiac enzymes OK - discussed with Dr. Ha - will treat for pneumonia - pt is to notify clinic if symptoms do not improve, if they worsen, or with any changes questions, or concerns. 12/26/2018 Appointment: Madeline Kennedy WPtel: [phone] (30 min) Complex 12/26/2018 Patient Education: Patient Medication Summary Completed 12/26/2018 Referral: Andrew Cross Patient informed. Referral info faxed. Completed Visit Plan: cough - improved - continue with inhalers - continue with symbicort - rx for proair for PRN use when pt is feelign short of breath with activity. 11/18/2018 Appointment: Melida Ha WPtel: [phone] (15 min) Moderate 11/18/2018 Patient Education: [...] of plan. 11/12/2018 Appointment: Marcela Oshea WPtel: [phone] (30 min) Complex 11/12/2018 Patient Education: Patient Medication Summary Completed 11/12/2018 Patient Education: Symbicort - 18-64 - eCopay Completed 11/12/2018 Care Plan: Referral Order SNOMED-CT : [id number] Pending 11/12/2018 Referral: Niko Mantilla Referral Completed 11/04/2018 Visit Plan: Pneumonia, cough - recent diagnosis of Moraxella Cattharalis - with sensitivity to levaquin - will give 2 wks of levaquin since he had improvement but no full resolution of symptoms. 10/30/2018 Appointment: Melida Ha WPtel: [facility]5 [facility] 30 min appointments only in this [...] for evaluation 10/24/2018 Appointment: Marcela Oshea WPtel: [facility]5 [phone] (30 min) Complex 10/24/2018 Patient Education: Patient Medication Summary Completed 10/24/2018 Care Plan: Referral Order SNOMED-CT : [id number] Pending 10/24/2018 Visit Plan: Hypotension - discussed [...] less controlled. 10/23/2018 Appointment: Melida Ha WPtel: [address] [place], [place] [address] (15 min) Moderate 10/23/2018 Patient Education: Patient [...] and plan. 10/21/2018 Appointment: Marcela Oshea WPtel: [facility]8 [phone] (30 min) Complex 10/21/2018 Patient Education: Patient [...] warmth, discharge. 10/17/2018 Appointment: Madeline Kennedy WPtel: [facility] (15 min) Moderate 10/17/2018 Patient Education: [...] acutely worsen. 10/14/2018 Appointment: Marcela Oshea WPtel: [phone] [phone] (15 min) Moderate 10/14/2018 Patient Education: Patient Medication Summary Completed 10/14/2018 Care Plan: CHEST X-RAY 2VW FRONTAL&LATL LOINC : 96187-7 Pending 10/14/2018 Visit Plan: URI - Pt [...] allergy spray. 09/30/2018 Appointment: Madeline Kennedy WPtel: [facility]5 [facility] (15 min) Moderate 09/30/2018 Patient Education: Patient [...] Hgb A1C 09/09/2018 Appointment: Marcela Oshea WPtel: [address] [place], [place] [phone] (15 min) Moderate 09/09/2018 Patient Education: Patient Medication Summary Completed 09/09/2018 Patient Education: Patient Medication Summary Completed 09/06/2018 Patient Education: Cholesterol Management Completed 09/06/2018 Care Plan: Comp Metabolic Pending 09/06/2018 Care Plan: Cbc With Differential Pending 09/06/2018 Care Plan: %Hba1C LOINC : 25190-3 Pending 09/06/2018 Care Plan: Tsh Pending 09/06/2018 Care Plan: Lipid Pending 09/06/2018 Appointment: Marcela Oshea WPtel: [address] [place], [place] [phone] (15 min) Moderate 08/26/2018 Appointment: Marcela Oshea WPtel: [address] [place], [place] [phone] (15 min) Moderate 08/23/2018 Visit Plan: Hypertension [...] in clinic. 07/22/2018 Appointment: Melida Ha WPtel: [phone] [facility] (15 min) Moderate 07/22/2018 Patient Education: [...] insomnia. 07/16/2018 Appointment: Marcela Oshea WPtel: [phone] [phone] (30 min) Complex 07/16/2018 Patient Education: Patient Medication Summary Completed 07/16/2018 Visit Plan: cough - improved - notify clinic if symptoms do not completely resolve, or with any questions or concerns. 07/01/2018 Appointment: [phone] (15 min) Moderate 07/01/2018 Patient Education: Patient [...] Kennedy WPtel: [facility]1 [facility]6[address] (15 min) Moderate 06/28/2018 Patient Education: [...] Melida Ha WPtel: [facility]3 [facility] (15 min) Moderate 06/18/2018 Patient Education: [...] [facility]el[phone] [place] (15 min) Moderate 06/04/2018 Patient Education: Patient [...] allow for greater blood glucose control. Joint aaly-jnkztiza-ryqjlhe- symptoms have improved -stop meloxicam due to upset stomach-call if symptoms return 05/13/2018 Appointment: Marcela Oshea [facility]Ptel: [phone] [phone] [place] (30 min) Complex 05/13/2018 Patient Education: Patient Medication Summary Completed 05/13/2018 Visit Plan: Bilateral hip ttnd-phtcnder-djmynoz IM injection administered today for c/o continued myalgia/arthralgia. Patient to start taking Meloxicam 15mg PO daily. Advised to return to clinic if symptoms do not improve. 05/02/2018 Appointment: Marcela Osheal: [facility]5 [phone] (30 min) Complex 05/02/2018 Patient Education: Patient [...] readings at home. Diabetes Mellitus -check labs Vfegwxcl-fyedfff-lcwo bite-rx for doxycycline-follow up in 2 weeks 04/29/2018 Appointment: Marcela Oshea WPtel: [facility]2 [phone] (15 min) Moderate 04/29/2018 Patient Education: Patient Medication Summary Completed 04/29/2018 Appointment: Melida Ha WPtel: [phone] [facility] (15 min) Moderate 04/15/2018 Appointment: Marcela Oshea WPtel: [facility]0 [phone] (30 min) Complex 03/21/2018 Visit Plan: Hypertension [...] cymbalta 03/13/2018 Appointment: Melida Ha WPtel: [phone] [facility] (30 min) Complex 03/13/2018 Patient Education: Patient Medication Summary Completed 03/13/2018 Visit Plan: DM-continue same medications-monitor blood sugars routinely as directed -rx for new glucometer and test strips provided Bipolar-currently depressed-patient start on vraylar-follow up in 2 weeks, sooner if needed. Patient and verbalied understanding of plan. Hypotension- stay off losartan 03/07/2018 Appointment: Marcela Oshea WPtel: [facility]7 [phone] (30 min) Complex 03/07/2018 Patient Education: Patient Medication Summary Completed 03/07/2018 Appointment: Melida Ha WPtel: [phone] [facility] (15 min) Moderate 03/04/2018 Visit Plan: [...] patient. 02/28/2018 Appointment: Marcela Oshea WPtel: [phone] [phone] (30 min) Complex 02/28/2018 Patient Education: Patient [...] improving. 02/13/2018 Appointment: Madeline Kennedy [facility]Ptel: [phone] [place] (15 min) Moderate 02/13/2018 Patient Education: Patient Medication Summary Completed 02/13/2018 Referral: Sun Glynn Patient informed. Referral info faxed. Completed Visit Plan: DM-weight loss-not checking blood sugars- patient sent for labs today HTN-low efwki-qrwnhfe-olzqe labs Callus of foot and fissue of [...] Oshea WPtel: [facility] [phone] [place] (30 min) Complex 01/29/2018 Patient Education: Patient Medication Summary Completed 01/29/2018 Care Plan: Comp Metabolic Cancelled 01/29/2018 Care Plan: Cbc With Differential Cancelled 01/29/2018 Care Plan: %Hba1C LOINC : 26109-2 Cancelled 01/29/2018 Care Plan: Referral Order SNOMED-CT : [id number] Cancelled 01/29/2018 Visit Plan: Fatigue, malaise, joint [...] concerns. 08/27/2017 Appointment: Madeline Kennedy WPtel: [phone] [facility] (15 min) Moderate 08/27/2017 Patient Education: Patient [...] today - 08/16/2017 Appointment: Melida Ha WPtel: [phone] [facility] (30 min) Complex 08/16/2017 Patient Education: Patient Medication Summary Completed 08/16/2017 Patient Education: Obesity Completed 08/16/2017 Appointment: Madeline Kennedy WPtel: [phone] [facility] (30 min) Complex 08/07/2017 Visit Plan: Shingles [...] considered contagious. 07/26/2017 Appointment: Madeline Kennedy [facility]Ptel: [phone] [place] (15 min) Moderate 07/26/2017 Patient Education: Patient Medication Summary Completed 07/26/2017 Visit Plan: Cellulitis right foot-cultured today in the office-home health to reapply wound vac--appt with wound care on to evaluate for debridement- 07/03/2017 Appointment: Marcela Oshea WPtel: [address] [place], [place] [phone] (30 min) Complex 07/03/2017 Patient Education: Patient Medication Summary Completed 07/03/2017 Visit Plan: Abrasion left arm - Pt was instructed to keep the wound clean, wash with antibacterial soap, use triple antibiotic ointment, call if redness, pustular drainage, or any other acute concerns. 06/29/2017 Appointment: Marcela Oshae WPtel: [address] [place], [place] [phone] (15 min) Moderate 06/29/2017 Patient Education: Patient [...] of plan. 06/18/2017 Appointment: Marcela Oshea WPtel: [address] [place], [place] [phone] (15 min) Moderate 06/18/2017 Patient Education: Patient [...] prilosec 06/07/2017 Appointment: Marcela Oshea WPtel: [phone] [phone] (10 min) Simple 06/07/2017 Patient Education: Patient [...] doxycycline 05/17/2017 Appointment: Marcela Oshea WPtel: [phone] [phone] (30 min) Complex 05/17/2017 Patient Education: Patient [...] rosieo called into [facility]. 05/04/2017 Appointment: Marcela Oshea WPtel: [phone] [phone] (30 min) Complex 05/04/2017 Patient Education: Patient [...] Cough-resolved 03/15/2017 Appointment: Marcela Oshea WPtel: [phone] [phone] (15 min) Moderate 03/15/2017 Patient Education: Patient Medication Summary Completed 03/15/2017 Appointment: Marcela Oshea WPtel: [address] [place], [place] [phone] [place] [address] (30 min) Complex 03/12/2017 Visit Plan: Feng [...] as discussed 02/16/2017 Appointment: Marcela Oshea WPtel: [address] [place], [place] [phone] [place] [address] (15 min) Moderate 02/16/2017 Patient Education: Patient [...] less controlled. 02/12/2017 Appointment: Marcela Oshea WPtel: [address] [place], [place] [phone] (30 min) Complex 02/12/2017 Patient Education: Patient Medication Summary Completed 02/12/2017 Appointment: Marcela Oshea WPtel: [address] [place], [place] [phone] (30 min) Complex 02/06/2017 Visit Plan: Diabetes [...] Oshea WPtel: [facility]5 [phone] (30 min) Complex 02/05/2017 Patient Education: Patient Medication Summary Completed 02/05/2017 Appointment: Marcela Oshea WPtel: [address] [place], [place] [phone] (30 min) Complex 01/30/2017 Visit Plan: Acute confusion-uncontrolled diabetes- chronically noncompliant with treatment and stopped his insulin several months ago-r/o stroke vs DKA-Dr Ha in to evaluate patient-plan to admit for further work up and treatment-patient's called and she transported him to the hospital 01/29/2017 Appointment: Marcela Oshea WPtel: [facility]0 [phone] (30 min) Complex 01/29/2017 Patient Education: Patient Medication Summary Completed 01/29/2017 Patient Education: Obesity Completed 01/29/2017 Visit Plan: Right foot pain-MRI shows foreign body-appt with Dr Grewal for evaluation on Sunday. 10/13/2016 Appointment: Marcela Oshea WPtel: [address] [place], [place] [phone] [place] (15 min) Moderate 10/13/2016 Patient Education: Patient Medication Summary Completed 10/13/2016 Appointment: Marcela Oshea WPtel: [address] [place], [place] [phone] (30 min) Complex 10/12/2016 Visit Plan: Right foot syap-flxhrvcq-femtw washer dropped on foot-xray negative but pain continues to increase-recommend MRI of foot for further evaluation-refer to wound care for lesions on right foot, patient has diabetes and history of osteomyelitis-culture obtained today-continue oral abx- follow up in the office on , sooner if needed 10/09/2016 Visit Plan: Right foot nfuh-olmuzdkk-evbgn washer dropped on foot-xray negative but pain continues to increase-recommend MRI of foot for further evaluation-refer to wound care for lesions on right foot, patient has diabetes and history of osteomyelitis-culture obtained today-continue oral abx- follow up in the office on , sooner if needed 10/09/2016 Visit Plan: Right foot nuql-rowczkhg-rwezn washer dropped on foot-xray negative but pain continues to increase-recommend MRI of foot for further evaluation-refer to wound care for lesions on right foot, patient has diabetes and history of osteomyelitis-culture obtained today-continue oral abx- follow up in the office on , sooner if needed 10/09/2016 Appointment: Marcela Oshea WPtel: [address] [place] [address] (30 min) Complex 10/09/2016 Patient Education: Patient Medication Summary Completed 10/09/2016 Visit Plan: Cellulitis - continue with oral antibiotics as previously directed, return to clinic as previously directed, call for acute change in symptoms, worsening redness, warmth, discharge. 10/06/2016 Appointment: Marcela Oshea WPtel: [address] [place], [place] [phone] (10 min) Simple 10/06/2016 Patient Education: Patient Medication Summary Completed 10/06/2016 Appointment: Marcela Oshea WPtel: [address] [place], [place] [phone] (30 min) Complex 08/24/2016 Referral: Sun Glynn Referral Completed 07/21/2016 Visit Plan: Low back pain- history of spinal fusion- patient for xray lumbar spine-RX sent to [facility] and instructed on use-topical voltaren samples provided and instructed on use. Ok to use tylenol as needed as well. The patient is to call the office if the pain is worsening or does not improve. Pressure ulcer left 4th toe-refer to Dr Glynn for evaluation 07/18/2016 Appointment: Marcela Oshea WPtel: [phone] [phone] (30 min) Complex 07/18/2016 Patient Education: Patient Medication Summary Completed 07/18/2016 Patient Education: Obesity Completed 07/18/2016 Care Plan: Referral Order SNOMED-CT : [id number] Cancelled 07/18/2016 Visit Plan: Diabetes Mellitus - [...] control. 06/22/2016 Appointment: Marcela Oshea WPtel: [phone] [phone] (30 min) Complex 06/22/2016 Patient Education: Patient [...] today 05/23/2016 Appointment: Marcela Oshea WPtel: [phone] [phone] (30 min) Complex 05/23/2016 Patient Education: Patient [...] Oshea WPtel: [phone] (15 min) Moderate 05/15/2016 Patient Education: Patient [...] if you want anai edge called into [facility]. 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 Low back pain- history of spinal fusion-patient for xray lumbar spine-RX sent to [facility] and instructed on use-topical voltaren [...] for fracture from injury . Right foot viqq-csbdfajw-lbyrh washer dropped on foot-xray negative but pain [...] for fracture from injury . Right foot alte-bkrlfhpn-ihptv washer dropped on foot-xray negative but pain [...] for fracture from injury . Right foot ksqn-ddklzzfr-eleiy washer dropped on foot-xray negative but pain [...] if needed Fatigue-check labs . Bilateral hip bknj-xxnndwsw-pqcqltp IM injection administered today for c/o continued myalgia/arthralgia. Patient to start taking Meloxicam 15mg PO daily. Advised to return to clinic if symptoms do not improve. . DM-weight loss-not checking blood sugars-patient sent for labs today HTN-low gatbb-oelvrfl-cacld labs Callus of foot and fissue of [...] readings are starting to become less controlled. Svgghmnbi-yfpsyjgq-kinboxop to monitor Generalized weakness-refer for PT-patient refuses [...] allow for greater blood glucose control. Joint qoqd-cbzlwyrp-qotlsmn-symptoms have improved -stop meloxicam due to upset [...] readings at home. Diabetes Mellitus -check labs Nfmkiamw-egqavxn-ljbe bite-rx for doxycycline-follow up in 2 weeks [...]
--- NOTE | 2019-03-10 09:44 | Diagnostic Imaging Report ---
INDICATION: Chest pain. COMPARISON: 01/01/2019 FINDINGS: Single frontal view of the chest demonstrates normal heart size and pulmonary vascularity. The lungs are well aerated and clear. No large pleural effusion or pneumothorax is seen. The visualized osseous structures show no acute abnormalities. IMPRESSION: 1. No acute cardiopulmonary process. Dictated by: Dictated on workstation # [id number]
--- OUTSIDE RECORDS SUMMARY | 2019-03-10 09:45 | XMS REPORT | CCD ---
Author Author Madeline Kennedy MD, [facility] Address [address] [place] [address] Phone Care Team Providers Care Engineer Chief Name Role Phone PP Unavailable CCM Unavailable Summary Purpose Interface Exchange Insurance Providers Payer name Policy type / Coverage type Covered democrat ID Effective Begin Date Effective End Date [place] [employer] [id number] Unknown Family history Father Diagnosis Age At Onset Hyperlipidemia Unknown Heart Attack Unknown Mother Diagnosis Age At Onset Hypertension Unknown Social History Social History Element Codes Description Effective Dates Marital status Unknown Mignon 01/20/2016 Number of children Unknown 4 01/20/2016 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/[address]: 871252831 Never smoker 01/20/[address]: 922857281 Never drinks alcohol 01/20/2016 Allergies, Adverse Reactions, Alerts Substance Reaction Codes Entered Date Inactivated Date Status * NO KNOWN DRUG ALLERGIES Unknown 05/23/2016 No Inactive Date Active Past Medical History Illness Codes Condition Status Onset Date Resolved Date 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 ICD-10: I95.2 Active 02/17/2019 Unknown Other fatigue ICD-9: 780.79 ICD-10: R53.83 Active 08/27/2017 Unknown 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 Active 01/13/2019 Unknown Essential (primary) hypertension ICD-9: 401.1 ICD-10: I10 Active 03/01/2017 Unknown Epigastric pain ICD-9 : 789.06 ICD-10: [...] Problems Condition Codes Effective Dates Condition Status 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 ICD-10: I95.2 02/17/2019 Active Other fatigue ICD-9: 780.79 ICD-10: R53.83 08/27/2017 Active 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 01/13/2019 Active Essential (primary) hypertension ICD-9: 401.1 ICD-10: I10 03/01/2017 Active Epigastric pain ICD-9 : 789.06 ICD-10: [...] Fill Instructions Lyrica 50 mg capsule RxNorm: 396946 Capsule(s) PO daily 201806/25/2019 Active Cymbalta 60 mg capsule,delayed release RxNorm: 055440 1 Capsule(s) PO QAM 02/19/2019 09/16/2019 Active will call for refill- dose change Coreg 6.25 mg tablet RxNorm: 902381 1 Tablet(s) daily 201808/17/2019 Active clonazepam 1 mg tablet RxNorm: 942157 2 Tablet(s) PO HS 201806/14/2019 Active Tresiba FlexTouch U-200 insulin 200 unit/mL (3 mL) subcutaneous pen RxNorm: 1526093 50 Unit(s) SQ daily 01/08/2019 05/07/2019 Active please give him 30 day supply Protonix 40 mg tablet,delayed release RxNorm: 543339 1 Tablet(s) PO daily 12/31/2018 01/29/2019 Inactive Tresiba FlexTouch U-200 insulin 200 unit/mL (3 mL) subcutaneous pen RxNorm: 8635915 50 Unit(s) SQ daily 12/31/2018 01/07/2019 Inactive please give him 30 day supply Augmentin 500 mg-125 mg tablet RxNorm: 607976 1 Tablet(s) PO TID 12/26/2018 01/04/2019 Inactive Augmentin 500 mg-125 mg tablet RxNorm: 952684 1 Tablet(s) PO TID 12/26/2018 12/25/2018 Inactive ProAir HFA 90 mcg/actuation aerosol inhaler RxNorm: 9806141 2 Puff(s) INH QID as needed 11/18/2018 No Stop Date Active Lyrica 50 mg capsule RxNorm: 773874 Capsule(s) PO daily 201802/07/2019 Inactive Cymbalta 30 mg capsule,delayed release RxNorm: 281124 1 Capsule(s) PO QAM 11/13/2018 02/18/2019 Inactive Lyrica 50 mg capsule RxNorm: 859286 Capsule(s) PO daily 201811/12/2018 Inactive Symbicort 160 mcg-4.5 mcg/actuation HFA aerosol inhaler RxNorm: 0185904 2 Puff(s) INH BID 11/12/2018 12/11/2018 Inactive albuterol sulfate 2.5 mg/3 mL (0.083 %) solution for nebulization RxNorm: 743469 3 Milliliter(s) INH UD 11/07/2018 No Stop Date Active azithromycin 500 mg tablet RxNorm: 677597 500mg on day 1 then 250 mg daily x 4 more day Tablet(s) PO 11/07/20182018 Inactive 500mg on day 1 and then 250mg daily 2-4 cefdinir 300 mg capsule RxNorm: 767833 1 Capsule(s) PO BID 01/201911/06/2018 Inactive azithromycin 500 mg tablet RxNorm: 060661 500mg on day 1 then 250 mg daily x 4 more day Tablet(s) PO 11/07/20182018 Inactive 500mg on day 1 and then 250mg daily 2-4 cefdinir 300 mg capsule RxNorm: 421569 1 Capsule(s) PO BID 01/201911/13/2018 Inactive Levaquin 500 mg tablet RxNorm: 634804 1 Tablet(s) PO daily TAKE ONE TABLET BY MOUTH DAILY UNTIL GONE 10/31/20182018 Inactive Levaquin 500 mg tablet RxNorm: 127187 1 Tablet(s) PO daily 11/12/2018 Inactive valsartan 80 mg tablet RxNorm: 073062 1/2 Tablet(s) PO daily 04/20/2019 Active doxycycline hyclate 100 mg tablet RxNorm: 9071010 1 Tablet(s) PO BID 10/21/2018 10/27/2018 Inactive ketorolac 60 mg/2 mL intramuscular solution RxNorm: 6510759 Milliliter(s) IM 10/21/2018 10/21/2018 Inactive Levaquin 500 mg tablet RxNorm: 050045 1 Tablet(s) PO daily 10/31/2018 Inactive Tessalon Perles 100 mg capsule RxNorm: 833188 1-2 Capsule(s) PO TID PRN 10/14/2018 No Stop Date Active albuterol sulfate 2.5 mg/3 mL (0.083 %) solution for nebulization RxNorm: 611029 3 Milliliter(s) INH UD 10/14/201812/2018 Inactive Levaquin 500 mg tablet RxNorm: 879645 1 Tablet(s) PO daily 08/201810/16/2018 Inactive albuterol sulfate 2.5 mg/3 mL (0.083 %) solution for nebulization RxNorm: 697266 3 Milliliter(s) INH UD 09/30/201807/2018 Inactive Kenalog 40 mg/mL suspension for injection RxNorm: 2683720 1.5 Milliliter(s) Inj 09/30/2018 09/30/2018 Inactive Coreg 6.25 mg tablet RxNorm: 990833 TAKE ONE TABLET BY MOUTH TWICE A DAY 09/30/2018 02/18/2019 Inactive Keflex 500 mg capsule RxNorm: 791097 1 Capsule(s) PO TID 201710/03/2018 Inactive prednisone 20 mg tablet RxNorm: 233506 2 Tablet(s) PO daily 09/29/2018 Inactive Kenalog 40 mg/mL suspension for injection RxNorm: 0997460 Milliliter(s) Inj 09/11/2018 09/11/2018 Inactive Zyrtec 10 mg tablet RxNorm: 3720458 1 Tablet(s) PO daily 09/0910/08/2018 Inactive Keflex 500 mg capsule RxNorm: 190329 1 Capsule(s) PO TID 201709/15/2018 Inactive Tresiba FlexTouch U-200 insulin 200 unit/mL (3 mL) subcutaneous pen RxNorm: 7879625 50 Unit(s) SQ daily 08/30/2018 08/29/2018 Inactive please give him 30 day supply Tresiba FlexTouch U-200 insulin 200 unit/mL (3 mL) subcutaneous pen RxNorm: 3764116 50 Unit(s) SQ daily 08/30/2018 09/28/2018 Inactive please give him 30 day supply Novolog Flexpen U-100 Insulin aspart 100 unit/mL subcutaneous RxNorm: 9396791 8 Unit(s) SQ AC 08/13/2018 No Stop Date Active Novolog Flexpen U-100 Insulin aspart 100 unit/mL subcutaneous RxNorm: 3215491 8 Unit(s) SQ AC 07/22/20182017 Inactive this is an update on his medication Novolog Flexpen U-100 Insulin aspart 100 unit/mL subcutaneous RxNorm: 9541756 12 Unit(s) SQ AC 07/05/20182017 Inactive this is an update on his medication Toujeo SoloStar U-300 Insulin 300 unit/mL (1.5 mL) subcutaneous pen RxNorm: 6350732 INJECT 50 UNITS UNDER THE SKIN DAILY 07/01/2018 08/29/2018 Inactive Mucinex 600 mg tablet, extended release RxNorm: 837984 1 Tablet(s) PO BID 06/28/2018 07/04/2018 Inactive Zofran 4 mg tablet RxNorm: 373725 1 Tablet(s) PO TID as needed nausea 06/28/2018 07/02/2018 Inactive Kenalog 40 mg/mL suspension for injection RxNorm: 8179817 Milliliter(s) Inj 06/28/2018 06/28/2018 Inactive Flonase Allergy Relief 50 mcg/actuation nasal spray, suspension RxNorm: 4188456 1 [place] NASAL BID 06/28/20182017 Inactive Lyrica 50 mg capsule RxNorm: 661809 Capsule(s) PO daily 201707/06/2018 Inactive Novolog Flexpen U-100 Insulin aspart 100 unit/mL subcutaneous RxNorm: 6204448 10 Unit(s) SQ AC 06/18/20182017 Inactive this is an update on his medication Lasix 20 mg tablet RxNorm: 979921 1 Tablet(s) PO BIW 201707/02/2018 Inactive atorvastatin 80 mg tablet RxNorm: 750910 1 Tablet(s) PO QHS 04/201812/06/2018 Inactive clonazepam 1 mg tablet RxNorm: 325455 2 Tablet(s) PO HS as needed 06/10/2018 06/08/2018 Inactive clonazepam 1 mg tablet RxNorm: 604142 2 Tablet(s) PO HS 201702/17/2019 Inactive Lyrica 50 mg capsule RxNorm: 017673 Capsule(s) PO daily 201707/08/2018 Inactive Lasix 20 mg tablet RxNorm: 817966 1 Tablet(s) PO TIW 201706/11/2018 Inactive Toujeo SoloStar U-300 Insulin 300 unit/mL (1.5 mL) subcutaneous pen RxNorm: 1085199 50 Unit(s) SQ daily 05/07/2018 06/30/2018 Inactive meloxicam 15 mg tablet RxNorm: 030472 15 Milligram(s) PO daily 05/02/2018 05/12/2018 Inactive ketorolac 30 mg/mL injection solution RxNorm: 597927 2 Milliliter(s) Inj 05/02/2018 05/02/2018 Inactive Toujeo SoloStar U-300 Insulin 300 unit/mL (1.5 mL) subcutaneous pen RxNorm: 4513643 45 Unit(s) daily 04/29/2018 Inactive clonazepam 1 mg tablet RxNorm: 225444 1 Tablet(s) PO Q8 as needed 04/29/2018 06/09/2018 Inactive doxycycline hyclate 100 mg tablet RxNorm: 1577753 1 Tablet(s) PO BID 04/29/2018 05/12/2018 Inactive Cymbalta 30 mg capsule,delayed release RxNorm: 373454 1 Capsule(s) PO QAM 03/13/2018 10/08/2018 Inactive Lexapro 10 mg tablet RxNorm: 937069 1 Tablet(s) PO QPM 201703/03/2018 Inactive Toujeo SoloStar U-300 Insulin 300 unit/mL (1.5 mL) subcutaneous pen RxNorm: 1797033 20 Unit(s) daily 02/28/2018 Inactive Protonix 40 mg tablet,delayed release RxNorm: 364937 1 Tablet(s) PO daily 01/29/2018 06/09/2018 Inactive clonazepam 1 mg tablet RxNorm: 523275 1 Tablet(s) PO Q8 as needed 12/12/2017 03/10/2018 Inactive Tamiflu 75 mg capsule RxNorm: 536802 1 Capsule(s) PO BID 201712/03/2017 Inactive doxycycline hyclate 100 mg capsule RxNorm: 9070446 1 Capsule(s) PO BID 09/07/2017 09/20/2017 Inactive doxycycline hyclate 100 mg capsule RxNorm: 8217980 1 Capsule(s) PO BID 08/27/2017 09/06/2017 Inactive prednisone 20 mg tablet RxNorm: 658780 2 Tablet(s) PO daily 08/31/2017 Inactive clopidogrel 75 mg tablet RxNorm: 845674 1 Tablet(s) PO daily 06/09/2018 Inactive atorvastatin 40 mg tablet RxNorm: 560875 1 Tablet(s) PO QHS 02/27/2018 Inactive losartan 25 mg tablet RxNorm: 715263 TAKE ONE TABLET BY MOUTH DAILY 08/22/2017 06/09/2018 Inactive Toujeo SoloStar 300 unit/mL (1.5 mL) subcutaneous insulin pen RxNorm: 4344570 45 Unit(s) daily 08/17/2017 08/20/2017 Inactive mupirocin 2 % topical ointment RxNorm: 296721 1 Application TOP TID to the lesions on chest 08/16/2017 08/25/2017 Inactive Toujeo SoloStar 300 unit/mL (1.5 mL) subcutaneous insulin pen RxNorm: 5108878 40 Unit(s) daily 08/16/2017 08/16/2017 Inactive valacyclovir 1 gram tablet RxNorm: 642550 1 Tablet(s) PO TID 08/01/2017 Inactive clonazepam 1 mg tablet RxNorm: 120257 1 Tablet(s) PO Q8 as needed 07/03/2017 09/30/2017 Inactive Levaquin 500 mg tablet RxNorm: 938683 1 Tablet(s) PO daily 06/25/2017 Inactive Levaquin 500 mg tablet RxNorm: 469837 1 Tablet(s) PO daily 06/21/2017 Inactive losartan 25 mg tablet RxNorm: 580930 1 Tablet(s) PO daily 201608/16/2017 Inactive nystatin 100,000 unit/mL oral suspension RxNorm: 520897 5 Milliliter(s) PO QID Swish et swallow 06/18/2017 06/17/2017 Inactive nystatin 100,000 unit/mL oral suspension RxNorm: 321959 5 Milliliter(s) PO QID Swish et swallow 06/18/2017 06/27/2017 Inactive Cipro 500 mg tablet RxNorm: 429627 1 Tablet(s) PO BID 201606/18/2017 Inactive Cipro 500 mg tablet RxNorm: 011158 1 Tablet(s) PO BID 201606/11/2017 Inactive Toujeo SoloStar 300 unit/mL (1.5 mL) subcutaneous insulin pen RxNorm: 3177459 INJECT 10 UNITS UNDER THE SKIN DAILY 06/12/2017 08/15/2017 Inactive Keflex 500 mg capsule RxNorm: 155527 1 Capsule(s) PO TID 201606/13/2017 Inactive doxycycline hyclate 100 mg capsule RxNorm: 5543850 1 Capsule(s) PO BID 05/17/2017 05/21/2017 Inactive doxycycline hyclate 100 mg capsule RxNorm: 4980587 1 Capsule(s) PO BID 05/11/2017 05/16/2017 Inactive losartan 25 mg tablet RxNorm: 823441 1 Tablet(s) PO daily 201606/17/2017 Inactive atorvastatin 40 mg tablet RxNorm: 783917 1 Tablet(s) PO daily 03/01/2017 08/23/2017 Inactive clopidogrel 75 mg tablet RxNorm: 683274 1 Tablet(s) PO daily 08/23/2017 Inactive Flonase Allergy Relief 50 mcg/actuation nasal spray, suspension RxNorm: 6346171 2 [place] NASAL daily 02/16/20172016 Inactive Augmentin 875 mg-125 mg tablet RxNorm: 078212 1 Tablet(s) PO BID 02/16/2017 02/22/2017 Inactive GET PROBIOTIC TO TAKE WHILE ON ABX Tamiflu 75 mg capsule RxNorm: 458941 1 Capsule(s) PO BID 201602/20/2017 Inactive ceftriaxone 500 mg solution for injection RxNorm: 0168117 1 Milliliter(s) Inj 02/16/2017 02/16/2017 Inactive Kenalog 40 mg/mL suspension for injection RxNorm: 9696354 1 Milliliter(s) Inj 02/16/2017 02/16/2017 Inactive Toujeo SoloStar 300 unit/mL (1.5 mL) subcutaneous insulin pen RxNorm: 6283834 25 Unit(s) SQ QAM 02/12/2017 06/10/2017 Inactive Toujeo SoloStar 300 unit/mL (1.5 mL) subcutaneous insulin pen RxNorm: 8305885 10 Unit(s) SQ QAM 02/05/2017 02/11/2017 Inactive lisinopril 10 mg tablet RxNorm: 756578 1 Tablet(s) PO daily 02/28/2017 Inactive atorvastatin 40 mg tablet RxNorm: 871840 1 Tablet(s) PO daily 02/01/2017 02/28/2017 Inactive doxycycline hyclate 100 mg capsule RxNorm: 8737909 1 Capsule(s) PO BID 02/01/2017 02/10/2017 Inactive clonazepam 1 mg tablet RxNorm: 631757 1 Tablet(s) PO Q8 as needed 10/09/2016 01/05/2017 Inactive ceftriaxone 1 gram solution for injection RxNorm: 7451248 Inj 10/06/2016 10/06/2016 Inactive cyclobenzaprine 10 mg tablet RxNorm: 617817 1/2-1 Tablet(s) PO TID PRN 07/18/2016 01/28/2017 Inactive clonazepam 1 mg tablet RxNorm: 070694 1 Tablet(s) PO Q8 as needed 05/31/2016 05/29/2016 Inactive clonazepam 1 mg tablet RxNorm: 026046 1 Tablet(s) PO Q8 as needed 05/31/2016 08/28/2016 Inactive Toujeo SoloStar 300 unit/mL (1.5 mL) subcutaneous insulin pen RxNorm: 3833378 10 Unit(s) SQ daily 05/23/2016 01/28/2017 Inactive Crestor 10 mg tablet RxNorm: 759164 1 Tablet(s) PO QHS 201501/28/2017 Inactive Crestor 10 mg tablet RxNorm: 368539 1 Tablet(s) PO QHS 201505/18/2016 Inactive clonazepam 1 mg tablet RxNorm: 924902 1 Tablet(s) PO Q8 as needed 04/25/2016 05/30/2016 Inactive prednisone 20 mg tablet RxNorm: 564353 3 Tablet(s) PO daily 06/201602/10/2016 Inactive prednisone 20 mg tablet RxNorm: 251891 3 Tablet(s) PO daily 06/201605/14/2016 Inactive Kenalog 40 mg/mL suspension for injection RxNorm: 6288482 Milliliter(s) Inj 01/20/2016 01/20/2016 Inactive aspirin 81 mg tablet,delayed release RxNorm: 181260 1 Tablet(s) PO daily No Start Date Active Brilinta 90 mg tablet RxNorm: 2223506 1 Tablet(s) PO BID No Start Date Active acetaminophen 500 mg tablet RxNorm: 081501 1-2 Tablet(s) PO as needed No Start Date Active clopidogrel 75 mg tablet RxNorm: 776306 1 Tablet(s) PO daily No Start Date 02/28/2017 Inactive Novolog Flexpen U-100 Insulin aspart 100 unit/mL subcutaneous RxNorm: 7312786 5 units with breakfast lunch and 10 supper Unit(s) SQ No Start Date 06/17/2018 Inactive clonazepam 1 mg tablet RxNorm: 624011 1 Tablet(s) PO QHS No Start Date 04/24/2016 Inactive Coreg 6.25 mg tablet RxNorm: 510928 1 Tablet(s) PO BID No Start Date 09/29/2018 Inactive acyclovir 400 mg tablet RxNorm: 251824 2 Tablet(s) PO 5x daily No Start Date 02/28/2017 Inactive Lyrica 50 mg capsule RxNorm: 455579 Capsule(s) PO BID No Start Date 06/09/2018 Inactive Vraylar 3 mg capsule RxNorm: 2170728 1 Capsule(s) PO daily No Start Date 03/12/2018 Inactive valsartan 80 mg tablet RxNorm: 924927 1 Tablet(s) PO daily No Start Date 10/22/2018 Inactive Medication Administered Medication Codes Instructions Start Date Status ketorolac 60 mg/2 mL intramuscular solution RxNorm: 2124993 Milliliter 10/21/2018 No longer Active Kenalog 40 mg/mL suspension for injection RxNorm: 5436408 1.5Milliliter 09/30/2018 No longer Active Kenalog 40 mg/mL suspension for injection RxNorm: 6437852 Milliliter 09/11/2018 No longer Active Kenalog 40 mg/mL suspension for injection RxNorm: 4526430 Milliliter 06/28/2018 No longer Active ketorolac 30 mg/mL injection solution RxNorm: 544583 2Milliliter 05/02/2018 No longer Active ceftriaxone 500 mg solution for injection RxNorm: 7828621 1Milliliter 02/16/2017 No longer Active Kenalog 40 mg/mL suspension for injection RxNorm: 3352161 1Milliliter 02/16/2017 No longer Active ceftriaxone 1 gram solution for injection RxNorm: 7721599 10/06/2016 No longer Active Kenalog 40 mg/mL suspension for injection RxNorm: 6490510 Milliliter 01/20/2016 No longer Active Immunizations Vaccine Codes Date Status Influenza CVX: 141 07/22/2018 completed Influenza CVX: 141 08/16/2017 completed Assessments Condition Codes Effective Dates Other fatigue ICD-10: R53.83 ICD-9: 780.79 02/17/2019 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-10: I95.2 ICD-9: 458.8 02/17/2019 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.10 [...] Visit Reason For Visit Effective Dates Notes vertigo 02/17/2019 Hospital Follow Up 01/13/2019 chest [...] Item Item Code Result Date Culture Sputum 115105 LOWER RESPIRATORY TRACT CULTURE SEE NOTES 11/14/2018 Culture Sputum 594681 LOWER RESPIRATORY TRACT CULTURE SEE NOTES 10/16/2018 LIPID GRP 9920261 CHOLESTEROL TNP:Duplicate Order 09/10/2018 LIPID GRP Triglyceride TNP:Duplicate Order 2017 LIPID GRP HDL CHOLESTEROL TNP:Duplicate Order 2017 LIPID GRP Chol/HDL Ratio TNP:Duplicate Order 2017 LIPID GRP LDL Cholesterol TNP:Duplicate Order 2017 A1C HPLC 6344356 Hgb A1c 29889-1 TNP:Duplicate Order 2017 C Diff An [id number] GDH TNP:Lab Request 06/22/2018 C Diff An [id number] Toxin A/B TNP:Lab Request 06/22/2018 C Diff An [id number] C Diff Analyzer TNP:Lab Request 2017 C Diff An [id number] IC OK? TNP:Lab Request 06/22/2018 CBC 0508930 WBC 6.4 10e9/L 05/02/2018 CBC 8523815 RBC 5.60 10e12/L 05/02/2018 CBC 2554755 HEMOGLOBIN 17.0 g/dL 05/02/2018 CBC 0149794 HEMATOCRIT 48.0 % 05/02/2018 CBC 4193322 MCV 85.7 fL 05/02/2018 CBC 1113379 MCH 30.4 pg 05/02/2018 CBC 8324937 MCHC 35.4 g/dL 05/02/2018 CBC 7333912 PLATELET COUNT 166 10e9/L 05/02/2018 CBC 6435189 Mean Plt Volume 11.6 fL 05/02/2018 CBC 3679126 Neut Auto 48.6 % 05/02/2018 CBC 5155191 Lymph Auto 41.7 % 05/02/2018 CBC 7619111 [place] Auto 8.1 % 05/02/2018 CBC 8428577 RDW 13.1 % 05/02/2018 CBC 3003205 Eos Auto 1.1 % 05/02/2018 CBC 3578244 Baso Auto 0.5 % 05/02/2018 CBC 3941150 Neutrophil Abs 3.11 10e9/L 05/02/2018 CBC 3545300 Lymphocyte Abs 2.67 10e9/L 05/02/2018 CBC 1194915 Monocyte Abs 0.52 10e9/L 05/02/2018 CBC 3753840 Eosinophil Abs 0.07 10e9/L 05/02/2018 CBC 0862800 RDW-SD 40.0 fL 05/02/2018 CBC 4288078 Basophil Abs 0.03 10e9/L 05/02/2018 CHEM 14 7208684 AST 17 U/L 05/02/2018 CHEM 14 3844066 ALT 17 U/L 05/02/2018 CHEM 14 3540861 BUN 17 mg/dL 05/02/2018 CHEM 14 6976670 ALBUMIN 4.0 g/dL 05/02/2018 CHEM 14 3661821 CHLORIDE 97 mmol/L 05/02/2018 CHEM 14 0064671 Bili Total 0.9 mg/dL 05/02/2018 CHEM 14 9351427 ALK PHOS 67 U/L 05/02/2018 CHEM 14 7512186 SODIUM 135 mmol/L 05/02/2018 CHEM 14 1516192 CREATININE 1.18 mg/dL 05/02/2018 CHEM 14 9329173 CALCIUM 9.4 mg/dL 05/02/2018 CHEM 14 0298570 POTASSIUM 4.4 mmol/L 05/02/2018 CHEM 14 2467728 TOTAL PROTEIN 6.9 g/dL 05/02/2018 CHEM 14 8819043 GLUCOSE 316 mg/dL 05/02/2018 CHEM 14 0302990 Bicarbonate 29 mmol/L 05/02/2018 CHEM 14 6368737 AGAP 9 mmol/L 05/02/2018 MEAN GLUC 0404019 Calc Mean Gluc 283 mg/dL 05/02/2018 A1C HPLC 0469178 Hgb A1c 02574-8 11.5 % 05/02/2018 GFR CALC 3847140 GFR Non Afr Amr >60 mL/min 05/02/2018 GFR CALC 6189313 GFR Afr Amr >60 mL/min 05/02/2018 JI Gold 7358845 JI Gold Complete 02/28/2018 GFR CALC 9019993 GFR Non Afr Amr >60 mL/min 02/28/2018 GFR CALC 9819789 GFR Afr Amr >60 mL/min 02/28/2018 UA W/CII 5912557 UA Urine Appear Normal 02/28/2018 UA W/CII 1836280 UA Protein 1+ 02/28/2018 UA W/CII 5598102 UA Hemoglobin Negative 02/28/2018 UA W/CII 0643860 UA Glucose 4+ 02/28/2018 UA W/CII 6576124 UA Ketones Trace 02/28/2018 UA W/CII 9268453 UA pH 5.5 02/28/2018 UA W/CII 7920835 U Spec [place] 1.015 02/28/2018 UA W/CII 3410455 UA Bilirubin Negative 02/28/2018 UA W/CII 6115215 UA Nitrite NEG 02/28/2018 UA W/CII 5200074 UA Leuk Esteras Negative 02/28/2018 MICR 1397491 UA WBC/hpf 1 02/28/2018 MICR 0167733 UA RBC hpf 2 02/28/2018 MICR 0139355 UA WBC auto 3.8 /uL 02/28/2018 MICR 7423641 UA RBC auto 12.2 /uL 02/28/2018 MICR 2908500 UA SQ EPI auto 2.3 /uL 02/28/2018 MICR 4310516 UA H Cast auto 0.10 /uL 02/28/2018 CBC 0415796 WBC 6.4 10e9/L 02/28/2018 CBC 3585664 RBC 5.51 10e12/L 02/28/2018 CBC 5160780 HEMOGLOBIN 16.7 g/dL 02/28/2018 CBC 5295448 HEMATOCRIT 46.9 % 02/28/2018 CBC 0171071 MCV 85.1 fL 02/28/2018 CBC 8005583 MCH 30.3 pg 02/28/2018 CBC 9658953 MCHC 35.6 g/dL 02/28/2018 CBC 0340022 PLATELET COUNT 173 10e9/L 02/28/2018 CBC 0588912 Mean Plt Volume 11.6 fL 02/28/2018 CBC 6498996 Neut Auto 51.8 % 02/28/2018 CBC 9005408 Lymph Auto 39.9 % 02/28/2018 CBC 0666413 [place] Auto 7.3 % 02/28/2018 CBC 9338884 RDW 13.3 % 02/28/2018 CBC 5193612 Eos Auto 0.8 % 02/28/2018 CBC 2577840 Baso Auto 0.2 % 02/28/2018 CBC 1952500 Neutrophil Abs 3.32 10e9/L 02/28/2018 CBC 5149385 Lymphocyte Abs 2.55 10e9/L 02/28/2018 CBC 4143817 Monocyte Abs 0.47 10e9/L 02/28/2018 CBC 9259851 Eosinophil Abs 0.05 10e9/L 02/28/2018 CBC 6034447 RDW-SD 40.8 fL 02/28/2018 CBC 8010680 Basophil Abs 0.01 10e9/L 02/28/2018 CHEM 14 3917214 AST 17 U/L 02/28/2018 CHEM 14 8563097 ALT 17 U/L 02/28/2018 CHEM 14 8638642 BUN 20 mg/dL 02/28/2018 CHEM 14 4939424 ALBUMIN 4.1 g/dL 02/28/2018 CHEM 14 9687552 CHLORIDE 97 mmol/L 02/28/2018 CHEM 14 7531520 Bili Total 1.3 mg/dL 02/28/2018 CHEM 14 7395406 ALK PHOS 78 U/L 02/28/2018 CHEM 14 6652353 SODIUM 135 mmol/L 02/28/2018 CHEM 14 4951519 CREATININE 1.09 mg/dL 02/28/2018 CHEM 14 0104188 CALCIUM 9.6 mg/dL 02/28/2018 CHEM 14 5979749 POTASSIUM 3.8 mmol/L 02/28/2018 CHEM 14 9443454 TOTAL PROTEIN 7.3 g/dL 02/28/2018 CHEM 14 0390204 GLUCOSE 349 mg/dL 02/28/2018 CHEM 14 4913191 Bicarbonate 29 mmol/L 02/28/2018 CHEM 14 0182141 AGAP 9 mmol/L 02/28/2018 Notus Spotted Fever Igg/Igm 333520 FEI MT SPOTTED FEVER IGM EIA . 09/05/2017 Notus Spotted Fever Igg/Igm 779200 RMSF, IGM 0.17 index 09/05/2017 Notus Spotted Fever Igg/Igm 643941 FEI MT SPOTTED FEVER IGG EIA FLEX . 09/05/2017 Notus Spotted Fever Igg/Igm 846699 RMSF, IGG SCREEN-FLEX Positive 09/05/2017 Fei Mtn Spot'D Fev Igg 861187 RMSF, IGG -TITER IFA <1:64 11/2016 Ehrlichia Chaffeensis Antibody Igm 207948 EHRLICHIA CHAFFEENSIS IGM < 1:16 09/03/2017 Ehrlichia Chaffeensis Antibody Igg 696769 EHRLICHIA CHAFFEENSIS IGG <1:64 09/03/2017 Lymes Disease Total Antibodies With Western Blot Reflex B. BURGDORFERI, IGG/IGM 0.223 08/30/2017 Lymes Disease Total Antibodies With Western Blot Reflex C-Reactive Protein Qnt Crqnt CRP 0.00 mg/dl 08/27/2017 Sed Rate Ord21 ESR 8 mm/hr 08/27/2017 Comp Metabolic Awh374 NA 135 mEq/L 08/16/2017 Comp Metabolic Ncz558 K 4.1 mEq/L 08/16/2017 Comp Metabolic Fap691 CL 98 mEq/L 08/16/2017 Comp Metabolic Klu211 CO2 28.0 mEq/L 08/16/2017 Comp Metabolic Deb901 ANION GAP 13 08/16/2017 Comp Metabolic Kbr345 GLUCOSE 299 mg/dL 08/16/2017 Comp Metabolic Jsn870 Creat 0.9 mg/dL 08/16/2017 Comp Metabolic Hfi499 eGFR 90 ml/min/1.73m2 08/16/2017 Comp Metabolic Dwv386 BUN 20 mg/dL 08/16/2017 Comp Metabolic Qoz087 B/C Ratio 21.5 Ratio 08/16/2017 Comp Metabolic Yth370 CALCIUM 9.2 mg/dL 08/16/2017 Comp Metabolic Hue010 ALK PHOS 84 U/L 08/16/2017 Comp Metabolic Toe816 AST(SGOT) 19 U/L 08/16/2017 Comp Metabolic Zbh991 ALT(SGPT) 24 U/L 08/16/2017 Comp Metabolic Bww961 BILI T 1.1 mg/dL 08/16/2017 Comp Metabolic Owz722 ALBUMIN 4.2 g/dL 08/16/2017 Comp Metabolic Uzc298 TPRO 7.2 g/dL 08/16/2017 Comp Metabolic Ltl860 GLOB 3.0 g/dL 08/16/2017 Comp Metabolic Tfn567 A/G Ratio 1.4 Ratio 08/16/2017 Comp Metabolic Rpq779 Osmo 284 mOsmo 08/16/2017 %Hba1C Bza232 % HbA1c 64711-7 12.5 % 08/16/2017 %Hba1C Cdl708 Gluc Ave 312 mg/dL 08/16/2017 Urine Culture Ucult Preliminary NO Growth Day 1 06/23/2017 Urine Culture Ucult Complete NO Growth Day 2 06/23/2017 C RAP A SC [id number] Strep A Negative 06/08/2017 %Hba1C Jci033 % HbA1c 76754-2 9.5 % 05/04/2017 %Hba1C Jtc786 Gluc Ave 226 mg/dL 05/04/2017 Tsh Ord6 [...] 31.7 pg 05/04/2017 Cbc With Differential Ord2 [place]% 8.5 % 05/04/2017 Cbc With Differential Ord2 [...] 2.48 K/ul 05/04/2017 Cbc With Differential Ord2 [place] ABS# 0.5 K/ul 05/04/2017 Cbc With Differential Ord2 Eos ABS# 0.1 K/ul 05/04/2017 Cbc With Differential Ord2 Baso ABS# 0.0 K/ul 05/04/2017 Comp Metabolic Xng813 NA 135 mEq/L 05/04/2017 Comp Metabolic Vyn730 K 4.2 mEq/L 05/04/2017 Comp Metabolic Kik187 CL 99 mEq/L 05/04/2017 Comp Metabolic Hll532 CO2 26.0 mEq/L 05/04/2017 Comp Metabolic Itd530 ANION GAP 14 05/04/2017 Comp Metabolic Ord978 GLUCOSE 277 mg/dL 05/04/2017 Comp Metabolic Sxp091 Creat 0.9 mg/dL 05/04/2017 Comp Metabolic Lzv684 eGFR 96 ml/min/1.73m2 05/04/2017 Comp Metabolic Iwq378 BUN 23 mg/dL 05/04/2017 Comp Metabolic Nrm494 B/C Ratio 26.1 Ratio 05/04/2017 Comp Metabolic Pzb441 CALCIUM 8.9 mg/dL 05/04/2017 Comp Metabolic Kiq940 ALK PHOS 81 U/L 05/04/2017 Comp Metabolic Bim466 AST(SGOT) 21 U/L 05/04/2017 Comp Metabolic Gqe694 ALT(SGPT) 27 U/L 05/04/2017 Comp Metabolic Wyl344 BILI T 1.2 mg/dL 05/04/2017 Comp Metabolic Cnt097 ALBUMIN 4.0 g/dL 05/04/2017 Comp Metabolic Bvf282 TPRO 6.7 g/dL 05/04/2017 Comp Metabolic Zdg797 GLOB 2.7 g/dL 05/04/2017 Comp Metabolic Jbx598 A/G Ratio 1.5 Ratio 05/04/2017 Comp Metabolic Jpz703 Osmo 284 mOsmo 05/04/2017 C A/B FLU [id number] Influenza A Scr Negative 02/16/2017 C A/B FLU [id number] Influenza B Scr Positive 02/16/2017 Cbc With [...] 30.3 pg 05/23/2016 Cbc With Differential Ord2 [place]% 8.8 % 05/23/2016 Cbc With Differential Ord2 [...] 2.07 K/ul 05/23/2016 Cbc With Differential Ord2 [place] ABS# 0.5 K/ul 05/23/2016 Cbc With Differential Ord2 Eos ABS# 0.1 K/ul 05/23/2016 Cbc With Differential Ord2 Baso ABS# 0.0 K/ul 05/23/2016 Lipid Ord30 CHOL 397 mg/dL 05/17/2016 Lipid Ord30 HDL 48.0 mg/dl 05/17/2016 Lipid Ord30 TRIG 578 mg/dL 05/17/2016 Lipid Ord30 LDL Unable to calculate Due to elevated triglycerides mg/dL 05/17/2016 Lipid Ord30 C/HDL 8.3 Ratio 05/17/2016 %Hba1C Oba480 % HbA1c 94772-9 12.4 % 05/16/2016 %Hba1C Iye890 Gluc [address] 309 mg/dL 05/16/2016 Cbc With [...] 30.4 pg 05/15/2016 Cbc With Differential Ord2 [place]% 7.8 % 05/15/2016 Cbc With Differential Ord2 [...] 2.04 K/ul 05/15/2016 Cbc With Differential Ord2 [place] ABS# 0.5 K/ul 05/15/2016 Cbc With Differential Ord2 Eos ABS# 0.1 K/ul 05/15/2016 Cbc With Differential Ord2 Baso ABS# 0.0 K/ul 05/15/2016 Tsh Ord6 hTSH II 1.70 uIU/mL 05/15/2016 Comp Metabolic Ezd296 NA 135 mEq/L 05/15/2016 Comp Metabolic Ltn644 K 3.9 mEq/L 05/15/2016 Comp Metabolic Qry001 CL 96 mEq/L 05/15/2016 Comp Metabolic Mpd864 CO2 27.0 mEq/L 05/15/2016 Comp Metabolic Avp468 ANION GAP 16 05/15/2016 Comp Metabolic Uls341 GLUCOSE 183 mg/dL 05/15/2016 Comp Metabolic Pbc253 Creat 1.1 mg/dL 05/15/2016 Comp Metabolic Wqn925 eGFR 71 ml/min/1.73m2 05/15/2016 Comp Metabolic Jdk437 BUN 17 mg/dL 05/15/2016 Comp Metabolic Oub930 B/C Ratio 14.9 Ratio 05/15/2016 Comp Metabolic Qxs192 CALCIUM 9.6 mg/dL 05/15/2016 Comp Metabolic Flq355 ALK PHOS 100 U/L 05/15/2016 Comp Metabolic Tfz353 AST(SGOT) 20 U/L 05/15/2016 Comp Metabolic Vwv224 ALT(SGPT) 20 U/L 05/15/2016 Comp Metabolic Ckv462 BILI T 1.3 mg/dL 05/15/2016 Comp Metabolic Ttx348 ALBUMIN 4.6 g/dL 05/15/2016 Comp Metabolic Lvk646 TPRO 8.1 g/dL 05/15/2016 Comp Metabolic Awc922 GLOB 3.5 g/dL 05/15/2016 Comp Metabolic Jok448 A/G Ratio 1.3 Ratio 05/15/2016 Comp Metabolic Aks163 Osmo 276 mOsmo 05/15/2016 Review of Systems System Result Effective Dates Constitutional recent illness 02/17/2019 Constitutional No anorexia [...] clear 01/13/2019 None Full Exam - General 1995 Eyes conjunctiva /eyelids Overall: eyelids normal 01/13/2019 None Full Exam - General 1995 Ears/Nose/Throat lips/teeth/gingiva Overall: benign lips 01/13/2019 None Full Exam - General 1995 Ears/Nose/Throat [...] Codes Date URINALYSIS NONAUTO W/O SCOPE CPT-4: 49814 02/17/2019 KETOROLAC TROMETHAMINE INJ CPT-4: J1885 10/21/2018 TRIAMCINOLONE ACET INJ NOS CPT-4: J3301 09/30/2018 THER/PROPH/DIAG INJ SC/IM CPT-4: 85289 09/11/2018 TRIAMCINOLONE ACET INJ NOS CPT-4: J3301 09/11/2018 IMMUNIZATION ADMIN CPT -4: 08657 07/22/2018 FLU VAC NO PRSV 4 MENA 3 YRS+ CPT-4: 01383 07/22/2018 TRIAMCINOLONE ACET INJ NOS CPT-4: J3301 06/28/2018 KETOROLAC TROMETHAMINE INJ CPT-4: J1885 05/02/2018 FLU VAC NO PRSV 4 MENA 3 YRS+ CPT-4: 28279 08/16/2017 IMMUNIZATION ADMIN CPT -4: 14978 08/16/2017 URINALYSIS NONAUTO W/O SCOPE CPT-4: 04191 06/21/2017 TRIAMCINOLONE ACET INJ NOS CPT-4: J3301 05/04/2017 THER/PROPH/DIAG INJ SC/IM CPT-4: 02550 05/04/2017 TRIAMCINOLONE ACET INJ NOS CPT-4: J3301 02/16/2017 ROCEPHIN, PER 250 MG CPT-4: J0696 02/16/2017 ROCEPHIN, PER 250 MG CPT-4: J0696 10/06/2016 URINALYSIS NONAUTO W/O SCOPE CPT-4: 97899 07/18/2016 TRIAMCINOLONE ACET INJ NOS CPT-4: J3301 01/20/2016 Vital Signs Date Vital 02/17/2019 Blood Pressure 1: 120/80 Code : 8480-6 Blood Pressure 2: 102/80 Code: 8480-6 Heart Rate 1: 89 bpm SpO2: 96% 01/13/2019 Blood Pressure 1: 120/70 Code : 8480-6 BMI: 34.2 Code : 67449-9 Heart Rate 1 : 74 bpm Height: 6'2" SpO2: 96% Weight: 266 lbs 12/31/2018 Blood Pressure 1: 122/70 Code : 8480-6 BMI: 34.4 Code : 99525-2 Heart Rate 1 : 90 bpm Height: 6'2" SpO2: 97% Temperature: 36.6 (C) / 97.8 (F) Weight: 268 lbs 12/26/2018 Blood Pressure 1: 118/72 Code : 8480-6 BMI: 34.4 Code : 19605-9 Heart Rate 1 : 82 bpm Height: 6'2" SpO2: 98% Temperature: 36.6 (C) / 97.9 (F) Weight: 268 lbs 11/18/2018 Blood Pressure 1: 120/84 Code : 8480-6 BMI: 33.9 Code : 47575-1 Heart Rate 1 : 77 bpm Height: 6'2" SpO2: 99% Temperature: 36.7 (C) / 98.1 (F) Weight: 264 lbs 11/12/2018 Blood Pressure 1: 138/76 Code : 8480-6 BMI: 33.9 Code : 09267-9 Heart Rate 1 : 91 bpm Height: 6'2" SpO2: 99% Weight: 264 lbs 10/30/2018 Blood Pressure 1: 130/72 Code : 8480-6 BMI: 33.3 Code : 39932-1 Heart Rate 1 : 83 bpm Height: 6'2" SpO2: 95% Temperature: 36.5 (C) / 97.7 (F) Weight: 259 lbs 10/24/2018 Blood Pressure 1: 130/70 Code : 8480-6 Heart Rate 1: 95 bpm Height: 6'2" SpO2: 96% 10/23/2018 Blood Pressure 1: 100/70 Code : 8480-6 Blood Pressure 2: 102/70 Code: 8480-6 BMI: 33.3 Code: 83647-5 Heart Rate 1: 106 bpm Height: 6'2" SpO2: 98% Weight: 259 lbs 10/21/2018 Blood Pressure 1: 140/90 Code : 8480-6 BMI: 32.9 Code : 62980-5 Heart Rate 1 : 96 bpm Height: 6'2" SpO2: 92% Weight: 256 lbs 10/17/2018 Blood Pressure 1: 110/68 Code : 8480-6 BMI: 32.9 Code : 73952-3 Heart Rate 1 : 82 bpm Height: 6'2" SpO2: 97% Weight: 256 lbs 10/14/2018 Blood Pressure 1: 124/70 Code : 8480-6 BMI: 33.6 Code : 35961-7 Heart Rate 1 : 76 bpm Height: 6'2" SpO2: 99% Temperature: 36.3 (C) / 97.3 (F) Weight: 262 lbs 09/30/2018 Blood Pressure 1: 138/82 Code : 8480-6 BMI: 33.6 Code : 92403-3 Heart Rate 1 : 82 bpm Height: 6'2" SpO2: 98% Temperature: 36.3 (C) / 97.3 (F) Weight: 262 lbs 09/09/2018 Blood Pressure 1: 140/80 Code : 8480-6 BMI: 33.0 Code : 46862-9 Heart Rate 1 : 97 bpm Height: 6'2" SpO2: 93% Temperature: 36.8 (C) / 98.2 (F) Weight: 257 lbs 07/22/2018 Blood Pressure 1: 120/78 Code : 8480-6 BMI: 31.6 Code : 34610-8 Heart Rate 1 : 87 bpm Height: 6'2" SpO2: 98% Weight: 246 lbs 07/16/2018 Blood Pressure 1: 132/74 Code : 8480-6 BMI: 31.2 Code : 71541-8 Heart Rate 1 : 90 bpm Height: 6'2" SpO2: 96% Weight: 243 lbs 07/01/2018 Blood Pressure 1: 142/82 Code : 8480-6 BMI: 31.8 Code : 70999-0 Heart Rate 1 : 88 bpm Height: 6'2" SpO2: 98% Weight: 248 lbs 06/28/2018 Blood Pressure 1: 132/76 Code : 8480-6 BMI: 31.8 Code : 42387-1 Heart Rate 1 : 107 bpm Height: 6'2" SpO2: 98% Temperature: 37.9 (C) / 100.3 (F) Weight: 248 lbs 06/18/2018 Blood Pressure 1: 138/82 Code : 8480-6 BMI: 31.8 Code : 03395-6 Heart Rate 1 : 82 bpm Height: 6'2" SpO2: 97% Weight: 248 lbs 06/04/2018 Blood Pressure 1: 128/84 Code : 8480-6 BMI: 33.9 Code : 48086-2 Heart Rate 1 : 86 bpm Height: 6'2" SpO2: 95% Weight: 264 lbs 05/13/2018 Blood Pressure 1: 130/80 Code : 8480-6 BMI: 31.1 Code : 08002-1 Heart Rate 1 : 100 bpm Height: 6'2" SpO2: 94% Weight: 242 lbs 05/02/2018 Blood Pressure 1: 134/84 Code : 8480-6 BMI: 31.2 Code : 47851-3 Heart Rate 1 : 93 bpm Height: 6'2" SpO2: 98% Weight: 243 lbs 04/29/2018 Blood Pressure 1: 142/88 Code : 8480-6 BMI: 31.6 Code : 24298-5 Heart Rate 1 : 96 bpm Height: 6'2" SpO2: 96% Temperature: 36.7 (C) / 98.1 (F) Weight: 246 lbs 03/13/2018 Blood Pressure 1: 120/76 Code : 8480-6 BMI: 30.9 Code : 59036-1 Heart Rate 1 : 112 bpm Height: 6'2" SpO2: 97% Weight: 241 lbs 03/07/2018 Blood Pressure 1: 108/78 Code : 8480-6 BMI: 30.0 Code : 39150-8 Heart Rate 1 : 87 bpm Height: 6'2" SpO2: 98% Weight: 234 lbs 02/28/2018 Blood Pressure 1: 106/74 Code : 8480-6 BMI: 30.0 Code : 61849-4 Heart Rate 1 : 101 bpm Height: 6'2" SpO2: 98% Temperature: 36.4 (C) / 97.5 (F) Weight: 234 lbs 02/13/2018 Blood Pressure 1: 110/78 Code : 8480-6 BMI: 30.0 Code : 93340-6 Heart Rate 1 : 106 bpm Height: 6'2" SpO2: 98% Weight: 234 lbs 01/29/2018 Blood Pressure 1: 106/68 Code : 8480-6 BMI: 30.0 Code : 79941-2 Heart Rate 1 : 108 bpm Height: 6'2" SpO2: 98% Weight: 234 lbs 08/27/2017 Blood Pressure 1: 134/76 Code : 8480-6 Heart Rate 1: 98 bpm Height: SpO2: 97% Weight: 08/16/2017 Blood Pressure 1: 128/80 Code : 8480-6 BMI: 32.0 Code : 40175-4 Heart Rate 1 : 94 bpm Height: [...] Code : 8480-6 BMI: 31.8 Code : 60122-7 Heart Rate 1 : 102 bpm Height: [...] Code : 8480-6 BMI: 31.8 Code : 97625-4 Heart Rate 1 : 85 bpm Height: 6'2" SpO2: 96% Temperature: 36.6 (C) / 97.9 (F) Weight: 248 lbs 02/12/2017 Blood Pressure 1: 126/76 Code : 8480-6 BMI: 31.8 Code : 16779-9 Heart Rate 1 : 106 bpm Height: 6'2" SpO2: 91% Weight: 248 lbs 02/05/2017 Blood Pressure 1: 146/86 Code : 8480-6 BMI: 31.9 Code : 88238-3 Heart Rate 1 : 98 bpm Height: 6'2" SpO2: 87% Temperature: 36.7 (C) / 98.0 (F) Weight: 248 lbs 8 oz 01/29/2017 Blood Pressure 1: 132/84 Code : 8480-6 BMI: 31.8 Code : 31410-7 Heart Rate 1 : 83 bpm Height: 6'2" SpO2: 97% Weight: 248 lbs 10/13/2016 Blood Pressure 1: 128/72 Code : 8480-6 Heart Rate 1: 86 bpm SpO2: 94% 10/09/2016 Blood Pressure 1: 128/68 Code : 8480-6 Heart Rate 1: 136 bpm SpO2: 94% Temperature: 36.8 (C) / 98.2 (F) 10/06/2016 Blood Pressure 1: 140/80 Code : 8480-6 BMI: 32.1 Code : 21028-2 Heart Rate 1 : 94 bpm Height: 6'2" SpO2: 95% Weight: 250 lbs 07/18/2016 Blood Pressure 1: 128/86 Code : 8480-6 BMI: 32.1 Code : 98606-0 Heart Rate 1 : 89 bpm Height: 6'2" SpO2: 96% Weight: 250 lbs 06/22/2016 Blood Pressure 1: 118/70 Code : 8480-6 BMI: 32.1 Code : 50218-6 Heart Rate 1 : 70 bpm Height: 6'2" SpO2: 97% Weight: 250 lbs 05/23/2016 Blood Pressure 1: 128/80 Code : 8480-6 BMI: 32.1 Code : 09283-0 Heart Rate 1 : 76 bpm Height: 6'2" SpO2: 98% Weight: 250 lbs 05/15/2016 Blood Pressure 1: 110/90 Code : 8480-6 BMI: 31.3 Code : 08726-0 Heart Rate 1 : 111 bpm Height: 6'2" SpO2: 97% Temperature: 36.6 (C) / 97.8 (F) Weight: 244 lbs 01/20/2016 Blood Pressure 1: 128/76 Code : 8480-6 BMI: 33.0 Code : 02525-5 Heart Rate 1 : 103 bpm Height: 6'2" SpO2: 95% Weight: 257 lbs Functional Status No Functional Status data History of Present Illness Symptom Name Status Result Effective Date Notes Quality intermittent 02/17/2019 None Onset and Resolution [...] None Location on the right 10/21/[address] [facility] Quality throbbing cramping Onset and Resolution sudden [...] data Encounters Encounter Performer Location Codes Date (213 EST. PATIENT, LEVEL III Diagnosis: Hypotension due to drugs[ICD10: I95.2] Diagnosis: Other fatigue[ICD10: R53.83] Marcela Ha MD, [facility] CPT-4: 68162 02/17/2019 ([id number]) 22279 EST. 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 PATIENT, LEVEL IV Diagnosis: Type 2 diabetes mellitus with hyperglycemia[ICD10: E11.65] Diagnosis: Epigastric pain[ICD10: R10.13] Diagnosis: Pain in joints of right hand[ICD10: M25.541] Diagnosis: Shortness of breath[ICD10: R06.02] Marcela Ha MD, [facility] CPT-4: 20983 12/31/2018 48093 EST. PATIENT, LEVEL III Diagnosis: Other chest pain[ICD10: R07.89] Diagnosis: Cough[ICD10: R05] Madeline Ha MD, [facility] CPT-4: 58441 12/26/2018 ([id number]) 53434 EST. PATIENT, LEVEL III Diagnosis: Cough[ICD10: R05] Melida Ha MD, [facility] CPT-4: 20983 11/18/2018 ([id number]) 59030 EST. PATIENT, LEVEL III Diagnosis: Cough[ICD10: R05] Diagnosis: Pneumonia due to other Gram-negative bacteria[ICD10: J15.6] Marcela Ha MD, [facility] CPT-4: 87445 11/12/2018 [id number]) 92960 EST. PATIENT, LEVEL III Diagnosis: Pneumonia due to other Gram-negative bacteria[ICD10: J15.6] Diagnosis: Cough[ICD10: R05] Melida Ha MD [facility] CPT-4: 47168 10/30/2018 ([id number]) 73816 EST. PATIENT, LEVEL II Diagnosis: Pain in joints of right hand[ICD10: M25.541] Diagnosis: Trigger finger, right middle finger[ICD10: M65.331] Marcela Dayo Ha MD, [facility] CPT-4: 99074 10/24/2018 ([id number]) 69864 EST. PATIENT, LEVEL IV Diagnosis: Essential (primary) hypertension[ICD10: I10] Diagnosis: Type 2 diabetes mellitus with foot ulcer[ICD10: E11.621] Melida Ha MD, [facility] CPT-4: 72709 10/23/2018 ([id number]) 73624 EST. PATIENT, LEVEL III Diagnosis: Cellulitis of right finger[ICD10: L03.011] Diagnosis: Type 2 diabetes mellitus with foot ulcer[ICD10: E11.621] Diagnosis: Pain in right hand[ICD10: M79.641] Melida Ha MD, [facility] CPT-4: 81926 10/21/2018 29217 EST. PATIENT, LEVEL III Diagnosis: Spontaneous ecchymoses[ICD10: R23.3] Diagnosis: Cellulitis of right lower limb[ICD10: L03.115] Diagnosis: Cellulitis of left lower limb[ICD10: L03.116] Madeline Ha MD, [facility] CPT-4: 88881 10/17/2018 ([id number]) 09916 EST. PATIENT, LEVEL III Diagnosis: Cough[ICD10: R05] Diagnosis: Acute bronchitis, unspecified[ICD10: J20.9] Melida Ha MD, [facility] CPT-4: 51043 10/14/2018 27049 EST. PATIENT, LEVEL III Diagnosis: Acute laryngopharyngitis[ICD10: J06.0] Diagnosis: Cough[ICD10: R05] Madeline Ha MD, [facility] CPT-4: 48785 09/30/2018 ([id number]) 16011 EST. PATIENT, LEVEL III Diagnosis: Acute recurrent maxillary sinusitis[ICD10: J01.01] Diagnosis: Cough[ICD10: R05] Diagnosis: Type 2 diabetes mellitus with hyperglycemia[ICD10: E11.65] Marcela Ha MD, [facility] CPT-4: 28450 09/09/2018 ([id number]) 20261 EST. PATIENT, LEVEL IV Diagnosis: Essential (primary) hypertension[ICD10: I10] Diagnosis: Mixed hyperlipidemia[ICD10: E78.2] Diagnosis: Bipolar disorder, current episode depressed, moderate[ICD10: F31.32] Diagnosis: Type 2 diabetes mellitus with other specified complication[ICD10: E11.69] Melida Ha MD, [facility] CPT-4: 84428 2017 ([id number]) 82350 EST. PATIENT, LEVEL III Diagnosis: Insomnia due to medical condition[ICD10: G47.01] Marcela Ha MD, [facility] CPT-4: 63581 07/16/2018 ([id number]) Miscellaneous no charge Diagnosis: Cough[ICD10: R05] Madeline Ha MD, [facility] CPT-4: 80369 07/01/2018 27397 EST. PATIENT, LEVEL III Diagnosis: Cough[ICD10: R05] Diagnosis: Acute laryngopharyngitis[ICD10: J06.0] Diagnosis: Other allergic rhinitis[ICD10: J30.89] Madeline Ha MD, [facility] CPT-4: 03677 06/28/2018 ([id number]) 07539 EST. PATIENT, LEVEL IV Diagnosis: Type 2 diabetes mellitus with hyperglycemia[ICD10: E11.65] Diagnosis: Essential (primary) hypertension[ICD10: I10] Melida Ha MD, [facility] CPT-4: 94883 06/18/2018 ([id number]) 95274 EST. PATIENT, LEVEL IV Diagnosis: Type 2 diabetes mellitus with hyperglycemia[ICD10: E11.65] Diagnosis: Essential (primary) hypertension[ICD10: I10] Diagnosis: Localized edema[ICD10: R60.0] Melida Ha MD, [facility] CPT- 4: 49015 06/04/2018 ([id number]) 45494 EST. PATIENT, LEVEL III Diagnosis: Type 2 diabetes mellitus with hyperglycemia[ICD10: E11.65] Diagnosis: Myalgia[ICD10: M79.1] Diagnosis: Pain in right hip[ICD10: M25.551] Diagnosis: Pain in left hip[ICD10: M25.552] Marcela Ha MD, [facility] CPT-4: 95241 05/13/2018 ([id number]) 80273 EST. PATIENT, LEVEL III Diagnosis: Myalgia[ICD10: M79.1] Diagnosis: Pain in right hip[ICD10: M25.551] Diagnosis: Pain in left hip[ICD10: M25.552] Marcela Ha MD, [facility] CPT-4: 42249 05/02/2018 ([id number]) 27310 EST. PATIENT, LEVEL IV Diagnosis: Essential (primary) hypertension[ICD10: I10] Diagnosis: Type 2 diabetes mellitus with hyperglycemia[ICD10: E11.65] Diagnosis: Major depressive disorder, single episode, moderate[ICD10: F32.1] Diagnosis: Myalgia[ICD10: M79.1] Marcela Ha MD, [facility] CPT-4: 04795 04/29/2018 ([id number]) 91035 EST. PATIENT, LEVEL IV Diagnosis: Type 2 diabetes mellitus with hyperglycemia[ICD10: E11.65] Diagnosis: Essential (primary) hypertension[ICD10: I10] Diagnosis: Major depressive disorder, single episode, moderate[ICD10: F32.1] Melida Ha MD, [facility] CPT-4: 33446 03/13/2018 ([id number]) 89851 EST. PATIENT, LEVEL III Diagnosis: Type 2 diabetes mellitus with hyperglycemia[ICD10: E11.65] Diagnosis: Bipolar disorder, current episode depressed, moderate[ICD10: F31.32] Diagnosis: Orthostatic hypotension[ICD10: I95.1] Marcela Ha MD, [facility] CPT-4: 54902 03/07/2018 ([id number]) 64458 EST. PATIENT, LEVEL IV Diagnosis: Type 2 diabetes mellitus with hyperglycemia[ICD10: E11.65] Diagnosis: Major depressive disorder, single episode, moderate[ICD10: F32.1] Diagnosis: Orthostatic hypotension[ICD10: I95.1] Diagnosis: Other fatigue[ICD10: R53.83] Marcela Ha MD, [facility] CPT-4: 52779 02/28/2018 01075 EST. PATIENT, LEVEL IV Diagnosis: Other fatigue[ICD10: R53.83] Diagnosis: Other malaise[ICD10: R53.81] Diagnosis: Gastro-esophageal reflux disease without esophagitis[ICD10: K21.9] Madeline Ha MD, [facility] CPT-4: 10756 02/13/2018 ([id number]) 88144 EST. PATIENT, LEVEL IV Diagnosis: Type 2 diabetes mellitus with foot ulcer[ICD10: E11.621] Diagnosis: Essential (primary) hypertension[ICD10: I10] Diagnosis: Gastro-esophageal reflux disease without esophagitis[ICD10: K21.9] Marcela Ha MD, [facility] CPT-4: 84125 01/29/2018 78925 EST. PATIENT, LEVEL III Diagnosis: Other malaise[ICD10: R53.81] Diagnosis: Other fatigue[ICD10: R53.83] Diagnosis: Pain in right shoulder[ICD10: M25.511] Diagnosis: Pain in left shoulder[ICD10: M25.512] Madeline Ha MD, [facility] CPT-4: 23193 08/27/2017 ([id number]) 31183 EST. PATIENT, LEVEL IV Diagnosis: Essential (primary) hypertension[ICD10: I10] Diagnosis: Type 2 diabetes mellitus with hyperglycemia[ICD10: E11.65] Diagnosis: VACCIN FOR INFLUENZA[ICD10: Z23] eMlida Ha MD, [facility] CPT-4: 80749 08/16/2017 70005 EST. PATIENT, LEVEL III Diagnosis: Zoster without complications[ICD10: B02.9] Madeline Ha MD, [facility] CPT-4: 94486 07/26/2017 ([id number]) 98769 EST. PATIENT, LEVEL III Diagnosis: Cellulitis of right lower limb[ICD10: L03.115] Marcela Ha MD, [facility] CPT-4: 36190 07/03/2017 57952 EST. PATIENT, LEVEL II Diagnosis: Laceration without foreign body of left forearm, initial encounter[ ICD10: S51.812A] Marcela Ha MD, [facility] CPT-4: 00142 06/29/2017 ([id number]) 10194 EST. PATIENT, LEVEL III Diagnosis: Cellulitis of right lower limb[ICD10: L03.115] Diagnosis: Type 2 diabetes mellitus with foot ulcer[ICD10: E11.621] Marcela Ha MD , [facility] CPT-4: 13777 06/18/2017 ([id number]) 33335 EST. PATIENT, LEVEL IV Diagnosis: Cellulitis of right lower limb[ICD10: L03.115] Diagnosis: Acute laryngopharyngitis[ICD10: J06.0] Diagnosis: Gastro-esophageal reflux disease without esophagitis[ICD10: K21.9] Marcela Ha MD, [facility] CPT-4: 33018 06/07/2017 ([id number]) 27510 EST. PATIENT, LEVEL III Diagnosis: Type 2 diabetes mellitus with hyperglycemia[ICD10: E11.65] Diagnosis: Insect bite (nonvenomous) of abdominal wall, initial encounter[ICD10 : S30.861A] Marcela Ha MD, [facility] CPT-4: 53687 05/17/2017 ([id number]) 11288 EST. PATIENT, LEVEL III Diagnosis: Allergic contact dermatitis due to plants, except food[ICD10: L23.7] Melida Ha MD, [facility] CPT-4: 51601 05/04/2017 ([id number]) 89638 EST. PATIENT, LEVEL III Diagnosis: Essential (primary) hypertension[ICD10: I10] Marcela Ha MD, [facility] CPT-4: 73003 03/15/2017 ([id number]) 76163 EST. PATIENT, LEVEL III Diagnosis: Cough[ICD10: R05] Diagnosis: Essential (primary) hypertension[ICD10: I10] Marcela Ha MD, [facility] CPT-4: 12567 03/01/2017 ([id number]) 26173 EST. PATIENT, LEVEL III Diagnosis: Cough[ICD10: R05] Diagnosis: Nasal congestion[ICD10: R09.81] Diagnosis: Acute recurrent maxillary sinusitis[ICD10: J01.01] Marcela Ha MD [facility] CPT-4: 95774 02/16/2017 ([id number]) 26771 EST. PATIENT, LEVEL III Diagnosis: Type 2 diabetes mellitus with hyperglycemia[ICD10: E11.65] Marcela Ha MD [facility] CPT-4: 88520 02/12/2017 ([id number]) 07792 EST. PATIENT, LEVEL IV Diagnosis: Type 2 diabetes mellitus with hyperglycemia[ICD10: E11.65] Diagnosis: Muscle weakness (generalized)[ICD10: M62.81] Diagnosis: Disorientation, unspecified[ICD10: R41.0] Marcela Ha MD [facility] CPT-4: 33172 02/05/2017 ([id number]) Patient admitted to the hospital from clinic (NO CHARGE) Diagnosis: Type 2 diabetes mellitus with hyperglycemia[ICD10: E11.65] Diagnosis: Disorientation, unspecified[ICD10: R41.0] Diagnosis: Muscle weakness (generalized)[ICD10: M62.81] Marcela Ha MD [facility] CPT-4: 08680S 01/29/2017 ([id number]) Miscellaneous no charge Diagnosis: Cellulitis of right lower limb[ICD10: L03.115] Marcela Ha MD [facility] CPT-4: 38277 10/13/2016 ([id number]) Miscellaneous no charge Diagnosis: Type 2 diabetes mellitus with foot ulcer[ICD10: E11.621] Diagnosis: Pain in right foot[ICD10: M79.671] Marcela Ha MD [facility] CPT-4: 43023 10/09/2016 91964 EST. PATIENT, LEVEL II Diagnosis: Cellulitis of right lower limb[ICD10: L03.115] Marcela Ha MD [facility] CPT-4: 50587 10/06/2016 ([id number]) 29587 EST. PATIENT, LEVEL IV Diagnosis: Low back pain[ICD10: M54.5] Diagnosis: Other deformities of toe(s) (acquired), left foot[ICD10: M20.5X2] Diagnosis: Type 2 diabetes mellitus with foot ulcer[ICD10: E11.621] Marcela Ha MD [facility] CPT-4: 40278 07/18/2016 ([id number] 13156 EST. PATIENT, LEVEL III Diagnosis: Type 2 diabetes mellitus with hyperglycemia[ICD10: E11.65] Marcela Ha MD, [facility] CPT-4: 16230 06/22/2016 ([id number]) 35118 EST. PATIENT, LEVEL IV Diagnosis: Type 2 diabetes mellitus with hyperglycemia[ICD10: E11.65] Diagnosis: Mixed hyperlipidemia[ICD10: E78.2] Diagnosis: Other hemoglobinopathies[ICD10: D58.2] Marcela Ha MD, [facility] CPT-4: 10111 05/23/2016 ([id number]) 32908 EST. PATIENT, LEVEL IV Diagnosis: Type 2 diabetes mellitus with other specified complication[ICD10: E11.69] Diagnosis: Dehydration[ICD10: E86.0] Marcela Ha MD, [facility] CPT-4: 43820 05/15/2016 ([id number]) OFFICE VISIT, NEW - LEVEL 3 Diagnosis: Allergic contact dermatitis due to plants, except food[ICD10: L23.7] Madeline Ha MD, [facility] CPT-4: 20908 01/20/2016 Plan of Care Planned Activity Notes Codes Status Date Visit Plan: Orthostasis -decrease coreg -monitor symptoms and follow up in 10 days- sooner if needed Fatigue-check labs 02/17/2019 Appointment: Marcela Oshea WPtel: [address] [place], [place] [phone] (30 min) Complex 02/17/2019 Patient Education: Patient Medication Summary Completed 02/17/2019 Appointment: Marcela Oshea WPtel: [address] [place], [place] [phone] (30 min) Complex 01/14/2019 Visit Plan: Hypertension [...] Summary Completed 01/13/2019 Appointment: Marcela Oshea WPtel: [phone] (30 min) Complex 01/10/2019 Visit Plan: Epigastric pain -start protonix daily- monitor symptoms Chest pain -work up negative done last week with Madeline-recommend appt with Dr Brennan Joint pain-check inflammation makers DM-check Hgb a1c 12/31/2018 Appointment: Marcela Oshea WPtel: [phone] (15 min) Moderate 12/31/2018 Patient Education: Patient Medication Summary Completed 12/31/2018 Visit Plan: chest pain - EKG and cardiac enzymes OK - discussed with Dr. Ha - will treat for pneumonia - pt is to notify clinic if symptoms do not improve, if they worsen, or with any changes questions, or concerns. 12/26/2018 Appointment: Madeline Kennedy WPtel: [facility] (30 min) Complex 12/26/2018 Patient Education: Patient Medication Summary Completed 12/26/2018 Referral: Andrew Cross Patient informed. Referral info faxed. Completed Visit Plan: cough - improved - continue with inhalers - continue with symbicort - rx for proair for PRN use when pt is feelign short of breath with activity. 11/18/2018 Appointment: Melida Ha WPtel: [facility] [place] [id number] (15 min) Moderate 11/18/2018 Patient Education: Patient [...] of plan. 11/12/2018 Appointment: Marcela Oshea WPtel: [facility]5 [phone] (30 min) Complex 11/12/2018 Patient Education: Patient Medication Summary Completed 11/12/2018 Patient Education: Symbicort - 18-64 - eCopay Completed 11/12/2018 Care Plan: Referral Order SNOMED-CT : 846517077 Pending 11/12/2018 Referral: Niko Mantilla Referral Completed 11/04/2018 Visit Plan: Pneumonia, cough - recent diagnosis of Moraxella Cattharalis - with sensitivity to levaquin - will give 2 wks of levaquin since he had improvement but no full resolution of symptoms. 10/30/2018 Appointment: Melida Ha WPtel: [facility]5 [facility] 30 min appointments only in this slot 10/30/2018 Patient Education: Patient Medication Summary Completed 10/30/2018 Visit Plan: Right hand-joint pain and swelling -negative for gout -treated for cellulitis right 2nd mcp joint -now having difficulty with long finger "locking" -Dr Ha in to evaluate patient and tape index and long finger in place-refer to Dr Mantilla for evaluation 10/24/2018 Appointment: Marcela Oshea WPtel: [facility]5 [phone] (30 min) Complex 10/24/2018 Patient Education: Patient Medication Summary Completed 10/24/2018 Care Plan: Referral Order SNOMED-CT : [id number] Pending 10/24/2018 Visit Plan: Hypotension - discussed [...] controlled. 10/23/2018 Appointment: Melida Ha [facility]Ptel: [phone] (15 min) Moderate 10/23/2018 Patient Education: [...] plan. 10/21/2018 Appointment: Marcela Oshea WPtel: [phone] [phone] (30 min) Complex 10/21/2018 Patient Education: Patient [...] discharge. 10/17/2018 Appointment: Madeline Kennedy WPtel: [facility]2 [facility]66[facility] (15 min) Moderate 10/17/2018 Patient Education: Patient [...] worsen. 10/14/2018 Appointment: Marcela Oshea WPtel: [facility]1 [phone] (15 min) Moderate 10/14/2018 Patient Education: Patient Medication Summary Completed 10/14/2018 Care Plan: CHEST X-RAY 2VW FRONTAL&LATL LOINC : 59413-2 Pending 10/14/2018 Visit Plan: URI - Pt [...] allergy spray. 09/30/2018 Appointment: Madeline Kennedy WPtel: [facility]5 [facility] (15 min) Moderate 09/30/2018 Patient [...] A1C 09/09/2018 Appointment: Marcela Oshea WPtel: [facility]5 [phone] (15 min) Moderate 09/09/2018 Patient Education: Patient Medication Summary Completed 09/09/2018 Patient Education: Patient Medication Summary Completed 09/06/2018 Patient Education: Cholesterol Management Completed 09/06/2018 Care Plan: Comp Metabolic Pending 09/06/2018 Care Plan: Cbc With Differential Pending 09/06/2018 Care Plan: %Hba1C LOINC : 80609-3 Pending 09/06/2018 Care Plan: Tsh Pending 09/06/2018 Care Plan: Lipid Pending 09/06/2018 Appointment: Marcela Oshea WPtel: [facility]5 [phone] (15 min) Moderate 08/26/2018 Appointment: Marcela Oshea WPtel: [address] [place], [place] [phone] (15 min) Moderate 08/23/2018 Visit Plan: Hypertension [...] clinic. 07/22/2018 Appointment: Melida Ha WPtel: [phone] [facility] (15 min) Moderate 07/22/2018 Patient [...] insomnia. 07/16/2018 Appointment: Marcela Oshea WPtel: [facility]2 [phone] (30 min) Complex 07/16/2018 Patient Education: Patient Medication Summary Completed 07/16/2018 Visit Plan: cough - improved - notify clinic if symptoms do not completely resolve, or with any questions or concerns. 07/01/2018 Appointment: Madeline Kennedy WPtel: [facility]4 [facility] (15 min) Moderate 07/01/2018 Patient [...] allergy spray. 06/28/2018 Appointment: Madeline Kennedy WPtel: [facility]7 [address] (15 min) Moderate 06/28/2018 Patient Education: [...] at home. 06/18/2018 Appointment: Melida Ha WPtel: [facility]8 [facility]6[address] (15 min) Moderate 06/18/2018 Patient Education: Patient [...] improves. 06/04/2018 Appointment: Melida Ha WPtel: [phone] [facility] (15 min) Moderate 06/04/2018 Patient Education: [...] allow for greater blood glucose control. Joint fbha-xvcpnwhb-gxhxkdc- symptoms have improved -stop meloxicam due to upset stomach-call if symptoms return 05/13/2018 Appointment: Marcel[facility]a WPtel: 101 [phone] [place] (30 min) Complex 05/13/2018 Patient Education: Patient Medication Summary Completed 05/13/2018 Visit Plan: Bilateral hip upip-vuhwccnk-hvcwotm IM injection administered today for c/o continued myalgia/arthralgia. Patient to start taking Meloxicam 15mg PO daily. Advised to return to clinic if symptoms do not improve. 05/02/2018 Appointment: Marcela Oshea WPtel: [phone] [phone] (30 min) Complex 05/02/2018 Patient [...] readings at home. Diabetes Mellitus -check labs Ihewmcmq-tpdxlej-soif bite-rx for doxycycline-follow up in 2 weeks 04/29/2018 Appointment: Marcela Oshea WPtel: [phone] [phone] [place] (15 min) Moderate 04/29/2018 Patient Education: Patient Medication Summary Completed 04/29/2018 Appointment: Melida Ha WPtel: [phone] [facility] [place] (15 min) Moderate 04/15/2018 Appointment: Marcela Oshea WPtel: [phone] [phone] [place] (30 min) Complex 03/21/2018 [...] cymbalta 03/13/2018 Appointment: Melida Ha WPtel: [phone] [facility] [place] (30 min) Complex 03/13/2018 Patient Education: Patient Medication Summary Completed 03/13/2018 Visit Plan: DM-continue same medications-monitor blood sugars routinely as directed -rx for new glucometer and test strips provided Bipolar-currently depressed-patient start on vraylar-follow up in 2 weeks, sooner if needed. Patient and verbalied understanding of plan. Hypotension- stay off losartan 03/07/2018 Appointment: Marcela Oshea WPtel: [phone] [phone] (30 min) Complex 03/07/2018 Patient Education: Patient Medication Summary Completed 03/07/2018 Appointment: Melida Ha WPtel: [phone] [facility] (15 min) Moderate 03/04/2018 Visit [...] patient. 02/28/2018 Appointment: Marcela Oshea WPtel: [phone] [phone] (30 min) Complex 02/28/2018 Patient Education: Patient [...] improving. 02/13/2018 Appointment: Madeline Kennedy WPtel: [facility]5 [facility] (15 min) Moderate 02/13/2018 Patient Education: Patient Medication Summary Completed 02/13/2018 Referral: Sun Glynn Patient informed. Referral info faxed. Completed Visit Plan: DM-weight loss-not checking blood sugars- patient sent for labs today HTN-low znzpd-uwmpxpl-xljfm labs Callus of foot and fissue of heel-refer to Dr Glynn for evaluation Esophageal Reflux - the patient has been counseled against excessive intake of caffeine, spicy foods, peppermint , and cinnamon - all of which can exacerbate esophageal reflux. The patient is to take medications as prescribed and call the office if the symptoms are not improving. 01/29/2018 Appointment: Marcela Oshea WPtel: [address] [place], [place] [phone] (30 min) Complex 01/29/2018 Patient Education: Patient Medication Summary Completed 01/29/2018 Care Plan: Comp Metabolic Cancelled 01/29/2018 Care Plan: Cbc With Differential Cancelled 01/29/2018 Care Plan: %Hba1C LOINC : 73494-1 Cancelled 01/29/2018 Care Plan: Referral Order SNOMED-CT : [id number] Cancelled 01/29/2018 Visit Plan: Fatigue, malaise, joint [...] concerns. 08/27/2017 Appointment: Madeline Kennedy WPtel: [facility] (15 min) Moderate 08/27/2017 Patient [...] - 08/16/2017 Appointment: Melida Ha WPtel: [phone] [facility]6[address] (30 min) Complex 08/16/2017 Patient Education: Patient Medication Summary Completed 08/16/2017 Patient Education: Obesity Completed 08/16/2017 Appointment: Madeline Kennedy WPtel: [phone] [facility] (30 min) Complex 08/07/2017 Visit [...] contagious. 07/26/2017 Appointment: Madeline Kennedy WPtel: [phone] [phone] (15 min) Moderate 07/26/2017 Patient Education: Patient Medication Summary Completed 07/26/2017 Visit Plan: Cellulitis right foot-cultured today in the office-home health to reapply wound vac--appt with wound care on to evaluate for debridement- 07/03/2017 Appointment: Marcela Oshea WPtel: [phone] [phone] (30 min) Complex 07/03/2017 Patient Education: Patient Medication Summary Completed 07/03/2017 Visit Plan: Abrasion left arm - Pt was instructed to keep the wound clean, wash with antibacterial soap, use triple antibiotic ointment, call if redness, pustular drainage, or any other acute concerns. 06/29/2017 Appointment: Marcela Oshea WPtel: [address] [place], [place] [phone] (15 min) Moderate 06/29/2017 Patient Education: Patient [...] of plan. 06/18/2017 Appointment: Marcela Oshea WPtel: [address] [place], [place] [phone] (15 min) Moderate 06/18/2017 Patient Education: Patient [...] diet-start prilosec 06/07/2017 Appointment: Marcela Oshea WPtel: [address] [place], [place] [phone] [place] (10 min) Simple 06/07/2017 Patient Education: [...] doxycycline 05/17/2017 Appointment: Marcela Oshea WPtel: [phone] [phone] (30 min) Complex 05/17/2017 Patient Education: [...] [facility] Center. 05/04/2017 Appointment: Marcela Oshea WPtel: [facility]4 [phone] (30 min) Complex 05/04/2017 Patient Education: Patient [...] Cough-resolved 03/15/2017 Appointment: Marcela Oshea WPtel: [phone] [phone] (15 min) Moderate 03/15/2017 Patient Education: Patient Medication Summary Completed 03/15/2017 Appointment: Marcela Oshea WPtel: [facility]5 [phone] (30 min) Complex 03/12/2017 Visit [...] as discussed 02/16/2017 Appointment: Marcela Oshea WPtel: [facility]6 [phone] (15 min) Moderate 02/16/2017 Patient Education: Patient [...] controlled. 02/12/2017 Appointment: Marcela Oshea WPtel: [facility]5 [phone] (30 min) Complex 02/12/2017 Patient Education: Patient Medication Summary Completed 02/12/2017 Appointment: Marcela Oshea WPtel: [facility]5 [phone] (30 min) Complex 02/06/2017 Visit [...] consider 02/05/2017 Appointment: Marcela Oshea WPtel: [phone] [phone] (30 min) Complex 02/05/2017 Patient Education: Patient Medication Summary Completed 02/05/2017 Appointment: Marcela Oshea WPtel: [phone] [phone] [place] (30 min) Complex 01/30/2017 Visit Plan: Acute confusion-uncontrolled diabetes- chronically noncompliant with treatment and stopped his insulin several months ago-r/o stroke vs DKA-Dr Ha in to evaluate patient-plan to admit for further work up and treatment-patient's called and she transported him to the hospital 01/29/2017 Appointment: Marcela Oshea WPtel: [facility]0 [phone] [place] (30 min) Complex 01/29/2017 Patient Education: Patient Medication Summary Completed 01/29/2017 Patient Education: Obesity Completed 01/29/2017 Visit Plan: Right foot pain-MRI shows foreign body-appt with Dr Grewal for evaluation on Sunday. 10/13/2016 Appointment: Marcela Oshea WPtel: [facility]5 [phone] [place] (15 min) Moderate 10/13/2016 Patient Education: Patient Medication Summary Completed 10/13/2016 Appointment: Marcela Oshea WPtel: [facility]3 [phone] [place] (30 min) Complex 10/12/2016 Visit Plan: Right foot lbch-stwrnqpv-qcszk washer dropped on foot-xray negative but pain continues to increase-recommend MRI of foot for further evaluation-refer to wound care for lesions on right foot, patient has diabetes and history of osteomyelitis-culture obtained today-continue oral abx- follow up in the office on , sooner if needed 10/09/2016 Visit Plan: Right foot rykp-kytwaxbj-ysscg washer dropped on foot-xray negative but pain continues to increase-recommend MRI of foot for further evaluation-refer to wound care for lesions on right foot, patient has diabetes and history of osteomyelitis-culture obtained today-continue oral abx- follow up in the office on , sooner if needed 10/09/2016 Visit Plan: Right foot quta-iuqegdid-wqbiq washer dropped on foot-xray negative but pain continues to increase-recommend MRI of foot for further evaluation-refer to wound care for lesions on right foot, patient has diabetes and history of osteomyelitis-culture obtained today-continue oral abx- follow up in the office on , sooner if needed 10/09/2016 Appointment: Marcela Oshea WPtel: [address] [place] [address] (30 min) Complex 10/09/2016 Patient Education: Patient Medication Summary Completed 10/09/2016 Visit Plan: Cellulitis - continue with oral antibiotics as previously directed, return to clinic as previously directed, call for acute change in symptoms, worsening redness, warmth, discharge. 10/06/2016 Appointment: Marcela Oshea WPtel: [address] [place] [address] (10 min) Simple 10/06/2016 Patient Education: Patient Medication Summary Completed 10/06/2016 Appointment: Marcela Oshea WPtel: [address] [place] [address] (30 min) Complex 08/24/2016 Referral: Sun Glynn [...] for evaluation 07/18/2016 Appointment: Marcela Oshea WPtel: [address] [place], [place] [phone] (30 min) Complex 07/18/2016 Patient Education: Patient Medication Summary Completed 07/18/2016 Patient Education: Obesity Completed 07/18/2016 Care Plan: Referral Order SNOMED-CT : [id number] Cancelled 07/18/2016 Visit Plan: Diabetes Mellitus - [...] control. 06/22/2016 Appointment: Marcela Oshea WPtel: [phone] [phone] (30 min) Complex 06/22/2016 Patient [...] today 05/23/2016 Appointment: Marcela Oshea WPtel: [phone] [phone] (30 min) Complex 05/23/2016 Patient [...] of plan. 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 Low back pain- history of spinal [...] for fracture from injury . Right foot dymq-vphzbqsh-gdngb washer dropped on foot-xray negative but pain [...] for fracture from injury . Right foot cymt-uexbjkko-ujlns washer dropped on foot-xray negative but pain [...] for fracture from injury . Right foot pykd-pdipjzwn-fregd washer dropped on foot-xray negative but pain [...] if needed Fatigue-check labs . Bilateral hip bchj-luiahvjf-ebaxttk IM injection administered today for c/o continued myalgia/arthralgia. Patient to start taking Meloxicam 15mg PO daily. Advised to return to clinic if symptoms do not improve. . DM-weight loss-not checking blood sugars-patient sent for labs today HTN-low lhfkm-zpgqcse-najhe labs Callus of foot and fissue of [...] readings are starting to become less controlled. Eeqgivlpl-uwwiepsx-quswjavc to monitor Generalized weakness-refer for PT-patient refuses [...] allow for greater blood glucose control. Joint lhbw-ribszoyp-ucgxead-symptoms have improved -stop meloxicam due to upset [...] readings at home. Diabetes Mellitus -check labs Nlbwtmss-skcmuaa-mhix bite-rx for doxycycline-follow up in 2 weeks [...]
--- OUTSIDE RECORDS SUMMARY | 2019-03-10 09:50 | XMS REPORT | CCD ---
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 [employer] [id number] Unknown Family history Father Diagnosis Age At Onset Hyperlipidemia Unknown Heart Attack Unknown Mother Diagnosis Age At Onset Hypertension Unknown Social History Social History Element Codes Description Effective Dates Marital status Unknown Mignon 01/20/2016 Number of children Unknown 4 01/20/2016 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/[address]: 044162089 Never smoker 01/20/[address]: 650171480 Never drinks alcohol 01/20/2016 Allergies, Adverse Reactions, Alerts Substance Reaction Codes Entered Date Inactivated Date Status * NO KNOWN DRUG ALLERGIES Unknown 05/23/2016 No Inactive Date Active Past Medical History Illness Codes Condition Status Onset Date Resolved Date 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 ICD-10: I95.2 Active 02/17/2019 Unknown Other fatigue ICD-9: 780.79 ICD-10: R53.83 Active 08/27/2017 Unknown 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 [...] R53.83 08/27/2017 Active 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 [...] Date Stop Date Status Fill Instructions Cymbalta 60 mg capsule,delayed release RxNorm: 164917 1 Capsule(s) PO QAM 02/19/2019 09/16/2019 Active will call for refill- dose change Coreg 6.25 mg tablet RxNorm: 118290 1 Tablet(s) daily 201808/17/2019 Active clonazepam 1 mg tablet RxNorm: 622820 2 Tablet(s) PO HS 201806/14/2019 Active Tresiba FlexTouch U-200 insulin 200 unit/mL (3 mL) subcutaneous pen RxNorm: 4057356 50 Unit(s) SQ daily 01/08/2019 05/07/2019 Active please give him 30 day supply Protonix 40 mg tablet,delayed release RxNorm: 816141 1 Tablet(s) PO daily 12/31/2018 01/29/2019 Inactive Tresiba FlexTouch U-200 insulin 200 unit/mL (3 mL) subcutaneous pen RxNorm: 8704497 50 Unit(s) SQ daily 12/31/2018 01/07/2019 Inactive please give him 30 day supply Augmentin 500 mg-125 mg tablet RxNorm: 352852 1 Tablet(s) PO TID 12/26/2018 01/04/2019 Inactive Augmentin 500 mg-125 mg tablet RxNorm: 342072 1 Tablet(s) PO TID 12/26/2018 12/25/2018 Inactive ProAir HFA 90 mcg/actuation aerosol inhaler RxNorm: 0751332 2 Puff(s) INH QID as needed 11/18/2018 No Stop Date Active Lyrica 50 mg capsule RxNorm: 652010 Capsule(s) PO daily 201802/08/2019 Inactive Cymbalta 30 mg capsule,delayed release RxNorm: 452996 1 Capsule(s) PO QAM 11/13/2018 02/18/2019 Inactive Lyrica 50 mg capsule RxNorm: 270416 Capsule(s) PO daily 201811/12/2018 Inactive Symbicort 160 mcg-4.5 mcg/actuation HFA aerosol inhaler RxNorm: 3566704 2 Puff(s) INH BID 11/12/2018 12/11/2018 Inactive albuterol sulfate 2.5 mg/3 mL (0.083 %) solution for nebulization RxNorm: 793531 3 Milliliter(s) INH UD 11/07/2018 No Stop Date Active azithromycin 500 mg tablet RxNorm: 434467 500mg on day 1 then 250 mg daily x 4 more day Tablet(s) PO 11/07/20182018 Inactive 500mg on day 1 and then 250mg daily 2-4 cefdinir 300 mg capsule RxNorm: 090802 1 Capsule(s) PO BID 01/201911/06/2018 Inactive azithromycin 500 mg tablet RxNorm: 738394 500mg on day 1 then 250 mg daily x 4 more day Tablet(s) PO 11/07/20182018 Inactive 500mg on day 1 and then 250mg daily 2-4 cefdinir 300 mg capsule RxNorm: 205981 1 Capsule(s) PO BID 01/201911/13/2018 Inactive Levaquin 500 mg tablet RxNorm: 429288 1 Tablet(s) PO daily TAKE ONE TABLET BY MOUTH DAILY UNTIL GONE 10/31/20182018 Inactive Levaquin 500 mg tablet RxNorm: 364462 1 Tablet(s) PO daily 11/12/2018 Inactive valsartan 80 mg tablet RxNorm: 471286 1/2 Tablet(s) PO daily 04/20/2019 Active doxycycline hyclate 100 mg tablet RxNorm: 5393372 1 Tablet(s) PO BID 10/21/2018 10/27/2018 Inactive ketorolac 60 mg/2 mL intramuscular solution RxNorm: 5180120 Milliliter(s) IM 10/21/2018 10/21/2018 Inactive Levaquin 500 mg tablet RxNorm: 789382 1 Tablet(s) PO daily 10/31/2018 Inactive Tessalon Perles 100 mg capsule RxNorm: 866593 1-2 Capsule(s) PO TID PRN 10/14/2018 No Stop Date Active albuterol sulfate 2.5 mg/3 mL (0.083 %) solution for nebulization RxNorm: 751496 3 Milliliter(s) INH UD 10/14/201812/2018 Inactive Levaquin 500 mg tablet RxNorm: 217804 1 Tablet(s) PO daily 08/201810/16/2018 Inactive albuterol sulfate 2.5 mg/3 mL (0.083 %) solution for nebulization RxNorm: 011139 3 Milliliter(s) INH UD 09/30/201807/2018 Inactive Kenalog 40 mg/mL suspension for injection RxNorm: 1626476 1.5 Milliliter(s) Inj 09/30/2018 09/30/2018 Inactive Coreg 6.25 mg tablet RxNorm: 622752 TAKE ONE TABLET BY MOUTH TWICE A DAY 09/30/2018 02/18/2019 Inactive Keflex 500 mg capsule RxNorm: 450869 1 Capsule(s) PO TID 201710/03/2018 Inactive prednisone 20 mg tablet RxNorm: 511084 2 Tablet(s) PO daily 09/29/2018 Inactive Kenalog 40 mg/mL suspension for injection RxNorm: 8122538 Milliliter(s) Inj 09/11/2018 09/11/2018 Inactive Zyrtec 10 mg tablet RxNorm: 5388223 1 Tablet(s) PO daily 09/0910/08/2018 Inactive Keflex 500 mg capsule RxNorm: 123850 1 Capsule(s) PO TID 201709/15/2018 Inactive Tresiba FlexTouch U-200 insulin 200 unit/mL (3 mL) subcutaneous pen RxNorm: 9877770 50 Unit(s) SQ daily 08/30/2018 08/29/2018 Inactive please give him 30 day supply Tresiba FlexTouch U-200 insulin 200 unit/mL (3 mL) subcutaneous pen RxNorm: 8242130 50 Unit(s) SQ daily 08/30/2018 09/28/2018 Inactive please give him 30 day supply Novolog Flexpen U-100 Insulin aspart 100 unit/mL subcutaneous RxNorm: 6615735 8 Unit(s) SQ AC 08/13/2018 No Stop Date Active Novolog Flexpen U-100 Insulin aspart 100 unit/mL subcutaneous RxNorm: 6678280 8 Unit(s) SQ AC 07/22/20182017 Inactive this is an update on his medication Novolog Flexpen U-100 Insulin aspart 100 unit/mL subcutaneous RxNorm: 3207195 12 Unit(s) SQ AC 07/05/20182017 Inactive this is an update on his medication Toujeo SoloStar U-300 Insulin 300 unit/mL (1.5 mL) subcutaneous pen RxNorm: 7248178 INJECT 50 UNITS UNDER THE SKIN DAILY 07/01/2018 08/29/2018 Inactive Mucinex 600 mg tablet, extended release RxNorm: 040682 1 Tablet(s) PO BID 06/28/2018 07/04/2018 Inactive Zofran 4 mg tablet RxNorm: 532183 1 Tablet(s) PO TID as needed nausea 06/28/2018 07/02/2018 Inactive Kenalog 40 mg/mL suspension for injection RxNorm: 1180156 Milliliter(s) Inj 06/28/2018 06/28/2018 Inactive Flonase Allergy Relief 50 mcg/actuation nasal spray, suspension RxNorm: 8586243 1 [place] NASAL BID 06/28/20182017 Inactive Lyrica 50 mg capsule RxNorm: 887503 Capsule(s) PO daily 201707/06/2018 Inactive Novolog Flexpen U-100 Insulin aspart 100 unit/mL subcutaneous RxNorm: 2444120 10 Unit(s) SQ AC 06/18/20182017 Inactive this is an update on his medication Lasix 20 mg tablet RxNorm: 502038 1 Tablet(s) PO BIW 201707/02/2018 Inactive atorvastatin 80 mg tablet RxNorm: 571481 1 Tablet(s) PO QHS 04/201812/06/2018 Inactive clonazepam 1 mg tablet RxNorm: 235382 2 Tablet(s) PO HS as needed 06/10/2018 06/08/2018 Inactive clonazepam 1 mg tablet RxNorm: 171176 2 Tablet(s) PO HS 201702/17/2019 Inactive Lyrica 50 mg capsule RxNorm: 521643 Capsule(s) PO daily 201707/08/2018 Inactive Lasix 20 mg tablet RxNorm: 623811 1 Tablet(s) PO TIW 201706/11/2018 Inactive Toujeo SoloStar U-300 Insulin 300 unit/mL (1.5 mL) subcutaneous pen RxNorm: 4521739 50 Unit(s) SQ daily 05/07/2018 06/30/2018 Inactive meloxicam 15 mg tablet RxNorm: 657291 15 Milligram(s) PO daily 05/02/2018 05/12/2018 Inactive ketorolac 30 mg/mL injection solution RxNorm: 410982 2 Milliliter(s) Inj 05/02/2018 05/02/2018 Inactive Toujeo SoloStar U-300 Insulin 300 unit/mL (1.5 mL) subcutaneous pen RxNorm: 5740958 45 Unit(s) daily 04/29/2018 Inactive clonazepam 1 mg tablet RxNorm: 284076 1 Tablet(s) PO Q8 as needed 04/29/2018 06/09/2018 Inactive doxycycline hyclate 100 mg tablet RxNorm: 8530421 1 Tablet(s) PO BID 04/29/2018 05/12/2018 Inactive Cymbalta 30 mg capsule,delayed release RxNorm: 623984 1 Capsule(s) PO QAM 03/13/2018 10/08/2018 Inactive Lexapro 10 mg tablet RxNorm: 902017 1 Tablet(s) PO QPM 201703/03/2018 Inactive Toujeo SoloStar U-300 Insulin 300 unit/mL (1.5 mL) subcutaneous pen RxNorm: 3703514 20 Unit(s) daily 02/28/2018 Inactive Protonix 40 mg tablet,delayed release RxNorm: 594789 1 Tablet(s) PO daily 01/29/2018 06/09/2018 Inactive clonazepam 1 mg tablet RxNorm: 538595 1 Tablet(s) PO Q8 as needed 12/12/2017 03/10/2018 Inactive Tamiflu 75 mg capsule RxNorm: 645035 1 Capsule(s) PO BID 201712/03/2017 Inactive doxycycline hyclate 100 mg capsule RxNorm: 3869348 1 Capsule(s) PO BID 09/07/2017 09/20/2017 Inactive doxycycline hyclate 100 mg capsule RxNorm: 9270174 1 Capsule(s) PO BID 08/27/2017 09/06/2017 Inactive prednisone 20 mg tablet RxNorm: 614474 2 Tablet(s) PO daily 08/31/2017 Inactive clopidogrel 75 mg tablet RxNorm: 910305 1 Tablet(s) PO daily 06/09/2018 Inactive atorvastatin 40 mg tablet RxNorm: 311035 1 Tablet(s) PO QHS 02/27/2018 Inactive losartan 25 mg tablet RxNorm: 465945 TAKE ONE TABLET BY MOUTH DAILY 08/22/2017 06/09/2018 Inactive Toujeo SoloStar 300 unit/mL (1.5 mL) subcutaneous insulin pen RxNorm: 0616054 45 Unit(s) daily 08/17/2017 08/20/2017 Inactive mupirocin 2 % topical ointment RxNorm: 177697 1 Application TOP TID to the lesions on chest 08/16/2017 08/25/2017 Inactive Toujeo SoloStar 300 unit/mL (1.5 mL) subcutaneous insulin pen RxNorm: 6934014 40 Unit(s) daily 08/16/2017 08/16/2017 Inactive valacyclovir 1 gram tablet RxNorm: 077133 1 Tablet(s) PO TID 08/01/2017 Inactive clonazepam 1 mg tablet RxNorm: 354222 1 Tablet(s) PO Q8 as needed 07/03/2017 09/30/2017 Inactive Levaquin 500 mg tablet RxNorm: 112004 1 Tablet(s) PO daily 06/25/2017 Inactive Levaquin 500 mg tablet RxNorm: 807069 1 Tablet(s) PO daily 06/21/2017 Inactive losartan 25 mg tablet RxNorm: 158675 1 Tablet(s) PO daily 201608/16/2017 Inactive nystatin 100,000 unit/mL oral suspension RxNorm: 589435 5 Milliliter(s) PO QID Swish et swallow 06/18/2017 06/17/2017 Inactive nystatin 100,000 unit/mL oral suspension RxNorm: 355798 5 Milliliter(s) PO QID Swish et swallow 06/18/2017 06/27/2017 Inactive Cipro 500 mg tablet RxNorm: 788612 1 Tablet(s) PO BID 201606/18/2017 Inactive Cipro 500 mg tablet RxNorm: 321146 1 Tablet(s) PO BID 201606/11/2017 Inactive Toujeo SoloStar 300 unit/mL (1.5 mL) subcutaneous insulin pen RxNorm: 7948509 INJECT 10 UNITS UNDER THE SKIN DAILY 06/12/2017 08/15/2017 Inactive Keflex 500 mg capsule RxNorm: 495889 1 Capsule(s) PO TID 201606/13/2017 Inactive doxycycline hyclate 100 mg capsule RxNorm: 4557299 1 Capsule(s) PO BID 05/17/2017 05/21/2017 Inactive doxycycline hyclate 100 mg capsule RxNorm: 3024971 1 Capsule(s) PO BID 05/11/2017 05/16/2017 Inactive losartan 25 mg tablet RxNorm: 901455 1 Tablet(s) PO daily 201606/17/2017 Inactive atorvastatin 40 mg tablet RxNorm: 210528 1 Tablet(s) PO daily 03/01/2017 08/23/2017 Inactive clopidogrel 75 mg tablet RxNorm: 759158 1 Tablet(s) PO daily 08/23/2017 Inactive Flonase Allergy Relief 50 mcg/actuation nasal spray, suspension RxNorm: 6210717 2 [place] NASAL daily 02/16/20172016 Inactive Augmentin 875 mg-125 mg tablet RxNorm: 371517 1 Tablet(s) PO BID 02/16/2017 02/22/2017 Inactive GET PROBIOTIC TO TAKE WHILE ON ABX Tamiflu 75 mg capsule RxNorm: 088767 1 Capsule(s) PO BID 201602/20/2017 Inactive ceftriaxone 500 mg solution for injection RxNorm: 4920295 1 Milliliter(s) Inj 02/16/2017 02/16/2017 Inactive Kenalog 40 mg/mL suspension for injection RxNorm: 2580208 1 Milliliter(s) Inj 02/16/2017 02/16/2017 Inactive Toujeo SoloStar 300 unit/mL (1.5 mL) subcutaneous insulin pen RxNorm: 5027991 25 Unit(s) SQ QAM 02/12/2017 06/10/2017 Inactive Toujeo SoloStar 300 unit/mL (1.5 mL) subcutaneous insulin pen RxNorm: 0728519 10 Unit(s) SQ QAM 02/05/2017 02/11/2017 Inactive lisinopril 10 mg tablet RxNorm: 623455 1 Tablet(s) PO daily 02/28/2017 Inactive atorvastatin 40 mg tablet RxNorm: 186775 1 Tablet(s) PO daily 02/01/2017 02/28/2017 Inactive doxycycline hyclate 100 mg capsule RxNorm: 9679009 1 Capsule(s) PO BID 02/01/2017 02/10/2017 Inactive clonazepam 1 mg tablet RxNorm: 718203 1 Tablet(s) PO Q8 as needed 10/09/2016 01/05/2017 Inactive ceftriaxone 1 gram solution for injection RxNorm: 5750355 Inj 10/06/2016 10/06/2016 Inactive cyclobenzaprine 10 mg tablet RxNorm: 083026 1/2-1 Tablet(s) PO TID PRN 07/18/2016 01/28/2017 Inactive clonazepam 1 mg tablet RxNorm: 850867 1 Tablet(s) PO Q8 as needed 05/31/2016 05/29/2016 Inactive clonazepam 1 mg tablet RxNorm: 080322 1 Tablet(s) PO Q8 as needed 05/31/2016 08/28/2016 Inactive Toujeo SoloStar 300 unit/mL (1.5 mL) subcutaneous insulin pen RxNorm: 3511445 10 Unit(s) SQ daily 05/23/2016 01/28/2017 Inactive Crestor 10 mg tablet RxNorm: 983688 1 Tablet(s) PO QHS 201501/28/2017 Inactive Crestor 10 mg tablet RxNorm: 709179 1 Tablet(s) PO QHS 201505/18/2016 Inactive clonazepam 1 mg tablet RxNorm: 885589 1 Tablet(s) PO Q8 as needed 04/25/2016 05/30/2016 Inactive prednisone 20 mg tablet RxNorm: 460177 3 Tablet(s) PO daily 06/201602/10/2016 Inactive prednisone 20 mg tablet RxNorm: 624189 3 Tablet(s) PO daily 06/201605/14/2016 Inactive Kenalog 40 mg/mL suspension for injection RxNorm: 5149003 Milliliter(s) Inj 01/20/2016 01/20/2016 Inactive aspirin 81 mg tablet,delayed release RxNorm: 825339 1 Tablet(s) PO daily No Start Date Active Brilinta 90 mg tablet RxNorm: 7127403 1 Tablet(s) PO BID No Start Date Active acetaminophen 500 mg tablet RxNorm: 720968 1-2 Tablet(s) PO as needed No Start Date Active clopidogrel 75 mg tablet RxNorm: 539670 1 Tablet(s) PO daily No Start Date 02/28/2017 Inactive Novolog Flexpen U-100 Insulin aspart 100 unit/mL subcutaneous RxNorm: 4007094 5 units with breakfast lunch and 10 supper Unit(s) SQ No Start Date 06/17/2018 Inactive clonazepam 1 mg tablet RxNorm: 325817 1 Tablet(s) PO QHS No Start Date 04/24/2016 Inactive Coreg 6.25 mg tablet RxNorm: 443381 1 Tablet(s) PO BID No Start Date 09/29/2018 Inactive acyclovir 400 mg tablet RxNorm: 163730 2 Tablet(s) PO 5x daily No Start Date 02/28/2017 Inactive Lyrica 50 mg capsule RxNorm: 996687 Capsule(s) PO BID No Start Date 06/09/2018 Inactive Vraylar 3 mg capsule RxNorm: 1173605 1 Capsule(s) PO daily No Start Date 03/12/2018 Inactive valsartan 80 mg tablet RxNorm: 514961 1 Tablet(s) PO daily No Start Date 10/22/2018 Inactive Medication Administered Medication Codes Instructions Start Date Status ketorolac 60 mg/2 mL intramuscular solution RxNorm: 4633300 Milliliter 10/21/2018 No longer Active Kenalog 40 mg/mL suspension for injection RxNorm: 1987027 1.5Milliliter 09/30/2018 No longer Active Kenalog 40 mg/mL suspension for injection RxNorm: 0390594 Milliliter 09/11/2018 No longer Active Kenalog 40 mg/mL suspension for injection RxNorm: 0035477 Milliliter 06/28/2018 No longer Active ketorolac 30 mg/mL injection solution RxNorm: 659251 2Milliliter 05/02/2018 No longer Active ceftriaxone 500 mg solution for injection RxNorm: 1886144 1Milliliter 02/16/2017 No longer Active Kenalog 40 mg/mL suspension for injection RxNorm: 9130688 1Milliliter 02/16/2017 No longer Active ceftriaxone 1 gram solution for injection RxNorm: 6636948 10/06/2016 No longer Active Kenalog 40 mg/mL suspension for injection RxNorm: 3576211 Milliliter 01/20/2016 No longer Active Immunizations Vaccine Codes Date Status Influenza CVX: 141 07/22/2018 completed Influenza CVX: 141 08/16/2017 completed Assessments Condition Codes Effective Dates Other fatigue ICD-10: R53.83 ICD-9: 780.79 02/17/2019 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-10: I95.2 ICD-9: 458.8 02/17/2019 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: I25.10 [...] Item Item Code Result Date Culture Sputum 077790 LOWER RESPIRATORY TRACT CULTURE SEE NOTES 11/14/2018 Culture Sputum 804804 LOWER RESPIRATORY TRACT CULTURE SEE NOTES 10/16/2018 LIPID GRP [id number] CHOLESTEROL TNP:Duplicate Order 09/10/2018 LIPID GRP 4659569 Triglyceride TNP:Duplicate Order 2017 LIPID GRP HDL CHOLESTEROL TNP:Duplicate Order 2017 LIPID GRP 9701541 Chol/HDL Ratio TNP:Duplicate Order 2017 LIPID GRP 4794894 LDL Cholesterol TNP:Duplicate Order 2017 A1C HPLC 7445429 Hgb A1c 74182-8 TNP:Duplicate Order 2017 C Diff An [id number] GDH TNP:Lab Request 06/22/2018 C Diff An [id number] Toxin A/B TNP:Lab Request 06/22/2018 C Diff An [id number] C Diff Analyzer TNP:Lab Request 2017 C Diff An [id number] IC OK? TNP:Lab Request 06/22/2018 CBC 2188888 WBC 6.4 10e9/L 05/02/2018 CBC 4180861 RBC 5.60 10e12/L 05/02/2018 CBC 1002502 HEMOGLOBIN 17.0 g/dL 05/02/2018 CBC 4608010 HEMATOCRIT 48.0 % 05/02/2018 CBC 7987144 MCV 85.7 fL 05/02/2018 CBC 0889240 MCH 30.4 pg 05/02/2018 CBC 4307665 MCHC 35.4 g/dL 05/02/2018 CBC 8745709 PLATELET COUNT 166 10e9/L 05/02/2018 CBC 0466160 Mean Plt Volume 11.6 fL 05/02/2018 CBC 2152420 Neut Auto 48.6 % 05/02/2018 CBC 7596072 Lymph Auto 41.7 % 05/02/2018 CBC 7581541 [place] Auto 8.1 % 05/02/2018 CBC 4635829 RDW 13.1 % 05/02/2018 CBC 3946908 Eos Auto 1.1 % 05/02/2018 CBC 2200080 Baso Auto 0.5 % 05/02/2018 CBC 0717649 Neutrophil Abs 3.11 10e9/L 05/02/2018 CBC 5659431 Lymphocyte Abs 2.67 10e9/L 05/02/2018 CBC 1480640 Monocyte Abs 0.52 10e9/L 05/02/2018 CBC 0701135 Eosinophil Abs 0.07 10e9/L 05/02/2018 CBC 2610120 RDW-SD 40.0 fL 05/02/2018 CBC 0185513 Basophil Abs 0.03 10e9/L 05/02/2018 CHEM 14 0565726 AST 17 U/L 05/02/2018 CHEM 14 3229831 ALT 17 U/L 05/02/2018 CHEM 14 1827224 BUN 17 mg/dL 05/02/2018 CHEM 14 1910436 ALBUMIN 4.0 g/dL 05/02/2018 CHEM 14 5011379 CHLORIDE 97 mmol/L 05/02/2018 CHEM 14 7147130 Bili Total 0.9 mg/dL 05/02/2018 CHEM 14 2619373 ALK PHOS 67 U/L 05/02/2018 CHEM 14 2067478 SODIUM 135 mmol/L 05/02/2018 CHEM 14 4064277 CREATININE 1.18 mg/dL 05/02/2018 CHEM 14 8142963 CALCIUM 9.4 mg/dL 05/02/2018 CHEM 14 9672124 POTASSIUM 4.4 mmol/L 05/02/2018 CHEM 14 6524075 TOTAL PROTEIN 6.9 g/dL 05/02/2018 CHEM 14 1938167 GLUCOSE 316 mg/dL 05/02/2018 CHEM 14 5393279 Bicarbonate 29 mmol/L 05/02/2018 CHEM 14 8131569 AGAP 9 mmol/L 05/02/2018 MEAN GLUC 5612487 Calc Mean Gluc 283 mg/dL 05/02/2018 A1C HPLC 6221089 Hgb A1c 69522-1 11.5 % 05/02/2018 GFR CALC 3998002 GFR Non Afr Amr >60 mL/min 05/02/2018 GFR CALC 2247580 GFR Afr Amr >60 mL/min 05/02/2018 [facility] 27805[facility] Complete 02/28/2018 GFR CALC 2705428 GFR Non Afr Amr >60 mL/min 02/28/2018 GFR CALC 2622558 GFR Afr Amr >60 mL/min 02/28/2018 UA W/CII 0422676 UA Urine Appear Normal 02/28/2018 UA W/CII 2363035 UA Protein 1+ 02/28/2018 UA W/CII 9990940 UA Hemoglobin Negative 02/28/2018 UA W/CII 8473037 UA Glucose 4+ 02/28/2018 UA W/CII 4417873 UA Ketones Trace 02/28/2018 UA W/CII 2498707 UA pH 5.5 02/28/2018 UA W/CII 5539525 U Spec [place] 1.015 02/28/2018 UA W/CII 2193468 UA Bilirubin Negative 02/28/2018 UA W/CII 3148989 UA Nitrite NEG 02/28/2018 UA W/CII 9637100 UA Leuk Esteras Negative 02/28/2018 MICR 9889855 UA WBC/hpf 1 02/28/2018 MICR 9136117 UA RBC hpf 2 02/28/2018 MICR 9052704 UA WBC auto 3.8 /uL 02/28/2018 MICR 9883514 UA RBC auto 12.2 /uL 02/28/2018 MICR 9754886 UA SQ EPI auto 2.3 /uL 02/28/2018 MICR 8701813 UA H Cast auto 0.10 /uL 02/28/2018 CBC 5043062 WBC 6.4 10e9/L 02/28/2018 CBC 0677363 RBC 5.51 10e12/L 02/28/2018 CBC 5997248 HEMOGLOBIN 16.7 g/dL 02/28/2018 CBC 0678948 HEMATOCRIT 46.9 % 02/28/2018 CBC 9616763 MCV 85.1 fL 02/28/2018 CBC 1797845 MCH 30.3 pg 02/28/2018 CBC 0069145 MCHC 35.6 g/dL 02/28/2018 CBC 7046301 PLATELET COUNT 173 10e9/L 02/28/2018 CBC 9413214 Mean Plt Volume 11.6 fL 02/28/2018 CBC 3062613 Neut Auto 51.8 % 02/28/2018 CBC 2269128 Lymph Auto 39.9 % 02/28/2018 CBC 4072467 [place] Auto 7.3 % 02/28/2018 CBC 7143321 RDW 13.3 % 02/28/2018 CBC 5329990 Eos Auto 0.8 % 02/28/2018 CBC 8526488 Baso Auto 0.2 % 02/28/2018 CBC 4674178 Neutrophil Abs 3.32 10e9/L 02/28/2018 CBC 5687264 Lymphocyte Abs 2.55 10e9/L 02/28/2018 CBC 7463838 Monocyte Abs 0.47 10e9/L 02/28/2018 CBC 3930721 Eosinophil Abs 0.05 10e9/L 02/28/2018 CBC 9066264 RDW-SD 40.8 fL 02/28/2018 CBC 2481219 Basophil Abs 0.01 10e9/L 02/28/2018 CHEM 14 7241533 AST 17 U/L 02/28/2018 CHEM 14 9782041 ALT 17 U/L 02/28/2018 CHEM 14 9999975 BUN 20 mg/dL 02/28/2018 CHEM 14 3643552 ALBUMIN 4.1 g/dL 02/28/2018 CHEM 14 6496681 CHLORIDE 97 mmol/L 02/28/2018 CHEM 14 5818327 Bili Total 1.3 mg/dL 02/28/2018 CHEM 14 3546573 ALK PHOS 78 U/L 02/28/2018 CHEM 14 0987349 SODIUM 135 mmol/L 02/28/2018 CHEM 14 3813285 CREATININE 1.09 mg/dL 02/28/2018 CHEM 14 9607312 CALCIUM 9.6 mg/dL 02/28/2018 CHEM 14 3853353 POTASSIUM 3.8 mmol/L 02/28/2018 CHEM 14 1911014 TOTAL PROTEIN 7.3 g/dL 02/28/2018 CHEM 14 6060790 GLUCOSE 349 mg/dL 02/28/2018 CHEM 14 8302499 Bicarbonate 29 mmol/L 02/28/2018 CHEM 14 6988596 AGAP 9 mmol/L 02/28/2018 [place] Spotted Fever Igg/Igm 544446 FEI MT SPOTTED FEVER IGM EIA . 09/05/2017 [place] Spotted Fever Igg/Igm 802628 RMSF, IGM 0.17 index 09/05/2017 [place] Spotted Fever Igg/Igm 998573 FEI MT SPOTTED FEVER IGG EIA FLEX . 09/05/2017 [place] Spotted Fever Igg/Igm 542609 RMSF, IGG SCREEN-FLEX Positive 09/05/2017 Fei Mtn Spot'D Fev Igg 991039 RMSF, IGG -TITER IFA <1:64 11/2016 Ehrlichia Chaffeensis Antibody Igm 265843 EHRLICHIA CHAFFEENSIS IGM < 1:16 09/03/2017 Ehrlichia Chaffeensis Antibody Igg 757705 EHRLICHIA CHAFFEENSIS IGG <1:64 09/03/2017 Lymes Disease Total Antibodies With Western Blot Reflex B. BURGDORFERI, IGG/IGM 0.223 08/30/2017 [place]ym[place] Disease Total Antibodies With Western Blot Reflex C-Reactive Protein Qnt Crqnt CRP 0.00 mg/dl 08/27/2017 Sed Rate Ord21 ESR 8 mm/hr 08/27/2017 Comp Metabolic Rvq593 NA 135 mEq/L 08/16/2017 Comp Metabolic Lws214 K 4.1 mEq/L 08/16/2017 Comp Metabolic Xao116 CL 98 mEq/L 08/16/2017 Comp Metabolic Ynt116 CO2 28.0 mEq/L 08/16/2017 Comp Metabolic Adu996 ANION GAP 13 08/16/2017 Comp Metabolic Uwi168 GLUCOSE 299 mg/dL 08/16/2017 Comp Metabolic Kyo621 Creat 0.9 mg/dL 08/16/2017 Comp Metabolic Ptr445 eGFR 90 ml/min/1.73m2 08/16/2017 Comp Metabolic Fac386 BUN 20 mg/dL 08/16/2017 Comp Metabolic Aas087 B/C Ratio 21.5 Ratio 08/16/2017 Comp Metabolic Pkr056 CALCIUM 9.2 mg/dL 08/16/2017 Comp Metabolic Asx416 ALK PHOS 84 U/L 08/16/2017 Comp Metabolic Zpc523 AST(SGOT) 19 U/L 08/16/2017 Comp Metabolic Dvs786 ALT(SGPT) 24 U/L 08/16/2017 Comp Metabolic Chb468 BILI T 1.1 mg/dL 08/16/2017 Comp Metabolic Prv476 ALBUMIN 4.2 g/dL 08/16/2017 Comp Metabolic Dmk554 TPRO 7.2 g/dL 08/16/2017 Comp Metabolic Gqa784 GLOB 3.0 g/dL 08/16/2017 Comp Metabolic Bbd424 A/G Ratio 1.4 Ratio 08/16/2017 Comp Metabolic Kdl496 Osmo 284 mOsmo 08/16/2017 %Hba1C [place]143 % HbA1c 44275-5 12.5 % 08/16/2017 %Hba1C Vod536 Gluc Ave 312 mg/dL 08/16/2017 Urine Culture Ucult Preliminary NO Growth Day 1 06/23/2017 Urine Culture Ucult Complete NO Growth Day 2 06/23/2017 C RAP A SC [id number] Strep A Negative 06/08/2017 %Hba1C Qea601 % HbA1c 59462-3 9.5 % 05/04/2017 %Hba1C Mop775 Gluc Ave 226 mg/dL 05/04/2017 Tsh Ord6 [...] 31.7 pg 05/04/2017 Cbc With Differential Ord2 [place]% 8.5 % 05/04/2017 Cbc With Differential Ord2 [...] 2.48 K/ul 05/04/2017 Cbc With Differential Ord2 [place] ABS# 0.5 K/ul 05/04/2017 Cbc With Differential Ord2 Eos ABS# 0.1 K/ul 05/04/2017 Cbc With Differential Ord2 Baso ABS# 0.0 K/ul 05/04/2017 Comp Metabolic Ngc575 NA 135 mEq/L 05/04/2017 Comp Metabolic Hkc942 K 4.2 mEq/L 05/04/2017 Comp Metabolic Ygi095 CL 99 mEq/L 05/04/2017 Comp Metabolic Rdv915 CO2 26.0 mEq/L 05/04/2017 Comp Metabolic Gcm317 ANION GAP 14 05/04/2017 Comp Metabolic Ykt058 GLUCOSE 277 mg/dL 05/04/2017 Comp Metabolic Cyv112 Creat 0.9 mg/dL 05/04/2017 Comp Metabolic Cgn924 eGFR 96 ml/min/1.73m2 05/04/2017 Comp Metabolic Ryc226 BUN 23 mg/dL 05/04/2017 Comp Metabolic Hts829 B/C Ratio 26.1 Ratio 05/04/2017 Comp Metabolic Gub636 CALCIUM 8.9 mg/dL 05/04/2017 Comp Metabolic Idv729 ALK PHOS 81 U/L 05/04/2017 Comp Metabolic Ceh081 AST(SGOT) 21 U/L 05/04/2017 Comp Metabolic Umf730 ALT(SGPT) 27 U/L 05/04/2017 Comp Metabolic Dav281 BILI T 1.2 mg/dL 05/04/2017 Comp Metabolic Nji751 ALBUMIN 4.0 g/dL 05/04/2017 Comp Metabolic Qpo085 TPRO 6.7 g/dL 05/04/2017 Comp Metabolic Uzz835 GLOB 2.7 g/dL 05/04/2017 Comp Metabolic Fpx641 A/G Ratio 1.5 Ratio 05/04/2017 Comp Metabolic Ykk240 Osmo 284 mOsmo 05/04/2017 C A/B FLU [id number] Influenza A Scr Negative 02/16/2017 C A/B FLU [id number] Influenza B Scr Positive 02/16/2017 Cbc With [...] 30.3 pg 05/23/2016 Cbc With Differential Ord2 [place]% 8.8 % 05/23/2016 Cbc With Differential Ord2 [...] 2.07 K/ul 05/23/2016 Cbc With Differential Ord2 [place] ABS# 0.5 K/ul 05/23/2016 Cbc With Differential Ord2 Eos ABS# 0.1 K/ul 05/23/2016 Cbc With Differential Ord2 Baso ABS# 0.0 K/ul 05/23/2016 Lipid Ord30 CHOL 397 mg/dL 05/17/2016 Lipid Ord30 HDL 48.0 mg/dl 05/17/2016 Lipid Ord30 TRIG 578 mg/dL 05/17/2016 Lipid Ord30 LDL Unable to calculate Due to elevated triglycerides mg/dL 05/17/2016 Lipid Ord30 C/HDL 8.3 Ratio 05/17/2016 %Hba1C Wmr391 % HbA1c 18926-0 12.4 % 05/16/2016 %Hba1C Wkj310 Gluc Ave 309 mg/dL 05/16/2016 Cbc With [...] 30.4 pg 05/15/2016 Cbc With Differential Ord2 [place]% 7.8 % 05/15/2016 Cbc With Differential Ord2 [...] 2.04 K/ul 05/15/2016 Cbc With Differential Ord2 [place] ABS# 0.5 K/ul 05/15/2016 Cbc With Differential Ord2 Eos ABS# 0.1 K/ul 05/15/2016 Cbc With Differential Ord2 Baso ABS# 0.0 K/ul 05/15/2016 Tsh Ord6 hTSH II 1.70 uIU/mL 05/15/2016 Comp Metabolic Dmy962 NA 135 mEq/L 05/15/2016 Comp Metabolic Gan706 K 3.9 mEq/L 05/15/2016 Comp Metabolic Eng219 CL 96 mEq/L 05/15/2016 Comp Metabolic Brf810 CO2 27.0 mEq/L 05/15/2016 Comp Metabolic Zkn857 ANION GAP 16 05/15/2016 Comp Metabolic Urw698 GLUCOSE 183 mg/dL 05/15/2016 Comp Metabolic Ojg533 Creat 1.1 mg/dL 05/15/2016 Comp Metabolic Mbh538 eGFR 71 ml/min/1.73m2 05/15/2016 Comp Metabolic Wgw330 BUN 17 mg/dL 05/15/2016 Comp Metabolic Kqj306 B/C Ratio 14.9 Ratio 05/15/2016 Comp Metabolic Ald186 CALCIUM 9.6 mg/dL 05/15/2016 Comp Metabolic Kcu875 ALK PHOS 100 U/L 05/15/2016 Comp Metabolic Osk926 AST(SGOT) 20 U/L 05/15/2016 Comp Metabolic Zje229 ALT(SGPT) 20 U/L 05/15/2016 Comp Metabolic Lci858 BILI T 1.3 mg/dL 05/15/2016 Comp Metabolic Dqy121 ALBUMIN 4.6 g/dL 05/15/2016 Comp Metabolic Yrp113 TPRO 8.1 g/dL 05/15/2016 Comp Metabolic Xda814 GLOB 3.5 g/dL 05/15/2016 Comp Metabolic Lob656 A/G Ratio 1.3 Ratio 05/15/2016 Comp Metabolic Kwf645 Osmo 276 mOsmo 05/15/2016 Review of Systems [...] normal 02/17/2019 None Full Exam - General 1995 Ears/Nose/Throat lips/teeth/gingiva Overall: benign lips 02/17/2019 None [...] bilaterally 01/13/2019 None Full Exam - General 1995 Respiratory respiratory effort/rhythm Overall: no retractions 01/13/2019 [...] of skin Location: face 05/04/2017 patch left nondenominational Full Exam - General 1994 Constitutional general [...] Codes Date URINALYSIS NONAUTO W/O SCOPE CPT-4: 82066 02/17/2019 KETOROLAC TROMETHAMINE INJ CPT-4: J1885 10/21/2018 TRIAMCINOLONE ACET INJ NOS CPT-4: J3301 09/30/2018 THER/PROPH/DIAG INJ SC/IM CPT-4: 07350 09/11/2018 TRIAMCINOLONE ACET INJ NOS CPT-4: J3301 09/11/2018 IMMUNIZATION ADMIN CPT -4: 26256 07/22/2018 FLU VAC NO PRSV 4 MENA 3 YRS+ CPT-4: 17129 07/22/2018 TRIAMCINOLONE ACET INJ NOS CPT-4: J3301 06/28/2018 KETOROLAC TROMETHAMINE INJ CPT-4: J1885 05/02/2018 FLU VAC NO PRSV 4 MENA 3 YRS+ CPT-4: 09253 08/16/2017 IMMUNIZATION ADMIN CPT -4: 41485 08/16/2017 URINALYSIS NONAUTO W/O SCOPE CPT-4: 89044 06/21/2017 TRIAMCINOLONE ACET INJ NOS CPT-4: J3301 05/04/2017 THER/PROPH/DIAG INJ SC/IM CPT-4: 68477 05/04/2017 TRIAMCINOLONE ACET INJ NOS CPT-4: J3301 02/16/2017 ROCEPHIN, PER 250 MG CPT-4: J0696 02/16/2017 ROCEPHIN, PER 250 MG CPT-4: J0696 10/06/2016 URINALYSIS NONAUTO W/O SCOPE CPT-4: 05464 07/18/2016 TRIAMCINOLONE ACET INJ NOS CPT-4: J3301 01/20/2016 Vital Signs Date Vital 02/17/2019 Blood Pressure 1: 120/80 Code : 8480-6 Blood Pressure 2: 102/80 Code: 8480-6 Heart Rate 1: 89 bpm SpO2: 96% 01/13/2019 Blood Pressure 1: 120/70 Code : 8480-6 BMI: 34.2 Code : 36205-4 Heart Rate 1 : 74 bpm Height: 6'2" SpO2: 96% Weight: 266 lbs 12/31/2018 Blood Pressure 1: 122/70 Code : 8480-6 BMI: 34.4 Code : 56449-7 Heart Rate 1 : 90 bpm Height: 6'2" SpO2: 97% Temperature: 36.6 (C) / 97.8 (F) Weight: 268 lbs 12/26/2018 Blood Pressure 1: 118/72 Code : 8480-6 BMI: 34.4 Code : 72605-7 Heart Rate 1 : 82 bpm Height: 6'2" SpO2: 98% Temperature: 36.6 (C) / 97.9 (F) Weight: 268 lbs 11/18/2018 Blood Pressure 1: 120/84 Code : 8480-6 BMI: 33.9 Code : 97161-8 Heart Rate 1 : 77 bpm Height: 6'2" SpO2: 99% Temperature: 36.7 (C) / 98.1 (F) Weight: 264 lbs 11/12/2018 Blood Pressure 1: 138/76 Code : 8480-6 BMI: 33.9 Code : 72060-9 Heart Rate 1 : 91 bpm Height: 6'2" SpO2: 99% Weight: 264 lbs 10/30/2018 Blood Pressure 1: 130/72 Code : 8480-6 BMI: 33.3 Code : 88180-6 Heart Rate 1 : 83 bpm Height: 6'2" SpO2: 95% Temperature: 36.5 (C) / 97.7 (F) Weight: 259 lbs 10/24/2018 Blood Pressure 1: 130/70 Code : 8480-6 Heart Rate 1: 95 bpm Height: 6'2" SpO2: 96% 10/23/2018 Blood Pressure 1: 100/70 Code : 8480-6 Blood Pressure 2: 102/70 Code: 8480-6 BMI: 33.3 Code: 36978-1 Heart Rate 1: 106 bpm Height: 6'2" SpO2: 98% Weight: 259 lbs 10/21/2018 Blood Pressure 1: 140/90 Code : 8480-6 BMI: 32.9 Code : 48995-4 Heart Rate 1 : 96 bpm Height: 6'2" SpO2: 92% Weight: 256 lbs 10/17/2018 Blood Pressure 1: 110/68 Code : 8480-6 BMI: 32.9 Code : 91396-0 Heart Rate 1 : 82 bpm Height: 6'2" SpO2: 97% Weight: 256 lbs 10/14/2018 Blood Pressure 1: 124/70 Code : 8480-6 BMI: 33.6 Code : 83371-1 Heart Rate 1 : 76 bpm Height: 6'2" SpO2: 99% Temperature: 36.3 (C) / 97.3 (F) Weight: 262 lbs 09/30/2018 Blood Pressure 1: 138/82 Code : 8480-6 BMI: 33.6 Code : 04057-9 Heart Rate 1 : 82 bpm Height: 6'2" SpO2: 98% Temperature: 36.3 (C) / 97.3 (F) Weight: 262 lbs 09/09/2018 Blood Pressure 1: 140/80 Code : 8480-6 BMI: 33.0 Code : 19607-9 Heart Rate 1 : 97 bpm Height: 6'2" SpO2: 93% Temperature: 36.8 (C) / 98.2 (F) Weight: 257 lbs 07/22/2018 Blood Pressure 1: 120/78 Code : 8480-6 BMI: 31.6 Code : 17717-1 Heart Rate 1 : 87 bpm Height: 6'2" SpO2: 98% Weight: 246 lbs 07/16/2018 Blood Pressure 1: 132/74 Code : 8480-6 BMI: 31.2 Code : 85052-6 Heart Rate 1 : 90 bpm Height: 6'2" SpO2: 96% Weight: 243 lbs 07/01/2018 Blood Pressure 1: 142/82 Code : 8480-6 BMI: 31.8 Code : 10966-4 Heart Rate 1 : 88 bpm Height: 6'2" SpO2: 98% Weight: 248 lbs 06/28/2018 Blood Pressure 1: 132/76 Code : 8480-6 BMI: 31.8 Code : 52854-1 Heart Rate 1 : 107 bpm Height: 6'2" SpO2: 98% Temperature: 37.9 (C) / 100.3 (F) Weight: 248 lbs 06/18/2018 Blood Pressure 1: 138/82 Code : 8480-6 BMI: 31.8 Code : 20844-5 Heart Rate 1 : 82 bpm Height: 6'2" SpO2: 97% Weight: 248 lbs 06/04/2018 Blood Pressure 1: 128/84 Code : 8480-6 BMI: 33.9 Code : 49807-9 Heart Rate 1 : 86 bpm Height: 6'2" SpO2: 95% Weight: 264 lbs 05/13/2018 Blood Pressure 1: 130/80 Code : 8480-6 BMI: 31.1 Code : 08519-5 Heart Rate 1 : 100 bpm Height: 6'2" SpO2: 94% Weight: 242 lbs 05/02/2018 Blood Pressure 1: 134/84 Code : 8480-6 BMI: 31.2 Code : 12604-4 Heart Rate 1 : 93 bpm Height: 6'2" SpO2: 98% Weight: 243 lbs 04/29/2018 Blood Pressure 1: 142/88 Code : 8480-6 BMI: 31.6 Code : 10150-6 Heart Rate 1 : 96 bpm Height: 6'2" SpO2: 96% Temperature: 36.7 (C) / 98.1 (F) Weight: 246 lbs 03/13/2018 Blood Pressure 1: 120/76 Code : 8480-6 BMI: 30.9 Code : 93871-4 Heart Rate 1 : 112 bpm Height: 6'2" SpO2: 97% Weight: 241 lbs 03/07/2018 Blood Pressure 1: 108/78 Code : 8480-6 BMI: 30.0 Code : 41977-4 Heart Rate 1 : 87 bpm Height: 6'2" SpO2: 98% Weight: 234 lbs 02/28/2018 Blood Pressure 1: 106/74 Code : 8480-6 BMI: 30.0 Code : 78481-3 Heart Rate 1 : 101 bpm Height: 6'2" SpO2: 98% Temperature: 36.4 (C) / 97.5 (F) Weight: 234 lbs 02/13/2018 Blood Pressure 1: 110/78 Code : 8480-6 BMI: 30.0 Code : 22822-7 Heart Rate 1 : 106 bpm Height: 6'2" SpO2: 98% Weight: 234 lbs 01/29/2018 Blood Pressure 1: 106/68 Code : 8480-6 BMI: 30.0 Code : 61285-2 Heart Rate 1 : 108 bpm Height: 6'2" SpO2: 98% Weight: 234 lbs 08/27/2017 Blood Pressure 1: 134/76 Code : 8480-6 Heart Rate 1: 98 bpm Height: SpO2: 97% Weight: 08/16/2017 Blood Pressure 1: 128/80 Code : 8480-6 BMI: 32.0 Code : 03157-7 Heart Rate 1 : 94 bpm Height: [...] Code : 8480-6 BMI: 31.8 Code : 01745-0 Heart Rate 1 : 102 bpm Height: [...] Code : 8480-6 BMI: 31.8 Code : 13641-0 Heart Rate 1 : 85 bpm Height: 6'2" SpO2: 96% Temperature: 36.6 (C) / 97.9 (F) Weight: 248 lbs 02/12/2017 Blood Pressure 1: 126/76 Code : 8480-6 BMI: 31.8 Code : 45044-2 Heart Rate 1 : 106 bpm Height: 6'2" SpO2: 91% Weight: 248 lbs 02/05/2017 Blood Pressure 1: 146/86 Code : 8480-6 BMI: 31.9 Code : 07258-7 Heart Rate 1 : 98 bpm Height: 6'2" SpO2: 87% Temperature: 36.7 (C) / 98.0 (F) Weight: 248 lbs 8 oz 01/29/2017 Blood Pressure 1: 132/84 Code : 8480-6 BMI: 31.8 Code : 63974-6 Heart Rate 1 : 83 bpm Height: 6'2" SpO2: 97% Weight: 248 lbs 10/13/2016 Blood Pressure 1: 128/72 Code : 8480-6 Heart Rate 1: 86 bpm SpO2: 94% 10/09/2016 Blood Pressure 1: 128/68 Code : 8480-6 Heart Rate 1: 136 bpm SpO2: 94% Temperature: 36.8 (C) / 98.2 (F) 10/06/2016 Blood Pressure 1: 140/80 Code : 8480-6 BMI: 32.1 Code : 38848-4 Heart Rate 1 : 94 bpm Height: 6'2" SpO2: 95% Weight: 250 lbs 07/18/2016 Blood Pressure 1: 128/86 Code : 8480-6 BMI: 32.1 Code : 61100-3 Heart Rate 1 : 89 bpm Height: 6'2" SpO2: 96% Weight: 250 lbs 06/22/2016 Blood Pressure 1: 118/70 Code : 8480-6 BMI: 32.1 Code : 19532-0 Heart Rate 1 : 70 bpm Height: 6'2" SpO2: 97% Weight: 250 lbs 05/23/2016 Blood Pressure 1: 128/80 Code : 8480-6 BMI: 32.1 Code : 66049-0 Heart Rate 1 : 76 bpm Height: 6'2" SpO2: 98% Weight: 250 lbs 05/15/2016 Blood Pressure 1: 110/90 Code : 8480-6 BMI: 31.3 Code : 74342-4 Heart Rate 1 : 111 bpm Height: 6'2" SpO2: 97% Temperature: 36.6 (C) / 97.8 (F) Weight: 244 lbs 01/20/2016 Blood Pressure 1: 128/76 Code : 8480-6 BMI: 33.0 Code : 50301-4 Heart Rate 1 : 103 bpm Height: [...] data Encounters Encounter Performer Location Codes Date ([id number]) 61213 EST. PATIENT, LEVEL III Diagnosis: Hypotension due to drugs[ICD10: I95.2] Diagnosis: Other fatigue[ICD10: R53.83] Marcela Ha MD, [facility] CPT-4: 52826 02/17/2019 ([id number]) 41989 EST. 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 PATIENT, LEVEL IV Diagnosis: Type 2 diabetes mellitus with hyperglycemia[ICD10: E11.65] Diagnosis: Epigastric pain[ICD10: R10.13] Diagnosis: Pain in joints of right hand[ICD10: M25.541] Diagnosis: Shortness of breath[ICD10: R06.02] Marcela Ha MD, [facility] CPT-4: 21424 12/31/2018 [id number] EST. PATIENT, LEVEL III Diagnosis: Other chest pain[ICD10: R07.89] Diagnosis: Cough[ICD10: R05] Madeline Ha MD, [facility] CPT-4: 40402 12/26/2018 ([id number]) 41763 EST. PATIENT, LEVEL III Diagnosis: Cough[ICD10: R05] Melida Ha MD, [facility] CPT-4: 71330 11/18/2018 ([id number]) 78284 EST. PATIENT, LEVEL III Diagnosis: Cough[ICD10: R05] Diagnosis: Pneumonia due to other Gram-negative bacteria[ICD10: J15.6] Marcela Ha MD, [facility] CPT-4: 80723 11/12/2018 ([id number]) 03413 EST. PATIENT, LEVEL III Diagnosis: Pneumonia due to other Gram-negative bacteria[ICD10: J15.6] Diagnosis: Cough[ICD10: R05] Melida Ha MD, [facility] CPT-4: 05544 10/30/2018 ([id number]) 50829 EST. PATIENT, LEVEL II Diagnosis: Pain in joints of right hand[ICD10: M25.541] Diagnosis: Trigger finger, right middle finger[ICD10: M65.331] Marcela Ha MD, [facility] CPT-4: 54187 10/24/2018 ([id number]) 97593 EST. PATIENT, LEVEL IV Diagnosis: Essential (primary) hypertension[ICD10: I10] Diagnosis: Type 2 diabetes mellitus with foot ulcer[ICD10: E11.621] Melida Ha MD, [facility] CPT-4: 77124 10/23/2018 ([id number]) 60189 EST. PATIENT, LEVEL III Diagnosis: Cellulitis of right finger[ICD10: L03.011] Diagnosis: Type 2 diabetes mellitus with foot ulcer[ICD10: E11.621] Diagnosis: Pain in right hand[ICD10: M79.641] Melida Ha MD, [facility] CPT-4: 64080 10/21/2018 77859 EST. PATIENT, LEVEL III Diagnosis: Spontaneous ecchymoses[ICD10: R23.3] Diagnosis: Cellulitis of right lower limb[ICD10: L03.115] Diagnosis: Cellulitis of left lower limb[ICD10: L03.116] Madeline Ha MD, [facility] CPT-4: 82126 10/17/2018 ([id number]) 70269 EST. PATIENT, LEVEL III Diagnosis: Cough[ICD10: R05] Diagnosis: Acute bronchitis, unspecified[ICD10: J20.9] Melida Ha MD, [facility] CPT-4: 37443 10/14/2018 70975 EST. PATIENT, LEVEL III Diagnosis: Acute laryngopharyngitis[ICD10: J06.0] Diagnosis: Cough[ICD10: R05] Madeline Ha MD, [facility] CPT-4: 75200 09/30/2018 ([id number]) 44597 EST. PATIENT, LEVEL III Diagnosis: Acute recurrent maxillary sinusitis[ICD10: J01.01] Diagnosis: Cough[ICD10: R05] Diagnosis: Type 2 diabetes mellitus with hyperglycemia[ICD10: E11.65] Marcela Ha MD, [facility] CPT-4: 30198 09/09/2018 ([id number]) 28235 EST. PATIENT, LEVEL IV Diagnosis: Essential (primary) hypertension[ICD10: I10] Diagnosis: Mixed hyperlipidemia[ICD10: E78.2] Diagnosis: Bipolar disorder, current episode depressed, moderate[ICD10: F31.32] Diagnosis: Type 2 diabetes mellitus with other specified complication[ICD10: E11.69] Melida Ha MD, [facility] CPT-4: 52814 2017 ([id number]) 10829 EST. PATIENT, LEVEL III Diagnosis: Insomnia due to medical condition[ICD10: G47.01] Marcela Ha MD, [facility] CPT-4: 68492 07/16/2018 ([id number]) Miscellaneous no charge Diagnosis: Cough[ICD10: R05] Madeline Ha MD, [facility] CPT-4: 04976 07/01/2018 36800 EST. PATIENT, LEVEL III Diagnosis: Cough[ICD10: R05] Diagnosis: Acute laryngopharyngitis[ICD10: J06.0] Diagnosis: Other allergic rhinitis[ICD10: J30.89] Madeline Ha MD, [facility] CPT-4: 61939 06/28/2018 ([id number]) 27191 EST. PATIENT, LEVEL IV Diagnosis: Type 2 diabetes mellitus with hyperglycemia[ICD10: E11.65] Diagnosis: Essential (primary) hypertension[ICD10: I10] Melida Ha MD, [facility] CPT-4: 14718 06/18/2018 ([id number]) 15181 EST. PATIENT, LEVEL IV Diagnosis: Type 2 diabetes mellitus with hyperglycemia[ICD10: E11.65] Diagnosis: Essential (primary) hypertension[ICD10: I10] Diagnosis: Localized edema[ICD10: R60.0] Melida Ha MD, [facility] CPT- 4: 00909 06/04/2018 ([id number]) 91017 EST. PATIENT, LEVEL III Diagnosis: Type 2 diabetes mellitus with hyperglycemia[ICD10: E11.65] Diagnosis: Myalgia[ICD10: M79.1] Diagnosis: Pain in right hip[ICD10: M25.551] Diagnosis: Pain in left hip[ICD10: M25.552] Marcela Ha MD, [facility] CPT-4: 92256 05/13/2018 ([id number]) 62465 EST. PATIENT, LEVEL III Diagnosis: Myalgia[ICD10: M79.1] Diagnosis: Pain in right hip[ICD10: M25.551] Diagnosis: Pain in left hip[ICD10: M25.552] Marcela Ha MD, [facility] CPT-4: 97516 05/02/2018 ([id number]) 29759 EST. PATIENT, LEVEL IV Diagnosis: Essential (primary) hypertension[ICD10: I10] Diagnosis: Type 2 diabetes mellitus with hyperglycemia[ICD10: E11.65] Diagnosis: Major depressive disorder, single episode, moderate[ICD10: F32.1] Diagnosis: Myalgia[ICD10: M79.1] Marcela Ha MD, [facility] CPT-4: 94077 04/29/2018 ([id number]) 06275 EST. PATIENT, LEVEL IV Diagnosis: Type 2 diabetes mellitus with hyperglycemia[ICD10: E11.65] Diagnosis: Essential (primary) hypertension[ICD10: I10] Diagnosis: Major depressive disorder, single episode, moderate[ICD10: F32.1] Melida Ha MD, [facility] CPT-4: 72521 03/13/2018 ([id number]) 17829 EST. PATIENT, LEVEL III Diagnosis: Type 2 diabetes mellitus with hyperglycemia[ICD10: E11.65] Diagnosis: Bipolar disorder, current episode depressed, moderate[ICD10: F31.32] Diagnosis: Orthostatic hypotension[ICD10: I95.1] Marcela Ha MD, [facility] CPT-4: 98058 03/07/2018 ([id number]) 44022 EST. PATIENT, LEVEL IV Diagnosis: Type 2 diabetes mellitus with hyperglycemia[ICD10: E11.65] Diagnosis: Major depressive disorder, single episode, moderate[ICD10: F32.1] Diagnosis: Orthostatic hypotension[ICD10: I95.1] Diagnosis: Other fatigue[ICD10: R53.83] Marcela Ha MD, [facility] CPT-4: 41755 02/28/2018 06482 EST. PATIENT, LEVEL IV Diagnosis: Other fatigue[ICD10: R53.83] Diagnosis: Other malaise[ICD10: R53.81] Diagnosis: Gastro-esophageal reflux disease without esophagitis[ICD10: K21.9] Madeline Ha MD, [facility] CPT-4: 07512 02/13/2018 ([id number]) 88192 EST. PATIENT, LEVEL IV Diagnosis: Type 2 diabetes mellitus with foot ulcer[ICD10: E11.621] Diagnosis: Essential (primary) hypertension[ICD10: I10] Diagnosis: Gastro-esophageal reflux disease without esophagitis[ICD10: K21.9] Marcela Ha MD, [facility] CPT-4: 94523 01/29/2018 [id number] EST. PATIENT, LEVEL III Diagnosis: Other malaise[ICD10: R53.81] Diagnosis: Other fatigue[ICD10: R53.83] Diagnosis: Pain in right shoulder[ICD10: M25.511] Diagnosis: Pain in left shoulder[ICD10: M25.512] Madeline Ha MD, [facility] CPT-4: 62049 08/27/2017 ([id number]) 60279 EST. PATIENT, LEVEL IV Diagnosis: Essential (primary) hypertension[ICD10: I10] Diagnosis: Type 2 diabetes mellitus with hyperglycemia[ICD10: E11.65] Diagnosis: VACCIN FOR INFLUENZA[ICD10: Z23] Melida Ha MD, [facility] CPT-4: 58957 08/16/2017 95597 EST. PATIENT, LEVEL III Diagnosis: Zoster without complications[ICD10: B02.9] Madeline Ha MD, [facility] CPT-4: 42216 07/26/2017 ([id number]) 20482 EST. PATIENT, LEVEL III Diagnosis: Cellulitis of right lower limb[ICD10: L03.115] Marcela Ha MD, [facility] CPT-4: 52595 07/03/2017 89372 EST. PATIENT, LEVEL II Diagnosis: Laceration without foreign body of left forearm, initial encounter[ ICD10: S51.812A] Marcela Ha MD, [facility] CPT-4: 66033 06/29/2017 ([id number]) 12190 EST. PATIENT, LEVEL III Diagnosis: Cellulitis of right lower limb[ICD10: L03.115] Diagnosis: Type 2 diabetes mellitus with foot ulcer[ICD10: E11.621] Marcela Ha MD [facility] CPT-4: 10894 06/18/2017 ([id number]) 11005 EST. PATIENT, LEVEL IV Diagnosis: Cellulitis of right lower limb[ICD10: L03.115] Diagnosis: Acute laryngopharyngitis[ICD10: J06.0] Diagnosis: Gastro-esophageal reflux disease without esophagitis[ICD10: K21.9] Marcela Ha MD, [facility] CPT-4: 71650 06/07/2017 ([id number]) 93838 EST. PATIENT, LEVEL III Diagnosis: Type 2 diabetes mellitus with hyperglycemia[ICD10: E11.65] Diagnosis: Insect bite (nonvenomous) of abdominal wall, initial encounter[ICD10 : S30.861A] Marcela Ha MD [facility] CPT-4: 88222 05/17/2017 ([id number]) 36591 EST. PATIENT, LEVEL III Diagnosis: Allergic contact dermatitis due to plants, except food[ICD10: L23.7] Melida Ha MD [facility] CPT-4: 79568 05/04/2017 ([id number]) 06774 EST. PATIENT, LEVEL III Diagnosis: Essential (primary) hypertension[ICD10: I10] Marcela Ha MD [facility] CPT-4: 46236 03/15/2017 ([id number]) 25200 EST. PATIENT, LEVEL III Diagnosis: Cough[ICD10: R05] Diagnosis: Essential (primary) hypertension[ICD10: I10] Marcela Ha MD [facility] CPT-4: 78135 03/01/2017 ([id number]) 92856 EST. PATIENT, LEVEL III Diagnosis: Cough[ICD10: R05] Diagnosis: Nasal congestion[ICD10: R09.81] Diagnosis: Acute recurrent maxillary sinusitis[ICD10: J01.01] Marcela Ha MD [facility] CPT-4: 31410 02/16/2017 ([id number]) 46504 EST. PATIENT, LEVEL III Diagnosis: Type 2 diabetes mellitus with hyperglycemia[ICD10: E11.65] Marcela Ha MD, [facility] CPT-4: 41327 02/12/2017 ([id number]) 95046 EST. PATIENT, LEVEL IV Diagnosis: Type 2 diabetes mellitus with hyperglycemia[ICD10: E11.65] Diagnosis: Muscle weakness (generalized)[ICD10: M62.81] Diagnosis: Disorientation, unspecified[ICD10: R41.0] Marcela Ha MD, [facility] CPT-4: 06732 02/05/2017 ([id number]) Patient admitted to the hospital from clinic (NO CHARGE) Diagnosis: Type 2 diabetes mellitus with hyperglycemia[ICD10: E11.65] Diagnosis: Disorientation, unspecified[ICD10: R41.0] Diagnosis: Muscle weakness (generalized)[ICD10: M62.81] Marcela Ha MD, [facility] CPT-4: 89000B 01/29/2017 ([id number]) Miscellaneous no charge Diagnosis: Cellulitis of right lower limb[ICD10: L03.115] Marcela Ha MD, [facility] CPT-4: 82696 10/13/2016 ([id number]) Miscellaneous no charge Diagnosis: Type 2 diabetes mellitus with foot ulcer[ICD10: E11.621] Diagnosis: Pain in right foot[ICD10: M79.671] Marcela Ha MD, [facility] CPT-4: 58263 10/09/2016 69100 EST. PATIENT, LEVEL II Diagnosis: Cellulitis of right lower limb[ICD10: L03.115] Marcela Ha MD, [facility] CPT-4: 35201 10/06/2016 ([id number]) 79129 EST. PATIENT, LEVEL IV Diagnosis: Low back pain[ICD10: M54.5] Diagnosis: Other deformities of toe(s) (acquired), left foot[ICD10: M20.5X2] Diagnosis: Type 2 diabetes mellitus with foot ulcer[ICD10: E11.621] Marcela Ha MD , [facility] CPT-4: 97078 07/18/2016 ([id number]) 34059 EST. PATIENT, LEVEL III Diagnosis: Type 2 diabetes mellitus with hyperglycemia[ICD10: E11.65] Marcela Ha MD, [facility] CPT-4: 38224 06/22/2016 ([id number]) 73058 EST. PATIENT, LEVEL IV Diagnosis: Type 2 diabetes mellitus with hyperglycemia[ICD10: E11.65] Diagnosis: Mixed hyperlipidemia[ICD10: E78.2] Diagnosis: Other hemoglobinopathies[ICD10: D58.2] [facility] CPT-4: 51180 05/23/2016 ([id number]) 71698 EST. PATIENT, LEVEL IV Diagnosis: Type 2 diabetes mellitus with other specified complication[ICD10: E11.69] Diagnosis: Dehydration[ICD10: E86.0] Marcela Ha MD, [facility] CPT-4: 13875 05/15/2016 ([id number]) OFFICE VISIT, NEW - LEVEL 3 Diagnosis: Allergic contact dermatitis due to plants, except food[ICD10: L23.7] Madeline Ha MD, [facility] CPT-4: 23415 01/20/2016 Plan of Care Planned Activity Notes Codes Status Date Visit Plan: Orthostasis -decrease coreg -monitor symptoms and follow up in 10 days- sooner if needed Fatigue-check labs 02/17/2019 Appointment: Marcela Oshea WPtel: [address] [place], [place] [phone] (30 min) Complex 02/17/2019 Patient Education: Patient Medication Summary Completed 02/17/2019 Appointment: Marcela Oshea WPtel: [address] [place], [place] [phone] (30 min) Complex 01/14/2019 Visit Plan: Hypertension [...] Summary Completed 01/13/2019 Appointment: Marcela Oshea WPtel: [address] [place], [place] [phone] [place] (30 min) Complex 01/10/2019 Visit Plan: Epigastric pain -start protonix daily- monitor symptoms Chest pain -work up negative done last week with Madeline-recommend appt with Dr Brennan Joint pain-check inflammation makers DM-check Hgb a1c 12/31/2018 Appointment: Marcela Oshea WPtel: [phone] [phone] [place] (15 min) Moderate 12/31/2018 Patient Education: Patient Medication Summary Completed 12/31/2018 Visit Plan: chest pain - EKG and cardiac enzymes OK - discussed with Dr. Ha - will treat for pneumonia - pt is to notify clinic if symptoms do not improve, if they worsen, or with any changes questions, or concerns. 12/26/2018 Appointment: Madeline Kennedy WPtel: [phone] [phone] [place] (30 min) Complex 12/26/2018 Patient Education: Patient Medication Summary Completed 12/26/2018 Referral: Andrew Cross Patient informed. Referral info faxed. Completed Visit Plan: cough - improved - continue with inhalers - continue with symbicort - rx for proair for PRN use when pt is feelign short of breath with activity. 11/18/2018 Appointment: Melida Ha WPtel: [phone] [phone] [place] (15 min) Moderate 11/18/2018 Patient Education: [...] of plan. 11/12/2018 Appointment: Marcela Oshea WPtel: [phone] (30 min) Complex 11/12/2018 Patient Education: Patient Medication Summary Completed 11/12/2018 Patient Education: Symbicort - 18-64 - eCopay Completed 11/12/2018 Care Plan: Referral Order SNOMED-CT : [id number] Pending 11/12/2018 Referral: Niko Mantilla Referral Completed 11/04/2018 Visit Plan: Pneumonia, cough - recent diagnosis of Moraxella Cattharalis - with sensitivity to levaquin - will give 2 wks of levaquin since he had improvement but no full resolution of symptoms. 10/30/2018 Appointment: Melida Ha WPtel: [phone] 30 min appointments only in this [...] for evaluation 10/24/2018 Appointment: Marcela Oshea WPtel: [phone] (30 min) Complex 10/24/2018 Patient Education: Patient Medication Summary Completed 10/24/2018 Care Plan: Referral Order SNOMED-CT : [id number] Pending 10/24/2018 Visit Plan: Hypotension - discussed [...] controlled. 10/23/2018 Appointment: [phone] (15 min) Moderate 10/23/2018 Patient Education: Patient [...] plan. 10/21/2018 Appointment: Marcel[phone] [place] (30 min) Complex 10/21/2018 Patient Education: [...] warmth, discharge. 10/17/2018 Appointment: Madeline Kennedy WPtel: [address] [place] [address] (15 min) Moderate 10/17/2018 Patient Education: Patient [...] acutely worsen. 10/14/2018 Appointment: Marcela Oshea WPtel: [facility] (15 min) Moderate 10/14/2018 Patient Education: Patient Medication Summary Completed 10/14/2018 Care Plan: CHEST X-RAY 2VW FRONTAL&LATL LOINC : 03369-0 Pending 10/14/2018 Visit Plan: URI - Pt [...] allergy spray. 09/30/2018 Appointment: Madeline Kennedy WPtel: [facility]6 [phone] (15 min) Moderate 09/30/2018 Patient Education: Patient [...] A1C 09/09/2018 Appointment: Marcela Oshea WPtel: [phone] [phone] (15 min) Moderate 09/09/2018 Patient Education: Patient Medication Summary Completed 09/09/2018 Patient Education: Patient Medication Summary Completed 09/06/2018 Patient Education: Cholesterol Management Completed 09/06/2018 Care Plan: Comp Metabolic Pending 09/06/2018 Care Plan: Cbc With Differential Pending 09/06/2018 Care Plan: %Hba1C LOINC : 08452-3 Pending 09/06/2018 Care Plan: Tsh Pending 09/06/2018 Care Plan: Lipid Pending 09/06/2018 Appointment: Marcela Oshea WPtel: [facility]5 [phone] [place] (15 min) Moderate 08/26/2018 Appointment: Marcela Oshea WPtel: [facility]5 [phone] (15 min) Moderate 08/23/2018 Visit Plan: Hypertension [...] in clinic. 07/22/2018 Appointment: Mel[facility]: [phone] (15 min) Moderate 07/22/2018 Patient Education: Patient [...] insomnia. 07/16/2018 Appointment: Marcel[facility]el[phone] (30 min) Complex 07/16/2018 Patient Education: Patient Medication Summary Completed 07/16/2018 Visit Plan: cough - improved - notify clinic if symptoms do not completely resolve, or with any questions or concerns. 07/01/2018 Appointment: Madeline Kennedy [facility]Ptel: [phone] (15 min) Moderate 07/01/2018 Patient Education: Patient [...] spray. 06/28/2018 Appointment: Madeline Kennedy WPtel: [phone] [facility] (15 min) Moderate 06/28/2018 Patient Education: Patient Medication Summary Completed 06/28/2018 Patient Education: Patient Medication Summary Completed 06/21/2018 Care Plan: Annabel RICKS OR Pending 06/21/2018 Visit Plan: Diabetes Mellitus - [...] at home. 06/18/2018 Appointment: Melida Ha WPtel: [phone] [phone] (15 min) Moderate [...] swelling improves. 06/04/2018 Appointment: Melida Ha WPtel: [facility] (15 min) Moderate 06/04/2018 Patient Education: Patient [...] allow for greater blood glucose control. Joint cgab-pseasnaw-duwsmem- symptoms have improved -stop meloxicam due to upset stomach-call if symptoms return 05/13/2018 Appointment: Marcela Oshea WPtel: [facility]5 [phone] (30 min) Complex 05/13/2018 Patient Education: Patient Medication Summary Completed 05/13/2018 Visit Plan: Bilateral hip cnrk-pbhhsplx-pcoufmn IM injection administered today for c/o continued myalgia/arthralgia. Patient to start taking Meloxicam 15mg PO daily. Advised to return to clinic if symptoms do not improve. 05/02/2018 Appointment: Marcela Oshea WPtel: [facility]1 [phone] (30 min) Complex 05/02/2018 Patient Education: Patient [...] readings at home. Diabetes Mellitus -check labs Ofzqmcek-iqeshcy-xszk bite-rx for doxycycline-follow up in 2 weeks 04/29/2018 Appointment: Marcela Oshea WPtel: [phone] [phone] (15 min) Moderate 04/29/2018 Patient Education: Patient Medication Summary Completed 04/29/2018 Appointment: Melida Ha WPtel: [phone] [facility] (15 min) Moderate 04/15/2018 Appointment: Marcela Oshea WPtel: [phone] [phone] (30 min) Complex 03/21/2018 Visit Plan: Hypertension [...] cymbalta 03/13/2018 Appointment: Melida Ha WPtel: [phone] [facility] (30 min) Complex 03/13/2018 Patient Education: Patient Medication Summary Completed 03/13/2018 Visit Plan: DM-continue same medications-monitor blood sugars routinely as directed -rx for new glucometer and test strips provided Bipolar-currently depressed-patient start on vraylar-follow up in 2 weeks, sooner if needed. Patient and verbalied understanding of plan. Hypotension- stay off losartan 03/07/2018 Appointment: Marcela Oshea WPtel: [phone] [phone] (30 min) Complex 03/07/2018 Patient Education: Patient Medication Summary Completed 03/07/2018 Appointment: Mel[facility] Ha [facility]Ptel: [phone] (15 min) Moderate 03/04/2018 Visit Plan: Hypotension-continue [...] this patient. 02/28/2018 Appointment: Marcela Oshea WPtel: [phone] [place] (30 min) Complex 02/28/2018 Patient Education: [...] not improving. 02/13/2018 Appointment: Madeline Kennedy [facility]Ptel: [phone] (15 min) Moderate 02/13/2018 Patient Education: Patient Medication Summary Completed 02/13/2018 Referral: Sun Glynn Patient informed. Referral info faxed. Completed Visit Plan: DM-weight loss-not checking blood sugars- patient sent for labs today HTN-low lcqwl-rtmenuh-nrtpt labs Callus of foot and fissue of [...] improving. 01/29/2018 Appointment: Marcela Oshea WPtel: [facility]0 [phone] [place] (30 min) Complex 01/29/2018 Patient Education: Patient Medication Summary Completed 01/29/2018 Care Plan: Comp Metabolic Cancelled 01/29/2018 Care Plan: Cbc With Differential Cancelled 01/29/2018 Care Plan: %Hba1C LOINC : 18167-6 Cancelled 01/29/2018 Care Plan: Referral Order SNOMED-CT : [id number] Cancelled 01/29/2018 Visit Plan: Fatigue, malaise, joint [...] concerns. 08/27/2017 Appointment: Madeline Kennedy WPtel: [phone] [place] (15 min) Moderate 08/27/2017 Patient Education: [...] 08/16/2017 Appointment: Melida Ha WPtel: [phone] [phone] (30 min) Complex 08/16/2017 Patient Education: Patient Medication Summary Completed 08/16/2017 Patient Education: Obesity Completed 08/16/2017 Appointment: Madelnie Kennedy WPtel: [phone] [phone] (30 min) Complex 08/07/2017 Visit Plan: Shingles [...] considered contagious. 07/26/2017 Appointment: Madeline Kennedy WPtel: [phone] [facility] [place] (15 min) Moderate 07/26/2017 Patient Education: Patient Medication Summary Completed 07/26/2017 Visit Plan: Cellulitis right foot-cultured today in the office-home health to reapply wound vac--appt with wound care on to evaluate for debridement- 07/03/2017 Appointment: Marcela Oshea WPtel: [phone] [phone] [place] (30 min) Complex 07/03/2017 Patient Education: Patient Medication Summary Completed 07/03/2017 Visit Plan: Abrasion left arm - Pt was instructed to keep the wound clean, wash with antibacterial soap, use triple antibiotic ointment, call if redness, pustular drainage, or any other acute concerns. 06/29/2017 Appointment: Marcela Oshea WPtel: [facility]0 [address] (15 min) Moderate 06/29/2017 Patient Education: [...] plan. 06/18/2017 Appointment: Marcela Oshea WPtel: [facility]8 [place] [phone] (15 min) Moderate 06/18/2017 Patient Education: Patient [...] prilosec 06/07/2017 Appointment: Marcela Oshea WPtel: [facility]6 [phone] (10 min) Simple 06/07/2017 Patient Education: Patient [...] doxycycline 05/17/2017 Appointment: Marcela Oshea WPtel: [facility]9 [phone] (30 min) Complex 05/17/2017 Patient Education: Patient [...] if you want anai edge called into [facility]. 05/04/2017 Appointment: Marcela Oshea WPtel: [address] [place], [place] [phone] (30 min) Complex 05/04/2017 Patient Education: Patient [...] Cough-resolved 03/15/2017 Appointment: Marcela Oshea WPtel: [facility]6 [phone] (15 min) Moderate 03/15/2017 Patient Education: Patient Medication Summary Completed 03/15/2017 Appointment: Marcela Osheatel: [address] [place], [place] [phone] (30 min) Complex 03/12/2017 Visit Plan: Feng [...] discussed 02/16/2017 Appointment: Marcela Oshea WPtel: [phone] [phone] (15 min) Moderate 02/16/2017 Patient Education: Patient [...] controlled. 02/12/2017 Appointment: Marcela Oshea WPtel: [facility]9 [phone] (30 min) Complex 02/12/2017 Patient Education: Patient Medication Summary Completed 02/12/2017 Appointment: Marcela Oshea WPtel: [phone] [phone] (30 min) Complex 02/06/2017 Visit Plan: Diabetes [...] consider 02/05/2017 Appointment: Marcela Oshea WPtel: [facility]5 [phone] [place] (30 min) Complex 02/05/2017 Patient Education: Patient Medication Summary Completed 02/05/2017 Appointment: Marcela Oshea WPtel: [address] [place], [place] [phone] [place] (30 min) Complex 01/30/2017 Visit Plan: Acute confusion-uncontrolled diabetes- chronically noncompliant with treatment and stopped his insulin several months ago-r/o stroke vs DKA-Dr Ha in to evaluate patient-plan to admit for further work up and treatment-patient's called and she transported him to the hospital 01/29/2017 Appointment: Marcela Oshea WPtel: [facility]5 [phone] [place] (30 min) Complex 01/29/2017 Patient Education: Patient Medication Summary Completed 01/29/2017 Patient Education: Obesity Completed 01/29/2017 Visit Plan: Right foot pain-MRI shows foreign body-appt with Dr Grewal for evaluation on Sunday. 10/13/2016 Appointment: Marcela Oshea WPtel: [facility]5 [phone] [place] (15 min) Moderate 10/13/2016 Patient Education: Patient Medication Summary Completed 10/13/2016 Appointment: Marcela Oshea WPtel: [facility]5 [phone] [place] (30 min) Complex 10/12/2016 Visit Plan: Right foot mbpp-jdubuycg-xpgxx washer dropped on foot-xray negative but pain continues to increase-recommend MRI of foot for further evaluation-refer to wound care for lesions on right foot, patient has diabetes and history of osteomyelitis-culture obtained today-continue oral abx- follow up in the office on , sooner if needed 10/09/2016 Visit Plan: Right foot cfrh-yaepxiws-kskgf washer dropped on foot-xray negative but pain continues to increase-recommend MRI of foot for further evaluation-refer to wound care for lesions on right foot, patient has diabetes and history of osteomyelitis-culture obtained today-continue oral abx- follow up in the office on , sooner if needed 10/09/2016 Visit Plan: Right foot seiw-wiirdkwu-peqcw washer dropped on foot-xray negative but pain continues to increase-recommend MRI of foot for further evaluation-refer to wound care for lesions on right foot, patient has diabetes and history of osteomyelitis-culture obtained today-continue oral abx- follow up in the office on , sooner if needed 10/09/2016 Appointment: Marcela Oshea WPtel: [facility]1 [phone] (30 min) Complex 10/09/2016 Patient Education: Patient Medication Summary Completed 10/09/2016 Visit Plan: Cellulitis - continue with oral antibiotics as previously directed, return to clinic as previously directed, call for acute change in symptoms, worsening redness, warmth, discharge. 10/06/2016 Appointment: Marcela Oshea WPtel: [address] [place], [place] [phone] (10 min) Simple 10/06/2016 Patient Education: Patient Medication Summary Completed 10/06/2016 Appointment: Marcela Oshea WPtel: [address] [place], [place] [phone] (30 min) Complex 08/24/2016 Referral: Sun Glynn Referral Completed 07/21/2016 Visit Plan: Low back pain- history of spinal fusion- patient for xray lumbar spine-RX sent to [facility] and instructed on use-topical voltaren samples provided and instructed on use. Ok to use tylenol as needed as well. The patient is to call the office if the pain is worsening or does not improve. Pressure ulcer left 4th toe-refer to Dr Glynn for evaluation 07/18/2016 Appointment: Marcela Oshea WPtel: [facility]7 [phone] (30 min) Complex 07/18/2016 Patient Education: Patient Medication Summary Completed 07/18/2016 Patient Education: Obesity Completed 07/18/2016 Care Plan: Referral Order SNOMED-CT : [id number] Cancelled 07/18/2016 Visit Plan: Diabetes Mellitus - [...] control. 06/22/2016 Appointment: Marcela Oshea WPtel: [phone] [phone] (30 min) Complex 06/22/2016 Patient Education: Patient [...] today 05/23/2016 Appointment: Marcela Oshea WPtel: [phone] [phone] (30 min) Complex 05/23/2016 Patient Education: Patient [...] plan. 05/15/2016 Appointment: Marcela Oshea WPtel: [facility]5 [phone] (15 min) Moderate 05/15/2016 Patient Education: Patient [...] in place-refer to Dr Mantilla for evaluation REPEAT CBC Toujeo 10 units daily . [...] blood glucose control. Elevated Hgb-check CBC today levaquin re-culture wound refer to wound care . Cellulitis-right foot wound-post op resection of first metatarsal head- finished one week of cipro-cultured wound again today in the office-will do levaquin daily until culture is back-dressing changes today in the office-will refer to wound care-needs dressings to help with extra moisture. Patient verbalized understanding of plan. . Poison Jana - pt is to use topical treatments as directed. Pt is cleanse clothing in hot water with soap, and call if symptoms do not improve or if they worsen. Kenalog injection today in the office-monitor blood sugars closely over the next 2-3 days-use calamine as directed-call if you want blue rosieo called into [facility]. stop the vraylar start on cymbalta 30mg [...] improved, or if symptoms acutely worsen. . Hypertension - well controlled - continue with current medications, continue with no added salt diet. Pt has been encouraged to exercise daily. The pt has been advised to call the office if there are any acute concerns about change in blood pressure readings at home. CAD-hospital follow up -patient had cardiac cath with stent placement by Dr Brennan -chest pain has resolved . Mild ecchymosis with faint erythema - pt is to continue his levaquin that was previously prescribed - The patient was instructed in appropriate wound care. The patient was instructed to use the antibiotic as per RX. The patient is to call for any change in symptoms, increase in size of the lesion, increase in pain, worsening redness, warmth, discharge. START CHECKING BLOOD SUGARS . Diabetes Mellitus [...] readings are starting to become less controlled. Eextuwhjc-glqkchdo-paauflfp to monitor Generalized weakness-refer for PT-patient refuses today but will consider steroid shot today flonase and mucinex over [...] spray in the nasal steroid allergy spray. CT Chest sputum culture symbicort 2 puffs [...] in blood pressure readings at home. Cough-resolved steroid shot today flonase and mucinex over [...] do not improve or if they worsen. PROTONIX 40MG DAILY CHECK LABS APPT WITH DR BRENNAN . Epigastric pain -start protonix daily- monitor symptoms Chest pain -work up negative done last week with Madeline-recommend appt with Dr Brennan Joint pain-check inflammation makers DM-check Hgb a1c continue oral antibiotic start using topical antibiotic ointment to scabbed areas and cover with dressing follow up , sooner if needed refer to wound care mri left foot due to increased pain -concern for fracture from injury . Right foot bgda-cwxwoqby-tmdph washer dropped on foot-xray negative but pain [...] for fracture from injury . Right foot devr-jfupgxnm-rchyi washer dropped on foot-xray negative but pain [...] for fracture from injury . Right foot vdko-cpucenjb-emglx washer dropped on foot-xray negative but pain [...] improvement but no full resolution of symptoms. will check labs and EKG if it is negative will start you on an antibiotic -. chest pain - EKG and cardiac enzymes OK - discussed with Dr. Ha - will treat for pneumonia - pt is to notify clinic if symptoms do not improve, if they worsen, or with any changes questions, or concerns. . Abrasion left arm - Pt was instructed to keep the wound clean, wash with antibacterial soap, use triple antibiotic ointment, call if redness, pustular drainage, or any other acute concerns. 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 Low back pain- history of spinal fusion-patient for xray lumbar spine-RX sent to [facility] pharmacy and instructed on use-topical voltaren samples provided and instructed on use. Ok to use tylenol as needed as well. The patient is to call the office if the pain is worsening or does not improve. Pressure ulcer left 4th toe-refer to Dr Glynn for evaluation REPEAT LABS BEFORE YOUR NEXT APPOINTMENT IN [...] readings are starting to become less controlled. CHECK UA TODAY LABS HOLD A.M. DOSE OF COREG AND MONITOR SYMPTOMS . Orthostasis -decrease coreg -monitor symptoms and follow up in 10 days- sooner if needed Fatigue-check labs . Bilateral hip wlko-ygiqnsmd-hdlsaky IM injection administered today for c/o continued myalgia/arthralgia. Patient to start taking Meloxicam 15mg PO daily. Advised to return to clinic if symptoms do not improve. . DM-weight loss-not checking blood sugars-patient sent for labs today HTN-low lkvdo-pjuuksr-egtmu labs Callus of foot and fissue of heel-refer to Dr Glynn for evaluation Esophageal Reflux - the patient has been counseled against excessive intake of caffeine, spicy foods, peppermint, and cinnamon - all of which can exacerbate esophageal reflux. The patient is to take medications as prescribed and call the office if the symptoms are not improving. . Fatigue, malaise, joint pains - pt states that he has been outside and in areas where he would be exposed to ticks. He states that all of his joints ache - will check labs, and treat as indicated. Pt is to notify clinic if symptoms do not improve, if they worsen, or with any changes, questions, or concerns. CT Chest sputum culture symbicort 2 puffs [...] allow for greater blood glucose control. Joint wcrm-aweaduhi-bmfbzfd-symptoms have improved -stop meloxicam due to upset [...] readings at home. Diabetes Mellitus -check labs Uvdrjddo-wiqwycd-urqz bite-rx for doxycycline-follow up in 2 weeks [...]
--- OUTSIDE RECORDS SUMMARY | 2019-03-10 09:57 | XMS REPORT | CCD ---
Author Author Madeline Kennedy MD, [facility] Address [address] [place] [address] Phone Care Team Providers Care Nurse Informatics Educator Name Role Phone PP Unavailable CCM Unavailable Summary Purpose Interface Exchange Insurance Providers Payer name Policy type / Coverage type Covered constitution party ID Effective Begin Date Effective End Date [place] [employer] Commercial Insurance [id number] 2018 Unknown Family history Father Diagnosis Age At Onset Hyperlipidemia Unknown Heart Attack Unknown Mother Diagnosis Age At Onset Hypertension Unknown Social History Social History Element Codes Description Effective Dates Marital status Unknown Mignon 01/20/2016 Number of children Unknown 4 01/20/2016 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/[address]: 640835951 Never smoker 01/20/[address]: 125159876 Never drinks alcohol 01/20/2016 Allergies, Adverse Reactions, Alerts Substance Reaction Codes Entered Date Inactivated Date Status * NO KNOWN DRUG ALLERGIES Unknown 05/23/2016 No Inactive Date Active Past Medical History Illness Codes Condition Status Onset Date Resolved Date 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 ICD-10: I95.2 Active 02/17/2019 Unknown Other fatigue ICD-9: 780.79 ICD-10: R53.83 Active 08/27/2017 Unknown 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 [...] R53.83 08/27/2017 Active 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 [...] Instructions Cymbalta 60 mg capsule,delayed release RxNorm: 993705 1 Capsule(s) PO QAM 02/19/2019 09/16/2019 Active will call for refill- dose change Coreg 6.25 mg tablet RxNorm: 672846 1 Tablet(s) daily 201808/17/2019 Active clonazepam 1 mg tablet RxNorm: 799384 2 Tablet(s) PO HS 201806/14/2019 Active Tresiba FlexTouch U-200 insulin 200 unit/mL (3 mL) subcutaneous pen RxNorm: 2540109 50 Unit(s) SQ daily 01/08/2019 05/07/2019 Active please give him 30 day supply Protonix 40 mg tablet,delayed release RxNorm: 340479 1 Tablet(s) PO daily 12/31/2018 01/29/2019 Inactive Tresiba FlexTouch U-200 insulin 200 unit/mL (3 mL) subcutaneous pen RxNorm: 6031438 50 Unit(s) SQ daily 12/31/2018 01/07/2019 Inactive please give him 30 day supply Augmentin 500 mg-125 mg tablet RxNorm: 629238 1 Tablet(s) PO TID 12/26/2018 01/04/2019 Inactive Augmentin 500 mg-125 mg tablet RxNorm: 057807 1 Tablet(s) PO TID 12/26/2018 12/25/2018 Inactive ProAir HFA 90 mcg/actuation aerosol inhaler RxNorm: 5679006 2 Puff(s) INH QID as needed 11/18/2018 No Stop Date Active Lyrica 50 mg capsule RxNorm: 895339 Capsule(s) PO daily 201802/08/2019 Inactive Cymbalta 30 mg capsule,delayed release RxNorm: 227301 1 Capsule(s) PO QAM 11/13/2018 02/18/2019 Inactive Lyrica 50 mg capsule RxNorm: 095708 Capsule(s) PO daily 201811/12/2018 Inactive Symbicort 160 mcg-4.5 mcg/actuation HFA aerosol inhaler RxNorm: 7468979 2 Puff(s) INH BID 11/12/2018 12/11/2018 Inactive albuterol sulfate 2.5 mg/3 mL (0.083 %) solution for nebulization RxNorm: 196353 3 Milliliter(s) INH UD 11/07/2018 No Stop Date Active azithromycin 500 mg tablet RxNorm: 153354 500mg on day 1 then 250 mg daily x 4 more day Tablet(s) PO 11/07/20182018 Inactive 500mg on day 1 and then 250mg daily 2-4 cefdinir 300 mg capsule RxNorm: 326148 1 Capsule(s) PO BID 01/201911/06/2018 Inactive azithromycin 500 mg tablet RxNorm: 310942 500mg on day 1 then 250 mg daily x 4 more day Tablet(s) PO 11/07/20182018 Inactive 500mg on day 1 and then 250mg daily 2-4 cefdinir 300 mg capsule RxNorm: 867061 1 Capsule(s) PO BID 01/201911/13/2018 Inactive Levaquin 500 mg tablet RxNorm: 851577 1 Tablet(s) PO daily TAKE ONE TABLET BY MOUTH DAILY UNTIL GONE 10/31/20182018 Inactive Levaquin 500 mg tablet RxNorm: 639688 1 Tablet(s) PO daily 11/12/2018 Inactive valsartan 80 mg tablet RxNorm: 114572 1/2 Tablet(s) PO daily 04/20/2019 Active doxycycline hyclate 100 mg tablet RxNorm: 6275057 1 Tablet(s) PO BID 10/21/2018 10/27/2018 Inactive ketorolac 60 mg/2 mL intramuscular solution RxNorm: 2649530 Milliliter(s) IM 10/21/2018 10/21/2018 Inactive Levaquin 500 mg tablet RxNorm: 824763 1 Tablet(s) PO daily 10/31/2018 Inactive Tessalon Perles 100 mg capsule RxNorm: 121462 1-2 Capsule(s) PO TID PRN 10/14/2018 No Stop Date Active albuterol sulfate 2.5 mg/3 mL (0.083 %) solution for nebulization RxNorm: 741410 3 Milliliter(s) INH UD 10/14/201812/2018 Inactive Levaquin 500 mg tablet RxNorm: 789287 1 Tablet(s) PO daily 08/201810/16/2018 Inactive albuterol sulfate 2.5 mg/3 mL (0.083 %) solution for nebulization RxNorm: 978613 3 Milliliter(s) INH UD 09/30/201807/2018 Inactive Kenalog 40 mg/mL suspension for injection RxNorm: 0776153 1.5 Milliliter(s) Inj 09/30/2018 09/30/2018 Inactive Coreg 6.25 mg tablet RxNorm: 941096 TAKE ONE TABLET BY MOUTH TWICE A DAY 09/30/2018 02/18/2019 Inactive Keflex 500 mg capsule RxNorm: 804211 1 Capsule(s) PO TID 201710/03/2018 Inactive prednisone 20 mg tablet RxNorm: 140994 2 Tablet(s) PO daily 09/29/2018 Inactive Kenalog 40 mg/mL suspension for injection RxNorm: 9304739 Milliliter(s) Inj 09/11/2018 09/11/2018 Inactive Zyrtec 10 mg tablet RxNorm: 3747599 1 Tablet(s) PO daily 09/0910/08/2018 Inactive Keflex 500 mg capsule RxNorm: 667004 1 Capsule(s) PO TID 201709/15/2018 Inactive Tresiba FlexTouch U-200 insulin 200 unit/mL (3 mL) subcutaneous pen RxNorm: 0420026 50 Unit(s) SQ daily 08/30/2018 08/29/2018 Inactive please give him 30 day supply Tresiba FlexTouch U-200 insulin 200 unit/mL (3 mL) subcutaneous pen RxNorm: 0855984 50 Unit(s) SQ daily 08/30/2018 09/28/2018 Inactive please give him 30 day supply Novolog Flexpen U-100 Insulin aspart 100 unit/mL subcutaneous RxNorm: 1708772 8 Unit(s) SQ AC 08/13/2018 No Stop Date Active Novolog Flexpen U-100 Insulin aspart 100 unit/mL subcutaneous RxNorm: 6360373 8 Unit(s) SQ AC 07/22/20182017 Inactive this is an update on his medication Novolog Flexpen U-100 Insulin aspart 100 unit/mL subcutaneous RxNorm: 8141535 12 Unit(s) SQ AC 07/05/20182017 Inactive this is an update on his medication Toujeo SoloStar U-300 Insulin 300 unit/mL (1.5 mL) subcutaneous pen RxNorm: 7113215 INJECT 50 UNITS UNDER THE SKIN DAILY 07/01/2018 08/29/2018 Inactive Mucinex 600 mg tablet, extended release RxNorm: 529260 1 Tablet(s) PO BID 06/28/2018 07/04/2018 Inactive Zofran 4 mg tablet RxNorm: 156870 1 Tablet(s) PO TID as needed nausea 06/28/2018 07/02/2018 Inactive Kenalog 40 mg/mL suspension for injection RxNorm: 0732981 Milliliter(s) Inj 06/28/2018 06/28/2018 Inactive Flonase Allergy Relief 50 mcg/actuation nasal spray, suspension RxNorm: 8921244 1 [place] NASAL BID 06/28/20182017 Inactive Lyrica 50 mg capsule RxNorm: 781515 Capsule(s) PO daily 201707/06/2018 Inactive Novolog Flexpen U-100 Insulin aspart 100 unit/mL subcutaneous RxNorm: 8110920 10 Unit(s) SQ AC 06/18/20182017 Inactive this is an update on his medication Lasix 20 mg tablet RxNorm: 882157 1 Tablet(s) PO BIW 201707/02/2018 Inactive atorvastatin 80 mg tablet RxNorm: 037179 1 Tablet(s) PO QHS 04/201812/06/2018 Inactive clonazepam 1 mg tablet RxNorm: 036859 2 Tablet(s) PO HS as needed 06/10/2018 06/08/2018 Inactive clonazepam 1 mg tablet RxNorm: 122105 2 Tablet(s) PO HS 201702/17/2019 Inactive Lyrica 50 mg capsule RxNorm: 936895 Capsule(s) PO daily 201707/08/2018 Inactive Lasix 20 mg tablet RxNorm: 742016 1 Tablet(s) PO TIW 201706/11/2018 Inactive Toujeo SoloStar U-300 Insulin 300 unit/mL (1.5 mL) subcutaneous pen RxNorm: 4806949 50 Unit(s) SQ daily 05/07/2018 06/30/2018 Inactive meloxicam 15 mg tablet RxNorm: 858847 15 Milligram(s) PO daily 05/02/2018 05/12/2018 Inactive ketorolac 30 mg/mL injection solution RxNorm: 633868 2 Milliliter(s) Inj 05/02/2018 05/02/2018 Inactive Toujeo SoloStar U-300 Insulin 300 unit/mL (1.5 mL) subcutaneous pen RxNorm: 9349404 45 Unit(s) daily 04/29/2018 Inactive clonazepam 1 mg tablet RxNorm: 265562 1 Tablet(s) PO Q8 as needed 04/29/2018 06/09/2018 Inactive doxycycline hyclate 100 mg tablet RxNorm: 2046581 1 Tablet(s) PO BID 04/29/2018 05/12/2018 Inactive Cymbalta 30 mg capsule,delayed release RxNorm: 444366 1 Capsule(s) PO QAM 03/13/2018 10/08/2018 Inactive Lexapro 10 mg tablet RxNorm: 930496 1 Tablet(s) PO QPM 201703/03/2018 Inactive Toujeo SoloStar U-300 Insulin 300 unit/mL (1.5 mL) subcutaneous pen RxNorm: 4035627 20 Unit(s) daily 02/28/2018 Inactive Protonix 40 mg tablet,delayed release RxNorm: 082323 1 Tablet(s) PO daily 01/29/2018 06/09/2018 Inactive clonazepam 1 mg tablet RxNorm: 866142 1 Tablet(s) PO Q8 as needed 12/12/2017 03/10/2018 Inactive Tamiflu 75 mg capsule RxNorm: 759583 1 Capsule(s) PO BID 201712/03/2017 Inactive doxycycline hyclate 100 mg capsule RxNorm: 2938190 1 Capsule(s) PO BID 09/07/2017 09/20/2017 Inactive doxycycline hyclate 100 mg capsule RxNorm: 1500398 1 Capsule(s) PO BID 08/27/2017 09/06/2017 Inactive prednisone 20 mg tablet RxNorm: 144078 2 Tablet(s) PO daily 08/31/2017 Inactive clopidogrel 75 mg tablet RxNorm: 654747 1 Tablet(s) PO daily 06/09/2018 Inactive atorvastatin 40 mg tablet RxNorm: 622629 1 Tablet(s) PO QHS 02/27/2018 Inactive losartan 25 mg tablet RxNorm: 782557 TAKE ONE TABLET BY MOUTH DAILY 08/22/2017 06/09/2018 Inactive Toujeo SoloStar 300 unit/mL (1.5 mL) subcutaneous insulin pen RxNorm: 7290846 45 Unit(s) daily 08/17/2017 08/20/2017 Inactive mupirocin 2 % topical ointment RxNorm: 589479 1 Application TOP TID to the lesions on chest 08/16/2017 08/25/2017 Inactive Toujeo SoloStar 300 unit/mL (1.5 mL) subcutaneous insulin pen RxNorm: 5074147 40 Unit(s) daily 08/16/2017 08/16/2017 Inactive valacyclovir 1 gram tablet RxNorm: 560646 1 Tablet(s) PO TID 08/01/2017 Inactive clonazepam 1 mg tablet RxNorm: 240942 1 Tablet(s) PO Q8 as needed 07/03/2017 09/30/2017 Inactive Levaquin 500 mg tablet RxNorm: 170772 1 Tablet(s) PO daily 06/25/2017 Inactive Levaquin 500 mg tablet RxNorm: 753043 1 Tablet(s) PO daily 06/21/2017 Inactive losartan 25 mg tablet RxNorm: 154657 1 Tablet(s) PO daily 201608/16/2017 Inactive nystatin 100,000 unit/mL oral suspension RxNorm: 692814 5 Milliliter(s) PO QID Swish et swallow 06/18/2017 06/17/2017 Inactive nystatin 100,000 unit/mL oral suspension RxNorm: 974880 5 Milliliter(s) PO QID Swish et swallow 06/18/2017 06/27/2017 Inactive Cipro 500 mg tablet RxNorm: 355129 1 Tablet(s) PO BID 201606/18/2017 Inactive Cipro 500 mg tablet RxNorm: 930352 1 Tablet(s) PO BID 201606/11/2017 Inactive Toujeo SoloStar 300 unit/mL (1.5 mL) subcutaneous insulin pen RxNorm: 1194332 INJECT 10 UNITS UNDER THE SKIN DAILY 06/12/2017 08/15/2017 Inactive Keflex 500 mg capsule RxNorm: 559334 1 Capsule(s) PO TID 201606/13/2017 Inactive doxycycline hyclate 100 mg capsule RxNorm: 4971475 1 Capsule(s) PO BID 05/17/2017 05/21/2017 Inactive doxycycline hyclate 100 mg capsule RxNorm: 1556844 1 Capsule(s) PO BID 05/11/2017 05/16/2017 Inactive losartan 25 mg tablet RxNorm: 003591 1 Tablet(s) PO daily 201606/17/2017 Inactive atorvastatin 40 mg tablet RxNorm: 902772 1 Tablet(s) PO daily 03/01/2017 08/23/2017 Inactive clopidogrel 75 mg tablet RxNorm: 079645 1 Tablet(s) PO daily 08/23/2017 Inactive Flonase Allergy Relief 50 mcg/actuation nasal spray, suspension RxNorm: 0221624 2 [place] NASAL daily 02/16/20172016 Inactive Augmentin 875 mg-125 mg tablet RxNorm: 480982 1 Tablet(s) PO BID 02/16/2017 02/22/2017 Inactive GET PROBIOTIC TO TAKE WHILE ON ABX Tamiflu 75 mg capsule RxNorm: 159004 1 Capsule(s) PO BID 201602/20/2017 Inactive ceftriaxone 500 mg solution for injection RxNorm: 3239420 1 Milliliter(s) Inj 02/16/2017 02/16/2017 Inactive Kenalog 40 mg/mL suspension for injection RxNorm: 9439883 1 Milliliter(s) Inj 02/16/2017 02/16/2017 Inactive Toujeo SoloStar 300 unit/mL (1.5 mL) subcutaneous insulin pen RxNorm: 4010998 25 Unit(s) SQ QAM 02/12/2017 06/10/2017 Inactive Toujeo SoloStar 300 unit/mL (1.5 mL) subcutaneous insulin pen RxNorm: 9068091 10 Unit(s) SQ QAM 02/05/2017 02/11/2017 Inactive lisinopril 10 mg tablet RxNorm: 756755 1 Tablet(s) PO daily 02/28/2017 Inactive atorvastatin 40 mg tablet RxNorm: 892679 1 Tablet(s) PO daily 02/01/2017 02/28/2017 Inactive doxycycline hyclate 100 mg capsule RxNorm: 6636686 1 Capsule(s) PO BID 02/01/2017 02/10/2017 Inactive clonazepam 1 mg tablet RxNorm: 993296 1 Tablet(s) PO Q8 as needed 10/09/2016 01/05/2017 Inactive ceftriaxone 1 gram solution for injection RxNorm: 4765956 Inj 10/06/2016 10/06/2016 Inactive cyclobenzaprine 10 mg tablet RxNorm: 022029 1/2-1 Tablet(s) PO TID PRN 07/18/2016 01/28/2017 Inactive clonazepam 1 mg tablet RxNorm: 924729 1 Tablet(s) PO Q8 as needed 05/31/2016 05/29/2016 Inactive clonazepam 1 mg tablet RxNorm: 163371 1 Tablet(s) PO Q8 as needed 05/31/2016 08/28/2016 Inactive Toujeo SoloStar 300 unit/mL (1.5 mL) subcutaneous insulin pen RxNorm: 8619939 10 Unit(s) SQ daily 05/23/2016 01/28/2017 Inactive Crestor 10 mg tablet RxNorm: 909298 1 Tablet(s) PO QHS 201501/28/2017 Inactive Crestor 10 mg tablet RxNorm: 067132 1 Tablet(s) PO QHS 201505/18/2016 Inactive clonazepam 1 mg tablet RxNorm: 055104 1 Tablet(s) PO Q8 as needed 04/25/2016 05/30/2016 Inactive prednisone 20 mg tablet RxNorm: 891410 3 Tablet(s) PO daily 06/201602/10/2016 Inactive prednisone 20 mg tablet RxNorm: 749363 3 Tablet(s) PO daily 06/201605/14/2016 Inactive Kenalog 40 mg/mL suspension for injection RxNorm: 7919628 Milliliter(s) Inj 01/20/2016 01/20/2016 Inactive aspirin 81 mg tablet,delayed release RxNorm: 194549 1 Tablet(s) PO daily No Start Date Active Brilinta 90 mg tablet RxNorm: 1053624 1 Tablet(s) PO BID No Start Date Active acetaminophen 500 mg tablet RxNorm: 275953 1-2 Tablet(s) PO as needed No Start Date Active clopidogrel 75 mg tablet RxNorm: 568182 1 Tablet(s) PO daily No Start Date 02/28/2017 Inactive Novolog Flexpen U-100 Insulin aspart 100 unit/mL subcutaneous RxNorm: 7718436 5 units with breakfast lunch and 10 supper Unit(s) SQ No Start Date 06/17/2018 Inactive clonazepam 1 mg tablet RxNorm: 677658 1 Tablet(s) PO QHS No Start Date 04/24/2016 Inactive Coreg 6.25 mg tablet RxNorm: 890059 1 Tablet(s) PO BID No Start Date 09/29/2018 Inactive acyclovir 400 mg tablet RxNorm: 231106 2 Tablet(s) PO 5x daily No Start Date 02/28/2017 Inactive Lyrica 50 mg capsule RxNorm: 349368 Capsule(s) PO BID No Start Date 06/09/2018 Inactive Vraylar 3 mg capsule RxNorm: 5494920 1 Capsule(s) PO daily No Start Date 03/12/2018 Inactive valsartan 80 mg tablet RxNorm: 273191 1 Tablet(s) PO daily No Start Date 10/22/2018 Inactive Medication Administered Medication Codes Instructions Start Date Status ketorolac 60 mg/2 mL intramuscular solution RxNorm: 4884725 Milliliter 10/21/2018 No longer Active Kenalog 40 mg/mL suspension for injection RxNorm: 7675440 1.5Milliliter 09/30/2018 No longer Active Kenalog 40 mg/mL suspension for injection RxNorm: 0594066 Milliliter 09/11/2018 No longer Active Kenalog 40 mg/mL suspension for injection RxNorm: 9748748 Milliliter 06/28/2018 No longer Active ketorolac 30 mg/mL injection solution RxNorm: 329091 2Milliliter 05/02/2018 No longer Active ceftriaxone 500 mg solution for injection RxNorm: 7141085 1Milliliter 02/16/2017 No longer Active Kenalog 40 mg/mL suspension for injection RxNorm: 4496780 1Milliliter 02/16/2017 No longer Active ceftriaxone 1 gram solution for injection RxNorm: 4180530 10/06/2016 No longer Active Kenalog 40 mg/mL suspension for injection RxNorm: 9830811 Milliliter 01/20/2016 No longer Active Immunizations Vaccine Codes Date Status Influenza CVX: 141 07/22/2018 completed Influenza CVX: 141 08/16/2017 completed Assessments Condition Codes Effective Dates Other fatigue ICD-10: R53.83 ICD-9: 780.79 02/17/2019 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-10: I95.2 ICD-9: 458.8 02/17/2019 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-10: I25.10 [...] Item Item Code Result Date Culture Sputum 287785 LOWER RESPIRATORY TRACT CULTURE SEE NOTES 11/14/2018 Culture Sputum 766361 LOWER RESPIRATORY TRACT CULTURE SEE NOTES 10/16/2018 LIPID GRP [id number] CHOLESTEROL TNP:Duplicate Order 09/10/2018 LIPID GRP [id number] Triglyceride TNP:Duplicate Order 2017 LIPID GRP HDL CHOLESTEROL TNP:Duplicate Order 2017 LIPID GRP 5436405 Chol/HDL Ratio TNP:Duplicate Order 2017 LIPID GRP 4691509 LDL Cholesterol TNP:Duplicate Order 2017 A1C HPLC 7531116 Hgb A1c 51432-9 TNP:Duplicate Order 2017 C Diff An [id number] GDH TNP:Lab Request 06/22/2018 C Diff An [id number] Toxin A/B TNP:Lab Request 06/22/2018 C Diff An [id number] C Diff Analyzer TNP:Lab Request 2017 C Diff An [id number] IC OK? TNP:Lab Request 06/22/2018 CBC 1727646 WBC 6.4 10e9/L 05/02/2018 CBC 9453343 RBC 5.60 10e12/L 05/02/2018 CBC 0282478 HEMOGLOBIN 17.0 g/dL 05/02/2018 CBC 4162424 HEMATOCRIT 48.0 % 05/02/2018 CBC 0952506 MCV 85.7 fL 05/02/2018 CBC 9149802 MCH 30.4 pg 05/02/2018 CBC 6323381 MCHC 35.4 g/dL 05/02/2018 CBC 0182589 PLATELET COUNT 166 10e9/L 05/02/2018 CBC 0322414 Mean Plt Volume 11.6 fL 05/02/2018 CBC 6203681 Neut Auto 48.6 % 05/02/2018 CBC 7814273 Lymph Auto 41.7 % 05/02/2018 CBC 1896386 [place] Auto 8.1 % 05/02/2018 CBC 5992197 RDW 13.1 % 05/02/2018 CBC 4698826 Eos Auto 1.1 % 05/02/2018 CBC 6491029 Baso Auto 0.5 % 05/02/2018 CBC 3663184 Neutrophil Abs 3.11 10e9/L 05/02/2018 CBC 2698689 Lymphocyte Abs 2.67 10e9/L 05/02/2018 CBC 3943518 Monocyte Abs 0.52 10e9/L 05/02/2018 CBC 3713386 Eosinophil Abs 0.07 10e9/L 05/02/2018 CBC 9339986 RDW-SD 40.0 fL 05/02/2018 CBC 7577594 Basophil Abs 0.03 10e9/L 05/02/2018 CHEM 14 5527013 AST 17 U/L 05/02/2018 CHEM 14 6217792 ALT 17 U/L 05/02/2018 CHEM 14 3801258 BUN 17 mg/dL 05/02/2018 CHEM 14 1412267 ALBUMIN 4.0 g/dL 05/02/2018 CHEM 14 5186635 CHLORIDE 97 mmol/L 05/02/2018 CHEM 14 0966191 Bili Total 0.9 mg/dL 05/02/2018 CHEM 14 2129981 ALK PHOS 67 U/L 05/02/2018 CHEM 14 0115191 SODIUM 135 mmol/L 05/02/2018 CHEM 14 6946751 CREATININE 1.18 mg/dL 05/02/2018 CHEM 14 6588124 CALCIUM 9.4 mg/dL 05/02/2018 CHEM 14 5130541 POTASSIUM 4.4 mmol/L 05/02/2018 CHEM 14 2885425 TOTAL PROTEIN 6.9 g/dL 05/02/2018 CHEM 14 2100149 GLUCOSE 316 mg/dL 05/02/2018 CHEM 14 9923021 Bicarbonate 29 mmol/L 05/02/2018 CHEM 14 8574657 AGAP 9 mmol/L 05/02/2018 MEAN GLUC 8478084 Calc Mean Gluc 283 mg/dL 05/02/2018 A1C HPLC 5525939 Hgb A1c 41371-1 11.5 % 05/02/2018 GFR CALC 6401118 GFR Non Afr Amr >60 mL/min 05/02/2018 GFR CALC 2590820 GFR Afr Amr >60 mL/min 05/02/2018 [facility] Gold [id number] [facility] Gold Complete 02/28/2018 GFR CALC 7080022 GFR Non Afr Amr >60 mL/min 02/28/2018 GFR CALC 2589794 GFR Afr Amr >60 mL/min 02/28/2018 UA W/CII 1688978 UA Urine Appear Normal 02/28/2018 UA W/CII 5378392 UA Protein 1+ 02/28/2018 UA W/CII 4947832 UA Hemoglobin Negative 02/28/2018 UA W/CII 7735834 UA Glucose 4+ 02/28/2018 UA W/CII 4110521 UA Ketones Trace 02/28/2018 UA W/CII 1929496 UA pH 5.5 02/28/2018 UA W/CII 1942577 U Spec [place] 1.015 02/28/2018 UA W/CII 6500948 UA Bilirubin Negative 02/28/2018 UA W/CII 7219879 UA Nitrite NEG 02/28/2018 UA W/CII 7641605 UA Leuk Esteras Negative 02/28/2018 MICR 3739839 UA WBC/hpf 1 02/28/2018 MICR 9329949 UA RBC hpf 2 02/28/2018 MICR 0902883 UA WBC auto 3.8 /uL 02/28/2018 MICR 1896373 UA RBC auto 12.2 /uL 02/28/2018 MICR 9501445 UA SQ EPI auto 2.3 /uL 02/28/2018 MICR 9302298 UA H Cast auto 0.10 /uL 02/28/2018 CBC 4704877 WBC 6.4 10e9/L 02/28/2018 CBC 4897182 RBC 5.51 10e12/L 02/28/2018 CBC 1148225 HEMOGLOBIN 16.7 g/dL 02/28/2018 CBC 2975407 HEMATOCRIT 46.9 % 02/28/2018 CBC 0317399 MCV 85.1 fL 02/28/2018 CBC 9629589 MCH 30.3 pg 02/28/2018 CBC 4981907 MCHC 35.6 g/dL 02/28/2018 CBC 4489942 PLATELET COUNT 173 10e9/L 02/28/2018 CBC 4048674 Mean Plt Volume 11.6 fL 02/28/2018 CBC 8974212 Neut Auto 51.8 % 02/28/2018 CBC 7820114 Lymph Auto 39.9 % 02/28/2018 CBC 7288952 [place] Auto 7.3 % 02/28/2018 CBC 4495189 RDW 13.3 % 02/28/2018 CBC 4736784 Eos Auto 0.8 % 02/28/2018 CBC 9347414 Baso Auto 0.2 % 02/28/2018 CBC 8151956 Neutrophil Abs 3.32 10e9/L 02/28/2018 CBC 7814930 Lymphocyte Abs 2.55 10e9/L 02/28/2018 CBC 0658501 Monocyte Abs 0.47 10e9/L 02/28/2018 CBC 8641536 Eosinophil Abs 0.05 10e9/L 02/28/2018 CBC 8989387 RDW-SD 40.8 fL 02/28/2018 CBC 1035211 Basophil Abs 0.01 10e9/L 02/28/2018 CHEM 14 1335673 AST 17 U/L 02/28/2018 CHEM 14 9745499 ALT 17 U/L 02/28/2018 CHEM 14 0947165 BUN 20 mg/dL 02/28/2018 CHEM 14 3440983 ALBUMIN 4.1 g/dL 02/28/2018 CHEM 14 3361900 CHLORIDE 97 mmol/L 02/28/2018 CHEM 14 2071042 Bili Total 1.3 mg/dL 02/28/2018 CHEM 14 2046504 ALK PHOS 78 U/L 02/28/2018 CHEM 14 5828181 SODIUM 135 mmol/L 02/28/2018 CHEM 14 2354983 CREATININE 1.09 mg/dL 02/28/2018 CHEM 14 2937583 CALCIUM 9.6 mg/dL 02/28/2018 CHEM 14 2218950 POTASSIUM 3.8 mmol/L 02/28/2018 CHEM 14 9937160 TOTAL PROTEIN 7.3 g/dL 02/28/2018 CHEM 14 7196446 GLUCOSE 349 mg/dL 02/28/2018 CHEM 14 5205392 Bicarbonate 29 mmol/L 02/28/2018 CHEM 14 7584288 AGAP 9 mmol/L 02/28/2018 [place] Spotted Fever Igg/Igm 441989 FEI MT SPOTTED FEVER IGM EIA . 09/05/2017 [place] Spotted Fever Igg/Igm 010288 RMSF, IGM 0.17 index 09/05/2017 [place] Spotted Fever Igg/Igm 243367 FEI MT SPOTTED FEVER IGG EIA FLEX . 09/05/2017 [place] Spotted Fever Igg/Igm 501856 RMSF, IGG SCREEN-FLEX Positive 09/05/2017 Fei Mtn Spot'D Fev Igg 698632 RMSF, IGG -TITER IFA <1:64 11/2016 Ehrlichia Chaffeensis Antibody Igm 669634 EHRLICHIA CHAFFEENSIS IGM < 1:16 09/03/2017 Ehrlichia Chaffeensis Antibody Igg 958177 EHRLICHIA CHAFFEENSIS IGG <1:64 09/03/2017 Lymes Disease Total Antibodies With Western Blot Reflex B. BURGDORFERI, IGG/IGM 0.223 08/30/2017 [place]ymes Disease Total Antibodies With Western Blot Reflex C-Reactive Protein Qnt Crqnt CRP 0.00 mg/dl 08/27/2017 Sed Rate Ord21 ESR 8 mm/hr 08/27/2017 Comp Metabolic Eiv944 NA 135 mEq/L 08/16/2017 Comp Metabolic Xqm031 K 4.1 mEq/L 08/16/2017 Comp Metabolic Vux618 CL 98 mEq/L 08/16/2017 Comp Metabolic Xfv347 CO2 28.0 mEq/L 08/16/2017 Comp Metabolic Mdd088 ANION GAP 13 08/16/2017 Comp Metabolic Tby847 GLUCOSE 299 mg/dL 08/16/2017 Comp Metabolic Udp021 Creat 0.9 mg/dL 08/16/2017 Comp Metabolic Fwb830 eGFR 90 ml/min/1.73m2 08/16/2017 Comp Metabolic Hqh029 BUN 20 mg/dL 08/16/2017 Comp Metabolic Etw068 B/C Ratio 21.5 Ratio 08/16/2017 Comp Metabolic Cxr788 CALCIUM 9.2 mg/dL 08/16/2017 Comp Metabolic Yyq451 ALK PHOS 84 U/L 08/16/2017 Comp Metabolic Qqy390 AST(SGOT) 19 U/L 08/16/2017 Comp Metabolic Ykf416 ALT(SGPT) 24 U/L 08/16/2017 Comp Metabolic Ual106 BILI T 1.1 mg/dL 08/16/2017 Comp Metabolic Wrt758 ALBUMIN 4.2 g/dL 08/16/2017 Comp Metabolic Buq553 TPRO 7.2 g/dL 08/16/2017 Comp Metabolic Cat179 GLOB 3.0 g/dL 08/16/2017 Comp Metabolic Byd761 A/G Ratio 1.4 Ratio 08/16/2017 Comp Metabolic Bqm178 Osmo 284 mOsmo 08/16/2017 %Hba1C Fsk517 % HbA1c 98105-2 12.5 % 08/16/2017 %Hba1C Psr693 Gluc Ave 312 mg/dL 08/16/2017 Urine Culture Ucult Preliminary NO Growth Day 1 06/23/2017 Urine Culture Ucult Complete NO Growth Day 2 06/23/2017 C RAP A SC [id number] Strep A Negative 06/08/2017 %Hba1C Qaf782 % HbA1c 34180-3 9.5 % 05/04/2017 %Hba1C Snz821 Gluc Ave 226 mg/dL 05/04/2017 Tsh Ord6 [...] 31.7 pg 05/04/2017 Cbc With Differential Ord2 [place]% 8.5 % 05/04/2017 Cbc With Differential Ord2 [...] 2.48 K/ul 05/04/2017 Cbc With Differential Ord2 [place] ABS# 0.5 K/ul 05/04/2017 Cbc With Differential Ord2 Eos ABS# 0.1 K/ul 05/04/2017 Cbc With Differential Ord2 Baso ABS# 0.0 K/ul 05/04/2017 Comp Metabolic Cwa438 NA 135 mEq/L 05/04/2017 Comp Metabolic Jug606 K 4.2 mEq/L 05/04/2017 Comp Metabolic Ync165 CL 99 mEq/L 05/04/2017 Comp Metabolic Fme804 CO2 26.0 mEq/L 05/04/2017 Comp Metabolic Hvc815 ANION GAP 14 05/04/2017 Comp Metabolic Ohp688 GLUCOSE 277 mg/dL 05/04/2017 Comp Metabolic Yrr003 Creat 0.9 mg/dL 05/04/2017 Comp Metabolic Rpa197 eGFR 96 ml/min/1.73m2 05/04/2017 Comp Metabolic Nmc205 BUN 23 mg/dL 05/04/2017 Comp Metabolic Vtk884 B/C Ratio 26.1 Ratio 05/04/2017 Comp Metabolic Uam132 CALCIUM 8.9 mg/dL 05/04/2017 Comp Metabolic God780 ALK PHOS 81 U/L 05/04/2017 Comp Metabolic Qzt023 AST(SGOT) 21 U/L 05/04/2017 Comp Metabolic Wvl622 ALT(SGPT) 27 U/L 05/04/2017 Comp Metabolic Mgw998 BILI T 1.2 mg/dL 05/04/2017 Comp Metabolic Rjz033 ALBUMIN 4.0 g/dL 05/04/2017 Comp Metabolic Mko809 TPRO 6.7 g/dL 05/04/2017 Comp Metabolic Bwf092 GLOB 2.7 g/dL 05/04/2017 Comp Metabolic Jpt747 A/G Ratio 1.5 Ratio 05/04/2017 Comp Metabolic Mhg580 Osmo 284 mOsmo 05/04/2017 C A/B FLU [id number] Influenza A Scr Negative 02/16/2017 C A/B FLU [id number] Influenza B Scr Positive 02/16/2017 Cbc With [...] 30.3 pg 05/23/2016 Cbc With Differential Ord2 [place]% 8.8 % 05/23/2016 Cbc With Differential Ord2 [...] 2.07 K/ul 05/23/2016 Cbc With Differential Ord2 [place] ABS# 0.5 K/ul 05/23/2016 Cbc With Differential Ord2 Eos ABS# 0.1 K/ul 05/23/2016 Cbc With Differential Ord2 Baso ABS# 0.0 K/ul 05/23/2016 Lipid Ord30 CHOL 397 mg/dL 05/17/2016 Lipid Ord30 HDL 48.0 mg/dl 05/17/2016 Lipid Ord30 TRIG 578 mg/dL 05/17/2016 Lipid Ord30 LDL Unable to calculate Due to elevated triglycerides mg/dL 05/17/2016 Lipid Ord30 C/HDL 8.3 Ratio 05/17/2016 %Hba1C Jtr768 % HbA1c 09809-8 12.4 % 05/16/2016 %Hba1C Qxn025 Gluc Ave 309 mg/dL 05/16/2016 Cbc With [...] 30.4 pg 05/15/2016 Cbc With Differential Ord2 [place]% 7.8 % 05/15/2016 Cbc With Differential Ord2 [...] 2.04 K/ul 05/15/2016 Cbc With Differential Ord2 [place] ABS# 0.5 K/ul 05/15/2016 Cbc With Differential Ord2 Eos ABS# 0.1 K/ul 05/15/2016 Cbc With Differential Ord2 Baso ABS# 0.0 K/ul 05/15/2016 Tsh Ord6 hTSH II 1.70 uIU/mL 05/15/2016 Comp Metabolic Evm893 NA 135 mEq/L 05/15/2016 Comp Metabolic Jta839 K 3.9 mEq/L 05/15/2016 Comp Metabolic Obt004 CL 96 mEq/L 05/15/2016 Comp Metabolic Iwl250 CO2 27.0 mEq/L 05/15/2016 Comp Metabolic Hgs224 ANION GAP 16 05/15/2016 Comp Metabolic Pwi777 GLUCOSE 183 mg/dL 05/15/2016 Comp Metabolic Oka058 Creat 1.1 mg/dL 05/15/2016 Comp Metabolic Oqd225 eGFR 71 ml/min/1.73m2 05/15/2016 Comp Metabolic Enh894 BUN 17 mg/dL 05/15/2016 Comp Metabolic Fgh903 B/C Ratio 14.9 Ratio 05/15/2016 Comp Metabolic Ooa161 CALCIUM 9.6 mg/dL 05/15/2016 Comp Metabolic Mol454 ALK PHOS 100 U/L 05/15/2016 Comp Metabolic Pmd251 AST(SGOT) 20 U/L 05/15/2016 Comp Metabolic Wva426 ALT(SGPT) 20 U/L 05/15/2016 Comp Metabolic Dxy275 BILI T 1.3 mg/dL 05/15/2016 Comp Metabolic Dia501 ALBUMIN 4.6 g/dL 05/15/2016 Comp Metabolic Xzt518 TPRO 8.1 g/dL 05/15/2016 Comp Metabolic Mqv588 GLOB 3.5 g/dL 05/15/2016 Comp Metabolic Etm391 A/G Ratio 1.3 Ratio 05/15/2016 Comp Metabolic Ace796 Osmo 276 mOsmo 05/15/2016 Review of Systems [...] of skin Location: face 05/04/2017 patch left uatsdin Full Exam - General 1994 Constitutional general [...] Codes Date URINALYSIS NONAUTO W/O SCOPE CPT-4: 74549 02/17/2019 KETOROLAC TROMETHAMINE INJ CPT-4: J1885 10/21/2018 TRIAMCINOLONE ACET INJ NOS CPT-4: J3301 09/30/2018 THER/PROPH/DIAG INJ SC/IM CPT-4: 30307 09/11/2018 TRIAMCINOLONE ACET INJ NOS CPT-4: J3301 09/11/2018 IMMUNIZATION ADMIN CPT -4: 11737 07/22/2018 FLU VAC NO PRSV 4 MENA 3 YRS+ CPT-4: 28042 07/22/2018 TRIAMCINOLONE ACET INJ NOS CPT-4: J3301 06/28/2018 KETOROLAC TROMETHAMINE INJ CPT-4: J1885 05/02/2018 FLU VAC NO PRSV 4 MENA 3 YRS+ CPT-4: 08479 08/16/2017 IMMUNIZATION ADMIN CPT -4: 38104 08/16/2017 URINALYSIS NONAUTO W/O SCOPE CPT-4: 85898 06/21/2017 TRIAMCINOLONE ACET INJ NOS CPT-4: J3301 05/04/2017 THER/PROPH/DIAG INJ SC/IM CPT-4: 29183 05/04/2017 TRIAMCINOLONE ACET INJ NOS CPT-4: J3301 02/16/2017 ROCEPHIN, PER 250 MG CPT-4: J0696 02/16/2017 ROCEPHIN, PER 250 MG CPT-4: J0696 10/06/2016 URINALYSIS NONAUTO W/O SCOPE CPT-4: 26164 07/18/2016 TRIAMCINOLONE ACET INJ NOS CPT-4: J3301 01/20/2016 Vital Signs Date Vital 02/17/2019 Blood Pressure 1: 120/80 Code : 8480-6 Blood Pressure 2: 102/80 Code: 8480-6 Heart Rate 1: 89 bpm SpO2: 96% 01/13/2019 Blood Pressure 1: 120/70 Code : 8480-6 BMI: 34.2 Code : 85271-1 Heart Rate 1 : 74 bpm Height: 6'2" SpO2: 96% Weight: 266 lbs 12/31/2018 Blood Pressure 1: 122/70 Code : 8480-6 BMI: 34.4 Code : 57228-2 Heart Rate 1 : 90 bpm Height: 6'2" SpO2: 97% Temperature: 36.6 (C) / 97.8 (F) Weight: 268 lbs 12/26/2018 Blood Pressure 1: 118/72 Code : 8480-6 BMI: 34.4 Code : 70203-3 Heart Rate 1 : 82 bpm Height: 6'2" SpO2: 98% Temperature: 36.6 (C) / 97.9 (F) Weight: 268 lbs 11/18/2018 Blood Pressure 1: 120/84 Code : 8480-6 BMI: 33.9 Code : 91622-6 Heart Rate 1 : 77 bpm Height: 6'2" SpO2: 99% Temperature: 36.7 (C) / 98.1 (F) Weight: 264 lbs 11/12/2018 Blood Pressure 1: 138/76 Code : 8480-6 BMI: 33.9 Code : 07539-5 Heart Rate 1 : 91 bpm Height: 6'2" SpO2: 99% Weight: 264 lbs 10/30/2018 Blood Pressure 1: 130/72 Code : 8480-6 BMI: 33.3 Code : 27597-8 Heart Rate 1 : 83 bpm Height: 6'2" SpO2: 95% Temperature: 36.5 (C) / 97.7 (F) Weight: 259 lbs 10/24/2018 Blood Pressure 1: 130/70 Code : 8480-6 Heart Rate 1: 95 bpm Height: 6'2" SpO2: 96% 10/23/2018 Blood Pressure 1: 100/70 Code : 8480-6 Blood Pressure 2: 102/70 Code: 8480-6 BMI: 33.3 Code: 97772-6 Heart Rate 1: 106 bpm Height: 6'2" SpO2: 98% Weight: 259 lbs 10/21/2018 Blood Pressure 1: 140/90 Code : 8480-6 BMI: 32.9 Code : 54879-4 Heart Rate 1 : 96 bpm Height: 6'2" SpO2: 92% Weight: 256 lbs 10/17/2018 Blood Pressure 1: 110/68 Code : 8480-6 BMI: 32.9 Code : 54337-9 Heart Rate 1 : 82 bpm Height: 6'2" SpO2: 97% Weight: 256 lbs 10/14/2018 Blood Pressure 1: 124/70 Code : 8480-6 BMI: 33.6 Code : 48834-7 Heart Rate 1 : 76 bpm Height: 6'2" SpO2: 99% Temperature: 36.3 (C) / 97.3 (F) Weight: 262 lbs 09/30/2018 Blood Pressure 1: 138/82 Code : 8480-6 BMI: 33.6 Code : 96979-6 Heart Rate 1 : 82 bpm Height: 6'2" SpO2: 98% Temperature: 36.3 (C) / 97.3 (F) Weight: 262 lbs 09/09/2018 Blood Pressure 1: 140/80 Code : 8480-6 BMI: 33.0 Code : 42124-5 Heart Rate 1 : 97 bpm Height: 6'2" SpO2: 93% Temperature: 36.8 (C) / 98.2 (F) Weight: 257 lbs 07/22/2018 Blood Pressure 1: 120/78 Code : 8480-6 BMI: 31.6 Code : 69824-0 Heart Rate 1 : 87 bpm Height: 6'2" SpO2: 98% Weight: 246 lbs 07/16/2018 Blood Pressure 1: 132/74 Code : 8480-6 BMI: 31.2 Code : 63363-8 Heart Rate 1 : 90 bpm Height: 6'2" SpO2: 96% Weight: 243 lbs 07/01/2018 Blood Pressure 1: 142/82 Code : 8480-6 BMI: 31.8 Code : 21581-8 Heart Rate 1 : 88 bpm Height: 6'2" SpO2: 98% Weight: 248 lbs 06/28/2018 Blood Pressure 1: 132/76 Code : 8480-6 BMI: 31.8 Code : 81110-7 Heart Rate 1 : 107 bpm Height: 6'2" SpO2: 98% Temperature: 37.9 (C) / 100.3 (F) Weight: 248 lbs 06/18/2018 Blood Pressure 1: 138/82 Code : 8480-6 BMI: 31.8 Code : 89004-1 Heart Rate 1 : 82 bpm Height: 6'2" SpO2: 97% Weight: 248 lbs 06/04/2018 Blood Pressure 1: 128/84 Code : 8480-6 BMI: 33.9 Code : 36626-5 Heart Rate 1 : 86 bpm Height: 6'2" SpO2: 95% Weight: 264 lbs 05/13/2018 Blood Pressure 1: 130/80 Code : 8480-6 BMI: 31.1 Code : 54307-1 Heart Rate 1 : 100 bpm Height: 6'2" SpO2: 94% Weight: 242 lbs 05/02/2018 Blood Pressure 1: 134/84 Code : 8480-6 BMI: 31.2 Code : 33854-3 Heart Rate 1 : 93 bpm Height: 6'2" SpO2: 98% Weight: 243 lbs 04/29/2018 Blood Pressure 1: 142/88 Code : 8480-6 BMI: 31.6 Code : 66394-5 Heart Rate 1 : 96 bpm Height: 6'2" SpO2: 96% Temperature: 36.7 (C) / 98.1 (F) Weight: 246 lbs 03/13/2018 Blood Pressure 1: 120/76 Code : 8480-6 BMI: 30.9 Code : 50668-7 Heart Rate 1 : 112 bpm Height: 6'2" SpO2: 97% Weight: 241 lbs 03/07/2018 Blood Pressure 1: 108/78 Code : 8480-6 BMI: 30.0 Code : 62323-8 Heart Rate 1 : 87 bpm Height: 6'2" SpO2: 98% Weight: 234 lbs 02/28/2018 Blood Pressure 1: 106/74 Code : 8480-6 BMI: 30.0 Code : 84675-6 Heart Rate 1 : 101 bpm Height: 6'2" SpO2: 98% Temperature: 36.4 (C) / 97.5 (F) Weight: 234 lbs 02/13/2018 Blood Pressure 1: 110/78 Code : 8480-6 BMI: 30.0 Code : 71398-6 Heart Rate 1 : 106 bpm Height: 6'2" SpO2: 98% Weight: 234 lbs 01/29/2018 Blood Pressure 1: 106/68 Code : 8480-6 BMI: 30.0 Code : 04032-6 Heart Rate 1 : 108 bpm Height: 6'2" SpO2: 98% Weight: 234 lbs 08/27/2017 Blood Pressure 1: 134/76 Code : 8480-6 Heart Rate 1: 98 bpm Height: SpO2: 97% Weight: 08/16/2017 Blood Pressure 1: 128/80 Code : 8480-6 BMI: 32.0 Code : 67082-0 Heart Rate 1 : 94 bpm Height: [...] Code : 8480-6 BMI: 31.8 Code : 89115-8 Heart Rate 1 : 102 bpm Height: [...] Code : 8480-6 BMI: 31.8 Code : 86422-0 Heart Rate 1 : 85 bpm Height: 6'2" SpO2: 96% Temperature: 36.6 (C) / 97.9 (F) Weight: 248 lbs 02/12/2017 Blood Pressure 1: 126/76 Code : 8480-6 BMI: 31.8 Code : 82406-6 Heart Rate 1 : 106 bpm Height: 6'2" SpO2: 91% Weight: 248 lbs 02/05/2017 Blood Pressure 1: 146/86 Code : 8480-6 BMI: 31.9 Code : 44154-9 Heart Rate 1 : 98 bpm Height: 6'2" SpO2: 87% Temperature: 36.7 (C) / 98.0 (F) Weight: 248 lbs 8 oz 01/29/2017 Blood Pressure 1: 132/84 Code : 8480-6 BMI: 31.8 Code : 31263-9 Heart Rate 1 : 83 bpm Height: 6'2" SpO2: 97% Weight: 248 lbs 10/13/2016 Blood Pressure 1: 128/72 Code : 8480-6 Heart Rate 1: 86 bpm SpO2: 94% 10/09/2016 Blood Pressure 1: 128/68 Code : 8480-6 Heart Rate 1: 136 bpm SpO2: 94% Temperature: 36.8 (C) / 98.2 (F) 10/06/2016 Blood Pressure 1: 140/80 Code : 8480-6 BMI: 32.1 Code : 09501-4 Heart Rate 1 : 94 bpm Height: 6'2" SpO2: 95% Weight: 250 lbs 07/18/2016 Blood Pressure 1: 128/86 Code : 8480-6 BMI: 32.1 Code : 57407-6 Heart Rate 1 : 89 bpm Height: 6'2" SpO2: 96% Weight: 250 lbs 06/22/2016 Blood Pressure 1: 118/70 Code : 8480-6 BMI: 32.1 Code : 30730-8 Heart Rate 1 : 70 bpm Height: 6'2" SpO2: 97% Weight: 250 lbs 05/23/2016 Blood Pressure 1: 128/80 Code : 8480-6 BMI: 32.1 Code : 75328-5 Heart Rate 1 : 76 bpm Height: 6'2" SpO2: 98% Weight: 250 lbs 05/15/2016 Blood Pressure 1: 110/90 Code : 8480-6 BMI: 31.3 Code : 03991-3 Heart Rate 1 : 111 bpm Height: 6'2" SpO2: 97% Temperature: 36.6 (C) / 97.8 (F) Weight: 244 lbs 01/20/2016 Blood Pressure 1: 128/76 Code : 8480-6 BMI: 33.0 Code : 48163-9 Heart Rate 1 : 103 bpm Height: [...] data Encounters Encounter Performer Location Codes Date ([id number]) 66213 EST. PATIENT, LEVEL III Diagnosis: Hypotension due to drugs[ICD10: I95.2] Diagnosis: Other fatigue[ICD10: R53.83] Marcela Ha MD, [facility] CPT-4: 04116 02/17/2019 ([id number]) 62051 EST. 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 PATIENT, LEVEL IV Diagnosis: Type 2 diabetes mellitus with hyperglycemia[ICD10: E11.65] Diagnosis: Epigastric pain[ICD10: R10.13] Diagnosis: Pain in joints of right hand[ICD10: M25.541] Diagnosis: Shortness of breath[ICD10: R06.02] Marcela Ha MD, [facility] CPT-4: 00028 12/31/2018 93356 EST. PATIENT, LEVEL III Diagnosis: Other chest pain[ICD10: R07.89] Diagnosis: Cough[ICD10: R05] Madeline Ha MD, [facility] CPT-4: 64975 12/26/2018 ([id number]) 83967 EST. PATIENT, LEVEL III Diagnosis: Cough[ICD10: R05] Melida Ha MD, [facility] CPT-4: 29754 11/18/2018 ([id number]) 74002 EST. PATIENT, LEVEL III Diagnosis: Cough[ICD10: R05] Diagnosis: Pneumonia due to other Gram-negative bacteria[ICD10: J15.6] Marcela Ha MD, [facility] CPT-4: 27053 11/12/2018 ([id number]) 07276 EST. PATIENT, LEVEL III Diagnosis: Pneumonia due to other Gram-negative bacteria[ICD10: J15.6] Diagnosis: Cough[ICD10: R05] Melida Ha MD, [facility] CPT-4: 09927 10/30/2018 ([id number]) 67596 EST. PATIENT, LEVEL II Diagnosis: Pain in joints of right hand[ICD10: M25.541] Diagnosis: Trigger finger, right middle finger[ICD10: M65.331] Marcela Ha MD, [facility] CPT-4: 58442 10/24/2018 ([id number]) 35437 EST. PATIENT, LEVEL IV Diagnosis: Essential (primary) hypertension[ICD10: I10] Diagnosis: Type 2 diabetes mellitus with foot ulcer[ICD10: E11.621] Melida Ha MD, [facility] CPT-4: 33727 10/23/2018 ([id number]) 02115 EST. PATIENT, LEVEL III Diagnosis: Cellulitis of right finger[ICD10: L03.011] Diagnosis: Type 2 diabetes mellitus with foot ulcer[ICD10: E11.621] Diagnosis: Pain in right hand[ICD10: M79.641] Melida Ha MD, [facility] CPT-4: 60856 10/21/2018 13166 EST. PATIENT, LEVEL III Diagnosis: Spontaneous ecchymoses[ICD10: R23.3] Diagnosis: Cellulitis of right lower limb[ICD10: L03.115] Diagnosis: Cellulitis of left lower limb[ICD10: L03.116] Madeline Ha MD, [facility] CPT-4: 98612 10/17/2018 ([id number]) 38600 EST. PATIENT, LEVEL III Diagnosis: Cough[ICD10: R05] Diagnosis: Acute bronchitis, unspecified[ICD10: J20.9] Melida Ha MD, [facility] CPT-4: 51302 10/14/2018 [id number] EST. PATIENT, LEVEL III Diagnosis: Acute laryngopharyngitis[ICD10: J06.0] Diagnosis: Cough[ICD10: R05] Madeline Ha MD, [facility] CPT-4: 72098 09/30/2018 ([id number]) 71301 EST. PATIENT, LEVEL III Diagnosis: Acute recurrent maxillary sinusitis[ICD10: J01.01] Diagnosis: Cough[ICD10: R05] Diagnosis: Type 2 diabetes mellitus with hyperglycemia[ICD10: E11.65] Marcela Ha MD, [facility] CPT-4: 21178 09/09/2018 ([id number]) 25521 EST. PATIENT, LEVEL IV Diagnosis: Essential (primary) hypertension[ICD10: I10] Diagnosis: Mixed hyperlipidemia[ICD10: E78.2] Diagnosis: Bipolar disorder, current episode depressed, moderate[ICD10: F31.32] Diagnosis: Type 2 diabetes mellitus with other specified complication[ICD10: E11.69] Melida Ha MD, [facility] CPT-4: 73272 2017 ([id number]) 69983 EST. PATIENT, LEVEL III Diagnosis: Insomnia due to medical condition[ICD10: G47.01] Marcela Ha MD, [facility] CPT-4: 32871 07/16/2018 ([id number]) Miscellaneous no charge Diagnosis: Cough[ICD10: R05] Madeline Ha MD, [facility] CPT-4: 22148 07/01/2018 01414 EST. PATIENT, LEVEL III Diagnosis: Cough[ICD10: R05] Diagnosis: Acute laryngopharyngitis[ICD10: J06.0] Diagnosis: Other allergic rhinitis[ICD10: J30.89] Madeline Ha MD, [facility] CPT-4: 29885 06/28/2018 ([id number]) 32275 EST. PATIENT, LEVEL IV Diagnosis: Type 2 diabetes mellitus with hyperglycemia[ICD10: E11.65] Diagnosis: Essential (primary) hypertension[ICD10: I10] Melida Ha MD, [facility] CPT-4: 34231 06/18/2018 ([id number]) 86260 EST. PATIENT, LEVEL IV Diagnosis: Type 2 diabetes mellitus with hyperglycemia[ICD10: E11.65] Diagnosis: Essential (primary) hypertension[ICD10: I10] Diagnosis: Localized edema[ICD10: R60.0] Melida Ha MD, [facility] CPT- 4: 89331 06/04/2018 ([id number]) 08560 EST. PATIENT, LEVEL III Diagnosis: Type 2 diabetes mellitus with hyperglycemia[ICD10: E11.65] Diagnosis: Myalgia[ICD10: M79.1] Diagnosis: Pain in right hip[ICD10: M25.551] Diagnosis: Pain in left hip[ICD10: M25.552] Marcela Ha MD, [facility] CPT-4: 52916 05/13/2018 ([id number]) 31490 EST. PATIENT, LEVEL III Diagnosis: Myalgia[ICD10: M79.1] Diagnosis: Pain in right hip[ICD10: M25.551] Diagnosis: Pain in left hip[ICD10: M25.552] Marcela Ha MD, [facility] CPT-4: 14054 05/02/2018 ([id number]) 47271 EST. PATIENT, LEVEL IV Diagnosis: Essential (primary) hypertension[ICD10: I10] Diagnosis: Type 2 diabetes mellitus with hyperglycemia[ICD10: E11.65] Diagnosis: Major depressive disorder, single episode, moderate[ICD10: F32.1] Diagnosis: Myalgia[ICD10: M79.1] Marcela Ha MD, [facility] CPT-4: 65982 04/29/2018 ([id number]) 36982 EST. PATIENT, LEVEL IV Diagnosis: Type 2 diabetes mellitus with hyperglycemia[ICD10: E11.65] Diagnosis: Essential (primary) hypertension[ICD10: I10] Diagnosis: Major depressive disorder, single episode, moderate[ICD10: F32.1] Melida Ha MD, [facility] CPT-4: 24758 03/13/2018 ([id number]) 59427 EST. PATIENT, LEVEL III Diagnosis: Type 2 diabetes mellitus with hyperglycemia[ICD10: E11.65] Diagnosis: Bipolar disorder, current episode depressed, moderate[ICD10: F31.32] Diagnosis: Orthostatic hypotension[ICD10: I95.1] Marcela Ha MD, [facility] CPT-4: 35739 03/07/2018 ([id number]) 35001 EST. PATIENT, LEVEL IV Diagnosis: Type 2 diabetes mellitus with hyperglycemia[ICD10: E11.65] Diagnosis: Major depressive disorder, single episode, moderate[ICD10: F32.1] Diagnosis: Orthostatic hypotension[ICD10: I95.1] Diagnosis: Other fatigue[ICD10: R53.83] Marcela Ha MD, [facility] CPT-4: 09599 02/28/2018 50931 EST. PATIENT, LEVEL IV Diagnosis: Other fatigue[ICD10: R53.83] Diagnosis: Other malaise[ICD10: R53.81] Diagnosis: Gastro-esophageal reflux disease without esophagitis[ICD10: K21.9] Madeline Ha MD, [facility] CPT-4: 65787 02/13/2018 ([id number]) 58504 EST. PATIENT, LEVEL IV Diagnosis: Type 2 diabetes mellitus with foot ulcer[ICD10: E11.621] Diagnosis: Essential (primary) hypertension[ICD10: I10] Diagnosis: Gastro-esophageal reflux disease without esophagitis[ICD10: K21.9] Marcela Ha MD, [facility] CPT-4: 61844 01/29/2018 97020 EST. PATIENT, LEVEL III Diagnosis: Other malaise[ICD10: R53.81] Diagnosis: Other fatigue[ICD10: R53.83] Diagnosis: Pain in right shoulder[ICD10: M25.511] Diagnosis: Pain in left shoulder[ICD10: M25.512] Madeline Ha MD, [facility] CPT-4: 44176 08/27/2017 ([id number]) 53421 EST. PATIENT, LEVEL IV Diagnosis: Essential (primary) hypertension[ICD10: I10] Diagnosis: Type 2 diabetes mellitus with hyperglycemia[ICD10: E11.65] Diagnosis: VACCIN FOR INFLUENZA[ICD10: Z23] Melida Ha MD, [facility] CPT-4: 96339 08/16/2017 50217 EST. PATIENT, LEVEL III Diagnosis: Zoster without complications[ICD10: B02.9] Madeline Ha MD, [facility] CPT-4: 71716 07/26/2017 ([id number]) 70624 EST. PATIENT, LEVEL III Diagnosis: Cellulitis of right lower limb[ICD10: L03.115] Marcela Ha MD, [facility] CPT-4: 08102 07/03/2017 50255 EST. PATIENT, LEVEL II Diagnosis: Laceration without foreign body of left forearm, initial encounter[ ICD10: S51.812A] Marcela Ha MD, [facility] CPT-4: 70695 06/29/2017 ([id number]) 98224 EST. PATIENT, LEVEL III Diagnosis: Cellulitis of right lower limb[ICD10: L03.115] Diagnosis: Type 2 diabetes mellitus with foot ulcer[ICD10: E11.621] Marcela Ha MD [facility] CPT-4: 52089 06/18/2017 ([id number]) 16826 EST. PATIENT, LEVEL IV Diagnosis: Cellulitis of right lower limb[ICD10: L03.115] Diagnosis: Acute laryngopharyngitis[ICD10: J06.0] Diagnosis: Gastro-esophageal reflux disease without esophagitis[ICD10: K21.9] Marcela Ha MD, [facility] CPT-4: 72552 06/07/2017 ([id number]) 78984 EST. PATIENT, LEVEL III Diagnosis: Type 2 diabetes mellitus with hyperglycemia[ICD10: E11.65] Diagnosis: Insect bite (nonvenomous) of abdominal wall, initial encounter[ICD10 : S30.861A] Marcela Ha MD [facility] CPT-4: 11973 05/17/2017 ([id number]) 58570 EST. PATIENT, LEVEL III Diagnosis: Allergic contact dermatitis due to plants, except food[ICD10: L23.7] Melida Ha MD [facility] CPT-4: 65192 05/04/2017 ([id number]) 85173 EST. PATIENT, LEVEL III Diagnosis: Essential (primary) hypertension[ICD10: I10] Marcela Ha MD [facility] CPT-4: 45127 03/15/2017 ([id number]) 05666 EST. PATIENT, LEVEL III Diagnosis: Cough[ICD10: R05] Diagnosis: Essential (primary) hypertension[ICD10: I10] Marcela Ha MD [facility] CPT-4: 73701 03/01/2017 ([id number]) 94870 EST. PATIENT, LEVEL III Diagnosis: Cough[ICD10: R05] Diagnosis: Nasal congestion[ICD10: R09.81] Diagnosis: Acute recurrent maxillary sinusitis[ICD10: J01.01] Marcela Ha MD [facility] CPT-4: 45802 02/16/2017 ([id number]) 67491 EST. PATIENT, LEVEL III Diagnosis: Type 2 diabetes mellitus with hyperglycemia[ICD10: E11.65] Marcela Ha MD, [facility] CPT-4: 72565 02/12/2017 ([id number]) 21251 EST. PATIENT, LEVEL IV Diagnosis: Type 2 diabetes mellitus with hyperglycemia[ICD10: E11.65] Diagnosis: Muscle weakness (generalized)[ICD10: M62.81] Diagnosis: Disorientation, unspecified[ICD10: R41.0] Marcela Ha MD, [facility] CPT-4: 29437 02/05/2017 ([id number]) Patient admitted to the hospital from clinic (NO CHARGE) Diagnosis: Type 2 diabetes mellitus with hyperglycemia[ICD10: E11.65] Diagnosis: Disorientation, unspecified[ICD10: R41.0] Diagnosis: Muscle weakness (generalized)[ICD10: M62.81] Marcela Ha MD, [facility] CPT-4: 83168L 01/29/2017 ([id number]) Miscellaneous no charge Diagnosis: Cellulitis of right lower limb[ICD10: L03.115] Marcela Ha MD, [facility] CPT-4: 79845 10/13/2016 ([id number]) Miscellaneous no charge Diagnosis: Type 2 diabetes mellitus with foot ulcer[ICD10: E11.621] Diagnosis: Pain in right foot[ICD10: M79.671] Marcela Ha MD, [facility] CPT-4: 32068 10/09/2016 75008 EST. PATIENT, LEVEL II Diagnosis: Cellulitis of right lower limb[ICD10: L03.115] Marcela Ha MD, [facility] CPT-4: 24517 10/06/2016 ([id number]) 49154 EST. PATIENT, LEVEL IV Diagnosis: Low back pain[ICD10: M54.5] Diagnosis: Other deformities of toe(s) (acquired), left foot[ICD10: M20.5X2] Diagnosis: Type 2 diabetes mellitus with foot ulcer[ICD10: E11.621] Marcela Ha MD , [facility] CPT-4: 47338 07/18/2016 ([id number]) 77563 EST. PATIENT, LEVEL III Diagnosis: Type 2 diabetes mellitus with hyperglycemia[ICD10: E11.65] Marcela Ha MD, [facility] CPT-4: 95601 06/22/2016 ([id number]) 92287 EST. PATIENT, LEVEL IV Diagnosis: Type 2 diabetes mellitus with hyperglycemia[ICD10: E11.65] Diagnosis: Mixed hyperlipidemia[ICD10: E78.2] Diagnosis: Other hemoglobinopathies[ICD10: D58.2] [facility] CPT-4: 45177 05/23/2016 ([id number]) 76924 EST. PATIENT, LEVEL IV Diagnosis: Type 2 diabetes mellitus with other specified complication[ICD10: E11.69] Diagnosis: Dehydration[ICD10: E86.0] Marcela Ha MD, [facility] CPT-4: 61081 05/15/2016 ([id number]) OFFICE VISIT, NEW - LEVEL 3 Diagnosis: Allergic contact dermatitis due to plants, except food[ICD10: L23.7] Madeline Ha MD, [facility] CPT-4: 37837 01/20/2016 Plan of Care Planned Activity Notes Codes Status Date Visit Plan: Orthostasis -decrease coreg -monitor symptoms and follow up in 10 days- sooner if needed Fatigue-check labs 02/17/2019 Appointment: Marcela sOhea WPtel: [address] [place], [place] [phone] (30 min) Complex 02/17/2019 Patient Education: Patient Medication Summary Completed 02/17/2019 Appointment: Marcela Oshea WPtel: [address] [place], [place] [phone] (30 min) Complex 01/14/2019 Visit Plan: Hypertension [...] Summary Completed 01/13/2019 Appointment: Marcela Oshea WPtel: [address] [place], [place] [phone] [place] (30 min) Complex 01/10/2019 Visit Plan: Epigastric pain -start protonix daily- monitor symptoms Chest pain -work up negative done last week with Madeline-recommend appt with Dr Brennan Joint pain-check inflammation makers DM-check Hgb a1c 12/31/2018 Appointment: Marcela Oshea WPtel: [phone] [phone] [place] (15 min) Moderate 12/31/2018 Patient Education: Patient Medication Summary Completed 12/31/2018 Visit Plan: chest pain - EKG and cardiac enzymes OK - discussed with Dr. Ha - will treat for pneumonia - pt is to notify clinic if symptoms do not improve, if they worsen, or with any changes questions, or concerns. 12/26/2018 Appointment: Madeline Kennedy WPtel: [phone] [facility] [place] (30 min) Complex 12/26/2018 Patient Education: Patient Medication Summary Completed 12/26/2018 Referral: Andrew Cross Patient informed. Referral info faxed. Completed Visit Plan: cough - improved - continue with inhalers - continue with symbicort - rx for proair for PRN use when pt is feelign short of breath with activity. 11/18/2018 Appointment: Melida Ha WPtel: [phone] [facility] [place] (15 min) Moderate 11/18/2018 Patient [...] Marcela Oshea WPtel: [facility]5 [phone] (30 min) Complex 11/12/2018 Patient Education: Patient Medication Summary Completed 11/12/2018 Patient Education: Symbicort - 18-64 - eCopay Completed 11/12/2018 Care Plan: Referral Order SNOMED-CT : [id number] Pending 11/12/2018 Referral: Niko Mantilla Referral Completed 11/04/2018 Visit Plan: Pneumonia, cough - recent diagnosis of Moraxella Cattharalis - with sensitivity to levaquin - will give 2 wks of levaquin since he had improvement but no full resolution of symptoms. 10/30/2018 Appointment: Melida Ha WPtel: [facility] 30 min appointments only in this [...] Marcela Oshea WPtel: [phone] (30 min) Complex 10/24/2018 Patient Education: Patient Medication Summary Completed 10/24/2018 Care Plan: Referral Order SNOMED-CT : [id number] Pending 10/24/2018 Visit Plan: Hypotension - discussed [...] controlled. 10/23/2018 [facility]ment: [id number] (15 min) Moderate 10/23/2018 Patient Education: Patient [...] plan. 10/21/2018 App[facility]ment: [phone] [place] (30 min) Complex 10/21/2018 Patient [...] warmth, discharge. 10/17/2018 Appointment: Madeline Kennedy WPtel: [address] [place] [address] (15 min) Moderate 10/17/2018 Patient Education: Patient [...] Marcela Oshea WPtel: [facility]8 [address] (15 min) Moderate 10/14/2018 Patient Education: Patient Medication Summary Completed 10/14/2018 Care Plan: CHEST X-RAY 2VW FRONTAL&LATL LOINC : 83378-8 Pending 10/14/2018 Visit Plan: URI - Pt [...] allergy spray. 09/30/2018 Appointment: Madeline Kennedy WPtel: [facility]8 [phone] (15 min) Moderate 09/30/2018 Patient Education: Patient [...] A1C 09/09/2018 Appointment: Marcela Oshea WPtel: [phone] [phone] (15 min) Moderate 09/09/2018 Patient Education: Patient Medication Summary Completed 09/09/2018 Patient Education: Patient Medication Summary Completed 09/06/2018 Patient Education: Cholesterol Management Completed 09/06/2018 Care Plan: Comp Metabolic Pending 09/06/2018 Care Plan: Cbc With Differential Pending 09/06/2018 Care Plan: %Hba1C LOINC : 72193-0 Pending 09/06/2018 Care Plan: Tsh Pending 09/06/2018 Care Plan: Lipid Pending 09/06/2018 Appointment: Marcela Oshea WPtel: [facility]5 [phone] [place] (15 min) Moderate 08/26/2018 Appointment: Marcela Oshea WPtel: [facility]5 [phone] (15 min) Moderate 08/23/2018 Visit Plan: Hypertension [...] clinic. 07/22/2018 Appointment: [phone] (15 min) Moderate 07/22/2018 Patient Education: Patient [...] insomnia. 07/16/2018 App[facility]ment: [phone] (30 min) Complex 07/16/2018 Patient Education: Patient Medication Summary Completed 07/16/2018 Visit Plan: cough - improved - notify clinic if symptoms do not completely resolve, or with any questions or concerns. 07/01/2018 Appointment: [facility]el[phone] (15 min) Moderate 07/01/2018 Patient Education: [...] spray. 06/28/2018 Appointment: [phone] [facility] (15 min) Moderate 06/28/2018 Patient Education: Patient Medication Summary Completed 06/28/2018 Patient Education: Patient Medication Summary Completed 06/21/2018 Care Plan: Annabel RICKS [place] Pending 06/21/2018 Visit Plan: Diabetes Mellitus - [...] at home. 06/18/2018 Appointment: Melida Ha WPtel: [phone] [facility] (15 min) Moderate 06/18/2018 Patient Education: [...] swelling improves. 06/04/2018 Appointment: Melida Ha WPtel: [facility]6 [address] (15 min) Moderate 06/04/2018 Patient Education: [...] allow for greater blood glucose control. Joint iiwh-hhkzhskg-nmryhki- symptoms have improved -stop meloxicam due to upset stomach-call if symptoms return 05/13/2018 Appointment: Marcela Oshea WPtel: [facility]5 [phone] (30 min) Complex 05/13/2018 Patient Education: Patient Medication Summary Completed 05/13/2018 Visit Plan: Bilateral hip glgq-czthwdsu-mcordjj IM injection administered today for c/o continued myalgia/arthralgia. Patient to start taking Meloxicam 15mg PO daily. Advised to return to clinic if symptoms do not improve. 05/02/2018 Appointment: Marcela Oshea WPtel: [phone] (30 min) Complex 05/02/2018 Patient Education: Patient [...] readings at home. Diabetes Mellitus -check labs Tnevvnqh-ozjtumq-ebwb bite-rx for doxycycline-follow up in 2 weeks 04/29/2018 Appointment: Marcela Oshea WPtel: [phone] [phone] (15 min) Moderate 04/29/2018 Patient Education: Patient Medication Summary Completed 04/29/2018 Appointment: Melida Ha WPtel: [phone] [facility] (15 min) Moderate 04/15/2018 Appointment: Marcela Oshea WPtel: [phone] [phone] (30 min) Complex 03/21/2018 Visit Plan: Hypertension [...] cymbalta 03/13/2018 Appointment: Melida Ha WPtel: [phone] [facility] (30 min) Complex 03/13/2018 Patient Education: Patient Medication Summary Completed 03/13/2018 Visit Plan: DM-continue same medications-monitor blood sugars routinely as directed -rx for new glucometer and test strips provided Bipolar-currently depressed-patient start on vraylar-follow up in 2 weeks, sooner if needed. Patient and verbalied understanding of plan. Hypotension- stay off losartan 03/07/2018 Appointment: Marcela Oshea WPtel: [phone] [phone] (30 min) Complex 03/07/2018 Patient Education: Patient Medication Summary Completed 03/07/2018 Appointment: [facility]Ptel: [phone] (15 min) Moderate 03/04/2018 Visit Plan: Hypotension-continue [...] patient. 02/28/2018 Appointment: [facility]el[phone] [place] (30 min) Complex 02/28/2018 Patient Education: [...] not improving. 02/13/2018 Appointment: Mad[facility] Kennedy [facility]Ptel[facility] [phone] [facility] (15 min) Moderate 02/13/2018 Patient Education: Patient Medication Summary Completed 02/13/2018 Referral: Sun Glynn Patient informed. Referral info faxed. Completed Visit Plan: DM-weight loss-not checking blood sugars- patient sent for labs today HTN-low jywvj-ffjzehl-zpkcf labs Callus of foot and fissue of [...] Marcela Oshea WPtel: [phone] [place] (30 min) Complex 01/29/2018 Patient Education: Patient Medication Summary Completed 01/29/2018 Care Plan: Comp Metabolic Cancelled 01/29/2018 Care Plan: Cbc With Differential Cancelled 01/29/2018 Care Plan: %Hba1C LOINC : 71923-0 Cancelled 01/29/2018 Care Plan: Referral Order SNOMED-CT : [id number] Cancelled 01/29/2018 Visit Plan: Fatigue, malaise, joint [...] concerns. 08/27/2017 Appointment: Mad[facility] Kennedy [facility]Ptel[phone] [place] (15 min) Moderate 08/27/2017 Patient [...] - 08/16/2017 Appointment: Melida Ha WPtel: [phone] [facility] (30 min) Complex 08/16/2017 Patient Education: Patient Medication Summary Completed 08/16/2017 Patient Education: Obesity Completed 08/16/2017 Appointment: Madeline Kennedy WPtel: [phone] [phone] (30 min) Complex 08/07/2017 Visit Plan: Shingles [...] contagious. 07/26/2017 Appointment: Madeline Kennedy WPtel: [phone] [facility] [place] (15 min) Moderate 07/26/2017 Patient Education: Patient Medication Summary Completed 07/26/2017 Visit Plan: Cellulitis right foot-cultured today in the office-home health to reapply wound vac--appt with wound care on to evaluate for debridement- 07/03/2017 Appointment: Marcela Oshea WPtel: [phone] [phone] [place] (30 min) Complex 07/03/2017 Patient Education: Patient Medication Summary Completed 07/03/2017 Visit Plan: Abrasion left arm - Pt was instructed to keep the wound clean, wash with antibacterial soap, use triple antibiotic ointment, call if redness, pustular drainage, or any other acute concerns. 06/29/2017 Appointment: Marcela Oshea WPtel: [facility]2 [address] (15 min) Moderate 06/29/2017 Patient Education: [...] of plan. 06/18/2017 Appointment: Marcela Oshea WPtel: [facility]9 [place] [phone] (15 min) Moderate 06/18/2017 Patient Education: Patient [...] diet-start prilosec 06/07/2017 Appointment: Marcela Oshea WPtel: [phone] (10 min) Simple 06/07/2017 Patient Education: Patient [...] bite-continue doxycycline 05/17/2017 Appointment: Marcela Oshea WPtel: [facility]3 [phone] (30 min) Complex 05/17/2017 Patient Education: Patient [...] [facility] Hospital. 05/04/2017 Appointment: Marcela Oshea WPtel: [address] [place], [place] [phone] (30 min) Complex 05/04/2017 Patient Education: Patient [...] Marcela Oshea WPtel: [facility]2 [phone] (15 min) Moderate 03/15/2017 Patient Education: Patient Medication Summary Completed 03/15/2017 Appointment: Marcela Osheatel: [address] [place], [place] [phone] (30 min) Complex 03/12/2017 Visit Plan: Feng [...] discussed 02/16/2017 Appointment: Marcela Oshea WPtel: [phone] [phone] (15 min) Moderate 02/16/2017 Patient Education: Patient [...] Marcela Oshea WPtel: [facility]8 [phone] (30 min) Complex 02/12/2017 Patient Education: Patient Medication Summary Completed 02/12/2017 Appointment: Marcela Oshea WPtel: [phone] [phone] (30 min) Complex 02/06/2017 Visit Plan: Diabetes [...] will consider 02/05/2017 Appointment: Marcela Oshea WPtel: [facility]5 [phone] [place] (30 min) Complex 02/05/2017 Patient Education: Patient Medication Summary Completed 02/05/2017 Appointment: Marcela Oshea WPtel: [address] [place], [place] [phone] [place] (30 min) Complex 01/30/2017 Visit Plan: Acute confusion-uncontrolled diabetes- chronically noncompliant with treatment and stopped his insulin several months ago-r/o stroke vs DKA-Dr Ha in to evaluate patient-plan to admit for further work up and treatment-patient's called and she transported him to the hospital 01/29/2017 Appointment: Marcela Oshea WPtel: [facility]5 [phone] [place] (30 min) Complex 01/29/2017 Patient Education: Patient Medication Summary Completed 01/29/2017 Patient Education: Obesity Completed 01/29/2017 Visit Plan: Right foot pain-MRI shows foreign body-appt with Dr Grewal for evaluation on Sunday. 10/13/2016 Appointment: Marcela Oshea WPtel: [facility]5 [phone] [place] (15 min) Moderate 10/13/2016 Patient Education: Patient Medication Summary Completed 10/13/2016 Appointment: Marcela Oshea WPtel: [facility]5 [phone] [place] (30 min) Complex 10/12/2016 Visit Plan: Right foot sfuw-flzsoahz-oxhcm washer dropped on foot-xray negative but pain continues to increase-recommend MRI of foot for further evaluation-refer to wound care for lesions on right foot, patient has diabetes and history of osteomyelitis-culture obtained today-continue oral abx- follow up in the office on , sooner if needed 10/09/2016 Visit Plan: Right foot rwnh-bgcamjxx-mypxp washer dropped on foot-xray negative but pain continues to increase-recommend MRI of foot for further evaluation-refer to wound care for lesions on right foot, patient has diabetes and history of osteomyelitis-culture obtained today-continue oral abx- follow up in the office on , sooner if needed 10/09/2016 Visit Plan: Right foot bwik-ikgeprot-facgu washer dropped on foot-xray negative but pain continues to increase-recommend MRI of foot for further evaluation-refer to wound care for lesions on right foot, patient has diabetes and history of osteomyelitis-culture obtained today-continue oral abx- follow up in the office on , sooner if needed 10/09/2016 Appointment: Marcela Oshea WPtel: [facility]7 [address] (30 min) Complex 10/09/2016 Patient Education: Patient Medication Summary Completed 10/09/2016 Visit Plan: Cellulitis - continue with oral antibiotics as previously directed, return to clinic as previously directed, call for acute change in symptoms, worsening redness, warmth, discharge. 10/06/2016 Appointment: Marcela Oshea WPtel: [address] [place], [place] [phone] (10 min) Simple 10/06/2016 Patient Education: Patient Medication Summary Completed 10/06/2016 Appointment: Marcela Oshea WPtel: [address] [place], [place] [phone] (30 min) Complex 08/24/2016 Referral: Sun Glynn Referral Completed 07/21/2016 Visit Plan: Low back pain- history of spinal fusion- patient for xray lumbar spine-RX sent to [facility] pharmacy and instructed on use-topical voltaren samples provided and instructed on use. Ok to use tylenol as needed as well. The patient is to call the office if the pain is worsening or does not improve. Pressure ulcer left 4th toe-refer to Dr Glynn for evaluation 07/18/2016 Appointment: Marcela Oshea WPtel: [facility]7 [phone] (30 min) Complex 07/18/2016 Patient Education: Patient Medication Summary Completed 07/18/2016 Patient Education: Obesity Completed 07/18/2016 Care Plan: Referral Order SNOMED-CT : [id number] Cancelled 07/18/2016 Visit Plan: Diabetes Mellitus - [...] WPtel: [phone] [phone] (30 min) Complex 06/22/2016 Patient Education: Patient [...] WPtel: [phone] [phone] (30 min) Complex 05/23/2016 Patient Education: Patient [...] of plan. 05/15/2016 Appointment: Marcela Oshea WPtel: [facility]5 [phone] (15 min) Moderate 05/15/2016 Patient Education: Patient [...] voltaren gel ulcer left 4th toe-refer to ambulatory technologist . Low back pain- history of spinal fusion-patient for xray lumbar spine-RX sent to [facility] pharmacy and instructed on use-topical [...] for fracture from injury . Right foot bumg-tqrbtzmn-xmhfx washer dropped on foot-xray negative but pain [...] for fracture from injury . Right foot vzry-qxhhejcf-mrvmj washer dropped on foot-xray negative but pain [...] for fracture from injury . Right foot yogs-zaulqvte-gmyow washer dropped on foot-xray negative but pain [...] if needed Fatigue-check labs . Bilateral hip wwor-ouwlhdbo-ggiyewq IM injection administered today for c/o continued myalgia/arthralgia. Patient to start taking Meloxicam 15mg PO daily. Advised to return to clinic if symptoms do not improve. . DM-weight loss-not checking blood sugars-patient sent for labs today HTN-low chloq-tilzblc-uwbmz labs Callus of foot and fissue of [...] readings are starting to become less controlled. Msnjfhvtz-fabvgykb-vluoeblc to monitor Generalized weakness-refer for PT-patient refuses [...] allow for greater blood glucose control. Joint yvhi-kplzokea-wjadqeb-symptoms have improved -stop meloxicam due to upset [...] readings at home. Diabetes Mellitus -check labs Thzsiccm-zffmddn-vsfr bite-rx for doxycycline-follow up in 2 weeks [...]
--- OUTSIDE RECORDS SUMMARY | 2019-03-10 10:04 | XMS REPORT | CCD ---
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 Name Role Phone PP Unavailable CCM Unavailable Summary Purpose Interface Exchange Insurance Providers Payer name Policy type / Coverage type Covered libertarian ID Effective Begin Date Effective End Date [employer] Commercial Insurance [id number] 2018 Unknown Family history Father Diagnosis Age At Onset Hyperlipidemia Unknown Heart Attack Unknown Mother Diagnosis Age At Onset Hypertension Unknown Social History Social History Element Codes Description Effective Dates Marital status Unknown Mignon 01/20/2016 Number of children Unknown 4 01/20/2016 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/[address]: 934519928 Never smoker 01/20/[address]: 701636039 Never drinks alcohol 01/20/2016 Allergies, Adverse Reactions, Alerts Substance Reaction Codes Entered Date Inactivated Date Status * NO KNOWN DRUG ALLERGIES Unknown 05/23/2016 No Inactive Date Active Past Medical History Illness Codes Condition Status Onset Date Resolved Date 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 ICD-10: I95.2 Active 02/17/2019 Unknown Other fatigue ICD-9: 780.79 ICD-10: R53.83 Active 08/27/2017 Unknown 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 [...] R53.83 08/27/2017 Active 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 [...] Instructions Cymbalta 60 mg capsule,delayed release RxNorm: 271104 1 Capsule(s) PO QAM 02/19/2019 09/16/2019 Active will call for refill- dose change Coreg 6.25 mg tablet RxNorm: 559621 1 Tablet(s) daily 201808/17/2019 Active clonazepam 1 mg tablet RxNorm: 551541 2 Tablet(s) PO HS 201806/14/2019 Active Tresiba FlexTouch U-200 insulin 200 unit/mL (3 mL) subcutaneous pen RxNorm: 5553117 50 Unit(s) SQ daily 01/08/2019 05/07/2019 Active please give him 30 day supply Protonix 40 mg tablet,delayed release RxNorm: 192008 1 Tablet(s) PO daily 12/31/2018 01/29/2019 Inactive Tresiba FlexTouch U-200 insulin 200 unit/mL (3 mL) subcutaneous pen RxNorm: 0809613 50 Unit(s) SQ daily 12/31/2018 01/07/2019 Inactive please give him 30 day supply Augmentin 500 mg-125 mg tablet RxNorm: 414263 1 Tablet(s) PO TID 12/26/2018 01/04/2019 Inactive Augmentin 500 mg-125 mg tablet RxNorm: 049010 1 Tablet(s) PO TID 12/26/2018 12/25/2018 Inactive ProAir HFA 90 mcg/actuation aerosol inhaler RxNorm: 6284868 2 Puff(s) INH QID as needed 11/18/2018 No Stop Date Active Lyrica 50 mg capsule RxNorm: 534486 Capsule(s) PO daily 201802/08/2019 Inactive Cymbalta 30 mg capsule,delayed release RxNorm: 208497 1 Capsule(s) PO QAM 11/13/2018 02/18/2019 Inactive Lyrica 50 mg capsule RxNorm: 649607 Capsule(s) PO daily 201811/12/2018 Inactive Symbicort 160 mcg-4.5 mcg/actuation HFA aerosol inhaler RxNorm: 7324309 2 Puff(s) INH BID 11/12/2018 12/11/2018 Inactive albuterol sulfate 2.5 mg/3 mL (0.083 %) solution for nebulization RxNorm: 256746 3 Milliliter(s) INH UD 11/07/2018 No Stop Date Active azithromycin 500 mg tablet RxNorm: 790210 500mg on day 1 then 250 mg daily x 4 more day Tablet(s) PO 11/07/20182018 Inactive 500mg on day 1 and then 250mg daily 2-4 cefdinir 300 mg capsule RxNorm: 972529 1 Capsule(s) PO BID 01/201911/06/2018 Inactive azithromycin 500 mg tablet RxNorm: 631214 500mg on day 1 then 250 mg daily x 4 more day Tablet(s) PO 11/07/20182018 Inactive 500mg on day 1 and then 250mg daily 2-4 cefdinir 300 mg capsule RxNorm: 520155 1 Capsule(s) PO BID 01/201911/13/2018 Inactive Levaquin 500 mg tablet RxNorm: 859457 1 Tablet(s) PO daily TAKE ONE TABLET BY MOUTH DAILY UNTIL GONE 10/31/20182018 Inactive Levaquin 500 mg tablet RxNorm: 478548 1 Tablet(s) PO daily 11/12/2018 Inactive valsartan 80 mg tablet RxNorm: 290605 1/2 Tablet(s) PO daily 04/20/2019 Active doxycycline hyclate 100 mg tablet RxNorm: 0975474 1 Tablet(s) PO BID 10/21/2018 10/27/2018 Inactive ketorolac 60 mg/2 mL intramuscular solution RxNorm: 7451292 Milliliter(s) IM 10/21/2018 10/21/2018 Inactive Levaquin 500 mg tablet RxNorm: 541883 1 Tablet(s) PO daily 10/31/2018 Inactive Tessalon Perles 100 mg capsule RxNorm: 564881 1-2 Capsule(s) PO TID PRN 10/14/2018 No Stop Date Active albuterol sulfate 2.5 mg/3 mL (0.083 %) solution for nebulization RxNorm: 052648 3 Milliliter(s) INH UD 10/14/201812/2018 Inactive Levaquin 500 mg tablet RxNorm: 467156 1 Tablet(s) PO daily 08/201810/16/2018 Inactive albuterol sulfate 2.5 mg/3 mL (0.083 %) solution for nebulization RxNorm: 176292 3 Milliliter(s) INH UD 09/30/201807/2018 Inactive Kenalog 40 mg/mL suspension for injection RxNorm: 6043494 1.5 Milliliter(s) Inj 09/30/2018 09/30/2018 Inactive Coreg 6.25 mg tablet RxNorm: 363656 TAKE ONE TABLET BY MOUTH TWICE A DAY 09/30/2018 02/18/2019 Inactive Keflex 500 mg capsule RxNorm: 755284 1 Capsule(s) PO TID 201710/03/2018 Inactive prednisone 20 mg tablet RxNorm: 403950 2 Tablet(s) PO daily 09/29/2018 Inactive Kenalog 40 mg/mL suspension for injection RxNorm: 1662900 Milliliter(s) Inj 09/11/2018 09/11/2018 Inactive Zyrtec 10 mg tablet RxNorm: 3761956 1 Tablet(s) PO daily 09/0910/08/2018 Inactive Keflex 500 mg capsule RxNorm: 208791 1 Capsule(s) PO TID 201709/15/2018 Inactive Tresiba FlexTouch U-200 insulin 200 unit/mL (3 mL) subcutaneous pen RxNorm: 3732931 50 Unit(s) SQ daily 08/30/2018 08/29/2018 Inactive please give him 30 day supply Tresiba FlexTouch U-200 insulin 200 unit/mL (3 mL) subcutaneous pen RxNorm: 0275213 50 Unit(s) SQ daily 08/30/2018 09/28/2018 Inactive please give him 30 day supply Novolog Flexpen U-100 Insulin aspart 100 unit/mL subcutaneous RxNorm: 9650407 8 Unit(s) SQ AC 08/13/2018 No Stop Date Active Novolog Flexpen U-100 Insulin aspart 100 unit/mL subcutaneous RxNorm: 7074433 8 Unit(s) SQ AC 07/22/20182017 Inactive this is an update on his medication Novolog Flexpen U-100 Insulin aspart 100 unit/mL subcutaneous RxNorm: 9088768 12 Unit(s) SQ AC 07/05/20182017 Inactive this is an update on his medication Toujeo SoloStar U-300 Insulin 300 unit/mL (1.5 mL) subcutaneous pen RxNorm: 1839913 INJECT 50 UNITS UNDER THE SKIN DAILY 07/01/2018 08/29/2018 Inactive Mucinex 600 mg tablet, extended release RxNorm: 299745 1 Tablet(s) PO BID 06/28/2018 07/04/2018 Inactive Zofran 4 mg tablet RxNorm: 574308 1 Tablet(s) PO TID as needed nausea 06/28/2018 07/02/2018 Inactive Kenalog 40 mg/mL suspension for injection RxNorm: 5676346 Milliliter(s) Inj 06/28/2018 06/28/2018 Inactive Flonase Allergy Relief 50 mcg/actuation nasal spray, suspension RxNorm: 6073465 1 [place] NASAL BID 06/28/20182017 Inactive Lyrica 50 mg capsule RxNorm: 633288 Capsule(s) PO daily 201707/06/2018 Inactive Novolog Flexpen U-100 Insulin aspart 100 unit/mL subcutaneous RxNorm: 1807626 10 Unit(s) SQ AC 06/18/20182017 Inactive this is an update on his medication Lasix 20 mg tablet RxNorm: 554888 1 Tablet(s) PO BIW 201707/02/2018 Inactive atorvastatin 80 mg tablet RxNorm: 301549 1 Tablet(s) PO QHS 04/201812/06/2018 Inactive clonazepam 1 mg tablet RxNorm: 092058 2 Tablet(s) PO HS as needed 06/10/2018 06/08/2018 Inactive clonazepam 1 mg tablet RxNorm: 256902 2 Tablet(s) PO HS 201702/17/2019 Inactive Lyrica 50 mg capsule RxNorm: 894688 Capsule(s) PO daily 201707/08/2018 Inactive Lasix 20 mg tablet RxNorm: 624674 1 Tablet(s) PO TIW 201706/11/2018 Inactive Toujeo SoloStar U-300 Insulin 300 unit/mL (1.5 mL) subcutaneous pen RxNorm: 0922237 50 Unit(s) SQ daily 05/07/2018 06/30/2018 Inactive meloxicam 15 mg tablet RxNorm: 057074 15 Milligram(s) PO daily 05/02/2018 05/12/2018 Inactive ketorolac 30 mg/mL injection solution RxNorm: 550201 2 Milliliter(s) Inj 05/02/2018 05/02/2018 Inactive Toujeo SoloStar U-300 Insulin 300 unit/mL (1.5 mL) subcutaneous pen RxNorm: 8991206 45 Unit(s) daily 04/29/2018 Inactive clonazepam 1 mg tablet RxNorm: 288393 1 Tablet(s) PO Q8 as needed 04/29/2018 06/09/2018 Inactive doxycycline hyclate 100 mg tablet RxNorm: 5568073 1 Tablet(s) PO BID 04/29/2018 05/12/2018 Inactive Cymbalta 30 mg capsule,delayed release RxNorm: 814143 1 Capsule(s) PO QAM 03/13/2018 10/08/2018 Inactive Lexapro 10 mg tablet RxNorm: 038299 1 Tablet(s) PO QPM 201703/03/2018 Inactive Toujeo SoloStar U-300 Insulin 300 unit/mL (1.5 mL) subcutaneous pen RxNorm: 4855240 20 Unit(s) daily 02/28/2018 Inactive Protonix 40 mg tablet,delayed release RxNorm: 729688 1 Tablet(s) PO daily 01/29/2018 06/09/2018 Inactive clonazepam 1 mg tablet RxNorm: 009040 1 Tablet(s) PO Q8 as needed 12/12/2017 03/10/2018 Inactive Tamiflu 75 mg capsule RxNorm: 188398 1 Capsule(s) PO BID 201712/03/2017 Inactive doxycycline hyclate 100 mg capsule RxNorm: 9751339 1 Capsule(s) PO BID 09/07/2017 09/20/2017 Inactive doxycycline hyclate 100 mg capsule RxNorm: 3561077 1 Capsule(s) PO BID 08/27/2017 09/06/2017 Inactive prednisone 20 mg tablet RxNorm: 701635 2 Tablet(s) PO daily 08/31/2017 Inactive clopidogrel 75 mg tablet RxNorm: 183921 1 Tablet(s) PO daily 06/09/2018 Inactive atorvastatin 40 mg tablet RxNorm: 927364 1 Tablet(s) PO QHS 02/27/2018 Inactive losartan 25 mg tablet RxNorm: 594479 TAKE ONE TABLET BY MOUTH DAILY 08/22/2017 06/09/2018 Inactive Toujeo SoloStar 300 unit/mL (1.5 mL) subcutaneous insulin pen RxNorm: 4611671 45 Unit(s) daily 08/17/2017 08/20/2017 Inactive mupirocin 2 % topical ointment RxNorm: 124607 1 Application TOP TID to the lesions on chest 08/16/2017 08/25/2017 Inactive Toujeo SoloStar 300 unit/mL (1.5 mL) subcutaneous insulin pen RxNorm: 6532530 40 Unit(s) daily 08/16/2017 08/16/2017 Inactive valacyclovir 1 gram tablet RxNorm: 573994 1 Tablet(s) PO TID 08/01/2017 Inactive clonazepam 1 mg tablet RxNorm: 812491 1 Tablet(s) PO Q8 as needed 07/03/2017 09/30/2017 Inactive Levaquin 500 mg tablet RxNorm: 168594 1 Tablet(s) PO daily 06/25/2017 Inactive Levaquin 500 mg tablet RxNorm: 010065 1 Tablet(s) PO daily 06/21/2017 Inactive losartan 25 mg tablet RxNorm: 154204 1 Tablet(s) PO daily 201608/16/2017 Inactive nystatin 100,000 unit/mL oral suspension RxNorm: 230881 5 Milliliter(s) PO QID Swish et swallow 06/18/2017 06/17/2017 Inactive nystatin 100,000 unit/mL oral suspension RxNorm: 039647 5 Milliliter(s) PO QID Swish et swallow 06/18/2017 06/27/2017 Inactive Cipro 500 mg tablet RxNorm: 060179 1 Tablet(s) PO BID 201606/18/2017 Inactive Cipro 500 mg tablet RxNorm: 885078 1 Tablet(s) PO BID 201606/11/2017 Inactive Toujeo SoloStar 300 unit/mL (1.5 mL) subcutaneous insulin pen RxNorm: 5215207 INJECT 10 UNITS UNDER THE SKIN DAILY 06/12/2017 08/15/2017 Inactive Keflex 500 mg capsule RxNorm: 114527 1 Capsule(s) PO TID 201606/13/2017 Inactive doxycycline hyclate 100 mg capsule RxNorm: 3416708 1 Capsule(s) PO BID 05/17/2017 05/21/2017 Inactive doxycycline hyclate 100 mg capsule RxNorm: 2264500 1 Capsule(s) PO BID 05/11/2017 05/16/2017 Inactive losartan 25 mg tablet RxNorm: 608011 1 Tablet(s) PO daily 201606/17/2017 Inactive atorvastatin 40 mg tablet RxNorm: 423713 1 Tablet(s) PO daily 03/01/2017 08/23/2017 Inactive clopidogrel 75 mg tablet RxNorm: 472996 1 Tablet(s) PO daily 08/23/2017 Inactive Flonase Allergy Relief 50 mcg/actuation nasal spray, suspension RxNorm: 7297203 2 [place] NASAL daily 02/16/20172016 Inactive Augmentin 875 mg-125 mg tablet RxNorm: 398022 1 Tablet(s) PO BID 02/16/2017 02/22/2017 Inactive GET PROBIOTIC TO TAKE WHILE ON ABX Tamiflu 75 mg capsule RxNorm: 374775 1 Capsule(s) PO BID 201602/20/2017 Inactive ceftriaxone 500 mg solution for injection RxNorm: 0478447 1 Milliliter(s) Inj 02/16/2017 02/16/2017 Inactive Kenalog 40 mg/mL suspension for injection RxNorm: 9864970 1 Milliliter(s) Inj 02/16/2017 02/16/2017 Inactive Toujeo SoloStar 300 unit/mL (1.5 mL) subcutaneous insulin pen RxNorm: 9461481 25 Unit(s) SQ QAM 02/12/2017 06/10/2017 Inactive Toujeo SoloStar 300 unit/mL (1.5 mL) subcutaneous insulin pen RxNorm: 8472226 10 Unit(s) SQ QAM 02/05/2017 02/11/2017 Inactive lisinopril 10 mg tablet RxNorm: 525131 1 Tablet(s) PO daily 02/28/2017 Inactive atorvastatin 40 mg tablet RxNorm: 777424 1 Tablet(s) PO daily 02/01/2017 02/28/2017 Inactive doxycycline hyclate 100 mg capsule RxNorm: 4010371 1 Capsule(s) PO BID 02/01/2017 02/10/2017 Inactive clonazepam 1 mg tablet RxNorm: 023317 1 Tablet(s) PO Q8 as needed 10/09/2016 01/05/2017 Inactive ceftriaxone 1 gram solution for injection RxNorm: 7718189 Inj 10/06/2016 10/06/2016 Inactive cyclobenzaprine 10 mg tablet RxNorm: 138680 1/2-1 Tablet(s) PO TID PRN 07/18/2016 01/28/2017 Inactive clonazepam 1 mg tablet RxNorm: 278986 1 Tablet(s) PO Q8 as needed 05/31/2016 05/29/2016 Inactive clonazepam 1 mg tablet RxNorm: 571606 1 Tablet(s) PO Q8 as needed 05/31/2016 08/28/2016 Inactive Toujeo SoloStar 300 unit/mL (1.5 mL) subcutaneous insulin pen RxNorm: 8253964 10 Unit(s) SQ daily 05/23/2016 01/28/2017 Inactive Crestor 10 mg tablet RxNorm: 819128 1 Tablet(s) PO QHS 201501/28/2017 Inactive Crestor 10 mg tablet RxNorm: 621515 1 Tablet(s) PO QHS 201505/18/2016 Inactive clonazepam 1 mg tablet RxNorm: 736380 1 Tablet(s) PO Q8 as needed 04/25/2016 05/30/2016 Inactive prednisone 20 mg tablet RxNorm: 099498 3 Tablet(s) PO daily 06/201602/10/2016 Inactive prednisone 20 mg tablet RxNorm: 430398 3 Tablet(s) PO daily 06/201605/14/2016 Inactive Kenalog 40 mg/mL suspension for injection RxNorm: 8692929 Milliliter(s) Inj 01/20/2016 01/20/2016 Inactive aspirin 81 mg tablet,delayed release RxNorm: 912919 1 Tablet(s) PO daily No Start Date Active Brilinta 90 mg tablet RxNorm: 4635716 1 Tablet(s) PO BID No Start Date Active acetaminophen 500 mg tablet RxNorm: 682645 1-2 Tablet(s) PO as needed No Start Date Active clopidogrel 75 mg tablet RxNorm: 317699 1 Tablet(s) PO daily No Start Date 02/28/2017 Inactive Novolog Flexpen U-100 Insulin aspart 100 unit/mL subcutaneous RxNorm: 5776217 5 units with breakfast lunch and 10 supper Unit(s) SQ No Start Date 06/17/2018 Inactive clonazepam 1 mg tablet RxNorm: 749220 1 Tablet(s) PO QHS No Start Date 04/24/2016 Inactive Coreg 6.25 mg tablet RxNorm: 796153 1 Tablet(s) PO BID No Start Date 09/29/2018 Inactive acyclovir 400 mg tablet RxNorm: 891483 2 Tablet(s) PO 5x daily No Start Date 02/28/2017 Inactive Lyrica 50 mg capsule RxNorm: 399572 Capsule(s) PO BID No Start Date 06/09/2018 Inactive Vraylar 3 mg capsule RxNorm: 9067659 1 Capsule(s) PO daily No Start Date 03/12/2018 Inactive valsartan 80 mg tablet RxNorm: 610003 1 Tablet(s) PO daily No Start Date 10/22/2018 Inactive Medication Administered Medication Codes Instructions Start Date Status ketorolac 60 mg/2 mL intramuscular solution RxNorm: 5940025 Milliliter 10/21/2018 No longer Active Kenalog 40 mg/mL suspension for injection RxNorm: 4979897 1.5Milliliter 09/30/2018 No longer Active Kenalog 40 mg/mL suspension for injection RxNorm: 7491230 Milliliter 09/11/2018 No longer Active Kenalog 40 mg/mL suspension for injection RxNorm: 3324666 Milliliter 06/28/2018 No longer Active ketorolac 30 mg/mL injection solution RxNorm: 260285 2Milliliter 05/02/2018 No longer Active ceftriaxone 500 mg solution for injection RxNorm: 6964405 1Milliliter 02/16/2017 No longer Active Kenalog 40 mg/mL suspension for injection RxNorm: 3527393 1Milliliter 02/16/2017 No longer Active ceftriaxone 1 gram solution for injection RxNorm: 0465390 10/06/2016 No longer Active Kenalog 40 mg/mL suspension for injection RxNorm: 4228766 Milliliter 01/20/2016 No longer Active Immunizations Vaccine Codes Date Status Influenza CVX: 141 07/22/2018 completed Influenza CVX: 141 08/16/2017 completed Assessments Condition Codes Effective Dates Other fatigue ICD-10: R53.83 ICD-9: 780.79 02/17/2019 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-10: I95.2 ICD-9: 458.8 02/17/2019 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-10: I25.10 [...] Item Item Code Result Date Culture Sputum 676390 LOWER RESPIRATORY TRACT CULTURE SEE NOTES 11/14/2018 Culture Sputum 345480 LOWER RESPIRATORY TRACT CULTURE SEE NOTES 10/16/2018 LIPID GRP [id number] CHOLESTEROL TNP:Duplicate Order 09/10/2018 LIPID GRP [id number] Triglyceride TNP:Duplicate Order 2017 LIPID GRP HDL CHOLESTEROL TNP:Duplicate Order 2017 LIPID GRP 3985768 Chol/HDL Ratio TNP:Duplicate Order 2017 LIPID GRP 1341224 LDL Cholesterol TNP:Duplicate Order 2017 A1C HPLC 4838720 Hgb A1c 89578-0 TNP:Duplicate Order 2017 C Diff An [id number] GDH TNP:Lab Request 06/22/2018 C Diff An [id number] Toxin A/B TNP:Lab Request 06/22/2018 C Diff An [id number] C Diff Analyzer TNP:Lab Request 2017 C Diff An [id number] IC OK? TNP:Lab Request 06/22/2018 CBC 3242384 WBC 6.4 10e9/L 05/02/2018 CBC 9295197 RBC 5.60 10e12/L 05/02/2018 CBC 1500664 HEMOGLOBIN 17.0 g/dL 05/02/2018 CBC 4140552 HEMATOCRIT 48.0 % 05/02/2018 CBC 0123515 MCV 85.7 fL 05/02/2018 CBC 0159123 MCH 30.4 pg 05/02/2018 CBC 6727666 MCHC 35.4 g/dL 05/02/2018 CBC 8898813 PLATELET COUNT 166 10e9/L 05/02/2018 CBC 5934101 Mean Plt Volume 11.6 fL 05/02/2018 CBC 3954412 Neut Auto 48.6 % 05/02/2018 CBC 4302601 Lymph Auto 41.7 % 05/02/2018 CBC 4644551 [place] Auto 8.1 % 05/02/2018 CBC 5272980 RDW 13.1 % 05/02/2018 CBC 3135244 Eos Auto 1.1 % 05/02/2018 CBC 9407470 Baso Auto 0.5 % 05/02/2018 CBC 1311481 Neutrophil Abs 3.11 10e9/L 05/02/2018 CBC 7990036 Lymphocyte Abs 2.67 10e9/L 05/02/2018 CBC 1531103 Monocyte Abs 0.52 10e9/L 05/02/2018 CBC 5549881 Eosinophil Abs 0.07 10e9/L 05/02/2018 CBC 3768907 RDW-SD 40.0 fL 05/02/2018 CBC 0074167 Basophil Abs 0.03 10e9/L 05/02/2018 CHEM 14 5414763 AST 17 U/L 05/02/2018 CHEM 14 7357959 ALT 17 U/L 05/02/2018 CHEM 14 6758491 BUN 17 mg/dL 05/02/2018 CHEM 14 8847656 ALBUMIN 4.0 g/dL 05/02/2018 CHEM 14 1338552 CHLORIDE 97 mmol/L 05/02/2018 CHEM 14 8609392 Bili Total 0.9 mg/dL 05/02/2018 CHEM 14 6461852 ALK PHOS 67 U/L 05/02/2018 CHEM 14 9046117 SODIUM 135 mmol/L 05/02/2018 CHEM 14 1329870 CREATININE 1.18 mg/dL 05/02/2018 CHEM 14 3796423 CALCIUM 9.4 mg/dL 05/02/2018 CHEM 14 7874615 POTASSIUM 4.4 mmol/L 05/02/2018 CHEM 14 8651184 TOTAL PROTEIN 6.9 g/dL 05/02/2018 CHEM 14 1367197 GLUCOSE 316 mg/dL 05/02/2018 CHEM 14 3486939 Bicarbonate 29 mmol/L 05/02/2018 CHEM 14 6919443 AGAP 9 mmol/L 05/02/2018 MEAN GLUC 4283569 Calc Mean Gluc 283 mg/dL 05/02/2018 A1C HPLC 1857857 Hgb A1c 20708-4 11.5 % 05/02/2018 GFR CALC 5874957 GFR Non Afr Amr >60 mL/min 05/02/2018 GFR CALC 9770076 GFR Afr Amr >60 mL/min 05/02/2018 [facility] Gold [id number] [facility] Gold Complete 02/28/2018 GFR CALC 1015402 GFR Non Afr Amr >60 mL/min 02/28/2018 GFR CALC 7853659 GFR Afr Amr >60 mL/min 02/28/2018 UA W/CII 1575651 UA Urine Appear Normal 02/28/2018 UA W/CII 7794664 UA Protein 1+ 02/28/2018 UA W/CII 1227979 UA Hemoglobin Negative 02/28/2018 UA W/CII 6058910 UA Glucose 4+ 02/28/2018 UA W/CII 8451777 UA Ketones Trace 02/28/2018 UA W/CII 0943112 UA pH 5.5 02/28/2018 UA W/CII 0415319 U Spec [place] 1.015 02/28/2018 UA W/CII 3458217 UA Bilirubin Negative 02/28/2018 UA W/CII 7177597 UA Nitrite NEG 02/28/2018 UA W/CII 1786881 UA Leuk Esteras Negative 02/28/2018 MICR 2519747 UA WBC/hpf 1 02/28/2018 MICR 4138099 UA RBC hpf 2 02/28/2018 MICR 2919960 UA WBC auto 3.8 /uL 02/28/2018 MICR 5884724 UA RBC auto 12.2 /uL 02/28/2018 MICR 8333391 UA SQ EPI auto 2.3 /uL 02/28/2018 MICR 4995447 UA H Cast auto 0.10 /uL 02/28/2018 CBC 3888233 WBC 6.4 10e9/L 02/28/2018 CBC 0008121 RBC 5.51 10e12/L 02/28/2018 CBC 2669136 HEMOGLOBIN 16.7 g/dL 02/28/2018 CBC 4086012 HEMATOCRIT 46.9 % 02/28/2018 CBC 4098995 MCV 85.1 fL 02/28/2018 CBC 0218366 MCH 30.3 pg 02/28/2018 CBC 3283585 MCHC 35.6 g/dL 02/28/2018 CBC 7350424 PLATELET COUNT 173 10e9/L 02/28/2018 CBC 2173252 Mean Plt Volume 11.6 fL 02/28/2018 CBC 1858177 Neut Auto 51.8 % 02/28/2018 CBC 8544061 Lymph Auto 39.9 % 02/28/2018 CBC 1157789 [place] Auto 7.3 % 02/28/2018 CBC 5394659 RDW 13.3 % 02/28/2018 CBC 4306912 Eos Auto 0.8 % 02/28/2018 CBC 2701708 Baso Auto 0.2 % 02/28/2018 CBC 7330604 Neutrophil Abs 3.32 10e9/L 02/28/2018 CBC 1325465 Lymphocyte Abs 2.55 10e9/L 02/28/2018 CBC 5817315 Monocyte Abs 0.47 10e9/L 02/28/2018 CBC 4392354 Eosinophil Abs 0.05 10e9/L 02/28/2018 CBC 5664206 RDW-SD 40.8 fL 02/28/2018 CBC 7596920 Basophil Abs 0.01 10e9/L 02/28/2018 CHEM 14 2611056 AST 17 U/L 02/28/2018 CHEM 14 6283668 ALT 17 U/L 02/28/2018 CHEM 14 6842348 BUN 20 mg/dL 02/28/2018 CHEM 14 8560989 ALBUMIN 4.1 g/dL 02/28/2018 CHEM 14 3614693 CHLORIDE 97 mmol/L 02/28/2018 CHEM 14 4164972 Bili Total 1.3 mg/dL 02/28/2018 CHEM 14 3351032 ALK PHOS 78 U/L 02/28/2018 CHEM 14 5865196 SODIUM 135 mmol/L 02/28/2018 CHEM 14 7180513 CREATININE 1.09 mg/dL 02/28/2018 CHEM 14 5155643 CALCIUM 9.6 mg/dL 02/28/2018 CHEM 14 8202346 POTASSIUM 3.8 mmol/L 02/28/2018 CHEM 14 8463934 TOTAL PROTEIN 7.3 g/dL 02/28/2018 CHEM 14 2362300 GLUCOSE 349 mg/dL 02/28/2018 CHEM 14 0960673 Bicarbonate 29 mmol/L 02/28/2018 CHEM 14 9733161 AGAP 9 mmol/L 02/28/2018 Holiday Spotted Fever Igg/Igm 469001 FEI MT SPOTTED FEVER IGM EIA . 09/05/2017 Holiday Spotted Fever Igg/Igm 184194 RMSF, IGM 0.17 index 09/05/2017 Holiday Spotted Fever Igg/Igm 163219 FEI MT SPOTTED FEVER IGG EIA FLEX . 09/05/2017 Holiday Spotted Fever Igg/Igm 112315 RMSF, IGG SCREEN-FLEX Positive 09/05/2017 Fei Mtn Spot'D Fev Igg 099974 RMSF, IGG -TITER IFA <1:64 11/2016 Ehrlichia Chaffeensis Antibody Igm 968738 EHRLICHIA CHAFFEENSIS IGM < 1:16 09/03/2017 Ehrlichia Chaffeensis Antibody Igg 511945 EHRLICHIA CHAFFEENSIS IGG <1:64 09/03/2017 Lymes Disease Total Antibodies With Western Blot Reflex B. BURGDORFERI, IGG/IGM 0.223 08/30/2017 Lymes Disease Total Antibodies With Western Blot Reflex C-Reactive Protein Qnt Crqnt CRP 0.00 mg/dl 08/27/2017 Sed Rate Ord21 ESR 8 mm/hr 08/27/2017 Comp Metabolic Rec489 NA 135 mEq/L 08/16/2017 Comp Metabolic Mdk785 K 4.1 mEq/L 08/16/2017 Comp Metabolic Xvt708 CL 98 mEq/L 08/16/2017 Comp Metabolic Ugp941 CO2 28.0 mEq/L 08/16/2017 Comp Metabolic Gwj957 ANION GAP 13 08/16/2017 Comp Metabolic Wvx898 GLUCOSE 299 mg/dL 08/16/2017 Comp Metabolic Oyx691 Creat 0.9 mg/dL 08/16/2017 Comp Metabolic Pth082 eGFR 90 ml/min/1.73m2 08/16/2017 Comp Metabolic Mzf262 BUN 20 mg/dL 08/16/2017 Comp Metabolic Bxm531 B/C Ratio 21.5 Ratio 08/16/2017 Comp Metabolic Vyu434 CALCIUM 9.2 mg/dL 08/16/2017 Comp Metabolic Jnn830 ALK PHOS 84 U/L 08/16/2017 Comp Metabolic Mbx683 AST(SGOT) 19 U/L 08/16/2017 Comp Metabolic Miw857 ALT(SGPT) 24 U/L 08/16/2017 Comp Metabolic Knu883 BILI T 1.1 mg/dL 08/16/2017 Comp Metabolic Zsb907 ALBUMIN 4.2 g/dL 08/16/2017 Comp Metabolic Mwp631 TPRO 7.2 g/dL 08/16/2017 Comp Metabolic Mgc356 GLOB 3.0 g/dL 08/16/2017 Comp Metabolic Sbn733 A/G Ratio 1.4 Ratio 08/16/2017 Comp Metabolic Hzl490 Osmo 284 mOsmo 08/16/2017 %Hba1C Wcb287 % HbA1c 30294-4 12.5 % 08/16/2017 %Hba1C Qgb862 Gluc Ave 312 mg/dL 08/16/2017 Urine Culture Ucult Preliminary NO Growth Day 1 06/23/2017 Urine Culture Ucult Complete NO Growth Day 2 06/23/2017 C RAP A SC [id number] Strep A Negative 06/08/2017 %Hba1C Mbe521 % HbA1c 36451-8 9.5 % 05/04/2017 %Hba1C Dyp180 Gluc Ave 226 mg/dL 05/04/2017 Tsh Ord6 [...] 31.7 pg 05/04/2017 Cbc With Differential Ord2 [place]% 8.5 % 05/04/2017 Cbc With Differential Ord2 [...] 2.48 K/ul 05/04/2017 Cbc With Differential Ord2 [place] ABS# 0.5 K/ul 05/04/2017 Cbc With Differential Ord2 Eos ABS# 0.1 K/ul 05/04/2017 Cbc With Differential Ord2 Baso ABS# 0.0 K/ul 05/04/2017 Comp Metabolic Dsc072 NA 135 mEq/L 05/04/2017 Comp Metabolic Zvh973 K 4.2 mEq/L 05/04/2017 Comp Metabolic Wqe469 CL 99 mEq/L 05/04/2017 Comp Metabolic Rrp770 CO2 26.0 mEq/L 05/04/2017 Comp Metabolic Ocq196 ANION GAP 14 05/04/2017 Comp Metabolic Trb120 GLUCOSE 277 mg/dL 05/04/2017 Comp Metabolic Yri996 Creat 0.9 mg/dL 05/04/2017 Comp Metabolic Atr627 eGFR 96 ml/min/1.73m2 05/04/2017 Comp Metabolic Cnt181 BUN 23 mg/dL 05/04/2017 Comp Metabolic Kxm884 B/C Ratio 26.1 Ratio 05/04/2017 Comp Metabolic Zpv910 CALCIUM 8.9 mg/dL 05/04/2017 Comp Metabolic Gmy874 ALK PHOS 81 U/L 05/04/2017 Comp Metabolic Xep498 AST(SGOT) 21 U/L 05/04/2017 Comp Metabolic Kxf458 ALT(SGPT) 27 U/L 05/04/2017 Comp Metabolic Hne045 BILI T 1.2 mg/dL 05/04/2017 Comp Metabolic Eke428 ALBUMIN 4.0 g/dL 05/04/2017 Comp Metabolic Imz086 TPRO 6.7 g/dL 05/04/2017 Comp Metabolic Zvv674 GLOB 2.7 g/dL 05/04/2017 Comp Metabolic Mlt377 A/G Ratio 1.5 Ratio 05/04/2017 Comp Metabolic Yid785 Osmo 284 mOsmo 05/04/2017 C A/B FLU [id number] Influenza A Scr Negative 02/16/2017 C A/B FLU [id number] Influenza B Scr Positive 02/16/2017 Cbc With [...] 30.3 pg 05/23/2016 Cbc With Differential Ord2 [place]% 8.8 % 05/23/2016 Cbc With Differential Ord2 [...] 2.07 K/ul 05/23/2016 Cbc With Differential Ord2 [place] ABS# 0.5 K/ul 05/23/2016 Cbc With Differential Ord2 Eos ABS# 0.1 K/ul 05/23/2016 Cbc With Differential Ord2 Baso ABS# 0.0 K/ul 05/23/2016 Lipid Ord30 CHOL 397 mg/dL 05/17/2016 Lipid Ord30 HDL 48.0 mg/dl 05/17/2016 Lipid Ord30 TRIG 578 mg/dL 05/17/2016 Lipid Ord30 LDL Unable to calculate Due to elevated triglycerides mg/dL 05/17/2016 Lipid Ord30 C/HDL 8.3 Ratio 05/17/2016 %Hba1C Vne913 % HbA1c 76218-3 12.4 % 05/16/2016 %Hba1C Ypj059 Gluc Ave 309 mg/dL 05/16/2016 Cbc With [...] 30.4 pg 05/15/2016 Cbc With Differential Ord2 [place]% 7.8 % 05/15/2016 Cbc With Differential Ord2 [...] 2.04 K/ul 05/15/2016 Cbc With Differential Ord2 [place] ABS# 0.5 K/ul 05/15/2016 Cbc With Differential Ord2 Eos ABS# 0.1 K/ul 05/15/2016 Cbc With Differential Ord2 Baso ABS# 0.0 K/ul 05/15/2016 Tsh Ord6 hTSH II 1.70 uIU/mL 05/15/2016 Comp Metabolic Pix596 NA 135 mEq/L 05/15/2016 Comp Metabolic Rvj033 K 3.9 mEq/L 05/15/2016 Comp Metabolic Mzh626 CL 96 mEq/L 05/15/2016 Comp Metabolic Gzv700 CO2 27.0 mEq/L 05/15/2016 Comp Metabolic Aqz910 ANION GAP 16 05/15/2016 Comp Metabolic Zjn665 GLUCOSE 183 mg/dL 05/15/2016 Comp Metabolic Nwg452 Creat 1.1 mg/dL 05/15/2016 Comp Metabolic Peo298 eGFR 71 ml/min/1.73m2 05/15/2016 Comp Metabolic Yng134 BUN 17 mg/dL 05/15/2016 Comp Metabolic Fhu124 B/C Ratio 14.9 Ratio 05/15/2016 Comp Metabolic Xgu489 CALCIUM 9.6 mg/dL 05/15/2016 Comp Metabolic Rey535 ALK PHOS 100 U/L 05/15/2016 Comp Metabolic Lkd359 AST(SGOT) 20 U/L 05/15/2016 Comp Metabolic Uuo626 ALT(SGPT) 20 U/L 05/15/2016 Comp Metabolic Odv654 BILI T 1.3 mg/dL 05/15/2016 Comp Metabolic Dav081 ALBUMIN 4.6 g/dL 05/15/2016 Comp Metabolic Qhz817 TPRO 8.1 g/dL 05/15/2016 Comp Metabolic Jff156 GLOB 3.5 g/dL 05/15/2016 Comp Metabolic Hfr765 A/G Ratio 1.3 Ratio 05/15/2016 Comp Metabolic Xsz819 Osmo 276 mOsmo 05/15/2016 Review of Systems [...] Codes Date URINALYSIS NONAUTO W/O SCOPE CPT-4: 71360 02/17/2019 KETOROLAC TROMETHAMINE INJ CPT-4: J1885 10/21/2018 TRIAMCINOLONE ACET INJ NOS CPT-4: J3301 09/30/2018 THER/PROPH/DIAG INJ SC/IM CPT-4: 14723 09/11/2018 TRIAMCINOLONE ACET INJ NOS CPT-4: J3301 09/11/2018 IMMUNIZATION ADMIN CPT -4: 60652 07/22/2018 FLU VAC NO PRSV 4 MENA 3 YRS+ CPT-4: 60187 07/22/2018 TRIAMCINOLONE ACET INJ NOS CPT-4: J3301 06/28/2018 KETOROLAC TROMETHAMINE INJ CPT-4: J1885 05/02/2018 FLU VAC NO PRSV 4 MENA 3 YRS+ CPT-4: 85976 08/16/2017 IMMUNIZATION ADMIN CPT -4: 41970 08/16/2017 URINALYSIS NONAUTO W/O SCOPE CPT-4: 89148 06/21/2017 TRIAMCINOLONE ACET INJ NOS CPT-4: J3301 05/04/2017 THER/PROPH/DIAG INJ SC/IM CPT-4: 14438 05/04/2017 TRIAMCINOLONE ACET INJ NOS CPT-4: J3301 02/16/2017 ROCEPHIN, PER 250 MG CPT-4: J0696 02/16/2017 ROCEPHIN, PER 250 MG CPT-4: J0696 10/06/2016 URINALYSIS NONAUTO W/O SCOPE CPT-4: 10897 07/18/2016 TRIAMCINOLONE ACET INJ NOS CPT-4: J3301 01/20/2016 Vital Signs Date Vital 02/17/2019 Blood Pressure 1: 120/80 Code : 8480-6 Blood Pressure 2: 102/80 Code: 8480-6 Heart Rate 1: 89 bpm SpO2: 96% 01/13/2019 Blood Pressure 1: 120/70 Code : 8480-6 BMI: 34.2 Code : 17520-1 Heart Rate 1 : 74 bpm Height: 6'2" SpO2: 96% Weight: 266 lbs 12/31/2018 Blood Pressure 1: 122/70 Code : 8480-6 BMI: 34.4 Code : 65067-6 Heart Rate 1 : 90 bpm Height: 6'2" SpO2: 97% Temperature: 36.6 (C) / 97.8 (F) Weight: 268 lbs 12/26/2018 Blood Pressure 1: 118/72 Code : 8480-6 BMI: 34.4 Code : 50663-0 Heart Rate 1 : 82 bpm Height: 6'2" SpO2: 98% Temperature: 36.6 (C) / 97.9 (F) Weight: 268 lbs 11/18/2018 Blood Pressure 1: 120/84 Code : 8480-6 BMI: 33.9 Code : 54073-5 Heart Rate 1 : 77 bpm Height: 6'2" SpO2: 99% Temperature: 36.7 (C) / 98.1 (F) Weight: 264 lbs 11/12/2018 Blood Pressure 1: 138/76 Code : 8480-6 BMI: 33.9 Code : 88030-9 Heart Rate 1 : 91 bpm Height: 6'2" SpO2: 99% Weight: 264 lbs 10/30/2018 Blood Pressure 1: 130/72 Code : 8480-6 BMI: 33.3 Code : 23948-3 Heart Rate 1 : 83 bpm Height: 6'2" SpO2: 95% Temperature: 36.5 (C) / 97.7 (F) Weight: 259 lbs 10/24/2018 Blood Pressure 1: 130/70 Code : 8480-6 Heart Rate 1: 95 bpm Height: 6'2" SpO2: 96% 10/23/2018 Blood Pressure 1: 100/70 Code : 8480-6 Blood Pressure 2: 102/70 Code: 8480-6 BMI: 33.3 Code: 25196-0 Heart Rate 1: 106 bpm Height: 6'2" SpO2: 98% Weight: 259 lbs 10/21/2018 Blood Pressure 1: 140/90 Code : 8480-6 BMI: 32.9 Code : 31011-3 Heart Rate 1 : 96 bpm Height: 6'2" SpO2: 92% Weight: 256 lbs 10/17/2018 Blood Pressure 1: 110/68 Code : 8480-6 BMI: 32.9 Code : 13931-1 Heart Rate 1 : 82 bpm Height: 6'2" SpO2: 97% Weight: 256 lbs 10/14/2018 Blood Pressure 1: 124/70 Code : 8480-6 BMI: 33.6 Code : 57004-2 Heart Rate 1 : 76 bpm Height: 6'2" SpO2: 99% Temperature: 36.3 (C) / 97.3 (F) Weight: 262 lbs 09/30/2018 Blood Pressure 1: 138/82 Code : 8480-6 BMI: 33.6 Code : 31733-1 Heart Rate 1 : 82 bpm Height: 6'2" SpO2: 98% Temperature: 36.3 (C) / 97.3 (F) Weight: 262 lbs 09/09/2018 Blood Pressure 1: 140/80 Code : 8480-6 BMI: 33.0 Code : 04294-3 Heart Rate 1 : 97 bpm Height: 6'2" SpO2: 93% Temperature: 36.8 (C) / 98.2 (F) Weight: 257 lbs 07/22/2018 Blood Pressure 1: 120/78 Code : 8480-6 BMI: 31.6 Code : 52797-2 Heart Rate 1 : 87 bpm Height: 6'2" SpO2: 98% Weight: 246 lbs 07/16/2018 Blood Pressure 1: 132/74 Code : 8480-6 BMI: 31.2 Code : 24784-8 Heart Rate 1 : 90 bpm Height: 6'2" SpO2: 96% Weight: 243 lbs 07/01/2018 Blood Pressure 1: 142/82 Code : 8480-6 BMI: 31.8 Code : 14298-1 Heart Rate 1 : 88 bpm Height: 6'2" SpO2: 98% Weight: 248 lbs 06/28/2018 Blood Pressure 1: 132/76 Code : 8480-6 BMI: 31.8 Code : 91145-1 Heart Rate 1 : 107 bpm Height: 6'2" SpO2: 98% Temperature: 37.9 (C) / 100.3 (F) Weight: 248 lbs 06/18/2018 Blood Pressure 1: 138/82 Code : 8480-6 BMI: 31.8 Code : 74398-1 Heart Rate 1 : 82 bpm Height: 6'2" SpO2: 97% Weight: 248 lbs 06/04/2018 Blood Pressure 1: 128/84 Code : 8480-6 BMI: 33.9 Code : 46047-2 Heart Rate 1 : 86 bpm Height: 6'2" SpO2: 95% Weight: 264 lbs 05/13/2018 Blood Pressure 1: 130/80 Code : 8480-6 BMI: 31.1 Code : 34403-6 Heart Rate 1 : 100 bpm Height: 6'2" SpO2: 94% Weight: 242 lbs 05/02/2018 Blood Pressure 1: 134/84 Code : 8480-6 BMI: 31.2 Code : 63750-9 Heart Rate 1 : 93 bpm Height: 6'2" SpO2: 98% Weight: 243 lbs 04/29/2018 Blood Pressure 1: 142/88 Code : 8480-6 BMI: 31.6 Code : 58709-6 Heart Rate 1 : 96 bpm Height: 6'2" SpO2: 96% Temperature: 36.7 (C) / 98.1 (F) Weight: 246 lbs 03/13/2018 Blood Pressure 1: 120/76 Code : 8480-6 BMI: 30.9 Code : 83703-2 Heart Rate 1 : 112 bpm Height: 6'2" SpO2: 97% Weight: 241 lbs 03/07/2018 Blood Pressure 1: 108/78 Code : 8480-6 BMI: 30.0 Code : 05454-4 Heart Rate 1 : 87 bpm Height: 6'2" SpO2: 98% Weight: 234 lbs 02/28/2018 Blood Pressure 1: 106/74 Code : 8480-6 BMI: 30.0 Code : 27494-7 Heart Rate 1 : 101 bpm Height: 6'2" SpO2: 98% Temperature: 36.4 (C) / 97.5 (F) Weight: 234 lbs 02/13/2018 Blood Pressure 1: 110/78 Code : 8480-6 BMI: 30.0 Code : 78751-1 Heart Rate 1 : 106 bpm Height: 6'2" SpO2: 98% Weight: 234 lbs 01/29/2018 Blood Pressure 1: 106/68 Code : 8480-6 BMI: 30.0 Code : 43657-7 Heart Rate 1 : 108 bpm Height: 6'2" SpO2: 98% Weight: 234 lbs 08/27/2017 Blood Pressure 1: 134/76 Code : 8480-6 Heart Rate 1: 98 bpm Height: SpO2: 97% Weight: 08/16/2017 Blood Pressure 1: 128/80 Code : 8480-6 BMI: 32.0 Code : 56418-0 Heart Rate 1 : 94 bpm Height: [...] Code : 8480-6 BMI: 31.8 Code : 07152-5 Heart Rate 1 : 102 bpm Height: [...] Code : 8480-6 BMI: 31.8 Code : 20123-9 Heart Rate 1 : 85 bpm Height: 6'2" SpO2: 96% Temperature: 36.6 (C) / 97.9 (F) Weight: 248 lbs 02/12/2017 Blood Pressure 1: 126/76 Code : 8480-6 BMI: 31.8 Code : 20954-0 Heart Rate 1 : 106 bpm Height: 6'2" SpO2: 91% Weight: 248 lbs 02/05/2017 Blood Pressure 1: 146/86 Code : 8480-6 BMI: 31.9 Code : 51986-9 Heart Rate 1 : 98 bpm Height: 6'2" SpO2: 87% Temperature: 36.7 (C) / 98.0 (F) Weight: 248 lbs 8 oz 01/29/2017 Blood Pressure 1: 132/84 Code : 8480-6 BMI: 31.8 Code : 00017-9 Heart Rate 1 : 83 bpm Height: 6'2" SpO2: 97% Weight: 248 lbs 10/13/2016 Blood Pressure 1: 128/72 Code : 8480-6 Heart Rate 1: 86 bpm SpO2: 94% 10/09/2016 Blood Pressure 1: 128/68 Code : 8480-6 Heart Rate 1: 136 bpm SpO2: 94% Temperature: 36.8 (C) / 98.2 (F) 10/06/2016 Blood Pressure 1: 140/80 Code : 8480-6 BMI: 32.1 Code : 63017-4 Heart Rate 1 : 94 bpm Height: 6'2" SpO2: 95% Weight: 250 lbs 07/18/2016 Blood Pressure 1: 128/86 Code : 8480-6 BMI: 32.1 Code : 95214-0 Heart Rate 1 : 89 bpm Height: 6'2" SpO2: 96% Weight: 250 lbs 06/22/2016 Blood Pressure 1: 118/70 Code : 8480-6 BMI: 32.1 Code : 38993-9 Heart Rate 1 : 70 bpm Height: 6'2" SpO2: 97% Weight: 250 lbs 05/23/2016 Blood Pressure 1: 128/80 Code : 8480-6 BMI: 32.1 Code : 94095-0 Heart Rate 1 : 76 bpm Height: 6'2" SpO2: 98% Weight: 250 lbs 05/15/2016 Blood Pressure 1: 110/90 Code : 8480-6 BMI: 31.3 Code : 77168-7 Heart Rate 1 : 111 bpm Height: 6'2" SpO2: 97% Temperature: 36.6 (C) / 97.8 (F) Weight: 244 lbs 01/20/2016 Blood Pressure 1: 128/76 Code : 8480-6 BMI: 33.0 Code : 27508-7 Heart Rate 1 : 103 bpm Height: [...] data Encounters Encounter Performer Location Codes Date ([id number]) 65213 EST. PATIENT, LEVEL III Diagnosis: Hypotension due to drugs[ICD10: I95.2] Diagnosis: Other fatigue[ICD10: R53.83] Marcela Ha MD, [facility] CPT-4: 95280 02/17/2019 ([id number]) 80942 EST. 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 PATIENT, LEVEL IV Diagnosis: Type 2 diabetes mellitus with hyperglycemia[ICD10: E11.65] Diagnosis: Epigastric pain[ICD10: R10.13] Diagnosis: Pain in joints of right hand[ICD10: M25.541] Diagnosis: Shortness of breath[ICD10: R06.02] Marcela Ha MD, [facility] CPT-4: 89064 12/31/2018 31507 EST. PATIENT, LEVEL III Diagnosis: Other chest pain[ICD10: R07.89] Diagnosis: Cough[ICD10: R05] Madeline Ha MD, [facility] CPT-4: 61864 12/26/2018 ([id number]) 23044 EST. PATIENT, LEVEL III Diagnosis: Cough[ICD10: R05] Melida Ha MD, [facility] CPT-4: 03283 11/18/2018 ([id number]) 33703 EST. PATIENT, LEVEL III Diagnosis: Cough[ICD10: R05] Diagnosis: Pneumonia due to other Gram-negative bacteria[ICD10: J15.6] Marcela Ha MD, [facility] CPT-4: 55386 11/12/2018 ([id number]) 85175 EST. PATIENT, LEVEL III Diagnosis: Pneumonia due to other Gram-negative bacteria[ICD10: J15.6] Diagnosis: Cough[ICD10: R05] Melida Ha MD, [facility] CPT-4: 40916 10/30/2018 ([id number]) 65685 EST. PATIENT, LEVEL II Diagnosis: Pain in joints of right hand[ICD10: M25.541] Diagnosis: Trigger finger, right middle finger[ICD10: M65.331] Marcela Ha MD, [facility] CPT-4: 17383 10/24/2018 ([id number]) 49404 EST. PATIENT, LEVEL IV Diagnosis: Essential (primary) hypertension[ICD10: I10] Diagnosis: Type 2 diabetes mellitus with foot ulcer[ICD10: E11.621] Melida Ha MD, [facility] CPT-4: 41056 10/23/2018 ([id number]) 71597 EST. PATIENT, LEVEL III Diagnosis: Cellulitis of right finger[ICD10: L03.011] Diagnosis: Type 2 diabetes mellitus with foot ulcer[ICD10: E11.621] Diagnosis: Pain in right hand[ICD10: M79.641] Melida Ha MD, [facility] CPT-4: 27214 10/21/2018 51751 EST. PATIENT, LEVEL III Diagnosis: Spontaneous ecchymoses[ICD10: R23.3] Diagnosis: Cellulitis of right lower limb[ICD10: L03.115] Diagnosis: Cellulitis of left lower limb[ICD10: L03.116] Madeline Ha MD, [facility] CPT-4: 85686 10/17/2018 ([id number]) 70463 EST. PATIENT, LEVEL III Diagnosis: Cough[ICD10: R05] Diagnosis: Acute bronchitis, unspecified[ICD10: J20.9] Melida Ha MD, [facility] CPT-4: 92419 10/14/2018 87004 EST. PATIENT, LEVEL III Diagnosis: Acute laryngopharyngitis[ICD10: J06.0] Diagnosis: Cough[ICD10: R05] Madeline Ha MD, [facility] CPT-4: 37873 09/30/2018 ([id number]) 13897 EST. PATIENT, LEVEL III Diagnosis: Acute recurrent maxillary sinusitis[ICD10: J01.01] Diagnosis: Cough[ICD10: R05] Diagnosis: Type 2 diabetes mellitus with hyperglycemia[ICD10: E11.65] Marcela Ha MD, [facility] CPT-4: 11193 09/09/2018 ([id number]) 80863 EST. PATIENT, LEVEL IV Diagnosis: Essential (primary) hypertension[ICD10: I10] Diagnosis: Mixed hyperlipidemia[ICD10: E78.2] Diagnosis: Bipolar disorder, current episode depressed, moderate[ICD10: F31.32] Diagnosis: Type 2 diabetes mellitus with other specified complication[ICD10: E11.69] Melida Ha MD, [facility] CPT-4: 66893 2017 ([id number]) 95256 EST. PATIENT, LEVEL III Diagnosis: Insomnia due to medical condition[ICD10: G47.01] Marcela Ha MD, [facility] CPT-4: 76693 07/16/2018 ([id number]) Miscellaneous no charge Diagnosis: Cough[ICD10: R05] Madeline Ha MD, [facility] CPT-4: 97680 07/01/2018 29942 EST. PATIENT, LEVEL III Diagnosis: Cough[ICD10: R05] Diagnosis: Acute laryngopharyngitis[ICD10: J06.0] Diagnosis: Other allergic rhinitis[ICD10: J30.89] Madeline Ha MD, [facility] CPT-4: 21100 06/28/2018 ([id number]) 76989 EST. PATIENT, LEVEL IV Diagnosis: Type 2 diabetes mellitus with hyperglycemia[ICD10: E11.65] Diagnosis: Essential (primary) hypertension[ICD10: I10] Melida Ha MD, [facility] CPT-4: 47855 06/18/2018 ([id number]) 21211 EST. PATIENT, LEVEL IV Diagnosis: Type 2 diabetes mellitus with hyperglycemia[ICD10: E11.65] Diagnosis: Essential (primary) hypertension[ICD10: I10] Diagnosis: Localized edema[ICD10: R60.0] Melida Ha MD, [facility] CPT- 4: 44555 06/04/2018 ([id number]) 85024 EST. PATIENT, LEVEL III Diagnosis: Type 2 diabetes mellitus with hyperglycemia[ICD10: E11.65] Diagnosis: Myalgia[ICD10: M79.1] Diagnosis: Pain in right hip[ICD10: M25.551] Diagnosis: Pain in left hip[ICD10: M25.552] Marcela Ha MD, [facility] CPT-4: 23254 05/13/2018 ([id number]) 91097 EST. PATIENT, LEVEL III Diagnosis: Myalgia[ICD10: M79.1] Diagnosis: Pain in right hip[ICD10: M25.551] Diagnosis: Pain in left hip[ICD10: M25.552] Marcela Ha MD, [facility] CPT-4: 98696 05/02/2018 ([id number]) 92940 EST. PATIENT, LEVEL IV Diagnosis: Essential (primary) hypertension[ICD10: I10] Diagnosis: Type 2 diabetes mellitus with hyperglycemia[ICD10: E11.65] Diagnosis: Major depressive disorder, single episode, moderate[ICD10: F32.1] Diagnosis: Myalgia[ICD10: M79.1] Marcela Ha MD, [facility] CPT-4: 90091 04/29/2018 ([id number]) 21630 EST. PATIENT, LEVEL IV Diagnosis: Type 2 diabetes mellitus with hyperglycemia[ICD10: E11.65] Diagnosis: Essential (primary) hypertension[ICD10: I10] Diagnosis: Major depressive disorder, single episode, moderate[ICD10: F32.1] Melida Ha MD, [facility] CPT-4: 50669 03/13/2018 ([id number]) 88429 EST. PATIENT, LEVEL III Diagnosis: Type 2 diabetes mellitus with hyperglycemia[ICD10: E11.65] Diagnosis: Bipolar disorder, current episode depressed, moderate[ICD10: F31.32] Diagnosis: Orthostatic hypotension[ICD10: I95.1] Marcela Ha MD, [facility] CPT-4: 34193 03/07/2018 ([id number]) 58113 EST. PATIENT, LEVEL IV Diagnosis: Type 2 diabetes mellitus with hyperglycemia[ICD10: E11.65] Diagnosis: Major depressive disorder, single episode, moderate[ICD10: F32.1] Diagnosis: Orthostatic hypotension[ICD10: I95.1] Diagnosis: Other fatigue[ICD10: R53.83] Marcela Ha MD, [facility] CPT-4: 52570 02/28/2018 54634 EST. PATIENT, LEVEL IV Diagnosis: Other fatigue[ICD10: R53.83] Diagnosis: Other malaise[ICD10: R53.81] Diagnosis: Gastro-esophageal reflux disease without esophagitis[ICD10: K21.9] Madeline Ha MD, [facility] CPT-4: 21687 02/13/2018 ([id number]) 88596 EST. PATIENT, LEVEL IV Diagnosis: Type 2 diabetes mellitus with foot ulcer[ICD10: E11.621] Diagnosis: Essential (primary) hypertension[ICD10: I10] Diagnosis: Gastro-esophageal reflux disease without esophagitis[ICD10: K21.9] Marcela Ha MD, [facility] CPT-4: 11901 01/29/2018 17402 EST. PATIENT, LEVEL III Diagnosis: Other malaise[ICD10: R53.81] Diagnosis: Other fatigue[ICD10: R53.83] Diagnosis: Pain in right shoulder[ICD10: M25.511] Diagnosis: Pain in left shoulder[ICD10: M25.512] Madeline Ha MD, [facility] CPT-4: 62448 08/27/2017 ([id number]) 28467 EST. PATIENT, LEVEL IV Diagnosis: Essential (primary) hypertension[ICD10: I10] Diagnosis: Type 2 diabetes mellitus with hyperglycemia[ICD10: E11.65] Diagnosis: VACCIN FOR INFLUENZA[ICD10: Z23] Melida Ha MD, [facility] CPT-4: 34047 08/16/2017 40081 EST. PATIENT, LEVEL III Diagnosis: Z[place] without complications[ICD10: B02.9] Madeline Ha MD, [facility] CPT-4: 79495 07/26/2017 ([id number]) 47232 EST. PATIENT, LEVEL III Diagnosis: Cellulitis of right lower limb[ICD10: L03.115] Marcela Ha MD, [facility] CPT-4: 57300 07/03/2017 46755 EST. PATIENT, LEVEL II Diagnosis: Laceration without foreign body of left forearm, initial encounter[ ICD10: S51.812A] Marcela Ha MD, [facility] CPT-4: 28214 06/29/2017 ([id number]) 94118 EST. PATIENT, LEVEL III Diagnosis: Cellulitis of right lower limb[ICD10: L03.115] Diagnosis: Type 2 diabetes mellitus with foot ulcer[ICD10: E11.621] Marcela Ha MD [facility] CPT-4: 19462 06/18/2017 ([id number]) 12472 EST. PATIENT, LEVEL IV Diagnosis: Cellulitis of right lower limb[ICD10: L03.115] Diagnosis: Acute laryngopharyngitis[ICD10: J06.0] Diagnosis: Gastro-esophageal reflux disease without esophagitis[ICD10: K21.9] Marcela Ha MD, [facility] CPT-4: 22171 06/07/2017 ([id number]) 96282 EST. PATIENT, LEVEL III Diagnosis: Type 2 diabetes mellitus with hyperglycemia[ICD10: E11.65] Diagnosis: Insect bite (nonvenomous) of abdominal wall, initial encounter[ICD10 : S30.861A] Marcela Ha MD [facility] CPT-4: 99498 05/17/2017 ([id number]) 29414 EST. PATIENT, LEVEL III Diagnosis: Allergic contact dermatitis due to plants, except food[ICD10: L23.7] Melida Ha MD [facility] CPT-4: 71748 05/04/2017 ([id number]) 97806 EST. PATIENT, LEVEL III Diagnosis: Essential (primary) hypertension[ICD10: I10] Marcela Ha MD [facility] CPT-4: 33744 03/15/2017 ([id number]) 12083 EST. PATIENT, LEVEL III Diagnosis: Cough[ICD10: R05] Diagnosis: Essential (primary) hypertension[ICD10: I10] Marcela Ha MD [facility] CPT-4: 66511 03/01/2017 ([id number]) 42058 EST. PATIENT, LEVEL III Diagnosis: Cough[ICD10: R05] Diagnosis: Nasal congestion[ICD10: R09.81] Diagnosis: Acute recurrent maxillary sinusitis[ICD10: J01.01] Marcela Ha MD [facility] CPT-4: 55030 02/16/2017 ([id number]) 53997 EST. PATIENT, LEVEL III Diagnosis: Type 2 diabetes mellitus with hyperglycemia[ICD10: E11.65] Marcela Ha MD, [facility] CPT-4: 83129 02/12/2017 ([id number]) 55684 EST. PATIENT, LEVEL IV Diagnosis: Type 2 diabetes mellitus with hyperglycemia[ICD10: E11.65] Diagnosis: Muscle weakness (generalized)[ICD10: M62.81] Diagnosis: Disorientation, unspecified[ICD10: R41.0] Marcela Ha MD, [facility] CPT-4: 46102 02/05/2017 ([id number]) Patient admitted to the hospital from clinic (NO CHARGE) Diagnosis: Type 2 diabetes mellitus with hyperglycemia[ICD10: E11.65] Diagnosis: Disorientation, unspecified[ICD10: R41.0] Diagnosis: Muscle weakness (generalized)[ICD10: M62.81] Marcela Ha MD, [facility] CPT-4: 92281R 01/29/2017 ([id number]) Miscellaneous no charge Diagnosis: Cellulitis of right lower limb[ICD10: L03.115] Marcela Ha MD, [facility] CPT-4: 70288 10/13/2016 ([id number]) Miscellaneous no charge Diagnosis: Type 2 diabetes mellitus with foot ulcer[ICD10: E11.621] Diagnosis: Pain in right foot[ICD10: M79.671] Marcela Ha MD, [facility] CPT-4: 80279 10/09/2016 14818 EST. PATIENT, LEVEL II Diagnosis: Cellulitis of right lower limb[ICD10: L03.115] Marcela Ha MD, [facility] CPT-4: 46611 10/06/2016 ([id number]) 37368 EST. PATIENT, LEVEL IV Diagnosis: Low back pain[ICD10: M54.5] Diagnosis: Other deformities of toe(s) (acquired), left foot[ICD10: M20.5X2] Diagnosis: Type 2 diabetes mellitus with foot ulcer[ICD10: E11.621] Marcela Ha MD , [facility] CPT-4: 97416 07/18/2016 ([id number]) 87888 EST. PATIENT, LEVEL III Diagnosis: Type 2 diabetes mellitus with hyperglycemia[ICD10: E11.65] Marcela Ha MD, [facility] CPT-4: 29639 06/22/2016 ([id number]) 77650 EST. PATIENT, LEVEL IV Diagnosis: Type 2 diabetes mellitus with hyperglycemia[ICD10: E11.65] Diagnosis: Mixed hyperlipidemia[ICD10: E78.2] Diagnosis: Other hemoglobinopathies[ICD10: D58.2] [facility] CPT-4: 53062 05/23/2016 ([id number]) 75872 EST. PATIENT, LEVEL IV Diagnosis: Type 2 diabetes mellitus with other specified complication[ICD10: E11.69] Diagnosis: Dehydration[ICD10: E86.0] Marcela Ha MD, [facility] CPT-4: 83965 05/15/2016 ([id number]) OFFICE VISIT, NEW - LEVEL 3 Diagnosis: Allergic contact dermatitis due to plants, except food[ICD10: L23.7] Madeline Ha MD, [facility] CPT-4: 22544 01/20/2016 Plan of Care Planned Activity Notes Codes Status Date Visit Plan: Orthostasis -decrease coreg -monitor symptoms and follow up in 10 days- sooner if needed Fatigue-check labs 02/17/2019 Appointment: Marcela Oshea WPtel: [address] [place], [place] [phone] (30 min) Complex 02/17/2019 Patient Education: Patient Medication Summary Completed 02/17/2019 Appointment: Marcela Oshea WPtel: [address] [place], [place] [phone] (30 min) Complex 01/14/2019 Visit Plan: Hypertension [...] Summary Completed 01/13/2019 Appointment: Marcela Oshea WPtel: [address] [place], [place] [phone] [place] (30 min) Complex 01/10/2019 Visit Plan: Epigastric pain -start protonix daily- monitor symptoms Chest pain -work up negative done last week with Madeline-recommend appt with Dr Brennan Joint pain-check inflammation makers DM-check Hgb a1c 12/31/2018 Appointment: Marcela Oshea WPtel: [phone] [id number] [place] (15 min) Moderate 12/31/2018 Patient Education: Patient Medication Summary Completed 12/31/2018 Visit Plan: chest pain - EKG and cardiac enzymes OK - discussed with Dr. Ha - will treat for pneumonia - pt is to notify clinic if symptoms do not improve, if they worsen, or with any changes questions, or concerns. 12/26/2018 Appointment: Madeline Kennedy WPtel: [phone] [id number] [place] (30 min) Complex 12/26/2018 Patient Education: Patient Medication Summary Completed 12/26/2018 Referral: Andrew Cross Patient informed. Referral info faxed. Completed Visit Plan: cough - improved - continue with inhalers - continue with symbicort - rx for proair for PRN use when pt is feelign short of breath with activity. 11/18/2018 Appointment: Melida Ha WPtel: [phone] [facility] [place] (15 min) Moderate 11/18/2018 Patient [...] of plan. 11/12/2018 Appointment: Marcela Oshea WPtel: [facility]5 [phone] (30 min) Complex 11/12/2018 Patient Education: Patient Medication Summary Completed 11/12/2018 Patient Education: Symbicort - 18-64 - eCopay Completed 11/12/2018 Care Plan: Referral Order SNOMED-CT : 988381207 Pending 11/12/2018 Referral: Niko Mantilla Referral Completed 11/04/2018 Visit Plan: Pneumonia, cough - recent diagnosis of Moraxella Cattharalis - with sensitivity to levaquin - will give 2 wks of levaquin since he had improvement but no full resolution of symptoms. 10/30/2018 Appointment: Melida Ha WPtel: [facility]4 [facility] 30 min appointments only in [...] for evaluation 10/24/2018 Appointment: Marcela Oshea WPtel: [facility]4 [phone] (30 min) Complex 10/24/2018 Patient Education: Patient Medication Summary Completed 10/24/2018 Care Plan: Referral Order SNOMED-CT : [id number] Pending 10/24/2018 Visit Plan: Hypotension - discussed [...] controlled. 10/23/2018 App[facility]ment: [phone] (15 min) Moderate 10/23/2018 Patient [...] [facility]she[phone] [place] (30 min) Complex 10/21/2018 Patient Education: [...] warmth, discharge. 10/17/2018 Appointment: Madeline Kennedy WPtel: [address] [place] [address] (15 min) Moderate 10/17/2018 Patient Education: Patient [...] acutely worsen. 10/14/2018 Appointment: Marcela Oshea WPtel: [facility] (15 min) Moderate 10/14/2018 Patient Education: Patient Medication Summary Completed 10/14/2018 Care Plan: CHEST X-RAY 2VW FRONTAL&LATL LOINC : 41409-7 Pending 10/14/2018 Visit Plan: URI - Pt [...] allergy spray. 09/30/2018 Appointment: Madeline Kennedy WPtel: [facility] (15 min) Moderate 09/30/2018 Patient Education: Patient [...] A1C 09/09/2018 Appointment: Marcela Oshea WPtel: [phone] [phone] (15 min) Moderate 09/09/2018 Patient Education: Patient Medication Summary Completed 09/09/2018 Patient Education: Patient Medication Summary Completed 09/06/2018 Patient Education: Cholesterol Management Completed 09/06/2018 Care Plan: Comp Metabolic Pending 09/06/2018 Care Plan: Cbc With Differential Pending 09/06/2018 Care Plan: %Hba1C LOINC : 47134-9 Pending 09/06/2018 Care Plan: Tsh Pending 09/06/2018 Care Plan: Lipid Pending 09/06/2018 Appointment: Marcela Oshea WPtel: [facility]5 [phone] [place] (15 min) Moderate 08/26/2018 Appointment: Marcela Oshea WPtel: [facility]5 [phone] (15 min) Moderate 08/23/2018 Visit Plan: Hypertension [...] in clinic. 07/22/2018 Appointment: [phone] (15 min) Moderate 07/22/2018 Patient [...] time insomnia. 07/16/2018 Appointment: Marcela [facility]shea [facility]Ptel: [phone] (30 min) Complex 07/16/2018 Patient Education: Patient Medication Summary Completed 07/16/2018 Visit Plan: cough - improved - notify clinic if symptoms do not completely resolve, or with any questions or concerns. 07/01/2018 Appointment: Madeline Kennedy WPtel: [phone] (15 min) Moderate 07/01/2018 Patient Education: Patient [...] spray. 06/28/2018 Appointment: Madeline Kennedy WPtel: [phone] (15 min) Moderate 06/28/2018 Patient Education: Patient [...] home. 06/18/2018 Appointment: Melida Ha WPtel: [phone] [facility] (15 min) Moderate 06/18/2018 Patient Education: [...] swelling improves. 06/04/2018 Appointment: Melida Ha WPtel: [facility] (15 min) Moderate 06/04/2018 Patient Education: [...] allow for greater blood glucose control. Joint wuzo-hidytvlm-vyjxlrj- symptoms have improved -stop meloxicam due to upset stomach-call if symptoms return 05/13/2018 Appointment: Marcela Oshea WPtel: [facility]5 [phone] (30 min) Complex 05/13/2018 Patient Education: Patient Medication Summary Completed 05/13/2018 Visit Plan: Bilateral hip csef-plkszuev-ujhgakl IM injection administered today for c/o continued myalgia/arthralgia. Patient to start taking Meloxicam 15mg PO daily. Advised to return to clinic if symptoms do not improve. 05/02/2018 Appointment: Marcela Oshea WPtel: [facility]7 [phone] (30 min) Complex 05/02/2018 Patient Education: Patient [...] readings at home. Diabetes Mellitus -check labs Madiolom-nyboldy-tzre bite-rx for doxycycline-follow up in 2 weeks 04/29/2018 Appointment: Marcela Oshea WPtel: [phone] [phone] (15 min) Moderate 04/29/2018 Patient Education: Patient Medication Summary Completed 04/29/2018 Appointment: Melida Ha WPtel: [phone] [facility] (15 min) Moderate 04/15/2018 Appointment: Marcela Oshea WPtel: [phone] [phone] (30 min) Complex 03/21/2018 Visit Plan: Hypertension [...] cymbalta 03/13/2018 Appointment: Melida Ha WPtel: [phone] [facility] (30 min) Complex 03/13/2018 Patient Education: Patient Medication Summary Completed 03/13/2018 Visit Plan: DM-continue same medications-monitor blood sugars routinely as directed -rx for new glucometer and test strips provided Bipolar-currently depressed-patient start on vraylar-follow up in 2 weeks, sooner if needed. Patient and verbalied understanding of plan. Hypotension- stay off losartan 03/07/2018 Appointment: Marcela Oshea WPtel: [phone] [phone] (30 min) Complex 03/07/2018 Patient Education: Patient Medication Summary Completed 03/07/2018 Appointment: Mel[facility]el[phone] (15 min) Moderate 03/04/2018 Visit [...] this patient. 02/28/2018 Appointment: Marcela Oshea WPtel: [phone] [place] (30 min) Complex 02/28/2018 Patient Education: [...] not improving. 02/13/2018 Appointment: Madeline Kennedy WPtel: [phone] (15 min) Moderate 02/13/2018 Patient Education: Patient Medication Summary Completed 02/13/2018 Referral: Sun Glynn Patient informed. Referral info faxed. Completed Visit Plan: DM-weight loss-not checking blood sugars- patient sent for labs today HTN-low tnhim-hzzijav-vmcfz labs Callus of foot and fissue of heel-refer to Dr Glynn for evaluation Esophageal Reflux - the patient has been counseled against excessive intake of caffeine, spicy foods, peppermint , and cinnamon - all of which can exacerbate esophageal reflux. The patient is to take medications as prescribed and call the office if the symptoms are not improving. 01/29/2018 Appointment: Marcela Oshea WPtel: [phone] [place] (30 min) Complex 01/29/2018 Patient Education: Patient Medication Summary Completed 01/29/2018 Care Plan: Comp Metabolic Cancelled 01/29/2018 Care Plan: Cbc With Differential Cancelled 01/29/2018 Care Plan: %Hba1C LOINC : 91417-2 Cancelled 01/29/2018 Care Plan: Referral Order SNOMED-CT : [id number] Cancelled 01/29/2018 Visit Plan: Fatigue, malaise, joint [...] concerns. 08/27/2017 Appointment: Madeline Kennedy WPtel: [phone] [place] (15 min) Moderate 08/27/2017 Patient Education: [...] - 08/16/2017 Appointment: Melida Ha WPtel: [phone] [facility] (30 min) Complex 08/16/2017 Patient Education: Patient Medication Summary Completed 08/16/2017 Patient Education: Obesity Completed 08/16/2017 Appointment: Madeline Kennedy WPtel: [phone] [facility] (30 min) Complex 08/07/2017 Visit Plan: Shingles [...] to be considered contagious. 07/26/2017 Appointment: Madeline Kenendy WPtel: [phone] [facility] [place] (15 min) Moderate 07/26/2017 Patient Education: Patient Medication Summary Completed 07/26/2017 Visit Plan: Cellulitis right foot-cultured today in the office-home health to reapply wound vac--appt with wound care on to evaluate for debridement- 07/03/2017 Appointment: Marcela Oshea WPtel: [phone] [phone] [place] (30 min) Complex 07/03/2017 Patient Education: Patient Medication Summary Completed 07/03/2017 Visit Plan: Abrasion left arm - Pt was instructed to keep the wound clean, wash with antibacterial soap, use triple antibiotic ointment, call if redness, pustular drainage, or any other acute concerns. 06/29/2017 Appointment: Marcela Oshea WPtel: [facility] [address] (15 min) Moderate 06/29/2017 Patient Education: [...] of plan. 06/18/2017 Appointment: Marcela Oshea WPtel: [facility]2 [place] [phone] (15 min) Moderate 06/18/2017 Patient Education: Patient [...] diet-start prilosec 06/07/2017 Appointment: Marcela Oshea WPtel: [facility]2 [phone] (10 min) Simple 06/07/2017 Patient Education: Patient [...] bite-continue doxycycline 05/17/2017 Appointment: Marcela Oshea WPtel: [facility]8 [phone] (30 min) Complex 05/17/2017 Patient Education: Patient [...] [facility]. 05/04/2017 Appointment: Marcela Oshea WPtel: [address] [place], [place] [phone] (30 min) Complex 05/04/2017 Patient Education: Patient [...] home. Cough-resolved 03/15/2017 Appointment: Marcela Oshea WPtel: [facility]7 [phone] (15 min) Moderate 03/15/2017 Patient Education: Patient Medication Summary Completed 03/15/2017 Appointment: Marcela Osheatel: [address] [place], [place] [phone] (30 min) Complex 03/12/2017 Visit Plan: Feng [...] discussed 02/16/2017 Appointment: Marcela Oshea WPtel: [phone] [phone] (15 min) Moderate 02/16/2017 Patient Education: Patient [...] less controlled. 02/12/2017 Appointment: Marcela Oshea WPtel: [facility]9 [phone] (30 min) Complex 02/12/2017 Patient Education: Patient Medication Summary Completed 02/12/2017 Appointment: Marcela Oshea WPtel: [phone] [phone] (30 min) Complex 02/06/2017 Visit Plan: Diabetes [...] will consider 02/05/2017 Appointment: Marcela Oshea WPtel: [facility]5 [phone] [place] (30 min) Complex 02/05/2017 Patient Education: Patient Medication Summary Completed 02/05/2017 Appointment: Marcela Oshea WPtel: [address] [place], [place] [phone] [place] (30 min) Complex 01/30/2017 Visit Plan: Acute confusion-uncontrolled diabetes- chronically noncompliant with treatment and stopped his insulin several months ago-r/o stroke vs DKA-Dr Ha in to evaluate patient-plan to admit for further work up and treatment-patient's called and she transported him to the hospital 01/29/2017 Appointment: Marcela Oshea WPtel: [facility]5 [phone] [place] (30 min) Complex 01/29/2017 Patient Education: Patient Medication Summary Completed 01/29/2017 Patient Education: Obesity Completed 01/29/2017 Visit Plan: Right foot pain-MRI shows foreign body-appt with Dr Grewal for evaluation on Sunday. 10/13/2016 Appointment: Marcela Oshea WPtel: [facility]5 [phone] [place] (15 min) Moderate 10/13/2016 Patient Education: Patient Medication Summary Completed 10/13/2016 Appointment: Marcela Oshea WPtel: [facility]5 [phone] [place] (30 min) Complex 10/12/2016 Visit Plan: Right foot posy-eciwtgud-ohhaw washer dropped on foot-xray negative but pain continues to increase-recommend MRI of foot for further evaluation-refer to wound care for lesions on right foot, patient has diabetes and history of osteomyelitis-culture obtained today-continue oral abx- follow up in the office on , sooner if needed 10/09/2016 Visit Plan: Right foot vadf-gwdeftzw-zkawt washer dropped on foot-xray negative but pain continues to increase-recommend MRI of foot for further evaluation-refer to wound care for lesions on right foot, patient has diabetes and history of osteomyelitis-culture obtained today-continue oral abx- follow up in the office on , sooner if needed 10/09/2016 Visit Plan: Right foot bhrk-uscgmwdp-qrdws washer dropped on foot-xray negative but pain continues to increase-recommend MRI of foot for further evaluation-refer to wound care for lesions on right foot, patient has diabetes and history of osteomyelitis-culture obtained today-continue oral abx- follow up in the office on , sooner if needed 10/09/2016 Appointment: Marcela Oshea WPtel: [facility]6 [address] (30 min) Complex 10/09/2016 Patient Education: Patient Medication Summary Completed 10/09/2016 Visit Plan: Cellulitis - continue with oral antibiotics as previously directed, return to clinic as previously directed, call for acute change in symptoms, worsening redness, warmth, discharge. 10/06/2016 Appointment: Marcela Oshea WPtel: [address] [place], [place] [phone] (10 min) Simple 10/06/2016 Patient Education: Patient Medication Summary Completed 10/06/2016 Appointment: Marcela Oshea WPtel: [address] [place], [place] [phone] (30 min) Complex 08/24/2016 Referral: Sun Glynn [...] for evaluation 07/18/2016 Appointment: Marcela Oshea WPtel: [phone] (30 min) Complex 07/18/2016 Patient Education: Patient Medication Summary Completed 07/18/2016 Patient Education: Obesity Completed 07/18/2016 Care Plan: Referral Order SNOMED-CT : [id number] Cancelled 07/18/2016 Visit Plan: Diabetes Mellitus - [...] control. 06/22/2016 Appointment: Marcela Oshea WPtel: [phone] [phone] (30 min) Complex 06/22/2016 Patient Education: Patient [...] today 05/23/2016 Appointment: Marcela Oshea WPtel: [phone] [phone] (30 min) Complex 05/23/2016 Patient Education: Patient [...] of plan. 05/15/2016 Appointment: Marcela Oshea WPtel: [facility]5 [phone] (15 min) Moderate 05/15/2016 Patient Education: Patient [...] edge called into [facility]. xray lumbar spine flexeril as needed voltaren gel ulcer left 4th toe-refer to food quality tester . Low back pain- history of spinal [...] for fracture from injury . Right foot fdvu-mowzlwem-hvuqp washer dropped on foot-xray negative but pain [...] for fracture from injury . Right foot mivv-ijcuapyv-ywcub washer dropped on foot-xray negative but pain [...] for fracture from injury . Right foot lbpa-rpxuvayq-amrmk washer dropped on foot-xray negative but pain [...] if needed Fatigue-check labs . Bilateral hip omhh-vzmxsvcv-uixfpcv IM injection administered today for c/o continued myalgia/arthralgia. Patient to start taking Meloxicam 15mg PO daily. Advised to return to clinic if symptoms do not improve. . DM-weight loss-not checking blood sugars-patient sent for labs today HTN-low myaic-fntddcb-dgudj labs Callus of foot and fissue of [...] readings are starting to become less controlled. Ifzaiqgga-qksjtjfh-xvpuyoda to monitor Generalized weakness-refer for PT-patient refuses [...] allow for greater blood glucose control. Joint fhuj-afxsxyci-gicrtju-symptoms have improved -stop meloxicam due to upset [...] readings at home. Diabetes Mellitus -check labs Zjiafrhm-avhibkl-prxw bite-rx for doxycycline-follow up in 2 weeks [...]
--- OUTSIDE RECORDS SUMMARY | 2019-03-10 10:10 | XMS REPORT | CCD ---
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 Name Role Phone PP Unavailable CCM Unavailable Summary Purpose Interface Exchange Insurance Providers Payer name Policy type / Coverage type Covered green party ID Effective Begin Date Effective End Date [employer] Commercial Insurance [id number] 2018 Unknown Family history Father Diagnosis Age At Onset Hyperlipidemia Unknown Heart Attack Unknown Mother Diagnosis Age At Onset Hypertension Unknown Social History Social History Element Codes Description Effective Dates Marital status Unknown Mignon 01/20/2016 Number of children Unknown 4 01/20/2016 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/[address]: 413237417 Never smoker 01/20/[address]: 451565741 Never drinks alcohol 01/20/2016 Allergies, Adverse Reactions, Alerts Substance Reaction Codes Entered Date Inactivated Date Status * NO KNOWN DRUG ALLERGIES Unknown 05/23/2016 No Inactive Date Active Past Medical History Illness Codes Condition Status Onset Date Resolved Date 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 ICD-10: I95.2 Active 02/17/2019 Unknown Other fatigue ICD-9: 780.79 ICD-10: R53.83 Active 08/27/2017 Unknown 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 [...] R53.83 08/27/2017 Active 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 [...] Instructions Cymbalta 60 mg capsule,delayed release RxNorm: 446602 1 Capsule(s) PO QAM 02/19/2019 09/16/2019 Active will call for refill- dose change clonazepam 1 mg tablet RxNorm: 197854 2 Tablet(s) PO HS 201806/14/2019 Active Tresiba FlexTouch U-200 insulin 200 unit/mL (3 mL) subcutaneous pen RxNorm: 2019562 50 Unit(s) SQ daily 01/08/2019 05/07/2019 Active please give him 30 day supply Protonix 40 mg tablet,delayed release RxNorm: 707908 1 Tablet(s) PO daily 12/31/2018 01/29/2019 Inactive Tresiba FlexTouch U-200 insulin 200 unit/mL (3 mL) subcutaneous pen RxNorm: 7903084 50 Unit(s) SQ daily 12/31/2018 01/07/2019 Inactive please give him 30 day supply Augmentin 500 mg-125 mg tablet RxNorm: 551848 1 Tablet(s) PO TID 12/26/2018 01/04/2019 Inactive Augmentin 500 mg-125 mg tablet RxNorm: 843158 1 Tablet(s) PO TID 12/26/2018 12/25/2018 Inactive ProAir HFA 90 mcg/actuation aerosol inhaler RxNorm: 8290823 2 Puff(s) INH QID as needed 11/18/2018 No Stop Date Active Lyrica 50 mg capsule RxNorm: 473138 Capsule(s) PO daily 201802/08/2019 Inactive Cymbalta 30 mg capsule,delayed release RxNorm: 831213 1 Capsule(s) PO QAM 11/13/2018 02/18/2019 Inactive Lyrica 50 mg capsule RxNorm: 053128 Capsule(s) PO daily 201811/12/2018 Inactive Symbicort 160 mcg-4.5 mcg/actuation HFA aerosol inhaler RxNorm: 1070924 2 Puff(s) INH BID 11/12/2018 12/11/2018 Inactive albuterol sulfate 2.5 mg/3 mL (0.083 %) solution for nebulization RxNorm: 790234 3 Milliliter(s) INH UD 11/07/2018 No Stop Date Active azithromycin 500 mg tablet RxNorm: 170860 500mg on day 1 then 250 mg daily x 4 more day Tablet(s) PO 11/07/20182018 Inactive 500mg on day 1 and then 250mg daily 2-4 cefdinir 300 mg capsule RxNorm: 566507 1 Capsule(s) PO BID 01/201911/06/2018 Inactive azithromycin 500 mg tablet RxNorm: 187455 500mg on day 1 then 250 mg daily x 4 more day Tablet(s) PO 11/07/20182018 Inactive 500mg on day 1 and then 250mg daily 2-4 cefdinir 300 mg capsule RxNorm: 156050 1 Capsule(s) PO BID 01/201911/13/2018 Inactive Levaquin 500 mg tablet RxNorm: 036340 1 Tablet(s) PO daily TAKE ONE TABLET BY MOUTH DAILY UNTIL GONE 10/31/20182018 Inactive Levaquin 500 mg tablet RxNorm: 440020 1 Tablet(s) PO daily 11/12/2018 Inactive valsartan 80 mg tablet RxNorm: 810965 1/2 Tablet(s) PO daily 04/20/2019 Active doxycycline hyclate 100 mg tablet RxNorm: 8301338 1 Tablet(s) PO BID 10/21/2018 10/27/2018 Inactive ketorolac 60 mg/2 mL intramuscular solution RxNorm: 5492110 Milliliter(s) IM 10/21/2018 10/21/2018 Inactive Levaquin 500 mg tablet RxNorm: 750695 1 Tablet(s) PO daily 10/31/2018 Inactive Tessalon Perles 100 mg capsule RxNorm: 163615 1-2 Capsule(s) PO TID PRN 10/14/2018 No Stop Date Active albuterol sulfate 2.5 mg/3 mL (0.083 %) solution for nebulization RxNorm: 254409 3 Milliliter(s) INH UD 10/14/201812/2018 Inactive Levaquin 500 mg tablet RxNorm: 722243 1 Tablet(s) PO daily 08/201810/16/2018 Inactive Coreg 6.25 mg tablet RxNorm: 093475 TAKE ONE TABLET BY MOUTH TWICE A DAY 09/30/2018 03/28/2019 Active albuterol sulfate 2.5 mg/3 mL (0.083 %) solution for nebulization RxNorm: 093198 3 Milliliter(s) INH UD 09/30/201807/2018 Inactive Kenalog 40 mg/mL suspension for injection RxNorm: 2700203 1.5 Milliliter(s) Inj 09/30/2018 09/30/2018 Inactive Keflex 500 mg capsule RxNorm: 299651 1 Capsule(s) PO TID 201710/03/2018 Inactive prednisone 20 mg tablet RxNorm: 602860 2 Tablet(s) PO daily 09/29/2018 Inactive Kenalog 40 mg/mL suspension for injection RxNorm: 4525061 Milliliter(s) Inj 09/11/2018 09/11/2018 Inactive Zyrtec 10 mg tablet RxNorm: 9347035 1 Tablet(s) PO daily 09/0910/08/2018 Inactive Keflex 500 mg capsule RxNorm: 230547 1 Capsule(s) PO TID 201709/15/2018 Inactive Tresiba FlexTouch U-200 insulin 200 unit/mL (3 mL) subcutaneous pen RxNorm: 3150379 50 Unit(s) SQ daily 08/30/2018 08/29/2018 Inactive please give him 30 day supply Tresiba FlexTouch U-200 insulin 200 unit/mL (3 mL) subcutaneous pen RxNorm: 4186953 50 Unit(s) SQ daily 08/30/2018 09/28/2018 Inactive please give him 30 day supply Novolog Flexpen U-100 Insulin aspart 100 unit/mL subcutaneous RxNorm: 8182594 8 Unit(s) SQ AC 08/13/2018 No Stop Date Active Novolog Flexpen U-100 Insulin aspart 100 unit/mL subcutaneous RxNorm: 8144168 8 Unit(s) SQ AC 07/22/20182017 Inactive this is an update on his medication Novolog Flexpen U-100 Insulin aspart 100 unit/mL subcutaneous RxNorm: 2009451 12 Unit(s) SQ AC 07/05/20182017 Inactive this is an update on his medication Toujeo SoloStar U-300 Insulin 300 unit/mL (1.5 mL) subcutaneous pen RxNorm: 1641019 INJECT 50 UNITS UNDER THE SKIN DAILY 07/01/2018 08/29/2018 Inactive Mucinex 600 mg tablet, extended release RxNorm: 313632 1 Tablet(s) PO BID 06/28/2018 07/04/2018 Inactive Zofran 4 mg tablet RxNorm: 557179 1 Tablet(s) PO TID as needed nausea 06/28/2018 07/02/2018 Inactive Kenalog 40 mg/mL suspension for injection RxNorm: 9006401 Milliliter(s) Inj 06/28/2018 06/28/2018 Inactive Flonase Allergy Relief 50 mcg/actuation nasal spray, suspension RxNorm: 7766042 1 [place] NASAL BID 06/28/20182017 Inactive Lyrica 50 mg capsule RxNorm: 665872 Capsule(s) PO daily 201707/06/2018 Inactive Novolog Flexpen U-100 Insulin aspart 100 unit/mL subcutaneous RxNorm: 3122051 10 Unit(s) SQ AC 06/18/20182017 Inactive this is an update on his medication Lasix 20 mg tablet RxNorm: 029044 1 Tablet(s) PO BIW 201707/02/2018 Inactive atorvastatin 80 mg tablet RxNorm: 942053 1 Tablet(s) PO QHS 04/201812/06/2018 Inactive clonazepam 1 mg tablet RxNorm: 299755 2 Tablet(s) PO HS as needed 06/10/2018 06/08/2018 Inactive clonazepam 1 mg tablet RxNorm: 371691 2 Tablet(s) PO HS 201702/17/2019 Inactive Lyrica 50 mg capsule RxNorm: 410611 Capsule(s) PO daily 201707/08/2018 Inactive Lasix 20 mg tablet RxNorm: 754747 1 Tablet(s) PO TIW 201706/11/2018 Inactive Toujeo SoloStar U-300 Insulin 300 unit/mL (1.5 mL) subcutaneous pen RxNorm: 1736214 50 Unit(s) SQ daily 05/07/2018 06/30/2018 Inactive meloxicam 15 mg tablet RxNorm: 143327 15 Milligram(s) PO daily 05/02/2018 05/12/2018 Inactive ketorolac 30 mg/mL injection solution RxNorm: 927306 2 Milliliter(s) Inj 05/02/2018 05/02/2018 Inactive Toujeo SoloStar U-300 Insulin 300 unit/mL (1.5 mL) subcutaneous pen RxNorm: 8519543 45 Unit(s) daily 04/29/2018 Inactive clonazepam 1 mg tablet RxNorm: 095763 1 Tablet(s) PO Q8 as needed 04/29/2018 06/09/2018 Inactive doxycycline hyclate 100 mg tablet RxNorm: 5160863 1 Tablet(s) PO BID 04/29/2018 05/12/2018 Inactive Cymbalta 30 mg capsule,delayed release RxNorm: 123652 1 Capsule(s) PO QAM 03/13/2018 10/08/2018 Inactive Lexapro 10 mg tablet RxNorm: 208471 1 Tablet(s) PO QPM 201703/03/2018 Inactive Toujeo SoloStar U-300 Insulin 300 unit/mL (1.5 mL) subcutaneous pen RxNorm: 4609444 20 Unit(s) daily 02/28/2018 Inactive Protonix 40 mg tablet,delayed release RxNorm: 924764 1 Tablet(s) PO daily 01/29/2018 06/09/2018 Inactive clonazepam 1 mg tablet RxNorm: 906119 1 Tablet(s) PO Q8 as needed 12/12/2017 03/10/2018 Inactive Tamiflu 75 mg capsule RxNorm: 964176 1 Capsule(s) PO BID 201712/03/2017 Inactive doxycycline hyclate 100 mg capsule RxNorm: 2489023 1 Capsule(s) PO BID 09/07/2017 09/20/2017 Inactive doxycycline hyclate 100 mg capsule RxNorm: 6958253 1 Capsule(s) PO BID 08/27/2017 09/06/2017 Inactive prednisone 20 mg tablet RxNorm: 837177 2 Tablet(s) PO daily 08/31/2017 Inactive clopidogrel 75 mg tablet RxNorm: 194022 1 Tablet(s) PO daily 06/09/2018 Inactive atorvastatin 40 mg tablet RxNorm: 970382 1 Tablet(s) PO QHS 02/27/2018 Inactive losartan 25 mg tablet RxNorm: 895645 TAKE ONE TABLET BY MOUTH DAILY 08/22/2017 06/09/2018 Inactive Toujeo SoloStar 300 unit/mL (1.5 mL) subcutaneous insulin pen RxNorm: 1280411 45 Unit(s) daily 08/17/2017 08/20/2017 Inactive mupirocin 2 % topical ointment RxNorm: 275331 1 Application TOP TID to the lesions on chest 08/16/2017 08/25/2017 Inactive Toujeo SoloStar 300 unit/mL (1.5 mL) subcutaneous insulin pen RxNorm: 5270619 40 Unit(s) daily 08/16/2017 08/16/2017 Inactive valacyclovir 1 gram tablet RxNorm: 889127 1 Tablet(s) PO TID 08/01/2017 Inactive clonazepam 1 mg tablet RxNorm: 406358 1 Tablet(s) PO Q8 as needed 07/03/2017 09/30/2017 Inactive Levaquin 500 mg tablet RxNorm: 231719 1 Tablet(s) PO daily 06/25/2017 Inactive Levaquin 500 mg tablet RxNorm: 531017 1 Tablet(s) PO daily 06/21/2017 Inactive losartan 25 mg tablet RxNorm: 290927 1 Tablet(s) PO daily 201608/16/2017 Inactive nystatin 100,000 unit/mL oral suspension RxNorm: 327946 5 Milliliter(s) PO QID Swish et swallow 06/18/2017 06/17/2017 Inactive nystatin 100,000 unit/mL oral suspension RxNorm: 596141 5 Milliliter(s) PO QID Swish et swallow 06/18/2017 06/27/2017 Inactive Cipro 500 mg tablet RxNorm: 800808 1 Tablet(s) PO BID 201606/18/2017 Inactive Cipro 500 mg tablet RxNorm: 879886 1 Tablet(s) PO BID 201606/11/2017 Inactive Toujeo SoloStar 300 unit/mL (1.5 mL) subcutaneous insulin pen RxNorm: 4787687 INJECT 10 UNITS UNDER THE SKIN DAILY 06/12/2017 08/15/2017 Inactive Keflex 500 mg capsule RxNorm: 650876 1 Capsule(s) PO TID 201606/13/2017 Inactive doxycycline hyclate 100 mg capsule RxNorm: 3767369 1 Capsule(s) PO BID 05/17/2017 05/21/2017 Inactive doxycycline hyclate 100 mg capsule RxNorm: 7759919 1 Capsule(s) PO BID 05/11/2017 05/16/2017 Inactive losartan 25 mg tablet RxNorm: 802242 1 Tablet(s) PO daily 201606/17/2017 Inactive atorvastatin 40 mg tablet RxNorm: 209685 1 Tablet(s) PO daily 03/01/2017 08/23/2017 Inactive clopidogrel 75 mg tablet RxNorm: 476223 1 Tablet(s) PO daily 08/23/2017 Inactive Flonase Allergy Relief 50 mcg/actuation nasal spray, suspension RxNorm: 8810809 2 [place] NASAL daily 02/16/20172016 Inactive Augmentin 875 mg-125 mg tablet RxNorm: 667197 1 Tablet(s) PO BID 02/16/2017 02/22/2017 Inactive GET PROBIOTIC TO TAKE WHILE ON ABX Tamiflu 75 mg capsule RxNorm: 339690 1 Capsule(s) PO BID 201602/20/2017 Inactive ceftriaxone 500 mg solution for injection RxNorm: 7016020 1 Milliliter(s) Inj 02/16/2017 02/16/2017 Inactive Kenalog 40 mg/mL suspension for injection RxNorm: 8503435 1 Milliliter(s) Inj 02/16/2017 02/16/2017 Inactive Toujeo SoloStar 300 unit/mL (1.5 mL) subcutaneous insulin pen RxNorm: 8333991 25 Unit(s) SQ QAM 02/12/2017 06/10/2017 Inactive Toujeo SoloStar 300 unit/mL (1.5 mL) subcutaneous insulin pen RxNorm: 5022179 10 Unit(s) SQ QAM 02/05/2017 02/11/2017 Inactive lisinopril 10 mg tablet RxNorm: 078529 1 Tablet(s) PO daily 02/28/2017 Inactive atorvastatin 40 mg tablet RxNorm: 389733 1 Tablet(s) PO daily 02/01/2017 02/28/2017 Inactive doxycycline hyclate 100 mg capsule RxNorm: 0577907 1 Capsule(s) PO BID 02/01/2017 02/10/2017 Inactive clonazepam 1 mg tablet RxNorm: 410818 1 Tablet(s) PO Q8 as needed 10/09/2016 01/05/2017 Inactive ceftriaxone 1 gram solution for injection RxNorm: 3073824 Inj 10/06/2016 10/06/2016 Inactive cyclobenzaprine 10 mg tablet RxNorm: 308756 1/2-1 Tablet(s) PO TID PRN 07/18/2016 01/28/2017 Inactive clonazepam 1 mg tablet RxNorm: 858764 1 Tablet(s) PO Q8 as needed 05/31/2016 05/29/2016 Inactive clonazepam 1 mg tablet RxNorm: 108731 1 Tablet(s) PO Q8 as needed 05/31/2016 08/28/2016 Inactive Toujeo SoloStar 300 unit/mL (1.5 mL) subcutaneous insulin pen RxNorm: 9303257 10 Unit(s) SQ daily 05/23/2016 01/28/2017 Inactive Crestor 10 mg tablet RxNorm: 702845 1 Tablet(s) PO QHS 201501/28/2017 Inactive Crestor 10 mg tablet RxNorm: 725056 1 Tablet(s) PO QHS 201505/18/2016 Inactive clonazepam 1 mg tablet RxNorm: 019173 1 Tablet(s) PO Q8 as needed 04/25/2016 05/30/2016 Inactive prednisone 20 mg tablet RxNorm: 065009 3 Tablet(s) PO daily 06/201602/10/2016 Inactive prednisone 20 mg tablet RxNorm: 028071 3 Tablet(s) PO daily 06/201605/14/2016 Inactive Kenalog 40 mg/mL suspension for injection RxNorm: 4208915 Milliliter(s) Inj 01/20/2016 01/20/2016 Inactive aspirin 81 mg tablet,delayed release RxNorm: 855005 1 Tablet(s) PO daily No Start Date Active Brilinta 90 mg tablet RxNorm: 7039182 1 Tablet(s) PO BID No Start Date Active acetaminophen 500 mg tablet RxNorm: 465063 1-2 Tablet(s) PO as needed No Start Date Active clopidogrel 75 mg tablet RxNorm: 352334 1 Tablet(s) PO daily No Start Date 02/28/2017 Inactive Novolog Flexpen U-100 Insulin aspart 100 unit/mL subcutaneous RxNorm: 8126863 5 units with breakfast lunch and 10 supper Unit(s) SQ No Start Date 06/17/2018 Inactive clonazepam 1 mg tablet RxNorm: 136826 1 Tablet(s) PO QHS No Start Date 04/24/2016 Inactive Coreg 6.25 mg tablet RxNorm: 115441 1 Tablet(s) PO BID No Start Date 09/29/2018 Inactive acyclovir 400 mg tablet RxNorm: 563538 2 Tablet(s) PO 5x daily No Start Date 02/28/2017 Inactive Lyrica 50 mg capsule RxNorm: 629466 Capsule(s) PO BID No Start Date 06/09/2018 Inactive Vraylar 3 mg capsule RxNorm: 0361965 1 Capsule(s) PO daily No Start Date 03/12/2018 Inactive valsartan 80 mg tablet RxNorm: 267942 1 Tablet(s) PO daily No Start Date 10/22/2018 Inactive Medication Administered Medication Codes Instructions Start Date Status ketorolac 60 mg/2 mL intramuscular solution RxNorm: 2872190 Milliliter 10/21/2018 No longer Active Kenalog 40 mg/mL suspension for injection RxNorm: 4686992 1.5Milliliter 09/30/2018 No longer Active Kenalog 40 mg/mL suspension for injection RxNorm: 5481637 Milliliter 09/11/2018 No longer Active Kenalog 40 mg/mL suspension for injection RxNorm: 4454851 Milliliter 06/28/2018 No longer Active ketorolac 30 mg/mL injection solution RxNorm: 684406 2Milliliter 05/02/2018 No longer Active ceftriaxone 500 mg solution for injection RxNorm: 9864382 1Milliliter 02/16/2017 No longer Active Kenalog 40 mg/mL suspension for injection RxNorm: 5767383 1Milliliter 02/16/2017 No longer Active ceftriaxone 1 gram solution for injection RxNorm: 7984572 10/06/2016 No longer Active Kenalog 40 mg/mL suspension for injection RxNorm: 9482678 Milliliter 01/20/2016 No longer Active Immunizations Vaccine Codes Date Status Influenza CVX: 141 07/22/2018 completed Influenza CVX: 141 08/16/2017 completed Assessments Condition Codes Effective Dates Other fatigue ICD-10: R53.83 ICD-9: 780.79 02/17/2019 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-10: I95.2 ICD-9: 458.8 02/17/2019 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-10: I25.10 [...] Item Item Code Result Date Culture Sputum 158405 LOWER RESPIRATORY TRACT CULTURE SEE NOTES 11/14/2018 Culture Sputum 112858 LOWER RESPIRATORY TRACT CULTURE SEE NOTES 10/16/2018 LIPID GRP CHOLESTEROL TNP:Duplicate Order 09/10/2018 LIPID GRP Triglyceride TNP:Duplicate Order 2017 LIPID GRP 4215754 HDL CHOLESTEROL TNP:Duplicate Order 2017 LIPID GRP Chol/HDL Ratio TNP:Duplicate Order 2017 LIPID GRP LDL Cholesterol TNP:Duplicate Order 2017 A1C HPLC 5887075 Hgb A1c 37891-4 TNP:Duplicate Order 2017 C Diff An [id number] GDH TNP:Lab Request 06/22/2018 C Diff An [id number] Toxin A/B TNP:Lab Request 06/22/2018 C Diff An [id number] C Diff Analyzer TNP:Lab Request 2017 C Diff An [id number] IC OK? TNP:Lab Request 06/22/2018 CBC 7464625 WBC 6.4 10e9/L 05/02/2018 CBC 7330492 RBC 5.60 10e12/L 05/02/2018 CBC 5443012 HEMOGLOBIN 17.0 g/dL 05/02/2018 CBC 1792857 HEMATOCRIT 48.0 % 05/02/2018 CBC 9521199 MCV 85.7 fL 05/02/2018 CBC 7743658 MCH 30.4 pg 05/02/2018 CBC 6479047 MCHC 35.4 g/dL 05/02/2018 CBC 7451227 PLATELET COUNT 166 10e9/L 05/02/2018 CBC 4702163 Mean Plt Volume 11.6 fL 05/02/2018 CBC 9053714 Neut Auto 48.6 % 05/02/2018 CBC 0383404 Lymph Auto 41.7 % 05/02/2018 CBC 6391689 [place] Auto 8.1 % 05/02/2018 CBC 1327107 RDW 13.1 % 05/02/2018 CBC 3140889 Eos Auto 1.1 % 05/02/2018 CBC 8663390 Baso Auto 0.5 % 05/02/2018 CBC 0083585 Neutrophil Abs 3.11 10e9/L 05/02/2018 CBC 4099922 Lymphocyte Abs 2.67 10e9/L 05/02/2018 CBC 3344720 Monocyte Abs 0.52 10e9/L 05/02/2018 CBC 2052418 Eosinophil Abs 0.07 10e9/L 05/02/2018 CBC 8136597 RDW-SD 40.0 fL 05/02/2018 CBC 0746241 Basophil Abs 0.03 10e9/L 05/02/2018 CHEM 14 8191825 AST 17 U/L 05/02/2018 CHEM 14 4438329 ALT 17 U/L 05/02/2018 CHEM 14 6706282 BUN 17 mg/dL 05/02/2018 CHEM 14 2757531 ALBUMIN 4.0 g/dL 05/02/2018 CHEM 14 8999642 CHLORIDE 97 mmol/L 05/02/2018 CHEM 14 9839595 Bili Total 0.9 mg/dL 05/02/2018 CHEM 14 7428850 ALK PHOS 67 U/L 05/02/2018 CHEM 14 1386823 SODIUM 135 mmol/L 05/02/2018 CHEM 14 5041872 CREATININE 1.18 mg/dL 05/02/2018 CHEM 14 0158123 CALCIUM 9.4 mg/dL 05/02/2018 CHEM 14 4431801 POTASSIUM 4.4 mmol/L 05/02/2018 CHEM 14 7481942 TOTAL PROTEIN 6.9 g/dL 05/02/2018 CHEM 14 6052590 GLUCOSE 316 mg/dL 05/02/2018 CHEM 14 8042326 Bicarbonate 29 mmol/L 05/02/2018 CHEM 14 4819486 AGAP 9 mmol/L 05/02/2018 MEAN GLUC 6844842 Calc Mean Gluc 283 mg/dL 05/02/2018 A1C HPLC 7334084 Hgb A1c 04290-9 11.5 % 05/02/2018 GFR CALC 0221978 GFR Non Afr Amr >60 mL/min 05/02/2018 GFR CALC 0402702 GFR Afr Amr >60 mL/min 05/02/2018 JIC Gold 0864327 JIC Gold Complete 02/28/2018 GFR CALC 3852229 GFR Non Afr Amr >60 mL/min 02/28/2018 GFR CALC 7876509 GFR Afr Amr >60 mL/min 02/28/2018 UA W/CII 6037927 UA Urine Appear Normal 02/28/2018 UA W/CII 9241746 UA Protein 1+ 02/28/2018 UA W/CII 1885285 UA Hemoglobin Negative 02/28/2018 UA W/CII 3270020 UA Glucose 4+ 02/28/2018 UA W/CII 2653080 UA Ketones Trace 02/28/2018 UA W/CII 1227362 UA pH 5.5 02/28/2018 UA W/CII 4145534 U Spec [place] 1.015 02/28/2018 UA W/CII 4583412 UA Bilirubin Negative 02/28/2018 UA W/CII 4046511 UA Nitrite NEG 02/28/2018 UA W/CII 0964369 UA Leuk Esteras Negative 02/28/2018 MICR 3522768 UA WBC/hpf 1 02/28/2018 MICR 7702987 UA RBC hpf 2 02/28/2018 MICR 1243110 UA WBC auto 3.8 /uL 02/28/2018 MICR 1736746 UA RBC auto 12.2 /uL 02/28/2018 MICR 7769510 UA SQ EPI auto 2.3 /uL 02/28/2018 MICR 4592686 UA H Cast auto 0.10 /uL 02/28/2018 CBC 6064154 WBC 6.4 10e9/L 02/28/2018 CBC 3058597 RBC 5.51 10e12/L 02/28/2018 CBC 3007819 HEMOGLOBIN 16.7 g/dL 02/28/2018 CBC 3597791 HEMATOCRIT 46.9 % 02/28/2018 CBC 3426827 MCV 85.1 fL 02/28/2018 CBC 2834407 MCH 30.3 pg 02/28/2018 CBC 9156205 MCHC 35.6 g/dL 02/28/2018 CBC 3443007 PLATELET COUNT 173 10e9/L 02/28/2018 CBC 6650124 Mean Plt Volume 11.6 fL 02/28/2018 CBC 8907386 Neut Auto 51.8 % 02/28/2018 CBC 4846269 Lymph Auto 39.9 % 02/28/2018 CBC 4707472 [place]ike Auto 7.3 % 02/28/2018 CBC 8295287 RDW 13.3 % 02/28/2018 CBC 9363737 Eos Auto 0.8 % 02/28/2018 CBC 7573595 Baso Auto 0.2 % 02/28/2018 CBC 7934326 Neutrophil Abs 3.32 10e9/L 02/28/2018 CBC 6879230 Lymphocyte Abs 2.55 10e9/L 02/28/2018 CBC 0130859 Monocyte Abs 0.47 10e9/L 02/28/2018 CBC 6552758 Eosinophil Abs 0.05 10e9/L 02/28/2018 CBC 6812125 RDW-SD 40.8 fL 02/28/2018 CBC 4498345 Basophil Abs 0.01 10e9/L 02/28/2018 CHEM 14 2111976 AST 17 U/L 02/28/2018 CHEM 14 5395854 ALT 17 U/L 02/28/2018 CHEM 14 0534280 BUN 20 mg/dL 02/28/2018 CHEM 14 9091135 ALBUMIN 4.1 g/dL 02/28/2018 CHEM 14 9865996 CHLORIDE 97 mmol/L 02/28/2018 CHEM 14 1750295 Bili Total 1.3 mg/dL 02/28/2018 CHEM 14 0000122 ALK PHOS 78 U/L 02/28/2018 CHEM 14 5020886 SODIUM 135 mmol/L 02/28/2018 CHEM 14 8610452 CREATININE 1.09 mg/dL 02/28/2018 CHEM 14 8071253 CALCIUM 9.6 mg/dL 02/28/2018 CHEM 14 4129714 POTASSIUM 3.8 mmol/L 02/28/2018 CHEM 14 8438952 TOTAL PROTEIN 7.3 g/dL 02/28/2018 CHEM 14 7517223 GLUCOSE 349 mg/dL 02/28/2018 CHEM 14 4743133 Bicarbonate 29 mmol/L 02/28/2018 CHEM 14 4497310 AGAP 9 mmol/L 02/28/2018 [place] Spotted Fever Igg/Igm 744041 FEI MT SPOTTED FEVER IGM EIA . 09/05/2017 [place] Spotted Fever Igg/Igm 749557 RMSF, IGM 0.17 index 09/05/2017 [place] Spotted Fever Igg/Igm 237963 FEI MT SPOTTED FEVER IGG EIA FLEX . 09/05/2017 [place] Spotted Fever Igg/Igm 132114 RMSF, IGG SCREEN-FLEX Positive 09/05/2017 Fei Mtn Spot'D Fev Igg 836648 RMSF, IGG -TITER IFA <1:64 11/2016 Ehrlichia Chaffeensis Antibody Igm 768639 EHRLICHIA CHAFFEENSIS IGM < 1:16 09/03/2017 Ehrlichia Chaffeensis Antibody Igg 240248 EHRLICHIA CHAFFEENSIS IGG <1:64 09/03/2017 Lymes Disease Total Antibodies With Western Blot Reflex B. BURGDORFERI, IGG/IGM 0.223 08/30/2017 Lymes Disease Total Antibodies With Western Blot Reflex C-Reactive Protein Qnt Crqnt CRP 0.00 mg/dl 08/27/2017 Sed Rate Ord21 ESR 8 mm/hr 08/27/2017 Comp Metabolic Ukv019 NA 135 mEq/L 08/16/2017 Comp Metabolic Ptk143 K 4.1 mEq/L 08/16/2017 Comp Metabolic Fqp349 CL 98 mEq/L 08/16/2017 Comp Metabolic Fre739 CO2 28.0 mEq/L 08/16/2017 Comp Metabolic Ycv065 ANION GAP 13 08/16/2017 Comp Metabolic Rij905 GLUCOSE 299 mg/dL 08/16/2017 Comp Metabolic Kyq134 Creat 0.9 mg/dL 08/16/2017 Comp Metabolic Ece881 eGFR 90 ml/min/1.73m2 08/16/2017 Comp Metabolic Ksv436 BUN 20 mg/dL 08/16/2017 Comp Metabolic Wfq951 B/C Ratio 21.5 Ratio 08/16/2017 Comp Metabolic Dll759 CALCIUM 9.2 mg/dL 08/16/2017 Comp Metabolic Nkr918 ALK PHOS 84 U/L 08/16/2017 Comp Metabolic Kfr989 AST(SGOT) 19 U/L 08/16/2017 Comp Metabolic Quc877 ALT(SGPT) 24 U/L 08/16/2017 Comp Metabolic Drl496 BILI T 1.1 mg/dL 08/16/2017 Comp Metabolic Trh815 ALBUMIN 4.2 g/dL 08/16/2017 Comp Metabolic Fue219 TPRO 7.2 g/dL 08/16/2017 Comp Metabolic Sga347 GLOB 3.0 g/dL 08/16/2017 Comp Metabolic Fks543 A/G Ratio 1.4 Ratio 08/16/2017 Comp Metabolic Syw764 Osmo 284 mOsmo 08/16/2017 %Hba1C Bpf005 % HbA1c 54603-4 12.5 % 08/16/2017 %Hba1C Gnx487 Gluc Ave 312 mg/dL 08/16/2017 Urine Culture Ucult Preliminary NO Growth Day 1 06/23/2017 Urine Culture Ucult Complete NO Growth Day 2 06/23/2017 C RAP A SC [id number] Strep A Negative 06/08/2017 %Hba1C Vhk982 % HbA1c 82373-2 9.5 % 05/04/2017 %Hba1C Dkd291 Gluc Ave 226 mg/dL 05/04/2017 Tsh Ord6 [...] 31.7 pg 05/04/2017 Cbc With Differential Ord2 Pike% 8.5 % 05/04/2017 Cbc With Differential Ord2 [...] 2.48 K/ul 05/04/2017 Cbc With Differential Ord2 [place] ABS# 0.5 K/ul 05/04/2017 Cbc With Differential Ord2 Eos ABS# 0.1 K/ul 05/04/2017 Cbc With Differential Ord2 Baso ABS# 0.0 K/ul 05/04/2017 Comp Metabolic Fqx379 NA 135 mEq/L 05/04/2017 Comp Metabolic Ltk450 K 4.2 mEq/L 05/04/2017 Comp Metabolic Bal264 CL 99 mEq/L 05/04/2017 Comp Metabolic Cyo335 CO2 26.0 mEq/L 05/04/2017 Comp Metabolic Aja501 ANION GAP 14 05/04/2017 Comp Metabolic Mzj719 GLUCOSE 277 mg/dL 05/04/2017 Comp Metabolic Ewf439 Creat 0.9 mg/dL 05/04/2017 Comp Metabolic Wsz095 eGFR 96 ml/min/1.73m2 05/04/2017 Comp Metabolic Kkh463 BUN 23 mg/dL 05/04/2017 Comp Metabolic Aac518 B/C Ratio 26.1 Ratio 05/04/2017 Comp Metabolic Sgc904 CALCIUM 8.9 mg/dL 05/04/2017 Comp Metabolic Csp042 ALK PHOS 81 U/L 05/04/2017 Comp Metabolic Ebf034 AST(SGOT) 21 U/L 05/04/2017 Comp Metabolic Xuj513 ALT(SGPT) 27 U/L 05/04/2017 Comp Metabolic Syy356 BILI T 1.2 mg/dL 05/04/2017 Comp Metabolic Don431 ALBUMIN 4.0 g/dL 05/04/2017 Comp Metabolic Jqi198 TPRO 6.7 g/dL 05/04/2017 Comp Metabolic Zkl213 GLOB 2.7 g/dL 05/04/2017 Comp Metabolic Pxg104 A/G Ratio 1.5 Ratio 05/04/2017 Comp Metabolic Yri306 Osmo 284 mOsmo 05/04/2017 C A/B FLU [id number] Influenza A Scr Negative 02/16/2017 C A/B FLU [id number] Influenza B Scr Positive 02/16/2017 Cbc With [...] 30.3 pg 05/23/2016 Cbc With Differential Ord2 Pike% 8.8 % 05/23/2016 Cbc With Differential Ord2 [...] 2.07 K/ul 05/23/2016 Cbc With Differential Ord2 Pike ABS# 0.5 K/ul 05/23/2016 Cbc With Differential Ord2 Eos ABS# 0.1 K/ul 05/23/2016 Cbc With Differential Ord2 Baso ABS# 0.0 K/ul 05/23/2016 Lipid Ord30 CHOL 397 mg/dL 05/17/2016 Lipid Ord30 HDL 48.0 mg/dl 05/17/2016 Lipid Ord30 TRIG 578 mg/dL 05/17/2016 Lipid Ord30 LDL Unable to calculate Due to elevated triglycerides mg/dL 05/17/2016 Lipid Ord30 C/HDL 8.3 Ratio 05/17/2016 %Hba1C Vhs806 % HbA1c 29158-5 12.4 % 05/16/2016 %Hba1C Brg856 Gluc Ave 309 mg/dL 05/16/2016 Cbc With [...] 30.4 pg 05/15/2016 Cbc With Differential Ord2 Pike% 7.8 % 05/15/2016 Cbc With Differential Ord2 [...] 2.04 K/ul 05/15/2016 Cbc With Differential Ord2 Pike ABS# 0.5 K/ul 05/15/2016 Cbc With Differential Ord2 Eos ABS# 0.1 K/ul 05/15/2016 Cbc With Differential Ord2 Baso ABS# 0.0 K/ul 05/15/2016 Tsh Ord6 hTSH II 1.70 uIU/mL 05/15/2016 Comp Metabolic Xsw652 NA 135 mEq/L 05/15/2016 Comp Metabolic Xpq510 K 3.9 mEq/L 05/15/2016 Comp Metabolic Plf748 CL 96 mEq/L 05/15/2016 Comp Metabolic Xfl160 CO2 27.0 mEq/L 05/15/2016 Comp Metabolic Xme097 ANION GAP 16 05/15/2016 Comp Metabolic Rkv964 GLUCOSE 183 mg/dL 05/15/2016 Comp Metabolic Pxr518 Creat 1.1 mg/dL 05/15/2016 Comp Metabolic Lmg836 eGFR 71 ml/min/1.73m2 05/15/2016 Comp Metabolic Clq952 BUN 17 mg/dL 05/15/2016 Comp Metabolic Yag204 B/C Ratio 14.9 Ratio 05/15/2016 Comp Metabolic Yaf793 CALCIUM 9.6 mg/dL 05/15/2016 Comp Metabolic Rcr600 ALK PHOS 100 U/L 05/15/2016 Comp Metabolic Iof301 AST(SGOT) 20 U/L 05/15/2016 Comp Metabolic Hzz740 ALT(SGPT) 20 U/L 05/15/2016 Comp Metabolic Kle911 BILI T 1.3 mg/dL 05/15/2016 Comp Metabolic Cye344 ALBUMIN 4.6 g/dL 05/15/2016 Comp Metabolic Bev723 TPRO 8.1 g/dL 05/15/2016 Comp Metabolic Kij175 GLOB 3.5 g/dL 05/15/2016 Comp Metabolic Kia001 A/G Ratio 1.3 Ratio 05/15/2016 Comp Metabolic Amq948 Osmo 276 mOsmo 05/15/2016 Review of Systems [...] of skin Location: face 05/04/2017 patch left gnosticism Full Exam - General 1994 Constitutional general [...] Codes Date URINALYSIS NONAUTO W/O SCOPE CPT-4: 12837 02/17/2019 KETOROLAC TROMETHAMINE INJ CPT-4: J1885 10/21/2018 TRIAMCINOLONE ACET INJ NOS CPT-4: J3301 09/30/2018 THER/PROPH/DIAG INJ SC/IM CPT-4: 82632 09/11/2018 TRIAMCINOLONE ACET INJ NOS CPT-4: J3301 09/11/2018 IMMUNIZATION ADMIN CPT -4: 39194 07/22/2018 FLU VAC NO PRSV 4 MENA 3 YRS+ CPT-4: 84884 07/22/2018 TRIAMCINOLONE ACET INJ NOS CPT-4: J3301 06/28/2018 KETOROLAC TROMETHAMINE INJ CPT-4: J1885 05/02/2018 FLU VAC NO PRSV 4 MENA 3 YRS+ CPT-4: 34225 08/16/2017 IMMUNIZATION ADMIN CPT -4: 05052 08/16/2017 URINALYSIS NONAUTO W/O SCOPE CPT-4: 97253 06/21/2017 TRIAMCINOLONE ACET INJ NOS CPT-4: J3301 05/04/2017 THER/PROPH/DIAG INJ SC/IM CPT-4: 66589 05/04/2017 TRIAMCINOLONE ACET INJ NOS CPT-4: J3301 02/16/2017 ROCEPHIN, PER 250 MG CPT-4: J0696 02/16/2017 ROCEPHIN, PER 250 MG CPT-4: J0696 10/06/2016 URINALYSIS NONAUTO W/O SCOPE CPT-4: 76955 07/18/2016 TRIAMCINOLONE ACET INJ NOS CPT-4: J3301 01/20/2016 Vital Signs Date Vital 02/17/2019 Blood Pressure 1: 120/80 Code : 8480-6 Blood Pressure 2: 102/80 Code: 8480-6 Heart Rate 1: 89 bpm SpO2: 96% 01/13/2019 Blood Pressure 1: 120/70 Code : 8480-6 BMI: 34.2 Code : 32448-6 Heart Rate 1 : 74 bpm Height: 6'2" SpO2: 96% Weight: 266 lbs 12/31/2018 Blood Pressure 1: 122/70 Code : 8480-6 BMI: 34.4 Code : 07248-0 Heart Rate 1 : 90 bpm Height: 6'2" SpO2: 97% Temperature: 36.6 (C) / 97.8 (F) Weight: 268 lbs 12/26/2018 Blood Pressure 1: 118/72 Code : 8480-6 BMI: 34.4 Code : 48557-0 Heart Rate 1 : 82 bpm Height: 6'2" SpO2: 98% Temperature: 36.6 (C) / 97.9 (F) Weight: 268 lbs 11/18/2018 Blood Pressure 1: 120/84 Code : 8480-6 BMI: 33.9 Code : 18294-2 Heart Rate 1 : 77 bpm Height: 6'2" SpO2: 99% Temperature: 36.7 (C) / 98.1 (F) Weight: 264 lbs 11/12/2018 Blood Pressure 1: 138/76 Code : 8480-6 BMI: 33.9 Code : 07230-1 Heart Rate 1 : 91 bpm Height: 6'2" SpO2: 99% Weight: 264 lbs 10/30/2018 Blood Pressure 1: 130/72 Code : 8480-6 BMI: 33.3 Code : 35576-4 Heart Rate 1 : 83 bpm Height: 6'2" SpO2: 95% Temperature: 36.5 (C) / 97.7 (F) Weight: 259 lbs 10/24/2018 Blood Pressure 1: 130/70 Code : 8480-6 Heart Rate 1: 95 bpm Height: 6'2" SpO2: 96% 10/23/2018 Blood Pressure 1: 100/70 Code : 8480-6 Blood Pressure 2: 102/70 Code: 8480-6 BMI: 33.3 Code: 54614-2 Heart Rate 1: 106 bpm Height: 6'2" SpO2: 98% Weight: 259 lbs 10/21/2018 Blood Pressure 1: 140/90 Code : 8480-6 BMI: 32.9 Code : 38256-0 Heart Rate 1 : 96 bpm Height: 6'2" SpO2: 92% Weight: 256 lbs 10/17/2018 Blood Pressure 1: 110/68 Code : 8480-6 BMI: 32.9 Code : 07497-3 Heart Rate 1 : 82 bpm Height: 6'2" SpO2: 97% Weight: 256 lbs 10/14/2018 Blood Pressure 1: 124/70 Code : 8480-6 BMI: 33.6 Code : 70681-3 Heart Rate 1 : 76 bpm Height: 6'2" SpO2: 99% Temperature: 36.3 (C) / 97.3 (F) Weight: 262 lbs 09/30/2018 Blood Pressure 1: 138/82 Code : 8480-6 BMI: 33.6 Code : 72138-1 Heart Rate 1 : 82 bpm Height: 6'2" SpO2: 98% Temperature: 36.3 (C) / 97.3 (F) Weight: 262 lbs 09/09/2018 Blood Pressure 1: 140/80 Code : 8480-6 BMI: 33.0 Code : 18388-3 Heart Rate 1 : 97 bpm Height: 6'2" SpO2: 93% Temperature: 36.8 (C) / 98.2 (F) Weight: 257 lbs 07/22/2018 Blood Pressure 1: 120/78 Code : 8480-6 BMI: 31.6 Code : 26476-5 Heart Rate 1 : 87 bpm Height: 6'2" SpO2: 98% Weight: 246 lbs 07/16/2018 Blood Pressure 1: 132/74 Code : 8480-6 BMI: 31.2 Code : 36692-5 Heart Rate 1 : 90 bpm Height: 6'2" SpO2: 96% Weight: 243 lbs 07/01/2018 Blood Pressure 1: 142/82 Code : 8480-6 BMI: 31.8 Code : 56634-6 Heart Rate 1 : 88 bpm Height: 6'2" SpO2: 98% Weight: 248 lbs 06/28/2018 Blood Pressure 1: 132/76 Code : 8480-6 BMI: 31.8 Code : 18630-5 Heart Rate 1 : 107 bpm Height: 6'2" SpO2: 98% Temperature: 37.9 (C) / 100.3 (F) Weight: 248 lbs 06/18/2018 Blood Pressure 1: 138/82 Code : 8480-6 BMI: 31.8 Code : 22800-2 Heart Rate 1 : 82 bpm Height: 6'2" SpO2: 97% Weight: 248 lbs 06/04/2018 Blood Pressure 1: 128/84 Code : 8480-6 BMI: 33.9 Code : 54707-7 Heart Rate 1 : 86 bpm Height: 6'2" SpO2: 95% Weight: 264 lbs 05/13/2018 Blood Pressure 1: 130/80 Code : 8480-6 BMI: 31.1 Code : 55970-4 Heart Rate 1 : 100 bpm Height: 6'2" SpO2: 94% Weight: 242 lbs 05/02/2018 Blood Pressure 1: 134/84 Code : 8480-6 BMI: 31.2 Code : 39914-4 Heart Rate 1 : 93 bpm Height: 6'2" SpO2: 98% Weight: 243 lbs 04/29/2018 Blood Pressure 1: 142/88 Code : 8480-6 BMI: 31.6 Code : 98917-2 Heart Rate 1 : 96 bpm Height: 6'2" SpO2: 96% Temperature: 36.7 (C) / 98.1 (F) Weight: 246 lbs 03/13/2018 Blood Pressure 1: 120/76 Code : 8480-6 BMI: 30.9 Code : 95060-3 Heart Rate 1 : 112 bpm Height: 6'2" SpO2: 97% Weight: 241 lbs 03/07/2018 Blood Pressure 1: 108/78 Code : 8480-6 BMI: 30.0 Code : 09039-4 Heart Rate 1 : 87 bpm Height: 6'2" SpO2: 98% Weight: 234 lbs 02/28/2018 Blood Pressure 1: 106/74 Code : 8480-6 BMI: 30.0 Code : 78195-3 Heart Rate 1 : 101 bpm Height: 6'2" SpO2: 98% Temperature: 36.4 (C) / 97.5 (F) Weight: 234 lbs 02/13/2018 Blood Pressure 1: 110/78 Code : 8480-6 BMI: 30.0 Code : 13182-4 Heart Rate 1 : 106 bpm Height: 6'2" SpO2: 98% Weight: 234 lbs 01/29/2018 Blood Pressure 1: 106/68 Code : 8480-6 BMI: 30.0 Code : 62973-1 Heart Rate 1 : 108 bpm Height: 6'2" SpO2: 98% Weight: 234 lbs 08/27/2017 Blood Pressure 1: 134/76 Code : 8480-6 Heart Rate 1: 98 bpm Height: SpO2: 97% Weight: 08/16/2017 Blood Pressure 1: 128/80 Code : 8480-6 BMI: 32.0 Code : 72709-4 Heart Rate 1 : 94 bpm Height: [...] Code : 8480-6 BMI: 31.8 Code : 90263-9 Heart Rate 1 : 102 bpm Height: [...] Weight: 244 lbs 03/01/2017 Blood Pressure 1: 115 Code : 8480-6 Heart Rate 1: 93 bpm Respiratory Rate : 16 bpm SpO2: 97% Temperature: 37.1 (C) / 98.7 (F) Weight: 242 lbs 02/16/2017 Blood Pressure 1: 122/72 Code : 8480-6 BMI: 31.8 Code : 60417-6 Heart Rate 1 : 85 bpm Height: 6'2" SpO2: 96% Temperature: 36.6 (C) / 97.9 (F) Weight: 248 lbs 02/12/2017 Blood Pressure 1: 126/76 Code : 8480-6 BMI: 31.8 Code : 45866-6 Heart Rate 1 : 106 bpm Height: 6'2" SpO2: 91% Weight: 248 lbs 02/05/2017 Blood Pressure 1: 146/86 Code : 8480-6 BMI: 31.9 Code : 19328-5 Heart Rate 1 : 98 bpm Height: 6'2" SpO2: 87% Temperature: 36.7 (C) / 98.0 (F) Weight: 248 lbs 8 oz 01/29/2017 Blood Pressure 1: 132/84 Code : 8480-6 BMI: 31.8 Code : 20910-0 Heart Rate 1 : 83 bpm Height: 6'2" SpO2: 97% Weight: 248 lbs 10/13/2016 Blood Pressure 1: 128/72 Code : 8480-6 Heart Rate 1: 86 bpm SpO2: 94% 10/09/2016 Blood Pressure 1: 128/68 Code : 8480-6 Heart Rate 1: 136 bpm SpO2: 94% Temperature: 36.8 (C) / 98.2 (F) 10/06/2016 Blood Pressure 1: 140/80 Code : 8480-6 BMI: 32.1 Code : 11670-5 Heart Rate 1 : 94 bpm Height: 6'2" SpO2: 95% Weight: 250 lbs 07/18/2016 Blood Pressure 1: 128/86 Code : 8480-6 BMI: 32.1 Code : 31131-7 Heart Rate 1 : 89 bpm Height: 6'2" SpO2: 96% Weight: 250 lbs 06/22/2016 Blood Pressure 1: 118/70 Code : 8480-6 BMI: 32.1 Code : 14400-7 Heart Rate 1 : 70 bpm Height: 6'2" SpO2: 97% Weight: 250 lbs 05/23/2016 Blood Pressure 1: 128/80 Code : 8480-6 BMI: 32.1 Code : 91127-0 Heart Rate 1 : 76 bpm Height: 6'2" SpO2: 98% Weight: 250 lbs 05/15/2016 Blood Pressure 1: 110/90 Code : 8480-6 BMI: 31.3 Code : 14405-7 Heart Rate 1 : 111 bpm Height: 6'2" SpO2: 97% Temperature: 36.6 (C) / 97.8 (F) Weight: 244 lbs 01/20/2016 Blood Pressure 1: 128/76 Code : 8480-6 BMI: 33.0 Code : 79270-1 Heart Rate 1 : 103 bpm Height: [...] data Encounters Encounter Performer Location Codes Date () 05286 EST. PATIENT, LEVEL III Diagnosis: Hypotension due to drugs[ICD10: I95.2] Diagnosis: Other fatigue[ICD10: R53.83] Marcela Ha MD, [facility] CPT-4: 18693 02/17/2019 ([id number]) 05514 EST. 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 PATIENT, LEVEL IV Diagnosis: Type 2 diabetes mellitus with hyperglycemia[ICD10: E11.65] Diagnosis: Epigastric pain[ICD10: R10.13] Diagnosis: Pain in joints of right hand[ICD10: M25.541] Diagnosis: Shortness of breath[ICD10: R06.02] Marcela Ha MD, [facility] CPT-4: 62692 12/31/2018 79033 EST. PATIENT, LEVEL III Diagnosis: Other chest pain[ICD10: R07.89] Diagnosis: Cough[ICD10: R05] Madeline Ha MD, [facility] CPT-4: 28556 12/26/2018 ([id number]) 68191 EST. PATIENT, LEVEL III Diagnosis: Cough[ICD10: R05] Melida Ha MD, [facility] CPT-4: 15301 11/18/2018 ([id number]) 63551 EST. PATIENT, LEVEL III Diagnosis: Cough[ICD10: R05] Diagnosis: Pneumonia due to other Gram-negative bacteria[ICD10: J15.6] Marcela Ha MD, [facility] CPT-4: 33197 11/12/2018 ([id number]) 24045 EST. PATIENT, LEVEL III Diagnosis: Pneumonia due to other Gram-negative bacteria[ICD10: J15.6] Diagnosis: Cough[ICD10: R05] Melida Ha MD, [facility] CPT-4: 80678 10/30/2018 ([id number]) 61258 EST. PATIENT, LEVEL II Diagnosis: Pain in joints of right hand[ICD10: M25.541] Diagnosis: Trigger finger, right middle finger[ICD10: M65.331] Marcela Ha MD, [facility] CPT-4: 55039 10/24/2018 ([id number]) 17456 EST. PATIENT, LEVEL IV Diagnosis: Essential (primary) hypertension[ICD10: I10] Diagnosis: Type 2 diabetes mellitus with foot ulcer[ICD10: E11.621] Melida Ha MD, [facility] CPT-4: 66608 10/23/2018 ([id number]) 81235 EST. PATIENT, LEVEL III Diagnosis: Cellulitis of right finger[ICD10: L03.011] Diagnosis: Type 2 diabetes mellitus with foot ulcer[ICD10: E11.621] Diagnosis: Pain in right hand[ICD10: M79.641] Melida Ha MD, [facility] CPT-4: 06885 10/21/2018 11546 EST. PATIENT, LEVEL III Diagnosis: Spontaneous ecchymoses[ICD10: R23.3] Diagnosis: Cellulitis of right lower limb[ICD10: L03.115] Diagnosis: Cellulitis of left lower limb[ICD10: L03.116] Madeline Ha MD, [facility] CPT-4: 26026 10/17/2018 ([id number]) 31164 EST. PATIENT, LEVEL III Diagnosis: Cough[ICD10: R05] Diagnosis: Acute bronchitis, unspecified[ICD10: J20.9] Melida Ha MD, [facility] CPT-4: 17841 10/14/2018 67600 EST. PATIENT, LEVEL III Diagnosis: Acute laryngopharyngitis[ICD10: J06.0] Diagnosis: Cough[ICD10: R05] Madeline Ha MD, [facility] CPT-4: 00211 09/30/2018 ([id number]) 69386 EST. PATIENT, LEVEL III Diagnosis: Acute recurrent maxillary sinusitis[ICD10: J01.01] Diagnosis: Cough[ICD10: R05] Diagnosis: Type 2 diabetes mellitus with hyperglycemia[ICD10: E11.65] Marcela Ha MD, [facility] CPT-4: 36160 09/09/2018 ([id number]) 25531 EST. PATIENT, LEVEL IV Diagnosis: Essential (primary) hypertension[ICD10: I10] Diagnosis: Mixed hyperlipidemia[ICD10: E78.2] Diagnosis: Bipolar disorder, current episode depressed, moderate[ICD10: F31.32] Diagnosis: Type 2 diabetes mellitus with other specified complication[ICD10: E11.69] Melida Ha MD, [facility] CPT-4: 13089 2017 ([id number]) 86966 EST. PATIENT, LEVEL III Diagnosis: Insomnia due to medical condition[ICD10: G47.01] Marcela Ha MD, [facility] CPT-4: 43067 07/16/2018 ([id number]) Miscellaneous no charge Diagnosis: Cough[ICD10: R05] Madeline Ha MD, [facility] CPT-4: 14454 07/01/2018 04621 EST. PATIENT, LEVEL III Diagnosis: Cough[ICD10: R05] Diagnosis: Acute laryngopharyngitis[ICD10: J06.0] Diagnosis: Other allergic rhinitis[ICD10: J30.89] Madeline Ha MD, [facility] CPT-4: 14162 06/28/2018 ([id number]) 45705 EST. PATIENT, LEVEL IV Diagnosis: Type 2 diabetes mellitus with hyperglycemia[ICD10: E11.65] Diagnosis: Essential (primary) hypertension[ICD10: I10] Melida Ha MD, [facility] CPT-4: 08364 06/18/2018 ([id number]) 78274 EST. PATIENT, LEVEL IV Diagnosis: Type 2 diabetes mellitus with hyperglycemia[ICD10: E11.65] Diagnosis: Essential (primary) hypertension[ICD10: I10] Diagnosis: Localized edema[ICD10: R60.0] Melida Ha MD, [facility] CPT- 4: 73085 06/04/2018 ([id number]) 06281 EST. PATIENT, LEVEL III Diagnosis: Type 2 diabetes mellitus with hyperglycemia[ICD10: E11.65] Diagnosis: Myalgia[ICD10: M79.1] Diagnosis: Pain in right hip[ICD10: M25.551] Diagnosis: Pain in left hip[ICD10: M25.552] Marcela Ha MD, [facility] CPT-4: 63864 05/13/2018 ([id number]) 34927 EST. PATIENT, LEVEL III Diagnosis: Myalgia[ICD10: M79.1] Diagnosis: Pain in right hip[ICD10: M25.551] Diagnosis: Pain in left hip[ICD10: M25.552] Marcela Ha MD, [facility] CPT-4: 28601 05/02/2018 ([id number]) 56635 EST. PATIENT, LEVEL IV Diagnosis: Essential (primary) hypertension[ICD10: I10] Diagnosis: Type 2 diabetes mellitus with hyperglycemia[ICD10: E11.65] Diagnosis: Major depressive disorder, single episode, moderate[ICD10: F32.1] Diagnosis: Myalgia[ICD10: M79.1] Marcela Ha MD, [facility] CPT-4: 57295 04/29/2018 ([id number]) 96782 EST. PATIENT, LEVEL IV Diagnosis: Type 2 diabetes mellitus with hyperglycemia[ICD10: E11.65] Diagnosis: Essential (primary) hypertension[ICD10: I10] Diagnosis: Major depressive disorder, single episode, moderate[ICD10: F32.1] Melida Ha MD, [facility] CPT-4: 86645 03/13/2018 ([id number]) 29495 EST. PATIENT, LEVEL III Diagnosis: Type 2 diabetes mellitus with hyperglycemia[ICD10: E11.65] Diagnosis: Bipolar disorder, current episode depressed, moderate[ICD10: F31.32] Diagnosis: Orthostatic hypotension[ICD10: I95.1] Marcela Ha MD, [facility] CPT-4: 64532 03/07/2018 ([id number]) 69537 EST. PATIENT, LEVEL IV Diagnosis: Type 2 diabetes mellitus with hyperglycemia[ICD10: E11.65] Diagnosis: Major depressive disorder, single episode, moderate[ICD10: F32.1] Diagnosis: Orthostatic hypotension[ICD10: I95.1] Diagnosis: Other fatigue[ICD10: R53.83] Marcela Ha MD, [facility] CPT-4: 50127 02/28/2018 25707 EST. PATIENT, LEVEL IV Diagnosis: Other fatigue[ICD10: R53.83] Diagnosis: Other malaise[ICD10: R53.81] Diagnosis: Gastro-esophageal reflux disease without esophagitis[ICD10: K21.9] Madeline Ha MD, [facility] CPT-4: 47127 02/13/2018 ([id number]) 53255 EST. PATIENT, LEVEL IV Diagnosis: Type 2 diabetes mellitus with foot ulcer[ICD10: E11.621] Diagnosis: Essential (primary) hypertension[ICD10: I10] Diagnosis: Gastro-esophageal reflux disease without esophagitis[ICD10: K21.9] Marcela Ha MD, [facility] CPT-4: 92015 01/29/2018 72267 EST. PATIENT, LEVEL III Diagnosis: Other malaise[ICD10: R53.81] Diagnosis: Other fatigue[ICD10: R53.83] Diagnosis: Pain in right shoulder[ICD10: M25.511] Diagnosis: Pain in left shoulder[ICD10: M25.512] Madeline Ha MD, [facility] CPT-4: 31077 08/27/2017 ([id number]) 63405 EST. PATIENT, LEVEL IV Diagnosis: Essential (primary) hypertension[ICD10: I10] Diagnosis: Type 2 diabetes mellitus with hyperglycemia[ICD10: E11.65] Diagnosis: VACCIN FOR INFLUENZA[ICD10: Z23] Melida Ha MD, [facility] CPT-4: 40324 08/16/2017 23529 EST. PATIENT, LEVEL III Diagnosis: Zoster without complications[ICD10: B02.9] Madeline Ha MD, [facility] CPT-4: 29896 07/26/2017 ([id number]) 14607 EST. PATIENT, LEVEL III Diagnosis: Cellulitis of right lower limb[ICD10: L03.115] Marcela Ha MD, [facility] CPT-4: 93649 07/03/2017 85124 EST. PATIENT, LEVEL II Diagnosis: Laceration without foreign body of left forearm, initial encounter[ ICD10: S51.812A] Marcela Ha MD, [facility] CPT-4: 54330 06/29/2017 ([id number]) 76908 EST. PATIENT, LEVEL III Diagnosis: Cellulitis of right lower limb[ICD10: L03.115] Diagnosis: Type 2 diabetes mellitus with foot ulcer[ICD10: E11.621] Marcela Ha MD , [facility] CPT-4: 51637 06/18/2017 ([id number]) 94004 EST. PATIENT, LEVEL IV Diagnosis: Cellulitis of right lower limb[ICD10: L03.115] Diagnosis: Acute laryngopharyngitis[ICD10: J06.0] Diagnosis: Gastro-esophageal reflux disease without esophagitis[ICD10: K21.9] Marcela Ha MD, [facility] CPT-4: 03181 06/07/2017 ([id number]) 93206 EST. PATIENT, LEVEL III Diagnosis: Type 2 diabetes mellitus with hyperglycemia[ICD10: E11.65] Diagnosis: Insect bite (nonvenomous) of abdominal wall, initial encounter[ICD10 : S30.861A] Marcela Ha MD, [facility] CPT-4: 35004 05/17/2017 ([id number]) 60256 EST. PATIENT, LEVEL III Diagnosis: Allergic contact dermatitis due to plants, except food[ICD10: L23.7] Melida Ha MD, [facility] CPT-4: 41986 05/04/2017 ([id number]) 00920 EST. PATIENT, LEVEL III Diagnosis: Essential (primary) hypertension[ICD10: I10] Marcela Ha MD, [facility] CPT-4: 20121 03/15/2017 ([id number]) 59624 EST. PATIENT, LEVEL III Diagnosis: Cough[ICD10: R05] Diagnosis: Essential (primary) hypertension[ICD10: I10] Marcela Ha MD, [facility] CPT-4: 08659 03/01/2017 ([id number]) 11708 EST. PATIENT, LEVEL III Diagnosis: Cough[ICD10: R05] Diagnosis: Nasal congestion[ICD10: R09.81] Diagnosis: Acute recurrent maxillary sinusitis[ICD10: J01.01] Marcela Ha MD, [facility] CPT-4: 64870 02/16/2017 ([id number]) 10611 EST. PATIENT, LEVEL III Diagnosis: Type 2 diabetes mellitus with hyperglycemia[ICD10: E11.65] Marcela Ha MD, [facility] CPT-4: 37887 02/12/2017 ([id number]) 75671 EST. PATIENT, LEVEL IV Diagnosis: Type 2 diabetes mellitus with hyperglycemia[ICD10: E11.65] Diagnosis: Muscle weakness (generalized)[ICD10: M62.81] Diagnosis: Disorientation, unspecified[ICD10: R41.0] Marcela Ha MD [facility] CPT-4: 23750 02/05/2017 ([id number]) Patient admitted to the hospital from clinic (NO CHARGE) Diagnosis: Type 2 diabetes mellitus with hyperglycemia[ICD10: E11.65] Diagnosis: Disorientation, unspecified[ICD10: R41.0] Diagnosis: Muscle weakness (generalized)[ICD10: M62.81] Marcela Ha MD [facility] CPT-4: 01073W 01/29/2017 ([id number]) Miscellaneous no charge Diagnosis: Cellulitis of right lower limb[ICD10: L03.115] Marcela Ha MD [facility] CPT-4: 53825 10/13/2016 ([id number]) Miscellaneous no charge Diagnosis: Type 2 diabetes mellitus with foot ulcer[ICD10: E11.621] Diagnosis: Pain in right foot[ICD10: M79.671] Marcela Ha MD, [facility] CPT-4: 18278 10/09/2016 34640 EST. PATIENT, LEVEL II Diagnosis: Cellulitis of right lower limb[ICD10: L03.115] Marcela Ha MD [facility] CPT-4: 23853 10/06/2016 ([id number]) 91196 EST. PATIENT, LEVEL IV Diagnosis: Low back pain[ICD10: M54.5] Diagnosis: Other deformities of toe(s) (acquired), left foot[ICD10: M20.5X2] Diagnosis: Type 2 diabetes mellitus with foot ulcer[ICD10: E11.621] Marcela Ha MD [facility] CPT-4: 13082 07/18/2016 ([id number]) 94143 EST. PATIENT, LEVEL III Diagnosis: Type 2 diabetes mellitus with hyperglycemia[ICD10: E11.65] Marcela Ha MD [facility] CPT-4: 52713 06/22/2016 ([id number]) 75849 EST. PATIENT, LEVEL IV Diagnosis: Type 2 diabetes mellitus with hyperglycemia[ICD10: E11.65] Diagnosis: Mixed hyperlipidemia[ICD10: E78.2] Diagnosis: Other hemoglobinopathies[ICD10: D58.2] [facility] CPT-[facility]: 00744 05/23/2016 ([id number]) 35605 EST. PATIENT, LEVEL IV Diagnosis: Type 2 diabetes mellitus with other specified complication[ICD10: E11.69] Diagnosis: Dehydration[ICD10: E86.0] [facility] CPT-4: 49827 05/15/2016 ([id number]) OFFICE VISIT, NEW - LEVEL 3 Diagnosis: Allergic contact dermatitis due to plants, except food[ICD10: L23.7] [facility] CPT-4: 29450 01/20/2016 Plan of Care Planned Activity Notes Codes Status Date Visit Plan: Orthostasis -decrease coreg -monitor symptoms and follow up in 10 days- sooner if needed Fatigue-check labs 02/17/2019 Appointment: Marcela Oshea WPtel: [address] [place], [place] [phone] (30 min) Complex 02/17/2019 Patient Education: Patient Medication Summary Completed 02/17/2019 Appointment: Marcela Oshea WPtel: [address] [place], [place] [phone] (30 min) Complex 01/14/2019 Visit Plan: Hypertension [...] Summary Completed 01/13/2019 Appointment: Marcela Oshea WPtel: [address] [place], [place] [phone] (30 min) Complex 01/10/2019 Visit Plan: Epigastric pain -start protonix daily- monitor symptoms Chest pain -work up negative done last week with Madeline-recommend appt with Dr Brennan Joint pain-check inflammation makers DM-check Hgb a1c 12/31/2018 Appointment: Marcela Oshea WPtel: [phone] [phone] (15 min) Moderate 12/31/2018 Patient Education: Patient Medication Summary Completed 12/31/2018 Visit Plan: chest pain - EKG and cardiac enzymes OK - discussed with Dr. Ha - will treat for pneumonia - pt is to notify clinic if symptoms do not improve, if they worsen, or with any changes questions, or concerns. 12/26/2018 Appointment: Madeline Kennedy WPtel: [phone] [phone] (30 min) Complex 12/26/2018 Patient Education: Patient Medication Summary Completed 12/26/2018 Referral: Andrew Cross Patient informed. Referral info faxed. Completed Visit Plan: cough - improved - continue with inhalers - continue with symbicort - rx for proair for PRN use when pt is feelign short of breath with activity. 11/18/2018 Appointment: Melida Ha WPtel: [phone] (15 min) Moderate 11/18/2018 Patient [...] verbalized understanding of plan. 11/12/2018 Appointment: Marcela Osheal: [facility]5 [id number] (30 min) Complex 11/12/2018 Patient Education: Patient Medication Summary Completed 11/12/2018 Patient Education: Kristancort - 18-64 - eCoshaniqua Completed 11/12/2018 Care Plan: Referral Order SNOMED-CT : [id number] Pending 11/12/2018 Referral: Niko Mantilla Referral Completed 11/04/2018 Visit Plan: Pneumonia, cough - recent diagnosis of Moraxella Cattharalis - with sensitivity to levaquin - will give 2 wks of levaquin since he had improvement but no full resolution of symptoms. 10/30/2018 Appointment: Melida Ha WPtel: [facility]5 [facility] 30 min appointments only in [...] for evaluation 10/24/2018 Appointment: Marcela Oshea WPtel: [facility]5 [id number] (30 min) Complex 10/24/2018 Patient Education: Patient Medication Summary Completed 10/24/2018 Care Plan: Referral Order SNOMED-CT : [id number] Pending 10/24/2018 Visit Plan: Hypotension - discussed [...] less controlled. 10/23/2018 Appointment: [facility] Ha WPtel: [id number] [place] (15 min) Moderate 10/23/2018 Patient Education: [...] plan. 10/21/2018 App[facility]ment[phone] [place] (30 min) Complex 10/21/2018 Patient [...] discharge. 10/17/2018 Appointment: Madeline Kennedy WPtel: [phone] [phone] (15 min) Moderate 10/17/2018 Patient Education: Patient [...] worsen. 10/14/2018 Appointment: Marcela Oshea WPtel: [phone] [phone] [place] (15 min) Moderate 10/14/2018 Patient Education: Patient Medication Summary Completed 10/14/2018 Care Plan: CHEST X-RAY 2VW FRONTAL&LATL LOINC : 76440-8 Pending 10/14/2018 Visit Plan: URI - Pt [...] spray. 09/30/2018 Appointment: Madeline Kennedy WPtel: [phone] [facility] (15 min) Moderate 09/30/2018 [...] Hgb A1C 09/09/2018 Appointment: Marcela Oshea WPtel: [facility]5 [phone] (15 min) Moderate 09/09/2018 Patient Education: Patient Medication Summary Completed 09/09/2018 Patient Education: Patient Medication Summary Completed 09/06/2018 Patient Education: Cholesterol Management Completed 09/06/2018 Care Plan: Comp Metabolic Pending 09/06/2018 Care Plan: Cbc With Differential Pending 09/06/2018 Care Plan: %Hba1C LOINC : 78861-0 Pending 09/06/2018 Care Plan: Tsh Pending 09/06/2018 Care Plan: Lipid Pending 09/06/2018 Appointment: Marcela Oshea WPtel: [facility]5 [phone] (15 min) Moderate 08/26/2018 Appointment: Marcela Oshea WPtel: [address] [place], [place] [phone] (15 min) Moderate 08/23/2018 Visit Plan: Hypertension [...] in clinic. 07/22/2018 Appointment: Melida Ha WPtel: [facility]5 [facility] (15 min) Moderate 07/22/2018 Patient [...] time insomnia. 07/16/2018 Appointment: Marcela Oshea WPtel: [facility]1 [phone] (30 min) Complex 07/16/2018 Patient Education: Patient Medication Summary Completed 07/16/2018 Visit Plan: cough - improved - notify clinic if symptoms do not completely resolve, or with any questions or concerns. 07/01/2018 Appointment: [phone] (15 min) Moderate 07/01/2018 Patient [...] allergy spray. 06/28/2018 Appointment: Madeline Kennedy WPtel: [phone] [facility] (15 min) Moderate 06/28/2018 [...] at home. 06/18/2018 Appointment: [phone] (15 min) Moderate 06/18/2018 Patient Education: Patient [...] swelling improves. 06/04/2018 Appointment: Melida Ha WPtel: [facility]6 [facility] (15 min) Moderate 06/04/2018 Patient Education: [...] allow for greater blood glucose control. Joint qapp-vplhpdmx-nfcrqbx- symptoms have improved -stop meloxicam due to upset stomach-call if symptoms return 05/13/2018 Appointment: Marcela Oshea WPtel: [phone] [phone] (30 min) Complex 05/13/2018 Patient Education: Patient Medication Summary Completed 05/13/2018 Visit Plan: Bilateral hip mkmm-zesasypa-wouvzmk IM injection administered today for c/o continued myalgia/arthralgia. Patient to start taking Meloxicam 15mg PO daily. Advised to return to clinic if symptoms do not improve. 05/02/2018 Appointment: Marcela Oshea WPtel: [phone] [phone] (30 min) Complex 05/02/2018 [...] readings at home. Diabetes Mellitus -check labs Sdajzprc-cunauoq-bogu bite-rx for doxycycline-follow up in 2 weeks 04/29/2018 Appointment: Marcela Oshea WPtel: [phone] [phone] [place] (15 min) Moderate 04/29/2018 Patient Education: Patient Medication Summary Completed 04/29/2018 Appointment: Melida Ha WPtel: [phone] [facility] [place] (15 min) Moderate 04/15/2018 Appointment: Marcela Oshea WPtel: [phone] [phone] [place] (30 min) Complex 03/21/2018 Visit Plan: [...] cymbalta 03/13/2018 Appointment: Melida Ha WPtel: [phone] [facility] [place] (30 min) Complex 03/13/2018 Patient Education: Patient Medication Summary Completed 03/13/2018 Visit Plan: DM-continue same medications-monitor blood sugars routinely as directed -rx for new glucometer and test strips provided Bipolar-currently depressed-patient start on vraylar-follow up in 2 weeks, sooner if needed. Patient and verbalied understanding of plan. Hypotension- stay off losartan 03/07/2018 Appointment: Marcela Oshea WPtel: [facility]3 [phone] (30 min) Complex 03/07/2018 Patient Education: Patient Medication Summary Completed 03/07/2018 Appointment: Melida Ha WPtel: [facility]6 [facility] (15 min) Moderate 03/04/2018 Visit [...] patient. 02/28/2018 Appointment: [phone] (30 min) Complex 02/28/2018 Patient [...] improving. 02/13/2018 Appointment: Mad[facility] Kennedy [facility]el[phone] (15 min) Moderate 02/13/2018 Patient Education: Patient Medication Summary Completed 02/13/2018 Referral: uSn Glynn Patient informed. Referral info faxed. Completed Visit Plan: DM-weight loss-not checking blood sugars- patient sent for labs today HTN-low qypaw-wibixyx-busdh labs Callus of foot and fissue of [...] improving. 01/29/2018 Appointment: Marcel[facility]el[phone] (30 min) Complex 01/29/2018 Patient Education: Patient Medication Summary Completed 01/29/2018 Care Plan: Comp Metabolic Cancelled 01/29/2018 Care Plan: Cbc With Differential Cancelled 01/29/2018 Care Plan: %Hba1C LOINC : 50200-3 Cancelled 01/29/2018 Care Plan: Referral Order SNOMED-CT : [id number] Cancelled 01/29/2018 Visit Plan: Fatigue, malaise, joint [...] concerns. 08/27/2017 Appointment: Mad[facility] Kennedy [facility]el[phone] (15 min) Moderate 08/27/2017 Patient [...] - 08/16/2017 Appointment: Melida Ha WPtel: [phone] [facility] (30 min) Complex 08/16/2017 Patient Education: Patient Medication Summary Completed 08/16/2017 Patient Education: Obesity Completed 08/16/2017 Appointment: Madeline Kennedy WPtel: [phone] [phone] (30 min) Complex 08/07/2017 [...] Madeline Kennedy WPtel: [phone] [facility] [place] (15 min) Moderate 07/26/2017 Patient Education: Patient Medication Summary Completed 07/26/2017 Visit Plan: Cellulitis right foot-cultured today in the office-home health to reapply wound vac--appt with wound care on to evaluate for debridement- 07/03/2017 Appointment: Marcela Oshea WPtel: [phone] [phone] [place] (30 min) Complex 07/03/2017 Patient Education: Patient Medication Summary Completed 07/03/2017 Visit Plan: Abrasion left arm - Pt was instructed to keep the wound clean, wash with antibacterial soap, use triple antibiotic ointment, call if redness, pustular drainage, or any other acute concerns. 06/29/2017 Appointment: Marcela Oshea WPtel: [address] [place], [place] [phone] (15 min) Moderate 06/29/2017 Patient Education: Patient [...] of plan. 06/18/2017 Appointment: Marcela Oshea WPtel: [facility]4 [place] [phone] (15 min) Moderate 06/18/2017 Patient Education: Patient [...] diet-start prilosec 06/07/2017 Appointment: Marcela Oshea WPtel: [address] [place], [place] [phone] (10 min) Simple 06/07/2017 Patient Education: Patient [...] bite-continue doxycycline 05/17/2017 Appointment: Marcela Oshea WPtel: [phone] [phone] (30 min) Complex 05/17/2017 Patient Education: Patient [...] anai edge called into [facility]. 05/04/2017 Appointment: Marcela Oshea WPtel: [address] [place], [place] [phone] (30 min) Complex 05/04/2017 Patient Education: Patient [...] home. Cough-resolved 03/15/2017 Appointment: Marcela Oshea WPtel: [phone] (15 min) Moderate 03/15/2017 Patient Education: Patient Medication Summary Completed 03/15/2017 Appointment: Marcela Oshea WPtel: [facility]6 [phone] (30 min) Complex 03/12/2017 Visit Plan: Feng [...] discussed 02/16/2017 Appointment: Marcela Oshea WPtel: [phone] (15 min) Moderate 02/16/2017 Patient Education: [...] starting to become less controlled. 02/12/2017 Appointment: Mracela Oshea WPtel: [address] [place] [phone] (30 min) Complex 02/12/2017 Patient Education: Patient Medication Summary Completed 02/12/2017 Appointment: Marcela Oshea WPtel: [address] [place] [phone] (30 min) Complex 02/06/2017 Visit Plan: Diabetes [...] will consider 02/05/2017 Appointment: Marcela Oshea WPtel: [facility]5 [phone] [place] (30 min) Complex 02/05/2017 Patient Education: Patient Medication Summary Completed 02/05/2017 Appointment: Marcela Oshea WPtel: [facility]5 [phone] [place] (30 min) Complex 01/30/2017 Visit Plan: Acute confusion-uncontrolled diabetes- chronically noncompliant with treatment and stopped his insulin several months ago-r/o stroke vs DKA-Dr Ha in to evaluate patient-plan to admit for further work up and treatment-patient's called and she transported him to the hospital 01/29/2017 Appointment: Marcela Oshea WPtel: [facility]4 [phone] [place] (30 min) Complex 01/29/2017 Patient Education: Patient Medication Summary Completed 01/29/2017 Patient Education: Obesity Completed 01/29/2017 Visit Plan: Right foot pain-MRI shows foreign body-appt with Dr Grewal for evaluation on Sunday. 10/13/2016 Appointment: Marcela Oshea WPtel: [facility]5 [phone] [place] (15 min) Moderate 10/13/2016 Patient Education: Patient Medication Summary Completed 10/13/2016 Appointment: Marcela Oshea WPtel: [facility]5 [phone] [place] (30 min) Complex 10/12/2016 Visit Plan: Right foot uuhn-vsxqqznp-gmcdz washer dropped on foot-xray negative but pain continues to increase-recommend MRI of foot for further evaluation-refer to wound care for lesions on right foot, patient has diabetes and history of osteomyelitis-culture obtained today-continue oral abx- follow up in the office on , sooner if needed 10/09/2016 Visit Plan: Right foot wmnc-woylydhn-zsocp washer dropped on foot-xray negative but pain continues to increase-recommend MRI of foot for further evaluation-refer to wound care for lesions on right foot, patient has diabetes and history of osteomyelitis-culture obtained today-continue oral abx- follow up in the office on , sooner if needed 10/09/2016 Visit Plan: Right foot vndp-atvzljga-oxadg washer dropped on foot-xray negative but pain continues to increase-recommend MRI of foot for further evaluation-refer to wound care for lesions on right foot, patient has diabetes and history of osteomyelitis-culture obtained today-continue oral abx- follow up in the office on , sooner if needed 10/09/2016 Appointment: Marcela Oshea WPtel: [address] [place], [place] [phone] (30 min) Complex 10/09/2016 Patient Education: Patient Medication Summary Completed 10/09/2016 Visit Plan: Cellulitis - continue with oral antibiotics as previously directed, return to clinic as previously directed, call for acute change in symptoms, worsening redness, warmth, discharge. 10/06/2016 Appointment: Marcela Oshea WPtel: [address] [place], [place] [phone] (10 min) Simple 10/06/2016 Patient Education: Patient Medication Summary Completed 10/06/2016 Appointment: Marcela Oshea WPtel: [address] [place], [place] [phone] (30 min) Complex 08/24/2016 Referral: Sun Glynn Referral Completed 07/21/2016 Visit Plan: Low back pain- history of spinal fusion- patient for xray lumbar spine-RX sent to [facility] pharmacy and instructed on use-topical voltaren samples provided and instructed on use. Ok to use tylenol as needed as well. The patient is to call the office if the pain is worsening or does not improve. Pressure ulcer left 4th toe-refer to Dr Glynn for evaluation 07/18/2016 Appointment: Marcela Oshea WPtel: [facility]8 [phone] (30 min) Complex 07/18/2016 Patient Education: Patient Medication Summary Completed 07/18/2016 Patient Education: Obesity Completed 07/18/2016 Care Plan: Referral Order SNOMED-CT : [id number] Cancelled 07/18/2016 Visit Plan: Diabetes Mellitus - [...] control. 06/22/2016 Appointment: Marcela Oshea WPtel: [phone] [phone] (30 min) Complex 06/22/2016 [...] today 05/23/2016 Appointment: Marcela Oshea WPtel: [phone] [phone] (30 min) Complex 05/23/2016 [...] of plan. 05/15/2016 Appointment: Marcela Oshea WPtel: [phone] (15 min) Moderate 05/15/2016 Patient [...] blue goo called into [facility]. xray lumbar spine flexeril as needed voltaren gel ulcer left 4th toe-refer to [employer] . Low back pain- history of spinal fusion-patient for xray lumbar spine-RX sent to [facility] pharmacy and instructed on use-topical voltaren [...] for fracture from injury . Right foot peuk-ismwwzuo-llihc washer dropped on foot-xray negative but pain [...] for fracture from injury . Right foot mpeo-ffiwpvgk-ujuuk washer dropped on foot-xray negative but pain [...] for fracture from injury . Right foot jzmn-fgxlvspx-pszrq washer dropped on foot-xray negative but pain [...] if needed Fatigue-check labs . Bilateral hip ncjm-brcnpkbt-qxhwpzo IM injection administered today for c/o continued myalgia/arthralgia. Patient to start taking Meloxicam 15mg PO daily. Advised to return to clinic if symptoms do not improve. . DM-weight loss-not checking blood sugars-patient sent for labs today HTN-low acinv-cszscpn-hxdnp labs Callus of foot and fissue of [...] readings are starting to become less controlled. Ffrrkkscc-ohplgzsn-goqobfoj to monitor Generalized weakness-refer for PT-patient refuses [...] allow for greater blood glucose control. Joint plcn-gfatsjqs-kpkoqed-symptoms have improved -stop meloxicam due to upset [...] readings at home. Diabetes Mellitus -check labs Tybjshdk-gjrstni-svnw bite-rx for doxycycline-follow up in 2 weeks [...]
--- OUTSIDE RECORDS SUMMARY | 2019-03-10 10:16 | XMS REPORT | CCD ---
Author Author Madeline Kennedy MD, [facility] Address [address] [place] [address] Phone Care Team Providers Care Secretary Of Police Name Role Phone PP Unavailable CCM Unavailable Summary Purpose Interface Exchange Insurance Providers Payer name Policy type / Coverage type Covered constitution party ID Effective Begin Date Effective End Date Jerome PlasmaSi Commercial Insurance [id number] 2018 Unknown Family history Father Diagnosis Age At Onset Hyperlipidemia Unknown Heart Attack Unknown Mother Diagnosis Age At Onset Hypertension Unknown Social History Social History Element Codes Description Effective Dates Marital status Unknown Mignon 01/20/2016 Number of children Unknown 4 01/20/2016 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/[address]: 080342546 Never smoker 01/20/[address]: 319828976 Never drinks alcohol 01/20/2016 Allergies, Adverse Reactions, Alerts Substance Reaction Codes Entered Date Inactivated Date Status * NO KNOWN DRUG ALLERGIES Unknown 05/23/2016 No Inactive Date Active Past Medical History Illness Codes Condition Status Onset Date Resolved Date 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 ICD-10: I95.2 Active 02/17/2019 Unknown Other fatigue ICD-9: 780.79 ICD-10: R53.83 Active 08/27/2017 Unknown 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 [...] R53.83 08/27/2017 Active 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 [...] Fill Instructions clonazepam 1 mg tablet RxNorm: 352355 2 Tablet(s) PO HS 201806/14/2019 Active Tresiba FlexTouch U-200 insulin 200 unit/mL (3 mL) subcutaneous pen RxNorm: 3908421 50 Unit(s) SQ daily 01/08/2019 05/07/2019 Active please give him 30 day supply Protonix 40 mg tablet,delayed release RxNorm: 712959 1 Tablet(s) PO daily 12/31/2018 01/29/2019 Inactive Tresiba FlexTouch U-200 insulin 200 unit/mL (3 mL) subcutaneous pen RxNorm: 8373458 50 Unit(s) SQ daily 12/31/2018 01/07/2019 Inactive please give him 30 day supply Augmentin 500 mg-125 mg tablet RxNorm: 588711 1 Tablet(s) PO TID 12/26/2018 01/04/2019 Inactive Augmentin 500 mg-125 mg tablet RxNorm: 166793 1 Tablet(s) PO TID 12/26/2018 12/25/2018 Inactive ProAir HFA 90 mcg/actuation aerosol inhaler RxNorm: 1625863 2 Puff(s) INH QID as needed 11/18/2018 No Stop Date Active Lyrica 50 mg capsule RxNorm: 696014 Capsule(s) PO daily 201802/08/2019 Inactive Cymbalta 30 mg capsule,delayed release RxNorm: 184863 1 Capsule(s) PO QAM 11/13/2018 06/10/2019 Active Lyrica 50 mg capsule RxNorm: 280185 Capsule(s) PO daily 201811/12/2018 Inactive Symbicort 160 mcg-4.5 mcg/actuation HFA aerosol inhaler RxNorm: 8419223 2 Puff(s) INH BID 11/12/2018 12/11/2018 Inactive albuterol sulfate 2.5 mg/3 mL (0.083 %) solution for nebulization RxNorm: 065409 3 Milliliter(s) INH UD 11/07/2018 No Stop Date Active azithromycin 500 mg tablet RxNorm: 256208 500mg on day 1 then 250 mg daily x 4 more day Tablet(s) PO 11/07/20182018 Inactive 500mg on day 1 and then 250mg daily 2-4 cefdinir 300 mg capsule RxNorm: 717597 1 Capsule(s) PO BID 01/201911/06/2018 Inactive azithromycin 500 mg tablet RxNorm: 731358 500mg on day 1 then 250 mg daily x 4 more day Tablet(s) PO 11/07/20182018 Inactive 500mg on day 1 and then 250mg daily 2-4 cefdinir 300 mg capsule RxNorm: 415977 1 Capsule(s) PO BID 01/201911/13/2018 Inactive Levaquin 500 mg tablet RxNorm: 025604 1 Tablet(s) PO daily TAKE ONE TABLET BY MOUTH DAILY UNTIL GONE 10/31/20182018 Inactive Levaquin 500 mg tablet RxNorm: 195321 1 Tablet(s) PO daily 11/12/2018 Inactive valsartan 80 mg tablet RxNorm: 760565 1/2 Tablet(s) PO daily 04/20/2019 Active doxycycline hyclate 100 mg tablet RxNorm: 3432319 1 Tablet(s) PO BID 10/21/2018 10/27/2018 Inactive ketorolac 60 mg/2 mL intramuscular solution RxNorm: 6012053 Milliliter(s) IM 10/21/2018 10/21/2018 Inactive Levaquin 500 mg tablet RxNorm: 074069 1 Tablet(s) PO daily 10/31/2018 Inactive Tessalon Perles 100 mg capsule RxNorm: 950107 1-2 Capsule(s) PO TID PRN 10/14/2018 No Stop Date Active albuterol sulfate 2.5 mg/3 mL (0.083 %) solution for nebulization RxNorm: 578972 3 Milliliter(s) INH UD 10/14/201812/2018 Inactive Levaquin 500 mg tablet RxNorm: 501572 1 Tablet(s) PO daily 08/201810/16/2018 Inactive Coreg 6.25 mg tablet RxNorm: 183683 TAKE ONE TABLET BY MOUTH TWICE A DAY 09/30/2018 03/28/2019 Active albuterol sulfate 2.5 mg/3 mL (0.083 %) solution for nebulization RxNorm: 844126 3 Milliliter(s) INH UD 09/30/201807/2018 Inactive Kenalog 40 mg/mL suspension for injection RxNorm: 0067151 1.5 Milliliter(s) Inj 09/30/2018 09/30/2018 Inactive Keflex 500 mg capsule RxNorm: 193987 1 Capsule(s) PO TID 201710/03/2018 Inactive prednisone 20 mg tablet RxNorm: 863536 2 Tablet(s) PO daily 09/29/2018 Inactive Kenalog 40 mg/mL suspension for injection RxNorm: 4077481 Milliliter(s) Inj 09/11/2018 09/11/2018 Inactive Zyrtec 10 mg tablet RxNorm: 7466139 1 Tablet(s) PO daily 09/0910/08/2018 Inactive Keflex 500 mg capsule RxNorm: 049077 1 Capsule(s) PO TID 201709/15/2018 Inactive Tresiba FlexTouch U-200 insulin 200 unit/mL (3 mL) subcutaneous pen RxNorm: 6415835 50 Unit(s) SQ daily 08/30/2018 08/29/2018 Inactive please give him 30 day supply Tresiba FlexTouch U-200 insulin 200 unit/mL (3 mL) subcutaneous pen RxNorm: 8955926 50 Unit(s) SQ daily 08/30/2018 09/28/2018 Inactive please give him 30 day supply Novolog Flexpen U-100 Insulin aspart 100 unit/mL subcutaneous RxNorm: 8823975 8 Unit(s) SQ AC 08/13/2018 No Stop Date Active Novolog Flexpen U-100 Insulin aspart 100 unit/mL subcutaneous RxNorm: 7601379 8 Unit(s) SQ AC 07/22/20182017 Inactive this is an update on his medication Novolog Flexpen U-100 Insulin aspart 100 unit/mL subcutaneous RxNorm: 8239921 12 Unit(s) SQ AC 07/05/20182017 Inactive this is an update on his medication Toujeyoung SoloStar U-300 Insulin 300 unit/mL (1.5 mL) subcutaneous pen RxNorm: 2594816 INJECT 50 UNITS UNDER THE SKIN DAILY 07/01/2018 08/29/2018 Inactive Mucinex 600 mg tablet, extended release RxNorm: 915577 1 Tablet(s) PO BID 06/28/2018 07/04/2018 Inactive Zofran 4 mg tablet RxNorm: 910833 1 Tablet(s) PO TID as needed nausea 06/28/2018 07/02/2018 Inactive Kenalog 40 mg/mL suspension for injection RxNorm: 4149614 Milliliter(s) Inj 06/28/2018 06/28/2018 Inactive Flonase Allergy Relief 50 mcg/actuation nasal spray, suspension RxNorm: 5609708 1 [place] NASAL BID 06/28/20182017 Inactive Lyrica 50 mg capsule RxNorm: 359842 Capsule(s) PO daily 201707/06/2018 Inactive Novolog Flexpen U-100 Insulin aspart 100 unit/mL subcutaneous RxNorm: 3788979 10 Unit(s) SQ AC 06/18/20182017 Inactive this is an update on his medication Lasix 20 mg tablet RxNorm: 478661 1 Tablet(s) PO BIW 201707/02/2018 Inactive atorvastatin 80 mg tablet RxNorm: 642948 1 Tablet(s) PO QHS 04/201812/06/2018 Inactive clonazepam 1 mg tablet RxNorm: 492305 2 Tablet(s) PO HS as needed 06/10/2018 06/08/2018 Inactive clonazepam 1 mg tablet RxNorm: 048201 2 Tablet(s) PO HS 201702/17/2019 Inactive Lyrica 50 mg capsule RxNorm: 229888 Capsule(s) PO daily 201707/08/2018 Inactive Lasix 20 mg tablet RxNorm: 166101 1 Tablet(s) PO TIW 201706/11/2018 Inactive Toujeo SoloStar U-300 Insulin 300 unit/mL (1.5 mL) subcutaneous pen RxNorm: 6463154 50 Unit(s) SQ daily 05/07/2018 06/30/2018 Inactive meloxicam 15 mg tablet RxNorm: 595380 15 Milligram(s) PO daily 05/02/2018 05/12/2018 Inactive ketorolac 30 mg/mL injection solution RxNorm: 454277 2 Milliliter(s) Inj 05/02/2018 05/02/2018 Inactive Toujeo SoloStar U-300 Insulin 300 unit/mL (1.5 mL) subcutaneous pen RxNorm: 1155720 45 Unit(s) daily 04/29/2018 Inactive clonazepam 1 mg tablet RxNorm: 086239 1 Tablet(s) PO Q8 as needed 04/29/2018 06/09/2018 Inactive doxycycline hyclate 100 mg tablet RxNorm: 4160851 1 Tablet(s) PO BID 04/29/2018 05/12/2018 Inactive Cymbalta 30 mg capsule,delayed release RxNorm: 527938 1 Capsule(s) PO QAM 03/13/2018 10/08/2018 Inactive Lexapro 10 mg tablet RxNorm: 821838 1 Tablet(s) PO QPM 201703/03/2018 Inactive Toujeo SoloStar U-300 Insulin 300 unit/mL (1.5 mL) subcutaneous pen RxNorm: 0462150 20 Unit(s) daily 02/28/2018 Inactive Protonix 40 mg tablet,delayed release RxNorm: 490169 1 Tablet(s) PO daily 01/29/2018 06/09/2018 Inactive clonazepam 1 mg tablet RxNorm: 533633 1 Tablet(s) PO Q8 as needed 12/12/2017 03/10/2018 Inactive Tamiflu 75 mg capsule RxNorm: 185955 1 Capsule(s) PO BID 201712/03/2017 Inactive doxycycline hyclate 100 mg capsule RxNorm: 8099795 1 Capsule(s) PO BID 09/07/2017 09/20/2017 Inactive doxycycline hyclate 100 mg capsule RxNorm: 8759726 1 Capsule(s) PO BID 08/27/2017 09/06/2017 Inactive prednisone 20 mg tablet RxNorm: 181030 2 Tablet(s) PO daily 08/31/2017 Inactive clopidogrel 75 mg tablet RxNorm: 230224 1 Tablet(s) PO daily 06/09/2018 Inactive atorvastatin 40 mg tablet RxNorm: 702547 1 Tablet(s) PO QHS 02/27/2018 Inactive losartan 25 mg tablet RxNorm: 265986 TAKE ONE TABLET BY MOUTH DAILY 08/22/2017 06/09/2018 Inactive Toujeo SoloStar 300 unit/mL (1.5 mL) subcutaneous insulin pen RxNorm: 3169078 45 Unit(s) daily 08/17/2017 08/20/2017 Inactive mupirocin 2 % topical ointment RxNorm: 316166 1 Application TOP TID to the lesions on chest 08/16/2017 08/25/2017 Inactive Toujeo SoloStar 300 unit/mL (1.5 mL) subcutaneous insulin pen RxNorm: 9687213 40 Unit(s) daily 08/16/2017 08/16/2017 Inactive valacyclovir 1 gram tablet RxNorm: 976398 1 Tablet(s) PO TID 08/01/2017 Inactive clonazepam 1 mg tablet RxNorm: 010181 1 Tablet(s) PO Q8 as needed 07/03/2017 09/30/2017 Inactive Levaquin 500 mg tablet RxNorm: 045480 1 Tablet(s) PO daily 06/25/2017 Inactive Levaquin 500 mg tablet RxNorm: 048374 1 Tablet(s) PO daily 06/21/2017 Inactive losartan 25 mg tablet RxNorm: 474315 1 Tablet(s) PO daily 201608/16/2017 Inactive nystatin 100,000 unit/mL oral suspension RxNorm: 122741 5 Milliliter(s) PO QID Swish et swallow 06/18/2017 06/17/2017 Inactive nystatin 100,000 unit/mL oral suspension RxNorm: 564897 5 Milliliter(s) PO QID Swish et swallow 06/18/2017 06/27/2017 Inactive Cipro 500 mg tablet RxNorm: 646801 1 Tablet(s) PO BID 201606/18/2017 Inactive Cipro 500 mg tablet RxNorm: 772836 1 Tablet(s) PO BID 201606/11/2017 Inactive Toujeo SoloStar 300 unit/mL (1.5 mL) subcutaneous insulin pen RxNorm: 7700001 INJECT 10 UNITS UNDER THE SKIN DAILY 06/12/2017 08/15/2017 Inactive Keflex 500 mg capsule RxNorm: 701027 1 Capsule(s) PO TID 201606/13/2017 Inactive doxycycline hyclate 100 mg capsule RxNorm: 4964896 1 Capsule(s) PO BID 05/17/2017 05/21/2017 Inactive doxycycline hyclate 100 mg capsule RxNorm: 2346696 1 Capsule(s) PO BID 05/11/2017 05/16/2017 Inactive losartan 25 mg tablet RxNorm: 482313 1 Tablet(s) PO daily 201606/17/2017 Inactive atorvastatin 40 mg tablet RxNorm: 542942 1 Tablet(s) PO daily 03/01/2017 08/23/2017 Inactive clopidogrel 75 mg tablet RxNorm: 031450 1 Tablet(s) PO daily 08/23/2017 Inactive Flonase Allergy Relief 50 mcg/actuation nasal spray, suspension RxNorm: 6723861 2 [place] NASAL daily 02/16/20172016 Inactive Augmentin 875 mg-125 mg tablet RxNorm: 455069 1 Tablet(s) PO BID 02/16/2017 02/22/2017 Inactive GET PROBIOTIC TO TAKE WHILE ON ABX Tamiflu 75 mg capsule RxNorm: 048736 1 Capsule(s) PO BID 201602/20/2017 Inactive ceftriaxone 500 mg solution for injection RxNorm: 4561030 1 Milliliter(s) Inj 02/16/2017 02/16/2017 Inactive Kenalog 40 mg/mL suspension for injection RxNorm: 2703695 1 Milliliter(s) Inj 02/16/2017 02/16/2017 Inactive Toujeo SoloStar 300 unit/mL (1.5 mL) subcutaneous insulin pen RxNorm: 5824514 25 Unit(s) SQ QAM 02/12/2017 06/10/2017 Inactive Toujeo SoloStar 300 unit/mL (1.5 mL) subcutaneous insulin pen RxNorm: 5997171 10 Unit(s) SQ QAM 02/05/2017 02/11/2017 Inactive lisinopril 10 mg tablet RxNorm: 341109 1 Tablet(s) PO daily 02/28/2017 Inactive atorvastatin 40 mg tablet RxNorm: 799816 1 Tablet(s) PO daily 02/01/2017 02/28/2017 Inactive doxycycline hyclate 100 mg capsule RxNorm: 0690450 1 Capsule(s) PO BID 02/01/2017 02/10/2017 Inactive clonazepam 1 mg tablet RxNorm: 960319 1 Tablet(s) PO Q8 as needed 10/09/2016 01/05/2017 Inactive ceftriaxone 1 gram solution for injection RxNorm: 1221197 Inj 10/06/2016 10/06/2016 Inactive cyclobenzaprine 10 mg tablet RxNorm: 290761 1/2-1 Tablet(s) PO TID PRN 07/18/2016 01/28/2017 Inactive clonazepam 1 mg tablet RxNorm: 164395 1 Tablet(s) PO Q8 as needed 05/31/2016 05/29/2016 Inactive clonazepam 1 mg tablet RxNorm: 669099 1 Tablet(s) PO Q8 as needed 05/31/2016 08/28/2016 Inactive Toujeo SoloStar 300 unit/mL (1.5 mL) subcutaneous insulin pen RxNorm: 7084223 10 Unit(s) SQ daily 05/23/2016 01/28/2017 Inactive Crestor 10 mg tablet RxNorm: 011634 1 Tablet(s) PO QHS 201501/28/2017 Inactive Crestor 10 mg tablet RxNorm: 328285 1 Tablet(s) PO QHS 201505/18/2016 Inactive clonazepam 1 mg tablet RxNorm: 623024 1 Tablet(s) PO Q8 as needed 04/25/2016 05/30/2016 Inactive prednisone 20 mg tablet RxNorm: 672094 3 Tablet(s) PO daily 06/201602/10/2016 Inactive prednisone 20 mg tablet RxNorm: 892729 3 Tablet(s) PO daily 06/201605/14/2016 Inactive Kenalog 40 mg/mL suspension for injection RxNorm: 8841450 Milliliter(s) Inj 01/20/2016 01/20/2016 Inactive aspirin 81 mg tablet,delayed release RxNorm: 268501 1 Tablet(s) PO daily No Start Date Active Brilinta 90 mg tablet RxNorm: 7146073 1 Tablet(s) PO BID No Start Date Active acetaminophen 500 mg tablet RxNorm: 995977 1-2 Tablet(s) PO as needed No Start Date Active clopidogrel 75 mg tablet RxNorm: 397853 1 Tablet(s) PO daily No Start Date 02/28/2017 Inactive Novolog Flexpen U-100 Insulin aspart 100 unit/mL subcutaneous RxNorm: 4698172 5 units with breakfast lunch and 10 supper Unit(s) SQ No Start Date 06/17/2018 Inactive clonazepam 1 mg tablet RxNorm: 011676 1 Tablet(s) PO QHS No Start Date 04/24/2016 Inactive Coreg 6.25 mg tablet RxNorm: 651710 1 Tablet(s) PO BID No Start Date 09/29/2018 Inactive acyclovir 400 mg tablet RxNorm: 966296 2 Tablet(s) PO 5x daily No Start Date 02/28/2017 Inactive Lyrica 50 mg capsule RxNorm: 854235 Capsule(s) PO BID No Start Date 06/09/2018 Inactive Vraylar 3 mg capsule RxNorm: 8735581 1 Capsule(s) PO daily No Start Date 03/12/2018 Inactive valsartan 80 mg tablet RxNorm: 695840 1 Tablet(s) PO daily No Start Date 10/22/2018 Inactive Medication Administered Medication Codes Instructions Start Date Status ketorolac 60 mg/2 mL intramuscular solution RxNorm: 6220912 Milliliter 10/21/2018 No longer Active Kenalog 40 mg/mL suspension for injection RxNorm: 0376590 1.5Milliliter 09/30/2018 No longer Active Kenalog 40 mg/mL suspension for injection RxNorm: 6028024 Milliliter 09/11/2018 No longer Active Kenalog 40 mg/mL suspension for injection RxNorm: 6572686 Milliliter 06/28/2018 No longer Active ketorolac 30 mg/mL injection solution RxNorm: 768795 2Milliliter 05/02/2018 No longer Active ceftriaxone 500 mg solution for injection RxNorm: 1569921 1Milliliter 02/16/2017 No longer Active Kenalog 40 mg/mL suspension for injection RxNorm: 1161987 1Milliliter 02/16/2017 No longer Active ceftriaxone 1 gram solution for injection RxNorm: 4118591 10/06/2016 No longer Active Kenalog 40 mg/mL suspension for injection RxNorm: 5652854 Milliliter 01/20/2016 No longer Active Immunizations Vaccine Codes Date Status Influenza CVX: 141 07/22/2018 completed Influenza CVX: 141 08/16/2017 completed Assessments Condition Codes Effective Dates Other fatigue ICD-10: R53.83 ICD-9: 780.79 02/17/2019 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-10: I95.2 ICD-9: 458.8 02/17/2019 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-10: I25.10 [...] Item Item Code Result Date Culture Sputum 304399 LOWER RESPIRATORY TRACT CULTURE SEE NOTES 11/14/2018 Culture Sputum 645392 LOWER RESPIRATORY TRACT CULTURE SEE NOTES 10/16/2018 LIPID GRP [id number] CHOLESTEROL TNP:Duplicate Order 09/10/2018 LIPID GRP Triglyceride TNP:Duplicate Order 2017 LIPID GRP HDL CHOLESTEROL TNP:Duplicate Order 2017 LIPID GRP Chol/HDL Ratio TNP:Duplicate Order 2017 LIPID GRP LDL Cholesterol TNP:Duplicate Order 2017 A1C HPLC 7516659 Hgb A1c 45180-9 TNP:Duplicate Order 2017 C Diff An [id number] GDH TNP:Lab Request 06/22/2018 C Diff An [id number] Toxin A/B TNP:Lab Request 06/22/2018 C Diff An [id number] C Diff Analyzer TNP:Lab Request 2017 C Diff An [id number] IC OK? TNP:Lab Request 06/22/2018 CBC [id number] WBC 6.4 10e9/L 05/02/2018 CBC 2297037 RBC 5.60 10e12/L 05/02/2018 CBC 9867065 HEMOGLOBIN 17.0 g/dL 05/02/2018 CBC 1675883 HEMATOCRIT 48.0 % 05/02/2018 CBC 8146155 MCV 85.7 fL 05/02/2018 CBC 1994362 MCH 30.4 pg 05/02/2018 CBC 6487574 MCHC 35.4 g/dL 05/02/2018 CBC 8358434 PLATELET COUNT 166 10e9/L 05/02/2018 CBC 9652743 Mean Plt Volume 11.6 fL 05/02/2018 CBC 6738240 Neut Auto 48.6 % 05/02/2018 CBC 5449839 Lymph Auto 41.7 % 05/02/2018 CBC 7958975 [place] Auto 8.1 % 05/02/2018 CBC 7725349 RDW 13.1 % 05/02/2018 CBC 8052122 Eos Auto 1.1 % 05/02/2018 CBC 0990089 Baso Auto 0.5 % 05/02/2018 CBC 5269342 Neutrophil Abs 3.11 10e9/L 05/02/2018 CBC 3770977 Lymphocyte Abs 2.67 10e9/L 05/02/2018 CBC 0646934 Monocyte Abs 0.52 10e9/L 05/02/2018 CBC 2610168 Eosinophil Abs 0.07 10e9/L 05/02/2018 CBC 1911799 RDW-SD 40.0 fL 05/02/2018 CBC 3307932 Basophil Abs 0.03 10e9/L 05/02/2018 CHEM 14 4857439 AST 17 U/L 05/02/2018 CHEM 14 1238572 ALT 17 U/L 05/02/2018 CHEM 14 4592472 BUN 17 mg/dL 05/02/2018 CHEM 14 3450984 ALBUMIN 4.0 g/dL 05/02/2018 CHEM 14 3296155 CHLORIDE 97 mmol/L 05/02/2018 CHEM 14 8818404 Bili Total 0.9 mg/dL 05/02/2018 CHEM 14 2148039 ALK PHOS 67 U/L 05/02/2018 CHEM 14 5282125 SODIUM 135 mmol/L 05/02/2018 CHEM 14 4790370 CREATININE 1.18 mg/dL 05/02/2018 CHEM 14 2314879 CALCIUM 9.4 mg/dL 05/02/2018 CHEM 14 2181831 POTASSIUM 4.4 mmol/L 05/02/2018 CHEM 14 6606484 TOTAL PROTEIN 6.9 g/dL 05/02/2018 CHEM 14 4046864 GLUCOSE 316 mg/dL 05/02/2018 CHEM 14 7906235 Bicarbonate 29 mmol/L 05/02/2018 CHEM 14 4769285 AGAP 9 mmol/L 05/02/2018 MEAN GLUC 7399062 Calc Mean Gluc 283 mg/dL 05/02/2018 A1C HPLC 4124625 Hgb A1c 36335-6 11.5 % 05/02/2018 GFR CALC 2847818 GFR Non Afr Amr >60 mL/min 05/02/2018 GFR CALC 2186164 GFR Afr Amr >60 mL/min 05/02/2018 JI Gold 9046806 JIC Gold Complete 02/28/2018 GFR CALC 7871131 GFR Non Afr Amr >60 mL/min 02/28/2018 GFR CALC 5962601 GFR Afr Amr >60 mL/min 02/28/2018 UA W/CII 0345780 UA Urine Appear Normal 02/28/2018 UA W/CII 6552436 UA Protein 1+ 02/28/2018 UA W/CII 8619779 UA Hemoglobin Negative 02/28/2018 UA W/CII 4182591 UA Glucose 4+ 02/28/2018 UA W/CII 5437525 UA Ketones Trace 02/28/2018 UA W/CII 6015475 UA pH 5.5 02/28/2018 UA W/CII 7357649 U Spec [place] 1.015 02/28/2018 UA W/CII 6049089 UA Bilirubin Negative 02/28/2018 UA W/CII 5752543 UA Nitrite NEG 02/28/2018 UA W/CII 7268925 UA Leuk Esteras Negative 02/28/2018 MICR 1808637 UA WBC/hpf 1 02/28/2018 MICR 6587517 UA RBC hpf 2 02/28/2018 MICR 8468359 UA WBC auto 3.8 /uL 02/28/2018 MICR 6676334 UA RBC auto 12.2 /uL 02/28/2018 MICR 4311654 UA SQ EPI auto 2.3 /uL 02/28/2018 MICR 8997696 UA H Cast auto 0.10 /uL 02/28/2018 CBC 8708104 WBC 6.4 10e9/L 02/28/2018 CBC 7138838 RBC 5.51 10e12/L 02/28/2018 CBC 9735817 HEMOGLOBIN 16.7 g/dL 02/28/2018 CBC 0674329 HEMATOCRIT 46.9 % 02/28/2018 CBC 0792593 MCV 85.1 fL 02/28/2018 CBC 9328581 MCH 30.3 pg 02/28/2018 CBC 3391165 MCHC 35.6 g/dL 02/28/2018 CBC 0861780 PLATELET COUNT 173 10e9/L 02/28/2018 CBC 3316000 Mean Plt Volume 11.6 fL 02/28/2018 CBC 0243611 Neut Auto 51.8 % 02/28/2018 CBC 5320107 Lymph Auto 39.9 % 02/28/2018 CBC 1464531 [place] Auto 7.3 % 02/28/2018 CBC 8709988 RDW 13.3 % 02/28/2018 CBC 6950724 Eos Auto 0.8 % 02/28/2018 CBC 6031447 Baso Auto 0.2 % 02/28/2018 CBC 3579371 Neutrophil Abs 3.32 10e9/L 02/28/2018 CBC 3831690 Lymphocyte Abs 2.55 10e9/L 02/28/2018 CBC 3138125 Monocyte Abs 0.47 10e9/L 02/28/2018 CBC 5289400 Eosinophil Abs 0.05 10e9/L 02/28/2018 CBC 8892733 RDW-SD 40.8 fL 02/28/2018 CBC 8203160 Basophil Abs 0.01 10e9/L 02/28/2018 CHEM 14 7082360 AST 17 U/L 02/28/2018 CHEM 14 7045162 ALT 17 U/L 02/28/2018 CHEM 14 5684302 BUN 20 mg/dL 02/28/2018 CHEM 14 7719693 ALBUMIN 4.1 g/dL 02/28/2018 CHEM 14 1139143 CHLORIDE 97 mmol/L 02/28/2018 CHEM 14 5240634 Bili Total 1.3 mg/dL 02/28/2018 CHEM 14 7558215 ALK PHOS 78 U/L 02/28/2018 CHEM 14 0035668 SODIUM 135 mmol/L 02/28/2018 CHEM 14 6890237 CREATININE 1.09 mg/dL 02/28/2018 CHEM 14 9904537 CALCIUM 9.6 mg/dL 02/28/2018 CHEM 14 3553737 POTASSIUM 3.8 mmol/L 02/28/2018 CHEM 14 9397479 TOTAL PROTEIN 7.3 g/dL 02/28/2018 CHEM 14 8653413 GLUCOSE 349 mg/dL 02/28/2018 CHEM 14 1959057 Bicarbonate 29 mmol/L 02/28/2018 CHEM 14 8414375 AGAP 9 mmol/L 02/28/2018 [place] Spotted Fever Igg/Igm 909046 FEI MT SPOTTED FEVER IGM EIA . 09/05/2017 [place] Spotted Fever Igg/Igm 508812 RMSF, IGM 0.17 index 09/05/2017 [place] Spotted Fever Igg/Igm 202900 FEI MT SPOTTED FEVER IGG EIA FLEX . 09/05/2017 [place] Spotted Fever Igg/Igm 049815 RMSF, IGG SCREEN-FLEX Positive 09/05/2017 Fei Mtn Spot'D Fev Igg 354998 RMSF, IGG -TITER IFA <1:64 11/2016 Ehrlichia Chaffeensis Antibody Igm 987107 EHRLICHIA CHAFFEENSIS IGM < 1:16 09/03/2017 Ehrlichia [place]affeensis Antibody Igg 576327 EHRLICHIA CHAFFEENSIS IGG <1:64 09/03/2017 Lymes Disease Total Antibodies With Western Blot Reflex B. BURGDORFERI, IGG/IGM 0.223 08/30/2017 [place] Disease Total Antibodies With Western Blot Reflex C-Reactive Protein Qnt Crqnt CRP 0.00 mg/dl 08/27/2017 Sed Rate Ord21 ESR 8 mm/hr 08/27/2017 Comp Metabolic Oyd564 NA 135 mEq/L 08/16/2017 Comp Metabolic Dhs498 K 4.1 mEq/L 08/16/2017 Comp Metabolic Mrw258 CL 98 mEq/L 08/16/2017 Comp Metabolic Dzy153 CO2 28.0 mEq/L 08/16/2017 Comp Metabolic Ulh248 ANION GAP 13 08/16/2017 Comp Metabolic Xol523 GLUCOSE 299 mg/dL 08/16/2017 Comp Metabolic Bxa736 Creat 0.9 mg/dL 08/16/2017 Comp Metabolic Jix857 eGFR 90 ml/min/1.73m2 08/16/2017 Comp Metabolic Zco175 BUN 20 mg/dL 08/16/2017 Comp Metabolic Erb065 B/C Ratio 21.5 Ratio 08/16/2017 Comp Metabolic Exw118 CALCIUM 9.2 mg/dL 08/16/2017 Comp Metabolic Tfi314 ALK PHOS 84 U/L 08/16/2017 Comp Metabolic Wqq024 AST(SGOT) 19 U/L 08/16/2017 Comp Metabolic Ugz721 ALT(SGPT) 24 U/L 08/16/2017 Comp Metabolic Seh680 BILI T 1.1 mg/dL 08/16/2017 Comp Metabolic Bde378 ALBUMIN 4.2 g/dL 08/16/2017 Comp Metabolic Oaq543 TPRO 7.2 g/dL 08/16/2017 Comp Metabolic Fon632 GLOB 3.0 g/dL 08/16/2017 Comp Metabolic Lxm986 A/G Ratio 1.4 Ratio 08/16/2017 Comp Metabolic Ila600 Osmo 284 mOsmo 08/16/2017 %Hba1C Qeb997 % HbA1c 76657-5 12.5 % 08/16/2017 %Hba1C Frd731 Gluc Ave 312 mg/dL 08/16/2017 Urine Culture Ucult Preliminary NO Growth Day 1 06/23/2017 Urine Culture Ucult Complete NO Growth Day 2 06/23/2017 C RAP A SC [id number] Strep A Negative 06/08/2017 %Hba1C Ynp198 % HbA1c 11152-7 9.5 % 05/04/2017 %Hba1C Glq246 Gluc Ave 226 mg/dL 05/04/2017 Tsh Ord6 [...] Baso ABS# 0.0 K/ul 05/04/2017 Comp Metabolic Tkr849 NA 135 mEq/L 05/04/2017 Comp Metabolic Hkt293 K 4.2 mEq/L 05/04/2017 Comp Metabolic Nxw184 CL 99 mEq/L 05/04/2017 Comp Metabolic Gki175 CO2 26.0 mEq/L 05/04/2017 Comp Metabolic Izp321 ANION GAP 14 05/04/2017 Comp Metabolic Xss137 GLUCOSE 277 mg/dL 05/04/2017 Comp Metabolic Trm615 Creat 0.9 mg/dL 05/04/2017 Comp Metabolic Jxr117 eGFR 96 ml/min/1.73m2 05/04/2017 Comp Metabolic Ybn546 BUN 23 mg/dL 05/04/2017 Comp Metabolic Dxq055 B/C Ratio 26.1 Ratio 05/04/2017 Comp Metabolic Stv171 CALCIUM 8.9 mg/dL 05/04/2017 Comp Metabolic Gpo763 ALK PHOS 81 U/L 05/04/2017 Comp Metabolic Wuh462 AST(SGOT) 21 U/L 05/04/2017 Comp Metabolic Vlf400 ALT(SGPT) 27 U/L 05/04/2017 Comp Metabolic Qxa172 BILI T 1.2 mg/dL 05/04/2017 Comp Metabolic Hgw462 ALBUMIN 4.0 g/dL 05/04/2017 Comp Metabolic Zph093 TPRO 6.7 g/dL 05/04/2017 Comp Metabolic Kqa332 GLOB 2.7 g/dL 05/04/2017 Comp Metabolic Adl575 A/G Ratio 1.5 Ratio 05/04/2017 Comp Metabolic Cgq184 Osmo 284 mOsmo 05/04/2017 C A/B FLU [id number] Influenza A Scr Negative 02/16/2017 C A/B FLU [id number] Influenza B Scr Positive 02/16/2017 Cbc With [...] Lipid Ord30 C/HDL 8.3 Ratio 05/17/2016 %Hba1C Sbd395 % HbA1c 20505-9 12.4 % 05/16/2016 %Hba1C Vjp183 Gluc Ave 309 mg/dL 05/16/2016 Cbc With [...] hTSH II 1.70 uIU/mL 05/15/2016 Comp Metabolic Abw787 NA 135 mEq/L 05/15/2016 Comp Metabolic Qyl424 K 3.9 mEq/L 05/15/2016 Comp Metabolic Fxk988 CL 96 mEq/L 05/15/2016 Comp Metabolic Hex348 CO2 27.0 mEq/L 05/15/2016 Comp Metabolic Cxi714 ANION GAP 16 05/15/2016 Comp Metabolic Xho912 GLUCOSE 183 mg/dL 05/15/2016 Comp Metabolic Cks981 Creat 1.1 mg/dL 05/15/2016 Comp Metabolic Shh528 eGFR 71 ml/min/1.73m2 05/15/2016 Comp Metabolic Doe725 BUN 17 mg/dL 05/15/2016 Comp Metabolic Lhy689 B/C Ratio 14.9 Ratio 05/15/2016 Comp Metabolic Odj378 CALCIUM 9.6 mg/dL 05/15/2016 Comp Metabolic Hqm624 ALK PHOS 100 U/L 05/15/2016 Comp Metabolic Xjp912 AST(SGOT) 20 U/L 05/15/2016 Comp Metabolic Urb359 ALT(SGPT) 20 U/L 05/15/2016 Comp Metabolic Esj256 BILI T 1.3 mg/dL 05/15/2016 Comp Metabolic Bez398 ALBUMIN 4.6 g/dL 05/15/2016 Comp Metabolic Ozb008 TPRO 8.1 g/dL 05/15/2016 Comp Metabolic Vbi810 GLOB 3.5 g/dL 05/15/2016 Comp Metabolic Dwn363 A/G Ratio 1.3 Ratio 05/15/2016 Comp Metabolic Lvr945 Osmo 276 mOsmo 05/15/2016 Review of Systems [...] intact 10/21/2018 None Full Exam - General [facility] Psychiatric orientation/consciousness Overall: oriented to person, place [...] of skin Location: face 05/04/2017 patch left taoism Full Exam - General 1992 Constitutional general [...] Codes Date URINALYSIS NONAUTO W/O SCOPE CPT-4: 25485 02/17/2019 KETOROLAC TROMETHAMINE INJ CPT-4: J1885 10/21/2018 TRIAMCINOLONE ACET INJ NOS CPT-4: J3301 09/30/2018 THER/PROPH/DIAG INJ SC/IM CPT-4: 89077 09/11/2018 TRIAMCINOLONE ACET INJ NOS CPT-4: J3301 09/11/2018 IMMUNIZATION ADMIN CPT -4: 51970 07/22/2018 FLU VAC NO PRSV 4 MENA 3 YRS+ CPT-4: 49130 07/22/2018 TRIAMCINOLONE ACET INJ NOS CPT-4: J3301 06/28/2018 KETOROLAC TROMETHAMINE INJ CPT-4: J1885 05/02/2018 FLU VAC NO PRSV 4 MENA 3 YRS+ CPT-4: 53108 08/16/2017 IMMUNIZATION ADMIN CPT -4: 87918 08/16/2017 URINALYSIS NONAUTO W/O SCOPE CPT-4: 88936 06/21/2017 TRIAMCINOLONE ACET INJ NOS CPT-4: J3301 05/04/2017 THER/PROPH/DIAG INJ SC/IM CPT-4: 40626 05/04/2017 TRIAMCINOLONE ACET INJ NOS CPT-4: J3301 02/16/2017 ROCEPHIN, PER 250 MG CPT-4: J0696 02/16/2017 ROCEPHIN, PER 250 MG CPT-4: J0696 10/06/2016 URINALYSIS NONAUTO W/O SCOPE CPT-4: 96933 07/18/2016 TRIAMCINOLONE ACET INJ NOS CPT-4: J3301 01/20/2016 Vital Signs Date Vital 02/17/2019 Blood Pressure 1: 120/80 Code : 8480-6 Blood Pressure 2: 102/80 Code: 8480-6 Heart Rate 1: 89 bpm SpO2: 96% 01/13/2019 Blood Pressure 1: 120/70 Code : 8480-6 BMI: 34.2 Code : 81092-4 Heart Rate 1 : 74 bpm Height: 6'2" SpO2: 96% Weight: 266 lbs 12/31/2018 Blood Pressure 1: 122/70 Code : 8480-6 BMI: 34.4 Code : 60471-8 Heart Rate 1 : 90 bpm Height: 6'2" SpO2: 97% Temperature: 36.6 (C) / 97.8 (F) Weight: 268 lbs 12/26/2018 Blood Pressure 1: 118/72 Code : 8480-6 BMI: 34.4 Code : 46712-8 Heart Rate 1 : 82 bpm Height: 6'2" SpO2: 98% Temperature: 36.6 (C) / 97.9 (F) Weight: 268 lbs 11/18/2018 Blood Pressure 1: 120/84 Code : 8480-6 BMI: 33.9 Code : 60885-4 Heart Rate 1 : 77 bpm Height: 6'2" SpO2: 99% Temperature: 36.7 (C) / 98.1 (F) Weight: 264 lbs 11/12/2018 Blood Pressure 1: 138/76 Code : 8480-6 BMI: 33.9 Code : 71735-9 Heart Rate 1 : 91 bpm Height: 6'2" SpO2: 99% Weight: 264 lbs 10/30/2018 Blood Pressure 1: 130/72 Code : 8480-6 BMI: 33.3 Code : 16565-9 Heart Rate 1 : 83 bpm Height: 6'2" SpO2: 95% Temperature: 36.5 (C) / 97.7 (F) Weight: 259 lbs 10/24/2018 Blood Pressure 1: 130/70 Code : 8480-6 Heart Rate 1: 95 bpm Height: 6'2" SpO2: 96% 10/23/2018 Blood Pressure 1: 100/70 Code : 8480-6 Blood Pressure 2: 102/70 Code: 8480-6 BMI: 33.3 Code: 28233-3 Heart Rate 1: 106 bpm Height: 6'2" SpO2: 98% Weight: 259 lbs 10/21/2018 Blood Pressure 1: 140/90 Code : 8480-6 BMI: 32.9 Code : 27411-3 Heart Rate 1 : 96 bpm Height: 6'2" SpO2: 92% Weight: 256 lbs 10/17/2018 Blood Pressure 1: 110/68 Code : 8480-6 BMI: 32.9 Code : 99683-0 Heart Rate 1 : 82 bpm Height: 6'2" SpO2: 97% Weight: 256 lbs 10/14/2018 Blood Pressure 1: 124/70 Code : 8480-6 BMI: 33.6 Code : 04836-8 Heart Rate 1 : 76 bpm Height: 6'2" SpO2: 99% Temperature: 36.3 (C) / 97.3 (F) Weight: 262 lbs 09/30/2018 Blood Pressure 1: 138/82 Code : 8480-6 BMI: 33.6 Code : 23362-8 Heart Rate 1 : 82 bpm Height: 6'2" SpO2: 98% Temperature: 36.3 (C) / 97.3 (F) Weight: 262 lbs 09/09/2018 Blood Pressure 1: 140/80 Code : 8480-6 BMI: 33.0 Code : 42938-7 Heart Rate 1 : 97 bpm Height: 6'2" SpO2: 93% Temperature: 36.8 (C) / 98.2 (F) Weight: 257 lbs 07/22/2018 Blood Pressure 1: 120/78 Code : 8480-6 BMI: 31.6 Code : 09704-9 Heart Rate 1 : 87 bpm Height: 6'2" SpO2: 98% Weight: 246 lbs 07/16/2018 Blood Pressure 1: 132/74 Code : 8480-6 BMI: 31.2 Code : 03806-5 Heart Rate 1 : 90 bpm Height: 6'2" SpO2: 96% Weight: 243 lbs 07/01/2018 Blood Pressure 1: 142/82 Code : 8480-6 BMI: 31.8 Code : 78767-9 Heart Rate 1 : 88 bpm Height: 6'2" SpO2: 98% Weight: 248 lbs 06/28/2018 Blood Pressure 1: 132/76 Code : 8480-6 BMI: 31.8 Code : 22697-2 Heart Rate 1 : 107 bpm Height: 6'2" SpO2: 98% Temperature: 37.9 (C) / 100.3 (F) Weight: 248 lbs 06/18/2018 Blood Pressure 1: 138/82 Code : 8480-6 BMI: 31.8 Code : 84587-9 Heart Rate 1 : 82 bpm Height: 6'2" SpO2: 97% Weight: 248 lbs 06/04/2018 Blood Pressure 1: 128/84 Code : 8480-6 BMI: 33.9 Code : 75487-2 Heart Rate 1 : 86 bpm Height: 6'2" SpO2: 95% Weight: 264 lbs 05/13/2018 Blood Pressure 1: 130/80 Code : 8480-6 BMI: 31.1 Code : 64160-2 Heart Rate 1 : 100 bpm Height: 6'2" SpO2: 94% Weight: 242 lbs 05/02/2018 Blood Pressure 1: 134/84 Code : 8480-6 BMI: 31.2 Code : 49573-7 Heart Rate 1 : 93 bpm Height: 6'2" SpO2: 98% Weight: 243 lbs 04/29/2018 Blood Pressure 1: 142/88 Code : 8480-6 BMI: 31.6 Code : 38832-3 Heart Rate 1 : 96 bpm Height: 6'2" SpO2: 96% Temperature: 36.7 (C) / 98.1 (F) Weight: 246 lbs 03/13/2018 Blood Pressure 1: 120/76 Code : 8480-6 BMI: 30.9 Code : 51548-9 Heart Rate 1 : 112 bpm Height: 6'2" SpO2: 97% Weight: 241 lbs 03/07/2018 Blood Pressure 1: 108/78 Code : 8480-6 BMI: 30.0 Code : 73256-2 Heart Rate 1 : 87 bpm Height: 6'2" SpO2: 98% Weight: 234 lbs 02/28/2018 Blood Pressure 1: 106/74 Code : 8480-6 BMI: 30.0 Code : 63521-9 Heart Rate 1 : 101 bpm Height: 6'2" SpO2: 98% Temperature: 36.4 (C) / 97.5 (F) Weight: 234 lbs 02/13/2018 Blood Pressure 1: 110 Code : 8480-6 BMI: 30.0 Code : 81548-3 Heart Rate 1 : 106 bpm Height: 6'2" SpO2: 98% Weight: 234 lbs 01/29/2018 Blood Pressure 1: 10668 Code : 8480-6 BMI: 30.0 Code : 48962-2 Heart Rate 1 : 108 bpm Height: 6'2" SpO2: 98% Weight: 234 lbs 08/27/2017 Blood Pressure 1: 134/76 Code : 8480-6 Heart Rate 1: 98 bpm Height: SpO2: 97% Weight: 08/16/2017 Blood Pressure 1: 128/80 Code : 8480-6 BMI: 32.0 Code : 72282-0 Heart Rate 1 : 94 bpm Height: [...] Code : 8480-6 BMI: 31.8 Code : 41420-5 Heart Rate 1 : 102 bpm Height: [...] Code : 8480-6 BMI: 31.8 Code : 09774-8 Heart Rate 1 : 85 bpm Height: 6'2" SpO2: 96% Temperature: 36.6 (C) / 97.9 (F) Weight: 248 lbs 02/12/2017 Blood Pressure 1: 126/76 Code : 8480-6 BMI: 31.8 Code : 04917-8 Heart Rate 1 : 106 bpm Height: 6'2" SpO2: 91% Weight: 248 lbs 02/05/2017 Blood Pressure 1: 146/86 Code : 8480-6 BMI: 31.9 Code : 08528-2 Heart Rate 1 : 98 bpm Height: 6'2" SpO2: 87% Temperature: 36.7 (C) / 98.0 (F) Weight: 248 lbs 8 oz 01/29/2017 Blood Pressure 1: 132/84 Code : 8480-6 BMI: 31.8 Code : 47478-8 Heart Rate 1 : 83 bpm Height: 6'2" SpO2: 97% Weight: 248 lbs 10/13/2016 Blood Pressure 1: 128/72 Code : 8480-6 Heart Rate 1: 86 bpm SpO2: 94% 10/09/2016 Blood Pressure 1: 128/68 Code : 8480-6 Heart Rate 1: 136 bpm SpO2: 94% Temperature: 36.8 (C) / 98.2 (F) 10/06/2016 Blood Pressure 1: 140/80 Code : 8480-6 BMI: 32.1 Code : 90351-7 Heart Rate 1 : 94 bpm Height: 6'2" SpO2: 95% Weight: 250 lbs 07/18/2016 Blood Pressure 1: 128/86 Code : 8480-6 BMI: 32.1 Code : 03572-7 Heart Rate 1 : 89 bpm Height: 6'2" SpO2: 96% Weight: 250 lbs 06/22/2016 Blood Pressure 1: 118/70 Code : 8480-6 BMI: 32.1 Code : 67512-3 Heart Rate 1 : 70 bpm Height: 6'2" SpO2: 97% Weight: 250 lbs 05/23/2016 Blood Pressure 1: 128/80 Code : 8480-6 BMI: 32.1 Code : 48844-8 Heart Rate 1 : 76 bpm Height: 6'2" SpO2: 98% Weight: 250 lbs 05/15/2016 Blood Pressure 1: 110/90 Code : 8480-6 BMI: 31.3 Code : 85006-9 Heart Rate 1 : 111 bpm Height: 6'2" SpO2: 97% Temperature: 36.6 (C) / 97.8 (F) Weight: 244 lbs 01/20/2016 Blood Pressure 1: 128/76 Code : 8480-6 BMI: 33.0 Code : 35431-7 Heart Rate 1 : 103 bpm Height: [...] data Encounters Encounter Performer Location Codes Date ([id number]) 15930 EST. PATIENT, LEVEL III Diagnosis: Hypotension due to drugs[ICD10: I95.2] Diagnosis: Other fatigue[ICD10: R53.83] Marcela Ha MD, [facility] CPT-4: 19610 02/17/2019 ([id number]) 67596 EST. 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 PATIENT, LEVEL IV Diagnosis: Type 2 diabetes mellitus with hyperglycemia[ICD10: E11.65] Diagnosis: Epigastric pain[ICD10: R10.13] Diagnosis: Pain in joints of right hand[ICD10: M25.541] Diagnosis: Shortness of breath[ICD10: R06.02] Marcela Ha MD, [facility] CPT-4: 96594 12/31/2018 43810 EST. PATIENT, LEVEL III Diagnosis: Other chest pain[ICD10: R07.89] Diagnosis: Cough[ICD10: R05] Madeline Ha MD, [facility] CPT-4: 60326 12/26/2018 ([id number]) 46719 EST. PATIENT, LEVEL III Diagnosis: Cough[ICD10: R05] Melida Ha MD, [facility] CPT-4: 99677 11/18/2018 ([id number]) 90092 EST. PATIENT, LEVEL III Diagnosis: Cough[ICD10: R05] Diagnosis: Pneumonia due to other Gram-negative bacteria[ICD10: J15.6] Marcela Ha MD, [facility] CPT-4: 18914 11/12/2018 ([id number]) 20305 EST. PATIENT, LEVEL III Diagnosis: Pneumonia due to other Gram-negative bacteria[ICD10: J15.6] Diagnosis: Cough[ICD10: R05] Melida Ha MD, [facility] CPT-4: 52802 10/30/2018 ([id number]) 90526 EST. PATIENT, LEVEL II Diagnosis: Pain in joints of right hand[ICD10: M25.541] Diagnosis: Trigger finger, right middle finger[ICD10: M65.331] Marcela Ha MD, [facility] CPT-4: 59685 10/24/2018 ([id number]) 37048 EST. PATIENT, LEVEL IV Diagnosis: Essential (primary) hypertension[ICD10: I10] Diagnosis: Type 2 diabetes mellitus with foot ulcer[ICD10: E11.621] Melida Ha MD, [facility] CPT-4: 68779 10/23/2018 ([id number]) 66076 EST. PATIENT, LEVEL III Diagnosis: Cellulitis of right finger[ICD10: L03.011] Diagnosis: Type 2 diabetes mellitus with foot ulcer[ICD10: E11.621] Diagnosis: Pain in right hand[ICD10: M79.641] Melida Ha MD, [facility] CPT-4: 02895 10/21/2018 79524 EST. PATIENT, LEVEL III Diagnosis: Spontaneous ecchymoses[ICD10: R23.3] Diagnosis: Cellulitis of right lower limb[ICD10: L03.115] Diagnosis: Cellulitis of left lower limb[ICD10: L03.116] Madeline Ha MD, [facility] CPT-4: 14825 10/17/2018 ([id number]) 44065 EST. PATIENT, LEVEL III Diagnosis: Cough[ICD10: R05] Diagnosis: Acute bronchitis, unspecified[ICD10: J20.9] Melida Ha MD, [facility] CPT-4: 70971 10/14/2018 46333 EST. PATIENT, LEVEL III Diagnosis: Acute laryngopharyngitis[ICD10: J06.0] Diagnosis: Cough[ICD10: R05] Madeline Ha MD, [facility] CPT-4: 36071 09/30/2018 ([id number]) 97650 EST. PATIENT, LEVEL III Diagnosis: Acute recurrent maxillary sinusitis[ICD10: J01.01] Diagnosis: Cough[ICD10: R05] Diagnosis: Type 2 diabetes mellitus with hyperglycemia[ICD10: E11.65] Marcela Ha MD, [facility] CPT-4: 11318 09/09/2018 ([id number]) 46434 EST. PATIENT, LEVEL IV Diagnosis: Essential (primary) hypertension[ICD10: I10] Diagnosis: Mixed hyperlipidemia[ICD10: E78.2] Diagnosis: Bipolar disorder, current episode depressed, moderate[ICD10: F31.32] Diagnosis: Type 2 diabetes mellitus with other specified complication[ICD10: E11.69] Melida Ha MD, [facility] CPT-4: 45896 2017 ([id number]) 65209 EST. PATIENT, LEVEL III Diagnosis: Insomnia due to medical condition[ICD10: G47.01] Marcela Ha MD, [facility] CPT-4: 17009 07/16/2018 ([id number]) Miscellaneous no charge Diagnosis: Cough[ICD10: R05] Madeline Ha MD, [facility] CPT-4: 60933 07/01/2018 20046 EST. PATIENT, LEVEL III Diagnosis: Cough[ICD10: R05] Diagnosis: Acute laryngopharyngitis[ICD10: J06.0] Diagnosis: Other allergic rhinitis[ICD10: J30.89] Madeline Ha MD, [facility] CPT-4: 16421 06/28/2018 ([id number]) 47703 EST. PATIENT, LEVEL IV Diagnosis: Type 2 diabetes mellitus with hyperglycemia[ICD10: E11.65] Diagnosis: Essential (primary) hypertension[ICD10: I10] Melida Ha MD, [facility] CPT-4: 02067 06/18/2018 ([id number]) 33334 EST. PATIENT, LEVEL IV Diagnosis: Type 2 diabetes mellitus with hyperglycemia[ICD10: E11.65] Diagnosis: Essential (primary) hypertension[ICD10: I10] Diagnosis: Localized edema[ICD10: R60.0] Melida Ha MD, [facility] CPT- 4: 74769 06/04/2018 ([id number]) 11962 EST. PATIENT, LEVEL III Diagnosis: Type 2 diabetes mellitus with hyperglycemia[ICD10: E11.65] Diagnosis: Myalgia[ICD10: M79.1] Diagnosis: Pain in right hip[ICD10: M25.551] Diagnosis: Pain in left hip[ICD10: M25.552] Marcela Ha MD, [facility] CPT-4: 82141 05/13/2018 ([id number]) 67349 EST. PATIENT, LEVEL III Diagnosis: Myalgia[ICD10: M79.1] Diagnosis: Pain in right hip[ICD10: M25.551] Diagnosis: Pain in left hip[ICD10: M25.552] Marcela Ha MD, [facility] CPT-4: 38711 05/02/2018 ([id number]) 86695 EST. PATIENT, LEVEL IV Diagnosis: Essential (primary) hypertension[ICD10: I10] Diagnosis: Type 2 diabetes mellitus with hyperglycemia[ICD10: E11.65] Diagnosis: Major depressive disorder, single episode, moderate[ICD10: F32.1] Diagnosis: Myalgia[ICD10: M79.1] Marcela Ha MD, [facility] CPT-4: 26848 04/29/2018 ([id number]) 58293 EST. PATIENT, LEVEL IV Diagnosis: Type 2 diabetes mellitus with hyperglycemia[ICD10: E11.65] Diagnosis: Essential (primary) hypertension[ICD10: I10] Diagnosis: Major depressive disorder, single episode, moderate[ICD10: F32.1] Melida Ha MD, [facility] CPT-4: 86824 03/13/2018 ([id number]) 09470 EST. PATIENT, LEVEL III Diagnosis: Type 2 diabetes mellitus with hyperglycemia[ICD10: E11.65] Diagnosis: Bipolar disorder, current episode depressed, moderate[ICD10: F31.32] Diagnosis: Orthostatic hypotension[ICD10: I95.1] Marcela Ha MD, [facility] CPT-4: 16736 03/07/2018 ([id number]) 15682 EST. PATIENT, LEVEL IV Diagnosis: Type 2 diabetes mellitus with hyperglycemia[ICD10: E11.65] Diagnosis: Major depressive disorder, single episode, moderate[ICD10: F32.1] Diagnosis: Orthostatic hypotension[ICD10: I95.1] Diagnosis: Other fatigue[ICD10: R53.83] Marcela Ha MD, [facility] CPT-4: 56261 02/28/2018 16334 EST. PATIENT, LEVEL IV Diagnosis: Other fatigue[ICD10: R53.83] Diagnosis: Other malaise[ICD10: R53.81] Diagnosis: Gastro-esophageal reflux disease without esophagitis[ICD10: K21.9] Madeline Ha MD, [facility] CPT-4: 28086 02/13/2018 ([id number]) 53100 EST. PATIENT, LEVEL IV Diagnosis: Type 2 diabetes mellitus with foot ulcer[ICD10: E11.621] Diagnosis: Essential (primary) hypertension[ICD10: I10] Diagnosis: Gastro-esophageal reflux disease without esophagitis[ICD10: K21.9] Marcela Ha MD, [facility] CPT-4: 22372 01/29/2018 36554 EST. PATIENT, LEVEL III Diagnosis: Other malaise[ICD10: R53.81] Diagnosis: Other fatigue[ICD10: R53.83] Diagnosis: Pain in right shoulder[ICD10: M25.511] Diagnosis: Pain in left shoulder[ICD10: M25.512] Madeline Ha MD, [facility] CPT-4: 80629 08/27/2017 ([id number]) 22239 EST. PATIENT, LEVEL IV Diagnosis: Essential (primary) hypertension[ICD10: I10] Diagnosis: Type 2 diabetes mellitus with hyperglycemia[ICD10: E11.65] Diagnosis: VACCIN FOR INFLUENZA[ICD10: Z23] Melida Ha MD, [facility] CPT-4: 98165 08/16/2017 78769 EST. PATIENT, LEVEL III Diagnosis: Zoster without complications[ICD10: B02.9] Madeline Ha MD, [facility] CPT-4: 32395 07/26/2017 ([id number]) 77687 EST. PATIENT, LEVEL III Diagnosis: Cellulitis of right lower limb[ICD10: L03.115] Marcela Ha MD, [facility] CPT-4: 13382 07/03/2017 38326 EST. PATIENT, LEVEL II Diagnosis: Laceration without foreign body of left forearm, initial encounter[ ICD10: S51.812A] Marcela Ha MD, [facility] CPT-4: 92003 06/29/2017 ([id number]) 20965 EST. PATIENT, LEVEL III Diagnosis: Cellulitis of right lower limb[ICD10: L03.115] Diagnosis: Type 2 diabetes mellitus with foot ulcer[ICD10: E11.621] Marcela Ha MD , [facility] CPT-4: 24777 06/18/2017 ([id number]) 21897 EST. PATIENT, LEVEL IV Diagnosis: Cellulitis of right lower limb[ICD10: L03.115] Diagnosis: Acute laryngopharyngitis[ICD10: J06.0] Diagnosis: Gastro-esophageal reflux disease without esophagitis[ICD10: K21.9] Marcela Ha MD, [facility] CPT-4: 21985 06/07/2017 ([id number]) 86810 EST. PATIENT, LEVEL III Diagnosis: Type 2 diabetes mellitus with hyperglycemia[ICD10: E11.65] Diagnosis: Insect bite (nonvenomous) of abdominal wall, initial encounter[ICD10 : S30.861A] Marcela Ha MD, [facility] CPT-4: 19065 05/17/2017 ([id number]) 38051 EST. PATIENT, LEVEL III Diagnosis: Allergic contact dermatitis due to plants, except food[ICD10: L23.7] Melida Ha MD, [facility] CPT-4: 71289 05/04/2017 ([id number]) 28731 EST. PATIENT, LEVEL III Diagnosis: Essential (primary) hypertension[ICD10: I10] Marcela Ha MD, [facility] CPT-4: 29805 03/15/2017 ([id number]) 96185 EST. PATIENT, LEVEL III Diagnosis: Cough[ICD10: R05] Diagnosis: Essential (primary) hypertension[ICD10: I10] Marcela Ha MD, [facility] CPT-4: 12421 03/01/2017 ([id number]) 91866 EST. PATIENT, LEVEL III Diagnosis: Cough[ICD10: R05] Diagnosis: Nasal congestion[ICD10: R09.81] Diagnosis: Acute recurrent maxillary sinusitis[ICD10: J01.01] Marcela Ha MD, [facility] CPT-4: 14343 02/16/2017 ([id number]) 16630 EST. PATIENT, LEVEL III Diagnosis: Type 2 diabetes mellitus with hyperglycemia[ICD10: E11.65] Marcela Ha MD, [facility] CPT-4: 65452 02/12/2017 ([id number]) 57361 EST. PATIENT, LEVEL IV Diagnosis: Type 2 diabetes mellitus with hyperglycemia[ICD10: E11.65] Diagnosis: Muscle weakness (generalized)[ICD10: M62.81] Diagnosis: Disorientation, unspecified[ICD10: R41.0] Marcela Ha MD, [facility] CPT-4: 58010 02/05/2017 ([id number]) Patient admitted to the hospital from clinic (NO CHARGE) Diagnosis: Type 2 diabetes mellitus with hyperglycemia[ICD10: E11.65] Diagnosis: Disorientation, unspecified[ICD10: R41.0] Diagnosis: Muscle weakness (generalized)[ICD10: M62.81] Marcela Ha MD, [facility] CPT-4: 53234B 01/29/2017 ([id number]) Miscellaneous no charge Diagnosis: Cellulitis of right lower limb[ICD10: L03.115] Marcela Ha MD, [facility] CPT-4: 24747 10/13/2016 ([id number]) Miscellaneous no charge Diagnosis: Type 2 diabetes mellitus with foot ulcer[ICD10: E11.621] Diagnosis: Pain in right foot[ICD10: M79.671] Marcela Ha MD, [facility] CPT-4: 03339 10/09/2016 00733 EST. PATIENT, LEVEL II Diagnosis: Cellulitis of right lower limb[ICD10: L03.115] Marcela Ha MD [facility] CPT-4: 48298 10/06/2016 ([id number]) 51844 EST. PATIENT, LEVEL IV Diagnosis: Low back pain[ICD10: M54.5] Diagnosis: Other deformities of toe(s) (acquired), left foot[ICD10: M20.5X2] Diagnosis: Type 2 diabetes mellitus with foot ulcer[ICD10: E11.621] Marcela Ha MD , [facility] CPT-4: 62350 07/18/2016 ([id number]) 41504 EST. PATIENT, LEVEL III Diagnosis: Type 2 diabetes mellitus with hyperglycemia[ICD10: E11.65] Marcela Ha MD, [facility] CPT-4: 60703 06/22/2016 ([id number]) 72366 EST. PATIENT, LEVEL IV Diagnosis: Type 2 diabetes mellitus with hyperglycemia[ICD10: E11.65] Diagnosis: Mixed hyperlipidemia[ICD10: E78.2] Diagnosis: Other hemoglobinopathies[ICD10: D58.2] [facility] CPT-4: 65136 05/23/2016 ([id number]) 73044 EST. PATIENT, LEVEL IV Diagnosis: Type 2 diabetes mellitus with other specified complication[ICD10: E11.69] Diagnosis: Dehydration[ICD10: E86.0] [facility] CPT-4: 41817 05/15/2016 ([id number]) OFFICE VISIT, NEW - LEVEL 3 Diagnosis: Allergic contact dermatitis due to plants, except food[ICD10: L23.7] [facility] CPT-4: 12549 01/20/2016 Plan of Care Planned Activity Notes Codes Status Date Visit Plan: Orthostasis -decrease coreg -monitor symptoms and follow up in 10 days- sooner if needed Fatigue-check labs 02/17/2019 Appointment: Marcela Oshea WPtel: [address] [place] [address] (30 min) Complex 02/17/2019 Patient Education: Patient Medication Summary Completed 02/17/2019 Appointment: aMrcela Oshea WPtel: [address] [place], [place] [id number] [place] [address] (30 min) Complex 01/14/2019 Visit Plan: Hypertension [...] Summary Completed 01/13/2019 Appointment: Marcela Oshea WPtel: [address] [place], [place] [phone] (30 min) Complex 01/10/2019 Visit Plan: Epigastric pain -start protonix daily- monitor symptoms Chest pain -work up negative done last week with Madeline-recommend appt with Dr Brennan Joint pain-check inflammation makers DM-check Hgb a1c 12/31/2018 Appointment: Marcela Oshea WPtel: [phone] [phone] (15 min) Moderate 12/31/2018 Patient Education: Patient Medication Summary Completed 12/31/2018 Visit Plan: chest pain - EKG and cardiac enzymes OK - discussed with Dr. Ha - will treat for pneumonia - pt is to notify clinic if symptoms do not improve, if they worsen, or with any changes questions, or concerns. 12/26/2018 App[facility]ment: [phone] [phone] (30 min) Complex 12/26/2018 Patient Education: Patient Medication Summary Completed 12/26/2018 Referral: Andrew Cross Patient informed. Referral info faxed. Completed Visit Plan: cough - improved - continue with inhalers - continue with symbicort - rx for proair for PRN use when pt is feelign short of breath with activity. 11/18/2018 Appointment: Melida Ha WPtel: [phone] (15 min) Moderate 11/18/2018 Patient Education: [...] plan. 11/12/2018 Appointment: [facility] [phone] [phone] [place] (30 min) Complex 11/12/2018 Patient Education: Patient Medication Summary Completed 11/12/2018 Patient Education: Symbicort - 18-64 - eCopay Completed 11/12/2018 Care Plan: Referral Order SNOMED-CT : [id number] Pending 11/12/2018 Referral: Niko Mantilla Referral Completed 11/04/2018 Visit Plan: Pneumonia, cough - recent diagnosis of Moraxella Cattharalis - with sensitivity to levaquin - will give 2 wks of levaquin since he had improvement but no full resolution of symptoms. 10/30/2018 Appointment: Melida Ha WPtel: [phone] [facility] 30 min appointments only [...] for evaluation 10/24/2018 Appointment: Marcel[phone] [place] (30 min) Complex 10/24/2018 Patient Education: Patient Medication Summary Completed 10/24/2018 Care Plan: Referral Order SNOMED-CT : [id number] Pending 10/24/2018 Visit Plan: Hypotension - discussed [...] controlled. 10/23/2018 Appointment: Melida Ha WPtel: [phone] [facility] [place] (15 min) Moderate 10/23/2018 Patient [...] and plan. 10/21/2018 Appointment: Marcela Oshea WPtel: [address] [place], [place] [phone] [place] (30 min) Complex 10/21/2018 Patient Education: [...] warmth, discharge. 10/17/2018 Appointment: Madeline Kennedy WPtel: [address] [place], [place] [phone] (15 min) Moderate 10/17/2018 Patient Education: Patient [...] WPtel: [id number] [place] [address] (15 min) Moderate 10/14/2018 Patient Education: Patient Medication Summary Completed 10/14/2018 Care Plan: CHEST X-RAY 2VW FRONTAL&LATL LOINC : 39524-3 Pending 10/14/2018 Visit Plan: URI - Pt [...] spray. 09/30/2018 Appointment: Madeline Kennedy WPtel: [facility] [phone] (15 min) Moderate 09/30/2018 Patient Education: [...] A1C 09/09/2018 Appointment: Marcela Oshea WPtel: [phone] [phone] (15 min) Moderate 09/09/2018 Patient Education: Patient Medication Summary Completed 09/09/2018 Patient Education: Patient Medication Summary Completed 09/06/2018 Patient Education: Cholesterol Management Completed 09/06/2018 Care Plan: Comp Metabolic Pending 09/06/2018 Care Plan: Cbc With Differential Pending 09/06/2018 Care Plan: %Hba1C LOINC : 67814-5 Pending 09/06/2018 Care Plan: Tsh Pending 09/06/2018 Care Plan: Lipid Pending 09/06/2018 Appointment: Marcela Oshea WPtel: [phone] [phone] (15 min) Moderate 08/26/2018 Appointment: Marcela Oshea WPtel: [phone] [phone] (15 min) Moderate 08/23/2018 Visit Plan: [...] insomnia. 07/16/2018 Appointment: Marcela Oshea WPtel: [phone] [phone] (30 min) Complex 07/16/2018 Patient Education: Patient Medication Summary Completed 07/16/2018 Visit Plan: cough - improved - notify clinic if symptoms do not completely resolve, or with any questions or concerns. 07/01/2018 Appointment: [phone] [place] (15 min) Moderate 07/01/2018 Patient Education: [...] spray. 06/28/2018 Appointment: [phone] (15 min) Moderate 06/28/2018 Patient Education: Patient Medication Summary Completed 06/28/2018 Patient Education: Patient Medication Summary Completed 06/21/2018 Care Plan: Annabel RICKS [place] Pending 06/21/2018 Visit Plan: Diabetes Mellitus - [...] improves. 06/04/2018 Appointment: Melida Ha WPtel: [phone] [phone] (15 min) Moderate 06/04/2018 Patient Education: [...] allow for greater blood glucose control. Joint pzly-wibndytt-uclwdyp- symptoms have improved -stop meloxicam due to upset stomach-call if symptoms return 05/13/2018 Appointment: Marcela Oshea WPtel: [phone] [phone] (30 min) Complex 05/13/2018 Patient Education: Patient Medication Summary Completed 05/13/2018 Visit Plan: Bilateral hip awgm-ugsqiryc-aakqtcm IM injection administered today for c/o continued myalgia/arthralgia. Patient to start taking Meloxicam 15mg PO daily. Advised to return to clinic if symptoms do not improve. 05/02/2018 Appointment: Marcela Oshea WPtel: [phone] [phone] (30 min) Complex 05/02/2018 Patient Education: [...] readings at home. Diabetes Mellitus -check labs Pvngvvey-kvcjhwk-ghzy bite-rx for doxycycline-follow up in 2 weeks 04/29/2018 Appointment: Marcela Oshea WPtel: [phone] (15 min) Moderate 04/29/2018 Patient Education: Patient Medication Summary Completed 04/29/2018 Appointment: Melida Ha WPtel: [phone] [phone] [place] (15 min) Moderate 04/15/2018 Appointment: Marcela Oshea WPtel: [facility]3 [phone] (30 min) Complex 03/21/2018 Visit Plan: [...] Ha WPtel: [facility] (30 min) Complex 03/13/2018 Patient Education: Patient Medication Summary Completed 03/13/2018 Visit Plan: DM-continue same medications-monitor blood sugars routinely as directed -rx for new glucometer and test strips provided Bipolar-currently depressed-patient start on vraylar-follow up in 2 weeks, sooner if needed. Patient and verbalied understanding of plan. Hypotension- stay off losartan 03/07/2018 Appointment: [phone] (30 min) Complex 03/07/2018 Patient Education: Patient Medication Summary Completed 03/07/2018 [phone] ([facility] [...] this patient. 02/28/2018 Appointment: Marcel[facility]Ptel[phone] (30 min) Complex 02/28/2018 Patient Education: Patient [...] improving. 02/13/2018 Appointment: Madeline Kennedy [facility]el: [phone] [place] (15 min) Moderate 02/13/2018 Patient Education: Patient Medication Summary Completed 02/13/2018 Referral: Sun Glynn Patient informed. Referral info faxed. Completed Visit Plan: DM-weight loss-not checking blood sugars- patient sent for labs today HTN-low pmmgg-nlrkhoj-blnjt labs Callus of foot and fissue of [...] improving. 01/29/2018 Appointment: Marcel[facility]Ptel: [phone] [place] (30 min) Complex 01/29/2018 Patient Education: Patient Medication Summary Completed 01/29/2018 Care Plan: Comp Metabolic Cancelled 01/29/2018 Care Plan: Cbc With Differential Cancelled 01/29/2018 Care Plan: %Hba1C LOINC : 56415-8 Cancelled 01/29/2018 Care Plan: Referral Order SNOMED-CT : [id number] Cancelled 01/29/2018 Visit Plan: Fatigue, malaise, joint [...] concerns. 08/27/2017 Appointment: Mad[facility]el: [phone] [place] (15 min) Moderate 08/27/2017 Patient Education: [...] - 08/16/2017 Appointment: Melida Ha WPtel: [phone] [facility] (30 min) Complex 08/16/2017 Patient Education: Patient Medication Summary Completed 08/16/2017 Patient Education: Obesity Completed 08/16/2017 Appointment: Madeline Kennedy WPtel: [phone] [phone] (30 min) Complex 08/07/2017 Visit Plan: Shingles [...] considered contagious. 07/26/2017 Appointment: Madeline Kennedy WPtel: [facility]6 [facility] (15 min) Moderate 07/26/2017 Patient Education: Patient Medication Summary Completed 07/26/2017 Visit Plan: Cellulitis right foot-cultured today in the office-home health to reapply wound vac--appt with wound care on to evaluate for debridement- 07/03/2017 Appointment: Marcela Oshea WPtel: [phone] [phone] [place] (30 min) Complex 07/03/2017 Patient Education: Patient Medication Summary Completed 07/03/2017 Visit Plan: Abrasion left arm - Pt was instructed to keep the wound clean, wash with antibacterial soap, use triple antibiotic ointment, call if redness, pustular drainage, or any other acute concerns. 06/29/2017 Appointment: Marcela Oshea WPtel: [facility]7 [phone] (15 min) Moderate 06/29/2017 Patient Education: [...] WPtel: [phone] (15 min) Moderate 06/18/2017 Patient Education: [...] diet-start prilosec 06/07/2017 Appointment: Marcela Oshea WPtel: [phone] (10 min) Simple 06/07/2017 Patient Education: Patient [...] bite-continue doxycycline 05/17/2017 Appointment: Marcela Oshea WPtel: [facility]5 [phone] (30 min) Complex 05/17/2017 Patient Education: [...] [facility] 05/04/2017 Appointment: Marcela Oshea WPtel: [phone] (30 min) Complex 05/04/2017 Patient Education: [...] WPtel: [phone] (15 min) Moderate 03/15/2017 Patient Education: Patient Medication Summary Completed 03/15/2017 Appointment: Marcela Oshea WPtel: [phone] (30 min) Complex 03/12/2017 Visit Plan: [...] discussed 02/16/2017 Appointment: Marcela Oshea WPtel: [phone] [phone] (15 min) Moderate 02/16/2017 Patient Education: [...] controlled. 02/12/2017 Appointment: Marcela Oshea WPtel: [phone] [phone] (30 min) Complex 02/12/2017 Patient Education: Patient Medication Summary Completed 02/12/2017 Appointment: Marcela Oshea WPtel: [phone] [phone] (30 min) Complex 02/06/2017 Visit Plan: [...] consider 02/05/2017 Appointment: Marcela Oshea WPtel: [phone] [phone] (30 min) Complex 02/05/2017 Patient Education: Patient Medication Summary Completed 02/05/2017 Appointment: Marcela Oshea WPtel: [phone] [place] (30 min) Complex 01/30/2017 Visit Plan: Acute confusion-uncontrolled diabetes- chronically noncompliant with treatment and stopped his insulin several months ago-r/o stroke vs DKA-Dr Ha in to evaluate patient-plan to admit for further work up and treatment-patient's called and she transported him to the hospital 01/29/2017 Appointment: Marcela Oshea WPtel: [phone] [place] (30 min) Complex 01/29/2017 Patient Education: Patient Medication Summary Completed 01/29/2017 Patient Education: Obesity Completed 01/29/2017 Visit Plan: Right foot pain-MRI shows foreign body-appt with Dr Grewal for evaluation on Sunday. 10/13/2016 Appointment: Marcela Oshea WPtel: [phone] [place] (15 min) Moderate 10/13/2016 Patient Education: Patient Medication Summary Completed 10/13/2016 Appointment: Marcela Oshea WPtel: [phone] [place] (30 min) Complex 10/12/2016 Visit Plan: Right foot lcya-srxilupz-fcoew washer dropped on foot-xray negative but pain continues to increase-recommend MRI of foot for further evaluation-refer to wound care for lesions on right foot, patient has diabetes and history of osteomyelitis-culture obtained today-continue oral abx- follow up in the office on , sooner if needed 10/09/2016 Visit Plan: Right foot xbmj-kokpuktc-bexlm washer dropped on foot-xray negative but pain continues to increase-recommend MRI of foot for further evaluation-refer to wound care for lesions on right foot, patient has diabetes and history of osteomyelitis-culture obtained today-continue oral abx- follow up in the office on , sooner if needed 10/09/2016 Visit Plan: Right foot rrel-evmncidi-qtlhf washer dropped on foot-xray negative but pain continues to increase-recommend MRI of foot for further evaluation-refer to wound care for lesions on right foot, patient has diabetes and history of osteomyelitis-culture obtained today-continue oral abx- follow up in the office on , sooner if needed 10/09/2016 Appointment: Marcela Oshea WPtel: [address] [place], [place] [phone] (30 min) Complex 10/09/2016 Patient Education: Patient Medication Summary Completed 10/09/2016 Visit Plan: Cellulitis - continue with oral antibiotics as previously directed, return to clinic as previously directed, call for acute change in symptoms, worsening redness, warmth, discharge. 10/06/2016 Appointment: Marcela Oshea WPtel: [address] [place], [place] [phone] (10 min) Simple 10/06/2016 Patient Education: Patient Medication Summary Completed 10/06/2016 Appointment: Marcela Oshea WPtel: [address] [place], [place] [phone] (30 min) Complex 08/24/2016 Referral: Sun Glynn Referral Completed 07/21/2016 Visit Plan: Low back pain- history of spinal fusion- patient for xray lumbar spine-RX sent to [facility] pharmacy and instructed on use-topical voltaren samples provided and instructed on use. Ok to use tylenol as needed as well. The patient is to call the office if the pain is worsening or does not improve. Pressure ulcer left 4th toe-refer to Dr Glynn for evaluation 07/18/2016 Appointment: Marcela Oshea WPtel: [address] [place], [place] [phone] [place] (30 min) Complex 07/18/2016 Patient Education: Patient Medication Summary Completed 07/18/2016 Patient Education: Obesity Completed 07/18/2016 Care Plan: Referral Order SNOMED-CT : [id number] Cancelled 07/18/2016 Visit Plan: Diabetes Mellitus - [...] control. 06/22/2016 Appointment: Marcela Oshea WPtel: [phone] [phone] (30 min) Complex 06/22/2016 Patient Education: [...] today 05/23/2016 Appointment: Marcela Oshea WPtel: [phone] [phone] (30 min) Complex 05/23/2016 Patient Education: [...] of plan. 05/15/2016 Appointment: Marcel[facility]el[phone] (15 min) Moderate 05/15/2016 Patient Education: Patient [...] blue goo called into [facility]. 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 Low back pain- history of spinal fusion-patient for xray lumbar spine-RX sent to [facility] pharmacy and instructed on use-topical [...] for fracture from injury . Right foot xfgx-feefklzb-asfdh washer dropped on foot-xray negative but pain [...] for fracture from injury . Right foot rbbp-lbeutjul-lklkh washer dropped on foot-xray negative but pain [...] for fracture from injury . Right foot tnbn-hqmvunit-agdhx washer dropped on foot-xray negative but pain [...] if needed Fatigue-check labs . Bilateral hip cmyv-xrsdhsxt-ufjmzug IM injection administered today for c/o continued myalgia/arthralgia. Patient to start taking Meloxicam 15mg PO daily. Advised to return to clinic if symptoms do not improve. . DM-weight loss-not checking blood sugars-patient sent for labs today HTN-low pecse-pyripdb-qrxdh labs Callus of foot and fissue of [...] readings are starting to become less controlled. Vuhelehjq-yphhcypp-wzymvvpw to monitor Generalized weakness-refer for PT-patient refuses [...] allow for greater blood glucose control. Joint kaob-tvlpgodd-mfintte-symptoms have improved -stop meloxicam due to upset [...] readings at home. Diabetes Mellitus -check labs Hnqcurlg-udmswsk-bdcl bite-rx for doxycycline-follow up in 2 weeks [...]
--- OUTSIDE RECORDS SUMMARY | 2019-03-10 10:23 | XMS REPORT | CCD ---
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 Name Role Phone PP Unavailable CCM Unavailable Summary Purpose Interface Exchange Insurance Providers Payer name Policy type / Coverage type Covered constitution party ID Effective Begin Date Effective End Date [place] [employer] Commercial Insurance [id number] 2018 Unknown Family history Father Diagnosis Age At Onset Hyperlipidemia Unknown Heart Attack Unknown Mother Diagnosis Age At Onset Hypertension Unknown Social History Social History Element Codes Description Effective Dates Marital status Unknown Mignon 01/20/2016 Number of children Unknown 4 01/20/2016 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/[address]: 990992919 Never smoker 01/20/[address]: 703497808 Never drinks alcohol 01/20/2016 Allergies, Adverse Reactions, Alerts Substance Reaction Codes Entered Date Inactivated Date Status * NO KNOWN DRUG ALLERGIES Unknown 05/23/2016 No Inactive Date Active Past Medical History Illness Codes Condition Status Onset Date Resolved Date 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 ICD-10: I95.2 Active 02/17/2019 Unknown 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 [...] drugs ICD-9: 458.8 ICD-10: I95.2 02/17/2019 Active 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 [...] Fill Instructions clonazepam 1 mg tablet RxNorm: 867571 2 Tablet(s) PO HS 201806/17/2019 Active Tresiba FlexTouch U-200 insulin 200 unit/mL (3 mL) subcutaneous pen RxNorm: 4271402 50 Unit(s) SQ daily 01/08/2019 05/07/2019 Active please give him 30 day supply Protonix 40 mg tablet,delayed release RxNorm: 316799 1 Tablet(s) PO daily 12/31/2018 01/29/2019 Inactive Tresiba FlexTouch U-200 insulin 200 unit/mL (3 mL) subcutaneous pen RxNorm: 0809564 50 Unit(s) SQ daily 12/31/2018 01/07/2019 Inactive please give him 30 day supply Augmentin 500 mg-125 mg tablet RxNorm: 211949 1 Tablet(s) PO TID 12/26/2018 01/04/2019 Inactive Augmentin 500 mg-125 mg tablet RxNorm: 067758 1 Tablet(s) PO TID 12/26/2018 12/25/2018 Inactive ProAir HFA 90 mcg/actuation aerosol inhaler RxNorm: 2836673 2 Puff(s) INH QID as needed 11/18/2018 No Stop Date Active Lyrica 50 mg capsule RxNorm: 964682 Capsule(s) PO daily 201802/08/2019 Inactive Cymbalta 30 mg capsule,delayed release RxNorm: 767540 1 Capsule(s) PO QAM 11/13/2018 06/10/2019 Active Lyrica 50 mg capsule RxNorm: 088287 Capsule(s) PO daily 201811/12/2018 Inactive Symbicort 160 mcg-4.5 mcg/actuation HFA aerosol inhaler RxNorm: 6035621 2 Puff(s) INH BID 11/12/2018 12/11/2018 Inactive albuterol sulfate 2.5 mg/3 mL (0.083 %) solution for nebulization RxNorm: 742234 3 Milliliter(s) INH UD 11/07/2018 No Stop Date Active azithromycin 500 mg tablet RxNorm: 463949 500mg on day 1 then 250 mg daily x 4 more day Tablet(s) PO 11/07/20182018 Inactive 500mg on day 1 and then 250mg daily 2-4 cefdinir 300 mg capsule RxNorm: 874982 1 Capsule(s) PO BID 01/201911/06/2018 Inactive azithromycin 500 mg tablet RxNorm: 885159 500mg on day 1 then 250 mg daily x 4 more day Tablet(s) PO 11/07/20182018 Inactive 500mg on day 1 and then 250mg daily 2-4 cefdinir 300 mg capsule RxNorm: 964112 1 Capsule(s) PO BID 01/201911/13/2018 Inactive Levaquin 500 mg tablet RxNorm: 739497 1 Tablet(s) PO daily TAKE ONE TABLET BY MOUTH DAILY UNTIL GONE 10/31/20182018 Inactive Levaquin 500 mg tablet RxNorm: 651529 1 Tablet(s) PO daily 11/12/2018 Inactive valsartan 80 mg tablet RxNorm: 613518 1/2 Tablet(s) PO daily 04/20/2019 Active doxycycline hyclate 100 mg tablet RxNorm: 7833793 1 Tablet(s) PO BID 10/21/2018 10/27/2018 Inactive ketorolac 60 mg/2 mL intramuscular solution RxNorm: 7402901 Milliliter(s) IM 10/21/2018 10/21/2018 Inactive Levaquin 500 mg tablet RxNorm: 578209 1 Tablet(s) PO daily 10/31/2018 Inactive Tessalon Perles 100 mg capsule RxNorm: 201202 1-2 Capsule(s) PO TID PRN 10/14/2018 No Stop Date Active albuterol sulfate 2.5 mg/3 mL (0.083 %) solution for nebulization RxNorm: 287326 3 Milliliter(s) INH UD 10/14/201812/2018 Inactive Levaquin 500 mg tablet RxNorm: 778226 1 Tablet(s) PO daily 08/201810/16/2018 Inactive Coreg 6.25 mg tablet RxNorm: 089550 TAKE ONE TABLET BY MOUTH TWICE A DAY 09/30/2018 03/28/2019 Active albuterol sulfate 2.5 mg/3 mL (0.083 %) solution for nebulization RxNorm: 340288 3 Milliliter(s) INH UD 09/30/201807/2018 Inactive Kenalog 40 mg/mL suspension for injection RxNorm: 3238031 1.5 Milliliter(s) Inj 09/30/2018 09/30/2018 Inactive Keflex 500 mg capsule RxNorm: 515935 1 Capsule(s) PO TID 201710/03/2018 Inactive prednisone 20 mg tablet RxNorm: 240538 2 Tablet(s) PO daily 09/29/2018 Inactive Kenalog 40 mg/mL suspension for injection RxNorm: 9551687 Milliliter(s) Inj 09/11/2018 09/11/2018 Inactive Zyrtec 10 mg tablet RxNorm: 1071690 1 Tablet(s) PO daily 09/0910/08/2018 Inactive Keflex 500 mg capsule RxNorm: 398918 1 Capsule(s) PO TID 201709/15/2018 Inactive Tresiba FlexTouch U-200 insulin 200 unit/mL (3 mL) subcutaneous pen RxNorm: 9113675 50 Unit(s) SQ daily 08/30/2018 08/29/2018 Inactive please give him 30 day supply Tresiba FlexTouch U-200 insulin 200 unit/mL (3 mL) subcutaneous pen RxNorm: 6802448 50 Unit(s) SQ daily 08/30/2018 09/28/2018 Inactive please give him 30 day supply Novolog Flexpen U-100 Insulin aspart 100 unit/mL subcutaneous RxNorm: 4479541 8 Unit(s) SQ AC 08/13/2018 No Stop Date Active Novolog Flexpen U-100 Insulin aspart 100 unit/mL subcutaneous RxNorm: 3172405 8 Unit(s) SQ AC 07/22/20182017 Inactive this is an update on his medication Novolog Flexpen U-100 Insulin aspart 100 unit/mL subcutaneous RxNorm: 4902708 12 Unit(s) SQ AC 07/05/20182017 Inactive this is an update on his medication Toujeyuong SoloStar U-300 Insulin 300 unit/mL (1.5 mL) subcutaneous pen RxNorm: 4402702 INJECT 50 UNITS UNDER THE SKIN DAILY 07/01/2018 08/29/2018 Inactive Mucinex 600 mg tablet, extended release RxNorm: 297768 1 Tablet(s) PO BID 06/28/2018 07/04/2018 Inactive Zofran 4 mg tablet RxNorm: 238238 1 Tablet(s) PO TID as needed nausea 06/28/2018 07/02/2018 Inactive Kenalog 40 mg/mL suspension for injection RxNorm: 7777484 Milliliter(s) Inj 06/28/2018 06/28/2018 Inactive Flonase Allergy Relief 50 mcg/actuation nasal spray, suspension RxNorm: 7254293 1 [place] NASAL BID 06/28/20182017 Inactive Lyrica 50 mg capsule RxNorm: 874102 Capsule(s) PO daily 201707/06/2018 Inactive Novolog Flexpen U-100 Insulin aspart 100 unit/mL subcutaneous RxNorm: 5862459 10 Unit(s) SQ AC 06/18/20182017 Inactive this is an update on his medication Lasix 20 mg tablet RxNorm: 305347 1 Tablet(s) PO BIW 201707/02/2018 Inactive atorvastatin 80 mg tablet RxNorm: 984970 1 Tablet(s) PO QHS 04/201812/06/2018 Inactive clonazepam 1 mg tablet RxNorm: 755275 2 Tablet(s) PO HS as needed 06/10/2018 06/09/2018 Inactive clonazepam 1 mg tablet RxNorm: 260983 2 Tablet(s) PO HS 201702/17/2019 Inactive Lyrica 50 mg capsule RxNorm: 864578 Capsule(s) PO daily 201707/08/2018 Inactive Lasix 20 mg tablet RxNorm: 853575 1 Tablet(s) PO TIW 201706/11/2018 Inactive Toujeo SoloStar U-300 Insulin 300 unit/mL (1.5 mL) subcutaneous pen RxNorm: 8918406 50 Unit(s) SQ daily 05/07/2018 06/30/2018 Inactive meloxicam 15 mg tablet RxNorm: 433803 15 Milligram(s) PO daily 05/02/2018 05/12/2018 Inactive ketorolac 30 mg/mL injection solution RxNorm: 035109 2 Milliliter(s) Inj 05/02/2018 05/02/2018 Inactive Toujeo SoloStar U-300 Insulin 300 unit/mL (1.5 mL) subcutaneous pen RxNorm: 0510047 45 Unit(s) daily 04/29/2018 Inactive clonazepam 1 mg tablet RxNorm: 070128 1 Tablet(s) PO Q8 as needed 04/29/2018 06/09/2018 Inactive doxycycline hyclate 100 mg tablet RxNorm: 0058612 1 Tablet(s) PO BID 04/29/2018 05/12/2018 Inactive Cymbalta 30 mg capsule,delayed release RxNorm: 207930 1 Capsule(s) PO QAM 03/13/2018 10/08/2018 Inactive Lexapro 10 mg tablet RxNorm: 320230 1 Tablet(s) PO QPM 201703/03/2018 Inactive Toujeo SoloStar U-300 Insulin 300 unit/mL (1.5 mL) subcutaneous pen RxNorm: 9446061 20 Unit(s) daily 02/28/2018 Inactive Protonix 40 mg tablet,delayed release RxNorm: 606039 1 Tablet(s) PO daily 01/29/2018 06/09/2018 Inactive clonazepam 1 mg tablet RxNorm: 189102 1 Tablet(s) PO Q8 as needed 12/12/2017 03/10/2018 Inactive Tamiflu 75 mg capsule RxNorm: 801907 1 Capsule(s) PO BID 201712/03/2017 Inactive doxycycline hyclate 100 mg capsule RxNorm: 9291101 1 Capsule(s) PO BID 09/07/2017 09/20/2017 Inactive doxycycline hyclate 100 mg capsule RxNorm: 0857156 1 Capsule(s) PO BID 08/27/2017 09/06/2017 Inactive prednisone 20 mg tablet RxNorm: 329996 2 Tablet(s) PO daily 08/31/2017 Inactive clopidogrel 75 mg tablet RxNorm: 291590 1 Tablet(s) PO daily 06/09/2018 Inactive atorvastatin 40 mg tablet RxNorm: 041614 1 Tablet(s) PO QHS 02/27/2018 Inactive losartan 25 mg tablet RxNorm: 522170 TAKE ONE TABLET BY MOUTH DAILY 08/22/2017 06/09/2018 Inactive Toujeo SoloStar 300 unit/mL (1.5 mL) subcutaneous insulin pen RxNorm: 8361513 45 Unit(s) daily 08/17/2017 08/20/2017 Inactive mupirocin 2 % topical ointment RxNorm: 155253 1 Application TOP TID to the lesions on chest 08/16/2017 08/25/2017 Inactive Toujeo SoloStar 300 unit/mL (1.5 mL) subcutaneous insulin pen RxNorm: 7450888 40 Unit(s) daily 08/16/2017 08/16/2017 Inactive valacyclovir 1 gram tablet RxNorm: 215237 1 Tablet(s) PO TID 08/01/2017 Inactive clonazepam 1 mg tablet RxNorm: 244482 1 Tablet(s) PO Q8 as needed 07/03/2017 09/30/2017 Inactive Levaquin 500 mg tablet RxNorm: 853103 1 Tablet(s) PO daily 06/25/2017 Inactive Levaquin 500 mg tablet RxNorm: 691109 1 Tablet(s) PO daily 06/21/2017 Inactive losartan 25 mg tablet RxNorm: 894197 1 Tablet(s) PO daily 201608/16/2017 Inactive nystatin 100,000 unit/mL oral suspension RxNorm: 054217 5 Milliliter(s) PO QID Swish et swallow 06/18/2017 06/17/2017 Inactive nystatin 100,000 unit/mL oral suspension RxNorm: 739478 5 Milliliter(s) PO QID Swish et swallow 06/18/2017 06/27/2017 Inactive Cipro 500 mg tablet RxNorm: 570758 1 Tablet(s) PO BID 201606/18/2017 Inactive Cipro 500 mg tablet RxNorm: 514557 1 Tablet(s) PO BID 201606/11/2017 Inactive Toujeo SoloStar 300 unit/mL (1.5 mL) subcutaneous insulin pen RxNorm: 8202586 INJECT 10 UNITS UNDER THE SKIN DAILY 06/12/2017 08/15/2017 Inactive Keflex 500 mg capsule RxNorm: 489736 1 Capsule(s) PO TID 201606/13/2017 Inactive doxycycline hyclate 100 mg capsule RxNorm: 0621410 1 Capsule(s) PO BID 05/17/2017 05/21/2017 Inactive doxycycline hyclate 100 mg capsule RxNorm: 7803762 1 Capsule(s) PO BID 05/11/2017 05/16/2017 Inactive losartan 25 mg tablet RxNorm: 516261 1 Tablet(s) PO daily 201606/17/2017 Inactive atorvastatin 40 mg tablet RxNorm: 608008 1 Tablet(s) PO daily 03/01/2017 08/23/2017 Inactive clopidogrel 75 mg tablet RxNorm: 274756 1 Tablet(s) PO daily 08/23/2017 Inactive Flonase Allergy Relief 50 mcg/actuation nasal spray, suspension RxNorm: 6121753 2 [place] NASAL daily 02/16/20172016 Inactive Augmentin 875 mg-125 mg tablet RxNorm: 710122 1 Tablet(s) PO BID 02/16/2017 02/22/2017 Inactive GET PROBIOTIC TO TAKE WHILE ON ABX Tamiflu 75 mg capsule RxNorm: 998646 1 Capsule(s) PO BID 201602/20/2017 Inactive ceftriaxone 500 mg solution for injection RxNorm: 0004248 1 Milliliter(s) Inj 02/16/2017 02/16/2017 Inactive Kenalog 40 mg/mL suspension for injection RxNorm: 3046719 1 Milliliter(s) Inj 02/16/2017 02/16/2017 Inactive Toujeo SoloStar 300 unit/mL (1.5 mL) subcutaneous insulin pen RxNorm: 6658968 25 Unit(s) SQ QAM 02/12/2017 06/10/2017 Inactive Toujeo SoloStar 300 unit/mL (1.5 mL) subcutaneous insulin pen RxNorm: 9160852 10 Unit(s) SQ QAM 02/05/2017 02/11/2017 Inactive lisinopril 10 mg tablet RxNorm: 325329 1 Tablet(s) PO daily 02/28/2017 Inactive atorvastatin 40 mg tablet RxNorm: 623651 1 Tablet(s) PO daily 02/01/2017 02/28/2017 Inactive doxycycline hyclate 100 mg capsule RxNorm: 0769909 1 Capsule(s) PO BID 02/01/2017 02/10/2017 Inactive clonazepam 1 mg tablet RxNorm: 251407 1 Tablet(s) PO Q8 as needed 10/09/2016 01/05/2017 Inactive ceftriaxone 1 gram solution for injection RxNorm: 3800757 Inj 10/06/2016 10/06/2016 Inactive cyclobenzaprine 10 mg tablet RxNorm: 628972 1/2-1 Tablet(s) PO TID PRN 07/18/2016 01/28/2017 Inactive clonazepam 1 mg tablet RxNorm: 602538 1 Tablet(s) PO Q8 as needed 05/31/2016 05/29/2016 Inactive clonazepam 1 mg tablet RxNorm: 905791 1 Tablet(s) PO Q8 as needed 05/31/2016 08/28/2016 Inactive Toujeo SoloStar 300 unit/mL (1.5 mL) subcutaneous insulin pen RxNorm: 6795686 10 Unit(s) SQ daily 05/23/2016 01/28/2017 Inactive Crestor 10 mg tablet RxNorm: 808187 1 Tablet(s) PO QHS 201501/28/2017 Inactive Crestor 10 mg tablet RxNorm: 592609 1 Tablet(s) PO QHS 201505/18/2016 Inactive clonazepam 1 mg tablet RxNorm: 057724 1 Tablet(s) PO Q8 as needed 04/25/2016 05/30/2016 Inactive prednisone 20 mg tablet RxNorm: 618398 3 Tablet(s) PO daily 06/201602/10/2016 Inactive prednisone 20 mg tablet RxNorm: 500063 3 Tablet(s) PO daily 06/201605/14/2016 Inactive Kenalog 40 mg/mL suspension for injection RxNorm: 6935330 Milliliter(s) Inj 01/20/2016 01/20/2016 Inactive aspirin 81 mg tablet,delayed release RxNorm: 717379 1 Tablet(s) PO daily No Start Date Active Brilinta 90 mg tablet RxNorm: 5039417 1 Tablet(s) PO BID No Start Date Active acetaminophen 500 mg tablet RxNorm: 988269 1-2 Tablet(s) PO as needed No Start Date Active clopidogrel 75 mg tablet RxNorm: 113506 1 Tablet(s) PO daily No Start Date 02/28/2017 Inactive Novolog Flexpen U-100 Insulin aspart 100 unit/mL subcutaneous RxNorm: 8732472 5 units with breakfast lunch and 10 supper Unit(s) SQ No Start Date 06/17/2018 Inactive clonazepam 1 mg tablet RxNorm: 453476 1 Tablet(s) PO QHS No Start Date 04/24/2016 Inactive Coreg 6.25 mg tablet RxNorm: 945178 1 Tablet(s) PO BID No Start Date 09/29/2018 Inactive acyclovir 400 mg tablet RxNorm: 571373 2 Tablet(s) PO 5x daily No Start Date 02/28/2017 Inactive Lyrica 50 mg capsule RxNorm: 070847 Capsule(s) PO BID No Start Date 06/09/2018 Inactive Vraylar 3 mg capsule RxNorm: 5914537 1 Capsule(s) PO daily No Start Date 03/12/2018 Inactive valsartan 80 mg tablet RxNorm: 414582 1 Tablet(s) PO daily No Start Date 10/22/2018 Inactive Medication Administered Medication Codes Instructions Start Date Status ketorolac 60 mg/2 mL intramuscular solution RxNorm: 5416614 Milliliter 10/21/2018 No longer Active Kenalog 40 mg/mL suspension for injection RxNorm: 5281494 1.5Milliliter 09/30/2018 No longer Active Kenalog 40 mg/mL suspension for injection RxNorm: 5402732 Milliliter 09/11/2018 No longer Active Kenalog 40 mg/mL suspension for injection RxNorm: 9604038 Milliliter 06/28/2018 No longer Active ketorolac 30 mg/mL injection solution RxNorm: 392610 2Milliliter 05/02/2018 No longer Active ceftriaxone 500 mg solution for injection RxNorm: 4925935 1Milliliter 02/16/2017 No longer Active Kenalog 40 mg/mL suspension for injection RxNorm: 8732158 1Milliliter 02/16/2017 No longer Active ceftriaxone 1 gram solution for injection RxNorm: 2520571 10/06/2016 No longer Active Kenalog 40 mg/mL suspension for injection RxNorm: 1252298 Milliliter 01/20/2016 No longer Active Immunizations Vaccine Codes Date Status Influenza CVX: 141 07/22/2018 completed Influenza CVX: 141 08/16/2017 completed Assessments Condition Codes Effective Dates 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-10: I25.10 [...] Visit Reason For Visit Effective Dates Notes Hospital Follow Up 01/13/2019 chest pain/pressure 12/31/2018 [...] Item Item Code Result Date Culture Sputum 946084 LOWER RESPIRATORY TRACT CULTURE SEE NOTES 11/14/2018 Culture Sputum 993002 LOWER RESPIRATORY TRACT CULTURE SEE NOTES 10/16/2018 LIPID GRP 3160219 CHOLESTEROL TNP:Duplicate Order 09/10/2018 LIPID GRP Triglyceride TNP:Duplicate Order 2017 LIPID GRP HDL CHOLESTEROL TNP:Duplicate Order 2017 LIPID GRP Chol/HDL Ratio TNP:Duplicate Order 2017 LIPID GRP LDL Cholesterol TNP:Duplicate Order 2017 A1C HPLC 0401584 Hgb A1c 71026-7 TNP:Duplicate Order 2017 C Diff An [id number] GDH TNP:Lab Request 06/22/2018 C Diff An [id number] Toxin A/B TNP:Lab Request 06/22/2018 C Diff An [id number] C Diff Analyzer TNP:Lab Request 2017 C Diff An [id number] IC OK? TNP:Lab Request 06/22/2018 CBC 2174701 WBC 6.4 10e9/L 05/02/2018 CBC 6345215 RBC 5.60 10e12/L 05/02/2018 CBC 4692629 HEMOGLOBIN 17.0 g/dL 05/02/2018 CBC 2624408 HEMATOCRIT 48.0 % 05/02/2018 CBC 6668358 MCV 85.7 fL 05/02/2018 CBC 5534646 MCH 30.4 pg 05/02/2018 CBC 0591643 MCHC 35.4 g/dL 05/02/2018 CBC 8971057 PLATELET COUNT 166 10e9/L 05/02/2018 CBC 6753551 Mean Plt Volume 11.6 fL 05/02/2018 CBC 6876330 Neut Auto 48.6 % 05/02/2018 CBC 5458188 Lymph Auto 41.7 % 05/02/2018 CBC 0972968 [place] Auto 8.1 % 05/02/2018 CBC 1962979 RDW 13.1 % 05/02/2018 CBC 6057872 Eos Auto 1.1 % 05/02/2018 CBC 4481850 Baso Auto 0.5 % 05/02/2018 CBC 9072331 Neutrophil Abs 3.11 10e9/L 05/02/2018 CBC 0712685 Lymphocyte Abs 2.67 10e9/L 05/02/2018 CBC 5740612 Monocyte Abs 0.52 10e9/L 05/02/2018 CBC 8193096 Eosinophil Abs 0.07 10e9/L 05/02/2018 CBC 2570113 RDW-SD 40.0 fL 05/02/2018 CBC 6822338 Basophil Abs 0.03 10e9/L 05/02/2018 CHEM 14 20280509 AST 17 U/L 05/02/2018 CHEM 14 8776066 ALT 17 U/L 05/02/2018 CHEM 14 2019565 BUN 17 mg/dL 05/02/2018 CHEM 14 2963166 ALBUMIN 4.0 g/dL 05/02/2018 CHEM 14 8840288 CHLORIDE 97 mmol/L 05/02/2018 CHEM 14 3830875 Bili Total 0.9 mg/dL 05/02/2018 CHEM 14 4753311 ALK PHOS 67 U/L 05/02/2018 CHEM 14 1626839 SODIUM 135 mmol/L 05/02/2018 CHEM 14 6025839 CREATININE 1.18 mg/dL 05/02/2018 CHEM 14 1679864 CALCIUM 9.4 mg/dL 05/02/2018 CHEM 14 1124012 POTASSIUM 4.4 mmol/L 05/02/2018 CHEM 14 9136212 TOTAL PROTEIN 6.9 g/dL 05/02/2018 CHEM 14 6169686 GLUCOSE 316 mg/dL 05/02/2018 CHEM 14 4329221 Bicarbonate 29 mmol/L 05/02/2018 CHEM 14 7856305 AGAP 9 mmol/L 05/02/2018 MEAN GLUC 9089015 Calc Mean Gluc 283 mg/dL 05/02/2018 A1C HPLC 2459103 Hgb A1c 07308-5 11.5 % 05/02/2018 GFR CALC 3725744 GFR Non Afr Amr >60 mL/min 05/02/2018 GFR CALC 5112487 GFR Afr Amr >60 mL/min 05/02/2018 JI Gold [id number] JI Gold Complete 02/28/2018 GFR CALC 3133959 GFR Non Afr Amr >60 mL/min 02/28/2018 GFR CALC 6515689 GFR Afr Amr >60 mL/min 02/28/2018 UA W/CII 0291721 UA Urine Appear Normal 02/28/2018 UA W/CII 0283045 UA Protein 1+ 02/28/2018 UA W/CII 6960992 UA Hemoglobin Negative 02/28/2018 UA W/CII 8601119 UA Glucose 4+ 02/28/2018 UA W/CII 8558524 UA Ketones Trace 02/28/2018 UA W/CII 5127797 UA pH 5.5 02/28/2018 UA W/CII 2465436 U Spec [place] 1.015 02/28/2018 UA W/CII 1758257 UA Bilirubin Negative 02/28/2018 UA W/CII 4887177 UA Nitrite NEG 02/28/2018 UA W/CII 3257256 UA Leuk Esteras Negative 02/28/2018 MICR 8377888 UA WBC/hpf 1 02/28/2018 MICR 1204733 UA RBC hpf 2 02/28/2018 MICR 3976713 UA WBC auto 3.8 /uL 02/28/2018 MICR 6752046 UA RBC auto 12.2 /uL 02/28/2018 MICR 0589275 UA SQ EPI auto 2.3 /uL 02/28/2018 MICR 8002642 UA H Cast auto 0.10 /uL 02/28/2018 CBC 0091971 WBC 6.4 10e9/L 02/28/2018 CBC 7418919 RBC 5.51 10e12/L 02/28/2018 CBC 7987771 HEMOGLOBIN 16.7 g/dL 02/28/2018 CBC 7469217 HEMATOCRIT 46.9 % 02/28/2018 CBC 2106850 MCV 85.1 fL 02/28/2018 CBC 5294842 MCH 30.3 pg 02/28/2018 CBC 7686698 MCHC 35.6 g/dL 02/28/2018 CBC 0920647 PLATELET COUNT 173 10e9/L 02/28/2018 CBC 4712765 Mean Plt Volume 11.6 fL 02/28/2018 CBC 2560328 Neut Auto 51.8 % 02/28/2018 CBC 2152231 Lymph Auto 39.9 % 02/28/2018 CBC 6358258 [place] Auto 7.3 % 02/28/2018 CBC 2526890 RDW 13.3 % 02/28/2018 CBC 2528433 Eos Auto 0.8 % 02/28/2018 CBC 4165994 Baso Auto 0.2 % 02/28/2018 CBC 1801279 Neutrophil Abs 3.32 10e9/L 02/28/2018 CBC 0518395 Lymphocyte Abs 2.55 10e9/L 02/28/2018 CBC 0451340 Monocyte Abs 0.47 10e9/L 02/28/2018 CBC 7099209 Eosinophil Abs 0.05 10e9/L 02/28/2018 CBC 8926486 RDW-SD 40.8 fL 02/28/2018 CBC 9048916 Basophil Abs 0.01 10e9/L 02/28/2018 CHEM 14 9228002 AST 17 U/L 02/28/2018 CHEM 14 1114275 ALT 17 U/L 02/28/2018 CHEM 14 4466187 BUN 20 mg/dL 02/28/2018 CHEM 14 4868031 ALBUMIN 4.1 g/dL 02/28/2018 CHEM 14 1200649 CHLORIDE 97 mmol/L 02/28/2018 CHEM 14 2300291 Bili Total 1.3 mg/dL 02/28/2018 CHEM 14 6685847 ALK PHOS 78 U/L 02/28/2018 CHEM 14 4396788 SODIUM 135 mmol/L 02/28/2018 CHEM 14 9474489 CREATININE 1.09 mg/dL 02/28/2018 CHEM 14 5454950 CALCIUM 9.6 mg/dL 02/28/2018 CHEM 14 4908943 POTASSIUM 3.8 mmol/L 02/28/2018 CHEM 14 1376026 TOTAL PROTEIN 7.3 g/dL 02/28/2018 CHEM 14 5193289 GLUCOSE 349 mg/dL 02/28/2018 CHEM 14 8272332 Bicarbonate 29 mmol/L 02/28/2018 CHEM 14 1594126 AGAP 9 mmol/L 02/28/2018 [place] Spotted Fever Igg/Igm 417475 FEI MT SPOTTED FEVER IGM EIA . 09/05/2017 [place] Spotted Fever Igg/Igm 332976 RMSF, IGM 0.17 index 09/05/2017 [place] Spotted Fever Igg/Igm 309052 FEI MT SPOTTED FEVER IGG EIA FLEX . 09/05/2017 [place] Spotted Fever Igg/Igm 877433 RMSF, IGG SCREEN-FLEX Positive 09/05/2017 Fei Mtn Spot'D Fev Igg 946205 RMSF, IGG -TITER IFA <1:64 11/2016 Ehrlichia [place]ensis Antibody Igm 867026 EHRLICHIA CHAFFEENSIS IGM < 1:16 09/03/2017 Ehrlichia [place]ensis Antibody Igg 414932 EHRLICHIA CHAFFEENSIS IGG <1:64 09/03/2017 Lymes Disease Total Antibodies With Western Blot Reflex B. BURGDORFERI, IGG/IGM 0.223 08/30/2017 [place]ym[place] Disease Total Antibodies With Western Blot Reflex C-Reactive Protein Qnt Crqnt CRP 0.00 mg/dl 08/27/2017 Sed Rate Ord21 ESR 8 mm/hr 08/27/2017 Comp Metabolic Wqq413 NA 135 mEq/L 08/16/2017 Comp Metabolic Byo581 K 4.1 mEq/L 08/16/2017 Comp Metabolic Qon291 CL 98 mEq/L 08/16/2017 Comp Metabolic Oid815 CO2 28.0 mEq/L 08/16/2017 Comp Metabolic Szi902 ANION GAP 13 08/16/2017 Comp Metabolic Gpa673 GLUCOSE 299 mg/dL 08/16/2017 Comp Metabolic Fkt881 Creat 0.9 mg/dL 08/16/2017 Comp Metabolic Gbn575 eGFR 90 ml/min/1.73m2 08/16/2017 Comp Metabolic Bql752 BUN 20 mg/dL 08/16/2017 Comp Metabolic Gvc601 B/C Ratio 21.5 Ratio 08/16/2017 Comp Metabolic Czk659 CALCIUM 9.2 mg/dL 08/16/2017 Comp Metabolic Nyv307 ALK PHOS 84 U/L 08/16/2017 Comp Metabolic Vot148 AST(SGOT) 19 U/L 08/16/2017 Comp Metabolic Vud454 ALT(SGPT) 24 U/L 08/16/2017 Comp Metabolic Ltq783 BILI T 1.1 mg/dL 08/16/2017 Comp Metabolic Lcm471 ALBUMIN 4.2 g/dL 08/16/2017 Comp Metabolic Xck636 TPRO 7.2 g/dL 08/16/2017 Comp Metabolic Daw093 GLOB 3.0 g/dL 08/16/2017 Comp Metabolic Shs757 A/G Ratio 1.4 Ratio 08/16/2017 Comp Metabolic Yzp036 Osmo 284 mOsmo 08/16/2017 %Hba1C Krb446 % HbA1c 38709-1 12.5 % 08/16/2017 %Hba1C Wik693 Gluc Ave 312 mg/dL 08/16/2017 Urine Culture Ucult Preliminary NO Growth Day 1 06/23/2017 Urine Culture Ucult Complete NO Growth Day 2 06/23/2017 C RAP A SC [id number] Strep A Negative 06/08/2017 %Hba1C Nvv397 % HbA1c 42759-5 9.5 % 05/04/2017 %Hba1C Ijo574 Gluc Ave 226 mg/dL 05/04/2017 Tsh Ord6 [...] 31.7 pg 05/04/2017 Cbc With Differential Ord2 Ritchie% 8.5 % 05/04/2017 Cbc With Differential Ord2 [...] 2.48 K/ul 05/04/2017 Cbc With Differential Ord2 [place] ABS# 0.5 K/ul 05/04/2017 Cbc With Differential Ord2 Eos ABS# 0.1 K/ul 05/04/2017 Cbc With Differential Ord2 Baso ABS# 0.0 K/ul 05/04/2017 Comp Metabolic Yil501 NA 135 mEq/L 05/04/2017 Comp Metabolic Awd246 K 4.2 mEq/L 05/04/2017 Comp Metabolic Inj796 CL 99 mEq/L 05/04/2017 Comp Metabolic Sci723 CO2 26.0 mEq/L 05/04/2017 Comp Metabolic Ohk978 ANION GAP 14 05/04/2017 Comp Metabolic Vwd274 GLUCOSE 277 mg/dL 05/04/2017 Comp Metabolic Ufs236 Creat 0.9 mg/dL 05/04/2017 Comp Metabolic Sqr097 eGFR 96 ml/min/1.73m2 05/04/2017 Comp Metabolic Lmq336 BUN 23 mg/dL 05/04/2017 Comp Metabolic Gyl924 B/C Ratio 26.1 Ratio 05/04/2017 Comp Metabolic Xxn070 CALCIUM 8.9 mg/dL 05/04/2017 Comp Metabolic Cst571 ALK PHOS 81 U/L 05/04/2017 Comp Metabolic Weq187 AST(SGOT) 21 U/L 05/04/2017 Comp Metabolic Kzi147 ALT(SGPT) 27 U/L 05/04/2017 Comp Metabolic Zrb311 BILI T 1.2 mg/dL 05/04/2017 Comp Metabolic Wqu482 ALBUMIN 4.0 g/dL 05/04/2017 Comp Metabolic Mgo693 TPRO 6.7 g/dL 05/04/2017 Comp Metabolic Wpj986 GLOB 2.7 g/dL 05/04/2017 Comp Metabolic Den788 A/G Ratio 1.5 Ratio 05/04/2017 Comp Metabolic Obq789 Osmo 284 mOsmo 05/04/2017 C A/B FLU [id number] Influenza A Scr Negative 02/16/2017 C A/B FLU [id number] Influenza B Scr Positive 02/16/2017 Cbc With [...] 30.3 pg 05/23/2016 Cbc With Differential Ord2 Ritchie% 8.8 % 05/23/2016 Cbc With Differential Ord2 [...] 2.07 K/ul 05/23/2016 Cbc With Differential Ord2 Ritchie ABS# 0.5 K/ul 05/23/2016 Cbc With Differential Ord2 Eos ABS# 0.1 K/ul 05/23/2016 Cbc With Differential Ord2 Baso ABS# 0.0 K/ul 05/23/2016 Lipid Ord30 CHOL 397 mg/dL 05/17/2016 Lipid Ord30 HDL 48.0 mg/dl 05/17/2016 Lipid Ord30 TRIG 578 mg/dL 05/17/2016 Lipid Ord30 LDL Unable to calculate Due to elevated triglycerides mg/dL 05/17/2016 Lipid Ord30 C/HDL 8.3 Ratio 05/17/2016 %Hba1C Yvd949 % HbA1c 24602-2 12.4 % 05/16/2016 %Hba1C Mfx442 Gluc Ave 309 mg/dL 05/16/2016 Cbc With [...] 30.4 pg 05/15/2016 Cbc With Differential Ord2 Ritchie% 7.8 % 05/15/2016 Cbc With Differential Ord2 [...] 2.04 K/ul 05/15/2016 Cbc With Differential Ord2 Ritchie ABS# 0.5 K/ul 05/15/2016 Cbc With Differential Ord2 Eos ABS# 0.1 K/ul 05/15/2016 Cbc With Differential Ord2 Baso ABS# 0.0 K/ul 05/15/2016 Tsh Ord6 hTSH II 1.70 uIU/mL 05/15/2016 Comp Metabolic Crb023 NA 135 mEq/L 05/15/2016 Comp Metabolic Anu272 K 3.9 mEq/L 05/15/2016 Comp Metabolic Qvy937 CL 96 mEq/L 05/15/2016 Comp Metabolic Dho931 CO2 27.0 mEq/L 05/15/2016 Comp Metabolic Jxo736 ANION GAP 16 05/15/2016 Comp Metabolic Hzw461 GLUCOSE 183 mg/dL 05/15/2016 Comp Metabolic Qeg546 Creat 1.1 mg/dL 05/15/2016 Comp Metabolic Jgr110 eGFR 71 ml/min/1.73m2 05/15/2016 Comp Metabolic Zcb478 BUN 17 mg/dL 05/15/2016 Comp Metabolic Eyt936 B/C Ratio 14.9 Ratio 05/15/2016 Comp Metabolic Oai884 CALCIUM 9.6 mg/dL 05/15/2016 Comp Metabolic Aco234 ALK PHOS 100 U/L 05/15/2016 Comp Metabolic Yvn635 AST(SGOT) 20 U/L 05/15/2016 Comp Metabolic Uiu851 ALT(SGPT) 20 U/L 05/15/2016 Comp Metabolic Dby818 BILI T 1.3 mg/dL 05/15/2016 Comp Metabolic Mtq331 ALBUMIN 4.6 g/dL 05/15/2016 Comp Metabolic Oik430 TPRO 8.1 g/dL 05/15/2016 Comp Metabolic Szs277 GLOB 3.5 g/dL 05/15/2016 Comp Metabolic Irb861 A/G Ratio 1.3 Ratio 05/15/2016 Comp Metabolic Ifz887 Osmo 276 mOsmo 05/15/2016 Review of Systems [...] depressed 06/04/2018 None Full Exam - General 1995 Constitutional general appearance Overall: well developed 05/13/2018 [...] of skin Location: face 05/04/2017 patch left judaism Full Exam - General 1994 Constitutional general [...] CPT-4: J3301 09/30/2018 THER/PROPH/DIAG INJ SC/IM CPT-4: 18905 09/11/2018 TRIAMCINOLONE ACET INJ NOS CPT-4: J3301 09/11/2018 IMMUNIZATION ADMIN CPT -4: 49081 07/22/2018 FLU VAC NO PRSV 4 MENA 3 YRS+ CPT-4: 51614 07/22/2018 TRIAMCINOLONE ACET INJ NOS CPT-4: J3301 06/28/2018 KETOROLAC TROMETHAMINE INJ CPT-4: J1885 05/02/2018 FLU VAC NO PRSV 4 MENA 3 YRS+ CPT-4: 60199 08/16/2017 IMMUNIZATION ADMIN CPT -4: 17709 08/16/2017 URINALYSIS NONAUTO W/O SCOPE CPT-4: 68520 06/21/2017 TRIAMCINOLONE ACET INJ NOS CPT-4: J3301 05/04/2017 THER/PROPH/DIAG INJ SC/IM CPT-4: 84775 05/04/2017 TRIAMCINOLONE ACET INJ NOS CPT-4: J3301 02/16/2017 ROCEPHIN, PER 250 MG CPT-4: J0696 02/16/2017 ROCEPHIN, PER 250 MG CPT-4: J0696 10/06/2016 URINALYSIS NONAUTO W/O SCOPE CPT-4: 12736 07/18/2016 TRIAMCINOLONE ACET INJ NOS CPT-4: J3301 01/20/2016 Vital Signs Date Vital 01/13/2019 Blood Pressure 1: 120/70 Code : 8480-6 BMI: 34.2 Code : 23622-0 Heart Rate 1 : 74 bpm Height: 6'2" SpO2: 96% Weight: 266 lbs 12/31/2018 Blood Pressure 1: 122/70 Code : 8480-6 BMI: 34.4 Code : 10354-6 Heart Rate 1 : 90 bpm Height: 6'2" SpO2: 97% Temperature: 36.6 (C) / 97.8 (F) Weight: 268 lbs 12/26/2018 Blood Pressure 1: 118/72 Code : 8480-6 BMI: 34.4 Code : 38875-3 Heart Rate 1 : 82 bpm Height: 6'2" SpO2: 98% Temperature: 36.6 (C) / 97.9 (F) Weight: 268 lbs 11/18/2018 Blood Pressure 1: 120/84 Code : 8480-6 BMI: 33.9 Code : 05040-2 Heart Rate 1 : 77 bpm Height: 6'2" SpO2: 99% Temperature: 36.7 (C) / 98.1 (F) Weight: 264 lbs 11/12/2018 Blood Pressure 1: 138/76 Code : 8480-6 BMI: 33.9 Code : 66132-7 Heart Rate 1 : 91 bpm Height: 6'2" SpO2: 99% Weight: 264 lbs 10/30/2018 Blood Pressure 1: 130/72 Code : 8480-6 BMI: 33.3 Code : 47351-0 Heart Rate 1 : 83 bpm Height: 6'2" SpO2: 95% Temperature: 36.5 (C) / 97.7 (F) Weight: 259 lbs 10/24/2018 Blood Pressure 1: 130/70 Code : 8480-6 Heart Rate 1: 95 bpm Height: 6'2" SpO2: 96% 10/23/2018 Blood Pressure 1: 100/70 Code : 8480-6 Blood Pressure 2: 102/70 Code: 8480-6 BMI: 33.3 Code: 69126-0 Heart Rate 1: 106 bpm Height: 6'2" SpO2: 98% Weight: 259 lbs 10/21/2018 Blood Pressure 1: 140/90 Code : 8480-6 BMI: 32.9 Code : 11161-1 Heart Rate 1 : 96 bpm Height: 6'2" SpO2: 92% Weight: 256 lbs 10/17/2018 Blood Pressure 1: 110/68 Code : 8480-6 BMI: 32.9 Code : 28868-5 Heart Rate 1 : 82 bpm Height: 6'2" SpO2: 97% Weight: 256 lbs 10/14/2018 Blood Pressure 1: 124/70 Code : 8480-6 BMI: 33.6 Code : 62037-0 Heart Rate 1 : 76 bpm Height: 6'2" SpO2: 99% Temperature: 36.3 (C) / 97.3 (F) Weight: 262 lbs 09/30/2018 Blood Pressure 1: 138/82 Code : 8480-6 BMI: 33.6 Code : 40534-7 Heart Rate 1 : 82 bpm Height: 6'2" SpO2: 98% Temperature: 36.3 (C) / 97.3 (F) Weight: 262 lbs 09/09/2018 Blood Pressure 1: 140/80 Code : 8480-6 BMI: 33.0 Code : 66979-8 Heart Rate 1 : 97 bpm Height: 6'2" SpO2: 93% Temperature: 36.8 (C) / 98.2 (F) Weight: 257 lbs 07/22/2018 Blood Pressure 1: 120/78 Code : 8480-6 BMI: 31.6 Code : 29546-9 Heart Rate 1 : 87 bpm Height: 6'2" SpO2: 98% Weight: 246 lbs 07/16/2018 Blood Pressure 1: 132/74 Code : 8480-6 BMI: 31.2 Code : 86337-1 Heart Rate 1 : 90 bpm Height: 6'2" SpO2: 96% Weight: 243 lbs 07/01/2018 Blood Pressure 1: 142/82 Code : 8480-6 BMI: 31.8 Code : 36488-4 Heart Rate 1 : 88 bpm Height: 6'2" SpO2: 98% Weight: 248 lbs 06/28/2018 Blood Pressure 1: 132/76 Code : 8480-6 BMI: 31.8 Code : 56238-9 Heart Rate 1 : 107 bpm Height: 6'2" SpO2: 98% Temperature: 37.9 (C) / 100.3 (F) Weight: 248 lbs 06/18/2018 Blood Pressure 1: 138/82 Code : 8480-6 BMI: 31.8 Code : 93805-7 Heart Rate 1 : 82 bpm Height: 6'2" SpO2: 97% Weight: 248 lbs 06/04/2018 Blood Pressure 1: 128/84 Code : 8480-6 BMI: 33.9 Code : 49967-3 Heart Rate 1 : 86 bpm Height: 6'2" SpO2: 95% Weight: 264 lbs 05/13/2018 Blood Pressure 1: 130/80 Code : 8480-6 BMI: 31.1 Code : 28328-8 Heart Rate 1 : 100 bpm Height: 6'2" SpO2: 94% Weight: 242 lbs 05/02/2018 Blood Pressure 1: 134/84 Code : 8480-6 BMI: 31.2 Code : 82104-7 Heart Rate 1 : 93 bpm Height: 6'2" SpO2: 98% Weight: 243 lbs 04/29/2018 Blood Pressure 1: 142/88 Code : 8480-6 BMI: 31.6 Code : 96800-3 Heart Rate 1 : 96 bpm Height: 6'2" SpO2: 96% Temperature: 36.7 (C) / 98.1 (F) Weight: 246 lbs 03/13/2018 Blood Pressure 1: 120/76 Code : 8480-6 BMI: 30.9 Code : 55213-7 Heart Rate 1 : 112 bpm Height: 6'2" SpO2: 97% Weight: 241 lbs 03/07/2018 Blood Pressure 1: 108/78 Code : 8480-6 BMI: 30.0 Code : 78290-0 Heart Rate 1 : 87 bpm Height: 6'2" SpO2: 98% Weight: 234 lbs 02/28/2018 Blood Pressure 1: 106/74 Code : 8480-6 BMI: 30.0 Code : 62466-9 Heart Rate 1 : 101 bpm Height: 6'2" SpO2: 98% Temperature: 36.4 (C) / 97.5 (F) Weight: 234 lbs 02/13/2018 Blood Pressure 1: 110/78 Code : 8480-6 BMI: 30.0 Code : 96235-1 Heart Rate 1 : 106 bpm Height: 6'2" SpO2: 98% Weight: 234 lbs 01/29/2018 Blood Pressure 1: 106/68 Code : 8480-6 BMI: 30.0 Code : 47193-1 Heart Rate 1 : 108 bpm Height: 6'2" SpO2: 98% Weight: 234 lbs 08/27/2017 Blood Pressure 1: 134/76 Code : 8480-6 Heart Rate 1: 98 bpm Height: SpO2: 97% Weight: 08/16/2017 Blood Pressure 1: 128/80 Code : 8480-6 BMI: 32.0 Code : 37991-3 Heart Rate 1 : 94 bpm Height: [...] Code : 8480-6 BMI: 31.8 Code : 11929-4 Heart Rate 1 : 102 bpm Height: [...] Code : 8480-6 BMI: 31.8 Code : 37462-4 Heart Rate 1 : 85 bpm Height: 6'2" SpO2: 96% Temperature: 36.6 (C) / 97.9 (F) Weight: 248 lbs 02/12/2017 Blood Pressure 1: 126/76 Code : 8480-6 BMI: 31.8 Code : 64792-3 Heart Rate 1 : 106 bpm Height: 6'2" SpO2: 91% Weight: 248 lbs 02/05/2017 Blood Pressure 1: 146/86 Code : 8480-6 BMI: 31.9 Code : 23195-6 Heart Rate 1 : 98 bpm Height: 6'2" SpO2: 87% Temperature: 36.7 (C) / 98.0 (F) Weight: 248 lbs 8 oz 01/29/2017 Blood Pressure 1: 132/84 Code : 8480-6 BMI: 31.8 Code : 13865-7 Heart Rate 1 : 83 bpm Height: 6'2" SpO2: 97% Weight: 248 lbs 10/13/2016 Blood Pressure 1: 128/72 Code : 8480-6 Heart Rate 1: 86 bpm SpO2: 94% 10/09/2016 Blood Pressure 1: 128/68 Code : 8480-6 Heart Rate 1: 136 bpm SpO2: 94% Temperature: 36.8 (C) / 98.2 (F) 10/06/2016 Blood Pressure 1: 140/80 Code : 8480-6 BMI: 32.1 Code : 67819-7 Heart Rate 1 : 94 bpm Height: 6'2" SpO2: 95% Weight: 250 lbs 07/18/2016 Blood Pressure 1: 128/86 Code : 8480-6 BMI: 32.1 Code : 26642-3 Heart Rate 1 : 89 bpm Height: 6'2" SpO2: 96% Weight: 250 lbs 06/22/2016 Blood Pressure 1: 118/70 Code : 8480-6 BMI: 32.1 Code : 81596-5 Heart Rate 1 : 70 bpm Height: 6'2" SpO2: 97% Weight: 250 lbs 05/23/2016 Blood Pressure 1: 128/80 Code : 8480-6 BMI: 32.1 Code : 99936-4 Heart Rate 1 : 76 bpm Height: 6'2" SpO2: 98% Weight: 250 lbs 05/15/2016 Blood Pressure 1: 110/90 Code : 8480-6 BMI: 31.3 Code : 73349-6 Heart Rate 1 : 111 bpm Height: 6'2" SpO2: 97% Temperature: 36.6 (C) / 97.8 (F) Weight: 244 lbs 01/20/2016 Blood Pressure 1: 128/76 Code : 8480-6 BMI: 33.0 Code : 79147-2 Heart Rate 1 : 103 bpm Height: 6'2" SpO2: 95% Weight: 257 lbs Functional Status No Functional Status data History of Present Illness Symptom Name Status Result Effective Date Notes _ cardiac disease 09/2019 None Onset of [...] data Encounters Encounter Performer Location Codes Date [id number] EST. 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 PATIENT, LEVEL IV Diagnosis: Type 2 diabetes mellitus with hyperglycemia[ICD10: E11.65] Diagnosis: Epigastric pain[ICD10: R10.13] Diagnosis: Pain in joints of right hand[ICD10: M25.541] Diagnosis: Shortness of breath[ICD10: R06.02] Marcela Ha MD, [facility] CPT-4: 26099 12/31/2018 18345 EST. PATIENT, LEVEL III Diagnosis: Other chest pain[ICD10: R07.89] Diagnosis: Cough[ICD10: R05] Madeline Ha MD, [facility] CPT-4: 86209 12/26/2018 ([id number]) 92022 EST. PATIENT, LEVEL III Diagnosis: Cough[ICD10: R05] Melida Ha MD, [facility] CPT-4: 07872 11/18/2018 ([id number]) 55975 EST. PATIENT, LEVEL III Diagnosis: Cough[ICD10: R05] Diagnosis: Pneumonia due to other Gram-negative bacteria[ICD10: J15.6] Marcela Ha MD, [facility] CPT-4: 18099 11/12/2018 ([id number]) 89580 EST. PATIENT, LEVEL III Diagnosis: Pneumonia due to other Gram-negative bacteria[ICD10: J15.6] Diagnosis: Cough[ICD10: R05] Melida Ha MD, [facility] CPT-4: 78352 10/30/2018 ([id number]) 33025 EST. PATIENT, LEVEL II Diagnosis: Pain in joints of right hand[ICD10: M25.541] Diagnosis: Trigger finger, right middle finger[ICD10: M65.331] Marcela Ha MD, [facility] CPT-4: 90168 10/24/2018 ([id number]) 14992 EST. PATIENT, LEVEL IV Diagnosis: Essential (primary) hypertension[ICD10: I10] Diagnosis: Type 2 diabetes mellitus with foot ulcer[ICD10: E11.621] Melida Ha MD, [facility] CPT-4: 44047 10/23/2018 ([id number]) 12412 EST. PATIENT, LEVEL III Diagnosis: Cellulitis of right finger[ICD10: L03.011] Diagnosis: Type 2 diabetes mellitus with foot ulcer[ICD10: E11.621] Diagnosis: Pain in right hand[ICD10: M79.641] Melida Ha MD, [facility] CPT-4: 47096 10/21/2018 98521 EST. PATIENT, LEVEL III Diagnosis: Spontaneous ecchymoses[ICD10: R23.3] Diagnosis: Cellulitis of right lower limb[ICD10: L03.115] Diagnosis: Cellulitis of left lower limb[ICD10: L03.116] Madeline Ha MD, [facility] CPT-4: 25047 10/17/2018 ([id number]) 16867 EST. PATIENT, LEVEL III Diagnosis: Cough[ICD10: R05] Diagnosis: Acute bronchitis, unspecified[ICD10: J20.9] Melida Ha MD, [facility] CPT-4: 49759 10/14/2018 36246 EST. PATIENT, LEVEL III Diagnosis: Acute laryngopharyngitis[ICD10: J06.0] Diagnosis: Cough[ICD10: R05] Madeline Ha MD, [facility] CPT-4: 07941 09/30/2018 ([id number]) 07811 EST. PATIENT, LEVEL III Diagnosis: Acute recurrent maxillary sinusitis[ICD10: J01.01] Diagnosis: Cough[ICD10: R05] Diagnosis: Type 2 diabetes mellitus with hyperglycemia[ICD10: E11.65] Marcela Ha MD, [facility] CPT-4: 52141 09/09/2018 ([id number]) 23950 EST. PATIENT, LEVEL IV Diagnosis: Essential (primary) hypertension[ICD10: I10] Diagnosis: Mixed hyperlipidemia[ICD10: E78.2] Diagnosis: Bipolar disorder, current episode depressed, moderate[ICD10: F31.32] Diagnosis: Type 2 diabetes mellitus with other specified complication[ICD10: E11.69] Melida Ha MD, [facility] CPT-4: 64960 2017 ([id number]) 95430 EST. PATIENT, LEVEL III Diagnosis: Insomnia due to medical condition[ICD10: G47.01] Marcela Ha MD, [facility] CPT-4: 11721 07/16/2018 ([id number]) Miscellaneous no charge Diagnosis: Cough[ICD10: R05] Madeline Ha MD, [facility] CPT-4: 46448 07/01/2018 99787 EST. PATIENT, LEVEL III Diagnosis: Cough[ICD10: R05] Diagnosis: Acute laryngopharyngitis[ICD10: J06.0] Diagnosis: Other allergic rhinitis[ICD10: J30.89] Madeline Ha MD, [facility] CPT-4: 35750 06/28/2018 ([id number]) 90893 EST. PATIENT, LEVEL IV Diagnosis: Type 2 diabetes mellitus with hyperglycemia[ICD10: E11.65] Diagnosis: Essential (primary) hypertension[ICD10: I10] Melida Ha MD, [facility] CPT-4: 17333 06/18/2018 ([id number]) 96106 EST. PATIENT, LEVEL IV Diagnosis: Type 2 diabetes mellitus with hyperglycemia[ICD10: E11.65] Diagnosis: Essential (primary) hypertension[ICD10: I10] Diagnosis: Localized edema[ICD10: R60.0] Melida Ha MD, [facility] CPT- 4: 72369 06/04/2018 ([id number]) 61849 EST. PATIENT, LEVEL III Diagnosis: Type 2 diabetes mellitus with hyperglycemia[ICD10: E11.65] Diagnosis: Myalgia[ICD10: M79.1] Diagnosis: Pain in right hip[ICD10: M25.551] Diagnosis: Pain in left hip[ICD10: M25.552] Marcela Ha MD, [facility] CPT-4: 09941 05/13/2018 ([id number]) 85835 EST. PATIENT, LEVEL III Diagnosis: Myalgia[ICD10: M79.1] Diagnosis: Pain in right hip[ICD10: M25.551] Diagnosis: Pain in left hip[ICD10: M25.552] Marcela Ha MD, [facility] CPT-4: 57823 05/02/2018 ([id number]) 16560 EST. PATIENT, LEVEL IV Diagnosis: Essential (primary) hypertension[ICD10: I10] Diagnosis: Type 2 diabetes mellitus with hyperglycemia[ICD10: E11.65] Diagnosis: Major depressive disorder, single episode, moderate[ICD10: F32.1] Diagnosis: Myalgia[ICD10: M79.1] Marcela Ha MD, [facility] CPT-4: 18498 04/29/2018 ([id number]) 18992 EST. PATIENT, LEVEL IV Diagnosis: Type 2 diabetes mellitus with hyperglycemia[ICD10: E11.65] Diagnosis: Essential (primary) hypertension[ICD10: I10] Diagnosis: Major depressive disorder, single episode, moderate[ICD10: F32.1] Melida Ha MD, [facility] CPT-4: 75512 03/13/2018 ([id number]) 82798 EST. PATIENT, LEVEL III Diagnosis: Type 2 diabetes mellitus with hyperglycemia[ICD10: E11.65] Diagnosis: Bipolar disorder, current episode depressed, moderate[ICD10: F31.32] Diagnosis: Orthostatic hypotension[ICD10: I95.1] Marcela Ha MD, [facility] CPT-4: 31487 03/07/2018 ([id number]) 49125 EST. PATIENT, LEVEL IV Diagnosis: Type 2 diabetes mellitus with hyperglycemia[ICD10: E11.65] Diagnosis: Major depressive disorder, single episode, moderate[ICD10: F32.1] Diagnosis: Orthostatic hypotension[ICD10: I95.1] Diagnosis: Other fatigue[ICD10: R53.83] Marcela Ha MD, [facility] CPT-4: 16325 02/28/2018 94606 EST. PATIENT, LEVEL IV Diagnosis: Other fatigue[ICD10: R53.83] Diagnosis: Other malaise[ICD10: R53.81] Diagnosis: Gastro-esophageal reflux disease without esophagitis[ICD10: K21.9] Madeline Ha MD, [facility] CPT-4: 44140 02/13/2018 ([id number]) 55878 EST. PATIENT, LEVEL IV Diagnosis: Type 2 diabetes mellitus with foot ulcer[ICD10: E11.621] Diagnosis: Essential (primary) hypertension[ICD10: I10] Diagnosis: Gastro-esophageal reflux disease without esophagitis[ICD10: K21.9] Marcela Ha MD, [facility] CPT-4: 55238 01/29/2018 03504 EST. PATIENT, LEVEL III Diagnosis: Other malaise[ICD10: R53.81] Diagnosis: Other fatigue[ICD10: R53.83] Diagnosis: Pain in right shoulder[ICD10: M25.511] Diagnosis: Pain in left shoulder[ICD10: M25.512] Madeline Ha MD, [facility] CPT-4: 68472 08/27/2017 ([id number]) 52813 EST. PATIENT, LEVEL IV Diagnosis: Essential (primary) hypertension[ICD10: I10] Diagnosis: Type 2 diabetes mellitus with hyperglycemia[ICD10: E11.65] Diagnosis: VACCIN FOR INFLUENZA[ICD10: Z23] Melida Ha MD, [facility] CPT-4: 94832 08/16/2017 27745 EST. PATIENT, LEVEL III Diagnosis: Zoster without complications[ICD10: B02.9] Madeline Ha MD, [facility] CPT-4: 73473 07/26/2017 ([id number]) 31522 EST. PATIENT, LEVEL III Diagnosis: Cellulitis of right lower limb[ICD10: L03.115] Marcela Ha MD, [facility] CPT-4: 89330 07/03/2017 03817 EST. PATIENT, LEVEL II Diagnosis: Laceration without foreign body of left forearm, initial encounter[ ICD10: S51.812A] Marcela Ha MD, [facility] CPT-4: 37747 06/29/2017 ([id number]) 14461 EST. PATIENT, LEVEL III Diagnosis: Cellulitis of right lower limb[ICD10: L03.115] Diagnosis: Type 2 diabetes mellitus with foot ulcer[ICD10: E11.621] Marcela Ha MD , [facility] CPT-4: 51457 06/18/2017 ([id number]) 27810 EST. PATIENT, LEVEL IV Diagnosis: Cellulitis of right lower limb[ICD10: L03.115] Diagnosis: Acute laryngopharyngitis[ICD10: J06.0] Diagnosis: Gastro-esophageal reflux disease without esophagitis[ICD10: K21.9] Marcela Ha MD, [facility] CPT-4: 04155 06/07/2017 ([id number]) 04956 EST. PATIENT, LEVEL III Diagnosis: Type 2 diabetes mellitus with hyperglycemia[ICD10: E11.65] Diagnosis: Insect bite (nonvenomous) of abdominal wall, initial encounter[ICD10 : S30.861A] Marcela Ha MD, [facility] CPT-4: 69359 05/17/2017 ([id number]) 81464 EST. PATIENT, LEVEL III Diagnosis: Allergic contact dermatitis due to plants, except food[ICD10: L23.7] Melida Ha MD, [facility] CPT-4: 54554 05/04/2017 ([id number]) 11028 EST. PATIENT, LEVEL III Diagnosis: Essential (primary) hypertension[ICD10: I10] Marcela Ha MD, [facility] CPT-4: 33940 03/15/2017 ([id number]) 59030 EST. PATIENT, LEVEL III Diagnosis: Cough[ICD10: R05] Diagnosis: Essential (primary) hypertension[ICD10: I10] Marcela Ha MD, [facility] CPT-4: 08924 03/01/2017 ([id number]) 64716 EST. PATIENT, LEVEL III Diagnosis: Cough[ICD10: R05] Diagnosis: Nasal congestion[ICD10: R09.81] Diagnosis: Acute recurrent maxillary sinusitis[ICD10: J01.01] Marcela Ha MD, [facility] CPT-4: 57621 02/16/2017 ([id number]) 52469 EST. PATIENT, LEVEL III Diagnosis: Type 2 diabetes mellitus with hyperglycemia[ICD10: E11.65] Marcela Ha MD [facility] CPT-4: 22594 02/12/2017 ([id number]) 93051 EST. PATIENT, LEVEL IV Diagnosis: Type 2 diabetes mellitus with hyperglycemia[ICD10: E11.65] Diagnosis: Muscle weakness (generalized)[ICD10: M62.81] Diagnosis: Disorientation, unspecified[ICD10: R41.0] Marcela Ha MD [facility] CPT-4: 10643 02/05/2017 ([id number]) Patient admitted to the hospital from clinic (NO CHARGE) Diagnosis: Type 2 diabetes mellitus with hyperglycemia[ICD10: E11.65] Diagnosis: Disorientation, unspecified[ICD10: R41.0] Diagnosis: Muscle weakness (generalized)[ICD10: M62.81] Marcela Ha MD [facility] CPT-4: 48877A 01/29/2017 ([id number]) Miscellaneous no charge Diagnosis: Cellulitis of right lower limb[ICD10: L03.115] Marcela Ha MD [facility] CPT-4: 05197 10/13/2016 ([id number]) Miscellaneous no charge Diagnosis: Type 2 diabetes mellitus with foot ulcer[ICD10: E11.621] Diagnosis: Pain in right foot[ICD10: M79.671] Marcela Ha MD [facility] CPT-4: 67156 10/09/2016 53796 EST. PATIENT, LEVEL II Diagnosis: Cellulitis of right lower limb[ICD10: L03.115] Marcela Ha MD [facility] CPT-4: 51320 10/06/2016 ([id number]) 99035 EST. PATIENT, LEVEL IV Diagnosis: Low back pain[ICD10: M54.5] Diagnosis: Other deformities of toe(s) (acquired), left foot[ICD10: M20.5X2] Diagnosis: Type 2 diabetes mellitus with foot ulcer[ICD10: E11.621] Marcela Ha MD [facility] CPT-4: 38480 07/18/2016 ([id number]) 04850 EST. PATIENT, LEVEL III Diagnosis: Type 2 diabetes mellitus with hyperglycemia[ICD10: E11.65] Marcela Ha MD, [facility] CPT-4: 50250 06/22/2016 ([id number]) 51416 EST. PATIENT, LEVEL IV Diagnosis: Type 2 diabetes mellitus with hyperglycemia[ICD10: E11.65] Diagnosis: Mixed hyperlipidemia[ICD10: E78.2] Diagnosis: Other hemoglobinopathies[ICD10: D58.2] Marcela Ha MD, [facility] CPT-4: 45295 05/23/2016 ([id number]) 42742 EST. PATIENT, LEVEL IV Diagnosis: Type 2 diabetes mellitus with other specified complication[ICD10: E11.69] Diagnosis: Dehydration[ICD10: E86.0] Marcela Ha MD, [facility] CPT-4: 10830 05/15/2016 ([id number]) OFFICE VISIT, NEW - LEVEL 3 Diagnosis: Allergic contact dermatitis due to plants, except food[ICD10: L23.7] Madeline Ha MD, [facility] CPT-4: 03311 01/20/2016 Plan of Care Planned Activity Notes Codes Status Date Appointment: Marcela Oshea WPtel: [phone] (30 min) Complex 02/17/2019 Appointment: Marcela Oshea WPtel: [address] [place], [place] [phone] (30 min) Complex 01/14/2019 Visit Plan: Hypertension [...] Summary Completed 01/13/2019 Appointment: Marcela Oshea WPtel: [phone] ([place] min) Complex 01/10/2019 Visit Plan: Epigastric pain -start protonix daily- monitor symptoms Chest pain -work up negative done last week with Madeline-recommend appt with Dr Brennan Joint pain-check inflammation makers DM-check Hgb a1c 12/31/2018 Appointment: Marcela Oshea WPtel: [phone] [phone] (15 min) Moderate 12/31/2018 Patient Education: Patient Medication Summary Completed 12/31/2018 Visit Plan: chest pain - EKG and cardiac enzymes OK - discussed with Dr. Ha - will treat for pneumonia - pt is to notify clinic if symptoms do not improve, if they worsen, or with any changes questions, or concerns. 12/26/2018 Appointment: Madeline Kennedy [phone] [place] (30 min) Complex 12/26/2018 Patient Education: Patient Medication Summary Completed 12/26/2018 Referral: Andrew Cross Patient informed. Referral info faxed. Completed Visit Plan: cough - improved - continue with inhalers - continue with symbicort - rx for proair for PRN use when pt is feelign short of breath with activity. 11/18/2018 Appointment: Melida Ha WPtel: [phone] [facility] (15 min) Moderate 11/18/2018 Patient Education: [...] Marcela Oshea WPtel: [phone] (30 min) Complex 11/12/2018 Patient Education: Patient Medication Summary Completed 11/12/2018 Patient Education: Symbicort - 18-64 - eCopay Completed 11/12/2018 Care Plan: Referral Order SNOMED-CT : [id number] Pending 11/12/2018 Referral: Niko Mantilla Referral Completed 11/04/2018 Visit Plan: Pneumonia, cough - recent diagnosis of Moraxella Cattharalis - with sensitivity to levaquin - will give 2 wks of levaquin since he had improvement but no full resolution of symptoms. 10/30/2018 Appointment: Melida Ha WPtel: [id number] 30 min appointments only in this slot [...] Marcela Oshea WPtel: [id number] (30 min) Complex 10/24/2018 Patient Education: Patient Medication Summary Completed 10/24/2018 Care Plan: Referral Order SNOMED-CT : [id number] Pending 10/24/2018 Visit Plan: Hypotension - discussed [...] controlled. 10/23/2018 Appointment: Melida Ha WPtel: [phone] [facility] [place] (15 min) Moderate 10/23/2018 Patient Education: [...] and plan. 10/21/2018 Appointment: Marcel[facility] Oshe[phone] [id number] [place] (30 min) Complex 10/21/2018 Patient Education: [...] discharge. 10/17/2018 Appointment: Madeline Kennedy WPtel: [id number] [facility] (15 min) Moderate 10/17/2018 Patient Education: Patient [...] Marcela Oshea WPtel: [facility] [id number] (15 min) Moderate 10/14/2018 Patient Education: Patient Medication Summary Completed 10/14/2018 Care Plan: CHEST X-RAY 2VW FRONTAL&LATL LOINC : 10878-8 Pending 10/14/2018 Visit Plan: URI - Pt [...] spray. 09/30/2018 Appointment: Madeline Kennedy WPtel: [phone] [facility] (15 min) Moderate 09/30/2018 Patient Education: Patient [...] Hgb A1C 09/09/2018 Appointment: Marcela Oshea WPtel: [facility]5 [facility] [place] [address] (15 min) Moderate 09/09/2018 Patient Education: Patient Medication Summary Completed 09/09/2018 Patient Education: Patient Medication Summary Completed 09/06/2018 Patient Education: Cholesterol Management Completed 09/06/2018 Care Plan: Comp Metabolic Pending 09/06/2018 Care Plan: Cbc With Differential Pending 09/06/2018 Care Plan: %Hba1C LOINC : 60780-6 Pending 09/06/2018 Care Plan: Tsh Pending 09/06/2018 Care Plan: Lipid Pending 09/06/2018 Appointment: Marcela Oshea WPtel: [facility]5 [phone] [place] (15 min) Moderate 08/26/2018 Appointment: Marcela Oshea WPtel: [facility]5 [phone] [place] (15 min) Moderate 08/23/2018 Visit Plan: [...] clinic. 07/22/2018 Appointment: Mel[facility] Ha [facility]Ptel: [phone] [facility] (15 min) Moderate 07/22/2018 Patient Education: Patient [...] time insomnia. 07/16/2018 Appointment: Marcela Oshea WPtel: [phone] [phone] (30 min) Complex 07/16/2018 Patient Education: Patient Medication Summary Completed 07/16/2018 Visit Plan: cough - improved - notify clinic if symptoms do not completely resolve, or with any questions or concerns. 07/01/2018 Appointment: [facility] Kennedy [facility]el[phone] [facility] (15 min) Moderate 07/01/2018 Patient Education: Patient [...] spray. 06/28/2018 Appointment: Madeline Kennedy WPtel: [phone] [facility]6676[facility] (15 min) Moderate 06/28/2018 Patient Education: Patient Medication Summary Completed 06/28/2018 Patient Education: Patient Medication Summary Completed 06/21/2018 Care Plan: Annabel RICKS [place] Pending 06/21/2018 Visit Plan: Diabetes Mellitus - [...] home. 06/18/2018 Appointment: Melida Ha WPtel: [phone] [facility] (15 min) Moderate 06/18/2018 Patient Education: Patient [...] improves. 06/04/2018 Appointment: Melida Ha WPtel: [phone] [facility]6[address] [place] (15 min) Moderate 06/04/2018 Patient Education: Patient [...] allow for greater blood glucose control. Joint dtyz-qkwamkte-rmbuhrv- symptoms have improved -stop meloxicam due to upset stomach-call if symptoms return 05/13/2018 Appointment: Marcela Oshea WPtel: [phone] [phone] (30 min) Complex 05/13/2018 Patient Education: Patient Medication Summary Completed 05/13/2018 Visit Plan: Bilateral hip vgyx-ffzkgxkf-fprliis IM injection administered today for c/o continued myalgia/arthralgia. Patient to start taking Meloxicam 15mg PO daily. Advised to return to clinic if symptoms do not improve. 05/02/2018 Appointment: Marcela Oshea WPtel: [phone] [phone] (30 min) Complex 05/02/2018 Patient Education: Patient [...] readings at home. Diabetes Mellitus -check labs Ugnxcsmz-inmgjra-qojb bite-rx for doxycycline-follow up in 2 weeks 04/29/2018 Appointment: Marcela Oshea WPtel: [phone] [phone] (15 min) Moderate 04/29/2018 Patient Education: Patient Medication Summary Completed 04/29/2018 Appointment: Melida Ha WPtel: [phone] [facility] [place] (15 min) Moderate 04/15/2018 Appointment: Marcela Oshea WPtel: [phone] [phone] [place] (30 min) Complex 03/21/2018 Visit Plan: [...] on cymbalta 03/13/2018 Appointment: Melida Ha WPtel: [phone] [facility] [place] (30 min) Complex 03/13/2018 Patient Education: Patient Medication Summary Completed 03/13/2018 Visit Plan: DM-continue same medications-monitor blood sugars routinely as directed -rx for new glucometer and test strips provided Bipolar-currently depressed-patient start on vraylar-follow up in 2 weeks, sooner if needed. Patient and verbalied understanding of plan. Hypotension- stay off losartan 03/07/2018 Appointment: Marcela Oshea WPtel: [phone] [phone] (30 min) Complex 03/07/2018 Patient Education: Patient Medication Summary Completed 03/07/2018 Appointment: LelandMelida WPtel: [phone] [facility] (15 min) Moderate 03/04/2018 Visit Plan: Hypotension-continue [...] patient. 02/28/2018 Appointment: Marcela Oshea WPtel: [phone] [phone] [place] (30 min) Complex 02/28/2018 Patient Education: [...] improving. 02/13/2018 Appointment: Madeline Kennedy WPtel: [phone] [facility] (15 min) Moderate 02/13/2018 Patient Education: Patient Medication Summary Completed 02/13/2018 Referral: Sun Glynn Patient informed. Referral info faxed. Completed Visit Plan: DM-weight loss-not checking blood sugars- patient sent for labs today HTN-low amphz-ivcomio-qcjir labs Callus of foot and fissue of [...] Marcela Oshea WPtel: [facility]5 [phone] [place] (30 min) Complex 01/29/2018 Patient Education: Patient Medication Summary Completed 01/29/2018 Care Plan: Comp Metabolic Cancelled 01/29/2018 Care Plan: Cbc With Differential Cancelled 01/29/2018 Care Plan: %Hba1C LOINC : 09930-3 Cancelled 01/29/2018 Care Plan: Referral Order SNOMED-CT : [id number] Cancelled 01/29/2018 Visit Plan: Fatigue, malaise, joint [...] concerns. 08/27/2017 Appointment: Madeline Kennedy WPtel: [phone] [facility] [place] (15 min) Moderate 08/27/2017 Patient Education: [...] - 08/16/2017 Appointment: Melida Ha WPtel: [phone] [facility] [place] (30 min) Complex 08/16/2017 Patient Education: Patient Medication Summary Completed 08/16/2017 Patient Education: Obesity Completed 08/16/2017 Appointment: Madeline Kennedy WPtel: [phone] [facility] (30 min) Complex 08/07/2017 Visit Plan: Shingles [...] contagious. 07/26/2017 Appointment: Madeline Kennedy WPtel: [phone] [facility] [place] (15 min) Moderate 07/26/2017 Patient Education: Patient Medication Summary Completed 07/26/2017 Visit Plan: Cellulitis right foot-cultured today in the office-home health to reapply wound vac--appt with wound care on to evaluate for debridement- 07/03/2017 Appointment: Marcela Oshea WPtel: [phone] [phone] [place] (30 min) Complex 07/03/2017 Patient Education: Patient Medication Summary Completed 07/03/2017 Visit Plan: Abrasion left arm - Pt was instructed to keep the wound clean, wash with antibacterial soap, use triple antibiotic ointment, call if redness, pustular drainage, or any other acute concerns. 06/29/2017 Appointment: Marcela Oshea WPtel: [address] [place], [place] [phone] (15 min) Moderate 06/29/2017 Patient Education: Patient [...] of plan. 06/18/2017 Appointment: Marcela Oshea WPtel: [address] [place], [place] [phone] (15 min) Moderate 06/18/2017 Patient Education: Patient [...] diet-start prilosec 06/07/2017 Appointment: Marcela Oshea WPtel: [address] [place], [place] [phone] (10 min) Simple 06/07/2017 Patient Education: Patient [...] bite-continue doxycycline 05/17/2017 Appointment: Marcela Oshea WPtel: [address] [place], [place] [phone] (30 min) Complex 05/17/2017 Patient Education: [...] [facility]. 05/04/2017 Appointment: Marcela Oshea WPtel: [address] [place], [place] [phone] (30 min) Complex 05/04/2017 Patient Education: Patient [...] home. Cough-resolved 03/15/2017 Appointment: Marcela Oshea WPtel: [address] [place], [place] [phone] (15 min) Moderate 03/15/2017 Patient Education: Patient Medication Summary Completed 03/15/2017 Appointment: Marcela Oshea WPtel: [address] [place], [place] [phone] (30 min) Complex 03/12/2017 Visit Plan: Feng [...] as discussed 02/16/2017 Appointment: Marcela Oshea WPtel: [address] [place] [address] (15 min) Moderate 02/16/2017 Patient Education: Patient [...] less controlled. 02/12/2017 Appointment: Marcela Oshea WPtel: [address] [place] [address] (30 min) Complex 02/12/2017 Patient Education: Patient Medication Summary Completed 02/12/2017 Appointment: Marcela Oshea WPtel: [address] [place] [address] (30 min) Complex 02/06/2017 Visit Plan: Diabetes [...] Marcela Oshea WPtel: [facility]5 [phone] [place] (30 min) Complex 02/05/2017 Patient Education: Patient Medication Summary Completed 02/05/2017 Appointment: Marcela Oshea WPtel: [facility]5 [phone] [place] (30 min) Complex 01/30/2017 Visit Plan: Acute confusion-uncontrolled diabetes- chronically noncompliant with treatment and stopped his insulin several months ago-r/o stroke vs DKA-Dr Ha in to evaluate patient-plan to admit for further work up and treatment-patient's called and she transported him to the hospital 01/29/2017 Appointment: Marcela Oshea WPtel: [facility]8 [phone] [place] (30 min) Complex 01/29/2017 Patient Education: Patient Medication Summary Completed 01/29/2017 Patient Education: Obesity Completed 01/29/2017 Visit Plan: Right foot pain-MRI shows foreign body-appt with Dr Grewal for evaluation on Sunday. 10/13/2016 Appointment: Marcela Oshea WPtel: [facility]5 [phone] [place] (15 min) Moderate 10/13/2016 Patient Education: Patient Medication Summary Completed 10/13/2016 Appointment: Marcela Oshea WPtel: [address] [place], [place] [phone] [place] (30 min) Complex 10/12/2016 Visit Plan: Right foot qnqv-fqydcvla-rhisq washer dropped on foot-xray negative but pain continues to increase-recommend MRI of foot for further evaluation-refer to wound care for lesions on right foot, patient has diabetes and history of osteomyelitis-culture obtained today-continue oral abx- follow up in the office on , sooner if needed 10/09/2016 Visit Plan: Right foot yfqm-omennhel-asdim washer dropped on foot-xray negative but pain continues to increase-recommend MRI of foot for further evaluation-refer to wound care for lesions on right foot, patient has diabetes and history of osteomyelitis-culture obtained today-continue oral abx- follow up in the office on , sooner if needed 10/09/2016 Visit Plan: Right foot ihov-ffxzeplb-iswlp washer dropped on foot-xray negative but pain continues to increase-recommend MRI of foot for further evaluation-refer to wound care for lesions on right foot, patient has diabetes and history of osteomyelitis-culture obtained today-continue oral abx- follow up in the office on , sooner if needed 10/09/2016 Appointment: Marcela Oshea WPtel: [facility]7 [phone] (30 min) Complex 10/09/2016 Patient Education: Patient Medication Summary Completed 10/09/2016 Visit Plan: Cellulitis - continue with oral antibiotics as previously directed, return to clinic as previously directed, call for acute change in symptoms, worsening redness, warmth, discharge. 10/06/2016 Appointment: Marcela Oshea WPtel: [address] [place], [place] [phone] (10 min) Simple 10/06/2016 Patient Education: Patient Medication Summary Completed 10/06/2016 Appointment: Marcela Oshea WPtel: [address] [place] [phone] (30 min) Complex 08/24/2016 Referral: Sun Glynn Referral Completed 07/21/2016 Visit Plan: Low back pain- history of spinal fusion- patient for xray lumbar spine-RX sent to [facility] and instructed on use-topical voltaren samples provided and instructed on use. Ok to use tylenol as needed as well. The patient is to call the office if the pain is worsening or does not improve. Pressure ulcer left 4th toe-refer to Dr Glynn for evaluation 07/18/2016 Appointment: Marcela Oshea WPtel: [facility]7 [phone] (30 min) Complex 07/18/2016 Patient Education: Patient Medication Summary Completed 07/18/2016 Patient Education: Obesity Completed 07/18/2016 Care Plan: Referral Order SNOMED-CT : [id number] Cancelled 07/18/2016 Visit Plan: Diabetes Mellitus - [...] control. 06/22/2016 Appointment: Marcela Oshea WPtel: [phone] [phone] (30 min) Complex 06/22/2016 Patient Education: Patient [...] today 05/23/2016 Appointment: Marcela Oshea WPtel: [phone] [phone] (30 min) Complex 05/23/2016 Patient Education: Patient [...] Marcela Oshea WPtel: [phone] (15 min) Moderate 05/15/2016 Patient Education: Patient [...] you want blue goo called into [facility]. 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 Low back pain- history of spinal fusion-patient for xray lumbar spine-RX sent to [facility] and instructed on use-topical voltaren samples [...] for fracture from injury . Right foot ypaz-aomicxjg-xrfio washer dropped on foot-xray negative but pain [...] for fracture from injury . Right foot xacn-yfwosmcp-ngtgq washer dropped on foot-xray negative but pain [...] for fracture from injury . 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 Bilateral hip xtvl-wbdzdwty-cmardap IM injection administered today for c/o continued myalgia/arthralgia. Patient to start taking Meloxicam 15mg PO daily. Advised to return to clinic if symptoms do not improve. . DM-weight loss-not checking blood sugars-patient sent for labs today HTN-low qgsvt-tinqwdy-xzsve labs Callus of foot and fissue of [...] readings are starting to become less controlled. Spcfhoqcs-zhxudypt-xoabnkiq to monitor Generalized weakness-refer for PT-patient refuses [...] allow for greater blood glucose control. Joint kgfj-lguryymj-xvrvlar-symptoms have improved -stop meloxicam due to upset [...] readings at home. Diabetes Mellitus -check labs Psybwnis-zytjtam-azfz bite-rx for doxycycline-follow up in 2 weeks [...]
--- OUTSIDE RECORDS SUMMARY | 2019-03-10 10:29 | XMS REPORT | CCD ---
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 Name Role Phone PP Unavailable CCM Unavailable Summary Purpose Interface Exchange Insurance Providers Payer name Policy type / Coverage type Covered democrat ID Effective Begin Date Effective End Date Cache Unbxd Commercial Insurance [id number] 2018 Unknown Family history Father Diagnosis Age At Onset Hyperlipidemia Unknown Heart Attack Unknown Mother Diagnosis Age At Onset Hypertension Unknown Social History Social History Element Codes Description Effective Dates Marital status Unknown Mignon 01/20/2016 Number of children Unknown 4 01/20/2016 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/[address]: 040727660 Never smoker 01/20/[address]: 034343575 Never drinks alcohol 01/20/2016 Allergies, Adverse Reactions, Alerts Substance Reaction Codes Entered Date Inactivated Date Status * NO KNOWN DRUG ALLERGIES Unknown 05/23/2016 No Inactive Date Active Past Medical History Illness Codes Condition Status Onset Date Resolved Date 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 [...] Problems Condition Codes Effective Dates Condition Status 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 [...] 200 unit/mL (3 mL) subcutaneous pen RxNorm: 4663659 50 Unit(s) SQ daily 01/08/2019 05/07/2019 Active please give him 30 day supply Protonix 40 mg tablet,delayed release RxNorm: 994328 1 Tablet(s) PO daily 12/31/2018 01/29/2019 Inactive Tresiba FlexTouch U-200 insulin 200 unit/mL (3 mL) subcutaneous pen RxNorm: 9875481 50 Unit(s) SQ daily 12/31/2018 01/07/2019 Inactive please give him 30 day supply Augmentin 500 mg-125 mg tablet RxNorm: 088868 1 Tablet(s) PO TID 12/26/2018 01/04/2019 Inactive Augmentin 500 mg-125 mg tablet RxNorm: 990628 1 Tablet(s) PO TID 12/26/2018 12/25/2018 Inactive ProAir HFA 90 mcg/actuation aerosol inhaler RxNorm: 2915176 2 Puff(s) INH QID as needed 11/18/2018 No Stop Date Active Lyrica 50 mg capsule RxNorm: 583325 Capsule(s) PO daily 201802/08/2019 Inactive Cymbalta 30 mg capsule,delayed release RxNorm: 533021 1 Capsule(s) PO QAM 11/13/2018 06/10/2019 Active Lyrica 50 mg capsule RxNorm: 949159 Capsule(s) PO daily 201811/12/2018 Inactive Symbicort 160 mcg-4.5 mcg/actuation HFA aerosol inhaler RxNorm: 5128331 2 Puff(s) INH BID 11/12/2018 12/11/2018 Inactive albuterol sulfate 2.5 mg/3 mL (0.083 %) solution for nebulization RxNorm: 627007 3 Milliliter(s) INH UD 11/07/2018 No Stop Date Active azithromycin 500 mg tablet RxNorm: 974004 500mg on day 1 then 250 mg daily x 4 more day Tablet(s) PO 11/07/20182018 Inactive 500mg on day 1 and then 250mg daily 2-4 cefdinir 300 mg capsule RxNorm: 724965 1 Capsule(s) PO BID 01/201911/06/2018 Inactive azithromycin 500 mg tablet RxNorm: 725344 500mg on day 1 then 250 mg daily x 4 more day Tablet(s) PO 11/07/20182018 Inactive 500mg on day 1 and then 250mg daily 2-4 cefdinir 300 mg capsule RxNorm: 828439 1 Capsule(s) PO BID 01/201911/13/2018 Inactive Levaquin 500 mg tablet RxNorm: 449393 1 Tablet(s) PO daily TAKE ONE TABLET BY MOUTH DAILY UNTIL GONE 10/31/20182018 Inactive Levaquin 500 mg tablet RxNorm: 584259 1 Tablet(s) PO daily 11/12/2018 Inactive valsartan 80 mg tablet RxNorm: 648812 1/2 Tablet(s) PO daily 04/20/2019 Active doxycycline hyclate 100 mg tablet RxNorm: 1293657 1 Tablet(s) PO BID 10/21/2018 10/27/2018 Inactive ketorolac 60 mg/2 mL intramuscular solution RxNorm: 6339568 Milliliter(s) IM 10/21/2018 10/21/2018 Inactive Levaquin 500 mg tablet RxNorm: 323558 1 Tablet(s) PO daily 10/31/2018 Inactive Tessalon Perles 100 mg capsule RxNorm: 640634 1-2 Capsule(s) PO TID PRN 10/14/2018 No Stop Date Active albuterol sulfate 2.5 mg/3 mL (0.083 %) solution for nebulization RxNorm: 849556 3 Milliliter(s) INH UD 10/14/201812/2018 Inactive Levaquin 500 mg tablet RxNorm: 034148 1 Tablet(s) PO daily 08/201810/16/2018 Inactive Coreg 6.25 mg tablet RxNorm: 483779 TAKE ONE TABLET BY MOUTH TWICE A DAY 09/30/2018 03/28/2019 Active albuterol sulfate 2.5 mg/3 mL (0.083 %) solution for nebulization RxNorm: 138121 3 Milliliter(s) INH UD 09/30/201807/2018 Inactive Kenalog 40 mg/mL suspension for injection RxNorm: 4284882 1.5 Milliliter(s) Inj 09/30/2018 09/30/2018 Inactive Keflex 500 mg capsule RxNorm: 113128 1 Capsule(s) PO TID 201710/03/2018 Inactive prednisone 20 mg tablet RxNorm: 283091 2 Tablet(s) PO daily 09/29/2018 Inactive Kenalog 40 mg/mL suspension for injection RxNorm: 2497936 Milliliter(s) Inj 09/11/2018 09/11/2018 Inactive Zyrtec 10 mg tablet RxNorm: 8670427 1 Tablet(s) PO daily 09/0910/08/2018 Inactive Keflex 500 mg capsule RxNorm: 948798 1 Capsule(s) PO TID 201709/15/2018 Inactive Tresiba FlexTouch U-200 insulin 200 unit/mL (3 mL) subcutaneous pen RxNorm: 2276935 50 Unit(s) SQ daily 08/30/2018 08/29/2018 Inactive please give him 30 day supply Tresiba FlexTouch U-200 insulin 200 unit/mL (3 mL) subcutaneous pen RxNorm: 7613573 50 Unit(s) SQ daily 08/30/2018 09/28/2018 Inactive please give him 30 day supply Novolog Flexpen U-100 Insulin aspart 100 unit/mL subcutaneous RxNorm: 4598088 8 Unit(s) SQ AC 08/13/2018 No Stop Date Active Novolog Flexpen U-100 Insulin aspart 100 unit/mL subcutaneous RxNorm: 9171660 8 Unit(s) SQ AC 07/22/20182017 Inactive this is an update on his medication Novolog Flexpen U-100 Insulin aspart 100 unit/mL subcutaneous RxNorm: 0784071 12 Unit(s) SQ AC 07/05/20182017 Inactive this is an update on his medication Ronaldujose SoloStar U-300 Insulin 300 unit/mL (1.5 mL) subcutaneous pen RxNorm: 6543647 INJECT 50 UNITS UNDER THE SKIN DAILY 07/01/2018 08/29/2018 Inactive Mucinex 600 mg tablet, extended release RxNorm: 469134 1 Tablet(s) PO BID 06/28/2018 07/04/2018 Inactive Zofran 4 mg tablet RxNorm: 025104 1 Tablet(s) PO TID as needed nausea 06/28/2018 07/02/2018 Inactive Kenalog 40 mg/mL suspension for injection RxNorm: 2810800 Milliliter(s) Inj 06/28/2018 06/28/2018 Inactive Flonase Allergy Relief 50 mcg/actuation nasal spray, suspension RxNorm: 6871707 1 [place] NASAL BID 06/28/20182017 Inactive Lyrica 50 mg capsule RxNorm: 629556 Capsule(s) PO daily 201707/06/2018 Inactive Novolog Flexpen U-100 Insulin aspart 100 unit/mL subcutaneous RxNorm: 4514081 10 Unit(s) SQ AC 06/18/20182017 Inactive this is an update on his medication Lasix 20 mg tablet RxNorm: 792519 1 Tablet(s) PO BIW 201707/02/2018 Inactive atorvastatin 80 mg tablet RxNorm: 262512 1 Tablet(s) PO QHS 04/201812/06/2018 Inactive clonazepam 1 mg tablet RxNorm: 004262 2 Tablet(s) PO HS 201706/04/2019 Active clonazepam 1 mg tablet RxNorm: 207150 2 Tablet(s) PO HS as needed 06/10/2018 06/09/2018 Inactive Lyrica 50 mg capsule RxNorm: 095612 Capsule(s) PO daily 201707/08/2018 Inactive Lasix 20 mg tablet RxNorm: 323830 1 Tablet(s) PO TIW 201706/11/2018 Inactive Toujeo SoloStar U-300 Insulin 300 unit/mL (1.5 mL) subcutaneous pen RxNorm: 9461054 50 Unit(s) SQ daily 05/07/2018 06/30/2018 Inactive meloxicam 15 mg tablet RxNorm: 026365 15 Milligram(s) PO daily 05/02/2018 05/12/2018 Inactive ketorolac 30 mg/mL injection solution RxNorm: 940642 2 Milliliter(s) Inj 05/02/2018 05/02/2018 Inactive Toujeo SoloStar U-300 Insulin 300 unit/mL (1.5 mL) subcutaneous pen RxNorm: 5948707 45 Unit(s) daily 04/29/2018 Inactive clonazepam 1 mg tablet RxNorm: 015403 1 Tablet(s) PO Q8 as needed 04/29/2018 06/09/2018 Inactive doxycycline hyclate 100 mg tablet RxNorm: 6682640 1 Tablet(s) PO BID 04/29/2018 05/12/2018 Inactive Cymbalta 30 mg capsule,delayed release RxNorm: 655785 1 Capsule(s) PO QAM 03/13/2018 10/08/2018 Inactive Lexapro 10 mg tablet RxNorm: 160039 1 Tablet(s) PO QPM 201703/03/2018 Inactive Toujeo SoloStar U-300 Insulin 300 unit/mL (1.5 mL) subcutaneous pen RxNorm: 8718224 20 Unit(s) daily 02/28/2018 Inactive Protonix 40 mg tablet,delayed release RxNorm: 314305 1 Tablet(s) PO daily 01/29/2018 06/09/2018 Inactive clonazepam 1 mg tablet RxNorm: 266289 1 Tablet(s) PO Q8 as needed 12/12/2017 03/10/2018 Inactive Tamiflu 75 mg capsule RxNorm: 726427 1 Capsule(s) PO BID 201712/03/2017 Inactive doxycycline hyclate 100 mg capsule RxNorm: 4561578 1 Capsule(s) PO BID 09/07/2017 09/20/2017 Inactive doxycycline hyclate 100 mg capsule RxNorm: 6215950 1 Capsule(s) PO BID 08/27/2017 09/06/2017 Inactive prednisone 20 mg tablet RxNorm: 551123 2 Tablet(s) PO daily 08/31/2017 Inactive clopidogrel 75 mg tablet RxNorm: 946066 1 Tablet(s) PO daily 06/09/2018 Inactive atorvastatin 40 mg tablet RxNorm: 374647 1 Tablet(s) PO QHS 02/27/2018 Inactive losartan 25 mg tablet RxNorm: 599310 TAKE ONE TABLET BY MOUTH DAILY 08/22/2017 06/09/2018 Inactive Toujeo SoloStar 300 unit/mL (1.5 mL) subcutaneous insulin pen RxNorm: 7176237 45 Unit(s) daily 08/17/2017 08/20/2017 Inactive mupirocin 2 % topical ointment RxNorm: 074242 1 Application TOP TID to the lesions on chest 08/16/2017 08/25/2017 Inactive Toujeo SoloStar 300 unit/mL (1.5 mL) subcutaneous insulin pen RxNorm: 6650092 40 Unit(s) daily 08/16/2017 08/16/2017 Inactive valacyclovir 1 gram tablet RxNorm: 070676 1 Tablet(s) PO TID 08/01/2017 Inactive clonazepam 1 mg tablet RxNorm: 155686 1 Tablet(s) PO Q8 as needed 07/03/2017 09/30/2017 Inactive Levaquin 500 mg tablet RxNorm: 584698 1 Tablet(s) PO daily 06/25/2017 Inactive Levaquin 500 mg tablet RxNorm: 758564 1 Tablet(s) PO daily 06/21/2017 Inactive losartan 25 mg tablet RxNorm: 144632 1 Tablet(s) PO daily 201608/16/2017 Inactive nystatin 100,000 unit/mL oral suspension RxNorm: 372675 5 Milliliter(s) PO QID Swish et swallow 06/18/2017 06/17/2017 Inactive nystatin 100,000 unit/mL oral suspension RxNorm: 600544 5 Milliliter(s) PO QID Swish et swallow 06/18/2017 06/27/2017 Inactive Cipro 500 mg tablet RxNorm: 658621 1 Tablet(s) PO BID 201606/18/2017 Inactive Cipro 500 mg tablet RxNorm: 293194 1 Tablet(s) PO BID 201606/11/2017 Inactive Toujeo SoloStar 300 unit/mL (1.5 mL) subcutaneous insulin pen RxNorm: 6052626 INJECT 10 UNITS UNDER THE SKIN DAILY 06/12/2017 08/15/2017 Inactive Keflex 500 mg capsule RxNorm: 576319 1 Capsule(s) PO TID 201606/13/2017 Inactive doxycycline hyclate 100 mg capsule RxNorm: 7341083 1 Capsule(s) PO BID 05/17/2017 05/21/2017 Inactive doxycycline hyclate 100 mg capsule RxNorm: 4410194 1 Capsule(s) PO BID 05/11/2017 05/16/2017 Inactive losartan 25 mg tablet RxNorm: 071282 1 Tablet(s) PO daily 201606/17/2017 Inactive atorvastatin 40 mg tablet RxNorm: 786438 1 Tablet(s) PO daily 03/01/2017 08/23/2017 Inactive clopidogrel 75 mg tablet RxNorm: 047544 1 Tablet(s) PO daily 08/23/2017 Inactive Flonase Allergy Relief 50 mcg/actuation nasal spray, suspension RxNorm: 8624800 2 [place] NASAL daily 02/16/20172016 Inactive Augmentin 875 mg-125 mg tablet RxNorm: 483059 1 Tablet(s) PO BID 02/16/2017 02/22/2017 Inactive GET PROBIOTIC TO TAKE WHILE ON ABX Tamiflu 75 mg capsule RxNorm: 552654 1 Capsule(s) PO BID 201602/20/2017 Inactive ceftriaxone 500 mg solution for injection RxNorm: 5407466 1 Milliliter(s) Inj 02/16/2017 02/16/2017 Inactive Kenalog 40 mg/mL suspension for injection RxNorm: 1844173 1 Milliliter(s) Inj 02/16/2017 02/16/2017 Inactive Toujeo SoloStar 300 unit/mL (1.5 mL) subcutaneous insulin pen RxNorm: 6776261 25 Unit(s) SQ QAM 02/12/2017 06/10/2017 Inactive Toujeo SoloStar 300 unit/mL (1.5 mL) subcutaneous insulin pen RxNorm: 9405187 10 Unit(s) SQ QAM 02/05/2017 02/11/2017 Inactive lisinopril 10 mg tablet RxNorm: 489568 1 Tablet(s) PO daily 02/28/2017 Inactive atorvastatin 40 mg tablet RxNorm: 278971 1 Tablet(s) PO daily 02/01/2017 02/28/2017 Inactive doxycycline hyclate 100 mg capsule RxNorm: 1121202 1 Capsule(s) PO BID 02/01/2017 02/10/2017 Inactive clonazepam 1 mg tablet RxNorm: 234711 1 Tablet(s) PO Q8 as needed 10/09/2016 01/05/2017 Inactive ceftriaxone 1 gram solution for injection RxNorm: 1136733 Inj 10/06/2016 10/06/2016 Inactive cyclobenzaprine 10 mg tablet RxNorm: 475857 1/2-1 Tablet(s) PO TID PRN 07/18/2016 01/28/2017 Inactive clonazepam 1 mg tablet RxNorm: 919549 1 Tablet(s) PO Q8 as needed 05/31/2016 05/29/2016 Inactive clonazepam 1 mg tablet RxNorm: 215025 1 Tablet(s) PO Q8 as needed 05/31/2016 08/28/2016 Inactive Toujeo SoloStar 300 unit/mL (1.5 mL) subcutaneous insulin pen RxNorm: 4955921 10 Unit(s) SQ daily 05/23/2016 01/28/2017 Inactive Crestor 10 mg tablet RxNorm: 132026 1 Tablet(s) PO QHS 201501/28/2017 Inactive Crestor 10 mg tablet RxNorm: 652957 1 Tablet(s) PO QHS 201505/18/2016 Inactive clonazepam 1 mg tablet RxNorm: 078775 1 Tablet(s) PO Q8 as needed 04/25/2016 05/30/2016 Inactive prednisone 20 mg tablet RxNorm: 537725 3 Tablet(s) PO daily 06/201602/10/2016 Inactive prednisone 20 mg tablet RxNorm: 495417 3 Tablet(s) PO daily 06/201605/14/2016 Inactive Kenalog 40 mg/mL suspension for injection RxNorm: 2858188 Milliliter(s) Inj 01/20/2016 01/20/2016 Inactive aspirin 81 mg tablet,delayed release RxNorm: 748320 1 Tablet(s) PO daily No Start Date Active Brilinta 90 mg tablet RxNorm: 0710702 1 Tablet(s) PO BID No Start Date Active acetaminophen 500 mg tablet RxNorm: 783947 1-2 Tablet(s) PO as needed No Start Date Active clopidogrel 75 mg tablet RxNorm: 467297 1 Tablet(s) PO daily No Start Date 02/28/2017 Inactive Novolog Flexpen U-100 Insulin aspart 100 unit/mL subcutaneous RxNorm: 0042031 5 units with breakfast lunch and 10 supper Unit(s) SQ No Start Date 06/17/2018 Inactive clonazepam 1 mg tablet RxNorm: 333122 1 Tablet(s) PO QHS No Start Date 04/24/2016 Inactive Coreg 6.25 mg tablet RxNorm: 328700 1 Tablet(s) PO BID No Start Date 09/29/2018 Inactive acyclovir 400 mg tablet RxNorm: 703480 2 Tablet(s) PO 5x daily No Start Date 02/28/2017 Inactive Lyrica 50 mg capsule RxNorm: 937197 Capsule(s) PO BID No Start Date 06/09/2018 Inactive Vraylar 3 mg capsule RxNorm: 0710263 1 Capsule(s) PO daily No Start Date 03/12/2018 Inactive valsartan 80 mg tablet RxNorm: 324676 1 Tablet(s) PO daily No Start Date 10/22/2018 Inactive Medication Administered Medication Codes Instructions Start Date Status ketorolac 60 mg/2 mL intramuscular solution RxNorm: 8567961 Milliliter 10/21/2018 No longer Active Kenalog 40 mg/mL suspension for injection RxNorm: 9713019 1.5Milliliter 09/30/2018 No longer Active Kenalog 40 mg/mL suspension for injection RxNorm: 6766471 Milliliter 09/11/2018 No longer Active Kenalog 40 mg/mL suspension for injection RxNorm: 7194119 Milliliter 06/28/2018 No longer Active ketorolac 30 mg/mL injection solution RxNorm: 443156 2Milliliter 05/02/2018 No longer Active ceftriaxone 500 mg solution for injection RxNorm: 8245574 1Milliliter 02/16/2017 No longer Active Kenalog 40 mg/mL suspension for injection RxNorm: 2795399 1Milliliter 02/16/2017 No longer Active ceftriaxone 1 gram solution for injection RxNorm: 7120559 10/06/2016 No longer Active Kenalog 40 mg/mL suspension for injection RxNorm: 5305202 Milliliter 01/20/2016 No longer Active Immunizations Vaccine Codes Date Status Influenza CVX: 141 07/22/2018 completed Influenza CVX: 141 08/16/2017 completed Assessments Condition Codes Effective Dates 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: I25.10 [...] Item Item Code Result Date Culture Sputum 048776 LOWER RESPIRATORY TRACT CULTURE SEE NOTES 11/14/2018 Culture Sputum 886037 LOWER RESPIRATORY TRACT CULTURE SEE NOTES 10/16/2018 LIPID GRP [id number] CHOLESTEROL TNP:Duplicate Order 09/10/2018 LIPID GRP Triglyceride TNP:Duplicate Order 2017 LIPID GRP HDL CHOLESTEROL TNP:Duplicate Order 2017 LIPID GRP Chol/HDL Ratio TNP:Duplicate Order 2017 LIPID GRP LDL Cholesterol TNP:Duplicate Order 2017 A1C HPLC 8557311 Hgb A1c 20077-8 TNP:Duplicate Order 2017 C Diff An [id number] GDH TNP:Lab Request 06/22/2018 C Diff An [id number] Toxin A/B TNP:Lab Request 06/22/2018 C Diff An [id number] C Diff Analyzer TNP:Lab Request 2017 C Diff An [id number] IC OK? TNP:Lab Request 06/22/2018 CBC 1041789 WBC 6.4 10e9/L 05/02/2018 CBC 0370204 RBC 5.60 10e12/L 05/02/2018 CBC 8487933 HEMOGLOBIN 17.0 g/dL 05/02/2018 CBC 7352707 HEMATOCRIT 48.0 % 05/02/2018 CBC 6692612 MCV 85.7 fL 05/02/2018 CBC 7046623 MCH 30.4 pg 05/02/2018 CBC 2006879 MCHC 35.4 g/dL 05/02/2018 CBC 4159016 PLATELET COUNT 166 10e9/L 05/02/2018 CBC 1750069 Mean Plt Volume 11.6 fL 05/02/2018 CBC 2703626 Neut Auto 48.6 % 05/02/2018 CBC 9481695 Lymph Auto 41.7 % 05/02/2018 CBC 5856252 [place] Auto 8.1 % 05/02/2018 CBC 0277998 RDW 13.1 % 05/02/2018 CBC 2908535 Eos Auto 1.1 % 05/02/2018 CBC 2454452 Baso Auto 0.5 % 05/02/2018 CBC 1603524 Neutrophil Abs 3.11 10e9/L 05/02/2018 CBC 8883353 Lymphocyte Abs 2.67 10e9/L 05/02/2018 CBC 9464931 Monocyte Abs 0.52 10e9/L 05/02/2018 CBC 4023040 Eosinophil Abs 0.07 10e9/L 05/02/2018 CBC 6571636 RDW-SD 40.0 fL 05/02/2018 CBC 0780772 Basophil Abs 0.03 10e9/L 05/02/2018 CHEM 14 1821361 AST 17 U/L 05/02/2018 CHEM 14 8034772 ALT 17 U/L 05/02/2018 CHEM 14 4015496 BUN 17 mg/dL 05/02/2018 CHEM 14 1020117 ALBUMIN 4.0 g/dL 05/02/2018 CHEM 14 4992688 CHLORIDE 97 mmol/L 05/02/2018 CHEM 14 9031508 Bili Total 0.9 mg/dL 05/02/2018 CHEM 14 0371501 ALK PHOS 67 U/L 05/02/2018 CHEM 14 2202553 SODIUM 135 mmol/L 05/02/2018 CHEM 14 2588041 CREATININE 1.18 mg/dL 05/02/2018 CHEM 14 8912326 CALCIUM 9.4 mg/dL 05/02/2018 CHEM 14 2783342 POTASSIUM 4.4 mmol/L 05/02/2018 CHEM 14 9269134 TOTAL PROTEIN 6.9 g/dL 05/02/2018 CHEM 14 6859106 GLUCOSE 316 mg/dL 05/02/2018 CHEM 14 7492122 Bicarbonate 29 mmol/L 05/02/2018 CHEM 14 9007124 AGAP 9 mmol/L 05/02/2018 MEAN GLUC 1474711 Calc Mean Gluc 283 mg/dL 05/02/2018 A1C HPLC 8668262 Hgb A1c 98786-1 11.5 % 05/02/2018 GFR CALC 3583400 GFR Non Afr Amr >60 mL/min 05/02/2018 GFR CALC 4269718 GFR Afr Amr >60 mL/min 05/02/2018 JI Gold 4710621 JIC Gold Complete 02/28/2018 GFR CALC 3033483 GFR Non Afr Amr >60 mL/min 02/28/2018 GFR CALC 7271960 GFR Afr Amr >60 mL/min 02/28/2018 UA W/CII 8535728 UA Urine Appear Normal 02/28/2018 UA W/CII 6205242 UA Protein 1+ 02/28/2018 UA W/CII 4484419 UA Hemoglobin Negative 02/28/2018 UA W/CII 9881524 UA Glucose 4+ 02/28/2018 UA W/CII 4809142 UA Ketones Trace 02/28/2018 UA W/CII 6431354 UA pH 5.5 02/28/2018 UA W/CII 5775070 U Spec [place] 1.015 02/28/2018 UA W/CII 9503561 UA Bilirubin Negative 02/28/2018 UA W/CII 1061534 UA Nitrite NEG 02/28/2018 UA W/CII 3447590 UA Leuk Esteras Negative 02/28/2018 MICR 4130305 UA WBC/hpf 1 02/28/2018 MICR 1262727 UA RBC hpf 2 02/28/2018 MICR 8839976 UA WBC auto 3.8 /uL 02/28/2018 MICR 8582200 UA RBC auto 12.2 /uL 02/28/2018 MICR 1075766 UA SQ EPI auto 2.3 /uL 02/28/2018 MICR 0955085 UA H Cast auto 0.10 /uL 02/28/2018 CBC 7009607 WBC 6.4 10e9/L 02/28/2018 CBC 9202890 RBC 5.51 10e12/L 02/28/2018 CBC 8173743 HEMOGLOBIN 16.7 g/dL 02/28/2018 CBC 9116644 HEMATOCRIT 46.9 % 02/28/2018 CBC 8568484 MCV 85.1 fL 02/28/2018 CBC 7457317 MCH 30.3 pg 02/28/2018 CBC 2701188 MCHC 35.6 g/dL 02/28/2018 CBC 6859101 PLATELET COUNT 173 10e9/L 02/28/2018 CBC 8737876 Mean Plt Volume 11.6 fL 02/28/2018 CBC 8257597 Neut Auto 51.8 % 02/28/2018 CBC 5527221 Lymph Auto 39.9 % 02/28/2018 CBC 8737923 [place] Auto 7.3 % 02/28/2018 CBC 1333486 RDW 13.3 % 02/28/2018 CBC 8084411 Eos Auto 0.8 % 02/28/2018 CBC 2543765 Baso Auto 0.2 % 02/28/2018 CBC 5326046 Neutrophil Abs 3.32 10e9/L 02/28/2018 CBC 6473578 Lymphocyte Abs 2.55 10e9/L 02/28/2018 CBC 3421221 Monocyte Abs 0.47 10e9/L 02/28/2018 CBC 8429597 Eosinophil Abs 0.05 10e9/L 02/28/2018 CBC 6022226 RDW-SD 40.8 fL 02/28/2018 CBC 2411367 Basophil Abs 0.01 10e9/L 02/28/2018 CHEM 14 3849074 AST 17 U/L 02/28/2018 CHEM 14 4994522 ALT 17 U/L 02/28/2018 CHEM 14 9041260 BUN 20 mg/dL 02/28/2018 CHEM 14 1292603 ALBUMIN 4.1 g/dL 02/28/2018 CHEM 14 3760698 CHLORIDE 97 mmol/L 02/28/2018 CHEM 14 0415516 Bili Total 1.3 mg/dL 02/28/2018 CHEM 14 0394192 ALK PHOS 78 U/L 02/28/2018 CHEM 14 0074237 SODIUM 135 mmol/L 02/28/2018 CHEM 14 7506060 CREATININE 1.09 mg/dL 02/28/2018 CHEM 14 9962588 CALCIUM 9.6 mg/dL 02/28/2018 CHEM 14 5887549 POTASSIUM 3.8 mmol/L 02/28/2018 CHEM 14 9103275 TOTAL PROTEIN 7.3 g/dL 02/28/2018 CHEM 14 6557470 GLUCOSE 349 mg/dL 02/28/2018 CHEM 14 5757450 Bicarbonate 29 mmol/L 02/28/2018 CHEM 14 4390147 AGAP 9 mmol/L 02/28/2018 [place] Spotted Fever Igg/Igm 352384 FEI MT SPOTTED FEVER IGM EIA . 09/05/2017 [place] Spotted Fever Igg/Igm 991110 RMSF, IGM 0.17 index 09/05/2017 [place] Spotted Fever Igg/Igm 591342 FEI MT SPOTTED FEVER IGG EIA FLEX . 09/05/2017 [place] Spotted Fever Igg/Igm 372995 RMSF, IGG SCREEN-FLEX Positive 09/05/2017 Fei Mtn Spot'D Fev Igg 584384 RMSF, IGG -TITER IFA <1:64 11/2016 Ehrlichia Chaffeensis Antibody Igm 228762 EHRLICHIA CHAFFEENSIS IGM < 1:16 09/03/2017 Ehrlichia [place]ensis Antibody Igg 234121 EHRLICHIA CHAFFEENSIS IGG <1:64 09/03/2017 Lymes Disease Total Antibodies With Western Blot Reflex B. BURGDORFERI, IGG/IGM 0.223 08/30/2017 Lymes Disease Total Antibodies With Western Blot Reflex C-Reactive Protein Qnt Crqnt CRP 0.00 mg/dl 08/27/2017 Sed Rate Ord21 ESR 8 mm/hr 08/27/2017 Comp Metabolic Ijf747 NA 135 mEq/L 08/16/2017 Comp Metabolic Vlf696 K 4.1 mEq/L 08/16/2017 Comp Metabolic Oaq722 CL 98 mEq/L 08/16/2017 Comp Metabolic Nzd841 CO2 28.0 mEq/L 08/16/2017 Comp Metabolic Rpa123 ANION GAP 13 08/16/2017 Comp Metabolic Imq937 GLUCOSE 299 mg/dL 08/16/2017 Comp Metabolic Wpn573 Creat 0.9 mg/dL 08/16/2017 Comp Metabolic Ajy679 eGFR 90 ml/min/1.73m2 08/16/2017 Comp Metabolic Lxj977 BUN 20 mg/dL 08/16/2017 Comp Metabolic Unw127 B/C Ratio 21.5 Ratio 08/16/2017 Comp Metabolic Xlr770 CALCIUM 9.2 mg/dL 08/16/2017 Comp Metabolic Zbd017 ALK PHOS 84 U/L 08/16/2017 Comp Metabolic Snu647 AST(SGOT) 19 U/L 08/16/2017 Comp Metabolic Ykz417 ALT(SGPT) 24 U/L 08/16/2017 Comp Metabolic Ncg243 BILI T 1.1 mg/dL 08/16/2017 Comp Metabolic Kva219 ALBUMIN 4.2 g/dL 08/16/2017 Comp Metabolic Dqv507 TPRO 7.2 g/dL 08/16/2017 Comp Metabolic Bmi120 GLOB 3.0 g/dL 08/16/2017 Comp Metabolic Pzi071 A/G Ratio 1.4 Ratio 08/16/2017 Comp Metabolic Lym526 Osmo 284 mOsmo 08/16/2017 %Hba1C Cck234 % HbA1c 77157-8 12.5 % 08/16/2017 %Hba1C Mqk296 Gluc Ave 312 mg/dL 08/16/2017 Urine Culture Ucult Preliminary NO Growth Day 1 06/23/2017 Urine Culture Ucult Complete NO Growth Day 2 06/23/2017 C RAP A SC [id number] Strep A Negative 06/08/2017 %Hba1C Mah777 % HbA1c 11055-3 9.5 % 05/04/2017 %Hba1C Ote047 Gluc Ave 226 mg/dL 05/04/2017 Tsh Ord6 [...] 31.7 pg 05/04/2017 Cbc With Differential Ord2 [place]% 8.5 % 05/04/2017 Cbc With Differential Ord2 [...] 2.48 K/ul 05/04/2017 Cbc With Differential Ord2 [place] ABS# 0.5 K/ul 05/04/2017 Cbc With Differential Ord2 Eos ABS# 0.1 K/ul 05/04/2017 Cbc With Differential Ord2 Baso ABS# 0.0 K/ul 05/04/2017 Comp Metabolic Qja488 NA 135 mEq/L 05/04/2017 Comp Metabolic Jct543 K 4.2 mEq/L 05/04/2017 Comp Metabolic Rnc206 CL 99 mEq/L 05/04/2017 Comp Metabolic Ljc910 CO2 26.0 mEq/L 05/04/2017 Comp Metabolic Tiv380 ANION GAP 14 05/04/2017 Comp Metabolic Est220 GLUCOSE 277 mg/dL 05/04/2017 Comp Metabolic Taj312 Creat 0.9 mg/dL 05/04/2017 Comp Metabolic Lfc346 eGFR 96 ml/min/1.73m2 05/04/2017 Comp Metabolic Iow197 BUN 23 mg/dL 05/04/2017 Comp Metabolic Ixg608 B/C Ratio 26.1 Ratio 05/04/2017 Comp Metabolic Wxp617 CALCIUM 8.9 mg/dL 05/04/2017 Comp Metabolic Als976 ALK PHOS 81 U/L 05/04/2017 Comp Metabolic Ais426 AST(SGOT) 21 U/L 05/04/2017 Comp Metabolic Buq415 ALT(SGPT) 27 U/L 05/04/2017 Comp Metabolic Kag726 BILI T 1.2 mg/dL 05/04/2017 Comp Metabolic Puw572 ALBUMIN 4.0 g/dL 05/04/2017 Comp Metabolic Hzc849 TPRO 6.7 g/dL 05/04/2017 Comp Metabolic Sih152 GLOB 2.7 g/dL 05/04/2017 Comp Metabolic Tur687 A/G Ratio 1.5 Ratio 05/04/2017 Comp Metabolic Dfl282 Osmo 284 mOsmo 05/04/2017 C A/B FLU [id number] Influenza A Scr Negative 02/16/2017 C A/B FLU [id number] Influenza B Scr Positive 02/16/2017 Cbc With [...] 30.3 pg 05/23/2016 Cbc With Differential Ord2 [place]% 8.8 % 05/23/2016 Cbc With Differential Ord2 [...] 2.07 K/ul 05/23/2016 Cbc With Differential Ord2 [place] ABS# 0.5 K/ul 05/23/2016 Cbc With Differential Ord2 Eos ABS# 0.1 K/ul 05/23/2016 Cbc With Differential Ord2 Baso ABS# 0.0 K/ul 05/23/2016 Lipid Ord30 CHOL 397 mg/dL 05/17/2016 Lipid Ord30 HDL 48.0 mg/dl 05/17/2016 Lipid Ord30 TRIG 578 mg/dL 05/17/2016 Lipid Ord30 LDL Unable to calculate Due to elevated triglycerides mg/dL 05/17/2016 Lipid Ord30 C/HDL 8.3 Ratio 05/17/2016 %Hba1C Mpj356 % HbA1c 98674-9 12.4 % 05/16/2016 %Hba1C Evl851 Gluc Ave 309 mg/dL 05/16/2016 Cbc With [...] 30.4 pg 05/15/2016 Cbc With Differential Ord2 [place]% 7.8 % 05/15/2016 Cbc With Differential Ord2 [...] 2.04 K/ul 05/15/2016 Cbc With Differential Ord2 [place] ABS# 0.5 K/ul 05/15/2016 Cbc With Differential Ord2 Eos ABS# 0.1 K/ul 05/15/2016 Cbc With Differential Ord2 Baso ABS# 0.0 K/ul 05/15/2016 Tsh Ord6 hTSH II 1.70 uIU/mL 05/15/2016 Comp Metabolic Lte476 NA 135 mEq/L 05/15/2016 Comp Metabolic Yye393 K 3.9 mEq/L 05/15/2016 Comp Metabolic Bba532 CL 96 mEq/L 05/15/2016 Comp Metabolic Klw852 CO2 27.0 mEq/L 05/15/2016 Comp Metabolic Ozf745 ANION GAP 16 05/15/2016 Comp Metabolic Euk310 GLUCOSE 183 mg/dL 05/15/2016 Comp Metabolic Ygs108 Creat 1.1 mg/dL 05/15/2016 Comp Metabolic Jar399 eGFR 71 ml/min/1.73m2 05/15/2016 Comp Metabolic Mhu352 BUN 17 mg/dL 05/15/2016 Comp Metabolic Fbu952 B/C Ratio 14.9 Ratio 05/15/2016 Comp Metabolic Mvd118 CALCIUM 9.6 mg/dL 05/15/2016 Comp Metabolic Ncn949 ALK PHOS 100 U/L 05/15/2016 Comp Metabolic Cbl171 AST(SGOT) 20 U/L 05/15/2016 Comp Metabolic Agz784 ALT(SGPT) 20 U/L 05/15/2016 Comp Metabolic Xcv490 BILI T 1.3 mg/dL 05/15/2016 Comp Metabolic Tac710 ALBUMIN 4.6 g/dL 05/15/2016 Comp Metabolic Sey604 TPRO 8.1 g/dL 05/15/2016 Comp Metabolic Snj665 GLOB 3.5 g/dL 05/15/2016 Comp Metabolic Qjt730 A/G Ratio 1.3 Ratio 05/15/2016 Comp Metabolic Fcb621 Osmo 276 mOsmo 05/15/2016 Review of Systems [...] 1995 Constitutional general appearance Overall: well developed 01/13/2019 [...] CPT-4: J3301 09/30/2018 THER/PROPH/DIAG INJ SC/IM CPT-4: 38762 09/11/2018 TRIAMCINOLONE ACET INJ NOS CPT-4: J3301 09/11/2018 IMMUNIZATION ADMIN CPT -4: 47303 07/22/2018 FLU VAC NO PRSV 4 MENA 3 YRS+ CPT-4: 65360 07/22/2018 TRIAMCINOLONE ACET INJ NOS CPT-4: J3301 06/28/2018 KETOROLAC TROMETHAMINE INJ CPT-4: J1885 05/02/2018 FLU VAC NO PRSV 4 MENA 3 YRS+ CPT-4: 18028 08/16/2017 IMMUNIZATION ADMIN CPT -4: 94474 08/16/2017 URINALYSIS NONAUTO W/O SCOPE CPT-4: 92419 06/21/2017 TRIAMCINOLONE ACET INJ NOS CPT-4: J3301 05/04/2017 THER/PROPH/DIAG INJ SC/IM CPT-4: 89623 05/04/2017 TRIAMCINOLONE ACET INJ NOS CPT-4: J3301 02/16/2017 ROCEPHIN, PER 250 MG CPT-4: J0696 02/16/2017 ROCEPHIN, PER 250 MG CPT-4: J0696 10/06/2016 URINALYSIS NONAUTO W/O SCOPE CPT-4: 73871 07/18/2016 TRIAMCINOLONE ACET INJ NOS CPT-4: J3301 01/20/2016 Vital Signs Date Vital 01/13/2019 Blood Pressure 1: 120/70 Code : 8480-6 BMI: 34.2 Code : 45432-7 Heart Rate 1 : 74 bpm Height: 6'2" SpO2: 96% Weight: 266 lbs 12/31/2018 Blood Pressure 1: 122/70 Code : 8480-6 BMI: 34.4 Code : 22708-3 Heart Rate 1 : 90 bpm Height: 6'2" SpO2: 97% Temperature: 36.6 (C) / 97.8 (F) Weight: 268 lbs 12/26/2018 Blood Pressure 1: 118/72 Code : 8480-6 BMI: 34.4 Code : 38007-4 Heart Rate 1 : 82 bpm Height: 6'2" SpO2: 98% Temperature: 36.6 (C) / 97.9 (F) Weight: 268 lbs 11/18/2018 Blood Pressure 1: 120/84 Code : 8480-6 BMI: 33.9 Code : 90855-5 Heart Rate 1 : 77 bpm Height: 6'2" SpO2: 99% Temperature: 36.7 (C) / 98.1 (F) Weight: 264 lbs 11/12/2018 Blood Pressure 1: 138/76 Code : 8480-6 BMI: 33.9 Code : 84386-9 Heart Rate 1 : 91 bpm Height: 6'2" SpO2: 99% Weight: 264 lbs 10/30/2018 Blood Pressure 1: 130/72 Code : 8480-6 BMI: 33.3 Code : 10189-5 Heart Rate 1 : 83 bpm Height: 6'2" SpO2: 95% Temperature: 36.5 (C) / 97.7 (F) Weight: 259 lbs 10/24/2018 Blood Pressure 1: 130/70 Code : 8480-6 Heart Rate 1: 95 bpm Height: 6'2" SpO2: 96% 10/23/2018 Blood Pressure 1: 100/70 Code : 8480-6 Blood Pressure 2: 102/70 Code: 8480-6 BMI: 33.3 Code: 56370-3 Heart Rate 1: 106 bpm Height: 6'2" SpO2: 98% Weight: 259 lbs 10/21/2018 Blood Pressure 1: 140/90 Code : 8480-6 BMI: 32.9 Code : 85772-5 Heart Rate 1 : 96 bpm Height: 6'2" SpO2: 92% Weight: 256 lbs 10/17/2018 Blood Pressure 1: 110/68 Code : 8480-6 BMI: 32.9 Code : 81828-0 Heart Rate 1 : 82 bpm Height: 6'2" SpO2: 97% Weight: 256 lbs 10/14/2018 Blood Pressure 1: 124/70 Code : 8480-6 BMI: 33.6 Code : 45115-5 Heart Rate 1 : 76 bpm Height: 6'2" SpO2: 99% Temperature: 36.3 (C) / 97.3 (F) Weight: 262 lbs 09/30/2018 Blood Pressure 1: 138/82 Code : 8480-6 BMI: 33.6 Code : 92174-5 Heart Rate 1 : 82 bpm Height: 6'2" SpO2: 98% Temperature: 36.3 (C) / 97.3 (F) Weight: 262 lbs 09/09/2018 Blood Pressure 1: 140/80 Code : 8480-6 BMI: 33.0 Code : 27078-2 Heart Rate 1 : 97 bpm Height: 6'2" SpO2: 93% Temperature: 36.8 (C) / 98.2 (F) Weight: 257 lbs 07/22/2018 Blood Pressure 1: 120/78 Code : 8480-6 BMI: 31.6 Code : 84753-7 Heart Rate 1 : 87 bpm Height: 6'2" SpO2: 98% Weight: 246 lbs 07/16/2018 Blood Pressure 1: 132/74 Code : 8480-6 BMI: 31.2 Code : 42226-1 Heart Rate 1 : 90 bpm Height: 6'2" SpO2: 96% Weight: 243 lbs 07/01/2018 Blood Pressure 1: 142/82 Code : 8480-6 BMI: 31.8 Code : 50942-5 Heart Rate 1 : 88 bpm Height: 6'2" SpO2: 98% Weight: 248 lbs 06/28/2018 Blood Pressure 1: 132/76 Code : 8480-6 BMI: 31.8 Code : 67558-8 Heart Rate 1 : 107 bpm Height: 6'2" SpO2: 98% Temperature: 37.9 (C) / 100.3 (F) Weight: 248 lbs 06/18/2018 Blood Pressure 1: 138/82 Code : 8480-6 BMI: 31.8 Code : 83529-4 Heart Rate 1 : 82 bpm Height: 6'2" SpO2: 97% Weight: 248 lbs 06/04/2018 Blood Pressure 1: 128/84 Code : 8480-6 BMI: 33.9 Code : 75983-3 Heart Rate 1 : 86 bpm Height: 6'2" SpO2: 95% Weight: 264 lbs 05/13/2018 Blood Pressure 1: 130/80 Code : 8480-6 BMI: 31.1 Code : 71279-6 Heart Rate 1 : 100 bpm Height: 6'2" SpO2: 94% Weight: 242 lbs 05/02/2018 Blood Pressure 1: 134/84 Code : 8480-6 BMI: 31.2 Code : 25813-0 Heart Rate 1 : 93 bpm Height: 6'2" SpO2: 98% Weight: 243 lbs 04/29/2018 Blood Pressure 1: 142/88 Code : 8480-6 BMI: 31.6 Code : 91093-8 Heart Rate 1 : 96 bpm Height: 6'2" SpO2: 96% Temperature: 36.7 (C) / 98.1 (F) Weight: 246 lbs 03/13/2018 Blood Pressure 1: 120/76 Code : 8480-6 BMI: 30.9 Code : 94361-0 Heart Rate 1 : 112 bpm Height: 6'2" SpO2: 97% Weight: 241 lbs 03/07/2018 Blood Pressure 1: 108/78 Code : 8480-6 BMI: 30.0 Code : 57450-3 Heart Rate 1 : 87 bpm Height: 6'2" SpO2: 98% Weight: 234 lbs 02/28/2018 Blood Pressure 1: 106/74 Code : 8480-6 BMI: 30.0 Code : 05764-3 Heart Rate 1 : 101 bpm Height: 6'2" SpO2: 98% Temperature: 36.4 (C) / 97.5 (F) Weight: 234 lbs 02/13/2018 Blood Pressure 1: 110/78 Code : 8480-6 BMI: 30.0 Code : 79784-8 Heart Rate 1 : 106 bpm Height: 6'2" SpO2: 98% Weight: 234 lbs 01/29/2018 Blood Pressure 1: 106/68 Code : 8480-6 BMI: 30.0 Code : 76926-3 Heart Rate 1 : 108 bpm Height: 6'2" SpO2: 98% Weight: 234 lbs 08/27/2017 Blood Pressure 1: 134/76 Code : 8480-6 Heart Rate 1: 98 bpm Height: SpO2: 97% Weight: 08/16/2017 Blood Pressure 1: 128/80 Code : 8480-6 BMI: 32.0 Code : 63235-8 Heart Rate 1 : 94 bpm Height: [...] Code : 8480-6 BMI: 31.8 Code : 24558-3 Heart Rate 1 : 102 bpm Height: [...] Code : 8480-6 BMI: 31.8 Code : 76378-9 Heart Rate 1 : 85 bpm Height: 6'2" SpO2: 96% Temperature: 36.6 (C) / 97.9 (F) Weight: 248 lbs 02/12/2017 Blood Pressure 1: 126/76 Code : 8480-6 BMI: 31.8 Code : 14709-5 Heart Rate 1 : 106 bpm Height: 6'2" SpO2: 91% Weight: 248 lbs 02/05/2017 Blood Pressure 1: 146/86 Code : 8480-6 BMI: 31.9 Code : 55840-3 Heart Rate 1 : 98 bpm Height: 6'2" SpO2: 87% Temperature: 36.7 (C) / 98.0 (F) Weight: 248 lbs 8 oz 01/29/2017 Blood Pressure 1: 132/84 Code : 8480-6 BMI: 31.8 Code : 91135-4 Heart Rate 1 : 83 bpm Height: 6'2" SpO2: 97% Weight: 248 lbs 10/13/2016 Blood Pressure 1: 128/72 Code : 8480-6 Heart Rate 1: 86 bpm SpO2: 94% 10/09/2016 Blood Pressure 1: 128/68 Code : 8480-6 Heart Rate 1: 136 bpm SpO2: 94% Temperature: 36.8 (C) / 98.2 (F) 10/06/2016 Blood Pressure 1: 140/80 Code : 8480-6 BMI: 32.1 Code : 22631-4 Heart Rate 1 : 94 bpm Height: 6'2" SpO2: 95% Weight: 250 lbs 07/18/2016 Blood Pressure 1: 128/86 Code : 8480-6 BMI: 32.1 Code : 66579-6 Heart Rate 1 : 89 bpm Height: 6'2" SpO2: 96% Weight: 250 lbs 06/22/2016 Blood Pressure 1: 118/70 Code : 8480-6 BMI: 32.1 Code : 61767-4 Heart Rate 1 : 70 bpm Height: 6'2" SpO2: 97% Weight: 250 lbs 05/23/2016 Blood Pressure 1: 128/80 Code : 8480-6 BMI: 32.1 Code : 07902-5 Heart Rate 1 : 76 bpm Height: 6'2" SpO2: 98% Weight: 250 lbs 05/15/2016 Blood Pressure 1: 110/90 Code : 8480-6 BMI: 31.3 Code : 99918-0 Heart Rate 1 : 111 bpm Height: 6'2" SpO2: 97% Temperature: 36.6 (C) / 97.8 (F) Weight: 244 lbs 01/20/2016 Blood Pressure 1: 128/76 Code : 8480-6 BMI: 33.0 Code : 60149-2 Heart Rate 1 : 103 bpm Height: [...] Encounters Encounter Performer Location Codes Date () 68009 EST. 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 PATIENT, LEVEL IV Diagnosis: Type 2 diabetes mellitus with hyperglycemia[ICD10: E11.65] Diagnosis: Epigastric pain[ICD10: R10.13] Diagnosis: Pain in joints of right hand[ICD10: M25.541] Diagnosis: Shortness of breath[ICD10: R06.02] Marcela Ha MD, [facility] CPT-4: 38488 12/31/2018 04053 EST. PATIENT, LEVEL III Diagnosis: Other chest pain[ICD10: R07.89] Diagnosis: Cough[ICD10: R05] Madeline Ha MD, [facility] CPT-4: 45108 12/26/2018 ([id number]) 87696 EST. PATIENT, LEVEL III Diagnosis: Cough[ICD10: R05] Melida Ha MD, [facility] CPT-4: 27695 11/18/2018 ([id number]) 23826 EST. PATIENT, LEVEL III Diagnosis: Cough[ICD10: R05] Diagnosis: Pneumonia due to other Gram-negative bacteria[ICD10: J15.6] Marcela Ha MD, [facility] CPT-4: 07151 11/12/2018 ([id number]) 46292 EST. PATIENT, LEVEL III Diagnosis: Pneumonia due to other Gram-negative bacteria[ICD10: J15.6] Diagnosis: Cough[ICD10: R05] Melida Ha MD, [facility] CPT-4: 11357 10/30/2018 ([id number]) 11662 EST. PATIENT, LEVEL II Diagnosis: Pain in joints of right hand[ICD10: M25.541] Diagnosis: Trigger finger, right middle finger[ICD10: M65.331] Marcela Ha MD, [facility] CPT-4: 67170 10/24/2018 ([id number]) 02689 EST. PATIENT, LEVEL IV Diagnosis: Essential (primary) hypertension[ICD10: I10] Diagnosis: Type 2 diabetes mellitus with foot ulcer[ICD10: E11.621] Melida Ha MD, [facility] CPT-4: 91353 10/23/2018 ([id number]) 72525 EST. PATIENT, LEVEL III Diagnosis: Cellulitis of right finger[ICD10: L03.011] Diagnosis: Type 2 diabetes mellitus with foot ulcer[ICD10: E11.621] Diagnosis: Pain in right hand[ICD10: M79.641] Melida Ha MD, [facility] CPT-4: 66109 10/21/2018 16994 EST. PATIENT, LEVEL III Diagnosis: Spontaneous ecchymoses[ICD10: R23.3] Diagnosis: Cellulitis of right lower limb[ICD10: L03.115] Diagnosis: Cellulitis of left lower limb[ICD10: L03.116] Madeline Ha MD, [facility] CPT-4: 87131 10/17/2018 ([id number]) 70631 EST. PATIENT, LEVEL III Diagnosis: Cough[ICD10: R05] Diagnosis: Acute bronchitis, unspecified[ICD10: J20.9] Melida Ha MD, [facility] CPT-4: 73924 10/14/2018 53623 EST. PATIENT, LEVEL III Diagnosis: Acute laryngopharyngitis[ICD10: J06.0] Diagnosis: Cough[ICD10: R05] Madeline Ha MD, [facility] CPT-4: 25882 09/30/2018 ([id number]) 60558 EST. PATIENT, LEVEL III Diagnosis: Acute recurrent maxillary sinusitis[ICD10: J01.01] Diagnosis: Cough[ICD10: R05] Diagnosis: Type 2 diabetes mellitus with hyperglycemia[ICD10: E11.65] Marcela Ha MD, [facility] CPT-4: 37403 09/09/2018 ([id number]) 43248 EST. PATIENT, LEVEL IV Diagnosis: Essential (primary) hypertension[ICD10: I10] Diagnosis: Mixed hyperlipidemia[ICD10: E78.2] Diagnosis: Bipolar disorder, current episode depressed, moderate[ICD10: F31.32] Diagnosis: Type 2 diabetes mellitus with other specified complication[ICD10: E11.69] Melida Ha MD, [facility] CPT-4: 60587 2017 ([id number]) 38340 EST. PATIENT, LEVEL III Diagnosis: Insomnia due to medical condition[ICD10: G47.01] Marcela Ha MD, [facility] CPT-4: 71457 07/16/2018 ([id number]) Miscellaneous no charge Diagnosis: Cough[ICD10: R05] Madeline Ha MD, [facility] CPT-4: 30064 07/01/2018 55367 EST. PATIENT, LEVEL III Diagnosis: Cough[ICD10: R05] Diagnosis: Acute laryngopharyngitis[ICD10: J06.0] Diagnosis: Other allergic rhinitis[ICD10: J30.89] Madeline Ha MD, [facility] CPT-4: 18379 06/28/2018 ([id number]) 76684 EST. PATIENT, LEVEL IV Diagnosis: Type 2 diabetes mellitus with hyperglycemia[ICD10: E11.65] Diagnosis: Essential (primary) hypertension[ICD10: I10] Melida Ha MD, [facility] CPT-4: 78228 06/18/2018 ([id number]) 49537 EST. PATIENT, LEVEL IV Diagnosis: Type 2 diabetes mellitus with hyperglycemia[ICD10: E11.65] Diagnosis: Essential (primary) hypertension[ICD10: I10] Diagnosis: Localized edema[ICD10: R60.0] Melida Ha MD, [facility] CPT- 4: 85917 06/04/2018 ([id number]) 94009 EST. PATIENT, LEVEL III Diagnosis: Type 2 diabetes mellitus with hyperglycemia[ICD10: E11.65] Diagnosis: Myalgia[ICD10: M79.1] Diagnosis: Pain in right hip[ICD10: M25.551] Diagnosis: Pain in left hip[ICD10: M25.552] Marcela Ha MD, [facility] CPT-4: 57934 05/13/2018 ([id number]) 50450 EST. PATIENT, LEVEL III Diagnosis: Myalgia[ICD10: M79.1] Diagnosis: Pain in right hip[ICD10: M25.551] Diagnosis: Pain in left hip[ICD10: M25.552] Marcela Ha MD, [facility] CPT-4: 46070 05/02/2018 ([id number]) 67588 EST. PATIENT, LEVEL IV Diagnosis: Essential (primary) hypertension[ICD10: I10] Diagnosis: Type 2 diabetes mellitus with hyperglycemia[ICD10: E11.65] Diagnosis: Major depressive disorder, single episode, moderate[ICD10: F32.1] Diagnosis: Myalgia[ICD10: M79.1] Marcela Ha MD, [facility] CPT-4: 34692 04/29/2018 ([id number]) 40126 EST. PATIENT, LEVEL IV Diagnosis: Type 2 diabetes mellitus with hyperglycemia[ICD10: E11.65] Diagnosis: Essential (primary) hypertension[ICD10: I10] Diagnosis: Major depressive disorder, single episode, moderate[ICD10: F32.1] Melida Ha MD, [facility] CPT-4: 67895 03/13/2018 ([id number]) 84311 EST. PATIENT, LEVEL III Diagnosis: Type 2 diabetes mellitus with hyperglycemia[ICD10: E11.65] Diagnosis: Bipolar disorder, current episode depressed, moderate[ICD10: F31.32] Diagnosis: Orthostatic hypotension[ICD10: I95.1] Marcela Ha MD, [facility] CPT-4: 15698 03/07/2018 ([id number]) 85284 EST. PATIENT, LEVEL IV Diagnosis: Type 2 diabetes mellitus with hyperglycemia[ICD10: E11.65] Diagnosis: Major depressive disorder, single episode, moderate[ICD10: F32.1] Diagnosis: Orthostatic hypotension[ICD10: I95.1] Diagnosis: Other fatigue[ICD10: R53.83] Marcela Ha MD, [facility] CPT-4: 57794 02/28/2018 64107 EST. PATIENT, LEVEL IV Diagnosis: Other fatigue[ICD10: R53.83] Diagnosis: Other malaise[ICD10: R53.81] Diagnosis: Gastro-esophageal reflux disease without esophagitis[ICD10: K21.9] Madeline Ha MD, [facility] CPT-4: 70951 02/13/2018 ([id number]) 77104 EST. PATIENT, LEVEL IV Diagnosis: Type 2 diabetes mellitus with foot ulcer[ICD10: E11.621] Diagnosis: Essential (primary) hypertension[ICD10: I10] Diagnosis: Gastro-esophageal reflux disease without esophagitis[ICD10: K21.9] Marcela Ha MD, [facility] CPT-4: 40042 01/29/2018 72229 EST. PATIENT, LEVEL III Diagnosis: Other malaise[ICD10: R53.81] Diagnosis: Other fatigue[ICD10: R53.83] Diagnosis: Pain in right shoulder[ICD10: M25.511] Diagnosis: Pain in left shoulder[ICD10: M25.512] Madeline Ha MD, [facility] CPT-4: 75235 08/27/2017 ([id number]) 37827 EST. PATIENT, LEVEL IV Diagnosis: Essential (primary) hypertension[ICD10: I10] Diagnosis: Type 2 diabetes mellitus with hyperglycemia[ICD10: E11.65] Diagnosis: VACCIN FOR INFLUENZA[ICD10: Z23] Melida Ha MD, [facility] CPT-4: 24570 08/16/2017 40391 EST. PATIENT, LEVEL III Diagnosis: [place] without complications[ICD10: B02.9] Madeline Ha MD, [facility] CPT-4: 11597 07/26/2017 ([id number]) 70722 EST. PATIENT, LEVEL III Diagnosis: Cellulitis of right lower limb[ICD10: L03.115] Marcela Ha MD, [facility] CPT-4: 39575 07/03/2017 37149 EST. PATIENT, LEVEL II Diagnosis: Laceration without foreign body of left forearm, initial encounter[ ICD10: S51.812A] Marcela Ha MD, [facility] CPT-4: 54706 06/29/2017 ([id number]) 72002 EST. PATIENT, LEVEL III Diagnosis: Cellulitis of right lower limb[ICD10: L03.115] Diagnosis: Type 2 diabetes mellitus with foot ulcer[ICD10: E11.621] Marcela Ha MD [facility] CPT-4: 43458 06/18/2017 ([id number]) 51222 EST. PATIENT, LEVEL IV Diagnosis: Cellulitis of right lower limb[ICD10: L03.115] Diagnosis: Acute laryngopharyngitis[ICD10: J06.0] Diagnosis: Gastro-esophageal reflux disease without esophagitis[ICD10: K21.9] Marcela Ha MD [facility] CPT-4: 11228 06/07/2017 ([id number]) 79125 EST. PATIENT, LEVEL III Diagnosis: Type 2 diabetes mellitus with hyperglycemia[ICD10: E11.65] Diagnosis: Insect bite (nonvenomous) of abdominal wall, initial encounter[ICD10 : S30.861A] Marcela Ha MD [facility] CPT-4: 54830 05/17/2017 ([id number]) 27850 EST. PATIENT, LEVEL III Diagnosis: Allergic contact dermatitis due to plants, except food[ICD10: L23.7] Melida Ha MD [facility] CPT-4: 64919 05/04/2017 ([id number]) 74816 EST. PATIENT, LEVEL III Diagnosis: Essential (primary) hypertension[ICD10: I10] Marcela Ha MD [facility] CPT-4: 12738 03/15/2017 ([id number]) 02947 EST. PATIENT, LEVEL III Diagnosis: Cough[ICD10: R05] Diagnosis: Essential (primary) hypertension[ICD10: I10] Marcela Ha MD [facility] CPT-4: 82346 03/01/2017 ([id number]) 18559 EST. PATIENT, LEVEL III Diagnosis: Cough[ICD10: R05] Diagnosis: Nasal congestion[ICD10: R09.81] Diagnosis: Acute recurrent maxillary sinusitis[ICD10: J01.01] Marcela Ha MD [facility] CPT-4: 79837 02/16/2017 ([id number]) 66544 EST. PATIENT, LEVEL III Diagnosis: Type 2 diabetes mellitus with hyperglycemia[ICD10: E11.65] Marcela Ha MD [facility] CPT-4: 45512 02/12/2017 ([id number]) 88372 EST. PATIENT, LEVEL IV Diagnosis: Type 2 diabetes mellitus with hyperglycemia[ICD10: E11.65] Diagnosis: Muscle weakness (generalized)[ICD10: M62.81] Diagnosis: Disorientation, unspecified[ICD10: R41.0] Marcela Ha MD, [facility] CPT-4: 92833 02/05/2017 ([id number]) Patient admitted to the hospital from clinic (NO CHARGE) Diagnosis: Type 2 diabetes mellitus with hyperglycemia[ICD10: E11.65] Diagnosis: Disorientation, unspecified[ICD10: R41.0] Diagnosis: Muscle weakness (generalized)[ICD10: M62.81] Marcela Ha MD, [facility] CPT-4: 00360A 01/29/2017 ([id number]) Miscellaneous no charge Diagnosis: Cellulitis of right lower limb[ICD10: L03.115] Marcela Ha MD, [facility] CPT-4: 73907 10/13/2016 ([id number]) Miscellaneous no charge Diagnosis: Type 2 diabetes mellitus with foot ulcer[ICD10: E11.621] Diagnosis: Pain in right foot[ICD10: M79.671] Marcela Ha MD, [facility] CPT-4: 34678 10/09/2016 99640 EST. PATIENT, LEVEL II Diagnosis: Cellulitis of right lower limb[ICD10: L03.115] Marcela Ha MD, [facility] CPT-4: 02121 10/06/2016 ([id number]) 26948 EST. PATIENT, LEVEL IV Diagnosis: Low back pain[ICD10: M54.5] Diagnosis: Other deformities of toe(s) (acquired), left foot[ICD10: M20.5X2] Diagnosis: Type 2 diabetes mellitus with foot ulcer[ICD10: E11.621] [facility] CPT-[facility]: 75962 07/18/2016 ([id number]) 30003 EST. PATIENT, LEVEL III Diagnosis: Type 2 diabetes mellitus with hyperglycemia[ICD10: E11.65] Marcela Ha MD, [facility] CPT-4: 56417 06/22/2016 ([id number]) 01522 EST. PATIENT, LEVEL IV Diagnosis: Type 2 diabetes mellitus with hyperglycemia[ICD10: E11.65] Diagnosis: Mixed hyperlipidemia[ICD10: E78.2] Diagnosis: Other hemoglobinopathies[ICD10: D58.2] [facility] CPT-4: 98996 05/23/2016 ([id number]) 96912 EST. PATIENT, LEVEL IV Diagnosis: Type 2 diabetes mellitus with other specified complication[ICD10: E11.69] Diagnosis: Dehydration[ICD10: E86.0] [facility] CPT-4: 74215 05/15/2016 ([id number]) OFFICE VISIT, NEW - LEVEL 3 Diagnosis: Allergic contact dermatitis due to plants, except food[ICD10: L23.7] [facility] CPT-4: 79406 01/20/2016 Plan of Care Planned Activity Notes Codes Status Date Appointment: Marcela Oshea WPtel: [address] [place] [address] (30 min) Complex 01/14/2019 Visit Plan: Hypertension [...] Summary Completed 01/13/2019 Appointment: Marcela Oshea WPtel: [address] [place] [address] (30 min) Complex 01/10/2019 Visit Plan: Epigastric pain -start protonix daily- monitor symptoms Chest pain -work up negative done last week with Madeline-recommend appt with Dr Brennan Joint pain-check inflammation makers DM-check Hgb a1c 12/31/2018 Appointment: Marcela Oshea WPtel: [address] [place] [address] (15 min) Moderate 12/31/2018 Patient Education: Patient Medication Summary Completed 12/31/2018 Visit Plan: chest pain - EKG and cardiac enzymes OK - discussed with Dr. Ha - will treat for pneumonia - pt is to notify clinic if symptoms do not improve, if they worsen, or with any changes questions, or concerns. 12/26/2018 Appointment: [facility] [phone] [facility] ([facility] min) Complex 12/26/2018 Patient Education: Patient Medication Summary Completed 12/26/2018 Referral: Andrew Cross Patient informed. Referral info faxed. Completed Visit Plan: cough - improved - continue with inhalers - continue with symbicort - rx for proair for PRN use when pt is feelign short of breath with activity. 11/18/2018 Appointment: [facility] [phone] [facility] (15 min) Moderate 11/18/2018 Patient Education: Patient [...] of plan. 11/12/2018 Appointment: [facility] [phone] [phone] [place] (30 min) Complex 11/12/2018 Patient Education: Patient Medication Summary Completed 11/12/2018 Patient Education: Symbicort - 18-64 - eCopay Completed 11/12/2018 Care Plan: Referral Order SNOMED-CT : [id number] Pending 11/12/2018 Referral: Niko Mantilla Referral Completed 11/04/2018 Visit Plan: Pneumonia, cough - recent diagnosis of Moraxella Cattharalis - with sensitivity to levaquin - will give 2 wks of levaquin since he had improvement but no full resolution of symptoms. 10/30/2018 Appointment: Melida Ha WPtel: [facility] 30 min appointments only in this [...] for evaluation 10/24/2018 Appointment: Marcela Oshea WPtel: [phone] (30 min) Complex 10/24/2018 Patient Education: Patient Medication Summary Completed 10/24/2018 Care Plan: Referral Order SNOMED-CT : [id number] Pending 10/24/2018 Visit Plan: Hypotension - discussed [...] less controlled. 10/23/2018 Appointment: Melida Ha WPtel: [facility] [place] (15 min) Moderate 10/23/2018 Patient [...] plan. 10/21/2018 Appointment: [facility] [phone] [phone] [place] (30 min) Complex 10/21/2018 [...] discharge. 10/17/2018 Appointment: Mad[facility] Kennedy [facility] [phone] [facility] [place] (15 min) Moderate 10/17/2018 Patient Education: [...] worsen. 10/14/2018 Appointment: Marcela Oshea WPtel: [phone] [phone] (15 min) Moderate 10/14/2018 Patient Education: Patient Medication Summary Completed 10/14/2018 Care Plan: CHEST X-RAY 2VW FRONTAL&LATL LOINC : 56120-5 Pending 10/14/2018 Visit Plan: URI - Pt [...] allergy spray. 09/30/2018 Appointment: Madeline Kennedy WPtel: [facility] [address] (15 min) Moderate 09/30/2018 Patient Education: Patient [...] Hgb A1C 09/09/2018 Appointment: Marcela Oshea WPtel: [phone] [place] (15 min) Moderate 09/09/2018 Patient Education: Patient Medication Summary Completed 09/09/2018 Patient Education: Patient Medication Summary Completed 09/06/2018 Patient Education: Cholesterol Management Completed 09/06/2018 Care Plan: Comp Metabolic Pending 09/06/2018 Care Plan: Cbc With Differential Pending 09/06/2018 Care Plan: %Hba1C LOINC : 77255-6 Pending 09/06/2018 Care Plan: Tsh Pending 09/06/2018 Care Plan: Lipid Pending 09/06/2018 Appointment: Marcela Oshea WPtel: [phone] [place] [phone] [place] (15 min) Moderate 08/26/2018 Appointment: Marcela Oshea WPtel: [phone] [phone] [place] (15 min) Moderate 08/23/2018 Visit Plan: [...] clinic. 07/22/2018 Appointment: Melida Ha WPtel: [phone] [facility] [place] (15 min) Moderate 07/22/2018 Patient Education: [...] insomnia. 07/16/2018 Appointment: Marcela Oshea WPtel: [phone] [phone] [place] (30 min) Complex 07/16/2018 Patient Education: Patient Medication Summary Completed 07/16/2018 Visit Plan: cough - improved - notify clinic if symptoms do not completely resolve, or with any questions or concerns. 07/01/2018 Appointment: Madeline Kennedy [facility]Ptel: [phone] [facility] [place] (15 min) Moderate 07/01/2018 Patient Education: [...] spray. 06/28/2018 Appointment: Madeline Kennedy WPtel: [phone] [facility] (15 min) Moderate 06/28/2018 Patient Education: Patient Medication Summary Completed 06/28/2018 Patient Education: Patient Medication Summary Completed 06/21/2018 Care Plan: C RAMBO DC Pending 06/21/2018 Visit Plan: Diabetes Mellitus - [...] home. 06/18/2018 Appointment: [phone] (15 min) Moderate 06/18/2018 Patient Education: Patient [...] improves. 06/04/2018 Appointment: Melida Ha WPtel: [phone] [facility] (15 min) Moderate 06/04/2018 Patient Education: [...] allow for greater blood glucose control. Joint mbfw-aagamyyy-uakhhvb- symptoms have improved -stop meloxicam due to upset stomach-call if symptoms return 05/13/2018 Appointment: Marcela Oshea WPtel: [phone] [phone] (30 min) Complex 05/13/2018 Patient Education: Patient Medication Summary Completed 05/13/2018 Visit Plan: Bilateral hip usih-fbnnbisb-uklxjbp IM injection administered today for c/o continued myalgia/arthralgia. Patient to start taking Meloxicam 15mg PO daily. Advised to return to clinic if symptoms do not improve. 05/02/2018 Appointment: Marcela Oshea WPtel: [phone] [phone] (30 min) Complex 05/02/2018 Patient [...] readings at home. Diabetes Mellitus -check labs Fzmvzhmv-jdmkchn-czki bite-rx for doxycycline-follow up in 2 weeks 04/29/2018 Appointment: Marcela Oshea WPtel: [phone] [phone] (15 min) Moderate 04/29/2018 Patient Education: Patient Medication Summary Completed 04/29/2018 Appointment: [facility]el: [phone] (15 min) Moderate 04/15/2018 Appointment: [facility]Ptel: [phone] [phone] [place] (30 min) Complex 03/21/2018 Visit Plan: [...] cymbalta 03/13/2018 Appointment: Melida Ha WPtel: [phone] (30 min) Complex 03/13/2018 Patient Education: Patient Medication Summary Completed 03/13/2018 Visit Plan: DM-continue same medications-monitor blood sugars routinely as directed -rx for new glucometer and test strips provided Bipolar-currently depressed-patient start on vraylar-follow up in 2 weeks, sooner if needed. Patient and verbalied understanding of plan. Hypotension- stay off losartan 03/07/2018 Appointment: Marcela Oshea WPtel: [phone] [phone] [place] (30 min) Complex 03/07/2018 Patient Education: Patient Medication Summary Completed 03/07/2018 Appointment: Melida Ha WPtel: [phone] [facility] [place] (15 min) Moderate 03/04/2018 Visit Plan: [...] patient. 02/28/2018 Appointment: Marcela Oshea WPtel: [phone] [phone] [place] (30 min) Complex 02/28/2018 Patient [...] improving. 02/13/2018 Appointment: Madeline Kennedy WPtel: [phone] [facility] [place] (15 min) Moderate 02/13/2018 Patient Education: Patient Medication Summary Completed 02/13/2018 Referral: Sun Glynn Patient informed. Referral info faxed. Completed Visit Plan: DM-weight loss-not checking blood sugars- patient sent for labs today HTN-low ppcjy-unsgtkz-xfwsx labs Callus of foot and fissue of [...] improving. 01/29/2018 Appointment: Marcela Oshea WPtel: [phone] [phone] (30 min) Complex 01/29/2018 Patient Education: Patient Medication Summary Completed 01/29/2018 Care Plan: Comp Metabolic Cancelled 01/29/2018 Care Plan: Cbc With Differential Cancelled 01/29/2018 Care Plan: %Hba1C LOINC : 01603-9 Cancelled 01/29/2018 Care Plan: Referral Order SNOMED-CT : [id number] Cancelled 01/29/2018 Visit Plan: Fatigue, malaise, joint [...] concerns. 08/27/2017 Appointment: Madeline Kennedy WPtel: [phone] [facility] (15 min) Moderate 08/27/2017 Patient [...] Appointment: Mel[facility] Ha [facility]Ptel: [phone] (30 min) Complex 08/16/2017 Patient Education: Patient Medication Summary Completed 08/16/2017 Patient Education: Obesity Completed 08/16/2017 Appointment: Madeline Kennedy WPtel: [facility] (30 min) Complex 08/07/2017 Visit [...] considered contagious. 07/26/2017 Appointment: Madeline Kennedy WPtel: [facility]5 [facility] (15 min) Moderate 07/26/2017 Patient Education: Patient Medication Summary Completed 07/26/2017 Visit Plan: Cellulitis right foot-cultured today in the office-home health to reapply wound vac--appt with wound care on to evaluate for debridement- 07/03/2017 Appointment: Marcela Oshea WPtel: [facility]5 [phone] (30 min) Complex 07/03/2017 Patient Education: Patient Medication Summary Completed 07/03/2017 Visit Plan: Abrasion left arm - Pt was instructed to keep the wound clean, wash with antibacterial soap, use triple antibiotic ointment, call if redness, pustular drainage, or any other acute concerns. 06/29/2017 Appointment: Marcela Oshea WPtel: [phone] [phone] (15 min) Moderate 06/29/2017 Patient Education: Patient [...] of plan. 06/18/2017 Appointment: Marcela Oshea WPtel: [address] [place] [address] (15 min) Moderate 06/18/2017 Patient Education: Patient [...] diet-start prilosec 06/07/2017 Appointment: Marcela Oshea WPtel: [address] [place], [place] [phone] (10 min) Simple 06/07/2017 Patient Education: Patient [...] bite-continue doxycycline 05/17/2017 Appointment: Marcela Oshea WPtel: [address] [place], [place] [phone] [place] [address] (30 min) Complex 05/17/2017 Patient Education: Patient [...] you want anai edge called into [facility]. 05/04/2017 Appointment: Marcela Oshea WPtel: [address] [place] [address] (30 min) Complex 05/04/2017 Patient Education: Patient [...] home. Cough-resolved 03/15/2017 Appointment: Marcela Oshea WPtel: [address] [place] [address] (15 min) Moderate 03/15/2017 Patient Education: Patient Medication Summary Completed 03/15/2017 Appointment: Marcela Oshea WPtel: [address] [place] [address] (30 min) Complex 03/12/2017 Visit Plan: Feng [...] as discussed 02/16/2017 Appointment: Marcela Oshea WPtel: [facility]9 [facility] [place] [address] (15 min) Moderate 02/16/2017 Patient Education: Patient [...] less controlled. 02/12/2017 Appointment: Marcela Oshea WPtel: [facility]9 [phone] (30 min) Complex 02/12/2017 Patient Education: Patient Medication Summary Completed 02/12/2017 Appointment: Marcela Oshea WPtel: [facility]3 [phone] [place] [address] (30 min) Complex 02/06/2017 Visit Plan: Diabetes [...] will consider 02/05/2017 Appointment: Marcela Oshea WPtel: [facility]0 [phone] (30 min) Complex 02/05/2017 Patient Education: Patient Medication Summary Completed 02/05/2017 Appointment: Marcela Oshea WPtel: [facility]2 [phone] (30 min) Complex 01/30/2017 Visit Plan: Acute confusion-uncontrolled diabetes- chronically noncompliant with treatment and stopped his insulin several months ago-r/o stroke vs DKA-Dr Ha in to evaluate patient-plan to admit for further work up and treatment-patient's called and she transported him to the hospital 01/29/2017 Appointment: Marcela Oshea WPtel: [phone] [phone] [place] (30 min) Complex 01/29/2017 Patient Education: Patient Medication Summary Completed 01/29/2017 Patient Education: Obesity Completed 01/29/2017 Visit Plan: Right foot pain-MRI shows foreign body-appt with Dr Grewal for evaluation on Sunday. 10/13/2016 Appointment: Marcela Oshea WPtel: [phone] [phone] [place] (15 min) Moderate 10/13/2016 Patient Education: Patient Medication Summary Completed 10/13/2016 Appointment: Marcela Oshea WPtel: [phone] [phone] [place] (30 min) Complex 10/12/2016 Visit Plan: Right foot amqk-iivoyhow-hlgiz washer dropped on foot-xray negative but pain continues to increase-recommend MRI of foot for further evaluation-refer to wound care for lesions on right foot, patient has diabetes and history of osteomyelitis-culture obtained today-continue oral abx- follow up in the office on , sooner if needed 10/09/2016 Visit Plan: Right foot qqoq-euxglsyh-bqwgt washer dropped on foot-xray negative but pain continues to increase-recommend MRI of foot for further evaluation-refer to wound care for lesions on right foot, patient has diabetes and history of osteomyelitis-culture obtained today-continue oral abx- follow up in the office on , sooner if needed 10/09/2016 Visit Plan: Right foot jgbm-sbtirjpa-hiamz washer dropped on foot-xray negative but pain continues to increase-recommend MRI of foot for further evaluation-refer to wound care for lesions on right foot, patient has diabetes and history of osteomyelitis-culture obtained today-continue oral abx- follow up in the office on , sooner if needed 10/09/2016 Appointment: Marcela Oshea WPtel: [facility]6 [facility] [place] [address] (30 min) Complex 10/09/2016 Patient Education: Patient Medication Summary Completed 10/09/2016 Visit Plan: Cellulitis - continue with oral antibiotics as previously directed, return to clinic as previously directed, call for acute change in symptoms, worsening redness, warmth, discharge. 10/06/2016 Appointment: Marcela Oshea WPtel: [address] [place] [address] (10 min) Simple 10/06/2016 Patient Education: Patient Medication Summary Completed 10/06/2016 Appointment: Marcela Oshea WPtel: [address] [place] [address] (30 min) Complex 08/24/2016 Referral: Sun Glynn Referral Completed 07/21/2016 Visit Plan: Low back pain- history of spinal fusion- patient for xray lumbar spine-RX sent to [facility] and instructed on use-topical voltaren samples provided and instructed on use. Ok to use tylenol as needed as well. The patient is to call the office if the pain is worsening or does not improve. Pressure ulcer left 4th toe-refer to Dr Glynn for evaluation 07/18/2016 Appointment: Marcela Oshea WPtel: [facility]4 [place] [phone] (30 min) Complex 07/18/2016 Patient Education: Patient Medication Summary Completed 07/18/2016 Patient Education: Obesity Completed 07/18/2016 Care Plan: Referral Order SNOMED-CT : [id number] Cancelled 07/18/2016 Visit Plan: Diabetes Mellitus - [...] control. 06/22/2016 Appointment: Marcela Oshea WPtel: [phone] [phone] (30 min) Complex 06/22/2016 Patient [...] 05/23/2016 Appointment: Marcela Oshea WPtel: [phone] [phone] (30 min) Complex 05/23/2016 Patient [...] plan. 05/15/2016 Appointment: Marcela Oshea WPtel: [phone] [phone] (15 min) Moderate 05/15/2016 Patient [...] increase in pain, worsening redness, warmth, discharge. breathing treatments 3 times a day x [...] by Dr Brennan -chest pain has resolved REPEAT CBC Toujeo 10 units daily . [...] blood glucose control. Elevated Hgb-check CBC today PROTONIX 40MG DAILY CHECK LABS APPT WITH [...] for fracture from injury . Right foot fnpg-ahibjjkb-sqhnc washer dropped on foot-xray negative but pain [...] for fracture from injury . Right foot kxsc-efirfjtz-xniwb washer dropped on foot-xray negative but pain [...] for fracture from injury . Right foot jwve-inkdturi-yzpks washer dropped on foot-xray negative but pain [...] gel ulcer left 4th toe-refer to manager outreach . Low back pain- history of spinal fusion-patient for xray lumbar spine-RX sent to [facility] and instructed on use-topical voltaren samples [...] you want blue minesh called into [facility]. REPEAT LABS BEFORE YOUR NEXT APPOINTMENT [...] blood glucose control. Tick bite-continue doxycycline . Bilateral hip teov-pkhswkhl-eqdtsuh IM injection administered today for c/o continued myalgia/arthralgia. Patient to start taking Meloxicam 15mg PO daily. Advised to return to clinic if symptoms do not improve. . DM-weight loss-not checking blood sugars-patient sent for labs today HTN-low yejhp-glkjzyo-ntiko labs Callus of foot and fissue of [...] readings are starting to become less controlled. Huheymwry-jrxeipyk-kvcyewbd to monitor Generalized weakness-refer for PT-patient refuses [...] allow for greater blood glucose control. Joint qxak-vhddodqe-yeaeijg-symptoms have improved -stop meloxicam due to upset [...] readings at home. Diabetes Mellitus -check labs Wtxnzmse-exyzqdt-uhyn bite-rx for doxycycline-follow up in 2 weeks [...]
[2019-03-10] MEDS ORDERED: KETOROLAC 30 MG/ML VIAL IVP STA (10:45)
[2019-03-10] MEDS ORDERED: diphenhydrAMINE 50 MG/ML INJ (BENADRYL) IV ONE (10:45)
[2019-03-10] MEDS ORDERED: PROMETHAZINE INJ 25 MG/ML (PHENERGAN) AMP IVP STA (10:45)
[2019-03-10] MEDS ORDERED: NS IV 1000 ML 1,000 ML IV STA (10:45)
[2019-03-10 11:55] LABS: BILIRUBIN,URINE NEGATIVE (NEGATIVE); CLARITY,URINE CLEAR; COLOR,URINE YELLOW; GLUCOSE, URINE (UA) NEGATIVE (NEGATIVE); KETONES,URINE NEGATIVE (NEGATIVE); LEUKOCYTE ESTERASE ,URINE NEGATIVE (NEGATIVE); NITRITE,URINE NEGATIVE (NEGATIVE); PH,URINE 7 (5-9); PROTEIN,URINE 1+ (NEGATIVE); UROBILINOGEN,URINE NORMAL (NORMAL)
[2019-03-10] MEDS ORDERED: DEXAMETHASONE 10 MG/ML (DECADRON) 1 ML VIAL IV ONE (12:00)
[2019-03-10 12:04] LABS: BACTERIA,URINE NEGATIVE /HPF; SQUAMOUS EPITHELIAL CELL,UR 0-2 /HPF; WBC,URINE RARE /HPF
[2019-03-10 13:14] VITALS: BP 130/87
== END 2019-03-10 13:14 | disposition home or self-care (01) ==
LOC: EDUNIT# 08:34 → ER 08:36
DX: R07.9 Chest pain, unspecified (principal); R51 Headache; I25.10 Atherosclerotic heart disease of native coronary artery without angina pectoris; I25.2 Old myocardial infarction; E78.00 Pure hypercholesterolemia, unspecified; I10 Essential (primary) hypertension; F41.9 Anxiety disorder, unspecified; F32.9 Major depressive disorder, single episode, unspecified; E11.40 Type 2 diabetes mellitus with diabetic neuropathy, unspecified; Z89.429 Acquired absence of other toe(s), unspecified side; Z98.1 Arthrodesis status; Z82.49 Family history of ischemic heart disease and other diseases of the circulatory system; Z87.19 Personal history of other diseases of the digestive system; Z87.442 Personal history of urinary calculi; Z79.82 Long term (current) use of aspirin; Z86.73 Personal history of transient ischemic attack (TIA), and cerebral infarction without residual deficits; Z88.8 Allergy status to other drugs, medicaments and biological substances; Z79.4 Long term (current) use of insulin; Z95.5 Presence of coronary angioplasty implant and graft; Z90.49 Acquired absence of other specified parts of digestive tract; Z98.890 Other specified postprocedural states; Z90.89 Acquired absence of other organs
CPT/HCPCS: 36415; 70450; 71045; 80053; 81000; 83605; 83735; 83874; 84484; 85025; 85379; 85610; 85730; 86141; 87040; 93005; 93041

== ENCOUNTER → 2019-04-03 | Outpatient (CLI) | payer OTHER ==
--- NOTE | 2019-04-03 18:57 | Diagnostic Imaging Report ---
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 Swelling. TECHNIQUE: Three views of the left hand. CORRELATION STUDY: 03/26/2007. FINDINGS: There is rather significant amount of soft tissue edema along the dorsal aspect of the hand. There is an abnormal bone density distal to the tip of the ulnar styloid process. This is somewhat indeterminate, but likely chronic and of no acute significance. Overall, no definitive acute bony abnormality. IMPRESSION: 1. Rather pronounced soft tissue swelling along the dorsal aspect of the hand. However, definitive acute bony abnormality is not demonstrated. If symptoms persist, follow-up imaging is recommended for reevaluation. Dictated by: Dictated on workstation # [id number]
== END ==
LOC: RAD 15:51
PROVIDERS: ATTEND Family Medicine
DX: S69.92XA Unspecified injury of left wrist, hand and finger(s), initial encounter (principal); W22.8XXA Striking against or struck by other objects, initial encounter
CPT/HCPCS: 73130

== ENCOUNTER 2019-04-08 15:25 | Inpatient (IN) | payer OTHER ==
[~2019-04-08] VITALS: Ht 188 cm; Wt 112.6 kg
[2019-04-08] VITALS (9 sets, daily range): BP systolic 99–136; BP diastolic 65–95
[~2019-04-08 15:25] MED LIST changes: -ASPIRIN E.C. 81 MG (ECOTRIN) TAB PO SCH; -CARV3.122 PO; -CATHETER FLUSH 10 ML SYR IV PRN; -ISOS30TA3 PO; -NITROGLYCERIN 0.4 MG SL TABS BTL 25'S SL PRN; -NS IV 1000 ML 1,000 ML IV SCH; -ONDANSETRON 4 MG/2 ML (SDV) Z0FRAN IV PRN; -inSUlin ASPART (NovoLOG) 1 UNIT/0.01 ML (CHARGE PER UNIT) SC SCH
[2019-04-08] MEDS ORDERED: ASPIRIN 81 MG CHEW (CHILDREN'S ASA) PO ONE (15:30)
[2019-04-08 15:40] LABS: HEMATOCRIT 46 % (40-54); HEMOGLOBIN 16.5 G/DL (13.3-17.7); MEAN CORPUSCULAR HEMOGLOBIN 30 PG (25-34); MEAN CORPUSCULAR HGB CONC 36 G/DL (32-36); MEAN CORPUSCULAR VOLUME 85 FL (80-99); PLATELET COUNT 190 10^3/uL (130-400); RED CELL DISTRIBUTION WIDTH 13.9 % (10.0-14.5); WHITE BLOOD COUNT 7.5 10^3/uL (4.3-11.0)
[2019-04-08 15:43] LABS: BASOPHILS % (AUTO) 0 % (0-10); EOSINOPHILS % (AUTO) 1 % (0-10); LYMPHOCYTES # (AUTO) 2.3 X 10^3 (1.0-4.0); LYMPHOCYTES % (AUTO) 29 % (12-44); MONOCYTES # (AUTO) 0.8 X 10^3 (0.0-1.0); MONOCYTES % (AUTO) 10 % (0-12); NEUTROPHILS # (AUTO) 4.8 X 10^3 (1.8-7.8); NEUTROPHILS % (AUTO) 61 % (42-75)
[2019-04-08] MEDS ORDERED: NS IV 1000 ML 1,000 ML ONE (15:48)
[2019-04-08] MEDS ORDERED: NS IV 1000 ML 1,000 ML IV ONE ×2 (15:55→17:19)
--- NOTE | 2019-04-08 15:55 | Diagnostic Imaging Report ---
CLINICAL INDICATION: Patient complains of weakness and feeling like he is going to pass out times approximately 2 days. EXAM: Portable chest x-ray, upright view. COMPARISON: Chest x-ray dated 03/10/2019. FINDINGS: Lungs/pleura: The lungs are clear. There is no pneumothorax. There is no pleural effusion. Mediastinum: Unremarkable. Pulmonary vasculature: Unremarkable. Heart: Unremarkable. Bones/extrathoracic soft tissue: Unremarkable. IMPRESSION: There is no radiographic evidence of acute cardiopulmonary process. Dictated by: Dictated on workstation # [id number]
[2019-04-08 15:56] LABS: ALBUMIN 4.4 GM/DL (3.2-4.5); BILIRUBIN,TOTAL 2.1 MG/DL (0.1-1.0); CALCIUM 10.3 MG/DL (8.5-10.1); CREATININE SERUM 1.34 MG/DL (0.60-1.30); MAGNESIUM 1.7 MG/DL (1.8-2.4); POTASSIUM 4.7 MMOL/L (3.6-5.0); TOTAL PROTEIN 8.1 GM/DL (6.4-8.2)
[2019-04-08 15:57] LABS: INR 0.9 (0.8-1.4); PROTHROMBIN TIME PATIENT 12.7 SEC (12.2-14.7)
--- NOTE | 2019-04-08 16:31 | ED Chest Pain ---
General Chief Complaint: Chest Pain Stated Complaint: CP Nursing Triage Note: PT BROUGHT OVER BY OUTPATIENT SERVICES NURSE. PT REPOTING CHEST PAIN SINCE YESTERDAY WITH SOB. PT REPORTS CHEST PAIN HAPPENS WHEN HE GETS UP TO WALK AND HE GETS VERY DIZZY AND LIGHTHEADED. WAS AT OUTPATIENT SERVICES TO GET FLUIDS, LABS, AND EKG. PT ALSO REPORTS HIS RIGHT PINKY AND RING FINGER HAVE BEEN FALLING ASLEEP FOR THE LAST FEW WEEKS. Nursing Sepsis Screen: No Definite Risk Source: patient Exam Limitations: no limitations History of Present Illness Date Seen by Provider: Apr 08, 2019 Time Seen by Provider: 15:26 Initial Comments This 58-year-old gentleman presents to the emergency room with complaints of chest pain and rapid fatigue with any type of exertion over the last 2-3 days. He also has lost his appetite. He has known history of coronary artery disease with stenting performed last summer and again this December. He is also a diabetic with history of wound infections. He has had his toes amputated because of infection and has had wound VAC treatment performed on an abdominal surgical wound. He has no problems with wounds at present. He was seen in Dr. Ha's office today for his symptoms. He was sent for outpatient hydration and lab work. However, because he was hypotensive and having chest pain on exertion in the outpatient lab, he was sent to the ER. He is denying chest pain at rest at present. 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 Allergies and Home Medications Allergies Coded Allergies: linezolid (Verified Allergy, Unknown, 05/28/18) Home Medications Acetaminophen 500 Mg Tablet, 1,000 MG PO HS, (Reported) TAKES 2 (500MG) TABLETS Amoxicillin/Potassium Clav 1 Each Tablet, 1 TAB PO TID, (Reported) 10 DAY THERAPY FILLED 12-26-18 Aspirin 81 Mg Tablet.dr 81 MG PO DAILY Prescribed by: ROSA MARIA HA on 05/31/18 104 Atorvastatin Calcium 80 Mg Tablet, 80 MG PO DAILY, (Reported) Carvedilol 6.25 Mg Tablet, 6.25 MG PO BID Prescribed by: ROSA MARIA HA on 05/31/18 104 Clonazepam 1 Mg Tablet, 2 MG PO HS, (Reported) TAKES 2 (1 MG) TABLETS Insulin Aspart 300 Units/3 Ml Solution, 10 UNITS SC TIDAC, (Reported) Insulin Degludec 200 Unit/1 Ml Insuln.pen, 50 UNITS SC DAILY, (Reported) Multivitamin 1 Each Tablet, 1 TAB PO DAILY, (Reported) Pantoprazole Sodium 40 Mg Tablet.dr, 40 MG PO DAILY, (Reported) Pregabalin 50 Mg Capsule, 50 MG PO HS, (Reported) Ticagrelor 90 Mg Tablet, 90 MG PO BID Prescribed by: ROSA MARIA HA on 05/31/18 1042 Valsartan 80 Mg Tablet, 40 MG PO DAILY TAKES 1/2 (80MG) TABLET -take bp prior to medication and hold if blood pressure is less than 110 on top number Prescribed by: ROSA MARIA HA on 01/03/19 09 [Nitroglycerin] 0.4 MG BTL, 0 MG SL UD PRN for CHEST PAIN Prescribed by: ROSA MARIA HA on 01/03/19 09 Patient Home Medication List Home Medication List Reviewed: Yes Review of Systems Review of Systems Constitutional: weakness EENTM: No Symptoms Reported Respiratory: SOA With Exertion Cardiovascular: See HPI Gastrointestinal: See HPI, Poor Appetite Genitourinary: No Symptoms Reported Musculoskeletal: no symptoms reported Skin: no symptoms reported Psychiatric/Neurological: Anxiety Endocrine: No Symptoms Reported Hematologic/Lymphatic: No Symptoms Reported Past Wsscekm-Yimwfx-Iieaaz Hx Past Med/Social Hx: Reviewed Nursing Past Med/Soc Hx Patient Social History Alcohol Use: Denies Use Recreational Drug Use: No Smoking Status: Never a Smoker 2nd Hand Smoke Exposure: No Recent Foreign Travel: No Contact w/Someone Who Travel: No Recent Infectious Disease Expo: No Recent Hopitalizations: Yes (JANUARY 2019 HEART STENT) Physical Abuse: No Sexual Abuse: No Immunizations Up To Date Tetanus Booster (TDap): Unknown PED Vaccines UTD: No Date of Pneumonia Vaccine: Jan 02, 2011 Date of Influenza Vaccine: Aug 07, 2018 Seasonal Allergies Seasonal Allergies: No Past Medical History Surgeries: Yes (ACL; Wrist; Heart stents) Abdominal, Amputation, Appendectomy, Gallbladder, Orthopedic, Tonsillectomy Respiratory: No Currently Using CPAP: No Currently Using BIPAP: No Cardiac: Yes (Heart stents) Coronary Artery Disease, Heart Attack, High Cholesterol, Hypertension Neurological: Yes Neuropathy, Stroke Reproductive Disorders: No Sexually Transmitted Disease: No HIV/AIDS: No Genitourinary: No Kidney Stones Gastrointestinal: Yes Abdominal Hernia Musculoskeletal: Yes (OSTEOMYELITIS WITH MULTIPLE TOE AMPUTATIONS, BACK FUSION X3) Degenerate Disk Disease, Arthritis, Chronic Back Pain Endocrine: Yes Diabetes, Insulin dep HEENT: No Loss of Vision: Bilateral Hearing Impairment: Denies Cancer: No Psychosocial: Yes Anxiety, Depression Integumentary: No Blood Disorders: No Adverse Reaction/Blood Tranf: No Family Medical History Family history: Cardiovascular disease 19 FATHER Family history: Diabetes mellitus 19 MOTHER Heart Disease, Diabetes, Hypertension, Psychiatric Problems, Renal Disease, Vascular Disease Physical Exam Vital Signs Vital Signs - First Documented 04/08/19 15:25 Temp 95.6 Pulse 92 Resp 14 B/P (MAP) 102/72 (82) Pulse Ox 100 Capillary Refill : Less Than 3 Seconds Height, Weight, BMI Height: 6'2.00" Weight: 240lbs. 0.0oz. [id number]; 31.7 BMI Method:Stated General Appearance: WD/WN, Anxious HEENT: PERRL/EOMI, Normal ENT Inspection Neck: Non Tender Respiratory: Lungs Clear, Normal Breath Sounds, No Accessory Muscle Use, No Respiratory Distress Cardiovascular: Regular Rate, Rhythm, No Edema, No Murmur, Normal Peripheral Pulses Gastrointestinal: Normal Bowel Sounds, Non Tender, Soft Extremity: Normal Inspection, No Calf Tenderness, No Pedal Edema, Other (shoes on but patient has history of amputations) Neurologic/Psychiatric: Alert, Oriented x3, No Motor/Sensory Deficits, Normal Mood/Affect, hot room attendant II-XII Norm as Tested Skin: Normal Color, Warm/Dry Progress/Results/Core Measures Results/Orders Lab Results Laboratory Tests Test 04/08/19 15:20 04/08/19 15:35 Range/Units White Blood Count 7.5 4.3-11.0 10^3/uL Red Blood Count 5.47 4.35-5.85 10^6/uL Hemoglobin 16.5 13.3-17.7 G/DL Hematocrit 46 40-54 % Mean Corpuscular Volume 85 80-99 FL Mean Corpuscular Hemoglobin 30 25-34 PG Mean Corpuscular Hemoglobin Concent 36 32-36 G/DL Red Cell Distribution Width 13.9 10.0-14.5 % Platelet Count 190 130-400 10^3/uL Mean Platelet Volume 11.0 H 7.4-10.4 FL Neutrophils (%) (Auto) 61 42-75 % Lymphocytes (%) (Auto) 29 12-44 % Monocytes (%) (Auto) 10 0-12 % Eosinophils (%) (Auto) 1 0-10 % Basophils (%) (Auto) 0 0-10 % Neutrophils # (Auto) 4.8 1.8-7.8 X 10^3 Lymphocytes # (Auto) 2.3 1.0-4.0 X 10^3 Monocytes # (Auto) 0.8 0.0-1.0 X 10^3 Eosinophils # (Auto) 0.0 0.0-0.3 10^3/uL Basophils # (Auto) 0.0 0.0-0.1 10^3/uL Sodium Level 139 135-145 MMOL/L Potassium Level 4.7 3.6-5.0 MMOL/L Chloride Level 103 98-107 MMOL/L Carbon Dioxide Level 26 21-32 MMOL/L Anion Gap 10 5-14 MMOL/L Blood Urea Nitrogen 16 7-18 MG/DL Creatinine 1.34 H 0.60-1.30 MG/DL Estimat Glomerular Filtration Rate 55 BUN/Creatinine Ratio 12 Glucose Level 132 H 70-105 MG/DL Calcium Level 10.3 H 8.5-10.1 MG/DL Corrected Calcium 10.0 8.5-10.1 MG/DL Magnesium Level 1.7 L 1.8-2.4 MG/DL Total Bilirubin 2.1 H 0.1-1.0 MG/DL Aspartate Amino Transf (AST/SGOT) 36 H 5-34 U/L Alanine Aminotransferase (ALT/SGPT) 44 0-55 U/L Alkaline Phosphatase 101 40-136 U/L Myoglobin 121.9 H 10.0-92.0 NG/ML Troponin I 0.035 H <0.028 NG/ML Total Protein 8.1 6.4-8.2 GM/DL Albumin 4.4 3.2-4.5 GM/DL Lipase 82 H 8-78 U/L Prothrombin Time 12.7 12.2-14.7 SEC INR Comment 0.9 0.8-1.4 Activated Partial Thromboplast Time 31 24-35 SEC My Orders Orders - DAISHA JUAREZ MD Ns Iv 1000 Ml (Sodium Chloride 0.9%) (04/08/19 15:48) Ns Iv 1000 Ml (Sodium Chloride 0.9%) (04/08/19 15:55) Enoxaparin Injection (Lovenox Injection) (04/08/19 16:45) Enoxaparin Injection (Lovenox Injection) (04/08/19 17:00) Medications Given in ED Current Medications Medications Dose Ordered Sig/Aylin Route Start Time Stop Time Status Last Admin Dose Admin Aspirin 324 mg ONCE ONCE PO 04/08/19 15:30 04/08/19 15:31 DC 04/08/19 15:38 324 MG Enoxaparin Sodium 100 mg ONCE ONCE SC 04/08/19 16:45 04/08/19 16:46 DC 04/08/19 17:00 100 MG Sodium Chloride 1,000 ml @ 0 mls/hr Q0M ONCE IV 04/08/19 15:55 04/08/19 15:56 DC 04/08/19 15:57 1,000 MLS/HR Vital Signs/I&O 04/08/19 15:25 Temp 95.6 Pulse 92 Resp 14 B/P (MAP) 102/72 (82) Pulse Ox 100 Blood Pressure Mean: 82 Progress Progress Note : Progress Note Hypotension resolved with a liter of IV normal saline. A second liter was ordered as blood pressures were still only in the 90s systolic. Patient was not having active chest pain while at rest. Case was discussed with Dr. Patel who would like Lovenox administered and patient admitted with nothing by mouth status after midnight in preparation for possible procedures. Case was also discussed with Dr. Ha who will be the attending physician. Sliding scale insulin was ordered. Initial ECG Impression Date: Apr 08, 2019 Initial ECG Impression Time: 15:29 Initial ECG Rate: 96 Initial ECG Rhythm: Normal Sinus Initial ECG Intervals Left anterior fascicular block by automated read Comment Sinus rhythm with no ST elevation or depression. No axis deviation. Diagnostic Imaging Diagonstic Imaging: Xray Plain Films/CT/US/NM/MRI: chest Comments Chest x-ray viewed by me and report reviewed. See report below: NAME: LUIS BARRERA [facility] REC#: [id number] PT STATUS: REG ER : 1960 PHYSICIAN: JAJA AVITIA APRN ADMIT DATE: 04/08/19/ER Draft Date of Exam:04/08/19 CHEST 1 VIEW, AP/PA ONLY CLINICAL INDICATION: Patient complains of weakness and feeling like he is going to pass out times approximately 2 days. EXAM: Portable chest x-ray, upright view. COMPARISON: Chest x-ray dated 03/10/2019. FINDINGS: Lungs/pleura: The lungs are clear. There is no pneumothorax. There is no pleural effusion. Mediastinum: Unremarkable. Pulmonary vasculature: Unremarkable. Heart: Unremarkable. Bones/extrathoracic soft tissue: Unremarkable. IMPRESSION: There is no radiographic evidence of acute cardiopulmonary process. Dictated on workstation # [id number] Dict: 04/08/19 1552 Trans: 04/08/19 1554 [id number] Interpreted by: PRISCILA VELAZQUEZ MD Departure Communication (Admissions) Time/Spoke to Admitting Phy: 17:00 Dr. Ha Time/Spoke to Consulting Phy: 16:40 Dr. Patel Impression Primary Impression: Chest pain on exertion Additional Impressions: Coronary artery disease Qualified Codes: I25.118 - Atherosclerotic heart disease of [place] coronary artery with other forms of angina pectoris Hypotension Qualified Codes: I95.0 - Idiopathic hypotension Disposition: ADMITTED INPATIENT Condition: Improved Admissions Decision to Admit Reason: Admit from ER (General) Decision to Admit/Date: Apr 08, 2019 Time/Decision to Admit Time: 15:30 Departure-Patient Inst. Referrals: ROSA MARIA HA MD (PCP/Family) Primary Care Physician DAISHA JUAREZ MD Apr 08, 2019 16:31
[2019-04-08] MEDS ORDERED: ENOXAPARIN 100 MG/1 ML (LOVENOX) SYR SC ONE ×2 (16:45→17:00)
--- NOTE | 2019-04-08 17:10 | NUR ---
pt states he is frustrated and concerned because he is now having the light headed feeling when he is laying down and not moving not just when he is getting up.
--- NOTE | 2019-04-08 17:26 | NUR ---
REPORT TAKEN AT THIS TIME FROM GHAZALA ANTONY. THIS RN WILL ASSUME CARE OF THIS PATIENT WHEN HE ARRIVES TO THIS FLOOR.
--- NOTE | 2019-04-08 17:26 | NUR ---
report given to Love VIVAR on medical
[2019-04-08] MEDS ORDERED: NITROGLYCERIN 0.4 MG SL TABS BTL 25'S SL PRN (18:00)
[2019-04-08] MEDS ORDERED: NITROGLYCERIN 0.4 MG SL TABS BTL 25'S SL NR (18:00)
--- NOTE | 2019-04-08 18:00 | Consultation-Cardiology ---
HPI-Cardiology Cardiology Consultation Date of Consultation 04/08/19 Date of Admission Time Seen by Provider: 17:55 Indication: chest pain HPI 58 years old and no extensive cardiac history, underwent multiple intervention last cardiac catheterization with stenting done in December 2018, since then has been having chest pain, reporting recurrent chest pain with exertion, limited e xercise ability, shortness of breath on exertion. May fatigue and loss of energy. Came into the emergency room from Dr. Ha's office, still having some chest tightness. Reporting discomfort all over his chest with exertion and occasionally at rest. Home Medications & Allergies Allergies: Coded Allergies: linezolid (Verified Allergy, Unknown, 05/28/18) Home Medication List Reviewed: Yes ZDB-Jlnuva-Stmczo Hx Patient Social History Marital Status: Employed/Student: employed Alcohol Use: Denies Use Recreational Drug Use: No Smoking Status: Never a Smoker 2nd Hand Smoke Exposure: No Recent Foreign Travel: No Recent Infectious Disease Expo: No Recent Hopitalizations: Yes (JANUARY 2019 HEART STENT) Immunizations Up To Date Tetanus Booster (TDap): Unknown Date of Pneumonia Vaccine: Jan 02, 2011 Date of Influenza Vaccine: Aug 07, 2018 Past Medical History discussed below Family Medical History Significant Family History: Heart Disease, Diabetes, Hypertension, Psychiatric Problems, Renal Disease, Vascular Disease Family History: Family history: Cardiovascular disease 19 FATHER Family history: Diabetes mellitus 19 MOTHER Review of Systems-General Review of Systems Constitutional: no symptoms reported, malaise EENTM: see HPI, no symptoms reported Respiratory: see HPI; No cough; dyspnea on exertion; No hemoptysis, No orthopnea, No phlegm, No short of breath, No stridor, No wheezing, No other Cardiovascular: see HPI, chest pain; No edema, No Hx of Intervention, No palpitations, No syncope, No vascular heart diseas, No other Gastrointestinal: no symptoms reported, see HPI Genitourinary: no symptoms reported, see HPI Musculoskeletal: no symptoms reported, see HPI Skin: no symptoms reported, see HPI Psychiatric/Neurological: No Symptoms Reported, See HPI Reviewed Test Results Reviewed Test Results Lab Laboratory Tests Test 04/08/19 15:20 04/08/19 15:35 Range/Units White Blood Count 7.5 4.3-11.0 10^3/uL Red Blood Count 5.47 4.35-5.85 10^6/uL Hemoglobin 16.5 13.3-17.7 G/DL Hematocrit 46 40-54 % Mean Corpuscular Volume 85 80-99 FL Mean Corpuscular Hemoglobin 30 25-34 PG Mean Corpuscular Hemoglobin Concent 36 32-36 G/DL Red Cell Distribution Width 13.9 10.0-14.5 % Platelet Count 190 130-400 10^3/uL Mean Platelet Volume 11.0 H 7.4-10.4 FL Neutrophils (%) (Auto) 61 42-75 % Lymphocytes (%) (Auto) 29 12-44 % Monocytes (%) (Auto) 10 0-12 % Eosinophils (%) (Auto) 1 0-10 % Basophils (%) (Auto) 0 0-10 % Neutrophils # (Auto) 4.8 1.8-7.8 X 10^3 Lymphocytes # (Auto) 2.3 1.0-4.0 X 10^3 Monocytes # (Auto) 0.8 0.0-1.0 X 10^3 Eosinophils # (Auto) 0.0 0.0-0.3 10^3/uL Basophils # (Auto) 0.0 0.0-0.1 10^3/uL Sodium Level 139 135-145 MMOL/L Potassium Level 4.7 3.6-5.0 MMOL/L Chloride Level 103 98-107 MMOL/L Carbon Dioxide Level 26 21-32 MMOL/L Anion Gap 10 5-14 MMOL/L Blood Urea Nitrogen 16 7-18 MG/DL Creatinine 1.34 H 0.60-1.30 MG/DL Estimat Glomerular Filtration Rate 55 BUN/Creatinine Ratio 12 Glucose Level 132 H 70-105 MG/DL Calcium Level 10.3 H 8.5-10.1 MG/DL Corrected Calcium 10.0 8.5-10.1 MG/DL Magnesium Level 1.7 L 1.8-2.4 MG/DL Total Bilirubin 2.1 H 0.1-1.0 MG/DL Aspartate Amino Transf (AST/SGOT) 36 H 5-34 U/L Alanine Aminotransferase (ALT/SGPT) 44 0-55 U/L Alkaline Phosphatase 101 40-136 U/L Myoglobin 121.9 H 10.0-92.0 NG/ML Troponin I 0.035 H <0.028 NG/ML Total Protein 8.1 6.4-8.2 GM/DL Albumin 4.4 3.2-4.5 GM/DL Lipase 82 H 8-78 U/L Prothrombin Time 12.7 12.2-14.7 SEC INR Comment 0.9 0.8-1.4 Activated Partial Thromboplast Time 31 24-35 SEC Physical Exam Physical Exam Vital Signs Vital Signs - First Documented 04/08/19 15:25 Temp 95.6 Pulse 92 Resp 14 B/P (MAP) 102/72 (82) Pulse Ox 100 Capillary Refill : Less Than 3 Seconds Height, Weight, BMI Height: 6'2.00" Weight: 240lbs. 0.0oz. 108.928151kp; 31.7 BMI Method:Stated General Appearance: No Apparent Distress, WD/WN Eyes: Bilateral Eye Normal Inspection, Bilateral Eye PERRL, Bilateral Eye EOMI HEENT: PERRL/EOMI, TMs Normal, Normal ENT Inspection, Pharynx Normal, Moist Mucous Membranes Neck: Full Range of Motion, Normal Inspection, Non Tender, Supple, Carotid Br uit Respiratory: Chest Non Tender, Normal Breath Sounds, No Accessory Muscle Use, No Respiratory Distress Cardiovascular: Regular Rate, Rhythm, No Edema, No Gallop, No JVD, No Murmur, Normal Peripheral Pulses Gastrointestinal: Normal Bowel Sounds, No Organomegaly, No Pulsatile Mass, Non Tender, Soft Back: Normal Inspection, No CVA Tenderness, No Vertebral Tenderness Extremity: Normal Capillary Refill, Normal Inspection, Normal Range of Motion, Non Tender, No Calf Tenderness, No Pedal Edema Neurologic/Psychiatric: Alert, Oriented x3, No Motor/Sensory Deficits, Normal Mood/Affect Skin: Normal Color, Warm/Dry Lymphatic: No Adenopathy A/P-Cardiology Admission Diagnosis Unstable angina Coronary artery disease Hypertension Hyperlipidemia Assessment/Plan Unstable angina, recurrent chest pain. I'll start him on nitroglycerin and evaluate tolerance and response. Coronary artery disease, history of myocardial infarction in May 2018, had, maintained on aspirin and Brilinta. Had another cardiac catheterization in December 2018 showed mild in-stent restenosis in the LAD with patent stent in the obtuse marginal branch severe distal right coronary artery stenosis treated with drug-eluting stent in the right coronary artery. Still having significant recurrent chest pain, I'll start nitroglycerin and evaluate tolerance and response. History of foot ulcer, recurrent infection, treated with antibiotic reporting full healing. History of cardiomyopathy with ejection fraction 45-50 percent, restart home medication monitor tolerance and response. History of small pericardial effusion, I will reevaluate 2-D echocardiogram Hypertension, monitor blood pressure Hyperlipidemia, continue on statin and monitor lipids Depression, anxiety. JONH MARIA MD Apr 08, 2019 18:00
--- OUTSIDE RECORDS SUMMARY | 2019-04-08 20:30 | XMS REPORT | Clinical Summary ---
Author Author [facility] Organization [facility] Address Unknown Phone Unavailable Care Team Providers Care Senior Visual Designer Name Role Phone Gordo Ferguson MD Unavailable Gildardo Craig MD PCP Georgina Roberts RN Unavailable Unavailable Bren Howard RN Unavailable Unavailable Rohini Muniz DO Unavailable Unavailable Source Comments Some departments are not documenting in the electronic medical record. If you d o not see the information that you expected, contact Release of Information in Critical access hospital Information Management department at [phone] for further assistan ce in locating additional records.[facility] Allergies No Known Allergies Medications End [...] Taken Vital Sign Reading 11/17/2013 3:22 PM SHOWER ATTENDANT Blood Pressure 146/79 11/17/2013 3:22 PM SHOWER ATTENDANT Pulse 100 11/17/2013 3:22 PM SHOWER ATTENDANT Temperature 36.2 C (97.1 F) 11/17/2013 3:22 PM SHOWER ATTENDANT Respiratory Rate 20 09/20/2013 9:44 PM SHOWER ATTENDANT Oxygen Saturation 99% - Inhaled Oxygen - Concentration 11/17/2013 3:22 PM SHOWER ATTENDANT Weight 116.1 kg (256 lb) 11/17/2013 3:22 PM SHOWER ATTENDANT Height 188 cm (6' 2") 11/17/2013 3:22 PM SHOWER ATTENDANT Body Mass Index 32.87 Plan of Treatment [...] and code status on file. For more i nformation, please contact: [facility] [address] [place] [id number] Date Inactivated Comments Code Status Date Activated 09/08/2013 6:52 PM Full Code 08/30/2013 11:52 PM Provider has discussed Code Status Yes w/Patient or Family? 08/16/2013 7:47 PM Full Code 08/13/2013 5:24 PM Provider has discussed Code Status Yes w/Patient or Family?
--- OUTSIDE RECORDS SUMMARY | 2019-04-08 20:35 | XMS REPORT | CCD ---
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 Name Role Phone PP Unavailable CCM Unavailable Summary Purpose Interface Exchange Insurance Providers Payer name Policy type / Coverage type Covered republican ID Effective Begin Date Effective End Date [employer] Commercial Insurance [id number] 2018 Unknown Family history Father Diagnosis Age At Onset Hyperlipidemia Unknown Heart Attack Unknown Mother Diagnosis Age At Onset Hypertension Unknown Social History Social History Element Codes Description Effective Dates Marital status Unknown Mignon 01/20/2016 Number of children Unknown 4 01/20/2016 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/[address]: 784756179 Never smoker 01/20/[address]: 749290810 Never drinks alcohol 01/20/2016 Allergies, Adverse Reactions, Alerts Substance Reaction Codes Entered Date Inactivated Date Status * NO KNOWN DRUG ALLERGIES Unknown 05/23/2016 No Inactive Date Active Past Medical History Illness Codes Condition Status Onset Date Resolved Date Contusion of left hand, initial encounter ICD-9: 923.20 ICD-10: S60.222A Active 04/03/2019 Unknown Headache ICD-9: 784.0 ICD-10: R51 Active 04/03/2019 Unknown Nasal congestion ICD-9: 478.19 ICD-10: R09.81 Active 02/16/2017 Unknown Pain in left finger(s) ICD-9: 729.5 ICD-10: M79.645 Active 04/03/2019 Unknown Pain in left hand ICD-9: 729.5 ICD-10: M79.642 Active 04/03/2019 Unknown Essential (primary) hypertension ICD-9: 401.1 ICD-10: I10 Active 03/01/2017 Unknown 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 ICD-10: I95.2 Active 02/17/2019 Unknown Other fatigue ICD-9: 780.79 ICD-10: R53.83 Active 08/27/2017 Unknown Atherosclerotic heart disease of [place] coronary artery without angina pectoris ICD-9: 414.00 ICD-10: I25.10 Active 01/13/2019 Unknown Epigastric pain ICD-9: 789.06 ICD-10: R10.13 Active 12/31/2018 Unknown Pain in joints of right hand ICD-9: 719.44 ICD-10: M25.541 Active 10/24/2018 Unknown Shortness of breath ICD- 9: 786.05 ICD-10: R06.02 Active 12/31/2018 Unknown Type 2 diabetes mellitus with hyperglycemia ICD-9: 250.00 ICD-10: E11.65 Active 06/21/2016 Unknown Cough ICD-9: 786.2 ICD-10: R05 Active 02/16/2017 Unknown Other chest pain ICD-9: 786.59 ICD-10: R07.89 Active 12/26/2018 Unknown Pneumonia due to other Gram-negative bacteria ICD-9: 482.83 ICD-10: J15.6 Active 10/30/2018 Unknown Trigger finger, right middle finger ICD-9: 727.03 ICD-10: M65.331 Active 10/24/2018 Unknown Type 2 diabetes mellitus with foot ulcer ICD-9: 250.80 ICD-10: E11.621 Active 10/08/2016 Unknown Cellulitis of right finger ICD-9: 681.00 ICD-10: L03.011 Active 10/21/2018 Unknown Pain in right hand ICD- 9: 729.5 ICD-10: M79.641 Active 10/21/2018 Unknown Cellulitis [...] ICD-10: J01.01 Active 02/16/2017 Unknown Mixed hyperlipidemia ICD- 9: 272.2 ICD-10: E78.2 Active 05/22/2016 Unknown Bipolar disorder, current episode depressed, moderate ICD-9: 296.52 ICD-10: F31.32 Active 03/07/2018 Unknown Type 2 diabetes mellitus with other specified complication ICD-9: 250.80 ICD-10: E11.69 Active 05/14/2016 Unknown VACCIN FOR INFLUENZA ICD- 9: V04.81 ICD-10: Z23 Active 08/16/2017 Unknown Insomnia due to medical condition ICD-9: 327.01 ICD-10: G47.01 Active 07/16/2018 Unknown Other allergic rhinitis ICD-9: 477.8 ICD-10: J30.89 Active 06/28/2018 Unknown Diarrhea, unspecified ICD- 9: 787.91 ICD-10: R19.7 Active 06/21/2018 Unknown Localized edema ICD-9: 782.3 ICD-10: R60.0 Active 06/04/2018 Unknown Myalgia ICD-9: 729.1 ICD-10: M79.1 Active 04/29/2018 Unknown Pain in left hip ICD-9: 719.45 ICD-10: M25.552 Active 05/02/2018 Unknown Pain in right hip ICD-9: 719.45 ICD-10: M25.551 Active 05/02/2018 Unknown Major depressive disorder, single episode, moderate ICD-9: 296.22 ICD-10: F32.1 Active 02/28/2018 Unknown Orthostatic hypotension ICD-9: 458.0 ICD-10: I95.1 Active 02/28/2018 Unknown Gastro-esophageal reflux disease without esophagitis ICD-9: 530.81 ICD-10: K21.9 Active 06/07/2017 Unknown Other malaise ICD-9: 780.79 ICD-10: R53.81 Active 08/27/2017 Unknown Pain in left shoulder ICD- 9: 719.41 ICD-10: M25.512 Active 08/27/2017 Unknown Pain [...] ICD-9: 692.6 ICD-10: L23.7 Active 01/19/2016 Unknown Disorientation, unspecified ICD-9: 293.0 ICD-10: R41.0 Active 01/29/2017 Unknown Muscle weakness (generalized) ICD-9: 728.87 ICD-10: M62.81 Active 01/29/2017 Unknown Pain in right foot ICD- 9: 729.5 ICD-10: M79.671 Active 10/08/2016 Unknown Low [...] Problems Condition Codes Effective Dates Condition Status Contusion of left hand, initial encounter ICD-9: 923.20 ICD-10: S60.222A 04/03/2019 Active Headache ICD-9: 784.0 ICD-10: R51 04/03/2019 Active Nasal congestion ICD-9: 478.19 ICD-10: R09.81 02/16/2017 Active Pain in left finger(s) ICD-9: 729.5 ICD-10: M79.645 04/03/2019 Active Pain in left hand ICD-9: 729.5 ICD-10: M79.642 04/03/2019 Active Essential (primary) hypertension ICD-9: 401.1 ICD-10: I10 03/01/2017 Active 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 ICD-10: I95.2 02/17/2019 Active Other fatigue ICD-9: 780.79 ICD-10: R53.83 08/27/2017 Active Atherosclerotic heart disease of [place] coronary artery without angina pectoris ICD-9: 414.00 ICD-10: I25.10 01/13/2019 Active Epigastric pain ICD-9: 789.06 ICD-10: R10.13 12/31/2018 Active Pain in joints of right hand ICD-9: 719.44 ICD-10: M25.541 10/24/2018 Active Shortness of breath ICD- 9: 786.05 ICD-10: R06.02 12/31/2018 Active Type 2 diabetes mellitus with hyperglycemia ICD-9: 250.00 ICD-10: E11.65 06/21/2016 Active Cough ICD-9: 786.2 ICD-10: R05 02/16/2017 Active Other chest pain ICD-9: 786.59 ICD-10: R07.89 12/26/2018 Active Pneumonia due to other Gram-negative bacteria ICD-9: 482.83 ICD-10: J15.6 10/30/2018 Active Trigger finger, right middle finger ICD-9: 727.03 ICD-10: M65.331 10/24/2018 Active Type 2 diabetes mellitus with foot ulcer ICD-9: 250.80 ICD-10: E11.621 10/08/2016 Active Cellulitis of right finger ICD-9: 681.00 ICD-10: L03.011 10/21/2018 Active Pain in right hand ICD- 9: 729.5 ICD-10: M79.641 10/21/2018 Active Cellulitis of [...] 461.0 ICD-10: J01.01 02/16/2017 Active Mixed hyperlipidemia ICD- 9: 272.2 ICD-10: E78.2 05/22/2016 Active Bipolar disorder, current episode depressed, moderate ICD-9: 296.52 ICD-10: F31.32 03/07/2018 Active Type 2 diabetes mellitus with other specified complication ICD-9: 250.80 ICD-10: E11.69 05/14/2016 Active VACCIN FOR INFLUENZA ICD- 9: V04.81 ICD-10: Z23 08/16/2017 Active Insomnia due to medical condition ICD-9: 327.01 ICD-10: G47.01 07/16/2018 Active Other allergic rhinitis ICD-9: 477.8 ICD-10: J30.89 06/28/2018 Active Diarrhea, unspecified ICD- 9: 787.91 ICD-10: R19.7 06/21/2018 Active Localized edema ICD-9: 782.3 ICD-10: R60.0 06/04/2018 Active Myalgia ICD-9: 729.1 ICD-10: M79.1 04/29/2018 Active Pain in left hip ICD-9: 719.45 ICD-10: M25.552 05/02/2018 Active Pain in right hip ICD-9: 719.45 ICD-10: M25.551 05/02/2018 Active Major depressive disorder, single episode, moderate ICD-9: 296.22 ICD-10: F32.1 02/28/2018 Active Orthostatic hypotension ICD-9: 458.0 ICD-10: I95.1 02/28/2018 Active Gastro-esophageal reflux disease without esophagitis ICD-9: 530.81 ICD-10: K21.9 06/07/2017 Active Other malaise ICD-9: 780.79 ICD-10: R53.81 08/27/2017 Active Pain in left shoulder ICD- 9: 719.41 ICD-10: M25.512 08/27/2017 Active Pain in [...] food ICD-9: 692.6 ICD-10: L23.7 01/19/2016 Active Disorientation, unspecified ICD-9: 293.0 ICD-10: R41.0 01/29/2017 Active Muscle weakness (generalized) ICD-9: 728.87 ICD-10: M62.81 01/29/2017 Active Pain in right foot ICD- 9: 729.5 ICD-10: M79.671 10/08/2016 Active Low back [...] Start Date Stop Date Status Fill Instructions Topamax 25 mg tablet RxNorm: 474738 1 Tablet(s) PO BID 03/11/2019 04/09/2019 Active Topamax 25 mg tablet RxNorm: 876079 1 Tablet(s) PO BID 03/11/2019 03/10/2019 Inactive valsartan 40 mg tablet RxNorm: 386918 1/2 Tablet(s) PO daily 03/07/2019 09/02/2019 Active metoprolol succinate ER 25 mg tablet,extended release 24 hr RxNorm: 734207 1 Tablet(s) PO QPM 03/07/2019 03/09/2019 Inactive Cymbalta 30 mg capsule,delayed release RxNorm: 984810 1 Capsule(s) PO daily 02/27/2019 No Stop Date Active Lyrica 50 mg capsule RxNorm: 680308 Capsule(s) PO daily 02/26/2019 06/25/2019 Active Cymbalta 60 mg capsule,delayed release RxNorm: 296189 1 Capsule(s) PO QAM 02/19/2019 02/26/2019 Inactive will call for refill- dose change Coreg 6.25 mg tablet RxNorm: 401908 1 Tablet(s) daily 02/19/2019 02/26/2019 Inactive clonazepam 1 mg tablet RxNorm: 800868 2 Tablet(s) PO HS 02/18/2019 06/14/2019 Active Tresiba FlexTouch U-200 insulin 200 unit/mL (3 mL) subcutaneous pen RxNorm: 4612497 50 Unit(s) SQ daily 01/08/2019 05/07/2019 Active please give him 30 day supply Protonix 40 mg tablet,delayed release RxNorm: 712792 1 Tablet(s) PO daily 12/31/2018 01/29/2019 Inactive Tresiba FlexTouch U-200 insulin 200 unit/mL (3 mL) subcutaneous pen RxNorm: 1669308 50 Unit(s) SQ daily 12/31/2018 01/07/2019 Inactive please give him 30 day supply Augmentin 500 mg-125 mg tablet RxNorm: 750160 1 Tablet(s) PO TID 12/26/2018 01/04/2019 Inactive Augmentin 500 mg-125 mg tablet RxNorm: 019193 1 Tablet(s) PO TID 12/26/2018 12/25/2018 Inactive ProAir HFA 90 mcg/actuation aerosol inhaler RxNorm: 4825466 2 Puff(s) INH QID as needed 11/18/2018 No Stop Date Active Lyrica 50 mg capsule RxNorm: 357031 Capsule(s) PO daily 11/13/2018 02/07/2019 Inactive Cymbalta 30 mg capsule,delayed release RxNorm: 712678 1 Capsule(s) PO QAM 11/13/2018 02/18/2019 Inactive Lyrica 50 mg capsule RxNorm: 407793 Capsule(s) PO daily 11/13/2018 11/12/2018 Inactive Symbicort 160 mcg-4.5 mcg/actuation HFA aerosol inhaler RxNorm: 4867740 2 Puff(s) INH BID 11/12/2018 12/11/2018 Inactive albuterol sulfate 2.5 mg/3 mL (0.083 %) solution for nebulization RxNorm: 735533 3 Milliliter(s) INH UD 11/07/2018 No Stop Date Active azithromycin 500 mg tablet RxNorm: 907607 500mg on day 1 then 250 mg daily x 4 more day Tablet(s) PO 11/07/2018 11/06/2018 Inactive 500mg on day 1 and then 250mg daily 2-4 cefdinir 300 mg capsule RxNorm: 365972 1 Capsule(s) PO BID 11/07/2018 11/06/2018 Inactive azithromycin 500 mg tablet RxNorm: 450998 500mg on day 1 then 250 mg daily x 4 more day Tablet(s) PO 11/07/2018 01/07/2019 Inactive 500mg on day 1 and then 250mg daily 2-4 cefdinir 300 mg capsule RxNorm: 221424 1 Capsule(s) PO BID 11/07/2018 11/13/2018 Inactive Levaquin 500 mg tablet RxNorm: 574327 1 Tablet(s) PO daily TAKE ONE TABLET BY MOUTH DAILY UNTIL GONE 10/31/2018 11/13/2018 Inactive Levaquin 500 mg tablet RxNorm: 329884 1 Tablet(s) PO daily 10/30/2018 11/12/2018 Inactive valsartan 80 mg tablet RxNorm: 661441 1/2 Tablet(s) PO daily 10/23/2018 03/06/2019 Inactive doxycycline hyclate 100 mg tablet RxNorm: 3094582 1 Tablet(s) PO BID 10/21/2018 10/27/2018 Inactive ketorolac 60 mg/2 mL intramuscular solution RxNorm: 0917254 Milliliter(s) IM 10/21/2018 10/21/2018 Inactive Levaquin 500 mg tablet RxNorm: 035760 1 Tablet(s) PO daily 10/17/2018 10/31/2018 Inactive Tessalon Perles 100 mg capsule RxNorm: 117801 1-2 Capsule(s) PO TID PRN 10/14/2018 No Stop Date Active albuterol sulfate 2.5 mg/3 mL (0.083 %) solution for nebulization RxNorm: 594871 3 Milliliter(s) INH UD 10/14/2018 11/06/2018 Inactive Levaquin 500 mg tablet RxNorm: 743562 1 Tablet(s) PO daily 10/14/2018 10/16/2018 Inactive albuterol sulfate 2.5 mg/3 mL (0.083 %) solution for nebulization RxNorm: 430943 3 Milliliter(s) INH UD 09/30/2018 10/13/2018 Inactive Kenalog 40 mg/mL suspension for injection RxNorm: 0511186 1.5 Milliliter(s) Inj 09/30/2018 09/30/2018 Inactive Coreg 6.25 mg tablet RxNorm: 188571 TAKE ONE TABLET BY MOUTH TWICE A DAY 09/30/2018 02/18/2019 Inactive Keflex 500 mg capsule RxNorm: 028457 1 Capsule(s) PO TID 09/27/2018 10/03/2018 Inactive prednisone 20 mg tablet RxNorm: 484807 2 Tablet(s) PO daily 09/27/2018 09/29/2018 Inactive Kenalog 40 mg/mL suspension for injection RxNorm: 5211247 Milliliter(s) Inj 09/11/2018 09/11/2018 Inactive Zyrtec 10 mg tablet RxNorm: 5699903 1 Tablet(s) PO daily 09/09/2018 10/08/2018 Inactive Keflex 500 mg capsule RxNorm: 684072 1 Capsule(s) PO TID 09/09/2018 09/15/2018 Inactive Tresiba FlexTouch U-200 insulin 200 unit/mL (3 mL) subcutaneous pen RxNorm: 7172092 50 Unit(s) SQ daily 08/30/2018 08/29/2018 Inactive please give him 30 day supply Tresiba FlexTouch U-200 insulin 200 unit/mL (3 mL) subcutaneous pen RxNorm: 9319258 50 Unit(s) SQ daily 08/30/2018 09/28/2018 Inactive please give him 30 day supply Novolog Flexpen U-100 Insulin aspart 100 unit/mL subcutaneous RxNorm: 2088489 8 Unit(s) SQ AC 08/13/2018 No Stop Date Active Novolog Flexpen U-100 Insulin aspart 100 unit/mL subcutaneous RxNorm: 3264953 8 Unit(s) SQ AC 07/22/2018 2018 Inactive this is an update on his medication Novolog Flexpen U-100 Insulin aspart 100 unit/mL subcutaneous RxNorm: 6242829 12 Unit(s) SQ AC 07/05/2018 07/21/2018 Inactive this is an update on his medication Toujeo SoloStar U-300 Insulin 300 unit/mL (1.5 mL) subcutaneous pen RxNorm: 7491916 INJECT 50 UNITS UNDER THE SKIN DAILY 07/01/2018 08/29/2018 Inactive Mucinex 600 mg tablet, extended release RxNorm: 412043 1 Tablet(s) PO BID 06/28/2018 07/04/2018 Inactive Zofran 4 mg tablet RxNorm: 132285 1 Tablet(s) PO TID as needed nausea 06/28/2018 07/02/2018 Inactive Kenalog 40 mg/mL suspension for injection RxNorm: 3749523 Milliliter(s) Inj 06/28/2018 06/28/2018 Inactive Flonase Allergy Relief 50 mcg/actuation nasal spray,suspension RxNorm: 6616396 1 Holman NASAL BID 06/28/2018 07/08/2018 Inactive Lyrica 50 mg capsule RxNorm: 064992 Capsule(s) PO daily 06/24/2018 07/06/2018 Inactive Novolog Flexpen U-100 Insulin aspart 100 unit/mL subcutaneous RxNorm: 2433225 10 Unit(s) SQ AC 06/18/2018 07/04/2018 Inactive this is an update on his medication Lasix 20 mg tablet RxNorm: 183262 1 Tablet(s) PO BIW 06/12/2018 07/02/2018 Inactive atorvastatin 80 mg tablet RxNorm: 925255 1 Tablet(s) PO QHS 06/10/2018 12/06/2018 Inactive clonazepam 1 mg tablet RxNorm: 196696 2 Tablet(s) PO HS as needed 06/10/2018 06/08/2018 Inactive clonazepam 1 mg tablet RxNorm: 696865 2 Tablet(s) PO HS 06/10/2018 02/17/2019 Inactive Lyrica 50 mg capsule RxNorm: 083091 Capsule(s) PO daily 06/10/2018 07/08/2018 Inactive Lasix 20 mg tablet RxNorm: 956583 1 Tablet(s) PO TIW 06/04/2018 06/11/2018 Inactive Toujeo SoloStar U-300 Insulin 300 unit/mL (1.5 mL) subcutaneous pen RxNorm: 3217956 50 Unit(s) SQ daily 05/07/2018 06/30/2018 Inactive meloxicam 15 mg tablet RxNorm: 368753 15 Milligram(s) PO daily 05/02/2018 05/12/2018 Inactive ketorolac 30 mg/mL injection solution RxNorm: 443993 2 Milliliter(s) Inj 05/02/2018 05/02/2018 Inactive Toujeo SoloStar U-300 Insulin 300 unit/mL (1.5 mL) subcutaneous pen RxNorm: 3697998 45 Unit(s) daily 04/29/2018 05/02/2018 Inactive clonazepam 1 mg tablet RxNorm: 963910 1 Tablet(s) PO Q8 as needed 04/29/2018 06/09/2018 Inactive doxycycline hyclate 100 mg tablet RxNorm: 4571722 1 Tablet(s) PO BID 04/29/2018 05/12/2018 Inactive Cymbalta 30 mg capsule,delayed release RxNorm: 570666 1 Capsule(s) PO QAM 03/13/2018 10/08/2018 Inactive Lexapro 10 mg tablet RxNorm: 621867 1 Tablet(s) PO QPM 02/28/2018 03/03/2018 Inactive Toujeo SoloStar U-300 Insulin 300 unit/mL (1.5 mL) subcutaneous pen RxNorm: 7345466 20 Unit(s) daily 02/28/2018 03/03/2018 Inactive Protonix 40 mg tablet,delayed release RxNorm: 521507 1 Tablet(s) PO daily 01/29/2018 06/09/2018 Inactive clonazepam 1 mg tablet RxNorm: 923822 1 Tablet(s) PO Q8 as needed 12/12/2017 03/10/2018 Inactive Tamiflu 75 mg capsule RxNorm: 989579 1 Capsule(s) PO BID 11/29/2017 12/03/2017 Inactive doxycycline hyclate 100 mg capsule RxNorm: 2999619 1 Capsule(s) PO BID 09/07/2017 09/20/2017 Inactive doxycycline hyclate 100 mg capsule RxNorm: 8610676 1 Capsule(s) PO BID 08/27/2017 09/06/2017 Inactive prednisone 20 mg tablet RxNorm: 876729 2 Tablet(s) PO daily 08/27/2017 08/31/2017 Inactive clopidogrel 75 mg tablet RxNorm: 712136 1 Tablet(s) PO daily 08/24/2017 06/09/2018 Inactive atorvastatin 40 mg tablet RxNorm: 900029 1 Tablet(s) PO QHS 08/24/2017 02/27/2018 Inactive losartan 25 mg tablet RxNorm: 319996 TAKE ONE TABLET BY MOUTH DAILY 08/22/2017 06/09/2018 Inactive Toujeo SoloStar 300 unit/mL (1.5 mL) subcutaneous insulin pen RxNorm: 0483445 45 Unit(s) daily 08/17/2017 08/20/2017 Inactive mupirocin 2 % topical ointment RxNorm: 405367 1 Application TOP TID to the lesions on chest 08/16/2017 08/25/2017 Inactive Toujeo SoloStar 300 unit/mL (1.5 mL) subcutaneous insulin pen RxNorm: 6600953 40 Unit(s) daily 08/16/2017 08/16/2017 Inactive valacyclovir 1 gram tablet RxNorm: 136922 1 Tablet(s) PO TID 07/26/2017 08/01/2017 Inactive clonazepam 1 mg tablet RxNorm: 776243 1 Tablet(s) PO Q8 as needed 07/03/2017 09/30/2017 Inactive Levaquin 500 mg tablet RxNorm: 604467 1 Tablet(s) PO daily 06/22/2017 06/25/2017 Inactive Levaquin 500 mg tablet RxNorm: 592390 1 Tablet(s) PO daily 06/18/2017 06/21/2017 Inactive losartan 25 mg tablet RxNorm: 013003 1 Tablet(s) PO daily 06/18/2017 08/16/2017 Inactive nystatin 100,000 unit/mL oral suspension RxNorm: 863853 5 Milliliter(s) PO QID Swish et swallow 06/18/2017 06/17/2017 Inactive nystatin 100,000 unit/mL oral suspension RxNorm: 937039 5 Milliliter(s) PO QID Swish et swallow 06/18/2017 06/27/2017 Inactive Cipro 500 mg tablet RxNorm: 259007 1 Tablet(s) PO BID 06/12/2017 06/18/2017 Inactive Cipro 500 mg tablet RxNorm: 077161 1 Tablet(s) PO BID 06/12/2017 06/11/2017 Inactive Toujeo SoloStar 300 unit/mL (1.5 mL) subcutaneous insulin pen RxNorm: 2143601 INJECT 10 UNITS UNDER THE SKIN DAILY 06/12/2017 08/15/2017 Inactive Keflex 500 mg capsule RxNorm: 766595 1 Capsule(s) PO TID 06/07/2017 06/13/2017 Inactive doxycycline hyclate 100 mg capsule RxNorm: 1809126 1 Capsule(s) PO BID 05/17/2017 05/21/2017 Inactive doxycycline hyclate 100 mg capsule RxNorm: 8987184 1 Capsule(s) PO BID 05/11/2017 05/16/2017 Inactive losartan 25 mg tablet RxNorm: 741409 1 Tablet(s) PO daily 03/01/2017 06/17/2017 Inactive atorvastatin 40 mg tablet RxNorm: 518611 1 Tablet(s) PO daily 03/01/2017 08/23/2017 Inactive clopidogrel 75 mg tablet RxNorm: 004083 1 Tablet(s) PO daily 03/01/2017 08/23/2017 Inactive Flonase Allergy Relief 50 mcg/actuation nasal spray,suspension RxNorm: 5448628 2 Holman NASAL daily 02/16/2017 02/25/2017 Inactive Augmentin 875 mg-125 mg tablet RxNorm: 741952 1 Tablet(s) PO BID 02/16/2017 02/22/2017 Inactive GET PROBIOTIC TO TAKE WHILE ON ABX Tamiflu 75 mg capsule RxNorm: 586769 1 Capsule(s) PO BID 02/16/2017 02/20/2017 Inactive ceftriaxone 500 mg solution for injection RxNorm: 3824200 1 Milliliter(s) Inj 02/16/2017 02/16/2017 Inactive Kenalog 40 mg/mL suspension for injection RxNorm: 1202664 1 Milliliter(s) Inj 02/16/2017 02/16/2017 Inactive Toujeo SoloStar 300 unit/mL (1.5 mL) subcutaneous insulin pen RxNorm: 8728550 25 Unit(s) SQ QAM 02/12/2017 06/10/2017 Inactive Toujeo SoloStar 300 unit/mL (1.5 mL) subcutaneous insulin pen RxNorm: 9946705 10 Unit(s) SQ QAM 02/05/2017 02/11/2017 Inactive lisinopril 10 mg tablet RxNorm: 738538 1 Tablet(s) PO daily 02/01/2017 02/28/2017 Inactive atorvastatin 40 mg tablet RxNorm: 884307 1 Tablet(s) PO daily 02/01/2017 02/28/2017 Inactive doxycycline hyclate 100 mg capsule RxNorm: 5292454 1 Capsule(s) PO BID 02/01/2017 02/10/2017 Inactive clonazepam 1 mg tablet RxNorm: 923252 1 Tablet(s) PO Q8 as needed 10/09/2016 01/05/2017 Inactive ceftriaxone 1 gram solution for injection RxNorm: 3592201 Inj 10/06/2016 10/06/2016 Inactive cyclobenzaprine 10 mg tablet RxNorm: 126259 1/2-1 Tablet(s) PO TID PRN 07/18/2016 01/28/2017 Inactive clonazepam 1 mg tablet RxNorm: 151246 1 Tablet(s) PO Q8 as needed 05/31/2016 05/29/2016 Inactive clonazepam 1 mg tablet RxNorm: 166917 1 Tablet(s) PO Q8 as needed 05/31/2016 08/28/2016 Inactive Toujeo SoloStar 300 unit/mL (1.5 mL) subcutaneous insulin pen RxNorm: 0893863 10 Unit(s) SQ daily 05/23/2016 01/28/2017 Inactive Crestor 10 mg tablet RxNorm: 846120 1 Tablet(s) PO QHS 05/19/2016 01/28/2017 Inactive Crestor 10 mg tablet RxNorm: 812440 1 Tablet(s) PO QHS 05/19/2016 05/18/2016 Inactive clonazepam 1 mg tablet RxNorm: 824169 1 Tablet(s) PO Q8 as needed 04/25/2016 05/30/2016 Inactive prednisone 20 mg tablet RxNorm: 010839 3 Tablet(s) PO daily 02/11/2016 02/10/2016 Inactive prednisone 20 mg tablet RxNorm: 236588 3 Tablet(s) PO daily 02/11/2016 05/14/2016 Inactive Kenalog 40 mg/mL suspension for injection RxNorm: 7158507 Milliliter(s) Inj 01/20/2016 01/20/2016 Inactive aspirin 81 mg tablet,delayed release RxNorm: 582047 1 Tablet(s) PO daily No Start Date Active Brilinta 90 mg tablet RxNorm: 2412461 1 Tablet(s) PO BID No Start Date Active acetaminophen 500 mg tablet RxNorm: 352080 1-2 Tablet(s) PO as needed No Start Date Active clopidogrel 75 mg tablet RxNorm: 423121 1 Tablet(s) PO daily No Start Date 02/28/2017 Inactive Novolog Flexpen U-100 Insulin aspart 100 unit/mL subcutaneous RxNorm: 5522783 5 units with breakfast lunch and 10 supper Unit(s) SQ No Start Date 06/17/2018 Inactive clonazepam 1 mg tablet RxNorm: 034884 1 Tablet(s) PO QHS No Start Date 04/24/2016 Inactive Coreg 6.25 mg tablet RxNorm: 274082 1 Tablet(s) PO BID No Start Date 09/29/2018 Inactive acyclovir 400 mg tablet RxNorm: 273173 2 Tablet(s) PO 5x daily No Start Date 02/28/2017 Inactive Lyrica 50 mg capsule RxNorm: 732926 Capsule(s) PO BID No Start Date 06/09/2018 Inactive Vraylar 3 mg capsule RxNorm: 1794302 1 Capsule(s) PO daily No Start Date 03/12/2018 Inactive valsartan 80 mg tablet RxNorm: 463931 1 Tablet(s) PO daily No Start Date 10/22/2018 Inactive Medication Administered Medication Codes Instructions Start Date Status ketorolac 60 mg/2 mL intramuscular solution RxNorm: 9968176 Milliliter 10/21/2018 No longer Active Kenalog 40 mg/mL suspension for injection RxNorm: 3967487 1.5Milliliter 09/30/2018 No longer Active Kenalog 40 mg/mL suspension for injection RxNorm: 7079184 Milliliter 09/11/2018 No longer Active Kenalog 40 mg/mL suspension for injection RxNorm: 6836691 Milliliter 06/28/2018 No longer Active ketorolac 30 mg/mL injection solution RxNorm: 252730 2Milliliter 05/02/2018 No longer Active ceftriaxone 500 mg solution for injection RxNorm: 5924176 1Milliliter 02/16/2017 No longer Active Kenalog 40 mg/mL suspension for injection RxNorm: 0899934 1Milliliter 02/16/2017 No longer Active ceftriaxone 1 gram solution for injection RxNorm: 5097677 10/06/2016 No longer Active Kenalog 40 mg/mL suspension for injection RxNorm: 6948990 Milliliter 01/20/2016 No longer Active Immunizations Vaccine Codes Date Status Influenza CVX: 141 07/22/2018 completed Influenza CVX: 141 08/16/2017 completed Assessments Condition Codes Effective Dates Pain in left finger(s) ICD-10: M79.645 ICD-9: 729.5 04/03/2019 Pain in left hand ICD-10: M79.642 ICD-9: 729.5 04/03/2019 Headache ICD-10: R51 ICD-9: 784.0 04/03/2019 Nasal congestion ICD-10: R09.81 ICD-9: 478.19 04/03/2019 Contusion of left hand, initial encounter ICD-10: S60.222A ICD-9: 923.20 04/03/2019 Essential (primary) hypertension ICD-10: I10 ICD-9: 401.1 03/07/2019 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-10: I95.2 ICD-9: 458.8 02/27/2019 Other fatigue ICD-10: R53.83 ICD-9: 780.79 02/17/2019 Atherosclerotic heart disease of [place] coronary artery without angina pectoris ICD-10: I25.10 [...] 09/06/2018 Bipolar disorder, current episode depressed, moderate ICD-10: F31.32 ICD-9: 296.52 07/22/2018 VACCIN FOR INFLUENZA ICD-10: Z23 ICD-9: V04.81 07/22/2018 Type 2 diabetes mellitus with other specified complication ICD- 10: E11.69 ICD-9: 250.80 07/22/2018 Insomnia due to [...] 458.0 03/07/2018 Gastro-esophageal reflux disease without esophagitis ICD-10: K21.9 ICD-9: 530.81 02/13/2018 Other malaise ICD-10: [...] contact dermatitis due to plants, except food ICD-10: L23.7 ICD-9: 692.6 05/04/2017 Muscle weakness (generalized) ICD-10: M62.81 ICD-9: 728.87 [...] For Visit Effective Dates Notes hand pain 04/03/2019 tinnitus 03/07/2019 blood pressure followup 02/27/2019 vertigo [...] Item Item Code Result Date Culture Sputum 184163 LOWER RESPIRATORY TRACT CULTURE SEE NOTES 11/14/2018 Culture Sputum [id number] LOWER RESPIRATORY TRACT CULTURE SEE NOTES 10/16/2018 LIPID GRP [id number] CHOLESTEROL TNP:Duplicate Order 09/10/2018 LIPID GRP Triglyceride TNP:Duplicate Order 09/10/2018 LIPID GRP HDL CHOLESTEROL TNP:Duplicate Order 09/10/2018 LIPID GRP Chol/HDL Ratio TNP:Duplicate Order 09/10/2018 LIPID GRP LDL Cholesterol TNP:Duplicate Order 09/10/2018 A1C HPLC [id number] Hgb A1c 40597-4 TNP:Duplicate Order 09/10/2018 C Diff An [id number] GDH TNP:Lab Request 06/22/2018 C Diff An [id number] Toxin A/B TNP:Lab Request 06/22/2018 C Diff An [id number] C Diff Analyzer TNP:Lab Request 06/22/2018 C Diff An [id number] IC OK? TNP:Lab Request 06/22/2018 CBC [id number] WBC 6.4 10e9/L 05/02/2018 CBC [id number] RBC 5.60 10e12/L 05/02/2018 CBC [id number] HEMOGLOBIN 17.0 g/dL 05/02/2018 CBC [id number] HEMATOCRIT 48.0 % 05/02/2018 CBC [id number] MCV 85.7 fL 05/02/2018 CBC [id number] MCH 30.4 pg 05/02/2018 CBC 2763750 MCHC 35.4 g/dL 05/02/2018 CBC [id number] PLATELET COUNT 166 10e9/L 05/02/2018 CBC [id number] Mean Plt Volume 11.6 fL 05/02/2018 CBC 5192957 Neut Auto 48.6 % 05/02/2018 CBC 3859952 Lymph Auto 41.7 % 05/02/2018 CBC 3946344 [place] Auto 8.1 % 05/02/2018 CBC 6293497 RDW 13.1 % 05/02/2018 CBC 8891541 Eos Auto 1.1 % 05/02/2018 CBC [id number] Baso Auto 0.5 % 05/02/2018 CBC 5081288 Neutrophil Abs 3.11 10e9/L 05/02/2018 CBC 7979752 Lymphocyte Abs 2.67 10e9/L 05/02/2018 CBC 3024520 Monocyte Abs 0.52 10e9/L 05/02/2018 CBC [id number] Eosinophil Abs 0.07 10e9/L 05/02/2018 CBC 5132582 RDW-SD 40.0 fL 05/02/2018 CBC 7612730 Basophil Abs 0.03 10e9/L 05/02/2018 CHEM 14 4186461 AST 17 U/L 05/02/2018 CHEM 14 1040790 ALT 17 U/L 05/02/2018 CHEM 14 6244976 BUN 17 mg/dL 05/02/2018 CHEM 14 1774241 ALBUMIN 4.0 g/dL 05/02/2018 CHEM 14 2318710 CHLORIDE 97 mmol/L 05/02/2018 CHEM 14 1213936 Bili Total 0.9 mg/dL 05/02/2018 CHEM 14 2717996 ALK PHOS 67 U/L 05/02/2018 CHEM 14 1088786 SODIUM 135 mmol/L 05/02/2018 CHEM 14 6414668 CREATININE 1.18 mg/dL 05/02/2018 CHEM 14 0690741 CALCIUM 9.4 mg/dL 05/02/2018 CHEM 14 2176490 POTASSIUM 4.4 mmol/L 05/02/2018 CHEM 14 5156285 TOTAL PROTEIN 6.9 g/dL 05/02/2018 CHEM 14 3360838 GLUCOSE 316 mg/dL 05/02/2018 CHEM 14 5782395 Bicarbonate 29 mmol/L 05/02/2018 CHEM 14 3265474 AGAP 9 mmol/L 05/02/2018 MEAN GLUC 8680200 Calc Mean Gluc 283 mg/dL 05/02/2018 A1C HPLC 8241885 Hgb A1c 32048-2 11.5 % 05/02/2018 GFR CALC 6674264 GFR Non Afr Amr >60 mL/min 05/02/2018 GFR CALC 6707037 GFR Afr Amr >60 mL/min 05/02/2018 JIC Gold [id number] JIC Gold Complete 02/28/2018 GFR CALC 6264838 GFR Non Afr Amr >60 mL/min 02/28/2018 GFR CALC 5625667 GFR Afr Amr >60 mL/min 02/28/2018 UA W/CII 0021401 UA Urine Appear Normal 02/28/2018 UA W/CII 2576511 UA Protein 1+ 02/28/2018 UA W/CII 4890617 UA Hemoglobin Negative 02/28/2018 UA W/CII 4217758 UA Glucose 4+ 02/28/2018 UA W/CII 3301686 UA Ketones Trace 02/28/2018 UA W/CII 5478769 UA pH 5.5 02/28/2018 UA W/CII 8711532 U Spec [place] 1.015 02/28/2018 UA W/CII 6022536 UA Bilirubin Negative 02/28/2018 UA W/CII 5684959 UA Nitrite NEG 02/28/2018 UA W/CII 4341521 UA Leuk Esteras Negative 02/28/2018 MICR 7335516 UA WBC/hpf 1 02/28/2018 MICR 5918146 UA RBC hpf 2 02/28/2018 MICR 9009299 UA WBC auto 3.8 /uL 02/28/2018 MICR 6402989 UA RBC auto 12.2 /uL 02/28/2018 MICR 7625217 UA SQ EPI auto 2.3 /uL 02/28/2018 MICR 7388193 UA H Cast auto 0.10 /uL 02/28/2018 CBC 3694966 WBC 6.4 10e9/L 02/28/2018 CBC 0999910 RBC 5.51 10e12/L 02/28/2018 CBC 8230674 HEMOGLOBIN 16.7 g/dL 02/28/2018 CBC [id number] HEMATOCRIT 46.9 % 02/28/2018 CBC 3732016 MCV 85.1 fL 02/28/2018 CBC 3801153 MCH 30.3 pg 02/28/2018 CBC 9564273 MCHC 35.6 g/dL 02/28/2018 CBC 1381576 PLATELET COUNT 173 10e9/L 02/28/2018 CBC 4637773 Mean Plt Volume 11.6 fL 02/28/2018 CBC 1021173 Neut Auto 51.8 % 02/28/2018 CBC 7229745 Lymph Auto 39.9 % 02/28/2018 CBC 6423952 [place] Auto 7.3 % 02/28/2018 CBC 2298603 RDW 13.3 % 02/28/2018 CBC 1338782 Eos Auto 0.8 % 02/28/2018 CBC 0205769 Baso Auto 0.2 % 02/28/2018 CBC 6557743 Neutrophil Abs 3.32 10e9/L 02/28/2018 CBC 0297223 Lymphocyte Abs 2.55 10e9/L 02/28/2018 CBC 8709981 Monocyte Abs 0.47 10e9/L 02/28/2018 CBC 6445754 Eosinophil Abs 0.05 10e9/L 02/28/2018 CBC 5994922 RDW-SD 40.8 fL 02/28/2018 CBC 5678986 Basophil Abs 0.01 10e9/L 02/28/2018 CHEM 14 0217207 AST 17 U/L 02/28/2018 CHEM 14 5227736 ALT 17 U/L 02/28/2018 CHEM 14 9894163 BUN 20 mg/dL 02/28/2018 CHEM 14 2855218 ALBUMIN 4.1 g/dL 02/28/2018 CHEM 14 9560151 CHLORIDE 97 mmol/L 02/28/2018 CHEM 14 2726236 Bili Total 1.3 mg/dL 02/28/2018 CHEM 14 9003921 ALK PHOS 78 U/L 02/28/2018 CHEM 14 2157222 SODIUM 135 mmol/L 02/28/2018 CHEM 14 1270634 CREATININE 1.09 mg/dL 02/28/2018 CHEM 14 0346750 CALCIUM 9.6 mg/dL 02/28/2018 CHEM 14 1838202 POTASSIUM 3.8 mmol/L 02/28/2018 CHEM 14 5838203 TOTAL PROTEIN 7.3 g/dL 02/28/2018 CHEM 14 7276110 GLUCOSE 349 mg/dL 02/28/2018 CHEM 14 7826964 Bicarbonate 29 mmol/L 02/28/2018 CHEM 14 2989177 AGAP 9 mmol/L 02/28/2018 [place] Spotted Fever Igg/Igm 940911 FEI MT SPOTTED FEVER IGM EIA . 09/05/2017 [place] Spotted Fever Igg/Igm 987471 RMSF, IGM 0.17 index 09/05/2017 [place] Spotted Fever Igg/Igm 398138 FEI MT SPOTTED FEVER IGG EIA FLEX . 09/05/2017 [place] Spotted Fever Igg/Igm 125160 RMSF, IGG SCREEN-FLEX Positive 09/05/2017 Fei Mtn Spot'D Fev Igg 028325 RMSF, IGG- TITER IFA <1:64 09/05/2017 Ehrlichia Chaffeensis Antibody Igm 437416 EHRLICHIA CHAFFEENSIS IGM < 1:16 09/03/2017 Ehrlichia Chaffeensis Antibody Igg 566320 EHRLICHIA CHAFFEENSIS IGG <1:64 09/03/2017 Lymes Disease Total Antibodies With Western Blot Reflex B. BURGDORFERI, IGG/IGM 0.223 08/30/2017 Lymes Disease Total Antibodies With Western Blot Reflex 08/30/2017 C-Reactive Protein Qnt Crqnt CRP 0.00 mg/dl 08/27/2017 Sed Rate Ord21 ESR 8 mm/hr 08/27/2017 Comp Metabolic Cyi528 NA 135 mEq/L 08/16/2017 Comp Metabolic Zsr016 K 4.1 mEq/L 08/16/2017 Comp Metabolic Vac130 CL 98 mEq/L 08/16/2017 Comp Metabolic Dre437 CO2 28.0 mEq/L 08/16/2017 Comp Metabolic Vqs778 ANION GAP 13 08/16/2017 Comp Metabolic Tke861 GLUCOSE 299 mg/dL 08/16/2017 Comp Metabolic Vmr392 Creat 0.9 mg/dL 08/16/2017 Comp Metabolic Wco680 eGFR 90 ml/min/1.73m2 08/16/2017 Comp Metabolic Cgf079 BUN 20 mg/dL 08/16/2017 Comp Metabolic Kjt959 B/C Ratio 21.5 Ratio 08/16/2017 Comp Metabolic Nzs970 CALCIUM 9.2 mg/dL 08/16/2017 Comp Metabolic Lok133 ALK PHOS 84 U/L 08/16/2017 Comp Metabolic Gzr044 AST(SGOT) 19 U/L 08/16/2017 Comp Metabolic Vfu511 ALT(SGPT) 24 U/L 08/16/2017 Comp Metabolic Rvj901 BILI T 1.1 mg/dL 08/16/2017 Comp Metabolic Imd454 ALBUMIN 4.2 g/dL 08/16/2017 Comp Metabolic Bvu853 TPRO 7.2 g/dL 08/16/2017 Comp Metabolic Oqu707 GLOB 3.0 g/dL 08/16/2017 Comp Metabolic Iqq677 A/G Ratio 1.4 Ratio 08/16/2017 Comp Metabolic Jql729 Osmo 284 mOsmo 08/16/2017 %Hba1C Hfg089 % HbA1c 59789- 6 12.5 % 08/16/2017 %Hba1C Kpm379 Gluc Ave 312 mg/dL 08/16/2017 Urine Culture Ucult Preliminary NO Growth Day 1 06/23/2017 Urine Culture Ucult Complete NO Growth Day 2 06/23/2017 C RAP A SC [id number] Strep A Negative 06/08/2017 %Hba1C Ryb710 % HbA1c 16732- 6 9.5 % 05/04/2017 %Hba1C Yey421 Gluc Ave 226 mg/dL 05/04/2017 Tsh Ord6 [...] 31.7 pg 05/04/2017 Cbc With Differential Ord2 [place]% 8.5 % 05/04/2017 Cbc With Differential Ord2 [...] 2.48 K/ul 05/04/2017 Cbc With Differential Ord2 [place] ABS# 0.5 K/ul 05/04/2017 Cbc With Differential Ord2 Eos ABS# 0.1 K/ul 05/04/2017 Cbc With Differential Ord2 Baso ABS# 0.0 K/ul 05/04/2017 Comp Metabolic Hef306 NA 135 mEq/L 05/04/2017 Comp Metabolic Epn439 K 4.2 mEq/L 05/04/2017 Comp Metabolic Pkg375 CL 99 mEq/L 05/04/2017 Comp Metabolic Mxg622 CO2 26.0 mEq/L 05/04/2017 Comp Metabolic Ukm783 ANION GAP 14 05/04/2017 Comp Metabolic Mja148 GLUCOSE 277 mg/dL 05/04/2017 Comp Metabolic Sze265 Creat 0.9 mg/dL 05/04/2017 Comp Metabolic Wry424 eGFR 96 ml/min/1.73m2 05/04/2017 Comp Metabolic Sre706 BUN 23 mg/dL 05/04/2017 Comp Metabolic Aai916 B/C Ratio 26.1 Ratio 05/04/2017 Comp Metabolic Xed008 CALCIUM 8.9 mg/dL 05/04/2017 Comp Metabolic Kkm893 ALK PHOS 81 U/L 05/04/2017 Comp Metabolic Ban322 AST(SGOT) 21 U/L 05/04/2017 Comp Metabolic Pac439 ALT(SGPT) 27 U/L 05/04/2017 Comp Metabolic Vmk199 BILI T 1.2 mg/dL 05/04/2017 Comp Metabolic Nmo057 ALBUMIN 4.0 g/dL 05/04/2017 Comp Metabolic Bsh785 TPRO 6.7 g/dL 05/04/2017 Comp Metabolic Ecm675 GLOB 2.7 g/dL 05/04/2017 Comp Metabolic Pic384 A/G Ratio 1.5 Ratio 05/04/2017 Comp Metabolic Oua271 [place] 284 mOsmo 05/04/2017 C A/B FLU [id number] Influenza A Scr Negative 02/16/2017 C A/B FLU [id number] Influenza B Scr Positive 02/16/2017 Cbc With [...] 30.3 pg 05/23/2016 Cbc With Differential Ord2 [place]% 8.8 % 05/23/2016 Cbc With Differential Ord2 [...] 2.07 K/ul 05/23/2016 Cbc With Differential Ord2 [place] ABS# 0.5 K/ul 05/23/2016 Cbc With Differential Ord2 Eos ABS# 0.1 K/ul 05/23/2016 Cbc With Differential Ord2 Baso ABS# 0.0 K/ul 05/23/2016 Lipid Ord30 CHOL 397 mg/dL 05/17/2016 Lipid Ord30 HDL 48.0 mg/dl 05/17/2016 Lipid Ord30 TRIG 578 mg/dL 05/17/2016 Lipid Ord30 LDL Unable to calculate Due to elevated triglycerides mg/dL 05/17/2016 Lipid Ord30 C/HDL 8.3 Ratio 05/17/2016 %Hba1C Xsj021 % HbA1c 72501- 6 12.4 % 05/16/2016 %Hba1C Vyr893 Gluc Ave 309 mg/dL 05/16/2016 Cbc With [...] 30.4 pg 05/15/2016 Cbc With Differential Ord2 [place]% 7.8 % 05/15/2016 Cbc With Differential Ord2 [...] 2.04 K/ul 05/15/2016 Cbc With Differential Ord2 [place] ABS# 0.5 K/ul 05/15/2016 Cbc With Differential Ord2 Eos ABS# 0.1 K/ul 05/15/2016 Cbc With Differential Ord2 Baso ABS# 0.0 K/ul 05/15/2016 Tsh Ord6 hTSH II 1.70 uIU/mL 05/15/2016 Comp Metabolic Ixf955 NA 135 mEq/L 05/15/2016 Comp Metabolic Vgl223 K 3.9 mEq/L 05/15/2016 Comp Metabolic Usk003 CL 96 mEq/L 05/15/2016 Comp Metabolic Znk806 CO2 27.0 mEq/L 05/15/2016 Comp Metabolic Wph741 ANION GAP 16 05/15/2016 Comp Metabolic Gjs931 GLUCOSE 183 mg/dL 05/15/2016 Comp Metabolic Scf559 Creat 1.1 mg/dL 05/15/2016 Comp Metabolic Owo446 eGFR 71 ml/min/1.73m2 05/15/2016 Comp Metabolic Fye274 BUN 17 mg/dL 05/15/2016 Comp Metabolic Wyh033 B/C Ratio 14.9 Ratio 05/15/2016 Comp Metabolic Msf482 CALCIUM 9.6 mg/dL 05/15/2016 Comp Metabolic Fwr342 ALK PHOS 100 U/L 05/15/2016 Comp Metabolic Ksj645 AST(SGOT) 20 U/L 05/15/2016 Comp Metabolic Obk884 ALT(SGPT) 20 U/L 05/15/2016 Comp Metabolic Sru272 BILI T 1.3 mg/dL 05/15/2016 Comp Metabolic Klm106 ALBUMIN 4.6 g/dL 05/15/2016 Comp Metabolic Sdf260 TPRO 8.1 g/dL 05/15/2016 Comp Metabolic Uez922 GLOB 3.5 g/dL 05/15/2016 Comp Metabolic Rnf002 A/G Ratio 1.3 Ratio 05/15/2016 Comp Metabolic Kon986 [place]sm[place] 276 mOsmo 05/15/2016 Review of Systems System Result Effective Dates Constitutional recent illness 04/03/2019 Constitutional No fatigue 04/03/2019 Musculoskeletal joint complaint 04/03/2019 Musculoskeletal stiffness 04/03/2019 Musculoskeletal swelling 04/03/2019 Cardiovascular hypertension 04/03/2019 Cardiovascular fatigue 04/03/2019 Neurologic headache 04/03/2019 Musculoskeletal neck pain 04/03/2019 Respiratory No cough 04/03/2019 Respiratory No chest congestion 04/03/2019 Endocrine diabetes mellitus type 2 04/03/2019 Constitutional No recent illness 03/07/2019 Constitutional No anorexia 03/07/2019 Constitutional No night sweats 03/07/2019 Constitutional No chills 03/07/2019 Constitutional No diaphoresis 03/07/2019 Constitutional fatigue 03/07/2019 Constitutional No fever 03/07/2019 Constitutional No insomnia 03/07/2019 Constitutional No malaise 03/07/2019 Constitutional No weight loss 03/07/2019 Constitutional No weight gain 03/07/2019 Eyes No eye discharge 03/07/2019 Eyes No eye erythema 03/07/2019 Ears/Nose/Throat/Neck dizziness 03/07/2019 Ears/Nose/Throat/Neck headache 03/07/2019 Cardiovascular No chest pain/pressure 03/07/2019 Cardiovascular No dyspnea 03/07/2019 Cardiovascular No edema 03/07/2019 Respiratory No cough 03/07/2019 Gastrointestinal No abdominal pain 03/07/2019 Gastrointestinal No constipation 03/07/2019 Gastrointestinal No diarrhea 03/07/2019 Genitourinary/Nephrology No dysuria 03/07/2019 Musculoskeletal No joint complaint 03/07/2019 Dermatologic No rash 03/07/2019 Neurologic No alteration of consciousness 03/07/2019 Psychiatric No depression 03/07/2019 Endocrine No dry or coarse skin 03/07/2019 Neurologic tinnitus 03/07/2019 Ears/Nose/Throat/Neck nasal allergies 03/07/2019 Constitutional recent illness 02/27/2019 Constitutional No anorexia 02/27/2019 Constitutional No night sweats 02/27/2019 Constitutional No chills 02/27/2019 Constitutional No diaphoresis 02/27/2019 Constitutional No fatigue 02/27/2019 Constitutional No fever 02/27/2019 Constitutional No insomnia 02/27/2019 Constitutional No malaise 02/27/2019 Constitutional No weight loss 02/27/2019 Constitutional No weight gain 02/27/2019 Eyes No eye discharge 02/27/2019 Eyes No eye erythema 02/27/2019 Ears/Nose/Throat/Neck dizziness 02/27/2019 Ears/Nose/Throat/Neck No headache 02/27/2019 Cardiovascular No chest pain/pressure 02/27/2019 Respiratory No cough 02/27/2019 Gastrointestinal No abdominal pain 02/27/2019 Gastrointestinal No nausea 02/27/2019 Gastrointestinal No vomiting 02/27/2019 Genitourinary/Nephrology No dysuria 02/27/2019 Musculoskeletal joint complaint 02/27/2019 Dermatologic No rash 02/27/2019 Neurologic No alteration of consciousness 02/27/2019 Neurologic dizziness 02/27/2019 Psychiatric anxiety 02/27/2019 Constitutional recent illness 02/17/2019 Constitutional No anorexia 02/17/2019 Constitutional No night sweats 02/17/2019 Constitutional No chills 02/17/2019 Constitutional No diaphoresis 02/17/2019 Constitutional fatigue 02/17/2019 Constitutional No fever 02/17/2019 Constitutional No insomnia 02/17/2019 Constitutional malaise 02/17/2019 Constitutional No weight loss 02/17/2019 Constitutional No weight gain 02/17/2019 Eyes No eye discharge 02/17/2019 Eyes No eye erythema 02/17/2019 Ears/Nose/Throat/Neck dizziness 02/17/2019 Ears/Nose/Throat/Neck No headache 02/17/2019 Cardiovascular No chest pain/pressure 02/17/2019 Respiratory No cough 02/17/2019 Gastrointestinal No abdominal pain 02/17/2019 Gastrointestinal No vomiting 02/17/2019 Gastrointestinal No nausea 02/17/2019 Genitourinary/Nephrology No dysuria 02/17/2019 Musculoskeletal joint complaint 02/17/2019 Dermatologic No rash 02/17/2019 Neurologic No alteration of consciousness 02/17/2019 Neurologic dizziness 02/17/2019 Constitutional No recent illness 01/13/2019 Constitutional No anorexia 01/13/2019 Constitutional No night sweats 01/13/2019 Constitutional No chills 01/13/2019 Constitutional No diaphoresis 01/13/2019 Constitutional fatigue 01/13/2019 Constitutional No fever 01/13/2019 Constitutional No insomnia 01/13/2019 Constitutional No malaise 01/13/2019 Constitutional No weight loss 01/13/2019 Constitutional No weight gain 01/13/2019 Eyes No eye discharge 01/13/2019 Eyes No eye erythema 01/13/2019 Ears/Nose/Throat/Neck No dizziness 01/13/2019 Ears/Nose/Throat/Neck No headache 01/13/2019 Cardiovascular No chest pain/pressure 01/13/2019 Cardiovascular No dyspnea 01/13/2019 Respiratory No cough 01/13/2019 Gastrointestinal No abdominal pain 01/13/2019 Gastrointestinal No constipation 01/13/2019 Gastrointestinal No diarrhea 01/13/2019 Genitourinary/Nephrology No dysuria 01/13/2019 Dermatologic No rash 01/13/2019 Neurologic No alteration of consciousness 01/13/2019 Psychiatric No depression 01/13/2019 Endocrine No dry or coarse skin 01/13/2019 Musculoskeletal No joint complaint 01/13/2019 Cardiovascular No edema 01/13/2019 Constitutional recent illness 12/31/2018 Constitutional anorexia 12/31/2018 Constitutional No night sweats 12/31/2018 Constitutional chills 12/31/2018 Constitutional No diaphoresis 12/31/2018 Constitutional fatigue 12/31/2018 Constitutional No fever 12/31/2018 Constitutional No insomnia 12/31/2018 Constitutional No malaise 12/31/2018 Constitutional No weight loss 12/31/2018 Constitutional No weight gain 12/31/2018 Eyes No eye erythema 12/31/2018 Eyes No eye discharge 12/31/2018 Ears/Nose/Throat/Neck dizziness 12/31/2018 Ears/Nose/Throat/Neck headache 12/31/2018 Ears/Nose/Throat/Neck No nasal discharge 12/31/2018 Ears/Nose/Throat/Neck No otalgia 12/31/2018 Ears/Nose/Throat/Neck No sinus congestion 12/31/2018 Ears/Nose/Throat/Neck No sore throat 12/31/2018 Cardiovascular chest pain/pressure 12/31/2018 Cardiovascular No edema 12/31/2018 Respiratory cough 12/31/2018 Respiratory No productive sputum 12/31/2018 Gastrointestinal No abdominal pain 12/31/2018 Gastrointestinal No constipation 12/31/2018 Gastrointestinal No diarrhea 12/31/2018 Genitourinary/Nephrology No dysuria 12/31/2018 Musculoskeletal joint complaint 12/31/2018 Dermatologic No rash 12/31/2018 Neurologic No alteration of consciousness 12/31/2018 Psychiatric anxiety 12/31/2018 Endocrine diabetes mellitus type 2 12/31/2018 Constitutional No recent illness 12/26/2018 Constitutional No chills 12/26/2018 Constitutional No diaphoresis 12/26/2018 Constitutional No fever 12/26/2018 Eyes No eye erythema 12/26/2018 Ears/Nose/Throat/Neck No nasal discharge 12/26/2018 Cardiovascular chest pain/pressure 12/26/2018 Cardiovascular No dyspnea 12/26/2018 Respiratory cough 12/26/2018 Respiratory No dyspnea 12/26/2018 Respiratory chest congestion 12/26/2018 Gastrointestinal No abdominal pain 12/26/2018 Neurologic No alteration of consciousness 12/26/2018 Neurologic No mental status change 12/26/2018 Constitutional recent illness 11/18/2018 Constitutional No anorexia 11/18/2018 Constitutional No night sweats 11/18/2018 Constitutional No chills 11/18/2018 Constitutional No diaphoresis 11/18/2018 Constitutional fatigue 11/18/2018 Constitutional No fever 11/18/2018 Constitutional insomnia 11/18/2018 Constitutional No malaise 11/18/2018 Eyes No eye discharge 11/18/2018 Eyes No eye erythema 11/18/2018 Ears/Nose/Throat/Neck No dizziness 11/18/2018 Ears/Nose/Throat/Neck headache 11/18/2018 Ears/Nose/Throat/Neck nasal discharge 11/18/2018 Ears/Nose/Throat/Neck No otalgia 11/18/2018 Ears/Nose/Throat/Neck sinus congestion 11/18/2018 Ears/Nose/Throat/Neck No sore throat 11/18/2018 Cardiovascular No chest pain/pressure 11/18/2018 Cardiovascular dyspnea 11/18/2018 Cardiovascular No edema 11/18/2018 Respiratory productive sputum 11/18/2018 Respiratory cough 11/18/2018 Musculoskeletal joint complaint 11/18/2018 Neurologic No alteration of consciousness 11/18/2018 Constitutional recent illness 11/12/2018 Constitutional No anorexia 11/12/2018 Constitutional No night sweats 11/12/2018 Constitutional No chills 11/12/2018 Constitutional No diaphoresis 11/12/2018 Constitutional fatigue 11/12/2018 Constitutional No fever 11/12/2018 Constitutional insomnia 11/12/2018 Constitutional No malaise 11/12/2018 Eyes No eye discharge 11/12/2018 Eyes No eye erythema 11/12/2018 Ears/Nose/Throat/Neck No dizziness 11/12/2018 Ears/Nose/Throat/Neck headache 11/12/2018 Ears/Nose/Throat/Neck nasal discharge 11/12/2018 Ears/Nose/Throat/Neck No sore throat 11/12/2018 Ears/Nose/Throat/Neck No otalgia 11/12/2018 Ears/Nose/Throat/Neck sinus congestion 11/12/2018 Cardiovascular No chest pain/pressure 11/12/2018 Cardiovascular No dyspnea 11/12/2018 Cardiovascular No edema 11/12/2018 Respiratory productive sputum 11/12/2018 Respiratory cough 11/12/2018 Gastrointestinal No nausea 11/12/2018 Gastrointestinal No vomiting 11/12/2018 Genitourinary/Nephrology No dysuria 11/12/2018 Musculoskeletal joint complaint 11/12/2018 Dermatologic No rash 11/12/2018 Neurologic No alteration of consciousness 11/12/2018 Endocrine No dry or coarse skin 11/12/2018 Constitutional recent illness 10/30/2018 Constitutional No anorexia 10/30/2018 Constitutional No night sweats 10/30/2018 Constitutional No chills 10/30/2018 Constitutional No diaphoresis 10/30/2018 Constitutional fatigue 10/30/2018 Constitutional No fever 10/30/2018 Constitutional insomnia 10/30/2018 Constitutional No malaise 10/30/2018 Eyes No eye discharge 10/30/2018 Eyes No eye erythema 10/30/2018 Ears/Nose/Throat/Neck No dizziness 10/30/2018 Ears/Nose/Throat/Neck headache 10/30/2018 Ears/Nose/Throat/Neck nasal discharge 10/30/2018 Ears/Nose/Throat/Neck No otalgia 10/30/2018 Ears/Nose/Throat/Neck sinus congestion 10/30/2018 Ears/Nose/Throat/Neck No sore throat 10/30/2018 Cardiovascular No chest pain/pressure 10/30/2018 Cardiovascular No dyspnea 10/30/2018 Cardiovascular No edema 10/30/2018 Respiratory productive sputum 10/30/2018 Respiratory cough 10/30/2018 Gastrointestinal No nausea 10/30/2018 Gastrointestinal No vomiting 10/30/2018 Genitourinary/Nephrology No dysuria 10/30/2018 Musculoskeletal joint complaint 10/30/2018 Dermatologic No rash 10/30/2018 Neurologic No alteration of consciousness 10/30/2018 Endocrine No dry or coarse skin 10/30/2018 Constitutional recent illness 10/24/2018 Constitutional No anorexia 10/24/2018 Constitutional No night sweats 10/24/2018 Constitutional No chills 10/24/2018 Constitutional No diaphoresis 10/24/2018 Constitutional fatigue 10/24/2018 Constitutional No fever 10/24/2018 Constitutional No insomnia 10/24/2018 Constitutional No malaise 10/24/2018 Constitutional No weight loss 10/24/2018 Constitutional No weight gain 10/24/2018 Musculoskeletal joint complaint 10/24/2018 Constitutional recent illness 10/23/2018 Constitutional anorexia 10/23/2018 Constitutional No night sweats 10/23/2018 Constitutional No chills 10/23/2018 Constitutional No diaphoresis 10/23/2018 Constitutional fatigue 10/23/2018 Constitutional No fever 10/23/2018 Constitutional No insomnia 10/23/2018 Constitutional No malaise 10/23/2018 Eyes No eye discharge 10/23/2018 Eyes No eye erythema 10/23/2018 Ears/Nose/Throat/Neck No dizziness 10/23/2018 Cardiovascular No chest pain/pressure 10/23/2018 Respiratory cough 10/23/2018 Gastrointestinal No constipation 10/23/2018 Gastrointestinal No diarrhea 10/23/2018 Gastrointestinal nausea 10/23/2018 Genitourinary/Nephrology No dysuria 10/23/2018 Musculoskeletal joint complaint 10/23/2018 Dermatologic erythema 10/23/2018 Neurologic No alteration of consciousness 10/23/2018 Psychiatric anxiety 10/23/2018 Constitutional recent illness 10/21/2018 Constitutional anorexia 10/21/2018 Constitutional No night sweats 10/21/2018 Constitutional No chills 10/21/2018 Constitutional No diaphoresis 10/21/2018 Constitutional fatigue 10/21/2018 Constitutional No fever 10/21/2018 Constitutional No insomnia 10/21/2018 Constitutional No malaise 10/21/2018 Constitutional No weight loss 10/21/2018 Constitutional No weight gain 10/21/2018 Eyes No eye discharge 10/21/2018 Eyes No eye erythema 10/21/2018 Ears/Nose/Throat/Neck No dizziness 10/21/2018 Cardiovascular No chest pain/pressure 10/21/2018 Respiratory cough 10/21/2018 Gastrointestinal No constipation 10/21/2018 Gastrointestinal No diarrhea 10/21/2018 Gastrointestinal nausea 10/21/2018 Genitourinary/Nephrology No dysuria 10/21/2018 Musculoskeletal joint complaint 10/21/2018 Dermatologic sores 10/21/2018 Dermatologic erythema 10/21/2018 Neurologic No alteration of consciousness 10/21/2018 Psychiatric anxiety 10/21/2018 Constitutional No recent illness 10/17/2018 Constitutional No chills 10/17/2018 Constitutional No diaphoresis 10/17/2018 Constitutional No fever 10/17/2018 Eyes No eye erythema 10/17/2018 Ears/Nose/Throat/Neck No nasal discharge 10/17/2018 Cardiovascular No chest pain/pressure 10/17/2018 Respiratory No cough 10/17/2018 Neurologic No alteration of consciousness 10/17/2018 Neurologic No mental status change 10/17/2018 Dermatologic ecchymosis 10/17/2018 Constitutional recent illness 10/14/2018 Constitutional No anorexia 10/14/2018 Constitutional No night sweats 10/14/2018 Constitutional No chills 10/14/2018 Constitutional No diaphoresis 10/14/2018 Constitutional fatigue 10/14/2018 Constitutional No fever 10/14/2018 Constitutional insomnia 10/14/2018 Constitutional No malaise 10/14/2018 Constitutional No weight loss 10/14/2018 Eyes No eye discharge 10/14/2018 Eyes No eye erythema 10/14/2018 Ears/Nose/Throat/Neck No dizziness 10/14/2018 Ears/Nose/Throat/Neck headache 10/14/2018 Ears/Nose/Throat/Neck nasal discharge 10/14/2018 Ears/Nose/Throat/Neck No otalgia 10/14/2018 Ears/Nose/Throat/Neck sinus congestion 10/14/2018 Ears/Nose/Throat/Neck No sore throat 10/14/2018 Cardiovascular No chest pain/pressure 10/14/2018 Cardiovascular No dyspnea 10/14/2018 Cardiovascular No edema 10/14/2018 Respiratory No productive sputum 10/14/2018 Respiratory cough 10/14/2018 Gastrointestinal No nausea 10/14/2018 Gastrointestinal No vomiting 10/14/2018 Genitourinary/Nephrology No dysuria 10/14/2018 Musculoskeletal joint complaint 10/14/2018 Dermatologic No rash 10/14/2018 Neurologic No alteration of consciousness 10/14/2018 Endocrine No dry or coarse skin 10/14/2018 Constitutional recent illness 09/30/2018 Constitutional No chills 09/30/2018 Constitutional No diaphoresis 09/30/2018 Constitutional fatigue 09/30/2018 Constitutional No fever 09/30/2018 Eyes No eye discharge 09/30/2018 Eyes No eye erythema 09/30/2018 Ears/Nose/Throat/Neck No dizziness 09/30/2018 Ears/Nose/Throat/Neck headache 09/30/2018 Ears/Nose/Throat/Neck nasal discharge 09/30/2018 Ears/Nose/Throat/Neck No otalgia 09/30/2018 Ears/Nose/Throat/Neck sinus congestion 09/30/2018 Ears/Nose/Throat/Neck sore throat 09/30/2018 Cardiovascular No chest pain/pressure 09/30/2018 Cardiovascular No dyspnea 09/30/2018 Cardiovascular No edema 09/30/2018 Respiratory productive sputum 09/30/2018 Respiratory cough 09/30/2018 Gastrointestinal No nausea 09/30/2018 Gastrointestinal No vomiting 09/30/2018 Neurologic No alteration of consciousness 09/30/2018 Constitutional No malaise 09/30/2018 Respiratory No dyspnea 09/30/2018 Respiratory chest congestion 09/30/2018 Neurologic No mental status change 09/30/2018 Constitutional recent illness 09/09/2018 Constitutional No anorexia 09/09/2018 Constitutional No night sweats 09/09/2018 Constitutional No chills 09/09/2018 Constitutional No diaphoresis 09/09/2018 Constitutional fatigue 09/09/2018 Constitutional insomnia 09/09/2018 Constitutional No fever 09/09/2018 Constitutional No weight loss 09/09/2018 Constitutional weight gain 09/09/2018 Constitutional No malaise 09/09/2018 Eyes No eye discharge 09/09/2018 Eyes No eye erythema 09/09/2018 Ears/Nose/Throat/Neck No dizziness 09/09/2018 Ears/Nose/Throat/Neck headache 09/09/2018 Ears/Nose/Throat/Neck nasal discharge 09/09/2018 Ears/Nose/Throat/Neck No otalgia 09/09/2018 Ears/Nose/Throat/Neck sinus congestion 09/09/2018 Ears/Nose/Throat/Neck No sore throat 09/09/2018 Cardiovascular No chest pain/pressure 09/09/2018 Cardiovascular No dyspnea 09/09/2018 Cardiovascular No edema 09/09/2018 Respiratory No productive sputum 09/09/2018 Respiratory cough 09/09/2018 Gastrointestinal No vomiting 09/09/2018 Gastrointestinal No nausea 09/09/2018 Genitourinary/Nephrology No dysuria 09/09/2018 Musculoskeletal joint complaint 09/09/2018 Dermatologic No rash 09/09/2018 Dermatologic sores 09/09/2018 Neurologic No alteration of consciousness 09/09/2018 Endocrine No dry or coarse skin 09/09/2018 Constitutional No recent illness 07/22/2018 Constitutional No anorexia 07/22/2018 Constitutional No night sweats 07/22/2018 Constitutional No chills 07/22/2018 Constitutional No diaphoresis 07/22/2018 Constitutional No fatigue 07/22/2018 Constitutional No fever 07/22/2018 Constitutional No insomnia 07/22/2018 Constitutional No malaise 07/22/2018 Constitutional No weight loss 07/22/2018 Constitutional No weight gain 07/22/2018 Eyes No eye discharge 07/22/2018 Eyes No eye erythema 07/22/2018 Ears/Nose/Throat/Neck No dizziness 07/22/2018 Ears/Nose/Throat/Neck No headache 07/22/2018 Cardiovascular No chest pain/pressure 07/22/2018 Cardiovascular No dyspnea 07/22/2018 Respiratory No cough 07/22/2018 Gastrointestinal No abdominal pain 07/22/2018 Gastrointestinal No constipation 07/22/2018 Gastrointestinal No diarrhea 07/22/2018 Genitourinary/Nephrology No dysuria 07/22/2018 Dermatologic No rash 07/22/2018 Neurologic No alteration of consciousness 07/22/2018 Psychiatric No depression 07/22/2018 Endocrine No dry or coarse skin 07/22/2018 Constitutional No recent illness 07/16/2018 Constitutional No anorexia 07/16/2018 Constitutional No night sweats 07/16/2018 Constitutional No chills 07/16/2018 Constitutional No diaphoresis 07/16/2018 Constitutional No fatigue 07/16/2018 Constitutional No fever 07/16/2018 Constitutional insomnia 07/16/2018 Constitutional No malaise 07/16/2018 Constitutional No weight loss 07/16/2018 Eyes No eye discharge 07/16/2018 Eyes No eye erythema 07/16/2018 Ears/Nose/Throat/Neck No headache 07/16/2018 Cardiovascular No chest pain/pressure 07/16/2018 Cardiovascular No dyspnea 07/16/2018 Cardiovascular No edema 07/16/2018 Respiratory No productive sputum 07/16/2018 Respiratory No cough 07/16/2018 Gastrointestinal No abdominal pain 07/16/2018 Gastrointestinal No constipation 07/16/2018 Gastrointestinal No diarrhea 07/16/2018 Genitourinary/Nephrology No dysuria 07/16/2018 Musculoskeletal No joint complaint 07/16/2018 Dermatologic No rash 07/16/2018 Neurologic No alteration of consciousness 07/16/2018 Psychiatric No depression 07/16/2018 Constitutional No weight gain 07/16/2018 Ears/Nose/Throat/Neck No dizziness 07/16/2018 Dermatologic No sores 07/16/2018 Constitutional recent illness 07/01/2018 Constitutional No chills 07/01/2018 Constitutional No diaphoresis 07/01/2018 Constitutional No fever 07/01/2018 Respiratory cough 07/01/2018 Respiratory No chest congestion 07/01/2018 Constitutional recent illness 06/28/2018 Constitutional chills 06/28/2018 Constitutional diaphoresis 06/28/2018 Constitutional fever 06/28/2018 Eyes No eye erythema 06/28/2018 Ears/Nose/Throat/Neck nasal allergies 06/28/2018 Ears/Nose/Throat/Neck nasal discharge 06/28/2018 Ears/Nose/Throat/Neck postnasal drip 06/28/2018 Ears/Nose/Throat/Neck No sinus congestion 06/28/2018 Ears/Nose/Throat/Neck No sore throat 06/28/2018 Cardiovascular No chest pain/pressure 06/28/2018 Respiratory chest congestion 06/28/2018 Respiratory dyspnea on exertion 06/28/2018 Respiratory No productive sputum 06/28/2018 Gastrointestinal No abdominal pain 06/28/2018 Neurologic No alteration of consciousness 06/28/2018 Neurologic No mental status change 06/28/2018 Constitutional recent illness 06/18/2018 Constitutional No anorexia 06/18/2018 Constitutional No night sweats 06/18/2018 Constitutional No chills 06/18/2018 Constitutional No diaphoresis 06/18/2018 Constitutional No fatigue 06/18/2018 Constitutional No fever 06/18/2018 Constitutional No insomnia 06/18/2018 Constitutional No malaise 06/18/2018 Eyes No eye discharge 06/18/2018 Eyes No eye erythema 06/18/2018 Ears/Nose/Throat/Neck dizziness 06/18/2018 Ears/Nose/Throat/Neck No headache 06/18/2018 Cardiovascular No chest pain/pressure 06/18/2018 Cardiovascular No dyspnea 06/18/2018 Cardiovascular No edema 06/18/2018 Respiratory No productive sputum 06/18/2018 Respiratory No cough 06/18/2018 Gastrointestinal No abdominal pain 06/18/2018 Gastrointestinal No constipation 06/18/2018 Genitourinary/Nephrology No dysuria 06/18/2018 Musculoskeletal No joint complaint 06/18/2018 Musculoskeletal muscle weakness 06/18/2018 Musculoskeletal myalgias 06/18/2018 Dermatologic No rash 06/18/2018 Dermatologic sores 06/18/2018 Neurologic No alteration of consciousness 06/18/2018 Psychiatric No depression 06/18/2018 Constitutional weight loss 06/18/2018 Gastrointestinal No diarrhea 06/18/2018 Constitutional recent illness 06/04/2018 Constitutional chills 06/04/2018 Constitutional diaphoresis 06/04/2018 Constitutional fatigue 06/04/2018 Constitutional No fever 06/04/2018 Constitutional No insomnia 06/04/2018 Eyes No eye discharge 06/04/2018 Eyes No eye erythema 06/04/2018 Ears/Nose/Throat/Neck dizziness 06/04/2018 Ears/Nose/Throat/Neck No headache 06/04/2018 Cardiovascular No chest pain/pressure 06/04/2018 Cardiovascular No dyspnea 06/04/2018 Cardiovascular edema 06/04/2018 Respiratory No productive sputum 06/04/2018 Respiratory cough 06/04/2018 Gastrointestinal No abdominal pain 06/04/2018 Gastrointestinal No constipation 06/04/2018 Gastrointestinal No diarrhea 06/04/2018 Gastrointestinal No nausea 06/04/2018 Gastrointestinal No vomiting 06/04/2018 Musculoskeletal No joint complaint 06/04/2018 Musculoskeletal myalgias 06/04/2018 Dermatologic No rash 06/04/2018 Neurologic No alteration of consciousness 06/04/2018 Psychiatric depression 06/04/2018 Constitutional weight gain 06/04/2018 Cardiovascular exercise intolerance 06/04/2018 Cardiovascular fatigue 06/04/2018 Dermatologic sores 06/04/2018 Constitutional night sweats 05/13/2018 Constitutional fatigue 05/13/2018 Constitutional insomnia 05/13/2018 Constitutional malaise 05/13/2018 Eyes photophobia 05/13/2018 Ears/Nose/Throat/Neck dizziness 05/13/2018 Ears/Nose/Throat/Neck neck pain 05/13/2018 Cardiovascular No chest pain/pressure 05/13/2018 Cardiovascular No dyspnea 05/13/2018 Cardiovascular No edema 05/13/2018 Respiratory No cough 05/13/2018 Gastrointestinal No abdominal pain 05/13/2018 Gastrointestinal No vomiting 05/13/2018 Genitourinary/Nephrology No dysuria 05/13/2018 Musculoskeletal arthralgia(s) 05/13/2018 Musculoskeletal muscle weakness 05/13/2018 Musculoskeletal myalgias 05/13/2018 Dermatologic No rash 05/13/2018 Neurologic neck pain 05/13/2018 Neurologic weakness 05/13/2018 Psychiatric anxiety 05/13/2018 Psychiatric depression 05/13/2018 Constitutional fatigue 05/02/2018 Constitutional insomnia 05/02/2018 Constitutional malaise 05/02/2018 Eyes photophobia 05/02/2018 Ears/Nose/Throat/Neck neck pain 05/02/2018 Constitutional night sweats 05/02/2018 Musculoskeletal arthralgia(s) 05/02/2018 Musculoskeletal muscle weakness 05/02/2018 Musculoskeletal myalgias 05/02/2018 Neurologic neck pain 05/02/2018 Neurologic weakness 05/02/2018 Ears/Nose/Throat/Neck dizziness 05/02/2018 Cardiovascular No chest pain/pressure 05/02/2018 Cardiovascular No dyspnea 05/02/2018 Cardiovascular No edema 05/02/2018 Respiratory No cough 05/02/2018 Gastrointestinal No abdominal pain 05/02/2018 Gastrointestinal No vomiting 05/02/2018 Genitourinary/Nephrology No dysuria 05/02/2018 Dermatologic No rash 05/02/2018 Psychiatric depression 05/02/2018 [...] Eyes No eye erythema 04/29/2018 Ears/Nose/Throat/Neck dizziness 04/29/2018 Ears/Nose/Throat/Neck No headache 04/29/2018 Cardiovascular No chest pain/pressure 04/29/2018 Cardiovascular No dyspnea 04/29/2018 Cardiovascular No edema 04/29/2018 Respiratory No productive sputum 04/29/2018 Respiratory No cough 04/29/2018 Gastrointestinal No abdominal pain 04/29/2018 Gastrointestinal No constipation 04/29/2018 Gastrointestinal diarrhea 04/29/2018 Gastrointestinal No nausea 04/29/2018 Gastrointestinal No vomiting 04/29/2018 Genitourinary/Nephrology No dysuria 04/29/2018 Musculoskeletal No joint complaint 04/29/2018 Musculoskeletal myalgias 04/29/2018 Dermatologic No rash 04/29/2018 Dermatologic sores 04/29/2018 Neurologic No alteration of consciousness 04/29/2018 Psychiatric depression 04/29/2018 Musculoskeletal muscle weakness 04/29/2018 Constitutional recent illness 03/13/2018 Constitutional No anorexia 03/13/2018 Constitutional No night sweats 03/13/2018 Constitutional chills 03/13/2018 Constitutional diaphoresis 03/13/2018 Constitutional fatigue 03/13/2018 Constitutional No fever 03/13/2018 Constitutional No insomnia 03/13/2018 Constitutional No malaise 03/13/2018 Constitutional No weight loss 03/13/2018 Constitutional No weight gain 03/13/2018 Eyes No eye discharge 03/13/2018 Eyes No eye erythema 03/13/2018 Ears/Nose/Throat/Neck dizziness 03/13/2018 Ears/Nose/Throat/Neck No headache 03/13/2018 Cardiovascular No chest pain/pressure 03/13/2018 Cardiovascular No dyspnea 03/13/2018 Cardiovascular No edema 03/13/2018 Respiratory No productive sputum 03/13/2018 Respiratory No cough 03/13/2018 Gastrointestinal No abdominal pain 03/13/2018 Gastrointestinal No constipation 03/13/2018 Gastrointestinal No diarrhea 03/13/2018 Gastrointestinal No nausea 03/13/2018 Gastrointestinal No vomiting 03/13/2018 Genitourinary/Nephrology No dysuria 03/13/2018 Musculoskeletal No joint complaint 03/13/2018 Musculoskeletal myalgias 03/13/2018 Dermatologic No rash 03/13/2018 Dermatologic sores 03/13/2018 Neurologic No alteration of consciousness 03/13/2018 Psychiatric depression 03/13/2018 Constitutional recent illness 03/07/2018 Constitutional No anorexia 03/07/2018 Constitutional No night sweats 03/07/2018 Constitutional chills 03/07/2018 Constitutional diaphoresis 03/07/2018 Constitutional fatigue 03/07/2018 Constitutional No fever 03/07/2018 Constitutional No insomnia 03/07/2018 Constitutional No malaise 03/07/2018 Constitutional No weight loss 03/07/2018 Constitutional No weight gain 03/07/2018 Eyes No eye discharge 03/07/2018 Eyes No eye erythema 03/07/2018 Ears/Nose/Throat/Neck dizziness 03/07/2018 Ears/Nose/Throat/Neck No headache 03/07/2018 Cardiovascular No chest pain/pressure 03/07/2018 Cardiovascular No dyspnea 03/07/2018 Cardiovascular No edema 03/07/2018 Respiratory No productive sputum 03/07/2018 Respiratory No cough 03/07/2018 Gastrointestinal No abdominal pain 03/07/2018 Gastrointestinal No constipation 03/07/2018 Gastrointestinal No diarrhea 03/07/2018 Gastrointestinal No nausea 03/07/2018 Gastrointestinal No vomiting 03/07/2018 Genitourinary/Nephrology No dysuria 03/07/2018 Musculoskeletal No joint complaint 03/07/2018 Musculoskeletal myalgias 03/07/2018 Dermatologic No rash 03/07/2018 Dermatologic sores 03/07/2018 Neurologic No alteration of consciousness 03/07/2018 Psychiatric depression 03/07/2018 Endocrine No dry or coarse skin 03/07/2018 Endocrine weakness 03/07/2018 Hematologic/Lymphatic No abnormal ecchymoses 03/07/2018 Constitutional recent illness 02/28/2018 Constitutional fatigue 02/28/2018 Constitutional No fever 02/28/2018 Constitutional No insomnia 02/28/2018 Constitutional No malaise 02/28/2018 Constitutional No weight loss 02/28/2018 Constitutional No weight gain 02/28/2018 Constitutional chills 02/28/2018 Constitutional No night sweats 02/28/2018 Constitutional No anorexia 02/28/2018 Constitutional diaphoresis 02/28/2018 Eyes No eye erythema 02/28/2018 Eyes No eye discharge 02/28/2018 Ears/Nose/Throat/Neck dizziness 02/28/2018 Ears/Nose/Throat/Neck No headache 02/28/2018 Cardiovascular No chest pain/pressure 02/28/2018 Cardiovascular No edema 02/28/2018 Cardiovascular No dyspnea 02/28/2018 Respiratory No cough 02/28/2018 Respiratory No productive sputum 02/28/2018 Gastrointestinal No constipation 02/28/2018 Gastrointestinal No diarrhea 02/28/2018 Gastrointestinal No abdominal pain 02/28/2018 Gastrointestinal No nausea 02/28/2018 Gastrointestinal No vomiting 02/28/2018 Genitourinary/Nephrology No dysuria 02/28/2018 Musculoskeletal No joint complaint 02/28/2018 Musculoskeletal myalgias 02/28/2018 Dermatologic No rash 02/28/2018 Dermatologic sores 02/28/2018 Neurologic No alteration of consciousness 02/28/2018 Psychiatric depression 02/28/2018 Endocrine No dry or coarse skin 02/28/2018 Endocrine weakness 02/28/2018 Hematologic/Lymphatic No abnormal ecchymoses 02/28/2018 Constitutional anorexia 02/13/2018 Constitutional No chills 02/13/2018 Constitutional No diaphoresis 02/13/2018 Constitutional fatigue 02/13/2018 Constitutional No fever 02/13/2018 Constitutional malaise 02/13/2018 Constitutional weight loss 02/13/2018 Eyes No eye discharge 02/13/2018 Eyes No eye erythema 02/13/2018 Ears/Nose/Throat/Neck No dizziness 02/13/2018 Ears/Nose/Throat/Neck headache 02/13/2018 Cardiovascular No chest pain/pressure 02/13/2018 Cardiovascular No dyspnea 02/13/2018 Respiratory No cough 02/13/2018 Gastrointestinal No abdominal pain 02/13/2018 Gastrointestinal gastroesophageal reflux 02/13/2018 Genitourinary/Nephrology No dysuria 02/13/2018 Musculoskeletal joint complaint 02/13/2018 Neurologic No alteration of consciousness 02/13/2018 Ears/Nose/Throat/Neck nasal allergies 02/13/2018 Ears/Nose/Throat/Neck No nasal discharge 02/13/2018 Ears/Nose/Throat/Neck No sinus congestion 02/13/2018 Ears/Nose/Throat/Neck No postnasal drip 02/13/2018 Respiratory No chest congestion 02/13/2018 Respiratory No cigarette smoking 02/13/2018 Gastrointestinal No constipation 02/13/2018 Gastrointestinal diarrhea 02/13/2018 Gastrointestinal No vomiting 02/13/2018 Gastrointestinal No nausea 02/13/2018 Gastrointestinal No melena 02/13/2018 Gastrointestinal No hematochezia 02/13/2018 Neurologic No mental status change 02/13/2018 Constitutional No recent illness 01/29/2018 Constitutional anorexia 01/29/2018 Constitutional No night sweats 01/29/2018 Constitutional No chills 01/29/2018 Constitutional No diaphoresis 01/29/2018 Constitutional fatigue 01/29/2018 Constitutional No fever 01/29/2018 Constitutional No insomnia 01/29/2018 Constitutional No malaise 01/29/2018 Constitutional weight loss 01/29/2018 Constitutional No weight gain 01/29/2018 Eyes No eye discharge 01/29/2018 Eyes No eye erythema 01/29/2018 Ears/Nose/Throat/Neck No dizziness 01/29/2018 Ears/Nose/Throat/Neck No headache 01/29/2018 Cardiovascular No chest pain/pressure 01/29/2018 Cardiovascular No dyspnea 01/29/2018 Cardiovascular No edema 01/29/2018 Respiratory No cough 01/29/2018 Gastrointestinal No abdominal pain 01/29/2018 Musculoskeletal joint complaint 01/29/2018 Genitourinary/Nephrology No dysuria 01/29/2018 Dermatologic sores 01/29/2018 Neurologic No alteration of consciousness 01/29/2018 Gastrointestinal gastroesophageal reflux 01/29/2018 Constitutional recent illness 08/27/2017 Constitutional No chills 08/27/2017 Constitutional No diaphoresis 08/27/2017 Constitutional No fever 08/27/2017 Constitutional malaise 08/27/2017 Constitutional fatigue 08/27/2017 Eyes No eye erythema 08/27/2017 Ears/Nose/Throat/Neck nasal allergies 08/27/2017 Ears/Nose/Throat/Neck No sinus congestion 08/27/2017 Ears/Nose/Throat/Neck No sore throat 08/27/2017 Cardiovascular No chest pain/pressure 08/27/2017 Cardiovascular No dyspnea 08/27/2017 Respiratory No cough 08/27/2017 Respiratory No dyspnea 08/27/2017 Gastrointestinal No abdominal pain 08/27/2017 Musculoskeletal arthralgia(s) 08/27/2017 Musculoskeletal joint complaint 08/27/2017 Neurologic No alteration of consciousness 08/27/2017 Neurologic No mental status change 08/27/2017 Constitutional No recent illness 08/16/2017 Constitutional No anorexia 08/16/2017 Constitutional No night sweats 08/16/2017 Constitutional No chills 08/16/2017 Constitutional No diaphoresis 08/16/2017 Constitutional No fatigue 08/16/2017 Constitutional No fever 08/16/2017 Constitutional No insomnia 08/16/2017 Constitutional No malaise 08/16/2017 Eyes No eye discharge 08/16/2017 Eyes No eye erythema 08/16/2017 Ears/Nose/Throat/Neck No dizziness 08/16/2017 Ears/Nose/Throat/Neck No headache 08/16/2017 Cardiovascular No chest pain/pressure 08/16/2017 Cardiovascular No dyspnea 08/16/2017 Respiratory No cough 08/16/2017 Gastrointestinal No abdominal pain 08/16/2017 Gastrointestinal No constipation 08/16/2017 Gastrointestinal No diarrhea 08/16/2017 Genitourinary/Nephrology No dysuria 08/16/2017 Musculoskeletal joint complaint 08/16/2017 Dermatologic No rash 08/16/2017 Neurologic No alteration of consciousness 08/16/2017 Psychiatric No depression 08/16/2017 Endocrine No dry or coarse skin 08/16/2017 Dermatologic sores 08/16/2017 Constitutional No recent illness 07/26/2017 Constitutional No chills 07/26/2017 Constitutional No diaphoresis 07/26/2017 Constitutional No fever 07/26/2017 Eyes No eye erythema 07/26/2017 Ears/Nose/Throat/Neck No nasal allergies 07/26/2017 Ears/Nose/Throat/Neck No nasal discharge 07/26/2017 Cardiovascular No dyspnea 07/26/2017 Cardiovascular No chest pain/pressure 07/26/2017 Respiratory No cough 07/26/2017 Respiratory No chest congestion 07/26/2017 Respiratory No dyspnea 07/26/2017 Gastrointestinal No abdominal pain 07/26/2017 Dermatologic rash 07/26/2017 Neurologic No alteration of consciousness 07/26/2017 Neurologic No mental status change 07/26/2017 Constitutional No recent illness 07/03/2017 Constitutional No anorexia 07/03/2017 Constitutional No night sweats 07/03/2017 Constitutional No chills 07/03/2017 Constitutional No diaphoresis 07/03/2017 Constitutional No fatigue 07/03/2017 Constitutional No fever 07/03/2017 Constitutional No insomnia 07/03/2017 Constitutional No malaise 07/03/2017 Constitutional No weight loss 07/03/2017 Constitutional No weight gain 07/03/2017 Dermatologic sores 07/03/2017 Constitutional No recent illness 06/29/2017 Constitutional No night sweats 06/29/2017 Constitutional No anorexia 06/29/2017 Constitutional No chills 06/29/2017 Constitutional No diaphoresis 06/29/2017 Constitutional fatigue 06/29/2017 Constitutional No fever 06/29/2017 Constitutional No insomnia 06/29/2017 Constitutional No malaise 06/29/2017 Constitutional No weight loss 06/29/2017 Constitutional No weight gain 06/29/2017 Dermatologic laceration 06/29/2017 Constitutional No recent illness 06/18/2017 Constitutional No anorexia 06/18/2017 Constitutional No night sweats 06/18/2017 Constitutional No chills 06/18/2017 Constitutional No diaphoresis 06/18/2017 Constitutional No fatigue 06/18/2017 Constitutional No fever 06/18/2017 Constitutional No insomnia 06/18/2017 Constitutional No malaise 06/18/2017 Constitutional No weight loss 06/18/2017 Constitutional No weight gain 06/18/2017 Dermatologic sores 06/18/2017 Constitutional recent illness 06/07/2017 Constitutional No anorexia 06/07/2017 Constitutional No night sweats 06/07/2017 Constitutional No chills 06/07/2017 Constitutional No diaphoresis 06/07/2017 Constitutional fatigue 06/07/2017 Constitutional No fever 06/07/2017 Constitutional No insomnia 06/07/2017 Constitutional No malaise 06/07/2017 Constitutional No weight loss 06/07/2017 Constitutional No weight gain 06/07/2017 Dermatologic erythema 06/07/2017 Ears/Nose/Throat/Neck sore throat 06/07/2017 Musculoskeletal joint complaint 06/07/2017 Genitourinary/Nephrology No dysuria 06/07/2017 Gastrointestinal No abdominal pain 06/07/2017 Respiratory No cough 06/07/2017 Cardiovascular No chest pain/pressure 06/07/2017 Cardiovascular No dyspnea 06/07/2017 Eyes No eye erythema 06/07/2017 Eyes No eye discharge 06/07/2017 Gastrointestinal gastroesophageal reflux 06/07/2017 Constitutional No recent illness 05/17/2017 Constitutional No anorexia 05/17/2017 Constitutional No night sweats 05/17/2017 Constitutional No chills 05/17/2017 Constitutional No diaphoresis 05/17/2017 Constitutional No fatigue 05/17/2017 Constitutional No fever 05/17/2017 Constitutional No insomnia 05/17/2017 Constitutional No malaise 05/17/2017 Constitutional No weight loss 05/17/2017 Constitutional No weight gain 05/17/2017 Constitutional No obesity 05/17/2017 Eyes No eye pain 05/17/2017 Eyes No vision change 05/17/2017 Ears/Nose/Throat/Neck No dizziness 05/17/2017 Ears/Nose/Throat/Neck No headache 05/17/2017 Cardiovascular No chest pain/pressure 05/17/2017 Cardiovascular No dyspnea 05/17/2017 Cardiovascular No palpitations 05/17/2017 Respiratory No chest congestion 05/17/2017 Respiratory No chest tightness 05/17/2017 Respiratory No cigarette smoking 05/17/2017 Respiratory No cough 05/17/2017 Gastrointestinal No abdominal pain 05/17/2017 Gastrointestinal No constipation 05/17/2017 Gastrointestinal No diarrhea 05/17/2017 Genitourinary/Nephrology No anuria/oliguria 05/17/2017 Genitourinary/Nephrology No dysuria 05/17/2017 Musculoskeletal No stiffness 05/17/2017 Musculoskeletal No swelling 05/17/2017 Musculoskeletal No arthralgia(s) 05/17/2017 Musculoskeletal No back pain 05/17/2017 Musculoskeletal No bone fracture 05/17/2017 Musculoskeletal No muscle weakness 05/17/2017 Dermatologic No rash 05/17/2017 Dermatologic No sores 05/17/2017 Neurologic No alteration of consciousness 05/17/2017 Neurologic No dizziness 05/17/2017 Neurologic No mental status change 05/17/2017 Psychiatric No anxiety 05/17/2017 Psychiatric No depression 05/17/2017 Endocrine No polydipsia 05/17/2017 Endocrine No polyuria 05/17/2017 Hematologic/Lymphatic No abnormal ecchymoses 05/17/2017 Hematologic/Lymphatic No abnormal bleeding and bruising 05/17/2017 Allergy/Immunology No rhinitis 05/17/2017 Allergy/Immunology No urticaria 05/17/2017 Dermatologic rash 05/04/2017 Constitutional No recent illness 05/04/2017 Constitutional No anorexia 05/04/2017 Constitutional No night sweats 05/04/2017 Constitutional No chills 05/04/2017 Constitutional No diaphoresis 05/04/2017 Constitutional No fatigue 05/04/2017 Constitutional No fever 05/04/2017 Constitutional No insomnia 05/04/2017 Constitutional No malaise 05/04/2017 Constitutional No weight loss 05/04/2017 Constitutional No weight gain 05/04/2017 Constitutional No recent illness 03/15/2017 Constitutional No anorexia 03/15/2017 Constitutional No night sweats 03/15/2017 Constitutional No chills 03/15/2017 Constitutional No diaphoresis 03/15/2017 Constitutional No fatigue 03/15/2017 Constitutional No fever 03/15/2017 Constitutional No insomnia 03/15/2017 Constitutional No malaise 03/15/2017 Constitutional No weight loss 03/15/2017 Constitutional No weight gain 03/15/2017 Constitutional No obesity 03/15/2017 Eyes No eye pain 03/15/2017 Eyes No vision change 03/15/2017 Ears/Nose/Throat/Neck No dizziness 03/15/2017 Ears/Nose/Throat/Neck No headache 03/15/2017 Cardiovascular No dyspnea 03/15/2017 Cardiovascular No palpitations 03/15/2017 Cardiovascular No chest pain/pressure 03/15/2017 Respiratory No chest congestion 03/15/2017 Respiratory No chest tightness 03/15/2017 Respiratory No cigarette smoking 03/15/2017 Respiratory No cough 03/15/2017 Gastrointestinal No abdominal pain 03/15/2017 Gastrointestinal No constipation 03/15/2017 Gastrointestinal No diarrhea 03/15/2017 Genitourinary/Nephrology No dysuria 03/15/2017 Genitourinary/Nephrology No anuria/oliguria 03/15/2017 Musculoskeletal No stiffness 03/15/2017 Musculoskeletal No swelling 03/15/2017 Musculoskeletal No arthralgia(s) 03/15/2017 Musculoskeletal No bone fracture 03/15/2017 Musculoskeletal No muscle weakness 03/15/2017 Musculoskeletal No back pain 03/15/2017 Dermatologic No rash 03/15/2017 Dermatologic No sores 03/15/2017 Neurologic No alteration of consciousness 03/15/2017 Neurologic No dizziness 03/15/2017 Neurologic No mental status change 03/15/2017 Psychiatric No anxiety 03/15/2017 Psychiatric No depression 03/15/2017 Endocrine No polyuria 03/15/2017 Endocrine No polydipsia 03/15/2017 Hematologic/Lymphatic No abnormal ecchymoses 03/15/2017 Hematologic/Lymphatic No abnormal bleeding and bruising 03/15/2017 Allergy/Immunology No rhinitis 03/15/2017 Allergy/Immunology No urticaria 03/15/2017 Constitutional recent illness 03/01/2017 Constitutional No anorexia 03/01/2017 Constitutional No night sweats 03/01/2017 Constitutional No chills 03/01/2017 Constitutional No diaphoresis [...] Eyes No macular degeneration 03/01/2017 Ears/Nose/Throat/Neck dizziness 03/01/2017 Ears/Nose/Throat/Neck No headache 03/01/2017 Cardiovascular No arrhythmia 03/01/2017 Cardiovascular No chest pain/pressure 03/01/2017 Cardiovascular No claudication 03/01/2017 Cardiovascular dyspnea 03/01/2017 Cardiovascular No edema 03/01/2017 Cardiovascular No exercise intolerance 03/01/2017 Cardiovascular No fatigue 03/01/2017 Cardiovascular No hypertension 03/01/2017 Cardiovascular No near-syncope/dizziness 03/01/2017 Cardiovascular No orthopnea 03/01/2017 Cardiovascular No palpitations 03/01/2017 Cardiovascular No paroxysmal nocturnal dyspnea 03/01/2017 Cardiovascular No syncope 03/01/2017 Respiratory No asthma 03/01/2017 Respiratory No pleuritic pain 03/01/2017 Respiratory No productive sputum 03/01/2017 Respiratory No foul smelling sputum 03/01/2017 Respiratory No apneic events 03/01/2017 Respiratory No aspiration 03/01/2017 Respiratory No chest congestion 03/01/2017 Respiratory chest tightness 03/01/2017 Respiratory No cigarette smoking 03/01/2017 Respiratory cough 03/01/2017 Respiratory No daytime hypersomnolence 03/01/2017 Respiratory dyspnea on exertion 03/01/2017 Respiratory dyspnea 03/01/2017 Respiratory No hemoptysis 03/01/2017 Respiratory No hiccups 03/01/2017 Respiratory nocturnal cough 03/01/2017 Respiratory No passive smoking 03/01/2017 Respiratory No pedal edema 03/01/2017 Respiratory No orthopnea 03/01/2017 Respiratory No snoring 03/01/2017 Respiratory No stridor 03/01/2017 Respiratory No wheezing 03/01/2017 Gastrointestinal No abdominal pain 03/01/2017 Gastrointestinal No constipation 03/01/2017 Gastrointestinal No diarrhea 03/01/2017 Genitourinary/Nephrology No anuria/oliguria 03/01/2017 Genitourinary/Nephrology No dysuria 03/01/2017 Musculoskeletal No stiffness 03/01/2017 Musculoskeletal No swelling 03/01/2017 Musculoskeletal No arthralgia(s) 03/01/2017 Musculoskeletal No back pain 03/01/2017 Dermatologic No rash 03/01/2017 Dermatologic No sores 03/01/2017 Neurologic No alteration of consciousness 03/01/2017 Neurologic No headache 03/01/2017 Neurologic No mental status change 03/01/2017 Psychiatric No anxiety 03/01/2017 Psychiatric No depression 03/01/2017 Hematologic/Lymphatic No abnormal ecchymoses 03/01/2017 Hematologic/Lymphatic No abnormal bleeding and bruising 03/01/2017 Endocrine No dry or coarse skin 03/01/2017 Endocrine No hair loss 03/01/2017 Endocrine No polyuria 03/01/2017 Endocrine No polydipsia 03/01/2017 Allergy/Immunology No anaphylactoid reaction 03/01/2017 Allergy/Immunology No food allergy 03/01/2017 Constitutional recent illness 02/16/2017 Constitutional No anorexia 02/16/2017 Constitutional No night sweats 02/16/2017 Constitutional chills 02/16/2017 Constitutional diaphoresis 02/16/2017 Constitutional fatigue 02/16/2017 Constitutional fever 02/16/2017 Constitutional No insomnia 02/16/2017 Constitutional malaise 02/16/2017 Constitutional No weight loss 02/16/2017 Constitutional No weight gain 02/16/2017 Eyes No eye erythema 02/16/2017 Eyes No eye discharge 02/16/2017 Ears/Nose/Throat/Neck dizziness 02/16/2017 Ears/Nose/Throat/Neck headache 02/16/2017 Ears/Nose/Throat/Neck nasal allergies 02/16/2017 Ears/Nose/Throat/Neck No nasal discharge 02/16/2017 Ears/Nose/Throat/Neck No otitis media 02/16/2017 Ears/Nose/Throat/Neck sinus congestion 02/16/2017 Ears/Nose/Throat/Neck No sore throat 02/16/2017 Cardiovascular No chest pain/pressure 02/16/2017 Respiratory No productive sputum 02/16/2017 Respiratory chest congestion 02/16/2017 Respiratory cough 02/16/2017 Respiratory dyspnea on exertion 02/16/2017 Gastrointestinal No abdominal pain 02/16/2017 Gastrointestinal No constipation 02/16/2017 Gastrointestinal diarrhea 02/16/2017 Genitourinary/Nephrology No dysuria 02/16/2017 Musculoskeletal No joint complaint 02/16/2017 Dermatologic No rash 02/16/2017 Neurologic No alteration of consciousness 02/16/2017 Constitutional recent illness 02/12/2017 Constitutional No anorexia 02/12/2017 Constitutional No night sweats 02/12/2017 Constitutional No chills 02/12/2017 Constitutional No diaphoresis 02/12/2017 Constitutional fatigue 02/12/2017 Constitutional No fever 02/12/2017 Constitutional insomnia 02/12/2017 Constitutional malaise 02/12/2017 Constitutional No weight loss 02/12/2017 Constitutional No weight gain 02/12/2017 Constitutional No obesity 02/12/2017 Eyes No eye pain 02/12/2017 Eyes No vision change 02/12/2017 Ears/Nose/Throat/Neck No dizziness 02/12/2017 Ears/Nose/Throat/Neck No facial weakness 02/12/2017 Ears/Nose/Throat/Neck No headache 02/12/2017 Cardiovascular No chest pain/pressure 02/12/2017 Cardiovascular No palpitations 02/12/2017 Cardiovascular No orthopnea 02/12/2017 Cardiovascular No dyspnea 02/12/2017 Respiratory No chest congestion 02/12/2017 Respiratory No chest tightness 02/12/2017 Respiratory No cigarette smoking 02/12/2017 Gastrointestinal No constipation 02/12/2017 Gastrointestinal No diarrhea 02/12/2017 Gastrointestinal No abdominal pain 02/12/2017 Respiratory cough 02/12/2017 Respiratory No productive sputum 02/12/2017 Respiratory wheezing 02/12/2017 Genitourinary/Nephrology No anuria/oliguria 02/12/2017 Genitourinary/Nephrology No dysuria 02/12/2017 Musculoskeletal No stiffness 02/12/2017 Musculoskeletal No arthralgia(s) 02/12/2017 Musculoskeletal No swelling 02/12/2017 Musculoskeletal back pain [...] No anaphylactoid reaction 02/12/2017 Allergy/Immunology No rhinitis 02/12/2017 Allergy/Immunology No urticaria 02/12/2017 Constitutional recent illness 02/05/2017 Constitutional anorexia 02/05/2017 Constitutional No night sweats 02/05/2017 Constitutional No chills 02/05/2017 Constitutional diaphoresis 02/05/2017 Constitutional fatigue 02/05/2017 Constitutional No fever 02/05/2017 Constitutional No insomnia 02/05/2017 Constitutional No malaise 02/05/2017 Constitutional No weight loss 02/05/2017 Constitutional No weight gain 02/05/2017 Eyes No eye discharge 02/05/2017 Eyes No eye erythema 02/05/2017 Eyes vision change 02/05/2017 Ears/Nose/Throat/Neck dizziness 02/05/2017 Ears/Nose/Throat/Neck headache 02/05/2017 Cardiovascular No chest pain/pressure 02/05/2017 Cardiovascular No dyspnea 02/05/2017 Cardiovascular No edema 02/05/2017 Respiratory No cough 02/05/2017 Gastrointestinal No abdominal pain 02/05/2017 Gastrointestinal No constipation 02/05/2017 Gastrointestinal No diarrhea 02/05/2017 Gastrointestinal nausea 02/05/2017 Gastrointestinal No vomiting 02/05/2017 Genitourinary/Nephrology No dysuria 02/05/2017 Musculoskeletal joint complaint 02/05/2017 Dermatologic No rash 02/05/2017 Neurologic gait abnormality 02/05/2017 Psychiatric anxiety 02/05/2017 Endocrine No dry or coarse skin 02/05/2017 Constitutional recent illness 01/29/2017 Constitutional anorexia 01/29/2017 Constitutional No night sweats 01/29/2017 Constitutional No chills 01/29/2017 Constitutional diaphoresis 01/29/2017 Constitutional fatigue 01/29/2017 Constitutional No fever 01/29/2017 Constitutional No insomnia 01/29/2017 Constitutional No malaise 01/29/2017 Constitutional No weight loss 01/29/2017 Constitutional No weight gain 01/29/2017 Eyes No eye erythema 01/29/2017 Eyes No eye discharge 01/29/2017 Ears/Nose/Throat/Neck dizziness 01/29/2017 Ears/Nose/Throat/Neck headache 01/29/2017 Eyes vision change 01/29/2017 Cardiovascular No chest pain/pressure 01/29/2017 Cardiovascular No dyspnea 01/29/2017 Cardiovascular No edema 01/29/2017 Respiratory No cough 01/29/2017 Gastrointestinal No abdominal pain 01/29/2017 Gastrointestinal No constipation 01/29/2017 Gastrointestinal No diarrhea 01/29/2017 Gastrointestinal nausea 01/29/2017 Gastrointestinal No vomiting 01/29/2017 Genitourinary/Nephrology No dysuria 01/29/2017 Musculoskeletal joint complaint 01/29/2017 Dermatologic No rash 01/29/2017 Neurologic gait abnormality 01/29/2017 Psychiatric anxiety 01/29/2017 Endocrine No dry or coarse skin 01/29/2017 Dermatologic erythema 10/09/2016 Musculoskeletal joint complaint 10/09/2016 Dermatologic sores 10/09/2016 Constitutional No recent illness 10/06/2016 Constitutional No anorexia 10/06/2016 Constitutional No night sweats 10/06/2016 Constitutional No diaphoresis 10/06/2016 Constitutional No fatigue 10/06/2016 Constitutional No fever 10/06/2016 Constitutional No chills 10/06/2016 Constitutional No insomnia 10/06/2016 Constitutional No malaise 10/06/2016 Constitutional No weight loss 10/06/2016 Constitutional No weight gain 10/06/2016 Dermatologic erythema 10/06/2016 Dermatologic No drainage 10/06/2016 Musculoskeletal joint complaint 10/06/2016 Musculoskeletal back pain 07/18/2016 Constitutional No recent illness 07/18/2016 Constitutional No anorexia 07/18/2016 Constitutional No night sweats 07/18/2016 Constitutional No chills 07/18/2016 Constitutional fatigue 07/18/2016 Constitutional No diaphoresis 07/18/2016 Constitutional No fever 07/18/2016 Constitutional No insomnia 07/18/2016 Constitutional No weight loss 07/18/2016 Constitutional No malaise 07/18/2016 Constitutional No weight gain 07/18/2016 Musculoskeletal joint complaint 07/18/2016 Dermatologic sores 07/18/2016 Ears/Nose/Throat/Neck No dizziness 07/18/2016 Ears/Nose/Throat/Neck No headache 07/18/2016 Cardiovascular No chest pain/pressure 07/18/2016 Respiratory No cough 07/18/2016 Gastrointestinal No abdominal pain 07/18/2016 Genitourinary/Nephrology No dysuria 07/18/2016 Neurologic No alteration of consciousness 07/18/2016 Constitutional No recent illness 06/22/2016 Constitutional No anorexia 06/22/2016 Constitutional No night sweats 06/22/2016 Constitutional No chills 06/22/2016 Constitutional No diaphoresis 06/22/2016 Constitutional No fatigue 06/22/2016 Constitutional No fever 06/22/2016 Constitutional No insomnia 06/22/2016 Constitutional No malaise 06/22/2016 Constitutional No weight loss 06/22/2016 Constitutional No weight gain 06/22/2016 Eyes No eye discharge 06/22/2016 Eyes No eye erythema 06/22/2016 Ears/Nose/Throat/Neck No dizziness 06/22/2016 Ears/Nose/Throat/Neck No headache 06/22/2016 Cardiovascular No chest pain/pressure 06/22/2016 Cardiovascular No dyspnea 06/22/2016 Cardiovascular No edema 06/22/2016 Respiratory No cough 06/22/2016 Gastrointestinal No abdominal pain 06/22/2016 Gastrointestinal No constipation 06/22/2016 Gastrointestinal No diarrhea 06/22/2016 Genitourinary/Nephrology No dysuria 06/22/2016 Musculoskeletal No joint complaint 06/22/2016 Dermatologic No rash 06/22/2016 Neurologic No alteration of consciousness 06/22/2016 Psychiatric depression 06/22/2016 Musculoskeletal back pain 06/22/2016 Constitutional No recent illness 05/23/2016 Constitutional No anorexia 05/23/2016 Constitutional No night sweats 05/23/2016 Constitutional No chills 05/23/2016 Constitutional No diaphoresis 05/23/2016 Constitutional No fatigue 05/23/2016 Constitutional No insomnia 05/23/2016 Constitutional No fever 05/23/2016 Constitutional No malaise 05/23/2016 Constitutional No weight loss 05/23/2016 Constitutional No weight gain 05/23/2016 Eyes No eye discharge 05/23/2016 Eyes No eye erythema 05/23/2016 Ears/Nose/Throat/Neck No dizziness 05/23/2016 Ears/Nose/Throat/Neck No headache 05/23/2016 Cardiovascular No chest pain/pressure 05/23/2016 Cardiovascular No dyspnea 05/23/2016 Respiratory No cough 05/23/2016 Gastrointestinal No abdominal pain 05/23/2016 Gastrointestinal No constipation 05/23/2016 Gastrointestinal No diarrhea 05/23/2016 Genitourinary/Nephrology No dysuria 05/23/2016 Dermatologic No rash 05/23/2016 Musculoskeletal joint complaint 05/23/2016 Neurologic No alteration of consciousness 05/23/2016 Endocrine No dry or coarse skin 05/23/2016 Psychiatric No depression 05/23/2016 Constitutional recent illness 05/15/2016 Constitutional anorexia 05/15/2016 Constitutional chills 05/15/2016 Constitutional diaphoresis 05/15/2016 Constitutional fatigue 05/15/2016 Constitutional No fever 05/15/2016 Constitutional No insomnia 05/15/2016 Constitutional No malaise 05/15/2016 Constitutional No weight loss 05/15/2016 Constitutional No weight gain 05/15/2016 Eyes No eye discharge 05/15/2016 Eyes No eye erythema 05/15/2016 Ears/Nose/Throat/Neck dizziness 05/15/2016 Ears/Nose/Throat/Neck headache 05/15/2016 Cardiovascular No chest pain/pressure 05/15/2016 Respiratory No cough 05/15/2016 Respiratory dyspnea on exertion 05/15/2016 Gastrointestinal No abdominal pain 05/15/2016 Gastrointestinal No constipation 05/15/2016 Gastrointestinal No diarrhea 05/15/2016 Cardiovascular No near-syncope/dizziness 05/15/2016 Cardiovascular No syncope 05/15/2016 Gastrointestinal nausea 05/15/2016 Gastrointestinal No vomiting 05/15/2016 Genitourinary/Nephrology No dysuria 05/15/2016 Musculoskeletal joint complaint 05/15/2016 Dermatologic No rash 05/15/2016 Dermatologic No sores 05/15/2016 Neurologic No alteration of consciousness 05/15/2016 Neurologic paresthesia 05/15/2016 Psychiatric anxiety 05/15/2016 Endocrine No dry or coarse skin 05/15/2016 Endocrine No polydipsia 05/15/2016 Endocrine weakness 05/15/2016 Endocrine sweating 05/15/2016 Hematologic/Lymphatic No abnormal ecchymoses 05/15/2016 Constitutional No recent illness 01/20/2016 Constitutional No fatigue 01/20/2016 Constitutional No fever 01/20/2016 Constitutional No malaise 01/20/2016 Eyes No eye erythema 01/20/2016 Eyes No photophobia 01/20/2016 Ears/Nose/Throat/Neck No nasal allergies 01/20/2016 Ears/Nose/Throat/Neck No nasal discharge 01/20/2016 Ears/Nose/Throat/Neck No otalgia 01/20/2016 Ears/Nose/Throat/Neck No postnasal drip 01/20/2016 Ears/Nose/Throat/Neck No sinus congestion 01/20/2016 Cardiovascular No chest pain/pressure 01/20/2016 Cardiovascular No dyspnea 01/20/2016 Cardiovascular No edema 01/20/2016 Respiratory No productive sputum 01/20/2016 Respiratory No chest congestion 01/20/2016 Respiratory No cough 01/20/2016 Respiratory No cigarette smoking 01/20/2016 Respiratory No dyspnea 01/20/2016 Gastrointestinal No abdominal pain 01/20/2016 Gastrointestinal No constipation 01/20/2016 Gastrointestinal No diarrhea 01/20/2016 Gastrointestinal No gastroesophageal reflux 01/20/2016 Gastrointestinal No nausea 01/20/2016 Gastrointestinal No vomiting 01/20/2016 Genitourinary/Nephrology No dysuria 01/20/2016 Musculoskeletal back pain 01/20/2016 Dermatologic rash 01/20/2016 Neurologic No alteration of consciousness 01/20/2016 Neurologic No mental status change 01/20/2016 Physical Exam Exam Name System Name Item Name Status Result Effective Dates Notes Full Exam - General 1994 Constitutional general appearance Overall: well nourished 04/03/2019 None Full Exam - General 1994 Constitutional general appearance Overall: well developed 04/03/2019 None Full Exam - General 1994 Constitutional general appearance Overall: in no acute distress 04/03/2019 None Full Exam - General 1994 Respiratory auscultation Overall: breath sounds clear bilaterally 04/03/2019 None Full Exam - General 1994 Respiratory respiratory effort/rhythm Overall: normal rate 04/03/2019 None Full Exam - General 1994 Respiratory respiratory effort/rhythm Overall: no retractions 04/03/2019 None Full Exam - General 1994 Cardiovascular auscultation of heart Overall: regular rate 04/03/2019 None Full Exam - General 1994 Cardiovascular auscultation of heart Overall: normal heart sounds 04/03/2019 None Full Exam - General 1994 Cardiovascular auscultation of heart Overall: no murmurs 04/03/2019 None Full Exam - General 1994 Psychiatric orientation/consciousness Overall: oriented to person, place and time 04/03/2019 None Full Exam - General 1994 Psychiatric mood and affect Mood: happy 04/03/2019 None Full Exam - General 1994 Psychiatric mood and affect Overall: normal mood and affect 04/03/2019 None Full Exam - General 1994 Musculoskeletal upper extremity Inspection - carpals: swelling 04/03/2019 None Full Exam - General 1994 Musculoskeletal upper extremity Inspection - metacarpales: swelling 04/03/2019 None Full Exam - General 1994 Musculoskeletal upper extremity Palpation - metacarpales: tenderness over the fourth metacarpale 04/03/2019 None Full Exam - General 1994 Musculoskeletal upper extremity Palpation - metacarpales: tenderness over the fifth metacarpale 04/03/2019 None Full Exam - General 1994 Constitutional general appearance Overall: well developed 03/07/2019 None Full Exam - General 1994 Constitutional general appearance Overall: in no acute distress 03/07/2019 None Full Exam - General 1994 Constitutional general appearance Overall: well nourished 03/07/2019 None Full Exam - General 1994 Eyes conjunctiva/eyelids Overall: conjunctiva clear 03/07/2019 None Full Exam - General 1994 Eyes conjunctiva/eyelids Overall: cornea clear 03/07/2019 None Full Exam - General 1994 Eyes conjunctiva/eyelids Overall: eyelids normal 03/07/2019 None Full Exam [...] None Full Exam - General 1994 Eyes conjunctiva/eyelids Overall: conjunctiva clear 02/27/2019 None Full Exam - General 1994 Eyes conjunctiva/eyelids Overall: cornea clear 02/27/2019 None Full Exam - General 1994 Eyes conjunctiva/eyelids Overall: eyelids normal 02/27/2019 None Full Exam [...] None Full Exam - General 1994 Eyes conjunctiva/eyelids Overall: conjunctiva clear 02/17/2019 None Full Exam - General 1994 Eyes conjunctiva/eyelids Overall: cornea clear 02/17/2019 None Full Exam - General 1994 Eyes conjunctiva/eyelids Overall: eyelids normal 02/17/2019 None Full Exam - General 1994 Ears/Nose/Throat lips/teeth/gingiva Overall: benign lips 02/17/2019 None Full Exam - General 1995 [...] None Full Exam - General 1994 Eyes conjunctiva/eyelids Overall: conjunctiva clear 01/13/2019 None Full Exam - General 1994 Eyes conjunctiva/eyelids Overall: cornea clear 01/13/2019 None Full Exam - General 1994 Eyes conjunctiva/eyelids Overall: eyelids normal 01/13/2019 None Full Exam [...] None Full Exam - General 1994 Eyes conjunctiva/eyelids Overall: conjunctiva clear 12/31/2018 None Full Exam - General 1994 Eyes conjunctiva/eyelids Overall: cornea clear 12/31/2018 None Full Exam - General 1994 Eyes conjunctiva/eyelids Overall: eyelids normal 12/31/2018 None Full Exam [...] None Full Exam - General 1994 Eyes conjunctiva/eyelids Overall: eyelids normal 12/26/2018 None Full Exam - General 1994 Eyes conjunctiva/eyelids Overall: cornea clear 12/26/2018 None Full Exam - General 1994 Eyes conjunctiva/eyelids Overall: conjunctiva clear 12/26/2018 None Full Exam [...] - ENT Respiratory inspection Overall: normal rate 11/18/2018 None Full Exam - ENT [...] - ENT Respiratory inspection Overall: normal rate 11/12/2018 None Full Exam - ENT [...] - ENT Respiratory inspection Overall: normal rate 10/30/2018 None Full Exam - ENT Respiratory auscultation [...] None Full Exam - General 1994 Eyes conjunctiva/eyelids Overall: conjunctiva clear 10/23/2018 None Full Exam [...] None Full Exam - General 1994 Eyes conjunctiva/eyelids Overall: conjunctiva clear 10/21/2018 None Full Exam [...] 10/17/2018 None Full Exam - Dermatology Eyes conjunctiva/eyelids Overall: clear conjunctiva bilaterally 10/17/2018 None Full Exam - Dermatology Eyes conjunctiva/eyelids Overall: clear corneas 10/17/2018 None Full Exam - Dermatology Eyes conjunctiva/eyelids Overall: normal eyelids 10/17/2018 None Full Exam [...] - ENT Respiratory inspection Overall: normal rate 10/14/2018 None Full Exam - ENT [...] - ENT Respiratory inspection Overall: normal rate 09/30/2018 None Full Exam - ENT Respiratory [...] Exam - ENT Respiratory auscultation Diffuse: diminished 09/30/2018 None Full Exam - ENT Respiratory [...] - ENT Respiratory inspection Overall: normal rate 09/09/2018 None Full Exam - ENT Face [...] None Full Exam - General 1994 Eyes conjunctiva/eyelids Overall: conjunctiva clear 07/22/2018 None Full Exam [...] None Full Exam - General 1994 Eyes conjunctiva/eyelids Overall: conjunctiva clear 07/16/2018 None Full Exam - General 1994 Eyes conjunctiva/eyelids Overall: cornea clear 07/16/2018 None Full Exam - General 1994 Eyes conjunctiva/eyelids Overall: eyelids normal 07/16/2018 None Full Exam [...] None Full Exam - General 1994 Eyes conjunctiva/eyelids Overall: conjunctiva clear 06/28/2018 None Full Exam - General 1994 Eyes conjunctiva/eyelids Overall: eyelids normal 06/28/2018 None Full Exam - General 1994 Eyes conjunctiva/eyelids Overall: cornea clear 06/28/2018 None Full Exam [...] None Full Exam - General 1994 Eyes conjunctiva/eyelids Overall: conjunctiva clear 06/18/2018 None Full Exam - General 1994 Eyes conjunctiva/eyelids Overall: cornea clear 06/18/2018 None Full Exam - General 1994 Eyes conjunctiva/eyelids Overall: eyelids normal 06/18/2018 None Full Exam [...] None Full Exam - General 1994 Eyes conjunctiva/eyelids Overall: conjunctiva clear 06/04/2018 None Full Exam - General 1994 Eyes conjunctiva/eyelids Overall: cornea clear 06/04/2018 None Full Exam - General 1994 Eyes conjunctiva/eyelids Overall: eyelids normal 06/04/2018 None Full Exam [...] None Full Exam - General 1994 Eyes conjunctiva/eyelids Overall: conjunctiva clear 05/13/2018 None Full Exam - General 1994 Eyes conjunctiva/eyelids Overall: cornea clear 05/13/2018 None Full Exam - General 1994 Eyes conjunctiva/eyelids Overall: eyelids normal 05/13/2018 None Full Exam [...] None Full Exam - General 1994 Eyes conjunctiva/eyelids Overall: conjunctiva clear 05/02/2018 None Full Exam - General 1994 Eyes conjunctiva/eyelids Overall: cornea clear 05/02/2018 None Full Exam - General 1994 Eyes conjunctiva/eyelids Overall: eyelids normal 05/02/2018 None Full Exam [...] None Full Exam - General 1994 Eyes conjunctiva/eyelids Overall: conjunctiva clear 04/29/2018 None Full Exam - General 1994 Eyes conjunctiva/eyelids Overall: cornea clear 04/29/2018 None Full Exam - General 1994 Eyes conjunctiva/eyelids Overall: eyelids normal 04/29/2018 None Full Exam [...] None Full Exam - General 1994 Eyes conjunctiva/eyelids Overall: conjunctiva clear 03/13/2018 None Full Exam - General 1994 Eyes conjunctiva/eyelids Overall: cornea clear 03/13/2018 None Full Exam - General 1994 Eyes conjunctiva/eyelids Overall: eyelids normal 03/13/2018 None Full Exam [...] None Full Exam - General 1994 Eyes conjunctiva/eyelids Overall: conjunctiva clear 03/07/2018 None Full Exam - General 1994 Eyes conjunctiva/eyelids Overall: cornea clear 03/07/2018 None Full Exam - General 1994 Eyes conjunctiva/eyelids Overall: eyelids normal 03/07/2018 None Full Exam [...] None Full Exam - General 1994 Eyes conjunctiva/eyelids Overall: conjunctiva clear 02/28/2018 None Full Exam - General 1994 Eyes conjunctiva/eyelids Overall: cornea clear 02/28/2018 None Full Exam - General 1994 Eyes conjunctiva/eyelids Overall: eyelids normal 02/28/2018 None Full Exam [...] None Full Exam - General 1994 Eyes conjunctiva/eyelids Overall: conjunctiva clear 02/13/2018 None Full Exam [...] None Full Exam - General 1994 Eyes conjunctiva/eyelids Overall: cornea clear 02/13/2018 None Full Exam - General 1994 Eyes conjunctiva/eyelids Overall: eyelids normal 02/13/2018 None Full Exam [...] None Full Exam - General 1994 Eyes conjunctiva/eyelids Overall: conjunctiva clear 01/29/2018 None Full Exam [...] None Full Exam - General 1994 Eyes conjunctiva/eyelids Overall: conjunctiva clear 08/27/2017 None Full Exam [...] None Full Exam - General 1994 Eyes conjunctiva/eyelids Overall: conjunctiva clear 08/16/2017 None Full Exam [...] Neurologic sensation Touch: (specify location of deficit): two- point discrimination _ 08/16/2017 None Full Exam - General 1994 Neurologic sensation Touch: (specify location of deficit): decreased 08/16/2017 missing toes 2-5 left foot and middle toes x 2 [...] 07/26/2017 None Full Exam - Dermatology Eyes conjunctiva/eyelids Overall: clear conjunctiva bilaterally 07/26/2017 None Full Exam - Dermatology Eyes conjunctiva/eyelids Overall: normal eyelids 07/26/2017 None Full Exam [...] with approx 3cm x 3cm wound opening-boggy -culture obtain, 0.5cm ulcer anterior ankle Full Exam [...] None Full Exam - General 1994 Eyes conjunctiva/eyelids Overall: conjunctiva clear 06/07/2017 None Full Exam - General 1994 Eyes conjunctiva/eyelids Overall: cornea clear 06/07/2017 None Full Exam - General 1994 Eyes conjunctiva/eyelids Overall: eyelids normal 06/07/2017 None Full Exam [...] General 1994 Neck thyroid Overall: normal size 06/07/2017 None Full Exam - General 1994 Neck thyroid Overall: normal consistency 06/07/2017 None Full Exam - General 1994 Neck thyroid Overall: nontender 06/07/2017 None Full Exam - General 1994 [...] intact with purulent drainge and erythema to midfoot, 1+ edema noted to right ankle Full [...] None Full Exam - General 1994 Eyes conjunctiva/eyelids Overall: conjunctiva clear 05/17/2017 None Full Exam - General 1994 Eyes conjunctiva/eyelids Overall: cornea clear 05/17/2017 None Full Exam - General 1994 Eyes conjunctiva/eyelids Overall: eyelids normal 05/17/2017 None Full Exam [...] General 1994 Neck thyroid Overall: normal size 05/17/2017 None Full Exam - General 1994 Neck thyroid Overall: normal consistency 05/17/2017 None Full Exam - General 1994 Neck thyroid Overall: nontender 05/17/2017 None Full Exam - General 1994 [...] None Full Exam - General 1994 Eyes conjunctiva/eyelids Overall: conjunctiva clear 03/15/2017 None Full Exam - General 1994 Eyes conjunctiva/eyelids Overall: cornea clear 03/15/2017 None Full Exam - General 1994 Eyes conjunctiva/eyelids Overall: eyelids normal 03/15/2017 None Full Exam [...] General 1994 Neck thyroid Overall: normal size 03/15/2017 None Full Exam - General 1994 Neck thyroid Overall: normal consistency 03/15/2017 None Full Exam - General 1994 Neck thyroid Overall: nontender 03/15/2017 None Full Exam - General 1994 [...] None Full Exam - General 1994 Eyes conjunctiva/eyelids Overall: conjunctiva clear 03/01/2017 None Full Exam - General 1994 Eyes conjunctiva/eyelids Overall: cornea clear 03/01/2017 None Full Exam - General 1994 Eyes conjunctiva/eyelids Overall: eyelids normal 03/01/2017 None Full Exam [...] General 1994 Neck thyroid Overall: normal size 03/01/2017 None Full Exam - General 1994 Neck thyroid Overall: normal consistency 03/01/2017 None Full Exam - General 1994 Neck thyroid Overall: nontender 03/01/2017 None Full Exam - General 1994 [...] None Full Exam - General 1994 Eyes conjunctiva/eyelids Overall: conjunctiva clear 02/16/2017 None Full Exam - General 1994 Eyes conjunctiva/eyelids Overall: cornea clear 02/16/2017 None Full Exam - General 1994 Eyes conjunctiva/eyelids Overall: eyelids normal 02/16/2017 None Full Exam [...] General 1994 Neck thyroid Overall: normal size 02/16/2017 None Full Exam - General 1994 Neck thyroid Overall: normal consistency 02/16/2017 None Full Exam - General 1994 Neck thyroid Overall: nontender 02/16/2017 None Full Exam - General 1994 [...] None Full Exam - General 1994 Eyes conjunctiva/eyelids Overall: conjunctiva clear 02/12/2017 None Full Exam - General 1994 Eyes conjunctiva/eyelids Overall: cornea clear 02/12/2017 None Full Exam - General 1994 Eyes conjunctiva/eyelids Overall: eyelids normal 02/12/2017 None Full Exam [...] General 1994 Neck thyroid Overall: normal size 02/12/2017 None Full Exam - General 1994 Neck thyroid Overall: normal consistency 02/12/2017 None Full Exam - General 1994 Neck thyroid Overall: nontender 02/12/2017 None Full Exam - General 1994 [...] None Full Exam - General 1994 Eyes conjunctiva/eyelids Overall: conjunctiva clear 02/05/2017 None Full Exam [...] ataxic rhythm 02/05/2017 decreased strength RUE/RLE 4/5, LUE/LLE 5/5 Full Exam - General 1994 Psychiatric orientation/consciousness Overall: oriented to person, place and time 02/05/2017 None Full Exam - General 1994 Constitutional general appearance Overall: in no acute distress 02/05/2017 None Full Exam - General 1994 Constitutional general appearance Overall: well nourished 02/05/2017 None Full Exam - General 1994 Constitutional general appearance Overall: well developed 01/29/2017 moderate confusion-difficulty finding words Full Exam - General 1994 Eyes conjunctiva/eyelids Overall: conjunctiva clear 01/29/2017 None Full Exam [...] ataxic rhythm 01/29/2017 decreased strength RUE/RLE 3/5, LUE/LLE 5/5 Full Exam - General 1994 Neurologic mental status Level of alertness: lethargic 01/29/2017 oriented to person/place but not time Full Exam - Dermatology [...] None Full Exam - General 1994 Eyes conjunctiva/eyelids Overall: conjunctiva clear 07/18/2016 None Full Exam [...] Neurologic sensation Touch: (specify location of deficit): two- point discrimination _ 07/18/2016 None Full Exam - General 1994 Neurologic sensation Touch: (specify location of deficit): decreased 07/18/2016 missing toes 2-5 left foot and middle toes x 2 [...] None Full Exam - General 1994 Eyes conjunctiva/eyelids Overall: conjunctiva clear 06/22/2016 None Full Exam [...] Neurologic sensation Touch: (specify location of deficit): two- point discrimination _ 06/22/2016 None Full Exam - General 1994 Neurologic sensation Touch: (specify location of deficit): decreased 06/22/2016 missing toes 2-5 left foot and middle toes x 2 [...] None Full Exam - General 1994 Eyes conjunctiva/eyelids Overall: conjunctiva clear 05/23/2016 None Full Exam [...] Neurologic sensation Touch: (specify location of deficit): two- point discrimination _ 05/23/2016 None Full Exam - General 1994 Neurologic sensation Touch: (specify location of deficit): decreased 05/23/2016 missing toes 2-5 left foot and middle toes x 2 [...] Neurologic sensation Touch: (specify location of deficit): two- point discrimination _ 05/15/2016 None Full Exam - General 1994 Neurologic sensation Touch: (specify location of deficit): decreased 05/15/2016 missing toes 2-5 left foot and middle toes x 2 [...] None Full Exam - General 1994 Eyes conjunctiva/eyelids Overall: conjunctiva clear 05/15/2016 None Full Exam [...] None Full Exam - General 1994 Eyes conjunctiva/eyelids Overall: conjunctiva clear 01/20/2016 None Full Exam - General 1994 Eyes conjunctiva/eyelids Overall: cornea clear 01/20/2016 None Full Exam - General 1994 Eyes conjunctiva/eyelids Overall: eyelids normal 01/20/2016 None Full Exam [...] Codes Date URINALYSIS NONAUTO W/O SCOPE CPT-4: 90120 02/17/2019 KETOROLAC TROMETHAMINE INJ CPT-4: J1885 10/21/2018 TRIAMCINOLONE ACET INJ NOS CPT-4: J3301 09/30/2018 THER/PROPH/DIAG INJ SC/IM CPT-4: 80572 09/11/2018 TRIAMCINOLONE ACET INJ NOS CPT-4: J3301 09/11/2018 IMMUNIZATION ADMIN CPT- 4: 70831 07/22/2018 FLU VAC NO PRSV 4 MENA 3 YRS+ CPT-4: 34858 07/22/2018 TRIAMCINOLONE ACET INJ NOS CPT-4: J3301 06/28/2018 KETOROLAC TROMETHAMINE INJ CPT-4: J1885 05/02/2018 FLU VAC NO PRSV 4 MENA 3 YRS+ CPT-4: 58839 08/16/2017 IMMUNIZATION ADMIN CPT- 4: 91244 08/16/2017 URINALYSIS NONAUTO W/O SCOPE CPT-4: 80126 06/21/2017 TRIAMCINOLONE ACET INJ NOS CPT-4: J3301 05/04/2017 THER/PROPH/DIAG INJ SC/IM CPT-4: 07105 05/04/2017 TRIAMCINOLONE ACET INJ NOS CPT-4: J3301 02/16/2017 ROCEPHIN, PER 250 MG CPT- 4: J0696 02/16/2017 ROCEPHIN, PER 250 MG CPT- 4: J0696 10/06/2016 URINALYSIS NONAUTO W/O SCOPE CPT-4: 72169 07/18/2016 TRIAMCINOLONE ACET INJ NOS CPT-4: J3301 01/20/2016 Vital Signs Date Vital 04/03/2019 Blood Pressure 1: 126/70 Code: 8480-6 BMI: 33.0 Code: 49761-6 Heart Rate 1: 100 bpm Height: 6'2" SpO2: 97% Weight: 257 lbs 03/07/2019 Blood Pressure 1: 110/70 Code: 8480-6 BMI: 33.0 Code: 46238-1 Heart Rate 1: 112 bpm Height: 6'2" SpO2: 95% Weight: 257 lbs 02/27/2019 Blood Pressure 1: 110/80 Code: 8480-6 BMI: 33.0 Code: 82865-3 Heart Rate 1: 89 bpm Height: 6'2" SpO2: 95% Weight: 257 lbs 02/17/2019 Blood Pressure 1: 120/80 Code: 8480-6 Blood Pressure 2: 102/80 Code: 8480-6 Heart Rate 1: 89 bpm SpO2: 96% 01/13/2019 Blood Pressure 1: 120/70 Code: 8480-6 BMI: 34.2 Code: 82685-1 Heart Rate 1: 74 bpm Height: 6'2" SpO2: 96% Weight: 266 lbs 12/31/2018 Blood Pressure 1: 122/70 Code: 8480-6 BMI: 34.4 Code: 10069-1 Heart Rate 1: 90 bpm Height: 6'2" SpO2: 97% Temperature: 36.6 (C) / 97.8 (F) Weight: 268 lbs 12/26/2018 Blood Pressure 1: 118/72 Code: 8480-6 BMI: 34.4 Code: 56065-7 Heart Rate 1: 82 bpm Height: 6'2" SpO2: 98% Temperature: 36.6 (C) / 97.9 (F) Weight: 268 lbs 11/18/2018 Blood Pressure 1: 120/84 Code: 8480-6 BMI: 33.9 Code: 38407-7 Heart Rate 1: 77 bpm Height: 6'2" SpO2: 99% Temperature: 36.7 (C) / 98.1 (F) Weight: 264 lbs 11/12/2018 Blood Pressure 1: 138/76 Code: 8480-6 BMI: 33.9 Code: 69997-4 Heart Rate 1: 91 bpm Height: 6'2" SpO2: 99% Weight: 264 lbs 10/30/2018 Blood Pressure 1: 130/72 Code: 8480-6 BMI: 33.3 Code: 16093-1 Heart Rate 1: 83 bpm Height: 6'2" SpO2: 95% Temperature: 36.5 (C) / 97.7 (F) Weight: 259 lbs 10/24/2018 Blood Pressure 1: 130/70 Code: 8480-6 Heart Rate 1: 95 bpm Height: 6'2" SpO2: 96% 10/23/2018 Blood Pressure 1: 100/70 Code: 8480-6 Blood Pressure 2: 102/70 Code: 8480-6 BMI: 33.3 Code: 10984-8 Heart Rate 1: 106 bpm Height: 6'2" SpO2: 98% Weight: 259 lbs 10/21/2018 Blood Pressure 1: 140/90 Code: 8480-6 BMI: 32.9 Code: 79370-5 Heart Rate 1: 96 bpm Height: 6'2" SpO2: 92% Weight: 256 lbs 10/17/2018 Blood Pressure 1: 110/68 Code: 8480-6 BMI: 32.9 Code: 16319-7 Heart Rate 1: 82 bpm Height: 6'2" SpO2: 97% Weight: 256 lbs 10/14/2018 Blood Pressure 1: 124/70 Code: 8480-6 BMI: 33.6 Code: 76695-1 Heart Rate 1: 76 bpm Height: 6'2" SpO2: 99% Temperature: 36.3 (C) / 97.3 (F) Weight: 262 lbs 09/30/2018 Blood Pressure 1: 138/82 Code: 8480-6 BMI: 33.6 Code: 04790-5 Heart Rate 1: 82 bpm Height: 6'2" SpO2: 98% Temperature: 36.3 (C) / 97.3 (F) Weight: 262 lbs 09/09/2018 Blood Pressure 1: 140/80 Code: 8480-6 BMI: 33.0 Code: 10686-4 Heart Rate 1: 97 bpm Height: 6'2" SpO2: 93% Temperature: 36.8 (C) / 98.2 (F) Weight: 257 lbs 07/22/2018 Blood Pressure 1: 120/78 Code: 8480-6 BMI: 31.6 Code: 91096-5 Heart Rate 1: 87 bpm Height: 6'2" SpO2: 98% Weight: 246 lbs 07/16/2018 Blood Pressure 1: 132/74 Code: 8480-6 BMI: 31.2 Code: 85973-2 Heart Rate 1: 90 bpm Height: 6'2" SpO2: 96% Weight: 243 lbs 07/01/2018 Blood Pressure 1: 142/82 Code: 8480-6 BMI: 31.8 Code: 05515-4 Heart Rate 1: 88 bpm Height: 6'2" SpO2: 98% Weight: 248 lbs 06/28/2018 Blood Pressure 1: 132/76 Code: 8480-6 BMI: 31.8 Code: 81660-0 Heart Rate 1: 107 bpm Height: 6'2" SpO2: 98% Temperature: 37.9 (C) / 100.3 (F) Weight: 248 lbs 06/18/2018 Blood Pressure 1: 138/82 Code: 8480-6 BMI: 31.8 Code: 47139-4 Heart Rate 1: 82 bpm Height: 6'2" SpO2: 97% Weight: 248 lbs 06/04/2018 Blood Pressure 1: 128/84 Code: 8480-6 BMI: 33.9 Code: 99524-0 Heart Rate 1: 86 bpm Height: 6'2" SpO2: 95% Weight: 264 lbs 05/13/2018 Blood Pressure 1: 130/80 Code: 8480-6 BMI: 31.1 Code: 28105-4 Heart Rate 1: 100 bpm Height: 6'2" SpO2: 94% Weight: 242 lbs 05/02/2018 Blood Pressure 1: 134/84 Code: 8480-6 BMI: 31.2 Code: 72560-3 Heart Rate 1: 93 bpm Height: 6'2" SpO2: 98% Weight: 243 lbs 04/29/2018 Blood Pressure 1: 142/88 Code: 8480-6 BMI: 31.6 Code: 92154-8 Heart Rate 1: 96 bpm Height: 6'2" SpO2: 96% Temperature: 36.7 (C) / 98.1 (F) Weight: 246 lbs 03/13/2018 Blood Pressure 1: 120/76 Code: 8480-6 BMI: 30.9 Code: 71741-6 Heart Rate 1: 112 bpm Height: 6'2" SpO2: 97% Weight: 241 lbs 03/07/2018 Blood Pressure 1: 108/78 Code: 8480-6 BMI: 30.0 Code: 41164-0 Heart Rate 1: 87 bpm Height: 6'2" SpO2: 98% Weight: 234 lbs 02/28/2018 Blood Pressure 1: 106/74 Code: 8480-6 BMI: 30.0 Code: 08546-9 Heart Rate 1: 101 bpm Height: 6'2" SpO2: 98% Temperature: 36.4 (C) / 97.5 (F) Weight: 234 lbs 02/13/2018 Blood Pressure 1: 110/78 Code: 8480-6 BMI: 30.0 Code: 11914-2 Heart Rate 1: 106 bpm Height: 6'2" SpO2: 98% Weight: 234 lbs 01/29/2018 Blood Pressure 1: 106/68 Code: 8480-6 BMI: 30.0 Code: 23459-1 Heart Rate 1: 108 bpm Height: 6'2" SpO2: 98% Weight: 234 lbs 08/27/2017 Blood Pressure 1: 134/76 Code: 8480-6 Heart Rate 1: 98 bpm Height: SpO2: 97% Weight: 08/16/2017 Blood Pressure 1: 128/80 Code: 8480-6 BMI: 32.0 Code: 25563-0 Heart Rate 1: 94 bpm Height: 6'2" SpO2: 99% Weight: 249 lbs 07/26/2017 Blood Pressure 1: 130/72 Code: 8480-6 Heart Rate 1: 101 bpm Height: 6'2" SpO2: 97% Weight: 07/03/2017 Blood Pressure 1: 140/82 Code: 8480-6 Heart Rate 1: 105 bpm Height: 6'2" SpO2: 97% Weight: 06/29/2017 Blood Pressure 1: 130/74 Code: 8480-6 Heart Rate 1: 99 bpm Height: 6'2" SpO2: 97% Weight: 06/18/2017 Blood Pressure 1: 166/100 Code: 8480-6 Blood Pressure 1: 156/90 Code: 8480-6 Heart Rate 1: 102 bpm Height: SpO2: 97% Temperature: 36.6 (C) / 97.9 (F) Weight: 06/07/2017 Blood Pressure 1: 146/86 Code: 8480-6 Heart Rate 1: 95 bpm Height: 6'2" SpO2: 99% 05/17/2017 Blood Pressure 1: 142/92 Code: 8480-6 BMI: 31.8 Code: 58630-7 Heart Rate 1: 102 bpm Height: 6'2" SpO2: 95% Weight: 248 lbs 05/04/2017 Blood Pressure 1: 144/92 Code: 8480-6 Heart Rate 1: 94 bpm Height: 6'2" SpO2: 97% Weight: 03/15/2017 Blood Pressure 1: 128/84 Code: 8480-6 Heart Rate 1: 90 bpm Respiratory Rate: 16 bpm SpO2: 96% Temperature: 36.3 (C) / 97.4 (F) Weight: 244 lbs 03/01/2017 Blood Pressure 1: 115/86 Code: 8480-6 Heart Rate 1: 93 bpm Respiratory Rate: 16 bpm SpO2: 97% Temperature: 37.1 (C) / 98.7 (F) Weight: 242 lbs 02/16/2017 Blood Pressure 1: 122/72 Code: 8480-6 BMI: 31.8 Code: 24323-0 Heart Rate 1: 85 bpm Height: 6'2" SpO2: 96% Temperature: 36.6 (C) / 97.9 (F) Weight: 248 lbs 02/12/2017 Blood Pressure 1: 126/76 Code: 8480-6 BMI: 31.8 Code: 72570-9 Heart Rate 1: 106 bpm Height: 6'2" SpO2: 91% Weight: 248 lbs 02/05/2017 Blood Pressure 1: 146/86 Code: 8480-6 BMI: 31.9 Code: 76524-4 Heart Rate 1: 98 bpm Height: 6'2" SpO2: 87% Temperature: 36.7 (C) / 98.0 (F) Weight: 248 lbs 8 oz 01/29/2017 Blood Pressure 1: 132/84 Code: 8480-6 BMI: 31.8 Code: 29529-2 Heart Rate 1: 83 bpm Height: 6'2" SpO2: 97% Weight: 248 lbs 10/13/2016 Blood Pressure 1: 128/72 Code: 8480-6 Heart Rate 1: 86 bpm SpO2: 94% 10/09/2016 Blood Pressure 1: 128/68 Code: 8480-6 Heart Rate 1: 136 bpm SpO2: 94% Temperature: 36.8 (C) / 98.2 (F) 10/06/2016 Blood Pressure 1: 140/80 Code: 8480-6 BMI: 32.1 Code: 80057-3 Heart Rate 1: 94 bpm Height: 6'2" SpO2: 95% Weight: 250 lbs 07/18/2016 Blood Pressure 1: 128/86 Code: 8480-6 BMI: 32.1 Code: 16765-0 Heart Rate 1: 89 bpm Height: 6'2" SpO2: 96% Weight: 250 lbs 06/22/2016 Blood Pressure 1: 118/70 Code: 8480-6 BMI: 32.1 Code: 71027-1 Heart Rate 1: 70 bpm Height: 6'2" SpO2: 97% Weight: 250 lbs 05/23/2016 Blood Pressure 1: 128/80 Code: 8480-6 BMI: 32.1 Code: 32999-4 Heart Rate 1: 76 bpm Height: 6'2" SpO2: 98% Weight: 250 lbs 05/15/2016 Blood Pressure 1: 110/90 Code: 8480-6 BMI: 31.3 Code: 17276-1 Heart Rate 1: 111 bpm Height: 6'2" SpO2: 97% Temperature: 36.6 (C) / 97.8 (F) Weight: 244 lbs 01/20/2016 Blood Pressure 1: 128/76 Code: 8480-6 BMI: 33.0 Code: 42242-1 Heart Rate 1: 103 bpm Height: 6'2" SpO2: 95% Weight: 257 lbs Functional Status No Functional Status data History of Present Illness Symptom Name Status Result Effective Date Notes Location on the left 04/03/2019 None Onset and Resolution sudden in onset 04/03/2019 None Onset of Symptom 1 days ago 04/03/2019 None Pertinent Findings stiffness 04/03/2019 None Pertinent Findings swelling 04/03/2019 None Pertinent Findings pain with movement 04/03/2019 None Quality sharp pain 04/03/2019 None Quality acute 04/03/2019 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 Severity moderate 04/03/2019 None Location in both ears 03/07/2019 None Quality ringing 03/07/2019 None Onset of Symptom 1 days ago [...] Denies dyspnea 02/17/2019 None _ cardiac disease 01/13/2019 None Onset of Symptom 2 weeks ago 01/13/2019 None Pertinent Findings Denies pain 01/13/2019 None Quality acute illness 01/13/2019 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 stent placed by Dr Brennan Severity moderate 01/13/2019 None Significant Medical Conditions acute illness 01/13/2019 None Mechanism of injury unknown 01/13/2019 None Alleviating Factors activity 01/13/2019 stent Location diffusely 12/31/2018 None Quality aching 12/31/2018 None Quality heavy 12/31/2018 None Quality constant 12/31/2018 None Onset and Resolution sudden in onset 12/31/2018 None Onset of Symptom 1 weeks ago 12/31/2018 None Onset of Symptom 1 weeks ago 12/31/2018 None Limitation on Activities moderately limits activities 12/31/2018 None Frequency of Episodes increasing 12/31/2018 None Triggers activity 12/31/2018 None Exacerbating Factors exertion 12/31/2018 None Location on the left side of on the chest 12/26/2018 None Radiating the left arm 12/26/2018 None Radiating the back 12/26/2018 None Quality aching 12/26/2018 None Pertinent Findings cough 12/26/2018 None Pertinent Findings Denies dyspnea 12/26/2018 None Quality acute 11/18/2018 None Quality intermittent 11/18/2018 None Quality productive 11/18/2018 None Onset and Resolution ongoing 11/18/2018 None [...] Findings sputum production 11/18/2018 None Quality productive 11/12/2018 None Onset and Resolution ongoing 11/12/2018 None Limitation on Activities moderately limits activities 11/12/2018 None Pertinent Findings chest discomfort 11/12/2018 feels tight Pertinent Findings dyspnea 11/12/2018 None Pertinent Findings Denies fever 11/12/2018 None Quality acute 11/12/2018 None Quality intermittent 11/12/2018 None Onset of Symptom ~2 months ago 11/12/2018 None Frequency of Episodes daily 11/12/2018 None Pertinent Findings sputum production 11/12/2018 None Pertinent Findings post nasal drip 11/12/2018 None Frequency of Episodes unchanged 11/12/2018 None Significant Medications albuterol 11/12/2018 None Triggers no known associated factors 11/12/2018 None Location in the throat 10/30/2018 None Quality productive 10/30/2018 None Onset and Resolution ongoing 10/30/2018 None [...] the right 10/23/2018 2nd MCP Quality throbbing 10/23/2018 cramping Onset and Resolution sudden in onset 10/23/2018 None Onset of Symptom 3 days ago 10/23/2018 None Frequency of Episodes daily 10/23/2018 None Limitation on Activities moderately limits activities 10/23/2018 None Severity moderate 10/23/2018 None Significant Medical Conditions diabetes mellitus 10/23/2018 None Pertinent Findings decreased range of motion 10/23/2018 None Pertinent Findings pain with movement 10/23/2018 None Pertinent Findings redness 10/23/2018 None Pertinent Findings swelling 10/23/2018 None Onset of Symptom onset as an adult 10/23/2018 None Quality insulin dependent 10/23/2018 None Quality chronic 10/23/2018 None Significant Medications insulin 10/23/2018 None Alleviating Factors medication 10/23/2018 None Exacerbating Factors diet 10/23/2018 None Nutrition regular diet 10/23/2018 None Pertinent Findings Denies dizziness 10/23/2018 None Quality chronic 10/23/2018 None Quality primary hypertension 10/23/2018 None Quality stable 10/23/2018 None Onset and Resolution ongoing 10/23/2018 None Onset of Symptom during adulthood 10/23/2018 None Blood Pressure Values not checking blood pressure at home 10/23/2018 None Alleviating Factors medication 10/23/2018 None Test results Pt checking blood glucose readings, did not bring results to clinic 10/23/2018 (Has been over 200 due to steroids and other medications) Glucose monitoring fasting 10/23/2018 and as needed Quality productive 10/23/2018 None Onset and Resolution ongoing 10/23/2018 None Quality acute 10/23/2018 None Quality intermittent 10/23/2018 None Frequency of Episodes daily 10/23/2018 None Onset of Symptom 1+ months ago 10/23/2018 None Pertinent Findings sputum production 10/23/2018 (milky white, green, blood specks) Pertinent Findings dyspnea 10/23/2018 None Frequency of Episodes unchanged 10/23/2018 None Pertinent Findings Denies edema 10/23/2018 None Significant Medications albuterol 10/23/2018 None Significant Medications steroids 10/23/2018 None Location on the right 10/21/2018 2nd MCP Quality throbbing 10/21/2018 cramping Onset and Resolution sudden in onset 10/21/2018 None Onset of Symptom 1 days ago 10/21/2018 None Frequency of Episodes daily 10/21/2018 None Pertinent Findings decreased range of motion 10/21/2018 None Pertinent Findings pain with movement 10/21/2018 None Pertinent Findings redness 10/21/2018 None Pertinent Findings swelling 10/21/2018 None Limitation on Activities moderately limits activities 10/21/2018 None Severity moderate 10/21/2018 None Significant Medical Conditions diabetes mellitus 10/21/2018 None Sports Participation not significant 10/21/2018 None Location on the right 10/17/2018 None Location in the throat 10/14/2018 None Quality productive 10/14/2018 None Onset and Resolution ongoing 10/14/2018 None [...] the throat 09/09/2018 None cough Quality dry 09/09/2018 None cough Onset and Resolution sudden in [...] the lung 06/28/2018 None cough Quality acute 06/28/2018 None cough Pertinent Findings dyspnea 06/28/2018 None [...] blood glucose at home, see scanned readings 03/07/2018 None diabetes mellitus Glucose monitoring daily 03/07/2018 [...] left sole 01/29/2018 None sores Quality acute 01/29/2018 None sores Quality worsening 01/29/2018 None sores [...] the back 07/26/2017 None rash Color red 07/26/2017 None rash Onset and Resolution sudden in [...] the larynx 03/15/2017 None cough Quality dry 03/15/2017 None cough Onset and Resolution resolved 03/15/2017 None cough Onset of Symptom 1 months ago 03/15/2017 None cough Limitation on Activities does not limit activities 03/15/2017 None cough Frequency of Episodes decreasing 03/15/2017 None cough Triggers known allergens 03/15/2017 lisinopril cough Location in the throat 03/01/2017 None cough Quality chronic 03/01/2017 None cough Quality dry 03/01/2017 None cough Onset and Resolution ongoing 03/01/2017 [...] the throat 02/16/2017 None cough Quality acute 02/16/2017 None cough Onset and Resolution sudden in [...] right arm 01/20/2016 None rash Quality new 01/20/2016 None rash Color red 01/20/2016 None rash Onset and Resolution sudden in onset 01/20/2016 None rash Onset of Symptom 1 days ago 01/20/2016 None rash Alleviating Factors no alleviating factors 01/20/2016 None rash Pertinent Findings itching 01/20/2016 None Advance Directives No Advance Directive data Encounters Encounter Performer Location Codes ([id number]) [id number] EST. PATIENT, LEVEL III Diagnosis: Pain in left finger(s)[ICD10: M79.645] Diagnosis: Pain in left hand[ICD10: M79.642] Diagnosis: Contusion of left hand, initial encounter[ICD10: S60.222A] Diagnosis: Nasal congestion[ICD10: R09.81] Diagnosis: Headache[ICD10: R51] Melida Ha MD, [facility] CPT-4: 02407 04/03/2019 ([id number]) [id number] EST. PATIENT, LEVEL III Diagnosis: Essential (primary) hypertension[ICD10: I10] Marcela Ha MD [facility] CPT-4: 47229 03/07/2019 ([id number]) 18504 EST. PATIENT, LEVEL III Diagnosis: Hypotension due to drugs[ICD10: I95.2] Marcela Ha MD [facility] CPT-4: 59153 02/27/2019 ([id number]) 27945 EST. PATIENT, LEVEL III Diagnosis: Hypotension due to drugs[ICD10: I95.2] Diagnosis: Other fatigue[ICD10: R53.83] Marcela Ha MD [facility] CPT-4: 97800 02/17/2019 ([id number]) 10004 EST. 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 PATIENT, LEVEL IV Diagnosis: Type 2 diabetes mellitus with hyperglycemia[ICD10: E11.65] Diagnosis: Epigastric pain[ICD10: R10.13] Diagnosis: Pain in joints of right hand[ICD10: M25.541] Diagnosis: Shortness of breath[ICD10: R06.02] Marcela Ha MD, [facility] CPT- 4: 71745 12/31/2018 40458 EST. PATIENT, LEVEL III Diagnosis: Other chest pain[ICD10: R07.89] Diagnosis: Cough[ICD10: R05] Madeline Ha MD, [facility] CPT-4: 29515 12/26/2018 ([id number]) 95972 EST. PATIENT, LEVEL III Diagnosis: Cough[ICD10: R05] Melida Ha MD, [facility] CPT-4: 39210 11/18/2018 ([id number]) 43905 EST. PATIENT, LEVEL III Diagnosis: Cough[ICD10: R05] Diagnosis: Pneumonia due to other Gram-negative bacteria[ICD10: J15.6] Marcela Ha MD, [facility] CPT-4: 35208 11/12/2018 ([id number]) 60161 EST. PATIENT, LEVEL III Diagnosis: Pneumonia due to other Gram-negative bacteria[ICD10: J15.6] Diagnosis: Cough[ICD10: R05] Melida Ha MD, [facility] CPT-4: 62751 10/30/2018 ([id number]) 67409 EST. PATIENT, LEVEL II Diagnosis: Pain in joints of right hand[ICD10: M25.541] Diagnosis: Trigger finger, right middle finger[ICD10: M65.331] Marcela Ha MD, [facility] CPT-4: 50714 10/24/2018 ([id number]) 25284 EST. PATIENT, LEVEL IV Diagnosis: Essential (primary) hypertension[ICD10: I10] Diagnosis: Type 2 diabetes mellitus with foot ulcer[ICD10: E11.621] Melida Ha MD, [facility] CPT-4: 87828 10/23/2018 ([id number]) 49062 EST. PATIENT, LEVEL III Diagnosis: Cellulitis of right finger[ICD10: L03.011] Diagnosis: Type 2 diabetes mellitus with foot ulcer[ICD10: E11.621] Diagnosis: Pain in right hand[ICD10: M79.641] Melida Ha MD, [facility] CPT- 4: 55179 10/21/2018 01668 EST. PATIENT, LEVEL III Diagnosis: Spontaneous ecchymoses[ICD10: R23.3] Diagnosis: Cellulitis of right lower limb[ICD10: L03.115] Diagnosis: Cellulitis of left lower limb[ICD10: L03.116] Madeline Ha MD, [facility] CPT-4: 96957 10/17/2018 ([id number]) 03854 EST. PATIENT, LEVEL III Diagnosis: Cough[ICD10: R05] Diagnosis: Acute bronchitis, unspecified[ICD10: J20.9] Melida Ha MD, [facility] CPT-4: 31141 10/14/2018 90290 EST. PATIENT, LEVEL III Diagnosis: Acute laryngopharyngitis[ICD10: J06.0] Diagnosis: Cough[ICD10: R05] Madeline Ha MD, [facility] CPT-4: 55605 09/30/2018 ([id number]) 67537 EST. PATIENT, LEVEL III Diagnosis: Acute recurrent maxillary sinusitis[ICD10: J01.01] Diagnosis: Cough[ICD10: R05] Diagnosis: Type 2 diabetes mellitus with hyperglycemia[ICD10: E11.65] Marcela Ha MD, [facility] CPT-4: 33074 09/09/2018 ([id number]) 72959 EST. PATIENT, LEVEL IV Diagnosis: Essential (primary) hypertension[ICD10: I10] Diagnosis: Mixed hyperlipidemia[ICD10: E78.2] Diagnosis: Bipolar disorder, current episode depressed, moderate[ICD10: F31.32] Diagnosis: Type 2 diabetes mellitus with other specified complication[ICD10: E11.69] Melida Ha MD, [facility] CPT-4: 72743 07/22/2018 ([id number]) 14340 EST. PATIENT, LEVEL III Diagnosis: Insomnia due to medical condition[ICD10: G47.01] Marcela Ha MD, [facility] CPT-4: 98031 07/16/2018 ([id number]) Miscellaneous no charge Diagnosis: Cough[ICD10: R05] Madeline Ha MD, [facility] CPT-4: 02567 07/01/2018 85892 EST. PATIENT, LEVEL III Diagnosis: Cough[ICD10: R05] Diagnosis: Acute laryngopharyngitis[ICD10: J06.0] Diagnosis: Other allergic rhinitis[ICD10: J30.89] Madeline Ha MD, [facility] CPT- 4: 02674 06/28/2018 ([id number]) 40629 EST. PATIENT, LEVEL IV Diagnosis: Type 2 diabetes mellitus with hyperglycemia[ICD10: E11.65] Diagnosis: Essential (primary) hypertension[ICD10: I10] Melida Ha MD, [facility] CPT-4: 67661 06/18/2018 ([id number]) 40048 EST. PATIENT, LEVEL IV Diagnosis: Type 2 diabetes mellitus with hyperglycemia[ICD10: E11.65] Diagnosis: Essential (primary) hypertension[ICD10: I10] Diagnosis: Localized edema[ICD10: R60.0] Melida Ha MD, [facility] CPT-4: 69669 06/04/2018 ([id number]) 00921 EST. PATIENT, LEVEL III Diagnosis: Type 2 diabetes mellitus with hyperglycemia[ICD10: E11.65] Diagnosis: Myalgia[ICD10: M79.1] Diagnosis: Pain in right hip[ICD10: M25.551] Diagnosis: Pain in left hip[ICD10: M25.552] Marcela Ha MD, [facility] CPT- 4: 59288 05/13/2018 ([id number]) 70851 EST. PATIENT, LEVEL III Diagnosis: Myalgia[ICD10: M79.1] Diagnosis: Pain in right hip[ICD10: M25.551] Diagnosis: Pain in left hip[ICD10: M25.552] Marcela Ha MD, [facility] CPT- 4: 19858 05/02/2018 ([id number]) 49315 EST. PATIENT, LEVEL IV Diagnosis: Essential (primary) hypertension[ICD10: I10] Diagnosis: Type 2 diabetes mellitus with hyperglycemia[ICD10: E11.65] Diagnosis: Major depressive disorder, single episode, moderate[ICD10: F32.1] Diagnosis: Myalgia[ICD10: M79.1] Marcela Ha MD, [facility] CPT-4: 11845 04/29/2018 ([id number]) 22788 EST. PATIENT, LEVEL IV Diagnosis: Type 2 diabetes mellitus with hyperglycemia[ICD10: E11.65] Diagnosis: Essential (primary) hypertension[ICD10: I10] Diagnosis: Major depressive disorder, single episode, moderate[ICD10: F32.1] Melida Ha MD, [facility] CPT-4: 14563 03/13/2018 ([id number]) 14731 EST. PATIENT, LEVEL III Diagnosis: Type 2 diabetes mellitus with hyperglycemia[ICD10: E11.65] Diagnosis: Bipolar disorder, current episode depressed, moderate[ICD10: F31.32] Diagnosis: Orthostatic hypotension[ICD10: I95.1] Marcela Ha MD, [facility] CPT-4: 71261 03/07/2018 ([id number]) 03489 EST. PATIENT, LEVEL IV Diagnosis: Type 2 diabetes mellitus with hyperglycemia[ICD10: E11.65] Diagnosis: Major depressive disorder, single episode, moderate[ICD10: F32.1] Diagnosis: Orthostatic hypotension[ICD10: I95.1] Diagnosis: Other fatigue[ICD10: R53.83] Marcela Ha MD, [facility] CPT-4: 82419 02/28/2018 12452 EST. PATIENT, LEVEL IV Diagnosis: Other fatigue[ICD10: R53.83] Diagnosis: Other malaise[ICD10: R53.81] Diagnosis: Gastro-esophageal reflux disease without esophagitis[ICD10: K21.9] Madeline Ha MD, [facility] CPT-4: 88351 02/13/2018 ([id number]) 81116 EST. PATIENT, LEVEL IV Diagnosis: Type 2 diabetes mellitus with foot ulcer[ICD10: E11.621] Diagnosis: Essential (primary) hypertension[ICD10: I10] Diagnosis: Gastro-esophageal reflux disease without esophagitis[ICD10: K21.9] Marcela Ha MD, [facility] CPT-4: 62709 01/29/2018 50134 EST. PATIENT, LEVEL III Diagnosis: Other malaise[ICD10: R53.81] Diagnosis: Other fatigue[ICD10: R53.83] Diagnosis: Pain in right shoulder[ICD10: M25.511] Diagnosis: Pain in left shoulder[ICD10: M25.512] Madeline Ha MD, [facility] CPT- 4: 85955 08/27/2017 ([id number]) 56791 EST. PATIENT, LEVEL IV Diagnosis: Essential (primary) hypertension[ICD10: I10] Diagnosis: Type 2 diabetes mellitus with hyperglycemia[ICD10: E11.65] Diagnosis: VACCIN FOR INFLUENZA[ICD10: Z23] Melida Ha MD, [facility] CPT-4: 51717 08/16/2017 98075 EST. PATIENT, LEVEL III Diagnosis: Zoster without complications[ICD10: B02.9] Madeline Ha MD, [facility] CPT-4: 85048 07/26/2017 ([id number]) 88301 EST. PATIENT, LEVEL III Diagnosis: Cellulitis of right lower limb[ICD10: L03.115] Marcela Ha MD, [facility] CPT-4: 12972 07/03/2017 84864 EST. PATIENT, LEVEL II Diagnosis: Laceration without foreign body of left forearm, initial encounter[ICD10: S51.812A] Marcela Ha MD [facility] CPT-4: 89049 06/29/2017 ([id number]) 28227 EST. PATIENT, LEVEL III Diagnosis: Cellulitis of right lower limb[ICD10: L03.115] Diagnosis: Type 2 diabetes mellitus with foot ulcer[ICD10: E11.621] Marcela Ha MD, [facility] CPT-4: 92917 06/18/2017 ([id number]) 99358 EST. PATIENT, LEVEL IV Diagnosis: Cellulitis of right lower limb[ICD10: L03.115] Diagnosis: Acute laryngopharyngitis[ICD10: J06.0] Diagnosis: Gastro-esophageal reflux disease without esophagitis[ICD10: K21.9] Marcela Ha MD [facility] CPT-4: 19651 06/07/2017 ([id number]) 46004 EST. PATIENT, LEVEL III Diagnosis: Type 2 diabetes mellitus with hyperglycemia[ICD10: E11.65] Diagnosis: Insect bite (nonvenomous) of abdominal wall, initial encounter[ICD10: S30.861A] Marcela Ha MD [facility] CPT-4: 34668 05/17/2017 ([id number]) 28275 EST. PATIENT, LEVEL III Diagnosis: Allergic contact dermatitis due to plants, except food[ICD10: L23.7] Melida Ha MD, [facility] CPT-4: 81188 05/04/2017 ([id number]) 12666 EST. PATIENT, LEVEL III Diagnosis: Essential (primary) hypertension[ICD10: I10] Marcela Ha MD, [facility] CPT-4: 24143 03/15/2017 ([id number]) 94495 EST. PATIENT, LEVEL III Diagnosis: Cough[ICD10: R05] Diagnosis: Essential (primary) hypertension[ICD10: I10] Marcela Ha MD, [facility] CPT-4: 86330 03/01/2017 ([id number]) 93032 EST. PATIENT, LEVEL III Diagnosis: Cough[ICD10: R05] Diagnosis: Nasal congestion[ICD10: R09.81] Diagnosis: Acute recurrent maxillary sinusitis[ICD10: J01.01] Marcela Ha MD [facility] CPT-4: 34054 02/16/2017 ([id number]) 37462 EST. PATIENT, LEVEL III Diagnosis: Type 2 diabetes mellitus with hyperglycemia[ICD10: E11.65] Marcela Ha MD [facility] CPT-4: 83594 02/12/2017 ([id number]) 15325 EST. PATIENT, LEVEL IV Diagnosis: Type 2 diabetes mellitus with hyperglycemia[ICD10: E11.65] Diagnosis: Muscle weakness (generalized)[ICD10: M62.81] Diagnosis: Disorientation, unspecified[ICD10: R41.0] Marcela Ha MD [facility] CPT-4: 93281 02/05/2017 ([id number]) Patient admitted to the hospital from clinic (NO CHARGE) Diagnosis: Type 2 diabetes mellitus with hyperglycemia[ICD10: E11.65] Diagnosis: Disorientation, unspecified[ICD10: R41.0] Diagnosis: Muscle weakness (generalized)[ICD10: M62.81] Marcela Ha MD, [facility] CPT-4: 63185X 01/29/2017 ([id number]) Miscellaneous no charge Diagnosis: Cellulitis of right lower limb[ICD10: L03.115] Marcela Ha MD, [facility] CPT-4: 26075 10/13/2016 ([id number]) Miscellaneous no charge Diagnosis: Type 2 diabetes mellitus with foot ulcer[ICD10: E11.621] Diagnosis: Pain in right foot[ICD10: M79.671] Marcela Ha MD, [facility] CPT- 4: 61964 10/09/2016 54453 EST. PATIENT, LEVEL II Diagnosis: Cellulitis of right lower limb[ICD10: L03.115] Marcela Ha MD [facility] CPT-4: 97210 10/06/2016 ([id number]) 29355 EST. PATIENT, LEVEL IV Diagnosis: Low back pain[ICD10: M54.5] Diagnosis: Other deformities of toe(s) (acquired), left foot[ICD10: M20.5X2] Diagnosis: Type 2 diabetes mellitus with foot ulcer[ICD10: E11.621] Marcela Ha MD, [facility] CPT-4: 12111 07/18/2016 ([id number]) 48802 EST. PATIENT, LEVEL III Diagnosis: Type 2 diabetes mellitus with hyperglycemia[ICD10: E11.65] [facility] CPT-4: 14861 06/22/2016 ([id number]) 99009 EST. PATIENT, LEVEL IV Diagnosis: Type 2 diabetes mellitus with hyperglycemia[ICD10: E11.65] Diagnosis: Mixed hyperlipidemia[ICD10: E78.2] Diagnosis: Other hemoglobinopathies[ICD10: D58.2] [facility] CPT-4: 27817 05/23/2016 ([id number]) 06048 EST. PATIENT, LEVEL IV Diagnosis: Type 2 diabetes mellitus with other specified complication[ICD10: E11.69] Diagnosis: Dehydration[ICD10: E86.0] Marcela Ha MD, [facility] CPT-4: 87721 05/15/2016 ([id number]) OFFICE VISIT, NEW - LEVEL 3 Diagnosis: Allergic contact dermatitis due to plants, except food[ICD10: L23.7] Madeline Ha MD, [facility] CPT-4: 13473 01/20/2016 Plan of Care Planned Activity Notes Codes Status Date Visit Plan: Left hand pain - xray of hand obtained today - use tylenol for pain control and we will call when the xray reports are back - meanwhile supportive care of the hand until xrays are obtained. Headaches - due to muscle contracture - advised heat and muscle rub to the neck and pt to decrease topamax to taper off of the medication. Use OTC allergy medication for sinus congestion. 04/03/2019 Patient Education: Patient Medication Summary Completed 04/03/2019 Care Plan: X-RAY EXAM OF HAND LOINC : 39774-7 Pending 04/03/2019 Appointment: Marcela Oshea WPtel: [address] [place], [place] [phone] (30 min) Complex 03/14/2019 Visit Plan: HTN -heart rate not well controlled -decrease valsartan -start metoprolol 25mg daily -return next week for blood pressure check -10 days for appt -discussed scheduling f/u appt with Dr Brennan as well -patient verbalized understanding of plan. 03/07/2019 Appointment: Marcela Oshea WPtel: [address] [place], [place] [phone] (30 min) Complex 03/07/2019 Patient Education: Patient Medication Summary Completed [...] of cymbalta- go back to 30mg daily - monitor symptoms and call with any concerns 02/27/2019 Appointment: Marcela Oshea WPtel: [address] [place], [place] [phone] [place] [address] (30 min) Complex 02/27/2019 Patient Education: Patient Medication Summary Completed 02/27/2019 Visit Plan: Orthostasis -decrease coreg -monitor symptoms and follow up in 10 days- sooner if needed Fatigue-check labs 02/17/2019 Appointment: Marcela Oshea WPtel: [address] [place], [place] [phone] [place] [address] (30 min) Complex 02/17/2019 Patient Education: Patient Medication Summary Completed 02/17/2019 Appointment: Marcela Oshea WPtel: [address] [place], [place] [phone] [place] [address] (30 min) Complex 01/14/2019 Visit Plan: Hypertension [...] Summary Completed 01/13/2019 Appointment: Marcela Oshea WPtel: [address] [place], [place] [phone] [place] [address] (30 min) Complex 01/10/2019 Visit Plan: Epigastric pain -start protonix daily- monitor symptoms Chest pain -work up negative done last week with Madeline-recommend appt with Dr Brennan Joint pain-check inflammation makers DM-check Hgb a1c 12/31/2018 Appointment: Marcela Oshea WPtel: [phone] [phone] [place] (15 min) Moderate 12/31/2018 Patient Education: Patient Medication Summary Completed 12/31/2018 Visit Plan: chest pain - EKG and cardiac enzymes OK - discussed with Dr. Ha - will treat for pneumonia - pt is to notify clinic if symptoms do not improve, if they worsen, or with any changes questions, or concerns. 12/26/2018 Appointment: Madeline Kennedy WPtel: [phone] [phone] (30 min) Complex 12/26/2018 Patient Education: Patient Medication Summary Completed 12/26/2018 Referral: Andrew Cross Patient informed. Referral info faxed. Completed 11/26/2018 Visit Plan: cough - improved - continue with inhalers - continue with symbicort - rx for proair for PRN use when pt is feelign short of breath with activity. 11/18/2018 Appointment: Melida Ha WPtel: [facility] (15 min) Moderate 11/18/2018 Patient [...] of plan. 11/12/2018 Appointment: Marcela Oshea WPtel: [address] [place], [place] [phone] (30 min) Complex 11/12/2018 Patient Education: Patient Medication Summary Completed 11/12/2018 Patient Education: Symbicort - 18-64 - eCopay Completed 11/12/2018 Care Plan: Referral Order SNOMED-CT : 433498155 Pending 11/12/2018 Referral: Niko Mantilla Referral Completed 11/04/2018 Visit Plan: Pneumonia, cough - recent diagnosis of Moraxella Cattharalis - with sensitivity to levaquin - will give 2 wks of levaquin since he had improvement but no full resolution of symptoms. 10/30/2018 Appointment: Melida Ha WPtel: [address] [place], [place] [phone] 30 min appointments only in this slot 10/30/2018 Patient Education: Patient Medication Summary Completed 10/30/2018 Visit Plan: Right hand-joint pain and swelling -negative for gout -treated for cellulitis right 2nd mcp joint -now having difficulty with long finger "locking" -Dr Ha in to evaluate patient and tape index and long finger in place-refer to Dr Mantilla for evaluation 10/24/2018 Appointment: Marcela Oshea WPtel: [facility]4 [phone] (30 min) Complex 10/24/2018 Patient Education: Patient Medication Summary Completed 10/24/2018 Care Plan: Referral Order SNOMED-CT : 440382608 Pending 10/24/2018 Visit Plan: Hypotension - discussed [...] controlled. 10/23/2018 Appointment: [phone] (15 min) Moderate 10/23/2018 Patient [...] plan. 10/21/2018 Appointment: Marcel[facility] Oshe[facility]Ptel[phone] [place] (30 min) Complex 10/21/2018 Patient Education: [...] discharge. 10/17/2018 Appointment: Madeline Kennedy WPtel: [phone] [facility]66[facility] (15 min) Moderate 10/17/2018 Patient Education: [...] worsen. 10/14/2018 Appointment: Marcela Oshea WPtel: [phone] [phone] (15 min) Moderate 10/14/2018 Patient Education: Patient Medication Summary Completed 10/14/2018 Care Plan: CHEST X-RAY 2VW FRONTAL&LATL LOINC : 42969-9 Pending 10/14/2018 Visit Plan: URI - Pt [...] spray. 09/30/2018 Appointment: Madeline Kennedy WPtel: [phone] [phone] (15 min) Moderate 09/30/2018 Patient Education: Patient Medication Summary Completed 09/30/2018 Appointment: Nurse Visit 09/12/2018 Appointment: Injection 09/11/2018 Patient Education: Patient Medication Summary Completed 09/11/2018 Visit Plan: Sinusitis - Pt has acute infection - pain in face, maxillary region, Pt informed to use decongestant, RX given to patient, sinus rinses also recommended. Call if symptoms do not show improvement. DM-check Hgb A1C 09/09/2018 Appointment: Marcela Oshea WPtel: [facility]5 [phone] (15 min) Moderate 09/09/2018 Patient Education: Patient Medication Summary Completed 09/09/2018 Patient Education: Patient Medication Summary Completed 09/06/2018 Patient Education: Cholesterol Management Completed 09/06/2018 Care Plan: Comp Metabolic Pending 09/06/2018 Care Plan: Cbc With Differential Pending 09/06/2018 Care Plan: %Hba1C LOINC : 29738-2 Pending 09/06/2018 Care Plan: Tsh Pending 09/06/2018 Care Plan: Lipid Pending 09/06/2018 Appointment: Marcela Oshea WPtel: [address] [place], [place] [phone] [place] (15 min) Moderate 08/26/2018 Appointment: Marcela Oshea WPtel: [facility]5 [phone] (15 min) Moderate 08/23/2018 Visit [...] and to assure normal liver response to me dications. Bipolar Mood disorder - supportive care and continue with Cymbalta. Flu shot given today in clinic. 07/22/2018 Appointment: Melida Ha [facility]el[phone] (15 min) Moderate 07/22/2018 Patient [...] napping worsens night time insomnia. 07/16/2018 Appointment: Marecla Oshea WPtel: [phone] (30 min) Complex 07/16/2018 Patient Education: Patient Medication Summary Completed 07/16/2018 Visit Plan: cough - improved - notify clinic if symptoms do not completely resolve, or with any questions or concerns. 07/01/2018 Appointment: Madeline Kennedy WPtel: [phone] (15 min) Moderate 07/01/2018 Patient Education: Patient [...] spray. 06/28/2018 Appointment: Madeline Kennedy WPtel: [phone] [facility] (15 min) Moderate 06/28/2018 Patient Education: Patient Medication Summary Completed 06/28/2018 Patient Education: Patient Medication Summary Completed 06/21/2018 Care Plan: Annabel RICKS [place] Pending 06/21/2018 Visit Plan: Diabetes Mellitus - [...] home. 06/18/2018 Appointment: Melida Ha WPtel: [phone] [facility] (15 min) Moderate 06/18/2018 Patient [...] improves. 06/04/2018 Appointment: Melida Ha WPtel: [phone] [phone] (15 min) Moderate 06/04/2018 Patient [...] allow for greater blood glucose control. Joint stvb-ykdbzmky-mehfilg-symptoms have improved -stop meloxicam due to upset stomach-call if symptoms return 05/13/2018 Appointment: Marcela Oshea WPtel: [phone] [phone] (30 min) Complex 05/13/2018 Patient Education: Patient Medication Summary Completed 05/13/2018 Visit Plan: Bilateral hip gwlp-cgsasguj-rbbjajm IM injection administered today for c/o continued myalgia/arthralgia. Patient to start taking Meloxicam 15mg PO daily. Advised to return to clinic if symptoms do not improve. 05/02/2018 Appointment: Marcela Oshea WPtel: [phone] [phone] (30 min) Complex 05/02/2018 Patient [...] readings at home. Diabetes Mellitus -check labs Zshochxo-ssgjdui-bmuy bite-rx for doxycycline-follow up in 2 weeks 04/29/2018 Appointment: Marcela Oshea WPtel: [phone] [phone] (15 min) Moderate 04/29/2018 Patient Education: Patient Medication Summary Completed 04/29/2018 Appointment: Melida Ha WPtel: [phone] [facility] [place] (15 min) Moderate 04/15/2018 Appointment: Marcela Oshea WPtel: [phone] [phone] [place] (30 min) Complex 03/21/2018 Visit Plan: [...] cymbalta 03/13/2018 Appointment: Melida Ha WPtel: [phone] [facility] [place] (30 min) Complex 03/13/2018 Patient Education: Patient Medication Summary Completed 03/13/2018 Visit Plan: DM-continue same medications-monitor blood sugars routinely as directed -rx for new glucometer and test strips provided Bipolar- currently depressed-patient start on vraylar-follow up in 2 weeks, sooner if needed. Patient and verbalied understanding of plan. Hypotension-stay off losartan 03/07/2018 Appointment: Marcela Oshea WPtel: [phone] [phone] (30 min) Complex 03/07/2018 Patient Education: Patient Medication Summary Completed 03/07/2018 Appointment: Melida Ha [facility]Ptel: [phone] (15 min) Moderate 03/04/2018 Visit [...] patient. 02/28/2018 Appointment: Marcela Oshea WPtel: [phone] [phone] [place] (30 min) Complex 02/28/2018 Patient Education: [...] Appointment: Madeline Kennedy [facility]Ptel: [phone] (15 min) Moderate 02/13/2018 Patient Education: Patient Medication Summary Completed 02/13/2018 Referral: Sun Glynn Patient informed. Referral info faxed. Completed 02/01/2018 Visit Plan: DM-weight loss-not checking blood sugars-patient sent for labs today HTN-low pxdwl-klzjgdw-nwlgq labs Callus of foot and fissue of heel-refer to Dr Glynn for evaluation Esophageal Reflux - the patient has been counseled against excessive intake of caffeine, spicy foods, peppermint, and cinnamon - all of which can exacerbate esophageal reflux. The patient is to take medications as prescribed and call the office if the symptoms are not improving. 01/29/2018 Appointment: Marcela Oshea WPtel: [phone] [place] (30 min) Complex 01/29/2018 Patient Education: Patient Medication Summary Completed 01/29/2018 Care Plan: Comp Metabolic Cancelled 01/29/2018 Care Plan: Cbc With Differential Cancelled 01/29/2018 Care Plan: %Hba1C LOINC : 71818-7 Cancelled 01/29/2018 Care Plan: Referral Order SNOMED-CT : [id number] Cancelled 01/29/2018 Visit Plan: Fatigue, malaise, joint [...] or concerns. 08/27/2017 Appointment: [phone] [place] (15 min) Moderate 08/27/2017 Patient Education: [...] - 08/16/2017 Appointment: Melida Ha WPtel: [phone] [phone] (30 min) Complex 08/16/2017 Patient Education: Patient Medication Summary Completed 08/16/2017 Patient Education: Obesity Completed 08/16/2017 Appointment: Madeline Kennedy WPtel: [phone] (30 min) Complex 08/07/2017 Visit Plan: Shingles [...] contagious. 07/26/2017 Appointment: Mad[facility] Kennedy [facility]el: [phone] [place] (15 min) Moderate 07/26/2017 Patient Education: Patient Medication Summary Completed 07/26/2017 Visit Plan: Cellulitis right foot-cultured today in the office- home health to reapply wound vac--appt with wound care on to evaluate for debridement- 07/03/2017 Appointment: Marcela Oshea WPtel: [phone] [phone] [place] (30 min) Complex 07/03/2017 Patient Education: Patient Medication Summary Completed 07/03/2017 Visit Plan: Abrasion left arm - Pt was instructed to keep the wound clean, wash with antibacterial soap, use triple antibiotic ointment, call if redness, pustular drainage, or any other acute concerns. 06/29/2017 Appointment: Marcela Oshea WPtel: [address] [place], [place] [phone] (15 min) Moderate 06/29/2017 Patient Education: Patient [...] of plan. 06/18/2017 Appointment: Marcela Oshea WPtel: [address] [place], [place] [phone] (15 min) Moderate 06/18/2017 Patient Education: Patient Medication Summary Completed 06/18/2017 Visit Plan: Cellulitis - culture of wound today-start abx and directed, call for acute change in symptoms, worsening redness, warmth, discharge. Sore throat-strep swab-chloraseptic spray-add prilosec twice daily fo r acid reflux symptoms GERD-low spice, low fat diet-start prilosec 06/07/2017 Visit Plan: Cellulitis - culture of wound today-start abx and directed, call for acute change in symptoms, worsening redness, warmth, discharge. Sore throat-strep swab-chloraseptic spray-add prilosec twice daily fo r acid reflux symptoms GERD-low spice, low fat diet-start prilosec 06/07/2017 Appointment: Marcela Oshea WPtel: [phone] (10 min) Simple 06/07/2017 Patient [...] bite-continue doxycycline 05/17/2017 Appointment: Marcela Oshea WPtel: [facility]3 [phone] (30 min) Complex 05/17/2017 Patient Education: Patient [...] [facility]. 05/04/2017 Appointment: Marcela Oshea WPtel: [address] [place], [place] [phone] (30 min) Complex 05/04/2017 Patient Education: Patient [...] home. Cough-resolved 03/15/2017 Appointment: Marcela Oshea WPtel: [phone] (15 min) Moderate 03/15/2017 Patient Education: Patient Medication Summary Completed 03/15/2017 Appointment: Marcela Oshea WPtel: [address] [place], [place] [phone] (30 min) Complex 03/12/2017 Visit Plan: Feng [...] alert any close contacts as to illness. Sinusitis- kenalog and rocephin injections today in the office-monitor symptoms and call if symptoms do not resolve-start augmentin if needed as discussed 02/16/2017 Appointment: Marcela Oshea WPtel: [facility]6 [phone] (15 min) Moderate 02/16/2017 Patient [...] less controlled. 02/12/2017 Appointment: Marcela Oshea WPtel: [facility]8 [phone] (30 min) Complex 02/12/2017 Patient Education: Patient Medication Summary Completed 02/12/2017 Appointment: Marcela Oshea WPtel: [phone] (30 min) Complex 02/06/2017 Visit Plan: Diabetes [...] readings are starting to become less controlled. Lufxvdvkv-vbniixeb-zgluioxo to monitor Generalized weakness-refer for PT-patient refuses today but will consider 02/05/2017 Appointment: Marcela Oshea WPtel: [address] [place], [place] [phone] [place] (30 min) Complex 02/05/2017 Patient Education: Patient Medication Summary Completed 02/05/2017 Appointment: Marcela Oshea WPtel: [address] [place], [place] [phone] [place] (30 min) Complex 01/30/2017 Visit Plan: Acute confusion-uncontrolled diabetes-chronically noncompliant with treatment and stopped his insulin several months ago-r/o stroke vs DKA-Dr Ha in to evaluate patient-plan to admit for further work up and treatment-patient's called and she transported him to the hospital 01/29/2017 Appointment: Marcela Oshea WPtel: [address] [place], [place] [phone] [place] (30 min) Complex 01/29/2017 Patient Education: Patient Medication Summary Completed 01/29/2017 Patient Education: Obesity Completed 01/29/2017 Visit Plan: Right foot pain-MRI shows foreign body-appt with Dr Grewal for evaluation on Sunday. 10/13/2016 Appointment: Marcela Oshea WPtel: [facility]5 [phone] [place] (15 min) Moderate 10/13/2016 Patient Education: Patient Medication Summary Completed 10/13/2016 Appointment: Marcela Oshea WPtel: [address] [place], [place] [phone] [place] (30 min) Complex 10/12/2016 Visit Plan: Right foot nnxh-exgwurul-danmj washer dropped on foot-xray negative but pain continues to increase-recommend MRI of foot for further evaluation-refer to wound care for lesions on right foot, patient has diabetes and history of osteomyelitis-culture obtained today-continue oral abx- follow up in the office on , sooner if needed 10/09/2016 Visit Plan: Right foot tbpe-sqblbxhe-drucb washer dropped on foot-xray negative but pain continues to increase-recommend MRI of foot for further evaluation-refer to wound care for lesions on right foot, patient has diabetes and history of osteomyelitis-culture obtained today-continue oral abx- follow up in the office on , sooner if needed 10/09/2016 Visit Plan: Right foot pxtb-yrcmpnrd-kdcpm washer dropped on foot-xray negative but pain continues to increase-recommend MRI of foot for further evaluation-refer to wound care for lesions on right foot, patient has diabetes and history of osteomyelitis-culture obtained today-continue oral abx- follow up in the office on , sooner if needed 10/09/2016 Appointment: Marcela Oshea WPtel: [facility]7 [phone] (30 min) Complex 10/09/2016 Patient Education: Patient Medication Summary Completed 10/09/2016 Visit Plan: Cellulitis - continue with oral antibiotics as previously directed, return to clinic as previously directed, call for acute change in symptoms, worsening redness, warmth, discharge. 10/06/2016 Appointment: Marcela Oshea WPtel: [address] [place], [place] [phone] (10 min) Simple 10/06/2016 Patient Education: Patient Medication Summary Completed 10/06/2016 Appointment: Marcela Oshea WPtel: [address] [place], [place] [phone] (30 min) Complex 08/24/2016 Referral: Sun Glynn Referral Completed 07/21/2016 Visit Plan: Low back pain- history of spinal fusion-patient for xray lumbar spine-RX sent to [facility] and instructed on use- topical voltaren samples provided and instructed on use. Ok to use tylenol as n eeded as well. The patient is to call the office if the pain is worsening or does not improve. Pressure ulcer left 4th toe-refer to Dr Glynn for evaluation 07/18/2016 Appointment: Marcela Oshea WPtel: [facility]3 [phone] (30 min) Complex 07/18/2016 Patient Education: Patient Medication Summary Completed 07/18/2016 Patient Education: Obesity Completed 07/18/2016 Care Plan: Referral Order SNOMED-CT : [id number] Cancelled 07/18/2016 Visit Plan: Diabetes Mellitus - [...] control. 06/22/2016 Appointment: Marcela Oshea WPtel: [phone] [phone] (30 min) Complex 06/22/2016 Patient Education: Patient [...] today 05/23/2016 Appointment: Marcela Oshea WPtel: [phone] [phone] (30 min) Complex 05/23/2016 Patient Education: Patient [...] of plan. 05/15/2016 Appointment: Marcela Oshea WPtel: [address] [place], [place] [phone] (15 min) Moderate 05/15/2016 Patient Education: Patient [...] dizziness, instructed patient to stop the coreg - monitor blood pressure and pulse and follow up [...] in pain, worsening redness, warmth, discharge. decrease topamax to one time daily x 1 week then every other day x 1 week then stop . Left hand pain - xray of hand obtained today - use tylenol for pain control and we will call when the xray reports are back - meanwhile supportive care of the hand until xrays are obtained. Headaches - due to muscle contracture - advised heat and muscle rub to the neck and pt to decrease topamax to taper off of the medication. Use OTC allergy medication for sinus congestion. REPEAT CBC Toujeo 10 units daily . [...] glucose readings are starting to become less co ntrolled. I have recommended for the patient to [...] voltaren gel ulcer left 4th toe-refer to trauma surgeon . Low back pain- history of spinal [...] for fracture from injury . Right foot jlgw-aacymvke-crgtj washer dropped on foot-xray negative but pain continues to increase-recommend MRI of foot for further evaluation-refer to wound care for lesions on right foot, patient has diabetes and history of osteomyelitis- culture obtained today-continue oral abx-follow up in the office on , sooner if needed continue oral antibiotic start using topical antibiotic ointment to scabbed areas and cover with dressing follow up , sooner if needed refer to wound care mri left foot due to increased pain -concern for fracture from injury . Right foot ubag-opdoewus-inphp washer dropped on foot-xray negative but pain continues to increase-recommend MRI of foot for further evaluation-refer to wound care for lesions on right foot, patient has diabetes and history of osteomyelitis- culture obtained today-continue oral abx-follow up in the office on , sooner if needed continue oral antibiotic start using topical antibiotic ointment to scabbed areas and cover with dressing follow up , sooner if needed refer to wound care mri left foot due to increased pain -concern for fracture from injury . Right foot hwmw-jxxqktea-kpfsl washer dropped on foot-xray negative but pain continues to increase-recommend MRI of foot for further evaluation-refer to wound care for lesions on right foot, patient has diabetes and history of osteomyelitis- culture obtained today-continue oral abx-follow up in the [...] if needed Fatigue-check labs . Bilateral hip qxgv-wkrvhrax-fuqfbrp IM injection administered today for c/o continued myalgia/arthralgia. Patient to start taking Meloxicam 15mg PO daily. Advised to return to clinic if symptoms do not improve. . DM-weight loss-not checking blood sugars-patient sent for labs today HTN-low olywb-gxokdti-xoajf labs Callus of foot and fissue of [...] readings are starting to become less controlled. 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 HTN -heart rate not well controlled -decrease valsartan -start metoprolol 25mg daily -return next week for blood pressure check -10 days for appt -discussed scheduling f/u appt with Dr Brennan as well -patient verbalized understanding of plan. STAY OFF LOSARTAN AND CHOLESTEROL MEDICATION FOR NOW . DM-continue same medications-monitor blood sugars routinely as [...] allow for greater blood glucose control. Joint gwgc-eoxaxdji-onhzsgj-symptoms have improved -stop meloxicam due to upset [...] readings at home. Diabetes Mellitus -check labs Lqgungse-hkedpkb-wwui bite-rx for doxycycline-follow up in 2 weeks [...]
--- OUTSIDE RECORDS SUMMARY | 2019-04-08 20:41 | XMS REPORT | CCD ---
Author Author Madeline Kennedy MD, [facility] Address [address] [place] [address] Phone Care Team Providers Care Team Foreman Name Role Phone PP Unavailable CCM Unavailable Summary Purpose Interface Exchange Insurance Providers Payer name Policy type / Coverage type Covered democrat ID Effective Begin Date Effective End Date Hand [email or web address] Commercial Insurance [id number] Unknown Family history Father Diagnosis Age At Onset Hyperlipidemia Unknown Heart Attack Unknown Mother Diagnosis Age At Onset Hypertension Unknown Social History Social History Element Codes Description Effective Dates Marital status Unknown Mignon 01/20/2016 Number of children Unknown 4 01/20/2016 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/[address]: 702842535 Never smoker 01/20/[address]: 131430953 Never drinks alcohol 01/20/2016 Allergies, Adverse Reactions, [...] Active 08/27/2017 Unknown 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 [...] ICD-10: L23.7 Active 01/19/2016 Unknown Nasal congestion ICD-9: 478.19 ICD-10: R09.81 Active 02/16/2017 Unknown Disorientation, [...] R53.83 08/27/2017 Active 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 [...] 692.6 ICD-10: L23.7 01/19/2016 Active Nasal congestion ICD-9: 478.19 ICD-10: R09.81 02/16/2017 Active Disorientation, unspecified [...] Fill Instructions Topamax 25 mg tablet RxNorm: 774017 1 Tablet(s) PO BID 03/11/2019 04/09/2019 Active Topamax 25 mg tablet RxNorm: 510493 1 Tablet(s) PO BID 03/11/2019 03/10/2019 Inactive valsartan 40 mg tablet RxNorm: 498391 1/2 Tablet(s) PO daily 03/07/2019 09/02/2019 Active metoprolol succinate ER 25 mg tablet,extended release 24 hr RxNorm: 664732 1 Tablet(s) PO QPM 03/07/2019 09/02/2019 Active Cymbalta 30 mg capsule,delayed release RxNorm: 882975 1 Capsule(s) PO daily 02/27/2019 No Stop Date Active Lyrica 50 mg capsule RxNorm: 076462 Capsule(s) PO daily 02/26/2019 06/25/2019 Active Cymbalta 60 mg capsule,delayed release RxNorm: 157670 1 Capsule(s) PO QAM 02/19/2019 02/26/2019 Inactive will call for refill- dose change Coreg 6.25 mg tablet RxNorm: 478112 1 Tablet(s) daily 02/19/2019 02/26/2019 Inactive clonazepam 1 mg tablet RxNorm: 994327 2 Tablet(s) PO HS 02/18/2019 06/14/2019 Active Tresiba FlexTouch U-200 insulin 200 unit/mL (3 mL) subcutaneous pen RxNorm: 2229711 50 Unit(s) SQ daily 01/08/2019 05/07/2019 Active please give him 30 day supply Protonix 40 mg tablet,delayed release RxNorm: 253928 1 Tablet(s) PO daily 12/31/2018 01/29/2019 Inactive Tresiba FlexTouch U-200 insulin 200 unit/mL (3 mL) subcutaneous pen RxNorm: 0582137 50 Unit(s) SQ daily 12/31/2018 01/07/2019 Inactive please give him 30 day supply Augmentin 500 mg-125 mg tablet RxNorm: 183985 1 Tablet(s) PO TID 12/26/2018 01/04/2019 Inactive Augmentin 500 mg-125 mg tablet RxNorm: 706881 1 Tablet(s) PO TID 12/26/2018 12/25/2018 Inactive ProAir HFA 90 mcg/actuation aerosol inhaler RxNorm: 9451558 2 Puff(s) INH QID as needed 11/18/2018 No Stop Date Active Lyrica 50 mg capsule RxNorm: 737780 Capsule(s) PO daily 11/13/2018 02/07/2019 Inactive Cymbalta 30 mg capsule,delayed release RxNorm: 956064 1 Capsule(s) PO QAM 11/13/2018 02/18/2019 Inactive Lyrica 50 mg capsule RxNorm: 682419 Capsule(s) PO daily 11/13/2018 11/12/2018 Inactive Symbicort 160 mcg-4.5 mcg/actuation HFA aerosol inhaler RxNorm: 7872210 2 Puff(s) INH BID 11/12/2018 12/11/2018 Inactive albuterol sulfate 2.5 mg/3 mL (0.083 %) solution for nebulization RxNorm: 405399 3 Milliliter(s) INH UD 11/07/2018 No Stop Date Active azithromycin 500 mg tablet RxNorm: 625358 500mg on day 1 then 250 mg daily x 4 more day Tablet(s) PO 11/07/2018 11/06/2018 Inactive 500mg on day 1 and then 250mg daily 2-4 cefdinir 300 mg capsule RxNorm: 998748 1 Capsule(s) PO BID 11/07/2018 11/06/2018 Inactive azithromycin 500 mg tablet RxNorm: 127608 500mg on day 1 then 250 mg daily x 4 more day Tablet(s) PO 11/07/2018 01/07/2019 Inactive 500mg on day 1 and then 250mg daily 2-4 cefdinir 300 mg capsule RxNorm: 128220 1 Capsule(s) PO BID 11/07/2018 11/13/2018 Inactive Levaquin 500 mg tablet RxNorm: 806172 1 Tablet(s) PO daily TAKE ONE TABLET BY MOUTH DAILY UNTIL GONE 10/31/2018 11/13/2018 Inactive Levaquin 500 mg tablet RxNorm: 780149 1 Tablet(s) PO daily 10/30/2018 11/12/2018 Inactive valsartan 80 mg tablet RxNorm: 322084 1/2 Tablet(s) PO daily 10/23/2018 03/06/2019 Inactive doxycycline hyclate 100 mg tablet RxNorm: 2246492 1 Tablet(s) PO BID 10/21/2018 10/27/2018 Inactive ketorolac 60 mg/2 mL intramuscular solution RxNorm: 4640591 Milliliter(s) IM 10/21/2018 10/21/2018 Inactive Levaquin 500 mg tablet RxNorm: 464876 1 Tablet(s) PO daily 10/17/2018 10/31/2018 Inactive Tessalon Perles 100 mg capsule RxNorm: 617775 1-2 Capsule(s) PO TID PRN 10/14/2018 No Stop Date Active albuterol sulfate 2.5 mg/3 mL (0.083 %) solution for nebulization RxNorm: 035963 3 Milliliter(s) INH UD 10/14/2018 11/06/2018 Inactive Levaquin 500 mg tablet RxNorm: 224482 1 Tablet(s) PO daily 10/14/2018 10/16/2018 Inactive albuterol sulfate 2.5 mg/3 mL (0.083 %) solution for nebulization RxNorm: 339724 3 Milliliter(s) INH UD 09/30/2018 10/13/2018 Inactive Kenalog 40 mg/mL suspension for injection RxNorm: 8091368 1.5 Milliliter(s) Inj 09/30/2018 09/30/2018 Inactive Coreg 6.25 mg tablet RxNorm: 779150 TAKE ONE TABLET BY MOUTH TWICE A DAY 09/30/2018 02/18/2019 Inactive Keflex 500 mg capsule RxNorm: 192494 1 Capsule(s) PO TID 09/27/2018 10/03/2018 Inactive prednisone 20 mg tablet RxNorm: 032995 2 Tablet(s) PO daily 09/27/2018 09/29/2018 Inactive Kenalog 40 mg/mL suspension for injection RxNorm: 4094179 Milliliter(s) Inj 09/11/2018 09/11/2018 Inactive Zyrtec 10 mg tablet RxNorm: 9759817 1 Tablet(s) PO daily 09/09/2018 10/08/2018 Inactive Keflex 500 mg capsule RxNorm: 703744 1 Capsule(s) PO TID 09/09/2018 09/15/2018 Inactive Tresiba FlexTouch U-200 insulin 200 unit/mL (3 mL) subcutaneous pen RxNorm: 8269293 50 Unit(s) SQ daily 08/30/2018 08/29/2018 Inactive please give him 30 day supply Tresiba FlexTouch U-200 insulin 200 unit/mL (3 mL) subcutaneous pen RxNorm: 4136036 50 Unit(s) SQ daily 08/30/2018 09/28/2018 Inactive please give him 30 day supply Novolog Flexpen U-100 Insulin aspart 100 unit/mL subcutaneous RxNorm: 2771708 8 Unit(s) SQ AC 08/13/2018 No Stop Date Active Novolog Flexpen U-100 Insulin aspart 100 unit/mL subcutaneous RxNorm: 2458704 8 Unit(s) SQ AC 07/22/2018 2018 Inactive this is an update on his medication Novolog Flexpen U-100 Insulin aspart 100 unit/mL subcutaneous RxNorm: 8115706 12 Unit(s) SQ AC 07/05/2018 07/21/2018 Inactive this is an update on his medication Toujeo SoloStar U-300 Insulin 300 unit/mL (1.5 mL) subcutaneous pen RxNorm: 1822866 INJECT 50 UNITS UNDER THE SKIN DAILY 07/01/2018 08/29/2018 Inactive Mucinex 600 mg tablet, extended release RxNorm: 909621 1 Tablet(s) PO BID 06/28/2018 07/04/2018 Inactive Zofran 4 mg tablet RxNorm: 888395 1 Tablet(s) PO TID as needed nausea 06/28/2018 07/02/2018 Inactive Kenalog 40 mg/mL suspension for injection RxNorm: 9829093 Milliliter(s) Inj 06/28/2018 06/28/2018 Inactive Flonase Allergy Relief 50 mcg/actuation nasal spray,suspension RxNorm: 3589172 1 [place] NASAL BID 06/28/2018 07/08/2018 Inactive Lyrica 50 mg capsule RxNorm: 069696 Capsule(s) PO daily 06/24/2018 07/06/2018 Inactive Novolog Flexpen U-100 Insulin aspart 100 unit/mL subcutaneous RxNorm: 5070273 10 Unit(s) SQ AC 06/18/2018 07/04/2018 Inactive this is an update on his medication Lasix 20 mg tablet RxNorm: 163213 1 Tablet(s) PO BIW 06/12/2018 07/02/2018 Inactive atorvastatin 80 mg tablet RxNorm: 490089 1 Tablet(s) PO QHS 06/10/2018 12/06/2018 Inactive clonazepam 1 mg tablet RxNorm: 937666 2 Tablet(s) PO HS as needed 06/10/2018 06/08/2018 Inactive clonazepam 1 mg tablet RxNorm: 142692 2 Tablet(s) PO HS 06/10/2018 02/17/2019 Inactive Lyrica 50 mg capsule RxNorm: 255781 Capsule(s) PO daily 06/10/2018 07/08/2018 Inactive Lasix 20 mg tablet RxNorm: 1 Tablet(s) PO TIW 06/04/2018 06/11/2018 Inactive Toujeo SoloStar U-300 Insulin 300 unit/mL (1.5 mL) subcutaneous pen RxNorm: 3957820 50 Unit(s) SQ daily 05/07/2018 06/30/2018 Inactive meloxicam 15 mg tablet RxNorm: 068469 15 Milligram(s) PO daily 05/02/2018 05/12/2018 Inactive ketorolac 30 mg/mL injection solution RxNorm: 018015 2 Milliliter(s) Inj 05/02/2018 05/02/2018 Inactive Toujeo SoloStar U-300 Insulin 300 unit/mL (1.5 mL) subcutaneous pen RxNorm: 4250378 45 Unit(s) daily 04/29/2018 05/02/2018 Inactive clonazepam 1 mg tablet RxNorm: 442378 1 Tablet(s) PO Q8 as needed 04/29/2018 06/09/2018 Inactive doxycycline hyclate 100 mg tablet RxNorm: 8069770 1 Tablet(s) PO BID 04/29/2018 05/12/2018 Inactive Cymbalta 30 mg capsule,delayed release RxNorm: 580508 1 Capsule(s) PO QAM 03/13/2018 10/08/2018 Inactive Lexapro 10 mg tablet RxNorm: 952201 1 Tablet(s) PO QPM 02/28/2018 03/03/2018 Inactive Toujeo SoloStar U-300 Insulin 300 unit/mL (1.5 mL) subcutaneous pen RxNorm: 6955203 20 Unit(s) daily 02/28/2018 03/03/2018 Inactive Protonix 40 mg tablet,delayed release RxNorm: 824461 1 Tablet(s) PO daily 01/29/2018 06/09/2018 Inactive clonazepam 1 mg tablet RxNorm: 402278 1 Tablet(s) PO Q8 as needed 12/12/2017 03/10/2018 Inactive Tamiflu 75 mg capsule RxNorm: 277423 1 Capsule(s) PO BID 11/29/2017 12/03/2017 Inactive doxycycline hyclate 100 mg capsule RxNorm: 6782768 1 Capsule(s) PO BID 09/07/2017 09/20/2017 Inactive doxycycline hyclate 100 mg capsule RxNorm: 3747950 1 Capsule(s) PO BID 08/27/2017 09/06/2017 Inactive prednisone 20 mg tablet RxNorm: 173189 2 Tablet(s) PO daily 08/27/2017 08/31/2017 Inactive clopidogrel 75 mg tablet RxNorm: 028027 1 Tablet(s) PO daily 08/24/2017 06/09/2018 Inactive atorvastatin 40 mg tablet RxNorm: 366169 1 Tablet(s) PO QHS 08/24/2017 02/27/2018 Inactive losartan 25 mg tablet RxNorm: 772471 TAKE ONE TABLET BY MOUTH DAILY 08/22/2017 06/09/2018 Inactive Toujeo SoloStar 300 unit/mL (1.5 mL) subcutaneous insulin pen RxNorm: 5060342 45 Unit(s) daily 08/17/2017 08/20/2017 Inactive mupirocin 2 % topical ointment RxNorm: 120785 1 Application TOP TID to the lesions on chest 08/16/2017 08/25/2017 Inactive Toujeo SoloStar 300 unit/mL (1.5 mL) subcutaneous insulin pen RxNorm: 5566644 40 Unit(s) daily 08/16/2017 08/16/2017 Inactive valacyclovir 1 gram tablet RxNorm: 621792 1 Tablet(s) PO TID 07/26/2017 08/01/2017 Inactive clonazepam 1 mg tablet RxNorm: 413673 1 Tablet(s) PO Q8 as needed 07/03/2017 09/30/2017 Inactive Levaquin 500 mg tablet RxNorm: 786447 1 Tablet(s) PO daily 06/22/2017 06/25/2017 Inactive Levaquin 500 mg tablet RxNorm: 226136 1 Tablet(s) PO daily 06/18/2017 06/21/2017 Inactive losartan 25 mg tablet RxNorm: 752667 1 Tablet(s) PO daily 06/18/2017 08/16/2017 Inactive nystatin 100,000 unit/mL oral suspension RxNorm: 335660 5 Milliliter(s) PO QID Swish et swallow 06/18/2017 06/17/2017 Inactive nystatin 100,000 unit/mL oral suspension RxNorm: 689020 5 Milliliter(s) PO QID Swish et swallow 06/18/2017 06/27/2017 Inactive Cipro 500 mg tablet RxNorm: 551139 1 Tablet(s) PO BID 06/12/2017 06/18/2017 Inactive Cipro 500 mg tablet RxNorm: 533700 1 Tablet(s) PO BID 06/12/2017 06/11/2017 Inactive Toujeo SoloStar 300 unit/mL (1.5 mL) subcutaneous insulin pen RxNorm: 4398748 INJECT 10 UNITS UNDER THE SKIN DAILY 06/12/2017 08/15/2017 Inactive Keflex 500 mg capsule RxNorm: 737720 1 Capsule(s) PO TID 06/07/2017 06/13/2017 Inactive doxycycline hyclate 100 mg capsule RxNorm: 5865523 1 Capsule(s) PO BID 05/17/2017 05/21/2017 Inactive doxycycline hyclate 100 mg capsule RxNorm: 8245181 1 Capsule(s) PO BID 05/11/2017 05/16/2017 Inactive losartan 25 mg tablet RxNorm: 337533 1 Tablet(s) PO daily 03/01/2017 06/17/2017 Inactive atorvastatin 40 mg tablet RxNorm: 857762 1 Tablet(s) PO daily 03/01/2017 08/23/2017 Inactive clopidogrel 75 mg tablet RxNorm: 189738 1 Tablet(s) PO daily 03/01/2017 08/23/2017 Inactive Flonase Allergy Relief 50 mcg/actuation nasal spray,suspension RxNorm: 8542539 2 [place] NASAL daily 02/16/2017 02/25/2017 Inactive Augmentin 875 mg-125 mg tablet RxNorm: 603202 1 Tablet(s) PO BID 02/16/2017 02/22/2017 Inactive GET PROBIOTIC TO TAKE WHILE ON ABX Tamiflu 75 mg capsule RxNorm: 341935 1 Capsule(s) PO BID 02/16/2017 02/20/2017 Inactive ceftriaxone 500 mg solution for injection RxNorm: 8799963 1 Milliliter(s) Inj 02/16/2017 02/16/2017 Inactive Kenalog 40 mg/mL suspension for injection RxNorm: 8806412 1 Milliliter(s) Inj 02/16/2017 02/16/2017 Inactive Toujeo SoloStar 300 unit/mL (1.5 mL) subcutaneous insulin pen RxNorm: 3234930 25 Unit(s) SQ QAM 02/12/2017 06/10/2017 Inactive Toujeo SoloStar 300 unit/mL (1.5 mL) subcutaneous insulin pen RxNorm: 1009464 10 Unit(s) SQ QAM 02/05/2017 02/11/2017 Inactive lisinopril 10 mg tablet RxNorm: 081715 1 Tablet(s) PO daily 02/01/2017 02/28/2017 Inactive atorvastatin 40 mg tablet RxNorm: 963205 1 Tablet(s) PO daily 02/01/2017 02/28/2017 Inactive doxycycline hyclate 100 mg capsule RxNorm: 9460300 1 Capsule(s) PO BID 02/01/2017 02/10/2017 Inactive clonazepam 1 mg tablet RxNorm: 949530 1 Tablet(s) PO Q8 as needed 10/09/2016 01/05/2017 Inactive ceftriaxone 1 gram solution for injection RxNorm: 0077551 Inj 10/06/2016 10/06/2016 Inactive cyclobenzaprine 10 mg tablet RxNorm: 610160 1/2-1 Tablet(s) PO TID PRN 07/18/2016 01/28/2017 Inactive clonazepam 1 mg tablet RxNorm: 460493 1 Tablet(s) PO Q8 as needed 05/31/2016 05/29/2016 Inactive clonazepam 1 mg tablet RxNorm: 372817 1 Tablet(s) PO Q8 as needed 05/31/2016 08/28/2016 Inactive Toujeo SoloStar 300 unit/mL (1.5 mL) subcutaneous insulin pen RxNorm: 5537041 10 Unit(s) SQ daily 05/23/2016 01/28/2017 Inactive Crestor 10 mg tablet RxNorm: 420989 1 Tablet(s) PO QHS 05/19/2016 01/28/2017 Inactive Crestor 10 mg tablet RxNorm: 645041 1 Tablet(s) PO QHS 05/19/2016 05/18/2016 Inactive clonazepam 1 mg tablet RxNorm: 329598 1 Tablet(s) PO Q8 as needed 04/25/2016 05/30/2016 Inactive prednisone 20 mg tablet RxNorm: 900678 3 Tablet(s) PO daily 02/11/2016 02/10/2016 Inactive prednisone 20 mg tablet RxNorm: 307213 3 Tablet(s) PO daily 02/11/2016 05/14/2016 Inactive Kenalog 40 mg/mL suspension for injection RxNorm: 5468504 Milliliter(s) Inj 01/20/2016 01/20/2016 Inactive aspirin 81 mg tablet,delayed release RxNorm: 098014 1 Tablet(s) PO daily No Start Date Active Brilinta 90 mg tablet RxNorm: 7152494 1 Tablet(s) PO BID No Start Date Active acetaminophen 500 mg tablet RxNorm: 726917 1-2 Tablet(s) PO as needed No Start Date Active clopidogrel 75 mg tablet RxNorm: 070141 1 Tablet(s) PO daily No Start Date 02/28/2017 Inactive Novolog Flexpen U-100 Insulin aspart 100 unit/mL subcutaneous RxNorm: 4462224 5 units with breakfast lunch and 10 supper Unit(s) SQ No Start Date 06/17/2018 Inactive clonazepam 1 mg tablet RxNorm: 168492 1 Tablet(s) PO QHS No Start Date 04/24/2016 Inactive Coreg 6.25 mg tablet RxNorm: 862695 1 Tablet(s) PO BID No Start Date 09/29/2018 Inactive acyclovir 400 mg tablet RxNorm: 098884 2 Tablet(s) PO 5x daily No Start Date 02/28/2017 Inactive Lyrica 50 mg capsule RxNorm: 630666 Capsule(s) PO BID No Start Date 06/09/2018 Inactive Vraylar 3 mg capsule RxNorm: 9354809 1 Capsule(s) PO daily No Start Date 03/12/2018 Inactive valsartan 80 mg tablet RxNorm: 886762 1 Tablet(s) PO daily No Start Date 10/22/2018 Inactive Medication Administered Medication Codes Instructions Start Date Status ketorolac 60 mg/2 mL intramuscular solution RxNorm: 8346910 Milliliter 10/21/2018 No longer Active Kenalog 40 mg/mL suspension for injection RxNorm: 1645252 1.5Milliliter 09/30/2018 No longer Active Kenalog 40 mg/mL suspension for injection RxNorm: 4470023 Milliliter 09/11/2018 No longer Active Kenalog 40 mg/mL suspension for injection RxNorm: 6247924 Milliliter 06/28/2018 No longer Active ketorolac 30 mg/mL injection solution RxNorm: 222871 2Milliliter 05/02/2018 No longer Active ceftriaxone 500 mg solution for injection RxNorm: 0068408 1Milliliter 02/16/2017 No longer Active Kenalog 40 mg/mL suspension for injection RxNorm: 0161715 1Milliliter 02/16/2017 No longer Active ceftriaxone 1 gram solution for injection RxNorm: 3207016 10/06/2016 No longer Active Kenalog 40 mg/mL suspension for injection RxNorm: 2459784 Milliliter 01/20/2016 No longer Active Immunizations Vaccine Codes Date Status Influenza CVX: 141 07/22/2018 completed Influenza CVX: 141 08/16/2017 completed Assessments Condition Codes Effective Dates Essential (primary) hypertension ICD-10: I10 ICD-9: 401.1 03/07/2019 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-10: I95.2 ICD-9: 458.8 02/27/2019 Other fatigue ICD-10: R53.83 ICD-9: 780.79 02/17/2019 Atherosclerotic heart disease of [place] coronary artery without angina pectoris ICD-10: I25.10 [...] except food ICD-10: L23.7 ICD-9: 692.6 05/04/2017 Nasal congestion ICD-10: [...] Item Item Code Result Date Culture Sputum 896644 LOWER RESPIRATORY TRACT CULTURE SEE NOTES 11/14/2018 Culture Sputum 591337 LOWER RESPIRATORY TRACT CULTURE SEE NOTES 10/16/2018 LIPID GRP 7592779 CHOLESTEROL TNP:Duplicate Order 09/10/2018 LIPID GRP 2318889 Triglyceride TNP:Duplicate Order 09/10/2018 LIPID GRP 2256149 HDL CHOLESTEROL TNP:Duplicate Order 09/10/2018 LIPID GRP 0926829 Chol/HDL Ratio TNP:Duplicate Order 09/10/2018 LIPID GRP 9795446 LDL Cholesterol TNP:Duplicate Order 09/10/2018 A1C HPLC 1944466 Hgb A1c 18687-4 TNP:Duplicate Order 09/10/2018 C Diff An 16940021 GDH TNP:Lab Request 06/22/2018 C Diff An [id number] Toxin A/B TNP:Lab Request 06/22/2018 C Diff An [id number] C Diff Analyzer TNP:Lab Request 06/22/2018 C Diff An [id number] IC OK? TNP:Lab Request 06/22/2018 CBC 5432608 WBC 6.4 10e9/L 05/02/2018 CBC 4144910 RBC 5.60 10e12/L 05/02/2018 CBC 5629836 HEMOGLOBIN 17.0 g/dL 05/02/2018 CBC 1799810 HEMATOCRIT 48.0 % 05/02/2018 CBC 0492779 MCV 85.7 fL 05/02/2018 CBC 1859874 MCH 30.4 pg 05/02/2018 CBC 8181087 MCHC 35.4 g/dL 05/02/2018 CBC 1548940 PLATELET COUNT 166 10e9/L 05/02/2018 CBC 3609871 Mean Plt Volume 11.6 fL 05/02/2018 CBC 2425899 Neut Auto 48.6 % 05/02/2018 CBC 0937291 Lymph Auto 41.7 % 05/02/2018 CBC 8619846 [place] Auto 8.1 % 05/02/2018 CBC 2705902 RDW 13.1 % 05/02/2018 CBC 0517000 Eos Auto 1.1 % 05/02/2018 CBC 4700967 Baso Auto 0.5 % 05/02/2018 CBC 1122015 Neutrophil Abs 3.11 10e9/L 05/02/2018 CBC 7929207 Lymphocyte Abs 2.67 10e9/L 05/02/2018 CBC 2869951 Monocyte Abs 0.52 10e9/L 05/02/2018 CBC 8424794 Eosinophil Abs 0.07 10e9/L 05/02/2018 CBC 0222851 RDW-SD 40.0 fL 05/02/2018 CBC 5373443 Basophil Abs 0.03 10e9/L 05/02/2018 CHEM 14 2901527 AST 17 U/L 05/02/2018 CHEM 14 9640359 ALT 17 U/L 05/02/2018 CHEM 14 0861103 BUN 17 mg/dL 05/02/2018 CHEM 14 8023779 ALBUMIN 4.0 g/dL 05/02/2018 CHEM 14 3984741 CHLORIDE 97 mmol/L 05/02/2018 CHEM 14 2754005 Bili Total 0.9 mg/dL 05/02/2018 CHEM 14 5008376 ALK PHOS 67 U/L 05/02/2018 CHEM 14 8290535 SODIUM 135 mmol/L 05/02/2018 CHEM 14 7915007 CREATININE 1.18 mg/dL 05/02/2018 CHEM 14 6324599 CALCIUM 9.4 mg/dL 05/02/2018 CHEM 14 8478008 POTASSIUM 4.4 mmol/L 05/02/2018 CHEM 14 3524259 TOTAL PROTEIN 6.9 g/dL 05/02/2018 CHEM 14 5694775 GLUCOSE 316 mg/dL 05/02/2018 CHEM 14 9713634 Bicarbonate 29 mmol/L 05/02/2018 CHEM 14 9440850 AGAP 9 mmol/L 05/02/2018 MEAN GLUC 1399409 Calc Mean Gluc 283 mg/dL 05/02/2018 A1C HPLC 1323344 Hgb A1c 89929-6 11.5 % 05/02/2018 GFR CALC 2095489 GFR Non Afr Amr >60 mL/min 05/02/2018 GFR CALC 8281763 GFR Afr Amr >60 mL/min 05/02/2018 JIC Gold 0925138 JIC Gold Complete 02/28/2018 GFR CALC 4097562 GFR Non Afr Amr >60 mL/min 02/28/2018 GFR CALC 7311808 GFR Afr Amr >60 mL/min 02/28/2018 UA W/CII 5062635 UA Urine Appear Normal 02/28/2018 UA W/CII 8228047 UA Protein 1+ 02/28/2018 UA W/CII 3463647 UA Hemoglobin Negative 02/28/2018 UA W/CII 1261266 UA Glucose 4+ 02/28/2018 UA W/CII 5129845 UA Ketones Trace 02/28/2018 UA W/CII 0353331 UA pH 5.5 02/28/2018 UA W/CII 2720416 U Spec [place] 1.015 02/28/2018 UA W/CII 2925320 UA Bilirubin Negative 02/28/2018 UA W/CII 9028072 UA Nitrite NEG 02/28/2018 UA W/CII 2634335 UA Leuk Esteras Negative 02/28/2018 MICR 1718749 UA WBC/hpf 1 02/28/2018 MICR 7074570 UA RBC hpf 2 02/28/2018 MICR 1074701 UA WBC auto 3.8 /uL 02/28/2018 MICR 8105521 UA RBC auto 12.2 /uL 02/28/2018 MICR 2403458 UA SQ EPI auto 2.3 /uL 02/28/2018 MICR 1475279 UA H Cast auto 0.10 /uL 02/28/2018 CBC 0115878 WBC 6.4 10e9/L 02/28/2018 CBC 3254826 RBC 5.51 10e12/L 02/28/2018 CBC 9737364 HEMOGLOBIN 16.7 g/dL 02/28/2018 CBC 1464076 HEMATOCRIT 46.9 % 02/28/2018 CBC 1735282 MCV 85.1 fL 02/28/2018 CBC 8914614 MCH 30.3 pg 02/28/2018 CBC 8190794 MCHC 35.6 g/dL 02/28/2018 CBC 9785389 PLATELET COUNT 173 10e9/L 02/28/2018 CBC 7363790 Mean Plt Volume 11.6 fL 02/28/2018 CBC 9617871 Neut Auto 51.8 % 02/28/2018 CBC 4247844 Lymph Auto 39.9 % 02/28/2018 CBC 0362109 [place] Auto 7.3 % 02/28/2018 CBC 7097724 RDW 13.3 % 02/28/2018 CBC 3148531 Eos Auto 0.8 % 02/28/2018 CBC 2713231 Baso Auto 0.2 % 02/28/2018 CBC 4913462 Neutrophil Abs 3.32 10e9/L 02/28/2018 CBC 6612417 Lymphocyte Abs 2.55 10e9/L 02/28/2018 CBC 8194900 Monocyte Abs 0.47 10e9/L 02/28/2018 CBC 8926692 Eosinophil Abs 0.05 10e9/L 02/28/2018 CBC 3772721 RDW-SD 40.8 fL 02/28/2018 CBC 8013968 Basophil Abs 0.01 10e9/L 02/28/2018 CHEM 14 5977373 AST 17 U/L 02/28/2018 CHEM 14 5280486 ALT 17 U/L 02/28/2018 CHEM 14 1922528 BUN 20 mg/dL 02/28/2018 CHEM 14 1239971 ALBUMIN 4.1 g/dL 02/28/2018 CHEM 14 9363819 CHLORIDE 97 mmol/L 02/28/2018 CHEM 14 9733434 Bili Total 1.3 mg/dL 02/28/2018 CHEM 14 0795578 ALK PHOS 78 U/L 02/28/2018 CHEM 14 9712640 SODIUM 135 mmol/L 02/28/2018 CHEM 14 1702355 CREATININE 1.09 mg/dL 02/28/2018 CHEM 14 0271896 CALCIUM 9.6 mg/dL 02/28/2018 CHEM 14 3133856 POTASSIUM 3.8 mmol/L 02/28/2018 CHEM 14 5140310 TOTAL PROTEIN 7.3 g/dL 02/28/2018 CHEM 14 6758911 GLUCOSE 349 mg/dL 02/28/2018 CHEM 14 0016992 Bicarbonate 29 mmol/L 02/28/2018 CHEM 14 8706644 AGAP 9 mmol/L 02/28/2018 [place] Spotted Fever Igg/Igm 861840 FEI MT SPOTTED FEVER IGM EIA . 09/05/2017 [place] Spotted Fever Igg/Igm 896082 RMSF, IGM 0.17 index 09/05/2017 [place] Spotted Fever Igg/Igm 675487 FEI MT SPOTTED FEVER IGG EIA FLEX . 09/05/2017 [place] Spotted Fever Igg/Igm 482133 RMSF, IGG SCREEN-FLEX Positive 09/05/2017 Fei Mtn Spot'D Fev Igg 310899 RMSF, IGG- TITER IFA <1:64 09/05/2017 Ehrlichia Chaffeensis Antibody Igm 371792 EHRLICHIA CHAFFEENSIS IGM < 1:16 09/03/2017 Ehrlichia Chaffeensis Antibody Igg 855475 EHRLICHIA CHAFFEENSIS IGG <1:64 09/03/2017 Lymes Disease Total Antibodies With Western Blot Reflex B. BURGDORFERI, IGG/IGM 0.223 08/30/2017 Lymes Disease Total Antibodies With Western Blot Reflex 08/30/2017 C-Reactive Protein Qnt Crqnt CRP 0.00 mg/dl 08/27/2017 Sed Rate Ord21 ESR 8 mm/hr 08/27/2017 Comp Metabolic Vpq593 NA 135 mEq/L 08/16/2017 Comp Metabolic Foq170 K 4.1 mEq/L 08/16/2017 Comp Metabolic Bvn207 CL 98 mEq/L 08/16/2017 Comp Metabolic Crz968 CO2 28.0 mEq/L 08/16/2017 Comp Metabolic Yrn967 ANION GAP 13 08/16/2017 Comp Metabolic Clv366 GLUCOSE 299 mg/dL 08/16/2017 Comp Metabolic Ljy389 Creat 0.9 mg/dL 08/16/2017 Comp Metabolic Eyk182 eGFR 90 ml/min/1.73m2 08/16/2017 Comp Metabolic Ubg365 BUN 20 mg/dL 08/16/2017 Comp Metabolic Zsi569 B/C Ratio 21.5 Ratio 08/16/2017 Comp Metabolic Rlx856 CALCIUM 9.2 mg/dL 08/16/2017 Comp Metabolic Aci763 ALK PHOS 84 U/L 08/16/2017 Comp Metabolic Qkd589 AST(SGOT) 19 U/L 08/16/2017 Comp Metabolic Xxc444 ALT(SGPT) 24 U/L 08/16/2017 Comp Metabolic Hog908 BILI T 1.1 mg/dL 08/16/2017 Comp Metabolic Dcc575 ALBUMIN 4.2 g/dL 08/16/2017 Comp Metabolic Ive920 TPRO 7.2 g/dL 08/16/2017 Comp Metabolic Xna878 GLOB 3.0 g/dL 08/16/2017 Comp Metabolic Ynz583 A/G Ratio 1.4 Ratio 08/16/2017 Comp Metabolic Uaz282 Osmo 284 mOsmo 08/16/2017 %Hba1C Inw199 % HbA1c 31515- 6 12.5 % 08/16/2017 %Hba1C Dbo060 Gluc Ave 312 mg/dL 08/16/2017 Urine Culture Ucult Preliminary NO Growth Day 1 06/23/2017 Urine Culture Ucult Complete NO Growth Day 2 06/23/2017 C RAP A SC [id number] Strep A Negative 06/08/2017 %Hba1C Fpw095 % HbA1c 83391- 6 9.5 % 05/04/2017 %Hba1C Wre019 Gluc Ave 226 mg/dL 05/04/2017 Tsh Ord6 [...] 31.7 pg 05/04/2017 Cbc With Differential Ord2 [place]% 8.5 % 05/04/2017 Cbc With Differential Ord2 [...] 2.48 K/ul 05/04/2017 Cbc With Differential Ord2 [place] ABS# 0.5 K/ul 05/04/2017 Cbc With Differential Ord2 Eos ABS# 0.1 K/ul 05/04/2017 Cbc With Differential Ord2 Baso ABS# 0.0 K/ul 05/04/2017 Comp Metabolic Kkp862 NA 135 mEq/L 05/04/2017 Comp Metabolic Mls955 K 4.2 mEq/L 05/04/2017 Comp Metabolic Tfx896 CL 99 mEq/L 05/04/2017 Comp Metabolic Ptm192 CO2 26.0 mEq/L 05/04/2017 Comp Metabolic Cbc138 ANION GAP 14 05/04/2017 Comp Metabolic Ehc958 GLUCOSE 277 mg/dL 05/04/2017 Comp Metabolic Xwj635 Creat 0.9 mg/dL 05/04/2017 Comp Metabolic Uns733 eGFR 96 ml/min/1.73m2 05/04/2017 Comp Metabolic Npv861 BUN 23 mg/dL 05/04/2017 Comp Metabolic Ktr804 B/C Ratio 26.1 Ratio 05/04/2017 Comp Metabolic Yfv844 CALCIUM 8.9 mg/dL 05/04/2017 Comp Metabolic Yfv552 ALK PHOS 81 U/L 05/04/2017 Comp Metabolic Lpj643 AST(SGOT) 21 U/L 05/04/2017 Comp Metabolic Guy151 ALT(SGPT) 27 U/L 05/04/2017 Comp Metabolic Eum869 BILI T 1.2 mg/dL 05/04/2017 Comp Metabolic Iug703 ALBUMIN 4.0 g/dL 05/04/2017 Comp Metabolic Whq255 TPRO 6.7 g/dL 05/04/2017 Comp Metabolic Gtl386 GLOB 2.7 g/dL 05/04/2017 Comp Metabolic Gvm109 A/G Ratio 1.5 Ratio 05/04/2017 Comp Metabolic Dfx889 Osmo 284 mOsmo 05/04/2017 C A/B FLU [id number] Influenza A Scr Negative 02/16/2017 C A/B FLU [id number] Influenza B Scr Positive 02/16/2017 Cbc With [...] 30.3 pg 05/23/2016 Cbc With Differential Ord2 [place]% 8.8 % 05/23/2016 Cbc With Differential Ord2 [...] 2.07 K/ul 05/23/2016 Cbc With Differential Ord2 [place] ABS# 0.5 K/ul 05/23/2016 Cbc With Differential Ord2 Eos ABS# 0.1 K/ul 05/23/2016 Cbc With Differential Ord2 Baso ABS# 0.0 K/ul 05/23/2016 Lipid Ord30 CHOL 397 mg/dL 05/17/2016 Lipid Ord30 HDL 48.0 mg/dl 05/17/2016 Lipid Ord30 TRIG 578 mg/dL 05/17/2016 Lipid Ord30 LDL Unable to calculate Due to elevated triglycerides mg/dL 05/17/2016 Lipid Ord30 C/HDL 8.3 Ratio 05/17/2016 %Hba1C Ltd585 % HbA1c 48998- 6 12.4 % 05/16/2016 %Hba1C Vkq970 Gluc Ave 309 mg/dL 05/16/2016 Cbc With [...] 30.4 pg 05/15/2016 Cbc With Differential Ord2 [place]% 7.8 % 05/15/2016 Cbc With Differential Ord2 [...] 2.04 K/ul 05/15/2016 Cbc With Differential Ord2 [place] ABS# 0.5 K/ul 05/15/2016 Cbc With Differential Ord2 Eos ABS# 0.1 K/ul 05/15/2016 Cbc With Differential Ord2 Baso ABS# 0.0 K/ul 05/15/2016 Tsh Ord6 hTSH II 1.70 uIU/mL 05/15/2016 Comp Metabolic Ycg572 NA 135 mEq/L 05/15/2016 Comp Metabolic Yju893 K 3.9 mEq/L 05/15/2016 Comp Metabolic Wce871 CL 96 mEq/L 05/15/2016 Comp Metabolic Inc616 CO2 27.0 mEq/L 05/15/2016 Comp Metabolic Xlp552 ANION GAP 16 05/15/2016 Comp Metabolic Oqe293 GLUCOSE 183 mg/dL 05/15/2016 Comp Metabolic Qqh906 Creat 1.1 mg/dL 05/15/2016 Comp Metabolic Uca941 eGFR 71 ml/min/1.73m2 05/15/2016 Comp Metabolic Naa631 BUN 17 mg/dL 05/15/2016 Comp Metabolic Cpr778 B/C Ratio 14.9 Ratio 05/15/2016 Comp Metabolic Hnw804 CALCIUM 9.6 mg/dL 05/15/2016 Comp Metabolic Seh670 ALK PHOS 100 U/L 05/15/2016 Comp Metabolic Llx047 AST(SGOT) 20 U/L 05/15/2016 Comp Metabolic Jev361 ALT(SGPT) 20 U/L 05/15/2016 Comp Metabolic Eol980 BILI T 1.3 mg/dL 05/15/2016 Comp Metabolic Txv717 ALBUMIN 4.6 g/dL 05/15/2016 Comp Metabolic Qlt709 TPRO 8.1 g/dL 05/15/2016 Comp Metabolic Zuf178 GLOB 3.5 g/dL 05/15/2016 Comp Metabolic Srw290 A/G Ratio 1.3 Ratio 05/15/2016 Comp Metabolic Llo210 Osmo 276 mOsmo 05/15/2016 Review of Systems System Result Effective Dates Constitutional No recent illness 03/07/2019 Constitutional No [...] of skin Location: face 05/04/2017 patch left anabaptist Full Exam - General 1994 Constitutional general [...] Codes Date URINALYSIS NONAUTO W/O SCOPE CPT-4: 65253 02/17/2019 KETOROLAC TROMETHAMINE INJ CPT-4: J1885 10/21/2018 TRIAMCINOLONE ACET INJ NOS CPT-4: J3301 09/30/2018 THER/PROPH/DIAG INJ SC/IM CPT-4: 63026 09/11/2018 TRIAMCINOLONE ACET INJ NOS CPT-4: J3301 09/11/2018 IMMUNIZATION ADMIN CPT- 4: 45563 07/22/2018 FLU VAC NO PRSV 4 MENA 3 YRS+ CPT-4: 12014 07/22/2018 TRIAMCINOLONE ACET INJ NOS CPT-4: J3301 06/28/2018 KETOROLAC TROMETHAMINE INJ CPT-4: J1885 05/02/2018 FLU VAC NO PRSV 4 MENA 3 YRS+ CPT-4: 20838 08/16/2017 IMMUNIZATION ADMIN CPT- 4: 15540 08/16/2017 URINALYSIS NONAUTO W/O SCOPE CPT-4: 60698 06/21/2017 TRIAMCINOLONE ACET INJ NOS CPT-4: J3301 05/04/2017 THER/PROPH/DIAG INJ SC/IM CPT-4: 22376 05/04/2017 TRIAMCINOLONE ACET INJ NOS CPT-4: J3301 02/16/2017 ROCEPHIN, PER 250 MG CPT- 4: J0696 02/16/2017 ROCEPHIN, PER 250 MG CPT- 4: J0696 10/06/2016 URINALYSIS NONAUTO W/O SCOPE CPT-4: 97439 07/18/2016 TRIAMCINOLONE ACET INJ NOS CPT-4: J3301 01/20/2016 Vital Signs Date Vital 03/07/2019 Blood Pressure 1: 110/70 Code: 8480-6 BMI: 33.0 Code: 05068-1 Heart Rate 1: 112 bpm Height: 6'2" SpO2: 95% Weight: 257 lbs 02/27/2019 Blood Pressure 1: 110/80 Code: 8480-6 BMI: 33.0 Code: 36821-2 Heart Rate 1: 89 bpm Height: 6'2" SpO2: 95% Weight: 257 lbs 02/17/2019 Blood Pressure 1: 120/80 Code: 8480-6 Blood Pressure 2: 102/80 Code: 8480-6 Heart Rate 1: 89 bpm SpO2: 96% 01/13/2019 Blood Pressure 1: 120/70 Code: 8480-6 BMI: 34.2 Code: 88483-7 Heart Rate 1: 74 bpm Height: 6'2" SpO2: 96% Weight: 266 lbs 12/31/2018 Blood Pressure 1: 122/70 Code: 8480-6 BMI: 34.4 Code: 45279-2 Heart Rate 1: 90 bpm Height: 6'2" SpO2: 97% Temperature: 36.6 (C) / 97.8 (F) Weight: 268 lbs 12/26/2018 Blood Pressure 1: 118/72 Code: 8480-6 BMI: 34.4 Code: 05611-6 Heart Rate 1: 82 bpm Height: 6'2" SpO2: 98% Temperature: 36.6 (C) / 97.9 (F) Weight: 268 lbs 11/18/2018 Blood Pressure 1: 120/84 Code: 8480-6 BMI: 33.9 Code: 84308-3 Heart Rate 1: 77 bpm Height: 6'2" SpO2: 99% Temperature: 36.7 (C) / 98.1 (F) Weight: 264 lbs 11/12/2018 Blood Pressure 1: 138/76 Code: 8480-6 BMI: 33.9 Code: 01049-3 Heart Rate 1: 91 bpm Height: 6'2" SpO2: 99% Weight: 264 lbs 10/30/2018 Blood Pressure 1: 130/72 Code: 8480-6 BMI: 33.3 Code: 90340-1 Heart Rate 1: 83 bpm Height: 6'2" SpO2: 95% Temperature: 36.5 (C) / 97.7 (F) Weight: 259 lbs 10/24/2018 Blood Pressure 1: 130/70 Code: 8480-6 Heart Rate 1: 95 bpm Height: 6'2" SpO2: 96% 10/23/2018 Blood Pressure 1: 100/70 Code: 8480-6 Blood Pressure 2: 102/70 Code: 8480-6 BMI: 33.3 Code: 30466-6 Heart Rate 1: 106 bpm Height: 6'2" SpO2: 98% Weight: 259 lbs 10/21/2018 Blood Pressure 1: 140/90 Code: 8480-6 BMI: 32.9 Code: 46543-7 Heart Rate 1: 96 bpm Height: 6'2" SpO2: 92% Weight: 256 lbs 10/17/2018 Blood Pressure 1: 110/68 Code: 8480-6 BMI: 32.9 Code: 40416-4 Heart Rate 1: 82 bpm Height: 6'2" SpO2: 97% Weight: 256 lbs 10/14/2018 Blood Pressure 1: 124/70 Code: 8480-6 BMI: 33.6 Code: 59896-0 Heart Rate 1: 76 bpm Height: 6'2" SpO2: 99% Temperature: 36.3 (C) / 97.3 (F) Weight: 262 lbs 09/30/2018 Blood Pressure 1: 138/82 Code: 8480-6 BMI: 33.6 Code: 56868-4 Heart Rate 1: 82 bpm Height: 6'2" SpO2: 98% Temperature: 36.3 (C) / 97.3 (F) Weight: 262 lbs 09/09/2018 Blood Pressure 1: 140/80 Code: 8480-6 BMI: 33.0 Code: 76469-4 Heart Rate 1: 97 bpm Height: 6'2" SpO2: 93% Temperature: 36.8 (C) / 98.2 (F) Weight: 257 lbs 07/22/2018 Blood Pressure 1: 120/78 Code: 8480-6 BMI: 31.6 Code: 97211-1 Heart Rate 1: 87 bpm Height: 6'2" SpO2: 98% Weight: 246 lbs 07/16/2018 Blood Pressure 1: 132/74 Code: 8480-6 BMI: 31.2 Code: 68383-0 Heart Rate 1: 90 bpm Height: 6'2" SpO2: 96% Weight: 243 lbs 07/01/2018 Blood Pressure 1: 142/82 Code: 8480-6 BMI: 31.8 Code: 54374-0 Heart Rate 1: 88 bpm Height: 6'2" SpO2: 98% Weight: 248 lbs 06/28/2018 Blood Pressure 1: 132/76 Code: 8480-6 BMI: 31.8 Code: 89567-9 Heart Rate 1: 107 bpm Height: 6'2" SpO2: 98% Temperature: 37.9 (C) / 100.3 (F) Weight: 248 lbs 06/18/2018 Blood Pressure 1: 138/82 Code: 8480-6 BMI: 31.8 Code: 74082-7 Heart Rate 1: 82 bpm Height: 6'2" SpO2: 97% Weight: 248 lbs 06/04/2018 Blood Pressure 1: 128/84 Code: 8480-6 BMI: 33.9 Code: 66344-0 Heart Rate 1: 86 bpm Height: 6'2" SpO2: 95% Weight: 264 lbs 05/13/2018 Blood Pressure 1: 130/80 Code: 8480-6 BMI: 31.1 Code: 31128-5 Heart Rate 1: 100 bpm Height: 6'2" SpO2: 94% Weight: 242 lbs 05/02/2018 Blood Pressure 1: 134/84 Code: 8480-6 BMI: 31.2 Code: 53892-2 Heart Rate 1: 93 bpm Height: 6'2" SpO2: 98% Weight: 243 lbs 04/29/2018 Blood Pressure 1: 142/88 Code: 8480-6 BMI: 31.6 Code: 12906-5 Heart Rate 1: 96 bpm Height: 6'2" SpO2: 96% Temperature: 36.7 (C) / 98.1 (F) Weight: 246 lbs 03/13/2018 Blood Pressure 1: 120/76 Code: 8480-6 BMI: 30.9 Code: 50916-9 Heart Rate 1: 112 bpm Height: 6'2" SpO2: 97% Weight: 241 lbs 03/07/2018 Blood Pressure 1: 108/78 Code: 8480-6 BMI: 30.0 Code: 97351-6 Heart Rate 1: 87 bpm Height: 6'2" SpO2: 98% Weight: 234 lbs 02/28/2018 Blood Pressure 1: 106/74 Code: 8480-6 BMI: 30.0 Code: 87688-7 Heart Rate 1: 101 bpm Height: 6'2" SpO2: 98% Temperature: 36.4 (C) / 97.5 (F) Weight: 234 lbs 02/13/2018 Blood Pressure 1: 110/78 Code: 8480-6 BMI: 30.0 Code: 91366-5 Heart Rate 1: 106 bpm Height: 6'2" SpO2: 98% Weight: 234 lbs 01/29/2018 Blood Pressure 1: 106/68 Code: 8480-6 BMI: 30.0 Code: 87329-0 Heart Rate 1: 108 bpm Height: 6'2" SpO2: 98% Weight: 234 lbs 08/27/2017 Blood Pressure 1: 134/76 Code: 8480-6 Heart Rate 1: 98 bpm Height: SpO2: 97% Weight: 08/16/2017 Blood Pressure 1: 128/80 Code: 8480-6 BMI: 32.0 Code: 73871-2 Heart Rate 1: 94 bpm Height: 6'2" [...] 1: 142/92 Code: 8480-6 BMI: 31.8 Code: 86836-6 Heart Rate 1: 102 bpm Height: 6'2" [...] 1: 122/72 Code: 8480-6 BMI: 31.8 Code: 13345-8 Heart Rate 1: 85 bpm Height: 6'2" SpO2: 96% Temperature: 36.6 (C) / 97.9 (F) Weight: 248 lbs 02/12/2017 Blood Pressure 1: 126/76 Code: 8480-6 BMI: 31.8 Code: 30423-7 Heart Rate 1: 106 bpm Height: 6'2" SpO2: 91% Weight: 248 lbs 02/05/2017 Blood Pressure 1: 146/86 Code: 8480-6 BMI: 31.9 Code: 23697-7 Heart Rate 1: 98 bpm Height: 6'2" SpO2: 87% Temperature: 36.7 (C) / 98.0 (F) Weight: 248 lbs 8 oz 01/29/2017 Blood Pressure 1: 132/84 Code: 8480-6 BMI: 31.8 Code: 20410-2 Heart Rate 1: 83 bpm Height: 6'2" SpO2: 97% Weight: 248 lbs 10/13/2016 Blood Pressure 1: 128/72 Code: 8480-6 Heart Rate 1: 86 bpm SpO2: 94% 10/09/2016 Blood Pressure 1: 128/68 Code: 8480-6 Heart Rate 1: 136 bpm SpO2: 94% Temperature: 36.8 (C) / 98.2 (F) 10/06/2016 Blood Pressure 1: 140/80 Code: 8480-6 BMI: 32.1 Code: 46115-4 Heart Rate 1: 94 bpm Height: 6'2" SpO2: 95% Weight: 250 lbs 07/18/2016 Blood Pressure 1: 128/86 Code: 8480-6 BMI: 32.1 Code: 59169-2 Heart Rate 1: 89 bpm Height: 6'2" SpO2: 96% Weight: 250 lbs 06/22/2016 Blood Pressure 1: 118/70 Code: 8480-6 BMI: 32.1 Code: 73617-5 Heart Rate 1: 70 bpm Height: 6'2" SpO2: 97% Weight: 250 lbs 05/23/2016 Blood Pressure 1: 128/80 Code: 8480-6 BMI: 32.1 Code: 83488-8 Heart Rate 1: 76 bpm Height: 6'2" SpO2: 98% Weight: 250 lbs 05/15/2016 Blood Pressure 1: 110/90 Code: 8480-6 BMI: 31.3 Code: 11528-7 Heart Rate 1: 111 bpm Height: 6'2" SpO2: 97% Temperature: 36.6 (C) / 97.8 (F) Weight: 244 lbs 01/20/2016 Blood Pressure 1: 128/76 Code: 8480-6 BMI: 33.0 Code: 03686-0 Heart Rate 1: 103 bpm Height: 6'2" [...] data Encounters Encounter Performer Location Codes Date ([id number]) 29311 EST. PATIENT, LEVEL III Diagnosis: Essential (primary) hypertension[ICD10: I10] Marcela Ha MD, [facility] CPT-4: 27437 03/07/2019 ([id number]) 46889 EST. PATIENT, LEVEL III Diagnosis: Hypotension due to drugs[ICD10: I95.2] Marcela Ha MD, [facility] CPT-4: 23842 02/27/2019 ([id number]) 00693 EST. PATIENT, LEVEL III Diagnosis: Hypotension due to drugs[ICD10: I95.2] Diagnosis: Other fatigue[ICD10: R53.83] Marcela Ha MD, [facility] CPT-4: 38249 02/17/2019 ([id number]) 06408 EST. 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 PATIENT, LEVEL IV Diagnosis: Type 2 diabetes mellitus with hyperglycemia[ICD10: E11.65] Diagnosis: Epigastric pain[ICD10: R10.13] Diagnosis: Pain in joints of right hand[ICD10: M25.541] Diagnosis: Shortness of breath[ICD10: R06.02] Marcela Ha MD, [facility] CPT- 4: 40883 12/31/2018 54610 EST. PATIENT, LEVEL III Diagnosis: Other chest pain[ICD10: R07.89] Diagnosis: Cough[ICD10: R05] Madeline Ha MD, [facility] CPT-4: 23003 12/26/2018 ([id number]) 92837 EST. PATIENT, LEVEL III Diagnosis: Cough[ICD10: R05] Melida Ha MD, [facility] CPT-4: 66216 11/18/2018 ([id number]) 72175 EST. PATIENT, LEVEL III Diagnosis: Cough[ICD10: R05] Diagnosis: Pneumonia due to other Gram-negative bacteria[ICD10: J15.6] Marcela Ha MD, [facility] CPT-4: 73630 11/12/2018 ([id number]) 79671 EST. PATIENT, LEVEL III Diagnosis: Pneumonia due to other Gram-negative bacteria[ICD10: J15.6] Diagnosis: Cough[ICD10: R05] Melida Ha MD, [facility] CPT-4: 05354 10/30/2018 ([id number]) 07699 EST. PATIENT, LEVEL II Diagnosis: Pain in joints of right hand[ICD10: M25.541] Diagnosis: Trigger finger, right middle finger[ICD10: M65.331] Marcela Ha MD, [facility] CPT-4: 66299 10/24/2018 ([id number]) 02307 EST. PATIENT, LEVEL IV Diagnosis: Essential (primary) hypertension[ICD10: I10] Diagnosis: Type 2 diabetes mellitus with foot ulcer[ICD10: E11.621] Melida Ha MD, [facility] CPT-4: 58331 10/23/2018 ([id number]) 59822 EST. PATIENT, LEVEL III Diagnosis: Cellulitis of right finger[ICD10: L03.011] Diagnosis: Type 2 diabetes mellitus with foot ulcer[ICD10: E11.621] Diagnosis: Pain in right hand[ICD10: M79.641] Melida Ha MD, [facility] CPT- 4: 48516 10/21/2018 40431 EST. PATIENT, LEVEL III Diagnosis: Spontaneous ecchymoses[ICD10: R23.3] Diagnosis: Cellulitis of right lower limb[ICD10: L03.115] Diagnosis: Cellulitis of left lower limb[ICD10: L03.116] Madeline Ha MD, [facility] CPT-4: 14276 10/17/2018 ([id number]) 77224 EST. PATIENT, LEVEL III Diagnosis: Cough[ICD10: R05] Diagnosis: Acute bronchitis, unspecified[ICD10: J20.9] Melida Ha MD, [facility] CPT-4: 68615 10/14/2018 04690 EST. PATIENT, LEVEL III Diagnosis: Acute laryngopharyngitis[ICD10: J06.0] Diagnosis: Cough[ICD10: R05] Madeline Ha MD, [facility] CPT-4: 58319 09/30/2018 ([id number]) 33988 EST. PATIENT, LEVEL III Diagnosis: Acute recurrent maxillary sinusitis[ICD10: J01.01] Diagnosis: Cough[ICD10: R05] Diagnosis: Type 2 diabetes mellitus with hyperglycemia[ICD10: E11.65] Marcela Ha MD, [facility] CPT-4: 45559 09/09/2018 ([id number]) 42117 EST. PATIENT, LEVEL IV Diagnosis: Essential (primary) hypertension[ICD10: I10] Diagnosis: Mixed hyperlipidemia[ICD10: E78.2] Diagnosis: Bipolar disorder, current episode depressed, moderate[ICD10: F31.32] Diagnosis: Type 2 diabetes mellitus with other specified complication[ICD10: E11.69] Melida Ha MD, [facility] CPT-4: 60144 07/22/2018 ([id number]) 47715 EST. PATIENT, LEVEL III Diagnosis: Insomnia due to medical condition[ICD10: G47.01] Marcela Ha MD, [facility] CPT-4: 74796 07/16/2018 ([id number]) Miscellaneous no charge Diagnosis: Cough[ICD10: R05] Madeline Ha MD, [facility] CPT-4: 62592 07/01/2018 09861 EST. PATIENT, LEVEL III Diagnosis: Cough[ICD10: R05] Diagnosis: Acute laryngopharyngitis[ICD10: J06.0] Diagnosis: Other allergic rhinitis[ICD10: J30.89] Madeline Ha MD, [facility] CPT- 4: 90699 06/28/2018 ([id number]) 44422 EST. PATIENT, LEVEL IV Diagnosis: Type 2 diabetes mellitus with hyperglycemia[ICD10: E11.65] Diagnosis: Essential (primary) hypertension[ICD10: I10] Melida Ha MD, [facility] CPT-4: 24056 06/18/2018 ([id number]) 28780 EST. PATIENT, LEVEL IV Diagnosis: Type 2 diabetes mellitus with hyperglycemia[ICD10: E11.65] Diagnosis: Essential (primary) hypertension[ICD10: I10] Diagnosis: Localized edema[ICD10: R60.0] Melida Ha MD, [facility] CPT-4: 22558 06/04/2018 ([id number]) 96267 EST. PATIENT, LEVEL III Diagnosis: Type 2 diabetes mellitus with hyperglycemia[ICD10: E11.65] Diagnosis: Myalgia[ICD10: M79.1] Diagnosis: Pain in right hip[ICD10: M25.551] Diagnosis: Pain in left hip[ICD10: M25.552] Marcela Ha MD, [facility] CPT- 4: 17159 05/13/2018 ([id number]) 66115 EST. PATIENT, LEVEL III Diagnosis: Myalgia[ICD10: M79.1] Diagnosis: Pain in right hip[ICD10: M25.551] Diagnosis: Pain in left hip[ICD10: M25.552] Marcela Ha MD, [facility] CPT- 4: 78595 05/02/2018 ([id number]) 00338 EST. PATIENT, LEVEL IV Diagnosis: Essential (primary) hypertension[ICD10: I10] Diagnosis: Type 2 diabetes mellitus with hyperglycemia[ICD10: E11.65] Diagnosis: Major depressive disorder, single episode, moderate[ICD10: F32.1] Diagnosis: Myalgia[ICD10: M79.1] Marcela Ha MD, [facility] CPT-4: 58968 04/29/2018 ([id number]) 81821 EST. PATIENT, LEVEL IV Diagnosis: Type 2 diabetes mellitus with hyperglycemia[ICD10: E11.65] Diagnosis: Essential (primary) hypertension[ICD10: I10] Diagnosis: Major depressive disorder, single episode, moderate[ICD10: F32.1] Melida Ha MD, [facility] CPT-4: 86589 03/13/2018 ([id number]) 91711 EST. PATIENT, LEVEL III Diagnosis: Type 2 diabetes mellitus with hyperglycemia[ICD10: E11.65] Diagnosis: Bipolar disorder, current episode depressed, moderate[ICD10: F31.32] Diagnosis: Orthostatic hypotension[ICD10: I95.1] Marcela Ha MD, [facility] CPT-4: 72248 03/07/2018 ([id number]) 89929 EST. PATIENT, LEVEL IV Diagnosis: Type 2 diabetes mellitus with hyperglycemia[ICD10: E11.65] Diagnosis: Major depressive disorder, single episode, moderate[ICD10: F32.1] Diagnosis: Orthostatic hypotension[ICD10: I95.1] Diagnosis: Other fatigue[ICD10: R53.83] Marcela Ha MD, [facility] CPT-4: 73942 02/28/2018 41796 EST. PATIENT, LEVEL IV Diagnosis: Other fatigue[ICD10: R53.83] Diagnosis: Other malaise[ICD10: R53.81] Diagnosis: Gastro-esophageal reflux disease without esophagitis[ICD10: K21.9] Madeline Ha MD, [facility] CPT-4: 44301 02/13/2018 ([id number]) 02396 EST. PATIENT, LEVEL IV Diagnosis: Type 2 diabetes mellitus with foot ulcer[ICD10: E11.621] Diagnosis: Essential (primary) hypertension[ICD10: I10] Diagnosis: Gastro-esophageal reflux disease without esophagitis[ICD10: K21.9] Marcela Ha MD, [facility] CPT-4: 15725 01/29/2018 12065 EST. PATIENT, LEVEL III Diagnosis: Other malaise[ICD10: R53.81] Diagnosis: Other fatigue[ICD10: R53.83] Diagnosis: Pain in right shoulder[ICD10: M25.511] Diagnosis: Pain in left shoulder[ICD10: M25.512] Madeline Ha MD, [facility] CPT- 4: 03912 08/27/2017 ([id number]) 67566 EST. PATIENT, LEVEL IV Diagnosis: Essential (primary) hypertension[ICD10: I10] Diagnosis: Type 2 diabetes mellitus with hyperglycemia[ICD10: E11.65] Diagnosis: VACCIN FOR INFLUENZA[ICD10: Z23] Melida Ha MD, [facility] CPT-4: 49104 08/16/2017 71733 EST. PATIENT, LEVEL III Diagnosis: Zoster without complications[ICD10: B02.9] Madeline Ha MD, [facility] CPT-4: 46906 07/26/2017 ([id number]) 68218 EST. PATIENT, LEVEL III Diagnosis: Cellulitis of right lower limb[ICD10: L03.115] Marcela Ha MD, [facility] CPT-4: 56300 07/03/2017 79414 EST. PATIENT, LEVEL II Diagnosis: Laceration without foreign body of left forearm, initial encounter[ICD10: S51.812A] Marcela Ha MD, [facility] CPT-4: 92606 06/29/2017 ([id number]) 79175 EST. PATIENT, LEVEL III Diagnosis: Cellulitis of right lower limb[ICD10: L03.115] Diagnosis: Type 2 diabetes mellitus with foot ulcer[ICD10: E11.621] Marcela Ha MD [facility] CPT-4: 64754 06/18/2017 ([id number]) 24154 EST. PATIENT, LEVEL IV Diagnosis: Cellulitis of right lower limb[ICD10: L03.115] Diagnosis: Acute laryngopharyngitis[ICD10: J06.0] Diagnosis: Gastro-esophageal reflux disease without esophagitis[ICD10: K21.9] Marcela Ha MD [facility] CPT-4: 23675 06/07/2017 ([id number]) 29543 EST. PATIENT, LEVEL III Diagnosis: Type 2 diabetes mellitus with hyperglycemia[ICD10: E11.65] Diagnosis: Insect bite (nonvenomous) of abdominal wall, initial encounter[ICD10: S30.861A] Marcela Ha MD [facility] CPT-4: 18107 05/17/2017 ([id number]) 75668 EST. PATIENT, LEVEL III Diagnosis: Allergic contact dermatitis due to plants, except food[ICD10: L23.7] Melida Ha MD [facility] CPT-4: 71688 05/04/2017 ([id number]) 64142 EST. PATIENT, LEVEL III Diagnosis: Essential (primary) hypertension[ICD10: I10] Marcela Ha MD [facility] CPT-4: 44667 03/15/2017 ([id number]) 15745 EST. PATIENT, LEVEL III Diagnosis: Cough[ICD10: R05] Diagnosis: Essential (primary) hypertension[ICD10: I10] Marcela Ha MD [facility] CPT-4: 53794 03/01/2017 ([id number]) 55694 EST. PATIENT, LEVEL III Diagnosis: Cough[ICD10: R05] Diagnosis: Nasal congestion[ICD10: R09.81] Diagnosis: Acute recurrent maxillary sinusitis[ICD10: J01.01] Marcela Ha MD [facility] CPT-4: 79284 02/16/2017 ([id number]) 36479 EST. PATIENT, LEVEL III Diagnosis: Type 2 diabetes mellitus with hyperglycemia[ICD10: E11.65] Marcela Ha MD [facility] CPT-4: 28782 02/12/2017 ([id number]) 51579 EST. PATIENT, LEVEL IV Diagnosis: Type 2 diabetes mellitus with hyperglycemia[ICD10: E11.65] Diagnosis: Muscle weakness (generalized)[ICD10: M62.81] Diagnosis: Disorientation, unspecified[ICD10: R41.0] Marcela Ha MD, [facility] CPT-4: 95132 02/05/2017 ([id number]) Patient admitted to the hospital from clinic (NO CHARGE) Diagnosis: Type 2 diabetes mellitus with hyperglycemia[ICD10: E11.65] Diagnosis: Disorientation, unspecified[ICD10: R41.0] Diagnosis: Muscle weakness (generalized)[ICD10: M62.81] Marcela aH MD [facility] CPT-4: 22109W 01/29/2017 ([id number]) Miscellaneous no charge Diagnosis: Cellulitis of right lower limb[ICD10: L03.115] Marcela Ha MD, [facility] CPT-4: 35487 10/13/2016 ([id number]) Miscellaneous no charge Diagnosis: Type 2 diabetes mellitus with foot ulcer[ICD10: E11.621] Diagnosis: Pain in right foot[ICD10: M79.671] Marcela Ha MD [facility] CPT- 4: 30523 10/09/2016 [id number] EST. PATIENT, LEVEL II Diagnosis: Cellulitis of right lower limb[ICD10: L03.115] Marcela Ha MD, [facility] CPT-4: 76329 10/06/2016 ([id number]) [id number] EST. PATIENT, LEVEL IV Diagnosis: Low back pain[ICD10: M54.5] Diagnosis: Other deformities of toe(s) (acquired), left foot[ICD10: M20.5X2] Diagnosis: Type 2 diabetes mellitus with foot ulcer[ICD10: E11.621] Marcela Ha MD, [facility] CPT-4: 19059 07/18/2016 ([id number]) [id number] EST. PATIENT, LEVEL III Diagnosis: Type 2 diabetes mellitus with hyperglycemia[ICD10: E11.65] Marcela Ha MD, [facility] CPT-4: 78725 06/22/2016 ([id number]) [id number] EST. PATIENT, LEVEL IV Diagnosis: Type 2 diabetes mellitus with hyperglycemia[ICD10: E11.65] Diagnosis: Mixed hyperlipidemia[ICD10: E78.2] Diagnosis: Other hemoglobinopathies[ICD10: D58.2] Marcela Ha MD, [facility] CPT-4: 38371 05/23/2016 ([id number]) [id number] EST. PATIENT, LEVEL IV Diagnosis: Type 2 diabetes mellitus with other specified complication[ICD10: E11.69] Diagnosis: Dehydration[ICD10: E86.0] Marcela Ha MD, [facility] CPT-4: 41033 05/15/2016 ([id number]) OFFICE VISIT, NEW - LEVEL 3 Diagnosis: Allergic contact dermatitis due to plants, except food[ICD10: L23.7] Madeline Ha MD, [facility] CPT-4: 35188 01/20/2016 Plan of Care Planned Activity Notes Codes Status Date Visit Plan: HTN -heart rate not well controlled -decrease valsartan -start metoprolol 25mg daily -return next week for blood pressure check -10 days for appt -discussed scheduling f/u appt with Dr Brennan as well -patient verbalized understanding of plan. 03/07/2019 Appointment: Marcela Oshea WPtel: [address] [place], [place] [phone] (30 min) Complex 03/07/2019 Patient Education: Patient [...] any concerns 02/27/2019 Appointment: Marcela Oshea WPtel: [address] [place], [place] [phone] (30 min) Complex 02/27/2019 Patient Education: Patient Medication Summary Completed 02/27/2019 Visit Plan: Orthostasis -decrease coreg -monitor symptoms and follow up in 10 days- sooner if needed Fatigue-check labs 02/17/2019 Appointment: Marcela Oshea WPtel: [facility]5 [phone] (30 min) Complex 02/17/2019 Patient Education: Patient Medication Summary Completed 02/17/2019 Appointment: Marcela Oshea WPtel: [address] [place], [place] [phone] (30 min) Complex 01/14/2019 Visit Plan: Hypertension [...] Summary Completed 01/13/2019 Appointment: Marcela Oshea WPtel: [facility]5 [phone] [place] (30 min) Complex 01/10/2019 Visit Plan: Epigastric pain -start protonix daily- monitor symptoms Chest pain -work up negative done last week with Madeline-recommend appt with Dr Brennan Joint pain-check inflammation makers DM-check Hgb a1c 12/31/2018 Appointment: Marcela Oshea WPtel: [address] [place], [place] [phone] [place] (15 min) Moderate 12/31/2018 Patient Education: Patient Medication Summary Completed 12/31/2018 Visit Plan: chest pain - EKG and cardiac enzymes OK - discussed with Dr. Ha - will treat for pneumonia - pt is to notify clinic if symptoms do not improve, if they worsen, or with any changes questions, or concerns. 12/26/2018 Appointment: Mad[facility]el[facility] (30 min) Complex 12/26/2018 Patient Education: Patient Medication Summary Completed 12/26/2018 Referral: Andrew Cross Patient informed. Referral info faxed. Completed 11/26/2018 Visit Plan: cough - improved - continue with inhalers - continue with symbicort - rx for proair for PRN use when pt is feelign short of breath with activity. 11/18/2018 Appointment: Melida Ha WPtel: [phone] [facility] (15 min) Moderate 11/18/2018 Patient Education: Patient [...] of plan. 11/12/2018 Appointment: Marcela Oshea WPtel: [facility]6 [phone] [place] (30 min) Complex 11/12/2018 Patient Education: Patient Medication Summary Completed 11/12/2018 Patient Education: Symbicort - 18-64 - eCopay Completed 11/12/2018 Care Plan: Referral Order SNOMED-CT : [id number] Pending 11/12/2018 Referral: Niko Mantilla Referral Completed 11/04/2018 Visit Plan: Pneumonia, cough - recent diagnosis of Moraxella Cattharalis - with sensitivity to levaquin - will give 2 wks of levaquin since he had improvement but no full resolution of symptoms. 10/30/2018 Appointment: Melida Ha WPtel: [phone] [facility] [place] 30 min appointments only in this slot 10/30/2018 Patient Education: Patient Medication Summary Completed 10/30/2018 Visit Plan: Right hand-joint pain and swelling -negative for gout -treated for cellulitis right 2nd mcp joint -now having difficulty with long finger "locking" -Dr Ha in to evaluate patient and tape index and long finger in place-refer to Dr Mantilla for evaluation 10/24/2018 Appointment: Marcela Oshea WPtel: [phone] [phone] (30 min) Complex 10/24/2018 Patient Education: Patient Medication Summary Completed 10/24/2018 Care Plan: Referral Order SNOMED-CT : [id number] Pending 10/24/2018 Visit Plan: Hypotension - discussed [...] less controlled. 10/23/2018 Appointment: [facility] (15 min) Moderate 10/23/2018 Patient Education: [...] documentation by the nurse practitioner in the [facility], physical exam, and the assessment and plan. [...] plan. 10/21/2018 Appointment: [phone] (30 min) Complex 10/21/2018 Patient Education: Patient [...] discharge. 10/17/2018 Appointment: Madeline Kennedy [facility]Ptel: [phone] (15 min) Moderate 10/17/2018 Patient Education: Patient [...] acutely worsen. 10/14/2018 Appointment: Marcela Oshea WPtel: [facility]5 [phone] (15 min) Moderate 10/14/2018 Patient Education: Patient Medication Summary Completed 10/14/2018 Care Plan: CHEST X-RAY 2VW FRONTAL&LATL LOINC : 40720-4 Pending 10/14/2018 Visit Plan: URI - Pt [...] allergy spray. 09/30/2018 Appointment: Madeline Kennedy WPtel: [facility] (15 min) Moderate 09/30/2018 Patient Education: Patient [...] Hgb A1C 09/09/2018 Appointment: Marcela Oshea WPtel: [phone] [phone] (15 min) Moderate 09/09/2018 Patient Education: Patient Medication Summary Completed 09/09/2018 Patient Education: Patient Medication Summary Completed 09/06/2018 Patient Education: Cholesterol Management Completed 09/06/2018 Care Plan: Comp Metabolic Pending 09/06/2018 Care Plan: Cbc With Differential Pending 09/06/2018 Care Plan: %Hba1C [facility] : 90620-6 Pending 09/06/2018 Care Plan: Tsh Pending 09/06/2018 Care Plan: Lipid Pending 09/06/2018 Appointment: Marcela Oshea WPtel: [facility]5 [phone] [place] (15 min) Moderate 08/26/2018 Appointment: Marcela Oshea WPtel: [facility]5 [phone] [place] (15 min) Moderate 08/23/2018 Visit Plan: [...] in clinic. 07/22/2018 Appointment: Melida Ha WPtel: [facility]3 [facility] (15 min) Moderate 07/22/2018 Patient [...] insomnia. 07/16/2018 Appointment: Marcela Oshea WPtel: [phone] [phone] [place] (30 min) Complex 07/16/2018 Patient Education: Patient Medication Summary Completed 07/16/2018 Visit Plan: cough - improved - notify clinic if symptoms do not completely resolve, or with any questions or concerns. 07/01/2018 Appointment: Madeline Kennedy WPtel: [phone] [facility]6[address] (15 min) Moderate 07/01/2018 Patient [...] allergy spray. 06/28/2018 Appointment: Madeline Kennedy WPtel: [phone] [facility] [place] (15 min) Moderate 06/28/2018 Patient Education: Patient Medication Summary Completed 06/28/2018 Patient Education: Patient Medication Summary Completed 06/21/2018 Care Plan: Annabel RICKS [place] Pending 06/21/2018 Visit Plan: Diabetes Mellitus - [...] home. 06/18/2018 Appointment: [phone] (15 min) Moderate 06/18/2018 Patient Education: [...] swelling improves. 06/04/2018 Appointment: [phone] (15 min) Moderate 06/04/2018 Patient Education: [...] allow for greater blood glucose control. Joint hkwz-ynnbtrtd-nyvebug-symptoms have improved -stop meloxicam due to upset stomach-call if symptoms return 05/13/2018 Appointment: Marcela Oshea WPtel: [phone] [phone] (30 min) Complex 05/13/2018 Patient Education: Patient Medication Summary Completed 05/13/2018 Visit Plan: Bilateral hip tlxu-pcfbaejk-mommrld IM injection administered today for c/o continued myalgia/arthralgia. Patient to start taking Meloxicam 15mg PO daily. Advised to return to clinic if symptoms do not improve. 05/02/2018 Appointment: Marcela Oshea WPtel: [facility]5 [phone] (30 min) Complex 05/02/2018 Patient Education: Patient [...] readings at home. Diabetes Mellitus -check labs Rfuiezvh-mvytsaw-hojn bite-rx for doxycycline-follow up in 2 weeks 04/29/2018 Appointment: Marcela Oshea WPtel: [facility]5 [phone] [place] (15 min) Moderate 04/29/2018 Patient Education: Patient Medication Summary Completed 04/29/2018 Appointment: [phone] [place] (15 min) Moderate 04/15/2018 Appointment: Marcela Oshea WPtel: [phone] (30 min) Complex 03/21/2018 Visit Plan: Hypertension [...] on cymbalta 03/13/2018 Appointment: Melida Ha WPtel: [facility] (30 min) Complex 03/13/2018 Patient Education: Patient Medication Summary Completed 03/13/2018 Visit Plan: DM-continue same medications-monitor blood sugars routinely as directed -rx for new glucometer and test strips provided Bipolar- currently depressed-patient start on vraylar-follow up in 2 weeks, sooner if needed. Patient and verbalied understanding of plan. Hypotension-stay off losartan 03/07/2018 Appointment: Marcela Oshea WPtel: [phone] (30 min) Complex 03/07/2018 Patient Education: Patient Medication Summary Completed 03/07/2018 Appointment: Melida Ha WPtel: [facility] (15 min) Moderate 03/04/2018 Visit Plan: [...] patient. 02/28/2018 Appointment: [facility]Ptel[phone] (30 min) Complex 02/28/2018 Patient Education: Patient [...] improving. 02/13/2018 Appointment: Madeline Kennedy [facility]Ptel: [phone] (15 min) Moderate 02/13/2018 Patient Education: Patient Medication Summary Completed 02/13/2018 Referral: Sun Glynn Patient informed. Referral info faxed. Completed 02/01/2018 Visit Plan: DM-weight loss-not checking blood sugars-patient sent for labs today HTN-low ntctg-usdkikl-insdn labs Callus of foot and fissue of heel-refer to Dr Glynn for evaluation Esophageal Reflux - the patient has been counseled against excessive intake of caffeine, spicy foods, peppermint, and cinnamon - all of which can exacerbate esophageal reflux. The patient is to take medications as prescribed and call the office if the symptoms are not improving. 01/29/2018 Appointment: Marcela Oshea WPtel: [phone] [phone] (30 min) Complex 01/29/2018 Patient Education: Patient Medication Summary Completed 01/29/2018 Care Plan: Comp Metabolic Cancelled 01/29/2018 Care Plan: Cbc With Differential Cancelled 01/29/2018 Care Plan: %Hba1C LOINC : 07794-8 Cancelled 01/29/2018 Care Plan: Referral Order SNOMED-CT : [id number] Cancelled 01/29/2018 Visit Plan: Fatigue, malaise, joint [...] or concerns. 08/27/2017 Appointment: Madeline Kennedy WPtel: [facility]0 [facility] (15 min) Moderate 08/27/2017 Patient Education: Patient [...] - 08/16/2017 Appointment: Melida Ha WPtel: [phone] [facility] (30 min) Complex 08/16/2017 Patient Education: Patient Medication Summary Completed 08/16/2017 Patient Education: Obesity Completed 08/16/2017 Appointment: Madeline Kennedy [facility]Ptel: [phone] (30 min) Complex 08/07/2017 Visit Plan: Shingles [...] considered contagious. 07/26/2017 Appointment: Madeline Kennedy WPtel: [facility]5 [facility] (15 min) Moderate 07/26/2017 Patient Education: Patient Medication Summary Completed 07/26/2017 Visit Plan: Cellulitis right foot-cultured today in the office- home health to reapply wound vac--appt with wound care on to evaluate for debridement- 07/03/2017 Appointment: Marcela Oshea WPtel: [phone] (30 min) Complex 07/03/2017 Patient Education: Patient Medication Summary Completed 07/03/2017 Visit Plan: Abrasion left arm - Pt was instructed to keep the wound clean, wash with antibacterial soap, use triple antibiotic ointment, call if redness, pustular drainage, or any other acute concerns. 06/29/2017 Appointment: Marcela Oshea WPtel: [facility]5 [phone] (15 min) Moderate 06/29/2017 Patient Education: Patient [...] of plan. 06/18/2017 Appointment: Marcela Oshea WPtel: [facility]5 [phone] (15 min) Moderate 06/18/2017 Patient Education: Patient [...] diet-start prilosec 06/07/2017 Appointment: Marcela Oshea WPtel: [facility]1 [phone] (10 min) Simple 06/07/2017 Patient Education: Patient [...] bite-continue doxycycline 05/17/2017 Appointment: Marcela Oshea WPtel: [phone] [phone] (30 min) Complex 05/17/2017 Patient Education: Patient [...] anai edge called into [facility]. 05/04/2017 Appointment: Marcela Oshea WPtel: [phone] [phone] (30 min) Complex 05/04/2017 Patient Education: Patient [...] home. Cough-resolved 03/15/2017 Appointment: Marcela Oshea WPtel: [facility]7 [phone] (15 min) Moderate 03/15/2017 Patient Education: Patient Medication Summary Completed 03/15/2017 Appointment: [facility]Ptel[phone] (30 min) Complex 03/12/2017 Visit Plan: Feng [...] discussed 02/16/2017 Appointment: [facility]Ptel[phone] (15 min) Moderate 02/16/2017 Patient Education: Patient [...] controlled. 02/12/2017 Appointment: Marcela Oshea WPtel: [phone] [phone] (30 min) Complex 02/12/2017 Patient Education: Patient Medication Summary Completed 02/12/2017 Appointment: Marcela Oshea WPtel: [phone] [phone] (30 min) Complex 02/06/2017 Visit Plan: Diabetes [...] readings are starting to become less controlled. Snixwgwfn-quwnyfga-dqwcdjhy to monitor Generalized weakness-refer for PT-patient refuses today but will consider 02/05/2017 Appointment: Marcela Oshea WPtel: [facility]4 [phone] (30 min) Complex 02/05/2017 Patient Education: Patient Medication Summary Completed 02/05/2017 Appointment: Marcela Oshea WPtel: [facility]7 [phone] [place] (30 min) Complex 01/30/2017 Visit Plan: Acute confusion-uncontrolled diabetes-chronically noncompliant with treatment and stopped his insulin several months ago-r/o stroke vs DKA-Dr Ha in to evaluate patient-plan to admit for further work up and treatment-patient's called and she transported him to the hospital 01/29/2017 Appointment: Marcela Oshea WPtel: [phone] [phone] (30 min) Complex 01/29/2017 Patient Education: Patient Medication Summary Completed 01/29/2017 Patient Education: Obesity Completed 01/29/2017 Visit Plan: Right foot pain-MRI shows foreign body-appt with Dr Grewal for evaluation on Sunday. 10/13/2016 Appointment: Marcela Oshea WPtel: [address] [place], [place] [phone] [place] (15 min) Moderate 10/13/2016 Patient Education: Patient Medication Summary Completed 10/13/2016 Appointment: Marcela Oshea WPtel: [facility]5 [phone] [place] (30 min) Complex 10/12/2016 Visit Plan: Right foot obkk-rwysjpak-jpwdj washer dropped on foot-xray negative but pain continues to increase-recommend MRI of foot for further evaluation-refer to wound care for lesions on right foot, patient has diabetes and history of osteomyelitis-culture obtained today-continue oral abx- follow up in the office on , sooner if needed 10/09/2016 Visit Plan: Right foot megk-waeithtp-dibon washer dropped on foot-xray negative but pain continues to increase-recommend MRI of foot for further evaluation-refer to wound care for lesions on right foot, patient has diabetes and history of osteomyelitis-culture obtained today-continue oral abx- follow up in the office on , sooner if needed 10/09/2016 Visit Plan: Right foot slnh-hrwtovhw-ezqam washer dropped on foot-xray negative but pain continues to increase-recommend MRI of foot for further evaluation-refer to wound care for lesions on right foot, patient has diabetes and history of osteomyelitis-culture obtained today-continue oral abx- follow up in the office on , sooner if needed 10/09/2016 Appointment: Marcela Oshea WPtel: [facility]5 [phone] [place] (30 min) Complex 10/09/2016 Patient Education: Patient Medication Summary Completed 10/09/2016 Visit Plan: Cellulitis - continue with oral antibiotics as previously directed, return to clinic as previously directed, call for acute change in symptoms, worsening redness, warmth, discharge. 10/06/2016 Appointment: Marcela Oshea WPtel: [address] [place], [place] [phone] (10 min) Simple 10/06/2016 Patient Education: Patient Medication Summary Completed 10/06/2016 Appointment: Marcela Oshea WPtel: [address] [place], [place] [phone] [place] [address] (30 min) Complex 08/24/2016 Referral: Sun Glynn Referral Completed 07/21/2016 Visit Plan: Low back pain- history of spinal fusion-patient for xray lumbar spine-RX sent to [facility] pharmacy and instructed on use- topical voltaren samples provided and instructed on use. Ok to use tylenol as n eeded as well. The patient is to call the office if the pain is worsening or does not improve. Pressure ulcer left 4th toe-refer to Dr Glynn for evaluation 07/18/2016 Appointment: Marcela Oshea WPtel: [address] [place], [place] [phone] [place] [address] (30 min) Complex 07/18/2016 Patient Education: Patient Medication Summary Completed 07/18/2016 Patient Education: Obesity Completed 07/18/2016 Care Plan: Referral Order SNOMED-CT : [id number] Cancelled 07/18/2016 Visit Plan: Diabetes Mellitus - [...] glucose control. 06/22/2016 Appointment: Marcela Oshea WPtel: [address] [place], [place] [phone] (30 min) Complex 06/22/2016 Patient Education: Patient [...] CBC today 05/23/2016 Appointment: Marcela Oshea WPtel: [phone] (30 min) Complex 05/23/2016 Patient Education: Patient [...] of plan. 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 Low back pain- history of spinal fusion-patient for xray lumbar spine-RX sent to [facility] and instructed on use-topical [...] for fracture from injury . Right foot dryg-pddizltg-tvrou washer dropped on foot-xray negative but pain [...] for fracture from injury . Right foot shvt-fxgypdrm-sbgui washer dropped on foot-xray negative but pain [...] for fracture from injury . Right foot rqzr-crzqxuaz-zrwzi washer dropped on foot-xray negative but pain [...] if needed Fatigue-check labs . Bilateral hip wkgb-dcbckjsz-vtcjdfn IM injection administered today for c/o continued myalgia/arthralgia. Patient to start taking Meloxicam 15mg PO daily. Advised to return to clinic if symptoms do not improve. . DM-weight loss-not checking blood sugars-patient sent for labs today HTN-low dqtxx-rvrqnlg-itmvf labs Callus of foot and fissue of [...] readings are starting to become less controlled. 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 HTN -heart rate not well controlled -decrease [...] allow for greater blood glucose control. Joint kyxo-wipdtzbu-mihwmsc-symptoms have improved -stop meloxicam due to upset [...] readings at home. Diabetes Mellitus -check labs Quiiofiy-dvwumfp-swep bite-rx for doxycycline-follow up in 2 weeks [...]
--- OUTSIDE RECORDS SUMMARY | 2019-04-08 20:46 | XMS REPORT | CCD ---
Author Author Madeline Kennedy MD, [facility] Address [address] [place] [address] Phone Care Team Providers Care Systems Integration Engineer Name Role Phone PP Unavailable CCM Unavailable Summary Purpose Interface Exchange Insurance Providers Payer name Policy type / Coverage type Covered green party ID Effective Begin Date Effective End Date [place] [employer] Commercial Insurance [id number] Unknown Family history Father Diagnosis Age At Onset Hyperlipidemia Unknown Heart Attack Unknown Mother Diagnosis Age At Onset Hypertension Unknown Social History Social History Element Codes Description Effective Dates Marital status Unknown Mignon 01/20/2016 Number of children Unknown 4 01/20/2016 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/[address]: 592771088 Never smoker 01/20/[address]: 771308524 Never drinks alcohol 01/20/2016 Allergies, Adverse Reactions, [...] Active 08/27/2017 Unknown 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 [...] R53.83 08/27/2017 Active 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 [...] Fill Instructions Topamax 25 mg tablet RxNorm: 858726 1 Tablet(s) PO BID 03/11/2019 04/09/2019 Active Topamax 25 mg tablet RxNorm: 932766 1 Tablet(s) PO BID 03/11/2019 03/10/2019 Inactive valsartan 40 mg tablet RxNorm: 482104 1/2 Tablet(s) PO daily 03/07/2019 09/02/2019 Active metoprolol succinate ER 25 mg tablet,extended release 24 hr RxNorm: 110127 1 Tablet(s) PO QPM 03/07/2019 09/02/2019 Active Cymbalta 30 mg capsule,delayed release RxNorm: 436408 1 Capsule(s) PO daily 02/27/2019 No Stop Date Active Lyrica 50 mg capsule RxNorm: 114594 Capsule(s) PO daily 02/26/2019 06/25/2019 Active Cymbalta 60 mg capsule,delayed release RxNorm: 437360 1 Capsule(s) PO QAM 02/19/2019 02/26/2019 Inactive will call for refill- dose change Coreg 6.25 mg tablet RxNorm: 379463 1 Tablet(s) daily 02/19/2019 02/26/2019 Inactive clonazepam 1 mg tablet RxNorm: 332204 2 Tablet(s) PO HS 02/18/2019 06/14/2019 Active Tresiba FlexTouch U-200 insulin 200 unit/mL (3 mL) subcutaneous pen RxNorm: 8529345 50 Unit(s) SQ daily 01/08/2019 05/07/2019 Active please give him 30 day supply Protonix 40 mg tablet,delayed release RxNorm: 909959 1 Tablet(s) PO daily 12/31/2018 01/29/2019 Inactive Tresiba FlexTouch U-200 insulin 200 unit/mL (3 mL) subcutaneous pen RxNorm: 2957296 50 Unit(s) SQ daily 12/31/2018 01/07/2019 Inactive please give him 30 day supply Augmentin 500 mg-125 mg tablet RxNorm: 856989 1 Tablet(s) PO TID 12/26/2018 01/04/2019 Inactive Augmentin 500 mg-125 mg tablet RxNorm: 584542 1 Tablet(s) PO TID 12/26/2018 12/25/2018 Inactive ProAir HFA 90 mcg/actuation aerosol inhaler RxNorm: 4988422 2 Puff(s) INH QID as needed 11/18/2018 No Stop Date Active Lyrica 50 mg capsule RxNorm: 153658 Capsule(s) PO daily 11/13/2018 02/07/2019 Inactive Cymbalta 30 mg capsule,delayed release RxNorm: 851531 1 Capsule(s) PO QAM 11/13/2018 02/18/2019 Inactive Lyrica 50 mg capsule RxNorm: 470355 Capsule(s) PO daily 11/13/2018 11/12/2018 Inactive Symbicort 160 mcg-4.5 mcg/actuation HFA aerosol inhaler RxNorm: 3371918 2 Puff(s) INH BID 11/12/2018 12/11/2018 Inactive albuterol sulfate 2.5 mg/3 mL (0.083 %) solution for nebulization RxNorm: 158627 3 Milliliter(s) INH UD 11/07/2018 No Stop Date Active azithromycin 500 mg tablet RxNorm: 703798 500mg on day 1 then 250 mg daily x 4 more day Tablet(s) PO 11/07/2018 11/06/2018 Inactive 500mg on day 1 and then 250mg daily 2-4 cefdinir 300 mg capsule RxNorm: 717188 1 Capsule(s) PO BID 11/07/2018 11/06/2018 Inactive azithromycin 500 mg tablet RxNorm: 743327 500mg on day 1 then 250 mg daily x 4 more day Tablet(s) PO 11/07/2018 01/07/2019 Inactive 500mg on day 1 and then 250mg daily 2-4 cefdinir 300 mg capsule RxNorm: 962350 1 Capsule(s) PO BID 11/07/2018 11/13/2018 Inactive Levaquin 500 mg tablet RxNorm: 314746 1 Tablet(s) PO daily TAKE ONE TABLET BY MOUTH DAILY UNTIL GONE 10/31/2018 11/13/2018 Inactive Levaquin 500 mg tablet RxNorm: 278185 1 Tablet(s) PO daily 10/30/2018 11/12/2018 Inactive valsartan 80 mg tablet RxNorm: 897268 1/2 Tablet(s) PO daily 10/23/2018 03/06/2019 Inactive doxycycline hyclate 100 mg tablet RxNorm: 7395351 1 Tablet(s) PO BID 10/21/2018 10/27/2018 Inactive ketorolac 60 mg/2 mL intramuscular solution RxNorm: 1237792 Milliliter(s) IM 10/21/2018 10/21/2018 Inactive Levaquin 500 mg tablet RxNorm: 884310 1 Tablet(s) PO daily 10/17/2018 10/31/2018 Inactive Tessalon Perles 100 mg capsule RxNorm: 218836 1-2 Capsule(s) PO TID PRN 10/14/2018 No Stop Date Active albuterol sulfate 2.5 mg/3 mL (0.083 %) solution for nebulization RxNorm: 963055 3 Milliliter(s) INH UD 10/14/2018 11/06/2018 Inactive Levaquin 500 mg tablet RxNorm: 885718 1 Tablet(s) PO daily 10/14/2018 10/16/2018 Inactive albuterol sulfate 2.5 mg/3 mL (0.083 %) solution for nebulization RxNorm: 697740 3 Milliliter(s) INH UD 09/30/2018 10/13/2018 Inactive Kenalog 40 mg/mL suspension for injection RxNorm: 6071521 1.5 Milliliter(s) Inj 09/30/2018 09/30/2018 Inactive Coreg 6.25 mg tablet RxNorm: 716573 TAKE ONE TABLET BY MOUTH TWICE A DAY 09/30/2018 02/18/2019 Inactive Keflex 500 mg capsule RxNorm: 066025 1 Capsule(s) PO TID 09/27/2018 10/03/2018 Inactive prednisone 20 mg tablet RxNorm: 830385 2 Tablet(s) PO daily 09/27/2018 09/29/2018 Inactive Kenalog 40 mg/mL suspension for injection RxNorm: 8710283 Milliliter(s) Inj 09/11/2018 09/11/2018 Inactive Zyrtec 10 mg tablet RxNorm: 6651144 1 Tablet(s) PO daily 09/09/2018 10/08/2018 Inactive Keflex 500 mg capsule RxNorm: 828029 1 Capsule(s) PO TID 09/09/2018 09/15/2018 Inactive Tresiba FlexTouch U-200 insulin 200 unit/mL (3 mL) subcutaneous pen RxNorm: 9492545 50 Unit(s) SQ daily 08/30/2018 08/29/2018 Inactive please give him 30 day supply Tresiba FlexTouch U-200 insulin 200 unit/mL (3 mL) subcutaneous pen RxNorm: 4709140 50 Unit(s) SQ daily 08/30/2018 09/28/2018 Inactive please give him 30 day supply Novolog Flexpen U-100 Insulin aspart 100 unit/mL subcutaneous RxNorm: 9721413 8 Unit(s) SQ AC 08/13/2018 No Stop Date Active Novolog Flexpen U-100 Insulin aspart 100 unit/mL subcutaneous RxNorm: 6085913 8 Unit(s) SQ AC 07/22/2018 2018 Inactive this is an update on his medication Novolog Flexpen U-100 Insulin aspart 100 unit/mL subcutaneous RxNorm: 6539433 12 Unit(s) SQ AC 07/05/2018 07/21/2018 Inactive this is an update on his medication Toujeo SoloStar U-300 Insulin 300 unit/mL (1.5 mL) subcutaneous pen RxNorm: 7800353 INJECT 50 UNITS UNDER THE SKIN DAILY 07/01/2018 08/29/2018 Inactive Mucinex 600 mg tablet, extended release RxNorm: 849034 1 Tablet(s) PO BID 06/28/2018 07/04/2018 Inactive Zofran 4 mg tablet RxNorm: 111367 1 Tablet(s) PO TID as needed nausea 06/28/2018 07/02/2018 Inactive Kenalog 40 mg/mL suspension for injection RxNorm: 3309069 Milliliter(s) Inj 06/28/2018 06/28/2018 Inactive Flonase Allergy Relief 50 mcg/actuation nasal spray,suspension RxNorm: 6021045 1 [place] NASAL BID 06/28/2018 07/08/2018 Inactive Lyrica 50 mg capsule RxNorm: 220141 Capsule(s) PO daily 06/24/2018 07/06/2018 Inactive Novolog Flexpen U-100 Insulin aspart 100 unit/mL subcutaneous RxNorm: 7014009 10 Unit(s) SQ AC 06/18/2018 07/04/2018 Inactive this is an update on his medication Lasix 20 mg tablet RxNorm: 816866 1 Tablet(s) PO BIW 06/12/2018 07/02/2018 Inactive atorvastatin 80 mg tablet RxNorm: 063486 1 Tablet(s) PO QHS 06/10/2018 12/06/2018 Inactive clonazepam 1 mg tablet RxNorm: 534653 2 Tablet(s) PO HS as needed 06/10/2018 06/08/2018 Inactive clonazepam 1 mg tablet RxNorm: 788883 2 Tablet(s) PO HS 06/10/2018 02/17/2019 Inactive Lyrica 50 mg capsule RxNorm: 835568 Capsule(s) PO daily 06/10/2018 07/08/2018 Inactive Lasix 20 mg tablet RxNorm: 1 Tablet(s) PO TIW 06/04/2018 06/11/2018 Inactive Toujeo SoloStar U-300 Insulin 300 unit/mL (1.5 mL) subcutaneous pen RxNorm: 6730633 50 Unit(s) SQ daily 05/07/2018 06/30/2018 Inactive meloxicam 15 mg tablet RxNorm: 152610 15 Milligram(s) PO daily 05/02/2018 05/12/2018 Inactive ketorolac 30 mg/mL injection solution RxNorm: 431154 2 Milliliter(s) Inj 05/02/2018 05/02/2018 Inactive Toujeo SoloStar U-300 Insulin 300 unit/mL (1.5 mL) subcutaneous pen RxNorm: 1031495 45 Unit(s) daily 04/29/2018 05/02/2018 Inactive clonazepam 1 mg tablet RxNorm: 849973 1 Tablet(s) PO Q8 as needed 04/29/2018 06/09/2018 Inactive doxycycline hyclate 100 mg tablet RxNorm: 8325480 1 Tablet(s) PO BID 04/29/2018 05/12/2018 Inactive Cymbalta 30 mg capsule,delayed release RxNorm: 521166 1 Capsule(s) PO QAM 03/13/2018 10/08/2018 Inactive Lexapro 10 mg tablet RxNorm: 369162 1 Tablet(s) PO QPM 02/28/2018 03/03/2018 Inactive Toujeo SoloStar U-300 Insulin 300 unit/mL (1.5 mL) subcutaneous pen RxNorm: 6487791 20 Unit(s) daily 02/28/2018 03/03/2018 Inactive Protonix 40 mg tablet,delayed release RxNorm: 048499 1 Tablet(s) PO daily 01/29/2018 06/09/2018 Inactive clonazepam 1 mg tablet RxNorm: 850852 1 Tablet(s) PO Q8 as needed 12/12/2017 03/10/2018 Inactive Tamiflu 75 mg capsule RxNorm: 382972 1 Capsule(s) PO BID 11/29/2017 12/03/2017 Inactive doxycycline hyclate 100 mg capsule RxNorm: 4176170 1 Capsule(s) PO BID 09/07/2017 09/20/2017 Inactive doxycycline hyclate 100 mg capsule RxNorm: 4838355 1 Capsule(s) PO BID 08/27/2017 09/06/2017 Inactive prednisone 20 mg tablet RxNorm: 101442 2 Tablet(s) PO daily 08/27/2017 08/31/2017 Inactive clopidogrel 75 mg tablet RxNorm: 900452 1 Tablet(s) PO daily 08/24/2017 06/09/2018 Inactive atorvastatin 40 mg tablet RxNorm: 144063 1 Tablet(s) PO QHS 08/24/2017 02/27/2018 Inactive losartan 25 mg tablet RxNorm: 549443 TAKE ONE TABLET BY MOUTH DAILY 08/22/2017 06/09/2018 Inactive Toujeo SoloStar 300 unit/mL (1.5 mL) subcutaneous insulin pen RxNorm: 2112853 45 Unit(s) daily 08/17/2017 08/20/2017 Inactive mupirocin 2 % topical ointment RxNorm: 420514 1 Application TOP TID to the lesions on chest 08/16/2017 08/25/2017 Inactive Toujeo SoloStar 300 unit/mL (1.5 mL) subcutaneous insulin pen RxNorm: 0362376 40 Unit(s) daily 08/16/2017 08/16/2017 Inactive valacyclovir 1 gram tablet RxNorm: 891035 1 Tablet(s) PO TID 07/26/2017 08/01/2017 Inactive clonazepam 1 mg tablet RxNorm: 797173 1 Tablet(s) PO Q8 as needed 07/03/2017 09/30/2017 Inactive Levaquin 500 mg tablet RxNorm: 415193 1 Tablet(s) PO daily 06/22/2017 06/25/2017 Inactive Levaquin 500 mg tablet RxNorm: 993891 1 Tablet(s) PO daily 06/18/2017 06/21/2017 Inactive losartan 25 mg tablet RxNorm: 856939 1 Tablet(s) PO daily 06/18/2017 08/16/2017 Inactive nystatin 100,000 unit/mL oral suspension RxNorm: 403945 5 Milliliter(s) PO QID Swish et swallow 06/18/2017 06/17/2017 Inactive nystatin 100,000 unit/mL oral suspension RxNorm: 173435 5 Milliliter(s) PO QID Swish et swallow 06/18/2017 06/27/2017 Inactive Cipro 500 mg tablet RxNorm: 895963 1 Tablet(s) PO BID 06/12/2017 06/18/2017 Inactive Cipro 500 mg tablet RxNorm: 666126 1 Tablet(s) PO BID 06/12/2017 06/11/2017 Inactive Toujeo SoloStar 300 unit/mL (1.5 mL) subcutaneous insulin pen RxNorm: 8418412 INJECT 10 UNITS UNDER THE SKIN DAILY 06/12/2017 08/15/2017 Inactive Keflex 500 mg capsule RxNorm: 800642 1 Capsule(s) PO TID 06/07/2017 06/13/2017 Inactive doxycycline hyclate 100 mg capsule RxNorm: 4776311 1 Capsule(s) PO BID 05/17/2017 05/21/2017 Inactive doxycycline hyclate 100 mg capsule RxNorm: 1329927 1 Capsule(s) PO BID 05/11/2017 05/16/2017 Inactive losartan 25 mg tablet RxNorm: 170135 1 Tablet(s) PO daily 03/01/2017 06/17/2017 Inactive atorvastatin 40 mg tablet RxNorm: 413312 1 Tablet(s) PO daily 03/01/2017 08/23/2017 Inactive clopidogrel 75 mg tablet RxNorm: 072777 1 Tablet(s) PO daily 03/01/2017 08/23/2017 Inactive Flonase Allergy Relief 50 mcg/actuation nasal spray,suspension RxNorm: 0485240 2 [place]y NASAL daily 02/16/2017 02/25/2017 Inactive Augmentin 875 mg-125 mg tablet RxNorm: 598810 1 Tablet(s) PO BID 02/16/2017 02/22/2017 Inactive GET PROBIOTIC TO TAKE WHILE ON ABX Tamiflu 75 mg capsule RxNorm: 886372 1 Capsule(s) PO BID 02/16/2017 02/20/2017 Inactive ceftriaxone 500 mg solution for injection RxNorm: 4152812 1 Milliliter(s) Inj 02/16/2017 02/16/2017 Inactive Kenalog 40 mg/mL suspension for injection RxNorm: 7580966 1 Milliliter(s) Inj 02/16/2017 02/16/2017 Inactive Toujeo SoloStar 300 unit/mL (1.5 mL) subcutaneous insulin pen RxNorm: 7862519 25 Unit(s) SQ QAM 02/12/2017 06/10/2017 Inactive Toujeo SoloStar 300 unit/mL (1.5 mL) subcutaneous insulin pen RxNorm: 1194934 10 Unit(s) SQ QAM 02/05/2017 02/11/2017 Inactive lisinopril 10 mg tablet RxNorm: 198615 1 Tablet(s) PO daily 02/01/2017 02/28/2017 Inactive atorvastatin 40 mg tablet RxNorm: 520469 1 Tablet(s) PO daily 02/01/2017 02/28/2017 Inactive doxycycline hyclate 100 mg capsule RxNorm: 6885326 1 Capsule(s) PO BID 02/01/2017 02/10/2017 Inactive clonazepam 1 mg tablet RxNorm: 588463 1 Tablet(s) PO Q8 as needed 10/09/2016 01/05/2017 Inactive ceftriaxone 1 gram solution for injection RxNorm: 7914890 Inj 10/06/2016 10/06/2016 Inactive cyclobenzaprine 10 mg tablet RxNorm: 748597 1/2-1 Tablet(s) PO TID PRN 07/18/2016 01/28/2017 Inactive clonazepam 1 mg tablet RxNorm: 640184 1 Tablet(s) PO Q8 as needed 05/31/2016 05/29/2016 Inactive clonazepam 1 mg tablet RxNorm: 022640 1 Tablet(s) PO Q8 as needed 05/31/2016 08/28/2016 Inactive Toujeo SoloStar 300 unit/mL (1.5 mL) subcutaneous insulin pen RxNorm: 9161768 10 Unit(s) SQ daily 05/23/2016 01/28/2017 Inactive Crestor 10 mg tablet RxNorm: 875096 1 Tablet(s) PO QHS 05/19/2016 01/28/2017 Inactive Crestor 10 mg tablet RxNorm: 078573 1 Tablet(s) PO QHS 05/19/2016 05/18/2016 Inactive clonazepam 1 mg tablet RxNorm: 307732 1 Tablet(s) PO Q8 as needed 04/25/2016 05/30/2016 Inactive prednisone 20 mg tablet RxNorm: 968749 3 Tablet(s) PO daily 02/11/2016 02/10/2016 Inactive prednisone 20 mg tablet RxNorm: 518059 3 Tablet(s) PO daily 02/11/2016 05/14/2016 Inactive Kenalog 40 mg/mL suspension for injection RxNorm: 4701622 Milliliter(s) Inj 01/20/2016 01/20/2016 Inactive aspirin 81 mg tablet,delayed release RxNorm: 988335 1 Tablet(s) PO daily No Start Date Active Brilinta 90 mg tablet RxNorm: 8598162 1 Tablet(s) PO BID No Start Date Active acetaminophen 500 mg tablet RxNorm: 636059 1-2 Tablet(s) PO as needed No Start Date Active clopidogrel 75 mg tablet RxNorm: 019332 1 Tablet(s) PO daily No Start Date 02/28/2017 Inactive Novolog Flexpen U-100 Insulin aspart 100 unit/mL subcutaneous RxNorm: 4981030 5 units with breakfast lunch and 10 supper Unit(s) SQ No Start Date 06/17/2018 Inactive clonazepam 1 mg tablet RxNorm: 230793 1 Tablet(s) PO QHS No Start Date 04/24/2016 Inactive Coreg 6.25 mg tablet RxNorm: 067553 1 Tablet(s) PO BID No Start Date 09/29/2018 Inactive acyclovir 400 mg tablet RxNorm: 299030 2 Tablet(s) PO 5x daily No Start Date 02/28/2017 Inactive Lyrica 50 mg capsule RxNorm: 818741 Capsule(s) PO BID No Start Date 06/09/2018 Inactive Vraylar 3 mg capsule RxNorm: 4752936 1 Capsule(s) PO daily No Start Date 03/12/2018 Inactive valsartan 80 mg tablet RxNorm: 094721 1 Tablet(s) PO daily No Start Date 10/22/2018 Inactive Medication Administered Medication Codes Instructions Start Date Status ketorolac 60 mg/2 mL intramuscular solution RxNorm: 3787225 Milliliter 10/21/2018 No longer Active Kenalog 40 mg/mL suspension for injection RxNorm: 8760110 1.5Milliliter 09/30/2018 No longer Active Kenalog 40 mg/mL suspension for injection RxNorm: 2272033 Milliliter 09/11/2018 No longer Active Kenalog 40 mg/mL suspension for injection RxNorm: 6525029 Milliliter 06/28/2018 No longer Active ketorolac 30 mg/mL injection solution RxNorm: 581021 2Milliliter 05/02/2018 No longer Active ceftriaxone 500 mg solution for injection RxNorm: 0026467 1Milliliter 02/16/2017 No longer Active Kenalog 40 mg/mL suspension for injection RxNorm: 8353085 1Milliliter 02/16/2017 No longer Active ceftriaxone 1 gram solution for injection RxNorm: 1373822 10/06/2016 No longer Active Kenalog 40 mg/mL suspension for injection RxNorm: 4180272 Milliliter 01/20/2016 No longer Active Immunizations Vaccine Codes Date Status Influenza CVX: 141 07/22/2018 completed Influenza CVX: 141 08/16/2017 completed Assessments Condition Codes Effective Dates Essential (primary) hypertension ICD-10: I10 ICD-9: 401.1 03/07/2019 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-10: I95.2 ICD-9: 458.8 02/27/2019 Other fatigue ICD-10: R53.83 ICD-9: 780.79 02/17/2019 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-10: I25.10 [...] Item Item Code Result Date Culture Sputum 122325 LOWER RESPIRATORY TRACT CULTURE SEE NOTES 11/14/2018 Culture Sputum 101067 LOWER RESPIRATORY TRACT CULTURE SEE NOTES 10/16/2018 LIPID GRP [id number] CHOLESTEROL TNP:Duplicate Order 09/10/2018 LIPID GRP [id number] Triglyceride TNP:Duplicate Order 09/10/2018 LIPID GRP 7981926 HDL CHOLESTEROL TNP:Duplicate Order 09/10/2018 LIPID GRP 3061685 Chol/HDL Ratio TNP:Duplicate Order 09/10/2018 LIPID GRP [id number] LDL Cholesterol TNP:Duplicate Order 09/10/2018 A1C HPLC 3258108 Hgb A1c 66827-0 TNP:Duplicate Order 09/10/2018 C Diff An [id number] GDH TNP:Lab Request 06/22/2018 C Diff An [id number] Toxin A/B TNP:Lab Request 06/22/2018 C Diff An [id number] C Diff Analyzer TNP:Lab Request 06/22/2018 C Diff An [id number] IC OK? TNP:Lab Request 06/22/2018 CBC 4540499 WBC 6.4 10e9/L 05/02/2018 CBC 0322390 RBC 5.60 10e12/L 05/02/2018 CBC 7217582 HEMOGLOBIN 17.0 g/dL 05/02/2018 CBC 0546500 HEMATOCRIT 48.0 % 05/02/2018 CBC 6010119 MCV 85.7 fL 05/02/2018 CBC 0514593 MCH 30.4 pg 05/02/2018 CBC 7320825 MCHC 35.4 g/dL 05/02/2018 CBC 2258493 PLATELET COUNT 166 10e9/L 05/02/2018 CBC 0013711 Mean Plt Volume 11.6 fL 05/02/2018 CBC 6869918 Neut Auto 48.6 % 05/02/2018 CBC 2245819 Lymph Auto 41.7 % 05/02/2018 CBC 2247208 [place] Auto 8.1 % 05/02/2018 CBC 6142326 RDW 13.1 % 05/02/2018 CBC 4926594 Eos Auto 1.1 % 05/02/2018 CBC 0865580 Baso Auto 0.5 % 05/02/2018 CBC 4570923 Neutrophil Abs 3.11 10e9/L 05/02/2018 CBC 2798357 Lymphocyte Abs 2.67 10e9/L 05/02/2018 CBC 0822598 Monocyte Abs 0.52 10e9/L 05/02/2018 CBC 7832783 Eosinophil Abs 0.07 10e9/L 05/02/2018 CBC 4666793 RDW-SD 40.0 fL 05/02/2018 CBC 4595261 Basophil Abs 0.03 10e9/L 05/02/2018 CHEM 14 0996627 AST 17 U/L 05/02/2018 CHEM 14 9042520 ALT 17 U/L 05/02/2018 CHEM 14 1547283 BUN 17 mg/dL 05/02/2018 CHEM 14 0977027 ALBUMIN 4.0 g/dL 05/02/2018 CHEM 14 3065553 CHLORIDE 97 mmol/L 05/02/2018 CHEM 14 0304584 Bili Total 0.9 mg/dL 05/02/2018 CHEM 14 4764088 ALK PHOS 67 U/L 05/02/2018 CHEM 14 3460712 SODIUM 135 mmol/L 05/02/2018 CHEM 14 0158290 CREATININE 1.18 mg/dL 05/02/2018 CHEM 14 4731856 CALCIUM 9.4 mg/dL 05/02/2018 CHEM 14 9651253 POTASSIUM 4.4 mmol/L 05/02/2018 CHEM 14 1469673 TOTAL PROTEIN 6.9 g/dL 05/02/2018 CHEM 14 8229917 GLUCOSE 316 mg/dL 05/02/2018 CHEM 14 4255507 Bicarbonate 29 mmol/L 05/02/2018 CHEM 14 6040425 AGAP 9 mmol/L 05/02/2018 MEAN GLUC 4434742 Calc Mean Gluc 283 mg/dL 05/02/2018 A1C HPLC 9177408 Hgb A1c 25564-4 11.5 % 05/02/2018 GFR CALC 2330015 GFR Non Afr Amr >60 mL/min 05/02/2018 GFR CALC 5106886 GFR Afr Amr >60 mL/min 05/02/2018 JIC Gold 9310981 JIC Gold Complete 02/28/2018 GFR CALC 8198278 GFR Non Afr Amr >60 mL/min 02/28/2018 GFR CALC 6537620 GFR Afr Amr >60 mL/min 02/28/2018 UA W/CII 4299059 UA Urine Appear Normal 02/28/2018 UA W/CII 3072592 UA Protein 1+ 02/28/2018 UA W/CII 8562859 UA Hemoglobin Negative 02/28/2018 UA W/CII 3056413 UA Glucose 4+ 02/28/2018 UA W/CII 6981751 UA Ketones Trace 02/28/2018 UA W/CII 6403041 UA pH 5.5 02/28/2018 UA W/CII 4269807 U Spec [place] 1.015 02/28/2018 UA W/CII 9539355 UA Bilirubin Negative 02/28/2018 UA W/CII 0033833 UA Nitrite NEG 02/28/2018 UA W/CII 9251197 UA Leuk Esteras Negative 02/28/2018 MICR 3770118 UA WBC/hpf 1 02/28/2018 MICR 2637444 UA RBC hpf 2 02/28/2018 MICR 0969288 UA WBC auto 3.8 /uL 02/28/2018 MICR 3944476 UA RBC auto 12.2 /uL 02/28/2018 MICR 1150754 UA SQ EPI auto 2.3 /uL 02/28/2018 MICR 3692461 UA H Cast auto 0.10 /uL 02/28/2018 CBC 7829024 WBC 6.4 10e9/L 02/28/2018 CBC 6667781 RBC 5.51 10e12/L 02/28/2018 CBC 6614317 HEMOGLOBIN 16.7 g/dL 02/28/2018 CBC 3335878 HEMATOCRIT 46.9 % 02/28/2018 CBC 0166213 MCV 85.1 fL 02/28/2018 CBC 2284482 MCH 30.3 pg 02/28/2018 CBC 7648796 MCHC 35.6 g/dL 02/28/2018 CBC 1470804 PLATELET COUNT 173 10e9/L 02/28/2018 CBC 2143997 Mean Plt Volume 11.6 fL 02/28/2018 CBC 4914242 Neut Auto 51.8 % 02/28/2018 CBC 0388480 Lymph Auto 39.9 % 02/28/2018 CBC 8882744 [place] Auto 7.3 % 02/28/2018 CBC 5428007 RDW 13.3 % 02/28/2018 CBC 4365869 Eos Auto 0.8 % 02/28/2018 CBC 4141351 Baso Auto 0.2 % 02/28/2018 CBC 0329954 Neutrophil Abs 3.32 10e9/L 02/28/2018 CBC 9738358 Lymphocyte Abs 2.55 10e9/L 02/28/2018 CBC 2546306 Monocyte Abs 0.47 10e9/L 02/28/2018 CBC 7105234 Eosinophil Abs 0.05 10e9/L 02/28/2018 CBC 4417999 RDW-SD 40.8 fL 02/28/2018 CBC 0013075 Basophil Abs 0.01 10e9/L 02/28/2018 CHEM 14 6423856 AST 17 U/L 02/28/2018 CHEM 14 3721730 ALT 17 U/L 02/28/2018 CHEM 14 6178150 BUN 20 mg/dL 02/28/2018 CHEM 14 2442802 ALBUMIN 4.1 g/dL 02/28/2018 CHEM 14 6548502 CHLORIDE 97 mmol/L 02/28/2018 CHEM 14 4193241 Bili Total 1.3 mg/dL 02/28/2018 CHEM 14 2805669 ALK PHOS 78 U/L 02/28/2018 CHEM 14 5871759 SODIUM 135 mmol/L 02/28/2018 CHEM 14 3983490 CREATININE 1.09 mg/dL 02/28/2018 CHEM 14 1594165 CALCIUM 9.6 mg/dL 02/28/2018 CHEM 14 5974412 POTASSIUM 3.8 mmol/L 02/28/2018 CHEM 14 6484131 TOTAL PROTEIN 7.3 g/dL 02/28/2018 CHEM 14 2026539 GLUCOSE 349 mg/dL 02/28/2018 CHEM 14 6905577 Bicarbonate 29 mmol/L 02/28/2018 CHEM 14 9060706 AGAP 9 mmol/L 02/28/2018 [place] Spotted Fever Igg/Igm 792095 FEI MT SPOTTED FEVER IGM EIA . 09/05/2017 [place] Spotted Fever Igg/Igm 583687 RMSF, IGM 0.17 index 09/05/2017 [place] Spotted Fever Igg/Igm 217196 FEI MT SPOTTED FEVER IGG EIA FLEX . 09/05/2017 [place] Spotted Fever Igg/Igm 957313 RMSF, IGG SCREEN-FLEX Positive 09/05/2017 [place] Spot'D Fev Igg 641836 RMSF, IGG- TITER IFA <1:64 09/05/2017 Ehrlichia Chaffeensis Antibody Igm 784373 EHRLICHIA CHAFFEENSIS IGM < 1:16 09/03/2017 Ehrlichia Chaffeensis Antibody Igg 746020 EHRLICHIA CHAFFEENSIS IGG <1:64 09/03/2017 Lymes Disease Total Antibodies With Western Blot Reflex B. BURGDORFERI, IGG/IGM 0.223 08/30/2017 Lymes Disease Total Antibodies With Western Blot Reflex 08/30/2017 C-Reactive Protein Qnt Crqnt CRP 0.00 mg/dl 08/27/2017 Sed Rate Ord21 ESR 8 mm/hr 08/27/2017 Comp Metabolic Tff135 NA 135 mEq/L 08/16/2017 Comp Metabolic Hvs302 K 4.1 mEq/L 08/16/2017 Comp Metabolic Szt359 CL 98 mEq/L 08/16/2017 Comp Metabolic Mcv633 CO2 28.0 mEq/L 08/16/2017 Comp Metabolic Byb347 ANION GAP 13 08/16/2017 Comp Metabolic Zfu356 GLUCOSE 299 mg/dL 08/16/2017 Comp Metabolic Xai223 Creat 0.9 mg/dL 08/16/2017 Comp Metabolic Yqd671 eGFR 90 ml/min/1.73m2 08/16/2017 Comp Metabolic Hxx965 BUN 20 mg/dL 08/16/2017 Comp Metabolic Lei343 B/C Ratio 21.5 Ratio 08/16/2017 Comp Metabolic Dbg622 CALCIUM 9.2 mg/dL 08/16/2017 Comp Metabolic Dxg650 ALK PHOS 84 U/L 08/16/2017 Comp Metabolic Ipr064 AST(SGOT) 19 U/L 08/16/2017 Comp Metabolic Dwk618 ALT(SGPT) 24 U/L 08/16/2017 Comp Metabolic Htc715 BILI T 1.1 mg/dL 08/16/2017 Comp Metabolic Qpj194 ALBUMIN 4.2 g/dL 08/16/2017 Comp Metabolic Hfm108 TPRO 7.2 g/dL 08/16/2017 Comp Metabolic Smr540 GLOB 3.0 g/dL 08/16/2017 Comp Metabolic Vev309 A/G Ratio 1.4 Ratio 08/16/2017 Comp Metabolic Ciy709 Osmo 284 mOsmo 08/16/2017 %Hba1C Jyg921 % HbA1c 95786- 6 12.5 % 08/16/2017 %Hba1C Mjc362 Gluc Ave 312 mg/dL 08/16/2017 Urine Culture Ucult Preliminary NO Growth Day 1 06/23/2017 Urine Culture Ucult Complete NO Growth Day 2 06/23/2017 C RAP A SC [id number] Strep A Negative 06/08/2017 %Hba1C Rtk221 % HbA1c 48412- 6 9.5 % 05/04/2017 %Hba1C Moj705 Gluc Ave 226 mg/dL 05/04/2017 Tsh Ord6 [...] 31.7 pg 05/04/2017 Cbc With Differential Ord2 [place]% 8.5 % 05/04/2017 Cbc With Differential Ord2 [...] 2.48 K/ul 05/04/2017 Cbc With Differential Ord2 [place] ABS# 0.5 K/ul 05/04/2017 Cbc With Differential Ord2 Eos ABS# 0.1 K/ul 05/04/2017 Cbc With Differential Ord2 Baso ABS# 0.0 K/ul 05/04/2017 Comp Metabolic Xbv019 NA 135 mEq/L 05/04/2017 Comp Metabolic Djb336 K 4.2 mEq/L 05/04/2017 Comp Metabolic Ufg065 CL 99 mEq/L 05/04/2017 Comp Metabolic Ohr492 CO2 26.0 mEq/L 05/04/2017 Comp Metabolic Ped909 ANION GAP 14 05/04/2017 Comp Metabolic Umi823 GLUCOSE 277 mg/dL 05/04/2017 Comp Metabolic Rux776 Creat 0.9 mg/dL 05/04/2017 Comp Metabolic Zgf228 eGFR 96 ml/min/1.73m2 05/04/2017 Comp Metabolic Ony559 BUN 23 mg/dL 05/04/2017 Comp Metabolic Xyl623 B/C Ratio 26.1 Ratio 05/04/2017 Comp Metabolic Qrl363 CALCIUM 8.9 mg/dL 05/04/2017 Comp Metabolic Xub813 ALK PHOS 81 U/L 05/04/2017 Comp Metabolic Mjj079 AST(SGOT) 21 U/L 05/04/2017 Comp Metabolic Wvo628 ALT(SGPT) 27 U/L 05/04/2017 Comp Metabolic Yao714 BILI T 1.2 mg/dL 05/04/2017 Comp Metabolic Luh956 ALBUMIN 4.0 g/dL 05/04/2017 Comp Metabolic Jty647 TPRO 6.7 g/dL 05/04/2017 Comp Metabolic Nfi465 GLOB 2.7 g/dL 05/04/2017 Comp Metabolic Myl432 A/G Ratio 1.5 Ratio 05/04/2017 Comp Metabolic Iem733 Osmo 284 mOsmo 05/04/2017 C A/B FLU 3506111 Influenza A Scr Negative 02/16/2017 C A/B FLU 1089535 Influenza B Scr Positive 02/16/2017 Cbc With [...] 30.3 pg 05/23/2016 Cbc With Differential Ord2 [place]% 8.8 % 05/23/2016 Cbc With Differential Ord2 [...] 2.07 K/ul 05/23/2016 Cbc With Differential Ord2 [place] ABS# 0.5 K/ul 05/23/2016 Cbc With Differential Ord2 Eos ABS# 0.1 K/ul 05/23/2016 Cbc With Differential Ord2 Baso ABS# 0.0 K/ul 05/23/2016 Lipid Ord30 CHOL 397 mg/dL 05/17/2016 Lipid Ord30 HDL 48.0 mg/dl 05/17/2016 Lipid Ord30 TRIG 578 mg/dL 05/17/2016 Lipid Ord30 LDL Unable to calculate Due to elevated triglycerides mg/dL 05/17/2016 Lipid Ord30 C/HDL 8.3 Ratio 05/17/2016 %Hba1C Xvh882 % HbA1c 96209- 6 12.4 % 05/16/2016 %Hba1C Ixw864 Gluc Ave 309 mg/dL 05/16/2016 Cbc With [...] 30.4 pg 05/15/2016 Cbc With Differential Ord2 [place]% 7.8 % 05/15/2016 Cbc With Differential Ord2 [...] 2.04 K/ul 05/15/2016 Cbc With Differential Ord2 [place] ABS# 0.5 K/ul 05/15/2016 Cbc With Differential Ord2 Eos ABS# 0.1 K/ul 05/15/2016 Cbc With Differential Ord2 Baso ABS# 0.0 K/ul 05/15/2016 Tsh Ord6 hTSH II 1.70 uIU/mL 05/15/2016 Comp Metabolic Fka498 NA 135 mEq/L 05/15/2016 Comp Metabolic Ouf676 K 3.9 mEq/L 05/15/2016 Comp Metabolic Ylj075 CL 96 mEq/L 05/15/2016 Comp Metabolic Mts914 CO2 27.0 mEq/L 05/15/2016 Comp Metabolic Wle814 ANION GAP 16 05/15/2016 Comp Metabolic Lek268 GLUCOSE 183 mg/dL 05/15/2016 Comp Metabolic Iqs992 Creat 1.1 mg/dL 05/15/2016 Comp Metabolic Hsu194 eGFR 71 ml/min/1.73m2 05/15/2016 Comp Metabolic Lgs721 BUN 17 mg/dL 05/15/2016 Comp Metabolic Eir847 B/C Ratio 14.9 Ratio 05/15/2016 Comp Metabolic Pwz211 CALCIUM 9.6 mg/dL 05/15/2016 Comp Metabolic Qrl478 ALK PHOS 100 U/L 05/15/2016 Comp Metabolic Aai041 AST(SGOT) 20 U/L 05/15/2016 Comp Metabolic Ztd311 ALT(SGPT) 20 U/L 05/15/2016 Comp Metabolic Oxm831 BILI T 1.3 mg/dL 05/15/2016 Comp Metabolic Ifn059 ALBUMIN 4.6 g/dL 05/15/2016 Comp Metabolic Rmd589 TPRO 8.1 g/dL 05/15/2016 Comp Metabolic Acq601 GLOB 3.5 g/dL 05/15/2016 Comp Metabolic Qea782 A/G Ratio 1.3 Ratio 05/15/2016 Comp Metabolic Eqi652 Osmo 276 mOsmo 05/15/2016 Review of Systems [...] Codes Date URINALYSIS NONAUTO W/O SCOPE CPT-4: 79525 02/17/2019 KETOROLAC TROMETHAMINE INJ CPT-4: J1885 10/21/2018 TRIAMCINOLONE ACET INJ NOS CPT-4: J3301 09/30/2018 THER/PROPH/DIAG INJ SC/IM CPT-4: 76479 09/11/2018 TRIAMCINOLONE ACET INJ NOS CPT-4: J3301 09/11/2018 IMMUNIZATION ADMIN CPT- 4: 45987 07/22/2018 FLU VAC NO PRSV 4 MENA 3 YRS+ CPT-4: 13551 07/22/2018 TRIAMCINOLONE ACET INJ NOS CPT-4: J3301 06/28/2018 KETOROLAC TROMETHAMINE INJ CPT-4: J1885 05/02/2018 FLU VAC NO PRSV 4 MENA 3 YRS+ CPT-4: 14856 08/16/2017 IMMUNIZATION ADMIN CPT- 4: 11612 08/16/2017 URINALYSIS NONAUTO W/O SCOPE CPT-4: 91961 06/21/2017 TRIAMCINOLONE ACET INJ NOS CPT-4: J3301 05/04/2017 THER/PROPH/DIAG INJ SC/IM CPT-4: 81839 05/04/2017 TRIAMCINOLONE ACET INJ NOS CPT-4: J3301 02/16/2017 ROCEPHIN, PER 250 MG CPT- 4: J0696 02/16/2017 ROCEPHIN, PER 250 MG CPT- 4: J0696 10/06/2016 URINALYSIS NONAUTO W/O SCOPE CPT-4: 50034 07/18/2016 TRIAMCINOLONE ACET INJ NOS CPT-4: J3301 01/20/2016 Vital Signs Date Vital 03/07/2019 Blood Pressure 1: 110/70 Code: 8480-6 BMI: 33.0 Code: 88429-7 Heart Rate 1: 112 bpm Height: 6'2" SpO2: 95% Weight: 257 lbs 02/27/2019 Blood Pressure 1: 110/80 Code: 8480-6 BMI: 33.0 Code: 50589-9 Heart Rate 1: 89 bpm Height: 6'2" SpO2: 95% Weight: 257 lbs 02/17/2019 Blood Pressure 1: 120/80 Code: 8480-6 Blood Pressure 2: 102/80 Code: 8480-6 Heart Rate 1: 89 bpm SpO2: 96% 01/13/2019 Blood Pressure 1: 120/70 Code: 8480-6 BMI: 34.2 Code: 29833-8 Heart Rate 1: 74 bpm Height: 6'2" SpO2: 96% Weight: 266 lbs 12/31/2018 Blood Pressure 1: 122/70 Code: 8480-6 BMI: 34.4 Code: 32708-1 Heart Rate 1: 90 bpm Height: 6'2" SpO2: 97% Temperature: 36.6 (C) / 97.8 (F) Weight: 268 lbs 12/26/2018 Blood Pressure 1: 118/72 Code: 8480-6 BMI: 34.4 Code: 52169-9 Heart Rate 1: 82 bpm Height: 6'2" SpO2: 98% Temperature: 36.6 (C) / 97.9 (F) Weight: 268 lbs 11/18/2018 Blood Pressure 1: 120/84 Code: 8480-6 BMI: 33.9 Code: 89966-5 Heart Rate 1: 77 bpm Height: 6'2" SpO2: 99% Temperature: 36.7 (C) / 98.1 (F) Weight: 264 lbs 11/12/2018 Blood Pressure 1: 138/76 Code: 8480-6 BMI: 33.9 Code: 44961-8 Heart Rate 1: 91 bpm Height: 6'2" SpO2: 99% Weight: 264 lbs 10/30/2018 Blood Pressure 1: 130/72 Code: 8480-6 BMI: 33.3 Code: 37310-7 Heart Rate 1: 83 bpm Height: 6'2" SpO2: 95% Temperature: 36.5 (C) / 97.7 (F) Weight: 259 lbs 10/24/2018 Blood Pressure 1: 130/70 Code: 8480-6 Heart Rate 1: 95 bpm Height: 6'2" SpO2: 96% 10/23/2018 Blood Pressure 1: 100/70 Code: 8480-6 Blood Pressure 2: 102/70 Code: 8480-6 BMI: 33.3 Code: 75183-0 Heart Rate 1: 106 bpm Height: 6'2" SpO2: 98% Weight: 259 lbs 10/21/2018 Blood Pressure 1: 140/90 Code: 8480-6 BMI: 32.9 Code: 73426-7 Heart Rate 1: 96 bpm Height: 6'2" SpO2: 92% Weight: 256 lbs 10/17/2018 Blood Pressure 1: 110/68 Code: 8480-6 BMI: 32.9 Code: 56480-9 Heart Rate 1: 82 bpm Height: 6'2" SpO2: 97% Weight: 256 lbs 10/14/2018 Blood Pressure 1: 124/70 Code: 8480-6 BMI: 33.6 Code: 32271-0 Heart Rate 1: 76 bpm Height: 6'2" SpO2: 99% Temperature: 36.3 (C) / 97.3 (F) Weight: 262 lbs 09/30/2018 Blood Pressure 1: 138/82 Code: 8480-6 BMI: 33.6 Code: 81184-7 Heart Rate 1: 82 bpm Height: 6'2" SpO2: 98% Temperature: 36.3 (C) / 97.3 (F) Weight: 262 lbs 09/09/2018 Blood Pressure 1: 140/80 Code: 8480-6 BMI: 33.0 Code: 75133-6 Heart Rate 1: 97 bpm Height: 6'2" SpO2: 93% Temperature: 36.8 (C) / 98.2 (F) Weight: 257 lbs 07/22/2018 Blood Pressure 1: 120/78 Code: 8480-6 BMI: 31.6 Code: 16358-5 Heart Rate 1: 87 bpm Height: 6'2" SpO2: 98% Weight: 246 lbs 07/16/2018 Blood Pressure 1: 132/74 Code: 8480-6 BMI: 31.2 Code: 09661-1 Heart Rate 1: 90 bpm Height: 6'2" SpO2: 96% Weight: 243 lbs 07/01/2018 Blood Pressure 1: 142/82 Code: 8480-6 BMI: 31.8 Code: 94281-6 Heart Rate 1: 88 bpm Height: 6'2" SpO2: 98% Weight: 248 lbs 06/28/2018 Blood Pressure 1: 132/76 Code: 8480-6 BMI: 31.8 Code: 62138-6 Heart Rate 1: 107 bpm Height: 6'2" SpO2: 98% Temperature: 37.9 (C) / 100.3 (F) Weight: 248 lbs 06/18/2018 Blood Pressure 1: 138/82 Code: 8480-6 BMI: 31.8 Code: 06143-9 Heart Rate 1: 82 bpm Height: 6'2" SpO2: 97% Weight: 248 lbs 06/04/2018 Blood Pressure 1: 128/84 Code: 8480-6 BMI: 33.9 Code: 00691-9 Heart Rate 1: 86 bpm Height: 6'2" SpO2: 95% Weight: 264 lbs 05/13/2018 Blood Pressure 1: 130/80 Code: 8480-6 BMI: 31.1 Code: 10653-9 Heart Rate 1: 100 bpm Height: 6'2" SpO2: 94% Weight: 242 lbs 05/02/2018 Blood Pressure 1: 134/84 Code: 8480-6 BMI: 31.2 Code: 97018-7 Heart Rate 1: 93 bpm Height: 6'2" SpO2: 98% Weight: 243 lbs 04/29/2018 Blood Pressure 1: 142/88 Code: 8480-6 BMI: 31.6 Code: 22937-0 Heart Rate 1: 96 bpm Height: 6'2" SpO2: 96% Temperature: 36.7 (C) / 98.1 (F) Weight: 246 lbs 03/13/2018 Blood Pressure 1: 120/76 Code: 8480-6 BMI: 30.9 Code: 13141-9 Heart Rate 1: 112 bpm Height: 6'2" SpO2: 97% Weight: 241 lbs 03/07/2018 Blood Pressure 1: 108/78 Code: 8480-6 BMI: 30.0 Code: 02968-9 Heart Rate 1: 87 bpm Height: 6'2" SpO2: 98% Weight: 234 lbs 02/28/2018 Blood Pressure 1: 106/74 Code: 8480-6 BMI: 30.0 Code: 36373-8 Heart Rate 1: 101 bpm Height: 6'2" SpO2: 98% Temperature: 36.4 (C) / 97.5 (F) Weight: 234 lbs 02/13/2018 Blood Pressure 1: 110/78 Code: 8480-6 BMI: 30.0 Code: 64462-0 Heart Rate 1: 106 bpm Height: 6'2" SpO2: 98% Weight: 234 lbs 01/29/2018 Blood Pressure 1: 106/68 Code: 8480-6 BMI: 30.0 Code: 43188-9 Heart Rate 1: 108 bpm Height: 6'2" SpO2: 98% Weight: 234 lbs 08/27/2017 Blood Pressure 1: 134/76 Code: 8480-6 Heart Rate 1: 98 bpm Height: SpO2: 97% Weight: 08/16/2017 Blood Pressure 1: 128/80 Code: 8480-6 BMI: 32.0 Code: 47152-4 Heart Rate 1: 94 bpm Height: 6'2" [...] 1: 142/92 Code: 8480-6 BMI: 31.8 Code: 20828-8 Heart Rate 1: 102 bpm Height: 6'2" [...] 1: 122/72 Code: 8480-6 BMI: 31.8 Code: 69621-6 Heart Rate 1: 85 bpm Height: 6'2" SpO2: 96% Temperature: 36.6 (C) / 97.9 (F) Weight: 248 lbs 02/12/2017 Blood Pressure 1: 126/76 Code: 8480-6 BMI: 31.8 Code: 95592-8 Heart Rate 1: 106 bpm Height: 6'2" SpO2: 91% Weight: 248 lbs 02/05/2017 Blood Pressure 1: 146/86 Code: 8480-6 BMI: 31.9 Code: 87258-9 Heart Rate 1: 98 bpm Height: 6'2" SpO2: 87% Temperature: 36.7 (C) / 98.0 (F) Weight: 248 lbs 8 oz 01/29/2017 Blood Pressure 1: 132/84 Code: 8480-6 BMI: 31.8 Code: 22343-6 Heart Rate 1: 83 bpm Height: 6'2" SpO2: 97% Weight: 248 lbs 10/13/2016 Blood Pressure 1: 128/72 Code: 8480-6 Heart Rate 1: 86 bpm SpO2: 94% 10/09/2016 Blood Pressure 1: 128/68 Code: 8480-6 Heart Rate 1: 136 bpm SpO2: 94% Temperature: 36.8 (C) / 98.2 (F) 10/06/2016 Blood Pressure 1: 140/80 Code: 8480-6 BMI: 32.1 Code: 75473-1 Heart Rate 1: 94 bpm Height: 6'2" SpO2: 95% Weight: 250 lbs 07/18/2016 Blood Pressure 1: 128/86 Code: 8480-6 BMI: 32.1 Code: 58376-6 Heart Rate 1: 89 bpm Height: 6'2" SpO2: 96% Weight: 250 lbs 06/22/2016 Blood Pressure 1: 118/70 Code: 8480-6 BMI: 32.1 Code: 37944-3 Heart Rate 1: 70 bpm Height: 6'2" SpO2: 97% Weight: 250 lbs 05/23/2016 Blood Pressure 1: 128/80 Code: 8480-6 BMI: 32.1 Code: 71887-3 Heart Rate 1: 76 bpm Height: 6'2" SpO2: 98% Weight: 250 lbs 05/15/2016 Blood Pressure 1: 110/90 Code: 8480-6 BMI: 31.3 Code: 48317-5 Heart Rate 1: 111 bpm Height: 6'2" SpO2: 97% Temperature: 36.6 (C) / 97.8 (F) Weight: 244 lbs 01/20/2016 Blood Pressure 1: 128/76 Code: 8480-6 BMI: 33.0 Code: 06831-6 Heart Rate 1: 103 bpm Height: 6'2" [...] data Encounters Encounter Performer Location Codes Date ([id number]) 90860 EST. PATIENT, LEVEL III Diagnosis: Essential (primary) hypertension[ICD10: I10] Marcela Ha MD, [facility] CPT-4: 00248 03/07/2019 ([id number]) 35418 EST. PATIENT, LEVEL III Diagnosis: Hypotension due to drugs[ICD10: I95.2] Marcela Ha MD, [facility] CPT-4: 94178 02/27/2019 ([id number]) 81007 EST. PATIENT, LEVEL III Diagnosis: Hypotension due to drugs[ICD10: I95.2] Diagnosis: Other fatigue[ICD10: R53.83] Marcela Ha MD, [facility] CPT-4: 84489 02/17/2019 ([id number]) 97721 EST. 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 PATIENT, LEVEL IV Diagnosis: Type 2 diabetes mellitus with hyperglycemia[ICD10: E11.65] Diagnosis: Epigastric pain[ICD10: R10.13] Diagnosis: Pain in joints of right hand[ICD10: M25.541] Diagnosis: Shortness of breath[ICD10: R06.02] Marcela Ha MD, [facility] CPT- 4: 18137 12/31/2018 18709 EST. PATIENT, LEVEL III Diagnosis: Other chest pain[ICD10: R07.89] Diagnosis: Cough[ICD10: R05] Madeline Ha MD, [facility] CPT-4: 34286 12/26/2018 ([id number]) 12822 EST. PATIENT, LEVEL III Diagnosis: Cough[ICD10: R05] Melida Ha MD, [facility] CPT-4: 50359 11/18/2018 ([id number]) 41134 EST. PATIENT, LEVEL III Diagnosis: Cough[ICD10: R05] Diagnosis: Pneumonia due to other Gram-negative bacteria[ICD10: J15.6] Marcela Ha MD, [facility] CPT-4: 57960 11/12/2018 ([id number]) 94889 EST. PATIENT, LEVEL III Diagnosis: Pneumonia due to other Gram-negative bacteria[ICD10: J15.6] Diagnosis: Cough[ICD10: R05] Melida Ha MD, [facility] CPT-4: 57863 10/30/2018 ([id number]) 45963 EST. PATIENT, LEVEL II Diagnosis: Pain in joints of right hand[ICD10: M25.541] Diagnosis: Trigger finger, right middle finger[ICD10: M65.331] Marcela Ha MD, [facility] CPT-4: 25765 10/24/2018 ([id number]) 00100 EST. PATIENT, LEVEL IV Diagnosis: Essential (primary) hypertension[ICD10: I10] Diagnosis: Type 2 diabetes mellitus with foot ulcer[ICD10: E11.621] Melida Ha MD, [facility] CPT-4: 48768 10/23/2018 ([id number]) 92108 EST. PATIENT, LEVEL III Diagnosis: Cellulitis of right finger[ICD10: L03.011] Diagnosis: Type 2 diabetes mellitus with foot ulcer[ICD10: E11.621] Diagnosis: Pain in right hand[ICD10: M79.641] Melida Ha MD, [facility] CPT- 4: 17976 10/21/2018 44862 EST. PATIENT, LEVEL III Diagnosis: Spontaneous ecchymoses[ICD10: R23.3] Diagnosis: Cellulitis of right lower limb[ICD10: L03.115] Diagnosis: Cellulitis of left lower limb[ICD10: L03.116] Madeline Ha MD, [facility] CPT-4: 87454 10/17/2018 ([id number]) 29941 EST. PATIENT, LEVEL III Diagnosis: Cough[ICD10: R05] Diagnosis: Acute bronchitis, unspecified[ICD10: J20.9] Melida Ha MD, [facility] CPT-4: 18534 10/14/2018 43516 EST. PATIENT, LEVEL III Diagnosis: Acute laryngopharyngitis[ICD10: J06.0] Diagnosis: Cough[ICD10: R05] Madeline Ha MD, [facility] CPT-4: 62808 09/30/2018 ([id number]) 03947 EST. PATIENT, LEVEL III Diagnosis: Acute recurrent maxillary sinusitis[ICD10: J01.01] Diagnosis: Cough[ICD10: R05] Diagnosis: Type 2 diabetes mellitus with hyperglycemia[ICD10: E11.65] Marcela Ha MD, [facility] CPT-4: 33954 09/09/2018 ([id number]) 65733 EST. PATIENT, LEVEL IV Diagnosis: Essential (primary) hypertension[ICD10: I10] Diagnosis: Mixed hyperlipidemia[ICD10: E78.2] Diagnosis: Bipolar disorder, current episode depressed, moderate[ICD10: F31.32] Diagnosis: Type 2 diabetes mellitus with other specified complication[ICD10: E11.69] Melida Ha MD, [facility] CPT-4: 30720 07/22/2018 ([id number]) 42329 EST. PATIENT, LEVEL III Diagnosis: Insomnia due to medical condition[ICD10: G47.01] Marcela Ha MD, [facility] CPT-4: 38559 07/16/2018 ([id number]) Miscellaneous no charge Diagnosis: Cough[ICD10: R05] Madeline Ha MD, [facility] CPT-4: 29504 07/01/2018 40682 EST. PATIENT, LEVEL III Diagnosis: Cough[ICD10: R05] Diagnosis: Acute laryngopharyngitis[ICD10: J06.0] Diagnosis: Other allergic rhinitis[ICD10: J30.89] Madeline Ha MD, [facility] CPT- 4: 64071 06/28/2018 ([id number]) 99031 EST. PATIENT, LEVEL IV Diagnosis: Type 2 diabetes mellitus with hyperglycemia[ICD10: E11.65] Diagnosis: Essential (primary) hypertension[ICD10: I10] Melida Ha MD, [facility] CPT-4: 36830 06/18/2018 ([id number]) 06408 EST. PATIENT, LEVEL IV Diagnosis: Type 2 diabetes mellitus with hyperglycemia[ICD10: E11.65] Diagnosis: Essential (primary) hypertension[ICD10: I10] Diagnosis: Localized edema[ICD10: R60.0] Melida Ha MD, [facility] CPT-4: 37821 06/04/2018 ([id number]) 20797 EST. PATIENT, LEVEL III Diagnosis: Type 2 diabetes mellitus with hyperglycemia[ICD10: E11.65] Diagnosis: Myalgia[ICD10: M79.1] Diagnosis: Pain in right hip[ICD10: M25.551] Diagnosis: Pain in left hip[ICD10: M25.552] Marcela Ha MD, [facility] CPT- 4: 28230 05/13/2018 ([id number]) 61312 EST. PATIENT, LEVEL III Diagnosis: Myalgia[ICD10: M79.1] Diagnosis: Pain in right hip[ICD10: M25.551] Diagnosis: Pain in left hip[ICD10: M25.552] Marcela Ha MD, [facility] CPT- 4: 66845 05/02/2018 ([id number]) 55996 EST. PATIENT, LEVEL IV Diagnosis: Essential (primary) hypertension[ICD10: I10] Diagnosis: Type 2 diabetes mellitus with hyperglycemia[ICD10: E11.65] Diagnosis: Major depressive disorder, single episode, moderate[ICD10: F32.1] Diagnosis: Myalgia[ICD10: M79.1] Marcela Ha MD, [facility] CPT-4: 28661 04/29/2018 ([id number]) 91352 EST. PATIENT, LEVEL IV Diagnosis: Type 2 diabetes mellitus with hyperglycemia[ICD10: E11.65] Diagnosis: Essential (primary) hypertension[ICD10: I10] Diagnosis: Major depressive disorder, single episode, moderate[ICD10: F32.1] Melida Ha MD, [facility] CPT-4: 43004 03/13/2018 ([id number]) 05367 EST. PATIENT, LEVEL III Diagnosis: Type 2 diabetes mellitus with hyperglycemia[ICD10: E11.65] Diagnosis: Bipolar disorder, current episode depressed, moderate[ICD10: F31.32] Diagnosis: Orthostatic hypotension[ICD10: I95.1] Marcela Ha MD, [facility] CPT-4: 09992 03/07/2018 ([id number]) 87421 EST. PATIENT, LEVEL IV Diagnosis: Type 2 diabetes mellitus with hyperglycemia[ICD10: E11.65] Diagnosis: Major depressive disorder, single episode, moderate[ICD10: F32.1] Diagnosis: Orthostatic hypotension[ICD10: I95.1] Diagnosis: Other fatigue[ICD10: R53.83] Marcela Ha MD, [facility] CPT-4: 87054 02/28/2018 64589 EST. PATIENT, LEVEL IV Diagnosis: Other fatigue[ICD10: R53.83] Diagnosis: Other malaise[ICD10: R53.81] Diagnosis: Gastro-esophageal reflux disease without esophagitis[ICD10: K21.9] Madeline Ha MD, [facility] CPT-4: 05640 02/13/2018 ([id number]) 54989 EST. PATIENT, LEVEL IV Diagnosis: Type 2 diabetes mellitus with foot ulcer[ICD10: E11.621] Diagnosis: Essential (primary) hypertension[ICD10: I10] Diagnosis: Gastro-esophageal reflux disease without esophagitis[ICD10: K21.9] Marcela Ha MD, [facility] CPT-4: 25017 01/29/2018 87920 EST. PATIENT, LEVEL III Diagnosis: Other malaise[ICD10: R53.81] Diagnosis: Other fatigue[ICD10: R53.83] Diagnosis: Pain in right shoulder[ICD10: M25.511] Diagnosis: Pain in left shoulder[ICD10: M25.512] Madeline Ha MD, [facility] CPT- 4: 23543 08/27/2017 ([id number]) 02362 EST. PATIENT, LEVEL IV Diagnosis: Essential (primary) hypertension[ICD10: I10] Diagnosis: Type 2 diabetes mellitus with hyperglycemia[ICD10: E11.65] Diagnosis: VACCIN FOR INFLUENZA[ICD10: Z23] Melida Ha MD, [facility] CPT-4: 95083 08/16/2017 29152 EST. PATIENT, LEVEL III Diagnosis: Zoster without complications[ICD10: B02.9] Madeline Ha MD, [facility] CPT-4: 46773 07/26/2017 ([id number]) 57570 EST. PATIENT, LEVEL III Diagnosis: Cellulitis of right lower limb[ICD10: L03.115] Marcela Ha MD, [facility] CPT-4: 43707 07/03/2017 29298 EST. PATIENT, LEVEL II Diagnosis: Laceration without foreign body of left forearm, initial encounter[ICD10: S51.812A] Marcela Ha MD, [facility] CPT-4: 31818 06/29/2017 ([id number]) 25857 EST. PATIENT, LEVEL III Diagnosis: Cellulitis of right lower limb[ICD10: L03.115] Diagnosis: Type 2 diabetes mellitus with foot ulcer[ICD10: E11.621] Marcela Ha MD [facility] CPT-4: 91633 06/18/2017 ([id number]) 69161 EST. PATIENT, LEVEL IV Diagnosis: Cellulitis of right lower limb[ICD10: L03.115] Diagnosis: Acute laryngopharyngitis[ICD10: J06.0] Diagnosis: Gastro-esophageal reflux disease without esophagitis[ICD10: K21.9] Marcela Ha MD [facility] CPT-4: 03260 06/07/2017 ([id number]) 05938 EST. PATIENT, LEVEL III Diagnosis: Type 2 diabetes mellitus with hyperglycemia[ICD10: E11.65] Diagnosis: Insect bite (nonvenomous) of abdominal wall, initial encounter[ICD10: S30.861A] Marcela Ha MD [facility] CPT-4: 22371 05/17/2017 ([id number]) 78339 EST. PATIENT, LEVEL III Diagnosis: Allergic contact dermatitis due to plants, except food[ICD10: L23.7] Melida Ha MD [facility] CPT-4: 69661 05/04/2017 ([id number]) 21735 EST. PATIENT, LEVEL III Diagnosis: Essential (primary) hypertension[ICD10: I10] Marcela Ha MD [facility] CPT-4: 21618 03/15/2017 ([id number]) 94978 EST. PATIENT, LEVEL III Diagnosis: Cough[ICD10: R05] Diagnosis: Essential (primary) hypertension[ICD10: I10] Marcela Ha MD [facility] CPT-4: 56036 03/01/2017 ([id number]) 94183 EST. PATIENT, LEVEL III Diagnosis: Cough[ICD10: R05] Diagnosis: Nasal congestion[ICD10: R09.81] Diagnosis: Acute recurrent maxillary sinusitis[ICD10: J01.01] Marcela Ha MD [facility] CPT-4: 69879 02/16/2017 ([id number]) 67296 EST. PATIENT, LEVEL III Diagnosis: Type 2 diabetes mellitus with hyperglycemia[ICD10: E11.65] Marcela aH MD [facility] CPT-4: 45520 02/12/2017 ([id number]) 74755 EST. PATIENT, LEVEL IV Diagnosis: Type 2 diabetes mellitus with hyperglycemia[ICD10: E11.65] Diagnosis: Muscle weakness (generalized)[ICD10: M62.81] Diagnosis: Disorientation, unspecified[ICD10: R41.0] Marcela Ha MD, [facility] CPT-4: 56244 02/05/2017 ([id number]) Patient admitted to the hospital from clinic (NO CHARGE) Diagnosis: Type 2 diabetes mellitus with hyperglycemia[ICD10: E11.65] Diagnosis: Disorientation, unspecified[ICD10: R41.0] Diagnosis: Muscle weakness (generalized)[ICD10: M62.81] Marcela Ha MD [facility] CPT-4: 55923P 01/29/2017 ([id number]) Miscellaneous no charge Diagnosis: Cellulitis of right lower limb[ICD10: L03.115] Marcela Ha MD, [facility] CPT-4: 72099 10/13/2016 ([id number]) Miscellaneous no charge Diagnosis: Type 2 diabetes mellitus with foot ulcer[ICD10: E11.621] Diagnosis: Pain in right foot[ICD10: M79.671] Marcela Ha MD [facility] CPT- 4: 65761 10/09/2016 26220 EST. PATIENT, LEVEL II Diagnosis: Cellulitis of right lower limb[ICD10: L03.115] Marcela Ha MD, [facility] CPT-4: 91829 10/06/2016 ([id number]) 55287 EST. PATIENT, LEVEL IV Diagnosis: Low back pain[ICD10: M54.5] Diagnosis: Other deformities of toe(s) (acquired), left foot[ICD10: M20.5X2] Diagnosis: Type 2 diabetes mellitus with foot ulcer[ICD10: E11.621] Marcela Ha MD, [facility] CPT-4: 31420 07/18/2016 ([id number]) 20079 EST. PATIENT, LEVEL III Diagnosis: Type 2 diabetes mellitus with hyperglycemia[ICD10: E11.65] Marcela Ha MD, [facility] CPT-4: 38591 06/22/2016 ([id number]) [id number] EST. PATIENT, LEVEL IV Diagnosis: Type 2 diabetes mellitus with hyperglycemia[ICD10: E11.65] Diagnosis: Mixed hyperlipidemia[ICD10: E78.2] Diagnosis: Other hemoglobinopathies[ICD10: D58.2] Marcela Ha MD, [facility] CPT-4: 98782 05/23/2016 ([id number]) [id number] EST. PATIENT, LEVEL IV Diagnosis: Type 2 diabetes mellitus with other specified complication[ICD10: E11.69] Diagnosis: Dehydration[ICD10: E86.0] Marcela Ha MD, [facility] CPT-4: 74121 05/15/2016 ([id number]) OFFICE VISIT, NEW - LEVEL 3 Diagnosis: Allergic contact dermatitis due to plants, except food[ICD10: L23.7] Madeline Ha MD, [facility] CPT-4: 86704 01/20/2016 Plan of Care Planned Activity Notes Codes Status Date Visit Plan: HTN -heart rate not well controlled -decrease valsartan -start metoprolol 25mg daily -return next week for blood pressure check -10 days for appt -discussed scheduling f/u appt with Dr Brennan as well -patient verbalized understanding of plan. 03/07/2019 Appointment: Marcela Oshea WPtel: [address] [place], [place] [phone] (30 min) Complex 03/07/2019 Patient Education: Patient [...] any concerns 02/27/2019 Appointment: Marcela Oshea WPtel: [address] [place], [place] [phone] (30 min) Complex 02/27/2019 Patient Education: Patient Medication Summary Completed 02/27/2019 Visit Plan: Orthostasis -decrease coreg -monitor symptoms and follow up in 10 days- sooner if needed Fatigue-check labs 02/17/2019 Appointment: Marcela Oshea WPtel: [phone] (30 min) Complex 02/17/2019 Patient Education: Patient Medication Summary Completed 02/17/2019 Appointment: Marcela Oshea WPtel: [address] [place], [place] [phone] (30 min) Complex 01/14/2019 Visit Plan: Hypertension [...] Summary Completed 01/13/2019 Appointment: Marcela Oshea WPtel: [phone] [place] (30 min) Complex 01/10/2019 Visit Plan: Epigastric pain -start protonix daily- monitor symptoms Chest pain -work up negative done last week with Madeline-recommend appt with Dr Brennan Joint pain-check inflammation makers DM-check Hgb a1c 12/31/2018 Appointment: Marcela Oshea WPtel: [address] [place], [place] [phone] [place] (15 min) Moderate 12/31/2018 Patient Education: Patient Medication Summary Completed 12/31/2018 Visit Plan: chest pain - EKG and cardiac enzymes OK - discussed with Dr. Ha - will treat for pneumonia - pt is to notify clinic if symptoms do not improve, if they worsen, or with any changes questions, or concerns. 12/26/2018 Appointment: Madeline Kennedy [facility]el[facility] (30 min) Complex 12/26/2018 Patient Education: Patient Medication Summary Completed 12/26/2018 Referral: Andrew Cross Patient informed. Referral info faxed. Completed 11/26/2018 Visit Plan: cough - improved - continue with inhalers - continue with symbicort - rx for proair for PRN use when pt is feelign short of breath with activity. 11/18/2018 Appointment: Melida Ha WPtel: [phone] [facility] (15 min) Moderate 11/18/2018 Patient Education: [...] plan. 11/12/2018 Appointment: Marcela Oshea WPtel: [phone] [place] (30 min) Complex 11/12/2018 Patient Education: Patient Medication Summary Completed 11/12/2018 Patient Education: Symbicort - 18-64 - eCopay Completed 11/12/2018 Care Plan: Referral Order SNOMED-CT : [id number] Pending 11/12/2018 Referral: Niko Mantilla Referral Completed 11/04/2018 Visit Plan: Pneumonia, cough - recent diagnosis of Moraxella Cattharalis - with sensitivity to levaquin - will give 2 wks of levaquin since he had improvement but no full resolution of symptoms. 10/30/2018 Appointment: Melida Ha WPtel: [phone] [facility] [place] 30 min appointments only in this [...] for evaluation 10/24/2018 Appointment: Marcela Oshea WPtel: [phone] [phone] (30 min) Complex 10/24/2018 Patient Education: Patient Medication Summary Completed 10/24/2018 Care Plan: Referral Order SNOMED-CT : [id number] Pending 10/24/2018 Visit Plan: Hypotension - discussed [...] controlled. 10/23/2018 Appointment: [phone] (15 min) Moderate 10/23/2018 Patient Education: Patient [...] plan. 10/21/2018 Appointment: [phone] (30 min) Complex 10/21/2018 Patient Education: Patient [...] warmth, discharge. 10/17/2018 Appointment: Mad[facility] Kennedy [phone] (15 min) Moderate 10/17/2018 Patient Education: Patient [...] worsen. 10/14/2018 Appointment: Marcela Oshea WPtel: [phone] (15 min) Moderate 10/14/2018 Patient Education: Patient Medication Summary Completed 10/14/2018 Care Plan: CHEST X-RAY 2VW FRONTAL&LATL LOINC : 24682-3 Pending 10/14/2018 Visit Plan: URI - Pt [...] spray. 09/30/2018 Appointment: Madeline Kennedy WPtel: [facility] (15 min) Moderate 09/30/2018 Patient Education: Patient [...] Hgb A1C 09/09/2018 Appointment: Marcela Oshea WPtel: [phone] [phone] (15 min) Moderate 09/09/2018 Patient Education: Patient Medication Summary Completed 09/09/2018 Patient Education: Patient Medication Summary Completed 09/06/2018 Patient Education: Cholesterol Management Completed 09/06/2018 Care Plan: Comp Metabolic Pending 09/06/2018 Care Plan: Cbc With Differential Pending 09/06/2018 Care Plan: %Hba1C [facility] : 24906-2 Pending 09/06/2018 Care Plan: Tsh Pending 09/06/2018 Care Plan: Lipid Pending 09/06/2018 Appointment: Marcela Oshea WPtel: [phone] [place] (15 min) Moderate 08/26/2018 Appointment: Marcela Oshea WPtel: [phone] [place] (15 min) Moderate 08/23/2018 Visit [...] in clinic. 07/22/2018 Appointment: Melida Ha WPtel: [facility] (15 min) Moderate 07/22/2018 Patient Education: [...] insomnia. 07/16/2018 Appointment: Marcela Oshea WPtel: [phone] [phone] [place] (30 min) Complex 07/16/2018 Patient Education: Patient Medication Summary Completed 07/16/2018 Visit Plan: cough - improved - notify clinic if symptoms do not completely resolve, or with any questions or concerns. 07/01/2018 Appointment: Madeline Kennedy WPtel: [phone] [facility] (15 min) Moderate 07/01/2018 Patient [...] allergy spray. 06/28/2018 Appointment: Madeline Kennedy WPtel: [phone] [facility] [place] (15 min) Moderate 06/28/2018 Patient Education: Patient Medication Summary Completed 06/28/2018 Patient Education: Patient Medication Summary Completed 06/21/2018 Care Plan: Annabel RICKS [place] Pending 06/21/2018 Visit Plan: Diabetes Mellitus - [...] [phone] (15 min) Moderate 06/18/2018 Patient Education: Patient [...] swelling improves. 06/04/2018 Appointment: Melida Ha [facility]Ptel: [phone] (15 min) Moderate 06/04/2018 Patient Education: Patient [...] allow for greater blood glucose control. Joint mtfq-gfqtjqya-lsbbqgi-symptoms have improved -stop meloxicam due to upset stomach-call if symptoms return 05/13/2018 Appointment: Marcela Oshea WPtel: [phone] [phone] (30 min) Complex 05/13/2018 Patient Education: Patient Medication Summary Completed 05/13/2018 Visit Plan: Bilateral hip sbkh-cmukwibw-eyaxcld IM injection administered today for c/o continued myalgia/arthralgia. Patient to start taking Meloxicam 15mg PO daily. Advised to return to clinic if symptoms do not improve. 05/02/2018 Appointment: Marcela Oshea WPtel: [phone] (30 min) Complex 05/02/2018 Patient Education: [...] readings at home. Diabetes Mellitus -check labs Eaqusmax-lflirzc-oayy bite-rx for doxycycline-follow up in 2 weeks 04/29/2018 Appointment: Marcela Oshea WPtel: [phone] [place] (15 min) Moderate 04/29/2018 Patient Education: Patient Medication Summary Completed 04/29/2018 Appointment: Melida Ha WPtel: [phone] [facility] [place] (15 min) Moderate 04/15/2018 Appointment: Marcela Oshea WPtel: [phone] (30 min) Complex 03/21/2018 Visit Plan: Hypertension [...] on cymbalta 03/13/2018 Appointment: Melida Ha WPtel: [facility] (30 min) Complex 03/13/2018 Patient Education: Patient Medication Summary Completed 03/13/2018 Visit Plan: DM-continue same medications-monitor blood sugars routinely as directed -rx for new glucometer and test strips provided Bipolar- currently depressed-patient start on vraylar-follow up in 2 weeks, sooner if needed. Patient and verbalied understanding of plan. Hypotension-stay off losartan 03/07/2018 Appointment: Marcela Oshea WPtel: [phone] (30 min) Complex 03/07/2018 Patient Education: Patient Medication Summary Completed 03/07/2018 Appointment: Melida Ha WPtel: [facility] (15 min) Moderate 03/04/2018 Visit Plan: Hypotension-continue [...] patient. 02/28/2018 Appointment: Marcel[facility] Oshea [facility]Ptel[phone] [phone] (30 min) Complex 02/28/2018 Patient Education: Patient [...] improving. 02/13/2018 Appointment: Madeline Kennedy [facility]Ptel: [phone] (15 min) Moderate 02/13/2018 Patient Education: Patient Medication Summary Completed 02/13/2018 Referral: Sun Glynn Patient informed. Referral info faxed. Completed 02/01/2018 Visit Plan: DM-weight loss-not checking blood sugars-patient sent for labs today HTN-low jgyst-qkpebjn-uzdjl labs Callus of foot and fissue of heel-refer to Dr Glynn for evaluation Esophageal Reflux - the patient has been counseled against excessive intake of caffeine, spicy foods, peppermint, and cinnamon - all of which can exacerbate esophageal reflux. The patient is to take medications as prescribed and call the office if the symptoms are not improving. 01/29/2018 Appointment: Marcela Oshea WPtel: [phone] [phone] (30 min) Complex 01/29/2018 Patient Education: Patient Medication Summary Completed 01/29/2018 Care Plan: Comp Metabolic Cancelled 01/29/2018 Care Plan: Cbc With Differential Cancelled 01/29/2018 Care Plan: %Hba1C LOINC : 69531-3 Cancelled 01/29/2018 Care Plan: Referral Order SNOMED-CT : [id number] Cancelled 01/29/2018 Visit Plan: Fatigue, malaise, joint [...] concerns. 08/27/2017 Appointment: Madeline Kennedy WPtel: [facility] (15 min) Moderate 08/27/2017 Patient Education: [...] - 08/16/2017 Appointment: Melida Ha WPtel: [phone] [facility] (30 min) Complex 08/16/2017 Patient Education: Patient Medication Summary Completed 08/16/2017 Patient Education: Obesity Completed 08/16/2017 Appointment: Mad[facility] Kennedy [facility]el[phone] (30 min) Complex 08/07/2017 Visit Plan: Shingles [...] contagious. 07/26/2017 Appointment: Madeline Kennedy WPtel: [facility] (15 min) Moderate 07/26/2017 Patient Education: Patient Medication Summary Completed 07/26/2017 Visit Plan: Cellulitis right foot-cultured today in the office- home health to reapply wound vac--appt with wound care on to evaluate for debridement- 07/03/2017 Appointment: Marcela Oshea WPtel: [phone] (30 min) Complex 07/03/2017 Patient Education: Patient Medication Summary Completed 07/03/2017 Visit Plan: Abrasion left arm - Pt was instructed to keep the wound clean, wash with antibacterial soap, use triple antibiotic ointment, call if redness, pustular drainage, or any other acute concerns. 06/29/2017 Appointment: Marcela Oshea WPtel: [phone] (15 min) Moderate 06/29/2017 Patient Education: [...] plan. 06/18/2017 Appointment: Marcela Oshea WPtel: [phone] (15 min) Moderate 06/18/2017 Patient Education: [...] prilosec 06/07/2017 Appointment: Marcela Oshea WPtel: [phone] (10 min) Simple 06/07/2017 Patient Education: [...] doxycycline 05/17/2017 Appointment: Marcela Oshea WPtel: [phone] [phone] (30 min) Complex 05/17/2017 Patient Education: [...] [facility]. 05/04/2017 Appointment: Marcela Oshea WPtel: [phone] [phone] (30 min) Complex 05/04/2017 Patient Education: [...] Cough-resolved 03/15/2017 Appointment: Marcela Oshea WPtel: [phone] (15 min) Moderate 03/15/2017 Patient Education: Patient Medication Summary Completed 03/15/2017 Appointment: Marcela Oshea [facility]Ptel: [phone] (30 min) Complex 03/12/2017 Visit Plan: Feng [...] discussed 02/16/2017 Appointment: Marcela Oshea [facility]Ptel: [phone] (15 min) Moderate 02/16/2017 Patient Education: Patient [...] controlled. 02/12/2017 Appointment: Marcela Oshea WPtel: [phone] [phone] (30 min) Complex 02/12/2017 Patient Education: Patient Medication Summary Completed 02/12/2017 Appointment: Marcela Oshea WPtel: [phone] [phone] (30 min) Complex 02/06/2017 Visit Plan: [...] readings are starting to become less controlled. Sxomutcji-ooppfnyq-nfojimkp to monitor Generalized weakness-refer for PT-patient refuses today but will consider 02/05/2017 Appointment: Marcela Oshea WPtel: [phone] (30 min) Complex 02/05/2017 Patient Education: Patient Medication Summary Completed 02/05/2017 Appointment: Marcela Oshea WPtel: [phone] [place] (30 min) Complex 01/30/2017 Visit Plan: Acute confusion-uncontrolled diabetes-chronically noncompliant with treatment and stopped his insulin several months ago-r/o stroke vs DKA-Dr Ha in to evaluate patient-plan to admit for further work up and treatment-patient's called and she transported him to the hospital 01/29/2017 Appointment: Marcela Oshea WPtel: [phone] [phone] (30 min) Complex 01/29/2017 Patient Education: Patient Medication Summary Completed 01/29/2017 Patient Education: Obesity Completed 01/29/2017 Visit Plan: Right foot pain-MRI shows foreign body-appt with Dr Grewal for evaluation on Sunday. 10/13/2016 Appointment: Marcela Oshea WPtel: [address] [place], [place] [phone] [place] (15 min) Moderate 10/13/2016 Patient Education: Patient Medication Summary Completed 10/13/2016 Appointment: Marcela Oshea WPtel: [phone] [place] (30 min) Complex 10/12/2016 Visit Plan: Right foot azbm-bxgnemgu-cbvod washer dropped on foot-xray negative but pain continues to increase-recommend MRI of foot for further evaluation-refer to wound care for lesions on right foot, patient has diabetes and history of osteomyelitis-culture obtained today-continue oral abx- follow up in the office on , sooner if needed 10/09/2016 Visit Plan: Right foot pqtw-rfzdqyfk-iavla washer dropped on foot-xray negative but pain continues to increase-recommend MRI of foot for further evaluation-refer to wound care for lesions on right foot, patient has diabetes and history of osteomyelitis-culture obtained today-continue oral abx- follow up in the office on , sooner if needed 10/09/2016 Visit Plan: Right foot xziv-gmcwdmap-bntuv washer dropped on foot-xray negative but pain continues to increase-recommend MRI of foot for further evaluation-refer to wound care for lesions on right foot, patient has diabetes and history of osteomyelitis-culture obtained today-continue oral abx- follow up in the office on , sooner if needed 10/09/2016 Appointment: Marcela Oshea WPtel: [phone] [place] (30 min) Complex 10/09/2016 Patient Education: Patient Medication Summary Completed 10/09/2016 Visit Plan: Cellulitis - continue with oral antibiotics as previously directed, return to clinic as previously directed, call for acute change in symptoms, worsening redness, warmth, discharge. 10/06/2016 Appointment: Marcela Oshea WPtel: [address] [place], [place] [phone] (10 min) Simple 10/06/2016 Patient Education: Patient Medication Summary Completed 10/06/2016 Appointment: Marcela Oshea WPtel: [address] [place], [place] [phone] [place] [address] (30 min) Complex 08/24/2016 Referral: Sun Glynn Referral Completed 07/21/2016 Visit Plan: Low back pain- history of spinal fusion-patient for xray lumbar spine-RX sent to [facility] and instructed on use- topical voltaren samples provided and instructed on use. Ok to use tylenol as n eeded as well. The patient is to call the office if the pain is worsening or does not improve. Pressure ulcer left 4th toe-refer to Dr Glynn for evaluation 07/18/2016 Appointment: Marcela Oshea WPtel: [address] [place], [place] [phone] [place] [address] (30 min) Complex 07/18/2016 Patient Education: Patient Medication Summary Completed 07/18/2016 Patient Education: Obesity Completed 07/18/2016 Care Plan: Referral Order SNOMED-CT : [id number] Cancelled 07/18/2016 Visit Plan: Diabetes Mellitus - [...] glucose control. 06/22/2016 Appointment: Marcela Oshea WPtel: [address] [place], [place] [phone] (30 min) Complex 06/22/2016 Patient Education: Patient [...] CBC today 05/23/2016 Appointment: Marcela Oshea WPtel: [phone] (30 min) Complex 05/23/2016 Patient Education: Patient [...] plan. 05/15/2016 Appointment: Marcela Oshea WPtel: [phone] [place] (15 min) Moderate 05/15/2016 Patient Education: [...] with Dr Grewal for evaluation on Sunday. HOLD COREG FOLLOW UP IN 2 WEEKS [...] -monitor symptoms and call with any concerns stop the vraylar start on cymbalta 30mg [...] - stop Vraylar and start on cymbalta breathing treatments 3 times a day x [...] spray in the nasal steroid allergy spray. will check labs and EKG if it is negative will start you on an antibiotic -. chest pain - EKG and cardiac enzymes OK - discussed with Dr. Ha - will treat for pneumonia - pt is to notify clinic if symptoms do not improve, if they worsen, or with any changes questions, or concerns. . cough - improved - notify clinic [...] voltaren gel ulcer left 4th toe-refer to forging machine hand . Low back pain- history of spinal fusion-patient for xray lumbar spine-RX sent to [facility] and instructed on use-topical voltaren samples [...] anai edge called into [facility]. . DM-weight loss-not checking blood sugars-patient sent for labs today HTN-low ugnwt-zyxbjjm-nhiej labs Callus of foot and fissue of heel-refer to Dr Glynn for evaluation Esophageal Reflux - the patient has been counseled against excessive intake of caffeine, spicy foods, peppermint, and cinnamon - all of which can exacerbate esophageal reflux. The patient is to take medications as prescribed and call the office if the symptoms are not improving. REPEAT LABS BEFORE YOUR NEXT APPOINTMENT IN [...] to allow for greater blood glucose control. CT Chest sputum culture symbicort 2 puffs [...] bronchoscopy. Patient verbalized understanding of plan. . Cellulitis right foot-cultured today in the [...] do not improve or if they worsen. continue oral antibiotic start using topical antibiotic ointment to scabbed areas and cover with dressing follow up , sooner if needed refer to wound care mri left foot due to increased pain -concern for fracture from injury . Right foot ilsd-loyqhbsk-wjkza washer dropped on foot-xray negative but pain [...] for fracture from injury . Right foot baae-nqbimzph-ocbwn washer dropped on foot-xray negative but pain [...] for fracture from injury . Right foot lxdr-igshwmzd-igrqg washer dropped on foot-xray negative but pain [...] if needed Fatigue-check labs . Bilateral hip repx-wmhsbqme-rkveted IM injection administered today for c/o continued myalgia/arthralgia. Patient to start taking Meloxicam 15mg PO daily. Advised to return to clinic if symptoms do not improve. DOXYCYCLINE 100MG TWICE DAILY TORADOL INJECTION STOP KEFLEX FINISH THE LEVAQUIN . Cellulitis -right hand- stop keflex- start doxycycline as directed, return to clinic as previously directed, call for acute change in symptoms, worsening redness, warmth, discharge. Right hand pain-toradol injection today in the office Diabetic foot ulcer- patient to see specialist this afternoon START CHECKING BLOOD SUGARS . Diabetes Mellitus [...] readings are starting to become less controlled. 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 HTN -heart rate not well controlled -decrease [...] allow for greater blood glucose control. Joint zmfo-tcvomgii-etfpzfj-symptoms have improved -stop meloxicam due to upset [...] Cymbalta. Flu shot given today in clinic. RECOMMEND PROBIOTICS TWICE DAILY FLU SWAB ROCEPHIN [...] readings at home. Diabetes Mellitus -check labs Tjyvzcft-chbvbfd-zjwj bite-rx for doxycycline-follow up in 2 weeks [...] been appropriately prescribed for this patient. . cough - improved - continue with inhalers - continue with symbicort - rx for proair for PRN use when pt is feelign short of breath with activity.
--- NOTE | 2019-04-08 20:47 | History & Physicial ---
History of Present Illness History of Present Illness Date of Admission Apr 08, 2019 at 17:00 I consulted on this patient on 04/08/19 20:46 Attending Physician Rosa Maria Ha MD Admitting Physician Rosa Maria Ha MD Consult Allergies and Home Medications Allergies Coded Allergies: linezolid (Verified Allergy, Unknown, 05/28/18) Home Medications Acetaminophen 500 Mg Tablet, 1,000 MG PO HS, (Reported) TAKES 2 (500MG) TABLETS Amoxicillin/Potassium Clav 1 Each Tablet, 1 TAB PO TID, (Reported) 10 DAY THERAPY FILLED 12-26-18 Aspirin 81 Mg Tablet.dr, 81 MG PO DAILY Prescribed by: ROSA MARIA HA on 05/31/18 1042 Atorvastatin Calcium 80 Mg Tablet, 80 MG PO DAILY, (Reported) Carvedilol 6.25 Mg Tablet, 6.25 MG PO BID Prescribed by: ROSA MARIA HA on 05/31/18 104 Clonazepam 1 Mg Tablet, 2 MG PO HS, (Reported) TAKES 2 (1 MG) TABLETS Insulin Aspart 300 Units/3 Ml Solution, 10 UNITS SC TIDAC, (Reported) Insulin Degludec 200 Unit/1 Ml Insuln.pen, 50 UNITS SC DAILY, (Reported) Multivitamin 1 Each Tablet, 1 TAB PO DAILY, (Reported) Pantoprazole Sodium 40 Mg Tablet.dr, 40 MG PO DAILY, (Reported) Pregabalin 50 Mg Capsule, 50 MG PO HS, (Reported) Ticagrelor 90 Mg Tablet, 90 MG PO BID Prescribed by: ROSA MARIA HA on 05/31/18 1042 Valsartan 80 Mg Tablet, 40 MG PO DAILY TAKES 1/2 (80MG) TABLET -take bp prior to medication and hold if blood pressure is less than 110 on top number Prescribed by: ROSA MARIA HA on 01/03/19 0953 [Nitroglycerin] 0.4 MG BTL, 0 MG SL UD PRN for CHEST PAIN Prescribed by: ROSA MARIA HA on 01/03/19 0953 Past Bmttncr-Vwauge-Pxuljb Hx Patient Social History Marrital Status: Employed/Student: employed Alcohol Use: Denies Use Recreational Drug Use: No Smoking Status: Never a Smoker 2nd Hand Smoke Exposure: No Recent Foreign Travel: Yes Contact w/other who traveled: No Recent Hopitalizations: Yes (JANUARY 2019 HEART STENT) Recent Infectious Disease Expo: No Immunizations Up To Date Tetanus Booster (TDap): Unknown Pediatric: No Date of Pneumonia Vaccine: Jan 02, 2011 Date of Influenza Vaccine: Aug 07, 2018 Seasonal Allergies Seasonal Allergies: No Surgeries Yes (ACL; Wrist; Heart stents) Abdominal, Amputation, Appendectomy, Gallbladder, Orthopedic, Tonsillectomy Respiratory No Currently Using CPAP: No Currently Using BIPAP: No Cardiovascular Yes (Heart stents) Coronary Artery Disease, Heart Attack, High Cholesterol, Hypertension Neurological Yes Neuropathy, Stroke Reproductive System Hx Reproductive Disorders: No Sexually Transmitted Disease: No HIV/AIDS: No Genitourinary No Kidney Stones Gastrointestinal Yes Abdominal Hernia Musculoskeletal Yes (OSTEOMYELITIS WITH MULTIPLE TOE AMPUTATIONS, BACK FUSION X3) Degenerate Disk Disease, Arthritis, Chronic Back Pain Endocrine History of Endocrine Disorders: Yes Endocrine Disorders: Diabetes, Insulin dep HEENT History of HEENT Disorders: No Loss of Vision: Bilateral Hearing Impairment: Denies Cancer No Psychosocial History of Psychiatric Problem: Yes Behavioral Health Disorders: Anxiety, Depression Integumentary History of Skin or Integumenta: No Blood Transfusions History of Blood Disorders: No Adverse Reaction to a Blood Tr: No Family Medical History Significant Family History: Heart Disease, Diabetes, Hypertension, Psychiatric Problems, Renal Disease, Vascular Disease Family Hx: Family history: Cardiovascular disease 19 FATHER Family history: Diabetes mellitus 19 MOTHER Physical Exam Vital Signs Vital Signs - First Documented 04/08/19 04/08/19 15:25 17:38 Temp 95.6 Pulse 92 Resp 14 B/P (MAP) 102/72 (82) Pulse Ox 100 O2 Delivery Room Air Capillary Refill : Less Than 3 Seconds Height, Weight, BMI Height: 6'2.00" Weight: 248lbs. 5.0oz. 112.104382qs; 31.9 BMI Method:Stated Clinical Quality Measures DVT/VTE Risk/Contraindication: Risk Factor Score Per Nursin RFS Level Per Nursing on Admit: 4+=Very High ROSA MARIA HA MD Apr 08, 2019 20:47
--- OUTSIDE RECORDS SUMMARY | 2019-04-08 20:49 | XMS REPORT | CCD ---
Author Author Madeline Kennedy MD, [facility] Address [address] [place] [address] Phone Care Team Providers Care [place]fgrass Technician Name Role Phone PP Unavailable CCM Unavailable Summary Purpose Interface Exchange Insurance Providers Payer name Policy type / Coverage type Covered republican ID Effective Begin Date Effective End Date Blue Cross Blue Shield [facility] Blue Cross/Blue Shield [id number] Unknown Family history Father Diagnosis Age At Onset Hyperlipidemia Unknown Heart Attack Unknown Mother Diagnosis Age At Onset Hypertension Unknown Social History Social History Element Codes Description Effective Dates Marital status Unknown Mignon 01/20/2016 Number of children Unknown 4 01/20/2016 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/[address]: 771419359 Never smoker 01/20/[address]: 661578906 Never drinks alcohol 01/20/2016 Allergies, Adverse Reactions, [...] E11.65 Active 06/21/2016 Unknown VACCIN FOR INFLUENZA ICD- 9: V04.81 ICD-10: Z23 Active 08/16/2017 Unknown Zoster [...] ICD-10: J01.01 Active 02/16/2017 Unknown Nasal congestion ICD-9: 478.19 ICD-10: R09.81 [...] ICD-10: M20.5X2 Active 07/17/2016 Unknown Mixed hyperlipidemia ICD- 9: 272.2 ICD-10: E78.2 Active 05/22/2016 Unknown Other [...] ICD-10: E11.65 06/21/2016 Active VACCIN FOR INFLUENZA ICD- 9: V04.81 ICD-10: Z23 08/16/2017 Active Zoster without [...] 461.0 ICD-10: J01.01 02/16/2017 Active Nasal congestion ICD-9: 478.19 ICD-10: R09.81 02/16/2017 Active Disorientation, unspecified ICD-9: 293.0 ICD-10: R41.0 01/29/2017 Active Muscle weakness (generalized) ICD-9: 728.87 ICD-10: M62.81 01/29/2017 Active Pain in right foot ICD- 9: 729.5 ICD-10: M79.671 10/08/2016 Active Low back pain ICD-9: 724.2 ICD-10: M54.5 07/17/2016 Active Other deformities of toe(s) (acquired), left foot ICD-9: 735.5 ICD-10: M20.5X2 07/17/2016 Active Mixed hyperlipidemia ICD- 9: 272.2 ICD-10: E78.2 05/22/2016 Active Other hemoglobinopathies [...] Instructions doxycycline hyclate 100 mg capsule RxNorm: 6222490 1 Capsule(s) PO BID 08/27/2017 09/09/2017 Active prednisone 20 mg tablet RxNorm: 105601 2 Tablet(s) PO daily 08/27/2017 08/31/2017 Inactive clopidogrel 75 mg tablet RxNorm: 560799 1 Tablet(s) PO daily 08/24/2017 02/19/2018 Active atorvastatin 40 mg tablet RxNorm: 932712 1 Tablet(s) PO QHS 08/24/2017 02/19/2018 Active losartan 25 mg tablet RxNorm: 433469 TAKE ONE TABLET BY MOUTH DAILY 08/22/2017 02/17/2018 Active Toujeo SoloStar 300 unit/mL (1.5 mL) subcutaneous insulin pen RxNorm: 4675767 45 Unit(s) daily 08/17/2017 08/20/2017 Inactive mupirocin 2 % topical ointment RxNorm: 413023 1 Application TOP TID to the lesions on chest 08/16/2017 08/25/2017 Inactive Toujeo SoloStar 300 unit/mL (1.5 mL) subcutaneous insulin pen RxNorm: 1155633 40 Unit(s) daily 08/16/2017 08/16/2017 Inactive valacyclovir 1 gram tablet RxNorm: 294848 1 Tablet(s) PO TID 07/26/2017 08/01/2017 Inactive clonazepam 1 mg tablet RxNorm: 651037 1 Tablet(s) PO Q8 as needed 07/03/2017 09/30/2017 Active Levaquin 500 mg tablet RxNorm: 501497 1 Tablet(s) PO daily 06/22/2017 06/25/2017 Inactive Levaquin 500 mg tablet RxNorm: 233360 1 Tablet(s) PO daily 06/18/2017 06/21/2017 Inactive losartan 25 mg tablet RxNorm: 644350 1 Tablet(s) PO daily 06/18/2017 08/16/2017 Inactive nystatin 100,000 unit/mL oral suspension RxNorm: 080630 5 Milliliter(s) PO QID Swish et swallow 06/18/2017 06/17/2017 Inactive nystatin 100,000 unit/mL oral suspension RxNorm: 562372 5 Milliliter(s) PO QID Swish et swallow 06/18/2017 06/27/2017 Inactive Cipro 500 mg tablet RxNorm: 641859 1 Tablet(s) PO BID 06/12/2017 06/18/2017 Inactive Cipro 500 mg tablet RxNorm: 868437 1 Tablet(s) PO BID 06/12/2017 06/11/2017 Inactive Toujeo SoloStar 300 unit/mL (1.5 mL) subcutaneous insulin pen RxNorm: 2929889 INJECT 10 UNITS UNDER THE SKIN DAILY 06/12/2017 08/15/2017 Inactive Keflex 500 mg capsule RxNorm: 904500 1 Capsule(s) PO TID 06/07/2017 06/13/2017 Inactive doxycycline hyclate 100 mg capsule RxNorm: 6842054 1 Capsule(s) PO BID 05/17/2017 05/21/2017 Inactive doxycycline hyclate 100 mg capsule RxNorm: 3497333 1 Capsule(s) PO BID 05/11/2017 05/16/2017 Inactive losartan 25 mg tablet RxNorm: 377914 1 Tablet(s) PO daily 03/01/2017 06/17/2017 Inactive atorvastatin 40 mg tablet RxNorm: 814007 1 Tablet(s) PO daily 03/01/2017 08/23/2017 Inactive clopidogrel 75 mg tablet RxNorm: 548862 1 Tablet(s) PO daily 03/01/2017 08/23/2017 Inactive Flonase Allergy Relief 50 mcg/actuation nasal spray,suspension RxNorm: 0684891 2 [place] NASAL daily 02/16/2017 02/25/2017 Inactive Augmentin 875 mg-125 mg tablet RxNorm: 869290 1 Tablet(s) PO BID 02/16/2017 02/22/2017 Inactive GET PROBIOTIC TO TAKE WHILE ON ABX Tamiflu 75 mg capsule RxNorm: 022774 1 Capsule(s) PO BID 02/16/2017 02/20/2017 Inactive ceftriaxone 500 mg solution for injection RxNorm: 5306390 1 Milliliter(s) Inj 02/16/2017 02/16/2017 Inactive Kenalog 40 mg/mL suspension for injection RxNorm: 8929040 1 Milliliter(s) Inj 02/16/2017 02/16/2017 Inactive Toujeo SoloStar 300 unit/mL (1.5 mL) subcutaneous insulin pen RxNorm: 5050434 25 Unit(s) SQ QAM 02/12/2017 06/10/2017 Inactive Toujeo SoloStar 300 unit/mL (1.5 mL) subcutaneous insulin pen RxNorm: 1224791 10 Unit(s) SQ QAM 02/05/2017 02/11/2017 Inactive lisinopril 10 mg tablet RxNorm: 740088 1 Tablet(s) PO daily 02/01/2017 02/28/2017 Inactive atorvastatin 40 mg tablet RxNorm: 660382 1 Tablet(s) PO daily 02/01/2017 02/28/2017 Inactive doxycycline hyclate 100 mg capsule RxNorm: 2537242 1 Capsule(s) PO BID 02/01/2017 02/10/2017 Inactive clonazepam 1 mg tablet RxNorm: 088306 1 Tablet(s) PO Q8 as needed 10/09/2016 01/05/2017 Inactive ceftriaxone 1 gram solution for injection RxNorm: 3441549 Inj 10/06/2016 10/06/2016 Inactive cyclobenzaprine 10 mg tablet RxNorm: 105778 1/2-1 Tablet(s) PO TID PRN 07/18/2016 01/28/2017 Inactive clonazepam 1 mg tablet RxNorm: 506225 1 Tablet(s) PO Q8 as needed 05/31/2016 05/29/2016 Inactive clonazepam 1 mg tablet RxNorm: 665364 1 Tablet(s) PO Q8 as needed 05/31/2016 08/28/2016 Inactive Toujeo SoloStar 300 unit/mL (1.5 mL) subcutaneous insulin pen RxNorm: 8569388 10 Unit(s) SQ daily 05/23/2016 01/28/2017 Inactive Crestor 10 mg tablet RxNorm: 353095 1 Tablet(s) PO QHS 05/19/2016 01/28/2017 Inactive Crestor 10 mg tablet RxNorm: 485651 1 Tablet(s) PO QHS 05/19/2016 05/18/2016 Inactive clonazepam 1 mg tablet RxNorm: 995238 1 Tablet(s) PO Q8 as needed 04/25/2016 05/30/2016 Inactive prednisone 20 mg tablet RxNorm: 378610 3 Tablet(s) PO daily 02/11/2016 02/10/2016 Inactive prednisone 20 mg tablet RxNorm: 205415 3 Tablet(s) PO daily 02/11/2016 05/14/2016 Inactive Kenalog 40 mg/mL suspension for injection RxNorm: 8412475 Milliliter(s) Inj 01/20/2016 01/20/2016 Inactive acetaminophen 500 mg tablet RxNorm: 003546 1-2 Tablet(s) PO as needed No Start Date Active clopidogrel 75 mg tablet RxNorm: 193214 1 Tablet(s) PO daily No Start Date 02/28/2017 Inactive clonazepam 1 mg tablet RxNorm: 503640 1 Tablet(s) PO QHS No Start Date 04/24/2016 Inactive acyclovir 400 mg tablet RxNorm: 289528 2 Tablet(s) PO 5x daily No Start Date 02/28/2017 Inactive Medication Administered Medication Codes Instructions Start Date Status ceftriaxone 500 mg solution for injection RxNorm: 1497137 1Milliliter 02/16/2017 No longer Active Kenalog 40 mg/mL suspension for injection RxNorm: 7582482 1Milliliter 02/16/2017 No longer Active ceftriaxone 1 gram solution for injection RxNorm: 9608951 10/06/2016 No longer Active Kenalog 40 mg/mL suspension for injection RxNorm: 7426009 Milliliter 01/20/2016 No longer Active Immunizations Vaccine Codes Date Status Influenza CVX: 141 08/16/2017 completed Assessments Condition Codes Effective Dates Other malaise ICD-10: R53.81 ICD-9: 780.79 08/27/2017 Pain in right shoulder ICD-10: M25.511 ICD-9: 719.41 08/27/2017 Pain in left shoulder ICD-10: M25.512 ICD-9: 719.41 08/27/2017 Other fatigue ICD-10: R53.83 ICD-9: 780.79 08/27/2017 Essential (primary) hypertension ICD-10: I10 ICD-9: 401.1 08/16/2017 VACCIN FOR INFLUENZA ICD-10: Z23 ICD-9: V04.81 08/16/2017 Type 2 diabetes mellitus with hyperglycemia ICD-10: E11.65 ICD-9: 250.00 08/16/2017 Zoster without complications ICD-10: B02.9 ICD-9: 053.9 07/26/2017 Cellulitis of right lower limb ICD-10: L03.115 ICD-9: 682.7 07/03/2017 Laceration without foreign body of left forearm, initial encounter ICD-10: S51.812A ICD-9: 881.00 06/29/2017 Dysuria ICD-10: R30.0 ICD-9: 788.1 06/21/2017 Type 2 diabetes mellitus with foot ulcer ICD-10: E11.621 ICD-9: 250.80 06/18/2017 Acute laryngopharyngitis ICD-10: J06.0 ICD-9: 465.0 06/07/2017 Gastro-esophageal reflux disease without esophagitis ICD-10: K21.9 ICD-9: 530.81 06/07/2017 Insect bite (nonvenomous) of abdominal wall, initial encounter ICD-10: S30.861A ICD-9: 911.4 05/17/2017 Allergic contact dermatitis due to plants, except food ICD-10: L23.7 ICD-9: 692.6 05/04/2017 Cough ICD-10: R05 [...] left foot ICD-10: M20.5X2 ICD-9: 735.5 07/18/2016 Mixed hyperlipidemia ICD-10: E78.2 ICD-9: 272.2 05/23/2016 Other hemoglobinopathies ICD-10: 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 09/05/2017 [place]ley Spotted Fever Igg/Igm 999917 RMSF, IGM 0.17 index 09/05/2017 [place]ley Spotted Fever Igg/Igm 346521 FEI MT SPOTTED FEVER IGG EIA FLEX . 09/05/2017 [place]ley Spotted Fever Igg/Igm 791902 RMSF, IGG SCREEN-FLEX Positive 09/05/2017 Fei Mtn Spot'D Fev Igg 350991 RMSF, IGG- TITER IFA <1:64 09/05/2017 Ehrlichia Chaffeensis Antibody Igm 624619 EHRLICHIA CHAFFEENSIS IGM < 1:16 09/03/2017 Ehrlichia Chaffeensis Antibody Igg 283359 EHRLICHIA CHAFFEENSIS IGG <1:64 09/03/2017 Lymes Disease Total Antibodies With Western Blot Reflex B. BURGDORFERI, IGG/IGM 0.223 08/30/2017 Lymes Disease Total Antibodies With Western Blot Reflex 08/30/2017 C-Reactive Protein Qnt Crqnt CRP 0.00 mg/dl 08/27/2017 Sed Rate Ord21 ESR 8 mm/hr 08/27/2017 %Hba1C Jlv855 % HbA1c 88123- 6 12.5 % 08/16/2017 %Hba1C Crh403 Gluc Ave 312 mg/dL 08/16/2017 Comp Metabolic Res042 NA 135 mEq/L 08/16/2017 Comp Metabolic Itu310 K 4.1 mEq/L 08/16/2017 Comp Metabolic Sax990 CL 98 mEq/L 08/16/2017 Comp Metabolic Atc049 CO2 28.0 mEq/L 08/16/2017 Comp Metabolic Lph651 ANION GAP 13 08/16/2017 Comp Metabolic Quf497 GLUCOSE 299 mg/dL 08/16/2017 Comp Metabolic Mxi397 Creat 0.9 mg/dL 08/16/2017 Comp Metabolic Qun979 eGFR 90 ml/min/1.73m2 08/16/2017 Comp Metabolic Jrv616 BUN 20 mg/dL 08/16/2017 Comp Metabolic Zec210 B/C Ratio 21.5 Ratio 08/16/2017 Comp Metabolic Tsn482 CALCIUM 9.2 mg/dL 08/16/2017 Comp Metabolic Ahd505 ALK PHOS 84 U/L 08/16/2017 Comp Metabolic Rqj976 AST(SGOT) 19 U/L 08/16/2017 Comp Metabolic Sng586 ALT(SGPT) 24 U/L 08/16/2017 Comp Metabolic Gvi370 BILI T 1.1 mg/dL 08/16/2017 Comp Metabolic Hhs473 ALBUMIN 4.2 g/dL 08/16/2017 Comp Metabolic Woe337 TPRO 7.2 g/dL 08/16/2017 Comp Metabolic Pyx841 GLOB 3.0 g/dL 08/16/2017 Comp Metabolic Khy283 A/G Ratio 1.4 Ratio 08/16/2017 Comp Metabolic Vcz690 Osmo 284 mOsmo 08/16/2017 Urine Culture Ucult Preliminary NO Growth Day 1 06/23/2017 Urine Culture Ucult Complete NO Growth Day 2 06/23/2017 C RAP A SC [id number] Strep A Negative 06/08/2017 Cbc With Differential Ord2 WBC 6.14 K/ul [...] 31.7 pg 05/04/2017 Cbc With Differential Ord2 [place]% 8.5 [...] Differential Ord2 Baso ABS# 0.0 K/ul 05/04/2017 Tsh Ord6 hTSH II 1.47 uIU/mL 05/04/2017 Comp Metabolic Zxo258 NA 135 mEq/L 05/04/2017 Comp Metabolic Qdv743 K 4.2 mEq/L 05/04/2017 Comp Metabolic Gnx925 CL 99 mEq/L 05/04/2017 Comp Metabolic Pfr315 CO2 26.0 mEq/L 05/04/2017 Comp Metabolic Yeq952 ANION GAP 14 05/04/2017 Comp Metabolic Rex858 GLUCOSE 277 mg/dL 05/04/2017 Comp Metabolic Gbn522 Creat 0.9 mg/dL 05/04/2017 Comp Metabolic Zys545 eGFR 96 ml/min/1.73m2 05/04/2017 Comp Metabolic Iws520 BUN 23 mg/dL 05/04/2017 Comp Metabolic Xgp432 B/C Ratio 26.1 Ratio 05/04/2017 Comp Metabolic Qxb022 CALCIUM 8.9 mg/dL 05/04/2017 Comp Metabolic Sdw850 ALK PHOS 81 U/L 05/04/2017 Comp Metabolic Wyw541 AST(SGOT) 21 U/L 05/04/2017 Comp Metabolic Rfs593 ALT(SGPT) 27 U/L 05/04/2017 Comp Metabolic Ojx209 BILI T 1.2 mg/dL 05/04/2017 Comp Metabolic Inp810 ALBUMIN 4.0 g/dL 05/04/2017 Comp Metabolic Ruw144 TPRO 6.7 g/dL 05/04/2017 Comp Metabolic Jdv199 GLOB 2.7 g/dL 05/04/2017 Comp Metabolic Fhc434 A/G Ratio 1.5 Ratio 05/04/2017 Comp Metabolic Oak619 Osmo 284 mOsmo 05/04/2017 %Hba1C Eta682 % HbA1c 14902- 6 9.5 % 05/04/2017 %Hba1C Xtb936 Gluc Ave 226 mg/dL 05/04/2017 C A/B FLU 6570268 Influenza A Scr Negative 02/16/2017 C A/B FLU 2260614 Influenza B Scr Positive 02/16/2017 Cbc With [...] Lipid Ord30 C/HDL 8.3 Ratio 05/17/2016 %Hba1C Woj905 % HbA1c 20326- 6 12.4 % 05/16/2016 %Hba1C Cfn882 Gluc Ave 309 mg/dL 05/16/2016 Cbc With [...] 30.4 pg 05/15/2016 Cbc With Differential Ord2 [place]% 7.8 [...] Differential Ord2 Baso ABS# 0.0 K/ul 05/15/2016 Comp Metabolic Urf086 NA 135 mEq/L 05/15/2016 Comp Metabolic Ceo454 K 3.9 mEq/L 05/15/2016 Comp Metabolic Jwr620 CL 96 mEq/L 05/15/2016 Comp Metabolic Szw907 CO2 27.0 mEq/L 05/15/2016 Comp Metabolic Nzm846 ANION GAP 16 05/15/2016 Comp Metabolic Hsd628 GLUCOSE 183 mg/dL 05/15/2016 Comp Metabolic Ooa403 Creat 1.1 mg/dL 05/15/2016 Comp Metabolic Dfd964 eGFR 71 ml/min/1.73m2 05/15/2016 Comp Metabolic Mhp263 BUN 17 mg/dL 05/15/2016 Comp Metabolic Zqa471 B/C Ratio 14.9 Ratio 05/15/2016 Comp Metabolic Lqc071 CALCIUM 9.6 mg/dL 05/15/2016 Comp Metabolic Koj300 ALK PHOS 100 U/L 05/15/2016 Comp Metabolic Wtp116 AST(SGOT) 20 U/L 05/15/2016 Comp Metabolic Hjm022 ALT(SGPT) 20 U/L 05/15/2016 Comp Metabolic Qxl068 BILI T 1.3 mg/dL 05/15/2016 Comp Metabolic Gat938 ALBUMIN 4.6 g/dL 05/15/2016 Comp Metabolic Mah817 TPRO 8.1 g/dL 05/15/2016 Comp Metabolic Kme536 GLOB 3.5 g/dL 05/15/2016 Comp Metabolic Qit305 A/G Ratio 1.3 Ratio 05/15/2016 Comp Metabolic Tzk684 Osmo 276 mOsmo 05/15/2016 Tsh Ord6 hTSH II 1.70 uIU/mL 05/15/2016 Review of Systems System Result Effective [...] of skin Location: face 05/04/2017 patch left rastafari Full Exam - General 1994 Constitutional general [...] NO PRSV 4 MENA 3 YRS+ CPT-4: 57365Ettlnoz 08/16/2017 IMMUNIZATION ADMIN CPT-4: 42955Ijfnnws 08/16/2017 URINALYSIS NONAUTO W/O SCOPE CPT-4: 66085Frdvavm 06/21/2017 TRIAMCINOLONE ACET INJ NOS CPT-4: O8290Zjnfald 05/04/2017 THER/PROPH/DIAG INJ SC/IM CPT-4: 64090Jkibqyj 05/04/2017 TRIAMCINOLONE ACET INJ NOS CPT-4: T9153Zjuercf 02/16/2017 ROCEPHIN, PER 250 MG CPT-4: Q8224Ilbhamf 02/16/2017 ROCEPHIN, PER 250 MG CPT-4: U2554Veuhita 10/06/2016 URINALYSIS NONAUTO W/O SCOPE CPT-4: 27731Wszwolu 07/18/2016 TRIAMCINOLONE ACET INJ NOS CPT-4: J1037Mmrprof 01/20/2016 Vital Signs Date Vital 08/27/2017 Blood Pressure 1: 134/76 Code: 8480-6 Heart Rate 1: 98 bpm Height: SpO2: 97% Weight: 08/16/2017 Blood Pressure 1: 128/80 Code: 8480-6 BMI: 32.0 Code: 27797-6 Heart Rate 1: 94 bpm Height: 6'2" [...] 1: 142/92 Code: 8480-6 BMI: 31.8 Code: 95777-8 Heart Rate 1: 102 bpm Height: 6'2" [...] 1: 122/72 Code: 8480-6 BMI: 31.8 Code: 95462-4 Heart Rate 1: 85 bpm Height: 6'2" SpO2: 96% Temperature: 36.6 (C) / 97.9 (F) Weight: 248 lbs 02/12/2017 Blood Pressure 1: 126/76 Code: 8480-6 BMI: 31.8 Code: 34935-9 Heart Rate 1: 106 bpm Height: 6'2" SpO2: 91% Weight: 248 lbs 02/05/2017 Blood Pressure 1: 146/86 Code: 8480-6 BMI: 31.9 Code: 74440-7 Heart Rate 1: 98 bpm Height: 6'2" SpO2: 87% Temperature: 36.7 (C) / 98.0 (F) Weight: 248 lbs 8 oz 01/29/2017 Blood Pressure 1: 132/84 Code: 8480-6 BMI: 31.8 Code: 06091-5 Heart Rate 1: 83 bpm Height: 6'2" SpO2: 97% Weight: 248 lbs 10/13/2016 Blood Pressure 1: 128/72 Code: 8480-6 Heart Rate 1: 86 bpm SpO2: 94% 10/09/2016 Blood Pressure 1: 128/68 Code: 8480-6 Heart Rate 1: 136 bpm SpO2: 94% Temperature: 36.8 (C) / 98.2 (F) 10/06/2016 Blood Pressure 1: 140/80 Code: 8480-6 BMI: 32.1 Code: 76204-6 Heart Rate 1: 94 bpm Height: 6'2" SpO2: 95% Weight: 250 lbs 07/18/2016 Blood Pressure 1: 128/86 Code: 8480-6 BMI: 32.1 Code: 49438-8 Heart Rate 1: 89 bpm Height: 6'2" SpO2: 96% Weight: 250 lbs 06/22/2016 Blood Pressure 1: 118/70 Code: 8480-6 BMI: 32.1 Code: 00782-4 Heart Rate 1: 70 bpm Height: 6'2" SpO2: 97% Weight: 250 lbs 05/23/2016 Blood Pressure 1: 128/80 Code: 8480-6 BMI: 32.1 Code: 26194-3 Heart Rate 1: 76 bpm Height: 6'2" SpO2: 98% Weight: 250 lbs 05/15/2016 Blood Pressure 1: 110/90 Code: 8480-6 BMI: 31.3 Code: 27005-7 Heart Rate 1: 111 bpm Height: 6'2" SpO2: 97% Temperature: 36.6 (C) / 97.8 (F) Weight: 244 lbs 01/20/2016 Blood Pressure 1: 128/76 Code: 8480-6 BMI: 33.0 Code: 47191-8 Heart Rate 1: 103 bpm Height: 6'2" [...] in left shoulder[ICD10: M25.512] Madeline Ha MD, [facility] CPT- 4: 32369 08/27/2017 ([id number]) 85470 EST. PATIENT, LEVEL IV Diagnosis: Essential (primary) hypertension[ICD10: I10] Diagnosis: Type 2 diabetes mellitus with hyperglycemia[ICD10: E11.65] Diagnosis: VACCIN FOR INFLUENZA[ICD10: Z23] Melida Ha MD, [facility] CPT-4: 05113 08/16/2017 [id number] EST. PATIENT, LEVEL III Diagnosis: Zoster without complications[ICD10: B02.9] Madeline Ha MD, [facility] CPT-4: 57550 07/26/2017 ([id number]) 72577 EST. PATIENT, LEVEL III Diagnosis: Cellulitis of right lower limb[ICD10: L03.115] Marcela Ha MD, [facility] CPT-4: 89567 07/03/2017 [id number] EST. PATIENT, LEVEL II Diagnosis: Laceration without foreign body of left forearm, initial encounter[ICD10: S51.812A] Marcela Ha MD, [facility] CPT-4: 13840 06/29/2017 ([id number]) 99199 EST. PATIENT, LEVEL III Diagnosis: Cellulitis of right lower limb[ICD10: L03.115] Diagnosis: Type 2 diabetes mellitus with foot ulcer[ICD10: E11.621] Marcela Ha MD [facility] CPT-4: 32760 06/18/2017 ([id number]) 55677 EST. PATIENT, LEVEL IV Diagnosis: Cellulitis of right lower limb[ICD10: L03.115] Diagnosis: Acute laryngopharyngitis[ICD10: J06.0] Diagnosis: Gastro-esophageal reflux disease without esophagitis[ICD10: K21.9] Marcela Ha MD [facility] CPT-4: 42522 06/07/2017 ([id number]) 91972 EST. PATIENT, LEVEL III Diagnosis: Type 2 diabetes mellitus with hyperglycemia[ICD10: E11.65] Diagnosis: Insect bite (nonvenomous) of abdominal wall, initial encounter[ICD10: S30.861A] Marcela Ha MD [facility] CPT-4: 07476 05/17/2017 ([id number]) 07450 EST. PATIENT, LEVEL III Diagnosis: Allergic contact dermatitis due to plants, except food[ICD10: L23.7] Melida Ha MD, [facility] CPT-4: 71109 05/04/2017 ([id number]) 29428 EST. PATIENT, LEVEL III Diagnosis: Essential (primary) hypertension[ICD10: I10] Marcela Ha MD [facility] CPT-4: 72360 03/15/2017 ([id number]) 09658 EST. PATIENT, LEVEL III Diagnosis: Cough[ICD10: R05] Diagnosis: Essential (primary) hypertension[ICD10: I10] Marcela Ha MD [facility] CPT-4: 75124 03/01/2017 ([id number]) 82436 EST. PATIENT, LEVEL III Diagnosis: Cough[ICD10: R05] Diagnosis: Nasal congestion[ICD10: R09.81] Diagnosis: Acute recurrent maxillary sinusitis[ICD10: J01.01] Marcela Ha MD [facility] CPT-4: 17125 02/16/2017 ([id number]) 10593 EST. PATIENT, LEVEL III Diagnosis: Type 2 diabetes mellitus with hyperglycemia[ICD10: E11.65] Marcela Ha MD [facility] CPT-4: 44601 02/12/2017 ([id number]) 72399 EST. PATIENT, LEVEL IV Diagnosis: Type 2 diabetes mellitus with hyperglycemia[ICD10: E11.65] Diagnosis: Muscle weakness (generalized)[ICD10: M62.81] Diagnosis: Disorientation, unspecified[ICD10: R41.0] Marcela Ha MD, [facility] CPT-4: 78644 02/05/2017 ([id number]) Patient admitted to the hospital from clinic (NO CHARGE) Diagnosis: Type 2 diabetes mellitus with hyperglycemia[ICD10: E11.65] Diagnosis: Disorientation, unspecified[ICD10: R41.0] Diagnosis: Muscle weakness (generalized)[ICD10: M62.81] Marcela Ha MD [facility] CPT-4: 23931G 01/29/2017 ([id number]) Miscellaneous no charge Diagnosis: Cellulitis of right lower limb[ICD10: L03.115] Marcela Ha MD, [facility] CPT-4: 74423 10/13/2016 ([id number]) Miscellaneous no charge Diagnosis: Type 2 diabetes mellitus with foot ulcer[ICD10: E11.621] Diagnosis: Pain in right foot[ICD10: M79.671] Marcela Ha MD [facility] CPT- 4: 17357 10/09/2016 [id number] EST. PATIENT, LEVEL II Diagnosis: Cellulitis of right lower limb[ICD10: L03.115] Marcela Ha MD, [facility] CPT-4: 86930 10/06/2016 ([id number]) 40023 EST. PATIENT, LEVEL IV Diagnosis: Low back pain[ICD10: M54.5] Diagnosis: Other deformities of toe(s) (acquired), left foot[ICD10: M20.5X2] Diagnosis: Type 2 diabetes mellitus with foot ulcer[ICD10: E11.621] Marcela Ha MD, [facility] CPT-4: 91966 07/18/2016 ([id number]) 90459 EST. PATIENT, LEVEL III Diagnosis: Type 2 diabetes mellitus with hyperglycemia[ICD10: E11.65] Marcela Ha MD, [facility] CPT-4: 73488 06/22/2016 ([id number]) 24228 EST. PATIENT, LEVEL IV Diagnosis: Type 2 diabetes mellitus with hyperglycemia[ICD10: E11.65] Diagnosis: Mixed hyperlipidemia[ICD10: E78.2] Diagnosis: Other hemoglobinopathies[ICD10: D58.2] Marcela Ha MD, [facility] CPT-4: 89320 05/23/2016 ([id number]) 69991 EST. PATIENT, LEVEL IV Diagnosis: Type 2 diabetes mellitus with other specified complication[ICD10: E11.69] Diagnosis: Dehydration[ICD10: E86.0] Marcela Ha MD, [facility] CPT-4: 23793 05/15/2016 ([id number]) OFFICE VISIT, NEW - LEVEL 3 Diagnosis: Allergic contact dermatitis due to plants, except food[ICD10: L23.7] Madeline Ha MD, [facility] CPT-4: 84077 01/20/2016 Plan of Care Planned Activity Notes Codes Status Date Visit Plan: Fatigue, malaise, joint pains - [...] or concerns. 08/27/2017 Appointment: Madeline Kennedy WPtel: [address] [place], [place] [phone] (15 min) Moderate 08/27/2017 Patient Education: Patient Medication Summary Completed 08/27/2017 Visit Plan: Hypertension - well controlled - continue with current medications, continue with no added salt diet. Pt has been encouraged to exercise daily.The pt has been advised to call the office if there are any acute concerns about change in blood pressure readings at home.Diabetes Mellitus - controlled - per recent FSBS [...] are starting to become less controlled. check [id number] shot today - 08/16/2017 Appointment: Melida Ha WPtel: [facility] (30 min) Complex 08/16/2017 Patient Education: Patient Medication Summary Completed 08/16/2017 Patient Education: Obesity Completed 08/16/2017 Appointment: Madeline Kennedy WPtel: [address] [place], [place] [id number] (30 min) Complex 08/07/2017 Visit Plan: Shingles - Herpes Zoster - acute in onset - pt started on acyclovir and instructed to call if symptoms worsen or if the pt is concerned about the symptoms. Pt has been advised to avoid contact with persons who may be , or infants, or immunocompromised individuals.Pt has been instructed that shingles will continue to break out and eventually scab over a two week period, until all of the vesicles are scabbed, the pt is to be considered contagious. 07/26/2017 Appointment: [facility] Kennedy [facility]el[id number] (15 min) Moderate 07/26/2017 Patient Education: Patient Medication Summary Completed 07/26/2017 Visit Plan: Cellulitis right foot-cultured today in the office-home health to reapply wound vac--appt with wound care on to evaluate for debridement- 07/03/2017 Appointment: Marcela Oshea WPtel: [id number] [place] (30 min) Complex 07/03/2017 Patient Education: Patient Medication Summary Completed 07/03/2017 Visit Plan: Abrasion left arm - Pt was instructed to keep the wound clean, wash with antibacterial soap, use triple antibiotic ointment, call if redness, pustular drainage, or any other acute concerns. 06/29/2017 Appointment: Marcela Oshea WPtel: [facility]9 [phone] (15 min) Moderate 06/29/2017 Patient [...] of plan. 06/18/2017 Appointment: Marcela Oshea WPtel: [address] [place] [address] (15 min) Moderate 06/18/2017 Patient Education: Patient Medication Summary Completed 06/18/2017 Visit Plan: Cellulitis - culture of wound today-start abx and directed, call for acute change in symptoms, worsening redness, warmth, discharge.Sore throat- strep swab-chloraseptic spray-add prilosec twice daily for acid reflux symptoms GERD-low spice, low fat diet-start prilosec 06/07/2017 Visit Plan: Cellulitis - culture of wound today-start abx and directed, call for acute change in symptoms, worsening redness, warmth, discharge.Sore throat- strep swab-chloraseptic spray-add prilosec twice daily for acid reflux symptoms GERD-low spice, low fat diet-start prilosec 06/07/2017 Appointment: Marcela Oshea WPtel: [facility]5 [phone] (10 min) Simple 06/07/2017 Patient Education: [...] greater blood glucose control.Tick bite-continue doxycycline 05/17/2017 Appointment: Marcela Oshea WPtel: [address] [place] [address] (30 min) Complex 05/17/2017 Patient Education: Patient [...] Trauma Center. 05/04/2017 Appointment: Marcela Oshea WPtel: [address] [place] [address] (30 min) Complex 05/04/2017 Patient Education: Patient Medication Summary Completed 05/04/2017 Visit Plan: Hypertension - well controlled - continue with current medications, continue with no added salt diet. Pt has been encouraged to exercise daily.The pt has been advised to call the office if there are any acute concerns about change in blood pressure readings at home.Cough-resolved 03/15/2017 Appointment: Marcela Oshea WPtel: [address] [place] [address] (15 min) Moderate 03/15/2017 Patient Education: Patient Medication Summary Completed 03/15/2017 Appointment: Marcela Oshea WPtel: [address] [place] [address] (30 min) Complex 03/12/2017 Visit Plan: Feng [...] if needed as discussed 02/16/2017 Appointment: Marcela Osheatel: [phone] [phone] (15 min) Moderate 02/16/2017 Patient [...] controlled. 02/12/2017 Appointment: Marcela Oshea WPtel: [phone] [phone] (30 min) Complex 02/12/2017 Patient Education: Patient Medication Summary Completed 02/12/2017 Appointment: Marcela Oshea WPtel: [phone] [phone] (30 min) Complex 02/06/2017 Visit [...] glucose readings are starting to become less controlled.Vdfwcelzg-wneeivhi-eofqeqct to monitor Generalized weakness-refer for PT-patient refuses today but will consider 02/05/2017 Appointment: Marcela Oshea WPtel: [facility]8 [phone] (30 min) Complex 02/05/2017 Patient Education: Patient Medication Summary Completed 02/05/2017 Appointment: Marcela Oshea WPtel: [phone] [phone] [place] (30 min) Complex 01/30/2017 Visit Plan: Acute confusion-uncontrolled diabetes-chronically noncompliant with treatment and stopped his insulin several months ago-r/o stroke vs DKA-Dr Ha in to evaluate patient-plan to admit for further work up and treatment- patient's called and she transported him to the hospital 01/29/2017 Appointment: Marcela Oshea WPtel: [phone] [phone] [place] (30 min) Complex 01/29/2017 Patient Education: Patient Medication Summary Completed 01/29/2017 Patient Education: Obesity Completed 01/29/2017 Visit Plan: Right foot pain-MRI shows foreign body-appt with Dr Grewal for evaluation on Sunday. 10/13/2016 Appointment: Marcela Oshea WPtel: [phone] [phone] [place] (15 min) Moderate 10/13/2016 Patient Education: Patient Medication Summary Completed 10/13/2016 Appointment: Marcela Oshea WPtel: [phone] [phone] [place] (30 min) Complex 10/12/2016 Visit Plan: Right foot rhvq-kalmaotk-znghs washer dropped on foot-xray negative but pain continues to increase-recommend MRI of foot for further evaluation- refer to wound care for lesions on right foot, patient has diabetes and history of osteomyelitis-culture obtained today-continue oral abx-follow up in the office on , sooner if needed 10/09/2016 Visit Plan: Right foot turo-kntvtowm-kadfb washer dropped on foot-xray negative but pain continues to increase-recommend MRI of foot for further evaluation- refer to wound care for lesions on right foot, patient has diabetes and history of osteomyelitis-culture obtained today-continue oral abx-follow up in the office on , sooner if needed 10/09/2016 Visit Plan: Right foot juau-dgxqbynv-acbae washer dropped on foot-xray negative but pain continues to increase-recommend MRI of foot for further evaluation- refer to wound care for lesions on right foot, patient has diabetes and history of osteomyelitis-culture obtained today-continue oral abx-follow up in the office on , sooner if needed 10/09/2016 Appointment: Marcela Oshea WPtel: [phone] (30 min) Complex 10/09/2016 Patient Education: Patient Medication Summary Completed 10/09/2016 Visit Plan: Cellulitis - continue with oral antibiotics as previously directed, return to clinic as previously directed, call for acute change in symptoms, worsening redness, warmth, discharge. 10/06/2016 Appointment: Marcela Oshea WPtel: [facility]8 [phone] (10 min) Simple 10/06/2016 Patient Education: Patient Medication Summary Completed 10/06/2016 Appointment: Marcela Oshea WPtel: [facility]6 [phone] (30 min) Complex 08/24/2016 Referral: Sun Glynn Referral Completed 07/21/2016 Visit Plan: Low back pain- history of spinal fusion-patient for xray lumbar spine- RX sent to [facility] and instructed on use-topical voltaren samples provided and instructed on use. Ok to use tylenol as needed as well. The patient is to call the office if the pain is worsening or does not improve. Pressure ulcer left 4th toe-refer to Dr Glynn for evaluation 07/18/2016 Appointment: Marcela Oshea WPtel: [facility]6 [phone] (30 min) Complex 07/18/2016 Patient Education: Patient Medication Summary Completed 07/18/2016 Patient Education: Obesity Completed 07/18/2016 Care Plan: Referral Order SNOMED-CT : [id number] Pending 07/18/2016 Visit Plan: Diabetes Mellitus - [...] control. 06/22/2016 Appointment: [phone] (30 min) Complex 06/22/2016 Patient Education: [...] to allow for greater blood glucose control.Elevated Hgb-check CBC today 05/23/2016 Appointment: [facility]el[phone] (30 min) Complex 05/23/2016 Patient Education: [...] of plan. 05/15/2016 Appointment: Dayo Marcela [facility]Ptel[phone] [place] (15 min) Moderate 05/15/2016 Patient Education: [...] Sun Glynn Referral Initiated Instructions Comment . Acute confusion-uncontrolled diabetes-chronically noncompliant with treatment and stopped his insulin several months ago-r/o stroke vs DKA-Dr Ha in to evaluate patient-plan to admit for further work up and treatment- patient's called and she transported him to the hospital START CHECKING BLOOD SUGARS . Diabetes Mellitus [...] readings are starting to become less controlled. Evejvhsti-axmdwjza-qgaubbzc to monitor Generalized weakness-refer for PT-patient refuses today but will consider continue oral antibiotic start using topical antibiotic ointment to scabbed areas and cover with dressing follow up , sooner if needed refer to wound care mri left foot due to increased pain -concern for fracture from injury . Right foot ilvf-kcuhdwew-iyojg washer dropped on foot-xray negative but pain [...] into [facility]. . Cellulitis right foot-cultured today in the office-home health to reapply wound vac--appt with wound care on to evaluate for debridement- STOP LISINOPRIL DUE TO COUGH -START LOSARTAN 25MG DAILY . Feng inhibitor induced cough-stop lisinopril-start losartan as directed-monitor symptoms and follow up in 2 weeks-monitor blood pressure at home and call with any questions or concerns. Patient verbalized understanding of plan. culture of right foot strep swab prilosec [...] GERD-low spice, low fat diet-start prilosec . Hypertension - well controlled - continue with current medications, continue with no added salt diet. Pt has been encouraged to exercise daily. The pt has been advised to call the office if there are any acute concerns about change in blood pressure readings at home. Cough-resolved continue oral antibiotic start using topical antibiotic ointment to scabbed areas and cover with dressing follow up , sooner if needed refer to wound care mri left foot due to increased pain -concern for fracture from injury . Right foot jsvz-wdvgymjo-oetpg washer dropped on foot-xray negative but pain [...] for fracture from injury . Right foot vjxl-meaqtxaa-bbkkf washer dropped on foot-xray negative but pain continues to increase-recommend MRI of foot for further evaluation-refer to wound care for lesions on right foot, patient has diabetes and history of osteomyelitis- culture obtained today-continue oral abx-follow up in the office on , sooner if needed INCREASE FLUIDS-RECOMMEND G2 GATORADE-CHECK LABS TODAY IF [...] worse. Patient verbalized understanding of plan. . 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 Low back pain- history of spinal [...] to allow for greater blood glucose control. TOUJEO 25 UNITS DAILY. NOTIFY CLINIC IF [...] with Dr Grewal for evaluation on Sunday. RECOMMEND PROBIOTICS TWICE DAILY FLU SWAB ROCEPHIN [...] resolve-start augmentin if needed as discussed . Fatigue, malaise, joint pains - pt [...] pt is to be considered contagious. . Cellulitis - continue with oral antibiotics as previously directed, return to clinic as previously directed, call for acute change in symptoms, worsening redness, warmth, discharge.
[2019-04-08] MEDS ORDERED: ATORVASTATIN 80 MG (LIPITOR) TABLET PO SCH (21:00)
[2019-04-08] MEDS: TICAGRELOR 90 MG TABLET (BRILINTA) PO SCH (21:31)
[2019-04-08] MEDS: CARVEDILOL 3.125 MG (COREG) TABLET PO SCH (21:31)
[2019-04-09 00:17] VITALS: BP 125/74
[2019-04-09] MEDS: NS IV 1000 ML 1,000 ML IV SCH ×2 (00:42→07:58)
[2019-04-09 04:34] VITALS: BP 131/80
[2019-04-09 05:35] LABS: BASOPHILS % (AUTO) 0 % (0-10); EOSINOPHILS # (AUTO) 0.1 10^3/uL (0.0-0.3); EOSINOPHILS % (AUTO) 1 % (0-10); HEMATOCRIT 39 % (40-54); HEMOGLOBIN 13.7 G/DL (13.3-17.7); LYMPHOCYTES # (AUTO) 2.5 X 10^3 (1.0-4.0); LYMPHOCYTES % (AUTO) 40 % (12-44); MEAN CORPUSCULAR HEMOGLOBIN 31 PG (25-34); MEAN CORPUSCULAR HGB CONC 35 G/DL (32-36); MEAN CORPUSCULAR VOLUME 87 FL (80-99); MONOCYTES # (AUTO) 0.6 X 10^3 (0.0-1.0); MONOCYTES % (AUTO) 9 % (0-12); NEUTROPHILS # (AUTO) 3.2 X 10^3 (1.8-7.8); NEUTROPHILS % (AUTO) 50 % (42-75); PLATELET COUNT 138 10^3/uL (130-400); RED CELL DISTRIBUTION WIDTH 13.7 % (10.0-14.5); WHITE BLOOD COUNT 6.4 10^3/uL (4.3-11.0)
[2019-04-09 05:58] LABS: ALANINE AMINOTRANSFERASE 32 U/L (0-55); ALBUMIN 3.4 GM/DL (3.2-4.5); ALKALINE PHOSPHATASE 83 U/L (40-136); BILIRUBIN,TOTAL 1.2 MG/DL (0.1-1.0); BUN/CREATININE RATIO 17; CALCIUM 8.4 MG/DL (8.5-10.1); CARBON DIOXIDE 22 MMOL/L (21-32); CHLORIDE 109 MMOL/L (98-107); CHOLESTEROL 157 MG/DL (< 200); CREATININE SERUM 1.12 MG/DL (0.60-1.30); GFR ESTIMATED > 60; GLUCOSE 129 MG/DL (70-105); HDL CHOLESTEROL 31 MG/DL (40-60); POTASSIUM 3.8 MMOL/L (3.6-5.0); SODIUM 140 MMOL/L (135-145); TRIGLYCERIDES 431 MG/DL (<150); VLDL CHOLESTEROL 86 MG/DL (5-40)
[2019-04-09] MEDS: TICAGRELOR 90 MG TABLET (BRILINTA) PO SCH (07:58)
[2019-04-09] MEDS: CARVEDILOL 3.125 MG (COREG) TABLET PO SCH (07:58)
--- NOTE | 2019-04-09 08:01 | Cardiology Progress Note ---
Subjective Date Seen by Provider: Apr 09, 2019 Time Seen by Provider: 07:58 Subjective/Events-last exam Patient is feeling better, still anxious, chest pain is slightly better Review of Systems General: No Chills, No Night Sweats, No Fatigue, No Malaise, No Appetite, No Other HEENT: No Head Aches, No Visual Changes, No Eye Pain, No Ear Pain, No Dysphasia, No Sinus Congestion, No Post Nasal Drip, No Sore Throat, No Other Pulmonary: No Dyspnea, No Cough, No Pleuritic Chest Pain, No Other Cardiovascular: Chest Pain; No: Palpitations, Orthopnea, Paroxysmal Noc. Dyspnea, Edema, Lt Headedness, Other Objective-Cardiology Exam Last Set of Vital Signs Vital Signs 04/09/19 04/09/19 04:34 07:00 Temp 97.4 Pulse 74 Resp 18 B/P (MAP) 131/80 (97) Pulse Ox 96 O2 Delivery Room Air Capillary Refill : Less Than 3 Seconds I&O Intake and Output 04/09/19 00:00 Intake Total 760 ml Balance 760 ml Intake Oral 760 ml # Voids 1 Daily Weight Change No No General: Alert, Oriented X3, Cooperative HEENT: Atraumatic, PERRLA Neck: Supple, No JVD, No Thyromegaly Lungs: Clear to Auscultation, Normal Air Movement Heart: Regular Rate, Normal S1, Normal S2, No Murmurs Abdomen: Normal Bowel Sounds, Soft, No Tenderness, No Hepatosplenomegaly, No Masses Extremities: No Clubbing, No Cyanosis, No Edema, Normal Pulses, No T enderness/Swelling Skin: No Rashes, No Breakdown, No Significant Lesion Neuro: Normal Gait, Normal Speech, Strength at 5/5 X4 Ext, Normal Tone, Sensation Intact Psych/Mental Status: Mental Status NL, Mood NL Results Lab Laboratory Tests 04/08/19 15:20 04/09/19 05:25 A/P-Cardiology Admission Diagnosis Unstable angina Coronary artery disease Hypertension Hyperlipidemia Assessment/Plan Unstable angina, recurrent chest pain, EKG did not show any acute changes, Cardec enzymes were negative, Start Imdur and monitor tolerance and response Coronary artery disease, history of myocardial infarction in May 2018, had, maintained on aspirin and Brilinta. Had another cardiac catheterization in December 2018 showed mild in-stent restenosis in the LAD with patent stent in the obtuse marginal branch severe distal right coronary artery stenosis treated with drug-eluting stent in the right coronary artery. I reviewed his catheter film and patient had patent stents with small vessel disease. Will evaluate response to grace Quigley for discharge from cardiology standpoint History of foot ulcer, recurrent infection, treated with antibiotic reporting full healing. History of cardiomyopathy with ejection fraction 45-50 percent, restart home m edication monitor tolerance and response. History of small pericardial effusion, I will reevaluate 2-D echocardiogram Hypertension, monitor blood pressure Hyperlipidemia, continue on statin and monitor lipids Depression, anxiety, managed by primary care physician. Grace for discharge from cardiology standpoint Clinical Quality Measures DVT/VTE Risk/Contraindication: Risk Factor Score Per Nursin RFS Level Per Nursing on Admit: 4+=Very High JONH MARIA MD Apr 09, 2019 08:01
[2019-04-09 08:10] VITALS: BP 125/77
--- NOTE | 2019-04-09 08:39 | Progress Note ---
Objective Exam Last Set of Vital Signs Vital Signs Date Time Temp Pulse Resp B/P (MAP) Pulse Ox O2 Delivery O2 Flow Rate FiO2 04/09/19 08:10 98.3 75 20 125/77 (93) 99 Room Air Capillary Refill : Less Than 3 Seconds I&O Intake and Output 04/09/19 00:00 Intake Total 760 ml Balance 760 ml Intake Oral 760 ml # Voids 1 Daily Weight Change No No General: Alert, Oriented X3, Cooperative HEENT: Atraumatic, PERRLA Neck: Supple, No JVD, No Thyromegaly Lungs: Clear to Auscultation, Normal Air Movement Heart: Regular Rate, Normal S1, Normal S2, No Murmurs Abdomen: Normal Bowel Sounds, Soft, No Tenderness, No Hepatosplenomegaly, No M asses Extremities: No Clubbing, No Cyanosis, No Edema, Normal Pulses, No Tenderness/Swelling Skin: No Rashes, No Breakdown, No Significant Lesion Neuro: Normal Gait, Normal Speech, Strength at 5/5 X4 Ext, Normal Tone, Sensation Intact Psych/Mental Status: Mental Status NL, Mood NL Results Lab Laboratory Tests 04/08/19 15:20: White Blood Count 7.5, Red Blood Count 5.47, Hemoglobin 16.5, Hematocrit 46, Mean Corpuscular Volume 85, Mean Corpuscular Hemoglobin 30, Mean Corpuscular Hemoglobin Concent 36, Red Cell Distribution Width 13.9, Platelet Count 190, Mean Platelet Volume 11.0H, Neutrophils (%) (Auto) 61, Lymphocytes (%) (Auto) 29, Monocytes (%) (Auto) 10, Eosinophils (%) (Auto) 1, Basophils (%) (Auto) 0, Neutrophils # (Auto) 4.8, Lymphocytes # (Auto) 2.3, Monocytes # (Auto) 0.8, Eosinophils # (Auto) 0.0, Basophils # (Auto) 0.0, Sodium Level 139, Potassium Level 4.7, Chloride Level 103, Carbon Dioxide Level 26, Anion Gap 10, Blood Urea Nitrogen 16, Creatinine 1.34H, Estimat Glomerular Filtration Rate 55, BUN/Creatinine Ratio 12, Glucose Level 132H, Calcium Level 10.3H, Corrected Calcium 10.0, Magnesium Level 1.7L, Total Bilirubin 2.1H, Aspartate Amino Transf (AST/SGOT) 36H, Alanine Aminotransferase (ALT/SGPT) 44, Alkaline Phosphatase 101, Myoglobin 121.9H, Troponin I 0.035H, Total Protein 8.1, Albumin 4.4, Lipase 82H 04/08/19 15:35: Prothrombin Time 12.7, INR Comment 0.9, Activated Partial Thromboplast Time 31 04/08/19 21:25: Troponin I < 0.028 04/08/19 23:00: Glucometer 138H 04/09/19 05:25: White Blood Count 6.4, Red Blood Count 4.49, Hemoglobin 13.7, Hematocrit 39L, Mean Corpuscular Volume 87, Mean Corpuscular Hemoglobin 31, Mean Corpuscular Hemoglobin Concent 35, Red Cell Distribution Width 13.7, Platelet Count 138, Mean Platelet Volume 11.0H, Neutrophils (%) (Auto) 50, Lymphocytes (%) (Auto) 40, Monocytes (%) (Auto) 9, Eosinophils (%) (Auto) 1, Basophils (%) (Auto) 0, Neutrophils # (Auto) 3.2, Lymphocytes # (Auto) 2.5, Monocytes # (Auto) 0.6, Eosinophils # (Auto) 0.1, Basophils # (Auto) 0.0, Sodium Level 140, Potassium Level 3.8, Chloride Level 109H, Carbon Dioxide Level 22, Anion Gap 9, Blood Urea Nitrogen 19H, Creatinine 1.12, Estimat Glomerular Filtration Rate > 60, BUN/Creatinine Ratio 17, Glucose Level 129H, Calcium Level 8.4L, Corrected Calcium 8.9, Total Bilirubin 1.2H, Aspartate Amino Transf (AST/SGOT) 26, Alanine Aminotransferase (ALT/SGPT) 32, Alkaline Phosphatase 83, Troponin I < 0.028, Total Protein 6.0L, Albumin 3.4, Triglycerides Level 431H, Cholesterol Level 157, LDL Cholesterol Direct 62, VLDL Cholesterol 86H, HDL Cholesterol 31L Clinical Quality Measures DVT/VTE Risk/Contraindication: Risk Factor Score Per Nursin RFS Level Per Nursing on Admit: 4+=Very High Other: SEE INTERVENTIONS ROSA MARIA PRADO MD Apr 09, 2019 08:39
[2019-04-09] MEDS ORDERED: PANTOPRAZOLE 40 MG (PROTONIX) TAB PO SCH (09:00)
[2019-04-09] MEDS ORDERED: ISOSORBIDE MONONITRATE 30 MG (IMDUR) TAB PO SCH (09:00)
[2019-04-09] MEDS ORDERED: VALSARTAN 80 MG (DIOVAN) TAB PO SCH (09:00)
[2019-04-09] MEDS ORDERED: MULTIVIT W/MINERALS TAB (THERAGRAN M) PO SCH (09:01)
[2019-04-09] MEDS: inSUlin ASPART (NovoLOG) 1 UNIT/0.01 ML (CHARGE PER UNIT) SC SCH ×4 (09:09→16:32)
--- NOTE | 2019-04-09 09:32 | Discharge Summary ---
Diagnosis/Chief Complaint Date of Admission Apr 08, 2019 at 17:00 Date of Discharge Discharge Summary Discharge Physical Examination Allergies: Coded Allergies: linezolid (Verified Allergy, Unknown, 05/28/18) Vitals & I&Os Vital Signs Date Time Temp Pulse Resp B/P (MAP) Pulse Ox O2 Delivery O2 Flow Rate FiO2 04/09/19 08:10 98.3 75 20 125/77 (93) 99 Room Air General Appearance: Alert, Oriented X3, Cooperative HEENT: Atraumatic, PERRLA Respiratory: Clear to Auscultation, Normal Air Movement Cardiovascular: Regular Rate, Normal S1, Normal S2, No Murmurs Abdominal: Normal Bowel Sounds, Soft, No Tenderness, No Hepatosplenomegaly, No Masses Extremities: No Clubbing, No Cyanosis, No Edema, Normal Pulses, No Tenderness/Swelling Skin: No Rashes, No Breakdown, No Significant Lesion Neuro: Normal Gait, Normal Speech, Strength at 5/5 X4 Ext, Normal Tone, Sensation Intact Psych/Mental Status: Mental Status NL, Mood NL Hospital Course Pending Labs Laboratory Tests 04/09/19 05:25: White Blood Count 6.4, Red Blood Count 4.49, Hemoglobin 13.7, Hematocrit 39, Mean Corpuscular Volume 87, Mean Corpuscular Hemoglobin 31, Mean Corpuscular Hemoglobin Concent 35, Red Cell Distribution Width 13.7, Platelet Count 138, Mean Platelet Volume 11.0, Neutrophils (%) (Auto) 50, Lymphocytes (%) (Auto) 40, Monocytes (%) (Auto) 9, Eosinophils (%) (Auto) 1, Basophils (%) (Auto) 0, Neutrophils # (Auto) 3.2, Lymphocytes # (Auto) 2.5, Monocytes # (Auto) 0.6, Eosinophils # (Auto) 0.1, Basophils # (Auto) 0.0, Sodium Level 140, Potassium Level 3.8, Chloride Level 109, Carbon Dioxide Level 22, Anion Gap 9, Blood Urea Nitrogen 19, Creatinine 1.12, Estimat Glomerular Filtration Rate > 60, BUN/Creatinine Ratio 17, Glucose Level 129, Calcium Level 8.4, Corrected Calcium 8.9, Total Bilirubin 1.2, Aspartate Amino Transf (AST/SGOT) 26, Alanine Aminotransferase (ALT/SGPT) 32, Alkaline Phosphatase 83, Troponin I < 0.028, Total Protein 6.0, Albumin 3.4, Triglycerides Level 431, Cholesterol Level 157, LDL Cholesterol Direct 62, VLDL Cholesterol 86, HDL Cholesterol 31 Discharge Instructions to patient/family Please see electronic discharge instructions given to patient. Discharge Medications Reviewed and agree with Discharge Medication list on patient's Discharge Instruction sheet Clinical Quality Measures DVT/VTE Risk/Contraindication: Risk Factor Score Per Nursin RFS Level Per Nursing on Admit: 4+=Very High Other: SEE INTERVENTIONS ROSA MARIA PRADO MD Apr 09, 2019 09:32
[2019-04-09] MEDS ORDERED: ISOS30TA3 PO ×2 (09:35)
[2019-04-09] MEDS ORDERED: CARV3.122 PO ×2 (09:35)
--- NOTE | 2019-04-09 09:37 | Discharge Inst-Complex ---
PDI Med Rec & Follow Up Appt. New Medications: Carvedilol (Carvedilol) 3.125 Mg Tablet 3.125 MG PO BID, #60 TAB 6 Refills Isosorbide Mononitrate (Isosorbide Mononitrate ER) 30 Mg Tab.er.24h 30 MG PO DAILY, #30 TAB 6 Refills Continued Medications: Acetaminophen (Tylenol Extra Strength) 500 Mg Tablet 1000 MG PO HS, TAB TAKES 2 (500MG) TABLETS Aspirin (Aspirin EC) 81 Mg Tablet.dr 81 MG PO DAILY, #100 TAB 3 Refills Atorvastatin Calcium (Lipitor) 80 Mg Tablet 80 MG PO DAILY, TAB Clonazepam (Clonazepam) 1 Mg Tablet 2 MG PO HS, TAB TAKES 2 (1 MG) TABLETS Insulin Aspart (Novolog Flexpen) 300 Units/3 Ml Solution 10 UNITS SC TIDAC, EA Insulin Degludec (Tresiba Flextouch U-200) 200 Unit/1 Ml Insuln.pen 50 UNITS SC DAILY, EA Multivitamin (Daily Value) 1 Each Tablet 1 TAB PO DAILY, TAB [Nitroglycerin] () 0.4 MG BTL 0 MG SL UD PRN for CHEST PAIN, #10 TAB Pantoprazole Sodium (Pantoprazole Sodium) 40 Mg Tablet.dr 40 MG PO DAILY, TAB Pregabalin (Lyrica) 50 Mg Capsule 50 MG PO HS, CAP Ticagrelor (Brilinta) 90 Mg Tablet 90 MG PO BID, #30 TAB 6 Refills Valsartan (Valsartan) 80 Mg Tablet 40 MG PO DAILY, #30 TAB 3 Refills TAKES 1/2 (80MG) TABLET -take bp prior to medication and hold if blood pressure is less than 110 on top number Discontinued Medications: Carvedilol (Carvedilol) 6.25 Mg Tablet 6.25 MG PO BID, #30 TAB 6 Refills Prescription: Transmitted to Pharmacy Activity, Diet and PDI Resume Normal Activity: Yes Discharge Diet: ADA Diet Driving Instructions: No Driving for 24 Hours Symptoms to Reoprt to : Appetite Changes, Fever Over 101 Degrees F, Pain/ Pressure in Chest, Shortness of Breath For Problems or Questions: Contact Your Physician ROSA MARIA PRADO MD Apr 09, 2019 09:37
--- NOTE | 2019-04-09 10:32 | NUR ---
PATIENT HAD PREVIOULSY REFUSED INSULIN THEN ASK PCCT IF THIS RN COULD BRING HIM HIS INSULIN BECAUSE HE FINALLY ATE.
[2019-04-09 12:00] VITALS: BP 131/71
[2019-04-09] MEDS ORDERED: NS IV 1000 ML 1,000 ML IV SCH (13:15)
[2019-04-09 16:32] VITALS: BP 131/71
[2019-04-09] MEDS ORDERED: PREGABALIN 50 MG (LYRICA) CAP PO SCH (21:00)
[2019-04-09] MEDS ORDERED: clonazePAM 1 MG (KlonoPIN) TAB PO SCH (21:00)
--- NOTE | 2019-04-11 12:46 | Physician Query Clarification ---
PQ-Intro New Diagnosis Admission/Discharge Admission Date: Apr 08, 2019 at 17:00 Discharge Date: Apr 09, 2019 at 16:47 The medical record reflects the following clinical scenario: History/Risk Factors: Coronary artery disease Status post coronary artery stents Clinical Findings:Recent cardiac chat in Dec 2018 showed mild in-stent restenosis in the LAD with patent stent in the obtuse marginal branch severe distal right coronary artery stenosis treated with drug-eluting stent in the right coronary artery. Your assessment per progress notes was that you reviewed his cath film and patient had patent stents with small vessel disease. Treatment: Nitroglycerin, Brilinta, Imdur Question: What condition best reflects the above clinical scenario? Please document a response in the Progress Noter or Discharge Summary. 1. In-stent restenosis causing unstable angina. 2. Atherosclerosis of [place] coronary artery with unstable angina pectoris. 3. Both in-instent restenosis and atherosclerosis of [place] coronary artery with unstable angina pectoris. 4. Other, with explanation of the clinical findings. 5. Clinically undetermined, no explanation for the clinical findings. PHYSICIAN RESPONSE What condition reflects above: 2 Explanation of clincal finding Unstable angina with small vessels disease, coronary artery disease Please remember a lack of response to the above will prompt a phone page by CDI/Coding staff. In responding to this query, please exercise your independent professional judgment. The purpose of this communication is to more accurately reflect the complexity of your patients condition. The fact that a question is asked does not imply that any particular answer is desired or expected. Thank you for your timely response to this clarification. Requestors name: Domonique Rivera [facility] Phone # ext [phone] or [phone] THIS PHYSICIAN QUERY FORM IS A PERMANENT PART OF THE MEDICAL RECORD DOMONIQUE RIVERA Apr 11, 2019 12:46 JONH MARIA MD Apr 11, 2019 17:46
== END 2019-04-09 16:47 | disposition home or self-care (01) | DRG 303 ==
LOC: EDUNIT# 15:25 → ER 15:27 → 4TH 17:00 → UNDOADMIN 17:00 → 4TH 04-09 13:56
PROVIDERS: ADMIT Family Medicine; ATTEND Family Medicine
DX: I25.110 Atherosclerotic heart disease of native coronary artery with unstable angina pectoris (principal); I95.0 Idiopathic hypotension; I42.9 Cardiomyopathy, unspecified; I25.2 Old myocardial infarction; I10 Essential (primary) hypertension; E78.00 Pure hypercholesterolemia, unspecified; E11.40 Type 2 diabetes mellitus with diabetic neuropathy, unspecified; R63.0 Anorexia; F41.9 Anxiety disorder, unspecified; F32.9 Major depressive disorder, single episode, unspecified; M54.9 Dorsalgia, unspecified; M19.91 Primary osteoarthritis, unspecified site; Z95.5 Presence of coronary angioplasty implant and graft; Z79.4 Long term (current) use of insulin; Z79.02 Long term (current) use of antithrombotics/antiplatelets; Z98.1 Arthrodesis status; Z89.421 Acquired absence of other right toe(s); Z89.422 Acquired absence of other left toe(s); Z86.73 Personal history of transient ischemic attack (TIA), and cerebral infarction without residual deficits
CPT/HCPCS: 36415; 71045; 80053; 80061; 82962; 83690; 83735; 83874; 84484; 85025; 85027; 85610; 85730; 93041; 93306; 96360; 96372

== ENCOUNTER → 2019-04-08 | Day surgery (SDC) | payer OTHER ==
[~2019-04-08] MED LIST changes: +ASPIRIN E.C. 81 MG (ECOTRIN) TAB PO SCH; +CARV3.122 PO; +CATHETER FLUSH 10 ML SYR IV PRN; +ISOS30TA3 PO; +NITROGLYCERIN 0.4 MG SL TABS BTL 25'S SL PRN; +NS IV 1000 ML 1,000 ML IV SCH; +ONDANSETRON 4 MG/2 ML (SDV) Z0FRAN IV PRN; +inSUlin ASPART (NovoLOG) 1 UNIT/0.01 ML (CHARGE PER UNIT) SC SCH
--- NOTE | 2019-04-08 15:10 | NUR ---
PATIENT PRESENTED FROM DR. PRADO'S OFFICE FOR "FLUIDS AND LABS." CALLED OVER TO REGISTRATION AND ORDER FAXED. IT WAS NOTED ON THE ORDERS THAT HE NEEDED AND EKG AND TROPONIN. WHILE STARTING A #20 IC IN THE PATIENT'S LEFT AC, PATIENT WAS NOTED TO BE SHORT OF BREATH AND STATING HE HAD CHEST TIGHTNESS AND PRESSURE. CBC, CMP, AND TROPONIN DRAWN AND THE HEP-LOCK WAS FLUSHED AND THE PATIENT WAS TAKEN TO ER PER WHEELCHAIR FOR FURTHER EVALUATION.
[2019-04-08 15:30] LABS: HEMOGLOBIN 16.5 G/DL (13.3-17.7); RED CELL DISTRIBUTION WIDTH 13.9 % (10.0-14.5); WHITE BLOOD COUNT 7.5 10^3/uL (4.3-11.0)
[2019-04-08 16:15] LABS: ALBUMIN 4.4 GM/DL (3.2-4.5); BILIRUBIN,TOTAL 2.1 MG/DL (0.1-1.0); CALCIUM 10.3 MG/DL (8.5-10.1); CREATININE SERUM 1.34 MG/DL (0.60-1.30); POTASSIUM 4.7 MMOL/L (3.6-5.0); TOTAL PROTEIN 8.1 GM/DL (6.4-8.2)
== END | disposition short-term general hospital (02) ==
LOC: SDC 15:13
PROVIDERS: ATTEND Nurse Practitioner Family
DX: E86.0 Dehydration (principal); R53.83 Other fatigue; R53.81 Other malaise; R00.2 Palpitations; R07.9 Chest pain, unspecified
CPT/HCPCS: 36415; 80053; 84484; 85027

== ENCOUNTER 2019-04-24 13:39 | Inpatient (IN) | payer OTHER ==
[2019-04-24] VITALS (10 sets, daily range): BP systolic 86–120; BP diastolic 67–80
[~2019-04-24] VITALS: Ht 188 cm; Wt 112.2 kg
[~2019-04-24 13:39] MED LIST changes: +CARV3.122 PO; +ISOS30TA3 PO
--- OUTSIDE RECORDS SUMMARY | 2019-04-24 13:44 | XMS REPORT | Clinical Summary ---
Author Author [facility] Organization [facility] Address Unknown Phone Unavailable Care Team Providers Care Conductor Road Freight Name Role Phone Gordo Ferguson MD Unavailable Gildardo Craig MD PCP Georgina Roberts RN Unavailable Unavailable Bren Howard RN Unavailable Unavailable Rohini Muniz DO Unavailable Unavailable Source Comments Some departments are not documenting in the electronic medical record. If you d o not see the information that you expected, contact Release of Information in [facility] Information Management department at [phone] for further assistan ce in locating additional records.[facility] Allergies No Known Allergies Medications [...] hernia 08/13/2013 Abdominal pain 08/11/2013 Immunizations Name Administration Dates Next Due Flu Vaccine Trivalent=>3 08/31/2013 Yo (Preservative Free) Social History Date Tobacco Use Types Packs/Day Years Used Never Smoker Smokeless Tobacco: Never Used Drinks/Week oz/Week Comments Alcohol Use No Sex Assigned at Date Recorded Not on file Industry Job Start Date Occupation Not on file Not on file Not on file Travel End Travel History Travel Start No recent travel history available. Last Filed Vital Signs Reading Time Taken Comments Vital Sign 146/79 11/17/2013 3:22 PM REGIONAL DRIVER left arm only, right arm PICC Blood Pressure 100 11/17/2013 3:22 PM REGIONAL DRIVER Pulse 36.2 C (97.1 F) 11/17/2013 3:22 PM REGIONAL DRIVER Temperature 20 11/17/2013 3:22 PM REGIONAL DRIVER Respiratory Rate 99% 09/20/2013 9:44 PM REGIONAL DRIVER Oxygen Saturation - - Inhaled Oxygen Concentration 116.1 kg (256 lb) 11/17/2013 3:22 PM REGIONAL DRIVER Weight 188 cm (6' 2") 11/17/2013 3:22 PM REGIONAL DRIVER Height 32.87 11/17/2013 3:22 PM REGIONAL DRIVER Body Mass Index Plan of Treatment Health Maintenance Due Date Last Done Comments HEPATITIS C SCREENING 1962 PHYSICAL (COMPREHENSIVE) 1969 EXAM HIV SCREENING 1977 DTAP/TDAP VACCINES (1 - 1980 Tdap) COLORECTAL CANCER 2012 SCREENING SHINGLES RECOMBINANT 2012 VACCINE (1 of 2) INFLUENZA VACCINE 08/05/2019 08/31/2013 Results Not on filefrom Last 3 Months Advance Directives Patient Traffic Maintenance Supervisor Explanation Type Date Recorded Advance 08/31/2013 11:34 AM Directive/DPOA Date Inactivated Comments Code Status Date Activated 09/08/2013 6:52 PM Full Code 08/30/2013 11:52 PM Provider has discussed Code Status Yes w/Patient or Family? 08/16/2013 7:47 PM Full Code 08/13/2013 5:24 PM Provider has discussed Code Status Yes w/Patient or Family?
--- OUTSIDE RECORDS SUMMARY | 2019-04-24 13:45 | XMS REPORT | Encounter Summary ---
Author Author [facility] Organization [facility] Address Unknown Phone Unavailable Care Team Providers Care Incident Handler Name Role Phone Gordo Ferguson MD Unavailable Gildardo Craig MD PCP Georgina Roberts RN Unavailable Unavailable Bren Hwoard RN Unavailable Unavailable Reason for Visit * Reason Comments Post-hospital Follow Up Encounter Details Care Team Description Date Type Department Gordo Ferguson MD [address] [place] [address] Visit for wound check (Primary Dx) 10/17/2013 Office Visit [facility] Physicians - Surgery [address] [place] [address] Social History Date Tobacco Use Types Packs/Day Years Used Never Smoker Smokeless Tobacco: Never Used Drinks/Week oz/Week Comments Alcohol Use No Sex Assigned at Date Recorded Not on file Industry Job Start Date Occupation Not on file Not on file Not on file Travel End Travel History Travel Start No recent travel history available. documented as of this encounter Last Filed Vital Signs Reading Time Taken Comments Vital Sign 146/82 10/17/2013 10:18 AM MANUFACTURING ASSEMBLER Blood Pressure 86 10/17/2013 10:18 AM MANUFACTURING ASSEMBLER Pulse 36.1 C (97 F) 10/17/2013 10:18 AM MANUFACTURING ASSEMBLER Temperature 16 10/17/2013 10:18 AM MANUFACTURING ASSEMBLER Respiratory Rate - - Oxygen Saturation - - Inhaled Oxygen Concentration 111.7 kg (246 lb 3.2 oz) 10/17/2013 10:18 AM MANUFACTURING ASSEMBLER Weight 188 cm (6' 2") 10/17/2013 10:18 AM MANUFACTURING ASSEMBLER Height 31.61 10/17/2013 10:18 AM MANUFACTURING ASSEMBLER Body Mass Index documented in this encounter Progress Notes * Gordo Ferguson MD - 10/17/2013 10:39 AM MANUFACTURING ASSEMBLER Here for wound check. Looks so much better today. Almost fully healed. Will recheck in November. FACTURING ASSEMBLER documented in this encounter Plan of Treatment Not on filedocumented as of this encounter Visit Diagnoses Diagnosis Visit for wound check - Primary Encounter for other specified aftercare documented in this encounter
--- OUTSIDE RECORDS SUMMARY | 2019-04-24 13:45 | XMS REPORT | Encounter Summary ---
Author Author [facility] Organization [facility] Address Unknown Phone Unavailable Care Team Providers Care Sound Engineer Name Role Phone Gordo Ferguson MD Unavailable Gildardo Craig MD PCP Georgina Roberts RN Unavailable Unavailable Bren Howard RN Unavailable Unavailable Reason for Visit * Reason Comments Wound Check Encounter Details Care Team Description Date Type Department Gordo Ferguson MD [address] [place] [address] Visit for wound check (Primary Dx) 11/14/2013 Office Visit [facility] Physicians - Surgery [address] [place] [address] Social History Date Tobacco Use Types [...] Signs Reading Time Taken Comments Vital Sign 153/91 11/14/2013 10:57 AM SHAPER SETTER Blood Pressure 113 11/14/2013 10:57 AM SHAPER SETTER Pulse 36.6 C (97.9 F) 11/14/2013 10:57 AM SHAPER SETTER Temperature 16 11/14/2013 10:57 AM SHAPER SETTER Respiratory Rate - - Oxygen Saturation - - Inhaled Oxygen Concentration 116.1 kg (256 lb) 11/14/2013 10:57 AM SHAPER SETTER Weight 188 cm (6' 2") 11/14/2013 10:57 AM SHAPER SETTER Height 32.87 11/14/2013 10:57 AM SHAPER SETTER Body Mass Index documented in this encounter Progress Notes * Gordo Ferguson MD - 11/14/2013 12:42 PM SHAPER SETTER Mr. Bennett RTC today for wound check. I reviewed his outside records and there is no evidence of any abd wall infectio n. He did have an infected port that was removed and now has a PICC line. He has b een getting Vanco and is now likely having problems with it. His diabetic foot looks abnormal. I am sending him to vascular surgery on Sunday to work him up. The Vanco should be stopped and see if his constitutional symptoms improve. RTC PRN ER SETTER documented in this encounter Plan of Treatment Not on filedocumented as of this encounter Visit Diagnoses Diagnosis Visit for wound check - Primary Encounter for other specified aftercare documented in this encounter
--- OUTSIDE RECORDS SUMMARY | 2019-04-24 13:45 | XMS REPORT | Encounter Summary ---
Author Author [facility] Organization [facility] Address Unknown Phone Unavailable Care Team Providers Care Drug Abuse Program Coordinator Name Role Phone Gordo Ferguson MD Unavailable Gildardo Craig MD PCP Georgina Roberts RN Unavailable Unavailable Bren Howard RN Unavailable Unavailable Reason for Visit * Reason Comments Wound Check Encounter Details Care Team Description Date Type Department Gordo Ferguson MD [address] [place] [address] Follow up (Primary Dx) 09/12/2013 Office Visit [facility] Physicians - Surgery [address] [place] [address] Social History Date Tobacco Use Types [...] Signs Reading Time Taken Comments Vital Sign 129/77 09/12/2013 12:02 PM EDGE PLUGGER Blood Pressure 90 09/12/2013 12:02 PM EDGE PLUGGER Pulse 36.3 C (97.4 F) 09/12/2013 12:02 PM EDGE PLUGGER Temperature 18 09/12/2013 12:02 PM EDGE PLUGGER Respiratory Rate - - Oxygen Saturation - - Inhaled Oxygen Concentration 110.1 kg (242 lb 12.8 oz) 09/12/2013 12:02 PM EDGE PLUGGER Weight 188 cm (6' 2") 09/12/2013 12:02 PM EDGE PLUGGER Height 31.17 09/12/2013 12:02 PM EDGE PLUGGER Body Mass Index documented in this encounter Progress Notes * Gordo Ferguson MD - 09/12/2013 12:21 PM EDGE PLUGGER Subjective: Jarett Bennett is a 53 y.o. male. History of Present Illness Mr. Bennett RTC today for a wound check follow up. He was DC'd home a week ago f rom the open drainage of a seroma and placement of a wound vacc. Review of Systems Constitutional: Positive for fever, chills, activity change and appetite change. Negative for diaphoresis, fatigue and unexpected weight change. HENT: Negative for hearing loss, ear pain, nosebleeds, congestion, facial swelli ng, rhinorrhea, sneezing, drooling, mouth sores, neck pain, neck stiffness, dent al problem, postnasal drip, sinus pressure, tinnitus and ear discharge. Eyes: Negative for photophobia, pain, discharge, redness, itching and visual dis turbance. Respiratory: Negative for apnea, cough, choking, chest tightness, shortness of b reath, wheezing and stridor. Cardiovascular: Negative for chest pain, palpitations and leg swelling. Gastrointestinal: Negative for nausea, vomiting, abdominal pain, diarrhea, const ipation, blood in stool, abdominal distention, anal bleeding and rectal pain. Genitourinary: Negative for dysuria, urgency, frequency, hematuria, flank pain, decreased urine volume, discharge, penile swelling, scrotal swelling, enuresis, difficulty urinating, genital sores, penile pain and testicular pain. Musculoskeletal: Negative for myalgias, back pain, joint swelling, arthralgias a nd gait problem. Skin: Negative for color change, pallor, rash and wound. Neurological: Negative for dizziness, tremors, seizures, syncope, facial asymmet ry, speech difficulty, weakness, light-headedness, numbness and headaches. Hematological: Negative for adenopathy. Does not bruise/bleed easily. Psychiatric/Behavioral: Negative for suicidal ideas, hallucinations, behavioral problems, confusion, disturbed wake/sleep cycle, dysphoric mood, decreased nell ntration and agitation. The patient is not nervous/anxious and is not hyperactiv e. Objective: oxyCODone (ROXICODONE) 5 mg tablet Take 1-2 Tabs by mouth every 4 hours as n eeded for Pain HYDROmorphone (DILAUDID) 2 mg tablet Take 1 Tab by mouth every 3 hours as ne eded lidocaine (LIDODERM) 5 % topical patch Apply to affected area for 12 hours, then remove for 12 hours. senna/docusate (SENOKOT-S) 8.6/50 mg tablet Take 1 Tab by mouth twice daily. diazepam (VALIUM) 5 mg tablet Take 0.5-1 Tabs by mouth every 6 hours as need ed. clonazePAM (KLONOPIN) 1 mg tablet Take 1 mg by mouth at bedtime daily. Filed Vitals: 09/12/13 1202 BP: 129/77 Pulse: 90 Temp: 36.3 C (97.4 F) TempSrc: Oral Resp: 18 Height: 188 cm (74") Weight: 110.133 kg (242 lb 12.8 oz) Body mass index is 31.17 kg/(m^2). Physical Exam The wound vacc was taken down and the underlying wound is looking great. There is good fill and healthy granulation tissue. There is only a small amount of fi brinous exudate at the 1 o'clock on the upper portion of the wound. No evidence of infection. Assessment and Plan: Good wound healing, no infection (fluid from wound cx are negative). Continue wound vac and RTC in 2 weeks PLUGGER documented in this encounter Plan of Treatment Not on filedocumented as of this encounter Visit Diagnoses Diagnosis Follow up - Primary Unspecified follow-up examination documented in this encounter
--- OUTSIDE RECORDS SUMMARY | 2019-04-24 13:45 | XMS REPORT | Encounter Summary ---
Author Author [facility] Organization [facility] Address Unknown Phone Unavailable Care Team Providers Care Assembler Rubber Footwear Name Role Phone Gordo Ferguson MD Unavailable Gildardo Craig MD PCP Georgina Roberts RN Unavailable Unavailable Bren Howard RN Unavailable Unavailable Reason for Visit * Reason Comments Post-hospital Follow Up Encounter Details Care Team Description Date Type Department Gordo Ferguson MD [address] [place] [address] Rash (Primary Dx) 09/26/2013 Office Visit [facility] Physicians - Surgery [address] [place] [address] Social History Date Tobacco Use [...] Signs Reading Time Taken Comments Vital Sign 132/89 09/26/2013 10:39 AM DIRECTOR OCCUPATIONAL Blood Pressure 89 09/26/2013 10:39 AM DIRECTOR OCCUPATIONAL Pulse 35.6 C (96.1 F) 09/26/2013 10:39 AM DIRECTOR OCCUPATIONAL Temperature 16 09/26/2013 10:39 AM DIRECTOR OCCUPATIONAL Respiratory Rate - - Oxygen Saturation - - Inhaled Oxygen Concentration 115.7 kg (255 lb) 09/26/2013 10:39 AM DIRECTOR OCCUPATIONAL Weight 188 cm (6' 2") 09/26/2013 10:39 AM DIRECTOR OCCUPATIONAL Height 32.74 09/26/2013 10:39 AM DIRECTOR OCCUPATIONAL Body Mass Index documented in this encounter Progress Notes * Gordo Ferguson MD - 09/26/2013 11:35 AM DIRECTOR OCCUPATIONAL Subjective: Jarett Bennett returns to clinic today for post op visit from his seroma drainag e. Patient does not have new complaints. he is tolerating his diet without difficulty. [place] el function is normal. The patient is not having any pain.. Objective: BP 132/89 | Pulse 89 | Temp 35.6 C (96.1 F) (Oral) | Resp 16 | Ht 188 cm (74 ") | Wt 115.667 kg (255 lb) | BMI 32.74 kg/m2 General: alert, well-developed, well-nourished and cooperative Incision: healing well, no drainage, no erythema, no hernia, no seroma, no swelling, no dehiscence, incision well approximated Extremities: N/A Assessment: Doing well postoperatively. Plan: 1. Continue any current medications. 2. Wound care discussed. 3. start iodofor dressings 4. Weight restriction for 1 more week. 5. RTC in 2 weeks CTOR OCCUPATIONAL documented in this encounter Plan of Treatment Not on filedocumented as of this encounter Visit Diagnoses Diagnosis Rash - Primary Rash and other nonspecific skin eruption documented in this encounter
--- OUTSIDE RECORDS SUMMARY | 2019-04-24 13:45 | XMS REPORT | Encounter Summary ---
Author Author [facility] Organization [facility] Address Unknown Phone Unavailable Care Team Providers Care Special Education Math Teacher Name Role Phone Gordo Ferguson MD Unavailable Gildardo Craig MD PCP Georgina Roberts RN Unavailable Unavailable Bren Howard RN Unavailable Unavailable Rohini Muniz DO Unavailable Unavailable Reason for Visit * Reason Comments Foot Pain Encounter Details Care Team Description Date Type Department Rohini Muniz DO FORWARDING ADDRESS UNKNOWN PVD (peripheral vascular disease) (Primary Dx); Diabetic foot 11/17/2013 Office Visit [facility] Physicians - Surgery [address] [place] [address] Social History Date Tobacco Use [...] Comments Vital Sign 146/79 11/17/2013 3:22 PM CUT OFF SAW TENDER METAL left arm only, right arm PICC Blood Pressure 100 11/17/2013 3:22 PM CUT OFF SAW TENDER METAL Pulse 36.2 C (97.1 F) 11/17/2013 3:22 PM CUT OFF SAW TENDER METAL Temperature 20 11/17/2013 3:22 PM CUT OFF SAW TENDER METAL Respiratory Rate - - Oxygen Saturation - - Inhaled Oxygen Concentration 116.1 kg (256 lb) 11/17/2013 3:22 PM CUT OFF SAW TENDER METAL Weight 188 cm (6' 2") 11/17/2013 3:22 PM CUT OFF SAW TENDER METAL Height 32.87 11/17/2013 3:22 PM CUT OFF SAW TENDER METAL Body Mass Index documented in this encounter Progress Notes * Rohini Muniz, DO - 11/17/2013 3:27 PM CUT OFF SAW TENDER METAL Subjective: Jarett Bennett is a 53 y.o. male. History of Present Illness Mr. Bennett is a 53 diabetic with history of diabetic foot infections and toe amp utations bilaterally. He states that beginning of October he began to develop a nd infected toe with what sounds like osteomyelitis. This ultimately ended up wi th amputation of his 2nd and 3rd toes. He has healed his amputation sites but st ates that ever since surgery he has had worsening pain in the anterior aspect of of his foot and amputation site. He describes the pain as a burning shock like pain in his toes. In addition he has noticed some swelling of his 1st toe and th e amputation site which is concerning. There is concern that he may have underly ing vascular disease. Review of Systems Constitutional: Negative for fever, chills, diaphoresis, activity change, appeti te change, fatigue and unexpected weight change. HENT: Negative for hearing loss, ear pain, nosebleeds, congestion, sore throat, facial swelling, rhinorrhea, sneezing, drooling, mouth sores, trouble swallowing , neck pain, neck stiffness, dental problem, voice change, postnasal drip, sinus pressure, tinnitus and ear discharge. Eyes: Negative for photophobia, pain, discharge, redness, itching and visual dis turbance. Respiratory: Negative for apnea, cough, choking, chest tightness, shortness of b reath, wheezing and stridor. Cardiovascular: Negative for chest pain, palpitations and leg swelling. Gastrointestinal: Negative for nausea, vomiting, abdominal pain, diarrhea, const ipation, blood in stool, abdominal distention and anal bleeding. Genitourinary: Negative for dysuria, urgency, frequency, hematuria, flank pain, decreased urine volume, discharge, penile swelling, scrotal swelling, enuresis, difficulty urinating, genital sores, penile pain and testicular pain. Musculoskeletal: Negative for myalgias, back pain, joint swelling, arthralgias a nd gait problem. Skin: Negative for color change, pallor, rash and wound. Neurological: Positive for weakness and numbness. Negative for dizziness, tremor s, seizures, syncope, facial asymmetry, speech difficulty, light-headedness and headaches. Hematological: Negative for adenopathy. Does not bruise/bleed easily. Psychiatric/Behavioral: Negative for suicidal ideas, hallucinations, behavioral problems, confusion, disturbed wake/sleep cycle, self-injury, dysphoric mood, de creased concentration and agitation. The patient is not nervous/anxious and is n ot hyperactive. Objective: clonazePAM (KLONOPIN) 1 mg tablet Take 1 mg by mouth at bedtime daily. Filed Vitals: 11/17/13 1522 BP: 146/79 Pulse: 100 Temp: 36.2 C (97.1 F) TempSrc: Oral Resp: 20 Height: 188 cm (74") Weight: 116.121 kg (256 lb) Body mass index is 32.87 kg/(m^2). Physical Exam Constitutional: He appears well-developed and well-nourished. HENT: Head: Normocephalic and atraumatic. Eyes: EOM are normal. Pupils are equal, round, and reactive to light. Neck: Normal range of motion. Neck supple. No JVD present. No tracheal deviation present. No thyromegaly present. Cardiovascular: Normal rate, regular rhythm, normal heart sounds and intact dist al pulses. Exam reveals no gallop and no friction rub. No murmur heard. Pulmonary/Chest: Breath sounds normal. No respiratory distress. He has no wheeze s. He has no rales. Abdominal: Soft. Bowel sounds are normal. He exhibits no distension. There is no tenderness. There is no rebound and no guarding. Musculoskeletal: Normal range of motion. He exhibits no edema and no tenderness. Bilateral lower extremity 2nd and 3rd toe amputation site. All wounds are h ealed. On RLE there is some slight edema of the forefoot and bogginess of 1st to es Lymphadenopathy: He has no cervical adenopathy. Neurological: He is alert. No cranial nerve deficit. Coordination normal. Skin: Skin is warm and dry. No rash noted. No erythema. No pallor. Psychiatric: He has a normal mood and affect. His behavior is normal. Judgment a nd thought content normal. Assessment and Plan: Mr. Bennett is a 53 M with history of diabetes and bilateral toe amputations. He complains of burning pain at amputation sites on the right toes and some increas e swelling. There is some edema but the wounds are healed and no evidence of act daniel infection. He has palpable pulses and DEE's were done today and were normal at 1 showing no evidence of vascular insufficiency as the underlying cause. I di scussed with him that the pain he is experiencing sounds more neuropathic in jenny ure and have started him on Lyrica. In addition I think it is worthwhile to obta in an MRI to evaluate the soft tissue and make sure there is no underlying infec tion or other cause of his pain. We will try and get this scheduled down at [facility] and plan to have the results faxed. I will then call him with the results and discuss a further plan. OFF SAW TENDER METAL documented in this encounter Plan of Treatment Not on filedocumented as of this encounter Procedures Comments Procedure Name Priority Date/Time Associated Diagnosis ZENA VASC NON INV UE/LE Routine 12/01/2013 PVD (peripheral vascular ARTERIES SINGLE LEVEL LALIT disease) documented in this encounter Visit Diagnoses Diagnosis PVD (peripheral vascular disease) (HCC) - Primary Peripheral vascular disease, unspecified Diabetic foot (HCC) Type II or unspecified type diabetes mellitus with other specified manifestations, not stated as uncontrolled documented in this encounter
--- OUTSIDE RECORDS SUMMARY | 2019-04-24 13:45 | XMS REPORT | Encounter Summary ---
Author Author [facility] Organization [facility] Address Unknown Phone Unavailable Care Team Providers Care Timber Supervisor Name Role Phone Gordo Ferguson MD Unavailable Gildardo Craig MD PCP Georgina Roberts RN Unavailable Unavailable Bren Howard RN Unavailable Unavailable Rohini Muniz DO Unavailable Unavailable Encounter Details Care Team Description Date Type Department 01/29/2017 Hospital [facility] Encounter Health [facility] [address] [address] Social History Date Tobacco Use Types Packs/Day Years Used Never Smoker Smokeless Tobacco: Never Used Drinks/Week oz/Week Comments Alcohol Use No Sex Assigned at Date Recorded Not on file Industry Job Start Date Occupation Not on file Not on file Not on file Travel End Travel History Travel Start No recent travel history available. documented as of this encounter Medications at Time of Discharge Start Date End Date Medication Sig Dispensed Refills clonazePAM (KLONOPIN) 1 Take 1 mg by 0 mg tablet mouth at bedtime daily. 11/17/2013 pregabalin (LYRICA) 75 mg Take 1 Cap by 270 Cap 3 capsule mouth three times daily. documented as of this encounter Plan of Treatment Not on filedocumented as of this encounter Procedures Comments Procedure Name Priority Date/Time Associated Diagnosis CT HEAD EXTERNAL IMAGING Routine 01/29/2017 Diagnosis unknown 12:30 AM CDT documented in this encounter Results * CT HEAD EXTERNAL IMAGING (01/29/2017 12:30 AM CDT) Specimen Narrative Performed At This order has been auto finalized and does not contain a result. documented in this encounter Visit Diagnoses Diagnosis Diagnosis unknown Other unknown and unspecified cause of morbidity or mortality documented in this encounter
--- OUTSIDE RECORDS SUMMARY | 2019-04-24 13:45 | XMS REPORT | Encounter Summary ---
Author Author [facility] Organization [facility] Address Unknown Phone Unavailable Care Team Providers Care Shopper Marketing Manager Name Role Phone Gordo Ferguson MD Unavailable Gildardo Craig MD PCP Georgina Roberts RN Unavailable Unavailable Bren Howard RN Unavailable Unavailable Rohini Muniz DO Unavailable Unavailable Encounter Details Care Team Description Date Type Department 01/29/2017 Hospital [facility] Encounter Health System [address] [address] Social History Date Tobacco Use [...] Comments Procedure Name Priority Date/Time Associated Diagnosis MRI HEAD EXTERNAL IMAGING Routine 01/29/2017 Diagnosis unknown 12:00 AM CDT documented in this encounter Results * MRI HEAD EXTERNAL IMAGING (01/29/2017 12:00 AM CDT) Specimen Narrative Performed At This order has been auto finalized and does not contain a result. documented in this encounter Visit Diagnoses Diagnosis Diagnosis unknown Other unknown and unspecified cause of morbidity or mortality documented in this encounter
--- OUTSIDE RECORDS SUMMARY | 2019-04-24 13:45 | XMS REPORT | Encounter Summary ---
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 Name Role Phone Gordo Ferguson MD Unavailable Gildardo Craig MD PCP Georgina Roberts RN Unavailable Unavailable Bren Howard RN Unavailable Unavailable Rohini Muniz DO Unavailable Unavailable Encounter Details Care Team Description Date Type Department 01/29/2017 Hospital [facility] [address] [address] Social History Date Tobacco Use [...] Comments Procedure Name Priority Date/Time Associated Diagnosis US CAROTID EXTERNAL Routine 01/29/2017 Diagnosis unknown IMAGING 12:15 AM CDT documented in this encounter Results * US CAROTID EXTERNAL IMAGING (01/29/2017 12:15 AM CDT) Specimen Narrative Performed At This order has been auto finalized and does not contain a result. documented in this encounter Visit Diagnoses Diagnosis Diagnosis unknown Other unknown and unspecified cause of morbidity or mortality documented in this encounter
--- OUTSIDE RECORDS SUMMARY | 2019-04-24 13:45 | XMS REPORT | Encounter Summary ---
Author Author [facility] Organization [facility] Address Unknown Phone Unavailable Care Team Providers Care Sr Community Manager Name Role Phone Rajeev Ferguson MD Unavailable Gildardo Craig MD PCP Georgina Roberts RN Unavailable Unavailable Bren Howard RN Unavailable Unavailable Reason for Visit * Reason Comments Wound Re-evaluation called by Dr Ferguson team to come to ED for wound re-evaluation, wearing wound vac Encounter Details Care Team Description Date Type Department Gregory Metcalf MD [address] [facility] [place] [address] 09/20/2013 Emergency [facility] [address] [place] [address] Social History Date Tobacco Use [...] Signs Reading Time Taken Comments Vital Sign 124/82 09/20/2013 9:44 PM SUBSTATION WIREMAN Blood Pressure 80 09/20/2013 9:44 PM SUBSTATION WIREMAN Pulse 36.5 C (97.7 F) 09/20/2013 5:10 PM SUBSTATION WIREMAN Temperature - - Respiratory Rate 99% 09/20/2013 9:44 PM SUBSTATION WIREMAN Oxygen Saturation - - Inhaled Oxygen Concentration 115.3 kg (254 lb 3.1 oz) 09/20/2013 5:10 PM SUBSTATION WIREMAN Weight - - Height 32.64 09/12/2013 12:02 PM SUBSTATION WIREMAN Body Mass Index documented in this encounter Discharge Instructions * Instructions* Barry Jiménez MD - 09/20/2013 You were seen in the [facility] emergency department for abdominal wound. Surgery randy luated you and recommends following up in clinic. Labs and CT scan were reassur ing that there is not additional infection or abscess. Please continue to take the oxycodone until your follow up appointment with surgery clinic. If you have increased fevers, drainage, pain, or have other concerning symptoms please retu rn to the emergency department. * Attachments The following attachments cannot be sent through Care Everywhere.* DRESSING CHANGE (BARBADIAN) documented in this encounter Medications at Time of Discharge Start Date End Date Medication Sig Dispensed Refills 11/14/2013 clonazePAM (KLONOPIN) 1 Take 1 mg by 0 mg tablet mouth at bedtime daily. 08/16/2013 11/14/2013 diazepam (VALIUM) 5 mg Take 0.5-1 30 Tab 0 tablet Tabs by mouth every 6 hours as needed. 08/29/2013 11/14/2013 HYDROmorphone (DILAUDID) Take 1 Tab by 60 Tab 0 2 mg tablet mouth every 3 hours as needed 08/16/2013 11/14/2013 lidocaine (LIDODERM) 5 % Apply to 30 Patch 0 topical patch affected area for 12 hours, then remove for 12 hours. 09/08/2013 11/14/2013 oxyCODone (ROXICODONE) 5 Take 1-2 Tabs 30 Tab 0 mg tabletIndications: by mouth Wound dehiscence every 4 hours as needed for Pain 08/16/2013 11/14/2013 senna/docusate Take 1 Tab by 60 Tab 0 (SENOKOT-S) 8.6/50 mg mouth twice tablet daily. documented as of this encounter H&P Notes * Olvin Loya MD - 09/20/2013 6:49 PM SUBSTATION WIREMAN [facility] Surgery History and Physical Examination 09/20/2013 Patient: Jarett Bennett Admission Date: 09/20/2013, LOS: 0 days Admission Diagnosis: No admission diagnoses for hospital encounter. ASSESSMENT: 1. 53 y.o. male with previous ventral hernia repair 08/15/13 and wound explorat ion 09/02/13 for seroma. Here with pain and redness around wound vac site and c omplaint of bilateral lower extremity pain and swelling. CT scan and ultrasound negative PLAN: -OK to d/c per ER with follow up as scheduled with Dr. Ferguson -change wound vac to wet to dry dressings Discussed plan of care with staff surgeon, Dr. Ferguson, who directed plan of care __ HPI: Jarett Bennett is a 53 y.o. male with previous ventral hernia repair and wound exploration 09/02/13 for seroma. Here with pain and redness around wound vac site and complaint of bilateral lower extremity pain and swelling. He called the hospital today multiple times regarding pain and redness around mi dline wound vac site along with drainage around the sites of the wound vac. He was unable to describe the leakage over the telephone and due to pain complaints he was told to come to ER. He also reports redness and feeling a mass around t he wound vac site. He presented to the ER with the wound vac already removed by home health. He also complains of 1 day history of bilateral leg/ankle pain and swelling that keeps him from walking. Pain worse on dorsiflexion of the foot. Past Medical History Diagnosis Date Diabetes Past Surgical History Procedure Date Back surgery 2009 Hernia repair Knee surgery Acl reconstruction Wrist surgery Medications: No current facility-administered medications on file prior to encounter. Current Outpatient Prescriptions on File Prior to Encounter Medication Sig Dispense Refill oxyCODone (ROXICODONE) 5 mg tablet Take 1-2 Tabs by mouth every 4 hours as n eeded for Pain 30 Tab 0 HYDROmorphone (DILAUDID) 2 mg tablet Take 1 Tab by mouth every 3 hours as ne eded 60 Tab 0 lidocaine (LIDODERM) 5 % topical patch Apply to affected area for 12 hours, then remove for 12 hours. 30 Patch 0 senna/docusate (SENOKOT-S) 8.6/50 mg tablet Take 1 Tab by mouth twice daily. 60 Tab 0 diazepam (VALIUM) 5 mg tablet Take 0.5-1 Tabs by mouth every 6 hours as need ed. 30 Tab 0 clonazePAM (KLONOPIN) 1 mg tablet Take 1 mg by mouth at bedtime daily. Allergies: Review of patient's allergies indicates no known allergies. History Social History Marital Status: Spouse Name: N/A Number of Children: N/A Years of Education: N/A Occupational History Not on file. Social History Main Topics Smoking status: Never Smoker Smokeless tobacco: Never Used Alcohol Use: No Drug Use: No Sexually Active: Not on file Other Topics Concern Not on file Social History Narrative No narrative on file No family history on file. Vitals: Vital Signs: Last Filed In 24 Hours Vital Signs: 24 Hour Range BP: 140/86 mmHg (09/20 1710) Temp: 36.5 C (97.7 F) (09/20 1710) Respirations: 18 PER MINUTE (09/20 1710) SpO2: 99 % (09/20 1710) O2 Delivery: None (Room Air) (09/20 1710) BP: (140)/(86) Temp: [36.5 C (97.7 F)] Respirations: [18 PER MINUTE] SpO2: [99 %] O2 Delivery: [-] Intensity Pain Scale 0-10 (Pain 1): 7 (09/20/131709) Intake/Output: No intake or output data in the 24 hours ending 09/20/131848 Physical Exam: GENERAL: alert and oriented EYES: pupils equal and reactive EARS: No hemotympanum MOUTH: No missing teeth, uvula midline NECK: trachea midline HEART: Regular rate and rhythm, no murmurs ausculated LUNGS: clear bilaterally ABDOMEN: bowel sounds present. Erythematous patches of skin around wound vac si te in the distribution of the vac adhesive. Good granulation tissue at the base of the two wounds without exposed mesh. No inflammation around wound sites. D iffusely tender abdomen. EXTREMITIES: Palpable pulses but tender in bilateral feet and calves. Mild guillermo a NEURO: No numbness in all extremities bilaterally ROS: A complete 12 point ROS was obtained and was negative except for those listed in HPI Lab/Radiology/Other Diagnostic Tests: Recent Labs Basename 09/20/13 1744 HGB 13.7 HCT 41.7 WBC 5.3 PLTCT 161 NA 135* K 3.6 CL 99 CO2 30 BUN 16 CR 0.89 GLU 205* CA 9.0 MG 1.7 PO4 2.5 ALBUMIN -- TOTPROT -- TOTBILI -- AST -- ALT -- ALKPHOS -- SUZY -- LIPASE -- PREALB -- INR -- PT -- PTT -- Glucose: 205 (09/20/13 1744) Olvin Loya MD Pager [phone] TATION WIREMAN documented in this encounter ED Notes * SCANNED DOCUMENT - 09/22/2013 9:17 AM SUBSTATION WIREMAN TATION WIREMAN * Gregory Metcalf MD - 09/21/2013 2:48 AM SUBSTATION WIREMAN Jarett Bennett is a 53 y.o. male. Chief Complaint: Chief Complaint Patient presents with Wound Re-evaluation called by Dr Ferguson team to come to ED for wound re-evaluation, wearing wound v ac History of Present Illness: HPI Comments: 53 yo M with h/o abdominal hernia repair with wound complication p resenting with abdominal pain and leg swelling. Overnight, patient noticed that he "soaked" his sheets from sweating. Home health nurse came to his house toda y, removed wound vac to abdomen with concern for infection. Temperature at home has been 99F. Called Dr. Ferguson's clinic and they recommended he come to emerge ncy department for evaluation. Swelling and pain to both legs started last nigh t. No h/o blood clots, denies shortness of breath. The history is provided by the patient. Review of Systems: Review of Systems Constitutional: Positive for fever, chills and diaphoresis. HENT: Negative for sore throat, trouble swallowing and voice change. Eyes: Negative for photophobia and visual disturbance. Respiratory: Negative for apnea, cough, chest tightness, shortness of breath and wheezing. Cardiovascular: Negative for chest pain, palpitations and leg swelling. Gastrointestinal: Positive for abdominal pain and constipation. Negative for alicia sea, vomiting and diarrhea. Genitourinary: Negative for dysuria, urgency, frequency, hematuria and flank sheri n. Skin: Positive for wound (abdominal wound). Negative for color change, pallor an d rash. Neurological: Negative for dizziness, weakness, light-headedness, numbness and h eadaches. Psychiatric/Behavioral: Negative for behavioral problems, confusion and agitatio n. Allergies: Review of patient's allergies indicates no known allergies. Past Medical History: Nursing Medical History Diabetes Yes no meds,"diet controlled" Other Yes recurrent ventral hernia,low back pain Past Surgical History: Nursing Surgical History Back Surgery Yes fusion Other Yes hernia,knee,wrist Past Medical History Diagnosis Date Diabetes Past Surgical History Procedure Date Back surgery 2010 Hernia repair Knee surgery Acl reconstruction Wrist surgery Social History: History Substance Use Topics Smoking status: Never Smoker Smokeless tobacco: Never Used Alcohol Use: No History Drug Use No Family History: No family history on file. Vitals: ED Vitals Date and Time T BP P RR SPO2P SPO2 [facility] 09/20/13 2144 -- 124/82 80 18 -- 99 MS 09/20/13 2037 -- 121/75 62 18 -- 96 MS 09/20/13 1710 36.5 (97.7) 140/86 -- 18 73 99 LP Physical Exam: Physical Exam Nursing note and vitals reviewed. Constitutional: He is oriented to person, place, and time. He appears well-devel oped and well-nourished. No distress. HENT: Mouth/Throat: Oropharynx is clear and moist. No oropharyngeal exudate. Eyes: Conjunctivae and EOM are normal. Right eye exhibits no discharge. Left eye exhibits no discharge. No scleral icterus. Neck: Normal range of motion. Neck supple. No JVD present. Cardiovascular: Normal rate, regular rhythm, normal heart sounds and intact dist al pulses. Exam reveals no gallop and no friction rub. No murmur heard. Pulmonary/Chest: Effort normal and breath sounds normal. No stridor. No respirat ory distress. He has no wheezes. He has no rales. He exhibits no tenderness. Abdominal: Soft. Bowel sounds are normal. He exhibits no distension and no mass. There is tenderness in the periumbilical area and suprapubic area. There is gua rding. There is no rebound. Musculoskeletal: He exhibits no edema and no tenderness. Lymphadenopathy: He has no cervical adenopathy. Neurological: He is alert and oriented to person, place, and time. No cranial ne rve deficit. Coordination normal. Skin: Skin is warm and dry. He is not diaphoretic. Psychiatric: He has a normal mood and affect. His behavior is normal. Judgment a nd thought content normal. Laboratory Results: Results for orders placed during the hospital encounter of 09/20/13 (from the [facility] 24 hour(s)) CBC AND DIFF Component Value Range White Blood Cells 5.3 4.5 - 11.0 K/UL RBC 4.72 4.4 - 5.5 M/UL Hemoglobin 13.7 13.5 - 16.5 GM/DL Hematocrit 41.7 40 - 50 % MCV 88.3 80 - 100 FL MCH 29.0 26 - 34 PG MCHC 32.9 32.0 - 36.0 G/DL RDW 12.8 11 - 15 % Platelet Count 161 150 - 400 K/UL MPV 9.0 7 - 11 FL Neutrophils 47 41 - 77 % Lymphocytes 41 24 - 44 % Monocytes 9 4 - 12 % Eosinophils 2 0 - 5 % Basophils 1 0 - 2 % Absolute Neutrophil Count 2.50 1.8 - 7.0 K/UL Absolute Lymph Count 2.20 1.0 - 4.8 K/UL Absolute Monocyte Count 0.50 0 - 0.80 K/UL Absolute Eosinophil Count 0.10 0 - 0.45 K/UL Absolute Basophil Count 0.00 0 - 0.20 K/UL MAGNESIUM Component Value Range Magnesium 1.7 1.6 - 2.6 MG/DL PHOSPHORUS Component Value Range Phosphorus 2.5 2.0 - 4.0 MG/DL BASIC METABOLIC PANEL Component Value Range Sodium 135 (*) 137 - 147 MMOL/L Potassium 3.6 3.5 - 5.1 MMOL/L Chloride 99 98 - 110 MMOL/L CO2 30 21 - 30 MMOL/L Anion Gap 6 (*) 8 - 12 Glucose 205 (*) 70 - 100 MG/DL Blood Urea Nitrogen 16 7 - 25 MG/DL Creatinine 0.89 0.4 - 1.24 MG/DL Calcium 9.0 8.6 - 10.3 MG/DL eGFR Non >60 >60 ML/MIN/1.73 SQM eGFR >60 >60 ML/MIN/1.73 SQM Radiology Interpretation: CT ABD/PELV W CONTRAST IMPRESSION: 1. PRIOR VENTRAL HERNIA REPAIR WITH RESOLUTION OF PREVIOUS ABDOMINAL WALL GAS AND FLUID, WITHOUT DISCRETE ABSCESS CURRENTLY PRESENT. THERE IS AN OPEN OR DEHISCENT ABDOMINAL MIDLINE INCISION REMAINING WELL SUBCUTANEOUS EDEMA WITHIN THE ANTERIOR ABDOMINAL WALL AND FLANKS. 2. NO BOWEL OBSTRUCTION OR ASCITES. 3. THIN APPEARANCE OF THE ADRENAL GLANDS. THIS COULD BE DUE TO EXOGENOUS ADMINISTRATION OF STEROIDS, RELEVANT IN THAT THE PATIENT WOULD BE AT RISK FOR ADRENAL INSUFFICIENCY IF STEROIDS WERE WITHDRAWN. Electronically signed on: Sep 20 2013 8:04PM by RAJEEV KAT DOPPLER VENOUS BILATERAL IMPRESSION: NO EVIDENCE OF FEMORAL/POPLITEAL DVT IN THE BILATERAL LOWER EXTREMITIES. Residents: SUZY GODINEZ Electronically signed on: Sep 20 2013 7:36PM by RAJEEV KAT EKG: N/a ED Course: Patient seen and evaluated by resident and attending physician Vitals stable, afebrile CBC, CMP, ultrasound bilateral lower extremities, CT abd/pelv No leukocytosis, other labs as above Surgery consult - recommend d/c home with Dr. Ferguson clinic follow up Ultrasound neg for DVT CT abd/pelv negative for abscess or infectious cause of abdominal pain Pain controlled, will d/c home, return precautions, surgery clinic follow up MDM Reviewed: previous chart, nursing note and vitals Reviewed previous: labs Interpretation: labs and ultrasound Facility Administered Meds: Facility-Administered Medications as of 09/20/2013 Medication Last Dose DISCONTD: morphine injection syringe 8 mg 8 mg at 09/20/13 1823 DISCONTD: SODIUM CHLORIDE 0.9 % IR SOLN (AcuDose pull) Clinical Impression: 1. S/P repair of ventral hernia 2. Abdominal pain Disposition/Follow up Discharge General Surgery in 1 week Gildardo Craig MD Medications: Patient's Medications New Prescriptions No medications on file Procedure Notes: Procedures Resident Supervision: I personally interviewed and examined patient and discussed case and medical dec ision making with resident. I agree with plan and note. Gregory Metcalf MD TATION WIREMAN * Shawn Shaffer RN - 09/20/2013 9:45 PM SUBSTATION WIREMAN Pt dc instructions provided. Pt verbalizes understanding. Pt dc'd home with . TATION WIREMAN * Shawn Shaffer RN - 09/20/2013 8:15 PM SUBSTATION WIREMAN Pt returned from CT exam. Waiting on results. Pt denies need for pain medication at this time. VSS, resp even and non-labored. Pt expresses concern about possib le re-infection with current dressings. States that he would prefer to go back o n to the wound vac even though it isn't as comfortable. Will continue to monitor pt for changes in assessment. TATION WIREMAN * Ruma Cross RN - 09/20/2013 7:10 PM SUBSTATION WIREMAN Pt to CT. TATION WIREMAN * Ruma Cross RN - 09/20/2013 6:30 PM SUBSTATION WIREMAN Pt to US during during pain medication evaluation of therapy. TATION WIREMAN * Ruma Cross RN - 09/20/2013 5:47 PM SUBSTATION WIREMAN Line and labs completed and sent. TATION WIREMAN * Elicia Lozano - 09/20/2013 5:22 PM SUBSTATION WIREMAN Vincenzo at bedside TATION WIREMAN * Elicia Lozano - 09/20/2013 5:18 PM SUBSTATION WIREMAN 53 year old W M comes to the ED for right leg pain and issues with a abd wound v ac. Pt is A/O times three, lung sounds clear, BS +. Pt reports no bowel movement today, w a poor po intake. Pt complains of right lower extremity pain, no swell ing noted 3+ pulses. Pt has posterior knee pain as well. Pt states that at 230 t his am he woke w the arm for his wound vac going off. Pt has a W/D dressing in p lace. TATION WIREMAN documented in this encounter Miscellaneous Notes * Admin - SCANNED DOCUMENT - 09/22/2013 11:32 AM SUBSTATION WIREMAN TATION WIREMAN * Admin - SCANNED DOCUMENT - 09/20/2013 6:02 PM SUBSTATION WIREMAN TATION WIREMAN documented in this encounter Plan of Treatment Not on filedocumented as of this encounter Procedures Comments Procedure Name Priority Date/Time Associated Diagnosis CT ABD/PELV W CONTRAST STAT 09/20/2013 7:31 PM SUBSTATION WIREMAN US EXTRM-ANATOM SPEC 09/20/2013 BILAT 7:12 PM SUBSTATION WIREMAN US DOPPLER VENOUS STAT 09/20/2013 BILATERAL 6:50 PM SUBSTATION WIREMAN CBC AND DIFF STAT 09/20/2013 5:44 PM SUBSTATION WIREMAN PHOSPHORUS STAT 09/20/2013 5:44 PM SUBSTATION WIREMAN MAGNESIUM STAT 09/20/2013 5:44 PM SUBSTATION WIREMAN BASIC METABOLIC PANEL STAT 09/20/2013 5:44 PM SUBSTATION WIREMAN documented in this encounter Results * CT ABD/PELV W CONTRAST (09/20/2013 7:31 PM SUBSTATION WIREMAN) Exam Status ++++++ [facility] ++++ SIGNED REPORT ++++++++++ Exam EXAM: [facility] CT ABDOMEN PELVIS WITH CONTRAST Clinical History: 53-year-old male for abdominal wound reevaluation. Patient is having leg pain. Technique: Multiple contiguous axial images are obtained through the abdomen and pelvis following uneventful administration of IV contrast. Additional delayed images are obtained. Coronal and sagittal multiplanar reformatted images are obtained. Findings: has personally reviewed these images and formulated the interpretations and opinions expressed in this report. Comparison is made with prior CT from 08/29/2013. The heart size is normal with only minimal anterior right pericardial effusion. Lung bases are demonstrate only mild bilateral lower lobe linear atelectasis and scarring. The liver demonstrates an elongated right lobe, normal variant. No focal hepatic lesion is seen. The spleen is normal in size without focal lesion. Gallbladder is surgically absent without significant common bile duct dilatation. There is some mild to moderate fatty replacement of the pancreas, mainly proximally. No focal pancreatic lesion is seen. Adrenal glands appear somewhat thin, similar to prior. The kidneys appear grossly unremarkable without hydronephrosis or hydroureter. Urinary bladder, prostate and seminal vesicles appear unremarkable., Aorta and its major branches appear to opacify normally without aneurysm or dissection. Large and small bowel loops are normal in caliber without suspicious focal wall thickening. There is no free air, free fluid, or focal adenopathy. Osseous structures are stable with postsurgical changes about the lumbar spine again noted with posterior spinal fixation extending from L3 to S1. Mild subcutaneous edema about the pelvis bilaterally is similar, with some small chronic appearing subcutaneous calcifications lateral to the right hip. There is previous midline ventral hernia repair with mesh and no evidence of recurrent hernia. There is an open abdominal wound defect with some dressing within the midline incision. The defect extends to the subcutaneous tissues, though does not extend deeper to the muscular abdominal wall. There is some linear soft tissue density about the incision site with resolution of previous gas and fluid about the abdominal wall. Subcutaneous edema present at the anterior abdominal wall and flanks, though no discrete drainable abscess is identified. Some small bowel loops are noted immediately adjacent to the mesh once again, with adhesions a consideration for cause if patient has future bowel obstruction. Impression CT ABD/PELV W [facility] CONTRASTIM PRESSION: 1. PRIOR VENTRAL HERNIA REPAIR WITH RESOLUTION OF PREVIOUS ABDOMINAL WALL GAS AND FLUID, WITHOUT DISCRETE ABSCESS CURRENTLY PRESENT. THERE IS AN OPEN OR DEHISCENT ABDOMINAL MIDLINE INCISION REMAINING WELL SUBCUTANEOUS EDEMA WITHIN THE ANTERIOR ABDOMINAL WALL AND FLANKS. 2. NO BOWEL OBSTRUCTION OR ASCITES. 3. THIN APPEARANCE OF THE ADRENAL GLANDS. THIS COULD BE DUE TO EXOGENOUS ADMINISTRATION OF STEROIDS, RELEVANT IN THAT THE PATIENT WOULD BE AT RISK FOR ADRENAL INSUFFICIENCY IF STEROIDS WERE WITHDRAWN. Electronically signed on: Sep 20:04PM by RAJEEV KAT Specimen Impressions Performed At [facility] 1. PRIOR VENTRAL HERNIA REPAIR WITH RESOLUTION OF PREVIOUS ABDOMINAL WALL GAS AND FLUID, WITHOUT DISCRETE ABSCESS CURRENTLY PRESENT. THERE IS AN OPEN OR DEHISCENT ABDOMINAL MIDLINE INCISION REMAINING WELL SUBCUTANEOUS EDEMA WITHIN THE ANTERIOR ABDOMINAL WALL AND FLANKS. 2. NO BOWEL OBSTRUCTION OR ASCITES. 3. THIN APPEARANCE OF THE ADRENAL GLANDS. THIS COULD BE DUE TO EXOGENOUS ADMINISTRATION OF STEROIDS, RELEVANT IN THAT THE PATIENT WOULD BE AT RISK FOR ADRENAL INSUFFICIENCY IF STEROIDS WERE WITHDRAWN. Electronically signed on: Sep 20:PM by RAJEEV KAT Narrative Performed At EXAM: [facility] CT ABDOMEN PELVIS WITH CONTRAST Clinical History: 53-year-old male for abdominal wound reevaluation. Patient is having leg pain. Technique: Multiple contiguous axial images are obtained through the abdomen and pelvis following uneventful administration of IV contrast. Additional delayed images are obtained. Coronal and sagittal multiplanar reformatted images are obtained. Findings: has personally reviewed these images and formulated the interpretations and opinions expressed in this report. Comparison is made with prior CT from 08/29/2013. The heart size is normal with only minimal anterior right pericardial effusion. Lung bases are demonstrate only mild bilateral lower lobe linear atelectasis and scarring. The liver demonstrates an elongated right lobe, normal variant. No focal hepatic lesion is seen. The spleen is normal in size without focal lesion. Gallbladder is surgically absent without significant common bile duct dilatation. There is some mild to moderate fatty replacement of the pancreas, mainly proximally. No focal pancreatic lesion is seen. Adrenal glands appear somewhat thin, similar to prior. The kidneys appear grossly unremarkable without hydronephrosis or hydroureter. Urinary bladder, prostate and seminal vesicles appear unremarkable., Aorta and its major branches appear to opacify normally without aneurysm or dissection. Large and small bowel loops are normal in caliber without suspicious focal wall thickening. There is no free air, free fluid, or focal adenopathy. Osseous structures are stable with postsurgical changes about the lumbar spine again noted with posterior spinal fixation extending from L3 to S1. Mild subcutaneous edema about the pelvis bilaterally is similar, with some small chronic appearing subcutaneous calcifications lateral to the right hip. There is previous midline ventral hernia repair with mesh and no evidence of recurrent hernia. There is an open abdominal wound defect with some dressing within the midline incision. The defect extends to the subcutaneous tissues, though does not extend deeper to the muscular abdominal wall. There is some linear soft tissue density about the incision site with resolution of previous gas and fluid about the abdominal wall. Subcutaneous edema present at the anterior abdominal wall and flanks, though no discrete drainable abscess is identified. Some small bowel loops are noted immediately adjacent to the mesh once again, with adhesions a consideration for cause if patient has future bowel obstruction. Performing Organization Address City/State/Zipcode Phone Number [facility] * US EXTRM-ANATOM SPEC BILAT (09/20/2013 7:12 PM SUBSTATION WIREMAN) Exam Status ++++++ [facility] ++++ SIGNED REPORT ++++++++++ Exam EXAM: [facility] ULTRASOUND DOPPLER OF BILATERAL LOWER EXTREMITIES: Clinical Indication: Leg pain Technique: Multiple real-time grayscale sonographic images were obtained throughout the bilateral lower extremities with additional color Doppler and duplex acquisitions to examine the deep venous systems. Findings: has personally reviewed these images and formulated the interpretations and opinions expressed in this report. There are no areas of narrowing or occlusion within the deep veins of the bilateral lower extremities.The common femoral, deep femoral, femoral, saphenous, and popliteal veins of the lower extremities are widely patent and demonstrate normal color and Duplex Doppler imaging. No abnormal compression or augmentation is identified. There is no evidence of mass or fluid collection within the lower extremities. Impression US EXTR ANATOM SPEC [facility] RAD BILATERALIMPRESSION: NO EVIDENCE OF FEMORAL/POPLITEAL DVT IN THE BILATERAL LOWER EXTREMITIES. Residents: SUZY GODINEZ Electronically signed on: Sep 20 20137:36PM by RAJEEV KAT By my electronic signature, I attest that I have personally reviewed the images for this examination and formulated the interpretations and opinions expressed in this report. Specimen Impressions Performed At [facility] ANATOM SPEC BILATERALIMPRESSION: [facility] NO EVIDENCE OF FEMORAL/POPLITEAL DVT IN THE BILATERAL LOWER EXTREMITIES. Residents: SUZY GODINEZ Electronically signed on: Sep 20 20137:36PM by RAJEEV KAT By my electronic signature, I attest that I have personally reviewed the images for this examination and formulated the interpretations and opinions expressed in this report. Narrative Performed At EXAM: [facility] ULTRASOUND DOPPLER OF BILATERAL LOWER EXTREMITIES: Clinical Indication: Leg pain Technique: Multiple real-time grayscale sonographic images were obtained throughout the bilateral lower extremities with additional color Doppler and duplex acquisitions to examine the deep venous systems. Findings: has personally reviewed these images and formulated the interpretations and opinions expressed in this report. There are no areas of narrowing or occlusion within the deep veins of the bilateral lower extremities.The common femoral, deep femoral, femoral, saphenous, and popliteal veins of the lower extremities are widely patent and demonstrate normal color and Duplex Doppler imaging. No abnormal compression or augmentation is identified. There is no evidence of mass or fluid collection within the lower extremities. Performing Organization Address City/State/Zipcode Phone Number [facility] * US DOPPLER VENOUS BILATERAL (09/20/2013 6:50 PM SUBSTATION WIREMAN) Exam Status ++++++ [facility] RAD ++++ SIGNED REPORT ++++++++++ Exam EXAM: [facility] ULTRASOUND DOPPLER OF BILATERAL LOWER EXTREMITIES: Clinical Indication: Leg pain Technique: Multiple real-time grayscale sonographic images were obtained throughout the bilateral lower extremities with additional color Doppler and duplex acquisitions to examine the deep venous systems. Findings: has personally reviewed these images and formulated the interpretations and opinions expressed in this report. There are no areas of narrowing or occlusion within the deep veins of the bilateral lower extremities.The common femoral, deep femoral, femoral, saphenous, and popliteal veins of the lower extremities are widely patent and demonstrate normal color and Duplex Doppler imaging. No abnormal compression or augmentation is identified. There is no evidence of mass or fluid collection within the lower extremities. Impression DOPPLER VENOUS [facility] BILATERALIMPRE SSION: NO EVIDENCE OF FEMORAL/POPLITEAL DVT IN THE BILATERAL LOWER EXTREMITIES. Residents: SUZY GODINEZ Electronically signed on: Sep 20 20137:36PM by RAJEEV KAT By my electronic signature, I attest that I have personally reviewed the images for this examination and formulated the interpretations and opinions expressed in this report. Specimen Impressions Performed At DOPPLER VENOUS BILATERALIMPRESSION: [facility] NO EVIDENCE OF FEMORAL/POPLITEAL DVT IN THE BILATERAL LOWER EXTREMITIES. Residents: SUZY GODINEZ Electronically signed on: Sep 20 20137:36PM by RAJEEV KAT By my electronic signature, I attest that I have personally reviewed the images for this examination and formulated the interpretations and opinions expressed in this report. Narrative Performed At EXAM: [facility] ULTRASOUND DOPPLER OF BILATERAL LOWER EXTREMITIES: Clinical Indication: Leg pain Technique: Multiple real-time grayscale sonographic images were obtained throughout the bilateral lower extremities with additional color Doppler and duplex acquisitions to examine the deep venous systems. Findings: has personally reviewed these images and formulated the interpretations and opinions expressed in this report. There are no areas of narrowing or occlusion within the deep veins of the bilateral lower extremities.The common femoral, deep femoral, femoral, saphenous, and popliteal veins of the lower extremities are widely patent and demonstrate normal color and Duplex Doppler imaging. No abnormal compression or augmentation is identified. There is no evidence of mass or fluid collection within the lower extremities. Performing Organization Address City/[facility] Phone Number [facility] * BASIC METABOLIC PANEL (09/20/2013 5:44 PM SUBSTATION WIREMAN) Sodium 135 (L) 137 - 147 MMOL/L [facility] Potassium 3.6 3.5 - 5.1 MMOL/L [facility] Chloride 99 98 - 110 MMOL/L [facility] CO2 30 21 - 30 MMOL/L [facility] Anion Gap 6 (L) 8 - 12 [facility] Glucose 205 (H) 70 - 100 MG/DL [facility] Blood Urea 16 7 - 25 MG/DL [facility] Nitrogen Creatinine 0.89 0.4 - 1.24 MG/DL [facility] Calcium 9.0 8.6 - 10.3 MG/DL [facility] eGFR Non >60 >60 ML/MIN/1.73 SQM [facility] Comment: Czech The eGFR is not validated for use in drug dosing adjustments.Continue to use estimated creatinine clearance per dosing reference text.Please contact the Clinical Pharmacist for questions. eGFR >60 >60 ML/MIN/1.73 SQM [facility] Czech Comment: The eGFR is not validated for use in drug dosing adjustments.Continue to use estimated creatinine clearance per dosing reference text.Please contact the Clinical Pharmacist for questions. Specimen Blood - Blood Performing Organization Address [facility]/Zipcode Phone Number [facility] [address] [place] [address] * PHOSPHORUS (09/20/2013 5:44 PM SUBSTATION WIREMAN) Phosphorus 2.5 2.0 - 4.0 MG/DL [facility] Specimen Blood - Blood Performing Organization Address [facility]/Zipcode Phone Number [facility] [address] [place] [address] * MAGNESIUM (09/20/2013 5:44 PM SUBSTATION WIREMAN) Magnesium 1.7 1.6 - 2.6 MG/DL [facility] Specimen Blood - Blood Performing Organization Address [facility]/Zipcode Phone Number [facility] [address] [place] [address] * CBC AND DIFF (09/20/2013 5:44 PM SUBSTATION WIREMAN) White Blood 5.3 4.5 - 11.0 K/UL [facility] Cells RBC 4.72 4.4 - 5.5 M/UL [facility] Hemoglobin 13.7 13.5 - 16.5 GM/DL [facility] Hematocrit 41.7 40 - 50 % [facility] MCV 88.3 80 - 100 FL [facility] MCH 29.0 26 - 34 PG [facility] MCHC 32.9 32.0 - 36.0 G/DL [facility] RDW 12.8 11 - 15 % [facility] Platelet Count 161 150 - 400 K/UL [facility] MPV 9.0 7 - 11 FL [facility] Neutrophils 47 41 - 77 % [facility] Lymphocytes 41 24 - 44 % [facility] Monocytes 9 4 - 12 % [facility] Eosinophils 2 0 - 5 % [facility] Basophils 1 0 - 2 % [facility] Absolute 2.50 1.8 - 7.0 K/UL [facility] Neutrophil Count Absolute Lymph 2.20 1.0 - 4.8 K/UL [facility] Count Absolute 0.50 0 - 0.80 K/UL [facility] Monocyte Count Absolute 0.10 0 - 0.45 K/UL [facility] Eosinophil Count Absolute 0.00 0 - 0.20 K/UL [facility] Basophil Count Specimen Blood - Blood Performing Organization Address City/State/Zipcode Phone Number [facility] [address] [place] [address] documented in this encounter Visit Diagnoses Diagnosis S/P repair of ventral hernia - Primary Other postprocedural status Abdominal pain Abdominal pain, unspecified site documented in this encounter Administered Medications Action Date Dose Rate Site Medication Order MAR Action 09/20/2013 6:23 PM SUBSTATION WIREMAN 8 mg morphine injection syringe 8 mg Given 8 mg, Intravenous, EVERY 1 HOUR PRN, Starting 09/20/13 at 1808, Until 09/20/13 at 2346, Pain, NOTE: This is a HIGH ALERT Medication., documented in this encounter
--- OUTSIDE RECORDS SUMMARY | 2019-04-24 13:48 | XMS REPORT | Encounter Summary ---
Author Author [facility] Organization [facility] Address Unknown Phone Unavailable Care Team Providers Care Vegetable Vendor Name Role Phone Rajeev Ferguson MD Unavailable Gildardo Craig MD PCP Georgina Roberts RN Unavailable Unavailable Bren Howard RN Unavailable Unavailable Reason for Visit * Reason Comments Abdominal pain hernia repair- increased pain and swelling * Auth/Cert Referred By Contact Referred To Contact Status Reason Specialty Diagnoses / Procedures [facility] [address] [place] [id number] Closed Diagnoses S/P repair of ventral hernia Encounter Details Care Team Description Date Type Department Rajeev Ferguson MD [address] [place], [place] [id number] S/P repair of ventral hernia 08/30/2013 [facility] 09/08/[address] [place] [address] [id number] Social History Date Tobacco Use Types Packs/Day [...] Signs Reading Time Taken Comments Vital Sign 111/82 09/08/2013 11:30 AM OUT[employer] SAL[employer]ANT Blood Pressure 105 09/08/2013 11:30 AM OUTSIDE [employer] SALES CONSULTANT Pulse 36.6 C (97.9 F) 09/08/2013 11:30 AM OUTS[employer] SALES CONSULTANT Temperature - - Respiratory Rate 95% 09/08/2013 11:30 AM OUTS[employer] SALES CONSULTANT Oxygen Saturation - - Inhaled Oxygen Concentration 108 kg (238 lb) 08/30/2013 11:58 PM CDT Weight 188 cm (6' 2") 08/30/2013 11:58 PM CDT Height 30.56 08/30/2013 11:58 PM CDT Body Mass Index documented in this encounter Discharge Summaries * Rufino Olmstead, - 09/08/2013 12:46 PM OUT[employer]SULTANT Physician Discharge Summary Name: Jarett Bennett Date Of : 1960 Age: 53 years Admit date: 08/30/2013 Discharge date: 09/08/2013 Attending Physician: Rajeev Ferguson Service: Surgery-General/Emergency Physician Summary completed by: Rufino Olmstead DO Reason for hospitalization: s/p ventral hernia repair with mesh placement on 09/17 with post-operative drainage and erythema at incision site. Significant PMH: Past Medical History Diagnosis Date Diabetes Allergies: Review of patient's allergies indicates no known allergies. Admission Physical Exam notable for: Appears distressed, diaphoretic Tachy to 100s CTAB Abd soft, very tender throughout with voluntary guarding, particularly along mid line incision. Serous drainage from superior aspect of the wound. Surrounding er ythema with mild induration. No purulence. No peripheral edema Admission Lab/Radiology studies notable for: CT abd/Pelvis on 08/29/13 IMPRESSION: 1. POSTOPERATIVE CHANGES OF RECENT ABDOMINAL WALL HERNIA REPAIR ABOVE. 2. GAS AND FLUID COLLECTION IN THE ANTERIOR ABDOMINAL MUSCULATURE AND SUBCUTANEOUS TISSUE LIKELY REPRESENTING ABSCESS. CORRELATION WITH REPORTED DRAINING FLUID ANALYSIS IS SUGGESTED. 3. NO BOWEL OBSTRUCTION OR INTRA-ABDOMINAL INFLAMMATORY MASS. Brief Hospital Course: The patient was admitted and the following issues were a ddressed during this hospitalization: (with pertinent details). Patient was admitted from [facility] after being seen in clinic on 08/29/13 with evide nce of seroma that was drained in clinic who presented to [facility] on 08/31/13 for w orsening abdominal pain, fever and wound drainage, started on antibiotics. Alise ent was taken to the operating room on hospital stay day 2 for wound exploration . washout and wound vac placement. Patient was restarted on regular diet on POD 1 and continued wound vac with IV antibiotics. Wound vac was changed on POD 2 w ith evidence of good granulation tissue. Patient's blood sugars were mildly con trolled with high dose insulin, as patient has history of DM. Patient was disch arged on POD 6 with home health for wound vac maintanence in stable condition, t olerating a general diet and pain controlled with PO pain meds. Intra-op wound cultures were positive for MSSA via broth-will not send patient home on antibio tics. Patient to follow up in clinic on 09/12/13 for wound vac change. Condition at Discharge: Stable Discharge Diagnoses: Active Problems: S/P repair of ventral hernia Surgical Procedures: 09/02/13: exploration of wound, washout and wound vac placement Significant Diagnostic Studies and Procedures: Consults: None Patient Disposition: Home with Home Health Care Patient instructions/medications: Activity as Tolerated You should resume your normal activity at discharge. Lifting Restrictions Do not lift more than 10 pounds for 4 week(s). Driving Restrictions No driving while taking pain medication. Bathing Restrictions No bathing or showering while wound vac is in place Return Appointment Please call Dr. Ferguson's office at [phone] to schedule your appointment time on 09/12/13. Provider RAJEEV FERGUSON [[id number]] Location Surgery Clinic Appointment date: 09/12/2013 Report These Signs and Symptoms Please contact your doctor if you have any of the following symptoms: temperatur e higher than 101.4 degrees F, uncontrolled pain, persistent nausea and/or vomit ing or difficulty breathing, worsening pain from wound site, pus drainage from w ound, uncontrollable bleeding. Questions About Your Stay For questions or concerns regarding your hospital stay: DURING BUSINESS HOURS (8:00 AM - 4:30 PM): Call [phone] and asked to be transferred to your discharge attending physic romeo (below). AFTER BUSINESS HOURS (4:30 PM - 8:00 AM, on weekends, or holidays): Call [phone] and ask the plastic molding operator to page the on-call doctor for the discha rge attending physician (below). Discharging attending physician: RAJEEV FERGUSON [[id number]] Diabetic Diet You should eat between 2100 and 2400 calories per day. This is equal to 75g (gr ams) of carbohydrates per meal, and 30g of carbohydrates for a bedtime snack. If you have questions about your diet after you go home, you can call a dietitia n at [phone]. Wound Care Keep wound clean and dry. Do not submerge under water. Keep wound vac in place at 125 mmhg at all times. Call the home health team if wound vac dysfunctions. Will change wound vac at follow up visit with Dr. Ferguson on 09/12/13 Opioid (Narcotic) Safety Information OPIOID (NARCOTIC) PAIN MEDICATION SAFETY We care about your comfort, and believe you need opioid medications at this time to treat your pain. An opioid is a strong pain medication. It is only availab le by prescription for moderate to severe pain. Usually these medications are u sed for only a short time to treat pain, but sometimes will be prescribed for lo nger. Talk with your doctor or nurse about how long they expect you to need thi s medication. When used the right way, opioids are safe and effective medications to treat you r pain, even when used for a long time. Yet, when used in the wrong way, opioid s can be dangerous for you or others. Opioids do not work for everyone. Most p atients do not get full relief of their pain from opioid medication; full relief of your pain may not be possible. For your safety, we ask you to follow these instructions: *Only take your opioid medication as prescribed. If your pain is not controlled with the prescribed dose, or the medication is not lasting long enough, call yo doctor. *Do not break or crush your opioid medication unless your doctor or pharmacist s ays you can. With certain medications, this can be dangerous, and may cause stefan th. *Never share your medications with others, even if they appear to have a good re ason. Never take someone else's pain medication-this is dangerous, and illegal (a crime). Overdoses and deaths have occurred. *Keep your opioid medications safe, as you would with overton, in a lock box or sim ilar container. *Make sure your opioids are going to be secure, especially if you are around chi ldren or teens. *Talk with your doctor or pharmacist before you take other medications. *Avoid driving, operating machinery, or drinking alcohol while taking opioid sheri n medication. This may be unsafe. Current Discharge Medication List START taking these medications Details oxyCODone (ROXICODONE) 5 mg tablet Take 1-2 Tabs by mouth every 4 hours as neede d for Pain Qty: 30 Tab, Refills: 0 PRESCRIPTION TYPE: Print Associated Diagnoses: Wound dehiscence CONTINUE these medications which have NOT CHANGED Details HYDROmorphone (DILAUDID) 2 mg tablet Take 1 Tab by mouth every 3 hours as needed Qty: 60 Tab, Refills: 0 PRESCRIPTION TYPE: Print lidocaine (LIDODERM) 5 % topical patch Apply to affected area for 12 hours, then remove for 12 hours. Qty: 30 Patch, Refills: 0 PRESCRIPTION TYPE: Normal senna/docusate (SENOKOT-S) 8.6/50 mg tablet Take 1 Tab by mouth twice daily. Qty: 60 Tab, Refills: 0 PRESCRIPTION TYPE: Normal clonazePAM (KLONOPIN) 1 mg tablet Take 1 mg by mouth at bedtime daily. PRESCRIPTION TYPE: Historical Med diazepam (VALIUM) 5 mg tablet Take 0.5-1 Tabs by mouth every 6 hours as needed. Qty: 30 Tab, Refills: 0 PRESCRIPTION TYPE: Print STOP taking these medications levofloxacin (LEVAQUIN) 500 mg tablet silver sulfADIAZINE (SILVADENE) 1 % topical cream oxyCODone-acetaminophen (PERCOCET; ENDOCET; ROXICET) 5-325 mg tablet acetaminophen (TYLENOL) 500 mg tablet Signed: Rufino Olmstead DO 09/08/2013 cc: Primary Care Physician: Gildardo Craig Verified Referring physicians: Additional provider(s): [employer] SAL[employer] CONSULTANT documented in this encounter Medications at Time [...] tablet daily. documented as of this encounter Progress Notes * Vanessa Lopez RN - 09/08/2013 3:58 PM OUTSIDE [employer] SAL[employer] CONSULTANT Pt verbalized understanding of dc instructions. PIV removed with cannula attach ed. Pt educated on portable wound vac, pt verbalized understanding. Pt to pick prescriptions up at outside pharmacy. [employer]ES CONSULTANT * Dania So MD - 09/08/2013 7:42 AM OUTSIDE [employer]AR SALES CONSULTANT A/P 53 yo M with ventral hernia repair s/p mesh placement. Now with drainage an d erythema at wound site with fatigue and chills Continue zosyn, intraop cultures with MSSA WBC 5.0 Encourage IS, OOBTC and ambulation NCM for home wound vac, awaiting approval Will change vac today Diabetic diet with High dose SSI, A1c [address] Ferguson S: No acute events. Tolerating diet. O: Filed Vitals: 09/07/13 1536 09/07/13 1933 09/07/13 2313 09/08/13 0254 BP: 122/78 121/72 115/74 107/63 Pulse: 84 84 71 60 Temp: 36.8 C (98.2 F) 36.9 C (98.5 F) 36.4 C (97.6 F) 36.7 C (98 F) Height: Weight: SpO2: 94% 95% 97% 91% Gen: alert, NAD CV: reg rate Resp: clear Abd: wound vac in place to suction with minimal output Ext: thin, warm `Hemogram Lab Results Component Value Date/Time WBC 5.0 09/08/2013 5:29 AM RBC 4.27* 09/08/2013 5:29 AM HGB 12.8* 09/08/2013 5:29 AM HCT 38.2* 09/08/2013 5:29 AM MCV 89.6 09/08/2013 5:29 AM MCH 30.0 09/08/2013 5:29 AM MCHC 33.5 09/08/2013 5:29 AM RDW 12.4 09/08/2013 5:29 AM PLTCT 199 09/08/2013 5:29 AM MPV 8.0 09/08/2013 5:29 AM Comprehensive Metabolic Profile Lab Results Component Value Date/Time NA 138 09/08/2013 5:29 AM K 3.7 09/08/2013 5:29 AM CL 101 09/08/2013 5:29 AM CO2 33* 09/08/2013 5:29 AM GAP 4* 09/08/2013 5:29 AM BUN 13 09/08/2013 5:29 AM CR 0.99 09/08/2013 5:29 AM GLU 115* 09/08/2013 5:29 AM Lab Results Component Value Date/Time CA 9.1 09/08/2013 5:29 AM PO4 3.2 09/08/2013 5:29 AM GFR >60 09/08/2013 5:29 AM GFRAA >60 09/08/2013 5:29 AM Dania So MD [employer]SULTANT * Dania So MD - 09/07/2013 7:10 AM OUTSIDE [employer]AR SALES CONSULTANT A/P 53 yo M with ventral hernia repair s/p mesh placement. Now with drainage an d erythema at wound site with fatigue and chills Continue zosyn, intraop cultures with MSSA WBC 6.2 Encourage IS, OOBTC and ambulation NCM for home wound vac, awaiting approval Diabetic diet with High dose SSI, A1c [address] Ferguson S: Some abdominal pain. Denies nausea. Passing flatus and having BM O: Filed Vitals: 09/06/13 2025 09/06/13 2245 09/06/13 2300 09/07/13 0415 BP: 134/84 114/68 120/85 Pulse: 66 67 72 Temp: 36.1 C (96.9 F) 36.5 C (97.7 F) 36.8 C (98.2 F) Height: Weight: SpO2: 95% 88% 95% 96% Gen: alert, NAD CV: reg rate Resp: clear Abd: wound vac in place to suction with minimal output Ext: thin, warm `Hemogram Lab Results Component Value Date/Time WBC 6.2 09/07/2013 5:14 AM RBC 4.41 09/07/2013 5:14 AM HGB 13.1* 09/07/2013 5:14 AM HCT 39.3* 09/07/2013 5:14 AM MCV 89.0 09/07/2013 5:14 AM MCH 29.7 09/07/2013 5:14 AM MCHC 33.4 09/07/2013 5:14 AM RDW 12.5 09/07/2013 5:14 AM PLTCT 222 09/07/2013 5:14 AM MPV 8.0 09/07/2013 5:14 AM Comprehensive Metabolic Profile Lab Results Component Value Date/Time NA 137 09/07/2013 5:14 AM K 4.1 09/07/2013 5:14 AM CL 101 09/07/2013 5:14 AM CO2 31* 09/07/2013 5:14 AM GAP 5* 09/07/2013 5:14 AM BUN 12 09/07/2013 5:14 AM CR 0.85 09/07/2013 5:14 AM GLU 190* 09/07/2013 5:14 AM Lab Results Component Value Date/Time CA 9.2 09/07/2013 5:14 AM PO4 2.1 09/07/2013 5:14 AM GFR >60 09/07/2013 5:14 AM GFRAA >60 09/07/2013 5:14 AM Dania So MD [employer]ANT * Ariella Marie, GHAZALA - 09/06/2013 7:45 PM CDT Blood sugar 295. Pt ready to eat dinner. Reported to Dr. Martinez. Order to recheck blood sugar at 2100 and follow insulin sliding scale at that time. * Rufino Olmstead DO - 09/06/2013 7:23 AM CDT General Progress Note Name: Jarett Bennett Today's Date: 09/06/2013 Admission Date: 08/30/2013 LOS: 7 days Assessment/Plan: Active Problems: S/P repair of ventral hernia 53 yo M with ventral hernia repair s/p mesh placement with wound vac in place 2/ 2 erythema and drainage at incision site Neuro: Pain well controlled with PO pain meds and lidoderm patches CV: No active issues- will continue to monitor Pulm: No active issues- will continue to monitor Abd: wound vac changed yesterday with good granulation tissue noted. Will be dis charged home with wound vac : no active issues Endo: Uncontrolled glucose. Continue high dose insulin scale. Will recommend p atient follow up with PCP for further evaluation and management Heme/ID: continue Zosyn until discharge FEN: Tolerating ADA diet, replace lytes prn Proph: Lovenox for DVT proph Dispo: Possible discharge home today. Will work with case management to assist in arrangement of home wound vac supplies. Findings and plan discussed with and directed by Dr. Ferguson Subjective Jarett Bennett is a 53 y.o. male. No acute issues over night. Patient had woun d vac changed yesterday with good granulation tissue noted. Patient states that he is tolerating a ADA diet with no issues and states that pain is well control led. Patient denies fevers, chills, nausea, vomiting, voiding with no issues an d having regular bowel movements. Medications Scheduled Meds: enoxaparin (LOVENOX) syringe 40 mg 40 mg Subcutaneous QDAY(21) senna/docusate (SENOKOT-S) tablet 1 Tab 1 Tab Oral BID insulin aspart (NOVOLOG) flexPEN 0-28 Units 0-28 Units Subcutaneous 5 X Day lidocaine (LIDODERM) 5 % topical patch 1-2 Patch 1-2 Patch Topical QDAY clonazePAM (KLONOPIN) tablet 1 mg 1 mg Oral QHS piperacillin/tazobactam (ZOSYN) 3.375 g/50 mL iso-osmotic IVPB 3.375 g Intraven ous Q6H* Continuous Infusions: PRN and Respiratory Meds:oxyCODone Q4H PRN, acetaminophen Q6H PRN, morphine inj ection syringe Q1H PRN, diazepam Q6H PRN, ondansetron Q6H PRN Objective Vital Signs: Last Filed Vital Signs: 24 Samantha r Range BP: 115/82 mmHg (09/06 340) Temp: 36.5 C (97.7 F) (09/06 340) Pulse: 67 (09/06 340) Respirations: 18 PER MINUTE (09/06 340) SpO2: 98 % (09/06 340) O2 Delivery: None (Room Air) (09/06 340) BP: (111-128)/(76-90) Temp: [36.5 C (97.7 F)-37 C (98.6 F)] Pulse: [67-84] Respirations: [16 PER MINUTE-18 PER MINUTE] SpO2: [94 %-99 %] O2 Delivery: [-] Intensity Pain Scale 0-10 (Pain 1): 6 (09/05/13 1048) Filed Vitals: 08/30/13 2114 08/30/13 2358 Weight: 107.956 kg (238 lb) 107.956 kg (238 lb) Intake/Output Summary: (Last 24 hours) Intake/Output Summary (Last 24 hours) at 09/06/13 0723 Last data filed at 09/06/13 0600 Gross per 24 hour Intake 970 ml Output 1875 ml Net -905 ml Stool Occurrence: 1 Physical Exam Gen: alert, NAD CV: reg rate Resp: clear Abd: wound vac in place to suction with minimal output Ext: thin, warm Lab Review 24-hour labs: Results for orders placed during the hospital encounter of 08/30/13 (from the [facility] 24 hour(s)) POC GLUCOSE Collection Time 09/05/13 8:29 AM Component Value Range Glucose, POC 184 (*) 70 - 100 MG/DL POC GLUCOSE Collection Time 09/05/13 1:58 PM Component Value Range Glucose, POC 236 (*) 70 - 100 MG/DL POC GLUCOSE Collection Time 09/05/13 4:01 PM Component Value Range Glucose, POC 232 (*) 70 - 100 MG/DL POC GLUCOSE Collection Time 09/05/13 4:23 PM Component Value Range Glucose, POC 254 (*) 70 - 100 MG/DL POC GLUCOSE Collection Time 09/05/13 9:16 PM Component Value Range Glucose, POC 262 (*) 70 - 100 MG/DL POC GLUCOSE Collection Time 09/06/13 3:39 AM Component Value Range Glucose, POC 295 (*) 70 - 100 MG/DL CBC AND DIFF Collection Time 09/06/13 5:25 AM Component Value Range White Blood Cells 4.8 4.5 - 11.0 K/UL RBC 4.09 (*) 4.4 - 5.5 M/UL Hemoglobin 12.3 (*) 13.5 - 16.5 GM/DL Hematocrit 36.7 (*) 40 - 50 % MCV 89.8 80 - 100 FL MCH 30.1 26 - 34 PG MCHC 33.5 32.0 - 36.0 G/DL RDW 12.3 11 - 15 % Platelet Count 204 150 - 400 K/UL MPV 8.4 7 - 11 FL Neutrophils 43 41 - 77 % Lymphocytes 41 24 - 44 % Monocytes 11 4 - 12 % Eosinophils 4 0 - 5 % Basophils 1 0 - 2 % Absolute Neutrophil Count 2.10 1.8 - 7.0 K/UL Absolute Lymph Count 2.00 1.0 - 4.8 K/UL Absolute Monocyte Count 0.50 0 - 0.80 K/UL Absolute Eosinophil Count 0.20 0 - 0.45 K/UL Absolute Basophil Count 0.00 0 - 0.20 K/UL Rufino Olmstead DO Pager [phone] [employer] SAL[employer]SULTANT * Kathrine Louis - 09/05/2013 8:09 PM CDT Assumed care at 1900. Patient resting in bed. Pain controlled. Wound vac intact and draining. Tolerating po intake; diuresing.COntact isolation maintained. Cont to monitor, * Dania So MD - 09/05/2013 7:22 AM CDT A/P 53 yo M with ventral hernia repair s/p mesh placement. Now with drainage an d erythema at wound site with fatigue and chills Wound vac take down today Intraop tissue cultures negative to date, other wound surface cultures MSSA Afebrile, wbc 4.2 Pain control Ambulation Discussed with Dr. Ferguson S: Doing well, burning pain on inferior right side of wound vac O: Filed Vitals: 09/04/13 0830 09/04/13 1205 09/04/13 20209/04/13 2315 BP: 110/70 111/69 130/92 128/83 Pulse: 73 79 78 70 Temp: 36.6 C (97.9 F) 36.8 C (98.3 F) 37.2 C (98.9 F) 36.8 C (98.2 F) Height: Weight: SpO2: 96% 94% 92% 97% Gen: alert, NAD CV: reg rate Resp: clear Abd: wound vac in place to suction with minimal output Ext: thin, warm `Hemogram Lab Results Component Value Date/Time WBC 4.2* 09/05/2013 5:18 AM RBC 4.12* 09/05/2013 5:18 AM HGB 12.4* 09/05/2013 5:18 AM HCT 36.9* 09/05/2013 5:18 AM MCV 89.7 09/05/2013 5:18 AM MCH 30.1 09/05/2013 5:18 AM MCHC 33.6 09/05/2013 5:18 AM RDW 12.5 09/05/2013 5:18 AM PLTCT 194 09/05/2013 5:18 AM MPV 8.3 09/05/2013 5:18 AM Comprehensive Metabolic Profile Lab Results Component Value Date/Time NA 139 09/05/2013 5:18 AM K 3.8 09/05/2013 5:18 AM CL 102 09/05/2013 5:18 AM CO2 32* 09/05/2013 5:18 AM GAP 5* 09/05/2013 5:18 AM BUN 13 09/05/2013 5:18 AM CR 0.88 09/05/2013 5:18 AM GLU 200* 09/05/2013 5:18 AM Lab Results Component Value Date/Time CA 8.9 09/05/2013 5:18 AM PO4 3.4 09/05/2013 5:18 AM GFR >60 09/05/2013 5:18 AM GFRAA >60 09/05/2013 5:18 AM Dania So MD [employer] * Dania So MD - 09/04/2013 12:52 PM CDT A/P 53 yo M with ventral hernia repair s/p mesh placement. Now with drainage an d erythema at wound site with fatigue and chills Will change wound vac today Continue antibiotics: no growth on intraop tissue cultures x 2 days Continue insulin, high dose sliding scale Discussed with Dr. Ferguson S: No acute events. Doing well. Tolerating diet. O: Filed Vitals: 09/04/13 0020 09/04/13 0343 09/04/13 0830 09/04/13 1205 BP: 94/56 106/72 110/70 111/69 Pulse: 64 67 73 79 Temp: 36.7 C (98 F) 36.7 C (98.1 F) 36.6 C (97.9 F) 36.8 C (98.3 F) Height: Weight: SpO2: 93% 93% 96% 94% Gen: alert, NAD CV: reg rate Resp: clear Abd: wound vac in place to suction with minimal output Ext: thin, warm `Hemogram Lab Results Component Value Date/Time WBC 4.6 09/04/2013 5:40 AM RBC 4.00* 09/04/2013 5:40 AM HGB 12.1* 09/04/2013 5:40 AM HCT 35.7* 09/04/2013 5:40 AM MCV 89.2 09/04/2013 5:40 AM MCH 30.2 09/04/2013 5:40 AM MCHC 33.9 09/04/2013 5:40 AM RDW 12.3 09/04/2013 5:40 AM PLTCT 189 09/04/2013 5:40 AM MPV 8.0 09/04/2013 5:40 AM Comprehensive Metabolic Profile Lab Results Component Value Date/Time NA 138 09/04/2013 5:40 AM K 3.8 09/04/2013 5:40 AM CL 101 09/04/2013 5:40 AM CO2 33* 09/04/2013 5:40 AM GAP 4* 09/04/2013 5:40 AM BUN 14 09/04/2013 5:40 AM CR 1.01 09/04/2013 5:40 AM GLU 195* 09/04/2013 5:40 AM Lab Results Component Value Date/Time CA 8.7 09/04/2013 5:40 AM PO4 2.7 09/04/2013 5:40 AM GFR >60 09/04/2013 5:40 AM GFRAA >60 09/04/2013 5:40 AM Dania So MD [employer] * Hai Mckeon, PHARMD - 09/03/2013 10:00 PM CDT Pharmacy Vancomycin Note Subjective: Jarett Bennett is a 53 y.o. male being treated for possible wound infection. Objective: This patient is currently on Vancomycin 2000 mg IV q12h. Day of Vancomycin therapy: 4 Cultures: 09/01 abd cx: Staph aureus, White Blood Cells Date/Time Value Range Status 09/03/2013 0454 4.8 4.5 - 11.0 K/UL Final 09/02/2013 0505 6.0 4.5 - 11.0 K/UL Final 09/01/2013 0500 5.4 4.5 - 11.0 K/UL Final Creatinine Date/Time Value Range Status 09/03/2013 0454 0.92 0.4 - 1.24 MG/DL Final 09/02/2013 0505 0.81 0.4 - 1.24 MG/DL Final 09/01/2013 0500 0.86 0.4 - 1.24 MG/DL Final Blood Urea Nitrogen Date/Time Value Range Status 09/03/2013 0454 11 7 - 25 MG/DL Final Estimated CrCl: ~120 mL/min Intake/Output Summary (Last 24 hours) at 09/03/13 2200 Last data filed at 09/03/13 1900 Gross per 24 hour Intake 480 ml Output 2650 ml Net -2170 ml Drug Levels: Vancomycin Trough Date/Time Value Range Status 09/03/2013 2035 11.5 10.0 - 20.0 MCG/ML Final Assessment: Target levels for this patient: Trough 10-15. Evaluation of level(s): AM dose was delayed by over 2 hrs given no access, confo unds trough data for tonight (may not represent true steady state) but level w/i n goal and appears reasonable to continue current regimen. May need to consider repeat level w/in a few days to monitor for any accumulation. Plan: 1. Continue Vancomycin 2 gm q12 2. Next scheduled level(s): TBD. 3. Pharmacy will continue to monitor and adjust therapy as needed. Hai Mckeon PHARMD, BCPS 09/03/2013 * Dania So MD - 09/03/2013 5:53 PM CDT A/P 53 yo M with ventral hernia repair s/p mesh placement. Now with drainage an d erythema at wound site with fatigue and chills Resume diet Encourage ambulation Wound vac to suction, plan to change tomorrow Continue antibiotics: no growth on intraop tissue cultures Discussed with Dr. Ferguson S: Doing well post op. Still with some burning pain. O: Filed Vitals: 09/03/13 0347 09/03/13 0833 09/03/13 1133 09/03/13 1532 BP: 109/74 114/76 124/76 107/65 Pulse: 72 83 93 84 Temp: 36.8 C (98.3 F) 36.8 C (98.2 F) 37.6 C (99.7 F) 36.6 C (97.9 F) Height: Weight: SpO2: 95% 91% 91% 94% Gen: alert, NAD CV: reg rate Resp: clear Abd: wound vac in place to suction with minimal output Ext: thin, warm `Hemogram Lab Results Component Value Date/Time WBC 4.8 09/03/2013 4:54 AM RBC 4.11* 09/03/2013 4:54 AM HGB 12.2* 09/03/2013 4:54 AM HCT 36.8* 09/03/2013 4:54 AM MCV 89.4 09/03/2013 4:54 AM MCH 29.6 09/03/2013 4:54 AM MCHC 33.1 09/03/2013 4:54 AM RDW 12.2 09/03/2013 4:54 AM PLTCT 213 09/03/2013 4:54 AM MPV 8.5 09/03/2013 4:54 AM Comprehensive Metabolic Profile Lab Results Component Value Date/Time NA 138 09/03/2013 4:54 AM K 3.9 09/03/2013 4:54 AM CL 100 09/03/2013 4:54 AM CO2 32* 09/03/2013 4:54 AM GAP 6* 09/03/2013 4:54 AM BUN 11 09/03/2013 4:54 AM CR 0.92 09/03/2013 4:54 AM GLU 155* 09/03/2013 4:54 AM Lab Results Component Value Date/Time CA 8.5* 09/03/2013 4:54 AM PO4 3.7 09/03/2013 4:54 AM GFR >60 09/03/2013 4:54 AM GFRAA >60 09/03/2013 4:54 AM Dania So MD [employer] * Wilbert Patricia RN - 09/03/2013 10:41 AM CDT Infection Prevention staff was able to verify that Mr. 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 The patient's chart has been flagged for MRSA and he remains in contact isol ation. Please contact Infection Prevention at [phone] or [phone] for questions. Thank you. * Wilbert Patricia RN - 09/03/2013 10:01 AM CDT Per patient he has a history of MRSA in wound from outside facility. Recommend screening when off antibiotics to determine need for continued isolati on. Also, Infection Prevention staff following up with outside facility to veri fy MRSA history. In the interim patient has been placed in contact isolation for hx of MRSA. Please contact Infection Prevention at [phone] for questions. Thank you. * Kristy Pagan RN - 09/02/2013 11:40 PM CDT Assumed care of pt. Pt resting quietly at this time. No changes noted from previ ous RN's assessment. * Hesham Sorto RN - 09/02/2013 4:30 PM CDT Pt arrived from OR and transferred to bed. Pain is minimal, call light within re ach. * Eber Damian, - 09/02/2013 3:49 PM CDT Department of Anesthesiology Post-Anesthesia Evaluation Name: Jarett Bennett is a 53 y.o. male. :1960 Operative Procedure: Exploration of wound, washout and placement of vac Surgeon: Phyllis Surgery Date: 09/02/2013 Anesthesia: Gen Allergies No Known Allergies Diagnostic Tests Results for orders placed during the hospital encounter of 08/30/13 (from the [facility] 24 hour(s)) POC GLUCOSE Collection Time 09/01/13 4:32 PM Component Value Range Glucose, POC 200 (*) 70 - 100 MG/DL POC GLUCOSE Collection Time 09/01/13 9:05 PM Component Value Range Glucose, POC 255 (*) 70 - 100 MG/DL POC GLUCOSE Collection Time 09/02/13 3:01 AM Component Value Range Glucose, POC 345 (*) 70 - 100 MG/DL CBC AND DIFF Collection Time 09/02/13 5:05 AM Component Value Range White Blood Cells 6.0 4.5 - 11.0 K/UL RBC 4.15 (*) 4.4 - 5.5 M/UL Hemoglobin 12.6 (*) 13.5 - 16.5 GM/DL Hematocrit 37.0 (*) 40 - 50 % MCV 89.2 80 - 100 FL MCH 30.3 26 - 34 PG MCHC 34.0 32.0 - 36.0 G/DL RDW 12.5 11 - 15 % Platelet Count 196 150 - 400 K/UL MPV 8.9 7 - 11 FL Neutrophils 55 41 - 77 % Lymphocytes 33 24 - 44 % Monocytes 10 4 - 12 % Eosinophils 2 0 - 5 % Basophils 0 0 - 2 % Absolute Neutrophil Count 3.30 1.8 - 7.0 K/UL Absolute Lymph Count 2.00 1.0 - 4.8 K/UL Absolute Monocyte Count 0.60 0 - 0.80 K/UL Absolute Eosinophil Count 0.10 0 - 0.45 K/UL Absolute Basophil Count 0.00 0 - 0.20 K/UL BASIC METABOLIC PANEL Collection Time 09/02/13 5:05 AM Component Value Range Sodium 135 (*) 137 - 147 MMOL/L Potassium 3.7 3.5 - 5.1 MMOL/L Chloride 98 98 - 110 MMOL/L CO2 32 (*) 21 - 30 MMOL/L Anion Gap 5 (*) 8 - 12 Glucose 271 (*) 70 - 100 MG/DL Blood Urea Nitrogen 13 7 - 25 MG/DL Creatinine 0.81 0.4 - 1.24 MG/DL Calcium 8.5 (*) 8.6 - 10.3 MG/DL eGFR Non >60 >60 ML/MIN/1.73 SQM eGFR >60 >60 ML/MIN/1.73 SQM MAGNESIUM Collection Time 09/02/13 5:05 AM Component Value Range Magnesium 1.7 1.6 - 2.6 MG/DL PHOSPHORUS Collection Time 09/02/13 5:05 AM Component Value Range Phosphorus 2.2 2.0 - 4.0 MG/DL POC GLUCOSE Collection Time 09/02/13 8:09 AM Component Value Range Glucose, POC 278 (*) 70 - 100 MG/DL TYPE & CROSSMATCH/HOLD Collection Time 09/02/13 8:50 AM Component Value Range Units Ordered 2 Crossmatch Expires 09/05/2013 Record Check 2ND TYPE REQUIRED ABO/RH(D) A POS Antibody Screen NEG Electronic Crossmatch YES BLOOD TYPE CONFIRMATION - ORDER ONLY IF REQUESTED BY LAB Collection Time 09/02/13 10:00 AM Component Value Range ABO/RH(D) A POS POC GLUCOSE Collection Time 09/02/13 10:36 AM Component Value Range Glucose, POC 72 70 - 100 MG/DL POC GLUCOSE Collection Time 09/02/13 11:19 AM Component Value Range Glucose, POC 119 (*) 70 - 100 MG/DL POC GLUCOSE Collection Time 09/02/13 2:01 PM Component Value Range Glucose, POC 134 (*) 70 - 100 MG/DL Evaluation: Post-Anesthesia Vitals: BP: 112/62 mmHg (09/02 1530) Temp: 37.1 C (98.8 F) (09/02 1349) Pulse: 83 (09/02 1530) Respirations: 13 PER MINUTE (09/02 1530) SpO2: 92 % (09/02 1530) O2 Delivery: Nasal Cannula (09/02 1415) Mental Status: Alert Airway: Patent, Spontaneously supports airway Respiratory Function:Breath sounds: clear, equal bilaterally Cardiovascular Functions: Hemodynamically Stable Pain: Analgesia Adequate Analgesics received in PACU include: Fentanyl 200 mcg Post-op Analgesia RX: IV/PO meds Nausea/Vomiting: None Postoperative Hydration: Adequate Temperature: 36.1C-38.4C Other: N/A Anesthetic Complications: None Assessment: Jarett Bennett is a 53 y.o. male now post-anesthesia. PARS 08/14 Meets criteria for discharge from PACU at 1535 Evaluation by: Eber Damian DO Date: 09/02/2013 * Dania So MD - 09/02/2013 12:23 PM CDT A/P 53 yo M with ventral hernia repair s/p mesh placement. Now with drainage an d erythema at wound site with fatigue and chills To OR for removal of mesh, placement of synthetic Consent obtained NPO for OR Discussed with Dr. Ferguson S: No acute events. Stable abdominal pain O: Filed Vitals: 09/02/13 0900 09/02/13 1000 09/02/13 1031 09/02/13 1159 BP: 115/77 115/77 112/73 118/64 Pulse: 92 92 85 90 Temp: 36.3 C (97.4 F) 36.3 C (97.4 F) 36.9 C (98.4 F) Height: Weight: SpO2: 94% 93% 95% 93% Gen: alert, NAD CV: reg rate Resp: clear Abd: wound with erythema and thicker drainage, tender to palpation, no rebound Ext: thin, warm `Hemogram Lab Results Component Value Date/Time WBC 6.0 09/02/2013 5:05 AM RBC 4.15* 09/02/2013 5:05 AM HGB 12.6* 09/02/2013 5:05 AM HCT 37.0* 09/02/2013 5:05 AM MCV 89.2 09/02/2013 5:05 AM MCH 30.3 09/02/2013 5:05 AM MCHC 34.0 09/02/2013 5:05 AM RDW 12.5 09/02/2013 5:05 AM PLTCT 196 09/02/2013 5:05 AM MPV 8.9 09/02/2013 5:05 AM Comprehensive Metabolic Profile Lab Results Component Value Date/Time NA 135* 09/02/2013 5:05 AM K 3.7 09/02/2013 5:05 AM CL 98 09/02/2013 5:05 AM CO2 32* 09/02/2013 5:05 AM GAP 5* 09/02/2013 5:05 AM BUN 13 09/02/2013 5:05 AM CR 0.81 09/02/2013 5:05 AM GLU 271* 09/02/2013 5:05 AM Lab Results Component Value Date/Time CA 8.5* 09/02/2013 5:05 AM PO4 2.2 09/02/2013 5:05 AM GFR >60 09/02/2013 5:05 AM GFRAA >60 09/02/2013 5:05 AM Dania So MD [employer]SULTANT * Pascale Joyner RN - 09/02/2013 12:16 PM CDT Report received from GHAZALA Arias. * Pascale Joyner RN - 09/02/2013 11:31 AM CDT Report received from GHAZALA Dahl. Awaiting pt arrival. Report given to GHAZALA Arias. * Bren Green RT - 09/01/2013 8:58 PM CDT RESPIRATORY THERAPY ADULT PROTOCOL EVALUATION RESPIRATORY PROTOCOL PLAN Medications Note: If indicated by protocol, medication orders will be placed by therapist. Procedures Incentive Spirometry: Patient instruction Oxygen/Humidity: Discontinued Monitoring: Discontinued PATIENT EVALUATION RESULTS Chart Review * Pulmonary Hx: No pulmonary diagnosis or no smoking hx * Surgical Hx: Lower abdominal or spinal surgery/injury (LE) * Chest X-Ray: Clear or not available * PFT/Oxygenation: FEV1 >80%, PEFR >80%, or IC >1.5 L; PaO2 >80 or SpO2 >95% RA; or chronic CO2 retention (CO2) Patient Assessment * Respiratory Pattern: Regular pattern and rate * Breath Sounds: Clear to auscultation * Cough / Sputum: Strong, spontaneous cough or nonproductive * Mental Status: Alert, oriented, and cooperative * Activity Level: Ambulatory with assistance Priority Index Total Points: 3 Points * Priority Index: 1 PRIORITY INDEX GUIDELINES* Priority Points 1 0-9 points 2 9-18 points 3 > 18 points + Pulm Dx or Home Rx *Higher points indicate higher acuity. Therapist: BREN GREEN RT Date: 09/01/2013 [place] AC=Airway clearance AM=Aerosolized medication BA=Waldron aerosol DB&C=Deep breathe & cough FEV1=Forced expiratory volume in first second) IC=Inspiratory capacity LE=Lung expansion MDI=Metered dose inhaler Neb=Nebulizer O2=Oxygen Oxim=Oximetry PEFR=Peak expiratory flow rate ORGANISATION AND METHODS ANALYST=Rapid Response Team * Shanita Funes PHARMD - 09/01/2013 4:51 PM CDT Pharmacy Vancomycin Note Subjective: Jarett Bennett is a 53 y.o. male being treated for possible wound infection. Objective: This patient is currently on Vancomycin 1500 mg IV q12h. Day of Vancomycin therapy: 2 Cultures: 09/01 abd abscess: rare GPC, Temp range (Past 24 hours): AF, WBC 5.4 White Blood Cells Date/Time Value Range Status 09/01/2013 0500 5.4 4.5 - 11.0 K/UL Final 08/31/2013 0728 5.8 4.5 - 11.0 K/UL Final 08/30/2013 2150 7.4 4.5 - 11.0 K/UL Final Creatinine Date/Time Value Range Status 09/01/2013 0500 0.86 0.4 - 1.24 MG/DL Final 08/31/2013 0728 0.68 0.4 - 1.24 MG/DL Final 08/30/2013 2150 0.80 0.4 - 1.24 MG/DL Final Blood Urea Nitrogen Date/Time Value Range Status 09/01/2013 0500 13 7 - 25 MG/DL Final Estimated CrCl: 133 mL/min Intake/Output Summary (Last 24 hours) at 09/01/13 1651 Last data filed at 09/01/13 0900 Gross per 24 hour Intake 2064.56 ml Output 2850 ml Net -785.44 ml UOP: Drug Levels: Vancomycin Trough Date/Time Value Range Status 09/01/2013 1510 5.7* 10.0 - 20.0 MCG/ML Final Assessment: Target levels for this patient: Trough 10-15. Evaluation of level(s): VT drawn appropriately prior to 4th and is sub-therapeut ic. Will increase regimen to 2000mg IV q12h with repeat trough Plan: 1. Change Vancomycin to 2000mg IV q12h 2. Next scheduled level(s): VT prior to 4th 3. Pharmacy will continue to monitor and adjust therapy as needed. Shanita Funes, PHARMD 09/01/2013 * Ping Armenta RD - 09/01/2013 4:02 PM CDT CLINICAL NUTRITION Diabetic Assessment of Patient: Patient was on Glucose to Goal list with elevated blood sugars. His needs are es timated at: 9817-6795 kcal/day, and 132 g protein/day. No HbA1c available. His c urrent diet order is appropriate. He is on insulin. I educated him on a 75g/meal consistent carb diet, and provided him with a handout which includes a sample m enu. I also provided him with a carb counting menu, and explained how to use it. Ping Armenta, ROBY #[id number]. * Dania So MD - 09/01/2013 7:53 AM CDT A/P 53 yo M with ventral hernia repair s/p mesh placement. Now with drainage an d erythema at wound site with fatigue and chills Continue Vanc/zosyn Increase to High dose sliding scale Change to ADA diet SLIV Send fluid for culture Surgical planning pending culture results Discussed with Dr. Ferguson S: Feels a little better. Still with abdominal pain. Drainage decreased O: Filed Vitals: 08/31/13 2018 08/31/13 2315 09/01/13 0354 09/01/13 0739 BP: 103/61 113/59 120/78 Pulse: 82 83 79 75 Temp: 36.8 C (98.3 F) 37.1 C (98.8 F) 36.9 C (98.5 F) Height: Weight: SpO2: 95% 92% 97% 94% Gen: alert, NAD CV: reg rate Resp: clear Abd: wound with erythema and thicker drainage, tender to palpation, no rebound Ext: thin, warm `Hemogram Lab Results Component Value Date/Time WBC 5.4 09/01/2013 5:00 AM RBC 4.28* 09/01/2013 5:00 AM HGB 12.6* 09/01/2013 5:00 AM HCT 38.0* 09/01/2013 5:00 AM MCV 88.8 09/01/2013 5:00 AM MCH 29.5 09/01/2013 5:00 AM MCHC 33.3 09/01/2013 5:00 AM RDW 12.2 09/01/2013 5:00 AM PLTCT 171 09/01/2013 5:00 AM MPV 9.5 09/01/2013 5:00 AM Comprehensive Metabolic Profile Lab Results Component Value Date/Time NA 134* 09/01/2013 5:00 AM K 3.9 09/01/2013 5:00 AM CL 100 09/01/2013 5:00 AM CO2 28 09/01/2013 5:00 AM GAP 6* 09/01/2013 5:00 AM BUN 13 09/01/2013 5:00 AM CR 0.86 09/01/2013 5:00 AM GLU 333* 09/01/2013 5:00 AM Lab Results Component Value Date/Time CA 8.3* 09/01/2013 5:00 AM PO4 2.3 09/01/2013 5:00 AM GFR >60 09/01/2013 5:00 AM GFRAA >60 09/01/2013 5:00 AM Dania So MD [employer] * Hesham Sorto, RN - 08/31/2013 4:59 PM CDT Incorrect Pt. * Hai Mckeon PHARMD - 08/31/2013 1:31 PM CDT Pharmacy Vancomycin Note Subjective: Jarett Bennett is a 53 y.o. male being treated for possible wound infection. Objective: This patient is starting on Vancomycin 1500 mg IV q12h. Day of Vancomycin therapy: 1 Additional Abx: zosyn White Blood Cells Date/Time Value Range Status 08/31/2013 0728 5.8 4.5 - 11.0 K/UL Final 08/30/2013 2150 7.4 4.5 - 11.0 K/UL Final Creatinine Date/Time Value Range Status 08/31/2013 0728 0.68 0.4 - 1.24 MG/DL Final 08/30/2013 2150 0.80 0.4 - 1.24 MG/DL Final Blood Urea Nitrogen Date/Time Value Range Status 08/31/2013 0728 12 7 - 25 MG/DL Final Estimated CrCl: >100 mL/min Intake/Output Summary (Last 24 hours) at 08/31/13 1331 Last data filed at 08/31/13 1300 Gross per 24 hour Intake 2851.6 ml Output 2700 ml Net 151.6 ml Assessment: Target levels for this patient: Trough 10-15. Evaluation of level(s): Agree w/ initial dose given age/wt/renal function. Pharm acy will follow. Plan: 1. Continue Vancomycin 1.5 gm q12 2. Next scheduled level(s): Plan prior to 4th dose. 3. Pharmacy will continue to monitor and adjust therapy as needed. Hai Mckeon PHARMD, BCPS 08/31/2013 * Ruma Epps RT - 08/31/2013 1:22 AM CDT RESPIRATORY THERAPY ADULT PROTOCOL EVALUATION RESPIRATORY PROTOCOL PLAN Medications Note: If indicated by protocol, medication orders will be placed by therapist. Procedures Incentive Spirometry: Patient instruction Oxygen/Humidity: O2 to keep SpO2 > 92% Monitoring: Pulse oximetry BID & PRN PATIENT EVALUATION RESULTS Chart Review * Pulmonary Hx: No pulmonary diagnosis or no smoking hx * Surgical Hx: Lower abdominal or spinal surgery/injury (LE) * Chest X-Ray: Clear or not available * PFT/Oxygenation: FEV1 1.0-1.5 L or PEFR <70% (AM); IC 1.25-1.5 L (LE); PaO2 <70 or SpO2 <92% RA, or FiO2 >.21 to keep SpO2 >92%, or < 24 hrs post-op (O2 & oxim) (ZO=[id number], SpO2 95% on 2 L) Patient Assessment * Respiratory Pattern: Regular pattern and rate * Breath Sounds: Clear to auscultation * Cough / Sputum: Strong, spontaneous cough or nonproductive * Mental Status: Alert, oriented, and cooperative * Activity Level: Ambulatory with assistance Priority Index Total Points: 5 Points * Priority Index: 1 PRIORITY INDEX GUIDELINES* Priority Points 1 0-9 points 2 9-18 points 3 > 18 points + Pulm Dx or Home Rx *Higher points indicate higher acuity. Therapist: Ruma Epps RT Date: 08/31/2013 [place]keon AC=Airway clearance AM=Aerosolized medication BA=Waldron aerosol DB&C=Deep breathe & cough FEV1=Forced expiratory volume in first second) IC=Inspiratory capacity LE=Lung expansion MDI=Metered dose inhaler Neb=Nebulizer O2=Oxygen Oxim=Oximetry PEFR=Peak expiratory flow rate ORGANISATION AND METHODS ANALYST=Rapid Response Team documented in this encounter H&P Notes * Fatuma Calero MD - 08/31/2013 3:52 AM CDT General Consult Note Admission Date: 08/30/2013 LOS: 1 day Assessment/Plan 53M with h/o ventral hernia repair with post operative seroma, concern for possi ble dehiscence or wound infection. - Admit to surgery - IV abx - NPO, IVF - Will follow clinically, if patient does not improve, may repeat CT scan. - Discussed with Dr. Ferguson who directed plan of care. History of Present Illness: Jarett Bennett is a 53 y.o. male with h/o ventral he rnia repair, seen in clinic yesterday for first post op visit with complaints of increased pain and drainage from wound. CT scan performed revealing seroma with intact repair and no dehiscence. Seroma was drained and patient started on an tibiotics. Patient reports that since yesterday, he has had increased pain, fev er of 103, nausea, and continued drainage from wound. Past Medical History Diagnosis Date Diabetes Past Surgical History Procedure Date Back surgery 2009 Hernia repair Knee surgery Acl reconstruction Wrist surgery History Social History Marital Status: Spouse Name: N/A Number of Children: N/A Years of Education: N/A Social History Main Topics Smoking status: Never Smoker Smokeless tobacco: Never Used Alcohol Use: No Drug Use: No Sexually Active: Not on file Other Topics Concern Not on file Social History Narrative No narrative on file Family history reviewed; non-contributory Allergies: Review of patient's allergies indicates no known allergies. Scheduled Meds: vancomycin (VANCOCIN) 1,500 mg in dextrose 5% (D5W) IVPB 1,500 mg Intravenous Q1 2H* lidocaine (LIDODERM) 5 % topical patch 1-2 Patch 1-2 Patch Topical QDAY clonazePAM (KLONOPIN) tablet 1 mg 1 mg Oral QHS vancomycin, pharmacy to manage 1 Each Service Per Pharmacy piperacillin/tazobactam (ZOSYN) 3.375 g/50 mL iso-osmotic IVPB 3.375 g Intraven ous Q6H* Continuous Infusions: sodium chloride 0.9 % infusion 125 mL/hr at 08/31/13 0100 morphine PATTERN FINISHER 55 mg/NS 55ml infusion syr (std conc)(premade) PRN and Respiratory Meds:morphine injection syringe Q1H PRN, diazepam Q6H PRN, nalOXone PRN, ondansetron Q6H PRN Review of Systems: A comprehensive review of systems was negative except for: what is mentioned in HPI Vital Signs: Last Filed in 24 hours Vital Signs: 24 hour Range BP: 117/80 mmHg (08/30 2358) Temp: 37.1 C (98.7 F) (08/30 2358) Pulse: 80 (08/31 115) Respirations: 16 PER MINUTE (08/30 2358) SpO2: 95 % (08/31 115) O2 Delivery: None (Room Air) (08/30 2358) Height: 188 cm (74") (08/30 2358) BP: (110-131)/(48-80) Temp: [37.1 C (98.7 F)-37.4 C (99.3 F)] Pulse: [80-99] Respirations: [15 PER MINUTE-21 PER MINUTE] SpO2: [92 %-99 %] O2 Delivery: [-] Physical Exam: Appears distressed, diaphoretic Tachy to 100s CTAB Abd soft, very tender throughout with voluntary guarding, particularly along mid line incision. Serous drainage from superior aspect of the wound. Surrounding erythema with mild induration. No purulence. No peripheral edema Lab/Radiology/Other Diagnostic Tests: 24-hour labs: Results for orders placed during the hospital encounter of 08/30/13 (from the [facility] 24 hour(s)) CBC AND DIFF Collection Time 08/30/13 9:50 PM Component Value Range White Blood Cells 7.4 4.5 - 11.0 K/UL RBC 4.49 4.4 - 5.5 M/UL Hemoglobin 13.6 13.5 - 16.5 GM/DL Hematocrit 40.3 40 - 50 % MCV 89.8 80 - 100 FL MCH 30.4 26 - 34 PG MCHC 33.8 32.0 - 36.0 G/DL RDW 12.3 11 - 15 % Platelet Count 195 150 - 400 K/UL MPV 9.0 7 - 11 FL Neutrophils 67 41 - 77 % Lymphocytes 20 (*) 24 - 44 % Monocytes 12 4 - 12 % Eosinophils 1 0 - 5 % Basophils 0 0 - 2 % Absolute Neutrophil Count 5.00 1.8 - 7.0 K/UL Absolute Lymph Count 1.50 1.0 - 4.8 K/UL Absolute Monocyte Count 0.90 (*) 0 - 0.80 K/UL Absolute Eosinophil Count 0.00 0 - 0.45 K/UL Absolute Basophil Count 0.00 0 - 0.20 K/UL BASIC METABOLIC PANEL Collection Time 08/30/13 9:50 PM Component Value Range Sodium 130 (*) 137 - 147 MMOL/L Potassium 3.7 3.5 - 5.1 MMOL/L Chloride 95 (*) 98 - 110 MMOL/L CO2 27 21 - 30 MMOL/L Anion Gap 8 8 - 12 Glucose 315 (*) 70 - 100 MG/DL Blood Urea Nitrogen 16 7 - 25 MG/DL Creatinine 0.80 0.4 - 1.24 MG/DL Calcium 8.6 8.6 - 10.3 MG/DL eGFR Non >60 >60 ML/MIN/1.73 SQM eGFR >60 >60 ML/MIN/1.73 SQM MAGNESIUM Collection Time 08/30/13 9:50 PM Component Value Range Magnesium 1.6 1.6 - 2.6 MG/DL PHOSPHORUS Collection Time 08/30/13 9:50 PM Component Value Range Phosphorus 2.0 2.0 - 4.0 MG/DL LACTIC ACID(LACTATE) Collection Time 08/30/13 9:50 PM Component Value Range Lactic Acid 1.8 0.5 - 2.0 MMOL/L URINALYSIS DIPSTICK Collection Time 08/30/13 11:15 PM Component Value Range Color,UA YELLOW Turbidity,UA CLEAR CLEAR-CLEAR Specific [place]-Urine 1.017 1.003 - 1.035 pH,UA 6.0 4.6 - 8.0 Protein,UA NEG NEG-NEG Glucose,UA 4+ (*) NEG-NEG Ketones,UA NEG NEG-NEG Bilirubin,UA NEG NEG-NEG Blood,UA NEG NEG-NEG Urobilinogen,UA NORMAL NORM-NORMAL Nitrite,UA NEG NEG-NEG Leukocytes,UA NEG NEG-NEG URINALYSIS, MICROSCOPIC Collection Time 08/30/13 11:15 PM Component Value Range WBCs,UA NONE 0 - 2 /HPF RBCs,UA NONE 0 - 3 /HPF MucousUA TRACE No pertinent radiology. Fatuma Calero MD Pager [phone] documented in this encounter Procedure Notes * SCANNED DOCUMENT - 09/10/2013 3:12 PM OUTS[employer] SALES CONSULTANT Associated Order(s): PROCEDURES-SCAN [employer]SULTANT * SCANNED DOCUMENT - 09/10/2013 3:12 PM OUTSIDE SOLAR SALES CONSULTANT [employer] CONSULTANT * SCANNED DOCUMENT - 09/10/2013 3:12 PM OUTSIDE SOLAR SALES CONSULTANT [employer] SALES CONSULTANT * SCANNED DOCUMENT - 09/02/2013 5:17 PM CDT documented in this encounter ED Notes * James Mas MD - 08/31/2013 5:24 AM CDT Pt was not seen by ED Attending staff. Pt was seen by Surgery Team only. No pr ofessional Fee. James Mas MD * Devang Sethi RN - 08/30/2013 11:33 PM CDT Pt transported to unit 51 via transport. Skin w/p/d, resp eupnic. No new c/o. Dressing to abd changed d/t saturation. * Devang Sethi RN - 08/30/2013 11:13 PM CDT Request for transport ordered. * Devang Sethi RN - 08/30/2013 11:05 PM CDT Report called to GHAZALA Castillo. * Devang Sethi RN - 08/30/2013 11:00 PM CDT UA collected * Shawn Kendall RN - 08/30/2013 10:46 PM CDT 5108-2 @ 2246. Please call GHAZALA Siddiqi at [phone]. * Devang Sethi RN - 08/30/2013 10:40 PM CDT NS 1L via gravity. Dr. Mas @ bedside. * Mini Lutz RN - 08/30/2013 10:22 PM CDT Pain after dilaudid still at 05/14. Patient's brought in levaquin medication bottle. Capsule are not scored and divided irregular. * Devang Sethi RN - 08/30/2013 10:08 PM CDT Surgical consult and Dr. Mcallister @ bedside. * Mini Lutz RN - 08/30/2013 10:01 PM CDT Patient arrived in ED 22 via WC from triage accompanied by his for evaluati on of abdominal pain and drainage from midline incision. Patient had ventral her aaliyah repair August 13, seen yesterday in surgery clinic and a seroma was draina ge from upper third of incision, tito were removed yesterday. A collection ba g was applied until drainage ceased. Patient started Levaquin po and changed sheri n medication to dilaudid. Last dose at 1400. Patient drove 2 hours with his , they live near [place], [place]. Surgery resident at bedside upon patient arrival to bed 22. * Devang Sethi RN - 08/30/2013 10:01 PM CDT Assumed care of pt from GHAZALA Morse. documented in this encounter Miscellaneous Notes * Admin - SCANNED DOCUMENT - 09/10/2013 3:12 PM OUTSIDE SOLAR SALES CONSULTANT [employer] CONSULTANT * Patient Education - SCANNED DOCUMENT - 09/10/2013 3:12 PM OUTSIDE SOLAR SALES CONSULTANT [employer] SALES CONSULTANT * Discharge Instructions - Vanessa Lopez RN - 09/08/2013 12:46 PM OUTSIDE [employer] SALES CONSULTANT Discharge Documentation: Activity as Tolerated You should resume your normal activity at discharge. Lifting Restrictions Do not lift more than 10 pounds for 4 week(s). Driving Restrictions No driving while taking pain medication. Bathing Restrictions No bathing or showering while wound vac is in place Return Appointment Please call Dr. Ferguson's office at [phone] to schedule your appointment time on 09/12/13. Provider RAJEEV FERGUSON [[id number]] Location Surgery [facility] Appointment date: 09/12/2013 Report These Signs and Symptoms Please contact your doctor if you have any of the following symptoms: temperatur e higher than 101.4 degrees F, uncontrolled pain, persistent nausea and/or vomit ing or difficulty breathing, worsening pain from wound site, pus drainage from w ound, uncontrollable bleeding. Questions About Your Stay For questions or concerns regarding your hospital stay: DURING BUSINESS HOURS (8:00 AM - 4:30 PM): Call [phone] and asked to be transferred to your discharge attending ever walters (below). AFTER BUSINESS HOURS (4:30 PM - 8:00 AM, on weekends, or holidays): Call [phone] and ask the plastic molding operator to page the on-call doctor for the discha rge attending physician (below). Discharging attending physician: RAJEEV FERGUSON [[id number]] Diabetic Diet You should eat between 2100 and 2400 calories per day. This is equal to 75g (gr ams) of carbohydrates per meal, and 30g of carbohydrates for a bedtime snack. If you have questions about your diet after you go home, you can call a dietitia n at [phone]. Wound Care Keep wound clean and dry. Do not submerge under water. Keep wound vac in place at 125 mmhg at all times. Call the home health team if wound vac dysfunctions. Will change wound vac at follow up visit with Dr. Ferguson on 09/12/13 Opioid (Narcotic) Safety Information OPIOID (NARCOTIC) PAIN MEDICATION SAFETY We care about your comfort, and believe you need opioid medications at this time to treat your pain. An opioid is a strong pain medication. It is only availab le by prescription for moderate to severe pain. Usually these medications are u sed for only a short time to treat pain, but sometimes will be prescribed for lo nger. Talk with your doctor or nurse about how long they expect you to need thi s medication. When used the right way, opioids are safe and effective medications to treat you r pain, even when used for a long time. Yet, when used in the wrong way, opioid s can be dangerous for you or others. Opioids do not work for everyone. Most p atients do not get full relief of their pain from opioid medication; full relief of your pain may not be possible. For your safety, we ask you to follow these instructions: *Only take your opioid medication as prescribed. If your pain is not controlled with the prescribed dose, or the medication is not lasting long enough, call yo doctor. *Do not break or crush your opioid medication unless your doctor or pharmacist s ays you can. With certain medications, this can be dangerous, and may cause stefan th. *Never share your medications with others, even if they appear to have a good re ason. Never take someone else's pain medication-this is dangerous, and illegal (a crime). Overdoses and deaths have occurred. *Keep your opioid medications safe, as you would with overton, in a lock box or sim ilar container. *Make sure your opioids are going to be secure, especially if you are around chi ldren or teens. *Talk with your doctor or pharmacist before you take other medications. *Avoid driving, operating machinery, or drinking alcohol while taking opioid sheri n medication. This may be unsafe. Current Discharge Medication List START taking these medications Details oxyCODone (ROXICODONE) 5 mg tablet Take 1-2 Tabs by mouth every 4 hours as neede d for Pain Qty: 30 Tab, Refills: 0 PRESCRIPTION TYPE: Print Associated Diagnoses: Wound dehiscence CONTINUE these medications which have NOT CHANGED Details HYDROmorphone (DILAUDID) 2 mg tablet Take 1 Tab by mouth every 3 hours as needed Qty: 60 Tab, Refills: 0 PRESCRIPTION TYPE: Print lidocaine (LIDODERM) 5 % topical patch Apply to affected area for 12 hours, then remove for 12 hours. Qty: 30 Patch, Refills: 0 PRESCRIPTION TYPE: Normal senna/docusate (SENOKOT-S) 8.6/50 mg tablet Take 1 Tab by mouth twice daily. Qty: 60 Tab, Refills: 0 PRESCRIPTION TYPE: Normal clonazePAM (KLONOPIN) 1 mg tablet Take 1 mg by mouth at bedtime daily. PRESCRIPTION TYPE: Historical Med diazepam (VALIUM) 5 mg tablet Take 0.5-1 Tabs by mouth every 6 hours as needed. Qty: 30 Tab, Refills: 0 PRESCRIPTION TYPE: Print STOP taking these medications levofloxacin (LEVAQUIN) 500 mg tablet silver sulfADIAZINE (SILVADENE) 1 % topical cream oxyCODone-acetaminophen (PERCOCET; ENDOCET; ROXICET) 5-325 mg tablet acetaminophen (TYLENOL) 500 mg tablet Immunization History: Immunization History Administered Date(s) Administered Flu Vaccine Trivalent=>3 Yo (Preservative Free) 08/31/2013 Personal Belongings: Case Management Agency Information: Home Health Agency Name, Phone & Fax: ([facility] [phone]) DME / Infusion Agency Name, Phone & Fax: [facility] ([phone]) (fax: [phone]) Services Needed: Home Health Nurse Home Equipment/supplies: (Take home wound vac) Other Instructions: IDE SOLAR SALES CONSULTANT * Case Mgmt DC Plan - Gabriella Reyes RN - 09/08/2013 9:11 AM OUTSIDE SOLAR SALES CONSULTANT Nurse Paving Machine Operator Note PLAN: Discharge home today w/ home wound vac and home health INTERVENTION: Received call from Dr. Olmstead re: home wound vac for pt. Reviewed CM notes, wound vac ordered over the weekend, wound vac unable to be procured d/t insuran ce company being closed and auth not being completed. Wound vac is anticipated to be approved and released this AM. Contacted [facility]--[phone]. Wound vac is still pending insurance approval. In formed them that pt's discharge is pending receipt of vac, they will work to exp edite order. Also contacted [facility] rep, Pinky Lubin to assist w/ vac devyn juan f. Contacted [facility] [phone]. Orders not yet received. Faxed orders and notes for start of care Monday 09/10. Will fax d/ c instructions when available. [email or web address]: Contacted [facility] again re: wound vac. Wound vac released, no ETA on delivery, NCM will be contacted. Updated Dr. Olmstead, will let him know ETA once available. Per Dr. Sera gilliam, wound vac is not to be changed by home health nurse on Sunday. Pt has devyn t to see Dr. Ferguson on Wednesday 09/12, next dressing change will be this date. [facility], faxed, and d/w Casie from [facility]. [email or web address]: Faxed d/c instructions to [facility]. Gabriella Reyes RN, BSN Nurse Paving Machine Operator *[phone] IDE SOLAR SALES CONSULTANT * Case Mgmt DC Plan - Kimmie Killian RN - 09/06/2013 4:14 PM CDT Nurse Paving Machine Operator Note INTERVENTIONS: Call received from Stacy of [facility] [phone] stating that she was unable to obt ain an online approval because patient's co-insurance was not visible. She is an ticipating wound vac will be released and delivered on Sunday morning only. Will inform resident. Kimmie Young SALVAGE MECHANIC Nurse Paving Machine Operator [phone], *[phone] * Case Mgmt DC Plan - Kimmie Killian RN - 09/06/2013 3:28 PM CDT Nurse Paving Machine Operator Note PLAN: D/C HOME SOON TAKE HOME WOUND VAC ARRIVES INTERVENTIONS: Informed by Shanna that team wants patient to d/c home today with a take home wound vac and correction services. She had partially completed paperwork in cluding MD's signature. NCM completed paperwork and faxed to [facility]. tax representative working on pt's c ase is Stacy at ext [phone] and the case ID number is [id number]. Ac cording to [facility], insurance company is closed on weekends and they will attempt to get an online approval if possible. If on-line approval comes through, patient' s wound vac will be delivered over the weekend, otherwise, likely d/c with wound vac on Sunday instead. Spoke with Fe Moser of [facility] [phone]. Her agency accep emanuel to provide wound vac dressing changes and have been faxed home health orders . Resident and bedside nurse have been informed of status. NCM went to go see alise ent but he was off the unit. Will continue to follow tomorrow and coordinate d/c plans. Kimmie Young SALVAGE MECHANIC Nurse Paving Machine Operator [phone] * Case Mgmt DC Plan - Ruma Oconnor RN - 09/03/2013 12:59 PM CDT Plan of the Day & Interventions: Spoke to Dr Ferguson, he will take wound vac off tomorrow and assess. Met patient in his room. Explained role of RNCM. Explained that CM would continu e to follow and assess for discharge needs. Discharge Plan: Patient lives with his Mignon. He will discharge to home once medically sta ble. Will continue to assess for wound vac need at home. Barriers to Discharge: n/a Activity: Independent of his ADL's Lines/Drains/Wounds: Lines - Peripheral IV Drains - Wound Vac in two spot on abdomen. Wounds - abdominal wound from surgery on 08/13/13 with tito. Bowel Function: BM on 09/01/13 Diet: DM diet Pulmonary: RA Consults: N/a Medications Alerts: Zoysn and Vanco Plan of the Stay: 53M with h/o ventral hernia repair with post operative seroma, concern for possi ble dehiscence or wound infection. Patient admitted from the ER for evaluation of abdominal pain and drainage from midline incision. Patient had ventral hernia repair August 13, seen yesterday in surgery clinic and a seroma was drainage from upper third of incision, staple s were removed yesterday. A collection bag was applied until drainage ceased. 08/31/13 - patient admitted to [facility] Phyllis Nayak. IV antibiotics started and CT orde red. 09/02/30 - Exploration of wound, washout and placement of vac by Dr Ferguson. Ruma Oconnor RN, BSN Nurse Paving Machine Operator Phone: [phone] Pager: [phone] * Operative Report (DICTATED ONLY) - Dania So MD - 09/02/2013 10:10 PM CDT DATE OF OPERATION: 09/02/2013 ROOM #: [id number] SURGEON: Rajeev Ferguson MD CO-SURGEON(S): CARPENTER SUPERVISOR(S): Dania So MD PREOPERATIVE DIAGNOSIS: Abdominal wound infection. POSTOPERATIVE DIAGNOSIS: Same with seroma. OPERATIVE PROCEDURE: Opening of abdominal wound, debridement and irrigation, and wound VAC placement. ANESTHESIA: FINDINGS: INDICATIONS FOR OPERATIVE PROCEDURE: DESCRIPTION OF OPERATIVE PROCEDURE: After informed consent was obtained, the pa tiemimi was brought to the operating room and placed in supine position. General anesthesia was induced. The abdomen was prepped and draped in normal sterile fa shion. The previous incision was opened with blunt dissection. There was noted to be gelatinous seroma in the subcutaneous tissues above the fascia. This was debrided and cleaned. The skin edges were incised with a 15 blade as well as e lectrocautery. Hemostasis was achieved. Next the wound was copiously irrigated . It was noted that the fascia was intact. There was no mesh apparent and the muscle overlying the mesh had incorporated well. There was no defects in the f ascia and the PDS suture was noted to be intact without any issues with the sutu re. At this point, it was decided to attempt to not remove the mesh. The subcu taneous tissues were copiously irrigated. The umbilicus was reapproximated and the 2 superior and inferior wounds were then treated by placing a wound VAC. Th is was attached to suction with adequate suction of the wound VAC without any le ak. The patient tolerated procedure well and was extubated in the operating keya m, transferred to postanesthesia care unit in stable condition. All sponge, lap , and instrument counts were accurate at the end of the case. Dr. Ferguson was pre sent and scrubbed for the entirety of the case. Rajeev Ferguson MD Dictated by: Dania So MD / ED /[id number] cc: - Rajeev Ferguson MD IDE SOLAR SALES CONSULTANT * Case Mgmt DC Plan - Ruma Oconnor RN - 09/02/2013 3:53 PM CDT Plan of the Day & Interventions: Spoke to Dr So, patient is going back to the OR today for explorati on of wound, washout and placement of wound vac. RNCM will f/u with patient tomorrow. Ruma Oconnor RN, BSN Nurse Paving Machine Operator Phone: [phone] Pager: [phone] * Procedures (Immed Post or Bedside) - Rajeev Ferguson MD - 09/02/2013 1:35 PM CDT Brief Op Note Date: 09/02/2013 Preoperative Dx: Wound drainage Postoperative Dx: Seroma of wound Procedure: Exploration of wound, washout and placement of vac Primary Surgeon: Dr. Ferguson Commercial Escrow Officer(s): Judah Indications: Wound drainage Findings: Seroma with gelatenous materieal Anesthesia: General Estimated Blood Loss: Minimal Specimen(s) Removed/Disposition: Yes, sent to pathology Complications: None Implants: None Drains: None Disposition: PACU - stable Dania So MD Pager [phone] STAFF: I personally performed this procedure with a Resident and was present for the entire case. IDE SOLAR SALES CONSULTANT * Critical Results - Hesham Sorto RN - 09/02/2013 11:06 AM CDT Critical result or procedure called (document test and value, and read back): B lood sugar 72 Time MD/BOOK RETAILER Notified: [phone] MD/BOOK RETAILER Name: Phyllis HANSEN/BOOK RETAILER Response/Orders Given: 1/2 amp D5 * Anesthesia Pre-Op - Rajeev Blair MD - 09/01/2013 6:31 PM CDT Pre-Operative Anesthesia Assessment Admission Date: 08/30/2013 LOS: 2 days Assessment: ASA II Plan: General Chief Complaint/ Planned Procedure: Ex Lap removal mesh, replace with biologic mesh NPO :advised to be NPO after MN Active Problems: S/P repair of ventral hernia Staff Surgeon: Dr. Ferguson Admission Status: Inpatient Surgery Date: 09/02/13 Patient location: [facility] Surgical Floor Historian: Patient Past Medical History Diagnosis Date Diabetes Past Surgical History Procedure Date Back surgery 2009 Hernia repair Knee surgery Acl reconstruction Wrist surgery Complications: None Nursing Medical History Diabetes Yes no meds,"diet controlled" Other Yes recurrent ventral hernia,low back pain Nursing Surgical History Back Surgery Yes fusion Other Yes hernia,knee,wrist Prior Anesthetic Types: General Family Anesthesia HX: None No Known Allergies Medications Inpatient Scheduled Meds: vancomycin (VANCOCIN) 2,000 mg in dextrose 5% (D5W) IVPB 2,000 mg Intravenous Q1 2H* senna/docusate (SENOKOT-S) tablet 1 Tab 1 Tab Oral BID insulin aspart (NOVOLOG) flexPEN 0-28 Units 0-28 Units Subcutaneous 5 X Day lidocaine (LIDODERM) 5 % topical patch 1-2 Patch 1-2 Patch Topical QDAY clonazePAM (KLONOPIN) tablet 1 mg 1 mg Oral QHS vancomycin, pharmacy to manage 1 Each Service Per Pharmacy piperacillin/tazobactam (ZOSYN) 3.375 g/50 mL iso-osmotic IVPB 3.375 g Intraven ous Q6H* Continuous Infusions: PRN and Respiratory Meds:oxyCODone Q4H PRN, acetaminophen Q6H PRN, morphine inj ection syringe Q1H PRN, diazepam Q6H PRN, ondansetron Q6H PRN Social History Substance Use Topics Smoking status: Never Smoker Smokeless tobacco: Never Used Alcohol Use: No Review of Systems Airway:upper dentures Cardiovascular: Negative Pulmonary: Negative GI:Reflux: Controlled Endocrine: Diet controlled diabetes Heme/Onc: WNL Renal:Negative Neurological:Negative Musculoskeletal:WNL Vital Signs (Last Filed in 24 hours) BP: 117/78 mmHg (09/01 1435) Temp: 37 C (98.6 F) (09/01 1435) Pulse: 72 (09/01 1435) Respirations: 17 PER MINUTE (09/01 1435) SpO2: 94 % (09/01 1435) O2 Delivery: None (Room Air) (09/01 1435) Physical Exam Jarett Bennett is a 53 y.o. male. Weight: 107.956 kg (238 lb) Height: 188 cm (74") BMI (Calculated): 30.56 Airway: Mallampati Class I, Normal thyromental distance, Good neck ROM, Neck sup ple and symmetrical and Trachea midline Cardiovascular:Heart sounds: regular rate and rhythm Pulmonary: Breath sounds: clear, equal bilaterally and Respirations regular and unlabored GI/Metabolic:Exam deferred Neurological:Alert and Oriented Diagnostic Tests Hematology: Lab Results Component Value Date HGB 12.6 09/01/2013 HCT 38.0 09/01/2013 PLTCT 171 09/01/2013 WBC 5.4 09/01/2013 NEUT 68 09/01/2013 ANC 3.60 09/01/2013 ALC 1.10 09/01/2013 ELYSIA 9 09/01/2013 AMC 0.50 09/01/2013 EOSA 2 09/01/2013 ABC 0.00 09/01/2013 MCV 88.8 09/01/2013 MCH 29.5 09/01/2013 MCHC 33.3 09/01/2013 MPV 9.5 09/01/2013 RDW 12.2 09/01/2013 General Chemistry: Lab Results Component Value Date NA 134 09/01/2013 K 3.9 09/01/2013 CL 100 09/01/2013 CO2 28 09/01/2013 GAP 6 09/01/2013 BUN 13 09/01/2013 CR 0.86 09/01/2013 GLU 333 09/01/2013 CA 8.3 09/01/2013 LACTIC 0.7 08/31/2013 MG 1.6 09/01/2013 PO4 2.3 09/01/2013 Coagulation: No results found for this basename: pt, ptt, inr Labs: Pertinent labs reviewed EKG: Not obtained CXR: Not obtained Consults: Not obtained Assessment by: Sincere Avalos, RN Pager Date: 09/01/2013 ATTESTATION I have reviewed mckeon portions of the evaluation with the patient/parent/guardian and Agree, The anesthesia plan is General , ASA Classification: ASA II and Po st operative pain management will be by Primary service Staff name: Rajeev Blair MD Date: 09/02/2013 * Case Mgmt DC Plan - Ruma Oconnor RN - 09/01/2013 10:10 AM CDT Plan of the Day & Interventions: EMR review. Patient was her 08/13/13 - 08/16/13. S/p Open ventral hernia repair w ith mesh by Dr Ferguson on 08/13/13. Discharge Plan: Patient lives with his Mignon. He will discharge to home once medically sta ble. Barriers to Discharge: n/a Activity: Independent of his ADL's Lines/Drains/Wounds: Lines - Peripheral IV Drains - Wounds - abdominal wound from surgery on 08/13/13 with tito. Bowel Function: BM on 08/31/13 Diet: DM diet Pulmonary: RA Consults: N/a Medications Alerts: Tarahysn and Vanco Plan of the Stay: 53M with h/o ventral hernia repair with post operative seroma, concern for possi ble dehiscence or wound infection. Patient admitted from the ER for evaluation of abdominal pain and drainage from midline incision. Patient had ventral hernia repair August 13, seen yesterday in surgery clinic and a seroma was drainage from upper third of incision, stapl es were removed yesterday. A collection bag was applied until drainage ceased. 08/31/13 - patient admitted to Dr Phyllis Nayak. IV antibiotics started and CT orde red. Ruma Oconnor RN, BSN Nurse Paving Machine Operator Phone: [phone] Pager: [phone] * Admin - SCANNED DOCUMENT - 08/30/2013 9:30 PM CDT documented in this encounter Plan of Treatment Not on filedocumented as of this encounter Procedures Comments Procedure Name Priority Date/Time Associated Diagnosis PROCEDURES-SCAN 09/10/2013 3:12 PM OUTSIDE SOLAR SALES CONSULTANT POC GLUCOSE 09/08/2013 2:17 PM OUTSIDE SOLAR SALES CONSULTANT POC GLUCOSE 09/08/2013 8:38 AM OUTSIDE SOLAR SALES CONSULTANT CBC AND DIFF Routine 09/08/2013 5:29 AM OUTSIDE SOLAR SALES CONSULTANT PHOSPHORUS Routine 09/08/2013 5:29 AM OUTSIDE SOLAR SALES CONSULTANT MAGNESIUM Routine 09/08/2013 5:29 AM OUTSIDE SOLAR SALES CONSULTANT BASIC METABOLIC PANEL Routine 09/08/2013 5:29 AM OUTSIDE SOLAR SALES CONSULTANT POC GLUCOSE 09/08/2013 2:52 AM OUTSIDE SOLAR SALES CONSULTANT POC GLUCOSE 09/07/2013 9:05 PM OUTSIDE SOLAR SALES CONSULTANT POC GLUCOSE 09/07/2013 5:42 PM OUTSIDE SOLAR SALES CONSULTANT POC GLUCOSE 09/07/2013 12:24 PM OUTSIDE SOLAR SALES CONSULTANT POC GLUCOSE 09/07/2013 7:33 AM OUTSIDE SOLAR SALES CONSULTANT CBC AND DIFF Routine 09/07/2013 5:14 AM OUTSIDE SOLAR SALES CONSULTANT PHOSPHORUS Routine 09/07/2013 5:14 AM OUTSIDE SOLAR SALES CONSULTANT MAGNESIUM Routine 09/07/2013 5:14 AM OUTSIDE SOLAR SALES CONSULTANT BASIC METABOLIC PANEL Routine 09/07/2013 5:14 AM OUTSIDE SOLAR SALES CONSULTANT POC GLUCOSE 09/07/2013 4:11 AM OUTSIDE SOLAR SALES CONSULTANT POC GLUCOSE 09/07/2013 3:22 AM OUTSIDE SOLAR SALES CONSULTANT POC GLUCOSE 09/06/2013 10:37 PM CDT POC GLUCOSE 09/06/2013 9:32 PM CDT POC GLUCOSE 09/06/2013 7:26 PM CDT POC GLUCOSE 09/06/2013 3:28 PM CDT POC GLUCOSE 09/06/2013 9:22 AM CDT CBC AND DIFF Routine 09/06/2013 5:25 AM CDT PHOSPHORUS Routine 09/06/2013 5:25 AM CDT MAGNESIUM Routine 09/06/2013 5:25 AM CDT BASIC METABOLIC PANEL Routine 09/06/2013 5:25 AM CDT POC GLUCOSE 09/06/2013 3:39 AM CDT POC GLUCOSE 09/05/2013 9:16 PM CDT POC GLUCOSE 09/05/2013 4:23 PM CDT POC GLUCOSE 09/05/2013 4:01 PM CDT POC GLUCOSE 09/05/2013 1:58 PM CDT POC GLUCOSE 09/05/2013 8:29 AM CDT CBC AND DIFF Routine 09/05/2013 5:18 AM CDT PHOSPHORUS Routine 09/05/2013 5:18 AM CDT MAGNESIUM Routine 09/05/2013 5:18 AM CDT HEMOGLOBIN A1C Add on 09/05/2013 5:18 AM CDT BASIC METABOLIC PANEL Routine 09/05/2013 5:18 AM CDT POC GLUCOSE 09/05/2013 3:38 AM CDT POC GLUCOSE 09/04/2013 9:13 PM CDT POC GLUCOSE 09/04/2013 5:32 PM CDT POC GLUCOSE 09/04/2013 2:40 PM CDT POC GLUCOSE 09/04/2013 10:03 AM CDT POC GLUCOSE 09/04/2013 8:31 AM CDT CBC AND DIFF Routine 09/04/2013 5:40 AM CDT PHOSPHORUS Routine 09/04/2013 5:40 AM CDT MAGNESIUM Routine 09/04/2013 5:40 AM CDT BASIC METABOLIC PANEL Routine 09/04/2013 5:40 AM CDT POC GLUCOSE 09/04/2013 3:43 AM CDT POC GLUCOSE 09/04/2013 12:19 AM CDT VANCOMYCIN TROUGH Routine 09/03/2013 8:35 PM CDT POC GLUCOSE 09/03/2013 7:57 PM CDT POC GLUCOSE 09/03/2013 6:40 PM CDT POC GLUCOSE 09/03/2013 2:41 PM CDT POC GLUCOSE 09/03/2013 10:13 AM CDT POC GLUCOSE 09/03/2013 8:29 AM CDT CONSULT IV THERAPY TEAM STAT 09/03/2013 8:20 AM CDT CBC AND DIFF Routine 09/03/2013 4:54 AM CDT PHOSPHORUS Routine 09/03/2013 4:54 AM CDT MAGNESIUM Routine 09/03/2013 4:54 AM CDT BASIC METABOLIC PANEL Routine 09/03/2013 4:54 AM CDT POC GLUCOSE 09/03/2013 3:45 AM CDT POC GLUCOSE 09/02/2013 9:05 PM CDT POC GLUCOSE 09/02/2013 5:26 PM CDT POC GLUCOSE 09/02/2013 2:01 PM CDT CULTURE-FUNGAL,OTHER STAT 09/02/2013 1:15 PM CDT GRAM STAIN STAT 09/02/2013 1:15 PM CDT CULTURE-TB (AFB) 09/02/2013 1:15 PM CDT CULTURE-WOUND/TISSUE/FLUI STAT 09/02/2013 D(AEROBIC 1:15 PM CDT ONLY)W/SENSITIVITY CULTURE-ANAEROBIC STAT 09/02/2013 1:15 PM CDT POC GLUCOSE 09/02/2013 12:09 PM CDT POC GLUCOSE 09/02/2013 11:19 AM CDT POC GLUCOSE 09/02/2013 10:36 AM CDT BLOOD TYPE CONFIRMATION - 09/02/2013 ORDER ONLY IF REQUESTED 10:00 AM CDT BY LAB TYPE & CROSSMATCH Routine 09/02/2013 8:50 AM CDT POC GLUCOSE 09/02/2013 8:09 AM CDT CBC AND DIFF Routine 09/02/2013 5:05 AM CDT PHOSPHORUS Routine 09/02/2013 5:05 AM CDT MAGNESIUM Routine 09/02/2013 5:05 AM CDT BASIC METABOLIC PANEL Routine 09/02/2013 5:05 AM CDT POC GLUCOSE 09/02/2013 3:01 AM CDT POC GLUCOSE 09/01/2013 9:05 PM CDT POC GLUCOSE 09/01/2013 4:32 PM CDT VANCOMYCIN TROUGH Routine 09/01/2013 3:10 PM CDT POC GLUCOSE 09/01/2013 2:42 PM CDT GRAM STAIN Routine 09/01/2013 9:30 AM CDT CULTURE-WOUND/TISSUE/FLUI Routine 09/01/2013 D(AEROBIC 9:30 AM CDT ONLY)W/SENSITIVITY POC GLUCOSE 09/01/2013 9:14 AM CDT CBC AND DIFF STAT 09/01/2013 5:00 AM CDT PHOSPHORUS STAT 09/01/2013 5:00 AM CDT MAGNESIUM STAT 09/01/2013 5:00 AM CDT BASIC METABOLIC PANEL STAT 09/01/2013 5:00 AM CDT POC GLUCOSE 09/01/2013 3:53 AM CDT POC GLUCOSE 08/31/2013 11:14 PM CDT CONSULT IV THERAPY TEAM Routine 08/31/2013 8:06 PM CDT POC GLUCOSE 08/31/2013 5:58 PM CDT POC GLUCOSE 08/31/2013 12:33 PM CDT POC GLUCOSE 08/31/2013 9:05 AM CDT LACTIC ACID(LACTATE) STAT 08/31/2013 8:40 AM CDT CBC AND DIFF Routine 08/31/2013 7:28 AM CDT PHOSPHORUS Routine 08/31/2013 7:28 AM CDT MAGNESIUM Routine 08/31/2013 7:28 AM CDT BASIC METABOLIC PANEL Routine 08/31/2013 7:28 AM CDT URINALYSIS, MICROSCOPIC STAT 08/30/2013 11:15 PM CDT URINALYSIS DIPSTICK STAT 08/30/2013 11:15 PM CDT CULTURE-URINE Specimen 08/30/2013 W/SENSITIVITY in Lab 11:15 PM CDT CULTURE-BLOOD Routine 08/30/2013 W/SENSITIVITY 10:55 PM CDT CULTURE-BLOOD Routine 08/30/2013 W/SENSITIVITY 9:50 PM CDT CBC AND DIFF STAT 08/30/2013 9:50 PM CDT PHOSPHORUS STAT 08/30/2013 9:50 PM CDT MAGNESIUM STAT 08/30/2013 9:50 PM CDT LACTIC ACID(LACTATE) STAT 08/30/2013 9:50 PM CDT BASIC METABOLIC PANEL STAT 08/30/2013 9:50 PM CDT documented in this encounter Results * PROCEDURES-SCAN (09/10/2013 3:12 PM OUTSIDE SOLAR SALES CONSULTANT) Narrative Performed At Transcriptions SCANNED DOCUMENT - 09/10/2013 3:12 PM OUTSIDE SOLAR SALES CONSULTANT * POC GLUCOSE (09/08/2013 2:17 PM OUTSIDE SOLAR SALES CONSULTANT) Glucose, POC 167 (H) 70 - 100 MG/DL MAIN LAB Specimen Performing Organization Address [facility] Phone Number [facility] LAB [address] [place] [address] * POC GLUCOSE (09/08/2013 8:38 AM OUTSIDE SOLAR SALES CONSULTANT) Glucose, POC 182 (H) 70 - 100 MG/DL MAIN LAB Specimen Performing Organization Address City/[facility]/Zipcode Phone Number MAIN LAB [address] [place] [address] * PHOSPHORUS (09/08/2013 5:29 AM OUTSIDE SOLAR SALES CONSULTANT) Phosphorus 3.2 2.0 - 4.0 MG/DL MAIN LAB Specimen Blood - Blood Performing Organization Address [facility] Phone Number [facility] LAB [address] [place] [address] * MAGNESIUM (09/08/2013 5:29 AM OUTSIDE SOLAR SALES CONSULTANT) Pathologist [facility] Magnesium 1.8 1.6 - 2.6 MG/DL [facility] MAIN LAB Specimen Blood - Blood Performing Organization Address City/[facility]/Zipcode Phone Number MAIN LAB [address] [place] [address] * BASIC METABOLIC PANEL (09/08/2013 5:29 AM OUTSIDE SOLAR SALES CONSULTANT) Pathologist [facility] Sodium 138 137 - 147 MMOL/L [facility] MAIN LAB Potassium 3.7 3.5 - 5.1 MMOL/L [facility] Chloride 101 98 - 110 MMOL/L [facility] CO2 33 (H) 21 - 30 MMOL/L [facility] Anion Gap 4 (L) 8 - 12 [facility] Glucose 115 (H) 70 - 100 MG/DL [facility] Blood Urea 13 7 - 25 MG/DL [facility] Nitrogen Creatinine 0.99 0.4 - 1.24 MG/DL [facility] Calcium 9.1 8.6 - 10.3 MG/DL [facility] eGFR Non >60 >60 ML/MIN/1.73 SQM [facility] Comment: [place] The eGFR is not validated for use in drug dosing adjustments.Continue to use estimated creatinine clearance per dosing reference text.Please contact the Clinical Pharmacist for questions. eGFR >60 >60 ML/MIN/1.73 SQM [facility] MAIN [facility] [place] Comment: The eGFR is not validated for use in drug dosing adjustments.Continue to use estimated creatinine clearance per dosing reference text.Please contact the Clinical Pharmacist for questions. Specimen Blood - Blood Performing Organization Address City/[facility]/Zipcode Phone Number MAIN LAB [address] [place] [address] * CBC AND DIFF (09/08/2013 5:29 AM OUT[employer]IDE [employer]SULTANT) Pathologist [facility] White Blood 5.0 4.5 - 11.0 K/UL [facility] MAIN LAB Cells RBC 4.27 (L) 4.4 - 5.5 M/UL [facility] MAIN [facility] Hemoglobin 12.8 (L) 13.5 - 16.5 GM/DL [facility] MAIN LAB Hematocrit 38.2 (L) 40 - 50 % [facility] MAIN LAB MCV 89.6 80 - 100 FL [facility] MAIN LAB MCH 30.0 26 - 34 PG [facility] MAIN LAB MCHC 33.5 32.0 - 36.0 G/DL [facility] MAIN LAB RDW 12.4 11 - 15 % [facility] MAIN LAB Platelet Count 199 150 - 400 K/UL MAIN LAB MPV 8.0 7 - 11 FL [facility] MAIN LAB Neutrophils 42 41 - 77 % [facility] MAIN [facility] Lymphocytes 42 24 - 44 % MAIN LAB Monocytes 12 4 - 12 % MAIN LAB Eosinophils 3 0 - 5 % MAIN LAB Basophils 1 0 - 2 % MAIN LAB Absolute 2.20 1.8 - 7.0 K/UL [facility] MAIN LAB Neutrophil Count Absolute Lymph 2.10 1.0 - 4.8 K/UL [facility] MAIN LAB Count Absolute 0.60 0 - 0.80 K/UL MAIN LAB Monocyte Count Absolute 0.20 0 - 0.45 K/UL MAIN LAB Eosinophil Count Absolute 0.00 0 - 0.20 K/UL MAIN LAB Basophil Count Specimen Blood - Blood Performing Organization Address City/[facility]/Zipcode Phone Number MAIN LAB [address] [place] [address] * POC GLUCOSE (09/08/2013 2:52 AM [employer] CONSULTANT) Glucose, POC 248 (H) 70 - 100 MG/DL MAIN LAB Specimen Performing Organization Address City/[facility] Phone Number MA[facility] LAB [address] [place] [address] * POC GLUCOSE (09/07/2013 9:05 PM OUT[employer]IDE [employer] CONSULTANT) Glucose, POC 213 (H) 70 - 100 MG/DL MAIN LAB Specimen Performing Organization Address [facility] Phone Number MAIN LAB [address] [place] [address] * POC GLUCOSE (09/07/2013 5:42 PM OUT[employer]IDE [employer] SAL[employer] CONSULTANT) Glucose, POC 216 (H) 70 - 100 MG/DL MAIN LAB Specimen Performing Organization Address [facility]/Zipcode Phone Number MAIN LAB [address] [place] [address] * POC GLUCOSE (09/07/2013 12:24 PM OUT[employer]IDE [employer] SAL[employer] CONSULTANT) Glucose, POC 165 (H) 70 - 100 MG/DL MAIN LAB Specimen Performing Organization Address [facility] Phone Number MAIN LAB [address] [place] [address] * POC GLUCOSE (09/07/2013 7:33 AM OUT[employer]IDE [employer] SAL[employer] CONSULTANT) Glucose, POC 198 (H) 70 - 100 MG/DL K[facility] MAIN LAB Specimen Performing Organization Address [facility] Phone Number MAIN LAB [address] [place] [address] * PHOSPHORUS (09/07/2013 5:14 AM OUTSIDE [employer] SAL[employer] CONSULTANT) Phosphorus 2.1 2.0 - 4.0 MG/DL K[facility] MAIN LAB Specimen Blood - Blood Performing Organization Address [facility] Phone Number MAIN LAB [address] [place] [phone] * MAGNESIUM (09/07/2013 5:14 AM OUTSIDE [employer] SAL[employer] CONSULTANT) Magnesium 1.8 1.6 - 2.6 MG/DL MAIN LAB Specimen Blood - Blood Performing Organization Address [facility] Phone Number MAIN LAB [address] [place] [address] * BASIC METABOLIC PANEL (09/07/2013 5:14 AM OUTSIDE [employer] SAL[employer] CONSULTANT) Pathologist [facility] Sodium 137 137 - 147 MMOL/L [facility] MAIN LAB Potassium 4.1 3.5 - 5.1 MMOL/L [facility] MAIN LAB Chloride 101 98 - 110 MMOL/L [facility] MAIN LAB CO2 31 (H) 21 - 30 MMOL/L [facility] MAIN LAB Anion Gap 5 (L) 8 - 12 [facility] MAIN LAB Glucose 190 (H) 70 - 100 MG/DL [facility] MAIN LAB Blood Urea 12 7 - 25 MG/DL [facility] MAIN LAB Nitrogen Creatinine 0.85 0.4 - 1.24 MG/DL [facility] MAIN LAB Calcium 9.2 8.6 - 10.3 MG/DL [facility] MAIN LAB eGFR Non >60 >60 ML/MIN/1.73 SQM [facility] MAIN LAB Comment: [place] The eGFR is not validated for use in drug dosing adjustments.Continue to use estimated creatinine clearance per dosing reference text.Please contact the Clinical Pharmacist for questions. eGFR >60 >60 ML/MIN/1.73 SQM [facility] MAIN LAB [place] Comment: The eGFR is not validated for use in drug dosing adjustments.Continue to use estimated creatinine clearance per dosing reference text.Please contact the Clinical Pharmacist for questions. Specimen Blood - Blood Performing Organization Address [facility] Phone Number MAIN LAB [address] [place] [phone] * CBC AND DIFF (09/07/2013 5:14 AM OUTSIDE [employer] SAL[employer] CONSULTANT) White Blood 6.2 4.5 - 11.0 K/UL MAIN LAB Cells RBC 4.41 4.4 - 5.5 M/UL MAIN LAB Hemoglobin 13.1 (L) 13.5 - 16.5 GM/DL MAIN LAB Hematocrit 39.3 (L) 40 - 50 % [facility] MAIN LAB MCV 89.0 80 - 100 FL [facility] MAIN LAB MCH 29.7 26 - 34 PG MAIN LAB MCHC 33.4 32.0 - 36.0 G/DL MAIN LAB RDW 12.5 11 - 15 % [facility] MAIN LAB Platelet Count 222 150 - 400 K/UL MAIN LAB MPV 8.0 7 - 11 FL MAIN LAB Neutrophils 63 41 - 77 % K[facility] MAIN LAB Lymphocytes 26 24 - 44 % MAIN LAB Monocytes 9 4 - 12 % MAIN LAB Eosinophils 2 0 - 5 % MAIN LAB Basophils 0 0 - 2 % MAIN LAB Absolute 3.90 1.8 - 7.0 K/UL MAIN LAB Neutrophil Count Absolute Lymph 1.60 1.0 - 4.8 K/UL MAIN LAB Count Absolute 0.50 0 - 0.80 K/UL MAIN LAB Monocyte Count Absolute 0.10 0 - 0.45 K/UL MAIN LAB Eosinophil Count Absolute 0.00 0 - 0.20 K/UL MAIN LAB Basophil Count Specimen Blood - Blood Performing Organization Address [facility] Phone Number MAIN LAB [address] [place] [address] * POC GLUCOSE (09/07/2013 4:11 AM OUTSIDE [employer] SAL[employer] CONSULTANT) Glucose, POC 225 (H) 70 - 100 MG/DL MAIN LAB Specimen Performing Organization Address [facility] Phone Number MAIN LAB [address] [place] [address] * POC GLUCOSE (09/07/2013 3:22 AM OUTSIDE [employer] SAL[employer] CONSULTANT) Glucose, POC 207 (H) 70 - 100 MG/DL MAIN LAB Specimen Performing Organization Address [facility] Phone Number MAIN LAB [address] [place] [phone] * POC GLUCOSE (09/06/2013 10:37 PM CDT) Pathologist [facility] Glucose, POC 240 (H) 70 - 100 MG/DL MAIN LAB Specimen Performing Organization Address [facility]/Zipcode Phone Number MAIN LAB [address] [place] [address] * POC GLUCOSE (09/06/2013 9:32 PM CDT) Glucose, POC 346 (H) 70 - 100 MG/DL KU MAIN LAB Specimen Performing Organization Address City/[facility] Phone Number MAIN LAB [address] [place] [address] * POC GLUCOSE (09/06/2013 7:26 PM CDT) Glucose, POC 295 (H) 70 - 100 MG/DL K[facility] MAIN LAB Specimen Performing Organization Address City/[facility] Phone Number MAIN LAB [address] [place] [address] * POC GLUCOSE (09/06/2013 3:28 PM CDT) Glucose, POC 197 (H) 70 - 100 MG/DL MAIN LAB Specimen Performing Organization Address [facility] Phone Number MAIN LAB [address] [place] [address] * POC GLUCOSE (09/06/2013 9:22 AM CDT) Glucose, POC 201 (H) 70 - 100 MG/DL MAIN LAB Specimen Performing Organization Address [facility] Phone Number MAIN LAB [address] [place] [address] * PHOSPHORUS (09/06/2013 5:25 AM CDT) Phosphorus 3.1 2.0 - 4.0 MG/DL MAIN LAB Specimen Blood - Blood Performing Organization Address City/[facility] Phone Number MAIN LAB [address] [place] [address] * MAGNESIUM (09/06/2013 5:25 AM CDT) Magnesium 1.9 1.6 - 2.6 MG/DL MAIN LAB Specimen Blood - Blood Performing Organization Address City/[facility] Phone Number MAIN LAB [address] [place] [address] * BASIC METABOLIC PANEL (09/06/2013 5:25 AM CDT) Sodium 136 (L) 137 - 147 MMOL/L [facility] MAIN LAB Potassium 4.0 3.5 - 5.1 MMOL/L [facility] MAIN LAB Chloride 99 98 - 110 MMOL/L [facility] MAIN LAB CO2 34 (H) 21 - 30 MMOL/L [facility] MAIN LAB Anion Gap 3 (L) 8 - 12 [facility] MAIN LAB Glucose 243 (H) 70 - 100 MG/DL [facility] MAIN LAB Blood Urea 12 7 - 25 MG/DL [facility] MAIN LAB Nitrogen Creatinine 0.87 0.4 - 1.24 MG/DL [facility] MAIN LAB Calcium 8.8 8.6 - 10.3 MG/DL [facility] MAIN LAB eGFR Non >60 >60 ML/MIN/1.73 SQM [facility] MAIN LAB Comment: [place] The eGFR is not validated for use in drug dosing adjustments.Continue to use estimated creatinine clearance per dosing reference text.Please contact the Clinical Pharmacist for questions. eGFR >60 >60 ML/MIN/1.73 SQM [facility] MAIN LAB [place] Comment: The eGFR is not validated for use in drug dosing adjustments.Continue to use estimated creatinine clearance per dosing reference text.Please contact the Clinical Pharmacist for questions. Specimen Blood - Blood Performing Organization Address City/State/Zipcode Phone Number MAIN LAB [address] [place] [address] * CBC AND DIFF (09/06/2013 5:25 AM CDT) White Blood 4.8 4.5 - 11.0 K/UL [facility] MAIN LAB Cells RBC 4.09 (L) 4.4 - 5.5 M/UL [facility] MAIN LAB Hemoglobin 12.3 (L) 13.5 - 16.5 GM/DL [facility] MAIN LAB Hematocrit 36.7 (L) 40 - 50 % [facility] MAIN LAB MCV 89.8 80 - 100 FL [facility] MAIN LAB MCH 30.1 26 - 34 PG [facility] MAIN LAB MCHC 33.5 32.0 - 36.0 G/DL [facility] MAIN LAB RDW 12.3 11 - 15 % [facility] MAIN LAB Platelet Count 204 150 - 400 K/UL [facility] MAIN LAB MPV 8.4 7 - 11 FL [facility] MAIN LAB Neutrophils 43 41 - 77 % [facility] MAIN LAB Lymphocytes 41 24 - 44 % [facility] MAIN LAB Monocytes 11 4 - 12 % [facility] MAIN LAB Eosinophils 4 0 - 5 % [facility] MAIN LAB Basophils 1 0 - 2 % [facility] MAIN LAB Absolute 2.10 1.8 - 7.0 K/UL [facility] MAIN LAB Neutrophil Count Absolute Lymph 2.00 1.0 - 4.8 K/UL [facility] MAIN LAB Count Absolute 0.50 0 - 0.80 K/UL MAIN LAB Monocyte Count Absolute 0.20 0 - 0.45 K/UL MAIN LAB Eosinophil Count Absolute 0.00 0 - 0.20 K/UL MAIN LAB Basophil Count Specimen Blood - Blood Performing Organization Address City/State/Zipcode Phone Number MAIN LAB [address] [place] [address] * POC GLUCOSE (09/06/2013 3:39 AM CDT) Glucose, POC 295 (H) 70 - 100 MG/DL MAIN LAB Specimen Performing Organization Address City/[facility]/Zipcode Phone Number MAIN LAB [address] [place] [address] * POC GLUCOSE (09/05/2013 9:16 PM CDT) Glucose, POC 262 (H) 70 - 100 MG/DL MAIN LAB Specimen Performing Organization Address City/[facility] Phone Number MAIN LAB [address] [place] [address] * POC GLUCOSE (09/05/2013 4:23 PM CDT) Glucose, POC 254 (H) 70 - 100 MG/DL MAIN LAB Specimen Performing Organization Address City/[facility] Phone Number MAIN LAB [address] [place] [address] * POC GLUCOSE (09/05/2013 4:01 PM CDT) Glucose, POC 232 (H) 70 - 100 MG/DL MAIN LAB Specimen Performing Organization Address City/[facility] Phone Number MAIN LAB [address] [place] [address] * POC GLUCOSE (09/05/2013 1:58 PM CDT) Glucose, POC 236 (H) 70 - 100 MG/DL MAIN LAB Specimen Performing Organization Address City/[facility]/Zipcode Phone Number MAIN LAB [address] [place] [address] * POC GLUCOSE (09/05/2013 8:29 AM CDT) Glucose, POC 184 (H) 70 - 100 MG/DL K[facility] MAIN LAB Specimen Performing Organization Address City/[facility]/Zipcode Phone Number MAIN LAB [address] [place] [address] * HEMOGLOBIN A1C (09/05/2013 5:18 AM CDT) Hemoglobin A1C 10.0 (H) 4.0 - 6.0 % K[facility] MAIN LAB Comment: NOTE NEW REFERENCE RANGES For patients with Type I or Type II Diabetes Mellitus, the ADA recommends maintaining the A1c level <7%. Specimen Performing Organization Address [facility] Phone Number MAIN LAB [address] [place] [address] * PHOSPHORUS (09/05/2013 5:18 AM CDT) Phosphorus 3.4 2.0 - 4.0 MG/DL K[facility] MAIN LAB Specimen Blood - Blood Performing Organization Address [facility] Phone Number MAIN LAB [address] [place] [address] * MAGNESIUM (09/05/2013 5:18 AM CDT) Magnesium 1.8 1.6 - 2.6 MG/DL K[facility] MAIN LAB Specimen Blood - Blood Performing Organization Address [facility] Phone Number [facility] MAIN LAB [address] [place] [address] * BASIC METABOLIC PANEL (09/05/2013 5:18 AM CDT) Sodium 139 137 - 147 MMOL/L [facility] MAIN LAB Potassium 3.8 3.5 - 5.1 MMOL/L [facility] MAIN LAB Chloride 102 98 - 110 MMOL/L [facility] MAIN LAB CO2 32 (H) 21 - 30 MMOL/L [facility] MAIN LAB Anion Gap 5 (L) 8 - 12 [facility] MAIN LAB Glucose 200 (H) 70 - 100 MG/DL [facility] MAIN LAB Blood Urea 13 7 - 25 MG/DL [facility] MAIN LAB Nitrogen Creatinine 0.88 0.4 - 1.24 MG/DL [facility] MAIN LAB Calcium 8.9 8.6 - 10.3 MG/DL [facility] MAIN LAB eGFR Non >60 >60 ML/MIN/1.73 SQM [facility] MAIN LAB Comment: [place] The eGFR is not validated for use in drug dosing adjustments.Continue to use estimated creatinine clearance per dosing reference text.Please contact the Clinical Pharmacist for questions. eGFR >60 >60 ML/MIN/1.73 SQM [facility] MAIN LAB [place] Comment: The eGFR is not validated for use in drug dosing adjustments.Continue to use estimated creatinine clearance per dosing reference text.Please contact the Clinical Pharmacist for questions. Specimen Blood - Blood Performing Organization Address City/State/Zipcode Phone Number [facility] MAIN LAB [address] [place] [address] * CBC AND DIFF (09/05/2013 5:18 AM CDT) White Blood 4.2 (L) 4.5 - 11.0 K/UL [facility] MAIN LAB Cells RBC 4.12 (L) 4.4 - 5.5 M/UL [facility] MAIN LAB Hemoglobin 12.4 (L) 13.5 - 16.5 GM/DL [facility] MAIN LAB Hematocrit 36.9 (L) 40 - 50 % [facility] MAIN LAB MCV 89.7 80 - 100 FL [facility] MAIN LAB MCH 30.1 26 - 34 PG [facility] MAIN LAB MCHC 33.6 32.0 - 36.0 G/DL [facility] MAIN LAB RDW 12.5 11 - 15 % [facility] MAIN LAB Platelet Count 194 150 - 400 K/UL [facility] MAIN LAB MPV 8.3 7 - 11 FL [facility] MAIN LAB Neutrophils 47 41 - 77 % [facility] MAIN LAB Lymphocytes 39 24 - 44 % [facility] MAIN LAB Monocytes 10 4 - 12 % [facility] MAIN LAB Eosinophils 4 0 - 5 % [facility] MAIN LAB Basophils 0 0 - 2 % [facility] MAIN LAB Absolute 2.00 1.8 - 7.0 K/UL [facility] MAIN LAB Neutrophil Count Absolute Lymph 1.60 1.0 - 4.8 K/UL [facility] MAIN [facility] Count Absolute 0.40 0 - 0.80 K/UL [facility] MAIN LAB Monocyte Count Absolute 0.20 0 - 0.45 K/UL [facility] MAIN LAB Eosinophil Count Absolute 0.00 0 - 0.20 K/UL [facility] MAIN LAB Basophil Count Specimen Blood - Blood Performing Organization Address City/State/Zipcode Phone Number [facility] MAIN LAB [address] [place] [address] * POC GLUCOSE (09/05/2013 3:38 AM CDT) Glucose, POC 231 (H) 70 - 100 MG/DL K[facility] MAIN LAB Specimen Performing Organization Address City/[facility]/Zipcode Phone Number [facility] MAIN LAB [address] [place] [address] * POC GLUCOSE (09/04/2013 9:13 PM CDT) Glucose, POC 262 (H) 70 - 100 MG/DL [facility] MAIN LAB Specimen Performing Organization Address City/[facility]/Zipcode Phone Number MAIN LAB [address] [place] [address] * POC GLUCOSE (09/04/2013 5:32 PM CDT) Glucose, POC 238 (H) 70 - 100 MG/DL [facility] MAIN LAB Specimen Performing Organization Address [facility] Phone Number MAIN LAB [address] [place] [address] * POC GLUCOSE (09/04/2013 2:40 PM CDT) Glucose, POC 204 (H) 70 - 100 MG/DL MAIN LAB Specimen Performing Organization Address City/[facility] Phone Number MAIN LAB [address] [place] [address] * POC GLUCOSE (09/04/2013 10:03 AM CDT) Glucose, POC 207 (H) 70 - 100 MG/DL MAIN LAB Specimen Performing Organization Address [facility] Phone Number MAIN LAB [address] [place] [address] * POC GLUCOSE (09/04/2013 8:31 AM CDT) Glucose, POC 215 (H) 70 - 100 MG/DL MAIN LAB Specimen Performing Organization Address [facility] Phone Number MAIN LAB [address] [place] [address] * PHOSPHORUS (09/04/2013 5:40 AM CDT) Phosphorus 2.7 2.0 - 4.0 MG/DL MAIN LAB Specimen Blood - Blood Performing Organization Address City/[facility] Phone Number MAIN LAB [address] [place] [address] * MAGNESIUM (09/04/2013 5:40 AM CDT) Magnesium 1.9 1.6 - 2.6 MG/DL MAIN LAB Specimen Blood - Blood Performing Organization Address [facility] Phone Number MAIN LAB [address] [place] [address] * BASIC METABOLIC PANEL (09/04/2013 5:40 AM CDT) Sodium 138 137 - 147 MMOL/L K[facility] MAIN LAB Potassium 3.8 3.5 - 5.1 MMOL/L [facility] MAIN LAB Chloride 101 98 - 110 MMOL/L [facility] MAIN LAB CO2 33 (H) 21 - 30 MMOL/L [facility] MAIN LAB Anion Gap 4 (L) 8 - 12 [facility] MAIN LAB Glucose 195 (H) 70 - 100 MG/DL [facility] MAIN LAB Blood Urea 14 7 - 25 MG/DL [facility] MAIN LAB Nitrogen Creatinine 1.01 0.4 - 1.24 MG/DL [facility] MAIN LAB Calcium 8.7 8.6 - 10.3 MG/DL [facility] MAIN LAB eGFR Non >60 >60 ML/MIN/1.73 SQM [facility] MAIN LAB Comment: [place] The eGFR is not validated for use in drug dosing adjustments.Continue to use estimated creatinine clearance per dosing reference text.Please contact the Clinical Pharmacist for questions. eGFR >60 >60 ML/MIN/1.73 SQM [facility] MAIN LAB [place] Comment: The eGFR is not validated for use in drug dosing adjustments.Continue to use estimated creatinine clearance per dosing reference text.Please contact the Clinical Pharmacist for questions. Specimen Blood - Blood Performing Organization Address City/State/Zipcode Phone Number MAIN LAB [address] [place] [address] * CBC AND DIFF (09/04/2013 5:40 AM CDT) Pathologist [facility] White Blood 4.6 4.5 - 11.0 K/UL [facility] MAIN LAB Cells RBC 4.00 (L) 4.4 - 5.5 M/UL [facility] MAIN LAB Hemoglobin 12.1 (L) 13.5 - 16.5 GM/DL [facility] MAIN LAB Hematocrit 35.7 (L) 40 - 50 % [facility] MAIN LAB MCV 89.2 80 - 100 FL [facility] MAIN LAB MCH 30.2 26 - 34 PG [facility] MAIN LAB MCHC 33.9 32.0 - 36.0 G/DL [facility] MAIN LAB RDW 12.3 11 - 15 % [facility] MAIN LAB Platelet Count 189 150 - 400 K/UL [facility] MAIN LAB MPV 8.0 7 - 11 FL [facility] MAIN LAB Neutrophils 46 41 - 77 % [facility] MAIN LAB Lymphocytes 38 24 - 44 % [facility] MAIN LAB Monocytes 12 4 - 12 % [facility] MAIN LAB Eosinophils 3 0 - 5 % [facility] MAIN LAB Basophils 1 0 - 2 % [facility] MAIN LAB Absolute 2.10 1.8 - 7.0 K/UL [facility] MAIN LAB Neutrophil Count Absolute Lymph 1.70 1.0 - 4.8 K/UL [facility] MAIN LAB Count Absolute 0.50 0 - 0.80 K/UL MAIN LAB Monocyte Count Absolute 0.10 0 - 0.45 K/UL MAIN LAB Eosinophil Count Absolute 0.00 0 - 0.20 K/UL MAIN LAB Basophil Count Specimen Blood - Blood Performing Organization Address City/[facility] Phone Number MAIN LAB [address] [place] [address] * POC GLUCOSE (09/04/2013 3:43 AM CDT) Glucose, POC 310 (H) 70 - 100 MG/DL MAIN LAB Specimen Performing Organization Address [facility] Phone Number MAIN LAB [address] [place] [phone] * POC GLUCOSE (09/04/2013 12:19 AM CDT) Glucose, POC 278 (H) 70 - 100 MG/DL MAIN LAB Specimen Performing Organization Address [facility] Phone Number MAIN LAB [address] [place] [phone] * VANCOMYCIN TROUGH (09/03/2013 8:35 PM CDT) Vancomycin 11.5 10.0 - 20.0 MCG/ML MAIN LAB Trough Specimen Blood, venous - Blood Performing Organization Address [facility] Phone Number MAIN LAB [address] [place] [address] * POC GLUCOSE (09/03/2013 7:57 PM CDT) Glucose, POC 218 (H) 70 - 100 MG/DL MAIN LAB Specimen Performing Organization Address [facility] Phone Number MAIN LAB [address] [place] [address] * POC GLUCOSE (09/03/2013 6:40 PM CDT) Glucose, POC 175 (H) 70 - 100 MG/DL MAIN LAB Specimen Performing Organization Address [facility] Phone Number MAIN LAB [address] [place] [phone] * POC GLUCOSE (09/03/2013 2:41 PM CDT) Glucose, POC 234 (H) 70 - 100 MG/DL [facility] MAIN LAB Specimen Performing Organization Address [facility] Phone Number [facility] MA[facility] [address] [place] [address] * POC GLUCOSE (09/03/2013 10:13 AM CDT) Glucose, POC 267 (H) 70 - 100 MG/DL [facility] MAIN LAB Specimen Performing Organization Address [facility] Phone Number MAIN LAB [address] [place] [address] * POC GLUCOSE (09/03/2013 8:29 AM CDT) Glucose, POC 271 (H) 70 - 100 MG/DL MAIN LAB Specimen Performing Organization Address [facility] Phone Number MAIN LAB [address] [place] [address] * PHOSPHORUS (09/03/2013 4:54 AM CDT) Phosphorus 3.7 2.0 - 4.0 MG/DL MAIN LAB Specimen Blood - Blood Performing Organization Address [facility] Phone Number [facility] [address] [place] [address] * MAGNESIUM (09/03/2013 4:54 AM CDT) Magnesium 1.7 1.6 - 2.6 MG/DL MAIN LAB Specimen Blood - Blood Performing Organization Address [facility] Phone Number MAIN LAB [address] [place] [address] * BASIC METABOLIC PANEL (09/03/2013 4:54 AM CDT) Sodium 138 137 - 147 MMOL/L [facility] MAIN LAB Potassium 3.9 3.5 - 5.1 MMOL/L [facility] MAIN [facility] Chloride 100 98 - 110 MMOL/L [facility] MAIN [facility] CO2 32 (H) 21 - 30 MMOL/L [facility] MAIN [facility] Anion Gap 6 (L) 8 - 12 [facility] MAIN LAB Glucose 155 (H) 70 - 100 MG/DL [facility] MAIN [facility] Blood Urea 11 7 - 25 MG/DL [facility] MAIN LAB Nitrogen Creatinine 0.92 0.4 - 1.24 MG/DL [facility] MAIN LAB Calcium 8.5 (L) 8.6 - 10.3 MG/DL [facility] MAIN LAB eGFR Non >60 >60 ML/MIN/1.73 SQM [facility] MAIN [facility] Comment: [place] The eGFR is not validated for use in drug dosing adjustments.Continue to use estimated creatinine clearance per dosing reference text.Please contact the Clinical Pharmacist for questions. eGFR >60 >60 ML/MIN/1.73 SQM [facility] MAIN LAB [place] Comment: The eGFR is not validated for use in drug dosing adjustments.Continue to use estimated creatinine clearance per dosing reference text.Please contact the Clinical Pharmacist for questions. Specimen Blood - Blood Performing Organization Address City/[facility]/Zipcode Phone Number MAIN LAB [address] [place] [address] * CBC AND DIFF (09/03/2013 4:54 AM CDT) White Blood 4.8 4.5 - 11.0 K/UL [facility] MAIN LAB Cells RBC 4.11 (L) 4.4 - 5.5 M/UL [facility] MAIN [facility] Hemoglobin 12.2 (L) 13.5 - 16.5 GM/DL [facility] MAIN LAB Hematocrit 36.8 (L) 40 - 50 % [facility] MAIN LAB MCV 89.4 80 - 100 FL [facility] MAIN LAB MCH 29.6 26 - 34 PG [facility] MAIN LAB MCHC 33.1 32.0 - 36.0 G/DL [facility] MAIN [facility] RDW 12.2 11 - 15 % [facility] MAIN [facility] Platelet Count 213 150 - 400 K/UL [facility] MAIN [facility] MPV 8.5 7 - 11 FL [facility] MAIN LAB Neutrophils 53 41 - 77 % [facility] MAIN [facility] Lymphocytes 32 24 - 44 % [facility] MAIN [facility] Monocytes 12 4 - 12 % [facility] MAIN [facility] Eosinophils 2 0 - 5 % [facility] MAIN [facility] Basophils 1 0 - 2 % [facility] MAIN [facility] Absolute 2.60 1.8 - 7.0 K/UL [facility] MAIN LAB Neutrophil Count Absolute Lymph 1.60 1.0 - 4.8 K/UL [facility] MAIN [facility] Count Absolute 0.60 0 - 0.80 K/UL [facility] MAIN [facility] Monocyte Count Absolute 0.10 0 - 0.45 K/UL [facility] MAIN [facility] Eosinophil Count Absolute 0.00 0 - 0.20 K/UL [facility] MAIN [facility] Basophil Count Specimen Blood - Blood Performing Organization Address City/State/Zipcode Phone Number MAIN LAB [address] [place] [address] * POC GLUCOSE (09/03/2013 3:45 AM CDT) Glucose, POC 163 (H) 70 - 100 MG/DL [facility] MAIN LAB Specimen Performing Organization Address City/[facility] Phone Number [facility] [address] [place] [address] * POC GLUCOSE (09/02/2013 9:05 PM CDT) Glucose, POC 283 (H) 70 - 100 MG/DL [facility] MAIN [facility] Specimen Performing Organization Address [facility] Phone Number [facility] [address] [place] [address] * POC GLUCOSE (09/02/2013 5:26 PM CDT) Glucose, POC 123 (H) 70 - 100 MG/DL MAIN LAB Specimen Performing Organization Address [facility] Phone Number MAIN LAB [address] [place] [address] * POC GLUCOSE (09/02/2013 2:01 PM CDT) Glucose, POC 134 (H) 70 - 100 MG/DL MAIN LAB Specimen Performing Organization Address [facility] Phone Number MAIN LAB [address] [place] [address] * CULTURE-TB (AFB) (09/02/2013 1:15 PM CDT) Battery Name AFB CULTURE MAIN LAB Specimen TISSUE SPECIMEN MAIN LAB Description ABDOMEN Special NONE MAIN LAB Requests Culture NO GROWTH OF MYCOBACTERIA AT 6 MAIN LAB WEEKS Report Status FINAL MAIN LAB 10/20/2013 Specimen Tissue Specimen Performing Organization Address [facility] Phone Number MAIN LAB [address] [place] [address] * CULTURE-WOUND/TISSUE/FLUID(AEROBIC ONLY)W/SENSITIVITY (09/02/2013 1:15 PM CDT) Battery Name ROUTINE CULTURE MAIN LAB Specimen TISSUE SPECIMEN MAIN LAB Description ABDOMEN Special NONE MAIN LAB Requests Direct Gram FEW MAIN LAB Stain NEUTROPHILS MANY RBC'S NO ORGANISMS SEEN Culture STAPHYLOCOCCUS AUREUS MAIN LAB isolated from broth only See previous susceptibility from 09.01.13. Report Status FINAL MAIN LAB 09/07/2013 Specimen Tissue Specimen Performing Organization Address [facility] Phone Number MAIN LAB [address] [place] [address] * CULTURE-ANAEROBIC (09/02/2013 1:15 PM CDT) Battery Name ANAEROBE CULTURE KU MAIN LAB Specimen TISSUE SPECIMEN MAIN LAB Description ABDOMEN Special NONE KU MAIN LAB Requests Culture NO ANAEROBES ISOLATED MAIN LAB Report Status FINAL MAIN LAB 09/08/2013 Specimen Tissue Specimen Performing Organization Address City/[facility]/Zipcode Phone Number MAIN LAB [address] [place] [address] * CULTURE-FUNGAL,OTHER (09/02/2013 1:15 PM CDT) Battery Name FUNGUS CULTURE KU MAIN LAB Specimen TISSUE SPECIMEN MAIN LAB Description ABDOMEN Special NONE KU MAIN LAB Requests Culture NO GROWTH OF FUNGUS AT 4 WEEKS MAIN LAB Report Status FINAL MAIN LAB 10/06/2013 Specimen Tissue Specimen Performing Organization Address City/[facility] Phone Number MAIN LAB [address] [place] [address] * GRAM STAIN (09/02/2013 1:15 PM CDT) Battery Name GRAM STAIN MAIN LAB Specimen TISSUE SPECIMEN MAIN LAB Description ABDOMEN Special NONE MAIN LAB Requests Gram Stain FEW KU MAIN LAB NEUTROPHILS MANY RBC'S NO ORGANISMS SEEN Report Status FINAL MAIN LAB 09/02/2013 Specimen Tissue Specimen Performing Organization Address City/[facility]/Zipcode Phone Number MAIN LAB [address] [place] [address] * POC GLUCOSE (09/02/2013 12:09 PM CDT) Glucose, POC 133 (H) 70 - 100 MG/DL KU MAIN LAB Specimen Performing Organization Address City/[facility]/Zipcode Phone Number KU MAIN LAB [address] [place] [address] * POC GLUCOSE (09/02/2013 11:19 AM CDT) Glucose, POC 119 (H) 70 - 100 MG/DL MAIN LAB Specimen Performing Organization Address City/[facility]/Zipcode Phone Number KU MAIN LAB [address] [place] [address] * POC GLUCOSE (09/02/2013 10:36 AM CDT) Glucose, POC 72 70 - 100 MG/DL MAIN LAB Specimen Performing Organization Address City/[facility]/Zipcode Phone Number MAIN LAB [address] [place] [address] * BLOOD TYPE CONFIRMATION - ORDER ONLY IF REQUESTED BY LAB (09/02/2013 10:00 AM CDT) ABO/RH(D) A POS MAIN LAB Specimen Performing Organization Address City/[facility] Phone Number MAIN LAB [address] [place] [address] * TYPE & CROSSMATCH (09/02/2013 8:50 AM CDT) Units Ordered 2 MAIN LAB Crossmatch 09/05/2013 MAIN LAB Expires Record Check 2ND TYPE REQUIRED MAIN LAB ABO/RH(D) A POS MAIN LAB Antibody Screen NEG MAIN LAB Electronic YES MAIN LAB Crossmatch Specimen Blood - Blood Performing Organization Address [facility] Phone Number MAIN LAB [address] [place] [phone] * POC GLUCOSE (09/02/2013 8:09 AM CDT) Glucose, POC 278 (H) 70 - 100 MG/DL MAIN LAB Specimen Performing Organization Address [facility] Phone Number MAIN LAB [address] [place] [address] * PHOSPHORUS (09/02/2013 5:05 AM CDT) Phosphorus 2.2 2.0 - 4.0 MG/DL MAIN LAB Specimen Blood - Blood Performing Organization Address [facility] Phone Number MAIN LAB [address] [place] [address] * MAGNESIUM (09/02/2013 5:05 AM CDT) Magnesium 1.7 1.6 - 2.6 MG/DL MAIN LAB Specimen Blood - Blood Performing Organization Address [facility] Phone Number MAIN LAB [address] [place] [address] * BASIC METABOLIC PANEL (09/02/2013 5:05 AM CDT) Sodium 135 (L) 137 - 147 MMOL/L KU MAIN LAB Potassium 3.7 3.5 - 5.1 MMOL/L KU MAIN LAB Chloride 98 98 - 110 MMOL/L KU MAIN LAB CO2 32 (H) 21 - 30 MMOL/L KU MAIN LAB Anion Gap 5 (L) 8 - 12 K[facility] MAIN LAB Glucose 271 (H) 70 - 100 MG/DL KU MAIN LAB Blood Urea 13 7 - 25 MG/DL KU MAIN LAB Nitrogen Creatinine 0.81 0.4 - 1.24 MG/DL K[facility] MAIN LAB Calcium 8.5 (L) 8.6 - 10.3 MG/DL KU MAIN LAB eGFR Non >60 >60 ML/MIN/1.73 SQM KU MAIN LAB Comment: [place] The eGFR is not validated for use in drug dosing adjustments.Continue to use estimated creatinine clearance per dosing reference text.Please contact the Clinical Pharmacist for questions. eGFR >60 >60 ML/MIN/1.73 SQM KU MAIN LAB [place] Comment: The eGFR is not validated for use in drug dosing adjustments.Continue to use estimated creatinine clearance per dosing reference text.Please contact the Clinical Pharmacist for questions. Specimen Blood - Blood Performing Organization Address City/State/Zipcode Phone Number KU MAIN LAB [address] [place] [address] * CBC AND DIFF (09/02/2013 5:05 AM CDT) White Blood 6.0 4.5 - 11.0 K/UL KU MAIN LAB Cells RBC 4.15 (L) 4.4 - 5.5 M/UL KU MAIN LAB Hemoglobin 12.6 (L) 13.5 - 16.5 GM/DL KU MAIN LAB Hematocrit 37.0 (L) 40 - 50 % KU MAIN LAB MCV 89.2 80 - 100 FL KU MAIN LAB MCH 30.3 26 - 34 PG KU MAIN LAB MCHC 34.0 32.0 - 36.0 G/DL KU MAIN LAB RDW 12.5 11 - 15 % KU MAIN LAB Platelet Count 196 150 - 400 K/UL KU MAIN LAB MPV 8.9 7 - 11 FL KU MAIN LAB Neutrophils 55 41 - 77 % KU MAIN LAB Lymphocytes 33 24 - 44 % KU MAIN LAB Monocytes 10 4 - 12 % KU MAIN LAB Eosinophils 2 0 - 5 % KU MAIN LAB Basophils 0 0 - 2 % KU MAIN LAB Absolute 3.30 1.8 - 7.0 K/UL KU MAIN LAB Neutrophil Count Absolute Lymph 2.00 1.0 - 4.8 K/UL KU MAIN LAB Count Absolute 0.60 0 - 0.80 K/UL KU MAIN LAB Monocyte Count Absolute 0.10 0 - 0.45 K/UL KU MAIN LAB Eosinophil Count Absolute 0.00 0 - 0.20 K/UL MAIN LAB Basophil Count Specimen Blood - Blood Performing Organization Address [facility] Phone Number MAIN LAB [address] [place] [address] * POC GLUCOSE (09/02/2013 3:01 AM CDT) Glucose, POC 345 (H) 70 - 100 MG/DL MAIN LAB Specimen Performing Organization Address [facility] Phone Number MAIN LAB [address] [place] [address] * POC GLUCOSE (09/01/2013 9:05 PM CDT) Glucose, POC 255 (H) 70 - 100 MG/DL MAIN LAB Specimen Performing Organization Address [facility] Phone Number MAIN LAB [address] [place] [address] * POC GLUCOSE (09/01/2013 4:32 PM CDT) Glucose, POC 200 (H) 70 - 100 MG/DL MAIN LAB Specimen Performing Organization Address [facility] Phone Number MAIN LAB [address] [place] [address] * VANCOMYCIN TROUGH (09/01/2013 3:10 PM CDT) Vancomycin 5.7 (L) 10.0 - 20.0 MCG/ML MAIN LAB Trough Specimen Blood, venous - Blood Performing Organization Address [facility] Phone Number MAIN LAB [address] [place] [address] * POC GLUCOSE (09/01/2013 2:42 PM CDT) Glucose, POC 193 (H) 70 - 100 MG/DL MAIN LAB Specimen Performing Organization Address [facility] Phone Number MAIN LAB [address] [place] [address] * GRAM STAIN (09/01/2013 9:30 AM CDT) Battery Name GRAM STAIN [facility]U MAIN LAB Specimen SWAB MAIN LAB Description ABDOMINAL ABSCESS Special NONE KU MAIN LAB Requests Gram Stain NO NEUTROPHILS SEEN MAIN LAB FEW RBC'S RARE GRAM POSITIVE COCCI RESEMBLING STAPHYLOCOCCI Report Status FINAL [facility] MAIN LAB 09/01/2013 Specimen Swab Performing Organization Address [facility]/Zipcode Phone Number MAIN LAB [address] [place] [address] * CULTURE-WOUND/TISSUE/FLUID(AEROBIC ONLY)W/SENSITIVITY (09/01/2013 9:30 AM CDT) Battery Name ROUTINE CULTURE KU MAIN LAB Specimen SWAB KU MAIN LAB Description ABDOMINAL ABSCESS Special NONE KU MAIN LAB Requests Direct Gram NO NEUTROPHILS SEEN KU MAIN LAB Stain FEW RBC'S RARE GRAM POSITIVE COCCI RESEMBLING STAPHYLOCOCCI Culture Moderate growth KU MAIN LAB STAPHYLOCOCCUS AUREUS Negative for PBP2A, indicating that isolate is MSSA (A) Report Status FINAL MAIN LAB 09/03/2013 Specimen Swab Antibiotic Method Susceptibility Organism Clindamycin KORI (MCG/ML) INTERPRETATION <=0.5 SUSCEPTIBLE: Susceptible Moderate growth staphylococcus aureus Erythromycin KORI (MCG/ML) INTERPRETATION <=0.5 SUSCEPTIBLE: Susceptible Moderate growth staphylococcus aureus Oxacillin KORI (MCG/ML) INTERPRETATION <=0.25 SUSCEPTIBLE: Susceptible Moderate growth staphylococcus aureus Vancomycin KORI (MCG/ML) INTERPRETATION <=0.5 SUSCEPTIBLE: Susceptible Moderate growth staphylococcus aureus Levofloxacin KORI (MCG/ML) INTERPRETATION <=0.5 SUSCEPTIBLE: Susceptible Moderate growth staphylococcus aureus Tetracycline KORI (MCG/ML) INTERPRETATION <=0.5 SUSCEPTIBLE: Susceptible Moderate growth staphylococcus aureus Trimethsulfa KORI (MCG/ML) INTERPRETATION <=1/19 SUSCEPTIBLE: Susceptible Moderate growth staphylococcus aureus Method KORI (MCG/ML) INTERPRETATION KORI (MCG/ML) INTERPRETATION Moderate growth staphylococcus aureus Performing Organization Address [facility] Phone Number MAIN LAB [address] [place] [address] * POC GLUCOSE (09/01/2013 9:14 AM CDT) Pathologist [facility] Glucose, POC 283 (H) 70 - 100 MG/DL MAIN LAB Specimen Performing Organization Address [facility] Phone Number MAIN LAB [address] [place] [address] * BASIC METABOLIC PANEL (09/01/2013 5:00 AM CDT) Pathologist [facility] Sodium 134 (L) 137 - 147 MMOL/L KU MAIN LAB Potassium 3.9 3.5 - 5.1 MMOL/L KU MAIN LAB Chloride 100 98 - 110 MMOL/L KU MAIN LAB CO2 28 21 - 30 MMOL/L KU MAIN LAB Anion Gap 6 (L) 8 - 12 KU MAIN LAB Glucose 333 (H) 70 - 100 MG/DL KU MAIN LAB Blood Urea 13 7 - 25 MG/DL KU MAIN LAB Nitrogen Creatinine 0.86 0.4 - 1.24 MG/DL KU MAIN LAB Calcium 8.3 (L) 8.6 - 10.3 MG/DL KU MAIN LAB eGFR Non >60 >60 ML/MIN/1.73 SQM KU MAIN LAB Comment: [place] The eGFR is not validated for use in drug dosing adjustments.Continue to use estimated creatinine clearance per dosing reference text.Please contact the Clinical Pharmacist for questions. eGFR >60 >60 ML/MIN/1.73 SQM KU MAIN LAB [place] Comment: The eGFR is not validated for use in drug dosing adjustments.Continue to use estimated creatinine clearance per dosing reference text.Please contact the Clinical Pharmacist for questions. Specimen Blood - Blood Performing Organization Address City/[facility]/Zipcode Phone Number MAIN LAB [address] [place] [address] * PHOSPHORUS (09/01/2013 5:00 AM CDT) Phosphorus 2.3 2.0 - 4.0 MG/DL MAIN LAB Specimen Blood - Blood Performing Organization Address [facility]/Zipcode Phone Number MAIN LAB [address] [place] [phone] * MAGNESIUM (09/01/2013 5:00 AM CDT) Magnesium 1.6 1.6 - 2.6 MG/DL MAIN LAB Specimen Blood - Blood Performing Organization Address [facility] Phone Number MAIN LAB [address] [place] [address] * CBC AND DIFF (09/01/2013 5:00 AM CDT) White Blood 5.4 4.5 - 11.0 K/UL KU MAIN LAB Cells RBC 4.28 (L) 4.4 - 5.5 M/UL KU MAIN LAB Hemoglobin 12.6 (L) 13.5 - 16.5 GM/DL KU MAIN LAB Hematocrit 38.0 (L) 40 - 50 % KU MAIN LAB MCV 88.8 80 - 100 FL KU MAIN LAB MCH 29.5 26 - 34 PG K[facility] MAIN LAB MCHC 33.3 32.0 - 36.0 G/DL K[facility] MAIN LAB RDW 12.2 11 - 15 % KU MAIN LAB Platelet Count 171 150 - 400 K/UL MAIN LAB MPV 9.5 7 - 11 FL KU MAIN LAB Neutrophils 68 41 - 77 % KU MAIN LAB Lymphocytes 21 (L) 24 - 44 % MAIN LAB Monocytes 9 4 - 12 % MAIN LAB Eosinophils 2 0 - 5 % MAIN LAB Basophils 0 0 - 2 % MAIN LAB Absolute 3.60 1.8 - 7.0 K/UL KU MAIN LAB Neutrophil Count Absolute Lymph 1.10 1.0 - 4.8 K/UL MAIN LAB Count Absolute 0.50 0 - 0.80 K/UL MAIN LAB Monocyte Count Absolute 0.10 0 - 0.45 K/UL MAIN LAB Eosinophil Count Absolute 0.00 0 - 0.20 K/UL MAIN LAB Basophil Count Specimen Blood - Blood Performing Organization Address City/[facility]/Zipcode Phone Number MAIN LAB [address] [place] [address] * POC GLUCOSE (09/01/2013 3:53 AM CDT) Glucose, POC 339 (H) 70 - 100 MG/DL MAIN LAB Specimen Performing Organization Address City/[facility] Phone Number MAIN LAB [address] [place] [address] * POC GLUCOSE (08/31/2013 11:14 PM CDT) Glucose, POC 314 (H) 70 - 100 MG/DL MAIN LAB Specimen Performing Organization Address [facility] Phone Number MAIN LAB [address] [place] [address] * POC GLUCOSE (08/31/2013 5:58 PM CDT) Glucose, POC 309 (H) 70 - 100 MG/DL MAIN LAB Specimen Performing Organization Address City/[facility]/Zipcode Phone Number MAIN LAB [address] [place] [address] * POC GLUCOSE (08/31/2013 12:33 PM CDT) Glucose, POC 332 (H) 70 - 100 MG/DL MAIN LAB Specimen Performing Organization Address [facility] Phone Number MAIN LAB [address] [place] [address] * POC GLUCOSE (08/31/2013 9:05 AM CDT) Glucose, POC 247 (H) 70 - 100 MG/DL KU MAIN LAB Specimen Performing Organization Address [facility] Phone Number MAIN LAB [address] [place] [address] * LACTIC ACID(LACTATE) (08/31/2013 8:40 AM CDT) Lactic Acid 0.7 0.5 - 2.0 MMOL/L KU MAIN LAB Specimen Blood - Blood Performing Organization Address [facility] Phone Number MAIN LAB [address] [place] [address] * PHOSPHORUS (08/31/2013 7:28 AM CDT) Phosphorus 2.0 2.0 - 4.0 MG/DL MAIN LAB Specimen Blood - Blood Performing Organization Address [facility] Phone Number MAIN LAB [address] [place] [address] * MAGNESIUM (08/31/2013 7:28 AM CDT) Magnesium 1.6 1.6 - 2.6 MG/DL MAIN LAB Specimen Blood - Blood Performing Organization Address [facility] Phone Number MAIN LAB [address] [place] [address] * BASIC METABOLIC PANEL (08/31/2013 7:28 AM CDT) Sodium 135 (L) 137 - 147 MMOL/L KU MAIN LAB Potassium 3.9 3.5 - 5.1 MMOL/L [facility] MAIN LAB Chloride 100 98 - 110 MMOL/L [facility] MAIN LAB CO2 31 (H) 21 - 30 MMOL/L [facility] MAIN LAB Anion Gap 4 (L) 8 - 12 K[facility] MAIN LAB Glucose 247 (H) 70 - 100 MG/DL K[facility] MAIN LAB Blood Urea 12 7 - 25 MG/DL K[facility] MAIN LAB Nitrogen Creatinine 0.68 0.4 - 1.24 MG/DL K[facility] MAIN LAB Calcium 8.3 (L) 8.6 - 10.3 MG/DL MAIN LAB eGFR Non >60 >60 ML/MIN/1.73 SQM KU MAIN LAB Comment: [place] The eGFR is not validated for use in drug dosing adjustments.Continue to use estimated creatinine clearance per dosing reference text.Please contact the Clinical Pharmacist for questions. eGFR >60 >60 ML/MIN/1.73 SQM K[facility] MAIN LAB [place] Comment: The eGFR is not validated for use in drug dosing adjustments.Continue to use estimated creatinine clearance per dosing reference text.Please contact the Clinical Pharmacist for questions. Specimen Blood - Blood Performing Organization Address City/[facility]/Zipcode Phone Number KU MAIN LAB [address] [place] [address] * CBC AND DIFF (08/31/2013 7:28 AM CDT) White Blood 5.8 4.5 - 11.0 K/UL KU MAIN LAB Cells RBC 4.23 (L) 4.4 - 5.5 M/UL [facility] MAIN LAB Hemoglobin 12.7 (L) 13.5 - 16.5 GM/DL K[facility] MAIN LAB Hematocrit 38.2 (L) 40 - 50 % KU MAIN LAB MCV 90.3 80 - 100 FL K[facility] MAIN LAB MCH 30.0 26 - 34 PG K[facility] MAIN LAB MCHC 33.2 32.0 - 36.0 G/DL K[facility] MAIN LAB RDW 12.3 11 - 15 % [facility] MAIN LAB Platelet Count 180 150 - 400 K/UL K[facility] MAIN LAB MPV 8.6 7 - 11 FL K[facility] MAIN LAB Neutrophils 64 41 - 77 % KU MAIN LAB Lymphocytes 25 24 - 44 % K[facility] MAIN LAB Monocytes 10 4 - 12 % K[facility] MAIN LAB Eosinophils 1 0 - 5 % [facility] MAIN LAB Basophils 0 0 - 2 % [facility] MAIN LAB Absolute 3.70 1.8 - 7.0 K/UL KU MAIN LAB Neutrophil Count Absolute Lymph 1.50 1.0 - 4.8 K/UL K[facility] MAIN LAB Count Absolute 0.60 0 - 0.80 K/UL K[facility] MAIN LAB Monocyte Count Absolute 0.10 0 - 0.45 K/UL K[facility] MAIN LAB Eosinophil Count Absolute 0.00 0 - 0.20 K/UL K[facility] MAIN LAB Basophil Count Specimen Blood - Blood Performing Organization Address City/[facility]/Zipcode Phone Number KU MAIN LAB [address] [place] [address] * CULTURE-URINE W/SENSITIVITY (08/30/2013 11:15 PM CDT) Battery Name URINE CULTURE KU MAIN LAB Specimen URINE KU MAIN LAB Description Special NONE KU MAIN LAB Requests Culture NO GROWTH KU MAIN LAB Report Status FINAL [facility] MAIN LAB 09/01/2013 Specimen Urine - Urine Performing Organization Address City/[facility]/Zipcode Phone Number K[facility] MAIN LAB [address] [place] [address] * URINALYSIS, MICROSCOPIC (08/30/2013 11:15 PM CDT) WBCs,UA NONE 0 - 2 /HPF KU MAIN LAB RBCs,UA NONE 0 - 3 /HPF KU MAIN LAB MucousUA TRACE [facility] MAIN LAB Specimen Urine - Urine Performing Organization Address City/[facility] Phone Number [facility] MAIN [facility] [address] [place] [address] * URINALYSIS DIPSTICK (08/30/2013 11:15 PM CDT) Color,UA YELLOW [facility] MAIN LAB Turbidity,UA CLEAR CLEAR-CLEAR [facility] MAIN LAB Specific 1.017 1.003 - 1.035 KU MAIN LAB [place]-Urine pH,UA 6.0 4.6 - 8.0 KU MAIN LAB Protein,UA NEG NEG-NEG K[facility] MAIN LAB Glucose,UA 4+ (A) NEG-NEG KU MAIN LAB Ketones,UA NEG NEG-NEG K[facility] MAIN LAB Bilirubin,UA NEG NEG-NEG K[facility] MAIN LAB Blood,UA NEG NEG-NEG [facility] MAIN LAB Urobilinogen,UA NORMAL NORM-NORMAL KU MAIN LAB Nitrite,UA NEG NEG-NEG K[facility] MAIN LAB Leukocytes,UA NEG NEG-NEG K[facility] MAIN LAB Specimen Urine - Urine Performing Organization Address [facility] Phone Number [facility] MAIN [facility] [address] [place] [address] * CULTURE-BLOOD W/SENSITIVITY (08/30/2013 10:55 PM CDT) Battery Name BLOOD CULTURE KU MAIN LAB Specimen BLOOD KU MAIN LAB Description NO SITE Special NONE KU MAIN LAB Requests Culture NO GROWTH 5 DAYS KU MAIN LAB Report Status FINAL [facility] MAIN LAB 09/06/2013 Specimen Blood - Blood Performing Organization Address City/[facility]/Zipcode Phone Number K[facility] MAIN LAB [address] [place] [address] * CULTURE-BLOOD W/SENSITIVITY (08/30/2013 9:50 PM CDT) Battery Name BLOOD CULTURE KU MAIN LAB Specimen BLOOD [facility] MAIN LAB Description RIGHT ANTECUBITAL Special NONE KU MAIN LAB Requests Culture NO GROWTH 5 DAYS KU MAIN LAB Report Status FINAL [facility] MAIN LAB 09/05/2013 Specimen Blood - Blood Performing Organization Address City/[facility]/Zipcode Phone Number [facility] MAIN LAB [address] [place] [address] * LACTIC ACID(LACTATE) (08/30/2013 9:50 PM CDT) Lactic Acid 1.8 0.5 - 2.0 MMOL/L K[facility] MAIN LAB Specimen Blood - Blood Performing Organization Address [facility] Phone Number MAIN LAB [address] [place] [address] * PHOSPHORUS (08/30/2013 9:50 PM CDT) Phosphorus 2.0 2.0 - 4.0 MG/DL KU MAIN LAB Specimen Blood - Blood Performing Organization Address [facility] Phone Number MAIN LAB [address] [place] [address] * MAGNESIUM (08/30/2013 9:50 PM CDT) Magnesium 1.6 1.6 - 2.6 MG/DL MAIN LAB Specimen Blood - Blood Performing Organization Address [facility] Phone Number MAIN LAB [address] [place] [phone] * BASIC METABOLIC PANEL (08/30/2013 9:50 PM CDT) Sodium 130 (L) 137 - 147 MMOL/L KU MAIN LAB Potassium 3.7 3.5 - 5.1 MMOL/L K[facility] MAIN LAB Chloride 95 (L) 98 - 110 MMOL/L [facility] MAIN LAB CO2 27 21 - 30 MMOL/L [facility] MAIN LAB Anion Gap 8 8 - 12 [facility] MAIN LAB Glucose 315 (H) 70 - 100 MG/DL K[facility] MAIN LAB Blood Urea 16 7 - 25 MG/DL K[facility] MAIN LAB Nitrogen Creatinine 0.80 0.4 - 1.24 MG/DL [facility] MAIN LAB Calcium 8.6 8.6 - 10.3 MG/DL K[facility] MAIN LAB eGFR Non >60 >60 ML/MIN/1.73 SQM [facility] MAIN LAB Comment: [place] The eGFR is not validated for use in drug dosing adjustments.Continue to use estimated creatinine clearance per dosing reference text.Please contact the Clinical Pharmacist for questions. eGFR >60 >60 ML/MIN/1.73 SQM K[facility] MAIN LAB [place] Comment: The eGFR is not validated for use in drug dosing adjustments.Continue to use estimated creatinine clearance per dosing reference text.Please contact the Clinical Pharmacist for questions. Specimen Blood - Blood Performing Organization Address City/[facility] Phone Number MAIN LAB [address] [place] [address] * CBC AND DIFF (08/30/2013 9:50 PM CDT) White Blood 7.4 4.5 - 11.0 K/UL KU MAIN LAB Cells RBC 4.49 4.4 - 5.5 M/UL [facility] MAIN LAB Hemoglobin 13.6 13.5 - 16.5 GM/DL K[facility] MAIN LAB Hematocrit 40.3 40 - 50 % [facility] MAIN LAB MCV 89.8 80 - 100 FL [facility] MAIN LAB MCH 30.4 26 - 34 PG [facility] MAIN LAB MCHC 33.8 32.0 - 36.0 G/DL [facility] MAIN LAB RDW 12.3 11 - 15 % [facility] MAIN LAB Platelet Count 195 150 - 400 K/UL [facility] MAIN LAB MPV 9.0 7 - 11 FL [facility] MAIN LAB Neutrophils 67 41 - 77 % [facility] MAIN LAB Lymphocytes 20 (L) 24 - 44 % [facility] MAIN LAB Monocytes 12 4 - 12 % [facility] MAIN LAB Eosinophils 1 0 - 5 % [facility] MAIN LAB Basophils 0 0 - 2 % [facility] MAIN LAB Absolute 5.00 1.8 - 7.0 K/UL [facility] MAIN LAB Neutrophil Count Absolute Lymph 1.50 1.0 - 4.8 K/UL [facility] MAIN LAB Count Absolute 0.90 (H) 0 - 0.80 K/UL [facility] MAIN LAB Monocyte Count Absolute 0.00 0 - 0.45 K/UL [facility] MAIN LAB Eosinophil Count Absolute 0.00 0 - 0.20 K/UL [facility] MAIN LAB Basophil Count Specimen Blood - Blood Performing Organization Address [facility]/Zipcode Phone Number MAIN LAB [address] [place] [address] documented in this encounter Visit Diagnoses Diagnosis S/P repair of ventral hernia - Primary Other postprocedural status Wound dehiscence Disruption of external operation (surgical) wound documented in this encounter Administered Medications Action Date Dose Rate Site Medication Order MAR Action 09/08/2013 3:05 PM [employer] 650 mg acetaminophen (TYLENOL) tablet 650 mg Given 650 mg, Oral, EVERY 6 HOURS PRN, Starting Sun09/01/13 at 1636, Until Sun09/08/13 at 1852, Headache, Pain, Temp > 38.5 C, TOTAL ACETAMINOPHEN DOSE NOT TO EXCEED 4GM DAILY, 650 mg Given 09/07/2013 3:20 PM [employer] 650 mg Given 09/07/2013 9:20 AM [employer] 09/07/2013 9:00 PM [employer] 1 mg clonazePAM (KLONOPIN) tablet 1 mg Given 1 mg, Oral, AT BEDTIME DAILY, First dose on Sun08/31/13 at 0000, Until Discontinued 1 mg Given 09/06/2013 9:00 PM CDT 1 mg Given 09/05/2013 9:13 PM CDT 09/02/2013 11:00 AM CDT 12.5 g DEXTROSE 50 % IN WATER (D50W) IV SOLP Given (AcuDose pull) NOW, 1 dose, Sun09/02/13 at 1100, Hesham Touslee: cabinet override NOTE: This is a HIGH ALERT Medication., Hesham Touslee: cabinet override, 09/08/2013 4:33 PM OUTSIDE [employer]ULTANT 5 mg diazepam (VALIUM) tablet 2.5-5 mg Given 2.5-5 mg, Oral, EVERY 6 HOURS PRN, Starting 08/30/13 at 2351, Until Sun09/08/13 at 1852, Muscle Cramps 5 mg Given 09/07/2013 1:27 PM OUT[employer]IDE [employer]SULTANT 5 mg Given 09/02/2013 8:08 PM CDT 09/07/2013 9:00 PM [employer]ANT 40 mg Abdomen:RLQ enoxaparin (LOVENOX) syringe 40 mg Given 40 mg, Subcutaneous, DAILY, First dose on Sun09/03/13 at 2100, Until Discontinued, For patients undergoing surgery: Consult physician in advance -- enoxaparin is an anticoagulant and may need to be held for 12hr prior to surgery or invasive procedures. NOTE: This is a HIGH ALERT Medication., 40 mg Abdomen:LLQ Given 09/06/2013 9:00 PM CDT 40 mg Abdomen:LLQ Given 09/05/2013 9:13 PM CDT 09/02/2013 3:30 PM CDT 50 mcg fentaNYL citrate PF (SUBLIMAZE) Given injection 25-50 mcg 25-50 mcg, Intravenous, NEEDED, Starting Sun09/02/13 at 1355, Until Sun09/02/13 at 1612, Pain, Post anesthesia orders. PRN, may repeat up to 200 mcg. Notify anesthesia for inadequate analgesia. NOTE: This is a HIGH ALERT Medication., PACU (only) 50 mcg Given 09/02/2013 3:06 PM CDT 50 mcg Given 09/02/2013 2:53 PM CDT 08/30/2013 10:10 PM CDT 1 mg Arm, Right HYDROmorphone injection (DILAUDID) Given syringe 1 mg 1 mg, Intravenous, ONCE, 1 dose, 08/30/13 at 2215, NOTE: This is a HIGH ALERT Medication., 08/31/2013 6:15 PM CDT 0.5 mL Arm, Right influenza (TRIvalent) A/B [id number] PF Given vac (36 mos+) (FLUZONE) inj syringe 0.5 mL 0.5 mL, Intramuscular, ONCE - UNTIL ADMIN, 1 dose, 08/31/13 at 1700, -Administer when stable and temp <38.3 C (afebrile) for 24 hours. Reschedule for 0900 the next day if unable to administer. -Per hospital protocol, please discuss risks and benefits with patient prior to administration of the vaccine(s). -If patient s platelets are below 100 k/UL, discuss changing route of administration from IM to SQ with patient s provider -NOTE: If dose unavailable, send Lulu message to pharmacy to obtain dose. , 08/31/2013 11:45 PM CDT 8 Units Arm, Left insulin aspart (NOVOLOG) flexPEN 0-14 Given Units 0-14 Units, Subcutaneous, FIVE TIMES DAILY, First dose on 08/31/13 at 0800, Until Discontinued, *Administer according to correction factor listed below at start of meal, 2100 and 0300. For patients who are not eating meals, administer appropriate correction factor as ordered at 03, 08, 12, 17, 21 (Five times daily). *POC glucose 140-180mg/dL at 08, 12, 17 administer 2 units insulin, at 21, 03 administer 0 units. *POC glucose 181-220mg/dL at 08, 12, 17 administer 4 units insulin, at 21, 03 administer 2 units. *POC glucose 221-260mg/dL at 08, 12, 17 administer 6 units insulin, at 21, 03 administer 4 units. *POC glucose 261-300mg/dL at 08, 12, 17 administer 8 units insulin, at 21, 03 administer 6 units. *POC glucose 301-350mg/dL at 08, 12, 17 administer 10 units insulin, at 21, 03 administer 8 units. *POC glucose 351-400mg/dL at , , administer 12 units insulin, at , 03 administer 10 units. *POC glucose >400mg/dL at , , administer 14 units insulin, at , 03 administer 12 units. *For POCT glucose >350 mg/dL give correction bolus and recheck POCT glucose in 2 hours. If POCT glucose at 2 hours >300mg/dL call physician for further orders. NOTE: This is a HIGH ALERT Medication., 10 Units Arm, Left Given 08/31/2013 6:26 PM CDT 10 Units Arm, Left Given 08/31/2013 12:00 PM CDT 09/08/2013 2:24 PM [employer]ANT 4 Units Arm, Right insulin aspart (NOVOLOG) flexPEN 0-28 Given Units 0-28 Units, Subcutaneous, FIVE TIMES DAILY, First dose on Sun09/01/13 at 0300, Until Discontinued, *Administer according to correction factor listed below at start of meal, 2100 and 0300. For patients who are not eating meals, administer appropriate correction factor as ordered at 03, 08, 12, 17, 21 (Five times daily). *POC glucose 140-180mg/dL at , , administer 4 units insulin, at , 03 administer 0 units. *POC glucose 181-220mg/dL at , , administer 8 units insulin, at , 03 administer 4 units. *POC glucose 221-260mg/dL at , , administer 12 units insulin, at 21, 03 administer 8 units. *POC glucose 261-300mg/dL at , , administer 16 units insulin, at , 03 administer 12 units. *POC glucose 301-350mg/dL at 08, , 17 administer 20 units insulin, at , 03 administer 16 units. *POC glucose 351-400mg/dL at , , administer 24 units insulin, at 21, 03 administer 20 units. *POC glucose >400mg/dL at 08, 12, 17 administer 28 units insulin, at , 03 administer 24 units. *For POCT glucose >350 mg/dL give correction bolus and recheck POCT glucose in 2 hours. If POCT glucose at 2 hours >300mg/dL call physician for further orders. NOTE: This is a HIGH ALERT Medication., 8 Units Arm, Right Given 09/08/2013 8:45 AM OUT[employer]IDE [employer] SAL[employer]ANT 8 Units Arm, Left Given 09/08/2013 3:00 AM OUTSIDE [employer] SAL[employer] CONSULTANT INSULIN ASPART 100 UNIT/ML SC FLEXPEN (AcuDose pull) NOW, 1 dose, [place] 08/31/13 at 2345, Cailin Klein: cabinet override NOTE: This is a HIGH ALERT Medication., Cailin Klein: cabinet override, 09/02/2013 12:05 PM CDT 1,000 mL LACTATED RINGERS IV SOLP (AcuDose pull) Given NOW, 1 dose, [facility] 09/02/13 at 1200, Juana Coombs: cabinet override, Juana Coombs: cabinet override, 09/08/2013 8:45 AM [employer]ANT 1 patch Abdominal Tissue lidocaine (LIDODERM) 5 % topical patch Patch/Topica 1-2 Patch l Applied 1-2 patch, Topical, Administer over 12 Hours, DAILY, First dose on 08/31/13 at 0900, Until Discontinued, NURSING PLEASE NOTE: Apply patch ONCE DAILY to affected area and REMOVE after designated duration. Apply only to intact skin. Patch may be cut to fit affected area., 2 patches Abdomen:LLQ Patch/Topical Applied 09/07/2013 8:20 AM OUT[employer]ANT 1 patch Abdominal Tissue Patch/Topical Applied 09/06/2013 9:20 AM CDT 09/08/2013 8:45 AM [employer]ANT 200 mg magnesium oxide (MAG-OX) tablet 200 mg Given 200 mg, Oral, ONCE, 1 dose, 09/08/13 at 0745, Delivers 241.3mg elemental magnesium per tab, 09/05/2013 9:00 AM CDT 1 g 100 mL/hr magnesium sulfate 1 g/D5W 100 mL IVPB Given 1 g, Intravenous, 100 mL, Administer over 60 Minutes, EVERY 1 HOUR FOR 2 DOSES, 2 doses, First dose on Sun09/05/13 at 0800, Last dose on Sun09/05/13 at 0900, Each 1gm delivers 8.1 mEq Magnsium., 1 g 100 mL/hr Given 09/05/2013 8:00 AM CDT 09/07/2013 8:20 AM OUT[employer]ANT 1 g 100 mL/hr magnesium sulfate 1 g/D5W 100 mL IVPB Given 1 g, Intravenous, 100 mL, Administer over 60 Minutes, EVERY 1 HOUR FOR 2 DOSES, 2 doses, First dose on 09/07/13 at 0630, Last dose on 09/07/13 at 0700, Each 1gm delivers 8.1 mEq Magnsium., 1 g 100 mL/hr Given 09/07/2013 6:30 AM [employer]ANT 09/08/2013 12:38 PM [employer] 4 mg morphine injection syringe 4-8 mg Given 4-8 mg, Intravenous, EVERY 1 HOUR PRN, Starting 08/30/13 at 2212, Until 09/08/13 at 1852, Pain, NOTE: This is a HIGH ALERT Medication., 4 mg Given 09/05/2013 2:16 PM CDT 08/31/2013 1:00 AM CDT morphine PATTERN FINISHER 55 mg/NS 55ml infusion Given - New syr (std conc)(premade) Bag Intravenous, PATTERN FINISHER, Starting 08/31/13 at 0000, Until 09/01/13 at 0751, PATTERN FINISHER Dose: 2 ml per dose (Pt. Demand Dose) PATTERN FINISHER Delay: 6 min (Lock out Interval) PATTERN FINISHER Basal Rate: 0 ml/h (Continuous Dose) PATTERN FINISHER 1 Hour Limit: 20=(Basal Rate + (PATTERN FINISHER Dose x 60min/ PATTERN FINISHER Delay)) PATTERN FINISHER Initial Bolus: 2 ml (Loading Dose) PATTERN FINISHER Additional Bolus (Pain >5): 2 mL, Re-assess in 15 minutes, may repeat bolus ONE time if pain not adequately controlled. (MAXIMUM of 2 bolus doses only). Check pump to ensure proper function and appropriate patient utilization. If pain still not adequately controlled, contact physician. Stop PATTERN FINISHER if patient difficult to arouse, or systolic BP drops more than 20 mmHg from baseline. PATTERN FINISHER Conc=1mg/mL--Administer with PATTERN FINISHER Pump-- NOTE:This is a HIGH ALERT Medication: MEDICATION DOUBLE CHECK Policy applies Only patient may push PATTERN FINISHER button. Administer only with PATTERN FINISHER Pump -- Only Patient may push PATTERN FINISHER button NOTE: This is a HIGH ALERT Medication., 09/02/2013 7:52 PM CDT 4 mg ondansetron (ZOFRAN) injection 4 mg Given 4 mg, Intravenous, EVERY 6 HOURS PRN, Starting 08/30/13 at 2352, Until 09/08/13 at 1852, Nausea 09/02/2013 2:45 PM CDT 4 mg ondansetron (ZOFRAN) injection 4 mg Given 4 mg, Intravenous, ONCE PRN, 1 dose, Starting Sun09/02/13 at 1355, Until Sun09/02/13 at 1445, Nausea, Vomiting, If not given in last six hours., PACU (only) 09/08/2013 2:16 PM [employer]ANT 10 mg oxyCODone (ROXICODONE) tablet 5-10 mg Given 5-10 mg, Oral, EVERY 4 HOURS PRN, Starting Sun09/01/13 at 1112, Until Sun09/08/13 at 1852, Pain, NOTE: This is a HIGH ALERT Medication., 10 mg Given 09/08/2013 8:45 AM OUT[employer]ANT 10 mg Given 09/07/2013 9:46 PM OUTSIDE [employer] SAL[employer]ANT 09/08/2013 8:45 AM OUTS[employer] SAL[employer] CONSULTANT 3.375 g 100 mL/hr piperacillin/tazobactam (ZOSYN) 3.375 Given g/50 mL iso-osmotic IVPB 3.375 g, Intravenous, at 100 mL/hr, EVERY 6 HOURS, First dose on Sun08/31/13 at 0030, Until Discontinued 3.375 g 100 mL/hr Given 09/08/2013 3:00 AM OUT[employer]ANT 3.375 g 100 mL/hr Given 09/07/2013 9:00 PM OUT[employer] SAL[employer]ANT 09/05/2013 7:30 AM CDT potassium chloride SR (K-DUR) 20 mEq, Given alum/mag hydroxide/simeth (MYLANTA, MAALOX PLUS) 30 mL combination Oral, ONCE, 1 dose, Sun09/05/13 at 0730, Maalox oral liquid is currently on nationwide shortage. Maalox Plus will be used in its place., 09/08/2013 8:45 AM OUTS[employer] SAL[employer] CONSULTANT 1 tablet senna/docusate (SENOKOT-S) tablet 1 Tab Given 1 tablet, Oral, TWICE DAILY, First dose on Sun08/31/13 at 1230, Until Discontinued, Hold for loose stools, 1 tablet Given 09/07/2013 9:00 PM OUT[employer]ANT 1 tablet Given 09/07/2013 8:20 AM OUTSIDE [employer] SAL[employer] CONSULTANT 08/30/2013 10:40 PM CDT 1,000 mL sodium chloride 0.9 % infusion Given - New 1,000 mL, 1,000 mL, Intravenous, BOLUS, Bag 1 dose, 08/30/13 at 2215 08/31/2013 11:45 PM CDT 125 mL/hr sodium chloride 0.9 % infusion Given - New 1,000 mL, Intravenous, at 125 mL/hr, Bag CONTINUOUS, Starting 08/31/13 at 0000, Until Sun09/01/13 at 0751 125 mL/hr Given - New Bag 08/31/2013 9:51 AM CDT 125 mL/hr Given - New Bag 08/31/2013 1:00 AM CDT 09/04/2013 2:00 AM CDT SODIUM CHLORIDE 0.9 % IV SOLP (AcuDose Given pull) NOW, 1 dose, [place] 09/04/13 at 0200, Kristy Daniels: cabinet override, Kristy Daniels: cabinet override, 09/05/2013 12:30 PM CDT SODIUM CHLORIDE 0.9 % IV SOLP (AcuDose Given pull) NOW, 1 dose, Sun09/05/13 at 1230, Marcia Godoy: cabinet override, Marcia Godoy: cabinet override, 09/01/2013 3:00 AM CDT 1,500 mg 200 mL/hr vancomycin (VANCOCIN) 1,500 mg in Given dextrose 5% (D5W) IVPB 1,500 mg, Intravenous, 300 mL, Administer over 90 Minutes, EVERY 12 HOURS, First dose on Sun08/31/13 at 0100, Until Discontinued, Note Pharmacokinetic Monitoring: Please record infusion start time (Action=Given) and stop time (Action=Completed) of dose when blood levels are drawn., 1,500 mg 200 mL/hr Given 08/31/2013 1:00 PM CDT 1,500 mg 200 mL/hr Given 08/31/2013 1:20 AM CDT 09/04/2013 10:00 PM CDT 2 g 540 mL/hr vancomycin (VANCOCIN) 2 g in sodium Given chloride 0.9% (NS) IVPB 2 g, Intravenous, 540 mL, Administer over 60 Minutes, EVERY 12 HOURS, First dose on Sun09/02/13 at 1830, Until Discontinued, Note Pharmacokinetic Monitoring: Please record infusion start time (Action=Given) and stop time (Action=Completed) of dose when blood levels are drawn., 2 g 540 mL/hr Given 09/04/2013 10:06 AM CDT 2 g 540 mL/hr Given 09/03/2013 10:00 PM CDT 09/02/2013 6:40 AM CDT 2,000 mg 270 mL/hr vancomycin (VANCOCIN) 2,000 mg in Given dextrose 5% (D5W) IVPB 2,000 mg, Intravenous, 540 mL, Administer over 120 Minutes, EVERY 12 HOURS, First dose on Sun09/01/13 at 1730, Until Discontinued, Note Pharmacokinetic Monitoring: Please record infusion start time (Action=Given) and stop time (Action=Completed) of dose when blood levels are drawn., 2,000 mg 270 mL/hr Given 09/01/2013 5:30 PM CDT documented in this encounter
--- OUTSIDE RECORDS SUMMARY | 2019-04-24 13:49 | XMS REPORT | Encounter Summary ---
Author Author [facility] Organization [facility] Address Unknown Phone Unavailable Care Team Providers Care Cloth Napping Supervisor Name Role Phone Rajeev Ferguson MD Unavailable Gildardo Craig MD PCP Georgina Roberts RN Unavailable Unavailable Reason for Referral * Referred By Contact Referred To Contact Status Reason Specialty Diagnoses / Procedures Rajeev Ferguson MD [address] [place] [address] Closed Diagnoses Ventral hernia P rocedures CT ABD/PELV W CONTRAST Reason for Visit * Reason Comments Post-hospital Follow Up Encounter Details Care Team Description Date Type Department Rajeev Ferguson MD [address] [place], [place] [id number] Ventral hernia (Primary Dx) 08/29/2013 Office Visit [facility] - [facility] [address] [place], [place] [id number] Social History Date Tobacco Use Types Packs/Day [...] Signs Reading Time Taken Comments Vital Sign 104/80 08/29/2013 12:36 PM CDT Blood Pressure 100 08/29/2013 12:36 PM CDT Pulse 35.9 C (96.6 F) 08/29/2013 12:36 PM CDT Temperature 18 08/29/2013 12:36 PM CDT Respiratory Rate - - Oxygen Saturation - - Inhaled Oxygen Concentration 112.5 kg (248 lb) 08/29/2013 12:36 PM CDT Weight 188 cm (6' 2") 08/29/2013 12:36 PM CDT Height 31.84 08/29/2013 12:36 PM CDT Body Mass Index documented in this encounter Progress Notes * Rajeev Ferguson MD - 08/29/2013 1:30 PM CDT Mr. Bennett comes in today for his first post-op visit. He reports that he has been having quite a lot of pain and in the last couple of days he started draining fluid out of the top portion of the wound. Denies fevers/chills/nausea/vomiting. Wound on exam looks erythematous along tito and there appears to be sloughing along the sides of the wound as well. Tito out and multiple mL of clear marisa fluid out of wound. Concerned that this may be more than a seroma, possible dehiscence (without othe r symptoms). Will get CT today to evaluate. Further recs after scan. CT scan shows hernia intact with seroma. No evidence of infection at this time. Will refill pain meds, start Abx prophylactically and start slivadene to the edg es of the incision. RTC in 2 weeks documented in this encounter Miscellaneous Notes * Addendum Note - Rajeev Ferguson MD - 08/29/2013 3:41 PM CDT Addended by: RAJEEV FERGUSON on: 08/29/2013 03:41 PM Modules accepted: Orders documented in this encounter Plan of Treatment Not on filedocumented as of this encounter Results * CT ABD/PELV W CONTRAST (08/29/2013 3:20 PM CDT) Exam Status ++++++ [facility] ++++ SIGNED REPORT ++++++++++ Exam EXAM: [facility] CT ABDOMEN AND PELVIS Clinical Indication: Ventral hernia repair. Now oozing since hernia repair from August 13, 2013. Technique:Multiple contiguous axial images were obtained through the abdomen and pelvis following the uneventful administration of IV contrast material. Portal venous and equilibrium phase of post contrast imaging was obtained through the abdomen and pelvis.Post processing coronal and sagittal reconstruction images were made from the axial images. IV contrast: 100 ml Isovue 370 Bowel contrast: None Comparison: None Findings: Dr. Simpson has personally reviewed these images and formulated the interpretations and opinions expressed in this report. Lower thorax:There is no pleural effusion, pneumothorax or consolidating pneumonia. Liver and spleen:Hepatomegaly without focal lesion. Cholecystectomy clips. Unremarkable spleen. Adrenal glands and kidneys:No adrenal masses. Too small to characterize right renal cystic lesion, probably tiny renal cyst. Kidneys are otherwise unremarkable. Pancreas, aorta and retroperitoneum:Unremarkab le pancreas. No aortic dissection or aneurysm. No significant retroperitoneal lymphadenopathy. Bowel, abdominal wall and peritoneal space:Mild distal colonic diverticulosis. Unremarkable appendix. Anterior abdominal wall subcutaneous gas and stranding with small fluid collection with enhancing rim within the anterior abdominal wall musculature measuring 5.4 x 1.7 cm in size. This extends into the subcutaneous tissue where loculated fluid measures 4.6 x 2.5 cm (image 35/4). No pneumoperitoneum.Closely opposed bowel loops posterior to the ventral hernia repair without evidence for bowel obstruction Pelvis: Partially opacified bladder is unremarkable. Unremarkable prostate. No ascites. Osseous structures: Posterior spinal fixation and body fusion hardware from L3-S1. Impression CT ABD/PELV W [facility] CONTRASTIM PRESSION: 1. POSTOPERATIVE CHANGES OF RECENT ABDOMINAL WALL HERNIA REPAIR ABOVE. 2. GAS AND FLUID COLLECTION IN THE ANTERIOR ABDOMINAL MUSCULATURE AND SUBCUTANEOUS TISSUE LIKELY REPRESENTING ABSCESS. CORRELATION WITH REPORTED DRAINING FLUID ANALYSIS IS SUGGESTED. 3. NO BOWEL OBSTRUCTION OR INTRA-ABDOMINAL INFLAMMATORY MASS. Residents: [facility] [place] Electronically signed on: Aug 29 20136:[id number] by BHAVYA SIMPSON By my electronic signature, I attest that I have personally reviewed the images for this examination and formulated the interpretations and opinions expressed in this report. Specimen Impressions Performed At CT ABD/PELV W CONTRASTIMPRESSION: [facility] 1. POSTOPERATIVE CHANGES OF RECENT ABDOMINAL WALL HERNIA REPAIR ABOVE. 2. GAS AND FLUID COLLECTION IN THE ANTERIOR ABDOMINAL MUSCULATURE AND SUBCUTANEOUS TISSUE LIKELY REPRESENTING ABSCESS. CORRELATION WITH REPORTED DRAINING FLUID ANALYSIS IS SUGGESTED. 3. NO BOWEL OBSTRUCTION OR INTRA-ABDOMINAL INFLAMMATORY MASS. Residents: INDER [place]ESS[place] Electronically signed on: Aug 29 20136:[id number] by BHAVYA SIMPSON By my electronic signature, I attest that I have personally reviewed the images for this examination and formulated the interpretations and opinions expressed in this report. Narrative Performed At EXAM: [facility] CT ABDOMEN AND PELVIS Clinical Indication: Ventral hernia repair. Now oozing since hernia repair from August 13, 2013. Technique:Multiple contiguous axial images were obtained through the abdomen and pelvis following the uneventful administration of IV contrast material. Portal venous and equilibrium phase of post contrast imaging was obtained through the abdomen and pelvis.Post processing coronal and sagittal reconstruction images were made from the axial images. IV contrast: 100 ml Isovue 370 Bowel contrast: None Comparison: None Findings: Dr. Simpson has personally reviewed these images and formulated the interpretations and opinions expressed in this report. Lower thorax:There is no pleural effusion, pneumothorax or consolidating pneumonia. Liver and spleen:Hepatomegaly without focal lesion. Cholecystectomy clips. Unremarkable spleen. Adrenal glands and kidneys:No adrenal masses. Too small to characterize right renal cystic lesion, probably tiny renal cyst. Kidneys are otherwise unremarkable. Pancreas, aorta and retroperitoneum:Unremarkable pancreas. No aortic dissection or aneurysm. No significant retroperitoneal lymphadenopathy. Bowel, abdominal wall and peritoneal space:Mild distal colonic diverticulosis. Unremarkable appendix. Anterior abdominal wall subcutaneous gas and stranding with small fluid collection with enhancing rim within the anterior abdominal wall musculature measuring 5.4 x 1.7 cm in size. This extends into the subcutaneous tissue where loculated fluid measures 4.6 x 2.5 cm (image 35/4). No pneumoperitoneum.Closely opposed bowel loops posterior to the ventral hernia repair without evidence for bowel obstruction Pelvis: Partially opacified bladder is unremarkable. Unremarkable prostate. No ascites. Osseous structures: Posterior spinal fixation and body fusion hardware from L3-S1. Performing Organization Address City/State/Zipcode Phone Number [facility] documented in this encounter Visit Diagnoses Diagnosis Ventral hernia - Primary Ventral hernia, unspecified, without mention of obstruction or gangrene documented in this encounter
--- OUTSIDE RECORDS SUMMARY | 2019-04-24 13:49 | XMS REPORT | Encounter Summary ---
Author Author [facility] Organization [facility] Address Unknown Phone Unavailable Care Team Providers Care Coding Specialist Name Role Phone Gordo Ferguson MD Unavailable Gildardo Craig MD PCP Georgina Roberts RN Unavailable Unavailable Reason for Referral * Referred By Contact Referred To Contact Status Reason Specialty Diagnoses / Procedures Gordo Ferguson MD [address] [place] [address] Closed Diagnoses Ventral hernia P rocedures CT ABD/PELV W CONTRAST * Referred By Contact Referred To Contact Status Reason Specialty Diagnoses / Procedures Gordo Ferguson MD [address] [place] [address] Closed Diagnoses Ventral hernia P rocedures CT ABD/PELV W CONTRAST Reason for Visit * Auth/Cert Referred By Contact Referred To Contact Status Reason Specialty Diagnoses / Procedures [facility] [address] [place] [address] Closed Diagnoses S/P repair of ventral hernia Encounter Details Care Team Description Date Type Department Gordo Ferguson MD [address] [place] [address] [phone] 08/29/2013 [facility] [address] [facility] [address] [place] [address] Social History Date Tobacco Use [...] Date End Date Medication Sig Dispensed Refills 09/08/2013 acetaminophen (TYLENOL) Take 1,000 mg 0 500 mg tablet by mouth at bedtime daily. 11/14/2013 clonazePAM (KLONOPIN) 1 Take 1 mg by 0 mg tablet mouth at bedtime daily. 08/16/2013 11/14/2013 diazepam (VALIUM) 5 mg Take 0.5-1 30 Tab 0 tablet Tabs by mouth every 6 hours as needed. 08/29/2013 11/14/2013 HYDROmorphone (DILAUDID) Take 1 Tab by 60 Tab 0 2 mg tablet mouth every 3 hours as needed 08/29/2013 09/08/2013 levofloxacin (LEVAQUIN) Take 1.5 Tabs 15 Tab 0 500 mg tablet by mouth daily for 10 days. 08/16/2013 11/14/2013 lidocaine (LIDODERM) 5 % Apply to 30 Patch 0 topical patch affected area for 12 hours, then remove for 12 hours. 08/16/2013 08/31/2013 oxyCODone-acetaminophen Take 1-2 Tabs 60 Tab 0 (PERCOCET; ENDOCET; by mouth ROXICET) 5-325 mg tablet every 4 hours as needed for Pain Earliest Fill Date: 08/15/13 Max 12 tabs/day 08/16/2013 11/14/2013 senna/docusate Take 1 Tab by 60 Tab 0 (SENOKOT-S) 8.6/50 mg mouth twice tablet daily. 08/29/2013 09/08/2013 silver sulfADIAZINE Apply to 1 Container 0 (SILVADENE) 1 % topical incision cream edges BID documented as of this encounter Miscellaneous Notes * Admin - SCANNED DOCUMENT - 08/30/2013 11:30 AM CDT documented in this encounter Plan of Treatment Not on filedocumented as of this encounter Procedures Comments Procedure Name Priority Date/Time Associated Diagnosis CT ABD/PELV W CONTRAST Routine 08/29/2013 Ventral hernia 3:20 PM CDT documented in this encounter Results * CT ABD/PELV W CONTRAST (08/29/2013 3:20 PM CDT) Exam Status ++++++ [facility] ++++ SIGNED REPORT ++++++++++ Exam EXAM: [facility] CT ABDOMEN AND PELVIS Clinical Indication: Ventral [...] hardware from L3-S1. Impression CT ABD/PELV W [facility] CONTRASTIM PRESSION: 1. POSTOPERATIVE CHANGES OF RECENT [...] Impressions Performed At CT ABD/PELV W CONTRASTIMPRESSION: [facility] 1. POSTOPERATIVE CHANGES OF RECENT ABDOMINAL WALL [...] in this report. Narrative Performed At EXAM: [facility] CT ABDOMEN AND PELVIS Clinical Indication: Ventral [...] L3-S1. Performing Organization Address City/State/Zipcode Phone Number [facility] documented in this encounter Visit Diagnoses Diagnosis Ventral hernia Ventral hernia, unspecified, without mention of obstruction or gangrene documented in this encounter
--- OUTSIDE RECORDS SUMMARY | 2019-04-24 13:50 | XMS REPORT | Encounter Summary ---
Author Author [facility] Organization [facility] Address Unknown Phone Unavailable Care Team Providers Care Census Enumerator Name Role Phone Rajeev Ferguson MD Unavailable Gildardo Craig MD PCP Georgina Roberts RN Unavailable Unavailable Reason for Visit * Auth/Cert Referred By Contact Referred To Contact Status Reason Specialty Diagnoses / Procedures [id number] [address] [facility] [place] [address] Closed Diagnoses Ventral hernia P rocedures CA REPAIR RECURR INCIS HERNIA,REDUC Encounter Details Care Team Description Date Type Department Rajeev Ferguson MD [address] [place] [address] Ventral hernia 08/13/2013 Hospital Surg Onc/Uro/Size Roller Operator Onc - Encounter [address] [facility] 08/16/2013 [place], [place] [id number] Social History Date Tobacco Use Types Packs/Day [...] Signs Reading Time Taken Comments Vital Sign 126/94 08/16/2013 12:15 PM CDT Blood Pressure 90 08/16/2013 12:15 PM CDT Pulse 36.9 C (98.5 F) 08/16/2013 12:15 PM CDT Temperature - - Respiratory Rate 97% 08/16/2013 12:15 PM CDT Oxygen Saturation - - Inhaled Oxygen Concentration 110.2 kg (243 lb) 08/14/2013 3:01 AM CDT Weight 190.5 cm (6' 3") 08/13/2013 9:37 AM CDT Height 30.37 08/13/2013 9:37 AM CDT Body Mass Index documented in this encounter Discharge Summaries * Demetrius Richey MD - 08/16/2013 4:34 PM CDT Physician Discharge Summary Name: Jarett Barrera Date Of : 1960 Age: 53 years Admit date: 08/13/2013 Discharge date: 08/16/2013 Attending Physician: Phyllis Service: Surgery-General/Emergency Physician Summary completed by: Demetrius Richey MD Reason for hospitalization: ventral hernia Significant PMH: Past Medical History Diagnosis Date Diabetes * Allergies: Review of patient's allergies indicates no known allergies. Admission Physical Exam notable for: *Constitutional: He is oriented to person, place, and time. He appears well-deve loped and well-nourished. HENT: Head: Normocephalic and atraumatic. Eyes: EOM are normal. Pupils are equal, round, and reactive to light. Neck: Normal range of motion. Neck supple. Cardiovascular: Normal rate and regular rhythm. Pulmonary/Chest: Effort normal and breath sounds normal. Abdominal: Soft. Bowel sounds are normal. Musculoskeletal: Normal range of motion. Neurological: He is alert and oriented to person, place, and time. Skin: Skin is warm and dry. Admission Lab/Radiology studies notable for: none Brief Hospital Course: The patient was admitted and the following issues were a ddressed during this hospitalization: (with pertinent details). 1. * Pt was seen and evaluated in clinic for ventral hernia 2. Pt was scheduled for and admitted to same day surgery for ventral hernia repa ir 3. Pt was taken back to operating room and tolerated the procedure well without complications 4. Pt was taken to the PACU in stable condition 5. Pt was transferred to the floor for recovery. 6. Pt was successfully transitioned to oral pain medications and regular diet wi thout acute events. 7. Pt was sent home with instructions for follow up and medications. Condition at Discharge: Stable Discharge Diagnoses: * Active Problems: Ventral hernia Surgical Procedures: ventral hernia repair with mesh Significant Diagnostic Studies and Procedures: noted in brief hospital course Consults: None Patient Disposition: Home Patient instructions/medications: Activity as Tolerated You should resume your normal activity after follow-up appointment. Driving Restrictions No driving while taking pain medication. Lifting Restrictions Do not lift more than 10 pounds until after follow-up appointment. Return Appointment Please call [phone] to schedule follow up post-operative appointment Please make appointment for 2 weeks after discharge Please keep appointment as scheduled. Provider RAJEEV FERGUSON [[id number]] Location Surgery [facility] Other appointment instructions Other instructions: Report These Signs and Symptoms Please call for wound drainage, redness, increasing pain and swelling or separat ion. Please call for persistent nausea or vomiting, fevers, chills, or sweats. Canelo sim report to your local emergency department for any sudden or severe symptom s. Questions About Your Stay For questions or concerns regarding your hospital stay: DURING BUSINESS HOURS (8:00 AM - 4:30 PM): Call [phone] and asked to be transferred to your discharge attending physic romeo (below). AFTER BUSINESS HOURS (4:30 PM - 8:00 AM, on weekends, or holidays): Call [phone] and ask the drawing kiln operator to page the on-call doctor for the discha rge attending physician (below). Discharging attending physician: RAJEEV FERGUSON [[id number]] Regular Diet If you have questions about your diet after you go home, you can call a dietitia n at [phone]. Incision Care *Keep your incision clean and dry. *May shower 2 days following procedure. Avoid direct water contact to the incis ion. Take sponge baths, working around the incision during this time. *Do not submerge incision in tub, pool, hot tub, or love for 4 weeks. *Avoid applying deodorants, powders, creams, lotions, etc, to your incision for 4 weeks. *Usually there are no stitches to be removed. Steri-strips (strips of tape) partha l begin to fall off in 10-14 days. If they remain after 2 weeks, gently remove them when they are damp after a shower. *Your incision should gradually look better each day. If you notice unusual swe lling, redness, drainage, have increasing pain at the site, or have a fever grea ter than 100 degrees, notify your physician immediately. Current Discharge Medication List START taking these medications Details lidocaine (LIDODERM) 5 % topical patch Apply to affected area for 12 hours, then remove for 12 hours. Qty: 30 Patch, Refills: 0 PRESCRIPTION TYPE: Normal This prescription was faxed to the pharmacy Pharmacy: [facility] #[id number] [address] (Ph #: ) oxyCODone-acetaminophen (PERCOCET; ENDOCET; ROXICET) 5-325 mg tablet Take 1-2 Ta bs by mouth every 4 hours as needed for Pain Earliest Fill Date: 08/15/13 Max 12 tabs/day Qty: 60 Tab, Refills: 0 PRESCRIPTION TYPE: Print senna/docusate (SENOKOT-S) 8.6/50 mg tablet Take 1 Tab by mouth twice daily. Qty: 60 Tab, Refills: 0 PRESCRIPTION TYPE: Normal This prescription was faxed to the pharmacy Pharmacy: [facility] #[id number] [place] [address] (Ph #: ) diazepam (VALIUM) 5 mg tablet Take 0.5-1 Tabs by mouth every 6 hours as needed. Qty: 30 Tab, Refills: 0 PRESCRIPTION TYPE: Print polyethylene glycol 3350 (GLYCOLAX; MIRALAX) 17 gram/dose powder Take 17 g by mo ut daily. Qty: 3 Bottle, Refills: 0 PRESCRIPTION TYPE: Normal This prescription was faxed to the pharmacy Pharmacy: [facility] #[id number] [place] [address] (Ph #: ) CONTINUE these medications which have NOT CHANGED Details acetaminophen (TYLENOL) 500 mg tablet Take 1,000 mg by mouth every 6 hours as ne eded. PRESCRIPTION TYPE: Historical Med clonazePAM (KLONOPIN) 1 mg tablet Take 1 mg by mouth twice daily. PRESCRIPTION TYPE: Historical Med Pending items needing follow up: none Signed: Demetrius Richey MD 08/16/2013 cc: Primary Care Physician: Gildardo Craig Verified Referring physicians: Additional provider(s): documented in this encounter Discharge Instructions * Anesthesia Post-Op* Isabell Prasad SRNA - 08/14/2013 8:31 AM CDT Anesthesia Post-Op Note Admission Date: 08/13/2013 LOS: 1 day Anesthesia Type: General Difficult Intubation: No Post-op pain control: Adequate analgesia Level of consciousness: awake, alert and oriented Nausea/vomiting: No nausea and No vomiting Recall: No Complications: None TIMUR Johnston Pager [phone] documented in this encounter Medications at Time [...] by mouth every 6 hours as needed. 08/16/2013 11/14/2013 lidocaine (LIDODERM) 5 % Apply to 30 Patch 0 topical patch affected area for 12 hours, then remove for 12 hours. 08/16/2013 08/31/2013 oxyCODone-acetaminophen Take 1-2 Tabs 60 Tab 0 (PERCOCET; ENDOCET; by mouth ROXICET) 5-325 mg tablet every 4 hours as needed for Pain Earliest Fill Date: 08/15/13 Max 12 tabs/day 08/16/2013 08/29/2013 polyethylene glycol 3350 Take 17 g by 3 Bottle 0 (GLYCOLAX; MIRALAX) 17 mouth daily. gram/dose powder 08/16/2013 11/14/2013 senna/docusate Take 1 Tab by 60 Tab 0 (SENOKOT-S) 8.6/50 mg mouth twice tablet daily. documented as of this encounter Progress Notes * SCANNED DOCUMENT - 08/31/2013 10:37 AM CDT * SCANNED DOCUMENT - 08/20/2013 8:09 AM CDT * Ariane Wilcox - 08/19/2013 7:55 AM CDT PHYSICAL THERAPY DISCHARGE NOTE GOALS: Goal Formulation: With Patient Time For Goal Achievement: 3 days;To;5 days Pt Will Go Supine To/From Sit: w/ Stand By Assist;Partly Met Pt Will Transfer Sit to Stand: w/ Stand By Assist;Partly Met Pt Will Ambulate: Greater than 200 Feet;w/ No Device;w/ Stand By Assist;Partly M et Pt Will Go Up / Down Stairs: 1-2 Flights;w/ Stand By Assist;Partly Met RECOMMENDATIONS: Discharge Recommendations: Home with Assistance Equipment Recommendations: None Comments: Pt discharged home with assistance from family. Therapist: Ariane Wilcox, PT Date: 08/19/2013 * Autumn Carrillo RN - 08/16/2013 6:56 PM CDT Plan of care reviewed with pt. Pt is consuming reg diet w/no n/v. Pt has ambulat ed all day. After suppository and miralax pt has passed flatus and had a bm. Pt reports pain tolerable and well controlled with pain medication. Dc instructions and restrictions reviewed. Pt verbalized understanding. Medications reviewed pr ior to administration and w/dc. IV removed. Pt states is at lobby and denies the need for transport. Pt amb ulated to lobby. * Autumn Carrillo RN - 08/16/2013 3:24 PM CDT Pt has reported he has had flatus along with bm. RN notified Rossi and also infor med pt wants to go home. Will cont to monitor. * Autumn Carrillo RN - 08/16/2013 2:15 PM CDT Pt cont to c/o pain and discomfort. Pt still has not been able to pass flatus. Alaina Richey. Rossi instructed RN to order miralax for pt. Will cont to monitor. * Autumn Carrillo RN - 08/16/2013 11:00 AM CDT Pt is ambulating around nursing unit. Pt states he still has not had a bm. RN of fered the suppository on hand. Pt stated he did not want it at this time, and he wanted to cont to ambulating. Will cont to monitor. * Ellen Perez RT - 08/15/2013 9:33 PM CDT RESPIRATORY THERAPY ADULT PROTOCOL EVALUATION RESPIRATORY PROTOCOL PLAN Medications Note: If indicated by protocol, medication orders will be placed by therapist. Procedures Oxygen/Humidity: Discontinued Monitoring: Discontinued PATIENT EVALUATION RESULTS [...] Total Points: 3 Points * Priority Index: Criteria not met PRIORITY INDEX GUIDELINES* Priority Points 1 0-9 points 2 9-18 points 3 > 18 points + Pulm Dx or Home Rx *Higher points indicate higher acuity. Therapist: Ellen Perez RT Date: 08/15/2013 [place] AC=Airway clearance AM=Aerosolized medication BA=[place] aerosol DB&C=Deep breathe & cough FEV1=Forced expiratory volume in first second) IC=Inspiratory capacity LE=Lung expansion MDI=Metered dose inhaler Neb=Nebulizer O2=Oxygen Oxim=Oximetry PEFR=Peak expiratory flow rate GARAGE DOOR SERVICE TECHNICIAN=Rapid Response Team * Mayelin Cruz, GHAZALA - 08/15/2013 6:00 PM CDT 17:35 Patient transferred to unit 53 room [facility] via ambulation. Patient alert and oriented X4. Tolerated ambulation to unit. Midline abdominal incision rem ains D/I. Patient currently rating abdominal pain as an 8/10 and denies need fo r further pain medications. Will continue to monitor patient needs. * King Guzman RN - 08/15/2013 5:39 PM CDT Walked pt up to unit 53. Tolerated ok. The room was cold and pt seemed not to thrill to have a roommate. Relayed message to charge nurse. * King Guzman RN - 08/15/2013 5:22 PM CDT Report given to GHAZALA Valdovinos on unit 53. Pt will go to unit 5307.00 * Demetrius Richey MD - 08/15/2013 4:41 PM CDT General Surgery Progress Note 08/15/2013 Patient: Jarett Barrera Admission date 08/13/2013, LOS: 2 days ASSESSMENT: Jarett Barrera is a 53 y.o. Male with Recurrent Ventral hernia s/p repair PLAN: Will continue to titrate PO and IV pain medications as needed. Will continue toradol for additional pain medications and lidoderm for additiona l comfort. Will continue to monitor for bowel function and start bowel regimen. Will continue to replace lytes PRN and check labs daily. Will work toward AL home Continue floor care for now. Patient seen and discussed with Dr. Ferguson, who directed the plan of care SUBJECTIVE: No acute events overnight, pain poorly controlled, +flatus, -BM, no N/V. No roly tional complaints. OBJECTIVE: Vital Signs: Last Filed Vital Signs: 24 Hour Ran ge BP: 112/72 mmHg (08/15 1630) Temp: 37 C (98.6 F) (08/15 1630) Pulse: 82 (08/15 1630) Respirations: 18 PER MINUTE (08/15 1630) SpO2: 92 % (08/15 1630) O2 Delivery: None (Room Air) (08/15 830) BP: (109-120)/(65-82) Temp: [37 C (98.6 F)-37.4 C (99.4 F)] Pulse: [82-104] Respirations: [18 PER MINUTE] SpO2: [92 %-93 %] O2 Delivery: [-] Intensity Pain Scale 0-10 (Pain 1): 4 (08/15/131629) A&O, NAD CTAB, no R/R/W, unlabored RRR, no M/R/G Abd Soft/approp tender to palpation/+BSx4, ND No C/C/E Recent Labs Basename 08/15/13 0545 08/14/1360408/13/131927 HGB 13.4* 13.5 -- HCT 39.1* 39.5* -- WBC 6.0 6.1 -- PLTCT 103* 107* -- NA 136* 135* -- K 3.6 3.7 -- CL 102 104 -- CO2 27 27 -- BUN 11 21 -- CR 0.65 0.82 -- GLU 239* 211* -- CA 7.9* 7.7* -- MG 1.7 1.8 -- PO4 -- -- 3.5 ALBUMIN -- -- -- TOTPROT -- -- -- TOTBILI -- -- -- AST -- -- -- ALT -- -- -- ALKPHOS -- -- -- SUZY -- -- -- LIPASE -- -- -- PREALB -- -- -- INR -- -- -- PTT -- -- -- Glucose: 239 (08/15/13 0545) Intake/Output Summary (Last 24 hours) at 08/15/13 1641 Last data filed at 08/15/13 1255 Gross per 24 hour Intake 1920 ml Output 2125 ml Net -205 ml Stool Occurrence: 1 Demetrius Richey MD Pager: [phone] TECHNICIAN * King Guzman RN - 08/15/2013 1:[address] Richey for advancing diet. Reg diet ordered. * Mary Lou Coombs OT - 08/15/2013 11:50 AM CDT OCCUPATIONAL THERAPY ASSESSMENT/DISCHARGE NOTE Patient Name: Jarett Barrera Room/Bed: [address] [place] [address] Admitting Diagnosis: Ventral hernia Past Medical History Diagnosis Date Diabetes Subjective Pertinent Dx per Physician: ventral hernia Patient Stated Goals: Get back to doing anything. Precautions: Standard Pain / Complaints: Patient demonstrates nonverbal signs of pain;Patient agrees t o participate in therapy Pain Location: Abdomen Pain Level Current: 6 Severe pain Comments: Pt seated in chair at start of therapy session, stating he has been ge tting himself to the bathroom without assistance. Objective Psychosocial Status: Participates in Therapy with Encouragement Persons Present: Son;Father Home Living Type of Home: House Home Layout: Multi-level;Able to Live on Main Level w/Bedrm/Bathrm Access;Stairs to Enter w/ Rails Bathroom Shower / Tub: Tub/Shower Unit;Walk-in Shower Bathroom Toilet: Standard Comment: Pt states he has never had a need for any equipment. Pt education for b enefits of adding shower chair and grab bars in current bathroom to maximize saf ety upon d/c to home. Pt verbalizes understanding. 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 Pt states he was driv ing, managing finances/meds and did most of the yardwork prior to hospitalatio n and that his spouse completes the majority of cooking/cleaning/laundry tasks. Vision Current Vision: Wears Glasses Only for Reading ADL's Where Assessed: Standing at Sink;Chair Grooming Assist: Modified Independent Grooming Deficits: No Assist Needed;Wash/Dry Hands LE Dressing Assist: Modified Independent LE Dressing Deficits: No Assist Needed;Don/Doff R Sock;Don/Doff L Sock Functional Transfer Assist: Independent Functional Transfer Deficits: No Assist Needed Comment: Pt demonstrating no LOB during transfer to sink and does not require an y assistive device. Activity Tolerance Endurance: 2/5 Tolerates 10-20 Min Exercise w/Multiple Rests Sitting Balance: 4+/5 Moves/Returns Trunkal Midpoint 1-2 Inches in Multiple Plan es Cognition Overall Cognitive Status: WFL to Adequately Complete Self Care Tasks Safely Social Interaction: WFL Adequate to Solve Routine Tasks Orientation: A&O x4 UE AROM Overall BUE AROM WNL: Yes Coordination: Serial Opposition WNL for Rate, Rhythm, Placement Grasp: Bilateral Grasp Functional for Activity Sensory Overall Sensory: Pt Perceives Pressure in Both UEs in Gross Exam;Bilateral Intac t UE Strength / Tone Overall Strength / Tone: WNL BUE Strength 5/5 Education Persons Educated: Patient Barriers To Learning: None Noted Teaching Methods: Verbal Instruction;Demonstration Patient Response: Verbalized and Demo Understanding Topics: Role of OT, Goals for Therapy;Home safety Goal Formulation: With Patient Assessment Prognosis: Good No Skilled OT: Independent with ADLs;No Acute OT Goals Identified DC Recommendations Discharge Recommendations: Home with family assist;Available help at home Equipment Recommendations: Shower Chair;Grab Bars Additional Information: Pt education for purchase of shower chair, grab bars for maximal safety upon d/c to home. Therapist: Mary Lou Coombs OT Date: 08/15/2013 * Daniel Bryan - 08/15/2013 9:45 AM CDT PHYSICAL THERAPY MOBILITY NOTE Patient was mobilized today with the assistance of the P.T. mobility aide as par t of the ongoing physical therapy plan of care. Aide: Daniel Bryan Date: 08/15/2013 * King Guzman RN - 08/15/2013 7:[address] Richey was up here to see pt. Notified MD that pt hasn't had BM for 3 days. No order received. * Demetrius Richey MD - 08/14/2013 2:33 PM CDT General Surgery Progress Note 08/14/2013 Patient: Jarett Barrera Admission date 08/13/2013, LOS: 1 day ASSESSMENT: Jarett Barrera is a 53 y.o. Male with Recurrent Ventral hernia s/p repair PLAN: Will continue to titrate PO and IV pain medications as needed. Will start toradol for additional pain medications and lidoderm for additional c omfort. Will continue to monitor for bowel function and start bowel regimen. Will continue to replace lytes PRN and check labs daily. Will work toward DC home Continue floor care for now. Patient seen and discussed with Dr. Ferguson, who directed the plan of care SUBJECTIVE: No acute events overnight, pain poorly controlled, +flatus, -BM, no N/V. No roly tional complaints. OBJECTIVE: Vital Signs: Last Filed Vital Signs: 24 Hour Ran BP: 119/77 mmHg (08/14 811) Temp: 37.2 C (99 F) (08/14 811) Pulse: 88 (08/14 942) Respirations: 18 PER MINUTE (08/14 942) SpO2: 96 % (08/14 942) O2 Delivery: None (Room Air) (08/14 811) Weight: 110.224 kg (243 lb) (08/14 301) BP: (100-142)/(55-85) Temp: [36.5 C (97.7 F)-37.2 C (99 F)] Pulse: [73-92] Respirations: [14 PER MINUTE-18 PER MINUTE] SpO2: [92 %-99 %] O2 Delivery: [-] Intensity Pain Scale 0-10 (Pain 1): (not recorded) A&O, NAD CTAB, no R/R/W, unlabored RRR, no M/R/G Abd Soft/approp tender to palpation/+BSx4, ND No C/C/E Recent Labs Basename 08/14/1360408/13/131927 HGB 13.5 -- HCT 39.5* -- WBC 6.1 -- PLTCT 107* -- NA 135* -- K 3.7 -- CL 104 -- CO2 27 -- BUN 21 -- CR 0.82 -- GLU 211* -- CA 7.7* -- MG 1.8 -- PO4 -- 3.5 ALBUMIN -- -- TOTPROT -- -- TOTBILI -- -- AST -- -- ALT -- -- ALKPHOS -- -- SUZY -- -- LIPASE -- -- PREALB -- -- INR -- -- PTT -- -- Glucose: 211 (08/14/13 0605) Intake/Output Summary (Last 24 hours) at 08/14/13 1434 Last data filed at 08/14/13 1400 Gross per 24 hour Intake 1497 ml Output 1075 ml Net 422 ml Demetrius Richey MD Pager: [phone] TECHNICIAN * Ariane Wilcox - 08/14/2013 1:34 PM CDT PHYSICAL THERAPY ASSESSMENT SUBJECTIVE: Subjective Mental / Cognitive Status: Alert;Oriented;To Person;To Place;To Situation;To Kye e;Cooperative;Follows Commands Pain: Patient complains of pain Pain Location: Post-surgical;Abdomen Pain Interventions: Patient agrees to participate in therapy;Treatment altered t o patient's pain tolerance;Nursing staff notified of patient's pain level;Nurse provides pain meds Prior Home Function: Indep Mobility in Community without Device (Pt reports teodoro fox. ) Patient Owned Equipment: None Home Situation: Lives with Family Type of Home: House Entry Stairs: 3-5 Stairs;Rail on 1 Side In-Home Stairs: 1-2 Flights of Stairs;Rail on 1 Side (into basement.) ROM: ROM UE ROM: Bilateral;WFL LE ROM: Bilateral;WFL STRENGTH: Strength Overall Strength: WFL BED MOBILITY/TRANSFERS: Bed Mobility/Transfers Bed Mobility: Supine to Sit: (Pt in chair when entered. ) Bed Mobility: Sit to Supine: Minimal Assist Transfer Type: Sit to/from Stand Transfer: Assistance Level: To/From;Bed;Bed Side Chair;Minimal Assist (Contact g uard assistance.) Transfer: Assistive Device: None End Of Activity Status: In Bed;Nursing Notified;Instructed Patient to Request As sist with Mobility;Instructed Patient to Use Call Light BALANCE: Balance Sitting Balance: Static Sitting Balance;2 UE Support;Independent Standing Balance: Static Standing Balance;No UE support;Standby Assist GAIT: Gait Gait Distance: 500 feet (Required one seated rest break for "dizzienss/feeling h ot".) Gait: Assistance Level: Minimal Assist (Contact guard assistance. ) Gait: Assistive Device: None Gait: Descriptors: Swing-Through Gait;Pace: Slow;No balance loss Stairs: Number Climbed: 10 Stairs: Descriptors: Ascend;Descend;Non-Reciprocal Stairs: Assistance Level: Ascend;Descend;Minimal Assist (Contact guard assistanc e. ) Stairs: Assistive Device: One Rail Activity Limited By: Complaint of Dizziness;Complaint of Pain EDUCATION: Education Persons Educated: Patient Patient Barriers To Learning: None Noted Interventions: Repetition of Instructions Teaching Methods: Verbal Instruction Patient Response: Verbalized Understanding Topics: Plan/Goals of PT Interventions;Use of Assistive Device/Orthosis;Mobility Progression;Safety Awareness;Up with Assist Only;Importance of Increasing Activ ity;Ambulate With Nursing;Ambulate with Family;Recommend Continued Therapy ASSESSMENT/PROGRESS: Assessment/Progress Impaired Mobility Due To: Pain Assessment/Progress: Should Improve w/ Continued PT GOALS: Goals Goal Formulation: With Patient Time For Goal Achievement: 3 days;To;5 days Pt Will Go Supine To/From Sit: w/ Stand By Assist Pt Will Transfer Sit to Stand: w/ Stand By Assist Pt Will Ambulate: Greater than 200 Feet;w/ No Device;w/ Stand By Assist Pt Will Go Up / Down Stairs: 1-2 Flights;w/ Stand By Assist PLAN: Plan Treatment Interventions: Mobility Training Plan Frequency: 5 Days per Week (Likely 1-2 more visists) Comments: Recommend continued mobility with nursing staff when patients pain in controlled. RECOMMENDATIONS: DC Recommendations Discharge Recommendations: Home with Assistance Equipment Recommendations: None Therapist: Ariane Wilcox PT Date: 08/14/2013 * Ashley Connelly RN - 08/14/2013 12:[address] Braswell pt has had no urine output since coming form OR. Attempted to Bl adderScan pt but dressing from incision was blocking ability to scan properly. Sandy Braswell ordered to straight cath X1. Pt refused to have me straight cath and was a ble to urinate 220ml into urinal. Will continue to monitor. * Niko Gleason, RT - 08/13/2013 5:52 PM CDT RESPIRATORY THERAPY ADULT PROTOCOL EVALUATION [...] * Chest X-Ray: Clear or not available (N/A) * PFT/Oxygenation: FEV1 >80%, PEFR >80%, or IC >1.5 L; PaO2 >80 or SpO2 >95% RA; or chronic CO2 retention (CO2) (2500 IS, 97% 1L) Patient Assessment * Respiratory Pattern: Regular pattern [...] Rx *Higher points indicate higher acuity. Therapist: Niko Gleason RT Date: 08/13/2013 [place] AC=Airway clearance AM=Aerosolized medication BA=[place] aerosol DB&C=Deep breathe & cough FEV1=Forced expiratory volume in first second) IC=Inspiratory capacity LE=Lung expansion MDI=Metered dose inhaler Neb=Nebulizer O2=Oxygen Oxim=Oximetry PEFR=Peak expiratory flow rate GARAGE DOOR SERVICE TECHNICIAN=Rapid Response Team * Denise Triplett RN - 08/13/2013 4:31 PM CDT Patient alert and oriented x 4. Patient ID band verified with patient. Patient oriented to room and call light, will call with concerns or questions. Profile completed, standard fall risk, care plan/education updated, and call lig ht in reach. * Isabell Germain RN - 08/13/2013 3:38 PM CDT Report received from [place] in [place]. documented in this encounter H&P Notes * Rajeev Ferguson MD - 08/13/2013 10:48 AM CDT History and Physical Update Note Name: Jarett Barrera Allergies: Review of patient's allergies indicates no known allergies. 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 * SCANNED DOCUMENT - 08/31/2013 10:38 AM CDT Associated Order(s): PROCEDURES-SCAN * SCANNED DOCUMENT - 08/31/2013 10:37 AM CDT * SCANNED DOCUMENT - 08/20/2013 8:09 AM CDT Associated Order(s): PROCEDURES-SCAN * SCANNED DOCUMENT - 08/20/2013 8:09 AM CDT * SCANNED DOCUMENT - 08/20/2013 8:09 AM CDT * SCANNED DOCUMENT - 08/20/2013 8:09 AM CDT * SCANNED DOCUMENT - 08/14/2013 4:00 PM CDT Associated Order(s): SURGICAL PATHOLOGY documented in this encounter Miscellaneous Notes * Admin - SCANNED DOCUMENT - 08/31/2013 10:38 AM CDT * Patient Education - SCANNED DOCUMENT - 08/31/2013 10:37 AM CDT * Patient Education - SCANNED DOCUMENT - 08/20/2013 8:09 AM CDT * Discharge Instructions - Autumn Carrillo RN - 08/16/2013 4:38 PM CDT Discharge Documentation: Activity as Tolerated You should resume your normal activity after follow-up appointment. Driving Restrictions No driving while taking pain medication. Lifting Restrictions Do not lift more than 10 pounds until after follow-up appointment. Return Appointment Please call [phone] to schedule follow up post-operative appointment Please make appointment for 2 weeks after discharge Please keep appointment as scheduled. Provider RAJEEV FERGUSON [[id number]] Location [facility] Other appointment instructions Other instructions: Report These Signs and Symptoms Please call for wound drainage, redness, increasing pain and swelling or separat ion. Please call for persistent nausea or vomiting, fevers, chills, or sweats. Canelo sim report to your local emergency department for any sudden or severe symptom s. Questions About Your Stay For questions or concerns regarding your hospital stay: DURING BUSINESS HOURS (8:00 AM - 4:30 PM): Call [phone] and asked to be transferred to your discharge attending physic romeo (below). AFTER BUSINESS HOURS (4:30 PM - 8:00 AM, on weekends, or holidays): Call [phone] and ask the drawing kiln operator to page the on-call doctor for the discha rge attending physician (below). Discharging attending physician: RAJEEV FERGUSON [[id number]] Regular Diet If you have questions about your diet after you go home, you can call a dietitia n at [phone]. Incision Care *Keep your incision clean and dry. *May shower 2 days following procedure. Avoid direct water contact to the incis ion. Take sponge baths, working around the incision during this time. *Do not submerge incision in tub, pool, hot tub, or love for 4 weeks. *Avoid applying deodorants, powders, creams, lotions, etc, to your incision for 4 weeks. *Usually there are no stitches to be removed. Steri-strips (strips of tape) partha l begin to fall off in 10-14 days. If they remain after 2 weeks, gently remove them when they are damp after a shower. *Your incision should gradually look better each day. If you notice unusual swe lling, redness, drainage, have increasing pain at the site, or have a fever grea ter than 100 degrees, notify your physician immediately. Current Discharge Medication List START taking these medications Details lidocaine (LIDODERM) 5 % topical patch Apply to affected area for 12 hours, then remove for 12 hours. Qty: 30 Patch, Refills: 0 PRESCRIPTION TYPE: Normal This prescription was faxed to the pharmacy Pharmacy: [facility] #[id number] - [address] ( #: [phone]) oxyCODone-acetaminophen (PERCOCET; ENDOCET; ROXICET) 5-325 mg tablet Take 1-2 Ta bs by mouth every 4 hours as needed for Pain Earliest Fill Date: 08/15/13 Max 12 tabs/day Qty: 60 Tab, Refills: 0 PRESCRIPTION TYPE: Print senna/docusate (SENOKOT-S) 8.6/50 mg tablet Take 1 Tab by mouth twice daily. Qty: 60 Tab, Refills: 0 PRESCRIPTION TYPE: Normal This prescription was faxed to the pharmacy Pharmacy: [facility] #[id number] [address] (Ph #: ) diazepam (VALIUM) 5 mg tablet Take 0.5-1 Tabs by mouth every 6 hours as needed. Qty: 30 Tab, Refills: 0 PRESCRIPTION TYPE: Print polyethylene glycol 3350 (GLYCOLAX; MIRALAX) 17 gram/dose powder Take 17 g by mo uth daily. Qty: 3 Bottle, Refills: 0 PRESCRIPTION TYPE: Normal This prescription was faxed to the pharmacy Pharmacy: [facility] #[id number] [address] (Ph #: ) CONTINUE these medications which have NOT CHANGED Details acetaminophen (TYLENOL) 500 mg tablet Take 1,000 mg by mouth every 6 hours as ne eded. PRESCRIPTION TYPE: Historical Med clonazePAM (KLONOPIN) 1 mg tablet Take 1 mg by mouth twice daily. PRESCRIPTION TYPE: Historical Med Immunization History: There is no immunization history on file for this patient. Personal Belongings: Personal Items / Valuables: Electronics Electronic Devices: Cell Phone Where Are Valuables Stored?: room 4517 Case Management Agency Information: Other Instructions: * Care Plan - Mary Ellen Grande - 08/16/2013 2:05 AM CDT Problem: Mobility/Activity Intolerance Goal: Maximize functional ADLs and mobility outcomes Outcome: Goal Achieved Date Met: 08/16/13 Patient ambulatory independently. * Care Plan - Mayelin Cruz RN - 08/15/2013 5:57 PM CDT Problem: Skin Integrity Goal: Healing of skin (Wound & Incision) Outcome: Goal Ongoing Midline incision remains D/I. [place] intact. Well approximated. No drainage. * Med Student Progress Note - Sarah Mayers, MS - 08/15/2013 5:46 PM CDT General Progress Note Name: Jarett Barrera Today's Date: 08/15/2013 Admission Date: 08/13/2013 LOS: 2 days Assessment/Plan: Active Problems: Ventral hernia Plan: 1. Continue percocet, lidoderm and toradol for pain 2. Ambulate patient 3. Continue floor care 4. Possible D/C home over the weekend 5. Advance diet as tolerated 6. Consider promethazine or benedryl for pruritis possibly due to opioid side ef fect Subjective Jarett Barrera is a 53 y.o. male. Patient is doing well with no overnight event s. He states his pain is better controlled than yesterday now that he has been u sing Toradol and Lidoderm patches. Tolerating a clear liquid diet with no nausea or vomiting. Denies F/BM. Ambulating and using IS. Complains of pruritis on leg s and neck. Concerned about discharge since he has history of recurrent hernia a nd he live hours away. Medications Scheduled Meds: senna/docusate (SENOKOT-S) tablet 1 Tab 1 Tab Oral BID lidocaine (LIDODERM) 5 % topical patch 1 Patch 1 Patch Topical QDAY enoxaparin (LOVENOX) syringe 40 mg 40 mg Subcutaneous QDAY(21) Continuous Infusions: PRN and Respiratory Meds:diazepam Q6H PRN, oxyCODone-acetaminophen Q4H PRN, clon azePAM QHS PRN, ondansetron (ZOFRAN) IV Q6H PRN, fentaNYL citrate PF Q1H PRN, na loxone PRN, phenol/menthol PRN Objective Vital Signs: Last Filed Vital Signs: 24 Samantha r Range BP: 112/72 mmHg (08/15 1630) Temp: 37 C (98.6 F) (08/15 163) Pulse: 82 (08/15 1630) Respirations: 18 PER MINUTE (08/15 1630) SpO2: 92 % (08/15 1630) O2 Delivery: None (Room Air) (08/15 0830) BP: (109-120)/(65-82) Temp: [37 C (98.6 F)-37.4 C (99.4 F)] Pulse: [82-104] Respirations: [18 PER MINUTE] SpO2: [92 %-93 %] O2 Delivery: [-] Intensity Pain Scale 0-10 (Pain 1): 4 (08/15/13 1700) Filed Vitals: 08/13/13 0937 08/14/13 0301 Weight: 110.678 kg (244 lb) 110.224 kg (243 lb) Intake/Output Summary: (Last 24 hours) Intake/Output Summary (Last 24 hours) at 08/15/13 1746 Last data filed at 08/15/13 1255 Gross per 24 hour Intake 1920 ml Output 2125 ml Net -205 ml Stool Occurrence: 1 Physical Exam General: Alert, cooperative, no distress, appears stated age Lungs: Clear to auscultation bilaterally Heart: Regular rate and rhythm, S1, S2 normal, no murmur, click rub or gallop Abdomen: Soft, non-tender, moderately distended. Bowel sounds hypoactive. No masses. No organomegaly. Dressings with dried sanguinous fluid and intact. Extremities: Extremities normal, atraumatic, no cyanosis or edema Lab Review 24-hour labs: Results for orders placed during the hospital encounter of 08/13/13 (from the [facility] 24 hour(s)) CBC AND DIFF Collection Time 08/15/13 5:45 AM Component Value Range White Blood Cells 6.0 4.5 - 11.0 K/UL RBC 4.37 (*) 4.4 - 5.5 M/UL Hemoglobin 13.4 (*) 13.5 - 16.5 GM/DL Hematocrit 39.1 (*) 40 - 50 % MCV 89.5 80 - 100 FL MCH 30.6 26 - 34 PG MCHC 34.2 32.0 - 36.0 G/DL RDW 12.9 11 - 15 % Platelet Count 103 (*) 150 - 400 K/UL MPV 9.1 7 - 11 FL Neutrophils 74 41 - 77 % Lymphocytes 18 (*) 24 - 44 % Monocytes 7 4 - 12 % Eosinophils 1 0 - 5 % Basophils 0 0 - 2 % Absolute Neutrophil Count 4.48 1.8 - 7.0 K/UL Absolute Lymph Count 1.08 1.0 - 4.8 K/UL Absolute Monocyte Count 0.40 0 - 0.80 K/UL Absolute Eosinophil Count 0.06 0 - 0.45 K/UL Absolute Basophil Count 0.02 0 - 0.20 K/UL BASIC METABOLIC PANEL Collection Time 08/15/13 5:45 AM Component Value Range Sodium 136 (*) 137 - 147 MMOL/L Potassium 3.6 3.5 - 5.1 MMOL/L Chloride 102 98 - 110 MMOL/L CO2 27 21 - 30 MMOL/L Anion Gap 7 (*) 8 - 12 Glucose 239 (*) 70 - 100 MG/DL Blood Urea Nitrogen 11 7 - 25 MG/DL Creatinine 0.65 0.4 - 1.24 MG/DL Calcium 7.9 (*) 8.6 - 10.3 MG/DL eGFR Non >60 >60 ML/MIN/1.73 SQM eGFR >60 >60 ML/MIN/1.73 SQM MAGNESIUM Collection Time 08/15/13 5:45 AM Component Value Range Magnesium 1.7 1.6 - 2.6 MG/DL Point of Care Testing (Last 24 hours) Glucose: 239 (08/15/13 0545) Radiology and other Diagnostics Review: No pertinent radiology. Sarah Mayers MS Pager * Operative Report (DICTATED ONLY) - Rajeev Ferguson MD - 08/15/2013 8:10 AM CDT DATE OF OPERATION: 08/13/2013 ROOM #: [id number] SURGEON: Rjaeev Ferguson MD CO-SURGEON(S): PREOPERATIVE DIAGNOSIS: Recurrent ventral hernia. POSTOPERATIVE DIAGNOSIS: Same. OPERATIVE PROCEDURE: 1. Open repair of recurrent ventral hernia with mesh. 2. Excision of old mesh. ANESTHESIA: FINDINGS: INDICATIONS FOR OPERATIVE PROCEDURE: The patient is a 53-year-old gentleman, wh o presented to my clinic complaining of upper abdominal pain in and around the a osito of a recurrent ventral hernia. Furthermore, he reported that he was having intermittent episodes of bloating and gaseous distention and pain that he attrib uted directly to the recurrence of his hernia because his symptoms seemed to sta rt after he first noticed it. After discussion of risks, benefits, and alternat doc, he elected to proceed with surgical intervention. DESCRIPTION OF OPERATIVE PROCEDURE: After obtaining informed consent, the patie nt was taken to the operating room and placed in comfortable supine position on the operating table. After adequate general endotracheal tube anesthesia was ad ministered, the patient received an orogastric tube and Romero catheter. The pat iemimi's abdomen was then prepped and draped in usual sterile fashion using DuraPr ep, sterile towels, and drapes. An incision was made through his previous midli ne incision, carried down carefully through the subcutaneous tissues. We identi fied his previously placed hernia mesh. The mesh appeared intact everywhere, ex cept on the apex, which is where the recurrence had occurred and it had ripped a way from his [place] tissue. At this point, the old mesh was completely excised and passed off the table. Minimal amount of adhesions, one in particular adhesi on to the mesh where the small bowel was taken down carefully with a combination of electrocautery and sharp dissection. Evaluation of the bowel revealed that it was fully intact and completely viable. The bowel was then reduced into the peritoneal cavity. The area was measured and a new 4.2 x 6.2 inch oval Composix mesh was selected and brought into the field. It was sutured into position in an underlay fashion using interrupted number 1 Prolene sutures. When this was c omplete, the area was copiously irrigated and aspirated free. The midline fasci a was then reapproximated over the mesh using running number 1 looped PDS. The subcutaneous tissues were carefully irrigated and aspirated free, and brought ba ck into approximation and the skin was closed using surgical tito. The wound was dressed with 4 x 4's and Tegaderm dressings. At the completion of the case, the patient tolerated the procedure well. There were no complications. All counts were correct times 2. The patient was succes sfully awakened and extubated in the operating room and [facility] in satisfactory condition. MD ANA [facility] / ED /[id number] cc: - Rajeev Ferguson MD * Med Student Progress Note - Sarah Mayers, MS - 08/14/2013 7:00 PM CDT General Progress Note Name: Jarett Barrera Today's Date: 08/14/2013 Admission Date: 08/13/2013 LOS: 1 day Assessment/Plan: Active Problems: Ventral hernia Plan: 1. Transition to oral pain meds 2. Bowel regimen 3. Encouraged to ambulate 4. Consider adding Klonopin (home med) Subjective Jarett Barrera is a 53 y.o. male. Patient is doing well with no overnight event s. His pain is well controlled and he states he would like to try weaning himsel f to oral pain meds. He rates his pain as 4/10. He states it is located deeper a nd cannot be reproduced by touch. Positive nausea, emesis x2, flatus. Negative f or BM. He has not yet ambulated and has been using his IS regularly. Medications Scheduled Meds: senna/docusate (SENOKOT-S) tablet 1 Tab 1 Tab Oral BID lidocaine (LIDODERM) 5 % topical patch 1 Patch 1 Patch Topical QDAY enoxaparin (LOVENOX) syringe 40 mg 40 mg Subcutaneous QDAY(21) Continuous Infusions: PRN and Respiratory Meds:oxyCODone-acetaminophen Q4H PRN, clonazePAM QHS PRN, on dansetron (ZOFRAN) IV Q6H PRN, fentaNYL citrate PF Q1H PRN, naloxone PRN, phenol /menthol PRN Objective Vital Signs: Last Filed Vital Signs: 24 Samantha r Range BP: 114/70 mmHg (08/14 1618) Temp: 37 C (98.6 F) (08/14 1618) Pulse: 75 (08/14 1618) Respirations: 18 PER MINUTE (08/14 1618) SpO2: 96 % (08/14 1618) O2 Delivery: None (Room Air) (08/14 1618) BP: (100-127)/(67-85) Temp: [36.9 C (98.4 F)-37.2 C (99 F)] Pulse: [73-89] Respirations: [14 PER MINUTE-18 PER MINUTE] SpO2: [92 %-98 %] O2 Delivery: [-] Intensity Pain Scale 0-10 (Pain 1): 6 (08/14/13 1800) Filed Vitals: 08/13/13 0937 08/14/13 0301 Weight: 110.678 kg (244 lb) 110.224 kg (243 lb) Intake/Output Summary: (Last 24 hours) Intake/Output Summary (Last 24 hours) at 08/14/13 1901 Last data filed at 08/14/13 1800 Gross per 24 hour Intake 2199 ml Output 2120 ml Net 79 ml Physical Exam General: Alert, cooperative, no distress, appears stated age Lungs: Clear to auscultation bilaterally Heart: Regular rate and rhythm, S1, S2 normal, no murmur, click rub or gallop Abdomen: Soft, non-tender, non-distened. Bowel sounds normal. No masses. No organomegaly. Dressing intact and moderately saturated with dried blood inferior ly. Extremities: Extremities normal, atraumatic, no cyanosis or edema Lab Review 24-hour labs: Results for orders placed during the hospital encounter of 08/13/13 (from the [facility] 24 hour(s)) PHOSPHORUS Collection Time 08/13/13 7:28 PM Component Value Range Phosphorus 3.5 2.0 - 4.0 MG/DL CBC AND DIFF Collection Time 08/14/13 6:05 AM Component Value Range White Blood Cells 6.1 4.5 - 11.0 K/UL RBC 4.40 4.4 - 5.5 M/UL Hemoglobin 13.5 13.5 - 16.5 GM/DL Hematocrit 39.5 (*) 40 - 50 % MCV 89.8 80 - 100 FL MCH 30.6 26 - 34 PG MCHC 34.1 32.0 - 36.0 G/DL RDW 13.2 11 - 15 % Platelet Count 107 (*) 150 - 400 K/UL MPV 9.0 7 - 11 FL Neutrophils 70 41 - 77 % Lymphocytes 22 (*) 24 - 44 % Monocytes 7 4 - 12 % Eosinophils 1 0 - 5 % Basophils 0 0 - 2 % Absolute Neutrophil Count 4.28 1.8 - 7.0 K/UL Absolute Lymph Count 1.33 1.0 - 4.8 K/UL Absolute Monocyte Count 0.44 0 - 0.80 K/UL Absolute Eosinophil Count 0.06 0 - 0.45 K/UL Absolute Basophil Count 0.01 0 - 0.20 K/UL BASIC METABOLIC PANEL Collection Time 08/14/13 6:05 AM Component Value Range Sodium 135 (*) 137 - 147 MMOL/L Potassium 3.7 3.5 - 5.1 MMOL/L Chloride 104 98 - 110 MMOL/L CO2 27 21 - 30 MMOL/L Anion Gap 4 (*) 8 - 12 Glucose 211 (*) 70 - 100 MG/DL Blood Urea Nitrogen 21 7 - 25 MG/DL Creatinine 0.82 0.4 - 1.24 MG/DL Calcium 7.7 (*) 8.6 - 10.3 MG/DL eGFR Non >60 >60 ML/MIN/1.73 SQM eGFR >60 >60 ML/MIN/1.73 SQM MAGNESIUM Collection Time 08/14/13 6:05 AM Component Value Range Magnesium 1.8 1.6 - 2.6 MG/DL Point of Care Testing (Last 24 hours) Glucose: 211 (08/14/13 0605) Radiology and other Diagnostics Review: No pertinent radiology. Sarah Mayers MS Pager * Care Plan - Tangela Prakash RN - 08/14/2013 6:02 PM CDT Problem: Respiratory Impairment (Non-Ventilated Patient) Goal: Effective gas exchange Outcome: Goal Ongoing Patient is maintaining his SaO2 on 96% on room air. Problem: Discharge Planning Goal: Participation in plan of care Outcome: Goal Ongoing Patient is communicating his needs well to staff and has been 100% compliant wit h his plan of care. Problem: Pain Goal: Management of pain Outcome: Goal Ongoing Current pain regimen is adequate for controlling patients pain. Problem: Mobility/Activity Intolerance Goal: Maximize functional ADLs and mobility outcomes Outcome: Goal Ongoing Patient is working with PT today for mobility. He ambulated on the unit with PT * Case Mgmt DC Plan - Dotty Patel - 08/14/2013 9:22 AM CDT Case Management Assessment Date: 08/14/2013 [facility] [address] [facility] [phone] [facility]) Address confirmed? Yes Hospital Adm Date: 08/13/2013 PCP: Gildardo Craig MD Problem: recurrent ventral hernia Plan: 08/13/13 - Open ventral hernia repair with mesh Intervention: EMR reviewed. Went by Patient's room; explained the role of RNCM. Patient live s with , Mignon Barrera, is self employed, and has medical as well as prescri ption coverage through [employer]. Patient is independent with his ADLs and has g ood family support. Discharge Plan: Anticipate Patient to discharge home with family; no CM discharge needs expected at this time. Will follow. Sex: male Age: 53 y.o. : 1960 Primary Language if not Panamanian: Extended Emergency Contact Information Primary Emergency Contact: Mikael Barrera Address: [address] [place] [address] Relation: PARENT Primary Insurance: Yes Secondary Insurance: No Rx Coverage: Yes If Medicare Part D, pt in [facility]? N/A VA Benefits, if yes location? no Financial assistance needed, medications, etc? No Admission Diagnosis/Complaint: Ventral hernia Admitted from: direct Previous Hospitalization: Yes If yes, was hospitalization within last 30 days? No History of Substance Abuse: No History of Current/Previous Mental Health Care: No If yes, symptoms: N/A Provider: Comments: Lives with: With family: Support System/Caregivers: Yes Help available to transport home from hospital? Yes Help available to transport to follow up appointments? 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 Contact or additional information Home Health No Hospice No DME No none Enteral No Infusion No If yes, would you use this/these provider/providers again? N/A Current/Previous Facility FACILITY TYPE YES/NO If yes, comments SNF/LTC no Inpt Rehab no LTAC no If yes, would you consider returning to this facility? N/A Information obtained from: patient Dotty Amanda SHIELD OPERATOR Nurse Sheet Metal Pattern Cutter [phone] * Procedures (Immed Post or Bedside) - Rajeev Ferguson MD - 08/13/2013 12:34 PM CDT Brief Op Note Date: 08/13/2013 Preoperative Dx: recurrent ventral hernia Postoperative Dx: same Procedure: Open repair with mesh Primary Surgeon: Phyllis Precision Grinder External(s): Same Indications: Painful hernia Findings: hernia Anesthesia: General Estimated Blood Loss: Less than 100ml Specimen(s) Removed/Disposition: Old mesh sent. Complications: None Implants: 4.2 x 6.2 inch oval composix mesh Drains: None Disposition: PACU - stable Rajeev Ferguson MD * Anesthesia Pre-Op - Rajeev Blair MD - 08/13/2013 10:13 AM CDT Pre-Operative Anesthesia Assessment Name: Jraett Barrera is a 53 y.o. male. :1960 Chief complaint/ Planned Procedure: Recurrent ventral hernia repair Surgery Eduard e: 08/13/2013 NPO :NPO after 2300hrs 08/12/13 No Known Allergies Medications Inpatient Scheduled Meds: LIDOCAINE (PF) 10 MG/ML (1 %) IJ SOLN (AcuDose pull) NOW LACTATED RINGERS IV SOLP (AcuDose pull) NOW Continuous Infusions: lactated ringers infusion PRN and Respiratory Meds:lidocaine PF PRN Nursing Medical History Diabetes Yes no meds,"diet controlled" Other Yes recurrent ventral hernia,low back pain Nursing Surgical History Back Surgery Yes fusion Other Yes hernia,knee,wrist PMHX/Review of Systems Past Medical History Diagnosis Date Diabetes Airway:Dentures/Partial Cardiovascular: Negative Pulmonary: Negative GI:Reflux: Controlled Endocrine: Diet controlled diabetes Heme/Onc: WNL Renal:Negative : WNL Neurological:Negative Musculoskeletal:{MUSCULOSKELETAL:[id number] PSHX Past Surgical History Procedure Date Back surgery 2010 Hernia repair Knee surgery Acl reconstruction Wrist surgery Complications: No prior anesthetics Family Anesthesia HX: None Social History Substance Use Topics Smoking status: Never Smoker Smokeless tobacco: Never Used Alcohol Use: No Physical Exam Jarett Barrera is a 53 y.o. male. Filed Vitals: 08/13/13 0937 BP: 121/93 Pulse: 82 Temp: 37.1 C (98.8 F) Height: 190.5 cm (75") Weight: 110.678 kg (244 lb) SpO2: 97% Body mass index is 30.50 kg/(m^2). Airway: Mallampati Class I Cardiovascular:Heart sounds: regular rate and rhythm Pulmonary: Breath sounds: clear, equal bilaterally GI/Metabolic:Exam deferred Neurological:WNL Diagnostic Tests No results found for this basename: PHART, PCO2A, PO2ART, HCO3A, BASEEXA, BASED EFA No results found for this basename: WBC No results found for this basename: HGB No results found for this basename: HCT No results found for this basename: PLTCT No results found for this basename: NA No results found for this basename: K No results found for this basename: CL No results found for this basename: CO2 No results found for this basename: BUN No results found for this basename: CR No results found for this basename: GLU No results found for this basename: INR No results found for this basename: PT No results found for this basename: PTT Labs: No pertinent labs EKG: Not obtained CXR: Not obtained Consults: Not obtained Assessment: ASA II Plan: General Plan formulated and discussed with Jarett Barrera Consent obtained. Assessment by: Rajeev Blair MD Date: 08/13/2013 * Admin - SCANNED DOCUMENT - 08/13/2013 8:26 AM CDT documented in this encounter Plan of Treatment Not on filedocumented as of this encounter Procedures Comments Procedure Name Priority Date/Time Associated Diagnosis PROCEDURES-SCAN 08/31/2013 10:38 AM CDT PROCEDURES-SCAN 08/20/2013 8:09 AM CDT CBC AND DIFF Routine 08/16/2013 6:00 AM CDT MAGNESIUM Routine 08/16/2013 6:00 AM CDT BASIC METABOLIC PANEL Routine 08/16/2013 6:00 AM CDT CBC AND DIFF Routine 08/15/2013 5:45 AM CDT MAGNESIUM Routine 08/15/2013 5:45 AM CDT BASIC METABOLIC PANEL Routine 08/15/2013 5:45 AM CDT CBC AND DIFF Routine 08/14/2013 6:05 AM CDT MAGNESIUM Routine 08/14/2013 6:05 AM CDT BASIC METABOLIC PANEL Routine 08/14/2013 6:05 AM CDT PHOSPHORUS Routine 08/13/2013 7:28 PM CDT POC GLUCOSE 08/13/2013 1:07 PM CDT SURGICAL PATHOLOGY 08/13/2013 1:05 PM CDT POC GLUCOSE 08/13/2013 9:48 AM CDT documented in this encounter Results * PROCEDURES-SCAN (08/31/2013 10:38 AM CDT) Narrative Performed At Transcriptions SCANNED DOCUMENT - 08/31/2013 10:38 AM CDT * PROCEDURES-SCAN (08/20/2013 8:09 AM CDT) Narrative Performed At Transcriptions SCANNED DOCUMENT - 08/20/2013 8:09 AM CDT * MAGNESIUM (08/16/2013 6:00 AM CDT) Magnesium 1.8 1.6 - 2.6 MG/DL [facility] Specimen Blood - Blood Performing Organization Address City/[facility]/Zipcode Phone Number MAIN LAB [address] [place] [address] * BASIC METABOLIC PANEL (08/16/2013 6:00 AM CDT) Pathologist [facility] Sodium 138 137 - 147 MMOL/L [facility] Potassium 3.7 3.5 - 5.1 MMOL/L [facility] Chloride 102 98 - 110 MMOL/L [facility] CO2 33 (H) 21 - 30 MMOL/L [facility] Anion Gap 3 (L) 8 - 12 [facility] Glucose 245 (H) 70 - 100 MG/DL [facility] Blood Urea 10 7 - 25 MG/DL [facility] Nitrogen Creatinine 0.82 0.4 - 1.24 MG/DL [facility] Calcium 8.2 (L) 8.6 - 10.3 MG/DL [facility] eGFR Non >60 >60 ML/MIN/1.73 SQM [facility] Comment: [place] The eGFR is not validated for use in drug dosing adjustments.Continue to use estimated creatinine clearance per dosing reference text.Please contact the Clinical Pharmacist for questions. eGFR >60 >60 ML/MIN/1.73 SQM [facility] [place] Comment: The eGFR is not validated for use in drug dosing adjustments.Continue to use estimated creatinine clearance per dosing reference text.Please contact the Clinical Pharmacist for questions. Specimen Blood - Blood Performing Organization Address City/[facility]/Zipcode Phone Number MAIN LAB [address] [place] [address] * CBC AND DIFF (08/16/2013 6:00 AM CDT) Pathologist [facility] White Blood 5.7 4.5 - 11.0 K/UL [facility] Cells RBC 4.18 (L) 4.4 - 5.5 M/UL [facility] Hemoglobin 13.0 (L) 13.5 - 16.5 GM/DL [facility] Hematocrit 38.0 (L) 40 - 50 % [facility] MCV 90.8 80 - 100 FL [facility] MCH 31.1 26 - 34 PG [facility] MCHC 34.3 32.0 - 36.0 G/DL [facility] RDW 12.9 11 - 15 % [facility] Platelet Count 105 (L) 150 - 400 K/UL [facility] MPV 9.2 7 - 11 FL [facility] Neutrophils 57 41 - 77 % [facility] Lymphocytes 30 24 - 44 % [facility] Monocytes 11 4 - 12 % [facility] Eosinophils 2 0 - 5 % [facility] Basophils 0 0 - 2 % [facility] Absolute 3.21 1.8 - 7.0 K/UL [facility] Neutrophil Count Absolute Lymph 1.70 1.0 - 4.8 K/UL [facility] Count Absolute 0.63 0 - 0.80 K/UL [facility] Monocyte Count Absolute 0.12 0 - 0.45 K/UL [facility] Eosinophil Count Absolute 0.02 0 - 0.20 K/UL [facility] Basophil Count Specimen Blood - Blood Performing Organization Address City/[facility]/Zipcode Phone Number MAIN LAB [address] [place] [address] * MAGNESIUM (08/15/2013 5:45 AM CDT) Magnesium 1.7 1.6 - 2.6 MG/DL [facility] Specimen Blood - Blood Performing Organization Address City/[facility]/Zipcode Phone Number MAIN LAB [address] [place] [address] * BASIC METABOLIC PANEL (08/15/2013 5:45 AM CDT) Sodium 136 (L) 137 - 147 MMOL/L [facility] Potassium 3.6 3.5 - 5.1 MMOL/L [facility] Chloride 102 98 - 110 MMOL/L [facility] CO2 27 21 - 30 MMOL/L [facility] Anion Gap 7 (L) 8 - 12 [facility] Glucose 239 (H) 70 - 100 MG/DL [facility] Blood Urea 11 7 - 25 MG/DL [facility] Nitrogen Creatinine 0.65 0.4 - 1.24 MG/DL [facility] Calcium 7.9 (L) 8.6 - 10.3 MG/DL [facility] eGFR Non >60 >60 ML/MIN/1.73 SQM [facility] Comment: [place] The eGFR is not validated for use in drug dosing adjustments.Continue to use estimated creatinine clearance per dosing reference text.Please contact the Clinical Pharmacist for questions. eGFR >60 >60 ML/MIN/1.73 SQM [facility] [place] Comment: The eGFR is not validated for use in drug dosing adjustments.Continue to use estimated creatinine clearance per dosing reference text.Please contact the Clinical Pharmacist for questions. Specimen Blood - Blood Performing Organization Address City/State/Zipcode Phone Number MAIN LAB [address] [place] [address] * CBC AND DIFF (08/15/2013 5:45 AM CDT) White Blood 6.0 4.5 - 11.0 K/UL [facility] Cells RBC 4.37 (L) 4.4 - 5.5 M/UL [facility] Hemoglobin 13.4 (L) 13.5 - 16.5 GM/DL [facility] Hematocrit 39.1 (L) 40 - 50 % [facility] MCV 89.5 80 - 100 FL [facility] MCH 30.6 26 - 34 PG [facility] MCHC 34.2 32.0 - 36.0 G/DL [facility] RDW 12.9 11 - 15 % [facility] Platelet Count 103 (L) 150 - 400 K/UL [facility] MPV 9.1 7 - 11 FL [facility] Neutrophils 74 41 - 77 % [facility] Lymphocytes 18 (L) 24 - 44 % [facility] Monocytes 7 4 - 12 % [facility] Eosinophils 1 0 - 5 % [facility] Basophils 0 0 - 2 % [facility] Absolute 4.48 1.8 - 7.0 K/UL [facility] Neutrophil Count Absolute Lymph 1.08 1.0 - 4.8 K/UL [facility] Count Absolute 0.40 0 - 0.80 K/UL [facility] Monocyte Count Absolute 0.06 0 - 0.45 K/UL [facility] Eosinophil Count Absolute 0.02 0 - 0.20 K/UL [facility] Basophil Count Specimen Blood - Blood Performing Organization Address City/[facility]/Zipcode Phone Number [facility] [address] [place] [address] * MAGNESIUM (08/14/2013 6:05 AM CDT) Magnesium 1.8 1.6 - 2.6 MG/DL [facility] Specimen Blood - Blood Performing Organization Address City/[facility]/Zipcode Phone Number MAIN LAB [address] [place] [address] * BASIC METABOLIC PANEL (08/14/2013 6:05 AM CDT) Sodium 135 (L) 137 - 147 MMOL/L [facility] Potassium 3.7 3.5 - 5.1 MMOL/L [facility] Chloride 104 98 - 110 MMOL/L [facility] CO2 27 21 - 30 MMOL/L [facility] Anion Gap 4 (L) 8 - 12 [facility] Glucose 211 (H) 70 - 100 MG/DL [facility] Blood Urea 21 7 - 25 MG/DL [facility] Nitrogen Creatinine 0.82 0.4 - 1.24 MG/DL [facility] Calcium 7.7 (L) 8.6 - 10.3 MG/DL [facility] eGFR Non >60 >60 ML/MIN/1.73 SQM [facility] Comment: [place] The eGFR is not validated for use in drug dosing adjustments.Continue to use estimated creatinine clearance per dosing reference text.Please contact the Clinical Pharmacist for questions. eGFR >60 >60 ML/MIN/1.73 SQM [facility] [place] Comment: The eGFR is not validated for use in drug dosing adjustments.Continue to use estimated creatinine clearance per dosing reference text.Please contact the Clinical Pharmacist for questions. Specimen Blood - Blood Performing Organization Address City/State/Zipcode Phone Number [facility] [address] [place] [address] * CBC AND DIFF (08/14/2013 6:05 AM CDT) White Blood 6.1 4.5 - 11.0 K/UL [facility] Cells RBC 4.40 4.4 - 5.5 M/UL [facility] Hemoglobin 13.5 13.5 - 16.5 GM/DL [facility] Hematocrit 39.5 (L) 40 - 50 % [facility] MCV 89.8 80 - 100 FL [facility] MCH 30.6 26 - 34 PG [facility] MCHC 34.1 32.0 - 36.0 G/DL [facility] RDW 13.2 11 - 15 % [facility] Platelet Count 107 (L) 150 - 400 K/UL [facility] MPV 9.0 7 - 11 FL [facility] Neutrophils 70 41 - 77 % [facility] Lymphocytes 22 (L) 24 - 44 % [facility] Monocytes 7 4 - 12 % [facility] Eosinophils 1 0 - 5 % [facility] Basophils 0 0 - 2 % [facility] Absolute 4.28 1.8 - 7.0 K/UL [facility] Neutrophil Count Absolute Lymph 1.33 1.0 - 4.8 K/UL [facility] Count Absolute 0.44 0 - 0.80 K/UL [facility] Monocyte Count Absolute 0.06 0 - 0.45 K/UL [facility] Eosinophil Count Absolute 0.01 0 - 0.20 K/UL MAIN LAB Basophil Count Specimen Blood - Blood Performing Organization Address [facility] Phone Number MA[facility] LAB [address] [place] [address] * PHOSPHORUS (08/13/2013 7:28 PM CDT) Phosphorus 3.5 2.0 - 4.0 MG/DL [facility] Specimen Blood - Blood Performing Organization Address [facility] Phone Number MAIN LAB [address] [place] [address] * POC GLUCOSE (08/13/2013 1:07 PM CDT) Glucose, POC 268 (H) 70 - 100 MG/DL [facility] Specimen Performing Organization Address [facility] Phone Number [facility] LAB [address] [place] [address] * SURGICAL PATHOLOGY (08/13/2013 1:05 PM CDT) PATHOLOGY [facility] LAB RESULTS REPORT [email or web address] Radha Wiggins MD, PhD, Director Anatomic Pathology Department of Pathology and Laboratory Medicine [address] [place] [id number] Surgical Pathology Office:[phone] :[phone] SURGICAL PATHOLOGY REPORT NAME: JARETT BARRERA SURG PATH #: [id number] MR #: [id number] ALT ID #: LOCATION: 45 DATE OF PROCEDURE: 08/13/2013 AGE:53 SEX: M DATE RECEIVED: 08/13/2013 : 1960TIME RECEIVED:13:05 PHYSICIAN: RAJEEV FERGUSON DATE OF REPORT: 08/14/2013 COPY TO:DATE OF PRINTIN08/14/2013 Final Diagnosis: A. Mesh for identification, gross only: Consistent with mesh by gross examination. Attestation: By this signature, I attest that I have personally formulated the final interpretation expressed in this report and that the above diagnosis is based upon my examination of the slides and/or other material indicated in this report. Electronically Signed Out lkr/08/13/2013 Interpreted by: Maikel Ramirez, Attending Physician BO Diaz Material Received: A: mesh for identification History: 53 year old male with a history of recurrent ventral hernia. Gross Description: A.Received in formalin labeled with the patient's name and "mesh for identification" is a 9.5 x 8.5 x 2.3 cm piece of young-jarrett metallic synthetic mesh material.Embedded within the mesh there is young-yellow glistening grossly unremarkable adipose tissue.No gross abnormalities are noted within the specimen.(js) lkr/08/13/2013 BO Diaz If immunohistochemical stains and/or in situ hybridization are cited in this report, the performance characteristics were determined by the Department of Pathology and Laboratory Medicine of the [facility] ([employer]) in compliance with CLIA'88 regulations.Some of these tests rely on the use of "analyte specific reagents" and are subject to specific labeling requirements by the FDA. Known positive and negative control tissues demonstrate appropriate staining.This testing was developed by the Department of Pathology and Laboratory Medicine of the [facility].It has not been cleared or approved by the FDA.The FDA has determined that such clearance or approval is not necessary. Specimen Narrative Performed At Transcriptions SCANNED DOCUMENT - 08/14/2013 4:00 PM CDT Performing Organization Address City/State/Zipcode Phone Number LAB RESULTS * POC GLUCOSE (08/13/2013 9:48 AM CDT) Glucose, POC 289 (H) 70 - 100 MG/DL MAIN LAB Specimen Performing Organization Address City/State/Zipcode Phone Number MAIN LAB [address] [place] [address] documented in this encounter Visit Diagnoses Diagnosis Ventral hernia - Primary Ventral hernia, unspecified, without mention of obstruction or gangrene Abdominal pain Abdominal pain, unspecified site documented in this encounter Administered Medications Action Date Dose Rate Site Medication Order MAR Action 08/16/2013 12:45 PM CDT 10 mg bisacodyl (DULCOLAX) rectal suppository Given 10 mg 10 mg, Rectal, DAILY, First dose on 08/16/13 at 1130, Until Discontinued, Hold for loose stools, 08/14/2013 6:30 AM CDT 1 g ceFAZolin (ANCEF) IVP 1 g Given 1 g, Intravenous, EVERY 8 HOURS, 3 doses, First dose on Sun08/13/13 at 1430, Last dose on Sun08/14/13 at 0630, IV PUSH -- RECONSTITUTE each 1 g vial by adding 10 mL 0.9% NACL, 1 g Given 08/13/2013 10:30 PM CDT 1 g Given 08/13/2013 2:30 PM CDT 08/15/2013 10:26 PM CDT 1 mg clonazePAM (KLONOPIN) tablet 1 mg Given 1 mg, Oral, AT BEDTIME PRN, Starting Melina 08/14/13 at 1813, Until 08/16/13 at 1947, Anxiety 1 mg Given 08/14/2013 10:01 PM CDT 08/16/2013 12:45 PM CDT 5 mg diazepam (VALIUM) tablet 2.5-5 mg Given 2.5-5 mg, Oral, EVERY 6 HOURS PRN, Starting Sun08/15/13 at 1515, Until 08/16/13 at 1947, Muscle Cramps, Spasms 08/14/2013 9:00 AM CDT 30 mg Arm, Right enoxaparin (LOVENOX) syringe 30 mg Given 30 mg, Subcutaneous, DAILY, First dose on Sun08/14/13 at 0900, Until Discontinued, For patients undergoing surgery: Consult physician in advance -- enoxaparin is an anticoagulant and may need to be held for 12hr prior to surgery or invasive procedures. NOTE: This is a HIGH ALERT Medication., For CrCl <30, 08/15/2013 9:00 PM CDT 40 mg Abdomen:LLQ enoxaparin (LOVENOX) syringe 40 mg Given 40 mg, Subcutaneous, DAILY, First dose on Melina 08/14/13 at 2100, Until Discontinued, For patients undergoing surgery: Consult physician in advance -- enoxaparin is an anticoagulant and may need to be held for 12hr prior to surgery or invasive procedures. NOTE: This is a HIGH ALERT Medication., 08/13/2013 4:42 PM CDT fentaNYL (SUBLIMAZE) COUPON CLERK 550 mcg/ NS Dose/Rate 55 mL infusion syr (std conc)(premade) Verify Intravenous, COUPON CLERK, Starting 08/13/13 at 1430, Until Melina 08/14/13 at 1038, COUPON CLERK Dose: 1 ml per dose (Pt. Demand Dose) COUPON CLERK Delay: 6 min (Lock out Interval) COUPON CLERK Basal Rate: 0 ml/h (Continuous Dose) COUPON CLERK 1 Hour Limit: 10 ml=(Basal Rate + (COUPON CLERK Dose x 60min/ COUPON CLERK Delay)) COUPON CLERK Initial Bolus: 2 ml (Loading Dose) COUPON CLERK Additional Bolus (Pain >5): 2 mL, Re-assess in 15 minutes, may repeat bolus ONE time if pain not adequately controlled. (MAXIMUM of 2 bolus doses only). Check pump to ensure proper function and appropriate patient utilization. If pain still not adequately controlled, contact physician. Stop COUPON CLERK if patient difficult to arouse, or systolic BP drops more than 20 mmHg from baseline. COUPON CLERK Conc=10 mcg/mL--DO NOT REFRIGERATE--NOTE:This is a HIGH ALERT Medication: MEDICATION DOUBLE CHECK Policy applies Only Patient my push COUPON CLERK button Administer only with COUPON CLERK Pump -- Only Patient may push COUPON CLERK button NOTE: This is a HIGH ALERT Medication., Given - New Bag 08/13/2013 2:00 PM CDT 08/13/2013 2:38 PM CDT 50 mcg fentaNYL citrate PF (SUBLIMAZE) Given injection 25-50 mcg 25-50 mcg, Intravenous, NEEDED, Starting Sun08/13/13 at 1253, Until 08/13/13 at 1458, Pain, Post anesthesia orders. PRN, may repeat up to 200 mcg. Notify anesthesia for inadequate analgesia. NOTE: This is a HIGH ALERT Medication., PACU (only) 50 mcg Given 08/13/2013 2:30 PM CDT 50 mcg Given 08/13/2013 1:35 PM CDT 08/14/2013 1:24 PM CDT 50 mcg fentaNYL citrate PF (SUBLIMAZE) Given injection 25-50 mcg 25-50 mcg, Intravenous, EVERY 1 HOUR PRN, Starting 08/13/13 at 1724, Until 08/16/13 at 1947, Pain, NOTE: This is a HIGH ALERT Medication., 50 mcg Given 08/14/2013 12:04 PM CDT 50 mcg Given 08/14/2013 10:39 AM CDT FENTANYL CITRATE-0.9%NACL (PF) 550 MCG/55 ML IJ SPCA (AcuDose pull) NOW, 1 dose, Sun08/13/13 at 1400, Sobia Jim: cabinet override Administer only with COUPON CLERK Pump -- Only Patient may push COUPON CLERK button NOTE: This is a HIGH ALERT Medication., Sobia Jim: cabinet override, 08/14/2013 5:01 AM CDT 2 tablets HYDROcodone/acetaminophen (NORCO; Given VICODIN) 5-325 mg tablet 1-2 Tab 1-2 tablet, Oral, EVERY 4 HOURS PRN, Starting Sun08/13/13 at 1350, Until Sun08/14/13 at 0658, Pain, TOTAL ACETAMINOPHEN DOSE NOT TO EXCEED 4GM DAILY NOTE: This is a HIGH ALERT Medication., 2 tablets Given 08/13/2013 11:00 PM CDT 2 tablets Given 08/13/2013 6:52 PM CDT 08/14/2013 3:00 PM CDT 15 mg ketorolac (TORADOL) injection 15 mg Given 15 mg, Intravenous, EVERY 8 HOURS, 1 dose, First dose on Sun08/14/13 at 1500, Please note: this medication will be automatically discontinued 5 days after ordered per hospital policy. Please obtain a new order if the medication needs to be continued., 08/13/2013 11:00 AM CDT 0 mL/hr lactated ringers infusion Given - See 1,000 mL, 1,000 mL, Intravenous, at 20 OR/Proc mL/hr, CONTINUOUS, Starting Sun08/13/13 Flowsheet at 0945, Until Sun08/13/13 at 1458, Pre-Op 0 mL/hr Given - See OR/Proc Flowsheet 08/13/2013 9:46 AM CDT LACTATED RINGERS IV SOLP (AcuDose pull) NOW, 1 dose, Sun08/13/13 at 0945, Alice Ferreira: cabinet override, Alice Ferreira: cabinet override, 08/16/2013 8:10 AM CDT 1 patch Abdominal Tissue lidocaine (LIDODERM) 5 % topical patch 1 Patch/Topica Patch l Applied 1 patch, Topical, Administer over 12 Hours, DAILY, First dose on Melina 08/14/13 at 1500, Until Discontinued, NURSING PLEASE NOTE: Apply patch ONCE DAILY to affected area and REMOVE after designated duration. Apply only to intact skin. Patch may be cut to fit affected area., 1 patch Abdominal Tissue Patch/Topical Applied 08/15/2013 8:50 AM CDT 1 patch Abdominal Tissue Patch/Topical Applied 08/14/2013 3:00 PM CDT LIDOCAINE (PF) 10 MG/ML (1 %) IJ SOLN (AcuDose pull) NOW, 1 dose, Sun08/13/13 at 0945, Alice Ferreira: cabinet override, Alice Ferreira: cabinet override, 08/13/2013 9:45 AM CDT lidocaine PF 1% (10 mg/mL) injection Given - See 0.1-2 mL OR/Proc 0.1-2 mL, Injection, NEEDED, Starting Flowsheet Sun08/13/13 at 1033, Until Sun08/13/13 at 1458, Other..., for IV insertion, Pre-Op 08/16/2013 9:35 AM CDT 400 mg magnesium oxide (MAG-OX) tablet 400 mg Given 400 mg, Oral, TWICE DAILY, First dose on 08/16/13 at 0930, Until Discontinued, Delivers 241.3mg elemental magnesium per tab, 08/16/2013 8:10 AM CDT 4 mg ondansetron (ZOFRAN) injection 4 mg Given 4 mg, Intravenous, EVERY 6 HOURS PRN, Starting 08/13/13 at 1724, Until 08/16/13 at 1947, Nausea 4 mg Given 08/15/2013 4:48 AM CDT 4 mg Given 08/14/2013 5:30 AM CDT 08/16/2013 3:22 PM CDT 2 tablets oxyCODone-acetaminophen (PERCOCET; Given ENDOCET; ROXICET) 5-325 mg tablet 1-2 Tab 1-2 tablet, Oral, EVERY 4 HOURS PRN, Starting Melina 08/14/13 at 0658, Until 08/16/13 at 1947, Pain, TOTAL ACETAMINOPHEN DOSE NOT TO EXCEED 4GM DAILY NOTE: This is a HIGH ALERT Medication., 2 tablets Given 08/16/2013 7:27 AM CDT 2 tablets Given 08/15/2013 10:25 PM CDT 08/13/2013 6:31 PM CDT 1 lozenge phenol/menthol (CEPASTAT) lozenge 1 Given Lozenge 1 lozenge, Oral, NEEDED, Starting 08/13/13 at 1837, Until 08/16/13 at 1947, Throat Pain 08/16/2013 2:25 PM CDT 17 g polyethylene glycol 3350 (GLYCOLAX; Given MIRALAX) powder 17 g 17 g, Oral, DAILY, First dose on 08/16/13 at 1530, Until Discontinued, 17 g dose=1 capful filled to white line, 08/16/2013 9:35 AM CDT 40 mEq potassium chloride SR (K-DUR) tablet 40 Given mEq 40 mEq, Oral, ONCE, 1 dose, 08/16/13 at 0830, Do NOT break or crush tablet , 08/16/2013 8:10 AM CDT 1 tablet senna/docusate (SENOKOT-S) tablet 1 Tab Given 1 tablet, Oral, TWICE DAILY, First dose on Melina 08/14/13 at 0900, Until Discontinued, Hold for loose stools, 1 tablet Given 08/15/2013 9:00 PM CDT 1 tablet Given 08/15/2013 8:50 AM CDT 08/14/2013 5:27 AM CDT 125 mL/hr sodium chloride 0.9 % infusion Given - New 1,000 mL, Intravenous, at 125 mL/hr, Bag CONTINUOUS, Starting Sun08/13/13 at 1400, Until Melina 08/14/13 at 0659 125 mL/hr Given - New Bag 08/13/2013 10:20 PM CDT 1,000 mL 125 mL/hr Given - New Bag 08/13/2013 2:18 PM CDT documented in this encounter
--- OUTSIDE RECORDS SUMMARY | 2019-04-24 13:50 | XMS REPORT | Encounter Summary ---
Author Author [facility] Organization [facility] Address Unknown Phone Unavailable Care Team Providers Care Wire Spinner Name Role Phone Gordo Ferguson MD Unavailable Unknown, Unknown Md PCP Unavailable Reason for Visit * Reason Comments Possible Hernia Encounter Details Care Team Description Date Type Department Gordo Ferguson MD [address] [place] [address] Recurrent ventral hernia (Primary Dx) [address] [facility] Physicians - Surgery [address] [place] [address] Social History Date Tobacco Use Types Packs/Day [...] Signs Reading Time Taken Comments Vital Sign 122/80 08/11/2013 1:34 PM CDT Blood Pressure 109 08/11/2013 1:34 PM CDT Pulse 36.7 C (98 F) 08/11/2013 1:34 PM CDT Temperature 18 08/11/2013 1:34 PM CDT Respiratory Rate 98% 08/11/2013 1:34 PM CDT Oxygen Saturation - - Inhaled Oxygen Concentration 112.5 kg (248 lb 1.6 oz) 08/11/2013 1:34 PM CDT Weight 188 cm (6' 2") 08/11/2013 1:34 PM CDT Height 31.85 08/11/2013 1:34 PM CDT Body Mass Index documented in this encounter Progress Notes * Gordo Ferguson MD - 08/11/2013 1:42 PM CDT Subjective: Jarett Bennett is a 52 y.o. male. History of Present Illness Mr. Bennett comes in today with abdominal pain, bloating and a possible recurrent ventral hernia. He reports that for the last several weeks has been interrupti ng his sleep. Review of Systems Constitutional: Positive for activity change, appetite change and fatigue. HENT: Positive for trouble swallowing, neck pain and neck stiffness. Eyes: Positive for photophobia. Respiratory: Positive for apnea. Cardiovascular: Positive for leg swelling. Gastrointestinal: Positive for abdominal pain and abdominal distention. Genitourinary: Positive for flank pain. Musculoskeletal: Positive for myalgias, back pain and arthralgias. Skin: Positive for wound. Neurological: Positive for numbness. Hematological: Bruises/bleeds easily. Psychiatric/Behavioral: Positive for disturbed wake/sleep cycle. The patient is nervous/anxious. Objective: acetaminophen (TYLENOL) 325 mg tablet Take 650 mg by mouth every 4 hours as needed. clonazePAM (KLONOPIN) 1 mg tablet Take 1 mg by mouth twice daily. Filed Vitals: 08/11/13 1334 BP: 122/80 Pulse: 109 Temp: 36.7 C (98 F) TempSrc: Oral Resp: 18 Height: 188 cm (74") Weight: 112.537 kg (248 lb 1.6 oz) SpO2: 98% Body mass index is 31.85 kg/(m^2). Physical Exam Constitutional: He is oriented to person, place, and time. He appears well-devel oped and well-nourished. HENT: Head: Normocephalic and atraumatic. [...] time. Skin: Skin is warm and dry. Assessment and Plan: Painful recurrent ventral hernia. Would like repaired. Will plan to repair on 08/13/13 at [facility] documented in this encounter Procedure Notes * SCANNED DOCUMENT - 08/26/2013 12:54 PM CDT * SCANNED DOCUMENT - 08/22/2013 9:28 AM CDT documented in this encounter Miscellaneous Notes * Admin - SCANNED DOCUMENT - 08/18/2013 2:08 PM CDT documented in this encounter Plan of Treatment Not on filedocumented as of this encounter Visit Diagnoses Diagnosis Recurrent ventral hernia - Primary Incisional hernia without mention of obstruction or gangrene documented in this encounter
--- OUTSIDE RECORDS SUMMARY | 2019-04-24 13:56 | XMS REPORT | CCD ---
Author Author Madeline Kennedy MD, [facility] Address [address] [place] [address] Phone Care Team Providers Care Limb Driver Name Role Phone PP Unavailable CCM Unavailable Summary Purpose Interface Exchange Insurance Providers Payer name Policy type / Coverage type Covered alliance party ID Effective Begin Date Effective End Date [employer] Commercial Insurance [id number] 2018 Unknown Family history Father Diagnosis Age At Onset Hyperlipidemia Unknown Heart Attack Unknown Mother Diagnosis Age At Onset Hypertension Unknown Social History Social History Element Codes Description Effective Dates Marital status Unknown Mignon 01/20/2016 Number of children Unknown 4 01/20/2016 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/[address]: 469415507 Never smoker 01/20/[address]: 983103042 Never drinks alcohol 01/20/2016 Allergies, Adverse Reactions, Alerts Substance Reaction Codes Entered Date Inactivated Date Status * NO KNOWN DRUG ALLERGIES Unknown 05/23/2016 No Inactive Date Active Past Medical History Illness Codes Condition Status Onset Date Resolved Date Palpitations ICD-9: 785.1 ICD-10: R00.2 Active 04/08/2019 Unknown Essential (primary) hypertension ICD-9: 401.1 ICD-10: I10 Active 03/01/2017 Unknown Orthostatic hypotension ICD-9: 458.0 ICD-10: I95.1 Active 02/28/2018 Unknown 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 ICD-10: I95.2 Active 02/17/2019 Unknown Anorexia ICD-9: 783.0 ICD-10: R63.0 Active 04/08/2019 Unknown Dizziness and giddiness ICD-9: 780.4 ICD-10: R42 Active 04/08/2019 Unknown Other fatigue ICD-9: 780.79 ICD-10: R53.83 Active 08/27/2017 Unknown Other malaise ICD-9: 780.79 ICD-10: R53.81 Active 08/27/2017 Unknown Weakness ICD-9: 780.79 ICD-10: R53.1 Active 04/08/2019 Unknown Contusion of left hand, initial encounter ICD-9: 923.20 ICD-10: S60.222A Active 04/03/2019 Unknown Headache ICD-9: 784.0 ICD-10: R51 Active 04/03/2019 Unknown Nasal congestion ICD-9: 478.19 ICD-10: R09.81 Active 02/16/2017 Unknown Pain in left finger(s) ICD-9: 729.5 ICD-10: M79.645 Active 04/03/2019 Unknown Pain in left hand ICD-9: 729.5 ICD-10: M79.642 Active 04/03/2019 Unknown 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: 414.00 [...] ICD-9: 296.22 ICD-10: F32.1 Active 02/28/2018 Unknown Gastro-esophageal reflux disease without esophagitis ICD-9: 530.81 ICD-10: K21.9 Active 06/07/2017 Unknown Pain in left shoulder ICD- 9: [...] Problems Condition Codes Effective Dates Condition Status Palpitations ICD-9: 785.1 ICD-10: R00.2 04/08/2019 Active Essential (primary) hypertension ICD-9: 401.1 ICD-10: I10 03/01/2017 Active Orthostatic hypotension ICD-9: 458.0 ICD-10: I95.1 02/28/2018 Active 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 ICD-10: I95.2 02/17/2019 Active Anorexia ICD-9: 783.0 ICD-10: R63.0 04/08/2019 Active Dizziness and giddiness ICD-9: 780.4 ICD-10: R42 04/08/2019 Active Other fatigue ICD-9: 780.79 ICD-10: R53.83 08/27/2017 Active Other malaise ICD-9: 780.79 ICD-10: R53.81 08/27/2017 Active Weakness ICD-9: 780.79 ICD-10: R53.1 04/08/2019 Active Contusion of left hand, initial encounter ICD-9: 923.20 ICD-10: S60.222A 04/03/2019 Active Headache ICD-9: 784.0 ICD-10: R51 04/03/2019 Active Nasal congestion ICD-9: 478.19 ICD-10: R09.81 02/16/2017 Active Pain in left finger(s) ICD-9: 729.5 ICD-10: M79.645 04/03/2019 Active Pain in left hand ICD-9: 729.5 ICD-10: M79.642 04/03/2019 Active 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: 414.00 [...] moderate ICD-9: 296.22 ICD-10: F32.1 02/28/2018 Active Gastro-esophageal reflux disease without esophagitis ICD-9: 530.81 ICD-10: K21.9 06/07/2017 Active Pain in left shoulder ICD- 9: [...] Novolog Flexpen U-100 Insulin aspart 100 unit/mL (3 mL) subcutaneous RxNorm: 5428755 10 Unit(s) SQ AC 04/14/2019 No Stop Date Active valsartan 80 mg tablet RxNorm: 700554 1/2 Tablet(s) PO daily 04/14/2019 04/14/2019 Inactive Topamax 25 mg tablet RxNorm: 551983 1 Tablet(s) PO BID 03/11/2019 04/13/2019 Inactive Topamax 25 mg tablet RxNorm: 260396 1 Tablet(s) PO BID 03/11/2019 03/10/2019 Inactive valsartan 40 mg tablet RxNorm: 197184 1/2 Tablet(s) PO daily 03/07/2019 04/13/2019 Inactive metoprolol succinate ER 25 mg tablet,extended release 24 hr RxNorm: 164261 1 Tablet(s) PO QPM 03/07/2019 03/09/2019 Inactive Cymbalta 30 mg capsule,delayed release RxNorm: 625855 1 Capsule(s) PO daily 02/27/2019 04/13/2019 Inactive Lyrica 50 mg capsule RxNorm: 912801 Capsule(s) PO daily 02/26/2019 06/25/2019 Active Cymbalta 60 mg capsule,delayed release RxNorm: 849551 1 Capsule(s) PO QAM 02/19/2019 02/26/2019 Inactive will call for refill- dose change Coreg 6.25 mg tablet RxNorm: 311183 1 Tablet(s) daily 02/19/2019 02/26/2019 Inactive clonazepam 1 mg tablet RxNorm: 366323 2 Tablet(s) PO HS 02/18/2019 06/14/2019 Active Tresiba FlexTouch U-200 insulin 200 unit/mL (3 mL) subcutaneous pen RxNorm: 5293997 50 Unit(s) SQ daily 01/08/2019 05/07/2019 Active please give him 30 day supply Protonix 40 mg tablet,delayed release RxNorm: 796675 1 Tablet(s) PO daily 12/31/2018 01/29/2019 Inactive Tresiba FlexTouch U-200 insulin 200 unit/mL (3 mL) subcutaneous pen RxNorm: 3727702 50 Unit(s) SQ daily 12/31/2018 01/07/2019 Inactive please give him 30 day supply Augmentin 500 mg-125 mg tablet RxNorm: 732751 1 Tablet(s) PO TID 12/26/2018 01/04/2019 Inactive Augmentin 500 mg-125 mg tablet RxNorm: 287168 1 Tablet(s) PO TID 12/26/2018 12/25/2018 Inactive ProAir HFA 90 mcg/actuation aerosol inhaler RxNorm: 1194399 2 Puff(s) INH QID as needed 11/18/2018 04/13/2019 Inactive Lyrica 50 mg capsule RxNorm: 457956 Capsule(s) PO daily 11/13/2018 02/07/2019 Inactive Cymbalta 30 mg capsule,delayed release RxNorm: 534591 1 Capsule(s) PO QAM 11/13/2018 02/18/2019 Inactive Lyrica 50 mg capsule RxNorm: 485192 Capsule(s) PO daily 11/13/2018 11/12/2018 Inactive Symbicort 160 mcg-4.5 mcg/actuation HFA aerosol inhaler RxNorm: 4708520 2 Puff(s) INH BID 11/12/2018 12/11/2018 Inactive azithromycin 500 mg tablet RxNorm: 527137 500mg on day 1 then 250 mg daily x 4 more day Tablet(s) PO 11/07/2018 11/06/2018 Inactive 500mg on day 1 and then 250mg daily 2-4 cefdinir 300 mg capsule RxNorm: 493162 1 Capsule(s) PO BID 11/07/2018 11/06/2018 Inactive albuterol sulfate 2.5 mg/3 mL (0.083 %) solution for nebulization RxNorm: 792476 3 Milliliter(s) INH UD 11/07/2018 04/13/2019 Inactive azithromycin 500 mg tablet RxNorm: 716219 500mg on day 1 then 250 mg daily x 4 more day Tablet(s) PO 11/07/2018 01/07/2019 Inactive 500mg on day 1 and then 250mg daily 2-4 cefdinir 300 mg capsule RxNorm: 117875 1 Capsule(s) PO BID 11/07/2018 11/13/2018 Inactive Levaquin 500 mg tablet RxNorm: 094368 1 Tablet(s) PO daily TAKE ONE TABLET BY MOUTH DAILY UNTIL GONE 10/31/2018 11/13/2018 Inactive Levaquin 500 mg tablet RxNorm: 528315 1 Tablet(s) PO daily 10/30/2018 11/12/2018 Inactive valsartan 80 mg tablet RxNorm: 628108 1/2 Tablet(s) PO daily 10/23/2018 03/06/2019 Inactive doxycycline hyclate 100 mg tablet RxNorm: 6491452 1 Tablet(s) PO BID 10/21/2018 10/27/2018 Inactive ketorolac 60 mg/2 mL intramuscular solution RxNorm: 7392964 Milliliter(s) IM 10/21/2018 10/21/2018 Inactive Levaquin 500 mg tablet RxNorm: 709494 1 Tablet(s) PO daily 10/17/2018 10/31/2018 Inactive albuterol sulfate 2.5 mg/3 mL (0.083 %) solution for nebulization RxNorm: 238523 3 Milliliter(s) INH UD 10/14/2018 11/06/2018 Inactive Levaquin 500 mg tablet RxNorm: 790676 1 Tablet(s) PO daily 10/14/2018 10/16/2018 Inactive Tessalon Perles 100 mg capsule RxNorm: 189693 1-2 Capsule(s) PO TID PRN 10/14/2018 04/13/2019 Inactive albuterol sulfate 2.5 mg/3 mL (0.083 %) solution for nebulization RxNorm: 136254 3 Milliliter(s) INH UD 09/30/2018 10/13/2018 Inactive Kenalog 40 mg/mL suspension for injection RxNorm: 0840187 1.5 Milliliter(s) Inj 09/30/2018 09/30/2018 Inactive Coreg 6.25 mg tablet RxNorm: 486324 TAKE ONE TABLET BY MOUTH TWICE A DAY 09/30/2018 02/18/2019 Inactive Keflex 500 mg capsule RxNorm: 638595 1 Capsule(s) PO TID 09/27/2018 10/03/2018 Inactive prednisone 20 mg tablet RxNorm: 140849 2 Tablet(s) PO daily 09/27/2018 09/29/2018 Inactive Kenalog 40 mg/mL suspension for injection RxNorm: 8736299 Milliliter(s) Inj 09/11/2018 09/11/2018 Inactive Zyrtec 10 mg tablet RxNorm: 6667107 1 Tablet(s) PO daily 09/09/2018 04/13/2019 Inactive Keflex 500 mg capsule RxNorm: 156292 1 Capsule(s) PO TID 09/09/2018 09/15/2018 Inactive Tresiba FlexTouch U-200 insulin 200 unit/mL (3 mL) subcutaneous pen RxNorm: 8252262 50 Unit(s) SQ daily 08/30/2018 08/29/2018 Inactive please give him 30 day supply Tresiba FlexTouch U-200 insulin 200 unit/mL (3 mL) subcutaneous pen RxNorm: 5388000 50 Unit(s) SQ daily 08/30/2018 09/28/2018 Inactive please give him 30 day supply Novolog Flexpen U-100 Insulin aspart 100 unit/mL subcutaneous RxNorm: 5321513 8 Unit(s) SQ AC 08/13/2018 04/13/2019 Inactive Novolog Flexpen U-100 Insulin aspart 100 unit/mL subcutaneous RxNorm: 3309262 8 Unit(s) SQ AC 07/22/2018 2018 Inactive this is an update on his medication Novolog Flexpen U-100 Insulin aspart 100 unit/mL subcutaneous RxNorm: 9372081 12 Unit(s) SQ AC 07/05/2018 07/21/2018 Inactive this is an update on his medication Toujeo SoloStar U-300 Insulin 300 unit/mL (1.5 mL) subcutaneous pen RxNorm: 7005402 INJECT 50 UNITS UNDER THE SKIN DAILY 07/01/2018 08/29/2018 Inactive Mucinex 600 mg tablet, extended release RxNorm: 053559 1 Tablet(s) PO BID 06/28/2018 07/04/2018 Inactive Zofran 4 mg tablet RxNorm: 872206 1 Tablet(s) PO TID as needed nausea 06/28/2018 07/02/2018 Inactive Kenalog 40 mg/mL suspension for injection RxNorm: 0966082 Milliliter(s) Inj 06/28/2018 06/28/2018 Inactive Flonase Allergy Relief 50 mcg/actuation nasal spray,suspension RxNorm: 4583482 1 [place] NASAL BID 06/28/2018 07/08/2018 Inactive Lyrica 50 mg capsule RxNorm: 548040 Capsule(s) PO daily 06/24/2018 07/06/2018 Inactive Novolog Flexpen U-100 Insulin aspart 100 unit/mL subcutaneous RxNorm: 7920224 10 Unit(s) SQ AC 06/18/2018 07/04/2018 Inactive this is an update on his medication Lasix 20 mg tablet RxNorm: 736019 1 Tablet(s) PO BIW 06/12/2018 07/02/2018 Inactive atorvastatin 80 mg tablet RxNorm: 118836 1 Tablet(s) PO QHS 06/10/2018 12/06/2018 Inactive clonazepam 1 mg tablet RxNorm: 766161 2 Tablet(s) PO HS as needed 06/10/2018 06/08/2018 Inactive clonazepam 1 mg tablet RxNorm: 418833 2 Tablet(s) PO HS 06/10/2018 02/17/2019 Inactive Lyrica 50 mg capsule RxNorm: 587744 Capsule(s) PO daily 06/10/2018 07/08/2018 Inactive Lasix 20 mg tablet RxNorm: 1 Tablet(s) PO TIW 06/04/2018 06/11/2018 Inactive Toujeo SoloStar U-300 Insulin 300 unit/mL (1.5 mL) subcutaneous pen RxNorm: 8482689 50 Unit(s) SQ daily 05/07/2018 06/30/2018 Inactive meloxicam 15 mg tablet RxNorm: 016709 15 Milligram(s) PO daily 05/02/2018 05/12/2018 Inactive ketorolac 30 mg/mL injection solution RxNorm: 530987 2 Milliliter(s) Inj 05/02/2018 05/02/2018 Inactive Toujeo SoloStar U-300 Insulin 300 unit/mL (1.5 mL) subcutaneous pen RxNorm: 5797349 45 Unit(s) daily 04/29/2018 05/02/2018 Inactive clonazepam 1 mg tablet RxNorm: 209626 1 Tablet(s) PO Q8 as needed 04/29/2018 06/09/2018 Inactive doxycycline hyclate 100 mg tablet RxNorm: 5807459 1 Tablet(s) PO BID 04/29/2018 05/12/2018 Inactive Cymbalta 30 mg capsule,delayed release RxNorm: 497686 1 Capsule(s) PO QAM 03/13/2018 10/08/2018 Inactive Lexapro 10 mg tablet RxNorm: 670396 1 Tablet(s) PO QPM 02/28/2018 03/03/2018 Inactive Toujeo SoloStar U-300 Insulin 300 unit/mL (1.5 mL) subcutaneous pen RxNorm: 5539060 20 Unit(s) daily 02/28/2018 03/03/2018 Inactive Protonix 40 mg tablet,delayed release RxNorm: 954201 1 Tablet(s) PO daily 01/29/2018 06/09/2018 Inactive clonazepam 1 mg tablet RxNorm: 400314 1 Tablet(s) PO Q8 as needed 12/12/2017 03/10/2018 Inactive Tamiflu 75 mg capsule RxNorm: 191242 1 Capsule(s) PO BID 11/29/2017 12/03/2017 Inactive doxycycline hyclate 100 mg capsule RxNorm: 9287397 1 Capsule(s) PO BID 09/07/2017 09/20/2017 Inactive doxycycline hyclate 100 mg capsule RxNorm: 6021121 1 Capsule(s) PO BID 08/27/2017 09/06/2017 Inactive prednisone 20 mg tablet RxNorm: 917417 2 Tablet(s) PO daily 08/27/2017 08/31/2017 Inactive clopidogrel 75 mg tablet RxNorm: 860548 1 Tablet(s) PO daily 08/24/2017 06/09/2018 Inactive atorvastatin 40 mg tablet RxNorm: 768990 1 Tablet(s) PO QHS 08/24/2017 02/27/2018 Inactive losartan 25 mg tablet RxNorm: 658987 TAKE ONE TABLET BY MOUTH DAILY 08/22/2017 06/09/2018 Inactive Toujeo SoloStar 300 unit/mL (1.5 mL) subcutaneous insulin pen RxNorm: 0583014 45 Unit(s) daily 08/17/2017 08/20/2017 Inactive mupirocin 2 % topical ointment RxNorm: 266491 1 Application TOP TID to the lesions on chest 08/16/2017 08/25/2017 Inactive Toujeo SoloStar 300 unit/mL (1.5 mL) subcutaneous insulin pen RxNorm: 0359235 40 Unit(s) daily 08/16/2017 08/16/2017 Inactive valacyclovir 1 gram tablet RxNorm: 989518 1 Tablet(s) PO TID 07/26/2017 08/01/2017 Inactive clonazepam 1 mg tablet RxNorm: 413306 1 Tablet(s) PO Q8 as needed 07/03/2017 09/30/2017 Inactive Levaquin 500 mg tablet RxNorm: 965514 1 Tablet(s) PO daily 06/22/2017 06/25/2017 Inactive Levaquin 500 mg tablet RxNorm: 973882 1 Tablet(s) PO daily 06/18/2017 06/21/2017 Inactive losartan 25 mg tablet RxNorm: 273240 1 Tablet(s) PO daily 06/18/2017 08/16/2017 Inactive nystatin 100,000 unit/mL oral suspension RxNorm: 605821 5 Milliliter(s) PO QID Swish et swallow 06/18/2017 06/17/2017 Inactive nystatin 100,000 unit/mL oral suspension RxNorm: 974264 5 Milliliter(s) PO QID Swish et swallow 06/18/2017 06/27/2017 Inactive Cipro 500 mg tablet RxNorm: 437461 1 Tablet(s) PO BID 06/12/2017 06/18/2017 Inactive Cipro 500 mg tablet RxNorm: 292966 1 Tablet(s) PO BID 06/12/2017 06/11/2017 Inactive Toujeo SoloStar 300 unit/mL (1.5 mL) subcutaneous insulin pen RxNorm: 9927405 INJECT 10 UNITS UNDER THE SKIN DAILY 06/12/2017 08/15/2017 Inactive Keflex 500 mg capsule RxNorm: 733627 1 Capsule(s) PO TID 06/07/2017 06/13/2017 Inactive doxycycline hyclate 100 mg capsule RxNorm: 7094558 1 Capsule(s) PO BID 05/17/2017 05/21/2017 Inactive doxycycline hyclate 100 mg capsule RxNorm: 8693805 1 Capsule(s) PO BID 05/11/2017 05/16/2017 Inactive losartan 25 mg tablet RxNorm: 909146 1 Tablet(s) PO daily 03/01/2017 06/17/2017 Inactive atorvastatin 40 mg tablet RxNorm: 795438 1 Tablet(s) PO daily 03/01/2017 08/23/2017 Inactive clopidogrel 75 mg tablet RxNorm: 668758 1 Tablet(s) PO daily 03/01/2017 08/23/2017 Inactive Flonase Allergy Relief 50 mcg/actuation nasal spray,suspension RxNorm: 6501562 2 [place] NASAL daily 02/16/2017 02/25/2017 Inactive Augmentin 875 mg-125 mg tablet RxNorm: 610320 1 Tablet(s) PO BID 02/16/2017 02/22/2017 Inactive GET PROBIOTIC TO TAKE WHILE ON ABX Tamiflu 75 mg capsule RxNorm: 031883 1 Capsule(s) PO BID 02/16/2017 02/20/2017 Inactive ceftriaxone 500 mg solution for injection RxNorm: 5090235 1 Milliliter(s) Inj 02/16/2017 02/16/2017 Inactive Kenalog 40 mg/mL suspension for injection RxNorm: 8368060 1 Milliliter(s) Inj 02/16/2017 02/16/2017 Inactive Toujeo SoloStar 300 unit/mL (1.5 mL) subcutaneous insulin pen RxNorm: 6701620 25 Unit(s) SQ QAM 02/12/2017 06/10/2017 Inactive Toujeo SoloStar 300 unit/mL (1.5 mL) subcutaneous insulin pen RxNorm: 8576664 10 Unit(s) SQ QAM 02/05/2017 02/11/2017 Inactive lisinopril 10 mg tablet RxNorm: 093625 1 Tablet(s) PO daily 02/01/2017 02/28/2017 Inactive atorvastatin 40 mg tablet RxNorm: 372983 1 Tablet(s) PO daily 02/01/2017 02/28/2017 Inactive doxycycline hyclate 100 mg capsule RxNorm: 1548156 1 Capsule(s) PO BID 02/01/2017 02/10/2017 Inactive clonazepam 1 mg tablet RxNorm: 135633 1 Tablet(s) PO Q8 as needed 10/09/2016 01/05/2017 Inactive ceftriaxone 1 gram solution for injection RxNorm: 4166231 Inj 10/06/2016 10/06/2016 Inactive cyclobenzaprine 10 mg tablet RxNorm: 823935 1/2-1 Tablet(s) PO TID PRN 07/18/2016 01/28/2017 Inactive clonazepam 1 mg tablet RxNorm: 503335 1 Tablet(s) PO Q8 as needed 05/31/2016 05/29/2016 Inactive clonazepam 1 mg tablet RxNorm: 032905 1 Tablet(s) PO Q8 as needed 05/31/2016 08/28/2016 Inactive Toujeo SoloStar 300 unit/mL (1.5 mL) subcutaneous insulin pen RxNorm: 4625037 10 Unit(s) SQ daily 05/23/2016 01/28/2017 Inactive Crestor 10 mg tablet RxNorm: 632169 1 Tablet(s) PO QHS 05/19/2016 01/28/2017 Inactive Crestor 10 mg tablet RxNorm: 846590 1 Tablet(s) PO QHS 05/19/2016 05/18/2016 Inactive clonazepam 1 mg tablet RxNorm: 256166 1 Tablet(s) PO Q8 as needed 04/25/2016 05/30/2016 Inactive prednisone 20 mg tablet RxNorm: 486447 3 Tablet(s) PO daily 02/11/2016 02/10/2016 Inactive prednisone 20 mg tablet RxNorm: 535429 3 Tablet(s) PO daily 02/11/2016 05/14/2016 Inactive Kenalog 40 mg/mL suspension for injection RxNorm: 7523743 Milliliter(s) Inj 01/20/2016 01/20/2016 Inactive multivitamin tablet RxNorm: 1 Tablet(s) PO daily No Start Date Active aspirin 81 mg tablet,delayed release RxNorm: 279754 1 Tablet(s) PO daily No Start Date Active Brilinta 90 mg tablet RxNorm: 5700376 1 Tablet(s) PO BID No Start Date Active pantoprazole 40 mg tablet,delayed release RxNorm: 956400 1 Tablet(s) PO daily No Start Date Active isosorbide mononitrate ER 30 mg tablet,extended release 24 hr RxNorm: 830504 1 Tablet(s) PO daily No Start Date Active acetaminophen 500 mg tablet RxNorm: 908235 1-2 Tablet(s) PO as needed No Start Date Active clopidogrel 75 mg tablet RxNorm: 153227 1 Tablet(s) PO daily No Start Date 02/28/2017 Inactive Novolog Flexpen U-100 Insulin aspart 100 unit/mL subcutaneous RxNorm: 1056042 5 units with breakfast lunch and 10 supper Unit(s) SQ No Start Date 06/17/2018 Inactive clonazepam 1 mg tablet RxNorm: 635372 1 Tablet(s) PO QHS No Start Date 04/24/2016 Inactive Coreg 6.25 mg tablet RxNorm: 522864 1 Tablet(s) PO BID No Start Date 09/29/2018 Inactive acyclovir 400 mg tablet RxNorm: 539699 2 Tablet(s) PO 5x daily No Start Date 02/28/2017 Inactive Lyrica 50 mg capsule RxNorm: 206903 Capsule(s) PO BID No Start Date 06/09/2018 Inactive Vraylar 3 mg capsule RxNorm: 0698369 1 Capsule(s) PO daily No Start Date 03/12/2018 Inactive valsartan 80 mg tablet RxNorm: 032354 1 Tablet(s) PO daily No Start Date 10/22/2018 Inactive Medication Administered Medication Codes Instructions Start Date Status ketorolac 60 mg/2 mL intramuscular solution RxNorm: 9917307 Milliliter 10/21/2018 No longer Active Kenalog 40 mg/mL suspension for injection RxNorm: 8406480 1.5Milliliter 09/30/2018 No longer Active Kenalog 40 mg/mL suspension for injection RxNorm: 0256188 Milliliter 09/11/2018 No longer Active Kenalog 40 mg/mL suspension for injection RxNorm: 0299690 Milliliter 06/28/2018 No longer Active ketorolac 30 mg/mL injection solution RxNorm: 446209 2Milliliter 05/02/2018 No longer Active ceftriaxone 500 mg solution for injection RxNorm: 5147487 1Milliliter 02/16/2017 No longer Active Kenalog 40 mg/mL suspension for injection RxNorm: 1757523 1Milliliter 02/16/2017 No longer Active ceftriaxone 1 gram solution for injection RxNorm: 5051273 10/06/2016 No longer Active Kenalog 40 mg/mL suspension for injection RxNorm: 0302521 Milliliter 01/20/2016 No longer Active Immunizations Vaccine Codes Date Status Influenza CVX: 141 07/22/2018 completed Influenza CVX: 141 08/16/2017 completed Assessments Condition Codes Effective Dates Palpitations ICD-10: R00.2 ICD-9: 785.1 04/24/2019 Essential (primary) hypertension ICD-10: I10 ICD-9: 401.1 04/21/2019 Orthostatic hypotension ICD-10: I95.1 ICD-9: 458.0 04/18/2019 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-10: I95.2 ICD-9: 458.8 04/14/2019 Anorexia ICD-10: R63.0 ICD-9: 783.0 04/08/2019 Dizziness and giddiness ICD-10: R42 ICD-9: 780.4 04/08/2019 Other malaise ICD-10: R53.81 ICD-9: 780.79 04/08/2019 Other fatigue ICD-10: R53.83 ICD-9: 780.79 04/08/2019 Weakness ICD-10: R53.1 ICD-9: 780.79 04/08/2019 Pain in left finger(s) ICD-10: M79.645 ICD-9: 729.5 04/03/2019 Pain in left hand ICD-10: M79.642 ICD-9: 729.5 04/03/2019 Headache ICD-10: R51 ICD-9: 784.0 04/03/2019 Nasal congestion ICD-10: R09.81 ICD-9: 478.19 04/03/2019 Contusion of left hand, initial encounter ICD-10: S60.222A ICD-9: 923.20 04/03/2019 Atherosclerotic heart disease of [place] coronary artery without angina pectoris ICD-10: I25.10 [...] episode, moderate ICD-10: F32.1 ICD-9: 296.22 04/29/2018 Gastro-esophageal reflux disease without esophagitis ICD-10: K21.9 ICD-9: 530.81 02/13/2018 Pain in left shoulder ICD-10: M25.512 [...] For Visit Effective Dates Notes chest pain/pressure 04/24/2019 Hospital Follow Up 04/14/2019 fatigue 04/08/2019 hand pain 04/03/2019 tinnitus 03/07/2019 blood pressure [...] Item Item Code Result Date Culture Sputum 637832 LOWER RESPIRATORY TRACT CULTURE SEE NOTES 11/14/2018 Culture Sputum 095824 LOWER RESPIRATORY TRACT CULTURE SEE NOTES 10/16/2018 LIPID GRP [id number] CHOLESTEROL TNP:Duplicate Order 09/10/2018 LIPID GRP [id number] Triglyceride TNP:Duplicate Order 09/10/2018 LIPID GRP 8971323 HDL CHOLESTEROL TNP:Duplicate Order 09/10/2018 LIPID GRP [id number] Chol/HDL Ratio TNP:Duplicate Order 09/10/2018 LIPID GRP 0045022 LDL Cholesterol TNP:Duplicate Order 09/10/2018 A1C HPLC 7171526 Hgb A1c 52872-4 TNP:Duplicate Order 09/10/2018 C Diff An [id number] GDH TNP:Lab Request 06/22/2018 C Diff An [id number] Toxin A/B TNP:Lab Request 06/22/2018 C Diff An [id number] C Diff Analyzer TNP:Lab Request 06/22/2018 C Diff An [id number] IC OK? TNP:Lab Request 06/22/2018 CBC [id number] WBC 6.4 10e9/L 05/02/2018 CBC 7505949 RBC 5.60 10e12/L 05/02/2018 CBC 7452928 HEMOGLOBIN 17.0 g/dL 05/02/2018 CBC 2064114 HEMATOCRIT 48.0 % 05/02/2018 CBC 8503317 MCV 85.7 fL 05/02/2018 CBC 3374464 MCH 30.4 pg 05/02/2018 CBC 8619076 MCHC 35.4 g/dL 05/02/2018 CBC 1675631 PLATELET COUNT 166 10e9/L 05/02/2018 CBC 8161466 Mean Plt Volume 11.6 fL 05/02/2018 CBC 5320833 Neut Auto 48.6 % 05/02/2018 CBC 6544090 Lymph Auto 41.7 % 05/02/2018 CBC 6425753 [place] Auto 8.1 % 05/02/2018 CBC 1714826 RDW 13.1 % 05/02/2018 CBC 7799400 Eos Auto 1.1 % 05/02/2018 CBC 5521208 Baso Auto 0.5 % 05/02/2018 CBC 4337889 Neutrophil Abs 3.11 10e9/L 05/02/2018 CBC 5559804 Lymphocyte Abs 2.67 10e9/L 05/02/2018 CBC 7595293 Monocyte Abs 0.52 10e9/L 05/02/2018 CBC 2276699 Eosinophil Abs 0.07 10e9/L 05/02/2018 CBC 5417090 RDW-SD 40.0 fL 05/02/2018 CBC 2234006 Basophil Abs 0.03 10e9/L 05/02/2018 CHEM 14 9271805 AST 17 U/L 05/02/2018 CHEM 14 5652451 ALT 17 U/L 05/02/2018 CHEM 14 6882979 BUN 17 mg/dL 05/02/2018 CHEM 14 6366805 ALBUMIN 4.0 g/dL 05/02/2018 CHEM 14 8814608 CHLORIDE 97 mmol/L 05/02/2018 CHEM 14 7032313 Bili Total 0.9 mg/dL 05/02/2018 CHEM 14 6645751 ALK PHOS 67 U/L 05/02/2018 CHEM 14 1022922 SODIUM 135 mmol/L 05/02/2018 CHEM 14 7009185 CREATININE 1.18 mg/dL 05/02/2018 CHEM 14 5967814 CALCIUM 9.4 mg/dL 05/02/2018 CHEM 14 7461754 POTASSIUM 4.4 mmol/L 05/02/2018 CHEM 14 3979906 TOTAL PROTEIN 6.9 g/dL 05/02/2018 CHEM 14 7973221 GLUCOSE 316 mg/dL 05/02/2018 CHEM 14 6542991 Bicarbonate 29 mmol/L 05/02/2018 CHEM 14 6866198 AGAP 9 mmol/L 05/02/2018 MEAN GLUC 8277779 Calc Mean Gluc 283 mg/dL 05/02/2018 A1C HPLC 1252144 Hgb A1c 99815-0 11.5 % 05/02/2018 GFR CALC 7636184 GFR Non Afr Amr >60 mL/min 05/02/2018 GFR CALC 9628072 GFR Afr Amr >60 mL/min 05/02/2018 [facility] Gold [id number] [facility] Gold Complete 02/28/2018 GFR CALC 5586642 GFR Non Afr Amr >60 mL/min 02/28/2018 GFR CALC 3084923 GFR Afr Amr >60 mL/min 02/28/2018 UA W/CII 2618126 UA Urine Appear Normal 02/28/2018 UA W/CII 3352643 UA Protein 1+ 02/28/2018 UA W/CII 4289944 UA Hemoglobin Negative 02/28/2018 UA W/CII 1546142 UA Glucose 4+ 02/28/2018 UA W/CII 2375294 UA Ketones Trace 02/28/2018 UA W/CII 9753617 UA pH 5.5 02/28/2018 UA W/CII 3727437 U Spec [place] 1.015 02/28/2018 UA W/CII 0960434 UA Bilirubin Negative 02/28/2018 UA W/CII 5345973 UA Nitrite NEG 02/28/2018 UA W/CII 6476670 UA Leuk Esteras Negative 02/28/2018 MICR [id number] UA WBC/hpf 1 02/28/2018 MICR [id number] UA RBC hpf 2 02/28/2018 MICR 1059745 UA WBC auto 3.8 /uL 02/28/2018 MICR [id number] UA RBC auto 12.2 /uL 02/28/2018 MICR 3970625 UA SQ EPI auto 2.3 /uL 02/28/2018 MICR 3772778 UA H Cast auto 0.10 /uL 02/28/2018 CBC 4223642 WBC 6.4 10e9/L 02/28/2018 CBC 8229466 RBC 5.51 10e12/L 02/28/2018 CBC [id number] HEMOGLOBIN 16.7 g/dL 02/28/2018 CBC [id number] HEMATOCRIT 46.9 % 02/28/2018 CBC [id number] MCV 85.1 fL 02/28/2018 CBC 1131248 MCH 30.3 pg 02/28/2018 CBC 6075442 MCHC 35.6 g/dL 02/28/2018 CBC 1183135 PLATELET COUNT 173 10e9/L 02/28/2018 CBC 5335766 Mean Plt Volume 11.6 fL 02/28/2018 CBC 3326429 Neut Auto 51.8 % 02/28/2018 CBC 1842615 Lymph Auto 39.9 % 02/28/2018 CBC 8478950 [place] Auto 7.3 % 02/28/2018 CBC 5521785 RDW 13.3 % 02/28/2018 CBC 8863883 Eos Auto 0.8 % 02/28/2018 CBC 9355293 Baso Auto 0.2 % 02/28/2018 CBC 9308991 Neutrophil Abs 3.32 10e9/L 02/28/2018 CBC 3947052 Lymphocyte Abs 2.55 10e9/L 02/28/2018 CBC 1456723 Monocyte Abs 0.47 10e9/L 02/28/2018 CBC 3635732 Eosinophil Abs 0.05 10e9/L 02/28/2018 CBC 5094734 RDW-SD 40.8 fL 02/28/2018 CBC 2663158 Basophil Abs 0.01 10e9/L 02/28/2018 CHEM 14 4931254 AST 17 U/L 02/28/2018 CHEM 14 4314570 ALT 17 U/L 02/28/2018 CHEM 14 6852390 BUN 20 mg/dL 02/28/2018 CHEM 14 8215662 ALBUMIN 4.1 g/dL 02/28/2018 CHEM 14 4713015 CHLORIDE 97 mmol/L 02/28/2018 CHEM 14 6531010 Bili Total 1.3 mg/dL 02/28/2018 CHEM 14 6416246 ALK PHOS 78 U/L 02/28/2018 CHEM 14 5514254 SODIUM 135 mmol/L 02/28/2018 CHEM 14 7130432 CREATININE 1.09 mg/dL 02/28/2018 CHEM 14 1856188 CALCIUM 9.6 mg/dL 02/28/2018 CHEM 14 1701174 POTASSIUM 3.8 mmol/L 02/28/2018 CHEM 14 2302689 TOTAL PROTEIN 7.3 g/dL 02/28/2018 CHEM 14 4161968 GLUCOSE 349 mg/dL 02/28/2018 CHEM 14 2650816 Bicarbonate 29 mmol/L 02/28/2018 CHEM 14 2505805 AGAP 9 mmol/L 02/28/2018 [place] Spotted Fever Igg/Igm 285634 FEI MT SPOTTED FEVER IGM EIA . 09/05/2017 [place] Spotted Fever Igg/Igm 694969 RMSF, IGM 0.17 index 09/05/2017 [place] Spotted Fever Igg/Igm 299252 FEI MT SPOTTED FEVER IGG EIA FLEX . 09/05/2017 [place] Spotted Fever Igg/Igm 854260 RMSF, IGG SCREEN-FLEX Positive 09/05/2017 Fei Mtn Spot'D Fev Igg 773955 RMSF, IGG- TITER IFA <1:64 09/05/2017 Ehrlichia Chaffeensis Antibody Igm [id number] EHRLICHIA CHAFFEENSIS IGM < 1:16 09/03/2017 Ehrlichia Chaffeensis Antibody Igg [id number] EHRLICHIA CHAFFEENSIS IGG <1:64 09/03/2017 Lymes Disease Total Antibodies With Western Blot Reflex B. BURGDORFERI, IGG/IGM 0.223 08/30/2017 [place]ym[place] Disease Total Antibodies With Western Blot Reflex 08/30/2017 C-Reactive Protein Qnt Crqnt CRP 0.00 mg/dl 08/27/2017 Sed Rate Ord21 ESR 8 mm/hr 08/27/2017 Comp Metabolic Nsi419 NA 135 mEq/L 08/16/2017 Comp Metabolic Mrp629 K 4.1 mEq/L 08/16/2017 Comp Metabolic Khr251 CL 98 mEq/L 08/16/2017 Comp Metabolic Ltr249 CO2 28.0 mEq/L 08/16/2017 Comp Metabolic Tsk791 ANION GAP 13 08/16/2017 Comp Metabolic Luh275 GLUCOSE 299 mg/dL 08/16/2017 Comp Metabolic Fth738 Creat 0.9 mg/dL 08/16/2017 Comp Metabolic Yrb879 eGFR 90 ml/min/1.73m2 08/16/2017 Comp Metabolic Sgr812 BUN 20 mg/dL 08/16/2017 Comp Metabolic Ygz061 B/C Ratio 21.5 Ratio 08/16/2017 Comp Metabolic Yry979 CALCIUM 9.2 mg/dL 08/16/2017 Comp Metabolic Yzr854 ALK PHOS 84 U/L 08/16/2017 Comp Metabolic Ngj858 AST(SGOT) 19 U/L 08/16/2017 Comp Metabolic Agz804 ALT(SGPT) 24 U/L 08/16/2017 Comp Metabolic Ryq586 BILI T 1.1 mg/dL 08/16/2017 Comp Metabolic Wat508 ALBUMIN 4.2 g/dL 08/16/2017 Comp Metabolic Thf565 TPRO 7.2 g/dL 08/16/2017 Comp Metabolic Eqn151 GLOB 3.0 g/dL 08/16/2017 Comp Metabolic Aaw264 A/G Ratio 1.4 Ratio 08/16/2017 Comp Metabolic Txw377 Osmo 284 mOsmo 08/16/2017 %Hba1C Kvg725 % HbA1c 97162- 6 12.5 % 08/16/2017 %Hba1C Nqo795 Gluc Ave 312 mg/dL 08/16/2017 Urine Culture Ucult Preliminary NO Growth Day 1 06/23/2017 Urine Culture Ucult Complete NO Growth Day 2 06/23/2017 C RAP A SC [id number] Strep A Negative 06/08/2017 %Hba1C Mrt596 % HbA1c 94513- 6 9.5 % 05/04/2017 %Hba1C Whz709 Gluc Ave 226 mg/dL 05/04/2017 Tsh Ord6 [...] 31.7 pg 05/04/2017 Cbc With Differential Ord2 [place]% 8.5 % 05/04/2017 Cbc With Differential Ord2 [...] 2.48 K/ul 05/04/2017 Cbc With Differential Ord2 [place] ABS# 0.5 K/ul 05/04/2017 Cbc With Differential Ord2 Eos ABS# 0.1 K/ul 05/04/2017 Cbc With Differential Ord2 Baso ABS# 0.0 K/ul 05/04/2017 Comp Metabolic Wpv401 NA 135 mEq/L 05/04/2017 Comp Metabolic Jxf252 K 4.2 mEq/L 05/04/2017 Comp Metabolic Jsq355 CL 99 mEq/L 05/04/2017 Comp Metabolic Buu383 CO2 26.0 mEq/L 05/04/2017 Comp Metabolic Jcx679 ANION GAP 14 05/04/2017 Comp Metabolic Bxg347 GLUCOSE 277 mg/dL 05/04/2017 Comp Metabolic Ite875 Creat 0.9 mg/dL 05/04/2017 Comp Metabolic Jyi339 eGFR 96 ml/min/1.73m2 05/04/2017 Comp Metabolic Tju188 BUN 23 mg/dL 05/04/2017 Comp Metabolic Est505 B/C Ratio 26.1 Ratio 05/04/2017 Comp Metabolic Kdg900 CALCIUM 8.9 mg/dL 05/04/2017 Comp Metabolic Uea646 ALK PHOS 81 U/L 05/04/2017 Comp Metabolic Aob176 AST(SGOT) 21 U/L 05/04/2017 Comp Metabolic Dql427 ALT(SGPT) 27 U/L 05/04/2017 Comp Metabolic Zjq506 BILI T 1.2 mg/dL 05/04/2017 Comp Metabolic Oll994 ALBUMIN 4.0 g/dL 05/04/2017 Comp Metabolic Xpf311 TPRO 6.7 g/dL 05/04/2017 Comp Metabolic Lmp208 GLOB 2.7 g/dL 05/04/2017 Comp Metabolic Spv856 A/G Ratio 1.5 Ratio 05/04/2017 Comp Metabolic Kbh938 Osmo 284 mOsmo 05/04/2017 C A/B FLU [id number] Influenza A Scr Negative 02/16/2017 C A/B FLU 0827446 Influenza B Scr Positive 02/16/2017 Cbc With [...] 30.3 pg 05/23/2016 Cbc With Differential Ord2 [place]% 8.8 % 05/23/2016 Cbc With Differential Ord2 [...] 2.07 K/ul 05/23/2016 Cbc With Differential Ord2 [place] ABS# 0.5 K/ul 05/23/2016 Cbc With Differential Ord2 Eos ABS# 0.1 K/ul 05/23/2016 Cbc With Differential Ord2 Baso ABS# 0.0 K/ul 05/23/2016 Lipid Ord30 CHOL 397 mg/dL 05/17/2016 Lipid Ord30 HDL 48.0 mg/dl 05/17/2016 Lipid Ord30 TRIG 578 mg/dL 05/17/2016 Lipid Ord30 LDL Unable to calculate Due to elevated triglycerides mg/dL 05/17/2016 Lipid Ord30 C/HDL 8.3 Ratio 05/17/2016 %Hba1C Xkx418 % HbA1c 05444- 6 12.4 % 05/16/2016 %Hba1C Bkp013 Gluc Ave 309 mg/dL 05/16/2016 Cbc With [...] 30.4 pg 05/15/2016 Cbc With Differential Ord2 [place]% 7.8 % 05/15/2016 Cbc With Differential Ord2 [...] 2.04 K/ul 05/15/2016 Cbc With Differential Ord2 [place] ABS# 0.5 K/ul 05/15/2016 Cbc With Differential Ord2 Eos ABS# 0.1 K/ul 05/15/2016 Cbc With Differential Ord2 Baso ABS# 0.0 K/ul 05/15/2016 Tsh Ord6 hTSH II 1.70 uIU/mL 05/15/2016 Comp Metabolic Pmq596 NA 135 mEq/L 05/15/2016 Comp Metabolic Lws617 K 3.9 mEq/L 05/15/2016 Comp Metabolic Qqr335 CL 96 mEq/L 05/15/2016 Comp Metabolic Txo036 CO2 27.0 mEq/L 05/15/2016 Comp Metabolic Ezg892 ANION GAP 16 05/15/2016 Comp Metabolic Jyw137 GLUCOSE 183 mg/dL 05/15/2016 Comp Metabolic Lyr949 Creat 1.1 mg/dL 05/15/2016 Comp Metabolic Lgs529 eGFR 71 ml/min/1.73m2 05/15/2016 Comp Metabolic Zox639 BUN 17 mg/dL 05/15/2016 Comp Metabolic Ibh206 B/C Ratio 14.9 Ratio 05/15/2016 Comp Metabolic Axl760 CALCIUM 9.6 mg/dL 05/15/2016 Comp Metabolic Yui312 ALK PHOS 100 U/L 05/15/2016 Comp Metabolic Nyy907 AST(SGOT) 20 U/L 05/15/2016 Comp Metabolic Vwz176 ALT(SGPT) 20 U/L 05/15/2016 Comp Metabolic Jsm843 BILI T 1.3 mg/dL 05/15/2016 Comp Metabolic Qua214 ALBUMIN 4.6 g/dL 05/15/2016 Comp Metabolic Oht323 TPRO 8.1 g/dL 05/15/2016 Comp Metabolic Iee595 GLOB 3.5 g/dL 05/15/2016 Comp Metabolic Zql427 A/G Ratio 1.3 Ratio 05/15/2016 Comp Metabolic Ppi357 Osmo 276 mOsmo 05/15/2016 Review of Systems System Result Effective Dates Constitutional recent illness 04/14/2019 Constitutional anorexia 04/14/2019 Constitutional diaphoresis 04/14/2019 Constitutional fatigue 04/14/2019 Constitutional malaise 04/14/2019 Eyes No eye discharge 04/14/2019 Eyes No eye erythema 04/14/2019 Ears/Nose/Throat/Neck dizziness 04/14/2019 Ears/Nose/Throat/Neck headache 04/14/2019 Ears/Nose/Throat/Neck nasal allergies 04/14/2019 Cardiovascular No chest pain/pressure 04/14/2019 Cardiovascular No dyspnea 04/14/2019 Cardiovascular No edema 04/14/2019 Cardiovascular exercise intolerance 04/14/2019 Cardiovascular fatigue 04/14/2019 Cardiovascular near-syncope/dizziness 04/14/2019 Cardiovascular No palpitations 04/14/2019 Respiratory No cough 04/14/2019 Respiratory dyspnea on exertion 04/14/2019 Respiratory No dyspnea 04/14/2019 Gastrointestinal No abdominal pain 04/14/2019 Gastrointestinal No constipation 04/14/2019 Gastrointestinal No diarrhea 04/14/2019 Genitourinary/Nephrology No dysuria 04/14/2019 Neurologic No alteration of consciousness 04/14/2019 Neurologic No mental status change 04/14/2019 Neurologic tinnitus 04/14/2019 Eyes No eye discharge 04/08/2019 Eyes No eye erythema 04/08/2019 Ears/Nose/Throat/Neck dizziness 04/08/2019 Ears/Nose/Throat/Neck headache 04/08/2019 Ears/Nose/Throat/Neck nasal allergies 04/08/2019 Cardiovascular No chest pain/pressure 04/08/2019 Cardiovascular No dyspnea 04/08/2019 Cardiovascular No edema 04/08/2019 Respiratory No cough 04/08/2019 Gastrointestinal No abdominal pain 04/08/2019 Gastrointestinal No constipation 04/08/2019 Gastrointestinal No diarrhea 04/08/2019 Genitourinary/Nephrology No dysuria 04/08/2019 Neurologic No alteration of consciousness 04/08/2019 Neurologic tinnitus 04/08/2019 Constitutional No recent illness 04/08/2019 Constitutional anorexia 04/08/2019 Constitutional diaphoresis 04/08/2019 Constitutional fatigue 04/08/2019 Constitutional malaise 04/08/2019 Cardiovascular fatigue 04/08/2019 Cardiovascular exercise intolerance 04/08/2019 Cardiovascular near-syncope/dizziness 04/08/2019 Cardiovascular palpitations 04/08/2019 Respiratory dyspnea on exertion 04/08/2019 Respiratory No dyspnea 04/08/2019 Neurologic No mental status change 04/08/2019 Constitutional recent illness 04/03/2019 Constitutional No fatigue [...] 1994 Constitutional general appearance Overall: well developed 04/14/2019 None Full Exam - General 1995 Constitutional general appearance Overall: in no acute distress 04/14/2019 None Full Exam - General 1994 Constitutional general appearance Overall: well nourished 04/14/2019 None Full Exam - General 1994 Respiratory auscultation Overall: breath sounds clear bilaterally 04/14/2019 None Full Exam - General 1994 Respiratory respiratory effort/rhythm Overall: no retractions 04/14/2019 None Full Exam - General 1994 Respiratory respiratory effort/rhythm Overall: normal rate 04/14/2019 None Full Exam - General 1994 Cardiovascular auscultation of heart Overall: normal heart sounds 04/14/2019 None Full Exam - General 1994 Cardiovascular auscultation of heart Rate: tachycardia 04/14/2019 None Full Exam - General 1994 Musculoskeletal gait and station Overall: normal gait 04/14/2019 None Full Exam - General 1994 Musculoskeletal gait and station Overall: normal station 04/14/2019 None Full Exam - General 1994 Musculoskeletal head and neck Overall: head atraumatic 04/14/2019 None Full Exam - General 1994 Neurologic cranial nerves Overall: crainial nerves 2 - 12 grossly intact 04/14/2019 None Full Exam - General 1994 Psychiatric orientation/consciousness Overall: oriented to person, place and time 04/14/2019 None Full Exam - General 1994 Psychiatric mood and affect Overall: normal mood and affect 04/14/2019 None Full Exam - General 1994 Constitutional general appearance Overall: well developed 04/08/2019 None Full Exam - General 1994 Constitutional general appearance Overall: in no acute distress 04/08/2019 None Full Exam - General 1994 Constitutional general appearance Overall: well nourished 04/08/2019 None Full Exam - General 1994 Eyes conjunctiva/eyelids Overall: conjunctiva clear 04/08/2019 None Full Exam - General 1994 Eyes conjunctiva/eyelids Overall: cornea clear 04/08/2019 None Full Exam - General 1994 Eyes conjunctiva/eyelids Overall: eyelids normal 04/08/2019 None Full Exam - General 1995 Ears/Nose/Throat lips/teeth/gingiva Overall: benign lips 04/08/2019 None Full Exam - General 1994 Ears/Nose/Throat oral cavity/pharynx/larynx Overall: oral mucosa clear 04/08/2019 None Full Exam - General 1994 Respiratory auscultation Overall: breath sounds clear bilaterally 04/08/2019 None Full Exam - General 1994 Respiratory respiratory effort/rhythm Overall: no retractions 04/08/2019 None Full Exam - General 1994 Respiratory respiratory effort/rhythm Overall: normal rate 04/08/2019 None Full Exam - General 1994 Cardiovascular auscultation of heart Overall: normal heart sounds 04/08/2019 None Full Exam - General 1994 Cardiovascular auscultation of heart Rate: tachycardia 04/08/2019 None Full Exam - General 1994 Abdomen abdominal exam Overall: normal bowel sounds 04/08/2019 None Full Exam - General 1994 Musculoskeletal gait and station Overall: normal gait 04/08/2019 None Full Exam - General 1994 Musculoskeletal gait and station Overall: normal station 04/08/2019 None Full Exam - General 1994 Musculoskeletal head and neck Overall: head atraumatic 04/08/2019 None Full Exam - General 1994 Neurologic cranial nerves Overall: crainial nerves 2 - 12 grossly intact 04/08/2019 None Full Exam - General 1994 Psychiatric orientation/consciousness Overall: oriented to person, place and time 04/08/2019 None Full Exam - General 1994 Psychiatric mood and affect Overall: normal mood and affect 04/08/2019 None Full Exam - General 1994 Constitutional [...] None Full Exam - General 1995 Eyes conjunctiva/eyelids Overall: conjunctiva clear 01/13/2019 None Full Exam - General 1995 Eyes conjunctiva/eyelids Overall: cornea clear 01/13/2019 None [...] None Full Exam - General 1995 Eyes conjunctiva/eyelids Overall: conjunctiva clear 12/31/2018 None Full Exam - General 1994 Eyes conjunctiva/eyelids Overall: cornea clear 12/31/2018 None Full Exam - General 1994 Eyes conjunctiva/eyelids Overall: eyelids normal 12/31/2018 None Full Exam - General 1995 Ears/Nose/Throat lips/teeth/gingiva Overall: benign lips 12/31/2018 None [...] None Full Exam - General 1995 Eyes conjunctiva/eyelids Overall: conjunctiva clear 05/13/2018 None Full Exam - General 1995 Eyes conjunctiva/eyelids Overall: cornea clear 05/13/2018 None [...] of skin Location: face 05/04/2017 patch left [facility] Full Exam - General 1994 Constitutional general [...] Codes Date URINALYSIS NONAUTO W/O SCOPE CPT-4: 45622 02/17/2019 KETOROLAC TROMETHAMINE INJ CPT-4: J1885 10/21/2018 TRIAMCINOLONE ACET INJ NOS CPT-4: J3301 09/30/2018 THER/PROPH/DIAG INJ SC/IM CPT-4: 55665 09/11/2018 TRIAMCINOLONE ACET INJ NOS CPT-4: J3301 09/11/2018 IMMUNIZATION ADMIN CPT- 4: 11978 07/22/2018 FLU VAC NO PRSV 4 MENA 3 YRS+ CPT-4: 62707 07/22/2018 TRIAMCINOLONE ACET INJ NOS CPT-4: J3301 06/28/2018 KETOROLAC TROMETHAMINE INJ CPT-4: J1885 05/02/2018 FLU VAC NO PRSV 4 MENA 3 YRS+ CPT-4: 11818 08/16/2017 IMMUNIZATION ADMIN CPT- 4: 57714 08/16/2017 URINALYSIS NONAUTO W/O SCOPE CPT-4: 35141 06/21/2017 TRIAMCINOLONE ACET INJ NOS CPT-4: J3301 05/04/2017 THER/PROPH/DIAG INJ SC/IM CPT-4: 04817 05/04/2017 TRIAMCINOLONE ACET INJ NOS CPT-4: J3301 02/16/2017 ROCEPHIN, PER 250 MG CPT- 4: J0696 02/16/2017 ROCEPHIN, PER 250 MG CPT- 4: J0696 10/06/2016 URINALYSIS NONAUTO W/O SCOPE CPT-4: 81513 07/18/2016 TRIAMCINOLONE ACET INJ NOS CPT-4: J3301 01/20/2016 Vital Signs Date Vital 04/24/2019 Blood Pressure 1: 98/60 Code: 8480-6 Heart Rate 1: 200 bpm Height: SpO2: 97% Weight: 04/21/2019 Blood Pressure 1: 110/78 Code: 8480-6 Heart Rate 1: 98 bpm SpO2: 100% 04/18/2019 Blood Pressure 1: 98/78 Code: 8480-6 Heart Rate 1: 95 bpm SpO2: 98% 04/14/2019 Blood Pressure 1: 104/ Code: 8480-6 BMI: 32.1 Code: 91544-5 Heart Rate 1: 93 bpm Height: 6'2" SpO2: 93% Weight: 250 lbs 04/08/2019 Blood Pressure 1: 92/60 Code: 8480-6 BMI: 33.0 Code: 71049- 5 Heart Rate 1: 114 bpm Height: 6'2" SpO2: 98% Weight: 257 lbs 04/03/2019 Blood Pressure 1: 126/70 Code: 8480-6 BMI: 33.0 Code: 98034-7 Heart Rate 1: 100 bpm Height: 6'2" SpO2: 97% Weight: 257 lbs 03/07/2019 Blood Pressure 1: 110/70 Code: 8480-6 BMI: 33.0 Code: 88376-7 Heart Rate 1: 112 bpm Height: 6'2" SpO2: 95% Weight: 257 lbs 02/27/2019 Blood Pressure 1: 110/80 Code: 8480-6 BMI: 33.0 Code: 32487-5 Heart Rate 1: 89 bpm Height: 6'2" SpO2: 95% Weight: 257 lbs 02/17/2019 Blood Pressure 1: 120/80 Code: 8480-6 Blood Pressure 2: 102/80 Code: 8480-6 Heart Rate 1: 89 bpm SpO2: 96% 01/13/2019 Blood Pressure 1: 120/70 Code: 8480-6 BMI: 34.2 Code: 93179-4 Heart Rate 1: 74 bpm Height: 6'2" SpO2: 96% Weight: 266 lbs 12/31/2018 Blood Pressure 1: 122/70 Code: 8480-6 BMI: 34.4 Code: 24407-3 Heart Rate 1: 90 bpm Height: 6'2" SpO2: 97% Temperature: 36.6 (C) / 97.8 (F) Weight: 268 lbs 12/26/2018 Blood Pressure 1: 118/72 Code: 8480-6 BMI: 34.4 Code: 27559-6 Heart Rate 1: 82 bpm Height: 6'2" SpO2: 98% Temperature: 36.6 (C) / 97.9 (F) Weight: 268 lbs 11/18/2018 Blood Pressure 1: 120/84 Code: 8480-6 BMI: 33.9 Code: 18118-9 Heart Rate 1: 77 bpm Height: 6'2" SpO2: 99% Temperature: 36.7 (C) / 98.1 (F) Weight: 264 lbs 11/12/2018 Blood Pressure 1: 138/76 Code: 8480-6 BMI: 33.9 Code: 41998-3 Heart Rate 1: 91 bpm Height: 6'2" SpO2: 99% Weight: 264 lbs 10/30/2018 Blood Pressure 1: 130/72 Code: 8480-6 BMI: 33.3 Code: 11409-0 Heart Rate 1: 83 bpm Height: 6'2" SpO2: 95% Temperature: 36.5 (C) / 97.7 (F) Weight: 259 lbs 10/24/2018 Blood Pressure 1: 130/70 Code: 8480-6 Heart Rate 1: 95 bpm Height: 6'2" SpO2: 96% 10/23/2018 Blood Pressure 1: 100/70 Code: 8480-6 Blood Pressure 2: 102/70 Code: 8480-6 BMI: 33.3 Code: 26036-7 Heart Rate 1: 106 bpm Height: 6'2" SpO2: 98% Weight: 259 lbs 10/21/2018 Blood Pressure 1: 140/90 Code: 8480-6 BMI: 32.9 Code: 69546-9 Heart Rate 1: 96 bpm Height: 6'2" SpO2: 92% Weight: 256 lbs 10/17/2018 Blood Pressure 1: 110/68 Code: 8480-6 BMI: 32.9 Code: 58533-0 Heart Rate 1: 82 bpm Height: 6'2" SpO2: 97% Weight: 256 lbs 10/14/2018 Blood Pressure 1: 124/70 Code: 8480-6 BMI: 33.6 Code: 32070-5 Heart Rate 1: 76 bpm Height: 6'2" SpO2: 99% Temperature: 36.3 (C) / 97.3 (F) Weight: 262 lbs 09/30/2018 Blood Pressure 1: 138/82 Code: 8480-6 BMI: 33.6 Code: 81211-3 Heart Rate 1: 82 bpm Height: 6'2" SpO2: 98% Temperature: 36.3 (C) / 97.3 (F) Weight: 262 lbs 09/09/2018 Blood Pressure 1: 140/80 Code: 8480-6 BMI: 33.0 Code: 74035-4 Heart Rate 1: 97 bpm Height: 6'2" SpO2: 93% Temperature: 36.8 (C) / 98.2 (F) Weight: 257 lbs 07/22/2018 Blood Pressure 1: 120/78 Code: 8480-6 BMI: 31.6 Code: 78607-2 Heart Rate 1: 87 bpm Height: 6'2" SpO2: 98% Weight: 246 lbs 07/16/2018 Blood Pressure 1: 132/74 Code: 8480-6 BMI: 31.2 Code: 69187-5 Heart Rate 1: 90 bpm Height: 6'2" SpO2: 96% Weight: 243 lbs 07/01/2018 Blood Pressure 1: 142/82 Code: 8480-6 BMI: 31.8 Code: 20988-8 Heart Rate 1: 88 bpm Height: 6'2" SpO2: 98% Weight: 248 lbs 06/28/2018 Blood Pressure 1: 132/76 Code: 8480-6 BMI: 31.8 Code: 42171-4 Heart Rate 1: 107 bpm Height: 6'2" SpO2: 98% Temperature: 37.9 (C) / 100.3 (F) Weight: 248 lbs 06/18/2018 Blood Pressure 1: 138/82 Code: 8480-6 BMI: 31.8 Code: 79707-4 Heart Rate 1: 82 bpm Height: 6'2" SpO2: 97% Weight: 248 lbs 06/04/2018 Blood Pressure 1: 128/84 Code: 8480-6 BMI: 33.9 Code: 95632-8 Heart Rate 1: 86 bpm Height: 6'2" SpO2: 95% Weight: 264 lbs 05/13/2018 Blood Pressure 1: 130/80 Code: 8480-6 BMI: 31.1 Code: 79055-8 Heart Rate 1: 100 bpm Height: 6'2" SpO2: 94% Weight: 242 lbs 05/02/2018 Blood Pressure 1: 134/84 Code: 8480-6 BMI: 31.2 Code: 55432-2 Heart Rate 1: 93 bpm Height: 6'2" SpO2: 98% Weight: 243 lbs 04/29/2018 Blood Pressure 1: 142/88 Code: 8480-6 BMI: 31.6 Code: 47130-5 Heart Rate 1: 96 bpm Height: 6'2" SpO2: 96% Temperature: 36.7 (C) / 98.1 (F) Weight: 246 lbs 03/13/2018 Blood Pressure 1: 120/76 Code: 8480-6 BMI: 30.9 Code: 95798-2 Heart Rate 1: 112 bpm Height: 6'2" SpO2: 97% Weight: 241 lbs 03/07/2018 Blood Pressure 1: 108/78 Code: 8480-6 BMI: 30.0 Code: 90655-0 Heart Rate 1: 87 bpm Height: 6'2" SpO2: 98% Weight: 234 lbs 02/28/2018 Blood Pressure 1: 106/74 Code: 8480-6 BMI: 30.0 Code: 35708-0 Heart Rate 1: 101 bpm Height: 6'2" SpO2: 98% Temperature: 36.4 (C) / 97.5 (F) Weight: 234 lbs 02/13/2018 Blood Pressure 1: 110/78 Code: 8480-6 BMI: 30.0 Code: 93550-8 Heart Rate 1: 106 bpm Height: 6'2" SpO2: 98% Weight: 234 lbs 01/29/2018 Blood Pressure 1: 106/68 Code: 8480-6 BMI: 30.0 Code: 80831-3 Heart Rate 1: 108 bpm Height: 6'2" SpO2: 98% Weight: 234 lbs 08/27/2017 Blood Pressure 1: 134/76 Code: 8480-6 Heart Rate 1: 98 bpm Height: SpO2: 97% Weight: 08/16/2017 Blood Pressure 1: 128/80 Code: 8480-6 BMI: 32.0 Code: 01831-9 Heart Rate 1: 94 bpm Height: 6'2" [...] 1: 142/92 Code: 8480-6 BMI: 31.8 Code: 74735-3 Heart Rate 1: 102 bpm Height: 6'2" [...] 1: 122/72 Code: 8480-6 BMI: 31.8 Code: 88633-6 Heart Rate 1: 85 bpm Height: 6'2" SpO2: 96% Temperature: 36.6 (C) / 97.9 (F) Weight: 248 lbs 02/12/2017 Blood Pressure 1: 126/76 Code: 8480-6 BMI: 31.8 Code: 57438-0 Heart Rate 1: 106 bpm Height: 6'2" SpO2: 91% Weight: 248 lbs 02/05/2017 Blood Pressure 1: 146/86 Code: 8480-6 BMI: 31.9 Code: 31695-1 Heart Rate 1: 98 bpm Height: 6'2" SpO2: 87% Temperature: 36.7 (C) / 98.0 (F) Weight: 248 lbs 8 oz 01/29/2017 Blood Pressure 1: 132/84 Code: 8480-6 BMI: 31.8 Code: 84106-1 Heart Rate 1: 83 bpm Height: 6'2" SpO2: 97% Weight: 248 lbs 10/13/2016 Blood Pressure 1: 128/72 Code: 8480-6 Heart Rate 1: 86 bpm SpO2: 94% 10/09/2016 Blood Pressure 1: 128/68 Code: 8480-6 Heart Rate 1: 136 bpm SpO2: 94% Temperature: 36.8 (C) / 98.2 (F) 10/06/2016 Blood Pressure 1: 140/80 Code: 8480-6 BMI: 32.1 Code: 57963-0 Heart Rate 1: 94 bpm Height: 6'2" SpO2: 95% Weight: 250 lbs 07/18/2016 Blood Pressure 1: 128/86 Code: 8480-6 BMI: 32.1 Code: 54424-0 Heart Rate 1: 89 bpm Height: 6'2" SpO2: 96% Weight: 250 lbs 06/22/2016 Blood Pressure 1: 118/70 Code: 8480-6 BMI: 32.1 Code: 71229-9 Heart Rate 1: 70 bpm Height: 6'2" SpO2: 97% Weight: 250 lbs 05/23/2016 Blood Pressure 1: 128/80 Code: 8480-6 BMI: 32.1 Code: 20386-6 Heart Rate 1: 76 bpm Height: 6'2" SpO2: 98% Weight: 250 lbs 05/15/2016 Blood Pressure 1: 110/90 Code: 8480-6 BMI: 31.3 Code: 63487-6 Heart Rate 1: 111 bpm Height: 6'2" SpO2: 97% Temperature: 36.6 (C) / 97.8 (F) Weight: 244 lbs 01/20/2016 Blood Pressure 1: 128/76 Code: 8480-6 BMI: 33.0 Code: 96451-5 Heart Rate 1: 103 bpm Height: 6'2" SpO2: 95% Weight: 257 lbs Functional Status No Functional Status data History of Present Illness Symptom Name Status Result Effective Date Notes Location on the left side of on the chest 04/24/2019 None Quality acute 04/24/2019 None Onset and Resolution worsening 04/24/2019 None Onset of Symptom _ hours ago 04/24/2019 None Pertinent Findings back pain 04/24/2019 None Pertinent Findings Denies dyspnea 04/24/2019 None Pertinent Findings palpitations 04/24/2019 None Pertinent Findings tachycardia 04/24/2019 None Pertinent Findings weakness 04/24/2019 None _ cardiac disease 04/14/2019 -chest pain on exertion and hypotension Quality acute 04/14/2019 None Onset and Resolution ongoing 04/14/2019 None Exacerbating Factors medication 04/14/2019 None Quality constant 04/08/2019 None Onset and Resolution sudden in onset 04/08/2019 None Onset of Symptom 2 days ago 04/08/2019 None Frequency of Episodes hourly 04/08/2019 None Timing of Episodes upon awakening 04/08/2019 None Quality constant 04/08/2019 None Onset and Resolution sudden in onset 04/08/2019 None Onset of Symptom 2 days ago 04/08/2019 None Quality breathlessness 04/08/2019 None Quality constant 04/08/2019 None Quality labored breathing 04/08/2019 None Onset and Resolution sudden in onset 04/08/2019 None Onset of Symptom 2 days ago 04/08/2019 None Pertinent Findings increased work of breathing 04/08/2019 None Pertinent Findings lightheadedness 04/08/2019 None Pertinent Findings nausea 04/08/2019 None Location on the left 04/03/2019 None Onset and Resolution sudden in onset 04/03/2019 None Onset of Symptom 1 days ago 04/03/2019 None Pertinent Findings stiffness 04/03/2019 None Pertinent Findings swelling 04/03/2019 None Pertinent Findings pain with movement 04/03/2019 None Quality sharp pain 04/03/2019 None Quality acute 04/03/2019 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 Severity moderate 04/03/2019 None Location in [...] None Location on the right 10/21/2018 2nd [facility] Quality throbbing 10/21/2018 cramping Onset and Resolution [...] data Encounters Encounter Performer Location Codes Date ([id number]) Miscellaneous no charge Diagnosis: Palpitations[ICD10: R00.2] Melida Ha MD, [facility] CPT-4: 21713 04/24/2019 ([id number]) Miscellaneous no charge Diagnosis: Essential (primary) hypertension[ICD10: I10] Melida Ha MD, [facility] CPT-4: 25646 04/21/2019 ([id number]) Miscellaneous no charge Diagnosis: Orthostatic hypotension[ICD10: I95.1] Melida Ha MD, [facility] CPT-4: 54193 04/18/2019 ([id number]) 71208 EST. PATIENT, LEVEL III Diagnosis: Hypotension due to drugs[ICD10: I95.2] Melida Ha MD, [facility] CPT-4: 96835 04/14/2019 70750 EST. PATIENT, LEVEL IV Diagnosis: Other fatigue[ICD10: R53.83] Diagnosis: Other malaise[ICD10: R53.81] Diagnosis: Anorexia[ICD10: R63.0] Diagnosis: Palpitations[ICD10: R00.2] Diagnosis: Weakness[ICD10: R53.1] Diagnosis: Dizziness and giddiness[ICD10: R42] Madeline Ha MD, [facility] CPT- 4: 37359 04/08/2019 ([id number]) 55615 EST. PATIENT, LEVEL III Diagnosis: Pain in left finger(s)[ICD10: M79.645] Diagnosis: Pain in left hand[ICD10: M79.642] Diagnosis: Contusion of left hand, initial encounter[ICD10: S60.222A] Diagnosis: Nasal congestion[ICD10: R09.81] Diagnosis: Headache[ICD10: R51] Melida Ha MD, [facility] CPT-4: 22490 04/03/2019 ([id number]) 16651 EST. PATIENT, LEVEL III Diagnosis: Essential (primary) hypertension[ICD10: I10] Marcela Ha MD [facility] CPT-4: 67319 03/07/2019 ([id number]) 08072 EST. PATIENT, LEVEL III Diagnosis: Hypotension due to drugs[ICD10: I95.2] Marcela Ha MD [facility] CPT-4: 92344 02/27/2019 ([id number]) 01300 EST. PATIENT, LEVEL III Diagnosis: Hypotension due to drugs[ICD10: I95.2] Diagnosis: Other fatigue[ICD10: R53.83] Marcela Ha MD [facility] CPT-4: 90685 02/17/2019 ([id number]) 08973 EST. 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 PATIENT, LEVEL IV Diagnosis: Type 2 diabetes mellitus with hyperglycemia[ICD10: E11.65] Diagnosis: Epigastric pain[ICD10: R10.13] Diagnosis: Pain in joints of right hand[ICD10: M25.541] Diagnosis: Shortness of breath[ICD10: R06.02] Marcela Ha MD, [facility] CPT- 4: 25522 12/31/2018 47531 EST. PATIENT, LEVEL III Diagnosis: Other chest pain[ICD10: R07.89] Diagnosis: Cough[ICD10: R05] Madeline Ha MD, [facility] CPT-4: 35384 12/26/2018 ([id number]) 49191 EST. PATIENT, LEVEL III Diagnosis: Cough[ICD10: R05] Melida Ha MD, [facility] CPT-4: 85781 11/18/2018 ([id number]) 03420 EST. PATIENT, LEVEL III Diagnosis: Cough[ICD10: R05] Diagnosis: Pneumonia due to other Gram-negative bacteria[ICD10: J15.6] Marcela Ha MD, [facility] CPT-4: 95495 11/12/2018 ([id number]) 14910 EST. PATIENT, LEVEL III Diagnosis: Pneumonia due to other Gram-negative bacteria[ICD10: J15.6] Diagnosis: Cough[ICD10: R05] Melida Ha MD, [facility] CPT-4: 06603 10/30/2018 ([id number]) 66680 EST. PATIENT, LEVEL II Diagnosis: Pain in joints of right hand[ICD10: M25.541] Diagnosis: Trigger finger, right middle finger[ICD10: M65.331] Marcela Ha MD, [facility] CPT-4: 94109 10/24/2018 ([id number]) 71768 EST. PATIENT, LEVEL IV Diagnosis: Essential (primary) hypertension[ICD10: I10] Diagnosis: Type 2 diabetes mellitus with foot ulcer[ICD10: E11.621] Melida Ha MD, [facility] CPT-4: 65246 10/23/2018 ([id number]) 04856 EST. PATIENT, LEVEL III Diagnosis: Cellulitis of right finger[ICD10: L03.011] Diagnosis: Type 2 diabetes mellitus with foot ulcer[ICD10: E11.621] Diagnosis: Pain in right hand[ICD10: M79.641] Melida Ha MD, [facility] CPT- 4: 39460 10/21/2018 56958 EST. PATIENT, LEVEL III Diagnosis: Spontaneous ecchymoses[ICD10: R23.3] Diagnosis: Cellulitis of right lower limb[ICD10: L03.115] Diagnosis: Cellulitis of left lower limb[ICD10: L03.116] Madeline Ha MD, [facility] CPT-4: 87524 10/17/2018 ([id number]) 49324 EST. PATIENT, LEVEL III Diagnosis: Cough[ICD10: R05] Diagnosis: Acute bronchitis, unspecified[ICD10: J20.9] Melida Ha MD, [facility] CPT-4: 09634 10/14/2018 07521 EST. PATIENT, LEVEL III Diagnosis: Acute laryngopharyngitis[ICD10: J06.0] Diagnosis: Cough[ICD10: R05] Madeline Ha MD, [facility] CPT-4: 42078 09/30/2018 ([id number]) 10095 EST. PATIENT, LEVEL III Diagnosis: Acute recurrent maxillary sinusitis[ICD10: J01.01] Diagnosis: Cough[ICD10: R05] Diagnosis: Type 2 diabetes mellitus with hyperglycemia[ICD10: E11.65] Marcela Ha MD, [facility] CPT-4: 06889 09/09/2018 ([id number]) 72682 EST. PATIENT, LEVEL IV Diagnosis: Essential (primary) hypertension[ICD10: I10] Diagnosis: Mixed hyperlipidemia[ICD10: E78.2] Diagnosis: Bipolar disorder, current episode depressed, moderate[ICD10: F31.32] Diagnosis: Type 2 diabetes mellitus with other specified complication[ICD10: E11.69] Melida Ha MD, [facility] CPT-4: 91656 07/22/2018 ([id number]) 11286 EST. PATIENT, LEVEL III Diagnosis: Insomnia due to medical condition[ICD10: G47.01] Marcela Ha MD, [facility] CPT-4: 68729 07/16/2018 ([id number]) Miscellaneous no charge Diagnosis: Cough[ICD10: R05] Madeline Ha MD, [facility] CPT-4: 96026 07/01/2018 [id number] EST. PATIENT, LEVEL III Diagnosis: Cough[ICD10: R05] Diagnosis: Acute laryngopharyngitis[ICD10: J06.0] Diagnosis: Other allergic rhinitis[ICD10: J30.89] Madeline Ha MD, [facility] CPT- 4: 58857 06/28/2018 ([id number]) 94209 EST. PATIENT, LEVEL IV Diagnosis: Type 2 diabetes mellitus with hyperglycemia[ICD10: E11.65] Diagnosis: Essential (primary) hypertension[ICD10: I10] Melida Ha MD, [facility] CPT-4: 48742 06/18/2018 ([id number]) 88676 EST. PATIENT, LEVEL IV Diagnosis: Type 2 diabetes mellitus with hyperglycemia[ICD10: E11.65] Diagnosis: Essential (primary) hypertension[ICD10: I10] Diagnosis: Localized edema[ICD10: R60.0] Melida Ha MD, [facility] CPT-4: 96058 06/04/2018 ([id number]) 21303 EST. PATIENT, LEVEL III Diagnosis: Type 2 diabetes mellitus with hyperglycemia[ICD10: E11.65] Diagnosis: Myalgia[ICD10: M79.1] Diagnosis: Pain in right hip[ICD10: M25.551] Diagnosis: Pain in left hip[ICD10: M25.552] Marcela Ha MD, [facility] CPT- 4: 59426 05/13/2018 ([id number]) 94896 EST. PATIENT, LEVEL III Diagnosis: Myalgia[ICD10: M79.1] Diagnosis: Pain in right hip[ICD10: M25.551] Diagnosis: Pain in left hip[ICD10: M25.552] Macrela Ha MD, [facility] CPT- 4: 81249 05/02/2018 ([id number]) 15693 EST. PATIENT, LEVEL IV Diagnosis: Essential (primary) hypertension[ICD10: I10] Diagnosis: Type 2 diabetes mellitus with hyperglycemia[ICD10: E11.65] Diagnosis: Major depressive disorder, single episode, moderate[ICD10: F32.1] Diagnosis: Myalgia[ICD10: M79.1] Marcela Ha MD, [facility] CPT-4: 08023 04/29/2018 ([id number]) 12945 EST. PATIENT, LEVEL IV Diagnosis: Type 2 diabetes mellitus with hyperglycemia[ICD10: E11.65] Diagnosis: Essential (primary) hypertension[ICD10: I10] Diagnosis: Major depressive disorder, single episode, moderate[ICD10: F32.1] Melida Ha MD, [facility] CPT-4: 31798 03/13/2018 ([id number]) 97015 EST. PATIENT, LEVEL III Diagnosis: Type 2 diabetes mellitus with hyperglycemia[ICD10: E11.65] Diagnosis: Bipolar disorder, current episode depressed, moderate[ICD10: F31.32] Diagnosis: Orthostatic hypotension[ICD10: I95.1] Marcela Ha MD, [facility] CPT-4: 97457 03/07/2018 ([id number]) 29491 EST. PATIENT, LEVEL IV Diagnosis: Type 2 diabetes mellitus with hyperglycemia[ICD10: E11.65] Diagnosis: Major depressive disorder, single episode, moderate[ICD10: F32.1] Diagnosis: Orthostatic hypotension[ICD10: I95.1] Diagnosis: Other fatigue[ICD10: R53.83] Marcela Ha MD, [facility] CPT-4: 15048 02/28/2018 40095 EST. PATIENT, LEVEL IV Diagnosis: Other fatigue[ICD10: R53.83] Diagnosis: Other malaise[ICD10: R53.81] Diagnosis: Gastro-esophageal reflux disease without esophagitis[ICD10: K21.9] Madeline Ha MD, [facility] CPT-4: 55618 02/13/2018 ([id number]) 07804 EST. PATIENT, LEVEL IV Diagnosis: Type 2 diabetes mellitus with foot ulcer[ICD10: E11.621] Diagnosis: Essential (primary) hypertension[ICD10: I10] Diagnosis: Gastro-esophageal reflux disease without esophagitis[ICD10: K21.9] Marcela Ha MD, [facility] CPT-4: 08457 01/29/2018 68432 EST. PATIENT, LEVEL III Diagnosis: Other malaise[ICD10: R53.81] Diagnosis: Other fatigue[ICD10: R53.83] Diagnosis: Pain in right shoulder[ICD10: M25.511] Diagnosis: Pain in left shoulder[ICD10: M25.512] Madeline Ha MD, [facility] CPT- 4: 46796 08/27/2017 ([id number]) 30588 EST. PATIENT, LEVEL IV Diagnosis: Essential (primary) hypertension[ICD10: I10] Diagnosis: Type 2 diabetes mellitus with hyperglycemia[ICD10: E11.65] Diagnosis: VACCIN FOR INFLUENZA[ICD10: Z23] Melida Ha MD, [facility] CPT-4: 60769 08/16/2017 91078 EST. PATIENT, LEVEL III Diagnosis: Zoster without complications[ICD10: B02.9] Madeline Ha MD, [facility] CPT-4: 46778 07/26/2017 ([id number]) 75790 EST. PATIENT, LEVEL III Diagnosis: Cellulitis of right lower limb[ICD10: L03.115] Marcela Ha MD, [facility] CPT-4: 77075 07/03/2017 97844 EST. PATIENT, LEVEL II Diagnosis: Laceration without foreign body of left forearm, initial encounter[ICD10: S51.812A] Marcela Ha MD [facility] CPT-4: 93669 06/29/2017 ([id number]) 75636 EST. PATIENT, LEVEL III Diagnosis: Cellulitis of right lower limb[ICD10: L03.115] Diagnosis: Type 2 diabetes mellitus with foot ulcer[ICD10: E11.621] Marcela Ha MD, [facility] CPT-4: 65047 06/18/2017 ([id number]) 23746 EST. PATIENT, LEVEL IV Diagnosis: Cellulitis of right lower limb[ICD10: L03.115] Diagnosis: Acute laryngopharyngitis[ICD10: J06.0] Diagnosis: Gastro-esophageal reflux disease without esophagitis[ICD10: K21.9] Marcela Ha MD [facility] CPT-4: 54711 06/07/2017 ([id number]) 61141 EST. PATIENT, LEVEL III Diagnosis: Type 2 diabetes mellitus with hyperglycemia[ICD10: E11.65] Diagnosis: Insect bite (nonvenomous) of abdominal wall, initial encounter[ICD10: S30.861A] Marcela Ha MD [facility] CPT-4: 52348 05/17/2017 ([id number]) 69164 EST. PATIENT, LEVEL III Diagnosis: Allergic contact dermatitis due to plants, except food[ICD10: L23.7] Melida Ha MD, [facility] CPT-4: 45818 05/04/2017 ([id number]) 83921 EST. PATIENT, LEVEL III Diagnosis: Essential (primary) hypertension[ICD10: I10] Marcela Ha MD, [facility] CPT-4: 46911 03/15/2017 ([id number]) 14533 EST. PATIENT, LEVEL III Diagnosis: Cough[ICD10: R05] Diagnosis: Essential (primary) hypertension[ICD10: I10] Marcela Ha MD, [facility] CPT-4: 15822 03/01/2017 ([id number]) 44735 EST. PATIENT, LEVEL III Diagnosis: Cough[ICD10: R05] Diagnosis: Nasal congestion[ICD10: R09.81] Diagnosis: Acute recurrent maxillary sinusitis[ICD10: J01.01] Marcela Ha MD [facility] CPT-4: 67067 02/16/2017 ([id number]) 10274 EST. PATIENT, LEVEL III Diagnosis: Type 2 diabetes mellitus with hyperglycemia[ICD10: E11.65] Marcela Ha MD [facility] CPT-4: 83858 02/12/2017 ([id number]) 18109 EST. PATIENT, LEVEL IV Diagnosis: Type 2 diabetes mellitus with hyperglycemia[ICD10: E11.65] Diagnosis: Muscle weakness (generalized)[ICD10: M62.81] Diagnosis: Disorientation, unspecified[ICD10: R41.0] Marcela Ha MD [facility] CPT-4: 43184 02/05/2017 ([id number]) Patient admitted to the hospital from clinic (NO CHARGE) Diagnosis: Type 2 diabetes mellitus with hyperglycemia[ICD10: E11.65] Diagnosis: Disorientation, unspecified[ICD10: R41.0] Diagnosis: Muscle weakness (generalized)[ICD10: M62.81] Marcela Ha MD, [facility] CPT-4: 81030J 01/29/2017 ([id number]) Miscellaneous no charge Diagnosis: Cellulitis of right lower limb[ICD10: L03.115] Marcela Ha MD, [facility] CPT-4: 68833 10/13/2016 ([id number]) Miscellaneous no charge Diagnosis: Type 2 diabetes mellitus with foot ulcer[ICD10: E11.621] Diagnosis: Pain in right foot[ICD10: M79.671] Marcela Ha MD, [facility] CPT- 4: 22682 10/09/2016 67850 EST. PATIENT, LEVEL II Diagnosis: Cellulitis of right lower limb[ICD10: L03.115] Marcela Ha MD [facility] CPT-4: 64910 10/06/2016 ([id number]) 86976 EST. PATIENT, LEVEL IV Diagnosis: Low back pain[ICD10: M54.5] Diagnosis: Other deformities of toe(s) (acquired), left foot[ICD10: M20.5X2] Diagnosis: Type 2 diabetes mellitus with foot ulcer[ICD10: E11.621] Marcela Ha MD, [facility] CPT-4: 07145 07/18/2016 ([id number]) 17973 EST. PATIENT, LEVEL III Diagnosis: Type 2 diabetes mellitus with hyperglycemia[ICD10: E11.65] CONSTANTINO Griffin MD CPT-4: 47762 06/22/2016 ([id number]) 51645 EST. PATIENT, LEVEL IV Diagnosis: Type 2 diabetes mellitus with hyperglycemia[ICD10: E11.65] Diagnosis: Mixed hyperlipidemia[ICD10: E78.2] Diagnosis: Other hemoglobinopathies[ICD10: D58.2] [facility] CPT-4: 55573 05/23/2016 ([id number]) 50057 EST. PATIENT, LEVEL IV Diagnosis: Type 2 diabetes mellitus with other specified complication[ICD10: E11.69] Diagnosis: Dehydration[ICD10: E86.0] Marcela Ha MD, [facility] CPT-4: 82357 05/15/2016 ([id number]) OFFICE VISIT, NEW - LEVEL 3 Diagnosis: Allergic contact dermatitis due to plants, except food[ICD10: L23.7] Madeline Ha MD, [facility] CPT-4: 49784 01/20/2016 Plan of Care Planned Activity Notes Codes Status Date Visit Plan: Admitted to ICU 04/24/2019 Patient Education: Patient Medication Summary Completed 04/24/2019 Appointment: Nurse Visit 04/21/2019 Patient Education: Patient Medication Summary Completed 04/21/2019 Appointment: Nurse Visit 04/18/2019 Patient Education: Patient Medication Summary Completed 04/18/2019 Visit Plan: Hypotension - pt advised as follows: stop valsartan due to severe hypotension return to clinic for blood pressure check on Sunday of this week and on Sunday of the next week if your blood pressure continues to be low, we will have to decrease the dose or stop the imdur and start you on a medication called Ranexa - which helps to decrease the chest pain without reduction of your blood pressure. 04/14/2019 Appointment: Melida Ha WPtel: [address] [place], [place] [phone] (15 min) [facility] 04/14/2019 Patient Education: Patient Medication Summary Completed 04/14/2019 Visit Plan: Fatigue, malaise, no appetitie, dizziness, palpitations, near syncope - discussed with Dr. Ha - will send for IV fluids and set up an event monitor - pt is to notify clinic if symptoms do not improve, if they worsen, or with any changes, questions, or concerns. 04/08/2019 Appointment: Madeline Kennedy WPtel: [facility] (30 min) Complex 04/08/2019 Patient Education: Patient Medication Summary Completed 04/08/2019 Visit Plan: Left hand pain - xray [...] OTC allergy medication for sinus congestion. 04/03/2019 Appointment: Melida Ha WPtel: [facility] (15 min) Moderate 04/03/2019 Patient Education: Patient Medication Summary Completed 04/03/2019 Care Plan: X-RAY EXAM OF HAND LOINC : 83848-4 Pending 04/03/2019 Appointment: Marcela Oshea WPtel: [phone] (30 min) Complex 03/14/2019 Visit Plan: HTN -heart rate not well controlled -decrease valsartan -start metoprolol 25mg daily -return next week for blood pressure check -10 days for appt -discussed scheduling f/u appt with Dr Brennan as well -patient verbalized understanding of plan. 03/07/2019 Appointment: Marcela Oshea WPtel: [phone] (30 min) Complex 03/07/2019 Patient Education: Patient [...] any concerns 02/27/2019 Appointment: Marcela Oshea WPtel: [phone] (30 min) Complex 02/27/2019 Patient Education: Patient Medication Summary Completed 02/27/2019 Visit Plan: Orthostasis -decrease coreg -monitor symptoms and follow up in 10 days- sooner if needed Fatigue-check labs 02/17/2019 Appointment: Marcela Oshea WPtel: [address] [place] [address] (30 min) Complex 02/17/2019 Patient Education: Patient Medication Summary Completed 02/17/2019 Appointment: Marcela Oshea WPtel: [address] [place] [address] (30 min) Complex 01/14/2019 Visit Plan: Hypertension [...] Summary Completed 01/13/2019 Appointment: Marcela Oshea WPtel: [address] [place] [address] (30 min) Complex 01/10/2019 Visit Plan: Epigastric pain -start protonix daily- monitor symptoms Chest pain -work up negative done last week with Madeline-recommend appt with Dr Brennan Joint pain-check inflammation makers DM-check Hgb a1c 12/31/2018 Appointment: Marcela Oshea WPtel: [address] [place], [place] [phone] (15 min) Moderate 12/31/2018 Patient Education: Patient Medication Summary Completed 12/31/2018 Visit Plan: chest pain - EKG and cardiac enzymes OK - discussed with Dr. Ha - will treat for pneumonia - pt is to notify clinic if symptoms do not improve, if they worsen, or with any changes questions, or concerns. 12/26/2018 Appointment: [phone] ([facility] min) Complex 12/26/2018 Patient Education: Patient Medication Summary Completed 12/26/2018 Referral: Andrew Cross Patient informed. Referral info faxed. Completed 11/26/2018 Visit Plan: cough - improved - continue with inhalers - continue with symbicort - rx for proair for PRN use when pt is feelign short of breath with activity. 11/18/2018 Appointment: Melida Ha WPtel: [facility] (15 min) Moderate 11/18/2018 Patient Education: Patient [...] of plan. 11/12/2018 Appointment: Marcela Oshea WPtel: [phone] [place] (30 min) Complex 11/12/2018 Patient Education: Patient Medication Summary Completed 11/12/2018 Patient Education: Symbicort - 18-64 - eCopay Completed 11/12/2018 Care Plan: Referral Order SNOMED-CT : [id number] Pending 11/12/2018 Referral: Niko Mantilla Referral Completed 11/04/2018 Visit Plan: Pneumonia, cough - recent diagnosis of Moraxella Cattharalis - with sensitivity to levaquin - will give 2 wks of levaquin since he had improvement but no full resolution of symptoms. 10/30/2018 Appointment: Melida Ha WPtel: [phone] [facility] 30 min appointments only in this [...] evaluation 10/24/2018 Appointment: Marcela Oshea WPtel: [phone] [phone] [place] (30 min) Complex 10/24/2018 Patient Education: Patient Medication Summary Completed 10/24/2018 Care Plan: Referral Order SNOMED-CT : [id number] Pending 10/24/2018 Visit Plan: Hypotension - discussed [...] controlled. 10/23/2018 Appointment: Melida Ha WPtel: [phone] [facility] [place] (15 min) Moderate 10/23/2018 Patient [...] and plan. 10/21/2018 Appointment: Marcela Oshea WPtel[phone] (30 min) [facility] 10/21/2018 Patient Education: Patient Medication Summary Completed [...] discharge. 10/17/2018 Appointment: Madeline Kennedy [facility] [phone] [facility] (15 min) Moderate 10/17/2018 Patient Education: Patient [...] worsen. 10/14/2018 Appointment: Marcela Oshea WPtel: [phone] [phone] (15 min) Moderate 10/14/2018 Patient Education: Patient Medication Summary Completed 10/14/2018 Care Plan: CHEST X-RAY 2VW FRONTAL&LATL LOINC : 64318-4 Pending 10/14/2018 Visit Plan: URI - Pt [...] spray. 09/30/2018 Appointment: Madeline Kennedy WPtel: [phone] [phone] (15 min) Moderate 09/30/2018 Patient Education: [...] A1C 09/09/2018 Appointment: Marcela Oshea WPtel: [phone] [phone] (15 min) Moderate 09/09/2018 Patient Education: Patient Medication Summary Completed 09/09/2018 Patient Education: Patient Medication Summary Completed 09/06/2018 Patient Education: Cholesterol Management Completed 09/06/2018 Care Plan: Comp Metabolic Pending 09/06/2018 Care Plan: Cbc With Differential Pending 09/06/2018 Care Plan: %Hba1C LOINC : 50060-5 Pending 09/06/2018 Care Plan: Tsh Pending 09/06/2018 Care Plan: Lipid Pending 09/06/2018 Appointment: Marcela Oshea WPtel: [phone] [phone] [place] (15 min) Moderate 08/26/2018 Appointment: Marcela Oshea WPtel: [phone] (15 min) Moderate 08/23/2018 Visit [...] clinic. 07/22/2018 Appointment: [phone] (15 min) Moderate 07/22/2018 Patient Education: Patient [...] insomnia. 07/16/2018 Appointment: Marcela Oshea WPtel: [phone] [phone] (30 min) Complex 07/16/2018 Patient Education: Patient Medication Summary Completed 07/16/2018 Visit Plan: cough - improved - notify clinic if symptoms do not completely resolve, or with any questions or concerns. 07/01/2018 Appointment: Madeline Kennedy WPtel: [phone] [phone] (15 min) Moderate 07/01/2018 Patient Education: [...] spray. 06/28/2018 Appointment: Madeline Kennedy WPtel: [phone] [phone] (15 min) Moderate 06/28/2018 Patient Education: Patient Medication Summary Completed 06/28/2018 Patient Education: Patient Medication Summary Completed 06/21/2018 Care Plan: Annabel RICKS MS Pending 06/21/2018 Visit Plan: Diabetes Mellitus - [...] home. 06/18/2018 Appointment: Melida Ha WPtel: [phone] [facility] (15 min) Moderate 06/18/2018 Patient Education: [...] swelling improves. 06/04/2018 Appointment: Melida Ha WPtel: [facility] (15 min) Moderate 06/04/2018 Patient Education: [...] allow for greater blood glucose control. Joint grwn-qygkyzbs-heronvo-symptoms have improved -stop meloxicam due to upset stomach-call if symptoms return 05/13/2018 Appointment: Marcela Oshea WPtel: [phone] (30 min) Complex 05/13/2018 Patient Education: Patient Medication Summary Completed 05/13/2018 Visit Plan: Bilateral hip hrwx-ajrsbkmj-pardlzf IM injection administered today for c/o continued myalgia/arthralgia. Patient to start taking Meloxicam 15mg PO daily. Advised to return to clinic if symptoms do not improve. 05/02/2018 Appointment: Marcela Oshea WPtel: [phone] (30 min) Complex 05/02/2018 Patient [...] readings at home. Diabetes Mellitus -check labs Qymbknvt-uamfqrp-eyxt bite-rx for doxycycline-follow up in 2 weeks 04/29/2018 Appointment: Marcela Oshea WPtel: [phone] (15 min) Moderate 04/29/2018 Patient Education: Patient Medication Summary Completed 04/29/2018 Appointment: Melida Ha WPtel: [phone] [facility] (15 min) Moderate 04/15/2018 Appointment: Marcela Oshea WPtel: [phone] [phone] (30 min) Complex 03/21/2018 Visit Plan: [...] cymbalta 03/13/2018 Appointment: Melida Ha WPtel: [phone] [facility] (30 min) Complex 03/13/2018 Patient Education: Patient Medication Summary Completed 03/13/2018 Visit Plan: DM-continue same medications-monitor blood sugars routinely as directed -rx for new glucometer and test strips provided Bipolar- currently depressed-patient start on vraylar-follow up in 2 weeks, sooner if needed. Patient and verbalied understanding of plan. Hypotension-stay off losartan 03/07/2018 Appointment: Marcela Oshea WPtel: [phone] [phone] (30 min) Complex 03/07/2018 Patient Education: Patient Medication Summary Completed 03/07/2018 Appointment: [phone] (15 min) Moderate 03/04/2018 Visit Plan: Hypotension-continue [...] this patient. 02/28/2018 Appointment: Marcela Oshea WPtel: [phone] [phone] [place] (30 min) Complex 02/28/2018 Patient [...] improving. 02/13/2018 Appointment: [phone] (15 min) Moderate 02/13/2018 Patient Education: Patient Medication Summary Completed 02/13/2018 Referral: Sun Glynn Patient informed. Referral info faxed. Completed 02/01/2018 Visit Plan: DM-weight loss-not checking blood sugars-patient sent for labs today HTN-low eakxq-qtgjxjr-tdznf labs Callus of foot and fissue of heel-refer to Dr Glynn for evaluation Esophageal Reflux - the patient has been counseled against excessive intake of caffeine, spicy foods, peppermint, and cinnamon - all of which can exacerbate esophageal reflux. The patient is to take medications as prescribed and call the office if the symptoms are not improving. 01/29/2018 Appointment: Marcela Oshea WPtel: [phone] [phone] [place] (30 min) Complex 01/29/2018 Patient Education: Patient Medication Summary Completed 01/29/2018 Care Plan: Comp Metabolic Cancelled 01/29/2018 Care Plan: Cbc With Differential Cancelled 01/29/2018 Care Plan: %Hba1C LOINC : 47912-6 Cancelled 01/29/2018 Care Plan: Referral Order SNOMED-CT : [id number] Cancelled 01/29/2018 Visit Plan: Fatigue, malaise, joint [...] concerns. 08/27/2017 [facility]ment: [phone] [place] (15 min) Moderate 08/27/2017 [...] - 08/16/2017 Appointment: Melida Ha WPtel: [facility] (30 min) Complex 08/16/2017 Patient Education: Patient Medication Summary Completed 08/16/2017 Patient Education: Obesity Completed 08/16/2017 Appointment: Madeline Kennedy WPtel: [address] [place], [place] [phone] (30 min) Complex 08/07/2017 Visit Plan: Shingles [...] considered contagious. 07/26/2017 Appointment: Madeline Kennedy [facility]Ptel[facility] (15 min) Moderate 07/26/2017 Patient Education: Patient Medication Summary Completed 07/26/2017 Visit Plan: Cellulitis right foot-cultured today in the office- home health to reapply wound vac--appt with wound care on to evaluate for debridement- 07/03/2017 Appointment: Marcela Oshea WPtel: [phone] [place] (30 min) Complex 07/03/2017 Patient Education: Patient Medication Summary Completed 07/03/2017 Visit Plan: Abrasion left arm - Pt was instructed to keep the wound clean, wash with antibacterial soap, use triple antibiotic ointment, call if redness, pustular drainage, or any other acute concerns. 06/29/2017 Appointment: Marcela Oshea WPtel: [phone] (15 min) Moderate 06/29/2017 Patient [...] of plan. 06/18/2017 Appointment: Marcela Oshea WPtel: [address] [place] [address] (15 min) Moderate 06/18/2017 Patient Education: Patient [...] prilosec 06/07/2017 Appointment: Marcela Oshea WPtel: [phone] (10 min) Simple 06/07/2017 Patient Education: [...] bite-continue doxycycline 05/17/2017 Appointment: Marcela Oshea WPtel: [address] [place] [address] (30 min) Complex 05/17/2017 Patient Education: Patient [...] edge called into [facility]. 05/04/2017 Appointment: Marcela Oshea WPtel: [address] [place] [address] (30 min) Complex 05/04/2017 Patient Education: Patient [...] Cough-resolved 03/15/2017 Appointment: Marcela Oshea WPtel: [address] [place] [address] (15 min) Moderate 03/15/2017 Patient Education: Patient Medication Summary Completed 03/15/2017 Appointment: Marcela Oshea WPtel: [address] [place] [address] (30 min) Complex 03/12/2017 Visit Plan: Feng [...] as discussed 02/16/2017 Appointment: Marcela Oshea WPtel: [address] [phone] (15 min) Moderate 02/16/2017 Patient Education: [...] controlled. 02/12/2017 Appointment: Marcela Oshea WPtel: [phone] [phone] (30 min) Complex 02/12/2017 Patient Education: Patient Medication Summary Completed 02/12/2017 Appointment: Marcela Oshea WPtel: [phone] [phone] (30 min) Complex 02/06/2017 Visit Plan: [...] readings are starting to become less controlled. Zkkqitnpn-ngyopcyd-mmkdxvgw to monitor Generalized weakness-refer for PT-patient refuses today but will consider 02/05/2017 Appointment: Marcela Oshea WPtel: [phone] [phone] (30 min) Complex 02/05/2017 Patient Education: Patient Medication Summary Completed 02/05/2017 Appointment: Marcela Oshea WPtel: [phone] [phone] [place] (30 min) Complex 01/30/2017 Visit Plan: Acute confusion-uncontrolled diabetes-chronically noncompliant with treatment and stopped his insulin several months ago-r/o stroke vs DKA-Dr Ha in to evaluate patient-plan to admit for further work up and treatment-patient's called and she transported him to the hospital 01/29/2017 Appointment: Marcela Oshea WPtel: [phone] [phone] [place] (30 min) Complex 01/29/2017 Patient Education: Patient Medication Summary Completed 01/29/2017 Patient Education: Obesity Completed 01/29/2017 Visit Plan: Right foot pain-MRI shows foreign body-appt with Dr Grewal for evaluation on Sunday. 10/13/2016 Appointment: Marcela Oshea WPtel: [phone] [phone] [place] (15 min) Moderate 10/13/2016 Patient Education: Patient Medication Summary Completed 10/13/2016 Appointment: Marcela Oshea WPtel: [phone] [phone] [place] (30 min) Complex 10/12/2016 Visit Plan: Right foot tzkd-fufgqpjx-zmixx washer dropped on foot-xray negative but pain continues to increase-recommend MRI of foot for further evaluation-refer to wound care for lesions on right foot, patient has diabetes and history of osteomyelitis-culture obtained today-continue oral abx- follow up in the office on , sooner if needed 10/09/2016 Visit Plan: Right foot ckdx-fhspdpui-vlzln washer dropped on foot-xray negative but pain continues to increase-recommend MRI of foot for further evaluation-refer to wound care for lesions on right foot, patient has diabetes and history of osteomyelitis-culture obtained today-continue oral abx- follow up in the office on , sooner if needed 10/09/2016 Visit Plan: Right foot dkua-dmaqdpog-hbjhz washer dropped on foot-xray negative but pain continues to increase-recommend MRI of foot for further evaluation-refer to wound care for lesions on right foot, patient has diabetes and history of osteomyelitis-culture obtained today-continue oral abx- follow up in the office on , sooner if needed 10/09/2016 Appointment: Marcela Oshea WPtel: [address] [place] [address] (30 min) Complex 10/09/2016 Patient Education: Patient Medication Summary Completed 10/09/2016 Visit Plan: Cellulitis - continue with oral antibiotics as previously directed, return to clinic as previously directed, call for acute change in symptoms, worsening redness, warmth, discharge. 10/06/2016 Appointment: Marcela Oshea WPtel: [phone] (10 min) Simple 10/06/2016 Patient Education: Patient Medication Summary Completed 10/06/2016 Appointment: Marcela Oshea WPtel: [facility] [address] (30 min) Complex 08/24/2016 Referral: Sun Glynn Referral Completed 07/21/2016 Visit Plan: Low back pain- history of spinal fusion-patient for xray lumbar spine-RX sent to [facility] and instructed on use- topical voltaren samples provided and instructed on use. Ok to use tylenol as n eeded as well. The patient is to call the office if the pain is worsening or does not improve. Pressure ulcer left 4th toe-refer to Dr Glnyn for evaluation 07/18/2016 Appointment: Marcela Oshea WPtel: [address] [place] [address] (30 min) Complex 07/18/2016 Patient Education: Patient Medication Summary Completed 07/18/2016 Patient Education: Obesity Completed 07/18/2016 Care Plan: Referral Order SNOMED-CT : [id number] Cancelled 07/18/2016 Visit Plan: Diabetes Mellitus - [...] for greater blood glucose control. 06/22/2016 Appointment: [phone] (30 min) Complex [...] control. Elevated Hgb-check CBC today 05/23/2016 Appointment: Dayo [phone] (30 min) Complex [...] plan. 05/15/2016 Appointment: [phone] [place] (15 min) Moderate 05/15/2016 [...] edge called into [facility]. . 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 Low back pain- history of spinal fusion-patient for xray lumbar spine-RX sent to [facility] and instructed on use-topical voltaren samples [...] improvement but no full resolution of symptoms. Dr. Ha would like to send you for outpatient fluids today and to set you up with an event monitor that you wear for 30 days to make sure your heart is not doing any abnormal heart rhythms. 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 Fatigue, malaise, no appetitie, dizziness, palpitations, near syncope - discussed with Dr. Ha - will send for IV fluids and set up an event monitor - pt is to notify clinic if symptoms do not improve, if they worsen, or with any changes, questions, or concerns. . Hypertension - well controlled [...] for fracture from injury . Right foot qynd-jvyywdir-ddnkm washer dropped on foot-xray negative but pain [...] for fracture from injury . Right foot ikdb-ddutoqfm-zgorg washer dropped on foot-xray negative but pain [...] for fracture from injury . Right foot elnt-ctrevdpk-haodc washer dropped on foot-xray negative but pain continues to increase-recommend MRI of foot for further evaluation-refer to wound care for lesions on right foot, patient has diabetes and history of osteomyelitis- culture obtained today-continue oral abx-follow up in the office on , sooner if needed stop valsartan due to severe hypotension return to clinic for blood pressure check on Sunday of this week and on Sunday of the next week if your blood pressure continues to be low, we will have to decrease dose or stop the imdur and start you on a medication called Ranexa - which helps to decrease the chest pain without reduction of your blood pressure. . Hypotension - pt advised as follows: stop valsartan due to severe hypotension return to clinic for blood pressure check on Sunday of this week and on Sunday of the next week if your blood pressure continues to be low, we will have to decrease the dose or stop the imdur and start you on a medication called Ranexa - which helps to decrease the chest pain without reduction of your blood pressure. PROTONIX 40MG DAILY CHECK LABS APPT WITH [...] if needed Fatigue-check labs . Bilateral hip ctha-znovbvws-korkxav IM injection administered today for c/o continued myalgia/arthralgia. Patient to start taking Meloxicam 15mg PO daily. Advised to return to clinic if symptoms do not improve. . DM-weight loss-not checking blood sugars-patient sent for labs today HTN-low ydcky-nkrtydk-vbzjj labs Callus of foot and fissue of [...] readings are starting to become less controlled. 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 HTN -heart rate not well controlled -decrease [...] allow for greater blood glucose control. Joint ylkf-wkqgejcu-ioipjeb-symptoms have improved -stop meloxicam due to upset [...] readings at home. Diabetes Mellitus -check labs Jmpqsxqg-rwjlruo-wrgx bite-rx for doxycycline-follow up in 2 weeks [...]
--- OUTSIDE RECORDS SUMMARY | 2019-04-24 14:03 | XMS REPORT | CCD ---
Author Author Madeline Kennedy MD, [facility] Address [address] [place] [address] Phone Care Team Providers Care Kitchenwhere Maker Name Role Phone PP Unavailable CCM Unavailable Summary Purpose Interface Exchange Insurance Providers Payer name Policy type / Coverage type Covered libertarian ID Effective Begin Date Effective End Date [email or web address] Commercial Insurance [id number] 2018 Unknown Family history Father Diagnosis Age At Onset Hyperlipidemia Unknown Heart Attack Unknown Mother Diagnosis Age At Onset Hypertension Unknown Social History Social History Element Codes Description Effective Dates Marital status Unknown Mignon 01/20/2016 Number of children Unknown 4 01/20/2016 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/[address]: 147108991 Never smoker 01/20/[address]: 572615600 Never drinks alcohol 01/20/2016 Allergies, Adverse Reactions, [...] ICD-9: 780.79 ICD-10: R53.81 Active 08/27/2017 Unknown Palpitations ICD-9: 785.1 ICD-10: R00.2 Active 04/08/2019 Unknown Weakness ICD-9: 780.79 ICD-10: R53.1 Active [...] Active 04/03/2019 Unknown 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 [...] malaise ICD-9: 780.79 ICD-10: R53.81 08/27/2017 Active Palpitations ICD-9: 785.1 ICD-10: R00.2 04/08/2019 Active Weakness ICD-9: 780.79 ICD-10: R53.1 04/08/2019 Active Contusion of left hand, initial encounter ICD-9: 923.20 ICD-10: S60.222A 04/03/2019 Active Headache ICD-9: 784.0 ICD-10: R51 04/03/2019 Active Nasal congestion ICD-9: 478.19 ICD-10: R09.81 02/16/2017 Active Pain in left finger(s) ICD-9: 729.5 ICD-10: M79.645 04/03/2019 Active Pain in left hand ICD-9: 729.5 ICD-10: M79.642 04/03/2019 Active 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 [...] aspart 100 unit/mL (3 mL) subcutaneous RxNorm: 6305270 10 Unit(s) SQ AC 04/14/2019 No Stop Date Active valsartan 80 mg tablet RxNorm: 265213 1/2 Tablet(s) PO daily 04/14/2019 04/14/2019 Inactive Topamax 25 mg tablet RxNorm: 703827 1 Tablet(s) PO BID 03/11/2019 04/13/2019 Inactive Topamax 25 mg tablet RxNorm: 153197 1 Tablet(s) PO BID 03/11/2019 03/10/2019 Inactive valsartan 40 mg tablet RxNorm: 011069 1/2 Tablet(s) PO daily 03/07/2019 04/13/2019 Inactive metoprolol succinate ER 25 mg tablet,extended release 24 hr RxNorm: 508487 1 Tablet(s) PO QPM 03/07/2019 03/09/2019 Inactive Cymbalta 30 mg capsule,delayed release RxNorm: 583416 1 Capsule(s) PO daily 02/27/2019 04/13/2019 Inactive Lyrica 50 mg capsule RxNorm: 294421 Capsule(s) PO daily 02/26/2019 06/25/2019 Active Cymbalta 60 mg capsule,delayed release RxNorm: 834808 1 Capsule(s) PO QAM 02/19/2019 02/26/2019 Inactive will call for refill- dose change Coreg 6.25 mg tablet RxNorm: 564223 1 Tablet(s) daily 02/19/2019 02/26/2019 Inactive clonazepam 1 mg tablet RxNorm: 703807 2 Tablet(s) PO HS 02/18/2019 06/14/2019 Active Tresiba FlexTouch U-200 insulin 200 unit/mL (3 mL) subcutaneous pen RxNorm: 5527934 50 Unit(s) SQ daily 01/08/2019 05/07/2019 Active please give him 30 day supply Protonix 40 mg tablet,delayed release RxNorm: 826589 1 Tablet(s) PO daily 12/31/2018 01/29/2019 Inactive Tresiba FlexTouch U-200 insulin 200 unit/mL (3 mL) subcutaneous pen RxNorm: 2814720 50 Unit(s) SQ daily 12/31/2018 01/07/2019 Inactive please give him 30 day supply Augmentin 500 mg-125 mg tablet RxNorm: 579559 1 Tablet(s) PO TID 12/26/2018 01/04/2019 Inactive Augmentin 500 mg-125 mg tablet RxNorm: 182529 1 Tablet(s) PO TID 12/26/2018 12/25/2018 Inactive ProAir HFA 90 mcg/actuation aerosol inhaler RxNorm: 7657151 2 Puff(s) INH QID as needed 11/18/2018 04/13/2019 Inactive Lyrica 50 mg capsule RxNorm: 652282 Capsule(s) PO daily 11/13/2018 02/07/2019 Inactive Cymbalta 30 mg capsule,delayed release RxNorm: 934667 1 Capsule(s) PO QAM 11/13/2018 02/18/2019 Inactive Lyrica 50 mg capsule RxNorm: 803687 Capsule(s) PO daily 11/13/2018 11/12/2018 Inactive Symbicort 160 mcg-4.5 mcg/actuation HFA aerosol inhaler RxNorm: 9585196 2 Puff(s) INH BID 11/12/2018 12/11/2018 Inactive azithromycin 500 mg tablet RxNorm: 427145 500mg on day 1 then 250 mg daily x 4 more day Tablet(s) PO 11/07/2018 11/06/2018 Inactive 500mg on day 1 and then 250mg daily 2-4 cefdinir 300 mg capsule RxNorm: 844527 1 Capsule(s) PO BID 11/07/2018 11/06/2018 Inactive albuterol sulfate 2.5 mg/3 mL (0.083 %) solution for nebulization RxNorm: 911649 3 Milliliter(s) INH UD 11/07/2018 04/13/2019 Inactive azithromycin 500 mg tablet RxNorm: 293193 500mg on day 1 then 250 mg daily x 4 more day Tablet(s) PO 11/07/2018 01/07/2019 Inactive 500mg on day 1 and then 250mg daily 2-4 cefdinir 300 mg capsule RxNorm: 098165 1 Capsule(s) PO BID 11/07/2018 11/13/2018 Inactive Levaquin 500 mg tablet RxNorm: 412337 1 Tablet(s) PO daily TAKE ONE TABLET BY MOUTH DAILY UNTIL GONE 10/31/2018 11/13/2018 Inactive Levaquin 500 mg tablet RxNorm: 561978 1 Tablet(s) PO daily 10/30/2018 11/12/2018 Inactive valsartan 80 mg tablet RxNorm: 081387 1/2 Tablet(s) PO daily 10/23/2018 03/06/2019 Inactive doxycycline hyclate 100 mg tablet RxNorm: 2541509 1 Tablet(s) PO BID 10/21/2018 10/27/2018 Inactive ketorolac 60 mg/2 mL intramuscular solution RxNorm: 0481174 Milliliter(s) IM 10/21/2018 10/21/2018 Inactive Levaquin 500 mg tablet RxNorm: 838256 1 Tablet(s) PO daily 10/17/2018 10/31/2018 Inactive albuterol sulfate 2.5 mg/3 mL (0.083 %) solution for nebulization RxNorm: 062921 3 Milliliter(s) INH UD 10/14/2018 11/06/2018 Inactive Levaquin 500 mg tablet RxNorm: 107511 1 Tablet(s) PO daily 10/14/2018 10/16/2018 Inactive Tessalon Perles 100 mg capsule RxNorm: 009024 1-2 Capsule(s) PO TID PRN 10/14/2018 04/13/2019 Inactive albuterol sulfate 2.5 mg/3 mL (0.083 %) solution for nebulization RxNorm: 911748 3 Milliliter(s) INH UD 09/30/2018 10/13/2018 Inactive Kenalog 40 mg/mL suspension for injection RxNorm: 7937611 1.5 Milliliter(s) Inj 09/30/2018 09/30/2018 Inactive Coreg 6.25 mg tablet RxNorm: 266354 TAKE ONE TABLET BY MOUTH TWICE A DAY 09/30/2018 02/18/2019 Inactive Keflex 500 mg capsule RxNorm: 267634 1 Capsule(s) PO TID 09/27/2018 10/03/2018 Inactive prednisone 20 mg tablet RxNorm: 250866 2 Tablet(s) PO daily 09/27/2018 09/29/2018 Inactive Kenalog 40 mg/mL suspension for injection RxNorm: 5597250 Milliliter(s) Inj 09/11/2018 09/11/2018 Inactive Zyrtec 10 mg tablet RxNorm: 8682343 1 Tablet(s) PO daily 09/09/2018 04/13/2019 Inactive Keflex 500 mg capsule RxNorm: 705642 1 Capsule(s) PO TID 09/09/2018 09/15/2018 Inactive Tresiba FlexTouch U-200 insulin 200 unit/mL (3 mL) subcutaneous pen RxNorm: 8457443 50 Unit(s) SQ daily 08/30/2018 08/29/2018 Inactive please give him 30 day supply Tresiba FlexTouch U-200 insulin 200 unit/mL (3 mL) subcutaneous pen RxNorm: 8078218 50 Unit(s) SQ daily 08/30/2018 09/28/2018 Inactive please give him 30 day supply Novolog Flexpen U-100 Insulin aspart 100 unit/mL subcutaneous RxNorm: 3712272 8 Unit(s) SQ AC 08/13/2018 04/13/2019 Inactive Novolog Flexpen U-100 Insulin aspart 100 unit/mL subcutaneous RxNorm: 2087515 8 Unit(s) SQ AC 07/22/2018 2018 Inactive this is an update on his medication Novolog Flexpen U-100 Insulin aspart 100 unit/mL subcutaneous RxNorm: 4866795 12 Unit(s) SQ AC 07/05/2018 07/21/2018 Inactive this is an update on his medication Toujeo SoloStar U-300 Insulin 300 unit/mL (1.5 mL) subcutaneous pen RxNorm: 0079477 INJECT 50 UNITS UNDER THE SKIN DAILY 07/01/2018 08/29/2018 Inactive Mucinex 600 mg tablet, extended release RxNorm: 850357 1 Tablet(s) PO BID 06/28/2018 07/04/2018 Inactive Zofran 4 mg tablet RxNorm: 899051 1 Tablet(s) PO TID as needed nausea 06/28/2018 07/02/2018 Inactive Kenalog 40 mg/mL suspension for injection RxNorm: 8325709 Milliliter(s) Inj 06/28/2018 06/28/2018 Inactive Flonase Allergy Relief 50 mcg/actuation nasal spray,suspension RxNorm: 8440625 [address] NASAL BID 06/28/2018 07/08/2018 Inactive Lyrica 50 mg capsule RxNorm: 801541 Capsule(s) PO daily 06/24/2018 07/06/2018 Inactive Novolog Flexpen U-100 Insulin aspart 100 unit/mL subcutaneous RxNorm: 0234439 10 Unit(s) SQ AC 06/18/2018 07/04/2018 Inactive this is an update on his medication Lasix 20 mg tablet RxNorm: 823676 1 Tablet(s) PO BIW 06/12/2018 07/02/2018 Inactive atorvastatin 80 mg tablet RxNorm: 812131 1 Tablet(s) PO QHS 06/10/2018 12/06/2018 Inactive clonazepam 1 mg tablet RxNorm: 925740 2 Tablet(s) PO HS as needed 06/10/2018 06/08/2018 Inactive clonazepam 1 mg tablet RxNorm: 308626 2 Tablet(s) PO HS 06/10/2018 02/17/2019 Inactive Lyrica 50 mg capsule RxNorm: 111835 Capsule(s) PO daily 06/10/2018 07/08/2018 Inactive Lasix 20 mg tablet RxNorm: 1 Tablet(s) PO TIW 06/04/2018 06/11/2018 Inactive Toujeo SoloStar U-300 Insulin 300 unit/mL (1.5 mL) subcutaneous pen RxNorm: 8773871 50 Unit(s) SQ daily 05/07/2018 06/30/2018 Inactive meloxicam 15 mg tablet RxNorm: 236717 15 Milligram(s) PO daily 05/02/2018 05/12/2018 Inactive ketorolac 30 mg/mL injection solution RxNorm: 635310 2 Milliliter(s) Inj 05/02/2018 05/02/2018 Inactive Toujeo SoloStar U-300 Insulin 300 unit/mL (1.5 mL) subcutaneous pen RxNorm: 6379842 45 Unit(s) daily 04/29/2018 05/02/2018 Inactive clonazepam 1 mg tablet RxNorm: 525976 1 Tablet(s) PO Q8 as needed 04/29/2018 06/09/2018 Inactive doxycycline hyclate 100 mg tablet RxNorm: 3544374 1 Tablet(s) PO BID 04/29/2018 05/12/2018 Inactive Cymbalta 30 mg capsule,delayed release RxNorm: 673784 1 Capsule(s) PO QAM 03/13/2018 10/08/2018 Inactive Lexapro 10 mg tablet RxNorm: 101258 1 Tablet(s) PO QPM 02/28/2018 03/03/2018 Inactive Toujeo SoloStar U-300 Insulin 300 unit/mL (1.5 mL) subcutaneous pen RxNorm: 4333423 20 Unit(s) daily 02/28/2018 03/03/2018 Inactive Protonix 40 mg tablet,delayed release RxNorm: 077443 1 Tablet(s) PO daily 01/29/2018 06/09/2018 Inactive clonazepam 1 mg tablet RxNorm: 311483 1 Tablet(s) PO Q8 as needed 12/12/2017 03/10/2018 Inactive Tamiflu 75 mg capsule RxNorm: 814588 1 Capsule(s) PO BID 11/29/2017 12/03/2017 Inactive doxycycline hyclate 100 mg capsule RxNorm: 8780232 1 Capsule(s) PO BID 09/07/2017 09/20/2017 Inactive doxycycline hyclate 100 mg capsule RxNorm: 3597415 1 Capsule(s) PO BID 08/27/2017 09/06/2017 Inactive prednisone 20 mg tablet RxNorm: 696109 2 Tablet(s) PO daily 08/27/2017 08/31/2017 Inactive clopidogrel 75 mg tablet RxNorm: 945315 1 Tablet(s) PO daily 08/24/2017 06/09/2018 Inactive atorvastatin 40 mg tablet RxNorm: 634068 1 Tablet(s) PO QHS 08/24/2017 02/27/2018 Inactive losartan 25 mg tablet RxNorm: 262448 TAKE ONE TABLET BY MOUTH DAILY 08/22/2017 06/09/2018 Inactive Toujeo SoloStar 300 unit/mL (1.5 mL) subcutaneous insulin pen RxNorm: 4659865 45 Unit(s) daily 08/17/2017 08/20/2017 Inactive mupirocin 2 % topical ointment RxNorm: 174039 1 Application TOP TID to the lesions on chest 08/16/2017 08/25/2017 Inactive Toujeo SoloStar 300 unit/mL (1.5 mL) subcutaneous insulin pen RxNorm: 2511879 40 Unit(s) daily 08/16/2017 08/16/2017 Inactive valacyclovir 1 gram tablet RxNorm: 101724 1 Tablet(s) PO TID 07/26/2017 08/01/2017 Inactive clonazepam 1 mg tablet RxNorm: 910324 1 Tablet(s) PO Q8 as needed 07/03/2017 09/30/2017 Inactive Levaquin 500 mg tablet RxNorm: 565254 1 Tablet(s) PO daily 06/22/2017 06/25/2017 Inactive Levaquin 500 mg tablet RxNorm: 454285 1 Tablet(s) PO daily 06/18/2017 06/21/2017 Inactive losartan 25 mg tablet RxNorm: 617574 1 Tablet(s) PO daily 06/18/2017 08/16/2017 Inactive nystatin 100,000 unit/mL oral suspension RxNorm: 720125 5 Milliliter(s) PO QID Swish et swallow 06/18/2017 06/17/2017 Inactive nystatin 100,000 unit/mL oral suspension RxNorm: 546645 5 Milliliter(s) PO QID Swish et swallow 06/18/2017 06/27/2017 Inactive Cipro 500 mg tablet RxNorm: 845276 1 Tablet(s) PO BID 06/12/2017 06/18/2017 Inactive Cipro 500 mg tablet RxNorm: 951268 1 Tablet(s) PO BID 06/12/2017 06/11/2017 Inactive Toujeo SoloStar 300 unit/mL (1.5 mL) subcutaneous insulin pen RxNorm: 8679799 INJECT 10 UNITS UNDER THE SKIN DAILY 06/12/2017 08/15/2017 Inactive Keflex 500 mg capsule RxNorm: 955447 1 Capsule(s) PO TID 06/07/2017 06/13/2017 Inactive doxycycline hyclate 100 mg capsule RxNorm: 1998444 1 Capsule(s) PO BID 05/17/2017 05/21/2017 Inactive doxycycline hyclate 100 mg capsule RxNorm: 4315293 1 Capsule(s) PO BID 05/11/2017 05/16/2017 Inactive losartan 25 mg tablet RxNorm: 919134 1 Tablet(s) PO daily 03/01/2017 06/17/2017 Inactive atorvastatin 40 mg tablet RxNorm: 300125 1 Tablet(s) PO daily 03/01/2017 08/23/2017 Inactive clopidogrel 75 mg tablet RxNorm: 429434 1 Tablet(s) PO daily 03/01/2017 08/23/2017 Inactive Flonase Allergy Relief 50 mcg/actuation nasal spray,suspension RxNorm: 4933194 [address] NASAL daily 02/16/2017 02/25/2017 Inactive Augmentin 875 mg-125 mg tablet RxNorm: 876189 1 Tablet(s) PO BID 02/16/2017 02/22/2017 Inactive GET PROBIOTIC TO TAKE WHILE ON ABX Tamiflu 75 mg capsule RxNorm: 699677 1 Capsule(s) PO BID 02/16/2017 02/20/2017 Inactive ceftriaxone 500 mg solution for injection RxNorm: 6529656 1 Milliliter(s) Inj 02/16/2017 02/16/2017 Inactive Kenalog 40 mg/mL suspension for injection RxNorm: 9096538 1 Milliliter(s) Inj 02/16/2017 02/16/2017 Inactive Toujeo SoloStar 300 unit/mL (1.5 mL) subcutaneous insulin pen RxNorm: 5356532 25 Unit(s) SQ QAM 02/12/2017 06/10/2017 Inactive Toujeo SoloStar 300 unit/mL (1.5 mL) subcutaneous insulin pen RxNorm: 3868748 10 Unit(s) SQ QAM 02/05/2017 02/11/2017 Inactive lisinopril 10 mg tablet RxNorm: 842818 1 Tablet(s) PO daily 02/01/2017 02/28/2017 Inactive atorvastatin 40 mg tablet RxNorm: 610806 1 Tablet(s) PO daily 02/01/2017 02/28/2017 Inactive doxycycline hyclate 100 mg capsule RxNorm: 3468066 1 Capsule(s) PO BID 02/01/2017 02/10/2017 Inactive clonazepam 1 mg tablet RxNorm: 082042 1 Tablet(s) PO Q8 as needed 10/09/2016 01/05/2017 Inactive ceftriaxone 1 gram solution for injection RxNorm: 0973440 Inj 10/06/2016 10/06/2016 Inactive cyclobenzaprine 10 mg tablet RxNorm: 593524 1/2-1 Tablet(s) PO TID PRN 07/18/2016 01/28/2017 Inactive clonazepam 1 mg tablet RxNorm: 877446 1 Tablet(s) PO Q8 as needed 05/31/2016 05/29/2016 Inactive clonazepam 1 mg tablet RxNorm: 892003 1 Tablet(s) PO Q8 as needed 05/31/2016 08/28/2016 Inactive Toujeo SoloStar 300 unit/mL (1.5 mL) subcutaneous insulin pen RxNorm: 4347665 10 Unit(s) SQ daily 05/23/2016 01/28/2017 Inactive Crestor 10 mg tablet RxNorm: 414556 1 Tablet(s) PO QHS 05/19/2016 01/28/2017 Inactive Crestor 10 mg tablet RxNorm: 360277 1 Tablet(s) PO QHS 05/19/2016 05/18/2016 Inactive clonazepam 1 mg tablet RxNorm: 655572 1 Tablet(s) PO Q8 as needed 04/25/2016 05/30/2016 Inactive prednisone 20 mg tablet RxNorm: 433173 3 Tablet(s) PO daily 02/11/2016 02/10/2016 Inactive prednisone 20 mg tablet RxNorm: 499555 3 Tablet(s) PO daily 02/11/2016 05/14/2016 Inactive Kenalog 40 mg/mL suspension for injection RxNorm: 0850406 Milliliter(s) Inj 01/20/2016 01/20/2016 Inactive multivitamin tablet RxNorm: 1 Tablet(s) PO daily No Start Date Active aspirin 81 mg tablet,delayed release RxNorm: 742974 1 Tablet(s) PO daily No Start Date Active Brilinta 90 mg tablet RxNorm: 6832404 1 Tablet(s) PO BID No Start Date Active pantoprazole 40 mg tablet,delayed release RxNorm: 880259 1 Tablet(s) PO daily No Start Date Active isosorbide mononitrate ER 30 mg tablet,extended release 24 hr RxNorm: 097649 1 Tablet(s) PO daily No Start Date Active acetaminophen 500 mg tablet RxNorm: 902788 1-2 Tablet(s) PO as needed No Start Date Active clopidogrel 75 mg tablet RxNorm: 430979 1 Tablet(s) PO daily No Start Date 02/28/2017 Inactive Novolog Flexpen U-100 Insulin aspart 100 unit/mL subcutaneous RxNorm: 7516884 5 units with breakfast lunch and 10 supper Unit(s) SQ No Start Date 06/17/2018 Inactive clonazepam 1 mg tablet RxNorm: 643630 1 Tablet(s) PO QHS No Start Date 04/24/2016 Inactive Coreg 6.25 mg tablet RxNorm: 022608 1 Tablet(s) PO BID No Start Date 09/29/2018 Inactive acyclovir 400 mg tablet RxNorm: 770877 2 Tablet(s) PO 5x daily No Start Date 02/28/2017 Inactive Lyrica 50 mg capsule RxNorm: 089546 Capsule(s) PO BID No Start Date 06/09/2018 Inactive Vraylar 3 mg capsule RxNorm: 5787976 1 Capsule(s) PO daily No Start Date 03/12/2018 Inactive valsartan 80 mg tablet RxNorm: 280823 1 Tablet(s) PO daily No Start Date 10/22/2018 Inactive Medication Administered Medication Codes Instructions Start Date Status ketorolac 60 mg/2 mL intramuscular solution RxNorm: 4406853 Milliliter 10/21/2018 No longer Active Kenalog 40 mg/mL suspension for injection RxNorm: 2536458 1.5Milliliter 09/30/2018 No longer Active Kenalog 40 mg/mL suspension for injection RxNorm: 0391659 Milliliter 09/11/2018 No longer Active Kenalog 40 mg/mL suspension for injection RxNorm: 1565675 Milliliter 06/28/2018 No longer Active ketorolac 30 mg/mL injection solution RxNorm: 143073 2Milliliter 05/02/2018 No longer Active ceftriaxone 500 mg solution for injection RxNorm: 7493815 1Milliliter 02/16/2017 No longer Active Kenalog 40 mg/mL suspension for injection RxNorm: 3637800 1Milliliter 02/16/2017 No longer Active ceftriaxone 1 gram solution for injection RxNorm: 7581544 10/06/2016 No longer Active Kenalog 40 mg/mL suspension for injection RxNorm: 9002715 Milliliter 01/20/2016 No longer Active Immunizations Vaccine [...] Other fatigue ICD-10: R53.83 ICD-9: 780.79 04/08/2019 Palpitations ICD-10: R00.2 ICD-9: 785.1 04/08/2019 Weakness ICD-10: R53.1 ICD-9: 780.79 04/08/2019 Pain in left finger(s) ICD-10: M79.645 ICD-9: 729.5 04/03/2019 Pain in left hand ICD-10: M79.642 ICD-9: 729.5 04/03/2019 Headache ICD-10: R51 ICD-9: 784.0 04/03/2019 Nasal congestion ICD-10: R09.81 ICD-9: 478.19 04/03/2019 Contusion of left hand, initial encounter ICD-10: S60.222A ICD-9: 923.20 04/03/2019 Atherosclerotic heart disease of [place] coronary artery without angina pectoris ICD-10: I25.10 [...] Visit Effective Dates Notes Hospital Follow Up 04/14/2019 fatigue 04/08/2019 hand [...] Item Item Code Result Date Culture Sputum 144549 LOWER RESPIRATORY TRACT CULTURE SEE NOTES 11/14/2018 Culture Sputum 056660 LOWER RESPIRATORY TRACT CULTURE SEE NOTES 10/16/2018 LIPID GRP [id number] CHOLESTEROL TNP:Duplicate Order 09/10/2018 LIPID GRP 2676347 Triglyceride TNP:Duplicate Order 09/10/2018 LIPID GRP HDL CHOLESTEROL TNP:Duplicate Order 09/10/2018 LIPID GRP [id number] Chol/HDL Ratio TNP:Duplicate Order 09/10/2018 LIPID GRP 6085050 LDL Cholesterol TNP:Duplicate Order 09/10/2018 A1C HPLC 9684973 Hgb A1c 71683-9 TNP:Duplicate Order 09/10/2018 C Diff An [id number] GDH TNP:Lab Request 06/22/2018 C Diff An [id number] Toxin A/B TNP:Lab Request 06/22/2018 C Diff An [id number] C Diff Analyzer TNP:Lab Request 06/22/2018 C Diff An [id number] IC OK? TNP:Lab Request 06/22/2018 CBC [id number] WBC 6.4 10e9/L 05/02/2018 CBC 3662978 RBC 5.60 10e12/L 05/02/2018 CBC 0063463 HEMOGLOBIN 17.0 g/dL 05/02/2018 CBC 4999094 HEMATOCRIT 48.0 % 05/02/2018 CBC 5245433 MCV 85.7 fL 05/02/2018 CBC 1011926 MCH 30.4 pg 05/02/2018 CBC 0317793 MCHC 35.4 g/dL 05/02/2018 CBC 5371933 PLATELET COUNT 166 10e9/L 05/02/2018 CBC 7714955 Mean Plt Volume 11.6 fL 05/02/2018 CBC 8115022 Neut Auto 48.6 % 05/02/2018 CBC 8588007 Lymph Auto 41.7 % 05/02/2018 CBC 2684419 [place] Auto 8.1 % 05/02/2018 CBC 8337813 RDW 13.1 % 05/02/2018 CBC 3905457 Eos Auto 1.1 % 05/02/2018 CBC 8458460 Baso Auto 0.5 % 05/02/2018 CBC 5047335 Neutrophil Abs 3.11 10e9/L 05/02/2018 CBC 9782081 Lymphocyte Abs 2.67 10e9/L 05/02/2018 CBC 0811243 Monocyte Abs 0.52 10e9/L 05/02/2018 CBC 0280367 Eosinophil Abs 0.07 10e9/L 05/02/2018 CBC 6151918 RDW-SD 40.0 fL 05/02/2018 CBC 5336759 Basophil Abs 0.03 10e9/L 05/02/2018 CHEM 14 3202990 AST 17 U/L 05/02/2018 CHEM 14 7264950 ALT 17 U/L 05/02/2018 CHEM 14 0488313 BUN 17 mg/dL 05/02/2018 CHEM 14 1348996 ALBUMIN 4.0 g/dL 05/02/2018 CHEM 14 3902600 CHLORIDE 97 mmol/L 05/02/2018 CHEM 14 5959089 Bili Total 0.9 mg/dL 05/02/2018 CHEM 14 3230128 ALK PHOS 67 U/L 05/02/2018 CHEM 14 6839816 SODIUM 135 mmol/L 05/02/2018 CHEM 14 7279383 CREATININE 1.18 mg/dL 05/02/2018 CHEM 14 0427405 CALCIUM 9.4 mg/dL 05/02/2018 CHEM 14 2794179 POTASSIUM 4.4 mmol/L 05/02/2018 CHEM 14 2660267 TOTAL PROTEIN 6.9 g/dL 05/02/2018 CHEM 14 9839804 GLUCOSE 316 mg/dL 05/02/2018 CHEM 14 3497879 Bicarbonate 29 mmol/L 05/02/2018 CHEM 14 7307665 AGAP 9 mmol/L 05/02/2018 MEAN GLUC 1534831 Calc Mean Gluc 283 mg/dL 05/02/2018 A1C HPLC 8974603 Hgb A1c 23224-8 11.5 % 05/02/2018 GFR CALC 5862099 GFR Non Afr Amr >60 mL/min 05/02/2018 GFR CALC 0607806 GFR Afr Amr >60 mL/min 05/02/2018 [facility] Gold 1857800 [facility] Gold Complete 02/28/2018 GFR CALC 9437381 GFR Non Afr Amr >60 mL/min 02/28/2018 GFR CALC 0083435 GFR Afr Amr >60 mL/min 02/28/2018 UA W/CII 1790016 UA Urine Appear Normal 02/28/2018 UA W/CII 7925722 UA Protein 1+ 02/28/2018 UA W/CII 0047775 UA Hemoglobin Negative 02/28/2018 UA W/CII 6565393 UA Glucose 4+ 02/28/2018 UA W/CII 0332373 UA Ketones Trace 02/28/2018 UA W/CII 7557195 UA pH 5.5 02/28/2018 UA W/CII 5223956 U Spec [place] 1.015 02/28/2018 UA W/CII 4061861 UA Bilirubin Negative 02/28/2018 UA W/CII 6341610 UA Nitrite NEG 02/28/2018 UA W/CII 1374862 UA Leuk Esteras Negative 02/28/2018 MICR 5461969 UA WBC/hpf 1 02/28/2018 MICR 0507446 UA RBC hpf 2 02/28/2018 MICR 7013119 UA WBC auto 3.8 /uL 02/28/2018 MICR 1852603 UA RBC auto 12.2 /uL 02/28/2018 MICR 0604637 UA SQ EPI auto 2.3 /uL 02/28/2018 MICR 1518420 UA H Cast auto 0.10 /uL 02/28/2018 CBC 1723795 WBC 6.4 10e9/L 02/28/2018 CBC 6817022 RBC 5.51 10e12/L 02/28/2018 CBC 1046196 HEMOGLOBIN 16.7 g/dL 02/28/2018 CBC 8439001 HEMATOCRIT 46.9 % 02/28/2018 CBC 5860958 MCV 85.1 fL 02/28/2018 CBC 4092835 MCH 30.3 pg 02/28/2018 CBC 9672450 MCHC 35.6 g/dL 02/28/2018 CBC 0970238 PLATELET COUNT 173 10e9/L 02/28/2018 CBC 4880481 Mean Plt Volume 11.6 fL 02/28/2018 CBC 9309620 Neut Auto 51.8 % 02/28/2018 CBC 6652096 Lymph Auto 39.9 % 02/28/2018 CBC 1253363 [place] Auto 7.3 % 02/28/2018 CBC 8867814 RDW 13.3 % 02/28/2018 CBC 4760355 Eos Auto 0.8 % 02/28/2018 CBC 0269422 Baso Auto 0.2 % 02/28/2018 CBC 4195694 Neutrophil Abs 3.32 10e9/L 02/28/2018 CBC 5445658 Lymphocyte Abs 2.55 10e9/L 02/28/2018 CBC 3984171 Monocyte Abs 0.47 10e9/L 02/28/2018 CBC 5820302 Eosinophil Abs 0.05 10e9/L 02/28/2018 CBC 3855288 RDW-SD 40.8 fL 02/28/2018 CBC 8632423 Basophil Abs 0.01 10e9/L 02/28/2018 CHEM 14 4839481 AST 17 U/L 02/28/2018 CHEM 14 0115921 ALT 17 U/L 02/28/2018 CHEM 14 7777696 BUN 20 mg/dL 02/28/2018 CHEM 14 6994309 ALBUMIN 4.1 g/dL 02/28/2018 CHEM 14 4729515 CHLORIDE 97 mmol/L 02/28/2018 CHEM 14 1643125 Bili Total 1.3 mg/dL 02/28/2018 CHEM 14 8388254 ALK PHOS 78 U/L 02/28/2018 CHEM 14 8711242 SODIUM 135 mmol/L 02/28/2018 CHEM 14 4012448 CREATININE 1.09 mg/dL 02/28/2018 CHEM 14 2627270 CALCIUM 9.6 mg/dL 02/28/2018 CHEM 14 1660824 POTASSIUM 3.8 mmol/L 02/28/2018 CHEM 14 [id number] TOTAL PROTEIN 7.3 g/dL 02/28/2018 CHEM 14 7805430 GLUCOSE 349 mg/dL 02/28/2018 CHEM 14 0249343 Bicarbonate 29 mmol/L 02/28/2018 CHEM 14 5411601 AGAP 9 mmol/L 02/28/2018 [place] Spotted Fever Igg/Igm 964026 FEI [place] SPOTTED FEVER IGM EIA . 09/05/2017 [place] Spotted Fever Igg/Igm 509782 RMSF, IGM 0.17 index 09/05/2017 [place] Spotted Fever Igg/Igm 990861 FEI MT SPOTTED FEVER IGG EIA FLEX . 09/05/2017 [place] Spotted Fever Igg/Igm 229267 RMSF, IGG SCREEN-FLEX Positive 09/05/2017 Fei Mtn Spot'D Fev Igg 719293 RMSF, IGG- TITER IFA <1:64 09/05/2017 Ehrlichia Chaffeensis Antibody Igm 896250 EHRLICHIA CHAFFEENSIS IGM < 1:16 09/03/2017 Ehrlichia Chaffeensis Antibody Igg 337190 EHRLICHIA CHAFFEENSIS IGG <1:64 09/03/2017 Lymes Disease Total Antibodies With Western Blot Reflex B. BURGDORFERI, IGG/IGM 0.223 08/30/2017 Lymes Disease Total Antibodies With Western Blot Reflex 08/30/2017 C-Reactive Protein Qnt Crqnt CRP 0.00 mg/dl 08/27/2017 Sed Rate Ord21 ESR 8 mm/hr 08/27/2017 Comp Metabolic Gbz628 NA 135 mEq/L 08/16/2017 Comp Metabolic Fhd214 K 4.1 mEq/L 08/16/2017 Comp Metabolic Tav880 CL 98 mEq/L 08/16/2017 Comp Metabolic Sgq451 CO2 28.0 mEq/L 08/16/2017 Comp Metabolic Nxf502 ANION GAP 13 08/16/2017 Comp Metabolic Zro264 GLUCOSE 299 mg/dL 08/16/2017 Comp Metabolic Jnj889 Creat 0.9 mg/dL 08/16/2017 Comp Metabolic Cwe032 eGFR 90 ml/min/1.73m2 08/16/2017 Comp Metabolic Ivz722 BUN 20 mg/dL 08/16/2017 Comp Metabolic Soi610 B/C Ratio 21.5 Ratio 08/16/2017 Comp Metabolic Oqz574 CALCIUM 9.2 mg/dL 08/16/2017 Comp Metabolic Jsf686 ALK PHOS 84 U/L 08/16/2017 Comp Metabolic Zvb355 AST(SGOT) 19 U/L 08/16/2017 Comp Metabolic Vhg364 ALT(SGPT) 24 U/L 08/16/2017 Comp Metabolic Hmj888 BILI T 1.1 mg/dL 08/16/2017 Comp Metabolic Obj535 ALBUMIN 4.2 g/dL 08/16/2017 Comp Metabolic Fla752 TPRO 7.2 g/dL 08/16/2017 Comp Metabolic Syg996 GLOB 3.0 g/dL 08/16/2017 Comp Metabolic Lpi651 A/G Ratio 1.4 Ratio 08/16/2017 Comp Metabolic Fwt264 Osmo 284 mOsmo 08/16/2017 %Hba1C Kdx266 % HbA1c 21022- 6 12.5 % 08/16/2017 %Hba1C Ubh949 Gluc Ave 312 mg/dL 08/16/2017 Urine Culture Ucult Preliminary NO Growth Day 1 06/23/2017 Urine Culture Ucult Complete NO Growth Day 2 06/23/2017 C RAP A SC [id number] Strep A Negative 06/08/2017 %Hba1C Tkx062 % HbA1c 27288- 6 9.5 % 05/04/2017 %Hba1C Nal924 Gluc Ave 226 mg/dL 05/04/2017 Tsh Ord6 [...] 31.7 pg 05/04/2017 Cbc With Differential Ord2 [place]% 8.5 % 05/04/2017 Cbc With Differential Ord2 [...] 2.48 K/ul 05/04/2017 Cbc With Differential Ord2 [place] ABS# 0.5 K/ul 05/04/2017 Cbc With Differential Ord2 Eos ABS# 0.1 K/ul 05/04/2017 Cbc With Differential Ord2 Baso ABS# 0.0 K/ul 05/04/2017 Comp Metabolic Wvr679 NA 135 mEq/L 05/04/2017 Comp Metabolic Bfq139 K 4.2 mEq/L 05/04/2017 Comp Metabolic Ccm041 CL 99 mEq/L 05/04/2017 Comp Metabolic Sgp690 CO2 26.0 mEq/L 05/04/2017 Comp Metabolic Owc058 ANION GAP 14 05/04/2017 Comp Metabolic Iwz621 GLUCOSE 277 mg/dL 05/04/2017 Comp Metabolic Qks074 Creat 0.9 mg/dL 05/04/2017 Comp Metabolic Jjd849 eGFR 96 ml/min/1.73m2 05/04/2017 Comp Metabolic Zfa545 BUN 23 mg/dL 05/04/2017 Comp Metabolic Hlk441 B/C Ratio 26.1 Ratio 05/04/2017 Comp Metabolic Gwg034 CALCIUM 8.9 mg/dL 05/04/2017 Comp Metabolic Aem544 ALK PHOS 81 U/L 05/04/2017 Comp Metabolic Wnw479 AST(SGOT) 21 U/L 05/04/2017 Comp Metabolic Pwu923 ALT(SGPT) 27 U/L 05/04/2017 Comp Metabolic Epg524 BILI T 1.2 mg/dL 05/04/2017 Comp Metabolic Jlg950 ALBUMIN 4.0 g/dL 05/04/2017 Comp Metabolic Uwu218 TPRO 6.7 g/dL 05/04/2017 Comp Metabolic Jdu017 GLOB 2.7 g/dL 05/04/2017 Comp Metabolic Bfo632 A/G Ratio 1.5 Ratio 05/04/2017 Comp Metabolic Vwg566 Osmo 284 mOsmo 05/04/2017 C A/B FLU [id number] Influenza A Scr Negative 02/16/2017 C A/B FLU [id number] Influenza B Scr Positive 02/16/2017 Cbc With [...] 30.3 pg 05/23/2016 Cbc With Differential Ord2 [place]% 8.8 % 05/23/2016 Cbc With Differential Ord2 [...] 2.07 K/ul 05/23/2016 Cbc With Differential Ord2 [place] ABS# 0.5 K/ul 05/23/2016 Cbc With Differential Ord2 Eos ABS# 0.1 K/ul 05/23/2016 Cbc With Differential Ord2 Baso ABS# 0.0 K/ul 05/23/2016 Lipid Ord30 CHOL 397 mg/dL 05/17/2016 Lipid Ord30 HDL 48.0 mg/dl 05/17/2016 Lipid Ord30 TRIG 578 mg/dL 05/17/2016 Lipid Ord30 LDL Unable to calculate Due to elevated triglycerides mg/dL 05/17/2016 Lipid Ord30 C/HDL 8.3 Ratio 05/17/2016 %Hba1C Ket140 % HbA1c 72290- 6 12.4 % 05/16/2016 %Hba1C Wvq592 Gluc Ave 309 mg/dL 05/16/2016 Cbc With [...] 30.4 pg 05/15/2016 Cbc With Differential Ord2 [place]% 7.8 % 05/15/2016 Cbc With Differential Ord2 [...] 2.04 K/ul 05/15/2016 Cbc With Differential Ord2 [place] ABS# 0.5 K/ul 05/15/2016 Cbc With Differential Ord2 Eos ABS# 0.1 K/ul 05/15/2016 Cbc With Differential Ord2 Baso ABS# 0.0 K/ul 05/15/2016 Tsh Ord6 hTSH II 1.70 uIU/mL 05/15/2016 Comp Metabolic Ndz396 NA 135 mEq/L 05/15/2016 Comp Metabolic Xkg386 K 3.9 mEq/L 05/15/2016 Comp Metabolic Nxg040 CL 96 mEq/L 05/15/2016 Comp Metabolic Rnh864 CO2 27.0 mEq/L 05/15/2016 Comp Metabolic Pmc172 ANION GAP 16 05/15/2016 Comp Metabolic Izb424 GLUCOSE 183 mg/dL 05/15/2016 Comp Metabolic Izw228 Creat 1.1 mg/dL 05/15/2016 Comp Metabolic Vtm701 eGFR 71 ml/min/1.73m2 05/15/2016 Comp Metabolic Ksc021 BUN 17 mg/dL 05/15/2016 Comp Metabolic Kqh547 B/C Ratio 14.9 Ratio 05/15/2016 Comp Metabolic Tbw710 CALCIUM 9.6 mg/dL 05/15/2016 Comp Metabolic Qqd906 ALK PHOS 100 U/L 05/15/2016 Comp Metabolic Lzq334 AST(SGOT) 20 U/L 05/15/2016 Comp Metabolic Xmi444 ALT(SGPT) 20 U/L 05/15/2016 Comp Metabolic Rlq718 BILI T 1.3 mg/dL 05/15/2016 Comp Metabolic Pqe167 ALBUMIN 4.6 g/dL 05/15/2016 Comp Metabolic Vzi235 TPRO 8.1 g/dL 05/15/2016 Comp Metabolic Els984 GLOB 3.5 g/dL 05/15/2016 Comp Metabolic Ypq928 A/G Ratio 1.3 Ratio 05/15/2016 Comp Metabolic Vxq764 Osmo 276 mOsmo 05/15/2016 Review of Systems [...] developed 04/14/2019 None Full Exam - General 1992 [...] Codes Date URINALYSIS NONAUTO W/O SCOPE CPT-4: 11561 02/17/2019 KETOROLAC TROMETHAMINE INJ CPT-4: J1885 10/21/2018 TRIAMCINOLONE ACET INJ NOS CPT-4: J3301 09/30/2018 THER/PROPH/DIAG INJ SC/IM CPT-4: 05865 09/11/2018 TRIAMCINOLONE ACET INJ NOS CPT-4: J3301 09/11/2018 IMMUNIZATION ADMIN CPT- 4: 03497 07/22/2018 FLU VAC NO PRSV 4 MENA 3 YRS+ CPT-4: 20000 07/22/2018 TRIAMCINOLONE ACET INJ NOS CPT-4: J3301 06/28/2018 KETOROLAC TROMETHAMINE INJ CPT-4: J1885 05/02/2018 FLU VAC NO PRSV 4 MENA 3 YRS+ CPT-4: 01893 08/16/2017 IMMUNIZATION ADMIN CPT- 4: 01974 08/16/2017 URINALYSIS NONAUTO W/O SCOPE CPT-4: 83176 06/21/2017 TRIAMCINOLONE ACET INJ NOS CPT-4: J3301 05/04/2017 THER/PROPH/DIAG INJ SC/IM CPT-4: 88813 05/04/2017 TRIAMCINOLONE ACET INJ NOS CPT-4: J3301 02/16/2017 ROCEPHIN, PER 250 MG CPT- 4: J0696 02/16/2017 ROCEPHIN, PER 250 MG CPT- 4: J0696 10/06/2016 URINALYSIS NONAUTO W/O SCOPE CPT-4: 17312 07/18/2016 TRIAMCINOLONE ACET INJ NOS CPT-4: J3301 01/20/2016 Vital Signs Date Vital 04/21/2019 Blood Pressure 1: 110/78 Code: 8480-6 Heart Rate 1: 98 bpm SpO2: 100% 04/18/2019 Blood Pressure 1: 98/78 Code: 8480-6 Heart Rate 1: 95 bpm SpO2: 98% 04/14/2019 Blood Pressure 1: 104/66 Code: 8480-6 BMI: 32.1 Code: 17855-7 Heart Rate 1: 93 bpm Height: 6'2" SpO2: 93% Weight: 250 lbs 04/08/2019 Blood Pressure 1: 92/60 Code: 8480-6 BMI: 33.0 Code: 01546- 5 Heart Rate 1: 114 bpm Height: 6'2" SpO2: 98% Weight: 257 lbs 04/03/2019 Blood Pressure 1: 126/70 Code: 8480-6 BMI: 33.0 Code: 30831-6 Heart Rate 1: 100 bpm Height: 6'2" SpO2: 97% Weight: 257 lbs 03/07/2019 Blood Pressure 1: 110/70 Code: 8480-6 BMI: 33.0 Code: 16743-1 Heart Rate 1: 112 bpm Height: 6'2" SpO2: 95% Weight: 257 lbs 02/27/2019 Blood Pressure 1: 110/80 Code: 8480-6 BMI: 33.0 Code: 50274-7 Heart Rate 1: 89 bpm Height: 6'2" SpO2: 95% Weight: 257 lbs 02/17/2019 Blood Pressure 1: 120/80 Code: 8480-6 Blood Pressure 2: 102/80 Code: 8480-6 Heart Rate 1: 89 bpm SpO2: 96% 01/13/2019 Blood Pressure 1: 120/70 Code: 8480-6 BMI: 34.2 Code: 87940-2 Heart Rate 1: 74 bpm Height: 6'2" SpO2: 96% Weight: 266 lbs 12/31/2018 Blood Pressure 1: 122/70 Code: 8480-6 BMI: 34.4 Code: 26575-5 Heart Rate 1: 90 bpm Height: 6'2" SpO2: 97% Temperature: 36.6 (C) / 97.8 (F) Weight: 268 lbs 12/26/2018 Blood Pressure 1: 118/72 Code: 8480-6 BMI: 34.4 Code: 76535-2 Heart Rate 1: 82 bpm Height: 6'2" SpO2: 98% Temperature: 36.6 (C) / 97.9 (F) Weight: 268 lbs 11/18/2018 Blood Pressure 1: 120/84 Code: 8480-6 BMI: 33.9 Code: 03006-9 Heart Rate 1: 77 bpm Height: 6'2" SpO2: 99% Temperature: 36.7 (C) / 98.1 (F) Weight: 264 lbs 11/12/2018 Blood Pressure 1: 138/76 Code: 8480-6 BMI: 33.9 Code: 08889-0 Heart Rate 1: 91 bpm Height: 6'2" SpO2: 99% Weight: 264 lbs 10/30/2018 Blood Pressure 1: 130/72 Code: 8480-6 BMI: 33.3 Code: 43582-6 Heart Rate 1: 83 bpm Height: 6'2" SpO2: 95% Temperature: 36.5 (C) / 97.7 (F) Weight: 259 lbs 10/24/2018 Blood Pressure 1: 130/70 Code: 8480-6 Heart Rate 1: 95 bpm Height: 6'2" SpO2: 96% 10/23/2018 Blood Pressure 1: 100/70 Code: 8480-6 Blood Pressure 2: 102/70 Code: 8480-6 BMI: 33.3 Code: 96512-5 Heart Rate 1: 106 bpm Height: 6'2" SpO2: 98% Weight: 259 lbs 10/21/2018 Blood Pressure 1: 140/90 Code: 8480-6 BMI: 32.9 Code: 87670-1 Heart Rate 1: 96 bpm Height: 6'2" SpO2: 92% Weight: 256 lbs 10/17/2018 Blood Pressure 1: 110/68 Code: 8480-6 BMI: 32.9 Code: 04906-4 Heart Rate 1: 82 bpm Height: 6'2" SpO2: 97% Weight: 256 lbs 10/14/2018 Blood Pressure 1: 124/70 Code: 8480-6 BMI: 33.6 Code: 99045-2 Heart Rate 1: 76 bpm Height: 6'2" SpO2: 99% Temperature: 36.3 (C) / 97.3 (F) Weight: 262 lbs 09/30/2018 Blood Pressure 1: 138/82 Code: 8480-6 BMI: 33.6 Code: 69630-6 Heart Rate 1: 82 bpm Height: 6'2" SpO2: 98% Temperature: 36.3 (C) / 97.3 (F) Weight: 262 lbs 09/09/2018 Blood Pressure 1: 140/80 Code: 8480-6 BMI: 33.0 Code: 60159-7 Heart Rate 1: 97 bpm Height: 6'2" SpO2: 93% Temperature: 36.8 (C) / 98.2 (F) Weight: 257 lbs 07/22/2018 Blood Pressure 1: 120/78 Code: 8480-6 BMI: 31.6 Code: 70334-8 Heart Rate 1: 87 bpm Height: 6'2" SpO2: 98% Weight: 246 lbs 07/16/2018 Blood Pressure 1: 132/74 Code: 8480-6 BMI: 31.2 Code: 07989-9 Heart Rate 1: 90 bpm Height: 6'2" SpO2: 96% Weight: 243 lbs 07/01/2018 Blood Pressure 1: 142/82 Code: 8480-6 BMI: 31.8 Code: 33600-7 Heart Rate 1: 88 bpm Height: 6'2" SpO2: 98% Weight: 248 lbs 06/28/2018 Blood Pressure 1: 13276 Code: 8480-6 BMI: 31.8 Code: 65894-3 Heart Rate 1: 107 bpm Height: 6'2" SpO2: 98% Temperature: 37.9 (C) / 100.3 (F) Weight: 248 lbs 06/18/2018 Blood Pressure 1: 138/82 Code: 8480-6 BMI: 31.8 Code: 89275-8 Heart Rate 1: 82 bpm Height: 6'2" SpO2: 97% Weight: 248 lbs 06/04/2018 Blood Pressure 1: 128/84 Code: 8480-6 BMI: 33.9 Code: 90877-1 Heart Rate 1: 86 bpm Height: 6'2" SpO2: 95% Weight: 264 lbs 05/13/2018 Blood Pressure 1: 130/80 Code: 8480-6 BMI: 31.1 Code: 61641-8 Heart Rate 1: 100 bpm Height: 6'2" SpO2: 94% Weight: 242 lbs 05/02/2018 Blood Pressure 1: 134/84 Code: 8480-6 BMI: 31.2 Code: 49212-8 Heart Rate 1: 93 bpm Height: 6'2" SpO2: 98% Weight: 243 lbs 04/29/2018 Blood Pressure 1: 142/88 Code: 8480-6 BMI: 31.6 Code: 90953-9 Heart Rate 1: 96 bpm Height: 6'2" SpO2: 96% Temperature: 36.7 (C) / 98.1 (F) Weight: 246 lbs 03/13/2018 Blood Pressure 1: 120/76 Code: 8480-6 BMI: 30.9 Code: 99246-6 Heart Rate 1: 112 bpm Height: 6'2" SpO2: 97% Weight: 241 lbs 03/07/2018 Blood Pressure 1: 108/78 Code: 8480-6 BMI: 30.0 Code: 55924-5 Heart Rate 1: 87 bpm Height: 6'2" SpO2: 98% Weight: 234 lbs 02/28/2018 Blood Pressure 1: 106/74 Code: 8480-6 BMI: 30.0 Code: 33976-6 Heart Rate 1: 101 bpm Height: 6'2" SpO2: 98% Temperature: 36.4 (C) / 97.5 (F) Weight: 234 lbs 02/13/2018 Blood Pressure 1: 11078 Code: 8480-6 BMI: 30.0 Code: 49917-6 Heart Rate 1: 106 bpm Height: 6'2" SpO2: 98% Weight: 234 lbs 01/29/2018 Blood Pressure 1: 10668 Code: 8480-6 BMI: 30.0 Code: 53172-9 Heart Rate 1: 108 bpm Height: 6'2" SpO2: 98% Weight: 234 lbs 08/27/2017 Blood Pressure 1: 134/76 Code: 8480-6 Heart Rate 1: 98 bpm Height: SpO2: 97% Weight: 08/16/2017 Blood Pressure 1: 128/80 Code: 8480-6 BMI: 32.0 Code: 07958-4 Heart Rate 1: 94 bpm Height: 6'2" [...] 1: 142/92 Code: 8480-6 BMI: 31.8 Code: 47664-2 Heart Rate 1: 102 bpm Height: 6'2" [...] 1: 122/72 Code: 8480-6 BMI: 31.8 Code: 80507-6 Heart Rate 1: 85 bpm Height: 6'2" SpO2: 96% Temperature: 36.6 (C) / 97.9 (F) Weight: 248 lbs 02/12/2017 Blood Pressure 1: 126/76 Code: 8480-6 BMI: 31.8 Code: 42063-7 Heart Rate 1: 106 bpm Height: 6'2" SpO2: 91% Weight: 248 lbs 02/05/2017 Blood Pressure 1: 146/86 Code: 8480-6 BMI: 31.9 Code: 98574-2 Heart Rate 1: 98 bpm Height: 6'2" SpO2: 87% Temperature: 36.7 (C) / 98.0 (F) Weight: 248 lbs 8 oz 01/29/2017 Blood Pressure 1: 132/84 Code: 8480-6 BMI: 31.8 Code: 42919-4 Heart Rate 1: 83 bpm Height: 6'2" SpO2: 97% Weight: 248 lbs 10/13/2016 Blood Pressure 1: 128/72 Code: 8480-6 Heart Rate 1: 86 bpm SpO2: 94% 10/09/2016 Blood Pressure 1: 128/68 Code: 8480-6 Heart Rate 1: 136 bpm SpO2: 94% Temperature: 36.8 (C) / 98.2 (F) 10/06/2016 Blood Pressure 1: 140/80 Code: 8480-6 BMI: 32.1 Code: 52853-8 Heart Rate 1: 94 bpm Height: 6'2" SpO2: 95% Weight: 250 lbs 07/18/2016 Blood Pressure 1: 128/86 Code: 8480-6 BMI: 32.1 Code: 26332-1 Heart Rate 1: 89 bpm Height: 6'2" SpO2: 96% Weight: 250 lbs 06/22/2016 Blood Pressure 1: 118/70 Code: 8480-6 BMI: 32.1 Code: 20004-2 Heart Rate 1: 70 bpm Height: 6'2" SpO2: 97% Weight: 250 lbs 05/23/2016 Blood Pressure 1: 128/80 Code: 8480-6 BMI: 32.1 Code: 25987-7 Heart Rate 1: 76 bpm Height: 6'2" SpO2: 98% Weight: 250 lbs 05/15/2016 Blood Pressure 1: 110/90 Code: 8480-6 BMI: 31.3 Code: 43524-1 Heart Rate 1: 111 bpm Height: 6'2" SpO2: 97% Temperature: 36.6 (C) / 97.8 (F) Weight: 244 lbs 01/20/2016 Blood Pressure 1: 128/76 Code: 8480-6 BMI: 33.0 Code: 92470-5 Heart Rate 1: 103 bpm Height: 6'2" SpO2: 95% Weight: 257 lbs Functional Status No Functional Status data History of Present Illness Symptom Name Status Result Effective Date Notes _ cardiac disease 04/14/2019 -chest pain on [...] 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 PATIENT, LEVEL III Diagnosis: Hypotension due to drugs[ICD10: I95.2] Melida Ha MD, [facility] CPT-4: 13356 04/14/2019 [id number] EST. PATIENT, LEVEL IV Diagnosis: Other fatigue[ICD10: R53.83] Diagnosis: Other malaise[ICD10: R53.81] Diagnosis: Anorexia[ICD10: R63.0] Diagnosis: Palpitations[ICD10: R00.2] Diagnosis: Weakness[ICD10: R53.1] Diagnosis: Dizziness and giddiness[ICD10: R42] Madeline Ha MD, [facility] CPT- 4: 09514 04/08/2019 ([id number]) 93049 EST. PATIENT, LEVEL III Diagnosis: Pain in left finger(s)[ICD10: M79.645] Diagnosis: Pain in left hand[ICD10: M79.642] Diagnosis: Contusion of left hand, initial encounter[ICD10: S60.222A] Diagnosis: Nasal congestion[ICD10: R09.81] Diagnosis: Headache[ICD10: R51] Melida Ha MD, [facility] CPT-4: 12450 04/03/2019 ([id number]) 29898 EST. PATIENT, LEVEL III Diagnosis: Essential (primary) hypertension[ICD10: I10] Marcela Ha MD, [facility] CPT-4: 09947 03/07/2019 ([id number]) 92894 EST. PATIENT, LEVEL III Diagnosis: Hypotension due to drugs[ICD10: I95.2] Marcela Ha MD, [facility] CPT-4: 29748 02/27/2019 ([id number]) 15348 EST. PATIENT, LEVEL III Diagnosis: Hypotension due to drugs[ICD10: I95.2] Diagnosis: Other fatigue[ICD10: R53.83] Marcela Ha MD, [facility] CPT-4: 80541 02/17/2019 ([id number]) 97048 EST. 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 PATIENT, LEVEL IV Diagnosis: Type 2 diabetes mellitus with hyperglycemia[ICD10: E11.65] Diagnosis: Epigastric pain[ICD10: R10.13] Diagnosis: Pain in joints of right hand[ICD10: M25.541] Diagnosis: Shortness of breath[ICD10: R06.02] Marcela Ha MD, [facility] CPT- 4: 49205 12/31/2018 [id number] EST. PATIENT, LEVEL III Diagnosis: Other chest pain[ICD10: R07.89] Diagnosis: Cough[ICD10: R05] Madeline Ha MD, [facility] CPT-4: 41389 12/26/2018 ([id number]) 78826 EST. PATIENT, LEVEL III Diagnosis: Cough[ICD10: R05] Melida Ha MD, [facility] CPT-4: 93131 11/18/2018 ([id number]) 83252 EST. PATIENT, LEVEL III Diagnosis: Cough[ICD10: R05] Diagnosis: Pneumonia due to other Gram-negative bacteria[ICD10: J15.6] Marcela Ha MD, [facility] CPT-4: 12312 11/12/2018 ([id number]) 89596 EST. PATIENT, LEVEL III Diagnosis: Pneumonia due to other Gram-negative bacteria[ICD10: J15.6] Diagnosis: Cough[ICD10: R05] Melida Ha MD, [facility] CPT-4: 31632 10/30/2018 ([id number]) 48298 EST. PATIENT, LEVEL II Diagnosis: Pain in joints of right hand[ICD10: M25.541] Diagnosis: Trigger finger, right middle finger[ICD10: M65.331] Marcela Ha MD, [facility] CPT-4: 91193 10/24/2018 ([id number]) 52857 EST. PATIENT, LEVEL IV Diagnosis: Essential (primary) hypertension[ICD10: I10] Diagnosis: Type 2 diabetes mellitus with foot ulcer[ICD10: E11.621] Melida Ha MD, [facility] CPT-4: 81272 10/23/2018 ([id number]) 18695 EST. PATIENT, LEVEL III Diagnosis: Cellulitis of right finger[ICD10: L03.011] Diagnosis: Type 2 diabetes mellitus with foot ulcer[ICD10: E11.621] Diagnosis: Pain in right hand[ICD10: M79.641] Melida Ha MD, [facility] CPT- 4: 37678 10/21/2018 48552 EST. PATIENT, LEVEL III Diagnosis: Spontaneous ecchymoses[ICD10: R23.3] Diagnosis: Cellulitis of right lower limb[ICD10: L03.115] Diagnosis: Cellulitis of left lower limb[ICD10: L03.116] Madeline Ha MD, [facility] CPT-4: 08418 10/17/2018 ([id number]) 74064 EST. PATIENT, LEVEL III Diagnosis: Cough[ICD10: R05] Diagnosis: Acute bronchitis, unspecified[ICD10: J20.9] Melida Ha MD, [facility] CPT-4: 93109 10/14/2018 00571 EST. PATIENT, LEVEL III Diagnosis: Acute laryngopharyngitis[ICD10: J06.0] Diagnosis: Cough[ICD10: R05] Madeline Ha MD, [facility] CPT-4: 71442 09/30/2018 ([id number]) 57664 EST. PATIENT, LEVEL III Diagnosis: Acute recurrent maxillary sinusitis[ICD10: J01.01] Diagnosis: Cough[ICD10: R05] Diagnosis: Type 2 diabetes mellitus with hyperglycemia[ICD10: E11.65] Marcela Ha MD, [facility] CPT-4: 53546 09/09/2018 ([id number]) 54152 EST. PATIENT, LEVEL IV Diagnosis: Essential (primary) hypertension[ICD10: I10] Diagnosis: Mixed hyperlipidemia[ICD10: E78.2] Diagnosis: Bipolar disorder, current episode depressed, moderate[ICD10: F31.32] Diagnosis: Type 2 diabetes mellitus with other specified complication[ICD10: E11.69] Melida Ha MD, [facility] CPT-4: 42531 07/22/2018 ([id number]) 16628 EST. PATIENT, LEVEL III Diagnosis: Insomnia due to medical condition[ICD10: G47.01] Marcela Ha MD [facility] CPT-4: 97540 07/16/2018 ([id number]) Miscellaneous no charge Diagnosis: Cough[ICD10: R05] Madeline Ha MD, [facility] CPT-4: 80419 07/01/2018 00527 EST. PATIENT, LEVEL III Diagnosis: Cough[ICD10: R05] Diagnosis: Acute laryngopharyngitis[ICD10: J06.0] Diagnosis: Other allergic rhinitis[ICD10: J30.89] aMdeline Ha MD, [facility] CPT- 4: 80958 06/28/2018 ([id number]) 92635 EST. PATIENT, LEVEL IV Diagnosis: Type 2 diabetes mellitus with hyperglycemia[ICD10: E11.65] Diagnosis: Essential (primary) hypertension[ICD10: I10] Melida Ha MD, [facility] CPT-4: 63792 06/18/2018 ([id number]) 13642 EST. PATIENT, LEVEL IV Diagnosis: Type 2 diabetes mellitus with hyperglycemia[ICD10: E11.65] Diagnosis: Essential (primary) hypertension[ICD10: I10] Diagnosis: Localized edema[ICD10: R60.0] Melida Ha MD, [facility] CPT-4: 96755 06/04/2018 ([id number]) 51386 EST. PATIENT, LEVEL III Diagnosis: Type 2 diabetes mellitus with hyperglycemia[ICD10: E11.65] Diagnosis: Myalgia[ICD10: M79.1] Diagnosis: Pain in right hip[ICD10: M25.551] Diagnosis: Pain in left hip[ICD10: M25.552] Marcela Ha MD, [facility] CPT- 4: 64301 05/13/2018 ([id number]) 14500 EST. PATIENT, LEVEL III Diagnosis: Myalgia[ICD10: M79.1] Diagnosis: Pain in right hip[ICD10: M25.551] Diagnosis: Pain in left hip[ICD10: M25.552] Marcela Ha MD, [facility] CPT- 4: 85864 05/02/2018 ([id number]) 86511 EST. PATIENT, LEVEL IV Diagnosis: Essential (primary) hypertension[ICD10: I10] Diagnosis: Type 2 diabetes mellitus with hyperglycemia[ICD10: E11.65] Diagnosis: Major depressive disorder, single episode, moderate[ICD10: F32.1] Diagnosis: Myalgia[ICD10: M79.1] Marcela Ha MD, [facility] CPT-4: 93405 04/29/2018 ([id number]) 70705 EST. PATIENT, LEVEL IV Diagnosis: Type 2 diabetes mellitus with hyperglycemia[ICD10: E11.65] Diagnosis: Essential (primary) hypertension[ICD10: I10] Diagnosis: Major depressive disorder, single episode, moderate[ICD10: F32.1] Melida Ha MD, [facility] CPT-4: 08129 03/13/2018 ([id number]) 70653 EST. PATIENT, LEVEL III Diagnosis: Type 2 diabetes mellitus with hyperglycemia[ICD10: E11.65] Diagnosis: Bipolar disorder, current episode depressed, moderate[ICD10: F31.32] Diagnosis: Orthostatic hypotension[ICD10: I95.1] Marcela Ha MD, [facility] CPT-4: 70944 03/07/2018 ([id number]) 84669 EST. PATIENT, LEVEL IV Diagnosis: Type 2 diabetes mellitus with hyperglycemia[ICD10: E11.65] Diagnosis: Major depressive disorder, single episode, moderate[ICD10: F32.1] Diagnosis: Orthostatic hypotension[ICD10: I95.1] Diagnosis: Other fatigue[ICD10: R53.83] Marcela Ha MD, [facility] CPT-4: 68177 02/28/2018 22721 EST. PATIENT, LEVEL IV Diagnosis: Other fatigue[ICD10: R53.83] Diagnosis: Other malaise[ICD10: R53.81] Diagnosis: Gastro-esophageal reflux disease without esophagitis[ICD10: K21.9] Madeline Ha MD, [facility] CPT-4: 27843 02/13/2018 ([id number]) 44652 EST. PATIENT, LEVEL IV Diagnosis: Type 2 diabetes mellitus with foot ulcer[ICD10: E11.621] Diagnosis: Essential (primary) hypertension[ICD10: I10] Diagnosis: Gastro-esophageal reflux disease without esophagitis[ICD10: K21.9] Marcela Ha MD, [facility] CPT-4: 08936 01/29/2018 64090 EST. PATIENT, LEVEL III Diagnosis: Other malaise[ICD10: R53.81] Diagnosis: Other fatigue[ICD10: R53.83] Diagnosis: Pain in right shoulder[ICD10: M25.511] Diagnosis: Pain in left shoulder[ICD10: M25.512] Madeline Ha MD, [facility] CPT- 4: 72011 08/27/2017 ([id number]) 92199 EST. PATIENT, LEVEL IV Diagnosis: Essential (primary) hypertension[ICD10: I10] Diagnosis: Type 2 diabetes mellitus with hyperglycemia[ICD10: E11.65] Diagnosis: VACCIN FOR INFLUENZA[ICD10: Z23] Melida Ha MD, [facility] CPT-4: 67440 08/16/2017 [id number] EST. PATIENT, LEVEL III Diagnosis: Zoster without complications[ICD10: B02.9] Madeline Ha MD, [facility] CPT-4: 49952 07/26/2017 ([id number]) 16651 EST. PATIENT, LEVEL III Diagnosis: Cellulitis of right lower limb[ICD10: L03.115] Marcela Ha MD, [facility] CPT-4: 51847 07/03/2017 [id number] EST. PATIENT, LEVEL II Diagnosis: Laceration without foreign body of left forearm, initial encounter[ICD10: S51.812A] Marcela Ha MD, [facility] CPT-4: 32683 06/29/2017 ([id number]) 98371 EST. PATIENT, LEVEL III Diagnosis: Cellulitis of right lower limb[ICD10: L03.115] Diagnosis: Type 2 diabetes mellitus with foot ulcer[ICD10: E11.621] Marcela Ha MD, [facility] CPT-4: 85064 06/18/2017 ([id number]) 44648 EST. PATIENT, LEVEL IV Diagnosis: Cellulitis of right lower limb[ICD10: L03.115] Diagnosis: Acute laryngopharyngitis[ICD10: J06.0] Diagnosis: Gastro-esophageal reflux disease without esophagitis[ICD10: K21.9] Marcela Ha MD, [facility] CPT-4: 68776 06/07/2017 ([id number]) 61291 EST. PATIENT, LEVEL III Diagnosis: Type 2 diabetes mellitus with hyperglycemia[ICD10: E11.65] Diagnosis: Insect bite (nonvenomous) of abdominal wall, initial encounter[ICD10: S30.861A] Marcela Ha MD, [facility] CPT-4: 43282 05/17/2017 ([id number]) 90685 EST. PATIENT, LEVEL III Diagnosis: Allergic contact dermatitis due to plants, except food[ICD10: L23.7] Melida Ha MD, [facility] CPT-4: 22484 05/04/2017 ([id number]) 84509 EST. PATIENT, LEVEL III Diagnosis: Essential (primary) hypertension[ICD10: I10] Marcela Ha MD, [facility] CPT-4: 03458 03/15/2017 ([id number]) 35216 EST. PATIENT, LEVEL III Diagnosis: Cough[ICD10: R05] Diagnosis: Essential (primary) hypertension[ICD10: I10] Marcela Ha MD, [facility] CPT-4: 61150 03/01/2017 ([id number]) 99927 EST. PATIENT, LEVEL III Diagnosis: Cough[ICD10: R05] Diagnosis: Nasal congestion[ICD10: R09.81] Diagnosis: Acute recurrent maxillary sinusitis[ICD10: J01.01] Marcela Ha MD, [facility] CPT-4: 57530 02/16/2017 ([id number]) 55166 EST. PATIENT, LEVEL III Diagnosis: Type 2 diabetes mellitus with hyperglycemia[ICD10: E11.65] Marcela Ha MD, [facility] CPT-4: 94952 02/12/2017 ([id number]) 75313 EST. PATIENT, LEVEL IV Diagnosis: Type 2 diabetes mellitus with hyperglycemia[ICD10: E11.65] Diagnosis: Muscle weakness (generalized)[ICD10: M62.81] Diagnosis: Disorientation, unspecified[ICD10: R41.0] Marcela Ha MD, [facility] CPT-4: 65504 02/05/2017 ([id number]) Patient admitted to the hospital from clinic (NO CHARGE) Diagnosis: Type 2 diabetes mellitus with hyperglycemia[ICD10: E11.65] Diagnosis: Disorientation, unspecified[ICD10: R41.0] Diagnosis: Muscle weakness (generalized)[ICD10: M62.81] Marcela Ha MD, [facility] CPT-4: 65591C 01/29/2017 ([id number]) Miscellaneous no charge Diagnosis: Cellulitis of right lower limb[ICD10: L03.115] Marcela Ha MD, [facility] CPT-4: 77173 10/13/2016 ([id number]) Miscellaneous no charge Diagnosis: Type 2 diabetes mellitus with foot ulcer[ICD10: E11.621] Diagnosis: Pain in right foot[ICD10: M79.671] Marcela Ha MD, [facility] CPT- 4: 79835 10/09/2016 08488 EST. PATIENT, LEVEL II Diagnosis: Cellulitis of right lower limb[ICD10: L03.115] Marcela Ha MD, [facility] CPT-4: 00665 10/06/2016 ([id number]) 45954 EST. PATIENT, LEVEL IV Diagnosis: Low back pain[ICD10: M54.5] Diagnosis: Other deformities of toe(s) (acquired), left foot[ICD10: M20.5X2] Diagnosis: Type 2 diabetes mellitus with foot ulcer[ICD10: E11.621] Marcela Ha MD, [facility] CPT-4: 24122 07/18/2016 ([id number]) 37883 EST. PATIENT, LEVEL III Diagnosis: Type 2 diabetes mellitus with hyperglycemia[ICD10: E11.65] Marcela Ha MD, [facility] CPT-4: 41017 06/22/2016 ([id number]) 34475 EST. 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 PATIENT, LEVEL IV Diagnosis: Type 2 diabetes mellitus with other specified complication[ICD10: E11.69] Diagnosis: Dehydration[ICD10: E86.0] [facility] CPT-4: 88827 05/15/2016 ([id number]) OFFICE VISIT, NEW - LEVEL 3 Diagnosis: Allergic contact dermatitis due to plants, except food[ICD10: L23.7] [facility] CPT-4: 06370 01/20/2016 Plan of Care Planned Activity Notes Codes Status Date Patient Education: Patient Medication Summary Completed 04/21/2019 [...] blood pressure. 04/14/2019 Appointment[facility] (15 min) Moderate 04/14/2019 Patient Education: Patient Medication Summary Completed 04/14/2019 Visit Plan: Fatigue, malaise, no appetitie, dizziness, palpitations, near syncope - discussed with Dr. Ha - will send for IV fluids and set up an event monitor - pt is to notify clinic if symptoms do not improve, if they worsen, or with any changes, questions, or concerns. 04/08/2019 Appointment: [facility] (30 min) Complex 04/08/2019 Patient Education: Patient [...] sinus congestion. 04/03/2019 Appointment: Melida Ha WPtel: [address] [place], [place] [phone] (15 min) Moderate 04/03/2019 Patient Education: Patient Medication Summary Completed 04/03/2019 Care Plan: X-RAY EXAM OF HAND LOINC : 42460-9 Pending 04/03/2019 Appointment: Marcela Oshea WPtel: [address] [place], [place] [phone] [place] [address] (30 min) Complex 03/14/2019 Visit Plan: HTN -heart rate not well controlled -decrease valsartan -start metoprolol 25mg daily -return next week for blood pressure check -10 days for appt -discussed scheduling f/u appt with Dr Brennan as well -patient verbalized understanding of plan. 03/07/2019 Appointment: Marcela Oshea WPtel: [address] [place], [place] [phone] [place] [address] (30 min) Complex 03/07/2019 Patient Education: Patient [...] any concerns 02/27/2019 Appointment: Marcela Oshea WPtel: [address] [place], [place] [phone] (30 min) Complex 02/27/2019 Patient Education: Patient Medication Summary Completed 02/27/2019 Visit Plan: Orthostasis -decrease coreg -monitor symptoms and follow up in 10 days- sooner if needed Fatigue-check labs 02/17/2019 Appointment: Marcela Oshea WPtel: [address] [place], [place] [phone] (30 min) Complex 02/17/2019 Patient Education: Patient Medication Summary Completed 02/17/2019 Appointment: Marcela Oshea WPtel: [phone] (30 min) Complex 01/14/2019 Visit Plan: Hypertension [...] Summary Completed 01/13/2019 Appointment: Marcela Oshea WPtel: [phone] (30 min) Complex 01/10/2019 Visit Plan: Epigastric pain -start protonix daily- monitor symptoms Chest pain -work up negative done last week with Madeline-recommend appt with Dr Brennan Joint pain-check inflammation makers DM-check Hgb a1c 12/31/2018 Appointment: Marcela Oshea WPtel: [phone] (15 min) Moderate 12/31/2018 Patient Education: Patient Medication Summary Completed 12/31/2018 Visit Plan: chest pain - EKG and cardiac enzymes OK - discussed with Dr. Ha - will treat for pneumonia - pt is to notify clinic if symptoms do not improve, if they worsen, or with any changes questions, or concerns. 12/26/2018 Appointment: Madeline Kennedy WPtel: [address] [place], [place] [address] (30 min) Complex 12/26/2018 Patient Education: Patient Medication Summary Completed 12/26/2018 Referral: Andrew Cross Patient informed. Referral info faxed. Completed 11/26/2018 Visit Plan: cough - improved - continue with inhalers - continue with symbicort - rx for proair for PRN use when pt is feelign short of breath with activity. 11/18/2018 Appointment: Melida Ha WPtel: [address] [place], [place] [email or web address]] (15 min) Moderate 11/18/2018 Patient Education: Patient [...] of plan. 11/12/2018 Appointment: Marcela Oshea WPtel: [phone] [place] (30 min) Complex 11/12/2018 Patient Education: Patient Medication Summary Completed 11/12/2018 Patient Education: Symbicort - 18-64 - eCopay Completed 11/12/2018 Care Plan: Referral Order SNOMED-CT : 947256728 Pending 11/12/2018 Referral: Niko Mantilla Referral Completed 11/04/2018 Visit Plan: Pneumonia, cough - recent diagnosis of Moraxella Cattharalis - with sensitivity to levaquin - will give 2 wks of levaquin since he had improvement but no full resolution of symptoms. 10/30/2018 Appointment: Melida Ha WPtel: [address] [place], [place] [address] 30 min appointments only in this slot 10/30/2018 Patient Education: Patient Medication Summary Completed 10/30/2018 Visit Plan: Right hand-joint pain and swelling -negative for gout -treated for cellulitis right 2nd mcp joint -now having difficulty with long finger "locking" -Dr Ha in to evaluate patient and tape index and long finger in place-refer to Dr Mantilla for evaluation 10/24/2018 Appointment: Marcela Oshea WPtel: [address] [place], [place] [phone] (30 min) Complex 10/24/2018 Patient Education: Patient Medication Summary Completed 10/24/2018 Care Plan: Referral Order SNOMED-CT : 914270981 Pending 10/24/2018 Visit Plan: Hypotension - discussed [...] controlled. 10/23/2018 Appointment: Melida Ha [facility]Ptel[phone] (15 min) Moderate 10/23/2018 Patient Education: [...] and plan. 10/21/2018 Appointment: Marcela Oshea WPtel: [facility] [address] (30 min) Complex 10/21/2018 Patient Education: [...] discharge. 10/17/2018 Appointment: Madeline Kennedy WPtel: [address] [place] [address] (15 min) Moderate 10/17/2018 Patient Education: Patient [...] acutely worsen. 10/14/2018 Appointment: Marcela Oshea WPtel: [phone] (15 min) Moderate 10/14/2018 Patient Education: Patient Medication Summary Completed 10/14/2018 Care Plan: CHEST X-RAY 2VW FRONTAL&LATL LOINC : 73420-6 Pending 10/14/2018 Visit Plan: URI - Pt [...] allergy spray. 09/30/2018 Appointment: Madeline Kennedy WPtel: [address] [place], [place] [phone] (15 min) Moderate 09/30/2018 Patient Education: Patient [...] Hgb A1C 09/09/2018 Appointment: Marcela Oshea WPtel: [address] [place], [place] [phone] (15 min) Moderate 09/09/2018 Patient Education: Patient Medication Summary Completed 09/09/2018 Patient Education: Patient Medication Summary Completed 09/06/2018 Patient Education: Cholesterol Management Completed 09/06/2018 Care Plan: Comp Metabolic Pending 09/06/2018 Care Plan: Cbc With Differential Pending 09/06/2018 Care Plan: %Hba1C LOINC : 49953-6 Pending 09/06/2018 Care Plan: Tsh Pending 09/06/2018 Care Plan: Lipid Pending 09/06/2018 Appointment: Marcela Oshea WPtel: [address] [place], [place] [phone] (15 min) Moderate 08/26/2018 Appointment: Marcela Oshea WPtel: [address] [place], [place] [phone] (15 min) Moderate 08/23/2018 Visit Plan: Hypertension [...] 07/22/2018 Appointment: [facility] Ha [facility]Ptel[phone] (15 min) Moderate 07/22/2018 Patient Education: [...] insomnia. 07/16/2018 Appointment: Marcela Oshea WPtel: [phone] [phone] (30 min) Complex 07/16/2018 Patient Education: Patient Medication Summary Completed 07/16/2018 Visit Plan: cough - improved - notify clinic if symptoms do not completely resolve, or with any questions or concerns. 07/01/2018 Appointment: Mad[facility] Kennedy [facility]Ptel[phone] (15 min) Moderate 07/01/2018 Patient Education: [...] spray. 06/28/2018 Appointment: Mad[facility] Kennedy [facility]Ptel[phone] [facility] (15 min) Moderate 06/28/2018 Patient Education: [...] home. 06/18/2018 Appointment: Melida Ha [facility]Ptel[phone] (15 min) Moderate 06/18/2018 Patient Education: [...] improves. 06/04/2018 Appointment: Melida Ha [facility]Ptel[phone] [facility] (15 min) Moderate 06/04/2018 Patient Education: [...] allow for greater blood glucose control. Joint honf-gpnssjjp-woqjxgi-symptoms have improved -stop meloxicam due to upset stomach-call if symptoms return 05/13/2018 Appointment: Marcela Oshea WPtel: [phone] (30 min) Complex 05/13/2018 Patient Education: Patient Medication Summary Completed 05/13/2018 Visit Plan: Bilateral hip ihap-lboyaios-rlmtanp IM injection administered today for c/o continued myalgia/arthralgia. Patient to start taking Meloxicam 15mg PO daily. Advised to return to clinic if symptoms do not improve. 05/02/2018 Appointment: Marcela Oshea WPtel: [address] [place], [place] [phone] (30 min) Complex 05/02/2018 Patient Education: Patient [...] readings at home. Diabetes Mellitus -check labs Bclcycwg-ksvzgmw-dogd bite-rx for doxycycline-follow up in 2 weeks 04/29/2018 Appointment: Marcela Oshea WPtel: [address] [place], [place] [phone] (15 min) Moderate 04/29/2018 Patient Education: Patient Medication Summary Completed 04/29/2018 Appointment: Melida Ha WPtel: [address] [place], [place] [email or web address] (15 min) Moderate 04/15/2018 Appointment: Marcela Oshea WPtel: [address] [place], [place] [phone] (30 min) Complex 03/21/2018 Visit Plan: Hypertension [...] cymbalta 03/13/2018 Appointment: Melida Ha WPtel: [phone] [facility] (30 min) Complex 03/13/2018 Patient Education: Patient Medication Summary Completed 03/13/2018 Visit Plan: DM-continue same medications-monitor blood sugars routinely as directed -rx for new glucometer and test strips provided Bipolar- currently depressed-patient start on vraylar-follow up in 2 weeks, sooner if needed. Patient and verbalied understanding of plan. Hypotension-stay off losartan 03/07/2018 Appointment: Marcela Oshea WPtel: [phone] [phone] (30 min) Complex 03/07/2018 Patient Education: Patient Medication Summary Completed 03/07/2018 Appointment: Melida Ha [facility]Ptel[phone] (15 min) Moderate 03/04/2018 Visit Plan: [...] patient. 02/28/2018 Appointment: [facility]Ptel[phone] (30 min) Complex 02/28/2018 Patient Education: [...] improving. 02/13/2018 Appointment: Madeline Kennedy [facility]Ptel[phone] [facility] (15 min) Moderate 02/13/2018 Patient Education: Patient Medication Summary Completed 02/13/2018 Referral: Sun Glynn Patient informed. Referral info faxed. Completed 02/01/2018 Visit Plan: DM-weight loss-not checking blood sugars-patient sent for labs today HTN-low svbus-dzqzued-vaynw labs Callus of foot and fissue of heel-refer to Dr Glynn for evaluation Esophageal Reflux - the patient has been counseled against excessive intake of caffeine, spicy foods, peppermint, and cinnamon - all of which can exacerbate esophageal reflux. The patient is to take medications as prescribed and call the office if the symptoms are not improving. 01/29/2018 Appointment: Marcela Oshea WPtel: [phone] [phone] (30 min) Complex 01/29/2018 Patient Education: Patient Medication Summary Completed 01/29/2018 Care Plan: Comp Metabolic Cancelled 01/29/2018 Care Plan: Cbc With Differential Cancelled 01/29/2018 Care Plan: %Hba1C LOINC : 93348-7 Cancelled 01/29/2018 Care Plan: Referral Order SNOMED-CT : [id number] Cancelled 01/29/2018 Visit Plan: Fatigue, malaise, joint [...] or concerns. 08/27/2017 Appointment: Madeline Kennedy WPtel: [facility] (15 min) Moderate 08/27/2017 Patient Education: [...] today - 08/16/2017 Appointment: Melida Ha WPtel: [facility] (30 min) Complex 08/16/2017 Patient Education: Patient Medication Summary Completed 08/16/2017 Patient Education: Obesity Completed 08/16/2017 Appointment: Madeline Kennedy WPtel: [facility] (30 min) Complex 08/07/2017 Visit Plan: [...] considered contagious. 07/26/2017 Appointment: Madeline Kennedy WPtel: [facility] (15 min) Moderate 07/26/2017 Patient Education: Patient Medication Summary Completed 07/26/2017 Visit Plan: Cellulitis right foot-cultured today in the office- home health to reapply wound vac--appt with wound care on to evaluate for debridement- 07/03/2017 Appointment: Marcela Oshea WPtel: [phone] (30 min) Complex 07/03/2017 Patient Education: Patient Medication Summary Completed 07/03/2017 Visit Plan: Abrasion left arm - Pt was instructed to keep the wound clean, wash with antibacterial soap, use triple antibiotic ointment, call if redness, pustular drainage, or any other acute concerns. 06/29/2017 Appointment: Marcela Oshea WPtel: [phone] (15 min) Moderate 06/29/2017 Patient Education: [...] of plan. 06/18/2017 Appointment: Marcela Oshea WPtel: [phone] (15 min) Moderate 06/18/2017 Patient Education: [...] prilosec 06/07/2017 Appointment: Marcela Oshea WPtel: [address] [place], [place] [phone] (10 min) Simple 06/07/2017 Patient Education: Patient [...] bite-continue doxycycline 05/17/2017 Appointment: Marcela Oshea WPtel: [phone] (30 min) Complex 05/17/2017 Patient Education: [...] [facility] 05/04/2017 Appointment: Marcela Oshea WPtel: [phone] [place] (30 min) Complex 05/04/2017 Patient Education: [...] home. Cough-resolved 03/15/2017 Appointment: Marcela Oshea WPtel: [address] [place] [address] (15 min) Moderate 03/15/2017 Patient Education: Patient Medication Summary Completed 03/15/2017 Appointment: Marcela Oshea WPtel: [address] (30 min) Complex 03/12/2017 Visit Plan: Feng [...] as discussed 02/16/2017 Appointment: Marcela Oshea WPtel: [phone] (15 min) Moderate 02/16/2017 Patient Education: [...] less controlled. 02/12/2017 Appointment: Marcela Oshea WPtel: [facility] [address] (30 min) Complex 02/12/2017 Patient Education: Patient Medication Summary Completed 02/12/2017 Appointment: Marcela Oshea WPtel: [phone] (30 min) Complex 02/06/2017 Visit Plan: [...] readings are starting to become less controlled. Nnjxivydj-jagfnuiv-jiksepiw to monitor Generalized weakness-refer for PT-patient refuses today but will consider 02/05/2017 Appointment: Marcela Oshea WPtel: [phone] (30 min) Complex 02/05/2017 Patient Education: Patient Medication Summary Completed 02/05/2017 Appointment: Marcela Oshea WPtel: [address] [place] [phone] (30 min) Complex 01/30/2017 Visit Plan: Acute confusion-uncontrolled diabetes-chronically noncompliant with treatment and stopped his insulin several months ago-r/o stroke vs DKA-Dr Ha in to evaluate patient-plan to admit for further work up and treatment-patient's called and she transported him to the hospital 01/29/2017 Appointment: Marcela Oshea WPtel: [phone] (30 min) Complex 01/29/2017 Patient Education: Patient Medication Summary Completed 01/29/2017 Patient Education: Obesity Completed 01/29/2017 Visit Plan: Right foot pain-MRI shows foreign body-appt with Dr Grewal for evaluation on Sunday. 10/13/2016 Appointment: Marcela Oshea WPtel: [phone] [place] (15 min) Moderate 10/13/2016 Patient Education: Patient Medication Summary Completed 10/13/2016 Appointment: Marcela Oshea WPtel: [address] [place], [place] [phone] [place] (30 min) Complex 10/12/2016 Visit Plan: Right foot qsjw-wqbmenqy-zvpsp washer dropped on foot-xray negative but pain continues to increase-recommend MRI of foot for further evaluation-refer to wound care for lesions on right foot, patient has diabetes and history of osteomyelitis-culture obtained today-continue oral abx- follow up in the office on , sooner if needed 10/09/2016 Visit Plan: Right foot zfhc-jotdafse-cwubf washer dropped on foot-xray negative but pain continues to increase-recommend MRI of foot for further evaluation-refer to wound care for lesions on right foot, patient has diabetes and history of osteomyelitis-culture obtained today-continue oral abx- follow up in the office on , sooner if needed 10/09/2016 Visit Plan: Right foot rdii-qcktfkqf-nxkrd washer dropped on foot-xray negative but pain continues to increase-recommend MRI of foot for further evaluation-refer to wound care for lesions on right foot, patient has diabetes and history of osteomyelitis-culture obtained today-continue oral abx- follow up in the office on , sooner if needed 10/09/2016 Appointment: Marcela Oshea WPtel: [address] [place], [place] [phone] [place] (30 min) Complex 10/09/2016 Patient Education: Patient Medication Summary Completed 10/09/2016 Visit Plan: Cellulitis - continue with oral antibiotics as previously directed, return to clinic as previously directed, call for acute change in symptoms, worsening redness, warmth, discharge. 10/06/2016 Appointment: Marcela Oshea WPtel: [address] [place], [place] [phone] [place] (10 min) Simple 10/06/2016 Patient Education: Patient Medication Summary Completed 10/06/2016 Appointment: Marcela Oshea WPtel: [address] [place], [place] [phone] [place] (30 min) Complex 08/24/2016 Referral: Sun Glynn Referral Completed 07/21/2016 Visit Plan: Low back pain- history of spinal fusion-patient for xray lumbar spine-RX sent to [facility] and instructed on use- topical voltaren samples provided and instructed on use. Ok to use tylenol as n eeded as well. The patient is to call the office if the pain is worsening or does not improve. Pressure ulcer left 4th toe-refer to Dr Glynn for evaluation 07/18/2016 Appointment: Marcela Oshea WPtel: [phone] [phone] (30 min) Complex 07/18/2016 Patient Education: Patient Medication Summary Completed 07/18/2016 Patient Education: Obesity Completed 07/18/2016 Care Plan: Referral Order SNOMED-CT : [id number] Cancelled 07/18/2016 Visit Plan: Diabetes Mellitus - [...] glucose control. 06/22/2016 Appointment: Marcela Oshea WPtel: [phone] (30 min) Complex 06/22/2016 Patient Education: [...] today 05/23/2016 Appointment: Marcel[facility] Oshea WPtel: [phone] (30 min) Complex 05/23/2016 Patient Education: [...] plan. 05/15/2016 Appointment: Marcela Oshea WPtel: [phone] (15 min) Moderate 05/15/2016 Patient Education: [...] Referral: Niko Mantilla Referral Appointment Requested Referral: Anderw Cross Referral Appointment Requested Referral: Sun Glynn Referral Initiated Referral: Sun Glynn Referral Appointment Requested Instructions Comment REPEAT LABS BEFORE YOUR NEXT APPOINTMENT IN [...] blood glucose control. Elevated Hgb-check CBC today decrease topamax to one time daily x [...] Use OTC allergy medication for sinus congestion. . Mild ecchymosis with faint erythema - [...] in place-refer to Dr Mantilla for evaluation HOLD COREG FOLLOW UP IN 2 WEEKS [...] symptoms and call with any concerns . Diabetes Mellitus - controlled - per [...] with Dr Grewal for evaluation on Sunday. 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 Low back pain- history of spinal fusion-patient for xray lumbar spine-RX sent to [facility] and instructed on use-topical voltaren samples [...] goo called into [facility]. . 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 Fatigue, malaise, no appetitie, dizziness, palpitations, near [...] for fracture from injury . Right foot iogo-tplhumwp-uvspn washer dropped on foot-xray negative but pain [...] for fracture from injury . Right foot dpbm-ypoefasu-wandi washer dropped on foot-xray negative but pain [...] for fracture from injury . Right foot qspt-kyigmego-etsxo washer dropped on foot-xray negative but pain [...] if needed Fatigue-check labs . Bilateral hip subz-ygpyxpzx-kyxldav IM injection administered today for c/o continued myalgia/arthralgia. Patient to start taking Meloxicam 15mg PO daily. Advised to return to clinic if symptoms do not improve. . DM-weight loss-not checking blood sugars-patient sent for labs today HTN-low sfroo-xujorky-buiaw labs Callus of foot and fissue of [...] readings are starting to become less controlled. Tcmyylzcb-anprmhdg-dvyywtbw to monitor Generalized weakness-refer for PT-patient refuses [...] allow for greater blood glucose control. Joint lcke-wbhgtkmp-kqygrfn-symptoms have improved -stop meloxicam due to upset [...] readings at home. Diabetes Mellitus -check labs Vreefllk-xoexjbg-nifm bite-rx for doxycycline-follow up in 2 weeks [...] or with any changes, questions, or concerns. METOPROLOL XL 25MG DAILY IN THE EVENING TO HELP WITH YOUR HEART RATE STOP THE 80MG 1/2 TAB VALSARTAN -I SENT IN A LOWER DOSE DECREASE VALSARTAN TO 40MG 1/2 PILL DAILY FOLLOW UP APPOINTMENT WITH YOUR PHYSICAL EDUCATION PROFESSOR. HTN -heart rate not well controlled -decrease [...]
--- OUTSIDE RECORDS SUMMARY | 2019-04-24 14:15 | XMS REPORT | CCD ---
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 Name Role Phone PP Unavailable CCM Unavailable Summary Purpose Interface Exchange Insurance Providers Payer name Policy type / Coverage type Covered green party ID Effective Begin Date Effective End Date [place] Niko Niko Commercial Insurance [id number] 2018 Unknown Family history Father Diagnosis Age At Onset Hyperlipidemia Unknown Heart Attack Unknown Mother Diagnosis Age At Onset Hypertension Unknown Social History Social History Element Codes Description Effective Dates Marital status Unknown Mignon 01/20/2016 Number of children Unknown 4 01/20/2016 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/[address]: 762061236 Never smoker 01/20/[address]: 347430221 Never drinks alcohol 01/20/2016 Allergies, Adverse Reactions, [...] ICD-9: 401.1 ICD-10: I10 Active 03/01/2017 Unknown 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 [...] hypertension ICD-9: 401.1 ICD-10: I10 03/01/2017 Active 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 [...] aspart 100 unit/mL (3 mL) subcutaneous RxNorm: 9254120 10 Unit(s) SQ AC 04/14/2019 No Stop Date Active valsartan 80 mg tablet RxNorm: 152796 1/2 Tablet(s) PO daily 04/14/2019 04/14/2019 Inactive Topamax 25 mg tablet RxNorm: 392935 1 Tablet(s) PO BID 03/11/2019 04/13/2019 Inactive Topamax 25 mg tablet RxNorm: 090533 1 Tablet(s) PO BID 03/11/2019 03/10/2019 Inactive valsartan 40 mg tablet RxNorm: 537494 1/2 Tablet(s) PO daily 03/07/2019 04/13/2019 Inactive metoprolol succinate ER 25 mg tablet,extended release 24 hr RxNorm: 250274 1 Tablet(s) PO QPM 03/07/2019 03/09/2019 Inactive Cymbalta 30 mg capsule,delayed release RxNorm: 235794 1 Capsule(s) PO daily 02/27/2019 04/13/2019 Inactive Lyrica 50 mg capsule RxNorm: 075289 Capsule(s) PO daily 02/26/2019 06/25/2019 Active Cymbalta 60 mg capsule,delayed release RxNorm: 083065 1 Capsule(s) PO QAM 02/19/2019 02/26/2019 Inactive will call for refill- dose change Coreg 6.25 mg tablet RxNorm: 281216 1 Tablet(s) daily 02/19/2019 02/26/2019 Inactive clonazepam 1 mg tablet RxNorm: 953402 2 Tablet(s) PO HS 02/18/2019 06/14/2019 Active Tresiba FlexTouch U-200 insulin 200 unit/mL (3 mL) subcutaneous pen RxNorm: 8128371 50 Unit(s) SQ daily 01/08/2019 05/07/2019 Active please give him 30 day supply Protonix 40 mg tablet,delayed release RxNorm: 642650 1 Tablet(s) PO daily 12/31/2018 01/29/2019 Inactive Tresiba FlexTouch U-200 insulin 200 unit/mL (3 mL) subcutaneous pen RxNorm: 2983420 50 Unit(s) SQ daily 12/31/2018 01/07/2019 Inactive please give him 30 day supply Augmentin 500 mg-125 mg tablet RxNorm: 246279 1 Tablet(s) PO TID 12/26/2018 01/04/2019 Inactive Augmentin 500 mg-125 mg tablet RxNorm: 827443 1 Tablet(s) PO TID 12/26/2018 12/25/2018 Inactive ProAir HFA 90 mcg/actuation aerosol inhaler RxNorm: 1842697 2 Puff(s) INH QID as needed 11/18/2018 04/13/2019 Inactive Lyrica 50 mg capsule RxNorm: 089673 Capsule(s) PO daily 11/13/2018 02/07/2019 Inactive Cymbalta 30 mg capsule,delayed release RxNorm: 427356 1 Capsule(s) PO QAM 11/13/2018 02/18/2019 Inactive Lyrica 50 mg capsule RxNorm: 622104 Capsule(s) PO daily 11/13/2018 11/12/2018 Inactive Symbicort 160 mcg-4.5 mcg/actuation HFA aerosol inhaler RxNorm: 7167745 2 Puff(s) INH BID 11/12/2018 12/11/2018 Inactive azithromycin 500 mg tablet RxNorm: 694879 500mg on day 1 then 250 mg daily x 4 more day Tablet(s) PO 11/07/2018 11/06/2018 Inactive 500mg on day 1 and then 250mg daily 2-4 cefdinir 300 mg capsule RxNorm: 676726 1 Capsule(s) PO BID 11/07/2018 11/06/2018 Inactive albuterol sulfate 2.5 mg/3 mL (0.083 %) solution for nebulization RxNorm: 155395 3 Milliliter(s) INH UD 11/07/2018 04/13/2019 Inactive azithromycin 500 mg tablet RxNorm: 038329 500mg on day 1 then 250 mg daily x 4 more day Tablet(s) PO 11/07/2018 01/07/2019 Inactive 500mg on day 1 and then 250mg daily 2-4 cefdinir 300 mg capsule RxNorm: 770248 1 Capsule(s) PO BID 11/07/2018 11/13/2018 Inactive Levaquin 500 mg tablet RxNorm: 474976 1 Tablet(s) PO daily TAKE ONE TABLET BY MOUTH DAILY UNTIL GONE 10/31/2018 11/13/2018 Inactive Levaquin 500 mg tablet RxNorm: 396405 1 Tablet(s) PO daily 10/30/2018 11/12/2018 Inactive valsartan 80 mg tablet RxNorm: 225561 1/2 Tablet(s) PO daily 10/23/2018 03/06/2019 Inactive doxycycline hyclate 100 mg tablet RxNorm: 8054599 1 Tablet(s) PO BID 10/21/2018 10/27/2018 Inactive ketorolac 60 mg/2 mL intramuscular solution RxNorm: 5018925 Milliliter(s) IM 10/21/2018 10/21/2018 Inactive Levaquin 500 mg tablet RxNorm: 866696 1 Tablet(s) PO daily 10/17/2018 10/31/2018 Inactive albuterol sulfate 2.5 mg/3 mL (0.083 %) solution for nebulization RxNorm: 304930 3 Milliliter(s) INH UD 10/14/2018 11/06/2018 Inactive Levaquin 500 mg tablet RxNorm: 741230 1 Tablet(s) PO daily 10/14/2018 10/16/2018 Inactive Tessalon Perles 100 mg capsule RxNorm: 024033 1-2 Capsule(s) PO TID PRN 10/14/2018 04/13/2019 Inactive albuterol sulfate 2.5 mg/3 mL (0.083 %) solution for nebulization RxNorm: 473388 3 Milliliter(s) INH UD 09/30/2018 10/13/2018 Inactive Kenalog 40 mg/mL suspension for injection RxNorm: 0781972 1.5 Milliliter(s) Inj 09/30/2018 09/30/2018 Inactive Coreg 6.25 mg tablet RxNorm: 338387 TAKE ONE TABLET BY MOUTH TWICE A DAY 09/30/2018 02/18/2019 Inactive Keflex 500 mg capsule RxNorm: 524653 1 Capsule(s) PO TID 09/27/2018 10/03/2018 Inactive prednisone 20 mg tablet RxNorm: 410495 2 Tablet(s) PO daily 09/27/2018 09/29/2018 Inactive Kenalog 40 mg/mL suspension for injection RxNorm: 4629032 Milliliter(s) Inj 09/11/2018 09/11/2018 Inactive Zyrtec 10 mg tablet RxNorm: 9570730 1 Tablet(s) PO daily 09/09/2018 04/13/2019 Inactive Keflex 500 mg capsule RxNorm: 427837 1 Capsule(s) PO TID 09/09/2018 09/15/2018 Inactive Tresiba FlexTouch U-200 insulin 200 unit/mL (3 mL) subcutaneous pen RxNorm: 8122348 50 Unit(s) SQ daily 08/30/2018 08/29/2018 Inactive please give him 30 day supply Tresiba FlexTouch U-200 insulin 200 unit/mL (3 mL) subcutaneous pen RxNorm: 6181325 50 Unit(s) SQ daily 08/30/2018 09/28/2018 Inactive please give him 30 day supply Novolog Flexpen U-100 Insulin aspart 100 unit/mL subcutaneous RxNorm: 7166302 8 Unit(s) SQ AC 08/13/2018 04/13/2019 Inactive Novolog Flexpen U-100 Insulin aspart 100 unit/mL subcutaneous RxNorm: 2301710 8 Unit(s) SQ AC 07/22/2018 2018 Inactive this is an update on his medication Novolog Flexpen U-100 Insulin aspart 100 unit/mL subcutaneous RxNorm: 6648490 12 Unit(s) SQ AC 07/05/2018 07/21/2018 Inactive this is an update on his medication Toujeo SoloStar U-300 Insulin 300 unit/mL (1.5 mL) subcutaneous pen RxNorm: 0230655 INJECT 50 UNITS UNDER THE SKIN DAILY 07/01/2018 08/29/2018 Inactive Mucinex 600 mg tablet, extended release RxNorm: 452240 1 Tablet(s) PO BID 06/28/2018 07/04/2018 Inactive Zofran 4 mg tablet RxNorm: 018664 1 Tablet(s) PO TID as needed nausea 06/28/2018 07/02/2018 Inactive Kenalog 40 mg/mL suspension for injection RxNorm: 1863439 Milliliter(s) Inj 06/28/2018 06/28/2018 Inactive Flonase Allergy Relief 50 mcg/actuation nasal spray,suspension RxNorm: 7064289 1 [place] NASAL BID 06/28/2018 07/08/2018 Inactive Lyrica 50 mg capsule RxNorm: 672227 Capsule(s) PO daily 06/24/2018 07/06/2018 Inactive Novolog Flexpen U-100 Insulin aspart 100 unit/mL subcutaneous RxNorm: 5878407 10 Unit(s) SQ AC 06/18/2018 07/04/2018 Inactive this is an update on his medication Lasix 20 mg tablet RxNorm: 332384 1 Tablet(s) PO BIW 06/12/2018 07/02/2018 Inactive atorvastatin 80 mg tablet RxNorm: 849123 1 Tablet(s) PO QHS 06/10/2018 12/06/2018 Inactive clonazepam 1 mg tablet RxNorm: 459110 2 Tablet(s) PO HS as needed 06/10/2018 06/08/2018 Inactive clonazepam 1 mg tablet RxNorm: 036252 2 Tablet(s) PO HS 06/10/2018 02/17/2019 Inactive Lyrica 50 mg capsule RxNorm: 395482 Capsule(s) PO daily 06/10/2018 07/08/2018 Inactive Lasix 20 mg tablet RxNorm: 1 Tablet(s) PO TIW 06/04/2018 06/11/2018 Inactive Toujeo SoloStar U-300 Insulin 300 unit/mL (1.5 mL) subcutaneous pen RxNorm: 3834785 50 Unit(s) SQ daily 05/07/2018 06/30/2018 Inactive meloxicam 15 mg tablet RxNorm: 432378 15 Milligram(s) PO daily 05/02/2018 05/12/2018 Inactive ketorolac 30 mg/mL injection solution RxNorm: 878315 2 Milliliter(s) Inj 05/02/2018 05/02/2018 Inactive Toujeo SoloStar U-300 Insulin 300 unit/mL (1.5 mL) subcutaneous pen RxNorm: 6076100 45 Unit(s) daily 04/29/2018 05/02/2018 Inactive clonazepam 1 mg tablet RxNorm: 286036 1 Tablet(s) PO Q8 as needed 04/29/2018 06/09/2018 Inactive doxycycline hyclate 100 mg tablet RxNorm: 1660777 1 Tablet(s) PO BID 04/29/2018 05/12/2018 Inactive Cymbalta 30 mg capsule,delayed release RxNorm: 554506 1 Capsule(s) PO QAM 03/13/2018 10/08/2018 Inactive Lexapro 10 mg tablet RxNorm: 340161 1 Tablet(s) PO QPM 02/28/2018 03/03/2018 Inactive Toujeo SoloStar U-300 Insulin 300 unit/mL (1.5 mL) subcutaneous pen RxNorm: 5515636 20 Unit(s) daily 02/28/2018 03/03/2018 Inactive Protonix 40 mg tablet,delayed release RxNorm: 010491 1 Tablet(s) PO daily 01/29/2018 06/09/2018 Inactive clonazepam 1 mg tablet RxNorm: 385906 1 Tablet(s) PO Q8 as needed 12/12/2017 03/10/2018 Inactive Tamiflu 75 mg capsule RxNorm: 018983 1 Capsule(s) PO BID 11/29/2017 12/03/2017 Inactive doxycycline hyclate 100 mg capsule RxNorm: 2185366 1 Capsule(s) PO BID 09/07/2017 09/20/2017 Inactive doxycycline hyclate 100 mg capsule RxNorm: 9178542 1 Capsule(s) PO BID 08/27/2017 09/06/2017 Inactive prednisone 20 mg tablet RxNorm: 399744 2 Tablet(s) PO daily 08/27/2017 08/31/2017 Inactive clopidogrel 75 mg tablet RxNorm: 457204 1 Tablet(s) PO daily 08/24/2017 06/09/2018 Inactive atorvastatin 40 mg tablet RxNorm: 928382 1 Tablet(s) PO QHS 08/24/2017 02/27/2018 Inactive losartan 25 mg tablet RxNorm: 879339 TAKE ONE TABLET BY MOUTH DAILY 08/22/2017 06/09/2018 Inactive Toujeo SoloStar 300 unit/mL (1.5 mL) subcutaneous insulin pen RxNorm: 8171312 45 Unit(s) daily 08/17/2017 08/20/2017 Inactive mupirocin 2 % topical ointment RxNorm: 116533 1 Application TOP TID to the lesions on chest 08/16/2017 08/25/2017 Inactive Toujeo SoloStar 300 unit/mL (1.5 mL) subcutaneous insulin pen RxNorm: 0496865 40 Unit(s) daily 08/16/2017 08/16/2017 Inactive valacyclovir 1 gram tablet RxNorm: 320101 1 Tablet(s) PO TID 07/26/2017 08/01/2017 Inactive clonazepam 1 mg tablet RxNorm: 161664 1 Tablet(s) PO Q8 as needed 07/03/2017 09/30/2017 Inactive Levaquin 500 mg tablet RxNorm: 169593 1 Tablet(s) PO daily 06/22/2017 06/25/2017 Inactive Levaquin 500 mg tablet RxNorm: 845924 1 Tablet(s) PO daily 06/18/2017 06/21/2017 Inactive losartan 25 mg tablet RxNorm: 606203 1 Tablet(s) PO daily 06/18/2017 08/16/2017 Inactive nystatin 100,000 unit/mL oral suspension RxNorm: 558189 5 Milliliter(s) PO QID Swish et swallow 06/18/2017 06/17/2017 Inactive nystatin 100,000 unit/mL oral suspension RxNorm: 068155 5 Milliliter(s) PO QID Swish et swallow 06/18/2017 06/27/2017 Inactive Cipro 500 mg tablet RxNorm: 305954 1 Tablet(s) PO BID 06/12/2017 06/18/2017 Inactive Cipro 500 mg tablet RxNorm: 988555 1 Tablet(s) PO BID 06/12/2017 06/11/2017 Inactive Toujeo SoloStar 300 unit/mL (1.5 mL) subcutaneous insulin pen RxNorm: 6639206 INJECT 10 UNITS UNDER THE SKIN DAILY 06/12/2017 08/15/2017 Inactive Keflex 500 mg capsule RxNorm: 216254 1 Capsule(s) PO TID 06/07/2017 06/13/2017 Inactive doxycycline hyclate 100 mg capsule RxNorm: 8778727 1 Capsule(s) PO BID 05/17/2017 05/21/2017 Inactive doxycycline hyclate 100 mg capsule RxNorm: 8023850 1 Capsule(s) PO BID 05/11/2017 05/16/2017 Inactive losartan 25 mg tablet RxNorm: 363662 1 Tablet(s) PO daily 03/01/2017 06/17/2017 Inactive atorvastatin 40 mg tablet RxNorm: 296896 1 Tablet(s) PO daily 03/01/2017 08/23/2017 Inactive clopidogrel 75 mg tablet RxNorm: 677078 1 Tablet(s) PO daily 03/01/2017 08/23/2017 Inactive Flonase Allergy Relief 50 mcg/actuation nasal spray,suspension RxNorm: 9066084 2 [place] NASAL daily 02/16/2017 02/25/2017 Inactive Augmentin 875 mg-125 mg tablet RxNorm: 873566 1 Tablet(s) PO BID 02/16/2017 02/22/2017 Inactive GET PROBIOTIC TO TAKE WHILE ON ABX Tamiflu 75 mg capsule RxNorm: 149184 1 Capsule(s) PO BID 02/16/2017 02/20/2017 Inactive ceftriaxone 500 mg solution for injection RxNorm: 1995444 1 Milliliter(s) Inj 02/16/2017 02/16/2017 Inactive Kenalog 40 mg/mL suspension for injection RxNorm: 6246761 1 Milliliter(s) Inj 02/16/2017 02/16/2017 Inactive Toujeo SoloStar 300 unit/mL (1.5 mL) subcutaneous insulin pen RxNorm: 7194021 25 Unit(s) SQ QAM 02/12/2017 06/10/2017 Inactive Toujeo SoloStar 300 unit/mL (1.5 mL) subcutaneous insulin pen RxNorm: 4703875 10 Unit(s) SQ QAM 02/05/2017 02/11/2017 Inactive lisinopril 10 mg tablet RxNorm: 712318 1 Tablet(s) PO daily 02/01/2017 02/28/2017 Inactive atorvastatin 40 mg tablet RxNorm: 206848 1 Tablet(s) PO daily 02/01/2017 02/28/2017 Inactive doxycycline hyclate 100 mg capsule RxNorm: 8399935 1 Capsule(s) PO BID 02/01/2017 02/10/2017 Inactive clonazepam 1 mg tablet RxNorm: 681638 1 Tablet(s) PO Q8 as needed 10/09/2016 01/05/2017 Inactive ceftriaxone 1 gram solution for injection RxNorm: 3903642 Inj 10/06/2016 10/06/2016 Inactive cyclobenzaprine 10 mg tablet RxNorm: 721958 1/2-1 Tablet(s) PO TID PRN 07/18/2016 01/28/2017 Inactive clonazepam 1 mg tablet RxNorm: 395476 1 Tablet(s) PO Q8 as needed 05/31/2016 05/29/2016 Inactive clonazepam 1 mg tablet RxNorm: 173924 1 Tablet(s) PO Q8 as needed 05/31/2016 08/28/2016 Inactive Toujeo SoloStar 300 unit/mL (1.5 mL) subcutaneous insulin pen RxNorm: 7043460 10 Unit(s) SQ daily 05/23/2016 01/28/2017 Inactive Crestor 10 mg tablet RxNorm: 679574 1 Tablet(s) PO QHS 05/19/2016 01/28/2017 Inactive Crestor 10 mg tablet RxNorm: 988197 1 Tablet(s) PO QHS 05/19/2016 05/18/2016 Inactive clonazepam 1 mg tablet RxNorm: 570820 1 Tablet(s) PO Q8 as needed 04/25/2016 05/30/2016 Inactive prednisone 20 mg tablet RxNorm: 285146 3 Tablet(s) PO daily 02/11/2016 02/10/2016 Inactive prednisone 20 mg tablet RxNorm: 641214 3 Tablet(s) PO daily 02/11/2016 05/14/2016 Inactive Kenalog 40 mg/mL suspension for injection RxNorm: 5972013 Milliliter(s) Inj 01/20/2016 01/20/2016 Inactive multivitamin tablet RxNorm: 1 Tablet(s) PO daily No Start Date Active aspirin 81 mg tablet,delayed release RxNorm: 850604 1 Tablet(s) PO daily No Start Date Active Brilinta 90 mg tablet RxNorm: 9873756 1 Tablet(s) PO BID No Start Date Active pantoprazole 40 mg tablet,delayed release RxNorm: 735459 1 Tablet(s) PO daily No Start Date Active isosorbide mononitrate ER 30 mg tablet,extended release 24 hr RxNorm: 507288 1 Tablet(s) PO daily No Start Date Active acetaminophen 500 mg tablet RxNorm: 533834 1-2 Tablet(s) PO as needed No Start Date Active clopidogrel 75 mg tablet RxNorm: 171005 1 Tablet(s) PO daily No Start Date 02/28/2017 Inactive Novolog Flexpen U-100 Insulin aspart 100 unit/mL subcutaneous RxNorm: 4532713 5 units with breakfast lunch and 10 supper Unit(s) SQ No Start Date 06/17/2018 Inactive clonazepam 1 mg tablet RxNorm: 770546 1 Tablet(s) PO QHS No Start Date 04/24/2016 Inactive Coreg 6.25 mg tablet RxNorm: 277311 1 Tablet(s) PO BID No Start Date 09/29/2018 Inactive acyclovir 400 mg tablet RxNorm: 437522 2 Tablet(s) PO 5x daily No Start Date 02/28/2017 Inactive Lyrica 50 mg capsule RxNorm: 997108 Capsule(s) PO BID No Start Date 06/09/2018 Inactive Vraylar 3 mg capsule RxNorm: 4858836 1 Capsule(s) PO daily No Start Date 03/12/2018 Inactive valsartan 80 mg tablet RxNorm: 065295 1 Tablet(s) PO daily No Start Date 10/22/2018 Inactive Medication Administered Medication Codes Instructions Start Date Status ketorolac 60 mg/2 mL intramuscular solution RxNorm: 2633972 Milliliter 10/21/2018 No longer Active Kenalog 40 mg/mL suspension for injection RxNorm: 8760445 1.5Milliliter 09/30/2018 No longer Active Kenalog 40 mg/mL suspension for injection RxNorm: 5122041 Milliliter 09/11/2018 No longer Active Kenalog 40 mg/mL suspension for injection RxNorm: 8188347 Milliliter 06/28/2018 No longer Active ketorolac 30 mg/mL injection solution RxNorm: 890151 2Milliliter 05/02/2018 No longer Active ceftriaxone 500 mg solution for injection RxNorm: 7683377 1Milliliter 02/16/2017 No longer Active Kenalog 40 mg/mL suspension for injection RxNorm: 7205506 1Milliliter 02/16/2017 No longer Active ceftriaxone 1 gram solution for injection RxNorm: 2427079 10/06/2016 No longer Active Kenalog 40 mg/mL suspension for injection RxNorm: 8149238 Milliliter 01/20/2016 No longer Active Immunizations Vaccine [...] (primary) hypertension ICD-10: I10 ICD-9: 401.1 03/07/2019 Atherosclerotic heart disease of [place] coronary artery without angina pectoris ICD-10: I25.10 [...] Item Item Code Result Date Culture Sputum 942578 LOWER RESPIRATORY TRACT CULTURE SEE NOTES 11/14/2018 Culture Sputum 457985 LOWER RESPIRATORY TRACT CULTURE SEE NOTES 10/16/2018 LIPID GRP [id number] CHOLESTEROL TNP:Duplicate Order 09/10/2018 LIPID GRP [id number] Triglyceride TNP:Duplicate Order 09/10/2018 LIPID GRP HDL CHOLESTEROL TNP:Duplicate Order 09/10/2018 LIPID GRP [id number] Chol/HDL Ratio TNP:Duplicate Order 09/10/2018 LIPID GRP 0727785 LDL Cholesterol TNP:Duplicate Order 09/10/2018 A1C HPLC 4271243 Hgb A1c 22392-9 TNP:Duplicate Order 09/10/2018 C Diff An [id number] GDH TNP:Lab Request 06/22/2018 C Diff An [id number] Toxin A/B TNP:Lab Request 06/22/2018 C Diff An [id number] C Diff Analyzer TNP:Lab Request 06/22/2018 C Diff An [id number] IC OK? TNP:Lab Request 06/22/2018 CBC [id number] WBC 6.4 10e9/L 05/02/2018 CBC 6199833 RBC 5.60 10e12/L 05/02/2018 CBC 2278925 HEMOGLOBIN 17.0 g/dL 05/02/2018 CBC 3932385 HEMATOCRIT 48.0 % 05/02/2018 CBC 9846739 MCV 85.7 fL 05/02/2018 CBC 3119203 MCH 30.4 pg 05/02/2018 CBC 5261870 MCHC 35.4 g/dL 05/02/2018 CBC 4614130 PLATELET COUNT 166 10e9/L 05/02/2018 CBC 7109093 Mean Plt Volume 11.6 fL 05/02/2018 CBC 5442108 Neut Auto 48.6 % 05/02/2018 CBC 3688113 Lymph Auto 41.7 % 05/02/2018 CBC 2204705 [place] Auto 8.1 % 05/02/2018 CBC 1946643 RDW 13.1 % 05/02/2018 CBC 2895073 Eos Auto 1.1 % 05/02/2018 CBC 2225312 Baso Auto 0.5 % 05/02/2018 CBC 0319856 Neutrophil Abs 3.11 10e9/L 05/02/2018 CBC 4067844 Lymphocyte Abs 2.67 10e9/L 05/02/2018 CBC 1073676 Monocyte Abs 0.52 10e9/L 05/02/2018 CBC 0111269 Eosinophil Abs 0.07 10e9/L 05/02/2018 CBC 3726785 RDW-SD 40.0 fL 05/02/2018 CBC 4780773 Basophil Abs 0.03 10e9/L 05/02/2018 CHEM 14 8747223 AST 17 U/L 05/02/2018 CHEM 14 4553090 ALT 17 U/L 05/02/2018 CHEM 14 3843677 BUN 17 mg/dL 05/02/2018 CHEM 14 8042790 ALBUMIN 4.0 g/dL 05/02/2018 CHEM 14 0808488 CHLORIDE 97 mmol/L 05/02/2018 CHEM 14 6839244 Bili Total 0.9 mg/dL 05/02/2018 CHEM 14 0803315 ALK PHOS 67 U/L 05/02/2018 CHEM 14 6528076 SODIUM 135 mmol/L 05/02/2018 CHEM 14 5605348 CREATININE 1.18 mg/dL 05/02/2018 CHEM 14 7755618 CALCIUM 9.4 mg/dL 05/02/2018 CHEM 14 2592250 POTASSIUM 4.4 mmol/L 05/02/2018 CHEM 14 2602481 TOTAL PROTEIN 6.9 g/dL 05/02/2018 CHEM 14 9963210 GLUCOSE 316 mg/dL 05/02/2018 CHEM 14 0212396 Bicarbonate 29 mmol/L 05/02/2018 CHEM 14 8909861 AGAP 9 mmol/L 05/02/2018 MEAN GLUC 3673102 Calc Mean Gluc 283 mg/dL 05/02/2018 A1C HPLC 2316150 Hgb A1c 05274-2 11.5 % 05/02/2018 GFR CALC 7709046 GFR Non Afr Amr >60 mL/min 05/02/2018 GFR CALC 7071705 GFR Afr Amr >60 mL/min 05/02/2018 [facility] Gold [id number] [facility] Gold Complete 02/28/2018 GFR CALC 6359138 GFR Non Afr Amr >60 mL/min 02/28/2018 GFR CALC 7700408 GFR Afr Amr >60 mL/min 02/28/2018 UA W/CII 3497989 UA Urine Appear Normal 02/28/2018 UA W/CII 5731783 UA Protein 1+ 02/28/2018 UA W/CII 5401948 UA Hemoglobin Negative 02/28/2018 UA W/CII 1212351 UA Glucose 4+ 02/28/2018 UA W/CII 2531765 UA Ketones Trace 02/28/2018 UA W/CII 3565068 UA pH 5.5 02/28/2018 UA W/CII 1193856 U Spec [place] 1.015 02/28/2018 UA W/CII 9287087 UA Bilirubin Negative 02/28/2018 UA W/CII 5681379 UA Nitrite NEG 02/28/2018 UA W/CII 1937043 UA Leuk Esteras Negative 02/28/2018 MICR 2817554 UA WBC/hpf 1 02/28/2018 MICR 4925913 UA RBC hpf 2 02/28/2018 MICR 0311362 UA WBC auto 3.8 /uL 02/28/2018 MICR 7102825 UA RBC auto 12.2 /uL 02/28/2018 MICR 7168799 UA SQ EPI auto 2.3 /uL 02/28/2018 MICR 7718328 UA H Cast auto 0.10 /uL 02/28/2018 CBC 8189955 WBC 6.4 10e9/L 02/28/2018 CBC 2635314 RBC 5.51 10e12/L 02/28/2018 CBC 5957669 HEMOGLOBIN 16.7 g/dL 02/28/2018 CBC 3036578 HEMATOCRIT 46.9 % 02/28/2018 CBC 1663583 MCV 85.1 fL 02/28/2018 CBC 6358697 MCH 30.3 pg 02/28/2018 CBC 4818308 MCHC 35.6 g/dL 02/28/2018 CBC 2982608 PLATELET COUNT 173 10e9/L 02/28/2018 CBC 1488286 Mean Plt Volume 11.6 fL 02/28/2018 CBC 0590887 Neut Auto 51.8 % 02/28/2018 CBC 7656794 Lymph Auto 39.9 % 02/28/2018 CBC 1551422 [place] Auto 7.3 % 02/28/2018 CBC 8508282 RDW 13.3 % 02/28/2018 CBC 4647410 Eos Auto 0.8 % 02/28/2018 CBC 5622648 Baso Auto 0.2 % 02/28/2018 CBC 9316408 Neutrophil Abs 3.32 10e9/L 02/28/2018 CBC 8491421 Lymphocyte Abs 2.55 10e9/L 02/28/2018 CBC 1893604 Monocyte Abs 0.47 10e9/L 02/28/2018 CBC 7547316 Eosinophil Abs 0.05 10e9/L 02/28/2018 CBC 2340483 RDW-SD 40.8 fL 02/28/2018 CBC 9108787 Basophil Abs 0.01 10e9/L 02/28/2018 CHEM 14 8261813 AST 17 U/L 02/28/2018 CHEM 14 6916504 ALT 17 U/L 02/28/2018 CHEM 14 1165693 BUN 20 mg/dL 02/28/2018 CHEM 14 3400471 ALBUMIN 4.1 g/dL 02/28/2018 CHEM 14 9602843 CHLORIDE 97 mmol/L 02/28/2018 CHEM 14 4641764 Bili Total 1.3 mg/dL 02/28/2018 CHEM 14 4342533 ALK PHOS 78 U/L 02/28/2018 CHEM 14 3691729 SODIUM 135 mmol/L 02/28/2018 CHEM 14 2088735 CREATININE 1.09 mg/dL 02/28/2018 CHEM 14 5003704 CALCIUM 9.6 mg/dL 02/28/2018 CHEM 14 5848201 POTASSIUM 3.8 mmol/L 02/28/2018 CHEM 14 9533690 TOTAL PROTEIN 7.3 g/dL 02/28/2018 CHEM 14 7006162 GLUCOSE 349 mg/dL 02/28/2018 CHEM 14 8033579 Bicarbonate 29 mmol/L 02/28/2018 CHEM 14 2395599 AGAP 9 mmol/L 02/28/2018 [place] Spotted Fever Igg/Igm 995750 FEI MT SPOTTED FEVER IGM EIA . 09/05/2017 [place] Spotted Fever Igg/Igm 220000 RMSF, IGM 0.17 index 09/05/2017 [place] Spotted Fever Igg/Igm 586622 FEI MT SPOTTED FEVER IGG EIA FLEX . 09/05/2017 [place] Spotted Fever Igg/Igm 114017 RMSF, IGG SCREEN-FLEX Positive 09/05/2017 Fei Mtn Spot'D Fev Igg 022861 RMSF, IGG- TITER IFA <1:64 09/05/2017 Ehrlichia Chaffeensis Antibody Igm 487706 EHRLICHIA CHAFFEENSIS IGM < 1:16 09/03/2017 Ehrlichia Chaffeensis Antibody Igg 524158 EHRLICHIA CHAFFEENSIS IGG <1:64 09/03/2017 Lymes Disease Total Antibodies With Western Blot Reflex B. BURGDORFERI, IGG/IGM 0.223 08/30/2017 Lymes Disease Total Antibodies With Western Blot Reflex 08/30/2017 C-Reactive Protein Qnt Crqnt CRP 0.00 mg/dl 08/27/2017 Sed Rate Ord21 ESR 8 mm/hr 08/27/2017 Comp Metabolic Qnn982 NA 135 mEq/L 08/16/2017 Comp Metabolic Pam343 K 4.1 mEq/L 08/16/2017 Comp Metabolic Nrn022 CL 98 mEq/L 08/16/2017 Comp Metabolic Lqo358 CO2 28.0 mEq/L 08/16/2017 Comp Metabolic Bar446 ANION GAP 13 08/16/2017 Comp Metabolic Xdi026 GLUCOSE 299 mg/dL 08/16/2017 Comp Metabolic Mzn559 Creat 0.9 mg/dL 08/16/2017 Comp Metabolic Bgu627 eGFR 90 ml/min/1.73m2 08/16/2017 Comp Metabolic Iec232 BUN 20 mg/dL 08/16/2017 Comp Metabolic Ric075 B/C Ratio 21.5 Ratio 08/16/2017 Comp Metabolic Kwl434 CALCIUM 9.2 mg/dL 08/16/2017 Comp Metabolic Dtb265 ALK PHOS 84 U/L 08/16/2017 Comp Metabolic Xbo639 AST(SGOT) 19 U/L 08/16/2017 Comp Metabolic Ypp259 ALT(SGPT) 24 U/L 08/16/2017 Comp Metabolic Nkk524 BILI T 1.1 mg/dL 08/16/2017 Comp Metabolic Oiw095 ALBUMIN 4.2 g/dL 08/16/2017 Comp Metabolic Yvv105 TPRO 7.2 g/dL 08/16/2017 Comp Metabolic Ikb561 GLOB 3.0 g/dL 08/16/2017 Comp Metabolic Gpu873 A/G Ratio 1.4 Ratio 08/16/2017 Comp Metabolic Ysh302 Osmo 284 mOsmo 08/16/2017 %Hba1C Mma385 % HbA1c 64908- 6 12.5 % 08/16/2017 %Hba1C Jzj815 Gluc Ave 312 mg/dL 08/16/2017 Urine Culture Ucult Preliminary NO Growth Day 1 06/23/2017 Urine Culture Ucult Complete NO Growth Day 2 06/23/2017 C RAP A SC [id number] Strep A Negative 06/08/2017 %Hba1C Ayv447 % HbA1c 33105- 6 9.5 % 05/04/2017 %Hba1C Aig561 Gluc Ave 226 mg/dL 05/04/2017 Tsh Ord6 [...] 31.7 pg 05/04/2017 Cbc With Differential Ord2 Mcminn% 8.5 % 05/04/2017 Cbc With Differential Ord2 [...] 2.48 K/ul 05/04/2017 Cbc With Differential Ord2 [place] ABS# 0.5 K/ul 05/04/2017 Cbc With Differential Ord2 Eos ABS# 0.1 K/ul 05/04/2017 Cbc With Differential Ord2 Baso ABS# 0.0 K/ul 05/04/2017 Comp Metabolic Axl822 NA 135 mEq/L 05/04/2017 Comp Metabolic Xqf149 K 4.2 mEq/L 05/04/2017 Comp Metabolic Bqp944 CL 99 mEq/L 05/04/2017 Comp Metabolic Fds913 CO2 26.0 mEq/L 05/04/2017 Comp Metabolic Tjh612 ANION GAP 14 05/04/2017 Comp Metabolic Kmf489 GLUCOSE 277 mg/dL 05/04/2017 Comp Metabolic Rhh430 Creat 0.9 mg/dL 05/04/2017 Comp Metabolic Qoo946 eGFR 96 ml/min/1.73m2 05/04/2017 Comp Metabolic Lfa631 BUN 23 mg/dL 05/04/2017 Comp Metabolic Uvq626 B/C Ratio 26.1 Ratio 05/04/2017 Comp Metabolic Zch751 CALCIUM 8.9 mg/dL 05/04/2017 Comp Metabolic Rqz269 ALK PHOS 81 U/L 05/04/2017 Comp Metabolic Avd917 AST(SGOT) 21 U/L 05/04/2017 Comp Metabolic Bks063 ALT(SGPT) 27 U/L 05/04/2017 Comp Metabolic Dvr457 BILI T 1.2 mg/dL 05/04/2017 Comp Metabolic Xqs707 ALBUMIN 4.0 g/dL 05/04/2017 Comp Metabolic Qyd070 TPRO 6.7 g/dL 05/04/2017 Comp Metabolic Tyn623 GLOB 2.7 g/dL 05/04/2017 Comp Metabolic Rnf627 A/G Ratio 1.5 Ratio 05/04/2017 Comp Metabolic Tby652 Osmo 284 mOsmo 05/04/2017 C A/B FLU [id number] Influenza A Scr Negative 02/16/2017 C A/B FLU [id number] Influenza B Scr Positive 02/16/2017 Cbc With [...] 30.3 pg 05/23/2016 Cbc With Differential Ord2 [place]% 8.8 % 05/23/2016 Cbc With Differential Ord2 [...] 2.07 K/ul 05/23/2016 Cbc With Differential Ord2 [place] ABS# 0.5 K/ul 05/23/2016 Cbc With Differential Ord2 Eos ABS# 0.1 K/ul 05/23/2016 Cbc With Differential Ord2 Baso ABS# 0.0 K/ul 05/23/2016 Lipid Ord30 CHOL 397 mg/dL 05/17/2016 Lipid Ord30 HDL 48.0 mg/dl 05/17/2016 Lipid Ord30 TRIG 578 mg/dL 05/17/2016 Lipid Ord30 LDL Unable to calculate Due to elevated triglycerides mg/dL 05/17/2016 Lipid Ord30 C/HDL 8.3 Ratio 05/17/2016 %Hba1C Plx538 % HbA1c 18481- 6 12.4 % 05/16/2016 %Hba1C Xee053 Gluc Ave 309 mg/dL 05/16/2016 Cbc With [...] 30.4 pg 05/15/2016 Cbc With Differential Ord2 [place]% 7.8 % 05/15/2016 Cbc With Differential Ord2 [...] 2.04 K/ul 05/15/2016 Cbc With Differential Ord2 [place] ABS# 0.5 K/ul 05/15/2016 Cbc With Differential Ord2 Eos ABS# 0.1 K/ul 05/15/2016 Cbc With Differential Ord2 Baso ABS# 0.0 K/ul 05/15/2016 Tsh Ord6 hTSH II 1.70 uIU/mL 05/15/2016 Comp Metabolic Muy383 NA 135 mEq/L 05/15/2016 Comp Metabolic Jcw404 K 3.9 mEq/L 05/15/2016 Comp Metabolic Hia294 CL 96 mEq/L 05/15/2016 Comp Metabolic Cgo250 CO2 27.0 mEq/L 05/15/2016 Comp Metabolic Wpw738 ANION GAP 16 05/15/2016 Comp Metabolic Igt245 GLUCOSE 183 mg/dL 05/15/2016 Comp Metabolic Icr261 Creat 1.1 mg/dL 05/15/2016 Comp Metabolic Anq667 eGFR 71 ml/min/1.73m2 05/15/2016 Comp Metabolic Udm883 BUN 17 mg/dL 05/15/2016 Comp Metabolic Lla766 B/C Ratio 14.9 Ratio 05/15/2016 Comp Metabolic Vvm928 CALCIUM 9.6 mg/dL 05/15/2016 Comp Metabolic Otn872 ALK PHOS 100 U/L 05/15/2016 Comp Metabolic Dqj216 AST(SGOT) 20 U/L 05/15/2016 Comp Metabolic Dka696 ALT(SGPT) 20 U/L 05/15/2016 Comp Metabolic Xyr813 BILI T 1.3 mg/dL 05/15/2016 Comp Metabolic Use969 ALBUMIN 4.6 g/dL 05/15/2016 Comp Metabolic Mbr015 TPRO 8.1 g/dL 05/15/2016 Comp Metabolic Eov300 GLOB 3.5 g/dL 05/15/2016 Comp Metabolic Arl807 A/G Ratio 1.3 Ratio 05/15/2016 Comp Metabolic Ldz866 Osmo 276 mOsmo 05/15/2016 Review of Systems [...] Codes Date URINALYSIS NONAUTO W/O SCOPE CPT-4: 47030 02/17/2019 KETOROLAC TROMETHAMINE INJ CPT-4: J1885 10/21/2018 TRIAMCINOLONE ACET INJ NOS CPT-4: J3301 09/30/2018 THER/PROPH/DIAG INJ SC/IM CPT-4: 98126 09/11/2018 TRIAMCINOLONE ACET INJ NOS CPT-4: J3301 09/11/2018 IMMUNIZATION ADMIN CPT- 4: 62431 07/22/2018 FLU VAC NO PRSV 4 MENA 3 YRS+ CPT-4: 07905 07/22/2018 TRIAMCINOLONE ACET INJ NOS CPT-4: J3301 06/28/2018 KETOROLAC TROMETHAMINE INJ CPT-4: J1885 05/02/2018 FLU VAC NO PRSV 4 MENA 3 YRS+ CPT-4: 59123 08/16/2017 IMMUNIZATION ADMIN CPT- 4: 36983 08/16/2017 URINALYSIS NONAUTO W/O SCOPE CPT-4: 16583 06/21/2017 TRIAMCINOLONE ACET INJ NOS CPT-4: J3301 05/04/2017 THER/PROPH/DIAG INJ SC/IM CPT-4: 64061 05/04/2017 TRIAMCINOLONE ACET INJ NOS CPT-4: J3301 02/16/2017 ROCEPHIN, PER 250 MG CPT- 4: J0696 02/16/2017 ROCEPHIN, PER 250 MG CPT- 4: J0696 10/06/2016 URINALYSIS NONAUTO W/O SCOPE CPT-4: 95594 07/18/2016 TRIAMCINOLONE ACET INJ NOS CPT-4: J3301 01/20/2016 Vital Signs Date Vital 04/14/2019 Blood Pressure 1: 104/66 Code: 8480-6 BMI: 32.1 Code: 72342-5 Heart Rate 1: 93 bpm Height: 6'2" SpO2: 93% Weight: 250 lbs 04/08/2019 Blood Pressure 1: 92/60 Code: 8480-6 BMI: 33.0 Code: 32811- 5 Heart Rate 1: 114 bpm Height: 6'2" SpO2: 98% Weight: 257 lbs 04/03/2019 Blood Pressure 1: 126/70 Code: 8480-6 BMI: 33.0 Code: 44864-7 Heart Rate 1: 100 bpm Height: 6'2" SpO2: 97% Weight: 257 lbs 03/07/2019 Blood Pressure 1: 110/70 Code: 8480-6 BMI: 33.0 Code: 01679-2 Heart Rate 1: 112 bpm Height: 6'2" SpO2: 95% Weight: 257 lbs 02/27/2019 Blood Pressure 1: 110/80 Code: 8480-6 BMI: 33.0 Code: 73385-9 Heart Rate 1: 89 bpm Height: 6'2" SpO2: 95% Weight: 257 lbs 02/17/2019 Blood Pressure 1: 120/80 Code: 8480-6 Blood Pressure 2: 10280 Code: 8480-6 Heart Rate 1: 89 bpm SpO2: 96% 01/13/2019 Blood Pressure 1: 120/70 Code: 8480-6 BMI: 34.2 Code: 85090-5 Heart Rate 1: 74 bpm Height: 6'2" SpO2: 96% Weight: 266 lbs 12/31/2018 Blood Pressure 1: 122/70 Code: 8480-6 BMI: 34.4 Code: 22964-0 Heart Rate 1: 90 bpm Height: 6'2" SpO2: 97% Temperature: 36.6 (C) / 97.8 (F) Weight: 268 lbs 12/26/2018 Blood Pressure 1: 118/72 Code: 8480-6 BMI: 34.4 Code: 63030-5 Heart Rate 1: 82 bpm Height: 6'2" SpO2: 98% Temperature: 36.6 (C) / 97.9 (F) Weight: 268 lbs 11/18/2018 Blood Pressure 1: 120/84 Code: 8480-6 BMI: 33.9 Code: 04128-0 Heart Rate 1: 77 bpm Height: 6'2" SpO2: 99% Temperature: 36.7 (C) / 98.1 (F) Weight: 264 lbs 11/12/2018 Blood Pressure 1: 138/76 Code: 8480-6 BMI: 33.9 Code: 58860-6 Heart Rate 1: 91 bpm Height: 6'2" SpO2: 99% Weight: 264 lbs 10/30/2018 Blood Pressure 1: 130/72 Code: 8480-6 BMI: 33.3 Code: 95453-5 Heart Rate 1: 83 bpm Height: 6'2" SpO2: 95% Temperature: 36.5 (C) / 97.7 (F) Weight: 259 lbs 10/24/2018 Blood Pressure 1: 130/70 Code: 8480-6 Heart Rate 1: 95 bpm Height: 6'2" SpO2: 96% 10/23/2018 Blood Pressure 1: 100/70 Code: 8480-6 Blood Pressure 2: 102/70 Code: 8480-6 BMI: 33.3 Code: 66377-5 Heart Rate 1: 106 bpm Height: 6'2" SpO2: 98% Weight: 259 lbs 10/21/2018 Blood Pressure 1: 140/90 Code: 8480-6 BMI: 32.9 Code: 13542-9 Heart Rate 1: 96 bpm Height: 6'2" SpO2: 92% Weight: 256 lbs 10/17/2018 Blood Pressure 1: 110/68 Code: 8480-6 BMI: 32.9 Code: 55827-9 Heart Rate 1: 82 bpm Height: 6'2" SpO2: 97% Weight: 256 lbs 10/14/2018 Blood Pressure 1: 124/70 Code: 8480-6 BMI: 33.6 Code: 03165-4 Heart Rate 1: 76 bpm Height: 6'2" SpO2: 99% Temperature: 36.3 (C) / 97.3 (F) Weight: 262 lbs 09/30/2018 Blood Pressure 1: 138/82 Code: 8480-6 BMI: 33.6 Code: 75365-0 Heart Rate 1: 82 bpm Height: 6'2" SpO2: 98% Temperature: 36.3 (C) / 97.3 (F) Weight: 262 lbs 09/09/2018 Blood Pressure 1: 140/80 Code: 8480-6 BMI: 33.0 Code: 57359-1 Heart Rate 1: 97 bpm Height: 6'2" SpO2: 93% Temperature: 36.8 (C) / 98.2 (F) Weight: 257 lbs 07/22/2018 Blood Pressure 1: 120/78 Code: 8480-6 BMI: 31.6 Code: 85841-0 Heart Rate 1: 87 bpm Height: 6'2" SpO2: 98% Weight: 246 lbs 07/16/2018 Blood Pressure 1: 132/74 Code: 8480-6 BMI: 31.2 Code: 40709-7 Heart Rate 1: 90 bpm Height: 6'2" SpO2: 96% Weight: 243 lbs 07/01/2018 Blood Pressure 1: 142/82 Code: 8480-6 BMI: 31.8 Code: 14538-7 Heart Rate 1: 88 bpm Height: 6'2" SpO2: 98% Weight: 248 lbs 06/28/2018 Blood Pressure 1: 132/76 Code: 8480-6 BMI: 31.8 Code: 37481-1 Heart Rate 1: 107 bpm Height: 6'2" SpO2: 98% Temperature: 37.9 (C) / 100.3 (F) Weight: 248 lbs 06/18/2018 Blood Pressure 1: 138/82 Code: 8480-6 BMI: 31.8 Code: 75603-6 Heart Rate 1: 82 bpm Height: 6'2" SpO2: 97% Weight: 248 lbs 06/04/2018 Blood Pressure 1: 128/84 Code: 8480-6 BMI: 33.9 Code: 08185-4 Heart Rate 1: 86 bpm Height: 6'2" SpO2: 95% Weight: 264 lbs 05/13/2018 Blood Pressure 1: 130/80 Code: 8480-6 BMI: 31.1 Code: 13152-4 Heart Rate 1: 100 bpm Height: 6'2" SpO2: 94% Weight: 242 lbs 05/02/2018 Blood Pressure 1: 134/84 Code: 8480-6 BMI: 31.2 Code: 74768-9 Heart Rate 1: 93 bpm Height: 6'2" SpO2: 98% Weight: 243 lbs 04/29/2018 Blood Pressure 1: 142/88 Code: 8480-6 BMI: 31.6 Code: 73461-7 Heart Rate 1: 96 bpm Height: 6'2" SpO2: 96% Temperature: 36.7 (C) / 98.1 (F) Weight: 246 lbs 03/13/2018 Blood Pressure 1: 120/76 Code: 8480-6 BMI: 30.9 Code: 33616-0 Heart Rate 1: 112 bpm Height: 6'2" SpO2: 97% Weight: 241 lbs 03/07/2018 Blood Pressure 1: 108/78 Code: 8480-6 BMI: 30.0 Code: 00858-5 Heart Rate 1: 87 bpm Height: 6'2" SpO2: 98% Weight: 234 lbs 02/28/2018 Blood Pressure 1: 106/74 Code: 8480-6 BMI: 30.0 Code: 46310-5 Heart Rate 1: 101 bpm Height: 6'2" SpO2: 98% Temperature: 36.4 (C) / 97.5 (F) Weight: 234 lbs 02/13/2018 Blood Pressure 1: 110/78 Code: 8480-6 BMI: 30.0 Code: 86218-8 Heart Rate 1: 106 bpm Height: 6'2" SpO2: 98% Weight: 234 lbs 01/29/2018 Blood Pressure 1: 106/68 Code: 8480-6 BMI: 30.0 Code: 39063-3 Heart Rate 1: 108 bpm Height: 6'2" SpO2: 98% Weight: 234 lbs 08/27/2017 Blood Pressure 1: 134/76 Code: 8480-6 Heart Rate 1: 98 bpm Height: SpO2: 97% Weight: 08/16/2017 Blood Pressure 1: 128/80 Code: 8480-6 BMI: 32.0 Code: 18141-8 Heart Rate 1: 94 bpm Height: 6'2" [...] 1: 142/92 Code: 8480-6 BMI: 31.8 Code: 62851-8 Heart Rate 1: 102 bpm Height: 6'2" [...] 1: 122/72 Code: 8480-6 BMI: 31.8 Code: 21787-1 Heart Rate 1: 85 bpm Height: 6'2" SpO2: 96% Temperature: 36.6 (C) / 97.9 (F) Weight: 248 lbs 02/12/2017 Blood Pressure 1: 126/76 Code: 8480-6 BMI: 31.8 Code: 05205-2 Heart Rate 1: 106 bpm Height: 6'2" SpO2: 91% Weight: 248 lbs 02/05/2017 Blood Pressure 1: 146/86 Code: 8480-6 BMI: 31.9 Code: 88661-0 Heart Rate 1: 98 bpm Height: 6'2" SpO2: 87% Temperature: 36.7 (C) / 98.0 (F) Weight: 248 lbs 8 oz 01/29/2017 Blood Pressure 1: 132/84 Code: 8480-6 BMI: 31.8 Code: 70903-8 Heart Rate 1: 83 bpm Height: 6'2" SpO2: 97% Weight: 248 lbs 10/13/2016 Blood Pressure 1: 128/72 Code: 8480-6 Heart Rate 1: 86 bpm SpO2: 94% 10/09/2016 Blood Pressure 1: 128/68 Code: 8480-6 Heart Rate 1: 136 bpm SpO2: 94% Temperature: 36.8 (C) / 98.2 (F) 10/06/2016 Blood Pressure 1: 140/80 Code: 8480-6 BMI: 32.1 Code: 33079-3 Heart Rate 1: 94 bpm Height: 6'2" SpO2: 95% Weight: 250 lbs 07/18/2016 Blood Pressure 1: 128/86 Code: 8480-6 BMI: 32.1 Code: 47583-1 Heart Rate 1: 89 bpm Height: 6'2" SpO2: 96% Weight: 250 lbs 06/22/2016 Blood Pressure 1: 118/70 Code: 8480-6 BMI: 32.1 Code: 22375-0 Heart Rate 1: 70 bpm Height: 6'2" SpO2: 97% Weight: 250 lbs 05/23/2016 Blood Pressure 1: 128/80 Code: 8480-6 BMI: 32.1 Code: 81500-9 Heart Rate 1: 76 bpm Height: 6'2" SpO2: 98% Weight: 250 lbs 05/15/2016 Blood Pressure 1: 110/90 Code: 8480-6 BMI: 31.3 Code: 99866-0 Heart Rate 1: 111 bpm Height: 6'2" SpO2: 97% Temperature: 36.6 (C) / 97.8 (F) Weight: 244 lbs 01/20/2016 Blood Pressure 1: 128/76 Code: 8480-6 BMI: 33.0 Code: 92076-9 Heart Rate 1: 103 bpm Height: 6'2" [...] 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 PATIENT, LEVEL III Diagnosis: Hypotension due to drugs[ICD10: I95.2] Melida Ha MD, [facility] CPT-4: 61447 04/14/2019 [id number] EST. PATIENT, LEVEL IV Diagnosis: Other fatigue[ICD10: R53.83] Diagnosis: Other malaise[ICD10: R53.81] Diagnosis: Anorexia[ICD10: R63.0] Diagnosis: Palpitations[ICD10: R00.2] Diagnosis: Weakness[ICD10: R53.1] Diagnosis: Dizziness and giddiness[ICD10: R42] Madeline Ha MD, [facility] CPT- 4: 35097 04/08/2019 ([id number]) 48686 EST. PATIENT, LEVEL III Diagnosis: Pain in left finger(s)[ICD10: M79.645] Diagnosis: Pain in left hand[ICD10: M79.642] Diagnosis: Contusion of left hand, initial encounter[ICD10: S60.222A] Diagnosis: Nasal congestion[ICD10: R09.81] Diagnosis: Headache[ICD10: R51] Melida Ha MD, [facility] CPT-4: 41293 04/03/2019 ([id number]) 55796 EST. PATIENT, LEVEL III Diagnosis: Essential (primary) hypertension[ICD10: I10] Marcela Ha MD, [facility] CPT-4: 22958 03/07/2019 ([id number]) 75726 EST. PATIENT, LEVEL III Diagnosis: Hypotension due to drugs[ICD10: I95.2] Marcela Ha MD, [facility] CPT-4: 35722 02/27/2019 ([id number]) 29223 EST. PATIENT, LEVEL III Diagnosis: Hypotension due to drugs[ICD10: I95.2] Diagnosis: Other fatigue[ICD10: R53.83] Marcela Ha MD, [facility] CPT-4: 76986 02/17/2019 ([id number]) 13536 EST. 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 PATIENT, LEVEL IV Diagnosis: Type 2 diabetes mellitus with hyperglycemia[ICD10: E11.65] Diagnosis: Epigastric pain[ICD10: R10.13] Diagnosis: Pain in joints of right hand[ICD10: M25.541] Diagnosis: Shortness of breath[ICD10: R06.02] Marcela Ha MD, [facility] CPT- 4: 91131 12/31/2018 88143 EST. PATIENT, LEVEL III Diagnosis: Other chest pain[ICD10: R07.89] Diagnosis: Cough[ICD10: R05] Madeline Ha MD, [facility] CPT-4: 45338 12/26/2018 ([id number]) 08326 EST. PATIENT, LEVEL III Diagnosis: Cough[ICD10: R05] Melida Ha MD, [facility] CPT-4: 76448 11/18/2018 ([id number]) 85356 EST. PATIENT, LEVEL III Diagnosis: Cough[ICD10: R05] Diagnosis: Pneumonia due to other Gram-negative bacteria[ICD10: J15.6] Marcela Ha MD, [facility] CPT-4: 15498 11/12/2018 ([id number]) 95441 EST. PATIENT, LEVEL III Diagnosis: Pneumonia due to other Gram-negative bacteria[ICD10: J15.6] Diagnosis: Cough[ICD10: R05] Melida Ha MD, [facility] CPT-4: 93361 10/30/2018 ([id number]) 92682 EST. PATIENT, LEVEL II Diagnosis: Pain in joints of right hand[ICD10: M25.541] Diagnosis: Trigger finger, right middle finger[ICD10: M65.331] Marcela Ha MD, [facility] CPT-4: 27153 10/24/2018 ([id number]) 50446 EST. PATIENT, LEVEL IV Diagnosis: Essential (primary) hypertension[ICD10: I10] Diagnosis: Type 2 diabetes mellitus with foot ulcer[ICD10: E11.621] Melida Ha MD, [facility] CPT-4: 83712 10/23/2018 ([id number]) 12782 EST. PATIENT, LEVEL III Diagnosis: Cellulitis of right finger[ICD10: L03.011] Diagnosis: Type 2 diabetes mellitus with foot ulcer[ICD10: E11.621] Diagnosis: Pain in right hand[ICD10: M79.641] Melida Ha MD, [facility] CPT- 4: 18160 10/21/2018 88228 EST. PATIENT, LEVEL III Diagnosis: Spontaneous ecchymoses[ICD10: R23.3] Diagnosis: Cellulitis of right lower limb[ICD10: L03.115] Diagnosis: Cellulitis of left lower limb[ICD10: L03.116] Madeline Ha MD, [facility] CPT-4: 63595 10/17/2018 ([id number]) 33912 EST. PATIENT, LEVEL III Diagnosis: Cough[ICD10: R05] Diagnosis: Acute bronchitis, unspecified[ICD10: J20.9] Melida Ha MD, [facility] CPT-4: 87226 10/14/2018 14433 EST. PATIENT, LEVEL III Diagnosis: Acute laryngopharyngitis[ICD10: J06.0] Diagnosis: Cough[ICD10: R05] Madeline Ha MD, [facility] CPT-4: 76218 09/30/2018 ([id number]) 94700 EST. PATIENT, LEVEL III Diagnosis: Acute recurrent maxillary sinusitis[ICD10: J01.01] Diagnosis: Cough[ICD10: R05] Diagnosis: Type 2 diabetes mellitus with hyperglycemia[ICD10: E11.65] Marcela Ha MD, [facility] CPT-4: 40925 09/09/2018 ([id number]) 66301 EST. PATIENT, LEVEL IV Diagnosis: Essential (primary) hypertension[ICD10: I10] Diagnosis: Mixed hyperlipidemia[ICD10: E78.2] Diagnosis: Bipolar disorder, current episode depressed, moderate[ICD10: F31.32] Diagnosis: Type 2 diabetes mellitus with other specified complication[ICD10: E11.69] Melida Ha MD, [facility] CPT-4: 14509 07/22/2018 ([id number]) 47202 EST. PATIENT, LEVEL III Diagnosis: Insomnia due to medical condition[ICD10: G47.01] Marcela Ha MD, [facility] CPT-4: 97015 07/16/2018 ([id number]) Miscellaneous no charge Diagnosis: Cough[ICD10: R05] Madeline Ha MD, [facility] CPT-4: 32383 07/01/2018 21497 EST. PATIENT, LEVEL III Diagnosis: Cough[ICD10: R05] Diagnosis: Acute laryngopharyngitis[ICD10: J06.0] Diagnosis: Other allergic rhinitis[ICD10: J30.89] Madeline Ha MD, [facility] CPT- 4: 76249 06/28/2018 ([id number]) 89905 EST. PATIENT, LEVEL IV Diagnosis: Type 2 diabetes mellitus with hyperglycemia[ICD10: E11.65] Diagnosis: Essential (primary) hypertension[ICD10: I10] Melida Ha MD, [facility] CPT-4: 41953 06/18/2018 ([id number]) 88791 EST. PATIENT, LEVEL IV Diagnosis: Type 2 diabetes mellitus with hyperglycemia[ICD10: E11.65] Diagnosis: Essential (primary) hypertension[ICD10: I10] Diagnosis: Localized edema[ICD10: R60.0] Melida Ha MD, [facility] CPT-4: 33917 06/04/2018 ([id number]) 56081 EST. PATIENT, LEVEL III Diagnosis: Type 2 diabetes mellitus with hyperglycemia[ICD10: E11.65] Diagnosis: Myalgia[ICD10: M79.1] Diagnosis: Pain in right hip[ICD10: M25.551] Diagnosis: Pain in left hip[ICD10: M25.552] Marcela Ha MD, [facility] CPT- 4: 30850 05/13/2018 ([id number]) 05344 EST. PATIENT, LEVEL III Diagnosis: Myalgia[ICD10: M79.1] Diagnosis: Pain in right hip[ICD10: M25.551] Diagnosis: Pain in left hip[ICD10: M25.552] Marcela Ha MD, [facility] CPT- 4: 31875 05/02/2018 ([id number]) 21696 EST. PATIENT, LEVEL IV Diagnosis: Essential (primary) hypertension[ICD10: I10] Diagnosis: Type 2 diabetes mellitus with hyperglycemia[ICD10: E11.65] Diagnosis: Major depressive disorder, single episode, moderate[ICD10: F32.1] Diagnosis: Myalgia[ICD10: M79.1] Marcela Ha MD, [facility] CPT-4: 64878 04/29/2018 ([id number]) 43631 EST. PATIENT, LEVEL IV Diagnosis: Type 2 diabetes mellitus with hyperglycemia[ICD10: E11.65] Diagnosis: Essential (primary) hypertension[ICD10: I10] Diagnosis: Major depressive disorder, single episode, moderate[ICD10: F32.1] Melida Ha MD, [facility] CPT-4: 13316 03/13/2018 ([id number]) 50670 EST. PATIENT, LEVEL III Diagnosis: Type 2 diabetes mellitus with hyperglycemia[ICD10: E11.65] Diagnosis: Bipolar disorder, current episode depressed, moderate[ICD10: F31.32] Diagnosis: Orthostatic hypotension[ICD10: I95.1] Marcela Ha MD, [facility] CPT-4: 09643 03/07/2018 ([id number]) 00561 EST. PATIENT, LEVEL IV Diagnosis: Type 2 diabetes mellitus with hyperglycemia[ICD10: E11.65] Diagnosis: Major depressive disorder, single episode, moderate[ICD10: F32.1] Diagnosis: Orthostatic hypotension[ICD10: I95.1] Diagnosis: Other fatigue[ICD10: R53.83] Marcela Ha MD, [facility] CPT-4: 55206 02/28/2018 14958 EST. PATIENT, LEVEL IV Diagnosis: Other fatigue[ICD10: R53.83] Diagnosis: Other malaise[ICD10: R53.81] Diagnosis: Gastro-esophageal reflux disease without esophagitis[ICD10: K21.9] Madeline Ha MD, [facility] CPT-4: 59933 02/13/2018 ([id number]) 93338 EST. PATIENT, LEVEL IV Diagnosis: Type 2 diabetes mellitus with foot ulcer[ICD10: E11.621] Diagnosis: Essential (primary) hypertension[ICD10: I10] Diagnosis: Gastro-esophageal reflux disease without esophagitis[ICD10: K21.9] Marcela Ha MD, [facility] CPT-4: 76088 01/29/2018 70857 EST. PATIENT, LEVEL III Diagnosis: Other malaise[ICD10: R53.81] Diagnosis: Other fatigue[ICD10: R53.83] Diagnosis: Pain in right shoulder[ICD10: M25.511] Diagnosis: Pain in left shoulder[ICD10: M25.512] Madeline Ha MD, [facility] CPT- 4: 30836 08/27/2017 ([id number]) 72834 EST. PATIENT, LEVEL IV Diagnosis: Essential (primary) hypertension[ICD10: I10] Diagnosis: Type 2 diabetes mellitus with hyperglycemia[ICD10: E11.65] Diagnosis: VACCIN FOR INFLUENZA[ICD10: Z23] Melida Ha MD [facility] CPT-4: 41707 08/16/2017 46067 EST. PATIENT, LEVEL III Diagnosis: Zoster without complications[ICD10: B02.9] Madeline Ha MD, [facility] CPT-4: 90927 07/26/2017 ([id number]) 02960 EST. PATIENT, LEVEL III Diagnosis: Cellulitis of right lower limb[ICD10: L03.115] Marcela Ha MD [facility] CPT-4: 54362 07/03/2017 10987 EST. PATIENT, LEVEL II Diagnosis: Laceration without foreign body of left forearm, initial encounter[ICD10: S51.812A] Marcela Ha MD [facility] CPT-4: 22216 06/29/2017 ([id number]) 17113 EST. PATIENT, LEVEL III Diagnosis: Cellulitis of right lower limb[ICD10: L03.115] Diagnosis: Type 2 diabetes mellitus with foot ulcer[ICD10: E11.621] Marcela Ha MD [facility] CPT-4: 47977 06/18/2017 ([id number]) 91027 EST. PATIENT, LEVEL IV Diagnosis: Cellulitis of right lower limb[ICD10: L03.115] Diagnosis: Acute laryngopharyngitis[ICD10: J06.0] Diagnosis: Gastro-esophageal reflux disease without esophagitis[ICD10: K21.9] Marcela Ha MD, [facility] CPT-4: 57038 06/07/2017 ([id number]) 15789 EST. PATIENT, LEVEL III Diagnosis: Type 2 diabetes mellitus with hyperglycemia[ICD10: E11.65] Diagnosis: Insect bite (nonvenomous) of abdominal wall, initial encounter[ICD10: S30.861A] Marcela Ha MD, [facility] CPT-4: 47279 05/17/2017 ([id number]) 81530 EST. PATIENT, LEVEL III Diagnosis: Allergic contact dermatitis due to plants, except food[ICD10: L23.7] Melida Ha MD, [facility] CPT-4: 17036 05/04/2017 ([id number]) 91814 EST. PATIENT, LEVEL III Diagnosis: Essential (primary) hypertension[ICD10: I10] Marcela Ha MD [facility] CPT-4: 76402 03/15/2017 ([id number]) 61204 EST. PATIENT, LEVEL III Diagnosis: Cough[ICD10: R05] Diagnosis: Essential (primary) hypertension[ICD10: I10] Marcela Ha MD, [facility] CPT-4: 42507 03/01/2017 ([id number]) 95933 EST. PATIENT, LEVEL III Diagnosis: Cough[ICD10: R05] Diagnosis: Nasal congestion[ICD10: R09.81] Diagnosis: Acute recurrent maxillary sinusitis[ICD10: J01.01] Marcela Ha MD, [facility] CPT-4: 06920 02/16/2017 ([id number]) 14996 EST. PATIENT, LEVEL III Diagnosis: Type 2 diabetes mellitus with hyperglycemia[ICD10: E11.65] Marcela Ha MD, [facility] CPT-4: 98796 02/12/2017 ([id number]) 52604 EST. PATIENT, LEVEL IV Diagnosis: Type 2 diabetes mellitus with hyperglycemia[ICD10: E11.65] Diagnosis: Muscle weakness (generalized)[ICD10: M62.81] Diagnosis: Disorientation, unspecified[ICD10: R41.0] Marcela Ha MD, [facility] CPT-4: 10042 02/05/2017 ([id number]) Patient admitted to the hospital from clinic (NO CHARGE) Diagnosis: Type 2 diabetes mellitus with hyperglycemia[ICD10: E11.65] Diagnosis: Disorientation, unspecified[ICD10: R41.0] Diagnosis: Muscle weakness (generalized)[ICD10: M62.81] Marcela Ha MD, [facility] CPT-4: 68260M 01/29/2017 ([id number]) Miscellaneous no charge Diagnosis: Cellulitis of right lower limb[ICD10: L03.115] Marcela Ha MD, [facility] CPT-4: 82203 10/13/2016 ([id number]) Miscellaneous no charge Diagnosis: Type 2 diabetes mellitus with foot ulcer[ICD10: E11.621] Diagnosis: Pain in right foot[ICD10: M79.671] Marcela Ha MD [facility] CPT- 4: 13101 10/09/2016 [id number] EST. PATIENT, LEVEL II Diagnosis: Cellulitis of right lower limb[ICD10: L03.115] Marcela Ha MD, [facility] CPT-4: 26748 10/06/2016 ([id number]) 13315 EST. PATIENT, LEVEL IV Diagnosis: Low back pain[ICD10: M54.5] Diagnosis: Other deformities of toe(s) (acquired), left foot[ICD10: M20.5X2] Diagnosis: Type 2 diabetes mellitus with foot ulcer[ICD10: E11.621] Marcela Ha MD, [facility] CPT-4: 59764 07/18/2016 ([id number]) 90462 EST. PATIENT, LEVEL III Diagnosis: Type 2 diabetes mellitus with hyperglycemia[ICD10: E11.65] Marcela Ha MD, [facility] CPT-4: 60606 06/22/2016 ([id number]) 60048 EST. PATIENT, LEVEL IV Diagnosis: Type 2 diabetes mellitus with hyperglycemia[ICD10: E11.65] Diagnosis: Mixed hyperlipidemia[ICD10: E78.2] Diagnosis: Other hemoglobinopathies[ICD10: D58.2] Marcela Ha MD, [facility] CPT-4: 60926 05/23/2016 ([id number]) 54243 EST. PATIENT, LEVEL IV Diagnosis: Type 2 diabetes mellitus with other specified complication[ICD10: E11.69] Diagnosis: Dehydration[ICD10: E86.0] Marcela Ha MD, [facility] CPT-4: 83609 05/15/2016 ([id number]) OFFICE VISIT, NEW - LEVEL 3 Diagnosis: Allergic contact dermatitis due to plants, except food[ICD10: L23.7] Madeline Ha MD, [facility] CPT-4: 67848 01/20/2016 Plan of Care Planned Activity Notes Codes Status Date Visit Plan: Hypotension - pt advised as [...] without reduction of your blood pressure. 04/14/2019 Patient Education: Patient Medication Summary Completed 04/14/2019 Visit Plan: Fatigue, malaise, no appetitie, dizziness, palpitations, near syncope - discussed with Dr. Ha - will send for IV fluids and set up an event monitor - pt is to notify clinic if symptoms do not improve, if they worsen, or with any changes, questions, or concerns. 04/08/2019 Appointment: Madeline Kennedy WPtel: [address] [place], [place] [phone] (30 min) Complex 04/08/2019 Patient Education: Patient [...] sinus congestion. 04/03/2019 Appointment: Melida Ha WPtel: [address] [place], [place] [phone] (15 min) Moderate 04/03/2019 Patient Education: Patient Medication Summary Completed 04/03/2019 Care Plan: X-RAY EXAM OF HAND LOINC : 20010-9 Pending 04/03/2019 Appointment: Marcela Oshea WPtel: [id number] [place] (30 min) Complex 03/14/2019 Visit Plan: HTN -heart rate not well controlled -decrease valsartan -start metoprolol 25mg daily -return next week for blood pressure check -10 days for appt -discussed scheduling f/u appt with Dr Brennan as well -patient verbalized understanding of plan. 03/07/2019 Appointment: Marcela Oshea WPtel: [address] [place], [place] [phone] (30 min) Complex 03/07/2019 Patient Education: Patient [...] any concerns 02/27/2019 Appointment: Marcela Oshea WPtel: [address] [place], [place] [phone] (30 min) Complex 02/27/2019 Patient Education: Patient Medication Summary Completed 02/27/2019 Visit Plan: Orthostasis -decrease coreg -monitor symptoms and follow up in 10 days- sooner if needed Fatigue-check labs 02/17/2019 Appointment: Marcela Oshea WPtel: [address] [place], [place] [phone] (30 min) Complex 02/17/2019 Patient Education: Patient Medication Summary Completed 02/17/2019 Appointment: Marcela Oshea WPtel: [address] [place], [place] [phone] (30 min) Complex 01/14/2019 Visit Plan: Hypertension [...] Summary Completed 01/13/2019 Appointment: Marcela Oshea WPtel: [address] [place], [place] [phone] (30 min) Complex 01/10/2019 Visit Plan: Epigastric pain -start protonix daily- monitor symptoms Chest pain -work up negative done last week with Madeline-recommend appt with Dr Brennan Joint pain-check inflammation makers DM-check Hgb a1c 12/31/2018 Appointment: Marcela Oshea WPtel: [phone] [id number] (15 min) Moderate 12/31/2018 Patient Education: Patient Medication Summary Completed 12/31/2018 Visit Plan: chest pain - EKG and cardiac enzymes OK - discussed with Dr. Ha - will treat for pneumonia - pt is to notify clinic if symptoms do not improve, if they worsen, or with any changes questions, or concerns. 12/26/2018 Appointment: Madeline Kennedy WPtel: [phone] [facility] (30 min) Complex 12/26/2018 Patient Education: Patient Medication Summary Completed 12/26/2018 Referral: Andrew Cross Patient informed. Referral info faxed. Completed 11/26/2018 Visit Plan: cough - improved - continue with inhalers - continue with symbicort - rx for proair for PRN use when pt is feelign short of breath with activity. 11/18/2018 Appointment: Melida Ha WPtel: [phone] [facility]66[facility] (15 min) Moderate 11/18/2018 Patient Education: Patient [...] Oshea WPtel: [facility]4 [id number] (30 min) Complex 11/12/2018 Patient Education: Patient Medication Summary Completed 11/12/2018 Patient Education: Symbicort - 18-64 - eCopay Completed 11/12/2018 Care Plan: Referral Order SNOMED-CT : [id number] Pending 11/12/2018 Referral: Niko Mantilla Referral Completed 11/04/2018 Visit Plan: Pneumonia, cough - recent diagnosis of Moraxella Cattharalis - with sensitivity to levaquin - will give 2 wks of levaquin since he had improvement but no full resolution of symptoms. 10/30/2018 Appointment: Melida Ha WPtel: [facility] 30 min appointments only in this [...] evaluation 10/24/2018 Appointment: Marcela Oshea WPtel: [phone] (30 min) Complex 10/24/2018 Patient Education: Patient Medication Summary Completed 10/24/2018 Care Plan: Referral Order SNOMED-CT : [id number] Pending 10/24/2018 Visit Plan: Hypotension - discussed [...] less controlled. 10/23/2018 Appointment: Melida Ha WPtel: [facility] (15 min) Moderate 10/23/2018 Patient Education: [...] ADDENDUM: Doctor's eval of the patient - Dr. Leland Sorto, personally evaluated the patient with the nurse practitioner. I have reviewed the patient's chart, I have reviewed the patient's past medical history, problem list, medication list, and personal history. I agree with the documentation by the nurse practitioner in the HPI, physical exam, and the assessment and plan. 10/21/2018 Appointment: Marcela Oshea WPtel: [phone] (30 min) Complex 10/21/2018 Patient Education: Patient [...] warmth, discharge. 10/17/2018 Appointment: Madeline Kennedy WPtel: [phone] [facility] (15 min) Moderate 10/17/2018 Patient Education: Patient [...] acutely worsen. 10/14/2018 Appointment: Marcela Oshea WPtel: [phone] [facility] [place] [address] (15 min) Moderate 10/14/2018 Patient Education: Patient Medication Summary Completed 10/14/2018 Care Plan: CHEST X-RAY 2VW FRONTAL&LATL LOINC : 44116-2 Pending 10/14/2018 Visit Plan: URI - Pt [...] allergy spray. 09/30/2018 Appointment: Madeline Kennedy WPtel: [phone] [facility] (15 min) Moderate 09/30/2018 Patient Education: Patient [...] Oshea WPtel: [phone] [id number] (15 min) Moderate 09/09/2018 Patient Education: Patient Medication Summary Completed 09/09/2018 Patient Education: Patient Medication Summary Completed 09/06/2018 Patient Education: Cholesterol Management Completed 09/06/2018 Care Plan: Comp Metabolic Pending 09/06/2018 Care Plan: Cbc With Differential Pending 09/06/2018 Care Plan: %Hba1C LOINC : 94501-8 Pending 09/06/2018 Care Plan: Tsh Pending 09/06/2018 Care Plan: Lipid Pending 09/06/2018 Appointment: Marcela Oshea WPtel: [facility]9 [id number] (15 min) Moderate 08/26/2018 Appointment: Marcela Oshea WPtel: [phone] [id number] (15 min) Moderate 08/23/2018 Visit Plan: Hypertension [...] clinic. 07/22/2018 Appointment: Melida Ha WPtel: [phone] [facility] (15 min) Moderate 07/22/2018 Patient Education: [...] time insomnia. 07/16/2018 Appointment: Marcela Oshea WPtel: [phone] [facility] [place] (30 min) Complex 07/16/2018 Patient Education: Patient Medication Summary Completed 07/16/2018 Visit Plan: cough - improved - notify clinic if symptoms do not completely resolve, or with any questions or concerns. 07/01/2018 Appointment: Madeline Kennedy WPtel: [phone] [facility] [place] (15 min) Moderate 07/01/2018 Patient Education: [...] spray. 06/28/2018 Appointment: Madeline Kennedy WPtel: [phone] [facility] (15 min) Moderate 06/28/2018 Patient Education: Patient [...] home. 06/18/2018 Appointment: Melida Ha WPtel: [phone] [facility] (15 min) Moderate 06/18/2018 Patient Education: Patient [...] improves. 06/04/2018 Appointment: Melida Ha WPtel: [phone] [facility] (15 min) Moderate 06/04/2018 Patient Education: Patient [...] allow for greater blood glucose control. Joint jtek-gahgweix-bweyvpj-symptoms have improved -stop meloxicam due to upset stomach-call if symptoms return 05/13/2018 Appointment: Marcela Oshea WPtel: [facility]0 [id number] (30 min) Complex 05/13/2018 Patient Education: Patient Medication Summary Completed 05/13/2018 Visit Plan: Bilateral hip tijf-iwqfbkbn-zrfszau IM injection administered today for c/o continued myalgia/arthralgia. Patient to start taking Meloxicam 15mg PO daily. Advised to return to clinic if symptoms do not improve. 05/02/2018 Appointment: Marcela Oshea WPtel: [phone] [id number] (30 min) Complex 05/02/2018 Patient Education: Patient [...] readings at home. Diabetes Mellitus -check labs Zlxwpywc-jkjpwme-fgfs bite-rx for doxycycline-follow up in 2 weeks 04/29/2018 Appointment: Marcela Oshea WPtel: [phone] [id number] (15 min) Moderate 04/29/2018 Patient Education: Patient Medication Summary Completed 04/29/2018 Appointment: Melida Ha WPtel: [phone] [facility] [place] (15 min) Moderate 04/15/2018 Appointment: Marcela Oshea WPtel: [phone] [place] [phone] (30 min) Complex 03/21/2018 Visit Plan: Hypertension [...] cymbalta 03/13/2018 Appointment: Melida Ha WPtel: [phone] [facility] [place] (30 min) Complex 03/13/2018 Patient Education: Patient Medication Summary Completed 03/13/2018 Visit Plan: DM-continue same medications-monitor blood sugars routinely as directed -rx for new glucometer and test strips provided Bipolar- currently depressed-patient start on vraylar-follow up in 2 weeks, sooner if needed. Patient and verbalied understanding of plan. Hypotension-stay off losartan 03/07/2018 Appointment: Marcela Oshea WPtel: [facility]5 [id number] (30 min) Complex 03/07/2018 Patient Education: Patient Medication Summary Completed 03/07/2018 Appointment: Melida Ha WPtel: 101 [facility] (15 min) Moderate 03/04/2018 Visit Plan: Hypotension-continue [...] patient. 02/28/2018 Appointment: Marcela Oshea WPtel: [facility]5 [id number] (30 min) Complex 02/28/2018 Patient Education: Patient [...] not improving. 02/13/2018 Appointment: Madeline Kennedy WPtel: [phone] [facility] (15 min) Moderate 02/13/2018 Patient Education: Patient Medication Summary Completed 02/13/2018 Referral: Sun Glynn Patient informed. Referral info faxed. Completed 02/01/2018 Visit Plan: DM-weight loss-not checking blood sugars-patient sent for labs today HTN-low oyacb-zjzatpd-wzirg labs Callus of foot and fissue of heel-refer to Dr Glynn for evaluation Esophageal Reflux - the patient has been counseled against excessive intake of caffeine, spicy foods, peppermint, and cinnamon - all of which can exacerbate esophageal reflux. The patient is to take medications as prescribed and call the office if the symptoms are not improving. 01/29/2018 Appointment: Marcela Oshea WPtel: [phone] [id number] (30 min) Complex 01/29/2018 Patient Education: Patient Medication Summary Completed 01/29/2018 Care Plan: Comp Metabolic Cancelled 01/29/2018 Care Plan: Cbc With Differential Cancelled 01/29/2018 Care Plan: %Hba1C LOINC : 62825-2 Cancelled 01/29/2018 Care Plan: Referral Order SNOMED-CT : [id number] Cancelled 01/29/2018 Visit Plan: Fatigue, malaise, joint [...] 08/27/2017 Appointment: Madeline Kennedy WPtel: [phone] [facility] [place] (15 min) Moderate 08/27/2017 [...] - 08/16/2017 Appointment: Melida Ha WPtel: [facility]9 [facility] (30 min) Complex 08/16/2017 Patient Education: Patient Medication Summary Completed 08/16/2017 Patient Education: Obesity Completed 08/16/2017 Appointment: Madeline Kennedy WPtel: [facility]6 [facility] (30 min) Complex 08/07/2017 Visit Plan: Shingles [...] contagious. 07/26/2017 Appointment: Madeline Kennedy WPtel: [phone] [facility] (15 min) Moderate 07/26/2017 Patient Education: Patient Medication Summary Completed 07/26/2017 Visit Plan: Cellulitis right foot-cultured today in the office- home health to reapply wound vac--appt with wound care on to evaluate for debridement- 07/03/2017 Appointment: Marcela Oshea WPtel: [phone] [id number] (30 min) Complex 07/03/2017 Patient Education: Patient Medication Summary Completed 07/03/2017 Visit Plan: Abrasion left arm - Pt was instructed to keep the wound clean, wash with antibacterial soap, use triple antibiotic ointment, call if redness, pustular drainage, or any other acute concerns. 06/29/2017 Appointment: Marcela Oshea WPtel: [facility]0 [id number] (15 min) Moderate 06/29/2017 Patient Education: Patient [...] Oshea WPtel: [facility]4 [phone] (15 min) Moderate 06/18/2017 Patient Education: Patient [...] Marcela Oshea WPtel: [facility] [place] (10 min) Simple 06/07/2017 Patient Education: [...] bite-continue doxycycline 05/17/2017 Appointment: Marcela Oshea WPtel: [address] [place], [place] [phone] (30 min) Complex 05/17/2017 Patient Education: Patient [...] Hospital Center. 05/04/2017 Appointment: Marcela Oshea WPtel: [phone] (30 min) Complex 05/04/2017 Patient Education: Patient [...] Marcela Oshea WPtel: [facility]0 [phone] (15 min) Moderate 03/15/2017 Patient Education: Patient Medication Summary Completed 03/15/2017 Appointment: Marcela Oshea WPtel: [facility]6 [phone] (30 min) Complex 03/12/2017 Visit Plan: Feng [...] Oshea WPtel: [phone] [facility] (15 min) Moderate 02/16/2017 Patient Education: Patient [...] controlled. 02/12/2017 Appointment: Marcela Oshea WPtel: [phone] (30 min) Complex 02/12/2017 Patient Education: Patient Medication Summary Completed 02/12/2017 Appointment: Marcela Oshea WPtel: [phone] (30 min) Complex 02/06/2017 Visit Plan: Diabetes [...] readings are starting to become less controlled. Dymwuuytz-epwxbkiv-vmkmbgwb to monitor Generalized weakness-refer for PT-patient refuses today but will consider 02/05/2017 Appointment: Marcela Oshea WPtel: [phone] [facility] [place] (30 min) Complex 02/05/2017 Patient Education: Patient Medication Summary Completed 02/05/2017 Appointment: Marcela Oshea WPtel: [address] [place], [place] [phone] (30 min) Complex 01/30/2017 Visit Plan: Acute confusion-uncontrolled diabetes-chronically noncompliant with treatment and stopped his insulin several months ago-r/o stroke vs DKA-Dr Ha in to evaluate patient-plan to admit for further work up and treatment-patient's called and she transported him to the hospital 01/29/2017 Appointment: Marcela Oshea WPtel: [facility]5 [phone] [place] (30 min) Complex 01/29/2017 Patient Education: Patient Medication Summary Completed 01/29/2017 Patient Education: Obesity Completed 01/29/2017 Visit Plan: Right foot pain-MRI shows foreign body-appt with Dr Grewal for evaluation on Sunday. 10/13/2016 Appointment: Marcela Oshea WPtel: [facility]5 [facility] [place] (15 min) Moderate 10/13/2016 Patient Education: Patient Medication Summary Completed 10/13/2016 Appointment: Marcela Oshea WPtel: [facility]5 [id number] (30 min) Complex 10/12/2016 Visit Plan: Right foot davs-pwmpnkdi-dfpdz washer dropped on foot-xray negative but pain continues to increase-recommend MRI of foot for further evaluation-refer to wound care for lesions on right foot, patient has diabetes and history of osteomyelitis-culture obtained today-continue oral abx- follow up in the office on , sooner if needed 10/09/2016 Visit Plan: Right foot jkki-hvmciwmd-mbjrw washer dropped on foot-xray negative but pain continues to increase-recommend MRI of foot for further evaluation-refer to wound care for lesions on right foot, patient has diabetes and history of osteomyelitis-culture obtained today-continue oral abx- follow up in the office on , sooner if needed 10/09/2016 Visit Plan: Right foot utjv-hbbksdcw-kigbf washer dropped on foot-xray negative but pain continues to increase-recommend MRI of foot for further evaluation-refer to wound care for lesions on right foot, patient has diabetes and history of osteomyelitis-culture obtained today-continue oral abx- follow up in the office on , sooner if needed 10/09/2016 Appointment: Marcela Oshea WPtel: [address] [place], [place] [phone] (30 min) Complex 10/09/2016 Patient Education: Patient Medication Summary Completed 10/09/2016 Visit Plan: Cellulitis - continue with oral antibiotics as previously directed, return to clinic as previously directed, call for acute change in symptoms, worsening redness, warmth, discharge. 10/06/2016 Appointment: Marcela Oshea WPtel: [address] [place], [place] [phone] (10 min) Simple 10/06/2016 Patient Education: Patient Medication Summary Completed 10/06/2016 Appointment: Marcela Oshea WPtel: [address] [place], [place] [phone] (30 min) Complex 08/24/2016 Referral: Sun Glynn Referral Completed 07/21/2016 Visit Plan: Low back pain- history of spinal fusion-patient for xray lumbar spine-RX sent to [facility] pharmacy and instructed on use- topical voltaren samples provided and instructed on use. Ok to use tylenol as n eeded as well. The patient is to call the office if the pain is worsening or does not improve. Pressure ulcer left 4th toe-refer to Dr Glynn for evaluation 07/18/2016 Appointment: Marcela Oshea WPtel: [address] [place], [place] [phone] (30 min) Complex 07/18/2016 Patient Education: Patient Medication Summary Completed 07/18/2016 Patient Education: Obesity Completed 07/18/2016 Care Plan: Referral Order SNOMED-CT : [id number] Cancelled 07/18/2016 Visit Plan: Diabetes Mellitus - [...] control. 06/22/2016 Appointment: Marcela Oshea WPtel: [phone] (30 min) Complex 06/22/2016 Patient [...] CBC today 05/23/2016 Appointment: Marcela Oshea WPtel: [phone] [facility] (30 min) Complex 05/23/2016 Patient [...] Oshea WPtel: [facility] (15 min) Moderate 05/15/2016 Patient [...] if you want blue minesh called into [facility]. xray lumbar spine flexeril as needed voltaren gel ulcer left 4th toe-refer to jail keeper . Low back pain- history of spinal fusion-patient for xray lumbar spine-RX sent to [facility] pharmacy and instructed on use-topical [...] you to follow up with your auto accessories installer. Fatigue, malaise, no appetitie, dizziness, palpitations, near [...] for fracture from injury . Right foot cqna-heatddle-dwgah washer dropped on foot-xray negative but pain [...] for fracture from injury . Right foot rbbi-iyyxqxgi-txrlg washer dropped on foot-xray negative but pain [...] for fracture from injury . Right foot sdor-rtegkdck-hszqm washer dropped on foot-xray negative but pain [...] if needed Fatigue-check labs . Bilateral hip yvmt-crktpfsn-wdctwvy IM injection administered today for c/o continued myalgia/arthralgia. Patient to start taking Meloxicam 15mg PO daily. Advised to return to clinic if symptoms do not improve. . DM-weight loss-not checking blood sugars-patient sent for labs today HTN-low wwxvi-rkgbuoh-rkrdn labs Callus of foot and fissue of [...] readings are starting to become less controlled. 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 HTN -heart rate not well controlled -decrease [...] allow for greater blood glucose control. Joint ryzw-hpccngih-tgwzcgy-symptoms have improved -stop meloxicam due to upset [...] readings at home. Diabetes Mellitus -check labs Idvjjnsl-nqhyeht-fagd bite-rx for doxycycline-follow up in 2 weeks [...]
[2019-04-24] MEDS ORDERED: NS IV 1000 ML 1,000 ML ONE (14:24)
[2019-04-24 14:28] LABS: BASOPHILS % (AUTO) 0 % (0-10); EOSINOPHILS # (AUTO) 0.1 10^3/uL (0.0-0.3); EOSINOPHILS % (AUTO) 1 % (0-10); HEMATOCRIT 43 % (40-54); LYMPHOCYTES # (AUTO) 2.1 X 10^3 (1.0-4.0); LYMPHOCYTES % (AUTO) 25 % (12-44); MEAN CORPUSCULAR HEMOGLOBIN 30 PG (25-34); MEAN CORPUSCULAR HGB CONC 35 G/DL (32-36); MEAN CORPUSCULAR VOLUME 86 FL (80-99); MEAN PLATELET VOLUME 10.7 FL (7.4-10.4); MONOCYTES # (AUTO) 0.8 X 10^3 (0.0-1.0); MONOCYTES % (AUTO) 9 % (0-12); NEUTROPHILS # (AUTO) 5.4 X 10^3 (1.8-7.8); NEUTROPHILS % (AUTO) 65 % (42-75); PLATELET COUNT 185 10^3/uL (130-400); RED CELL DISTRIBUTION WIDTH 14.3 % (10.0-14.5); WHITE BLOOD COUNT 8.3 10^3/uL (4.3-11.0)
--- OUTSIDE RECORDS SUMMARY | 2019-04-24 14:32 | XMS REPORT | CCD ---
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 [employer] [id number] 2018 Unknown Family history Father Diagnosis Age At Onset Hyperlipidemia Unknown Heart Attack Unknown Mother Diagnosis Age At Onset Hypertension Unknown Social History Social History Element Codes Description Effective Dates Marital status Unknown [place] 01/20/2016 Number of children Unknown 4 01/20/2016 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/[address]: 424829995 Never smoker 01/20/[address]: 752929626 Never drinks alcohol 01/20/2016 Allergies, Adverse Reactions, [...] Active 03/01/2017 Unknown 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 [...] I10 03/01/2017 Active 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 [...] aspart 100 unit/mL (3 mL) subcutaneous RxNorm: 1594096 10 Unit(s) SQ AC 04/14/2019 No Stop Date Active valsartan 80 mg tablet RxNorm: 406002 1/2 Tablet(s) PO daily 04/14/2019 04/14/2019 Inactive Topamax 25 mg tablet RxNorm: 456351 1 Tablet(s) PO BID 03/11/2019 04/13/2019 Inactive Topamax 25 mg tablet RxNorm: 323965 1 Tablet(s) PO BID 03/11/2019 03/10/2019 Inactive valsartan 40 mg tablet RxNorm: 778172 1/2 Tablet(s) PO daily 03/07/2019 04/13/2019 Inactive metoprolol succinate ER 25 mg tablet,extended release 24 hr RxNorm: 532059 1 Tablet(s) PO QPM 03/07/2019 03/09/2019 Inactive Cymbalta 30 mg capsule,delayed release RxNorm: 292341 1 Capsule(s) PO daily 02/27/2019 04/13/2019 Inactive Lyrica 50 mg capsule RxNorm: 273911 Capsule(s) PO daily 02/26/2019 06/25/2019 Active Cymbalta 60 mg capsule,delayed release RxNorm: 703972 1 Capsule(s) PO QAM 02/19/2019 02/26/2019 Inactive will call for refill- dose change Coreg 6.25 mg tablet RxNorm: 626314 1 Tablet(s) daily 02/19/2019 02/26/2019 Inactive clonazepam 1 mg tablet RxNorm: 924138 2 Tablet(s) PO HS 02/18/2019 06/14/2019 Active Tresiba FlexTouch U-200 insulin 200 unit/mL (3 mL) subcutaneous pen RxNorm: 0829917 50 Unit(s) SQ daily 01/08/2019 05/07/2019 Active please give him 30 day supply Protonix 40 mg tablet,delayed release RxNorm: 105574 1 Tablet(s) PO daily 12/31/2018 01/29/2019 Inactive Tresiba FlexTouch U-200 insulin 200 unit/mL (3 mL) subcutaneous pen RxNorm: 4891694 50 Unit(s) SQ daily 12/31/2018 01/07/2019 Inactive please give him 30 day supply Augmentin 500 mg-125 mg tablet RxNorm: 574174 1 Tablet(s) PO TID 12/26/2018 01/04/2019 Inactive Augmentin 500 mg-125 mg tablet RxNorm: 675833 1 Tablet(s) PO TID 12/26/2018 12/25/2018 Inactive ProAir HFA 90 mcg/actuation aerosol inhaler RxNorm: 1085985 2 Puff(s) INH QID as needed 11/18/2018 04/13/2019 Inactive Lyrica 50 mg capsule RxNorm: 340040 Capsule(s) PO daily 11/13/2018 02/07/2019 Inactive Cymbalta 30 mg capsule,delayed release RxNorm: 632330 1 Capsule(s) PO QAM 11/13/2018 02/18/2019 Inactive Lyrica 50 mg capsule RxNorm: 047153 Capsule(s) PO daily 11/13/2018 11/12/2018 Inactive Symbicort 160 mcg-4.5 mcg/actuation HFA aerosol inhaler RxNorm: 4602660 2 Puff(s) INH BID 11/12/2018 12/11/2018 Inactive azithromycin 500 mg tablet RxNorm: 270643 500mg on day 1 then 250 mg daily x 4 more day Tablet(s) PO 11/07/2018 11/06/2018 Inactive 500mg on day 1 and then 250mg daily 2-4 cefdinir 300 mg capsule RxNorm: 207070 1 Capsule(s) PO BID 11/07/2018 11/06/2018 Inactive albuterol sulfate 2.5 mg/3 mL (0.083 %) solution for nebulization RxNorm: 465997 3 Milliliter(s) INH UD 11/07/2018 04/13/2019 Inactive azithromycin 500 mg tablet RxNorm: 883616 500mg on day 1 then 250 mg daily x 4 more day Tablet(s) PO 11/07/2018 01/07/2019 Inactive 500mg on day 1 and then 250mg daily 2-4 cefdinir 300 mg capsule RxNorm: 253105 1 Capsule(s) PO BID 11/07/2018 11/13/2018 Inactive Levaquin 500 mg tablet RxNorm: 503724 1 Tablet(s) PO daily TAKE ONE TABLET BY MOUTH DAILY UNTIL GONE 10/31/2018 11/13/2018 Inactive Levaquin 500 mg tablet RxNorm: 630110 1 Tablet(s) PO daily 10/30/2018 11/12/2018 Inactive valsartan 80 mg tablet RxNorm: 884540 1/2 Tablet(s) PO daily 10/23/2018 03/06/2019 Inactive doxycycline hyclate 100 mg tablet RxNorm: 8020330 1 Tablet(s) PO BID 10/21/2018 10/27/2018 Inactive ketorolac 60 mg/2 mL intramuscular solution RxNorm: 4796794 Milliliter(s) IM 10/21/2018 10/21/2018 Inactive Levaquin 500 mg tablet RxNorm: 682970 1 Tablet(s) PO daily 10/17/2018 10/31/2018 Inactive albuterol sulfate 2.5 mg/3 mL (0.083 %) solution for nebulization RxNorm: 374913 3 Milliliter(s) INH UD 10/14/2018 11/06/2018 Inactive Levaquin 500 mg tablet RxNorm: 574211 1 Tablet(s) PO daily 10/14/2018 10/16/2018 Inactive Tessalon Perles 100 mg capsule RxNorm: 810063 1-2 Capsule(s) PO TID PRN 10/14/2018 04/13/2019 Inactive albuterol sulfate 2.5 mg/3 mL (0.083 %) solution for nebulization RxNorm: 533091 3 Milliliter(s) INH UD 09/30/2018 10/13/2018 Inactive Kenalog 40 mg/mL suspension for injection RxNorm: 4923201 1.5 Milliliter(s) Inj 09/30/2018 09/30/2018 Inactive Coreg 6.25 mg tablet RxNorm: 785214 TAKE ONE TABLET BY MOUTH TWICE A DAY 09/30/2018 02/18/2019 Inactive Keflex 500 mg capsule RxNorm: 867593 1 Capsule(s) PO TID 09/27/2018 10/03/2018 Inactive prednisone 20 mg tablet RxNorm: 214187 2 Tablet(s) PO daily 09/27/2018 09/29/2018 Inactive Kenalog 40 mg/mL suspension for injection RxNorm: 4563697 Milliliter(s) Inj 09/11/2018 09/11/2018 Inactive Zyrtec 10 mg tablet RxNorm: 2189644 1 Tablet(s) PO daily 09/09/2018 04/13/2019 Inactive Keflex 500 mg capsule RxNorm: 735718 1 Capsule(s) PO TID 09/09/2018 09/15/2018 Inactive Tresiba FlexTouch U-200 insulin 200 unit/mL (3 mL) subcutaneous pen RxNorm: 9239643 50 Unit(s) SQ daily 08/30/2018 08/29/2018 Inactive please give him 30 day supply Tresiba FlexTouch U-200 insulin 200 unit/mL (3 mL) subcutaneous pen RxNorm: 8166943 50 Unit(s) SQ daily 08/30/2018 09/28/2018 Inactive please give him 30 day supply Novolog Flexpen U-100 Insulin aspart 100 unit/mL subcutaneous RxNorm: 4115984 8 Unit(s) SQ AC 08/13/2018 04/13/2019 Inactive Novolog Flexpen U-100 Insulin aspart 100 unit/mL subcutaneous RxNorm: 5791328 8 Unit(s) SQ AC 07/22/2018 2018 Inactive this is an update on his medication Novolog Flexpen U-100 Insulin aspart 100 unit/mL subcutaneous RxNorm: 2504765 12 Unit(s) SQ AC 07/05/2018 07/21/2018 Inactive this is an update on his medication Toujeo SoloStar U-300 Insulin 300 unit/mL (1.5 mL) subcutaneous pen RxNorm: 4664188 INJECT 50 UNITS UNDER THE SKIN DAILY 07/01/2018 08/29/2018 Inactive Mucinex 600 mg tablet, extended release RxNorm: 782147 1 Tablet(s) PO BID 06/28/2018 07/04/2018 Inactive Zofran 4 mg tablet RxNorm: 777073 1 Tablet(s) PO TID as needed nausea 06/28/2018 07/02/2018 Inactive Kenalog 40 mg/mL suspension for injection RxNorm: 4209295 Milliliter(s) Inj 06/28/2018 06/28/2018 Inactive Flonase Allergy Relief 50 mcg/actuation nasal spray,suspension RxNorm: 6130102 1 [place] NASAL BID 06/28/2018 07/08/2018 Inactive Lyrica 50 mg capsule RxNorm: 530953 Capsule(s) PO daily 06/24/2018 07/06/2018 Inactive Novolog Flexpen U-100 Insulin aspart 100 unit/mL subcutaneous RxNorm: 9807937 10 Unit(s) SQ AC 06/18/2018 07/04/2018 Inactive this is an update on his medication Lasix 20 mg tablet RxNorm: 675000 1 Tablet(s) PO BIW 06/12/2018 07/02/2018 Inactive atorvastatin 80 mg tablet RxNorm: 505006 1 Tablet(s) PO QHS 06/10/2018 12/06/2018 Inactive clonazepam 1 mg tablet RxNorm: 069021 2 Tablet(s) PO HS as needed 06/10/2018 06/08/2018 Inactive clonazepam 1 mg tablet RxNorm: 584331 2 Tablet(s) PO HS 06/10/2018 02/17/2019 Inactive Lyrica 50 mg capsule RxNorm: 165863 Capsule(s) PO daily 06/10/2018 07/08/2018 Inactive Lasix 20 mg tablet RxNorm: 1 Tablet(s) PO TIW 06/04/2018 06/11/2018 Inactive Toujeo SoloStar U-300 Insulin 300 unit/mL (1.5 mL) subcutaneous pen RxNorm: 8098006 50 Unit(s) SQ daily 05/07/2018 06/30/2018 Inactive meloxicam 15 mg tablet RxNorm: 461641 15 Milligram(s) PO daily 05/02/2018 05/12/2018 Inactive ketorolac 30 mg/mL injection solution RxNorm: 599837 2 Milliliter(s) Inj 05/02/2018 05/02/2018 Inactive Toujeo SoloStar U-300 Insulin 300 unit/mL (1.5 mL) subcutaneous pen RxNorm: 4772852 45 Unit(s) daily 04/29/2018 05/02/2018 Inactive clonazepam 1 mg tablet RxNorm: 385016 1 Tablet(s) PO Q8 as needed 04/29/2018 06/09/2018 Inactive doxycycline hyclate 100 mg tablet RxNorm: 7899119 1 Tablet(s) PO BID 04/29/2018 05/12/2018 Inactive Cymbalta 30 mg capsule,delayed release RxNorm: 941945 1 Capsule(s) PO QAM 03/13/2018 10/08/2018 Inactive Lexapro 10 mg tablet RxNorm: 286705 1 Tablet(s) PO QPM 02/28/2018 03/03/2018 Inactive Toujeo SoloStar U-300 Insulin 300 unit/mL (1.5 mL) subcutaneous pen RxNorm: 7522335 20 Unit(s) daily 02/28/2018 03/03/2018 Inactive Protonix 40 mg tablet,delayed release RxNorm: 051333 1 Tablet(s) PO daily 01/29/2018 06/09/2018 Inactive clonazepam 1 mg tablet RxNorm: 130866 1 Tablet(s) PO Q8 as needed 12/12/2017 03/10/2018 Inactive Tamiflu 75 mg capsule RxNorm: 522252 1 Capsule(s) PO BID 11/29/2017 12/03/2017 Inactive doxycycline hyclate 100 mg capsule RxNorm: 3128787 1 Capsule(s) PO BID 09/07/2017 09/20/2017 Inactive doxycycline hyclate 100 mg capsule RxNorm: 9292933 1 Capsule(s) PO BID 08/27/2017 09/06/2017 Inactive prednisone 20 mg tablet RxNorm: 565512 2 Tablet(s) PO daily 08/27/2017 08/31/2017 Inactive clopidogrel 75 mg tablet RxNorm: 708983 1 Tablet(s) PO daily 08/24/2017 06/09/2018 Inactive atorvastatin 40 mg tablet RxNorm: 804764 1 Tablet(s) PO QHS 08/24/2017 02/27/2018 Inactive losartan 25 mg tablet RxNorm: 416851 TAKE ONE TABLET BY MOUTH DAILY 08/22/2017 06/09/2018 Inactive Toujeo SoloStar 300 unit/mL (1.5 mL) subcutaneous insulin pen RxNorm: 5949344 45 Unit(s) daily 08/17/2017 08/20/2017 Inactive mupirocin 2 % topical ointment RxNorm: 443107 1 Application TOP TID to the lesions on chest 08/16/2017 08/25/2017 Inactive Toujeo SoloStar 300 unit/mL (1.5 mL) subcutaneous insulin pen RxNorm: 3706973 40 Unit(s) daily 08/16/2017 08/16/2017 Inactive valacyclovir 1 gram tablet RxNorm: 495839 1 Tablet(s) PO TID 07/26/2017 08/01/2017 Inactive clonazepam 1 mg tablet RxNorm: 130782 1 Tablet(s) PO Q8 as needed 07/03/2017 09/30/2017 Inactive Levaquin 500 mg tablet RxNorm: 872881 1 Tablet(s) PO daily 06/22/2017 06/25/2017 Inactive Levaquin 500 mg tablet RxNorm: 785545 1 Tablet(s) PO daily 06/18/2017 06/21/2017 Inactive losartan 25 mg tablet RxNorm: 065602 1 Tablet(s) PO daily 06/18/2017 08/16/2017 Inactive nystatin 100,000 unit/mL oral suspension RxNorm: 040060 5 Milliliter(s) PO QID Swish et swallow 06/18/2017 06/17/2017 Inactive nystatin 100,000 unit/mL oral suspension RxNorm: 989439 5 Milliliter(s) PO QID Swish et swallow 06/18/2017 06/27/2017 Inactive Cipro 500 mg tablet RxNorm: 847303 1 Tablet(s) PO BID 06/12/2017 06/18/2017 Inactive Cipro 500 mg tablet RxNorm: 449357 1 Tablet(s) PO BID 06/12/2017 06/11/2017 Inactive Toujeo SoloStar 300 unit/mL (1.5 mL) subcutaneous insulin pen RxNorm: 6383932 INJECT 10 UNITS UNDER THE SKIN DAILY 06/12/2017 08/15/2017 Inactive Keflex 500 mg capsule RxNorm: 241305 1 Capsule(s) PO TID 06/07/2017 06/13/2017 Inactive doxycycline hyclate 100 mg capsule RxNorm: 1719767 1 Capsule(s) PO BID 05/17/2017 05/21/2017 Inactive doxycycline hyclate 100 mg capsule RxNorm: 3202832 1 Capsule(s) PO BID 05/11/2017 05/16/2017 Inactive losartan 25 mg tablet RxNorm: 860186 1 Tablet(s) PO daily 03/01/2017 06/17/2017 Inactive atorvastatin 40 mg tablet RxNorm: 170231 1 Tablet(s) PO daily 03/01/2017 08/23/2017 Inactive clopidogrel 75 mg tablet RxNorm: 746661 1 Tablet(s) PO daily 03/01/2017 08/23/2017 Inactive Flonase Allergy Relief 50 mcg/actuation nasal spray,suspension RxNorm: 0732435 2 [place] NASAL daily 02/16/2017 02/25/2017 Inactive Augmentin 875 mg-125 mg tablet RxNorm: 972817 1 Tablet(s) PO BID 02/16/2017 02/22/2017 Inactive GET PROBIOTIC TO TAKE WHILE ON ABX Tamiflu 75 mg capsule RxNorm: 310740 1 Capsule(s) PO BID 02/16/2017 02/20/2017 Inactive ceftriaxone 500 mg solution for injection RxNorm: 6311513 1 Milliliter(s) Inj 02/16/2017 02/16/2017 Inactive Kenalog 40 mg/mL suspension for injection RxNorm: 8638173 1 Milliliter(s) Inj 02/16/2017 02/16/2017 Inactive Toujeo SoloStar 300 unit/mL (1.5 mL) subcutaneous insulin pen RxNorm: 9850733 25 Unit(s) SQ QAM 02/12/2017 06/10/2017 Inactive Toujeo SoloStar 300 unit/mL (1.5 mL) subcutaneous insulin pen RxNorm: 5026492 10 Unit(s) SQ QAM 02/05/2017 02/11/2017 Inactive lisinopril 10 mg tablet RxNorm: 428281 1 Tablet(s) PO daily 02/01/2017 02/28/2017 Inactive atorvastatin 40 mg tablet RxNorm: 278244 1 Tablet(s) PO daily 02/01/2017 02/28/2017 Inactive doxycycline hyclate 100 mg capsule RxNorm: 4220581 1 Capsule(s) PO BID 02/01/2017 02/10/2017 Inactive clonazepam 1 mg tablet RxNorm: 615717 1 Tablet(s) PO Q8 as needed 10/09/2016 01/05/2017 Inactive ceftriaxone 1 gram solution for injection RxNorm: 1483892 Inj 10/06/2016 10/06/2016 Inactive cyclobenzaprine 10 mg tablet RxNorm: 939814 1/2-1 Tablet(s) PO TID PRN 07/18/2016 01/28/2017 Inactive clonazepam 1 mg tablet RxNorm: 881465 1 Tablet(s) PO Q8 as needed 05/31/2016 05/29/2016 Inactive clonazepam 1 mg tablet RxNorm: 515851 1 Tablet(s) PO Q8 as needed 05/31/2016 08/28/2016 Inactive Toujeo SoloStar 300 unit/mL (1.5 mL) subcutaneous insulin pen RxNorm: 6153085 10 Unit(s) SQ daily 05/23/2016 01/28/2017 Inactive Crestor 10 mg tablet RxNorm: 767583 1 Tablet(s) PO QHS 05/19/2016 01/28/2017 Inactive Crestor 10 mg tablet RxNorm: 656779 1 Tablet(s) PO QHS 05/19/2016 05/18/2016 Inactive clonazepam 1 mg tablet RxNorm: 572961 1 Tablet(s) PO Q8 as needed 04/25/2016 05/30/2016 Inactive prednisone 20 mg tablet RxNorm: 548748 3 Tablet(s) PO daily 02/11/2016 02/10/2016 Inactive prednisone 20 mg tablet RxNorm: 389630 3 Tablet(s) PO daily 02/11/2016 05/14/2016 Inactive Kenalog 40 mg/mL suspension for injection RxNorm: 4883058 Milliliter(s) Inj 01/20/2016 01/20/2016 Inactive multivitamin tablet RxNorm: 1 Tablet(s) PO daily No Start Date Active aspirin 81 mg tablet,delayed release RxNorm: 457533 1 Tablet(s) PO daily No Start Date Active Brilinta 90 mg tablet RxNorm: 4079860 1 Tablet(s) PO BID No Start Date Active pantoprazole 40 mg tablet,delayed release RxNorm: 003211 1 Tablet(s) PO daily No Start Date Active isosorbide mononitrate ER 30 mg tablet,extended release 24 hr RxNorm: 466773 1 Tablet(s) PO daily No Start Date Active acetaminophen 500 mg tablet RxNorm: 990802 1-2 Tablet(s) PO as needed No Start Date Active clopidogrel 75 mg tablet RxNorm: 810785 1 Tablet(s) PO daily No Start Date 02/28/2017 Inactive Novolog Flexpen U-100 Insulin aspart 100 unit/mL subcutaneous RxNorm: 0052942 5 units with breakfast lunch and 10 supper Unit(s) SQ No Start Date 06/17/2018 Inactive clonazepam 1 mg tablet RxNorm: 277070 1 Tablet(s) PO QHS No Start Date 04/24/2016 Inactive Coreg 6.25 mg tablet RxNorm: 284075 1 Tablet(s) PO BID No Start Date 09/29/2018 Inactive acyclovir 400 mg tablet RxNorm: 298732 2 Tablet(s) PO 5x daily No Start Date 02/28/2017 Inactive Lyrica 50 mg capsule RxNorm: 310704 Capsule(s) PO BID No Start Date 06/09/2018 Inactive Vraylar 3 mg capsule RxNorm: 9137416 1 Capsule(s) PO daily No Start Date 03/12/2018 Inactive valsartan 80 mg tablet RxNorm: 804488 1 Tablet(s) PO daily No Start Date 10/22/2018 Inactive Medication Administered Medication Codes Instructions Start Date Status ketorolac 60 mg/2 mL intramuscular solution RxNorm: 6968372 Milliliter 10/21/2018 No longer Active Kenalog 40 mg/mL suspension for injection RxNorm: 8138807 1.5Milliliter 09/30/2018 No longer Active Kenalog 40 mg/mL suspension for injection RxNorm: 7119147 Milliliter 09/11/2018 No longer Active Kenalog 40 mg/mL suspension for injection RxNorm: 2662176 Milliliter 06/28/2018 No longer Active ketorolac 30 mg/mL injection solution RxNorm: 960419 2Milliliter 05/02/2018 No longer Active ceftriaxone 500 mg solution for injection RxNorm: 6205506 1Milliliter 02/16/2017 No longer Active Kenalog 40 mg/mL suspension for injection RxNorm: 7789729 1Milliliter 02/16/2017 No longer Active ceftriaxone 1 gram solution for injection RxNorm: 3757955 10/06/2016 No longer Active Kenalog 40 mg/mL suspension for injection RxNorm: 6638662 Milliliter 01/20/2016 No longer Active Immunizations Vaccine [...] ICD-9: 401.1 03/07/2019 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: I25.10 [...] Item Item Code Result Date Culture Sputum 543609 LOWER RESPIRATORY TRACT CULTURE SEE NOTES 11/14/2018 Culture Sputum 660615 LOWER RESPIRATORY TRACT CULTURE SEE NOTES 10/16/2018 LIPID GRP [id number] CHOLESTEROL TNP:Duplicate Order 09/10/2018 LIPID GRP [id number] Triglyceride TNP:Duplicate Order 09/10/2018 LIPID GRP HDL CHOLESTEROL TNP:Duplicate Order 09/10/2018 LIPID GRP [id number] Chol/HDL Ratio TNP:Duplicate Order 09/10/2018 LIPID GRP [id number] LDL Cholesterol TNP:Duplicate Order 09/10/2018 A1C HPLC 1431917 Hgb A1c 87681-8 TNP:Duplicate Order 09/10/2018 C Diff An [id number] GDH TNP:Lab Request 06/22/2018 C Diff An [id number] Toxin A/B TNP:Lab Request 06/22/2018 C Diff An [id number] C Diff Analyzer TNP:Lab Request 06/22/2018 C Diff An [id number] IC OK? TNP:Lab Request 06/22/2018 CBC 7599265 WBC 6.4 10e9/L 05/02/2018 CBC 8922620 RBC 5.60 10e12/L 05/02/2018 CBC 7856666 HEMOGLOBIN 17.0 g/dL 05/02/2018 CBC 9798644 HEMATOCRIT 48.0 % 05/02/2018 CBC 6901337 MCV 85.7 fL 05/02/2018 CBC 3185426 MCH 30.4 pg 05/02/2018 CBC 7489397 MCHC 35.4 g/dL 05/02/2018 CBC 6423908 PLATELET COUNT 166 10e9/L 05/02/2018 CBC 8532160 Mean Plt Volume 11.6 fL 05/02/2018 CBC 0136451 Neut Auto 48.6 % 05/02/2018 CBC 1937534 Lymph Auto 41.7 % 05/02/2018 CBC 9539406 [place] Auto 8.1 % 05/02/2018 CBC 5589831 RDW 13.1 % 05/02/2018 CBC 4938627 Eos Auto 1.1 % 05/02/2018 CBC 8692646 Baso Auto 0.5 % 05/02/2018 CBC 4896565 Neutrophil Abs 3.11 10e9/L 05/02/2018 CBC 8476639 Lymphocyte Abs 2.67 10e9/L 05/02/2018 CBC 0340499 Monocyte Abs 0.52 10e9/L 05/02/2018 CBC 4806184 Eosinophil Abs 0.07 10e9/L 05/02/2018 CBC 2714821 RDW-SD 40.0 fL 05/02/2018 CBC 6410248 Basophil Abs 0.03 10e9/L 05/02/2018 CHEM 14 3165054 AST 17 U/L 05/02/2018 CHEM 14 9779505 ALT 17 U/L 05/02/2018 CHEM 14 3936545 BUN 17 mg/dL 05/02/2018 CHEM 14 0719129 ALBUMIN 4.0 g/dL 05/02/2018 CHEM 14 5238371 CHLORIDE 97 mmol/L 05/02/2018 CHEM 14 9801315 Bili Total 0.9 mg/dL 05/02/2018 CHEM 14 5132014 ALK PHOS 67 U/L 05/02/2018 CHEM 14 5620133 SODIUM 135 mmol/L 05/02/2018 CHEM 14 0409402 CREATININE 1.18 mg/dL 05/02/2018 CHEM 14 7577174 CALCIUM 9.4 mg/dL 05/02/2018 CHEM 14 5140751 POTASSIUM 4.4 mmol/L 05/02/2018 CHEM 14 2924843 TOTAL PROTEIN 6.9 g/dL 05/02/2018 CHEM 14 6453263 GLUCOSE 316 mg/dL 05/02/2018 CHEM 14 2776136 Bicarbonate 29 mmol/L 05/02/2018 CHEM 14 9746763 AGAP 9 mmol/L 05/02/2018 MEAN GLUC 5300922 Calc Mean Gluc 283 mg/dL 05/02/2018 A1C HPLC 0162615 Hgb A1c 14377-9 11.5 % 05/02/2018 GFR CALC 7751288 GFR Non Afr Amr >60 mL/min 05/02/2018 GFR CALC 4496503 GFR Afr Amr >60 mL/min 05/02/2018 [facility] Gold [id number] [facility] Gold Complete 02/28/2018 GFR CALC 2291967 GFR Non Afr Amr >60 mL/min 02/28/2018 GFR CALC 8319052 GFR Afr Amr >60 mL/min 02/28/2018 UA W/CII 9900197 UA Urine Appear Normal 02/28/2018 UA W/CII 1874669 UA Protein 1+ 02/28/2018 UA W/CII 4156070 UA Hemoglobin Negative 02/28/2018 UA W/CII 5822892 UA Glucose 4+ 02/28/2018 UA W/CII 4971975 UA Ketones Trace 02/28/2018 UA W/CII 8872976 UA pH 5.5 02/28/2018 UA W/CII 9213224 U Spec [place] 1.015 02/28/2018 UA W/CII 7202526 UA Bilirubin Negative 02/28/2018 UA W/CII 1003809 UA Nitrite NEG 02/28/2018 UA W/CII 2256633 UA Leuk [place] Negative 02/28/2018 MICR 6651842 UA WBC/hpf 1 02/28/2018 MICR 6474856 UA RBC hpf 2 02/28/2018 MICR 0448248 UA WBC auto 3.8 /uL 02/28/2018 MICR 5667423 UA RBC auto 12.2 /uL 02/28/2018 MICR 2889281 UA SQ EPI auto 2.3 /uL 02/28/2018 MICR 6423742 UA H Cast auto 0.10 /uL 02/28/2018 CBC 5689128 WBC 6.4 10e9/L 02/28/2018 CBC 2890850 RBC 5.51 10e12/L 02/28/2018 CBC 7411175 HEMOGLOBIN 16.7 g/dL 02/28/2018 CBC 0256565 HEMATOCRIT 46.9 % 02/28/2018 CBC 7738703 MCV 85.1 fL 02/28/2018 CBC 3948495 MCH 30.3 pg 02/28/2018 CBC 1107600 MCHC 35.6 g/dL 02/28/2018 CBC 5647915 PLATELET COUNT 173 10e9/L 02/28/2018 CBC 6984708 Mean Plt Volume 11.6 fL 02/28/2018 CBC 6967133 Neut Auto 51.8 % 02/28/2018 CBC 2108668 Lymph Auto 39.9 % 02/28/2018 CBC 3148545 [place] Auto 7.3 % 02/28/2018 CBC 3926408 RDW 13.3 % 02/28/2018 CBC 3280493 Eos Auto 0.8 % 02/28/2018 CBC 4335961 Baso Auto 0.2 % 02/28/2018 CBC 4241159 Neutrophil Abs 3.32 10e9/L 02/28/2018 CBC 8819046 Lymphocyte Abs 2.55 10e9/L 02/28/2018 CBC 7859107 Monocyte Abs 0.47 10e9/L 02/28/2018 CBC 0847085 Eosinophil Abs 0.05 10e9/L 02/28/2018 CBC 9691391 RDW-SD 40.8 fL 02/28/2018 CBC 7807846 Basophil Abs 0.01 10e9/L 02/28/2018 CHEM 14 9706231 AST 17 U/L 02/28/2018 CHEM 14 8406088 ALT 17 U/L 02/28/2018 CHEM 14 9591546 BUN 20 mg/dL 02/28/2018 CHEM 14 7367732 ALBUMIN 4.1 g/dL 02/28/2018 CHEM 14 7488935 CHLORIDE 97 mmol/L 02/28/2018 CHEM 14 3449348 Bili Total 1.3 mg/dL 02/28/2018 CHEM 14 1118437 ALK PHOS 78 U/L 02/28/2018 CHEM 14 3137036 SODIUM 135 mmol/L 02/28/2018 CHEM 14 5090060 CREATININE 1.09 mg/dL 02/28/2018 CHEM 14 2891046 CALCIUM 9.6 mg/dL 02/28/2018 CHEM 14 0486960 POTASSIUM 3.8 mmol/L 02/28/2018 CHEM 14 8221376 TOTAL PROTEIN 7.3 g/dL 02/28/2018 CHEM 14 5559066 GLUCOSE 349 mg/dL 02/28/2018 CHEM 14 1359794 Bicarbonate 29 mmol/L 02/28/2018 CHEM 14 2827142 AGAP 9 mmol/L 02/28/2018 [place] Spotted Fever Igg/Igm 658292 FEI MT SPOTTED FEVER IGM EIA . 09/05/2017 [place] Spotted Fever Igg/Igm 576487 RMSF, IGM 0.17 index 09/05/2017 [place] Spotted Fever Igg/Igm 021568 FEI MT SPOTTED FEVER IGG EIA FLEX . 09/05/2017 [place] Spotted Fever Igg/Igm 075299 RMSF, IGG SCREEN-FLEX Positive 09/05/2017 Fei Mtn Spot'D Fev Igg 407607 RMSF, IGG- TITER IFA <1:64 09/05/2017 Ehrlichia Chaffeensis Antibody Igm 785635 EHRLICHIA CHAFFEENSIS IGM < 1:16 09/03/2017 Ehrlichia Chaffeensis Antibody Igg 389846 EHRLICHIA CHAFFEENSIS IGG <1:64 09/03/2017 Lymes Disease Total Antibodies With Western Blot Reflex B. BURGDORFERI, IGG/IGM 0.223 08/30/2017 Lymes Disease Total Antibodies With Western Blot Reflex 08/30/2017 C-Reactive Protein Qnt Crqnt CRP 0.00 mg/dl 08/27/2017 Sed Rate Ord21 ESR 8 mm/hr 08/27/2017 Comp Metabolic Mhe367 NA 135 mEq/L 08/16/2017 Comp Metabolic Vva488 K 4.1 mEq/L 08/16/2017 Comp Metabolic Eux249 CL 98 mEq/L 08/16/2017 Comp Metabolic Jek321 CO2 28.0 mEq/L 08/16/2017 Comp Metabolic Ktf713 ANION GAP 13 08/16/2017 Comp Metabolic Kng776 GLUCOSE 299 mg/dL 08/16/2017 Comp Metabolic Gnk058 Creat 0.9 mg/dL 08/16/2017 Comp Metabolic Cst807 eGFR 90 ml/min/1.73m2 08/16/2017 Comp Metabolic Dzu589 BUN 20 mg/dL 08/16/2017 Comp Metabolic Xgv698 B/C Ratio 21.5 Ratio 08/16/2017 Comp Metabolic Wbh743 CALCIUM 9.2 mg/dL 08/16/2017 Comp Metabolic Gtz566 ALK PHOS 84 U/L 08/16/2017 Comp Metabolic Kqh986 AST(SGOT) 19 U/L 08/16/2017 Comp Metabolic Aqh341 ALT(SGPT) 24 U/L 08/16/2017 Comp Metabolic Zjx540 BILI T 1.1 mg/dL 08/16/2017 Comp Metabolic Nzq922 ALBUMIN 4.2 g/dL 08/16/2017 Comp Metabolic Eqp205 TPRO 7.2 g/dL 08/16/2017 Comp Metabolic Hbm227 GLOB 3.0 g/dL 08/16/2017 Comp Metabolic Tjl001 A/G Ratio 1.4 Ratio 08/16/2017 Comp Metabolic Iys128 Osmo 284 mOsmo 08/16/2017 %Hba1C Lmy182 % HbA1c 13074- 6 12.5 % 08/16/2017 %Hba1C Fpc168 Gluc Ave 312 mg/dL 08/16/2017 Urine Culture Ucult Preliminary NO Growth Day 1 06/23/2017 Urine Culture Ucult Complete NO Growth Day 2 06/23/2017 C RAP A SC [id number] Strep A Negative 06/08/2017 %Hba1C Skx274 % HbA1c 12641- 6 9.5 % 05/04/2017 %Hba1C Mxp294 Gluc Ave 226 mg/dL 05/04/2017 Tsh Ord6 [...] 31.7 pg 05/04/2017 Cbc With Differential Ord2 [place]% 8.5 % 05/04/2017 Cbc With Differential Ord2 [...] 2.48 K/ul 05/04/2017 Cbc With Differential Ord2 [place] ABS# 0.5 K/ul 05/04/2017 Cbc With Differential Ord2 Eos ABS# 0.1 K/ul 05/04/2017 Cbc With Differential Ord2 Baso ABS# 0.0 K/ul 05/04/2017 Comp Metabolic Fll963 NA 135 mEq/L 05/04/2017 Comp Metabolic Qos711 K 4.2 mEq/L 05/04/2017 Comp Metabolic Dmn357 CL 99 mEq/L 05/04/2017 Comp Metabolic Pdr899 CO2 26.0 mEq/L 05/04/2017 Comp Metabolic Btb873 ANION GAP 14 05/04/2017 Comp Metabolic Lhh818 GLUCOSE 277 mg/dL 05/04/2017 Comp Metabolic Siz059 Creat 0.9 mg/dL 05/04/2017 Comp Metabolic Puw387 eGFR 96 ml/min/1.73m2 05/04/2017 Comp Metabolic Yak389 BUN 23 mg/dL 05/04/2017 Comp Metabolic Mlq829 B/C Ratio 26.1 Ratio 05/04/2017 Comp Metabolic Cox461 CALCIUM 8.9 mg/dL 05/04/2017 Comp Metabolic Wbx081 ALK PHOS 81 U/L 05/04/2017 Comp Metabolic Lfi623 AST(SGOT) 21 U/L 05/04/2017 Comp Metabolic Hgo734 ALT(SGPT) 27 U/L 05/04/2017 Comp Metabolic Kxt392 BILI T 1.2 mg/dL 05/04/2017 Comp Metabolic Gia195 ALBUMIN 4.0 g/dL 05/04/2017 Comp Metabolic Bjx919 TPRO 6.7 g/dL 05/04/2017 Comp Metabolic Zhm117 GLOB 2.7 g/dL 05/04/2017 Comp Metabolic Fsm093 A/G Ratio 1.5 Ratio 05/04/2017 Comp Metabolic Bbv543 Osmo 284 mOsmo 05/04/2017 C A/B FLU [id number] Influenza A Scr Negative 02/16/2017 C A/B FLU [id number] Influenza B Scr Positive 02/16/2017 Cbc With [...] 30.3 pg 05/23/2016 Cbc With Differential Ord2 [place]% 8.8 % 05/23/2016 Cbc With Differential Ord2 [...] 2.07 K/ul 05/23/2016 Cbc With Differential Ord2 [place] ABS# 0.5 K/ul 05/23/2016 Cbc With Differential Ord2 Eos ABS# 0.1 K/ul 05/23/2016 Cbc With Differential Ord2 Baso ABS# 0.0 K/ul 05/23/2016 Lipid Ord30 CHOL 397 mg/dL 05/17/2016 Lipid Ord30 HDL 48.0 mg/dl 05/17/2016 Lipid Ord30 TRIG 578 mg/dL 05/17/2016 Lipid Ord30 LDL Unable to calculate Due to elevated triglycerides mg/dL 05/17/2016 Lipid Ord30 C/HDL 8.3 Ratio 05/17/2016 %Hba1C Jqt430 % HbA1c 11641- 6 12.4 % 05/16/2016 %Hba1C Pgg115 Gluc Ave 309 mg/dL 05/16/2016 Cbc With [...] 30.4 pg 05/15/2016 Cbc With Differential Ord2 [place]% 7.8 % 05/15/2016 Cbc With Differential Ord2 [...] 2.04 K/ul 05/15/2016 Cbc With Differential Ord2 [place] ABS# 0.5 K/ul 05/15/2016 Cbc With Differential Ord2 Eos ABS# 0.1 K/ul 05/15/2016 Cbc With Differential Ord2 Baso ABS# 0.0 K/ul 05/15/2016 Tsh Ord6 hTSH II 1.70 uIU/mL 05/15/2016 Comp Metabolic Hqr888 NA 135 mEq/L 05/15/2016 Comp Metabolic Cnc585 K 3.9 mEq/L 05/15/2016 Comp Metabolic Kil165 CL 96 mEq/L 05/15/2016 Comp Metabolic Hmn891 CO2 27.0 mEq/L 05/15/2016 Comp Metabolic Jcs744 ANION GAP 16 05/15/2016 Comp Metabolic Ajd482 GLUCOSE 183 mg/dL 05/15/2016 Comp Metabolic Xki490 Creat 1.1 mg/dL 05/15/2016 Comp Metabolic Lbi131 eGFR 71 ml/min/1.73m2 05/15/2016 Comp Metabolic Rck593 BUN 17 mg/dL 05/15/2016 Comp Metabolic Pvi504 B/C Ratio 14.9 Ratio 05/15/2016 Comp Metabolic Jfz300 CALCIUM 9.6 mg/dL 05/15/2016 Comp Metabolic Sun231 ALK PHOS 100 U/L 05/15/2016 Comp Metabolic Lrr724 AST(SGOT) 20 U/L 05/15/2016 Comp Metabolic Cnl143 ALT(SGPT) 20 U/L 05/15/2016 Comp Metabolic Khw261 BILI T 1.3 mg/dL 05/15/2016 Comp Metabolic Qyx501 ALBUMIN 4.6 g/dL 05/15/2016 Comp Metabolic Usj051 TPRO 8.1 g/dL 05/15/2016 Comp Metabolic Xxa876 GLOB 3.5 g/dL 05/15/2016 Comp Metabolic Cwk736 A/G Ratio 1.3 Ratio 05/15/2016 Comp Metabolic Eyg778 Osmo 276 mOsmo 05/15/2016 Review of Systems [...] of skin Location: face 05/04/2017 patch left hinduism Full Exam - General 1994 Constitutional general [...] Codes Date URINALYSIS NONAUTO W/O SCOPE CPT-4: 31856 02/17/2019 KETOROLAC TROMETHAMINE INJ CPT-4: J1885 10/21/2018 TRIAMCINOLONE ACET INJ NOS CPT-4: J3301 09/30/2018 THER/PROPH/DIAG INJ SC/IM CPT-4: 13934 09/11/2018 TRIAMCINOLONE ACET INJ NOS CPT-4: J3301 09/11/2018 IMMUNIZATION ADMIN CPT- 4: 07063 07/22/2018 FLU VAC NO PRSV 4 MENA 3 YRS+ CPT-4: 72537 07/22/2018 TRIAMCINOLONE ACET INJ NOS CPT-4: J3301 06/28/2018 KETOROLAC TROMETHAMINE INJ CPT-4: J1885 05/02/2018 FLU VAC NO PRSV 4 MENA 3 YRS+ CPT-4: 83324 08/16/2017 IMMUNIZATION ADMIN CPT- 4: 60804 08/16/2017 URINALYSIS NONAUTO W/O SCOPE CPT-4: 10147 06/21/2017 TRIAMCINOLONE ACET INJ NOS CPT-4: J3301 05/04/2017 THER/PROPH/DIAG INJ SC/IM CPT-4: 12266 05/04/2017 TRIAMCINOLONE ACET INJ NOS CPT-4: J3301 02/16/2017 ROCEPHIN, PER 250 MG CPT- 4: J0696 02/16/2017 ROCEPHIN, PER 250 MG CPT- 4: J0696 10/06/2016 URINALYSIS NONAUTO W/O SCOPE CPT-4: 84465 07/18/2016 TRIAMCINOLONE ACET INJ NOS CPT-4: J3301 01/20/2016 Vital Signs Date Vital 04/14/2019 Blood Pressure 1: 104/66 Code: 8480-6 BMI: 32.1 Code: 55385-8 Heart Rate 1: 93 bpm Height: 6'2" SpO2: 93% Weight: 250 lbs 04/08/2019 Blood Pressure 1: 92/60 Code: 8480-6 BMI: 33.0 Code: 22159- 5 Heart Rate 1: 114 bpm Height: 6'2" SpO2: 98% Weight: 257 lbs 04/03/2019 Blood Pressure 1: 126/70 Code: 8480-6 BMI: 33.0 Code: 28318-7 Heart Rate 1: 100 bpm Height: 6'2" SpO2: 97% Weight: 257 lbs 03/07/2019 Blood Pressure 1: 110/70 Code: 8480-6 BMI: 33.0 Code: 05102-9 Heart Rate 1: 112 bpm Height: 6'2" SpO2: 95% Weight: 257 lbs 02/27/2019 Blood Pressure 1: 110/80 Code: 8480-6 BMI: 33.0 Code: 30701-6 Heart Rate 1: 89 bpm Height: 6'2" SpO2: 95% Weight: 257 lbs 02/17/2019 Blood Pressure 1: 120/80 Code: 8480-6 Blood Pressure 2: 10280 Code: 8480-6 Heart Rate 1: 89 bpm SpO2: 96% 01/13/2019 Blood Pressure 1: 120/70 Code: 8480-6 BMI: 34.2 Code: 65442-8 Heart Rate 1: 74 bpm Height: 6'2" SpO2: 96% Weight: 266 lbs 12/31/2018 Blood Pressure 1: 122/70 Code: 8480-6 BMI: 34.4 Code: 94139-3 Heart Rate 1: 90 bpm Height: 6'2" SpO2: 97% Temperature: 36.6 (C) / 97.8 (F) Weight: 268 lbs 12/26/2018 Blood Pressure 1: 118/72 Code: 8480-6 BMI: 34.4 Code: 14232-2 Heart Rate 1: 82 bpm Height: 6'2" SpO2: 98% Temperature: 36.6 (C) / 97.9 (F) Weight: 268 lbs 11/18/2018 Blood Pressure 1: 120/84 Code: 8480-6 BMI: 33.9 Code: 93250-8 Heart Rate 1: 77 bpm Height: 6'2" SpO2: 99% Temperature: 36.7 (C) / 98.1 (F) Weight: 264 lbs 11/12/2018 Blood Pressure 1: 138/76 Code: 8480-6 BMI: 33.9 Code: 43726-1 Heart Rate 1: 91 bpm Height: 6'2" SpO2: 99% Weight: 264 lbs 10/30/2018 Blood Pressure 1: 130/72 Code: 8480-6 BMI: 33.3 Code: 05277-4 Heart Rate 1: 83 bpm Height: 6'2" SpO2: 95% Temperature: 36.5 (C) / 97.7 (F) Weight: 259 lbs 10/24/2018 Blood Pressure 1: 130/70 Code: 8480-6 Heart Rate 1: 95 bpm Height: 6'2" SpO2: 96% 10/23/2018 Blood Pressure 1: 100/70 Code: 8480-6 Blood Pressure 2: 102/70 Code: 8480-6 BMI: 33.3 Code: 24304-8 Heart Rate 1: 106 bpm Height: 6'2" SpO2: 98% Weight: 259 lbs 10/21/2018 Blood Pressure 1: 140/90 Code: 8480-6 BMI: 32.9 Code: 66844-9 Heart Rate 1: 96 bpm Height: 6'2" SpO2: 92% Weight: 256 lbs 10/17/2018 Blood Pressure 1: 110/68 Code: 8480-6 BMI: 32.9 Code: 19621-4 Heart Rate 1: 82 bpm Height: 6'2" SpO2: 97% Weight: 256 lbs 10/14/2018 Blood Pressure 1: 124/70 Code: 8480-6 BMI: 33.6 Code: 32756-3 Heart Rate 1: 76 bpm Height: 6'2" SpO2: 99% Temperature: 36.3 (C) / 97.3 (F) Weight: 262 lbs 09/30/2018 Blood Pressure 1: 138/82 Code: 8480-6 BMI: 33.6 Code: 63277-0 Heart Rate 1: 82 bpm Height: 6'2" SpO2: 98% Temperature: 36.3 (C) / 97.3 (F) Weight: 262 lbs 09/09/2018 Blood Pressure 1: 140/80 Code: 8480-6 BMI: 33.0 Code: 33738-5 Heart Rate 1: 97 bpm Height: 6'2" SpO2: 93% Temperature: 36.8 (C) / 98.2 (F) Weight: 257 lbs 07/22/2018 Blood Pressure 1: 120/78 Code: 8480-6 BMI: 31.6 Code: 93605-3 Heart Rate 1: 87 bpm Height: 6'2" SpO2: 98% Weight: 246 lbs 07/16/2018 Blood Pressure 1: 132/74 Code: 8480-6 BMI: 31.2 Code: 72372-2 Heart Rate 1: 90 bpm Height: 6'2" SpO2: 96% Weight: 243 lbs 07/01/2018 Blood Pressure 1: 142/82 Code: 8480-6 BMI: 31.8 Code: 37273-8 Heart Rate 1: 88 bpm Height: 6'2" SpO2: 98% Weight: 248 lbs 06/28/2018 Blood Pressure 1: 132/76 Code: 8480-6 BMI: 31.8 Code: 41204-7 Heart Rate 1: 107 bpm Height: 6'2" SpO2: 98% Temperature: 37.9 (C) / 100.3 (F) Weight: 248 lbs 06/18/2018 Blood Pressure 1: 138/82 Code: 8480-6 BMI: 31.8 Code: 83562-7 Heart Rate 1: 82 bpm Height: 6'2" SpO2: 97% Weight: 248 lbs 06/04/2018 Blood Pressure 1: 128/84 Code: 8480-6 BMI: 33.9 Code: 11217-3 Heart Rate 1: 86 bpm Height: 6'2" SpO2: 95% Weight: 264 lbs 05/13/2018 Blood Pressure 1: 130/80 Code: 8480-6 BMI: 31.1 Code: 07049-2 Heart Rate 1: 100 bpm Height: 6'2" SpO2: 94% Weight: 242 lbs 05/02/2018 Blood Pressure 1: 134/84 Code: 8480-6 BMI: 31.2 Code: 15757-7 Heart Rate 1: 93 bpm Height: 6'2" SpO2: 98% Weight: 243 lbs 04/29/2018 Blood Pressure 1: 142/88 Code: 8480-6 BMI: 31.6 Code: 79682-4 Heart Rate 1: 96 bpm Height: 6'2" SpO2: 96% Temperature: 36.7 (C) / 98.1 (F) Weight: 246 lbs 03/13/2018 Blood Pressure 1: 120/76 Code: 8480-6 BMI: 30.9 Code: 30681-5 Heart Rate 1: 112 bpm Height: 6'2" SpO2: 97% Weight: 241 lbs 03/07/2018 Blood Pressure 1: 108/78 Code: 8480-6 BMI: 30.0 Code: 46269-2 Heart Rate 1: 87 bpm Height: 6'2" SpO2: 98% Weight: 234 lbs 02/28/2018 Blood Pressure 1: 106/74 Code: 8480-6 BMI: 30.0 Code: 30239-3 Heart Rate 1: 101 bpm Height: 6'2" SpO2: 98% Temperature: 36.4 (C) / 97.5 (F) Weight: 234 lbs 02/13/2018 Blood Pressure 1: 110/78 Code: 8480-6 BMI: 30.0 Code: 82091-7 Heart Rate 1: 106 bpm Height: 6'2" SpO2: 98% Weight: 234 lbs 01/29/2018 Blood Pressure 1: 106/68 Code: 8480-6 BMI: 30.0 Code: 48204-9 Heart Rate 1: 108 bpm Height: 6'2" SpO2: 98% Weight: 234 lbs 08/27/2017 Blood Pressure 1: 134/76 Code: 8480-6 Heart Rate 1: 98 bpm Height: SpO2: 97% Weight: 08/16/2017 Blood Pressure 1: 128/80 Code: 8480-6 BMI: 32.0 Code: 45432-8 Heart Rate 1: 94 bpm Height: 6'2" [...] 1: 142/92 Code: 8480-6 BMI: 31.8 Code: 82413-0 Heart Rate 1: 102 bpm Height: 6'2" [...] 1: 122/72 Code: 8480-6 BMI: 31.8 Code: 66926-4 Heart Rate 1: 85 bpm Height: 6'2" SpO2: 96% Temperature: 36.6 (C) / 97.9 (F) Weight: 248 lbs 02/12/2017 Blood Pressure 1: 126/76 Code: 8480-6 BMI: 31.8 Code: 15238-4 Heart Rate 1: 106 bpm Height: 6'2" SpO2: 91% Weight: 248 lbs 02/05/2017 Blood Pressure 1: 146/86 Code: 8480-6 BMI: 31.9 Code: 13974-3 Heart Rate 1: 98 bpm Height: 6'2" SpO2: 87% Temperature: 36.7 (C) / 98.0 (F) Weight: 248 lbs 8 oz 01/29/2017 Blood Pressure 1: 132/84 Code: 8480-6 BMI: 31.8 Code: 01478-8 Heart Rate 1: 83 bpm Height: 6'2" SpO2: 97% Weight: 248 lbs 10/13/2016 Blood Pressure 1: 128/72 Code: 8480-6 Heart Rate 1: 86 bpm SpO2: 94% 10/09/2016 Blood Pressure 1: 128/68 Code: 8480-6 Heart Rate 1: 136 bpm SpO2: 94% Temperature: 36.8 (C) / 98.2 (F) 10/06/2016 Blood Pressure 1: 140/80 Code: 8480-6 BMI: 32.1 Code: 92980-9 Heart Rate 1: 94 bpm Height: 6'2" SpO2: 95% Weight: 250 lbs 07/18/2016 Blood Pressure 1: 128/86 Code: 8480-6 BMI: 32.1 Code: 99716-3 Heart Rate 1: 89 bpm Height: 6'2" SpO2: 96% Weight: 250 lbs 06/22/2016 Blood Pressure 1: 118/70 Code: 8480-6 BMI: 32.1 Code: 77140-0 Heart Rate 1: 70 bpm Height: 6'2" SpO2: 97% Weight: 250 lbs 05/23/2016 Blood Pressure 1: 128/80 Code: 8480-6 BMI: 32.1 Code: 45663-1 Heart Rate 1: 76 bpm Height: 6'2" SpO2: 98% Weight: 250 lbs 05/15/2016 Blood Pressure 1: 110/90 Code: 8480-6 BMI: 31.3 Code: 81062-5 Heart Rate 1: 111 bpm Height: 6'2" SpO2: 97% Temperature: 36.6 (C) / 97.8 (F) Weight: 244 lbs 01/20/2016 Blood Pressure 1: 128/76 Code: 8480-6 BMI: 33.0 Code: 40506-3 Heart Rate 1: 103 bpm Height: 6'2" [...] 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 PATIENT, LEVEL III Diagnosis: Hypotension due to drugs[ICD10: I95.2] Melida Ha MD, [facility] CPT-4: 30822 04/14/2019 73265 EST. PATIENT, LEVEL IV Diagnosis: Other fatigue[ICD10: R53.83] Diagnosis: Other malaise[ICD10: R53.81] Diagnosis: Anorexia[ICD10: R63.0] Diagnosis: Palpitations[ICD10: R00.2] Diagnosis: Weakness[ICD10: R53.1] Diagnosis: Dizziness and giddiness[ICD10: R42] Madeline Ha MD, [facility] CPT- 4: 46903 04/08/2019 ([id number]) 74723 EST. PATIENT, LEVEL III Diagnosis: Pain in left finger(s)[ICD10: M79.645] Diagnosis: Pain in left hand[ICD10: M79.642] Diagnosis: Contusion of left hand, initial encounter[ICD10: S60.222A] Diagnosis: Nasal congestion[ICD10: R09.81] Diagnosis: Headache[ICD10: R51] Melida Ha MD, [facility] CPT-4: 22743 04/03/2019 ([id number]) 12015 EST. PATIENT, LEVEL III Diagnosis: Essential (primary) hypertension[ICD10: I10] Marcela Ha MD, [facility] CPT-4: 21628 03/07/2019 ([id number]) 40256 EST. PATIENT, LEVEL III Diagnosis: Hypotension due to drugs[ICD10: I95.2] Marcela Ha MD, [facility] CPT-4: 29931 02/27/2019 ([id number]) 79990 EST. PATIENT, LEVEL III Diagnosis: Hypotension due to drugs[ICD10: I95.2] Diagnosis: Other fatigue[ICD10: R53.83] Marcela Ha MD, [facility] CPT-4: 45894 02/17/2019 ([id number]) 58650 EST. 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 PATIENT, LEVEL IV Diagnosis: Type 2 diabetes mellitus with hyperglycemia[ICD10: E11.65] Diagnosis: Epigastric pain[ICD10: R10.13] Diagnosis: Pain in joints of right hand[ICD10: M25.541] Diagnosis: Shortness of breath[ICD10: R06.02] Marcela Ha MD, [facility] CPT- 4: 54907 12/31/2018 88087 EST. PATIENT, LEVEL III Diagnosis: Other chest pain[ICD10: R07.89] Diagnosis: Cough[ICD10: R05] Madeline Ha MD, [facility] CPT-4: 63570 12/26/2018 ([id number]) 68981 EST. PATIENT, LEVEL III Diagnosis: Cough[ICD10: R05] Melida Ha MD, [facility] CPT-4: 65246 11/18/2018 ([id number]) 02656 EST. PATIENT, LEVEL III Diagnosis: Cough[ICD10: R05] Diagnosis: Pneumonia due to other Gram-negative bacteria[ICD10: J15.6] Marcela Ha MD, [facility] CPT-4: 46304 11/12/2018 ([id number]) 93856 EST. PATIENT, LEVEL III Diagnosis: Pneumonia due to other Gram-negative bacteria[ICD10: J15.6] Diagnosis: Cough[ICD10: R05] Melida Ha MD, [facility] CPT-4: 94285 10/30/2018 ([id number]) 80992 EST. PATIENT, LEVEL II Diagnosis: Pain in joints of right hand[ICD10: M25.541] Diagnosis: Trigger finger, right middle finger[ICD10: M65.331] Marcela Ha MD, [facility] CPT-4: 55299 10/24/2018 ([id number]) 36346 EST. PATIENT, LEVEL IV Diagnosis: Essential (primary) hypertension[ICD10: I10] Diagnosis: Type 2 diabetes mellitus with foot ulcer[ICD10: E11.621] Melida Ha MD, [facility] CPT-4: 99710 10/23/2018 ([id number]) 58074 EST. PATIENT, LEVEL III Diagnosis: Cellulitis of right finger[ICD10: L03.011] Diagnosis: Type 2 diabetes mellitus with foot ulcer[ICD10: E11.621] Diagnosis: Pain in right hand[ICD10: M79.641] Melida Ha MD, [facility] CPT- 4: 29748 10/21/2018 98208 EST. PATIENT, LEVEL III Diagnosis: Spontaneous ecchymoses[ICD10: R23.3] Diagnosis: Cellulitis of right lower limb[ICD10: L03.115] Diagnosis: Cellulitis of left lower limb[ICD10: L03.116] Madeline Ha MD, [facility] CPT-4: 91493 10/17/2018 ([id number]) 15533 EST. PATIENT, LEVEL III Diagnosis: Cough[ICD10: R05] Diagnosis: Acute bronchitis, unspecified[ICD10: J20.9] Melida Ha MD, [facility] CPT-4: 90603 10/14/2018 45227 EST. PATIENT, LEVEL III Diagnosis: Acute laryngopharyngitis[ICD10: J06.0] Diagnosis: Cough[ICD10: R05] Madeline Ha MD, [facility] CPT-4: 19806 09/30/2018 ([id number]) 78773 EST. PATIENT, LEVEL III Diagnosis: Acute recurrent maxillary sinusitis[ICD10: J01.01] Diagnosis: Cough[ICD10: R05] Diagnosis: Type 2 diabetes mellitus with hyperglycemia[ICD10: E11.65] Marcela Ha MD, [facility] CPT-4: 66152 09/09/2018 ([id number]) 98813 EST. PATIENT, LEVEL IV Diagnosis: Essential (primary) hypertension[ICD10: I10] Diagnosis: Mixed hyperlipidemia[ICD10: E78.2] Diagnosis: Bipolar disorder, current episode depressed, moderate[ICD10: F31.32] Diagnosis: Type 2 diabetes mellitus with other specified complication[ICD10: E11.69] Melida Ha MD, [facility] CPT-4: 83891 07/22/2018 ([id number]) 71112 EST. PATIENT, LEVEL III Diagnosis: Insomnia due to medical condition[ICD10: G47.01] Marcela Ha MD, [facility] CPT-4: 70338 07/16/2018 ([id number]) Miscellaneous no charge Diagnosis: Cough[ICD10: R05] Madeline Ha MD, [facility] CPT-4: 28654 07/01/2018 76529 EST. PATIENT, LEVEL III Diagnosis: Cough[ICD10: R05] Diagnosis: Acute laryngopharyngitis[ICD10: J06.0] Diagnosis: Other allergic rhinitis[ICD10: J30.89] Madeline Ha MD, [facility] CPT- 4: 30150 06/28/2018 ([id number]) 48030 EST. PATIENT, LEVEL IV Diagnosis: Type 2 diabetes mellitus with hyperglycemia[ICD10: E11.65] Diagnosis: Essential (primary) hypertension[ICD10: I10] Melida Ha MD, [facility] CPT-4: 82791 06/18/2018 ([id number]) 44645 EST. PATIENT, LEVEL IV Diagnosis: Type 2 diabetes mellitus with hyperglycemia[ICD10: E11.65] Diagnosis: Essential (primary) hypertension[ICD10: I10] Diagnosis: Localized edema[ICD10: R60.0] Melida Ha MD, [facility] CPT-4: 08396 06/04/2018 ([id number]) 51906 EST. PATIENT, LEVEL III Diagnosis: Type 2 diabetes mellitus with hyperglycemia[ICD10: E11.65] Diagnosis: Myalgia[ICD10: M79.1] Diagnosis: Pain in right hip[ICD10: M25.551] Diagnosis: Pain in left hip[ICD10: M25.552] Marcela Ha MD, [facility] CPT- 4: 97972 05/13/2018 ([id number]) 73866 EST. PATIENT, LEVEL III Diagnosis: Myalgia[ICD10: M79.1] Diagnosis: Pain in right hip[ICD10: M25.551] Diagnosis: Pain in left hip[ICD10: M25.552] Marcela Ha MD, [facility] CPT- 4: 92629 05/02/2018 ([id number]) 84694 EST. PATIENT, LEVEL IV Diagnosis: Essential (primary) hypertension[ICD10: I10] Diagnosis: Type 2 diabetes mellitus with hyperglycemia[ICD10: E11.65] Diagnosis: Major depressive disorder, single episode, moderate[ICD10: F32.1] Diagnosis: Myalgia[ICD10: M79.1] Marcela Ha MD, [facility] CPT-4: 33323 04/29/2018 ([id number]) 84261 EST. PATIENT, LEVEL IV Diagnosis: Type 2 diabetes mellitus with hyperglycemia[ICD10: E11.65] Diagnosis: Essential (primary) hypertension[ICD10: I10] Diagnosis: Major depressive disorder, single episode, moderate[ICD10: F32.1] Melida Ha MD, [facility] CPT-4: 07253 03/13/2018 ([id number]) 44759 EST. PATIENT, LEVEL III Diagnosis: Type 2 diabetes mellitus with hyperglycemia[ICD10: E11.65] Diagnosis: Bipolar disorder, current episode depressed, moderate[ICD10: F31.32] Diagnosis: Orthostatic hypotension[ICD10: I95.1] Marcela Ha MD, [facility] CPT-4: 91943 03/07/2018 ([id number]) 64471 EST. PATIENT, LEVEL IV Diagnosis: Type 2 diabetes mellitus with hyperglycemia[ICD10: E11.65] Diagnosis: Major depressive disorder, single episode, moderate[ICD10: F32.1] Diagnosis: Orthostatic hypotension[ICD10: I95.1] Diagnosis: Other fatigue[ICD10: R53.83] Marcela Ha MD, [facility] CPT-4: 55362 02/28/2018 03710 EST. PATIENT, LEVEL IV Diagnosis: Other fatigue[ICD10: R53.83] Diagnosis: Other malaise[ICD10: R53.81] Diagnosis: Gastro-esophageal reflux disease without esophagitis[ICD10: K21.9] Madeline Ha MD, [facility] CPT-4: 92718 02/13/2018 ([id number]) 14648 EST. PATIENT, LEVEL IV Diagnosis: Type 2 diabetes mellitus with foot ulcer[ICD10: E11.621] Diagnosis: Essential (primary) hypertension[ICD10: I10] Diagnosis: Gastro-esophageal reflux disease without esophagitis[ICD10: K21.9] Marcela Ha MD, [facility] CPT-4: 46150 01/29/2018 77842 EST. PATIENT, LEVEL III Diagnosis: Other malaise[ICD10: R53.81] Diagnosis: Other fatigue[ICD10: R53.83] Diagnosis: Pain in right shoulder[ICD10: M25.511] Diagnosis: Pain in left shoulder[ICD10: M25.512] Madeline Ha MD, [facility] CPT- 4: 78050 08/27/2017 ([id number]) 41296 EST. PATIENT, LEVEL IV Diagnosis: Essential (primary) hypertension[ICD10: I10] Diagnosis: Type 2 diabetes mellitus with hyperglycemia[ICD10: E11.65] Diagnosis: VACCIN FOR INFLUENZA[ICD10: Z23] Melida Ha MD [facility] CPT-4: 36848 08/16/2017 03607 EST. PATIENT, LEVEL III Diagnosis: [place] without complications[ICD10: B02.9] Madeline Ha MD, [facility] CPT-4: 04364 07/26/2017 ([id number]) 60622 EST. PATIENT, LEVEL III Diagnosis: Cellulitis of right lower limb[ICD10: L03.115] Marcela Ha MD [facility] CPT-4: 88790 07/03/2017 98870 EST. PATIENT, LEVEL II Diagnosis: Laceration without foreign body of left forearm, initial encounter[ICD10: S51.812A] Marcela Ha MD [facility] CPT-4: 89590 06/29/2017 ([id number]) 35887 EST. PATIENT, LEVEL III Diagnosis: Cellulitis of right lower limb[ICD10: L03.115] Diagnosis: Type 2 diabetes mellitus with foot ulcer[ICD10: E11.621] Marcela Ha MD [facility] CPT-4: 32474 06/18/2017 ([id number]) 38265 EST. PATIENT, LEVEL IV Diagnosis: Cellulitis of right lower limb[ICD10: L03.115] Diagnosis: Acute laryngopharyngitis[ICD10: J06.0] Diagnosis: Gastro-esophageal reflux disease without esophagitis[ICD10: K21.9] Marcela Ha MD, [facility] CPT-4: 27026 06/07/2017 ([id number]) 63223 EST. PATIENT, LEVEL III Diagnosis: Type 2 diabetes mellitus with hyperglycemia[ICD10: E11.65] Diagnosis: Insect bite (nonvenomous) of abdominal wall, initial encounter[ICD10: S30.861A] Macrela Ha MD, [facility] CPT-4: 19370 05/17/2017 ([id number]) 28919 EST. PATIENT, LEVEL III Diagnosis: Allergic contact dermatitis due to plants, except food[ICD10: L23.7] Melida Ha MD, [facility] CPT-4: 92587 05/04/2017 ([id number]) 65794 EST. PATIENT, LEVEL III Diagnosis: Essential (primary) hypertension[ICD10: I10] Marcela Ha MD [facility] CPT-4: 37116 03/15/2017 ([id number]) 49750 EST. PATIENT, LEVEL III Diagnosis: Cough[ICD10: R05] Diagnosis: Essential (primary) hypertension[ICD10: I10] Marcela Ha MD, [facility] CPT-4: 98466 03/01/2017 ([id number]) 79740 EST. PATIENT, LEVEL III Diagnosis: Cough[ICD10: R05] Diagnosis: Nasal congestion[ICD10: R09.81] Diagnosis: Acute recurrent maxillary sinusitis[ICD10: J01.01] Marcela Ha MD, [facility] CPT-4: 68980 02/16/2017 ([id number]) 36491 EST. PATIENT, LEVEL III Diagnosis: Type 2 diabetes mellitus with hyperglycemia[ICD10: E11.65] Marcela Ha MD, [facility] CPT-4: 33303 02/12/2017 ([id number]) 01590 EST. PATIENT, LEVEL IV Diagnosis: Type 2 diabetes mellitus with hyperglycemia[ICD10: E11.65] Diagnosis: Muscle weakness (generalized)[ICD10: M62.81] Diagnosis: Disorientation, unspecified[ICD10: R41.0] Marcela Ha MD, [facility] CPT-4: 60200 02/05/2017 ([id number]) Patient admitted to the hospital from clinic (NO CHARGE) Diagnosis: Type 2 diabetes mellitus with hyperglycemia[ICD10: E11.65] Diagnosis: Disorientation, unspecified[ICD10: R41.0] Diagnosis: Muscle weakness (generalized)[ICD10: M62.81] Marcela Ha MD, [facility] CPT-4: 58995D 01/29/2017 ([id number]) Miscellaneous no charge Diagnosis: Cellulitis of right lower limb[ICD10: L03.115] Marcela Ha MD, [facility] CPT-4: 28285 10/13/2016 ([id number]) Miscellaneous no charge Diagnosis: Type 2 diabetes mellitus with foot ulcer[ICD10: E11.621] Diagnosis: Pain in right foot[ICD10: M79.671] Marcela Ha MD [facility] CPT- 4: 23580 10/09/2016 [id number] EST. PATIENT, LEVEL II Diagnosis: Cellulitis of right lower limb[ICD10: L03.115] Marcela Ha MD, [facility] CPT-4: 53242 10/06/2016 ([id number]) 86832 EST. PATIENT, LEVEL IV Diagnosis: Low back pain[ICD10: M54.5] Diagnosis: Other deformities of toe(s) (acquired), left foot[ICD10: M20.5X2] Diagnosis: Type 2 diabetes mellitus with foot ulcer[ICD10: E11.621] Marcela Ha MD, [facility] CPT-4: 92987 07/18/2016 ([id number]) 38805 EST. PATIENT, LEVEL III Diagnosis: Type 2 diabetes mellitus with hyperglycemia[ICD10: E11.65] Marcela Ha MD, [facility] CPT-4: 63367 06/22/2016 ([id number]) 32894 EST. 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 PATIENT, LEVEL IV Diagnosis: Type 2 diabetes mellitus with other specified complication[ICD10: E11.69] Diagnosis: Dehydration[ICD10: E86.0] Marcela Ha MD, [facility] CPT-4: 70357 05/15/2016 ([id number]) OFFICE VISIT, NEW - LEVEL 3 Diagnosis: Allergic contact dermatitis due to plants, except food[ICD10: L23.7] Madeline Ha MD, [facility] CPT-4: 70755 01/20/2016 Plan of Care Planned Activity Notes [...] or concerns. 04/08/2019 Appointment: Madeline Kennedy WPtel: [address] [place], [place] [phone] (30 min) Complex 04/08/2019 Patient Education: Patient [...] sinus congestion. 04/03/2019 Appointment: Melida Ha WPtel: [address] [place], [place] [phone] (15 min) Moderate 04/03/2019 Patient Education: Patient Medication Summary Completed 04/03/2019 Care Plan: X-RAY EXAM OF HAND LOINC : 18274-9 Pending 04/03/2019 Appointment: Marcela Oshea WPtel: [phone] [place] (30 min) Complex 03/14/2019 Visit Plan: HTN -heart rate not well controlled -decrease valsartan -start metoprolol 25mg daily -return next week for blood pressure check -10 days for appt -discussed scheduling f/u appt with Dr Brennan as well -patient verbalized understanding of plan. 03/07/2019 Appointment: Marcela Oshea WPtel: [address] [place], [place] [phone] (30 min) Complex 03/07/2019 Patient Education: Patient [...] any concerns 02/27/2019 Appointment: Marcela Oshea WPtel: [address] [place], [place] [phone] (30 min) Complex 02/27/2019 Patient Education: Patient Medication Summary Completed 02/27/2019 Visit Plan: Orthostasis -decrease coreg -monitor symptoms and follow up in 10 days- sooner if needed Fatigue-check labs 02/17/2019 Appointment: Marcela Oshea WPtel: [address] [place], [place] [phone] (30 min) Complex 02/17/2019 Patient Education: Patient Medication Summary Completed 02/17/2019 Appointment: Marcela Oshea WPtel: [address] [place], [place] [phone] (30 min) Complex 01/14/2019 Visit Plan: Hypertension [...] Summary Completed 01/13/2019 Appointment: Marcela Oshea WPtel: [address] [place], [place] [phone] (30 min) Complex 01/10/2019 Visit Plan: Epigastric pain -start protonix daily- monitor symptoms Chest pain -work up negative done last week with Madeline-recommend appt with Dr Brennan Joint pain-check inflammation makers DM-check Hgb a1c 12/31/2018 Appointment: Marcela Oshea WPtel: [phone] [phone] (15 min) Moderate 12/31/2018 Patient Education: Patient Medication Summary Completed 12/31/2018 Visit Plan: chest pain - EKG and cardiac enzymes OK - discussed with Dr. Ha - will treat for pneumonia - pt is to notify clinic if symptoms do not improve, if they worsen, or with any changes questions, or concerns. 12/26/2018 Appointment: Madeline Kennedy WPtel: [phone] [facility]6676[facility] (30 min) Complex 12/26/2018 Patient Education: Patient Medication Summary Completed 12/26/2018 Referral: Andrew Cross Patient informed. Referral info faxed. Completed 11/26/2018 Visit Plan: cough - improved - continue with inhalers - continue with symbicort - rx for proair for PRN use when pt is feelign short of breath with activity. 11/18/2018 Appointment: Melida Ha WPtel: [phone] [facility]66[facility] (15 min) Moderate 11/18/2018 [...] of plan. 11/12/2018 Appointment: Marcela Oshea WPtel: [phone] (30 min) Complex 11/12/2018 Patient Education: Patient Medication Summary Completed 11/12/2018 Patient Education: Symbicort - 18-64 - eCopay Completed 11/12/2018 Care Plan: Referral Order SNOMED-CT : 006336031 Pending 11/12/2018 Referral: Niko Mantilla Referral Completed 11/04/2018 Visit Plan: Pneumonia, cough - recent diagnosis of Moraxella Cattharalis - with sensitivity to levaquin - will give 2 wks of levaquin since he had improvement but no full resolution of symptoms. 10/30/2018 Appointment: Melida Ha WPtel: [facility] 30 min appointments only in this slot 10/30/2018 Patient Education: Patient Medication Summary Completed 10/30/2018 Visit Plan: Right hand-joint pain and swelling -negative for gout -treated for cellulitis right 2nd mcp joint -now having difficulty with long finger "locking" -Dr Ha in to evaluate patient and tape index and long finger in place-refer to Dr Mantilla for evaluation 10/24/2018 Appointment: Marcela Oshea WPtel: [facility]5 [phone] (30 min) Complex 10/24/2018 Patient Education: Patient Medication Summary Completed 10/24/2018 Care Plan: Referral Order SNOMED-CT : [id number] Pending 10/24/2018 Visit Plan: Hypotension - discussed [...] less controlled. 10/23/2018 Appointment: Melida Ha WPtel: [facility] (15 min) Moderate 10/23/2018 Patient Education: Patient [...] and plan. 10/21/2018 Appointment: Marcela Oshea WPtel: [facility]6 [phone] (30 min) Complex 10/21/2018 Patient Education: Patient [...] warmth, discharge. 10/17/2018 Appointment: Madeline Kennedy WPtel: [phone] [facility] (15 min) Moderate 10/17/2018 Patient Education: [...] acutely worsen. 10/14/2018 Appointment: Marcela Oshea WPtel: [phone] [phone] [place] [address] (15 min) Moderate 10/14/2018 Patient Education: Patient Medication Summary Completed 10/14/2018 Care Plan: CHEST X-RAY 2VW FRONTAL&LATL LOINC : 31086-6 Pending 10/14/2018 Visit Plan: URI - Pt [...] allergy spray. 09/30/2018 Appointment: Madeline Kennedy WPtel: [phone] [facility] (15 min) Moderate 09/30/2018 Patient Education: [...] A1C 09/09/2018 Appointment: Marcela Oshea WPtel: [phone] [phone] (15 min) Moderate 09/09/2018 Patient Education: Patient Medication Summary Completed 09/09/2018 Patient Education: Patient Medication Summary Completed 09/06/2018 Patient Education: Cholesterol Management Completed 09/06/2018 Care Plan: Comp Metabolic Pending 09/06/2018 Care Plan: Cbc With Differential Pending 09/06/2018 Care Plan: %Hba1C LOINC : 81747-3 Pending 09/06/2018 Care Plan: Tsh Pending 09/06/2018 Care Plan: Lipid Pending 09/06/2018 Appointment: Marcela Oshea WPtel: [facility]3 [phone] (15 min) Moderate 08/26/2018 Appointment: Marcela Oshea WPtel: [phone] [phone] (15 min) Moderate 08/23/2018 Visit Plan: [...] clinic. 07/22/2018 Appointment: Melida Ha [facility]Ptel: [phone] (15 min) Moderate 07/22/2018 Patient Education: Patient [...] insomnia. 07/16/2018 Appointment: Marcela Oshea WPtel: [phone] [phone] [place] (30 min) Complex 07/16/2018 Patient Education: Patient Medication Summary Completed 07/16/2018 Visit Plan: cough - improved - notify clinic if symptoms do not completely resolve, or with any questions or concerns. 07/01/2018 Appointment: Madeline Kennedy WPtel: [phone] [facility] [place] (15 min) Moderate 07/01/2018 Patient [...] spray. 06/28/2018 Appointment: Madeline Kennedy WPtel: [phone] [facility] (15 min) Moderate 06/28/2018 Patient Education: [...] home. 06/18/2018 Appointment: Melida Ha WPtel: [phone] [facility] (15 min) Moderate 06/18/2018 Patient Education: Patient [...] swelling improves. 06/04/2018 Appointment: Melida Ha WPtel: [phone] [facility] (15 min) Moderate 06/04/2018 Patient Education: Patient [...] allow for greater blood glucose control. Joint aqtg-somlokrx-cqdevvl-symptoms have improved -stop meloxicam due to upset stomach-call if symptoms return 05/13/2018 Appointment: Marcela Oshea WPtel: [phone] (30 min) Complex 05/13/2018 Patient Education: Patient Medication Summary Completed 05/13/2018 Visit Plan: Bilateral hip xrgj-jpvlfich-mrcmoqw IM injection administered today for c/o continued myalgia/arthralgia. Patient to start taking Meloxicam 15mg PO daily. Advised to return to clinic if symptoms do not improve. 05/02/2018 Appointment: Marcela Oshea WPtel: [phone] [phone] (30 min) Complex 05/02/2018 Patient Education: [...] readings at home. Diabetes Mellitus -check labs Uxnfumwr-dirijjk-ptuh bite-rx for doxycycline-follow up in 2 weeks 04/29/2018 Appointment: Marcela Oshea WPtel: [phone] [phone] (15 min) Moderate 04/29/2018 Patient Education: Patient Medication Summary Completed 04/29/2018 Appointment: Melida Ha WPtel: 101 [facility] [place] (15 min) Moderate 04/15/2018 Appointment: Marcela Oshea WPtel: [phone] [place] [phone] (30 min) Complex 03/21/2018 Visit Plan: Hypertension [...] cymbalta 03/13/2018 Appointment: Melida Ha WPtel: [phone] [facility] [place] (30 min) Complex 03/13/2018 Patient Education: Patient Medication Summary Completed 03/13/2018 Visit Plan: DM-continue same medications-monitor blood sugars routinely as directed -rx for new glucometer and test strips provided Bipolar- currently depressed-patient start on vraylar-follow up in 2 weeks, sooner if needed. Patient and verbalied understanding of plan. Hypotension-stay off losartan 03/07/2018 Appointment: Marcela Oshea WPtel: [facility]5 [phone] (30 min) Complex 03/07/2018 Patient Education: Patient Medication Summary Completed 03/07/2018 Appointment: Melida Ha WPtel: [phone] [facility] (15 min) Moderate 03/04/2018 Visit [...] this patient. 02/28/2018 Appointment: Marcela Oshea WPtel: [facility]5 [phone] (30 min) Complex 02/28/2018 Patient Education: [...] not improving. 02/13/2018 Appointment: Madeline Kennedy WPtel: [phone] (15 min) Moderate 02/13/2018 Patient Education: Patient Medication Summary Completed 02/13/2018 Referral: Sun Glynn Patient informed. Referral info faxed. Completed 02/01/2018 Visit Plan: DM-weight loss-not checking blood sugars-patient sent for labs today HTN-low quztp-zmkhukp-uqocd labs Callus of foot and fissue of heel-refer to Dr Glynn for evaluation Esophageal Reflux - the patient has been counseled against excessive intake of caffeine, spicy foods, peppermint, and cinnamon - all of which can exacerbate esophageal reflux. The patient is to take medications as prescribed and call the office if the symptoms are not improving. 01/29/2018 Appointment: Marcela Oshea WPtel: [phone] [phone] (30 min) Complex 01/29/2018 Patient Education: Patient Medication Summary Completed 01/29/2018 Care Plan: Comp Metabolic Cancelled 01/29/2018 Care Plan: Cbc With Differential Cancelled 01/29/2018 Care Plan: %Hba1C LOINC : 63678-5 Cancelled 01/29/2018 Care Plan: Referral Order SNOMED-CT : [id number] Cancelled 01/29/2018 Visit Plan: Fatigue, malaise, joint [...] concerns. 08/27/2017 Appointment: Madeline Kennedy WPtel: [phone] [place] (15 min) Moderate 08/27/2017 Patient Education: [...] today - 08/16/2017 Appointment: Melida Ha WPtel: [facility]7 [facility] (30 min) Complex 08/16/2017 Patient Education: Patient Medication Summary Completed 08/16/2017 Patient Education: Obesity Completed 08/16/2017 Appointment: Madeline Kennedy WPtel: [facility]0 [facility] (30 min) Complex 08/07/2017 Visit Plan: [...] contagious. 07/26/2017 Appointment: Madeline Kennedy WPtel: [phone] [facility] (15 min) Moderate 07/26/2017 Patient Education: Patient Medication Summary Completed 07/26/2017 Visit Plan: Cellulitis right foot-cultured today in the office- home health to reapply wound vac--appt with wound care on to evaluate for debridement- 07/03/2017 Appointment: Marcela Oshea WPtel: [phone] [phone] (30 min) Complex 07/03/2017 Patient Education: Patient Medication Summary Completed 07/03/2017 Visit Plan: Abrasion left arm - Pt was instructed to keep the wound clean, wash with antibacterial soap, use triple antibiotic ointment, call if redness, pustular drainage, or any other acute concerns. 06/29/2017 Appointment: Marcela Oshea WPtel: [facility]2 [phone] (15 min) Moderate 06/29/2017 Patient [...] of plan. 06/18/2017 Appointment: Marcela Oshea WPtel: [facility]8 [phone] (15 min) Moderate 06/18/2017 Patient [...] diet-start prilosec 06/07/2017 Appointment: Marcela Oshea WPtel: [phone] [place] (10 min) Simple 06/07/2017 Patient Education: [...] bite-continue doxycycline 05/17/2017 Appointment: Marcela Oshea WPtel: [address] [place], [place] [phone] (30 min) Complex 05/17/2017 Patient Education: Patient [...] [facility] 05/04/2017 Appointment: Marcela Oshea WPtel: [facility]0 [phone] (30 min) Complex 05/04/2017 Patient Education: [...] Marcela Oshea WPtel: [facility]9 [phone] (15 min) Moderate 03/15/2017 Patient Education: Patient Medication Summary Completed 03/15/2017 Appointment: Marcela Oshea WPtel: [facility]7 [phone] (30 min) Complex 03/12/2017 Visit Plan: [...] discussed 02/16/2017 Appointment: Marcela Oshea WPtel: [phone] [phone] (15 min) Moderate 02/16/2017 Patient Education: [...] controlled. 02/12/2017 Appointment: Marcela Oshea WPtel: [address] (30 min) Complex 02/12/2017 Patient Education: Patient Medication Summary Completed 02/12/2017 Appointment: Marcela Oshea WPtel: [address] (30 min) Complex 02/06/2017 Visit Plan: [...] readings are starting to become less controlled. Aidmcksfp-wgrdreos-juhyrqsj to monitor Generalized weakness-refer for PT-patient refuses today but will consider 02/05/2017 Appointment: Marcela Oshea WPtel: [phone] [phone] [place] (30 min) Complex 02/05/2017 Patient Education: Patient Medication Summary Completed 02/05/2017 Appointment: Marcela Oshea WPtel: [address] [place], [place] [phone] (30 min) Complex 01/30/2017 Visit Plan: Acute confusion-uncontrolled diabetes-chronically noncompliant with treatment and stopped his insulin several months ago-r/o stroke vs DKA-Dr Ha in to evaluate patient-plan to admit for further work up and treatment-patient's called and she transported him to the hospital 01/29/2017 Appointment: Marcela Oshea WPtel: [facility]5 [phone] [place] (30 min) Complex 01/29/2017 Patient Education: Patient Medication Summary Completed 01/29/2017 Patient Education: Obesity Completed 01/29/2017 Visit Plan: Right foot pain-MRI shows foreign body-appt with Dr Grewal for evaluation on Sunday. 10/13/2016 Appointment: Marcela Oshea WPtel: [facility]5 [phone] [place] (15 min) Moderate 10/13/2016 Patient Education: Patient Medication Summary Completed 10/13/2016 Appointment: Marcela Oshea WPtel: [facility]5 [phone] (30 min) Complex 10/12/2016 Visit Plan: Right foot nicn-rfvhsijp-ygkhm washer dropped on foot-xray negative but pain continues to increase-recommend MRI of foot for further evaluation-refer to wound care for lesions on right foot, patient has diabetes and history of osteomyelitis-culture obtained today-continue oral abx- follow up in the office on , sooner if needed 10/09/2016 Visit Plan: Right foot rdzs-jepogoiz-owvdw washer dropped on foot-xray negative but pain continues to increase-recommend MRI of foot for further evaluation-refer to wound care for lesions on right foot, patient has diabetes and history of osteomyelitis-culture obtained today-continue oral abx- follow up in the office on , sooner if needed 10/09/2016 Visit Plan: Right foot nsru-rdevjkte-uvgax washer dropped on foot-xray negative but pain continues to increase-recommend MRI of foot for further evaluation-refer to wound care for lesions on right foot, patient has diabetes and history of osteomyelitis-culture obtained today-continue oral abx- follow up in the office on , sooner if needed 10/09/2016 Appointment: Marcela Oshea WPtel: [address] [place], [place] [phone] (30 min) Complex 10/09/2016 Patient Education: Patient Medication Summary Completed 10/09/2016 Visit Plan: Cellulitis - continue with oral antibiotics as previously directed, return to clinic as previously directed, call for acute change in symptoms, worsening redness, warmth, discharge. 10/06/2016 Appointment: Marcela Oshea WPtel: [address] [place], [place] [phone] (10 min) Simple 10/06/2016 Patient Education: Patient Medication Summary Completed 10/06/2016 Appointment: Marcela Oshea WPtel: [address] [place], [place] [phone] (30 min) Complex 08/24/2016 Referral: Sun Glynn Referral Completed 07/21/2016 Visit Plan: Low back pain- history of spinal fusion-patient for xray lumbar spine-RX sent to [facility] pharmacy and instructed on use- topical voltaren samples provided and instructed on use. Ok to use tylenol as n eeded as well. The patient is to call the office if the pain is worsening or does not improve. Pressure ulcer left 4th toe-refer to Dr Glynn for evaluation 07/18/2016 Appointment: Marcela Oshea WPtel: [address] [place], [place] [phone] (30 min) Complex 07/18/2016 Patient Education: Patient Medication Summary Completed 07/18/2016 Patient Education: Obesity Completed 07/18/2016 Care Plan: Referral Order SNOMED-CT : [id number] Cancelled 07/18/2016 Visit Plan: Diabetes Mellitus - [...] control. 06/22/2016 Appointment: Marcela Oshea WPtel: [phone] (30 min) Complex 06/22/2016 Patient Education: Patient [...] today 05/23/2016 Appointment: Marcela Oshea WPtel: [phone] (30 min) Complex 05/23/2016 Patient Education: Patient [...] of plan. 05/15/2016 Appointment: Marcela Oshea WPtel: [phone] (15 min) Moderate 05/15/2016 Patient Education: Patient [...] blue minesh called into [facility]. xray lumbar spine flexeril as needed voltaren gel ulcer left 4th toe-refer to backpackers manager . Low back pain- history of spinal fusion-patient for xray lumbar spine-RX sent to [facility] pharmacy and instructed on use-topical [...] wants you to follow up with your head librarian. Fatigue, malaise, no appetitie, dizziness, palpitations, near [...] for fracture from injury . Right foot ldlk-rhggcmco-enasn washer dropped on foot-xray negative but pain [...] for fracture from injury . Right foot dyud-khbwoxyk-spzke washer dropped on foot-xray negative but pain [...] for fracture from injury . Right foot wkbe-vbrqtwse-xzlsa washer dropped on foot-xray negative but pain [...] if needed Fatigue-check labs . Bilateral hip etei-zoozccrv-ljsbxiw IM injection administered today for c/o continued myalgia/arthralgia. Patient to start taking Meloxicam 15mg PO daily. Advised to return to clinic if symptoms do not improve. . DM-weight loss-not checking blood sugars-patient sent for labs today HTN-low oesfg-cbmtoks-mrgzl labs Callus of foot and fissue of [...] readings are starting to become less controlled. Wqehacbyo-dnpnipwe-ehlnekob to monitor Generalized weakness-refer for PT-patient refuses [...] PILL DAILY FOLLOW UP APPOINTMENT WITH YOUR ORIENTAL MEDICINE PRACTITIONER. HTN -heart rate not well controlled -decrease [...] allow for greater blood glucose control. Joint dlca-gckgfhhz-pirxpbz-symptoms have improved -stop meloxicam due to upset [...] readings at home. Diabetes Mellitus -check labs Hzdltgua-wqpyoik-guwz bite-rx for doxycycline-follow up in 2 weeks [...]
[2019-04-24 14:45] LABS: ALBUMIN 4.2 GM/DL (3.2-4.5); BILIRUBIN,TOTAL 1.9 MG/DL (0.1-1.0); CALCIUM 10.3 MG/DL (8.5-10.1); CREATININE SERUM 1.5 MG/DL (0.60-1.30); POTASSIUM 4.8 MMOL/L (3.6-5.0); TOTAL PROTEIN 7.6 GM/DL (6.4-8.2)
[2019-04-24] MEDS: NS IV 1000 ML 1,000 ML IV SCH (14:45)
[2019-04-24] MEDS ORDERED: NITROGLYCERIN 0.4 MG SL TABS BTL 25'S SL PRN (14:45)
[2019-04-24] MEDS ORDERED: CATHETER FLUSH 10 ML SYR IV PRN ×2 (14:45→18:45)
--- OUTSIDE RECORDS SUMMARY | 2019-04-24 14:48 | XMS REPORT | CCD ---
Author Author Madeline Kennedy MD, [facility] Address [address] [place] [address] Phone Care Team Providers Care Biometrician Name Role Phone PP Unavailable CCM Unavailable Summary Purpose Interface Exchange Insurance Providers Payer name Policy type / Coverage type Covered democrat ID Effective Begin Date Effective End Date [employer] Commercial Insurance [id number] 2018 Unknown Family history Father Diagnosis Age At Onset Hyperlipidemia Unknown Heart Attack Unknown Mother Diagnosis Age At Onset Hypertension Unknown Social History Social History Element Codes Description Effective Dates Marital status Unknown [place]ignon 01/20/2016 Number of children Unknown 4 01/20/2016 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/[address]: 260944982 Never smoker 01/20/[address]: 001819341 Never drinks alcohol 01/20/2016 Allergies, Adverse Reactions, Alerts Substance Reaction Codes Entered Date Inactivated Date Status * NO KNOWN DRUG ALLERGIES Unknown 05/23/2016 No Inactive Date Active Past Medical History Illness Codes Condition Status Onset Date Resolved Date Anorexia ICD-9: 783.0 ICD-10: R63.0 Active 04/08/2019 [...] Active 02/17/2019 Unknown 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 [...] Problems Condition Codes Effective Dates Condition Status Anorexia ICD-9: 783.0 ICD-10: R63.0 04/08/2019 Active [...] I95.2 02/17/2019 Active 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 [...] Fill Instructions Topamax 25 mg tablet RxNorm: 265878 1 Tablet(s) PO BID 03/11/2019 04/09/2019 Inactive Topamax 25 mg tablet RxNorm: 066888 1 Tablet(s) PO BID 03/11/2019 03/10/2019 Inactive valsartan 40 mg tablet RxNorm: 406203 1/2 Tablet(s) PO daily 03/07/2019 09/02/2019 Active metoprolol succinate ER 25 mg tablet,extended release 24 hr RxNorm: 043945 1 Tablet(s) PO QPM 03/07/2019 03/09/2019 Inactive Cymbalta 30 mg capsule,delayed release RxNorm: 803810 1 Capsule(s) PO daily 02/27/2019 No Stop Date Active Lyrica 50 mg capsule RxNorm: 677686 Capsule(s) PO daily 02/26/2019 06/25/2019 Active Cymbalta 60 mg capsule,delayed release RxNorm: 017058 1 Capsule(s) PO QAM 02/19/2019 02/26/2019 Inactive will call for refill- dose change Coreg 6.25 mg tablet RxNorm: 022433 1 Tablet(s) daily 02/19/2019 02/26/2019 Inactive clonazepam 1 mg tablet RxNorm: 950734 2 Tablet(s) PO HS 02/18/2019 06/14/2019 Active Tresiba FlexTouch U-200 insulin 200 unit/mL (3 mL) subcutaneous pen RxNorm: 2912998 50 Unit(s) SQ daily 01/08/2019 05/07/2019 Active please give him 30 day supply Protonix 40 mg tablet,delayed release RxNorm: 059646 1 Tablet(s) PO daily 12/31/2018 01/29/2019 Inactive Tresiba FlexTouch U-200 insulin 200 unit/mL (3 mL) subcutaneous pen RxNorm: 7957816 50 Unit(s) SQ daily 12/31/2018 01/07/2019 Inactive please give him 30 day supply Augmentin 500 mg-125 mg tablet RxNorm: 760083 1 Tablet(s) PO TID 12/26/2018 01/04/2019 Inactive Augmentin 500 mg-125 mg tablet RxNorm: 259516 1 Tablet(s) PO TID 12/26/2018 12/25/2018 Inactive ProAir HFA 90 mcg/actuation aerosol inhaler RxNorm: 8568546 2 Puff(s) INH QID as needed 11/18/2018 No Stop Date Active Lyrica 50 mg capsule RxNorm: 916966 Capsule(s) PO daily 11/13/2018 02/07/2019 Inactive Cymbalta 30 mg capsule,delayed release RxNorm: 855925 1 Capsule(s) PO QAM 11/13/2018 02/18/2019 Inactive Lyrica 50 mg capsule RxNorm: 089202 Capsule(s) PO daily 11/13/2018 11/12/2018 Inactive Symbicort 160 mcg-4.5 mcg/actuation HFA aerosol inhaler RxNorm: 8079692 2 Puff(s) INH BID 11/12/2018 12/11/2018 Inactive albuterol sulfate 2.5 mg/3 mL (0.083 %) solution for nebulization RxNorm: 333300 3 Milliliter(s) INH UD 11/07/2018 No Stop Date Active azithromycin 500 mg tablet RxNorm: 789900 500mg on day 1 then 250 mg daily x 4 more day Tablet(s) PO 11/07/2018 11/06/2018 Inactive 500mg on day 1 and then 250mg daily 2-4 cefdinir 300 mg capsule RxNorm: 951409 1 Capsule(s) PO BID 11/07/2018 11/06/2018 Inactive azithromycin 500 mg tablet RxNorm: 271704 500mg on day 1 then 250 mg daily x 4 more day Tablet(s) PO 11/07/2018 01/07/2019 Inactive 500mg on day 1 and then 250mg daily 2-4 cefdinir 300 mg capsule RxNorm: 149212 1 Capsule(s) PO BID 11/07/2018 11/13/2018 Inactive Levaquin 500 mg tablet RxNorm: 464297 1 Tablet(s) PO daily TAKE ONE TABLET BY MOUTH DAILY UNTIL GONE 10/31/2018 11/13/2018 Inactive Levaquin 500 mg tablet RxNorm: 563049 1 Tablet(s) PO daily 10/30/2018 11/12/2018 Inactive valsartan 80 mg tablet RxNorm: 571630 1/2 Tablet(s) PO daily 10/23/2018 03/06/2019 Inactive doxycycline hyclate 100 mg tablet RxNorm: 1743697 1 Tablet(s) PO BID 10/21/2018 10/27/2018 Inactive ketorolac 60 mg/2 mL intramuscular solution RxNorm: 0926487 Milliliter(s) IM 10/21/2018 10/21/2018 Inactive Levaquin 500 mg tablet RxNorm: 740364 1 Tablet(s) PO daily 10/17/2018 10/31/2018 Inactive Tessalon Perles 100 mg capsule RxNorm: 545495 1-2 Capsule(s) PO TID PRN 10/14/2018 No Stop Date Active albuterol sulfate 2.5 mg/3 mL (0.083 %) solution for nebulization RxNorm: 427923 3 Milliliter(s) INH UD 10/14/2018 11/06/2018 Inactive Levaquin 500 mg tablet RxNorm: 559115 1 Tablet(s) PO daily 10/14/2018 10/16/2018 Inactive albuterol sulfate 2.5 mg/3 mL (0.083 %) solution for nebulization RxNorm: 283031 3 Milliliter(s) INH UD 09/30/2018 10/13/2018 Inactive Kenalog 40 mg/mL suspension for injection RxNorm: 3049493 1.5 Milliliter(s) Inj 09/30/2018 09/30/2018 Inactive Coreg 6.25 mg tablet RxNorm: 964684 TAKE ONE TABLET BY MOUTH TWICE A DAY 09/30/2018 02/18/2019 Inactive Keflex 500 mg capsule RxNorm: 757717 1 Capsule(s) PO TID 09/27/2018 10/03/2018 Inactive prednisone 20 mg tablet RxNorm: 801929 2 Tablet(s) PO daily 09/27/2018 09/29/2018 Inactive Kenalog 40 mg/mL suspension for injection RxNorm: 3432872 Milliliter(s) Inj 09/11/2018 09/11/2018 Inactive Zyrtec 10 mg tablet RxNorm: 4507781 1 Tablet(s) PO daily 09/09/2018 10/08/2018 Inactive Keflex 500 mg capsule RxNorm: 587990 1 Capsule(s) PO TID 09/09/2018 09/15/2018 Inactive Tresiba FlexTouch U-200 insulin 200 unit/mL (3 mL) subcutaneous pen RxNorm: 6127442 50 Unit(s) SQ daily 08/30/2018 08/29/2018 Inactive please give him 30 day supply Tresiba FlexTouch U-200 insulin 200 unit/mL (3 mL) subcutaneous pen RxNorm: 8916310 50 Unit(s) SQ daily 08/30/2018 09/28/2018 Inactive please give him 30 day supply Novolog Flexpen U-100 Insulin aspart 100 unit/mL subcutaneous RxNorm: 8457332 8 Unit(s) SQ AC 08/13/2018 No Stop Date Active Novolog Flexpen U-100 Insulin aspart 100 unit/mL subcutaneous RxNorm: 0007753 8 Unit(s) SQ AC 07/22/2018 2018 Inactive this is an update on his medication Novolog Flexpen U-100 Insulin aspart 100 unit/mL subcutaneous RxNorm: 7774855 12 Unit(s) SQ AC 07/05/2018 07/21/2018 Inactive this is an update on his medication Toujeo SoloStar U-300 Insulin 300 unit/mL (1.5 mL) subcutaneous pen RxNorm: 8477920 INJECT 50 UNITS UNDER THE SKIN DAILY 07/01/2018 08/29/2018 Inactive Mucinex 600 mg tablet, extended release RxNorm: 029985 1 Tablet(s) PO BID 06/28/2018 07/04/2018 Inactive Zofran 4 mg tablet RxNorm: 223968 1 Tablet(s) PO TID as needed nausea 06/28/2018 07/02/2018 Inactive Kenalog 40 mg/mL suspension for injection RxNorm: 7506004 Milliliter(s) Inj 06/28/2018 06/28/2018 Inactive Flonase Allergy Relief 50 mcg/actuation nasal spray,suspension RxNorm: 9780579 1 [place] NASAL BID 06/28/2018 07/08/2018 Inactive Lyrica 50 mg capsule RxNorm: 325004 Capsule(s) PO daily 06/24/2018 07/06/2018 Inactive Novolog Flexpen U-100 Insulin aspart 100 unit/mL subcutaneous RxNorm: 0591025 10 Unit(s) SQ AC 06/18/2018 07/04/2018 Inactive this is an update on his medication Lasix 20 mg tablet RxNorm: 024945 1 Tablet(s) PO BIW 06/12/2018 07/02/2018 Inactive atorvastatin 80 mg tablet RxNorm: 906803 1 Tablet(s) PO QHS 06/10/2018 12/06/2018 Inactive clonazepam 1 mg tablet RxNorm: 827966 2 Tablet(s) PO HS as needed 06/10/2018 06/08/2018 Inactive clonazepam 1 mg tablet RxNorm: 738659 2 Tablet(s) PO HS 06/10/2018 02/17/2019 Inactive Lyrica 50 mg capsule RxNorm: 270175 Capsule(s) PO daily 06/10/2018 07/08/2018 Inactive Lasix 20 mg tablet RxNorm: 450923 1 Tablet(s) PO TIW 06/04/2018 06/11/2018 Inactive Toujeo SoloStar U-300 Insulin 300 unit/mL (1.5 mL) subcutaneous pen RxNorm: 2187832 50 Unit(s) SQ daily 05/07/2018 06/30/2018 Inactive meloxicam 15 mg tablet RxNorm: 731793 15 Milligram(s) PO daily 05/02/2018 05/12/2018 Inactive ketorolac 30 mg/mL injection solution RxNorm: 300080 2 Milliliter(s) Inj 05/02/2018 05/02/2018 Inactive Toujeo SoloStar U-300 Insulin 300 unit/mL (1.5 mL) subcutaneous pen RxNorm: 8883591 45 Unit(s) daily 04/29/2018 05/02/2018 Inactive clonazepam 1 mg tablet RxNorm: 972474 1 Tablet(s) PO Q8 as needed 04/29/2018 06/09/2018 Inactive doxycycline hyclate 100 mg tablet RxNorm: 0419648 1 Tablet(s) PO BID 04/29/2018 05/12/2018 Inactive Cymbalta 30 mg capsule,delayed release RxNorm: 484907 1 Capsule(s) PO QAM 03/13/2018 10/08/2018 Inactive Lexapro 10 mg tablet RxNorm: 831372 1 Tablet(s) PO QPM 02/28/2018 03/03/2018 Inactive Toujeo SoloStar U-300 Insulin 300 unit/mL (1.5 mL) subcutaneous pen RxNorm: 6246752 20 Unit(s) daily 02/28/2018 03/03/2018 Inactive Protonix 40 mg tablet,delayed release RxNorm: 744726 1 Tablet(s) PO daily 01/29/2018 06/09/2018 Inactive clonazepam 1 mg tablet RxNorm: 981338 1 Tablet(s) PO Q8 as needed 12/12/2017 03/10/2018 Inactive Tamiflu 75 mg capsule RxNorm: 685294 1 Capsule(s) PO BID 11/29/2017 12/03/2017 Inactive doxycycline hyclate 100 mg capsule RxNorm: 7030733 1 Capsule(s) PO BID 09/07/2017 09/20/2017 Inactive doxycycline hyclate 100 mg capsule RxNorm: 6234125 1 Capsule(s) PO BID 08/27/2017 09/06/2017 Inactive prednisone 20 mg tablet RxNorm: 951799 2 Tablet(s) PO daily 08/27/2017 08/31/2017 Inactive clopidogrel 75 mg tablet RxNorm: 016576 1 Tablet(s) PO daily 08/24/2017 06/09/2018 Inactive atorvastatin 40 mg tablet RxNorm: 789004 1 Tablet(s) PO QHS 08/24/2017 02/27/2018 Inactive losartan 25 mg tablet RxNorm: 399245 TAKE ONE TABLET BY MOUTH DAILY 08/22/2017 06/09/2018 Inactive Toujeo SoloStar 300 unit/mL (1.5 mL) subcutaneous insulin pen RxNorm: 6765354 45 Unit(s) daily 08/17/2017 08/20/2017 Inactive mupirocin 2 % topical ointment RxNorm: 117762 1 Application TOP TID to the lesions on chest 08/16/2017 08/25/2017 Inactive Toujeo SoloStar 300 unit/mL (1.5 mL) subcutaneous insulin pen RxNorm: 6905859 40 Unit(s) daily 08/16/2017 08/16/2017 Inactive valacyclovir 1 gram tablet RxNorm: 601384 1 Tablet(s) PO TID 07/26/2017 08/01/2017 Inactive clonazepam 1 mg tablet RxNorm: 820416 1 Tablet(s) PO Q8 as needed 07/03/2017 09/30/2017 Inactive Levaquin 500 mg tablet RxNorm: 628974 1 Tablet(s) PO daily 06/22/2017 06/25/2017 Inactive Levaquin 500 mg tablet RxNorm: 035712 1 Tablet(s) PO daily 06/18/2017 06/21/2017 Inactive losartan 25 mg tablet RxNorm: 950492 1 Tablet(s) PO daily 06/18/2017 08/16/2017 Inactive nystatin 100,000 unit/mL oral suspension RxNorm: 658009 5 Milliliter(s) PO QID Swish et swallow 06/18/2017 06/17/2017 Inactive nystatin 100,000 unit/mL oral suspension RxNorm: 147742 5 Milliliter(s) PO QID Swish et swallow 06/18/2017 06/27/2017 Inactive Cipro 500 mg tablet RxNorm: 614135 1 Tablet(s) PO BID 06/12/2017 06/18/2017 Inactive Cipro 500 mg tablet RxNorm: 914091 1 Tablet(s) PO BID 06/12/2017 06/11/2017 Inactive Toujeo SoloStar 300 unit/mL (1.5 mL) subcutaneous insulin pen RxNorm: 6373586 INJECT 10 UNITS UNDER THE SKIN DAILY 06/12/2017 08/15/2017 Inactive Keflex 500 mg capsule RxNorm: 837198 1 Capsule(s) PO TID 06/07/2017 06/13/2017 Inactive doxycycline hyclate 100 mg capsule RxNorm: 5118150 1 Capsule(s) PO BID 05/17/2017 05/21/2017 Inactive doxycycline hyclate 100 mg capsule RxNorm: 5809549 1 Capsule(s) PO BID 05/11/2017 05/16/2017 Inactive losartan 25 mg tablet RxNorm: 587563 1 Tablet(s) PO daily 03/01/2017 06/17/2017 Inactive atorvastatin 40 mg tablet RxNorm: 641282 1 Tablet(s) PO daily 03/01/2017 08/23/2017 Inactive clopidogrel 75 mg tablet RxNorm: 030584 1 Tablet(s) PO daily 03/01/2017 08/23/2017 Inactive Flonase Allergy Relief 50 mcg/actuation nasal spray,suspension RxNorm: 3684084 2 [place] NASAL daily 02/16/2017 02/25/2017 Inactive Augmentin 875 mg-125 mg tablet RxNorm: 390866 1 Tablet(s) PO BID 02/16/2017 02/22/2017 Inactive GET PROBIOTIC TO TAKE WHILE ON ABX Tamiflu 75 mg capsule RxNorm: 789638 1 Capsule(s) PO BID 02/16/2017 02/20/2017 Inactive ceftriaxone 500 mg solution for injection RxNorm: 1627556 1 Milliliter(s) Inj 02/16/2017 02/16/2017 Inactive Kenalog 40 mg/mL suspension for injection RxNorm: 9431590 1 Milliliter(s) Inj 02/16/2017 02/16/2017 Inactive Toujeo SoloStar 300 unit/mL (1.5 mL) subcutaneous insulin pen RxNorm: 1802759 25 Unit(s) SQ QAM 02/12/2017 06/10/2017 Inactive Toujeo SoloStar 300 unit/mL (1.5 mL) subcutaneous insulin pen RxNorm: 3352238 10 Unit(s) SQ QAM 02/05/2017 02/11/2017 Inactive lisinopril 10 mg tablet RxNorm: 822981 1 Tablet(s) PO daily 02/01/2017 02/28/2017 Inactive atorvastatin 40 mg tablet RxNorm: 623646 1 Tablet(s) PO daily 02/01/2017 02/28/2017 Inactive doxycycline hyclate 100 mg capsule RxNorm: 0366224 1 Capsule(s) PO BID 02/01/2017 02/10/2017 Inactive clonazepam 1 mg tablet RxNorm: 895487 1 Tablet(s) PO Q8 as needed 10/09/2016 01/05/2017 Inactive ceftriaxone 1 gram solution for injection RxNorm: 6362363 Inj 10/06/2016 10/06/2016 Inactive cyclobenzaprine 10 mg tablet RxNorm: 153244 1/2-1 Tablet(s) PO TID PRN 07/18/2016 01/28/2017 Inactive clonazepam 1 mg tablet RxNorm: 104399 1 Tablet(s) PO Q8 as needed 05/31/2016 05/29/2016 Inactive clonazepam 1 mg tablet RxNorm: 455621 1 Tablet(s) PO Q8 as needed 05/31/2016 08/28/2016 Inactive Toujeo SoloStar 300 unit/mL (1.5 mL) subcutaneous insulin pen RxNorm: 3022207 10 Unit(s) SQ daily 05/23/2016 01/28/2017 Inactive Crestor 10 mg tablet RxNorm: 732443 1 Tablet(s) PO QHS 05/19/2016 01/28/2017 Inactive Crestor 10 mg tablet RxNorm: 123253 1 Tablet(s) PO QHS 05/19/2016 05/18/2016 Inactive clonazepam 1 mg tablet RxNorm: 977548 1 Tablet(s) PO Q8 as needed 04/25/2016 05/30/2016 Inactive prednisone 20 mg tablet RxNorm: 761469 3 Tablet(s) PO daily 02/11/2016 02/10/2016 Inactive prednisone 20 mg tablet RxNorm: 072143 3 Tablet(s) PO daily 02/11/2016 05/14/2016 Inactive Kenalog 40 mg/mL suspension for injection RxNorm: 2681049 Milliliter(s) Inj 01/20/2016 01/20/2016 Inactive aspirin 81 mg tablet,delayed release RxNorm: 142597 1 Tablet(s) PO daily No Start Date Active Brilinta 90 mg tablet RxNorm: 8125601 1 Tablet(s) PO BID No Start Date Active acetaminophen 500 mg tablet RxNorm: 243866 1-2 Tablet(s) PO as needed No Start Date Active clopidogrel 75 mg tablet RxNorm: 589592 1 Tablet(s) PO daily No Start Date 02/28/2017 Inactive Novolog Flexpen U-100 Insulin aspart 100 unit/mL subcutaneous RxNorm: 9606241 5 units with breakfast lunch and 10 supper Unit(s) SQ No Start Date 06/17/2018 Inactive clonazepam 1 mg tablet RxNorm: 623175 1 Tablet(s) PO QHS No Start Date 04/24/2016 Inactive Coreg 6.25 mg tablet RxNorm: 958630 1 Tablet(s) PO BID No Start Date 09/29/2018 Inactive acyclovir 400 mg tablet RxNorm: 124088 2 Tablet(s) PO 5x daily No Start Date 02/28/2017 Inactive Lyrica 50 mg capsule RxNorm: 554367 Capsule(s) PO BID No Start Date 06/09/2018 Inactive Vraylar 3 mg capsule RxNorm: 5094059 1 Capsule(s) PO daily No Start Date 03/12/2018 Inactive valsartan 80 mg tablet RxNorm: 984383 1 Tablet(s) PO daily No Start Date 10/22/2018 Inactive Medication Administered Medication Codes Instructions Start Date Status ketorolac 60 mg/2 mL intramuscular solution RxNorm: 4774123 Milliliter 10/21/2018 No longer Active Kenalog 40 mg/mL suspension for injection RxNorm: 3363392 1.5Milliliter 09/30/2018 No longer Active Kenalog 40 mg/mL suspension for injection RxNorm: 5285639 Milliliter 09/11/2018 No longer Active Kenalog 40 mg/mL suspension for injection RxNorm: 0711520 Milliliter 06/28/2018 No longer Active ketorolac 30 mg/mL injection solution RxNorm: 903300 2Milliliter 05/02/2018 No longer Active ceftriaxone 500 mg solution for injection RxNorm: 0257329 1Milliliter 02/16/2017 No longer Active Kenalog 40 mg/mL suspension for injection RxNorm: 7314550 1Milliliter 02/16/2017 No longer Active ceftriaxone 1 gram solution for injection RxNorm: 1525361 10/06/2016 No longer Active Kenalog 40 mg/mL suspension for injection RxNorm: 7451471 Milliliter 01/20/2016 No longer Active Immunizations Vaccine Codes Date Status Influenza CVX: 141 07/22/2018 completed Influenza CVX: 141 08/16/2017 completed Assessments Condition Codes Effective Dates Anorexia ICD-10: R63.0 ICD-9: 783.0 04/08/2019 Dizziness [...] to drugs ICD-10: I95.2 ICD-9: 458.8 02/27/2019 Atherosclerotic heart disease of [place] coronary artery without angina pectoris ICD-10: I25.10 [...] Reason For Visit Effective Dates Notes fatigue 04/08/2019 hand pain 04/03/2019 tinnitus 03/07/2019 [...] Item Item Code Result Date Culture Sputum 145043 LOWER RESPIRATORY TRACT CULTURE SEE NOTES 11/14/2018 Culture Sputum 751334 LOWER RESPIRATORY TRACT CULTURE SEE NOTES 10/16/2018 LIPID GRP [id number] CHOLESTEROL TNP:Duplicate Order 09/10/2018 LIPID GRP Triglyceride TNP:Duplicate Order 09/10/2018 LIPID GRP HDL CHOLESTEROL TNP:Duplicate Order 09/10/2018 LIPID GRP [id number] Chol/HDL Ratio TNP:Duplicate Order 09/10/2018 LIPID GRP [id number] LDL Cholesterol TNP:Duplicate Order 09/10/2018 A1C HPLC 1697718 Hgb A1c 53566-9 TNP:Duplicate Order 09/10/2018 C Diff An [id number] [facility] TNP:Lab Request 06/22/2018 C Diff An [id number] Toxin A/B TNP:Lab Request 06/22/2018 C Diff An [id number] C Diff Analyzer TNP:Lab Request 06/22/2018 C Diff An [id number] IC OK? TNP:Lab Request 06/22/2018 CBC [id number] WBC 6.4 10e9/L 05/02/2018 CBC 6460471 RBC 5.60 10e12/L 05/02/2018 CBC 0655827 HEMOGLOBIN 17.0 g/dL 05/02/2018 CBC 5984422 HEMATOCRIT 48.0 % 05/02/2018 CBC 7919955 MCV 85.7 fL 05/02/2018 CBC 2660498 MCH 30.4 pg 05/02/2018 CBC 8524421 MCHC 35.4 g/dL 05/02/2018 CBC 5409388 PLATELET COUNT 166 10e9/L 05/02/2018 CBC 2260675 Mean Plt Volume 11.6 fL 05/02/2018 CBC 6932476 Neut Auto 48.6 % 05/02/2018 CBC 8516331 Lymph Auto 41.7 % 05/02/2018 CBC 4251231 [place] Auto 8.1 % 05/02/2018 CBC 1839372 RDW 13.1 % 05/02/2018 CBC 1383758 Eos Auto 1.1 % 05/02/2018 CBC 6805722 Baso Auto 0.5 % 05/02/2018 CBC 0717211 Neutrophil Abs 3.11 10e9/L 05/02/2018 CBC 9436351 Lymphocyte Abs 2.67 10e9/L 05/02/2018 CBC 3663037 Monocyte Abs 0.52 10e9/L 05/02/2018 CBC 4304960 Eosinophil Abs 0.07 10e9/L 05/02/2018 CBC 0141646 RDW-SD 40.0 fL 05/02/2018 CBC 9257990 Basophil Abs 0.03 10e9/L 05/02/2018 CHEM 14 1846916 AST 17 U/L 05/02/2018 CHEM 14 5006006 ALT 17 U/L 05/02/2018 CHEM 14 2647079 BUN 17 mg/dL 05/02/2018 CHEM 14 3789540 ALBUMIN 4.0 g/dL 05/02/2018 CHEM 14 8442286 CHLORIDE 97 mmol/L 05/02/2018 CHEM 14 3342443 Bili Total 0.9 mg/dL 05/02/2018 CHEM 14 1174947 ALK PHOS 67 U/L 05/02/2018 CHEM 14 2068964 SODIUM 135 mmol/L 05/02/2018 CHEM 14 5768627 CREATININE 1.18 mg/dL 05/02/2018 CHEM 14 9082053 CALCIUM 9.4 mg/dL 05/02/2018 CHEM 14 1809572 POTASSIUM 4.4 mmol/L 05/02/2018 CHEM 14 1993229 TOTAL PROTEIN 6.9 g/dL 05/02/2018 CHEM 14 7234360 GLUCOSE 316 mg/dL 05/02/2018 CHEM 14 2513493 Bicarbonate 29 mmol/L 05/02/2018 CHEM 14 8976527 AGAP 9 mmol/L 05/02/2018 MEAN GLUC 6134383 Calc Mean Gluc 283 mg/dL 05/02/2018 A1C HPLC 2229342 Hgb A1c 77791-1 11.5 % 05/02/2018 GFR CALC 3742140 GFR Non Afr Amr >60 mL/min 05/02/2018 GFR CALC 3396085 GFR Afr Amr >60 mL/min 05/02/2018 JIC Gold [id number] JIC Gold Complete 02/28/2018 GFR CALC 9861857 GFR Non Afr Amr >60 mL/min 02/28/2018 GFR CALC 7129197 GFR Afr Amr >60 mL/min 02/28/2018 UA W/CII 0773434 UA Urine Appear Normal 02/28/2018 UA W/CII 2211908 UA Protein 1+ 02/28/2018 UA W/CII 4755326 UA Hemoglobin Negative 02/28/2018 UA W/CII 9947254 UA Glucose 4+ 02/28/2018 UA W/CII 3564416 UA Ketones Trace 02/28/2018 UA W/CII 6203258 UA pH 5.5 02/28/2018 UA W/CII 7849872 U Spec [place] 1.015 02/28/2018 UA W/CII 2596364 UA Bilirubin Negative 02/28/2018 UA W/CII 8992112 UA Nitrite NEG 02/28/2018 UA W/CII 4984354 UA Leuk Esteras Negative 02/28/2018 MICR 9671050 UA WBC/hpf 1 02/28/2018 MICR 2725027 UA RBC hpf 2 02/28/2018 MICR 3079305 UA WBC auto 3.8 /uL 02/28/2018 MICR 7596981 UA RBC auto 12.2 /uL 02/28/2018 MICR 3557426 UA SQ EPI auto 2.3 /uL 02/28/2018 MICR 9862620 UA H Cast auto 0.10 /uL 02/28/2018 CBC 9078814 WBC 6.4 10e9/L 02/28/2018 CBC 3310690 RBC 5.51 10e12/L 02/28/2018 CBC 0340223 HEMOGLOBIN 16.7 g/dL 02/28/2018 CBC 4825966 HEMATOCRIT 46.9 % 02/28/2018 CBC 3530392 MCV 85.1 fL 02/28/2018 CBC 4640523 MCH 30.3 pg 02/28/2018 CBC 1110090 MCHC 35.6 g/dL 02/28/2018 CBC 7771263 PLATELET COUNT 173 10e9/L 02/28/2018 CBC 9692188 Mean Plt Volume 11.6 fL 02/28/2018 CBC 8920594 Neut Auto 51.8 % 02/28/2018 CBC 2308156 Lymph Auto 39.9 % 02/28/2018 CBC 4494562 [place] Auto 7.3 % 02/28/2018 CBC 4777013 RDW 13.3 % 02/28/2018 CBC 5954413 Eos Auto 0.8 % 02/28/2018 CBC 6138512 Baso Auto 0.2 % 02/28/2018 CBC 9625367 Neutrophil Abs 3.32 10e9/L 02/28/2018 CBC 2302036 Lymphocyte Abs 2.55 10e9/L 02/28/2018 CBC 4022175 Monocyte Abs 0.47 10e9/L 02/28/2018 CBC 4318507 Eosinophil Abs 0.05 10e9/L 02/28/2018 CBC 4301164 RDW-SD 40.8 fL 02/28/2018 CBC 7587275 Basophil Abs 0.01 10e9/L 02/28/2018 CHEM 14 8059129 AST 17 U/L 02/28/2018 CHEM 14 8868685 ALT 17 U/L 02/28/2018 CHEM 14 6666993 BUN 20 mg/dL 02/28/2018 CHEM 14 2600306 ALBUMIN 4.1 g/dL 02/28/2018 CHEM 14 3340155 CHLORIDE 97 mmol/L 02/28/2018 CHEM 14 2805541 Bili Total 1.3 mg/dL 02/28/2018 CHEM 14 6935670 ALK PHOS 78 U/L 02/28/2018 CHEM 14 4886155 SODIUM 135 mmol/L 02/28/2018 CHEM 14 7139320 CREATININE 1.09 mg/dL 02/28/2018 CHEM 14 6909532 CALCIUM 9.6 mg/dL 02/28/2018 CHEM 14 1522967 POTASSIUM 3.8 mmol/L 02/28/2018 CHEM 14 9659958 TOTAL PROTEIN 7.3 g/dL 02/28/2018 CHEM 14 3644213 GLUCOSE 349 mg/dL 02/28/2018 CHEM 14 0738291 Bicarbonate 29 mmol/L 02/28/2018 CHEM 14 0466259 AGAP 9 mmol/L 02/28/2018 [place] Spotted Fever Igg/Igm 238575 FEI MT SPOTTED FEVER IGM EIA . 09/05/2017 [place] Spotted Fever Igg/Igm 861145 RMSF, IGM 0.17 index 09/05/2017 [place] Spotted Fever Igg/Igm 855013 FEI MT SPOTTED FEVER IGG EIA FLEX . 09/05/2017 [place] Spotted Fever Igg/Igm 610419 RMSF, IGG SCREEN-FLEX Positive 09/05/2017 Fei Mtn Spot'D Fev Igg 051805 RMSF, IGG- TITER IFA <1:64 09/05/2017 Ehrlichia Chaffeensis Antibody Igm 422315 EHRLICHIA CHAFFEENSIS IGM < 1:16 09/03/2017 Ehrlichia Chaffeensis Antibody Igg 978333 EHRLICHIA CHAFFEENSIS IGG <1:64 09/03/2017 Lymes Disease Total Antibodies With Western Blot Reflex B. BURGDORFERI, IGG/IGM 0.223 08/30/2017 [place]ymes Disease Total Antibodies With Western Blot Reflex 08/30/2017 C-Reactive Protein Qnt Crqnt CRP 0.00 mg/dl 08/27/2017 Sed Rate Ord21 ESR 8 mm/hr 08/27/2017 Comp Metabolic Wuj900 NA 135 mEq/L 08/16/2017 Comp Metabolic Mia969 K 4.1 mEq/L 08/16/2017 Comp Metabolic Vkj948 CL 98 mEq/L 08/16/2017 Comp Metabolic Gxw552 CO2 28.0 mEq/L 08/16/2017 Comp Metabolic Axo629 ANION GAP 13 08/16/2017 Comp Metabolic Pfz144 GLUCOSE 299 mg/dL 08/16/2017 Comp Metabolic Lwq546 Creat 0.9 mg/dL 08/16/2017 Comp Metabolic Bez994 eGFR 90 ml/min/1.73m2 08/16/2017 Comp Metabolic Fgn569 BUN 20 mg/dL 08/16/2017 Comp Metabolic Niv880 B/C Ratio 21.5 Ratio 08/16/2017 Comp Metabolic Xhf684 CALCIUM 9.2 mg/dL 08/16/2017 Comp Metabolic Fmc276 ALK PHOS 84 U/L 08/16/2017 Comp Metabolic Vif782 AST(SGOT) 19 U/L 08/16/2017 Comp Metabolic Dpy835 ALT(SGPT) 24 U/L 08/16/2017 Comp Metabolic Bvx585 BILI T 1.1 mg/dL 08/16/2017 Comp Metabolic Fhn857 ALBUMIN 4.2 g/dL 08/16/2017 Comp Metabolic Oos186 TPRO 7.2 g/dL 08/16/2017 Comp Metabolic Keu421 GLOB 3.0 g/dL 08/16/2017 Comp Metabolic Csd711 A/G Ratio 1.4 Ratio 08/16/2017 Comp Metabolic Fha926 Osmo 284 mOsmo 08/16/2017 %Hba1C Qkf133 % HbA1c 86190- 6 12.5 % 08/16/2017 %Hba1C Peh756 Gluc Ave 312 mg/dL 08/16/2017 Urine Culture Ucult Preliminary NO Growth Day 1 06/23/2017 Urine Culture Ucult Complete NO Growth Day 2 06/23/2017 C RAP A SC [id number] Strep A Negative 06/08/2017 %Hba1C Hrs344 % HbA1c 81714- 6 9.5 % 05/04/2017 %Hba1C Dut164 Gluc Ave 226 mg/dL 05/04/2017 Tsh Ord6 [...] 31.7 pg 05/04/2017 Cbc With Differential Ord2 Canadian% 8.5 % 05/04/2017 Cbc With Differential Ord2 [...] 2.48 K/ul 05/04/2017 Cbc With Differential Ord2 [place] ABS# 0.5 K/ul 05/04/2017 Cbc With Differential Ord2 Eos ABS# 0.1 K/ul 05/04/2017 Cbc With Differential Ord2 Baso ABS# 0.0 K/ul 05/04/2017 Comp Metabolic Plz771 NA 135 mEq/L 05/04/2017 Comp Metabolic Xxn326 K 4.2 mEq/L 05/04/2017 Comp Metabolic Kbe873 CL 99 mEq/L 05/04/2017 Comp Metabolic Fdb048 CO2 26.0 mEq/L 05/04/2017 Comp Metabolic Nnb851 ANION GAP 14 05/04/2017 Comp Metabolic Oyv502 GLUCOSE 277 mg/dL 05/04/2017 Comp Metabolic Ejt389 Creat 0.9 mg/dL 05/04/2017 Comp Metabolic Qjh162 eGFR 96 ml/min/1.73m2 05/04/2017 Comp Metabolic Gfo141 BUN 23 mg/dL 05/04/2017 Comp Metabolic Zwe880 B/C Ratio 26.1 Ratio 05/04/2017 Comp Metabolic Lgn205 CALCIUM 8.9 mg/dL 05/04/2017 Comp Metabolic Fcf272 ALK PHOS 81 U/L 05/04/2017 Comp Metabolic Jub398 AST(SGOT) 21 U/L 05/04/2017 Comp Metabolic Ksa009 ALT(SGPT) 27 U/L 05/04/2017 Comp Metabolic Yzm365 BILI T 1.2 mg/dL 05/04/2017 Comp Metabolic Ojc285 ALBUMIN 4.0 g/dL 05/04/2017 Comp Metabolic Nvt220 TPRO 6.7 g/dL 05/04/2017 Comp Metabolic Ejf586 GLOB 2.7 g/dL 05/04/2017 Comp Metabolic Hbh627 A/G Ratio 1.5 Ratio 05/04/2017 Comp Metabolic Rli538 Osmo 284 mOsmo 05/04/2017 C A/B FLU [id number] Influenza A Scr Negative 02/16/2017 C A/B FLU [id number] Influenza B Scr Positive 02/16/2017 Cbc With [...] 30.3 pg 05/23/2016 Cbc With Differential Ord2 Canadian% 8.8 % 05/23/2016 Cbc With Differential Ord2 [...] 2.07 K/ul 05/23/2016 Cbc With Differential Ord2 [place] ABS# 0.5 K/ul 05/23/2016 Cbc With Differential Ord2 Eos ABS# 0.1 K/ul 05/23/2016 Cbc With Differential Ord2 Baso ABS# 0.0 K/ul 05/23/2016 Lipid Ord30 CHOL 397 mg/dL 05/17/2016 Lipid Ord30 HDL 48.0 mg/dl 05/17/2016 Lipid Ord30 TRIG 578 mg/dL 05/17/2016 Lipid Ord30 LDL Unable to calculate Due to elevated triglycerides mg/dL 05/17/2016 Lipid Ord30 C/HDL 8.3 Ratio 05/17/2016 %Hba1C Dcg674 % HbA1c 10795- 6 12.4 % 05/16/2016 %Hba1C Myb461 Gluc Ave 309 mg/dL 05/16/2016 Cbc With [...] 30.4 pg 05/15/2016 Cbc With Differential Ord2 [place]% 7.8 % 05/15/2016 Cbc With Differential Ord2 [...] 2.04 K/ul 05/15/2016 Cbc With Differential Ord2 [place] ABS# 0.5 K/ul 05/15/2016 Cbc With Differential Ord2 Eos ABS# 0.1 K/ul 05/15/2016 Cbc With Differential Ord2 Baso ABS# 0.0 K/ul 05/15/2016 Tsh Ord6 hTSH II 1.70 uIU/mL 05/15/2016 Comp Metabolic Lxj561 NA 135 mEq/L 05/15/2016 Comp Metabolic Tpj799 K 3.9 mEq/L 05/15/2016 Comp Metabolic Mmr877 CL 96 mEq/L 05/15/2016 Comp Metabolic Bfl820 CO2 27.0 mEq/L 05/15/2016 Comp Metabolic Ozm470 ANION GAP 16 05/15/2016 Comp Metabolic Cwg752 GLUCOSE 183 mg/dL 05/15/2016 Comp Metabolic Ogq834 Creat 1.1 mg/dL 05/15/2016 Comp Metabolic Hjm162 eGFR 71 ml/min/1.73m2 05/15/2016 Comp Metabolic Iwk559 BUN 17 mg/dL 05/15/2016 Comp Metabolic Fsk979 B/C Ratio 14.9 Ratio 05/15/2016 Comp Metabolic Blq123 CALCIUM 9.6 mg/dL 05/15/2016 Comp Metabolic Ozg420 ALK PHOS 100 U/L 05/15/2016 Comp Metabolic Pbk844 AST(SGOT) 20 U/L 05/15/2016 Comp Metabolic Tqf167 ALT(SGPT) 20 U/L 05/15/2016 Comp Metabolic Giv384 BILI T 1.3 mg/dL 05/15/2016 Comp Metabolic Rkr291 ALBUMIN 4.6 g/dL 05/15/2016 Comp Metabolic Res478 TPRO 8.1 g/dL 05/15/2016 Comp Metabolic Ihr356 GLOB 3.5 g/dL 05/15/2016 Comp Metabolic Lln583 A/G Ratio 1.3 Ratio 05/15/2016 Comp Metabolic Gun655 Osmo 276 mOsmo 05/15/2016 Review of Systems System Result Effective Dates Eyes No eye discharge 04/08/2019 Eyes No [...] normal 04/08/2019 None Full Exam - General 1994 Ears/Nose/Throat lips/teeth/gingiva Overall: benign lips 04/08/2019 None [...] normal 03/07/2019 None Full Exam - General 1995 Ears/Nose/Throat lips/teeth/gingiva Overall: benign lips 03/07/2019 None [...] rate 01/13/2019 None Full Exam - General 1995 Cardiovascular auscultation of heart Overall: regular rate [...] of skin Location: face 05/04/2017 patch left mandaeism Full Exam - General 1994 Constitutional general [...] Codes Date URINALYSIS NONAUTO W/O SCOPE CPT-4: 52970 02/17/2019 KETOROLAC TROMETHAMINE INJ CPT-4: J1885 10/21/2018 TRIAMCINOLONE ACET INJ NOS CPT-4: J3301 09/30/2018 THER/PROPH/DIAG INJ SC/IM CPT-4: 84485 09/11/2018 TRIAMCINOLONE ACET INJ NOS CPT-4: J3301 09/11/2018 IMMUNIZATION ADMIN CPT- 4: 99324 07/22/2018 FLU VAC NO PRSV 4 MENA 3 YRS+ CPT-4: 57573 07/22/2018 TRIAMCINOLONE ACET INJ NOS CPT-4: J3301 06/28/2018 KETOROLAC TROMETHAMINE INJ CPT-4: J1885 05/02/2018 FLU VAC NO PRSV 4 MENA 3 YRS+ CPT-4: 63697 08/16/2017 IMMUNIZATION ADMIN CPT- 4: 59358 08/16/2017 URINALYSIS NONAUTO W/O SCOPE CPT-4: 66321 06/21/2017 TRIAMCINOLONE ACET INJ NOS CPT-4: J3301 05/04/2017 THER/PROPH/DIAG INJ SC/IM CPT-4: 53518 05/04/2017 TRIAMCINOLONE ACET INJ NOS CPT-4: J3301 02/16/2017 ROCEPHIN, PER 250 MG CPT- 4: J0696 02/16/2017 ROCEPHIN, PER 250 MG CPT- 4: J0696 10/06/2016 URINALYSIS NONAUTO W/O SCOPE CPT-4: 18184 07/18/2016 TRIAMCINOLONE ACET INJ NOS CPT-4: J3301 01/20/2016 Vital Signs Date Vital 04/08/2019 Blood Pressure 1: 92/60 Code: 8480-6 BMI: 33.0 Code: 21043- 5 Heart Rate 1: 114 bpm Height: 6'2" SpO2: 98% Weight: 257 lbs 04/03/2019 Blood Pressure 1: 126/70 Code: 8480-6 BMI: 33.0 Code: 19356-4 Heart Rate 1: 100 bpm Height: 6'2" SpO2: 97% Weight: 257 lbs 03/07/2019 Blood Pressure 1: 110/70 Code: 8480-6 BMI: 33.0 Code: 33904-9 Heart Rate 1: 112 bpm Height: 6'2" SpO2: 95% Weight: 257 lbs 02/27/2019 Blood Pressure 1: 110/80 Code: 8480-6 BMI: 33.0 Code: 37799-6 Heart Rate 1: 89 bpm Height: 6'2" SpO2: 95% Weight: 257 lbs 02/17/2019 Blood Pressure 1: 120/80 Code: 8480-6 Blood Pressure 2: 102/80 Code: 8480-6 Heart Rate 1: 89 bpm SpO2: 96% 01/13/2019 Blood Pressure 1: 120/70 Code: 8480-6 BMI: 34.2 Code: 36771-6 Heart Rate 1: 74 bpm Height: 6'2" SpO2: 96% Weight: 266 lbs 12/31/2018 Blood Pressure 1: 122/70 Code: 8480-6 BMI: 34.4 Code: 03523-5 Heart Rate 1: 90 bpm Height: 6'2" SpO2: 97% Temperature: 36.6 (C) / 97.8 (F) Weight: 268 lbs 12/26/2018 Blood Pressure 1: 118/72 Code: 8480-6 BMI: 34.4 Code: 12053-7 Heart Rate 1: 82 bpm Height: 6'2" SpO2: 98% Temperature: 36.6 (C) / 97.9 (F) Weight: 268 lbs 11/18/2018 Blood Pressure 1: 120/84 Code: 8480-6 BMI: 33.9 Code: 53935-6 Heart Rate 1: 77 bpm Height: 6'2" SpO2: 99% Temperature: 36.7 (C) / 98.1 (F) Weight: 264 lbs 11/12/2018 Blood Pressure 1: 138/76 Code: 8480-6 BMI: 33.9 Code: 69729-6 Heart Rate 1: 91 bpm Height: 6'2" SpO2: 99% Weight: 264 lbs 10/30/2018 Blood Pressure 1: 130/72 Code: 8480-6 BMI: 33.3 Code: 61632-2 Heart Rate 1: 83 bpm Height: 6'2" SpO2: 95% Temperature: 36.5 (C) / 97.7 (F) Weight: 259 lbs 10/24/2018 Blood Pressure 1: 130/70 Code: 8480-6 Heart Rate 1: 95 bpm Height: 6'2" SpO2: 96% 10/23/2018 Blood Pressure 1: 100/70 Code: 8480-6 Blood Pressure 2: 102/70 Code: 8480-6 BMI: 33.3 Code: 28703-1 Heart Rate 1: 106 bpm Height: 6'2" SpO2: 98% Weight: 259 lbs 10/21/2018 Blood Pressure 1: 140/90 Code: 8480-6 BMI: 32.9 Code: 10877-4 Heart Rate 1: 96 bpm Height: 6'2" SpO2: 92% Weight: 256 lbs 10/17/2018 Blood Pressure 1: 110/68 Code: 8480-6 BMI: 32.9 Code: 12599-5 Heart Rate 1: 82 bpm Height: 6'2" SpO2: 97% Weight: 256 lbs 10/14/2018 Blood Pressure 1: 124/70 Code: 8480-6 BMI: 33.6 Code: 07004-9 Heart Rate 1: 76 bpm Height: 6'2" SpO2: 99% Temperature: 36.3 (C) / 97.3 (F) Weight: 262 lbs 09/30/2018 Blood Pressure 1: 138/82 Code: 8480-6 BMI: 33.6 Code: 24815-7 Heart Rate 1: 82 bpm Height: 6'2" SpO2: 98% Temperature: 36.3 (C) / 97.3 (F) Weight: 262 lbs 09/09/2018 Blood Pressure 1: 140/80 Code: 8480-6 BMI: 33.0 Code: 58107-5 Heart Rate 1: 97 bpm Height: 6'2" SpO2: 93% Temperature: 36.8 (C) / 98.2 (F) Weight: 257 lbs 07/22/2018 Blood Pressure 1: 120/78 Code: 8480-6 BMI: 31.6 Code: 15086-6 Heart Rate 1: 87 bpm Height: 6'2" SpO2: 98% Weight: 246 lbs 07/16/2018 Blood Pressure 1: 132/74 Code: 8480-6 BMI: 31.2 Code: 37842-3 Heart Rate 1: 90 bpm Height: 6'2" SpO2: 96% Weight: 243 lbs 07/01/2018 Blood Pressure 1: 142/82 Code: 8480-6 BMI: 31.8 Code: 25516-1 Heart Rate 1: 88 bpm Height: 6'2" SpO2: 98% Weight: 248 lbs 06/28/2018 Blood Pressure 1: 132/76 Code: 8480-6 BMI: 31.8 Code: 30312-3 Heart Rate 1: 107 bpm Height: 6'2" SpO2: 98% Temperature: 37.9 (C) / 100.3 (F) Weight: 248 lbs 06/18/2018 Blood Pressure 1: 138/82 Code: 8480-6 BMI: 31.8 Code: 76592-3 Heart Rate 1: 82 bpm Height: 6'2" SpO2: 97% Weight: 248 lbs 06/04/2018 Blood Pressure 1: 128/84 Code: 8480-6 BMI: 33.9 Code: 00829-1 Heart Rate 1: 86 bpm Height: 6'2" SpO2: 95% Weight: 264 lbs 05/13/2018 Blood Pressure 1: 130/80 Code: 8480-6 BMI: 31.1 Code: 87905-5 Heart Rate 1: 100 bpm Height: 6'2" SpO2: 94% Weight: 242 lbs 05/02/2018 Blood Pressure 1: 134/84 Code: 8480-6 BMI: 31.2 Code: 73620-6 Heart Rate 1: 93 bpm Height: 6'2" SpO2: 98% Weight: 243 lbs 04/29/2018 Blood Pressure 1: 142/88 Code: 8480-6 BMI: 31.6 Code: 36158-5 Heart Rate 1: 96 bpm Height: 6'2" SpO2: 96% Temperature: 36.7 (C) / 98.1 (F) Weight: 246 lbs 03/13/2018 Blood Pressure 1: 120/76 Code: 8480-6 BMI: 30.9 Code: 82412-8 Heart Rate 1: 112 bpm Height: 6'2" SpO2: 97% Weight: 241 lbs 03/07/2018 Blood Pressure 1: 108/78 Code: 8480-6 BMI: 30.0 Code: 16273-6 Heart Rate 1: 87 bpm Height: 6'2" SpO2: 98% Weight: 234 lbs 02/28/2018 Blood Pressure 1: 106/74 Code: 8480-6 BMI: 30.0 Code: 25340-5 Heart Rate 1: 101 bpm Height: 6'2" SpO2: 98% Temperature: 36.4 (C) / 97.5 (F) Weight: 234 lbs 02/13/2018 Blood Pressure 1: 110/78 Code: 8480-6 BMI: 30.0 Code: 92718-6 Heart Rate 1: 106 bpm Height: 6'2" SpO2: 98% Weight: 234 lbs 01/29/2018 Blood Pressure 1: 106/68 Code: 8480-6 BMI: 30.0 Code: 96928-4 Heart Rate 1: 108 bpm Height: 6'2" SpO2: 98% Weight: 234 lbs 08/27/2017 Blood Pressure 1: 134/76 Code: 8480-6 Heart Rate 1: 98 bpm Height: SpO2: 97% Weight: 08/16/2017 Blood Pressure 1: 128/80 Code: 8480-6 BMI: 32.0 Code: 57725-7 Heart Rate 1: 94 bpm Height: 6'2" [...] 1: 142/92 Code: 8480-6 BMI: 31.8 Code: 60505-5 Heart Rate 1: 102 bpm Height: 6'2" [...] 1: 122/72 Code: 8480-6 BMI: 31.8 Code: 78869-6 Heart Rate 1: 85 bpm Height: 6'2" SpO2: 96% Temperature: 36.6 (C) / 97.9 (F) Weight: 248 lbs 02/12/2017 Blood Pressure 1: 126/76 Code: 8480-6 BMI: 31.8 Code: 76594-6 Heart Rate 1: 106 bpm Height: 6'2" SpO2: 91% Weight: 248 lbs 02/05/2017 Blood Pressure 1: 146/86 Code: 8480-6 BMI: 31.9 Code: 11832-4 Heart Rate 1: 98 bpm Height: 6'2" SpO2: 87% Temperature: 36.7 (C) / 98.0 (F) Weight: 248 lbs 8 oz 01/29/2017 Blood Pressure 1: 132/84 Code: 8480-6 BMI: 31.8 Code: 75635-5 Heart Rate 1: 83 bpm Height: 6'2" SpO2: 97% Weight: 248 lbs 10/13/2016 Blood Pressure 1: 128/72 Code: 8480-6 Heart Rate 1: 86 bpm SpO2: 94% 10/09/2016 Blood Pressure 1: 128/68 Code: 8480-6 Heart Rate 1: 136 bpm SpO2: 94% Temperature: 36.8 (C) / 98.2 (F) 10/06/2016 Blood Pressure 1: 140/80 Code: 8480-6 BMI: 32.1 Code: 56460-5 Heart Rate 1: 94 bpm Height: 6'2" SpO2: 95% Weight: 250 lbs 07/18/2016 Blood Pressure 1: 128/86 Code: 8480-6 BMI: 32.1 Code: 31822-7 Heart Rate 1: 89 bpm Height: 6'2" SpO2: 96% Weight: 250 lbs 06/22/2016 Blood Pressure 1: 118/70 Code: 8480-6 BMI: 32.1 Code: 50105-2 Heart Rate 1: 70 bpm Height: 6'2" SpO2: 97% Weight: 250 lbs 05/23/2016 Blood Pressure 1: 128/80 Code: 8480-6 BMI: 32.1 Code: 86247-3 Heart Rate 1: 76 bpm Height: 6'2" SpO2: 98% Weight: 250 lbs 05/15/2016 Blood Pressure 1: 110/90 Code: 8480-6 BMI: 31.3 Code: 99710-0 Heart Rate 1: 111 bpm Height: 6'2" SpO2: 97% Temperature: 36.6 (C) / 97.8 (F) Weight: 244 lbs 01/20/2016 Blood Pressure 1: 128/76 Code: 8480-6 BMI: 33.0 Code: 50239-6 Heart Rate 1: 103 bpm Height: 6'2" SpO2: 95% Weight: 257 lbs Functional Status No Functional Status data History of Present Illness Symptom Name Status Result Effective Date Notes Quality constant 04/08/2019 None Onset and Resolution [...] 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 PATIENT, LEVEL IV Diagnosis: Other fatigue[ICD10: R53.83] Diagnosis: Other malaise[ICD10: R53.81] Diagnosis: Anorexia[ICD10: R63.0] Diagnosis: Palpitations[ICD10: R00.2] Diagnosis: Weakness[ICD10: R53.1] Diagnosis: Dizziness and giddiness[ICD10: R42] Madeline Ha MD, [facility] CPT- 4: 56151 04/08/2019 ([id number]) 14348 EST. PATIENT, LEVEL III Diagnosis: Pain in left finger(s)[ICD10: M79.645] Diagnosis: Pain in left hand[ICD10: M79.642] Diagnosis: Contusion of left hand, initial encounter[ICD10: S60.222A] Diagnosis: Nasal congestion[ICD10: R09.81] Diagnosis: Headache[ICD10: R51] Melida Ha MD, [facility] CPT-4: 62127 04/03/2019 ([id number]) 80679 EST. PATIENT, LEVEL III Diagnosis: Essential (primary) hypertension[ICD10: I10] Marcela Ha MD, [facility] CPT-4: 70067 03/07/2019 ([id number]) 77468 EST. PATIENT, LEVEL III Diagnosis: Hypotension due to drugs[ICD10: I95.2] Marcela Ha MD, [facility] CPT-4: 52786 02/27/2019 ([id number]) 52939 EST. PATIENT, LEVEL III Diagnosis: Hypotension due to drugs[ICD10: I95.2] Diagnosis: Other fatigue[ICD10: R53.83] Marcela Ha MD, [facility] CPT-4: 69055 02/17/2019 ([id number]) 71633 EST. 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 PATIENT, LEVEL IV Diagnosis: Type 2 diabetes mellitus with hyperglycemia[ICD10: E11.65] Diagnosis: Epigastric pain[ICD10: R10.13] Diagnosis: Pain in joints of right hand[ICD10: M25.541] Diagnosis: Shortness of breath[ICD10: R06.02] Marcela Ha MD, [facility] CPT- 4: 43967 12/31/2018 36563 EST. PATIENT, LEVEL III Diagnosis: Other chest pain[ICD10: R07.89] Diagnosis: Cough[ICD10: R05] Madeline Ha MD, [facility] CPT-4: 84591 12/26/2018 ([id number]) 16468 EST. PATIENT, LEVEL III Diagnosis: Cough[ICD10: R05] Melida Ha MD, [facility] CPT-4: 91985 11/18/2018 ([id number]) 55245 EST. PATIENT, LEVEL III Diagnosis: Cough[ICD10: R05] Diagnosis: Pneumonia due to other Gram-negative bacteria[ICD10: J15.6] Marcela Ha MD, [facility] CPT-4: 16438 11/12/2018 ([id number]) 82726 EST. PATIENT, LEVEL III Diagnosis: Pneumonia due to other Gram-negative bacteria[ICD10: J15.6] Diagnosis: Cough[ICD10: R05] Melida Ha MD, [facility] CPT-4: 97559 10/30/2018 ([id number]) 77319 EST. PATIENT, LEVEL II Diagnosis: Pain in joints of right hand[ICD10: M25.541] Diagnosis: Trigger finger, right middle finger[ICD10: M65.331] Marcela Ha MD, [facility] CPT-4: 68404 10/24/2018 ([id number]) 37236 EST. PATIENT, LEVEL IV Diagnosis: Essential (primary) hypertension[ICD10: I10] Diagnosis: Type 2 diabetes mellitus with foot ulcer[ICD10: E11.621] Melida Ha MD, [facility] CPT-4: 93458 10/23/2018 ([id number]) 27983 EST. PATIENT, LEVEL III Diagnosis: Cellulitis of right finger[ICD10: L03.011] Diagnosis: Type 2 diabetes mellitus with foot ulcer[ICD10: E11.621] Diagnosis: Pain in right hand[ICD10: M79.641] Melida Ha MD, [facility] CPT- 4: 19759 10/21/2018 46702 EST. PATIENT, LEVEL III Diagnosis: Spontaneous ecchymoses[ICD10: R23.3] Diagnosis: Cellulitis of right lower limb[ICD10: L03.115] Diagnosis: Cellulitis of left lower limb[ICD10: L03.116] Madeline Ha MD, [facility] CPT-4: 97704 10/17/2018 ([id number]) 01133 EST. PATIENT, LEVEL III Diagnosis: Cough[ICD10: R05] Diagnosis: Acute bronchitis, unspecified[ICD10: J20.9] Melida Ha MD, [facility] CPT-4: 10383 10/14/2018 39894 EST. PATIENT, LEVEL III Diagnosis: Acute laryngopharyngitis[ICD10: J06.0] Diagnosis: Cough[ICD10: R05] Madeline Ha MD, [facility] CPT-4: 12150 09/30/2018 ([id number]) 30221 EST. PATIENT, LEVEL III Diagnosis: Acute recurrent maxillary sinusitis[ICD10: J01.01] Diagnosis: Cough[ICD10: R05] Diagnosis: Type 2 diabetes mellitus with hyperglycemia[ICD10: E11.65] Marcela Ha MD, [facility] CPT-4: 92440 09/09/2018 ([id number]) 07742 EST. PATIENT, LEVEL IV Diagnosis: Essential (primary) hypertension[ICD10: I10] Diagnosis: Mixed hyperlipidemia[ICD10: E78.2] Diagnosis: Bipolar disorder, current episode depressed, moderate[ICD10: F31.32] Diagnosis: Type 2 diabetes mellitus with other specified complication[ICD10: E11.69] Melida Ha MD, [facility] CPT-4: 20342 07/22/2018 ([id number]) 81302 EST. PATIENT, LEVEL III Diagnosis: Insomnia due to medical condition[ICD10: G47.01] Marcela Ha MD, [facility] CPT-4: 39730 07/16/2018 ([id number]) Miscellaneous no charge Diagnosis: Cough[ICD10: R05] Madeline Ha MD, [facility] CPT-4: 99534 07/01/2018 59651 EST. PATIENT, LEVEL III Diagnosis: Cough[ICD10: R05] Diagnosis: Acute laryngopharyngitis[ICD10: J06.0] Diagnosis: Other allergic rhinitis[ICD10: J30.89] Madeline Ha MD, [facility] CPT- 4: 69581 06/28/2018 ([id number]) 42681 EST. PATIENT, LEVEL IV Diagnosis: Type 2 diabetes mellitus with hyperglycemia[ICD10: E11.65] Diagnosis: Essential (primary) hypertension[ICD10: I10] Melida Ha MD, [facility] CPT-4: 00237 06/18/2018 ([id number]) 59824 EST. PATIENT, LEVEL IV Diagnosis: Type 2 diabetes mellitus with hyperglycemia[ICD10: E11.65] Diagnosis: Essential (primary) hypertension[ICD10: I10] Diagnosis: Localized edema[ICD10: R60.0] Melida Ha MD, [facility] CPT-4: 00684 06/04/2018 ([id number]) 83196 EST. PATIENT, LEVEL III Diagnosis: Type 2 diabetes mellitus with hyperglycemia[ICD10: E11.65] Diagnosis: Myalgia[ICD10: M79.1] Diagnosis: Pain in right hip[ICD10: M25.551] Diagnosis: Pain in left hip[ICD10: M25.552] Marcela Ha MD, [facility] CPT- 4: 09301 05/13/2018 ([id number]) 26344 EST. PATIENT, LEVEL III Diagnosis: Myalgia[ICD10: M79.1] Diagnosis: Pain in right hip[ICD10: M25.551] Diagnosis: Pain in left hip[ICD10: M25.552] Marcela Ha MD, [facility] CPT- 4: 72685 05/02/2018 ([id number]) 21758 EST. PATIENT, LEVEL IV Diagnosis: Essential (primary) hypertension[ICD10: I10] Diagnosis: Type 2 diabetes mellitus with hyperglycemia[ICD10: E11.65] Diagnosis: Major depressive disorder, single episode, moderate[ICD10: F32.1] Diagnosis: Myalgia[ICD10: M79.1] Marcela Ha MD, [facility] CPT-4: 45002 04/29/2018 ([id number]) 80618 EST. PATIENT, LEVEL IV Diagnosis: Type 2 diabetes mellitus with hyperglycemia[ICD10: E11.65] Diagnosis: Essential (primary) hypertension[ICD10: I10] Diagnosis: Major depressive disorder, single episode, moderate[ICD10: F32.1] Melida Ha MD, [facility] CPT-4: 14776 03/13/2018 ([id number]) 61219 EST. PATIENT, LEVEL III Diagnosis: Type 2 diabetes mellitus with hyperglycemia[ICD10: E11.65] Diagnosis: Bipolar disorder, current episode depressed, moderate[ICD10: F31.32] Diagnosis: Orthostatic hypotension[ICD10: I95.1] Marcela Ha MD, [facility] CPT-4: 22952 03/07/2018 ([id number]) 20583 EST. PATIENT, LEVEL IV Diagnosis: Type 2 diabetes mellitus with hyperglycemia[ICD10: E11.65] Diagnosis: Major depressive disorder, single episode, moderate[ICD10: F32.1] Diagnosis: Orthostatic hypotension[ICD10: I95.1] Diagnosis: Other fatigue[ICD10: R53.83] Marcela Ha MD, [facility] CPT-4: 17359 02/28/2018 88225 EST. PATIENT, LEVEL IV Diagnosis: Other fatigue[ICD10: R53.83] Diagnosis: Other malaise[ICD10: R53.81] Diagnosis: Gastro-esophageal reflux disease without esophagitis[ICD10: K21.9] Madeline Ha MD, [facility] CPT-4: 93422 02/13/2018 ([id number]) 37777 EST. PATIENT, LEVEL IV Diagnosis: Type 2 diabetes mellitus with foot ulcer[ICD10: E11.621] Diagnosis: Essential (primary) hypertension[ICD10: I10] Diagnosis: Gastro-esophageal reflux disease without esophagitis[ICD10: K21.9] Marcela Ha MD, [facility] CPT-4: 40571 01/29/2018 77626 EST. PATIENT, LEVEL III Diagnosis: Other malaise[ICD10: R53.81] Diagnosis: Other fatigue[ICD10: R53.83] Diagnosis: Pain in right shoulder[ICD10: M25.511] Diagnosis: Pain in left shoulder[ICD10: M25.512] Madeline Ha MD, [facility] CPT- 4: 27819 08/27/2017 ([id number]) 69744 EST. PATIENT, LEVEL IV Diagnosis: Essential (primary) hypertension[ICD10: I10] Diagnosis: Type 2 diabetes mellitus with hyperglycemia[ICD10: E11.65] Diagnosis: VACCIN FOR INFLUENZA[ICD10: Z23] Melida Ha MD, [facility] CPT-4: 82383 08/16/2017 25758 EST. PATIENT, LEVEL III Diagnosis: Zoster without complications[ICD10: B02.9] Madeline Ha MD, [facility] CPT-4: 76111 07/26/2017 ([id number]) 15129 EST. PATIENT, LEVEL III Diagnosis: Cellulitis of right lower limb[ICD10: L03.115] Marcela Ha MD, [facility] CPT-4: 17907 07/03/2017 34713 EST. PATIENT, LEVEL II Diagnosis: Laceration without foreign body of left forearm, initial encounter[ICD10: S51.812A] Marcela Ha MD, [facility] CPT-4: 08806 06/29/2017 ([id number]) 57651 EST. PATIENT, LEVEL III Diagnosis: Cellulitis of right lower limb[ICD10: L03.115] Diagnosis: Type 2 diabetes mellitus with foot ulcer[ICD10: E11.621] Marcela Ha MD, [facility] CPT-4: 38824 06/18/2017 ([id number]) 25938 EST. PATIENT, LEVEL IV Diagnosis: Cellulitis of right lower limb[ICD10: L03.115] Diagnosis: Acute laryngopharyngitis[ICD10: J06.0] Diagnosis: Gastro-esophageal reflux disease without esophagitis[ICD10: K21.9] Marcela Ha MD, [facility] CPT-4: 20886 06/07/2017 ([id number]) 51402 EST. PATIENT, LEVEL III Diagnosis: Type 2 diabetes mellitus with hyperglycemia[ICD10: E11.65] Diagnosis: Insect bite (nonvenomous) of abdominal wall, initial encounter[ICD10: S30.861A] Marcela Ha MD, [facility] CPT-4: 13217 05/17/2017 ([id number]) 15906 EST. PATIENT, LEVEL III Diagnosis: Allergic contact dermatitis due to plants, except food[ICD10: L23.7] Melida Ha MD, [facility] CPT-4: 75465 05/04/2017 ([id number]) 62746 EST. PATIENT, LEVEL III Diagnosis: Essential (primary) hypertension[ICD10: I10] Marcela Ha MD, [facility] CPT-4: 15934 03/15/2017 ([id number]) 73122 EST. PATIENT, LEVEL III Diagnosis: Cough[ICD10: R05] Diagnosis: Essential (primary) hypertension[ICD10: I10] Marcela Ha MD, [facility] CPT-4: 38631 03/01/2017 ([id number]) [id number] EST. PATIENT, LEVEL III Diagnosis: Cough[ICD10: R05] Diagnosis: Nasal congestion[ICD10: R09.81] Diagnosis: Acute recurrent maxillary sinusitis[ICD10: J01.01] Marcela Ha MD, [facility] CPT-4: 08932 02/16/2017 ([id number]) 31403 EST. PATIENT, LEVEL III Diagnosis: Type 2 diabetes mellitus with hyperglycemia[ICD10: E11.65] Marcela Ha MD, [facility] CPT-4: 99106 02/12/2017 ([id number]) 30823 EST. PATIENT, LEVEL IV Diagnosis: Type 2 diabetes mellitus with hyperglycemia[ICD10: E11.65] Diagnosis: Muscle weakness (generalized)[ICD10: M62.81] Diagnosis: Disorientation, unspecified[ICD10: R41.0] Marcela Ha MD, [facility] CPT-4: 38572 02/05/2017 ([id number]) Patient admitted to the hospital from clinic (NO CHARGE) Diagnosis: Type 2 diabetes mellitus with hyperglycemia[ICD10: E11.65] Diagnosis: Disorientation, unspecified[ICD10: R41.0] Diagnosis: Muscle weakness (generalized)[ICD10: M62.81] Marcela Ha MD [facility] CPT-4: 71247W 01/29/2017 ([id number]) Miscellaneous no charge Diagnosis: Cellulitis of right lower limb[ICD10: L03.115] Marcela Ha MD [facility] CPT-4: 62531 10/13/2016 ([id number]) Miscellaneous no charge Diagnosis: Type 2 diabetes mellitus with foot ulcer[ICD10: E11.621] Diagnosis: Pain in right foot[ICD10: M79.671] Marcela Ha MD [facility] CPT- 4: 84626 10/09/2016 [id number] EST. PATIENT, LEVEL II Diagnosis: Cellulitis of right lower limb[ICD10: L03.115] Marcela Ha MD [facility] CPT-4: 26510 10/06/2016 ([id number]) 67544 EST. PATIENT, LEVEL IV Diagnosis: Low back pain[ICD10: M54.5] Diagnosis: Other deformities of toe(s) (acquired), left foot[ICD10: M20.5X2] Diagnosis: Type 2 diabetes mellitus with foot ulcer[ICD10: E11.621] Marcela Ha MD [facility] CPT-4: 26152 07/18/2016 ([id number]) [id number] EST. PATIENT, LEVEL III Diagnosis: Type 2 diabetes mellitus with hyperglycemia[ICD10: E11.65] Marcela Ha MD, [facility] CPT-4: 92789 06/22/2016 ([id number]) 42766 EST. 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 PATIENT, LEVEL IV Diagnosis: Type 2 diabetes mellitus with other specified complication[ICD10: E11.69] Diagnosis: Dehydration[ICD10: E86.0] [facility] CPT-4: 11186 05/15/2016 ([id number]) OFFICE VISIT, NEW - LEVEL 3 Diagnosis: Allergic contact dermatitis due to plants, except food[ICD10: L23.7] [facility]eline [facility] CPT-4: 81720 01/20/2016 Plan of Care Planned Activity Notes Codes Status Date Visit Plan: Fatigue, malaise, no appetitie, dizziness, palpitations, near syncope - discussed with Dr. Ha - will send for IV fluids and set up an event monitor - pt is to notify clinic if symptoms do not improve, if they worsen, or with any changes, questions, or concerns. 04/08/2019 Appointment: Madeline Kennedy WPtel: [facility] (30 min) Complex 04/08/2019 Patient Education: Patient [...] sinus congestion. 04/03/2019 Appointment: Melida Ha WPtel: [address] [place], [place] [address] (15 min) Moderate 04/03/2019 Patient Education: Patient Medication Summary Completed 04/03/2019 Care Plan: X-RAY EXAM OF HAND LOINC : 10129-0 Pending 04/03/2019 Appointment: Marcela Oshea WPtel: [address] [place], [place] [phone] [place] (30 min) Complex 03/14/2019 Visit Plan: HTN -heart rate not well controlled -decrease valsartan -start metoprolol 25mg daily -return next week for blood pressure check -10 days for appt -discussed scheduling f/u appt with Dr Brennan as well -patient verbalized understanding of plan. 03/07/2019 Appointment: Marcela Oshea WPtel: [address] [place], [place] [phone] (30 min) Complex 03/07/2019 Patient Education: Patient [...] any concerns 02/27/2019 Appointment: Marcela Oshea WPtel: [address] [place], [place] [phone] (30 min) Complex 02/27/2019 Patient Education: Patient Medication Summary Completed 02/27/2019 Visit Plan: Orthostasis -decrease coreg -monitor symptoms and follow up in 10 days- sooner if needed Fatigue-check labs 02/17/2019 Appointment: Marcela Oshea WPtel: [address] [place], [place] [phone] (30 min) Complex 02/17/2019 Patient Education: Patient Medication Summary Completed 02/17/2019 Appointment: Marcela Oshea WPtel: [address] [place], [place] [phone] (30 min) Complex 01/14/2019 Visit Plan: Hypertension [...] Marcela Oshea WPtel: [facility]5 [phone] (30 min) Complex 01/10/2019 Visit Plan: Epigastric pain -start protonix daily- monitor symptoms Chest pain -work up negative done last week with Madeline-recommend appt with Dr Brennan Joint pain-check inflammation makers DM-check Hgb a1c 12/31/2018 Appointment: Marcela Oshea WPtel: [phone] [phone] (15 min) Moderate 12/31/2018 Patient Education: Patient Medication Summary Completed 12/31/2018 Visit Plan: chest pain - EKG and cardiac enzymes OK - discussed with Dr. Ha - will treat for pneumonia - pt is to notify clinic if symptoms do not improve, if they worsen, or with any changes questions, or concerns. 12/26/2018 Appointment: Madeline Kennedy WPtel: [phone] [facility] (30 min) Complex 12/26/2018 Patient Education: Patient Medication Summary Completed 12/26/2018 Referral: Andrew Cross Patient informed. Referral info faxed. Completed 11/26/2018 Visit Plan: cough - improved - continue with inhalers - continue with symbicort - rx for proair for PRN use when pt is feelign short of breath with activity. 11/18/2018 Appointment: Melida Ha WPtel: [facility] (15 min) Moderate 11/18/2018 Patient Education: [...] understanding of plan. 11/12/2018 Appointment: Marcela Osheal: [facility]5 [phone] (30 min) Complex 11/12/2018 Patient Education: Patient Medication Summary Completed 11/12/2018 Patient Education: Kristancort - 18-64 - eCoshaniqua Completed 11/12/2018 Care Plan: Referral Order SNOMED-CT : 196389699 Pending 11/12/2018 Referral: Niko Mantilla Referral Completed 11/04/2018 Visit Plan: Pneumonia, cough - recent diagnosis of Moraxella Cattharalis - with sensitivity to levaquin - will give 2 wks of levaquin since he had improvement but no full resolution of symptoms. 10/30/2018 Appointment: Melida Ha WPtel: [facility]5 [facility]6[address] 30 min appointments only in this slot 10/30/2018 Patient Education: Patient Medication Summary Completed 10/30/2018 Visit Plan: Right hand-joint pain and swelling -negative for gout -treated for cellulitis right 2nd mcp joint -now having difficulty with long finger "locking" -Dr Ha in to evaluate patient and tape index and long finger in place-refer to Dr Mantilla for evaluation 10/24/2018 Appointment: Marcela Oshea WPtel: [facility]5 [phone] (30 min) Complex 10/24/2018 Patient Education: Patient Medication Summary Completed 10/24/2018 Care Plan: Referral Order SNOMED-CT : 687391728 Pending 10/24/2018 Visit Plan: Hypotension - discussed [...] controlled. 10/23/2018 Appointment: Mel[facility]el[phone] [place] (15 min) Moderate 10/23/2018 Patient [...] plan. 10/21/2018 Appointment: Marcel[facility]Ptel[facility] [phone] [phone] [place] (30 min) Complex 10/21/2018 [...] discharge. 10/17/2018 Appointment: Madeline Kennedy WPtel: [phone] [facility] (15 min) Moderate 10/17/2018 Patient Education: [...] worsen. 10/14/2018 Appointment: Marcela Oshea WPtel: [phone] [phone] [place] (15 min) Moderate 10/14/2018 Patient Education: Patient Medication Summary Completed 10/14/2018 Care Plan: CHEST X-RAY 2VW FRONTAL&LATL LOINC : 27603-2 Pending 10/14/2018 Visit Plan: URI - Pt [...] spray. 09/30/2018 Appointment: Madeline Kennedy WPtel: [phone] [facility] (15 min) Moderate 09/30/2018 Patient Education: [...] Marcela Oshea WPtel: [facility]5 [phone] (15 min) Moderate 09/09/2018 Patient Education: Patient Medication Summary Completed 09/09/2018 Patient Education: Patient Medication Summary Completed 09/06/2018 Patient Education: Cholesterol Management Completed 09/06/2018 Care Plan: Comp Metabolic Pending 09/06/2018 Care Plan: Cbc With Differential Pending 09/06/2018 Care Plan: %Hba1C LOINC : 92202-7 Pending 09/06/2018 Care Plan: Tsh Pending 09/06/2018 Care Plan: Lipid Pending 09/06/2018 Appointment: Marcela Oshea WPtel: [facility]5 [phone] (15 min) Moderate 08/26/2018 Appointment: Marcela Oshea WPtel: [address] [place], [place] [phone] (15 min) Moderate 08/23/2018 Visit Plan: Hypertension [...] clinic. 07/22/2018 Appointment: Melida Ha WPtel: [phone] [facility] (15 min) Moderate 07/22/2018 Patient Education: [...] insomnia. 07/16/2018 Appointment: Marcela Oshea WPtel: [phone] [phone] (30 min) Complex 07/16/2018 Patient Education: Patient Medication Summary Completed 07/16/2018 Visit Plan: cough - improved - notify clinic if symptoms do not completely resolve, or with any questions or concerns. 07/01/2018 Appointment: Madeline Kennedy WPtel: [address] [facility] (15 min) Moderate 07/01/2018 Patient [...] spray. 06/28/2018 Appointment: Madeline Kennedy WPtel: [phone] [facility]6[address] (15 min) Moderate 06/28/2018 Patient [...] home. 06/18/2018 Appointment: Melida Ha [facility]Ptel[facility] (15 min) Moderate 06/18/2018 [...] improves. 06/04/2018 Appointment: Melida Ha WPtel: [phone] [facility] (15 min) Moderate 06/04/2018 Patient Education: [...] allow for greater blood glucose control. Joint dzzt-rvopcytf-ndqrepr-symptoms have improved -stop meloxicam due to upset stomach-call if symptoms return 05/13/2018 Appointment: Marcela Oshea WPtel: [phone] [phone] (30 min) Complex 05/13/2018 Patient Education: Patient Medication Summary Completed 05/13/2018 Visit Plan: Bilateral hip ihcv-wacyodzy-zlggepf IM injection administered today for c/o continued myalgia/arthralgia. Patient to start taking Meloxicam 15mg PO daily. Advised to return to clinic if symptoms do not improve. 05/02/2018 Appointment: Marcela Oshea WPtel: [phone] [phone] (30 min) Complex 05/02/2018 Patient Education: [...] readings at home. Diabetes Mellitus -check labs Pzbmopeg-iggmoxx-psdm bite-rx for doxycycline-follow up in 2 weeks 04/29/2018 Appointment: Marcela Oshea WPtel: [phone] [phone] [place] (15 min) Moderate 04/29/2018 Patient Education: Patient Medication Summary Completed 04/29/2018 Appointment: Melida Ha WPtel: [phone] [facility] [place] (15 min) Moderate 04/15/2018 Appointment: Marcela Oshea WPtel: [phone] [phone] [place] (30 min) Complex 03/21/2018 Visit [...] cymbalta 03/13/2018 Appointment: Melida Ha WPtel: [phone] [facility] [place] (30 min) Complex 03/13/2018 Patient Education: Patient Medication Summary Completed 03/13/2018 Visit Plan: DM-continue same medications-monitor blood sugars routinely as directed -rx for new glucometer and test strips provided Bipolar- currently depressed-patient start on vraylar-follow up in 2 weeks, sooner if needed. Patient and verbalied understanding of plan. Hypotension-stay off losartan 03/07/2018 Appointment: Marcela Oshea WPtel: [facility]7 [phone] (30 min) Complex 03/07/2018 Patient Education: Patient Medication Summary Completed 03/07/2018 Appointment: Melida Ha WPtel: [phone] (15 min) Moderate 03/04/2018 [...] this patient. 02/28/2018 Appointment: Marcela Oshea WPtel: [phone] (30 min) Complex 02/28/2018 Patient [...] the symptoms are not improving. 02/13/2018 Appointment: Maedline Kennedy WPtel: [phone] [facility] (15 min) Moderate 02/13/2018 Patient Education: Patient Medication Summary Completed 02/13/2018 Referral: Sun Glynn Patient informed. Referral info faxed. Completed 02/01/2018 Visit Plan: DM-weight loss-not checking blood sugars-patient sent for labs today HTN-low rqyqq-kxwqphh-bgvzu labs Callus of foot and fissue of [...] Oshea [facility]Ptel: [phone] [phone] (30 min) Complex 01/29/2018 Patient Education: Patient Medication Summary Completed 01/29/2018 Care Plan: Comp Metabolic Cancelled 01/29/2018 Care Plan: Cbc With Differential Cancelled 01/29/2018 Care Plan: %Hba1C LOINC : 91716-2 Cancelled 01/29/2018 Care Plan: Referral Order SNOMED-CT : [id number] Cancelled 01/29/2018 Visit Plan: Fatigue, malaise, joint [...] or concerns. 08/27/2017 Appointment: Madeline Kennedy WPtel: [phone] [facility] (15 min) Moderate 08/27/2017 Patient [...] - 08/16/2017 Appointment: Melida Ha WPtel: [phone] [facility] [place] (30 min) Complex 08/16/2017 Patient Education: Patient Medication Summary Completed 08/16/2017 Patient Education: Obesity Completed 08/16/2017 Appointment: Madeline Kennedy WPtel: [phone] [facility] (30 min) Complex 08/07/2017 Visit Plan: [...] considered contagious. 07/26/2017 Appointment: Madeline Kennedy WPtel: [phone] [facility] [place] (15 min) Moderate 07/26/2017 Patient Education: Patient Medication Summary Completed 07/26/2017 Visit Plan: Cellulitis right foot-cultured today in the office- home health to reapply wound vac--appt with wound care on to evaluate for debridement- 07/03/2017 Appointment: Marcela Oshea WPtel: [phone] [phone] [place] (30 min) Complex 07/03/2017 Patient Education: Patient Medication Summary Completed 07/03/2017 Visit Plan: Abrasion left arm - Pt was instructed to keep the wound clean, wash with antibacterial soap, use triple antibiotic ointment, call if redness, pustular drainage, or any other acute concerns. 06/29/2017 Appointment: Marcela Oshea WPtel: [facility]5 [phone] (15 min) Moderate 06/29/2017 Patient Education: [...] Marcela Oshea WPtel: [facility] (15 min) Moderate 06/18/2017 Patient Education: [...] Marcela Oshea WPtel: [facility]0 [phone] (10 min) Simple 06/07/2017 Patient Education: [...] Marcela Oshea WPtel: [facility]5 [phone] (30 min) Complex 05/17/2017 Patient Education: [...] calamine as directed-call if you want blue miensh called into [facility]. 05/04/2017 Appointment: Marcela Oshea WPtel: [address] [place], [place] [phone] (30 min) Complex 05/04/2017 Patient Education: Patient [...] Marcela Oshea WPtel: [facility]9 [phone] (15 min) Moderate 03/15/2017 Patient Education: Patient Medication Summary Completed 03/15/2017 Appointment: Marcela Oshea WPtel: [facility]9 [phone] (30 min) Complex 03/12/2017 Visit Plan: [...] as discussed 02/16/2017 Appointment: Marcela Oshea WPtel: [address] [place] [address] (15 min) Moderate 02/16/2017 Patient Education: Patient [...] less controlled. 02/12/2017 Appointment: Marcela Oshea WPtel: [address] [place], [place] [phone] [place] [address] (30 min) Complex 02/12/2017 Patient Education: Patient Medication Summary Completed 02/12/2017 Appointment: Marcela Oshea WPtel: [address] [place], [place] [phone] [place] [address] (30 min) Complex 02/06/2017 Visit Plan: Diabetes [...] readings are starting to become less controlled. Qmbztvfwn-qmueucmc-iqgpxidt to monitor Generalized weakness-refer for PT-patient refuses today but will consider 02/05/2017 Appointment: Marcela Oshea WPtel: [facility]5 [phone] [place] (30 min) Complex 02/05/2017 Patient Education: Patient Medication Summary Completed 02/05/2017 Appointment: Marcela Oshea WPtel: [facility]5 [phone] [place] (30 min) Complex 01/30/2017 Visit Plan: Acute confusion-uncontrolled diabetes-chronically noncompliant with treatment and stopped his insulin several months ago-r/o stroke vs DKA-Dr Ha in to evaluate patient-plan to admit for further work up and treatment-patient's called and she transported him to the hospital 01/29/2017 Appointment: Marcela Oshea WPtel: [phone] [place] (30 min) Complex 01/29/2017 Patient Education: Patient Medication Summary Completed 01/29/2017 Patient Education: Obesity Completed 01/29/2017 Visit Plan: Right foot pain-MRI shows foreign body-appt with Dr Grewal for evaluation on Sunday. 10/13/2016 Appointment: Marcela Oshea WPtel: [phone] [place] (15 min) Moderate 10/13/2016 Patient Education: Patient Medication Summary Completed 10/13/2016 Appointment: Marcela Oshea WPtel: [address] [place], [place] [phone] [place] (30 min) Complex 10/12/2016 Visit Plan: Right foot anht-rpzakxkt-ghruq washer dropped on foot-xray negative but pain continues to increase-recommend MRI of foot for further evaluation-refer to wound care for lesions on right foot, patient has diabetes and history of osteomyelitis-culture obtained today-continue oral abx- follow up in the office on , sooner if needed 10/09/2016 Visit Plan: Right foot gvgd-msrupyrc-ciwqx washer dropped on foot-xray negative but pain continues to increase-recommend MRI of foot for further evaluation-refer to wound care for lesions on right foot, patient has diabetes and history of osteomyelitis-culture obtained today-continue oral abx- follow up in the office on , sooner if needed 10/09/2016 Visit Plan: Right foot ngbr-zeysysqa-dqhkm washer dropped on foot-xray negative but pain continues to increase-recommend MRI of foot for further evaluation-refer to wound care for lesions on right foot, patient has diabetes and history of osteomyelitis-culture obtained today-continue oral abx- follow up in the office on , sooner if needed 10/09/2016 Appointment: Marcela Oshea WPtel: [address] [place], [place] [phone] (30 min) Complex 10/09/2016 Patient Education: Patient Medication Summary Completed 10/09/2016 Visit Plan: Cellulitis - continue with oral antibiotics as previously directed, return to clinic as previously directed, call for acute change in symptoms, worsening redness, warmth, discharge. 10/06/2016 Appointment: Marcela Oshea WPtel: [address] [place], [place] [phone] (10 min) Simple 10/06/2016 Patient Education: Patient Medication Summary Completed 10/06/2016 Appointment: Marcela Oshea WPtel: [address] [place], [place] [phone] (30 min) Complex 08/24/2016 Referral: Sun Glynn Referral Completed 07/21/2016 Visit Plan: Low back pain- history of spinal fusion-patient for xray lumbar spine-RX sent to [facility] and instructed on use- topical voltaren samples provided and instructed on use. Ok to use tylenol as n eeded as well. The patient is to call the office if the pain is worsening or does not improve. Pressure ulcer left 4th toe-refer to Dr Glynn for evaluation 07/18/2016 Appointment: Marcela Oshea WPtel: [address] [place], [place] [phone] (30 min) Complex 07/18/2016 Patient Education: Patient Medication Summary Completed 07/18/2016 Patient Education: Obesity Completed 07/18/2016 Care Plan: Referral Order SNOMED-CT : [id number] Cancelled 07/18/2016 Visit Plan: Diabetes Mellitus - [...] control. 06/22/2016 Appointment: Marcela Oshea WPtel[phone] [phone] (30 min) Complex 06/22/2016 Patient [...] today 05/23/2016 Appointment: Marcela Oshea WPtel: [address] [phone] (30 min) Complex 05/23/2016 Patient [...] of plan. 05/15/2016 Appointment: Marcela Oshea WPtel: [phone] (15 min) Moderate 05/15/2016 Patient [...] Sun Glynn Referral Appointment Requested Instructions Comment HOLD COREG FOLLOW UP IN 2 WEEKS [...] -monitor symptoms and call with any concerns steroid shot today flonase and mucinex over [...] not improved, or if symptoms acutely worsen. TOUJEO 25 UNITS DAILY. NOTIFY CLINIC IF [...] are starting to become less controlled. . Poison Jana - pt is to use topical treatments as directed. Pt is cleanse clothing in hot water with soap, and call if symptoms do not improve or if they worsen. Kenalog injection today in the office-monitor blood sugars closely over the next 2-3 days-use calamine as directed-call if you want anai edge called into [facility]. Dr. Ha would like to send you for outpatient fluids today and to set you up with an event monitor that you wear for 30 days to make sure your heart is not doing any abnormal heart rhythms. She also wants you to follow up with your jig bore operator. Fatigue, malaise, no appetitie, dizziness, palpitations, near syncope - discussed with Dr. Ha - will send for IV fluids and set up an event monitor - pt is to notify clinic if symptoms do not improve, if they worsen, or with any changes, questions, or concerns. . Pneumonia, cough - recent diagnosis of Moraxella Cattharalis - with sensitivity to levaquin - will give 2 wks of levaquin since he had improvement but no full resolution of symptoms. REPEAT LABS BEFORE YOUR NEXT APPOINTMENT IN [...] spray in the nasal steroid allergy spray. PROTONIX 40MG DAILY CHECK LABS APPT WITH DR BRENNAN . Epigastric pain -start protonix daily- monitor symptoms Chest pain -work up negative done last week with Madeline-recommend appt with Dr Brennan Joint pain-check inflammation makers DM-check Hgb a1c . Diabetes Mellitus - I have recommended [...] improved, or if symptoms acutely worsen. . DM-weight loss-not checking blood sugars-patient sent for labs today HTN-low byhaw-qffryqv-yfzho labs Callus of foot and fissue of heel-refer to Dr Glynn for evaluation Esophageal Reflux - the patient has been counseled against excessive intake of caffeine, spicy foods, peppermint, and cinnamon - all of which can exacerbate esophageal reflux. The patient is to take medications as prescribed and call the office if the symptoms are not improving. . Hypertension - well controlled - continue [...] for fracture from injury . Right foot iqza-zquoyzbx-wcavq washer dropped on foot-xray negative but pain [...] for fracture from injury . Right foot rrzw-sscgcvyj-hvfrb washer dropped on foot-xray negative but pain continues to increase-recommend MRI of foot for further evaluation-refer to wound care for lesions on right foot, patient has diabetes and history of osteomyelitis- culture obtained today-continue oral abx-follow up in the office on , sooner if needed will check labs and EKG if it [...] voltaren gel ulcer left 4th toe-refer to pipe insulator helper . Low back pain- history of [...] toe-refer to Dr Glynn for evaluation . cough - improved - continue with inhalers - continue with symbicort - rx for proair for PRN use when pt is feelign short of breath with activity. continue oral antibiotic start using topical antibiotic ointment to scabbed areas and cover with dressing follow up , sooner if needed refer to wound care mri left foot due to increased pain -concern for fracture from injury . Right foot ypcq-ucsidixn-avkud washer dropped on foot-xray negative but pain continues to increase-recommend MRI of foot for further evaluation-refer to wound care for lesions on right foot, patient has diabetes and history of osteomyelitis- culture obtained today-continue oral abx-follow up in the office on , sooner if needed CHECK UA TODAY LABS HOLD A.M. DOSE OF COREG AND MONITOR SYMPTOMS . Orthostasis -decrease coreg -monitor symptoms and follow up in 10 days- sooner if needed Fatigue-check labs . Bilateral hip ijpk-uulwuese-tkkurmb IM injection administered today for c/o continued myalgia/arthralgia. Patient to start taking Meloxicam 15mg PO daily. Advised to return to clinic if symptoms do not improve. START CHECKING BLOOD SUGARS . Diabetes Mellitus [...] readings are starting to become less controlled. 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 HTN -heart rate not well controlled -decrease [...] allow for greater blood glucose control. Joint wjcd-byqyrgyq-movnuvt-symptoms have improved -stop meloxicam due to upset [...] weeks . Hypotension - discussed with Dr. Bernnan - he is in agreement to decrease [...] readings at home. Diabetes Mellitus -check labs Iwejcijk-kkrblxb-vtim bite-rx for doxycycline-follow up in 2 weeks [...]
[2019-04-24 14:58] LABS: EOSINOPHILS % (MANUAL) 2 %; LYMPHOCYTES % (MANUAL) 13 %; MONOCYTES % (MANUAL) 4 %; NEUTROPHILS % (MANUAL) 73 %; RBC MORPH NORMAL; REACTIVE LYMPHOCYTES 8 %
--- NOTE | 2019-04-24 15:25 | NUR ---
INITIAL VISIT WITH THE PT AND HIS , DADA. PT IS [employer]. OFFERED COMFORTING PRESENCE AND FACILITATED COMMUNICATION BETWEEN DADA AND THE STAFF SO SHE COULD REMAIN IN THE ROOM WITH THE PT.
[2019-04-24] MEDS ORDERED: ATOR80TA76 PO (15:31)
[2019-04-24] MEDS ORDERED: ISOS30TA3 PO (15:31)
[2019-04-24] MEDS ORDERED: NITR0.4T39 SL (15:31)
[2019-04-24] MEDS ORDERED: TICA90TA PO (15:31)
[2019-04-24] MEDS ORDERED: DULO30CA48 PO (15:31)
[2019-04-24] MEDS ORDERED: ASPI-983 PO (15:31)
--- NOTE | 2019-04-24 15:38 | NUR ---
SPOKE WITH THE PATIENT ABOUT HIS MEDICATIONS. WE WENT OVER THE EXT MED HX AND HE VERIFIED HOW HE TAKES THEM. HE TAKES 2 TYLENOL HS, ASPIRIN 81MG DAILY, AND A MTV DAILY OTC. HE STATES HE TAKES NITROGLYCERIN NEEDED AND HAS NOVOLOG HE USES WITH MEALS, ACCORDING TO THE EXT MED HX NOVOLOG WAS LAST FILLED 10-02-18. HE STATES HE IS NO LONGER TAKING THE FOLLOWING: VALSARTAN TOPAMAX METOPROLOL PROTONIX COREG
--- NOTE | 2019-04-24 17:09 | Consultation-Cardiology ---
HPI-Cardiology Cardiology Consultation: Date of Consultation 04/24/19 Time Seen by a Provider: 18:20 Date of Admission Attending Physician Melida Ha MD Admitting Physician Melida Ha MD Consulting Physician AYAKA PRINGLE MD, MA, FACP, FACC, FSCAI, CCDS Physician requesting consult: Dr Ha HPI: Chief Complaint: CC: Chest discomfort, malaise HPI 58 yo man who has had unremitting malaise and intermittent chest discomfort for many months. Chest discomfort in the lower midsternum/epigastrium, mod, pressure-like, sometimes radiating to the back, lasting up to several hours, w/o aggravating or relieving factors, associated with a feeling of gen malaise, occurring every day, sometimes several times a day. Has chronic exertional shortness of breath. No leg swelling or syncope. Does sometimes have a feeling of palp: sometimes repeating hard heart beats, sometimes a feeling of a rapid heart beat. Admitted through Dr Ha's office today where he had gone with the above symptoms Review of Systems-Cardiology Review of Systems Constitutional: As described under HPI Eyes: No vision change Ears/Nose/Throat: No ear discharge, No nasal drainage, No ulcerations Respiratory: As described under HPI Gastrointestinal: No diarrhea, No nausea, No vomiting Genitourinary: No dysuria, No hematuria, No urine frequency changes Musculoskeletal: No back pain, No joint pain Skin: No rash, No ulcerations Psychiatric/Neurological: No seizure, No focal weakness, No syncope Hematologic: No bleeding abnormalities MHX-Favrkb-Alfguf Hx Patient Social History Alcohol Use: Denies Use Recreational Drug Use: No 2nd Hand Smoke Exposure: No Hospitalization with Isolation: Denies Physical Abuse Screen: No Sexual Abuse: No Immunizations Up To Date Tetanus Booster (TDap): Unknown Date of Pneumonia Vaccine: Jan 02, 2011 Date of Influenza Vaccine: Aug 07, 2018 Past Medical History PMH As described under Assessment. Family Medical History Family History: Family history: Cardiovascular disease 19 FATHER Family history: Diabetes mellitus 19 MOTHER Allergies and Home Medications Allergies Coded Allergies: linezolid (Verified Allergy, Unknown, 05/28/18) Home Medications Acetaminophen 500 Mg Tablet, 1,000 MG PO HS, (Reported) TAKES 2 (500MG) TABLETS Aspirin 81 Mg Tablet.dr, 81 MG PO DAILY, (Reported) Atorvastatin Calcium 80 Mg Tablet, 80 MG PO DAILY, (Reported) Clonazepam 1 Mg Tablet, 2 MG PO HS, (Reported) TAKES 2 (1 MG) TABLETS Duloxetine HCl 30 Mg Capsule.dr, 30 MG PO DAILY, (Reported) Insulin Aspart 300 Units/3 Ml Solution, 10 UNITS SC TIDAC, (Reported) Insulin Degludec 200 Unit/1 Ml Insuln.pen, 50 UNITS SC DAILY, (Reported) Isosorbide Mononitrate 30 Mg Tab.er.24h, 30 MG PO DAILY, (Reported) Multivitamin 1 Each Tablet, 1 TAB PO DAILY, (Reported) Nitroglycerin 0.4 Mg Tab.subl, 0.4 MG SL UD PRN for CHEST PAIN, (Reported) Pregabalin 50 Mg Capsule, 50 MG PO HS, (Reported) Ticagrelor 90 Mg Tablet, 90 MG PO BID, (Reported) Patient Home Medication List Home Medication List Reviewed: Yes Physical Exam-Cardiology Physical Exam Vital Signs/I&O 04/24/19 04/24/19 04/24/19 04/24/19 14:30 15:00 15:29 16:00 Pulse 92 82 98 92 Resp 11 15 12 B/P (MAP) 97/80 (86) 86/72 (77) 99/73 (82) Pulse Ox 92 100 100 O2 Delivery Room Air Room Air Room Air 04/24/19 04/24/19 17:00 18:00 Pulse 89 84 Resp 12 12 B/P (MAP) 89/68 (75) 120/79 (93) Pulse Ox 100 100 O2 Delivery Room Air Room Air Capillary Refill : Constitutional: AAO x 3, well-developed, well-nourished HEENT: EOMI, hearing is well preserved; No xanthelasmas are seen Neck: carotid pulses are 2 + bilaterally, with good upstrokes Respiratory: No accessory muscle use; lungs clear to percussion, lungs clear to auscultation Cardiovascular: regular rate-rhythm, S1 and S2, systolic murmur (soft LILIAN at card base) Gastrointestinal: No tender; soft; No guarding, No rebound; audible bowel sounds Extremities: No clubbing, No cyanosis, No significant edema Neurologic/Psychiatric: oriented x 3, grossly intact, power is 5/5 both on sides Skin: No rash on exposed areas, No ulcerations on exposed areas Data Review Labs Laboratory Tests 04/24/19 14:20: White Blood Count 8.3, Red Blood Count 5.02, Hemoglobin 15.0, Hematocrit 43, Mean Corpuscular Volume 86, Mean Corpuscular Hemoglobin 30, Mean Corpuscular Hemoglobin Concent 35, Red Cell Distribution Width 14.3, Platelet Count 185, Mean Platelet Volume 10.7H, Neutrophils (%) (Auto) 65, Lymphocytes (%) (Auto) 25, Monocytes (%) (Auto) 9, Eosinophils (%) (Auto) 1, Basophils (%) (Auto) 0, Neutrophils # (Auto) 5.4, Lymphocytes # (Auto) 2.1, Monocytes # (Auto) 0.8, Eosinophils # (Auto) 0.1, Basophils # (Auto) 0.0, Neutrophils % (Manual) 73, Lymphocytes % (Manual) 13, Monocytes % (Manual) 4, Eosinophils % (Manual) 2, Re active Lymphocytes 8, Blood Morphology Comment NORMAL, Sodium Level 137, Potassium Level 4.8, Chloride Level 102, Carbon Dioxide Level 21, Anion Gap 14, Blood Urea Nitrogen 22H, Creatinine 1.50H, Estimat Glomerular Filtration Rate 48, BUN/Creatinine Ratio 15, Glucose Level 202H, Calcium Level 10.3H, Corrected Calcium 10.1, Total Bilirubin 1.9H, Aspartate Amino Transf (AST/SGOT) 35H, Alanine Aminotransferase (ALT/SGPT) 48, Alkaline Phosphatase 97, Troponin I 0 .039H, Total Protein 7.6, Albumin 4.2, Thyroid Stimulating Hormone (TSH) 1.33 04/24/19 17:26: Glucometer 153H Laboratory Tests 04/24/19 14:20 A/P-Cardiology Assessment/Admission Diagnosis Chest pain, suggestive of continuing, intermittent angina pectoris CAD. 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 He agrees. Plan for tomorrow (or earlier, if needed) * I discussed his case with Dr Ha * PPI and Mylanta for suspected GERD Clinical Quality Measures DVT/VTE Risk/Contraindication: Risk Factor Score Per Nursin RFS Level Per Nursing on Admit: 2=Moderate AYAKA PRINGLE MD FACP FAC CCDS Apr 24, 2019 17:09
[2019-04-24] MEDS ORDERED: morphine INJ 4 MG/ML 1 ML (VIAL/SYRINGE) ONE (17:16)
[2019-04-24] MEDS: morphine INJ 4 MG/ML 1 ML (VIAL/SYRINGE) IVP PRN ×2 (17:22→17:52)
[2019-04-24] MEDS: inSUlin ASPART (NovoLOG) 1 UNIT/0.01 ML (CHARGE PER UNIT) SC SCH ×2 (17:26→22:21)
[2019-04-24] MEDS ORDERED: ANTACID SUSP 30 ML UDC (MYLANTA) ONE (18:06)
[2019-04-24] MEDS ORDERED: fentaNYL INJECTION 100 MCG/2 ML AMP ONE (18:06)
[2019-04-24] MEDS: ANTACID SUSP 30 ML UDC (MYLANTA) PO SCH ×2 (18:12→20:37)
[2019-04-24] MEDS: fentaNYL INJECTION 100 MCG/2 ML AMP IVP PRN ×2 (18:12→20:38)
[2019-04-24] MEDS ORDERED: PANTOPRAZOLE 40 MG (PROTONIX) VIAL IV NR (18:15)
--- NOTE | 2019-04-24 18:38 | History & Physicial ---
History of Present Illness History of Present Illness Reason for visit/HPI LUIS IS A 58 Y/O MALE WHO IS WELL KNOWN TO ME FROM CLINIC. LUIS HAS A HISTORY OF CORONARY ARTERY DISEASE - HE WAS ADMITTED TO [facility] IN MAY OF LAST YEAR - HAD SOME STENTING, WAS PROGRESSIVELY DECLINING WITH FEVERS AND PERSISTENT CHEST PAIN, DR. RANKIN THEN TRANSFERRED LUIS TO [facility] IN [facility] WHERE HE HAD FURTHER STENTS AND IV ANTIBIOTICS FOR AN INFECTED FOOT FOR WHICH HE HAD FURTHER SURGICAL INTERVENTION. LUIS STATES THAT FOR A SHORT TIME HE FELT MUCH BETTER AND WAS DOING GREAT THEN HE STARTED TO FEEL BAD AGAIN - HE HAS SINCE BEEN HOSPITALIZED 5 TIMES - JUNE, OCTOBER, DECEMBER, MARCH, APRIL AND AGAIN TODAY - ALL WITH CHEST PAIN RELATED PROBLEMS. HE HAD A HEART CATHETERIZATION IN DECEMBER WHICH SHOWED PATENT STENTS AND OTHER CHRONIC DISEASE THAT WAS NOT AMENABLE TO STENTING. HE PRESENTED TO THE OFFICE TODAY WITH TACHYCARDIA - WITH HEART RATE RANGING FROM 113 - 200 AND HYPOTENSION WITH BP IN THE LOW 90/50'S, SWEATING AND COMPLAINING OF CHEST PAIN. HE WAS DIRECTLY ADMITTED TO THE HOSPITAL FOR FURTHER WORK-UP AND CARDIAC CONSULTATION. Date of Admission Apr 24, 2019 at 13:39 Date Seen by a Provider: Apr 24, 2019 Time Seen by a Provider: 13:00 I consulted on this patient on 04/24/19 1300 Attending Physician Rosa Maria Ha MD Admitting Physician Rosa Maria Ha MD Consult DR. PRINGLE - S[facility] SAW[facility]ER Allergies and Home Medications Allergies Coded Allergies: linezolid (Verified Allergy, Unknown, 05/28/18) Home Medications Acetaminophen 500 Mg Tablet, 1,000 MG PO HS, (Reported) TAKES 2 (500MG) TABLETS Aspirin 81 Mg Tablet.dr, 81 MG PO DAILY, (Reported) Atorvastatin Calcium 80 Mg Tablet, 80 MG PO DAILY, (Reported) Clonazepam 1 Mg Tablet, 2 MG PO HS, (Reported) TAKES 2 (1 MG) TABLETS Duloxetine HCl 30 Mg Capsule.dr, 30 MG PO DAILY, (Reported) Insulin Aspart 300 Units/3 Ml Solution, 10 UNITS SC TIDAC, (Reported) Insulin Degludec 200 Unit/1 Ml Insuln.pen, 50 UNITS SC DAILY, (Reported) Isosorbide Mononitrate 30 Mg Tab.er.24h, 30 MG PO DAILY, (Reported) Multivitamin 1 Each Tablet, 1 TAB PO DAILY, (Reported) Nitroglycerin 0.4 Mg Tab.subl, 0.4 MG SL UD PRN for CHEST PAIN, (Reported) Pregabalin 50 Mg Capsule, 50 MG PO HS, (Reported) Ticagrelor 90 Mg Tablet, 90 MG PO BID, (Reported) Patient Home Medication List Home Medication List Reviewed: Yes Past Vkxrooq-Fzjrku-Hrvtqz Hx Patient Social History Marrital Status: Number of Children: 3 Number of living children: 3 Living Status: LIVES WITH AT THEIR HOME 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 Alcohol Use: Denies Use Recreational Drug Use: No 2nd Hand Smoke Exposure: No Physical Abuse Screen: No Sexual Abuse: No Recent Foreign Travel: No Contact w/other who traveled: No Recent Hopitalizations: Yes (JANUARY 2019 HEART STENT) Recent Infectious Disease Expo: No 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 Immunizations Up To Date Tetanus Booster (TDap): Unknown Pediatric: No Date of Pneumonia Vaccine: Jan 02, 2011 Date of Influenza Vaccine: Aug 07, 2018 Seasonal Allergies Seasonal Allergies: No Surgeries Yes (ACL; Wrist; Heart stents) Abdominal, Amputation, Appendectomy, Gallbladder, Orthopedic, Tonsillectomy Respiratory No Currently Using CPAP: No Currently Using BIPAP: No Cardiovascular Yes (Heart stents) Coronary Artery Disease, Heart Attack, High Cholesterol, Hypertension Neurological Yes Neuropathy, Stroke Reproductive System Hx Reproductive Disorders: No Sexually Transmitted Disease: No HIV/AIDS: No Genitourinary No Kidney Stones Gastrointestinal Yes Abdominal Hernia Musculoskeletal Yes (OSTEOMYELITIS WITH MULTIPLE TOE AMPUTATIONS, BACK FUSION X3) Degenerate Disk Disease, Arthritis, Chronic Back Pain Endocrine History of Endocrine Disorders: Yes Endocrine Disorders: Diabetes, Insulin dep HEENT History of HEENT Disorders: No Loss of Vision: Denies Hearing Impairment: Denies Cancer No Psychosocial History of Psychiatric Problem: Yes Behavioral Health Disorders: Anxiety, Depression Integumentary History of Skin or Integumenta: No Blood Transfusions History of Blood Disorders: No Adverse Reaction to a Blood Tr: No Reviewed Nursing Assessment Reviewed/Agree w Nursing PMH: Yes Family Medical History Significant Family History: Heart Disease, COPD, Diabetes, Hypertension, Psychiatric Problems, Renal Disease, Vascular Disease Family Hx: Family history: Cardiovascular disease 19 FATHER Family history: Diabetes mellitus 19 MOTHER Review of Systems Constitutional: No chills, No fever; malaise, weakness EENTM: No hoarseness, No throat pain Respiratory: No cough, No dyspnea on exertion; short of breath Cardiovascular: chest pain; No edema; Hx of Intervention; No palpitations Gastrointestinal: No abdominal pain, No constipation, No diarrhea, No loss of appetite Genitourinary: no symptoms reported Musculoskeletal: No back pain, No muscle weakness Skin: no symptoms reported Psychiatric/Neurological: Anxiety, Depressed, Weakness All Other Systems Reviewed Negative Unless Noted: Yes Physical Exam Vital Signs Vital Signs - First Documented 04/24/19 14:30 Pulse 92 Resp 11 B/P (MAP) 97/80 (86) Pulse Ox 92 O2 Delivery Room Air Capillary Refill : Height, Weight, BMI Height: 6'2.00" Weight: 224lbs. 7.0oz. [id number]; 28.8 BMI Method:Stated General Appearance: No Apparent Distress, WD/WN Eyes: Bilateral Eye Normal Inspection, Bilateral Eye PERRL, Bilateral Eye EOMI HEENT: PERRL/EOMI, Pharynx Normal Neck: Full Range of Motion, Normal Inspection, Non Tender, Supple Respiratory: Chest Non Tender, Lungs Clear, Normal Breath Sounds, No Accessory Muscle Use, No Respiratory Distress Cardiovascular: Regular Rate, Rhythm, No Edema Gastrointestinal: Normal Bowel Sounds, No Organomegaly, No Pulsatile Mass, Non Tender, Soft Rectal: Deferred Extremity: Normal Capillary Refill, No Pedal Edema, Other (LOWER EXTREMITY BILATERAL AMPUTATION FOREFOOT BILATERALLY) Neurologic/Psychiatric: Alert, Oriented x3, 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 PRINGLE - DEFER TO HIS TREATMENT PLAN - HE HAS INDICATED THAT HE PLANS ON GETTING LUIS SET UP FOR A HEART CATHETERIZATION TOMORROW MORNING. - HOLD ANTICOAGULATION TONIGHT, STOP NITRO, STOP IMDUR DIABETES MELLITUS - PT IS NOT COMPLIANT WITH HIS MEDICATIONS - HIS INDICATES THAT LUIS WILL NOT EAT AND THEN HOLD HIS MEDICATIONS AND THEN EAT A LOT AND ADJUST HIS INSULIN HE SEES FIT - IN THE PAST HE WAS EXTREMELY NONCOMPLIANT NOT TAKING HIS INSULIN - THUS THE SITUATION THAT HE HAS FOUND HIMSELF IN WITH BILATERAL LOWER EXTREMITY AMPUTATIONS AND SEVERE CAD AUGMENTED BY HIS UNCONTROLLED DM. DEPRESSION AND ANXIETY - HIS IS CONVINCED THAT LUIS HAS BIPOLAR MOOD DISORDER, BUT I HAVE BEEN UNSUCCESSFUL AT GETTING LUIS TO AGREE TO SEE A PSYCHIATRIST WELL NOT BEING SUCCESSFUL AT GETTING HIM TO CONSISTENTLY TAKE MEDICATIONS DIRECTED, INCLUDING ANY ANTIDEPRESSANT MEDICATIONS. HE DOES, HOWEVER TAKE HIS CLONAZEPAM ON A REGULAR BASIS. WE WILL THEREFORE CONTINUE WITH THIS ON HIS ADMISSION. HYPERLIPIDEMIA - CONTINUE WITH STATIN. PERIPHERAL VASCULAR DISEASE - SUPPORTIVE CARE. GERD - START MYLANTA AND PPI. APPRECIATE CARDIOLOGY ASSISTANCE WITH THIS PATIENT. Admission Diagnosis CHEST PAIN HYPOTENSION TACHYCARDIA CORONARY ARTERY DISEASE DIABETES MELLITUS DEPRESSION ANXIETY HYPERLIPIDEMIA PERIPHERAL VASCULAR DISEASE Admission Status: Inpatient Order (span 2 midnights) Reason for Inpatient Admission: INPT FOR HEART RATE CONTROL, CONTROL OF SYMPTOMS OF CHEST PAIN, MEDICATION ADJUSTMENT Clinical Quality Measures DVT/VTE Risk/Contraindication: Risk Factor Score Per Nursin RFS Level Per Nursing on Admit: 2=Moderate ROSA MARIA HA MD Apr 24, 2019 18:37
[2019-04-24] MEDS ORDERED: ASPIRIN 81 MG CHEW (CHILDREN'S ASA) PO NR (19:30)
[2019-04-24] MEDS: clonazePAM 1 MG (KlonoPIN) TAB PO SCH (20:36)
[2019-04-24] MEDS: ACETAMINOPHEN 500 MG TAB (TYLENOL) PO SCH (20:37)
[2019-04-24] MEDS: PREGABALIN 50 MG (LYRICA) CAP PO SCH (20:37)
[2019-04-24] MEDS ORDERED: NON-FORMULARY MEDICATION 1 EA EA (Acetaminophen (Tylenol Extra Strength) 1,000 MG) PO SCH (21:00)
[2019-04-24] MEDS ORDERED: NON-FORMULARY MEDICATION 1 EA EA (Clonazepam 2 MG) PO SCH (21:00)
[2019-04-24] MEDS ORDERED: TICAGRELOR 90 MG TABLET (BRILINTA) PO SCH (21:00)
[2019-04-24] MEDS ORDERED: NON-FORMULARY MEDICATION 1 EA EA (Pregabalin (Lyrica) 50 MG) PO SCH (21:00)
[2019-04-25] VITALS (22 sets, daily range): BP systolic 108–143; BP diastolic 63–89
[2019-04-25] MEDS: fentaNYL INJECTION 100 MCG/2 ML AMP IVP PRN ×2 (00:41→08:08)
[2019-04-25] MEDS: NS IV 1000 ML 1,000 ML IV SCH ×5 (00:42→21:07)
[2019-04-25] MEDS: ANTACID SUSP 30 ML UDC (MYLANTA) PO SCH ×4 (01:32→20:56)
[2019-04-25 03:30] LABS: BASOPHILS % (AUTO) 0 % (0-10); EOSINOPHILS # (AUTO) 0.1 10^3/uL (0.0-0.3); EOSINOPHILS % (AUTO) 2 % (0-10); HEMATOCRIT 43 % (40-54); HEMOGLOBIN 14.7 G/DL (13.3-17.7); LYMPHOCYTES # (AUTO) 3.3 X 10^3 (1.0-4.0); LYMPHOCYTES % (AUTO) 41 % (12-44); MEAN CORPUSCULAR HEMOGLOBIN 30 PG (25-34); MEAN CORPUSCULAR HGB CONC 34 G/DL (32-36); MEAN CORPUSCULAR VOLUME 88 FL (80-99); MONOCYTES # (AUTO) 0.7 X 10^3 (0.0-1.0); MONOCYTES % (AUTO) 9 % (0-12); NEUTROPHILS % (AUTO) 49 % (42-75); PLATELET COUNT 154 10^3/uL (130-400); RED CELL DISTRIBUTION WIDTH 14.3 % (10.0-14.5); WHITE BLOOD COUNT 8.2 10^3/uL (4.3-11.0)
[2019-04-25 03:48] LABS: CALCIUM 9.2 MG/DL (8.5-10.1); CREATININE SERUM 1.44 MG/DL (0.60-1.30); MAGNESIUM 2.3 MG/DL (1.8-2.4); PHOSPHORUS 3.5 MG/DL (2.3-4.7); POTASSIUM 4.6 MMOL/L (3.6-5.0)
[2019-04-25] MEDS: POTASSIUM CL 10MEQ/50ML IVPB 50 ML IV SCH (04:59)
[2019-04-25] MEDS: inSUlin ASPART (NovoLOG) 1 UNIT/0.01 ML (CHARGE PER UNIT) SC SCH ×7 (05:00→20:57)
[2019-04-25] MEDS: KCL 20 MEQ TAB (K-DUR) PO SCH (05:00)
[2019-04-25] MEDS: MAGNESIUM 1 GM/100 ML IVPB 100 ML IV SCH (05:00)
[2019-04-25] MEDS ORDERED: NON-FORMULARY MEDICATION 1 EA EA (Insulin Aspart (Novolog Flexpen) 10 UNITS) SC SCH (06:00)
[2019-04-25] MEDS ORDERED: HEParin (CATH LAB) 2,000 ML IV ONE (06:45)
[2019-04-25] MEDS ORDERED: LIDOCAINE 1% INJ 20 ML 20 ML VIAL ONE (06:45)
[2019-04-25] MEDS ORDERED: MIDAZOLAM 5 MG/5 ML (VERSED) VIAL ONE (08:19)
[2019-04-25] MEDS ORDERED: fentaNYL INJECTION 100 MCG/2 ML AMP ONE (08:19)
--- NOTE | 2019-04-25 08:20 | Diagnostic Imaging Report ---
Indication: Chest pain and tachycardia. Time of exam: 3:24 AM Correlation is made with prior study from 04/08/2019. Heart size is stable. Lungs are clear. Pulmonary vascularity is normal. No infiltrate, effusion or pneumothorax is seen. Impression: No acute cardiopulmonary process is detected. Dictated by: Dictated on workstation # [id number]
--- NOTE | 2019-04-25 08:20 | NUR ---
PT LEAVING UNIT VIA BED ACCOMPANIED BY DEPARTMENT STORE SALESPERSON STAFF. WILL WAIT FOR PT TO RETURN TO UNIT.
[2019-04-25] MEDS ORDERED: NS IV 1000 ML 1,000 ML ONE (08:21)
[2019-04-25] MEDS ORDERED: DULoxetine 30 MG (CYMBALTA) CAP PO SCH (09:00)
--- NOTE | 2019-04-25 09:22 | Cardiac Procedure Note-CS/ASA ---
Pre-Procedure Note Pre-Op Procedure Note H&P Reviewed The H&P was reviewed, patient examined and no changes noted. Date H&P Reviewed: Apr 25, 2019 Time H&P Reviewed: 08:35 Conscious Sedation Pre-Proced Time 08:35 ASA Score 3 For ASA 3 and 4: Consider anesthesia and medical clearance. Also, for patients with a history of failed moderate sedation consider anesthesia. Airway Lungs Heart ASA score ASA 1: a normal healthy patient ASA 2: a patient with a mild systemic disease (mid diabetes, controlled hypertension, obesity ASA 3: a patient with a severe systemic disease that limits activity (angina, COPD, prior Myocardial infarction) ASA 4: a patient with an incapacitating disease that is a constant threat to life (CHF, renal failure) ASA 5: a moribund patient not expected to survive 24 hrs. (ruptured aneurysm) ASA 6: a declared brain- patient whose organs are being harvested. For emergent operations, add the letter E after the classification Mallampati Classification Grade 2 Sedation Plan Analgesia, Amnesia, Plan communicated to team members, Discussed options with patient/fam, Discussed risks with patient/fam The patient is an appropriate candidate to undergo the planned procedure, sedation, and anesthesia. The patient immediately re-assessed prior to indication. AYAKA PRINGLE MD FACP FAC CCDS Apr 25, 2019 09:22
--- NOTE | 2019-04-25 09:22 | Progress Note ---
Subjective Date Seen by a Provider: Apr 25, 2019 Time Seen by a Provider: 09:30 Subjective/Events-last exam PT REPORTS THAT HE IS STILL HAVING INTERMITTENT CHEST PAIN - HE STATES THAT HE DOES NOT HAVE ANY ABDOMINAL PAIN, NAUSEA. HE DOES ADMIT TO DEPRESSION/ANXIETY. Review of Systems General: No Chills; Fatigue Pulmonary: No Dyspnea, No Cough Cardiovascular: Chest Pain Gastrointestinal: No: Nausea, Abdominal Pain Neurological: No: Weakness, Confusion Objective Exam Last Set of Vital Signs Vital Signs Date Time Temp Pulse Resp B/P (MAP) Pulse Ox O2 Delivery O2 Flow Rate FiO2 04/25/19 08:00 95 Room Air 04/25/19 08:00 96.2 72 16 143/86 (105) 04/25/19 07:00 2.00 Capillary Refill : I&O Intake and Output 04/25/19 00:00 Intake Total 300 ml Output Total 0 ml Balance 300 ml Intake Oral 300 ml Output Urine Total 0 ml Daily Weight Change No General: Alert, Oriented X3, Cooperative, No Acute Distress HEENT: Atraumatic, PERRLA, Mucous Memb Moist/[place] Neck: Supple Lungs: Clear to Auscultation, Normal Air Movement Heart: Regular Rate Abdomen: Normal Bowel Sounds, Soft, No Tenderness Extremities: No Clubbing, No Cyanosis Neuro: Cranial Nerves 3-12 NL Psych/Mental Status: Mental Status NL, Mood NL Results Lab Laboratory Tests 04/24/19 14:20: White Blood Count 8.3, Red Blood Count 5.02, Hemoglobin 15.0, Hematocrit 43, Mean Corpuscular Volume 86, Mean Corpuscular Hemoglobin 30, Mean Corpuscular Hemoglobin Concent 35, Red Cell Distribution Width 14.3, Platelet Count 185, Mean Platelet Volume 10.7H, Neutrophils (%) (Auto) 65, Lymphocytes (%) (Auto) 25, Monocytes (%) (Auto) 9, Eosinophils (%) (Auto) 1, Basophils (%) (Auto) 0, Neutrophils # (Auto) 5.4, Lymphocytes # (Auto) 2.1, Monocytes # (Auto) 0.8, Eosinophils # (Auto) 0.1, Basophils # (Auto) 0.0, Neutrophils % (Manual) 73, Lymphocytes % (Manual) 13, Monocytes % (Manual) 4, Eosinophils % (Manual) 2, Reactive Lymphocytes 8, Blood Morphology Comment NORMAL, Sodium Level 137, Potassium Level 4.8, Chloride Level 102, Carbon Dioxide Level 21, Anion Gap 14, Blood Urea Nitrogen 22H, Creatinine 1.50H, Estimat Glomerular Filtration Rate 48, BUN/Creatinine Ratio 15, Glucose Level 202H, Calcium Level 10.3H, Corrected Calcium 10.1, Total Bilirubin 1.9H, Aspartate Amino Transf (AST/SGOT) 35H, Alanine Aminotransferase (ALT/SGPT) 48, Alkaline Phosphatase 97, Troponin I 0.0 39H, Total Protein 7.6, Albumin 4.2, Thyroid Stimulating Hormone (TSH) 1.33 04/24/19 17:26: Glucometer 153H 04/24/19 20:04: Troponin I 0.052H 04/24/19 22:19: Glucometer 158H 04/25/19 03:15: White Blood Count 8.2, Red Blood Count 4.83, Hemoglobin 14.7, Hematocrit 43, Mean Corpuscular Volume 88, Mean Corpuscular Hemoglobin 30, Mean Corpuscular Hemoglobin Concent 34, Red Cell Distribution Width 14.3, Platelet Count 154, Mean Platelet Volume 11.0H, Neutrophils (%) (Auto) 49, Lymphocytes (%) (Auto) 41, Monocytes (%) (Auto) 9, Eosinophils (%) (Auto) 2, Basophils (%) (Auto) 0, Neutrophils # (Auto) 4.0, Lymphocytes # (Auto) 3.3, Monocytes # (Auto) 0.7, Eosinophils # (Auto) 0.1, Basophils # (Auto) 0.0, Sodium Level 138, Potassium Level 4.6, Chloride Level 104, Carbon Dioxide Level 22, Anion Gap 12, Blood Urea Nitrogen 24H, Creatinine 1.44H, Estimat Glomerular Filtration Rate 51, BUN/Creatinine Ratio 17, Glucose Level 167H, Calcium Level 9.2, Phosphorus Level 3.5, Magnesium Level 2.3 Assessment/Plan Assessment/Plan Assess & Plan/Chief Complaint CHEST PAIN HYPOTENSION TACHYCARDIA CORONARY ARTERY DISEASE DIABETES MELLITUS DEPRESSION ANXIETY HYPERLIPIDEMIA PERIPHERAL VASCULAR DISEASE CHEST PAIN WITH HYPOTENSION AND TACHYCARDIA WITH HISTORY OF CAD - DISCUSSED WITH DR. PRINGLE - DEFER TO HIS TREATMENT PLAN -PER VERBAL REPORT THIS MORNING, LUIS HAS PATENT STENTS IN LAD, RIGHT CIRC, AND RIGHT CORONARY WITH CHRONICALLY OBSTRUCTED OM. - DR. PRINGLE HAS INDICATED THAT HE WILL ADJUST LUIS'S MEDICATIONS WITH HIS LOW BLOOD PRESSURE IN MIND AND HE MAY START A LOW DOSE AZEB-I OR ARB WELL INITIATING RANEXA FOR LUIS'S CHRONIC ANGINAL SYMPTOMS. HE HAS STATED THAT HE THINKS THAT HE SHOULD KEEP LUIS IN THE HOSPITAL FOR A FEW DAYS FOR THOSE MEDICATION ADJUSTMENTS TO ASSURE THAT HE DOES NOT HAVE A SEVERE LOWERING OF HIS BLOOD PRESSURE ON THESE MEDICATIONS. - IF LUIS IS SO DESIRING, WE MAY CONSIDER AN OUTSIDE HEALTHCARE MANAGEMENT CONSULTANT FOR CONFIRMATION OF HIS CHRONIC CORONARY DISEASE THAT THUS FAR HAS NOT BEEN AMENABLE TO TREATMENT/STENTING IF THE RANEXA OR OTHER CHANGES DO NOT IMPROVE HIS SYMPTOMS. DIABETES MELLITUS - PT IS NOT COMPLIANT WITH HIS MEDICATIONS - HIS INDICATES THAT LUIS WILL NOT EAT AND THEN HOLD HIS MEDICATIONS AND THEN EAT A LOT AND ADJUST HIS INSULIN HE SEES FIT - IN THE PAST HE WAS EXTREMELY NONCOMPLIANT ABOUT TAKING HIS INSULIN - THUS THE SITUATION THAT HE HAS FOUND HIMSELF IN WITH BILATERAL LOWER EXTREMITY AMPUTATIONS AND SEVERE CAD AUGMENTED BY HIS UNCONTROLLED DM. I WILL RESTART SLIDING SCALE INSULIN AND ADD BACK THE LONG ACTING INSULIN IN SMALL AMOUNTS TO ADJUST FOR HIS DIETARY INTAKE AND FSBS READINGS. DEPRESSION AND ANXIETY - HIS IS CONVINCED THAT LUIS HAS BIPOLAR MOOD DISORDER, BUT I HAVE BEEN UNSUCCESSFUL AT GETTING LUIS TO AGREE TO SEE A PSYCHIATRIST WELL NOT BEING SUCCESSFUL AT GETTING HIM TO CONSISTENTLY TAKE MEDICATIONS DIRECTED, INCLUDING ANY ANTIDEPRESSANT MEDICATIONS. HE DOES, HOWEVER TAKE HIS CLONAZEPAM ON A REGULAR BASIS. WE WILL THEREFORE CONTINUE WITH THIS ON HIS ADMISSION. I HAVE ADDED CYMBALTA 30MG TWICE DAILY, WE MAY NEED TO THINK ABOUT A MEDICATION LIKE VRAYLAR FOR LUIS. HYPERLIPIDEMIA - CONTINUE WITH STATIN. PERIPHERAL VASCULAR DISEASE - SUPPORTIVE CARE. GERD - STARTED MYLANTA AND PPI. APPRECIATE CARDIOLOGY ASSISTANCE WITH THIS PATIENT. Clinical Quality Measures Admission Status Admission Dx CHEST PAIN HYPOTENSION TACHYCARDIA CORONARY ARTERY DISEASE DIABETES MELLITUS DEPRESSION ANXIETY HYPERLIPIDEMIA PERIPHERAL VASCULAR DISEASE DVT/VTE Risk/Contraindication: Risk Factor Score Per Nursin RFS Level Per Nursing on Admit: 2=Moderate ROSA MARIA PRADO MD Apr 25, 2019 09:22
[2019-04-25] MEDS ORDERED: PATIENT MAY USE OWN MEDS, ALL PO SCH (09:30)
[2019-04-25] MEDS ORDERED: ENALAPRIL 2.5 MG (VASOTEC) TAB PO NR (09:30)
[2019-04-25] MEDS ORDERED: CARVEDILOL 3.125 MG (COREG) TABLET PO NR (09:30)
[2019-04-25] MEDS ORDERED: RANOLAZINE ER 500 MG TAB (RANEXA) PO NR (09:30)
[2019-04-25] MEDS ORDERED: CLOPIDOGREL 75 MG (PLAVIX) TABLET PO NR (09:30)
--- NOTE | 2019-04-25 09:35 | NUR ---
PT BACK TO ROOM ACCOMPANIED BY ADDRESSER STAFF. PT CONNECTED TO BEDSIDE MONITOR. RIGHT GROIN SITE CHECKED. DRSG DRY AND INTACT, SITE SOFT, NO DRAINAGE NOTED. PT INSTRUCTED TO LAY FLAT, CALL LIGHT WITHIN REACH. WILL CONTINUE TO MONITOR.
--- NOTE | 2019-04-25 09:47 | Progress Note-Cardiology ---
Cardiology SOAP Progress Note Subjective: Persistent gen malaise and nonspecific chest and gen body discomfort. Some shortness of breath. Some feeling of palpitations. No N/V Objective: I&O/Vital Signs 04/24/19 04/24/19 04/24/19 04/25/19 22:00 23:00 23:38 00:00 Pulse 77 76 72 67 Resp 11 13 11 17 B/P (MAP) 100/70 (80) 100/74 (83) 112/72 (85) Pulse Ox 93 95 89 96 O2 Delivery Room Air Room Air Nasal Cannula Nasal Cannula O2 Flow Rate 2.00 2.00 04/25/19 04/25/19 04/25/19 04/25/19 00:00 01:00 01:00 02:00 Pulse 76 43 68 Resp 24 14 B/P (MAP) 117/77 (90) 113/76 (88) Pulse Ox 93 95 94 O2 Delivery Nasal Cannula Nasal Cannula Nasal Cannula O2 Flow Rate 2.00 2.00 2.00 04/25/19 04/25/19 04/25/19 04/25/19 03:00 04:00 04:00 05:00 Pulse 69 71 65 Resp 17 13 16 B/P (MAP) 137/63 (87) 111/79 (90) 108/74 (85) Pulse Ox 98 96 94 90 O2 Delivery Nasal Cannula Nasal Cannula Room Air Nasal Cannula O2 Flow Rate 2.00 2.00 2.00 04/25/19 04/25/19 04/25/19 04/25/19 06:00 07:00 07:00 08:00 Temp 96.2 Pulse 66 69 71 72 Resp 14 7 16 B/P (MAP) 119/80 (93) 128/80 (96) 143/86 (105) Pulse Ox 94 99 95 O2 Delivery Nasal Cannula Nasal Cannula Room Air O2 Flow Rate 2.00 2.00 04/25/19 08:00 Pulse Ox 95 O2 Delivery Room Air 04/25/19 00:00 Intake Total 300 ml Output Total 0 ml Balance 300 ml Weight (Pounds): 224 Weight (Ounces): 7.0 Weight (Calculated Kilograms): 101.100104 Constitutional: AAO x 3, well-developed, well-nourished Respiratory: No accessory muscle use; lungs clear to percussion, lungs clear to auscultation Cardiovascular: regular rate-rhythm, S1 and S2, systolic murmur (soft LILIAN at card base) Gastrointestional: No tender; soft; No guarding, No rebound; audible bowel so unds Extremities: No clubbing, No cyanosis, No significant edema Neurologic/Psychiatric: oriented x 3, grossly intact, power is 5/5 both on sides Skin: No rash on exposed areas, No ulcerations on exposed areas Results/Procedures: Labs Laboratory Tests 04/24/19 14:20: White Blood Count 8.3, Red Blood Count 5.02, Hemoglobin 15.0, Hematocrit 43, Mean Corpuscular Volume 86, Mean Corpuscular Hemoglobin 30, Mean Corpuscular Hemoglobin Concent 35, Red Cell Distribution Width 14.3, Platelet Count 185, Mean Platelet Volume 10.7H, Neutrophils (%) (Auto) 65, Lymphocytes (%) (Auto) 25, Monocytes (%) (Auto) 9, Eosinophils (%) (Auto) 1, Basophils (%) (Auto) 0, Neutrophils # (Auto) 5.4, Lymphocytes # (Auto) 2.1, Monocytes # (Auto) 0.8, Eosinophils # (Auto) 0.1, Basophils # (Auto) 0.0, Neutrophils % (Manual) 73, Lymphocytes % (Manual) 13, Monocytes % (Manual) 4, Eosinophils % (Manual) 2, Reactive Lymphocytes 8, Blood Morphology Comment NORMAL, Sodium Level 137, Potassium Level 4.8, Chloride Level 102, Carbon Dioxide Level 21, Anion Gap 14, Blood Urea Nitrogen 22H, Creatinine 1.50H, Estimat Glomerular Filtration Rate 48, BUN/Creatinine Ratio 15, Glucose Level 202H, Calcium Level 10.3H, Corrected Calcium 10.1, Total Bilirubin 1.9H, Aspartate Amino Transf (AST/SGOT) 35H, Alanine Aminotransferase (ALT/SGPT) 48, Alkaline Phosphatase 97, Troponin I 0.039H, Total Protein 7.6, Albumin 4.2, Thyroid Stimulating Hormone (TSH) 1.33 04/24/19 17:26: Glucometer 153H 04/24/19 20:04: Troponin I 0.052H 04/24/19 22:19: Glucometer 158H 04/25/19 03:15: White Blood Count 8.2, Red Blood Count 4.83, Hemoglobin 14.7, Hematocrit 43, Mean Corpuscular Volume 88, Mean Corpuscular Hemoglobin 30, Mean Corpuscular Hemoglobin Concent 34, Red Cell Distribution Width 14.3, Platelet Count 154, Mean Platelet Volume 11.0H, Neutrophils (%) (Auto) 49, Lymphocytes (%) (Auto) 41, Monocytes (%) (Auto) 9, Eosinophils (%) (Auto) 2, Basophils (%) (Auto) 0, Neutrophils # (Auto) 4.0, Lymphocytes # (Auto) 3.3, Monocytes # (Auto) 0.7, Eosinophils # (Auto) 0.1, Basophils # (Auto) 0.0, Sodium Level 138, Potassium Level 4.6, Chloride Level 104, Carbon Dioxide Level 22, Anion Gap 12, Blood Urea Nitrogen 24H, Creatinine 1.44H, Estimat Glomerular Filtration Rate 51, BUN/Creatinine Ratio 17, Glucose Level 167H, Calcium Level 9.2, Phosphorus Level 3.5, Magnesium Level 2.3 Laboratory Tests 04/24/19 14:20 04/25/19 03:15 A/P: Assessment: Ischemic cardiomyopathy. Minimal troponin elevation probably due to ischemic cardiomyopathy and chronic systolic CHF CAD. 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 In Dec 2018 at [facility], [place], operated by [facility]: patent previously placed stents, Resolute Integrity 2.75x14 to distal RCA, OM 1 chronically occluded, apical hypokinesis, LVEF 45%. 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 Today's cath results are outlined above * Treat cardiomyopathy: carvedilol and enalapril, as tolerated by bp * Change ticagrelor to clopidogrel * Add Ranexa for suspected small vessel disease * Avoid nitro because of low bp and because epicardial coronary status (as seen on cath today) does not appear to require nitro * Continue PPI and antacid for suspected GERD * I had a long and detailed discussion with the patient, his , and with AYAKA Fernandez MD FACP FAC CCDS Apr 25, 2019 09:47
[2019-04-25] MEDS ORDERED: DULoxetine 30 MG (CYMBALTA) CAP ONE (10:04)
[2019-04-25] MEDS: ASPIRIN 81 MG CHEW (CHILDREN'S ASA) PO SCH (11:19)
[2019-04-25] MEDS: ATORVASTATIN 80 MG (LIPITOR) TABLET PO SCH (11:20)
[2019-04-25] MEDS: PANTOPRAZOLE 40 MG (PROTONIX) VIAL IV SCH (11:21)
--- NOTE | 2019-04-25 12:13 | NUR ---
FOLLOW UP VISIT; OFFERED ACTIVE LISTENING AND COMPASSIONATE PRESENCE FOR PT AND HIS . PT SAID HIS HEART CATH SHOWED NO BLOCKAGES AND THAT HIS MEDICATIONS ARE BEING REEVALUATED.
[2019-04-25 16:07] LABS: BILIRUBIN,URINE NEGATIVE (NEGATIVE); CLARITY,URINE CLEAR; COLOR,URINE YELLOW; GLUCOSE, URINE (UA) 1+ (NEGATIVE); KETONES,URINE NEGATIVE (NEGATIVE); LEUKOCYTE ESTERASE ,URINE NEGATIVE (NEGATIVE); NITRITE,URINE NEGATIVE (NEGATIVE); PH,URINE 6.5 (5-9); PROTEIN,URINE NEGATIVE (NEGATIVE); UROBILINOGEN,URINE NORMAL (NORMAL)
[2019-04-25 16:13] LABS: BACTERIA,URINE NEGATIVE /HPF; SQUAMOUS EPITHELIAL CELL,UR RARE /HPF
--- NOTE | 2019-04-25 18:45 | NUR ---
PT TRANSFERRED TO ROOM 416 VIA WC ACCOMPANIED BY THIS RN AND PT . PT PERSONAL BELONGINGS SENT WITH PT.
--- NOTE | 2019-04-25 18:46 | NUR ---
Patient transported per wheelchair from ICU bed 7 to Room 416 without difficulty and report received from GHAZALA ENGLISH.
[2019-04-25] MEDS: RANOLAZINE ER 500 MG TAB (RANEXA) PO SCH (20:55)
[2019-04-25] MEDS: ENALAPRIL 2.5 MG (VASOTEC) TAB PO SCH (20:55)
[2019-04-25] MEDS: ACETAMINOPHEN 500 MG TAB (TYLENOL) PO SCH (20:56)
[2019-04-25] MEDS: CARVEDILOL 3.125 MG (COREG) TABLET PO SCH (20:56)
[2019-04-25] MEDS: DULoxetine 30 MG (CYMBALTA) CAP PO SCH (20:56)
[2019-04-25] MEDS: clonazePAM 1 MG (KlonoPIN) TAB PO SCH (20:57)
[2019-04-25] MEDS: PREGABALIN 50 MG (LYRICA) CAP PO SCH (20:57)
[2019-04-26] MEDS: NS IV 1000 ML 1,000 ML IV SCH (04:07)
[2019-04-26 04:25] VITALS: BP 144/71
[2019-04-26 04:48] LABS: HEMOGLOBIN 13.6 G/DL (13.3-17.7); MEAN PLATELET VOLUME 10.7 FL (7.4-10.4); RED CELL DISTRIBUTION WIDTH 14.2 % (10.0-14.5); WHITE BLOOD COUNT 6.3 10^3/uL (4.3-11.0)
[2019-04-26 05:15] LABS: BUN/CREATININE RATIO 16; CALCIUM 8.3 MG/DL (8.5-10.1); CARBON DIOXIDE 22 MMOL/L (21-32); CHLORIDE 106 MMOL/L (98-107); CREATININE SERUM 1.01 MG/DL (0.60-1.30); GFR ESTIMATED > 60; GLUCOSE 159 MG/DL (70-105); POTASSIUM 3.9 MMOL/L (3.6-5.0); SODIUM 138 MMOL/L (135-145)
[2019-04-26] MEDS: POTASSIUM CL 10MEQ/50ML IVPB 50 ML IV SCH (05:26)
[2019-04-26] MEDS: KCL 20 MEQ TAB (K-DUR) PO SCH (05:27)
[2019-04-26] MEDS: MAGNESIUM 1 GM/100 ML IVPB 100 ML IV SCH (05:27)
[2019-04-26] MEDS: inSUlin ASPART (NovoLOG) 1 UNIT/0.01 ML (CHARGE PER UNIT) SC SCH ×7 (06:08→21:38)
[2019-04-26] MEDS: ANTACID SUSP 30 ML UDC (MYLANTA) PO SCH ×4 (06:56→21:41)
[2019-04-26 08:00] VITALS: BP 112/77
[2019-04-26] MEDS: PANTOPRAZOLE 40 MG (PROTONIX) VIAL IV SCH (08:31)
[2019-04-26] MEDS: CLOPIDOGREL 75 MG (PLAVIX) TABLET PO SCH (08:31)
[2019-04-26] MEDS: ENALAPRIL 2.5 MG (VASOTEC) TAB PO SCH ×2 (08:31→21:39)
[2019-04-26] MEDS: ATORVASTATIN 80 MG (LIPITOR) TABLET PO SCH (08:31)
[2019-04-26] MEDS: CARVEDILOL 3.125 MG (COREG) TABLET PO SCH (08:32)
[2019-04-26] MEDS: ASPIRIN 81 MG CHEW (CHILDREN'S ASA) PO SCH (08:32)
[2019-04-26] MEDS: RANOLAZINE ER 500 MG TAB (RANEXA) PO SCH ×2 (08:32→21:39)
[2019-04-26] MEDS: DULoxetine 30 MG (CYMBALTA) CAP PO SCH ×2 (08:32→21:39)
--- NOTE | 2019-04-26 11:44 | Progress Note-Cardiology ---
Cardiology SOAP Progress Note Subjective: Symptoms essentially unchanged (see previous notes) Malaise somewhat better Objective: I&O/Vital Signs 04/25/19 04/26/19 04/26/19 04/26/19 23:56 01:00 04:25 08:00 Temp 98.6 97.1 97.3 Pulse 72 68 70 78 Resp 20 18 18 B/P (MAP) 115/71 (86) 144/71 (95) 112/77 (89) Pulse Ox 97 98 97 O2 Delivery Room Air Room Air Room Air 04/26/19 09:00 Pulse Ox 97 O2 Delivery Room Air 04/26/19 00:00 Intake Total 1490 ml Output Total 650 ml Balance 840 ml Weight (Pounds): 247 Weight (Ounces): 15.0 Weight (Calculated Kilograms): 112.566672 Constitutional: AAO x 3, well-developed, well-nourished Respiratory: No accessory muscle use; lungs clear to percussion, lungs clear to auscultation Cardiovascular: regular rate-rhythm, S1 and S2, systolic murmur (soft LILIAN at card base) Gastrointestional: No tender; soft; No guarding, No rebound; audible bowel sounds Extremities: No clubbing, No cyanosis, No significant edema Neurologic/Psychiatric: oriented x 3, grossly intact, power is 5/5 both on sides Skin: No rash on exposed areas, No ulcerations on exposed areas Results/Procedures: Labs Laboratory Tests 04/25/19 15:00: Urine Color YELLOW, Urine Clarity CLEAR, Urine pH 6.5, Urine Specific [place] 1.010L, Urine Protein NEGATIVE, Urine Glucose (UA) 1+H, Urine Ketones NEGATIVE, Urine Nitrite NEGATIVE, Urine Bilirubin NEGATIVE, Urine Urobilinogen NORMAL, Urine Leukocyte Esterase NEGATIVE, Urine RBC (Auto) NEGATIVE, Urine RBC NONE, Urine WBC NONE, Urine Squamous Epithelial Cells RARE, Urine Crystals NONE, Urine Bacteria NEGATIVE, Urine Casts NONE, Urine Mucus NEGATIVE, Urine Culture Indicated NO 04/25/19 15:47: Glucometer 141H 04/25/19 20:52: Glucometer 140H 04/26/19 04:35: White Blood Count 6.3, Red Blood Count 4.56, Hemoglobin 13.6, Hematocrit 40, Mean Corpuscular Volume 88, Mean Corpuscular Hemoglobin 30, Mean Corpuscular Hemoglobin Concent 34, Red Cell Distribution Width 14.2, Platelet Count 131, Mean Platelet Volume 10.7H, Sodium Level 138, Potassium Level 3.9, Chloride Level 106, Carbon Dioxide Level 22, Anion Gap 10, Blood Urea Nitrogen 16, Creatinine 1.01, Estimat Glomerular Filtration Rate > 60, BUN/Creatinine Ratio 16, Glucose Level 159H, Calcium Level 8.3L 04/26/19 05:19: Glucometer 150H 04/26/19 10:54: Glucometer 202H Microbiology 04/24/19 MRSA Screen - Final, Complete MRSA not isolated A/P: Assessment: Ischemic cardiomyopathy. Minimal troponin elevation probably due to ischemic cardiomyopathy and chronic systolic CHF CAD. 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 In Dec 2018 at [facility]: patent previously placed stents, Resolute Integrity 2.75x14 to distal RCA, OM 1 chronically occluded, apical hypokinesis, LVEF 45%. 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 Today's cath results are outlined above * Increase carvedilol * D/c iv fluids * Increase ambulation * Monitor labs AYAKA PRINGLE MD FACP FAC CCDS Apr 26, 2019 11:44
--- NOTE | 2019-04-26 11:44 | Progress Note-Hospitalist ---
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 Upset about the fact that he was having difficulty sleeping then he was awakened at 3:00 in the morning to do an EKG which could have been done when he was awake and struggling to get to sleep last night. Tried to reassure the patient and tell him that we will try her best to accommodate any and all of his request and try to treat his conditions in order to be able to discharge home where he is more comfortable Reviewed meds and labs Cardiology did see him and adjusted medications again Denies any nausea at this current time Review of Systems General: Fatigue Cardiovascular: Chest Pain Objective Exam Vital Signs Vital Signs Date Time Temp Pulse Resp B/P (MAP) Pulse Ox O2 Delivery O2 Flow Rate FiO2 04/26/19 13:00 70 04/26/19 12:00 96.5 18 129/82 (98) 98 Room Air 04/25/19 16:00 2.00 Capillary Refill : Less Than 3 Seconds General Appearance: No Apparent Distress, WD/WN HEENT: PERRL/EOMI, Pharynx Normal Neck: Full Range of Motion, Normal Inspection, Non Tender, Supple Respiratory: Chest Non Tender, Lungs Clear, Normal Breath Sounds, No Accessory Muscle Use, No Respiratory Distress Cardiovascular: Regular Rate, Rhythm, No Edema Gastrointestinal: Normal Bowel Sounds, No Organomegaly, No Pulsatile Mass, Non Tender, Soft Rectal: Deferred Extremity: Normal Capillary Refill, No Pedal Edema, Other (LOWER EXTREMITY BILATERAL AMPUTATION FOREFOOT BILATERALLY) Neurologic/Psychiatric: Alert, Oriented x3, product expert II-XII Norm as Tested, Other (FLAT AFFECT) Skin: Normal Color, Warm/Dry Lymphatic: No Adenopathy Results/Procedures Lab Laboratory Tests 04/26/19 04:35 Patient resulted labs reviewed. Assessment/Plan Assessment and Plan Assess & Plan/Chief Complaint Assessment per PCP: CHEST PAIN HYPOTENSION TACHYCARDIA CORONARY ARTERY DISEASE DIABETES MELLITUS DEPRESSION ANXIETY HYPERLIPIDEMIA PERIPHERAL VASCULAR DISEASE Plan: Appreciate Cardiology management of medications to improve hypotension but treat chest pain Try to limit disturbances during the night Diagnosis/Problems Diagnosis/Problems (1) Chest pain Status: Acute Qualifiers: Chest pain type: unspecified Qualified Codes: R07.9 - Chest pain, unspecified (2) Tachycardia Status: Acute (3) Diabetes mellitus Status: Chronic Qualifiers: Diabetes mellitus type: type 2 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 mellitus oil heaterman insulin use: with fdc use Diabetes mellitus complication status: with other specified complication Qualified Codes: E11.69 - Type 2 diabetes mellitus with other specified complication; Z79.4 - terminal clerk (current) use of insulin (4) Anxiety Status: Chronic (5) Hypotension Status: Acute Qualifiers: Hypotension type: unspecified hypotension type Qualified Codes: I95.9 - Hypotension, unspecified (6) Headache Status: Acute Qualifiers: Headache type: unspecified (7) Coronary artery disease Status: Chronic Qualifiers: Coronary Disease-Associated Artery/Lesion type: [place] artery [place] vs. transplanted heart: [place] heart Associated angina: without angina Qualified Codes: I25.10 - Atherosclerotic heart disease of [place] coronary artery without angina pectoris Clinical Quality Measures DVT/VTE Risk/Contraindication: Risk Factor Score Per Nursin RFS Level Per Nursing on Admit: 2=Moderate NAKUL GIRON DO Apr 26, 2019 11:44
[2019-04-26 12:00] VITALS: BP 129/82
[2019-04-26 16:00] VITALS: BP 132/77
[2019-04-26 20:45] VITALS: BP 145/89
[2019-04-26] MEDS ORDERED: CARVEDILOL 3.125 MG (COREG) TABLET PO SCH (21:00)
[2019-04-26] MEDS: clonazePAM 1 MG (KlonoPIN) TAB PO SCH (21:39)
[2019-04-26] MEDS: ACETAMINOPHEN 500 MG TAB (TYLENOL) PO SCH (21:39)
[2019-04-26] MEDS: PREGABALIN 50 MG (LYRICA) CAP PO SCH (21:39)
[2019-04-26] MEDS: CARVEDILOL 6.25 MG (COREG) TAB PO SCH (21:39)
[2019-04-27] VITALS: BP 114/60
[2019-04-27 04:00] VITALS: BP 123/69
[2019-04-27] MEDS: ANTACID SUSP 30 ML UDC (MYLANTA) PO SCH ×2 (06:11→11:47)
[2019-04-27 06:17] LABS: BASOPHILS % (AUTO) 0 % (0-10); EOSINOPHILS # (AUTO) 0.1 10^3/uL (0.0-0.3); EOSINOPHILS % (AUTO) 2 % (0-10); HEMATOCRIT 41 % (40-54); HEMOGLOBIN 14.1 G/DL (13.3-17.7); LYMPHOCYTES # (AUTO) 1.9 X 10^3 (1.0-4.0); LYMPHOCYTES % (AUTO) 26 % (12-44); MEAN CORPUSCULAR HEMOGLOBIN 31 PG (25-34); MEAN CORPUSCULAR HGB CONC 35 G/DL (32-36); MEAN CORPUSCULAR VOLUME 88 FL (80-99); MEAN PLATELET VOLUME 11.2 FL (7.4-10.4); MONOCYTES # (AUTO) 0.7 X 10^3 (0.0-1.0); MONOCYTES % (AUTO) 10 % (0-12); NEUTROPHILS # (AUTO) 4.6 X 10^3 (1.8-7.8); NEUTROPHILS % (AUTO) 62 % (42-75); PLATELET COUNT 134 10^3/uL (130-400); RED CELL DISTRIBUTION WIDTH 13.9 % (10.0-14.5); WHITE BLOOD COUNT 7.3 10^3/uL (4.3-11.0)
[2019-04-27 06:35] LABS: BUN/CREATININE RATIO 15; CALCIUM 8.7 MG/DL (8.5-10.1); CARBON DIOXIDE 23 MMOL/L (21-32); CHLORIDE 106 MMOL/L (98-107); CREATININE SERUM 0.97 MG/DL (0.60-1.30); GFR ESTIMATED > 60; GLUCOSE 147 MG/DL (70-105); POTASSIUM 4.1 MMOL/L (3.6-5.0); SODIUM 139 MMOL/L (135-145)
[2019-04-27] MEDS: inSUlin ASPART (NovoLOG) 1 UNIT/0.01 ML (CHARGE PER UNIT) SC SCH ×7 (06:40→21:58)
[2019-04-27 07:21] VITALS: BP 127/78
[2019-04-27] MEDS: PANTOPRAZOLE 40 MG (PROTONIX) VIAL IV SCH (08:54)
[2019-04-27] MEDS: ASPIRIN 81 MG CHEW (CHILDREN'S ASA) PO SCH (08:55)
[2019-04-27] MEDS: CARVEDILOL 6.25 MG (COREG) TAB PO SCH ×2 (08:55→20:52)
[2019-04-27] MEDS: RANOLAZINE ER 500 MG TAB (RANEXA) PO SCH ×2 (08:55→20:51)
[2019-04-27] MEDS: DULoxetine 30 MG (CYMBALTA) CAP PO SCH ×2 (08:55→21:00)
[2019-04-27] MEDS: CLOPIDOGREL 75 MG (PLAVIX) TABLET PO SCH (08:55)
[2019-04-27] MEDS: ENALAPRIL 2.5 MG (VASOTEC) TAB PO SCH (08:55)
[2019-04-27] MEDS: ATORVASTATIN 80 MG (LIPITOR) TABLET PO SCH (08:55)
[2019-04-27 11:22] VITALS: BP 131/74
--- NOTE | 2019-04-27 11:39 | Progress Note-Hospitalist ---
Subjective HPI/CC On Admission Date Seen by Provider: Apr 27, 2019 Time Seen by Provider: 12:00 Subjective/Events-last exam Patient doing well Appears to be chronically depressed at bedside Will evaluate Dr. Bowers's plan regarding discharge I have reconciled and sent in all of my prescriptions that he needs from a medical standpoint but will allow cardiology to do the rest per their specifications Review of Systems General: Fatigue Objective Exam Vital Signs Vital Signs Date Time Temp Pulse Resp B/P (MAP) Pulse Ox O2 Delivery O2 Flow Rate FiO2 04/27/19 12:48 74 04/27/19 11:22 98.2 18 131/74 (93) 96 Room Air 04/25/19 16:00 2.00 Capillary Refill : Less Than 3 Seconds General Appearance: No Apparent Distress, WD/WN HEENT: PERRL/EOMI, Pharynx Normal Neck: Full Range of Motion, Normal Inspection, Non Tender, Supple Respiratory: Chest Non Tender, Lungs Clear, Normal Breath Sounds, No Accessory Muscle Use, No Respiratory Distress Cardiovascular: Regular Rate, Rhythm, No Edema Gastrointestinal: Normal Bowel Sounds, No Organomegaly, No Pulsatile Mass, Non Tender, Soft Rectal: Deferred Extremity: Normal Capillary Refill, No Pedal Edema, Other (LOWER EXTREMITY BILATERAL AMPUTATION FOREFOOT BILATERALLY) Neurologic/Psychiatric: Alert, Oriented x3, No Motor/Sensory Deficits, drill doctor II-X II Norm as Tested, Depressed Affect, Other (FLAT AFFECT) Skin: Normal Color, Warm/Dry Lymphatic: No Adenopathy Results/Procedures Lab Laboratory Tests 04/27/19 05:25 Patient resulted labs reviewed. Assessment/Plan Assessment and Plan Assess & Plan/Chief Complaint Assessment per PCP: CHEST PAIN HYPOTENSION TACHYCARDIA CORONARY ARTERY DISEASE DIABETES MELLITUS DEPRESSION ANXIETY HYPERLIPIDEMIA PERIPHERAL VASCULAR DISEASE Plan: Appreciate Cardiology management of medications to improve hypotension but treat chest pain Try to limit disturbances during the night Diagnosis/Problems Diagnosis/Problems (1) Chest pain Status: Acute Qualifiers: Chest pain type: unspecified Qualified Codes: R07.9 - Chest pain, unspecified (2) Tachycardia Status: Acute (3) Diabetes mellitus Status: Chronic Qualifiers: Diabetes mellitus type: type 2 Diabetes mellitus pulp operator insulin use: with longterm use Diabetes mellitus complication status: with other specified complication Qualified Codes: E11.69 - Type 2 diabetes mellitus with other specified complication; Z79.4 - furniture lumber production worker (current) use of insulin (4) Anxiety Status: Chronic (5) Hypotension Status: Acute Qualifiers: Hypotension type: unspecified hypotension type Qualified Codes: I95.9 - Hypotension, unspecified (6) Headache Status: Acute Qualifiers: Headache type: unspecified (7) Coronary artery disease Status: Chronic Qualifiers: Coronary Disease-Associated Artery/Lesion type: [place] artery [place] vs. transplanted heart: [place] heart Associated angina: without angina Qualified Codes: I25.10 - Atherosclerotic heart disease of [place] coronary artery without angina pectoris Clinical Quality Measures DVT/VTE Risk/Contraindication: Risk Factor Score Per Nursin RFS Level Per Nursing on Admit: 2=Moderate NAKUL GIRON DO Apr 27, 2019 11:39
[2019-04-27] MEDS ORDERED: DULO30CA3 PO (12:47)
[2019-04-27] MEDS ORDERED: PANT40TA2 PO (12:47)
--- NOTE | 2019-04-27 12:48 | Discharge Summary-Hospitalist ---
Diagnosis/Chief Complaint Date of Admission Apr 24, 2019 at 13:39 Date of Discharge Discharge Date: Apr 27, 2019 Discharge Diagnosis (1) Chest pain Status: Acute (2) Tachycardia Status: Acute (3) Diabetes mellitus Status: Chronic (4) Anxiety Status: Chronic (5) Hypotension Status: Acute (6) Headache Status: Acute (7) Coronary artery disease Status: Chronic Discharge Summary Discharge Physical Exam Allergies: Coded Allergies: linezolid (Verified Allergy, Unknown, 05/28/18) Vitals & I&Os Vital Signs Date Time Temp Pulse Resp B/P (MAP) Pulse Ox O2 Delivery O2 Flow Rate FiO2 04/27/19 12:48 74 04/27/19 11:22 98.2 18 131/74 (93) 96 Room Air 04/25/19 16:00 2.00 General Appearance: No Apparent Distress, WD/WN, Chronically ill Respiratory: Chest Non Tender, Lungs Clear, Normal Breath Sounds, No Accessory Muscle Use, No Respiratory Distress Cardiovascular: Regular Rate, Rhythm, No Edema, No Gallop, No JVD, No Murmur, Normal Peripheral Pulses Neurologic/Psychiatric: Alert, Oriented x3, No Motor/Sensory Deficits, Normal Mood/Affect, monotype machinist II-XII Norm as Tested, Depressed Affect Hospital Course Was the Problem List Reviewed?: Yes Patient doing well Appears to be chronically depressed at bedside Will evaluate Dr. Bowers's plan regarding discharge I have reconciled and sent in all of my prescriptions that he needs from a medical standpoint but will allow cardiology to do the rest per their specifications Hospital course: Patient was admitted for chest pain cardiology was consulted and multiple meds were changed due to tachycardia along with recurrent chest pain. Cardiac catheterization report was reviewed by Dr. Lopez and multiple medication changes were made. Patient was closely monitored for any side effects he felt very well at time of discharge and Dr. Cooper sent all of the new cardiology medications to the pharmacy and the Cymbalta was changed to twice a day as Dr. Ha had done on Sunday to help with the severe depression along with addition of proton pump inhibitor. Labs (last 24 hrs) Laboratory Tests 04/26/19 16:17: Glucometer 126H 04/26/19 21:09: Glucometer 143H 04/27/19 05:25: White Blood Count 7.3, Red Blood Count 4.63, Hemoglobin 14.1, Hematocrit 41, Mean Corpuscular Volume 88, Mean Corpuscular Hemoglobin 31, Mean Corpuscular Hemoglobin Concent 35, Red Cell Distribution Width 13.9, Platelet Count 134, Mean Platelet Volume 11.2H, Neutrophils (%) (Auto) 62, Lymphocytes (%) (Auto) 26, Monocytes (%) (Auto) 10, Eosinophils (%) (Auto) 2, Basophils (%) (Auto) 0, Neutrophils # (Auto) 4.6, Lymphocytes # (Auto) 1.9, Monocytes # (Auto) 0.7, Eosinophils # (Auto) 0.1, Basophils # (Auto) 0.0, Sodium Level 139, Potassium Level 4.1, Chloride Level 106, Carbon Dioxide Level 23, Anion Gap 10, Blood Urea Nitrogen 15, Creatinine 0.97, Estimat Glomerular Filtration Rate > 60, BUN/Creatinine Ratio 15, Glucose Level 147H, Calcium Level 8.7, Magnesium Level 2.0, B-Type Natriuretic Peptide 124.3H 04/27/19 11:02: Glucometer 181H Microbiology 04/24/19 MRSA Screen - Final, Complete MRSA not isolated Patient resulted labs reviewed. Pending Labs Laboratory Tests 04/27/19 05:25: White Blood Count 7.3, Red Blood Count 4.63, Hemoglobin 14.1, Hematocrit 41, Mean Corpuscular Volume 88, Mean Corpuscular Hemoglobin 31, Mean Corpuscular Hemoglobin Concent 35, Red Cell Distribution Width 13.9, Platelet Count 134, Mean Platelet Volume 11.2, Neutrophils (%) (Auto) 62, Lymphocytes (%) (Auto) 26, Monocytes (%) (Auto) 10, Eosinophils (%) (Auto) 2, Basophils (%) (Auto) 0, [place] trophils # (Auto) 4.6, Lymphocytes # (Auto) 1.9, Monocytes # (Auto) 0.7, Eosinophils # (Auto) 0.1, Basophils # (Auto) 0.0, Sodium Level 139, Potassium Level 4.1, Chloride Level 106, Carbon Dioxide Level 23, Anion Gap 10, Blood Urea Nitrogen 15, Creatinine 0.97, Estimat Glomerular Filtration Rate > 60, BUN/Creatinine Ratio 15, Glucose Level 147, Calcium Level 8.7, Magnesium Level 2.0, B-Type Natriuretic Peptide 124.3 04/27/19 11:02: Glucometer 181 Discussion & Recommendations Discharge Planning: <30 minutes discharge planning Discharge Home Medications: Active Scripts Active Protonix (Pantoprazole Sodium) 40 Mg Tablet.dr 40 Mg PO DAILY Cymbalta (Duloxetine HCl) 30 Mg Capsule.dr 30 Mg PO BID Reported Aspirin EC (Aspirin) 81 Mg Tablet.dr 81 Mg PO DAILY Brilinta (Ticagrelor) 90 Mg Tablet 90 Mg PO BID Duloxetine HCl 30 Mg Capsule.dr 30 Mg PO DAILY Nitroglycerin 0.4 Mg Tab.subl 0.4 Mg SL UD PRN Atorvastatin Calcium 80 Mg Tablet 80 Mg PO DAILY Isosorbide Mononitrate ER (Isosorbide Mononitrate) 30 Mg Tab.er.24h 30 Mg PO DAILY Tylenol Extra Strength (Acetaminophen) 500 Mg Tablet 1,000 Mg PO HS TAKES 2 (500MG) TABLETS Daily Value (Multivitamin) 1 Each Tablet 1 Tab PO DAILY Tresiba Flextouch U-200 (Insulin Degludec) 200 Unit/1 Ml Insuln.pen 50 Units SC DAILY Novolog Flexpen (Insulin Aspart) 300 Units/3 Ml Solution 10 Units SC TIDAC Lyrica (Pregabalin) 50 Mg Capsule 50 Mg PO HS Clonazepam 1 Mg Tablet 2 Mg PO HS TAKES 2 (1 MG) TABLETS Instructions to patient/family Please see electronic discharge instructions given to patient. Clinical Quality Measures DVT/VTE Risk/Contraindication: Risk Factor Score Per Nursin RFS Level Per Nursing on Admit: 2=Moderate Problem Qualifiers (1) Chest pain: Chest pain type: unspecified Qualified Codes: R07.9 - Chest pain, unspecified (2) Diabetes mellitus: Diabetes mellitus type: type 2 Diabetes mellitus exterminator termite insulin use: with snf use Diabetes mellitus complication status: with other specified complication Qualified Codes: E11.69 - Type 2 diabetes mellitus with other specified complication; Z79.4 - terminal block assembler (current) use of insulin (3) Hypotension: Hypotension type: unspecified hypotension type Qualified Codes: I95.9 - Hypotension, unspecified (4) Headache: Headache type: unspecified (5) Coronary artery disease: Coronary Disease-Associated Artery/Lesion type: [place] artery [place] vs. transplanted heart: [place] heart Associated angina: without angina Qualified Codes: I25.10 - Atherosclerotic heart disease of [place] coronary artery without angina pectoris NAKUL GIRON DO Apr 27, 2019 12:48
--- NOTE | 2019-04-27 15:19 | Progress Note-Cardiology ---
Cardiology SOAP Progress Note Subjective: Feels somewhat better. No new symptoms. Gen malaise and intermittent chest and gen discomfort are modestly improved No palp or syncope or leg swelling Objective: I&O/Vital Signs 04/27/19 04/27/19 04/27/19 04/27/19 04:00 07:00 07:21 09:00 Temp 97.4 97.8 Pulse 76 75 80 Resp 18 18 B/P (MAP) 123/69 (87) 127/78 (94) Pulse Ox 97 96 97 O2 Delivery Room Air Room Air Room Air 04/27/19 04/27/19 11:22 12:48 Temp 98.2 Pulse 74 74 Resp 18 B/P (MAP) 131/74 (93) Pulse Ox 96 O2 Delivery Room Air 04/27/19 00:00 Intake Total 1310 ml Balance 1310 ml Weight (Pounds): 247 Weight (Ounces): 3.0 Weight (Calculated Kilograms): 112.274941 Constitutional: AAO x 3, well-developed, well-nourished Respiratory: No accessory muscle use; lungs clear to percussion, lungs clear to auscultation Cardiovascular: regular rate-rhythm, S1 and S2, systolic murmur (soft LILIAN at card base) Gastrointestional: No tender; soft; No guarding, No rebound; audible bowel sounds Extremities: No clubbing, No cyanosis, No significant edema Neurologic/Psychiatric: oriented x 3, grossly intact, power is 5/5 both on sides Skin: No rash on exposed areas, No ulcerations on exposed areas Results/Procedures: Labs Laboratory Tests 04/26/19 16:17: Glucometer 126H 04/26/19 21:09: Glucometer 143H 04/27/19 05:25: White Blood Count 7.3, Red Blood Count 4.63, Hemoglobin 14.1, Hematocrit 41, Mean Corpuscular Volume 88, Mean Corpuscular Hemoglobin 31, Mean Corpuscular Hemoglobin Concent 35, Red Cell Distribution Width 13.9, Platelet Count 134, Mean Platelet Volume 11.2H, Neutrophils (%) (Auto) 62, Lymphocytes (%) (Auto) 26, Monocytes (%) (Auto) 10, Eosinophils (%) (Auto) 2, Basophils (%) (Auto) 0, Neutrophils # (Auto) 4.6, Lymphocytes # (Auto) 1.9, Monocytes # (Auto) 0.7, Eosinophils # (Auto) 0.1, Basophils # (Auto) 0.0, Sodium Level 139, Potassium Level 4.1, Chloride Level 106, Carbon Dioxide Level 23, Anion Gap 10, Blood Urea Nitrogen 15, Creatinine 0.97, Estimat Glomerular Filtration Rate > 60, BUN/Creatinine Ratio 15, Glucose Level 147H, Calcium Level 8.7, Magnesium Level 2.0, B-Type Natriuretic Peptide 124.3H 04/27/19 11:02: Glucometer 181H Microbiology 04/24/19 MRSA Screen - Final, Complete MRSA not isolated Laboratory Tests 04/26/19 04:35 04/27/19 05:25 A/P: Assessment: Ischemic cardiomyopathy. Minimal troponin elevation probably due to ischemic cardiomyopathy and chronic systolic CHF CAD. [facility] for [employer], ostial 2nd OM BEBA, OM 1 chronically occluded, distal RCA severely diseased. In Dec 2018 at [facility]: patent previously placed stents, Resolute Integrity 2.75x14 to distal RCA, OM 1 chronically occluded, apical hypokinesis, LVEF 45%. 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 Increase AZEB-inhibitor today * D/c Mylanta. Continue Protonix * Increase ambulation * Monitor labs AYAKA PRINGLE MD FACP FAC CCDS Apr 27, 2019 15:19
[2019-04-27 16:01] VITALS: BP 119/68
[2019-04-27 20:20] VITALS: BP 123/72
[2019-04-27] MEDS: PREGABALIN 50 MG (LYRICA) CAP PO SCH (20:52)
[2019-04-27] MEDS: clonazePAM 1 MG (KlonoPIN) TAB PO SCH (20:52)
[2019-04-27] MEDS ORDERED: ENALAPRIL 2.5 MG (VASOTEC) TAB PO SCH (21:00)
[2019-04-27] MEDS: ENALAPRIL 5 MG (VASOTEC) TAB PO SCH (21:00)
[2019-04-27] MEDS: ACETAMINOPHEN 500 MG TAB (TYLENOL) PO SCH (21:01)
[2019-04-28] VITALS: BP 87/47
[2019-04-28 04:00] VITALS: BP 90/49
[2019-04-28 04:35] LABS: BUN/CREATININE RATIO 17; CALCIUM 8.9 MG/DL (8.5-10.1); CARBON DIOXIDE 24 MMOL/L (21-32); CHLORIDE 105 MMOL/L (98-107); CREATININE SERUM 1.17 MG/DL (0.60-1.30); GFR ESTIMATED > 60; GLUCOSE 162 MG/DL (70-105); MAGNESIUM 1.8 MG/DL (1.8-2.4); POTASSIUM 4.3 MMOL/L (3.6-5.0); SODIUM 138 MMOL/L (135-145)
[2019-04-28] MEDS: inSUlin ASPART (NovoLOG) 1 UNIT/0.01 ML (CHARGE PER UNIT) SC SCH ×6 (06:11→17:13)
[2019-04-28 08:00] VITALS: BP 116/73
--- NOTE | 2019-04-28 08:55 | Progress Note (SOAP) ---
Subjective Time Seen by a Provider: 08:53 Subjective/Events-last exam Patient feeling better today. Patient's medicines has been changed around Objective Exam Vital Signs Date Time Temp Pulse Resp B/P (MAP) Pulse Ox O2 Delivery O2 Flow Rate FiO2 04/28/19 07:00 63 04/28/19 04:00 98.2 72 18 90/49 (63) 92 Room Air 04/28/19 01:00 69 04/28/19 00:00 97.5 71 18 87/47 (60) 95 Room Air 04/27/19 20:20 98.1 68 18 123/72 (89) 98 Room Air 04/27/19 19:00 73 04/27/19 16:01 98.4 75 18 119/68 (85) 94 Room Air 04/27/19 12:48 74 04/27/19 11:22 98.2 74 18 131/74 (93) 96 Room Air 04/27/19 09:00 97 Room Air I & O 04/28/19 07:00 Intake Total 1750 ml Balance 1750 ml Capillary Refill : Less Than 3 Seconds General Appearance: No Apparent Distress, WD/WN Respiratory: Lungs Clear, No Accessory Muscle Use, No Respiratory Distress Cardiovascular: Regular Rate, Rhythm, No Murmur Results Lab Laboratory Tests 04/28/19 03:48 Laboratory Tests 04/27/19 11:02: Glucometer 181H 04/27/19 16:01: Glucometer 153H 04/27/19 21:55: Glucometer 172H 04/28/19 03:48: Sodium Level 138, Potassium Level 4.3, Chloride Level 105, Carbon Dioxide Level 24, Anion Gap 9, Blood Urea Nitrogen 20H, Creatinine 1.17, Estimat Glomerular Filtration Rate > 60, BUN/Creatinine Ratio 17, Glucose Level 162H, Calcium Level 8.9, Magnesium Level 1.8 Microbiology 04/24/19 MRSA Screen - Final, Complete MRSA not isolated Assessment/Plan Assessment/Plan Assess & Plan/Chief Complaint Ischemic cardiomyopathy. Coronary artery disease. Diabetes. Renal insufficiency. Chest pain. Hypotension. Tachycardia. Peripheral vascular disease. Hyperlipidemia. Clinical Quality Measures DVT/VTE Risk/Contraindication: Risk Factor Score Per Nursin RFS Level Per Nursing on Admit: 2=Moderate RED ABREU DO Apr 28, 2019 08:55
[2019-04-28] MEDS: PANTOPRAZOLE 40 MG (PROTONIX) VIAL IV SCH (09:17)
[2019-04-28] MEDS: ASPIRIN 81 MG CHEW (CHILDREN'S ASA) PO SCH (09:17)
[2019-04-28] MEDS: CARVEDILOL 6.25 MG (COREG) TAB PO SCH (09:17)
[2019-04-28] MEDS: RANOLAZINE ER 500 MG TAB (RANEXA) PO SCH (09:18)
[2019-04-28] MEDS: DULoxetine 30 MG (CYMBALTA) CAP PO SCH (09:18)
[2019-04-28] MEDS: ENALAPRIL 5 MG (VASOTEC) TAB PO SCH (09:18)
[2019-04-28] MEDS: ATORVASTATIN 80 MG (LIPITOR) TABLET PO SCH (09:18)
[2019-04-28] MEDS: CLOPIDOGREL 75 MG (PLAVIX) TABLET PO SCH (09:18)
[2019-04-28] MEDS ORDERED: ASPI-999 PO (09:41)
[2019-04-28] MEDS ORDERED: CLOP75TA28 PO (09:41)
[2019-04-28] MEDS ORDERED: CARV6.252 PO (09:41)
[2019-04-28] MEDS ORDERED: ENAL5TAB PO (09:41)
[2019-04-28] MEDS ORDERED: RANO500T3 PO (09:41)
--- NOTE | 2019-04-28 09:43 | Discharge Inst-Cardiology ---
Discharge Inst-Cardiac Discharge Medications New Medications: Pantoprazole Sodium (Protonix) 40 Mg Tablet.dr 40 MG PO DAILY, #30 TAB Aspirin (Aspirin) 81 Mg Tab.chew 81 MG PO DAILY, #30 TAB 3 Refills Carvedilol (Carvedilol) 6.25 Mg Tablet 6.25 MG PO BID, #60 TAB 3 Refills Clopidogrel Bisulfate (Clopidogrel) 75 Mg Tablet 75 MG PO DAILY, #30 TAB 3 Refills Duloxetine HCl (Cymbalta) 30 Mg Capsule.dr 30 MG PO BID, #60 CAP Enalapril Maleate (Enalapril Maleate) 5 Mg Tablet 5 MG PO BID, #60 TAB 3 Refills Ranolazine (Ranexa) 500 Mg Tab.er.12h 500 MG PO BID, #60 TAB 3 Refills Continued Medications: Acetaminophen (Tylenol Extra Strength) 500 Mg Tablet 1000 MG PO HS, TAB TAKES 2 (500MG) TABLETS Atorvastatin Calcium (Atorvastatin Calcium) 80 Mg Tablet 80 MG PO DAILY, TAB Clonazepam (Clonazepam) 1 Mg Tablet 2 MG PO HS, TAB TAKES 2 (1 MG) TABLETS Insulin Aspart (Novolog Flexpen) 300 Units/3 Ml Solution 10 UNITS SC TIDAC, EA Insulin Degludec (Tresiba Flextouch U-200) 200 Unit/1 Ml Insuln.pen 50 UNITS SC DAILY, EA Multivitamin (Daily Value) 1 Each Tablet 1 TAB PO DAILY, TAB Nitroglycerin (Nitroglycerin) 0.4 Mg Tab.subl 0.4 MG SL UD PRN for CHEST PAIN, TAB Pregabalin (Lyrica) 50 Mg Capsule 50 MG PO HS, CAP Discontinued Medications: Aspirin (Aspirin EC) 81 Mg Tablet.dr 81 MG PO DAILY, TAB Duloxetine HCl (Duloxetine HCl) 30 Mg Capsule.dr 30 MG PO DAILY, CAP Isosorbide Mononitrate (Isosorbide Mononitrate ER) 30 Mg Tab.er.24h 30 MG PO DAILY, TAB Ticagrelor (Brilinta) 90 Mg Tablet 90 MG PO BID, TAB New, Converted or Re-Newed RX: Transmitted to Pharmacy Patient Instructions Patient Instructions: Please schedule follow up appointment to see Dr. Brennan in 1-2 weeks ROSA WHEATLEY Apr 28, 2019 09:43
--- NOTE | 2019-04-28 10:31 | Progress Note-Cardiology ---
Cardiology SOAP Progress Note Subjective: No cp or palp or syncope or shortness of breath Still some malaise, albeit improved Wishes to go home Objective: I&O/Vital Signs 04/28/19 04/28/19 04/28/19 04/28/19 00:00 01:00 04:00 07:00 Temp 97.5 98.2 Pulse 71 69 72 63 Resp 18 18 B/P (MAP) 87/47 (60) 90/49 (63) Pulse Ox 95 92 O2 Delivery Room Air Room Air 04/28/19 08:00 Temp 97.5 Pulse 81 Resp 18 B/P (MAP) 116/73 (87) Pulse Ox 97 O2 Delivery Room Air 04/28/19 00:00 Intake Total 1450 ml Balance 1450 ml Weight (Pounds): 247 Weight (Ounces): 7.0 Weight (Calculated Kilograms): 112.125174 Constitutional: AAO x 3, well-developed, well-nourished Respiratory: No accessory muscle use; lungs clear to percussion, lungs clear to auscultation Cardiovascular: regular rate-rhythm, S1 and S2, systolic murmur (soft LILIAN at card base) Gastrointestional: No tender; soft; No guarding, No rebound; audible bowel s ounds Extremities: No clubbing, No cyanosis, No significant edema Neurologic/Psychiatric: oriented x 3, grossly intact, power is 5/5 both on sides Skin: No rash on exposed areas, No ulcerations on exposed areas Results/Procedures: Labs Laboratory Tests 04/27/19 11:02: Glucometer 181H 04/27/19 16:01: Glucometer 153H 04/27/19 21:55: Glucometer 172H 04/28/19 03:48: Sodium Level 138, Potassium Level 4.3, Chloride Level 105, Carbon Dioxide Level 24, Anion Gap 9, Blood Urea Nitrogen 20H, Creatinine 1.17, Estimat Glomerular Filtration Rate > 60, BUN/Creatinine Ratio 17, Glucose Level 162H, Calcium Level 8.9, Magnesium Level 1.8 Microbiology 04/24/19 MRSA Screen - Final, Complete MRSA not isolated Laboratory Tests 04/27/19 05:25 04/28/19 03:48 A/P: Assessment: Ischemic cardiomyopathy. Minimal troponin elevation probably due to ischemic cardiomyopathy and chronic systolic CHF CAD. 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 In Dec 2018 at [facility]: patent previously placed stents, Resolute Integrity 2.75x14 to distal RCA, OM 1 chronically occluded, apical hypokinesis, LVEF 45%. 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 Cardiac f/u with Dr Brennan. AYAKA PRINGLE MD FACP FAC CCDS Apr 28, 2019 10:31
[2019-04-28 12:00] VITALS: BP 119/71
--- NOTE | 2019-05-02 15:14 | CARDIAC CATHETERIZATION ---
DATE OF SERVICE: 04/25/2019 CARDIAC CATHETERIZATION REPORT INDICATIONS: The patient is a 58-year-old man, who has had multiple coronary interventions. He presents with chest discomfort suggestive of angina. He had multiple coronary artery disease risk factors. Cardiac catheterization was carried out after having obtained an informed consent. DESCRIPTION OF PROCEDURE: He was brought to the cardiac catheterization laboratory in a fasting state. Right groin was prepared and draped in usual sterile fashion. Utilizing 1% lidocaine was used for local anesthesia. Modified Seldinger technique was used to advance a 5-Monegasque sheath in right femoral artery. A 5-Monegasque JL4 catheter was used for left coronary angiography. A 5-Monegasque JR4 catheter was used for right coronary angiography. A 5-Monegasque pigtail catheter was used for left heart catheterization and left ventricular angiography. The pigtail catheter was pulled back to the aortic arch and aortic arch angiography was performed. Angiography of the right femoral artery was carried out through the sheath and Mynx was used to achieve hemostasis following completion of the cardiac catheterization procedure and removal of all catheters. HEMODYNAMICS: Left ventricular end-diastolic pressure following coronary angiography and left ventricular angiography was 16 mmHg. There is no significant pressure gradient on pullback across the aortic valve. Ascending aortic pressure was 123/70 with a mean of 96 mmHg. CORONARY ANGIOGRAPHY: Mild to moderate coronary calcification is seen. Left main coronary artery does not exhibit significant disease. Left anterior descending artery had a widely patent stent in its mid portion. The second diagonal branch of the left anterior descending artery arises from the stented segment of the left anterior descending. The diagonal branch has approximately 50% proximal stenosis. Left circumflex artery exhibits total occlusion of the first obtuse marginal branch. There is a patent stent in the proximal portion of the distal obtuse marginal. A ramus intermedius artery is tiny with moderate diffuse disease. Right coronary artery is dominant and has a patent stent in its distal portion. The very distal right coronary artery has 40-50% stenosis. LEFT VENTRICULAR ANGIOGRAPHY: Left ventricular angiography was carried out in the right anterior oblique projection. Global left ventricular systolic function is impaired. There is anteroapical akinesis. AORTIC ARCH ANGIOGRAPHY: Aortic arch angiography did not indicate any significant thoracic aortic aneurysm or dissection, to the extent visualized. The neck arteries, to the extent visualized, do not exhibit significant disease. CONCLUSIONS: 1. Moderate coronary artery disease. 2. Patent stent in the mid left anterior descending, second obtuse marginal, and distal right coronary artery. The first obtuse marginal is chronically occluded. 3. Impairment of left ventricular systolic function with ejection fraction of 40-45%. 4. Apical akinesis. 5. Mild elevation of left ventricular end-diastolic pressure now. DISCUSSION AND RECOMMENDATIONS: Based on results of the study, a conservative approach appears appropriate. Optimization of his medical regimen is recommended. 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
== END 2019-04-28 16:38 | disposition home or self-care (01) | DRG 287 ==
LOC: ICU 13:39 → 4TH 04-25 18:39
PROVIDERS: ADMIT Family Medicine; ATTEND Family Medicine
PROC: 4A023N7 Measurement of Cardiac Sampling and Pressure, Left Heart, Percutaneous Approach (ICD-10-PCS; principal; 2019-04-25)
PROC: B2111ZZ Fluoroscopy of Multiple Coronary Arteries using Low Osmolar Contrast (ICD-10-PCS; 2019-04-25)
PROC: B2151ZZ Fluoroscopy of Left Heart using Low Osmolar Contrast (ICD-10-PCS; 2019-04-25)
PROC: B3101ZZ Fluoroscopy of Thoracic Aorta using Low Osmolar Contrast (ICD-10-PCS; 2019-04-25)
DX: I25.5 Ischemic cardiomyopathy (principal); I13.0 Hypertensive heart and chronic kidney disease with heart failure and stage 1 through stage 4 chronic kidney disease, or unspecified chronic kidney disease; I50.22 Chronic systolic (congestive) heart failure; N18.2 Chronic kidney disease, stage 2 (mild); N17.9 Acute kidney failure, unspecified; I25.10 Atherosclerotic heart disease of native coronary artery without angina pectoris; I25.82 Chronic total occlusion of coronary artery; F32.9 Major depressive disorder, single episode, unspecified; E11.51 Type 2 diabetes mellitus with diabetic peripheral angiopathy without gangrene; I95.9 Hypotension, unspecified; R00.0 Tachycardia, unspecified; E78.5 Hyperlipidemia, unspecified; F41.9 Anxiety disorder, unspecified; K21.9 Gastro-esophageal reflux disease without esophagitis; Z79.4 Long term (current) use of insulin; Z95.5 Presence of coronary angioplasty implant and graft; Z91.14 Patient's other noncompliance with medication regimen; Z89.432 Acquired absence of left foot; Z89.431 Acquired absence of right foot
CPT/HCPCS: 36415; 71045; 80048; 80053; 81000; 82962; 83735; 83880; 84100; 84443; 84484; 85007; 85025; 85027; 87081; 93005; 93458

== ENCOUNTER 2019-06-16 23:15 | Inpatient (IN) | payer OTHER ==
[~2019-06-16] VITALS: Ht 193 cm; Wt 108.9 kg
[~2019-06-16 23:15] MED LIST changes: +ASPI-999 PO; +CLOP75TA28 PO; +DULO30CA3 PO; -DULO30CA48 PO; +DULO30CA49 PO; +ENAL5TAB PO; +NITR0.4T39 SL; +PANT40TA2 PO; +RANO500T3 PO; -ROSU10TA27 PO; +ROSU10TA28 PO
[2019-06-16] MEDS ORDERED: NS IV 500 ML 500 ML ONE (23:19)
[2019-06-16] MEDS ORDERED: ASPIRIN 81 MG CHEW (CHILDREN'S ASA) ONE (23:21)
[2019-06-16] MEDS ORDERED: NS IV 500 ML 500 ML IV ONE (23:25)
[2019-06-16] MEDS ORDERED: ASPIRIN 81 MG CHEW (CHILDREN'S ASA) PO ONE (23:30)
[2019-06-16 23:31] LABS: BASOPHILS % (AUTO) 0 % (0-10); EOSINOPHILS # (AUTO) 0.1 10^3/uL (0.0-0.3); EOSINOPHILS % (AUTO) 1 % (0-10); HEMATOCRIT 42 % (40-54); HEMOGLOBIN 14.9 G/DL (13.3-17.7); LYMPHOCYTES # (AUTO) 3.4 X 10^3 (1.0-4.0); LYMPHOCYTES % (AUTO) 29 % (12-44); MEAN CORPUSCULAR HEMOGLOBIN 31 PG (25-34); MEAN CORPUSCULAR HGB CONC 36 G/DL (32-36); MEAN CORPUSCULAR VOLUME 86 FL (80-99); MEAN PLATELET VOLUME 10.8 FL (7.4-10.4); MONOCYTES # (AUTO) 1.1 X 10^3 (0.0-1.0); MONOCYTES % (AUTO) 10 % (0-12); NEUTROPHILS # (AUTO) 7.2 X 10^3 (1.8-7.8); NEUTROPHILS % (AUTO) 61 % (42-75); PLATELET COUNT 193 10^3/uL (130-400); RED CELL DISTRIBUTION WIDTH 13.6 % (10.0-14.5); WHITE BLOOD COUNT 11.7 10^3/uL (4.3-11.0)
[2019-06-16 23:40] LABS: INR 0.9 (0.8-1.4); PROTHROMBIN TIME PATIENT 12.4 SEC (12.2-14.7)
[2019-06-16] MEDS ORDERED: ONDANSETRON 4 MG/2 ML (SDV) Z0FRAN IVP ONE (23:45)
[2019-06-16] MEDS ORDERED: morphine INJ 10 MG/ML 1ML (SYR OR VIAL) IVP ONE (23:45)
[2019-06-16 23:48] LABS: BILIRUBIN,TOTAL 1.3 MG/DL (0.1-1.0); CALCIUM 9.8 MG/DL (8.5-10.1); CREATININE SERUM 1.97 MG/DL (0.60-1.30); MAGNESIUM 1.9 MG/DL (1.8-2.4); TOTAL PROTEIN 7.4 GM/DL (6.4-8.2)
--- NOTE | 2019-06-16 23:54 | ED Chest Pain ---
General Chief Complaint: Chest Pain Stated Complaint: CP,POSS HEAT STROKE Source: patient Exam Limitations: no limitations History of Present Illness Date Seen by Provider: Jun 16, 2019 Time Seen by Provider: 23:26 Initial Comments Here with report of left-sided chest pain that radiates to his back that is persistent and feels like when he had his heart attack last year. He did get stent at that time and has been on Plavix and aspirin since. Had another event in April and had heart catheter at that time which showed patent stent. Similar presentation to this. He was monitored and medically managed without event. 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 He also had a cow that was trying to cavity is trying to move it up to the barn but they couldn't get her up there. He did exert himself and did get overheated. Complains of significant pain and nausea now on since for an hour or 2. Denies vomiting. Does complain of weakness. Timing/Duration: 1-3 hours, getting worse Severity/Quality: moderate, severe, aching, pressure Location: central Radiation: back Activities at Onset: activity Prior CP/Workup: cardiac cath, echocardiography, heart attack Modifying Factors: improves with rest ASA po CUSHION SEWER: Yes NTG SL CUSHION SEWER: Yes Associated Symptoms: No abdominal pain; back pain, diaphoresis, fatigue; No fever/chills; nausea/vomiting; No shortness of breath; weakness Allergies and Home Medications Allergies Coded Allergies: linezolid (Verified Allergy, Unknown, 05/28/18) Home Medications Acetaminophen 500 Mg Tablet, 1,000 MG PO HS, (Reported) TAKES 2 (500MG) TABLETS Aspirin 81 Mg Tab.chew, 81 MG PO DAILY Prescribed by: ROSA WHEATLEY on 04/28/19 09 Atorvastatin Calcium 80 Mg Tablet, 80 MG PO DAILY, (Reported) Carvedilol 6.25 Mg Tablet, 6.25 MG PO BID Prescribed by: ROSA WHEATLEY on 04/28/19 09 Clonazepam 1 Mg Tablet, 2 MG PO HS, (Reported) TAKES 2 (1 MG) TABLETS Clopidogrel Bisulfate 75 Mg Tablet, 75 MG PO DAILY Prescribed by: ROSA WHEATLEY on 04/28/19 09 Duloxetine HCl 30 Mg Capsule.dr, 30 MG PO BID Prescribed by: NAKUL GIRON on 04/27/19 1247 Enalapril Maleate 5 Mg Tablet, 5 MG PO BID Prescribed by: ROSA WHEATLEY on 04/28/19 09 Insulin Aspart 300 Units/3 Ml Solution, 10 UNITS SC TIDAC, (Reported) Insulin Degludec 200 Unit/1 Ml Insuln.pen, 50 UNITS SC DAILY, (Reported) Multivitamin 1 Each Tablet, 1 TAB PO DAILY, (Reported) Nitroglycerin 0.4 Mg Tab.subl, 0.4 MG SL UD PRN for CHEST PAIN, (Reported) Pantoprazole Sodium 40 Mg Tablet.dr, 40 MG PO DAILY Prescribed by: NAKUL GIRON on 04/27/19 124 Pregabalin 50 Mg Capsule, 50 MG PO HS, (Reported) Ranolazine 500 Mg Tab.er.12h, 500 MG PO BID Prescribed by: ROSA WHEATLEY on 04/28/19940 Patient Home Medication List Home Medication List Reviewed: Yes Review of Systems Review of Systems Constitutional: see HPI, chills; No fever; malaise, weakness EENTM: No Symptoms Reported Respiratory: No Symptoms Reported; Denies Cough; Shortness of Air Cardiovascular: Chest Pain; Denies Edema; Lightheadedness Gastrointestinal: Nausea; Denies Vomiting Genitourinary: No Symptoms Reported Musculoskeletal: no symptoms reported Skin: no symptoms reported Psychiatric/Neurological: No Symptoms Reported All Other Systems Reviewed Negative Unless Noted: Yes Past Lgybfzx-Cwjeeu-Rmpdpf Hx Past Med/Social Hx: Reviewed Nursing Past Med/Soc Hx Patient Social History Alcohol Use: Denies Use Recreational Drug Use: No Smoking Status: Never a Smoker 2nd Hand Smoke Exposure: No Recent Foreign Travel: No Contact w/Someone Who Travel: No Recent Hopitalizations: Yes (JANUARY 2019 HEART STENT) Immunizations Up To Date Tetanus Booster (TDap): Unknown PED Vaccines UTD: No Date of Pneumonia Vaccine: Jan 02, 2011 Date of Influenza Vaccine: Aug 07, 2018 Seasonal Allergies Seasonal Allergies: No Past Medical History Surgeries: Yes (ACL; Wrist; Heart stents) Abdominal, Amputation, Appendectomy, Gallbladder, Orthopedic, Tonsillectomy Respiratory: No Currently Using CPAP: No Currently Using BIPAP: No Cardiac: Yes (Heart stents) Coronary Artery Disease, Heart Attack, High Cholesterol, Hypertension Neurological: Yes Neuropathy, Stroke Reproductive Disorders: No Sexually Transmitted Disease: No HIV/AIDS: No Genitourinary: No Kidney Stones Gastrointestinal: Yes Abdominal Hernia Musculoskeletal: Yes (OSTEOMYELITIS WITH MULTIPLE TOE AMPUTATIONS, BACK FUSION X3) Degenerate Disk Disease, Arthritis, Chronic Back Pain Endocrine: Yes Diabetes, Insulin dep HEENT: No Loss of Vision: Denies Hearing Impairment: Denies Cancer: No Psychosocial: Yes Anxiety, Depression Integumentary: No Blood Disorders: No Adverse Reaction/Blood Tranf: No Family Medical History Reviewed Nursing Family Hx Family history: Cardiovascular disease 19 FATHER Family history: Diabetes mellitus 19 MOTHER Heart Disease, COPD, Diabetes, Hypertension, Psychiatric Problems, Renal Disease, Vascular Disease Physical Exam Vital Signs Vital Signs - First Documented 06/16/19 23:21 Temp 96.1 Pulse 114 Resp 22 B/P (MAP) 83/71 (75) Pulse Ox 99 O2 Delivery Room Air Capillary Refill : Height, Weight, BMI Height: 6'2.00" Weight: 247lbs. 7.0oz. 112.137344of; 28.8 BMI Method:Stated General Appearance: WD/WN, Anxious, Moderate Distress Neck: Non Tender, Supple Respiratory: Lungs Clear, Normal Breath Sounds Cardiovascular: No Murmur, Tachycardia Gastrointestinal: Non Tender, Soft Extremity: Normal Range of Motion, Non Tender Neurologic/Psychiatric: Alert, Oriented x3 Skin: Normal Color, Warm/Dry Progress/Results/Core Measures Results/Orders Lab Results Laboratory Tests Test 06/16/19 23:24 Range/Units White Blood Count 11.7 H 4.3-11.0 10^3/uL Red Blood Count 4.87 4.35-5.85 10^6/uL Hemoglobin 14.9 13.3-17.7 G/DL Hematocrit 42 40-54 % Mean Corpuscular Volume 86 80-99 FL Mean Corpuscular Hemoglobin 31 25-34 PG Mean Corpuscular Hemoglobin Concent 36 32-36 G/DL Red Cell Distribution Width 13.6 10.0-14.5 % Platelet Count 193 130-400 10^3/uL Mean Platelet Volume 10.8 H 7.4-10.4 FL Neutrophils (%) (Auto) 61 42-75 % Lymphocytes (%) (Auto) 29 12-44 % Monocytes (%) (Auto) 10 0-12 % Eosinophils (%) (Auto) 1 0-10 % Basophils (%) (Auto) 0 0-10 % Neutrophils # (Auto) 7.2 1.8-7.8 X 10^3 Lymphocytes # (Auto) 3.4 1.0-4.0 X 10^3 Monocytes # (Auto) 1.1 H 0.0-1.0 X 10^3 Eosinophils # (Auto) 0.1 0.0-0.3 10^3/uL Basophils # (Auto) 0.0 0.0-0.1 10^3/uL Prothrombin Time 12.4 12.2-14.7 SEC INR Comment 0.9 0.8-1.4 Activated Partial Thromboplast Time 28 24-35 SEC Sodium Level 136 135-145 MMOL/L Potassium Level 4.0 3.6-5.0 MMOL/L Chloride Level 101 98-107 MMOL/L Carbon Dioxide Level 16 L 21-32 MMOL/L Anion Gap 19 H 5-14 MMOL/L Blood Urea Nitrogen 26 H 7-18 MG/DL Creatinine 1.97 H 0.60-1.30 MG/DL Estimat Glomerular Filtration Rate 35 BUN/Creatinine Ratio 13 Glucose Level 212 H 70-105 MG/DL Calcium Level 9.8 8.5-10.1 MG/DL Corrected Calcium 9.8 8.5-10.1 MG/DL Magnesium Level 1.9 1.8-2.4 MG/DL Total Bilirubin 1.3 H 0.1-1.0 MG/DL Aspartate Amino Transf (AST/SGOT) 20 5-34 U/L Alanine Aminotransferase (ALT/SGPT) 39 0-55 U/L Alkaline Phosphatase 104 40-136 U/L Myoglobin 246.3 H 10.0-92.0 NG/ML Troponin I 0.052 H <0.028 NG/ML Total Protein 7.4 6.4-8.2 GM/DL Albumin 4.0 3.2-4.5 GM/DL My Orders Orders - VJ FONTANEZ MD Cbc With Automated Diff (06/16/19 23:25) Magnesium (06/16/19 23:25) Chest 1 View, Ap/Pa Only (06/16/19 23:25) Ekg Tracing (06/16/19 23:25) Cardiac Profile 1 (06/16/19 23:25) Comprehensive Metabolic Panel (06/16/19 23:25) Myoglobin Serum (06/16/19 23:25) Protime With Inr (06/16/19 23:25) Partial Thromboplastin Time (06/16/19 23:25) O2 (06/16/19 23:25) Monitor-Rhythm Ecg Trace Only (06/16/19 23:25) Lipid Panel (06/17/19 06:00) Ed Iv/Invasive Line Start (06/16/19 23:25) Aspirin Chewable Tablet (Baby Aspirin Ch (06/16/19 23:30) Ed Iv/Invasive Line Start (06/16/19 23:25) Ns Iv 500 Ml (Sodium Chloride 0.9%) (06/16/19 23:25) Ns Iv 500 Ml (Sodium Chloride 0.9%) (06/16/19 23:19) Aspirin Chewable Tablet (Baby Aspirin Ch (06/16/19 23:21) Morphine Injection (Morphine Injection (06/16/19 23:45) Ed Iv/Invasive Line Start (06/16/19 23:33) Ondansetron Injection (Zofran Injectio (06/16/19 23:45) Ed Iv/Invasive Line Start (06/17/19 00:01) Ns Iv 1000 Ml (Sodium Chloride 0.9%) (06/17/19 00:01) Morphine Injection (Morphine Injection (06/17/19 00:15) Enoxaparin Injection (Lovenox Injection) (06/17/19 00:15) Fentanyl Injection (Sublimaze Injection (06/17/19 01:02) Ed Iv/Invasive Line Start (06/17/19 01:19) Ns Iv 500 Ml (Sodium Chloride 0.9%) (06/17/19 01:19) Medications Given in ED Current Medications Medications Dose Ordered Sig/Aylin Route Start Time Stop Time Status Last Admin Dose Admin Aspirin 324 mg ONCE ONCE PO 06/16/19 23:30 06/16/19 23:31 DC 06/16/19 23:30 324 MG Enoxaparin Sodium 110 mg ONCE ONCE SC 06/17/19 00:15 06/17/19 00:16 DC 06/17/19 00:30 110 MG Morphine Sulfate 2 mg ONCE ONCE IVP 06/16/19 23:45 06/16/19 23:46 DC 06/16/19 23:39 2 MG Morphine Sulfate 4 mg ONCE ONCE IVP 06/17/19 00:15 06/17/19 00:16 DC 06/17/19 00:10 4 MG Ondansetron HCl 4 mg ONCE ONCE IVP 06/16/19 23:45 06/16/19 23:46 DC 06/16/19 23:47 4 MG Sodium Chloride 500 ml @ 0 mls/hr Q0M ONCE IV 06/16/19 23:25 06/16/19 23:27 DC 06/16/19 23:27 0 MLS/HR Sodium Chloride 1,000 ml @ 0 mls/hr Q0M ONCE IV 06/17/19 00:01 06/17/19 00:03 DC 06/17/19 00:10 0 MLS/HR Vital Signs/I&O 06/16/19 06/16/19 23:21 23:21 Temp 96.1 Pulse 114 Resp 22 B/P (MAP) 83/71 (75) Pulse Ox 99 O2 Delivery Room Air Room Air 06/17/19 00:00 Intake Total 500 ml Balance 500 ml Progress Progress Note : Progress Note Seen and evaluated. IV, labs, EKG and chest x-ray ordered. ASA 324 mg by mouth ordered. Normal saline 500 mL bolus. We did add additionally morphine 2 mg IV and Zofran 4 mg IV for pain and nausea. I did review previous records including heart catheter in April. Monitor patient. 0002: I did discuss the case with Dr. Patel as patient's pain is persisting and he did have slight bump in his tr oponin. Pain is been going on for several hours so I would expect that it would be higher if this was full blockade admission and Dr. Patel agrees. He is recommending continuing hydration and Lovenox administration as well as pain control as needed. Consider nitroglycerin if blood pressure improved. I have ordered additional normal saline 1 L bolus. Monitor patient. 0132: I discussed the case with Dr. Ha. She says patient for admission, inpatient status due to the acute renal failure and persistent chest pain which is likely angina. Fentanyl 75 g IV ordered for persistent pain. Repeat normal saline 500 mL bolus and will continue that inpatient. Findings concerns discussed with patient and family who agree with plan. Admit inpatient status. Initial ECG Impression Date: Jun 16, 2019 Initial ECG Impression Time: 23:21 Initial ECG Rate: 113 Initial ECG Rhythm: S.Tach Comment Sinus tachycardia with left axis deviation. No evidence of ST elevation MT. Similar to previous but increasing left axis from 04/24/19. Interpreted by me. Diagnostic Imaging Diagonstic Imaging: Xray Plain Films/CT/US/NM/MRI: chest Comments No acute findings Reviewed: Reviewed by Me Departure Communication (Admissions) Time/Spoke to Admitting Phy: 01:22 Time/Spoke to Consulting Phy: 00:02 Impression Primary Impression: Chest pain Qualified Codes: R07.9 - Chest pain, unspecified Additional Impression: Acute renal failure Qualified Codes: N17.9 - Acute kidney failure, unspecified Disposition: ADMITTED INPATIENT Condition: Stable Admissions Decision to Admit Reason: Admit from ER (General) Decision to Admit/Date: Jun 17, 2019 Time/Decision to Admit Time: 00:02 Departure-Patient Inst. Referrals: ROSA MARIA HA MD (PCP/Family) Primary Care Physician VJ FONTANEZ MD Jun 16, 2019 23:54
[2019-06-17] MEDS ORDERED: NS IV 1000 ML 1,000 ML IV ONE (00:01)
[2019-06-17] MEDS ORDERED: morphine INJ 10 MG/ML 1ML (SYR OR VIAL) IVP ONE (00:15)
[2019-06-17] MEDS ORDERED: ENOXAPARIN 100 MG/1 ML (LOVENOX) SYR SC ONE (00:15)
[2019-06-17] MEDS ORDERED: D5 NS 1000 ML IV SOLUTION 1,000 ML IV STA (00:59)
[2019-06-17] MEDS ORDERED: fentaNYL INJECTION 100 MCG/2 ML AMP IVP STA (01:02)
[2019-06-17] MEDS ORDERED: NS IV 500 ML 500 ML IV ONE (01:19)
[2019-06-17] MEDS ORDERED: NS IV 1000 ML 1,000 ML ONE (02:29)
[2019-06-17] MEDS ORDERED: NS IV 1000 ML 1,000 ML IV SCH ×2 (02:45→04:00)
--- NOTE | 2019-06-17 03:00 | NUR ---
LUIS BARRERA admitted to room 411-1, with an admitting diagnosis of ACUTE RENAL FAILURE AND CP, on 06/17/19 from ER via WHEELCHAIR, accompanied by STAFF. LUIS BARRERA introduced to surroundings, call light, bed controls, phone, TV, temperature control, lights, meal times, smoking policy, visitor policy, side rail policy, bathrooms and showers. Patient Rights given to patient in the handbook. LUIS BARRERA verbalizes understanding that [facility] is not responsible for the loss or damage to any personal effects or valuables that are kept in the patients posession during their hospitalization.
[2019-06-17 03:10] VITALS: BP 99/62
[2019-06-17] MEDS ORDERED: morphine INJ 4 MG/ML 1 ML (VIAL/SYRINGE) IV PRN (04:00)
[2019-06-17] MEDS ORDERED: fentaNYL INJECTION 100 MCG/2 ML AMP IV PRN (04:00)
[2019-06-17 04:51] VITALS: BP 99/62
--- NOTE | 2019-06-17 05:53 | Diagnostic Imaging Report ---
EXAMINATION: Portable erect AP chest at 1145 PM INDICATION: Chest pain FINDINGS: The heart size is within normal limits and stable when compared to 04/25/2019. The lungs are clear. There is no evidence for failure, pneumonia, or for pleural effusion. Mediastinum is not widened. The osseous structures are intact. IMPRESSION: There is no evidence for an acute cardiopulmonary abnormality. Dictated on workstation # [id number]
[2019-06-17 07:14] LABS: BASOPHILS % (AUTO) 0 % (0-10); EOSINOPHILS # (AUTO) 0.1 10^3/uL (0.0-0.3); EOSINOPHILS % (AUTO) 1 % (0-10); HEMATOCRIT 38 % (40-54); LYMPHOCYTES # (AUTO) 2.6 X 10^3 (1.0-4.0); LYMPHOCYTES % (AUTO) 34 % (12-44); MEAN CORPUSCULAR HEMOGLOBIN 31 PG (25-34); MEAN CORPUSCULAR HGB CONC 34 G/DL (32-36); MEAN CORPUSCULAR VOLUME 89 FL (80-99); MEAN PLATELET VOLUME 11.5 FL (7.4-10.4); MONOCYTES # (AUTO) 0.8 X 10^3 (0.0-1.0); MONOCYTES % (AUTO) 10 % (0-12); NEUTROPHILS # (AUTO) 4.1 X 10^3 (1.8-7.8); NEUTROPHILS % (AUTO) 55 % (42-75); PLATELET COUNT 132 10^3/uL (130-400); RED CELL DISTRIBUTION WIDTH 13.8 % (10.0-14.5); WHITE BLOOD COUNT 7.6 10^3/uL (4.3-11.0)
[2019-06-17 07:34] LABS: ALBUMIN 3.4 GM/DL (3.2-4.5); BILIRUBIN,TOTAL 1.3 MG/DL (0.1-1.0); CALCIUM 8.5 MG/DL (8.5-10.1); CREATININE SERUM 1.78 MG/DL (0.60-1.30); POTASSIUM 4.2 MMOL/L (3.6-5.0); TOTAL PROTEIN 6.2 GM/DL (6.4-8.2)
[2019-06-17] MEDS: NITROGLYCERIN 0.4 MG SL TABS BTL 25'S SL PRN ×3 (07:56→08:09)
[2019-06-17 08:00] VITALS: BP 124/78
[2019-06-17] MEDS ORDERED: ASPIRIN E.C. 81 MG (ECOTRIN) TAB PO SCH (09:00)
--- NOTE | 2019-06-17 09:02 | History & Physicial ---
History of Present Illness History of Present Illness Date of Admission Jun 17, 2019 at 01:27 I consulted on this patient on 06/17/19 09:02 Attending Physician Rosa Maria Ha MD Admitting Physician Rosa Maria Ha MD Consult Allergies and Home Medications Allergies Coded Allergies: linezolid (Verified Allergy, Unknown, 06/17/19) Home Medications Acetaminophen 500 Mg Tablet, 1,000 MG PO HS, (Reported) TAKES 2 (500MG) TABLETS Aspirin 81 Mg Tab.chew, 81 MG PO DAILY Prescribed by: ROSA WHEATLEY on 04/28/19940 Atorvastatin Calcium 80 Mg Tablet, 80 MG PO DAILY, (Reported) Carvedilol 6.25 Mg Tablet, 6.25 MG PO BID Prescribed by: ROSA WHEATLEY on 04/28/19940 Clonazepam 1 Mg Tablet, 2 MG PO HS, (Reported) TAKES 2 (1 MG) TABLETS Clopidogrel Bisulfate 75 Mg Tablet, 75 MG PO DAILY Prescribed by: ROSA WHEATLEY on 04/28/19940 Duloxetine HCl 30 Mg Capsule.dr, 30 MG PO BID Prescribed by: NAKUL GIRON on 04/27/191246 Enalapril Maleate 5 Mg Tablet, 5 MG PO BID Prescribed by: ROSA WHAETLEY on 04/28/19940 Insulin Aspart 300 Units/3 Ml Solution, 10 UNITS SC TIDAC, (Reported) Insulin Degludec 200 Unit/1 Ml Insuln.pen, 50 UNITS SC DAILY, (Reported) Multivitamin 1 Each Tablet, 1 TAB PO DAILY, (Reported) Nitroglycerin 0.4 Mg Tab.subl, 0.4 MG SL UD PRN for CHEST PAIN, (Reported) Pantoprazole Sodium 40 Mg Tablet.dr, 40 MG PO DAILY Prescribed by: NAKUL GIRON on 04/27/191246 Pregabalin 50 Mg Capsule, 50 MG PO HS, (Reported) Ranolazine 500 Mg Tab.er.12h, 500 MG PO BID Prescribed by: ROSA WHEATLEY on 04/28/19940 Past Cobzqbw-Jtljys-Yfvyat Hx Patient Social History Alcohol Use: Denies Use Recreational Drug Use: No Smoking Status: Never a Smoker 2nd Hand Smoke Exposure: No Recent Foreign Travel: No Contact w/other who traveled: Yes Recent Hopitalizations: Yes (JANUARY 2019 HEART STENT) Recent Infectious Disease Expo: No Immunizations Up To Date Tetanus Booster (TDap): Unknown Pediatric: No Date of Pneumonia Vaccine: Jan 02, 2011 Date of Influenza Vaccine: Aug 07, 2018 Seasonal Allergies Seasonal Allergies: No Surgeries Yes (ACL; Wrist; Heart stents) Abdominal, Amputation, Appendectomy, Gallbladder, Orthopedic, Tonsillectomy Respiratory No Currently Using CPAP: No Currently Using BIPAP: No Cardiovascular Yes (Heart stents) Coronary Artery Disease, Heart Attack, High Cholesterol, Hypertension Neurological Yes Neuropathy, Stroke Reproductive System Hx Reproductive Disorders: No Sexually Transmitted Disease: No HIV/AIDS: No Genitourinary No Kidney Stones Gastrointestinal Yes Abdominal Hernia Musculoskeletal Yes (OSTEOMYELITIS WITH MULTIPLE TOE AMPUTATIONS, BACK FUSION X3) Degenerate Disk Disease, Arthritis, Chronic Back Pain Endocrine History of Endocrine Disorders: Yes Endocrine Disorders: Diabetes, Insulin dep HEENT History of HEENT Disorders: No Loss of Vision: Denies Hearing Impairment: Denies Cancer No Psychosocial History of Psychiatric Problem: Yes Behavioral Health Disorders: Anxiety, Depression Integumentary History of Skin or Integumenta: No Blood Transfusions History of Blood Disorders: No Adverse Reaction to a Blood Tr: No Family Medical History Significant Family History: Heart Disease, COPD, Diabetes, Hypertension, Psychiatric Problems, Renal Disease, Vascular Disease Family Hx: Family history: Cardiovascular disease 19 FATHER Family history: Diabetes mellitus 19 MOTHER Physical Exam Vital Signs Vital Signs - First Documented 06/16/19 06/17/19 23:21 01:15 Temp 96.1 Pulse 114 Resp 22 B/P (MAP) 83/71 (75) Pulse Ox 99 O2 Delivery Room Air O2 Flow Rate 2.00 Capillary Refill : Less Than 3 Seconds Height, Weight, BMI Height: 6'4.00" Weight: 240lbs. 3.0oz. 108.024983vg; 29.5 BMI Method:Stated Clinical Quality Measures AMI/AHF: ASA po Prior to arrival: Yes DVT/VTE Risk/Contraindication: Risk Factor Score Per Nursin RFS Level Per Nursing on Admit: 4+=Very High ROSA MARIA HA MD Jun 17, 2019 09:02
[2019-06-17] MEDS ORDERED: CLOP75TA69 PO (09:04)
[2019-06-17] MEDS ORDERED: RANO500T5 PO (09:04)
[2019-06-17] MEDS ORDERED: ASPI-999 PO (09:04)
[2019-06-17] MEDS ORDERED: DOXY100C2 PO (09:04)
[2019-06-17] MEDS ORDERED: ENAL5TAB PO (09:04)
--- NOTE | 2019-06-17 09:33 | Cardiology History & Physical ---
HPI-Cardiology Cardiology Consultation Date of Consultation 06/17/19 Date of Admission Time Seen by Provider: 09:27 Indication: chest pain HPI 58 years old gentleman with extensive history of coronary artery disease, was working outside yesterday and started to have chest pain described it as dull in nature in the retrosternal area radiating to the back and left shoulder and arm. Continue to the hospital was in worsening renal failure, dehydrated, borderline hypotensive, responded to IV fluid with his blood pressure but continue to have waxing and waning chest pain, had slight elevation in troponin level. 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 that is the cause of his recurrent chest pain PMH-Cardiology Immunizations Up To Date Tetanus Booster (DTap): Unknown Date of Pneumonia Vaccine: Jan 02, 2011 Date of Influenza Vaccine: Aug 07, 2018 Seasonal Allergies Seasonal Allergies: No Surgeries Yes (ACL; Wrist; Heart stents) Abdominal Respiratory No Cardiovascular Yes (Heart stents) Heart Attack, High Cholesterol, Hypertension, Coronary Artery Disease Neurological Yes Neuropathy, Stroke Reproductive System Hx Reproductive Disorders: No Sexually Transmitted Disease: No HIV/AIDS: No Genitourinary No Kidney Stones Gastrointestinal Yes Abdominal Hernia Musculoskeletal Yes (OSTEOMYELITIS WITH MULTIPLE TOE AMPUTATIONS, BACK FUSION X3) Degenerate Disk Disease, Arthritis, Chronic Back Pain Endocrine Yes Diabetes, Insulin dep HEENT No Loss of Vision: Denies Hearing Impairment: Denies Cancer No Psychosocial Yes Anxiety, Depression Integumentary No Blood Transfusions No Adverse Rxn to Transfusion: No Social History Patient Social History Marrital Status: Employed/Student: employed Alcohol Use: Denies Use Recreational Drug Use: No Dip or chew tobacco?: No Recent Foreign Travel: No Contact w/other who traveled: Yes Recent Infectious Disease Expo: No Family Hx Significant Family History: Heart Disease, COPD, Diabetes, Hypertension, Psychiatric Problems, Renal Disease, Vascular Disease Family History: Family history: Cardiovascular disease 19 FATHER Family history: Diabetes mellitus 19 MOTHER ROS-Cardiology Review of Systems General: No Chills, No Night Sweats, No Fatigue, No Malaise, No Appetite HEENT: No Head Aches, No Visual Changes, No Eye Pain, No Ear Pain, No Dysphasia, No Sinus Congestion, No Post Nasal Drip, No Sore Throat Pulmonary: Dyspnea; No Cough, No Pleuritic Chest Pain Cardiovascular: Chest Pain; No: Palpitations, Orthopnea, Paroxysmal Noc. Dyspnea, Edema, Lt Headedness Gastrointestinal: No: Nausea, Vomiting, Abdominal Pain, Diarrhea, Constipation, Melena, Hematochezia Genitourinary: No Dysuria, No Frequency, No Incontinence, No Hematuria, No Retention Musculoskeletal: No: neck pain, shoulder pain, arm pain, back pain, hand pain, leg pain, foot pain Neurological: No: Weakness, Numbness, Incoordination, Change in speech, Confusion, Seizures Home Medications & Allergies Allergies: Coded Allergies: linezolid (Verified Allergy, Unknown, 06/17/19) Home Medication List Reviewed: Yes Exam-Cardiology Vital Signs Vital Signs Date Time Temp Pulse Resp B/P (MAP) Pulse Ox O2 Delivery O2 Flow Rate FiO2 06/17/19 08:00 98.7 87 18 124/78 (93) 100 Room Air 06/17/19 04:51 2.00 Exam General Appearance: Alert, Oriented X3, Cooperative, No Acute Distress HEENT: Atraumatic, PERRLA Respiratory: Clear to Auscultation, Normal Air Movement Cardiovascular: Regular Rate, Normal S1, Normal S2, No Murmurs Abdominal: Normal Bowel Sounds, Soft, No Tenderness, No Hepatosplenomegaly, No Masses Extremities: No Clubbing, No Cyanosis, No Edema, Normal Pulses, No Tender ness/Swelling Skin: No Rashes, No Breakdown, No Significant Lesion Neuro: Normal Gait, Normal Speech, Strength at 5/5 X4 Ext, Normal Tone, Sensation Intact Psych/Mental Status: Mental Status NL, Mood NL Results Labs Labs Laboratory Tests 06/16/19 23:24: White Blood Count 11.7H, Red Blood Count 4.87, Hemoglobin 14.9, Hematocrit 42, Mean Corpuscular Volume 86, Mean Corpuscular Hemoglobin 31, Mean Corpuscular Hemoglobin Concent 36, Red Cell Distribution Width 13.6, Platelet Count 193, Mean Platelet Volume 10.8H, Neutrophils (%) (Auto) 61, Lymphocytes (%) (Auto) 29, Monocytes (%) (Auto) 10, Eosinophils (%) (Auto) 1, Basophils (%) (Auto) 0, Neutrophils # (Auto) 7.2, Lymphocytes # (Auto) 3.4, Monocytes # (Auto) 1.1H, Eosinophils # (Auto) 0.1, Basophils # (Auto) 0.0, Prothrombin Time 12.4, INR Comment 0.9, Activated Partial Thromboplast Time 28, Sodium Level 136, Potassium Level 4.0, Chloride Level 101, Carbon Dioxide Level 16L, Anion Gap 19H, Blood Urea Nitrogen 26H, Creatinine 1.97H, Estimat Glomerular Filtration Rate 35, BUN/Creatinine Ratio 13, Glucose Level 212H, Calcium Level 9.8, Corrected Calcium 9.8, Magnesium Level 1.9, Total Bilirubin 1.3H, Aspartate Amino Transf (AST/SGOT) 20, Alanine Aminotransferase (ALT/SGPT) 39, Alkaline Phosphatase 104, Myoglobin 246.3H, Troponin I 0.052H, Total Protein 7.4, Albumin 4.0 06/17/19 05:36: White Blood Count 7.6, Red Blood Count 4.26L, Hemoglobin 13.0L, Hematocrit 38L, Mean Corpuscular Volume 89, Mean Corpuscular Hemoglobin 31, Mean Corpuscular Hemoglobin Concent 34, Red Cell Distribution Width 13.8, Platelet Count 132, Mean Platelet Volume 11.5H, Neutrophils (%) (Auto) 55, Lymphocytes (%) (Auto) 34, Monocytes (%) (Auto) 10, Eosinophils (%) (Auto) 1, Basophils (%) (Auto) 0, Neutrophils # (Auto) 4.1, Lymphocytes # (Auto) 2.6, Monocytes # (Auto) 0.8, Eosinophils # (Auto) 0.1, Basophils # (Auto) 0.0, Sodium Level 141, Potassium Level 4.2, Chloride Level 105, Carbon Dioxide Level 22, Anion Gap 14, Blood Urea Nitrogen 26H, Creatinine 1.78H, Estimat Glomerular Filtration Rate 40, BUN/Creatinine Ratio 15, Glucose Level 227H, Calcium Level 8.5, Corrected Calcium 9.0, Total Bilirubin 1.3H, Aspartate Amino Transf (AST/SGOT) 38H, Alanine Aminotransferase (ALT/SGPT) 48, Alkaline Phosphatase 91, Troponin I 0. 063H, Total Protein 6.2L, Albumin 3.4 A/P-Cardiology Admission Diagnosis Unstable angina Non-ST elevation myocardial infarction Coronary artery disease Hyperlipidemia Admission Status: Inpatient Order (span 2 midnights) Reason for Inpatient Admission: non-ST elevation myocardial infarction Assessment/Plan Unstable angina, non-ST elevation myocardial infarction secondary to coronary artery disease Coronary artery disease, multivessel disease, had a stent to the LAD done in May 2018 in [facility], stent to the second obtuse marginal branch, stent to the distal right coronary artery done in December 2018, heart catheterization done in April 2019 showed patent stent with chronically occluded first obtuse marginal branch. Still having recurrent chest pain, has slight elevation in troponin, discussed the management plan recommended cardiac catheterization in a tertiary care center, discussed with Dr. Rose lower except that the patient and we will arrange for transfer. Congestive heart failure, chronic compensated left ventricular systolic dysfunction, ischemic cardiomyopathy, heart function has improved, last echo in April 2019 showed ejection fraction 50-55 percent with moderate to severe dilatation of the left atrium Acute on chronic renal insufficiency, improving with IV fluid, continue to monitor Hypertension, episodes of hypotension, better at this time Hyperlipidemia, continue on current medication monitor next Diabetes mellitus, followed and managed by primary care physician Hospital course: Patient was monitored overnight, improvement in his renal function, continue on IV fluid, arrangement to transfer him to [facility] with Dr. Rose for evaluation of the chronic total occlusion. Next Final diagnosis Unstable angina Non-ST elevation Mccartan infarction Coronary artery disease Hyperlipidemia Clinical Quality Measures AMI/AHF: ASA po Prior to arrival: Yes DVT/VTE Risk/Contraindication: Risk Factor Score Per Nursin RFS Level Per Nursing on Admit: 4+=Very High JONH MARIA MD Jun 17, 2019 09:33
--- NOTE | 2019-06-17 09:49 | NUR ---
SPOKE WITH THE PATIENT ABOUT HIS MEDICATIONS. WE WENT OVER THE EXT MED HX AND HE VERIFIED HOW HE TAKES THEM. HE IS TAKING 1/2 TAB OF ENALAPRIL BID INSTEAD OF 1 WHOLE TABLET BID. HE STATES HE IS NO LONGER TAKING LATUDA, COREG, OR PROTONIX. HE TAKES A MTV DAILY AND 2 TYLENOL HS OTC.
== END 2019-06-17 11:30 | disposition short-term general hospital (02) | DRG 281 ==
LOC: EDUNIT# 23:15 → ER 23:17 → 4TH 06-17 01:27
PROVIDERS: ADMIT Family Medicine; ATTEND Family Medicine
DX: I21.4 Non-ST elevation (NSTEMI) myocardial infarction (principal); I25.110 Atherosclerotic heart disease of native coronary artery with unstable angina pectoris; I25.82 Chronic total occlusion of coronary artery; N17.9 Acute kidney failure, unspecified; E86.0 Dehydration; I25.5 Ischemic cardiomyopathy; I13.0 Hypertensive heart and chronic kidney disease with heart failure and stage 1 through stage 4 chronic kidney disease, or unspecified chronic kidney disease; I50.22 Chronic systolic (congestive) heart failure; N18.9 Chronic kidney disease, unspecified; E11.40 Type 2 diabetes mellitus with diabetic neuropathy, unspecified; Z79.4 Long term (current) use of insulin; F41.9 Anxiety disorder, unspecified; F32.9 Major depressive disorder, single episode, unspecified; E78.5 Hyperlipidemia, unspecified; I25.2 Old myocardial infarction; Z95.5 Presence of coronary angioplasty implant and graft; Z86.73 Personal history of transient ischemic attack (TIA), and cerebral infarction without residual deficits; Z98.1 Arthrodesis status; Z79.02 Long term (current) use of antithrombotics/antiplatelets; Z79.82 Long term (current) use of aspirin
CPT/HCPCS: 36415; 71045; 80053; 83735; 83874; 84484; 85025; 85610; 85730; 93005; 93041

== ENCOUNTER 2019-07-09 12:11 | Emergency (ER) | payer OTHER ==
[~2019-07-09] VITALS: Ht 193 cm; Wt 108.9 kg
[~2019-07-09 12:11] MED LIST changes: +DOXY100C2 PO; +RANO500T5 PO
[2019-07-09 12:39] LABS: BASOPHILS % (AUTO) 0 % (0-10); EOSINOPHILS # (AUTO) 0.1 10^3/uL (0.0-0.3); EOSINOPHILS % (AUTO) 1 % (0-10); HEMATOCRIT 42 % (40-54); HEMOGLOBIN 14.4 G/DL (13.3-17.7); LYMPHOCYTES # (AUTO) 1.7 X 10^3 (1.0-4.0); LYMPHOCYTES % (AUTO) 27 % (12-44); MEAN CORPUSCULAR HEMOGLOBIN 31 PG (25-34); MEAN CORPUSCULAR HGB CONC 34 G/DL (32-36); MEAN CORPUSCULAR VOLUME 90 FL (80-99); MEAN PLATELET VOLUME 10.3 FL (7.4-10.4); MONOCYTES # (AUTO) 0.4 X 10^3 (0.0-1.0); MONOCYTES % (AUTO) 7 % (0-12); NEUTROPHILS # (AUTO) 4.1 X 10^3 (1.8-7.8); NEUTROPHILS % (AUTO) 65 % (42-75); PLATELET COUNT 184 10^3/uL (130-400); RED CELL DISTRIBUTION WIDTH 14.2 % (10.0-14.5); WHITE BLOOD COUNT 6.4 10^3/uL (4.3-11.0)
[2019-07-09 12:51] LABS: FIBRIN DEGRADATION PRODUCTS 0.97 UG/ML (0.00-0.49); INR 0.9 (0.8-1.4); PROTHROMBIN TIME PATIENT 12.9 SEC (12.2-14.7)
[2019-07-09 12:55] LABS: BUN/CREATININE RATIO 13; CARBON DIOXIDE 29 MMOL/L (21-32); CHLORIDE 104 MMOL/L (98-107); CREATININE SERUM 1.03 MG/DL (0.60-1.30); SODIUM 139 MMOL/L (135-145)
[2019-07-09 12:56] LABS: ALANINE AMINOTRANSFERASE 32 U/L (0-55); ALBUMIN 3.8 GM/DL (3.2-4.5); ALKALINE PHOSPHATASE 90 U/L (40-136); BILIRUBIN,TOTAL 1.3 MG/DL (0.1-1.0); GFR ESTIMATED > 60; GLUCOSE 189 MG/DL (70-105)
--- NOTE | 2019-07-09 13:01 | Diagnostic Imaging Report ---
CLINICAL INDICATION: Patient with vision changes in right eye and headaches since last night. EXAM: Axial CT scan of the brain performed without IV contrast. COMPARISON: Head CT without contrast dated 03/10/2019. FINDINGS: There is no evidence of acute cerebral infarct, intracranial hemorrhage, or gross mass effect. The brain parenchymal volume appears appropriate for patient's age. There are subtle patchy areas of low-attenuation white matter changes involving both cerebral hemispheres, likely representing chronic small vessel ischemic disease. Stable small area of prominent perivascular space in the left sub-putamen region. There is normal jarrett-white matter distinction. There is no significant midline shift or herniation. There is no evidence of hydrocephalus. The basal cisterns are unremarkable. The skull, extracranial soft tissue, and orbits are unremarkable. There is mild ethmoid sinus mucosal thickening. Temporal bones show no significant abnormality. IMPRESSION: Stable CT scan of the brain with no evidence of acute intracranial process. Results of this report was discussed with Dr. Power Carr via the telephone on 07/09/2019 at 1258 hours. Dictated by: Dictated on workstation # [id number]
--- NOTE | 2019-07-09 13:04 | Diagnostic Imaging Report ---
INDICATION: Visual changes and headache. Frontal chest obtained at 12:43 p.m. and compared to 06/16/2019. FINDINGS: Heart is borderline enlarged. There is poor inspiration. Lungs are clear. There is no pneumothorax or pleural fluid. IMPRESSION: Borderline cardiomegaly with poor inspiration. No acute infiltrate or pleural fluid. Dictated by: Dictated on workstation # [id number]
[2019-07-09 13:52] LABS: BILIRUBIN,URINE NEGATIVE (NEGATIVE); CLARITY,URINE CLEAR; COLOR,URINE YELLOW; GLUCOSE, URINE (UA) 3+ (NEGATIVE); KETONES,URINE NEGATIVE (NEGATIVE); LEUKOCYTE ESTERASE ,URINE NEGATIVE (NEGATIVE); NITRITE,URINE NEGATIVE (NEGATIVE); PH,URINE 7 (5-9); PROTEIN,URINE 1+ (NEGATIVE); UROBILINOGEN,URINE NORMAL (NORMAL)
[2019-07-09 14:04] LABS: BACTERIA,URINE NEGATIVE /HPF
--- NOTE | 2019-07-09 14:14 | Diagnostic Imaging Report ---
Clinical indication: Patient with stroke symptoms. Comparison: Ultrasound of the carotid arteries dated 01/29/2017. Exam: Real-time carotid Doppler duplex imaging is performed bilaterally. Peak systolic velocity, ICA/CCA peak systolic ratio, spectral analysis, and vascular morphology are studied. Findings: ARTERY VELOCITY Right Left CCA 0.82 m/s 0.89 m/s ICA 0.88 m/s 0.79 m/s ECA 1.16 m/s 1.06 m/s ICA/CCA 1.07 0.89 VERT.ART Antegrade Antegrade There is no significant atherosclerotic disease of the bilateral carotid arteries. Impression: There is no grayscale or Doppler evidence of significant vascular stenosis. Dictated by: Dictated on workstation # [id number]
--- NOTE | 2019-07-09 14:45 | ED Neurological Problem ---
General Chief Complaint: Neuro-Stroke Like Symptoms Stated Complaint: STROKE SYMPTOMS Nursing Triage Note: Pt sent to ED from Dr. Ha's office. Pt c/o vision changes in right eye and headache since last night. pt reports watching TV last night and noticing vision changes. Pt unsure of exact time of onset but estimates onset around [id number] last night. Nursing Sepsis Screen: No Definite Risk Source: patient Exam Limitations: no limitations History of Present Illness Date Seen by Provider: Jul 09, 2019 Time Seen by Provider: 12:22 Initial Comments This 58-year-old gentleman presents to the emergency room with complaints of loss of vision in the right eye since 22:00 last night. Fingerstick blood sugar was 189. He presented to Dr. Ha's office and was sent to the ER for immediate evaluation. He seems to have a lateral field deficit in the right eye only. Vision in the left eye appears normal. Patient is noted to have had a recent cardiac stent placement. Allergies and Home Medications Allergies Coded Allergies: linezolid (Verified Allergy, Unknown, 06/17/19) Home Medications Acetaminophen 500 Mg Tablet, 1,000 MG PO HS, (Reported) TAKES 2 (500MG) TABLETS Aspirin 81 Mg Tab.chew, 81 MG PO DAILY, (Reported) Atorvastatin Calcium 80 Mg Tablet, 80 MG PO DAILY, (Reported) Clonazepam 1 Mg Tablet, 2 MG PO HS, (Reported) TAKES 2 (1 MG) TABLETS Clopidogrel Bisulfate 75 Mg Tablet, 75 MG PO DAILY, (Reported) Enalapril Maleate 5 Mg Tablet, 2.5 MG PO BID, (Reported) TAKES 1/2 (5MG) TABLET Insulin Aspart 300 Units/3 Ml Solution, 10 UNITS SC TIDAC, (Reported) Insulin Degludec 200 Unit/1 Ml Insuln.pen, 50 UNITS SC DAILY, (Reported) Multivitamin 1 Each Tablet, 1 TAB PO DAILY, (Reported) Nitroglycerin 0.4 Mg Tab.subl, 0.4 MG SL UD PRN for CHEST PAIN, (Reported) Pregabalin 50 Mg Capsule, 50 MG PO HS, (Reported) Ranolazine 500 Mg Tab.er.12h, 500 MG PO BID, (Reported) Patient Home Medication List Home Medication List Reviewed: Yes Review of Systems Review of Systems Constitutional: no symptoms reported Eyes: See HPI Ears, Nose, Mouth, Throat: no symptoms reported Respiratory: no symptoms reported Cardiovascular: no symptoms reported Gastrointestinal: no symptoms reported Genitourinary: no symptoms reported Musculoskeletal: no symptoms reported Skin: no symptoms reported Psychiatric/Neurological: See HPI Endocrine: No Symptoms Reported Hematologic/Lymphatic: No Symptoms Reported Past Daskyzl-Ctqckr-Ercshd Hx Past Med/Social Hx: Reviewed Nursing Past Med/Soc Hx Patient Social History Alcohol Use: Denies Use Recreational Drug Use: No Smoking Status: Never a Smoker 2nd Hand Smoke Exposure: No Recent Foreign Travel: No Contact w/Someone Who Travel: No Recent Infectious Disease Expo: No Recent Hopitalizations: Yes (DEC 2018 HEART STENT) Physical Abuse: No Sexual Abuse: No Immunizations Up To Date Tetanus Booster (TDap): Unknown PED Vaccines UTD: No Date of Pneumonia Vaccine: Jan 02, 2011 Date of Influenza Vaccine: Aug 07, 2018 Seasonal Allergies Seasonal Allergies: No Past Medical History Surgeries: Yes (ACL; Wrist; Heart stents) Abdominal, Amputation, Appendectomy, Coronary Stent, Gallbladder, Orthopedic, Tonsillectomy Respiratory: No Currently Using CPAP: No Currently Using BIPAP: No Cardiac: Yes (Heart stents) Coronary Artery Disease, Heart Attack, High Cholesterol, Hypertension Neurological: Yes Neuropathy, Stroke Reproductive Disorders: No Sexually Transmitted Disease: No HIV/AIDS: No Genitourinary: No Kidney Stones Gastrointestinal: Yes Abdominal Hernia Musculoskeletal: Yes (OSTEOMYELITIS WITH MULTIPLE TOE AMPUTATIONS, BACK FUSION X3) Degenerate Disk Disease, Arthritis, Chronic Back Pain Endocrine: Yes Diabetes, Insulin dep HEENT: No Loss of Vision: Denies Hearing Impairment: Denies Cancer: No Psychosocial: Yes Anxiety, Depression Integumentary: No Blood Disorders: No Adverse Reaction/Blood Tranf: No Family Medical History Family history: Cardiovascular disease 19 FATHER Family history: Diabetes mellitus 19 MOTHER Heart Disease, COPD, Diabetes, Hypertension, Psychiatric Problems, Renal Disease, Vascular Disease Physical Exam Vital Signs Vital Signs - First Documented 07/09/19 12:14 Temp 97.6 Pulse 75 Resp 18 B/P (MAP) 159/109 (126) Pulse Ox 99 O2 Delivery Room Air Capillary Refill : Less Than 3 Seconds Height, Weight, BMI Height: 6'4.00" Weight: 240lbs. 3.0oz. 108.925006ax; 29.5 BMI Method:Stated General Appearance: WD/WN, no apparent distress HEENT: PERRL/EOMI, normal ENT inspection, pharynx normal Neck: normal inspection Respiratory: lungs clear, normal breath sounds, no respiratory distress, no accessory muscle use Cardiovascular: regular rate, rhythm, no edema, no murmur Gastrointestinal: non tender, soft Extremities: normal inspection, no pedal edema Neurologic/Psychiatric: no motor/sensory deficits, alert, oriented x 3, other (affect is mildly flattened. Visual field cut in the lateral vision of the right eye) Crainal Nerves: normal hearing, normal speech, PERRL Motor/Sensory: no motor deficit, no sensory deficit, no pronator drift Skin: normal color, warm/dry Stroke NIH Stroke Scale Assessment Level of Consciousness: 0=Alert (0), Level of Consciousness-Questions: 0=Answers both month/age (0), LOC Commands: 0=Performs both tasks (0), Visual Ling: 1=Partial hemianopia (1), Facial Movement (Facial Paresis): 0=Normal symmetrical mnt (0), Motor Function-Arms Right: 0=No drift (0), Motor Function-Arms Left: 0=No drift (0), Motor Function-Legs Right: 0=No drift (0 ), Motor Function-Legs Left: 0=No drift (0), Limb Ataxia: 0=Absent (0), Sen levi: 0=Normal:no loss (0), Best Language: 0=No aphasia (0), Dysarthria: 0=N ormal (0), Extinction & Inattention: 0=No abnormality (0), Total: 1 Stroke Thrombolytic Exclusion Age 18 or Over: Yes Intracranial Neoplasm/Aneurysm: No Recent CPR: No Diabetic Hemorrhagic Retinopat: No Recent Obstetric Delivery: No Significant Hepatic Dysfunctio: No Improving Symptoms: No Progress/Results/Core Measures Results/Orders Lab Results Laboratory Tests Test 07/09/19 12:19 07/09/19 12:24 07/09/19 13:45 Range/Units White Blood Count 6.4 4.3-11.0 10^3/uL Red Blood Count 4.70 4.35-5.85 10^6/uL Hemoglobin 14.4 13.3-17.7 G/DL Hematocrit 42 40-54 % Mean Corpuscular Volume 90 80-99 FL Mean Corpuscular Hemoglobin 31 25-34 PG Mean Corpuscular Hemoglobin Concent 34 32-36 G/DL Red Cell Distribution Width 14.2 10.0-14.5 % Platelet Count 184 130-400 10^3/uL Mean Platelet Volume 10.3 7.4-10.4 FL Neutrophils (%) (Auto) 65 42-75 % Lymphocytes (%) (Auto) 27 12-44 % Monocytes (%) (Auto) 7 0-12 % Eosinophils (%) (Auto) 1 0-10 % Basophils (%) (Auto) 0 0-10 % Neutrophils # (Auto) 4.1 1.8-7.8 X 10^3 Lymphocytes # (Auto) 1.7 1.0-4.0 X 10^3 Monocytes # (Auto) 0.4 0.0-1.0 X 10^3 Eosinophils # (Auto) 0.1 0.0-0.3 10^3/uL Basophils # (Auto) 0.0 0.0-0.1 10^3/uL Erythrocyte Sedimentation Rate 4 0-30 MM/HR Prothrombin Time 12.9 12.2-14.7 SEC INR Comment 0.9 0.8-1.4 Activated Partial Thromboplast Time 29 24-35 SEC D-Dimer 0.97 H 0.00-0.49 UG/ML Sodium Level 139 135-145 MMOL/L Potassium Level 4.0 3.6-5.0 MMOL/L Chloride Level 104 98-107 MMOL/L Carbon Dioxide Level 29 21-32 MMOL/L Anion Gap 6 5-14 MMOL/L Blood Urea Nitrogen 13 7-18 MG/DL Creatinine 1.03 0.60-1.30 MG/DL Estimat Glomerular Filtration Rate > 60 BUN/Creatinine Ratio 13 Glucose Level 189 H 70-105 MG/DL Calcium Level 9.0 8.5-10.1 MG/DL Corrected Calcium 9.2 8.5-10.1 MG/DL Total Bilirubin 1.3 H 0.1-1.0 MG/DL Aspartate Amino Transf (AST/SGOT) 24 5-34 U/L Alanine Aminotransferase (ALT/SGPT) 32 0-55 U/L Alkaline Phosphatase 90 40-136 U/L Troponin I < 0.028 <0.028 NG/ML C-Reactive Protein High Sensitivity 0.04 0.00-0.50 MG/DL Total Protein 7.0 6.4-8.2 GM/DL Albumin 3.8 3.2-4.5 GM/DL Glucometer 189 H 70-110 MG/DL Urine Color YELLOW Urine Clarity CLEAR Urine pH 7 5-9 Urine Specific [place] 1.010 L 1.016-1.022 Urine Protein 1+ H NEGATIVE Urine Glucose (UA) 3+ H NEGATIVE Urine Ketones NEGATIVE NEGATIVE Urine Nitrite NEGATIVE NEGATIVE Urine Bilirubin NEGATIVE NEGATIVE Urine Urobilinogen NORMAL NORMAL MG/DL Urine Leukocyte Esterase NEGATIVE NEGATIVE Urine RBC (Auto) NEGATIVE NEGATIVE Urine RBC NONE /HPF Urine WBC NONE /HPF Urine Crystals NONE /LPF Urine Bacteria NEGATIVE /HPF Urine Casts NONE /LPF Urine Mucus NEGATIVE /LPF Urine Culture Indicated NO My Orders Orders - POWER CARR MD Cbc With Automated Diff (07/09/19 12:32) Protime With Inr (07/09/19 12:32) Partial Thromboplastin Time (07/09/19 12:32) Comprehensive Metabolic Panel (07/09/19 12:32) Fibrin Degradation Products (07/09/19 12:32) Troponin I (07/09/19 12:32) Ua Culture If Indicated (07/09/19 12:32) Chest 1 View, Ap/Pa Only (07/09/19 12:32) Ekg Tracing (07/09/19 12:32) Nothing By Mouth (07/09/19 Dinner) Accucheck Stat ONCE (07/09/19 12:32) Ed Iv/Invasive Line Start (07/09/19 12:32) Ed Iv/Invasive Line Start (07/09/19 12:32) Vital Signs Stroke Patient Q15M (07/09/19 12:32) Ct Head Wo-R/O Stroke (07/09/19 12:32) O2 (07/09/19 12:32) Intake & Output 06,14,22 (07/09/19 12:32) Monitor-Rhythm Ecg Trace Only (07/09/19 12:32) Dysphagia Screening Tool (07/09/19 12:32) Post Thrombolytic Adminstratio (07/09/19 12:32) Us Carotid Lalit Complete [id number] (07/09/19 12:45) Hs C Reactive Protein (07/09/19 14:00) Erythrocyte Sedimentation Rate (07/09/19 14:00) Vital Signs/I&O 07/09/19 07/09/19 12:14 15:00 Temp 97.6 97.6 Pulse 75 72 Resp 18 9 B/P (MAP) 159/109 (126) 175/110 (131) Pulse Ox 99 96 O2 Delivery Room Air Room Air Blood Pressure Mean: 126 FSBG Bedside Testing Finger Stick Blood Glucose: 189 Blood Glucose Action Taken: physician aware Progress Progress Note : Progress Note Stroke activation was paged. NIH stroke score was a one for the visual field deficit. Patient is well beyond the treatment window for thrombolytics. CT of the head was unremarkable. Carotid ultrasound also was unremarkable. Case was discussed with Dr. Herron, stroke neurologist at [facility]. She also recommended checking inflammatory markers. ESR and CRP were both normal. I discussed the case with Dr. Burnham. CLERK [employer]ERVATIONS lesion was ruled out. Dr. Burnham will assess the patient for a primary ophthalmologic etiology/pathology. Patient was sent directly to his office. His assistance is greatly appreciated. Diagnostic Imaging Diagonstic Imaging: CT Plain Films/CT/US/NM/MRI: head Comments CT head viewed by me and report reviewed. Discussed with radiologist. See report below: NAME: LUIS BARRERA [facility] REC#: [id number] PT STATUS: REG ER : 1960 PHYSICIAN: POWER CARR MD ADMIT DATE: 07/09/19/ER Draft Date of Exam:07/09/19 CT HEAD WO-R/O STROKE CLINICAL INDICATION: Patient with vision changes in right eye and headaches since last night. EXAM: Axial CT scan of the brain performed without IV contrast. COMPARISON: Head CT without contrast dated 03/10/2019. FINDINGS: There is no evidence of acute cerebral infarct, intracranial hemorrhage, or gross mass effect. The brain parenchymal volume appears appropriate for patient's age. There are subtle patchy areas of low-attenuation white matter changes involving both cerebral hemispheres, likely representing chronic small vessel ischemic disease. Stable small area of prominent perivascular space in the left sub-putamen region. There is normal jarrett-white matter distinction. There is no significant midline shift or herniation. There is no evidence of hydrocephalus. The basal cisterns are unremarkable. The skull, extracranial soft tissue, and orbits are unremarkable. There is mild ethmoid sinus mucosal thickening. Temporal bones show no significant abnormality. IMPRESSION: Stable CT scan of the brain with no evidence of acute intracranial process. Results of this report was discussed with Dr. Power Carr via the telephone on 07/09/2019 at 1258 hours. Dictated on workstation # [id number] Dict: 07/09/19 1253 Trans: 07/09/19 1300 [facility] [id number] Interpreted by: PRISCILA VELAZQUEZ MD Diagonstic Imaging: Xray Plain Films/CT/US/NM/MRI: chest Comments Chest x-ray viewed by me and report reviewed. See report below: NAME: LUIS BARRERA [facility] REC#: [id number] PT STATUS: REG ER : 1960 PHYSICIAN: POWER CARR MD ADMIT DATE: 07/09/19/ER Draft Date of Exam:07/09/19 CHEST 1 VIEW, AP/PA ONLY INDICATION: Visual changes and headache. Frontal chest obtained at 12:43 p.m. and compared to 06/16/2019. FINDINGS: Heart is borderline enlarged. There is poor inspiration. Lungs are clear. There is no pneumothorax or pleural fluid. IMPRESSION: Borderline cardiomegaly with poor inspiration. No acute infiltrate or pleural fluid. Dictated on workstation # [id number] Dict: 07/09/19 1255 Trans: 07/09/19 1303 [id number] Interpreted by: TRACIE STAPLETON MD Diagonstic Imaging: Ultrasound Plain Films/CT/US/NM/MRI: other (carotid) Comments Bilateral carotid ultrasound discussed with the certified veterinary technician and report reviewed. See report below: NAME: LUIS BARRERA [employer] REC#: [id number] PT STATUS: REG ER : 1960 PHYSICIAN: POWER CARR MD ADMIT DATE: 07/09/19/ER Draft Date of Exam:07/09/19 US CAROTID LALIT COMPLETE [id number] Clinical indication: Patient with stroke symptoms. Comparison: Ultrasound of the carotid arteries dated 01/29/2017. Exam: Real-time carotid Doppler duplex imaging is performed bilaterally. Peak systolic velocity, ICA/CCA peak systolic ratio, spectral analysis, and vascular morphology are studied. Findings: ARTERY VELOCITY Right Left CCA 0.82 m/s 0.89 m/s ICA 0.88 m/s 0.79 m/s ECA 1.16 m/s 1.06 m/s ICA/CCA 1.07 0.89 VERT.ART Antegrade Antegrade There is no significant atherosclerotic disease of the bilateral carotid arteries. Impression: There is no grayscale or Doppler evidence of significant vascular stenosis. Dictated on workstation # [id number] Dict: 07/09/19 1406 Trans: 07/09/19 1414 [facility] [id number] Interpreted by: PRISCILA VELAZQUEZ MD Departure Impression Primary Impression: Visual field cut Disposition: 01 HOME, SELF-CARE Condition: Stable Departure-Patient Inst. Decision time for Depature: 14:44 Referrals: ROSA MARIA HA MD (PCP/Family) Primary Care Physician TAYLOR BURNHAM OD Add. Discharge Instructions: Please go directly to Dr. Burnham's office for a formal eye exam. All discharge instructions reviewed with patient and/or family. Voiced understanding. Copy Copies To 1: TAYLOR BURNHAM OD Copies To 2: ROSA MARIA HA MD, JOSHUA T MD Jul 09, 2019 14:45
[2019-07-09 15:00] VITALS: BP 175/110
== END 2019-07-09 15:01 | disposition home or self-care (01) ==
LOC: EDUNIT# 12:11 → ER 12:12
DX: H53.40 Unspecified visual field defects (principal); I10 Essential (primary) hypertension; E78.00 Pure hypercholesterolemia, unspecified; I25.10 Atherosclerotic heart disease of native coronary artery without angina pectoris; E11.40 Type 2 diabetes mellitus with diabetic neuropathy, unspecified; E11.69 Type 2 diabetes mellitus with other specified complication; M86.9 Osteomyelitis, unspecified; Z98.1 Arthrodesis status; Z87.442 Personal history of urinary calculi; Z88.1 Allergy status to other antibiotic agents; Z79.82 Long term (current) use of aspirin; Z79.02 Long term (current) use of antithrombotics/antiplatelets; Z79.4 Long term (current) use of insulin; Z95.5 Presence of coronary angioplasty implant and graft; Z90.49 Acquired absence of other specified parts of digestive tract; Z90.89 Acquired absence of other organs; Z89.429 Acquired absence of other toe(s), unspecified side; Z82.49 Family history of ischemic heart disease and other diseases of the circulatory system
CPT/HCPCS: 36415; 70450; 71045; 80053; 81000; 82962; 84484; 85025; 85379; 85610; 85652; 85730; 86141; 93005; 93041; 93880

== ENCOUNTER 2019-08-29 06:51 | Emergency (ER) | payer OTHER ==
[~2019-08-29] VITALS: Ht 193 cm; Wt 111.0 kg
[2019-08-29] MEDS ORDERED: TETRACAINE 0.5% OPHTH SOLN 4 ML BTL (SINGLE DOSE ONLY) ONE (07:08)
[2019-08-29 07:39] LABS: BASOPHILS % (AUTO) 0 % (0-10); EOSINOPHILS # (AUTO) 0.1 10^3/uL (0.0-0.3); EOSINOPHILS % (AUTO) 1 % (0-10); HEMATOCRIT 45 % (40-54); LYMPHOCYTES # (AUTO) 2.7 X 10^3 (1.0-4.0); LYMPHOCYTES % (AUTO) 46 % (12-44); MEAN CORPUSCULAR HEMOGLOBIN 31 PG (25-34); MEAN CORPUSCULAR HGB CONC 35 G/DL (32-36); MEAN CORPUSCULAR VOLUME 87 FL (80-99); MEAN PLATELET VOLUME 11.2 FL (7.4-10.4); MONOCYTES # (AUTO) 0.5 X 10^3 (0.0-1.0); MONOCYTES % (AUTO) 8 % (0-12); NEUTROPHILS # (AUTO) 2.6 X 10^3 (1.8-7.8); NEUTROPHILS % (AUTO) 45 % (42-75); PLATELET COUNT 154 10^3/uL (130-400); RED CELL DISTRIBUTION WIDTH 12.6 % (10.0-14.5); WHITE BLOOD COUNT 5.8 10^3/uL (4.3-11.0)
[2019-08-29] MEDS ORDERED: fentaNYL INJECTION 100 MCG/2 ML AMP ONE (07:41)
[2019-08-29] MEDS ORDERED: fentaNYL INJECTION 100 MCG/2 ML AMP IVP STA ×2 (07:41→09:20)
--- NOTE | 2019-08-29 07:49 | ED EENT ---
History of Present Illness General Chief Complaint: Eye Problems Stated Complaint: RT EYE HAS PRESSURE Nursing Triage Note: PT PRESENTS TO ED WITH COMPLAINTS OF R EYE PAIN AND PRESSURE BEHIND R EYE STARTING AT 0500 THIS AM. 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 Source: patient, spouse Exam Limitations: no limitations (SCARLETT IBARRA STUDENT) History of Present Illness Date Seen by Provider: Aug 29, 2019 Time Seen by Provider: 07:15 Initial Comments Patient presents to the ED today with complaints of pressure and pain directly behind his right eye since he woke up this morning as well as nasal congestion and epistaxis. The eye is extremely photophobic and the patient describes the pressure as a constant sensation of something trying to push his eye out of its socket. The patient is on Plavix, and has a history of a blood clot in his eye last month. The blood clot resulted in him losing medial and lateral vision in his right eye. Nothing alleviates his symptoms and any kind of light makes the symptoms worse. Location Injury Occurred: In bed Timing/Duration: abrupt, this morning Severity: severe Location: eye (R) Prearrival Treatment: no prearrival treatment Presenting Symptoms/Injuries: Pressure behind right eye and photophobic Modifying Factors: Improves With Other (Covering the eye to prevent light exposure) Associated Symptoms: nasal congestion/drainage (SCARLETT IBARRA STUDENT) Allergies and Home Medications Allergies Coded Allergies: linezolid (Verified Allergy, Unknown, 06/17/19) Home Medications Acetaminophen 500 Mg Tablet, 1,000 MG PO HS, (Reported) TAKES 2 (500MG) TABLETS Aspirin 81 Mg Tab.chew, 81 MG PO DAILY, (Reported) Atorvastatin Calcium 80 Mg Tablet, 80 MG PO DAILY, (Reported) Clonazepam 1 Mg Tablet, 2 MG PO HS, (Reported) TAKES 2 (1 MG) TABLETS Clopidogrel Bisulfate 75 Mg Tablet, 75 MG PO DAILY, (Reported) Enalapril Maleate 5 Mg Tablet, 2.5 MG PO BID, (Reported) TAKES 1/2 (5MG) TABLET Insulin Aspart 300 Units/3 Ml Solution, 10 UNITS SC TIDAC, (Reported) Insulin Degludec 200 Unit/1 Ml Insuln.pen, 50 UNITS SC DAILY, (Reported) Multivitamin 1 Each Tablet, 1 TAB PO DAILY, (Reported) Nitroglycerin 0.4 Mg Tab.subl, 0.4 MG SL UD PRN for CHEST PAIN, (Reported) Pregabalin 50 Mg Capsule, 50 MG PO HS, (Reported) Ranolazine 500 Mg Tab.er.12h, 500 MG PO BID, (Reported) Patient Home Medication List Home Medication List Reviewed: Yes (VJ FONTANEZ MD) Review of Systems Review of Systems Constitutional: no symptoms reported Eyes: See HPI Ears: No Symptoms Reported Nose: congestion, epistaxis Mouth: no symptoms reported Throat: no symptoms reported Respiratory: no symptoms reported Cardiovascular: no symptoms reported Gastrointestinal: no symptoms reported Musculoskeletal: no symptoms reported Skin: no symptoms reported Neurological: No Symptoms Reported Hematologic/Lymphatic: No Symptoms Reported Immunological/Allergic: no symptoms reported (SCARLETT IBARRA) Eyes: Pain, Photophobia Respiratory: No short of breath, No wheezing Cardiovascular: No chest pain, No edema (VJ FONTANEZ MD) All Other Systems Reviewed Negative Unless Noted: Yes (VJ FONTANEZ MD) Past Tkmlqtc-Kshqnn-Qemkak Hx Past Med/Social Hx: Reviewed Nursing Past Med/Soc Hx (VJ FONTANEZ MD) Patient Social History Alcohol Use: Denies Use Recreational Drug Use: No Smoking Status: Never a Smoker 2nd Hand Smoke Exposure: No Recent Foreign Travel: No Contact w/Someone Who Travel: No Recent Infectious Disease Expo: No Recent Hopitalizations: Yes (DEC 2018 HEART STENT) Physical Abuse: No Sexual Abuse: No Mistreated: No Fear: No (SCARELTT IBARRA) Immunizations Up To Date Tetanus Booster (TDap): Unknown PED Vaccines UTD: No Date of Pneumonia Vaccine: Jan 02, 2011 Date of Influenza Vaccine: Aug 07, 2018 (SCARLETT IBARRA) Seasonal Allergies Seasonal Allergies: No (SCARLETT IBARRA) Past Medical History Surgeries: Yes (ACL; Wrist; Heart stents) Abdominal, Amputation, Appendectomy, Coronary Stent, Gallbladder, Orthopedic, Tonsillectomy Respiratory: No Currently Using CPAP: No Currently Using BIPAP: No Cardiac: Yes (Heart stents) Coronary Artery Disease, Heart Attack, High Cholesterol, Hypertension Neurological: Yes Neuropathy, Stroke Reproductive Disorders: No Sexually Transmitted Disease: No HIV/AIDS: No Genitourinary: No Kidney Stones Gastrointestinal: Yes Abdominal Hernia Musculoskeletal: Yes (OSTEOMYELITIS WITH MULTIPLE TOE AMPUTATIONS, BACK FUSION X3) Degenerate Disk Disease, Arthritis, Chronic Back Pain Endocrine: Yes Diabetes, Insulin dep HEENT: Yes (R EYE BLOOD CLOT/PARTIAL BLINDNESS) Loss of Vision: Denies Hearing Impairment: Denies Cancer: No Psychosocial: Yes Anxiety, Depression Integumentary: No Blood Disorders: No Adverse Reaction/Blood Tranf: No (SCARLETT IBARRA STUDENT) Family Medical History Reviewed Nursing Family Hx (VJ FONTANEZ MD) Family history: Cardiovascular disease 19 FATHER Family history: Diabetes mellitus 19 MOTHER Heart Disease, COPD, Diabetes, Hypertension, Psychiatric Problems, Renal Disease, Vascular Disease (SCARLETT IBARRA STUDENT) Visual Acuity : Vision Acuity Degree: Medial and lateral visual field loss in right eye (SCARLETT IBARRA STUDENT) Physical Exam Vital Signs Vital Signs - First Documented 08/29/19 07:17 Temp 36.1 Pulse 88 Resp 29 B/P (MAP) 166/90 (115) Pulse Ox 97 (VJ FONTANEZ MD) Height, Weight, BMI Height: 6'4.00" Weight: 240lbs. 3.0oz. 108.702725cp; 29.00 BMI Method:Stated General Appearance: moderate distress Eyes: bilateral eye normal inspection, bilateral eye PERRL, bilateral eye EOMI Nose: other (epistaxis) Mouth/Throat: normal mouth inspection, pharynx normal Cardiovascular: normal peripheral pulses, regular rate, rhythm, no edema, no gallop, no JVD, no murmur Respiratory: chest non-tender, lungs clear, normal breath sounds, no respira tory distress, no accessory muscle use Gastrointestinal: normal bowel sounds, non tender, soft, no organomegaly, no pulsatile mass Neurologic/Psychiatric: alert, oriented x 3 Skin: normal color, warm/dry (SCARLETT IBARRA STUDENT) General Appearance: WD/WN Neck: full range of motion, supple Cardiovascular: regular rate, rhythm, no murmur Respiratory: lungs clear, no accessory muscle use Gastrointestinal: non tender, soft Neurologic/Psychiatric: alert, oriented x 3 Skin: normal color, warm/dry (VJ FONTANEZ MD) Progress/Results/Core Measures Results/Orders Lab Results Laboratory Tests Test 08/29/19 07:08 Range/Units White Blood Count 5.8 4.3-11.0 10^3/uL Red Blood Count 5.24 4.35-5.85 10^6/uL Hemoglobin 16.0 13.3-17.7 G/DL Hematocrit 45 40-54 % Mean Corpuscular Volume 87 80-99 FL Mean Corpuscular Hemoglobin 31 25-34 PG Mean Corpuscular Hemoglobin Concent 35 32-36 G/DL Red Cell Distribution Width 12.6 10.0-14.5 % Platelet Count 154 130-400 10^3/uL Mean Platelet Volume 11.2 H 7.4-10.4 FL Neutrophils (%) (Auto) 45 42-75 % Lymphocytes (%) (Auto) 46 H 12-44 % Monocytes (%) (Auto) 8 0-12 % Eosinophils (%) (Auto) 1 0-10 % Basophils (%) (Auto) 0 0-10 % Neutrophils # (Auto) 2.6 1.8-7.8 X 10^3 Lymphocytes # (Auto) 2.7 1.0-4.0 X 10^3 Monocytes # (Auto) 0.5 0.0-1.0 X 10^3 Eosinophils # (Auto) 0.1 0.0-0.3 10^3/uL Basophils # (Auto) 0.0 0.0-0.1 10^3/uL Prothrombin Time 13.4 12.2-14.7 SEC INR Comment 1.0 0.8-1.4 Activated Partial Thromboplast Time 32 24-35 SEC D-Dimer 0.76 H 0.00-0.49 UG/ML Sodium Level 139 135-145 MMOL/L Potassium Level 4.5 3.6-5.0 MMOL/L Chloride Level 104 98-107 MMOL/L Carbon Dioxide Level 25 21-32 MMOL/L Anion Gap 10 5-14 MMOL/L Blood Urea Nitrogen 22 H 7-18 MG/DL Creatinine 1.34 H 0.60-1.30 MG/DL Estimat Glomerular Filtration Rate 55 BUN/Creatinine Ratio 16 Glucose Level 209 H 70-105 MG/DL Calcium Level 9.4 8.5-10.1 MG/DL Corrected Calcium 9.3 8.5-10.1 MG/DL Total Bilirubin 0.8 0.1-1.0 MG/DL Aspartate Amino Transf (AST/SGOT) 28 5-34 U/L Alanine Aminotransferase (ALT/SGPT) 48 0-55 U/L Alkaline Phosphatase 94 40-136 U/L Troponin I < 0.028 <0.028 NG/ML Total Protein 7.3 6.4-8.2 GM/DL Albumin 4.1 3.2-4.5 GM/DL (VJ FONTANEZ MD) My Orders Orders - VJ FONTANEZ MD Tetracaine 0.5% Ophth Zakiya Sdv (Tetracai (08/29/19 07:08) Cbc With Automated Diff (08/29/19:29) Protime With Inr (08/29/19:29) Partial Thromboplastin Time (08/29/19:29) Comprehensive Metabolic Panel (08/29/19:29) Fibrin Degradation Products (08/29/19:) Troponin I (08/29/19:29) Chest 1 View, Ap/Pa Only (08/29/19 07:29) Ekg Tracing (08/29/19:29) Nothing By Mouth (08/29/19 Lunch) Accucheck Stat ONCE (08/29/19 07:29) Ed Iv/Invasive Line Start (08/29/19 07:29) Vital Signs Stroke Patient Q15M (08/29/19 07:29) Ct Head Wo-R/O Stroke (08/29/19:29) O2 (08/29/19:29) Intake & Output 06,14,22 (08/29/19 07:29) Monitor-Rhythm Ecg Trace Only (08/29/19 07:29) Dysphagia Screening Tool (08/29/19 07:29) Lipid Panel (08/30/19 06:00) Fentanyl Injection (Sublimaze Injection (08/29/19 07:41) Fentanyl Injection (Sublimaze Injection (08/29/19 07:41) Fentanyl Injection (Sublimaze Injection (08/29/19 09:20) (VJ FONTANEZ MD) Medications Given in ED Current Medications Medications Dose Ordered Sig/Aylin Route Start Time Stop Time Status Last Admin Dose Admin Tetracaine HCl 4 ml STK-MED ONCE .ROUTE 08/29/19 07:08 08/29/19 07:10 DC 08/29/19 07:16 4 ML (VJ FONTANEZ MD) Vital Signs/I&O 08/29/19 07:17 Temp 36.1 Pulse 88 Resp 29 B/P (MAP) 166/90 (115) Pulse Ox 97 (VJ FONTANEZ MD) Blood Pressure Mean: 115 Progress Progress Note : Progress Note I seen and evaluated the patient and agree with above except as indicated. I have directed the plan of care. Patient's here with significant right eye pain and states that he feels like there are 2 eyeballs behind his eye pushing out. 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 He denies any weakness or other motor problems but does state that he has increasing vision loss of the right eye. Denies any recent injury and reports taking meds as directed including his blood thinners. On exam, right eye pressure was 18 and left eye pressure was 14. The stroke scale was otherwise 0 except for one for visual field deficit on the right eye. Physical exam is otherwise as above. We will go ahead and do a stroke workup due to his history including CT of the head. Monitor patient. Fentanyl 50 g IV for pain. 0920: I did discuss the case with Dr. Burnham and he recommends talking with Dr. Richey in [place]. I did call her right afterwards and reviewed the case. She will see him in their office this morning as soon as he gets there. I did discuss this with the and patient and they are in agreement. I did repeat dose of fentanyl 75 g IV for pain. 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 Patient and family verbalize understanding instructions and agreement with plan. (VJ FONTANEZ MD) Initial ECG Impression Date: Aug 29, 2019 Initial ECG Impression Time: 07:06 Initial ECG Rate: 78 Initial ECG Rhythm: Normal Sinus Initial ECG Comparisson: Unchanged Comment Sinus rhythm with left ventricular hypertrophy. No evidence of ST elevation GA. Left axis deviation. Interpreted by me. (VJ FONTANEZ MD) Diagnostic Imaging Diagonstic Imaging: Xray Comments [facility] [place], [place] NAME: LUIS BARRERA MED REC#: [id number] PT STATUS: REG ER : 1960 PHYSICIAN: VJ FONTANEZ MD ADMIT DATE: 08/29/19/ER Draft Date of Exam:08/29/19 CHEST 1 VIEW, AP/PA ONLY Portable erect AP chest at 7:42. INDICATION: Right eye pressure. The borderline cardiomegaly noted on the prior exam of 07/19/2019 is again evident and no different. The lungs remain clear. There is no sign of failure, pneumonia or pleural effusion. The mediastinum is not widened. The osseous structures are intact. IMPRESSION: Stable chest. There has been no adverse change since the prior exam. Dictated on workstation # [id number] Dict: 08/29/19806 Trans: 08/29/19809 CV [id number] Interpreted by: MOE MEHTA MD Electronically signed by: [facility]: CT Plain Films/CT/US/NM/MRI: head Comments [facility] [place] NAME: LUIS BARRERA [facility] REC#: [id number] PT STATUS: REG ER : 1960 PHYSICIAN: VJ FONTANEZ MD ADMIT DATE: 08/29/19/ER Draft Date of Exam:08/29/19 CT HEAD WO-R/O STROKE PROCEDURE: CT head wo r/o stroke. TECHNIQUE: Multiple contiguous axial images were obtained through the brain without the use of intravenous contrast. Auto Exposure Controls were utilized during the CT exam to meet ALARA standards for radiation dose reduction. INDICATION: Right eye pain. FINDINGS: The recent CT head exam of 07/09/2019 failed to show any sign of an acute intracranial abnormality. On this study, there is still no mass, hemorrhage or shift to the midline. The ventricles are not abnormally dilated and stable in size when compared to the prior study. The mild senescent changes including cortical atrophy and periventricular encephalomalacia seen previously are no different than on the prior exam. There is a very small 3.5 x 4.0 mm area of diminished density in the suprasellar region near midline. 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 The bone windows show no evidence for fracture or for a destructive lesion. The orbits are symmetrical and within normal limits. The sinuses are generally clear. IMPRESSION: 1. There is no evidence for an acute intracranial abnormality. When compared to prior study, there has been no significant change. 2. If clinical concern regarding an underlying abnormality persists, then MRI would be recommended for further study. 3. These results were discussed with Dr. Fontanez in the Emergency Room. Dictated on workstation # [id number] Dict: 08/29/19807 Trans: 08/29/19819 [id number] Interpreted by: MOE MEHTA MD Electronically signed by: (VJ FONTANEZ MD) Departure Impression Primary Impression: Acute right eye pain Additional Impression: Vision loss, right eye Disposition: 01 HOME, SELF-CARE Condition: Stable Departure-Patient Inst. Decision time for Depature: 09:37 (VJ FONTANEZ MD) Referrals: ROSA MARIA PRADO MD (PCP/Family) Primary Care Physician Patient Instructions: Acute Pain, Adult (DC) Add. Discharge Instructions: All discharge instructions reviewed with patient and/or family. Voiced understanding. You need to go directly to Dr. Richey's office in [place] and she will see there. Take the paperwork that you're given here to the office with you. Follow-up with Dr. Burnham early next week as well. Return for worse pain, increasing vision loss or other concerns as needed. Copy Copies To 1: TAYLOR BURNHAM OD, BRODIE PA STUDENT Aug 29, 2019 07:49 VJ FONTANEZ MD Aug 29, 2019 08:47
[2019-08-29 07:52] LABS: ALANINE AMINOTRANSFERASE 48 U/L (0-55); ALBUMIN 4.1 GM/DL (3.2-4.5); ALKALINE PHOSPHATASE 94 U/L (40-136); BILIRUBIN,TOTAL 0.8 MG/DL (0.1-1.0); BUN/CREATININE RATIO 16; CALCIUM 9.4 MG/DL (8.5-10.1); CARBON DIOXIDE 25 MMOL/L (21-32); CHLORIDE 104 MMOL/L (98-107); CREATININE SERUM 1.34 MG/DL (0.60-1.30); GFR ESTIMATED 55; GLUCOSE 209 MG/DL (70-105); POTASSIUM 4.5 MMOL/L (3.6-5.0); SODIUM 139 MMOL/L (135-145); TOTAL PROTEIN 7.3 GM/DL (6.4-8.2)
[2019-08-29 07:58] LABS: FIBRIN DEGRADATION PRODUCTS 0.76 UG/ML (0.00-0.49); PROTHROMBIN TIME PATIENT 13.4 SEC (12.2-14.7)
--- NOTE | 2019-08-29 08:10 | Diagnostic Imaging Report ---
Portable erect AP chest at 7:42. INDICATION: Right eye pressure. The borderline cardiomegaly noted on the prior exam of 07/19/2019 is again evident and no different. The lungs remain clear. There is no sign of failure, pneumonia or pleural effusion. The mediastinum is not widened. The osseous structures are intact. IMPRESSION: Stable chest. There has been no adverse change since the prior exam. Dictated by: Dictated on workstation # [id number]
--- NOTE | 2019-08-29 08:20 | Diagnostic Imaging Report ---
PROCEDURE: CT head wo r/o stroke. TECHNIQUE: Multiple contiguous axial images were obtained through the brain without the use of intravenous contrast. Auto Exposure Controls were utilized during the CT exam to meet ALARA standards for radiation dose reduction. INDICATION: Right eye pain. FINDINGS: The recent CT head exam of 07/09/2019 failed to show any sign of an acute intracranial abnormality. On this study, there is still no mass, hemorrhage or shift to the midline. The ventricles are not abnormally dilated and stable in size when compared to the prior study. The mild senescent changes including cortical atrophy and periventricular encephalomalacia seen previously are no different than on the prior exam. There is a very small 3.5 x 4.0 mm area of diminished density in the suprasellar region near midline. 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 The bone windows show no evidence for fracture or for a destructive lesion. The orbits are symmetrical and within normal limits. The sinuses are generally clear. IMPRESSION: 1. There is no evidence for an acute intracranial abnormality. When compared to prior study, there has been no significant change. 2. If clinical concern regarding an underlying abnormality persists, then MRI would be recommended for further study. 3. These results were discussed with Dr. López in the Emergency Room. Dictated by: Dictated on workstation # [id number]
[2019-08-29 09:50] VITALS: BP 135/92
== END 2019-08-29 09:50 | disposition home or self-care (01) ==
LOC: EDUNIT# 06:51 → ER 06:53
DX: H54.7 Unspecified visual loss (principal); I10 Essential (primary) hypertension; E11.40 Type 2 diabetes mellitus with diabetic neuropathy, unspecified; I25.10 Atherosclerotic heart disease of native coronary artery without angina pectoris; I25.2 Old myocardial infarction; F41.9 Anxiety disorder, unspecified; F32.9 Major depressive disorder, single episode, unspecified; E78.00 Pure hypercholesterolemia, unspecified; Z90.49 Acquired absence of other specified parts of digestive tract; Z90.89 Acquired absence of other organs; Z86.73 Personal history of transient ischemic attack (TIA), and cerebral infarction without residual deficits; Z87.442 Personal history of urinary calculi; Z79.02 Long term (current) use of antithrombotics/antiplatelets; Z88.1 Allergy status to other antibiotic agents; Z79.82 Long term (current) use of aspirin; Z79.4 Long term (current) use of insulin; Z95.5 Presence of coronary angioplasty implant and graft; Z82.49 Family history of ischemic heart disease and other diseases of the circulatory system
CPT/HCPCS: 36415; 70450; 71045; 80053; 84484; 85025; 85379; 85610; 85730; 93005; 93041; 96374; 96376

== ENCOUNTER 2019-09-24 09:46 | Outpatient (RCR) | payer OTHER ==
[2019-08-06 09:28] LABS: BASOPHILS % (AUTO) 0 % (0-10); EOSINOPHILS # (AUTO) 0.1 10^3/uL (0.0-0.3); EOSINOPHILS % (AUTO) 1 % (0-10); HEMATOCRIT 46 % (40-54); HEMOGLOBIN 16.1 G/DL (13.3-17.7); LYMPHOCYTES # (AUTO) 2.1 X 10^3 (1.0-4.0); LYMPHOCYTES % (AUTO) 41 % (12-44); MEAN CORPUSCULAR HEMOGLOBIN 31 PG (25-34); MEAN CORPUSCULAR HGB CONC 35 G/DL (32-36); MEAN CORPUSCULAR VOLUME 88 FL (80-99); MEAN PLATELET VOLUME 10.7 FL (7.4-10.4); MONOCYTES # (AUTO) 0.4 X 10^3 (0.0-1.0); MONOCYTES % (AUTO) 9 % (0-12); NEUTROPHILS # (AUTO) 2.5 X 10^3 (1.8-7.8); NEUTROPHILS % (AUTO) 49 % (42-75); PLATELET COUNT 166 10^3/uL (130-400); RED CELL DISTRIBUTION WIDTH 13.3 % (10.0-14.5); WHITE BLOOD COUNT 5.1 10^3/uL (4.3-11.0)
[2019-08-06 09:41] LABS: INR 1.6 (0.8-1.4); PROTHROMBIN TIME PATIENT 19.8 SEC (12.2-14.7)
[2019-08-06 09:47] LABS: ALBUMIN 3.9 GM/DL (3.2-4.5); CALCIUM 9.4 MG/DL (8.5-10.1); CREATININE SERUM 1.35 MG/DL (0.60-1.30); POTASSIUM 4.5 MMOL/L (3.6-5.0); TOTAL PROTEIN 7.3 GM/DL (6.4-8.2)
[2019-08-28 09:11] LABS: BASOPHILS % (AUTO) 0 % (0-10); EOSINOPHILS # (AUTO) 0.1 10^3/uL (0.0-0.3); EOSINOPHILS % (AUTO) 1 % (0-10); HEMATOCRIT 45 % (40-54); HEMOGLOBIN 15.8 G/DL (13.3-17.7); LYMPHOCYTES # (AUTO) 2.3 X 10^3 (1.0-4.0); LYMPHOCYTES % (AUTO) 38 % (12-44); MEAN CORPUSCULAR HEMOGLOBIN 30 PG (25-34); MEAN CORPUSCULAR HGB CONC 35 G/DL (32-36); MEAN CORPUSCULAR VOLUME 87 FL (80-99); MEAN PLATELET VOLUME 10.7 FL (7.4-10.4); MONOCYTES # (AUTO) 0.5 X 10^3 (0.0-1.0); MONOCYTES % (AUTO) 7 % (0-12); NEUTROPHILS # (AUTO) 3.3 X 10^3 (1.8-7.8); NEUTROPHILS % (AUTO) 54 % (42-75); PLATELET COUNT 153 10^3/uL (130-400); RED CELL DISTRIBUTION WIDTH 12.6 % (10.0-14.5); WHITE BLOOD COUNT 6.1 10^3/uL (4.3-11.0)
== END 2019-11-04 | disposition home or self-care (01) ==
LOC: ONC 09:46
PROVIDERS: ATTEND Internal Medicine Hematology & Oncology
DX: H34.11 Central retinal artery occlusion, right eye (principal); I51.3 Intracardiac thrombosis, not elsewhere classified; E11.21 Type 2 diabetes mellitus with diabetic nephropathy; E11.319 Type 2 diabetes mellitus with unspecified diabetic retinopathy without macular edema; D68.9 Coagulation defect, unspecified; I10 Essential (primary) hypertension; Z98.61 Coronary angioplasty status; Z82.49 Family history of ischemic heart disease and other diseases of the circulatory system; Z79.4 Long term (current) use of insulin; Z89.422 Acquired absence of other left toe(s); Z89.421 Acquired absence of other right toe(s); Z90.49 Acquired absence of other specified parts of digestive tract; Z98.1 Arthrodesis status; Z98.890 Other specified postprocedural states; Z83.3 Family history of diabetes mellitus
CPT/HCPCS: 36415; 80053; 81240; 81241; 83615; 85025; 85610; 85730; 99213; 99214

== ENCOUNTER 2019-11-17 11:00 | Outpatient (RCR) | payer OTHER ==
[~2019-11-17 11:00] MED LIST changes: -ENAL5TAB PO; +ENLP5T PO
[2019-11-17 11:30] LABS: BASOPHILS % (AUTO) 0 % (0-10); EOSINOPHILS % (AUTO) 0 % (0-10); HEMATOCRIT 46 % (40-54); LYMPHOCYTES # (AUTO) 4.4 X 10^3 (1.0-4.0); LYMPHOCYTES % (AUTO) 30 % (12-44); MEAN CORPUSCULAR HEMOGLOBIN 31 PG (25-34); MEAN CORPUSCULAR HGB CONC 35 G/DL (32-36); MEAN CORPUSCULAR VOLUME 90 FL (80-99); MEAN PLATELET VOLUME 10.8 FL (7.4-10.4); MONOCYTES # (AUTO) 0.8 X 10^3 (0.0-1.0); MONOCYTES % (AUTO) 5 % (0-12); NEUTROPHILS # (AUTO) 9.4 X 10^3 (1.8-7.8); NEUTROPHILS % (AUTO) 64 % (42-75); PLATELET COUNT 188 10^3/uL (130-400); RED CELL DISTRIBUTION WIDTH 14.1 % (10.0-14.5); WHITE BLOOD COUNT 14.7 10^3/uL (4.3-11.0)
[2019-11-17 11:58] LABS: BILIRUBIN,TOTAL 1.2 MG/DL (0.1-1.0); CALCIUM 9.9 MG/DL (8.5-10.1); CREATININE SERUM 1.65 MG/DL (0.60-1.30); POTASSIUM 5.1 MMOL/L (3.6-5.0); TOTAL PROTEIN 7.5 GM/DL (6.4-8.2)
[2019-11-29] MEDS ORDERED: MOME15CR17 TP (22:48)
== END 2019-12-26 14:32 | disposition home or self-care (01) ==
LOC: ONC 11:00
PROVIDERS: ATTEND Internal Medicine Hematology & Oncology
DX: E11.21 Type 2 diabetes mellitus with diabetic nephropathy (principal); H34.11 Central retinal artery occlusion, right eye; I51.3 Intracardiac thrombosis, not elsewhere classified; E11.319 Type 2 diabetes mellitus with unspecified diabetic retinopathy without macular edema; D68.9 Coagulation defect, unspecified; I10 Essential (primary) hypertension; Z98.61 Coronary angioplasty status; Z82.49 Family history of ischemic heart disease and other diseases of the circulatory system; Z79.4 Long term (current) use of insulin; Z89.422 Acquired absence of other left toe(s); Z89.421 Acquired absence of other right toe(s); Z90.49 Acquired absence of other specified parts of digestive tract; Z98.1 Arthrodesis status; Z98.890 Other specified postprocedural states; Z83.3 Family history of diabetes mellitus
CPT/HCPCS: 80053; 85025; 99213

== ENCOUNTER 2019-11-29 21:39 | Emergency (ER) | payer OTHER ==
[~2019-11-29] VITALS: Ht 187 cm; Wt 120.5 kg
[2019-11-29 22:37] LABS: BASOPHILS % (AUTO) 0 % (0-10); EOSINOPHILS # (AUTO) 0.1 10^3/uL (0.0-0.3); EOSINOPHILS % (AUTO) 2 % (0-10); HEMATOCRIT 36 % (40-54); HEMOGLOBIN 12.5 G/DL (13.3-17.7); LYMPHOCYTES # (AUTO) 2.2 X 10^3 (1.0-4.0); LYMPHOCYTES % (AUTO) 39 % (12-44); MEAN CORPUSCULAR HEMOGLOBIN 32 PG (25-34); MEAN CORPUSCULAR HGB CONC 34 G/DL (32-36); MEAN CORPUSCULAR VOLUME 93 FL (80-99); MONOCYTES # (AUTO) 0.5 X 10^3 (0.0-1.0); MONOCYTES % (AUTO) 9 % (0-12); NEUTROPHILS # (AUTO) 2.9 X 10^3 (1.8-7.8); NEUTROPHILS % (AUTO) 51 % (42-75); PLATELET COUNT 126 10^3/uL (130-400); WHITE BLOOD COUNT 5.7 10^3/uL (4.3-11.0)
--- NOTE | 2019-11-29 22:39 | ED General ---
General Chief Complaint: General Problems/Pain Stated Complaint: GENITAL BLEEDING Nursing Triage Note: Pt ambulates to RM 6 with c/o bleeding from testicles. Pt states he got out of the shower and was drying off when he noticed the blood on his towel. Pt also has c/o a painful, itchless rash on back of forearms and posterior aspect of knee. Pt states he has increased swelling in hands and feet also. Pt just got off a 7 day regimen of Bactrim earlier this week. PT denies any pain at this time. Nursing Sepsis Screen: No Definite Risk Source of Information: Patient History of Present Illness Date Seen by Provider: Nov 29, 2019 Time Seen by Provider: 21:58 Initial Comments PT ARRIVES VIA POV FROM HOME PT WITH MULTIPLE COMPLAINTS PT STATES HE HAS HAD A RASH SINCE SUNDAY--STARTED BEHIND LEFT KNEE, AND NOW IT IS ON HIS ARMS. STATES NOW HIS FEET AND HANDS AND ANKLES FEEL "TIGHT" AND FEEL LIKE THEY ARE SWOLLEN RASH DOES NOT ITCH AND IS NOT PAINFUL NO PROBLEMS BREATHING OR SWALLOWING NO SWELLING TO LIPS, TONGUE OR FACE PT HAS BEEN ON 10 DAYS OF BACTRIM FOR CHRONIC LEFT DIABETIC FOOT ULCER LAST DOSE WAS A COUPLE OF DAYS AGO HAS TAKEN BACTRIM IN THE PAST AND NOT HAD ANY PROBLEMS NO CHEST PAIN NO SHORTNESS OF BREATH NO DIZZINESS OR SYNCOPE NO PALPITATIONS NO PARESTHESIAS OR MOTOR DEFICITS NO NEW PRODUCTS, MEDICATIONS OR EXPOSURES STATES HE DOES NOT USE ANY SOAP OR ANYTHING AT ALL--EXCEPT WATER, WHEN HE BATHES PT STATES HE TOOK A SHOWER TONIGHT, AND HE WAS DRYING OFF, HE WIPED HIS GENITAL AREA WITH A TOWEL, AND NOTICED BLEEDING FROM HIS SCROTUM NO KNOWN INJURY TO THE AREA NO KNOWN WOUNDS/SORES, ETC. 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 NGUYEN IN [place]--HAS APPOINTMENT ON SUNDAY Allergies and Home Medications Allergies Coded Allergies: linezolid (Verified Allergy, Unknown, 06/17/19) Home Medications Acetaminophen 500 Mg Tablet, 1,000 MG PO HS, (Reported) TAKES 2 (500MG) TABLETS Aspirin 81 Mg Tab.chew, 81 MG PO DAILY, (Reported) Atorvastatin Calcium 80 Mg Tablet, 80 MG PO DAILY, (Reported) Clonazepam 1 Mg Tablet, 2 MG PO HS, (Reported) TAKES 2 (1 MG) TABLETS Clopidogrel Bisulfate 75 Mg Tablet, 75 MG PO DAILY, (Reported) Enalapril Maleate 5 Mg Tablet, 2.5 MG PO BID, (Reported) TAKES 1/2 (5MG) TABLET Insulin Aspart 300 Units/3 Ml Solution, 10 UNITS SC TIDAC, (Reported) Insulin Degludec 200 Unit/1 Ml Insuln.pen, 50 UNITS SC DAILY, (Reported) Mometasone Furoate 15 Gm Cream..g., 0 TP TID Prescribed by: PAUL IRVING on 11/29/192247 Multivitamin 1 Each Tablet, 1 TAB PO DAILY, (Reported) Nitroglycerin 0.4 Mg Tab.subl, 0.4 MG SL UD PRN for CHEST PAIN, (Reported) Pregabalin 50 Mg Capsule, 50 MG PO HS, (Reported) Ranolazine 500 Mg Tab.er.12h, 500 MG PO BID, (Reported) Patient Home Medication List Home Medication List Reviewed: Yes Review of Systems Review of Systems Constitutional: no symptoms reported; No chills, No diaphoresis, No fever EENTM: no symptoms reported Respiratory: no symptoms reported Cardiovascular: no symptoms reported Gastrointestinal: no symptoms reported Genitourinary: see HPI Musculoskeletal: no symptoms reported Skin: see HPI; No pruritus; rash Psychiatric/Neurological: No Symptoms Reported, Pre-Existing Deficit (PERIPHERAL NEUROPATHY) Hematologic/Lymphatic: See HPI (PT IS ON PLAVIX) Immunological/Allergic: no symptoms reported Past Ylvrgac-Daflpa-Niuhyl Hx Past Med/Social Hx: Reviewed and Corrections made Patient Social History Alcohol Use: Rarely Uses Recreational Drug Use: No Smoking Status: Never a Smoker 2nd Hand Smoke Exposure: No Recent Foreign Travel: No Contact w/Someone Who Travel: No Recent Infectious Disease Expo: No Recent Hopitalizations: No (DEC 2018 HEART STENT) Physical Abuse: No Sexual Abuse: No Mistreated: No Fear: No Immunizations Up To Date Tetanus Booster (TDap): Unknown PED Vaccines UTD: No Date of Pneumonia Vaccine: Jan 02, 2011 Date of Influenza Vaccine: Aug 07, 2018 Seasonal Allergies Seasonal Allergies: No Past Medical History Surgeries: Yes (ACL REPAIR;WRIST SURGERY;CARDIAC CATH--STENTS;ALL TOES AMPUTATED; ) Abdominal, Amputation, Appendectomy, Cardiac, Coronary Stent, Gallbladder, Orthopedic, Tonsillectomy Respiratory: No Currently Using CPAP: No Currently Using BIPAP: No Cardiac: Yes (CARDIAC CATHS--STENTS X 3-OM2, LAC, RCA) Cardiomyopathy, Coronary Artery Disease, Heart Attack, High Cholesterol, Hypertension Neurological: Yes Neuropathy, Stroke Reproductive Disorders: No Sexually Transmitted Disease: No HIV/AIDS: No Genitourinary: Yes Kidney Stones Gastrointestinal: Yes Abdominal Hernia Musculoskeletal: Yes (OSTEOMYELITIS WITH ALL TOES AMPUTATED; BACK FUSION X 3) Degenerate Disk Disease, Arthritis, Chronic Back Pain Endocrine: Yes Diabetes, Insulin dep HEENT: Yes (R EYE BLOOD CLOT/PARTIAL BLINDNESS) Loss of Vision: Denies Hearing Impairment: Denies Cancer: No Psychosocial: Yes Anxiety, Depression Integumentary: Yes (FOOT ULCERS/OSTEOMYELITIS; MULTIPLE SURGICAL WOUND INFECTIONS) Blood Disorders: No Adverse Reaction/Blood Tranf: No Family Medical History Family history: Cardiovascular disease 19 FATHER Family history: Diabetes mellitus 19 MOTHER Heart Disease, COPD, Diabetes, Hypertension, Psychiatric Problems, Renal Disease, Vascular Disease PSH: -BILATERAL KNEE SCOPES, WITH OPEN LEFT ACL REPAIR -ALL TOES AMPUTATED BILATERAL FEET -MULTIPLE DEBRIDEMENTS OF FOOT ULCERS -MULTIPLE CARDIAC CATHS-- ANGIOPLASTIES AND STENTS X 3--STENT TO OM2 HERE 05/2018, THEN TRANSFERED TO [facility] AND HAD STENT TO LAD ( COMPLICATED BY SEPSIS DUE TO LEFT FOOT ULCER AND WAS INTUBATED AND HAD PROLONGED HOSPITALIZATIONS/REHAB, AND HAD TOE AMPUTATION) ; HAD STENT TO RCA 01/02/19 -BACK SURGERY/FUSION X 3 -TONSILLECTOMY -APPENDECTOMY -CHOLECYSTECTOMY -HERNIA REPAIR WITH INFECTION/COMPLICATIONS -PORT RIGHT CHEST PLACED/REMOVED DUE TO INFECTION -MANY TEETH REMOVED Physical Exam Vital Signs Vital Signs - First Documented 11/29/19 21:57 Temp 36.8 Pulse 95 Resp 20 B/P (MAP) 129/90 (103) Pulse Ox 95 O2 Delivery Room Air Capillary Refill : Less Than 3 Seconds Height, Weight, BMI Height: 6'4.00" Weight: 240lbs. 3.0oz. [id number]; 34.00 BMI Method:Stated General Appearance: No Apparent Distress, WD/WN, Anxious HEENT: Other (NO UPPER TEETH, MULTIPLE MISSING LOWER TEETH. POOR DENTITION. NO SWELLING TO LIPS OR TONGUE OR FACE) Neck: Normal Inspection Respiratory: Normal Breath Sounds, No Accessory Muscle Use, No Respiratory Distress Cardiovascular: Regular Rate, Rhythm, No Edema, No Murmur Gastrointestinal: Non Tender, Soft Genital/Rectal: No Tenderness; Other (MULTIPLE SMALL SUPERFICIAL VARICOSE VEINS/TELANGECTASIAS TO SCROTUM AND PUNCTATE SUPERFICIAL ANGIOMAS TO SCROTAL SKIN. NO MASSES. NO TENDERNESS. NO ERYTHYEMA OR SIGNS OF INFECITON. HAS GAUZE ON RIGHT SCROTAL AREA WITH NICKEL - SIZED AREA OF BLOOD ON THE GAUZE, BUT NO SIGNS OF ACTIVE OR RECENT BLEEDING ANYWHERE IN GENITAL AREA AT THIS TIME. NO SORES OR WOUNDS TO AREA. PENIS IS NORMAL. NORMAL MILAN-RECTAL AND PERINEAL AREAS. ) Extremity: No Pedal Edema; No Pedal Edema, No Swelling (PT STATES HANDS FEEL "TIGHT AND SWOLLEN" BUT NO OBVIOUS SWELLING IS NOTED. ); Other (ALL TOES HAVE BEEN REMOVED FROM BOTH FEET. ULCER TO LEFT FOOT WITH 1 CM CENTRAL ULCERATION WITH SURROUNDING GRANULATION TISSUE. NO SIGNIFICANT SWELING OR ERYTHEMA. NO DRAINAGE OR BLEEDING. 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 NO SIGNS OF INFECTION OR OPEN WOUNDS. ) Progress/Results/Core Measures Suspected Sepsis Recent Fever Within 48 Hours: No Infection Criteria Present: None New/Unexplained Altered Menta: No Sepsis Screen: No Definite Risk SIRS Temperature: Pulse: 95 Respiratory Rate: 20 Laboratory Tests 11/29/19 22:30: White Blood Count 5.7 Blood Pressure 129 /90 Mean: 103 Laboratory Tests 11/29/19 22:30: Creatinine 1.13, Platelet Count 126L, Total Bilirubin 0.6 Results/Orders Lab Results Laboratory Tests Test 11/29/19 22:30 11/29/19 22:32 Range/Units White Blood Count 5.7 4.3-11.0 10^3/uL Red Blood Count 3.90 L 4.35-5.85 10^6/uL Hemoglobin 12.5 L 13.3-17.7 G/DL Hematocrit 36 L 40-54 % Mean Corpuscular Volume 93 80-99 FL Mean Corpuscular Hemoglobin 32 25-34 PG Mean Corpuscular Hemoglobin Concent 34 32-36 G/DL Red Cell Distribution Width 14.0 10.0-14.5 % Platelet Count 126 L 130-400 10^3/uL Mean Platelet Volume 10.0 7.4-10.4 FL Neutrophils (%) (Auto) 51 42-75 % Lymphocytes (%) (Auto) 39 12-44 % Monocytes (%) (Auto) 9 0-12 % Eosinophils (%) (Auto) 2 0-10 % Basophils (%) (Auto) 0 0-10 % Neutrophils # (Auto) 2.9 1.8-7.8 X 10^3 Lymphocytes # (Auto) 2.2 1.0-4.0 X 10^3 Monocytes # (Auto) 0.5 0.0-1.0 X 10^3 Eosinophils # (Auto) 0.1 0.0-0.3 10^3/uL Basophils # (Auto) 0.0 0.0-0.1 10^3/uL Sodium Level 141 135-145 MMOL/L Potassium Level 3.8 3.6-5.0 MMOL/L Chloride Level 107 98-107 MMOL/L Carbon Dioxide Level 22 21-32 MMOL/L Anion Gap 12 5-14 MMOL/L Blood Urea Nitrogen 36 H 7-18 MG/DL Creatinine 1.13 0.60-1.30 MG/DL Estimat Glomerular Filtration Rate > 60 BUN/Creatinine Ratio 32 Glucose Level 178 H 70-105 MG/DL Calcium Level 8.7 8.5-10.1 MG/DL Corrected Calcium 9.2 8.5-10.1 MG/DL Total Bilirubin 0.6 0.1-1.0 MG/DL Aspartate Amino Transf (AST/SGOT) 33 5-34 U/L Alanine Aminotransferase (ALT/SGPT) 51 0-55 U/L Alkaline Phosphatase 87 40-136 U/L Total Protein 6.1 L 6.4-8.2 GM/DL Albumin 3.4 3.2-4.5 GM/DL Glucometer 158 H 70-110 MG/DL My Orders Orders - PAUL IRVING DO Ed Iv/Invasive Line Start (11/29/19 22:29) Cbc With Automated Diff (11/29/19 22:29) Comprehensive Metabolic Panel (11/29/19 22:29) Methylprednisolone Sod Succ (Solu-Medrol (11/29/19 22:45) Medications Given in ED Current Medications Medications Dose Ordered Sig/Aylin Route Start Time Stop Time Status Last Admin Dose Admin Methylprednisolone Sodium Succinate 125 mg ONCE ONCE IVP 11/29/19 22:45 11/29/19 22:46 DC 11/29/19 22:45 125 MG Vital Signs/I&O 11/29/19 11/29/19 21:57 23:18 Temp 36.8 36.8 Pulse 95 97 Resp 20 20 B/P (MAP) 129/90 (103) 129/90 (103) Pulse Ox 95 95 O2 Delivery Room Air Capillary Refill : Less Than 3 Seconds Blood Pressure Mean: 103 Progress Note : Progress Note NO BLEEDING FROM GENITALS DURING ER STAY PT OTHERWISE DID NOT VOICE ANY COMPLAINTS DURING ENTIRE ER STAY Departure Impression Primary Impression: Angiokeratoma of scrotum Additional Impressions: Scrotal bleeding NONSPECIFIC DERMATITIS OF ARMS AND LEGS RECENT BACTRIM USE Ulcer of left foot due to type 2 diabetes mellitus Chronic ulcer of left foot Diabetes mellitus type 2, insulin dependent Disposition: HOME, SELF-CARE Condition: Stable Departure-Patient Inst. Referrals: ROSA MARIA PRADO MD (PCP/Family) Primary Care Physician Patient Instructions: Skin Rash (DC), Telangiectasia (DC) Add. Discharge Instructions: DO NOT RUB OR SCRATCH THE AFFECTED AREAS TAKE BENADRYL NEEDED FOR ITCHING FOLLOW UP WITH YOUR DR IN 2-3 DAYS FOR FURTHER CARE All discharge instructions reviewed with patient and/or family. Voiced understanding. Scripts Mometasone Furoate (Elocon) 15 Gm Cream..g. 0 TP TID, #1 TUBE Prov: PAUL IRVING DO 11/29/19 PAUL IRVING DO Nov 29, 2019 22:39
[2019-11-29] MEDS ORDERED: methylPREDNISolone 125 MG (Solu-MEDROL) VIAL IVP ONE (22:45)
[2019-11-29] MEDS ORDERED: MOME15CR17 TP (22:48)
[2019-11-29 22:54] LABS: ALANINE AMINOTRANSFERASE 51 U/L (0-55); ALBUMIN 3.4 GM/DL (3.2-4.5); ALKALINE PHOSPHATASE 87 U/L (40-136); BILIRUBIN,TOTAL 0.6 MG/DL (0.1-1.0); BUN/CREATININE RATIO 32; CALCIUM 8.7 MG/DL (8.5-10.1); CARBON DIOXIDE 22 MMOL/L (21-32); CHLORIDE 107 MMOL/L (98-107); CREATININE SERUM 1.13 MG/DL (0.60-1.30); GFR ESTIMATED > 60; GLUCOSE 178 MG/DL (70-105); POTASSIUM 3.8 MMOL/L (3.6-5.0); SODIUM 141 MMOL/L (135-145); TOTAL PROTEIN 6.1 GM/DL (6.4-8.2)
[2019-11-29 23:18] VITALS: BP 129/90
== END 2019-11-29 23:19 | disposition home or self-care (01) ==
LOC: EDUNIT# 21:39 → ER 21:40
DX: D29.4 Benign neoplasm of scrotum (principal); N50.1 Vascular disorders of male genital organs; L30.9 Dermatitis, unspecified; E11.621 Type 2 diabetes mellitus with foot ulcer; L97.529 Non-pressure chronic ulcer of other part of left foot with unspecified severity; I10 Essential (primary) hypertension; I25.2 Old myocardial infarction; E11.40 Type 2 diabetes mellitus with diabetic neuropathy, unspecified; Z86.73 Personal history of transient ischemic attack (TIA), and cerebral infarction without residual deficits; Z87.442 Personal history of urinary calculi; Z90.89 Acquired absence of other organs; Z95.5 Presence of coronary angioplasty implant and graft; Z88.8 Allergy status to other drugs, medicaments and biological substances; Z79.82 Long term (current) use of aspirin; Z79.02 Long term (current) use of antithrombotics/antiplatelets; Z79.4 Long term (current) use of insulin; Z90.49 Acquired absence of other specified parts of digestive tract
CPT/HCPCS: 36415; 80053; 82962; 85025

== ENCOUNTER 2019-12-12 10:23 | Outpatient (RCR) | payer OTHER ==
[2019-12-10 13:30] VITALS: BP 135/80
[~2019-12-12 10:23] MED LIST changes: +FUROSEMIDE 40 MG/4 ML INJ (LASIX) IVP ONE; +FUROSEMIDE 40 MG/4 ML INJ (LASIX) ONE; +MOME15CR17 TP
[2019-12-12 10:45] VITALS: BP 134/99
[2019-12-12] MEDS ORDERED: FUROSEMIDE 40 MG/4 ML INJ (LASIX) IVP ONE (14:15)
== END 2019-12-12 10:45 | disposition home or self-care (01) ==
LOC: SDC 10:23
PROVIDERS: ATTEND Family Medicine
DX: R60.9 Edema, unspecified (principal)
CPT/HCPCS: 96374

== ENCOUNTER 2019-12-17 08:52 | Outpatient (CLI) | payer OTHER ==
[~2019-12-17 08:52] MED LIST changes: -FUROSEMIDE 40 MG/4 ML INJ (LASIX) IVP ONE; -FUROSEMIDE 40 MG/4 ML INJ (LASIX) ONE
[2019-12-17] MEDS ORDERED: FUROSEMIDE 40 MG/4 ML INJ (LASIX) ONE (09:18)
[2019-12-17 09:33] LABS: HEMOGLOBIN 12.7 G/DL (13.3-17.7); MEAN PLATELET VOLUME 10.4 FL (7.4-10.4); WHITE BLOOD COUNT 5.9 10^3/uL (4.3-11.0)
[2019-12-17] MEDS ORDERED: FUROSEMIDE 40 MG/4 ML INJ (LASIX) IV NR (09:46)
[2019-12-17 09:53] LABS: ALBUMIN 3.5 GM/DL (3.2-4.5); BILIRUBIN,TOTAL 0.7 MG/DL (0.1-1.0); CALCIUM 9.2 MG/DL (8.5-10.1); CREATININE SERUM 1.34 MG/DL (0.60-1.30); POTASSIUM 4.8 MMOL/L (3.6-5.0); TOTAL PROTEIN 6.6 GM/DL (6.4-8.2)
[2019-12-17 10:00] VITALS: BP 136/79
== END 2019-12-17 09:55 | disposition home or self-care (01) ==
LOC: SDC 08:52
PROVIDERS: ATTEND Nurse Practitioner Family
DX: R60.9 Edema, unspecified (principal)
CPT/HCPCS: 36415; 80053; 83880; 85027; 96365

== ENCOUNTER 2020-01-05 09:30 | Outpatient (CLI) | payer OTHER ==
[~2020-01-05] VITALS: Ht 193 cm; Wt 111.4 kg
[~2020-01-05 09:30] MED LIST changes: -MOME15CR17 TP; +MOME15CR8 TP
== END 2020-01-05 10:00 | disposition home or self-care (01) ==
LOC: PREOP 09:30
PROVIDERS: ATTEND Surgery
DX: Z01.818 Encounter for other preprocedural examination (principal)

== ENCOUNTER → 2020-04-03 | Outpatient (CLI) | payer OTHER ==
[2020-04-03 10:09] LABS: BASOPHILS % (AUTO) 0 % (0-10); EOSINOPHILS # (AUTO) 0.2 10^3/uL (0.0-0.3); EOSINOPHILS % (AUTO) 2 % (0-10); HEMATOCRIT 42 % (40-54); HEMOGLOBIN 13.7 G/DL (13.3-17.7); LYMPHOCYTES # (AUTO) 1.6 X 10^3 (1.0-4.0); LYMPHOCYTES % (AUTO) 23 % (12-44); MEAN CORPUSCULAR HEMOGLOBIN 30 PG (25-34); MEAN CORPUSCULAR HGB CONC 33 G/DL (32-36); MEAN CORPUSCULAR VOLUME 92 FL (80-99); MEAN PLATELET VOLUME 10.7 FL (7.4-10.4); MONOCYTES # (AUTO) 0.6 X 10^3 (0.0-1.0); MONOCYTES % (AUTO) 9 % (0-12); NEUTROPHILS # (AUTO) 4.6 X 10^3 (1.8-7.8); NEUTROPHILS % (AUTO) 65 % (42-75); PLATELET COUNT 205 10^3/uL (130-400); RED CELL DISTRIBUTION WIDTH 14.3 % (10.0-14.5)
[2020-04-03 10:20] LABS: ALBUMIN 3.5 GM/DL (3.2-4.5)
[2020-04-03 10:21] LABS: POTASSIUM 4.6 MMOL/L (3.6-5.0)
[2020-04-03 10:22] LABS: CALCIUM 9.3 MG/DL (8.5-10.1)
[2020-04-03 10:23] LABS: TOTAL PROTEIN 6.9 GM/DL (6.4-8.2)
[2020-04-03 10:25] LABS: BILIRUBIN,TOTAL 0.7 MG/DL (0.1-1.0)
[2020-04-03 10:27] LABS: CREATININE SERUM 1.49 MG/DL (0.60-1.30)
[2020-04-03 10:35] LABS: VANCOMYCIN,TROUGH 16.5 UG/ML (10.0-20.0)
[2020-04-03 11:38] LABS: ERYTHROCYTE SEDIMENTATION RATE 28 MM/HR (0-30)
== END ==
LOC: LABNPT 10:03
DX: I12.9 Hypertensive chronic kidney disease with stage 1 through stage 4 chronic kidney disease, or unspecified chronic kidney disease (principal); E11.22 Type 2 diabetes mellitus with diabetic chronic kidney disease; N18.9 Chronic kidney disease, unspecified; M86.9 Osteomyelitis, unspecified
CPT/HCPCS: 80053; 80202; 85025; 85652

== ENCOUNTER → 2020-04-05 | Outpatient (CLI) | payer OTHER ==
[2020-04-05 11:16] LABS: BASOPHILS % (AUTO) 1 % (0-10); EOSINOPHILS # (AUTO) 0.2 10^3/uL (0.0-0.3); EOSINOPHILS % (AUTO) 3 % (0-10); HEMATOCRIT 41 % (40-54); HEMOGLOBIN 13.5 G/DL (13.3-17.7); LYMPHOCYTES # (AUTO) 2.1 X 10^3 (1.0-4.0); LYMPHOCYTES % (AUTO) 30 % (12-44); MEAN CORPUSCULAR HEMOGLOBIN 30 PG (25-34); MEAN CORPUSCULAR HGB CONC 33 G/DL (32-36); MEAN CORPUSCULAR VOLUME 92 FL (80-99); MONOCYTES # (AUTO) 0.6 X 10^3 (0.0-1.0); MONOCYTES % (AUTO) 9 % (0-12); NEUTROPHILS % (AUTO) 58 % (42-75); PLATELET COUNT 190 10^3/uL (130-400); RED CELL DISTRIBUTION WIDTH 13.7 % (10.0-14.5); WHITE BLOOD COUNT 6.9 10^3/uL (4.3-11.0)
[2020-04-05 11:35] LABS: ALBUMIN 3.4 GM/DL (3.2-4.5)
[2020-04-05 11:37] LABS: CALCIUM 8.5 MG/DL (8.5-10.1)
[2020-04-05 11:40] LABS: BILIRUBIN,TOTAL 0.5 MG/DL (0.1-1.0)
[2020-04-05 11:42] LABS: CREATININE SERUM 1.32 MG/DL (0.60-1.30)
[2020-04-05 11:45] LABS: ERYTHROCYTE SEDIMENTATION RATE 17 MM/HR (0-30)
== END ==
LOC: HH 09:30
PROVIDERS: ATTEND Family Medicine
DX: Z01.89 Encounter for other specified special examinations (principal)
CPT/HCPCS: 80053; 85025; 85652

== ENCOUNTER → 2020-04-09 | Outpatient (CLI) | payer OTHER | LOC: HH 11:10 | DX: Z01.89 Encounter for other specified special examinations (principal) | CPT/HCPCS: 80202 ==

== ENCOUNTER → 2020-04-12 | Outpatient (CLI) | payer OTHER ==
[2020-04-12 10:49] LABS: BASOPHILS % (AUTO) 0 % (0-10); EOSINOPHILS # (AUTO) 0.2 10^3/uL (0.0-0.3); EOSINOPHILS % (AUTO) 3 % (0-10); HEMATOCRIT 41 % (40-54); LYMPHOCYTES # (AUTO) 1.8 X 10^3 (1.0-4.0); LYMPHOCYTES % (AUTO) 29 % (12-44); MEAN CORPUSCULAR HEMOGLOBIN 30 PG (25-34); MEAN CORPUSCULAR HGB CONC 34 G/DL (32-36); MEAN CORPUSCULAR VOLUME 89 FL (80-99); MEAN PLATELET VOLUME 11.8 FL (7.4-10.4); MONOCYTES # (AUTO) 0.6 X 10^3 (0.0-1.0); MONOCYTES % (AUTO) 9 % (0-12); NEUTROPHILS # (AUTO) 3.8 X 10^3 (1.8-7.8); NEUTROPHILS % (AUTO) 60 % (42-75); PLATELET COUNT 146 10^3/uL (130-400); RED CELL DISTRIBUTION WIDTH 13.8 % (10.0-14.5); WHITE BLOOD COUNT 6.4 10^3/uL (4.3-11.0)
[2020-04-12 11:07] LABS: ERYTHROCYTE SEDIMENTATION RATE 13 MM/HR (0-30)
[2020-04-12 11:18] LABS: ALBUMIN 3.5 GM/DL (3.2-4.5); BILIRUBIN,TOTAL 0.8 MG/DL (0.1-1.0); CALCIUM 9.2 MG/DL (8.5-10.1); CREATININE SERUM 1.7 MG/DL (0.60-1.30); POTASSIUM 4.4 MMOL/L (3.6-5.0); TOTAL PROTEIN 6.6 GM/DL (6.4-8.2)
[2020-04-12 11:24] LABS: VANCOMYCIN,TROUGH 16.9 UG/ML (10.0-20.0)
== END ==
LOC: HH 10:43
PROVIDERS: ATTEND Family Medicine
DX: E11.9 Type 2 diabetes mellitus without complications (principal); M86.9 Osteomyelitis, unspecified
CPT/HCPCS: 80053; 80202; 85025; 85652

== ENCOUNTER 2020-09-09 10:05 | Emergency (ER) | payer OTHER ==
[~2020-09-09] VITALS: Ht 193 cm; Wt 113.0 kg
[~2020-09-09 10:05] MED LIST changes: +ASPI-1238 PO; -ASPI-983 PO; -PANT40TA3 PO; +PANT40TA52 PO; -RANO500T5 PO; +RANO500T6 PO; -VANC1.2514 IV; +VANC1.2523 IV
--- NOTE | 2020-09-09 10:50 | ED Integumentary General ---
General Chief Complaint: Skin/Wound Problems Stated Complaint: L LEG BLEEDING Source: patient Exam Limitations: no limitations History of Present Illness Date Seen by Provider: Sep 09, 2020 Time Seen by Provider: 10:46 Initial Comments Reports of bleeding right foot. Had a transmetatarsal amputation at [facility] 2 weeks ago for nonhealing diabetic ulcers. Comes in today with bright red blood running out of the incision. Denies any known injury. States he does use the foot to transfer but only puts weight on the heel of his foot. He arrives to ER ambulatory not using the knee scooter. Assures me hes only putting weight on the heel. Timing/Duration: just prior to arrival Severity: moderate Location: extremities Associated Symptoms: denies symptoms Allergies and Home Medications Allergies Coded Allergies: linezolid (Verified Allergy, Unknown, 06/17/19) Home Medications Acetaminophen 500 Mg Tablet, 1,000 MG PO HS, (Reported) TAKES 2 (500MG) TABLETS Aspirin 81 Mg Tab.chew, 81 MG PO DAILY, (Reported) Atorvastatin Calcium 80 Mg Tablet, 80 MG PO DAILY, (Reported) Cephalexin 500 Mg Capsule, 500 MG PO TID Prescribed by: JAJA AVITIA on 09/09/20 1158 Clonazepam 1 Mg Tablet, 2 MG PO HS, (Reported) TAKES 2 (1 MG) TABLETS Clopidogrel Bisulfate 75 Mg Tablet, 75 MG PO DAILY, (Reported) Enalapril Maleate 5 Mg Tablet, 2.5 MG PO BID, (Reported) TAKES 1/2 (5MG) TABLET Insulin Aspart 300 Units/3 Ml Solution, 10 UNITS SC TIDAC, (Reported) Insulin Degludec 200 Unit/1 Ml Insuln.pen, 50 UNITS SC DAILY, (Reported) Multivitamin 1 Each Tablet, 1 TAB PO DAILY, (Reported) Nitroglycerin 0.4 Mg Tab.subl, 0.4 MG SL UD PRN for CHEST PAIN, (Reported) Pregabalin 50 Mg Capsule, 50 MG PO HS, (Reported) Ranolazine 500 Mg Tab.er.12h, 500 MG PO BID, (Reported) Patient Home Medication List Home Medication List Reviewed: Yes Review of Systems Review of Systems Constitutional: see HPI EENTM: see HPI Respiratory: no symptoms reported Cardiovascular: no symptoms reported Genitourinary: no symptoms reported Musculoskeletal: no symptoms reported Skin: see HPI Psychiatric/Neurological: No Symptoms Reported Endocrine: No Symptoms Reported Past Tgdarvo-Cfzmyj-Legusv Hx Patient Social History 2nd Hand Smoke Exposure: No Recent Foreign Travel: No Contact w/Someone Who Travel: No Recent Hopitalizations: No (DEC 2018 HEART STENT) Immunizations Up To Date Tetanus Booster (TDap): Unknown PED Vaccines UTD: No Date of Pneumonia Vaccine: Jan 02, 2011 Date of Influenza Vaccine: Aug 07, 2019 Seasonal Allergies Seasonal Allergies: No Past Medical History Surgeries: Yes (ACL REPAIR;WRIST SURGERY;CARDIAC CATH--STENTS;ALL TOES AMPUTATED; ) Abdominal, Amputation, Appendectomy, Cardiac, Coronary Stent, Gallbladder, Orthopedic, Tonsillectomy Respiratory: No Currently Using CPAP: No Currently Using BIPAP: No Cardiac: Yes (CARDIAC CATHS--STENTS X 3-OM2, LAC, RCA) Cardiomyopathy, Coronary Artery Disease, Heart Attack, High Cholesterol, Hypertension Neurological: Yes Neuropathy, Stroke Reproductive Disorders: No Sexually Transmitted Disease: No HIV/AIDS: No Genitourinary: Yes Kidney Stones Gastrointestinal: Yes Abdominal Hernia Musculoskeletal: Yes (OSTEOMYELITIS WITH ALL TOES AMPUTATED; BACK FUSION X 3) Degenerate Disk Disease, Arthritis, Chronic Back Pain Endocrine: Yes Diabetes, Insulin dep HEENT: Yes (R EYE BLOOD CLOT/PARTIAL BLINDNESS) Loss of Vision: Denies Hearing Impairment: Denies Cancer: No Psychosocial: Yes Anxiety, Depression Integumentary: Yes (FOOT ULCERS/OSTEOMYELITIS; MULTIPLE SURGICAL WOUND INFECTIONS) Blood Disorders: No Adverse Reaction/Blood Tranf: No Family Medical History Family history: Cardiovascular disease 19 FATHER Family history: Diabetes mellitus 19 MOTHER Heart Disease, COPD, Diabetes, Hypertension, Psychiatric Problems, Renal Disease, Vascular Disease PSH: -BILATERAL KNEE SCOPES, WITH OPEN LEFT ACL REPAIR -ALL TOES AMPUTATED BILATERAL FEET -MULTIPLE DEBRIDEMENTS OF FOOT ULCERS -MULTIPLE CARDIAC CATHS-- ANGIOPLASTIES AND STENTS X 3--STENT TO [facility] HERE 05/2018, THEN TRANSFERED TO [facility] AND HAD STENT TO LAD ( COMPLICATED BY SEPSIS DUE TO LEFT FOOT ULCER AND WAS INTUBATED AND HAD PROLONGED HOSPITALIZATIONS/REHAB, AND HAD TOE AMPUTATION) ; HAD STENT TO RCA 01/02/19 -BACK SURGERY/FUSION X 3 -TONSILLECTOMY -APPENDECTOMY -CHOLECYSTECTOMY -HERNIA REPAIR WITH INFECTION/COMPLICATIONS -PORT RIGHT CHEST PLACED/REMOVED DUE TO INFECTION -MANY TEETH REMOVED Physical Exam Vital Signs Capillary Refill : General Appearance: WD/WN, no apparent distress Respiratory: no respiratory distress, no accessory muscle use Neurologic/Psychiatric: alert, normal mood/affect, oriented x 3 Skin: normal color, warm/dry Skin Problem Location: lower extremities (There is a transmetatarsal amputation to the left foot. Stitches remain intact. Tissues are taut around this but there is no active bleeding. There is some bright red clotted blood in his shoe and with Lamont bleeding. However is not bleeding now even when I scrubbed it with chlorhexidine/saline solution and I do not want to make it rebleed.) Progress/Results/Core Measures Results/Orders Lab Results Laboratory Tests Test 09/09/20 11:30 Range/Units White Blood Count 6.3 4.3-11.0 10^3/uL Red Blood Count 4.54 4.30-5.52 10^6/uL Hemoglobin 13.8 13.3-17.7 g/dL Hematocrit 41 40-54 % Mean Corpuscular Volume 90 80-99 fL Mean Corpuscular Hemoglobin 30 25-34 pg Mean Corpuscular Hemoglobin Concent 34 32-36 g/dL Red Cell Distribution Width 13.0 10.0-14.5 % Platelet Count 197 130-400 10^3/uL Mean Platelet Volume 9.7 9.0-12.2 fL Immature Granulocyte % (Auto) 0 % Neutrophils (%) (Auto) 61 42-75 % Lymphocytes (%) (Auto) 30 12-44 % Monocytes (%) (Auto) 8 0-12 % Eosinophils (%) (Auto) 1 0-10 % Basophils (%) (Auto) 0 0-10 % Neutrophils # (Auto) 3.8 1.8-7.8 10^3/uL Lymphocytes # (Auto) 1.9 1.0-4.0 10^3/uL Monocytes # (Auto) 0.5 0.0-1.0 10^3/uL Eosinophils # (Auto) 0.1 0.0-0.3 10^3/uL Basophils # (Auto) 0.0 0.0-0.1 10^3/uL Immature Granulocyte # (Auto) 0.0 0.0-0.1 10^3/uL My Orders Orders - JAJA AVITIA APRN Cbc With Automated Diff (09/09/20 11:02) Departure Communication (Admissions) [id number] with Dr. Garcia's nurse who then spoke with him. Would recommend some Keflex, suspect is not keeping weight off of that as he should be and I would agree with this. He is to go home, absolutely no weightbearing on the this foot and follow-up with Dr. Garcia on the . There has still been no bleeding since he got here. Impression Primary Impression: Postoperative bleeding from incision Disposition: HOME, SELF-CARE Condition: Stable Departure-Patient Inst. Decision time for Depature: 11:56 Referrals: ROSA MARIA PRADO MD (PCP/Family) Primary Care Physician Patient Instructions: Bleeding After Surgery Add. Discharge Instructions: 1. Do not put any weight on the right foot even to transfer even on the heel of the foot. Elevate this as much as possible. When you go home sit in a recliner and elevate the feet and put a pillow beneath this to further elevate it. Return to ER for any concerns. Antibiotic as directed. Keep your appointment with Dr. Garcia. All discharge instructions reviewed with patient and/or family. Voiced understanding. Scripts Cephalexin (Keflex) 500 Mg Capsule 500 MG PO TID, #21 CAP Prov: JAJA AVITIA DIGITAL MARKETING ASSOCIATE 09/09/20 JAJA AVITIA APRN Sep 09, 2020 10:50
[2020-09-09 11:38] LABS: BASOPHILS % (AUTO) 0 % (0-10); EOSINOPHILS # (AUTO) 0.1 10^3/uL (0.0-0.3); EOSINOPHILS % (AUTO) 1 % (0-10); HEMATOCRIT 41 % (40-54); HEMOGLOBIN 13.8 g/dL (13.3-17.7); LYMPHOCYTES # (AUTO) 1.9 10^3/uL (1.0-4.0); LYMPHOCYTES % (AUTO) 30 % (12-44); MEAN CORPUSCULAR HEMOGLOBIN 30 pg (25-34); MEAN CORPUSCULAR HGB CONC 34 g/dL (32-36); MEAN CORPUSCULAR VOLUME 90 fL (80-99); MEAN PLATELET VOLUME 9.7 fL (9.0-12.2); MONOCYTES # (AUTO) 0.5 10^3/uL (0.0-1.0); MONOCYTES % (AUTO) 8 % (0-12); NEUTROPHILS # (AUTO) 3.8 10^3/uL (1.8-7.8); NEUTROPHILS % (AUTO) 61 % (42-75); PLATELET COUNT 197 10^3/uL (130-400); WHITE BLOOD COUNT 6.3 10^3/uL (4.3-11.0)
[2020-09-09] MEDS ORDERED: CEPH-507 PO (11:58)
[2020-09-09 12:20] VITALS: BP 144/99
== END 2020-09-09 12:20 | disposition home or self-care (01) ==
LOC: EDUNIT# 10:05 → ER 10:08
DX: M96.830 Postprocedural hemorrhage of a musculoskeletal structure following a musculoskeletal system procedure (principal); I25.2 Old myocardial infarction; E78.00 Pure hypercholesterolemia, unspecified; I10 Essential (primary) hypertension; E11.9 Type 2 diabetes mellitus without complications; F41.9 Anxiety disorder, unspecified; Z82.49 Family history of ischemic heart disease and other diseases of the circulatory system; Z83.3 Family history of diabetes mellitus; Z95.5 Presence of coronary angioplasty implant and graft; Z88.8 Allergy status to other drugs, medicaments and biological substances; Z79.82 Long term (current) use of aspirin; Z79.4 Long term (current) use of insulin
CPT/HCPCS: 36415; 85025

== ENCOUNTER 2020-09-10 04:03 | Inpatient (IN) | payer OTHER ==
[~2020-09-10] VITALS: Ht 193 cm; Wt 113.3 kg
[2020-09-10 04:35] LABS: BASOPHILS % (AUTO) 0 % (0-10); EOSINOPHILS # (AUTO) 0.1 10^3/uL (0.0-0.3); EOSINOPHILS % (AUTO) 1 % (0-10); HEMATOCRIT 33 % (40-54); HEMOGLOBIN 11.4 g/dL (13.3-17.7); LYMPHOCYTES % (AUTO) 40 % (12-44); MEAN CORPUSCULAR HEMOGLOBIN 31 pg (25-34); MEAN CORPUSCULAR HGB CONC 34 g/dL (32-36); MEAN CORPUSCULAR VOLUME 90 fL (80-99); MEAN PLATELET VOLUME 10.2 fL (9.0-12.2); MONOCYTES # (AUTO) 0.6 10^3/uL (0.0-1.0); MONOCYTES % (AUTO) 9 % (0-12); NEUTROPHILS # (AUTO) 3.7 10^3/uL (1.8-7.8); NEUTROPHILS % (AUTO) 50 % (42-75); PLATELET COUNT 205 10^3/uL (130-400); WHITE BLOOD COUNT 7.5 10^3/uL (4.3-11.0)
[2020-09-10 04:42] LABS: CHLORIDE 101 MMOL/L (98-107); POTASSIUM 3.5 MMOL/L (3.6-5.0); SODIUM 139 MMOL/L (135-145)
--- NOTE | 2020-09-10 04:42 | ED Syncope ---
General Chief Complaint: Trauma-Non Activation Stated Complaint: INCISION BLEEDING,WEAKNESS Nursing Triage Note: syncopal episode in restroom, fall from seated position. bruising/laceration to right eye. increased bleeding from left foot surgical amputation site. 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 He is not having any significant pain except for around his right eye where he struck the drywall. EMS reports that he didn't to that and had c-collar placed much to his sugar in. He's been more somnolent for EMS. He denies being on blood thinners. He stopped taking his Plavix before the surgery and has not restarted it yet. He says he was here yesterday because of bleeding from the foot and they just talked to the surgeon and then redressed it because it was not bleeding at the time. He is not having any shortness of breath chest pain nausea sweats dysuria diarrhea constipation. Surgeon Dr Garcia, Dr Michael Cervantes and Dr Ha, PCP. Cardiac catheterization in 04/[address] Lopez: Moderate coronary artery disease with patent stent in the mid LAD and second obtuse marginal and distal right coronary artery. First obtuse marginal is chronically occluded. Impairment of the left ventricular systolic system with an EF of 40-55% and apical akinesis. Mild elevation of the left ventricular end- diastolic pressure. Allergies and Home Medications Allergies Coded Allergies: linezolid (Verified Allergy, Unknown, 06/17/19) Home Medications Acetaminophen 500 Mg Tablet, 1,000 MG PO HS, (Reported) TAKES 2 (500MG) TABLETS Aspirin 81 Mg Tab.chew, 81 MG PO DAILY, (Reported) Atorvastatin Calcium 80 Mg Tablet, 80 MG PO DAILY, (Reported) Cephalexin 500 Mg Capsule, 500 MG PO TID Prescribed by: JAJA AVITIA on 09/09/20 1158 Clonazepam 1 Mg Tablet, 2 MG PO HS, (Reported) TAKES 2 (1 MG) TABLETS Clopidogrel Bisulfate 75 Mg Tablet, 75 MG PO DAILY, (Reported) Enalapril Maleate 5 Mg Tablet, 2.5 MG PO BID, (Reported) TAKES 1/2 (5MG) TABLET Insulin Aspart 300 Units/3 Ml Solution, 10 UNITS SC TIDAC, (Reported) Insulin Degludec 200 Unit/1 Ml Insuln.pen, 50 UNITS SC DAILY, (Reported) Multivitamin 1 Each Tablet, 1 TAB PO DAILY, (Reported) Nitroglycerin 0.4 Mg Tab.subl, 0.4 MG SL UD PRN for CHEST PAIN, (Reported) Pregabalin 50 Mg Capsule, 50 MG PO HS, (Reported) Ranolazine 500 Mg Tab.er.12h, 500 MG PO BID, (Reported) Patient Home Medication List Home Medication List Reviewed: Yes Review of Systems Constitutional: No chills, No diaphoresis EENTM: No ear discharge, No ear pain Respiratory: No cough, No short of breath Cardiovascular: No chest pain, No edema, No syncope Gastrointestinal: No abdominal pain, No constipation, No diarrhea Genitourinary: No dysuria, No pain Musculoskeletal: No back pain, No joint pain, No joint swelling All Other Systems Reviewed Negative Unless Noted: Yes Past Fjufetw-Ukqrcv-Hcwvnt Hx Patient Social History Alcohol Use: Denies Use Recreational Drug Use: No Smoking Status: Never a Smoker 2nd Hand Smoke Exposure: No Recent Foreign Travel: No Contact w/Someone Who Travel: No Recent Infectious Disease Expo: No Recent Hopitalizations: Yes (Aug FOOT PARTIAL LEFT FOOT AMPUTATION) Physical Abuse: No Sexual Abuse: No Mistreated: No Fear: No Immunizations Up To Date Tetanus Booster (TDap): Unknown PED Vaccines UTD: No Date of Pneumonia Vaccine: Jan 02, 2011 Date of Influenza Vaccine: Aug 07, 2019 Seasonal Allergies Seasonal Allergies: No Past Medical History Surgeries: Yes (ACL REPAIR;WRIST SURGERY;CARDIAC CATH--STENTS;ALL TOES AMPUTATED; ) Abdominal, Amputation, Appendectomy, Cardiac, Coronary Stent, Gallbladder, Orthopedic, Tonsillectomy Respiratory: No Currently Using CPAP: No Currently Using BIPAP: No Cardiac: Yes (CARDIAC CATHS--STENTS X 3-OM2, LAC, RCA) Cardiomyopathy, Coronary Artery Disease, Heart Attack, High Cholesterol, Hypertension Neurological: Yes Neuropathy, Stroke Reproductive Disorders: No Sexually Transmitted Disease: No HIV/AIDS: No Genitourinary: Yes Kidney Stones Gastrointestinal: Yes Abdominal Hernia Musculoskeletal: Yes (OSTEOMYELITIS WITH ALL TOES AMPUTATED; BACK FUSION X 3) Degenerate Disk Disease, Arthritis, Chronic Back Pain Endocrine: Yes Diabetes, Insulin dep HEENT: Yes (R EYE BLOOD CLOT/PARTIAL BLINDNESS) Loss of Vision: Denies Hearing Impairment: Denies Cancer: No Psychosocial: Yes Anxiety, Depression Integumentary: Yes (FOOT ULCERS/OSTEOMYELITIS; MULTIPLE SURGICAL WOUND INFECTIONS) Blood Disorders: No Adverse Reaction/Blood Tranf: No Family Medical History Family history: Cardiovascular disease 19 FATHER Family history: Diabetes mellitus 19 MOTHER Heart Disease, COPD, Diabetes, Hypertension, Psychiatric Problems, Renal Disease, Vascular Disease PSH: -BILATERAL KNEE SCOPES, WITH OPEN LEFT ACL REPAIR -ALL TOES AMPUTATED BILATERAL FEET -MULTIPLE DEBRIDEMENTS OF FOOT ULCERS -MULTIPLE CARDIAC CATHS-- ANGIOPLASTIES AND STENTS X 3--STENT TO OM2 HERE 05/2018, THEN TRANSFERED TO [facility] [place] AND HAD STENT TO LAD ( COMPLICATED BY SEPSIS DUE TO LEFT FOOT ULCER AND WAS INTUBATED AND HAD PROLONGED HOSPITALIZATIONS/REHAB, AND HAD TOE AMPUTATION) ; HAD STENT TO RCA 01/02/19 -BACK SURGERY/FUSION X 3 -TONSILLECTOMY -APPENDECTOMY -CHOLECYSTECTOMY -HERNIA REPAIR WITH INFECTION/COMPLICATIONS -PORT RIGHT CHEST PLACED/REMOVED DUE TO INFECTION -MANY TEETH REMOVED Physical Exam Vital Signs Vital Signs - First Documented 09/10/20 04:05 Temp 35.4 Pulse 89 Resp 18 B/P (MAP) 114/89 (97) Pulse Ox 100 O2 Delivery Room Air Capillary Refill : Less Than 3 Seconds Height, Weight, BMI Height: 6'4.00" Weight: 240lbs. 3.0oz. 108.293302vd; 30.00 BMI Method:Stated General Appearance: No Apparent Distress, WD/WN HEENT: PERRL/EOMI, TMs Normal, Normal ENT Inspection, Pharynx Normal, Moist Mucous Membranes, Other (mild ecchymoses and swelling surrounding the right eye with tenderness to palpation. No limitation to extraocular movement.) Neck: Full Range of Motion, Normal Inspection Cardiovascular: Regular Rate, Rhythm, Normal Peripheral Pulses Respiratory: Normal Breath Sounds, No Accessory Muscle Use, No Respiratory Distress Gastrointestinal: Normal Bowel Sounds, No Organomegaly Extremities: Normal Capillary Refill, Other (And dusky, beefy macerated surgical wound on the left forefoot with some slow weeping of sanguinous drainage. 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 Norm as Tested, Other (GCS 14) Cranial Nerves: Normal Hearing, Normal Speech, PERRL Skin: Warm/Dry Progress/Results/Core Measures Results/Orders Lab Results Laboratory Tests Test 09/10/20 04:28 Range/Units White Blood Count 7.5 4.3-11.0 10^3/uL Red Blood Count 3.73 L 4.30-5.52 10^6/uL Hemoglobin 11.4 L 13.3-17.7 g/dL Hematocrit 33 L 40-54 % Mean Corpuscular Volume 90 80-99 fL Mean Corpuscular Hemoglobin 31 25-34 pg Mean Corpuscular Hemoglobin Concent 34 32-36 g/dL Red Cell Distribution Width 13.2 10.0-14.5 % Platelet Count 205 130-400 10^3/uL Mean Platelet Volume 10.2 9.0-12.2 fL Immature Granulocyte % (Auto) 0 % Neutrophils (%) (Auto) 50 42-75 % Lymphocytes (%) (Auto) 40 12-44 % Monocytes (%) (Auto) 9 0-12 % Eosinophils (%) (Auto) 1 0-10 % Basophils (%) (Auto) 0 0-10 % Neutrophils # (Auto) 3.7 1.8-7.8 10^3/uL Lymphocytes # (Auto) 3.0 1.0-4.0 10^3/uL Monocytes # (Auto) 0.6 0.0-1.0 10^3/uL Eosinophils # (Auto) 0.1 0.0-0.3 10^3/uL Basophils # (Auto) 0.0 0.0-0.1 10^3/uL Immature Granulocyte # (Auto) 0.0 0.0-0.1 10^3/uL Sodium Level 139 135-145 MMOL/L Potassium Level 3.5 L 3.6-5.0 MMOL/L Chloride Level 101 98-107 MMOL/L Carbon Dioxide Level 26 21-32 MMOL/L Anion Gap 12 5-14 MMOL/L Blood Urea Nitrogen 14 7-18 MG/DL Creatinine 1.17 0.60-1.30 MG/DL Estimat Glomerular Filtration Rate > 60 BUN/Creatinine Ratio 12 Glucose Level 211 H 70-105 MG/DL Calcium Level 8.2 L 8.5-10.1 MG/DL Corrected Calcium 9.0 8.5-10.1 MG/DL Total Bilirubin 0.9 0.1-1.0 MG/DL Aspartate Amino Transf (AST/SGOT) 17 5-34 U/L Alanine Aminotransferase (ALT/SGPT) 14 0-55 U/L Alkaline Phosphatase 96 40-136 U/L Troponin I 0.180 H <0.028 NG/ML B-Type Natriuretic Peptide 135.1 H <100.0 PG/ML Total Protein 6.3 L 6.4-8.2 GM/DL Albumin 3.0 L 3.2-4.5 GM/DL My Orders Orders - KAYLEN MOHAMUD Continuous Ekg Monitoring (09/10/20 04:14) Ekg Tracing (09/10/20 04:14) Troponin I (09/10/20 04:14) BNP (09/10/20 04:14) Cbc With Automated Diff (09/10/20 04:14) Comprehensive Metabolic Panel (09/10/20 04:14) Ct Head/Face/Cervical Wo (09/10/20 04:14) Aspirin Chewable Tablet (Baby Aspirin Ch (09/10/20 04:45) Ondansetron Injection (Zofran Injectio (09/10/20 04:45) Nitroglycerin 0.4 Mg Btl 25's (Nitrostat (09/10/20 04:45) Aspirin Chewable Tablet (Baby Aspirin Ch (09/10/20 04:45) Ondansetron Injection (Zofran Injectio (09/10/20 04:46) Nitroglycerin 0.4 Mg Btl 25's (Nitrostat (09/10/20 04:46) Ns Iv 1000 Ml (Sodium Chloride 0.9%) (09/10/20 04:47) Chest 1 View, Ap/Pa Only (09/10/20 04:52) Ed Iv/Invasive Line Start (09/10/20 05:10) Ns Iv 1000 Ml (Sodium Chloride 0.9%) (09/10/20 05:10) Medications Given in ED Current Medications Medications Dose Ordered Sig/Aylin Route Start Time Stop Time Status Last Admin Dose Admin Aspirin 324 mg ONCE ONCE PO 09/10/20 04:45 09/10/20 04:49 DC 09/10/20 04:51 324 MG Nitroglycerin 0.4 mg NEEDED PRN SL 09/10/20 04:45 09/10/20 04:52 0.4 MG Ondansetron HCl 8 mg ONCE ONCE IVP 09/10/20 04:45 09/10/20 04:49 DC 09/10/20 04:51 8 MG Sodium Chloride 1,000 ml @ ud STK-MED ONCE .ROUTE 09/10/20 04:47 09/10/20 04:49 DC 09/10/20 04:54 100 MLS/HR Vital Signs/I&O 09/10/20 04:05 Temp 35.4 Pulse 89 Resp 18 B/P (MAP) 114/89 (97) Pulse Ox 100 O2 Delivery Room Air Blood Pressure Mean: 97 Progress Progress Note #1: Time: 04:41 Progress Note Syncopal episode workup including a CT of the head face and neck. EKG and labs. Initial EKG shows some ST elevation approximately 1-2 boxes in the inferior leads. Progress Note #2: Time: 04:44 Progress Note Patient just now started endorsing chest pain radiating to his left shoulder. He denied this several times on initial workup. This coinciding with his syncope and his ST elevation in the inferior leads with his history of extensive coronary disease prompted us to call the size changer. He would like us to rule out head bleed swiftly and safely as possible. He will review the EKG. Progress Note #3: Time: 04:56 Progress Note Manager Product Design paged out. Patient's blood pressure after a dose of nitroglycerin came down to the 80s systolic so a second liter of fluids was initiated and he was placed in Trendelenburg which brought him up to 90/72. We'll continue to monitor. Progress Note #4: Time: 05:20 Progress Note C-collar cleared radiographically and clinically. Heparin 5000 unit bolus IV per cardiology. Brilinta 180 mg by mouth. Morphine 2 mg IV. Blood pressure has significantly recovered to 119/79. Initial ECG Impression Date: Sep 10, 2020 Initial ECG Impression Time: 04:23 Initial ECG Rate: 84 Initial ECG Rhythm: Normal Sinus Initial ECG Intervals: QT (486) Initial ECG Impression: Acute MD Initial ECG Comparisson: Changed Comment Inferior ST elevation concerning for ST elevation MD. Diagnostic Imaging Diagonstic Imaging: Xray Plain Films/CT/US/NM/MRI: chest Comments No acute cardiopulmonary processes on one view chest x-ray. Reviewed: Reviewed by Me Diagonstic Imaging: CT Plain Films/CT/US/NM/MRI: facial bones, c-spine, head Comments No intracranial hemorrhage mass effect or midline shift. No calvarial fracture. No C-spine malalignment, subluxation or acute fracture. No facial fracture. Reviewed: Reviewed Night Hawk Study, Reviewed by Me Departure Communication (Admissions) Time/Spoke to Admitting Phy: 04:55 Dr Brennan: He is on his way to take patient to Manager Product Design. We did review the previous catheterization and EKGs from 2019. He would like bolus dose of heparin and Brilinta. Impression Primary Impression: STEMI (ST elevation myocardial infarction) Qualified Codes: I21.19 - ST elevation (STEMI) myocardial infarction involving other coronary artery of inferior wall Additional Impressions: Syncope and collapse Ecchymosis of eye Qualified Codes: S05.11XA - Contusion of eyeball and orbital tissues, right eye, initial encounter Hemorrhage from wound Disposition: 09 ADMITTED INPATIENT Condition: Critical Admissions Decision to Admit Reason: Admit from ER (General) Decision to Admit/Date: Sep 10, 2020 Time/Decision to Admit Time: 04:55 Departure-Patient Inst. Referrals: ROSA MARIA HA MD (PCP/Family) Primary Care Physician KAYLEN MOHAMUD Sep 10, 2020 04:42
[2020-09-10 04:43] LABS: CALCIUM 8.2 MG/DL (8.5-10.1)
[2020-09-10 04:44] LABS: GLUCOSE 211 MG/DL (70-105); TOTAL PROTEIN 6.3 GM/DL (6.4-8.2)
[2020-09-10 04:45] LABS: CARBON DIOXIDE 26 MMOL/L (21-32)
[2020-09-10] MEDS ORDERED: ASPIRIN 81 MG CHEW (CHILDREN'S ASA) PO ONE (04:45)
[2020-09-10] MEDS ORDERED: ONDANSETRON 4 MG/2 ML (SDV) Z0FRAN IVP ONE (04:45)
[2020-09-10] MEDS ORDERED: NITROGLYCERIN 0.4 MG SL TABS BTL 25'S SL PRN (04:45)
[2020-09-10] MEDS ORDERED: ASPIRIN 81 MG CHEW (CHILDREN'S ASA) ONE (04:45)
[2020-09-10 04:46] LABS: BILIRUBIN,TOTAL 0.9 MG/DL (0.1-1.0)
[2020-09-10] MEDS ORDERED: ONDANSETRON 4 MG/2 ML (SDV) Z0FRAN ONE (04:46)
[2020-09-10] MEDS ORDERED: NITROGLYCERIN 0.4 MG SL TABS BTL 25'S SL ONE (04:46)
[2020-09-10 04:47] LABS: ALKALINE PHOSPHATASE 96 U/L (40-136)
[2020-09-10] MEDS ORDERED: NS IV 1000 ML 1,000 ML ONE ×2 (04:47→06:44)
[2020-09-10 04:48] LABS: CREATININE SERUM 1.17 MG/DL (0.60-1.30); GFR ESTIMATED > 60
[2020-09-10 04:49] LABS: BUN/CREATININE RATIO 12
[2020-09-10 04:51] LABS: ALANINE AMINOTRANSFERASE 14 U/L (0-55)
--- NOTE | 2020-09-10 04:57 | NUR ---
2nd dose ntg held d/t low bp. erp at bedside.
--- NOTE | 2020-09-10 05:00 | NUR ---
denture laboratory technician called in
[2020-09-10] MEDS ORDERED: NS IV 1000 ML 1,000 ML IV SCH (05:10)
--- NOTE | 2020-09-10 05:13 | NUR ---
family updated by dr chen.
[2020-09-10] MEDS ORDERED: morphine INJ 10 MG/ML 1ML (SYR OR VIAL) IVP STA (05:17)
[2020-09-10] MEDS ORDERED: TICAGRELOR 90 MG TABLET (BRILINTA) PO ONE (05:30)
[2020-09-10] MEDS ORDERED: HEParin 1000 UNIT/ML (10ML VIAL) FOR BOLUS IV SCH (05:30)
[2020-09-10 05:40] VITALS: BP 115/75
--- NOTE | 2020-09-10 06:02 | Diagnostic Imaging Report ---
CLINICAL INDICATION: Patient chest pain with syncopal episode of restroom. Patient status post fall from seated position. Patient has bruising laceration right eye. EXAM: Portable chest x-ray upright view. COMPARISONS: Chest x-ray dated 08/29/2019. FINDINGS: Slight low lung volumes are noted. The suspected mild bibasilar atelectasis. There is slight prominence of right perihilar region which may be related to crowding from low lung volumes. There is no pleural effusion or pneumothorax. Pulmonary vasculature and cardiac silhouette is within normal limits for portable projection. Bones show no significant abnormality. IMPRESSION: Slight low lung volumes with mild bibasilar atelectasis. Otherwise, there is no radiographic evidence of acute cardiopulmonary process. Dictated by: Dictated on workstation # [id number]
[2020-09-10] MEDS ORDERED: LIDOCAINE 1% INJ 20 ML 20 ML VIAL ONE (06:43)
[2020-09-10] MEDS ORDERED: NITRO DRIP 25000 MCG/D5W 250 ML IV ONE (06:44)
[2020-09-10] MEDS ORDERED: MIDAZOLAM 5 MG/5 ML (VERSED) VIAL ONE (06:44)
[2020-09-10] MEDS ORDERED: HEParin (CATH LAB) 2,000 ML IV ONE (06:44)
[2020-09-10] MEDS ORDERED: fentaNYL INJECTION 100 MCG/2 ML AMP ONE (06:44)
[2020-09-10] MEDS ORDERED: HEParin 1000 UNIT/ML (10ML VIAL) FOR BOLUS ONE (06:44)
--- NOTE | 2020-09-10 06:57 | Coronary Angiography & PCI ---
Coronary Angiography & PCI DATE OF PROCEDURE: 09/10/20 INDICATION: Inferior STEMI PREOPERATIVE DIAGNOSIS: Inferior STEMI POSTOPERATIVE DIAGNOSIS: Severe distal RCA stenosis treated successfully with a drug-eluting stent. HISTORY: This is a 60-year-old gentleman with previous history of CAD, GA, PCI. He presents with history of possible passing out. He presented to the ER at around 4 a.m with altered mental status and profusely bleeding left foot. CT scan was done to rule out a bleed. EKG was done at 4. [address] a[address] E[address] elevations. Patient was not having any chest pain initially. Patient developed chest pain at 4.45 a.m. cardiology was called at 4.45 a.m. urgent coronary angiography was recommended. PROCEDURES PERFORMED: 1.Coronary angiography. 2.Left heart catheterization. 3.PCI to the distal RCA with drug-eluting stent. COMPLICATIONS: None. SPECIMENS: None. ESTIMATED BLOOD LOSS: 10 mL ANESTHESIA: Conscious sedation ANTICOAGULATION: IV heparin CONTRAST: 196 mL. FLUOROSCOPY: 9.1 minutes. FLOUROSCOPY DOSE: 257 mgy. PROCEDURE DETAILS: The patient is a 60 male and was brought to the labor relations teacher after informed consent was taken. All the risks and complications were explained in detail; this included the risk of bleeding, vascular damage, stroke, GA and even . The patient was draped and prepped in the usual sterile fashion. Access was gained in the right femoral artery with a 6 Egyptian sheath. Right coronary angiography was done with the JR4 guide catheter, left coronary angiography was performed with a JL4 catheter. Left heart catheterization was performed with a pigtail catheter. FINDINGS: 1.Left main: Patent. 2.LAD: Patent stent in LAD. Mild distal disease. 3.Left circumflex artery: Known occluded OM1. Patent stent in OM 2. 4.RCA: Severe distal stenosis. Stenosis severity 95 percent with significant haziness suggesting significant thrombus burden. This was the culprit artery. 5.Left heart catheterization: Aortic pressure 133/63 mmHg. LV pressure 139/3 mmHg. LVEDP 13 mmHg. Mildly reduced LV function with inferior and apical hypokinesis. RECOMMENDATIONS: PCI to distal RCA is recommended. INTERVENTION DETAILS: JR4 guide catheter, whisper extra-support guidewire, IV heparin. The lesion was crossed with the whisper wire. Initial balloon dilatation was done with an emerge 2.0 x 15 mm balloon. Resolute integrity 3.0 x 22 mm stent placed at 9 bibiana for 18 seconds. Postdilated with an NC Quantum 3.5 x 15 mm balloon at 16 bibiana. Excellent results with post-angiogram showing ROBER-3 flow with no residual stenosis. Minx closure to RFA. Patient tolerated procedure well and did not have any complication. He left the catheter lab with stable hemodynamics. CONCLUSIONS: 1. Inferior STEMI, PCI to distal RCA done with drug-eluting stent. 2. Patent stent in OM 2 and mid LAD. Known occluded OM1. 3. Long-term dual antiplatelet therapy. 4. Internal medicine consultation for altered mental status. Podiatry consultation for bleeding left foot. Casper Brennan MD, FACP, FACC, [facility] Interventional Cardiology Chris BRENNAN MD Sep 10, 2020 06:57
--- NOTE | 2020-09-10 06:57 | History & Physicial-Cardiolgy ---
HPI-Cardiology Cardiology Consultation: Date of Consultation 09/10/20 Date of Admission Attending Physician Chris Brennan MD Admitting Physician Melida Ha MD Consulting Physician Chris BRENNAN MD HPI: Time Seen by a Provider: 06:00 Chief Complaint: Chest pain This is a 60-year-old gentleman with previous history of CAD, AR, PCI. He presents with history of possible passing out. He presented to the ER at around 4 a.m with altered mental status and profusely bleeding left foot. CT scan was done to rule out a bleed. EKG was done at 4. 23 a.m. EKG showed inferior ST elevations. Patient was not having any chest pain initially. Patient developed chest pain at 4.45 a.m. cardiology was called at 4.45 a.m. urgent coronary angiography was recommended. Review of Systems-Cardiology Review of Systems Constitutional: As described under HPI; No As described under HPI, No no symptoms reported, No chills, No fever, No lightheadedness Eyes: No As described under HPI, No no symptoms reported, No blindness, No blurred vision, No contact lenses, No drainage, No decreased acuity, No foreign body sensation, No pain, No vision change Ears/Nose/Throat: No As described under HPI, No no symptoms reported, No chronic hearing loss, No ear discharge, No ear pain, No nasal drainage, No ulcerations Respiratory: No no symptoms reported; As described under HPI; No As described under HPI, No cough, No orthopnea, No shortness of breath, No SOB with excertion Cardiovascular: No no symptoms reported; As described under HPI; No As described under HPI; chest pain; No edema, No irregular heart rate, No lightheadedness, No palpitations Gastrointestinal: No no symptoms reported, No As described under HPI, No abdomen distended, No abdominal pain, No blood streaked bowels, No constipation, No diarrhea, No nausea, No vomiting, No stool coloration changes Genitourinary: No As described under HPI, No burning, No dysuria, No discharge, No frequency, No flank pain, No hematuria, No urgency Skin: No rash, No skin related problems, No ulcerations Psychiatric/Neurological: As described under HPI; No anxiety, No depression, No seizure, No focal weakness, No syncope Hematologic: No bleeding abnormalities All Other Systems Reviewed Negative Unless Noted: Yes GMI-Kvgxpa-Cufgga Hx Patient Social History Alcohol Use: Denies Use Recreational Drug Use: No Smoking Status: Never a Smoker 2nd Hand Smoke Exposure: No Recent Foreign Travel: No Recent Infectious Disease Expo: No Hospitalization with Isolation: Denies Immunizations Up To Date Tetanus Booster (TDap): Unknown Date of Pneumonia Vaccine: Jan 02, 2011 Date of Influenza Vaccine: Aug 07, 2019 Past Medical History PMH As described under Assessment. Family Medical History Family History: Family history: Cardiovascular disease 19 FATHER Family history: Diabetes mellitus 19 MOTHER Allergies and Home Medications Allergies Coded Allergies: linezolid (Verified Allergy, Unknown, 06/17/19) Home Medications Acetaminophen 500 Mg Tablet, 1,000 MG PO HS, (Reported) TAKES 2 (500MG) TABLETS Aspirin 81 Mg Tab.chew, 81 MG PO DAILY, (Reported) Atorvastatin Calcium 80 Mg Tablet, 80 MG PO DAILY, (Reported) Carvedilol 6.25 Mg Tablet, 6.25 MG PO BID Prescribed by: SUZY WILSON on 09/12/201311 Clonazepam 1 Mg Tablet, 2 MG PO HS, (Reported) TAKES 2 (1 MG) TABLETS Clopidogrel Bisulfate 75 Mg Tablet, 75 MG PO DAILY, (Reported) Insulin Aspart 300 Units/3 Ml Solution, 10 UNITS SC TIDAC, (Reported) Insulin Degludec 200 Unit/1 Ml Insuln.pen, 50 UNITS SC DAILY, (Reported) Lisinopril 5 Mg Tablet, 5 MG PO DAILY Prescribed by: SUZY WILSON on 09/12/201311 Multivitamin 1 Each Tablet, 1 TAB PO DAILY, (Reported) Nitroglycerin 0.4 Mg Tab.subl, 0.4 MG SL UD PRN for CHEST PAIN, (Reported) Pregabalin 50 Mg Capsule, 50 MG PO HS, (Reported) Ranolazine 500 Mg Tab.er.12h, 500 MG PO BID, (Reported) Ticagrelor 90 Mg Tablet, 90 MG PO BID Prescribed by: SUZY WILSON on 09/12/20 131 Patient Home Medication List Home Medication List Reviewed: Yes Physical Exam-Cardiology Physical Exam Vital Signs/I&O Capillary Refill : Less Than 3 Seconds Constitutional: appears stated age; No apparent distress; well-developed, well- nourished HEENT: PERRL; No discharge; hearing is well preserved, oral hygience is good; No ulceration, No xanthelasmas are seen Neck: No carotid bruit; carotid pulses are 2 + bilaterally Respiratory: chest is bilaterally symmetric Cardiovascular: regular rate-rhythm, S1 and S2 Gastrointestinal: soft, audible bowel sounds; No spleenomegaly Rectal: deferred Extremities: normal range of motion, non-tender, normal inspection, other (bleeding left foot); No clubbing, No cyanosis, No significant edema Neurologic/Psychiatric: alert, oriented x 3, other (slow affect), grossly intact, power is 5/5 both on sides Skin: normal color; No rash, No ulcerations Data Review Labs Microbiology 09/10/20 MRSA Screen - Final, Complete MRSA not isolated ECG Impression ECG Initial ECG Rhythm: Normal Sinus Initial ECG Impression: Acute AR A/P-Cardiology Assessment/Admission Diagnosis Inferior STEMI, Altered mental status, Profusely bleeding left foot, History of CAD, PCI Admission Status: Inpatient Order (span 2 midnights) Reason for Inpatient Admission: Inferior STEMI Plan Inferior STEMI, delay in calling the catheter lab due to no chest pain on admission. Admission complain of syncope with altered mental status. CT scan done to rule out intracranial bleeding. Also the patient has profusely bleeding left foot post surgery. Left foot post surgery done 2 weeks ago. Antiplatelet therapy was held. Patient developed chest pain later in the ER admission. EKG showed inferior ST elevation. Cardiology was urgently consulted. Urgent coronary angiography recommended. Altered mental status, initial CT scan of the head was negative for a bleed. I have requested consultation from Dr. Ha. Profusely bleeding left foot, podiatry consultation. History of CAD, PCI, will need to restart antiplatelet therapy. Echocardiogram Chris BRENNAN MD Sep 10, 2020 06:57
--- NOTE | 2020-09-10 06:58 | Cardiac Procedure Note-CS/ASA ---
Pre-Procedure Note Pre-Op Procedure Note H&P Reviewed The H&P was reviewed, patient examined and no changes noted. Date H&P Reviewed: Sep 10, 2020 Time H&P Reviewed: 06:00 Conscious Sedation Pre-Proced Time 06:00 ASA Score 3 For ASA 3 and 4: Consider anesthesia and medical clearance. Also, for patients with a history of failed moderate sedation consider anesthesia. Airway Lungs Heart ASA score ASA 1: a normal healthy patient ASA 2: a patient with a mild systemic disease (mid diabetes, controlled hypertension, obesity ASA 3: a patient with a severe systemic disease that limits activity (angina, COPD, prior Myocardial infarction) ASA 4: a patient with an incapacitating disease that is a constant threat to life (CHF, renal failure) ASA 5: a moribund patient not expected to survive 24 hrs. (ruptured aneurysm) ASA 6: a declared brain- patient whose organs are being harvested. For emergent operations, add the letter E after the classification Mallampati Classification Grade 1 Sedation Plan Analgesia, Amnesia, Plan communicated to team members, Discussed options with patient/fam, Discussed risks with patient/fam The patient is an appropriate candidate to undergo the planned procedure, sedation, and anesthesia. The patient immediately re-assessed prior to indication. Chris RANKIN MD Sep 10, 2020 06:58
[2020-09-10] MEDS ORDERED: PATIENT MAY USE OWN MEDS, ALL PO SCH (07:00)
--- NOTE | 2020-09-10 07:45 | Diagnostic Imaging Report ---
Clinical indications: Patient with syncopal episode in restroom. Patient status post fall from seated position. Patient has bruising and laceration to right eye. Exam: Axial Head CT without IV contrast. Axial Maxillofacial CT scan without IV contrast with sagittal and coronal reformations. Axial CT scan of the cervical spine with sagittal and coronal reformations. Auto Exposure Controls were utilized during the CT exam to meet ALARA standards for radiation dose reduction. Comparison: CT scan of the head without contrast dated 08/29/2019. Findings: Head CT and maxillofacial CT scan: There is no evidence of acute cerebral infarct, intracranial hemorrhage, or gross mass effect. The brain parenchymal volume appears appropriate for patient's age. There is normal jarrett-white matter distinction. There is no significant midline shift or herniation. There is no evidence of hydrocephalus. The basal cisterns are unremarkable. There is questionable minimal extracranial soft tissue swelling in the right frontal forehead/right periorbital region region. Orbits are intact There is no skull or maxillofacial fracture. Otherwise, the skull, extracranial soft tissue, and orbits are unremarkable. There is mild mucosal thickening involving the frontal sinus, ethmoid sinus, and both maxillary sinuses. There is small amount of consolidation and sclerosis involving the left mastoid process region. Cervical spine: There is no acute cervical spine fracture or dislocation. There are hypertrophic spurs involving the mid and lower cervical spine. Visualized lung ramsay are clear. Neck soft tissue structures show no significant abnormality. Impression: 1: There is no evidence of acute intracranial process. There is no skull fracture. 2: There is no acute cervical spine fracture or dislocation. I agree with [employer] report. Dictated by: Dictated on workstation # [id number]
[2020-09-10] MEDS: NS IV 1000 ML 1,000 ML IV SCH ×2 (08:12→18:21)
--- NOTE | 2020-09-10 08:56 | Pulmonary Consultation ---
History of Present Illness History of Present Illness Date Seen by Provider: Sep 10, 2020 Time Seen by Provider: 08:35 Date of Admission History of Present Illness Jarett Bennett is a 60 y/o male with hx of CVA, bilateral complete toe amputations and 2 weeks s/p L foot revision who presented to the [facility] ER after syncopal episode occurring approximately 0400 this morning. Patient states he woke up to go to the bathroom and was sitting on the toilette when he noticed that his L foot was bleeding. Patient got a towel to clean the blood up and shortly after said he lost consciousness. Patient woke up on the floor and noticed a piece of drywall near him, alerting him that he had hit the drywall on the way down (dried blood visible over R jain). Upon arrival, patient had Hgb 11, Troponin .18 and BNP of 135.1, with EKG showing some ST elevation in 1-2 boxes in the inferior leads. Patient later developed new onset chest pain with radiation to L arm (denied CP on admission). Patient's BP was taken in the 80s after dose of NTG after which he was given 1L fluid bolus and put in trendelenburg which brought it up to 119/79. Cardiology was consulted and patient was taken to medical lab technician, results forthcoming. Patient was given Heparin bolus 5000 units IV and Billinta 180 mg per cardiology. Chest x-ray, CT head/c-spine/facial bones were all normal. Patient was seen here at [facility] for bleeding from the R foot yesterday though he states it had begun to resolve before he arrived so he was discharged after rewrap. Currently patient expresses pain over abdomen and chest which is exacerbated greatly on palpation, refusing any additional pain meds because he "wants to track his symptoms". Currently very weak, minimal movement of extremities and is displaying speech aphasia/hesitancy which Dr. Ha (PCP) notes is far removed from his baseline of speaking very quickly. Currently expressing frustration with weakness and aphasia saying his "lips and body aren't doing what I tell them". Allergies and Home Medications Allergies Coded Allergies: linezolid (Verified Allergy, Unknown, 06/17/19) Home Medications Acetaminophen 500 Mg Tablet, 1,000 MG PO HS, (Reported) TAKES 2 (500MG) TABLETS Aspirin 81 Mg Tab.chew, 81 MG PO DAILY, (Reported) Atorvastatin Calcium 80 Mg Tablet, 80 MG PO DAILY, (Reported) Cephalexin 500 Mg Capsule, 500 MG PO TID Prescribed by: JAJA AVITIA on 09/09/20 1158 Clonazepam 1 Mg Tablet, 2 MG PO HS, (Reported) TAKES 2 (1 MG) TABLETS Clopidogrel Bisulfate 75 Mg Tablet, 75 MG PO DAILY, (Reported) Enalapril Maleate 5 Mg Tablet, 2.5 MG PO BID, (Reported) TAKES 1/2 (5MG) TABLET Insulin Aspart 300 Units/3 Ml Solution, 10 UNITS SC TIDAC, (Reported) Insulin Degludec 200 Unit/1 Ml Insuln.pen, 50 UNITS SC DAILY, (Reported) Multivitamin 1 Each Tablet, 1 TAB PO DAILY, (Reported) Nitroglycerin 0.4 Mg Tab.subl, 0.4 MG SL UD PRN for CHEST PAIN, (Reported) Pregabalin 50 Mg Capsule, 50 MG PO HS, (Reported) Ranolazine 500 Mg Tab.er.12h, 500 MG PO BID, (Reported) Past Lugdlfu-Xkhcwj-Kghfrn Hx Patient Social History Alcohol Use: Denies Use Recreational Drug Use: No Smoking Status: Never a Smoker 2nd Hand Smoke Exposure: No Recent Foreign Travel: No Contact w/Someone Who Travel: No Recent Infectious Disease Expo: No Recent Hopitalizations: Yes (Aug FOOT PARTIAL LEFT FOOT AMPUTATION) Physical Abuse: No Sexual Abuse: No Mistreated: No Fear: No Immunizations Up To Date Tetanus Booster (TDap): Unknown PED Vaccines UTD: No Date of Pneumonia Vaccine: Jan 02, 2011 Date of Influenza Vaccine: Aug 07, 2019 Seasonal Allergies Seasonal Allergies: No Past Medical History Surgeries: Yes (ACL REPAIR;WRIST SURGERY;CARDIAC CATH--STENTS;ALL TOES AMPUTATED; ) Abdominal, Amputation, Appendectomy, Cardiac, Coronary Stent, Gallbladder, Orthopedic, Tonsillectomy Respiratory: No Currently Using CPAP: No Currently Using BIPAP: No Cardiac: Yes (CARDIAC CATHS--STENTS X 3-OM2, LAC, RCA) Cardiomyopathy, Coronary Artery Disease, Heart Attack, High Cholesterol, Hypertension Neurological: Yes Neuropathy, Stroke Reproductive Disorders: No Sexually Transmitted Disease: No HIV/AIDS: No Genitourinary: Yes Kidney Stones Gastrointestinal: Yes Abdominal Hernia Musculoskeletal: Yes (OSTEOMYELITIS WITH ALL TOES AMPUTATED; BACK FUSION X 3) Degenerate Disk Disease, Arthritis, Chronic Back Pain Endocrine: Yes Diabetes, Insulin dep HEENT: Yes (R EYE BLOOD CLOT/PARTIAL BLINDNESS) Loss of Vision: Denies Hearing Impairment: Denies Cancer: No Psychosocial: Yes Anxiety, Depression Integumentary: Yes (FOOT ULCERS/OSTEOMYELITIS; MULTIPLE SURGICAL WOUND INFECTIONS) Blood Disorders: No Adverse Reaction/Blood Tranf: No Family Medical History Family history: Cardiovascular disease 19 FATHER Family history: Diabetes mellitus 19 MOTHER Heart Disease, COPD, Diabetes, Hypertension, Psychiatric Problems, Renal Disease, Vascular Disease PSH: -BILATERAL KNEE SCOPES, WITH OPEN LEFT ACL REPAIR -ALL TOES AMPUTATED BILATERAL FEET -MULTIPLE DEBRIDEMENTS OF FOOT ULCERS -MULTIPLE CARDIAC CATHS-- ANGIOPLASTIES AND STENTS X 3--STENT TO [facility] HERE 05/2018, THEN [facility] AND HAD STENT TO LAD ( COMPLICATED BY SEPSIS DUE TO LEFT FOOT ULCER AND WAS INTUBATED AND HAD PROLONGED HOSPITALIZATIONS/REHAB, AND HAD TOE AMPUTATION) ; HAD STENT TO RCA 01/02/19 -BACK SURGERY/FUSION X 3 -TONSILLECTOMY -APPENDECTOMY -CHOLECYSTECTOMY -HERNIA REPAIR WITH INFECTION/COMPLICATIONS -PORT RIGHT CHEST PLACED/REMOVED DUE TO INFECTION -MANY TEETH REMOVED Review of Systems Constitutional: Weakness; No: Fever Eyes: No: Pain, Redness ENT: No: Mouth swelling, Throat swelling Respiratory: Other (dyspnic secondary to pain); No: Wheezing Cardiovascular: Chest Pain; No: Edema Gastrointestinal: Abdominal Pain Genitourinary: No Incontinence Musculoskeletal: shoulder pain, arm pain Skin: No: Rash, Jaundice Neurological: Weakness, Change in speech Other limited secondary to acute onset aphasia Sepsis Event Evaluation Height, Weight, BMI Height: 6'4.00" Weight: 240lbs. 3.0oz. 108.277667lz; 30.33 BMI Method:Stated Exam Exam Vital Signs Date Time Temp Pulse Resp B/P (MAP) Pulse Ox O2 Delivery O2 Flow Rate FiO2 09/10/20 07:45 94 13 139/88 100 09/10/20 07:30 95 16 144/89 100 09/10/20 07:15 36.0 93 14 140/92 96 09/10/20 07:00 96 09/10/20 05:40 36.3 90 12 115/75 100 Room Air 09/10/20 04:05 35.4 89 18 114/89 (97) 100 Room Air I & O 09/10/20 07:00 Intake Total 1200 ml Balance 1200 ml Height & Weight Height: 6'4.00" Weight: 240lbs. 3.0oz. 108.781083pg; 30.33 BMI Method:Stated General Appearance: WD/WN, Moderate Distress, Obese HEENT: PERRL/EOMI, Moist Mucous Membranes; No Scleral Icterus (L), No Scleral Icterus (R) Neck: Normal Inspection; No Carotid Bruit Respiratory: Lungs Clear, Normal Breath Sounds, Respiratory Distress (mild, secondary to pain) Cardiovascular: No Murmur, Normal Peripheral Pulses, Tachycardia Capillary Refill: NONE Gastrointestinal: tenderness; No hernia, No mass Extremity: Normal Inspection; No Swelling; Other (bilateral total toe amputation, 2/5 strength in all extremities) Neurologic/Psychiatric: Alert, Oriented x3, Aphasia, Depressed Affect, Motor Weakness Skin: Warm/Dry, Other (dried blood over R jain) Results Lab Laboratory Tests 09/10/20 04:28 Assessment/Plan Assessment/Plan STEMI -consulted cardiology (Dr. Patel) -Taken for cardiac catheterization will review report -echocardiogram ordered -patient given heparin bolus 5000 units -maintain Brillinta and Aspirin -repeat EKG Syncope -CT head, CT neck, cxr reviewed as negative -MRI ordered -appreciate cardiology Weakness -consult PT aphasia -consult ST Ecchymosis of R eye VASU C[employer] MED STUDENT Sep 10, 2020 08:56
[2020-09-10] MEDS ORDERED: TICAGRELOR 90 MG TABLET (BRILINTA) PO SCH (09:00)
[2020-09-10] MEDS ORDERED: ASPIRIN E.C. 81 MG (ECOTRIN) TAB PO SCH (09:00)
[2020-09-10] MEDS ORDERED: GADOBUTROL 15 MMOL/15 ML (GADAVIST) VIAL IV ONE (12:15)
--- NOTE | 2020-09-10 12:54 | Diagnostic Imaging Report ---
PROCEDURE: MR imaging of the brain with and without contrast. TECHNIQUE: Multiplanar, multisequence MR imaging of the brain was performed with and without contrast. INDICATION: Confusion and fall. COMPARISON: Correlation is made with prior MRI of the brain from 01/29/2017. FINDINGS: Ventricles and sulci are within normal limits. No sulcal effacement or midline shift is identified. No acute intra-axial or extra-axial hemorrhage is detected. Diffusion-weighted images are unremarkable. No diffusion restriction is seen. The corpus callosum is unremarkable. The sella and parasellar structures are unremarkable. No abnormal enhancement is identified following contrast administration. The normal expected flow-voids within the carotid siphons are seen. IMPRESSION: Unremarkable pre and post contrast MRI of the brain. Dictated by: Dictated on workstation # [id number]
--- NOTE | 2020-09-10 15:04 | NUR ---
RD ASSESSMENT PMHx: HTN; hypercholesterolemia; CAD; DM; stroke; amputation (bilateral toes; recent partial L foot) PT INTERACTION: Pt was awake and pleasant during nutrition assessment. Note pt has AMS, per chart review. Pt states current appetite is not good. Note avg PO intake of 0% x2meal, per chart review. Pt states following a diabetic diet at home, and has no issues with chewing/swallowing food. Pt states recent issues with nausea, and vomiting, but not constipation or diarrhea, and that his last BM was 09/09. Note pt not currently on bowel regimen per chart review. Pt states no recent wt changes. Note recent 17# wt loss x9mon, per chart review. Pt states current DM management "seems to be doing good." Note unable to determine recent HbA1c, per chart review. Note presence of wound (L foot from recent partial amputation), per chart review. ABNORMAL NUTRITION-RELATED LAB VALUES LOW: K 3.5; Ca 8.2; Pro 6.3; alb 3.0 HIGH: glu 211 Est. kcal needs: 5428-1535 kcal | 15-20 kcal/kg Est. Pro needs: 113-136 g Pro | 1.0-1.2 g Pro/kg PES STATEMENT: Inadequate oral intake (NI-2.1) related to loss of appetite, nausea, and vomiting, as evidenced by pt interview, and avg PO intake 0% x2meal. Inadequate protein intake (NI-5.6.1) related to increased protein needs as evidenced by presence of wound (L foot from recent partial amputation). INTERVENTION: Continue with current diet order of CHO 60g/m 1snack diet, with modifier of 2000mg Na restriction. Add Glucerna (vary) with meals TID, for increase kcal and protein intake. Provides 220 kcal and 10 g Pro per serving. Did not offer diet education at this time, due to pt's AMS. May attempt to offer prior to discharge. Will continue to follow and reassess as pt needs, intake, and status change. Nam Pena, MS RD LD
--- NOTE | 2020-09-10 15:18 | Consultation ---
History of Present Illness History of Present Illness Patient Consulted On(dm/time) 09/10/20 15:12 Date Seen by Provider: Sep 10, 2020 Time Seen by Provider: 08:20 Reason for Visit: CHEST PAIN, SYNCOPE History of Present Illness PT IS A 60 Y/O MALE WHO IS WELL KNOWN TO ME FROM CLINIC. HE APPARENTLY GOT UP TO USE THE RESTROOM AND NOTED THAT HE HAD EXTREME BLEEDING FROM HIS LEFT FOOT, FILLED HIS SURGICAL SHOE AND THE HE HAD A SYNCOPAL EPISODE HITTING HIS HEAD ON THE BATHROOM WALL. HE APPARENTLY HAD CHEST PAIN ABOUT 40 MINUTES AFTER HE GOT INTO THE EMERGENCY DEPARTMENT, HE WAS FOUND TO HAVE EKG CHANGES AND TAKEN FOR HEART CATH DR. RANKIN. Allergies and Home Medications Allergies Coded Allergies: linezolid (Verified Allergy, Unknown, 06/17/19) Home Medications Acetaminophen 500 Mg Tablet, 1,000 MG PO HS, (Reported) TAKES 2 (500MG) TABLETS Aspirin 81 Mg Tab.chew, 81 MG PO DAILY, (Reported) Atorvastatin Calcium 80 Mg Tablet, 80 MG PO DAILY, (Reported) Cephalexin 500 Mg Capsule, 500 MG PO TID Prescribed by: JAJA AVITIA on 09/09/20 1158 Clonazepam 1 Mg Tablet, 2 MG PO HS, (Reported) TAKES 2 (1 MG) TABLETS Clopidogrel Bisulfate 75 Mg Tablet, 75 MG PO DAILY, (Reported) Enalapril Maleate 5 Mg Tablet, 2.5 MG PO BID, (Reported) TAKES 1/2 (5MG) TABLET Insulin Aspart 300 Units/3 Ml Solution, 10 UNITS SC TIDAC, (Reported) Insulin Degludec 200 Unit/1 Ml Insuln.pen, 50 UNITS SC DAILY, (Reported) Multivitamin 1 Each Tablet, 1 TAB PO DAILY, (Reported) Nitroglycerin 0.4 Mg Tab.subl, 0.4 MG SL UD PRN for CHEST PAIN, (Reported) Pregabalin 50 Mg Capsule, 50 MG PO HS, (Reported) Ranolazine 500 Mg Tab.er.12h, 500 MG PO BID, (Reported) Patient Home Medication List Home Medication List Reviewed: Yes Past Ypxfchp-Lhfddj-Hnszcz Hx Past Med/Social Hx: Reviewed Nursing Past Med/Soc Hx, Reviewed and Corrections made Patient Social History Alcohol Use: Denies Use Recreational Drug Use: No Smoking Status: Never a Smoker 2nd Hand Smoke Exposure: No Recent Foreign Travel: No Contact w/Someone Who Travel: No Recent Infectious Disease Expo: No Recent Hopitalizations: Yes (Aug FOOT PARTIAL LEFT FOOT AMPUTATION) Physical Abuse: No Sexual Abuse: No Mistreated: No Fear: No Immunizations Up To Date Tetanus Booster (TDap): Unknown PED Vaccines UTD: No Date of Pneumonia Vaccine: Jan 02, 2011 Date of Influenza Vaccine: Aug 07, 2019 Seasonal Allergies Seasonal Allergies: No Past Medical History Surgeries: Yes (ACL REPAIR;WRIST SURGERY;CARDIAC CATH--STENTS;ALL TOES AMPUTATED; ) Abdominal, Amputation, Appendectomy, Cardiac, Coronary Stent, Gallbladder, Orthopedic, Tonsillectomy Respiratory: No Currently Using CPAP: No Currently Using BIPAP: No Cardiac: Yes (CARDIAC CATHS--STENTS X 3-OM2, LAC, RCA) Cardiomyopathy, Coronary Artery Disease, Heart Attack, High Cholesterol, Hypertension Neurological: Yes Neuropathy, Stroke Reproductive Disorders: No Sexually Transmitted Disease: No HIV/AIDS: No Genitourinary: Yes Kidney Stones Gastrointestinal: Yes Abdominal Hernia Musculoskeletal: Yes (OSTEOMYELITIS WITH ALL TOES AMPUTATED; BACK FUSION X 3) Degenerate Disk Disease, Arthritis, Chronic Back Pain Endocrine: Yes Diabetes, Insulin dep HEENT: Yes (R EYE BLOOD CLOT/PARTIAL BLINDNESS) Loss of Vision: Denies Hearing Impairment: Denies Cancer: No Psychosocial: Yes Anxiety, Depression Integumentary: Yes (FOOT ULCERS/OSTEOMYELITIS; MULTIPLE SURGICAL WOUND INFECTIONS) Blood Disorders: No Adverse Reaction/Blood Tranf: No Family Medical History Reviewed and Corrections made Family history: Cardiovascular disease 19 FATHER Family history: Diabetes mellitus 19 MOTHER Heart Disease, COPD, Diabetes, Hypertension, Psychiatric Problems, Renal Disease, Vascular Disease PSH: -BILATERAL KNEE SCOPES, WITH OPEN LEFT ACL REPAIR -ALL TOES AMPUTATED BILATERAL FEET -MULTIPLE DEBRIDEMENTS OF FOOT ULCERS -MULTIPLE CARDIAC CATHS-- ANGIOPLASTIES AND STENTS X 3--STENT TO [facility] HERE 05/2018, [facility] AND HAD STENT TO LAD ( COMPLICATED BY SEPSIS DUE TO LEFT FOOT ULCER AND WAS INTUBATED AND HAD PROLONGED HOSPITALIZATIONS/REHAB, AND HAD TOE AMPUTATION) ; HAD STENT TO RCA 01/02/19 -BACK SURGERY/FUSION X 3 -TONSILLECTOMY -APPENDECTOMY -CHOLECYSTECTOMY -HERNIA REPAIR WITH INFECTION/COMPLICATIONS -PORT RIGHT CHEST PLACED/REMOVED DUE TO INFECTION -MANY TEETH REMOVED Review of Systems Review of Systems General: No Chills; Fatigue, Malaise HEENT: No Head Aches, No Visual Changes Pulmonary: No Dyspnea, No Cough Cardiovascular: Chest Pain; No: Edema Gastrointestinal: No: Abdominal Pain Genitourinary: No Incontinence Musculoskeletal: shoulder pain, foot pain; No: arm pain, back pain Neurological: Weakness, Change in speech All Other Systems Reviewed All Other Systems Reviewed: Yes Physical Exam Vital Signs Vital Signs - First Documented 09/10/20 04:05 Temp 35.4 Pulse 89 Resp 18 B/P (MAP) 114/89 (97) Pulse Ox 100 O2 Delivery Room Air Capillary Refill : NONE Height, Weight, BMI Height: 6'4.00" Weight: 240lbs. 3.0oz. 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 PT IS TO CONTINUE WITH SLIDING SCALE INSULIN. HYPERTENSION - DEFER TO CARDIOLOGY CORONARY ARTERY DISEASE - DEFER TO DR. RANKIN - RIGHT CIRCUMFLEX ARTERY STATUS POST STENT DEPLOYMENT TODAY. - CONTINUE WITH PLAVIX. PERIPHERAL VASCULAR DISEASE - WITH RECENT LEFT FOOT SURGERY - DISCUSSED WITH PT - DR. RANKIN IS PLANNING ON CONSULTING PODIATRY. HYPERLIPIDEMIA - CONTINUE WITH STATIN THERAPY PERIPHERAL NEUROPATHY - RESTART LYRICA CONFUSION WITH SYMPTOMS OF CONCUSSION - FINDINGS: Ventricles and sulci are within normal limits. No sulcal effacement or midline shift is identified. No acute intra-axial or extra-axial hemorrhage is detected. Diffusion-weighted images are unremarkable. No diffusion restriction is seen. The corpus callosum is unremarkable. The sella and parasellar structures are unremarkable. No abnormal enhancement is identified following contrast administration. The normal expected flow-voids within the carotid siphons are seen. IMPRESSION: Unremarkable pre and post contrast MRI of the brain. - PT WILL NEED TO AVOID TV, LOUD NOISES, ETC WHEN HE IS DISCHARGED FROM THE HOSPITAL Assessment and Plan DIABETES MELLITUS HYPERTENSION CORONARY ARTERY DISEASE PERIPHERAL VASCULAR DISEASE HYPERLIPIDEMIA PERIPHERAL NEUROPATHY CONFUSION Clinical Quality Measures DVT/VTE Risk/Contraindication: Risk Factor Score Per Nursin RFS Level Per Nursing on Admit: 4+=Very High ROSA MARIA PRADO MD Sep 10, 2020 15:18
[2020-09-10] MEDS: inSUlin ASPART (NovoLOG) 1 UNIT/0.01 ML (CHARGE PER UNIT) SC SCH ×2 (16:36→21:00)
[2020-09-10] MEDS: TICAGRELOR 90 MG TABLET (BRILINTA) PO SCH (22:10)
[2020-09-11] MEDS ORDERED: ONDANSETRON 4 MG/2 ML (SDV) Z0FRAN ONE (01:23)
--- NOTE | 2020-09-11 01:39 | NUR ---
THIS RN NOTIFIED DR. RANKIN THAT PATIENT IS C/O CHEST PAIN 05/14, ALSO NAUSEOUS AND STATING "SOMETHING ISN'T RIGHT. MY HEART IS RACING. SOMETHING IS DIFFERENT". STAT EKG OBTAINED BY THIS RN AND RESULTS SENT TO DR. RANKIN AT THIS TIME. VITAL SIGNS STABLE: HR 84, BP 137/75, RR 18, AND SP02 100% ON RA. NEW ORDER RECEIVED FOR CHEST PAIN PROTOCOL.
[2020-09-11] MEDS ORDERED: ONDANSETRON 4 MG/2 ML (SDV) Z0FRAN IVP ONE (01:45)
[2020-09-11] MEDS ORDERED: NITROGLYCERIN 0.4 MG SL TABS BTL 25'S SL PRN (02:15)
[2020-09-11] MEDS ORDERED: ONDANSETRON 4 MG/2 ML (SDV) Z0FRAN IVP PRN (02:15)
[2020-09-11] MEDS: morphine INJ 4 MG/ML 1 ML (VIAL/SYRINGE) IV PRN ×2 (02:45→18:22)
[2020-09-11 03:06] LABS: BASOPHILS % (AUTO) 0 % (0-10); EOSINOPHILS % (AUTO) 0 % (0-10); HEMATOCRIT 29 % (40-54); HEMOGLOBIN 9.7 g/dL (13.3-17.7); LYMPHOCYTES # (AUTO) 2.4 10^3/uL (1.0-4.0); LYMPHOCYTES % (AUTO) 26 % (12-44); MEAN CORPUSCULAR HEMOGLOBIN 31 pg (25-34); MEAN CORPUSCULAR HGB CONC 34 g/dL (32-36); MEAN CORPUSCULAR VOLUME 90 fL (80-99); MEAN PLATELET VOLUME 9.8 fL (9.0-12.2); MONOCYTES # (AUTO) 0.7 10^3/uL (0.0-1.0); MONOCYTES % (AUTO) 8 % (0-12); NEUTROPHILS # (AUTO) 6.2 10^3/uL (1.8-7.8); NEUTROPHILS % (AUTO) 66 % (42-75); PLATELET COUNT 180 10^3/uL (130-400); WHITE BLOOD COUNT 9.3 10^3/uL (4.3-11.0)
[2020-09-11 03:17] LABS: CHLORIDE 105 MMOL/L (98-107); POTASSIUM 3.2 MMOL/L (3.6-5.0); SODIUM 139 MMOL/L (135-145)
[2020-09-11 03:19] LABS: CALCIUM 7.9 MG/DL (8.5-10.1); GLUCOSE 210 MG/DL (70-105)
[2020-09-11 03:21] LABS: CARBON DIOXIDE 21 MMOL/L (21-32)
[2020-09-11 03:23] LABS: CREATININE SERUM 1.09 MG/DL (0.60-1.30); GFR ESTIMATED > 60; PHOSPHORUS 1.1 MG/DL (2.3-4.7)
[2020-09-11 03:24] LABS: BUN/CREATININE RATIO 18
[2020-09-11 03:25] LABS: MAGNESIUM 1.6 MG/DL (1.6-2.4)
--- NOTE | 2020-09-11 04:39 | Pulmonary Progress Note ---
Subjective Time Seen by a Provider: 04:36 Subjective/Events-last exam S/p Cath. Pt has complained of CP through the night and cardiology is aware. Sepsis Event Evaluation Height, Weight, BMI Height: 6'4.00" Weight: 240lbs. 3.0oz. 108.480066cv; 30.33 BMI Method:Stated Exam Exam Vital Signs Date Time Temp Pulse Resp B/P (MAP) Pulse Ox O2 Delivery O2 Flow Rate FiO2 09/11/20 02:00 103 19 132/80 99 Room Air 09/11/20 01:00 104 09/11/20 01:00 105 17 137/75 100 Room Air 09/11/20 00:00 96 Room Air 09/11/20 00:00 36.8 09/11/20 00:00 90 25 111/99 100 Room Air 09/10/20 23:00 93 28 130/73 90 Room Air 09/10/20 22:00 98 16 112/82 97 Room Air 09/10/20 21:00 92 20 99 Room Air 09/10/20 20:00 37.1 09/10/20 20:00 96 Room Air 09/10/20 20:00 95 16 120/74 99 Room Air 09/10/20 19:00 91 09/10/20 19:00 93 12 99 Room Air 09/10/20 18:00 113 13 110/92 99 09/10/20 17:00 96 11 108/90 100 09/10/20 16:00 96 11 119/85 99 09/10/20 16:00 99 Room Air 09/10/20 16:00 37.3 09/10/20 15:00 94 14 140/89 100 09/10/20 14:00 93 11 126/82 98 09/10/20 13:00 97 09/10/20 13:00 93 9 95 09/10/20 12:00 93 Room Air 09/10/20 12:00 97 10 93 09/10/20 11:00 98 18 120/82 99 09/10/20 10:00 101 21 132/82 100 09/10/20 09:00 Room Air 09/10/20 09:00 97 11 138/88 100 09/10/20 08:00 100 22 130/87 100 09/10/20 07:45 94 13 139/88 100 09/10/20 07:30 95 16 144/89 100 09/10/20 07:15 36.0 93 14 140/92 96 09/10/20 07:00 96 09/10/20 05:40 36.3 90 12 115/75 100 Room Air I & O 09/11/20 07:00 Intake Total 450 ml Output Total 1150 ml Balance -700 ml Height & Weight Height: 6'4.00" Weight: 240lbs. 3.0oz. 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
[2020-09-11] MEDS: NS IV 1000 ML 1,000 ML IV SCH ×3 (05:02→21:51)
[2020-09-11] MEDS: MAGNESIUM 1 GM/100 ML IVPB 100 ML IV SCH ×2 (05:02→06:38)
[2020-09-11] MEDS: POTASSIUM CL 10MEQ/50ML IVPB 50 ML IV SCH ×4 (05:03→08:53)
[2020-09-11] MEDS: inSUlin ASPART (NovoLOG) 1 UNIT/0.01 ML (CHARGE PER UNIT) SC SCH ×4 (05:25→20:39)
[2020-09-11] MEDS ORDERED: KCL 20 MEQ TAB (K-DUR) PO SCH ×2 (06:00)
[2020-09-11] MEDS ORDERED: MAGNESIUM 1 GM/100 ML IVPB 100 ML IV SCH ×2 (06:00)
[2020-09-11] MEDS ORDERED: POTASSIUM CL 10MEQ/50ML IVPB 50 ML IV SCH ×2 (06:00)
[2020-09-11] MEDS: ASPIRIN E.C. 81 MG (ECOTRIN) TAB PO SCH (08:53)
[2020-09-11] MEDS: TICAGRELOR 90 MG TABLET (BRILINTA) PO SCH ×2 (08:53→20:39)
[2020-09-11] MEDS ORDERED: POTASSIUM PHOSPHATE INJ 30 MM in NS (IVPB) 250 ML IV ONE (09:00)
--- NOTE | 2020-09-11 09:52 | Physical Therapy Evaluation ---
PT Evaluation-General Medical Diagnosis Admission Date Sep 10, 2020 at 07:03 Medical Diagnosis: weakness Onset Date: Sep 09, 2020 Therapy Diagnosis Therapy Diagnosis: weakness Height/Weight Height (Feet): 6 Height (Inches): 4.00 Weight (Pounds): 240 Weight (Ounces): 3.0 Precautions Precautions/Isolations: Fall Prevention, Standard Precautions Weight Bear Status Full Weight Bearing Non Weight Bearing Referral Physician: [place] Reason for Referral: Evaluation/Treatment Medical History Pertinent Medical History: CAD, DM, HTN, [place] Social History Current Living Status: Spouse Prior Prior Level of Function SCALE: Activities may be completed with or without assistive devices. 6-Litnmrlypn-idchdct completes the activity by him/herself with no assistance from a helper. 5-Set-up or Clean-up Assistance-helper sets up or cleans up; patient completes activity. [place] assists only prior to or following the activity. 4-Supervision or Touching Assistance-helper provides verbal cues and/or touching/steadying and/or contact guard assistance as patient completes activity. Assistance may be provided throughout the activity or intermittently. 3-Partial/Moderate Assistance-helper does LESS THAN HALF the effort. [place] lifts, holds or supports trunk or limbs, but provides less than half the effort. 2-Substantial/Maximal Assistance-helper does MORE THAN HALF the effort. [place] lifts or holds trunk or limbs and provides more than half the effort. 2-Rczauzuqk-mgvtko does ALL the effort. Patient does none of the effort to complete the activity. Or, the assistance of 2 or more helpers is required for the patient to complete the activity. If activity was not attempted, code reason: 7-Patient Refused. 9-Not Applicable-not attempted and the patient did not perform the activity before the current illness, exacerbation or injury. 10-Not Attempted due to Environmental Limitations-(lack of equipment, weather restraints, etc.). 88-Not Attempted due to Medical Conditions or Safety Concerns. Bed Mobility: 6 Transfers (B,C,W/C): 6 Gait: 6 Stairs: 6 Stairs: Independent PT Evaluation-Current Subjective States that he is doing okay. States that he is not sure why he needs therapy. States that he can transfer okay but if he puts any weight through the (L) LE his wound bleeds. Pain Numeric Pain Scale: 0-No Pain ROM/Strength Strength Lower Extremities grossly 4+/5 Integumentary/Posture Integumentary dressing covering wound on (L) foot Transfers Roll Left to Right (QC): 6 Sit to Lying (QC): 6 Lying to Sitting/Side of Bed(Q: 6 Gait Does the Patient Walk?: Yes Comments/Gait Description No transfers performed secondary to patient not wanting to open the wound again. Assessment/Needs 60 y.o. male hospitalized secondary to recent fall and wound opening and resultant cardiac issues. The patient has difficulty with transfers secondary to wound. The patient should do well with therapy. Rehab Potential: Good PT Short Term Goals Short Term Goals Sit to stand: 5 Chair/odz-or-fybju transfer: 5 Toilet transfer: 5 Car transfer: 5 PT Long-Term Goals Vest Finisher Goals Sit to Stand (QC): 6 Chair/Jqu-jr-Esqrd Xfer(QC): 6 Toilet Transfer (QC): 6 Car Transfer (QC): 6 Does the Patient Walk: Yes Walk 10 feet (QC): 5 1 Step (curb) (QC): 5 Picking up an Object (QC): 5 PT Plan Problem List Problem List: Functional Strength, Safety, Balance, Gait, Transfer Treatment/Plan Treatment Plan: Continue Plan of Care Treatment Plan: Functional Activity Amy, Functional Strength, Gait, Safety, Therapeutic Exercise, Transfers Treatment Duration: Sep 25, 2020 Frequency: 6 times per week Estimated Hrs Per Day: .5 hour per day Time/GCodes Time In: 0930 Time Out: 0945 Total Billed Treatment Time: 15 Total Billed Treatment 1MATY low complexity INGRID REDD PT Sep 11, 2020 09:52
--- NOTE | 2020-09-11 10:25 | Progress Note - Hospitalist ---
Subjective HPI/CC On Admission Date Seen by Provider: Sep 11, 2020 Time Seen by Provider: 10:16 Subjective/Events-last exam Pt reports feeling groggy. Had Chest pain overnight and got morphine. Thinks that is making him groggy today and a little out of it. Otherwise not specific complaints. Objective Exam Vital Signs Vital Signs Date Time Temp Pulse Resp B/P (MAP) Pulse Ox O2 Delivery O2 Flow Rate FiO2 09/11/20 09:00 80 12 99 Room Air 09/11/20 08:52 36.4 Capillary Refill : NONE General Appearance: No Apparent Distress, Chronically ill Respiratory: Lungs Clear, No Respiratory Distress Cardiovascular: Regular Rate, Rhythm, No Murmur Neurologic/Psychiatric: Alert, Oriented x3 Results/Procedures Lab Laboratory Tests 09/11/20 02:55 Patient resulted labs reviewed. Assessment/Plan Assessment and Plan Assess & Plan/Chief Complaint STEMI s/p RCA CAD PVD s/p recent surgery management per cardiology Had recurrent chest pain overnight requiring morphine Continue DAPT PT but nonweight bearing on RLE DIABETES MELLITUS SSI BS mildly elevated this AM from goal Awaiting med rec to resume basal insulin PERIPHERAL NEUROPATHY Continue Lyrica when med rec available CONFUSION WITH SYMPTOMS OF CONCUSSION - FINDINGS of MRI: Ventricles and sulci are within normal limits. No sulcal effacement or midline shift is identified. No acute intra-axial or extra-axial hemorrhage is detected. Diffusion-weighted images are unremarkable. No diffusion restriction is seen. The corpus callosum is unremarkable. The sella and parasellar structures are unremarkable. No abnormal enhancement is identified following contrast administration. The normal expected flow-voids within the carotid siphons are seen. IMPRESSION: Unremarkable pre and post contrast MRI of the brain. Confusion likely due to concussion, but exacerbated this AM by morphine Discussed with nurse that if he needs repeat dose to do smaller but left it at current dose in case he has severe pain Diagnosis/Problems Diagnosis/Problems (1) STEMI (ST elevation myocardial infarction) Status: Acute Qualifiers: Involved coronary artery: right coronary artery Qualified Codes: I21.11 - ST elevation (STEMI) myocardial infarction involving right coronary artery (2) Ecchymosis of eye Status: Acute Qualifiers: Encounter type: initial encounter Laterality: right Qualified Codes: S05.11XA - Contusion of eyeball and orbital tissues, right eye, initial encounter (3) Postoperative bleeding from incision Status: Acute (4) CAD (coronary artery disease), [place] coronary artery (5) Anxiety Status: Chronic (6) IDDM (insulin dependent diabetes mellitus) Status: Acute Clinical Quality Measures DVT/VTE Risk/Contraindication: Risk Factor Score Per Nursin RFS Level Per Nursing on Admit: 4+=Very High MARTA ARREDONDO MD Sep 11, 2020 10:24
--- NOTE | 2020-09-11 17:18 | Cardiology Progress Note ---
Cardiology SOAP Progress Note Subjective: No chest pain. Improved mental status. Objective: I&O/Vital Signs Weight (Pounds): 240 Weight (Ounces): 3.0 Weight (Calculated Kilograms): 108.021018 Constitutional: AAO x 3 Respiratory: chest is bilaterally symmetric, lungs clear to auscultation Cardiovascular: regular rate-rhythm, S1 and S2 Gastrointestional: soft, audible bowel sounds Extremities: normal range of motion, non-tender, normal inspection, no lower extremity edema bilateral Neurologic/Psychiatric: no motor/sensory deficits, alert, normal mood/affect, oriented x 3 Skin: normal color Results/Procedures: Labs Microbiology 09/10/20 MRSA Screen - Final, Complete MRSA not isolated A/P: Assessment/Dx: Inferior STEMI, PCI to distal RCA with drug-eluting stent Improving mental status, Left foot, recent surgery, History of CAD/PCI Plan: Urgent PCI to the distal RCA with drug-eluting stent. Excellent results post PCI. Patient will be restarted on dual antiplatelet therapy. Continue high-d ose statin therapy. Beta blockers and AZEB inhibitor. Altered mental status, consultation from Dr. Ha is appreciated. Brain MRI has been recommended. No further bleeding from left foot after pressure bandage. Thank you for your consultation. Please call me if you have any questions. Casper Brennan MD, FACP, FACC, FSCAI, FHRS, CCDS Interventional Cardiology Cardiac Electrophysiology Vascular Medicine and Endovascular Interventions Chris BRENNAN MD Sep 11, 2020 17:18
--- NOTE | 2020-09-11 23:00 | NUR ---
REPORT GIVEN TO GHAZALA OJEDA
[2020-09-12 03:39] LABS: BASOPHILS % (AUTO) 0 % (0-10); EOSINOPHILS # (AUTO) 0.1 10^3/uL (0.0-0.3); EOSINOPHILS % (AUTO) 1 % (0-10); HEMATOCRIT 26 % (40-54); HEMOGLOBIN 8.6 g/dL (13.3-17.7); LYMPHOCYTES # (AUTO) 2.4 10^3/uL (1.0-4.0); LYMPHOCYTES % (AUTO) 28 % (12-44); MEAN CORPUSCULAR HEMOGLOBIN 31 pg (25-34); MEAN CORPUSCULAR HGB CONC 33 g/dL (32-36); MEAN CORPUSCULAR VOLUME 92 fL (80-99); MEAN PLATELET VOLUME 10.5 fL (9.0-12.2); MONOCYTES # (AUTO) 0.8 10^3/uL (0.0-1.0); MONOCYTES % (AUTO) 9 % (0-12); NEUTROPHILS # (AUTO) 5.1 10^3/uL (1.8-7.8); NEUTROPHILS % (AUTO) 60 % (42-75); PLATELET COUNT 158 10^3/uL (130-400); WHITE BLOOD COUNT 8.4 10^3/uL (4.3-11.0)
[2020-09-12 03:54] LABS: PHOSPHORUS 2.7 MG/DL (2.3-4.7)
[2020-09-12 03:56] LABS: MAGNESIUM 1.9 MG/DL (1.6-2.4)
--- NOTE | 2020-09-12 04:07 | Pulmonary Progress Note ---
Subjective Time Seen by a Provider: 04:05 Subjective/Events-last exam Pt is doing better. Sepsis Event Evaluation Height, Weight, BMI Height: 6'4.00" Weight: 240lbs. 3.0oz. 108.344008ah; 30.33 BMI Method:Stated Exam Exam Vital Signs Date Time Temp Pulse Resp B/P (MAP) Pulse Ox O2 Delivery O2 Flow Rate FiO2 09/12/20 03:44 36.4 97 16 118/62 100 Room Air 09/11/20 23:33 36.4 90 19 134/77 93 Room Air 09/11/20 20:20 Room Air 09/11/20 20:20 37.0 87 18 144/83 99 09/11/20 18:41 83 22 142/70 99 99.00 09/11/20 17:00 83 22 122/75 99 99.00 09/11/20 16:00 100 Room Air 09/11/20 16:00 77 20 Room Air 09/11/20 15:54 36.6 09/11/20 14:00 81 20 Room Air 09/11/20 13:00 86 14 100 Room Air 09/11/20 12:39 81 09/11/20 12:00 89 25 141/106 98 Room Air 09/11/20 12:00 100 Room Air 09/11/20 11:23 36.8 09/11/20 11:00 78 11 126/79 95 Room Air 09/11/20 10:00 80 13 117/86 100 Room Air 09/11/20 09:00 80 12 99 Room Air 09/11/20 08:52 36.4 09/11/20 08:00 100 Room Air 09/11/20 08:00 81 15 128/75 96 Room Air 09/11/20 07:00 94 8 136/71 99 Room Air 09/11/20 07:00 87 09/11/20 06:00 87 13 129/79 91 Room Air 09/11/20 05:00 89 14 132/78 100 Room Air I & O 09/12/20 07:00 Intake Total 1230 ml Output Total 750 ml Balance 480 ml Height & Weight Height: 6'4.00" Weight: 240lbs. 3.0oz. 108.273277tp; 30.33 BMI Method:Stated General Appearance: No Apparent Distress, Chronically ill HEENT: PERRL/EOMI, TMs Normal, Normal ENT Inspection, Pharynx Normal Neck: Full Range of Motion, Supple Respiratory: Lungs Clear, No Respiratory Distress Cardiovascular: Regular Rate, Rhythm, No Murmur Capillary Refill: NONE Gastrointestinal: tenderness; No hernia, No mass Extremity: Non Tender, No Calf Tenderness Neurologic/Psychiatric: Alert, Oriented x3 Skin: Normal Color, Other (RIGHT FOREFOOT AMPUTATION, LEFT FOOT WRAPPED IN PRESSURE DRESSING) Lymphatic: No Adenopathy Results Lab Laboratory Tests 09/10/20 04:28 09/11/20 02:55 09/12/20 03:05 Assessment/Plan Assessment/Plan STEMI s/p cath with stent - cardiology following -Brillinta and Aspirin -repeat EKG -No recurrent CP over night -No oxygen currently s/p Syncope -CT head, CT neck, cxr reviewed as negative -MRI -- Negative Weakness -PT/OT aphasia -ST Ecchymosis of R eye I am going to sign off please call with any questions. ELÍAS GOMEZ DO Sep 12, 2020 04:07
[2020-09-12 04:23] LABS: CHLORIDE 107 MMOL/L (98-107); POTASSIUM 3.6 MMOL/L (3.6-5.0); SODIUM 140 MMOL/L (135-145)
[2020-09-12 04:24] LABS: CALCIUM 7.4 MG/DL (8.5-10.1); GLUCOSE 143 MG/DL (70-105)
[2020-09-12 04:26] LABS: CARBON DIOXIDE 24 MMOL/L (21-32)
[2020-09-12 04:28] LABS: CREATININE SERUM 0.94 MG/DL (0.60-1.30); GFR ESTIMATED > 60
[2020-09-12 04:29] LABS: BUN/CREATININE RATIO 16
[2020-09-12] MEDS: inSUlin ASPART (NovoLOG) 1 UNIT/0.01 ML (CHARGE PER UNIT) SC SCH ×2 (05:13→11:25)
[2020-09-12] MEDS: ASPIRIN E.C. 81 MG (ECOTRIN) TAB PO SCH (08:06)
[2020-09-12] MEDS: TICAGRELOR 90 MG TABLET (BRILINTA) PO SCH (08:07)
[2020-09-12] MEDS ORDERED: KCL 20 MEQ TAB (K-DUR) PO ONE (09:00)
[2020-09-12] MEDS: NS IV 1000 ML 1,000 ML IV SCH (09:01)
--- NOTE | 2020-09-12 09:07 | NUR ---
DR ARREDONDO NOTIFIED OF NS ORDER THAT WAS DUE THIS AM BUT WAS NOT HUNG, SHE SAID IT WAS OK NOT HANG BAG. PT IS VOIDING 'OK' PER HIS COMMENTS.
--- NOTE | 2020-09-12 11:08 | Progress Note - Hospitalist ---
Subjective HPI/CC On Admission Date Seen by Provider: Sep 12, 2020 Time Seen by Provider: 11:07 Subjective/Events-last exam Pt reports feeling well. No complaints. Hoping to go home today. Objective Exam Vital Signs Vital Signs Date Time Temp Pulse Resp B/P (MAP) Pulse Ox O2 Delivery O2 Flow Rate FiO2 09/12/20 08:33 Room Air 09/12/20 03:44 36.4 97 16 118/62 100 09/11/20 18:41 99.00 Capillary Refill : NONE General Appearance: No Apparent Distress, Chronically ill Respiratory: Lungs Clear, No Respiratory Distress Cardiovascular: Regular Rate, Rhythm, No Murmur Neurologic/Psychiatric: Alert, Oriented x3 Results/Procedures Lab Laboratory Tests 09/12/20 03:05 Patient resulted labs reviewed. Assessment/Plan Assessment and Plan Assess & Plan/Chief Complaint STEMI s/p RCA CAD PVD s/p recent surgery management per cardiology Chest pain improved Continue DAPT PT but nonweight bearing on RLE DIABETES MELLITUS SSI BS mildly elevated this AM from goal Awaiting med rec to resume basal insulin PERIPHERAL NEUROPATHY Continue Lyrica when med rec available CONFUSION WITH SYMPTOMS OF CONCUSSION - FINDINGS of MRI: Ventricles and sulci are within normal limits. No sulcal effacement or midline shift is identified. No acute intra-axial or extra-axial hemorrhage is detected. Diffusion-weighted images are unremarkable. No diffusion restriction is seen. The corpus callosum is unremarkable. The sella and parasellar structures are unremarkable. No abnormal enhancement is identified following contrast administration. The normal expected flow-voids within the carotid siphons are seen. IMPRESSION: Unremarkable pre and post contrast MRI of the brain. Confusion likely due to concussion, but exacerbated this AM by morphine Discussed with nurse that if he needs repeat dose to do smaller but left it at current dose in case he has severe pain Diagnosis/Problems Diagnosis/Problems (1) STEMI (ST elevation myocardial infarction) Status: Acute Qualifiers: Involved coronary artery: right coronary artery Qualified Codes: I21.11 - ST elevation (STEMI) myocardial infarction involving right coronary artery (2) Ecchymosis of eye Status: Acute Qualifiers: Encounter type: initial encounter Laterality: right Qualified Codes: S05.11XA - Contusion of eyeball and orbital tissues, right eye, initial encounter (3) Postoperative bleeding from incision Status: Acute (4) CAD (coronary artery disease), [place] coronary artery (5) Anxiety Status: Chronic (6) IDDM (insulin dependent diabetes mellitus) Status: Acute Clinical Quality Measures DVT/VTE Risk/Contraindication: Risk Factor Score Per Nursin RFS Level Per Nursing on Admit: 4+=Very High MARTA ARREDONDO MD Sep 12, 2020 11:08
[2020-09-12] MEDS ORDERED: meTOprolol TARTRATE 25 MG (LOPRESSOR) TABLET PO SCH (11:45)
[2020-09-12] MEDS ORDERED: ENALAPRIL 2.5 MG (VASOTEC) TAB PO SCH (11:45)
[2020-09-12] MEDS ORDERED: lisINopril 5 MG (PRINIVIL) TABLET PO SCH (12:06)
[2020-09-12] MEDS ORDERED: CARVEDILOL 6.25 MG (COREG) TAB PO SCH (12:06)
[2020-09-12] MEDS ORDERED: LISI-556 PO (13:12)
[2020-09-12] MEDS ORDERED: CARV6.252 PO (13:12)
[2020-09-12] MEDS ORDERED: TICA90TA PO (13:13)
--- NOTE | 2020-09-12 15:39 | Cardiology Discharge Summary ---
Diagnosis/Chief Complaint Date of Admission Sep 10, 2020 at 07:03 Date of Discharge 09/12/2020 Admission Diagnosis Inferior STEMI, Concussion, Postsurgical bleeding left foot Final/Discharge Diagnosis Inferior STEMI, Post-concussion syndrome Chief Complaint/HPI Chief Complaint/HPI Syncope, chest pain Recent amputation of the left foot 2 weeks ago. Significant bleeding post surgery therefore antiplatelet agents were held. Syncope on the day of admission. In the ER ST segment elevations noted with chest pain. Discharge Summary Procedures Primary PCI to RCA with drug-eluting stent. Discharge Physical Examination Unremarkable. Hospital Course Was the Problem List Reviewed?: Yes Gradual improvement of mental status. Control of left foot bleeding. No chest pain or shortness of breath. Pending Labs Laboratory Tests 09/12/20 11:20: Glucometer 154 Discussion & Recommendations Discussion Discussed at length with the patient. Dual antiplatelet therapy for life. Beta osmar, AZEB inhibitor and high-dose Lipitor. Patient will follow with Dr. Lopez or Amanda has an outpatient. Follow up appt.: Follow-up with Dr. Lpoez or Amanda. Dicharge Diet: Cardiac Diet Activity as Tolerated: Yes Home Medications Reviewed patient Home Medication Reconciliation performed by pharmacy medication reconciliations corrosion technician and/or nursing. Patients Allergies have been reviewed. Discharge Home Medications: Reviewed and agree with Discharge Medication list on patient's Discharge Instruction sheet Condition at discharge Stable. Instructions to patient/family Discussed at length with the patient. Clinical Quality Measures DVT/VTE Risk/Contraindication: Risk Factor Score Per Nursin RFS Level Per Nursing on Admit: 4+=Very High Chris RANKIN MD Sep 12, 2020 15:39
--- NOTE | 2020-09-12 15:59 | NUR ---
DR RANKIN GAVE ORDERS FOR D/C TO HOME. RN GAVE PAPER WORK AND DISCONTINUED IV. PTS , NOHELIA, NOTIFIED AND BROUGHT PT UP CLOTHES TO CHANGED INTO. MORAIMA MENON RN, WATER SERVICE DISPATCHER, TOOK PT DOWN ON W/C. PT SIGNED PAPER FOR D/C.
== END 2020-09-12 16:00 | disposition home or self-care (01) | DRG 247 ==
LOC: EDUNIT# 04:03 → ER 04:05 → CATH 05:16 → ICU 07:03 → CSD 09-11 17:13
PROVIDERS: ADMIT Internal Medicine Interventional Cardiology; ATTEND Internal Medicine Interventional Cardiology
PROC: 027034Z Dilation of Coronary Artery, One Artery with Drug-eluting Intraluminal Device, Percutaneous Approach (ICD-10-PCS; principal; 2020-09-10)
PROC: 4A023N7 Measurement of Cardiac Sampling and Pressure, Left Heart, Percutaneous Approach (ICD-10-PCS; 2020-09-10)
PROC: B2111ZZ Fluoroscopy of Multiple Coronary Arteries using Low Osmolar Contrast (ICD-10-PCS; 2020-09-10)
PROC: B2151ZZ Fluoroscopy of Left Heart using Low Osmolar Contrast (ICD-10-PCS; 2020-09-10)
DX: I21.19 ST elevation (STEMI) myocardial infarction involving other coronary artery of inferior wall (principal); S06.0X9A Concussion with loss of consciousness of unspecified duration, initial encounter; I42.9 Cardiomyopathy, unspecified; I25.10 Atherosclerotic heart disease of native coronary artery without angina pectoris; I25.82 Chronic total occlusion of coronary artery; E11.40 Type 2 diabetes mellitus with diabetic neuropathy, unspecified; Z79.4 Long term (current) use of insulin; I10 Essential (primary) hypertension; E78.00 Pure hypercholesterolemia, unspecified; F41.9 Anxiety disorder, unspecified; F32.9 Major depressive disorder, single episode, unspecified; T87.89 Other complications of amputation stump; S05.11XA Contusion of eyeball and orbital tissues, right eye, initial encounter; W18.11XA Fall from or off toilet without subsequent striking against object, initial encounter; Y92.012 Bathroom of single-family (private) house as the place of occurrence of the external cause; Z95.5 Presence of coronary angioplasty implant and graft; Z90.49 Acquired absence of other specified parts of digestive tract; Z90.89 Acquired absence of other organs
CPT/HCPCS: 36415; 70450; 70486; 70553; 71045; 72125; 80048; 80053; 82962; 83735; 83880; 84100; 84484; 85025; 85027; 85347; 87081; 93005; 93306; 93458

== ENCOUNTER 2020-09-19 10:52 | Inpatient (IN) | payer OTHER ==
[~2020-09-19] VITALS: Ht 193 cm; Wt 123.1 kg
[~2020-09-19 10:52] MED LIST changes: +LISI-556 PO
[2020-09-19] MEDS ORDERED: ceFAZolin INJECTION 1,000 MG in WATER (STERILE) FOR INJECTION 10 ML IV ONE (11:15)
[2020-09-19 11:22] LABS: BASOPHILS % (AUTO) 0 % (0-10); EOSINOPHILS % (AUTO) 0 % (0-10); LYMPHOCYTES # (AUTO) 1.6 10^3/uL (1.0-4.0); LYMPHOCYTES % (AUTO) 27 % (12-44); MEAN CORPUSCULAR HEMOGLOBIN 30 pg (25-34); MEAN CORPUSCULAR HGB CONC 32 g/dL (32-36); MEAN CORPUSCULAR VOLUME 95 fL (80-99); MEAN PLATELET VOLUME 10.2 fL (9.0-12.2); MONOCYTES # (AUTO) 0.5 10^3/uL (0.0-1.0); MONOCYTES % (AUTO) 8 % (0-12); NEUTROPHILS # (AUTO) 3.7 10^3/uL (1.8-7.8); NEUTROPHILS % (AUTO) 64 % (42-75); PLATELET COUNT 249 10^3/uL (130-400); WHITE BLOOD COUNT 5.8 10^3/uL (4.3-11.0)
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
[2020-09-19 11:33] LABS: ALBUMIN 2.4 GM/DL (3.2-4.5); CHLORIDE 108 MMOL/L (98-107); POTASSIUM 4.5 MMOL/L (3.6-5.0); SODIUM 140 MMOL/L (135-145)
[2020-09-19 11:34] LABS: CALCIUM 7.2 MG/DL (8.5-10.1); HEMATOCRIT 20 % (40-54); HEMOGLOBIN 6.4 g/dL (13.3-17.7)
[2020-09-19 11:35] LABS: GLUCOSE 249 MG/DL (70-105); TOTAL PROTEIN 4.8 GM/DL (6.4-8.2)
[2020-09-19 11:36] LABS: CARBON DIOXIDE 23 MMOL/L (21-32)
[2020-09-19 11:37] LABS: BILIRUBIN,TOTAL 0.4 MG/DL (0.1-1.0)
--- NOTE | 2020-09-19 11:38 | Diagnostic Imaging Report ---
INDICATION: Chest pain and confusion. TIME OF EXAM: 11:18 a.m. COMPARISON: Correlation is made with prior chest 09/10/2020. FINDINGS: The heart size is normal. The pulmonary vascularity is unremarkable. The lungs are clear. No infiltrate, effusion or pneumothorax is detected. IMPRESSION: No acute cardiopulmonary process is detected. Dictated by: Dictated on workstation # [id number]
[2020-09-19 11:39] LABS: ALKALINE PHOSPHATASE 80 U/L (40-136); CREATININE SERUM 0.97 MG/DL (0.60-1.30); GFR ESTIMATED > 60; INR 1.1 (0.8-1.4)
[2020-09-19 11:40] LABS: BUN/CREATININE RATIO 19
[2020-09-19 11:42] LABS: ALANINE AMINOTRANSFERASE 11 U/L (0-55); MAGNESIUM 1.7 MG/DL (1.6-2.4)
--- NOTE | 2020-09-19 11:46 | Diagnostic Imaging Report ---
PROCEDURE: CT head without contrast. TECHNIQUE: Multiple contiguous axial images were obtained through the brain without the use of intravenous contrast. Auto Exposure Controls were utilized during the CT exam to meet ALARA standards for radiation dose reduction. INDICATION: Syncope, confused, chest pain FINDINGS: Noncontrast CT scanning of the head is compared to exam from September 10. There is no mass effect, midline shift, hemorrhage or extra-axial fluid collections. Sutton-white matter differentiation is normal. Ventricles, cortical sulci and basilar cisterns appear normal. Osseous structures demonstrate no evidence of fracture. No fluid is seen in the paranasal sinuses or mastoid or air cells. IMPRESSION: Normal CT scan the head. Dictated by: Dictated on workstation # [id number]
[2020-09-19] MEDS ORDERED: LACTATED RINGERS 1,000 ML IV ONE (12:00)
--- NOTE | 2020-09-19 12:02 | NUR ---
1202- [employer] NOTIFIED 1213- DR MARIA IN ER PTS AND DAUGHTER UPDATED OF PATIENTS CONDITION AT THIS TIME.
[2020-09-19] MEDS ORDERED: NS IV 500 ML 500 ML ONE (12:05)
[2020-09-19] MEDS ORDERED: NS IV 1000 ML 1,000 ML ONE ×2 (12:06→12:45)
[2020-09-19] MEDS ORDERED: HEParin 1000 UNIT/ML (10ML VIAL) FOR BOLUS ONE ×2 (12:06→12:21)
[2020-09-19] MEDS ORDERED: LIDOCAINE 1% INJ 20 ML 20 ML VIAL ONE (12:06)
[2020-09-19] MEDS ORDERED: HEParin (CATH LAB) 2,000 ML IV ONE (12:06)
[2020-09-19] MEDS ORDERED: MIDAZOLAM 5 MG/5 ML (VERSED) VIAL ONE (12:07)
[2020-09-19] MEDS ORDERED: NITRO DRIP 25000 MCG/D5W 250 ML IV ONE (12:07)
[2020-09-19] MEDS ORDERED: fentaNYL INJECTION 100 MCG/2 ML AMP ONE (12:07)
[2020-09-19 12:21] VITALS: BP 105/76
[2020-09-19] MEDS ORDERED: morphine INJ 10 MG/ML 1ML (SYR OR VIAL) ONE (12:27)
[2020-09-19] MEDS ORDERED: morphine INJ 10 MG/ML 1ML (SYR OR VIAL) IVP STA (12:27)
--- NOTE | 2020-09-19 12:28 | Consultation-Cardiology ---
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 He is hypotensive with persistent EKG changes with ST elevation in the inferior wall. Home Medications & Allergies Allergies: Coded Allergies: linezolid (Verified Allergy, Unknown, 06/17/19) Home Medication List Reviewed: Yes KXL-Cutevx-Iadzow Hx Patient Social History Alcohol Use: Denies Use Recreational Drug Use: No Smoking Status: Never a Smoker 2nd Hand Smoke Exposure: No Recent Foreign Travel: No Recent Infectious Disease Expo: No Recent Hopitalizations: Yes (Aug FOOT PARTIAL LEFT FOOT AMPUTATION) Immunizations Up To Date Tetanus Booster (TDap): Unknown Date of Pneumonia Vaccine: Jan 02, 2011 Date of Influenza Vaccine: Aug 07, 2019 Past Medical History Discussed below Family Medical History Significant Family History: Heart Disease, COPD, Diabetes, Hypertension, Psychiatric Problems, Renal Disease, Vascular Disease Family History: Family history: Cardiovascular disease 19 FATHER Family history: Diabetes mellitus 19 MOTHER Review of Systems-General Review of Systems Constitutional: see HPI; No chills, No diaphoresis; dizziness, malaise, weakness EENTM: see HPI; No ear discharge, No hearing loss, No ear pain Respiratory: see HPI; No cough, No short of breath Cardiovascular: see HPI, chest pain; No edema; Hx of Intervention; No palpitations; syncope Gastrointestinal: no symptoms reported, see HPI; No abdominal pain, No constipation, No diarrhea Genitourinary: see HPI; No discharge, No dysuria Musculoskeletal: see HPI; No back pain, No joint pain Skin: see HPI, other (bleeding from his wound in the foot) Psychiatric/Neurological: See HPI All Other Systems Reviewed Negative Unless Noted: Yes Reviewed Test Results Reviewed Test Results Lab Laboratory Tests Test 11/15/20 11:00 09/19/20 11:01 Range/Units White Blood Count 5.8 4.3-11.0 10^3/uL Red Blood Count 2.12 L 4.30-5.52 10^6/uL Hemoglobin 6.4 *L 13.3-17.7 g/dL Hematocrit 20 *L 40-54 % Mean Corpuscular Volume 95 80-99 fL Mean Corpuscular Hemoglobin 30 25-34 pg Mean Corpuscular Hemoglobin Concent 32 32-36 g/dL Red Cell Distribution Width 14.6 H 10.0-14.5 % Platelet Count 249 130-400 10^3/uL Mean Platelet Volume 10.2 9.0-12.2 fL Immature Granulocyte % (Auto) 1 % Neutrophils (%) (Auto) 64 42-75 % Lymphocytes (%) (Auto) 27 12-44 % Monocytes (%) (Auto) 8 0-12 % Eosinophils (%) (Auto) 0 0-10 % Basophils (%) (Auto) 0 0-10 % Neutrophils # (Auto) 3.7 1.8-7.8 10^3/uL Lymphocytes # (Auto) 1.6 1.0-4.0 10^3/uL Monocytes # (Auto) 0.5 0.0-1.0 10^3/uL Eosinophils # (Auto) 0.0 0.0-0.3 10^3/uL Basophils # (Auto) 0.0 0.0-0.1 10^3/uL Immature Granulocyte # (Auto) 0.0 0.0-0.1 10^3/uL Prothrombin Time 15.0 H 12.2-14.7 SEC INR Comment 1.1 0.8-1.4 Activated Partial Thromboplast Time 26 24-35 SEC Sodium Level 140 135-145 MMOL/L Potassium Level 4.5 3.6-5.0 MMOL/L Chloride Level 108 H 98-107 MMOL/L Carbon Dioxide Level 23 21-32 MMOL/L Anion Gap 9 5-14 MMOL/L Blood Urea Nitrogen 18 7-18 MG/DL Creatinine 0.97 0.60-1.30 MG/DL Estimat Glomerular Filtration Rate > 60 BUN/Creatinine Ratio 19 Glucose Level 249 H 70-105 MG/DL Calcium Level 7.2 L 8.5-10.1 MG/DL Corrected Calcium 8.5 8.5-10.1 MG/DL Magnesium Level 1.7 1.6-2.4 MG/DL Total Bilirubin 0.4 0.1-1.0 MG/DL Aspartate Amino Transf (AST/SGOT) 15 5-34 U/L Alanine Aminotransferase (ALT/SGPT) 11 0-55 U/L Alkaline Phosphatase 80 40-136 U/L Myoglobin 51.9 10.0-92.0 NG/ML Troponin I 1.048 *H <0.028 NG/ML B-Type Natriuretic Peptide 1254.7 H <100.0 PG/ML Total Protein 4.8 L 6.4-8.2 GM/DL Albumin 2.4 L 3.2-4.5 GM/DL Glucometer 250 H 70-110 MG/DL Physical Exam Physical Exam Vital Signs Vital Signs - First Documented 09/19/20 10:54 Temp 35.1 Pulse 74 Resp 15 B/P (MAP) 123/82 (96) Pulse Ox 100 O2 Delivery Room Air Capillary Refill : Less Than 3 Seconds Height, Weight, BMI Height: 6'4.00" Weight: 240lbs. 3.0oz. [id number]; 30.00 BMI Method:Stated General Appearance: Moderate Distress, Other (chronically ill, obese) Eyes: Bilateral Eye Normal Inspection, Bilateral Eye PERRL, Bilateral Eye EOMI HEENT: PERRL/EOMI, Pharynx Normal, Moist Mucous Membranes Neck: Full Range of Motion, Normal Inspection Respiratory: Lungs Clear, Normal Breath Sounds, No Accessory Muscle Use, No Respiratory Distress Cardiovascular: Regular Rate, Rhythm, No Edema, Normal Peripheral Pulses Gastrointestinal: Normal Bowel Sounds, No Organomegaly, Non Tender, Soft Back: Normal Inspection, No CVA Tenderness, No Vertebral Tenderness Extremity: Slow Capillary Refill, Other (bulky gauze dressing with a pressure dressing over top of that) Neurologic/Psychiatric: Alert, Oriented x3 Skin: Other (pale with dusky extremities) Lymphatic: No Adenopathy A/P-Cardiology Admission Diagnosis Acute ST elevation myocardial infarction Congestive heart failure Hypotensive shock Anemia Assessment/Plan Acute ST elevation myocardial infarction status post recent ST elevation myocardial infarction in the inferior wall on September 10, 2020 with deployment of resolute 3 x 22 stent expanded to 3.5 mm with excellent results. Patient has been compliant with his medication, chest pain started while he was in the emergency room, initial EKG did not have any acute changes. I will proceed with emergency cardiac catheterization Coronary artery disease, history of multiple intervention, last cardiac catheterization was done on September 10, 2020 showing patent stent in the mid LAD, patent stent in the obtuse marginal branch, severe stenosis at the ostial first obtuse marginal branch/ramus intermedius which was too small for intervention and severe stenosis in the right coronary artery was successful stenting. Congestive heart failure, chronic left ventricular systolic dysfunction with ejection fraction 45-50 percent Severe anemia secondary to acute blood loss from his wound. Will transfuse 2 units of packed RBCs and continue with IV fluid Active bleeding from leg wound, status post 2 layers of sutures done by Dr. Petty which was reportedly stop the bleeding. Hypotensive shock secondary to hypovolemia. Receiving IV fluid and blood transfusion Hyperlipidemia, restart statin Peripheral arterial disease, amputation as described above Diabetes mellitus Extensive peripheral arterial disease JONH MARIA MD Sep 19, 2020 12:28
[2020-09-19 12:30] VITALS: BP 121/90
[2020-09-19] MEDS ORDERED: HEParin 1000 UNIT/ML (10ML VIAL) FOR BOLUS IV SCH (12:30)
[2020-09-19 12:37] VITALS: BP 121/90
--- NOTE | 2020-09-19 12:41 | Cardiac Procedure Note-CS/ASA ---
Pre-Procedure Note Pre-Op Procedure Note H&P Reviewed The H&P was reviewed, patient examined and no changes noted. Date H&P Reviewed: Sep 19, 2020 Time H&P Reviewed: 12:41 Conscious Sedation Pre-Proced Time 12:41 ASA Score 3 For ASA 3 and 4: Consider anesthesia and medical clearance. Also, for patients with a history of failed moderate sedation consider anesthesia. Airway Lungs Heart ASA score ASA 1: a normal healthy patient ASA 2: a patient with a mild systemic disease (mid diabetes, controlled hypertension, obesity x ASA 3: a patient with a severe systemic disease that limits activity (angina, COPD, prior Myocardial infarction) ASA 4: a patient with an incapacitating disease that is a constant threat to life (CHF, renal failure) ASA 5: a moribund patient not expected to survive 24 hrs. (ruptured aneurysm) ASA 6: a declared brain- patient whose organs are being harvested. For emergent operations, add the letter E after the classification Mallampati Classification Grade 3 Sedation Plan Analgesia, Amnesia, Plan communicated to team members, Discussed options with patient/fam, Discussed risks with patient/fam The patient is an appropriate candidate to undergo the planned procedure, sedation, and anesthesia. The patient immediately re-assessed prior to indication. JONH MARIA MD Sep 19, 2020 12:41
[2020-09-19] MEDS ORDERED: NS (IVPB) 0 ML ONE (13:02)
[2020-09-19] MEDS ORDERED: niCARdipine 25 MG/10 ML (CARDENE) AMP IV ONE (13:02)
[2020-09-19] MEDS ORDERED: PATIENT MAY USE OWN MEDS, ALL PO SCH (13:30)
--- NOTE | 2020-09-19 13:34 | Cardiac Cath Report ---
Cardiac Cath Report Physician (s)/Space Controller (s) Physician JONH MARIA MD Pre-Procedure Diagnosis Pre-Procedure Diagnosis: acute myocardial infarction Post-Procedure Note Procedure Start Date: Sep 19, 2020 Name of Procedure: Left heart catheterization Left ventriculogram Catheter thrombectomy to the right coronary artery Emergency PTCA to the right coronary artery Findings/Procedure Note PROCEDURE NOTE: 60 years old gentleman with extensive history of coronary artery disease multiple stents in the past, had a recent stent done on September 10, 2020 using resolute integrity 3 x 22 expanded to 3.5 mm with excellent results. Patient had a syncopal episode after starting to have bleeding from his leg then he became unresponsive CPR more cold and then brought by EMS to the emergency room. Patient was complaining of generalized body ache and fatigue no EKG changes noted on arrival to the emergency room. At 1155 a.m. patient started to have chest pain and ST elevation in the inferolateral leads, the bleeding was stopped with suturing with Dr. Petty, hemoglobin was low and blood pressure was low. Decision to proceed with emergency coronary angiogram was made. After explaining the procedure to the patient, all pros and cons were explained, all questions were answered. The patient signed the consent and then he was placed on the cardiac catheterization laboratory. Groin was prepped SL fashion local anesthesia was used. Sheath placed in the right femoral artery with significant difficulty due to heavy scar tissue in the groin. I had to change the sheath and using new sheath due to tortuosity. I proceeded immediately with Chuck right guide advanced to the right coronary artery and angiogram showed total occlusion. I was able to advance the wire to the midportion and had significant resistance, I advanced [place] catheter and did thrombectomy. Angiogram showed slight improvement but no full resolution of the blood flow in the right coronary artery. I used 3.0 Treck balloon and advanced the wire distally then did multiple inflation at the site of the thrombus within the old stent and angiogram showed resolution of the blood flow with excellent results. Due to the fact that patient had a 3.5 expansion of his stent on the past procedure I advanced 3.5 x 15 mm Treck balloon and did multiple inflation, angiogram showed full resolution, slightly slower flow due to hypotension but overall patient was feeling better reporting improvement chest pain and there was excellent flow in the right coronary artery. Chuck left catheter was advanced to the left coronary system and angiogram was done then the pigtail catheter advanced to the left ventricular cavity and left ventriculogram was done At the end of the procedure the sheath was removed. Closure device was deployed FINDINGS: Hemodynamics LV 105/26, end-diastolic pressure of 26 Aorta 108/65 mean of 85 ANATOMY: Left Main has mild disease Left Anterior Descending has patent stent in the mid LAD with mild disease nonobstructive disease Left Circumflex has a patent stent in the second obtuse marginal branch with mild diffuse disease Ramus intermedius/high obtuse marginal has severe ostial stenosis/subtotal occlusion, very small artery that has been chronically diseased Right Coronory Artery was totally occluded with a thrombus distally, successful affective thrombectomy and balloon angioplasty using 3.5 x 15 mm balloon with excellent results, time from initial chest pain to establishment of flow was 69 minutes LV Gram was done showing dilated left ventricle with diffuse left ventricular hypokinesia, akinesia of the inferior wall, EF 30 percent CONCLUSION: 1. Acute total occlusion within the stent of the right coronary artery was successful intervention with establishment of blood flow within 69 minutes 2. Total occlusion at the mid to distal right coronary artery with heavy thrombus, thrombectomy then balloon angioplasty using Treck 3.5 x 15 mm with multiple inflation with excellent results 3. Patent stent in the LAD and second obtuse marginal branch with mild to moderate distal small vessel disease did not change compared to last week 4. Subtotal occlusion at the ostial of ramus intermedius/high obtuse marginal branch that has been chronically disease did not change compared to previous study from 2018 DISCUSSION AND RECOMMENDATION: Patient had stent thrombosis due to severe hypotension probably and severe anemia receiving multiple blood transfusions, received 5000 units of heparin in the catheter lab, I will load him again with aspirin and Plavix, I will hold off on the antihypertensive medication at this point due to hypotensive shock, will use diuretics due to elevated left ventricular end-diastolic pressure and multiple units of blood transfusion and IV fluid, restart statin Anesthesia Type: Conscious Sedation Estimated blood loss (mL): 50 ml Contrast Amount: 55 ml Total Radiation Dose: 1850 mGy Post-Procedure Diagnosis Post-operative diagnosis: Acute ST elevation myocardial infarction Hypotensive shock Acute blood loss anemia Peripheral arterial disease JONH MARIA MD Sep 19, 2020 13:33
[2020-09-19] MEDS ORDERED: CLOPIDOGREL 300 MG (PLAVIX) TABLET PO ONE (13:38)
--- NOTE | 2020-09-19 14:00 | NUR ---
LUIS BARRERA admitted to room CU8-1, with an admitting diagnosis of EKG changes. LUIS BARRERA introduced to surroundings, call light, bed controls, phone, TV, temperature control, lights, meal times, smoking policy, visitor policy, side rail policy, bathrooms and showers. Patient Rights given to patient in the handbook. LUIS BARRERA verbalizes understanding that [facility] is not responsible for the loss or damage to any personal effects or valuables that are kept in the patients posession during their hospitalization. Patient Care Plans were discussed with the patient. LUIS BARRERA verbalizes understanding of Interdisciplinary Patient Education. Patient was informed about the Rapid Response Team and its purpose.
[2020-09-19] MEDS: PANTOPRAZOLE 40 MG (PROTONIX) TAB PO SCH (14:40)
[2020-09-19] MEDS: NS IV 1000 ML 1,000 ML IV SCH ×2 (14:42→23:21)
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
[2020-09-19] MEDS ORDERED: FUROSEMIDE 40 MG/4 ML INJ (LASIX) IVP ONE (16:00)
[2020-09-19] MEDS ORDERED: ACETAMINOPHEN 325 MG TABLET ONE (16:56)
[2020-09-19] MEDS: ACETAMINOPHEN 325 MG TABLET PO PRN ×2 (16:59→21:43)
[2020-09-19 17:30] LABS: HEMOGLOBIN 8.2 g/dL (13.3-17.7)
[2020-09-19] MEDS ORDERED: clonazePAM 1 MG (KlonoPIN) TAB ONE (20:39)
[2020-09-19] MEDS: clonazePAM 1 MG (KlonoPIN) TAB PO SCH (20:42)
[2020-09-20 03:24] LABS: HEMOGLOBIN 8.1 g/dL (13.3-17.7); MEAN PLATELET VOLUME 10.1 fL (9.0-12.2)
[2020-09-20 03:46] LABS: CHLORIDE 106 MMOL/L (98-107); POTASSIUM 4.2 MMOL/L (3.6-5.0); SODIUM 138 MMOL/L (135-145)
[2020-09-20 03:47] LABS: CALCIUM 7.3 MG/DL (8.5-10.1)
[2020-09-20 03:48] LABS: GLUCOSE 209 MG/DL (70-105); TRIGLYCERIDES 248 MG/DL (<150); VLDL CHOLESTEROL 50 MG/DL (5-40)
[2020-09-20 03:49] LABS: CARBON DIOXIDE 25 MMOL/L (21-32)
[2020-09-20 03:51] LABS: PHOSPHORUS 2.8 MG/DL (2.3-4.7)
[2020-09-20 03:52] LABS: CREATININE SERUM 1.05 MG/DL (0.60-1.30); GFR ESTIMATED > 60
[2020-09-20 03:53] LABS: BUN/CREATININE RATIO 18; CHOLESTEROL 110 MG/DL (< 200)
[2020-09-20 03:54] LABS: HDL CHOLESTEROL 29 MG/DL (40-60); MAGNESIUM 1.9 MG/DL (1.6-2.4)
[2020-09-20] MEDS: ASPIRIN E.C. 81 MG (ECOTRIN) TAB PO SCH (07:44)
[2020-09-20] MEDS: FERROUS SULF 325 MG (IRON) TAB PO SCH ×2 (07:44→17:22)
[2020-09-20] MEDS: CLOPIDOGREL 75 MG (PLAVIX) TABLET PO SCH (07:44)
[2020-09-20] MEDS: PANTOPRAZOLE 40 MG (PROTONIX) TAB PO SCH (07:44)
[2020-09-20] MEDS: NS IV 1000 ML 1,000 ML IV SCH (08:33)
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
--- NOTE | 2020-09-20 09:56 | Progress Note - Surgery ---
ONESIMO ROJAS MED STUDENT 09/20/20 0956: Subjective Subjective/Events-last exam Pt states his foot began bleeding through the bandages early this morning sometime after 4 am. Also notes some left sided chest pain that is unchanged since his admission. Pt on ASA and Plavix. INR is 1.1 today. After 3 blood transfusions, pt's hemoglobin is 8.1 today from 6.4 yesterday. Objective Exam Vital Signs Date Time Temp Pulse Resp B/P (MAP) Pulse Ox O2 Delivery O2 Flow Rate FiO2 09/20/20 08:11 36.3 09/20/20 06:00 72 15 138/80 92 Room Air 09/20/20 05:00 73 15 131/69 91 Room Air 09/20/20 04:00 73 123/69 97 Room Air 09/20/20 03:20 96 Room Air 09/20/20 03:20 36.6 09/20/20 03:00 78 140/90 98 Room Air 09/20/20 02:00 73 131/76 94 Room Air 09/20/20 01:00 66 09/20/20 01:00 66 118/76 97 Room Air 09/20/20 00:00 74 104/57 Room Air 09/19/20 23:09 36.2 09/19/20 23:09 96 Room Air 09/19/20 23:00 73 29 95/49 96 Room Air 09/19/20 22:00 73 121/75 98 Room Air 09/19/20 21:00 74 126/77 97 Room Air 09/19/20 20:00 96 Room Air 09/19/20 20:00 74 109/67 95 Room Air 09/19/20 19:51 36.4 09/19/20 19:00 67 99/69 99 Room Air 09/19/20 19:00 67 09/19/20 19:00 Room Air 09/19/20 18:00 73 9 96/71 99 Nasal Cannula 2.00 09/19/20 17:00 76 16 105/75 99 Nasal Cannula 2.00 09/19/20 16:00 79 13 117/79 96 Nasal Cannula 2.00 09/19/20 16:00 Nasal Cannula 2.00 09/19/20 15:00 81 21 115/74 98 Nasal Cannula 2.00 09/19/20 14:45 78 21 117/75 98 Nasal Cannula 2.00 09/19/20 14:30 80 8 113/72 91 Nasal Cannula 2.00 09/19/20 14:19 79 09/19/20 14:15 78 10 113/74 100 Nasal Cannula 2.00 09/19/20 14:00 80 24 115/70 94 Nasal Cannula 2.00 09/19/20 12:37 35.6 72 6 121/90 94 Nasal Cannula 3.00 09/19/20 12:30 35.6 77 7 121/90 100 09/19/20 12:21 35.4 70 16 105/76 94 09/19/20 12:00 Nasal Cannula 2.00 09/19/20 10:54 35.1 74 15 123/82 (96) 100 Room Air I & O 09/20/20 07:00 Intake Total 2750 ml Output Total 2200 ml Balance 550 ml Capillary Refill : Less Than 3 Seconds General Appearance: Chronically ill, Obese HEENT: PERRL/EOMI, Normal ENT Inspection Neck: Normal Inspection, Supple Respiratory: Lungs Clear, Normal Breath Sounds, No Accessory Muscle Use, No Respiratory Distress, Other (left chest wall tenderness) Cardiovascular: Regular Rate, Rhythm, No Edema, Normal Peripheral Pulses Gastrointestinal: non tender, soft Extremity: No Pedal Edema, Other (prior amputation of all toes bilaterally; bulky gauze dressing with a pressure dressing on left foot has some blood that seeped through; dressing removed, sutures intact, some area of maceration, but no active bleeding; foot rebandaged with gauze and coban) Neurologic/Psychiatric: Alert, Oriented x3, No Motor/Sensory Deficits, Normal Mood/Affect Skin: Normal Color, Warm/Dry, Other (pale with dusky extremities) Lymphatic: No Adenopathy Results Lab Laboratory Tests 09/19/20 11:00: White Blood Count 5.8, Red Blood Count 2.12L, Hemoglobin 6.4*L, Hematocrit 20*L, Mean Corpuscular Volume 95, Mean Corpuscular Hemoglobin 30, Mean Corpuscular Hemoglobin Concent 32, Red Cell Distribution Width 14.6H, Platelet Count 249, Mean Platelet Volume 10.2, Immature Granulocyte % (Auto) 1, Neutrophils (%) (Auto) 64, Lymphocytes (%) (Auto) 27, Monocytes (%) (Auto) 8, Eosinophils (%) (Auto) 0, Basophils (%) (Auto) 0, Neutrophils # (Auto) 3.7, Lymphocytes # (Auto) 1.6, Monocytes # (Auto) 0.5, Eosinophils # (Auto) 0.0, Basophils # (Auto) 0.0, Immature Granulocyte # (Auto) 0.0, Prothrombin Time 15.0H, INR Comment 1.1, Activated Partial Thromboplast Time 26, Sodium Level 140, Potassium Level 4.5, Chloride Level 108H, Carbon Dioxide Level 23, Anion Gap 9, Blood Urea Nitrogen 18, Creatinine 0.97, Estimat Glomerular Filtration Rate > 60, BUN/Creatinine Ratio 19, Glucose Level 249H, Calcium Level 7.2L, Corrected Calcium 8.5, Magnesium Level 1.7, Total Bilirubin 0.4, Aspartate Amino Transf (AST/SGOT) 15, Alanine Aminotransferase (ALT/SGPT) 11, Alkaline Phosphatase 80, Myoglobin 51.9, Troponin I 1.048*H, B-Type Natriuretic Peptide 1254.7H, Total Protein 4.8L, Albumin 2.4L 09/19/20 11:01: Glucometer 250H 09/19/20 12:00: Glucometer 188H 09/19/20 17:15: Hemoglobin 8.2#L, Hematocrit 25L 09/20/20 03:01: White Blood Count 9.0, Red Blood Count 2.69L, Hemoglobin 8.1L, Hematocrit 25L, Mean Corpuscular Volume 92, Mean Corpuscular Hemoglobin 30, Mean Corpuscular He moglobin Concent 33, Red Cell Distribution Width 15.8H, Platelet Count 202, Mean Platelet Volume 10.1, Sodium Level 138, Potassium Level 4.2, Chloride Level 106, Carbon Dioxide Level 25, Anion Gap 7, Blood Urea Nitrogen 19H, Creatinine 1.05, Estimat Glomerular Filtration Rate > 60, BUN/Creatinine Ratio 18, Glucose Level 209H, Calcium Level 7.3L, Phosphorus Level 2.8, Magnesium Level 1.9, Troponin I 7.951*H, Triglycerides Level 248H, Cholesterol Level 110, LDL Cholesterol Direct 42, VLDL Cholesterol 50H, HDL Cholesterol 29L 09/20/20 09:40: Lab Scanned Report Transfusion Reaction Form Assessment/Plan Assessment/Plan Assessment/Plan Status post left forefoot amputation with bleeding wound Anemia secondary to acute blood loss from surgical wound Syncope STEMI Coronary artery disease Type 2 diabetes The left forefoot amputation does not have any active bleeding currently. Bandage was replaced on exam. We will keep the area clean and dry and monitor closely No surgical intervention at this time needed. Medical management. Clinical Quality Measures DVT/VTE Risk/Contraindication: Risk Factor Score Per Nursin RFS Level Per Nursing on Admit: 4+=Very High ADRIANO GREWAL DO 09/21/20 1525: Subjective Date Seen by a Provider: Sep 20, 2020 Time Seen by a Provider: 15:22 Subjective/Events-last exam Patient had a little bit of oozing from the left foot incision. This has since stopped. Patient states the foot does not really cause him any pain or discomfort. Patient is on Plavix and aspirin and has required blood transfusion due to blood loss. Denies any nausea vomiting fever sweats chills. Objective Exam General Appearance: No Apparent Distress, Chronically ill, Obese HEENT: PERRL/EOMI, Normal ENT Inspection Neck: Normal Inspection, Supple Respiratory: Chest Non Tender, No Accessory Muscle Use, No Respiratory Distress Cardiovascular: Regular Rate, Rhythm, No Edema Gastrointestinal: non tender, soft Extremity: Non Tender, No Calf Tenderness, Other (prior amputation of all toes bilaterally; bulky gauze dressing with a pressure dressing on left foot has some blood that seeped through; dressing removed, sutures intact, some area of maceration, but no active bleeding; foot rebandaged with gauze and coban) Neurologic/Psychiatric: Alert, Oriented x3 Skin: Normal Color, Warm/Dry, Other (Changes to left lower extremity as noted above) Lymphatic: No Adenopathy Assessment/Plan Assessment/Plan Assessment/Plan Status post left forefoot amputation with bleeding wound Anemia secondary to acute blood loss from surgical wound Syncope STEMI Coronary artery disease Type 2 diabetes The left forefoot amputation does not have any active bleeding currently. Bandage was replaced on exam. We will keep the area clean and dry and monitor closely No surgical intervention at this time needed. Medical management. Supervisory-Addendum Brief Verification & Attestation Participated in pt care: history, MDM, physical Personally performed: exam, history, MDM, supervision of care Care discussed with: Medical Student Procedures: n/a Results interpretation: Verified all documentation Verification and Attestation of Medical Student E/M Service A medical student performed and documented this service in my presence. I reviewed and verified all information documented by the medical student and made modifications to such information, when appropriate. I personally performed the physical exam and medical decision making. Adriano Grewal, Sep 20, 2020,15:25 ONESIMO ROJAS MED STUDENT Sep 20, 2020 09:56 ADRIANO GREWAL DO Sep 21, 2020 15:25
--- NOTE | 2020-09-20 10:32 | Cardiology Progress Note ---
Subjective Date Seen by Provider: Sep 20, 2020 Time Seen by Provider: 10:28 Subjective/Events-last exam Patient was seen at bedside, laying down in bed, complaining of chest pain, had mild bleeding from the stump Review of Systems General: No Chills, No Night Sweats, No Fatigue, No Malaise, No Appetite, No Other HEENT: No Head Aches, No Visual Changes, No Eye Pain, No Ear Pain, No Dysphasia, No Sinus Congestion, No Post Nasal Drip, No Sore Throat, No Other Pulmonary: No Dyspnea, No Cough, No Pleuritic Chest Pain, No Other Cardiovascular: Chest Pain; No: Palpitations, Orthopnea, Paroxysmal Noc. Dyspnea, Edema, Lt Headedness, Other Objective-Cardiology Exam Last Set of Vital Signs Vital Signs 09/19/20 09/20/20 09/20/20 09/20/20 09/20/20 18:00 06:00 06:48 08:00 08:11 Temp 36.3 Pulse 77 Resp 15 B/P (MAP) 138/80 Pulse Ox 92 O2 Delivery Room Air O2 Flow Rate 2.00 Capillary Refill : Less Than 3 Seconds I&O Intake and Output 09/20/20 00:00 Intake Total 2450 ml Output Total 550 ml Balance 1900 ml Intake Oral 650 ml IV Total 1800 ml Output Urine Total 550 ml Daily Weight Change No General: Alert, Oriented X3, Cooperative HEENT: Atraumatic, PERRLA Neck: Supple, No JVD, No Thyromegaly Lungs: Clear to Auscultation, Normal Air Movement Heart: Regular Rate, Normal S1, Normal S2, No Murmurs, Other (S3 present) Abdomen: Normal Bowel Sounds, Soft, No Tenderness, No Hepatosplenomegaly, No Masses Extremities: No Clubbing, No Cyanosis, No Edema, Normal Pulses, No T enderness/Swelling Skin: Other (bleeding from the foot wound) Neuro: Normal Speech, Normal Tone, Sensation Intact Psych/Mental Status: Mental Status NL, Other (depressed mood) Results Lab Laboratory Tests 09/19/20 11:00 09/19/20 17:15 09/20/20 03:01 A/P-Cardiology Admission Diagnosis Acute ST elevation myocardial infarction Congestive heart failure Hypotensive shock Anemia Assessment/Plan Acute ST elevation myocardial infarction status post recent ST elevation myocardial infarction in the inferior wall on September 10, 2020 with deployment of resolute 3 x 22 stent expanded to 3.5 mm with excellent results. Patient has been compliant with his medication, chest pain started while he was in the emergency room, initial EKG did not have any acute changes. Emergency cardiac catheterization was done showing occlusion of the stent in the distal right coronary artery, successful thrombectomy then balloon angioplasty with excellent results Coronary artery disease, history of multiple intervention, last cardiac catheterization was done on September 10, 2020 showing patent stent in the mid LAD, patent stent in the obtuse marginal branch, severe stenosis at the ostial first obtuse marginal branch/ramus intermedius which was too small for intervention and severe stenosis in the right coronary artery was successful stenting. Cardiac catheterization done on September 19, 2020 showing thrombus with total occlusion of the stent in the distal right coronary artery, successful thrombectomy followed by balloon angioplasty to the distal right coronary artery using 3.5 x 15 mm balloon with excellent results. Recurrent chest pain, still having active chest pain, I will restart Ranexa and evaluate tolerance and response Significant bleeding from his leg, multiple episodes followed by severe hypotension and syncope, patient is maintained on aspirin and Plavix, I will evaluate Plavix metabolism Congestive heart failure, chronic left ventricular systolic dysfunction with ejection fraction 45-50 percent, ejection fraction during cardiac catheterization showed deterioration. I will repeat 2-D echo Severe anemia secondary to acute blood loss from his wound. Received 3 units of packed RBCs and IV fluid. Continue to monitor H&H, I started him on iron supplement Active bleeding from leg wound, status post 2 layers of sutures done by Dr. Petty which has stopped the bleeding, had mild oozing today, seen and managed by Dr. Grewal Hypotensive shock secondary to hypovolemia. Blood pressure is better today. Hyperlipidemia, restart statin Peripheral arterial disease, amputation as described above Diabetes mellitus Extensive peripheral arterial disease Depression, managed by primary care physician Clinical Quality Measures DVT/VTE Risk/Contraindication: Risk Factor Score Per Nursin RFS Level Per Nursing on Admit: 4+=Very High JONH MARIA MD Sep 20, 2020 10:32
[2020-09-20] MEDS: DULoxetine 30 MG (CYMBALTA) CAP PO SCH ×2 (10:54→20:07)
--- NOTE | 2020-09-20 12:13 | Physical Therapy Evaluation ---
PT Evaluation-General Medical Diagnosis Admission Date Sep 20, 2020 at 08:59 Medical Diagnosis: STEMI Onset Date: Sep 19, 2020 Therapy Diagnosis Therapy Diagnosis: debility/weakness Height/Weight Height (Feet): 6 Height (Inches): 4.00 Weight (Pounds): 240 Weight (Ounces): 3.0 Precautions Precautions/Isolations: Fall Prevention, Standard Precautions Weight Bear Status Right Lower Extremity: Right Weight Bearing/Tolerated Left Lower Extremity: Left Non Weight Bearing uses knee scooter for mobility in home per patient report Referral Physician: Leland Reason for Referral: Evaluation/Treatment Medical History Pertinent Medical History: CAD, DM, HTN, SC, Neuropathy Additional Medical History bilateral partial foot amputation Current History ER secondary to syncopal episode while driving/left foot bleeding and unresponsive Reviewed History: Yes Social History Home: Single Level Current Living Status: Spouse Entry Into Home: Ramp Prior Prior Level of Function SCALE: Activities may be completed with or without assistive devices. 3-Btlzhkmcxj-qdxpsyi completes the activity by him/herself with no assistance from a helper. 5-Set-up or Clean-up Assistance-helper sets up or cleans up; patient completes activity. Friendly assists only prior to or following the activity. 4-Supervision or Touching Assistance-helper provides verbal cues and/or touching/steadying and/or contact guard assistance as patient completes activity. Assistance may be provided throughout the activity or intermittently. 3-Partial/Moderate Assistance-helper does LESS THAN HALF the effort. Friendly lifts, holds or supports trunk or limbs, but provides less than half the effort. 2-Substantial/Maximal Assistance-helper does MORE THAN HALF the effort. Friendly lifts or holds trunk or limbs and provides more than half the effort. 5-Vmrvflyan-xbgdby does ALL the effort. Patient does none of the effort to complete the activity. Or, the assistance of 2 or more helpers is required for the patient to complete the activity. If activity was not attempted, code reason: 7-Patient Refused. 9-Not Applicable-not attempted and the patient did not perform the activity before the current illness, exacerbation or injury. 10-Not Attempted due to Environmental Limitations-(lack of equipment, weather restraints, etc.). 88-Not Attempted due to Medical Conditions or Safety Concerns. Bed Mobility: 6 Transfers (B,C,W/C): 6 Gait: 6 (knee scooter NWB left foot) Indoor Mobility (Ambulation): Independent Prior Devices Use: Other-see list below Prior Device Use: knee scooter PT Evaluation-Current Subjective Patient agrees to PT. Objective Patient Orientation: Normal For Age ROM/Strength ROM Lower Extremities bilateral LE WFL Strength Lower Extremities 4-/5 grossly bilateral LE Integumentary/Posture Integumentary refer to nursing notes Bowel Incontinence: No Bladder Incontinence: No Posture WFL Neuromuscular (Tone, Coordination, Reflexes) grossly intact Sensory Vision: Functional Hearing: Functional Sensation Right Lower Extremit: Impaired Sensation Left Lower Extremity: Impaired Transfers Sit to Lying (QC): 5 Lying to Sitting/Side of Bed(Q: 5 Sit to Stand (QC): 5 Chair/Cma-vq-Ujnil Xfer(QC): 5 difficulty with maintaining NWB left foot with FWW for transfer Gait Does the Patient Walk?: No and Walking Goal IS indicated (with knee scooter NWB left foot) Balance Sitting Static: Normal Sitting Dynamic: Normal Standing Static: Fair Standing Dynamic: Fair Assessment/Needs 60 y.o. male, will be seen short term by skilled PT to address functional strength and mobility to ensure safe return to home at maximum LOF. 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 Goals Time Frame: Oct 02, 2020 Roll Left & Right (QC): 6 Sit to Lying (QC): 6 Lying-Sitting on Side/Bed(QC): 6 Sit to Stand (QC): 6 Chair/Woo-gz-Pprmg Xfer(QC): 6 Toilet Transfer (QC): 6 Car Transfer (QC): 6 Does the Patient Walk: Yes Walk 10 feet (QC): 6 Walk 50ft with 2 Turns (QC): 6 (knee scooter NWB left) Walk 150 ft (QC): 6 (knee scooter NWB left foot) PT Plan Problem List Problem List: Activity Tolerance, Functional Strength, Safety, Balance, Gait, Transfer Treatment/Plan Treatment Plan: Continue Plan of Care Treatment Plan: Bed Mobility, Education, Functional Activity Amy, Functional Strength, Gait, Safety, Therapeutic Exercise, Transfers Treatment Duration: Oct 02, 2020 Frequency: 6 times per week Estimated Hrs Per Day: .25 hour per day Patient and/or Family Agrees t: Yes Time/GCodes Time In: 1125 Time Out: 1145 Total Billed Treatment Time: 20 Total Billed Treatment 1 visit EVModC 20 min MORAIMA PETTY PT Sep 20, 2020 12:13
[2020-09-20] MEDS ORDERED: FLDR.1T PO (13:06)
[2020-09-20] MEDS ORDERED: CARV6.25 PO (13:06)
[2020-09-20] MEDS ORDERED: FINA5TAB6 PO (13:06)
[2020-09-20] MEDS ORDERED: PRD20T PO (13:08)
[2020-09-20] MEDS ORDERED: DOXY100C2 PO (13:08)
--- NOTE | 2020-09-20 13:10 | NUR ---
SPOKE WITH THE PT, WENT THRU THE EXT MED HISTORY AND CALLED [facility] TO COMPLETE THE MED REC ON 09-17-2020 [facility] FILLED PREDNISONE 20MG #10 AND DOXYCYCLINE 100MG #20 AND PT WAS TAKING AFTER HE GOT TESTED FOR COVID AND BEFORE HE GOT HIS RESULTS BACK WHEN THE PT DISCHARGED ON 09-12-2020 BRILANTA 90MG AND LISINOPRIL 5MG WERE BOTH SENT TO [facility]- HOWEVER THE PT NEVER PICKED UP EITHER MEDICATION OTC MEDS: NONE
--- NOTE | 2020-09-20 15:03 | NUR ---
Pt is Taoism and kind of sleepy. Declined sacraments. Bunch Trimmer Mold offered blessing.
--- NOTE | 2020-09-20 15:35 | NUR ---
"RD ASSESSMENT PMHx: CAD; hypercholesterolemia; HTN; DM; amputations; PT INTERACTION: Pt was awake and pleasant during nutrition assessment. Pt states current appetite is alright. Note avg PO intake 88% x2meal, per chart review. Pt states trying to follow a low-CHO diet at home, and has no issues with chewing/swallowing food. Pt states no recent issues with nausea, vomiting, constipation, or diarrhea, and that his last BM was 09/19. Note pt not currently on bowel regimen per chart review. Pt states no recent wt changes. Note recent 25# wt gain x6mon, per chart review. Pt states current DM management is pretty good. Note unable to determine recent HbA1c, per chart review. Note pt has hx of bilateral amputations of his toes, per chart review. ABNORMAL NUTRITION-RELATED LAB VALUES LOW: Ca 7.9; HDL 29; HIGH: BUN 19; glu 209; TG 248 Est. kcal needs: 6756-8203 kcal | 15-18 kcal/kg Est. Pro needs: 90-123 g Pro | 0.8-1.0 g Pro/kg PES STATEMENT: Given current PO intake, no nutrition diagnosis at this time (NO-1.1) INTERVENTION: Continue with current diet order of 2000mg Na diet. Pt may benefit from consistent CHO restriction if blood glucose levels become elevated. Offered diet education on DM management, but pt declined at this time. Will attempt to offer again prior to discharge. Will continue to follow and reassess as pt needs, intake, and status change. Nam Pena, MS ROBY LD"
--- NOTE | 2020-09-20 16:20 | NUR ---
PT C/O A "DIFFERENT TYPE" OF CHEST PAIN. EKG AND VS OBTAINED. DR MARIA NOTIFIED. NEW ORDERS RECEIVED FOR NITRO.
[2020-09-20] MEDS ORDERED: NITROGLYCERIN 0.4 MG SL TABS BTL 25'S SL PRN (16:45)
[2020-09-20] MEDS: ACETAMINOPHEN 325 MG TABLET PO PRN (18:10)
[2020-09-20] MEDS: clonazePAM 1 MG (KlonoPIN) TAB PO SCH (20:06)
[2020-09-20] MEDS: CARVEDILOL 6.25 MG (COREG) TAB PO SCH (20:06)
[2020-09-20] MEDS: RANOLAZINE ER 500 MG TAB (RANEXA) PO SCH (20:07)
[2020-09-20] MEDS ORDERED: ACETAMINOPHEN 500 MG TAB (TYLENOL) PO SCH (21:00)
[2020-09-20] MEDS ORDERED: FINASTERIDE (PROSCAR) 5 MG TAB PO SCH (21:00)
[2020-09-21 04:28] LABS: HEMOGLOBIN 7.9 g/dL (13.3-17.7); MEAN PLATELET VOLUME 10.2 fL (9.0-12.2); WHITE BLOOD COUNT 6.9 10^3/uL (4.3-11.0)
[2020-09-21 04:40] LABS: CHLORIDE 106 MMOL/L (98-107); SODIUM 140 MMOL/L (135-145)
[2020-09-21 04:41] LABS: CALCIUM 7.1 MG/DL (8.5-10.1)
[2020-09-21 04:42] LABS: GLUCOSE 191 MG/DL (70-105)
[2020-09-21 04:43] LABS: CARBON DIOXIDE 25 MMOL/L (21-32)
[2020-09-21 04:45] LABS: PHOSPHORUS 2.5 MG/DL (2.3-4.7)
[2020-09-21 04:46] LABS: CREATININE SERUM 0.83 MG/DL (0.60-1.30); GFR ESTIMATED > 60
[2020-09-21 04:47] LABS: BUN/CREATININE RATIO 19
[2020-09-21 04:48] LABS: MAGNESIUM 1.8 MG/DL (1.6-2.4)
[2020-09-21] MEDS: NS IV 1000 ML 1,000 ML IV SCH ×3 (06:00→15:25)
[2020-09-21] MEDS: inSUlin ASPART (NovoLOG) 1 UNIT/0.01 ML (CHARGE PER UNIT) SC SCH ×2 (06:28→12:31)
[2020-09-21] MEDS ORDERED: NON-FORMULARY MEDICATION 1 EA EA (Insulin Aspart (Novolog Flexpen) 10 UNITS) SC SCH (07:00)
[2020-09-21] MEDS: ASPIRIN E.C. 81 MG (ECOTRIN) TAB PO SCH (08:55)
[2020-09-21] MEDS: RANOLAZINE ER 500 MG TAB (RANEXA) PO SCH (08:55)
[2020-09-21] MEDS: DULoxetine 30 MG (CYMBALTA) CAP PO SCH (08:55)
[2020-09-21] MEDS: CLOPIDOGREL 75 MG (PLAVIX) TABLET PO SCH (08:55)
[2020-09-21] MEDS: FERROUS SULF 325 MG (IRON) TAB PO SCH (08:55)
[2020-09-21] MEDS: CARVEDILOL 6.25 MG (COREG) TAB PO SCH (08:55)
[2020-09-21] MEDS: PANTOPRAZOLE 40 MG (PROTONIX) TAB PO SCH (08:55)
[2020-09-21] MEDS ORDERED: NON-FORMULARY MEDICATION 1 EA EA (Insulin Degludec (Tresiba Flextouch U-200) 50 UNITS) SC SCH (09:00)
[2020-09-21] MEDS ORDERED: FERR325T18 PO (09:26)
[2020-09-21] MEDS ORDERED: NITR0.4T39 SL (09:26)
[2020-09-21] MEDS ORDERED: PANT40TA52 PO (09:26)
[2020-09-21] MEDS ORDERED: DULO30CA3 PO (09:26)
--- NOTE | 2020-09-21 09:28 | Discharge Inst-Simple/Standard ---
Discharge Inst-Standard Reconcile Patient Problems Problems Reviewed?: Yes Discharge Medications New, Converted or Re-Newed RX: Transmitted to Pharmacy Patient Instructions/Follow Up Plan of Care/Instructions/FU: 1 WK WITH [facility] KEEP APPT WITH CONFIGURATION TECHNICIAN ON 09/23/2020 Activity as Tolerated: Yes Discharge Diet: ADA Diet Return to The Hospital For: ANY CONCERN FROM RECURRENT BLEEDING, CHEST PAIN, OR OTHER LIFE THREATENING INJURY OR ILLNESS Medication List: Active Scripts Active Pantoprazole Sodium 40 Mg Tablet.dr 40 Mg PO DAILY Cymbalta (Duloxetine HCl) 30 Mg Capsule.dr 30 Mg PO BID Ferrous Sulfate 325 Mg Tablet 325 Mg PO BID WITH MEALS Nitroglycerin 0.4 Mg Tab.subl 0.4 Mg SL UD PRN Reported Doxycycline Hyclate 100 Mg Capsule 100 Mg PO BID FILLED 09-17-2020 #24/08 DAY SUPPLY Prednisone 20 Mg Tab 40 Mg PO DAILY FILLED 09-17-2020 #08/09 DAY SUPPLY TAKES 2 (20MG) TABS Coreg (Carvedilol) 6.25 Mg Tablet 6.25 Mg PO BID Fludrocortisone Acetate 0.1 Mg Tab 0.1 Mg PO BID Finasteride 5 Mg Tablet 5 Mg PO HS Ranolazine ER (Ranolazine) 500 Mg Tab.er.12h 500 Mg PO BID Plavix (Clopidogrel Bisulfate) 75 Mg Tablet 75 Mg PO DAILY Aspirin 81 Mg Tab.chew 81 Mg PO DAILY Atorvastatin Calcium 80 Mg Tablet 80 Mg PO DAILY Tylenol Extra Strength (Acetaminophen) 500 Mg Tablet 1,000 Mg PO HS TAKES 2 (500MG) TABLETS Tresiba Flextouch U-200 (Insulin Degludec) 200 Unit/1 Ml Insuln.pen 50 Units SC DAILY Novolog Flexpen (Insulin Aspart) 300 Units/3 Ml Solution 10 Units SC TIDAC Clonazepam 1 Mg Tablet 2 Mg PO HS TAKES 2 (1 MG) TABLETS Lab results: Laboratory Tests Test 09/20/20 09:40 09/20/20 11:44 09/20/20 14:27 09/21/20 03:50 Range/Units Lab Scanned Report Transfusion Reaction Form Transfusion Reaction Form [id number] Glucometer 265 H 70-110 MG/DL White Blood Count 6.9 4.3-11.0 10^3/uL Red Blood Count 2.61 L 4.30-5.52 10^6/uL Hemoglobin 7.9 L 13.3-17.7 g/dL Hematocrit 24 L 40-54 % Mean Corpuscular Volume 92 80-99 fL Mean Corpuscular Hemoglobin 30 25-34 pg Mean Corpuscular Hemoglobin Concent 33 32-36 g/dL Red Cell Distribution Width 15.1 H 10.0-14.5 % Platelet Count 197 130-400 10^3/uL Mean Platelet Volume 10.2 9.0-12.2 fL Sodium Level 140 135-145 MMOL/L Potassium Level 4.0 3.6-5.0 MMOL/L Chloride Level 106 98-107 MMOL/L Carbon Dioxide Level 25 21-32 MMOL/L Anion Gap 9 5-14 MMOL/L Blood Urea Nitrogen 16 7-18 MG/DL Creatinine 0.83 0.60-1.30 MG/DL Estimat Glomerular Filtration Rate > 60 BUN/Creatinine Ratio 19 Glucose Level 191 H 70-105 MG/DL Calcium Level 7.1 L 8.5-10.1 MG/DL Phosphorus Level 2.5 2.3-4.7 MG/DL Magnesium Level 1.8 1.6-2.4 MG/DL My orders: Orders - ROSA MARIA PRADO MD Consult Cardiology (09/20/20 09:54) Transfer - Bed/Room/Location (09/20/20 11:41) Patient Visit (09/20/20 ) Pt Eval Moderate Complexity (09/20/20 ) Ekg Tracing (09/20/20 16:26) Acetaminophen Tablet (Tylenol Tablet) (09/20/20 21:00) Atorvastatin Tablet (Lipitor Tablet) (09/21/20 09:00) Carvedilol Tablet (Coreg Tablet) (09/20/20 21:00) Finasteride Tablet (Proscar Tablet) (09/20/20 21:00) (Nf) Insulin Aspart (Novolog Flexpen) (09/21/20 07:00) (Nf) Insulin Degludec (Tresiba Flextouch (09/21/20 09:00) Insulin Aspart (Novolog) (Novolog (Charg (09/21/20 07:00) Insulin Determir (Per Unit) (Levemir (Pe (09/21/20 09:00) Magnesium (09/21/20 05:00) Phosphorus (09/21/20 05:00) Attending Discharge Inpt/Inobs (09/21/20 09:18) ROSA MARIA PRADO MD Sep 21, 2020 09:28
--- NOTE | 2020-09-21 09:30 | Discharge Summary ---
Diagnosis/Chief Complaint Date of Admission Sep 20, 2020 at 08:59 Date of Discharge Discharge Date: Sep 21, 2020 Discharge Time: 1030 Reason Hospital Visit PT IS A 60 Y/O MALE WHO IS WELL KNOWN TO ME FROM CLINIC. 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 THE POLICE FOUND THAT HE HAD ABOUT A LITER OF BLOOD IN THE FLOORBOARD OF HIS VEHICLE AND HE WAS EMERGENCY TRANSPORTED TO THE EMERGENCY DEPARTMENT. HE WAS FOUND TO HAVE HAD AN ACUTE MYOCARDIAL INFARCTION AND THEN HE WAS TAKEN EMERGENTLY TO [facility] AND WHERE HE WAS FOUND TO HAVE A CLOT IN THE STENT THAT WAS JUST PLACED. THE [employer] MACHINE OPERATOR WAS ABLE TO REMOVE THE CLOT AND PT WAS SENT UP TO THE ICU. Discharge Summary Discharge Physical Examination Allergies: Coded Allergies: linezolid (Verified Allergy, Unknown, 06/17/19) Vitals & I&Os Vital Signs Date Time Temp Pulse Resp B/P (MAP) Pulse Ox O2 Delivery O2 Flow Rate FiO2 09/21/20 07:39 36.6 79 16 144/84 97 Room Air 09/19/20 18:00 2.00 Hospital Course Pending Labs Laboratory Tests 09/21/20 03:50: White Blood Count 6.9, Red Blood Count 2.61, Hemoglobin 7.9, Hematocrit 24, Mean Corpuscular Volume 92, Mean Corpuscular Hemoglobin 30, Mean Corpuscular Hemoglobin Concent 33, Red Cell Distribution Width 15.1, Platelet Count 197, Mean Platelet Volume 10.2, Sodium Level 140, Potassium Level 4.0, Chloride Level 106, Carbon Dioxide Level 25, Anion Gap 9, Blood Urea Nitrogen 16, Creatinine 0.83, Estimat Glomerular Filtration Rate > 60, BUN/Creatinine Ratio 19, Glucose Level 191, Calcium Level 7.1, Phosphorus Level 2.5, Magnesium Level 1.8 Discharge Instructions to patient/family Please see electronic discharge instructions given to patient. Discharge Medications Reviewed and agree with Discharge Medication list on patient's Discharge Instruction sheet Clinical Quality Measures DVT/VTE Risk/Contraindication: Risk Factor Score Per Nursin RFS Level Per Nursing on Admit: 4+=Very High ROSA MARIA PRADO MD Sep 21, 2020 09:30
--- NOTE | 2020-09-21 09:30 | Progress Note - Surgery ---
ONESIMO ROJAS MED STUDENT 09/21/20 0930: Subjective Date Seen by a Provider: Sep 21, 2020 Time Seen by a Provider: 07:05 Subjective/Events-last exam Pt had some chest pain last night that was addressed by Dr. Patel, but denies any other complaints. Bandage is intact on left foot and has some dried blood on the tip. Hgb today is 7.9, yesterday was 8.1. Objective Exam Vital Signs Date Time Temp Pulse Resp B/P (MAP) Pulse Ox O2 Delivery O2 Flow Rate FiO2 09/21/20 07:39 36.6 79 16 144/84 97 Room Air 09/21/20 07:17 78 09/21/20 03:56 37.0 80 16 127/77 100 Room Air 09/21/20 01:00 81 09/21/20 00:00 36.4 82 16 131/78 100 Room Air 09/20/20 21:00 Room Air 09/20/20 19:34 36.8 88 15 146/85 98 Room Air 09/20/20 19:02 90 09/20/20 16:20 36.8 83 16 154/93 99 Room Air 09/20/20 12:32 86 09/20/20 12:10 36.3 82 12 159/92 96 Room Air 09/20/20 11:00 85 13 151/83 97 Room Air 09/20/20 10:00 79 16 164/86 92 Room Air I & O 09/21/20 07:00 Intake Total 905 ml Output Total 900 ml Balance 5 ml Capillary Refill : Less Than 3 Seconds General Appearance: No Apparent Distress, WD/WN HEENT: PERRL/EOMI, Normal ENT Inspection Neck: Normal Inspection, Supple Respiratory: No Accessory Muscle Use, No Respiratory Distress, Other (left anterior chest wall tenderness) Cardiovascular: Regular Rate, Rhythm, No Edema Gastrointestinal: non tender, soft Extremity: No Pedal Edema, Other (left foot wrapped, some blood on bandage) Neurologic/Psychiatric: Alert, Oriented x3, No Motor/Sensory Deficits, Normal Mood/Affect Skin: Normal Color, Warm/Dry Lymphatic: No Adenopathy Results Lab Laboratory Tests 09/20/20 09:40: Lab Scanned Report Transfusion Reaction Form 09/20/20 11:44: Glucometer 265H 09/20/20 14:27: Lab Scanned Report Transfusion Reaction Form 09/21/20 03:50: White Blood Count 6.9, Red Blood Count 2.61L, Hemoglobin 7.9L, Hematocrit 24L, Mean Corpuscular Volume 92, Mean Corpuscular Hemoglobin 30, Mean Corpuscular Hemoglobin Concent 33, Red Cell Distribution Width 15.1H, Platelet Count 197, Mean Platelet Volume 10.2, Sodium Level 140, Potassium Level 4.0, Chloride Level 106, Carbon Dioxide Level 25, Anion Gap 9, Blood Urea Nitrogen 16, Creatinine 0.83, Estimat Glomerular Filtration Rate > 60, BUN/Creatinine Ratio 19, Glucose Level 191H, Calcium Level 7.1L, Phosphorus Level 2.5, Magnesium Level 1.8 Microbiology 09/19/20 MRSA Screen - Final, Complete MRSA not isolated Assessment/Plan Assessment/Plan Assessment/Plan anemia requiring 3 blood transfusions STEMI T2DM bilateral forefoot amputations wound care no surgical intervention at this time continue to monitor Clinical Quality Measures DVT/VTE Risk/Contraindication: Risk Factor Score Per Nursin RFS Level Per Nursing on Admit: 4+=Very High ADRIANO GREWAL DO 09/21/20 1535: Subjective Subjective/Events-last exam Patient with no complaints at this time. His left foot has a little bit of dried blood on it but he does not have any complaints with the left foot. No active bleeding. Denies any nausea vomiting fever sweats chills shortness of breath. Patient planning on going home today. Objective Exam General Appearance: No Apparent Distress, WD/WN, Chronically ill HEENT: PERRL/EOMI, Normal ENT Inspection Neck: Normal Inspection, Supple Respiratory: Chest Non Tender, No Accessory Muscle Use, No Respiratory Distress Cardiovascular: Regular Rate, Rhythm, No Edema Gastrointestinal: non tender, soft Extremity: Non Tender, Other (left foot slightly macerated skin at incision site. No active bleeding. No signs of infection.) Neurologic/Psychiatric: Alert, Oriented x3, No Motor/Sensory Deficits, Normal Mood/Affect Skin: Normal Color, Warm/Dry, Other (Changes to left foot as noted as above) Lymphatic: No Adenopathy Assessment/Plan Assessment/Plan Assessment/Plan recent left forefoot amputatino anemia requiring 3 blood transfusions STEMI T2DM hx bilateral forefoot amputations wound care no surgical intervention at this time patient okay from surgical standpoint for discharge. 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 I reviewed and verified all information documented by the medical student and made modifications to such information, when appropriate. I personally performed the physical exam and medical decision making. Adriano Grewal, Sep 21, 2020,15:28 ONESIMO ROJAS MED STUDENT Sep 21, 2020 09:30 ADRIANO GREWAL DO Sep 21, 2020 15:35
--- NOTE | 2020-09-21 13:59 | Cardiology Progress Note ---
Cardiology SOAP Progress Note Subjective: No chest pain. Objective: I&O/Vital Signs 09/21/20 09/21/20 09/21/20 09/21/20 03:56 07:17 07:39 09:00 Temp 37.0 36.6 Pulse 80 78 79 Resp 16 16 B/P (MAP) 127/77 144/84 Pulse Ox 100 97 O2 Delivery Room Air Room Air Room Air 09/21/20 12:08 Temp 36.6 Pulse 84 Resp 16 B/P (MAP) 144/80 Pulse Ox 95 O2 Delivery Room Air 09/21/20 00:00 Intake Total 755 ml Balance 755 ml Weight (Pounds): 240 Weight (Ounces): 3.0 Weight (Calculated Kilograms): 108.001668 Constitutional: AAO x 3 Respiratory: chest is bilaterally symmetric, lungs clear to auscultation Cardiovascular: regular rate-rhythm, S1 and S2 Gastrointestional: soft, audible bowel sounds Extremities: pedal edema Neurologic/Psychiatric: no motor/sensory deficits, alert, normal mood/affect, oriented x 3 Results/Procedures: Labs Laboratory Tests 09/20/20 14:27: Lab Scanned Report Transfusion Reaction Form 09/21/20 03:50: White Blood Count 6.9, Red Blood Count 2.61L, Hemoglobin 7.9L, Hematocrit 24L, Mean Corpuscular Volume 92, Mean Corpuscular Hemoglobin 30, Mean Corpuscular Hemoglobin Concent 33, Red Cell Distribution Width 15.1H, Platelet Count 197, Mean Platelet Volume 10.2, Sodium Level 140, Potassium Level 4.0, Chloride Level 106, Carbon Dioxide Level 25, Anion Gap 9, Blood Urea Nitrogen 16, Creatinine 0.83, Estimat Glomerular Filtration Rate > 60, BUN/Creatinine Ratio 19, Glucose Level 191H, Calcium Level 7.1L, Phosphorus Level 2.5, Magnesium Level 1.8 Microbiology 09/19/20 MRSA Screen - Final, Complete MRSA not isolated A/P: Assessment/Dx: Acute ST elevation myocardial infarction Congestive heart failure Hypotensive shock Anemia Plan: Acute ST elevation myocardial infarction status post recent ST elevation myocardial infarction in the inferior wall on September 10, 2020 with deployment of resolute 3 x 22 stent expanded to 3.5 mm with excellent results. Patient has been compliant with his medication, chest pain started while he was in the emergency room, initial EKG did not have any acute changes. Emergency cardiac catheterization was done showing occlusion of the stent in the distal right coronary artery, successful thrombectomy then balloon angioplasty with excellent results Coronary artery disease, history of multiple intervention, last cardiac catheterization was done on September 10, 2020 showing patent stent in the mid LAD, patent stent in the obtuse marginal branch, severe stenosis at the ostial first obtuse marginal branch/ramus intermedius which was too small for intervention and severe stenosis in the right coronary artery was successful stenting. Cardiac catheterization done on September 19, 2020 showing thrombus with total occlusion of the stent in the distal right coronary artery, successful thrombectomy followed by balloon angioplasty to the distal right coronary artery using 3.5 x 15 mm balloon with excellent results. Recurrent chest pain, still having active chest pain, I will restart Ranexa and evaluate tolerance and response Significant bleeding from his leg, multiple episodes followed by severe hypotension and syncope, patient is maintained on aspirin and Plavix, I will evaluate Plavix metabolism Congestive heart failure, chronic left ventricular systolic dysfunction with ejection fraction 45-50 percent, ejection fraction during cardiac catheterization showed deterioration. I will repeat 2-D echo Severe anemia secondary to acute blood loss from his wound. Received 3 units of packed RBCs and IV fluid. Continue to monitor H&H, I started him on iron supplement Active bleeding from leg wound, status post 2 layers of sutures done by Dr. Petty which has stopped the bleeding, had mild oozing today, seen and managed by Dr. Grewal Hypotensive shock secondary to hypovolemia. Blood pressure is better today. Hyperlipidemia, restart statin Peripheral arterial disease, amputation as described above Diabetes mellitus Extensive peripheral arterial disease Depression, managed by primary care physician Follow-up with Dr. Patel in one to 2 weeks. Thank you for your consultation. Please call me if you have any questions. Casper Brennan MD, FACP, FACC, FSCAI, FHRS, CCDS Interventional Cardiology Cardiac Electrophysiology Vascular Medicine and Endovascular Interventions Chris BRENNAN MD Sep 21, 2020 13:59
== END 2020-09-21 17:10 | disposition home or self-care (01) | DRG 515 ==
LOC: EDUNIT# 10:52 → ER 10:53 → CATH 12:10 → ICU 14:00 → CATH 09-20 08:59 → ICU 09-20 08:59 → CSD 09-20 11:40
PROVIDERS: ADMIT Family Medicine; ATTEND Family Medicine
PROC: 02703ZZ Dilation of Coronary Artery, One Artery, Percutaneous Approach (ICD-10-PCS; principal; 2020-09-19)
PROC: 0Y3N0ZZ Control Bleeding in Left Foot, Open Approach (ICD-10-PCS; 2020-09-19)
PROC: 02C03ZZ Extirpation of Matter from Coronary Artery, One Artery, Percutaneous Approach (ICD-10-PCS; 2020-09-19)
PROC: 4A023N7 Measurement of Cardiac Sampling and Pressure, Left Heart, Percutaneous Approach (ICD-10-PCS; 2020-09-19)
PROC: B2111ZZ Fluoroscopy of Multiple Coronary Arteries using Low Osmolar Contrast (ICD-10-PCS; 2020-09-19)
PROC: B2151ZZ Fluoroscopy of Left Heart using Low Osmolar Contrast (ICD-10-PCS; 2020-09-19)
DX: T87.89 Other complications of amputation stump (principal); R57.1 Hypovolemic shock; I21.19 ST elevation (STEMI) myocardial infarction involving other coronary artery of inferior wall; I22.9 Subsequent ST elevation (STEMI) myocardial infarction of unspecified site; I97.620 Postprocedural hemorrhage of a circulatory system organ or structure following other procedure; T82.867A Thrombosis due to cardiac prosthetic devices, implants and grafts, initial encounter; T82.855A Stenosis of coronary artery stent, initial encounter; D62 Acute posthemorrhagic anemia; I50.22 Chronic systolic (congestive) heart failure; I42.9 Cardiomyopathy, unspecified; I11.0 Hypertensive heart disease with heart failure; E78.5 Hyperlipidemia, unspecified; E11.42 Type 2 diabetes mellitus with diabetic polyneuropathy; E78.00 Pure hypercholesterolemia, unspecified; I25.10 Atherosclerotic heart disease of native coronary artery without angina pectoris; M54.9 Dorsalgia, unspecified; E66.9 Obesity, unspecified; F41.9 Anxiety disorder, unspecified; F32.9 Major depressive disorder, single episode, unspecified; Z89.432 Acquired absence of left foot; Z79.4 Long term (current) use of insulin; Z95.5 Presence of coronary angioplasty implant and graft; Z79.02 Long term (current) use of antithrombotics/antiplatelets; Z79.82 Long term (current) use of aspirin; Z86.73 Personal history of transient ischemic attack (TIA), and cerebral infarction without residual deficits; Z68.33 Body mass index [BMI] 33.0-33.9, adult; Z98.1 Arthrodesis status
CPT/HCPCS: 36415; 36430; 70450; 71045; 80048; 80053; 80061; 81225; 82962; 83735; 83874; 83880; 84100; 84484; 85014; 85018; 85025; 85027; 85610; 85730; 86850; 86900; 86901; 86920; 87081; 93041; 93306; 93458; 99291

== ENCOUNTER → 2020-09-28 | Outpatient (CLI) | payer OTHER ==
[~2020-09-28] MED LIST changes: +ALBU2.5V4 NEB; +CARV6.25 PO; +FERR325T18 PO; +FINA5TAB6 PO; +FLDR.1T PO; +NITR0.4T42 SL; +PRD20T PO
== END ==
LOC: LABNPT 09:00
PROVIDERS: ATTEND Family Medicine
DX: R05 Cough (principal); R06.00 Dyspnea, unspecified; Z20.828 Contact with and (suspected) exposure to other viral communicable diseases
CPT/HCPCS: 87635

== ENCOUNTER 2020-10-01 09:48 | Inpatient (IN) | payer OTHER ==
[~2020-10-01] VITALS: Ht 193 cm; Wt 117.9 kg
[~2020-10-01 09:48] MED LIST changes: -ALBU2.5V4 NEB; -NITR0.4T42 SL
[2020-10-01] MEDS ORDERED: NITROGLYCERIN 0.4 MG SL TABS BTL 25'S SL PRN (10:30)
[2020-10-01] MEDS ORDERED: ASPIRIN 81 MG CHEW (CHILDREN'S ASA) PO ONE (10:30)
[2020-10-01 10:31] LABS: BASOPHILS % (AUTO) 0 % (0-10); EOSINOPHILS # (AUTO) 0.1 10^3/uL (0.0-0.3); EOSINOPHILS % (AUTO) 2 % (0-10); HEMATOCRIT 32 % (40-54); HEMOGLOBIN 9.7 g/dL (13.3-17.7); LYMPHOCYTES # (AUTO) 1.6 10^3/uL (1.0-4.0); LYMPHOCYTES % (AUTO) 26 % (12-44); MEAN CORPUSCULAR HEMOGLOBIN 29 pg (25-34); MEAN CORPUSCULAR HGB CONC 30 g/dL (32-36); MEAN CORPUSCULAR VOLUME 96 fL (80-99); MEAN PLATELET VOLUME 9.8 fL (9.0-12.2); MONOCYTES # (AUTO) 0.5 10^3/uL (0.0-1.0); MONOCYTES % (AUTO) 8 % (0-12); NEUTROPHILS % (AUTO) 64 % (42-75); PLATELET COUNT 211 10^3/uL (130-400); WHITE BLOOD COUNT 6.3 10^3/uL (4.3-11.0)
[2020-10-01 10:43] LABS: PROTHROMBIN TIME PATIENT 13.2 SEC (12.2-14.7)
[2020-10-01 10:47] LABS: ALBUMIN 3.2 GM/DL (3.2-4.5); CHLORIDE 104 MMOL/L (98-107); POTASSIUM 3.9 MMOL/L (3.6-5.0); SODIUM 140 MMOL/L (135-145)
[2020-10-01 10:48] LABS: CALCIUM 7.7 MG/DL (8.5-10.1)
[2020-10-01 10:49] LABS: GLUCOSE 162 MG/DL (70-105)
[2020-10-01 10:50] LABS: TOTAL PROTEIN 6.3 GM/DL (6.4-8.2)
[2020-10-01 10:51] LABS: BILIRUBIN,TOTAL 0.7 MG/DL (0.1-1.0); CARBON DIOXIDE 27 MMOL/L (21-32)
[2020-10-01 10:53] LABS: ALKALINE PHOSPHATASE 105 U/L (40-136); CREATININE SERUM 1.09 MG/DL (0.60-1.30); GFR ESTIMATED > 60
[2020-10-01 10:54] LABS: BUN/CREATININE RATIO 14
[2020-10-01 10:56] LABS: ALANINE AMINOTRANSFERASE 13 U/L (0-55); MAGNESIUM 1.7 MG/DL (1.6-2.4)
--- NOTE | 2020-10-01 11:11 | Diagnostic Imaging Report ---
INDICATION: Chest pain Single AP view of the chest obtained with comparison made study of 09/19/2020. There has been further increase in right perihilar airspace disease. There is also blunting of the right costophrenic sulcus. Heart size and pulmonary vascularity are at the upper limits of normal. Left lung appears clear. IMPRESSION: Increasing right perihilar density which could be due to edema or pneumonitis. Clinical correlation would be useful. Dictated by: Dictated on workstation # [id number]
--- NOTE | 2020-10-01 12:02 | ED General ---
General Chief Complaint: Respiratory Problems Stated Complaint: FACE SWOLLEN Nursing Triage Note: PT AMB TO ROOM 6 W SCOOTER, PT CO OF FACIAL SWELLING, AND ALL OVER BODY SWELLING, STATES HAS GAINED APPROX 20+#, CO OF FACIAL TIGHTNESS RATES DISCOMFORT 3/10. SAT 85% ON RA, 02 APPLIED SAT UP TO 95%. PT HAS DRESSING ON L FOOT AMPUTATION. PT HAS RECENTLY BEEN IN HOSP FOR PR COUPLE WEEKS AGO Nursing Sepsis Screen: No Definite Risk Source of Information: Patient Exam Limitations: No Limitations History of Present Illness Date Seen by Provider: Oct 01, 2020 Time Seen by Provider: 10:21 Initial Comments Patient presents ER by private conveyance from home with chief complaint he is having some fullness and tenderness around both jaws fluid swelling and pressure. He feels like he has increased swelling around his legs and hands as well. He has had 2 heart attacks in the last month and has also had to have blood transfusions for acute blood loss anemia related to surgical wound of his foot. Patient is not on diuretics and states he has a history of heart failure. He is not having any chest pain but he is having some mild shortness of air. No cough. No fevers or chills. He recently had a negative COVID test 3 days ago. He tried to go to Dr. Ha's office and they directed him to come to the ER. No difficulty urinating. No nausea or vomiting. Patient had a STEMI September 10 with a stent placed and again on September 19 with thrombus and total occlusion of the stent in the distal right coronary artery followed by thrombectomy and balloon angioplasty. He has a history of congestive heart failure with an EF of 45-50%. Primary cardiology Dr. Patel. Peripheral arterial disease, diabetes, hyperlipidemia. Echocardiogram from September 20, 2020 shows an EF of 35-40% and grade 2 diastolic dysfunction. Allergies and Home Medications Allergies Coded Allergies: linezolid (Verified Allergy, Unknown, 06/17/19) Home Medications Acetaminophen 500 Mg Tablet, 1,000 MG PO HS, (Reported) TAKES 2 (500MG) TABLETS Aspirin 81 Mg Tab.chew, 81 MG PO DAILY, (Reported) Atorvastatin Calcium 80 Mg Tablet, 80 MG PO DAILY, (Reported) Carvedilol 6.25 Mg Tablet, 6.25 MG PO BID, (Reported) Clonazepam 1 Mg Tablet, 2 MG PO HS, (Reported) TAKES 2 (1 MG) TABLETS Clopidogrel Bisulfate 75 Mg Tablet, 75 MG PO DAILY, (Reported) Doxycycline Hyclate 100 Mg Capsule, 100 MG PO BID, (Reported) FILLED 09-17-2020 #20/10 DAY SUPPLY Duloxetine HCl 30 Mg Capsule.dr, 30 MG PO BID Prescribed by: ROSA MAIRA HA on 09/21/20925 Ferrous Sulfate 325 Mg Tablet, 325 MG PO BID WITH MEALS Prescribed by: ROSA MARIA HA on 09/21/20925 Finasteride 5 Mg Tablet, 5 MG PO HS, (Reported) Insulin Aspart 300 Units/3 Ml Solution, 10 UNITS SC TIDAC, (Reported) Insulin Degludec 200 Unit/1 Ml Insuln.pen, 50 UNITS SC DAILY, (Reported) Nitroglycerin 0.4 Mg Tab.subl, 0.4 MG SL UD PRN for CHEST PAIN Prescribed by: ROSA MARIA HA on 09/21/20925 Pantoprazole Sodium 40 Mg Tablet.dr, 40 MG PO DAILY Prescribed by: ROSA MARIA HA on 09/21/20925 Ranolazine 500 Mg Tab.er.12h, 500 MG PO BID, (Reported) Patient Home Medication List Home Medication List Reviewed: Yes Review of Systems Review of Systems Constitutional: No chills, No fever EENTM: No hearing loss, No ear pain Respiratory: No cough Cardiovascular: No chest pain; Hx of Intervention; No palpitations; vascular heart diseas Gastrointestinal: No abdominal pain, No constipation, No diarrhea Genitourinary: No discharge, No dysuria Musculoskeletal: No back pain, No joint pain Skin: No pruritus, No rash Psychiatric/Neurological: Denies Headache, Denies Numbness All Other Systems Reviewed Negative Unless Noted: Yes Past Xjzxxwu-Yffdci-Zijenm Hx Patient Social History Alcohol Use: Denies Use Recreational Drug Use: No Smoking Status: Never a Smoker 2nd Hand Smoke Exposure: No Recent Foreign Travel: No Contact w/Someone Who Travel: No Recent Infectious Disease Expo: No Recent Hopitalizations: Yes (Aug FOOT PARTIAL LEFT FOOT AMPUTATION) Physical Abuse: No Sexual Abuse: No Immunizations Up To Date Tetanus Booster (TDap): Unknown PED Vaccines UTD: No Date of Pneumonia Vaccine: Jan 02, 2011 Date of Influenza Vaccine: Aug 05, 2020 Seasonal Allergies Seasonal Allergies: No Past Medical History Surgeries: Yes (ACL REPAIR;WRIST SURGERY;CARDIAC CATH--STENTS;ALL TOES AMPUTATED; ) Abdominal, Amputation, Appendectomy, Cardiac, Coronary Stent, Gallbladder, Or thopedic, Tonsillectomy Respiratory: No Currently Using CPAP: No Currently Using BIPAP: No Cardiac: Yes (CARDIAC CATHS--STENTS X 3-[facility], LAC, RCA) Cardiomyopathy, Coronary Artery Disease, Heart Attack, High Cholesterol, Hypertension Neurological: Yes Neuropathy, Stroke Reproductive Disorders: No Sexually Transmitted Disease: No HIV/AIDS: No Genitourinary: Yes Kidney Stones Gastrointestinal: Yes Abdominal Hernia Musculoskeletal: Yes (OSTEOMYELITIS WITH ALL TOES AMPUTATED; BACK FUSION X 3) Degenerate Disk Disease, Arthritis, Chronic Back Pain Endocrine: Yes Diabetes, Insulin dep HEENT: Yes (R EYE BLOOD CLOT/PARTIAL BLINDNESS) Loss of Vision: Denies Hearing Impairment: Denies Cancer: No Psychosocial: Yes Anxiety, Depression Integumentary: Yes (FOOT ULCERS/OSTEOMYELITIS; MULTIPLE SURGICAL WOUND INFECTIONS) Blood Disorders: No Adverse Reaction/Blood Tranf: No Family Medical History Family history: Cardiovascular disease 19 FATHER Family history: Diabetes mellitus 19 MOTHER COPD, Diabetes, Hypertension PSH: -BILATERAL KNEE SCOPES, WITH OPEN LEFT ACL REPAIR -ALL TOES AMPUTATED BILATERAL FEET -MULTIPLE DEBRIDEMENTS OF FOOT ULCERS -MULTIPLE CARDIAC CATHS-- ANGIOPLASTIES AND STENTS X 3--STENT TO [facility] 05/2018, THEN TRANSFERED TO [facility] AND HAD STENT TO LAD ( COMPLICATED BY SEPSIS DUE TO LEFT FOOT ULCER AND WAS INTUBATED AND HAD PROLONGED HOSPITALIZATIONS/REHAB, AND HAD TOE AMPUTATION) ; HAD STENT TO RCA 01/02/19 -BACK SURGERY/FUSION X 3 -TONSILLECTOMY -APPENDECTOMY -CHOLECYSTECTOMY -HERNIA REPAIR WITH INFECTION/COMPLICATIONS -PORT RIGHT CHEST PLACED/REMOVED DUE TO INFECTION -MANY TEETH REMOVED Physical Exam Vital Signs Vital Signs - First Documented 10/01/20 10:10 Temp 36.3 Pulse 93 Resp 20 B/P (MAP) 165/88 (113) Pulse Ox 95 O2 Delivery Nasal Cannula O2 Flow Rate 2.00 Capillary Refill : Less Than 3 Seconds Height, Weight, BMI Height: 6'4.00" Weight: 240lbs. 3.0oz. 108.207574ez; 33.00 BMI Method:Stated General Appearance: Chronically ill, Mild Distress Eyes: Bilateral Eye Normal Inspection, Bilateral Eye PERRL, Bilateral Eye EOMI HEENT: PERRL/EOMI, Pharynx Normal, Moist Mucous Membranes Neck: Full Range of Motion, Normal Inspection Respiratory: Lungs Clear, No Accessory Muscle Use, No Respiratory Distress, Decreased Breath Sounds Cardiovascular: Regular Rate, Rhythm, No Murmur, Normal Peripheral Pulses Gastrointestinal: Normal Bowel Sounds, Non Tender, Soft Extremity: Normal Capillary Refill, Other (bilateral pedal edema trace edema in the hands and facial and abdominal edema.) Neurologic/Psychiatric: Alert, Oriented x3, Normal Mood/Affect Skin: Normal Color, Warm/Dry Progress/Results/Core Measures Suspected Sepsis Recent Fever Within 48 Hours: No Infection Criteria Present: None New/Unexplained Altered Menta: No Sepsis Screen: No Definite Risk SIRS Temperature: Pulse: 93 Respiratory Rate: 20 Laboratory Tests 10/01/20 10:25: White Blood Count 6.3 Blood Pressure 165 /88 Mean: 113 Laboratory Tests 10/01/20 10:25: Creatinine 1.09, INR Comment 1.0, Platelet Count 211, Total Bilirubin 0.7 Results/Orders Lab Results Laboratory Tests Test 10/01/20 10:25 10/01/20 12:30 Range/Units White Blood Count 6.3 4.3-11.0 10^3/uL Red Blood Count 3.35 L 4.30-5.52 10^6/uL Hemoglobin 9.7 L 13.3-17.7 g/dL Hematocrit 32 L 40-54 % Mean Corpuscular Volume 96 80-99 fL Mean Corpuscular Hemoglobin 29 25-34 pg Mean Corpuscular Hemoglobin Concent 30 L 32-36 g/dL Red Cell Distribution Width 15.6 H 10.0-14.5 % Platelet Count 211 130-400 10^3/uL Mean Platelet Volume 9.8 9.0-12.2 fL Immature Granulocyte % (Auto) 0 % Neutrophils (%) (Auto) 64 42-75 % Lymphocytes (%) (Auto) 26 12-44 % Monocytes (%) (Auto) 8 0-12 % Eosinophils (%) (Auto) 2 0-10 % Basophils (%) (Auto) 0 0-10 % Neutrophils # (Auto) 4.0 1.8-7.8 10^3/uL Lymphocytes # (Auto) 1.6 1.0-4.0 10^3/uL Monocytes # (Auto) 0.5 0.0-1.0 10^3/uL Eosinophils # (Auto) 0.1 0.0-0.3 10^3/uL Basophils # (Auto) 0.0 0.0-0.1 10^3/uL Immature Granulocyte # (Auto) 0.0 0.0-0.1 10^3/uL Prothrombin Time 13.2 12.2-14.7 SEC INR Comment 1.0 0.8-1.4 Activated Partial Thromboplast Time 31 24-35 SEC Sodium Level 140 135-145 MMOL/L Potassium Level 3.9 3.6-5.0 MMOL/L Chloride Level 104 98-107 MMOL/L Carbon Dioxide Level 27 21-32 MMOL/L Anion Gap 9 5-14 MMOL/L Blood Urea Nitrogen 15 7-18 MG/DL Creatinine 1.09 0.60-1.30 MG/DL Estimat Glomerular Filtration Rate > 60 BUN/Creatinine Ratio 14 Glucose Level 162 H 70-105 MG/DL Calcium Level 7.7 L 8.5-10.1 MG/DL Corrected Calcium 8.3 L 8.5-10.1 MG/DL Magnesium Level 1.7 1.6-2.4 MG/DL Total Bilirubin 0.7 0.1-1.0 MG/DL Aspartate Amino Transf (AST/SGOT) 17 5-34 U/L Alanine Aminotransferase (ALT/SGPT) 13 0-55 U/L Alkaline Phosphatase 105 40-136 U/L Myoglobin 49.8 10.0-92.0 NG/ML Troponin I 0.162 H 0.157 H <0.028 NG/ML C-Reactive Protein High Sensitivity 0.19 0.00-0.50 MG/DL B-Type Natriuretic Peptide 1539.5 H <100.0 PG/ML Total Protein 6.3 L 6.4-8.2 GM/DL Albumin 3.2 3.2-4.5 GM/DL My Orders Orders - KAYLEN MOHAMUD Cbc With Automated Diff (10/01/20 10:23) Magnesium (10/01/20 10:23) Chest 1 View, Ap/Pa Only (10/01/20 10:23) Ekg Tracing (10/01/20 10:23) Comprehensive Metabolic Panel (10/01/20 10:23) Myoglobin Serum (10/01/20 10:23) Protime With Inr (10/01/20 10:23) Partial Thromboplastin Time (10/01/20 10:23) O2 (10/01/20 10:23) Monitor-Rhythm Ecg Trace Only (10/01/20 10:23) Lipid Panel (10/02/20 06:00) Ed Iv/Invasive Line Start (10/01/20 10:23) BNP (10/01/20 10:23) Troponin I (10/01/20 10:23) Nitroglycerin 0.4 Mg Btl 25's (Nitrostat (10/01/20 10:30) Aspirin Chewable Tablet (Baby Aspirin Ch (10/01/20 10:30) Hs C Reactive Protein (10/01/20 10:23) Troponin I (10/01/20 12:07) Furosemide Injection (Lasix Injection) (10/01/20 12:15) Medications Given in ED Current Medications Medications Dose Ordered Sig/Aylin Route Start Time Stop Time Status Last Admin Dose Admin Aspirin 324 mg ONCE ONCE PO 10/01/20 10:30 10/01/20 10:31 DC 10/01/20 10:46 324 MG Furosemide 40 mg ONCE ONCE IVP 10/01/20 12:15 10/01/20 12:16 DC 10/01/20 12:29 40 MG Nitroglycerin 0.4 mg UD PRN SL 10/01/20 10:30 10/01/20 10:46 0.4 MG Vital Signs/I&O 10/01/20 10:10 Temp 36.3 Pulse 93 Resp 20 B/P (MAP) 165/88 (113) Pulse Ox 95 O2 Delivery Nasal Cannula O2 Flow Rate 2.00 Capillary Refill : Less Than 3 Seconds Blood Pressure Mean: 113 Progress Note : Time: 12:05 Progress Note Suspect he's having pulmonary edema fluid overload related to his recent IV fluids, had blood transfusions and his worsening heart failure. Would expect diuresis to help his situation. He's not in dire distress. We'll discuss with the mobility scooter repairer his marginal elevation of troponin but I suspect it is related to his recent STEMI. Plan to get a repeat troponin in about 2-4 hours after the first 1 was obtained and see if it is going up. ECG Initial ECG Impression Date: Oct 01, 2020 Initial ECG Impression Time: 10:26 Initial ECG Rate: 89 Initial ECG Rhythm: Normal Sinus Initial ECG Intervals: Normal Initial ECG Impression: Normal Comment Normal sinus rhythm with no clinically relevant ST changes. Diagnostic Imaging Diagonstic Imaging: Xray Plain Films/CT/US/NM/MRI: chest Comments [facility] [place], [place] NAME: LUIS BARRERA [facility] REC#: [id number] PT STATUS: REG ER : 1960 PHYSICIAN: KAYLEN MOHAMUD MD ADMIT DATE: 10/01/20/ER Draft Date of Exam:10/01/20 CHEST 1 VIEW, AP/PA ONLY INDICATION: Chest pain Single AP view of the chest obtained with comparison made study of 09/19/2020. There has been further increase in right perihilar airspace disease. There is also blunting of the right costophrenic sulcus. Heart size and pulmonary vascularity are at the upper limits of normal. Left lung appears clear. IMPRESSION: Increasing right perihilar density which could be due to edema or pneumonitis. Clinical correlation would be useful. Dictated on workstation # [id number] Dict: 10/01/20 1102 Trans: 10/01/20 1110 [facility] [id number] Interpreted by: ROSY FUENTES MD Electronically signed by: Reviewed: Reviewed by Me Departure Communication (Admissions) Time/Spoke to Admitting Phy: 12:30 Dr. De Leon agrees to admit the patient for CHF exacerbation on Lasix 40 twice a day. Time/Spoke to Consulting Phy: 12:45 Discussed the case with Dr. Patel and he agrees with consultation. Impression Primary Impression: Acute exacerbation of CHF (congestive heart failure) Qualified Codes: I50.43 - Acute on chronic combined systolic (congestive) and diastolic (congestive) heart failure Disposition: ADMITTED INPATIENT Condition: Stable Admissions Decision to Admit Reason: Admit from ER (General) Decision to Admit/Date: Oct 01, 2020 Time/Decision to Admit Time: 11:40 Departure-Patient Inst. Referrals: ROSA MARIA HA MD (PCP/Family) Primary Care Physician KAYLEN MOHAMUD Oct 01, 2020 12:01
[2020-10-01] MEDS ORDERED: FUROSEMIDE 40 MG/4 ML INJ (LASIX) IVP ONE (12:15)
[2020-10-01] MEDS ORDERED: CATHETER FLUSH 10 ML SYR IV PRN (13:15)
--- NOTE | 2020-10-01 13:20 | NUR ---
DR MARIA HERE TO SEE PT
[2020-10-01 13:45] VITALS: BP 154/99
--- NOTE | 2020-10-01 13:50 | NUR ---
LUIS BARRERA admitted to room 403-1, with an admitting diagnosis of CHF, hypoxia, SOA, on 10/01/20 from ED via wheelchair, accompanied by staff.LUIS BARRERA introduced to surroundings, call light, bed controls, phone, TV, temperature control, lights, meal times, smoking policy, visitor policy, side rail policy, bathrooms and showers. Patient Rights given to patient in the handbook. LUIS BARRERA verbalizes understanding that [facility] is not responsible for the loss or damage to any personal effects or valuables that are kept in the patients posession during their hospitalization.
--- NOTE | 2020-10-01 13:55 | Consultation-Cardiology ---
HPI-Cardiology Cardiology Consultation Date of Consultation 10/01/20 Date of Admission Time Seen by Provider: 13:51 Indication: shortness of breath, edema HPI 60 years old gentleman with history of coronary artery disease, congestive heart failure, discharged recently from the hospital. Has been having palpitation where he feels his heart beating. Had an episode of swelling and feeling short of breath and edematous. Came to the emergency room noted to be in congestive heart failure. On my evaluation was sitting comfortably in bed, no active complaint Home Medications & Allergies Allergies: Coded Allergies: linezolid (Verified Allergy, Unknown, 06/17/19) Home Medication List Reviewed: Yes CTG-Ckdsqh-Ummixt Hx Patient Social History Alcohol Use: Denies Use Recreational Drug Use: No Smoking Status: Never a Smoker 2nd Hand Smoke Exposure: No Recent Foreign Travel: No Recent Infectious Disease Expo: No Recent Hopitalizations: Yes (Aug FOOT PARTIAL LEFT FOOT AMPUTATION) Immunizations Up To Date Tetanus Booster (TDap): Unknown Date of Pneumonia Vaccine: Jan 02, 2011 Date of Influenza Vaccine: Aug 05, 2020 Past Medical History Discussed below Family Medical History Significant Family History: COPD, Diabetes, Hypertension Family History: Family history: Cardiovascular disease 19 FATHER Family history: Diabetes mellitus 19 MOTHER Review of Systems-General Review of Systems Constitutional: see HPI; No chills, No fever; malaise EENTM: see HPI; No hearing loss, No ear pain Respiratory: see HPI; No cough; short of breath Cardiovascular: see HPI; No chest pain; edema, Hx of Intervention, palpitations, vascular heart diseas Gastrointestinal: no symptoms reported, see HPI; No abdominal pain, No constipation, No diarrhea Genitourinary: no symptoms reported, see HPI; No discharge, No dysuria Musculoskeletal: no symptoms reported, see HPI; No back pain, No joint pain Skin: no symptoms reported, see HPI; No pruritus, No rash Psychiatric/Neurological: No Symptoms Reported, See HPI; Denies Headache, Denies Numbness All Other Systems Reviewed Negative Unless Noted: Yes Reviewed Test Results Reviewed Test Results Lab Laboratory Tests Test 10/01/20 10:25 10/01/20 12:30 Range/Units White Blood Count 6.3 4.3-11.0 10^3/uL Red Blood Count 3.35 L 4.30-5.52 10^6/uL Hemoglobin 9.7 L 13.3-17.7 g/dL Hematocrit 32 L 40-54 % Mean Corpuscular Volume 96 80-99 fL Mean Corpuscular Hemoglobin 29 25-34 pg Mean Corpuscular Hemoglobin Concent 30 L 32-36 g/dL Red Cell Distribution Width 15.6 H 10.0-14.5 % Platelet Count 211 130-400 10^3/uL Mean Platelet Volume 9.8 9.0-12.2 fL Immature Granulocyte % (Auto) 0 % Neutrophils (%) (Auto) 64 42-75 % Lymphocytes (%) (Auto) 26 12-44 % Monocytes (%) (Auto) 8 0-12 % Eosinophils (%) (Auto) 2 0-10 % Basophils (%) (Auto) 0 0-10 % Neutrophils # (Auto) 4.0 1.8-7.8 10^3/uL Lymphocytes # (Auto) 1.6 1.0-4.0 10^3/uL Monocytes # (Auto) 0.5 0.0-1.0 10^3/uL Eosinophils # (Auto) 0.1 0.0-0.3 10^3/uL Basophils # (Auto) 0.0 0.0-0.1 10^3/uL Immature Granulocyte # (Auto) 0.0 0.0-0.1 10^3/uL Prothrombin Time 13.2 12.2-14.7 SEC INR Comment 1.0 0.8-1.4 Activated Partial Thromboplast Time 31 24-35 SEC Sodium Level 140 135-145 MMOL/L Potassium Level 3.9 3.6-5.0 MMOL/L Chloride Level 104 98-107 MMOL/L Carbon Dioxide Level 27 21-32 MMOL/L Anion Gap 9 5-14 MMOL/L Blood Urea Nitrogen 15 7-18 MG/DL Creatinine 1.09 0.60-1.30 MG/DL Estimat Glomerular Filtration Rate > 60 BUN/Creatinine Ratio 14 Glucose Level 162 H 70-105 MG/DL Calcium Level 7.7 L 8.5-10.1 MG/DL Corrected Calcium 8.3 L 8.5-10.1 MG/DL Magnesium Level 1.7 1.6-2.4 MG/DL Total Bilirubin 0.7 0.1-1.0 MG/DL Aspartate Amino Transf (AST/SGOT) 17 5-34 U/L Alanine Aminotransferase (ALT/SGPT) 13 0-55 U/L Alkaline Phosphatase 105 40-136 U/L Myoglobin 49.8 10.0-92.0 NG/ML Troponin I 0.162 H 0.157 H <0.028 NG/ML C-Reactive Protein High Sensitivity 0.19 0.00-0.50 MG/DL B-Type Natriuretic Peptide 1539.5 H <100.0 PG/ML Total Protein 6.3 L 6.4-8.2 GM/DL Albumin 3.2 3.2-4.5 GM/DL Physical Exam Physical Exam Vital Signs Vital Signs - First Documented Capillary Refill : Less Than 3 Seconds Height, Weight, BMI Height: 6'4.00" Weight: 240lbs. 3.0oz. 108.197375uz; 33.00 BMI Method:Stated General Appearance: Chronically ill, Mild Distress Eyes: Bilateral Eye Normal Inspection, Bilateral Eye PERRL, Bilateral Eye EOMI HEENT: PERRL/EOMI, Pharynx Normal, Moist Mucous Membranes Neck: Full Range of Motion, Normal Inspection Respiratory: Lungs Clear, No Accessory Muscle Use, No Respiratory Distress, Decreased Breath Sounds Cardiovascular: Regular Rate, Rhythm, No Murmur, Normal Peripheral Pulses Gastrointestinal: Normal Bowel Sounds, Non Tender, Soft Back: Normal Inspection, No CVA Tenderness, No Vertebral Tenderness Extremity: Normal Capillary Refill, Other (bilateral pedal edema trace edema in the hands and facial and abdominal edema.) Neurologic/Psychiatric: Alert, Oriented x3, Normal Mood/Affect Skin: Normal Color, Warm/Dry Lymphatic: No Adenopathy A/P-Cardiology Admission Diagnosis Congestive heart failure Coronary artery disease Hypertension Hyperlipidemia Assessment/Plan Congestive heart failure, acute on chronic left ventricular systolic dysfunction, ejection fraction 35 percent. Patient was started on diuretics. Will monitor closely next Peripheral edema secondary to heart failure. Continue to monitor after diuresis Palpitation, feeling pounding in his heart and chest but normal rate and rhythm. Probably secondary to anxiety. Continue to monitor on telemetry Coronary artery disease, history of multiple intervention, last cardiac catheterization was done on September 10, 2020 showing patent stent in the mid LAD, patent stent in the obtuse marginal branch, severe stenosis at the ostial first obtuse marginal branch/ramus intermedius which was too small for intervention and severe stenosis in the right coronary artery was successful stenting. Cardiac catheterization done on September 19, 2020 showing thrombus with total occlusion of the stent in the distal right coronary artery, successful thrombectomy followed by balloon angioplasty to the distal right coronary artery using 3.5 x 15 mm balloon with excellent results. Recurrent chest pain, chronic persistent pain. Continue to monitor Hypertension, monitor blood pressure, I am adding losartan to his medication Hyperlipidemia, continue on Lipitor 80 mg daily Peripheral arterial disease, history of amputation of his left foot Diabetes mellitus, followed and managed by primary care physician Extensive peripheral arterial disease Depression, managed by primary care physician JONH MARIA MD Oct 01, 2020 13:55
[2020-10-01] MEDS ORDERED: ACETAMINOPHEN 325 MG TABLET PO PRN (14:00)
[2020-10-01] MEDS: CATHETER FLUSH 10 ML SYR IV SCH ×2 (14:18→21:19)
[2020-10-01] MEDS ORDERED: ALBU2.5V4 NEB (14:43)
[2020-10-01] MEDS ORDERED: DULO30CA49 PO (14:43)
[2020-10-01] MEDS ORDERED: NITR0.4T42 SL (14:43)
--- NOTE | 2020-10-01 14:46 | NUR ---
SPOKE WITH THE PT (CALLED HIS ROOM PHONE) AND WENT THRU THE EXT MED HISTORY AND HIS PREVIOUS DISCHARGE SUMMARY TO COMPLETE THE MED REC I SPOKE WITH THE PT DURING HIS LAST ADMISSION AND ENTERED THE MED REC ON 09-20-2020, THE PT AND I WENT OVER THE EXT MED HISTORY WELL TALK ABOUT THE NEW MEDICATIONS STARTED AND THE MEDICATIONS THAT WERE DISCONTINUED. OTC MEDS: ASPIRIN 81 TYLENOL 500MG
[2020-10-01 16:10] VITALS: BP 159/90
[2020-10-01] MEDS: inSUlin ASPART (NovoLOG) 1 UNIT/0.01 ML (CHARGE PER UNIT) SC SCH ×2 (16:10→21:18)
--- NOTE | 2020-10-01 16:45 | NUR ---
Spoke with the patients daughter. She stated the patient takes Klonopin 2mg PO HS and Cymbalta 30mg BID and that she wants to makes sure he gets these medications otherwise he becomes very anxious and depressed. Notified Dr. Garland whom ok the orders.
[2020-10-01] MEDS ORDERED: inSUlin ASPART (NovoLOG) 1 UNIT/0.01 ML (CHARGE PER UNIT) SC SCH ×2 (17:00→18:00)
--- NOTE | 2020-10-01 17:05 | NUR ---
Spoke with Dr. De Leon regarding the order for 10units of Novolog TID. Patients blood sugar is [address] De Leon requested to put the Novolog on hold and just follow the sliding scale.
[2020-10-01] MEDS: FUROSEMIDE 40 MG/4 ML INJ (LASIX) IVP SCH (18:23)
[2020-10-01 20:26] VITALS: BP 146/79
[2020-10-01] MEDS: DULoxetine 30 MG (CYMBALTA) CAP PO SCH (21:18)
[2020-10-01] MEDS: CARVEDILOL 6.25 MG (COREG) TAB PO SCH (21:18)
[2020-10-01] MEDS: clonazePAM 1 MG (KlonoPIN) TAB PO SCH (21:48)
[2020-10-02] VITALS: BP 114/58
[2020-10-02 04:00] VITALS: BP 122/77
[2020-10-02 05:25] LABS: HEMOGLOBIN 9.8 g/dL (13.3-17.7); MEAN PLATELET VOLUME 10.2 fL (9.0-12.2); WHITE BLOOD COUNT 6.1 10^3/uL (4.3-11.0)
[2020-10-02 05:38] LABS: ALBUMIN 3.2 GM/DL (3.2-4.5); CHLORIDE 99 MMOL/L (98-107); POTASSIUM 3.3 MMOL/L (3.6-5.0); SODIUM 142 MMOL/L (135-145)
[2020-10-02 05:39] LABS: CALCIUM 7.6 MG/DL (8.5-10.1)
[2020-10-02 05:40] LABS: GLUCOSE 139 MG/DL (70-105); TOTAL PROTEIN 6.3 GM/DL (6.4-8.2); TRIGLYCERIDES 191 MG/DL (<150); VLDL CHOLESTEROL 38 MG/DL (5-40)
[2020-10-02 05:41] LABS: CARBON DIOXIDE 31 MMOL/L (21-32)
[2020-10-02 05:42] LABS: BILIRUBIN,TOTAL 0.9 MG/DL (0.1-1.0)
[2020-10-02 05:44] LABS: ALKALINE PHOSPHATASE 96 U/L (40-136); GFR ESTIMATED > 60
[2020-10-02 05:45] LABS: BUN/CREATININE RATIO 14; CHOLESTEROL 141 MG/DL (< 200)
[2020-10-02 05:46] LABS: HDL CHOLESTEROL 38 MG/DL (40-60)
[2020-10-02 05:47] LABS: ALANINE AMINOTRANSFERASE 12 U/L (0-55)
[2020-10-02] MEDS: inSUlin ASPART (NovoLOG) 1 UNIT/0.01 ML (CHARGE PER UNIT) SC SCH ×4 (06:03→21:19)
[2020-10-02] MEDS: CATHETER FLUSH 10 ML SYR IV SCH ×3 (06:46→21:19)
[2020-10-02] MEDS: FUROSEMIDE 40 MG/4 ML INJ (LASIX) IVP SCH ×2 (06:46→18:11)
--- NOTE | 2020-10-02 06:48 | Diagnostic Imaging Report ---
EXAMINATION: Chest 1 view HISTORY: Heart failure, hypoxia COMPARISON: 10/01/2020 FINDINGS: There are new right mid and lower zone airspace opacities. There is a new moderate right pleural effusion. Heart is enlarged. No pneumothorax. Left lung is clear. IMPRESSION: 1. New right mid and lower zone airspace opacities with a new moderate pleural effusion. This may represent asymmetric edema, less likely pneumonia. Dictated by: Dictated on workstation # [id number]
[2020-10-02 08:00] VITALS: BP 147/88
--- NOTE | 2020-10-02 08:47 | History & Physicial ---
History of Present Illness History of Present Illness Reason for visit/HPI PT IS A 60 Y/O MALE WHO IS WELL KNOWN TO ME FROM CLINIC. LUIS REPORTS THAT HE NOTICED THAT HIS WEIGHT HAD BEEN INCREASING AND HE WAS HAVING SOME SHORTNESS OF BREATH AND GENERALIZED FATIGUE. HE WAS FOUND TO HAVE FLUID OVERLOAD WHEN HE PRESENTED TO THE EMERGENCY DE PARTMENT. CHEST XRAY SHOWED FLUID IN BASES OF LUNGS BILATERALLY. Date of Admission Oct 01, 2020 at 12:35 Date Seen by a Provider: Oct 02, 2020 Time Seen by a Provider: 08:40 I consulted on this patient on 10/02/20 08:47 Attending Physician ROSA MARIA HA MD Admitting Physician Rosa Maria Ha MD Consult Allergies and Home Medications Allergies Coded Allergies: linezolid (Verified Allergy, Unknown, 06/17/19) Home Medications Acetaminophen 500 Mg Tablet, 1,000 MG PO HS, (Reported) TAKES 2 (500MG) TABLETS Albuterol Sulfate 2.5 Mg/3 Ml Vial.neb, 3 ML NEB Q4 -6H PRN for SHORTNESS OF BREATH, (Reported) Aspirin 81 Mg Tab.chew, 81 MG PO DAILY, (Reported) Atorvastatin Calcium 80 Mg Tablet, 80 MG PO DAILY, (Reported) Carvedilol 6.25 Mg Tablet, 6.25 MG PO BID, (Reported) Clonazepam 1 Mg Tablet, 2 MG PO HS, (Reported) TAKES 2 (1 MG) TABLETS Clopidogrel Bisulfate 75 Mg Tablet, 75 MG PO DAILY, (Reported) Duloxetine HCl 30 Mg Capsule.dr, 30 MG PO BID, (Reported) Ferrous Sulfate 325 Mg Tablet, 325 MG PO BID WITH MEALS Prescribed by: ROSA MARIA HA on 09/21/20925 Finasteride 5 Mg Tablet, 5 MG PO HS, (Reported) Insulin Aspart 300 Units/3 Ml Solution, 10 UNITS SC TIDAC, (Reported) Insulin Degludec 200 Unit/1 Ml Insuln.pen, 50 UNITS SC DAILY, (Reported) Nitroglycerin 0.4 Mg Tab.subl, 0.4 MG SL UD PRN for CHEST PAIN (ANGINA), (Reported) Pantoprazole Sodium 40 Mg Tablet.dr, 40 MG PO DAILY Prescribed by: ROSA MARIA HA on 09/21/20925 Ranolazine 500 Mg Tab.er.12h, 500 MG PO BID, (Reported) Patient Home Medication List Home Medication List Reviewed: Yes Past Cdfdkwq-Taahqi-Bxbjxr Hx Patient Social History Marrital Status: Living Status: LIVES AT HOME WITH SPOUSE 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 Alcohol Use: Denies Use Recreational Drug Use: No Smoking Status: Never a Smoker 2nd Hand Smoke Exposure: No Physical Abuse Screen: No Sexual Abuse: No Recent Foreign Travel: No Contact w/other who traveled: No Recent Hopitalizations: Yes (Aug FOOT PARTIAL LEFT FOOT AMPUTATION) Recent Infectious Disease Expo: Yes Immunizations Up To Date Tetanus Booster (TDap): Unknown Pediatric: No Date of Pneumonia Vaccine: Aug 05, 2020 Date of Influenza Vaccine: Aug 05, 2020 Seasonal Allergies Seasonal Allergies: No Surgeries Yes (ACL REPAIR;WRIST SURGERY;CARDIAC CATH--STENTS; BILAT FOREFOOT AMPUTATION) Abdominal, Amputation, Appendectomy, Cardiac, Coronary Stent, Gallbladder, Orthopedic, Tonsillectomy Respiratory No Currently Using CPAP: No Currently Using BIPAP: No Cardiovascular Yes (CARDIAC CATHS--STENTS X 3-OM2, LAC, RCA) Cardiomyopathy, Coronary Artery Disease, Heart Attack, High Cholesterol, Hypertension Neurological Yes Neuropathy, Stroke Reproductive System Hx Reproductive Disorders: No Sexually Transmitted Disease: No HIV/AIDS: No Genitourinary Yes Kidney Stones Gastrointestinal Yes Abdominal Hernia Musculoskeletal Yes (OSTEOMYELITIS WITH ALL TOES AMPUTATED; BACK FUSION X 3) Degenerate Disk Disease, Arthritis, Chronic Back Pain Endocrine History of Endocrine Disorders: Yes Endocrine Disorders: Diabetes, Insulin dep HEENT History of HEENT Disorders: Yes (R EYE BLOOD CLOT/PARTIAL BLINDNESS) Loss of Vision: Denies Hearing Impairment: Denies Cancer No Psychosocial History of Psychiatric Problem: Yes Behavioral Health Disorders: Anxiety, Depression Integumentary History of Skin or Integumenta: Yes (FOOT ULCERS/OSTEOMYELITIS; MULTIPLE SURGICAL WOUND INFECTIONS) Blood Transfusions History of Blood Disorders: No Adverse Reaction to a Blood Tr: No Reviewed Nursing Assessment Reviewed/Agree w Nursing PMH: Yes Family Medical History Significant Family History: COPD, Diabetes, Hypertension Other Significan Family Hx: PSH: -BILATERAL KNEE SCOPES, WITH OPEN LEFT ACL REPAIR -ALL TOES AMPUTATED BILATERAL FEET -MULTIPLE DEBRIDEMENTS OF FOOT ULCERS -MULTIPLE CARDIAC CATHS-- ANGIOPLASTIES AND STENTS X 3--STENT TO [facility] HERE 05/2018, THEN TRANSFERED TO [facility] AND HAD STENT TO LAD ( COMPLICATED BY SEPSIS DUE TO LEFT FOOT ULCER AND WAS INTUBATED AND HAD PROLONGED HOSPITALIZATIONS/REHAB, AND HAD TOE AMPUTATION) ; HAD STENT TO RCA 01/02/19 -BACK SURGERY/FUSION X 3 -TONSILLECTOMY -APPENDECTOMY -CHOLECYSTECTOMY -HERNIA REPAIR WITH INFECTION/COMPLICATIONS -PORT RIGHT CHEST PLACED/REMOVED DUE TO INFECTION -MANY TEETH REMOVED Family Hx: Family history: Cardiovascular disease 19 FATHER Family history: Diabetes mellitus 19 MOTHER Review of Systems Constitutional: No chills, No dizziness, No fever, No malaise; weakness EENTM: No hoarseness, No throat pain Respiratory: No cough, No dyspnea on exertion; short of breath Cardiovascular: No chest pain; edema, Hx of Intervention; No palpitations; vascular heart diseas Gastrointestinal: No abdominal pain, No constipation, No diarrhea, No nausea, No vomiting Genitourinary: no symptoms reported Musculoskeletal: other (FOOT WOUND) Skin: other (SURGICAL WOUND LEFT FOOT) Psychiatric/Neurological: Anxiety, Depressed, Weakness All Other Systems Reviewed Negative Unless Noted: Yes Physical Exam Vital Signs Vital Signs - First Documented Capillary Refill : Less Than 3 Seconds Height, Weight, BMI Height: 6'4.00" Weight: 240lbs. 3.0oz. [id number]; 33.28 BMI Method:Stated General Appearance: No Apparent Distress, WD/WN HEENT: PERRL/EOMI, Pharynx Normal Neck: Full Range of Motion, Non Tender, Supple Respiratory: Chest Non Tender, Lungs Clear, Normal Breath Sounds, No Accessory Muscle Use, No Respiratory Distress Cardiovascular: Regular Rate, Rhythm Gastrointestinal: Normal Bowel Sounds, No Organomegaly, No Pulsatile Mass, Non Tender, Soft Rectal: Deferred Extremity: No Calf Tenderness; Pedal Edema, Swelling (OF CALVES AND POSTERIOR THIGHS) Neurologic/Psychiatric: Alert, Oriented x3, No Motor/Sensory Deficits, Other (FLAT AFFECT) Skin: Normal Color, Warm/Dry Lymphatic: No Adenopathy Assessment/Plan Assessment and Plan CONGESTIVE HEART FAILURE CORONARY ARTERY DISEASE HYPERTENSION DIABETES MELLITUS CHRONIC ANXIETY CHRONIC BIPOLAR DEPRESSION PERIPHERAL VASCULAR DISEASE 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 GRADE 2 DIASTOLIC DYSFUNCTION, DILATED LEFT ATRIAM, MOD TO SEVERE MITRAL VALVE REGURGITATION., MILD PULMONARY HYPERTENSION. - PT ON LASIX 80MG IV BID. - CHECK LABS CORONARY ARTERY DISEASE - SUPPORTIVE CARE HYPERTENSION - SUPPORTIVE CARE - MONITOR PRESSURES AT HOME. DIABETES MELLITUS - ON INSULIN, MONITOR FSBS, SLIDING SCALE INSULIN. CHRONIC ANXIETY WITH CHRONIC BIPOLAR DEPRESSION - CLONAZEPAM AND CYMBALTA RESTARTED. PERIPHERAL VASCULAR DISEASE WITH LEFT FOREFOOT AMPUTATION WITH SUTURES IN WOUND BED - PT HAS HAD MULTIPLE AMPUTATIONS, CONTINUE WITH SUPPORTIVE CARE, WOUND IS NOT ACUTELY INFECTED, EDGES OF WOUND APPEAR APPROXIMATED AND HE DOES NOT HAVE ANY ACTIVE SITES OF BLEEDING, CONTINUE WITH IODINE TO WOUND BED. Admission Diagnosis CONGESTIVE HEART FAILURE CORONARY ARTERY DISEASE HYPERTENSION DIABETES MELLITUS CHRONIC ANXIETY CHRONIC BIPOLAR DEPRESSION PERIPHERAL VASCULAR DISEASE LEFT FOREFOOT AMPUTATION WITH SUTURES IN WOUND BED Admission Status: Inpatient Order (span 2 midnights) Reason for Inpatient Admission: INPATIENT ADMISSION FOR CONGESTIVE HEART FAILURE, WILL REQUIRE AT LEAST 48 HOURS FOR STABILIZATION AND MEDICATION CHANGES Clinical Quality Measures DVT/VTE Risk/Contraindication: Risk Factor Score Per Nursin RFS Level Per Nursing on Admit: 4+=Very High ROSA MARIA HA MD Oct 02, 2020 08:47
[2020-10-02] MEDS ORDERED: clonazePAM 1 MG (KlonoPIN) TAB PO SCH (09:00)
[2020-10-02] MEDS: PANTOPRAZOLE 40 MG (PROTONIX) TAB PO SCH (09:12)
[2020-10-02] MEDS: CLOPIDOGREL 75 MG (PLAVIX) TABLET PO SCH (09:12)
[2020-10-02] MEDS: DULoxetine 30 MG (CYMBALTA) CAP PO SCH ×2 (09:12→20:45)
[2020-10-02] MEDS: ASPIRIN 81 MG CHEW (CHILDREN'S ASA) PO SCH (09:12)
[2020-10-02] MEDS: LOSARTAN 25 MG (COZAAR) TAB PO SCH (09:21)
[2020-10-02] MEDS: CARVEDILOL 6.25 MG (COREG) TAB PO SCH ×2 (09:21→20:45)
[2020-10-02 12:00] VITALS: BP 143/80
--- NOTE | 2020-10-02 12:54 | Cardiology Progress Note ---
Subjective Date Seen by Provider: Oct 02, 2020 Time Seen by Provider: 12:53 Subjective/Events-last exam Patient is laying down in bed, feeling better, reporting improvement in the swelling, no active chest pain Review of Systems General: No Chills, No Night Sweats, No Fatigue, No Malaise, No Appetite, No Other HEENT: No Head Aches, No Visual Changes, No Eye Pain, No Ear Pain, No Dysphasia, No Sinus Congestion, No Post Nasal Drip, No Sore Throat, No Other Pulmonary: No Dyspnea, No Cough, No Pleuritic Chest Pain, No Other Cardiovascular: No: Chest Pain, Palpitations, Orthopnea, Paroxysmal Noc. Dyspnea, Edema, Lt Headedness, Other Objective-Cardiology Exam Last Set of Vital Signs Vital Signs 10/01/20 10/02/20 10/02/20 13:39 08:00 10:18 Temp 36.6 Pulse 88 Resp 18 B/P (MAP) 147/88 (107) Pulse Ox 94 O2 Delivery Room Air O2 Flow Rate 2.00 Capillary Refill : Less Than 3 Seconds I&O l Intake and Output 10/02/20 00:00 Intake Total 420 ml Output Total 2800 ml Balance -2380 ml Intake Oral 420 ml Output Urine Total 2800 ml Daily Weight Change No No General: Alert, Oriented X3, Cooperative HEENT: Atraumatic, PERRLA Neck: Supple, No JVD, No Thyromegaly Lungs: Clear to Auscultation, Normal Air Movement Heart: Regular Rate, Normal S1, Normal S2, No Murmurs Abdomen: Normal Bowel Sounds, Soft, No Tenderness, No Hepatosplenomegaly, No Masses Extremities: No Clubbing, No Cyanosis, No Edema, Normal Pulses, No Tenderness/Swelling Skin: No Rashes, No Breakdown, No Significant Lesion Neuro: Normal Gait, Normal Speech, Strength at 5/5 X4 Ext, Normal Tone, Sensation Intact Psych/Mental Status: Mental Status NL, Mood NL Results Lab Laboratory Tests 10/02/20 04:43 A/P-Cardiology Admission Diagnosis Congestive heart failure Coronary artery disease Hypertension Hyperlipidemia Assessment/Plan Congestive heart failure, acute on chronic left ventricular systolic dysfunction, ejection fraction 35 percent. Responding well to diuretics, came him on diuretic as an outpatient Mild elevation of troponins due to small vessel disease. Severe cardiomyopathy. Continue with medical therapy and monitor as an outpatient Peripheral edema secondary to heart failure. Continue to monitor after diuresis Palpitation, feeling pounding in his heart and chest but normal rate and rhythm. Probably secondary to anxiety. Continue to monitor on telemetry Coronary artery disease, history of multiple intervention, last cardiac catheter ization was done on September 10, 2020 showing patent stent in the mid LAD, patent stent in the obtuse marginal branch, severe stenosis at the ostial first obtuse marginal branch/ramus intermedius which was too small for intervention and severe stenosis in the right coronary artery was successful stenting. Cardiac catheterization done on September 19, 2020 showing thrombus with total occlusion of the stent in the distal right coronary artery, successful thrombectomy followed by balloon angioplasty to the distal right coronary artery using 3.5 x 15 mm balloon with excellent results. Recurrent chest pain, chronic persistent pain. No active chest pain today. Okay for discharge Hypertension, monitor blood pressure, I am adding losartan to his medication Hyperlipidemia, continue on Lipitor 80 mg daily Peripheral arterial disease, history of amputation of his left foot Diabetes mellitus, followed and managed by primary care physician Extensive peripheral arterial disease Depression, managed by primary care physician Clinical Quality Measures DVT/VTE Risk/Contraindication: Risk Factor Score Per Nursin RFS Level Per Nursing on Admit: 4+=Very High JONH MARIA MD Oct 02, 2020 12:54
[2020-10-02] MEDS ORDERED: LOSA25TA41 PO (12:55)
[2020-10-02] MEDS ORDERED: FURO-125 PO (12:55)
[2020-10-02] MEDS ORDERED: POTA10TA PO (12:55)
[2020-10-02] MEDS ORDERED: KCL 20 MEQ TAB (K-DUR) PO ONE ×2 (14:00→18:00)
[2020-10-02 15:24] VITALS: BP 155/90
[2020-10-02 19:06] VITALS: BP 122/73
[2020-10-02] MEDS: clonazePAM 1 MG (KlonoPIN) TAB PO SCH (20:45)
[2020-10-03 00:31] VITALS: BP 105/51
[2020-10-03 04:00] VITALS: BP 100/50
[2020-10-03] MEDS ORDERED: KCL 20 MEQ TAB (K-DUR) PO SCH (06:00)
[2020-10-03 06:45] LABS: CHLORIDE 99 MMOL/L (98-107); POTASSIUM 3.7 MMOL/L (3.6-5.0); SODIUM 142 MMOL/L (135-145)
[2020-10-03 06:46] LABS: CALCIUM 7.8 MG/DL (8.5-10.1)
[2020-10-03 06:47] LABS: GLUCOSE 143 MG/DL (70-105)
[2020-10-03 06:48] LABS: CARBON DIOXIDE 32 MMOL/L (21-32)
[2020-10-03 06:51] LABS: BUN/CREATININE RATIO 13; CREATININE SERUM 0.93 MG/DL (0.60-1.30); GFR ESTIMATED > 60
[2020-10-03] MEDS: inSUlin ASPART (NovoLOG) 1 UNIT/0.01 ML (CHARGE PER UNIT) SC SCH ×2 (06:52→11:03)
[2020-10-03] MEDS: CATHETER FLUSH 10 ML SYR IV SCH (06:56)
[2020-10-03] MEDS: FUROSEMIDE 40 MG/4 ML INJ (LASIX) IVP SCH (06:56)
[2020-10-03 08:00] VITALS: BP 132/80
[2020-10-03] MEDS: ASPIRIN 81 MG CHEW (CHILDREN'S ASA) PO SCH (08:46)
[2020-10-03] MEDS: CARVEDILOL 6.25 MG (COREG) TAB PO SCH (08:46)
[2020-10-03] MEDS: PANTOPRAZOLE 40 MG (PROTONIX) TAB PO SCH (08:46)
[2020-10-03] MEDS: CLOPIDOGREL 75 MG (PLAVIX) TABLET PO SCH (08:46)
[2020-10-03] MEDS: LOSARTAN 25 MG (COZAAR) TAB PO SCH (08:46)
[2020-10-03] MEDS: DULoxetine 30 MG (CYMBALTA) CAP PO SCH (08:46)
--- NOTE | 2020-10-03 08:57 | Cardiology Progress Note ---
Subjective Date Seen by Provider: Oct 03, 2020 Time Seen by Provider: 08:55 Subjective/Events-last exam Patient is laying down in bed, feeling better today. No new complaint. Review of Systems General: No Chills, No Night Sweats, No Fatigue, No Malaise, No Appetite, No Other HEENT: No Head Aches, No Visual Changes, No Eye Pain, No Ear Pain, No Dysphasia, No Sinus Congestion, No Post Nasal Drip, No Sore Throat, No Other Pulmonary: No Dyspnea, No Cough, No Pleuritic Chest Pain, No Other Cardiovascular: No: Chest Pain, Palpitations, Orthopnea, Paroxysmal Noc. Dyspnea, Edema, Lt Headedness, Other Objective-Cardiology Exam Last Set of Vital Signs Vital Signs 10/03/20 10/03/20 10/03/20 04:00 07:00 08:40 Temp 36.2 Pulse 80 Resp 18 B/P (MAP) 100/50 (67) Pulse Ox 93 O2 Delivery Nasal Cannula O2 Flow Rate 2.00 Capillary Refill : Less Than 3 Seconds I&O Intake and Output0 10/03/20 00:00 Intake Total 1630 ml Output Total 4725 ml Balance -3095 ml Intake Oral 1630 ml Output Urine Total 4725 ml General: Alert, Oriented X3, Cooperative HEENT: Atraumatic, PERRLA Neck: Supple, No JVD, No Thyromegaly Lungs: Clear to Auscultation, Normal Air Movement Heart: Regular Rate, Normal S1, Normal S2, No Murmurs Abdomen: Normal Bowel Sounds, Soft, No Tenderness, No Hepatosplenomegaly, No Masses Extremities: No Clubbing, No Cyanosis, No Edema, Normal Pulses, No Tenderness/Swelling Skin: No Rashes, No Breakdown, No Significant Lesion Neuro: Normal Gait, Normal Speech, Strength at 5/5 X4 Ext, Normal Tone, Sensation Intact Psych/Mental Status: Mental Status NL, Mood NL Results Lab Laboratory Tests 10/03/20 06:02 A/P-Cardiology Admission Diagnosis Congestive heart failure Coronary artery disease Hypertension Hyperlipidemia Assessment/Plan Congestive heart failure, acute on chronic left ventricular systolic dysfunction, ejection fraction 35 percent. Responding well to diuretics, continue on diuretics as an outpatient. Mild elevation of troponins due to small vessel disease. Severe cardiomyopathy. Continue with medical therapy and monitor as an outpatient Peripheral edema secondary to heart failure. Improved. Patient is feeling better. No significant edema was noted. Palpitation, feeling pounding in his heart and chest but normal rate and rhythm. Probably secondary to anxiety. Continue to monitor on telemetry Coronary artery disease, history of multiple intervention, last cardiac catheter ization was done on September 10, 2020 showing patent stent in the mid LAD, patent stent in the obtuse marginal branch, severe stenosis at the ostial first obtuse marginal branch/ramus intermedius which was too small for intervention and severe stenosis in the right coronary artery was successful stenting. Cardiac catheterization done on September 19, 2020 showing thrombus with total occlusion of the stent in the distal right coronary artery, successful thrombectomy followed by balloon angioplasty to the distal right coronary artery using 3.5 x 15 mm balloon with excellent results. Recurrent chest pain, chronic persistent pain. No active chest pain today. Okay for discharge Hypertension, monitor blood pressure, I am adding losartan to his medication Hyperlipidemia, continue on Lipitor 80 mg daily Peripheral arterial disease, history of amputation of his left foot Diabetes mellitus, followed and managed by primary care physician Extensive peripheral arterial disease Depression, managed by primary care physician Okay for discharge from cardiology standpoint and follow up as an outpatient Clinical Quality Measures DVT/VTE Risk/Contraindication: Risk Factor Score Per Nursin RFS Level Per Nursing on Admit: 4+=Very High JONH MARIA MD Oct 03, 2020 08:56
[2020-10-03] MEDS ORDERED: FUROSEMIDE 20 MG (LASIX) TAB PO SCH (09:00)
--- NOTE | 2020-10-03 09:51 | Diagnostic Imaging Report ---
EXAMINATION: Chest 1 view HISTORY: Pleural effusion COMPARISON: 10/02/2020 FINDINGS: The lungs are clear without edema or pneumonia. Right-sided pleural effusion is now absent. There is no pneumothorax. Heart size is normal. IMPRESSION: 1. Resolution of right pleural effusion. No pneumothorax. Dictated by: Dictated on workstation # [id number]
--- NOTE | 2020-10-03 10:39 | Discharge Summary ---
Diagnosis/Chief Complaint Date of Admission Oct 01, 2020 at 12:35 Date of Discharge Discharge Date: Oct 03, 2020 Discharge Time: 12:30 Admission Diagnosis Admission Diagnosis CONGESTIVE HEART FAILURE CORONARY ARTERY DISEASE HYPERTENSION DIABETES MELLITUS CHRONIC ANXIETY CHRONIC BIPOLAR DEPRESSION PERIPHERAL VASCULAR DISEASE LEFT FOREFOOT AMPUTATION WITH SUTURES IN WOUND BED Discharge Diagnosis CONGESTIVE HEART FAILURE CORONARY ARTERY DISEASE HYPERTENSION DIABETES MELLITUS CHRONIC ANXIETY CHRONIC BIPOLAR DEPRESSION PERIPHERAL VASCULAR DISEASE LEFT FOREFOOT AMPUTATION WITH SUTURES IN WOUND BED Reason Hospital Visit PT IS A 60 Y/O MALE WHO IS WELL KNOWN TO ME FROM CLINIC. LUIS REPORTS THAT HE NOTICED THAT HIS WEIGHT HAD BEEN INCREASING AND HE WAS HAVING SOME SHORTNESS OF BREATH AND GENERALIZED FATIGUE. HE WAS FOUND TO HAVE FLUID OVERLOAD WHEN HE PRESENTED TO THE EMERGENCY DEPARTMENT. CHEST XRAY SHOWED FLUID IN BASES OF LUNGS BILATERALLY. Discharge Summary Consultations DR. MARIA Discharge Physical Examination Allergies: Coded Allergies: linezolid (Verified Allergy, Unknown, 06/17/19) Vitals & I&Os Vital Signs Date Time Temp Pulse Resp B/P (MAP) Pulse Ox O2 Delivery O2 Flow Rate FiO2 10/03/20 08:40 Nasal Cannula 2.00 10/03/20 08:00 36.2 83 16 132/80 (97) 91 General Appearance: Alert, Oriented X3, Cooperative, No Acute Distress HEENT: Atraumatic, PERRLA, Mucous Memb Moist/[place] Respiratory: Clear to Auscultation, Normal Air Movement Cardiovascular: Regular Rate Abdominal: Normal Bowel Sounds, Soft, No Tenderness Extremities: Other (BILATERAL FOREFOOT AMPUTATIONS - LEFT FOOT DRESSED WITH KERLEX - MEDIAL EDGE WITH DRIED BLOOD SOAKING INTO DRESSING) Skin: Other (LEFT FOOT WOUND DRESSED) Neuro: Normal Speech, Cranial Nerves 3-12 NL Psych/Mental Status: Mental Status NL, Mood NL (IMPROVED AFFECT - MUCH LESS FLAT THAN YESTERDAY) Hospital Course Was the Problem List Reviewed?: Yes CONGESTIVE HEART FAILURE CORONARY ARTERY DISEASE HYPERTENSION DIABETES MELLITUS CHRONIC ANXIETY CHRONIC BIPOLAR DEPRESSION PERIPHERAL VASCULAR DISEASE 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 GRADE 2 DIASTOLIC DYSFUNCTION, DILATED LEFT ATRIAM, MOD TO SEVERE MITRAL VALVE REGURGITATION., MILD PULMONARY HYPERTENSION. - PT ON LASIX 80MG IV BID. - CHANGED TO ORAL LASIX - AFTER ADEQUATE RESPONSE TO IV LASIX. WILL DISCHARGE ON LASIX 20MG DAILY SUN/UR/SAT/SUN AND 20MG BID ON // WITH KCL 10MG DAILY TU/THUR/SAT/SUN AND 10MG BID // - CHECK LABS CORONARY ARTERY DISEASE - SUPPORTIVE CARE HYPERTENSION - SUPPORTIVE CARE - MONITOR PRESSURES AT HOME. DIABETES MELLITUS - ON INSULIN, MONITOR FSBS, SLIDING SCALE INSULIN. CHRONIC ANXIETY WITH CHRONIC BIPOLAR DEPRESSION - CLONAZEPAM AND CYMBALTA RESTARTED. PERIPHERAL VASCULAR DISEASE WITH LEFT FOREFOOT AMPUTATION WITH SUTURES IN WOUND BED - PT HAS HAD MULTIPLE AMPUTATIONS, CONTINUE WITH SUPPORTIVE CARE, WOUND IS NOT ACUTELY INFECTED, EDGES OF WOUND APPEAR APPROXIMATED AND HE DOES NOT HAVE ANY ACTIVE SITES OF BLEEDING, CONTINUE WITH IODINE TO WOUND BED. Pending Labs Laboratory Tests 10/03/20 06:02: Sodium Level 142, Potassium Level 3.7, Chloride Level 99, Carbon Dioxide Level 32, Anion Gap 11, Blood Urea Nitrogen 12, Creatinine 0.93, Estimat Glomerular Filtration Rate > 60, BUN/Creatinine Ratio 13, Glucose Level 143, Calcium Level 7.8 Discharge Condition at discharge IMPROVED Instructions to patient/family Please see electronic discharge instructions given to patient. Discharge Medications Reviewed and agree with Discharge Medication list on patient's Discharge Instruction sheet Clinical Quality Measures DVT/VTE Risk/Contraindication: Risk Factor Score Per Nursin RFS Level Per Nursing on Admit: 4+=Very High ROSA MARIA PRADO MD Oct 03, 2020 10:39
[2020-10-03] MEDS ORDERED: POTA10TA36 PO (10:53)
[2020-10-03] MEDS ORDERED: FURO-125 PO (10:53)
--- NOTE | 2020-10-03 10:56 | Discharge Inst-Simple/Standard ---
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 FOR APPT GET LABS ON SUNDAY OF THIS WEEK AT [facility] Activity as Tolerated: Yes Discharge Diet: Low Sodium Diet Return to The Hospital For: ANY CONCERN FOR WORSENING FLUID OVERLOAD, CHEST PAIN, SHORTNESS OF BREATH OR LIFETHREATENING CONCERNS Medication List: Active Scripts Active Potassium Chloride 10 Meq Tab.er.prt 10 Meq PO UD ONE TAB DAILY ON SUN//SUN/SUN AND ONE TAB TWICE DAILY ON SUN/ Lasix (Furosemide) 20 Mg Tablet 20 Mg PO UD ONE TAB DAILY ON SUN//SUN/SUN AND ONE TAB TWICE DAILY ON Losartan Potassium 25 Mg Tablet 25 Mg PO DAILY Pantoprazole Sodium 40 Mg Tablet.dr 40 Mg PO DAILY Ferrous Sulfate 325 Mg Tablet 325 Mg PO BID WITH MEALS Reported Albuterol Sulfate 2.5 Mg/3 Ml Vial.neb 3 Ml NEB Q4 -6H PRN Duloxetine HCl 30 Mg Capsule.dr 30 Mg PO BID Nitroglycerin 0.4 Mg Tab.subl 0.4 Mg SL UD PRN Coreg (Carvedilol) 6.25 Mg Tablet 6.25 Mg PO BID Finasteride 5 Mg Tablet 5 Mg PO HS Ranolazine ER (Ranolazine) 500 Mg Tab.er.12h 500 Mg PO BID Plavix (Clopidogrel Bisulfate) 75 Mg Tablet 75 Mg PO DAILY Aspirin 81 Mg Tab.chew 81 Mg PO DAILY Atorvastatin Calcium 80 Mg Tablet 80 Mg PO DAILY Tylenol Extra Strength (Acetaminophen) 500 Mg Tablet 1,000 Mg PO HS TAKES 2 (500MG) TABLETS Tresiba Flextouch U-200 (Insulin Degludec) 200 Unit/1 Ml Insuln.pen 50 Units SC DAILY Novolog Flexpen (Insulin Aspart) 300 Units/3 Ml Solution 10 Units SC TIDAC Clonazepam 1 Mg Tablet 2 Mg PO HS TAKES 2 (1 MG) TABLETS Lab results: Laboratory Tests Test 10/02/20 11:59 10/02/20 15:32 10/02/20 20:38 10/03/20 06:02 Range/Units Glucometer 148 H 186 H 185 H 70-110 MG/DL Sodium Level 142 135-145 MMOL/L Potassium Level 3.7 3.6-5.0 MMOL/L Chloride Level 99 98-107 MMOL/L Carbon Dioxide Level 32 21-32 MMOL/L Anion Gap 11 5-14 MMOL/L Blood Urea Nitrogen 12 7-18 MG/DL Creatinine 0.93 0.60-1.30 MG/DL Estimat Glomerular Filtration Rate > 60 BUN/Creatinine Ratio 13 Glucose Level 143 H 70-105 MG/DL Calcium Level 7.8 L 8.5-10.1 MG/DL My orders: Orders - ROSA MARIA PRADO MD Chest 1 View, Ap/Pa Only (10/03/20 09:10) Attending Discharge Inpt/Inobs (10/03/20 10:44) ROSA MARIA PRADO MD Oct 03, 2020 10:56
[2020-10-03 12:00] VITALS: BP 140/80
[2020-10-03 13:52] VITALS: BP 140/80
[2020-10-04] MEDS ORDERED: KCL 10 MEQ TAB (MICRO K) PO SCH (07:00)
== END 2020-10-03 13:54 | disposition home or self-care (01) | DRG 282 ==
LOC: EDUNIT# 09:48 → ER 09:50 → CSD 12:35 → EDLOC 12:35 → 4TH 13:39
PROVIDERS: ADMIT Family Medicine; ATTEND Family Medicine
DX: I11.0 Hypertensive heart disease with heart failure (principal); I21.3 ST elevation (STEMI) myocardial infarction of unspecified site; I50.23 Acute on chronic systolic (congestive) heart failure; I42.9 Cardiomyopathy, unspecified; E11.51 Type 2 diabetes mellitus with diabetic peripheral angiopathy without gangrene; E11.40 Type 2 diabetes mellitus with diabetic neuropathy, unspecified; E78.5 Hyperlipidemia, unspecified; I27.20 Pulmonary hypertension, unspecified; I25.10 Atherosclerotic heart disease of native coronary artery without angina pectoris; R11.10 Vomiting, unspecified; F41.9 Anxiety disorder, unspecified; F31.9 Bipolar disorder, unspecified; Z79.4 Long term (current) use of insulin; Z95.5 Presence of coronary angioplasty implant and graft; Z89.432 Acquired absence of left foot; Z89.421 Acquired absence of other right toe(s); Z90.49 Acquired absence of other specified parts of digestive tract; Z90.89 Acquired absence of other organs
CPT/HCPCS: 36415; 71045; 80048; 80053; 80061; 82962; 83735; 83874; 83880; 84484; 85025; 85027; 85610; 85730; 86141; 93005; 93041; G0378

== ENCOUNTER 2020-11-10 05:32 | Outpatient (RCR) | payer OTHER ==
[~2020-11-10] VITALS: Ht 193 cm; Wt 111.4 kg
[~2020-11-10 05:32] MED LIST changes: +ALBU2.5V4 NEB; +FURO-125 PO; +NITR0.4T42 SL; +POTA10TA PO; +POTA10TA36 PO
== END 2020-11-10 10:14 | disposition home or self-care (01) ==
LOC: PREOP 05:32
PROVIDERS: ATTEND Specialist
DX: Z01.818 Encounter for other preprocedural examination (principal); H25.11 Age-related nuclear cataract, right eye
CPT/HCPCS: 87635

== ENCOUNTER 2020-11-12 06:39 | Day surgery (SDC) | payer OTHER ==
[~2020-11-12] VITALS: Ht 193 cm; Wt 111.4 kg
[2020-11-12] MEDS ORDERED: MIDAZOLAM 2 MG/2 ML (VERSED) VIAL ONE (06:48)
[2020-11-12] MEDS ORDERED: LIDOCAINE PF 1% 2 ML VIAL IR PRN (07:00)
[2020-11-12] MEDS ORDERED: TIMOLOL MALEATE 0.5% 5 ML (TIMOPTIC) BTL OU PRN (07:00)
[2020-11-12] MEDS ORDERED: POVIDONE (BETADINE) OPHTH SOLN 5% 30 ML OP ONE (07:00)
[2020-11-12] MEDS ORDERED: MOXIFLOXACIN OPHTH SOLN 5 MG/ML 0.3 ML SYRINGE OP ONE (07:00)
[2020-11-12 07:07] VITALS: BP 118/74
[2020-11-12] MEDS: TETRACAINE 0.5% OPHTH SOLN 4 ML BTL (SINGLE DOSE ONLY) OU PRN ×4 (07:10→07:35)
[2020-11-12] MEDS: TROPICAMIDE 1% OPH SOLN (MYDRIACYL) 15 ML BTL OP SCH ×3 (07:24→07:36)
[2020-11-12] MEDS: PHENYLEPHRINE 10% OPHTH (NEO-SYN) 5 ML BTL OU SCH ×3 (07:24→07:36)
--- NOTE | 2020-11-12 07:47 | Ophthalmologist Pre-Op Note ---
Pre-Operative Progress Note H&P Reviewed The H&P was reviewed, patient examined and no changes noted. Date H&P Reviewed: Nov 12, 2020 Time H&P Reviewed: 07:46 Pre-Op Dx Cataract, Right Eye HIRO FRENCH MD Nov 12, 2020 07:47
[2020-11-12] MEDS ORDERED: acetaZOLAMIDE ER 500 MG CAP (DIAMOX SEQUELS) PO ONE (08:00)
--- NOTE | 2020-11-12 08:05 | Ophthalmology Operative Report ---
Cataract removal/placement IOL PREOPERATIVE DIAGNOSIS: Cataract Right Eye POSTOPERATIVE DIAGNOSIS: Cataract Right Eye PROCEDURE: Cataract removal and placement of posterior chamber implant, right eye SURGEON: Amadeo French ANESTHESIA: Topical with sedation COMPLICATIONS: None ESTIMATED BLOOD LOSS: Minimal DESCRIPTION OF PROCEDURE: After proper informed consent was obtained, the patient, a 60 male, was taken to the Operating Room and the right eye was anesthetized with tetracaine. The right eye was then prepped and draped in the usual manner. A wire lid speculum was placed. A paracentesis was made at the left hand position. Preservative free lidocaine was injected into the anterior chamber followed by viscoelastic. A clear corneal incision was made in the temporal position. A capsulorrhexis was preformed and the central nuclear and cortical material were removed. The posterior capsule was polished and [place] 22.0 AU00T0 IOL was placed into the capsular bag. The residual viscoelastic was aspirated and balanced saline solution was injected into the anterior chamber. Moxifloxacin was injected into the anterior chamber. The wound was checked and found to be water tight. The patient tolerated the procedure well without complications. AMADEO FRENCH MD Nov 12, 2020 08:05
[2020-11-12 08:17] VITALS: BP 118/62
--- NOTE | 2020-11-12 11:11 | Anesthesia-General Post-Op ---
MAC Patient Condition Mental Status/LOC: Same as Preop Cardiovascular: Satisfactory Nausea/Vomiting: Absent Respiratory: Satisfactory Pain: Controlled Complications: Absent Post Op Complications Complications None Follow Up Care/Instructions Patient Instructions None needed. Anesthesiology Discharge Order Discharge Order Patient is doing well, no complaints, stable vital signs, no apparent adverse anesthesia problems. No complications reported per nursing. NYA FRANCIS CRNA Nov 12, 2020 11:11
== END 2020-11-12 08:48 | disposition home or self-care (01) ==
LOC: SDC 06:39
PROVIDERS: ATTEND Specialist
DX: E11.36 Type 2 diabetes mellitus with diabetic cataract (principal); H25.11 Age-related nuclear cataract, right eye; I10 Essential (primary) hypertension; I25.10 Atherosclerotic heart disease of native coronary artery without angina pectoris; I48.91 Unspecified atrial fibrillation; F32.9 Major depressive disorder, single episode, unspecified; F41.9 Anxiety disorder, unspecified; E11.40 Type 2 diabetes mellitus with diabetic neuropathy, unspecified; Z79.899 Other long term (current) drug therapy; Z87.442 Personal history of urinary calculi; Z88.1 Allergy status to other antibiotic agents
CPT/HCPCS: 66984; 82962; V2632

== ENCOUNTER → 2021-02-10 | Outpatient (CLI) | payer OTHER ==
[~2021-02-10] MED LIST changes: -ISOS30TA3 PO; +ISOS30TA82 PO; -LISI-556 PO; +LISI-729 PO; -LISI10TA2 PO; +LISI10TA25 PO
== END ==
LOC: LABNPT 10:52
PROVIDERS: ATTEND Family Medicine
DX: Z51.81 Encounter for therapeutic drug level monitoring (principal)
CPT/HCPCS: 80202

== ENCOUNTER → 2021-02-13 | Outpatient (CLI) | payer OTHER ==
[2021-02-13 11:00] LABS: BASOPHILS % (AUTO) 1 % (0-10); EOSINOPHILS # (AUTO) 0.3 10^3/uL (0.0-0.3); EOSINOPHILS % (AUTO) 5 % (0-10); HEMATOCRIT 41 % (40-54); HEMOGLOBIN 13.1 g/dL (13.3-17.7); LYMPHOCYTES # (AUTO) 2.3 10^3/uL (1.0-4.0); LYMPHOCYTES % (AUTO) 38 % (12-44); MEAN CORPUSCULAR HEMOGLOBIN 27 pg (25-34); MEAN CORPUSCULAR HGB CONC 32 g/dL (32-36); MEAN CORPUSCULAR VOLUME 86 fL (80-99); MEAN PLATELET VOLUME 10.8 fL (9.0-12.2); MONOCYTES # (AUTO) 0.5 10^3/uL (0.0-1.0); MONOCYTES % (AUTO) 8 % (0-12); NEUTROPHILS # (AUTO) 2.8 10^3/uL (1.8-7.8); NEUTROPHILS % (AUTO) 48 % (42-75); PLATELET COUNT 145 10^3/uL (130-400)
[2021-02-13 11:17] LABS: ALBUMIN 3.6 GM/DL (3.2-4.5); CHLORIDE 100 MMOL/L (98-107); POTASSIUM 4.9 MMOL/L (3.6-5.0); SODIUM 134 MMOL/L (135-145)
[2021-02-13 11:18] LABS: CALCIUM 8.4 MG/DL (8.5-10.1)
[2021-02-13 11:19] LABS: GLUCOSE 272 MG/DL (70-105); TOTAL PROTEIN 6.6 GM/DL (6.4-8.2)
[2021-02-13 11:20] LABS: CARBON DIOXIDE 24 MMOL/L (21-32)
[2021-02-13 11:21] LABS: BILIRUBIN,TOTAL 0.7 MG/DL (0.1-1.0)
[2021-02-13 11:23] LABS: ALKALINE PHOSPHATASE 105 U/L (40-136); CREATININE SERUM 1.19 MG/DL (0.60-1.30); GFR ESTIMATED > 60
[2021-02-13 11:24] LABS: BUN/CREATININE RATIO 13
[2021-02-13 11:26] LABS: ALANINE AMINOTRANSFERASE 36 U/L (0-55)
[2021-02-13 11:29] LABS: EOSINOPHILS % (MANUAL) 6 %; LYMPHOCYTES % (MANUAL) 15 %; MONOCYTES % (MANUAL) 11 %; NEUTROPHILS % (MANUAL) 68 %; RBC MORPH NORMAL
[2021-02-13 11:31] LABS: VANCOMYCIN,TROUGH 11.9 UG/ML (10.0-20.0)
[2021-02-13 11:58] LABS: ERYTHROCYTE SEDIMENTATION RATE 10 MM/HR (0-30)
== END ==
LOC: LABNPT 10:53
PROVIDERS: ATTEND Internal Medicine Infectious Disease
DX: E11.621 Type 2 diabetes mellitus with foot ulcer (principal); I25.10 Atherosclerotic heart disease of native coronary artery without angina pectoris; I12.9 Hypertensive chronic kidney disease with stage 1 through stage 4 chronic kidney disease, or unspecified chronic kidney disease; N18.30 Chronic kidney disease, stage 3 unspecified
CPT/HCPCS: 80053; 80202; 85007; 85027; 85652; 86141

== ENCOUNTER → 2021-02-21 | Outpatient (CLI) | payer OTHER ==
[2021-02-21 09:57] LABS: BASOPHILS # (AUTO) 0.1 10^3/uL (0.0-0.1); BASOPHILS % (AUTO) 1 % (0-10); EOSINOPHILS # (AUTO) 0.3 10^3/uL (0.0-0.3); EOSINOPHILS % (AUTO) 5 % (0-10); HEMATOCRIT 43 % (40-54); HEMOGLOBIN 13.3 g/dL (13.3-17.7); LYMPHOCYTES # (AUTO) 2.1 10^3/uL (1.0-4.0); LYMPHOCYTES % (AUTO) 35 % (12-44); MEAN CORPUSCULAR HEMOGLOBIN 27 pg (25-34); MEAN CORPUSCULAR HGB CONC 31 g/dL (32-36); MEAN CORPUSCULAR VOLUME 87 fL (80-99); MEAN PLATELET VOLUME 11.2 fL (9.0-12.2); MONOCYTES # (AUTO) 0.6 10^3/uL (0.0-1.0); MONOCYTES % (AUTO) 10 % (0-12); NEUTROPHILS % (AUTO) 49 % (42-75); PLATELET COUNT 148 10^3/uL (130-400); WHITE BLOOD COUNT 6.1 10^3/uL (4.3-11.0)
[2021-02-21 10:07] LABS: BASOPHILS % (MANUAL) 1 %; EOSINOPHILS % (MANUAL) 5 %; LYMPHOCYTES % (MANUAL) 24 %; MONOCYTES % (MANUAL) 8 %; NEUTROPHILS % (MANUAL) 62 %; RBC MORPH NORMAL
[2021-02-21 10:15] LABS: ERYTHROCYTE SEDIMENTATION RATE 30 MM/HR (0-30)
[2021-02-21 10:16] LABS: ALBUMIN 3.5 GM/DL (3.2-4.5); BILIRUBIN,TOTAL 0.9 MG/DL (0.1-1.0); CALCIUM 8.3 MG/DL (8.5-10.1); CREATININE SERUM 1.28 MG/DL (0.60-1.30); POTASSIUM 4.5 MMOL/L (3.6-5.0); TOTAL PROTEIN 6.7 GM/DL (6.4-8.2)
== END ==
LOC: LABNPT 09:51
PROVIDERS: ATTEND Internal Medicine Infectious Disease
DX: Z01.89 Encounter for other specified special examinations (principal)
CPT/HCPCS: 80053; 80202; 85007; 85027; 85652; 86141

== ENCOUNTER → 2021-02-28 | Outpatient (CLI) | payer OTHER ==
[~2021-02-28] MED LIST changes: -ACYC400T PO; +ACYC400T21 PO
[2021-02-28 09:25] LABS: BASOPHILS % (AUTO) 1 % (0-10); EOSINOPHILS # (AUTO) 0.2 10^3/uL (0.0-0.3); EOSINOPHILS % (AUTO) 3 % (0-10); HEMATOCRIT 43 % (40-54); HEMOGLOBIN 13.8 g/dL (13.3-17.7); LYMPHOCYTES # (AUTO) 2.2 10^3/uL (1.0-4.0); LYMPHOCYTES % (AUTO) 39 % (12-44); MEAN CORPUSCULAR HEMOGLOBIN 28 pg (25-34); MEAN CORPUSCULAR HGB CONC 32 g/dL (32-36); MEAN CORPUSCULAR VOLUME 86 fL (80-99); MEAN PLATELET VOLUME 10.7 fL (9.0-12.2); MONOCYTES # (AUTO) 0.6 10^3/uL (0.0-1.0); MONOCYTES % (AUTO) 10 % (0-12); NEUTROPHILS # (AUTO) 2.8 10^3/uL (1.8-7.8); NEUTROPHILS % (AUTO) 48 % (42-75); PLATELET COUNT 164 10^3/uL (130-400); WHITE BLOOD COUNT 5.8 10^3/uL (4.3-11.0)
[2021-02-28 09:48] LABS: ALBUMIN 3.5 GM/DL (3.2-4.5); BILIRUBIN,TOTAL 0.7 MG/DL (0.1-1.0); CALCIUM 8.5 MG/DL (8.5-10.1); CREATININE SERUM 1.35 MG/DL (0.60-1.30); POTASSIUM 4.6 MMOL/L (3.6-5.0); TOTAL PROTEIN 6.8 GM/DL (6.4-8.2)
[2021-02-28 09:54] LABS: VANCOMYCIN,TROUGH 9.4 UG/ML (10.0-20.0)
[2021-02-28 09:55] LABS: ERYTHROCYTE SEDIMENTATION RATE 13 MM/HR (0-30)
== END ==
LOC: HH 09:20
PROVIDERS: ATTEND Internal Medicine Infectious Disease
DX: Z01.89 Encounter for other specified special examinations (principal)
CPT/HCPCS: 80053; 80202; 85025; 85652; 86141

== ENCOUNTER 2021-03-04 14:41 | Outpatient (RCR) | payer OTHER ==
[~2021-03-04] VITALS: Ht 193 cm; Wt 115.0 kg
[2021-03-04] MEDS ORDERED: NS IV SCH (15:00)
[2021-03-04] MEDS ORDERED: DAPTOMYCIN IV SCH (15:00)
[2021-03-04 16:10] VITALS: BP 136/89
== END 2021-06-02 | disposition home or self-care (01) ==
LOC: SDC 14:41
PROVIDERS: ATTEND Internal Medicine Infectious Disease
DX: M19.071 Primary osteoarthritis, right ankle and foot (principal); L08.9 Local infection of the skin and subcutaneous tissue, unspecified; B95.2 Enterococcus as the cause of diseases classified elsewhere
CPT/HCPCS: 96365

== ENCOUNTER 2021-09-02 09:57 | Outpatient (RCR) | payer OTHER ==
[~2021-09-02 09:57] MED LIST changes: -DOXY100C2 PO; +DOXY100C5 PO
== END 2021-09-13 16:16 | disposition home or self-care (01) ==
PROVIDERS: ATTEND Physician Assistant
DX: M54.16 Radiculopathy, lumbar region (principal); E11.9 Type 2 diabetes mellitus without complications; Z89.432 Acquired absence of left foot; Z98.1 Arthrodesis status; Z89.431 Acquired absence of right foot

== ENCOUNTER → 2021-12-26 | Outpatient (CLI) | payer OTHER ==
[~2021-12-26] MED LIST changes: -LISI-729 PO; +LISI5TAB20 PO; -POTA10TA36 PO; +POTA10TA37 PO
[2021-12-26 12:14] LABS: HEMATOCRIT 44 % (40-54); HEMOGLOBIN 14.4 g/dL (13.3-17.7); MEAN CORPUSCULAR HEMOGLOBIN 29 pg (25-34); MEAN CORPUSCULAR HGB CONC 33 g/dL (32-36); MEAN CORPUSCULAR VOLUME 88 fL (80-99); MEAN PLATELET VOLUME 10.4 fL (9.0-12.2); PLATELET COUNT 178 10^3/uL (130-400); WHITE BLOOD COUNT 5.8 10^3/uL (4.3-11.0)
--- NOTE | 2021-12-26 12:30 | Diagnostic Imaging Report ---
INDICATION: Post COVID, shortness of breath, wheezing. COMPARISON: 10/03/2020. TECHNIQUE: Three radiographs of the chest dated 12/26/2021. FINDINGS: The cardiac silhouette is enlarged, though stable. No significant pulmonary vascular congestion. Low lung volumes, though the lungs are clear. No pleural effusion. No pneumothorax. Scattered osseous degenerative changes without acute osseous abnormality. IMPRESSION: Low lung volumes without focal pulmonary opacity. Borderline cardiomegaly without pulmonary vascular congestion. Dictated by: Dictated on workstation # [id number]
[2021-12-26 12:34] LABS: ALBUMIN 3.7 GM/DL (3.2-4.5); BILIRUBIN,TOTAL 0.8 MG/DL (0.1-1.0); CREATININE SERUM 1.24 MG/DL (0.60-1.30); POTASSIUM 4.9 MMOL/L (3.6-5.0); TOTAL PROTEIN 7.6 GM/DL (6.4-8.2)
== END ==
LOC: RAD 11:50
PROVIDERS: ATTEND Nurse Practitioner Family
DX: I51.7 Cardiomegaly (principal); I50.9 Heart failure, unspecified; R06.02 Shortness of breath; R06.2 Wheezing; R07.89 Other chest pain; R09.89 Other specified symptoms and signs involving the circulatory and respiratory systems
CPT/HCPCS: 36415; 71046; 80053; 83880; 85027

== ENCOUNTER 2022-03-15 11:26 | Outpatient (CLI) | payer OTHER | END 2022-03-15 11:46 | disposition home or self-care (01) | LOC: SLEEP 11:26 | PROVIDERS: ATTEND Nurse Practitioner Family | DX: G47.00 Insomnia, unspecified (principal); I25.9 Chronic ischemic heart disease, unspecified; I10 Essential (primary) hypertension | CPT/HCPCS: G0399 ==

== ENCOUNTER → 2022-06-05 | Outpatient (CLI) | payer OTHER | LOC: LABNPT 08:18 | PROVIDERS: ATTEND Family Medicine | DX: Z01.812 Encounter for preprocedural laboratory examination (principal); U07.1 COVID-19 | CPT/HCPCS: 87636 ==

== ENCOUNTER 2022-07-08 20:39 | Outpatient (CLI) | payer OTHER ==
[~2022-07-08 20:39] MED LIST changes: +POTA-177 PO; -POTA10TA37 PO
== END 2022-07-09 06:15 | disposition home or self-care (01) ==
LOC: SLEEP 20:39
PROVIDERS: ATTEND Family Medicine
DX: G47.33 Obstructive sleep apnea (adult) (pediatric) (principal); G47.36 Sleep related hypoventilation in conditions classified elsewhere; I10 Essential (primary) hypertension
CPT/HCPCS: 95811

== ENCOUNTER 2022-07-21 10:55 | Outpatient (RCR) | payer OTHER ==
[2022-07-06 14:21] VITALS: BP 117/66
[2022-07-06 15:31] LABS: WHITE BLOOD COUNT 6.8 10^3/uL (4.3-11.0)
[2022-07-06 15:32] LABS: HEMATOCRIT 42 % (40-54); HEMOGLOBIN 14.1 g/dL (13.3-17.7); MEAN CORPUSCULAR HEMOGLOBIN 29 pg (25-34); MEAN CORPUSCULAR HGB CONC 34 g/dL (32-36); MEAN CORPUSCULAR VOLUME 88 fL (80-99); MEAN PLATELET VOLUME 10.1 fL (9.0-12.2); PLATELET COUNT 154 10^3/uL (130-400)
[2022-07-06 15:51] LABS: ERYTHROCYTE SEDIMENTATION RATE 8 MM/HR (0-30)
--- NOTE | 2022-07-06 15:56 | Diagnostic Imaging Report ---
INDICATION: CONFIRM PICC TIP PLACEMENT. TECHNIQUE: Single-view chest at 03:30 p.m. CORRELATION STUDY: 12/26/2021. FINDINGS: Left upper extremity central line is present with tip at the cavoatrial junction. Heart size is enlarged. Mediastinum is mildly prominent with tortuous course of the thoracic aorta. The lungs are clear with no consolidating infiltrate. There is no significant effusion or pneumothorax. IMPRESSION: 1. Left-sided central line tip appears to be projecting at the cavoatrial junction. 2. Cardiac enlargement, stable without failure. Dictated by: Dictated on workstation # [id number]
[2022-07-06 16:06] LABS: ALBUMIN 3.6 GM/DL (3.2-4.5); BILIRUBIN,TOTAL 1.2 MG/DL (0.1-1.0); CREATININE SERUM 1.12 MG/DL (0.60-1.30); POTASSIUM 4.2 MMOL/L (3.6-5.0); TOTAL PROTEIN 6.9 GM/DL (6.4-8.2)
[2022-07-06 18:10] VITALS: BP 117/66
[2022-07-07 08:45] VITALS: BP 117/66
[2022-07-17 07:23] VITALS: BP 139/92
[~2022-07-21] VITALS: Ht 188 cm; Wt 118.2 kg
[~2022-07-21 10:55] MED LIST changes: +VANCOMYCIN 1250 MG/NS 250 ML IVPB IV NR; +VANCOMYCIN 1500 MG/NS 500 ML IVPB IV ONE
[2022-07-21 11:20] VITALS: BP 116/82
== END 2022-07-21 11:53 | disposition home or self-care (01) ==
LOC: LAB 10:55
PROVIDERS: ATTEND Family Medicine
DX: Z45.2 Encounter for adjustment and management of vascular access device (principal); E11.9 Type 2 diabetes mellitus without complications; I11.9 Hypertensive heart disease without heart failure; L03.116 Cellulitis of left lower limb; L03.115 Cellulitis of right lower limb
CPT/HCPCS: 36569; 71045; 76937; 80053; 85027; 85652; 96365; 96366; C1751; 36415; 80202; 99211

== ENCOUNTER → 2022-09-04 | Outpatient (CLI) | payer OTHER ==
[~2022-09-04] MED LIST changes: -VANCOMYCIN 1250 MG/NS 250 ML IVPB IV NR; -VANCOMYCIN 1500 MG/NS 500 ML IVPB IV ONE
--- NOTE | 2022-09-04 09:58 | Diagnostic Imaging Report ---
INDICATION: Acute bronchitis and cough PA and lateral views of the chest obtained with comparison made to the study of 12/26/2021. There is suboptimal inspiration. No pneumothorax or consolidation is identified. There is no definite pleural fluid. IMPRESSION: No acute abnormality is detected. Note is made of lumbar degenerative disc disease and previous surgery. Dictated by: Dictated on workstation # [id number]
== END ==
LOC: RAD 09:22
PROVIDERS: ATTEND Nurse Practitioner Family
DX: J20.9 Acute bronchitis, unspecified (principal); M51.36 Other intervertebral disc degeneration, lumbar region; Z98.890 Other specified postprocedural states
CPT/HCPCS: 71046

== ENCOUNTER → 2023-02-01 | Outpatient (CLI) | payer OTHER ==
[~2023-02-01] MED LIST changes: +CLOP-31 PO; -CLOP75TA69 PO; +ENAL-66 PO; -ENLP5T PO
[2023-02-01 14:25] LABS: BASOPHILS % (AUTO) 1 % (0-10); EOSINOPHILS % (AUTO) 1 % (0-10); HEMATOCRIT 46 % (40-54); HEMOGLOBIN 15.7 g/dL (13.3-17.7); LYMPHOCYTES # (AUTO) 2.1 10^3/uL (1.0-4.0); LYMPHOCYTES % (AUTO) 37 % (12-44); MEAN CORPUSCULAR HEMOGLOBIN 31 pg (25-34); MEAN CORPUSCULAR HGB CONC 34 g/dL (32-36); MEAN CORPUSCULAR VOLUME 90 fL (80-99); MEAN PLATELET VOLUME 10.9 fL (9.0-12.2); MONOCYTES # (AUTO) 0.5 10^3/uL (0.0-1.0); MONOCYTES % (AUTO) 8 % (0-12); NEUTROPHILS # (AUTO) 3.1 10^3/uL (1.8-7.8); NEUTROPHILS % (AUTO) 54 % (42-75); PLATELET COUNT 154 10^3/uL (130-400); WHITE BLOOD COUNT 5.7 10^3/uL (4.3-11.0)
[2023-02-01 14:39] LABS: ALBUMIN 3.6 GM/DL (3.2-4.5); CALCIUM 9.1 MG/DL (8.5-10.1); CREATININE SERUM 1.35 MG/DL (0.60-1.30); POTASSIUM 4.4 MMOL/L (3.6-5.0)
[2023-02-01 14:44] LABS: ERYTHROCYTE SEDIMENTATION RATE 6 MM/HR (0-30)
== END ==
LOC: WOUNDCARE 13:02
PROVIDERS: ATTEND Family Medicine
DX: E11.622 Type 2 diabetes mellitus with other skin ulcer (principal); L97.212 Non-pressure chronic ulcer of right calf with fat layer exposed; E66.8 Other obesity; E11.65 Type 2 diabetes mellitus with hyperglycemia; E11.40 Type 2 diabetes mellitus with diabetic neuropathy, unspecified; Z79.4 Long term (current) use of insulin
CPT/HCPCS: 11042; 80053; 83036; 85025; 85652; 86141; A6260; G0463; 36415

== ENCOUNTER → 2023-02-08 | Outpatient (CLI) | payer OTHER | LOC: WOUNDCARE 10:28 | PROVIDERS: ATTEND Family Medicine | DX: L97.212 Non-pressure chronic ulcer of right calf with fat layer exposed (principal); E11.622 Type 2 diabetes mellitus with other skin ulcer; E66.8 Other obesity; E11.65 Type 2 diabetes mellitus with hyperglycemia; E11.40 Type 2 diabetes mellitus with diabetic neuropathy, unspecified; E11.52 Type 2 diabetes mellitus with diabetic peripheral angiopathy with gangrene | CPT/HCPCS: 11042; G0463 ==

== ENCOUNTER → 2023-02-13 | Outpatient (CLI) | payer OTHER ==
[~2023-02-13] MED LIST changes: +GADOTERATE 0.5 MMOL/ML (CLARISCAN) 20 ML VIAL IV ONE
--- NOTE | 2023-02-13 09:16 | Diagnostic Imaging Report ---
PROCEDURE: MR imaging right lower extremity with and without contrast. TECHNIQUE: Multiplanar, multisequence pre and post contrast-enhanced MR imaging of the right lower extremity was accomplished. 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 History of diabetes and toe amputation. COMPARISON: None FINDINGS: Imaging was obtained of the lower tibia and fibula. An MRI marker is placed at the lateral aspect of the right leg and ankle. There is motion artifact on multiple sequences. No acute fracture is seen. There is no significant bone marrow edema and there is no T1-weighted marrow replacement. No cortical erosions are seen. There is soft tissue edema and enhancement lateral to the distal fibula located about 4 cm proximal to the ankle joint. There appears to be enhancing edema tracking down to the cortex of the distal fibula, and there may be subtle underlying bone marrow edema at the lateral aspect of the fibula, but no erosion or T1-weighted marrow replacement is seen. There is no drainable rim-enhancing fluid collection. There is generalized muscular atrophy with mild intramuscular edema, which may be neurogenic. No deep soft tissue masses or fluid collections are seen. IMPRESSION: 1. Soft tissue ulceration at the lateral right leg just above the ankle. There appears to be mild underlying osteitis, without findings of osteomyelitis at this time. 2. Generalized muscular edema and atrophy, may be neurogenic. Dictated by: Dictated on workstation # [id number]
== END ==
LOC: RAD 07:40
PROVIDERS: ATTEND Family Medicine
DX: L97.212 Non-pressure chronic ulcer of right calf with fat layer exposed (principal); E11.622 Type 2 diabetes mellitus with other skin ulcer; E66.8 Other obesity; E11.65 Type 2 diabetes mellitus with hyperglycemia; E11.40 Type 2 diabetes mellitus with diabetic neuropathy, unspecified; E11.52 Type 2 diabetes mellitus with diabetic peripheral angiopathy with gangrene
CPT/HCPCS: 73720

== ENCOUNTER → 2023-02-15 | Outpatient (CLI) | payer OTHER ==
[~2023-02-15] MED LIST changes: -GADOTERATE 0.5 MMOL/ML (CLARISCAN) 20 ML VIAL IV ONE
== END ==
LOC: WOUNDCARE 09:54
PROVIDERS: ATTEND Family Medicine
DX: L97.212 Non-pressure chronic ulcer of right calf with fat layer exposed (principal); E11.622 Type 2 diabetes mellitus with other skin ulcer; E66.8 Other obesity; E11.65 Type 2 diabetes mellitus with hyperglycemia; E11.40 Type 2 diabetes mellitus with diabetic neuropathy, unspecified; E11.52 Type 2 diabetes mellitus with diabetic peripheral angiopathy with gangrene; I96 Gangrene, not elsewhere classified
CPT/HCPCS: 87070; 87077; 87205; G0463; 99213

== ENCOUNTER → 2023-02-22 | Outpatient (CLI) | payer OTHER | LOC: WOUNDCARE 09:56 | PROVIDERS: ATTEND Family Medicine | DX: L97.212 Non-pressure chronic ulcer of right calf with fat layer exposed (principal); E11.622 Type 2 diabetes mellitus with other skin ulcer; E66.8 Other obesity; E11.65 Type 2 diabetes mellitus with hyperglycemia; E11.40 Type 2 diabetes mellitus with diabetic neuropathy, unspecified; Z91.199 Patient's noncompliance with other medical treatment and regimen due to unspecified reason; E11.52 Type 2 diabetes mellitus with diabetic peripheral angiopathy with gangrene; I96 Gangrene, not elsewhere classified | CPT/HCPCS: 11042; A6021; G0463 ==

== ENCOUNTER → 2023-03-01 | Outpatient (CLI) | payer OTHER | LOC: WOUNDCARE 10:00 | PROVIDERS: ATTEND Family Medicine | DX: L97.212 Non-pressure chronic ulcer of right calf with fat layer exposed (principal); E11.622 Type 2 diabetes mellitus with other skin ulcer; E66.8 Other obesity; E11.65 Type 2 diabetes mellitus with hyperglycemia; E11.40 Type 2 diabetes mellitus with diabetic neuropathy, unspecified; Z91.198 Patient's noncompliance with other medical treatment and regimen for other reason; E11.52 Type 2 diabetes mellitus with diabetic peripheral angiopathy with gangrene | CPT/HCPCS: 11042; A6021; G0463 ==

== ENCOUNTER → 2023-03-08 | Outpatient (CLI) | payer OTHER | LOC: WOUNDCARE 10:02 | PROVIDERS: ATTEND Family Medicine | DX: I96 Gangrene, not elsewhere classified (principal); L97.212 Non-pressure chronic ulcer of right calf with fat layer exposed; E11.622 Type 2 diabetes mellitus with other skin ulcer; E11.65 Type 2 diabetes mellitus with hyperglycemia; E66.8 Other obesity; E11.40 Type 2 diabetes mellitus with diabetic neuropathy, unspecified; Z91.198 Patient's noncompliance with other medical treatment and regimen for other reason; Z68.30 Body mass index [BMI] 30.0-30.9, adult | CPT/HCPCS: 11104; 87070; 87077; 87205; G0463; 87186 ==

== ENCOUNTER → 2023-03-16 | Outpatient (CLI) | payer OTHER | LOC: WOUNDCARE 09:32 | PROVIDERS: ATTEND Family Medicine | DX: L97.212 Non-pressure chronic ulcer of right calf with fat layer exposed (principal); E11.622 Type 2 diabetes mellitus with other skin ulcer; E66.8 Other obesity; E11.65 Type 2 diabetes mellitus with hyperglycemia; E11.40 Type 2 diabetes mellitus with diabetic neuropathy, unspecified; Z91.198 Patient's noncompliance with other medical treatment and regimen for other reason; E11.52 Type 2 diabetes mellitus with diabetic peripheral angiopathy with gangrene | CPT/HCPCS: 11042; A6197; G0463 ==

== ENCOUNTER → 2023-03-22 | Outpatient (CLI) | payer OTHER | LOC: WOUNDCARE 10:08 | PROVIDERS: ATTEND Family Medicine | DX: I96 Gangrene, not elsewhere classified (principal); E11.622 Type 2 diabetes mellitus with other skin ulcer; E11.65 Type 2 diabetes mellitus with hyperglycemia; E11.40 Type 2 diabetes mellitus with diabetic neuropathy, unspecified; L97.212 Non-pressure chronic ulcer of right calf with fat layer exposed; A49.9 Bacterial infection, unspecified; E66.8 Other obesity; Z91.198 Patient's noncompliance with other medical treatment and regimen for other reason; Z68.30 Body mass index [BMI] 30.0-30.9, adult | CPT/HCPCS: 11042; G0463 ==

== ENCOUNTER → 2023-03-29 | Outpatient (CLI) | payer OTHER | LOC: WOUNDCARE 09:57 | PROVIDERS: ATTEND Family Medicine | DX: E11.622 Type 2 diabetes mellitus with other skin ulcer (principal); L97.212 Non-pressure chronic ulcer of right calf with fat layer exposed; E66.8 Other obesity; E11.65 Type 2 diabetes mellitus with hyperglycemia; E11.40 Type 2 diabetes mellitus with diabetic neuropathy, unspecified; E11.52 Type 2 diabetes mellitus with diabetic peripheral angiopathy with gangrene; Z91.198 Patient's noncompliance with other medical treatment and regimen for other reason; A49.9 Bacterial infection, unspecified | CPT/HCPCS: 11042; G0463 ==

== ENCOUNTER → 2023-04-05 | Outpatient (CLI) | payer OTHER | LOC: WOUNDCARE 10:08 | PROVIDERS: ATTEND Family Medicine | DX: L97.212 Non-pressure chronic ulcer of right calf with fat layer exposed (principal); E11.622 Type 2 diabetes mellitus with other skin ulcer; E66.8 Other obesity; E11.65 Type 2 diabetes mellitus with hyperglycemia; E11.40 Type 2 diabetes mellitus with diabetic neuropathy, unspecified; Z91.198 Patient's noncompliance with other medical treatment and regimen for other reason; A49.9 Bacterial infection, unspecified; E11.52 Type 2 diabetes mellitus with diabetic peripheral angiopathy with gangrene; I96 Gangrene, not elsewhere classified | CPT/HCPCS: 99213 ==

== ENCOUNTER → 2023-04-19 | Outpatient (CLI) | payer OTHER | LOC: WOUNDCARE 09:58 | PROVIDERS: ATTEND Family Medicine | DX: E11.622 Type 2 diabetes mellitus with other skin ulcer (principal); L97.212 Non-pressure chronic ulcer of right calf with fat layer exposed; E11.65 Type 2 diabetes mellitus with hyperglycemia; E11.40 Type 2 diabetes mellitus with diabetic neuropathy, unspecified; E11.52 Type 2 diabetes mellitus with diabetic peripheral angiopathy with gangrene; E66.8 Other obesity | CPT/HCPCS: 99212 ==

== ENCOUNTER 2023-04-25 07:10 | Observation (INO) | payer OTHER ==
[~2023-04-25] VITALS: Ht 193 cm; Wt 108.0 kg
--- NOTE | 2023-04-25 07:20 | ED Chest Pain ---
General Chief Complaint: Chest Pain Stated Complaint: CHEST PAINS History of Present Illness Date Seen by Provider: Apr 25, 2023 Time Seen by Provider: 07:15 Initial Comments 62-year-old male presents with chest pain in his left chest and his back. Is been going on for at least a day to 2 days. Is constant. He does get a little bit hot and cold. Pain radiates little bit down his left arm. He does have a cardiac history with stents previously. Allergies and Home Medications Allergies Coded Allergies: linezolid (Verified Allergy, Unknown, 06/17/19) Patient Home Medication List Home Medication List Reviewed: Yes Acetaminophen (Tylenol Extra Strength) 500 Mg Tablet, 1,000 MG PO HS, (Reported) Entered as Reported by: DINESH BARKSDALE on 01/02/19 1409 Albuterol Sulfate (Albuterol Sulfate) 2.5 Mg/3 Ml Vial.neb, 3 ML NEB Q4 -6H PRN for SHORTNESS OF BREATH, (Reported) Entered as Reported by: REDDY WANG on 10/01/20 1443 Aspirin (Aspirin) 81 Mg Tab.chew, 81 MG PO DAILY, (Reported) Entered as Reported by: DINESH BARKSDALE on 06/17/19 0904 Atorvastatin Calcium (Atorvastatin Calcium) 80 Mg Tablet, 80 MG PO DAILY, (Reported) Entered as Reported by: DINESH BARKSDALE on 04/24/19 1531 Carvedilol (Coreg) 6.25 Mg Tablet, 6.25 MG PO BID, (Reported) Entered as Reported by: REDDY WANG on 09/20/20 1306 Clonazepam (Clonazepam) 1 Mg Tablet, 2 MG PO HS, (Reported) Entered as Reported by: GIUSEPPE MIRANDA on 01/29/17 1551 Clopidogrel Bisulfate (Plavix) 75 Mg Tablet, 75 MG PO DAILY, (Reported) Entered as Reported by: DINESH BARKSDALE on 06/17/19 0904 Duloxetine HCl (Duloxetine HCl) 30 Mg Capsule.dr, 30 MG PO BID, (Reported) Entered as Reported by: REDDY WANG on 10/01/20 1443 Ferrous Sulfate (Ferrous Sulfate) 325 Mg Tablet, 325 MG PO BID WITH MEALS Prescribed by: ROSA MARIA PRADO on 09/21/20 0926 Finasteride (Finasteride) 5 Mg Tablet, 5 MG PO HS, (Reported) Entered as Reported by: REDDY WANG on 09/20/20 1306 Furosemide (Lasix) 20 Mg Tablet, 20 MG PO UD Prescribed by: ROSA MARIA PRADO on 10/03/20 1053 Insulin Aspart (Novolog Flexpen) 300 Units/3 Ml Solution, 10 UNITS SC TIDAC, (Reported) Entered as Reported by: DINESH BARKSDALE on 01/02/19 1402 Insulin Degludec (Tresiba Flextouch U-200) 200 Unit/1 Ml Insuln.pen, 50 UNITS SC DAILY, (Reported) Entered as Reported by: DINESH BARKSDALE on 01/02/19 1402 Losartan Potassium (Losartan Potassium) 25 Mg Tablet, 25 MG PO DAILY Prescribed by: JONH PATEL on 10/02/20 1255 Nitroglycerin (Nitroglycerin) 0.4 Mg Tab.subl, 0.4 MG SL UD PRN for CHEST PAIN (ANGINA), (Reported) Entered as Reported by: REDDY WANG on 10/01/20 1443 Pantoprazole Sodium (Pantoprazole Sodium) 40 Mg Tablet.dr, 40 MG PO DAILY Prescribed by: ROSA MARIA PRADO on 09/21/20 0926 Potassium Chloride (Potassium Chloride) 10 Meq Tab.er.prt, 10 MEQ PO UD Prescribed by: ROSA MARIA PRADO on 10/03/20 1053 Ranolazine (Ranolazine ER) 500 Mg Tab.er.12h, 500 MG PO BID, (Reported) Entered as Reported by: DINESH BARKSDALE on 06/17/19 0904 Review of Systems Review of Systems Constitutional: chills Respiratory: See HPI Cardiovascular: See HPI, Chest Pain Gastrointestinal: No Symptoms Reported Genitourinary: No Symptoms Reported Musculoskeletal: no symptoms reported Skin: no symptoms reported Psychiatric/Neurological: No Symptoms Reported Past Ofymzmq-Syinpj-Xynmyp Hx Immunizations Up To Date Tetanus Booster (TDap): Unknown PED Vaccines UTD: No Seasonal Allergies Seasonal Allergies: No Past Medical History Surgeries: Yes (ACL REPAIR;WRIST SURGERY;CARDIAC CATH--STENTS; BILAT FOREFOOT AMPUTATION) Abdominal, Amputation, Appendectomy, Cardiac, Coronary Stent, Gallbladder, Orthopedic, Tonsillectomy Respiratory: No Currently Using CPAP: No Currently Using BIPAP: No Cardiac: Yes (CARDIAC CATHS--STENTS X 3-OM2, LAC, RCA) Cardiomyopathy, Coronary Artery Disease, Heart Attack, High Cholesterol, Hypertension Neurological: Yes Neuropathy, Stroke Reproductive Disorders: No Sexually Transmitted Disease: No HIV/AIDS: No Genitourinary: Yes Kidney Stones Gastrointestinal: Yes Abdominal Hernia Musculoskeletal: Yes (OSTEOMYELITIS WITH ALL TOES AMPUTATED; BACK FUSION X 3) Degenerate Disk Disease, Arthritis, Chronic Back Pain Endocrine: Yes Diabetes, Insulin dep HEENT: Yes (R EYE BLOOD CLOT/PARTIAL BLINDNESS) Loss of Vision: Denies Hearing Impairment: Denies Cancer: No Psychosocial: Yes Anxiety, Depression Integumentary: Yes (FOOT ULCERS/OSTEOMYELITIS; MULTIPLE SURGICAL WOUND INFECTIONS) Blood Disorders: No Adverse Reaction/Blood Tranf: No Family Medical History Family history: Cardiovascular disease 19 FATHER Family history: Diabetes mellitus 19 MOTHER COPD, Diabetes, Hypertension PSH: -BILATERAL KNEE SCOPES, WITH OPEN LEFT ACL REPAIR -ALL TOES AMPUTATED BILATERAL FEET -MULTIPLE DEBRIDEMENTS OF FOOT ULCERS -MULTIPLE CARDIAC CATHS-- ANGIOPLASTIES AND STENTS X 3--STENT TO [facility] 05/2018, THEN TRANSFERED TO [facility] AND HAD STENT TO LAD ( COMPLICATED BY SEPSIS DUE TO LEFT FOOT ULCER AND WAS INTUBATED AND HAD PROLONGED HOSPITALIZATIONS/REHAB, AND HAD TOE AMPUTATION) ; HAD STENT TO RCA 01/02/19 -BACK SURGERY/FUSION X 3 -TONSILLECTOMY -APPENDECTOMY -CHOLECYSTECTOMY -HERNIA REPAIR WITH INFECTION/COMPLICATIONS -PORT RIGHT CHEST PLACED/REMOVED DUE TO INFECTION -MANY TEETH REMOVED Physical Exam Vital Signs Vital Signs - First Documented 04/25/23 04/25/23 07:12 09:00 Temp 37.0 Pulse 75 Resp 18 B/P (MAP) 143/91 (108) Pulse Ox 95 O2 Delivery Room Air Capillary Refill : Height, Weight, BMI Height: 6'4.00" Weight: 240lbs. 3.0oz. 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 Norm as Tested Skin: Other (Old scars lower abdominal wall, right chest) Progress/Results/Core Measures Results/Orders Lab Results Laboratory Tests Test 04/25/23 07:15 04/25/23 09:06 Range/Units White Blood Count 6.5 4.3-11.0 10^3/uL Red Blood Count 5.33 4.30-5.52 10^6/uL Hemoglobin 16.5 13.3-17.7 g/dL Hematocrit 49 40-54 % Mean Corpuscular Volume 91 80-99 fL Mean Corpuscular Hemoglobin 31 25-34 pg Mean Corpuscular Hemoglobin Concent 34 32-36 g/dL Red Cell Distribution Width 13.0 10.0-14.5 % Platelet Count 147 130-400 10^3/uL Mean Platelet Volume 10.7 9.0-12.2 fL Immature Granulocyte % (Auto) 0 % Neutrophils (%) (Auto) 55 42-75 % Lymphocytes (%) (Auto) 36 12-44 % Monocytes (%) (Auto) 8 0-12 % Eosinophils (%) (Auto) 1 0-10 % Basophils (%) (Auto) 1 0-10 % Neutrophils # (Auto) 3.5 1.8-7.8 10^3/uL Lymphocytes # (Auto) 2.3 1.0-4.0 10^3/uL Monocytes # (Auto) 0.5 0.0-1.0 10^3/uL Eosinophils # (Auto) 0.1 0.0-0.3 10^3/uL Basophils # (Auto) 0.0 0.0-0.1 10^3/uL Immature Granulocyte # (Auto) 0.0 0.0-0.1 10^3/uL D-Dimer 0.35 0.00-0.49 UG/ML Sodium Level 139 135-145 MMOL/L Potassium Level 4.3 3.6-5.0 MMOL/L Chloride Level 101 98-107 MMOL/L Carbon Dioxide Level 30 21-32 MMOL/L Anion Gap 8 5-14 MMOL/L Blood Urea Nitrogen 14 7-18 MG/DL Creatinine 1.34 H 0.60-1.30 MG/DL Estimat Glomerular Filtration Rate 61 BUN/Creatinine Ratio 10 Glucose Level 298 H 70-105 MG/DL Calcium Level 9.0 8.5-10.1 MG/DL Corrected Calcium 9.2 8.5-10.1 MG/DL Magnesium Level 1.8 1.6-2.4 MG/DL Total Bilirubin 1.2 H 0.1-1.0 MG/DL Aspartate Amino Transf (AST/SGOT) 26 5-34 U/L Alanine Aminotransferase (ALT/SGPT) 40 0-55 U/L Alkaline Phosphatase 102 40-136 U/L Troponin I < 0.028 < 0.028 <0.028 NG/ML B-Type Natriuretic Peptide 86.4 <100.0 PG/ML Total Protein 7.2 6.4-8.2 GM/DL Albumin 3.8 3.2-4.5 GM/DL My Orders Orders - LANDRY,MICHELE L DO Ekg Tracing (04/25/23 07:18) Bnp Moore (04/25/23 07:20) Cbc With Automated Diff (04/25/23 07:20) Comprehensive Metabolic Panel (04/25/23 07:20) Fibrin Degradation Products (04/25/23 07:20) Magnesium (04/25/23 07:20) Troponin I Moore (04/25/23 07:20) Chest Pa/Lat (2 View) (04/25/23 07:20) Ketorolac Injection (Toradol Injection) (04/25/23 08:02) Nitroglycerin 0.4 Mg Btl 25's (Nitrostat (04/25/23 09:00) Fentanyl Inj (Sublimaze Injection) (04/25/23 09:00) Troponin I Shanna (04/25/23 09:06) Acetaminophen Tablet (Tylenol Tablet) (04/25/23 09:10) Ns Iv 1000 Ml (Sodium Chloride 0.9%) (04/25/23 09:10) Ed Admission (Communication) (04/25/23 09:16) Medications Given in ED Current Medications Medications Dose Ordered Sig/Aylin Route Start Time Stop Time Status Last Admin Dose Admin Acetaminophen 500 mg STK-MED ONCE .ROUTE 04/25/23 09:10 04/25/23 09:13 DC 04/25/23 09:14 1,000 MG Nitroglycerin 1 TAB Q 5 MIN X 3 NEEDED PRN SL 04/25/23 09:00 04/25/23 09:25 0.4 MG Sodium Chloride 1,000 ml @ ud STK-MED ONCE .ROUTE 04/25/23 09:10 04/25/23 09:13 DC 6/21/23 09:14 1,000 MLS/HR Vital Signs/I&O 04/25/23 04/25/23 04/25/23 04/25/23 07:12 09:00 09:13 09:19 Temp 37.0 Pulse 75 58 61 64 Resp 18 14 14 14 B/P (MAP) 143/91 (108) 161/96 (117) 132/90 (104) 125/93 (104) Pulse Ox 95 95 95 O2 Delivery Room Air Room Air Room Air 04/25/23 09:24 Pulse 67 Resp 14 B/P (MAP) 123/86 (98) Pulse Ox 95 O2 Delivery Room Air Progress Progress Note : Progress Note Patient diagnostic studies ordered reviewed and interpreted by me. Patient's EKG was reviewed and shows no acute changes from EKG in 2019. Patient's labs were reviewed reviewed shows negative D-dimer negative troponin no acute findings. Patient's chest x-ray shows no acute findings. Patient continues to have chest pressure and pain with radiation. I did call and discussed case with Dr. Patel leather skinner since he has an extensive cardiac history. Dr. Patel, came and saw patient in the ER. We will admit to Dr. Bullock hospitalist with Dr. Patel consulting. Patient to be treated initially conservatively with possible cardiac cath. Patient was transferred to the floor in stable condition. Patient is at increased risk of morbidity and mortality based on his social determinants of health. Initial ECG Impression Date: Apr 25, 2023 Initial ECG Impression Time: 07:20 Initial ECG Rate: 72 Initial ECG Rhythm: Normal Sinus Initial ECG Comparisson: Unchanged Comment similar to ekg in 2019, old anteroseptal infarct, no acute st changes or elevation noted. Diagnostic Imaging Diagonstic Imaging: Xray Plain Films/CT/US/NM/MRI: chest Comments Date of Exam:04/25/23 CHEST PA/LAT (2 VIEW) PATIENT HISTORY: Chest pain. TECHNIQUE: Two views of the chest. COMPARISON: 09/04/2022 FINDINGS: The lung volumes are mildly low. No focal consolidation is seen. No large pleural effusion or pneumothorax is seen. The cardiomediastinal silhouette is normal in size and contour. No acute osseous abnormality is seen. IMPRESSION: No acute pulmonary abnormality seen. Reviewed: Reviewed by Me, Reviewed/Discussed Departure Impression Primary Impression: Chest pain Qualified Codes: R07.9 - Chest pain, unspecified Disposition: 09 ADMITTED INPATIENT Condition: Stable Admissions Decision to Admit Reason: Admit from ER (General) Decision to Admit/Date: Apr 25, 2023 Time/Decision to Admit Time: 08:59 Departure-Patient Inst. Referrals: ROSA MARIA PRADO MD (PCP/Family) Primary Care Physician MICHELE LANDRY DO Apr 25, 2023 07:20
[2023-04-25 07:29] LABS: BASOPHILS % (AUTO) 1 % (0-10); EOSINOPHILS # (AUTO) 0.1 10^3/uL (0.0-0.3); EOSINOPHILS % (AUTO) 1 % (0-10); HEMATOCRIT 49 % (40-54); HEMOGLOBIN 16.5 g/dL (13.3-17.7); LYMPHOCYTES # (AUTO) 2.3 10^3/uL (1.0-4.0); LYMPHOCYTES % (AUTO) 36 % (12-44); MEAN CORPUSCULAR HEMOGLOBIN 31 pg (25-34); MEAN CORPUSCULAR HGB CONC 34 g/dL (32-36); MEAN CORPUSCULAR VOLUME 91 fL (80-99); MEAN PLATELET VOLUME 10.7 fL (9.0-12.2); MONOCYTES # (AUTO) 0.5 10^3/uL (0.0-1.0); MONOCYTES % (AUTO) 8 % (0-12); NEUTROPHILS # (AUTO) 3.5 10^3/uL (1.8-7.8); NEUTROPHILS % (AUTO) 55 % (42-75); PLATELET COUNT 147 10^3/uL (130-400); WHITE BLOOD COUNT 6.5 10^3/uL (4.3-11.0)
--- NOTE | 2023-04-25 07:38 | Diagnostic Imaging Report ---
PATIENT HISTORY: Chest pain. TECHNIQUE: Two views of the chest. COMPARISON: 09/04/2022 FINDINGS: The lung volumes are mildly low. No focal consolidation is seen. No large pleural effusion or pneumothorax is seen. The cardiomediastinal silhouette is normal in size and contour. No acute osseous abnormality is seen. IMPRESSION: No acute pulmonary abnormality seen. Dictated by: Dictated on workstation # [id number]
[2023-04-25 07:40] LABS: ALBUMIN 3.8 GM/DL (3.2-4.5); CHLORIDE 101 MMOL/L (98-107); POTASSIUM 4.3 MMOL/L (3.6-5.0); SODIUM 139 MMOL/L (135-145)
[2023-04-25 07:42] LABS: GLUCOSE 298 MG/DL (70-105); TOTAL PROTEIN 7.2 GM/DL (6.4-8.2)
[2023-04-25 07:43] LABS: CARBON DIOXIDE 30 MMOL/L (21-32)
[2023-04-25 07:44] LABS: BILIRUBIN,TOTAL 1.2 MG/DL (0.1-1.0)
[2023-04-25 07:46] LABS: ALKALINE PHOSPHATASE 102 U/L (40-136); CREATININE SERUM 1.34 MG/DL (0.60-1.30); GFR ESTIMATED 61
[2023-04-25 07:47] LABS: BUN/CREATININE RATIO 10
[2023-04-25 07:49] LABS: ALANINE AMINOTRANSFERASE 40 U/L (0-55); MAGNESIUM 1.8 MG/DL (1.6-2.4)
[2023-04-25] MEDS ORDERED: KETOROLAC 30 MG/ML VIAL IVP STA (08:02)
[2023-04-25] MEDS ORDERED: fentaNYL INJ 100 MCG/2 ML AMP IVP ONE (09:00)
[2023-04-25] MEDS ORDERED: NS IV 1000 ML 1,000 ML ONE ×2 (09:10→11:41)
[2023-04-25] MEDS ORDERED: ACETAMINOPHEN 500 MG TAB (TYLENOL) ONE (09:10)
[2023-04-25] MEDS: NITROGLYCERIN 0.4 MG SL TABS BTL 25'S SL PRN ×3 (09:13→09:25)
--- NOTE | 2023-04-25 09:18 | History & Physical ---
History of Present Illness HPI/Chief Complaint Chief complaint: Unstable angina HPI: This is a 62-year-old male with history of CAD and stents who presented to the ER with chest pain found to be suspicious for acute coronary syndrome and unstable angina. Nitroglycerin did not resolve the pain so he was taken to cardiac catheterization lab showing stable disease and no stenosis. He will go home today. I did confer with Dr. Patel. Source: patient Exam Limitations: no limitations Date Seen 04/25/23 Time Seen by a Provider: 11:00 Attending Physician Melida Ha MD PCP Admitting Physician: Attending Physician: Referring Physician Date of Admission Home Medications & Allergies Home Medications Reviewed patient Home Medication Reconciliation performed by pharmacy medication reconciliations health care sanitary technician and/or nursing. Patients Allergies have been reviewed. Allergies Allergies Coded Allergies linezolid (Verified Allergy, Unknown, 06/17/19) Past Dktklmu-Cnckgi-Tsqbhf Hx Past Med/Social Hx: Reviewed Nursing Past Med/Soc Hx, Reviewed and Corrections made Patient Social History Marrital Status: Employed/Student: employed Alcohol Use: Denies Use Smoking Status: Never a Smoker 2nd Hand Smoke Exposure: No Recent Hopitalizations: Yes (Aug FOOT PARTIAL LEFT FOOT AMPUTATION) Immunizations Up To Date Tetanus Booster (TDap): Unknown Pediatric: No Date of Pneumonia Vaccine: Aug 05, 2020 Date of Influenza Vaccine: Aug 05, 2020 Seasonal Allergies Seasonal Allergies: No Past Medical History Surgeries: Abdominal, Amputation, Appendectomy, Cardiac, Coronary Stent, Gallbladder, Orthopedic, Tonsillectomy Currently Using CPAP: No Currently Using BIPAP: No Cardiac: Cardiomyopathy, Coronary Artery Disease, Heart Attack, High Cholesterol, Hypertension Neurological: Neuropathy, Stroke Reproductive: No Sexually Transmitted Disease: No HIV/AIDS: No Genitourinary: Kidney Stones Gastrointestinal: Abdominal Hernia Musculoskeletal: Degenerate Disk Disease, Arthritis, Chronic Back Pain Endocrine: Diabetes, Insulin dep Loss of Vision: Denies Hearing Impairment: Denies Psychosocial: Anxiety, Depression History of Blood Disorders: No Adverse Reaction to Blood Tafoya: No Family History Family history: Cardiovascular disease 19 FATHER Family history: Diabetes mellitus 19 MOTHER COPD, Diabetes, Hypertension PSH: -BILATERAL KNEE SCOPES, WITH OPEN LEFT ACL REPAIR -ALL TOES AMPUTATED BILATERAL FEET -MULTIPLE DEBRIDEMENTS OF FOOT ULCERS -MULTIPLE CARDIAC CATHS-- ANGIOPLASTIES AND STENTS X 3--STENT TO [facility] HERE 05/2018, THEN TRANSFERED TO [facility] AND HAD STENT TO LAD ( COMPLICATED BY SEPSIS DUE TO LEFT FOOT ULCER AND WAS INTUBATED AND HAD PROLONGED HOSPITALIZATIONS/REHAB, AND HAD TOE AMPUTATION) ; HAD STENT TO RCA 01/02/19 -BACK SURGERY/FUSION X 3 -TONSILLECTOMY -APPENDECTOMY -CHOLECYSTECTOMY -HERNIA REPAIR WITH INFECTION/COMPLICATIONS -PORT RIGHT CHEST PLACED/REMOVED DUE TO INFECTION -MANY TEETH REMOVED Review of Systems Constitutional: see HPI, malaise, weakness Respiratory: short of breath Cardiovascular: chest pain Physical Exam Physical Exam Vital Signs Vital Signs - First Documented 04/25/23 04/25/23 07:12 09:00 Temp 37.0 Pulse 75 Resp 18 B/P (MAP) 143/91 (108) Pulse Ox 95 O2 Delivery Room Air Capillary Refill : Less Than 3 Seconds Height, Weight, BMI Height: 6'4.00" Weight: 240lbs. 3.0oz. 108.741560iu; 28.00 BMI Method:Stated General Appearance: No Apparent Distress, Chronically ill Eyes: Bilateral Eye Normal Inspection, Bilateral Eye PERRL HEENT: PERRL/EOMI, TMs Normal, Normal ENT Inspection, Pharynx Normal Neck: Full Range of Motion, Normal Inspection, Non Tender, Supple, Carotid Bruit Respiratory: Lungs Clear, Normal Breath Sounds Cardiovascular: Regular Rate, Rhythm, No Edema Gastrointestinal: Non Tender, Soft Back: Normal Inspection, No CVA Tenderness, No Vertebral Tenderness Extremity: Normal Capillary Refill, Normal Inspection, Normal Range of Motion, Non Tender, No Calf Tenderness, No Pedal Edema Neurologic/Psychiatric: Alert, Oriented x3, No Motor/Sensory Deficits, Normal Mood/Affect, admissions dean II-XII Norm as Tested Skin: Other (Old scars lower abdominal wall, right chest) Lymphatic: No Adenopathy Results Results/Procedures Labs Laboratory Tests 04/25/23 07:15 Patient resulted labs reviewed. Assessment/Plan Admission Diagnosis Assessment: Chest pain suspicious for ACS CAD previous stents Cardiomyopathy Hypertension Plan: Cardiac catheterization Supportive care Admission Status: Observation Clinical Quality Measures AMI/AHF: ASA po Prior to arrival: NAKUL Becerra DO Apr 25, 2023 09:18
[2023-04-25] MEDS ORDERED: morphine INJ 4 MG/ML 1 ML (VIAL/SYRINGE) ONE (10:14)
[2023-04-25] MEDS ORDERED: polyethylene glycoL POWDER 17 GM (MIRALAX) PACK PO PRN (10:45)
[2023-04-25] MEDS ORDERED: LACTULOSE SYRUP 10GM/15ML (ENULOSE) 30ML UDC PO PRN (10:45)
[2023-04-25] MEDS ORDERED: diphenhydrAMINE 25 MG TAB (BENADRYL) PO PRN (10:45)
[2023-04-25] MEDS ORDERED: MELATONIN 3 MG TABLET PO PRN (10:45)
[2023-04-25] MEDS ORDERED: ONDANSETRON 4 MG (ZOFRAN) ORAL DISSOLVE TAB PO PRN (10:45)
[2023-04-25] MEDS ORDERED: CALCIUM CARBONATE 500 MG (TUMS) TAB.CHEW PO PRN (10:45)
[2023-04-25] MEDS ORDERED: ONDANSETRON 4 MG/2 ML (SDV) Z0FRAN IV PRN (10:45)
[2023-04-25] MEDS ORDERED: PATIENT MAY USE OWN MEDS, ALL PO SCH (10:45)
[2023-04-25] MEDS ORDERED: ACETAMINOPHEN 325 MG TABLET PO PRN (10:45)
[2023-04-25] MEDS ORDERED: ANTACID SUSP 30 ML UDC (MYLANTA) PO PRN (10:45)
[2023-04-25] MEDS ORDERED: NS IV 1000 ML 1,000 ML IV SCH ×2 (10:45→13:45)
[2023-04-25] MEDS ORDERED: diphenhydrAMINE 50 MG/ML INJ (BENADRYL) IVP PRN (10:45)
[2023-04-25] MEDS ORDERED: BISACODYL 10 MG SUPP (DULCOLAX) PR PRN (10:45)
[2023-04-25] MEDS ORDERED: NITROGLYCERIN 0.4 MG SL TABS BTL 25'S SL PRN (10:45)
[2023-04-25] MEDS ORDERED: MILK OF MAGNESIA 400 MG/5 ML 30 ML UDC PO PRN (10:45)
[2023-04-25] MEDS ORDERED: morphine INJ 4 MG/ML 1 ML (VIAL/SYRINGE) IV PRN (10:45)
--- NOTE | 2023-04-25 11:26 | Tele-ICU Consult ---
History of Present Illness History of Present Illness Date Seen by Provider: Apr 25, 2023 Time Seen by Provider: 11:25 Date of Admission History of Present Illness (Tele-ICU Physician , consultation as per request of PCP Service provided via interactive audio and video telecommunications E-CARE system to a patient admitted to ICU bed in [facility]. Available chart/ vitals / labs / Images reviewed H&P is from ER notes Patient's information available about PMH, Shx, Fhx allergy reviewed inEMR. ROS as per chart and RN report Now in ICU, hemodynamically stable Video assessment done using teleICU camera, rest of exam as per RN Discussed with RN. Hospital course: 04/25-- to ER with chest tpain - suspecteed ACS A/P Chest pain - suspecteed ACS - cards consulted DM - ISS CKD - cont gentle hydration anticipating contrast Lines : periph , (Central Line Necessity Reviewed) Romero: OG: Nutrition: npo Analgesia: Anxiety/ delirium VTE Prophylaxis: scd Stress Ulcer Prophylaxis: na Plans in collaboration with bedside consultants and IM MDs. Discussed with RN to reach out if any questions or concerns A total of 10 minutes of critical care time was devoted to this patient today, required to treat and/or prevent further deterioration of critical care condition ( as above ) . I am remotely monitoring this patient from another state. I am unable to do the bedside exam, and history/physical and pertinent information is taken from other notes in the computer and bedside staff. . Allergies and Home Medications Allergies Coded Allergies: linezolid (Verified Allergy, Unknown, 06/17/19) Home Medications Acetaminophen 500 Mg Tablet, 1,000 MG PO HS, (Reported) TAKES 2 (500MG) TABLETS Albuterol Sulfate 2.5 Mg/3 Ml Vial.neb, 3 ML NEB Q4 -6H PRN for SHORTNESS OF BREATH, (Reported) Aspirin 81 Mg Tab.chew, 81 MG PO DAILY, (Reported) Atorvastatin Calcium 80 Mg Tablet, 80 MG PO DAILY, (Reported) Carvedilol 6.25 Mg Tablet, 6.25 MG PO BID, (Reported) Clonazepam 1 Mg Tablet, 2 MG PO HS, (Reported) TAKES 2 (1 MG) TABLETS Clopidogrel Bisulfate 75 Mg Tablet, 75 MG PO DAILY, (Reported) Duloxetine HCl 30 Mg Capsule.dr, 30 MG PO BID, (Reported) Ferrous Sulfate 325 Mg Tablet, 325 MG PO BID WITH MEALS Prescribed by: ROSA MARIA PRADO on 09/21/20925 Finasteride 5 Mg Tablet, 5 MG PO HS, (Reported) Furosemide 20 Mg Tablet, 20 MG PO UD ONE TAB DAILY ON SUN//SUN/SUN AND ONE TAB TWICE DAILY ON Prescribed by: ROSA MARIA PRADO on 10/03/20 1053 Insulin Aspart 300 Units/3 Ml Solution, 10 UNITS SC TIDAC, (Reported) Insulin Degludec 200 Unit/1 Ml Insuln.pen, 50 UNITS SC DAILY, (Reported) Losartan Potassium 25 Mg Tablet, 25 MG PO DAILY Prescribed by: JONH MARIA on 10/02/20 1255 Nitroglycerin 0.4 Mg Tab.subl, 0.4 MG SL UD PRN for CHEST PAIN (ANGINA), (Reported) Pantoprazole Sodium 40 Mg Tablet.dr, 40 MG PO DAILY Prescribed by: ROSA MARIA PRADO on 09/21/20925 Potassium Chloride 10 Meq Tab.er.prt, 10 MEQ PO UD ONE TAB DAILY ON SUN//SUN/SUN AND ONE TAB TWICE DAILY ON Prescribed by: ROSA MARIA PRADO on 10/03/20 105 Ranolazine 500 Mg Tab.er.12h, 500 MG PO BID, (Reported) Past Medical/Social/Family Hx Patient Social History Tobacco Use?: No Substance use?: No Alcohol Use?: No Pt stated abuse/neglect: No Immunizations Up To Date Influenza Vaccine Up-to-Date: Yes; Up-to-Date First/Initial COVID19 Vaccinat: YES Second COVID19 Vaccination Eduard: YES Tetanus Booster (TDap): Unknown Hepatitis B: No TB Skin Test: None Date of Pneumonia Vaccine: Aug 05, 2020 Current Status Advance Directives: No Communicates: Verbally Primary Language: [place] Citizen Preferred Spoken Language: [place] Citizen Is interpretation needed?: No Implanted or Applied Medical D: Stents Family Medical History Family Hx: PSH: -BILATERAL KNEE SCOPES, WITH OPEN LEFT ACL REPAIR -ALL TOES AMPUTATED BILATERAL FEET -MULTIPLE DEBRIDEMENTS OF FOOT ULCERS -MULTIPLE CARDIAC CATHS-- ANGIOPLASTIES AND STENTS X 3--STENT TO [facility] HERE 05/2018, THEN TRANSFERED TO [facility] AND HAD STENT TO LAD ( COMPLICATED BY SEPSIS DUE TO LEFT FOOT ULCER AND WAS INTUBATED AND HAD PROLONGED HOSPITALIZATIONS/REHAB, AND HAD TOE AMPUTATION) ; HAD STENT TO [facility] 01/02/19 -BACK SURGERY/FUSION X 3 -TONSILLECTOMY -APPENDECTOMY -CHOLECYSTECTOMY -HERNIA REPAIR WITH INFECTION/COMPLICATIONS -PORT RIGHT CHEST PLACED/REMOVED DUE TO INFECTION -MANY TEETH REMOVED Review of Systems Constitutional: see HPI Focused Exam Height, Weight, BMI Height: 6'4.00" Weight: 240lbs. 3.0oz. 108.640990fe; 28.99 BMI Method:Stated Exam Exam Patient acknowledged, consented, and participated in this virtual visit which was conducted using real time audio/video Vital Signs Date Time Temp Pulse Resp B/P (MAP) Pulse Ox O2 Delivery O2 Flow Rate FiO2 04/25/23 11:15 56 11 158/95 (116) 99 Room Air 04/25/23 11:00 54 10 156/97 (116) 99 Room Air 04/25/23 10:45 58 6 164/97 (119) 97 Room Air 04/25/23 10:30 36.1 04/25/23 10:30 60 9 157/97 (117) 98 Room Air 04/25/23 10:25 36.8 59 14 155/94 98 Room Air 04/25/23 10:25 98 Room Air 04/25/23 10:15 57 9 155/92 (113) 98 Room Air 04/25/23 09:24 67 14 123/86 (98) 95 Room Air 04/25/23 09:19 64 14 125/93 (104) 95 Room Air 04/25/23 09:13 61 14 132/90 (104) 95 Room Air 04/25/23 09:00 58 14 161/96 (117) 95 Room Air 04/25/23 07:12 37.0 75 18 143/91 (108) Height & Weight Height: 6'4.00" Weight: 240lbs. 3.0oz. 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
[2023-04-25] MEDS: inSUlin ASPART (NovoLOG) 1 UNIT/0.01 ML (CHARGE PER UNIT) SC SCH ×2 (11:37→15:50)
[2023-04-25] MEDS ORDERED: HEParin (CATH LAB) 2,000 ML IV ONE (11:41)
[2023-04-25] MEDS ORDERED: LIDOCAINE 1% INJ 20 ML VIAL ONE (11:41)
[2023-04-25] MEDS ORDERED: ASPI-1238 PO (11:55)
[2023-04-25] MEDS ORDERED: CARV3.122 PO (11:55)
[2023-04-25] MEDS ORDERED: INSU100I23 SC (11:55)
[2023-04-25] MEDS ORDERED: CLOP75TA28 PO (11:55)
[2023-04-25] MEDS ORDERED: EZET10TA49 PO (11:55)
[2023-04-25 11:58] VITALS: BP 158/95
[2023-04-25] MEDS ORDERED: RT-ALBUTEROL SULF 2.5 MG/3 ML PRE-MIX VIAL INH PRN (12:15)
--- NOTE | 2023-04-25 12:32 | Consultation-Cardiology ---
HPI-Cardiology Cardiology Consultation Date of Consultation 04/25/23 Date of Admission Time Seen by Provider: 11:25 Indication: Chest pain HPI Patient is a 62 y/o male history of CAD, PAD, HTN. Presented to the ER with complaints of persistent chest and upper back pain since yesterday. Denies any dyspnea or syncope. Patient reports associated diaphoresis and intermittent left arm pain. Also complaining of intermittent episode of palpitation and racing heart sensation. Has hx of CAD with intervention in the past. 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 Macdonald. Was given SL Nitro without relief of symptoms. Rates pain 05/14, describing as deep, sharp persistent pain Home Medications & Allergies Allergies: Coded Allergies: linezolid (Verified Allergy, Unknown, 06/17/19) Home Medication List Reviewed: Yes [id number] Hx Patient Social History Marital Status: 2nd Hand Smoke Exposure: No Recent Hopitalizations: Yes (Aug FOOT PARTIAL LEFT FOOT AMPUTATION) Alcohol Use?: No Immunizations Up To Date Tetanus Booster (TDap): Unknown Date of Pneumonia Vaccine: Aug 05, 2020 Date of Influenza Vaccine: Aug 05, 2020 Past Medical History CAD, HTN, HLP, DM, CHF, PAD Family Medical History Significant Family History: COPD, Diabetes, Hypertension Family History: Family history: Cardiovascular disease 19 FATHER Family history: Diabetes mellitus 19 MOTHER Review of Systems-General Review of Systems Constitutional: see HPI, diaphoresis EENTM: see HPI, no symptoms reported Respiratory: see HPI, dyspnea on exertion; No orthopnea, No wheezing Cardiovascular: see HPI, chest pain; No edema; Hx of Intervention, palpitations Gastrointestinal: see HPI Genitourinary: see HPI Musculoskeletal: no symptoms reported Skin: no symptoms reported Psychiatric/Neurological: No Symptoms Reported Reviewed Test Results Reviewed Test Results Lab Laboratory Tests 04/25/23 07:15: White Blood Count 6.5, Red Blood Count 5.33, Hemoglobin 16.5, Hematocrit 49, Mean Corpuscular Volume 91, Mean Corpuscular Hemoglobin 31, Mean Corpuscular Hemoglobin Concent 34, Red Cell Distribution Width 13.0, Platelet Count 147, Mean Platelet Volume 10.7, Immature Granulocyte % (Auto) 0, Neutrophils (%) (Auto) 55, Lymphocytes (%) (Auto) 36, Monocytes (%) (Auto) 8, Eosinophils (%) (Auto) 1, Basophils (%) (Auto) 1, Neutrophils # (Auto) 3.5, Lymphocytes # (Auto) 2.3, Monocytes # (Auto) 0.5, Eosinophils # (Auto) 0.1, Basophils # (Auto) 0.0, Immature Granulocyte # (Auto) 0.0, D-Dimer 0.35, Sodium Level 139, Potassium Level 4.3, Chloride Level 101, Carbon Dioxide Level 30, Anion Gap 8, Blood Urea Nitrogen 14, Creatinine 1.34H, Estimat Glomerular Filtration Rate 61, BUN/Creatinine Ratio 10, Glucose Level 298H, Calcium Level 9.0, Corrected Calcium 9.2, Magnesium Level 1.8, Total Bilirubin 1.2H, Aspartate Amino Transf (AST/SGOT) 26, Alanine Aminotransferase (ALT/SGPT) 40, Alkaline Phosphatase 102, Troponin I < 0.028, B-Type Natriuretic Peptide 86.4, Total Protein 7.2, Albumin 3.8 04/25/23 09:06: Troponin I < 0.028 Physical Exam Physical Exam Vital Signs Vital Signs - First Documented 04/25/23 04/25/23 07:12 09:00 Temp 37.0 Pulse 75 Resp 18 B/P (MAP) 143/91 (108) Pulse Ox 95 O2 Delivery Room Air Capillary Refill : Less Than 3 Seconds Height, Weight, BMI Height: 6'4.00" Weight: 240lbs. 3.0oz. 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 Has been having persistent chest pain since yesterday. Associated diaphoresis and left arm pain. EKG showing no acute EKG changes, poor R wave progression, similar to previous EKG. Cardiac enzymes negative. Still having active chest pain, will proceed with [facility]. Congestive heart failure, chronic left ventricular systolic dysfunction, most recent ejection fraction per echo done at this hosptial 35 percent. I will reevaluate 2D Echo Palpitation, feeling pounding in his heart and chest but normal rate and rhythm. Possibly secondary to anxiety. Continue to monitor on telemetry Coronary artery disease, history of multiple intervention, last cardiac catheter ization was done on September 10, 2020 showing patent stent in the mid LAD, patent stent in the obtuse marginal branch, severe stenosis at the ostial first obtuse marginal branch/ramus intermedius which was too small for intervention and severe stenosis in the right coronary artery was successful stenting. Cardiac catheterization done on September 19, 2020 showing thrombus with total occlusion of the stent in the distal right coronary artery, successful thrombectomy followed by balloon angioplasty to the distal right coronary artery using 3.5 x 15 mm balloon with excellent results. Planning for [facility] for further evaluation Hypertension, restart home blood pressure medications and continue to monitor. Hyperlipidemia, maintained on statin as outpatient. 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 Denson. This is Jessica Ferrell PA-C, as a scribe for Dr. Patel Patient was seen and evaluated with Jessica, I interviewed and examined the patient, discussed in length the management plan, agree with the current scribed note Patient has been having chest pain since yesterday, described as dull ache deep in the left side of his chest and his back. Did not relieved with nitroglycerin, he was fairly anxious with his pain. Denied any syncope but has been having episodes of lightheadedness and diaphoresis, shortness of breath during the flareup episodes. Has underlying EKG abnormality with Q waves in the inferior leads and poor R wave progression in the anterior leads. I retried with nitroglycerin and morphine, patient continued to be fairly uncomfortable and having active pain. We will proceed with urgent cardiac catheterization, monitor blood pressure and lipids Clinical Quality Measures AMI/AHF: ASA po Prior to arrival: No JESSICA CASTELLANO Apr 25, 2023 12:30 JONH PATEL MD Apr 25, 2023 13:10
[2023-04-25] MEDS ORDERED: VERAPAMIL 5 MG/2 ML (CALAN) VIAL IV ONE (12:35)
[2023-04-25] MEDS ORDERED: MIDAZOLAM 5 MG/5 ML (VERSED) VIAL ONE (12:35)
[2023-04-25] MEDS ORDERED: fentaNYL INJ 100 MCG/2 ML AMP ONE (12:35)
[2023-04-25] MEDS ORDERED: NITRO DRIP 25000 MCG/D5W 250 ML IV ONE (12:36)
[2023-04-25] MEDS ORDERED: HEParin 1000 UNIT/ML (10ML VIAL) FOR BOLUS ONE (12:36)
--- NOTE | 2023-04-25 13:11 | Cardiac Procedure Note-CS/ASA ---
Pre-Procedure Note Pre-Op Procedure Note Date of Available H&P: Apr 25, 2023 Date H&P Reviewed: Apr 25, 2023 Time H&P Reviewed: 13:10 History & Physical: H&P Reviewed, Patient Examed, No changes noted Pre-Operative Diagnosis: CAD Moderate Sedation PreProcedure Time 13:10 ASA Score 3 Airway Lungs Heart ASA score ASA 1: a normal healthy patient ASA 2: a patient with a mild systemic disease (mid diabetes, controlled hypertension, obesity ASA 3: a patient with a severe systemic disease that limits activity (angina, COPD, prior Myocardial infarction) ASA 4: a patient with an incapacitating disease that is a constant threat to life (CHF, renal failure) ASA 5: a moribund patient not expected to survive 24 hrs. (ruptured aneurysm) ASA 6: a declared brain- patient whose organs are being harvested. For emergent operations, add the letter E after the classification Mallampati Classification Grade 3 Sedation Plan Analgesia, Amnesia, Plan communicated to team members, Discussed options with patient/fam, Discussed risks with patient/fam The patient is an appropriate candidate to undergo the planned procedure, sedation, and anesthesia. The patient immediately re-assessed prior to indication. JONH MARIA MD Apr 25, 2023 13:10
--- NOTE | 2023-04-25 13:44 | Cardiac Cath Report ---
Cardiac Cath Report Physician (s)/Jewel Gauger (s) Physician JONH MARIA MD Pre-Procedure Diagnosis Pre-Procedure Diagnosis: CAD Post-Procedure Note Procedure Start Date: Apr 25, 2023 Name of Procedure: Left heart catheterization Aortic arch angiogram Findings/Procedure Note PROCEDURE NOTE: 62 years old gentleman with extensive history of coronary artery disease, admitted with acute chest pain, continue to have active chest pain, cardiac catheterization was advised. After explaining the procedure to the patient, all pros and cons were explained, all questions were answered. The patient signed the consent and then he was placed in the cardiac catheterization laboratory. Groin was prepped in SL fashi on local anesthesia was used. Sheath placed in the right radial artery, Norco catheter was advanced to the left ventricular cavity, pressure was measured, pullback LV to aorta was done, engage the left coronary system, angiogram was done then exchanged the catheter and used Chuck right catheter and engaged the right coronary system, angiogram was done then the catheter was pulled back to the aortic arch and aortic arch angiogram was done due to the fact that patient did not have significant change in his coronary anatomy and he was having significant chest and back pain. At the end of the procedure the sheath was removed. Vascular band was used FINDINGS: Hemodynamics LV 98/15, end-diastolic pressure of 15 Aorta 96/69 mean of 79 ANATOMY: Left Main is free of obstructive disease Left Anterior Descending has a patent stent with mild to moderate disease nonobstructive disease Left Circumflex is moderate in size, has chronically occluded first obtuse marginal branch otherwise mild to moderate disease nonobstructive disease Right Coronary Artery is large dominant artery with patent stent distally, nonobstructive disease distally LV Gram was not done, pressure was measured Aorta evaluation done with aortic arch angiogram showed slightly prominent ascending aorta and aortic arch, no full aneurysm or dissection, normal origin of the brachiocephalic, left carotid and left subclavian arteries CONCLUSION: Patent stent in the mid LAD and distal right coronary artery with mild to moderate disease nonobstructive disease Chronically occluded first obtuse marginal branch, did not change compared to the previous study Normal left ventricular end-diastolic pressure Slightly prominent aortic arch and ascending aorta, no dissection or aneurysm was noted DISCUSSION AND RECOMMENDATION: Chest pain is probably due to small vessel disease, nonobstructive disease in addition to the chronically occluded circumflex artery. Maximizing medical therapy is recommended Anesthesia Type: Conscious Sedation Estimated blood loss (mL): 20 ml Contrast Amount: 37 ml Total Radiation Dose: 704 mGy Post-Procedure Diagnosis Post-operative diagnosis: Chest pain Coronary artery disease Hypertension Hyperlipidemia JONH MARIA MD Apr 25, 2023 13:44
[2023-04-25] MEDS ORDERED: PANTOPRAZOLE 40 MG (PROTONIX) TAB PO SCH (13:45)
[2023-04-25] MEDS ORDERED: PANT40SU PO (14:18)
--- NOTE | 2023-04-25 14:19 | Discharge Inst-Post CATH ---
Discharge Inst-CATH/EP Problems Reviewed?: Yes Post Cardiac Cath/EP D/C Inst Follow Up/Plan Follow-up with Dr. Davis in 2 to 4 weeks <b>CARDIAC CATH/EP PROCEDURE DISCHARGE INSTRUCTIONS</b> ACTIVITY * Go Home directly and rest. * Limit activity of the leg (or wrist if it was used) for 7 days including aerobics, swimming, jogging, bicycling, etc. * Restrict stair-climbing for 7 days if possible, if not, climb up with your non-cath leg, then bring together on the same step. * Avoid lifting, pushing, pulling or excessive movement of the affected extremity for 7 days. * Customary sexual activity may be resumed after 2 days-use caution not to use a position that strains or causes pain to the affected extremity. * No driving for 24 hours. * NO SMOKING. * Avoid straining for bowel movements for 7 days. * Gentle walking on level ground is allowed. * Returning to work will depend on the type of procedure and the results. Your doctor will discuss this with you. CALL YOUR DOCTOR FOR ANY OF THE FOLLOWING: *If bleeding from the puncture site occurs- Apply gentle pressure to site with clean cloth and call your doctor or EMS. * If a knot or lump forms under the skin, increases in size, or causes pain. * If bruising appears to be worsening or moving further down your leg instead of disappearing. * Temperature above 101 F. CARE OF YOUR GROIN INCISION; * Bruising or purple discoloration of the skin near the puncture site is common. * You may shower only, no bathtub bathing for 5 days. Be careful to avoid slipping as your leg may feel stiff. * If a closure device was used on your femoral artery, please see the attached guide regarding care of the device and your leg. * Leave dressing on FOR 24 hours. CARE OF YOUR WRIST INCISION; * Bruising or purple discoloration of the skin near the puncture site is common. * You may shower. * DO NOT submerge wrist. * Leave dressing on FOR 24 hours. JONH MARIA MD Apr 25, 2023 14:19
[2023-04-25] MEDS ORDERED: inSUlin ASPART (NovoLOG) 1 UNIT/0.01 ML (CHARGE PER UNIT) SC SCH (17:00)
[2023-04-25] MEDS ORDERED: INSULIN LISPRO 15 UNIT SC SCH (17:00)
[2023-04-25] MEDS ORDERED: FINASTERIDE (PROSCAR) 5 MG TAB PO SCH (21:00)
[2023-04-25] MEDS ORDERED: DOCUSATE SODIUM 100 MG (COLACE) CAP PO SCH (21:00)
[2023-04-25] MEDS ORDERED: RANOLAZINE ER 500 MG TAB (RANEXA) PO SCH (21:00)
[2023-04-25] MEDS ORDERED: clonazePAM 1 MG (KlonoPIN) TAB PO SCH (21:00)
[2023-04-25] MEDS ORDERED: SENNOSIDES 8.6 MG (SENOKOT) TAB PO SCH (21:00)
[2023-04-26] MEDS ORDERED: INSULIN DEGLUDEC 65 UNIT SC SCH (09:00)
[2023-04-26] MEDS ORDERED: CLOPIDOGREL 75 MG (PLAVIX) TABLET PO SCH (09:00)
[2023-04-26] MEDS ORDERED: eZETimibe 10 MG (ZETIA) TABLET PO SCH (09:00)
[2023-04-26] MEDS ORDERED: ASPIRIN E.C. 81 MG (ECOTRIN) TAB PO SCH ×2 (09:00)
== END 2023-04-25 16:25 | disposition home or self-care (01) ==
LOC: EDUNIT# 07:10 → ER 07:11 → ICU 10:25
PROVIDERS: ADMIT Internal Medicine; ATTEND Internal Medicine
DX: I25.110 Atherosclerotic heart disease of native coronary artery with unstable angina pectoris (principal); I13.0 Hypertensive heart and chronic kidney disease with heart failure and stage 1 through stage 4 chronic kidney disease, or unspecified chronic kidney disease; E11.22 Type 2 diabetes mellitus with diabetic chronic kidney disease; N18.9 Chronic kidney disease, unspecified; I50.22 Chronic systolic (congestive) heart failure; Z79.4 Long term (current) use of insulin; I42.9 Cardiomyopathy, unspecified; E78.00 Pure hypercholesterolemia, unspecified; I73.9 Peripheral vascular disease, unspecified; F32.A Depression, unspecified; Z95.5 Presence of coronary angioplasty implant and graft; Z89.432 Acquired absence of left foot; Z91.09 Other allergy status, other than to drugs and biological substances; Z79.02 Long term (current) use of antithrombotics/antiplatelets; Z79.82 Long term (current) use of aspirin; Z79.899 Other long term (current) drug therapy
CPT/HCPCS: 36221; 71046; 80053; 82947; 83735; 83880; 84484; 85025; 85379; 87081; 93005; 93458; 96361; 96372; 99284; C1769; C1894; C8929; G0378; 36415; 93306

== ENCOUNTER → 2023-07-10 | Outpatient (CLI) | payer OTHER ==
[~2023-07-10] MED LIST changes: +EZET10TA49 PO; +INSU100I23 SC; +PANT40SU PO; +POTA-185 PO; -POTA10TA PO
[2023-07-10 08:28] LABS: EOSINOPHILS # (AUTO) 0.1 10^3/uL (0.0-0.3); EOSINOPHILS % (AUTO) 1 % (0-10); HEMATOCRIT 43 % (40-54); MONOCYTES # (AUTO) 0.5 10^3/uL (0.0-1.0)
[2023-07-10 08:30] LABS: BASOPHILS % (AUTO) 0 % (0-10); HEMOGLOBIN 14.9 g/dL (13.3-17.7); LYMPHOCYTES # (AUTO) 1.8 10^3/uL (1.0-4.0); LYMPHOCYTES % (AUTO) 27 % (12-44); MEAN CORPUSCULAR HEMOGLOBIN 31 pg (25-34); MEAN CORPUSCULAR HGB CONC 35 g/dL (32-36); MEAN CORPUSCULAR VOLUME 90 fL (80-99); MEAN PLATELET VOLUME 10.7 fL (9.0-12.2); MONOCYTES % (AUTO) 7 % (0-12); NEUTROPHILS # (AUTO) 4.2 10^3/uL (1.8-7.8); NEUTROPHILS % (AUTO) 64 % (42-75); PLATELET COUNT 128 10^3/uL (130-400); WHITE BLOOD COUNT 6.6 10^3/uL (4.3-11.0)
[2023-07-10 08:51] LABS: ALANINE AMINOTRANSFERASE 37 U/L (0-55); ALBUMIN 3.6 GM/DL (3.2-4.5); ALKALINE PHOSPHATASE 106 U/L (40-136); BILIRUBIN,TOTAL 1.2 MG/DL (0.1-1.0); BUN/CREATININE RATIO 16; CALCIUM 8.7 MG/DL (8.5-10.1); CARBON DIOXIDE 26 MMOL/L (21-32); CHLORIDE 98 MMOL/L (98-107); CHOLESTEROL 175 MG/DL (< 200); CREATININE SERUM 1.48 MG/DL (0.60-1.30); GFR ESTIMATED 54; HDL CHOLESTEROL 43 MG/DL (40-60); POTASSIUM 4.6 MMOL/L (3.6-5.0); SODIUM 133 MMOL/L (135-145); TRIGLYCERIDES 479 MG/DL (<150)
[2023-07-10 09:01] LABS: GLUCOSE 514 MG/DL (70-105)
== END ==
LOC: LAB 08:01
PROVIDERS: ATTEND Family Medicine
DX: Z00.00 Encounter for general adult medical examination without abnormal findings (principal); Z13.29 Encounter for screening for other suspected endocrine disorder; I12.9 Hypertensive chronic kidney disease with stage 1 through stage 4 chronic kidney disease, or unspecified chronic kidney disease; N18.30 Chronic kidney disease, stage 3 unspecified; E11.65 Type 2 diabetes mellitus with hyperglycemia; E11.51 Type 2 diabetes mellitus with diabetic peripheral angiopathy without gangrene
CPT/HCPCS: 36415; 80053; 80061; 82607; 83036; 84443; 85025

== ENCOUNTER 2023-08-09 20:08 | Observation (INO) | payer OTHER ==
[~2023-08-09] VITALS: Ht 193 cm; Wt 118.0 kg
[2023-08-09] MEDS ORDERED: ASPIRIN 81 MG CHEWABLE TABLET PO ONE (20:15)
[2023-08-09] MEDS: NITROGLYCERIN 0.4 MG SL TABLETS BTL 25'S SL PRN ×3 (20:23→23:32)
[2023-08-09 20:24] LABS: BASOPHILS % (AUTO) 0 % (0-10); EOSINOPHILS # (AUTO) 0.1 10^3/uL (0.0-0.3); EOSINOPHILS % (AUTO) 2 % (0-10); HEMATOCRIT 43 % (40-54); HEMOGLOBIN 14.9 g/dL (13.3-17.7); LYMPHOCYTES # (AUTO) 2.5 10^3/uL (1.0-4.0); LYMPHOCYTES % (AUTO) 37 % (12-44); MEAN CORPUSCULAR HEMOGLOBIN 32 pg (25-34); MEAN CORPUSCULAR HGB CONC 35 g/dL (32-36); MEAN CORPUSCULAR VOLUME 92 fL (80-99); MONOCYTES # (AUTO) 0.6 10^3/uL (0.0-1.0); MONOCYTES % (AUTO) 8 % (0-12); NEUTROPHILS # (AUTO) 3.5 10^3/uL (1.8-7.8); NEUTROPHILS % (AUTO) 52 % (42-75); PLATELET COUNT 154 10^3/uL (130-400); WHITE BLOOD COUNT 6.7 10^3/uL (4.3-11.0)
--- NOTE | 2023-08-09 20:27 | ED Chest Pain ---
General Chief Complaint: Chest Pain Stated Complaint: HEART TROUBLES, CHEST PAIN Source: patient, old records History of Present Illness Date Seen by Provider: Aug 09, 2023 Time Seen by Provider: 20:11 Initial Comments PT ARRIVES VIA POV FROM HOME C/O CHEST PAIN OFF AND ON FOR THE LAST FEW WEEKS, PAIN BEGAN TONIGHT AT 1999 WHILE EATING AND HAS NOT GONE AWAY RATES PAIN 7-8/10 AT THIS TIME. Allergies and Home Medications Allergies Coded Allergies: linezolid (Verified Allergy, Unknown, 06/17/19) Patient Home Medication List Acetaminophen (Tylenol Extra Strength) 500 Mg Tablet, 1,000 MG PO HS, (Reported) Entered as Reported by: DINESH BARKSDALE on 01/02/19 1409 Aspirin (Aspirin EC) 81 Mg Tablet.dr, 81 MG PO DAILY, (Reported) Entered as Reported by: REDDY WANG on 04/25/23 1155 Atorvastatin Calcium (Atorvastatin Calcium) 80 Mg Tablet, 80 MG PO DAILY, (Reported) Entered as Reported by: DINESH BARKSDALE on 04/24/19 1531 Carvedilol (Carvedilol) 3.125 Mg Tablet, 3.125 MG PO BID, (Reported) Entered as Reported by: REDDY WNAG on 04/25/23 1155 Clonazepam (Clonazepam) 1 Mg Tablet, 2 MG PO HS, (Reported) Entered as Reported by: GIUSEPPE MIRANDA on 01/29/17 1551 Clopidogrel Bisulfate (Clopidogrel) 75 Mg Tablet, 75 MG PO DAILY, (Reported) Entered as Reported by: REDDY WANG on 04/25/23 1155 Ezetimibe (Ezetimibe) 10 Mg Tablet, 10 MG PO DAILY, (Reported) Entered as Reported by: REDDY WANG on 04/25/23 1155 Finasteride (Finasteride) 5 Mg Tablet, 5 MG PO HS, (Reported) Entered as Reported by: REDDY WANG on 09/20/20 1306 Insulin Degludec (Tresiba Flextouch U-200) 200 Unit/Ml (3 Ml) Insuln.pen, 65 UNITS SC DAILY, (Reported) Entered as Reported by: DINESH BARKSDALE on 01/02/19 1402 Insulin Lispro (Humalog Kwikpen) 100 Unit/Ml Insuln.pen, 15 UNITS SC AC, (Reported) Entered as Reported by: REDDY WANG on 04/25/23 1155 Pantoprazole Sodium (Protonix) 40 Mg , 40 MG PO DAILY Prescribed by: JONH MARIA on 04/25/23 1418 Ranolazine (Ranolazine ER) 500 Mg Tab.er.12h, 500 MG PO BID, (Reported) Entered as Reported by: DINESH BARKSDALE on 06/17/19 0904 Past Vdzscst-Olnmng-Ylqukm Hx Immunizations Up To Date Tetanus Booster (TDap): Unknown PED Vaccines UTD: No First/Initial COVID19 Vaccinat: YES Second COVID19 Vaccination Eduard: YES Third COVID19 Vaccination Date: YES Seasonal Allergies Seasonal Allergies: No Past Medical History Surgery/Hospitalization HX: DIABETES TYPE 2, HTN , [place], CHRONIC FOOT WOUNDS,HERNIA REPAIR,BACK SURG, LTKR, SPINAL FUSIONS Surgeries: Yes (ACL REPAIR;WRIST SURGERY;CARDIAC CATH--STENTS; BILAT FOREFOOT AMPUTATION) Abdominal, Amputation, Appendectomy, Cardiac, Coronary Stent, Gallbladder, Orthopedic, Tonsillectomy Respiratory: No Currently Using CPAP: No Currently Using BIPAP: No Cardiac: Yes (CARDIAC CATHS--STENTS X 3-OM2, LAC, RCA) Cardiomyopathy, Coronary Artery Disease, Heart Attack, High Cholesterol, Hypertension Neurological: Yes Neuropathy, Stroke Reproductive Disorders: No Sexually Transmitted Disease: No HIV/AIDS: No Genitourinary: Yes Kidney Stones Gastrointestinal: Yes Abdominal Hernia Musculoskeletal: Yes (OSTEOMYELITIS WITH ALL TOES AMPUTATED; BACK FUSION X 3) Degenerate Disk Disease, Arthritis, Chronic Back Pain Endocrine: Yes Diabetes, Insulin dep HEENT: Yes (R EYE BLOOD CLOT/PARTIAL BLINDNESS) Loss of Vision: Denies Hearing Impairment: Denies Cancer: No Psychosocial: Yes Anxiety, Depression Integumentary: Yes (FOOT ULCERS/OSTEOMYELITIS; MULTIPLE SURGICAL WOUND INFECTIONS) Blood Disorders: No Adverse Reaction/Blood Tranf: No Family Medical History Family history: Cardiovascular disease 19 FATHER Family history: Diabetes mellitus 19 MOTHER COPD, Diabetes, Hypertension PSH: -BILATERAL KNEE SCOPES, WITH OPEN LEFT ACL REPAIR -ALL TOES AMPUTATED BILATERAL FEET -MULTIPLE DEBRIDEMENTS OF FOOT ULCERS -MULTIPLE CARDIAC CATHS-- ANGIOPLASTIES AND STENTS X 3--STENT TO [facility] HERE 05/2018, THEN TRANSFERED TO [facility] AND HAD STENT TO LAD ( COMPLICATED BY SEPSIS DUE TO LEFT FOOT ULCER AND WAS INTUBATED AND HAD PROLONGED HOSPITALIZATIONS/REHAB, AND HAD TOE AMPUTATION) ; HAD STENT TO RCA 01/02/19 -BACK SURGERY/FUSION X 3 -TONSILLECTOMY -APPENDECTOMY -CHOLECYSTECTOMY -HERNIA REPAIR WITH INFECTION/COMPLICATIONS -PORT RIGHT CHEST PLACED/REMOVED DUE TO INFECTION -MANY TEETH REMOVED Physical Exam Vital Signs Vital Signs - First Documented 08/09/23 20:13 Temp 36.6 Pulse 73 Resp 14 B/P (MAP) 172/102 (125) Pulse Ox 98 O2 Delivery Room Air Capillary Refill : Height, Weight, BMI Height: 6'4.00" Weight: 240lbs. 3.0oz. [id number]; 28.99 BMI Method:Stated Progress/Results/Core Measures Results/Orders Lab Results Laboratory Tests Test 08/09/23 20:14 Range/Units White Blood Count 6.7 4.3-11.0 10^3/uL Red Blood Count 4.67 4.30-5.52 10^6/uL Hemoglobin 14.9 13.3-17.7 g/dL Hematocrit 43 40-54 % Mean Corpuscular Volume 92 80-99 fL Mean Corpuscular Hemoglobin 32 25-34 pg Mean Corpuscular Hemoglobin Concent 35 32-36 g/dL Red Cell Distribution Width 12.9 10.0-14.5 % Platelet Count 154 130-400 10^3/uL Mean Platelet Volume 10.0 9.0-12.2 fL Immature Granulocyte % (Auto) 1 % Neutrophils (%) (Auto) 52 42-75 % Lymphocytes (%) (Auto) 37 12-44 % Monocytes (%) (Auto) 8 0-12 % Eosinophils (%) (Auto) 2 0-10 % Basophils (%) (Auto) 0 0-10 % Neutrophils # (Auto) 3.5 1.8-7.8 10^3/uL Lymphocytes # (Auto) 2.5 1.0-4.0 10^3/uL Monocytes # (Auto) 0.6 0.0-1.0 10^3/uL Eosinophils # (Auto) 0.1 0.0-0.3 10^3/uL Basophils # (Auto) 0.0 0.0-0.1 10^3/uL Immature Granulocyte # (Auto) 0.0 0.0-0.1 10^3/uL Prothrombin Time 13.0 12.2-14.7 SEC INR Comment 1.0 0.8-1.4 Activated Partial Thromboplast Time 36 H 24-35 SEC D-Dimer 0.71 H 0.00-0.49 UG/ML Sodium Level 136 135-145 MMOL/L Potassium Level 4.2 3.6-5.0 MMOL/L Chloride Level 102 98-107 MMOL/L Carbon Dioxide Level 23 21-32 MMOL/L Anion Gap 11 5-14 MMOL/L Blood Urea Nitrogen 23 H 7-18 MG/DL Creatinine 1.35 H 0.60-1.30 MG/DL Estimat Glomerular Filtration Rate 60 BUN/Creatinine Ratio 17 Glucose Level 281 H 70-105 MG/DL Calcium Level 8.6 8.5-10.1 MG/DL Corrected Calcium 8.9 8.5-10.1 MG/DL Magnesium Level 1.9 1.6-2.4 MG/DL Total Bilirubin 1.0 0.1-1.0 MG/DL Aspartate Amino Transf (AST/SGOT) 32 5-34 U/L Alanine Aminotransferase (ALT/SGPT) 46 0-55 U/L Alkaline Phosphatase 96 40-136 U/L Total Creatine Kinase 253 H 30-200 U/L Creatine Kinase MB 6.8 *H <6.6 NG/ML Myoglobin 107.8 H 10.0-92.0 NG/ML Troponin I < 0.028 <0.028 NG/ML B-Type Natriuretic Peptide 156.7 H <100.0 PG/ML Total Protein 7.1 6.4-8.2 GM/DL Albumin 3.6 3.2-4.5 GM/DL Amylase Level 38 25-125 U/L Lipase 150 H 8-78 U/L My Orders Orders - MARIA FERNANDAEDGARA K DO Cbc And Automated Diff (08/09/23 20:11) Magnesium (08/09/23 20:11) Chest 1 View, Ap/Pa Only (08/09/23 20:11) Ekg Tracing (08/09/23 20:11) Comprehensive Metabolic Panel (08/09/23 20:11) Myoglobin Serum (08/09/23 20:11) Protime With Inr (08/09/23 20:11) Partial Thromboplastin Time (08/09/23 20:11) O2 (08/09/23 20:11) Monitor-Rhythm Ecg Trace Only (08/09/23 20:11) Ed Iv/Invasive Line Start (08/09/23 20:11) Creatine Kinase (08/09/23 20:11) Creatine Kinase Mb (08/09/23 20:11) Lipase (08/09/23 20:11) Amylase (08/09/23 20:11) Bnp [place] (08/09/23 20:11) Fibrin Degradation Products (08/09/23 20:11) Troponin I [place] (08/09/23 20:11) Nitroglycerin 0.4 Mg Btl 25's (Nitroglyc (08/09/23 20:15) Aspirin Chewable Tablet (Aspirin Chewabl (08/09/23 20:15) Morphine Injection (Morphine Injection (08/09/23 21:00) Morphine Injection (Morphine Injection (08/09/23 20:47) Ct [place] Chest/Noang Abd-Pelv W (08/09/23 21:04) Hydromorphone Injection (Hydromorphone (08/09/23 21:15) Lidocaine 2% Viscous 15 Ml (Xylocaine Vi (08/09/23 21:15) Antacid Suspension (Antacid Suspension (08/09/23 21:15) Ed Iv/Invasive Line Start (08/09/23 21:04) Ns Iv 1000 Ml (Ns Iv 1000 Ml) (08/09/23 21:15) Iohexol Injection (Omnipaque 350 Mg/Ml 1 (08/09/23 21:15) Received Contrast (Hold Metformin- Contr (08/09/23 21:15) Ns (Ivpb) 100 Ml (Sodium Chloride 0.9% 1 (08/09/23 21:15) Medications Given in ED Current Medications Medications Dose Ordered Sig/Aylin Route Start Time Stop Time Status Last Admin Dose Admin Al Hydrox/Mg Hydrox/Simethicone 30 ml ONCE ONCE PO 08/09/23 21:15 08/09/23 21:16 DC 08/09/23 21:12 30 ML Aspirin 324 mg ONCE ONCE PO 08/09/23 20:15 08/09/23 20:16 DC 08/09/23 20:23 324 MG Hydromorphone HCl 0.5 mg ONCE ONCE IV 08/09/23 21:15 08/09/23 21:16 DC 08/09/23 21:13 0.5 MG Iohexol 100 ml ONCE ONCE IV 08/09/23 21:15 08/09/23 21:26 DC 08/09/23 21:17 90 ML Lidocaine HCl 15 ml ONCE ONCE PO 08/09/23 21:15 08/09/23 21:16 DC 08/09/23 21:12 15 ML Morphine Sulfate 4 mg ONCE ONCE IVP 08/09/23 21:00 08/09/23 21:01 DC 08/09/23 20:49 4 MG Nitroglycerin 0.4 mg UD PRN SL 08/09/23 20:15 08/09/23 20:23 0.4 MG Sodium Chloride 100 ml ONCE ONCE IV 08/09/23 21:15 08/09/23 21:26 DC 08/09/23 21:17 100 ML Vital Signs/I&O 08/09/23 20:13 Temp 36.6 Pulse 73 Resp 14 B/P (MAP) 172/102 (125) Pulse Ox 98 O2 Delivery Room Air Progress Progress Note : Progress Note GIVEN: -ASPIRIN -NTG SL X 1--NO SIGNIFICANT IMPROVEMENT IN PAIN, BP DROPPED FROM 180 SYSTOLIC TO 125 SYSTOLIC. NO ADDITIONAL SL NTG GIVEN Diagnostic Imaging Comments CT CHEST ANGIOGRAM / ABDOMEN-PELVIS--PER RADIOLOGIST REPORT AT 0 FINDINGS: No pulmonary emboli. Normal caliber thoracic aorta without features of dissection. Heart is normal in size. No pleural effusion or pneumothorax. No mediastinal or hilar lymphadenopathy. No supraclavicular or axillary lymphadenopathy. No abnormality of the trachea. There is no pneumonia or edema. There is small amount of linear atelectasis within the right lower lobe. Otherwise, lungs are clear. No worrisome focal osseous lesion within the chest. No free intraperitoneal air or fluid. The liver, spleen and pancreas are all normal. Cholecystectomy. No adrenal mass. No renal mass or obstructive uropathy. Urinary bladder is normal. No pericolonic inflammatory change or bowel obstruction. Normal caliber abdominal aorta is without dissection. The celiac, superior mesenteric and bilateral renal arteries are patent. Appendix is normal. No abdominal or pelvic lymphadenopathy. No concerning focal osseous lesion. Previous posterior instrumented fusion in the lumbar spine. IMPRESSION: 1. No acute abnormality in the chest, abdomen or pelvis. Reviewed: Reviewed by Me Departure Departure-Patient Inst. Referrals: ROSA MARIA PRADO MD (PCP/Family) Primary Care Physician PAUL IRVING DO Aug 09, 2023 20:27
--- NOTE | 2023-08-09 20:36 | Diagnostic Imaging Report ---
CHEST 1 VIEW, AP/PA ONLY Indication: Chest pain. Comparison: 04/25/2023 Findings: No focal airspace disease in the visualized lungs. No pleural effusion or pneumothorax. Normal cardiomediastinal silhouette. Impression: 1. No acute cardiopulmonary process by portable radiography. Dictated by: Dictated on workstation # [id number]
[2023-08-09 20:41] LABS: FIBRIN DEGRADATION PRODUCTS 0.71 UG/ML (0.00-0.49)
[2023-08-09 20:46] LABS: ALANINE AMINOTRANSFERASE 46 U/L (0-55); ALBUMIN 3.6 GM/DL (3.2-4.5); ALKALINE PHOSPHATASE 96 U/L (40-136); AMYLASE 38 U/L (25-125); BUN/CREATININE RATIO 17; CALCIUM 8.6 MG/DL (8.5-10.1); CARBON DIOXIDE 23 MMOL/L (21-32); CHLORIDE 102 MMOL/L (98-107); CREATINE KINASE 253 U/L (30-200); CREATININE SERUM 1.35 MG/DL (0.60-1.30); GFR ESTIMATED 60; GLUCOSE 281 MG/DL (70-105); LIPASE 150 U/L (8-78); MAGNESIUM 1.9 MG/DL (1.6-2.4); POTASSIUM 4.2 MMOL/L (3.6-5.0); SODIUM 136 MMOL/L (135-145); TOTAL PROTEIN 7.1 GM/DL (6.4-8.2)
[2023-08-09] MEDS ORDERED: morphine INJ 4 MG/ML 1 ML (VIAL/SYRINGE) ONE (20:47)
[2023-08-09 20:56] LABS: CREATINE KINASE MB 6.8 NG/ML (<6.6)
[2023-08-09] MEDS ORDERED: morphine INJ 4 MG/ML 1 ML (VIAL/SYRINGE) IVP ONE (21:00)
[2023-08-09] MEDS ORDERED: NS 100 ML (IVPB) BAG IV ONE (21:15)
[2023-08-09] MEDS ORDERED: HYDROmorphone INJECTION 2 MG/ML VIAL IV ONE (21:15)
[2023-08-09] MEDS ORDERED: NS IV 1000 ML 1,000 ML IV SCH (21:15)
[2023-08-09] MEDS ORDERED: HOLD METFORMIN - RECEIVED CONTRAST 20 ML VIAL IV SCH (21:15)
[2023-08-09] MEDS ORDERED: LIDOCAINE 2% VISCOUS 15 ML UDC PO ONE (21:15)
[2023-08-09] MEDS ORDERED: IOHEXOL 350 MG/ML 100 ML (OMNIPAQUE 350) VIAL IV ONE (21:15)
[2023-08-09] MEDS ORDERED: ANTACID SUSPENSION 30 ML UDC PO ONE (21:15)
--- NOTE | 2023-08-09 21:46 | Diagnostic Imaging Report ---
INDICATION: Substernal chest pain. Shortness of air. CTA chest, abdomen and pelvis Thin axial sections through the chest, abdomen and pelvis are obtained following intravenous contrast bolus. Multiplanar MIP images were reconstructed and reviewed. All CT scans use one or more of the following dose optimizing techniques: automated exposure control, MA and/or KvP adjustment based on patient size and exam type or iterative reconstruction. FINDINGS: No pulmonary emboli. Normal caliber thoracic aorta without features of dissection. Heart is normal in size. No pleural effusion or pneumothorax. No mediastinal or hilar lymphadenopathy. No supraclavicular or axillary lymphadenopathy. No abnormality of the trachea. There is no pneumonia or edema. There is small amount of linear atelectasis within the right lower lobe. Otherwise, lungs are clear. No worrisome focal osseous lesion within the chest. No free intraperitoneal air or fluid. The liver, spleen and pancreas are all normal. Cholecystectomy. No adrenal mass. No renal mass or obstructive uropathy. Urinary bladder is normal. No pericolonic inflammatory change or bowel obstruction. Normal caliber abdominal aorta is without dissection. The celiac, superior mesenteric and bilateral renal arteries are patent. Appendix is normal. No abdominal or pelvic lymphadenopathy. No concerning focal osseous lesion. Previous posterior instrumented fusion in the lumbar spine. IMPRESSION: 1. No acute abnormality in the chest, abdomen or pelvis. Dictated by: Dictated on workstation # [id number]
[2023-08-09 22:14] VITALS: BP 168/100
[2023-08-09] MEDS ORDERED: MILK OF MAGNESIA 400 MG/5 ML 30 ML UDC PO PRN (22:30)
[2023-08-09] MEDS ORDERED: ALPRAZolam 1 MG TABLET PO PRN (22:30)
[2023-08-09] MEDS ORDERED: NITROGLYCERIN 0.4 MG SL TABLETS BTL 25'S SL PRN (22:30)
[2023-08-09] MEDS ORDERED: BISACODYL 10 MG SUPPOSITORY PR PRN (22:30)
[2023-08-09] MEDS ORDERED: oxyCODONE IMMEDIATE RELEASE 5 MG TABLET PO PRN (22:30)
[2023-08-09] MEDS ORDERED: CALCIUM CARBONATE 500 MG CHEW TABLET PO PRN (22:30)
[2023-08-09] MEDS ORDERED: ANTACID SUSPENSION 30 ML UDC PO PRN (22:30)
[2023-08-09] MEDS ORDERED: diphenhydrAMINE 25 MG TABLET PO PRN (22:30)
[2023-08-09] MEDS ORDERED: cloNIDine 0.1 MG TABLET PO PRN (22:30)
[2023-08-09] MEDS ORDERED: ENOXAPARIN 100 MG/1 ML SYRINGE SC SCH (22:30)
[2023-08-09] MEDS ORDERED: ACETAMINOPHEN 325 MG TABLET PO PRN (22:30)
[2023-08-09] MEDS ORDERED: PATIENT MAY USE OWN MEDS, ALL PO SCH (22:30)
[2023-08-09] MEDS ORDERED: hydrALAZINE INJECTION 20 MG/ML VIAL IV PRN (22:30)
[2023-08-09] MEDS ORDERED: ONDANSETRON INJECTION 4 MG/2 ML (SDV) IV PRN (22:30)
[2023-08-09] MEDS ORDERED: LACTULOSE SYRUP 10GM/15ML 30ML UDC PO PRN (22:30)
[2023-08-09] MEDS ORDERED: ONDANSETRON 4 MG ORAL DISSOLVE TABLET PO PRN (22:30)
[2023-08-09] MEDS ORDERED: MELATONIN 3 MG TABLET PO PRN (22:30)
[2023-08-09] MEDS ORDERED: diphenhydrAMINE INJ 50 MG/ML VIAL IVP PRN (22:30)
[2023-08-09] MEDS ORDERED: HYDROmorphone INJECTION 2 MG/ML VIAL IV PRN (22:30)
[2023-08-09 23:05] VITALS: BP 154/90
[2023-08-09] MEDS: NS IV 1000 ML 1,000 ML IV SCH (23:22)
[2023-08-09 23:35] VITALS: BP 146/95
[2023-08-10] MEDS ORDERED: morphine INJ 4 MG/ML 1 ML (VIAL/SYRINGE) IVP PRN (00:30)
[2023-08-10 01:29] VITALS: BP 146/95
[2023-08-10] MEDS ORDERED: RT-Ipratropium/Albuterol NEB 3 ML VIAL INH PRN (01:45)
[2023-08-10 04:00] VITALS: BP 143/95
[2023-08-10 05:20] LABS: BASOPHILS % (AUTO) 1 % (0-10); EOSINOPHILS # (AUTO) 0.1 10^3/uL (0.0-0.3); EOSINOPHILS % (AUTO) 1 % (0-10); HEMATOCRIT 40 % (40-54); HEMOGLOBIN 13.5 g/dL (13.3-17.7); LYMPHOCYTES # (AUTO) 2.7 10^3/uL (1.0-4.0); LYMPHOCYTES % (AUTO) 42 % (12-44); MEAN CORPUSCULAR HEMOGLOBIN 32 pg (25-34); MEAN CORPUSCULAR HGB CONC 34 g/dL (32-36); MEAN CORPUSCULAR VOLUME 93 fL (80-99); MEAN PLATELET VOLUME 10.7 fL (9.0-12.2); MONOCYTES # (AUTO) 0.5 10^3/uL (0.0-1.0); MONOCYTES % (AUTO) 8 % (0-12); NEUTROPHILS # (AUTO) 3.2 10^3/uL (1.8-7.8); NEUTROPHILS % (AUTO) 48 % (42-75); PLATELET COUNT 142 10^3/uL (130-400); WHITE BLOOD COUNT 6.6 10^3/uL (4.3-11.0)
[2023-08-10 05:30] LABS: ALBUMIN 3.2 GM/DL (3.2-4.5); POTASSIUM 3.9 MMOL/L (3.6-5.0)
[2023-08-10 05:31] LABS: CALCIUM 8.1 MG/DL (8.5-10.1)
[2023-08-10 05:33] LABS: TOTAL PROTEIN 6.2 GM/DL (6.4-8.2)
[2023-08-10 05:34] LABS: BILIRUBIN,TOTAL 0.7 MG/DL (0.1-1.0)
[2023-08-10 05:36] LABS: CREATININE SERUM 1.19 MG/DL (0.60-1.30)
[2023-08-10] MEDS: inSUlin ASPART 1 UNIT/0.01 ML (PER UNIT) SC SCH ×4 (06:29→21:12)
[2023-08-10 07:39] VITALS: BP 162/97
[2023-08-10] MEDS: SENNOSIDES 8.6 MG TABLET PO SCH ×2 (09:00→21:00)
[2023-08-10] MEDS: DOCUSATE SODIUM 100 MG CAPSULE PO SCH ×2 (09:00→21:00)
[2023-08-10] MEDS ORDERED: ASPIRIN enteric coated 81MG TABLET PO SCH (09:00)
[2023-08-10] MEDS ORDERED: CLOPIDOGREL 75 MG TABLET PO SCH (09:00)
--- NOTE | 2023-08-10 10:03 | Consultation-Cardiology ---
HPI-Cardiology Cardiology Consultation Date of Consultation 08/10/23 Date of Admission Time Seen by Provider: 09:58 Indication: Chest pain HPI 62 years old gentleman with a history of coronary artery disease, has been having worsening chest pain recently, reporting as feeling tearing in his upper chest lasting for few seconds and resolving spontaneously. Started to have more persistent pain on the left upper side yesterday, did not respond to nitroglycerin or GI cocktail. This morning he is feeling better, has slight elevation in troponin. No shortness of breath. No palpitation. No syncope or near syncopal episodes. Home Medications & Allergies Allergies: Coded Allergies: linezolid (Verified Allergy, Unknown, 06/17/19) Home Medication List Reviewed: Yes [id number]-[id number]-Jtvwuv Hx Patient Social History Marital Status: Employed/Student: employed 2[employer] Smoke Exposure: No Recent Hopitalizations: Yes (Aug FOOT PARTIAL LEFT FOOT AMPUTATION) Alcohol Use?: No Immunizations Up To Date Tetanus Booster (TDap): Unknown Date of Pneumonia Vaccine: Aug 05, 2020 Date of Influenza Vaccine: Aug 05, 2020 Past Medical History Discussed below Family Medical History Significant Family History: COPD, Diabetes, Hypertension Family History: Family history: Cardiovascular disease 19 FATHER Family history: Diabetes mellitus 19 MOTHER Review of Systems-General Review of Systems Constitutional: no symptoms reported, see HPI EENTM: see HPI, no symptoms reported Respiratory: see HPI; No cough, No dyspnea on exertion, No hemoptysis, No orthopnea, No phlegm, No short of breath, No stridor, No wheezing, No other Cardiovascular: see HPI, chest pain Gastrointestinal: no symptoms reported, see HPI Genitourinary: no symptoms reported, see HPI Musculoskeletal: no symptoms reported, see HPI Skin: no symptoms reported, see HPI Psychiatric/Neurological: No Symptoms Reported, See HPI Reviewed Test Results Reviewed Test Results Lab Laboratory Tests Test 08/09/23 20:14 08/10/23 00:28 08/10/23 04:16 08/10/23 04:26 Range/Units White Blood Count 6.7 6.6 4.3-11.0 10^3/uL Red Blood Count 4.67 4.27 L 4.30-5.52 10^6/uL Hemoglobin 14.9 13.5 13.3-17.7 g/dL Hematocrit 43 40 40-54 % Mean Corpuscular Volume 92 93 80-99 fL Mean Corpuscular Hemoglobin 32 32 25-34 pg Mean Corpuscular Hemoglobin Concent 35 34 32-36 g/dL Red Cell Distribution Width 12.9 12.9 10.0-14.5 % Platelet Count 154 142 130-400 10^3/uL Mean Platelet Volume 10.0 10.7 9.0-12.2 fL Immature Granulocyte % (Auto) 1 1 % Neutrophils (%) (Auto) 52 48 42-75 % Lymphocytes (%) (Auto) 37 42 12-44 % Monocytes (%) (Auto) 8 8 0-12 % Eosinophils (%) (Auto) 2 1 0-10 % Basophils (%) (Auto) 0 1 0-10 % Neutrophils # (Auto) 3.5 3.2 1.8-7.8 10^3/uL Lymphocytes # (Auto) 2.5 2.7 1.0-4.0 10^3/uL Monocytes # (Auto) 0.6 0.5 0.0-1.0 10^3/uL Eosinophils # (Auto) 0.1 0.1 0.0-0.3 10^3/uL Basophils # (Auto) 0.0 0.0 0.0-0.1 10^3/uL Immature Granulocyte # (Auto) 0.0 0.0 0.0-0.1 10^3/uL Prothrombin Time 13.0 12.2-14.7 SEC INR Comment 1.0 0.8-1.4 Activated Partial Thromboplast Time 36 H 24-35 SEC D-Dimer 0.71 H 0.00-0.49 UG/ML Sodium Level 136 137 135-145 MMOL/L Potassium Level 4.2 3.9 3.6-5.0 MMOL/L Chloride Level 102 102 98-107 MMOL/L Carbon Dioxide Level 23 24 21-32 MMOL/L Anion Gap 11 11 5-14 MMOL/L Blood Urea Nitrogen 23 H 19 H 7-18 MG/DL Creatinine 1.35 H 1.19 0.60-1.30 MG/DL Estimat Glomerular Filtration Rate 60 70 BUN/Creatinine Ratio 17 16 Glucose Level 281 H 200 H 70-105 MG/DL Calcium Level 8.6 8.1 L 8.5-10.1 MG/DL Corrected Calcium 8.9 8.7 8.5-10.1 MG/DL Magnesium Level 1.9 1.6-2.4 MG/DL Total Bilirubin 1.0 0.7 0.1-1.0 MG/DL Aspartate Amino Transf (AST/SGOT) 32 115 H 5-34 U/L Alanine Aminotransferase (ALT/SGPT) 46 111 H 0-55 U/L Alkaline Phosphatase 96 105 40-136 U/L Total Creatine Kinase 253 H 30-200 U/L Creatine Kinase MB 6.8 *H <6.6 NG/ML Myoglobin 107.8 H 10.0-92.0 NG/ML Troponin I < 0.028 < 0.028 0.038 H <0.028 NG/ML B-Type Natriuretic Peptide 156.7 H <100.0 PG/ML Total Protein 7.1 6.2 L 6.4-8.2 GM/DL Albumin 3.6 3.2 3.2-4.5 GM/DL Amylase Level 38 25-125 U/L Lipase 150 H 8-78 U/L Triglycerides Level 186 H <150 MG/DL Cholesterol Level 125 < 200 MG/DL LDL Cholesterol Direct 41 1-129 MG/DL VLDL Cholesterol 37 5-40 MG/DL HDL Cholesterol 46 40-60 MG/DL Physical Exam Physical Exam Vital Signs Vital Signs - First Documented 08/09/23 08/10/23 20:13 02:22 Temp 36.6 Pulse 73 Resp 14 B/P (MAP) 172/102 (125) Pulse Ox 98 O2 Delivery Room Air O2 Flow Rate 2.00 Capillary Refill : Less Than 3 Seconds Height, Weight, BMI Height: 6'4.00" Weight: 240lbs. 3.0oz. 108.790918xt; 32.16 BMI Method:Stated General Appearance: No Apparent Distress, WD/WN Eyes: Bilateral Eye Normal Inspection, Bilateral Eye PERRL, Bilateral Eye EOMI HEENT: PERRL/EOMI, TMs Normal, Normal ENT Inspection, Pharynx Normal, Moist Mucous Membranes Neck: Full Range of Motion, Normal Inspection, Non Tender, Supple, Carotid Bruit Respiratory: Chest Non Tender, Normal Breath Sounds, No Accessory Muscle Use, No Respiratory Distress Cardiovascular: Regular Rate, Rhythm, No Edema, No Gallop, No JVD, No Murmur, Normal Peripheral Pulses Gastrointestinal: Normal Bowel Sounds, No Organomegaly, No Pulsatile Mass, Non Tender, Soft Back: Normal Inspection, No CVA Tenderness, No Vertebral Tenderness Extremity: Normal Capillary Refill, Normal Inspection, Normal Range of Motion, Non Tender, No Calf Tenderness, Other (Trace pedal edema, bilateral toes amputation) Neurologic/Psychiatric: Alert, Oriented x3, No Motor/Sensory Deficits, Normal Mood/Affect Skin: Normal Color, Warm/Dry Lymphatic: No Adenopathy A/P-Cardiology Admission Diagnosis Chest pain Non-ST elevation myocardial infarction Congestive heart failure Hypertension Assessment/Plan Chest pain, nonspecific etiology, history of chronic stable angina. Has been having persistent chest pain since yesterday. EKG did not show any acute changes Troponin is slightly elevated, non-ST elevation myocardial infarction Conservative management is recommended Discussed with Dr. Grewal, recommend evaluating EGD. Mild elevation in troponin level, known to have chronically occluded obtuse marginal branch. Conservative management is recommended Elevation in liver enzymes and lipase. Managed by primary care team. Coronary artery disease, history of multiple intervention, last cardiac catheterization was done on September 10, 2020 showing patent stent in the mid LAD, patent stent in the obtuse marginal branch, severe stenosis at the ostial first obtuse marginal branch/ramus intermedius which was too small for intervention and severe stenosis in the right coronary artery was successful stenting. Cardiac catheterization done on September 19, 2020 showing thrombus with total occlusion of the stent in the distal right coronary artery, successful thrombectomy followed by balloon angioplasty to the distal right coronary artery using 3.5 x 15 mm balloon with excellent results. Cardiac catheterization was done in April 2023 showing chronically occluded first obtuse marginal branch has not changed compared to previous study, patent stent in the mid LAD and distal right coronary artery with moderate disease nonobstructive disease, slightly prominent aortic arch. Congestive heart failure, chronic left ventricular systolic dysfunction. Compensated, ischemic cardiomyopathy 2D echo was done in April 2023 with normal left ventricular size, ejection fraction 45 to 50%, akinesia of the apex and anterior septum. Palpitation, feeling pounding in his heart and chest but normal rate and rhythm. Possibly secondary to anxiety. Reporting improvement. Continue to monitor Hypertension, restart home blood pressure medications and continue to monitor. Hyperlipidemia, maintained on statin as outpatient. Hold statin due to elevated liver enzymes Peripheral arterial disease, history of amputation of his left foot Diabetes mellitus, followed and managed by primary care physician Extensive peripheral arterial disease Depression, anxiety, managed by primary care physician Clinical Quality Measures AMI/AHF: ASA po Prior to arrival: JONH Garcia MD Aug 10, 2023 10:03
[2023-08-10] MEDS: ENOXAPARIN 120 MG/0.8 ML SYRINGE SQ SCH (10:58)
--- NOTE | 2023-08-10 11:44 | Consultation - Surgery ---
CHLOE ACEVES 08/10/23 1144: History of Present Illness History of Present Illness Patient Consulted On(dm/time) 08/10/23 11:39 Date Seen by Provider: Aug 10, 2023 Time Seen by Provider: 11:39 Reason for Visit: Surgery consult for possible EGD evaluation History of Present Illness 62-year-old male with hx of T2DM, cardiac stent placement, and HTN presented to the ED for chest pain. Surgery was consulted for possible EGD. Pain is localized to the chest and does not radiate. Describes it as a 6-7/10 tearing pain that has been intermittent, but is now constant. Nothing helps with it, nothing has made it better. No pain with palpation of abdomen in all quadrants & epigastric region. Denies changes in vision, headache, nausea, vomiting, dysphagia. Prior abdominal surgeries are appendectomy, cholecystectomy, and a hernia repair (2 months ago). Currently NPO and on aspirin. was in the room on patient visit. Portable radiology showed no cardiopulmonary processes. CTA of chest/thorax showed no abnormality in the chest, abdomen, pelvis. Allergies and Home Medications Allergies Coded Allergies: linezolid (Verified Allergy, Unknown, 06/17/19) Patient Home Medication List Home Medication List Reviewed: Yes Acetaminophen (Tylenol Extra Strength) 500 Mg Tablet, 1,000 MG PO HS, (Reported) Entered as Reported by: DINESH BARKSDALE on 01/02/19 1409 Last Action: Reviewed Aspirin (Aspirin EC) 81 Mg Tablet.dr, 81 MG PO DAILY, (Reported) Entered as Reported by: REDDY WANG on 04/25/23 1155 Last Action: Reviewed Atorvastatin Calcium (Atorvastatin Calcium) 80 Mg Tablet, 80 MG PO DAILY, (Reported) Entered as Reported by: DINESH BARKSDALE on 04/24/19 1531 Last Action: Reviewed Carvedilol (Carvedilol) 3.125 Mg Tablet, 3.125 MG PO BID, (Reported) Entered as Reported by: REDDY WANG on 04/25/23 1155 Last Action: Reviewed Clonazepam (Clonazepam) 1 Mg Tablet, 2 MG PO HS, (Reported) Entered as Reported by: GIUSEPPE MIRANDA on 01/29/17 1551 Last Action: Continued Clopidogrel Bisulfate (Clopidogrel) 75 Mg Tablet, 75 MG PO DAILY, (Reported) Entered as Reported by: REDDY WANG on 04/25/23 115 Last Action: Reviewed Ezetimibe (Ezetimibe) 10 Mg Tablet, 10 MG PO DAILY, (Reported) Entered as Reported by: REDDY WANG on 04/25/23 115 Last Action: Reviewed Finasteride (Finasteride) 5 Mg Tablet, 5 MG PO HS, (Reported) Entered as Reported by: REDDY WANG on 09/20/20 1306 Last Action: Continued Insulin Degludec (Tresiba Flextouch U-200) 200 Unit/Ml (3 Ml) Insuln.pen, 65 UNITS SC DAILY, (Reported) Entered as Reported by: DINESH BARKSDALE on 01/02/19 1402 Last Action: Reviewed Insulin Lispro (Humalog Kwikpen) 100 Unit/Ml Insuln.pen, 15 UNITS SC AC, (Reported) Entered as Reported by: REDDY WANG on 04/25/23 115 Last Action: Reviewed Pantoprazole Sodium (Protonix) 40 Mg Granpkt.dr, 40 MG PO DAILY Prescribed by: JONH PATEL on 04/25/23 1418 Last Action: Reviewed Ranolazine (Ranolazine ER) 500 Mg Tab.er.12h, 500 MG PO BID, (Reported) Entered as Reported by: DINESH BARKSDALE on 06/17/19 0904 Last Action: Reviewed Past Adgvqss-Qzcopf-Qrptpu Hx Patient Social History 2nd Hand Smoke Exposure: No Recent Hopitalizations: Yes (Aug FOOT PARTIAL LEFT FOOT AMPUTATION) Alcohol Use?: No Immunizations Up To Date Tetanus Booster (TDap): Unknown PED Vaccines UTD: No Date of Pneumonia Vaccine: Aug 05, 2020 Date of Influenza Vaccine: Aug 05, 2020 Seasonal Allergies Seasonal Allergies: No Surgeries History of Surgeries: Yes (ACL REPAIR;WRIST SURGERY;CARDIAC CATH--STENTS; BILAT FOREFOOT AMPUTATION) Surgeries: Abdominal, Amputation, Appendectomy, Cardiac, Coronary Stent, Gallbladder, Orthopedic, Tonsillectomy Respiratory History of Respiratory Disorde: No Cardiovascular History of Cardiac Disorders: Yes (CARDIAC CATHS--STENTS X 3-OM2, LAC, RCA) Cardiac Disorders: Cardiomyopathy, Coronary Artery Disease, Heart Attack, High Cholesterol, Hypertension Neurological History of Neurological Disord: Yes Neurological Disorders: Neuropathy, Stroke Reproductive System Hx Reproductive Disorders: No Sexually Transmitted Disease: No HIV/AIDS: No Genitourinary History of Genitourinary Disor: Yes Genitourinary Disorders: Kidney Stones Gastrointestinal History of Gastrointestinal Di: Yes Gastrointestinal Disorders: Abdominal Hernia Musculoskeletal History of Musculoskeletal Dis: Yes (OSTEOMYELITIS WITH ALL TOES AMPUTATED; BACK FUSION X 3) Musculoskeletal Disorders: Degenerate Disk Disease, Arthritis, Chronic Back Pain Endocrine History of Endocrine Disorders: Yes Endocrine Disorders: Diabetes, Insulin dep HEENT History of HEENT Disorders: Yes (R EYE BLOOD CLOT/PARTIAL BLINDNESS) Loss of Vision: Denies Hearing Impairment: Denies Cancer History of Cancer: No Psychosocial History of Psychiatric Problem: Yes Behavioral Health Disorders: Anxiety, Depression Integumentary History of Skin or Integumenta: Yes (FOOT ULCERS/OSTEOMYELITIS; MULTIPLE SURGICAL WOUND INFECTIONS) Blood Transfusions History of Blood Disorders: No Adverse Reaction to a Blood Tr: No Family Medical History Significant Family History: COPD, Diabetes, Hypertension Family Medial History: Family history: Cardiovascular disease 19 FATHER Family history: Diabetes mellitus 19 MOTHER Review of Systems-General Constitutional: No chills, No fever EENTM: No blurred vision, No throat pain Respiratory: No cough, No short of breath Cardiovascular: chest pain; No edema Gastrointestinal: No dysphagia, No nausea, No vomiting Genitourinary: No dysuria, No frequency Musculoskeletal: back pain; No joint swelling Skin: No change in color, No dryness Psychiatric/Neurological: Denies Anxiety, Denies Headache Physical Exam-General Problems Physical Exam Vital Signs Vital Signs - First Documented 08/09/23 08/10/23 20:13 02:22 Temp 36.6 Pulse 73 Resp 14 B/P (MAP) 172/102 (125) Pulse Ox 98 O2 Delivery Room Air O2 Flow Rate 2.00 Capillary Refill : Less Than 3 Seconds General Appearance: WD/WN, no apparent distress Eyes: Bilateral Eye Normal Inspection, Bilateral Eye PERRL, Bilateral Eye EOMI HEENT: pharynx normal; No scleral icterus (R) Neck: supple, normal inspection Respiratory: lungs clear, normal breath sounds, no respiratory distress, no accessory muscle use Cardiovascular: normal peripheral pulses, regular rate, rhythm, no murmur Peripheral Pulses: 2+ Dorsalis Pedis (R), 2+ Left Dors-Pedis (L), 2+ Radial Pulses (R), 2+ Radial Pulses (L) Gastrointestinal: soft, no pulsatile mass; No distended, No tenderness, No mass Extremities: non-tender, normal inspection Neurologic/Psychiatric: alert, normal mood/affect, oriented x 3 Skin: normal color, warm/dry Data Review Labs Laboratory Tests 08/09/23 20:14: White Blood Count 6.7, Red Blood Count 4.67, Hemoglobin 14.9, Hematocrit 43, Mean Corpuscular Volume 92, Mean Corpuscular Hemoglobin 32, Mean Corpuscular Hemoglobin Concent 35, Red Cell Distribution Width 12.9, Platelet Count 154, Mean Platelet Volume 10.0, Immature Granulocyte % (Auto) 1, Neutrophils (%) (Auto) 52, Lymphocytes (%) (Auto) 37, Monocytes (%) (Auto) 8, Eosinophils (%) (Auto) 2, Basophils (%) (Auto) 0, Neutrophils # (Auto) 3.5, Lymphocytes # (Auto) 2.5, Monocytes # (Auto) 0.6, Eosinophils # (Auto) 0.1, Basophils # (Auto) 0.0, Immature Granulocyte # (Auto) 0.0, Prothrombin Time 13.0, INR Comment 1.0, Activated Partial Thromboplast Time 36H, D-Dimer 0.71H, Sodium Level 136, Potassium Level 4.2, Chloride Level 102, Carbon Dioxide Level 23, Anion Gap 11, Blood Urea Nitrogen 23H, Creatinine 1.35H, Estimat Glomerular Filtration Rate 60, BUN/Creatinine Ratio 17, Glucose Level 281H, Calcium Level 8.6, Corrected Calcium 8.9, Magnesium Level 1.9, Total Bilirubin 1.0, Aspartate Amino Transf (AST/SGOT) 32, Alanine Aminotransferase (ALT/SGPT) 46, Alkaline Phosphatase 96, Total Creatine Kinase 253H, Creatine Kinase MB 6.8*H, Myoglobin 107.8H, Troponin I < 0.028, B-Type Natriuretic Peptide 156.7H, Total Protein 7.1, Albumin 3.6, Amylase Level 38, Lipase 150H 08/10/23 00:28: Troponin I < 0.028 08/10/23 04:16: Sodium Level 137, Potassium Level 3.9, Chloride Level 102, Carbon Dioxide Level 24, Anion Gap 11, Blood Urea Nitrogen 19H, Creatinine 1.19, Estimat Glomerular Filtration Rate 70, BUN/Creatinine Ratio 16, Glucose Level 200H, Calcium Level 8.1L, Corrected Calcium 8.7, Total Bilirubin 0.7, Aspartate Amino Transf (AST/SGOT) 115H, Alanine Aminotransferase (ALT/SGPT) 111H, Alkaline Phosphatase 105, Troponin I 0.038H, Total Protein 6.2L, Albumin 3.2, Triglycerides Level 186H, Cholesterol Level 125, LDL Cholesterol Direct 41, VLDL Cholesterol 37, HDL Cholesterol 46 08/10/23 04:26: White Blood Count 6.6, Red Blood Count 4.27L, Hemoglobin 13.5, Hematocrit 40, Mean Corpuscular Volume 93, Mean Corpuscular Hemoglobin 32, Mean Corpuscular Hemoglobin Concent 34, Red Cell Distribution Width 12.9, Platelet Count 142, Mean Platelet Volume 10.7, Immature Granulocyte % (Auto) 1, Neutrophils (%) (Auto) 48, Lymphocytes (%) (Auto) 42, Monocytes (%) (Auto) 8, Eosinophils (%) (Auto) 1, Basophils (%) (Auto) 1, Neutrophils # (Auto) 3.2, Lymphocytes # (Auto) 2.7, Monocytes # (Auto) 0.5, Eosinophils # (Auto) 0.1, Basophils # (Auto) 0.0, Immature Granulocyte # (Auto) 0.0 08/10/23 10:44: Glucometer 138H Assessment/Plan Assessment/Plan Assessment/Plan Chest pain Possible esophageal pathology HTN NPO EGD unlikely due to pt. on DAPT Protonix Sucralfate Clinical Quality Measures AMI/AHF: ASA po Prior to arrival: ADRIANO Marrufo DO 08/10/23 2210: History of Present Illness History of Present Illness History of Present Illness 62 year old male with 3 weeks of pain in middle of chest/epigastric region. Comes and goes. Tearing pain. Varies in intensity but about 6-7/10 when occurs. No radiation of pain. Nothing has made it better or worse. Is on Protonix for GERD but he states it's different than his typical GERD. Had Gi cocktail in ER he states and didn't make any difference. I discussed with Dr. Patel who does not feel cardiac in nature. He is on Plavix and ASA. Had cta chest abd pelvis and it was normal. Allergies and Home Medications Allergies Coded Allergies: linezolid (Verified Allergy, Unknown, 06/17/19) Patient Home Medication List Home Medication List Reviewed: Yes Acetaminophen (Tylenol Extra Strength) 500 Mg Tablet, 1,000 MG PO HS, (Reported) Entered as Reported by: DINESH BARKSDALE on 01/02/19 1409 Last Action: Reviewed Aspirin (Aspirin EC) 81 Mg Tablet.dr, 81 MG PO DAILY, (Reported) Entered as Reported by: REDDY WANG on 04/25/23 115 Last Action: Reviewed Atorvastatin Calcium (Atorvastatin Calcium) 80 Mg Tablet, 80 MG PO DAILY, (Reported) Entered as Reported by: DINESH BARKSDALE on 04/24/19 1531 Last Action: Reviewed Carvedilol (Carvedilol) 3.125 Mg Tablet, 3.125 MG PO BID, (Reported) Entered as Reported by: REDDY WANG on 04/25/231154 Last Action: Reviewed Clonazepam (Clonazepam) 1 Mg Tablet, 2 MG PO HS, (Reported) Entered as Reported by: GIUSEPPE MIRANDA on 01/29/17 1551 Last Action: Continued Clopidogrel Bisulfate (Clopidogrel) 75 Mg Tablet, 75 MG PO DAILY, (Reported) Entered as Reported by: REDDY WANG on 04/25/231154 Last Action: Reviewed Ezetimibe (Ezetimibe) 10 Mg Tablet, 10 MG PO DAILY, (Reported) Entered as Reported by: REDDY WANG on 04/25/231154 Last Action: Reviewed Finasteride (Finasteride) 5 Mg Tablet, 5 MG PO HS, (Reported) Entered as Reported by: REDDY WANG on 09/20/20 1306 Last Action: Continued Insulin Degludec (Tresiba Flextouch U-200) 200 Unit/Ml (3 Ml) Insuln.pen, 65 UNITS SC DAILY, (Reported) Entered as Reported by: DINESH BARKSDALE on 01/02/19 1402 Last Action: Reviewed Insulin Lispro (Humalog Kwikpen) 100 Unit/Ml Insuln.pen, 15 UNITS SC AC, (Reported) Entered as Reported by: REDDY WANG on 04/25/231154 Last Action: Reviewed Pantoprazole Sodium (Protonix) 40 Mg Granpkt.dr, 40 MG PO DAILY Prescribed by: JONH PATEL on 04/25/23 1418 Last Action: Reviewed Ranolazine (Ranolazine ER) 500 Mg Tab.er.12h, 500 MG PO BID, (Reported) Entered as Reported by: DINESH BARKSDALE on 06/17/19 0904 Last Action: Reviewed Past Bcewzoy-Vbgobi-Asxraz Hx Family Medical History Family Medial History: Family history: Cardiovascular disease 19 FATHER Family history: Diabetes mellitus 19 MOTHER Review of Systems-General Constitutional: No chills, No fever EENTM: No blurred vision, No double vision Respiratory: No cough, No short of breath Cardiovascular: chest pain Gastrointestinal: No dysphagia, No nausea, No vomiting Genitourinary: No dysuria, No frequency Musculoskeletal: back pain; No joint swelling Skin: No change in color, No dryness Psychiatric/Neurological: Denies Anxiety, Denies Headache All Other Systems Reviewed Negative Unless Noted: Yes (Negative excepted noted.) Physical Exam-General Problems Physical Exam General Appearance: WD/WN, no apparent distress HEENT: PERRL/EOMI, normal ENT inspection Neck: supple, normal inspection Respiratory: chest non-tender, no respiratory distress, no accessory muscle use Cardiovascular: regular rate, rhythm, no JVD Gastrointestinal: soft; No tenderness Back: normal inspection, no CVA tenderness Extremities: normal range of motion, normal inspection, swelling (minimal, parital foot amputations) Neurologic/Psychiatric: alert, normal mood/affect, oriented x 3 Skin: normal color, warm/dry Lymphatic: no adenopathy Assessment/Plan Assessment/Plan Assessment/Plan Chest pain/epigastric pain Possible esophageal pathology vs musculoskeletal GERD HTN Long-term current antiplatelets Start diet as tolerates EGD will plan for Sunday if can Hold antiplatelets, can do as outpatient. Protonix bid Carafate qid Patient and in agreement with plan. Supervisory-Addendum Brief Verification & Attestation Participated in pt care: history, MDM, physical Personally performed: exam, history, MDM, supervision of care Care discussed with: Medical Student Procedures: n/a Results interpretation: Verified all documentation Verification and Attestation of Medical Student E/M Service A medical student performed and documented this service in my presence. I reviewed and verified all information documented by the medical student and made modifications to such information, when appropriate. I personally performed the physical exam and medical decision making. Adriano Starr, Aug 10, 2023,22:17 CHLOE ACEVES Aug 10, 2023 11:44 ADRIANO STARR DO Aug 10, 2023 22:10
[2023-08-10 11:46] VITALS: BP 141/80
--- NOTE | 2023-08-10 12:27 | History & Physical ---
SIENA FORD 08/10/23 1227: History of Present Illness History of Present Illness Reason for visit/HPI 62 year old male with history of type 2 diabetes, hypertension, and previous cardiac stent placement. Patient had chest wall that was described as tearing, that has been intermittent for 2 weeks, however, now it is constant. Pain is localized to the chest, sternal area, and does not radiate. Cardiology and surgery consulted. Patient reports no nausea, fever, chills, or shortness of breath. Patient is currently NPO and on aspirin. Cardiology and surgery consulted. Date of Admission Aug 09, 2023 at 21:56 Time Seen by a Provider: 12:26 I consulted on this patient on 08/10/23 12:22 Attending Physician Melida Ha MD Admitting Physician Admitting Physician: Indy Giron DO Attending Physician: Indy Giron DO Consult Allergies and Home Medications Allergies Coded Allergies: linezolid (Verified Allergy, Unknown, 06/17/19) Patient Home Medication List Home Medication List Reviewed: Yes Acetaminophen (Tylenol Extra Strength) 500 Mg Tablet, 1,000 MG PO HS, (Reported) Entered as Reported by: DINESH BARKSDALE on 01/02/19 1409 Last Action: Reviewed Aspirin (Aspirin EC) 81 Mg Tablet.dr, 81 MG PO DAILY, (Reported) Entered as Reported by: REDDY WANG on 04/25/23 115 Last Action: Reviewed Atorvastatin Calcium (Atorvastatin Calcium) 80 Mg Tablet, 80 MG PO DAILY, (Reported) Entered as Reported by: DINESH BARKSDALE on 04/24/19 1531 Last Action: Reviewed Carvedilol (Carvedilol) 3.125 Mg Tablet, 3.125 MG PO BID, (Reported) Entered as Reported by: REDDY WANG on 04/25/23 115 Last Action: Reviewed Clonazepam (Clonazepam) 1 Mg Tablet, 2 MG PO HS, (Reported) Entered as Reported by: GIUSEPPE MIRANDA on 01/29/17 1551 Last Action: Continued Clopidogrel Bisulfate (Clopidogrel) 75 Mg Tablet, 75 MG PO DAILY, (Reported) Entered as Reported by: REDDY WANG on 04/25/23 115 Last Action: Reviewed Ezetimibe (Ezetimibe) 10 Mg Tablet, 10 MG PO DAILY, (Reported) Entered as Reported by: REDDY WANG on 04/25/23 1155 Last Action: Reviewed Finasteride (Finasteride) 5 Mg Tablet, 5 MG PO HS, (Reported) Entered as Reported by: REDDY WANG on 09/20/20 1306 Last Action: Continued Insulin Degludec (Tresiba Flextouch U-200) 200 Unit/Ml (3 Ml) Insuln.pen, 65 UNITS SC DAILY, (Reported) Entered as Reported by: DINESH BARKSDALE on 01/02/19 1402 Last Action: Reviewed Insulin Lispro (Humalog Kwikpen) 100 Unit/Ml Insuln.pen, 15 UNITS SC AC, (Reported) Entered as Reported by: REDDY WANG on 04/25/23 1155 Last Action: Reviewed Pantoprazole Sodium (Protonix) 40 Mg Granpkt.dr, 40 MG PO DAILY Prescribed by: JONH MARIA on 04/25/23 1418 Last Action: Reviewed Ranolazine (Ranolazine ER) 500 Mg Tab.er.12h, 500 MG PO BID, (Reported) Entered as Reported by: DINESH BARKSDALE on 06/17/19 0904 Last Action: Reviewed Past Uyfntql-Klgfql-Nbdgor Hx Patient Social History Marrital Status: Employed/Student: employed Tobacco Use?: No Substance use?: No Alcohol Use?: No Pt feels they are or have been: No Immunizations Up To Date Date of Influenza Vaccine: Aug 05, 2020 First/Initial COVID19 Vaccinat: YES Second COVID19 Vaccination Eduard: YES Tetanus Booster (TDap): Unknown Hepatitis B: No PED Vaccines UTD: No Date of Pneumonia Vaccine: Aug 05, 2020 Seasonal Allergies Seasonal Allergies: No Current Status Advance Directives: No Communicates: Verbally Primary Language: Danish Preferred Spoken Language: Danish Is interpretation needed?: No Past Medical History Surgeries: Abdominal, Amputation, Appendectomy, Cardiac, Coronary Stent, Gallbladder, Orthopedic, Tonsillectomy Currently Using CPAP: No Currently Using BIPAP: No Cardiomyopathy, Coronary Artery Disease, Heart Attack, High Cholesterol, Hypertension Neuropathy, Stroke Sexually Transmitted Disease: No HIV/AIDS: No Kidney Stones Abdominal Hernia Degenerate Disk Disease, Arthritis, Chronic Back Pain Diabetes, Insulin dep Loss of Vision: Denies Hearing Impairment: Denies Anxiety, Depression Blood Disorders: No Adverse Reaction/Blood Tranf: No Family Medical History Family history: Cardiovascular disease 19 FATHER Family history: Diabetes mellitus 19 MOTHER COPD, Diabetes, Hypertension PSH: -BILATERAL KNEE SCOPES, WITH OPEN LEFT ACL REPAIR -ALL TOES AMPUTATED BILATERAL FEET -MULTIPLE DEBRIDEMENTS OF FOOT ULCERS -MULTIPLE CARDIAC CATHS-- ANGIOPLASTIES AND STENTS X 3--STENT TO [facility] 05/2018, THEN TRANSFERED TO [facility] AND HAD STENT TO LAD ( COMPLICATED BY SEPSIS DUE TO LEFT FOOT ULCER AND WAS INTUBATED AND HAD PROLONGED HOSPITALIZATIONS/REHAB, AND HAD TOE AMPUTATION) ; HAD STENT TO [facility] 01/02/19 -BACK SURGERY/FUSION X 3 -TONSILLECTOMY -APPENDECTOMY -CHOLECYSTECTOMY -HERNIA REPAIR WITH INFECTION/COMPLICATIONS -PORT RIGHT CHEST PLACED/REMOVED DUE TO INFECTION -MANY TEETH REMOVED Review of Systems Constitutional: No chills, No diaphoresis EENTM: No ear discharge, No hearing loss Respiratory: No cough, No dyspnea on exertion Cardiovascular: chest pain Gastrointestinal: No RUQ, No LUQ, No RLQ, No LLQ Genitourinary: No decreased output, No discharge Physical Exam Vital Signs Vital Signs - First Documented 08/09/23 08/10/23 20:13 02:22 Temp 36.6 Pulse 73 Resp 14 B/P (MAP) 172/102 (125) Pulse Ox 98 O2 Delivery Room Air O2 Flow Rate 2.00 Capillary Refill : Less Than 3 Seconds Height, Weight, BMI Height: 6'4.00" Weight: 240lbs. 3.0oz. [id number]; 32.16 BMI Method:Stated Assessment/Plan Assessment and Plan Assessment Chest pain HTN Esophageal pathology Plan EGD NPO Consult Cardiology Consult Surgery Admission Diagnosis Admission Status: Inpatient Order (span 2 midnights) Clinical Quality Measures AMI/AHF: ASA po Prior to arrival: No INDY GIRON DO 08/10/232127: History of Present Illness History of Present Illness Reason for visit/HPI Chief complaint: Chest pain HPI: This is a 62-year-old male clinic patient of Dr. Ha who has a past medical history peripheral vascular disease and heart disease who presented to the ER with chest pain Cardiology has been consulted along with general surgery for possible EGD reported. Allergies and Home Medications Allergies Coded Allergies: linezolid (Verified Allergy, Unknown, 06/17/19) Patient Home Medication List Home Medication List Reviewed: Yes Acetaminophen (Tylenol Extra Strength) 500 Mg Tablet, 1,000 MG PO HS, (Reported) Entered as Reported by: DNIESH BARKSDALE on 01/02/19 1409 Last Action: Reviewed Aspirin (Aspirin EC) 81 Mg Tablet.dr, 81 MG PO DAILY, (Reported) Entered as Reported by: REDDY WANG on 04/25/23 115 Last Action: Reviewed Atorvastatin Calcium (Atorvastatin Calcium) 80 Mg Tablet, 80 MG PO DAILY, (Reported) Entered as Reported by: DINESH BARKSDALE on 04/24/19 1531 Last Action: Reviewed Carvedilol (Carvedilol) 3.125 Mg Tablet, 3.125 MG PO BID, (Reported) Entered as Reported by: REDDY WANG on 04/25/231154 Last Action: Reviewed Clonazepam (Clonazepam) 1 Mg Tablet, 2 MG PO HS, (Reported) Entered as Reported by: GIUSEPPE MIRANDA on 01/29/17 1551 Last Action: Continued Clopidogrel Bisulfate (Clopidogrel) 75 Mg Tablet, 75 MG PO DAILY, (Reported) Entered as Reported by: REDDY WANG on 04/25/231154 Last Action: Reviewed Ezetimibe (Ezetimibe) 10 Mg Tablet, 10 MG PO DAILY, (Reported) Entered as Reported by: REDDY WANG on 04/25/231154 Last Action: Reviewed Finasteride (Finasteride) 5 Mg Tablet, 5 MG PO HS, (Reported) Entered as Reported by: REDDY WANG on 09/20/20 1306 Last Action: Continued Insulin Degludec (Tresiba Flextouch U-200) 200 Unit/Ml (3 Ml) Insuln.pen, 65 UNITS SC DAILY, (Reported) Entered as Reported by: DINESH BARKSDALE on 01/02/19 1402 Last Action: Reviewed Insulin Lispro (Humalog Kwikpen) 100 Unit/Ml Insuln.pen, 15 UNITS SC AC, (Reported) Entered as Reported by: REDDY WANG on 04/25/231154 Last Action: Reviewed Pantoprazole Sodium (Protonix) 40 Mg Granpkt.dr, 40 MG PO DAILY Prescribed by: JONH MARIA on 04/25/23 1418 Last Action: Reviewed Ranolazine (Ranolazine ER) 500 Mg Tab.er.12h, 500 MG PO BID, (Reported) Entered as Reported by: DINESH BARKSDALE on 06/17/19 0904 Last Action: Reviewed Past Oavxrcr-Bvijbg-Wcukuj Hx Patient Social History Marrital Status: Employed/Student: employed Family Medical History Family history: Cardiovascular disease 19 FATHER Family history: Diabetes mellitus 19 MOTHER Review of Systems Constitutional: see HPI Cardiovascular: chest pain Physical Exam General Appearance: No Apparent Distress, WD/WN, Chronically ill Eyes: Bilateral Eye Normal Inspection, Bilateral Eye PERRL, Bilateral Eye EOMI HEENT: PERRL/EOMI, Normal ENT Inspection, Pharynx Normal Neck: Full Range of Motion, Normal Inspection, Non Tender, Supple, Carotid Bruit Respiratory: Chest Non Tender, Lungs Clear, Normal Breath Sounds, No Accessory Muscle Use, No Respiratory Distress Cardiovascular: Regular Rate, Rhythm, No Edema, No Gallop, No JVD, No Murmur, Normal Peripheral Pulses Gastrointestinal: Normal Bowel Sounds, No Organomegaly, No Pulsatile Mass, Non Tender, Soft Back: Normal Inspection, No CVA Tenderness, No Vertebral Tenderness Extremity: Normal Capillary Refill, Normal Inspection, Normal Range of Motion, Non Tender, No Calf Tenderness, No Pedal Edema, Other (bilateral toe amputations) Neurologic/Psychiatric: Alert, Oriented x3, No Motor/Sensory Deficits, Normal Mood/Affect Skin: Normal Color, Warm/Dry Lymphatic: No Adenopathy Assessment/Plan Assessment and Plan Chest pain Elevated troponin DM CAD PVD Plan: Monitor closely Admission Diagnosis Admission Status: Observation Supervisory-Addendum Brief Verification & Attestation Participated in pt care: history, MDM, physical Personally performed: exam, history, MDM, supervision of care Care discussed with: Medical Student Procedures: n/a Results interpretation: Verified all documentation Verification and Attestation of Medical Student E/M Service A medical student performed and documented this service in my presence. I reviewed and verified all information documented by the medical student and made modifications to such information, when appropriate. I personally performed the physical exam and medical decision making. Indy Giron, Aug 10, 2023,21:28 SIENA FORD Aug 10, 2023 12:27 INDY GIRON DO Aug 10, 2023 21:28
[2023-08-10] MEDS: NS IV 1000 ML 1,000 ML IV SCH (15:53)
[2023-08-10 16:00] VITALS: BP 139/88
[2023-08-10] MEDS ORDERED: SUCRALFATE 1 GM TABLET PO NR (18:00)
[2023-08-10 19:37] VITALS: BP 135/97
[2023-08-10] MEDS ORDERED: clonazePAM 1 MG TABLET PO SCH (21:00)
[2023-08-10] MEDS: PANTOPRAZOLE INJECTION 40 MG VIAL IV SCH (21:00)
[2023-08-10] MEDS ORDERED: FINASTERIDE 5 MG TABLET PO SCH (21:00)
[2023-08-10] MEDS: SUCRALFATE 1 GM TABLET PO SCH (21:01)
[2023-08-11] VITALS: BP 157/94
[2023-08-11] MEDS: ENOXAPARIN 120 MG/0.8 ML SYRINGE SQ SCH ×2 (00:17→10:44)
[2023-08-11 04:00] VITALS: BP 150/100
[2023-08-11 05:06] LABS: BASOPHILS % (AUTO) 0 % (0-10); EOSINOPHILS # (AUTO) 0.1 10^3/uL (0.0-0.3); EOSINOPHILS % (AUTO) 1 % (0-10); HEMATOCRIT 45 % (40-54); HEMOGLOBIN 15.1 g/dL (13.3-17.7); LYMPHOCYTES % (AUTO) 42 % (12-44); MEAN CORPUSCULAR HEMOGLOBIN 31 pg (25-34); MEAN CORPUSCULAR HGB CONC 34 g/dL (32-36); MEAN CORPUSCULAR VOLUME 92 fL (80-99); MEAN PLATELET VOLUME 10.4 fL (9.0-12.2); MONOCYTES # (AUTO) 0.6 10^3/uL (0.0-1.0); MONOCYTES % (AUTO) 9 % (0-12); NEUTROPHILS # (AUTO) 3.4 10^3/uL (1.8-7.8); NEUTROPHILS % (AUTO) 48 % (42-75); PLATELET COUNT 155 10^3/uL (130-400); WHITE BLOOD COUNT 7.1 10^3/uL (4.3-11.0)
[2023-08-11 05:27] LABS: ALBUMIN 3.3 GM/DL (3.2-4.5); POTASSIUM 4.4 MMOL/L (3.6-5.0)
[2023-08-11 05:29] LABS: CALCIUM 8.6 MG/DL (8.5-10.1)
[2023-08-11 05:30] LABS: TOTAL PROTEIN 6.6 GM/DL (6.4-8.2)
[2023-08-11 05:33] LABS: CREATININE SERUM 1.06 MG/DL (0.60-1.30)
[2023-08-11] MEDS: inSUlin ASPART 1 UNIT/0.01 ML (PER UNIT) SC SCH ×2 (05:36→10:43)
[2023-08-11 08:00] VITALS: BP 131/101
[2023-08-11] MEDS: PANTOPRAZOLE INJECTION 40 MG VIAL IV SCH (08:58)
[2023-08-11] MEDS: SUCRALFATE 1 GM TABLET PO SCH (08:58)
[2023-08-11] MEDS: DOCUSATE SODIUM 100 MG CAPSULE PO SCH (08:59)
[2023-08-11] MEDS: SENNOSIDES 8.6 MG TABLET PO SCH (09:00)
--- NOTE | 2023-08-11 09:08 | Progress Note ---
WAYLON KOHLI MD,RESIDENT 08/11/23 0908: Progress Note Pt is a 62y male with a medical history significant for CAD, T2DM, who presented to the ED for progressive, tearing, sternal chest pain for the last few days. He was admitted to the ICU and cardiology was consulted. EKG was unremarkable for acute processes, troponins with mild elevation, likely related to chronic CAD, CXR unremarkable. Pt remained on RA throughout his stay. Blood Bank Order Control Clerk suspected esophageal etiology of pain vs cardiac process. General surgery consulted for EGD outpatient, plavix and ASA will be held for 5 days pre-procedure. No acute events during hospital stay. Pt was deemed medically stable for discharge on 08/11/23, with outpatient follow-up with PCP in 7 days, as well as EGD and cardiology follow-up. NAKUL GIRON DO 08/11/23 1844: Progress Note I personally performed the mckeon portions of the visit, discussed case with resident and concur with resident documentation of history, physical exam, assessment and treatment plan unless otherwise noted. WAYLON KOHLI MD,RESIDENT Aug 11, 2023 09:08 NAKUL GIRON DO Aug 11, 2023 18:44
[2023-08-11] MEDS ORDERED: SUCR1TAB PO (09:25)
[2023-08-11] MEDS ORDERED: ASPI-1238 PO (09:25)
[2023-08-11] MEDS ORDERED: CLOP75TA28 PO (09:25)
[2023-08-11] MEDS ORDERED: PANT40SU PO (09:25)
[2023-08-11 12:00] VITALS: BP 155/89
--- NOTE | 2023-08-11 12:14 | Progress Note - Cardiology ---
Cardiology SOAP Progress Note Subjective: No cp or palp or syncope No n/v/d No focal weakness Epigastric discomfort has resolved No swelling Gen weakness is improving Wishes to go home Objective: I&O/Vital Signs 08/11/23 08/11/23 08/11/23 08/11/23 01:00 04:00 07:00 08:00 Temp 36.2 Pulse 80 88 84 82 Resp 18 16 B/P (MAP) 150/100 (117) 131/101 (111) Pulse Ox 97 97 O2 Delivery Room Air Room Air 08/11/23 08:00 Pulse 83 B/P (MAP) 131/101 (111) Pulse Ox 99 O2 Delivery Room Air 08/11/23 00:00 Intake Total 0 ml Output Total 2550 ml Balance -2550 ml Weight (Pounds): 240 Weight (Ounces): 3.0 Weight (Calculated Kilograms): 108.783370 Constitutional: AAO x 3, well-developed, well-nourished Respiratory: No accessory muscle use; chest expansion is symmetric, chest is bilaterally symmetric, other (good, bilat air entry) Cardiovascular: regular rate-rhythm, S1 and S2, systolic murmur (faint LILIAN at card base) Gastrointestional: soft; No guarding, No rebound; other (mild epigastric ternderness) Extremities: No clubbing, No cyanosis, No significant edema Neurologic/Psychiatric: oriented x 3, other (moves all limbs equally) Skin: normal color; No cyanosis, No cool, No diaphoresis, No rash on exposed areas, No ulcerations on exposed areas Results/Procedures: Labs Laboratory Tests 08/10/23 15:46: Glucometer 94 08/10/23 20:58: Glucometer 189H 08/11/23 04:12: White Blood Count 7.1, Red Blood Count 4.84, Hemoglobin 15.1, Hematocrit 45, Mean Corpuscular Volume 92, Mean Corpuscular Hemoglobin 31, Mean Corpuscular Hemoglobin Concent 34, Red Cell Distribution Width 13.0, Platelet Count 155, Mean Platelet Volume 10.4, Immature Granulocyte % (Auto) 0, Neutrophils (%) (Auto) 48, Lymphocytes (%) (Auto) 42, Monocytes (%) (Auto) 9, Eosinophils (%) (Auto) 1, Basophils (%) (Auto) 0, Neutrophils # (Auto) 3.4, Lymphocytes # (Auto) 3.0, Monocytes # (Auto) 0.6, Eosinophils # (Auto) 0.1, Basophils # (Auto) 0.0, Immature Granulocyte # (Auto) 0.0, Sodium Level 141, Potassium Level 4.4, Chloride Level 105, Carbon Dioxide Level 26, Anion Gap 10, Blood Urea Nitrogen 14, Creatinine 1.06, Estimat Glomerular Filtration Rate 80, BUN/Creatinine Ratio 13, Glucose Level 137H, Calcium Level 8.6, Corrected Calcium 9.2, Total Bilirubin 1.0, Aspartate Amino Transf (AST/SGOT) 46H, Alanine Aminotransferase (ALT/SGPT) 79H, Alkaline Phosphatase 105, Total Protein 6.6, Albumin 3.3 08/11/23 10:14: Glucometer 273H A/P: Assessment: Epigastric pain of undetermined etiology - elevation of transaminases and lipase points towards a GI etiology - Med and Surg services are doing a w/u for GI causes Minimal troponin elevation: type II NJ due to increased myocardial demand in the setting of known but stable CAD (stable based on recent card cath by Dr Patel) and chronic (compensated) systolic CHF - No serial ECG evidence of acute ischemia Coronary artery disease and history of multiple interventions - last cor intervention Sep 19, 2020: showing thrombus with total occlusion of a recently place stent in the distal right coronary artery, successful thrombectomy followed by balloon angioplasty to the distal right coronary artery using 3.5 x 15 mm balloon with excellent results. - last card cath in April 2023 showing chronically occluded first obtuse marginal branch has not changed compared to previous study, patent stent in the mid LAD and distal right coronary artery with moderate disease nonobstructive disease, slightly prominent aortic arch. Congestive heart failure, chronic left ventricular systolic dysfunction. Compensated, ischemic cardiomyopathy - 2D echo was done in April 2023 with normal left ventricular size, ejection fraction 45 to 50%, akinesia of the apex and anterior septum. 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 I discussed his case with his auto overhauler Dr Patel yesterday * I discussed his CV issues in detail with him (patient) and his * Cardiac status has remained stable during the hospitalization. There is no evidence of acute coronary syndrome (type I NJ) * There is a strong possibility that symptoms were of GI source. Dr Grewal wants him off DAPT for 5 days prior to endoscopy. After having discussed this with Dr Grewal, we are stopping Plavix but have advised to continue with ASA [address] Bullock (his primary attending) and Dr Grewal are planning on di scharging the patient and endoscopy is to be carried out as outpatient after 5 days off Plavix. From a cardiac standpoint, it appears reasonable to do so. ASA and other previous cardiac meds are to continue. Outpatient f/u is advised within a week with Dr Patel. Patient and his 's questions answered in detail Clinical Quality Measures AMI/AHF: ASA po Prior to arrival: AYAKA Madsen MD FACP [facility] Aug 11, 2023 12:13
--- NOTE | 2023-08-11 18:45 | Discharge Summary ---
Diagnosis/Chief Complaint Date of Admission Aug 09, 2023 at 21:56 Date of Discharge Aug 11, 2023 at 12:00 Discharge Diagnosis Chest pain w/o evidence of NSTEMI/ACS Elevated troponin of uncertain significance DM CAD PVD Reason Hospital Visit Chief complaint: Chest pain HPI: This is a 62-year-old male clinic patient of Dr. Ha who has a past medical history peripheral vascular disease and heart disease who presented to the ER with chest pain Cardiology has been consulted along with general surgery for possible EGD reported. Discharge Summary Discharge Physical Examination Allergies: Coded Allergies: linezolid (Verified Allergy, Unknown, 06/17/19) Vitals & I&Os Vital Signs Date Time Temp Pulse Resp B/P (MAP) Pulse Ox O2 Delivery O2 Flow Rate FiO2 08/11/23 12:00 36.1 68 16 155/89 99 Room Air 08/10/23 16:00 1.00 General Appearance: Alert, Oriented X3, Cooperative Respiratory: Clear to Auscultation Cardiovascular: Regular Rate Psych/Mental Status: Mental Status NL Hospital Course Was the Problem List Reviewed?: Yes Pt is a 62y male with a medical history significant for CAD, T2DM, who presented to the ED for progressive, tearing, sternal chest pain for the last few days. He was admitted to the ICU and cardiology was consulted. EKG was unremarkable for acute processes, troponins with mild elevation, likely related to chronic CAD, CXR unremarkable. Pt remained on RA throughout his stay. Employment Instructional Associate suspected esophageal etiology of pain vs cardiac process. General surgery consulted for EGD outpatient, plavix and ASA will be held for 5 days pre-procedure. No acute events during hospital stay. Pt was deemed medically stable for discharge on 08/11/23, with outpatient follow-up with PCP in 7 days, as well as EGD and cardiology follow-up. WAYLON KOHLI MD,RESIDENT Labs (last 24 hrs) Laboratory Tests 08/09/23 20:14: White Blood Count 6.7, Red Blood Count 4.67, Hemoglobin 14.9, Hematocrit 43, Mean Corpuscular Volume 92, Mean Corpuscular Hemoglobin 32, Mean Corpuscular Hemoglobin Concent 35, Red Cell Distribution Width 12.9, Platelet Count 154, Mean Platelet Volume 10.0, Immature Granulocyte % (Auto) 1, Neutrophils (%) (Auto) 52, Lymphocytes (%) (Auto) 37, Monocytes (%) (Auto) 8, Eosinophils (%) (Auto) 2, Basophils (%) (Auto) 0, Neutrophils # (Auto) 3.5, Lymphocytes # (Auto) 2.5, Monocytes # (Auto) 0.6, Eosinophils # (Auto) 0.1, Basophils # (Auto) 0.0, Immature Granulocyte # (Auto) 0.0, Prothrombin Time 13.0, INR Comment 1.0, Activated Partial Thromboplast Time 36H, D-Dimer 0.71H, Sodium Level 136, Potassium Level 4.2, Chloride Level 102, Carbon Dioxide Level 23, Anion Gap 11, Blood Urea Nitrogen 23H, Creatinine 1.35H, Estimat Glomerular Filtration Rate 60, BUN/Creatinine Ratio 17, Glucose Level 281H, Calcium Level 8.6, Corrected Calcium 8.9, Magnesium Level 1.9, Total Bilirubin 1.0, Aspartate Amino Transf (AST/SGOT) 32, Alanine Aminotransferase (ALT/SGPT) 46, Alkaline Phosphatase 96, Total Creatine Kinase 253H, Creatine Kinase MB 6.8*H, Myoglobin 107.8H, Troponin I < 0.028, B-Type Natriuretic Peptide 156.7H, Total Protein 7.1, Albumin 3.6, Amylase Level 38, Lipase 150H 08/10/23 00:28: Troponin I < 0.028 08/10/23 04:16: Sodium Level 137, Potassium Level 3.9, Chloride Level 102, Carbon Dioxide Level 24, Anion Gap 11, Blood Urea Nitrogen 19H, Creatinine 1.19, Estimat Glomerular Filtration Rate 70, BUN/Creatinine Ratio 16, Glucose Level 200H, Calcium Level 8.1L, Corrected Calcium 8.7, Total Bilirubin 0.7, Aspartate Amino Transf (AST/SGOT) 115H, Alanine Aminotransferase (ALT/SGPT) 111H, Alkaline Phosphatase 105, Troponin I 0.038H, Total Protein 6.2L, Albumin 3.2, Triglycerides Level 186H, Cholesterol Level 125, LDL Cholesterol Direct 41, VLDL Cholesterol 37, HDL Cholesterol 46 08/10/23 04:26: White Blood Count 6.6, Red Blood Count 4.27L, Hemoglobin 13.5, Hematocrit 40, Mean Corpuscular Volume 93, Mean Corpuscular Hemoglobin 32, Mean Corpuscular Hemoglobin Concent 34, Red Cell Distribution Width 12.9, Platelet Count 142, Mean Platelet Volume 10.7, Immature Granulocyte % (Auto) 1, Neutrophils (%) (Auto) 48, Lymphocytes (%) (Auto) 42, Monocytes (%) (Auto) 8, Eosinophils (%) (Auto) 1, Basophils (%) (Auto) 1, Neutrophils # (Auto) 3.2, Lymphocytes # (Auto) 2.7, Monocytes # (Auto) 0.5, Eosinophils # (Auto) 0.1, Basophils # (Auto) 0.0, Immature Granulocyte # (Auto) 0.0 08/10/23 10:44: Glucometer 138H 08/10/23 15:46: Glucometer 94 08/10/23 20:58: Glucometer 189H 08/11/23 04:12: White Blood Count 7.1, Red Blood Count 4.84, Hemoglobin 15.1, Hematocrit 45, Mean Corpuscular Volume 92, Mean Corpuscular Hemoglobin 31, Mean Corpuscular Hemoglobin Concent 34, Red Cell Distribution Width 13.0, Platelet Count 155, Mean Platelet Volume 10.4, Immature Granulocyte % (Auto) 0, Neutrophils (%) (Auto) 48, Lymphocytes (%) (Auto) 42, Monocytes (%) (Auto) 9, Eosinophils (%) (Auto) 1, Basophils (%) (Auto) 0, Neutrophils # (Auto) 3.4, Lymphocytes # (Auto) 3.0, Monocytes # (Auto) 0.6, Eosinophils # (Auto) 0.1, Basophils # (Auto) 0.0, Immature Granulocyte # (Auto) 0.0, Sodium Level 141, Potassium Level 4.4, Chloride Level 105, Carbon Dioxide Level 26, Anion Gap 10, Blood Urea Nitrogen 14, Creatinine 1.06, Estimat Glomerular Filtration Rate 80, BUN/Creatinine Ratio 13, Glucose Level 137H, Calcium Level 8.6, Corrected Calcium 9.2, Total Adelso irubin 1.0, Aspartate Amino Transf (AST/SGOT) 46H, Alanine Aminotransferase (ALT/SGPT) 79H, Alkaline Phosphatase 105, Total Protein 6.6, Albumin 3.3 08/11/23 10:14: Glucometer 273H Pending Labs Laboratory Tests 08/09/23 20:14: White Blood Count 6.7, Red Blood Count 4.67, Hemoglobin 14.9, Hematocrit 43, Mean Corpuscular Volume 92, Mean Corpuscular Hemoglobin 32, Mean Corpuscular Hemoglobin Concent 35, Red Cell Distribution Width 12.9, Platelet Count 154, Mean Platelet Volume 10.0, Immature Granulocyte % (Auto) 1, Neutrophils (%) ( Auto) 52, Lymphocytes (%) (Auto) 37, Monocytes (%) (Auto) 8, Eosinophils (%) (Auto) 2, Basophils (%) (Auto) 0, Neutrophils # (Auto) 3.5, Lymphocytes # (Auto) 2.5, Monocytes # (Auto) 0.6, Eosinophils # (Auto) 0.1, Basophils # (Auto) 0.0, Immature Granulocyte # (Auto) 0.0, Prothrombin Time 13.0, INR Comment 1.0, Activated Partial Thromboplast Time 36, D-Dimer 0.71, Sodium Level 136, Potassium Level 4.2, Chloride Level 102, Carbon Dioxide Level 23, Anion Gap 11, Blood Urea Nitrogen 23, Creatinine 1.35, Estimat Glomerular Filtration Rate 60, BUN/Creatinine Ratio 17, Glucose Level 281, Calcium Level 8.6, Corrected Calcium 8.9, Magnesium Level 1.9, Total Bilirubin 1.0, Aspartate Amino Transf (AST/SGOT) 32, Alanine Aminotransferase (ALT/SGPT) 46, Alkaline Phosphatase 96, Total Creatine Kinase 253, Creatine Kinase MB 6.8, Myoglobin 107.8, Troponin I < 0.028, B-Type Natriuretic Peptide 156.7, Total Protein 7.1, Albumin 3.6, Amylase Level 38, Lipase 150 08/10/23 00:28: Troponin I < 0.028 08/10/23 04:16: Sodium Level 137, Potassium Level 3.9, Chloride Level 102, Carbon Dioxide Level 24, Anion Gap 11, Blood Urea Nitrogen 19, Creatinine 1.19, Estimat Glomerular Filtration Rate 70, BUN/Creatinine Ratio 16, Glucose Level 200, Calcium Level 8.1, Corrected Calcium 8.7, Total Bilirubin 0.7, Aspartate Amino Transf (AST/SGOT) 115, Alanine Aminotransferase (ALT/SGPT) 111, Alkaline Phosphatase 105, Troponin I 0.038, Total Protein 6.2, Albumin 3.2, Triglycerides Level 186, Cholesterol Level 125, LDL Cholesterol Direct 41, VLDL Cholesterol 37, HDL Cholesterol 46 08/10/23 04:26: White Blood Count 6.6, Red Blood Count 4.27, Hemoglobin 13.5, Hematocrit 40, Mean Corpuscular Volume 93, Mean Corpuscular Hemoglobin 32, Mean Corpuscular Hemoglobin Concent 34, Red Cell Distribution Width 12.9, Platelet Count 142, Mean Platelet Volume 10.7, Immature Granulocyte % (Auto) 1, Neutrophils (%) (Auto) 48, Lymphocytes (%) (Auto) 42, Monocytes (%) (Auto) 8, Eosinophils (%) (Auto) 1, Basophils (%) (Auto) 1, Neutrophils # (Auto) 3.2, Lymphocytes # (Auto) 2.7, Monocytes # (Auto) 0.5, Eosinophils # (Auto) 0.1, Basophils # (Auto) 0.0, Immature Granulocyte # (Auto) 0.0 08/10/23 10:44: Glucometer 138 08/10/23 15:46: Glucometer 94 08/10/23 20:58: Glucometer 189 08/11/23 04:12: White Blood Count 7.1, Red Blood Count 4.84, Hemoglobin 15.1, Hematocrit 45, Mean Corpuscular Volume 92, Mean Corpuscular Hemoglobin 31, Mean Corpuscular Hemoglobin Concent 34, Red Cell Distribution Width 13.0, Platelet Count 155, Mean Platelet Volume 10.4, Immature Granulocyte % (Auto) 0, Neutrophils (%) (Auto) 48, Lymphocytes (%) (Auto) 42, Monocytes (%) (Auto) 9, Eosinophils (%) (Auto) 1, Basophils (%) (Auto) 0, Neutrophils # (Auto) 3.4, Lymphocytes # (Auto) 3.0, Monocytes # (Auto) 0.6, Eosinophils # (Auto) 0.1, Basophils # (Auto) 0.0, Immature Granulocyte # (Auto) 0.0, Sodium Level 141, Potassium Level 4.4, Chloride Level 105, Carbon Dioxide Level 26, Anion Gap 10, Blood Urea Nitrogen 14, Creatinine 1.06, Estimat Glomerular Filtration Rate 80, BUN/Creatinine Ratio 13, Glucose Level 137, Calcium Level 8.6, Corrected Calcium 9.2, Total Bilirubin 1.0, Aspartate Amino Transf (AST/SGOT) 46, Alanine Aminotransferase (ALT/SGPT) 79, Alkaline Phosphatase 105, Total Protein 6.6, Albumin 3.3 08/11/23 10:14: Glucometer 273 Discharge Home Medications: Active Scripts Active Sucralfate 1 Gram Tablet 1 Gm PO ACHS 7 Days Protonix (Pantoprazole Sodium) 40 Mg Granpkt.dr 40 Mg PO BID 30 Days Clopidogrel (Clopidogrel Bisulfate) 75 Mg Tablet 75 Mg PO DAILY 5 Days Hold for 5 days. Aspirin EC (Aspirin) 81 Mg Tablet.dr 81 Mg PO DAILY 5 Days Hold for 5 days. Reported Humalog Kwikpen (Insulin Lispro) 100 Unit/Ml Insuln.pen 15 Units SC AC Ezetimibe 10 Mg Tablet 10 Mg PO DAILY Carvedilol 3.125 Mg Tablet 3.125 Mg PO BID Finasteride 5 Mg Tablet 5 Mg PO HS Ranolazine ER (Ranolazine) 500 Mg Tab.er.12h 500 Mg PO BID Atorvastatin Calcium 80 Mg Tablet 80 Mg PO DAILY Tylenol Extra Strength (Acetaminophen) 500 Mg Tablet 1,000 Mg PO HS TAKES 2 (500MG) TABLETS Tresiba Flextouch U-200 (Insulin Degludec) 200 Unit/Ml (3 Ml) Insuln.pen 65 Units SC DAILY Clonazepam 1 Mg Tablet 2 Mg PO HS TAKES 2 (1 MG) TABLETS Instructions to patient/family Please see electronic discharge instructions given to patient. Clinical Quality Measures AMI/AHF: ASA po Prior to arrival: NAKUL Becerra DO Aug 11, 2023 18:45
--- NOTE | 2023-08-13 07:41 | Progress Note - Surgery ---
Subjective Date Seen by a Provider: Aug 11, 2023 Time Seen by a Provider: 07:39 Subjective/Events-last exam Feeling the same. Pain maybe less frequent. Tolerating diet. Denies n/v fever sweats chills shortness of breath or chest pain at this time. Objective Exam Capillary Refill : Less Than 3 Seconds General Appearance: No Apparent Distress, WD/WN, Chronically ill HEENT: PERRL/EOMI, Normal ENT Inspection Neck: Full Range of Motion, Normal Inspection, Non Tender, Supple Respiratory: Chest Non Tender, No Accessory Muscle Use, No Respiratory Distress Cardiovascular: Regular Rate, Rhythm, No JVD, Normal Peripheral Pulses Peripheral Pulses: 2+ Dorsalis Pedis (R), 2+ Left Dors-Pedis (L), 2+ Radial Pulses (R), 2+ Radial Pulses (L) Gastrointestinal: non tender, soft; No tenderness Extremity: Normal Capillary Refill, Normal Inspection, Normal Range of Motion, Non Tender, No Calf Tenderness, No Pedal Edema, Other (bilateral toe amputations) Neurologic/Psychiatric: Alert, Oriented x3, No Motor/Sensory Deficits, Normal Mood/Affect Skin: Normal Color, Warm/Dry Lymphatic: No Adenopathy Assessment/Plan Assessment/Plan Assessment/Plan Chest pain/epigastric pain Possible esophageal pathology vs musculoskeletal GERD HTN Long-term current antiplatelets Tolerating diet EGD will plan for Sunday if can Hold antiplatelets, can do as outpatient, Discussed with Dr. Lopez and wants at least on Aspirin Protonix bid Carafate qid Patient and in agreement with plan. Clinical Quality Measures AMI/AHF: ASA po Prior to arrival: No ADRIANO STARR DO Aug 13, 2023 07:41
== END 2023-08-11 12:00 | disposition home or self-care (01) ==
LOC: EDUNIT# 20:08 → ER 20:11 → UNDOADMOB 21:56 → ICU 21:56 → UNDODISOB 08-11 12:00
PROVIDERS: ADMIT Internal Medicine; ATTEND Internal Medicine
DX: R07.89 Other chest pain (principal); R79.89 Other specified abnormal findings of blood chemistry; I25.10 Atherosclerotic heart disease of native coronary artery without angina pectoris; R10.13 Epigastric pain; I50.22 Chronic systolic (congestive) heart failure; I42.0 Dilated cardiomyopathy; R74.01 Elevation of levels of liver transaminase levels; I11.0 Hypertensive heart disease with heart failure; E11.51 Type 2 diabetes mellitus with diabetic peripheral angiopathy without gangrene; K21.9 Gastro-esophageal reflux disease without esophagitis; I21.A1 Myocardial infarction type 2; F32.A Depression, unspecified; F41.9 Anxiety disorder, unspecified; Z79.82 Long term (current) use of aspirin; Z79.899 Other long term (current) drug therapy; Z79.01 Long term (current) use of anticoagulants; Z79.4 Long term (current) use of insulin; Z89.432 Acquired absence of left foot; Z79.02 Long term (current) use of antithrombotics/antiplatelets
CPT/HCPCS: 71045; 71275; 74177; 80053 ×3; 80061; 82150; 82550; 82553; 82947 ×2; 83690; 83735; 83874; 83880; 84484 ×2; 85025 ×3; 85379; 85610; 85730; 93005; 93041; 96372 ×3; 96375; 96376 ×2; 99284; G0378; 36415

== ENCOUNTER 2023-08-15 07:15 | Day surgery (SDC) | payer OTHER ==
[~2023-08-15] VITALS: Ht 193 cm; Wt 118.0 kg
[~2023-08-15 07:15] MED LIST changes: +SUCR1TAB PO
[2023-08-15] MEDS ORDERED: LACTATED RINGERS 1,000 ML 1,000 ML IV STA (07:16)
[2023-08-15] MEDS ORDERED: MIDAZOLAM INJ 2 MG/2 ML VIAL ONE (07:29)
[2023-08-15] MEDS ORDERED: HURRICAINE EXT TUBE (BENZOCAINE) XX PRN (07:30)
[2023-08-15 07:41] VITALS: BP 140/85
--- NOTE | 2023-08-15 07:49 | Progress Note-Pre Operative ---
Pre-Operative Progress Note Date H&P Reviewed: Aug 15, 2023 Time H&P Reviewed: 07:48 History & Physical: H&P Reviewed, Patient Examed, No changes noted Pre-Operative Diagnosis: chest pain epigastric pain ADRIANO STARR DO Aug 15, 2023 07:49
--- NOTE | 2023-08-15 08:08 | Progress Note-Post Operative ---
Post-Operative Progess Note Surgeon (s)/After School Coordinator (s) Surgeon ADRIANO STARR DO After School Coordinator: n/a Pre-Operative Diagnosis Epigastric pain, chest pain Post-Operative Diagnosis Gastric polyps Procedure & Operative Findings Date of Procedure 08/15/23 Procedure Performed/Findings EGD w/ biopsy Anesthesia Type per Anesthesiologist Estimated Blood Loss Estimated blood loss (mL): none Specimens/Packing Specimens Removed Antrum ADRIANO STARR DO Aug 15, 2023 08:08
[2023-08-15 08:10] VITALS: BP 135/83
--- NOTE | 2023-08-15 08:10 | Discharge Inst-Simple/Standard ---
Discharge Inst-Standard Patient Instructions/Follow Up Plan of Care/Instructions/FU: 2-3 weeks Carmina Activity as Tolerated: Yes Discharge Diet: Regular Diet ADRIANO STARR DO Aug 15, 2023 08:10
[2023-08-15 08:15] VITALS: BP 142/88
--- NOTE | 2023-08-15 08:27 | Anesthesia-General Post-Op ---
MAC Patient Condition Mental Status/LOC: Same as Preop Cardiovascular: Satisfactory Nausea/Vomiting: Absent Respiratory: Satisfactory Pain: Controlled Complications: Absent Post Op Complications Complications None Follow Up Care/Instructions Patient Instructions None needed. Anesthesiology Discharge Order Discharge Order Patient is doing well, no complaints, stable vital signs, no apparent adverse anesthesia problems. No complications reported per nursing. BERNIE REDD DO Aug 15, 2023 08:27
[2023-08-15 08:45] VITALS: BP 142/88
--- NOTE | 2023-08-15 14:38 | OPERATIVE REPORT ---
DATE OF SERVICE: 08/15/2023 PREOPERATIVE DIAGNOSES: Epigastric and chest pain. POSTOPERATIVE DIAGNOSES: Gastric polyps, food bolus in the stomach. PROCEDURE: EGD with biopsy. SURGEON: Adriano Grewal DO ANESTHESIA: Per MDA. ESTIMATED BLOOD LOSS: None. COMPLICATIONS: None. INDICATIONS: The patient is a 63-year-old male with recent admission for epigastric pain, chest pain, was recommended to have EGD performed. He understands risks and benefits of procedure and wished to proceed. Consent was signed in chart. DESCRIPTION OF PROCEDURE: The patient was taken to endoscopy suite, placed in left lateral recumbent position. Timeout was performed. Scope was inserted in the mouth, down the esophagus, stomach, into the duodenum without difficulty. No polyps, masses or ulcerations within the duodenum. Scope was slowly retracted back into stomach where it was further insufflated. Multiple gastric polyps benign appearance present. Biopsy of the antrum was obtained. Food bolus still in the stomach. Scope was retroflexed noting no other pathology. Scope was returned to its normal position, slowly withdrawn until distal esophagus. No polyps, masses or ulcerations. No erythematous changes. All had normal appearance. Scope was slowly retracted back until completely removed, noting no other pathology. The patient tolerated the procedure well without complications, taken to recovery room in stable condition. RECOMMENDATIONS: The patient will be recommended to continue on Protonix and Carafate. Await biopsy results. He will follow up in my office in 2-3 weeks. Further recommendation pending biopsy results, how symptoms are doing at that time. Job ID: [id number] DocumentID: [id number] Dictated Date: 08/15/2023 08:09:11 Entry Level Account Executive Date: 08/15/2023 14:35:00 Dictated By: ADRIANO GREWAL DO
== END 2023-08-15 08:45 | disposition home or self-care (01) ==
LOC: ENDO 07:15
PROVIDERS: ATTEND Surgery
DX: K31.7 Polyp of stomach and duodenum (principal); K31.89 Other diseases of stomach and duodenum
CPT/HCPCS: 88305

== ENCOUNTER → 2023-09-10 | Outpatient (CLI) | payer BC, OTHER ==
--- NOTE | 2023-09-10 12:24 | Diagnostic Imaging Report ---
CLINICAL INDICATION: Patient with gastric pain, nausea, and vomiting. COMPARISON: None. PROCEDURE: Solid gastric emptying study. After oral ingestion of 1.06 millicuries of technetium 99M sulfur colloid mixed with scrambled egg, sequential imaging over the abdomen was performed. Computer analysis was performed and gastric emptying curves were calculated. FINDINGS: There is gastric emptying demonstrated with sequential imaging. The residual retained gastric activity: 1 hour: 95% (less than 30% equals rapid and greater than 90% equals delayed) 2 hours: 56% (greater than 60% represents abnormally delayed) 3 hours: 25% (greater than 30% represents abnormally delayed) 4 hours: 2% (greater than 10% represents abnormally delayed) IMPRESSION: There is delayed gastric emptying at the 1 hour time point; otherwise, the remainder of the time points are within normal limits. Dictated by: Dictated on workstation # [id number]
== END ==
LOC: CARD 06:58
PROVIDERS: ATTEND Surgery
DX: R10.13 Epigastric pain (principal)
CPT/HCPCS: 78264; A9541

== ENCOUNTER → 2023-10-12 | Outpatient (CLI) | payer OTHER ==
--- NOTE | 2023-10-12 17:13 | Diagnostic Imaging Report ---
INDICATION: Cough and shortness of breath. COMPARISON: Comparison is made with prior examination of 08/09/2023. FINDINGS: The heart size is normal. There is some left basilar subsegmental atelectasis and/or pneumonitis. There is no pleural effusion or pneumothorax. Mediastinum is unremarkable. IMPRESSION: Left basilar subsegmental atelectasis and/or pneumonitis. Dictated by: Dictated on workstation # [id number]
== END ==
LOC: RAD 13:54
PROVIDERS: ATTEND Family Medicine
DX: R05.1 Acute cough (principal); R06.02 Shortness of breath
CPT/HCPCS: 71046